=== PATIENT | male | born 1960 | race Caucasian/White ===

== ENCOUNTER → 2017-04-12 08:08 | Outpatient (CLI) | payer OTHER, SELFPAY ==
[2017-04-12 12:27] LABS: Absolute Lymphocyte Count 2.31 X10^3/ul (0.83-4.51); Absolute Neutrophil Count 3.6 X10^3/uL (2.0-7.7); Basophil# 0.02 X10^3/uL; Basophil% 0.3 % (0-1); Eosinophil# 0.08 X10^3/uL; Eosinophils% 1.2 % (0-5); Hematocrit 49.1 % (40-54); Hemoglobin 16.2 g/dl (13.0-16.5); Lymphocyte # 2.31 X10^3/ul (4.0); Lymphocyte % 35.6 % (19-41); Mean Corpuscular Hgb 32.5 pg (27.0-32.0); Mean Corpuscular Volume 98.6 fL (80-94); Mean Platelet Vol. 12.6 fl (6.2-12.0); Monocyte# 0.42 X10^3/uL; Monocyte% 6.5 % (0-10); Neutrophil # 3.64 X10^3/uL (2.7-7.7); Neutrophil % 56.2 % (47-70); Platelet Count 154 K/mm3 (150-450); RBC Distribution Width CV 14.4 % (11.6-14.6); RBC Distribution Width SD 51.5 fl (35.1-43.9); Red Blood Count 4.98 M/mm3 (4.6-6.2); White Blood Count 6.5 K/mm3 (4.4-11.0)
[2017-04-12 12:42] LABS: POSITIVE COUNT NO; POSITIVE DIFFERENTIAL NO; POSITIVE MORPHOLOGY NO
[2017-04-12 13:06] LABS: AST(SGOT) 23 U/L (15-37); Alanine Aminotransfer ALT/SGPT 51 U/L (16-61); Albumin, Serum 3.9 g/dL (3.2-5.0); Alkaline Phosphatase 83 U/L (45-117); Anion Gap 8 (5-15); BUN 13 mg/dL (7-18); BUN/Creat Ratio 11.6 RATIO (10-20); Chloride 102 mmol/L (98-107); Cholesterol 191 mg/dL (200); Creatinine, Serum 1.12 mg/dL (0.70-1.30); EST Glomerular Filtration Rate 71 mL/min (>60); Est Glom Filt Rate - Afr Amer 86 mL/min (>60); Globulin 3.8 g/dL (2.2-4.2); Glucose 98 mg/dL (74-106); High Density Lipoprotein 51 mg/dL; PSA,Total - Annual Screen 0.52 ng/mL (0.00-4.00); Protein, Total 7.7 g/dL (6.4-8.2); Sodium Level 139 mmol/L (136-145); Triglycerides 140 mg/dL; Very Low Density Lipoprotein 28 mg/dL (5-40)
== END ==
PROVIDERS: Family Provider Family Medicine; PCP Family Medicine; Visit Provider Family Medicine
DX: Z00.00 Encounter for general adult medical examination without abnormal findings (principal); E03.9 Hypothyroidism, unspecified; E78.5 Hyperlipidemia, unspecified; Z12.5 Encounter for screening for malignant neoplasm of prostate
CPT/HCPCS: 36415; 80053; 80061; 84153; 84443; 85025; G0103

== ENCOUNTER → 2017-06-11 08:42 | Outpatient (CLI) | payer OTHER, SELFPAY ==
[2017-06-11 12:23] LABS: T4 Free Direct 1.54 ng/dL (0.76-1.46); Thyroid Stim Hormone (TSH) 0.49 uIU/mL (0.358-3.74)
== END ==
LOC: LAB.FUTURE 12-12 00:44 → BFHLAB 07-16 13:40
PROVIDERS: Family Provider Family Medicine; PCP Family Medicine; Visit Provider Family Medicine
DX: E03.9 Hypothyroidism, unspecified (principal)
CPT/HCPCS: 36415; 84439; 84443

== ENCOUNTER → 2018-07-10 | Outpatient (CLI) | payer OTHER, SELFPAY ==
[2018-07-10 13:00] LABS: ALB/GLOB Ratio 1.2 RATIO (0.9-2.4); AST(SGOT) 14 U/L (15-37); Alanine Aminotransfer ALT/SGPT 30 U/L (16-61); Albumin, Serum 4.1 g/dL (3.2-5.0); Alkaline Phosphatase 80 U/L (45-117); Anion Gap 2 (5-15); BUN 16 mg/dL (7-18); Chloride 107 mmol/L (98-107); Cholesterol 138 mg/dL (200); Creatinine, Serum 1.14 mg/dL (0.70-1.30); EST Glomerular Filtration Rate 70 mL/min (>60); Est Glom Filt Rate - Afr Amer 84 mL/min (>60); Globulin 3.4 g/dL (2.2-4.2); Glucose 108 mg/dL (74-106); High Density Lipoprotein 48 mg/dL; Protein, Total 7.5 g/dL (6.4-8.2); Sodium Level 138 mmol/L (136-145); T4 Free Direct 1.47 ng/dL (0.76-1.46); Thyroid Stim Hormone (TSH) 0.26 uIU/mL (0.358-3.74); Triglycerides 90 mg/dL; Very Low Density Lipoprotein 18 mg/dL (5-40)
== END | disposition home or self-care (01) ==
LOC: LAB.FUTURE 08:28
PROVIDERS: Family Provider Family Medicine; PCP Family Medicine; Visit Provider Family Medicine
DX: Z00.00 Encounter for general adult medical examination without abnormal findings (principal); E03.9 Hypothyroidism, unspecified
CPT/HCPCS: 36415; 80053; 80061; 84439; 84443

== ENCOUNTER → 2018-08-12 05:35 | Outpatient (CLI) | payer OTHER, SELFPAY ==
--- NOTE | 2018-08-12 17:35 | TISS_PTH ---
PATIENT: FREDDIE DUMONT LOC: [facility] U#:[id number] AGE/SX: 64/M ROOM: RE08/12/[address]: Dr. Cisco Dozier, : 1960 BED: DIS: SPEC #: [id number] RECD: 08/13/18 12:08 STATUS: MICHAEL BERONICA #: [id number] ANALILIA: 08/12/18 17:[address]: Cisco Dozier DEPT: SURGICAL PATHOLOGY RECD BY: Tyesha Mack Tissues: Skin of head, NOS Procedures: Surgery Specimen Level IV HEADER OPERATION: Punch biopsy - scalp PRE-OP DIAGNOSIS: Change lesion anterior scalp, probable SK, rule out squamous cell TISSUE SUBMITTED: 4 mm punch biopsy, nevus anterior scalp MICROSCOPIC DIAGNOSIS Scalp lesion, punch biopsy: Superficially excised seborrheic keratosis. FA:celestine 08/14/18 MICROSCOPIC DESCRIPTION Slides are reviewed. GROSS DESCRIPTION Received is one container labeled with the patient's name and not further designated. The specimen consists of a grayish-white skin fragment measuring 2 mm in greatest dimension. The specimen is totally submitted in one cassette. / FA:celestine 08/13/18 TC:1 CPT: 34128
== END ==
PROVIDERS: Family Provider Family Medicine; PCP Family Medicine; Referring Provider Family Medicine; Visit Provider Family Medicine
DX: D22.4 Melanocytic nevi of scalp and neck (principal)
CPT/HCPCS: 88305

== ENCOUNTER → 2019-07-10 15:27 | Outpatient (CLI) | payer OTHER, SELFPAY | PROVIDERS: PCP Family Medicine; Visit Provider Family Medicine | DX: R30.0 Dysuria (principal) | CPT/HCPCS: 87086 ==

== ENCOUNTER → 2019-08-06 | Outpatient (CLI) | payer OTHER, SELFPAY ==
[2019-08-06 12:33] LABS: Absolute Lymphocyte Count 1.76 X10^3/uL (0.83-4.51); Basophil# 0.03 X10^3/uL; Basophil% 0.4 % (0-1); Eosinophil# 0.08 X10^3/uL; Eosinophils% 1.1 % (0-5); Hematocrit 48.3 % (40-54); Lymphocyte # 1.76 X10^3/ul (4.0); Lymphocyte % 23.9 % (19-41); Mean Corp Hgb Conc 33.1 g/dL (32-36); Mean Corpuscular Hgb 32.9 pg (27.0-32.0); Mean Corpuscular Volume 99.2 fL (80-94); Mean Platelet Vol. 12.8 fl (6.2-12.0); Monocyte% 6.8 % (0-10); NRBC Flagged by Analyzer 0 % (0-5); Neutrophil # 4.96 X10^3/uL (2.7-7.7); Neutrophil % 67.5 % (47-70); Platelet Count 124 K/mm3 (150-450); RBC Distribution Width CV 12.8 % (11.6-14.6); RBC Distribution Width SD 46.5 fl (35.1-43.9); Red Blood Count 4.87 M/mm3 (4.6-6.2); White Blood Count 7.4 K/mm3 (4.4-11.0)
[2019-08-06 12:39] LABS: Hemoglobin A1c 5.5 % (3.8-5.6)
[2019-08-06 12:42] LABS: ALB/GLOB Ratio 1.1 RATIO (0.9-2.4); AST(SGOT) 14 U/L (15-37); Alanine Aminotransfer ALT/SGPT 31 U/L (16-61); Alkaline Phosphatase 76 U/L (45-117); Anion Gap 7 (5-15); BUN 19 mg/dL (7-18); BUN/Creat Ratio 18.1 RATIO (10-20); Chloride 108 mmol/L (98-107); Cholesterol 142 mg/dL (200); Creatinine, Serum 1.05 mg/dL (0.70-1.30); EST Glomerular Filtration Rate 76 mL/min (>60); Est Glom Filt Rate - Afr Amer 92 mL/min (>60); Globulin 3.5 g/dL (2.2-4.2); Glucose 100 mg/dL (74-106); High Density Lipoprotein 40 mg/dL; PSA,Total - Annual Screen 0.48 ng/mL (0.00-4.00); Potassium 3.8 mmol/L (3.5-5.1); Protein, Total 7.5 g/dL (6.4-8.2); Sodium Level 142 mmol/L (136-145); T4 Free Direct 1.45 ng/dL (0.76-1.46); Thyroid Stim Hormone (TSH) 0.25 uIU/mL (0.358-3.74); Triglycerides 99 mg/dL; Very Low Density Lipoprotein 20 mg/dL (5-40)
== END | disposition home or self-care (01) ==
LOC: BFHLAB 08:03
PROVIDERS: PCP Family Medicine; Visit Provider Family Medicine
DX: Z00.00 Encounter for general adult medical examination without abnormal findings (principal); E03.9 Hypothyroidism, unspecified; R73.01 Impaired fasting glucose
CPT/HCPCS: 36415; 80053; 80061; 83036; 84153; 84439; 84443; 85025; G0103

== ENCOUNTER 2020-07-29 21:26 | Emergency (ER) | payer OTHER, SELFPAY ==
[2020-07-29 21:28] VITALS: BP 134/95; PULSE 74; RESP 18; TEMP 36.8; O2SAT 97; BMI 27.7
--- NOTE | 2020-07-29 21:37 | CT_ITS ---
STUDY: CT SOFT TISSUE NECK WITHOUT CONTRAST REASON FOR EXAM: Male, 60 years old. choking episode RADIATION DOSAGE (If Supplied By Facility): CTDIvol = ( 17.57 ) mGy, DLP = ( 654.11 ) mGycm TECHNIQUE: The patient was scanned in a multi-detector CT scanner. High resolution transaxial imaging was performed without the administration of intravenous contrast material. Sagittal and coronal images were reconstructed. Individualized dose optimization techniques were used for this CT. COMPARISON: None. FINDINGS: Normal bilateral parotid glands. Normal bilateral welder boilermaker spaces. Normal bilateral parapharyngeal spaces. Normal bilateral carotid spaces. Normal bilateral sublingual and submandibular glands and spaces. Normal visualized nasopharynx. Normal retropharyngeal space. Normal perivertebral space. Normal visualized bilateral faucial tonsils. The visualized tongue, tongue base and oropharynx are normal. The visualized cervical lymph nodes (levels I-) are within normal size limits, and maintain normal morphology. There is no demonstrated solid or cystic mass lesion. Normal epiglottis, bilateral vallecula and hypopharynx. The pre-epiglottic and paraglottic adipose spaces are normal. Normal visualized bilateral piriform sinuses, aryepiglottic folds, vocal cords, and arytenoid-cricoid articulations. Normal subglottic trachea. Normal bilateral lobes of the thyroid gland. Normal visualized pulmonary apices. Normal visualized paranasal sinuses. Normal visualized cervical spine. CT/Soft Tissue Neck without Contr IMPRESSION: Normal unenhanced CT examination of the soft tissues of the neck. Electronically Signed: Horacio Church DO at 22:59 EDT Tel , Service support ,
--- NOTE | 2020-07-29 21:39 | CT_ITS ---
STUDY: CT CHEST WITHOUT CONTRAST REASON FOR EXAM: Male, 60 years old. choking episode RADIATION DOSAGE (If Supplied By Facility): CTDIvol = ( 14.37 ) mGy, DLP = ( 405.42 ) mGycm TECHNIQUE: Transaxial imaging was performed without the administration of intravenous contrast material. Individualized dose optimization techniques were used for this CT. COMPARISON: None. FINDINGS: The lungs are normal. There is no demonstrated pleural abnormality. Normal heart and pericardium. Normal mediastinum. Normal hilar regions. Normal unenhanced pulmonary arteries. Normal aorta arch and descending thoracic aorta. Normal osseous structures. There is no demonstrated abnormality of the visualized upper abdomen. CT/Chest without Contrast IMPRESSION: Normal unenhanced CT Chest examination. Electronically Signed: Horacio Church DO at 22:59 EDT Tel , Service support ,
--- NOTE | 2020-07-29 21:39 | EDS_ITS ---
HPI History of Present Illness Chief Complaint: Foreign Body Detail of Chief Complaint: Choking episode Informant: patient and spouse/S.O. Narrative Narrative: Patient presents after what he refers was a choking episode that occurred this evening. Patient states he was not eating anything but suddenly felt his throat tightening and he could not get any air. He had a similar episode happen this past Saturday. At that time he was eating and choked on something. He went to the local fire station and they perform the Heimlich maneuver. He states he was fine throughout the week with no other symptoms. Tonight he was not eating but had the same sensation develop. He states paramedics did perform a Heimlich maneuver and he did get some phlegm up but no food particles. Patient does recall 2 similar episodes in the past several [facility] History (Updated 07/29/20 @ 23:[address] Melonie Miguel MD) High cholesterol Hypothyroidism Home Medications levothyroxine 150 mcg PO DAILY 07/29/20 [History Last Taken Unknown] prednisone 40 mg PO DAILY #8 tab 07/29/20 [Rx Last Taken Unknown] simvastatin 21 mg PO DAILY 07/29/20 [History Last Taken Unknown] Allergy/AdvReac Type Severity Reaction Status Date / Time No Known Allergies Allergy Verified 07/29/20 21:31 Social History Smoking Status: Current every day smoker tobacco type: cigarettes ROS ROS ED Constitutional Constitutional ED: Denies chills or fever(s) Eyes Eyes: Denies change in vision ENT ENT ED: Denies sore throat Cardiovascular Cardiovascular: Denies chest pain Respiratory/Chest Respiratory/Chest: Denies cough or dyspnea Gastrointestinal Gastrointestinal: Denies abdominal pain, diarrhea, nausea or vomiting Genitourinary Genitourinary ED: Denies dysuria Musculoskeletal Musculoskeletal: Denies back pain Integumentary Denies rash Neurologic Neurologic: Denies headache(s) or weakness Psychiatric Psychiatric: Denies anxiety or depression Endocrine Endocrinology: Denies polydipsia or polyuria Allergic/Immunologic Allergic/Immunologic ED: Denies urticaria EXAM Physical Exam Const Vital Signs: 07/29/20 21:28 07/29/20 21:32 07/29/20 22:50 Temperature 98.3 F Temperature Source Oral Pulse Rate 74 62 Respiratory Rate 18 15 Respiratory Pattern Normal Blood Pressure 134/95 H 130/88 H Blood Pressure Mean 108 102 Pulse Ox 97 94 Oxygen Delivery Method Room Air Room Air Positive well nourished and well developed General Appearance ED: well developed Eyes PERRL and EOMs intact bilaterally Neck no lymphadenopathy and supple Chest Wall inspection of chest normal and palpation of chest normal Resp normal respiratory effort and clear to auscultation bilaterally Cardio regular rate and regular rhythm GI normal to inspection, nondistended, normoactive bowel sounds Extremity normal to inspection Neuro oriented x3 Sensorium / Orientation: alert Psych mental status grossly normal Skin no rashes or lesions noted MDM MDM MDM Narrative Medical decision making narrative: Patient was given Benadryl and Solu-Medrol to ensure no allergic reaction or airway swelling. He is placed on alarm security or surveillance monitor with pulse ox. CT scan of the neck and chest are obtained. Radiography Diagnostic Testing: Radiology Impression Soft Tissue Neck CT 07/29/20 21:37 IMPRESSION: Normal unenhanced CT examination of the soft tissues of the neck. Electronically Signed: Horacio Church DO at 22:59 EDT Tel , Service support , Chest CT 07/29/20 21:39 IMPRESSION: Normal unenhanced CT Chest examination. Electronically Signed: Horacio Church DO at 22:59 EDT Tel , Service support , Treatment and Re-Evaluation Comments:: CT scans do not show any obvious foreign body or abnormal narrowing of the airway. No masses noted. On repeat evaluation patient is resting comfortably and states he feels like his airway is more open. I do question as to whether the patient may have vocal cord spasm causing his symptoms as he did not have a particular choking episode tonight as he was not eating anything. I will refer him to ENT for follow-up. Discharge Plan Triage Chief Complaint: Foreign Body ED Provider: Melonie Miguel Dx/Rx/DC Orders Clinical Impression: Spasm of vocal cords Instructions: ED Dyspnea Prescriptions: New prednisone 20 mg tablet 40 mg PO DAILY Qty: 8 RF: 0 No Action simvastatin 20 mg tablet 21 mg PO DAILY RF: 0 levothyroxine 150 mcg tablet 150 mcg PO DAILY RF: 0 Primary Care Provider: Cisco Dozier Referrals: Wolfgang Chavez MD [STAFF PHYSICIAN] - As soon as possible Cisco Dozier DO [Primary Care Provider] - As soon as possible Disposition Disposition: Home, self care
[2020-07-29] MEDS: 0.9% Normal Saline 1,000 ML 150 ML IV (21:53)
[2020-07-29] MEDS: MethylPREDNISolone 125 MG/2 ML Vial IV (21:54)
[2020-07-29] MEDS: DiphenhydrAMINE 50 MG/ML Syringe 25 MG IV (21:54)
[2020-07-29 22:50] VITALS: BP 130/88; PULSE 62; RESP 15; O2SAT 94
[2020-07-29 23:11] VITALS: BP 136/92; PULSE 68; RESP 19; O2SAT 97
== END 2020-07-29 23:21 | disposition home or self-care (01) ==
PROVIDERS: Emergency Provider Emergency Medicine; PCP Family Medicine
DX: J38.3 Other diseases of vocal cords (principal); E78.00 Pure hypercholesterolemia, unspecified; E03.9 Hypothyroidism, unspecified; F17.210 Nicotine dependence, cigarettes, uncomplicated; Z79.899 Other long term (current) drug therapy
CPT/HCPCS: 70490; 71250; 96361; 96374; 96375; 99285; J7030

== ENCOUNTER → 2020-08-02 07:07 | Outpatient (CLI) | payer OTHER, SELFPAY ==
[2020-07-29 21:28] VITALS: BMI 27.7
[2020-08-02 10:24] LABS: Absolute Lymphocyte Count 1.19 X10^3/uL (0.83-4.51); Basophil# 0.02 X10^3/uL; Basophil% 0.2 % (0-1); Hematocrit 48.6 % (40-54); Hemoglobin 16.2 g/dL (13.0-16.5); Lymphocyte # 1.19 X10^3/ul (0.83-4.51); Lymphocyte % 13.8 % (19-41); Mean Corp Hgb Conc 33.3 g/dL (32-36); Mean Platelet Vol. 11.8 fl (6.2-12.0); Monocyte# 0.35 X10^3/uL; Monocyte% 4.1 % (0-10); NRBC Flagged by Analyzer 0 % (0-5); Neutrophil % 81.3 % (47-70); Platelet Count 183 K/mm3 (150-450); RBC Distribution Width CV 13.1 % (11.6-14.6); RBC Distribution Width SD 46.4 fl (35.1-43.9); Red Blood Count 5.06 M/mm3 (4.6-6.2); White Blood Count 8.6 K/mm3 (4.4-11.0)
[2020-08-02 10:43] LABS: Hemoglobin A1c 5.7 % (3.8-5.6)
[2020-08-02 10:47] LABS: ALB/GLOB Ratio 1.1 RATIO (0.9-2.4); AST(SGOT) 14 U/L (15-37); Alanine Aminotransfer ALT/SGPT 27 U/L (16-61); Albumin, Serum 3.8 g/dL (3.2-5.0); Alkaline Phosphatase 88 U/L (45-117); Anion Gap 6 (5-15); BUN 21 mg/dL (7-18); BUN/Creat Ratio 19.1 RATIO (10-20); Calcium,Total 9.1 mg/dL (8.5-10.1); Chloride 105 mmol/L (98-107); Cholesterol 159 mg/dL (200); EST Glomerular Filtration Rate 72 mL/min (>60); Est Glom Filt Rate - Afr Amer 87 mL/min (>60); Globulin 3.4 g/dL (2.2-4.2); Glucose 110 mg/dL (74-106); High Density Lipoprotein 54 mg/dL; PSA,Total - Annual Screen 0.57 ng/mL (0.00-4.00); Potassium 3.9 mmol/L (3.5-5.1); Protein, Total 7.2 g/dL (6.4-8.2); Sodium Level 139 mmol/L (136-145); T4 Free Direct 1.47 ng/dL (0.76-1.46); Triglycerides 54 mg/dL; Very Low Density Lipoprotein 11 mg/dL (5-40)
== END ==
PROVIDERS: PCP Family Medicine; Referring Provider Family Medicine; Visit Provider Family Medicine
DX: Z00.00 Encounter for general adult medical examination without abnormal findings (principal); E03.9 Hypothyroidism, unspecified; R73.01 Impaired fasting glucose; Z12.5 Encounter for screening for malignant neoplasm of prostate
CPT/HCPCS: 36415; 80053; 80061; 83036; 84153; 84439; 84443; 85025; G0103

== ENCOUNTER → 2020-08-30 14:55 | Outpatient (CLI) | payer OTHER, SELFPAY ==
--- NOTE | 2020-08-30 15:56 | SP.MBSS_ITS ---
Modified Barium Swallow - Patient Information Study Date: 08/30/20 Study Time: 15:00 Direct Billable Minutes: 120 Total Minutes procedure & reportin Diagnosis: Dysphagia, unspecified (R13.10) Referring Physician: Cisco Dozier Reason for Referral: Objectively assess swallow function and risk for choking. Medical History: PMH: High cholesterol, Hypothyroidism, thyroid removed (1998). The patient reports history of choking. He described 4 episodes that occurred in the past 2-3 years. First episode occurred without food or drink, but the patient was gasping for breath. 2nd episode occurred with chicken. 3rd and 4th episodes occurred just 2 weeks ago. He first choked on Evan's and required the Heimlich maneuver. He then choked while drinking two days later and went to the ED. He was recommended for an ENT referral. Upon following up with his PCP, the patient was referred for MBS study prior to ENT visit. Current Diet Ordered: Regular Textures / Thin Liquids Dentition: WNL Mental Status: WNL Respiratory Status: Oxygenating on Room Air - Study Findings Consistencies: Thin Liquid, [place] Thick Liquid, Honey Thick Liquid, Pudding, Cookie - Penetration-Aspiration Scale Penetration-Aspiration Scale: OBJECTIVE ASSESSMENT OF SWALLOW FUNCTION (QUANTITATIVE ? PER TRIAL): PENETRATION / ASPIRATION SCALE (GROSS): 1 = does not enter airway 2 = enters airway/above vocal folds/ejected 3 = enters airway/above vocal folds/not ejected 4 = enters airway/contacts vocal folds/ejected 5 = enters airway/contacts vocal folds/not ejected 6 = enters airway/below vocal folds/ejected 7 = enters airway/below vocal folds/not ejected despite effort 8 = enters airway/below vocal folds/no effort VIDEOFLOROSCOPIC SCALE SCORE (GROSS): Grade I = aspiration of material that has penetrated into the laryngeal vestibule, intact cough reflex Grade II = aspiration < 10 % of the bolus, intact cough reflex Grade III = aspiration of < 10 % of the bolus, reduced cough reflex or aspiration of > 10 % of the bolus, intact cough reflex Grade IV = aspiration of > 10 % of the bolus, reduced cough reflex - Penetration-Aspiration Scale Score Thin Liquid via teaspoon Result: 1= does not enter airway Thin Liquid via small single sip from cup Result: 1= does not enter airway Thin Liquid via large single sip from cup Result: 1= does not enter airway Thin Liquid via sequential sips from cup Result: 1= does not enter airway [place] Thick Liquid via small single sip from cup Result: 1= does not enter airway Honey Thick Liquid via small single sip from cup Result: 1= does not enter airway Comment: Min retrograde flow observed through cricopharyngeus; however, pt independently initiated second swallow to effectively clear contrast through UES. Pudding Result: 1= does not enter airway Cookie Result: 1= does not enter airway Thin Liquid via sequential sip from straw Result: 2= enter airway/above vocal folds/ejected Cookie Trial 2 with esophageal screen Result: 1= does not enter airway Comment: Retrograde flow of bolus observed below UES. - Oral Phase Labial Seal: No Labial Escape Tongue Control During Bolus Hold: Posterior escape of less than half of bolus Bolus Preparation/Mastication: Slow prolonged chewing/mashing with complete recollection Bolus Transport/Lingual Motion: Repetitive/disorganized tongue motion - Patient had resulting piecemeal deglutition of pudding and cookie trials; however, patient independently initiated second swallow to effectively clear oral residues. Oral Residue: Residue collection on oral structures - Pharyngeal Phase Initiation of Pharyngeal Swallow: Bolus head in pyriforms - Observed with sips of thin liquids consumed via straw. Majority of trials initiated in vallecula or posterior surface of the epiglottis. Soft Palate Elevation: Trace column of contrast/air between soft palate and pharyngeal wall Laryngeal Elevation: Partial superior movement thyroid cart/partial apprx aryt- epig petiole Anterior Hyoid Excursion: Complete anterior movement Epiglottic Movement: Partial inversion Laryngeal Vestibule Closure at Height of Swallow: Incomplete; narrow column of air/contrast in laryngeal vestibule - Observed only with sequential sip of thin liquid via straw. Pharyngeal Stripping Wave: Present - diminished Pharyngoesophageal Segment Opening: Parital distension and partial duration; parital obstruction of flow Tongue Base Retraction: Narrow column of contrast between tongue base & post. pharyngeal wall Pharyngeal Residue: Trace residue within or on pharyngeal structures - Esophageal Phase Esophageal Clearance: Esophageal retention w/ retrograde flow below pharyngoesophageal seg. - Mild retrograde flow of cookie and pudding trials. Minimal esophageal retention observed. - Treatment Strategies Effects of treatment strategies attemped:: Double swallow = effective. Pt independently elicited double swallows to clear retrograde flow of honey bolus and mild oral residues. Decreased bolus size/rate = effective. No straws = effective. Improved bolus control and swallow onset. - Diagnosis/Impression Diagnosis: Mild oropharyngeal phase dysphagia (R13.12) Impression: The oral phase of the swallow is marked by mild deficits in bolus transport characterized by prolonged but effective mastication, repetitive tongue motion, and mild oral residue. The patient presented with piecemeal deglutition of various consistencies; however, he was able to independently and effectively clear oral residues. He demonstrated decreased bolus control with sips consumed via straw with premature posterior spillage resulting in suboptimal bolus head placement in the pyriform sinus prior to swallow onset. The pharyngeal phase of the swallow is primarily marked by mildy delayed initiation of the pharyngeal swallow. Additionally, the patient had mildly decreased laryngeal elevation and pharyngeal contraction; however, he demonstrated good airway closure during the swallow. He had trace pharyngeal residues after the swallow and mildly decreased opening of the cricopharyngeus. He had one occurrence of laryngeal penetration of thin liquids consumed sequentially via straw, which fully during the swallow. 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 For a majority of trials, the bar appeared to have no impact on UES opening. - Recommendations Diet: Regular Textures, Thin Liquids Comment: Thorough mastication. Compensatory Strategies: Small Bites, Small Sips, No Straws, Slow Rate, Sitting upright, Remain sitting upright for 30 minutes after PO intake Recommend Repeat Modified Barium Swallow: No Need for Skilled Speech Therapy Services: No Recommended Referrals: GI Consult - Would recommend patient for GI consult due to mild retrograde flow of bolus and mild esophageal retention, as well as address concern for cricopharyngeal bar noted in impressions., ENT Consult Education Completed: 1. Described result of evaluation., 5. Patient demonstrates recommended strategies., 6. Family/caregivers demonstrate recommended strategies. - Status Active ST Patient: Not Active - Contact Information [facility] Speech Therapy:: Dulce Maria Anderson M.A., [facility] Speech Language Pathologist [facility] [address] [place] [address] [email or web address] [phone]
== END ==
PROVIDERS: PCP Family Medicine; Referring Provider Family Medicine; Visit Provider Family Medicine
DX: R13.10 Dysphagia, unspecified (principal)
CPT/HCPCS: 74230; 92611

== ENCOUNTER → 2020-11-15 17:45 | Outpatient (CLI) | payer OTHER, SELFPAY ==
--- NOTE | 2020-11-15 17:50 | MRI_ITS ---
STUDY: MRI BRAIN WITH AND WITHOUT CONTRAST REASON FOR EXAM: Male, 60 years old. Dysphagia, apneic attacks, concern for stroke TECHNIQUE: Standardized multiplanar fat and water weighted pulse sequences were obtained. 17ml Dotarem via IV was administered for the contrast portion of the examination. COMPARISON: None. FINDINGS: Normal size of the ventricles and extra-axial spaces for the patient''s age. Normal white matter tracts of the supratentorial brain. There is no evidence for recent intracranial ischemia or other cause of cytotoxic edema on diffusion weighted imaging (DWI). Normal T2* images of the brain without demonstrated susceptibility artifact. There is no demonstrated hemosiderin stain. Normal bilateral basal ganglia. Normal thalami. There is no extra-axial fluid accumulation. Normal flow voids within the major intracranial circulation suggesting patency by spin echo criteria. Normal venous enhancement. There is no enhancing intra-axial or extra-axial abnormality. Normal sella turcica, pituitary gland, infundibular stalk, optic chiasm and hypothalamus. Normal tectal plate and pineal gland. Normal midbrain, stacy and medulla. Normal cerebellum. Normal basal cisterns. Normal bilateral temporal bones. Normal bilateral internal auditory canals. No demonstrated orbital abnormality, within the constraints of a routine brain study. Normal visualized paranasal sinuses. Normal calvarium and skull base. Normal visualized soft tissue structures. Normal visualized upper cervical spine. MRI/Brain W/WO Contrast IMPRESSION: No finding of acute or chronic infarct. Normal unenhanced and enhanced MRI of the brain. Electronically Signed: Pj Hadley MD at 3:38 EDT Tel , Service support ,
== END ==
PROVIDERS: PCP Family Medicine; Referring Provider Internal Medicine Gastroenterology; Visit Provider Internal Medicine Gastroenterology
DX: R13.13 Dysphagia, pharyngeal phase (principal)
CPT/HCPCS: 70553; A9575

== ENCOUNTER 2020-11-23 09:26 | Day surgery (SDC) | payer OTHER, SELFPAY ==
[2020-11-23] VITALS (7 sets, daily range): BP systolic 138–145; BP diastolic 78–102; PULSE 55–82; RESP 16; TEMP 36.1–36.7; O2SAT 97–100; BMI 27.6
--- NOTE | 2020-11-23 | EGD_PTH ---
PATIENT: FREDDIE DUMONT LOC: EN U#:[id number] AGE/SX: 60/M ROOM: RE11/23/[address]: Dr. Ravinder Beauchamp DO : 1960 BED: DIS: 11/23/2020 SPEC #: [id number] RECD: 11/23/20 14:17 STATUS: MICHAEL BERONICA #: [id number] ANALILIA: 11/23/20 00:[address]: Ravinder Beauchamp DEPT: SURGICAL PATHOLOGY RECD BY: Kal Doss ENTERED: 11/24/20 09:04 SP TYPE: EGD BIOPSY OT DR: Dr. Cisco Dozier DO Tissues: Esophageal mucous membrane Procedures: Special Stain Group II Surgery Specimen Level IV Alcian Blue/PAS (control) HEADER OPERATION: EGD ([facility] [place]) PRE-OP DIAGNOSIS: Cricopharyngeal dysphagia TISSUE SUBMITTED: Biopsy of distal esophagus MICROSCOPIC DIAGNOSIS Distal esophagus, biopsy: Gastroesophageal junctional mucosa with mild chronic inflammation. No evidence of goblet cell metaplasia. Focal changes of reflux. See comment. AM:celestine 11/25/2020 COMMENT Alcian blue/PAS stain with matched control supports the above diagnosis. MICROSCOPIC DESCRIPTION Slides are reviewed. GROSS DESCRIPTION Received in fixative is one container labeled with the patient's name and designated biopsy of distal esophagus. The specimen consists of multiple irregular fragments of light arthur soft tissue that in aggregate measure 0.8 x 0.3 x 0.1 cm. The specimen is totally submitted in one cassette. / SJ:celestine 11/24/20 TC:3 CPT: 35532, 49505
[2020-11-23] MEDS: Lactated Ringers 1,000 ML 100 ML IV (10:02)
--- NOTE | 2020-11-23 11:37 | HP.PCM_ITS ---
History and Physical Date of Admission: 11/23/20 [facility] [address] [place] [address] OFFICE VISITDate of Service: 11/02/20 MR#:[id number]:[id number]: FREDDIE DUMONT [facility] #:[id number]:[id number] Provider:Ravinder Friend, DOAge/Sex: 60/M [place] [place] Intake Vital Signs 11/02/20 16:05 Height 5 ft 10 in Weight: 195 lb BMI 27.9 BP 129/86 H Blood Pressure Location Rt brachial Position Sitting Respiration 16 Pulse 59 L Pulse Source Monitor Pulse Oximetry (%) 97 Oxygen Delivery Method room air Intake Visit 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 Accompanied by: Is patient in pain?: No Allergies No Known Allergies Allergy (Verified 11/02/20 15:58) Medications levothyroxine 150 mcg PO DAILY 07/29/20 [History Confirmed 11/02/20] simvastatin 20 mg tablet 20 mg PO DAILY tab 11/02/20 [History Confirmed 11/02/20] tamsulosin 0.4 mg capsule 0.4 mg PO DAILY 11/02/20 [History Confirmed 11/02/20] PFSH Medical History Bilateral hearing loss High cholesterol Hypothyroidism Surgical History H/O thyroidectomy Social History Smoking Status: Current every day smoker tobacco type: cigarettes HPI HPI Details: FREDDIE DUMONT, is a 60 M who presents to the office today for the diagnosis of cricopharyngeal dysphagia. He comes in today with his with a chief complaint of inability to breathe on 2 separate occasions in July. He says that he was just eating a [employer] cup and he developed acute onset of the inability to breathe. He felt like something was stuck in his trachea. The Heimlich maneuver was performed on him and nothing came up. He was rushed to the hospital for emergency evaluation. By the time he got to the emergency room his symptoms are resolved. He had the same thing happen to him proximally 4 days later when he was drinking water. Biochemical analysis in the ED did not show any abnormalities. He got a chest x-ray that did not show any abnormalities. He also got a CT of the chest which showed normal lung lopez without any signs of emphysema, masses, fibrosis or infection. He got a CT of the neck that did not show any gross abnormalities. He does have a history of Graves' disease requiring a thyroidectomy. He is on thyroid replacement at this time. He underwent a swallowing study and the report is pending ; however, there was a mention of possible inflammation around the area of the cricopharyngeus. He has no history of gastroesophageal reflux disease. He is not get any chest pain. He does not have shortness of breath. He is not a smoker. He does have a history of DVT after an orthoscopic surgery of the left knee. He denies any dysphagia or diet aphasia. ROS Const Constitutional: No anorexia, body ache, chills, excessive sweating, fatigue, fever(s), frequent falls, headache(s), decreased energy, malaise, night sweats, snoring, weakness, weight change, sleep problems, abnormal sleep pattern, change in appetite or other Eyes Eyes: No blurry vision, change in vision, double vision, irritation, discharge, vision loss, dry eyes, bulging eyes, floaters, visual disturbances, eye pain, Light sensitivity, spots in vision, tunnel vision or other ENT ENT: No abnormal hearing, headache(s), difficulty swallowing, neck pain or other Resp Respiratory: No snoring Cardio Cardiology: No chest pain at rest, chest pain with exertion, leg pain with exertion, excessive sweating, shortness of breath, dyspnea on exertion, generalized swelling, irregular heart rhythm, lightheadedness, orthopnea, radiating jaw, neck or arm pain, fast heart rate, slow heart rate, palpitations, difficulty breathing or other Gastro GI: No abdominal pain, belching, bloating, change in bowel habits, change in stool character, coffee ground emesis, constipation, cramping, diarrhea, heartburn, difficulty swallowing, feeling full early, excessive flatus, incontinent of stools, Vomiting blood/hematemesis, Blood in stool, loose stools, Black,tarry stools, nausea/dyspepsia, pain with swallowing, vomiting or other Genitourinary Male: Positive for urinary frequency and urinary urgency; No difficulty urinating, burning urination, painful urination, urinary incontinence, urinary hesitancy, urinary retention, blood in urine, Frequent nighttime urination/ nocturia, post void dribbling, suprapubic fullness, side pain, sexual problems, genital lesions, genital itching, erectile dysfunction, penile discharge, difficulty with ejaculations, blood in semen, scrotal swelling, testicle lump, testicle pain or other Musc Musculoskeletal: No abnormal gait, joint pain, back pain, deformity, joint swelling, limited range of motion, loss of height, muscle cramps, muscle weakness, decreased muscle mass, myalgias, neck pain, numbness, radiating pain into limb, stiffness, tingling, Arthritis, sciatica, restless legs, leg pain at night, leg pain with exertion or other Skin Skin: No acne, hair loss in leg, change in hair, nail changes, boil, change in skin color, dry skin, redness, excessive hair growth, yellowing of the eye, lesions, itchy eyes, rash, skin pain, skin ulcer, sores, skin swelling, wounds or other Neuro Neurology: No abnormal gait, abnormal hearing, abnormal movements, abnormal speech, behavioral changes, confusion, unsteady gait/balance, dizziness, weakness, frequent falls, headache(s), lack of coordination, loss of vision, memory loss, numbness, tingling, visual disturbances, restless legs, fainting, tremor(s), Increased tone in limbs, paralysis, seizures or other Psych Psychiatric: No abnormal sleep pattern, No lack of enjoyment, No anxiety, No behavioral changes, No change in appetite, No confusion, No depression, No difficulty concentrating, No hopelessness, No irritability, No memory loss, No mood swings, No panic attacks, No paranoia, No Thoughts of harming yourself/Others, No hallucinations, No Behavioral Problems, No Compulsive Behavior, No hyperactivity, No inattentiveness, No obsessions/compulsions, No Temper Tantrums, No suicidal ideation and No other Endo Endocrine: No change in body appearance, cold intolerance, excessive sweating, fatigue, flushing, heat intolerance, increased thirst/drinking, increased hunge r, increased urine leakage, weight change or other Aller/Imm Allergy/Immunologic: No itchy eyes Luis/Lymp Hematologic/Lymphatic: Positive for easy bleeding and easy bruising Exam Const General: cooperative and comfortable Nutritional Appearance: average body habitus and well nourished HENMT Head: normal to inspection Ears: hearing grossly normal bilaterally Nose: external nose normal Face and sinus: normal facial exam Mouth: oral mucosae normal Throat: posterior oropharynx normal Eyes General: appearance normal, both eyes and all related structures Neck Neck: normal visual inspection Chest Chest palpation & inspection: normal inspection of the chest and normal palpation of entire chest wall Resp Effort & Inspection: normal respiratory effort Auscultation: Bilateral: Clear to Auscultation Cardio Palpation: normal PMI Rate: regular rate Rhythm: regular rhythm GI Inspection: normal to inspection Auscultation: normal bowel sounds Percussion: normal to percussion Palpation: no hepatosplenomegaly Skin General: no rashes or lesions noted Neuro General: patient alert Extrem General: normal to inspection Psych Affect: normal affect Quality Reporting Tobacco Screening ([facility] 138) Smoking Status: Current every day smoker Assessment and Plan Assessment and Plan (1) Cricopharyngeal dysphagia: Status: Acute Orders: Orders: Brain WITH Contrast Today Plan - Dr. Castellon Friend, DO: Thinks that his medulla and stacy should be evaluated due to the fact that he is having recurrent trouble swallowing. I also think he would benefit from an upper endoscopy for full evaluation of the cricopharyngeus and epiglottis. Also the differential diagnosis would be recurrent laryngeal spasm from such foods that he is eating. I did encourage him to eat slower. He is okay with this plan. Thank you very much for allowing me to participate in care of this patient. Coding Level of Care Code Off vis,new,level 4 Diagnoses Cricopharyngeal dysphagia R13.13
--- NOTE | 2020-11-23 12:08 | OP.EGD_ITS ---
Patient Name: Mauro Cole Procedure Date: 11/23/2020 11:11 AM Date of : 1960 Age: 60 Procedure: Upper GI endoscopy Indications: Dysphagia Providers: Ravinder Beauchamp DO Referring MD: Cisco Dozier Medicines: Monitored Anesthesia Care Patient Profile: This is a 60 year old male. Refer to note in patient chart for documentation of history and physical. Patient has symptoms of dysphagia with both liquids and solids. The symptoms first began 08,. Complications: No immediate complications. Procedure: Pre-Anesthesia Assessment: - Prior to the procedure, a History and Physical was performed, and patient medications and allergies were reviewed. The patient is competent. The risks and benefits of the procedure and the sedation options and risks were discussed with the patient. All questions were answered and informed consent was obtained. Patient identification and proposed procedure were verified by the physician in the pre-procedure area. Mental Status Examination: alert and oriented. Airway Examination: normal oropharyngeal airway and neck mobility. Respiratory Examination: clear to auscultation. CV Examination: normal. Prophylactic Antibiotics: The patient does not require prophylactic antibiotics. Prior Anticoagulants: The patient has taken no previous anticoagulant or antiplatelet agents. ASA Grade Assessment: II - A patient with mild systemic disease. After reviewing the risks and benefits, the patient was deemed in satisfactory condition to undergo the procedure. The anesthesia plan was to use moderate sedation / analgesia (conscious sedation). Immediately prior to administration of medications, the patient was re-assessed for adequacy to receive sedatives. The heart rate, respiratory rate, oxygen saturations, blood pressure, adequacy of pulmonary ventilation, and response to care were monitored throughout the procedure. The physical status of the patient was re-assessed after the procedure. After obtaining informed consent, the endoscope was passed under direct vision. Throughout the procedure, the patient's blood pressure, pulse, and oxygen saturations were monitored continuously. The gastroscope was introduced through the mouth, and advanced to the second part of duodenum. The upper GI endoscopy was performed with moderate difficulty due to the patient's oxygen desaturation. The patient tolerated the procedure well. He went into laryngeal spasm during the procedure. I gave him albuterol and it helped to increase his oxygen saturation and his respiratory compromise. Moderate Sedation: Moderate (conscious) sedation was administered by the endoscopy nurse and supervised by the endoscopist. The patient's oxygen saturation, heart rate, blood pressure and response to care were monitored. Scope In: 11:44:08 AM Scope Out: 11:56:14 AM Total Procedure Duration Time 0 hours 12 minutes 6 seconds Findings: LA Grade B (one or more mucosal breaks greater than 5 mm, not extending between the tops of two mucosal folds) esophagitis with no bleeding was found. Biopsies were taken with a cold forceps for histology. Verification of patient identification for the specimen was done. Estimated blood loss was minimal. The entire examined stomach was normal. The second portion of the duodenum was normal. Impression: - LA Grade B reflux esophagitis. Biopsied. - Normal stomach. - Normal second portion of the duodenum. Recommendation: - Discharge patient to home. - Resume previous diet. - Continue present medications. - Await pathology results. - Repeat upper endoscopy in 1 year for surveillance. - Return to GI office in 1 week. Procedure Code(s): --- Professional --- 68680, Esophagogastroduodenoscopy, flexible, transoral; with biopsy, single or multiple CPT copyright 2017 [employer]. All rights reserved. The codes documented in this report are preliminary and upon reconciliation specialist review may be revised to meet current compliance requirements. Ravinder Beauchamp DO 11/23/2020 12:08:15 PM This report has been signed electronically. Number of Addenda: 2 Note Initiated On: 11/23/2020 11:11 AM Addendum Number: 1 Addendum Date: 11/25/2020 6:26:29 PM The patient was noted to stop breathing during the procedure. This was a 5-minute period where he had to have supplemental oxygen and had to be bagged during the procedure. Eventually he was given albuterol and steroids and he began to breathe with less supplemental oxygen. This was shortly after he was given anesthesia. He has no pre-existing history of obstructive sleep apnea but he does have a history of what is believed to be laryngeal spasm. He has gone to the emergency room on several occasions to the inability to breathe. He has no history of COPD or lung disease. Ravinder Beauchamp DO 11/25/2020 6:28:43 PM This report has been signed electronically. Addendum Number: 2 Addendum Date: 10/19/2021 4:21:41 PM MAC was used instead of moderate sedation for this patient. Ravinder Beauchamp DO 10/19/2021 4:21:45 PM This report has been signed electronically.
--- NOTE | 2020-11-23 12:09 | OP.CCLET_ITS ---
10/19/2021 Cisco Dozier [address] [facility] [place] [address] Re : Upper GI endoscopy procedure for Mauro Cole Dear Dr. Dozier This procedure was performed on Monday, November 23, 2020. My impressions and recommendations are as follows: Impressions : - LA Grade B reflux esophagitis. Biopsied. - Normal stomach. - Normal second portion of the duodenum. Recommendations : - Discharge patient to home. - Resume previous diet. - Continue present medications. - Await pathology results. - Repeat upper endoscopy in 1 year for surveillance. - Return to GI office in 1 week. My findings are described in the full procedure note, which is enclosed. If I can be of further assistance, please feel free to contact me at . Sincerely, Ravinder Beauchamp, 11/23/2020 12:08:15 PM This report has been signed electronically.
== END 2020-11-23 12:45 ==
LOC: EN 09:32 → AC 09:32
PROVIDERS: PCP Family Medicine; Referring Provider Family Medicine; Visit Provider Internal Medicine Gastroenterology
PROC: 0DJ08ZZ Inspection of Upper Intestinal Tract, Via Natural or Artificial Opening Endoscopic (ICD-10-PCS; CPT 43235; principal; 2020-11-23 10:25)
DX: K21.00 Gastro-esophageal reflux disease with esophagitis, without bleeding (principal); J38.5 Laryngeal spasm; R13.13 Dysphagia, pharyngeal phase; E89.0 Postprocedural hypothyroidism; E78.00 Pure hypercholesterolemia, unspecified; F17.210 Nicotine dependence, cigarettes, uncomplicated; Z86.718 Personal history of other venous thrombosis and embolism; Z79.899 Other long term (current) drug therapy
CPT/HCPCS: 43239; 88305; 88313; J7120; J2405

== ENCOUNTER → 2021-01-09 | Outpatient (CLI) | payer OTHER, SELFPAY | END | disposition home or self-care (01) | LOC: LABSPEC 12:41 | PROVIDERS: PCP Family Medicine; Visit Provider Family Medicine | DX: Z20.822 Contact with and (suspected) exposure to COVID-19 (principal) | CPT/HCPCS: 87633; 87635; U0005; U0003 ==

== ENCOUNTER 2021-01-13 17:59 | Emergency (ER) | payer OTHER, SELFPAY ==
[2021-01-13] VITALS (8 sets, daily range): BP systolic 127–159; BP diastolic 90–105; PULSE 80–98; RESP 14–20; TEMP 35.9–36.7; O2SAT 94–99
--- NOTE | 2021-01-13 18:16 | RAD_ITS ---
STUDY: X-RAY CHEST REASON FOR EXAM: Male, 60 years old. syncope TECHNIQUE: AP COMPARISON: None. FINDINGS: EKG leads project over the chest. The lungs are clear and expanded. There is no demonstrated pleural abnormality. Normal size heart. Normal mediastinum and marv. Normal visualized pulmonary arteries. There is atherosclerotic tortuosity of the aortic arch and descending thoracic aorta. Normal visualized thoracic spine. Normal visualized ribs, clavicles, and shoulders. There is no demonstrated abnormality of the visualized soft tissue structures of the upper abdomen. RAD/Chest 1 View (Portable) IMPRESSION: Nonacute portable x-ray examination of the chest. Electronically Signed: Fritz Wing MD (Brooks) at 20:09 EST , Service support ,
--- NOTE | 2021-01-13 18:16 | RAD_ITS ---
STUDY: X-RAY - SOFT TISSUE NECK REASON FOR EXAM: Male, 60 years old. laryngospasm TECHNIQUE: 2 view(s) of the neck were obtained. COMPARISON: None. FINDINGS: Normal visualized nasopharynx, oropharynx, hypopharynx. Normal epiglottis. Normal visualized subglottic tracheal air column. Normal prevertebral soft tissue structures. There are degenerative changes of the cervical spine with cervical spondylosis. The soft tissue structures are unremarkable. RAD/Neck for Soft Tissue IMPRESSION: Normal x-ray soft tissue neck. Electronically Signed: Fritz Wing MD (Brooks) at 20:10 EST , Service support ,
--- NOTE | 2021-01-13 18:16 | EKG12_ITS ---
Test Reason : DYSRHYTHMIA Blood Pressure : / mmHG Vent. Rate : 085 BPM Atrial Rate : 085 BPM P-R Int : 144 ms QRS Dur : 084 ms QT Int : 352 ms P-R-T Axes : 062 009 035 degrees QTc Int : 418 ms Normal sinus rhythm Normal ECG Confirmed by ANGELO CUNHA, CHRISTOPHER ([id number]), technical editor JULIÁN BROWN ([id number]) on 01/17/2021 9:00:05 AM Referred By: DEANN Confirmed By:CHRISTOPHER STEPHENS MD
--- NOTE | 2021-01-13 18:18 | EDS_ITS ---
HPI History of Present Illness Chief Complaint: Shortness of Breath Narrative Narrative: 60-year-old male with history of laryngeal spasms presenting after a laryngospasm. Patient apparently had a coughing fit and went into laryngeal spasm. It was reported that he turned blue was having difficulty breathing and went to the ground without head injury. Apparently bystander CPR is reported. The patient himself states initially that he remembers them gathered around him. He did not think he lost consciousness, however when I asked him if he remembered having CPR he states he cannot recall. Patient currently feels fine. He is having no difficulty breathing. He is talking in full sentences. He is denying chest pain or shortness of breath. Patient relates that he had a history of this for 2 years. He states that he is since seen by ENT who referred him to somebody else from [facility]. He states they did a bunch of blood work and they have not returned to results yet. He states he is not sure what they tested for. He is not sure what kind of physician this was. Patient states he most recently had a laryngeal spasm while getting a scope by Dr. Beauchamp. He said that was last time he had it. Patient currently has RSV which he caught from his family. He states this might be why he is coughing more. [facility] Medical History Alcohol use Arthritis Bilateral hearing loss DVT (deep venous thrombosis) Gastric reflux High cholesterol Hypothyroidism Smoker Wears glasses Home Medications tamsulosin 0.4 mg capsule 0.4 mg PO DAILY 11/02/20 [History Last Taken Unknown] omeprazole 40 mg capsule,delayed release 40 mg PO BID #120 cap 11/18/20 [Rx Last Taken 11/23/20] albuterol sulfate 90 mcg/actuation aerosol inhaler 2 puff INHALATION Q6H PRN #6.7 g 11/23/20 [Rx Last Taken Unknown] prednisone 10 mg tablet 15 mg PO DAILY tab 01/04/21 [History Last Taken Unknown] benzonatate 200 mg PO BID PRN PRN 01/13/21 [History Last Taken Unknown] levothyroxine [Synthroid] 150 mcg PO DAILY 01/13/21 [History Last Taken Unknown] Allergy/AdvReac Type Severity Reaction Status Date / Time No Known Allergies Allergy Verified 01/13/21 18:00 Family History Father COPD (chronic obstructive pulmonary disease) Emphysema lung Myocardial infarction Mother Parkinsons disease Surgical History H/O knee surgery H/O thyroidectomy Social History Smoking Status: Current every day smoker tobacco type: cigarettes Tobacco: How many years used: 45 ROS ROS ED Constitutional Constitutional ED: Denies chills or fever(s) Eyes Eyes: Denies blurry vision or diplopia ENT ENT ED: Denies rhinorrhea or sore throat Cardiovascular Cardiovascular: Denies chest pain or palpitations Respiratory/Chest Respiratory/Chest: Reports cough and dyspnea Gastrointestinal Gastrointestinal: Denies abdominal pain, nausea or vomiting Genitourinary Genitourinary ED: Denies dysuria or hematuria Musculoskeletal Musculoskeletal: Denies arthralgias, myalgias or neck pain Integumentary Denies abscess or rash Neurologic Neurologic: Denies headache(s) Psychiatric Psychiatric: Denies anxiety or depression EXAM Physical Exam Const Vital Signs: 01/13/21 18:00 01/13/21 18:02 01/13/21 18:08 Temperature 96.7 F L 96.7 F L Temperature Source Temporal Temporal Pulse Rate 98 80 Respiratory Rate 14 18 Respiratory Effort Normal Non-Labored Respiratory Depth Normal Respiratory Pattern Normal Blood Pressure 159/105 H 159/105 H Blood Pressure Mean 123 123 Pulse Ox 98 98 Oxygen Delivery Method Room Air Room Air Room Air 01/13/21 18:29 01/13/21 18:37 01/13/21 19:34 Temperature 98.1 F Temperature Source Temporal Pulse Rate 94 87 Respiratory Rate 16 16 Respiratory Effort Normal Respiratory Depth Normal Respiratory Pattern Normal Blood Pressure 141/93 H Blood Pressure Mean 109 Pulse Ox 98 95 99 Oxygen Delivery Method Room Air Room Air Room Air 01/13/21 20:20 01/13/21 21:12 Temperature 97.8 F Temperature Source Temporal Pulse Rate 84 84 Respiratory Rate 16 20 H Respiratory Effort Respiratory Depth Respiratory Pattern Blood Pressure 135/98 H 127/90 H Blood Pressure Mean 110 Pulse Ox 98 94 Oxygen Delivery Method Room Air Positive well nourished General Appearance ED: NAD; Negative for pallor HEENT Reports moist mucous membranes atraumatic Eyes PERRL and EOMs intact bilaterally Neck no lymphadenopathy, supple, no meningeal signs and no JVD Neck Narrative: No stridor Resp normal respiratory effort Auscultation: wheezes expiratory wheezes Cardio regular rhythm Extremity normal to inspection General Extremety ED: Negative for edema General Extremity: Negative for edema Neuro oriented x3, CN's II-XII intact bilaterally and no sensory deficits noted Sensorium / Orientation: alert Motor Exam: strength 5/5 throughout Psych mental status grossly normal Thought Process: normal thought process Skin General Skin Exam: Negative for jaundice or pallor MDM MDM MDM Narrative Medical decision making narrative: 60-year-old male presenting for evaluation after a laryngeal spasm which is a chronic disorder for him. He feels well at this time. On exam he was wheezing a little bit. He states he is on prednisone 15 mg p.o. daily for his laryngeal spasms. Since he is wheezing he was given Solu-Medrol and breathing treatments and on reevaluation his wheezing had improved. He felt improved as well. After speaking with his she did not do any significant CPR. EKG on my interpretation shows a normal sinus rhythm with a ventricular rate of 85 bpm without sign of ischemic change. Patient does not have any chest pain he does not have shortness of breath. His CBC and BMP are normal. High-sensitivity troponin is 25. Chest x-ray on my interpretation shows no acute cardiopulmonary process and the radiologist agree. Soft tissue x-ray of the neck was ordered as well and on my interpretation there are no acute findings. The radiologist agrees with this as well. Since the patient's lab work and imaging are normal and he feels improved I feel he safe to be discharged home. He still has prednisone at home. He states he takes 15 mg p.o. daily but he also states he has 20 mg tablets at home. I counseled him to take 40 mg for the next few days for the wheezing. He has an albuterol inhaler at home. His did ask if we could set him up for a nebulizer at home but I counseled them I could only do refills and not write for the nebulizer itself. The patient's did request that the write a prescription for the nebulizer solution to nursing staff. I did residential counselor the nursing staff that I would try to get to it quickly as his was wanting to leave. Prior to my getting the order and the patient and his had left. Impression: 1. Laryngeal spasm Lab Data Attestation: I reviewed the patient's lab results. Labs: Laboratory Results - last 24 hr 01/13/21 01/13/21 18:08 18:08 WBC 9.0 RBC 5.28 Hgb 16.9 H Hct 51.3 MCV 97.2 H MCH 32.0 MCHC 32.9 RDW Std Deviation 47.6 H RDW Coeff of Nick 13.3 Plt Count 214 MPV 10.7 Immature Gran % (Auto) 1.400 H Neut % (Auto) 76.7 H Lymph % (Auto) 16.3 L [place] % (Auto) 5.0 Eos % (Auto) 0.2 Baso % (Auto) 0.4 Absolute Neuts (auto) 6.9 Absolute Lymphs (auto) 1.47 Nucleated RBC % 0 Sodium 138 Potassium 4.2 Chloride 103 Carbon Dioxide 30.0 Anion Gap 5 BUN 13 Creatinine 1.13 Estim Creat Clear Calc 67.78 Est GFR (MDRD) Af Amer 84 Est GFR (MDRD) Non-Af 70 BUN/Creatinine Ratio 11.5 Glucose 138 H Calcium 9.3 Troponin I High Sens 25 Radiography Diagnostic Testing: Clinical Impression(s) from Imaging Studies Chest X-Ray 01/13/21 18:16 IMPRESSION: Nonacute portable x-ray examination of the chest. Electronically Signed: Fritz Wing MD (Brooks) at 20:09 EST , Service support , Soft Tissue Neck X-Ray 01/13/21 18:16 IMPRESSION: Normal x-ray soft tissue neck. Electronically Signed: Fritz Wing MD (Brooks) at 20:10 EST , Service support , Discharge Plan Triage Chief Complaint: Shortness of Breath ED Provider: Jayson Miramontes Dx/Rx/DC Orders Instructions: Vocal Cord Dysfunction (VCD), ED Bronchitis with Wheezing (Adult) Prescriptions: No Action tamsulosin 0.4 mg capsule 0.4 mg PO DAILY RF: 0 prednisone 10 mg tablet 15 mg PO DAILY RF: 0 benzonatate 200 mg capsule 200 mg PO BID PRN PRN (Reason: Cough) RF: 0 levothyroxine [Synthroid] 150 mcg tablet 150 mcg PO DAILY RF: 0 omeprazole 40 mg capsule,delayed release(DR/EC) 40 mg PO BID Qty: 120 RF: 0 albuterol sulfate 90 mcg/actuation HFA aerosol inhaler 2 puff inhalation Q6H PRN (Reason: shortness of breath or wheezing) Qty: 6.7 RF: 0 Primary Care Provider: Cisco Dozier Referrals: Cisco Dozier DO [Primary Care Provider] - Disposition Disposition: Home, Self Care Discharge Date/Time: 01/13/21 21:17
[2021-01-13] MEDS: MethylPREDNISolone 125 MG/2 ML Vial IV (18:27)
[2021-01-13 18:33] LABS: Absolute Lymphocyte Count 1.47 X10^3/uL (0.83-4.51); Absolute Neutrophil Count 6.9 X10^3/uL (2.0-7.7); Basophil# 0.04 X10^3/uL; Basophil% 0.4 % (0-1); Eosinophil# 0.02 X10^3/uL; Eosinophils% 0.2 % (0-5); Hematocrit 51.3 % (40-54); Hemoglobin 16.9 g/dL (13.0-16.5); Lymphocyte # 1.47 X10^3/ul (0.83-4.51); Lymphocyte % 16.3 % (19-41); Mean Corp Hgb Conc 32.9 g/dL (32-36); Mean Corpuscular Volume 97.2 fL (80-94); Mean Platelet Vol. 10.7 fl (6.2-12.0); Monocyte# 0.45 X10^3/uL; NRBC Flagged by Analyzer 0 % (0-5); Neutrophil # 6.89 X10^3/uL (2.7-7.7); Neutrophil % 76.7 % (47-70); Platelet Count 214 K/mm3 (150-450); RBC Distribution Width CV 13.3 % (11.6-14.6); RBC Distribution Width SD 47.6 fl (35.1-43.9); Red Blood Count 5.28 M/mm3 (4.6-6.2)
[2021-01-13] MEDS: Albuterol 2.5 MG/3 ML VIAL.NEB. INHALATION (18:37)
[2021-01-13] MEDS: Ipratropium/Albuterol Sulfate 3 ML AMPUL.NEB INHALATION (18:37)
[2021-01-13 18:52] LABS: Anion Gap 5 (5-15); BUN 13 mg/dL (7-18); BUN/Creat Ratio 11.5 RATIO (10-20); Calcium,Total 9.3 mg/dL (8.5-10.1); Chloride 103 mmol/L (98-107); Creatinine, Serum 1.13 mg/dL (0.70-1.30); EST Glomerular Filtration Rate 70 mL/min (>60); Est Glom Filt Rate - Afr Amer 84 mL/min (>60); Estimated Creatinine Clearance 67.78 ml/min; Glucose 138 mg/dL (74-106); Potassium 4.2 mmol/L (3.5-5.1); Sodium Level 138 mmol/L (136-145); Troponin-I HS 25 pg/mL (3.0-78.0)
--- NOTE | 2021-01-13 18:59 | CPS ---
x1 Albuterol given to pt. in ER as well
--- NOTE | 2021-01-13 21:14 | ED.RN ---
THIS NURSE REVIEWED D/C INSTRUCTIONS WITH PT AND . BOTH VERBALIZED UNDERSTANDING OF INSTRUCTIONS. IV D/C. IV CATHETER INTACT. PT TOLERATED WELL. AND PT REQUESTING A NEBULIZER WITH MEDICATION. THIS NURSE SPOKE WITH DR RODRIGUEZ. HE IS WILLING TO WRITE A PRESCRIPTION BUT IN THE MIDDLE OF ANOTHER PROCEDURE. THIS NURSE INFORMED THE PT AND THAT IT WOULD BE A LITTLE BIT DR RODRIGUEZ IS IN THE MIDDLE OF A PROCEDURE THEN HE WILL WRITE FOR IT. BOTH THE PT AND SAID NEVERMIND. BOTH REQUESTING TO JUST LEAVE. PT DENIES FURTHER NEEDS OR QUESTIONS AT THIS TIME. PT AMBULATES FROM ROOM ON OWN WITHOUT ASSISTANCE FROM STAFF
== END 2021-01-13 21:17 | disposition home or self-care (01) ==
PROVIDERS: Emergency Provider Student in an Organized Health Care Education/Training Program; PCP Family Medicine
DX: J38.5 Laryngeal spasm (principal); M19.90 Unspecified osteoarthritis, unspecified site; K21.9 Gastro-esophageal reflux disease without esophagitis; E03.9 Hypothyroidism, unspecified; F17.210 Nicotine dependence, cigarettes, uncomplicated; Z79.899 Other long term (current) drug therapy
CPT/HCPCS: 70360; 71045; 80048; 84484; 85025; 93005; 94640; 96374; 99251; 99285; A4216; G0463

== ENCOUNTER → 2021-02-06 08:09 | Outpatient (CLI) | payer OTHER, SELFPAY ==
--- NOTE | 2021-02-06 15:32 | PFTCOMP ---
COMPLETE PULMONARY FUNCTION TEST INTERPRETATION Brief HPI: Patient is a 60 year old male, currently under the care of myself, who presents to [facility] for complete pulmonary function tests secondary to diagnosis of dyspnea. Respiratory therapist reports good effort and reproducible results. Interpretation: Forced expiration spirometry shows no large airways obstructive ventilatory defect with an FEV1 of 71% predicted. There is no significant bronchodilator response by strict ATS criteria. Spirograms are of good quality and plateau slowly, indicating slowly emptying areas of the lungs. The respiratory flow volume loop shows decreased expiratory flow rates at high lung volumes consistent with small airways obstruction. Lung volumes by body plethysmography show a normal total lung capacity at 6.37 L, 100% predicted. All other lung volumes are within normal limits. Diffusion capacity by carbon monoxide is normal at 93% predicted. The airway resistance is elevated. No previous pulmonary function tests were available for review. Impression: Grossly normal pulmonary function test with some stigmata of small airways disease
== END ==
PROVIDERS: PCP Family Medicine; Referring Provider Internal Medicine Critical Care Medicine; Visit Provider Internal Medicine Critical Care Medicine
DX: R06.00 Dyspnea, unspecified (principal)
CPT/HCPCS: 94060; 94726; 94729

== ENCOUNTER → 2021-02-09 12:57 | Outpatient (CLI) | payer OTHER, SELFPAY ==
[2021-02-09 13:25] VITALS: PULSE 100; PULSE 101; PULSE 103; PULSE 82; PULSE 83; PULSE 99; O2SAT 97; O2SAT 98
--- NOTE | 2021-02-09 14:56 | PCM.PSN.6M ---
PSN 6 Minute Walk Test 6 Minute Walk Test 6 Minute Walk Test: 6 Minute Walk Test PSN:6-Minute Walk Test Start: 02/09/21 13:19 Freq: Status: Active Protocol: [id number] Document 02/09/21 13:25 FR (Rec: 02/09/21 13:28 FR [id number]) 6 Minute Walk Test Date Performed 02/09/21 Time Performed 13:00 Height 5 ft 9 in Weight: 90.718 kg Weight in Pounds 200.[address]: DR. SPENCER Assistive device used: None Pre-test Oxygen Delivery Method Room Air Pulse Ox (%) 98 Pulse Rate (60-100 beats/min) 82 Dyspnea Gianna Scale (0-10) 2 Exertion Gianna Scale (6-20) 7 1st minute Oxygen Delivery Method Room Air Pulse Ox (%) 98 Pulse Rate (60-100 beats/min) 100 2nd minute Oxygen Delivery Method Room Air Pulse Ox (%) 97 Pulse Rate (60-100 beats/min) 100 3rd minute Oxygen Delivery Method Room Air Pulse Ox (%) 97 Pulse Rate (60-100 beats/min) 100 4th minute Oxygen Delivery Method Room Air Pulse Ox (%) 98 Pulse Rate (60-100 beats/min) 101 H 5th minute Oxygen Delivery Method Room Air Pulse Ox (%) 98 Pulse Rate (60-100 beats/min) 103 H 6th minute Oxygen Delivery Method Room Air Pulse Ox (%) 98 Pulse Rate (60-100 beats/min) 99 Post-test Oxygen Delivery Method Room Air Pulse Ox (%) 98 Pulse Rate (60-100 beats/min) 83 Dyspnea Gianna Scale (0-10) 3 Exertion Gianna Scale (6-20) 8 Full Laps Walked 20 Partial Lap, Number of Tiles Walked 54 Total Distance Walked (ft) 1234 Interpretation Interpretation: The patient was able to ambulate 1234 feet over the course of 6 minutes on room air with no assistive devices or breaks. The patient experienced no significant desaturation, but did have tachycardia as high as 103 bpm. These findings are consistent with a cardiovascular limitation exercise tolerance. Recommendations Recommendations: No supplemental oxygen is indicated at this time.
== END ==
PROVIDERS: PCP Family Medicine; Referring Provider Internal Medicine Critical Care Medicine; Visit Provider Internal Medicine Critical Care Medicine
DX: R06.00 Dyspnea, unspecified (principal)
CPT/HCPCS: 94618

== ENCOUNTER → 2021-03-10 10:44 | Outpatient (CLI) | payer OTHER, SELFPAY | PROVIDERS: PCP Family Medicine | DX: R06.89 Other abnormalities of breathing (principal); J38.5 Laryngeal spasm | CPT/HCPCS: 36415; 83520 ==

== ENCOUNTER 2021-04-10 13:47 | Outpatient (CLI) | payer OTHER, SELFPAY ==
--- NOTE | 2021-04-10 13:53 | VDLE_ITS ---
Reason For Study: LLE UNPROVOKED PAIN RIGHT LEFT CFV is compressible, spontaneous, phasic, GSV is normal. competent and demonstrates normal CFV is compressible, spontaneous, phasic, augmentation. competent, and demonstrates normal Procedure augmentation. This is a venous duplex using B-mode, color FV is compressible, spontaneous, phasic, flow and spectral Doppler. competent and demonstrates normal Exam performed in department. augmentation. The exam was diagnostic. POP V is compressible, spontaneous, phasic, A preliminary report was called and/or faxed competent and demonstrates normal to Dr Dozier @ 2:15 pm @ [phone]. augmentation. T/P Trunk is compressible. PTV is compressible. LT PerV is compressible. VL/Venous Duplex US, Unilateral Interpretation Summary Deep veins of the left lower extremity are patent and compressible segmentally. There is no evidence of left lower extremity deep vein thrombosis. Valvular competence appears intac t within the proximal deep venous system on the left . The left great saphenous vein appears patent a nd compressible segmentally. Ordering Physician: Cisco Dozier Referring Physician: Cisco Dozier Performed By: Marcelina Mackey, SHANNEN, RVT
== END 2021-04-10 23:59 | disposition home or self-care (01) ==
LOC: CVS 13:49
PROVIDERS: PCP Family Medicine; Visit Provider Family Medicine
DX: M79.605 Pain in left leg (principal)
CPT/HCPCS: 93971

== ENCOUNTER → 2021-09-05 | Outpatient (CLI) | payer OTHER, SELFPAY ==
--- NOTE | 2021-09-05 09:59 | US_ITS ---
STUDY: ABDOMINAL ULTRASOUND REASON FOR EXAM: Male, 61 years old. Post prandial right upper quadrant pain. TECHNIQUE: Transabdominal ultrasound was performed with real-time and static marquez scale imaging. TECHNICAL QUALITY: Adequate. COMPARISON: None. FINDINGS: Liver: The liver measures 16.9 cm. There is increased echogenicity consistent with fatty infiltration. The bile ducts are within normal limits. There is hepatic color flow. The direction of portal flow is hepatopetal. There is no demonstrated mass lesion. Gallbladder: Normal distended gallbladder. The gallbladder wall measures 2 mm. There is a negative sonographic Addison''s sign. There is no pericholecystic fluid. There are no gallstones. There is a 3 mm x 3 mm x 3 mm gallbladder polyp. Common Bile Duct (C.B.D.): The common bile duct measures 2 mm. Pancreas: Normal size of the head, body and tail of the pancreas. There is increased echogenicity of the pancreas. There is no demonstrated pancreatic mass or cyst. Spleen: Normal size of the spleen. The spleen measures 11.1 cm x 4.2 cm x 4.5 cm. Right Kidney: Normal size of the right kidney. The right kidney measures 11.5 cm x 5.4 cm x 6 cm. Normal renal cortex. The right cortex measures 1.5 cm. There is a 3.3 cm x 2.7 cm x 4.4 cm renal cyst. There is no right hydronephrosis. Left Kidney: Normal size of the left kidney. The left kidney measures 10.3 cm x 5.2 cm x 5.7 cm. Normal renal cortex. The left cortex measures 1.5 cm. There is no demonstrated renal mass or cyst. There is no left hydronephrosis. Aorta: Unremarkable I.V.C.: The IVC is patent. There is no ascites. US/Abdomen Complete IMPRESSION: Borderline enlargement of the liver with fatty infiltration. Small gallbladder polyp. Small right renal cyst. Electronically Signed: Akshat Pinto MD at 12:28 EDT ,
== END | disposition home or self-care (01) ==
LOC: US 09:53
PROVIDERS: PCP Family Medicine; Referring Provider Family Medicine; Visit Provider Family Medicine
DX: R10.11 Right upper quadrant pain (principal)
CPT/HCPCS: 76700

== ENCOUNTER → 2021-09-18 | Outpatient (CLI) | payer OTHER, SELFPAY ==
--- NOTE | 2021-09-18 18:45 | CT_ITS ---
STUDY: CT Abdomen And Pelvis W/O Contrast Injection 09/18/2021 8:07 PM REASON FOR EXAM: Male, 61 years old. Technologist Notes ABD PAIN X MONTHS, WORSE AFTER EATING ABDOMINAL PAIN TECHNIQUE: Transaxial images were obtained without oral contrast, and without intravenous contrast. Individualized dose optimization techniques were used for this CT. COMPARISON: None. FINDINGS: There are atherosclerotic calcifications of visualized coronary arteries. The visualized portions of the heart are within normal limits. Unremarkable liver. The gallbladder is contracted. Unremarkable spleen. Unremarkable pancreas. Unremarkable bilateral adrenal glands. There are hypodensities in the right kidney. These are consistent for cysts. No follow up required. No acute findings of the left kidney. Retroaortic left renal vein. Unremarkable visualized stomach. Unremarkable small intestine. There are multiple colonic diverticula consistent with diverticulosis. The appendix is visualized and appears unremarkable. There is moderate diffuse narrowing. Unremarkable inferior vena cava. Subcentimeter mesenteric lymph nodes. Unremarkable urinary bladder. There are prostatic calcifications. There is an umbilical hernia containing fat. There are diffuse degenerative changes of the visualized lumbar spine. CT/Abdomen/Pelvis without Cont IMPRESSION: (NOT LISTED IN ORDER OF SIGNIFICANCE) There are multiple colonic diverticula consistent with diverticulosis. Other findings as above. Electronically Signed: Joseluis Solorzano MD at 20:09 EDT ,
== END | disposition home or self-care (01) ==
LOC: CT 18:43
PROVIDERS: PCP Family Medicine; Visit Provider Family Medicine
DX: R10.11 Right upper quadrant pain (principal)
CPT/HCPCS: 74176

== ENCOUNTER 2022-01-24 08:56 | Emergency (ER) | payer OTHER, SELFPAY ==
[2022-01-24] VITALS (8 sets, daily range): BP systolic 89–108; BP diastolic 62–75; PULSE 74–90; RESP 17–24; TEMP 37.2; O2SAT 95–98; BMI 33.1
--- NOTE | 2022-01-24 09:15 | EKG12_ITS ---
Test Reason : SOB Blood Pressure : / mmHG Vent. Rate : 088 BPM Atrial Rate : 088 BPM P-R Int : 118 ms QRS Dur : 092 ms QT Int : 358 ms P-R-T Axes : -03 017 023 degrees QTc Int : 433 ms Sinus rhythm with frequent Premature ventricular complexes Otherwise normal ECG Confirmed by KEYSHA CUNHA, SON ([id number]), editor dictionary JULIÁN BROWN ([id number]) on 01/26/2022 10:27:27 A M Referred By: SALO Confirmed By:LAUREN CHOPRA MD
[2022-01-24] MEDS: Ipratropium/Albuterol Sulfate 3 ML AMPUL.NEB INHALATION (09:23)
[2022-01-24] MEDS: predniSONE 20 MG Tablet 60 MG PO (09:26)
--- NOTE | 2022-01-24 09:30 | RAD_ITS ---
STUDY: X-RAY CHEST REASON FOR EXAM: Male, 61 years old. Increasing shortness of breath. TECHNIQUE: Single AP portable view of the chest. COMPARISON: Comparison is made with prior study of 01/13/2021. FINDINGS: EKG electrodes are seen. Mild increased markings are seen in the right mid lung as well as at the left lung base. Early infiltrate should be ruled out. There is no demonstrated pleural abnormality. Normal size heart. Normal mediastinum and marv. Normal visualized pulmonary arteries. Normal visualized aortic arch and descending thoracic aorta. Normal visualized thoracic spine. Normal visualized ribs, clavicles, and shoulders. There is no demonstrated abnormality of the visualized soft tissue structures of the upper abdomen. RAD/Chest 1 View (Portable) IMPRESSION: Mild increased markings are seen in the right midlung and in the left lower lobe. Early infiltrates should be ruled out. Electronically Signed: Akshat Pinto MD at 10:04 [facility] ,
[2022-01-24 09:42] LABS: Absolute Lymphocyte Count 0.58 X10^3/uL (0.83-4.51); Absolute Neutrophil Count 7.8 X10^3/uL (2.0-7.7); Basophil# 0.02 X10^3/uL; Basophil% 0.2 % (0-1); Eosinophil# 0.01 X10^3/uL; Eosinophils% 0.1 % (0-5); Hematocrit 44.1 % (40-54); Hemoglobin 14.3 g/dL (13.0-16.5); Lymphocyte # 0.58 X10^3/ul (0.83-4.51); Lymphocyte % 6.5 % (19-41); Mean Corp Hgb Conc 32.4 g/dL (32-36); Mean Corpuscular Hgb 30.3 pg (27.0-32.0); Mean Corpuscular Volume 93.4 fL (80-94); Mean Platelet Vol. 11.1 fl (6.2-12.0); Monocyte# 0.51 X10^3/uL; Monocyte% 5.7 % (0-10); NRBC Flagged by Analyzer 0 % (0-5); Neutrophil # 7.78 X10^3/uL (2.7-7.7); Neutrophil % 87.2 % (47-70); POSITIVE DIFFERENTIAL YES; Platelet Count 171 K/mm3 (150-450); RBC Distribution Width CV 13.3 % (11.6-14.6); RBC Distribution Width SD 45.9 fl (35.1-43.9); Red Blood Count 4.72 M/mm3 (4.6-6.2); White Blood Count 8.9 K/mm3 (4.4-11.0)
[2022-01-24 09:44] LABS: Differential Indicated SCAN CRITERIA MET
[2022-01-24 09:47] LABS: Anion Gap 6 (5-15); BUN 15 mg/dL (7-18); BUN/Creat Ratio 11.3 RATIO (10-20); Calcium,Total 9.3 mg/dL (8.5-10.1); Chloride 102 mmol/L (98-107); Creatinine, Serum 1.33 mg/dL (0.70-1.30); EST Glomerular Filtration Rate 58 mL/min (>60); Est Glom Filt Rate - Afr Amer 70 mL/min (>60); Estimated Creatinine Clearance 56.85 ml/min; Glucose 123 mg/dL (74-106); Potassium 3.9 mmol/L (3.5-5.1); Sodium Level 137 mmol/L (136-145)
[2022-01-24 10:03] LABS: BNP,B-Type NATRIURETIC PEPTIDE 110.9 pg/mL (0-100)
[2022-01-24 10:20] LABS: Differential Comment SCANNED
--- NOTE | 2022-01-24 10:22 | ED.VIS.DYS ---
HPI History of Present Illness Chief Complaint: Shortness of Breath Narrative Narrative: 61 year old male presents with his because of increasing shortness of breath. He states his symptoms began last evening. He also states that there is a viral infection going to his house. He denies any fevers but may have had chills. He has a cough that is sometimes productive. Has had increasing shortness of breath. His states that he recently was diagnosed with asthma and may have history of CHF, on Lasix. He denies any chest pain but states that he has been having problems breathing. He last used an aerosolized treatment this morning at 5 AM. He is not currently taking steroids. [facility] Medical History Alcohol use Arthritis Bilateral hearing loss DVT (deep venous thrombosis) Gastric reflux High cholesterol Hypothyroidism Smoker Wears glasses Home Medications tamsulosin 0.4 mg capsule 0.4 mg PO DAILY 11/02/20 [History Last Taken Unknown] omeprazole 40 mg capsule,delayed release 40 mg PO BID #120 caps 11/18/20 [Rx Last Taken 11/23/20] albuterol sulfate 90 mcg/actuation aerosol inhaler 2 puff inhalation Q6H PRN shortness of breath or wheezing #6.7 grams 11/23/20 [Rx Last Taken Unknown] levothyroxine 150 mcg tablet (Synthroid) 150 mcg PO DAILY 01/13/21 [History Last Taken Unknown] aspirin 81 mg chewable tablet (Luis Alberto Chewable Low Dose Aspirin) 81 mg PO DAILY 01/24/22 [History Last Taken Unknown] clopidogrel 75 mg tablet 75 mg PO DAILY 01/24/22 [History Last Taken Unknown] ezetimibe 10 mg tablet 10 mg PO DAILY 01/24/22 [History Last Taken Unknown] furosemide 40 mg tablet 40 mg PO DAILY 01/24/22 [History Last Taken Unknown] isosorbide mononitrate 60 mg tablet,extended release 24 hr 60 mg PO DAILY 01/24/22 [History Last Taken Unknown] levofloxacin 750 mg tablet 750 mg PO DAILY #7 tabs 01/24/22 [Rx Last Taken Unknown] metoprolol succinate 25 mg tablet,extended release 24 hr 12.5 mg PO DAILY 01/24/22 [History Last Taken Unknown] prednisone 20 mg tablet 40 mg PO DAILY #10 tabs 01/24/22 [Rx Last Taken Unknown] rosuvastatin 5 mg tablet 5 mg PO DAILY 01/24/22 [History Last Taken Unknown] Allergy/AdvReac Type Severity Reaction Status Date / Time vibegron [From Prakasha] Allergy Rash Verified 01/24/22 08:57 Family History Father COPD (chronic obstructive pulmonary disease) Emphysema lung Myocardial infarction Mother Parkinsons disease Surgical History H/O knee surgery H/O thyroidectomy Social History Smoking Status: Former smoker Tobacco: How many years used: 45 ROS ROS ED ROS Narrative Constitutional: No fever, occasional chills. HEENT: No sore throat. No neck pain. No loss of vision. No rhinorrhea. Cardiovascular: No chest pain. No palpitations. No pedal edema. Respiratory: Poss cough, positive shortness of breath. Abdominal: No abdominal pain. No nausea. No vomiting. Genitourinary: No dysuria. No hematuria. Musculoskeletal: No myalgias. No arthralgias. Neurologic: No headaches. No dizziness. No lightheadedness. Skin: No rash. No change in color. Psychiatric: No depression. No anxiety. EXAM Physical Exam Narrative Exam Narrative: Afebrile. Vital signs noted. HEENT: Normocephalic. Atraumatic. PERRL, EOMI. Neck soft and supple. No point tenderness or step off. Cardiovascular: Regular rate and rhythm. No murmurs, rubs, or gallops appreciated. Respiratory: Intermittent tachypnea. Positive expiratory wheezing bilaterally. Decreased breath sounds bilateral bases. Gastrointestinal: Abdomen soft, nontender, with normoactive bowel sounds. No rebound or guarding. Neurological: Awake. Alert. Nonfocal, nonlateralizing. Skin: No rash. Normal color. No pallor. Musculoskeletal: No pedal edema. Full range of motion extremities. Const Vital Signs: 01/24/22 08:58 01/24/22 09:01 01/24/22 09:15 Temperature 98.9 F 98.9 F Temperature Source Temporal Temporal Pulse Rate 87 87 Respiratory Rate 17 17 Respiratory Effort Short of Breath Respiratory Depth Shallow Respiratory Pattern Tachypnea Blood Pressure 108/75 108/75 Blood Pressure Mean 86 86 Pulse Ox 97 97 Oxygen Delivery Method Room Air Room Air Room Air 01/24/22 09:23 01/24/22 10:56 01/24/22 11:20 Temperature Temperature Source Pulse Rate 90 74 Respiratory Rate 22 H 24 H 22 H Respiratory Effort Respiratory Depth Respiratory Pattern Tachypnea Blood Pressure 89/62 L Blood Pressure Mean 71 Pulse Ox 96 Oxygen Delivery Method Room Air MDM MDM MDM Narrative Medical decision making narrative: Comprehensive work-up was pursued. Patient was given prednisone 60 mg orally. CBC demonstrates normal white count of 8.9, hemoglobin normal at 14.3, platelet count normal at 171. Creatinine slightly elevated at 1.33 with a normal BUN of 15. BNP is only slightly elevated at 110. Chest x-ray interpreted by myself shows mild increased markings in the mid right lung and in left lower lobe. These could be early infiltrates. Upon repeat examination, he is mildly improved. EKG interpreted by myself demonstrates normal sinus rhythm at 88 bpm with frequent PVCs but no acute ST changes. No STEMI. He was ambulated on a pulse ox, and never dipped below 95% on room air. I do feel that given the possibility of pneumonia exacerbating his COPD, that he can be discharged with a prescription for Levaquin, and for steroid burst for 5 days. He will follow-up with his devulcanizer operator at [facility]. Return instructions to the emergency department were reviewed. Disposition is discharged home in stable condition. Lab Data Attestation: I reviewed the patient's lab results. Labs: Laboratory Results - last 24 hr 01/24/22 01/24/22 01/24/22 09:25 09:25 09:25 WBC 8.9 RBC 4.72 Hgb 14.3 Hct 44.1 MCV 93.4 MCH 30.3 MCHC 32.4 RDW Std Deviation 45.9 H RDW Coeff of Nick 13.3 Plt Count 171 MPV 11.1 Immature Gran % (Auto) 0.300 Neut % (Auto) 87.2 H Lymph % (Auto) 6.5 L Runnels % (Auto) 5.7 Eos % (Auto) 0.1 Baso % (Auto) 0.2 Absolute Neuts (auto) 7.8 H Absolute Lymphs (auto) 0.58 L Nucleated RBC % 0 Differential Comment SCANNED Sodium 137 Potassium 3.9 Chloride 102 Carbon Dioxide 29.0 Anion Gap 6 BUN 15 Creatinine 1.33 H Estim Creat Clear Calc 56.85 Est GFR (MDRD) Af Amer 70 Est GFR (MDRD) Non-Af 58 L BUN/Creatinine Ratio 11.3 Glucose 123 H Calcium 9.3 B-Natriuretic Peptide 110.9 H Radiography Diagnostic Testing: Clinical Impression(s) from Imaging Studies Chest X-Ray 01/24/22 09:30 IMPRESSION: Mild increased markings are seen in the right midlung and in the left lower lobe. Early infiltrates should be ruled out. Electronically Signed: Akshat Pinto MD at 10:04 EST , Discharge Plan Triage Chief Complaint: Shortness of Breath ED Provider: Vega Vera Dx/Rx/DC Orders Clinical Impression: Dyspnea, Pneumonia, COPD exacerbation Instructions: ED COPD Flare, ED Pneumonia (Adult) Prescriptions: New levofloxacin 750 mg tablet 750 mg PO DAILY Qty: 7 0RF prednisone 20 mg tablet 40 mg PO DAILY Qty: 10 0RF No Action tamsulosin 0.4 mg capsule 0.4 mg PO DAILY levothyroxine [Synthroid] 150 mcg tablet 150 mcg PO DAILY furosemide 40 mg tablet 40 mg PO DAILY clopidogrel 75 mg tablet 75 mg PO DAILY isosorbide mononitrate 60 mg tablet extended release 24 hr 60 mg PO DAILY aspirin [Luis Alberto Chewable Aspirin] 81 mg tablet,chewable 81 mg PO DAILY Label Comments: 1 tablet by mouth once a day metoprolol succinate 25 mg tablet extended release 24 hr 12.5 mg PO DAILY ezetimibe 10 mg tablet 10 mg PO DAILY rosuvastatin 5 mg tablet 5 mg PO DAILY omeprazole 40 mg capsule,delayed release(DR/EC) 40 mg PO BID Qty: 120 0RF Rx Instructions: Take one cap by mouth two times a day for eight weeks. Then will taper. albuterol sulfate 90 mcg/actuation HFA aerosol inhaler 2 puff inhalation Q6H PRN (Reason: shortness of breath or wheezing) Qty: 6.7 0RF Primary Care Provider: Cisco Dozier Referrals: Cisco Dozier, [Primary Care Provider] - 1-2 Days if not improving Activity Restrictions/Additional Instructions: Follow-up with your devulcanizer operator at [facility] as soon as possible. Disposition Disposition: Home, Self Care Discharge Date/Time: 01/24/22 11:20
[2022-01-24] MEDS: levoFLOXacin 750 MG Tablet PO (11:01)
== END 2022-01-24 11:20 | disposition home or self-care (01) ==
PROVIDERS: Emergency Provider Emergency Medicine; PCP Family Medicine; Visit Provider Emergency Medicine
DX: J18.9 Pneumonia, unspecified organism (principal); J44.1 Chronic obstructive pulmonary disease with (acute) exacerbation; I49.3 Ventricular premature depolarization; Z87.891 Personal history of nicotine dependence; E78.00 Pure hypercholesterolemia, unspecified; R06.02 Shortness of breath; Z79.82 Long term (current) use of aspirin; Z79.52 Long term (current) use of systemic steroids; Z79.899 Other long term (current) drug therapy
CPT/HCPCS: 71045; 80048; 83880; 85025; 87428; 87807; 93005; 94640; 99285; A4216

== ENCOUNTER → 2022-02-22 | Outpatient (CLI) | payer OTHER, SELFPAY ==
[2022-02-22 10:50] LABS: PSA,Total- Diagnostic 0.42 ng/mL (0.0-4.0)
== END | disposition home or self-care (01) ==
LOC: LAB 09:47
PROVIDERS: PCP Family Medicine; Referring Provider Urology; Visit Provider Urology
DX: R35.1 Nocturia (principal)
CPT/HCPCS: 36415; 84153

== ENCOUNTER → 2022-04-11 | Outpatient (CLI) | payer OTHER, SELFPAY ==
[2022-04-11 11:47] LABS: BNP,B-Type NATRIURETIC PEPTIDE 62.4 pg/mL (0-100)
[2022-04-11 11:52] LABS: Anion Gap 6 (5-15); BUN 25 mg/dL (7-18); BUN/Creat Ratio 16.6 RATIO (10-20); Calcium,Total 9.5 mg/dL (8.5-10.1); Chloride 107 mmol/L (98-107); Creatinine, Serum 1.51 mg/dL (0.70-1.30); EST Glomerular Filtration Rate 50 mL/min (>60); Est Glom Filt Rate - Afr Amer 60 mL/min (>60); Glucose 110 mg/dL (74-106); Potassium 4.4 mmol/L (3.5-5.1); Sodium Level 142 mmol/L (136-145)
== END | disposition home or self-care (01) ==
LOC: LAB 10:39
PROVIDERS: PCP Family Medicine
DX: I25.10 Atherosclerotic heart disease of native coronary artery without angina pectoris (principal); I10 Essential (primary) hypertension; R06.02 Shortness of breath; Z95.5 Presence of coronary angioplasty implant and graft; R79.89 Other specified abnormal findings of blood chemistry
CPT/HCPCS: 36415; 80048; 83880

== ENCOUNTER → 2022-05-02 | Outpatient (CLI) | payer OTHER, SELFPAY ==
[2022-05-02 12:49] LABS: PTHIN 59.8 pg/mL (18.4-80.1)
[2022-05-02 12:50] LABS: Vitamin B12 391 pg/mL (211-911)
[2022-05-02 13:01] LABS: Anion Gap 7 (5-15); BUN 19 mg/dL (7-18); BUN/Creat Ratio 14.1 RATIO (10-20); CPK Total, Creatine Kinase 131 U/L (39-308); Calcium,Total 9.5 mg/dL (8.5-10.1); Chloride 102 mmol/L (98-107); Creatinine, Serum 1.35 mg/dL (0.70-1.30); EST Glomerular Filtration Rate 57 mL/min (>60); Est Glom Filt Rate - Afr Amer 68 mL/min (>60); Glucose 88 mg/dL (74-106); Potassium 4.3 mmol/L (3.5-5.1); Sodium Level 139 mmol/L (136-145)
[2022-05-04 13:35] LABS: ANTINUCLEAR ANTIBODIES DIRECT Negative (Negative); Arsenic 7245 3 ug/L (0-9); Lead, Blood 1.2 ug/dL (0.0-3.4); Mercury, Blood 85324 < 1.0 ug/L (0.0-14.9)
[2022-05-04 15:09] LABS: PROELU- Albumin, Urine 23.3 % (.); PROELU- Alpha-1-Globulin,Ur 2.8 % (.); PROELU- Alpha-2-Globulin,Ur 11.1 % (.); PROELU- Beta Globulin, Ur 34.1 % (.); PROELU- Gamma Globulin, Ur 28.7 % (.); Total Protein, Ur 13.4 mg/dL (Not Estab.)
== END | disposition home or self-care (01) ==
PROVIDERS: PCP Family Medicine; Referring Provider Family Medicine; Visit Provider Family Medicine
DX: K08.89 Other specified disorders of teeth and supporting structures (principal); M62.81 Muscle weakness (generalized); R26.9 Unspecified abnormalities of gait and mobility; R06.02 Shortness of breath; E83.52 Hypercalcemia; Z77.29 Contact with and (suspected) exposure to other hazardous substances; I25.10 Atherosclerotic heart disease of native coronary artery without angina pectoris; I10 Essential (primary) hypertension
CPT/HCPCS: 36415; 80048; 82550; 82607; 83970; 84166; 86038; 86225; 86235

== ENCOUNTER → 2022-05-21 | Outpatient (CLI) | payer OTHER, SELFPAY ==
--- NOTE | 2022-05-21 10:20 | NEURO_ITS ---
NCS and/or EMG Patient Report Ordering Doctor: Cisco Dozier DATE OF SERVICE: 05/21/22 Indication: Approximately 2 years of diffuse muscle pain and stiffness. Symptoms make activity difficult. No associated madeline muscles weakness, fasciculations, or atrophy. No radicular pain. Of note, the patient has a history of COPD. He has found that his muscle symptoms largely resolve when he takes steroids for his breathing. Findings: Nerve conduction studies were performed in the right upper and lower extremity. The right median motor study recording the abductor pollicis brevis showed a normal amplitude, prolonged distal latency and slowed normal conduction velocity. No conduction block or temporal dispersion was present between the wrist and antecubital fossa. The right ulnar motor study recording the abductor digiti minimi showed a normal amplitude, normal distal latency and normal forearm conduction velocity. No conduction block or temporal dispersion was present between the wrist and below-elbow sites. No conduction block or focal slowing was present across the elbow. The right median-ulnar lumbrical / interosseous motor latencies showed a prolonged median latency compared to the ulnar. The right median sensory response recording digit two showed a relatively reduced amplitude, prolonged latency and slowed conduction velocity. The right ulnar sensory response recording digit five showed a normal amplitude, latency and conduction velocity. The right radial sensory response recording over the extensor snuff box showed a normal amplitude, latency and conduction velocity. The right peroneal motor study recording the extensor digitorum brevis showed a normal amplitude, normal distal latency and normal conduction velocity in the leg. No conduction block or temporal dispersion was present between the ankle and below fibular neck sites. No conduction block or focal slowing was present a cross the fibular neck. The right tibial motor study recording the abductor hallucis brevis showed a normal amplitude, normal distal latency and normal conduction velocity. No conduction block or temporal dispersion was present between the ankle and popliteal fossa. Right sural sensory response showed a normal amplitude and conduction velocity. Right superficial peroneal sensory response showed a normal amplitude and conduction velocity. Needle EMG of the right upper extremity was performed. No denervation was present in any muscle. No fasciculations were present in any muscle. Motor unit morphology, activation, and recruitment patterns were normal. Needle EMG of the right lower extremity was performed. No denervation was present in any muscle. No fasciculations were present in any muscle. Motor unit morphology, activation, and recruitment patterns were normal. Given the lack of findings above and the fact that the patient is on dual- antiplatelet therapy, needle EMG of the left extremities, paraspinals and craniobulbar muscles were not sample. Impression: This is an essentially normal study. There is no electrophysiologic evidence of motor neuron disease. In addition, there was no electrophysiologic evidence of myopathy, motor neuropathy or radiculopathy in the right extremities. There was an incidental finding of a mild median neuropathy across the right wrist. Bobby Shetty D.O. Multi Select Codes Neurology Neurology Interp Codes: 30303-99 [facility] [place] test comp (interp) (Qty:2) and 50035-24 [facility] cnd test 11-12 studies (interp)
== END | disposition home or self-care (01) ==
LOC: PSN 08:11
PROVIDERS: PCP Family Medicine; Visit Provider Family Medicine
DX: M62.81 Muscle weakness (generalized) (principal); R26.9 Unspecified abnormalities of gait and mobility
CPT/HCPCS: 95886; 95912

== ENCOUNTER → 2022-06-19 | Outpatient (CLI) | payer OTHER, SELFPAY ==
[2022-06-19 07:23] LABS: Hematocrit 46.3 % (40-54); Hemoglobin 14.9 g/dL (13.0-16.5); Mean Corp Hgb Conc 32.2 g/dL (32-36); Mean Corpuscular Hgb 30.5 pg (27.0-32.0); Mean Corpuscular Volume 94.9 fL (80-94); Mean Platelet Vol. 11.7 fl (6.2-12.0); Platelet Count 185 K/mm3 (150-450); RBC Distribution Width SD 45.1 fl (35.1-43.9); Red Blood Count 4.88 M/mm3 (4.6-6.2); White Blood Count 8.1 K/mm3 (4.4-11.0)
[2022-06-19 08:07] LABS: AST(SGOT) 19 U/L (15-37); Alanine Aminotransfer ALT/SGPT 27 U/L (16-61); Albumin, Serum 3.8 g/dL (3.2-5.0); Alkaline Phosphatase 97 U/L (45-117); Anion Gap 2 (5-15); BUN 21 mg/dL (7-18); BUN/Creat Ratio 16.3 RATIO (10-20); Calcium,Total 9.2 mg/dL (8.5-10.1); Chloride 107 mmol/L (98-107); Creatinine, Serum 1.29 mg/dL (0.70-1.30); EST Glomerular Filtration Rate 60 mL/min (>60); Est Glom Filt Rate - Afr Amer 72 mL/min (>60); Free T3 2.8 pg/mL (2.18-3.98); Globulin 3.9 g/dL (2.2-4.2); Glucose 119 mg/dL (74-106); Magnesium 2.5 mg/dL (1.6-2.6); Potassium 4.1 mmol/L (3.5-5.1); Protein, Total 7.7 g/dL (6.4-8.2); Sodium Level 140 mmol/L (136-145); T4 Free Direct 1.23 ng/dL (0.76-1.46); Thyroid Stim Hormone (TSH) 0.69 uIU/mL (0.358-3.74)
[2022-06-21 22:07] LABS: Vitamin B1, Thiamine 186.2 nmol/L (66.5-200.0)
== END | disposition home or self-care (01) ==
LOC: LAB 06:46
PROVIDERS: PCP Family Medicine; Referring Provider Psychiatry & Neurology Neurology; Visit Provider Psychiatry & Neurology Neurology
DX: I10 Essential (primary) hypertension (principal); I25.10 Atherosclerotic heart disease of native coronary artery without angina pectoris
CPT/HCPCS: 36415; 80053; 82746; 83735; 84425; 84439; 84443; 84481; 85027

== ENCOUNTER → 2022-06-28 | Outpatient (CLI) | payer OTHER, SELFPAY | END | disposition home or self-care (01) | PROVIDERS: PCP Family Medicine; Referring Provider Psychiatry & Neurology Neurology; Visit Provider Psychiatry & Neurology Neurology | DX: G47.10 Hypersomnia, unspecified (principal); G47.50 Parasomnia, unspecified | CPT/HCPCS: 95810 ==

== ENCOUNTER → 2022-07-03 | Outpatient (CLI) | payer OTHER, SELFPAY ==
--- NOTE | 2022-07-03 17:40 | MRI_ITS ---
INDICATION: parkinson''s disease, mild cognitive impairment EXAMINATION: MRI - MR Brain WO/W Contrast TECHNIQUE: Multiplanar and multisequence MR images of the brain were obtained without and with gadolinium. IV Contrast Dosage and Agent: None. COMPARISON: 11/15/2020. FINDINGS: BRAIN PARENCHYMA: No MRI evidence of hemorrhage. No evidence of acute infarct. No intracranial mass or mass effect. Mild chronic microvascular ischemic changes in the periventricular white matter. Normal sella turcica, pituitary gland, infundibular stalk, optic chiasm and hypothalamus. Posterior fossa structures are unremarkable. INTERNAL AUDITORY CANALS: The internal auditory canals are well visualized and patent. No mass identified. CSF SPACES: Appropriate for age. No hydrocephalus. Basal cisterns are patent. VASCULAR SYSTEM: Chronic occlusion of the right ICA. There has been no significant change since 11/15/2020. CALVARIUM, SKULL BASE, PARANASAL SINUSES AND MASTOID AIR CELLS: Clear. No expansile changes. ORBITS: Both globes, extraocular muscles, optic nerves and retrobulbar fat appear unremarkable. MRI/Brain W/WO Contrast IMPRESSION: Chronic occlusion of the right ICA. There has been no significant change since 11/15/2020. Mild chronic microvascular ischemic changes in the periventricular white matter. Electronically Signed: Daniel Edwards MD at 6:20 EDT ,
== END | disposition home or self-care (01) ==
LOC: MRI 17:38
PROVIDERS: PCP Family Medicine; Referring Provider Psychiatry & Neurology Neurology; Visit Provider Psychiatry & Neurology Neurology
DX: G47.33 Obstructive sleep apnea (adult) (pediatric) (principal)
CPT/HCPCS: 70553; A9575

== ENCOUNTER → 2022-08-23 | Outpatient (CLI) | payer OTHER, SELFPAY ==
--- NOTE | 2022-08-24 11:33 | PFTCOMP ---
Complete pulmonary function test report Patient Mauro Cole Date of study August 23, 2022 Referring physicians: Drs. Cisco Dozier and Dr. German Nayak Indication: Unspecified asthma Spirometry pre and postbronchodilator showed: 1. Unreliable results. 2. My review of the flow-volume loop and volume-time curve showed inconsistent and variable effort which did not meet standards of acceptability and reproducibility. Clinical and radiographic correlation is recommended, this patient may not be a good candidate for a methacholine challenge test for further evaluation of asthma, due to his inability to perform a technically adequate spirometry. Lung volume studies by plethysmography show: 1. Mild restriction, suggested by a total lung capacity 76% predicted, vital capacity 69% predicted, functional residual capacity of 69%, RV/TLC of 94%, RV of 74%. 2. No evidence of hyperinflation DLCO by single breath carbon monoxide technique 1. DLCO of 81% predicted and DL/VA of 160%. Gas exchange was normal. Jasson Deng MD [facility] Pulmonary Medicine [facility] August 24, 2022 11:43 AM
== END | disposition home or self-care (01) ==
LOC: PSN 12:18
PROVIDERS: PCP Family Medicine; Referring Provider Internal Medicine Critical Care Medicine; Visit Provider Internal Medicine Critical Care Medicine
DX: J45.909 Unspecified asthma, uncomplicated (principal)
CPT/HCPCS: 94060; 94726; 94729

== ENCOUNTER → 2022-08-30 | Outpatient (CLI) | payer OTHER, SELFPAY ==
[2022-08-30 13:18] VITALS: PULSE 67; PULSE 71; PULSE 83; PULSE 87; PULSE 91; PULSE 93; O2SAT 95; O2SAT 96; O2SAT 97
--- NOTE | 2022-08-31 09:43 | WT_ITS ---
PSN 6 Minute Walk Test 6 Minute Walk Test 6 Minute Walk Test: 6 Minute Walk Test PSN:6-Minute Walk Test Start: 08/30/22 13:18 Freq: Status: Active Protocol: RESP.[id number] Document 08/30/22 13:18 [facility] (Rec: 08/30/22 13:21 [facility] [id number]) 6 Minute Walk Test Date Performed 08/30/22 Time Performed 13:00 Height 5 ft 9 in Weight: 215 lb Weight in Pounds 215.[address]: German Nayak Assistive device used: None Pre-test Oxygen Delivery Method Room Air Pulse Ox 97 Pulse Rate (60-100) 67 Dyspnea Gianna Scale (0-10) 1 1st minute Oxygen Delivery Method Room Air Pulse Ox 96 Pulse Rate (60-100) 71 Dyspnea Gianna Scale (0-10) 1 Number of Rests Taken 0 2nd minute Oxygen Delivery Method Room Air Pulse Ox 96 Pulse Rate (60-100) 83 Dyspnea Gianna Scale (0-10) 2 Number of Rests Taken 0 3rd minute Oxygen Delivery Method Room Air Pulse Ox 96 Pulse Rate (60-100) 87 Dyspnea Gianna Scale (0-10) 2 Number of Rests Taken 0 4th minute Oxygen Delivery Method Room Air Pulse Ox 95 Pulse Rate (60-100) 91 Dyspnea Gianna Scale (0-10) 2 Number of Rests Taken 0 5th minute Oxygen Delivery Method Room Air Pulse Ox 97 Pulse Rate (60-100) 87 Dyspnea Gianna Scale (0-10) 2 Number of Rests Taken 0 6th minute Oxygen Delivery Method Room Air Pulse Ox 97 Pulse Rate (60-100) 93 Dyspnea Gianna Scale (0-10) 2 Number of Rests Taken 0 Post-test Oxygen Delivery Method Room Air Pulse Ox 97 Pulse Rate (60-100) 71 Dyspnea Gianna Scale (0-10) 1 Full Laps Walked 15 Partial Lap, Number of Tiles Walked 27 Total Distance Walked (ft) 912 Interpretation Interpretation: The patient ambulated 912 feet over the course of 6 minutes beginning on room air without assistive devices. Pretesting oxygen saturation was noted to be 97% on room air. With ambulation, the jad oxygen saturation was 95%. There was no significant exertional oxygen desaturation. Recommendations Recommendations: There is no indication for the use of supplemental oxygen at this time.
== END | disposition home or self-care (01) ==
LOC: PSN 12:55
PROVIDERS: PCP Family Medicine; Referring Provider Internal Medicine Critical Care Medicine; Visit Provider Internal Medicine Critical Care Medicine
DX: J45.909 Unspecified asthma, uncomplicated (principal)
CPT/HCPCS: 94618

== ENCOUNTER → 2022-09-13 | Outpatient (CLI) | payer OTHER, SELFPAY | END | disposition home or self-care (01) | LOC: SL 13:49 | PROVIDERS: PCP Family Medicine; Visit Provider Nurse Practitioner Acute Care | DX: Z00.00 Encounter for general adult medical examination without abnormal findings (principal) ==

== ENCOUNTER → 2022-09-25 | Outpatient (CLI) | payer OTHER, SELFPAY ==
--- NOTE | 2022-09-25 07:58 | CT_ITS ---
STUDY: LOW DOSE CT LUNG CANCER SCREENING REASON FOR EXAM: Male, 62 years old. EX-SMOKER 2 YEARS. 1PPD X 40 YEARS RADIATION DOSAGE (If Supplied By Facility): CTDIvol = ( 4.02 ) mGy, DLP = ( 137.43 ) mGycm TECHNIQUE: No contrast was administered. Low dose technique was utilized (average mAS-38 and kVp 120). 1.25 mm axial source images with a slice interval of 1.25-mm were reconstructed in lung windows. 2.5 mm axial source images with a slice interval of 2.5-mm were reconstructed in lung windows. 5.0 mm axial source images with a slice interval of 5.0-mm were reconstructed in soft tissue windows. COMPARISON: Comparison is made with prior study dated July 29, 2020. NODULES: No suspicious nodules are seen. Emphysema: Mild degree of hyperinflation. Endobronchial lesion: Unremarkable. Aorta: Mild atherosclerotic plaque formation of the aortic arch. CORONARY ARTERIES: Coronary artery calcification is seen. Heart: Unremarkable. Pulmonary artery: Unremarkable. Mediastinal nodes: Small mediastinal lymph nodes. Other chest and abdominal findings: CT/Low Dose CT Lung Screening IMPRESSION: Lung-RADS category 2 - Continue annual screening with LDCT in 12 months. IMPORTANT NOTES FOR USE: ACR Lung-RADS Version 1.1 Assessment Categories Release Date: 2018 Category: Coded 0-4 bases on nodule(s) with highest degree of suspicion. Negative screen is defined as categories 1 and 2; a positive screen is defined as categories 3 and 4. Category 3 and 4A nodules that are unchanged on interval CT should be coded as category 2, and individuals returned to screening in 12 months. Category 4X: Category 3 or 4 nodules with additional imaging findings that increase the suspicion of lung cancer, such as spiculation, GGN that doubles in size in 1 year, enlarged lymph notes, etc. Category Modifiers: S (significant finding unrelated to lung cancer) Electronically Signed: Akshat Pinto MD at 14:50 EDT ,
== END | disposition home or self-care (01) ==
LOC: CT 07:56
PROVIDERS: PCP Family Medicine; Referring Provider Nurse Practitioner Acute Care; Visit Provider Nurse Practitioner Acute Care
DX: F17.210 Nicotine dependence, cigarettes, uncomplicated (principal)
CPT/HCPCS: 71271

== ENCOUNTER → 2022-10-09 | Outpatient (CLI) | payer OTHER, SELFPAY ==
--- NOTE | 2022-10-09 17:50 | CT_ITS ---
STUDY: CTA HEAD AND NECK WITH CONTRAST REASON FOR EXAM: Male, 62 years old. Right intracranial ICA occlusion noted on head MRI RADIATION DOSAGE (If Supplied By Facility): CTDIvol = ( 29.84 ) mGy, DLP = ( 1586.54 ) mGycm TECHNIQUE: CT angiography was performed with a multi-detector CT scanner. Data acquisition was obtained from the skull base through the vertex following intravenous administration of 100mL [id number]-370. MIP images were reconstructed from the axial data set. Post-processing of the angiographic images was performed, with multiplanar reformation and 3D reconstruction. Individualized dose optimization techniques were used for this CT. COMPARISON: MRI July 03, 2022 FINDINGS: Normal bilateral petrous carotid arteries. There is plaque with moderate to severe narrowing of the right cavernous carotid artery and a distal occlusion. There is calcified plaque formation of the left cavernous carotid artery, with a mild stenosis (less than 50%). Mild narrowing of the right A1 segments of the anterior cerebral artery. Mild narrowing of the left A1 segments of the anterior cerebral artery. Normal intact anterior communicating artery (ACOM). Normal bilateral A2 segments of the anterior cerebral arteries. There is irregularity of the right M1 and M2 branches with mild luminal narrowing, suggesting atherosclerotic plaque formation, without an occlusion. Normal left M1 and M2 segments of the middle cerebral arteries, with a normal M1 bifurcation. There are small prominent collateral vessels in the supraclinoid region. Normal right posterior communicating artery (PCOM). Normal left posterior communicating artery (PCOM). Normal bilateral vertebral arteries. Normal basilar artery with a normal basilar bifurcation. The visualized bilateral superior cerebellar (SCA) arteries are normal. Normal bilateral P1, P2 and visualized P3 segments of the posterior cerebral arteries. There is no demonstrated aneurysm of the [place] of [place]. There is no demonstrated abnormality of the visualized brain. AORTIC ARCH: Normal visualized aortic arch. Normal origins of the brachiocephalic, left common carotid, and left subclavian arteries. RIGHT CAROTID ARTERIES: Normal right common carotid artery (CCA). Normal right common carotid bulb. There is moderate to severe diffuse narrowing of the right internal carotid artery with distal occlusion. Normal origin of the right external carotid artery (ECA). LEFT CAROTID ARTERIES: Normal left common carotid artery (CCA). Normal left common carotid bulb. Normal origin of the left internal carotid (ICA) artery without a hemodynamically significant stenosis. Normal visualized cervical portion of the left internal carotid artery. Normal origin of the left external carotid artery (ECA). VERTEBRAL ARTERIES: Normal bilateral vertebral arteries. CT/STROKE CTA Head AND Neck W/Con IMPRESSION: Moderate to severe diffuse narrowing of the right internal carotid artery with distal occlusion. Moyamoya disease or chronic dissection are leading diagnostic considerations. Mild narrowing of the right middle cerebral artery and bilateral anterior cerebral arteries.. No acute intracranial abnormality. N.B. : The above Results were Read Back by Ramos Scott MD to Christian Hernandez MD, and understanding confirmed on 10/09/2022 19:16:03 (ET). Electronically Signed: Ramos Scott MD at 19:34 EDT ,
[2022-10-09 18:31] LABS: CREATININE FINGERSTICK 1.7 mg/dL (0.70-1.30)
== END | disposition home or self-care (01) ==
LOC: CT 17:46
PROVIDERS: PCP Family Medicine; Referring Provider Psychiatry & Neurology Neurology; Visit Provider Psychiatry & Neurology Neurology
DX: I65.29 Occlusion and stenosis of unspecified carotid artery (principal)
CPT/HCPCS: 70496; 70498; Q9967

== ENCOUNTER → 2022-12-14 | Outpatient (CLI) | payer OTHER, SELFPAY ==
[2022-12-14 08:56] LABS: Absolute Lymphocyte Count 1.21 X10^3/uL (0.83-4.51); Absolute Neutrophil Count 4.2 X10^3/uL (2.0-7.7); Basophil# 0.02 X10^3/uL; Basophil% 0.3 % (0-1); Eosinophils% 1.7 % (0-5); Hematocrit 44.8 % (40-54); Hemoglobin 14.4 g/dL (13.0-16.5); Lymphocyte # 1.21 X10^3/ul (0.83-4.51); Mean Corp Hgb Conc 32.1 g/dL (32-36); Mean Corpuscular Hgb 30.4 pg (27.0-32.0); Mean Corpuscular Volume 94.7 fL (80-94); Monocyte# 0.47 X10^3/uL; Monocyte% 7.8 % (0-10); NRBC Flagged by Analyzer 0 % (0-5); Neutrophil # 4.23 X10^3/uL (2.7-7.7); Neutrophil % 69.9 % (47-70); Platelet Count 164 K/mm3 (150-450); RBC Distribution Width CV 13.7 % (11.6-14.6); RBC Distribution Width SD 47.6 fl (35.1-43.9); Red Blood Count 4.73 M/mm3 (4.6-6.2); White Blood Count 6.1 K/mm3 (4.4-11.0)
[2022-12-20 04:07] LABS: Alternaria alternata <0.10 kU/L (Class 0); Bermuda Grass <0.10 kU/L (Class 0); Bluegrass, Kentucky <0.10 kU/L (Class 0); Cat Hair/Dander, Standard <0.10 kU/L (Class 0); D farinae Mite <0.10 kU/L (Class 0); D pteronyssinus <0.10 kU/L (Class 0); Dog Epithelia <0.10 kU/L (Class 0); Elm, American White <0.10 kU/L (Class 0); Mouse Urine <0.10 kU/L (Class 0); Oak, White <0.10 kU/L (Class 0); Plantain, English <0.10 kU/L (Class 0); Ragweed, Short/Common <0.10 kU/L (Class 0)
[2022-12-20 17:07] LABS: Aspirgillus flavus Negative (Neg:<1:1); Aspirgillus fumigatus Negative (Neg:<1:1); Aspirgillus niger Negative (Neg:<1:1); Cytoplasmic Ab (C-ANCA) <1:20 titer (Neg:<1:20); Immunoglobulin E 176 IU/mL (6-495); Perinuclear Ab (P-ANCA) <1:20 titer (Neg:<1:20)
== END | disposition home or self-care (01) ==
LOC: PAVLAB 08:42
PROVIDERS: PCP Family Medicine; Referring Provider Nurse Practitioner Acute Care; Visit Provider Nurse Practitioner Acute Care
DX: J30.9 Allergic rhinitis, unspecified (principal)
CPT/HCPCS: 36415; 82785; 85025; 86003; 86256; 86606

== ENCOUNTER → 2023-02-04 | Outpatient (CLI) | payer OTHER, SELFPAY ==
--- NOTE | 2023-02-04 09:53 | CDU_ITS ---
Reason For Study: Evaluate Rt ICA for Occlusion Rt. Velocities/BP Lt. Velocities/BP Prox CCA 47.8/9.7 cm/sec. Prox CCA 63.7/17.1 cm/sec. Mid CCA 52.7/13.4 cm/sec. Mid CCA 82.1/25.7 cm/sec. Dist CCA 67.4/18.3 cm/sec. Dist CCA 50.2/18.3 cm/sec. Prox ICA 155.6/39.3 cm/sec. Prox ICA 65.0/13.4 cm/sec. Mid ICA 124.0/27.2 cm/sec. Mid ICA 45.3/21.7 cm/sec. Dist ICA 56.6/16.5 cm/sec. Dist ICA 35.2/16.9 cm/sec. Rt. ICA/CCA = 3.0. Lt. ICA/CCA = 0.8. Prox ECA 64.5/6.0 cm/sec. Prox ECA 65.0/12.2 cm/sec. Rt. Vert. 33.0/14.6 cm/sec. Lt. Vert. 33.1/12.1 cm/sec. Right Extracranial There is homogeneous, smooth atherosclerotic plaque noted in the right common carotid artery. The right common carotid artery is tortuous. There is heterogeneous, irregular atherosclerotic plaque noted in the right internal carotid artery. There is heterogeneous, irregular atherosclerotic plaque noted in the right external carotid artery. Antegrade flow is noted in the right vertebral artery. Left Extracranial There is intimal thickening but no significant atherosclerotic plaque noted in the left common carotid artery. There is intimal thickening but no significant atherosclerotic plaque noted in the left internal carotid artery. There is intimal thickening but no significant atherosclerotic plaque noted in the left external carotid artery. Antegrade flow is noted in the left vertebral artery. Procedure Carotid Duplex [id number]. This is a Carotid Duplex examination using B-mode, color flow and specral Doppler. The exam was diagnostic. The study was technically difficult. Exam performed in department. VL/Carotid Duplex Ultrasound Interpretation Summary Moderate (50-69%) stenosis right extracranial internal carotid. Normal left extracranial internal carotid. Patent and antegrade vertebrals bilaterally. Ordering Physician: Christian Hernandez Referring Physician: Cisco Dozier Performed By: Mike Gonzales RVT
== END | disposition home or self-care (01) ==
LOC: CVS 09:46
PROVIDERS: PCP Family Medicine; Referring Provider Psychiatry & Neurology Neurology; Visit Provider Psychiatry & Neurology Neurology
DX: I65.29 Occlusion and stenosis of unspecified carotid artery (principal)
CPT/HCPCS: 93880

== ENCOUNTER 2023-03-16 09:53 | Inpatient (IN) | payer OTHER, SELFPAY ==
[2023-03-16] VITALS (10 sets, daily range): BP systolic 73–143; BP diastolic 63–96; PULSE 74–101; RESP 16–22; TEMP 36.2–36.7; O2SAT 90–98; BMI 31.9; BMI 32.5
--- NOTE | 2023-03-16 10:20 | EDS_ITS ---
HPI History of Present Illness Chief Complaint: Diarrhea Informant: patient and spouse/S.O. Narrative Narrative: 62-year-old male presenting to the emergency room for diarrhea only at night for about 10 days. Patient states that during the day he does not have any bowel movements. At night he awakens with bloating and cramping states he will have 5-6 episodes of diarrhea. 1 month ago he states he was treated for an asthma exacerbation with an antibiotic and some prednisone. He does not know what antibiotic he was on (per chart review I see that he was prescribed azithromycin 15 February 2023). He states he saw pulmonology about 4 days ago. He was richard ated for oral thrush. He states that since starting that medicine his dry mouth seems to be better. Patient notes no fever. He denies any history of colitis diverticulitis food intolerances. He gets most of his care through [facility] cardiology and urology is through at [facility]. He denies any other new medications. He denies any change in medication dosing.. states she is feeling fine. He does not wear home oxygen. He does not feel short of breath. No change in cough. [facility] Medical History (Updated 03/16/23 @ 13:[address] Moses Grady, DO) Abnormal CT of the chest Acute deep vein thrombosis of lower extremity Alcohol use Arthritis Bilateral hearing loss DVT (deep venous thrombosis) Gastric reflux High cholesterol History of nuclear stress test Hypothyroidism MARYJO (obstructive sleep apnea) Smoker Wears glasses Home Medications omeprazole 40 mg capsule,delayed release 40 mg PO BID #120 caps 11/18/20 [Rx Last Taken 11/23/20] albuterol sulfate 90 mcg/actuation aerosol inhaler 2 puff inhalation Q6H PRN shortness of breath or wheezing #6.7 grams 11/23/20 [Rx Last Taken Unknown] levothyroxine 150 mcg tablet (Synthroid) 150 mcg PO DAILY 01/13/21 [History Last Taken Unknown] aspirin 81 mg chewable tablet (Luis Alberto Chewable Low Dose Aspirin) 81 mg PO DAILY 01/24/22 [History Last Taken Unknown] clopidogrel 75 mg tablet 75 mg PO DAILY 01/24/22 [History Last Taken Unknown] ezetimibe 10 mg tablet 10 mg PO DAILY 01/24/22 [History Last Taken Unknown] metoprolol succinate 25 mg tablet,extended release 24 hr 12.5 mg PO DAILY 01/24/22 [History Last Taken Unknown] rosuvastatin 5 mg tablet 5 mg PO DAILY 01/24/22 [History Last Taken Unknown] albuterol sulfate 2.5 mg/3 mL (0.083 %) solution for nebulization 2.5 mg inhalation Q4H PRN 05/17/22 [History Last Taken Unknown] tamsulosin 0.4 mg capsule 0.4 mg PO BID 05/17/22 [History Last Taken Unknown] furosemide 40 mg tablet (Lasix) 40 mg PO DAILY 06/04/22 [History Last Taken Unknown] isosorbide mononitrate 60 mg tablet,extended release 24 hr 60 mg PO DAILY 06/04/22 [History Last Taken Unknown] spironolactone 25 mg tablet 25 mg PO DAILY 06/04/22 [History Last Taken Unknown] Bilateral knee-high compression stockings (10-20) #2 ea 07/02/22 [Rx Last Taken Unknown] Handicap placard #1 ea 10/01/22 [Rx Last Taken Unknown] atropine 1 % eye drops See Rx Instructions buccal DAILY #10 mL 01/31/23 [Rx Last Taken Unknown] carbidopa 25 mg-levodopa 100 mg tablet 2 tab PO TID #540 tabs 01/31/23 [Rx Last Taken Unknown] budesonide-formoterol HFA 160 mcg-4.5 mcg/actuation aerosol inhaler (Symbicort) 2 puff inhalation BID #1 ea 02/12/23 [Rx Last Taken Unknown] nystatin 100,000 unit/mL oral suspension 5 ml mucous membrane TID #250 mL 03/12/23 [Rx Last Taken Unknown] Allergy/AdvReac Type Severity Reaction Status Date / Time vibegron [From Gemtesa] Allergy Severe Rash Verified 03/12/23 10:10 Family History Father COPD (chronic obstructive pulmonary disease) Emphysema lung Myocardial infarction Mother Parkinsons disease Surgical History H/O cardiac catheterization H/O knee surgery H/O thyroidectomy Hx of arthroscopy of knee Social History Smoking Status: Current some day smoker tobacco type: cigarettes Tobacco: How many years used: 45 second hand exposure: Yes alcohol intake: current alcohol intake frequency: holidays/special occasions only substance use type: does not use caffeine: Yes (daily) what type of physical activity do you participate in: walking seatbelt use: sometimes ROS ROS ED Constitutional Constitutional ED: Denies chills, fever(s) or weight loss Eyes Eyes: Denies change in vision or diplopia ENT ENT ED: Reports other Details: Dry mouth decreased appetite ; Denies ear pain, rhinorrhea or sore throat Cardiovascular Cardiovascular: Denies chest pain, orthopnea, palpitations or racing heartbeat Respiratory/Chest Respiratory/Chest: Denies cough, dyspnea or orthopnea Gastrointestinal Gastrointestinal: Reports diarrhea; Denies abdominal pain, nausea or vomiting Genitourinary Genitourinary ED: Denies dysuria, hematuria or urinary frequency Musculoskeletal Musculoskeletal: Denies arthralgias, back pain, myalgias or neck pain Integumentary Denies abscess or rash Neurologic Neurologic: Denies headache(s) or weakness Psychiatric Psychiatric: Denies anxiety, depression, suicidal ideation or suicidal thoughts Endocrine Endocrinology: Denies polydipsia, polyphagia or polyuria Allergic/Immunologic Allergic/Immunologic ED: Denies mouth swelling, tongue swelling or urticaria EXAM Physical Exam Const Vital Signs: 03/16/23 09:53 03/16/23 10:49 03/16/23 11:01 Temperature 97.2 F L Temperature Source Temporal Pulse Rate 85 Pulse Rate [Lying] 77 Pulse Rate [Sitting (for 1 minute prior to obtaining)] 86 Pulse Rate [Standing (for 1 minute prior to obtaining)] 101 H Respiratory Rate 16 Blood Pressure 95/74 Blood Pressure [Lying] 132/73 H Blood Pressure [Sitting (for 1 minute prior to obtaining)] 100/74 Blood Pressure [Standing (for 1 minute prior to obtaining)] 73/63 L Blood Pressure Mean 81 Blood Pressure Mean [Lying] 92 Blood Pressure Mean [Sitting (for 1 minute prior to obtaining)] 82 Blood Pressure Mean [Standing (for 1 minute prior to obtaining)] 66 Pulse Ox 90 92 Oxygen Delivery Method Room Air Nasal Cannula Oxygen Flow Rate (L/min) 2 03/16/23 11:12 03/16/23 12:47 Temperature Temperature Source Pulse Rate 89 80 Pulse Rate [Lying] Pulse Rate [Sitting (for 1 minute prior to obtaining)] Pulse Rate [Standing (for 1 minute prior to obtaining)] Respiratory Rate 22 H 16 Blood Pressure 116/88 H 109/80 Blood Pressure [Lying] Blood Pressure [Sitting (for 1 minute prior to obtaining)] Blood Pressure [Standing (for 1 minute prior to obtaining)] Blood Pressure Mean 97 89 Blood Pressure Mean [Lying] Blood Pressure Mean [Sitting (for 1 minute prior to obtaining)] Blood Pressure Mean [Standing (for 1 minute prior to obtaining)] Pulse Ox 94 98 Oxygen Delivery Method Nasal Cannula Nasal Cannula Oxygen Flow Rate (L/min) 2 2 Positive well nourished and well developed General Appearance ED: well developed HEENT Reports normocephalic, head/scalp atraumatic and moist mucous membranes Eyes PERRL and EOMs intact bilaterally Neck no lymphadenopathy, supple and no JVD Resp normal respiratory effort and clear to auscultation bilaterally Cardio regular rate, regular rhythm and no murmurs GI normal to inspection, nondistended, normoactive bowel sounds and non-tender Palpation: soft Back/Spine no CVA tenderness and normal ROM Extremity normal to inspection General Extremety ED: Negative for edema General Extremity: Negative for edema Neuro oriented x3 and CN's II-XII intact bilaterally Sensorium / Orientation: alert Motor Exam: strength 5/5 throughout Psych mental status grossly normal Mood & Affect: Negative for depressed or tearful Skin no rashes or lesions noted and no wounds MDM MDM MDM Narrative Medical decision making narrative: Basic blood work showed a white count of 6.6 hemoglobin 14.6 and platelet count of 158. BMP shows a creatinine 1.37 potassium 3.4. Troponin normal BNP 81.7. Liver enzymes normal. My independent interpretation of the chest x-ray is left lower lobe infiltrate versus atelectasis. CT of the abdomen pelvis demonstrates changes consistent with an enteritis. CTA was obtained given the chest x-ray findings, hypoxia, and history of DVT. This demonstrates no pulmonary embolism. There are changes consistent with a left lower lobe infiltrate. Urine with Legionella and strep pneumonia was ordered. Patient is yet to be able to produce a specimen. He was orthostatic positive before IV fluids. I ordered Rocephin and azithromycin. Given that he is requiring supplemental oxygen the orthostatic hypotension the diarrhea and pneumonia plan will be admission. History & Record Review Discussion w/independent historian: Patient, Family and Significant other Additional record(s) reviewed:: Prior inpatient record, Prior outpatient record, Prior ED visit and Prior labs Lab Data Attestation: I reviewed the patient's lab results. Labs: Laboratory Results - last 24 hr 03/16/23 10:30 WBC 6.6 RBC 4.76 Hgb 14.6 Hct 43.9 MCV 92.2 MCH 30.7 MCHC 33.3 RDW Std Deviation 44.6 H RDW Coeff of Nick 13.2 Plt Count 158 MPV 11.5 Immature Gran % (Auto) 0.300 Neut % (Auto) 70.6 H Lymph % (Auto) 22.0 [place] % (Auto) 6.2 Eos % (Auto) 0.6 Baso % (Auto) 0.3 Absolute Neuts (auto) 4.7 Absolute Lymphs (auto) 1.46 Nucleated RBC % 0 Sodium 136 Potassium 3.4 L Chloride 101 Carbon Dioxide 32.0 Anion Gap 3 L BUN 14 Creatinine 1.37 H Estim Creat Clear Calc 62.93 Est GFR (MDRD) Af Amer 67 Est GFR (MDRD) Non-Af 56 L BUN/Creatinine Ratio 10.2 Glucose 140 H Calcium 9.2 Total Bilirubin 0.80 Direct Bilirubin 0.29 AST 13 L ALT 8 L Alkaline Phosphatase 77 Troponin I High Sens 39 B-Natriuretic Peptide 81.7 Total Protein 7.1 Albumin 3.6 Globulin 3.5 Lipase 15 Radiography Diagnostic Testing: Clinical Impression(s) from Imaging Studies Chest X-Ray 03/16/23 10:24 IMPRESSION: Mild bibasilar atelectasis or pneumonia. Electronically Signed: Valarie Lemos MD at 10:53 EST Reading Location ID and State: [facility] / [place] Tel , Service support , Abdomen/Pelvis CT 03/16/23 11:07 IMPRESSION: Mild enteritis with mild fluid distention, wall thickening, and mesenteric edema of distal small bowel. Colonic diverticulosis without acute diverticulitis. Other chronic findings as above. Electronically Signed: Valarie Lemos MD at 11:58 EST Reading Location ID and State: [facility] / [place] Tel , Service support , Chest CTA 03/16/23 11:07 IMPRESSION: No evidence of pulmonary embolism. Mild left lower lobe pneumonia. Mild right lower lobe atelectasis. Electronically Signed: Valarie Lemos MD at 11:52 EST Reading Location ID and State: [facility] / [place] Tel , Service support , EKG Initial EKG: Attestation: I personally reviewed and interpreted this EKG as follows: Comments: Sinus rhythm with a ventricular rate of 78 bpm. EKG suggestive of right atrial enlargement. PVCs noted. Management Discussion w/another healthcare provider: Hospitalist Discharge Plan Dx/Rx/DC Orders Clinical Impression: Pneumonia, Asthma, CAD (coronary artery disease), Orthostatic hypotension, Chronic diastolic (congestive) heart failure, Acute hypoxemic respiratory failure, Diarrhea Disposition Disposition: Acute Care Hospital [facility]
--- NOTE | 2023-03-16 10:24 | RAD_ITS ---
HISTORY: asthma. TECHNIQUE: XR Chest 1 View. COMPARISON: 01/24/2022. FINDINGS: CARDIOMEDIASTINAL BORDERS: Cardiac silhouette within normal limits in size. Mediastinal contour unremarkable. LUNGS: Mild bibasilar opacities. PLEURA: No pleural effusion or pneumothorax seen. OSSEOUS STRUCTURES: Old right fourth through seventh rib fractures. RAD/Chest 1 View (Portable) IMPRESSION: Mild bibasilar atelectasis or pneumonia. Electronically Signed: Valarie Lemos MD at 10:53 EST ,
--- OUTSIDE RECORDS SUMMARY | 2023-03-16 10:31 | XMS RPT_ITS | CCD ---
Author Name Unknown Address [address] [place] [address] Organization [facility] Care Team Providers Care Piano Builder Name Role Phone Cisco Dozier Unavailable Unavailable Unavailable Unavailable Unavailable Cisco Dozier Unavailable Yvan Walker Unavailable Unavailable Macario Bond Unavailable Unavailable Princess Mireille Unavailable Unavailable Giovanni Cantu Unavailable Cara Dorantes Unavailable Dr. Cisco Dozier Primary Care Unavaila Alfa Workman Attending Brookea bhumi Hope, Dr. Ernestina Deras Attending Unavailable Herminia, Dr. Ernestina Deras Referring Unavailable Tasia, Dr. Cisco Crawford Primary Care UnavailMD NEVIN Richards Attending Ema Cee, Dr. Cisco Crawford Primary Care Unavaila Cara Aguero Attending Unavailable Tasia, Dr. Cisco Crawford Primary Care Unavaila Cara Aguero Attending Unavailable Tasai, Dr. Cisco Crawford Primary Care UnavailMD NEVIN Richards Attending Ema Cee, Dr. Cisco Crawford Primary Care Risa Dozier, Dr. Cisco Crawford Primary Care Brookea bhumi Appiah II, Dr. Rj Bernstein Attending Justin Appiah II, Dr. Rj Bernstein Referring MD GIOVANNI Zendejas Attending Justin Dozier, Dr. Cisco Crawford Primary Care MD GIOVANNI Llanes Admitting Justin Dozier, Dr. Cisco Crawford Primary Care Risa CANTU MD GIOVANNI RUPERTO Admitting Justin CANTU, MD GIOVANNI HICKEY Attending Justin Dozier, Dr. Cisco Crawford Primary Care Unavailbaltazar CANTU, MD GIOVANNI HICKEY Admitting Justin CANTU, MD GIOVANNI HICKEY Attending Doloresvamarcin Dozier, Dr. Cisco Crawford Primary Care Unavaila ble Tasia, Dr. Cisco Crawford Referring Unavaila ble Vergis, Dr. Macario Wade Attending Unav ailable Tasia, Dr. Cisco Crawford Primary Care Unavaila ble Aly, Dr. Leta Crawford Attending Unavail able Desmondbaltazar, Dr. Leta Crawford Referring Unavail able Tasia, Dr. Cisco Crawford Primary Care Unavaila ble Aly, Dr. Leta Crawford [facility]ending [facility]ail [facility] Dr. Leta Crawford Referring Unavail able Allergies Allergy Classification Reported Allergen(s) Allergy Type Date of Onset Reaction(s) Facility (20 sources) [facility] TABS; Translations: [[facility] TABS] Allergy to drug (finding) QK-Fbmrstr-Cx hland Work Phone: Medications Current Medications Medication Drug Class(es) Dates Sig (Normalized) Sig (Original) acetaminophen 325 mg oral tablet (1 source) Start: 06-05-2021 take 2 tablets by mouth every six hours as needed acetaminophen 325 mg oral tablet ; 2 tab(s) orally every 6 hours, As needed, Pain - Mod (4-6) Quantity: 0 Refills: 0 Ordered: 05-Jun-2021 Gene Lemus Start: 05-Jun-2021 Generic Substitution Allowed docusate sodium 50 mg / sennosides, group home 8.6 mg oral tablet (1 source) Start: 06-08-2021 take 2 tablets by mouth twice daily sennosides-docusat e 8.6 mg-50 mg oral tablet ; 2 tab(s) orally 2 times a day Quantity: 0 Refills: 0 Ordered: 08-Jun-2021 Leandra Pollack Start: 08-Jun-2021 Generic Substitution Allowed empagliflozin 10 mg oral tablet (1 source) Sodium-Glucose Cotransporter 2 Inhibitor Start: 06-08-2021 End: 06-19-2022 take 1 tablet by mouth once daily empagliflozin 10 mg oral tablet ; 1 tab(s) orally once a day -.Meds to Beds Quantity: 30 Refills: 1 Ordered: 08-Jun-2021 Leandra Pollack Start: 08-Jun-2021 End: 06-Aug-2021 Generic Substitution Allowed Comments: Check with your doctor before becoming . Completed/Discontinued Medications Medication Drug Class(es) Dates Sig (Normalized) Sig (Original) albuterol 0.83 mg/ml inhalation solution (20 sources) beta2-Adrenergic Agonist Start: 01-08-2022 Albuterol Sulfate (2.5 MG/3ML) 0.083% Inhalation Nebulization Solution Quantity: 0 Refills: 0 Ordered: 08-Jan-2022 DO Start : 08-Jan-2022 Active Problems Active Problems Problem Classification Problem Date Documented Da te Episodic/Chronic Administrative/social admission (20 sources) Counseling procedure with explicit context; Translations: [Counseling on substance use and abuse] Episodic Asthma (18 sources) Asthma; Translations: [Asthma, unspecified type, unspecified] Onset: 2 Chronic Cardiac dysrhythmias (20 sources) Tachycardia; Translations: [Tachycardia, unspecified] Onset: 2 06-06-2021 Episodic Complications of surgical procedures or medical care (20 sources) Postoperative hypothyroidism; Translations: [Postsurgical hypothyroidism] Chronic Congestive heart failure; nonhypertensive (4 sources) Acute on chronic diastolic heart failure; Translations: [Acute on chronic diastolic heart failure] Onset: 2 06-07-2021 Chronic Coronary atherosclerosis and other heart disease (20 sources) Coronary arteriosclerosis; Translations: [Coronary atherosclerosis of unspecified type of vessel, [place] or graft] Onset: 2 Chronic Coronary atherosclerosis and other heart disease (2 sources) Presence of coronary angioplasty implant and graft; Translations: [Presence of coronary angioplasty implant and graft] Onset: 2 Episodic Coronary atherosclerosis and other heart disease (1 source) Coronary atherosclerosis and other heart disease 06-06-2021 Diabetes mellitus without complication (1 source) Type 2 diabetes mellitus without complications; Translations: [Type 2 diabetes mellitus without complications] Onset: 2 Chronic Disorders of lipid metabolism (20 sources) Hyperlipoproteinemia; Translations: [Other and unspecified hyperlipidemia] Onset: 2 06-06-2021 Chronic Esophageal disorders (20 sources) Laryngopharyngeal reflux; Translations: [Other diseases of larynx, not elsewhere classified] Chronic Essential hypertension (20 sources) Hypertensive disorder; Translations: [Unspecified essential hypertension] Onset: 3 Chronic Genitourinary symptoms and ill-defined conditions (20 sources) Urge incontinence of urine; Translations: [Urge incontinence] Chronic Genitourinary symptoms and ill-defined conditions (20 sources) Poor stream of urine; Translations: [Slowing of urinary stream] Episodic Hyperplasia of prostate (20 sources) Hyperplasia of prostate; Translations: [Benign localized hyperplasia of prostate with urinary obstruction and other lower urinary tract symptoms (LUTS)] Chronic Immunity disorders (3 sources) 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; 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 Mycoses (20 sources) Mycosis; Translations: [Other and unspecified mycoses] Episodic Neoplasms of unspecified nature or uncertain behavior (1 source) Polycythemia vera; Translations: [Polycythemia vera] Onset: 2 Chronic Nonspecific chest pain (2 sources) Chest pain; Translations: [Chest pain, unspecified] 06-03-2021 Episodic Other aftercare (1 source) Drug indicated; Translations: [Long-term (current) use of other medications] Onset: 2 06-06-2021 Episodic Other aftercare (1 source) Drug therapy finding; Translations: [Long-term (current) use of steroids] Onset: 2 06-06-2021 Episodic Other aftercare (1 source) Other terminal manager (current) drug therapy; Translations: [Other terminal manager (current) drug therapy] Onset: 2 Episodic Other gastrointestinal disorders (1 source) Abdominal distension, gaseous; Translations: [Flatulence, eructation, and gas pain] Onset: 2 06-06-2021 Episodic Other lower respiratory disease (20 sources) Difficulty breathing; Translations: [Other respiratory abnormalities] Episodic Other lower respiratory disease (4 sources) Dyspnea; Translations: [Other respiratory abnormalities] Onset: 2 06-03-2021 Episodic Past or Other Problems Problem Classification Problem Date Documented Da te Episodic/Chronic Immunizations and screening for infectious disease (2 sources) Contact with or exposure to other viral diseases; Translations: [Other specified abnormal immunological findings in serum] Onset: 06-06-2021 06-06-2021 Episodic Malaise and fatigue (1 source) Other malaise; Translations: [Other malaise] Onset: 11-27-2021 Episodic Other gastrointestinal disorders (1 source) Abdominal distension (gaseous); Translations: [Abdominal distension (gaseous)] Onset: 11-22-2021 Episodic Other hematologic conditions (1 source) Other specified abnormalities of plasma proteins; Translations: [Other specified abnormalities of plasma proteins] Onset: 11-14-2021 Episodic Other hematologic conditions (1 source) Secondary polycythemia; Translations: [Secondary polycythemia] Onset: 11-01-2021 Episodic Other lower respiratory disease (3 sources) Shortness of breath; Translations: [Shortness of breath] Onset: 12-09-2021 Episodic Other lower respiratory disease (1 source) Other abnormalities of breathing; Translations: [Other abnormalities of breathing] Onset: 11-14-2021 Episodic Other nutritional; endocrine; and metabolic disorders (1 source) Personal history of other endocrine, nutritional and metabolic disease; Translations: [Personal history of endo, nutritional and metabolic disease] Onset: 11-01-2021 Episodic Residual codes; unclassified (1 source) Personal history of other drug therapy; Translations: [Personal history of other drug therapy] Onset: 11-27-2021 Episodic Results Test Name Value Interpretation Reference Range Facil ity Vital Signs Date Time Vital Sign Value Performing Clinician Linda lopez 09-25-2022 16:10-0400 Body height 175.26 cm Cisco Moore [employer] Work Phone: [employer] [address] [place] Work Phone: 09-25-2022 16:10-0400 Body mass index (BMI) [Ratio] 32.49 kg/m2 [employer] Phone: KQ-Ygjsfbkcgo-Dqmb na 140 [place] Work Phone: 09-25-2022 16:10-0400 Body surface area Derived from formula 2.15 m2 Cisco Moore [employer] Phone: XB-Xxdelkfjjp-Giuu na 140 [place] Work Phone: 09-25-2022 16:10-0400 Body weight 99.79 kg Cisco Moore [employer] Work Phone: DJ-Ofvrcuytar-Kqra na 140 [place] Work Phone: 09-25-2022 16:10-0400 Diastolic blood pressure 73 mm[Hg] Cisco Moore [employer] Work Phone: XI-Lwiekwzrur-Wvng na 140 [place] Work Phone: 09-25-2022 16:10-0400 Heart rate 67 /min Cisco Moore [employer] Work Phone: LZ-Gxabldkmkx-Vaiy na 140 [place] Work Phone: 09-25-2022 16:10-0400 SaO2% (BldA) [Mass fraction] 98 % Cisco Moore [employer] Work Phone: CC-Weczdcgbrl-Jwqt na 140 [place] Work Phone: 09-25-2022 16:10-0400 Systolic blood pressure 115 mm[Hg] Cisco Moore [employer] Work Phone: LR-Uxvuhiponf-Dmfz na 140 [place] Work Phone: 03-28-2022 13:11-0500 Body mass index (BMI) [Ratio] 34.74 kg/m2 Cisco Moore [employer] Work Phone: VZ-Nueaokn-Pulitna Work Phone: 03-28-2022 13:11-0500 Body surface area Derived from formula 2.21 m2 Cisco Moore [employer] Work Phone: AS-Smlijrm-Ovmmrqv Work Phone: 03-28-2022 13:11-0500 Body weight 106.71 kg Cisco Moore [employer] Work Phone: MY-Ugszzci-Ehwvozu Work Phone: 03-28-2022 13:11-0500 Diastolic blood pressure 75 mm[Hg] Cisco Moore [employer] Work Phone: RN-Wzalhdn-Tjgtinz Work Phone: 03-28-2022 13:11-0500 Heart rate 71 /min Cisco Moore [employer] Work Phone: XF-Aixsyqd-Kuihsle Work Phone: 03-28-2022 13:11-0500 Systolic blood pressure 123 mm[Hg] Cisco Moore [employer] Work Phone: BB-Jufqpnc-Oxoeett Work Phone: 03-27-2022 15:45-0500 Body height 175.26 cm Cisco Moore [employer] Work Phone: AC-Diffmkhtys-Ccdf na [address] [place] Work Phone: 03-27-2022 15:45-0500 Body mass index (BMI) [Ratio] 33.97 kg/m2 Cisco Moore [employer] Work Phone: RC-Oysvvqhfdq-Hvol na 140 [place] Work Phone: 03-27-2022 15:45-0500 Body surface area Derived from formula 2.19 m2 Cisco Moore [employer] Work Phone: AP-Hkpfxqewhh-Qklg na 140 [place] Work Phone: 03-27-2022 15:45-0500 Body weight 104.33 kg Cisco Moore [employer] Work Phone: WP-Yuypgszoou-Kquk na 140 [place] Work Phone: 03-27-2022 15:45-0500 Diastolic blood pressure 67 mm[Hg] Cisco Moore [employer] Work Phone: TJ-Mqtkztudfx-Hnsm na 140 [place] Work Phone: 03-27-2022 15:45-0500 Heart rate 64 /min Cisco UNATION Work Phone: SR-Zxhhisshpm-Brxp na 140 [place] Work Phone: 03-27-2022 15:45-0500 SaO2% (BldA) [Mass fraction] 96 % Cisco Moore [employer] Work Phone: NZ-Arlwqsxhpr-Btcw na 140 [place] Work Phone: 03-27-2022 15:45-0500 Systolic blood pressure 103 mm[Hg] Cisco Moore [employer] Work Phone: ME-Vavzabsmet-Ddev na 140 [place] Work Phone: 02-07-2022 13:45-0500 Body height 175.26 cm Cisco Moore [employer] Work Phone: [facility] [facility] Work Phone: 02-07-2022 13:45-0500 Body mass index (BMI) [Ratio] 33.57 kg/m2 Cisco Moore [employer] Work Phone: [facility] [facility] Work Phone: 02-07-2022 13:45-0500 Body surface area Derived from formula 2.18 m2 Cisco Moore [employer] Work Phone: [facility] Work Phone: 02-07-2022 13:45-0500 Body temperature 97.9 [degF] Cisco Moore [employer] Work Phone: [facility] Work Phone: 02-07-2022 13:45-0500 Body weight 103.11 kg Cisco Moore [employer] Work Phone: [facility] Work Phone: 02-07-2022 13:45-0500 Diastolic blood pressure 73 mm[Hg] Cisco Moore [employer] Work Phone: [facility] Work Phone: 02-07-2022 13:45-0500 Heart rate 70 /min Cisco Moore [employer] Work Phone: [facility] Work Phone: 02-07-2022 13:45-0500 SaO2% (BldA) [Mass fraction] 96 % Cisco Dozier Work Phone: [facility] Work Phone: 02-07-2022 13:45-0500 Systolic blood pressure 111 mm[Hg] Cisco Dozier Work Phone: [facility] Work Phone: 02-07-2022 13:45-0500 0 1 Cisco Dozier Work Phone: [facility] Work Phone: Encounters Encounter Date Encounter Type Care Provider Facility Start: 11-06-2022 AUDIT Cisco Moore [facility] Work Phone: JJ-Clrjatz-Urorffu Work Phone: Start: 11-03-2022 AUDIT Cisco A Stutzma n Work Phone: JE-Xbazqengkn-Eqyn a Work Phone: Start: 09-25-2022 Office outpatient vi sit 15 minutes Cisco Dozier Work Phone: AJ-Tdsmfkdjmx-Ezvz na 140 [place] Work Phone: Start: 09-25-2022 ambulatory MD NEVIN LI F acility:[id number] Start: 09-21-2022 AUDIT Cisco A Stutzma n Work Phone: DA-Ietkzqjgud-Jiwh na 140 [place] Work Phone: Start: 09-10-2022 AUDIT Cisco A Stutzma n Work Phone: WF-Fqtnnqpwui-Vlpr a Work Phone: Start: 06-07-2022 AUDIT Cisco A Stutzma n Work Phone: VQ-Pqecyplwpz-Yyhg a Work Phone: Start: 05-09-2022 AUDIT Cisco Moore [facility] Work Phone: LF-Ixtvghukej-Qklo na 140 [place] Work Phone: Start: 03-28-2022 FUV, Provider: Rj Appiah II, Status: Pen, Time: 1:15 PM Cisco Moore Tasia Work Phone: CE-Yssfhzdmjx-Btrc na 140 [place] Work Phone: Start: 03-28-2022 Office outpatient vi sit 25 minutes Cisco A Tasia Work Phone: KN-Chrvqai-Xrtvyuy Work Phone: Start: 03-28-[address] Cisco Dozier Facility:[id number] Start: 03-27-2022 Office outpatient vi sit 25 minutes Cisco A Tasia Work Phone: IL-Xnwmafftql-Lhmn na 140 [place] Work Phone: Start: 03-27-2022 ambulatory MD NEVIN Scanlon acility:[id number] Start: 03-09-2022 AUDIT Cisco Moore Strich[place] n Work Phone: IB-Wpqcppp-Qkxgees Work Phone: Start: 02-07-[address] Ernestina Hope Facility:[facility] Start: 02-07-2022 Patient encounter procedure Cisco Moore Tasia Work Phone: [facility] [facility] Work Phone: Start: 01-25-2022 Chart Update Cisco Moore Strichadrma n Work Phone: [facility] [facility] Work Phone: Start: 01-08-2022 Office outpatient vi sit 15 minutes Cisco A Tasia Work Phone: [facility] Work Phone: Start: 01-08-2022 Patient encounter procedure Cisco Dozier Work Phone: [facility] [facility] Work Phone: Start: 01-08-[address] Cisco Dozier Facility:[facility] Start: 12-25-2021 Chart Update Cisco Reesma n Work Phone: BS-Vklyokycpe-Nvix na 140 [place] Work Phone: Start: 12-14-2021 AUDIT Cisco Baltazar Ramirezrichardma n Work Phone: ZA-Fohjhmqoxm-Inrn a Work Phone: Start: 12-09-2021 End: 12-09-2021 Emergency department patient visit Dr. Cisco Dozier Facility:[id number] Start: 12-08-2021 ADLTPSG, Provider: [facility] RM 2,[id number], Status: Pen, Time: 8:00 PM Cisco Dozier Work Phone: DY-Jzbezyymlu-Ytgl a Work Phone: Start: 12-08-2021 AUDIT Cisco Reesma n Work Phone: RO-Gznuooblgm-Nuuh na 140 [place] Work Phone: Start: 12-07-2021 Chart Update Cisco Reesma n Work Phone: FR-Ieuutmbhmt-Gwfg a Work Phone: Start: 11-27-2021 Office outpatient vi sit 25 minutes Cisco Dozier Work Phone: MG-Pulm Sleep-[facility] [address] [place] Work Phone: Start: 11-27-2021 Patient encounter procedure Cisco Dozier Work Phone: [facility] [facility] Work Phone: Start: 11-27-[address] Cisco Dozier Facility:[facility] Start: 11-22-2021 AUDIT Cisco Reesma n Work Phone: YL-Kryabfzsp-Pguab 204 Work Phone: Start: 11-22-[address] Cisco Dozier Facility:[facility] Start: 11-14-2021 Office outpatient ne w 45 minutes Cisco Dozier Work Phone: BB-Ulsdgatwes-Fzzj na 140 [place] Work Phone: Start: 11-14-2021 ambulatory Cara Camachoranco Facility :[id number] Start: 11-01-[address] Cisco Dozier Facility:[facility] Start: 11-01-[address] Cisco Dozier Facility:[facility] Start: 11-01-2021 Patient encounter procedure Cisco Dozier Work Phone: MP-Pulmonary Medicine-[facility] 6 Work Phone: Start: 10-26-2021 AUDIT Cisco Reesma n Work Phone: AC-Aefeuuxlgn-Fedx a Work Phone: Start: 10-11-2021 Current tobacco non-user cad cap copd pv dm Cisco Reesman Work Phone: CP-Lhylqkkwni-Gvvc na 140 [place] Work Phone: Start: 10-11-2021 ambulatory Cara Ramos Facility :[id number] Start: 10-04-2021 ambulatory MD GIOVANNI Brumfield Facility:[id number] Start: 09-14-2021 Chart Update Cisco Reesma n Work Phone: RS-Xmtubfcbha-Lztf a Work Phone: Start: 09-11-2021 Office outpatient vi sit 25 minutes Cisco Reesman Work Phone: SZ-Fksjjhdsaf-Rrqc na 140 [place] Work Phone: Start: 06-23-2021 NPV, Provider: Cara Dorantes, Status: Pen, Time: 2:30 PM Cisco Dozier Work Phone: [facility] [facility] Work Phone: Start: 06-21-2021 Office outpatient vi sit 15 minutes Cisco Dozier Work Phone: MG-Pulm Sleep-[place] 200 Work Phone: Start: 06-21-2021 Patient encounter procedure Cisco Dozier Work Phone: [facility] [facility] Work Phone: Start: 06-07-2021 AUDIT Cisco Moore St[place] n Work Phone: FT-Evwaylbc-Okzvxv s Benítez Work Phone: Start: 06-03-2021 End: 06-08-2021 Evaluation and management of inpatient Yvan Walker [facility] Lksd 60 Rm [id number] Start: 05-17-2021 AUDIT Cisco Moore St[place] [place] Work Phone: [facility] Work Phone: Start: 05-02-2021 Office outpatient vi sit 25 minutes Cisco Dozier Work Phone: MG-Otolaryngology- [facility] 4100 Work Phone: Start: 05-02-2021 Patient encounter procedure Cisco Dozier Work Phone: MG-Otolaryngology- [place] Work Phone: Start: 04-19-2021 AUDIT Cisco Reesma n Work Phone: MG-Otolaryngology- [place] M[facility] [place] Work Phone: Start: 04-06-2021 AUDIT Cisco Reesma n Work Phone: MG-Otolaryngology- [facility] Work Phone: Start: 04-05-2021 Patient encounter procedure Cisco Dozier Work Phone: OV-Urzlnsdqr-Szzxf in 4200 Work Phone: Start: 04-05-2021 EDEL, Provider : Kailyn Michel, Status: Pen, Time: 1:00 PM Cisco A Tasia Work Phone: VJ-Jescjoofag-Wzsr n 204 [place] Work Phone: Start: 04-03-2021 Office outpatient vi sit 25 minutes Cisco A Tasia Work Phone: CP-Vaxnaatknb-Lbgo n 204 [place] Work Phone: Start: 03-22-2021 NPVPRE, Provider: Macario Bond, Status: Pen, Time: 2:00 PM Cisco A Tasia Work Phone: MG-Otolaryngology- [facility] Work Phone: Start: 03-22-2021 Office outpatient ne w 45 minutes Cisco A Tasia Work Phone: [facility] Work Phone: Start: 03-22-2021 Patient encounter procedure Cisco A Tasia Work Phone: [facility] Work Phone: Start: 03-08-2021 Chart Update Cisco A Strichardma n Work Phone: SJ-Wsxshvdgdx-Zqzw n 204 [place] Work Phone: Start: 03-07-2021 Office consultation new/estab patient 60 min Cisco A Tasia Work Phone: MG-Otolaryngology- [facility] Work Phone: Start: 03-01-2021 FUV, Provider: Rj Appiah II, Status: Pen, Time: 3:00 PM Cisco A Tasia Work Phone: JA-Jccrghrbpc-Zwgi n 204 [place] Work Phone: Start: 03-01-2021 Office outpatient ne w 45 minutes Cisco Dozier Work Phone: PF-Pwfebee-Fxfpnui Work Phone: Start: 02-27-2021 Office consultation new/estab patient 80 min Cisco Dozier Work Phone: HB-Dfvcypdrhi-Ouns n 204 [place] Work Phone: Start: 02-24-2021 Chart Update Cisco Rose n Work Phone: WG-Ttjbivnj-Rnxorg de 1500 Work Phone: Start: 01-25-2021 Office outpatient ne w 45 minutes Cisco Dozier Work Phone: WH-Ybnhjed-Vrrmbve d HC 232 [place] Work Phone: Start: 12-07-2020 Patient encounter procedure Cisco Dozier Work Phone: MP-Ftxsntde-Xtydyr de 1500 Work Phone: Procedures Date Procedure Procedure Detail Performing Clinician Start: 01-24-2022 Follow-up visit Start: 10-11-2021 Follow-up visit Start: 06-05-2021 Echocardiography Cisco Dozier Work Phone: Start: 06-04-2021 End: 06-04-2021 EKG impression Gene Lemus Arthroscopy of knee Cisco Moore Hernán serrano Work Phone: Cardiac catheterization Cisco Dozier Work Phone: Plan of Treatment Date Care Activity Detail Author Start: 03-26-2023 FUV, Provider: Nevin Li, Status: Pen, Time: 3:30 PM FUV, Provider: Nevin Li, Status: Pen, Time: 3:30 PM WV-Pvpmzfpdxk-Ypdjiv 140 [place] Work Phone: Start: 09-25-2022 FUV, Provider: Nevin Li, Status: Pen, Time: 3:45 PM FUV, Provider: Nevin Li, Status: Pen, Time: 3:45 PM ZR-Pvzawztbck-Eqjifh 140 [place] Work Phone: Start: 04-30-2022 FUVPRE, Provider: Leta Lu, Status: Pen, Time: 1:00 PM FUVPRE, Provider: Leta Lu, Status: Pen, Time: 1:00 PM [facility] Work Phone: Start: 03-28-2022 FUV, Provider: Rj Appiah II, Status: Pen, Time: 1:15 PM FUV, Provider: Rj Appiah II, Status: Pen, Time: 1:15 PM NB-Mzshldl-Nqvcctz Work Phone: Start: 03-27-2022 FUV, Provider: Nevin Li, Status: Pen, Time: 3:45 PM FUV, Provider: Nevin Li, Status: Pen, Time: 3:45 PM [facility] [facility] Work Phone: Start: 02-07-2022 FUVPRE, Provider: Ernestina Hope, Status: Pen, Time: 1:30 PM FUVPRE, Provider: Ernestina Hope, Status: Pen, Time: 1:30 PM [facility] [facility] Work Phone: Start: 01-24-2022 FUV, Provider: Nevin Li, Status: Pen, Time: 3:45 PM FUV, Provider: Nevin Li, Status: Pen, Time: 3:45 PM LG-Ckxylkvyge-Xjbxgp 140 [place] Work Phone: Start: 01-08-2022 FUVPRE, Provider: Leta Lu, Status: Pen, Time: 1:30 PM FUVPRE, Provider: Leta Lu, Status: Pen, Time: 1:30 PM [facility] Work Phone: Start: 01-08-2022 METHCHOL, Provider: [facility] FLR PFT RM1,PULM, Status: Pen, Time: 11:00 AM METHCHOL, Provider: [address] FLR PFT RM1,PULM, Status: Pen, Time: 11:00 AM [facility] Work Phone: Start: 01-08-2022 SPIROMETRY, Provider: [facility] FLR PFT RM1,PULM, Status: Pen, Time: 10:30 AM SPIROMETRY, Provider: [address] FLR PFT RM1,PULM, Status: Pen, Time: 10:30 AM [facility] Work Phone: Start: 12-08-2021 ADLTPSG, Provider: [facility] RM 2,[id number], Status: Pen, Time: 8:00 PM ADLTPSG, Provider: [facility] RM 2,[id number], Status: Pen, Time: 8:00 PM JT-Zjjylrhyl-Yyhmk 204 Work Phone: Start: 11-27-2021 FUVPRE, Provider: Leta Lu, Status: Pen, Time: 1:30 PM FUVPRE, Provider: Leta Lu, Status: Pen, Time: 1:30 PM MP-Pulmonary Medicine-[facility] Work Phone: Start: 11-14-2021 NPV, Provider: Nevin Li, Status: Pen, Time: 3:00 PM NPV, Provider: Nevin Li, Status: Pen, Time: 3:00 PM KI-Gwzgmzwcbp-Xwmlbi 140 [place] Work Phone: Start: 11-01-2021 Patient encounter procedure [facility] Start: 10-11-2021 FUV, Provider: Cara Dorantes, Status: Pen, Time: 1:30 PM FUV, Provider: Cara Dorantes, Status: Pen, Time: 1:30 PM WM-Ukyucvxgzm-Tcaowj 140 [place] Work Phone: Start: 10-04-2021 Patient encounter procedure [facility] Start: 09-22-2021 FUV, Provider: Cara Dorantes, Status: Pen, Time: 11:00 AM FUV, Provider: Cara Dorantes, Status: Pen, Time: 11:00 AM [facility] Work Phone: Start: 09-06-2021 Patient encounter procedure [facility] Start: 08-09-2021 Patient encounter procedure [facility] Start: 07-12-2021 Patient encounter procedure [facility] Start: 06-26-2021 FUV, Provider: Princess Mireille, Status: Pen, Time: 2:30 PM FUV, Provider: Princess Mireille, Status: Pen, Time: 2:30 PM AY-Taccxutnsv-Lgphm 204 DO Work Phone: Start: 06-26-2021 Patient encounter procedure [facility] Start: 06-23-2021 NPV, Provider: Cara Dorantes, Status: Pen, Time: 2:30 PM NPV, Provider: Cara Dorantes, Status: Pen, Time: 2:30 PM QB-Qcrpfaxf-Ikkxihf Benítez Work Phone: Start: 06-23-2021 Patient encounter procedure [facility] [place] Start: 06-21-2021 FUVPRE, Provider: Macario Bond, Status: Pen, Time: 1:30 PM FUVPRE, Provider: Macario Bond, Status: Pen, Time: 1:30 PM [facility] [facility] Work Phone: Start: 06-21-2021 Patient encounter procedure [facility] Start: 06-07-2021 Coronary artery disease Coronary artery disease Date: 07-Jun-2021 [facility] Start: 06-07-2021 End: 06-08-2022 Polyethylene Glycol 17 gram Oral Powder Daily PRN ; Powder for Reconstitution (MIRALAX)DOSE = 17 gram(s) Oral 2 Times a Day Start: 07-Jun-2021 End: 07-Jun-2022 Ordered: 07-Jun-2021 Leandra Pollack Intent [facility] Start: 06-05-2021 End: 06-06-2022 Albuterol 90 micrograms/ Inhalation MDI 2 inhalation Every 6 Hours PRN ; (PROVENTIL, VENTOLIN)DOSE = 2 inhalation Every 4 Hours via MDI, PRN Shortness of BreathNotes from Pharmacy: [facility] Start: 05-Jun-2021 End: 05-Jun-2022 Ordered: 05-Jun-2021 Gene Lemus [facility] Start: 06-04-2021 End: 06-04-2022 [facility] Start: 05-02-2021 FUV, Provider: Sudheer Mcfarlane, Status: Pen, Time: 9:45 AM FUV, Provider: Sudheer Mcfarlane, Status: Pen, Time: 9:45 AM [facility] Work Phone: Start: 05-02-2021 FUV, Provider: Sudheer Mcfralane, Status: Pen, Time: 9:40 AM FUV, Provider: Sudheer Mcfarlane, Status: Pen, Time: 9:40 AM ZX-Fpilhmgudmryfc-Glsy man Voice Work Phone: Start: 04-05-2021 VIRFUVDENISE, Provider: Kailyn Michel, Status: Pen, Time: 1:00 PM VIRFUVHOME, Provider: Kailyn Michel, Status: Pen, Time: 1:00 PM LD-Xrurpdhcdlzirl-Pusj man Voice Work Phone: Start: 04-03-2021 FUV, Provider: Princess Mireille, Status: Pen, Time: 2:30 PM FUV, Provider: Princess Mireille, Status: Pen, Time: 2:30 PM KE-Fsslnjqchs-Taxfz 204 DO Work Phone: Start: 03-29-2021 CYSTOSCOPY, Provider: JUDAISM UROLOGY PROCEDURE RM,[id number], Status: Pen, Time: 2:45 PM CYSTOSCOPY, Provider: JUDAISM UROLOGY PROCEDURE RM,[id number], Status: Pen, Time: 2:45 PM AN-Iukznln-Erqwomz Work Phone: Start: 03-22-2021 NPVPRE, Provider: Macario Bond, Status: Pen, Time: 2:00 PM NPVPRE, Provider: Macario Bond, Status: Pen, Time: 2:00 PM [facility] Work Phone: Start: 03-22-2021 NPV, Provider: Quita Zarate, Status: Pen, Time: 9:00 AM NPV, Provider: Quita Zarate, Status: Pen, Time: 9:00 AM HY-Wsztwxvc-Xvgtwavq 1500 Work Phone: Start: 03-07-2021 NPV, Provider: Sudheer Mcfarlane, Status: Pen, Time: 11:00 AM NPV, Provider: Sudheer Mcfarlane, Status: Pen, Time: 11:00 AM HG-Bzyfhpgfay-Ggfnj 204 DO Work Phone: Start: 03-01-2021 FUV, Provider: Rj Appiah II, Status: Pen, Time: 3:00 PM FUV, Provider: Rj Appiah II, Status: Pen, Time: 3:00 PM SI-Rzsklzhq-Gjponkvb 1500 Work Phone: Start: 02-27-2021 NPV, Provider: Princess Mireille, Status: Pen, Time: 2:00 PM NPV, Provider: Princess Mireille, Status: Pen, Time: 2:00 PM NE-Jzivhpjv-Elyeakmu 1500 Work Phone: Start: 02-22-2021 FUV, Provider: Rj Appiah II, Status: Pen, Time: 3:45 PM FUV, Provider: Rj Appiah II, Status: Pen, Time: 3:45 PM EE-Ehwftym-Lcqbiajt HC 232 DO Work Phone: Immunizations Immunization Date Immunization Notes Care Provider Antonio salter 12-22-2020 Moderna COVID-19 Vac cine 100 MCG/0.5ML Intramuscular Suspension [employer] Baltazar [employer] Work Phone: -Pulmonary Medicine-[facility] 6 Work Phone: 04-07-2020 Moderna COVID-19 Vac cine 100 MCG/0.5ML Intramuscular Suspension [employer] A Tasia Work Phone: -Pulmonary Medicine-[facility] 6 Work Phone: 03-10-2020 Moderna COVID-19 Vac cine 100 MCG/0.5ML Intramuscular Suspension [employer] Dozier Work Phone: -Pulmonary Medicine-[facility] Work Phone: 12-21-2018 Influenza, injectabl e, Madin [place] Canine Kidney, quadrivalent with preservative [employer] Dozier Work Phone: -Pulmonary Medicine-[facility] Work Phone: 12-31-2012 influenza, seasonal, injectable [employer] Dozier Work Phone: [facility] Work Phone: Payers Date Payer Category Payer Unknown [id number] 1960 Unknown [id number] [id number] 1960 Unknown [id number] 2. [id number] 1958 Unknown [id number] 2.16 [id number] 1958 Unknown [id number] 2. [id number] 1958 Unknown [id number] 2. [id number] 1958 Unknown [id number] 2.16. [id number] 1958 Unknown [id number] 2.16. [id number] 1958 Unknown [id number] 2.16 [id number] 1958 Unknown [id number] 2.16 [id number] 1958 Unknown [id number] 2.16. [id number] 1958 Unknown [id number] 2.16. [id number] 1958 Unknown [id number] 2.16. [id number] 1958 Unknown [id number] 2.16. [id number] Unknown Social History Date Type Detail Facility Current every day smoker Current every day smoker QU-Ajizrar-Nuntqxul HC 232 DO Work Phone: Tobacco smoking consumption unknown [facility] NEGATED: Highlighted row Denies Current every day smoker Denies Current every day smoker [facility] [facility] 6 Work Phone: Functional Status Date Assessment Result Facility Functional observable [facility] Mental Status Date Assessment Result Facility 06-05-2021 Cognitive functions 0227:37 [facility] Clinical Notes 02-27-2019 to 09-25-2022 <item><item><item><item><item><item><item> Note Date & Type Note Facility 09-25-2022 History of Present illness Narrative 09/25/2022: Office visitPatient is here for follow-up appointment. He is doing well since last appointment. Has some mild shortness of breath. He is being treated for parkinsonian's disorder and is on carbidopa levodopa. He denies lightheadedness dizziness or syncopal events. He is compliant with his meds. No major bleeding events. His vital signs initial blood pressure 115/73 heart rate of 67 his weight is 220 pounds.3Patient is here for follow-up. He had a bout of flu and COVID in January 2022. Has been recovering. He still has some shortness of breath. She complains of increased lower extremity edema and abdominal fullness. No orthopnea or PND he has noticed. His vital signs initial blood pressure 103/67 heart rate of 64 satting 96% on room air. XX-Hljbxxater-Ijuamb 140 [place] Work Phone: 03-27-2022 History of Present illness Narrative 03/27/2022: Office visitPatient is here for follow-up. He had a bout of flu and COVID in January 2022. Has been recovering. He still has some shortness of breath. She complains of increased lower extremity edema and abdominal fullness. No orthopnea or PND he has noticed. His vital signs initial blood pressure 103/67 heart rate of 64 satting 96% on room air.11/14/2021This is a 61-year-old male past med history notable for CAD with recent drug-eluting stent to the RCA and moderate disease in LAD which is FFR negative [0.94], history of hypertension, hyperlipidemia, tobacco usage who has been having increased shortness of breath over last several months. He had echocardiograms were normal ejection fraction with grade 1 diastolic dysfunction. He had a recent stress test to rule out progression of LAD disease which showed no evidence of ischemia. He was noted to have weight gain as he was previously placed on prednisone for over 6 months for laryngeal spasms. States that taking Lasix helps with his symptoms. He has had recent PFTs which were mildly abnormal. He is scheduled to see pulmonology in the near future. He is not endorsing chest pain today. He was started on isosorbide mononitrate 30 mg. His vital signs initial blood pressure 100/63 heart rate of 87 satting 97% on room air. His weight is 223 pounds. TM-Bmawiycpww-Byvbee 140 [place] Work Phone: 03-12-2022 History of Present illness Narrative Patient is here for yearly f/u. Most recent PSA was 0.42 on 03/12. . Prior PSA waS 0.37 on 01/08. Chronic BPH sx are mild and stable. Some urgency and frequency. Denies dysuria. Denies hematuria. Nocturia x3-4. He is taking Flomax. He has failed Gemtesa and Myrbetriq in the past. ED is not an issue. He is taking Isosorbide. XJ-Ppyfebz-Lfoveta Work Phone: 01-24-2022 History of Present illness Narrative 61 year old male with PMH of asthma (positive methacholine), laryngeal spasm, former tobacco use, NSTEMI s/p RCA stent (2021) who presents to pulmonary clinic after a recent hospitalization for pneumonia.[facility] and was told that he had pneumonia, did not require hospitalization and was discharged home. He received levofloxacin and prednisone for a week. Patient reports that everyone at home was sick in the beginning of January. Symptoms are improving now. Shortness of breath and cough have improved over the last 1 week, however not at baseline.Patient uses Symbicort twice daily along with albuterol nebulizer as needed.PMH: Asthma, CAD s/p RCA stent, laryngospasm, BPH, HLDPSH: knee surgery, thyroidectomyFH: Father with emphysemaSH: Former tobacco user: 40 year history, quit April 2021, had previously smoked a pack per day, social etoh, no illicits. 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.Methacholine Challenge test 01/08/22:Positive test with 20% drop in FEV1(between 0.5-1mg)PFT 11/01/2021:No obstruction observed (FEV1/FVC Z score -1.18), normal TLC, +gas trapping, borderline reduced DLCO, flow volume loops suggest upper airway obstruction [facility]m [facility]-[place] [address] Sleep Work Phone: 11-28-2021 History of Present illness Narrative 61 yo M with PMH of laryngeal spasm, former tobacco use, NSTEMI s/p RCA stent (2021) who presents to pulmonary clinic for SOB and wheezing.Since his RCA stent, pt denies any laryngeal spasms; however, c/o progressively worsening SOB/CAAL and wheezing since the beginning of the year. Endorses SOB at rest and with exertion. 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 MMRC 2-3. Uses albuterol nebulizer but not daily. His symptoms got worse over the weekend and he required 2-3 nebulizer treatments each day. Occasionally coughs, but mostly dry; feels like he has sputum but can't get it up. Denies any hemoptysis, weight loss. Denies any fever/chills or hospital visits for his breathing. Denies chest pain, syncope. +Orthopnea, BLE edema.PMH:CAD s/p RCA stentlaryngospasmBPHhigh cholesterolSurgical hx:knee surgerythyroidectomyFamily hx:father with emphysemaSocial:Former tobacco user: 40 year history, quit April 2021, had previously smoked a pack per daysocial [employer], outside work, for past 14 years, retired [employer]mob[employer] priorPFT 11/01/2021:No obstruction observed (FEV1/FVC Z score -1.18), normal TLC, +gas trapping, borderline reduced DLCO, flow volume loops suggest upper airway obstruction [facility]Pul[facility] [address] [place] Work Phone: 11-27-2021 History of Present illness Narrative 61 yo M with PMH of laryngeal spasm, former tobacco use, NSTEMI s/p RCA stent (2021) who presents to pulmonary clinic for SOB and wheezing.Since last visit (11/27/21), states SOB/CAAL is stable. Underwent PSG, but RNs felt that he had increased work of breathing and didn't proceed with PSG as they felt it would be unsafe with his breathing; sent him to [place] ED where he received albuterol breathing treatment. He didn't want to take prednisone burst. Continues to use albuterol nebulizer 3 times daily. Noted episode of laryngospams on 12/31, his first in 7 months or so. Endorses voice hoarseness that comes and goes; however, his notes that it's been worse this past week. +Cough though difficult to get sputum out. Improves with Vicks cough drops. Also notes changes in his lasix dosage: initially reduced (due to kidney issues) but has worsened bloating and fluid retention, so increased back to original dosing with noted improvement. Denies any fever/chills, chest pain, syncope. +Orthopnea, BLE edema. 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 priorMethacholine Challenge test 01/08/22:Positive test with 20% drop in FEV1(between 0.5-1mg)PFT 11/01/2021:No obstruction observed (FEV1/FVC Z score -1.18), normal TLC, +gas trapping, borderline reduced DLCO, flow volume loops suggest upper airway obstruction MG[facility]ul [facility] Work Phone: 11-27-2021 History of Present illness Narrative 61 yo M with PMH of laryngeal spasm, former tobacco use, NSTEMI s/p RCA stent (2021) who presents to pulmonary clinic for SOB and wheezing.Since his RCA stent, pt denies any laryngeal spasms; however, c/o progressively worsening SOB/CAAL and wheezing since the beginning of the year. Endorses SOB at rest and with exertion. 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 MMRC 2-3. Uses albuterol nebulizer but not daily. His symptoms got worse over the weekend and he required 2-3 nebulizer treatments each day. Occasionally coughs, but mostly dry; feels like he has sputum but can't get it up. Denies any hemoptysis, weight loss. Denies any fever/chills or hospital visits for his breathing. Denies chest pain, syncope. 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 He had echocardiograms were normal ejection fraction with grade 1 diastolic dysfunction. He had a recent stress test to rule out progression of LAD disease which showed no evidence of ischemia. He was noted to have weight gain as he was previously placed on prednisone for over 6 months for laryngeal spasms. States that taking Lasix helps with his symptoms. He has had recent PFTs which were mildly abnormal. He is scheduled to see pulmonology in the near future. He is not endorsing chest pain today. He was started on isosorbide mononitrate 30 mg. His vital signs initial blood pressure 100/63 heart rate of 87 satting 97% on room air. His weight is [address] Work Phone: 11-14-2021 History of Present illness Narrative 11/14/2021: Office visitThihernán is a 61-year-old male past med history notable for CAD with recent drug-eluting stent to the RCA and moderate disease in LAD which is FFR negative [0.94], history of hypertension, hyperlipidemia, tobacco usage who has been having increased shortness of breath over last several months. He had echocardiograms were normal ejection fraction with grade 1 diastolic dysfunction. He had a recent stress test to rule out progression of LAD disease which showed no evidence of ischemia. He was noted to have weight gain as he was previously placed on prednisone for over 6 months for laryngeal spasms. States that taking Lasix helps with his symptoms. He has had recent PFTs which were mildly abnormal. He is scheduled to see pulmonology in the near future. He is not endorsing chest pain today. He was started on isosorbide mononitrate 30 mg. His vital signs initial blood pressure 100/63 heart rate of 87 satting 97% on room air. His weight is 223 pounds. [facility] Work Phone: 10-11-2021 History of Present illness Narrative 10/11/2021: Mr Dumont is here for a second acute visit for complaints of feeling fatigues, weak and very short of breath. This is progressively getting worse since his cardiac catheterization. His weight is up 4 lbs since I saw him last. His BP and HR are well controlled and his pulse ox is 95% on room air.09/12/2021: Mr Dumont is here for an acute visit for complaints of feeling weak, lethargic and very short of breath he denies any complaints of chest pain, dizziness, syncope or lower extremity edema, He did not under go cardiac rehab as prescribed. He is not active and feels he has no energy to do anything since under going his PCI.June 23, 2021: Mr Dumont is a 66 year old male with PMH of laryngeal spasms, Graves disease S/P thyroidectomy, elevated IgE levels, nicotine dependence, here following hospitalization for acute on chronic diastolic heart failure and coronary artery disease.To work up the shortness of breath and confirm/ rule out CHF, he underwentecho. Echo showed normal LV systolic function with 55-60% EF and no LVhypertrophy. Doppler showed impaired relaxation pattern of LV diastolicfilling. A CT coronary calcium screen due to the elevated troponins showed nearcomplete occlusion of the RCA in the midportion, nonobstructive CAD involvingthe LAD and LCX causing less than 50% stenosis, and total calcium score 225.Based on these findings, patient was taken to cardiac catheterization. Resultsof his left heart cath showed moderate 40-50% proximal LAD stenosis, LVEDP 25mmHg end-expiration, 95% thrombotic appearing mid RCA stenosis (culprit forNSTE-ACS presentation). A drug eluting stent was placed in the RCA. Given theLVEDP of 25, he was further diuresed in the hospital and sent home with PRNLasix for weight gain with daily weight checks.He was started on aspirin, high intensity atorvastatin, clopidogrel, ezetimibe,and losartan. He will follow up with his PCP, Cardiology, and specialistspreviously seen for layngeal spasms.He is complaining of severe muscle pains since his cardiac catheterization that is preventing him from walking. The pain is sos severe that he is not able to sleep at night. (He was started on atorvastatin 80mg following his cath). DU-Pnplvdmazk-Shunxn 140 [place] Work Phone: 10-04-2021 Note Clinic Note: Education Assessment: Learning BarriersNo barriers TaughtPatient Primary Language of PatientEnglish Primary Language of [place] LearnerEnglish Infusion: Topic(s): InfusionFollow-up plan, Infusion orientation/routine, Lab results MethodVerbal, Teach-Back EvaluationTeaches back, States general concept Electronic Signatures: Braeden Armstrong (PETER) (Signed 04-Oct-2021 12:39) Authored: Education Assessment, Infusion Last Updated: 04-Oct-2021 12:39 by Braeden Armstrong (PETER) [facility] 10-04-2021 Note Clinic Note: Education Assessment: Learning BarriersNo barriers TaughtPatient Primary Language of PatientEnglish Primary Language of [place] LearnerEnglish Infusion: Topic(s): InfusionIV access, Lab results MethodTeach-Back EvaluationTeaches back IV Access: Topic(s): IV AccessPeripheral Sites MethodTeach-Back EvaluationTeaches back Safety: Topic(s): SafetyFalls Prevention, Safety at Home MethodTeach-Back EvaluationTeaches back Electronic Signatures: Melonie Alva (RN) (Signed 04-Oct-2021 12:23) Authored: Education Assessment, Infusion, IV Access, Safety Last Updated: 04-Oct-2021 12:23 by Melonie Alva (RN) [facility] 09-12-2021 History of Present illness Narrative 09/12/2021: Mr Dumont is here for an acute visit for complaints of feeling weak, lethargic and very short of breath he denies any complaints of chest pain, dizziness, syncope or lower extremity edema, He did not under go cardiac rehab as prescribed. He is not active and feels he has no energy to do anything since under going his PCI.June 23, 2021: Mr Dumont is a 66 year old male with PMH of laryngeal spasms, Graves disease S/P thyroidectomy, elevated IgE levels, nicotine dependence, here following hospitalization for acute on chronic diastolic heart failure and coronary artery disease.To work up the shortness of breath and confirm/ rule out CHF, he underwentecho. Echo showed normal LV systolic function with 55-60% EF and no LVhypertrophy. Doppler showed impaired relaxation pattern of LV diastolicfilling. A CT coronary calcium screen due to the elevated troponins showed nearcomplete occlusion of the RCA in the midportion, nonobstructive CAD involvingthe LAD and LCX causing less than 50% stenosis, and total calcium score 225.Based on these findings, patient was taken to cardiac catheterization. Resultsof his left heart cath showed moderate 40-50% proximal LAD stenosis, LVEDP 25mmHg end-expiration, 95% thrombotic appearing mid RCA stenosis (culprit forNSTE-ACS presentation). A drug eluting stent was placed in the RCA. Given theLVEDP of 25, he was further diuresed in the hospital and sent home with PRNLasix for weight gain with daily weight checks.He was started on aspirin, high intensity atorvastatin, clopidogrel, ezetimibe,and losartan. He will follow up with his PCP, Cardiology, and specialistspreviously seen for layngeal spasms.He is complaining of severe muscle pains since his cardiac catheterization that is preventing him from walking. The pain is sos severe that he is not able to sleep at night. (He was started on atorvastatin 80mg following his cath). HH-Msfxirvrlb-Fpeoif 140 [place] Work Phone: 04-05-2021 Reason for visit Narrative An interactive audio and video telecommunication system which permits real time communications between the patient (at the originating site) and provider (at the distant site) was utilized to provide this telehealth service.Verbal consent was requested and obtained from FREDDIE DUMONT on this date, 04/05/2021 01:00 PM , for a telehealth visit.Virtual Voice YAMILEV AdultTorsten for referral: SOB, laryngospasmRehab Dx: J38.3, R49.0, J38.5 YZ-Efioponbt-Qvnroyy 4200 Work Phone: 04-03-2021 History of Present illness Narrative Interval history, 04/03/21: Since last visit, he has been doing well. He presents with his for today's visit. He states that he is seeing ENT and pulmonary. 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 He just finished antifungal therapy. He is decreased his prednisone from 20 mg daily to 15 mg daily about 9 days ago. He still having very mild laryngeal spasms. He has started laryngeal control therapy, and states that he has been using the breathing exercises which essentially abort the episodes. He is also taking Gaviscon along with his PPI. He states that he is running out of the omeprazole soon. He has not had any swelling of the lips or tongue, and no angioedema episodes. His is helping to remind him to do the breathing exercises. None of the episodes last more than a couple minutes.He notes that he is can had continued shortness of breath since his RSV infection in January. He is going to schedule a CT scan for the lungs. He has also done phlebotomy for hematology since last visit.Initial visit, 02-27-21: Mr. FREDDIE DUMONT presents for initial evaluation today. Referred by: Dr. Giovanni Cantu. He and his provide the following history:Mr. Dumont was referred by Dr. Cantu in Hematology for evaluation of angioedema. He states that the symptoms started 2 years ago. He states that he got a sensation of difficulty breathing. He denies throat tightness, but his has noticed associated cough and hoarseness. He has not had any associated rash, pruritus, lip or tongue swelling. 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 It didn't occur again for a long time, then started happening again. The symptoms have occurred about once monthly since July 2020. He states that it occurs at different times, can just be sitting, sometimes is working, but can occur randomly. Once he was near a fire station and he walked over and they gave him oxygen and symptoms relieved within minutes, and he went right back to work. He has not received an epinephrine ever for his symptoms. He has gone to the ER in [place] a few times. He states that sometimes by the time he called EMS and they arrived, symptoms have already resolved spontaneously. He states that they have not seen swelling there to his knowledge. He first saw GI, Dr. Beauchamp and had and EGD, and states that he had a a reaction and had did have brief symptoms where swelling was associated right before the procedure, but they were able to continue and do the EGD. He saw ENT (Dr. Bobby Chavez) in [place] and had a rhinoscopy and didn't recall any abnormal findings. Was referred to a digital marketing executive but never had an appointment scheduled. He has also seen Pulmonary, Dr. Greman Nayak and had PFT's and 6 minute walk performed 1 month ago. He is unaware of the results.He is currently on prednisone which he has been on since November 2020. He states that he was on 20 mg of prednisone daily, and then he cut back to 15 mg, he felt like it made things worse. He restarted on 20 mg, but still had another episode on February 12 despite being on the prednisone.Regarding his last episode on February 12: He states that he woke in the middle the night with difficulty breathing, sound of wheezing coming from his throat, cough and hoarseness. He states that he took an albuterol treatment which helped him cough more and breathe normally. The symptoms resolved in 5-10 minutes. He notes that in general all of his episodes resolve within minutes. He has never had prolonged episodes. Sometimes episodes resolve just by sitting and calm breathing. Of note, states that he had an RSV infection that he got from his granddaughter a few weeks before this episode occurred he had been coughing the entire month of January. His past medical history is significant for Graves' disease. He states that he had an extensive thyroid surgery years ago. He is now on Synthroid.He notes that he started drooling more, this is unrelated to his throat episodes. The drooling seems to correlate from when he started taking prednisone. He denies taking any supplements. He stopped his statin. He takes Tylenol for pain. He used to take ibuprofen and Aleve, but he has not taken them in almost a year.He notes that he has gained weight since starting prednisone, and has had a significant appetite since starting prednisone.Denies any throat symptoms, difficulty breathing after the ingestion of beef or mammalian meat products.In terms of evaluation to date, he has had normal C4, C1 esterase inhibitor quantitative and functional levels. He is undergoing further evaluation with genetics assays for C1INH, HK, FXII, plasminogen, angiopoietin, myoferlin, and heparan sulfate (HS)-glucosamine 3- O -sulfotransferase 6 as well as immunoblots for C1INH, HK, FXII, and PK.Rhinitis: Denies history of environmental allergies, hayfever, rhinitis symptomsAsthma: Denies history of asthmaEczema: Diagnosed with eczema 15-20 years ago, flares when he gets hot. 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 Also has Parkinson's. GN-Hzwzolzupv-Ghwzn 204 DO Work Phone: 03-07-2021 History of Present illness Narrative This is a 60 year old male previously seen by me on 03/07/2021 with a history of SOB, voice changes, and significant cough with no triggers seen. He was found to have MTD and laryngeal candidiasis. He was being worked up for angioedema by allergy. He was noted to have improvement in his symptoms.He reports that he had an episode of wheezing yesterday. This has improved from last month. He has been working with [employer] on respiratory retraining.Recall: 03/07/2021 FREDDIE DUMONT is a 60 year old male with SOB and concern for angioedema referred to me today by Dr. Kendrick from allergy/immunology. He had normal C4 and C1 esterace labs and also complains of voice changes and chronic cough in addition to SOB. He was seen by Dr. Chavez with no concern per report.He reports that he has episodes of breathlessness. These happen randomly. The last episode was 02/12/21 while sleeping. These episodes last for 10-15 minutes with wheezing. He uses an albuterol inhaler which manages these episodes. He denies LOC or syncopal episodes. He resumes his activities 30 minutes later. His voice is raspy that has worsened. Today, his voice sounds slightly raspy, per his report.Denies fevers, chills, night sweats, nausea/vomiting, wt loss or hemoptysis. No complaints of otalgia.Denies facial pain, pressure or headaches.Denies chronic nasal congestion, stuffiness or postnasal drainage.PMH: Reviewed EHR record/intake - pertinent Hx includes: BPH, ED,PSHx: Reviewed. Includes: knee surgery x2, thyroid surgery in 1998.Social:Lives in: a farmTobacco: Current smokerDenies other drug use.FHx: reviewed. Includes: Emphysema TB-Xtabilhstgvluo-[place] Work Phone: 03-07-2021 History of Present illness Narrative This is a 60 year old male previously seen by me on 03/07/2021 with a history of SOB, voice changes, and significant cough with no triggers seen. He was found to have MTD and laryngeal candidiasis. He was being worked up for angioedema by allergy. He was noted to have improvement in his symptoms.He reports that he had an episode of wheezing yesterday. This has improved from last month. He has been working with [employer] on respiratory retraining.Recall: 03/07/2021 FREDDIE DUMONT is a 60 year old male with SOB and concern for angioedema referred to me today by Dr. Kendrick from allergy/immunology. He had normal C4 and C1 esterace labs and also complains of voice changes and chronic cough in addition to SOB. He was seen by Dr. Chavez with no concern per report.He reports that he has episodes of breathlessness. These happen randomly. The last episode was 02/12/21 while sleeping. These episodes last for 10-15 minutes with wheezing. He uses an albuterol inhaler which manages these episodes. He denies LOC or syncopal episodes. He resumes his activities 30 minutes later. His voice is raspy that has worsened. Today, his voice sounds slightly raspy, per his report.Denies fevers, chills, night sweats, nausea/vomiting, wt loss or hemoptysis. No complaints of otalgia.Denies facial pain, pressure or headaches.Denies chronic nasal congestion, stuffiness or postnasal drainage.PMH: Reviewed EHR record/intake - pertinent Hx includes: BPH, ED,PSHx: Reviewed. Includes: knee surgery x2, thyroid surgery in 1998.Social:Lives in: a farmTobacco: Current smokerDenies other drug use.FHx: reviewed. Includes: Emphysema VD[facility] Work Phone: 02-12-2021 History of Present illness Narrative FREDDIE DUMONT is a 60 year old male with SOB and concern for angioedema referred to me today by Dr. Kendrick from allergy/immunology. He had normal C4 and C1 esterace labs and also complains of voice changes and chronic cough in addition to SOB. He was seen by Dr. Chavez with no concern per report.He reports that he has episodes of breathlessness. These happen randomly. The last episode was 02/12/21 while sleeping. These episodes last for 10-15 minutes with wheezing. He uses an albuterol inhaler which manages these episodes. He denies LOC or syncopal episodes. He resumes his activities 30 minutes later. His voice is raspy that has worsened. Today, his voice sounds slightly raspy, per his report.Denies fevers, chills, night sweats, nausea/vomiting, wt loss or hemoptysis. No complaints of otalgia.Denies facial pain, pressure or headaches.Denies chronic nasal congestion, stuffiness or postnasal drainage.PMH: Reviewed EHR record/intake - pertinent Hx includes: BPH, ED,PSHx: Reviewed. Includes: knee surgery x2, thyroid surgery in 1998.Social:Lives in: a farmTobacco: Current smokerDenies other drug use.FHx: reviewed. Includes: Emphysema GS-Pizreoldxaloeo-Cuhr man Voice Work Phone: 01-08-2021 History of Present illness Narrative Patient presents to the office today to Establish with Urinary Frequency and Weak Stream. LUTs are chronic and mild. Having frequency and urgency , doesn't believe he is emptying his bladder completely. Dribbling and some urge incontinence.. Denies dysuria and hematuria.. Nocturia x1.. Most recent PSA was (01/08) and was 0.37. No Fm Hx of Prostate CA.No Bone Pain. No Recent Weight Gain/Loss. Caffeine does worsen LUTs.. Taking Flomax for LUTs but doesn't notice a difference. ..No Hx of Kidney Stones. Hx of UTI's. Years ago.. ED is not an issue ZS-Temguvt-Wlxsjonx HC 232 DO Work Phone: 01-08-2021 History of Present illness Narrative Patient is here for 1 mo medication f/u. Patient was given Myrbetriq 25mg last visit. He states this did not help. He then was placed on Gemtesa and had an allergic reaction (rash and difficulty breathing) .. He is having a lot of frequency and urgency during the daytime. Denies dysuria. Denies hematuria. Nocturia x2-3. He was taking Flomax and just recently started back and states this helps some. Most recent PSA was (01/08) and was 0.37. No Fm Hx of Prostate CA.. ED is not an issue CI-Ykiydan-Mcniypx Work Phone: 07-04-2019 History of Present illness Narrative 60 yo male with breathing problems for last 2 years.Previously treated for GERD and laryngeal spasm. Presented on chronic steroids for the laryngeal spasm given initial concern for angioedema.Today: Since last visit, saw Dr. Mcfarlane, with improvement in larynx. Saw allergy. Off prednisone now. Then had gone to the hospital with volume overload, and at the hospital, found to have STEMI with RCA stent.Today, breathing is feeling well. States since the stent was placed, he has had no problems with breathing. No issues with vocal cord spasms. Last one was the day before his admission, which started on June 03. Previously had had them every couple weeks. Not able to do more yet at home with leg pain. Achy leg pain mostly in his left leg. Quit smoking end of April.per osh pft's, no obstruction, ?small airway disease, FEV1 71%, DLCO normal, TLC normal done 02/06/PMH:laryngospasmBPHhigh cholesterolSurgical hx:knee surgerythyroidectomyFamily hx:father with emphysemaSocial:Current tobacco user: 40 year history, down to half a pack a day, quit April 2021, had previously smoked a [employer], outside work, for past 14 yearsmeat cutter priorpbart[place] meds: [facility] 200 Work Phone: 06-24-2019 History of Present illness Narrative 60 yo male with breathing problems for last 2 years.Previously treated for GERD and laryngeal spasm. Presented on chronic steroids for the laryngeal spasm given initial concern for angioedema.Today: Since last visit, saw Dr. Mcfarlane, with improvement in larynx. Saw allergy. Off prednisone now. Then had gone to the hospital with volume overload, and at the hospital, found to have STEMI with RCA stent.Today, breathing is feeling well. States since the stent was placed, he has had no problems with breathing. No issues with vocal cord spasms. Last one was the day before his admission, which started on June 03. Previously had had them every couple weeks. Not able to do more yet at home with leg pain. Achy leg pain mostly in his left leg. Quit smoking end of April.per osh pft's, no obstruction, ?small airway disease, FEV1 71%, DLCO normal, TLC normal done 02/06/PMH:laryngospasmBPHhigh cholesterolSurgical hx:knee surgerythyroidectomyFamily hx:father with emphysemaSocial:Current tobacco user: 40 year history, down to half a pack a day, quit April 2021, had previously smoked a packsocial [employer], outside work, for past 14 yearsmeat cutter priorpulm meds: MG-Pul[facility]-[place] [facility] Work Phone: 06-23-2019 History of Present illness Narrative 60 yo male with breathing problems for last 2 years. Since July has had 1x episode a month where he feels like his throat closes and he can't breath. Last episode happened in the morning. Albuterol helps, and he can breath after that. 10 minutes or so is how long the episodes last at home. Turns purple. He's had to go to the hospital twice, but by the time he gets to the hospital, everything is better. Has seen a telecommunications project manager and had endoscopy. Was being worked up for antacid.Takes prednisone daily. 20 mg. Had attacks when trying to wean off. Was tried to take 15mg.Today: Since last visit, saw Dr. Mcfarlane, with improvement in larynx. Saw allergy. Off prednisone now. Then had gone to the hospital with volume overload, and at the hospital, found to have STEMI with RCA stent.Today, breathing is feeling well. States since the stent was placed, he has had no problems with breathing. No issues with vocal cord spasms. Last one was the day before his admission, which started on June 03. Previously had had them every couple weeks. Not able to do more yet at home with leg pain. Achy leg pain mostly in his left leg. Quit smoking end of April.Smoker, trying to quit on his own, doesn't want medication assistance, but will reach out if he changes his mind.per osh pft's, no obstruction, ?small airway disease, FEV1 71%, DLCO normal, TLC normal done 02/06/21PMH:laryngospasmBPHhigh cholesterolSurgical hx:knee surgerythyroidectomyFamily hx:father with emphysemaSocial:Current tobacco user: 40 year history, down to half a pack a day, trying to quit, had previously smoked a packsocial [employer] company, outside work, for past 14 yearsmeat cutter priorpulm meds: [facility]-[place] [facility] Work Phone: 03-24-2019 History of Present illness Narrative 60 yo male with breathing problems for last 2 years. Since July has had 1x episode a month where he feels like his throat closes and he can't breath. Last episode happened in the morning. Albuterol helps, and he can breath after that. 10 minutes or so is how long the episodes last at home. Turns purple. He's had to go to the hospital twice, but by the time he gets to the hospital, everything is better. Has seen a telecommunications project manager and had endoscopy. Was being worked up for antacid.Takes prednisone daily. 20 mg. Had attacks when trying to wean off. Was tried to take 15mg.Had an RSV infection.Smoker, trying to quit on his own, doesn't want medication assistance, but will reach out if he changes his mind.per osh pft's, no obstruction, ?small airway disease, FEV1 71%, DLCO normal, TLC normal done 02/06/21PMH:laryngospasmBPHhigh cholesterolSurgical hx:knee surgerythyroidectomyFamily hx:father with emphysemaSocial:Current tobacco user: 40 year history, down to half a pack a day, trying to quit, had previously smoked a packsocial [employer] company, outside work, for past 14 yearsmeat cutter priorpulm meds: [facility]-[place] [facility] Work Phone: 03-22-2019 History of Present illness Narrative 60 yo male with breathing problems for last 2 years. Since July has had 1x episode a month where he feels like his throat closes and he can't breath. Last episode happened in the morning. Albuterol helps, and he can breath after that. 10 minutes or so is how long the episodes last at home. Turns purple. He's had to go to the hospital twice, but by the time he gets to the hospital, everything is better. Has seen a telecommunications project manager and had endoscopy. Was being worked up for antacid.Takes prednisone daily. 20 mg. Had attacks when trying to wean off. Was tried to take 15mg.Had an RSV infection.Smoker, trying to quit on his own, doesn't want medication assistance, but will reach out if he changes his mind.per osh pft's, no obstruction, ?small airway disease, FEV1 71%, DLCO normal, TLC normal done 02/06/PMH:laryngospasmBPHhigh cholesterolSurgical hx:knee surgerythyroidectomyFamily hx:father with emphysemaSocial:Current tobacco user: 40 year history, down to half a pack a day, trying to quit, had previously smoked a [employer], outside work, for past 14 yearsmeat cutter priorpulm meds: MG-Pul[facility]-[place] [facility] 6 Sleep Work Phone: 03-08-2019 History of Present illness Narrative Mr. FREDDIE DUMONT presents for initial evaluation today. Referred by: Dr. Giovanni Cantu. He and his provide the following history:Mr. Dumont was referred by Dr. Cantu in Hematology for evaluation of angioedema. He states that the symptoms started 2 years ago. He states that he got a sensation of difficulty breathing. He denies throat tightness, but his has noticed associated cough and hoarseness. He has not had any associated rash, pruritus, lip or tongue swelling. 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 It didn't occur again for a long time, then started happening again. The symptoms have occurred about once monthly since July 2020. He states that it occurs at different times, can just be sitting, sometimes is working, but can occur randomly. Once he was near a fire station and he walked over and they gave him oxygen and symptoms relieved within minutes, and he went right back to work. He has not received an epinephrine ever for his symptoms. He has gone to the ER in [place] a few times. He states that sometimes by the time he called EMS and they arrived, symptoms have already resolved spontaneously. He states that they have not seen swelling there to his knowledge. He first saw GI, Dr. Beauchamp and had and EGD, and states that he had a a reaction and had did have brief symptoms where swelling was associated right before the procedure, but they were able to continue and do the EGD. He saw ENT (Dr. Bobby Chavez) in [place] and had a rhinoscopy and didn't recall any abnormal findings. Was referred to a digital marketing executive but never had an appointment scheduled. He has also seen Pulmonary, Dr. German Nayak and had PFT's and 6 minute walk performed 1 month ago. He is unaware of the results.He is currently on prednisone which he has been on since November 2020. He states that he was on 20 mg of prednisone daily, and then he cut back to 15 mg, he felt like it made things worse. He restarted on 20 mg, but still had another episode on February 12 despite being on the prednisone.Regarding his last episode on February 12: He states that he woke in the middle the night with difficulty breathing, sound of wheezing coming from his throat, cough and hoarseness. He states that he took an albuterol treatment which helped him cough more and breathe normally. The symptoms resolved in 5-10 minutes. He notes that in general all of his episodes resolve within minutes. He has never had prolonged episodes. Sometimes episodes resolve just by sitting and calm breathing. Of note, states that he had an RSV infection that he got from his granddaughter a few weeks before this episode occurred he had been coughing the entire month of January. His past medical history is significant for Graves' disease. He states that he had an extensive thyroid surgery years ago. He is now on Synthroid.He notes that he started drooling more, this is unrelated to his throat episodes. The drooling seems to correlate from when he started taking prednisone. He denies taking any supplements. He stopped his statin. He takes Tylenol for pain. He used to take ibuprofen and Aleve, but he has not taken them in almost a year.He notes that he has gained weight since starting prednisone, and has had a significant appetite since starting prednisone.Denies any throat symptoms, difficulty breathing after the ingestion of beef or mammalian meat products.In terms of evaluation to date, he has had normal C4, C1 esterase inhibitor quantitative and functional levels. He is undergoing further evaluation with genetics assays for C1INH, HK, FXII, plasminogen, angiopoietin, myoferlin, and heparan sulfate (HS)-glucosamine 3- O -sulfotransferase 6 as well as immunoblots for C1INH, HK, FXII, and PK.Rhinitis: Denies history of environmental allergies, hayfever, rhinitis symptomsAsthma: Denies history of asthmaEczema: Diagnosed with eczema 15-20 years ago, flares when he gets hot. 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 Also has Parkinson's. [facility] Work Phone: 03-01-2019 History of Present illness Narrative Mr. FREDDIE DUMONT presents for initial evaluation today. Referred by: Dr. Giovanni Cantu. He and his provide the following history:Mr. Dumont was referred by Dr. Cantu in Hematology for evaluation of angioedema. He states that the symptoms started 2 years ago. He states that he got a sensation of difficulty breathing. He denies throat tightness, but his has noticed associated cough and hoarseness. He has not had any associated rash, pruritus, lip or tongue swelling. 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 It didn't occur again for a long time, then started happening again. The symptoms have occurred about once monthly since July 2020. He states that it occurs at different times, can just be sitting, sometimes is working, but can occur randomly. Once he was near a fire station and he walked over and they gave him oxygen and symptoms relieved within minutes, and he went right back to work. He has not received an epinephrine ever for his symptoms. He has gone to the ER in [place] a few times. He states that sometimes by the time he called EMS and they arrived, symptoms have already resolved spontaneously. He states that they have not seen swelling there to his knowledge. He first saw GI, Dr. Beauchamp and had and EGD, and states that he had a a reaction and had did have brief symptoms where swelling was associated right before the procedure, but they were able to continue and do the EGD. He saw ENT (Dr. Bobby Chavez) in [place] and had a rhinoscopy and didn't recall any abnormal findings. Was referred to a digital marketing executive but never had an appointment scheduled. He has also seen Pulmonary, Dr. German Nayak and had PFT's and 6 minute walk performed 1 month ago. He is unaware of the results.He is currently on prednisone which he has been on since November 2020. He states that he was on 20 mg of prednisone daily, and then he cut back to 15 mg, he felt like it made things worse. He restarted on 20 mg, but still had another episode on February 12 despite being on the prednisone.Regarding his last episode on February 12: He states that he woke in the middle the night with difficulty breathing, sound of wheezing coming from his throat, cough and hoarseness. He states that he took an albuterol treatment which helped him cough more and breathe normally. The symptoms resolved in 5-10 minutes. He notes that in general all of his episodes resolve within minutes. He has never had prolonged episodes. Sometimes episodes resolve just by sitting and calm breathing. Of note, states that he had an RSV infection that he got from his granddaughter a few weeks before this episode occurred he had been coughing the entire month of January. His past medical history is significant for Graves' disease. He states that he had an extensive thyroid surgery years ago. He is now on Synthroid.He notes that he started drooling more, this is unrelated to his throat episodes. The drooling seems to correlate from when he started taking prednisone. He denies taking any supplements. He stopped his statin. He takes Tylenol for pain. He used to take ibuprofen and Aleve, but he has not taken them in almost a year.He notes that he has gained weight since starting prednisone, and has had a significant appetite since starting prednisone.Denies any throat symptoms, difficulty breathing after the ingestion of beef or mammalian meat products.In terms of evaluation to date, he has had normal C4, C1 esterase inhibitor quantitative and functional levels. He is undergoing further evaluation with genetics assays for C1INH, HK, FXII, plasminogen, angiopoietin, myoferlin, and heparan sulfate (HS)-glucosamine 3- O -sulfotransferase 6 as well as immunoblots for C1INH, HK, FXII, and PK.Rhinitis: Denies history of environmental allergies, hayfever, rhinitis symptomsAsthma: Denies history of asthmaEczema: Diagnosed with eczema 15-20 years ago, flares when he gets hot. 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 Also has Parkinson's. [facility] Work Phone: 02-27-2019 History of Present illness Narrative Mr. FREDDIE DUMONT presents for initial evaluation today. Referred by: Dr. Giovanni Cantu. He and his provide the following history:Mr. Dumont was referred by Dr. Cantu in Hematology for evaluation of angioedema. He states that the symptoms started 2 years ago. He states that he got a sensation of difficulty breathing. He denies throat tightness, but his has noticed associated cough and hoarseness. He has not had any associated rash, pruritus, lip or tongue swelling. 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 It didn't occur again for a long time, then started happening again. The symptoms have occurred about once monthly since July 2020. He states that it occurs at different times, can just be sitting, sometimes is working, but can occur randomly. Once he was near a fire station and he walked over and they gave him oxygen and symptoms relieved within minutes, and he went right back to work. He has not received an epinephrine ever for his symptoms. He has gone to the ER in [place] a few times. He states that sometimes by the time he called EMS and they arrived, symptoms have already resolved spontaneously. He states that they have not seen swelling there to his knowledge. He first saw GI, Dr. Beauchamp and had and EGD, and states that he had a a reaction and had did have brief symptoms where swelling was associated right before the procedure, but they were able to continue and do the EGD. He saw ENT (Dr. Bobby Chavez) in [place] and had a rhinoscopy and didn't recall any abnormal findings. Was referred to a digital marketing executive but never had an appointment scheduled. He has also seen Pulmonary, Dr. German Nayak and had PFT's and 6 minute walk performed 1 month ago. He is unaware of the results.He is currently on prednisone which he has been on since November 2020. He states that he was on 20 mg of prednisone daily, and then he cut back to 15 mg, he felt like it made things worse. He restarted on 20 mg, but still had another episode on February 12 despite being on the prednisone.Regarding his last episode on February 12: He states that he woke in the middle the night with difficulty breathing, sound of wheezing coming from his throat, cough and hoarseness. He states that he took an albuterol treatment which helped him cough more and breathe normally. The symptoms resolved in 5-10 minutes. He notes that in general all of his episodes resolve within minutes. He has never had prolonged episodes. Sometimes episodes resolve just by sitting and calm breathing. Of note, states that he had an RSV infection that he got from his granddaughter a few weeks before this episode occurred he had been coughing the entire month of January. His past medical history is significant for Graves' disease. He states that he had an extensive thyroid surgery years ago. He is now on Synthroid.He notes that he started drooling more, this is unrelated to his throat episodes. The drooling seems to correlate from when he started taking prednisone. He denies taking any supplements. He stopped his statin. He takes Tylenol for pain. He used to take ibuprofen and Aleve, but he has not taken them in almost a year.He notes that he has gained weight since starting prednisone, and has had a significant appetite since starting prednisone.Denies any throat symptoms, difficulty breathing after the ingestion of beef or mammalian meat products.In terms of evaluation to date, he has had normal C4, C1 esterase inhibitor quantitative and functional levels. He is undergoing further evaluation with genetics assays for C1INH, HK, FXII, plasminogen, angiopoietin, myoferlin, and heparan sulfate (HS)-glucosamine 3- O -sulfotransferase 6 as well as immunoblots for C1INH, HK, FXII, and PK.Rhinitis: Denies history of environmental allergies, hayfever, rhinitis symptomsAsthma: Denies history of asthmaEczema: Diagnosed with eczema 15-20 years ago, flares when he gets hot. 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 Also has Parkinson's. [id number] DO Work Phone: Evaluation note Skin: Warm, Rt Radia l access site clean, soft, no oozing or swelling noted, minimal tenderness to palpation. Bandage replacedEyes: EOMI, clear sclera, wears corrective lensesENMT: mucous membranes moist, no apparent injury, no lesions seenHead/Neck: Neck supple, no apparent injury, No JVDGastrointestinal: Nondistended, obesity, soft, non-tender, no rebound tenderness or guardingCardiovascular: RRR, 2+ equal pulses of the extremitiesExtremities: Bilateral extremities with minimal edemaPsychological: Appropriate mood and behaviorRespiratory/Thorax: Rales and crackles bilaterally, with good chest expansionConstitutional: Well developed, awake/alert/oriented x3, no distress and cooperative [facility] History of Present illness Narrative Patient presents to voice therapy session for respiratory retraining. Reports x4 mini breathing episodes since previous visit. One being at night when sleeping with the others occurring at different times during the day. In each episode, patient was able to quickly resolve his breathing pattern and return to healthy baseline with RTB + transition to straw breathing. He has been adherent to gaviscon use but found to not be in compliance with medication timing re:PPI. Provided education on PPI use and instructed to take x30-45 minutes prior to PO with patient verbalizing agreement and understanding. ? reflux trigger. Patient to be d/c'ed from services at this time 2/2 indep with HEP, respiratory control. Patient to follow-up with my laryngology colleague in mid-April. May benefit from GI referral. [id number] Work Phone: Hospital Discharge instructions Activity:activity as tolerated. May shower.Additional Orders:Additional Instructions: Mr. Dumont,It was a pleasure caring for you. You came in for swelling of your legs. We used some medications to get some extra water off of your legs. We also decided to do some heart tests so see if that was a cause of the water build-up. Those tests showed a blockage in one of vessels that supplies blood to your heart. You got a procedure to place a stent in that vessel to open the flow up again. You will go home with new medicines for your heart as well as Lasix, the water pill. The water pill should be used only as needed. You will need to check your weights every day. If you gain 2 pounds overnight or notice that you have gained 3 pounds from your normal weight, take one Lasix pill. You will need to follow up with your PCP in 1-2 weeks, Cardiology (appointment has been booked for you), and the specialists you were seeing for your laryngeal spasm. Take care, [facility] Medicine Team1. DAPT with aspirin and Plavix uninterrupted for 12 months given NSTE-ACS presentation2. Radial artery access recovery protocol3. Continue high-intensity statin therapy4. Continue beta shahid therapy for at least 3 years given NSTE-ACS presentation 5. Refer to cardiac rehabilitation on dischargeCall Provider If:Breathing faster than normal. Breathing harder than normal or having retractions. Not being able to go 4-6 hours between albuterol treatments. Any new concerning symptoms. Chest discomfort, difficulty breathing, worsening of your leg swelling.Follow Up Appointment 1:Physician/Dept/Service: [facility]. Cisco Dozier [facility]: 1 week, Office to call patient directly to schedule appointmentLocation: [address] [place] [id number] Number: [phone]: Please arrive 10-15 minutes early, wear a mask prior to entering the building, bring discharge summary, bring photo ID, current list of medications & dosages, insurance cards and any copay that may apply. If unable to keep this appointment, please call to cancel at least 24 hrs prior to appointment.Follow Up Appointment 2:Physician/Dept/Service: Cara Dorantes [employer]PERVISOR - CardiologyScheduled Date/Time: 23-Jun-2021 14:30Location: [address] [address]Tssgl Number: [phone]: Please wear a mask when entering the building. Please arrive 10-15 minutes early, bring photo ID, current list of medications & dosages, insurance cards and any copay that may apply. If unable to keep this appointment, please call to cancel at least 24 hrs prior to appointment.Follow Up Appointment 3:Physician/Dept/Service: Cardiac RehabilitationComments: You will be called with the details of the appointment in the next few days. Please call [phone] ( [phone] if you do not hear back by then to inquire about appointment. Please arrive 15 minutes early and bring photo ID, insurance card, and medication list. If unable to attend appointment, please call to cancel within 24 hours. [facility] Chief Complaint Patient here for a new patient visitPatient here for a new patient visit Establish with Frequency and Weak StreamAngioedemaAngioedema1 mo med f/u AngioedemaNew patient visit here with concerns for difficulty breathing. Patient has had COVID vaccination but no flu vaccination.New patient visit here with concerns for difficulty breathing. Patient has had COVID vaccination but no flu vaccination.Follow up for possible angioedemaRoutine follow up visit recently discharged from hospital for fluid overload. Patient has had COVIDvaccination but no flu vaccine.Routine follow up visit recently discharged from hospital for fluid overload. Patient has had COVIDvaccination but no flu vaccine.Routine follow up visit recently discharged from hospital for fluid overload. Patient has had COVIDvaccination but no flu vaccine.Shortness of breath and review of stress test resultsRoutine follow up visit here to discuss results from recent breathing test. Patient has complaints of shortness of breath and wheezing for the past few months. Patient has had COVID vaccination but no flu vaccine. Routine follow up visit here to discuss results from recent breathing test. Patient has complaints of shortness of breath and wheezing for the past few months. Patient has had COVID vaccination but no flu vaccine.* Pt here today for FUV. Pt has received his COVID vaccines and declines the flu vaccine today. * follow up dyspnea * FREDDIE DUMONT is here for a follow-up visit. * Reason for Visit: dyspnea. Discussed with the patient's his visit to the ED this morning. Educated the spouse that treating the exacerbation with duonebs, getting the patient's breathing back to baseline, and prescribing prednisone and an antibiotic is what Dr. Lu would likely have done. Advised the patient to contact us by 01/26/22 if he isn't feeling better. Instructed the spouse to take the patient to the ED if his breathing or symptoms become worse.* Patient reports for Follow up. Patient states that Simbacort is somewhat helping. * Former smoker since april- no assistance. * Received Covid shot and 1 booster, No Flu shot Follow-up appointmentYearly w/ PSAYearly w/ PSAFollow-up appointmentShortness of breath and review of stress test results Reason for Referral * HFrEF Summary Purpose Family History Unknown Family Member Name Dates Details Family history of chronic ob structive pulmonary disease: Father(V17.6, Z82.5) Status:Active Family history of cardiac ar rest: Father(V17.49, Z82.49) Status:Active Family history of emphysema: Father(V17.6, Z82.5) Status:Active Unknown Family Member Name Dates Details Family history of emphysema: Father(V17.6, Z82.5) Status:Active Family history of cardiac ar rest: Father(V17.49, Z82.49) Status:Active Family history of chronic ob structive pulmonary disease: Father(V17.6, Z82.5) Status:Active No Family History Records Found Advance Directives No Advanced Directives Records FoundNo Advanced Directives Records FoundNo Advanced Directives Records FoundNo Advanced Directives Records Found Additional Source Comments <item> Privacy Markings (unrecogniz ed section and content) Section Author: [place] [employer] PROHIBITION ON REDISCLOSURE OF CONFIDENTIAL INFORMATION This notice accompanies a disclosure of information concerning a client made to you with the consent of such client. (unrecognized sect ion and content) No Status Records FoundNo Status Records FoundNo Status Records FoundNo Status Records Found INFORMATION SOURCE (unrecogn ized section and content) DATE CREATED AUTHOR AUTHOR'S ORGANIZ ATION 12/13/2021 [facility] DATE CREATED AUTHOR AUTHOR'S ORGANIZ ATION 09/26/2022 [facility] DATE CREATED AUTHOR AUTHOR'S ORGANIZ ATION 09/27/2022 [facility] FOR RECORDS PERTAINING TO PATIENTS WHO ARE OR HAVE BEEN ENROLLED IN A CHEMICAL DEPENDENCY/SUBSTANCEABUSE PROGRAM, SOME INFORMATION MAY BE OMITTED. This clinical summary was aggregated from multiple sources. Caution should be exercised in using it in the provision of clinical care. This summary normalizes information from multiple sources, and as a consequence, information in this document may materially change the coding, format and clinical context of patient data. In addition, data may be omitted in some cases. CLINICAL DECISIONS SHOULD BE BASED ON THE PRIMARY CLINICAL RECORDS. [facility] [employer] [facility]. provides no warranty or guarantee of the accuracy or completeness of information in this document.
[2023-03-16 10:42] LABS: Absolute Lymphocyte Count 1.46 X10^3/uL (0.83-4.51); Absolute Neutrophil Count 4.7 X10^3/uL (2.0-7.7); Basophil# 0.02 X10^3/uL; Basophil% 0.3 % (0-1); Eosinophil# 0.04 X10^3/uL; Eosinophils% 0.6 % (0-5); Hematocrit 43.9 % (40-54); Hemoglobin 14.6 g/dL (13.0-16.5); Lymphocyte # 1.46 X10^3/ul (0.83-4.51); Mean Corp Hgb Conc 33.3 g/dL (32-36); Mean Corpuscular Hgb 30.7 pg (27.0-32.0); Mean Corpuscular Volume 92.2 fL (80-94); Mean Platelet Vol. 11.5 fl (6.2-12.0); Monocyte# 0.41 X10^3/uL; Monocyte% 6.2 % (0-10); NRBC Flagged by Analyzer 0 % (0-5); Neutrophil # 4.68 X10^3/uL (2.7-7.7); Neutrophil % 70.6 % (47-70); Platelet Count 158 K/mm3 (150-450); RBC Distribution Width CV 13.2 % (11.6-14.6); RBC Distribution Width SD 44.6 fl (35.1-43.9); Red Blood Count 4.76 M/mm3 (4.6-6.2); White Blood Count 6.6 K/mm3 (4.4-11.0)
[2023-03-16 10:57] LABS: AST(SGOT) 13 U/L (15-37); Alanine Aminotransfer ALT/SGPT 8 U/L (16-61); Albumin, Serum 3.6 g/dL (3.2-5.0); Alkaline Phosphatase 77 U/L (45-117); Anion Gap 3 (5-15); BUN 14 mg/dL (7-18); BUN/Creat Ratio 10.2 RATIO (10-20); Bilirubin, Direct 0.29 mg/dL (0.00-0.30); Calcium,Total 9.2 mg/dL (8.5-10.1); Chloride 101 mmol/L (98-107); Creatinine, Serum 1.37 mg/dL (0.70-1.30); EST Glomerular Filtration Rate 56 mL/min (>60); Est Glom Filt Rate - Afr Amer 67 mL/min (>60); Estimated Creatinine Clearance 62.93 ml/min; Globulin 3.5 g/dL (2.2-4.2); Glucose 140 mg/dL (74-106); Lipase 15 U/L (13-75); Potassium 3.4 mmol/L (3.5-5.1); Protein, Total 7.1 g/dL (6.4-8.2); Sodium Level 136 mmol/L (136-145)
--- NOTE | 2023-03-16 11:07 | CT_ITS ---
HISTORY: hypoxia. TECHNIQUE: CT angiogram of the chest was performed after the intravenous administration of 100 mL Isovue-370. Post-processing of the angiographic images was performed with multiplanar reformation and 3D reconstruction. Individualized dose optimization techniques were used for this CT. 1129 images. COMPARISON: XR same day, CT 09/25/2022. FINDINGS: CENTRAL AIRWAYS: Patent. LUNGS: Mixed groundglass and alveolar opacities in the left lower lobe. Mild linear opacities in the right lower lobe. PLEURA: No pneumothorax or significant pleural effusion. HEART/PERICARDIUM: Heart within normal limits in size. No pericardial effusion. PULMONARY ARTERIES: No filling defect. AORTA/VESSELS: No thoracic aortic aneurysm or dissection flap. Mild atherosclerosis. MEDIASTINUM/JAMAL: No pathologically enlarged lymph nodes. Patulous esophagus with mild hiatal hernia. OSSEOUS STRUCTURES: Degenerative change. UPPER ABDOMEN: Refer to CT abdomen. CT/CTA Chest W/WO Contrast IMPRESSION: No evidence of pulmonary embolism. Mild left lower lobe pneumonia. Mild right lower lobe atelectasis. Electronically Signed: Valarie Lemos MD at 11:52 EST ,
--- NOTE | 2023-03-16 11:07 | CT_ITS ---
HISTORY: diarrhea abdominal pain. TECHNIQUE: Helically acquired images were obtained of the abdomen and pelvis after the intravenous administration of 100 mL Isovue-370. A radiation dose optimization technique was used for this scan. 431 images. COMPARISON: 09/18/2021. FINDINGS: LOWER CHEST: Refer to CTA chest. BOWEL: Mild distal small bowel wall thickening and fluid distention with very mild mesenteric edema. Bowel including appendix nondilated. Colonic diverticulosis without focal inflammatory change observed. PERITONEUM: Trace free fluid. LIVER: Stable 3 mm hypodensity in the right lobe. GALLBLADDER/BILIARY TREE: Gallbladder present. SPLEEN: Stable small peripherally calcified lesion. PANCREAS/ADRENAL GLANDS: Homogeneous and nonenlarged. KIDNEYS: No hydronephrosis. Stable 4.6 cm right sinus and cortical renal cyst. VESSELS: No abdominal aortic aorta. Mild atherosclerosis. PELVIC ORGANS: Small prostate calcifications. ABDOMINAL WALL: Small fat-containing umbilical and inguinal hernias. BONES: Degenerative change. CT/Abdomen/Pelvis W IV Cont ONLY IMPRESSION: Mild enteritis with mild fluid distention, wall thickening, and mesenteric edema of distal small bowel. Colonic diverticulosis without acute diverticulitis. Other chronic findings as above. Electronically Signed: Valarie Lemos MD at 11:58 EST ,
[2023-03-16] MEDS: 0.9% Normal Saline (1000mL) 1,000 ML 999 ML IV (11:12)
[2023-03-16 11:30] LABS: Troponin-I HS 39 pg/mL (3.0-78.0)
[2023-03-16 11:49] LABS: BNP,B-Type NATRIURETIC PEPTIDE 81.7 pg/mL (0-100)
--- NOTE | 2023-03-16 12:08 | ED.RN ---
attempted to void and unable
--- NOTE | 2023-03-16 13:45 | NURSING ---
dr julio lira
[2023-03-16] MEDS: Ceftriaxone 1 GM/50 ML BAG IV (13:47)
[2023-03-16] MEDS: Azithromycin 500 MG in Dextrose 5%-Water (250mL Bag) 250 ML 250 MG IV (13:47)
--- NOTE | 2023-03-16 13:47 | PCM.HP.STD ---
HPI - General General Date of Admission: 03/16/23 Date of Service: 03/16/23 Chief Complaint: Nocturnal diarrhea for about 10 days. Abdominal cramps 10 days HPI Narrative FREDDIE DUMONT, is a 62 M With no significant history of chronic diarrhea or inflammatory bowel disease came to ED with average 4-5 liquid bowel movement for last 10 days. He denies obvious blood or black stool or hematochezia. He has nausea but denies vomiting. He feels abdominal distention and abdominal pain/cramps started in mid abdomen and became generalized. No fever or chills. He denies any known precipitating factor like food poisoning/camping or outside travel. He had Z-Yayo and prednisone tapering dose given by Dr. Nayak for history of asthma. He also has known chronic stridor/wheezing from the throat. He feels that sometimes it goes into spasm and makes sound and feels scary and choking but does not have esophageal dysphagia. In ED, vitals were in acceptable range. No hypoxia or tachypnea. CT abdomen with IV contrast individually reviewed. Labs and imaging discussed in assessment plan. [facility] Medical History Abnormal CT of the chest Acute deep vein thrombosis of lower extremity Alcohol use Arthritis Bilateral hearing loss DVT (deep venous thrombosis) Gastric reflux High cholesterol History of nuclear stress test Hypothyroidism MARYJO (obstructive sleep apnea) Smoker Wears glasses Home Medications omeprazole 40 mg capsule,delayed release 40 mg PO BID gerd #120 caps 11/18/20 [Rx Last Taken 11/23/20] albuterol sulfate 90 mcg/actuation aerosol inhaler 2 puff inhalation Q6H PRN shortness of breath or wheezing #6.7 grams 11/23/20 [Rx Last Taken Unknown] levothyroxine 150 mcg tablet (Synthroid) 150 mcg PO DAILY thyroid 01/13/21 [History Last Taken Unknown] aspirin 81 mg chewable tablet (Luis Alberto Chewable Low Dose Aspirin) 81 mg PO DAILY heart health 01/24/22 [History Last Taken Unknown] clopidogrel 75 mg tablet 75 mg PO DAILY anit platelet 01/24/22 [History Last Taken Unknown] ezetimibe 10 mg tablet 10 mg PO DAILY as prescribed 01/24/22 [History Last Taken Unknown] metoprolol succinate 25 mg tablet,extended release 24 hr 12.5 mg PO DAILY bp 01/24/22 [History Last Taken Unknown] rosuvastatin 5 mg tablet 5 mg PO DAILY cholesterol 01/24/22 [History Last Taken Unknown] tamsulosin 0.4 mg capsule 0.4 mg PO BID prostate 05/17/22 [History Last Taken Unknown] furosemide 40 mg tablet (Lasix) 40 mg PO DAILY diuretic 06/04/22 [History Last Taken Unknown] isosorbide mononitrate 60 mg tablet,extended release 24 hr 60 mg PO DAILY heart 06/04/22 [History Last Taken Unknown] spironolactone 25 mg tablet 25 mg PO DAILY diuretic 06/04/22 [History Last Taken Unknown] Bilateral knee-high compression stockings (10-20) #2 ea 07/02/22 [Rx Last Taken Unknown] Handicap placard #1 ea 10/01/22 [Rx Last Taken Unknown] atropine 1 % eye drops See Rx Instructions buccal DAILY eyes #10 mL 01/31/23 [Rx Last Taken Unknown] carbidopa 25 mg-levodopa 100 mg tablet 2 tab PO TID parkinsons #540 tabs 01/31/23 [Rx Last Taken Unknown] budesonide-formoterol HFA 160 mcg-4.5 mcg/actuation aerosol inhaler (Symbicort) 2 puff inhalation BID as directed #1 ea 02/12/23 [Rx Last Taken Unknown] Allergy/AdvReac Type Severity Reaction Status Date / Time vibegron [From Gemtesa] Allergy Severe Rash Verified 03/12/23 10:10 Family History Father COPD (chronic obstructive pulmonary disease) Emphysema lung Myocardial infarction Mother Parkinsons disease Surgical History H/O cardiac catheterization H/O knee surgery H/O thyroidectomy Hx of arthroscopy of knee Social History Smoking Status: Current some day smoker tobacco type: cigarettes Tobacco: How many years used: 45 second hand exposure: Yes alcohol intake: current alcohol intake frequency: holidays/special occasions only substance use type: does not use caffeine: Yes (daily) what type of physical activity do you participate in: walking seatbelt use: sometimes ROS ROS Narrative Constitutional: Reports fatigue and weakness. No fever. HEENT: Reports systems reviewed and no addt'l complaints, except as documented Respiratory/Chest: History of chronic wheezing and history. Chronic stridor. No acute shortness of breath or respiratory distress CVS: No chest pain pressure or tightness. Gastrointestinal: As described in HPI. Denies coffee ground emesis, hematemesis or vomiting Genitourinary: Urine retention in ED. BPH. Denies burning urination or new urinary tract symptoms Musculoskeletal: Denies acute joint pain or limited range of motion. No acute injury Neurologic: Denies seizure-like symptoms. skin: No ulcer. No rash Endocrinology: Reports systems reviewed and no addt'l complaints, except as documented Hematologic/Lymphatic: Reports systems reviewed and no addt'l complaints, except as documented Rest 14 ROS are negative except as mentioned in HPI Vital Signs Vital Signs Vital Signs: 03/16/23 09:53 03/16/23 10:49 03/16/23 11:01 Temperature 97.2 F L Temperature Source Temporal Pulse Rate 85 Pulse Rate [Lying] 77 Pulse Rate [Sitting (for 1 minute prior to obtaining)] 86 Pulse Rate [Standing (for 1 minute prior to obtaining)] 101 H Respiratory Rate 16 Blood Pressure 95/74 Blood Pressure [Lying] 132/73 H Blood Pressure [Sitting (for 1 minute prior to obtaining)] 100/74 Blood Pressure [Standing (for 1 minute prior to obtaining)] 73/63 L Blood Pressure Mean 81 Blood Pressure Mean [Lying] 92 Blood Pressure Mean [Sitting (for 1 minute prior to obtaining)] 82 Blood Pressure Mean [Standing (for 1 minute prior to obtaining)] 66 Pulse Ox 90 92 Oxygen Delivery Method Room Air Nasal Cannula Oxygen Flow Rate (L/min) 2 03/16/23 11:12 03/16/23 12:47 Temperature Temperature Source Pulse Rate 89 80 Pulse Rate [Lying] Pulse Rate [Sitting (for 1 minute prior to obtaining)] Pulse Rate [Standing (for 1 minute prior to obtaining)] Respiratory Rate 22 H 16 Blood Pressure 116/88 H 109/80 Blood Pressure [Lying] Blood Pressure [Sitting (for 1 minute prior to obtaining)] Blood Pressure [Standing (for 1 minute prior to obtaining)] Blood Pressure Mean 97 89 Blood Pressure Mean [Lying] Blood Pressure Mean [Sitting (for 1 minute prior to obtaining)] Blood Pressure Mean [Standing (for 1 minute prior to obtaining)] Pulse Ox 94 98 Oxygen Delivery Method Nasal Cannula Nasal Cannula Oxygen Flow Rate (L/min) 2 2 Weight Weight: 216 lb 6.4 oz Body Mass Index (BMI) 31.9 Physical Exam Narrative General: Alert, Oriented x3, Cooperative HEENT: Atraumatic, PERRLA, EOMI, Normocephalic Oral: Oral mucosa dry. No Gingival or Mucosal Lesions/ Ulcerations Neck: Supple, No JVD, Negative Carotid Bruits Chest wall/Lungs: Air entry diminished in bilateral lung bases. Stridor/wheezing, chronic. No distal airways crepitation/rales Cardiovascular: Regular rate, Regular Rhythm, Normal S1, Normal S2, No M/G/R Abdomen: Soft, gaseous distention. No acute/ rebound tenderness. Bowel sounds sluggish. No palpable mass. : Acute retention urine required straight cath about more than 500 mL clear urine drained. No dysuria. No renal angle tenderness. No suprapubic tenderness. Extremities: No edema, Capillary Refill Less than 3 Seconds Skin: No rashes, No breakdown Musculoskeletal: No Tenderness to Palpation of Joints or Extremities Neurological: Cranial nerves II-XII grossly intact, DTR 2+/4. No acute focal neurological deficit. Psych/Mental Status: Flat affect. Results Lab / Micro Data 03/16/23 10:30 03/16/23 10:30 Labs: Laboratory Results - last 24 hr 03/16/23 10:30: WBC 6.6, RBC 4.76, Hgb 14.6, Hct 43.9, MCV 92.2, MCH 30.7, MCHC 33.3, RDW Std Deviation 44.6 H, RDW Coeff of Nick 13.2, Plt Count 158, MPV 11.5, Immature Gran % (Auto) 0.300, Neut % (Auto) 70.6 H, Lymph % (Auto) 22.0, [place] % (Auto) 6.2, Eos % (Auto) 0.6, Baso % (Auto) 0.3, Absolute Neuts (auto) 4.7, Absolute Lymphs (auto) 1.46, Nucleated RBC % 0, Sodium 136, Potassium 3.4 L, Chloride 101, Carbon Dioxide 32.0, Anion Gap 3 L, BUN 14, Creatinine 1.37 H, Estim Creat Clear Calc 62.93, Est GFR (MDRD) Af Amer 67, Est GFR (MDRD) Non-Af 56 L, BUN/Creatinine Ratio 10.2, Glucose 140 H, Calcium 9.2, Total Bilirubin 0.80, Direct Bilirubin 0.29, AST 13 L, ALT 8 L, Alkaline Phosphatase 77, Troponin I High Sens 39, B-Natriuretic Peptide 81.7, Total Protein 7.1, Albumin 3.6, Globulin 3.5, Lipase 15 Imaging Radiology Impression Chest X-Ray 03/16/23 10:24 IMPRESSION: Mild bibasilar atelectasis or pneumonia. Electronically Signed: Valarie Lemos MD at 10:53 EST , Abdomen/Pelvis CT 03/16/23 11:07 IMPRESSION: Mild enteritis with mild fluid distention, wall thickening, and mesenteric edema of distal small bowel. Colonic diverticulosis without acute diverticulitis. Other chronic findings as above. Electronically Signed: Valarie Lemos MD at 11:58 EST , Chest CTA 03/16/23 11:07 IMPRESSION: No evidence of pulmonary embolism. Mild left lower lobe pneumonia. Mild right lower lobe atelectasis. Electronically Signed: Valarie Lemos MD at 11:52 EST , Assessment & Plan Assessment/Plan (1) Diarrhea: QUALIFIERS: Diarrhea type: unspecified type Qualified Code(s): R19.7 - Diarrhea, unspecified PLAN: Plan This is a 62-year-old gentleman being admitted for lower tuner diarrhea and abdominal cramps for about 10 days. No fever. 1. Acute diarrhea and abdominal cramps possible small bowel inflammation/infectious cause, exact etiology unclear: [facility] Ministered IV fluid 1 L bolus and then 250 mill per hour then 125 mill per hour. Monitor intake and output. Stool studies including enteric pathogen, stool C. difficile, leukocytes, occult blood and calprotectin ordered. CT abdomen with IV contrast images individually reviewed and agree with the distal small bowel thickening, fluid distention with mesenteric edema. Colonic diverticulosis without diverticulitis. 4.6 cm right sinus and cortical renal cyst. Discussed with the jet mechanic Dr. Beauchamp. Consult requested. Possible differentials were discussed with the patient's and daughter. 2. Chronic pulmonary conditions: Persistent asthma, severe with no exacerbation and obstructive sleep apnea. Patient follows in pulmonary clinic with Dr. Nayak and Karen Lora, EPIFANIO. Was recommended low-salt diet, AutoPap and weight loss and inhaler Spiriva. Continue CPAP at night. Bronchodilator DuoNeb as needed for wheezing/airway spasm. Monitor pulse ox. Patient had spirometry/PFT in August 2022 which was reported unreliable result with inconsistent and did not meet criteria for acceptability and reproducibility. Plethysmography showed mild restriction, TLC 76% predicted, FRC 69%, RV/TLC 94%, VC 69%. No evidence of hyperinflation. DLCO 81% predicted. 3. Chronic HFpEF/diastolic heart failure and right carotid stenosis: I do not see any echo report in our system but patient might had outside. Does not need acute echo studies. Patient has moderate right extracranial ICA and normal left ICA. Patient is on baby aspirin and Plavix. Patient on diuretic Lasix, spironolactone, rosuvastatin, isosorbide mononitrate, and Zetia 4. Cricopharyngeal dysphagia: Patient has history of recurrent trouble swallowing and has seen Dr. Beauchamp in the office in November 2020. Patient had extensive evaluation including CT of the chest, CT of the neck which did not show any gross abnormality. History of Graves' disease status post thyroidectomy. On thyroid replacement treatment. No history of GERD. He was referred to [facility] tertiary care outpatient. EGD on 11/23/2020 shows LA grade B reflux esophagitis, normal stomach and D2. He also had dilatation of cricopharyngeal dysphagia. Patient had modified barium swallow which was reported mild oropharyngeal phase dysphagia. There was also concern was a spasm of vocal cords. Patient was referred to pulmonology and ENT. 5. Parkinson disease: Patient on carbidopa levodopa.He is also on carbidopa levodopa.He follows neurologist Dr. Hernandez. DVT prophylaxis, moderate risk: Enoxaparin 40 mill subcu daily. Discontinue if platelet count drops less than 50,000 or hemoglobin less than 8 g% Living will/advanced directive/end of life care: Patient does have living will or advanced directive. His is power of district attorney for health. After discussion of benefits/risks procedures involved with full code, DNR CC arrest and DNR CC, the patient opted for full code. Patient does want artificial life support including intubation, tube feed, ventilator and/chest compression, central venous catheter, vasopressor and DC shock if needed Total time spent in [id number] encounter in discussion of advanced directive 17 minutes. Laboratory Results 03/16/23 10:30: WBC 6.6, RBC 4.76, Hgb 14.6, Hct 43.9, MCV 92.2, MCH 30.7, MCHC 33.3, RDW Std Deviation 44.6 H, RDW Coeff of Nick 13.2, Plt Count 158, MPV 11.5, Immature Gran % (Auto) 0.300, Neut % (Auto) 70.6 H, Lymph % (Auto) 22.0, [place] % (Auto) 6.2, Eos % (Auto) 0.6, Baso % (Auto) 0.3, Absolute Neuts (auto) 4.7, Absolute Lymphs (auto) 1.46, Nucleated RBC % 0 Sodium 136, Potassium 3.4 L, Chloride 101, Carbon Dioxide 32.0, Anion Gap 3 L, BUN 14, Creatinine 1.37 H, Estim Creat Clear Calc 62.93, Est GFR (MDRD) Af Amer 67, Est GFR (MDRD) Non-Af 56 L, BUN/Creatinine Ratio 10.2, Glucose 140 H, Calcium 9.2, Total Bilirubin 0.80, Direct Bilirubin 0.29, AST 13 L, ALT 8 L, Alkaline Phosphatase 77, Troponin I High Sens 39, B-Natriuretic Peptide 81.7, Total Protein 7.1, Albumin 3.6, Globulin 3.5, Lipase 15 03/16/23 13:35: Lactic Acid Pending Clinical Impression(s) from Imaging Studies Chest X-Ray 03/16/23 10:24 IMPRESSION: Mild bibasilar atelectasis or pneumonia. Abdomen/Pelvis CT 03/16/23 11:07 IMPRESSION: Mild enteritis with mild fluid distention, wall thickening, and mesenteric edema of distal small bowel. Colonic diverticulosis without acute diverticulitis. Other chronic findings as above. Chest CTA 03/16/23 11:07 IMPRESSION: No evidence of pulmonary embolism. Mild left lower lobe pneumonia. Mild right lower lobe atelectasis. Charges/Coding Visit Charges Inpatient E&M: 84976 Init Hosp L3 Procedures Hospitalists Procedures: 38787 Advncd Care Plan 30 Min
--- NOTE | 2023-03-16 13:58 | NURSING ---
MED SURG CLARK PNEUMONIA, DIARRHEA
--- OUTSIDE RECORDS SUMMARY | 2023-03-16 14:13 | XMS RPT_ITS | CCD ---
Author Name Unknown Address [address] [place] [address] Organization [facility] Team Providers Care Sales Utility Representative Name Role Phone Cisco Dozier Unavailable Unavailable [...] Desmondbaltazar, Dr. Leta Crawford Referring Unavail able aTsia, Dr. Cisco Crawford Primary Care Unavaila ble Aly, Dr. Leta Crawford [facility]ending [facility] Dr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; Translations: [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] Onset: 2 Episodic Other [...] 16:10-0400 Body height 175.26 cm Cisco Moore Uepaa Work Phone: MENA PRESTIGE na 140 [place] Work Phone: 09-25-2022 16:10-0400 Body mass index (BMI) [Ratio] 32.49 kg/m2 Heliae Phone: JV-Nekkgsldbi-Nxld na 140 [place] Work Phone: 09-25-2022 16:10-0400 Body surface area Derived from formula 2.15 m2 Cisco Moore ZAP Phone: QB-Adcolwysyp-Ubtw na 140 [place] Work Phone: 09-25-2022 16:10-0400 Body weight 99.79 kg Cisco Moore Uepaa Work Phone: WS-Tvhgrjqbre-Svam na 140 [place] Work Phone: 09-25-2022 16:10-0400 Diastolic blood pressure 73 mm[Hg] Cisco Moore Uepaa Work Phone: VD-Dhkcaxnnre-Wqdz na 140 [place] Work Phone: 09-25-2022 16:10-0400 Heart rate 67 /min Cisco Moore Uepaa Work Phone: WR-Pgwdfblfvj-Fzhs na 140 [place] Work Phone: 09-25-2022 16:10-0400 SaO2% (BldA) [Mass fraction] 98 % Cisco Moore Uepaa Work Phone: WU-Ephaglilce-Hrpx na 140 [place] Work Phone: 09-25-2022 16:10-0400 Systolic blood pressure 115 mm[Hg] Cisco Moore Uepaa Work Phone: KI-Dugmpkfjwb-Vgsf na 140 [place] Work Phone: 03-28-2022 13:11-0500 Body mass index (BMI) [Ratio] 34.74 kg/m2 Cisco Moore Uepaa Work Phone: LW-Dvzppom-Psacnwb Work Phone: 03-28-2022 13:11-0500 Body surface area Derived from formula 2.21 m2 Cisco Moore Uepaa Work Phone: EI-Ilmxvig-Qotkxln Work Phone: 03-28-2022 13:11-0500 Body weight 106.71 kg Cisco Moore Uepaa Work Phone: CQ-Axwvmhj-Aslbeje Work Phone: 03-28-2022 13:11-0500 Diastolic blood pressure 75 mm[Hg] Cisco Moore Uepaa Work Phone: ED-Groctqc-Pqhlocg Work Phone: 03-28-2022 13:11-0500 Heart rate 71 /min Cisco Moore Uepaa Work Phone: YI-Nzenwfb-Yavzqjp Work Phone: 03-28-2022 13:11-0500 Systolic blood pressure 123 mm[Hg] Cisco Moore Uepaa Work Phone: DW-Xkiaaos-Ngwbsha Work Phone: 03-27-2022 15:45-0500 Body height 175.26 cm Cisco Moore Uepaa Work Phone: UV-Ayocdinftz-Ylgd na 140 [place] Work Phone: 03-27-2022 15:45-0500 Body mass index (BMI) [Ratio] 33.97 kg/m2 Cisco Moore Uepaa Work Phone: GU-Aipksbbxsr-Nyof na 140 [place] Work Phone: 03-27-2022 15:45-0500 Body surface area Derived from formula 2.19 m2 Cisco Moore Uepaa Work Phone: DQ-Sblljqstqp-Nrqm na 140 [place] Work Phone: 03-27-2022 15:45-0500 Body weight 104.33 kg Cisco Moore Uepaa Work Phone: BM-Wvfakuhhta-Phdx na 140 [place] Work Phone: 03-27-2022 15:45-0500 Diastolic blood pressure 67 mm[Hg] Cisco Moore Uepaa Work Phone: XN-Lgnresrasq-Pqjk na 140 [place] Work Phone: 03-27-2022 15:45-0500 Heart rate 64 /min Cisco Banjo Work Phone: NL-Fdbqcdiuoj-Yzmr na 140 [place] Work Phone: 03-27-2022 15:45-0500 SaO2% (BldA) [Mass fraction] 96 % Cisco Moore Uepaa Work Phone: OO-Ivjosfuipt-Gmbg na 140 [place] Work Phone: 03-27-2022 15:45-0500 Systolic blood pressure 103 mm[Hg] Cisco Moore Uepaa Work Phone: YK-Mmqhvqgyib-Ciys na 140 [place] Work Phone: 02-07-2022 13:45-0500 Body height 175.26 cm Cisco Moore Uepaa Work Phone: [facility] [facility] Work Phone: 02-07-2022 13:45-0500 Body mass index (BMI) [Ratio] 33.57 kg/m2 Cisco Moore Uepaa Work Phone: [facility] [facility] Work Phone: 02-07-2022 13:45-0500 Body surface area Derived from formula 2.18 m2 Cisco Moore Uepaa Work Phone: [facility] [facility] Work Phone: 02-07-2022 13:45-0500 Body temperature 97.9 [degF] Cisco Moore Uepaa Work Phone: [facility] [facility] Work Phone: 02-07-2022 13:45-0500 Body weight 103.11 kg Cisco Moore Uepaa Work Phone: [facility] [facility] Work Phone: 02-07-2022 13:45-0500 Diastolic blood pressure 73 mm[Hg] Cisco Moore Uepaa Work Phone: [facility] [facility] Work Phone: 02-07-2022 13:45-0500 Heart rate 70 /min Cisco Moore Uepaa Work Phone: [facility] [facility] [...] AUDIT Cisco Moore Stutzma n Work Phone: LW-Bncsbhc-Wgcffrp Work Phone: Start: 11-03-2022 AUDIT Cisco A Stutzma n Work Phone: LF-Sykdoxcpdr-Jeur a Work Phone: Start: 09-25-2022 Office outpatient vi sit 15 minutes Cisco Dozier Work Phone: HC-Jxgvbmoxdy-Vnze na 140 [place] Work Phone: Start: 09-25-2022 ambulatory MD NEVIN LI F acility:[id number] Start: 09-21-2022 AUDIT Cisco A Stutzma n Work Phone: KW-Wzupuhxrgc-Qqnu na 140 [place] Work Phone: Start: 09-10-2022 AUDIT Cisco A Stutzma n Work Phone: WP-Mycxpcfqbs-Ptvi a Work Phone: Start: 06-07-2022 AUDIT Cisco A Stutzma n Work Phone: EM-Ebotkdhkve-Dzty a Work Phone: Start: 05-09-2022 AUDIT Cisco Moore Stutzma n Work Phone: BI-Ozmzbvptvc-Hgei na 140 [place] Work Phone: Start: 03-28-2022 FUV, Provider: Rj Appiah II, Status: Pen, Time: 1:15 PM Cisco Moore Tasia Work Phone: FU-Ldngyoztqe-Zubp na 140 [place] Work Phone: Start: 03-28-2022 Office outpatient vi sit 25 minutes Cisco A Tasia Work Phone: EQ-Bxzewpg-Uxtmevf Work Phone: Start: 03-28-[address] Cisco Dozier Facility:[id number] Start: 03-27-2022 Office outpatient vi sit 25 minutes Cisco A Tasia Work Phone: IA-Kpxtqhflhw-Qgmj na 140 [place] Work Phone: Start: 03-27-2022 ambulatory MD NEVIN Scanlon acility:[id number] Start: 03-09-2022 AUDIT Cisco Moore Strichardma n Work Phone: JP-Pbmoxws-Csndsjw Work Phone: Start: 02-07-[address] Ernestina Hope Facility:[facility] Start: 02-07-2022 Patient encounter procedure Cisoc Moore Tasia Work Phone: [facility] [facility] Work Phone: Start: 01-25-2022 Chart Update Cisco Moore Strichardma n Work Phone: [facility] [facility] Work Phone: Start: 01-08-2022 Office outpatient vi sit 15 minutes Cisco A Tasia Work Phone: [facility] [facility] Work Phone: Start: 01-08-2022 Patient encounter procedure Cisco Dozier Work Phone: [facility] [facility] Work Phone: Start: 01-08-[address] Cisco Dozier Facility:[facility] Start: 12-25-2021 Chart Update Cisco Reesma n Work Phone: NT-Ihyrztpbdb-Wsow na 140 [place] Work Phone: Start: 12-14-2021 AUDIT Cisco Baltazar Ramirezrichardma n Work Phone: WZ-Ndcyyhfiwo-Ygyg a Work Phone: Start: 12-09-2021 End: 12-09-2021 Emergency department patient visit Dr. Cisco Dozier Facility:[id number] Start: 12-08-2021 ADLTPSG, Provider: [facility] RM 2,[id number], Status: Pen, Time: 8:00 PM Cisco Dozier Work Phone: LS-Qmrqgskgqx-Lboj a Work Phone: Start: 12-08-2021 AUDIT Cisco Reesma n Work Phone: UO-Bxhloxnewm-Rfan na 140 [place] Work Phone: Start: 12-07-2021 Chart Update Cisco Reesma n Work Phone: WF-Srmdfnueoi-Okfs a Work Phone: Start: 11-27-2021 Office outpatient vi sit 25 minutes Cisco Dozier Work Phone: MG-Pulm Sleep-[facility] [address] [place] Work Phone: Start: 11-27-2021 Patient encounter procedure Cisco Dozier Work Phone: [facility] [facility] Work Phone: Start: 11-27-[address] Cisco Dozier Facility:[facility] Start: 11-22-2021 AUDIT Cisco Reesma n Work Phone: RW-Avnjzolvt-Vausr 204 Work Phone: Start: 11-22-[address] Cisco Dozier Facility:[facility] Start: 11-14-2021 Office outpatient ne w 45 minutes Cisco Dozier Work Phone: NW-Rnzofurjqs-Hxae na 140 [place] Work Phone: Start: 11-14-2021 ambulatory Cara Camachoranco Facility :[id number] Start: 11-01-[address] Cisco Dozier Facility:[facility] Start: 11-01-[address] Cisco Dozier Facility:[facility] Start: 11-01-2021 Patient encounter procedure Cisco Dozier Work Phone: MP-Pulmonary Medicine-[facility] 6 Work Phone: Start: 10-26-2021 AUDIT Cisco Reesma n Work Phone: MO-Behlkpveso-Lcbw a Work Phone: Start: 10-11-2021 Current tobacco non-user cad cap copd pv dm Cisco Reesman Work Phone: DB-Rrfsgosnzv-Raho na 140 [place] Work Phone: Start: 10-11-2021 ambulatory Cara Ramos Facility :[id number] Start: 10-04-2021 ambulatory MD GIOVANNI Brumfield Facility:[id number] Start: 09-14-2021 Chart Update Cisco Reesma n Work Phone: HR-Nofuasodwn-Wejv a Work Phone: Start: 09-11-2021 Office outpatient vi sit 25 minutes Cisco Reesman Work Phone: OJ-Oasqpbbolv-Obtg na 140 [place] Work Phone: Start: 06-23-2021 [...] AUDIT Cisco Moore Stutzma n Work Phone: OK-Wrngfwqi-Ikxcdl s Benítez Work Phone: Start: 06-03-2021 End: 06-08-2021 Evaluation and management of inpatient Yvan Walker [facility] Rm [id number] Start: 05-17-2021 AUDIT Cisco Moore Stutzma n Work Phone: [facility] [facility] Work Phone: Start: 05-02-2021 Office outpatient vi sit 25 minutes Cisco Dozier Work Phone: MG-Otolaryngology- [facility] 4100 Work Phone: Start: 05-02-2021 Patient encounter procedure Cisco Dozier Work Phone: MG-Otolaryngology- [place] Work Phone: Start: 04-19-2021 AUDIT Cisco Reesma n Work Phone: MG-Otolaryngology- [place] MOB02 [place] Work Phone: Start: 04-06-2021 AUDIT Cisco Reesma n Work Phone: MG-Otolaryngology- Donna Voice Work Phone: Start: 04-05-2021 Patient encounter procedure Cisco Dozier Work Phone: YE-Igpqusunv-Jcsir in 4200 Work Phone: Start: 04-05-2021 EDEL, Provider : Kailyn Michel, Status: Pen, Time: 1:00 PM Cisco A Tasia Work Phone: YM-Oxlkwhaidx-Ryxu n 204 [place] Work Phone: Start: 04-03-2021 Office outpatient vi sit 25 minutes Cisco A Tasia Work Phone: AJ-Kvmyhqrpcp-Sghk n 204 [place] Work Phone: Start: 03-22-2021 [...] Update Cisco A Strichardma n Work Phone: WZ-Mctqwzadur-Nlsm n 204 [place] Work Phone: Start: 03-07-2021 Office consultation new/estab patient 60 min Cisco A Tasia Work Phone: MG-Otolaryngology- [place] [facility] Work Phone: Start: 03-01-2021 FUV, Provider: Rj Appiah II, Status: Pen, Time: 3:00 PM Cisco A Tasia Work Phone: MN-Sjywxtpwpc-Thls n 204 [place] Work Phone: Start: 03-01-2021 Office outpatient ne w 45 minutes Cisco Dozier Work Phone: VG-Fhimmzi-Umfyvii Work Phone: Start: 02-27-2021 Office consultation new/estab patient 80 min Cisco Dozier Work Phone: BH-Fxkxdlgcoq-Huuw n 204 [place] Work Phone: Start: 02-24-2021 Chart Update Csico Rose n Work Phone: BP-Spmmgine-Buuhgc de 1500 Work Phone: Start: 01-25-2021 Office outpatient ne w 45 minutes Cisco Dozier Work Phone: ID-Hqcexhp-Heqinoe d HC 232 [place] Work Phone: Start: 12-07-2020 Patient encounter procedure Cisco Dozier Work Phone: JP-Kqhqtsxc-Ihxusq de 1500 Work Phone: Procedures Date Procedure [...] Nevin Li, Status: Pen, Time: 3:30 PM BF-Mjeylfwwba-Bpztdv 140 [place] Work Phone: Start: 09-25-2022 FUV, Provider: Nevin Li, Status: Pen, Time: 3:45 PM FUV, Provider: Nevin Li, Status: Pen, Time: 3:45 PM UY-Tqnthrdkeb-Vcdzzs 140 [place] Work Phone: Start: 04-30-2022 FUVPRE, Provider: Leta Lu, Status: Pen, Time: 1:00 PM FUVPRE, Provider: Leta Lu, Status: Pen, Time: 1:00 PM [facility] [facility] Work Phone: Start: 03-28-2022 FUV, Provider: Rj Appiah II, Status: Pen, Time: 1:15 PM FUV, Provider: Rj Appiah II, Status: Pen, Time: 1:15 PM HZ-Eqwjlmx-Rinhqvj Work Phone: Start: 03-27-2022 FUV, Provider: Nevin [...] Nevin Li, Status: Pen, Time: 3:45 PM ZA-Cvqixrnapi-Ociuxi 140 [place] Work Phone: Start: 01-08-2022 FUVPRE, Provider: Leta Lu, Status: Pen, Time: 1:30 PM FUVPRE, Provider: Leta Lu, Status: Pen, Time: 1:30 PM [facility] [facility] Work Phone: Start: 01-08-2022 METHCHOL, Provider: [facility] FLR PFT RM1,PULM, Status: Pen, Time: 11:00 AM METHCHOL, Provider: [address] FLR PFT RM1,PULM, Status: Pen, Time: 11:00 AM [facility] [facility] Work Phone: Start: 01-08-2022 SPIROMETRY, Provider: [facility] FLR PFT RM1,PULM, Status: Pen, Time: 10:30 AM SPIROMETRY, Provider: [address] FLR PFT RM1,PULM, Status: Pen, Time: 10:30 AM [facility] [facility] Work Phone: Start: 12-08-2021 ADLTPSG, Provider: [facility] RM 2,[id number], Status: Pen, Time: 8:00 PM ADLTPSG, Provider: [facility] RM 2,[id number], Status: Pen, Time: 8:00 PM RJ-Tgrqnnijc-Xdtpe 204 Work Phone: Start: 11-27-2021 FUVPRE, Provider: Leta Lu, Status: Pen, Time: 1:30 PM FUVPRE, Provider: Leta Lu, Status: Pen, Time: 1:30 PM MP-Pulmonary Medicine-[facility] Work Phone: Start: 11-14-2021 NPV, Provider: Nevin Li, Status: Pen, Time: 3:00 PM NPV, Provider: Nevin Li, Status: Pen, Time: 3:00 PM VS-Pkwarodkag-Fyrshm 140 [place] Work Phone: Start: 11-01-2021 Patient encounter procedure [facility] Start: 10-11-2021 FUV, Provider: Cara Dorantes, Status: Pen, Time: 1:30 PM FUV, Provider: Cara Dorantes, Status: Pen, Time: 1:30 PM OV-Vctjycmkkl-Ljahor 140 [place] Work Phone: Start: 10-04-2021 Patient [...] Princess Mireille, Status: Pen, Time: 2:30 PM FD-Rmsytgsyvm-Pmszb 204 DO Work Phone: Start: 06-26-2021 Patient encounter procedure [facility] Start: 06-23-2021 NPV, Provider: Cara Dorantes, Status: Pen, Time: 2:30 PM NPV, Provider: Cara Dorantes, Status: Pen, Time: 2:30 PM VY-Aqlrretb-Jvmczoc Benítez Work Phone: Start: 06-23-2021 Patient encounter procedure [facility] [place] Start: 06-21-2021 FUVPRE, Provider: Macario Bond, Status: Pen, Time: 1:30 PM FUVPRE, Provider: Macario Bond, Status: Pen, Time: 1:30 PM [facility] [facility] Work Phone: Start: 06-21-2021 Patient encounter procedure Pulmonary [facility] Start: 06-07-2021 Coronary artery disease Coronary artery disease Date: 07-Jun-2021 [facility] Start: 06-07-2021 End: 06-08-2022 Polyethylene Glycol 17 gram Oral Powder Daily PRN ; Powder for Reconstitution (MIRALAX)DOSE = 17 gram(s) Oral 2 Times a Day Start: 07-Jun-2021 End: 07-Jun-2022 Ordered: 07-Jun-2021 Leandra Pollack Intent [facility] Start: 06-05-2021 End: 06-06-2022 Albuterol 90 micrograms/ Inhalation MDI 2 inhalation Every 6 Hours PRN ; (PROVENTIL, VENTOLIN)DOSE = 2 inhalation Every 4 Hours via MDI, PRN Shortness of BreathNotes from Pharmacy: [facility] Start: 05-Jun-2021 End: 05-Jun-2022 Ordered: 05-Jun-2021 Gene Lemus [facility] Start: 06-04-2021 End: 06-04-2022 [facility] Start: 05-02-2021 FUV, Provider: Sudheer Mcfarlane, Status: Pen, Time: 9:45 AM FUV, Provider: Sudheer Mcfarlane, Status: Pen, Time: 9:45 AM [facility] Work Phone: Start: 05-02-2021 FUV, Provider: Sudheer Mcfarlane, Status: Pen, Time: 9:40 AM FUV, Provider: Sudheer Mcfarlane, Status: Pen, Time: 9:40 AM UK-Qvecqzcinvkiae-Lrsv man Voice Work Phone: Start: 04-05-2021 VIRFUVDENISE, Provider: Kailyn Michel, Status: Pen, Time: 1:00 PM VIRFUVHOME, Provider: Kailyn Michel, Status: Pen, Time: 1:00 PM FQ-Rivhtkdxemelij-Cfmf man Voice Work Phone: Start: 04-03-2021 FUV, Provider: Princess Mireille, Status: Pen, Time: 2:30 PM FUV, Provider: Princess Mireille, Status: Pen, Time: 2:30 PM HM-Ipotitrwep-Qieby 204 DO Work Phone: Start: 03-29-2021 CYSTOSCOPY, Provider: [facility] PROC[facility]URE RM,[id number], Status: Pen, Time: 2:45 PM CYSTOSCOPY, Provider: [facility] PROCEDURE RM,[id number], Status: Pen, Time: 2:45 PM BY-Hypzagp-Xspnnzo Work Phone: Start: 03-22-2021 NPVPRE, Provider: Macario Bond, Status: Pen, Time: 2:00 PM NPVPRE, Provider: Macario Bond, Status: Pen, Time: 2:00 PM [facility] Work Phone: Start: 03-22-2021 NPV, Provider: Quita Zarate, Status: Pen, Time: 9:00 AM NPV, Provider: Quita Zarate, Status: Pen, Time: 9:00 AM AG-Ihaxufjz-Tmdefzda 1500 Work Phone: Start: 03-07-2021 NPV, Provider: Sudheer Mcafrlane, Status: Pen, Time: 11:00 AM NPV, Provider: Sudheer Mcfarlane, Status: Pen, Time: 11:00 AM SQ-Bskfgzuegf-Znftu 204 DO Work Phone: Start: 03-01-2021 FUV, Provider: Rj Appiah II, Status: Pen, Time: 3:00 PM FUV, Provider: Rj Appiah II, Status: Pen, Time: 3:00 PM XZ-Zsdkqmwx-Ursbcckx 1500 Work Phone: Start: 02-27-2021 NPV, Provider: Princess Mireille, Status: Pen, Time: 2:00 PM NPV, Provider: Princess Mireille, Status: Pen, Time: 2:00 PM VQ-Cjspnbge-Urvlfuep 1500 Work Phone: Start: 02-22-2021 FUV, Provider: Rj Appiah II, Status: Pen, Time: 3:45 PM FUV, Provider: Rj Appiah II, Status: Pen, Time: 3:45 PM GQ-Uumumcn-Tkgjogbp HC 232 DO Work Phone: Immunizations Immunization Date Immunization Notes Care Provider Antonio salter 12-22-2020 Moderna COVID-19 Vac cine 100 MCG/0.5ML Intramuscular Suspension Cisco Baltazar Uepaa Work Phone: -Pulmonary Medicine-[facility] 6 Work Phone: 04-07-2020 Moderna COVID-19 Vac cine 100 MCG/0.5ML Intramuscular Suspension Cisco A Tasia Work Phone: -Pulmonary Medicine-[facility] 6 Work Phone: 03-10-2020 Moderna COVID-19 Vac cine 100 MCG/0.5ML Intramuscular Suspension Cisco Dozier Work Phone: -Pulmonary Medicine-[facility] 6 Work Phone: 12-21-2018 Influenza, injectabl e, Madin [place] Canine Kidney, quadrivalent with preservative Cisco Dozier Work Phone: -Pulmonary Medicine-[facility] Work Phone: 12-31-2012 influenza, seasonal, injectable Cisco Dozier Work Phone: [facility] Work Phone: Payers Date Payer Category Payer Unknown [id number] 1960 Unknown [id number] [id number] 1960 Unknown [id number] 2. [id number] 1958 Unknown [id number] 2.16 [id number] 1958 Unknown [id number] 2. [id number] 1958 Unknown [id number] 2. [id number] 1958 Unknown [id number] 2.16. [id number] 1958 Unknown [id number] 2.16. [id number] 1958 Unknown [id number] 2.16 [id number] 1958 Unknown [id number] 2.16 [id number] 1958 Unknown [id number] 2.16. [id number] 1958 Unknown [id number] 2.16. [id number] 1958 Unknown [id number] 2.16. [id number] 1960 Unknown [id number] 2.16. [id number] Unknown Social History Date Type Detail Facility Current every day smoker Current every day smoker IG-Okymndj-Qjwmrkdt HC 232 DO Work Phone: Tobacco smoking consumption unknown [facility] NEGATED: Highlighted row Denies Current every day smoker Denies Current every day smoker [facility]m [facility]-[place] [facility] 6 Work Phone: Functional Status Date Assessment Result Facility Functional observable [facility] Mental Status Date Assessment Result Facility 06-05-2021 Cognitive functions 0227:37 [facility] Clinical Notes 02-27-2019 to 09-25-2022 <item><item><item><item><item><item><item> Note [...] of 62 satting 96% on room air. RI-Ozjisipquo-Bsxuim 140 [place] Work Phone: 03-27-2022 History of [...] room air. His weight is 223 pounds. VO-Zvzskptbzp-Fyvyfe 140 [place] Work Phone: 03-12-2022 History of [...] not an issue. He is taking Isosorbide. BY-Nmgtrsd-Qravuxz Work Phone: 01-24-2022 History of Present illness Narrative 61 year old male with PMH of asthma (positive methacholine), laryngeal spasm, former tobacco use, NSTEMI s/p RCA stent (2021) who presents to pulmonary clinic after a recent hospitalization for pneumonia.Patient presented to the [facility] on 01/24 and was told that [...] pack per day, social etoh, no illicits. 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.Methacholine Challenge test 01/08/22:Positive test with 20% drop in FEV1(between 0.5-1mg)PFT 11/01/2021:No obstruction observed (FEV1/FVC Z score -1.18), normal TLC, +gas trapping, borderline reduced DLCO, flow volume loops suggest upper airway obstruction MG-Pulm Sleep-[place] [address] Sleep Work Phone: 11-28-2021 History of Present 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 14 years, retired 2021[employer] priorPFT 11/01/2021:No obstruction observed (FEV1/FVC Z score -1.18), normal TLC, +gas trapping, borderline reduced DLCO, flow volume loops suggest upper airway obstruction MG-Pulm Sleep-[facility] [address] [place] Work Phone: 11-27-2021 History of [...] unsafe with his breathing; sent him to [place] [facility] where he received albuterol breathing treatment. 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 His weight is [address] Work Phone: 11-14-2021 History of Present [...] room air. His weight is 223 pounds. [facility] Work Phone: 10-11-2021 History of Present illness [...] started on atorvastatin 80mg following his cath). PN-Hpeleasjqm-Eragii 140 [place] Work Phone: 10-04-2021 Note Clinic Note: Education Assessment: Learning BarriersNo barriers TaughtPatient Primary Language of PatientEnglish Primary Language of [place] LearnerEnglish Infusion: Topic(s): InfusionFollow-up plan, Infusion orientation/routine, Lab results MethodVerbal, Teach-Back EvaluationTeaches back, States general concept Electronic Signatures: Braeden Armstrong (PETER) (Signed 04-Oct-2021 12:39) Authored: Education Assessment, Infusion Last Updated: 04-Oct-2021 12:39 by Braeden Armstrong (PETER) [facility] 10-04-2021 Note Clinic Note: Education Assessment: Learning [...] Updated: 04-Oct-2021 12:23 by Melonie Alva (RN) [facility] 09-12-2021 History of Present illness Narrative 09/12/2021: [...] started on atorvastatin 80mg following his cath). MK-Tmexlamfzu-Oihthq 140 [place] Work Phone: 04-05-2021 Reason for [...] referral: SOB, laryngospasmRehab Dx: J38.3, R49.0, J38.5 OS-Ebnnhmzky-Uusmjfl 4200 Work Phone: 04-03-2021 History of Present [...] He has gone to the ER in [place] a few times. He states that sometimes by the time he called EMS and they arrived, symptoms have already resolved spontaneously. He states that they have not seen swelling there to his knowledge. He first saw GI, Dr. Beauchapm and had and EGD, and states that he had a a reaction and had did have brief symptoms where swelling was associated right before the procedure, but they were able to continue and do the EGD. He saw ENT (Dr. Bobby Chavez) in [place] and had a rhinoscopy and didn't recall any abnormal findings. 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 He [...] he gets hot. Follows with Dermatology in [place].Food allergy: DeniesVenom allergy: DeniesDrug allergy: DeniesEnvironmental HistoryType [...] asthma to their knowledge. Also has Parkinson's. XQ-Gdwqutllwk-Eeibc 204 DO Work Phone: 03-07-2021 History of [...] last month. He has been working with [employer] on respiratory retraining.Recall: 03/07/2021 FREDDIE DUMONT is [...] smokerDenies other drug use.FHx: reviewed. Includes: Emphysema XZ-Oahvrwudviornw-Wkzo [place] Work Phone: 03-07-2021 History of Present [...] last month. He has been working with [employer] on respiratory retraining.Recall: 03/07/2021 FREDDIE DUMONT is [...] smokerDenies other drug use.FHx: reviewed. Includes: Emphysema AL-[facility]kllqcelsybaoo-[facility] Work Phone: 02-12-2021 History of Present [...] smokerDenies other drug use.FHx: reviewed. Includes: Emphysema DM-Lqfeylkcibfrol-Autg man Voice Work Phone: 01-08-2021 History of [...] Years ago.. ED is not an issue ZS-Uuebtmj-Thfxpxny HC 232 DO Work Phone: 01-08-2021 History [...] Prostate CA.. 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 Has seen a retail buyer and had endoscopy. 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 Has seen a retail buyer and had endoscopy. 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 Has seen a retail buyer and had endoscopy. 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 He states that sometimes [...] He saw ENT (Dr. Bobby Chavez) in [place] and had a rhinoscopy and didn't recall any abnormal findings. 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 He [...] he gets hot. 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 Also has Parkinson's. [facility] Work Phone: 03-01-2019 History of Present illness [...] He has gone to the ER in [place] a few times. He states that sometimes [...] He saw ENT (Dr. Bobby Chavez) in [place] and had a rhinoscopy and didn't recall any abnormal findings. 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 He [...] he gets hot. 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 Also has Parkinson's. [facility] Work Phone: 02-27-2019 History of Present illness [...] He has gone to the ER in [place] a few times. He states that sometimes [...] He saw ENT (Dr. Bobby Chavez) in [place] and had a rhinoscopy and didn't recall any abnormal findings. 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 He [...] he gets hot. 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 Also has Parkinson's. TM-Zxxlartybi-Jkbcw 204 DO Work Phone: Evaluation note Skin: [...] developed, awake/alert/oriented x3, no distress and cooperative [facility] [place] History of Present illness Narrative Patient presents [...] in mid-April. May benefit from GI referral. JR-Rndtjsxul-Rlzcjma 4200 Work Phone: Hospital Discharge instructions Activity:activity [...] for your laryngeal spasm. Take care, [facility] Medicine Team1. DAPT with aspirin and Plavix [...] Up Appointment 1:Physician/Dept/Service: [facility]. Cisco Dozier [facility] to [facility] in: 1 week, Office to call patient directly to schedule appointmentLocation: [address] [place] [id number] Number: [phone]: Please arrive 10-15 minutes early, wear a mask prior to entering the building, bring discharge summary, bring photo ID, current list of medications & dosages, insurance cards and any copay that may apply. If unable to keep this appointment, please call to cancel at least 24 hrs prior to appointment.Follow Up Appointment 2:Physician/Dept/Service: Cara Dorantes ECHOCARDIOGRAPH TECHNICIAN - CardiologyScheduled Date/Time: 23-Jun-2021 14:30Location: [address] [address]Yxamp Number: [phone]: Please wear a mask when entering the [...] in the next few days. Please call [phone] if you do not hear back by then to inquire about appointment. Please arrive 15 minutes early and bring photo ID, insurance card, and medication list. If unable to attend appointment, please call to cancel within 24 hours. [facility] [place] Chief Complaint Patient here for a new [...] DATE CREATED AUTHOR AUTHOR'S ORGANIZ ATION 12/13/2021 [facility] DATE CREATED AUTHOR AUTHOR'S ORGANIZ ATION 09/26/2022 [employer] DATE CREATED AUTHOR AUTHOR'S ORGANIZ ATION 09/27/2022 [facility] FOR RECORDS PERTAINING TO PATIENTS WHO [...] BE BASED ON THE PRIMARY CLINICAL RECORDS. [facility] [employer] [facility]. provides no warranty or guarantee of the accuracy or completeness of information in this document.
[2023-03-16 14:20] LABS: Lactic Acid 1.1 mmol/L (0.4-1.9)
[2023-03-16] MEDS: 0.9% Normal Saline (1000mL) 1,000 ML 250 ML IV (14:25)
[2023-03-16 14:27] LABS: Bacteria 0 SEEN /hpf (None Seen); Red Blood Cells-Urine 0 SEEN /hpf (0-5); White Blood Cells 0 SEEN /hpf (0-5)
[2023-03-16 14:31] LABS: Color, Urine Yellow (Yellow); Glucose, Dipstick Normal (Normal); Ketone-Dipstick 5 mg/dl (Negative); Leukocyte Esterase-Dipstick 25 /ul (Negative); Nitrite-Dipstick Negative (Negative); Occult Blood-Urine 10 /ul (Negative); Protein-Dipstick 15 mg/dl (Negative); Specific Gravity, Urine 1.015 (1.002-1.030); Urine Bilirubin Dipstick Negative (Negative); Urine Clarity Clear (Clear); Urine Urobilinogen Normal (Normal)
[2023-03-16 14:38] LABS: Magnesium 2.3 mg/dL (1.6-2.6); Phosphorus 2.5 mg/dL (2.5-4.9)
[2023-03-16 14:42] LABS: Mucous, Urine 1+ /hpf (<or=2+); Squamous Epithelial Cells - UA 0-5 SEEN /hpf (0-5)
[2023-03-16] MEDS: Budesonide Respules 0.5 MG/2 ML AMPUL.NEB. INHALATION ×2 (15:34→20:30)
[2023-03-16] MEDS: Albuterol 2.5 MG/3 ML VIAL.NEB. INHALATION (15:34)
--- NOTE | 2023-03-16 16:33 | EX.PCM.CON.G ---
HPI Consult Data Date of Consult: 03/16/23 HPI Narrative Reason for Consultation: Diarrhea HPI Narrative: FREDDIE DUMONT, is a 62 M who presents to the ED with several days of worsening diarrhea. Patient says for the last 10 days he has been waking up in the middle of the night with worsening abdominal pain, cramping, worsening reflux and persistent diarrhea with fecal incontinence. Patient states that during the day he does not have any bowel movements. At night he awakens with bloating and cramping states he will have 5-6 episodes of diarrhea. 1 month ago he states he was treated for an asthma exacerbation with an antibiotic and some prednisone. He states he saw pulmonology about 5 days ago. He was treated for oral thrush with nystatin swish and swallow. He states that since starting that medicine his dry mouth seems to be better. Patient notes no fever. Laboratory analysis in the ED did not show any signs of severe abnormality. He was afebrile and on toxic in the emergency room. CT scan of the abdomen pelvis displayed: Mild enteritis with mild fluid distention, wall thickening, and mesenteric edema of distal small bowel. Colonic diverticulosis without acute diverticulitis. [facility] Medical History Abnormal CT of the chest Acute deep vein thrombosis of lower extremity Alcohol use Arthritis Bilateral hearing loss DVT (deep venous thrombosis) Gastric reflux High cholesterol History of nuclear stress test Hypothyroidism MARYJO (obstructive sleep apnea) Smoker Wears glasses Home Medications omeprazole 40 mg capsule,delayed release 40 mg PO BID gerd #120 caps 11/18/20 [Rx Last Taken 11/23/20] albuterol sulfate 90 mcg/actuation aerosol inhaler 2 puff inhalation Q6H PRN shortness of breath or wheezing #6.7 grams 11/23/20 [Rx Last Taken Unknown] levothyroxine 150 mcg tablet (Synthroid) 150 mcg PO DAILY thyroid 01/13/21 [History Last Taken Unknown] aspirin 81 mg chewable tablet (Luis Alberto Chewable Low Dose Aspirin) 81 mg PO DAILY heart health 01/24/22 [History Last Taken Unknown] clopidogrel 75 mg tablet 75 mg PO DAILY anit platelet 01/24/22 [History Last Taken Unknown] ezetimibe 10 mg tablet 10 mg PO DAILY as prescribed 01/24/22 [History Last Taken Unknown] metoprolol succinate 25 mg tablet,extended release 24 hr 12.5 mg PO DAILY bp 01/24/22 [History Last Taken Unknown] rosuvastatin 5 mg tablet 5 mg PO DAILY cholesterol 01/24/22 [History Last Taken Unknown] tamsulosin 0.4 mg capsule 0.4 mg PO BID prostate 05/17/22 [History Last Taken Unknown] furosemide 40 mg tablet (Lasix) 40 mg PO DAILY diuretic 06/04/22 [History Last Taken Unknown] isosorbide mononitrate 60 mg tablet,extended release 24 hr 60 mg PO DAILY heart 06/04/22 [History Last Taken Unknown] spironolactone 25 mg tablet 25 mg PO DAILY diuretic 06/04/22 [History Last Taken Unknown] Bilateral knee-high compression stockings (10-20) #2 ea 07/02/22 [Rx Last Taken Unknown] Handicap placard #1 ea 10/01/22 [Rx Last Taken Unknown] atropine 1 % eye drops See Rx Instructions buccal DAILY eyes #10 mL 01/31/23 [Rx Last Taken Unknown] carbidopa 25 mg-levodopa 100 mg tablet 2 tab PO TID parkinsons #540 tabs 01/31/23 [Rx Last Taken Unknown] budesonide-formoterol HFA 160 mcg-4.5 mcg/actuation aerosol inhaler (Symbicort) 2 puff inhalation BID as directed #1 ea 02/12/23 [Rx Last Taken Unknown] Allergy/AdvReac Type Severity Reaction Status Date / Time vibegron [From Gemtesa] Allergy Severe Rash Verified 03/12/23 10:10 Family History Father COPD (chronic obstructive pulmonary disease) Emphysema lung Myocardial infarction Mother Parkinsons disease Surgical History H/O cardiac catheterization H/O knee surgery H/O thyroidectomy Hx of arthroscopy of knee Social History Smoking Status: Current some day smoker tobacco type: cigarettes Tobacco: How many years used: 45 second hand exposure: Yes alcohol intake: current alcohol intake frequency: holidays/special occasions only substance use type: does not use caffeine: Yes (daily) what type of physical activity do you participate in: walking seatbelt use: sometimes ROS ROS Narrative Constitutional: Reports fatigue and weakness. No fever. HEENT: Reports systems reviewed and no addt'l complaints, except as documented Respiratory/Chest: History of chronic wheezing and history. Chronic stridor. No acute shortness of breath or respiratory distress CVS: No chest pain pressure or tightness. Gastrointestinal: As described in HPI. Denies coffee ground emesis, hematemesis or vomiting Genitourinary: Urine retention in ED. BPH. Denies burning urination or new urinary tract symptoms Musculoskeletal: Denies acute joint pain or limited range of motion. No acute injury Neurologic: Denies seizure-like symptoms. skin: No ulcer. No rash Endocrinology: Reports systems reviewed and no addt'l complaints, except as documented Hematologic/Lymphatic: Reports systems reviewed and no addt'l complaints, except as documented Rest 14 ROS are negative except as mentioned in HPI Physical Exam Narrative General: Alert, Oriented x3, Cooperative HEENT: Atraumatic, PERRLA, EOMI, Normocephalic Oral: Oral mucosa dry. No Gingival or Mucosal Lesions/ Ulcerations Neck: Supple, No JVD, Negative Carotid Bruits Chest wall/Lungs: Air entry diminished in bilateral lung bases. Stridor/wheezing, chronic. No distal airways crepitation/rales Cardiovascular: Regular rate, Regular Rhythm, Normal S1, Normal S2, No M/G/R Abdomen: Soft, gaseous distention. No acute/ rebound tenderness. Bowel sounds sluggish. No palpable mass. : Acute retention urine required straight cath about more than 500 mL clear urine drained. No dysuria. No renal angle tenderness. No suprapubic tenderness. Extremities: No edema, Capillary Refill Less than 3 Seconds Skin: No rashes, No breakdown Musculoskeletal: No Tenderness to Palpation of Joints or Extremities Neurological: Cranial nerves II-XII grossly intact, DTR 2+/4. No acute focal neurological deficit. Psych/Mental Status: Flat affect. Lab / Micro Data 03/16/23 10:30 03/16/23 10:30 Labs: Laboratory Results - last 24 hr 03/16/23 10:30: WBC 6.6, RBC 4.76, Hgb 14.6, Hct 43.9, MCV 92.2, MCH 30.7, MCHC 33.3, RDW Std Deviation 44.6 H, RDW Coeff of Nick 13.2, Plt Count 158, MPV 11.5, Immature Gran % (Auto) 0.300, Neut % (Auto) 70.6 H, Lymph % (Auto) 22.0, Mcduffie % (Auto) 6.2, Eos % (Auto) 0.6, Baso % (Auto) 0.3, Absolute Neuts (auto) 4.7, Absolute Lymphs (auto) 1.46, Nucleated RBC % 0, Sodium 136, Potassium 3.4 L, Chloride 101, Carbon Dioxide 32.0, Anion Gap 3 L, BUN 14, Creatinine 1.37 H, Estim Creat Clear Calc 62.93, Est GFR (MDRD) Af Amer 67, Est GFR (MDRD) Non-Af 56 L, BUN/Creatinine Ratio 10.2, Glucose 140 H, Calcium 9.2, Phosphorus 2.5, Magnesium 2.3, Total Bilirubin 0.80, Direct Bilirubin 0.29, AST 13 L, ALT 8 L, Alkaline Phosphatase 77, Troponin I High Sens 39, B-Natriuretic Peptide 81.7, Total Protein 7.1, Albumin 3.6, Globulin 3.5, Lipase 15 03/16/23 13:35: Lactic Acid 1.1 03/16/23 14:10: Urine Color Yellow, Urine Clarity Clear, Urine pH 6.0, Ur Specific Bath 1.015, Urine Protein 15 H, Urine Glucose (UA) Normal, Urine Ketones 5 H, Urine Occult Blood 10 H, Urine Nitrite Negative, Urine Bilirubin Negative, Urine Urobilinogen Normal, Ur Leukocyte Esterase 25 H, Urine RBC 0 SEEN, Urine WBC 0 SEEN, Ur Squamous Epith Cells 0-5 SEEN, Urine Bacteria 0 SEEN, Urine Mucus 1+ Micro: Microbiology 03/16/23 14:10 Urine, Clean Catch Streptococcus pneumoniae Antigen (M - Final 03/16/23 14:10 Urine, Clean Catch Legionella Antigen - Final Imaging Radiology Impression Chest X-Ray 03/16/23 10:24 IMPRESSION: Mild bibasilar atelectasis or pneumonia. Electronically Signed: Valarie Lemos MD at 10:53 EST Reading Location ID and State: [facility] / [place] Tel , Service support , Abdomen/Pelvis CT 03/16/23 11:07 IMPRESSION: Mild enteritis with mild fluid distention, wall thickening, and mesenteric edema of distal small bowel. Colonic diverticulosis without acute diverticulitis. Other chronic findings as above. Electronically Signed: Valarie Lemos MD at 11:58 EST Reading Location ID and State: [facility] / [place] Tel , Service support , Chest CTA 03/16/23 11:07 IMPRESSION: No evidence of pulmonary embolism. Mild left lower lobe pneumonia. Mild right lower lobe atelectasis. Electronically Signed: Valarie Lemos MD at 11:52 EST , Assessment & Plan Assessment/Plan (1) Diarrhea: QUALIFIERS: Diarrhea type: unspecified type Qualified Code(s): R19.7 - Diarrhea, unspecified PLAN: Plan This is a 62-year-old gentleman being admitted for unexplained diarrhea and abdominal cramps. Agree with acute diarrhea and abdominal cramps possible distal small bowel inflammation as likely an infectious etiology. Ileitis, defined as inflammation of the ileum, is classically caused by Crohn?s disease. However, a wide variety of diseases may be associated with ileitis. These include infectious diseases, spondyloarthropathies, vasculitides, ischemia, neoplasms, drug-related, eosinophilic enteritis, sarcoidosis, amyloidosis, and a variety of other conditions. Typically distal small bowel inflammation is associated with a chronic diarrhea and proximal along with mid small bowel infections are typically associated with an acute or subacute diarrhea. We will wait stool cultures and C. difficile testing. He will likely need a upper or lower endoscopy to evaluate his proximal and distal small bowel to look for signs of vasculitides, atypical sprue disease, inflammatory bowel disease. I will also send autoimmune labs, IgG levels, protein electrophoresis, ESR, CRP and IBD SGI. Charges/Coding Visit Charges Inpatient E&M: 74261 Init Hosp L3
[2023-03-16] MEDS: KCL 20MEQ in 0.9% NS 20 MEQ/1,000 ML IV.SOLN. 125 MEQ IV (16:49)
[2023-03-16] MEDS: Potassium Chloride Oral Tablet 20 MEQ 40 MEQ PO (16:50)
[2023-03-16] MEDS: Carbidopa/Levodopa 25/100 Tablet PO (16:50)
[2023-03-16] MEDS: Ipratropium/Albuterol Sulfate 3 ML AMPUL.NEB INHALATION (20:30)
[2023-03-16] MEDS: Pantoprazole Sodium 40 MG Tablet PO (21:47)
[2023-03-16] MEDS: Tamsulosin HCl 0.4 MG Capsule 0.400000000000000022 MG PO (21:47)
[2023-03-16] MEDS: Enoxaparin 40 MG/0.4 ML Syringe SC (21:47)
[2023-03-17] VITALS (11 sets, daily range): BP systolic 105–134; BP diastolic 67–89; PULSE 70–82; RESP 18–20; TEMP 36.6–36.8; O2SAT 93–96; BMI 32.5
[2023-03-17] MEDS: KCL 20MEQ in 0.9% NS 20 MEQ/1,000 ML IV.SOLN. 125 MEQ IV ×2 (03:01→10:24)
[2023-03-17] MEDS: Carbidopa/Levodopa 25/100 Tablet PO ×3 (05:22→16:09)
[2023-03-17] MEDS: Levothyroxine 150 MCG Tablet PO (05:22)
[2023-03-17 06:22] LABS: Absolute Neutrophil Count 4.1 X10^3/uL (2.0-7.7); Basophil# 0.03 X10^3/uL; Basophil% 0.5 % (0-1); Eosinophil# 0.07 X10^3/uL; Eosinophils% 1.2 % (0-5); Hematocrit 41.6 % (40-54); Hemoglobin 13.5 g/dL (13.0-16.5); Lymphocyte % 20.4 % (19-41); Mean Corp Hgb Conc 32.5 g/dL (32-36); Mean Corpuscular Hgb 30.9 pg (27.0-32.0); Mean Corpuscular Volume 95.2 fL (80-94); Mean Platelet Vol. 12.1 fl (6.2-12.0); Monocyte# 0.46 X10^3/uL; Monocyte% 7.8 % (0-10); NRBC Flagged by Analyzer 0 % (0-5); Neutrophil # 4.12 X10^3/uL (2.7-7.7); Neutrophil % 69.9 % (47-70); Platelet Count 143 K/mm3 (150-450); RBC Distribution Width CV 13.3 % (11.6-14.6); RBC Distribution Width SD 46.7 fl (35.1-43.9); Red Blood Count 4.37 M/mm3 (4.6-6.2); White Blood Count 5.9 K/mm3 (4.4-11.0)
[2023-03-17 06:50] LABS: Anion Gap 2 (5-15); BUN 9 mg/dL (7-18); BUN/Creat Ratio 8.1 RATIO (10-20); Chloride 109 mmol/L (98-107); Creatinine, Serum 1.11 mg/dL (0.70-1.30); EST Glomerular Filtration Rate 71 mL/min (>60); Est Glom Filt Rate - Afr Amer 86 mL/min (>60); Glucose 98 mg/dL (74-106); Potassium 3.8 mmol/L (3.5-5.1); Sodium Level 139 mmol/L (136-145); Thyroid Stim Hormone (TSH) 0.46 uIU/mL (0.358-3.74)
[2023-03-17] MEDS: Budesonide Respules 0.5 MG/2 ML AMPUL.NEB. INHALATION ×2 (07:05→19:44)
[2023-03-17] MEDS: Ipratropium/Albuterol Sulfate 3 ML AMPUL.NEB INHALATION ×3 (07:05→15:07)
--- NOTE | 2023-03-17 08:11 | PCM.PN.HOSP ---
Reason for Visit Reason for Visit: Diagnoses Diarrhea, unspecified (03/16/23) Objective Data Objective Data Vital Signs: Vital Signs Temp Pulse Resp BP Pulse Ox O2 Del Method O2 Flow Rate 97.9 F 82 20 H 134/89 H 96 Nasal Cannula 2 03/17/23 05:24 03/17/23 07:36 03/17/23 07:36 03/17/23 05:24 03/17/23 07:36 03/17/23 07:36 03/17/23 07:36 Oxygen Flow Rate (L/min) 2 Oxygen Delivery Method Nasal Cannula Weight: 220 lb Body Mass Index (BMI) 32.5 Intake & Output: Intake and Output for Last 24 Hours 03/15/23 03/16/23 03/17/23 23:59 23:59 23:59 Intake Total 2185.34 / 2185.34 1000 / 1000 Output Total 0 / 0 Balance 2185.34 / 2185.34 1000 / 1000 Lab / Micro Data 03/17/23 05:51 03/17/23 05:51 Labs: Laboratory Results - last 24 hr 03/16/23 10:30: WBC 6.6, RBC 4.76, Hgb 14.6, Hct 43.9, MCV 92.2, MCH 30.7, MCHC 33.3, RDW Std Deviation 44.6 H, RDW Coeff of Nick 13.2, Plt Count 158, MPV 11.5, Immature Gran % (Auto) 0.300, Neut % (Auto) 70.6 H, Lymph % (Auto) 22.0, Stone % (Auto) 6.2, Eos % (Auto) 0.6, Baso % (Auto) 0.3, Absolute Neuts (auto) 4.7, Absolute Lymphs (auto) 1.46, Nucleated RBC % 0, Sodium 136, Potassium 3.4 L, Chloride 101, Carbon Dioxide 32.0, Anion Gap 3 L, BUN 14, Creatinine 1.37 H, Estim Creat Clear Calc 62.93, Est GFR (MDRD) Af Amer 67, Est GFR (MDRD) Non-Af 56 L, BUN/Creatinine Ratio 10.2, Glucose 140 H, Calcium 9.2, Phosphorus 2.5, Magnesium 2.3, Total Bilirubin 0.80, Direct Bilirubin 0.29, AST 13 L, ALT 8 L, Alkaline Phosphatase 77, Troponin I High Sens 39, B-Natriuretic Peptide 81.7, Total Protein 7.1, Albumin 3.6, Globulin 3.5, Lipase 15 03/16/23 13:35: Lactic Acid 1.1 03/16/23 14:10: Urine Color Yellow, Urine Clarity Clear, Urine pH 6.0, Ur Specific [place] 1.015, Urine Protein 15 H, Urine Glucose (UA) Normal, Urine Ketones 5 H, Urine Occult Blood 10 H, Urine Nitrite Negative, Urine Bilirubin Negative, Urine Urobilinogen Normal, Ur Leukocyte Esterase 25 H, Urine RBC 0 SEEN, Urine WBC 0 SEEN, Ur Squamous Epith Cells 0-5 SEEN, Urine Bacteria 0 SEEN, Urine Mucus 1+ 03/17/23 05:51: WBC 5.9, RBC 4.37 L, Hgb 13.5, Hct 41.6, MCV 95.2 H, MCH 30.9, MCHC 32.5, RDW Std Deviation 46.7 H, RDW Coeff of Nick 13.3, Plt Count 143 L, MPV 12.1 H, Immature Gran % (Auto) 0.200, Neut % (Auto) 69.9, Lymph % (Auto) 20.4, Stone % (Auto) 7.8, Eos % (Auto) 1.2, Baso % (Auto) 0.5, Absolute Neuts (auto) 4.1, Absolute Lymphs (auto) 1.20, Nucleated RBC % 0, Sodium 139, Potassium 3.8, Chloride 109 H, Carbon Dioxide 28.0, Anion Gap 2 L, BUN 9, Creatinine 1.11, Estim Creat Clear Calc 78.30, Est GFR (MDRD) Af Amer 86, Est GFR (MDRD) Non-Af 71, BUN/Creatinine Ratio 8.1 L, Glucose 98, Calcium 9.0, TSH 0.46 Micro: Microbiology 03/16/23 14:10 Urine, Clean Catch Streptococcus pneumoniae Antigen (M - Final 03/16/23 14:10 Urine, Clean Catch Legionella Antigen - Final Radiography Diagnostic Testing: Radiology Impression Chest X-Ray 03/16/23 10:24 IMPRESSION: Mild bibasilar atelectasis or pneumonia. Electronically Signed: Valarie Lemos MD at 10:53 EST , Abdomen/Pelvis CT 03/16/23 11:07 IMPRESSION: Mild enteritis with mild fluid distention, wall thickening, and mesenteric edema of distal small bowel. Colonic diverticulosis without acute diverticulitis. Other chronic findings as above. Electronically Signed: Valarie Lemos MD at 11:58 EST Reading Location ID and State: [facility] / [place] Tel , Service support , Chest CTA 03/16/23 11:07 IMPRESSION: No evidence of pulmonary embolism. Mild left lower lobe pneumonia. Mild right lower lobe atelectasis. Electronically Signed: Valarie Lemos MD at 11:52 EST Reading Location ID and State: [facility] / [place] Tel , Service support , Physical Exam Narrative Seen and examined No fever. Abdominal cramps and pain also better. No nausea or vomiting. He cough has improved. Physical exam General: Alert, Oriented x3, Cooperative HEENT: Atraumatic, PERRLA, EOMI, Normocephalic Oral: Oral mucosa dry. No Gingival or Mucosal Lesions/ Ulcerations Neck: Supple, No JVD, Negative Carotid Bruits Chest wall/Lungs: Air entry diminished in bilateral lung bases. Stridor/wheezing improved. No distal airways crepitation/rales Cardiovascular: Regular rate, Regular Rhythm, Normal S1, Normal S2, No M/G/R Abdomen: Soft, mild gaseous distention. No acute/ rebound tenderness. Bowel sounds sluggish. No palpable mass. : Acute retention urine required straight cath about more than 500 mL clear urine drained. No dysuria. No renal angle tenderness. No suprapubic tenderness. Extremities: No edema, Capillary Refill Less than 3 Seconds Skin: No rashes, No breakdown Musculoskeletal: No Tenderness to Palpation of Joints or Extremities Neurological: Cranial nerves II-XII grossly intact, DTR 2+/4. No acute focal neurological deficit. Psych/Mental Status: Flat affect. Assessment & Plan Assessment/Plan (1) Diarrhea: QUALIFIERS: Diarrhea type: unspecified type Qualified Code(s): R19.7 - Diarrhea, unspecified PLAN: Plan This is a 62-year-old gentleman being admitted for lower tuner diarrhea and abdominal cramps for about 10 days. No fever. 1. Acute diarrhea and abdominal cramps possible small bowel inflammation/infectious cause, exact etiology unclear: Patient being admitted on MedSurg floor. Ministered IV fluid 1 L bolus and then 250 mill per hour then 125 mill per hour. Monitor intake and output. Stool studies including enteric pathogen, stool C. difficile, leukocytes, occult blood and calprotectin ordered. CT abdomen with IV contrast images individually reviewed and agree with the distal small bowel thickening, fluid distention with mesenteric edema. Colonic diverticulosis without diverticulitis. 4.6 cm right sinus and cortical renal cyst. Discussed with the electronic intelligence officer Dr. Beauchamp. Consult requested. Possible differentials were discussed with the patient's and daughter. 03/17: TSH normal. Calcium normal. Electrolytes in normal range. Lactic acid normal. Urinary antigens are negative. Urine culture prelim shows no growth. Patient did not had bowel movement since admission therefore stool studies were not sent. Stool osmolality, sodium and potassium also ordered. Patient has abdominal distention but no pain with no vomiting or fever. Plan for EGD and colonoscopy tomorrow AM. Possible differential diagnosis considered for infectious diarrhea, IBD, ischemia, vasculitides, eosinophilic enteritis or drug-related. 2. Chronic pulmonary conditions: Persistent asthma, severe with no exacerbation and obstructive sleep apnea. Patient follows in pulmonary clinic with Dr. Nayak and Karen Lora NP. Was recommended low-salt diet, AutoPap and weight loss and inhaler Spiriva. Continue CPAP at night. Bronchodilator DuoNeb as needed for wheezing/airway spasm. Monitor pulse ox. Patient had spirometry/PFT in August 2022 which was reported unreliable result with inconsistent and did not meet criteria for acceptability and reproducibility. Plethysmography showed mild restriction, TLC 76% predicted, FRC 69%, RV/TLC 94%, VC 69%. No evidence of hyperinflation. DLCO 81% predicted. 03/17: Wheezing and stridor better. AutoPap 3. Chronic HFpEF/diastolic heart failure and right carotid stenosis: I do not see any echo report in our system but patient might had outside. Does not need acute echo studies. Patient has moderate right extracranial ICA and normal left ICA. Patient is on baby aspirin and Plavix. Patient on diuretic Lasix, spironolactone, rosuvastatin, isosorbide mononitrate, and Zetia 4. Cricopharyngeal dysphagia: Patient has history of recurrent trouble swallowing and has seen Dr. Beauchamp in the office in November 2020. Patient had extensive evaluation including CT of the chest, CT of the neck which did not show any gross abnormality. History of Graves' disease status post thyroidectomy. On thyroid replacement treatment. No history of GERD. He was referred to [facility] tertiary care outpatient. EGD on 11/23/2020 shows LA grade B reflux esophagitis, normal stomach and D2. He also had dilatation of cricopharyngeal dysphagia. Patient had modified barium swallow which was reported mild oropharyngeal phase dysphagia. There was also concern was a spasm of vocal cords. Patient was referred to pulmonology and ENT. 5. Parkinson disease: Patient on carbidopa levodopa.He is also on carbidopa levodopa.He follows neurologist Dr. Hernandez. DVT prophylaxis, moderate risk: Enoxaparin 40 mill subcu daily. Discontinue if platelet count drops less than 50,000 or hemoglobin less than 8 g% Living will/advanced directive/end of life care: Patient does have living will or advanced directive. His is power of carpet inspector for health. After discussion of benefits/risks procedures involved with full code, DNR CC arrest and DNR CC, the patient opted for full code. Patient does want artificial life support including intubation, tube feed, ventilator and/chest compression, central venous catheter, vasopressor and DC shock if needed Laboratory Results 03/16/23 10:30: Sodium 136, Potassium 3.4 L, Chloride 101, Carbon Dioxide 32.0, Anion Gap 3 L, BUN 14, Creatinine 1.37 H, Estim Creat Clear Calc 62.93, Est GFR (MDRD) Af Amer 67, Est GFR (MDRD) Non-Af 56 L, BUN/Creatinine Ratio 10.2, Glucose 140 H, Calcium 9.2, Phosphorus 2.5, Magnesium 2.3, Total Bilirubin 0.80, Direct Bilirubin 0.29, AST 13 L, ALT 8 L, Alkaline Phosphatase 77, Total Protein 7.1, Albumin 3.6, Globulin 3.5, Lipase 15 03/16/23 11:30: Stool Calprotectin Pending, Stl Giardia Antigen Pending 03/16/23 13:35: Lactic Acid 1.1 03/16/23 14:10: Urine Color Yellow, Urine Clarity Clear, Urine pH 6.0, Ur Specific [place] 1.015, Urine Protein 15 H, Urine Glucose (UA) Normal, Urine Ketones 5 H, Urine Occult Blood 10 H, Urine Nitrite Negative, Urine Bilirubin Negative, Urine Urobilinogen Normal, Ur Leukocyte Esterase 25 H, Urine RBC 0 SEEN, Urine WBC 0 SEEN, Ur Squamous Epith Cells 0-5 SEEN, Urine Bacteria 0 SEEN, Urine Mucus 1+ 03/17/23 05:51: WBC 5.9, RBC 4.37 L, Hgb 13.5, Hct 41.6, MCV 95.2 H, MCH 30.9, MCHC 32.5, RDW Std Deviation 46.7 H, RDW Coeff of Nick 13.3, Plt Count 143 L, MPV 12.1 H, Immature Gran % (Auto) 0.200, Neut % (Auto) 69.9, Lymph % (Auto) 20.4, Stone % (Auto) 7.8, Eos % (Auto) 1.2, Baso % (Auto) 0.5, Absolute Neuts (auto) 4.1, Absolute Lymphs (auto) 1.20, Nucleated RBC % 0, Sodium 139, Potassium 3.8, Chloride 109 H, Carbon Dioxide 28.0, Anion Gap 2 L, BUN 9, Creatinine 1.11, Estim Creat Clear Calc 78.30, Est GFR (MDRD) Af Amer 86, Est GFR (MDRD) Non-Af 71, BUN/Creatinine Ratio 8.1 L, Glucose 98, Calcium 9.0, TSH 0.46 Clinical Impression(s) from Imaging Studies Chest X-Ray 03/16/23 10:24 IMPRESSION: Mild bibasilar atelectasis or pneumonia. Abdomen/Pelvis CT 03/16/23 11:07 IMPRESSION: Mild enteritis with mild fluid distention, wall thickening, and mesenteric edema of distal small bowel. Colonic diverticulosis without acute diverticulitis. Other chronic findings as above. Chest CTA 03/16/23 11:07 IMPRESSION: No evidence of pulmonary embolism. Mild left lower lobe pneumonia. Mild right lower lobe atelectasis. Charges/Coding Visit Charges Inpatient E&M: 90611 Subs Hosp L2
[2023-03-17] MEDS: Tamsulosin HCl 0.4 MG Capsule 0.400000000000000022 MG PO ×2 (09:58→22:47)
[2023-03-17] MEDS: Aspirin 81 MG TAB.CHEW PO (09:58)
[2023-03-17] MEDS: Spironolactone 25 MG Tablet PO (09:58)
[2023-03-17] MEDS: Atorvastatin Calcium 10 MG Tablet PO (09:59)
[2023-03-17] MEDS: Clopidogrel Bisulfate 75 MG Tablet PO (09:59)
[2023-03-17] MEDS: Isosorbide Mononitrate 60 MG Tablet 90 MG PO (10:01)
[2023-03-17] MEDS: Ezetimibe 10 MG Tablet PO (10:02)
[2023-03-17] MEDS: Pantoprazole Sodium 40 MG Tablet PO ×2 (10:02→22:47)
[2023-03-17] MEDS: Metoprolol(XL)Succ 25 MG Tablet 12.5 MG PO (12:43)
--- NOTE | 2023-03-17 14:31 | NURSING ---
1430 patient back to bed. O2 off pox 94% after getting back to bed. will monitor. Jose Felix RN
[2023-03-17] MEDS: Bisacodyl 5 MG Tablet 20 MG PO (14:32)
[2023-03-17] MEDS: Polyethylene Glycol 3350 BOWEL PREP PO (16:24)
[2023-03-17] MEDS: Albuterol 2.5 MG/3 ML VIAL.NEB. INHALATION (19:44)
[2023-03-18] VITALS (11 sets, daily range): BP systolic 107–159; BP diastolic 71–97; PULSE 64–90; RESP 18–22; TEMP 36.2–37.2; O2SAT 92–96; BMI 32.2
[2023-03-18 05:38] LABS: Absolute Lymphocyte Count 1.28 X10^3/uL (0.83-4.51); Absolute Neutrophil Count 3.9 X10^3/uL (2.0-7.7); Basophil# 0.01 X10^3/uL; Basophil% 0.2 % (0-1); Eosinophil# 0.11 X10^3/uL; Eosinophils% 1.9 % (0-5); Hematocrit 40.7 % (40-54); Lymphocyte # 1.28 X10^3/ul (0.83-4.51); Lymphocyte % 22.1 % (19-41); Mean Corp Hgb Conc 31.9 g/dL (32-36); Mean Corpuscular Hgb 30.7 pg (27.0-32.0); Mean Platelet Vol. 11.8 fl (6.2-12.0); Monocyte# 0.53 X10^3/uL; Monocyte% 9.2 % (0-10); NRBC Flagged by Analyzer 0 % (0-5); Neutrophil # 3.85 X10^3/uL (2.7-7.7); Neutrophil % 66.4 % (47-70); Platelet Count 141 K/mm3 (150-450); RBC Distribution Width CV 13.6 % (11.6-14.6); RBC Distribution Width SD 47.8 fl (35.1-43.9); Red Blood Count 4.24 M/mm3 (4.6-6.2); White Blood Count 5.8 K/mm3 (4.4-11.0)
[2023-03-18 06:18] LABS: Anion Gap 5 (5-15); BUN 5 mg/dL (7-18); Calcium,Total 9.3 mg/dL (8.5-10.1); Chloride 109 mmol/L (98-107); Creatinine, Serum 1.01 mg/dL (0.70-1.30); EST Glomerular Filtration Rate 79 mL/min (>60); Est Glom Filt Rate - Afr Amer 95 mL/min (>60); Estimated Creatinine Clearance 85.59 ml/min; Glucose 90 mg/dL (74-106); Potassium 3.6 mmol/L (3.5-5.1); Sodium Level 140 mmol/L (136-145)
[2023-03-18 07:00] LABS: Thyroid Stim Hormone (TSH) 0.35 uIU/mL (0.358-3.74)
[2023-03-18] MEDS: Albuterol 2.5 MG/3 ML VIAL.NEB. INHALATION ×2 (07:06→18:50)
[2023-03-18] MEDS: Budesonide Respules 0.5 MG/2 ML AMPUL.NEB. INHALATION ×2 (07:06→18:50)
--- NOTE | 2023-03-18 08:44 | PCM.PN.HOSP ---
Reason for Visit Reason for Visit: Diagnoses Diarrhea, unspecified (03/16/23) Subjective Subjective Feels well post EGD/colonoscopy. Objective Data Objective Data Vital Signs: Vital Signs Temp Pulse Resp BP Pulse Ox O2 Del Method O2 Flow Rate 36.7 C 84 22 H 124/77 H 96 Room Air 2 03/18/23 04:26 03/18/23 07:07 03/18/23 07:07 03/18/23 04:26 03/18/23 07:07 03/18/23 07:07 03/17/23 10:00 Oxygen Flow Rate (L/min) 2 Oxygen Delivery Method Room Air Weight: 98.7 kg Body Mass Index (BMI) 32.2 Intake & Output: Intake and Output for Last 24 Hours 03/16/23 03/17/23 03/18/23 23:59 23:59 23:59 Intake Total 2185.34 / 2185.34 3585.42 / 3585.42 737.5 / 737.5 Output Total 0 / 0 Balance 2185.34 / 2185.34 3585.42 / 3585.42 737.5 / 737.5 Lab / Micro Data 03/18/23 04:56 03/18/23 04:56 Labs: Laboratory Results - last 24 hr 03/16/23 11:30: Stl Giardia Antigen Cancelled 03/17/23 11:30: Miscellaneous Test Cancelled 03/18/23 04:56: WBC 5.8, RBC 4.24 L, Hgb 13.0, Hct 40.7, MCV 96.0 H, MCH 30.7, MCHC 31.9 L, RDW Std Deviation 47.8 H, RDW Coeff of Nick 13.6, Plt Count 141 L, MPV 11.8, Immature Gran % (Auto) 0.200, Neut % (Auto) 66.4, Lymph % (Auto) 22.1, [place] % (Auto) 9.2, Eos % (Auto) 1.9, Baso % (Auto) 0.2, Absolute Neuts (auto) 3.9, Absolute Lymphs (auto) 1.28, Nucleated RBC % 0, Sodium 140, Potassium 3.6, Chloride 109 H, Carbon Dioxide 26.0, Anion Gap 5, BUN 5 L, Creatinine 1.01, Estim Creat Clear Calc 85.59, Est GFR (MDRD) Af Amer 95, Est GFR (MDRD) Non-Af 79, BUN/Creatinine Ratio 5.0 L, Glucose 90, Calcium 9.3, TSH 0.35 L Micro: Microbiology 03/16/23 14:10 Urine, Catheterized Urine Culture - Final Culture exhibits no growth. 03/16/23 11:30 Stool Enteric Bacteriology - Final 03/17/23 11:30 Stool Stool Lactoferrin - Final 03/17/23 11:30 Stool Stool Occult Blood (FRANCESCA) - Final 03/16/23 14:10 Urine, Clean Catch Streptococcus pneumoniae Antigen (M - Final 03/16/23 14:10 Urine, Clean Catch Legionella Antigen - Final Physical Exam Const alert and no apparent distress HEENT head/scalp atraumatic and moist oral mucous membranes Neck Neck Narrative: no thyromegaly. Cardio regular rate, regular rhythm, S1 normal heart sound and S2 normal heart sound GI normal to inspection, nondistended, normoactive bowel sounds, soft to palpation, non-tender and non-distended Extremity normal to inspection, full ROM and no clubbing, cyanosis or edema Neuro Sensorium / Orientation: awake and alert Assessment & Plan Assessment/Plan (1) Diarrhea: QUALIFIERS: Diarrhea type: unspecified type Qualified Code(s): R19.7 - Diarrhea, unspecified PLAN: Plan Acute diarrhea and abdominal cramps possible small bowel inflammation/infectious cause, exact etiology unclear: CT abdomen with IV contrast distal small bowel thickening, fluid distention with mesenteric edema. Colonic diverticulosis without diverticulitis. 4.6 cm right sinus and cortical renal cyst. discussed with the medical care administrator Dr. Beauchamp. Consult requested. Stool studies: infectious work up negative. Lactoferrin negative. C. diff test cancelled because of hard stool. C. diff essentially ruled out. EGD showed mild inflammation in the ileum s/s ileitis which was biopsied. SAUL Beauchamp, he feels it is less likely Crohn's disease. No treatment at this time. Await on Bx results. Esophagitis Non-severe actue esophagitis w/o bleeding. No gross lesions in the entire stomach. SAUL Beauchamp, recommends PPI. Chronic conditions: Persistent asthma, severe with no exacerbation and obstructive sleep apnea. Patient follows in pulmonary clinic with Dr. Nayak and Karen Lora NP. Was recommended low-salt diet, AutoPap and weight loss and inhaler Spiriva. Continue CPAP at night. Bronchodilator DuoNeb as needed for wheezing/airway spasm. Monitor pulse ox. Patient had spirometry/PFT in August 2022 which was reported unreliable result with inconsistent and did not meet criteria for acceptability and reproducibility. Plethysmography showed mild restriction, TLC 76% predicted, FRC 69%, RV/TLC 94%, VC 69%. No evidence of hyperinflation. DLCO 81% predicted.03/17: Wheezing and stridor better. AutoPap Chronic HFpEF/diastolic heart failure and right carotid stenosis: I do not see any echo report in our system but patient might had outside. Does not need acute echo studies. Patient has moderate right extracranial ICA and normal left ICA. Patient is on baby aspirin and Plavix. Patient on diuretic Lasix, spironolactone, rosuvastatin, isosorbide mononitrate, and Zetia Cricopharyngeal dysphagia: Patient has history of recurrent trouble swallowing and has seen Dr. Beauchamp in the office in November 2020. Patient had extensive evaluation including CT of the chest, CT of the neck which did not show any gross abnormality. History of Graves' disease status post thyroidectomy. On thyroid replacement treatment. No history of GERD. [facility]. EGD on 11/23/2020 shows LA grade B reflux esophagitis, normal stomach and D2. He also had dilatation of cricopharyngeal dysphagia. Patient had modified barium swallow which was reported mild oropharyngeal phase dysphagia. There was also concern was a spasm of vocal cords. Patient was referred to pulmonology and ENT. Parkinson disease: Patient on carbidopa levodopa.He is also on carbidopa levodopa.He follows neurologist Dr. Hernandez. DVT prophylaxis, moderate risk: Enoxaparin 40 mill subcu daily. Charges/Coding Visit Charges Inpatient E&M: 82072 Subs Hosp L2
--- NOTE | 2023-03-18 11:20 | CASEMGMT ---
Addendum entered by Steffanie Lopez 03/18/23 15:55: 3:30 PM: RN?CM?GRADE AND CENTER MARKER?CM?to room to meet with patient for initial transition planning/care coordination?assessment.?RN?CM?introduced self and role at [facility].? Pt voices understanding and consents to?assessment?at this time.? Pt up ambulating in room in no distress at this time.? Pt is A/O at this time and answers all questions appropriately.?? Care providers, pharmacy, and demographics verified/updated at this time. PCP: Dr Dozier Specialists: Dr Nayak/Karen Lora, ROCK SINGER--pulmonology, Dr Hernandez-neurology, Dr Rogers-cardiology [facility], Dr Appiah-urology [facility] Preferred Pharmacy: [facility] Insurance: MMO Prescription Benefit:?Yes Living Will/HPOA:?Pt does not currently have LW/HCPOA and declines info at this time.? Pt made aware that he can contact as an out-pt and make appt in the future if he decides he would like to talk with someone about this or would like to utilize [facility] social work for advanced directive completion.? LNOK:, daughter Living Arrangements: Lives w/ in 2-story home w/bedroom and bathroom on 2nd floor and bathroom on main floor. Denies difficulty w/stairs. 2 steps to enter home. Independent. Transportation:?Pt and both drive DME: Has the following DME:?CPAP from [facility]. No home O2. Pt has a nebulizer and he thinks he has a pulse ox. Pt states no need for further DME at this time.? HHC/SNF: No hx of either. No needs identified. Pt wishes to return home and states has no concerns with going home at time of discharge. ?CM?to follow for any discharge planning/needs.? Pt voices no concerns/needs at this time.? Advised pt to ask for?CM?if any questions/concerns/needs arise.? Voices understanding. PLAN:??Home Justin MORE?RN?CM Original Note: RN CM NOTE: RN CM to room to complete initial assessment. Pt out of room at this time for scopes. RN CM to attempt at a later time. Justin MORE RN CM
[2023-03-18] MEDS: Lactated Ringers 1,000 ML 15 ML IV (11:27)
--- NOTE | 2023-03-18 11:30 | COLBX_PTH ---
PATHOLOGY RESULTS PATIENT: FREDDIE DUMONT LOC: MS3 U#:[id number] AGE/SX: 62/M ROOM: SD315 RE03/16/[address]: Dr. Harrison Spears DO : 1960 BED: 1 DIS: 03/19/2023 SPEC #: [id number] RECD: 03/18/23 14:51 STATUS: MICHAEL REBoogie #: [id number] ANALILIA: 03/18/23 11:[address]: Ravinder Beauchamp DEPT: SURGICAL PATHOLOGY RECD BY: Jennie Cabrera ENTERED: 03/19/23 11:57 SP TYPE: COLON BX OTHR DR: DO Dr. Cisco Childs, DO Dr. Delfin Russell MD Tissues: Duodenum, NOS Ileum, NOS Procedures: Surgery Specimen Level IV Comments: @ Ordering doctor for SUIV edited from to @ by KEITH at 03/19/23 1417 @ Submitting doctor edited from to @ by RGOOD at 03/19/23 1417 HEADER OPERATION: Colonoscopy with biopsy, EGD with biopsy PRE-OP DIAGNOSIS: Diarrhea, vomiting TISSUE SUBMITTED: A - Duodenum biopsy, B - Terminal ileum biopsy MICROSCOPIC DIAGNOSIS A. Duodenum, biopsy: A fragment of duodenal mucosa, no pathologic diagnosis. B. Terminal ileum, biopsy: Fragments of small intestinal mucosa, no pathologic diagnosis. LUZ:celestine 03/20/2023 MICROSCOPIC DESCRIPTION Slides are reviewed. GROSS DESCRIPTION A - Received in fixative is one container labeled with the patient's name and designated duodenum biopsy. The specimen consists of one irregular fragment of light arthur soft tissue that measures 0.3 x 0.3 x 0.1 cm. The specimen is totally submitted in one cassette. B - Received in fixative is one container labeled with the patient's name and designated terminal ileum biopsy. The specimen consists of multiple irregular fragments of light arthur soft tissue that in aggregate measure 1.0 x 0.4 x 0.1 cm. The specimen is totally submitted in one cassette. / LUZ:celestine 03/19/2023 TC:4 CPT: 04147 x2
[2023-03-18] MEDS: Carbidopa/Levodopa 25/100 Tablet PO ×2 (11:36→15:33)
[2023-03-18] MEDS: Ipratropium/Albuterol Sulfate 3 ML AMPUL.NEB INHALATION (11:38)
--- NOTE | 2023-03-18 12:23 | OP.CCLET_ITS ---
03/18/2023 Cisco Dozier [address] [facility] [place] [address] Re : Upper GI endoscopy procedure for Mauro Cole Dear Dr. Dozier This procedure was performed on Saturday, March 18, 2023. My impressions and recommendations are as follows: Impressions : - Non-severe acute esophagitis with no bleeding. - No gross lesions in the entire stomach. - Erythematous duodenopathy. Biopsied. Recommendations : - Await pathology results. - Repeat upper endoscopy. - Continue present medications. My findings are described in the full procedure note, which is enclosed. If I can be of further assistance, please feel free to contact me at . Sincerely, Ravinder Beauchamp, 03/18/2023 12:23:05 PM This report has been signed electronically.
--- NOTE | 2023-03-18 12:23 | OP.EGD_ITS ---
Patient Name: Mauro Cole Procedure Date: 03/18/2023 11:43 AM Date of : 1960 Age: 62 Procedure: Upper GI endoscopy Indications: Epigastric abdominal pain, Abnormal CT of the GI tract Providers: Ravinder Beauchamp DO Medicines: Monitored Anesthesia Care Patient Profile: This is a 62 year old male. Refer to note in patient chart for documentation of history and physical. Patient has symptoms of acute vomiting. Complications: No immediate complications. Procedure: Pre-Anesthesia Assessment: - Prior to the procedure, a History and Physical was performed, and patient medications and allergies were reviewed. The patient is competent. The risks and benefits of the procedure and the sedation options and risks were discussed with the patient. All questions were answered and informed consent was obtained. Patient identification and proposed procedure were verified by the physician in the pre-procedure area. Mental Status Examination: alert and oriented. Airway Examination: normal oropharyngeal airway and neck mobility. Respiratory Examination: clear to auscultation. CV Examination: normal. Prophylactic Antibiotics: The patient does not require prophylactic antibiotics. Prior Anticoagulants: The patient has taken no anticoagulant or antiplatelet agents. ASA Grade Assessment: III - A patient with severe systemic disease. After reviewing the risks and benefits, the patient was deemed in satisfactory condition to undergo the procedure. The anesthesia plan was to use monitored anesthesia care (MAC). Immediately prior to administration of medications, the patient was re-assessed for adequacy to receive sedatives. The heart rate, respiratory rate, oxygen saturations, blood pressure, adequacy of pulmonary ventilation, and response to care were monitored throughout the procedure. The physical status of the patient was re-assessed after the procedure. After obtaining informed consent, the endoscope was passed under direct vision. Throughout the procedure, the patient's blood pressure, pulse, and oxygen saturations were monitored continuously. The Colonoscope was introduced through the mouth, and advanced to the second part of duodenum. The upper GI endoscopy was accomplished without difficulty. The patient tolerated the procedure well. Scope In: 12:02:44 PM Scope Out: 12:05:53 PM Total Procedure Duration Time 0 hours 3 minutes 9 seconds Findings: Non-severe esophagitis with no bleeding was found 39 to 42 cm from the incisors. No gross lesions were noted in the entire examined stomach. Patchy mildly erythematous mucosa without active bleeding and with no stigmata of bleeding was found in the duodenal bulb. Biopsies were taken with a cold forceps for histology. Impression: - Non-severe acute esophagitis with no bleeding. - No gross lesions in the entire stomach. - Erythematous duodenopathy. Biopsied. Recommendation: - Await pathology results. - Repeat upper endoscopy. - Continue present medications. Procedure Code(s): --- Professional --- 57927, Esophagogastroduodenoscopy, flexible, transoral; with biopsy, single or multiple CPT copyright 2021 [employer]. All rights reserved. The codes documented in this report are preliminary and upon reed repairer review may be revised to meet current compliance requirements. Ravinder Beauchamp DO 03/18/2023 12:23:05 PM This report has been signed electronically. Number of Addenda: 0 Note Initiated On: 03/18/2023 11:43 AM
--- NOTE | 2023-03-18 12:26 | OP.COLON_ITS ---
Patient Name: Mauro Cole Procedure Date: 03/18/2023 12:06 PM Date of : 1960 Age: 62 Procedure: Colonoscopy Indications: Clinically significant diarrhea of unexplained origin, Abnormal CT of the GI tract Providers: Ravinder Beauchamp DO Medicines: Monitored Anesthesia Care Patient Profile: This is a 62 year old male. Refer to note in patient chart for documentation of history and physical. Patient has symptoms of acute vomiting. Last Colonoscopy: date unknown. Unable to locate last colonoscopy report. Complications: No immediate complications. Procedure: Pre-Anesthesia Assessment: - Prior to the procedure, a History and Physical was performed, and patient medications and allergies were reviewed. The patient is competent. The risks and benefits of the procedure and the sedation options and risks were discussed with the patient. All questions were answered and informed consent was obtained. Patient identification and proposed procedure were verified by the physician in the pre-procedure area. Mental Status Examination: alert and oriented. Airway Examination: normal oropharyngeal airway and neck mobility. Respiratory Examination: clear to auscultation. CV Examination: normal. Prophylactic Antibiotics: The patient does not require prophylactic antibiotics. Prior Anticoagulants: The patient has taken no anticoagulant or antiplatelet agents. ASA Grade Assessment: III - A patient with severe systemic disease. After reviewing the risks and benefits, the patient was deemed in satisfactory condition to undergo the procedure. The anesthesia plan was to use monitored anesthesia care (MAC). Immediately prior to administration of medications, the patient was re-assessed for adequacy to receive sedatives. The heart rate, respiratory rate, oxygen saturations, blood pressure, adequacy of pulmonary ventilation, and response to care were monitored throughout the procedure. The physical status of the patient was re-assessed after the procedure. After I obtained informed consent, the scope was passed under direct vision. Throughout the procedure, the patient's blood pressure, pulse, and oxygen saturations were monitored continuously. The Colonoscope was introduced through the anus and advanced to the terminal ileum. The colonoscopy was performed without difficulty. The patient tolerated the procedure well. The quality of the bowel preparation was poor. The terminal ileum, ileocecal valve, appendiceal orifice, and rectum were photographed. Scope In: 12:08:24 PM Scope Withdrawal Time 0 hours 6 minutes 33 seconds Scope Out: 12:16:54 PM Total Procedure Duration Time 0 hours 8 minutes 30 seconds Findings: The perianal and digital rectal examinations were normal. Many small and large-mouthed diverticula were found in the recto-sigmoid colon and sigmoid colon. A large amount of semi-liquid stool was found in the entire colon. Patchy mild inflammation characterized by erythema and pseudopolyps was found in the terminal ileum. Biopsies were taken with a cold forceps for histology. Verification of patient identification for the specimen was done. Estimated blood loss was minimal. Impression: - Preparation of the colon was poor. - Diverticulosis in the recto-sigmoid colon and in the sigmoid colon. - Stool in the entire examined colon. - Mild inflammation was found in the ileum secondary to ileitis. Biopsied. Recommendation: - [facility]. - Resume previous diet. - Continue present medications. - Await pathology results. - Repeat colonoscopy because the bowel preparation was poor. Procedure Code(s): --- Professional --- 57056, Colonoscopy, flexible; with biopsy, single or multiple CPT copyright 2021 [employer]. All rights reserved. The codes documented in this report are preliminary and upon manager product review may be revised to meet current compliance requirements. Ravinder Beauchamp DO 03/18/2023 12:25:53 PM This report has been signed electronically. Number of Addenda: 0 Note Initiated On: 03/18/2023 12:06 PM
--- NOTE | 2023-03-18 12:26 | OP.CCLET_ITS ---
03/18/2023 Cisco Dozier [address] [place] [address] Re : Colonoscopy procedure for Mauro Cole Dear Dr. Dozier This procedure was performed on Saturday, March 18, 2023. My impressions and recommendations are as follows: Impressions : - Preparation of the colon was poor. - Diverticulosis in the recto-sigmoid colon and in the sigmoid colon. - Stool in the entire examined colon. - Mild inflammation was found in the ileum secondary to ileitis. Biopsied. Recommendations : - [facility]. - Resume previous diet. - Continue present medications. - Await pathology results. - Repeat colonoscopy because the bowel preparation was poor. My findings are described in the full procedure note, which is enclosed. If I can be of further assistance, please feel free to contact me at . Sincerely, Ravinder Friend, DO 03/18/2023 12:25:53 PM This report has been signed electronically.
--- NOTE | 2023-03-18 16:38 | CHAPLAIN ---
Type of Pastoral Visit ___ Initial Visit ___ Follow-up Visit ___ On-call Visit ___ General Patient Visit ___ Spiritual Assessment ___ Family Conference ___ Bereavement ___ Rapid Response ___ Code Blue ___ Other (describe below) Pastoral Care Referral From ___ Patient ___ Family ___ Nurse ___ Physician ___ Field Associate ___ Sausage Tier ___ Other (describe below) Sacrament/Intervention ___ Active listening ___ Anointing ___ Yarsani ___ Bereavement ___ Communion ___ Joana exploration ___ ___ Life review ___ Prayer ___ Reconciliation ___ Sacrament of Sick ___ Supportive presence ___ Wedding ___ Other (describe below) Pastoral Comments at time of attempted encounter the patient has CM in the room and RN is preparing to enter room for her tasks; visit was postponed
[2023-03-18] MEDS: Enoxaparin 40 MG/0.4 ML Syringe SC (20:37)
[2023-03-18] MEDS: Tamsulosin HCl 0.4 MG Capsule 0.400000000000000022 MG PO (20:43)
[2023-03-18] MEDS: Pantoprazole Sodium 40 MG Tablet PO (20:43)
[2023-03-18] MEDS: Menthol/Lanolin/Calamine/Znox 113 GM Tube 1 APPLIC TOPICAL (21:57)
[2023-03-18] MEDS: 0.9% Saline Lock 10 ML Syringe IV (21:59)
[2023-03-19] VITALS (7 sets, daily range): BP systolic 97–161; BP diastolic 63–88; PULSE 67–88; RESP 18–23; TEMP 36.3–36.8; O2SAT 91–94; BMI 32.1
[2023-03-19] MEDS: Carbidopa/Levodopa 25/100 Tablet PO ×2 (06:10→11:38)
[2023-03-19] MEDS: Levothyroxine 150 MCG Tablet PO (06:11)
[2023-03-19] MEDS: Albuterol 2.5 MG/3 ML VIAL.NEB. INHALATION (07:17)
[2023-03-19] MEDS: Budesonide Respules 0.5 MG/2 ML AMPUL.NEB. INHALATION (07:17)
[2023-03-19 07:29] LABS: Absolute Lymphocyte Count 1.39 X10^3/uL (0.83-4.51); Absolute Neutrophil Count 4.1 X10^3/uL (2.0-7.7); Basophil# 0.02 X10^3/uL; Basophil% 0.3 % (0-1); Eosinophil# 0.12 X10^3/uL; Hematocrit 45.9 % (40-54); Hemoglobin 14.6 g/dL (13.0-16.5); Lymphocyte # 1.39 X10^3/ul (0.83-4.51); Lymphocyte % 22.9 % (19-41); Mean Corp Hgb Conc 31.8 g/dL (32-36); Mean Corpuscular Hgb 30.7 pg (27.0-32.0); Mean Corpuscular Volume 96.4 fL (80-94); Mean Platelet Vol. 12.1 fl (6.2-12.0); Monocyte# 0.46 X10^3/uL; Monocyte% 7.6 % (0-10); NRBC Flagged by Analyzer 0 % (0-5); Neutrophil # 4.07 X10^3/uL (2.7-7.7); Platelet Count 146 K/mm3 (150-450); RBC Distribution Width CV 13.5 % (11.6-14.6); RBC Distribution Width SD 47.8 fl (35.1-43.9); Red Blood Count 4.76 M/mm3 (4.6-6.2); White Blood Count 6.1 K/mm3 (4.4-11.0)
[2023-03-19 07:55] LABS: Anion Gap 4 (5-15); BUN 7 mg/dL (7-18); BUN/Creat Ratio 6.9 RATIO (10-20); Calcium,Total 9.2 mg/dL (8.5-10.1); Chloride 107 mmol/L (98-107); Creatinine, Serum 1.01 mg/dL (0.70-1.30); EST Glomerular Filtration Rate 79 mL/min (>60); Est Glom Filt Rate - Afr Amer 95 mL/min (>60); Estimated Creatinine Clearance 85.51 ml/min; Glucose 91 mg/dL (74-106); Potassium 3.6 mmol/L (3.5-5.1); Sodium Level 140 mmol/L (136-145)
--- NOTE | 2023-03-19 08:14 | PN.HOSP_ITS ---
Reason for Visit Reason for Visit: Diagnoses Diarrhea, unspecified (03/16/23) Subjective Subjective No further diarrhea. Tolerating diet. Has had a raspy voice for years. Did have shortness of breath when he initially arrived but that is subsequent resolved. Objective Data Objective Data Vital Signs: Vital Signs Temp Pulse Resp BP Pulse Ox O2 Del Method O2 Flow Rate 36.8 C 84 23 H 161/88 H 92 Room Air 2 03/19/23 05:03/19/23 07:17 03/19/23 07:03/19/23 05:03/19/23 07:03/19/23 07:17 03/18/23 14:05 Oxygen Flow Rate (L/min) 2 Oxygen Delivery Method Room Air Weight: 98.5 kg Body Mass Index (BMI) 32.1 Intake & Output: Intake and Output for Last 24 Hours 03/17/23 03/18/23 03/19/23 23:59 23:59 23:59 Intake Total 3585.42 / 3585.42 1001.5 / 1001.5 200 / 200 Output Total 0 / 0 Balance 3585.42 / 3585.42 1001.5 / 1001.5 200 / 200 Lab / Micro Data 03/19/23 06:36 03/19/23 06:36 Labs: Laboratory Results - last 24 hr 03/19/23 06:36: WBC 6.1, RBC 4.76, Hgb 14.6, Hct 45.9, MCV 96.4 H, MCH 30.7, MCHC 31.8 L, RDW Std Deviation 47.8 H, RDW Coeff of Nick 13.5, Plt Count 146 L, MPV 12.1 H, Immature Gran % (Auto) 0.200, Neut % (Auto) 67.0, Lymph % (Auto) 22.9, [place] % (Auto) 7.6, Eos % (Auto) 2.0, Baso % (Auto) 0.3, Absolute Neuts (auto) 4.1, Absolute Lymphs (auto) 1.39, Nucleated RBC % 0, Sodium 140, Potassi um 3.6, Chloride 107, Carbon Dioxide 29.0, Anion Gap 4 L, BUN 7, Creatinine 1 .01, Estim Creat Clear Calc 85.51, Est GFR (MDRD) Af Amer 95, Est GFR (MDRD) Non-Af 79, BUN/Creatinine Ratio 6.9 L, Glucose 91, Calcium 9.2 Micro: Microbiology 03/16/23 13:43 Blood Culture (Wb) - Anticubital Right Blood Culture - Preliminary No growth in 48 hours. 03/16/23 13:35 Blood Culture (Wb) - Anticubital Left Blood Culture - Preliminary No growth in 48 hours. 03/16/23 14:10 Urine, Catheterized Urine Culture - Final Culture exhibits no growth. 03/16/23 11:30 Stool Enteric Bacteriology - Final 03/17/23 11:30 Stool Stool Lactoferrin - Final 03/17/23 11:30 Stool Stool Occult Blood (FRANCESCA) - Final 03/16/23 14:10 Urine, Clean Catch Streptococcus pneumoniae Antigen (M - Final 03/16/23 14:10 Urine, Clean Catch Legionella Antigen - Final Physical Exam Const alert and no apparent distress Constitutional Narrative: Sitting up in bed drinking coffee. No conversational dyspnea. No respiratory distress. HEENT head/scalp atraumatic and moist oral mucous membranes Resp no use of accessory muscles Assessment & Plan Assessment/Plan (1) Diarrhea: QUALIFIERS: Diarrhea type: unspecified type Qualified Code(s): R19.7 - Diarrhea, unspecified PLAN: Plan Acute diarrhea and abdominal cramps * possible small bowel inflammation/infectious cause, exact etiology unclear: * CT abdomen with IV contrast distal small bowel thickening, fluid distention with mesenteric edema. Colonic diverticulosis without diverticulitis. 4.6 cm right sinus and cortical renal cyst. * discussed with the cnc grinder Dr. Beauchamp. Consult requested. * Stool studies: infectious work up negative. Lactoferrin negative. C. diff test cancelled because of hard stool. C. diff essentially ruled out. * EGD showed mild inflammation in the ileum s/s ileitis which was biopsied. SAUL Beauchamp, he feels it is less likely Crohn's disease. No treatment at this time. Await on Bx results. Esophagitis * Non-severe actue esophagitis w/o bleeding. No gross lesions in the entire stomach. * SAUL Beauchamp, recommends PPI. * Patient are taking omeprazole twice daily. Recommend continue with but also recommended dietary changes and including minimizing caffeine, minimizing to no alcohol, not eating several hours prior to going to sleep as well as using a wedge pillow to keep them propped up. Chronic conditions: * Persistent asthma, severe with no exacerbation and obstructive sleep apnea. Patient follows in pulmonary clinic with Dr. Nayak and Karen Lora, EP[facility]ANIO. Was recommended low-salt diet, AutoPap and weight loss and inhaler Spiriva. Continue CPAP at night. Bronchodilator DuoNeb as needed for wheezing/airway spasm. Monitor pulse ox. Patient had spirometry/PFT in August 2022 which was reported unreliable result with inconsistent and did not meet criteria for acceptability and reproducibility. Plethysmography showed mild restriction, TLC 76% predicted, FRC 69%, RV/TLC 94%, VC 69%. No evidence of hyperinflation. DLCO 81% predicted.03/17: Wheezing and stridor better. AutoPap * Chronic HFpEF/diastolic heart failure and right carotid stenosis: I do not see any echo report in our system but patient might had outside. Does not need acute echo studies. Patient has moderate right extracranial ICA and normal left ICA. Patient is on baby aspirin and Plavix. Patient on diuretic Lasix, spironolactone, rosuvastatin, isosorbide mononitrate, and Zetia * Cricopharyngeal dysphagia: Patient has history of recurrent trouble swallowing and has seen Dr. Beauchamp in the office in November 2020. Patient had extensive evaluation including CT of the chest, CT of the neck which did not show any gross abnormality. History of Graves' disease status post thyroidectomy. On thyroid replacement treatment. No history of GERD. He was referred to [facility]. EGD on 11/23/2020 shows LA grade B reflux esophagitis, normal stomach and D2. He also had dilatation of cricopharyngeal dysphagia. Patient had modified barium swallow which was reported mild oropharyngeal phase dysphagia. There was also concern was a spasm of vocal cords. Patient was referred to pulmonology and ENT. * Parkinson disease: Patient on carbidopa levodopa.He is also on carbidopa levodopa.He follows neurologist Dr. Hernandez. * Patient with a chronic raspy voice: Unclear this is due to just aging or this may be related with reflux. Can follow-up with ENT as needed. DVT prophylaxis, moderate risk: Enoxaparin 40 mill subcu daily.
[2023-03-19] MEDS: Clopidogrel Bisulfate 75 MG Tablet PO (10:02)
[2023-03-19] MEDS: Pantoprazole Sodium 40 MG Tablet PO (10:03)
[2023-03-19] MEDS: Tamsulosin HCl 0.4 MG Capsule 0.400000000000000022 MG PO (10:03)
[2023-03-19] MEDS: Metoprolol(XL)Succ 25 MG Tablet 12.5 MG PO (10:03)
[2023-03-19] MEDS: Isosorbide Mononitrate 60 MG Tablet 90 MG PO (10:03)
[2023-03-19] MEDS: Aspirin 81 MG TAB.CHEW PO (10:03)
[2023-03-19] MEDS: Atorvastatin Calcium 10 MG Tablet PO (10:03)
[2023-03-19] MEDS: Ezetimibe 10 MG Tablet PO (10:04)
[2023-03-19] MEDS: Spironolactone 25 MG Tablet PO (10:04)
[2023-03-19] MEDS: Menthol/Lanolin/Calamine/Znox 113 GM Tube 1 APPLIC TOPICAL (10:04)
--- NOTE | 2023-03-19 10:23 | DS.PCM_ITS ---
Providers Date of Admission: 03/16/23 Primary Care Physician: Dr. Cisco Dozier, Consultations 03/16/23 15:32 Consult: Gastroenterology Routine Consulting Provider: [facility] Reason for Consult: diarrhea/abd cramps for 10 days EMERGENT Consult: No MD Notified: Yes Date Notified: 03/16/23 Time Notified: 14:53 Method of Notification: Verbal Reason For Visit: PERSISTANT DIARRHEA Diagnosis Discharge Diagnosis (1) Diarrhea: Status: Acute Code(s): R19.7 - Diarrhea, unspecified Qualifiers: Diarrhea type: unspecified type Qualified Code(s): R19.7 - Diarrhea, unspecified Plan Acute diarrhea and abdominal cramps * possible small bowel inflammation/infectious cause, exact etiology unclear: * CT abdomen with IV contrast distal small bowel thickening, fluid distention with mesenteric edema. Colonic diverticulosis without diverticulitis. 4.6 cm right sinus and cortical renal cyst. * discussed with the human capital manager Dr. Beauchamp. Consult requested. * Stool studies: infectious work up negative. Lactoferrin negative. C. diff test cancelled because of hard stool. C. diff essentially ruled out. * EGD showed mild inflammation in the ileum s/s ileitis which was biopsied. SAUL Beauchamp, he feels it is less likely Crohn's disease. No treatment at this time. Await on Bx results. Esophagitis * Non-severe actue esophagitis w/o bleeding. No gross lesions in the entire stomach. * SAUL Beauchamp, recommends PPI. * Patient are taking omeprazole twice daily. Recommend continue with but also recommended dietary changes and including minimizing caffeine, minimizing to no alcohol, not eating several hours prior to going to sleep as well as using a wedge pillow to keep them propped up. Chronic conditions: * Persistent asthma, severe with no exacerbation and obstructive sleep apnea. Patient follows in pulmonary clinic with Dr. Nayak and Karen Lora, EPIFANIO. Was recommended low-salt diet, AutoPap and weight loss and inhaler Spiriva. Continue CPAP at night. Bronchodilator DuoNeb as needed for wheezing/airway spasm. Monitor pulse ox. Patient had spirometry/PFT in August 2022 which was reported unreliable result with inconsistent and did not meet criteria for acceptability and reproducibility. Plethysmography showed mild restriction, TLC 76% predicted, FRC 69%, RV/TLC 94%, VC 69%. No evidence of hyperinflation. DLCO 81% predicted.03/17: Wheezing and stridor better. AutoPap * Chronic HFpEF/diastolic heart failure and right carotid stenosis: I do not see any echo report in our system but patient might had outside. Does not need acute echo studies. Patient has moderate right extracranial ICA and normal left ICA. Patient is on baby aspirin and Plavix. Patient on diuretic Lasix, spironolactone, rosuvastatin, isosorbide mononitrate, and Zetia * Cricopharyngeal dysphagia: Patient has history of recurrent trouble swallowing and has seen Dr. Beauchamp in the office in November 2020. Patient had extensive evaluation including CT of the chest, CT of the neck which did not show any gross abnormality. History of Graves' disease status post thyroidectomy. On thyroid replacement treatment. No history of GERD. He was referred to [facility]. EGD on 11/23/2020 shows LA grade B reflux esophagitis, normal stomach and D2. He also had dilatation of cricopharyngeal dysphagia. Patient had modified barium swallow which was reported mild oropharyngeal phase dysphagia. There was also concern was a spasm of vocal cords. Patient was referred to pulmonology and ENT. * Parkinson disease: Patient on carbidopa levodopa.He is also on carbidopa levodopa.He follows neurologist Dr. Hernandez. * Patient with a chronic raspy voice: Unclear this is due to just aging or this may be related with reflux. Can follow-up with ENT as needed. DVT prophylaxis, moderate risk: Enoxaparin 40 mill subcu daily. Medications at Discharge Home Medications omeprazole 40 mg capsule,delayed release 40 mg PO BID gerd #120 caps 11/18/20 albuterol sulfate 90 mcg/actuation aerosol inhaler 2 puff inhalation Q6H PRN shortness of breath or wheezing #6.7 grams 11/23/20 levothyroxine 150 mcg tablet (Synthroid) 150 mcg PO DAILY thyroid 01/13/21 aspirin 81 mg chewable tablet (Luis Alberto Chewable Low Dose Aspirin) 81 mg PO DAILY heart health 01/24/22 clopidogrel 75 mg tablet 75 mg PO DAILY anit platelet 01/24/22 ezetimibe 10 mg tablet 10 mg PO DAILY as prescribed 01/24/22 metoprolol succinate 25 mg tablet,extended release 24 hr 12.5 mg PO DAILY bp 1 03/27/21 rosuvastatin 5 mg tablet 5 mg PO DAILY cholesterol 01/24/22 tamsulosin 0.4 mg capsule 0.4 mg PO BID prostate 05/17/22 furosemide 40 mg tablet (Lasix) 40 mg PO DAILY diuretic 06/04/22 isosorbide mononitrate 60 mg tablet,extended release 24 hr 60 mg PO DAILY heart 06/04/22 spironolactone 25 mg tablet 25 mg PO DAILY diuretic 06/04/22 Bilateral knee-high compression stockings (10-20) #2 ea 07/02/22 Handicap placard #1 ea 10/01/22 atropine 1 % eye drops See Rx Instructions buccal DAILY eyes #10 mL 01/31/23 carbidopa 25 mg-levodopa 100 mg tablet 2 tab PO TID parkinsons #540 tabs budesonide-formoterol HFA 160 mcg-4.5 mcg/actuation aerosol inhaler (Symbicort) 2 puff inhalation BID as directed #1 ea 02/12/23 Hospital Course Operations None Procedures Colonoscopy and EGD Summary of Care Provided Minutes Spent on Discharge: 32 Weight / BMI Weight Weight: 98.5 kg Body Mass Index (BMI) 32.1 ABG / Lab / Microbiology Data 03/19/23 06:36 03/19/23 06:36 Laboratory: Laboratory Results - last 24 hr 03/19/23 06:36: WBC 6.1, RBC 4.76, Hgb 14.6, Hct 45.9, MCV 96.4 H, MCH 30.7, MCHC 31.8 L, RDW Std Deviation 47.8 H, RDW Coeff of Nick 13.5, Plt Count 146 L, MPV 12.1 H, Immature Gran % (Auto) 0.200, Neut % (Auto) 67.0, Lymph % (Auto) 22.9, Guadalupe % (Auto) 7.6, Eos % (Auto) 2.0, Baso % (Auto) 0.3, Absolute Neuts (auto) 4.1, Absolute Lymphs (auto) 1.39, Nucleated RBC % 0, Sodium 140, Potassium 3.6, Chloride 107, Carbon Dioxide 29.0, Anion Gap 4 L, BUN 7, Creatinine 1.01, Estim Creat Clear Calc 85.51, Est GFR (MDRD) Af Amer 95, Est GFR (MDRD) Non-Af 79, BUN/Creatinine Ratio 6.9 L, Glucose 91, Calcium 9.2 Microbiology: Microbiology 03/16/23 13:43 Blood Culture (Wb) - Anticubital Right Blood Culture - Preliminary No growth in 48 hours. 03/16/23 13:35 Blood Culture (Wb) - Anticubital Left Blood Culture - Preliminary No growth in 48 hours. 03/16/23 14:10 Urine, Catheterized Urine Culture - Final Culture exhibits no growth. 03/16/23 11:30 Stool Enteric Bacteriology - Final 03/17/23 11:30 Stool Stool Lactoferrin - Final 03/17/23 11:30 Stool Stool Occult Blood (FRANCESCA) - Final 03/16/23 14:10 Urine, Clean Catch Streptococcus pneumoniae Antigen (M - Final 03/16/23 14:10 Urine, Clean Catch Legionella Antigen - Final D/C Instructions Discharge Diet: - (Minimize red meat, pork products, spicy foods, alcohol and caffeine. Do not eat about 4 hours prior to going to sleep.) Meaningful Use Info Meaningful Use Diagnoses (Choose all that apply): None applicable Discharge Plan Admission Admit Date/Time: 03/16/23 13:47 Primary Reason for Your Visit: Diarrhea Attending Provider: Harrison Spears Primary Care Provider: Cisco Dozier Consulting Providers: Delfin Russell Instructions Additional Instructions / Restrictions: Please follow-up with Dr. Beauchamp for results of your biopsies from your procedures that you had while you are here. The colonoscopy did show some ileitis, which is inflammation of the latter portion of your colon. Unclear with the significance of that. You do have esophagitis, inflammation of your esophagus. Continue taking your omeprazole but also try using a wedge pillow when you go to sleep to keep yourself propped up. You may have chronic esophagitis that may be due to severe reflux and using wedge pillow may help minimize that. Discharge Orders/Prescriptions Prescriptions: Continued tamsulosin 0.4 mg capsule 0.4 mg PO BID furosemide [Lasix] 40 mg tablet 40 mg PO DAILY spironolactone 25 mg tablet 25 mg PO DAILY (DME) Bilateral knee-high compression stockings (10-20) See Rx Instructions .Route .MEDSUPPLY Qty: 2 0RF Rx Instructions: As directed carbidopa-levodopa 25-100 mg tablet 2 tab PO TID Qty: 540 2RF atropine 1 % drops See Rx Instructions buccal DAILY Qty: 10 2RF Rx Instructions: Take 1 to 2 drops buccally daily levothyroxine [Synthroid] 150 mcg tablet 150 mcg PO DAILY clopidogrel 75 mg tablet 75 mg PO DAILY aspirin [Luis Alberto Chewable Aspirin] 81 mg tablet,chewable 81 mg PO DAILY Patient Comments: 1 tablet by mouth once a day metoprolol succinate 25 mg tablet extended release 24 hr 12.5 mg PO DAILY ezetimibe 10 mg tablet 10 mg PO DAILY rosuvastatin 5 mg tablet 5 mg PO DAILY isosorbide mononitrate 60 mg tablet extended release 24 hr 60 mg PO DAILY Rx Instructions: Take one and 1/2 tab in AM omeprazole 40 mg capsule,delayed release(DR/EC) 40 mg PO BID Qty: 120 0RF Rx Instructions: Take one cap by mouth two times a day for eight weeks. Then will taper. albuterol sulfate 90 mcg/actuation HFA aerosol inhaler 2 puff inhalation Q6H PRN (Reason: shortness of breath or wheezing) Qty: 6.7 0RF (DME) Handicap placard See Rx Instructions .Route .MEDSUPPLY Qty: 1 0RF Rx Instructions: Expiration: 10/01/2025 budesonide-formoterol [Symbicort] 160-4.5 mcg/actuation HFA aerosol inhaler 2 puff inhalation BID Qty: 1 0RF Rx Instructions: administer with spacer, rinse mouth after each use Referrals / Follow Up: Cisco Dozier DO [Primary Care Provider] - Within 2 Weeks [facility] [Provider Group] - Within 2 Weeks Disposition Disposition (needs filled in before D/C Order can be placed): Home, Self Care Charges/Coding Visit Charges Inpatient E&M: 45406 Disch Hosp >30min
--- NOTE | 2023-03-19 10:39 | PHA.DC.MR.R ---
Pharmacy [place] Med Reconciliation Pharmacy Service has performed discharge medication reconciliation for this patient. The patient's discharge medication list was reviewed for discrepancies and discrepancies were resolved. Medications at Discharge Home Medications omeprazole 40 mg capsule,delayed release 40 mg PO BID gerd #120 caps 11/18/20 albuterol sulfate 90 mcg/actuation aerosol inhaler 2 puff inhalation Q6H PRN shortness of breath or wheezing #6.7 grams 11/23/20 levothyroxine 150 mcg tablet (Synthroid) 150 mcg PO DAILY thyroid 01/13/21 aspirin 81 mg chewable tablet (Luis Alberto Chewable Low Dose Aspirin) 81 mg PO DAILY heart health 01/24/22 clopidogrel 75 mg tablet 75 mg PO DAILY anit platelet 01/24/22 ezetimibe 10 mg tablet 10 mg PO DAILY as prescribed 01/24/22 metoprolol succinate 25 mg tablet,extended release 24 hr 12.5 mg PO DAILY bp 01/24/22 rosuvastatin 5 mg tablet 5 mg PO DAILY cholesterol 01/24/22 tamsulosin 0.4 mg capsule 0.4 mg PO BID prostate 05/17/22 furosemide 40 mg tablet (Lasix) 40 mg PO DAILY diuretic 06/04/22 isosorbide mononitrate 60 mg tablet,extended release 24 hr 60 mg PO DAILY heart 06/04/22 spironolactone 25 mg tablet 25 mg PO DAILY diuretic 06/04/22 Bilateral knee-high compression stockings (10-20) #2 ea 07/02/22 Handicap placard #1 ea 10/01/22 atropine 1 % eye drops See Rx Instructions buccal DAILY eyes #10 mL 01/31/23 carbidopa 25 mg-levodopa 100 mg tablet 2 tab PO TID parkinsons #540 tabs 01/31/23 budesonide-formoterol HFA 160 mcg-4.5 mcg/actuation aerosol inhaler (Symbicort) 2 puff inhalation BID as directed #1 ea 02/12/23
[2023-03-19] MEDS: Ipratropium/Albuterol Sulfate 3 ML AMPUL.NEB INHALATION (11:26)
--- NOTE | 2023-03-19 11:29 | CASEMGMT ---
Social Work SW spoke w/pt, he does believe he has completed LW/POA, named his as POA. SW asked him to bring in the paperwork should he be back in the hospital, pt states understanding. MAXIMUS Hammond
[2023-03-22 00:07] LABS: Calprotectin, Stool 290 ug/g (0-120)
== END 2023-03-19 11:53 | disposition home or self-care (01) | DRG 392 ==
LOC: ED 13:23 → MS3 14:05
PROVIDERS: Anesthesiology; Internal Medicine Gastroenterology; Admitting Provider Internal Medicine; Emergency Provider Emergency Medicine; PCP Family Medicine
PROC: 0DJD8ZZ Inspection of Lower Intestinal Tract, Via Natural or Artificial Opening Endoscopic (ICD-10-PCS; CPT 45378; principal; 2023-03-18 11:25)
DX: K52.9 Noninfective gastroenteritis and colitis, unspecified (principal); B37.0 Candidal stomatitis; I50.32 Chronic diastolic (congestive) heart failure; G20.A1 Parkinson's disease without dyskinesia, without mention of fluctuations; J45.50 Severe persistent asthma, uncomplicated; I65.21 Occlusion and stenosis of right carotid artery; E89.0 Postprocedural hypothyroidism; K57.30 Diverticulosis of large intestine without perforation or abscess without bleeding; E78.00 Pure hypercholesterolemia, unspecified; I25.10 Atherosclerotic heart disease of native coronary artery without angina pectoris; G47.33 Obstructive sleep apnea (adult) (pediatric); I95.1 Orthostatic hypotension; F17.210 Nicotine dependence, cigarettes, uncomplicated; K21.00 Gastro-esophageal reflux disease with esophagitis, without bleeding; R13.13 Dysphagia, pharyngeal phase; N40.1 Benign prostatic hyperplasia with lower urinary tract symptoms; R33.8 Other retention of urine; N28.1 Cyst of kidney, acquired; Z79.82 Long term (current) use of aspirin; Z79.51 Long term (current) use of inhaled steroids; Z79.02 Long term (current) use of antithrombotics/antiplatelets
CPT/HCPCS: 36415; 71045; 71275; 74177; 80048; 80076; 81001; 82274; 83605; 83630; 83690; 83735; 83880; 83993; 84100; 84443; 84484; 85025; 87040; 87086; 87177; 87209; 87329; 87449; 87493; 87506; 88305; 93005; 94640; 94668; 99285; 99406; J7030; J7050; J7120; Q9967; A4216

== ENCOUNTER → 2023-03-28 | Outpatient (CLI) | payer OTHER, SELFPAY ==
--- OUTSIDE RECORDS SUMMARY | 2023-03-28 12:34 | XMS RPT_ITS | CCD ---
Author Name Unknown Address [address] [place] [address] Organization [facility] Care Team Providers Care Practice Lead Name Role Phone Cisco Dozier Unavailable Unavailable Unavailable Unavailable Unavailable Cisco Dozier Unavailable Yvan Walker Unavailable Unavailable Macario Bond Unavailable Unavailable Princess Mireille Unavailable Unavailable Giovanni Cantu Unavailable Cara Dorantes Unavailable Dr. Cisco Dozier Primary Care UnavailAlfa [place] Attending CINTHIA Brandt Referring Unavailable CINTHIA APPIAH Attending Unavailable Dr. Cisco Dozier Primary Care UnavailDr. Cisco Messina Primary Care UnavailNEVIN Richards Attending Unavailable Dr. Cisco Dozier Primary Care NEVIN Metz Attending Unavailable Allergies Allergy Classification Reported Allergen(s) Allergy Type Date of Onset Reaction(s) Facility (20 sources) [facility] TABS; Translations: [[facility] TABS] Allergy to drug (finding) TW-Atckosz-Hx hland Work Phone: Medications Current Medications Medication [...] Allowed docusate sodium 50 mg / sennosides, longterm 8.6 mg oral tablet (1 source) Start: 06-08-2021 take 2 tablets by mouth twice daily sennosides-docusat e 8.6 mg-50 mg oral tablet ; 2 tab(s) orally 2 times a day Quantity: 0 Refills: 0 Ordered: 08-Jun-2021 Leandra Pollack Start: 08-Jun-2021 Generic Substitution Allowed empagliflozin 10 mg oral tablet (1 source) Sodium-Glucose Cotransporter 2 Inhibitor Start: 06-08-2021 End: 08-06-2021 take 1 tablet by mouth once daily [...] on substance use and abuse] Episodic Asthma (17 sources) Asthma; Translations: [Asthma, unspecified type, unspecified] Chronic Complications of surgical procedures or medical care (20 sources) Postoperative hypothyroidism; Translations: [Postsurgical hypothyroidism] Chronic Congestive heart failure; nonhypertensive (2 sources) Acute on chronic diastolic heart failure; Translations: [Acute on chronic diastolic heart failure] 06-07-2021 Chronic Coronary atherosclerosis and other heart disease (20 sources) Coronary arteriosclerosis; Translations: [Coronary atherosclerosis of unspecified type of vessel, [place] or graft] Onset: Chronic Coronary atherosclerosis and other heart disease (1 source) Coronary atherosclerosis and other heart disease 06-06-2021 Disorders of lipid metabolism (20 sources) Hyperlipoproteinemia; [...] urinary tract symptoms (LUTS)] Chronic Immunity disorders (1 source) 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; 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] Onset: 2 Chronic Immunizations and screening for infectious disease (1 source) Contact with or exposure to other viral diseases Onset: 2 06-06-2021 Episodic Mycoses (20 sources) Mycosis; Translations: [Other and unspecified mycoses] Episodic Nonspecific chest pain (2 sources) Chest pain; Translations: [Chest pain, unspecified] 06-03-2021 Episodic Other aftercare (1 source) Drug indicated; Translations: [Long-term (current) use of other medications] Onset: 2 06-06-2021 Episodic Other aftercare (1 source) Drug therapy finding; Translations: [Long-term (current) use of steroids] Onset: 2 06-06-2021 Episodic Other aftercare (1 source) 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; Translations: [Other half-way (current) drug therapy] Onset: 2 Episodic Other gastrointestinal disorders (1 source) Abdominal distension, gaseous; Translations: [Flatulence, eructation, and gas pain] Onset: 2 06-06-2021 Episodic Other lower respiratory disease (20 sources) Difficulty breathing; Translations: [Other respiratory abnormalities] Episodic Other lower respiratory disease (4 sources) Dyspnea; Translations: [Other respiratory abnormalities] Onset: 06-03-2021 Episodic Past or Other Problems Problem Classification Problem Date Documented Da te Episodic/Chronic Cardiac dysrhythmias (20 sources) Tachycardia; Translations: [Tachycardia, unspecified] Onset: 06-06-2021 06-06-2021 Episodic Coronary atherosclerosis and other heart disease (2 sources) Presence of coronary angioplasty implant and graft; Translations: [Presence of coronary angioplasty implant and graft] Onset: 12-09-2021 Episodic Other lower respiratory disease (3 sources) Shortness of breath; Translations: [Shortness of breath] Onset: 12-09-2021 Episodic Other screening for suspected conditions (not mental disorders or infectious disease) (20 sources) Raised cardiac enzyme or marker; Translations: [Other abnormal blood chemistry] Onset: 06-06-2021 06-06-2021 Episodic Results Test Name Value Interpretation Reference Range Facil ity Vital Signs Date Time Vital Sign Value Performing Clinician Faci lity 09-25-2022 16:10-0400 Body height 175.26 cm Cisco Moore [employer] Work Phone: KZ-Aghzfumrhy-Tfpy na 140 [place] Work Phone: 09-25-2022 16:10-0400 Body mass index (BMI) [Ratio] 32.49 kg/m2 Cisco Moore [employer] Work Phone: IR-Aievfcjgnd-Aonx na 140 [place] Work Phone: 09-25-2022 16:10-0400 Body surface area Derived from formula 2.15 m2 Cisco Moore [employer] Work Phone: OY-Uemtqkfjcd-Rycx na 140 [place] Work Phone: 09-25-2022 16:10-0400 Body weight 99.79 kg Cisco Moore [employer] Phone: LE-Fjlcuothet-Whtj na 140 [place] Work Phone: 09-25-2022 16:10-0400 Diastolic blood pressure 73 mm[Hg] Cisco Moore [employer] Work Phone: DP-Byjbbkqkif-Smli na 140 [place] Work Phone: 09-25-2022 16:10-0400 Heart rate 67 /min Cisco Moore [employer] Work Phone: SO-Gprwpbwwrb-Mfaz na 140 [place] Work Phone: 09-25-2022 16:10-0400 SaO2% (BldA) [Mass fraction] 98 % Cisco Moore [facility] Work Phone: OJ-Gukuzmgpko-Asfi na 140 [place] Work Phone: 09-25-2022 16:10-0400 Systolic blood pressure 115 mm[Hg] Cisco Moore [facility] Work Phone: ZT-Ygrmhouimm-Ztvf na 140 [place] Work Phone: 03-28-2022 13:11-0500 Body mass index (BMI) [Ratio] 34.74 kg/m2 Cisco Moore [employer] Work Phone: FM-Lncktci-Rgzqcpa Work Phone: 03-28-2022 13:11-0500 Body surface area Derived from formula 2.21 m2 Cisco Moore [employer] Work Phone: TP-Tipuiwc-Cpccyat Work Phone: 03-28-2022 13:11-0500 Body weight 106.71 kg Cisco Moore [employer] Work Phone: CM-Rftoiwi-Pdwjusi Work Phone: 03-28-2022 13:11-0500 Diastolic blood pressure 75 mm[Hg] Cisco Moore [employer] Work Phone: IJ-Mnzwsjn-Upovhgi Work Phone: 03-28-2022 13:11-0500 Heart rate 71 /min Cisco Moore [employer] Work Phone: WF-Jkglzjc-Imuabxm Work Phone: 03-28-2022 13:11-0500 Systolic blood pressure 123 mm[Hg] Cisco Moore [employer] Work Phone: DR-Jvfckfa-Fybvvcv Work Phone: 03-27-2022 15:45-0500 Body height 175.26 cm Cisco CHORD Work Phone: UH-Xuqscewgym-Ilzg na 140 [place] Work Phone: 03-27-2022 15:45-0500 Body mass index (BMI) [Ratio] 33.97 kg/m2 Cisco CHORD Work Phone: KS-Rumbszvyjn-Btdq na 140 [place] Work Phone: 03-27-2022 15:45-0500 Body surface area Derived from formula 2.19 m2 Cisco CHORD Work Phone: CS-Ykfprvfwyl-Ewkh na 140 [place] Work Phone: 03-27-2022 15:45-0500 Body weight 104.33 kg Cisco [facility] Phone: DM-Wqokeksean-Qjmk na 140 [place] Work Phone: 03-27-2022 15:45-0500 Diastolic blood pressure 67 mm[Hg] Cisco CHORD Work Phone: XC-Pxplqleknp-Xfps na 140 [place] Work Phone: 03-27-2022 15:45-0500 Heart rate 64 /min Cisco [facility] Phone: BA-Hqkrurperh-Qnyr na 140 [place] Work Phone: 03-27-2022 15:45-0500 SaO2% (BldA) [Mass fraction] 96 % [facility] Work Phone: AO-Mxkdligwgc-Jsli na 140 [place] Work Phone: 03-27-2022 15:45-0500 Systolic blood pressure 103 mm[Hg] Cisco CHORD Work Phone: QV-Ozgnyfslau-Bapp na 140 [place] Work Phone: 02-07-2022 13:45-0500 Body height 175.26 cm Cisco CHORD Work Phone: [facility] [facility] Work Phone: 02-07-2022 13:45-0500 Body mass index (BMI) [Ratio] 33.57 kg/m2 Cisco Moore [employer] Work Phone: [facility] Work Phone: 02-07-2022 13:45-0500 Body surface area Derived from formula 2.18 m2 Cisco Moore [employer] Work Phone: [facility] Work Phone: 02-07-2022 13:45-0500 Body temperature 97.9 [degF] Cisco Moore [employer] Work Phone: [facility] Work Phone: 02-07-2022 13:45-0500 Body weight 103.11 kg Cisco Moore [employer] Work Phone: [facility] Work Phone: 02-07-2022 13:45-0500 Diastolic blood pressure 73 mm[Hg] Cisco Moore [employer] Work Phone: [facility] Work Phone: 02-07-2022 13:45-0500 Heart rate 70 /min Cisco Moore [employer] Work Phone: [facility] Work Phone: 02-07-2022 13:45-0500 SaO2% (BldA) [Mass fraction] 96 % Cisco Moore [employer] Work Phone: [facility] Work Phone: 02-07-2022 13:45-0500 Systolic blood pressure 111 mm[Hg] Cisco Moore [employer] Work Phone: [facility] Work Phone: 02-07-2022 [id number] Cisco Dozier Work Phone: [facility] Work Phone: Encounters Encounter Date Encounter Type Care Provider Facility Start: 11-06-2022 AUDIT Cisco A Stutzma n Work Phone: TG-Hbufbot-Mdmjhve Work Phone: Start: 11-03-2022 AUDIT Cisco A Stutzma n Work Phone: LP-Xmzpyaykub-Pdjgr Work Phone: Start: 09-25-2022 Office outpatient vi sit 15 minutes Cisco Dozier Work Phone: IT-Zeihyacmeb-Owozsx 140 [place] Work Phone: Start: 09-25-[address] Cisco Dozier Facility:[id number] Start: 09-21-2022 AUDIT Cisco A Stutzma n Work Phone: ID-Mhwtigmkwc-Hnuoyt 140 [place] Work Phone: Start: 09-10-2022 AUDIT Cisco A Stutzma n Work Phone: IB-Bgfrncfxne-Qdrqr Work Phone: Start: 06-07-2022 AUDIT Cisco A Stutzma n Work Phone: YS-Jjwfpvetnb-Qpujn Work Phone: Start: 05-09-2022 AUDIT Cisco A Stutzma n Work Phone: QO-Ipcxbucihd-Ssvmrt 140 [place] Work Phone: Start: 03-28-2022 FUV, Provider: Cinthia Appiah II, Status: Pen, Time: 1:15 PM Cisco Moore Tasia Work Phone: AE-Dcalnhkjbc-Vrtict 140 [place] Work Phone: Start: 03-28-2022 Office outpatient vi sit 25 minutes Cisco A Tasia Work Phone: FI-Zyfcjzb-Nfdlzks Work Phone: Start: 03-28-2022 ambulatory CINTHIA APPIAH Facility:[id number] Start: 03-27-2022 Office outpatient vi sit 25 minutes Cisco Dozier Work Phone: MM-Mgmfcrlqsb-Qegbzq 140 [place] Work Phone: Start: 03-27-[address] Cisco Dozier Facility:[id number] Start: 03-09-2022 AUDIT Cisco Moore Strich[facility] n Work Phone: GJ-Pyxgtzo-Uwihdxd Work Phone: Start: 02-07-2022 Patient encounter procedure Cisco Dozier Work Phone: [facility] Work Phone: Start: 01-25-2022 Chart Update Cisco Reesma n Work Phone: [facility] [facility] Work Phone: Start: 01-08-2022 Office outpatient vi sit 15 minutes Cisco Dozier Work Phone: [facility] Work Phone: Start: 01-08-2022 Patient encounter procedure Cisco Dozier Work Phone: [facility] Work Phone: Start: 12-25-2021 Chart Update Cisco Moore [place] Work Phone: NL-Ebdenebavb-Ktmlzo 140 [place] Work Phone: Start: 12-14-2021 AUDIT Cisco Teresa Strichardma n Work Phone: VH-Gcgervhxls-Nsmgc Work Phone: Start: 12-09-2021 End: 12-09-2021 Emergency department patient visit Dr. Cisco Dozier Facility:[id number] Start: 12-08-2021 ADLTPSG, Provider: [facility] RM 2,[id number], Status: Pen, Time: 8:00 PM Cisco Dozier Work Phone: AR-Bxwprojdfw-Yirrk Work Phone: Start: 12-08-2021 AUDIT Cisco A Stutzma n Work Phone: YG-Bfpfycgrvt-Cfznoe 140 [place] Work Phone: Start: 12-07-2021 Chart Update Cisco Moore Strichardma n Work Phone: YZ-Vbkjmysxyw-Zankp Work Phone: Start: 11-27-2021 Office outpatient vi sit 25 minutes Cisco Dozier Work Phone: MG-Pulm Sleep-[facility] [address] [place] Work Phone: Start: 11-27-2021 Patient encounter procedure Cisco Dozier Work Phone: [facility] Work Phone: Start: 11-22-2021 AUDIT Cisco Reesma n Work Phone: PH-Wapgbpmdu-Pqygi 204 Work Phone: Start: 11-14-2021 Office outpatient ne w 45 minutes Cisco Dozier Work Phone: HU-Lpoyzfyqjd-Kgbzby 140 [place] Work Phone: Start: 11-01-2021 Patient encounter procedure Cisco Dozier Work Phone: MP-P[facility] [facility] Work Phone: Start: 10-26-2021 AUDIT Cicso Moore Strichadrma n Work Phone: BC-Qhwolvmlrw-Fwrsz Work Phone: Start: 10-11-2021 Current tobacco non- user cad cap copd pv dm Cisco Dozier Work Phone: RM-Lcgshwunuh-Mthmnp 140 [place] Work Phone: Start: 09-14-2021 Chart Update Cisco Moore Strichardma n Work Phone: IC-Cpnkjeadti-Eliax Work Phone: Start: 09-11-2021 Office outpatient vi sit 25 minutes Cisco Dozier Work Phone: XC-Jfpyarbaxs-Tlygsv 140 [place] Work Phone: Start: 06-23-2021 NPV, Provider: Cara Dorantes, Status: Pen, Time: 2:30 PM Cisco Dozier Work Phone: [facility] [facility] Work Phone: Start: 06-21-2021 Office outpatient vi sit 15 minutes Cisco Dozier Work Phone: MG-Pulm Sleep-[place] 200 Work Phone: Start: 06-21-2021 Patient encounter procedure Cisco Dozier Work Phone: [facility] Work Phone: Start: 06-07-2021 AUDIT Cisco Reesma n Work Phone: BA-Dojsjfzh-Bfpuayr Benítez Work Phone: Start: 06-03-2021 End: 06-08-2021 Evaluation and management of inpatient Yvan Walker [facility] Lksd 60 Rm [id number] Start: 05-17-2021 AUDIT Cisco Moore St[place] n Work Phone: [facility] Work Phone: Start: 05-02-2021 Office outpatient vi sit 25 minutes Cisco Dozier Work Phone: [facility] Work Phone: Start: 05-02-2021 Patient encounter procedure Cisco Dozier Work Phone: GA-Emtxwyjbsyujwq-Yqr tlake Work Phone: Start: 04-19-2021 AUDIT Cisco Reesma n Work Phone: JV-Hqopmtxilphtqj-Zwj n MOB02 [place] Work Phone: Start: 04-06-2021 AUDIT Cisco Reesma n Work Phone: PR-Vinsdqdfvytkst-Abu dman Voice Work Phone: Start: 04-05-2021 Patient encounter procedure Cisco Teresa Dozier Work Phone: UD-Eutvbnqki-Fpfdvvs 4200 Work Phone: Start: 04-05-2021 VIRFUVPARTHA, Provider : Kailyn Michel, Status: Pen, Time: 1:00 PM Cisco Dozier Work Phone: RI-Onsqfluedc-Cjjng 204 [place] Work Phone: Start: 04-03-2021 Office outpatient vi sit 25 minutes Cisco Dzoier Work Phone: YP-Kkirishbwn-Hwzid 204 [place] Work Phone: Start: 03-22-2021 NPVPRE, Provider: Macario Bond, Status: Pen, Time: 2:00 PM Cisco Dozier Work Phone: YO-Oqkrewzejgsyzr-Muv dman Voice Work Phone: Start: 03-22-2021 Office outpatient ne w 45 minutes Cisco Dozier Work Phone: [facility] Work Phone: Start: 03-22-2021 Patient encounter procedure Cisco Dozier Work Phone: [facility] Work Phone: Start: 03-08-2021 Chart Update Cisco Reesma n Work Phone: LE-Ajvquornbz-Yehkq 204 [place] Work Phone: Start: 03-07-2021 Office consultation new/estab patient 60 min Cisco Dozier Work Phone: TW-Umjrejmdbxzjqf-Sjv dman Voice Work Phone: Start: 03-01-2021 FUV, Provider: Cinthia Appiah II, Status: Pen, Time: 3:00 PM Cisco Dozier Work Phone: QD-Abdnvdgyaa-Tefuk 204 [place] Work Phone: Start: 03-01-2021 Office outpatient ne w 45 minutes Cisoc Dozier Work Phone: PI-Cgmmjoi-Xelcjms Work Phone: Start: 02-27-2021 Office consultation new/estab patient 80 min Cisco Dozier Work Phone: HX-Ptwstefswl-Wsdba 204 [place] Work Phone: Start: 02-24-2021 Chart Update Cisco Rose n Work Phone: NS-Ralbrbin-Memfssep 1500 Work Phone: Start: 01-25-2021 Office outpatient ne w 45 minutes Cisco Dozier Work Phone: XE-Dxyzdfv-Iljhvror HC 232 [place] Work Phone: Start: 12-07-2020 Patient encounter procedure Cisco Dozier Work Phone: TE-Letcjfqy-Kcxweyoa 1500 Work Phone: Procedures Date Procedure Procedure Detail Performing Clinician Start: 01-24-2022 Follow-up visit Start: 10-11-2021 Follow-up visit Start: 06-05-2021 Echocardiography Cisco Dozier Work Phone: Start: 06-04-2021 End: 06-04-2021 EKG impression Gene Lemus Arthroscopy of knee Cisco serrano Work Phone: Cardiac catheterization Cisco Dozier Work Phone: Plan of Treatment Date Care Activity Detail Author Start: 03-26-2023 FUV, Provider: Nevin Rogers, Status: Pen, Time: 3:30 PM FUV, Provider: Nevin Rogers, Status: Pen, Time: 3:30 PM NI-Jgdrorgjhn-Tbkazx 140 [place] Work Phone: Start: 09-25-2022 FUV, Provider: Nevin Rogers, Status: Pen, Time: 3:45 PM FUV, Provider: Nevin Rogers, Status: Pen, Time: 3:45 PM CZ-Ilfptwovpb-Pozbqa 140 [place] Work Phone: Start: 04-30-2022 FUVPRE, Provider: Leta Lu, Status: Pen, Time: 1:00 PM FUVPRE, Provider: Leta Lu, Status: Pen, Time: 1:00 PM [facility] Work Phone: Start: 03-28-2022 FUV, Provider: Cinthia Appiah II, Status: Pen, Time: 1:15 PM FUV, Provider: Cinthia Appiah II, Status: Pen, Time: 1:15 PM NN-Embhkwm-Dsgvopt Work Phone: Start: 03-27-2022 FUV, Provider: Nevin Rogers, Status: Pen, Time: 3:45 PM FUV, Provider: Nevin Rogers, Status: Pen, Time: 3:45 PM [facility] Work Phone: Start: 02-07-2022 FUVPRE, Provider: Ernestina Hope, Status: Pen, Time: 1:30 PM FUVPRE, Provider: Ernestina Hope, Status: Pen, Time: 1:30 PM [facility] Work Phone: Start: 01-24-2022 FUV, Provider: Nevin Rogers, Status: Pen, Time: 3:45 PM FUV, Provider: Nevin Rogers, Status: Pen, Time: 3:45 PM FG-Eiiufvxwcs-Mxivdo 140 [place] Work Phone: Start: 01-08-2022 FUVPRE, Provider: Leta Lu, Status: Pen, Time: 1:30 PM FUVPRE, Provider: Leta Lu, Status: Pen, Time: 1:30 PM [facility] Work Phone: Start: 01-08-2022 METHCHOL, Provider: [facility] FLR PFT RM1,PULM, Status: Pen, Time: 11:00 AM METHCHOL, Provider: [facility] RM1,PULM, Status: Pen, Time: 11:00 AM [facility] Work Phone: Start: 01-08-2022 SPIROMETRY, Provider: [facility] FLR PFT RM1,PULM, Status: Pen, Time: 10:30 AM SPIROMETRY, Provider: [facility] FLR PFT RM1,PULM, Status: Pen, Time: 10:30 AM [facility] Work Phone: Start: 12-08-2021 ADLTPSG, Provider: [facility] RM 2,[id number], Status: Pen, Time: 8:00 PM ADLTPSG, Provider: [facility] RM 2,[id number], Status: Pen, Time: 8:00 PM WD-Tvnclpvra-Eavsi 204 Work Phone: Start: 11-27-2021 FUVPRE, Provider: Leta Lu, Status: Pen, Time: 1:30 PM FUVPRE, Provider: Leta Lu, Status: Pen, Time: 1:30 PM [facility] Work Phone: Start: 11-14-2021 NPV, Provider: Nevin Rogers, Status: Pen, Time: 3:00 PM NPV, Provider: Nevin Rogers, Status: Pen, Time: 3:00 PM AB-Nhhgibveuc-Ghcmpw 140 [place] Work Phone: Start: 11-01-2021 Patient encounter procedure [facility] Start: 10-11-2021 FUV, Provider: Cara Dorantes, Status: Pen, Time: 1:30 PM FUV, Provider: Cara Dorantes, Status: Pen, Time: 1:30 PM JS-Oicthlgmpc-Ltmiko 140 [place] Work Phone: Start: 10-04-2021 Patient encounter procedure [facility] Start: 09-22-2021 FUV, Provider: Cara Dorantes, Status: Pen, Time: 11:00 AM FUV, Provider: Cara Dorantes, Status: Pen, Time: 11:00 AM [facility] Work Phone: Start: 09-06-2021 Patient encounter procedure [facility] Start: 08-09-[facility]21 [facility]: [facility] Start: 06-26-2021 FUV, Provider: Princess Mireille, Status: Pen, Time: 2:30 PM FUV, Provider: Princess Mireille, Status: Pen, Time: 2:30 PM WY-Jfsborgmmy-Txhwe 204 DO Work Phone: Start: 06-26-2021 Patient encounter procedure [facility] Start: 06-23-2021 NPV, Provider: Cara Dorantes, Status: Pen, Time: 2:30 PM NPV, Provider: Cara Dorantes, Status: Pen, Time: 2:30 PM OD-Ihuqrfrh-Brafhtd Benítez Work Phone: Start: 06-23-2021 Patient encounter procedure [facility] Start: 06-21-2021 FUVPRE, Provider: Macario Bond, Status: Pen, Time: 1:30 PM FUVPRE, Provider: Macario Bond, Status: Pen, Time: 1:30 PM [facility] Work Phone: Start: 06-21-2021 Patient encounter procedure [facility] Start: 06-07-2021 Coronary artery disease Coronary artery disease Date: 07-Jun-2021 [facility] Start: 06-07-2021 End: 06-08-2022 Polyethylene Glycol 17 gram Oral Powder Daily PRN ; Powder for Reconstitution (MIRALAX)DOSE = 17 gram(s) Oral 2 Times a Day Start: 07-Jun-2021 End: 07-Jun-2022 Ordered: 07-Jun-2021 Leandra Pollack Intent [facility] Start: 06-05-2021 End: 06-06-2022 Albuterol 90 micrograms/ Inhalation MDI 2 inhalation Every 6 Hours PRN ; (PROVENTIL, VENTOLIN)DOSE = 2 inhalation Every 4 Hours via MDI, PRN Shortness of BreathNotes from Pharmacy: [facility] Start: 05-Jun-2021 End: 05-Jun-2022 Ordered: 05-Jun-2021 Gene Lemus Intent [facility] Start: 06-04-2021 End: 06-04-2022 [facility] Start: 05-02-2021 FUV, Provider: Sudheer Mcfarlane, Status: Pen, Time: 9:45 AM FUV, Provider: Sudheer Mcfarlane, Status: Pen, Time: 9:45 AM [facility] Work Phone: Start: 05-02-2021 FUV, Provider: Sudheer Mcfarlane, Status: Pen, Time: 9:40 AM FUV, Provider: Sudheer Mcfarlane, Status: Pen, Time: 9:40 AM CM-Zkftwqkqhdldag-Sunn man Voice Work Phone: Start: 04-05-2021 EDEL, Provider: Kailyn Michel, Status: Pen, Time: 1:00 PM EDEL, Provider: Kailyn Michel, Status: Pen, Time: 1:00 PM CN-Usbeaaftwgykch-Gmpo man Voice Work Phone: Start: 04-03-2021 FUV, Provider: Princess Mireille, Status: Pen, Time: 2:30 PM FUV, Provider: Princess Mireille, Status: Pen, Time: 2:30 PM EG-Eptrvgxaqh-Nckoe 204 DO Work Phone: Start: 03-29-2021 CYSTOSCOPY, Provider: [facility] PROCEDURE RM,[id number], Status: Pen, Time: 2:45 PM CYSTOSCOPY, Provider: [facility] PROCEDURE RM,[id number], Status: Pen, Time: 2:45 PM MJ-Qeeaqan-Wbtqanp Work Phone: Start: 03-22-2021 NPVPRE, Provider: Macario Bond, Status: Pen, Time: 2:00 PM NPVPRE, Provider: Macario Bond, Status: Pen, Time: 2:00 PM [facility] Work Phone: Start: 03-22-2021 NPV, Provider: Quita Zarate, Status: Pen, Time: 9:00 AM NPV, Provider: Quita Zarate, Status: Pen, Time: 9:00 AM MC-Slvhkphj-Bfraezhz 1500 Work Phone: Start: 03-07-2021 NPV, Provider: Sudheer Mcfarlane, Status: Pen, Time: 11:00 AM NPV, Provider: Sudheer Mcfarlane, Status: Pen, Time: 11:00 AM NG-Shfzqdqnpv-Lcnje 204 DO Work Phone: Start: 03-01-2021 FUV, Provider: Cinthia Appiah II, Status: Pen, Time: 3:00 PM FUV, Provider: Cinthia Appiah II, Status: Pen, Time: 3:00 PM IY-Pxmtfcqx-Tjfryjpb 1500 Work Phone: Start: 02-27-2021 NPV, Provider: Princess Mireille, Status: Pen, Time: 2:00 PM NPV, Provider: Princess Mireille, Status: Pen, Time: 2:00 PM BB-Exiehjcp-Zhntmslz 1500 Work Phone: Start: 02-22-2021 FUV, Provider: Cinthia Appiah II, Status: Pen, Time: 3:45 PM FUV, Provider: Cinthia Appiah II, Status: Pen, Time: 3:45 PM NQ-Hncumsh-Knmbnjwn HC 232 DO Work Phone: Immunizations Immunization Date Immunization Notes Care Provider Antonio joie 12-22-2020 Moderna COVID-19 Vac cine 100 MCG/0.5ML Intramuscular Suspension Cisco A Tasia Work Phone: [facility] Work Phone: 04-07-2020 Moderna COVID-19 Vac cine 100 MCG/0.5ML Intramuscular Suspension Cisco A Tasia Work Phone: [facility] Work Phone: 03-10-2020 Moderna COVID-19 Vac cine 100 MCG/0.5ML Intramuscular Suspension Cisco A [facility] Work Phone: [facility] Work Phone: 12-21-2018 Influenza, injectabl e, Madin Alma Canine Kidney, quadrivalent with preservative Cisco Reesman Work Phone: [facility] Work Phone: 12-31-2012 influenza, seasonal, injectable Cisco Ramirezutzman Work Phone: -[facility]ulmonary [facility] Work Phone: Payers Date Payer Category Payer Unknown [id number] 1960 Unknown [id number] 1960 Unknown [id number]. [id number] 1960 Unknown [id number] 1960 Unknown [id number] Unknown Social History Date Type Detail Facility Current every day smoker Current every day smoker UO-Zgzsqdh-Uiltzwyy [facility] 232 DO Work Phone: Tobacco smoking consumption unknown [facility] NEGATED: Highlighted row Denies Current every day smoker Denies Current every day smoker [facility] Work Phone: Functional Status Date Assessment Result Facility Functional observable [facility] Mental Status Date Assessment Result Facility 06-05-2021 Cognitive functions 0227:[id number] [facility] Clinical Notes 02-27-2019 to 09-25-2022 [...] rate of 67 his weight is 220 pounds.03/27/2022atient is here for follow-up. He had a bout of flu and COVID in January 2022. Has been recovering. He still has some shortness of breath. She complains of increased lower extremity edema and abdominal fullness. No orthopnea or PND he has noticed. His vital signs initial blood pressure 103/67 heart rate of 64 satting 96% on room air. OA-Slhheekrqi-Cehwyp 140 [place] Work Phone: 03-27-2022 History of [...] room air. His weight is 223 pounds. OE-Tjvvjkgdab-Wledkr 140 [place] Work Phone: 03-12-2022 History of [...] not an issue. He is taking Isosorbide. ZD-Dfzwimv-Vttkrwi Work Phone: 01-24-2022 History of Present illness Narrative 61 year old male with PMH of asthma (positive methacholine), laryngeal spasm, former tobacco use, NSTEMI s/p RCA stent (2021) who presents to pulmonary clinic after a recent hospitalization for pneumonia.Patient presented to the [facility] on 01/24 and was told that [...] pack per day, social etoh, no illicits. 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 His weight is 223 pounds. CV-Djtmqrladu-Bmohxj 140 [place] Work Phone: 11-14-2021 History of Present illness [...] room air. His weight is 223 pounds. [facility] Work Phone: 10-11-2021 History of Present [...] started on atorvastatin 80mg following his cath). MB-Uboukchlnk-Dcktyg 140 [place] Work Phone: 09-12-2021 History of Present illness Narrative 09/12/2021: [...] started on atorvastatin 80mg following his cath). TP-Sjnhwunmrd-Agrmyc 140 [place] Work Phone: 04-05-2021 Reason for visit Narrative An interactive audio and video telecommunication system which permits real time communications between the patient (at the originating site) and provider (at the distant site) was utilized to provide this telehealth service.Verbal consent was requested and obtained from FREDDIE DUMONT on this date, 04/05/2021 01:00 PM , for a telehealth visit.Virtual Voice Mckenzie DALEY for referral: SOB, laryngospasmRehab Dx: J38.3, R49.0, J38.5 VB-Worbwrnqd-Soopxyt 4200 Work Phone: 04-03-2021 History of Present [...] He has gone to the ER in [place] a few times. He states that sometimes [...] He saw ENT (Dr. Bobby Chavez) in [place] and had a rhinoscopy and didn't recall any abnormal findings. Was referred to a rate examiner but never had an appointment scheduled. He [...] he gets hot. 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 Also has Parkinson's. KU-Iucxwgjzqy-Cofoa 204 [place] Work Phone: 03-07-2021 History of [...] last month. He has been working with [employer] on respiratory retraining.Recall: 03/07/2021 FREDDIE DUMONT is [...] smokerDenies other drug use.FHx: reviewed. Includes: Emphysema HP-Parpbgkpenwpzs-Pnhy [place] Work Phone: 03-07-2021 History of Present [...] last month. He has been working with [employer] on respiratory retraining.Recall: 03/07/2021 FREDDIE DUMONT is [...] smokerDenies other drug use.FHx: reviewed. Includes: Emphysema PL[facility] Work Phone: 02-12-2021 History of Present [...] smokerDenies other drug use.FHx: reviewed. Includes: Emphysema ME-Ufrpnojvwgtntn-Yqdp man Voice Work Phone: 01-08-2021 History of [...] Years ago.. ED is not an issue GG-Mpdbgta-Efidlaee HC 232 [place] Work Phone: 01-08-2021 History [...] Prostate CA.. ED is not an issue BO-Wvdaaeg-Hxaszlu Work Phone: 07-04-2019 History of Present illness [...] April 2021, had previously smoked a packsocial etohno [employer], outside work, for past 14 yearsmeat cutter priorpulm meds: MG-Pulm Sleep-[place] 200 Work Phone: 06-24-2019 [...] April 2021, had previously smoked a packsocial [employer], outside work, for past 14 yearsmeat cutter priorpulm meds: MG-Pulm Sleep-[place] [facility] 6 Sleep Work Phone: 06-23-2019 History of [...] hospital, everything is better. Has seen a manual writer and had endoscopy. Was being worked up [...] to quit, had previously smoked a packsocial [employer], outside work, for past 14 yearsmeat cutter priorpulm meds: MG-Pulm Sleep-[facility] 6 Sleep Work Phone: 03-24-2019 History of Present [...] hospital, everything is better. Has seen a manual writer and had endoscopy. Was being worked up [...] quit, had previously smoked a packsocial etohno illicitAxentis Software, outside work, for past 14 yearsmeat cutter priorpulm meds: MG-Pulm Sleep-[place] [employer] 6 Sleep Work Phone: 03-22-2019 History of Present [...] hospital, everything is better. Has seen a manual writer and had endoscopy. Was being worked up [...] quit, had previously smoked a packsocial etohno [employer], outside work, for past 14 yearsmeat cutter priorpulm meds: MG-Pulm Sleep-[place] [facility] 6 Sleep Work Phone: 03-08-2019 History of [...] He has gone to the ER in [place] a few times. He states that sometimes [...] He saw ENT (Dr. Bobby Chavez) in [place] and had a rhinoscopy and didn't recall any abnormal findings. Was referred to a rate examiner but never had an appointment scheduled. He [...] he gets hot. 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 Also has Parkinson's. [facility] Work Phone: 03-01-2019 History of Present [...] He has gone to the ER in [place] a few times. He states that sometimes [...] He saw ENT (Dr. Bobby Chavez) in [place] and had a rhinoscopy and didn't recall any abnormal findings. Was referred to a rate examiner but never had an appointment scheduled. He [...] he gets hot. 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 Also has Parkinson's. [facility] Work Phone: 02-27-2019 History of Present [...] He has gone to the ER in [place] a few times. He states that sometimes [...] He saw ENT (Dr. Bobby Chavez) in [place] and had a rhinoscopy and didn't recall any abnormal findings. Was referred to a rate examiner but never had an appointment scheduled. He [...] he gets hot. 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 Also has Parkinson's. IB-Tvitkirmnj-Lrllb 204 DO Work Phone: Evaluation note Skin: [...] developed, awake/alert/oriented x3, no distress and cooperative [facility] History of Present illness Narrative [...] in mid-April. May benefit from GI referral. KK-Ksmiekajv-Lghuala 4200 Work Phone: Hospital Discharge instructions Activity:activity [...] for your laryngeal spasm. Take care, [facility] Medicine Team1. DAPT with aspirin and [...] Up Appointment 1:Physician/Dept/Service: Dr. Cisco Dozier - [facility] week, Office to call patient directly to schedule appointmentLocation: [address] [place] [address] [place], [place] [address]Vveli Number: [phone]: Please arrive 10-15 minutes early, wear a mask prior to entering the building, bring discharge summary, bring photo ID, current list of medications & dosages, insurance cards and any copay that may apply. If unable to keep this appointment, please call to cancel at least 24 hrs prior to appointment.Follow Up Appointment 2:Physician/Dept/Service: Cara Dorantes [facility] - CardiologyScheduled Date/Time: 23-Jun-2021 14:30Location: [facility] [address] [place] [address] [address], [place] [address]Kgnjv Number: [phone]: Please wear a mask when entering the [...] in the next few days. Please call [phone] ( ) if you do not hear back by then to inquire about appointment. Please arrive 15 minutes early and bring photo ID, insurance card, and medication list. If unable to attend appointment, please call to cancel within 24 hours. [facility] Chief Complaint Patient here for [...] DATE CREATED AUTHOR AUTHOR'S ORGANIZ ATION 12/13/2021 [facility] DATE CREATED AUTHOR AUTHOR'S ORGANIZ ATION 09/26/2022 [employer] DATE CREATED AUTHOR AUTHOR'S ORGANIZ ATION 03/27/2023 [facility] FOR RECORDS PERTAINING TO PATIENTS WHO ARE [...] BE BASED ON THE PRIMARY CLINICAL RECORDS. [facility] [employer] [facility]. provides no warranty or guarantee of the accuracy or completeness of information in this document.
[2023-03-28 13:27] LABS: Cholesterol 99 mg/dL (200); High Density Lipoprotein 50 mg/dL; Triglycerides 90 mg/dL; Very Low Density Lipoprotein 18 mg/dL (5-40)
== END | disposition home or self-care (01) ==
PROVIDERS: PCP Family Medicine
DX: I65.21 Occlusion and stenosis of right carotid artery (principal); I10 Essential (primary) hypertension; I25.10 Atherosclerotic heart disease of native coronary artery without angina pectoris; Z95.5 Presence of coronary angioplasty implant and graft
CPT/HCPCS: 36415; 80061

== ENCOUNTER 2023-05-03 09:45 | Emergency (ER) | payer MEDICARE, BC, SELFPAY ==
[2023-05-03 09:45] VITALS: BP 156/115; PULSE 79; RESP 18; TEMP 36.3; O2SAT 94; BMI 31.8
[2023-05-03 10:19] VITALS: O2SAT 96
[2023-05-03 10:21] VITALS: BP 156/97; PULSE 84; RESP 15; O2SAT 95
[2023-05-03 10:47] VITALS: BP 181/107; PULSE 79; RESP 16; TEMP 36.3; O2SAT 97
--- NOTE | 2023-05-03 10:50 | RAD_ITS ---
STUDY: X-RAY CHEST REASON FOR EXAM: Male, 62 years old. Cough TECHNIQUE: Single AP portable view of the chest. COMPARISON: Comparison is made with prior study dated March 16, 2023. FINDINGS: EKG electrodes are seen. Stable elevation of the left hemidiaphragm. Persistent mild increased markings at the lung bases suggestive of a atelectasis. There has been improvement as compared to prior study. There is no demonstrated pleural abnormality. Normal size heart. Normal mediastinum and marv. Normal visualized pulmonary arteries. There is atherosclerotic tortuosity of the aortic arch and descending thoracic aorta. There are diffuse degenerative changes of the visualized thoracic spine. Normal visualized ribs, clavicles, and shoulders. There is no demonstrated abnormality of the visualized soft tissue structures of the upper abdomen. RAD/Chest 1 View (Portable) IMPRESSION: Residual mild increased markings at the lung bases although there has been improvement. This most likely represents bibasilar linear atelectasis. Electronically Signed: Akshat Pinto MD at 11:46 EDT ,
--- NOTE | 2023-05-03 10:50 | ED.VIS.DYS ---
HPI History of Present Illness Chief Complaint: Shortness of Breath Narrative Narrative: 62-year-old male presenting with shortness of breath. Has a history of asthma but also history of tobacco use with may be have some overlap of COPD. Patient states that he woke up feeling a little bit off today. He had chills and bodyaches. No fever. Patient states that he walked out to his barn and felt a little short of breath. He feels like he is wheezing. He called his PCP and while talking on the phone checked his pulse ox which read 87?88. Patient sent to the emergency room. Patient denies chest pain. Denies lightheadedness or dizziness. Patient does state that he feels short of breath when he exerts himself but also feels as if he is wheezing. Patient relates he feels like he is coming down with something viral. [facility] Medical History Abnormal CT of the chest Acute deep vein thrombosis of lower extremity Alcohol use Arthritis Asthma Bilateral hearing loss CAD (coronary artery disease) Chronic diastolic (congestive) heart failure DVT (deep venous thrombosis) Gastric reflux High cholesterol History of nuclear stress test Hypothyroidism MARYJO (obstructive sleep apnea) Smoker Wears glasses Home Medications omeprazole 40 mg capsule,delayed release 40 mg PO BID gerd #120 caps 11/18/20 [Rx Last Taken 11/23/20] albuterol sulfate 90 mcg/actuation aerosol inhaler 2 puff inhalation Q6H PRN shortness of breath or wheezing #6.7 grams 11/23/20 [Rx Last Taken Unknown] levothyroxine 150 mcg tablet (Synthroid) 150 mcg PO DAILY thyroid 01/13/21 [History Last Taken Unknown] aspirin 81 mg chewable tablet (Luis Alberto Chewable Low Dose Aspirin) 81 mg PO DAILY heart health 01/24/22 [History Last Taken Unknown] clopidogrel 75 mg tablet 75 mg PO DAILY anit platelet 01/24/22 [History Last Taken Unknown] ezetimibe 10 mg tablet 10 mg PO DAILY as prescribed 01/24/22 [History Last Taken Unknown] metoprolol succinate 25 mg tablet,extended release 24 hr 12.5 mg PO DAILY bp 01/24/22 [History Last Taken Unknown] rosuvastatin 5 mg tablet 5 mg PO DAILY cholesterol 01/24/22 [History Last Taken Unknown] tamsulosin 0.4 mg capsule 0.4 mg PO BID prostate 05/17/22 [History Last Taken Unknown] furosemide 40 mg tablet (Lasix) 40 mg PO DAILY diuretic 06/04/22 [History Last Taken Unknown] isosorbide mononitrate 60 mg tablet,extended release 24 hr 60 mg PO DAILY heart 06/04/22 [History Last Taken Unknown] spironolactone 25 mg tablet 25 mg PO DAILY diuretic 06/04/22 [History Last Taken Unknown] Bilateral knee-high compression stockings (10-20) #2 ea 07/02/22 [Rx Last Taken Unknown] Handicap placard #1 ea 10/01/22 [Rx Last Taken Unknown] atropine 1 % eye drops See Rx Instructions buccal DAILY eyes #10 mL 01/31/23 [Rx Last Taken Unknown] carbidopa 25 mg-levodopa 100 mg tablet 2 tab PO TID parkinsons #540 tabs 01/31/23 [Rx Last Taken Unknown] budesonide-formoterol HFA 160 mcg-4.5 mcg/actuation aerosol inhaler (Symbicort) 2 inh inhalation BID as directed #3 ea 03/28/23 [Rx Last Taken Unknown] prednisone 50 mg tablet 50 mg PO DAILY #5 tabs 05/03/23 [Rx Last Taken Unknown] Allergy/AdvReac Type Severity Reaction Status Date / Time vibegron [From Gemtesa] Allergy Severe Rash Verified 05/03/23 09:47 Family History Father COPD (chronic obstructive pulmonary disease) Emphysema lung Myocardial infarction Mother Parkinsons disease Surgical History H/O cardiac catheterization H/O knee surgery H/O thyroidectomy Hx of arthroscopy of knee Social History Smoking Status: Former smoker Tobacco: How many years used: 45 second hand exposure: Yes alcohol intake: current alcohol intake frequency: holidays/special occasions only substance use type: does not use caffeine: Yes (daily) what type of physical activity do you participate in: walking seatbelt use: sometimes ROS ROS ED Constitutional Constitutional ED: Denies chills, fever(s) or sweats Eyes Eyes: Denies blurry vision or change in vision ENT ENT ED: Denies ear pain or sore throat Cardiovascular Cardiovascular: Denies chest pain, palpitations or racing heartbeat Respiratory/Chest Respiratory/Chest: Reports dyspnea; Denies cough or sputum Gastrointestinal Gastrointestinal: Denies abdominal pain, constipation, diarrhea, nausea or vomiting Genitourinary Genitourinary ED: Denies dysuria, hematuria or urinary frequency Musculoskeletal Musculoskeletal: Reports myalgias; Denies arthralgias or neck pain Integumentary Denies abscess, Abrasions or rash Neurologic Neurologic: Denies headache(s), paresthesias or weakness Psychiatric Psychiatric: Denies anxiety, depression, suicidal ideation or suicidal thoughts Endocrine Endocrinology: Denies polydipsia or polyuria EXAM Physical Exam Const Vital Signs: 05/03/23 09:45 05/03/23 10:19 05/03/23 10:21 Temperature 97.3 F L Temperature Source Temporal Pulse Rate 79 84 Respiratory Rate 18 15 Respiratory Effort Short of Breath Respiratory Depth Normal Respiratory Pattern Normal Blood Pressure 156/115 H 156/97 H Blood Pressure Mean 128 116 Pulse Ox 94 95 Oxygen Delivery Method Room Air Room Air Room Air 05/03/23 10:47 05/03/23 11:14 05/03/23 11:54 Temperature 97.4 F L 98.2 F Temperature Source Temporal Pulse Rate 79 83 71 Respiratory Rate 16 16 15 Respiratory Effort Respiratory Depth Respiratory Pattern Normal Blood Pressure 181/107 H 175/77 H Blood Pressure Mean 131 109 Pulse Ox 97 100 Oxygen Delivery Method Room Air Positive well nourished General Appearance ED: NAD; Negative for pallor HEENT Reports moist mucous membranes atraumatic Eyes PERRL and EOMs intact bilaterally Neck no lymphadenopathy and supple Resp normal respiratory effort Auscultation: wheezes expiratory wheezes and throughout Cardio regular rate and regular rhythm Extremity normal to inspection Neuro oriented x3 and CN's II-XII intact bilaterally Sensorium / Orientation: alert Motor Exam: strength 5/5 throughout Psych mental status grossly normal Skin General Skin Exam: Negative for jaundice or pallor MDM MDM MDM Narrative Medical decision making narrative: Patient presenting with shortness of breath. He feels that he is wheezing. On examination he is wheezing and he is or breathing treatments and prednisone. Patient's home pulse oximeter was used to assess his oxygen level and although the reading here on the emergency room pulse ox is 97% his is reading 88%. After leaving is on for about 45 seconds to a minute and it read 92%. I do believe this is an inaccurate pulse oximeter. We discussed getting a new one with waveforms. I discussed waveforms with them at length as well as pulse ox readings. Will obtain a chest x-ray. Did offer viral testing however the patient declines. Chest x-ray my interpretation shows no acute process. Radiology in agreement and states it looks improved. Feeling better after breathing treatment and steroids. I will discharge him home with a burst of prednisone he is to continue his breathing treatments as needed. Return precautions were discussed. Impression: 1. Asthma exacerbation 2. Viral syndrome Lab Data Attestation: I reviewed the patient's lab results. Radiography Diagnostic Testing: Clinical Impression(s) from Imaging Studies Chest X-Ray 05/03/23 10:50 IMPRESSION: Residual mild increased markings at the lung bases although there has been improvement. This most likely represents bibasilar linear atelectasis. Electronically Signed: Akshat Pinto MD at 11:46 EDT , Discharge Plan Triage Chief Complaint: Shortness of Breath ED Provider: Jayson Miramontes Dx/Rx/DC Orders Instructions: ED Asthma, Acute (Adult) Prescriptions: New prednisone 50 mg tablet 50 mg PO DAILY Qty: 5 0RF No Action tamsulosin 0.4 mg capsule 0.4 mg PO BID furosemide [Lasix] 40 mg tablet 40 mg PO DAILY spironolactone 25 mg tablet 25 mg PO DAILY (DME) Bilateral knee-high compression stockings (10-20) See Rx Instructions .Route .MEDSUPPLY Qty: 2 0RF Rx Instructions: As directed carbidopa-levodopa 25-100 mg tablet 2 tab PO TID Qty: 540 2RF atropine 1 % drops See Rx Instructions buccal DAILY Qty: 10 2RF Rx Instructions: Take 1 to 2 drops buccally daily levothyroxine [Synthroid] 150 mcg tablet 150 mcg PO DAILY clopidogrel 75 mg tablet 75 mg PO DAILY aspirin [Luis Alberto Chewable Aspirin] 81 mg tablet,chewable 81 mg PO DAILY Patient Comments: 1 tablet by mouth once a day metoprolol succinate 25 mg tablet extended release 24 hr 12.5 mg PO DAILY ezetimibe 10 mg tablet 10 mg PO DAILY rosuvastatin 5 mg tablet 5 mg PO DAILY isosorbide mononitrate 60 mg tablet extended release 24 hr 60 mg PO DAILY Rx Instructions: Take one and 1/2 tab in AM omeprazole 40 mg capsule,delayed release(DR/EC) 40 mg PO BID Qty: 120 0RF Rx Instructions: Take one cap by mouth two times a day for eight weeks. Then will taper. albuterol sulfate 90 mcg/actuation HFA aerosol inhaler 2 puff inhalation Q6H PRN (Reason: shortness of breath or wheezing) Qty: 6.7 0RF (DME) Handicap placard See Rx Instructions .Route .MEDSUPPLY Qty: 1 0RF Rx Instructions: Expiration: 10/01/2025 budesonide-formoterol [Symbicort] 160-4.5 mcg/actuation HFA aerosol inhaler 2 inh inhalation BID Qty: 3 3RF Rx Instructions: administer with spacer, rinse mouth after each use Primary Care Provider: Cisco Dozier Referrals: Cisco Dozier DO [Primary Care Provider] - Disposition Disposition: Home, Self Care Discharge Date/Time: 05/03/23 11:58
[2023-05-03] MEDS: predniSONE 20 MG Tablet 60 MG PO (10:58)
--- NOTE | 2023-05-03 11:01 | ED.RN ---
Patients spouse questioning how long they will be here. This Rn informed her most ER visits last a couple of hours and that the ER is full today.
[2023-05-03 11:14] VITALS: PULSE 83; RESP 16
[2023-05-03] MEDS: Albuterol 2.5 MG/3 ML VIAL.NEB. INHALATION (11:14)
[2023-05-03] MEDS: Ipratropium/Albuterol Sulfate 3 ML AMPUL.NEB INHALATION (11:14)
[2023-05-03 11:54] VITALS: BP 175/77; PULSE 71; RESP 15; TEMP 36.8; O2SAT 100
== END 2023-05-03 11:58 | disposition home or self-care (01) ==
PROVIDERS: Emergency Provider Student in an Organized Health Care Education/Training Program; PCP Family Medicine; Visit Provider Student in an Organized Health Care Education/Training Program
DX: J45.901 Unspecified asthma with (acute) exacerbation (principal); I50.32 Chronic diastolic (congestive) heart failure; Z87.891 Personal history of nicotine dependence; R68.83 Chills (without fever); B34.9 Viral infection, unspecified; G47.33 Obstructive sleep apnea (adult) (pediatric); I25.10 Atherosclerotic heart disease of native coronary artery without angina pectoris; K21.9 Gastro-esophageal reflux disease without esophagitis; E03.9 Hypothyroidism, unspecified; E78.00 Pure hypercholesterolemia, unspecified; Z86.718 Personal history of other venous thrombosis and embolism
CPT/HCPCS: 71045; 94640; 99282

== ENCOUNTER → 2023-05-06 | Outpatient (CLI) | payer MEDICARE, BC, SELFPAY ==
[2023-05-06 11:47] LABS: PSA,Total- Diagnostic 0.72 ng/mL (0.0-4.0)
== END | disposition home or self-care (01) ==
LOC: LAB 10:44
PROVIDERS: PCP Family Medicine; Visit Provider Urology
DX: R35.1 Nocturia (principal)
CPT/HCPCS: 36415; 84153

== ENCOUNTER → 2023-05-16 | Outpatient (CLI) | payer MEDICARE, BC, SELFPAY ==
--- NOTE | 2023-05-16 13:40 | RAD_ITS ---
STUDY: X-RAY CHEST REASON FOR EXAM: Male, 63 years old. Shortness of breath. TECHNIQUE: Frontal and lateral views of the chest. COMPARISON: 05/03/2023 FINDINGS: Stable mild hyperinflation. There is no demonstrated pleural abnormality. Cardiomegaly unchanged. Normal mediastinum and marv. Normal visualized pulmonary arteries. Aortic tortuosity with calcification unchanged. Diffuse thoracic spondylosis unchanged. Normal visualized ribs, clavicles, and shoulders. No abnormality of the visualized soft tissue structures of the upper abdomen. RAD/Chest PA and Lateral IMPRESSION: Stable chest with cardiomegaly and mild hyperinflation. Electronically Signed: Evans Ozuna MD at 16:00 EDT ,
[2023-05-16 14:37] LABS: D-Dimer Quantitative (DVT/PE) 0.41 FEU/ug/m (0.27-0.49)
[2023-05-16 14:47] LABS: Anion Gap 4 (5-15); BUN 10 mg/dL (7-18); BUN/Creat Ratio 9.9 RATIO (10-20); Chloride 102 mmol/L (98-107); Creatinine, Serum 1.01 mg/dL (0.70-1.30); EST Glomerular Filtration Rate 79 mL/min (>60); Est Glom Filt Rate - Afr Amer 95 mL/min (>60); Glucose 82 mg/dL (74-106); Potassium 3.3 mmol/L (3.5-5.1); Sodium Level 137 mmol/L (136-145)
[2023-05-16 14:49] LABS: BNP,B-Type NATRIURETIC PEPTIDE 90.8 pg/mL (0-100)
== END | disposition home or self-care (01) ==
PROVIDERS: PCP Family Medicine; Referring Provider Nurse Practitioner Acute Care; Visit Provider Nurse Practitioner Acute Care
DX: R06.02 Shortness of breath (principal)
CPT/HCPCS: 36415; 71046; 80048; 83880; 85379

== ENCOUNTER → 2023-05-17 | Outpatient (CLI) | payer MEDICARE, BC, SELFPAY | END | disposition home or self-care (01) | LOC: LABSPEC 11:01 | PROVIDERS: PCP Family Medicine; Referring Provider Nurse Practitioner Acute Care; Visit Provider Nurse Practitioner Acute Care | DX: R05.9 Cough, unspecified (principal) | CPT/HCPCS: 87070; 87205 ==

== ENCOUNTER → 2023-06-18 | Outpatient (CLI) | payer MEDICARE, BC, SELFPAY ==
[2023-06-18 13:17] LABS: AST(SGOT) 15 U/L (15-37); Alanine Aminotransfer ALT/SGPT < 6 U/L (16-61); Alkaline Phosphatase 84 U/L (45-117); Anion Gap 4 (5-15); BUN 14 mg/dL (7-18); BUN/Creat Ratio 13.5 RATIO (10-20); Calcium,Total 9.6 mg/dL (8.5-10.1); Chloride 103 mmol/L (98-107); Creatinine, Serum 1.04 mg/dL (0.70-1.30); EST Glomerular Filtration Rate 76 mL/min (>60); Est Glom Filt Rate - Afr Amer 92 mL/min (>60); Globulin 3.9 g/dL (2.2-4.2); Glucose 96 mg/dL (74-106); Potassium 3.3 mmol/L (3.5-5.1); Protein, Total 7.9 g/dL (6.4-8.2); Sodium Level 139 mmol/L (136-145)
== END | disposition home or self-care (01) ==
LOC: LAB 11:17
PROVIDERS: PCP Family Medicine; Referring Provider Internal Medicine Cardiovascular Disease; Visit Provider Internal Medicine Cardiovascular Disease
DX: I10 Essential (primary) hypertension (principal); R06.02 Shortness of breath
CPT/HCPCS: 36415; 80053

== ENCOUNTER → 2023-06-25 | Outpatient (CLI) | payer MEDICARE, BC, SELFPAY ==
[2023-06-25 09:57] LABS: Anion Gap 4 (5-15); BUN 17 mg/dL (7-18); BUN/Creat Ratio 13.1 RATIO (10-20); Chloride 105 mmol/L (98-107); EST Glomerular Filtration Rate 59 mL/min (>60); Est Glom Filt Rate - Afr Amer 71 mL/min (>60); Glucose 118 mg/dL (74-106); Potassium 3.9 mmol/L (3.5-5.1); Sodium Level 138 mmol/L (136-145)
== END | disposition home or self-care (01) ==
PROVIDERS: PCP Family Medicine; Referring Provider Nurse Practitioner Gerontology; Visit Provider Nurse Practitioner Gerontology
DX: E87.6 Hypokalemia (principal)
CPT/HCPCS: 36415; 80048

== ENCOUNTER → 2023-07-01 | Outpatient (CLI) | payer MEDICARE, BC, SELFPAY ==
--- NOTE | 2023-07-01 13:36 | CT_ITS ---
EXAM: CT CHEST WITHOUT INTRAVENOUS CONTRAST CLINICAL INDICATION: Shortness of breath and cough. Patient was unable to lay prone due to SOB and cough. TECHNIQUE: Helically acquired images were obtained of the chest without intravenous contrast. This CT exam was performed using one or more of the following dose reduction techniques: automated exposure control, adjustment of the mA and/or kV according to patient size, and/or use of iterative reconstruction technique. RADIATION DOSE: CTDIvol = 17.32 mGy, DLP = 594.91 mGy-cm COMPARISON: CT chest without contrast 07/29/2020. CTA chest 03/16/2023. FINDINGS: LUNGS AND PLEURAL SPACES: The lungs are clear. No mass. No pleural effusion or thickening. No pneumothorax. HEART: Unremarkable. Heart size is normal. Normal cardiac size. Heavy calcified plaques along the right coronary artery and the LAD branch of the left coronary artery. Normal pericardium. MEDIASTINUM: Unremarkable. No mediastinal or hilar adenopathy. Esophagus is unremarkable. No hiatal hernia. THYROID: Unremarkable. No thyroid lesions. BONES/JOINTS: Unremarkable. No lytic or blastic lesions. No recent or remote fractures. VASCULATURE: Unremarkable. Thoracic aorta is non-dilated. CT/Chest without Contrast IMPRESSION: 1. No CT evidence of acute or chronic lung pathology. The lungs are clear. 2. Heavy calcifications along the right coronary artery more than LAD branch of the left coronary artery. These are new when compared to CT chest of 07/29/2020. 3. Interval clearing of minimal groundglass opacities in the posterior lung bases when compared to 03/16/2023. Electronically Signed: Vega Yadav MD at 9:17 EDT ,
--- NOTE | 2023-07-01 13:36 | CDU_ITS ---
Reason For Study: Stenosis Rt. Velocities/BP Lt. Velocities/BP Prox CCA 70/16.8 cm/sec. Prox CCA 62.2/16 cm/sec. Mid CCA 93.8/18.2 cm/sec. Mid CCA 80.5/26.4 cm/sec. Dist CCA 63.6/16.3 cm/sec. Dist CCA 50.9/16.8 cm/sec. Prox ICA 148.5/35.3 cm/sec. Prox ICA 35.1/8.8 cm/sec. Mid ICA 108.3/22.5 cm/sec. Mid ICA 74/30.5 cm/sec. Dist ICA 91.9/20.6 cm/sec. Dist ICA 62.6/28.6 cm/sec. Rt. ICA/CCA = 2.12. Lt. ICA/CCA = 1.19. Prox ECA 62.6/6.9 cm/sec. Prox ECA 76.1/21.2 cm/sec. Rt. Vert. 31.7/11.6 cm/sec. Lt. Vert. 38.1/11.6 cm/sec. Right Extracranial There is homogeneous, smooth atherosclerotic plaque noted in the right common carotid artery. There is heterogeneous, irregular atherosclerotic plaque noted in the right internal carotid artery. There is heterogeneous, irregular atherosclerotic plaque noted in the right external carotid artery. Antegrade flow is noted in the right vertebral artery. Left Extracranial There is intimal thickening but no significant atherosclerotic plaque noted in the left common carotid artery. There is intimal thickening but no significant atherosclerotic plaque noted in the left internal carotid artery. There is intimal thickening but no significant atherosclerotic plaque noted in the left external carotid artery. Antegrade flow is noted in the left vertebral artery. Procedure Carotid Duplex [id number]. This is a Carotid Duplex examination using B-mode, color flow and specral Doppler. The study was technically difficult. Exam performed in department. VL/Carotid Duplex Ultrasound Interpretation Summary Moderate (50-69%) stenosis right extracranial internal carotid. Mild (<50%) stenosis left extracranial internal carotid. Patent and antegrade vertebrals bilaterally. Ordering Physician: Gilbert Hoang Referring Physician: Cisco Dozier Performed By: Jessica Yuan RVT
== END | disposition home or self-care (01) ==
LOC: PSN 12:56
PROVIDERS: PCP Family Medicine; Referring Provider Internal Medicine Cardiovascular Disease; Visit Provider Internal Medicine Cardiovascular Disease
DX: R06.02 Shortness of breath (principal); J44.9 Chronic obstructive pulmonary disease, unspecified; Z95.5 Presence of coronary angioplasty implant and graft; I51.89 Other ill-defined heart diseases; R09.89 Other specified symptoms and signs involving the circulatory and respiratory systems; I77.9 Disorder of arteries and arterioles, unspecified; E78.5 Hyperlipidemia, unspecified; I65.29 Occlusion and stenosis of unspecified carotid artery; R42 Dizziness and giddiness; G47.33 Obstructive sleep apnea (adult) (pediatric)
CPT/HCPCS: 71250; 93880; 94060; 94726; 94729

== ENCOUNTER → 2023-07-02 | Outpatient (CLI) | payer MEDICARE, BC, SELFPAY | END | disposition home or self-care (01) | LOC: SL 20:27 | PROVIDERS: PCP Family Medicine; Referring Provider Nurse Practitioner Acute Care; Visit Provider Nurse Practitioner Acute Care | DX: G47.33 Obstructive sleep apnea (adult) (pediatric) (principal) | CPT/HCPCS: 95811 ==

== ENCOUNTER 2023-07-19 12:00 | Outpatient (RCR) | payer MEDICARE, BC, SELFPAY ==
--- NOTE | 2023-07-02 12:37 | HP.PTEVAL_ITS ---
Patient's Visit Information Visit Information Visit Information: FREDDIE DUMONT is a 63 year old M referred to Physical Therapy by Dr. Cisco Dozier DO with a diagnosis of cervicalgia. Date of Evaluation: 07/02/23 Physical Therapist: DIMITRI RaphaelT, OCS, CSCS Visit Plan Frequency: 2x /Week Duration: 4-6 Weeks Plan: 2x/week for 3-6 weeks for 1. MH and STM to B subocc. 2. cervical retraction biased ROM exercises, include rotation and extension P- AROM and posture, PA mobs, cervical traction manually.stretch subocc and UT. 3. cervical and postural strength to HEP IE: educate on HEP of supine lie with pillows and gradually lowering for postural slow stretch, Postural correction adn HO for both of these. Subjective Subjective: Neck pain posteriorly in middle and L. Started months ago without reason. Not a familiar pain. No arm symptoms. Worse with neck movement looking up. Sleeping is not interrupted, Retired. Spends day, mowing which does not make it worse. No regular exercises. Basic ADLs are going OK. Pain neck pain: Pain Intensity (Out of 10): 5 Pain Intensity Range: 3 and 5 Comment: worse with activity, sitting feels better Objective Objective: L rotation 40 and R 50 and ext 15 all slightly painful, flexion is OK Posture is extreme forward head and flexed down looking at floor, elevated scap. pt has PD and moves very little with a flat affect. Scap ROM is limited in retraction and depression B. UE shoulder, elbow wrist ROM wFL adn without pain. reflexes 1/3 bi and tri sensation UE WNL to gross light touch B. strength UE 4/5 without myotomal problems in UE B. No pain. Not overly tender in pericervical area but slightly subocc L>R in neck. Balance/Special Test Scores Oswestry Neck Score: 14 Goals Goal 1:: 55 B rotation and 35 ext cervical aROM to limit future problems Goal Time Frame: 4-6 Weeks Goal 2:: assume and maintain head upright posture without VC Goal Time Frame: 4-6 Weeks Goal 3:: pain in neck 1/10 at worst and 75% improved. Goal Time Frame: 4-6 Weeks Goal 4:: oswestry neck 5 or better Goal Time Frame: 4-6 Weeks Goal 5:: I apporpirat eHEp to minimize future problems Goal Time Frame: 4-6 Weeks Rehabilitation Potential Physical Therapy Diagnosis: postural related pain limtiing comfortable funciton at home. Rehabilitation Potential: Fair Anticipated Interventions Patient/Client Instruction: Educate patient on: Condition and Plan of Care For the Purpose of:: To decrease pain, To increase ROM, To improve nutrient delivery to tissue, To improve muscle performance and motor function and To increase tolerance to activity/condition/position Therapeutic Exercise to Include: Strength training, Flexibilty training, Passive ROM, Active ROM and Scapular Strength/Stabilization For the Purpose of:: To decrease pain, To increase ROM, To improve nutrient delivery to tissue and To improve muscle performance and motor function Manual Therapy Techniques to Include: Petrissage, Trigger point massage, Mobilization, Passive ROM and Soft tissue mobilization For the Purpose of:: To decrease pain, To increase ROM, To improve nutrient delivery to tissue and To improve muscle performance and motor function Thermo therapy (hot pack): Yes For the Purpose of:: To decrease pain Text: Thank you for the opportunity to evaluate your patient. For Medicare and Medicare HMO plans, please review the plan of care and approve it. It will need to be FAXED BACK to us at [phone] for Medicare purposes. For Medicare only, by signing this I certify the plan of care. Please let me know if there are questions or concerns regarding this plan of care. Physician Signature: __Date:
--- NOTE | 2023-09-04 15:32 | HP.PT.NRP ---
Patient Information Patient Information: FREDDIE DUMONT was seen in my office for initial evaluation on 07/02/23. The following Plan of Care was established for this patient: POC Established Initial Frequency: 2x /Week Initial Duration: 4-6 Weeks Anticipated Interventions Patient/Client Instruction: Educate patient on: Condition and Plan of Care For the Purpose of:: To decrease pain, To increase ROM, To improve nutrient delivery to tissue, To improve muscle performance and motor function and To increase tolerance to activity/condition/position Therapeutic Exercise to Include: Strength training, Flexibilty training, Passive ROM, Active ROM and Scapular Strength/Stabilization For the Purpose of:: To decrease pain, To increase ROM, To improve nutrient delivery to tissue and To improve muscle performance and motor function Manual Therapy Techniques to Include: Petrissage, Trigger point massage, Mobilization, Passive ROM and Soft tissue mobilization For the Purpose of:: To decrease pain, To increase ROM, To improve nutrient delivery to tissue and To improve muscle performance and motor function Thermo therapy (hot pack): Yes For the Purpose of:: To decrease pain Last Seen Last Seen: This patient was last seen in our office 07/19/23. Pertinent comments regarding their Physical therapy will appear below: Pt seen 6 visits of POC and then cancelled remaining due to illness. At this point, it has been over 6 weeks and I will discontinue due to nonattendance. At this point I will be discontinuing this patient from physical therapy. I would be happy to see this patient again in the future if found appropriate by the physician. Thank you! Harrison Wright, DPT, OCS, CSCS Balance/Gait/Functional tests Balance/Special Test Scores Oswestry Neck Score: 14
== END 2023-07-19 19:00 | disposition home or self-care (01) ==
LOC: PT 12:00
PROVIDERS: PCP Family Medicine; Referring Provider Family Medicine; Visit Provider Family Medicine
DX: M54.2 Cervicalgia (principal); M40.204 Unspecified kyphosis, thoracic region
CPT/HCPCS: 97110; 97140; 97161

== ENCOUNTER 2023-07-23 08:30 | Emergency (ER) | payer MEDICARE, BC, SELFPAY ==
[2023-07-23] VITALS (11 sets, daily range): BP systolic 109–136; BP diastolic 68–90; PULSE 66–82; RESP 15–24; TEMP 36.1–36.9; O2SAT 87–93; BMI 28.5
--- NOTE | 2023-07-23 08:51 | ED.VIS.DYS ---
HPI History of Present Illness Chief Complaint: Shortness of Breath [facility] Medical History Hyperlipidemia COPD (chronic obstructive pulmonary disease) Carotid artery stenosis Osteoarthritis of right hip Angioedema Diastolic dysfunction Throat clearing Moist mucous membranes of ear, nose, and throat Cough Oral thrush Carotid artery, internal, occlusion MARYJO (obstructive sleep apnea) Smoking greater than 30 pack years Chronic diastolic (congestive) heart failure Orthostatic hypotension Fatigue Hypersomnia Parkinson's disease Mild cognitive impairment Benign localized hyperplasia of prostate with urinary obstruction and lower urinary tract symptoms Weak urinary stream Urinary frequency Urge incontinence of urine Tobacco abuse counseling Tobacco abuse Shortness of breath on exertion Snoring Postoperative hypothyroidism Observed sleep apnea Nocturia Laryngeal spasm Hypertension Hypercholesterolemia Hoarseness of voice Elevated brain natriuretic peptide (BNP) level Elevated troponin level Fungal infection Change in voice CAD (coronary artery disease) Breathing difficult Bradycardia ACS (acute coronary syndrome) Asthma History of nuclear stress test Acute deep vein thrombosis of lower extremity Abnormal CT of the chest Dyspnea Wears glasses Alcohol use Arthritis DVT (deep venous thrombosis) Gastric reflux Smoker Cricopharyngeal dysphagia Parasomnia Bilateral hearing loss Spasm of vocal cords High cholesterol Hypothyroidism Home Medications ?Medication ?Instructions ?Recorded ?Last Taken ?Type levothyroxine 150 mcg tablet 150 mcg PO DAILY thyroid 01/13/21 Unknown History (Synthroid) aspirin 81 mg chewable tablet 81 mg PO DAILY heart health 01/24/22 Unknown History (Luis Alberto Chewable Low Dose Aspirin) clopidogrel 75 mg tablet 75 mg PO DAILY anit platelet 01/24/22 Unknown History ezetimibe 10 mg tablet 10 mg PO DAILY as prescribed 01/24/22 Unknown History metoprolol succinate 25 mg 12.5 mg PO DAILY bp 01/24/22 Unknown History tablet,extended release 24 hr rosuvastatin 5 mg tablet 5 mg PO DAILY cholesterol 01/24/22 Unknown History tamsulosin 0.4 mg capsule 0.4 mg PO BID prostate 05/17/22 Unknown History furosemide 40 mg tablet (Lasix) 40 mg PO DAILY diuretic 06/04/22 Unknown History Handicap placard #1 ea 10/01/22 Unknown Rx carbidopa 25 mg-levodopa 100 mg 2 tab PO TID parkinsons #540 tabs 01/31/23 Unknown Rx tablet ipratropium 0.5 mg-albuterol 3 mg 3 ml inhalation Q4H PRN PRN SOB 05/17/23 Unknown Rx (2.5 mg base)/3 mL nebulization &/OR WHEEZING #180 mL soln albuterol sulfate 90 mcg/actuation 2 puff inhalation Q8H PRN 06/10/23 Unknown History aerosol inhaler shortness of breath or wheezing budesonide-formoterol HFA 160 2 inh inhalation BID as directed 06/14/23 Unknown Rx mcg-4.5 mcg/actuation aerosol #1 ea inhaler (Symbicort) omeprazole 40 mg capsule,delayed 40 mg PO DAILY gerd 06/18/23 Unknown History release tizanidine 2 mg tablet 2 mg PO Q6H PRN muscle spasticity 06/21/23 Unknown History budesonide 160 mcg-glycopyr 9 2 inh inhalation BID #10.7 grams 07/09/23 Unknown Rx mcg-formot 4.8 mcg/actuation HFA inhaler (Breztri Aerosphere) potassium chloride 20 mEq 20 meq PO DAILY #90 tabs 07/10/23 Unknown Rx tablet,extended release azithromycin 500 mg tablet 500 mg PO DAILY 5 days #5 tabs 07/23/23 Unknown Rx prednisone 50 mg tablet 50 mg PO DAILY #5 tabs 07/23/23 Unknown Rx Allergy/AdvReac Type Severity Reaction Status Date / Time vibegron (From [place]) Allergy Severe Rash Verified 07/09/23 11:26 Family History Father COPD (chronic obstructive pulmonary disease) Emphysema lung Myocardial infarction Mother Parkinsons disease Malignant melanoma Surgical History 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 artery (~06/06/21) H/O cardiac catheterization (~06/06/21) Hx of arthroscopy of knee H/O knee surgery H/O thyroidectomy Social History Smoking Status: Former smoker Tobacco: How many years used: 45 second hand exposure: Yes alcohol intake: former substance use type: does not use caffeine: Yes (daily) Type: coffee Number of servings: 2 what type of physical activity do you participate in: walking seatbelt use: sometimes EXAM Physical Exam Const Vital Signs: 07/23/23 08:32 07/23/23 08:33 07/23/23 08:44 Temperature 96.9 F L 98.5 F Temperature Source Temporal Oral Pulse Rate 75 72 Respiratory Rate 24 H 19 H Respiratory Effort Respiratory Depth Respiratory Pattern Blood Pressure 109/68 121/83 H Blood Pressure Mean 81 95 Pulse Ox 87 90 93 Oxygen Delivery Method Room Air Nasal Cannula Nasal Cannula Oxygen Flow Rate (L/min) 2 2 07/23/23 08:54 07/23/23 08:55 07/23/23 09:44 Temperature Temperature Source Pulse Rate 68 Respiratory Rate 15 Respiratory Effort Short of Breath Labored Respiratory Depth Normal Respiratory Pattern Tachypnea Normal Blood Pressure Blood Pressure Mean Pulse Ox 93 Oxygen Delivery Method Nasal Cannula Nasal Cannula Oxygen Flow Rate (L/min) 3 3 07/23/23 09:44 07/23/23 10:00 07/23/23 10:22 Temperature Temperature Source Pulse Rate 66 71 Respiratory Rate 24 H 15 Respiratory Effort Respiratory Depth Respiratory Pattern Normal Blood Pressure 121/88 H Blood Pressure Mean 99 Pulse Ox 88 91 Oxygen Delivery Method Room Air Nasal Cannula Oxygen Flow Rate (L/min) 4 07/23/23 10:40 Temperature Temperature Source Pulse Rate 80 Respiratory Rate 19 H Respiratory Effort Respiratory Depth Respiratory Pattern Normal Blood Pressure Blood Pressure Mean Pulse Ox Oxygen Delivery Method Oxygen Flow Rate (L/min) [facility] MDM MDM Narrative Medical decision making narrative: HISTORY OF PRESENT ILLNESS: 63-year-old male presents with shortness of breath for the last couple days. Per patient he typically wears oxygen as needed secondary to having history of COPD but has been wearing oxygen continuously for the last several days. Notes increasing shortness of breath dyspnea on exertion. Also endorses nonbloody diarrhea. 1 episode of loose stool last night. Denies chest pain. Denies leg swelling. The patient denies recent surgery in the last 4 weeks or immobilization in the last 3 days, denies previous diagnosis of DVT or PE, hemoptysis, unilateral leg swelling or malignancy with treatment the last 6 months or palliative. No estrogen use noted. Denies any bleeding diathesis. Denies any vomiting. Per nursing report patient 86% in triage. REVIEW OF SYSTEMS: Pertinent positives: Shortness of breath, diarrhea Pertinent negatives: Vomiting, melena, medic easier, leg swelling, chest pain PHYSICAL EXAM: Nursing triage notes reviewed, Vital signs reviewed Constitutional: please see mdm HENT: MMM Eyes: Pupils equal round and reactive to light, Extraocular muscles intact Neck: No stridor, no JVD, full neck ROM Lungs: Diminished breath sounds throughout, prolonged expiratory phase, bilateral expiratory wheezes noted no increased work of breathing, no conversational dyspnea, no accessory muscle use, no nasal flaring. No respiratory distress noted Heart: Regular rate and rhythm, No murmurs, No rubs and No gallops, 2+ distal pulses (radial, femoral, posterior tibial) in all extremities Abdomen: Soft, there is no tenderness, rigidity, rebound or guarding, no obvious peritoneal signs, no palpable pulsatile abdominal masses, no auscultated abdominal bruit : No CVAT Extremities: No edema Neuro: No focal neurological deficits, cranial nerves II through XII intact, 5/5 strength in all extremities. Intact sensation to light touch in all extremities, 2+ reflexes bilateral patella tendons. Normal gait. No ataxia. Skin: No rash or lesions noted MEDICAL DECISION MAKING: Chief Complaint: Shortness of breath External records reviewed: CT scan of patient's chest from 2023 shows no evidence of acute or chronic lung pathology Factors affecting care: COPD, CHF, hypertension, hyperlipidemia, coronary artery disease, asthma, Social determinants of health: Former smoker History obtained from others: Patient's Consults: none MDM Narrative: Patient was hemodynamically stable, afebrile nontoxic-appearing. Lungs with wheezes consistent with COPD exacerbation I considered the following differential diagnosis: ACS, arrhythmia, anemia, electrolyte disturbance, ALL IMAGES (IF OBTAINED) HAVE BEEN PERSONALLY REVIEWED AND INTERPRETED BY MYSELF. CBC without leukocytosis, severe anemia, no thrombocytopenia. I have personally reviewed the patient's chest x-ray. Chest x-ray is unremarkable for pulmonary edema, pneumothorax, pneumonia or focal cardiopulmonary abnormality. EKG with normal sinus rhythm, left axis deviation, normal normals, no STEMI VBG without evidence of respiratory acidosis BMP within normal limits suggestive of no ventricular stretch or signs of heart failure High-sensitivity troponin is negative, no evidence of myocardial ischemia The Synthesis of the patient's history, physical exam, labs images suggest likely COPD exacerbation. This is mild. Patient was weaned from 2 L to no oxygen and saturating 88 to 92%. Does have oxygen at home which is reassuring and precludes hospitalization for transient hypoxia. He noted symptomatic improvement after breathing treatments and steroids. He was given prescription for prednisone, azithromycin and strict return precautions. The patient and/or family, caregivers express understanding. The patient and/or family, caregivers agrees with the plan. Shared decision making: I will have a discussion with the patient and or visitors regarding risk/benefits of further testing or admission. They will be made aware of of the risk/benefits inherent in this decision they will be given the opportunity to voice understanding. Total critical care time today provided was at least 0 minutes. This excludes separately billable procedures. Critical care time (if documented) is secondary to the patient having high probability of clinically significant/life threatening deterioration in the patient's condition which required my urgent intervention. Impression: 1. Dyspnea 2. COPD exacerbation 3. Hypoxia Dispo: Discharge home This note was generated with [employer] dictation software. It may contain incorrect words, spelling, and punctuation that were not noted in review of the chart prior to signing. Lab Data Labs: Laboratory Results - last 24 hr 07/23/23 09:00 WBC 10.0 RBC 4.79 Hgb 14.6 Hct 45.1 MCV 94.2 H MCH 30.5 MCHC 32.4 RDW Std Deviation 44.5 H RDW Coeff of Nick 12.9 Plt Count 161 MPV 12.0 Immature Gran % (Auto) 0.200 Neut % (Auto) 80.2 H Lymph % (Auto) 12.9 L [facility] % (Auto) 5.3 Eos % (Auto) 1.1 Baso % (Auto) 0.3 Absolute Neuts (auto) 8.0 H Absolute Lymphs (auto) 1.29 Nucleated RBC % 0 Sodium 137 Potassium 3.6 Chloride 101 Carbon Dioxide 30.0 Anion Gap 6 BUN 12 Creatinine 1.35 H Estim Creat Clear Calc 59.82 Est GFR (MDRD) Af Amer 68 Est GFR (MDRD) Non-Af 56 L BUN/Creatinine Ratio 8.9 L Glucose 125 H Calcium 9.5 Troponin I High Sens 19 B-Natriuretic Peptide 15.6 ABG Data ABG results: ABG 07/23/23 09:10 Specimen Type JOIE Sample Site Not entered O2 % 21.0 VBG pH 7.36 VBG pO2 27 VBG HCO3 31 H VBG Total CO2 33 VBG O2 Sat (Calc) 47 L VBG Base Excess 5 H POC Mix VBG pCO2 Pt Tmp 54.2 H O2 Delivery Device Not entered Radiography Diagnostic Testing: Clinical Impression(s) from Imaging Studies Chest X-Ray 07/23/23 08:53 IMPRESSION: Mild degree of vascular congestion. Mild increased markings at the lung bases suggestive of bibasilar atelectasis. Electronically Signed: Akshat Pinto MD at 9:41 EDT , Discharge Plan Triage Chief Complaint: Shortness of Breath ED Provider: Robin Sandoval Dx/Rx/DC Orders Instructions: ED COPD Flare Prescriptions: New prednisone 50 mg tablet 50 mg PO DAILY Qty: 5 0RF azithromycin 500 mg tablet 500 mg PO DAILY 5 Days Qty: 5 0RF No Action tamsulosin 0.4 mg capsule 0.4 mg PO BID furosemide [Lasix] 40 mg tablet 40 mg PO DAILY carbidopa-levodopa 25-100 mg tablet 2 tab PO TID Qty: 540 2RF tizanidine 2 mg tablet 2 mg PO Q6H PRN (Reason: muscle spasticity) albuterol sulfate 90 mcg/actuation HFA aerosol inhaler 2 puff inhalation Q8H PRN (Reason: shortness of breath or wheezing) omeprazole 40 mg capsule,delayed release(DR/EC) 40 mg PO DAILY Rx Instructions: Take one cap by mouth two times a day for eight weeks. Then will taper. Breztri Aerosphere 160-9-4.8 mcg/actuation HFA aerosol inhaler 2 inh inhalation BID Qty: 10.7 3RF levothyroxine [Synthroid] 150 mcg tablet 150 mcg PO DAILY clopidogrel 75 mg tablet 75 mg PO DAILY aspirin [Luis Alberto Chewable Aspirin] 81 mg tablet,chewable 81 mg PO DAILY Patient Comments: 1 tablet by mouth once a day metoprolol succinate 25 mg tablet extended release 24 hr 12.5 mg PO DAILY ezetimibe 10 mg tablet 10 mg PO DAILY rosuvastatin 5 mg tablet 5 mg PO DAILY (DME) Handicap placard See Rx Instructions .Route .MEDSUPPLY Qty: 1 0RF Rx Instructions: Expiration: 10/01/2025 ipratropium-albuterol 0.5 mg-3 mg(2.5 mg base)/3 mL solution for nebulization 3 ml inhalation Q4H PRN PRN (Reason: SOB &/OR WHEEZING) Qty: 180 11RF budesonide-formoterol [Symbicort] 160-4.5 mcg/actuation HFA aerosol inhaler 2 inh inhalation BID Qty: 1 3RF Rx Instructions: administer with spacer, rinse mouth after each use potassium chloride 20 mEq tablet extended release 20 meq PO DAILY Qty: 90 3RF Primary Care Provider: Cisco Dozier Referrals: Cisco Dozier, [Primary Care Provider] - Activity Restrictions/Additional Instructions: Thank you for trusting us with your care today! Please take prednisone as prescribed. Please take azithromycin as prescribed Please return to the emergency department if your symptoms change or worsen. Please follow with your primary care physician for further outpatient evaluation and management. Print Language: Welsh Disposition Disposition: Home, Self Care
--- NOTE | 2023-07-23 08:53 | EKG12_ITS ---
Test Reason : Blood Pressure : / mmHG Vent. Rate : 072 BPM Atrial Rate : 072 BPM P-R Int : 158 ms QRS Dur : 088 ms QT Int : 382 ms P-R-T Axes : 045 -21 020 degrees QTc Int : 418 ms Normal sinus rhythm with sinus arrhythmia Normal ECG Confirmed by aMuro Sraavia ([id number]), general expeditor ASHLEY DASILVA ([id number]) on 07/24/2023 2:51:53 PM Referred By: Confirmed By:Mauro Saravia
--- NOTE | 2023-07-23 08:53 | RAD_ITS ---
STUDY: X-RAY CHEST REASON FOR EXAM: Male, 63 years old. SOB TECHNIQUE: Single AP portable view of the chest. COMPARISON: Comparison is made with prior study May 16, 2023. FINDINGS: EKG electrodes are seen. Mild degree of vascular congestion. Mild bibasilar atelectasis. There is no demonstrated pleural abnormality. There is borderline cardiomegaly. Normal mediastinum and marv. Normal visualized pulmonary arteries. There is atherosclerotic tortuosity of the aortic arch and descending thoracic aorta. There are diffuse degenerative changes of the visualized thoracic spine. Normal visualized ribs, clavicles, and shoulders. There is no demonstrated abnormality of the visualized soft tissue structures of the upper abdomen. RAD/Chest 1 View (Portable) IMPRESSION: Mild degree of vascular congestion. Mild increased markings at the lung bases suggestive of bibasilar atelectasis. Electronically Signed: Akshat Pinto MD at 9:41 EDT ,
[2023-07-23 09:14] LABS: Absolute Lymphocyte Count 1.29 X10^3/uL (0.83-4.51); Basophil# 0.03 X10^3/uL; Basophil% 0.3 % (0-1); Eosinophil# 0.11 X10^3/uL; Eosinophils% 1.1 % (0-5); Hematocrit 45.1 % (40-54); Hemoglobin 14.6 g/dL (13.0-16.5); Lymphocyte # 1.29 X10^3/ul (0.83-4.51); Lymphocyte % 12.9 % (19-41); Mean Corp Hgb Conc 32.4 g/dL (32-36); Mean Corpuscular Hgb 30.5 pg (27.0-32.0); Mean Corpuscular Volume 94.2 fL (80-94); Monocyte# 0.53 X10^3/uL; Monocyte% 5.3 % (0-10); NRBC Flagged by Analyzer 0 % (0-5); Neutrophil % 80.2 % (47-70); Platelet Count 161 K/mm3 (150-450); RBC Distribution Width CV 12.9 % (11.6-14.6); RBC Distribution Width SD 44.5 fl (35.1-43.9); Red Blood Count 4.79 M/mm3 (4.6-6.2)
[2023-07-23 09:16] LABS: Blood Gas Specimen Type VEN; O2 Delivery Device Not entered; SITE Not entered; VBG BASE EXCESS 5 mmol/L (-1.0-3.5); VBG Bicarbonate 31 mmol/L (22-26); VBG PO2 27 mmHg (25-40); VBG SO2 47 % (50-70); VBG TCO2 33 mmol/L (23-33); VBG pCO2 54.2 mmHg (41-51); VBG pH 7.36 (7.32-7.42)
[2023-07-23 09:35] LABS: Anion Gap 6 (5-15); BUN 12 mg/dL (7-18); BUN/Creat Ratio 8.9 RATIO (10-20); Calcium,Total 9.5 mg/dL (8.5-10.1); Chloride 101 mmol/L (98-107); Creatinine, Serum 1.35 mg/dL (0.70-1.30); EST Glomerular Filtration Rate 56 mL/min (>60); Est Glom Filt Rate - Afr Amer 68 mL/min (>60); Estimated Creatinine Clearance 59.82 ml/min; Glucose 125 mg/dL (74-106); Potassium 3.6 mmol/L (3.5-5.1); Sodium Level 137 mmol/L (136-145); Troponin-I HS 19 pg/mL (3.0-78.0)
[2023-07-23] MEDS: Ipratropium/Albuterol Sulfate 3 ML AMPUL.NEB INHALATION ×3 (09:44→10:40)
[2023-07-23 09:45] LABS: BNP,B-Type NATRIURETIC PEPTIDE 15.6 pg/mL (0-100)
[2023-07-23] MEDS: MethylPREDNISolone 125 MG/2 ML Vial IV (09:57)
== END 2023-07-23 11:23 | disposition home or self-care (01) ==
PROVIDERS: Emergency Provider Emergency Medicine; PCP Family Medicine; Visit Provider Emergency Medicine
DX: J44.1 Chronic obstructive pulmonary disease with (acute) exacerbation (principal); I11.0 Hypertensive heart disease with heart failure; I50.32 Chronic diastolic (congestive) heart failure; I25.10 Atherosclerotic heart disease of native coronary artery without angina pectoris; Z87.891 Personal history of nicotine dependence; R09.02 Hypoxemia; E78.00 Pure hypercholesterolemia, unspecified; K21.9 Gastro-esophageal reflux disease without esophagitis
CPT/HCPCS: 71045; 80048; 82803; 83880; 84484; 85025; 93005; 94640; 96374; 99284; A4216

== ENCOUNTER → 2023-07-25 | Outpatient (CLI) | payer MEDICARE, BC, SELFPAY ==
--- NOTE | 2023-07-25 06:24 | ECHOD_ITS ---
Reason For Study: DYSPNEA Procedure This was a 2D Doppler, Color Flow transthoracic echocardiogram. Exam performed in department. Left Ventricle Mild concentric left ventricular hypertrophy. Normal LV size. The left ventricular ejection fraction is 65 %. Normal diastology for age. Right Ventricle Normal right ventricle. Atria The left and right atria are normal. Mitral Valve Normal mitral valve. Tricuspid Valve Normal tricuspid valve. Aortic Valve Trisinus/trileaflet aortic valve. Pulmonic Valve The pulmonic valve is not well visualized. Great Vessels Normal sized aortic root. Pericardium/Pleural No pericardial effusion. MMode/2D Measurements & Calculations LVIDd: 4.4 cm IVSd: 1.3 cm Ao root diam: 3.5 cm LVIDs: 3.0 cm LVPWd: 1.1 cm RVDd: 4.0 cm FS: 31.3 % LAV(MOD-bp): 59.5 ml LVAd ap4: 33.5 cm2 SV(MOD-sp4): 65.2 ml LAV(MOD-bp) Indexed: 28.8 ml/m2 LVLd ap4: 8.9 cm LAV(MOD-sp2): 46.7 ml EDV(MOD-sp4): 105.1 ml LAV(MOD-sp4): 59.0 ml EDV(sp4-el): 106.7 ml LVAs ap4: 18.6 cm2 LVLs ap4: 7.2 cm ESV(MOD-sp4): 39.9 ml ESV(sp4-el): 40.7 ml EF(MOD-sp4): 62.0 % EF(sp4-el): 61.8 % SV(sp4-el): 66.0 ml LA A4 area: 21.7 cm2 LA dimension(2D): 4.1 cm RA A4 area: 18.8 cm2 TAPSE: 2.4 cm Time Measurements MV dec time: 0.16 sec Doppler Measurements & Calculations MV E max pete: 89.9 cm/sec Lat Peak E' Pete: 10.5 cm/sec Med Peak E' Pete: 8.2 cm/sec MV A max pete: 91.0 cm/sec E/E' lat: 8.5 E/E' med: 10.9 MV E/A: 0.99 MV V2 max: 94.5 cm/sec Ao V2 max: 140.2 cm/sec MV max P.6 mmHg MV dec slope: 587.7 cm/sec2 Ao max P.9 mmHg MV V2 mean: 57.4 cm/sec Ao V2 mean: 93.3 cm/sec MV mean P.5 mmHg Ao mean P.0 mmHg MV V2 VTI: 34.5 cm Ao V2 VTI: 33.6 cm AV (velocity ratio): 1.0 LV V1 max: 129.7 cm/sec PA V2 max: 103.9 cm/sec LV V1 max P.7 mmHg PA V2 mean: 71.6 cm/sec LV V1 mean P.8 mmHg LV V1 mean: 91.2 cm/sec LV V1 VTI: 33.7 cm ECHO/Echo Complete Interpretation Summary The left ventricular ejection fraction is 65 %. Mild concentric left ventricular hypertrophy. Ordering Physician: Gilbert Hoang Referring Physician: Gilbert Hoang Performed By: Iram Quevedo RCS
[2023-07-25 11:45] LABS: Cholesterol 107 mg/dL (200); High Density Lipoprotein 58 mg/dL; Triglycerides 91 mg/dL; Very Low Density Lipoprotein 18 mg/dL (5-40)
--- NOTE | 2023-07-25 12:19 | STRESSREP_ITS ---
Stress Test Report Date: 07/25/2023 Procedure: Pharmacologic stress nuclear imaging study Indications: Dyspnea Consent: Per the patient Procedure: The patient underwent pharmacologic (Regadenoson 0.4mg ) evaluation with a peak heart rate of 81 beats per minute (52%predicted maximal heart rate) and a peak blood pressure of 138/80 mmHg. The baseline ECG demonstrated sinus rhythm. The peak pharmacologic ECG demonstrated no ischemic changes. There were no cardiac dysrhythmias pretest, during pharmacologic infusion, or recovery. There was no complaint of chest discomfort during pharmacologic infusion or recovery. The patient was injected with 13.9 millicuries of technetium 99m Cardiolite and subsequently rest SPECT Cardiolite nuclear imaging was obtained in the horizontal long, vertical long, and short axis views. The patient underwent pharmacologic (Regadenoson) evaluation. The patient was injected with 43.7 millicuries of technetium 99m Cardiolite and subsequently stress SPECT Cardiolite nuclear imaging was obtained in the horizontal long, vertical long, and short axis views. A gated Cardiolite study at peak stress was obtained. The examination was stopped secondary to completion of protocol. Rest and stress SPECT Cardiolite nuclear imaging status post realignment, normalization, and attenuation correction demonstrate no fixed or reversible perfusion defects. There is end systolic thickening and brightening. The gated Cardiolite study demonstrates myocardial thickening and inward wall motion. The reported LVEF is 63%. Impression: 1. Pharmacologic (Regadenoson) evaluation 2. Peak pharmacologic ECG with no ischemic changes. 3. There were no cardiac dysrhythmias pretest, during pharmacologic infusion, or recovery. 5. Rest and stress SPECT Cardiolite nuclear imaging demonstrate relative uniform tracer uptake and myocardial perfusion appearing within normal limits. 6. The gated Cardiolite study reports an LVEF of 63%. This note was generated with [employer] software. It may contain incorrect words, spelling, and punctuation that were not noted in checking the note before signing.
== END | disposition home or self-care (01) ==
PROVIDERS: PCP Family Medicine; Referring Provider Internal Medicine Cardiovascular Disease; Visit Provider Internal Medicine Cardiovascular Disease
DX: R06.83 Snoring (principal); J44.9 Chronic obstructive pulmonary disease, unspecified; R06.02 Shortness of breath; Z95.5 Presence of coronary angioplasty implant and graft; E03.9 Hypothyroidism, unspecified; E78.00 Pure hypercholesterolemia, unspecified; I11.9 Hypertensive heart disease without heart failure
CPT/HCPCS: 36415; 78452; 80061; 93017; 93306; A9500; A4216; J2785

== ENCOUNTER → 2023-08-02 | Outpatient (CLI) | payer MEDICARE, BC, SELFPAY ==
--- NOTE | 2023-08-02 13:30 | CT_ITS ---
STUDY: CT SOFT TISSUE NECK WITH CONTRAST REASON FOR EXAM: Male, 63 years old. Paralysis of vocal cords and larynx, bilateral RADIATION DOSAGE (If Supplied By Facility): CTDIvol = ( 18.19 ) mGy, DLP = ( 513.58 ) mGycm TECHNIQUE: The patient was scanned in a multi-detector CT scanner. High resolution transaxial imaging was performed following intravenous administration of IV 75mL Isovue-370. Sagittal and coronal images were reconstructed. Individualized dose optimization techniques were used for this CT. COMPARISON: Comparison is made with prior study dated July 29, 2020. FINDINGS: Small benign-appearing mediastinal lymph nodes superiorly. Normal bilateral parotid glands. Normal bilateral information technology coordinator spaces. Normal bilateral parapharyngeal spaces. Normal bilateral carotid spaces. Normal bilateral sublingual and submandibular glands and spaces. Normal visualized nasopharynx. Normal retropharyngeal space. Normal perivertebral space. Normal visualized bilateral faucial tonsils. The visualized tongue, tongue base and oropharynx are normal. There are minimally enlarged lymph nodes of the neck, with preservation of normal emilia architecture, consistent with a reactive lymph hyperplasia. There is no demonstrated solid or cystic mass lesion. There is no abnormal contrast enhancement. Normal epiglottis, bilateral vallecula and hypopharynx. The pre-epiglottic and paraglottic adipose spaces are normal. Normal visualized bilateral piriform sinuses, aryepiglottic folds, vocal cords, and arytenoid-cricoid articulations. Normal subglottic trachea. The patient is status post thyroidectomy. Normal visualized pulmonary apices. Normal visualized paranasal sinuses. There is degenerative changes of the cervical spine. CT/Soft Tissue Neck WITH Contrast IMPRESSION: Status post thyroidectomy. Small cervical lymph nodes are seen. These measure within normal limits. Electronically Signed: Akshat Pinto MD at 13:49 EDT ,
== END | disposition home or self-care (01) ==
LOC: CT 13:21
PROVIDERS: PCP Family Medicine; Referring Provider Otolaryngology; Visit Provider Otolaryngology
DX: J38.02 Paralysis of vocal cords and larynx, bilateral (principal)
CPT/HCPCS: 70491; Q9967

== ENCOUNTER 2023-08-13 12:43 | Inpatient (IN) | payer MEDICARE, BC, SELFPAY ==
[2023-08-13] VITALS (16 sets, daily range): BP systolic 73–144; BP diastolic 52–89; PULSE 51–89; RESP 15–20; TEMP 36.3–37.2; O2SAT 91–97; BMI 28.6
--- NOTE | 2023-08-13 13:13 | EKG12_ITS ---
Test Reason : SOB Blood Pressure : / mmHG Vent. Rate : 064 BPM Atrial Rate : 064 BPM P-R Int : 150 ms QRS Dur : 086 ms QT Int : 390 ms P-R-T Axes : 040 -12 009 degrees QTc Int : 402 ms Normal sinus rhythm Cannot rule out Inferior infarct , age undetermined Abnormal ECG Confirmed by Mauro Saravia ([id number]), acquisition editor JULIÁN BROWN ([id number]) on 08/14/2023 11:40:10 AM Referred By: Confirmed By:Mauro Saravia
[2023-08-13 13:49] LABS: Absolute Lymphocyte Count 1.09 X10^3/uL (0.83-4.51); Absolute Neutrophil Count 4.7 X10^3/uL (2.0-7.7); Basophil# 0.02 X10^3/uL; Basophil% 0.3 % (0-1); Eosinophil# 0.05 X10^3/uL; Eosinophils% 0.8 % (0-5); Hematocrit 45.4 % (40-54); Hemoglobin 14.6 g/dL (13.0-16.5); Lymphocyte # 1.09 X10^3/ul (0.83-4.51); Lymphocyte % 17.5 % (19-41); Mean Corp Hgb Conc 32.2 g/dL (32-36); Mean Corpuscular Hgb 30.3 pg (27.0-32.0); Mean Corpuscular Volume 94.2 fL (80-94); Monocyte# 0.35 X10^3/uL; Monocyte% 5.6 % (0-10); NRBC Flagged by Analyzer 0 % (0-5); Neutrophil # 4.72 X10^3/uL (2.7-7.7); Neutrophil % 75.6 % (47-70); Platelet Count 150 K/mm3 (150-450); RBC Distribution Width CV 13.4 % (11.6-14.6); RBC Distribution Width SD 45.7 fl (35.1-43.9); Red Blood Count 4.82 M/mm3 (4.6-6.2); White Blood Count 6.2 K/mm3 (4.4-11.0)
[2023-08-13 14:10] LABS: Anion Gap 4 (5-15); BUN 16 mg/dL (7-18); BUN/Creat Ratio 11.3 RATIO (10-20); Calcium,Total 9.5 mg/dL (8.5-10.1); Chloride 102 mmol/L (98-107); Creatinine, Serum 1.42 mg/dL (0.70-1.30); EST Glomerular Filtration Rate 53 mL/min (>60); Est Glom Filt Rate - Afr Amer 64 mL/min (>60); Estimated Creatinine Clearance 56.95 ml/min; Glucose 110 mg/dL (74-106); Potassium 3.9 mmol/L (3.5-5.1); Sodium Level 137 mmol/L (136-145); Troponin-I HS 18 pg/mL (3.0-78.0)
--- NOTE | 2023-08-13 14:43 | ED.VIS.DYS ---
HPI History of Present Illness Chief Complaint: Shortness of Breath Informant: patient and spouse/S.O. Narrative Narrative: 63-year-old male presenting to the emergency room with a chief complaint of dyspnea. Patient states that he has a history of asthma/COPD and follows with local aviation technical systems specialist Dr. uMnoz. He states he wears oxygen at home when he needs to but over the past week has been using it much more frequently. He reports when he gets up with any exertion he feels very shaky and has passed out/fallen several times. She does not believe he is injured himself. His states that he did hit his head on the ground. He denies any change in cough or fever. He states that due to the recent hot temperatures he feared went to cool down he be feeling better but he was not so he decided to come to emergency today. He wears CPAP at night. Patient notes that he has a very poor appetite. He believes he is lost about 25 pounds over the past 3 months. Looking at the chart I see the patient underwent a stress test at the beginning of July. Echocardiogram showed an ejection fraction of 65%. He also has a history of coronary artery disease having a stent placed in 2021 as well as Parkinson's disease. [facility] Medical History (HFpEF) heart failure with preserved ejection fraction Carotid artery disease Dizziness Hypokalemia Vocal cord dysfunction Hypoxia Asthma-COPD overlap syndrome Hyperlipidemia COPD (chronic obstructive pulmonary disease) Carotid artery stenosis Osteoarthritis of right hip Angioedema Diastolic dysfunction Throat clearing Moist mucous membranes of ear, nose, and throat Cough Oral thrush Carotid artery, internal, occlusion MARYJO (obstructive sleep apnea) Smoking greater than 30 pack years Chronic diastolic (congestive) heart failure Orthostatic hypotension Fatigue Hypersomnia Parkinson's disease Mild cognitive impairment Benign localized hyperplasia of prostate with urinary obstruction and lower urinary tract symptoms Weak urinary stream Urinary frequency Urge incontinence of urine Tobacco abuse counseling Tobacco abuse Shortness of breath on exertion Snoring Postoperative hypothyroidism Observed sleep apnea Nocturia Laryngeal spasm Hypertension Hypercholesterolemia Hoarseness of voice Elevated brain natriuretic peptide (BNP) level Elevated troponin level Fungal infection Change in voice CAD (coronary artery disease) Breathing difficult Bradycardia ACS (acute coronary syndrome) Asthma History of nuclear stress test Acute deep vein thrombosis of lower extremity Abnormal CT of the chest Dyspnea Wears glasses Alcohol use Arthritis DVT (deep venous thrombosis) Gastric reflux Smoker Cricopharyngeal dysphagia Parasomnia Bilateral hearing loss Spasm of vocal cords High cholesterol Hypothyroidism Home Medications ?Medication ?Instructions ?Recorded ?Last Taken ?Type levothyroxine 150 mcg tablet 150 mcg PO DAILY thyroid 01/13/21 Unknown History (Synthroid) aspirin 81 mg chewable tablet 81 mg PO DAILY heart health 01/24/22 Unknown History (Luis Alberto Chewable Low Dose Aspirin) clopidogrel 75 mg tablet 75 mg PO DAILY anit platelet 01/24/22 Unknown History ezetimibe 10 mg tablet 10 mg PO DAILY as prescribed 01/24/22 Unknown History metoprolol succinate 25 mg 12.5 mg PO DAILY bp 01/24/22 Unknown History tablet,extended release 24 hr rosuvastatin 5 mg tablet 5 mg PO DAILY cholesterol 01/24/22 Unknown History tamsulosin 0.4 mg capsule 0.4 mg PO BID prostate 05/17/22 Unknown History furosemide 40 mg tablet (Lasix) 40 mg PO DAILY diuretic 06/04/22 Unknown History Handicap placard #1 ea 10/01/22 Unknown Rx carbidopa 25 mg-levodopa 100 mg 2 tab PO TID parkinsons #540 tabs 01/31/23 Unknown Rx tablet ipratropium 0.5 mg-albuterol 3 mg 3 ml inhalation Q4H PRN PRN SOB 05/17/23 Unknown Rx (2.5 mg base)/3 mL nebulization &/OR WHEEZING #180 mL soln albuterol sulfate 90 mcg/actuation 2 puff inhalation Q8H PRN 06/10/23 Unknown History aerosol inhaler shortness of breath or wheezing budesonide-formoterol HFA 160 2 inh inhalation BID as directed 06/14/23 Unknown Rx mcg-4.5 mcg/actuation aerosol #1 ea inhaler (Symbicort) omeprazole 40 mg capsule,delayed 40 mg PO DAILY gerd 06/18/23 Unknown History release tizanidine 2 mg tablet 2 mg PO Q6H PRN muscle spasticity 06/21/23 Unknown History budesonide 160 mcg-glycopyr 9 2 inh inhalation BID #10.7 grams 07/09/23 Unknown Rx mcg-formot 4.8 mcg/actuation HFA inhaler (Breztri Aerosphere) potassium chloride 20 mEq 20 meq PO DAILY #90 tabs 07/10/23 Unknown Rx tablet,extended release azithromycin 500 mg tablet 500 mg PO DAILY 5 days #5 tabs 07/23/23 Unknown Rx prednisone 50 mg tablet 50 mg PO DAILY #5 tabs 07/23/23 Unknown Rx Allergy/AdvReac Type Severity Reaction Status Date / Time vibegron (From Gemtesa) Allergy Severe Rash Verified 07/09/23 11:26 Family History Father COPD (chronic obstructive pulmonary disease) Emphysema lung Myocardial infarction Mother Parkinsons disease Malignant melanoma Surgical History 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 artery (~06/06/21) H/O cardiac catheterization (~06/06/21) Hx of arthroscopy of knee H/O knee surgery H/O thyroidectomy Social History Smoking Status: Former smoker Tobacco: How many years used: 45 second hand exposure: Yes alcohol intake: former substance use type: does not use caffeine: Yes (daily) Type: coffee Number of servings: 2 what type of physical activity do you participate in: walking seatbelt use: sometimes ROS ROS ED ROS Narrative Weakness and frequent falls. Shaky with ambulation Constitutional Constitutional ED: Reports weight loss; Denies chills or fever(s) Eyes Eyes: Denies change in vision or diplopia ENT ENT ED: Denies ear pain, rhinorrhea or sore throat Cardiovascular Cardiovascular: Denies chest pain, orthopnea, palpitations or racing heartbeat Respiratory/Chest Respiratory/Chest: Reports cough, dyspnea, dyspnea on exertion and other Details: No change in chronic cough ; Denies orthopnea Gastrointestinal Gastrointestinal: Denies abdominal pain, diarrhea, nausea or vomiting Genitourinary Genitourinary ED: Denies dysuria, hematuria or urinary frequency Musculoskeletal Musculoskeletal: Denies arthralgias or myalgias Integumentary Denies abscess or rash Neurologic Neurologic: Denies headache(s) or weakness Psychiatric Psychiatric: Denies anxiety, depression, suicidal ideation or suicidal thoughts Endocrine Endocrinology: Denies polydipsia, polyphagia or polyuria Allergic/Immunologic Allergic/Immunologic ED: Denies mouth swelling, tongue swelling or urticaria EXAM Physical Exam Const Vital Signs: 08/13/23 12:43 08/13/23 12:45 08/13/23 12:50 Temperature 98.3 F 97.7 F L Temperature Source Temporal Temporal Pulse Rate 70 67 Pulse Rate [Lying] Pulse Rate [Sitting (for 1 minute prior to obtaining)] Pulse Rate [Standing (for 1 minute prior to obtaining)] Respiratory Rate 16 17 Respiratory Effort Short of Breath Respiratory Depth Normal Respiratory Pattern Blood Pressure 118/82 H 120/79 Blood Pressure [Lying] Blood Pressure [Sitting (for 1 minute prior to obtaining)] Blood Pressure [Standing (for 1 minute prior to obtaining)] Blood Pressure Mean 94 92 Blood Pressure Mean [Lying] Blood Pressure Mean [Sitting (for 1 minute prior to obtaining)] Blood Pressure Mean [Standing (for 1 minute prior to obtaining)] Pulse Ox 97 92 Oxygen Delivery Method Room Air Room Air Room Air 08/13/23 13:45 08/13/23 13:45 08/13/23 13:45 Temperature 98 F Temperature Source Temporal Pulse Rate 61 Pulse Rate [Lying] Pulse Rate [Sitting (for 1 minute prior to obtaining)] Pulse Rate [Standing (for 1 minute prior to obtaining)] Respiratory Rate 18 18 Respiratory Effort Respiratory Depth Respiratory Pattern Blood Pressure 95/68 Blood Pressure [Lying] Blood Pressure [Sitting (for 1 minute prior to obtaining)] Blood Pressure [Standing (for 1 minute prior to obtaining)] Blood Pressure Mean 77 Blood Pressure Mean [Lying] Blood Pressure Mean [Sitting (for 1 minute prior to obtaining)] Blood Pressure Mean [Standing (for 1 minute prior to obtaining)] Pulse Ox 92 95 Oxygen Delivery Method Room Air Room Air Room Air 08/13/23 14:00 08/13/23 14:43 08/13/23 14:49 Temperature 97.3 F L Temperature Source Temporal Pulse Rate 59 L 89 Pulse Rate [Lying] 54 L Pulse Rate [Sitting (for 1 minute prior to obtaining)] 58 L Pulse Rate [Standing (for 1 minute prior to obtaining)] 73 Respiratory Rate 16 16 Respiratory Effort Respiratory Depth Respiratory Pattern Blood Pressure 93/67 134/66 H Blood Pressure [Lying] 118/75 Blood Pressure [Sitting (for 1 minute prior to obtaining)] 96/67 Blood Pressure [Standing (for 1 minute prior to obtaining)] 73/52 L Blood Pressure Mean 75 88 Blood Pressure Mean [Lying] 89 Blood Pressure Mean [Sitting (for 1 minute prior to obtaining)] 76 Blood Pressure Mean [Standing (for 1 minute prior to obtaining)] 59 Pulse Ox 91 94 Oxygen Delivery Method Room Air Room Air 08/13/23 15:00 08/13/23 16:00 08/13/23 16:00 Temperature 97.6 F L 97.3 F L 97.3 F L Temperature Source Temporal Temporal Temporal Pulse Rate 54 L 51 L 53 L Pulse Rate [Lying] Pulse Rate [Sitting (for 1 minute prior to obtaining)] Pulse Rate [Standing (for 1 minute prior to obtaining)] Respiratory Rate 20 H 17 17 Respiratory Effort Respiratory Depth Respiratory Pattern Blood Pressure 117/81 H 139/89 H 139/89 H Blood Pressure [Lying] Blood Pressure [Sitting (for 1 minute prior to obtaining)] Blood Pressure [Standing (for 1 minute prior to obtaining)] Blood Pressure Mean 93 105 105 Blood Pressure Mean [Lying] Blood Pressure Mean [Sitting (for 1 minute prior to obtaining)] Blood Pressure Mean [Standing (for 1 minute prior to obtaining)] Pulse Ox 91 95 95 Oxygen Delivery Method Room Air Room Air Room Air 08/13/23 17:00 08/13/23 17:03 08/13/23 17:03 Temperature 98.9 F Temperature Source Temporal Pulse Rate 52 L 62 Pulse Rate [Lying] Pulse Rate [Sitting (for 1 minute prior to obtaining)] Pulse Rate [Standing (for 1 minute prior to obtaining)] Respiratory Rate 16 15 Respiratory Effort Respiratory Depth Respiratory Pattern Normal Blood Pressure 106/72 Blood Pressure [Lying] Blood Pressure [Sitting (for 1 minute prior to obtaining)] Blood Pressure [Standing (for 1 minute prior to obtaining)] Blood Pressure Mean 83 Blood Pressure Mean [Lying] Blood Pressure Mean [Sitting (for 1 minute prior to obtaining)] Blood Pressure Mean [Standing (for 1 minute prior to obtaining)] Pulse Ox 94 94 Oxygen Delivery Method Room Air Room Air 08/13/23 17:17 Temperature 97.6 F L Temperature Source Pulse Rate 72 Pulse Rate [Lying] Pulse Rate [Sitting (for 1 minute prior to obtaining)] Pulse Rate [Standing (for 1 minute prior to obtaining)] Respiratory Rate 19 H Respiratory Effort Respiratory Depth Respiratory Pattern Blood Pressure 135/85 H Blood Pressure [Lying] Blood Pressure [Sitting (for 1 minute prior to obtaining)] Blood Pressure [Standing (for 1 minute prior to obtaining)] Blood Pressure Mean 101 Blood Pressure Mean [Lying] Blood Pressure Mean [Sitting (for 1 minute prior to obtaining)] Blood Pressure Mean [Standing (for 1 minute prior to obtaining)] Pulse Ox 93 Oxygen Delivery Method Positive well nourished and well developed General Appearance ED: well developed HEENT Reports normocephalic, head/scalp atraumatic and moist mucous membranes Eyes PERRL and EOMs intact bilaterally Neck no lymphadenopathy, supple and no JVD Resp normal respiratory effort Auscultation: wheezes expiratory wheezes (on Right) Cardio regular rate, regular rhythm and no murmurs GI normal to inspection, nondistended, normoactive bowel sounds and non-tender Palpation: soft Back/Spine no CVA tenderness and normal ROM Extremity normal to inspection General Extremety ED: Negative for edema General Extremity: Negative for edema Neuro oriented x3 and CN's II-XII intact bilaterally Sensorium / Orientation: alert Motor Exam: strength 5/5 throughout Psych mental status grossly normal Mood & Affect: Negative for depressed or tearful Skin no rashes or lesions noted and no wounds MDM MDM MDM Narrative Medical decision making narrative: Differential diagnosis includes but not limited to intracranial hemorrhage skull fracture pneumonia COPD exacerbation pleural effusion malignancy vasovagal syncope cardiogenic syncope orthostatic hypotension dehydration anemia. My independent interpretation of the chest x-ray is no acute process. White count is normal 6.2 with a hemoglobin of 14.6. Creatinine 1.42. Troponin and BNP within normal limits. Total bilirubin 1.5. CT of the brain was obtained and read by radiology reviewed by myself is negative for intracranial hemorrhage or skull fracture. CTA of the chest shows some atelectatic like changes at the bases with possible mucous plugging. Patient received Rocephin and azithromycin to cover for possible early pneumonia at the bases. He also received breathing treatment Solu-Medrol. He is orthostatic positive when he stands which could explain why he is frequently falling getting very shaky when he exerts himself. He is not requiring supplemental oxygen but I still feel he would benefit from evaluation in the hospital. History & Record Review Discussion w/independent historian: Patient and Significant other Additional record(s) reviewed:: Prior ED visit and Prior labs Lab Data Attestation: I reviewed the patient's lab results. Labs: Laboratory Results - last 24 hr 08/13/23 13:43 WBC 6.2 RBC 4.82 Hgb 14.6 Hct 45.4 MCV 94.2 H MCH 30.3 MCHC 32.2 RDW Std Deviation 45.7 H RDW Coeff of Nick 13.4 Plt Count 150 MPV 12.0 Immature Gran % (Auto) 0.200 Neut % (Auto) 75.6 H Lymph % (Auto) 17.5 L [place] % (Auto) 5.6 Eos % (Auto) 0.8 Baso % (Auto) 0.3 Absolute Neuts (auto) 4.7 Absolute Lymphs (auto) 1.09 Nucleated RBC % 0 Sodium 137 Potassium 3.9 Chloride 102 Carbon Dioxide 31.0 Anion Gap 4 L BUN 16 Creatinine 1.42 H Estim Creat Clear Calc 56.95 Est GFR (MDRD) Af Amer 64 Est GFR (MDRD) Non-Af 53 L BUN/Creatinine Ratio 11.3 Glucose 110 H Calcium 9.5 Total Bilirubin 1.50 H Direct Bilirubin 0.36 H AST 11 L ALT 14 L Alkaline Phosphatase 96 Troponin I High Sens 18 B-Natriuretic Peptide 41.7 Total Protein 7.6 Albumin 3.8 Globulin 3.8 Radiography Diagnostic Testing: Clinical Impression(s) from Imaging Studies Chest X-Ray 08/13/23 14:46 IMPRESSION: Findings suggestive of linear bibasilar atelectasis more prominent at the left lung base. Electronically Signed: Akshat Pinto MD at 14:59 EDT , Brain CT 08/13/23 15:04 IMPRESSION: No acute intracranial abnormality. Electronically Signed: Diego Roque MD at 16:04 EDT , Chest CTA 08/13/23 15:04 IMPRESSION: No pulmonary embolus. No thoracic aortic aneurysm or dissection. Patchy airspace opacities in the lower lobes, right greater than left, with associated mucus impacted bronchi. This is likely infectious in etiology. Coronary artery disease. Fatty liver. Electronically Signed: Diego Roque MD at 16:25 EDT , EKG Initial EKG: Attestation: I personally reviewed and interpreted this EKG as follows: Comments: Normal sinus rhythm ventricular rate of 64 bpm Management Discussion w/another healthcare provider: Hospitalist (Dr. Davey) Discharge Plan Dx/Rx/DC Orders Clinical Impression: Orthostatic hypotension, Acute dyspnea, Acute exacerbation of chronic obstructive pulmonary disease, Fall Disposition Disposition: Acute Care Hospital [facility]
--- NOTE | 2023-08-13 14:46 | RAD_ITS ---
STUDY: X-RAY CHEST REASON FOR EXAM: Male, 63 years old. Dyspnea TECHNIQUE: Single AP portable view of the chest. COMPARISON: Comparison is made with prior study dated July 23, 2023. FINDINGS: EKG electrodes are seen. Increased linear markings with areas of confluence in both lower lobes worse on the left side suggestive of bibasilar atelectasis. There is no demonstrated pleural abnormality. Normal size heart. Normal mediastinum and marv. Normal visualized pulmonary arteries. Normal visualized aortic arch and descending thoracic aorta. Normal visualized thoracic spine. Normal visualized ribs, clavicles, and shoulders. There is no demonstrated abnormality of the visualized soft tissue structures of the upper abdomen. RAD/Chest 1 View (Portable) IMPRESSION: Findings suggestive of linear bibasilar atelectasis more prominent at the left lung base. Electronically Signed: Akshat Pinto MD at 14:59 EDT ,
--- NOTE | 2023-08-13 15:04 | CT_ITS ---
STUDY: CT BRAIN WITHOUT CONTRAST REASON FOR EXAM: Male, 63 years old. Injury RADIATION DOSAGE (If Supplied By Facility): CTDIvol = ( 44.99 ) mGy, DLP = ( 846.73 ) mGycm TECHNIQUE: Transaxial CT imaging of the brain was performed without administration of intravenous contrast material. Individualized dose optimization techniques were used for this CT. COMPARISON: Prior study dated: 10/09/2022 FINDINGS: PARENCHYMA: There is no acute bleed or infarct. There are normal white matter tracts. VENTRICLES: There is no hydrocephalus. MASTOID AIR CELLS AND PARANASAL SINUSES: The visualized paranasal sinuses are clear. The mastoid air cells are clear. BONES: There is no skull fracture. SOFT TISSUES: The visualized soft tissues are within normal limits. CT/Brain/Head without Contrast IMPRESSION: No acute intracranial abnormality. Electronically Signed: Diego Roque MD at 16:04 EDT ,
--- NOTE | 2023-08-13 15:04 | CT_ITS ---
STUDY: CTA CHEST WITH CONTRAST REASON FOR EXAM: Male, 63 years old. Chest pain. Evaluate for pulmonary embolus. RADIATION DOSAGE (If Supplied By Facility): CTDIvol = ( 15 ) mGy, DLP = ( 534 ) mGycm TECHNIQUE: Transaxial imaging was performed following intravenous administration of 100 ml of Isovue-370 contrast material. Coronal and sagittal reformatted images were created. 3D post processed images were created. Individualized dose optimization techniques were used for this CT. COMPARISON: Prior study dated: 09/14/2023 FINDINGS: LUNGS: There are patchy airspace opacities in the lower lobes, right greater than left, with associated mucus impacted bronchi. This is likely infectious in etiology. The upper lung lopez are clear. PLEURAL SPACE: There are no pleural effusions. There is no pneumothorax. MEDIASTINUM: The heart and pericardium are within normal limits. There are coronary artery calcifications. There is no pneumomediastinum. There is no thoracic lymphadenopathy. VESSELS There is no pulmonary embolus. The pulmonary artery is normal in caliber. There is no thoracic aortic aneurysm or dissection. UPPER ABDOMEN: The liver is low in density, consistent with fatty infiltration. BONES: There are no destructive osseous lesions. SOFT TISSUES: The visualized soft tissues are unremarkable. CT/CTA Chest W/WO Contrast IMPRESSION: No pulmonary embolus. No thoracic aortic aneurysm or dissection. Patchy airspace opacities in the lower lobes, right greater than left, with associated mucus impacted bronchi. This is likely infectious in etiology. Coronary artery disease. Fatty liver. Electronically Signed: Diego Roque MD at 16:25 EDT ,
[2023-08-13] MEDS: 0.9% Normal Saline (1000mL) 1,000 ML 999 ML IV (15:07)
[2023-08-13 15:38] LABS: AST(SGOT) 11 U/L (15-37); Alanine Aminotransfer ALT/SGPT 14 U/L (16-61); Albumin, Serum 3.8 g/dL (3.2-5.0); Alkaline Phosphatase 96 U/L (45-117); Bilirubin, Direct 0.36 mg/dL (0.00-0.30); Globulin 3.8 g/dL (2.2-4.2); Protein, Total 7.6 g/dL (6.4-8.2)
[2023-08-13 15:41] LABS: BNP,B-Type NATRIURETIC PEPTIDE 41.7 pg/mL (0-100)
[2023-08-13] MEDS: MethylPREDNISolone 125 MG/2 ML Vial IV (16:58)
[2023-08-13] MEDS: Ipratropium/Albuterol Sulfate 3 ML AMPUL.NEB INHALATION (17:01)
[2023-08-13] MEDS: Ceftriaxone 1 GM/50 ML BAG IV (17:13)
[2023-08-13] MEDS: Azithromycin 500 MG in Dextrose 5%-Water (250mL Bag) 250 ML 250 MG IV (18:05)
[2023-08-13] MEDS: 0.9% Normal Saline (1000mL) 1,000 ML 75 ML IV (19:51)
--- NOTE | 2023-08-13 19:58 | HP.PCM.HOS_ITS ---
[facility] - General General Date of Admission: 08/13/23 Date of Service: 08/13/23 Chief Complaint: Shortness of breath, dizziness, falls at home HPI Narrative FREDDIE DUMONT, is a 63 M who presents to the emergency room at [facility] with a chief complaint of shortness of breath today along with dizziness when he stands up and 2 falls at home where he did not receive any injury. Patient has a history of Parkinson's disease, COPD/asthma, and vocal cord dysfunction which was recently diagnosed. I talked at length with the patient's and the patient about this vocal cord dysfunction, they state patient was seen by Dr. Mtz (ENT) and it was revealed that he had vocal cord dysfunction and it was recommended that he go to a vocal cord specialist, he went recently approximately a month ago to [facility] and they gave the patient choices of either having a tracheostomy performed or partial vocal cord resection. Patient at this time cannot make up his mind if he wants to do anything at all. According to the , patient has been losing weight. Patient denies any fever, chills, or increased sputum production recently. Patient was found to be orthostatic hypotensive in the emergency room with blood pressure dropping to the 70s systolic when standing. Patient's pulse ox on room air at rest was noted to be above 90, he states he wears oxygen at night with his CPAP only. Imaging studies were performed in the ER, he had a chest x-ray which showed evidence of atelectasis, he also had a chest CTA which showed suspected mucous plugging-it was questionable whether the patient had infection. And CT of the brain was unremarkable. Patient's CBC was unremarkable, chemistry profile was remarkable for a creatinine of 1.42. Patient has no signs or symptoms of pneumonia, the ER physician stated that the patient had wheezing on auscultation, on my examination, I did not hear any wheezing. Patient will be admitted to [place] [address] for exacerbation of COPD, I requested COVID and respiratory panel be obtained by the emergency room physician and those tests are pending at this time. Patient will be placed on aerosol treatments and IV Solu-Medrol. Since patient states he has never been seen by speech therapy, I have elected to have speech therapy see the patient while he is hospitalized. Patient's Lasix will be stopped and I have placed him on some IV fluids, he will be seen by PT and OT. I talked to the patient about his CODE STATUS, he stated that he wanted to be a DNR CC arrest without intubation. I did talk with the patient's primary care physician, he stated that the etiology of the patient's vocal cord dysfunction is not known. [facility] Medical History (HFpEF) heart failure with preserved ejection fraction Carotid artery disease Dizziness Hypokalemia Vocal cord dysfunction Hypoxia Asthma-COPD overlap syndrome Hyperlipidemia COPD (chronic obstructive pulmonary disease) Carotid artery stenosis Osteoarthritis of right hip Angioedema Diastolic dysfunction Throat clearing Moist mucous membranes of ear, nose, and throat Cough Oral thrush Carotid artery, internal, occlusion MARYJO (obstructive sleep apnea) Smoking greater than 30 pack years Chronic diastolic (congestive) heart failure Orthostatic hypotension Fatigue Hypersomnia Parkinson's disease Mild cognitive impairment Benign localized hyperplasia of prostate with urinary obstruction and lower urinary tract symptoms Weak urinary stream Urinary frequency Urge incontinence of urine Tobacco abuse counseling Tobacco abuse Shortness of breath on exertion Snoring Postoperative hypothyroidism Observed sleep apnea Nocturia Laryngeal spasm Hypertension Hypercholesterolemia Hoarseness of voice Elevated brain natriuretic peptide (BNP) level Elevated troponin level Fungal infection Change in voice CAD (coronary artery disease) Breathing difficult Bradycardia ACS (acute coronary syndrome) Asthma History of nuclear stress test Acute deep vein thrombosis of lower extremity Abnormal CT of the chest Dyspnea Wears glasses Alcohol use Arthritis DVT (deep venous thrombosis) Gastric reflux Smoker Cricopharyngeal dysphagia Parasomnia Bilateral hearing loss Spasm of vocal cords High cholesterol Hypothyroidism Home Medications ?Medication ?Instructions ?Recorded ?Last Taken ?Type levothyroxine 150 mcg tablet 150 mcg PO DAILY thyroid 01/13/21 Unknown History (Synthroid) aspirin 81 mg chewable tablet 81 mg PO DAILY heart health 01/24/22 Unknown History (Luis Alberto Chewable Low Dose Aspirin) clopidogrel 75 mg tablet 75 mg PO DAILY anit platelet 01/24/22 Unknown History ezetimibe 10 mg tablet 10 mg PO DAILY as prescribed 01/24/22 Unknown History metoprolol succinate 25 mg 12.5 mg PO DAILY bp 01/24/22 Unknown History tablet,extended release 24 hr rosuvastatin 5 mg tablet 5 mg PO DAILY cholesterol 01/24/22 Unknown History tamsulosin 0.4 mg capsule 0.4 mg PO BID prostate 05/17/22 Unknown History furosemide 40 mg tablet (Lasix) 40 mg PO DAILY diuretic 06/04/22 Unknown History Handicap placard #1 ea 10/01/22 Unknown Rx carbidopa 25 mg-levodopa 100 mg 2 tab PO TID parkinsons #540 tabs 01/31/23 Unknown Rx tablet ipratropium 0.5 mg-albuterol 3 mg 3 ml inhalation Q4H PRN PRN SOB 05/17/23 Unknown Rx (2.5 mg base)/3 mL nebulization &/OR WHEEZING #180 mL soln albuterol sulfate 90 mcg/actuation 2 puff inhalation Q8H PRN 06/10/23 Unknown History aerosol inhaler shortness of breath or wheezing budesonide-formoterol HFA 160 2 inh inhalation BID as directed 06/14/23 Unknown Rx mcg-4.5 mcg/actuation aerosol #1 ea inhaler (Symbicort) omeprazole 40 mg capsule,delayed 40 mg PO DAILY gerd 06/18/23 Unknown History release tizanidine 2 mg tablet 2 mg PO Q6H PRN muscle spasticity 06/21/23 Unknown History budesonide 160 mcg-glycopyr 9 2 inh inhalation BID #10.7 grams 07/09/23 Unknown Rx mcg-formot 4.8 mcg/actuation HFA inhaler (Breztri Aerosphere) potassium chloride 20 mEq 20 meq PO DAILY #90 tabs 07/10/23 Unknown Rx tablet,extended release azithromycin 500 mg tablet 500 mg PO DAILY 5 days #5 tabs 07/23/23 Unknown Rx prednisone 50 mg tablet 50 mg PO DAILY #5 tabs 07/23/23 Unknown Rx Allergy/AdvReac Type Severity Reaction Status Date / Time vibegron (From Gem[facility]a) Allergy Severe Rash Verified 07/09/23 11:26 Family History Father COPD (chronic obstructive pulmonary disease) Emphysema lung Myocardial infarction Mother Parkinsons disease Malignant melanoma Surgical History 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 artery (~06/06/21) H/O cardiac catheterization (~06/06/21) Hx of arthroscopy of knee H/O knee surgery H/O thyroidectomy Social History Smoking Status: Former smoker Tobacco: How many years used: 45 second hand exposure: Yes alcohol intake: former substance use type: does not use caffeine: Yes (daily) Type: coffee Number of servings: 2 what type of physical activity do you participate in: walking seatbelt use: sometimes ROS Constitutional Constitutional: Reports other Details: Weight loss over the last several months ; Denies anorexia, change in weight, fever(s), night sweats or weakness Eyes Eyes: Denies blurry vision, change in vision, discharge from eye(s) or eye pain ENT HEENT: Denies dysphagia Cardiovascular Cardiovascular: Reports dyspnea on exertion; Denies chest pain, claudication, edema or palpitations Respiratory/Chest Respiratory/Chest: Reports shortness of breath at rest and shortness of breath with exertion; Denies cough or hemoptysis Gastrointestinal Gastrointestinal: Denies abdominal pain, constipation, diarrhea, hematemesis, hematochezia, melena, nausea or vomiting Genitourinary Genitourinary: Denies dysuria, hematuria, urinary frequency, urinary hesitancy, urinary incontinence or urinary urgency Musculoskeletal Musculoskeletal: Denies back pain, joint pain, joint stiffness, joint swelling, myalgias or neck pain Neurologic Neurologic: Denies abnormal gait, abnormal speech, dizziness, focal weakness, headache(s), loss of vision, numbness, other visual disturbances, paresthesias, syncope or tingling Psychiatric Psychiatric: Denies anxiety, cognitive impairment, depression, irritability, mood swings or suicidal ideation Endocrine Endocrinology: Denies change in body appearance, cold intolerance, excessive sweating, heat intolerance, polydipsia or polyuria Hematologic/Lymphatic Hematologic/Lymphatic: Denies none, anemia, easy bleeding, easy bruising or lymphadenopathy Allergic/Immunologic Allergic/Immunologic: Denies rhinitis, urticaria, eczemia or asthma Vital Signs Vital Signs Vital Signs: 08/13/23 12:43 08/13/23 12:45 08/13/23 12:50 Temperature 98.3 F 97.7 F L Temperature Source Temporal Temporal Pulse Rate 70 67 Pulse Rate [Lying] Pulse Rate [Sitting (for 1 minute prior to obtaining)] Pulse Rate [Standing (for 1 minute prior to obtaining)] Respiratory Rate 16 17 Respiratory Effort Short of Breath Respiratory Depth Normal Respiratory Pattern Blood Pressure 118/82 H 120/79 Blood Pressure [Lying] Blood Pressure [Sitting (for 1 minute prior to obtaining)] Blood Pressure [Standing (for 1 minute prior to obtaining)] Blood Pressure Mean 94 92 Blood Pressure Mean [Lying] Blood Pressure Mean [Sitting (for 1 minute prior to obtaining)] Blood Pressure Mean [Standing (for 1 minute prior to obtaining)] Blood Pressure Source Blood Pressure Position Blood Pressure Location Pulse Ox 97 92 Oxygen Delivery Method Room Air Room Air Room Air 08/13/23 13:45 08/13/23 13:45 08/13/23 13:45 Temperature 98 F Temperature Source Temporal Pulse Rate 61 Pulse Rate [Lying] Pulse Rate [Sitting (for 1 minute prior to obtaining)] Pulse Rate [Standing (for 1 minute prior to obtaining)] Respiratory Rate 18 18 Respiratory Effort Respiratory Depth Respiratory Pattern Blood Pressure 95/68 Blood Pressure [Lying] Blood Pressure [Sitting (for 1 minute prior to obtaining)] Blood Pressure [Standing (for 1 minute prior to obtaining)] Blood Pressure Mean 77 Blood Pressure Mean [Lying] Blood Pressure Mean [Sitting (for 1 minute prior to obtaining)] Blood Pressure Mean [Standing (for 1 minute prior to obtaining)] Blood Pressure Source Blood Pressure Position Blood Pressure Location Pulse Ox 92 95 Oxygen Delivery Method Room Air Room Air Room Air 08/13/23 14:00 08/13/23 14:43 08/13/23 14:49 Temperature 97.3 F L Temperature Source Temporal Pulse Rate 59 L 89 Pulse Rate [Lying] 54 L Pulse Rate [Sitting (for 1 minute prior to obtaining)] 58 L Pulse Rate [Standing (for 1 minute prior to obtaining)] 73 Respiratory Rate 16 16 Respiratory Effort Respiratory Depth Respiratory Pattern Blood Pressure 93/67 134/66 H Blood Pressure [Lying] 118/75 Blood Pressure [Sitting (for 1 minute prior to obtaining)] 96/67 Blood Pressure [Standing (for 1 minute prior to obtaining)] 73/52 L Blood Pressure Mean 75 88 Blood Pressure Mean [Lying] 89 Blood Pressure Mean [Sitting (for 1 minute prior to obtaining)] 76 Blood Pressure Mean [Standing (for 1 minute prior to obtaining)] 59 Blood Pressure Source Blood Pressure Position Blood Pressure Location Pulse Ox 91 94 Oxygen Delivery Method Room Air Room Air 08/13/23 15:00 08/13/23 16:00 08/13/23 16:00 Temperature 97.6 F L 97.3 F L 97.3 F L Temperature Source Temporal Temporal Temporal Pulse Rate 54 L 51 L 53 L Pulse Rate [Lying] Pulse Rate [Sitting (for 1 minute prior to obtaining)] Pulse Rate [Standing (for 1 minute prior to obtaining)] Respiratory Rate 20 H 17 17 Respiratory Effort Respiratory Depth Respiratory Pattern Blood Pressure 117/81 H 139/89 H 139/89 H Blood Pressure [Lying] Blood Pressure [Sitting (for 1 minute prior to obtaining)] Blood Pressure [Standing (for 1 minute prior to obtaining)] Blood Pressure Mean 93 105 105 Blood Pressure Mean [Lying] Blood Pressure Mean [Sitting (for 1 minute prior to obtaining)] Blood Pressure Mean [Standing (for 1 minute prior to obtaining)] Blood Pressure Source Blood Pressure Position Blood Pressure Location Pulse Ox 91 95 95 Oxygen Delivery Method Room Air Room Air Room Air 08/13/23 17:00 08/13/23 17:03 08/13/23 17:03 Temperature 98.9 F Temperature Source Temporal Pulse Rate 52 L 62 Pulse Rate [Lying] Pulse Rate [Sitting (for 1 minute prior to obtaining)] Pulse Rate [Standing (for 1 minute prior to obtaining)] Respiratory Rate 16 15 Respiratory Effort Respiratory Depth Respiratory Pattern Normal Blood Pressure 106/72 Blood Pressure [Lying] Blood Pressure [Sitting (for 1 minute prior to obtaining)] Blood Pressure [Standing (for 1 minute prior to obtaining)] Blood Pressure Mean 83 Blood Pressure Mean [Lying] Blood Pressure Mean [Sitting (for 1 minute prior to obtaining)] Blood Pressure Mean [Standing (for 1 minute prior to obtaining)] Blood Pressure Source Blood Pressure Position Blood Pressure Location Pulse Ox 94 94 Oxygen Delivery Method Room Air Room Air 08/13/23 17:17 08/13/23 18:00 08/13/23 18:00 Temperature 97.6 F L 97.7 F L Temperature Source Temporal Pulse Rate 72 59 L 57 L Pulse Rate [Lying] Pulse Rate [Sitting (for 1 minute prior to obtaining)] Pulse Rate [Standing (for 1 minute prior to obtaining)] Respiratory Rate 19 H 20 H 18 Respiratory Effort Respiratory Depth Respiratory Pattern Blood Pressure 135/85 H 144/80 H 144/80 H Blood Pressure [Lying] Blood Pressure [Sitting (for 1 minute prior to obtaining)] Blood Pressure [Standing (for 1 minute prior to obtaining)] Blood Pressure Mean 101 101 101 Blood Pressure Mean [Lying] Blood Pressure Mean [Sitting (for 1 minute prior to obtaining)] Blood Pressure Mean [Standing (for 1 minute prior to obtaining)] Blood Pressure Source Blood Pressure Position Blood Pressure Location Pulse Ox 93 92 92 Oxygen Delivery Method Room Air Room Air 08/13/23 19:02 Temperature 98.7 F Temperature Source Oral Pulse Rate 63 Pulse Rate [Lying] Pulse Rate [Sitting (for 1 minute prior to obtaining)] Pulse Rate [Standing (for 1 minute prior to obtaining)] Respiratory Rate 18 Respiratory Effort Respiratory Depth Respiratory Pattern Blood Pressure 108/80 Blood Pressure [Lying] Blood Pressure [Sitting (for 1 minute prior to obtaining)] Blood Pressure [Standing (for 1 minute prior to obtaining)] Blood Pressure Mean 89 Blood Pressure Mean [Lying] Blood Pressure Mean [Sitting (for 1 minute prior to obtaining)] Blood Pressure Mean [Standing (for 1 minute prior to obtaining)] Blood Pressure Source Monitor Blood Pressure Position Sitting Blood Pressure Location Right Arm Pulse Ox 93 Oxygen Delivery Method Room Air Weight Weight: 88.025 kg Body Mass Index (BMI) 28.6 Physical Exam Const alert, oriented x3 and no apparent distress Constitutional Narrative: Patient does not appear in respiratory distress General Appearance: cooperative, well kempt and well developed Orientation / Consciousness: awake, oriented to person, oriented to place and oriented to time HEENT normocephalic, head/scalp atraumatic and moist oral mucous membranes Eyes PERRL, EOMs intact bilaterally and conjunctivae normal Neck supple, no JVD, thyroid normal and no carotid bruits General: trachea midline Resp normal respiratory effort, no retractions and no use of accessory muscles Resp Narrative: Breath sounds were diminished bilaterally, I did not appreciate any rales rhonchi or wheezes. Auscultation: Negative for rales, rhonchi or wheezes Cardio regular rate, regular rhythm, S1 normal heart sound, S2 normal heart sound, no murmurs, no rub and no gallops GI normal to inspection, nondistended, normoactive bowel sounds, soft to palpation, non-tender and non-distended Extremity no clubbing, cyanosis or edema Skin no rashes or lesions noted General Skin Exam: no breakdown Neuro oriented x3, CN's II-XII intact bilaterally, moves all extremities, no focal motor deficits and no sensory deficits noted Sensorium / Orientation: awake and alert Speech: speech normal Psych affect normal Results Lab / Micro Data 08/13/23 13:43 08/13/23 13:43 Labs: Laboratory Results - last 24 hr 08/13/23 13:43: WBC 6.2, RBC 4.82, Hgb 14.6, Hct 45.4, MCV 94.2 H, MCH 30.3, MCHC 32.2, RDW Std Deviation 45.7 H, RDW Coeff of Nick 13.4, Plt Count 150, MPV 12.0, Immature Gran % (Auto) 0.200, Neut % (Auto) 75.6 H, Lymph % (Auto) 17.5 L, Jay % (Auto) 5.6, Eos % (Auto) 0.8, Baso % (Auto) 0.3, Absolute Neuts (auto) 4.7, Absolute Lymphs (auto) 1.09, Nucleated RBC % 0, Sodium 137, Potassium 3.9, Chloride 102, Carbon Dioxide 31.0, Anion Gap 4 L, BUN 16, Creatinine 1.42 H, Estim Creat Clear Calc 56.95, Est GFR (MDRD) Af Amer 64, Est GFR (MDRD) Non-Af 53 L, BUN/Creatinine Ratio 11.3, Glucose 110 H, Calcium 9.5, Total Bilirubin 1.50 H, Direct Bilirubin 0.36 H, AST 11 L, ALT 14 L, Alkaline Phosphatase 96, Troponin I High Sens 18, B-Natriuretic Peptide 41.7, Total Protein 7.6, Albumin 3.8, Globulin 3.8 Micro: Microbiology 08/13/23 17:07 Nasal Secretion SARS-CoV-2 Antigen (Rapid) - Final Imaging Radiology Impression Chest X-Ray 08/13/23 14:46 IMPRESSION: Findings suggestive of linear bibasilar atelectasis more prominent at the left lung base. Electronically Signed: Akshat Pinto MD at 14:59 EDT , Brain CT 08/13/23 15:04 IMPRESSION: No acute intracranial abnormality. Electronically Signed: Diego Roque MD at 16:04 EDT , Chest CTA 08/13/23 15:04 IMPRESSION: No pulmonary embolus. No thoracic aortic aneurysm or dissection. Patchy airspace opacities in the lower lobes, right greater than left, with associated mucus impacted bronchi. This is likely infectious in etiology. Coronary artery disease. Fatty liver. Electronically Signed: Diego Roque MD at 16:25 EDT , Assessment & Plan Assessment/Plan (1) Acute exacerbation of chronic obstructive pulmonary disease: PLAN: Plan 1. Acute exacerbation of COPD-patient will be admitted to [place] [address], he was placed on aerosol treatments and IV Solu-Medrol, pulse ox will be monitored and oxygen will be administered as needed. #2 orthostatic hypotension-possibly secondary to either Parkinson's disease or volume depletion-I have elected to stop the patient's Lasix, I gave the patient IV fluids at a lower rate. #3 acute debility-patient will be seen by PT and OT #4 chronic vocal cord dysfunction-patient will be seen by speech therapy to see if he needs any dietary changes. #5 history of heart failure with preserved ejection fraction-I do not believe the patient is currently in acute CHF #6 essential hypertension-patient will remain on his current medications except for Lasix #7 obstructive sleep apnea-patient is on CPAP at night at 12 cm with 2 L of oxygen. This was ordered. #8 Parkinson's disease-patient will remain on his present medications, again patient will be seen by speech therapy #9 coronary artery disease-this appears stable at this time, complicates care, management, recovery, and prognosis Total clinical time spent by myself addressing the patient's medical issues, reviewing all of his data, and collaborating with patient's care team: 75 minutes Charges/Coding Visit Charges Inpatient E&M: 89186 Init Hosp L3
[2023-08-13] MEDS: Heparin Injection (Vial) 5,000 UNIT/ML VIAL 5000 UNIT SC (21:36)
[2023-08-13] MEDS: guaiFENesin 1,200 MG Tablet 1200 MG PO (21:36)
[2023-08-13] MEDS: Tamsulosin HCl 0.4 MG Capsule PO (21:36)
[2023-08-14] VITALS (18 sets, daily range): BP systolic 99–183; BP diastolic 60–97; PULSE 43–96; RESP 14–20; TEMP 36.1–37; O2SAT 89–97
[2023-08-14] MEDS: 0.9% Saline Lock 10 ML Syringe IV (04:31)
[2023-08-14] MEDS: hydrALAZINE 20 MG/ML Vial 10 MG IV (04:31)
[2023-08-14] MEDS: Levothyroxine 150 MCG Tablet PO (06:45)
[2023-08-14] MEDS: Carbidopa/Levodopa 25/100 Tablet PO ×3 (06:45→16:08)
[2023-08-14] MEDS: Ipratropium/Albuterol Sulfate 3 ML AMPUL.NEB INHALATION ×3 (06:54→19:24)
[2023-08-14] MEDS: Aspirin 81 MG TAB.CHEW PO (07:34)
[2023-08-14] MEDS: Albuterol 2.5 MG/3 ML VIAL.NEB. INHALATION (07:44)
--- NOTE | 2023-08-14 07:48 | CPS ---
patient recieved prn albuterol due to upper airway wheezes.
[2023-08-14 09:12] LABS: Anion Gap 4 (5-15); BUN 15 mg/dL (7-18); BUN/Creat Ratio 14.3 RATIO (10-20); Calcium,Total 9.5 mg/dL (8.5-10.1); Chloride 106 mmol/L (98-107); Creatinine, Serum 1.05 mg/dL (0.70-1.30); EST Glomerular Filtration Rate 75 mL/min (>60); Est Glom Filt Rate - Afr Amer 91 mL/min (>60); Estimated Creatinine Clearance 77.01 ml/min; Glucose 131 mg/dL (74-106); Potassium 3.6 mmol/L (3.5-5.1); Sodium Level 139 mmol/L (136-145)
[2023-08-14] MEDS: Tamsulosin HCl 0.4 MG Capsule PO ×2 (09:50→21:51)
[2023-08-14] MEDS: guaiFENesin 1,200 MG Tablet 1200 MG PO ×2 (09:50→21:52)
[2023-08-14] MEDS: Metoprolol(XL)Succ 25 MG Tablet 12.5 MG PO (09:50)
[2023-08-14] MEDS: Heparin Injection (Vial) 5,000 UNIT/ML VIAL 5000 UNIT SC ×2 (09:50→21:51)
[2023-08-14] MEDS: Ezetimibe 10 MG Tablet PO (09:50)
[2023-08-14] MEDS: Atorvastatin Calcium 10 MG Tablet PO (09:50)
[2023-08-14] MEDS: Clopidogrel Bisulfate 75 MG Tablet PO (09:51)
[2023-08-14] MEDS: Pantoprazole Sodium 40 MG Tablet PO (09:51)
--- NOTE | 2023-08-14 11:26 | PCM.PN.HOSP ---
Reason for Visit Reason for Visit: Diagnoses Chronic obstructive pulmonary disease with (acute) exacerbation (08/13/23) Subjective Subjective No acute events overnight. Saw patient at bedside this morning, present. Patient sitting up in bedside chair, conversing normally, in no acute distress. Patient was breathing comfortably on low-flow nasal cannula. Patient was admitted yesterday for worsening dyspnea and dizziness/lightheadedness. He was found to be orthostatic positive in the ED. He was given IV fluids overnight and this morning and states that he walked around the floor with physical therapy this morning and did not have any lightheadedness or dizziness. Importantly, patient was diagnosed with vocal cord dysfunction recently and saw an ENT specialist at [facility] within the past few weeks. He was told that he would likely need either surgery for vocal cord removal or tracheostomy in the near future. Patient was started on IV steroids on admission, states they have not seem to help his breathing much. He notably did have a few audible wheezes during our encounter. Patient notes that he has also had some difficulty with swallowing and has lost about 20 to 25 pounds over the past several months. Plan was for speech therapy to see him later in the morning. Patient notably has history of Parkinson's disease that was diagnosed about 2 years ago as well. States his symptoms have been well-controlled on Sinemet 3 times per day. Patient denies any other new concerns this morning. Objective Data Objective Data Vital Signs: Vital Signs Temp Pulse Resp BP Pulse Ox O2 Del Method O2 Flow Rate 98.3 F 96 18 120/80 91 Nasal Cannula 2 08/14/23 08:15 08/14/23 09:50 08/14/23 08:15 08/14/23 08:15 08/14/23 09:33 08/14/23 08:35 08/14/23 09:33 FiO2 30 08/14/23 02:17 Oxygen Flow Rate (L/min) 2 Oxygen Delivery Method Nasal Cannula Weight: 88.025 kg Body Mass Index (BMI) 28.6 Intake & Output: Intake and Output for Last 24 Hours 08/12/23 08/13/23 08/14/23 23:59 23:59 23:59 Intake Total 1305 / 1545 1592.5 / 1592.5 Output Total 1974 Balance 1305 / 1045 -382.5 / -382.5 Lab / Micro Data 08/13/23 13:43 08/14/23 08:11 Labs: Laboratory Results - last 24 hr 08/13/23 13:43: WBC 6.2, RBC 4.82, Hgb 14.6, Hct 45.4, MCV 94.2 H, MCH 30.3, MCHC 32.2, RDW Std Deviation 45.7 H, RDW Coeff of Nick 13.4, Plt Count 150, MPV 12.0, Immature Gran % (Auto) 0.200, Neut % (Auto) 75.6 H, Lymph % (Auto) 17.5 L, Laurel % (Auto) 5.6, Eos % (Auto) 0.8, Baso % (Auto) 0.3, Absolute Neuts (auto) 4.7, Absolute Lymphs (auto) 1.09, Nucleated RBC % 0, Sodium 137, Potassium 3.9, Chloride 102, Carbon Dioxide 31.0, Anion Gap 4 L, BUN 16, Creatinine 1.42 H, Estim Creat Clear Calc 56.95, Est GFR (MDRD) Af Amer 64, Est GFR (MDRD) Non-Af 53 L, BUN/Creatinine Ratio 11.3, Glucose 110 H, Calcium 9.5, Total Bilirubin 1.50 H, Direct Bilirubin 0.36 H, AST 11 L, ALT 14 L, Alkaline Phosphatase 96, Troponin I High Sens 18, B-Natriuretic Peptide 41.7, Total Protein 7.6, Albumin 3.8, Globulin 3.8 08/14/23 08:11: Sodium 139, Potassium 3.6, Chloride 106, Carbon Dioxide 29.0, Anion Gap 4 L, BUN 15, Creatinine 1.05, Estim Creat Clear Calc 77.01, Est GFR (MDRD) Af Amer 91, Est GFR (MDRD) Non-Af 75, BUN/Creatinine Ratio 14.3, Glucose 131 H, Calcium 9.5 Micro: Microbiology 08/13/23 17:07 Mucosa - Nasopharyngeal Respiratory Panel (PCR) - Final 08/13/23 17:07 Nasal Secretion SARS-CoV-2 Antigen (Rapid) - Final Radiography Diagnostic Testing: Radiology Impression Chest X-Ray 08/13/23 14:46 IMPRESSION: Findings suggestive of linear bibasilar atelectasis more prominent at the left lung base. Electronically Signed: Akshat Pinto MD at 14:59 EDT , Brain CT 08/13/23 15:04 IMPRESSION: No acute intracranial abnormality. Electronically Signed: Diego Roque MD at 16:04 EDT , Chest CTA 08/13/23 15:04 IMPRESSION: No pulmonary embolus. No thoracic aortic aneurysm or dissection. Patchy airspace opacities in the lower lobes, right greater than left, with associated mucus impacted bronchi. This is likely infectious in etiology. Coronary artery disease. Fatty liver. Electronically Signed: Diego Roque MD at 16:25 EDT , Physical Exam Const alert, oriented x3 and no apparent distress Constitutional Narrative: Pleasant elderly male, overweight, sitting up comfortably in bed, conversing normally, in no acute distress. General Appearance: cooperative and comfortable HEENT normocephalic, head/scalp atraumatic, hearing grossly normal bilaterally and nasal mucous membranes and turbinates normal Eyes PERRL, EOMs intact bilaterally and conjunctivae normal Neck full ROM Chest inspection of chest normal Resp normal respiratory effort and no use of accessory muscles Resp Narrative: Moderate wheezing noted in bilateral upper airways and up near the neck, seemingly consistent with vocal cord dysfunction. Otherwise good air movement bilaterally throughout, no crackles noted. Cardio regular rate, regular rhythm, no murmurs and peripheral pulses 2+ throughout GI normal to inspection, nondistended, normoactive bowel sounds, soft to palpation, non-tender and non-distended Back/Spine normal ROM Extremity normal to inspection, full ROM and no pedal edema Skin no rashes or lesions noted Neuro no focal motor deficits and no sensory deficits noted Speech: speech normal Psych mental status grossly normal Assessment & Plan Assessment/Plan (1) Vocal cord dysfunction: (2) Orthostatic hypotension: (3) Dysphagia: PLAN: Plan Patient is a 63-year-old male who presented [facility] ED on 08/13/2023 with worsening dyspnea and dizziness/lightheadedness. 1. Dyspnea suspected secondary to vocal cord dysfunction; history of asthma?COPD overlap syndrome ? Had concern for possible asthma/COPD exacerbation on admit given reported worsening shortness of breath and wheezing noted on exam. Started on IV steroids on admit but patient did showed minimal improvement, so strongly suspect dyspnea is secondary to known worsening vocal cord dysfunction. Can continue IV steroids at decreased dosing and scheduled DuoNebs for now, likely okay to de-escalate in the next few days. Patient will need close outpatient follow-up with [facility] ENT on discharge. 2. Dysphagia ? Speech therapy following. Patient reported 20 to 25 pound weight loss over the past several months due to increased difficulty with swallowing both liquids and solids. Bedside speech therapy evaluation on 08/13 with some dysphagia noted, recommendation was for MBSS on afternoon of 08/13. Follow-up results of MBSS. Speech therapy also recommended GI evaluation for possible EGD, GI consult placed. 3. Orthostatic hypotension, improving ? Presented with dizziness and lightheadedness with ambulation, orthostatics positive in the ED. Given IV fluids on admission and patient with much improvement in dizziness on hospital day 2, was able to walk around the floor with assistance without any symptoms. Suspected orthostatic positive due to hypovolemia but Parkinson's disease noted below could also be playing a role. Can recheck orthostatic vitals as needed. 4. Mild acute on chronic debility ? PT/OT/case management following. Patient did well with therapy on hospital day 2, will be okay for discharge home with outpatient physical therapy as needed. 5. Parkinson's disease ? Follows with outpatient neurology. Diagnosed about 2 years ago. Onset about 3 times daily and reports good control of symptoms. Continue home Sinemet. 6. History of GERD with esophagitis ? S/p EGD and colonoscopy done with Dr. Beauchamp in February 2023. Patient presented at that time with worsening diarrhea. EGD showed nonsevere acute esophagitis with no bleeding. Colonoscopy showed mild inflammation in the ileum secondary to ileitis. Patient now with worsening dysphagia as noted above, GI consulted for consideration of repeat EGD. Continue home PPI. Chronic medical conditions: ? History of CAD s/p stenting, hypertension, hyperlipidemia, carotid artery stenosis, history of HFpEF: Stable, not in acute exacerbation of heart failure. Continue home Toprol, Lasix, statin, Zetia, aspirin, and Plavix. ? MARYJO: Continue home nocturnal CPAP. ? Hypothyroidism: Continue home Synthroid. ? BPH with obstructive symptoms: Continue home tamsulosin. DVT prophylaxis: Lovenox CODE STATUS: DNR CCA, DNI Expected disposition: Home, 1 to 2 days Total clinical time spent by myself addressing the patient's medical issues, reviewing all the data, and collaborating with patient's care team: 35 minutes. Charges/Coding Visit Charges Inpatient E&M: 68544 Subs Hosp L2
--- NOTE | 2023-08-14 12:15 | CASEMGMT ---
RN LEEROY Assessment Face to Face with patient for initial transition planning/care coordination assessment. RN CM introduced self and role at [facility], pt voices understanding. Pt is A&Ox4 and is resting comfortably in the chair and is calm. Care providers, pharmacy, and demographics verified. Admitting dx: Exacerbation of COPD, Orthostatic Hypotension PCP: Cisco Dozier Specialists: RENEE, [facility], David (Neuro) Preferred Pharmacy: [facility] Insurance: [employer] A/B, [place] Prescription Benefit: Yes LNOK: Luz Cole (W) Living Arrangements: pt lives with his in a two story home with a FFSU and 2 steps to enter ADLs/IADLs: States ind Transportation: Self, DME: Home O2 through [employer]. Verified 2L continuous and 2L bleed into CPAP @ HS. Pt states that he has a pulse ox, POC, O2 concentrator, and portable tanks. Pt states that he does not have his equipment with him currently. Pt also has a nebulizer and cane. Pt educated that the pt may need to have someone bring in a portable tank for time of DC. HHC/SNF: Denies HHC or SNF history or needs. Pt states that he has a Palliative care appt tomorrow that his set up. This RN CM coordinated with [facility] and Brianna Maradiaga states that the pt actually has a Hospice appt tomorrow at noon. Brianna states that they will f/u with the pt spouse to decipher where and when they would like to meet for the appt. Pt?s goal: Home Plan: 6-Click is 23. Pt was cleared by PT. Pt denies the need for HHC or OP therapy. Pt states that he feels safe discharging home once he is medically ready with his Hospice/ Palliative care referral. Brianna states that they will contact the pt/ pt spouse in regard to where and when to meet for initial appt. CM to follow. Ashley Scott RN, CM
--- NOTE | 2023-08-14 13:47 | CASEMGMT ---
Received notification from [facility] that pt has a hospice consult scheduled tomorrow at noon. Pt had reported it was Palliative Care. JAZIEL UMAÑA into pt room to discuss with pt. He states it was his understanding that Palliative Care was going to see him not hospice but he wanted RN LEEROY to speak to his . TC to pt while in the room, she states that her sister in law actually set up the appt and it was her understanding to be palliative. Discussed with and pt hospice vs palliative care. Pt and would like palliative care. Updated hospitalist. Pt screened using [facility] Palliative screening tool, pt met criteria. Order for palliative received. Email to palliative to make aware.
--- NOTE | 2023-08-14 13:52 | SP.MBSS_ITS ---
Modified Barium Swallow Patient Information Study Date: 08/14/23 Study Time: 13:00 Direct Billable Minutes: 110 Total Minutes procedure & reportin Diagnosis: Parkinson's disease (G20), COPD (J44.9) Referring Physician: Flex Hsieh Reason for Referral: Objectively assess swallow function, assess risk for aspiration, and determine recommendations for least restrictive diet textures and compensatory strategies to improve safety of swallow. Medical History: PMH: HFpEF, CAD, Hypokalemia, Vocal cord dysfunction, Hypoxia, Asthma-COPD overlap syndrome, HLD, COPD, Angioedema, Diastolic dysfunction, Throat clearing, Moist mucous membranes of ear, nose, and throat, Cough, Oral thrush, MARYJO, Smoking greater than 30 pack years, CHF, Orthostatic hypotension, Fatigue, Hypersomnia, PD, MCI, Tobacco abuse, Shortness of breath on exertion, Laryngeal spasm, HTN, Hypercholesterolemia, Hoarseness of voice, Breathing difficult, Bradycardia, ACS, Asthma, Dyspnea, Alcohol use, DVT, Gastric reflux, Smoker, Cricopharyngeal dysphagia, Spasm of vocal cords, High cholesterol, Hypothyroidism. Pt has extensive PMH including Parkinson's disease, COPD/asthma, laryngeal spasm, cricopharyngeal dysphagia, and vocal cord dysfunction, who presented to [facility] ED 08/13/23 with SOB, dizziness when standing up, 2 falls at home. Ho spitalist spoke with patient and his about vocal cord dysfunction upon admission, and they stated he was seen by Dr. Mtz (ENT) and it was revealed that he had vocal cord dysfunction and it was recommended that he go to a vocal cord specialist, he went recently approximately a month ago to [facility] and they gave the patient choices of either having a tracheostomy performed or partial vocal cord resection. Patient at this time cannot make up his mind if he wants to do anything at all. According to the , patient has been losing weight. According to PCP, etiology of the patient's vocal cord dysfunction is not known. In ED, he was found to be orthostatic hypotensive. Imaging studies were performed in the ER, he had a chest x-ray which showed evidence of atelectasis, he also had a chest CTA which showed suspected mucous plugging-it was questionable whether the patient had infection. And CT of the brain was unremarkable. Pt admitted to [facility] for exacerbation of COPD. He was recommended for BSE due to history of dysphagia and laryngeal spasm. Prior to oral intake trials, he demonstrated some stridor; however, he had increased noisy breathing immediately following trials concerning for stridor. RN alerted and asked to attend MBSS. MBSS 08/30/20 revealed mild oropharyngeal dysphagia with recommendations for Regular textures / Thin liquids with strategies to decrease risk for aspiration: Thorough mastication, Small Bites, Small Sips, No Straws, Slow Rate, Sitting upright, Remain sitting upright for 30 minutes after PO intake. He was recommended for GI consult due to mild retrograde flow of bolus and mild esophageal retention, as well as address concern for cricopharyngeal bar noted in impressions., ENT Consult. He followed with GI and had EGD 11/23/20, which revealed non-severe esophagitis. Of note, he coded during the procedure due to a closure of his airway. Successfully treated with supplemental oxygen, albuterol and steroids. Returned home with PO and inhalation steroids. Recommendation from GI follow up included genetic counseling referral, as well as core driller and ENT referrals. EGD repeated 03/18/23 revealing non-severe acute esophagitis with no bleeding and erythematous duodenopathy - Biopsied. Penetration-Aspiration Scale Penetration-Aspiration Scale: OBJECTIVE ASSESSMENT OF SWALLOW FUNCTION (QUANTITATIVE ? PER TRIAL): PENETRATION / ASPIRATION SCALE (GROSS): 1 = does not enter airway 2 = enters airway/above vocal folds/ejected 3 = enters airway/above vocal folds/not ejected 4 = enters airway/contacts vocal folds/ejected 5 = enters airway/contacts vocal folds/not ejected 6 = enters airway/below vocal folds/ejected 7 = enters airway/below vocal folds/not ejected despite effort 8 = enters airway/below vocal folds/no effort VIDEOFLOROSCOPIC SCALE SCORE (GROSS): Grade I = aspiration of material that has penetrated into the laryngeal vestibule, intact cough reflex Grade II = aspiration < 10 % of the bolus, intact cough reflex Grade III = aspiration of < 10 % of the bolus, reduced cough reflex or aspiration of > 10 % of the bolus, intact cough reflex Grade IV = aspiration of > 10 % of the bolus, reduced cough reflex Penetration-Aspiration Scale Score Thin Liquid via teaspoon: Result: 1= does not enter airway Thin Liquid via teaspoon Trial 2: Result: 1= does not enter airway Thin Liquid via small single sip: cup: Result: 1= does not enter airway Thin Liquid via sequential sips: cup: Result: 1= does not enter airway [place] Thick Liquid via small single sip: cup: Result: 1= does not enter airway Pudding via teaspoon: Result: 1= does not enter airway 1/2 Cookie: Result: 1= does not enter airway Thin Liquid via sequential sips:straw: Result: 1= does not enter airway Oral Phase Labial Seal: Interlabial escape, no progression to anterior lip Tongue Control During Bolus Hold: Posterior escape of less than half of bolus Bolus Preparation/Mastication: Timely and efficient chewing and mashing Bolus Transport/Lingual Motion: Delayed initiation of tongue motion (sequential cup) Oral Residue: Residue collection on oral structures (piecemeal pudding) Pharyngeal Phase Initiation of Pharyngeal Swallow: Bolus head in pyriforms Soft Palate Elevation: No bolus between soft palate and pharyngeal wall Laryngeal Elevation: Comp. Superior move thyroid cart w/comp. apprx arytenoid cart-epig pet Anterior Hyoid Excursion: Partial anterior movement Epiglottic Movement: Complete inversion Laryngeal Vestibule Closure at Height of Swallow: Complete; no air/contrast in laryngeal vestibule Pharyngeal Stripping Wave: Present - complete Pharyngoesophageal Segment Opening: Parital distension and partial duration; parital obstruction of flow Tongue Base Retraction: Narrow column of contrast between tongue base & post. pharyngeal wall Pharyngeal Residue: Trace residue within or on pharyngeal structures Esophageal Phase Esophageal Clearance: Esophageal retention w/ retrograde flow through pharyngoesophageal seg (trace retention of all consistencies in the UES during the assessment with trace retrograde flow through the UES to the pyriforms with sequential thin via straw) Diagnosis/Impression Diagnosis: Mild pharyngeal dysphagia R13.13 Impression: The pharyngeal phase is primarily marked by... -Delayed initiation of the pharyngeal phase of the swallow most notable with sequential sips of thin liquids. -Mildly decreased tongue base retraction and UES opening/duration; however, only trace pharyngeal residues after the swallow. The esophageal phase is primarily marked by... -Small CP-bar present with trace retention of barium in the UES for all consistencies. Trace retrograde flow of barium from the UES to the pyriforms with sequential thin via straw. During sequential sip of thin liquids via straw, he had brief noisy breathing observed by FAMILY SERVICE CASEWORKER and RN. The other trials he consumed with no changes in breathing. Pt reported at the end of the study that he can feel when his breathing is about to change. It sometimes happens without food/drink, but it does seem to worsen sometimes with food/drink. He avoids cold drinks and has to take his time with all food/drink. Recommendations Diet: Regular Textures and Thin Liquids Comment: IF CHANGES IN BREATHING WITH ORAL INTAKE, HOLD FOOD/DRINK AND RESUME AT A LATER TIME. PRESS CALL LIGHT FOR RN ASSISTANCE IF WORSENING BREATHING. Compensatory Strategies: Small Bites, Small Sips, Slow Rate, Sitting upright and Remain sitting upright for 30 minutes after PO intake Supervision: Distant Supervision Recommend Repeat Modified Barium Swallow: TBD Need for Skilled Speech Therapy Services: Yes Comment: Follow 2-3X to ensure diet tolerance. No need for OP ST at discharge. Review rescue breathing with pt and staff. Education Completed: 1. Described result of evaluation. and 2. Pt understands evaluation & agrees with goals and treatment plan. Comment: Continue to follow routinely with GI and ENT. No need for inpatient consults from this MBSS. Status Active ST Patient: Active Contact Information [facility] Speech Therapy:: Dulce Maria Anderson M.A. CCC-FAMILY SERVICE CASEWORKER? Speech-Language Pathologist?? [facility] [address] [place] [address]? [email or web address]?? [phone]
[2023-08-14] MEDS: Ensure Plus High Protein 120 ML LIQUID PO (17:21)
[2023-08-15] VITALS (7 sets, daily range): BP systolic 118–132; BP diastolic 78–87; PULSE 61–75; RESP 14–18; TEMP 36.6–36.7; O2SAT 92–100
[2023-08-15] MEDS: Levothyroxine 150 MCG Tablet PO (05:37)
[2023-08-15] MEDS: Carbidopa/Levodopa 25/100 Tablet PO ×2 (05:38→11:11)
[2023-08-15] MEDS: Ipratropium/Albuterol Sulfate 3 ML AMPUL.NEB INHALATION (07:29)
[2023-08-15] MEDS: Aspirin 81 MG TAB.CHEW PO (08:22)
[2023-08-15] MEDS: Clopidogrel Bisulfate 75 MG Tablet PO (08:22)
[2023-08-15] MEDS: Pantoprazole Sodium 40 MG Tablet PO (08:22)
[2023-08-15] MEDS: Atorvastatin Calcium 10 MG Tablet PO (08:22)
[2023-08-15] MEDS: Tamsulosin HCl 0.4 MG Capsule PO (08:22)
[2023-08-15] MEDS: Metoprolol(XL)Succ 25 MG Tablet 12.5 MG PO (08:22)
[2023-08-15] MEDS: Heparin Injection (Vial) 5,000 UNIT/ML VIAL 5000 UNIT SC (08:23)
[2023-08-15] MEDS: Ensure Plus High Protein 120 ML LIQUID PO (08:30)
[2023-08-15] MEDS: Ezetimibe 10 MG Tablet PO (08:30)
[2023-08-15] MEDS: guaiFENesin 1,200 MG Tablet 1200 MG PO (08:31)
[2023-08-15] MEDS: 0.9% Saline Lock 10 ML Syringe IV (08:39)
--- NOTE | 2023-08-15 10:23 | DCINST_ITS ---
Discharge Instructions Diet Discharge Diet: - (Soft,and bite sized food. Advised to avoid hard and long piece of meat.) Activity Discharge Activity: Return to Normal Activity Weight Bearing Status: Weight bearing as tolerated Dressing / Incision Call your doctor if you observe: Fever of 101 or Higher, Coldness, Increased Pain, Numbness or Tingling, Change in Color, Inability to urinate, Inability to have a bowel movement, Shortness of breath, Dizziness, Fainting spells, Swelling in the ankles, Chest pain, Prolonged hiccupping, Increased palpitations (irregular heartbeat) and Calf discomfort Follow Up Care When: IN 2 WEEKS Test Results: Test results from this visit will be discussed in further detail at your follow- up appointment, if applicable. Discharge Plan Admission Admit Date/Time: 08/13/23 18:03 Primary Reason for Your Visit: Worsening dyspnea most likely due to vocal cord dysfunction. Attending Provider: Delfin Russell Primary Care Provider: Cisco Dozier Consulting Providers: Cisco Davey; Flex Hsieh Instructions Additional Instructions / Restrictions: Patient was advised to follow-up with ENT in [facility] for vocal cord dysfunction. Discharge Orders/Prescriptions Prescriptions: New guaifenesin [Mucus Relief ER] 1,200 mg Tablet Extended Release 12hr 1,200 mg PO BID 7 Days Qty: 14 0RF prednisone 20 mg tablet 40 mg PO DAILY 5 Days Qty: 10 0RF Continued tamsulosin 0.4 mg capsule 0.4 mg PO BID carbidopa-levodopa 25-100 mg tablet 2 tab PO TID Qty: 540 2RF tizanidine 2 mg tablet 2 mg PO Q6H PRN (Reason: muscle spasticity) albuterol sulfate 90 mcg/actuation HFA aerosol inhaler 2 puff inhalation Q8H PRN (Reason: shortness of breath or wheezing) omeprazole 40 mg capsule,delayed release(DR/EC) 40 mg PO DAILY Breztri Aerosphere 160-9-4.8 mcg/actuation HFA aerosol inhaler 2 inh inhalation BID Qty: 10.7 3RF levothyroxine [Synthroid] 150 mcg tablet 150 mcg PO DAILY clopidogrel 75 mg tablet 75 mg PO DAILY aspirin [Luis Alberto Chewable Aspirin] 81 mg tablet,chewable 81 mg PO DAILY Patient Comments: 1 tablet by mouth once a day metoprolol succinate 25 mg tablet extended release 24 hr 12.5 mg PO DAILY ezetimibe 10 mg tablet 10 mg PO DAILY rosuvastatin 5 mg tablet 5 mg PO DAILY (DME) Handicap placard See Rx Instructions .Route .MEDSUPPLY Qty: 1 0RF Rx Instructions: Expiration: 10/01/2025 ipratropium-albuterol 0.5 mg-3 mg(2.5 mg base)/3 mL solution for nebulization 3 ml inhalation Q4H PRN PRN (Reason: SOB &/OR WHEEZING) Qty: 180 11RF potassium chloride 20 mEq tablet extended release 20 meq PO DAILY Qty: 90 3RF Held furosemide [Lasix] 40 mg tablet 40 mg PO DAILY Hold Instructions: Hold for 3 days and then to start with 20 mg for next 3 days and then 40 mg daily. Hold for SBP less than 130 mmHg Discontinued budesonide-formoterol [Symbicort] 160-4.5 mcg/actuation HFA aerosol inhaler 2 inh inhalation BID Qty: 1 3RF Rx Instructions: administer with spacer, rinse mouth after each use Referrals / Follow Up: Cisco Dozier, [Primary Care Provider] - Disposition Disposition (needs filled in before D/C Order can be placed): Home, Self Care
--- NOTE | 2023-08-15 10:31 | PCM.DC.SUM ---
Providers Date of Admission: 08/13/23 Date of Discharge: 08/15/23 Primary Care Physician: Dr. Cisco Dozier, Reason For Visit: EXACERBATION OF COPD, ORTHOSTATIC HYPOTENSION Diagnosis Discharge Diagnosis (1) Vocal cord dysfunction: Status: Acute Code(s): J38.3 - Other diseases of vocal cords (2) Orthostatic hypotension: Status: Acute Code(s): I95.1 - Orthostatic hypotension (3) Dysphagia: Status: Acute Code(s): R13.10 - Dysphagia, unspecified Plan Patient is a 63-year-old male who presented [facility] ED on 08/13/2023 with worsening dyspnea and dizziness/lightheadedness. 1. Dyspnea suspected secondary to vocal cord dysfunction; history of asthma?COPD overlap syndrome ? Had concern for possible asthma/COPD exacerbation on admit given reported worsening shortness of breath and wheezing noted on exam. Started on IV steroids on admit but patient did showed minimal improvement, so strongly suspect dyspnea is secondary to known worsening vocal cord dysfunction. Can continue IV steroids at decreased dosing and scheduled DuoNebs for now, likely okay to de-escalate in the next few days. 08/14: Patient is doing well. Patient discharged on 40 mg prednisone, burst therapy for 5 days. Advised to follow-up [facility]NT on discharge. 2. Oropharyngeal dysphagia ? Speech therapy following. Patient reported 20 to 25 pound weight loss over the past several months due to increased difficulty with swallowing both liquids and solids. Bedside speech therapy evaluation on 08/13 with some dysphagia noted, recommendation was for MBSS on afternoon of 08/13. His speech therapist recommended regular texture thin liquid. Compensatory strategies with small bites and small sips moderate sitting upright and remain upright for 30 minutes after p.o. intake recommended. Diagnosis oropharyngeal dysphagia. Advised to hold food or drink if patient noticed change in breathing with oral intake. 3. Orthostatic hypotension, improving ? Presented with dizziness and lightheadedness with ambulation, orthostatics positive in the ED. Given IV fluids on admission and patient with much improvement in dizziness on hospital day 2, was able to walk around the floor with assistance without any symptoms. Suspected orthostatic positive due to hypovolemia but Parkinson's disease noted below could also be playing a role. 08/14 this resolved after IV fluid. 4. Mild acute on chronic debility ? PT/OT/case management following. Patient did well with therapy on hospital day 2, will be okay for discharge home with outpatient physical therapy as needed. 5. Parkinson's disease ? Follows with outpatient neurology. Diagnosed about 2 years ago. Onset about 3 times daily and reports good control of symptoms. Continue home Sinemet. 6. History of GERD with esophagitis ? S/p EGD and colonoscopy done with Dr. Beauchamp in February 2023. Patient presented at that time with worsening diarrhea. EGD showed nonsevere acute esophagitis with no bleeding. Colonoscopy showed mild inflammation in the ileum secondary to ileitis. Patient now with worsening dysphagia as noted above, GI consulted for consideration of repeat EGD. Continue home PPI. Chronic medical conditions: ? History of CAD s/p stenting, hypertension, hyperlipidemia, carotid artery stenosis, history of HFpEF: Stable, not in acute exacerbation of heart failure. Continue home Toprol, Lasix, statin, Zetia, aspirin, and Plavix. ? MARYJO: Continue home nocturnal CPAP. ? Hypothyroidism: Continue home Synthroid. ? BPH with obstructive symptoms: Continue home tamsulosin. DVT prophylaxis: Lovenox CODE STATUS: DNR CCA, DNI Discharge medication reconciliation done. Discharge follow-up instructions completed. Discharge process discussed with the patient and all questions were answered to patient's satisfaction. Follow with PCP in 1 to 2 weeks Total time spent, exact 35 minutes on discharge meds reconciliation, examination, coordination of care with nurses and ancillary staff, review of imaging and blood test and discussion with the patient on follow-up instructions. Medications at Discharge Home Medications levothyroxine 150 mcg tablet (Synthroid) 150 mcg PO DAILY thyroid 01/13/21 aspirin 81 mg chewable tablet (Luis Alberto Chewable Low Dose Aspirin) 81 mg PO DAILY heart health 01/24/22 clopidogrel 75 mg tablet 75 mg PO DAILY anit platelet 01/24/22 ezetimibe 10 mg tablet 10 mg PO DAILY as prescribed 01/24/22 metoprolol succinate 25 mg tablet,extended release 24 hr 12.5 mg PO DAILY bp 01/24/22 rosuvastatin 5 mg tablet 5 mg PO DAILY cholesterol 01/24/22 tamsulosin 0.4 mg capsule 0.4 mg PO BID prostate 05/17/22 furosemide 40 mg tablet (Lasix) 40 mg PO DAILY diuretic 06/04/22 Handicap placard #1 ea 10/01/22 carbidopa 25 mg-levodopa 100 mg tablet 2 tab PO TID parkinsons #540 tabs 01/31/23 ipratropium 0.5 mg-albuterol 3 mg (2.5 mg base)/3 mL nebulization soln 3 ml inhalation Q4H PRN PRN SOB &/OR WHEEZING #180 mL 05/17/23 albuterol sulfate 90 mcg/actuation aerosol inhaler 2 puff inhalation Q8H PRN shortness of breath or wheezing 06/10/23 omeprazole 40 mg capsule,delayed release 40 mg PO DAILY gerd 06/18/23 tizanidine 2 mg tablet 2 mg PO Q6H PRN muscle spasticity 06/21/23 budesonide 160 mcg-glycopyr 9 mcg-formot 4.8 mcg/actuation HFA inhaler (Breztri Aerosphere) 2 inh inhalation BID #10.7 grams 07/09/23 potassium chloride 20 mEq tablet,extended release 20 meq PO DAILY #90 tabs 07/10/23 guaifenesin 1,200 mg tablet, extended release 12 hr (Mucus Relief ER) 1,200 mg PO BID 1 week #14 tabs 08/15/23 prednisone 20 mg tablet 40 mg (2 x 20 mg) PO DAILY 5 days #10 tabs 08/15/23 Physical Exam Narrative Seen and examined I talked to the patient's near the bedside. Denies any acute or recent difficulty in swallowing. Advised to avoid large meat. Physical exam General: Alert, Oriented x3, Cooperative HEENT: Atraumatic, PERRLA, EOMI, Normocephalic Oral: No Gingival or Mucosal Lesions/ Ulcerations Neck: Supple, No JVD, Negative Carotid Bruits Chest wall/Lungs: Air entry diminished in bilateral lung bases. No crepitation/rhonchi Cardiovascular: Regular rate, Regular Rhythm, Normal S1, Normal S2, No M/G/R Abdomen: Bowel Sounds Present, Soft, Non Tender, Non-Distended : No dysuria. No renal angle tenderness. No suprapubic tenderness. Extremities: No edema, Capillary Refill Less than 3 Seconds Skin: No rashes, No breakdown Musculoskeletal: No Tenderness to Palpation of Joints or Extremities Neurological: Cranial nerves II-XII grossly intact, DTR 2+/4. No acute focal neurological deficit. Psych/Mental Status: Flat affect. Weight / BMI Weight Weight: 194 lb 1 oz Body Mass Index (BMI) 28.6 ABG / Lab / Microbiology Data 08/13/23 13:43 08/14/23 08:11 Microbiology: Microbiology 08/13/23 17:07 Mucosa - Nasopharyngeal Respiratory Panel (PCR) - Final 08/13/23 17:07 Nasal Secretion SARS-CoV-2 Antigen (Rapid) - Final D/C Instructions Discharge Diet: - (Soft,and bite sized food. Advised to avoid hard and long piece of meat.) Weight Bearing Status: Weight bearing as tolerated Call your doctor if you observe: Fever of 101 or Higher, Coldness, Increased Pain, Numbness or Tingling, Change in Color, Inability to urinate, Inability to have a bowel movement, Shortness of breath, Dizziness, Fainting spells, Swelling in the ankles, Chest pain, Prolonged hiccupping, Increased palpitations (irregular heartbeat) and Calf discomfort When: IN 2 WEEKS Meaningful Use Info Meaningful Use Meaningful Use Diagnoses (Choose all that apply): None applicable Ischemic Stroke Statin Dosing Therapy Reference: STATIN DOSE THERAPY REFERENCE: * Patients > 75 years receive moderate or high dose statin therapy. * Patients 75 years or YOUNGER should receive HIGH intensity statin dose unless contraindicated. You will be required to document reason for non-treatment if statin daily dose does not meet guidelines. HIGH DOSE STATIN THERAPY DAILY Atorvastatin > than or = to 40 mg Rosuvastatin > than or = to 20 mg Amlodipine + Atorvastatin > than or = to 2.5/40 mg Ezetimibe + Simvastatin 10/80 mg Simvastatin 80mg Discharge Plan Admission Admit Date/Time: 08/13/23 18:03 Primary Reason for Your Visit: Worsening dyspnea most likely due to vocal cord dysfunction. Attending Provider: Delfin Russell Primary Care Provider: Cisco Dozier Consulting Providers: Cisco Davey; Flex Hsieh Instructions Additional Instructions / Restrictions: Patient was advised to follow-up with ENT in [facility] for vocal cord dysfunction. Discharge Orders/Prescriptions Prescriptions: New guaifenesin [Mucus Relief ER] 1,200 mg Tablet Extended Release 12hr 1,200 mg PO BID 7 Days Qty: 14 0RF prednisone 20 mg tablet 40 mg PO DAILY 5 Days Qty: 10 0RF Continued tamsulosin 0.4 mg capsule 0.4 mg PO BID carbidopa-levodopa 25-100 mg tablet 2 tab PO TID Qty: 540 2RF tizanidine 2 mg tablet 2 mg PO Q6H PRN (Reason: muscle spasticity) albuterol sulfate 90 mcg/actuation HFA aerosol inhaler 2 puff inhalation Q8H PRN (Reason: shortness of breath or wheezing) omeprazole 40 mg capsule,delayed release(DR/EC) 40 mg PO DAILY Breztri Aerosphere 160-9-4.8 mcg/actuation HFA aerosol inhaler 2 inh inhalation BID Qty: 10.7 3RF levothyroxine [Synthroid] 150 mcg tablet 150 mcg PO DAILY clopidogrel 75 mg tablet 75 mg PO DAILY aspirin [Luis Alberto Chewable Aspirin] 81 mg tablet,chewable 81 mg PO DAILY Patient Comments: 1 tablet by mouth once a day metoprolol succinate 25 mg tablet extended release 24 hr 12.5 mg PO DAILY ezetimibe 10 mg tablet 10 mg PO DAILY rosuvastatin 5 mg tablet 5 mg PO DAILY (DME) Handicap placard See Rx Instructions .Route .MEDSUPPLY Qty: 1 0RF Rx Instructions: Expiration: 10/01/2025 ipratropium-albuterol 0.5 mg-3 mg(2.5 mg base)/3 mL solution for nebulization 3 ml inhalation Q4H PRN PRN (Reason: SOB &/OR WHEEZING) Qty: 180 11RF potassium chloride 20 mEq tablet extended release 20 meq PO DAILY Qty: 90 3RF Held furosemide [Lasix] 40 mg tablet 40 mg PO DAILY Hold Instructions: Hold for 3 days and then to start with 20 mg for next 3 days and then 40 mg daily. Hold for SBP less than 130 mmHg Discontinued budesonide-formoterol [Symbicort] 160-4.5 mcg/actuation HFA aerosol inhaler 2 inh inhalation BID Qty: 1 3RF Rx Instructions: administer with spacer, rinse mouth after each use Referrals / Follow Up: Cisco Dozier DO [Primary Care Provider] - Disposition Disposition (needs filled in before D/C Order can be placed): Home, Self Care Charges/Coding Visit Charges Inpatient E&M: 55637 Disch Hosp >30min
--- NOTE | 2023-08-15 12:03 | PHA.DC.MC.R ---
Pharmacy [facility] Pharm[facility] Service has performed discharge medication reconciliation and counseling for this patient. The patient's discharge medication list was reviewed for discrepancies and discrepancies were resolved. The patient was counseled on the following discharge medications and changes in medications for homegoing were reviewed. 1. PREDNISONE 2. LASIX: DOSE CHANGE/ TITRATION The Reason for Use, instructions for use, and potential side effects were reviewed for all new medications. The patient's questions regarding all of their medications were answered. The patient was able to verbally demonstrate an understanding of their discharge medications. The patient was counselled by Gertrude Truong PharmD Candidate Medications at Discharge Home Medications levothyroxine 150 mcg tablet (Synthroid) 150 mcg PO DAILY thyroid 01/13/21 aspirin 81 mg chewable tablet (Luis Alberto Chewable Low Dose Aspirin) 81 mg PO DAILY heart health 01/24/22 clopidogrel 75 mg tablet 75 mg PO DAILY anit platelet 01/24/22 ezetimibe 10 mg tablet 10 mg PO DAILY as prescribed 01/24/22 metoprolol succinate 25 mg tablet,extended release 24 hr 12.5 mg PO DAILY bp 01/24/22 rosuvastatin 5 mg tablet 5 mg PO DAILY cholesterol 01/24/22 tamsulosin 0.4 mg capsule 0.4 mg PO BID prostate 05/17/22 furosemide 40 mg tablet (Lasix) 40 mg PO DAILY diuretic 06/04/22 Handicap placard #1 ea 10/01/22 carbidopa 25 mg-levodopa 100 mg tablet 2 tab PO TID parkinsons #540 tabs 01/31/23 ipratropium 0.5 mg-albuterol 3 mg (2.5 mg base)/3 mL nebulization soln 3 ml inhalation Q4H PRN PRN SOB &/OR WHEEZING #180 mL 05/17/23 albuterol sulfate 90 mcg/actuation aerosol inhaler 2 puff inhalation Q8H PRN shortness of breath or wheezing 06/10/23 omeprazole 40 mg capsule,delayed release 40 mg PO DAILY gerd 06/18/23 tizanidine 2 mg tablet 2 mg PO Q6H PRN muscle spasticity 06/21/23 budesonide 160 mcg-glycopyr 9 mcg-formot 4.8 mcg/actuation HFA inhaler (Breztri Aerosphere) 2 inh inhalation BID #10.7 grams 07/09/23 potassium chloride 20 mEq tablet,extended release 20 meq PO DAILY #90 tabs 07/10/23 guaifenesin 1,200 mg tablet, extended release 12 hr (Mucus Relief ER) 1,200 mg PO BID 1 week #14 tabs 08/15/23 prednisone 20 mg tablet 40 mg (2 x 20 mg) PO DAILY 5 days #10 tabs 08/15/23
--- NOTE | 2023-08-15 12:19 | CASEMGMT ---
Noted no therapy recommended for pt. Pt did not qualify for increase in oxygen. Pt ready for dc this date.
== END 2023-08-15 13:05 | disposition home or self-care (01) | DRG 155 ==
LOC: ED 17:33 → MS3 18:40
PROVIDERS: Hospitalist; Admitting Provider Internal Medicine; Emergency Provider Emergency Medicine; PCP Family Medicine; Visit Provider Internal Medicine
DX: J38.3 Other diseases of vocal cords (principal); J44.1 Chronic obstructive pulmonary disease with (acute) exacerbation; I50.32 Chronic diastolic (congestive) heart failure; I11.0 Hypertensive heart disease with heart failure; G20.C Parkinsonism, unspecified; E03.9 Hypothyroidism, unspecified; E78.5 Hyperlipidemia, unspecified; I95.1 Orthostatic hypotension; I25.10 Atherosclerotic heart disease of native coronary artery without angina pectoris; G47.33 Obstructive sleep apnea (adult) (pediatric); E86.1 Hypovolemia; K21.00 Gastro-esophageal reflux disease with esophagitis, without bleeding; R53.81 Other malaise; Z79.51 Long term (current) use of inhaled steroids; Z95.5 Presence of coronary angioplasty implant and graft; Z79.02 Long term (current) use of antithrombotics/antiplatelets; Z87.891 Personal history of nicotine dependence; Z79.82 Long term (current) use of aspirin; Z66 Do not resuscitate; R13.12 Dysphagia, oropharyngeal phase
CPT/HCPCS: 70450; 71045; 71275; 74230; 80048; 80076; 83880; 84484; 85025; 87633; 87811; 92526; 92610; 92611; 93005; 94640; 94660; 94668; 94760; 94762; 97161; 97166; 97802; 99284; J7030; J7040; Q9967; A4216

== ENCOUNTER 2023-09-07 13:18 | Inpatient (IN) | payer MEDICARE, BC, SELFPAY ==
[2023-09-07 13:31] VITALS: BP 122/80; PULSE 87; RESP 18; TEMP 36.1; O2SAT 100; BMI 29.5
--- NOTE | 2023-09-07 16:31 | HP.PCM_ITS ---
[facility] - General General Date of Admission: 09/07/23 Date of Service: 09/09/23 Chief Complaint: Here for rehabilitation, tracheostomy teaching/education. HPI Narrative FREDDIE DUMONT, is a 63 Male who presents with followin09/02/2023 [address]mit [facility]. 09/02/2023 Dr. Galvan performed tracheostomy 2/ bilateral vocal cord paralysis, stridor. 09/04/2023 Did well overnight, pain controlled, Ambulate TID, trach care, teaching. 09/05/2023 Trach size, size 6 cuffed. Ciprodex drops down trach tube. Regular diet. 09/06/2023 Tracheostomy tube change without complication. 09/07/2023 Admit to TCU with debility, here for rehabilitation, strengthening, tracheostomy education/teaching. [facility] Medical History (Updated 09/07/23 @ 16:[address] Eugene Brice MD) Dysphagia Vocal cord dysfunction (HFpEF) heart failure with preserved ejection fraction Carotid artery disease Dizziness Hypokalemia Hypoxia Asthma-COPD overlap syndrome Hyperlipidemia COPD (chronic obstructive pulmonary disease) Carotid artery stenosis Osteoarthritis of right hip Angioedema Diastolic dysfunction Throat clearing Moist mucous membranes of ear, nose, and throat Cough Oral thrush Carotid artery, internal, occlusion MARYJO (obstructive sleep apnea) Smoking greater than 30 pack years Chronic diastolic (congestive) heart failure Orthostatic hypotension Fatigue Hypersomnia Parkinson's disease Mild cognitive impairment Benign localized hyperplasia of prostate with urinary obstruction and lower urinary tract symptoms Weak urinary stream Urinary frequency Urge incontinence of urine Tobacco abuse counseling Tobacco abuse Shortness of breath on exertion Snoring Postoperative hypothyroidism Observed sleep apnea Nocturia Laryngeal spasm Hypertension Hypercholesterolemia Hoarseness of voice Elevated brain natriuretic peptide (BNP) level Elevated troponin level Fungal infection Change in voice CAD (coronary artery disease) Breathing difficult Bradycardia ACS (acute coronary syndrome) Asthma History of nuclear stress test Acute deep vein thrombosis of lower extremity Abnormal CT of the chest Dyspnea Wears glasses Alcohol use Arthritis DVT (deep venous thrombosis) Gastric reflux Smoker Cricopharyngeal dysphagia Parasomnia Bilateral hearing loss Spasm of vocal cords High cholesterol Hypothyroidism Home Medications ?Medication ?Instructions ?Recorded ?Last Taken ?Type levothyroxine 150 mcg tablet 150 mcg PO DAILY thyroid 01/13/21 09/07/23 History (Synthroid) aspirin 81 mg chewable tablet 81 mg PO DAILY heart health 01/24/22 09/07/23 History (Luis Alberto Chewable Low Dose Aspirin) clopidogrel 75 mg tablet 75 mg PO DAILY anit platelet 01/24/22 09/07/23 History ezetimibe 10 mg tablet 10 mg PO DAILY as prescribed 01/24/22 09/07/23 History metoprolol succinate 25 mg 12.5 mg PO DAILY bp 01/24/22 Unknown History tablet,extended release 24 hr rosuvastatin 5 mg tablet 5 mg PO DAILY cholesterol 01/24/22 09/07/23 History tamsulosin 0.4 mg capsule 0.4 mg PO DAILY prostate 05/17/22 09/07/23 History furosemide 40 mg tablet (Lasix) 40 mg PO DAILY diuretic 06/04/22 09/07/23 History Handicap placard #1 ea 10/01/22 Unknown Rx carbidopa 25 mg-levodopa 100 mg 2 tab PO TID parkinsons #540 tabs 01/31/23 09/07/23 Rx tablet ipratropium 0.5 mg-albuterol 3 mg 3 ml inhalation Q4H PRN PRN SOB 05/17/23 Unknown Rx (2.5 mg base)/3 mL nebulization &/OR WHEEZING #180 mL soln albuterol sulfate 90 mcg/actuation 1 puff inhalation Q8H PRN 06/10/23 Unknown History aerosol inhaler shortness of breath or wheezing omeprazole 40 mg capsule,delayed 40 mg PO DAILY gerd 06/18/23 Unknown History release tizanidine 2 mg tablet 2 mg PO Q6H PRN muscle spasticity 06/21/23 Unknown History budesonide 160 mcg-glycopyr 9 2 inh inhalation BID breathing 07/09/23 09/06/23 Rx mcg-formot 4.8 mcg/actuation HFA #10.7 grams inhaler (Breztri Aerosphere) potassium chloride 20 mEq 20 meq PO DAILY supplement #90 tabs 07/10/23 Unknown Rx tablet,extended release guaifenesin 1,200 mg tablet, 1,200 mg PO BID 1 week #14 tabs 08/15/23 Unknown Rx extended release 12 hr (Mucus Relief ER) prednisone 20 mg tablet 40 mg (2 x 20 mg) PO DAILY 5 days 08/15/23 Unknown Rx #10 tabs oxycodone 5 mg tablet 5 mg PO Q6H PRN pain (1-10) 09/07/23 Unknown History Allergy/AdvReac Type Severity Reaction Status Date / Time vibegron (From [place]) Allergy Severe Rash Verified 07/09/23 11:26 Family History Father COPD (chronic obstructive pulmonary disease) Emphysema lung Myocardial infarction Mother Parkinsons disease Malignant melanoma Surgical History (Updated 09/07/23 @ 16:[address] Eugene Brice MD) 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 artery (~06/06/21) H/O cardiac catheterization (~06/06/21) Hx of arthroscopy of knee H/O knee surgery H/O thyroidectomy Social History (Updated 09/07/23 @ 16:[address] Eugene Brice MD) household members: spouse Smoking Status: Former smoker Tobacco: How many years used: 45 second hand exposure: Yes alcohol intake: former substance use type: does not use caffeine: Yes (daily) Type: coffee Number of servings: 2 what type of physical activity do you participate in: walking seatbelt use: sometimes ROS Constitutional Constitutional: Denies chills, fever(s) or weight gain ENT HEENT: Denies headache(s), nasal congestion or nasal discharge Cardiovascular Cardiovascular: Denies chest pain or palpitations Respiratory/Chest Respiratory/Chest: Denies cough, excessive phlegm production or shortness of breath with exertion Gastrointestinal Gastrointestinal: Denies abdominal pain, nausea or vomiting Genitourinary Genitourinary: Denies dysuria Musculoskeletal Musculoskeletal: Denies joint pain or joint swelling Integumentary Integumentary: Denies rash or wounds Neurologic Neurologic: Denies focal weakness, numbness or tingling Psychiatric Psychiatric: Denies anxiety, auditory hallucinations, depression, homicidal ideation or suicidal ideation Vital Signs Vital Signs Vital Signs: 09/07/23 13:31 09/07/23 13:56 Temperature 97 F L Temperature Source Temporal Pulse Rate 87 Pulse Rhythm Regular Pulse Strength Normal (2+) Respiratory Rate 18 Respiratory Effort Normal Non-Labored Respiratory Depth Normal Respiratory Pattern Normal Blood Pressure 122/80 H Blood Pressure Mean 94 Blood Pressure Source Monitor Blood Pressure Position Standing Blood Pressure Location Right Arm Pulse Ox 100 Oxygen Delivery Method Room Air Room Air Weight Weight: 90.718 kg Body Mass Index (BMI) 29.5 Physical Exam Const alert General Appearance: cooperative HEENT normocephalic HEENT Narrative: s/p Tracheostomy, trach collar. Eyes PERRL and EOMs intact bilaterally Neck supple, no JVD and no carotid bruits Resp normal respiratory effort, normal air movement and clear to auscultation bilaterally Cardio regular rate and regular rhythm GI normal to inspection, nondistended, normoactive bowel sounds, non-tender and non-distended Extremity normal capillary refill General Extremity: Negative for edema Skin no rashes or lesions noted General Skin Exam: no breakdown Psych affect normal Appearance: appropriate Results Lab / Micro Data 09/08/23 04:08 09/08/23 04:08 Assessment & Plan Assessment/Plan (1) Debility: (2) Vocal cord dysfunction: (3) Dysphagia: (4) Status post tracheostomy: (5) Parkinson's disease: (6) COPD (chronic obstructive pulmonary disease): (7) Asthma: QUALIFIERS: Asthma complication type: with acute exacerbation A sthma persistence: persistent Asthma severity: severe Qualified Code(s): J 45.51 - Severe persistent asthma with (acute) exacerbation (8) Hypothyroidism: (9) CAD (coronary artery disease): (10) Hyperlipidemia: (11) BPH (benign prostatic hyperplasia): (12) (HFpEF) heart failure with preserved ejection fraction: (13) GERD (gastroesophageal reflux disease): PLAN: Plan 63 year old male with below past medical history underwent tracheostomy 09/02/[address] Galvan for vocal cord dysfunction, postoperative course uncomplicated, admitted to TCU with debility, here for rehabilitation, strengthening, teaching/education prior to discharge home with . * Debility - PT/OT. * Pain - Tylenol 1000mg q6 prn pain (1-3), Oxycodone 5mg q4 prn pain (4-10). * Bowel - senna/colace 1 tablet bid, Magnesium citrate 300ml daily prn. * Adult immunization - Administer pneumonia vaccine, covid vaccine, flu vaccine as appropriate. * DVT prophylaxis - Lovenox 40mg sc daily. * Asthma/COPD - Fluticasone/Salmeterol 232-14 1 puff q12h, Incruse 1 puff daily, Albuterol 2.5mg neb q4 prn. * Coronary artery disease s/p stent - Metoprolol succinate 12.5mg daily, Plavix 75mg daily, Aspirin 81mg daily. * Hyperlipidemia - Atorvastatin 10mg qhs, Zetia 10mg daily. * Parkinson Disease - Sinemet 25/100mg 2 tablets tidac. * HFpEF - Metoprolol succinate 12.5mg daily, Furosemide 40mg daily. * Hypothyroidism - Levothyroxine 150mcg daily. * GERD - Pantoprazole 40mg daily. * Hypokalemia - KCL 20meq daily. * BPH - Tamsulosin 0.4mg daily.
[2023-09-07] MEDS: Carbidopa/Levodopa 25/100 Tablet PO (17:27)
[2023-09-07] MEDS: Fluticasone/Salmeterol 232-14 Inhaler 1 PUFF INHALATION (20:42)
[2023-09-07] MEDS: Senna/Docusate Sodium 1 Tablet PO (20:44)
[2023-09-07 21:15] VITALS: O2SAT 100
--- NOTE | 2023-09-07 22:39 | CPS ---
Cool aerosol is ran with 28% O2 at 6L instead of room air, since there is not an Air hookup in TCU.
[2023-09-08 04:33] LABS: Absolute Lymphocyte Count 1.87 X10^3/uL (0.83-4.51); Absolute Neutrophil Count 3.5 X10^3/uL (2.0-7.7); Basophil# 0.02 X10^3/uL; Basophil% 0.3 % (0-1); Eosinophil# 0.17 X10^3/uL; Eosinophils% 2.8 % (0-5); Hematocrit 39.1 % (40-54); Lymphocyte # 1.87 X10^3/ul (0.83-4.51); Lymphocyte % 30.8 % (19-41); Mean Corp Hgb Conc 33.2 g/dL (32-36); Mean Corpuscular Hgb 31.8 pg (27.0-32.0); Mean Corpuscular Volume 95.6 fL (80-94); Mean Platelet Vol. 12.1 fl (6.2-12.0); Monocyte# 0.52 X10^3/uL; Monocyte% 8.6 % (0-10); NRBC Flagged by Analyzer 0 % (0-5); Neutrophil # 3.48 X10^3/uL (2.7-7.7); Neutrophil % 57.2 % (47-70); Platelet Count 133 K/mm3 (150-450); RBC Distribution Width CV 14.4 % (11.6-14.6); RBC Distribution Width SD 50.8 fl (35.1-43.9); Red Blood Count 4.09 M/mm3 (4.6-6.2); White Blood Count 6.1 K/mm3 (4.4-11.0)
[2023-09-08 05:03] LABS: Anion Gap 5 (5-15); BUN 20 mg/dL (7-18); BUN/Creat Ratio 23.4 RATIO (10-20); Calcium,Total 8.8 mg/dL (8.5-10.1); Chloride 107 mmol/L (98-107); Creatinine, Serum 0.85 mg/dL (0.70-1.30); EST Glomerular Filtration Rate 96 mL/min (>60); Est Glom Filt Rate - Afr Amer 116 mL/min (>60); Estimated Creatinine Clearance 96.45 ml/min; Glucose 96 mg/dL (74-106); Potassium 3.5 mmol/L (3.5-5.1); Sodium Level 141 mmol/L (136-145)
[2023-09-08] MEDS: Levothyroxine 150 MCG Tablet PO (05:34)
[2023-09-08] MEDS: Carbidopa/Levodopa 25/100 Tablet PO ×3 (06:42→17:22)
--- NOTE | 2023-09-08 07:44 | CPS ---
RT went to check on pt, PT was suctioned and placed back on passing austin valve and RA by RN. Pt talked to RT about inhaler he was given, stated he didn't feel like he got the medicine. RT checked with RN on the inhaler, the inhaler was a dry powder inhaler and not able to work with patient because of the trach. This Rt talked to pharmacy about changing the inhaler. Both the RT and Pharmacy agreed the medicine will be change to aerosols at this time. Pharmacy states they will change the med in the Mar.
[2023-09-08] MEDS: Aspirin 81 MG TAB.CHEW PO (08:12)
[2023-09-08] MEDS: Potassium Chloride Oral Tablet 20 MEQ PO (08:13)
[2023-09-08] MEDS: Enoxaparin 40 MG/0.4 ML Syringe SC (09:18)
[2023-09-08] MEDS: Ezetimibe 10 MG Tablet PO (09:18)
[2023-09-08 09:19] VITALS: BP 105/59; PULSE 80
[2023-09-08] MEDS: Senna/Docusate Sodium 1 Tablet PO (09:19)
[2023-09-08] MEDS: Metoprolol(XL)Succ 25 MG Tablet 12.5 MG PO (09:19)
[2023-09-08] MEDS: Furosemide 40 MG Tablet PO (09:20)
[2023-09-08] MEDS: Clopidogrel Bisulfate 75 MG Tablet PO (09:20)
[2023-09-08] MEDS: Pantoprazole Sodium 40 MG Tablet PO (09:20)
[2023-09-08 10:00] VITALS: PULSE 80; RESP 16; O2SAT 94
[2023-09-08] MEDS: Tuberculin,Purif.prot.deriv. 50 TU/ML Vial 0.1 ML ID (11:21)
[2023-09-08 12:30] VITALS: BP 105/59; PULSE 80; RESP 16; TEMP 36.7; O2SAT 94
[2023-09-08] MEDS: Ipratropium/Albuterol Sulfate 3 ML AMPUL.NEB INHALATION ×2 (12:43→19:17)
[2023-09-08 12:49] VITALS: PULSE 80; RESP 16; O2SAT 92
[2023-09-08] MEDS: Tamsulosin HCl 0.4 MG Capsule PO (17:22)
[2023-09-08 19:17] VITALS: PULSE 83; RESP 20; O2SAT 91
[2023-09-08] MEDS: Atorvastatin Calcium 10 MG Tablet PO (20:15)
--- NOTE | 2023-09-08 21:21 | NURSING ---
Telephone order received and read back for Hydrocortisone cream 2.5% BID PRN to eczema patches to the arms and back.
[2023-09-09] VITALS (7 sets, daily range): BP systolic 98–117; BP diastolic 59–81; PULSE 70–82; RESP 14–18; TEMP 36.4; O2SAT 93–96
[2023-09-09] MEDS: Levothyroxine 150 MCG Tablet PO (05:55)
[2023-09-09] MEDS: Carbidopa/Levodopa 25/100 Tablet PO ×3 (05:55→17:17)
[2023-09-09] MEDS: Ipratropium/Albuterol Sulfate 3 ML AMPUL.NEB INHALATION ×3 (08:03→19:15)
[2023-09-09] MEDS: Budesonide Respules 0.5 MG/2 ML AMPUL.NEB. INHALATION ×2 (08:03→19:15)
[2023-09-09] MEDS: Aspirin 81 MG TAB.CHEW PO (08:21)
[2023-09-09] MEDS: Potassium Chloride Oral Tablet 20 MEQ PO (08:21)
[2023-09-09] MEDS: Furosemide 40 MG Tablet PO (08:21)
[2023-09-09] MEDS: Enoxaparin 40 MG/0.4 ML Syringe SC (08:21)
[2023-09-09] MEDS: Metoprolol(XL)Succ 25 MG Tablet 12.5 MG PO (08:22)
[2023-09-09] MEDS: Ezetimibe 10 MG Tablet PO (08:22)
[2023-09-09] MEDS: Pantoprazole Sodium 40 MG Tablet PO (08:22)
[2023-09-09] MEDS: Clopidogrel Bisulfate 75 MG Tablet PO (08:22)
--- NOTE | 2023-09-09 12:25 | NURSING ---
Medical Sales Consultant Note; Activity Asset: Micky Wade is independent in his choice of daily activities. 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 He watches tv, reads, visits w/family, friends and uatsdin. Rj welcomes visits w/the cell room operator and therapy dog when available. Staff will remind him of weekly activities and respect his right to say no.
--- NOTE | 2023-09-09 13:31 | PHA.CONS_ITS ---
TCU RX Drug Regimen Review Subjective/Objective Subjective/Objective: Subjective: 63 YOM initially admitted to [facility] on 09/02/23 for a tracheostomy. Resident was admitted to [facility] on 09/07/23 with debility for rehabilitation, strengthening, and tracheostomy education prior to discharge home with . Objective: Allergies vibegron (From [facility]) Allergy (Severe, Verified 07/09/23 11:26) Rash Current Medications Generic Name Dose Route Start Last Admin Trade Name Freq PRN Reason Stop Dose Admin Acetaminophen 1,000 mg 09/07/23 16:45 Acetaminophen 500 Mg Tablet PO Q6H PRN PRN Pain Score 1-3 Albuterol Sulfate 2.5 mg 09/07/23 14:09 Albuterol 2.5 Mg/3 Ml Vial.Neb. INHALATION Q4H PRN shortness of breath or wheezing Albuterol/Ipratropium 3 ml 09/08/23 08:00 09/09/23 13:28 Ipratropium/Albuterol Sulfate 3 Ml Ampul.Neb INHALATION 3 ml Q6HWA.RT SUNIL Administration Aspirin 81 mg 09/08/23 08:00 09/09/23 08:21 Aspirin 81 Mg Tab.Chew PO 81 mg DAILYCM SUNIL Administration Atorvastatin Calcium 10 mg 09/08/23 22:00 09/08/23 20:15 Atorvastatin Calcium 10 Mg Tablet PO 10 mg QHS SUNIL Administration Budesonide 0.5 mg 09/08/23 08:00 09/09/23 08:03 Budesonide Respules 0.5 Mg/2 Ml Ampul.Neb. INHALATION 0.5 mg Q12H.RT SUNIL Administration Carbidopa/Levodopa 2 tablet 09/07/23 16:45 09/09/23 11:39 Carbidopa/Levodopa 25/100 Tablet PO 2 tablet TIDAC SUNIL Administration Clopidogrel Bisulfate 75 mg 09/08/23 10:00 09/09/23 08:22 Clopidogrel Bisulfate 75 Mg Tablet PO 75 mg DAILY SUNIL Administration Ezetimibe 10 mg 09/08/23 10:00 09/09/23 08:22 Ezetimibe 10 Mg Tablet PO 10 mg DAILY SUNIL Administration Enoxaparin Sodium 40 mg 09/08/23 10:00 09/09/23 08:21 Enoxaparin 40 Mg/0.4 Ml Syringe SC 40 mg DAILY SUNIL Administration Furosemide 40 mg 09/08/23 10:00 09/09/23 08:21 Furosemide 40 Mg Tablet PO 40 mg DAILY SUNIL Administration Protocol Hydrocortisone 1 applic 09/08/23 21:19 Hydrocortisone 2.5% Crm TOPICAL BID PRN PRN RASH/TOPICAL IRRITATION Protocol Levothyroxine Sodium 150 mcg 09/08/23 06:00 09/09/23 05:55 Levothyroxine 150 Mcg Tablet PO 150 mcg DAILY@0600 SUNIL Administration Magnesium Citrate 300 ml 09/07/23 16:45 Magnesium Citrate 300 Ml PO DAILY PRN Constipation Metoprolol Succinate 12.5 mg 09/08/23 10:00 09/09/23 08:22 Metoprolol(Xl)Succ 25 Mg Tablet PO 12.5 mg DAILY SUNIL Administration Protocol Oxycodone HCl 5 mg 09/07/23 16:47 Oxycodone 5 Mg Tablet PO Q4H PRN PRN Pain Score 4-10 or Pre PT/OT Pantoprazole Sodium 40 mg 09/08/23 10:00 09/09/23 08:22 Pantoprazole Sodium 40 Mg Tablet PO 40 mg DAILY SUNIL Administration Potassium Chloride 20 meq 09/08/23 08:00 09/09/23 08:21 Potassium Chloride Oral Tablet 20 Meq PO 20 meq DAILYCM SUNIL Administration Senna/Docusate Sodium 1 tablet 09/07/23 22:00 09/09/23 08:22 Senna/Docusate Sodium 1 Tablet PO Not Given BID [facility] Tamsulosin HCl 0.4 mg 09/08/23 17:30 09/08/23 17:22 Tamsulosin Hcl 0.4 Mg Capsule PO 0.4 mg DAILY@1730 [facility] Administration Tuberculin PPD 0.1 ml 09/15/23 10:00 Tuberculin,Purif.Prot.Deriv. 50 Tu/Ml Vial ID 09/15/23 10:01 X1 ONE Problem List GERD (gastroesophageal reflux disease) (Acute) BPH (benign prostatic hyperplasia) (Acute) Status post tracheostomy (Acute) Dysphagia (Acute) Vocal cord dysfunction (Acute) Debility (Acute) Parkinson's disease (Chronic) (HFpEF) heart failure with preserved ejection fraction (Chronic) CAD (coronary artery disease) (Chronic) Hyperlipidemia (Chronic) COPD (chronic obstructive pulmonary disease) (Chronic) Asthma (Chronic) Hypothyroidism (Acute) Vital Signs Temp Pulse Resp BP Pulse Ox O2 Del Method O2 Flow Rate 98.0 F 79 18 98/59 L 93 Room Air 6 09/08/23 12:30 09/09/23 08:22 09/09/23 08:04 09/09/23 08:19 09/09/23 09:56 09/09/23 08:04 09/07/23 21:15 FiO2 28 09/07/23 21:15 Oxygen Flow Rate (L/min) 6 Oxygen Delivery Method Room Air Weight: 90.718 kg Body Mass Index (BMI) 29.5 Sodium 141 mmol/L (136-145) 09/08/23 04:08 Potassium 3.5 mmol/L (3.5-5.1) 09/08/23 04:08 Chloride 107 mmol/L (98-107) 09/08/23 04:08 Carbon Dioxide 29.0 mmol/L (21.0-32.0) 09/08/23 04:08 Anion Gap 5 (5-15) 09/08/23 04:08 BUN 20 mg/dL (7-18) H 09/08/23 04:08 Creatinine 0.85 mg/dL (0.70-1.30) 09/08/23 04:08 Est GFR (MDRD) Af Amer 116 mL/min (>60) 09/08/23 04:08 Est GFR (MDRD) Non-Af 96 mL/min (>60) 09/08/23 04:08 BUN/Creatinine Ratio 23.4 RATIO (10-20) H 09/08/23 04:08 Glucose 96 mg/dL (74-106) 09/08/23 04:08 Assessment/Plan: 1. Pain - Acetaminophen 1000mg Q6H PRN for pain scores (1-3), Oxycodone 5mg Q4H PRN for pain scores (4-10). Please continue to monitor for increasing/decreasing pain scores (denies pain as of 1140 09/09/23), increasing/decreasing PRN medication use (PRN medication not yet administered), liver function (last AST 11u/l, ALT 14u/L, and AlkPhos 96u/L on 08/13/23), constipation (last 2x BM on 09/08/23), and oversedation/falls while using oxycodone (BEERS) 2. Bowel - Senna/docusate 8.6/50mg PO BID, Mag cit 300ml PO daily PRN for derek andrew. Please continue to monitor for increasing/decreasing constipation/diarrhea (last 2x BM on 09/08/23), increasing/decreasing PRN medication use (PRN medication not yet administered) 3. DVT prophylaxis - Enoxaparin 40mg SC daily. Please continue to monitor renal function (last CrCl 96ml/min on 09/08/23), for bloody/dark and tarry stool, increasing bleeding/bruising, Hg (last 13g/dL on 09/08/23), Hct (last 39.1% on 09/08/23) 4. Asthma/COPD - Budesonide 0.5mg PO via neb Q12H, Duoneb 3ml PO via neb Q6H while awake, Albuterol 2.5mg PO via neb Q4H PRN for SOB or wheezing. Please continue to monitor respiratory rate (last 18bpm on 09/09/23), oxygen saturation (last 93% on 09/09/23), and increasing/decreasing PRN medication use (PRN medication not yet administered). 5. Parkinson?s - Carbidopa/levodopa 25mg/100mg 2 tablets TID after meals. Please continue to monitor for dyskinesia. 6. GERD - Pantoprazole 40mg PO daily. Please continue to monitor for S&S of GERD, serum magnesium (last 2.3mg/dL on 03/16/23) 7. BPH - Tamsulosin 0.4mg PO daily. Please continue to monitor for urinary retention, and BP (last 98/59mmHg on 09/09/23) 8. Cardiovascular (CAD, HFpEF, HLD) - Metoprolol succinate 12.5mg PO daily, Clopidagrel 75mg PO daily, Aspirin 81mg PO daily, Furosemide 40mg PO daily, Atorvastatin 10mg PO QHS, Ezetimibe 10mg PO daily. Please continue to monitor for bloody/dark and tarry stool, increasing bleeding/bruising, Hg (last 13g/dL on 09/08/23), Hct (last 39.1% on 09/08/23), blood pressure (last 98/59mmHg on 09/09/23), heart rate (last 79bmp on 09/09/23), serum lipids (last Tg 91mg/dL, TC 107mg/dL, LdL 31mg/dL, HDL 58mg/dL on 07/25/23), serum potassium (last 3.5mmol/L on 09/08/23), and liver function (last AST 11u/l, ALT 14u/L, and AlkPhos 96u/L on 08/13/23). 9. Hypothyroidism - Levothyroxine 150mcg PO daily. Please continue to monitor for S&S of sub/supratherapeutic treatment, thyroid function (last TSH 0.35uIU/ml on 03/18/23 and free T4 1.23ng/dL on 06/19/22) 10. Hypokalemia - KlorCon 20meq PO daily. Please continue to monitor serum potassium (last 3.5mmol/L on 09/09/23) 11. Skin irritation- Hydrocortisone 2.5% cream applied up to BID to arms for eczema PRN - Please continue to monitor for increasing/decreasing skin irritation, increasing/decreasing PRN medication use (PRN medication not yet administered) Assessment/Plan for indications treated with psychotropic medications: -The patient is not currently being maintained on any psychotropic medications at time of medication review. Medical chart and medication regimen reviewed. The following medication irregularities or issues were identified: -No medication irregularities were identified at time of medication list review. Date
--- NOTE | 2023-09-09 14:35 | CASEMGMT ---
Social Work SW met with pt to complete initial assessment. Introduced self and role. Verified/updated contacts. Patient confirmed code status as full code, Pt unsure if he has advanced directives. SW to follow up with . SW educated to Medicare benefit and copay coverage. Pt states he admitted for and dtr to gain more teaching with pt's new trache care. SW to update nursing for coordination. SW will continue to follow for DC planning. Milvia Harris, POST ACUTE CARE NURSE SIGNING AGENT
[2023-09-09] MEDS: Tamsulosin HCl 0.4 MG Capsule PO (17:17)
[2023-09-09] MEDS: Atorvastatin Calcium 10 MG Tablet PO (20:12)
[2023-09-10] MEDS: Carbidopa/Levodopa 25/100 Tablet PO ×3 (06:14→17:27)
[2023-09-10] MEDS: Levothyroxine 150 MCG Tablet PO (06:14)
[2023-09-10 08:00] VITALS: PULSE 79; RESP 16; O2SAT 95
[2023-09-10] MEDS: Ipratropium/Albuterol Sulfate 3 ML AMPUL.NEB INHALATION ×2 (08:00→12:40)
[2023-09-10] MEDS: Budesonide Respules 0.5 MG/2 ML AMPUL.NEB. INHALATION (08:00)
[2023-09-10 08:25] VITALS: BP 96/61; PULSE 78
[2023-09-10] MEDS: Metoprolol(XL)Succ 25 MG Tablet 12.5 MG PO (08:25)
[2023-09-10] MEDS: Aspirin 81 MG TAB.CHEW PO (08:26)
[2023-09-10] MEDS: Ezetimibe 10 MG Tablet PO (08:26)
[2023-09-10] MEDS: Furosemide 40 MG Tablet PO (08:26)
[2023-09-10] MEDS: Enoxaparin 40 MG/0.4 ML Syringe SC (08:26)
[2023-09-10] MEDS: Clopidogrel Bisulfate 75 MG Tablet PO (08:26)
[2023-09-10] MEDS: Potassium Chloride Oral Tablet 20 MEQ PO (08:26)
[2023-09-10] MEDS: Pantoprazole Sodium 40 MG Tablet PO (08:26)
[2023-09-10 08:29] VITALS: BP 96/61; PULSE 78; RESP 16; TEMP 36.3; O2SAT 92
--- NOTE | 2023-09-10 09:57 | NURSING ---
Spoke with Luz, pt's . She will come in today at 11am and tomorrow at 10am for Trach teaching. She will speak with her daughter for available times for she can come in also.
--- NOTE | 2023-09-10 11:40 | NURSING ---
pt spouse present for Trach education today. Spouse completed trach suctioning using sterile technique, inner canula removal and placement. Also assisted in cleaning around trach site and repositioning trach collar. [facility] booklet provided to pt for further education. Spouse to return tomorrow to continue further education with RT.
[2023-09-10 12:40] VITALS: PULSE 78; RESP 16
[2023-09-10 13:43] VITALS: BMI 29.9
[2023-09-10] MEDS: Tamsulosin HCl 0.4 MG Capsule PO (17:27)
[2023-09-10 19:40] VITALS: PULSE 80; RESP 18
[2023-09-10] MEDS: Atorvastatin Calcium 10 MG Tablet PO (21:06)
[2023-09-11] MEDS: Carbidopa/Levodopa 25/100 Tablet PO ×3 (06:00→17:09)
[2023-09-11] MEDS: Levothyroxine 150 MCG Tablet PO (06:01)
[2023-09-11 07:05] VITALS: PULSE 79; RESP 20
[2023-09-11] MEDS: Budesonide Respules 0.5 MG/2 ML AMPUL.NEB. INHALATION ×2 (07:05→19:15)
[2023-09-11] MEDS: Ipratropium/Albuterol Sulfate 3 ML AMPUL.NEB INHALATION ×3 (07:05→19:15)
[2023-09-11 08:17] VITALS: PULSE 70
[2023-09-11] MEDS: Potassium Chloride Oral Tablet 20 MEQ PO (08:17)
[2023-09-11] MEDS: Metoprolol(XL)Succ 25 MG Tablet 12.5 MG PO (08:17)
[2023-09-11] MEDS: Pantoprazole Sodium 40 MG Tablet PO (08:17)
[2023-09-11] MEDS: Enoxaparin 40 MG/0.4 ML Syringe SC (08:17)
[2023-09-11] MEDS: Clopidogrel Bisulfate 75 MG Tablet PO (08:17)
[2023-09-11] MEDS: Aspirin 81 MG TAB.CHEW PO (08:17)
[2023-09-11] MEDS: Furosemide 40 MG Tablet PO (08:17)
[2023-09-11] MEDS: Ezetimibe 10 MG Tablet PO (08:18)
--- NOTE | 2023-09-11 09:47 | CASEMGMT ---
Addendum entered by Milvia Harris 09/11/23 17:06: [facility] denied. [facility] can accept. SW secured [facility]. Addendum entered by Milvia Harris 09/11/23 15:20: Family provided preferences: [facility], [facility], [facility]. SW phoned referral to [facility] and they cannot accept new trach. [facility] via [facility]. Original Note: Social Work IDT met with patient, and dtr for care plan meeting. Discussed patient's progress in PT/OT/ST/SN. Educated to Medicare benefit and provided pt/family written communication on insurance process and copay coverage during stay. Once and dtr feel comfortable with trache training, pt can set DC date, and suggested not over the weekend d/t the nature of pt's needs. Family/pt agreed. Family would like continued teaching and estimating DC 09/16. SW to collaborate with nursing to have a list of supplies needed for pt at home and begin referrals. Recommending beginning with [facility] for nursing assistance, then transition pt to OP therapy. Pt agreeable. SW requested family to provide advanced directives. SW provided list of skilled HHC agencies with quality and resource data via [facility] Guide. Family to select preferences and notify this worker. Will continue to follow. SERA verbally updated INSTITUTION DIRECTOR on [facility] to order needed supplies. DEMETRIS DoW
--- NOTE | 2023-09-11 10:15 | CPS ---
Taught family how to do trach suctioning using sterile technique. Resident tolerated procedure well. Family member performing procedure did well with minimal guidance.
[2023-09-11 12:01] VITALS: BP 98/66; PULSE 70; RESP 18; TEMP 36.4; O2SAT 96
[2023-09-11 13:08] VITALS: PULSE 89; RESP 20
[2023-09-11] MEDS: Tamsulosin HCl 0.4 MG Capsule PO (17:09)
[2023-09-11 19:15] VITALS: PULSE 84; RESP 16; O2SAT 92
[2023-09-11] MEDS: Atorvastatin Calcium 10 MG Tablet PO (20:34)
[2023-09-12] MEDS: Carbidopa/Levodopa 25/100 Tablet PO ×3 (06:19→17:18)
[2023-09-12] MEDS: Levothyroxine 150 MCG Tablet PO (06:19)
[2023-09-12 07:46] VITALS: PULSE 82; RESP 20
[2023-09-12] MEDS: Ipratropium/Albuterol Sulfate 3 ML AMPUL.NEB INHALATION ×3 (07:46→19:20)
[2023-09-12] MEDS: Budesonide Respules 0.5 MG/2 ML AMPUL.NEB. INHALATION ×2 (07:46→19:20)
[2023-09-12] MEDS: Potassium Chloride Oral Tablet 20 MEQ PO (09:37)
[2023-09-12] MEDS: Aspirin 81 MG TAB.CHEW PO (09:37)
[2023-09-12] MEDS: Furosemide 40 MG Tablet PO (09:37)
[2023-09-12] MEDS: Enoxaparin 40 MG/0.4 ML Syringe SC (09:38)
[2023-09-12] MEDS: Clopidogrel Bisulfate 75 MG Tablet PO (09:39)
[2023-09-12] MEDS: Ezetimibe 10 MG Tablet PO (09:39)
[2023-09-12] MEDS: Pantoprazole Sodium 40 MG Tablet PO (09:39)
[2023-09-12 09:40] VITALS: PULSE 77
[2023-09-12] MEDS: Metoprolol(XL)Succ 25 MG Tablet 12.5 MG PO (09:40)
--- NOTE | 2023-09-12 11:24 | MDS.RN ---
MDS pain interview completed.
[2023-09-12 13:16] VITALS: PULSE 85; RESP 20; O2SAT 94
--- NOTE | 2023-09-12 14:38 | NURSING ---
Offered covid vaccine, VIS provided. Patient refuses at this time.
[2023-09-12 16:00] VITALS: BP 95/61; PULSE 81; RESP 16; TEMP 36.4; O2SAT 93
[2023-09-12] MEDS: Tamsulosin HCl 0.4 MG Capsule PO (17:18)
[2023-09-12] MEDS: Menthol/Lanolin/Calamine/Znox 113 GM Tube 1 APPLIC TOPICAL ×2 (17:46→20:17)
[2023-09-12 19:20] VITALS: PULSE 85; RESP 20
[2023-09-12] MEDS: Atorvastatin Calcium 10 MG Tablet PO (20:15)
[2023-09-13] MEDS: Carbidopa/Levodopa 25/100 Tablet PO ×3 (05:45→17:16)
[2023-09-13] MEDS: Levothyroxine 150 MCG Tablet PO (05:46)
[2023-09-13 06:33] VITALS: PULSE 78; RESP 16; O2SAT 96
[2023-09-13] MEDS: Budesonide Respules 0.5 MG/2 ML AMPUL.NEB. INHALATION ×2 (06:33→19:52)
[2023-09-13] MEDS: Ipratropium/Albuterol Sulfate 3 ML AMPUL.NEB INHALATION ×3 (06:33→19:52)
[2023-09-13] MEDS: Furosemide 40 MG Tablet PO (08:43)
[2023-09-13] MEDS: Potassium Chloride Oral Tablet 20 MEQ PO (08:43)
[2023-09-13] MEDS: Pantoprazole Sodium 40 MG Tablet PO (08:43)
[2023-09-13] MEDS: Ezetimibe 10 MG Tablet PO (08:43)
[2023-09-13] MEDS: Aspirin 81 MG TAB.CHEW PO (08:43)
[2023-09-13] MEDS: Enoxaparin 40 MG/0.4 ML Syringe SC (08:43)
[2023-09-13] MEDS: Clopidogrel Bisulfate 75 MG Tablet PO (08:43)
[2023-09-13 08:44] VITALS: PULSE 85
[2023-09-13] MEDS: Metoprolol(XL)Succ 25 MG Tablet 12.5 MG PO (08:44)
[2023-09-13] MEDS: Menthol/Lanolin/Calamine/Znox 113 GM Tube 1 APPLIC TOPICAL (08:48)
[2023-09-13 11:12] VITALS: BP 100/60; PULSE 85; RESP 18; TEMP 36.6; O2SAT 98
--- NOTE | 2023-09-13 12:57 | CASEMGMT ---
Social Work BIMS () and PHQ-2 () completed for MDS assessment. Milvia Harris MSW ENGRAVER SET UP OPERATOR
[2023-09-13 13:08] VITALS: PULSE 75; RESP 18
--- NOTE | 2023-09-13 14:47 | CASEMGMT ---
Addendum entered by Milvia Harris 09/16/23 12:27: SW phoned pts' to update that since pt is active with [facility] for O2, and family wanting to use [employer], needs to call [facility] to have them pickup driver the equipment and transfer the care to [facility]. agreed to place call today. SW updated [facility] on O2 needs and phone call to [facility] today. Inquiring about a potential DC date with trach supplies and O2. Will continue to follow. Original Note: Social Work SW spoke with pt, , and dtr in room. Updated to [facility] accepting pt at DC. Updated this worker received list of trach supplies pt will need at DC and sending referral to [facility]. Answered other questions for dtr within scope of practice. Referred to HAND SCREEN PRINTER for other questions. SW will continue to follow for DC planning. Referral sent to [facility] via email and [facility]. Milvia Harris, DEMETRIS ALVARESW
[2023-09-13] MEDS: Tamsulosin HCl 0.4 MG Capsule PO (17:16)
[2023-09-13 19:52] VITALS: PULSE 69; RESP 20; O2SAT 96
[2023-09-13] MEDS: Atorvastatin Calcium 10 MG Tablet PO (20:10)
[2023-09-14] VITALS (7 sets, daily range): BP systolic 99; BP diastolic 66; PULSE 70–80; RESP 18–20; TEMP 36.3; O2SAT 93–97
[2023-09-14] MEDS: Levothyroxine 150 MCG Tablet PO (06:21)
[2023-09-14] MEDS: Carbidopa/Levodopa 25/100 Tablet PO ×3 (06:21→17:21)
[2023-09-14] MEDS: Ipratropium/Albuterol Sulfate 3 ML AMPUL.NEB INHALATION ×3 (06:55→19:54)
[2023-09-14] MEDS: Budesonide Respules 0.5 MG/2 ML AMPUL.NEB. INHALATION ×2 (06:55→19:54)
[2023-09-14] MEDS: Furosemide 40 MG Tablet PO (07:46)
[2023-09-14] MEDS: Metoprolol(XL)Succ 25 MG Tablet 12.5 MG PO (07:46)
[2023-09-14] MEDS: Aspirin 81 MG TAB.CHEW PO (07:46)
[2023-09-14] MEDS: Pantoprazole Sodium 40 MG Tablet PO (07:46)
[2023-09-14] MEDS: Enoxaparin 40 MG/0.4 ML Syringe SC (07:46)
[2023-09-14] MEDS: Potassium Chloride Oral Tablet 20 MEQ PO (07:46)
[2023-09-14] MEDS: Clopidogrel Bisulfate 75 MG Tablet PO (07:46)
[2023-09-14] MEDS: Ezetimibe 10 MG Tablet PO (07:47)
[2023-09-14] MEDS: Menthol/Lanolin/Calamine/Znox 113 GM Tube 1 APPLIC TOPICAL (07:47)
--- NOTE | 2023-09-14 09:10 | CPS ---
Observed resident perform suctioning on self using sterile technique. Tolerated and performed procedure well. Suctioned for moderate amount of thick, yellow tenacious, sputum. Changed inner cannula without complications.
[2023-09-14] MEDS: Tamsulosin HCl 0.4 MG Capsule PO (17:21)
[2023-09-14] MEDS: Atorvastatin Calcium 10 MG Tablet PO (20:11)
[2023-09-15 06:35] VITALS: PULSE 72; RESP 20; O2SAT 94
[2023-09-15] MEDS: Ipratropium/Albuterol Sulfate 3 ML AMPUL.NEB INHALATION ×3 (06:35→19:21)
[2023-09-15] MEDS: Carbidopa/Levodopa 25/100 Tablet PO ×3 (06:53→17:07)
[2023-09-15] MEDS: Levothyroxine 150 MCG Tablet PO (06:53)
[2023-09-15 09:37] VITALS: BP 98/67; PULSE 69; RESP 18; TEMP 36.4; O2SAT 94
[2023-09-15 09:41] VITALS: PULSE 69
[2023-09-15] MEDS: Aspirin 81 MG TAB.CHEW PO (09:41)
[2023-09-15] MEDS: Pantoprazole Sodium 40 MG Tablet PO (09:41)
[2023-09-15] MEDS: Metoprolol(XL)Succ 25 MG Tablet 12.5 MG PO (09:41)
[2023-09-15] MEDS: Enoxaparin 40 MG/0.4 ML Syringe SC (09:41)
[2023-09-15] MEDS: Clopidogrel Bisulfate 75 MG Tablet PO (09:41)
[2023-09-15] MEDS: Potassium Chloride Oral Tablet 20 MEQ PO (09:41)
[2023-09-15] MEDS: Furosemide 40 MG Tablet PO (09:41)
[2023-09-15] MEDS: Ezetimibe 10 MG Tablet PO (09:42)
[2023-09-15] MEDS: Tuberculin,Purif.prot.deriv. 50 TU/ML Vial 0.1 ML ID (09:42)
[2023-09-15] MEDS: Menthol/Lanolin/Calamine/Znox 113 GM Tube 1 APPLIC TOPICAL (09:43)
[2023-09-15 09:51] VITALS: PULSE 84; RESP 18; O2SAT 95
[2023-09-15 11:31] VITALS: PULSE 70; RESP 18; O2SAT 93
[2023-09-15] MEDS: Tamsulosin HCl 0.4 MG Capsule PO (17:07)
[2023-09-15] MEDS: Budesonide Respules 0.5 MG/2 ML AMPUL.NEB. INHALATION (19:21)
[2023-09-15 19:22] VITALS: PULSE 70; RESP 18; O2SAT 95
[2023-09-15] MEDS: Atorvastatin Calcium 10 MG Tablet PO (19:57)
[2023-09-16 05:49] LABS: Absolute Lymphocyte Count 1.62 X10^3/uL (0.83-4.51); Absolute Neutrophil Count 4.1 X10^3/uL (2.0-7.7); Basophil# 0.03 X10^3/uL; Basophil% 0.5 % (0-1); Eosinophil# 0.12 X10^3/uL; Eosinophils% 1.8 % (0-5); Hematocrit 41.8 % (40-54); Hemoglobin 13.6 g/dL (13.0-16.5); Lymphocyte # 1.62 X10^3/ul (0.83-4.51); Lymphocyte % 24.8 % (19-41); Mean Corp Hgb Conc 32.5 g/dL (32-36); Mean Corpuscular Hgb 30.9 pg (27.0-32.0); Mean Platelet Vol. 11.9 fl (6.2-12.0); Monocyte# 0.58 X10^3/uL; Monocyte% 8.9 % (0-10); NRBC Flagged by Analyzer 0 % (0-5); Neutrophil # 4.14 X10^3/uL (2.7-7.7); Neutrophil % 63.4 % (47-70); Platelet Count 153 K/mm3 (150-450); RBC Distribution Width CV 14.2 % (11.6-14.6); RBC Distribution Width SD 49.9 fl (35.1-43.9); White Blood Count 6.5 K/mm3 (4.4-11.0)
[2023-09-16] MEDS: Levothyroxine 150 MCG Tablet PO (05:53)
[2023-09-16] MEDS: Carbidopa/Levodopa 25/100 Tablet PO ×3 (05:53→16:47)
[2023-09-16 06:01] LABS: Anion Gap 2 (5-15); BUN 18 mg/dL (7-18); BUN/Creat Ratio 18.2 RATIO (10-20); Calcium,Total 9.3 mg/dL (8.5-10.1); Chloride 106 mmol/L (98-107); Creatinine, Serum 0.99 mg/dL (0.70-1.30); EST Glomerular Filtration Rate 81 mL/min (>60); Est Glom Filt Rate - Afr Amer 98 mL/min (>60); Estimated Creatinine Clearance 83.27 ml/min; Glucose 94 mg/dL (74-106); Potassium 4.2 mmol/L (3.5-5.1); Sodium Level 140 mmol/L (136-145)
[2023-09-16 06:53] VITALS: O2SAT 6
[2023-09-16 07:35] VITALS: PULSE 60; RESP 16
[2023-09-16] MEDS: Ipratropium/Albuterol Sulfate 3 ML AMPUL.NEB INHALATION ×3 (07:35→19:30)
[2023-09-16] MEDS: Budesonide Respules 0.5 MG/2 ML AMPUL.NEB. INHALATION ×2 (07:35→19:30)
[2023-09-16 08:11] VITALS: PULSE 82
[2023-09-16] MEDS: Ezetimibe 10 MG Tablet PO (08:11)
[2023-09-16] MEDS: Pantoprazole Sodium 40 MG Tablet PO (08:11)
[2023-09-16] MEDS: Aspirin 81 MG TAB.CHEW PO (08:11)
[2023-09-16] MEDS: Enoxaparin 40 MG/0.4 ML Syringe SC (08:11)
[2023-09-16] MEDS: Metoprolol(XL)Succ 25 MG Tablet 12.5 MG PO (08:11)
[2023-09-16] MEDS: Clopidogrel Bisulfate 75 MG Tablet PO (08:11)
[2023-09-16] MEDS: Potassium Chloride Oral Tablet 20 MEQ PO (08:11)
[2023-09-16] MEDS: Furosemide 40 MG Tablet PO (08:11)
[2023-09-16] MEDS: Menthol/Lanolin/Calamine/Znox 113 GM Tube 1 APPLIC TOPICAL ×2 (08:12→22:48)
--- NOTE | 2023-09-16 08:37 | NURSING ---
Manager Diabetes Note; MDS for 09/14/2023 Complete
[2023-09-16 09:13] VITALS: BP 95/63; PULSE 82; RESP 18; TEMP 36.2; O2SAT 97
[2023-09-16 13:25] VITALS: PULSE 86; RESP 16; O2SAT 93
[2023-09-16] MEDS: Tamsulosin HCl 0.4 MG Capsule PO (16:47)
[2023-09-16 19:30] VITALS: PULSE 76; RESP 16; O2SAT 91
[2023-09-16] MEDS: Atorvastatin Calcium 10 MG Tablet PO (22:48)
[2023-09-17] MEDS: Carbidopa/Levodopa 25/100 Tablet PO ×3 (06:37→16:51)
[2023-09-17] MEDS: Levothyroxine 150 MCG Tablet PO (06:37)
[2023-09-17] MEDS: Budesonide Respules 0.5 MG/2 ML AMPUL.NEB. INHALATION ×2 (07:08→19:50)
[2023-09-17] MEDS: Ipratropium/Albuterol Sulfate 3 ML AMPUL.NEB INHALATION ×3 (07:08→19:50)
[2023-09-17 07:23] VITALS: PULSE 90; RESP 16; O2SAT 95
[2023-09-17 08:45] VITALS: BP 98/66; PULSE 81; RESP 18; TEMP 36.1; O2SAT 92
[2023-09-17] MEDS: Enoxaparin 40 MG/0.4 ML Syringe SC (08:48)
[2023-09-17] MEDS: Clopidogrel Bisulfate 75 MG Tablet PO (08:48)
[2023-09-17] MEDS: Potassium Chloride Oral Tablet 20 MEQ PO (08:48)
[2023-09-17] MEDS: Furosemide 40 MG Tablet PO (08:48)
[2023-09-17] MEDS: Aspirin 81 MG TAB.CHEW PO (08:48)
[2023-09-17 08:49] VITALS: PULSE 81
[2023-09-17] MEDS: Pantoprazole Sodium 40 MG Tablet PO (08:49)
[2023-09-17] MEDS: Ezetimibe 10 MG Tablet PO (08:49)
[2023-09-17] MEDS: Metoprolol(XL)Succ 25 MG Tablet 12.5 MG PO (08:49)
[2023-09-17] MEDS: Menthol/Lanolin/Calamine/Znox 113 GM Tube 1 APPLIC TOPICAL ×2 (08:52→20:58)
[2023-09-17 08:57] VITALS: PULSE 81; RESP 18; O2SAT 92
--- NOTE | 2023-09-17 09:22 | CASEMGMT ---
Addendum entered by Milvia Harris 09/17/23 16:44: SW spoke with pt and at bedside to answer further questions about supply and O2 needs at DC. RT entered room and assisted in clarifying pt's O2 need. RT explained the need of use specific to TCU, but that pt will only need the humidification system for home - no O2. SW spoke with Josiane at [facility] to cancel O2 order. SW received call from dtr with further questions on O2 order. SW educated to above and assured dtr all supplies are ordered and will be delivered to the pt's home tomorrow, 09/17, prior to DC 09/18. Dtr appreciative. Original Note: Social Work Pt very anxious about DC and ensuring all supplies are in order for pt at home. SERA spoke with pt to answer questions and reassure pt. Pt stated spoke with Jessica and Jessica is picking up home O2 by noon today. SW has O2 and supplies ordered through [facility] and will set DC date for 09/18. Pt agreeable and will update . SW updated [facility] for [facility]. to transport pt home. Plan: DC home with 09/18, [facility] C PT/OT/SN, trach supplies and O2 through [facility] Milvia Harris, CORPORATE COMMUNICATIONS MANAGER STAFFING RECRUITER
[2023-09-17 12:45] VITALS: PULSE 84; RESP 18; O2SAT 94
[2023-09-17 13:00] VITALS: BMI 29.9
[2023-09-17] MEDS: Tamsulosin HCl 0.4 MG Capsule PO (16:51)
[2023-09-17 19:55] VITALS: PULSE 78; RESP 16
--- NOTE | 2023-09-17 20:52 | DS.PCM_ITS ---
Providers Date of Admission: 09/07/23 Primary Care Physician: Dr. Cisco Dozier DO Reason For Visit: S/P TRACH BILATERAL VOCAL CORD PARALYSIS Diagnosis Discharge Diagnosis (1) Debility: Status: Acute Code(s): R53.81 - Other malaise (2) Vocal cord dysfunction: Status: Acute Code(s): J38.3 - Other diseases of vocal cords (3) Dysphagia: Status: Acute Code(s): R13.10 - Dysphagia, unspecified (4) Status post tracheostomy: Status: Acute Code(s): Z93.0 - Tracheostomy status (5) Parkinson's disease: Status: Chronic Code(s): G20 - Parkinson's disease (6) COPD (chronic obstructive pulmonary disease): Status: Chronic Code(s): J44.9 - Chronic obstructive pulmonary disease, unspecified (7) Asthma: Status: Chronic Code(s): J45.909 - Unspecified asthma, uncomplicated Qualifiers: Asthma complication type: with acute exacerbation Asthma persistence: p ersistent Asthma severity: severe Qualified Code(s): J45.51 - Severe persistent asthma with (acute) exacerbation (8) Hypothyroidism: Status: Acute Code(s): E03.9 - Hypothyroidism, unspecified (9) CAD (coronary artery disease): Status: Chronic Code(s): I25.10 - Atherosclerotic heart disease of [place] coronary artery without angina pectoris (10) Hyperlipidemia: Status: Chronic Code(s): E78.5 - Hyperlipidemia, unspecified (11) BPH (benign prostatic hyperplasia): Status: Acute Code(s): N40.0 - Benign prostatic hyperplasia without lower urinary tract symptoms (12) (HFpEF) heart failure with preserved ejection fraction: Status: Chronic Code(s): I50.30 - Unspecified diastolic (congestive) heart failure (13) GERD (gastroesophageal reflux disease): Status: Acute Code(s): K21.9 - Gastro-esophageal reflux disease without esophagitis Plan 63 year old male with below past medical history underwent tracheostomy 09/02/[address] Galvan for vocal cord dysfunction, postoperative course uncomplicated, admitted to TCU with debility, here for rehabilitation, strengthening, teaching/education prior to discharge home with . * Debility - PT/OT. * Pain - Tylenol 1000mg q6 prn pain (1-3), Oxycodone 5mg q4 prn pain (4-10). * Bowel - senna/colace 1 tablet bid, Magnesium citrate 300ml daily prn. * Adult immunization - Administer pneumonia vaccine, covid vaccine, flu vaccine as appropriate. * DVT prophylaxis - Lovenox 40mg sc daily. * Asthma/COPD - Fluticasone/Salmeterol 232-14 1 puff q12h, Incruse 1 puff daily, Albuterol 2.5mg neb q4 prn. * Coronary artery disease s/p stent - Metoprolol succinate 12.5mg daily, Plavix 75mg daily, Aspirin 81mg daily. * Hyperlipidemia - Atorvastatin 10mg qhs, Zetia 10mg daily. * Parkinson Disease - Sinemet 25/100mg 2 tablets tidac. * HFpEF - Metoprolol succinate 12.5mg daily, Furosemide 40mg daily. * Hypothyroidism - Levothyroxine 150mcg daily. * GERD - Pantoprazole 40mg daily. * Hypokalemia - KCL 20meq daily. * BPH - Tamsulosin 0.4mg daily. Medications at Discharge Home Medications levothyroxine 150 mcg tablet (Synthroid) 150 mcg PO DAILY thyroid 01/13/21 aspirin 81 mg chewable tablet (userADgents Chewable Low Dose Aspirin) 81 mg PO DAILY heart health 01/24/22 clopidogrel 75 mg tablet 75 mg PO DAILY anit platelet 01/24/22 ezetimibe 10 mg tablet 10 mg PO DAILY as prescribed 01/24/22 metoprolol succinate 25 mg tablet,extended release 24 hr 12.5 mg PO DAILY bp 01/24/22 rosuvastatin 5 mg tablet 5 mg PO DAILY cholesterol 01/24/22 tamsulosin 0.4 mg capsule 0.4 mg PO DAILY prostate 05/17/22 furosemide 40 mg tablet (Lasix) 40 mg PO DAILY diuretic 06/04/22 Handicap placard #1 ea 10/01/22 carbidopa 25 mg-levodopa 100 mg tablet 2 tab PO TID parkinsons #540 tabs 01/31/23 albuterol sulfate 90 mcg/actuation aerosol inhaler 1 puff inhalation Q8H PRN shortness of breath or wheezing 06/10/23 omeprazole 40 mg capsule,delayed release 40 mg PO DAILY gerd 06/18/23 budesonide 160 mcg-glycopyr 9 mcg-formot 4.8 mcg/actuation HFA inhaler (Breztri Aerosphere) 2 inh inhalation BID breathing #10.7 grams 07/09/23 potassium chloride 20 mEq tablet,extended release 20 meq PO DAILY supplement #90 tabs 07/10/23 Hospital Course Operations - (Tracheostomy.) Procedures None Summary of Care Provided Minutes Spent on Discharge: 35 Hospital Course: 63 year old male with below past medical history underwent tracheostomy 09/02/[address] Galvan for vocal cord dysfunction, postoperative course uncomplicated, admitted to TCU with debility, here for rehabilitation, strengthening, teaching/education prior to discharge home with . Discharge home with 09/19/2023, [facility] PT[facility]SN, Trach supplies, O2 through [employer]. Oxygen: I have reviewed the oxygen testing, and this patient qualifies for the home equipment and portability. The patient is mobile in the home and in the community. He has diagnosis of Asthma/COPD, vocal cord paralysis, status post tracheostomy. Physical Exam Const alert General Appearance: cooperative HEENT normocephalic HEENT Narrative: s/p Tracheostomy, trach collar. Eyes PERRL and EOMs intact bilaterally Neck supple, no JVD and no carotid bruits Resp normal respiratory effort, normal air movement and clear to auscultation bilaterally Cardio regular rate and regular rhythm GI normal to inspection, nondistended, normoactive bowel sounds, non-tender and non-distended Extremity normal capillary refill General Extremity: Negative for edema Skin no rashes or lesions noted General Skin Exam: no breakdown Psych affect normal Appearance: appropriate Weight / BMI Weight Weight: 91.796 kg Body Mass Index (BMI) 29.9 ABG / Lab / Microbiology Data 09/16/23 05:23 09/16/23 05:23 D/C Instructions Discharge Diet: No restrictions Discharge Activity: Return to Normal Activity Weight Bearing Status: Weight bearing as tolerated Call your doctor if you observe: Fever of 101 or Higher, Inability to urinate, Inability to have a bowel movement, Shortness of breath, Dizziness, Fainting spells, Swelling in the ankles, Chest pain and Uncontrolled pain Additional Instructions: Discharge home with 09/19/2023, [facility] PT/OT/SN, Trach supplies, O2 through [employer]. Oxygen: I have reviewed the oxygen testing, and this patient qualifies for the home equipment and portability. The patient is mobile in the home and in the community. He has diagnosis of Asthma/COPD, vocal cord paralysis, status post tracheostomy. Please Follow Up With: Hemant Galvan MD When: As scheduled. Meaningful Use Info Meaningful Use Meaningful Use Diagnoses (Choose all that apply): None applicable Ischemic Stroke Statin Dosing Therapy Reference: STATIN DOSE THERAPY REFERENCE: * Patients > 75 years receive moderate or high dose statin therapy. * Patients 75 years or YOUNGER should receive HIGH intensity statin dose unless contraindicated. You will be required to document reason for non-treatment if statin daily dose does not meet guidelines. HIGH DOSE STATIN THERAPY DAILY Atorvastatin > than or = to 40 mg Rosuvastatin > than or = to 20 mg Amlodipine + Atorvastatin > than or = to 2.5/40 mg Ezetimibe + Simvastatin 10/80 mg Simvastatin 80mg Discharge Plan Admission Admit Date/Time: 09/07/23 13:18 Primary Reason for Your Visit: Debility. Attending Provider: Eugene Brice Chi Primary Care Provider: Cisco Dozier Instructions Additional Instructions / Restrictions: Discharge home with 09/19/2023, [facility] PT/OT/SN, Trach supplies, O2 through [employer]. Oxygen: I have reviewed the oxygen testing, and this patient qualifies for the home equipment and portability. The patient is mobile in the home and in the community. He has diagnosis of Asthma/COPD, vocal cord paralysis, status post tracheostomy. Discharge Orders/Prescriptions Prescriptions: Continued tamsulosin 0.4 mg capsule 0.4 mg PO DAILY furosemide [Lasix] 40 mg tablet 40 mg PO DAILY carbidopa-levodopa 25-100 mg tablet 2 tab PO TID Qty: 540 2RF albuterol sulfate 90 mcg/actuation HFA aerosol inhaler 1 puff inhalation Q8H PRN (Reason: shortness of breath or wheezing) omeprazole 40 mg capsule,delayed release(DR/EC) 40 mg PO DAILY Breztri Aerosphere 160-9-4.8 mcg/actuation HFA aerosol inhaler 2 inh inhalation BID Qty: 10.7 3RF levothyroxine [Synthroid] 150 mcg tablet 150 mcg PO DAILY clopidogrel 75 mg tablet 75 mg PO DAILY aspirin [Luis Alberto Chewable Aspirin] 81 mg tablet,chewable 81 mg PO DAILY Patient Comments: 1 tablet by mouth once a day metoprolol succinate 25 mg tablet extended release 24 hr 12.5 mg PO DAILY ezetimibe 10 mg tablet 10 mg PO DAILY rosuvastatin 5 mg tablet 5 mg PO DAILY potassium chloride 20 mEq tablet extended release 20 meq PO DAILY Qty: 90 3RF Discontinued tizanidine 2 mg tablet 2 mg PO Q6H PRN (Reason: muscle spasticity) oxycodone 5 mg tablet 5 mg PO Q6H PRN (Reason: pain (1-10)) guaifenesin [Mucus Relief ER] 1,200 mg Tablet Extended Release 12hr 1,200 mg PO BID 7 Days Qty: 14 0RF prednisone 20 mg tablet 40 mg PO DAILY 5 Days Qty: 10 0RF ipratropium-albuterol 0.5 mg-3 mg(2.5 mg base)/3 mL solution for nebulization 3 ml inhalation Q4H PRN PRN (Reason: SOB &/OR WHEEZING) Qty: 180 11RF No Action (DME) Handicap placard See Rx Instructions .Route .MEDSUPPLY Qty: 1 0RF Rx Instructions: Expiration: 10/01/2025 Referrals / Follow Up: Cisco Dozier DO [Primary Care Provider] - Disposition Disposition (needs filled in before D/C Order can be placed): Home Health Service
[2023-09-17] MEDS: Atorvastatin Calcium 10 MG Tablet PO (20:58)
[2023-09-18] MEDS: Levothyroxine 150 MCG Tablet PO (06:06)
[2023-09-18] MEDS: Carbidopa/Levodopa 25/100 Tablet PO ×3 (06:06→16:50)
[2023-09-18 07:00] VITALS: PULSE 76; RESP 18; O2SAT 90
[2023-09-18] MEDS: Budesonide Respules 0.5 MG/2 ML AMPUL.NEB. INHALATION ×2 (07:00→21:10)
[2023-09-18] MEDS: Ipratropium/Albuterol Sulfate 3 ML AMPUL.NEB INHALATION ×3 (07:00→21:10)
[2023-09-18 09:05] VITALS: BP 99/62; PULSE 83; RESP 16; TEMP 36.4; O2SAT 94
[2023-09-18] MEDS: Aspirin 81 MG TAB.CHEW PO (09:06)
[2023-09-18 09:07] VITALS: PULSE 83
[2023-09-18] MEDS: Furosemide 40 MG Tablet PO (09:07)
[2023-09-18] MEDS: Metoprolol(XL)Succ 25 MG Tablet 12.5 MG PO (09:07)
[2023-09-18] MEDS: Potassium Chloride Oral Tablet 20 MEQ PO (09:07)
[2023-09-18] MEDS: Pantoprazole Sodium 40 MG Tablet PO (09:07)
[2023-09-18] MEDS: Enoxaparin 40 MG/0.4 ML Syringe SC (09:07)
[2023-09-18] MEDS: Clopidogrel Bisulfate 75 MG Tablet PO (09:07)
[2023-09-18] MEDS: Menthol/Lanolin/Calamine/Znox 113 GM Tube 1 APPLIC TOPICAL (09:08)
[2023-09-18] MEDS: Ezetimibe 10 MG Tablet PO (09:08)
--- NOTE | 2023-09-18 10:10 | CPS ---
changed pt inner cannula for trac care and suctioned
--- NOTE | 2023-09-18 10:40 | NURSING ---
pt & updated regarding positive covid case on floor
[2023-09-18 13:15] VITALS: PULSE 74; RESP 18
--- NOTE | 2023-09-18 15:40 | CASEMGMT ---
Social Work BIMS () and PHQ-2 () completed for MDS assessment. Milvia Harris MSW AUDIO NARRATOR
[2023-09-18] MEDS: Tamsulosin HCl 0.4 MG Capsule PO (16:50)
--- NOTE | 2023-09-18 18:49 | NURSING ---
pt walked up to nurses station stating that [facility] did not deliver inner cannula's, trach collars, Normal saline, or humidification trach collars. texted Milvia social and political studies professor and she notified [facility]. Kal, from [facility] called & stated he delivered the supplies but stated he did not have inner cannula's (not placed on ordernot sure why), velcro trach collar (on back order) or saline. He spoke with Heydi, [facility] manager contact and she is to deal with it in morning. Kal states he delivered 2 humidification trach masks for now, suction kits, & trach cleaning kits. updated pt. will update social and political studies professor.
[2023-09-18] MEDS: Atorvastatin Calcium 10 MG Tablet PO (20:11)
[2023-09-18 20:33] VITALS: PULSE 88; RESP 16; O2SAT 94
[2023-09-18 21:10] VITALS: PULSE 64; RESP 20; O2SAT 98
[2023-09-19] MEDS: Levothyroxine 150 MCG Tablet PO (06:45)
[2023-09-19] MEDS: Carbidopa/Levodopa 25/100 Tablet PO (06:45)
[2023-09-19 06:50] VITALS: PULSE 70; RESP 18; O2SAT 94
[2023-09-19] MEDS: Budesonide Respules 0.5 MG/2 ML AMPUL.NEB. INHALATION (06:50)
[2023-09-19] MEDS: Ipratropium/Albuterol Sulfate 3 ML AMPUL.NEB INHALATION (06:50)
[2023-09-19 06:54] VITALS: PULSE 78; RESP 18; O2SAT 93
[2023-09-19 08:35] VITALS: BP 102/64; PULSE 82; RESP 18; TEMP 37; O2SAT 95
[2023-09-19 08:36] VITALS: PULSE 82
[2023-09-19] MEDS: Aspirin 81 MG TAB.CHEW PO (08:36)
[2023-09-19] MEDS: Furosemide 40 MG Tablet PO (08:36)
[2023-09-19] MEDS: Metoprolol(XL)Succ 25 MG Tablet 12.5 MG PO (08:36)
[2023-09-19] MEDS: Potassium Chloride Oral Tablet 20 MEQ PO (08:36)
[2023-09-19] MEDS: Ezetimibe 10 MG Tablet PO (08:37)
[2023-09-19] MEDS: Pantoprazole Sodium 40 MG Tablet PO (08:37)
[2023-09-19] MEDS: Enoxaparin 40 MG/0.4 ML Syringe SC (08:37)
[2023-09-19] MEDS: Clopidogrel Bisulfate 75 MG Tablet PO (08:38)
--- NOTE | 2023-09-19 09:07 | CASEMGMT ---
Addendum entered by Milvia Harris 09/19/23 12:14: SERA spoke with Stephon, Director. Pt's inner cannulas and trach collar were drop shipped and expected to arrive today, though there is a saline shortage and cannot be fulfilled. SW spoke with pt and at [facility]. Explained the conversation and outcome with [facility]. offered for pt to remain until tomorrow for supplies to arrive or if pt still wanted to DC today as planned. Pt and both stated they are comfortable with DC today. Pt's collar was changed yesterday and he has several inner cannulas being sent home with him, along with saline bottles. SW agreed and will contact [facility] to determine if they carry saline. appreciative. SW phoned [facility], whom confirmed they do have the ordered 10 saline flush bottles. SW provided a script. Phoned to update and to [employer] bottles today. Original Note: Social Work SW received communication from [facility] nursing on 09/17 at 1830 that called nurse's station to state issues with [facility] delivery of trach supplies. stated the inner cannulas were out of stock, the saline bottles and velcro trach collars were not delivered. SW phoned the on-call service at [facility], whom will relay the issues to the chief librarian branch or department the following business day. SERA also sent secure email to follow up to Natanael Soliz chief librarian branch or department, and included Director of Care Management. Will await outcome. Milvia Harris, DEMETRIS VYAS
--- NOTE | 2023-09-19 09:42 | MDS.RN ---
Information for the MDS was obtained from review of the clinical record, interview of resident, staff, and direct observation of resident?s care.
[2023-09-19 11:10] VITALS: BP 105/65; PULSE 71; RESP 18; TEMP 37; O2SAT 94
--- NOTE | 2023-09-19 11:32 | NURSING ---
Pt discharges from facility, transports home with @1309. No comments/concerns at this time.
== END 2023-09-19 11:33 | disposition home health service (06) | DRG 949 ==
PROVIDERS: Admitting Provider Family Medicine Geriatric Medicine; PCP Family Medicine; Referring Provider Family Medicine Geriatric Medicine; Visit Provider Family Medicine Geriatric Medicine
DX: Z48.813 Encounter for surgical aftercare following surgery on the respiratory system (principal); J45.51 Severe persistent asthma with (acute) exacerbation; N13.8 Other obstructive and reflux uropathy; I50.32 Chronic diastolic (congestive) heart failure; J38.02 Paralysis of vocal cords and larynx, bilateral; Z93.0 Tracheostomy status; G20.A1 Parkinson's disease without dyskinesia, without mention of fluctuations; I11.0 Hypertensive heart disease with heart failure; J44.9 Chronic obstructive pulmonary disease, unspecified; E89.0 Postprocedural hypothyroidism; K21.9 Gastro-esophageal reflux disease without esophagitis; I25.10 Atherosclerotic heart disease of native coronary artery without angina pectoris; E78.00 Pure hypercholesterolemia, unspecified; G47.33 Obstructive sleep apnea (adult) (pediatric); E87.6 Hypokalemia; Z87.891 Personal history of nicotine dependence; R13.12 Dysphagia, oropharyngeal phase; N40.1 Benign prostatic hyperplasia with lower urinary tract symptoms; Z79.52 Long term (current) use of systemic steroids; Z79.02 Long term (current) use of antithrombotics/antiplatelets; Z79.82 Long term (current) use of aspirin; Z79.899 Other long term (current) drug therapy; Z79.890 Hormone replacement therapy; Z86.718 Personal history of other venous thrombosis and embolism
CPT/HCPCS: 31720; 36415; 80048; 85025; 87811; 92507; 92523; 92526; 92610; 94640; 97110; 97129; 97162; 97165; 97530; 97535; 97802

== ENCOUNTER 2023-10-11 18:19 | Emergency (ER) | payer MEDICARE, BC, SELFPAY ==
[2023-10-11 18:19] VITALS: BP 146/75; PULSE 83; RESP 16; TEMP 37.2; O2SAT 95
[2023-10-11 18:24] VITALS: BP 143/65; PULSE 67; RESP 15; TEMP 37.2; O2SAT 98
[2023-10-11 18:40] VITALS: BMI 29.6
[2023-10-11 19:07] LABS: Absolute Neutrophil Count 11.8 X10^3/uL (2.0-7.7); Basophil# 0.03 X10^3/uL; Basophil% 0.2 % (0-1); Eosinophil# 0.01 X10^3/uL; Eosinophils% 0.1 % (0-5); Hematocrit 41.5 % (40-54); Hemoglobin 13.6 g/dL (13.0-16.5); Lymphocyte % 7.2 % (19-41); Mean Corp Hgb Conc 32.8 g/dL (32-36); Mean Corpuscular Hgb 30.6 pg (27.0-32.0); Mean Corpuscular Volume 93.5 fL (80-94); Mean Platelet Vol. 12.4 fl (6.2-12.0); Monocyte# 0.97 X10^3/uL; NRBC Flagged by Analyzer 0 % (0-5); Neutrophil # 11.78 X10^3/uL (2.7-7.7); Platelet Count 127 K/mm3 (150-450); RBC Distribution Width CV 14.1 % (11.6-14.6); Red Blood Count 4.44 M/mm3 (4.6-6.2); White Blood Count 13.9 K/mm3 (4.4-11.0)
[2023-10-11 19:18] LABS: Anion Gap 9 (5-15); BUN 28 mg/dL (7-18); BUN/Creat Ratio 21.5 RATIO (10-20); Calcium,Total 9.3 mg/dL (8.5-10.1); Chloride 103 mmol/L (98-107); EST Glomerular Filtration Rate 59 mL/min (>60); Est Glom Filt Rate - Afr Amer 71 mL/min (>60); Estimated Creatinine Clearance 63.19 ml/min; Glucose 106 mg/dL (74-106); Potassium 3.7 mmol/L (3.5-5.1); Sodium Level 138 mmol/L (136-145)
[2023-10-11 19:24] VITALS: BP 94/62; PULSE 84; RESP 16; TEMP 37.6; O2SAT 94
[2023-10-11 19:35] LABS: Mucous, Urine 0 SEEN /hpf (<or=2+); Squamous Epithelial Cells - UA 0 SEEN /hpf (0-5)
[2023-10-11 19:46] LABS: Color, Urine Amber (Yellow); Glucose, Dipstick Normal (Normal); Ketone-Dipstick 15 mg/dl (Negative); Leukocyte Esterase-Dipstick 500 /ul (Negative); Nitrite-Dipstick Negative (Negative); Occult Blood-Urine 250 /ul (Negative); Protein-Dipstick 100 mg/dl (Negative); Specific Gravity, Urine 1.015 (1.002-1.030); Urine Bilirubin Dipstick Negative (Negative); Urine Clarity Cloudy (Clear); Urine Urobilinogen Normal (Normal)
[2023-10-11 19:53] LABS: Red Blood Cells-Urine > 100 SEEN /hpf (0-5)
[2023-10-11 19:56] LABS: White Blood Cells 5-10 SEEN /hpf (0-5)
[2023-10-11 19:57] LABS: Bacteria 2+ /hpf (None Seen)
--- NOTE | 2023-10-11 20:15 | EDS_ITS ---
HPI History of Present Illness Chief Complaint: Complaint Detail of Chief Complaint: Patient presents with hematuria, dysuria Informant: patient and spouse/S.O. Onset/Context/Timing Onset: Days (October 06) Context: Sudden Onset Timing: Intermittent and Waxes and wanes Quality: Initially dysuria now dysuria and hematuria Location: Current Severity: Moderate Maximum Severity: Moderate Worsened by: Urination Relieved by: Not urinating Associated Symptoms Associated Symptoms: thought he was not as awake. Narrative Narrative: Patient is a 63-year-old male. He developed urinary tract symptoms on Saturday, October 06. Contacted his urologist when he had gross hematuria on Saturday. He was prescribed Macrobid 100 mg twice daily for 14 days. Patient took his first dose this morning. There is a problem with transmission of prescription to pharmacy. Patient denies fever or chills. Patient denies nausea, vomit or diarrhea. Patient denies flank pain or low back pain. Patient denies headache, visual, ocular auditory symptoms. He does have a history of BPH. He denies history of prostate cancer. Prior similar symptoms: Yes Recent Illness/Hospitalization: No PFSH PFSH Medical History Acute dyspnea Acute exacerbation of chronic obstructive pulmonary disease Fall Debility BPH (benign prostatic hyperplasia) GERD (gastroesophageal reflux disease) Dysphagia Vocal cord dysfunction (HFpEF) heart failure with preserved ejection fraction Carotid artery disease Dizziness Hypokalemia Hypoxia Asthma-COPD overlap syndrome Hyperlipidemia COPD (chronic obstructive pulmonary disease) Carotid artery stenosis Osteoarthritis of right hip Angioedema Diastolic dysfunction Throat clearing Moist mucous membranes of ear, nose, and throat Cough Oral thrush Carotid artery, internal, occlusion MARYJO (obstructive sleep apnea) Smoking greater than 30 pack years Chronic diastolic (congestive) heart failure Orthostatic hypotension Fatigue Hypersomnia Parkinson's disease Mild cognitive impairment Benign localized hyperplasia of prostate with urinary obstruction and lower urinary tract symptoms Weak urinary stream Urinary frequency Urge incontinence of urine Tobacco abuse counseling Tobacco abuse Shortness of breath on exertion Snoring Postoperative hypothyroidism Observed sleep apnea Nocturia Laryngeal spasm Hypertension Hypercholesterolemia Hoarseness of voice Elevated brain natriuretic peptide (BNP) level Elevated troponin level Fungal infection Change in voice CAD (coronary artery disease) Breathing difficult Bradycardia ACS (acute coronary syndrome) Asthma History of nuclear stress test Acute deep vein thrombosis of lower extremity Abnormal CT of the chest Dyspnea Wears glasses Alcohol use Arthritis DVT (deep venous thrombosis) Gastric reflux Smoker Cricopharyngeal dysphagia Parasomnia Bilateral hearing loss Spasm of vocal cords High cholesterol Hypothyroidism Home Medications ?Medication ?Instructions ?Recorded ?Last Taken ?Type levothyroxine 150 mcg tablet 150 mcg PO DAILY thyroid 01/13/21 09/07/23 History (Synthroid) aspirin 81 mg chewable tablet 81 mg PO DAILY heart health 01/24/22 09/07/23 History (Luis Alberto Chewable Low Dose Aspirin) tamsulosin 0.4 mg capsule 0.4 mg PO DAILY prostate 05/17/22 09/07/23 History Handicap placard #1 ea 10/01/22 Unknown Rx albuterol sulfate 90 mcg/actuation 1 puff inhalation Q8H PRN 06/10/23 Unknown History aerosol inhaler shortness of breath or wheezing potassium chloride 20 mEq 20 meq PO DAILY supplement #90 tabs 07/10/23 Unknown Rx tablet,extended release budesonide 1 mg/2 mL suspension 1 mg (2 mL) inhalation BID #120 mL 09/18/23 Unknown Rx for nebulization ipratropium 0.5 mg-albuterol 3 mg 3 ml inhalation Q4H PRN PRN SOB 09/18/23 Unknown Rx (2.5 mg base)/3 mL nebulization &/OR WHEEZING #360 mL soln atropine 1 % eye drops See Rx Instructions buccal DAILY 10/01/23 Unknown Rx #10 mL carbidopa 25 mg-levodopa 100 mg 2 tab PO TID parkinsons #540 tabs 10/01/23 Unknown Rx tablet clopidogrel 75 mg tablet 75 mg PO DAILY anit platelet #90 10/10/23 Unknown Rx tabs ezetimibe 10 mg tablet 10 mg PO DAILY as prescribed #90 10/10/23 Unknown Rx tabs furosemide 40 mg tablet (Lasix) 40 mg PO DAILY diuretic #90 tabs 10/10/23 Unknown Rx metoprolol succinate 25 mg 12.5 mg (1/2 x 25 mg) PO DAILY bp 10/10/23 Unknown Rx tablet,extended release 24 hr #90 tabs rosuvastatin 5 mg tablet 5 mg PO DAILY cholesterol #90 tabs 10/10/23 Unknown Rx Allergy/AdvReac Type Severity Reaction Status Date / Time vibegron (From [facility]) Allergy Severe Rash Verified 10/11/23 18:20 Family History Father COPD (chronic obstructive pulmonary disease) Emphysema lung Myocardial infarction Mother Parkinsons disease Malignant melanoma Surgical History Status post tracheostomy 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 artery (~06/06/21) H/O cardiac catheterization (~06/06/21) Hx of arthroscopy of knee H/O knee surgery H/O thyroidectomy Social History household members: spouse Smoking Status: Former smoker Tobacco: How many years used: 45 second hand exposure: Yes alcohol intake: former substance use type: does not use caffeine: Yes (daily) Type: coffee Number of servings: 2 what type of physical activity do you participate in: walking seatbelt use: sometimes ROS ROS ED Constitutional Constitutional ED: Denies chills, fever(s), subjective or sweats Eyes Eyes: Denies blurry vision or change in vision ENT ENT ED: Denies rhinorrhea or sore throat Cardiovascular Cardiovascular: Denies chest pain or palpitations Respiratory/Chest Respiratory/Chest: Denies cough, dyspnea or dyspnea on exertion Gastrointestinal Gastrointestinal: Denies abdominal pain, nausea or vomiting Genitourinary Genitourinary ED: Reports dysuria, hematuria and urinary frequency Musculoskeletal Musculoskeletal: Denies arthralgias, back pain, myalgias or neck pain Integumentary Denies rash Neurologic Neurologic: Reports weakness; Denies headache(s) Hematologic/Lymphatic Hematologic/Lymphatic: Denies easy bleeding or easy bruising EXAM Physical Exam Const Vital Signs: 10/11/23 18:19 10/11/23 18:24 Temperature 99 F 99 F Temperature Source Oral Temporal Pulse Rate 83 67 Respiratory Rate 16 15 Blood Pressure 146/75 H 143/65 H Blood Pressure Mean 98 91 Pulse Ox 95 98 Oxygen Delivery Method Room Air Room Air Positive well nourished and well developed General Appearance ED: well developed and NAD; Negative for cyanotic, diaphoretic or pallor HEENT Reports moist mucous membranes HEENT Narrative: HEENT is grossly unremarkable Eyes PERRL and EOMs intact bilaterally General Eye ED: Negative for pale conjunctiva or scleral icterus Chest Wall inspection of chest normal and palpation of chest normal Resp normal respiratory effort and clear to auscultation bilaterally Cardio regular rate, regular rhythm, S1 normal heart sound, S2 normal heart sound and no murmurs GI normal to inspection, nondistended, normoactive bowel sounds, non-tender, non- distended and no masses; Negative for hepatosplenomegaly Back/Spine no CVA tenderness Extremity normal to inspection Neuro oriented x3, CN's II-XII intact bilaterally and no sensory deficits noted Sensorium / Orientation: alert Motor Exam: strength 5/5 throughout Psych mental status grossly normal Skin no rashes or lesions noted, no wounds and skin turgor normal General Skin Exam: Negative for jaundice or pallor MDM MDM MDM Narrative Medical decision making narrative: With reported altered mental status will undergo workup to determine patient is safe for outpatient treatment versus inpatient treatment for cystitis. History is not consistent with renal ureterolithiasis. Patient has no history of cancer. History & Record Review Additional record(s) reviewed:: Prior ED visit and Prior labs Lab Data Attestation: I reviewed the patient's lab results. Lab results narrative: White count is slightly elevated 13.9 with shift. There is no bandemia. Basic metabolic panel is normal. UA reveals greater than 100 RBCs, 5-10 WBCs and 2+ bacteria. Culture was sent. Labs: Laboratory Results - last 24 hr 10/11/23 10/11/23 18:59 19:32 WBC 13.9 H RBC 4.44 L Hgb 13.6 Hct 41.5 MCV 93.5 MCH 30.6 MCHC 32.8 RDW Std Deviation 49.0 H RDW Coeff of Nick 14.1 Plt Count 127 L MPV 12.4 H Immature Gran % (Auto) 0.500 Neut % (Auto) 85.0 H Lymph % (Auto) 7.2 L [place] % (Auto) 7.0 Eos % (Auto) 0.1 Baso % (Auto) 0.2 Absolute Neuts (auto) 11.8 H Absolute Lymphs (auto) 1.00 Nucleated RBC % 0 Sodium 138 Potassium 3.7 Chloride 103 Carbon Dioxide 26.0 Anion Gap 9 BUN 28 H Creatinine 1.30 Estim Creat Clear Calc 63.19 Est GFR (MDRD) Af Amer 71 Est GFR (MDRD) Non-Af 59 L BUN/Creatinine Ratio 21.5 H Glucose 106 Calcium 9.3 Urine Color Dilia Urine Clarity Cloudy Urine pH 9.0 Ur Specific [place] 1.015 Urine Protein 100 H Urine Glucose (UA) Normal Urine Ketones 15 H Urine Occult Blood 250 H Urine Nitrite Negative Urine Bilirubin Negative Urine Urobilinogen Normal Ur Leukocyte Esterase 500 H Urine RBC > 100 SEEN Urine WBC 5-10 SEEN Ur Squamous Epith Cells 0 SEEN Urine Bacteria 2+ Urine Mucus 0 SEEN Treatment and Re-Evaluation :: Patient was informed of results at 2017. He is sitting upright. He is alert oriented. He is stable and appropriate for outpatient therapy. Discharge Plan Triage Chief Complaint: Complaint ED Provider: Noah Morgan Dx/Rx/DC Orders Clinical Impression: Acute hemorrhagic cystitis, CAD (coronary artery disease), Hypercholesterolemia, MARYJO (obstructive sleep apnea), COPD (chronic obstructive pulmonary disease), Elevated blood pressure reading with diagnosis of hypertension Instructions: ED Bladder Infection, Male (Adult) Prescriptions: No Action tamsulosin 0.4 mg capsule 0.4 mg PO DAILY carbidopa-levodopa 25-100 mg tablet 2 tab PO TID Qty: 540 3RF atropine 1 % drops See Rx Instructions buccal DAILY Qty: 10 3RF Rx Instructions: Take 1 to 2 drops buccally daily albuterol sulfate 90 mcg/actuation HFA aerosol inhaler 1 puff inhalation Q8H PRN (Reason: shortness of breath or wheezing) clopidogrel 75 mg tablet 75 mg PO DAILY Qty: 90 3RF ezetimibe 10 mg tablet 10 mg PO DAILY Qty: 90 3RF furosemide [Lasix] 40 mg tablet 40 mg PO DAILY Qty: 90 3RF metoprolol succinate 25 mg tablet extended release 24 hr 12.5 mg PO DAILY Qty: 90 3RF rosuvastatin 5 mg tablet 5 mg PO DAILY Qty: 90 3RF levothyroxine [Synthroid] 150 mcg tablet 150 mcg PO DAILY aspirin [Luis Alberto Chewable Aspirin] 81 mg tablet,chewable 81 mg PO DAILY Patient Comments: 1 tablet by mouth once a day (DME) Handicap placard See Rx Instructions .Route .MEDSUPPLY Qty: 1 0RF Rx Instructions: Expiration: 10/01/2025 potassium chloride 20 mEq tablet extended release 20 meq PO DAILY Qty: 90 3RF ipratropium-albuterol 0.5 mg-3 mg(2.5 mg base)/3 mL solution for nebulization 3 ml inhalation Q4H PRN PRN (Reason: SOB &/OR WHEEZING) Qty: 360 11RF budesonide 1 mg/2 mL suspension for nebulization 1 mg inhalation BID Qty: 120 11RF Primary Care Provider: Cisco Dozier Referrals: Cisco Dozier, [Primary Care Provider] - 3-5 Days if not improving Activity Restrictions/Additional Instructions: Take your antibiotic until gone. Return if temperature greater than 100, unable to eat or drink anything or if your notes you are not oriented. Print Language: Faroese Disposition Disposition: Home, Self Care
[2023-10-11 20:19] VITALS: BP 97/66; PULSE 82; RESP 18; TEMP 37.4; O2SAT 93
== END 2023-10-11 20:26 | disposition home or self-care (01) ==
PROVIDERS: Emergency Provider Emergency Medicine; PCP Family Medicine; Visit Provider Emergency Medicine
DX: N30.01 Acute cystitis with hematuria (principal); I11.0 Hypertensive heart disease with heart failure; I50.32 Chronic diastolic (congestive) heart failure; J44.9 Chronic obstructive pulmonary disease, unspecified; G47.33 Obstructive sleep apnea (adult) (pediatric); E78.00 Pure hypercholesterolemia, unspecified; I25.10 Atherosclerotic heart disease of native coronary artery without angina pectoris; Z87.891 Personal history of nicotine dependence; K21.9 Gastro-esophageal reflux disease without esophagitis; Z79.02 Long term (current) use of antithrombotics/antiplatelets; Z79.899 Other long term (current) drug therapy
CPT/HCPCS: 80048; 81001; 85025; 99283; A4216

== ENCOUNTER 2023-10-21 21:53 | Inpatient (IN) | payer MEDICARE, BC, SELFPAY ==
[2023-10-21 21:54] VITALS: BP 101/57; PULSE 89; RESP 16; TEMP 37.9; O2SAT 93
[2023-10-21 21:57] VITALS: BMI 28.3
[2023-10-21 23:10] VITALS: BP 90/59; PULSE 84; RESP 20; TEMP 37.3; O2SAT 90
[2023-10-21 23:32] LABS: Absolute Lymphocyte Count 0.81 X10^3/uL (0.83-4.51); Absolute Neutrophil Count 8.4 X10^3/uL (2.0-7.7); Basophil# 0.02 X10^3/uL; Basophil% 0.2 % (0-1); Hematocrit 42.7 % (40-54); Hemoglobin 13.8 g/dL (13.0-16.5); Lymphocyte # 0.81 X10^3/ul (0.83-4.51); Lymphocyte % 8.1 % (19-41); Mean Corp Hgb Conc 32.3 g/dL (32-36); Mean Corpuscular Hgb 30.7 pg (27.0-32.0); Mean Corpuscular Volume 95.1 fL (80-94); Mean Platelet Vol. 10.7 fl (6.2-12.0); Monocyte# 0.72 X10^3/uL; Monocyte% 7.2 % (0-10); NRBC Flagged by Analyzer 0 % (0-5); Neutrophil # 8.43 X10^3/uL (2.7-7.7); Neutrophil % 84.1 % (47-70); Platelet Count 216 K/mm3 (150-450); RBC Distribution Width SD 49.1 fl (35.1-43.9); Red Blood Count 4.49 M/mm3 (4.6-6.2)
[2023-10-21 23:50] VITALS: O2SAT 96
[2023-10-21 23:50] LABS: BNP,B-Type NATRIURETIC PEPTIDE 75.5 pg/mL (0-100)
[2023-10-21 23:51] LABS: Lactic Acid 1.5 mmol/L (0.4-1.9)
[2023-10-21 23:54] VITALS: O2SAT 88
[2023-10-21] MEDS: 0.9% Normal Saline (500mL Bag) 500 ML 999 ML IV (23:55)
[2023-10-21 23:58] LABS: AST(SGOT) 22 U/L (15-37); Alanine Aminotransfer ALT/SGPT 15 U/L (16-61); Albumin, Serum 3.4 g/dL (3.2-5.0); Alkaline Phosphatase 82 U/L (45-117); Anion Gap 9 (5-15); BUN 35 mg/dL (7-18); BUN/Creat Ratio 21.9 RATIO (10-20); Bilirubin, Direct 0.26 mg/dL (0.00-0.30); Calcium,Total 8.8 mg/dL (8.5-10.1); Chloride 97 mmol/L (98-107); EST Glomerular Filtration Rate 46 mL/min (>60); Est Glom Filt Rate - Afr Amer 56 mL/min (>60); Globulin 3.7 g/dL (2.2-4.2); Glucose 114 mg/dL (74-106); Magnesium 2.2 mg/dL (1.6-2.6); Potassium 3.5 mmol/L (3.5-5.1); Protein, Total 7.1 g/dL (6.4-8.2); Sodium Level 133 mmol/L (136-145); Thyroid Stim Hormone (TSH) 0.168 uIU/mL (0.358-3.740)
[2023-10-22] VITALS (13 sets, daily range): BP systolic 92–138; BP diastolic 56–88; PULSE 62–85; RESP 18–22; TEMP 36.6–37.7; O2SAT 94–99; BMI 28.3
--- NOTE | 2023-10-22 | RAD_ITS ---
EXAM: XR CHEST, 2 VIEWS CLINICAL INDICATION: cough TECHNIQUE: Frontal and lateral views of the chest. COMPARISON: August 13, 2023. FINDINGS: LUNGS AND PLEURAL SPACES: Atelectasis versus infiltrate at the right lung base. No other airspace disease. No pleural effusion or pneumothorax. HEART: Unremarkable. Cardiac silhouette not enlarged. MEDIASTINUM: Central airways and mediastinal contour are unremarkable. BONES/JOINTS: Degenerative changes of the spine. No acute fracture. SOFT TISSUES: Unremarkable. TUBES, LINES AND DEVICES: Tracheostomy tube in place. RAD/Chest PA and Lateral IMPRESSION: Atelectasis versus infiltrate at the right lung base. No other acute disease. Electronically Signed: Edgardo Reagan MD at 0:44 EDT ,
[2023-10-22 01:06] LABS: Color, Urine Brown (Yellow); Glucose, Dipstick Normal (Normal); Ketone-Dipstick 5 mg/dl (Negative); Leukocyte Esterase-Dipstick 25 /ul (Negative); Nitrite-Dipstick Positive (Negative); Occult Blood-Urine 250 /ul (Negative); Protein-Dipstick 100 mg/dl (Negative); Specific Gravity, Urine 1.015 (1.002-1.030); Urine Clarity Cloudy (Clear); Urine Urobilinogen 1 mg/dl (Normal)
[2023-10-22] MEDS: 0.9% Normal Saline (500mL Bag) 500 ML 999 ML IV (01:17)
[2023-10-22] MEDS: dexAMETHasone 10 MG/ML Vial IV (01:17)
[2023-10-22 01:31] LABS: Bacteria 1+ /hpf (None Seen); Fine Granular Cast- Urine 0-5 SEEN /lpf (0-5); Hyaline Cast 5-10 SEEN /lpf (0-5); Mucous, Urine 1+ /hpf (<or=2+); Red Blood Cells-Urine > 100 SEEN /hpf (0-5); Squamous Epithelial Cells - UA 0-5 SEEN /hpf (0-5); Urine Bilirubin Dipstick 1 mg/dL (Negative); White Blood Cells 10-25 SEEN /hpf (0-5)
--- NOTE | 2023-10-22 01:40 | EX.ED.DYSGE1 ---
HPI History of Present Illness Chief Complaint: General Illness Informant: patient and family Narrative Narrative: Patient is a 63-year-old male with past medical history of hypertension hyperlipidemia BPH urinary retention and COPD. He had a tracheostomy performed at [facility] in August. Since that time his pulse ox has run 95% or higher on room air and he has not required any supplemental oxygen. He has been following with urology because he has an enlarged prostate which is leading to urinary retention and now causing recurrent UTIs. Patient and family state he has been on antibiotic secondary to his recent UTIs but despite taking it he has been having increased weakness. He states that this evening he was walking to the bathroom and felt so weak and lightheaded that as he sat down on the toilet he actually broke the toilet. He denies any known sick contacts but with his worsening fatigue and shortness of breath as well as recent bouts of diarrhea there was concern for systemic infection or secondary infection and he was brought in for evaluation [facility] Medical History (Reviewed 10/17/23 @ 15:10 by Karen Lora LEAD PHARMACY TECHNICIAN, LEAD PHARMACY TECHNICIAN-C) Acute dyspnea Acute exacerbation of chronic obstructive pulmonary disease Fall Debility BPH (benign prostatic hyperplasia) GERD (gastroesophageal reflux disease) Dysphagia Vocal cord dysfunction (HFpEF) heart failure with preserved ejection fraction Carotid artery disease Dizziness Hypokalemia Hypoxia Asthma-COPD overlap syndrome Hyperlipidemia COPD (chronic obstructive pulmonary disease) Carotid artery stenosis Osteoarthritis of right hip Angioedema Diastolic dysfunction Throat clearing Moist mucous membranes of ear, nose, and throat Cough Oral thrush Carotid artery, internal, occlusion MARYJO (obstructive sleep apnea) Smoking greater than 30 pack years Chronic diastolic (congestive) heart failure Orthostatic hypotension Fatigue Hypersomnia Parkinson's disease Mild cognitive impairment Benign localized hyperplasia of prostate with urinary obstruction and lower urinary tract symptoms Weak urinary stream Urinary frequency Urge incontinence of urine Tobacco abuse counseling Tobacco abuse Shortness of breath on exertion Snoring Postoperative hypothyroidism Observed sleep apnea Nocturia Laryngeal spasm Hypertension Hypercholesterolemia Hoarseness of voice Elevated brain natriuretic peptide (BNP) level Elevated troponin level Fungal infection Change in voice CAD (coronary artery disease) Breathing difficult Bradycardia ACS (acute coronary syndrome) Asthma History of nuclear stress test Acute deep vein thrombosis of lower extremity Abnormal CT of the chest Dyspnea Wears glasses Alcohol use Arthritis DVT (deep venous thrombosis) Gastric reflux Smoker Cricopharyngeal dysphagia Parasomnia Bilateral hearing loss Spasm of vocal cords High cholesterol Hypothyroidism Home Medications ?Medication ?Instructions ?Recorded ?Last Taken ?Type levothyroxine 150 mcg tablet 150 mcg PO DAILY thyroid 01/13/21 09/07/23 History (Synthroid) aspirin 81 mg chewable tablet 81 mg PO DAILY heart health 01/24/22 09/07/23 History (Luis Alberto Chewable Low Dose Aspirin) tamsulosin 0.4 mg capsule 0.4 mg PO DAILY prostate 05/17/22 09/07/23 History Handicap placard #1 ea 10/01/22 Unknown Rx potassium chloride 20 mEq 20 meq PO DAILY supplement #90 tabs 07/10/23 Unknown Rx tablet,extended release ipratropium 0.5 mg-albuterol 3 mg 3 ml inhalation Q4H PRN PRN SOB 09/18/23 Unknown Rx (2.5 mg base)/3 mL nebulization &/OR WHEEZING #360 mL soln atropine 1 % eye drops See Rx Instructions buccal DAILY 10/01/23 Unknown Rx #10 mL carbidopa 25 mg-levodopa 100 mg 2 tab PO TID parkinsons #540 tabs 10/01/23 Unknown Rx tablet clopidogrel 75 mg tablet 75 mg PO DAILY anit platelet #90 10/10/23 Unknown Rx tabs ezetimibe 10 mg tablet 10 mg PO DAILY as prescribed #90 10/10/23 Unknown Rx tabs furosemide 40 mg tablet (Lasix) 40 mg PO DAILY diuretic #90 tabs 10/10/23 Unknown Rx metoprolol succinate 25 mg 12.5 mg (1/2 x 25 mg) PO DAILY bp 10/10/23 Unknown Rx tablet,extended release 24 hr #90 tabs rosuvastatin 5 mg tablet 5 mg PO DAILY cholesterol #90 tabs 10/10/23 Unknown Rx budesonide 1 mg/2 mL suspension 1 mg (2 mL) inhalation BID #120 mL 10/17/23 Unknown Rx for nebulization nitrofurantoin 100 mg PO MOWEFR 10/21/23 Unknown History monohydrate/macrocrystals 100 mg capsule Allergy/AdvReac Type Severity Reaction Status Date / Time vibegron (From [place]) Allergy Severe Rash Verified 10/21/23 21:57 Family History (Reviewed 10/17/23 @ 15:10 by Karen Lora LEAD PHARMACY TECHNICIAN, LEAD PHARMACY TECHNICIAN-C) Father COPD (chronic obstructive pulmonary disease) Emphysema lung Myocardial infarction Mother Parkinsons disease Malignant melanoma Surgical History (Reviewed 10/17/23 @ 15:10 by Karen Lora LEAD PHARMACY TECHNICIAN, LEAD PHARMACY TECHNICIAN-C) Status post tracheostomy 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 artery (~06/06/21) H/O cardiac catheterization (~06/06/21) Hx of arthroscopy of knee H/O knee surgery H/O thyroidectomy Social History (Reviewed 10/17/23 @ 15:10 by Karen Lora LEAD PHARMACY TECHNICIAN, LEAD PHARMACY TECHNICIAN-C) household members: spouse Smoking Status: Former smoker Tobacco: How many years used: 45 second hand exposure: Yes alcohol intake: former substance use type: does not use caffeine: Yes (daily) Type: coffee Number of servings: 2 what type of physical activity do you participate in: walking seatbelt use: sometimes ROS ROS ED Constitutional Constitutional ED: Reports chills, fever(s) and subjective Eyes Eyes: Denies blurry vision or change in vision ENT ENT ED: Denies sore throat Cardiovascular Cardiovascular: Denies chest pain Respiratory/Chest Respiratory/Chest: Reports cough and dyspnea Gastrointestinal Gastrointestinal: Reports diarrhea; Denies abdominal pain, nausea or vomiting Genitourinary Genitourinary ED: Reports hematuria Musculoskeletal Musculoskeletal: Reports myalgias Integumentary Denies rash Neurologic Neurologic: Reports weakness Hematologic/Lymphatic Hematologic/Lymphatic: Denies easy bleeding or easy bruising EXAM Physical Exam Const Vital Signs: 10/21/23 21:54 10/21/23 23:00 10/21/23 23:10 Temperature 100.2 F H 99.2 F H Temperature Source Oral Oral Pulse Rate 89 84 Respiratory Rate 16 20 H Respiratory Effort Normal Non-Labored Respiratory Pattern Normal Blood Pressure 101/57 L 90/59 L Blood Pressure Mean 71 69 Pulse Ox 93 90 Oxygen Delivery Method Room Air Room Air Oxygen Flow Rate (L/min) 10/21/23 23:50 10/21/23 23:54 10/22/23 00:00 Temperature Temperature Source Pulse Rate Respiratory Rate Respiratory Effort Respiratory Pattern Blood Pressure Blood Pressure Mean Pulse Ox 96 88 95 Oxygen Delivery Method Trach Collar Room Air Trach Collar Oxygen Flow Rate (L/min) 3 10/22/23 00:00 10/22/23 01:24 10/22/23 01:35 Temperature 99.2 F H 99.2 F H 99.9 F H Temperature Source Oral Temporal Pulse Rate 85 75 78 Respiratory Rate 22 H 21 H 21 H Respiratory Effort Respiratory Pattern Blood Pressure 94/71 103/73 110/72 Blood Pressure Mean 78 83 84 Pulse Ox 95 99 99 Oxygen Delivery Method Trach Collar Trach Collar Oxygen Flow Rate (L/min) 3 Positive well nourished, well developed and obese General Appearance ED: well developed; Negative for pallor Nutritional Appearance: obese HEENT Reports dry mucous membranes HEENT Narrative: Mucous membranes are dry and tacky No tongue or lip swelling no oral lesions no airway edema or compromise There is cobblestoning noted in the posterior pharynx consistent with sinus drainage No secondary changes in the posterior pharynx to suggest infection Mouth ED: Yes dry mucous membranes Mouth: dry mucous membranes Eyes PERRL and EOMs intact bilaterally General Eye ED: Negative for pale conjunctiva or scleral icterus Neck supple Neck Narrative: Tracheostomy in place without surrounding soft tissue changes to suggest infection No crepitance noted Resp Resp Narrative: Patient is tachypneic with slight accessory muscle use Breath sounds are diminished throughout with diffuse rhonchi noted Cardio regular rate and regular rhythm GI non-tender, non-distended and no masses GI Narrative: Abdomen is soft nontender and nondistended with hyperactive bowel sounds. No voluntary guarding or rigidity or pulsatile mass. No fluid wave noted Auscultation: hyperactive bowel sounds Palpation: soft Extremity Extremity Narrative: Trace to +1 pitting edema to the bilateral lower extremities Negative Homans' sign bilaterally Neuro oriented x3, CN's II-XII intact bilaterally and no sensory deficits noted Sensorium / Orientation: alert Motor Exam: strength 5/5 throughout Psych mental status grossly normal Skin no rashes or lesions noted Skin Narrative: Skin turgor is increased General Skin Exam: Negative for jaundice or pallor MDM MDM MDM Narrative Medical decision making narrative: Patient arrived to the ER with a low-grade temperature and his room air pulse ox was 88 to 90%. Patient and family state that ever since he had his tracheostomy his pulse ox has been 95% and he has had no need for supplemental oxygen. With report he is following with urology secondary to urinary retention and recurrent infection there is concern for repeat UTI leading to urosepsis. However with his breath sounds as well as fatigue and loose stool there is concern for viral infection such as COVID versus influenza versus RSV. Patient also could have potential intestinal infection such as colitis or intestinal abscess. Secondary to this a viral swab was obtained with chest x-ray and basic blood work. Labs show no clinically significant findings with a white count at 10 and normal lactic acid. His proBNP is normal at 75 going against CHF exacerbation as well. Liver enzymes are normal going against biliary colic. The patient's chest x-ray does show changes concerning for developing pneumonia which would correlate with his hypoxia however his COVID test is also positive indicating this would be COVID-pneumonia and therefore there is no need for antibiotics. His urine sample however which was a cath sample did show changes consistent with retained infection. Therefore the urine will be sent for culture and also be started on Cipro. At this time the patient is requiring supplemental oxygen to keep his pulse ox greater than 90% which she does not normally need and does not have available at home. There is also concern that his inflammation from COVID will worsen over the next few days leading to worsening respiratory issues. Therefore I do not feel it is safe for him to return home and the hospitalist was contacted and does agree to accept the patient for admission at this time History & Record Review Discussion w/independent historian: Patient and Family Lab Data Attestation: I reviewed the patient's lab results. Labs: Laboratory Results - last 24 hr 10/21/23 10/22/23 23:17 00:58 WBC 10.0 RBC 4.49 L Hgb 13.8 Hct 42.7 MCV 95.1 H MCH 30.7 MCHC 32.3 RDW Std Deviation 49.1 H RDW Coeff of Nick 14.0 Plt Count 216 MPV 10.7 Immature Gran % (Auto) 0.400 Neut % (Auto) 84.1 H Lymph % (Auto) 8.1 L Barnwell % (Auto) 7.2 Eos % (Auto) 0.0 Baso % (Auto) 0.2 Absolute Neuts (auto) 8.4 H Absolute Lymphs (auto) 0.81 L Nucleated RBC % 0 Sodium 133 L Potassium 3.5 Chloride 97 L Carbon Dioxide 27.0 Anion Gap 9 BUN 35 H Creatinine 1.60 H Est GFR (MDRD) Af Amer 56 L Est GFR (MDRD) Non-Af 46 L BUN/Creatinine Ratio 21.9 H Glucose 114 H Lactic Acid 1.5 Calcium 8.8 Magnesium 2.2 Total Bilirubin 0.60 Direct Bilirubin 0.26 AST 22 ALT 15 L Alkaline Phosphatase 82 B-Natriuretic Peptide 75.5 Total Protein 7.1 Albumin 3.4 Globulin 3.7 TSH 0.168 L Urine Color Brown Urine Clarity Cloudy Urine pH 6.0 Ur Specific [place] 1.015 Urine Protein 100 H Urine Glucose (UA) Normal Urine Ketones 5 H Urine Occult Blood 250 H Urine Nitrite Positive H Urine Bilirubin 1 H Urine Urobilinogen 1 H Ur Leukocyte Esterase 25 H Urine RBC > 100 SEEN Urine WBC 10-25 SEEN Ur Squamous Epith Cells 0-5 SEEN Urine Bacteria 1+ Hyaline Casts 5-10 SEEN Fine Granular Casts 0-5 SEEN Urine Mucus 1+ Radiography Diagnostic Testing: Clinical Impression(s) from Imaging Studies Chest X-Ray 10/22/23 00:00 IMPRESSION: Atelectasis versus infiltrate at the right lung base. No other acute disease. Electronically Signed: Edgardo Reagan MD at 0:44 EDT , Chest x-ray as interpreted by the emergency medicine physician reveals atelectasis versus developing infiltrate in the right lower lobe Management Discussion w/another healthcare provider: Hospitalist Discharge Plan Dx/Rx/DC Orders Clinical Impression: Hypoxia, COVID-19, UTI (urinary tract infection), Hypothyroidism, Hypertension, BPH (benign prostatic hyperplasia) Disposition Disposition: Acute Care Hospital [facility]
[2023-10-22] MEDS: Ciprofloxacin 500 MG Tablet PO ×3 (02:00→22:51)
--- NOTE | 2023-10-22 02:13 | HP.PCM_ITS ---
[facility] - General General Date of Admission: 10/22/23 Date of Service: 10/22/23 Chief Complaint: Shortness of breath HPI Narrative FREDDIE DUMONT, is a 63 M who presents to the emergency room with chief complaint of shortness of breath. Patient has a complex past medical history but most relevant significant past medical history for tracheostomy tube, recent urinary tract infection for which she has been treated the past week on Macrobid. Over the past week the patient has developed worsening shortness of breath and is requiring oxygen to maintain a saturation of greater than 90% at this time. He tested positive for COVID-19 here today. He has received a dose of Decadron and responded well to oxygen therapy. He also complains of diarrhea about 6 times a day for the last several days and ongoing dysuria. Urinalysis was positive for nitrites and bacteria. Ciprofloxacin was started in the emergency room. Patient will be admitted for hypoxia associated to COVID-19 infection. He will also receive treatment for his acute cystitis. [facility] Medical History (Reviewed 10/17/23 @ 15:10 by Karen Lora [employer], [employer]C) Acute dyspnea Acute exacerbation of chronic obstructive pulmonary disease Fall Debility BPH (benign prostatic hyperplasia) GERD (gastroesophageal reflux disease) Dysphagia Vocal cord dysfunction (HFpEF) heart failure with preserved ejection fraction Carotid artery disease Dizziness Hypokalemia Hypoxia Asthma-COPD overlap syndrome Hyperlipidemia COPD (chronic obstructive pulmonary disease) Carotid artery stenosis Osteoarthritis of right hip Angioedema Diastolic dysfunction Throat clearing Moist mucous membranes of ear, nose, and throat Cough Oral thrush Carotid artery, internal, occlusion MARYJO (obstructive sleep apnea) Smoking greater than 30 pack years Chronic diastolic (congestive) heart failure Orthostatic hypotension Fatigue Hypersomnia Parkinson's disease Mild cognitive impairment Benign localized hyperplasia of prostate with urinary obstruction and lower urinary tract symptoms Weak urinary stream Urinary frequency Urge incontinence of urine Tobacco abuse counseling Tobacco abuse Shortness of breath on exertion Snoring Postoperative hypothyroidism Observed sleep apnea Nocturia Laryngeal spasm Hypertension Hypercholesterolemia Hoarseness of voice Elevated brain natriuretic peptide (BNP) level Elevated troponin level Fungal infection Change in voice CAD (coronary artery disease) Breathing difficult Bradycardia ACS (acute coronary syndrome) Asthma History of nuclear stress test Acute deep vein thrombosis of lower extremity Abnormal CT of the chest Dyspnea Wears glasses Alcohol use Arthritis DVT (deep venous thrombosis) Gastric reflux Smoker Cricopharyngeal dysphagia Parasomnia Bilateral hearing loss Spasm of vocal cords High cholesterol Hypothyroidism Home Medications ?Medication ?Instructions ?Recorded ?Last Taken ?Type levothyroxine 150 mcg tablet 150 mcg PO DAILY thyroid 01/13/21 09/07/23 History (Synthroid) aspirin 81 mg chewable tablet 81 mg PO DAILY heart health 01/24/22 09/07/23 History (Luis Alberto Chewable Low Dose Aspirin) tamsulosin 0.4 mg capsule 0.4 mg PO DAILY prostate 05/17/22 09/07/23 History Handicap placard #1 ea 10/01/22 Unknown Rx potassium chloride 20 mEq 20 meq PO DAILY supplement #90 tabs 07/10/23 Unknown Rx tablet,extended release ipratropium 0.5 mg-albuterol 3 mg 3 ml inhalation Q4H PRN PRN SOB 09/18/23 Unknown Rx (2.5 mg base)/3 mL nebulization &/OR WHEEZING #360 mL soln atropine 1 % eye drops See Rx Instructions buccal DAILY 10/01/23 Unknown Rx #10 mL carbidopa 25 mg-levodopa 100 mg 2 tab PO TID parkinsons #540 tabs 10/01/23 Unknown Rx tablet clopidogrel 75 mg tablet 75 mg PO DAILY anit platelet #90 10/10/23 Unknown Rx tabs ezetimibe 10 mg tablet 10 mg PO DAILY as prescribed #90 10/10/23 Unknown Rx tabs furosemide 40 mg tablet (Lasix) 40 mg PO DAILY diuretic #90 tabs 10/10/23 Unknown Rx metoprolol succinate 25 mg 12.5 mg (1/2 x 25 mg) PO DAILY bp 10/10/23 Unknown Rx tablet,extended release 24 hr #90 tabs rosuvastatin 5 mg tablet 5 mg PO DAILY cholesterol #90 tabs 10/10/23 Unknown Rx budesonide 1 mg/2 mL suspension 1 mg (2 mL) inhalation BID #120 mL 10/17/23 Unknown Rx for nebulization nitrofurantoin 100 mg PO MOWEFR 10/21/23 Unknown History monohydrate/macrocrystals 100 mg capsule Allergy/AdvReac Type Severity Reaction Status Date / Time vibegron (From [place]) Allergy Severe Rash Verified 10/21/23 21:57 Family History (Reviewed 10/17/23 @ 15:10 by Karen Lora [employer], [employer]C) Father COPD (chronic obstructive pulmonary disease) Emphysema lung Myocardial infarction Mother Parkinsons disease Malignant melanoma Surgical History (Reviewed 10/17/23 @ 15:10 by Karen Lora [employer], [employer]C) Status post tracheostomy 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 artery (~06/06/21) H/O cardiac catheterization (~06/06/21) Hx of arthroscopy of knee H/O knee surgery H/O thyroidectomy Social History (Reviewed 10/17/23 @ 15:10 by Karen Lora [employer], [employer]C) household members: spouse Smoking Status: Former smoker Tobacco: How many years used: 45 second hand exposure: Yes alcohol intake: former substance use type: does not use caffeine: Yes (daily) Type: coffee Number of servings: 2 what type of physical activity do you participate in: walking seatbelt use: sometimes ROS Constitutional Constitutional: Denies chills or fever(s) Eyes Eyes: Denies blurry vision ENT HEENT: Denies abnormal hearing Cardiovascular Cardiovascular: Denies chest pain Respiratory/Chest Respiratory/Chest: Reports shortness of breath at rest and wheezing Gastrointestinal Gastrointestinal: Reports diarrhea Genitourinary Genitourinary: Reports dysuria, urinary frequency and urinary urgency Musculoskeletal Musculoskeletal: Denies back pain Integumentary Integumentary: Denies dry skin Neurologic Neurologic: Denies abnormal gait Psychiatric Psychiatric: Denies anxiety Vital Signs Vital Signs Vital Signs: 10/21/23 21:54 10/21/23 23:00 10/21/23 23:10 Temperature 100.2 F H 99.2 F H Temperature Source Oral Oral Pulse Rate 89 84 Respiratory Rate 16 20 H Respiratory Effort Normal Non-Labored Respiratory Pattern Normal Blood Pressure 101/57 L 90/59 L Blood Pressure Mean 71 69 Pulse Ox 93 90 Oxygen Delivery Method Room Air Room Air Oxygen Flow Rate (L/min) 10/21/23 23:50 10/21/23 23:54 10/22/23 00:00 Temperature Temperature Source Pulse Rate Respiratory Rate Respiratory Effort Respiratory Pattern Blood Pressure Blood Pressure Mean Pulse Ox 96 88 95 Oxygen Delivery Method Trach Collar Room Air Trach Collar Oxygen Flow Rate (L/min) 3 10/22/23 00:00 10/22/23 01:24 10/22/23 01:35 Temperature 99.2 F H 99.2 F H 99.9 F H Temperature Source Oral Temporal Pulse Rate 85 75 78 Respiratory Rate 22 H 21 H 21 H Respiratory Effort Respiratory Pattern Blood Pressure 94/71 103/73 110/72 Blood Pressure Mean 78 83 84 Pulse Ox 95 99 99 Oxygen Delivery Method Trach Collar Trach Collar Oxygen Flow Rate (L/min) 3 10/22/23 02:00 Temperature 100 F H Temperature Source Oral Pulse Rate 72 Respiratory Rate 21 H Respiratory Effort Respiratory Pattern Blood Pressure 103/66 Blood Pressure Mean 78 Pulse Ox 98 Oxygen Delivery Method Trach Collar Oxygen Flow Rate (L/min) 3 Physical Exam Const alert and no apparent distress General Appearance: cooperative HEENT normocephalic and head/scalp atraumatic Eyes PERRL Neck no lymphadenopathy Lymph Lymphatic: no lymphadenopathy noted Resp normal respiratory effort Auscultation: rhonchi and wheezes Cardio regular rate, regular rhythm, S1 normal heart sound, S2 normal heart sound and no murmurs GI normal to inspection, nondistended, normoactive bowel sounds Extremity normal capillary refill Skin General Skin Exam: turgor normal Neuro no focal motor deficits and no sensory deficits noted Psych thought process normal and affect normal Appearance: appropriate Results Lab / Micro Data 10/21/23 23:17 10/21/23 23:17 Labs: Laboratory Results - last 24 hr 10/21/23 23:17: WBC 10.0, RBC 4.49 L, Hgb 13.8, Hct 42.7, MCV 95.1 H, MCH 30.7, MCHC 32.3, RDW Std Deviation 49.1 H, RDW Coeff of Nick 14.0, Plt Count 216, MPV 10.7, Immature Gran % (Auto) 0.400, Neut % (Auto) 84.1 H, Lymph % (Auto) 8.1 L, [place] % (Auto) 7.2, Eos % (Auto) 0.0, Baso % (Auto) 0.2, Absolute Neuts (auto) 8.4 H, Absolute Lymphs (auto) 0.81 L, Nucleated RBC % 0, Sodium 133 L, Potassium 3.5, Chloride 97 L, Carbon Dioxide 27.0, Anion Gap 9, BUN 35 H, Creatinine 1.60 H, Est GFR (MDRD) Af Amer 56 L, Est GFR (MDRD) Non-Af 46 L, BUN/Creatinine Ratio 21.9 H, Glucose 114 H, Lactic Acid 1.5, Calcium 8.8, Magnesium 2.2, Total Bilirubin 0.60, Direct Bilirubin 0.26, AST 22, ALT 15 L, Alkaline Phosphatase 82, B-Natriuretic Peptide 75.5, Total Protein 7.1, Albumin 3.4, Globulin 3.7, T SH 0.168 L 10/22/23 00:58: Urine Color Brown, Urine Clarity Cloudy, Urine pH 6.0, Ur Specific [place] 1.015, Urine Protein 100 H, Urine Glucose (UA) Normal, Urine Ketones 5 H, Urine Occult Blood 250 H, Urine Nitrite Positive H, Urine Bilirubin 1 H, Urine Urobilinogen 1 H, Ur Leukocyte Esterase 25 H, Urine RBC > 100 SEEN, Urine WBC 10-25 SEEN, Ur Squamous Epith Cells 0-5 SEEN, Urine Bacteria 1+, Hyaline Casts 5-10 SEEN, Fine Granular Casts 0-5 SEEN, Urine Mucus 1+ Micro: Microbiology 10/21/23 23:36 Mucosa - Nose SARS-CoV-2, Influenza & RSV (PCR) - Final Imaging Radiology Impression Chest X-Ray 10/22/23 00:00 IMPRESSION: Atelectasis versus infiltrate at the right lung base. No other acute disease. Electronically Signed: Edgardo Reagan MD at 0:44 EDT , Abdomen/Pelvis CT 10/22/23 23:21 IMPRESSION: 1. Findings are concerning for cystitis. Correlate with urinalysis. 2. Distal esophagitis suspected. 3. Possible proctitis/anusitis. 4. Ancillary findings as above. Electronically Signed: Edgardo Reagan MD at 1:06 EDT , Assessment & Plan Assessment/Plan (1) UTI (urinary tract infection): (2) COVID-19: (3) Hypoxia: (4) GERD (gastroesophageal reflux disease): (5) BPH (benign prostatic hyperplasia): (6) Status post tracheostomy: PLAN: 1 COVID-19 infection with hypoxia?admit patient to general medical floor Place patient on isolation per protocol, oxygen supportive care along with Decadron treatment. Rule repeat CBC BMP in the a.m. history of tracheostomy will have respiratory therapy continue to manage and maintain airway. 2. Urinary tract infection?continue ciprofloxacin 500 p.o. twice daily 3. GERD?continue PPI 4. BPH?continue routine home medications 5. DVT prophylaxis?low molecular weight heparin Charges/Coding Visit Charges Inpatient E&M: 73232 Init Hosp L2
[2023-10-22] MEDS: 0.9% Normal Saline (1000mL) 1,000 ML 75 ML IV (03:13)
[2023-10-22] MEDS: Carbidopa/Levodopa 25/100 Tablet PO ×3 (06:42→17:31)
[2023-10-22] MEDS: Levothyroxine 150 MCG Tablet PO (06:43)
[2023-10-22 07:43] LABS: Absolute Lymphocyte Count 0.85 X10^3/uL (0.83-4.51); Absolute Neutrophil Count 5.9 X10^3/uL (2.0-7.7); Basophil# 0.01 X10^3/uL; Basophil% 0.1 % (0-1); Hematocrit 41.8 % (40-54); Hemoglobin 13.5 g/dL (13.0-16.5); Lymphocyte # 0.85 X10^3/ul (0.83-4.51); Lymphocyte % 12.2 % (19-41); Mean Corp Hgb Conc 32.3 g/dL (32-36); Mean Corpuscular Hgb 30.8 pg (27.0-32.0); Mean Corpuscular Volume 95.2 fL (80-94); Mean Platelet Vol. 10.8 fl (6.2-12.0); Monocyte# 0.19 X10^3/uL; Monocyte% 2.7 % (0-10); NRBC Flagged by Analyzer 0 % (0-5); Neutrophil % 84.7 % (47-70); Platelet Count 185 K/mm3 (150-450); RBC Distribution Width CV 14.2 % (11.6-14.6); RBC Distribution Width SD 50.3 fl (35.1-43.9); Red Blood Count 4.39 M/mm3 (4.6-6.2)
[2023-10-22 08:03] LABS: Anion Gap 5 (5-15); BUN 25 mg/dL (7-18); BUN/Creat Ratio 21.7 RATIO (10-20); Calcium,Total 8.8 mg/dL (8.5-10.1); Chloride 101 mmol/L (98-107); Creatinine, Serum 1.15 mg/dL (0.70-1.30); EST Glomerular Filtration Rate 68 mL/min (>60); Est Glom Filt Rate - Afr Amer 82 mL/min (>60); Estimated Creatinine Clearance 69.95 ml/min; Glucose 120 mg/dL (74-106); Potassium 4.3 mmol/L (3.5-5.1); Sodium Level 135 mmol/L (136-145); Thyroid Stim Hormone (TSH) 0.168 uIU/mL (0.358-3.740)
--- NOTE | 2023-10-22 08:09 | PN.HOSP_ITS ---
Reason for Visit Reason for Visit: Shortness of breath Subjective Subjective Mr. Cole is a 63-year-old white male who presented to the emergency department [facility] on 10/22/2023 with a chief complaint of shortness of breath. Patient does have a complex past medical history with current tracheostomy tube in place. He recently was treated for a urinary tract infection with Macrobid however he still complaining of dysuria along with his shortness of breath. He typically is not oxygen dependent but was found to have oxygen saturations of 88% on room air in the emergency department. He was placed on supplemental oxygen at that time with improvement in his oxygen saturations. He also complained of diarrhea with stooling about 6 times a day for several days. Vital signs on presentation showed a temperature of 100.2, heart rate 89, respirate 16-20, blood pressure was 101/57 and oxygen saturation was 88% on room air. CBC was unremarkable other than a left shift with a CD4 0.1% neutrophilia. His white count was normal. Chemistry panel showed mild hyponatremia with a sodium of 133, MICHAEL with a BUN of 35 and a serum creatinine of 1.6 (baseline creatinine is 0.95-1.2.). His LFTs were unremarkable. BNP was 75.5. Chest x-ray showed some atelectasis in the right lung base but no other acute disease and CT of the abdomen pelvis was performed due to his diarrhea and demonstrated findings concerning for cystitis, suspected distal esophagitis and possible proctitis/Anusitis. His UA was suggestive of infection. His COVID-19 test was positive. He was given Decadron and ciprofloxacin in the emergency department and Decadron for his COVID and the Cipro for probable UTI. He was admitted to the medical floor for ongoing care. Patient states he had already is feeling better. Has been weaned to room air and ambulating with minimal difficulty. Awaiting therapy to see him however he is with nursing and doing fairly decent at this point. He is a bit unsteady on his feet and does seem to have some bradykinesia related to his Parkinson's. He is hopeful to be able to go home tomorrow. I told him we would reevaluate things tomorrow morning and see how he did with therapy today to determine if he would be able to go home. Objective Data Objective Data Vital Signs: Vital Signs Temp Pulse Resp BP Pulse Ox O2 Del Method O2 Flow Rate 99.6 F H 72 22 H 126/77 H 95 Trach Collar 6 10/22/23 02:52 10/22/23 02:52 10/22/23 02:52 10/22/23 02:52 10/22/23 07:25 10/22/23 02:52 10/22/23 07:25 FiO2 28 10/22/23 07:25 Oxygen Flow Rate (L/min) 6 Oxygen Delivery Method Trach Collar Weight: 87 kg Body Mass Index (BMI) 28.3 Intake & Output: Intake and Output for Last 24 Hours 10/20/23 10/21/23 10/22/23 23:59 23:59 23:59 Intake Total 1100 / 1100 Balance 1100 / 1100 Lab / Micro Data 10/22/23 07:02 10/22/23 07:02 Labs: Laboratory Results - last 24 hr 10/21/23 23:17: WBC 10.0, RBC 4.49 L, Hgb 13.8, Hct 42.7, MCV 95.1 H, MCH 30.7, MCHC 32.3, RDW Std Deviation 49.1 H, RDW Coeff of Nick 14.0, Plt Count 216, MPV 10.7, Immature Gran % (Auto) 0.400, Neut % (Auto) 84.1 H, Lymph % (Auto) 8.1 L, [place] % (Auto) 7.2, Eos % (Auto) 0.0, Baso % (Auto) 0.2, Absolute Neuts (auto) 8.4 H, Absolute Lymphs (auto) 0.81 L, Nucleated RBC % 0, Sodium 133 L, Potassium 3.5, Chloride 97 L, Carbon Dioxide 27.0, Anion Gap 9, BUN 35 H, Creatinine 1.60 H, Est GFR (MDRD) Af Amer 56 L, Est GFR (MDRD) Non-Af 46 L, BUN/Creatinine Ratio 21.9 H, Glucose 114 H, Lactic Acid 1.5, Calcium 8.8, Magnesium 2.2, Total Bilirubin 0.60, Direct Bilirubin 0.26, AST 22, ALT 15 L, Alkaline Phosphatase 82, B-Natriuretic Peptide 75.5, Total Protein 7.1, Albumin 3.4, Globulin 3.7, T SH 0.168 L 10/22/23 00:58: Urine Color Brown, Urine Clarity Cloudy, Urine pH 6.0, Ur Specific [place] 1.015, Urine Protein 100 H, Urine Glucose (UA) Normal, Urine Ketones 5 H, Urine Occult Blood 250 H, Urine Nitrite Positive H, Urine Bilirubin 1 H, Urine Urobilinogen 1 H, Ur Leukocyte Esterase 25 H, Urine RBC > 100 SEEN, Urine WBC 10-25 SEEN, Ur Squamous Epith Cells 0-5 SEEN, Urine Bacteria 1+, Hyaline Casts 5-10 SEEN, Fine Granular Casts 0-5 SEEN, Urine Mucus 1+ 10/22/23 07:02: WBC 7.0, RBC 4.39 L, Hgb 13.5, Hct 41.8, MCV 95.2 H, MCH 30.8, MCHC 32.3, RDW Std Deviation 50.3 H, RDW Coeff of Nick 14.2, Plt Count 185, MPV 10.8, Immature Gran % (Auto) 0.300, Neut % (Auto) 84.7 H, Lymph % (Auto) 12.2 L, [place] % (Auto) 2.7, Eos % (Auto) 0.0, Baso % (Auto) 0.1, Absolute Neuts (auto) 5.9, Absolute Lymphs (auto) 0.85, Nucleated RBC % 0, Sodium 135 L, Potassium 4.3, Chloride 101, Carbon Dioxide 29.0, Anion Gap 5, BUN 25 H, Creatinine 1.15, Estim Creat Clear Calc 69.95, Est GFR (MDRD) Af Amer 82, Est GFR (MDRD) Non-Af 68, BUN/Creatinine Ratio 21.7 H, Glucose 120 H, Calcium 8.8, TSH 0.168 L Micro: Microbiology 10/21/23 23:36 Mucosa - Nose SARS-CoV-2, Influenza & RSV (PCR) - Final Radiography Diagnostic Testing: Radiology Impression Chest X-Ray 10/22/23 00:00 IMPRESSION: Atelectasis versus infiltrate at the right lung base. No other acute disease. Electronically Signed: Edgardo Reagan MD at 0:44 EDT , Abdomen/Pelvis CT 10/22/23 23:21 IMPRESSION: 1. Findings are concerning for cystitis. Correlate with urinalysis. 2. Distal esophagitis suspected. 3. Possible proctitis/anusitis. 4. Ancillary findings as above. Electronically Signed: Edgardo Reagan MD at 1:06 EDT Reading Location ID and State: [facility][note 3] / ID Tel , Service support , Assessment & Plan Assessment/Plan (1) UTI (urinary tract infection): (2) Hypoxia: (3) COVID-19: (4) Proctitis: PLAN: Plan Acute hypoxia secondary to COVID-19 infection -Patient with tracheostomy in place and currently on 28% FiO2 -Wean oxygen as able -Start Decadron 6 mg daily for another 9 days as he received a 10 mg dose IV in the emergency department -Start Mucinex 1200 mg p.o. twice daily -Continue home budesonide -Continue scheduled DuoNebs Abnormal UA -Highly suspicious of infection -No recent cultures here so we will continue ciprofloxacin but transition to oral 500 p.o. twice daily which will also cover proctitis -Await cultures and transition accordingly once sensitivities have been resulted Diarrhea secondary to proctitis Been it appears the patient has chronic issues with diarrhea -CT of the abdomen pelvis showed proctitis -Continue ciprofloxacin and transition to oral 500 p.o. twice daily and add metronidazole 500 p.o. twice daily for total of 10 days -Monitor stool output -No stool documented since admission MICHAEL -Serum creatinine admission was 1.6 -Baseline serum creatinine as of recently has been between 0.95-1.2 -Patient was given IV fluids and serum creatinine this morning is 1.15 so MICHAEL has since resolved -Okay to restart home Lasix -Monitor serum creatinine -Suspect exacerbated by decreased p.o. intake, diarrhea, and ongoing diuretic use Vocal cord dysfunction -Tracheostomy was placed to treat this -Follows with ENT at [facility] and [facility] locally -Has an appointment in November for trach change Asthma/COPD overlap syndrome -Continue home budesonide -Scheduled DuoNebs while hospitalized for COVID -Continue outpatient follow-up with pulmonary medicine after discharge MARYJO -Resolved with tracheostomy CAD/carotid artery disease/essential hypertension/hyperlipidemia/chronic HFpEF -History of PCI to RCA with SKYLAR -Continue aspirin -Continue Plavix -Continue Zetia -Continue home Lasix -Continue home metoprolol -Continue home rosuvastatin -Continue outpatient follow-up with cardiology as needed/recommended BPH with obstruction -Continue home Flomax Hypothyroidism -Continue levothyroxine -TSH was slightly suppressed however suspect euthyroid sick syndrome -Check free T4 Parkinson's disease -Continue home carbidopa levodopa Generalized weakness/debility -PT/OT consult -Case management/social work consult for assistance with discharge planning DVT prophylaxis -Continue enoxaparin 40 mg daily
[2023-10-22 08:42] LABS: T4 Free Direct 1.31 ng/dL (0.76-1.46)
[2023-10-22] MEDS: Enoxaparin 40 MG/0.4 ML Syringe SC (10:16)
[2023-10-22] MEDS: Atropine Sulfate 1% 2 ml Bottle SL (10:16)
[2023-10-22] MEDS: metroNIDAZOLE 500 MG Tablet PO ×2 (10:17→22:48)
[2023-10-22] MEDS: Tamsulosin HCl 0.4 MG Capsule PO (10:17)
[2023-10-22] MEDS: Potassium Chloride Oral Tablet 20 MEQ PO (10:18)
[2023-10-22] MEDS: Furosemide 40 MG Tablet PO (10:18)
[2023-10-22] MEDS: guaiFENesin 1,200 MG Tablet 1200 MG PO ×2 (10:18→22:48)
[2023-10-22] MEDS: Aspirin 81 MG TAB.CHEW PO (10:18)
[2023-10-22] MEDS: Ezetimibe 10 MG Tablet PO (10:18)
[2023-10-22] MEDS: Clopidogrel Bisulfate 75 MG Tablet PO (10:18)
[2023-10-22] MEDS: Metoprolol(XL)Succ 25 MG Tablet 12.5 MG PO (10:22)
[2023-10-22] MEDS: Nystatin Powder 15gm Bottle 1 APPLIC TOPICAL ×2 (10:22→22:50)
[2023-10-22] MEDS: Menthol/Lanolin/Calamine/Znox 113 GM Tube 1 APPLIC TOPICAL ×2 (10:26→22:49)
[2023-10-22] MEDS: Ensure Plus High Protein 120 ML LIQUID PO ×3 (10:27→17:31)
--- NOTE | 2023-10-22 10:55 | CASEMGMT ---
JAZIEL UMAÑA Assessment: Face to Face with pt for initial transition planning/care coordination assessment. RN LEEROY introduced self and role at [facility], pt voices understanding and consents to assessment. Pt is A&O x4 and answers all questions appropriately at this time. Pt sitting up in chair in no distress. Care providers, pharmacy, and demographics verified/updated. Strata: 3 Admitting Dx: COVID 19, infection UTI PCP: [facility] Specialists: Alexander, radiographer mammographer; [facility]; Urologist out of [place]; Neurologist. Preferred Pharmacy: [facility] Insurance: [employer] Prescription Benefit: yes LNOK: Luz, ; Bessy, Daughter Living Arrangements: Pt lives with in a 2 story home with 2 steps to enter. ADLs: Pt reports previously I with ADLs and IADLs, but has been weak the past few days. Transportation: Pt states was driving self, lately provides transportation. DME: Shower chair, grab bars. Pt states [employer] company of choice if has oxygen needs, denies wanting a list of local DME providers. HHC/SNF: Pt previously in TCU. Currently active with [facility] for SN and PT. Pt would like to continue with [facility] at time of DC, denies wanting a list of local [facility] agencies. Pt states no concerns with going home at time of dc. Pt states no further concerns/needs. CM to follow. Advised pt to ask CM if any further question/concerns/needs arise, voices understanding. Pt Goal: Home with restarting HHC services. Plan: Home with [facility] and family support. Follow therapy and for O2 needs. Brenda SHERIFF CM
--- NOTE | 2023-10-22 14:19 | CASEMGMT ---
Addendum entered by Kell Daniels 10/22/23 14:36: Received confirmation back that pt is active with SN and PT with [facility]. Original Note: Message sent via [employer] to [employer] to confirm disciplines seeing pt.
[2023-10-22] MEDS: Budesonide Respules 0.5 MG/2 ML AMPUL.NEB. INHALATION (20:02)
[2023-10-22] MEDS: Atorvastatin Calcium 10 MG Tablet PO (22:50)
--- NOTE | 2023-10-22 23:21 | CT_ITS ---
EXAM: CT ABDOMEN AND PELVIS WITH INTRAVENOUS CONTRAST CLINICAL INDICATION: abd pain TECHNIQUE: Helically acquired images were obtained of the abdomen and pelvis with intravenous contrast. This CT exam was performed using one or more of the following dose reduction techniques: automated exposure control, adjustment of the mA and/or kV according to patient size, and/or use of iterative reconstruction technique. CONTRAST: IV 100mL [id number]-370 COMPARISON: March 16, 2023 FINDINGS: LOWER THORAX: Circumferential wall thickening involving the distal esophageal wall is concerning for reflux esophagitis. Dependent atelectasis at the posterior lower lobes. No cardiomegaly. No significant pericardial effusion. ABDOMEN: LIVER: Unremarkable. Homogeneous. No focal mass. GALLBLADDER AND BILE DUCTS: Bladder wall thickening and adjacent stranding is compatible with cholecystitis. No intra- or extrahepatic biliary ductal dilation. PANCREAS: Unremarkable. No focal cystic or solid mass. SPLEEN: Unremarkable. Normal size without focal cystic or solid mass. ADRENALS: Unremarkable. No nodules. KIDNEYS AND URETERS: Exophytic cyst at the lower pole the right kidney. No other renal abnormalities. No hydronephrosis. STOMACH AND BOWEL: Mild circumferential wall thickening involving the rectum and anus which may be inflammatory. Fat-containing lobe hernia with no bowel herniation or inflammation associated. No colitis or diverticulitis or bowel obstruction. PELVIS: APPENDIX: No evidence of acute appendicitis. BLADDER: Unremarkable. REPRODUCTIVE: TURP defect of the prostate. No mass. ABDOMEN and PELVIS: INTRAPERITONEAL SPACE: Unremarkable. No ascites or other fluid collection. No free air. BONES/JOINTS: Moderate anterior wedge deformity involving the L1 vertebral body, chronic. No acute osseous abnormalities. Degenerative changes of the spine and pelvis. SOFT TISSUES: See above. VASCULATURE: Unremarkable. Abdominal aorta is non-dilated. LYMPH NODES: Unremarkable. No enlarged lymph nodes. CT/Abdomen/Pelvis W IV Cont ONLY IMPRESSION: 1. Findings are concerning for cystitis. Correlate with urinalysis. 2. Distal esophagitis suspected. 3. Possible proctitis/anusitis. 4. Ancillary findings as above. Electronically Signed: Edgardo Reagan MD at 1:06 EDT ,
[2023-10-23 03:10] VITALS: BP 129/79; PULSE 56; RESP 18; TEMP 36.6; O2SAT 98
[2023-10-23 05:52] LABS: Hematocrit 41.5 % (40-54); Hemoglobin 13.3 g/dL (13.0-16.5); Mean Corpuscular Hgb 30.6 pg (27.0-32.0); Mean Corpuscular Volume 95.4 fL (80-94); Mean Platelet Vol. 11.3 fl (6.2-12.0); Platelet Count 184 K/mm3 (150-450); RBC Distribution Width CV 14.1 % (11.6-14.6); RBC Distribution Width SD 50.4 fl (35.1-43.9); Red Blood Count 4.35 M/mm3 (4.6-6.2); White Blood Count 7.7 K/mm3 (4.4-11.0)
[2023-10-23] MEDS: Levothyroxine 150 MCG Tablet PO (06:25)
[2023-10-23] MEDS: Carbidopa/Levodopa 25/100 Tablet PO ×2 (06:25→10:13)
[2023-10-23 07:06] VITALS: PULSE 67; RESP 18
[2023-10-23] MEDS: Budesonide Respules 0.5 MG/2 ML AMPUL.NEB. INHALATION (07:06)
[2023-10-23 07:07] LABS: Anion Gap 6 (5-15); BUN 24 mg/dL (7-18); BUN/Creat Ratio 24.5 RATIO (10-20); Chloride 103 mmol/L (98-107); Creatinine, Serum 0.98 mg/dL (0.70-1.30); EST Glomerular Filtration Rate 81 mL/min (>60); Est Glom Filt Rate - Afr Amer 99 mL/min (>60); Estimated Creatinine Clearance 82.08 ml/min; Glucose 106 mg/dL (74-106); Potassium 3.7 mmol/L (3.5-5.1); Sodium Level 138 mmol/L (136-145)
[2023-10-23 10:00] VITALS: BP 107/67; PULSE 72; RESP 18; TEMP 36.7; O2SAT 95; O2SAT 98
[2023-10-23] MEDS: Enoxaparin 40 MG/0.4 ML Syringe SC (10:12)
[2023-10-23 10:13] VITALS: PULSE 76
[2023-10-23] MEDS: Metoprolol(XL)Succ 25 MG Tablet 12.5 MG PO (10:13)
[2023-10-23] MEDS: Clopidogrel Bisulfate 75 MG Tablet PO (10:13)
[2023-10-23] MEDS: Ezetimibe 10 MG Tablet PO (10:13)
[2023-10-23] MEDS: dexAMETHasone 4 MG Tablet 6 MG PO (10:13)
[2023-10-23] MEDS: guaiFENesin 1,200 MG Tablet 1200 MG PO (10:15)
[2023-10-23] MEDS: Aspirin 81 MG TAB.CHEW PO (10:15)
[2023-10-23] MEDS: Furosemide 40 MG Tablet PO (10:15)
[2023-10-23] MEDS: Ciprofloxacin 500 MG Tablet PO (10:15)
[2023-10-23] MEDS: metroNIDAZOLE 500 MG Tablet PO (10:15)
[2023-10-23] MEDS: Tamsulosin HCl 0.4 MG Capsule PO (10:15)
[2023-10-23] MEDS: Menthol/Lanolin/Calamine/Znox 113 GM Tube 1 APPLIC TOPICAL (10:16)
[2023-10-23] MEDS: Potassium Chloride Oral Tablet 20 MEQ PO (10:16)
[2023-10-23] MEDS: Atropine Sulfate 1% 2 ml Bottle SL (10:16)
[2023-10-23] MEDS: Nystatin Powder 15gm Bottle 1 APPLIC TOPICAL (10:51)
--- NOTE | 2023-10-23 11:25 | PCM.DC.SUM ---
Providers Date of Admission: 10/22/23 Date of Discharge: 10/23/23 Primary Care Physician: Dr. Cisco Dozier, Reason For Visit: COVID-19 INFECTION UTI Diagnosis Discharge Diagnosis (1) UTI (urinary tract infection): Status: Acute Code(s): N39.0 - Urinary tract infection, site not specified (2) Hypoxia: Status: Acute Code(s): R09.02 - Hypoxemia (3) COVID-19: Status: Acute Code(s): U07.1 - COVID-19 (4) Proctitis: Status: Acute Code(s): K62.89 - Other specified diseases of anus and rectum Plan Acute hypoxia secondary to COVID-19 infection -Patient with tracheostomy in place and currently on 28% FiO2 -Wean oxygen as able -Start Decadron 6 mg daily for another 9 days as he received a 10 mg dose IV in the emergency department -Start Mucinex 1200 mg p.o. twice daily -Continue home budesonide -Continue scheduled DuoNebs Abnormal UA -Highly suspicious of infection -No recent cultures here so we will continue ciprofloxacin but transition to oral 500 p.o. twice daily which will also cover proctitis -Await cultures and transition accordingly once sensitivities have been resulted Diarrhea secondary to proctitis Been it appears the patient has chronic issues with diarrhea -CT of the abdomen pelvis showed proctitis -Continue ciprofloxacin and transition to oral 500 p.o. twice daily and add metronidazole 500 p.o. twice daily for total of 10 days -Monitor stool output -No stool documented since admission MICHAEL -Serum creatinine admission was 1.6 -Baseline serum creatinine as of recently has been between 0.95-1.2 -Patient was given IV fluids and serum creatinine this morning is 1.15 so MICHAEL has since resolved -Okay to restart home Lasix -Monitor serum creatinine -Suspect exacerbated by decreased p.o. intake, diarrhea, and ongoing diuretic use Vocal cord dysfunction -Tracheostomy was placed to treat this -Follows with ENT at [facility] and [facility] locally -Has an appointment in November for trach change Asthma/COPD overlap syndrome -Continue home budesonide -Scheduled DuoNebs while hospitalized for COVID -Continue outpatient follow-up with pulmonary medicine after discharge MARYJO -Resolved with tracheostomy CAD/carotid artery disease/essential hypertension/hyperlipidemia/chronic HFpEF -History of PCI to RCA with SKYLAR -Continue aspirin -Continue Plavix -Continue Zetia -Continue home Lasix -Continue home metoprolol -Continue home rosuvastatin -Continue outpatient follow-up with cardiology as needed/recommended BPH with obstruction -Continue home Flomax Hypothyroidism -Continue levothyroxine -TSH was slightly suppressed however suspect euthyroid sick syndrome -Check free T4 Parkinson's disease -Continue home carbidopa levodopa Generalized weakness/debility -PT/OT consult -Case management/social work consult for assistance with discharge planning DVT prophylaxis -Continue enoxaparin 40 mg daily Medications at Discharge Home Medications levothyroxine 150 mcg tablet (Synthroid) 150 mcg PO DAILY thyroid 01/13/21 aspirin 81 mg chewable tablet (Luis Alberto Chewable Low Dose Aspirin) 81 mg PO DAILY heart health 01/24/22 tamsulosin 0.4 mg capsule 0.4 mg PO DAILY prostate 05/17/22 Handicap placard #1 ea 10/01/22 potassium chloride 20 mEq tablet,extended release 20 meq PO DAILY supplement #90 tabs 07/10/23 ipratropium 0.5 mg-albuterol 3 mg (2.5 mg base)/3 mL nebulization soln 3 ml inhalation Q4H PRN PRN SOB &/OR WHEEZING #360 mL 09/18/23 atropine 1 % eye drops See Rx Instructions buccal DAILY #10 mL 10/01/23 carbidopa 25 mg-levodopa 100 mg tablet 2 tab PO TID parkinsons #540 tabs 10/01/23 clopidogrel 75 mg tablet 75 mg PO DAILY anit platelet #90 tabs 10/10/23 ezetimibe 10 mg tablet 10 mg PO DAILY as prescribed #90 tabs 10/10/23 furosemide 40 mg tablet (Lasix) 40 mg PO DAILY diuretic #90 tabs 10/10/23 metoprolol succinate 25 mg tablet,extended release 24 hr 12.5 mg (1/2 x 25 mg) PO DAILY bp #90 tabs 10/10/23 rosuvastatin 5 mg tablet 5 mg PO DAILY cholesterol #90 tabs 10/10/23 budesonide 1 mg/2 mL suspension for nebulization 1 mg (2 mL) inhalation BID #120 mL 10/17/23 nitrofurantoin monohydrate/macrocrystals 100 mg capsule 100 mg PO MOWEFR 10/21/23 ciprofloxacin HCl 500 mg tablet 500 mg PO BID #10 tabs 10/23/23 dexamethasone 4 mg tablet 6 mg (1.5 x 4 mg) PO DAILY #7 tabs 10/23/23 metronidazole 500 mg tablet 500 mg PO BID #10 tabs 10/23/23 Hospital Course Operations None Procedures EKG and - (Chest x-ray/CT abdomen and pelvis) Summary of Care Provided Minutes Spent on Discharge: 37 Hospital Course: Mr. Cole is a 63-year-old white male who presented to the emergency department [facility] on 10/22/2023 with a chief complaint of shortness of breath. Patient does have a complex past medical history with current tracheostomy tube in place. He recently was treated for a urinary tract infection with Macrobid however he still complaining of dysuria along with his shortness of breath. He typically is not oxygen dependent but was found to have oxygen saturations of 88% on room air in the emergency department. He was placed on supplemental oxygen at that time with improvement in his oxygen saturations. He also complained of diarrhea with stooling about 6 times a day for several days. Vital signs on presentation showed a temperature of 100.2, heart rate 89, respirate 16-20, blood pressure was 101/57 and oxygen saturation was 88% on room air. CBC was unremarkable other than a left shift with a CD4 0.1% neutrophilia. His white count was normal. Chemistry panel showed mild hyponatremia with a sodium of 133, MICHAEL with a BUN of 35 and a serum creatinine of 1.6 (baseline creatinine is 0.95-1.2.). His LFTs were unremarkable. BNP was 75.5. Chest x-ray showed some atelectasis in the right lung base but no other acute disease and CT of the abdomen pelvis was performed due to his diarrhea and demonstrated findings concerning for cystitis, suspected distal esophagitis and possible proctitis/Anusitis. His UA was suggestive of infection. His COVID-19 test was positive. He was given Decadron in the emergency department for his COVID and the Cipro for probable UTI. He was admitted to the medical floor for ongoing care. Once on the medical floor we did add Flagyl as the CT did suggest proctitis. Urine culture sent and had no growth at the time of discharge showed no treatment will be needed for that however we will continue another 5 days of antibiotics to complete a total of 7 days for his proctitis/anusitis. Even after 12 hours of admission he was feeling quite a bit better and we will able to wean him off oxygen to room air. We monitored him for 24 hours after discontinuation of oxygen and he did well with no supplemental oxygen needed at rest or with exertion at the time of discharge having his oxygen saturations been 97 and 95% respectively. We did send prescriptions for Cipro and Flagyl as noted above. In addition to this, he was placed on Decadron for another 7 days to complete a 10-day course for his COVID-19 infection. We asked that he self isolate for the next 7 days to avoid spreading infection to others and the patient voiced understanding. I have asked him to follow-up with his primary care physician at the next 2 weeks and the patient was discharged home in stable condition on 10/23/2023. Discharge diagnoses: Acute hypoxia-resolved COVID-19 infection Abnormal UA-infection ruled out with negative culture Diarrhea-resolved Proctitis MICHAEL-resolved Vocal cord dysfunction Asthma/COPD overlap syndrome MARYJO CAD Carotid artery disease Essential hypertension Hyperlipidemia Chronic heart failure with preserved ejection fraction BPH with obstruction Hypothyroidism Parkinson's disease Generalized weakness/debility Physical Exam Const alert, oriented x3, no apparent distress, no limitations and well nourished Constitutional Narrative: Overweight, very pleasant, upper middle-aged, white male, appears comfortable, nontoxic, walking independently around the room with nursing at the bedside General Appearance: cooperative, comfortable, well kempt and well developed Orientation / Consciousness: awake, oriented to person, oriented to place and oriented to time Exam Limitations: no limitations Nutritional Appearance: overweight HEENT normocephalic, head/scalp atraumatic and moist oral mucous membranes HEENT Narrative: Mallampati 3, no thrush, Eyes PERRL, EOMs intact bilaterally and conjunctivae normal Eyes Narrative: No scleral icterus Neck no lymphadenopathy and supple Neck Narrative: Tracheostomy in place with Passy-Toño valve and patient able to vocalize well Resp normal respiratory effort, no retractions, no use of accessory muscles and clear to auscultation bilaterally Auscultation: rhonchi and wheezes; Negative for crackles Cardio regular rate, regular rhythm, S1 normal heart sound, S2 normal heart sound, no murmurs, no rub, no gallops and no clicks GI normal to inspection, nondistended, normoactive bowel sounds, soft to palpation and non-tender Extremity no clubbing, cyanosis or edema Skin no rashes or lesions noted, no wounds, skin turgor normal and no jaundice Neuro oriented x3, moves all extremities, no focal motor deficits and no sensory deficits noted Neuro Narrative: On ambulation patient has some mild bradykinesia and mild retropulsion intermittently Speech: speech normal Psych thought process normal and affect normal Appearance: appropriate Medical Records Data Medical Nutrition Assessment Dietitian: Malnutrition Criteria Met Start: 10/22/23 18:00 Freq: Status: Active Protocol: Document 10/22/23 18:00 RMA (Rec: 10/22/23 18:01 RMA [id number]) Nutrition Malnutrition Evidence of Malnutrition Exists Yes Malnutrition (severe): Acute Illness/Injury Evidenced By Suboptimal Energy Intake ( Severe),Weight Loss (Severe) Clinical Problem Acute Disease or Injury Related Malnutrition Etiology severe protein-calorie malnutrition in the context of acute illness related to inadequate oral/energy intake Signs/Symptoms as evidenced by PO meeting less than 50% estimated nutrition needs x 2 weeks and ~4% unintentional weight loss x 2 weeks Status Active Problem Recommendation Dietitian Recommendations/Changes Continue liberalized regular diet until PO improves; adjust to cardiac as indicated. Consistency/texture changes as needed; consider [employer] swallow evaluation as needed given hx of dysphagia. Will change 120mL ensure plus HP to with meals instead of medpass due to Covid precautions. Additional ONS as needed if PO remains inadequate at meals. Weight / BMI Weight Weight: 87 kg Body Mass Index (BMI) 28.3 ABG / Lab / Microbiology Data 10/23/23 04:35 10/23/23 04:35 Laboratory: Laboratory Results - last 24 hr 10/23/23 04:35: WBC 7.7, RBC 4.35 L, Hgb 13.3, Hct 41.5, MCV 95.4 H, MCH 30.6, MCHC 32.0, RDW Std Deviation 50.4 H, RDW Coeff of Nick 14.1, Plt Count 184, MPV 11.3, Sodium 138, Potassium 3.7, Chloride 103, Carbon Dioxide 29.0, Anion Gap 6, BUN 24 H, Creatinine 0.98, Estim Creat Clear Calc 82.08, Est GFR (MDRD) Af Amer 99, Est GFR (MDRD) Non-Af 81, BUN/Creatinine Ratio 24.5 H, Glucose 106, Calcium 9.0 Microbiology: Microbiology 10/22/23 00:58 Urine, Catheterized Urine Culture - Preliminary Culture exhibits no growth. 10/21/23 23:36 Mucosa - Nose SARS-CoV-2, Influenza & RSV (PCR) - Final SARS-CoV-2 (COVID 19 PCR) D/C Instructions Discharge Diet: Low fat / Low cholesterol Discharge Activity: Return to Normal Activity (Normal activity at home but please isolate yourself for another 7 days to avoid spread of COVID-19) Meaningful Use Info Meaningful Use Meaningful Use Diagnoses (Choose all that apply): None applicable Ischemic Stroke Statin Dosing Therapy Reference: STATIN DOSE THERAPY REFERENCE: * Patients > 75 years receive moderate or high dose statin therapy. * Patients 75 years or YOUNGER should receive HIGH intensity statin dose unless contraindicated. You will be required to document reason for non-treatment if statin daily dose does not meet guidelines. HIGH DOSE STATIN THERAPY DAILY Atorvastatin > than or = to 40 mg Rosuvastatin > than or = to 20 mg Amlodipine + Atorvastatin > than or = to 2.5/40 mg Ezetimibe + Simvastatin 10/80 mg Simvastatin 80mg Discharge Plan Admission Admit Date/Time: 10/22/23 02:20 Primary Reason for Your Visit: Shortness of breath Attending Provider: Danita Spaulding Primary Care Provider: Cisco Dozier Consulting Providers: Pj Almanza Instructions Additional Instructions / Restrictions: 1. You are found to have an acute COVID-19 infection. Please isolate yourself for a total of 7 after discharge to avoid spreading the virus further. Discharge Orders/Prescriptions Prescriptions: New metronidazole 500 mg Tablet 500 mg PO BID Qty: 10 0RF dexamethasone 4 mg Tablet 6 mg PO DAILY Qty: 7 0RF ciprofloxacin HCl 500 mg Tablet 500 mg PO BID Qty: 10 0RF Continued tamsulosin 0.4 mg capsule 0.4 mg PO DAILY carbidopa-levodopa 25-100 mg tablet 2 tab PO TID Qty: 540 3RF atropine 1 % drops See Rx Instructions buccal DAILY Qty: 10 3RF Rx Instructions: Take 1 to 2 drops buccally daily budesonide 1 mg/2 mL suspension for nebulization 1 mg inhalation BID Qty: 120 11RF clopidogrel 75 mg tablet 75 mg PO DAILY Qty: 90 3RF ezetimibe 10 mg tablet 10 mg PO DAILY Qty: 90 3RF furosemide [Lasix] 40 mg tablet 40 mg PO DAILY Qty: 90 3RF metoprolol succinate 25 mg tablet extended release 24 hr 12.5 mg PO DAILY Qty: 90 3RF rosuvastatin 5 mg tablet 5 mg PO DAILY Qty: 90 3RF levothyroxine [Synthroid] 150 mcg tablet 150 mcg PO DAILY aspirin [Luis Alberto Chewable Aspirin] 81 mg tablet,chewable 81 mg PO DAILY Patient Comments: 1 tablet by mouth once a day nitrofurantoin monohyd/m-cryst 100 mg capsule 100 mg PO MOWEFR (DME) Handicap placard See Rx Instructions .Route .MEDSUPPLY Qty: 1 0RF Rx Instructions: Expiration: 10/01/2025 potassium chloride 20 mEq tablet extended release 20 meq PO DAILY Qty: 90 3RF ipratropium-albuterol 0.5 mg-3 mg(2.5 mg base)/3 mL solution for nebulization 3 ml inhalation Q4H PRN PRN (Reason: SOB &/OR WHEEZING) Qty: 360 11RF Referrals / Follow Up: Cisco Dozier DO [Primary Care Provider] - Within 2 Weeks Disposition Disposition (needs filled in before D/C Order can be placed): Home, Self Care Charges/Coding Visit Charges Inpatient E&M: 96061 Disch Hosp >30min
--- NOTE | 2023-10-23 11:44 | CASEMGMT ---
Addendum entered by Kell Daniels 10/23/23 12:37: [facility] confirmed receipt of referral and will resume care. Original Note: Pt did not qualify for home oxygen. [facility] at this time for resumptions of services.
[2023-10-23 13:00] VITALS: BP 118/74; PULSE 70; RESP 18; TEMP 37; O2SAT 97
== END 2023-10-23 13:10 | disposition home health service (06) | DRG 177 ==
LOC: ED 10-22 01:41 → MS3 10-22 02:03
PROVIDERS: Admitting Provider Family Medicine; Emergency Provider Emergency Medicine; PCP Family Medicine; Visit Provider Internal Medicine
DX: U07.1 COVID-19 (principal); J12.82 Pneumonia due to coronavirus disease 2019; E87.1 Hypo-osmolality and hyponatremia; N13.8 Other obstructive and reflux uropathy; N17.9 Acute kidney failure, unspecified; I50.32 Chronic diastolic (congestive) heart failure; J44.0 Chronic obstructive pulmonary disease with (acute) lower respiratory infection; N30.00 Acute cystitis without hematuria; G20.A1 Parkinson's disease without dyskinesia, without mention of fluctuations; I11.0 Hypertensive heart disease with heart failure; E89.0 Postprocedural hypothyroidism; Z93.0 Tracheostomy status; I25.10 Atherosclerotic heart disease of native coronary artery without angina pectoris; E78.00 Pure hypercholesterolemia, unspecified; K62.89 Other specified diseases of anus and rectum; K21.9 Gastro-esophageal reflux disease without esophagitis; R19.7 Diarrhea, unspecified; R33.8 Other retention of urine; R09.02 Hypoxemia; R53.81 Other malaise; E07.81 Sick-euthyroid syndrome; N40.1 Benign prostatic hyperplasia with lower urinary tract symptoms; Z79.82 Long term (current) use of aspirin; Z79.02 Long term (current) use of antithrombotics/antiplatelets; Z79.890 Hormone replacement therapy; Z79.899 Other long term (current) drug therapy; Z87.891 Personal history of nicotine dependence; Z95.5 Presence of coronary angioplasty implant and graft
CPT/HCPCS: 31720; 36415; 71046; 74177; 80048; 80076; 81001; 83605; 83735; 83880; 84439; 84443; 85025; 85027; 87040; 87077; 87086; 87088; 87631; 94640; 94762; 97162; 97802; 99285; J7030; J7040; P9612; Q9967; A4216

== ENCOUNTER 2023-10-28 14:41 | Emergency (ER) | payer MEDICARE, BC, SELFPAY ==
[2023-10-28 14:43] VITALS: BP 99/66; PULSE 80; RESP 18; TEMP 36.7; O2SAT 93
[2023-10-28 14:44] VITALS: BMI 26.6
--- NOTE | 2023-10-28 16:10 | EX.ED.GUMALE ---
HPI History of Present Illness Chief Complaint: Complaint Informant: patient and spouse/S.O. Narrative Narrative: Patient has had dribbling of urine for months, trouble emptying, several urinary tract infections last of which she was admitted here for because he had systemic symptoms from it, just finished antibiotics last dose today. His urologist Dr. Appiah who is with [facility] ordered an outpatient ultrasound of his kidneys and bladder, which she had at this hospital today, the results showed over 800 cc of postvoid residual, the waste management recycling technician called his urologist who asked him to come to the ER to get a catheter so he is here. The states he had COVID last week at the same time he had a urinary tract infection. He is overall doing well but still deconditioned and weak generally. Blood pressures have been low chronically. The patient has no other focal complaints right now. Denies any hematuria today. [facility] Medical History Acute dyspnea Acute exacerbation of chronic obstructive pulmonary disease Fall Debility BPH (benign prostatic hyperplasia) GERD (gastroesophageal reflux disease) Dysphagia Vocal cord dysfunction (HFpEF) heart failure with preserved ejection fraction Carotid artery disease Dizziness Hypokalemia Hypoxia Asthma-COPD overlap syndrome Hyperlipidemia COPD (chronic obstructive pulmonary disease) Carotid artery stenosis Osteoarthritis of right hip Angioedema Diastolic dysfunction Throat clearing Moist mucous membranes of ear, nose, and throat Cough Oral thrush Carotid artery, internal, occlusion MARYJO (obstructive sleep apnea) Smoking greater than 30 pack years Chronic diastolic (congestive) heart failure Orthostatic hypotension Fatigue Hypersomnia Parkinson's disease Mild cognitive impairment Benign localized hyperplasia of prostate with urinary obstruction and lower urinary tract symptoms Weak urinary stream Urinary frequency Urge incontinence of urine Tobacco abuse counseling Tobacco abuse Shortness of breath on exertion Snoring Postoperative hypothyroidism Observed sleep apnea Nocturia Laryngeal spasm Hypertension Hypercholesterolemia Hoarseness of voice Elevated brain natriuretic peptide (BNP) level Elevated troponin level Fungal infection Change in voice CAD (coronary artery disease) Breathing difficult Bradycardia ACS (acute coronary syndrome) Asthma History of nuclear stress test Acute deep vein thrombosis of lower extremity Abnormal CT of the chest Dyspnea Wears glasses Alcohol use Arthritis DVT (deep venous thrombosis) Gastric reflux Smoker Cricopharyngeal dysphagia Parasomnia Bilateral hearing loss Spasm of vocal cords High cholesterol Hypothyroidism Home Medications ?Medication ?Instructions ?Recorded ?Last Taken ?Type levothyroxine 150 mcg tablet 150 mcg PO DAILY thyroid 01/13/21 09/07/23 History (Synthroid) aspirin 81 mg chewable tablet 81 mg PO DAILY heart health 01/24/22 09/07/23 History (Luis Alberto Chewable Low Dose Aspirin) tamsulosin 0.4 mg capsule 0.4 mg PO DAILY prostate 05/17/22 09/07/23 History Handicap placard #1 ea 10/01/22 Unknown Rx potassium chloride 20 mEq 20 meq PO DAILY supplement #90 tabs 07/10/23 Unknown Rx tablet,extended release ipratropium 0.5 mg-albuterol 3 mg 3 ml inhalation Q4H PRN PRN SOB 09/18/23 Unknown Rx (2.5 mg base)/3 mL nebulization &/OR WHEEZING #360 mL soln atropine 1 % eye drops See Rx Instructions buccal DAILY 10/01/23 Unknown Rx #10 mL carbidopa 25 mg-levodopa 100 mg 2 tab PO TID parkinsons #540 tabs 10/01/23 Unknown Rx tablet clopidogrel 75 mg tablet 75 mg PO DAILY anit platelet #90 10/10/23 Unknown Rx tabs ezetimibe 10 mg tablet 10 mg PO DAILY as prescribed #90 10/10/23 Unknown Rx tabs furosemide 40 mg tablet (Lasix) 40 mg PO DAILY diuretic #90 tabs 10/10/23 Unknown Rx metoprolol succinate 25 mg 12.5 mg (1/2 x 25 mg) PO DAILY bp 10/10/23 Unknown Rx tablet,extended release 24 hr #90 tabs rosuvastatin 5 mg tablet 5 mg PO DAILY cholesterol #90 tabs 10/10/23 Unknown Rx budesonide 1 mg/2 mL suspension 1 mg (2 mL) inhalation BID #120 mL 10/17/23 Unknown Rx for nebulization nitrofurantoin 100 mg PO MOWEFR 10/21/23 Unknown History monohydrate/macrocrystals 100 mg capsule ciprofloxacin HCl 500 mg tablet 500 mg PO BID #10 tabs 10/23/23 Unknown Rx dexamethasone 4 mg tablet 6 mg (1.5 x 4 mg) PO DAILY #7 tabs 10/23/23 Unknown Rx metronidazole 500 mg tablet 500 mg PO BID #10 tabs 10/23/23 Unknown Rx Allergy/AdvReac Type Severity Reaction Status Date / Time vibegron (From [employer]) Allergy Severe Rash Verified 10/28/23 14:42 Family History (Reviewed 10/17/23 @ 15:10 by Karen Lora FILM OR VIDEOTAPE EDITOR, FILM OR VIDEOTAPE EDITOR-C) Father COPD (chronic obstructive pulmonary disease) Emphysema lung Myocardial infarction Mother Parkinsons disease Malignant melanoma Surgical History (Reviewed 10/17/23 @ 15:10 by Karen Lora FILM OR VIDEOTAPE EDITOR, FILM OR VIDEOTAPE EDITOR-C) Status post tracheostomy 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 artery (~06/06/21) H/O cardiac catheterization (~06/06/21) Hx of arthroscopy of knee H/O knee surgery H/O thyroidectomy Social History household members: spouse Smoking Status: Former smoker Tobacco: How many years used: 45 second hand exposure: Yes alcohol intake: former substance use type: does not use caffeine: Yes (daily) Type: coffee Number of servings: 2 what type of physical activity do you participate in: walking seatbelt use: sometimes ROS ROS ED Constitutional Constitutional ED: Reports malaise and weakness; Denies chills or fever(s) Eyes Eyes: Denies change in vision or diplopia ENT ENT ED: Denies rhinorrhea or sore throat Cardiovascular Cardiovascular: Denies chest pain or palpitations Respiratory/Chest Respiratory/Chest: Denies cough or dyspnea Gastrointestinal Gastrointestinal: Denies abdominal pain, diarrhea, nausea or vomiting Genitourinary Genitourinary ED: Reports as per HPI, difficulty urinating and post void dribbling; Denies dysuria, hematuria or scrotal pain Musculoskeletal Musculoskeletal: Denies back pain or neck pain Integumentary Denies abscess or rash Neurologic Neurologic: Denies headache(s), paresthesias or weakness Psychiatric Psychiatric: Denies anxiety or suicidal thoughts EXAM Physical Exam Const Vital Signs: 10/28/23 14:43 10/28/23 16:40 Temperature 98.1 F Temperature Source Temporal Pulse Rate 80 81 Respiratory Rate 18 18 Blood Pressure 99/66 Blood Pressure Mean 77 Pulse Ox 93 Oxygen Delivery Method Room Air Positive well nourished and well developed General Appearance ED: well developed and NAD HEENT Reports moist mucous membranes normocephalic and atraumatic Eyes PERRL and EOMs intact bilaterally Neck full ROM and supple Neck Narrative: Trach & site intact/benign no respiratory distress or sputum production Resp normal respiratory effort and clear to auscultation bilaterally Cardio regular rate, regular rhythm and no murmurs Rate: Negative for tachycardic GI non-tender and non-distended GI Narrative: Discomfort when palpating suprapubically but not tender Auscultation: normoactive bowel sounds Palpation: soft Back/Spine no CVA tenderness General Back: other FROM Extremity normal to inspection General Extremety ED: Negative for edema, pulses abnormal or tenderness General Extremity: Negative for edema or pulses abnormal Neuro oriented x3, CN's II-XII intact bilaterally and no sensory deficits noted Sensorium / Orientation: awake and alert Motor Exam: general weakness Psych mental status grossly normal Skin no rashes or lesions noted and no wounds MDM MDM MDM Narrative Medical decision making narrative: Catheter was placed after treating the patient with Uro-Jet, he felt much better afterwards. Nonbloody transparent yellow urine, urinalysis sent and negative for infection. Patient will given a leg bag instructions for use and advised to follow-up with his urologist. Vital signs normal here. is comfortable with that plan as is the patient. Lab Data Attestation: I reviewed the patient's lab results. Labs: Laboratory Results - last 24 hr 10/28/23 16:31 Urine Color Yellow Urine Clarity Clear Urine pH 6.0 Ur Specific [place] 1.015 Urine Protein Negative Urine Glucose (UA) Normal Urine Ketones Negative Urine Occult Blood Negative Urine Nitrite Negative Urine Bilirubin Negative Urine Urobilinogen Normal Ur Leukocyte Esterase Negative Urine RBC 0 SEEN Urine WBC 0 SEEN Ur Squamous Epith Cells 0 SEEN Urine Bacteria 0 SEEN Urine Mucus 0 SEEN Discharge Plan Triage Chief Complaint: Complaint ED Provider: Ramos Randall Dx/Rx/DC Orders Clinical Impression: Acute on chronic urinary retention Instructions: ED Mayes Catheter, Care, ED Urinary Retention, Male Prescriptions: No Action tamsulosin 0.4 mg capsule 0.4 mg PO DAILY carbidopa-levodopa 25-100 mg tablet 2 tab PO TID Qty: 540 3RF atropine 1 % drops See Rx Instructions buccal DAILY Qty: 10 3RF Rx Instructions: Take 1 to 2 drops buccally daily budesonide 1 mg/2 mL suspension for nebulization 1 mg inhalation BID Qty: 120 11RF clopidogrel 75 mg tablet 75 mg PO DAILY Qty: 90 3RF ezetimibe 10 mg tablet 10 mg PO DAILY Qty: 90 3RF furosemide [Lasix] 40 mg tablet 40 mg PO DAILY Qty: 90 3RF metoprolol succinate 25 mg tablet extended release 24 hr 12.5 mg PO DAILY Qty: 90 3RF rosuvastatin 5 mg tablet 5 mg PO DAILY Qty: 90 3RF levothyroxine [Synthroid] 150 mcg tablet 150 mcg PO DAILY aspirin [Luis Alberto Chewable Aspirin] 81 mg tablet,chewable 81 mg PO DAILY Patient Comments: 1 tablet by mouth once a day nitrofurantoin monohyd/m-cryst 100 mg capsule 100 mg PO MOWEFR metronidazole 500 mg Tablet 500 mg PO BID Qty: 10 0RF dexamethasone 4 mg Tablet 6 mg PO DAILY Qty: 7 0RF ciprofloxacin HCl 500 mg Tablet 500 mg PO BID Qty: 10 0RF (DME) Handicap placard See Rx Instructions .Route .MEDSUPPLY Qty: 1 0RF Rx Instructions: Expiration: 10/01/2025 potassium chloride 20 mEq tablet extended release 20 meq PO DAILY Qty: 90 3RF ipratropium-albuterol 0.5 mg-3 mg(2.5 mg base)/3 mL solution for nebulization 3 ml inhalation Q4H PRN PRN (Reason: SOB &/OR WHEEZING) Qty: 360 11RF Primary Care Provider: Cisco Dozier Referrals: Rj Appiah II, MD [Non-Staff] - (call for follow up instructions) Cisco Dozier DO [Primary Care Provider] - Print Language: Malay Disposition Disposition: Home, Self Care
[2023-10-28] MEDS: Lidocaine Jelly 2% 20 ML Syringe (URO-JET) 1 APPLIC TOPICAL (16:29)
[2023-10-28 16:40] VITALS: PULSE 81; RESP 18
[2023-10-28 16:40] LABS: Bacteria 0 SEEN /hpf (None Seen); Mucous, Urine 0 SEEN /hpf (<or=2+); Red Blood Cells-Urine 0 SEEN /hpf (0-5); Squamous Epithelial Cells - UA 0 SEEN /hpf (0-5); White Blood Cells 0 SEEN /hpf (0-5)
[2023-10-28 16:48] LABS: Color, Urine Yellow (Yellow); Glucose, Dipstick Normal (Normal); Ketone-Dipstick Negative (Negative); Leukocyte Esterase-Dipstick Negative /ul (Negative); Nitrite-Dipstick Negative (Negative); Occult Blood-Urine Negative /ul (Negative); Protein-Dipstick Negative (Negative); Specific Gravity, Urine 1.015 (1.002-1.030); Urine Bilirubin Dipstick Negative (Negative); Urine Clarity Clear (Clear); Urine Urobilinogen Normal (Normal)
== END 2023-10-28 17:26 | disposition home or self-care (01) ==
LOC: ED 16:34
PROVIDERS: Emergency Provider Emergency Medicine; PCP Family Medicine; Visit Provider Emergency Medicine
DX: R33.9 Retention of urine, unspecified (principal); I11.0 Hypertensive heart disease with heart failure; I50.32 Chronic diastolic (congestive) heart failure; J44.9 Chronic obstructive pulmonary disease, unspecified; R39.198 Other difficulties with micturition; Z87.891 Personal history of nicotine dependence; E78.00 Pure hypercholesterolemia, unspecified; I25.10 Atherosclerotic heart disease of native coronary artery without angina pectoris; Z87.440 Personal history of urinary (tract) infections; K21.9 Gastro-esophageal reflux disease without esophagitis; R31.0 Gross hematuria
CPT/HCPCS: 99282; 76770; 81001; 87086

== ENCOUNTER → 2023-10-28 | Outpatient (CLI) | payer MEDICARE, BC, SELFPAY ==
--- NOTE | 2023-10-28 13:53 | US_ITS ---
PROCEDURE: RENAL ULTRASOUND - COMPLETE REASON FOR EXAM: Male, 63 years old. Hematuria TECHNIQUE: Ultrasound evaluation of the bilateral kidneys was performed with real-time ultrasonography and static grayscale imaging. COMPARISON: CT scan of the abdomen and pelvis of 09/18/2021 FINDINGS: RIGHT KIDNEY: Normal location of the right kidney which is normal in size. The right kidney measures 11 x 5 x 6 cm. There is a normal cortex of the right kidney. The renal cortex measures 1.1 cm. There is a 4 cm cyst in the lower pole of the left kidney. There are no right renal calculi. There is no right hydronephrosis. DISTAL RIGHT URETER: There is non-visualization of the distal right ureter. There is no demonstrated right ureterovesical junction calculus. There is a visualized right ureteral jet. LEFT KIDNEY: Normal location of the left kidney which is normal in size. The left kidney measures 10.4 x 5 x 5.8 cm. There is a normal cortex of the left kidney. The renal cortex measures 1.3 cm. There is no left renal mass or cyst. There are no left renal calculi. There is no left hydronephrosis. DISTAL LEFT URETER: There is non-visualization of the distal left ureter. There is no demonstrated left ureterovesical junction calculus. There is a visualized left ureteral jet. BLADDER: The distended urinary bladder has a volume of 817 ml. There is mild diffuse thickening of the bladder wall measuring about 4 mm. The empty urinary bladder has a volume of 700 ml. There is no demonstrated mass within the urinary bladder. There is no demonstrated bladder calculi. US/Kidney and Bladder IMPRESSION: 1. No evidence of hydronephrosis. 2. Right renal cyst. 3. Large post void residue. 4. Mild thickening of the bladder wall. Mild cystitis or bladder outlet obstruction cannot be excluded. Electronically Signed: Fred Lubin MD at 15:53 EDT ,
== END | disposition home or self-care (01) ==
LOC: US 13:52
PROVIDERS: PCP Family Medicine; Referring Provider Urology; Visit Provider Urology
DX: R31.0 Gross hematuria (principal)
CPT/HCPCS: 76770

== ENCOUNTER 2023-10-29 18:16 | Inpatient (IN) | payer MEDICARE, BC, SELFPAY ==
[2023-10-29] VITALS (7 sets, daily range): BP systolic 75–141; BP diastolic 51–88; PULSE 59–84; RESP 15–18; TEMP 35.6–36.3; O2SAT 92–98; BMI 27.2
--- NOTE | 2023-10-29 18:56 | EX.ED.DYSGE1 ---
HPI History of Present Illness Chief Complaint: Hypotension Informant: patient Associated Symptoms Associated Symptoms ED: cough Narrative Narrative: 53-year-old male started having COVID 8 days ago, never seemed to recover. He was here yesterday because he had having urinary retention and had an outpatient ultrasound that showed a large amount of retained urine and he was referred here to the ER to get a catheter which we did. states that his blood pressure always runs a little low. However he states all day today he has felt very lightheaded, he has been having trouble getting around because he feels like he is going to pass out, nearly did so couple times. Denies any abdominal pain. Still with a cough and a headache and malaise no fevers. checked his blood pressure today was in the 80s systolic at home so they were advised to come to the ER. At the time of evaluation it is 107/75. Patient states he has been drinking fluids and urinating, tolerating the catheter. No hematuria. He did start having diarrhea today multiple episodes no blood or melena, no other new symptoms. [facility] Medical History Acute dyspnea Acute exacerbation of chronic obstructive pulmonary disease Fall Debility BPH (benign prostatic hyperplasia) GERD (gastroesophageal reflux disease) Dysphagia Vocal cord dysfunction (HFpEF) heart failure with preserved ejection fraction Carotid artery disease Dizziness Hypokalemia Hypoxia Asthma-COPD overlap syndrome Hyperlipidemia COPD (chronic obstructive pulmonary disease) Carotid artery stenosis Osteoarthritis of right hip Angioedema Diastolic dysfunction Throat clearing Moist mucous membranes of ear, nose, and throat Cough Oral thrush Carotid artery, internal, occlusion MARYJO (obstructive sleep apnea) Smoking greater than 30 pack years Chronic diastolic (congestive) heart failure Orthostatic hypotension Fatigue Hypersomnia Parkinson's disease Mild cognitive impairment Benign localized hyperplasia of prostate with urinary obstruction and lower urinary tract symptoms Weak urinary stream Urinary frequency Urge incontinence of urine Tobacco abuse counseling Tobacco abuse Shortness of breath on exertion Snoring Postoperative hypothyroidism Observed sleep apnea Nocturia Laryngeal spasm Hypertension Hypercholesterolemia Hoarseness of voice Elevated brain natriuretic peptide (BNP) level Elevated troponin level Fungal infection Change in voice CAD (coronary artery disease) Breathing difficult Bradycardia ACS (acute coronary syndrome) Asthma History of nuclear stress test Acute deep vein thrombosis of lower extremity Abnormal CT of the chest Dyspnea Wears glasses Alcohol use Arthritis DVT (deep venous thrombosis) Gastric reflux Smoker Cricopharyngeal dysphagia Parasomnia Bilateral hearing loss Spasm of vocal cords High cholesterol Hypothyroidism Home Medications ?Medication ?Instructions ?Recorded ?Last Taken ?Type levothyroxine 150 mcg tablet 150 mcg PO DAILY thyroid 01/13/21 09/07/23 History (Synthroid) aspirin 81 mg chewable tablet 81 mg PO DAILY heart health 01/24/22 09/07/23 History (Luis Alberto Chewable Low Dose Aspirin) tamsulosin 0.4 mg capsule 0.4 mg PO DAILY prostate 05/17/22 09/07/23 History Handicap placard #1 ea 10/01/22 Unknown Rx potassium chloride 20 mEq 20 meq PO DAILY supplement #90 tabs 07/10/23 Unknown Rx tablet,extended release ipratropium 0.5 mg-albuterol 3 mg 3 ml inhalation Q4H PRN PRN SOB 09/18/23 Unknown Rx (2.5 mg base)/3 mL nebulization &/OR WHEEZING #360 mL soln atropine 1 % eye drops See Rx Instructions buccal DAILY 10/01/23 Unknown Rx #10 mL carbidopa 25 mg-levodopa 100 mg 2 tab PO TID parkinsons #540 tabs 10/01/23 Unknown Rx tablet clopidogrel 75 mg tablet 75 mg PO DAILY anit platelet #90 10/10/23 Unknown Rx tabs ezetimibe 10 mg tablet 10 mg PO DAILY as prescribed #90 10/10/23 Unknown Rx tabs furosemide 40 mg tablet (Lasix) 40 mg PO DAILY diuretic #90 tabs 10/10/23 Unknown Rx metoprolol succinate 25 mg 12.5 mg (1/2 x 25 mg) PO DAILY bp 10/10/23 Unknown Rx tablet,extended release 24 hr #90 tabs rosuvastatin 5 mg tablet 5 mg PO DAILY cholesterol #90 tabs 10/10/23 Unknown Rx budesonide 1 mg/2 mL suspension 1 mg (2 mL) inhalation BID #120 mL 10/17/23 Unknown Rx for nebulization nitrofurantoin 100 mg PO MOWEFR 10/21/23 Unknown History monohydrate/macrocrystals 100 mg capsule ciprofloxacin HCl 500 mg tablet 500 mg PO BID #10 tabs 10/23/23 Unknown Rx dexamethasone 4 mg tablet 6 mg (1.5 x 4 mg) PO DAILY #7 tabs 10/23/23 Unknown Rx metronidazole 500 mg tablet 500 mg PO BID #10 tabs 10/23/23 Unknown Rx Allergy/AdvReac Type Severity Reaction Status Date / Time vibegron (From [employer]) Allergy Severe Rash Verified 10/29/23 18:19 Family History (Reviewed 10/17/23 @ 15:10 by Karen Lora PACKAGE CENTER SUPERVISOR, PACKAGE CENTER SUPERVISOR-C) Father COPD (chronic obstructive pulmonary disease) Emphysema lung Myocardial infarction Mother Parkinsons disease Malignant melanoma Surgical History Status post tracheostomy 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 artery (~06/06/21) H/O cardiac catheterization (~06/06/21) Hx of arthroscopy of knee H/O knee surgery H/O thyroidectomy Social History household members: spouse Smoking Status: Former smoker Tobacco: How many years used: 45 second hand exposure: Yes alcohol intake: former substance use type: does not use caffeine: Yes (daily) Type: coffee Number of servings: 2 what type of physical activity do you participate in: walking seatbelt use: sometimes ROS ROS ED Constitutional Constitutional ED: Reports chills, fatigue, headache(s) and malaise Eyes Eyes: Denies change in vision or diplopia ENT ENT ED: Denies rhinorrhea or sore throat Cardiovascular Cardiovascular: Reports lightheadedness; Denies chest pain, palpitations or syncope Respiratory/Chest Respiratory/Chest: Reports cough; Denies dyspnea Gastrointestinal Gastrointestinal: Reports diarrhea; Denies abdominal pain, nausea or vomiting Genitourinary Genitourinary ED: Denies dysuria or hematuria Musculoskeletal Musculoskeletal: Denies back pain or neck pain Integumentary Denies abscess or rash Neurologic Neurologic: Reports headache(s); Denies paresthesias or weakness Psychiatric Psychiatric: Denies anxiety or suicidal thoughts EXAM Physical Exam Const Vital Signs: 10/29/23 18:19 10/29/23 18:40 10/29/23 19:23 Temperature 96.8 F L Temperature Source Temporal Pulse Rate 80 84 Respiratory Rate 18 18 Respiratory Effort Short of Breath Respiratory Pattern Normal Blood Pressure 75/51 L 96/70 Blood Pressure Mean 59 78 Pulse Ox 92 94 Oxygen Delivery Method Room Air Room Air Positive well nourished and well developed Constitutional Narrative: Well-appearing, no distress General Appearance ED: well developed and NAD HEENT Reports moist mucous membranes normocephalic and atraumatic Eyes PERRL and EOMs intact bilaterally Neck full ROM and supple Neck Narrative: Trach site benign, trach patent no excessive secretions Resp normal respiratory effort Resp Narrative: Few bilateral expiratory wheezes, no respiratory distress. Speaking full sentences. Cardio regular rate, regular rhythm and no murmurs Rate: Negative for tachycardic GI non-tender and non-distended Auscultation: normoactive bowel sounds Palpation: soft Narrative: Transparent yellow nonbloody urine in Mayes catheter and bag, actively draining Back/Spine no CVA tenderness General Back: other FROM Extremity normal to inspection and no calf tenderness General Extremety ED: Negative for edema, pulses abnormal or tenderness General Extremity: Negative for edema or pulses abnormal Neuro oriented x3, CN's II-XII intact bilaterally and no sensory deficits noted Sensorium / Orientation: awake and alert Motor Exam: strength 5/5 throughout Psych mental status grossly normal Skin no rashes or lesions noted and no wounds MDM MDM MDM Narrative Medical decision making narrative: Patient was given IV fluids, but detention through the bag his blood pressure is 97/75. His labs are noted, his lactate is normal, he is prerenal. He still feels a little lightheaded but improving. All this argues against sepsis. Did a urinalysis yesterday was normal, 2 view chest x-ray my interpretation shows no acute infiltrates. Trach is noted. He and are concerned about going home because they are concerned he is going to fall. Asked hospitalist to admit to observation overnight with continued IV fluids. In reviewing the chart the patient may be adrenal insufficient and he is requesting we add a cortisol level on as well as some hydrocortisone which is also being done. History & Record Review Additional record(s) reviewed:: Prior ED visit Lab Data Attestation: I reviewed the patient's lab results. Labs: Laboratory Results - last 24 hr 10/29/23 19:04 WBC 10.0 RBC 4.67 Hgb 14.2 Hct 43.9 MCV 94.0 MCH 30.4 MCHC 32.3 RDW Std Deviation 47.4 H RDW Coeff of Nick 13.7 Plt Count 211 MPV 11.2 Immature Gran % (Auto) 0.700 Neut % (Auto) 67.8 Lymph % (Auto) 20.7 [place] % (Auto) 9.0 Eos % (Auto) 1.5 Baso % (Auto) 0.3 Absolute Neuts (auto) 6.8 Absolute Lymphs (auto) 2.07 Nucleated RBC % 0 Sodium 139 Potassium 3.9 Chloride 103 Carbon Dioxide 31.0 Anion Gap 5 BUN 31 H Creatinine 1.16 Est GFR (MDRD) Af Amer 81 Est GFR (MDRD) Non-Af 67 BUN/Creatinine Ratio 26.7 H Glucose 112 H Lactic Acid 1.8 Calcium 8.7 Radiography Diagnostic Testing: Clinical Impression(s) from Imaging Studies Chest X-Ray 10/29/23 19:11 IMPRESSION: No acute findings in the chest. Electronically Signed: Josef Atkinson MD at 19:50 EDT , Management Discussion w/another healthcare provider: Hospitalist Discharge Plan Dx/Rx/DC Orders Clinical Impression: Mild dehydration, Acute on chronic urinary retention, Near syncope, Transient hypotension Disposition Disposition: Acute Care Hospital [facility]
[2023-10-29] MEDS: 0.9% Normal Saline (1000mL) 1,000 ML 999 ML IV (19:04)
--- NOTE | 2023-10-29 19:11 | RAD_ITS ---
EXAM: XR CHEST, 2 VIEWS CLINICAL INDICATION: cough TECHNIQUE: Frontal and lateral views of the chest. COMPARISON: 10/22/2023 FINDINGS: LUNGS AND PLEURAL SPACES: Unremarkable. No consolidation or edema. No pneumothorax. No effusion. HEART: Unremarkable. Cardiac silhouette not enlarged. MEDIASTINUM: Central airways and mediastinal contour are unremarkable. BONES/JOINTS: Unremarkable. No acute fracture. SOFT TISSUES: Unremarkable. TUBES, LINES AND DEVICES: Tracheostomy tube is in place. RAD/Chest PA and Lateral IMPRESSION: No acute findings in the chest. Electronically Signed: Josef Atkinson MD at 19:50 EDT ,
[2023-10-29 19:18] LABS: Absolute Lymphocyte Count 2.07 X10^3/uL (0.83-4.51); Absolute Neutrophil Count 6.8 X10^3/uL (2.0-7.7); Basophil# 0.03 X10^3/uL; Basophil% 0.3 % (0-1); Eosinophil# 0.15 X10^3/uL; Eosinophils% 1.5 % (0-5); Hematocrit 43.9 % (40-54); Hemoglobin 14.2 g/dL (13.0-16.5); Lymphocyte # 2.07 X10^3/ul (0.83-4.51); Lymphocyte % 20.7 % (19-41); Mean Corp Hgb Conc 32.3 g/dL (32-36); Mean Corpuscular Hgb 30.4 pg (27.0-32.0); Mean Platelet Vol. 11.2 fl (6.2-12.0); NRBC Flagged by Analyzer 0 % (0-5); Neutrophil # 6.78 X10^3/uL (2.7-7.7); Neutrophil % 67.8 % (47-70); Platelet Count 211 K/mm3 (150-450); RBC Distribution Width CV 13.7 % (11.6-14.6); RBC Distribution Width SD 47.4 fl (35.1-43.9); Red Blood Count 4.67 M/mm3 (4.6-6.2)
[2023-10-29 19:28] LABS: Anion Gap 5 (5-15); BUN 31 mg/dL (7-18); BUN/Creat Ratio 26.7 RATIO (10-20); Calcium,Total 8.7 mg/dL (8.5-10.1); Chloride 103 mmol/L (98-107); Creatinine, Serum 1.16 mg/dL (0.70-1.30); EST Glomerular Filtration Rate 67 mL/min (>60); Est Glom Filt Rate - Afr Amer 81 mL/min (>60); Glucose 112 mg/dL (74-106); Potassium 3.9 mmol/L (3.5-5.1); Sodium Level 139 mmol/L (136-145)
[2023-10-29 19:40] LABS: Lactic Acid 1.8 mmol/L (0.4-1.9)
--- NOTE | 2023-10-29 20:02 | PCM.HP.STD ---
[facility] - General General Date of Admission: 10/29/23 Date of Service: 10/29/23 Chief Complaint: Lightheadedness and Hypotension. HPI Narrative FREDDIE COLE, is a 63 M with a past medical history of essential hypertension, hyperlipidemia, hypothyroidism; s/p thyroidectomy (1998), overweight; with BMI of 27.2 this admission, MARYJO, Parkinson's disease, history of tobacco abuse; with subsequent asthma/COPD, history of vocal cord dysfunction; with previous tracheostomy, history of cricopharyngeal dysphagia, history of chronic diastolic CHF; with preserved LVEF, history of DVT, history of coronary artery stenosis; s/p RCA stent (2021), angioedema, history of proctitis, BPH; with [id number] urinary retention and recent Mayes catheter placement, OA; of the Right hip and recently diagnosed COVID-19 approximately 8 days ago treated conservatively with oral Dexamethasone who presents to [facility] ER complaining of lightheadedness and hypotension. Mr. Cole reports his symptoms began about 8 days ago once he was diagnosed with COVID-19 with subsequent failure to improve with tension-type headache, chills, fatigue, malaise and nonproductive cough. He also admits to nonbloody diarrhea with lightheadedness and hypotension with patient feeling like he is going to pass out when he stands up. In the ER CXR was negative with transient hypotension of 75/51 mmHg causing near syncope due to Dehydration; evidenced by BUN/creatinine ratio of 26.7 present on admission plus suspected relative adrenal insufficiency in the setting of recent COVID-19 causing headache, malaise and near syncope and he was then admitted to the PCU under observation status for a stay that is expected to be less than 2 midnights. [facility] Medical History Acute dyspnea Acute exacerbation of chronic obstructive pulmonary disease Fall Debility BPH (benign prostatic hyperplasia) GERD (gastroesophageal reflux disease) Dysphagia Vocal cord dysfunction (HFpEF) heart failure with preserved ejection fraction Carotid artery disease Dizziness Hypokalemia Hypoxia Asthma-COPD overlap syndrome Hyperlipidemia COPD (chronic obstructive pulmonary disease) Carotid artery stenosis Osteoarthritis of right hip Angioedema Diastolic dysfunction Throat clearing Moist mucous membranes of ear, nose, and throat Cough Oral thrush Carotid artery, internal, occlusion MARYJO (obstructive sleep apnea) Smoking greater than 30 pack years Chronic diastolic (congestive) heart failure Orthostatic hypotension Fatigue Hypersomnia Parkinson's disease Mild cognitive impairment Benign localized hyperplasia of prostate with urinary obstruction and lower urinary tract symptoms Weak urinary stream Urinary frequency Urge incontinence of urine Tobacco abuse counseling Tobacco abuse Shortness of breath on exertion Snoring Postoperative hypothyroidism Observed sleep apnea Nocturia Laryngeal spasm Hypertension Hypercholesterolemia Hoarseness of voice Elevated brain natriuretic peptide (BNP) level Elevated troponin level Fungal infection Change in voice CAD (coronary artery disease) Breathing difficult Bradycardia ACS (acute coronary syndrome) Asthma History of nuclear stress test Acute deep vein thrombosis of lower extremity Abnormal CT of the chest Dyspnea Wears glasses Alcohol use Arthritis DVT (deep venous thrombosis) Gastric reflux Smoker Cricopharyngeal dysphagia Parasomnia Bilateral hearing loss Spasm of vocal cords High cholesterol Hypothyroidism Home Medications ?Medication ?Instructions ?Recorded ?Last Taken ?Type levothyroxine 150 mcg tablet 150 mcg PO DAILY thyroid 01/13/21 09/07/23 History (Synthroid) aspirin 81 mg chewable tablet 81 mg PO DAILY heart health 01/24/22 09/07/23 History (Luis Alberto Chewable Low Dose Aspirin) tamsulosin 0.4 mg capsule 0.4 mg PO DAILY prostate 05/17/22 09/07/23 History Handicap placard #1 ea 10/01/22 Unknown Rx potassium chloride 20 mEq 20 meq PO DAILY supplement #90 tabs 07/10/23 Unknown Rx tablet,extended release ipratropium 0.5 mg-albuterol 3 mg 3 ml inhalation Q4H PRN PRN SOB 09/18/23 Unknown Rx (2.5 mg base)/3 mL nebulization &/OR WHEEZING #360 mL soln atropine 1 % eye drops See Rx Instructions buccal DAILY 10/01/23 Unknown Rx #10 mL carbidopa 25 mg-levodopa 100 mg 2 tab PO TID parkinsons #540 tabs 10/01/23 Unknown Rx tablet clopidogrel 75 mg tablet 75 mg PO DAILY anit platelet #90 10/10/23 Unknown Rx tabs ezetimibe 10 mg tablet 10 mg PO DAILY as prescribed #90 10/10/23 Unknown Rx tabs rosuvastatin 5 mg tablet 5 mg PO DAILY cholesterol #90 tabs 10/10/23 Unknown Rx budesonide 1 mg/2 mL suspension 1 mg (2 mL) inhalation BID #120 mL 10/17/23 Unknown Rx for nebulization nitrofurantoin 100 mg PO MOWEFR 10/21/23 Unknown History monohydrate/macrocrystals 100 mg capsule furosemide 40 mg tablet (Lasix) 40 mg PO 1200 diuretic 10/29/23 Unknown History metoprolol succinate 25 mg 12.5 mg PO 1800 bp 10/29/23 Unknown History tablet,extended release 24 hr Allergy/AdvReac Type Severity Reaction Status Date / Time vibegron (From [place]) Allergy Severe Rash Verified 10/29/23 22:21 Family History Father COPD (chronic obstructive pulmonary disease) Emphysema lung Myocardial infarction Mother Parkinsons disease Malignant melanoma Surgical History Status post tracheostomy 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 artery (~06/06/21) H/O cardiac catheterization (~06/06/21) Hx of arthroscopy of knee H/O knee surgery H/O thyroidectomy Social History household members: spouse Smoking Status: Former smoker Tobacco: How many years used: 45 second hand exposure: Yes alcohol intake: former substance use type: does not use caffeine: Yes (daily) Type: coffee Number of servings: 2 what type of physical activity do you participate in: walking seatbelt use: sometimes ROS ROS Narrative Review of Systems: Constitutional: Patient admits to chills and fatigue. Eyes: Patient denies changes in vision or discharge from eyes. ENT: Patient denies runny nose, sore throat or ear pain. Resp: Patient admits to cough but he denies SOB. CV: Patient admits to lightheadedness with near syncope as per HPI - but he denies chest pain, palpitations or heart racing. GI: Patient admits to diarrhea but denies abdominal pain, nausea, vomiting or constipation. : Patient denies dysuria, hematuria and urinary frequency. MSK: Patient denies neck pain or back pain. Skin: Patient denies rash, abscess or jaundice. Neuro: Patient admits to headache but he denies paresthesias or focal neurologic weakness. Psych: Patient denies symptoms of uncontrolled depression or anxiety. Allergy: Patient denies lip swelling, tongue swelling or urticaria. Hematology: Patient denies easy bleeding or easy bruisability. Endocrinology: Patient denies polyuria, polydipsia and polyphagia. 14 point ROS otherwise negative except for positives noted above in HPI. Vital Signs Vital Signs Vital Signs: 10/29/23 18:19 10/29/23 18:40 10/29/23 19:23 Temperature 96.8 F L Temperature Source Temporal Pulse Rate 80 84 Respiratory Rate 18 18 Respiratory Effort Short of Breath Respiratory Pattern Normal Blood Pressure 75/51 L 96/70 Blood Pressure Mean 59 78 Pulse Ox 92 94 Oxygen Delivery Method Room Air Room Air Physical Exam Const alert, oriented x3 and no apparent distress Constitutional Narrative: Obese and chronically ill and appearance with tracheostomy appliance in place. General Appearance: cooperative HEENT normocephalic, head/scalp atraumatic, hearing grossly normal bilaterally and moist oral mucous membranes Eyes PERRL and EOMs intact bilaterally Neck no lymphadenopathy and supple Neck Narrative: Tracheostomy appliance in place. Resp normal respiratory effort, no retractions, no use of accessory muscles and clear to auscultation bilaterally Cardio regular rate and regular rhythm GI normal to inspection, nondistended, normoactive bowel sounds, soft to palpation, non-tender and non-distended Extremity normal to inspection and full ROM Skin Skin Narrative: Patient has no evidence of rash, abscess or jaundice. Neuro oriented x3, CN's II-XII intact bilaterally, moves all extremities and no focal motor deficits Sensorium / Orientation: awake, alert, oriented to person, oriented to place and oriented to time Speech: speech normal Psych affect normal Results Medical Records Data Attestation: I reviewed the patient's medical records Lab / Micro Data Attestation: I reviewed the patient's lab results. 10/29/23 19:04 10/29/23 19:04 Labs: Laboratory Results - last 24 hr 10/29/23 19:04: WBC 10.0, RBC 4.67, Hgb 14.2, Hct 43.9, MCV 94.0, MCH 30.4, MCHC 32.3, RDW Std Deviation 47.4 H, RDW Coeff of Nick 13.7, Plt Count 211, MPV 11.2, Immature Gran % (Auto) 0.700, Neut % (Auto) 67.8, Lymph % (Auto) 20.7, [place] % (Auto) 9.0, Eos % (Auto) 1.5, Baso % (Auto) 0.3, Absolute Neuts (auto) 6.8, Absolute Lymphs (auto) 2.07, Nucleated RBC % 0, Sodium 139, Potassium 3.9, Chloride 103, Carbon Dioxide 31.0, Anion Gap 5, BUN 31 H, Creatinine 1.16, Est GFR (MDRD) Af Amer 81, Est GFR (MDRD) Non-Af 67, BUN/Creatinine Ratio 26.7 H, Glucose 112 H, Lactic Acid 1.8, Calcium 8.7 Imaging Radiology Impression Chest X-Ray 10/29/23 19:11 IMPRESSION: No acute findings in the chest. Electronically Signed: Josef Atkinson MD at 19:50 EDT , Assessment & Plan Assessment/Plan (1) Transient hypotension: (2) Near syncope: (3) Mild dehydration: (4) Adverse drug reaction: QUALIFIERS: Encounter type: initial encounter Qualified Code(s): T50.905A - Adverse effect of unspecified drugs, medicaments and biological substances, initial encounter (5) COVID-19: (6) Overweight (BMI 25.0-29.9): (7) Acute on chronic urinary retention: (8) Asthma-COPD overlap syndrome: PLAN: Plan 1. Transient hypotension of 75/51 mmHg causing Near Syncope due to Dehydration; evidenced by BUN/creatinine ratio of 26.7 present on admission - Admit to PCU under observation status. Aggressively volume resuscitate and recheck renal indices in AM to ensure appropriate response to treatment. 2. Essential hypertension with Adverse Drug Reaction to combination of Lasix and Metoprolol precipitating #1 - Hold Lasix and Metoprolol until volume status has been corrected. 3. Suspected relative adrenal insufficiency in the setting of recent COVID-19 causing headache, malaise and near syncope complicating #1 & #2 with inappropriately normal random cortisol level of 5 ug/dL present on admission in spite of profound, symptomatic hypotension in patient on chronic Budesonide BID - Patient given stress-dose Hydrocortisone in the ER which will be continued and then will need to be slowly tapered. Random cortisol level also ordered in ER to confirm suspicion. 4. Overweight; with BMI of 27.2 this admission plus MARYJO and history of vocal cord dysfunction; with tracheostomy still in place compounding #1 - #3 - Weight loss will be recommended. Check TSH. Continue supplemental oxygen as previous. 5. BPH; with [id number] urinary retention and recent Mayes catheter placement - Check UA. Otherwise continue supportive care. 6. Hyperlipidemia - Resume statin. 7. Hypothyroidism; s/p thyroidectomy - Maintain current dose of Synthroid and check TSH in light of #1. 8. Parkinson's disease - Continue Sinemet as previous. 9. History of tobacco abuse; with subsequent asthma/COPD - Stable with no evidence of acute flare. Resume prn nebulizers as before. 10. History of cricopharyngeal dysphagia - Noted. 11. History of chronic diastolic CHF; with preserved LVEF - Stable. 12. History of DVT - Noted. 13. History of coronary artery stenosis; s/p RCA stent (2021) - Stable. 14. history of Angioedema - Noted. 15. History of proctitis - Noted with no evidence of recurrence at this time. 16. OA; of the Right hip - Give Tylenol prn. 17. DVT prophylaxis - Lovenox 40 mg sq daily. Total time: Approximately 75 minutes. Charges/Coding Visit Charges OBSV E&M: 10599 Observ/hosp same date L2
[2023-10-29] MEDS: Hydrocortisone Sod Succinate 100 MG/2 ML Vial IV (21:24)
[2023-10-29] MEDS: Lactated Ringers 1,000 ML 100 ML IV (22:41)
[2023-10-29] MEDS: 0.9% Saline Lock 10 ML Syringe IV (22:42)
[2023-10-29] MEDS: Carbidopa/Levodopa 25/100 Tablet PO (22:42)
[2023-10-29] MEDS: metroNIDAZOLE 500 MG Tablet PO (22:42)
[2023-10-29] MEDS: Ciprofloxacin 500 MG Tablet PO (22:42)
[2023-10-29] MEDS: Ipratropium/Albuterol Sulfate 3 ML AMPUL.NEB INHALATION (23:41)
[2023-10-30] VITALS (8 sets, daily range): BP systolic 107–121; BP diastolic 65–76; PULSE 60–73; RESP 16–20; TEMP 36.2–36.9; O2SAT 91–96; BMI 27.2
[2023-10-30] MEDS: Hydrocortisone Sod Succinate 100 MG/2 ML Vial 50 MG IV ×3 (06:26→21:37)
[2023-10-30] MEDS: Carbidopa/Levodopa 25/100 Tablet PO ×3 (06:27→15:55)
[2023-10-30] MEDS: Levothyroxine 150 MCG Tablet PO (06:27)
[2023-10-30 06:54] LABS: Absolute Lymphocyte Count 1.07 X10^3/uL (0.83-4.51); Absolute Neutrophil Count 6.3 X10^3/uL (2.0-7.7); Basophil# 0.01 X10^3/uL; Basophil% 0.1 % (0-1); Eosinophil# 0.06 X10^3/uL; Eosinophils% 0.8 % (0-5); Hematocrit 40.8 % (40-54); Hemoglobin 13.2 g/dL (13.0-16.5); Lymphocyte # 1.07 X10^3/ul (0.83-4.51); Lymphocyte % 13.5 % (19-41); Mean Corp Hgb Conc 32.4 g/dL (32-36); Mean Corpuscular Hgb 30.6 pg (27.0-32.0); Mean Corpuscular Volume 94.4 fL (80-94); Mean Platelet Vol. 10.8 fl (6.2-12.0); Monocyte# 0.47 X10^3/uL; Monocyte% 5.9 % (0-10); NRBC Flagged by Analyzer 0 % (0-5); Neutrophil # 6.27 X10^3/uL (2.7-7.7); Neutrophil % 78.8 % (47-70); Platelet Count 210 K/mm3 (150-450); RBC Distribution Width CV 13.8 % (11.6-14.6); RBC Distribution Width SD 47.9 fl (35.1-43.9); Red Blood Count 4.32 M/mm3 (4.6-6.2)
[2023-10-30 08:18] LABS: AST(SGOT) 11 U/L (15-37); Alanine Aminotransfer ALT/SGPT 12 U/L (16-61); Albumin, Serum 2.8 g/dL (3.2-5.0); Alkaline Phosphatase 58 U/L (45-117); Anion Gap 5 (5-15); BUN 21 mg/dL (7-18); BUN/Creat Ratio 25.1 RATIO (10-20); Calcium,Total 8.3 mg/dL (8.5-10.1); Chloride 106 mmol/L (98-107); Creatinine, Serum 0.84 mg/dL (0.70-1.30); EST Glomerular Filtration Rate 98 mL/min (>60); Est Glom Filt Rate - Afr Amer 118 mL/min (>60); Estimated Creatinine Clearance 87.67 ml/min; Globulin 2.9 g/dL (2.2-4.2); Glucose 106 mg/dL (74-106); Magnesium 2.2 mg/dL (1.6-2.6); Phosphorus 3.9 mg/dL (2.5-4.9); Potassium 4.1 mmol/L (3.5-5.1); Protein, Total 5.7 g/dL (6.4-8.2); Sodium Level 137 mmol/L (136-145)
[2023-10-30] MEDS: Lactated Ringers 1,000 ML 100 ML IV ×2 (09:46→18:50)
[2023-10-30] MEDS: Budesonide Respules 0.5 MG/2 ML AMPUL.NEB. 1 MG INHALATION ×2 (09:47→19:50)
[2023-10-30] MEDS: Aspirin 81 MG TAB.CHEW PO (11:30)
[2023-10-30] MEDS: Ciprofloxacin 500 MG Tablet PO ×2 (11:31→21:36)
[2023-10-30] MEDS: Nitrofurantoin Macrocrystals 100 MG Capsule PO (11:31)
[2023-10-30] MEDS: Atorvastatin Calcium 10 MG Tablet PO (11:31)
[2023-10-30] MEDS: Ezetimibe 10 MG Tablet PO (11:32)
[2023-10-30] MEDS: Clopidogrel Bisulfate 75 MG Tablet PO (11:32)
[2023-10-30] MEDS: Enoxaparin 40 MG/0.4 ML Syringe SC (11:32)
[2023-10-30] MEDS: metroNIDAZOLE 500 MG Tablet PO ×2 (11:32→21:36)
[2023-10-30] MEDS: Tamsulosin HCl 0.4 MG Capsule PO (11:32)
--- NOTE | 2023-10-30 15:39 | PCM.PN.HOSP ---
Reason for Visit Reason for Visit: Diagnoses Overweight (10/29/23) Dehydration (10/29/23) Hypotension, unspecified (10/29/23) Other specified chronic obstructive pulmonary disease (10/29/23) Retention of urine, unspecified (10/29/23) Syncope and collapse (10/29/23) Adverse effect of unspecified drugs, medicaments and biological substances, initial encounter (10/29/23) COVID-19 (10/29/23) Subjective Subjective Patient feeling slightly better but overall generally weak and feels very congested and like his breathing has not been improving, he is very concerned about his ability to manage and function given current weakness and debility and feeling unwell Objective Data Objective Data Vital Signs: Vital Signs Temp Pulse Resp BP Pulse Ox O2 Del Method O2 Flow Rate 98.5 F 73 18 113/76 94 Room Air 6 10/30/23 09:40 10/30/23 09:51 10/30/23 09:51 10/30/23 11:46 10/30/23 14:21 10/30/23 10:00 10/30/23 09:51 FiO2 28 10/30/23 09:51 Oxygen Flow Rate (L/min) 6 Oxygen Delivery Method Room Air Weight: 83.7 kg Body Mass Index (BMI) 27.2 Intake & Output: Intake and Output for Last 24 Hours 10/28/23 10/29/23 10/30/23 23:59 23:59 23:59 Intake Total 1000 / 1120 1240 / 1240 Output Total 725 / 725 Balance 1000 / 695 515 / 515 Medical Nutrition Assessment Dietitian: Malnutrition Criteria Met Start: 10/30/23 15:19 Freq: Status: Active Protocol: Document 10/30/23 15:19 RMA (Rec: 10/30/23 15:19 RMA [id number]) Nutrition Malnutrition Evidence of Malnutrition Exists Yes Malnutrition (severe): Chronic Evidenced By Suboptimal Energy Intake ( Severe),Weight Loss (Severe) Clinical Problem Chronic Disease or Condition Related Malnutrition Etiology Severe protein-calorie malnutrition in the context of chronic disease related to inadequate oral intake Signs/Symptoms as evidenced by ~7-8% unintentional weight loss x 3- 4 months and PO meeting less than 50% estimated nutrition needs x 3 months Status Active Problem Recommendation Dietitian Recommendations/Changes Will change diet to cardiac. Will add 240mL chocolate ensure plus HP w/ breakfast and dinner meals. Adjust ONS as needed to optimize PO and stabilize weight. Lab / Micro Data 10/30/23 06:45 10/30/23 06:45 Labs: Laboratory Results - last 24 hr 10/29/23 19:04: WBC 10.0, RBC 4.67, Hgb 14.2, Hct 43.9, MCV 94.0, MCH 30.4, MCHC 32.3, RDW Std Deviation 47.4 H, RDW Coeff of Nick 13.7, Plt Count 211, MPV 11.2, Immature Gran % (Auto) 0.700, Neut % (Auto) 67.8, Lymph % (Auto) 20.7, [place] % (Auto) 9.0, Eos % (Auto) 1.5, Baso % (Auto) 0.3, Absolute Neuts (auto) 6.8, Absolute Lymphs (auto) 2.07, Nucleated RBC % 0, Sodium 139, Potassium 3.9, Chloride 103, Carbon Dioxide 31.0, Anion Gap 5, BUN 31 H, Creatinine 1.16, Est GFR (MDRD) Af Amer 81, Est GFR (MDRD) Non-Af 67, BUN/Creatinine Ratio 26.7 H, Glucose 112 H, Lactic Acid 1.8, Calcium 8.7 10/29/23 20:32: Cortisol 5.00 10/30/23 06:45: WBC 8.0, RBC 4.32 L, Hgb 13.2, Hct 40.8, MCV 94.4 H, MCH 30.6, MCHC 32.4, RDW Std Deviation 47.9 H, RDW Coeff of Nick 13.8, Plt Count 210, MPV 10.8, Immature Gran % (Auto) 0.900, Neut % (Auto) 78.8 H, Lymph % (Auto) 13.5 L, [place] % (Auto) 5.9, Eos % (Auto) 0.8, Baso % (Auto) 0.1, Absolute Neuts (auto) 6.3, Absolute Lymphs (auto) 1.07, Nucleated RBC % 0, Sodium 137, Potassium 4.1, Chloride 106, Carbon Dioxide 26.0, Anion Gap 5, BUN 21 H, Creatinine 0.84, Estim Creat Clear Calc 87.67, Est GFR (MDRD) Af Amer 118, Est GFR (MDRD) Non-Af 98, BUN/Creatinine Ratio 25.1 H, Glucose 106, Calcium 8.3 L, Phosphorus 3.9, Magnesium 2.2, Total Bilirubin 1.00, AST 11 L, ALT 12 L, Alkaline Phosphatase 58, Total Protein 5.7 L, Albumin 2.8 L, Globulin 2.9, Albumin/Globulin Ratio 1.0, TSH 1.300 Radiography Diagnostic Testing: Radiology Impression Chest X-Ray 10/29/23 19:11 IMPRESSION: No acute findings in the chest. Electronically Signed: Josef Atkinson MD at 19:50 EDT , Physical Exam Narrative General: Alert, appears to generally not feel well HEENT: Atraumatic, normocephalic Eyes: Anicteric, normal conjunctiva, extraocular movements grossly intact Neck: Supple, trach noted Respiratory: Trach noted, transmitted upper airway sounds Cardiovascular: Regular rate GI: Soft, nontender, nondistended Extremities: No significant pitting edema edema Musculoskeletal: Moving all extremities Neuro: No overt focal neurological deficits Skin: No rashes appreciated Psych: Cooperative Assessment & Plan Assessment/Plan (1) Transient hypotension: PLAN: Plan # Symptomatic hypotension -Suspect this is multifactorial with poor p.o. intake, mild hydration, metoprolol, possible component of autonomic instability with his Parkinson's -Cannot rule out adrenal insufficiency with a random cortisol of 5. Patient was recently on dexamethasone though with unclear last dose and this would suppress cortisol if he was taking this recently -Did respond to fluids and stress dose steroids however, we will plan to start to wean stress dose steroids in next 1 to 2 days pending progress -Decrease fluids, holding Lasix -Patient did have recent echo 07/25/2023 with some mild left ventricular hypertrophy and EF 65%, given this was recent do not think this needs to be repeated at this time # Hypoxia in light of recent COVID-19 infection and chronic COPD -Patient required O2 overnight -COVID-positive 10/20 and was prescribed dexamethasone -Should be able to DC precautions after 10 days -Mucinex -Scheduled nebs -Continue home budesonide -No wheezing or suggestion of COPD exacerbation -Chest x-ray with no acute findings or evidence of fluid overload or pneumonia # Generalized weakness -Possibly secondary to dehydration and recent COVID -PT/OT -Case management consult #Hx CAD s/ stenting -Continue aspirin, Plavix, continue statin -Can consider holding statin however suspect his generalized weakness is due to other underlying etiologies #Hx MARYJO -Patient now has tracheostomy #Parkinson's disease -Patient on carbidopa levodopa, continue #Hx Mild LVH -Takes Lasix chronically, Somewhat volume depleted so this has been held -Recent echo 07/25/2023 with some mild left ventricular hypertrophy and EF 65% but noted normal diastole for age at the time #Chronic BPH with obstruction/urinary retention -Was seen in the ED 10/28 with urinary retention on an outpatient basis which necessitated Mayes catheter -Will continue Mayes catheter, will likely need to follow-up with urology upon discharge # History of recent proctitis -Seen on CT abdomen pelvis last admission -Patient was on Cipro and Flagyl with instructions to complete 10-day course-will add stop dates #Hypothyroidism -Continue Synthroid -TSH checked and within normal limits # Vocal cord dysfunction status post tracheostomy -Follows with ENT at [facility] in [place] [facility] locally -Has upcoming appointment in November for trach change #DVT ppx: [facility] Frida Newell MD Time spent in the patient's overall evaluation,decision-making process, review of diagnostic data, adjustment of management, discussion with other providers, nursing nursing and ancillary staff involved in patient's care documentation, 51 minutes Charges/Coding Visit Charges Inpatient E&M: 49103 Subs Hosp L3
[2023-10-30] MEDS: Ipratropium/Albuterol Sulfate 3 ML AMPUL.NEB INHALATION (19:50)
[2023-10-30] MEDS: guaiFENesin 1,200 MG Tablet 1200 MG PO (21:36)
[2023-10-30] MEDS: 0.9% Saline Lock 10 ML Syringe IV (21:39)
[2023-10-31] VITALS (7 sets, daily range): BP systolic 92–132; BP diastolic 54–92; PULSE 57–82; RESP 18; TEMP 36.1–36.6; O2SAT 93–97; BMI 28.5
[2023-10-31] MEDS: Hydrocortisone Sod Succinate 100 MG/2 ML Vial 50 MG IV ×2 (05:42→22:01)
[2023-10-31] MEDS: Levothyroxine 150 MCG Tablet PO (05:42)
[2023-10-31] MEDS: Carbidopa/Levodopa 25/100 Tablet PO ×3 (05:46→15:34)
[2023-10-31 06:43] LABS: Absolute Lymphocyte Count 1.25 X10^3/uL (0.83-4.51); Absolute Neutrophil Count 7.7 X10^3/uL (2.0-7.7); Basophil# 0.02 X10^3/uL; Basophil% 0.2 % (0-1); Eosinophil# 0.09 X10^3/uL; Eosinophils% 0.9 % (0-5); Hematocrit 41.9 % (40-54); Hemoglobin 13.5 g/dL (13.0-16.5); Lymphocyte # 1.25 X10^3/ul (0.83-4.51); Lymphocyte % 12.8 % (19-41); Mean Corp Hgb Conc 32.2 g/dL (32-36); Mean Corpuscular Hgb 30.7 pg (27.0-32.0); Mean Corpuscular Volume 95.2 fL (80-94); Monocyte# 0.65 X10^3/uL; Monocyte% 6.7 % (0-10); NRBC Flagged by Analyzer 0 % (0-5); Neutrophil # 7.65 X10^3/uL (2.7-7.7); Neutrophil % 78.7 % (47-70); Platelet Count 198 K/mm3 (150-450); RBC Distribution Width CV 13.8 % (11.6-14.6); RBC Distribution Width SD 48.5 fl (35.1-43.9); White Blood Count 9.7 K/mm3 (4.4-11.0)
[2023-10-31] MEDS: Ipratropium/Albuterol Sulfate 3 ML AMPUL.NEB INHALATION ×3 (07:02→19:44)
[2023-10-31] MEDS: Budesonide Respules 0.5 MG/2 ML AMPUL.NEB. 1 MG INHALATION (07:02)
[2023-10-31 07:25] LABS: Anion Gap 3 (5-15); BUN 15 mg/dL (7-18); BUN/Creat Ratio 19.1 RATIO (10-20); Calcium,Total 8.5 mg/dL (8.5-10.1); Chloride 106 mmol/L (98-107); Creatinine, Serum 0.78 mg/dL (0.70-1.30); EST Glomerular Filtration Rate 105 mL/min (>60); Est Glom Filt Rate - Afr Amer 128 mL/min (>60); Estimated Creatinine Clearance 100.81 ml/min; Glucose 116 mg/dL (74-106); Magnesium 2.3 mg/dL (1.6-2.6); Phosphorus 3.2 mg/dL (2.5-4.9); Sodium Level 137 mmol/L (136-145)
--- NOTE | 2023-10-31 08:31 | PCM.PN.HOSP ---
Reason for Visit Reason for Visit: Diagnoses Overweight (10/30/23) Dehydration (10/30/23) Hypotension, unspecified (10/30/23) Other specified chronic obstructive pulmonary disease (10/30/23) Retention of urine, unspecified (10/30/23) Syncope and collapse (10/30/23) Adverse effect of unspecified drugs, medicaments and biological substances, initial encounter (10/30/23) COVID-19 (10/30/23) Subjective Subjective Patient feeling similar today, occasionally will still feel lightheaded and sweaty and this seems to come and go, still congested and breathing roughly the same Objective Data Objective Data Vital Signs: Vital Signs Temp Pulse Resp BP Pulse Ox O2 Del Method O2 Flow Rate 96.9 F L 60 18 132/92 H 93 Room Air 6 10/31/23 03:52 10/31/23 07:03 10/31/23 07:03 10/31/23 03:52 10/31/23 07:03 10/31/23 03:54 10/31/23 07:03 FiO2 28 10/31/23 07:03 Oxygen Flow Rate (L/min) 6 Oxygen Delivery Method Room Air Weight: 87.5 kg Body Mass Index (BMI) 28.5 Intake & Output: Intake and Output for Last 24 Hours 10/29/23 10/30/23 10/31/23 23:59 23:59 23:59 Intake Total 1000 / 1120 2701.67 / 2701.67 Output Total 1375 / 1375 250 / 250 Balance 1000 / 695 1326.67 / 1326.67 -250 / -250 Medical Nutrition Assessment Dietitian: Malnutrition Criteria Met Start: 10/30/23 15:19 Freq: Status: Active Protocol: Document 10/30/23 15:19 RMA (Rec: 10/30/23 15:19 RMA [id number]) Nutrition Malnutrition Evidence of Malnutrition Exists Yes Malnutrition (severe): Chronic Evidenced By Suboptimal Energy Intake ( Severe),Weight Loss (Severe) Clinical Problem Chronic Disease or Condition Related Malnutrition Etiology Severe protein-calorie malnutrition in the context of chronic disease related to inadequate oral intake Signs/Symptoms as evidenced by ~7-8% unintentional weight loss x 3- 4 months and PO meeting less than 50% estimated nutrition needs x 3 months Status Active Problem Recommendation Dietitian Recommendations/Changes Will change diet to cardiac. Will add 240mL chocolate ensure plus HP w/ breakfast and dinner meals. Adjust ONS as needed to optimize PO and stabilize weight. Lab / Micro Data 10/31/23 06:32 10/31/23 06:32 Labs: Laboratory Results - last 24 hr 10/31/23 06:32: WBC 9.7, RBC 4.40 L, Hgb 13.5, Hct 41.9, MCV 95.2 H, MCH 30.7, MCHC 32.2, RDW Std Deviation 48.5 H, RDW Coeff of Nick 13.8, Plt Count 198, MPV 11.0, Immature Gran % (Auto) 0.700, Neut % (Auto) 78.7 H, Lymph % (Auto) 12.8 L, [place] % (Auto) 6.7, Eos % (Auto) 0.9, Baso % (Auto) 0.2, Absolute Neuts (auto) 7.7, Absolute Lymphs (auto) 1.25, Nucleated RBC % 0, Sodium 137, Potassium 4.0, Chloride 106, Carbon Dioxide 28.0, Anion Gap 3 L, BUN 15, Creatinine 0.78, Estim Creat Clear Calc 100.81, Est GFR (MDRD) Af Amer 128, Est GFR (MDRD) Non-Af 105, BUN/Creatinine Ratio 19.1, Glucose 116 H, Calcium 8.5, Phosphorus 3.2, Magnesium 2.3 Physical Exam Narrative General: Alert, appears to generally not feel well HEENT: Atraumatic, normocephalic Eyes: Anicteric, normal conjunctiva, extraocular movements grossly intact Neck: Supple, trach noted Respiratory: Trach noted, transmitted upper airway sounds Cardiovascular: Regular rate GI: Soft, nontender, nondistended Extremities: No significant pitting edema edema Musculoskeletal: Moving all extremities Neuro: No overt focal neurological deficits Skin: No rashes appreciated Psych: Cooperative Assessment & Plan Assessment/Plan (1) Transient hypotension: PLAN: Plan # Symptomatic hypotension -Suspect this is multifactorial with poor p.o. intake, mild hydration, metoprolol, possible component of autonomic instability with his Parkinson's -Cannot rule out adrenal insufficiency with a random cortisol of 5. Patient was recently on dexamethasone though with unclear last dose and this would suppress cortisol if he was taking this recently -Did respond to fluids and stress dose steroids however, we will plan to start to wean stress dose steroids in next 1 to 2 days pending progress -Decrease fluids, holding Lasix -Patient did have recent echo 07/25/2023 with some mild left ventricular hypertrophy and EF 65%, given this was recent do not think this needs to be repeated at this time -10/30: Improving with stress dose steroids and fluids, will hold further fluids at this time and will begin to wean stress dose steroids to twice daily. Of note before this was decreased patient's blood pressure was still variable. Pending patient progress and symptoms may need to consider further workup or endocrinology referral. Patient follows with Dr. 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 Continue PT/OT. When patient is discharged he will benefit from following with neurology office and orthostatic precautions. Additionally will hold tamsulosin as patient already has Mayes in place and this can contribute to orthostatic hypotension. Also of note patient followed with cardiology outpatient and had a normal stress test 07/25/2023 and echocardiogram 07/25/2023 with EF of 65% and normal diastole for age # Hypoxia in light of recent COVID-19 infection and chronic COPD -Patient required O2 overnight-found to be on 6 L trach collar overnight -COVID-positive 10/20 and was prescribed dexamethasone -Should be able to DC precautions after 10 days -Mucinex -Scheduled nebs -Continue home budesonide -No wheezing or suggestion of COPD exacerbation -Chest x-ray with no acute findings or evidence of fluid overload or pneumonia -10/30: Continuing scheduled nebs, has had some respiratory problems over the last several months that were thought to be due to vocal cord dysfunction and patient had tracheostomy placed in [facility] with reported improvement in the symptoms, establish with pulmonary medicine office, no longer needs CPAP now that he is tracheostomy. Continue Pulmicort, weaning steroids as above. Patient wears O2 through trach collar overnight. Presently 95% on room air. Chest x-ray did not reveal any new infiltrate, has a cough with pasty sputum so we will try to send this for culture however patient afebrile with no infiltrate and no white blood cell count elevation so do not have high suspicion for new or acute pneumonia but will monitor closely # Generalized weakness -Possibly secondary to dehydration and recent COVID -PT/OT -Case management consult -10/30: Continue to encourage mobilization as tolerated #Hx CAD s/ stenting -Continue aspirin, Plavix, continue statin -Can consider holding statin however suspect his generalized weakness is due to other underlying etiologies -10/30: Appears per neurology note the patient had statin changed previously without significant improvement in symptoms so we will continue at this time #Hx MARYJO -Patient now has tracheostomy -10/30: Follows with pulmonary, reportedly symptoms resolved with tracheostomy placement and no longer requires CPAP #Parkinson's disease -Patient on carbidopa levodopa, continue -10/30: Follows with neurology, may have component of autonomic dysfunction that will need to be continued to be followed and managed by neurology #Hx Mild LVH -Takes Lasix chronically, Somewhat volume depleted so this has been held -Recent echo 07/25/2023 with some mild left ventricular hypertrophy and EF 65% but noted normal diastole for age at the time -10/30: Improvement in blood pressure, hold fluids but will not yet resume Lasix #Chronic BPH with obstruction/urinary retention -Was seen in the ED 10/28 with urinary retention on an outpatient basis which necessitated Mayes catheter -Will continue Mayes catheter, will likely need to follow-up with urology upon discharge -10/30: Continue Mayes catheter, UA prior to Mayes placement not suggestive of UTI # History of recent proctitis -Seen on CT abdomen pelvis last admission -Patient was on Cipro and Flagyl with instructions to complete 10-day course-will add stop dates -10/30: Remains on Cipro Flagyl with stop date #Hypothyroidism -Continue Synthroid -TSH checked and within normal limits -10/30: TSH is 1.3 on 10/29, do not suspect that this is contributing to the above # Vocal cord dysfunction status post tracheostomy -Follows with ENT at [facility] in [place] [facility] locally -Has upcoming appointment in November for trach change -10/30: Patient had respiratory problems over the past several months and followed with [facility] ENT ultimately requiring tracheostomy placement with improvement of symptoms, will need to follow-up further on discharge #DVT ppx: Lilibeth Newell MD Charges/Coding Visit Charges Inpatient E&M: 67124 Subs Hosp L2
[2023-10-31] MEDS: Aspirin 81 MG TAB.CHEW PO (09:58)
[2023-10-31] MEDS: Enoxaparin 40 MG/0.4 ML Syringe SC (09:58)
[2023-10-31] MEDS: Ezetimibe 10 MG Tablet PO (09:58)
[2023-10-31] MEDS: Atorvastatin Calcium 10 MG Tablet PO (09:59)
[2023-10-31] MEDS: metroNIDAZOLE 500 MG Tablet PO ×2 (09:59→22:01)
[2023-10-31] MEDS: Tamsulosin HCl 0.4 MG Capsule PO (09:59)
[2023-10-31] MEDS: guaiFENesin 1,200 MG Tablet 1200 MG PO ×2 (09:59→22:01)
[2023-10-31] MEDS: Clopidogrel Bisulfate 75 MG Tablet PO (09:59)
[2023-10-31] MEDS: Ciprofloxacin 500 MG Tablet PO ×2 (09:59→22:01)
--- NOTE | 2023-10-31 15:49 | CASEMGMT ---
Discharge Planning HH resumption referral sent to [facility]. Keren Mccollum DC Planning Asst.
--- NOTE | 2023-10-31 17:09 | CASEMGMT ---
JAZIEL UMAÑA chart review: Patient was admitted 10/21-10/23/23 for covid and UTI. See assessment from 10/22/23. Patient was discharged to home with family support and [facility]. Patient return to the ED on 10/28/23 for complaint and discharge home with rothman. Patient returned again on 10/29/23 for lightheadedness and was admitted for symptomatic hypotension secondary to dehydration. Patient was placed on IV fluids. JAZIEL UMAÑA discussed readmission and discharge planning with patient. Patient states he was taking medications as prescribed. Patient states he still has to schedule PCP appt. Patient states [facility] had been coming out to see patient. Patient wishes to return home with resumption of [facility]. Patient denies additional needs at discharge. Patient had no further questions or concerns. JAZIEL UMAÑA update [facility] and resumption order sent. CM will continue to follow this patient and plan for a safe discharge.
[2023-10-31] MEDS: 0.9% Saline Lock 10 ML Syringe IV (22:04)
[2023-11-01] VITALS (11 sets, daily range): BP systolic 85–142; BP diastolic 64–84; PULSE 62–86; RESP 16–20; TEMP 36.1–36.6; O2SAT 92–98; BMI 29.0
[2023-11-01] MEDS: Carbidopa/Levodopa 25/100 Tablet PO ×3 (06:03→16:33)
[2023-11-01] MEDS: Levothyroxine 150 MCG Tablet PO (06:03)
[2023-11-01] MEDS: Ipratropium/Albuterol Sulfate 3 ML AMPUL.NEB INHALATION ×3 (07:10→20:13)
[2023-11-01] MEDS: Budesonide Respules 0.5 MG/2 ML AMPUL.NEB. 1 MG INHALATION ×2 (07:20→20:13)
[2023-11-01 08:32] LABS: Hematocrit 42.9 % (40-54); Hemoglobin 13.8 g/dL (13.0-16.5); Mean Corp Hgb Conc 32.2 g/dL (32-36); Mean Corpuscular Hgb 30.5 pg (27.0-32.0); Mean Corpuscular Volume 94.9 fL (80-94); Mean Platelet Vol. 11.6 fl (6.2-12.0); Platelet Count 196 K/mm3 (150-450); RBC Distribution Width CV 14.1 % (11.6-14.6); RBC Distribution Width SD 49.2 fl (35.1-43.9); Red Blood Count 4.52 M/mm3 (4.6-6.2); White Blood Count 8.2 K/mm3 (4.4-11.0)
[2023-11-01 08:52] LABS: Anion Gap 6 (5-15); BUN 16 mg/dL (7-18); BUN/Creat Ratio 19.7 RATIO (10-20); Calcium,Total 8.5 mg/dL (8.5-10.1); Chloride 107 mmol/L (98-107); Creatinine, Serum 0.81 mg/dL (0.70-1.30); EST Glomerular Filtration Rate 101 mL/min (>60); Est Glom Filt Rate - Afr Amer 123 mL/min (>60); Estimated Creatinine Clearance 100.33 ml/min; Glucose 100 mg/dL (74-106); Potassium 3.9 mmol/L (3.5-5.1); Sodium Level 140 mmol/L (136-145)
[2023-11-01] MEDS: Albuterol 2.5 MG/3 ML VIAL.NEB. INHALATION (10:56)
[2023-11-01] MEDS: Ciprofloxacin 500 MG Tablet PO (11:01)
[2023-11-01] MEDS: Aspirin 81 MG TAB.CHEW PO (11:01)
[2023-11-01] MEDS: Nitrofurantoin Macrocrystals 100 MG Capsule PO (11:02)
[2023-11-01] MEDS: Enoxaparin 40 MG/0.4 ML Syringe SC (11:02)
[2023-11-01] MEDS: metroNIDAZOLE 500 MG Tablet PO (11:02)
[2023-11-01] MEDS: Atorvastatin Calcium 10 MG Tablet PO (11:02)
[2023-11-01] MEDS: guaiFENesin 1,200 MG Tablet 1200 MG PO ×2 (11:02→22:11)
[2023-11-01] MEDS: Hydrocortisone Sod Succinate 100 MG/2 ML Vial 50 MG IV ×2 (11:03→22:10)
[2023-11-01] MEDS: Clopidogrel Bisulfate 75 MG Tablet PO (11:03)
[2023-11-01] MEDS: Ezetimibe 10 MG Tablet PO (11:03)
--- NOTE | 2023-11-01 12:17 | CASEMGMT ---
Addendum entered by Kell Daniels 11/01/23 14:49: Green sheet on chart for resumption of HHC. Addendum entered by Kell Daniels 11/01/23 12:40: Pt nurse aware pt is requesting education on rothman and leg bag. Original Note: RN CM into pt room, pt sitting up in chair. Pt states he wants to resume HHC with [facility]. Pt has not had a catheter at home in the past. He would like education for this. Will notify pt nurse. Pt states he has all of his suction supplies at home and he is I with his trach along with his . He states his is able to help with care. Pt denies any further homegoing needs.
--- NOTE | 2023-11-01 13:47 | PCM.PN.HOSP ---
Reason for Visit Reason for Visit: Diagnoses Overweight (10/30/23) Dehydration (10/30/23) Hypotension, unspecified (10/30/23) Other specified chronic obstructive pulmonary disease (10/30/23) Retention of urine, unspecified (10/30/23) Syncope and collapse (10/30/23) Adverse effect of unspecified drugs, medicaments and biological substances, initial encounter (10/30/23) COVID-19 (10/30/23) Objective Data Objective Data Vital Signs: Vital Signs Temp Pulse Resp BP Pulse Ox O2 Del Method O2 Flow Rate 97.4 F L 77 19 H 97/64 94 Room Air 6 11/01/23 10:56 11/01/23 10:57 11/01/23 10:57 11/01/23 10:56 11/01/23 10:56 11/01/23 10:56 11/01/23 07:10 FiO2 28 11/01/23 07:10 Oxygen Flow Rate (L/min) 6 Oxygen Delivery Method Room Air Weight: 196 lb 3.382 oz Body Mass Index (BMI) 29.0 Intake & Output: Intake and Output for Last 24 Hours 10/30/23 10/31/23 11/01/23 23:59 23:59 23:59 Intake Total 2701.67 / 2701.67 995 / 995 Output Total 1375 / 1375 250 / 700 450 / 450 Balance 1326.67 / 1326.67 745 / 295 -450 / -450 Medical Nutrition Assessment Dietitian: Malnutrition Criteria Met Start: 10/30/23 15:19 Freq: Status: Active Protocol: Document 10/30/23 15:19 RMA (Rec: 10/30/23 15:19 RMA [id number]) Nutrition Malnutrition Evidence of Malnutrition Exists Yes Malnutrition (severe): Chronic Evidenced By Suboptimal Energy Intake ( Severe),Weight Loss (Severe) Clinical Problem Chronic Disease or Condition Related Malnutrition Etiology Severe protein-calorie malnutrition in the context of chronic disease related to inadequate oral intake Signs/Symptoms as evidenced by ~7-8% unintentional weight loss x 3- 4 months and PO meeting less than 50% estimated nutrition needs x 3 months Status Active Problem Recommendation Dietitian Recommendations/Changes Will change diet to cardiac. Will add 240mL chocolate ensure plus HP w/ breakfast and dinner meals. Adjust ONS as needed to optimize PO and stabilize weight. Lab / Micro Data 11/01/23 07:13 11/01/23 07:13 Labs: Laboratory Results - last 24 hr 11/01/23 07:13: WBC 8.2, RBC 4.52 L, Hgb 13.8, Hct 42.9, MCV 94.9 H, MCH 30.5, MCHC 32.2, RDW Std Deviation 49.2 H, RDW Coeff of Nick 14.1, Plt Count 196, MPV 11.6, Sodium 140, Potassium 3.9, Chloride 107, Carbon Dioxide 27.0, Anion Gap 6, BUN 16, Creatinine 0.81, Estim Creat Clear Calc 100.33, Est GFR (MDRD) Af Amer 123, Est GFR (MDRD) Non-Af 101, BUN/Creatinine Ratio 19.7, Glucose 100, Calcium 8.5 Physical Exam Narrative Seen and examined. Patient was admitted with symptomatic hypotension and dehydration and was given IV fluid. He still feels dizzy, gait instability and disequilibrium Physical exam General: Alert, Oriented x3, Cooperative HEENT: No nystagmus. Atraumatic, PERRLA, EOMI, Normocephalic Oral: No Gingival or Mucosal Lesions/ Ulcerations Neck: Supple, No JVD, Negative Carotid Bruits Chest wall/Lungs: Air entry diminished in bilateral lung bases. No crepitation/rhonchi Cardiovascular: Orthostatic hypotension. Regular rate, Regular Rhythm, Normal S1, Normal S2, No M/G/R Abdomen: Bowel Sounds Present, Soft, Non Tender, Non-Distended : No dysuria. No renal angle tenderness. No suprapubic tenderness. Extremities: No edema, Capillary Refill Less than 3 Seconds Skin: No rashes, No breakdown Musculoskeletal: No Tenderness to Palpation of Joints or Extremities, muscle strength decreased 4+/5 at hips and knee joints Neurological: Cranial nerves II-XII grossly intact, DTR 2/4. Masked facies. Psych/Mental Status: Flat affect. Assessment & Plan Assessment/Plan (1) Transient hypotension: PLAN: Plan 63-year-old gentleman was admitted with dizziness, lightheadedness and low blood pressure, checked his BP and was 80 systolic at home. BP in ED 107/75 1. 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 Patient admitted in PCU. He still has mild dizziness lightheadedness especially when he stands up. Orthostatic blood pressures was +123/84 mmHg, heart rate 66/min on laying drops to 85/76, heart rate 86 on standing. Thigh-high OUMAR hose ordered. I talked to the patient's and went over precautionary and preventative measures like thigh-high OUMAR hose, slow change in posture. She recently saw a neurologist a month ago advised to follow-up in the next 3 months. On carbidopa levodopa 2 tablet 3 times daily AC. On hydrocortisone 50 mg IV twice daily. Patient has Mayes catheter. Tamsulosin on hold. 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 - # Hypoxia in light of recent COVID-19 infection and chronic COPD -Patient required O2 overnight-found to be on 6 L trach collar overnight -COVID-positive 10/20 and was prescribed dexamethasone: Isolation is discontinued. Continue nebulization, Mucinex, home melanocyte. Chest x-ray showed no acute finding. # Generalized weakness -Possibly secondary to dehydration and recent COVID -PT/OT. 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 Patient was seen by PT and walked more than 100 feet and impression was no further therapy recommended. - #Hx CAD s/ stenting -Continue aspirin, Plavix, continue statin -Can consider holding statin however suspect his generalized weakness is due to other underlying etiologies -10/30: Appears per neurology note the patient had statin changed previously without significant improvement in symptoms so we will continue at this time #Hx MARYJO -Patient now has tracheostomy -No longer CPAP required. Tracheostomy time was done for vocal cord dysfunction. #Parkinson's disease -Patient on carbidopa levodopa, continue -10/30: Follows with neurology, may have component of autonomic dysfunction that will need to be continued to be followed and managed by neurology #Hx Mild LVH -Takes Lasix chronically, Somewhat volume depleted so this has been held -Recent echo 07/25/2023 with some mild left ventricular hypertrophy and EF 65% but noted normal diastole for age at the time #Chronic BPH with obstruction/urinary retention -Was seen in the ED 10/28 with urinary retention on an outpatient basis which necessitated Mayes catheter continue Mayes catheter, will likely need to follow-up with urology upon discharge # History of recent proctitis -Seen on CT abdomen pelvis last admission 10/31: Patient completed Cipro and Flagyl today #Hypothyroidism -Continue Synthroid -TSH checked and within normal limits # Vocal cord dysfunction status post tracheostomy -Follows with ENT at [facility] in [place] [facility] locally -Has upcoming appointment in November for trach change #DVT ppx: Lovenox Charges/Coding Visit Charges Inpatient E&M: 34271 Subs Hosp L2
--- NOTE | 2023-11-01 15:37 | CASEMGMT ---
Physician called SW and said patient's would like a phone call regarding discharge plan. Per physician patient's wants patient to go somewhere for rehab. SW told physician that patient's therapy notes indicate no further therapy needed. SW called patient's and she said absolutely not, she does not want patient to go to a usp. SW also explained therapy did see patient while at [facility] and they indicated he does not need any further therapy so he would not qualify to go to a facility anyway. She said she must have misunderstood the physician. She thought maybe he was talking about more therapy in the home again. SW let her know that the plan was to resume the home health he had prior to coming into the hospital. She was okay with this as long as it is not today. Elvie HERNÁNDEZ
[2023-11-01] MEDS: 0.9% Saline Lock 10 ML Syringe IV (22:13)
[2023-11-02 01:42] VITALS: PULSE 54; RESP 20; O2SAT 94
[2023-11-02] MEDS: Ipratropium/Albuterol Sulfate 3 ML AMPUL.NEB INHALATION ×3 (01:42→12:28)
[2023-11-02 03:26] VITALS: BMI 29.0
[2023-11-02] MEDS: Levothyroxine 150 MCG Tablet PO (06:05)
[2023-11-02] MEDS: Carbidopa/Levodopa 25/100 Tablet PO ×2 (06:06→10:39)
[2023-11-02] MEDS: Budesonide Respules 0.5 MG/2 ML AMPUL.NEB. 1 MG INHALATION (07:04)
[2023-11-02 07:07] VITALS: PULSE 70; RESP 16; O2SAT 91
[2023-11-02 07:41] VITALS: BP 117/72; PULSE 70; RESP 18; TEMP 36.7; O2SAT 97
--- NOTE | 2023-11-02 08:56 | DCINST_ITS ---
Discharge Instructions Diet Discharge Diet: No restrictions Activity Discharge Activity: Return to Normal Activity and May Not Drive Weight Bearing Status: Weight bearing as tolerated Dressing / Incision Call your doctor if you observe: Fever of 101 or Higher, Coldness, Increased Pain, Numbness or Tingling, Change in Color, Inability to urinate, Inability to have a bowel movement, Shortness of breath, Dizziness, Fainting spells, Swelling in the ankles, Chest pain, Prolonged hiccupping, Increased palpitations (irregular heartbeat) and Calf discomfort Follow Up Care When: IN 2 WEEKS Test Results: Test results from this visit will be discussed in further detail at your follow- up appointment, if applicable. Discharge Plan Admission Admit Date/Time: 10/30/23 16:24 Primary Reason for Your Visit: Symptomatic orthostatic hypotension. Attending Provider: Delfin Russell Primary Care Provider: Cisco Dozier Consulting Providers: Nikolai Freeman; Frida Newell Discharge Orders/Prescriptions Prescriptions: Continued tamsulosin 0.4 mg capsule 0.4 mg PO DAILY carbidopa-levodopa 25-100 mg tablet 2 tab PO TID Qty: 540 3RF atropine 1 % drops See Rx Instructions buccal DAILY Qty: 10 3RF Rx Instructions: Take 1 to 2 drops buccally daily budesonide 1 mg/2 mL suspension for nebulization 1 mg inhalation BID Qty: 120 11RF clopidogrel 75 mg tablet 75 mg PO DAILY Qty: 90 3RF ezetimibe 10 mg tablet 10 mg PO DAILY Qty: 90 3RF rosuvastatin 5 mg tablet 5 mg PO DAILY Qty: 90 3RF levothyroxine [Synthroid] 150 mcg tablet 150 mcg PO DAILY aspirin [Luis Alberto Chewable Aspirin] 81 mg tablet,chewable 81 mg PO DAILY Patient Comments: 1 tablet by mouth once a day metoprolol succinate 25 mg tablet extended release 24 hr 12.5 mg PO 1800 nitrofurantoin monohyd/m-cryst 100 mg capsule 100 mg PO MOWEFR (DME) Handicap placard See Rx Instructions .Route .MEDSUPPLY Qty: 1 0RF Rx Instructions: Expiration: 10/01/2025 potassium chloride 20 mEq tablet extended release 20 meq PO DAILY Qty: 90 3RF ipratropium-albuterol 0.5 mg-3 mg(2.5 mg base)/3 mL solution for nebulization 3 ml inhalation Q4H PRN PRN (Reason: SOB &/OR WHEEZING) Qty: 360 11RF Changed furosemide [Lasix] 40 mg tablet 20 mg PO 1200 PRN (Reason: Leg swelling) 30 Days Qty: 0 0RF Rx Instructions: Hold for SBP less than 100 mmHg Discontinued ciprofloxacin HCl 500 mg tablet 500 mg PO BID dexamethasone 4 mg tablet 6 mg PO DAILY metronidazole 500 mg tablet 500 mg PO BID Referrals / Follow Up: Cisco Dozier DO [Primary Care Provider] - Within 2 Weeks Christian Hernandez MD [Non-Staff -Ordering Privileges] - Within 3 Months Javier Sumner MD [Med Staff - Courtesy Staff] - Within 1 Month (For hypothalamic- pituitary adrenal axis testing for serum cortisol level 5.0. Symptomatic orthostatic hypotension, Shy-Drager syndrome.) Disposition Disposition (needs filled in before D/C Order can be placed): Home Health Service
[2023-11-02] MEDS: Enoxaparin 40 MG/0.4 ML Syringe SC (09:14)
[2023-11-02] MEDS: Hydrocortisone Sod Succinate 100 MG/2 ML Vial 50 MG IV (09:14)
[2023-11-02] MEDS: guaiFENesin 1,200 MG Tablet 1200 MG PO (09:15)
[2023-11-02] MEDS: Atorvastatin Calcium 10 MG Tablet PO (09:15)
[2023-11-02] MEDS: Ezetimibe 10 MG Tablet PO (09:15)
[2023-11-02] MEDS: Clopidogrel Bisulfate 75 MG Tablet PO (09:15)
[2023-11-02] MEDS: Aspirin 81 MG TAB.CHEW PO (09:15)
[2023-11-02] MEDS: 0.9% Saline Lock 10 ML Syringe IV (09:15)
--- NOTE | 2023-11-02 10:04 | PCM.DC.SUM ---
Providers Date of Admission: 10/30/23 Date of Discharge: 11/02/23 Primary Care Physician: Dr. Cisco Dozier DO Reason For Visit: SYMPOTOMATIC HYPOTENSION 2/2 DEHYDRATION & RELATIV Diagnosis Discharge Diagnosis (1) Transient hypotension: Status: Acute Code(s): I95.9 - Hypotension, unspecified Plan 63-year-old gentleman was admitted with dizziness, lightheadedness and low blood pressure, checked his BP and was 80 systolic at home. BP in ED 107/75 1. 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 Patient admitted in PCU. He still has mild dizziness lightheadedness especially when he stands up. Orthostatic blood pressures was +123/84 mmHg, heart rate 66/min on laying drops to 85/76, heart rate 86 on standing. Thigh-high OUMAR hose ordered. I talked to the patient's and went over precautionary and preventative measures like thigh-high OUMAR hose, slow change in posture. She recently saw a neurologist a month ago advised to follow-up in the next 3 months. On carbidopa levodopa 2 tablet 3 times daily AC. On hydrocortisone 50 mg IV twice daily. Patient has Mayes catheter. Tamsulosin on hold. Patient follows manager supply chain planning and had normal stress test and echo on 07/25/2023. 11/01: Social work also talked to the patient's and agreed for home health discharge. They do not want to go to SNF. Patient was taught about slow change in the posture, fall precaution, no driving or machine handling. Serum cortisol level was 5 which may be due to adrenal suppression from dexamethasone. Does not need slow tapering as duration of treatment was less than 3 weeks. Advised follow-up with trigonometry tutor Dr. Javier Sumner in 1 month for hypothalamic-pituitary adrenal axis testing. Patient might need fludrocortisone treatment but I will leave up to the trigonometry tutor as he is high risk of fluid retention. Patient is also on Lasix 40 mg daily at home and decreased to 20 mg as needed for leg swelling. # Hypoxia in light of recent COVID-19 infection and chronic COPD -Patient required O2 overnight-found to be on 6 L trach collar overnight -COVID-positive 10/20 and was prescribed dexamethasone: Isolation is discontinued. Continue nebulization, Mucinex, home melanocyte. Chest x-ray showed no acute finding. # Generalized weakness -Possibly secondary to dehydration and recent COVID -PT/OT. Discussed with the returned case inspectorenvironmental services manager worker. Patient was seen by PT and walked more than 100 feet and impression was no further therapy recommended. - #Hx CAD s/ stenting -Continue aspirin, Plavix, continue statin -Can consider holding statin however suspect his generalized weakness is due to other underlying etiologies -10/30: Appears per neurology note the patient had statin changed previously without significant improvement in symptoms so we will continue at this time 11/01: Recent echo from 07/25/2023 shows EF 65% with mild concentric LVH therefore chronic HFpEF. #Hx MARYJO -Patient now has tracheostomy -No longer CPAP required. Tracheostomy time was done for vocal cord dysfunction. 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 Advised to follow-up with Dr. Hernandez in 3 months as he recently saw about a month #Hx Mild LVH -Takes Lasix chronically, Somewhat volume depleted so this has been held -Recent echo 07/25/2023 with some mild left ventricular hypertrophy and EF 65% but noted normal diastole for age at the time #Chronic BPH with obstruction/urinary retention -Was seen in the ED 10/28 with urinary retention on an outpatient basis which necessitated Mayes catheter continue Mayes catheter, will likely need to follow-up with urology upon discharge # History of recent proctitis -Seen on CT abdomen pelvis last admission 10/31: Patient completed Cipro and Flagyl today #Hypothyroidism -Continue Synthroid -TSH checked and within normal limits # Vocal cord dysfunction status post tracheostomy -Follows with ENT at [facility] in [place] [facility] locally -Has upcoming appointment in November for trach change #DVT ppx: Lovenox Medications at Discharge Home Medications levothyroxine 150 mcg tablet (Synthroid) 150 mcg PO DAILY thyroid 01/13/21 aspirin 81 mg chewable tablet (Luis Alberto Chewable Low Dose Aspirin) 81 mg PO DAILY heart health 01/24/22 tamsulosin 0.4 mg capsule 0.4 mg PO DAILY prostate 05/17/22 Handicap placard #1 ea 10/01/22 potassium chloride 20 mEq tablet,extended release 20 meq PO DAILY supplement #90 tabs 07/10/23 ipratropium 0.5 mg-albuterol 3 mg (2.5 mg base)/3 mL nebulization soln 3 ml inhalation Q4H PRN PRN SOB &/OR WHEEZING #360 mL 09/18/23 atropine 1 % eye drops See Rx Instructions buccal DAILY #10 mL 10/01/23 carbidopa 25 mg-levodopa 100 mg tablet 2 tab PO TID parkinsons #540 tabs 10/01/23 clopidogrel 75 mg tablet 75 mg PO DAILY anit platelet #90 tabs 10/10/23 ezetimibe 10 mg tablet 10 mg PO DAILY as prescribed #90 tabs 10/10/23 rosuvastatin 5 mg tablet 5 mg PO DAILY cholesterol #90 tabs 10/10/23 budesonide 1 mg/2 mL suspension for nebulization 1 mg (2 mL) inhalation BID #120 mL 10/17/23 nitrofurantoin monohydrate/macrocrystals 100 mg capsule 100 mg PO MOWEFR 10/21/23 metoprolol succinate 25 mg tablet,extended release 24 hr 12.5 mg PO 1800 bp 10/29/23 furosemide 40 mg tablet (Lasix) 20 mg (1/2 x 40 mg) PO 1200 PRN Leg swelling 30 days #0 tabs 11/02/23 Physical Exam Narrative Seen and examined. Patient was admitted with symptomatic hypotension and dehydration and was given IV fluid. Symptoms of dizziness lightheadedness has resolved. Physical exam General: Alert, Oriented x3, Cooperative HEENT: No nystagmus. Atraumatic, PERRLA, EOMI, Normocephalic Oral: No Gingival or Mucosal Lesions/ Ulcerations Neck: Speaking valve tracheostomy. Supple, No JVD, Negative Carotid Bruits Chest wall/Lungs: Air entry diminished in bilateral lung bases. No crepitation/rhonchi Cardiovascular: Orthostatic hypotension. Regular rate, Regular Rhythm, Normal S1, Normal S2, No M/G/R Abdomen: Bowel Sounds Present, Soft, Non Tender, Non-Distended : No dysuria. No renal angle tenderness. No suprapubic tenderness. Extremities: No edema, Capillary Refill Less than 3 Seconds Skin: No rashes, No breakdown Musculoskeletal: No Tenderness to Palpation of Joints or Extremities, muscle strength decreased 4+/5 at hips and knee joints Neurological: Cranial nerves II-XII grossly intact, DTR 2/4. Masked facies. Psych/Mental Status: Flat affect. Medical Records Data Medical Nutrition Assessment Dietitian: Malnutrition Criteria Met Start: 10/30/23 15:19 Freq: Status: Active Protocol: Document 10/30/23 15:19 RMA (Rec: 10/30/23 15:19 RMA [id number]) Nutrition Malnutrition Evidence of Malnutrition Exists Yes Malnutrition (severe): Chronic Evidenced By Suboptimal Energy Intake ( Severe),Weight Loss (Severe) Clinical Problem Chronic Disease or Condition Related Malnutrition Etiology Severe protein-calorie malnutrition in the context of chronic disease related to inadequate oral intake Signs/Symptoms as evidenced by ~7-8% unintentional weight loss x 3- 4 months and PO meeting less than 50% estimated nutrition needs x 3 months Status Active Problem Recommendation Dietitian Recommendations/Changes Will change diet to cardiac. Will add 240mL chocolate ensure plus HP w/ breakfast and dinner meals. Adjust ONS as needed to optimize PO and stabilize weight. Weight / BMI Weight Weight: 196 lb 10.437 oz Body Mass Index (BMI) 29.0 ABG / Lab / Microbiology Data 11/01/23 07:13 11/01/23 07:13 D/C Instructions Discharge Diet: No restrictions Weight Bearing Status: Weight bearing as tolerated Call your doctor if you observe: Fever of 101 or Higher, Coldness, Increased Pain, Numbness or Tingling, Change in Color, Inability to urinate, Inability to have a bowel movement, Shortness of breath, Dizziness, Fainting spells, Swelling in the ankles, Chest pain, Prolonged hiccupping, Increased palpitations (irregular heartbeat) and Calf discomfort When: IN 2 WEEKS Meaningful Use Info Meaningful Use Meaningful Use Diagnoses (Choose all that apply): None applicable Ischemic Stroke Statin Dosing Therapy Reference: STATIN DOSE THERAPY REFERENCE: * Patients > 75 years receive moderate or high dose statin therapy. * Patients 75 years or YOUNGER should receive HIGH intensity statin dose unless contraindicated. You will be required to document reason for non-treatment if statin daily dose does not meet guidelines. HIGH DOSE STATIN THERAPY DAILY Atorvastatin > than or = to 40 mg Rosuvastatin > than or = to 20 mg Amlodipine + Atorvastatin > than or = to 2.5/40 mg Ezetimibe + Simvastatin 10/80 mg Simvastatin 80mg Discharge Plan Admission Admit Date/Time: 10/30/23 16:24 Primary Reason for Your Visit: Symptomatic orthostatic hypotension. Attending Provider: Delfin Russell Primary Care Provider: Cisco Dozier Consulting Providers: Nikolai Freeman; Frida Newell Instructions Additional Instructions / Restrictions: Advised thigh-high OUMAR hose bilaterally. Slow change in posture. Fall precaution Discharge Orders/Prescriptions Prescriptions: Continued tamsulosin 0.4 mg capsule 0.4 mg PO DAILY carbidopa-levodopa 25-100 mg tablet 2 tab PO TID Qty: 540 3RF atropine 1 % drops See Rx Instructions buccal DAILY Qty: 10 3RF Rx Instructions: Take 1 to 2 drops buccally daily budesonide 1 mg/2 mL suspension for nebulization 1 mg inhalation BID Qty: 120 11RF clopidogrel 75 mg tablet 75 mg PO DAILY Qty: 90 3RF ezetimibe 10 mg tablet 10 mg PO DAILY Qty: 90 3RF rosuvastatin 5 mg tablet 5 mg PO DAILY Qty: 90 3RF levothyroxine [Synthroid] 150 mcg tablet 150 mcg PO DAILY aspirin [Luis Alberto Chewable Aspirin] 81 mg tablet,chewable 81 mg PO DAILY Patient Comments: 1 tablet by mouth once a day metoprolol succinate 25 mg tablet extended release 24 hr 12.5 mg PO 1800 nitrofurantoin monohyd/m-cryst 100 mg capsule 100 mg PO MOWEFR (DME) Handicap placard See Rx Instructions .Route .MEDSUPPLY Qty: 1 0RF Rx Instructions: Expiration: 10/01/2025 potassium chloride 20 mEq tablet extended release 20 meq PO DAILY Qty: 90 3RF ipratropium-albuterol 0.5 mg-3 mg(2.5 mg base)/3 mL solution for nebulization 3 ml inhalation Q4H PRN PRN (Reason: SOB &/OR WHEEZING) Qty: 360 11RF Changed furosemide [Lasix] 40 mg tablet 20 mg PO 1200 PRN (Reason: Leg swelling) 30 Days Qty: 0 0RF Rx Instructions: Hold for SBP less than 100 mmHg Discontinued ciprofloxacin HCl 500 mg tablet 500 mg PO BID dexamethasone 4 mg tablet 6 mg PO DAILY metronidazole 500 mg tablet 500 mg PO BID Referrals / Follow Up: Cisco Dozier, [Primary Care Provider] - Within 2 Weeks Christian Hernandez MD [Non-Staff -Ordering Privileges] - Within 3 Months Javier Sumner MD [Med Staff - Courtesy Staff] - Within 1 Month (For hypothalamic-pituitary adrenal axis testing for serum cortisol level 5.0. Symptomatic orthostatic hypotension, Shy-Drager syndrome.) Disposition Disposition (needs filled in before D/C Order can be placed): Home Health Service Charges/Coding Visit Charges Inpatient E&M: 87209 Disch Hosp >30min
[2023-11-02 10:41] VITALS: BP 114/78; PULSE 78; RESP 18; TEMP 36.6; O2SAT 95
[2023-11-02 12:28] VITALS: PULSE 76; RESP 18
--- NOTE | 2023-11-02 13:33 | CASEMGMT ---
Message sent to [facility] via [employer] to make aware pt will dc today and that dc info was faxed over as charge nurse could not reach them by phone.
--- NOTE | 2023-11-02 14:14 | NURSING ---
per social work okay to DC
== END 2023-11-02 13:37 | disposition home health service (06) | DRG 314 ==
LOC: ED 19:55 → PCU 21:05
PROVIDERS: Internal Medicine; Admitting Provider Internal Medicine; Emergency Provider Emergency Medicine; PCP Family Medicine; Visit Provider Internal Medicine
DX: I95.9 Hypotension, unspecified (principal); E43 Unspecified severe protein-calorie malnutrition; N13.8 Other obstructive and reflux uropathy; I50.32 Chronic diastolic (congestive) heart failure; R13.19 Other dysphagia; I11.0 Hypertensive heart disease with heart failure; G20.A1 Parkinson's disease without dyskinesia, without mention of fluctuations; E86.0 Dehydration; J44.89 Other specified chronic obstructive pulmonary disease; E89.0 Postprocedural hypothyroidism; E78.00 Pure hypercholesterolemia, unspecified; G47.33 Obstructive sleep apnea (adult) (pediatric); I25.10 Atherosclerotic heart disease of native coronary artery without angina pectoris; K21.9 Gastro-esophageal reflux disease without esophagitis; Z87.891 Personal history of nicotine dependence; Z68.27 Body mass index [BMI] 27.0-27.9, adult; Z86.718 Personal history of other venous thrombosis and embolism; Z95.5 Presence of coronary angioplasty implant and graft; N40.1 Benign prostatic hyperplasia with lower urinary tract symptoms; R33.8 Other retention of urine; R39.198 Other difficulties with micturition; Z87.440 Personal history of urinary (tract) infections; R31.0 Gross hematuria; Z79.899 Other long term (current) drug therapy; Z79.02 Long term (current) use of antithrombotics/antiplatelets
CPT/HCPCS: 31720; 36415; 71046; 76770; 80048; 80053; 81001; 82533; 83605; 83735; 84100; 84443; 85025; 85027; 87070; 87086; 87205; 94640; 97161; 97166; 97530; 97802; 99282; 99283; J7030; J7120; A4216

== ENCOUNTER 2024-03-08 15:25 | Emergency (ER) | payer MEDICARE, BC, SELFPAY ==
[2024-03-08 15:26] VITALS: BP 114/62; PULSE 90; RESP 24; TEMP 36.7; O2SAT 94; BMI 28.2
[2024-03-08 15:38] VITALS: O2SAT 85
[2024-03-08 15:40] VITALS: O2SAT 92
--- NOTE | 2024-03-08 15:53 | ED.VIS.DYS ---
HPI History of Present Illness Chief Complaint: Shortness of Breath Informant: patient and spouse/S.O. Narrative Narrative: Patient went tracheostomy and history of asthma/COPD overlap syndrome on no home oxygen presenting with cough, tracheostomy secretions without hemoptysis, and some shortness of breath that improves a little with home breathing treatments that started yesterday. Exposed to their son less than 1 week ago who has had influenza A, and after that were also at a with close contact with a lot of people. Denies any chest pain, edema, headache, fevers or chills, or other systemic symptoms. [facility] Medical History Transient hypotension Acute dyspnea Acute exacerbation of chronic obstructive pulmonary disease Fall Debility BPH (benign prostatic hyperplasia) GERD (gastroesophageal reflux disease) Dysphagia Vocal cord dysfunction (HFpEF) heart failure with preserved ejection fraction Carotid artery disease Dizziness Hypokalemia Hypoxia Asthma-COPD overlap syndrome Hyperlipidemia COPD (chronic obstructive pulmonary disease) Carotid artery stenosis Osteoarthritis of right hip Angioedema Diastolic dysfunction Throat clearing Moist mucous membranes of ear, nose, and throat Cough Oral thrush Carotid artery, internal, occlusion MARYJO (obstructive sleep apnea) Smoking greater than 30 pack years Chronic diastolic (congestive) heart failure Orthostatic hypotension Fatigue Hypersomnia Parkinson's disease Mild cognitive impairment Benign localized hyperplasia of prostate with urinary obstruction and lower urinary tract symptoms Weak urinary stream Urinary frequency Urge incontinence of urine Tobacco abuse counseling Tobacco abuse Shortness of breath on exertion Snoring Postoperative hypothyroidism Observed sleep apnea Nocturia Laryngeal spasm Hypertension Hypercholesterolemia Hoarseness of voice Elevated brain natriuretic peptide (BNP) level Elevated troponin level Fungal infection Change in voice CAD (coronary artery disease) Breathing difficult Bradycardia ACS (acute coronary syndrome) Asthma History of nuclear stress test Acute deep vein thrombosis of lower extremity Abnormal CT of the chest Dyspnea Wears glasses Alcohol use Arthritis DVT (deep venous thrombosis) Gastric reflux Smoker Cricopharyngeal dysphagia Parasomnia Bilateral hearing loss Spasm of vocal cords High cholesterol Hypothyroidism Home Medications ?Medication ?Instructions ?Recorded ?Last Taken ?Type levothyroxine 150 mcg tablet 150 mcg PO DAILY thyroid 01/13/21 09/07/23 History (Synthroid) aspirin 81 mg chewable tablet 81 mg PO DAILY heart health 01/24/22 09/07/23 History (Luis Alberto Chewable Low Dose Aspirin) tamsulosin 0.4 mg capsule 0.4 mg PO DAILY prostate 05/17/22 09/07/23 History Handicap placard #1 ea 10/01/22 Unknown Rx potassium chloride 20 mEq 20 meq PO DAILY supplement #90 tabs 07/10/23 Unknown Rx tablet,extended release ipratropium 0.5 mg-albuterol 3 mg 3 ml inhalation Q4H PRN PRN SOB 09/18/23 Unknown Rx (2.5 mg base)/3 mL nebulization &/OR WHEEZING #360 mL soln atropine 1 % eye drops See Rx Instructions buccal DAILY 10/01/23 Unknown Rx secretions #10 mL carbidopa 25 mg-levodopa 100 mg 2 tab PO TID parkinsons #540 tabs 10/01/23 Unknown Rx tablet clopidogrel 75 mg tablet 75 mg PO DAILY anit platelet #90 10/10/23 Unknown Rx tabs ezetimibe 10 mg tablet 10 mg PO DAILY cholesterol #90 tabs 10/10/23 Unknown Rx rosuvastatin 5 mg tablet 5 mg PO DAILY cholesterol #90 tabs 10/10/23 Unknown Rx budesonide 1 mg/2 mL suspension 1 mg (2 mL) inhalation BID 10/17/23 Unknown Rx for nebulization breathing #120 mL nitrofurantoin 100 mg PO MOWEFR bladder 10/21/23 Unknown History monohydrate/macrocrystals 100 mg capsule metoprolol succinate 25 mg 12.5 mg PO 1800 bp 10/29/23 Unknown History tablet,extended release 24 hr furosemide 40 mg tablet (Lasix) 20 mg (1/2 x 40 mg) PO 1200 PRN 11/02/23 Unknown Rx Leg swelling 30 days #0 tabs fludrocortisone 0.1 mg tablet 0.2 mg (2 x 0.1 mg) PO QAM #60 tabs 12/10/23 Unknown Rx oseltamivir 75 mg capsule (Tamiflu) 75 mg PO BID 5 days #10 caps 03/08/24 Unknown Rx prednisone 20 mg tablet 40 mg (2 x 20 mg) PO DAILY 5 days 03/08/24 Unknown Rx #10 tabs Allergy/AdvReac Type Severity Reaction Status Date / Time vibegron (From [place]) Allergy Severe Rash Verified 03/08/24 15:26 Family History Father COPD (chronic obstructive pulmonary disease) Emphysema lung Myocardial infarction Mother Parkinsons disease Malignant melanoma Surgical History Status post tracheostomy 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 artery (~06/06/21) H/O cardiac catheterization (~06/06/21) Hx of arthroscopy of knee H/O knee surgery H/O thyroidectomy Social History household members: spouse Smoking Status: Former smoker Tobacco: How many years used: 45 second hand exposure: Yes alcohol intake: former substance use type: does not use caffeine: Yes (daily) Type: coffee Number of servings: 2 what type of physical activity do you participate in: walking seatbelt use: sometimes ROS ROS ED Constitutional Constitutional ED: Denies chills or fever(s) Eyes Eyes: Denies change in vision or diplopia ENT ENT ED: Denies rhinorrhea or sore throat Cardiovascular Cardiovascular: Denies chest pain, orthopnea or palpitations Respiratory/Chest Respiratory/Chest: Reports cough, dyspnea and sputum; Denies orthopnea Gastrointestinal Gastrointestinal: Denies abdominal pain, diarrhea, nausea or vomiting Genitourinary Genitourinary ED: Denies dysuria or hematuria Musculoskeletal Musculoskeletal: Denies back pain or neck pain Integumentary Denies abscess or rash Neurologic Neurologic: Denies headache(s), paresthesias or weakness EXAM Physical Exam Const Vital Signs: 03/08/24 15:26 03/08/24 15:38 03/08/24 15:40 Temperature 98.1 F Temperature Source Temporal Pulse Rate 90 Respiratory Rate 24 H Respiratory Effort Blood Pressure 114/62 Blood Pressure Mean 79 Pulse Ox 94 85 92 Oxygen Delivery Method Room Air Room Air Nasal Cannula Oxygen Flow Rate (L/min) 3 03/08/24 15:47 03/08/24 16:08 03/08/24 16:08 Temperature Temperature Source Pulse Rate 100 Respiratory Rate 16 Respiratory Effort Short of Breath Blood Pressure Blood Pressure Mean Pulse Ox 93 Oxygen Delivery Method Nasal Cannula Room Air Oxygen Flow Rate (L/min) 3 03/08/24 16:08 Temperature Temperature Source Pulse Rate Respiratory Rate 16 Respiratory Effort Normal Blood Pressure Blood Pressure Mean Pulse Ox 92 Oxygen Delivery Method Room Air Oxygen Flow Rate (L/min) Positive well nourished and well developed General Appearance ED: well developed and NAD HEENT Reports moist mucous membranes normocephalic and atraumatic Eyes PERRL and EOMs intact bilaterally Neck full ROM, no lymphadenopathy, supple, no meningeal signs and no JVD Neck Narrative: Trach site benign, no blood or signs of infection Resp normal respiratory effort Resp Narrative: Diffusely diminished, and equal bilaterally. Occasional expiratory like that we use. No rales or rhonchi. Effort and Inspection: able to speak in complete sentences Cardio regular rate, regular rhythm and no murmurs GI non-tender and non-distended Auscultation: normoactive bowel sounds Palpation: soft Back/Spine no CVA tenderness General Back: other FROM Extremity normal to inspection General Extremety ED: Negative for edema, pulses abnormal or tenderness General Extremity: Negative for edema or pulses abnormal Neuro oriented x3, CN's II-XII intact bilaterally and no sensory deficits noted Sensorium / Orientation: awake and alert Motor Exam: strength 5/5 throughout Psych mental status grossly normal Skin no rashes or lesions noted and no wounds MDM MDM MDM Narrative Medical decision making narrative: COVID/influenza/RSV swab returns positive for influenza A, as discussed with the patient. We discussed Tamiflu he wanted so we started him on that. His two-view chest x-ray my interpretation shows no acute pneumonia, radiology in agreement. He is doing much better after a stack of breathing treatments, a DuoNeb followed by an albuterol. He did not require more emergently. His oxygen saturations are 92% on room air, he and state he usually is at 93%. He ambulated in ED transiently decreased to 85% but quickly recovered. He states he felt okay when he walked. I offered admission he declines and wants to go home. Therefore were going to prescribe Tamiflu and steroids and advised close outpatient follow-up. We discussed trach care, changing her cannula more than once a day as needed for sputum production, and taking the prescribed medications as needed, we discussed reasons to return. Radiography Diagnostic Testing: Clinical Impression(s) from Imaging Studies Chest X-Ray 03/08/24 15:55 IMPRESSION: Mild left basilar atelectasis. Electronically Signed: Tomas Ace DO at 16:10 EST Reading Location ID and State: [facility] / [place] Tel [phone], Service support , Discharge Plan Triage Chief Complaint: Shortness of Breath ED Provider: Ramos Randall Dx/Rx/DC Orders Clinical Impression: Acute exacerbation of chronic obstructive pulmonary disease (COPD), Influenza A Instructions: ED COPD Flare, ED Influenza (Adult) Prescriptions: New oseltamivir [Tamiflu] 75 mg capsule 75 mg PO BID 5 Days Qty: 10 0RF prednisone 20 mg tablet 40 mg PO DAILY 5 Days Qty: 10 0RF No Action tamsulosin 0.4 mg capsule 0.4 mg PO DAILY carbidopa-levodopa 25-100 mg tablet 2 tab PO TID Qty: 540 3RF atropine 1 % drops See Rx Instructions buccal DAILY Qty: 10 3RF Rx Instructions: Take 1 to 2 drops buccally daily budesonide 1 mg/2 mL suspension for nebulization 1 mg inhalation BID Qty: 120 11RF clopidogrel 75 mg tablet 75 mg PO DAILY Qty: 90 3RF ezetimibe 10 mg tablet 10 mg PO DAILY Qty: 90 3RF rosuvastatin 5 mg tablet 5 mg PO DAILY Qty: 90 3RF fludrocortisone 0.1 mg tablet 0.2 mg PO QAM Qty: 60 5RF levothyroxine [Synthroid] 150 mcg tablet 150 mcg PO DAILY aspirin [Luis Alberto Chewable Aspirin] 81 mg tablet,chewable 81 mg PO DAILY Patient Comments: 1 tablet by mouth once a day metoprolol succinate 25 mg tablet extended release 24 hr 12.5 mg PO 1800 furosemide [Lasix] 40 mg tablet 20 mg PO 1200 PRN (Reason: Leg swelling) 30 Days Qty: 0 0RF Rx Instructions: Hold for SBP less than 100 mmHg nitrofurantoin monohyd/m-cryst 100 mg capsule 100 mg PO MOWEFR (DME) Handicap placard See Rx Instructions .Route .MEDSUPPLY Qty: 1 0RF Rx Instructions: Expiration: 10/01/2025 potassium chloride 20 mEq tablet extended release 20 meq PO DAILY Qty: 90 3RF ipratropium-albuterol 0.5 mg-3 mg(2.5 mg base)/3 mL solution for nebulization 3 ml inhalation Q4H PRN PRN (Reason: SOB &/OR WHEEZING) Qty: 360 11RF Primary Care Provider: Cisco Dozier Referrals: Cisco Dozier, [Primary Care Provider] - 1 Week if not improving () Activity Restrictions/Additional Instructions: If you are not getting better with the medications and you are having worsening breathing despite that and treatments, may check oxygen levels to ensure you are at 89 or above, and/or return to the ER for reevaluation. Print Language: Chinese Disposition Disposition: Home, Self Care
--- NOTE | 2024-03-08 15:55 | RAD_ITS ---
INDICATION: cough sob EXAMINATION/TECHNIQUE: X-RAY - XR Chest 2 Views COMPARISON: FINDINGS: LINES/DEVICES: Tracheostomy tube in place. LUNGS: No consolidation, edema or effusion. Mild left basilar atelectasis. No pneumothorax. MEDIASTINUM AND CARDIOVASCULAR STRUCTURES: Cardiac silhouette not enlarged. Central airways and mediastinal contour are unremarkable. BONES AND SOFT TISSUES: Unremarkable. RAD/Chest PA and Lateral IMPRESSION: Mild left basilar atelectasis. Electronically Signed: Tomas Ace DO at 16:10 EST ,
[2024-03-08 16:08] VITALS: PULSE 100; RESP 16; O2SAT 92; O2SAT 93
[2024-03-08] MEDS: Albuterol 2.5 MG/3 ML VIAL.NEB. INHALATION (16:08)
[2024-03-08] MEDS: Ipratropium/Albuterol Sulfate 3 ML AMPUL.NEB INHALATION (16:08)
[2024-03-08 17:38] VITALS: BP 138/95; PULSE 75; O2SAT 93
[2024-03-08] MEDS: predniSONE 20 MG Tablet 40 MG PO (17:42)
[2024-03-08] MEDS: Oseltamivir Phosphate 75 MG Capsule PO (17:42)
--- NOTE | 2024-03-08 17:47 | ED.RN ---
voiced frustrations with being discharged. This Rn reiterated that pt was offered admission but declined. Pt. states 'ill be fine. pt was reminded to call for EMS if pt. felt worse and needed to come back.
[2024-03-08 17:48] VITALS: BP 138/95; PULSE 89; RESP 24; TEMP 36.4; O2SAT 93
--- NOTE | 2024-03-11 08:41 | ED.RN ---
CALLED IN A NEW PRESCRIPTION R/T SPUTUM CULTURE TO [facility]
--- NOTE | 2024-03-11 08:43 | ED.RN ---
CALLED AND LEFT A VM REGARDING NEW SCRIPT CALLED IN TO [facility]
== END 2024-03-08 17:49 | disposition home or self-care (01) ==
PROVIDERS: Emergency Provider Emergency Medicine; PCP Family Medicine; Visit Provider Emergency Medicine
DX: J10.08 Influenza due to other identified influenza virus with other specified pneumonia (principal); Z93.0 Tracheostomy status; G20.A1 Parkinson's disease without dyskinesia, without mention of fluctuations; J15.8 Pneumonia due to other specified bacteria; I11.0 Hypertensive heart disease with heart failure; I50.32 Chronic diastolic (congestive) heart failure; J44.1 Chronic obstructive pulmonary disease with (acute) exacerbation; J44.0 Chronic obstructive pulmonary disease with (acute) lower respiratory infection; J15.4 Pneumonia due to other streptococci; N40.1 Benign prostatic hyperplasia with lower urinary tract symptoms; R35.0 Frequency of micturition; R39.12 Poor urinary stream; K21.9 Gastro-esophageal reflux disease without esophagitis; I25.10 Atherosclerotic heart disease of native coronary artery without angina pectoris; E03.9 Hypothyroidism, unspecified; E78.00 Pure hypercholesterolemia, unspecified; M16.11 Unilateral primary osteoarthritis, right hip; G47.33 Obstructive sleep apnea (adult) (pediatric); Z95.5 Presence of coronary angioplasty implant and graft; Z86.718 Personal history of other venous thrombosis and embolism; Z79.82 Long term (current) use of aspirin; Z79.02 Long term (current) use of antithrombotics/antiplatelets; Z79.890 Hormone replacement therapy; Z79.899 Other long term (current) drug therapy; Z87.891 Personal history of nicotine dependence
CPT/HCPCS: 31720; 71046; 87070; 87077; 87186; 87205; 87631; 94640; 99252; 99284; G0463

== ENCOUNTER → 2024-03-24 | Outpatient (CLI) | payer MEDICARE, BC, SELFPAY ==
[2024-03-24 13:59] LABS: Color, Urine Yellow (Yellow); Glucose, Dipstick Normal (Normal); Ketone-Dipstick Negative (Negative); Leukocyte Esterase-Dipstick Negative /ul (Negative); Nitrite-Dipstick Negative (Negative); Occult Blood-Urine Negative /ul (Negative); Protein-Dipstick Negative (Negative); Specific Gravity, Urine 1.025 (1.002-1.030); Urine Bilirubin Dipstick Negative (Negative); Urine Clarity Clear (Clear); Urine Urobilinogen Normal (Normal)
== END | disposition home or self-care (01) ==
LOC: LAB 13:31
PROVIDERS: PCP Family Medicine; Referring Provider Urology; Visit Provider Urology
DX: R30.0 Dysuria (principal)
CPT/HCPCS: 81002

== ENCOUNTER → 2024-04-13 | Outpatient (CLI) | payer MEDICARE, BC, SELFPAY ==
[2024-04-14 06:40] LABS: ALB/GLOB Ratio 1.1 RATIO (0.9-2.4); AST(SGOT) 18 U/L (15-37); Alanine Aminotransfer ALT/SGPT 27 U/L (16-61); Albumin, Serum 3.9 g/dL (3.2-5.0); Alkaline Phosphatase 81 U/L (45-117); Anion Gap 5 (5-15); BUN 18 mg/dL (7-18); BUN/Creat Ratio 18.9 RATIO (10-20); Calcium,Total 9.3 mg/dL (8.5-10.1); Chloride 106 mmol/L (98-107); Cholesterol 137 mg/dL (200); Creatinine, Serum 0.95 mg/dL (0.70-1.30); EST Glomerular Filtration Rate 84 mL/min (>60); Est Glom Filt Rate - Afr Amer 102 mL/min (>60); Globulin 3.5 g/dL (2.2-4.2); Glucose 95 mg/dL (74-106); High Density Lipoprotein 64 mg/dL; Potassium 4.2 mmol/L (3.5-5.1); Protein, Total 7.4 g/dL (6.4-8.2); Sodium Level 141 mmol/L (136-145); Triglycerides 85 mg/dL; Very Low Density Lipoprotein 17 mg/dL (5-40)
== END | disposition home or self-care (01) ==
LOC: LAB 08:59
PROVIDERS: PCP Family Medicine; Referring Provider Internal Medicine Cardiovascular Disease; Visit Provider Internal Medicine Cardiovascular Disease
DX: R42 Dizziness and giddiness (principal); I50.30 Unspecified diastolic (congestive) heart failure; W19.XXXA Unspecified fall, initial encounter; E78.00 Pure hypercholesterolemia, unspecified
CPT/HCPCS: 36415; 80053; 80061

== ENCOUNTER → 2024-06-22 | Outpatient (CLI) | payer MEDICARE, BC, SELFPAY ==
--- NOTE | 2024-06-22 12:59 | CDU_ITS ---
Reason For Study Reason For Study: Right ICA stenosis Rt. Velocities/BP Lt. Velocities/BP Prox CCA 62.6/9.7 cm/sec. Prox CCA 63.1/15.1 cm/sec. Mid CCA 57.5/12.4 cm/sec. Mid CCA 52.2/10.2 cm/sec. Dist CCA 61.9/14.6 cm/sec. Dist CCA 56.4/16.6 cm/sec. Prox ICA 22.3/6.6 cm/sec. Prox ICA 43.9/14.2 cm/sec. Mid ICA 44.8/12.5 cm/sec. Mid ICA 46.5/16.8 cm/sec. Dist ICA 40.4/10.7 cm/sec. Dist ICA 63.1/28.2 cm/sec. Rt. ICA/CCA = 0.78. Lt. ICA/CCA = 1.21. Prox ECA 88.8/20 cm/sec. Prox ECA 63.1/17.7 cm/sec. Rt. Vert. 37.2/17.3 cm/sec. Lt. Vert. 25.6/9.9 cm/sec. Right Extracranial There is intimal thickening but no significant atherosclerotic plaque noted in the right common carotid artery. There is heterogeneous, irregular atherosclerotic plaque noted in the right internal carotid artery. ICA is very minimal in size. There is intimal thickening but no significant atherosclerotic plaque noted in the right external carotid artery. Antegrade flow is noted in the right vertebral artery. Left Extracranial There is intimal thickening but no significant atherosclerotic plaque noted in the left common carotid artery. There is intimal thickening but no significant atherosclerotic plaque noted in the left internal carotid artery. There is intimal thickening but no significant atherosclerotic plaque noted in the left external carotid artery. Antegrade flow is noted in the left vertebral artery. Procedure Carotid Duplex 71973. This is a Carotid Duplex examination using B-mode, color flow and specral Doppler. Technically difficult due to trachiotomy neck band. Patient states that they do not take it off. Exam performed in department. VL/Carotid Duplex Ultrasound Interpretation Summary Mild (<50%) stenosis right extracranial internal carotid. Small caliber vessel, alternative imaging may be beneficial. Normal left extracranial internal carotid. Patent and antegrade vertebrals bilaterally. Ordering Physician: Christian Hernandez Referring Physician: Cisco Dozier Performed By: Jessica Yuan RVT
== END | disposition home or self-care (01) ==
LOC: CVS 12:59
PROVIDERS: PCP Family Medicine; Referring Provider Psychiatry & Neurology Neurology; Visit Provider Psychiatry & Neurology Neurology
DX: I65.21 Occlusion and stenosis of right carotid artery (principal)
CPT/HCPCS: 93880

== ENCOUNTER → 2024-06-29 | Outpatient (CLI) | payer MEDICARE, BC, SELFPAY | END | disposition home or self-care (01) | LOC: PSN 10:41 | PROVIDERS: PCP Family Medicine; Referring Provider Nurse Practitioner Family; Visit Provider Nurse Practitioner Family | DX: J44.89 Other specified chronic obstructive pulmonary disease (principal) | CPT/HCPCS: 94060; 94726; 94729 ==

== ENCOUNTER → 2024-07-02 | Outpatient (CLI) | payer MEDICARE, BC, SELFPAY ==
[2024-07-02 12:51] VITALS: PULSE 100; PULSE 111; PULSE 114; PULSE 115; PULSE 85; PULSE 89; PULSE 99; O2SAT 90; O2SAT 91; O2SAT 93
--- NOTE | 2024-07-03 11:12 | PCM.PSN.6M ---
PSN 6 Minute Walk Test 6 Minute Walk Test 6 Minute Walk Test: 6 Minute Walk Test PSN:6-Minute Walk Test Start: 07/02/24 12:50 Freq: Status: Active Protocol: [id number] Document 07/02/24 12:51 GUALBERTOKETAN (Rec: 07/02/24 12:54 MARY BETHGONZALOKETAN [id number]) 6 Minute Walk Test Date Performed 07/02/24 Time Performed 12:30 Height 5 ft 9 in Weight: 200 lb Weight in Pounds 200.[address]: Tita Wick Assistive device None used: Pre-test Oxygen Delivery Room Air Method Pulse Ox (%) 91 Pulse Rate (60-100 85 beats/min) Dyspnea Gianna Scale ( 0 0-10) Exertion Gianna Scale 6 (6-20) 1st minute Oxygen Delivery Room Air Method Pulse Ox (%) 91 Pulse Rate (60-100 100 beats/min) 2nd minute Oxygen Delivery Room Air Method Pulse Ox (%) 90 Pulse Rate (60-100 99 beats/min) 3rd minute Oxygen Delivery Room Air Method Pulse Ox (%) 90 Pulse Rate (60-100 99 beats/min) 4th minute Oxygen Delivery Room Air Method Pulse Ox (%) 90 Pulse Rate (60-100 111 H beats/min) 5th minute Oxygen Delivery Room Air Method Pulse Ox (%) 91 Pulse Rate (60-100 114 H beats/min) 6th minute Oxygen Delivery Room Air Method Pulse Ox (%) 91 Pulse Rate (60-100 115 H beats/min) Dyspnea Gianna Scale ( 2 0-10) Exertion Gianna Scale 12 (6-20) Post-test Oxygen Delivery Room Air Method Pulse Ox (%) 93 Pulse Rate (60-100 89 beats/min) Full Laps Walked 12 Partial Lap, Number 47 of Tiles Walked Total Distance 755 Walked (ft) Interpretation Interpretation: The patient ambulated 755 feet over the course of 6 minutes beginning on room air without assistive devices. Pretesting oxygen saturation was noted to be 91% on room air. With ambulation, the jad oxygen saturation was 90%. Although there was evidence of impaired walk distance, there was no significant exertional oxygen desaturation. Recommendations Recommendations: There is no indication for the use of supplemental oxygen at this time.
== END | disposition home or self-care (01) ==
LOC: PSN 12:32
PROVIDERS: PCP Family Medicine; Referring Provider Nurse Practitioner Family; Visit Provider Nurse Practitioner Family
DX: J44.89 Other specified chronic obstructive pulmonary disease (principal)
CPT/HCPCS: 94618

== ENCOUNTER → 2024-07-10 | Outpatient (CLI) | payer MEDICARE, BC, SELFPAY ==
--- NOTE | 2024-07-10 11:37 | SP.MBSS_ITS ---
Modified Barium Swallow Patient Information Study Date: 07/10/24 Study Time: 13:00 Direct Billable Minutes: 75 Total Minutes procedure & reportin Diagnosis: R13.10 - Dysphagia; G20.A1 - Parkinson's disease w/o dyskinesia Referring Physician: Christian Hernandez Reason for Referral: Objectively assess swallow function, assess risk for aspiration, and determine recommendations for least restrictive diet textures and compensatory strategies to improve swallow safety. Medical History: Abnormal CT of the chest, ACS (acute coronary syndrome), Acute deep vein thrombosis of lower extremity, Acute dyspnea, Acute exacerbation of chronic obstructive pulmonary disease, Alcohol use, Angioedema, Arthritis, Asthma, Asthma-COPD overlap syndrome, Benign localized hyperplasia of prostate with urinary obstruction and lower urinary tract symptoms, BPH (benign prostatic hyperplasia), Bilateral hearing loss, Bradycardia, Breathing difficult, CAD (coronary artery disease), Carotid artery disease, Carotid artery stenosis, Carotid artery, internal, occlusion, Change in voice, Chronic diastolic (congestive) heart failure, COPD (chronic obstructive pulmonary disease), Cough, Cricopharyngeal dysphagia, Debility, Diastolic dysfunction, Dizziness, DVT (deep venous thrombosis), Dysphagia, Dyspnea, Elevated brain natriuretic peptide (BNP) level, Elevated troponin level, Fall, Fatigue, Fungal infection, Gastric reflux, GERD (gastroesophageal reflux disease), High cholesterol, Hoarseness of voice, Hypercholesterolemia, Hyperlipidemia, Hypersomnia, Hypertension, Hypokalemia, Hypothyroidism, Hypoxia, Laryngeal spasm, Mild cognitive impairment, Moist mucous membranes of ear, nose, and throat, Multiple System Atrophy (MSA), No cturia, Observed sleep apnea, Oral thrush, Orthostatic hypotension, Osteoarthritis of right hip, MARYJO (obstructive sleep apnea), Parasomnia, Parkinson's disease, (HFpEF) heart failure with preserved ejection fraction, Postoperative hypothyroidism, Shortness of breath on exertion, Smoker, Smoking greater than 30 pack years, Snoring, Spasm of vocal cords, Throat clearing, Tobacco abuse, Tobacco abuse counseling, Transient hypotension, Urge incontinence of urine, Urinary frequency, Vocal cord dysfunction, Weak urinary stream, Wears glasses. Current Diet Ordered: regular/thin Dentition: Natural Teeth Mental Status: WNL Comment: Prior MBSS: MBSS 08/30/20 revealed mild oropharyngeal dysphagia with recommendations for Regular textures / Thin liquids with strategies to decrease risk for aspiration: Thorough mastication, Small Bites, Small Sips, No Straws, Slow Rate, Sitting upright, Remain sitting upright for 30 minutes after PO intake. He was recommended for GI consult due to mild retrograde flow of bolus and mild esophageal retention, as well as address concern for cricopharyngeal bar noted in impressions., ENT Consult. ? He followed with GI and had EGD 11/23/20, which revealed non-severe esophagitis. ? MBSS 08/14/23 revealed mild pharyngeal dysphagia R13.13 w/ recommendations for Regular Textures and Thin Liquids w/ the following compensatory strategies recomemnded: Small Bites, Small Sips, Slow Rate, Sitting upright and Remain sitting upright for 30 minutes after PO intake Respiratory Status: Oxygenating on Room Air (via trach w/ speaking valve in place) Penetration-Aspiration Scale Penetration-Aspiration Scale: OBJECTIVE ASSESSMENT OF SWALLOW FUNCTION (QUANTITATIVE ? PER TRIAL): PENETRATION / ASPIRATION SCALE (GROSS): 1 = does not enter airway 2 = enters airway/above vocal folds/ejected 3 = enters airway/above vocal folds/not ejected 4 = enters airway/contacts vocal folds/ejected 5 = enters airway/contacts vocal folds/not ejected 6 = enters airway/below vocal folds/ejected 7 = enters airway/below vocal folds/not ejected despite effort 8 = enters airway/below vocal folds/no effort Penetration-Aspiration Scale Score Thin Liquid via teaspoon: Result: 1= does not enter airway Thin Liquid via teaspoon Trial 2: Result: 1= does not enter airway Thin Liquid via small single sip: cup: Result: 1= does not enter airway Thin Liquid via sequential sips: cup: Result: 1= does not enter airway Thin Liquid via single sip: straw: Result: 1= does not enter airway Pudding: Result: 1= does not enter airway Cookie: Result: 1= does not enter airway Oral Phase Labial Seal: Interlabial escape, no progression to anterior lip Tongue Control During Bolus Hold: Cohesive bolus between tongue to palatal seal Bolus Preparation/Mastication: Slow prolonged chewing/mashing with complete recollection Bolus Transport/Lingual Motion: Repetitive/disorganized tongue motion Oral Residue: Trace residue lining oral structures Pharyngeal Phase Initiation of Pharyngeal Swallow: Bolus head at posterior laryngeal surgace of epiglottis Soft Palate Elevation: No bolus between soft palate and pharyngeal wall Laryngeal Elevation: Comp. Superior move thyroid cart w/comp. apprx arytenoid cart-epig pet Anterior Hyoid Excursion: Partial anterior movement Epiglottic Movement: Complete inversion Laryngeal Vestibule Closure at Height of Swallow: Complete; no air/contrast in laryngeal vestibule Pharyngeal Stripping Wave: Present - complete Pharyngoesophageal Segment Opening: Parital distension and partial duration; parital obstruction of flow Tongue Base Retraction: Narrow column of contrast between tongue base & post. pharyngeal wall Pharyngeal Residue: Trace residue within or on pharyngeal structures Esophageal Phase Esophageal Clearance: Esophageal retention w/ retrograde flow through pharyngoesophageal seg Diagnosis/Impression Diagnosis: mild oropharyngeal dysphagia R13.12 Impression: The oral phase is characterized by... * slowed mastication of solids * repetitive rocking lingual motion appreciated w/ AP transportation The pharyngeal phase is characterized by... * minimal anterior hyoid movement appreciated, although this did not impact laryngeal vestibule closure/airway protection The esophageal phase is characterized by... * patulous appearing esophagus * prominent cricopharyngeal hypertrophy * esophageal retention appreciated w/ transient retrograde flow through the PES and into the pyriforms (noted w/ sequential swallows of liquid only) Recommendations Diet: Regular Textures and Thin Liquids Compensatory Strategies: Small Bites, Small Sips, Alternate bites/solids and sips/liquids and Remain sitting upright for 30 minutes after PO intake Recommend Repeat Modified Barium Swallow: Yes (repeat at reasonable intervals to assess function d/t progressive nature of Multiple System Atrophy (MSA)) Comment: repeated MBSS at reasonable intervals d/t progressive nature of Multiple System Atrophy (MSA) / Parkinson's Disease (PD) Need for Skilled Speech Therapy Services: No Recommended Referrals: GI Consult Education Completed: 1. Described result of evaluation. and 2. Pt understands evaluation & agrees with goals and treatment plan. Status Active ST Patient: Active Contact Information [facility] Speech Therapy:: Lucy Kumar M.A. NEGATIVE TURNER APPRENTICE Speech-Language Pathologist [facility] [place] [address] [email or web address] [phone]
== END | disposition home or self-care (01) ==
LOC: RAD 12:57
PROVIDERS: PCP Family Medicine; Referring Provider Psychiatry & Neurology Neurology; Visit Provider Psychiatry & Neurology Neurology
DX: R13.10 Dysphagia, unspecified (principal); G20.A1 Parkinson's disease without dyskinesia, without mention of fluctuations
CPT/HCPCS: 74230; 92611

== ENCOUNTER → 2024-08-04 | Outpatient (CLI) | payer MEDICARE, BC, SELFPAY ==
--- NOTE | 2024-08-04 13:45 | CT_ITS ---
PROCEDURE: CHEST WITHOUT CONTRAST 08/04/2024 REASON FOR EXAM: SHORTNESS OF BREATH, WORSENING RESTRICTION ON PFT TECHNIQUE: Chest CT without contrast. Coronal and Sagittal reconstruction series were provided. One or more dose reduction techniques were used (e.g., Automated exposure control, adjustment of the mA and/or kV according to patient size, use of iterative reconstruction technique RADIATION DOSE SUMMARY: CTDlvol: 14.24 mGy DLP: 469 mGycm COMPARISON: Chest radiograph on 03/08/2024. CT scan on 08/13/2023. FINDINGS: Midline tracheostomy tube is in good position. Mild cardiomegaly. Moderate coronary artery calcifications. Mild bilateral basilar atelectatic pulmonary changes. Small sliding hiatal hernia. Mild gaseous dilatation of the esophagus, probably reflux. Mild diffuse spondylosis. Normal unenhanced main pulmonary artery and right and left pulmonary arteries. Normal bilateral peripheral pulmonary arteries. Normal thoracic aorta and visualized great vessels. There is no demonstrated aortic aneurysm. Normal pericardium. Normal mediastinum. Normal hilar regions. Normal visualized trachea and bronchi. The remaining lungs are well expanded. Normal remaining pulmonary parenchyma. Normal pleura. Normal remaining visualized upper abdomen. CT/Chest without Contrast IMPRESSION: IMPRESSION: Coronary artery calcification (CAC) is is present Midline tracheostomy tube is in good position. Mild cardiomegaly. Moderate coronary artery calcifications. Mild bilateral basilar atelectatic pulmonary changes. Small sliding hiatal hernia. Mild gaseous dilatation of the esophagus, probably reflux. Mild diffuse spondylosis. Reading [facility] [address]
== END | disposition home or self-care (01) ==
LOC: CT 13:38
PROVIDERS: PCP Family Medicine; Referring Provider Nurse Practitioner Family; Visit Provider Nurse Practitioner Family
DX: R06.02 Shortness of breath (principal)
CPT/HCPCS: 71250

== ENCOUNTER → 2024-09-07 | Outpatient (CLI) | payer MEDICARE, BC, SELFPAY ==
--- NOTE | 2024-09-07 14:00 | PCM.PR.HP ---
History of Present Illness General Arrival date:: 09/07/24 Arrival time:: 14:01 Date of Referral:: 07/16/24 Date of Evaluation: 09/07/24 Referring Physician: Dr. Richard Munoz Primary Diagnosis: COPD Gold III Severe History of Present Pulmonary Event mMRC Breathless Scale: When is the patient short of breath? Y/N Grade: Description of Breathlessness: 0 I only get breathless with strenuous exercise. 1 I get short of breath when hurrying on level ground or walking up a slight hill. 2 On level ground, I walk slower than people of the same age because of breathless, or have to stop for breath when walking at my own pace. 3 I stop for breath after walking 100 yards or after a few minutes on level ground. 4 I am too breathless to leave the house or I am breathless when dressing. Respiratory Problems: Yes Retain Secretions, Fatigue, Wheezing, Able to Speak in Full Sentences, Dyspnea at Rest, Dyspnea with Activity, Dyspnea Lying Down Flat and Cough with Secretions; No Limited Range of Motion, Chest Pain, Dizziness, Ankle Swelling, Hoarseness, Anxiety or Panic Medications Home Medications levothyroxine 150 mcg tablet (Synthroid) 150 mcg PO DAILY thyroid 01/13/21 aspirin 81 mg chewable tablet (Luis Alberto Chewable Low Dose Aspirin) 81 mg PO DAILY heart health 01/24/22 tamsulosin 0.4 mg capsule 0.4 mg PO DAILY prostate 05/17/22 Handicap placard #1 ea 10/01/22 budesonide 1 mg/2 mL suspension for nebulization 1 mg (2 mL) inhalation BID breathing #120 mL 10/17/23 nitrofurantoin monohydrate/macrocrystals 100 mg capsule 100 mg PO MOWEFR bladder 10/21/23 furosemide 40 mg tablet (Lasix) 20 mg (1/2 x 40 mg) PO 1200 PRN Leg swelling 30 days #0 tabs 11/02/23 clopidogrel 75 mg tablet 75 mg PO DAILY anit platelet #90 tabs 04/06/24 potassium chloride 20 mEq tablet,extended release 20 meq PO DAILY supplement #90 tabs 04/07/24 rosuvastatin 5 mg tablet 5 mg PO DAILY cholesterol #90 tabs 04/10/24 formoterol fumarate 20 mcg/2 mL solution for nebulization (Perforomist) 2 ml inhalation BID #120 mL 04/15/24 nebulizer kits #1 ea 04/15/24 revefenacin 175 mcg/3 mL solution for nebulization (Yupelri) 175 mcg (3 mL) inhalation QDAY #90 mL 04/15/24 ipratropium 0.5 mg-albuterol 3 mg (2.5 mg base)/3 mL nebulization soln 3 ml inhalation Q4H PRN PRN SOB &/OR WHEEZING #360 mL 05/20/24 guaifenesin 1,200 mg tablet, extended release 12 hr (Mucinex) 1,200 mg PO .QD #30 tabs 05/27/24 prednisone 10 mg tablet 10 mg PO QDAY #30 tabs 07/15/24 atropine 1 % eye drops See Rx Instructions buccal DAILY secretions #15 mL 07/23/24 carbidopa 25 mg-levodopa 100 mg tablet 2 tab PO TID parkinsons #540 tabs 07/23/24 fludrocortisone 0.1 mg tablet 0.2 mg (2 x 0.1 mg) PO QAM #180 tabs 07/23/24 ropinirole 1 mg tablet 1 mg PO TID #90 tabs 07/23/24 Allergies Allergies vibegron (From Gemtesa) Allergy (Severe, Verified 09/02/24 11:14) Rash Secretions Thick:: Yes Amount/Day:: 2 TBSP AM: Yes Sleep Disorder Evaluation Hx of Sleep Apnea: Yes Do you snore loudly (louder than talking or can be heard through closed doors)?: No Do you often feel tired/ fatigued/ sleepy during daytime?: No Has anyone observed you stop breathing during sleep?: No History of Hypertension (for STOP score): Yes STOP Results: Negative Medical Utilization Medical Devices Do you use a peak flow meter at home?: No Do you use a spacer device with your inhalers?: No Medical Utilization Number of hospital visits in the last year?: 0 Number of emergency room visits in the last year?: 2 Do you see your physician on a regular schedule?: Yes How often?: every 3 months Advanced Directives Advanced Directives Do you have a Healthcare Power of Reeling And Tubing Machine 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?: Yes Living Will: Yes Advance Directives Information Provided: Yes Advance Directives on File: No DNR Order?:: No Past Medical History Covid-19 Screening Physicial Symptoms Other Clinical Concerns Exposure Risk Pertinent Comorbidities 65 years or older:: Yes Has a chronic lung disease or moderate to severe asthma:: Yes Has a serious heart condition:: Yes Medical History Medical History Transient hypotension Acute dyspnea Acute exacerbation of chronic obstructive pulmonary disease Fall Debility BPH (benign prostatic hyperplasia) GERD (gastroesophageal reflux disease) Dysphagia Vocal cord dysfunction (HFpEF) heart failure with preserved ejection fraction Carotid artery disease Dizziness Hypokalemia Hypoxia Asthma-COPD overlap syndrome Hyperlipidemia COPD (chronic obstructive pulmonary disease) Carotid artery stenosis Osteoarthritis of right hip Angioedema Diastolic dysfunction Throat clearing Moist mucous membranes of ear, nose, and throat Cough Oral thrush Carotid artery, internal, occlusion MRAYJO (obstructive sleep apnea) Smoking greater than 30 pack years Chronic diastolic (congestive) heart failure Orthostatic hypotension Fatigue Hypersomnia Parkinson's disease Mild cognitive impairment Benign localized hyperplasia of prostate with urinary obstruction and lower urinary tract symptoms Weak urinary stream Urinary frequency Urge incontinence of urine Tobacco abuse counseling Tobacco abuse Shortness of breath on exertion Snoring Postoperative hypothyroidism Observed sleep apnea Nocturia Laryngeal spasm Hypertension Hypercholesterolemia Hoarseness of voice Elevated brain natriuretic peptide (BNP) level Elevated troponin level Fungal infection Change in voice CAD (coronary artery disease) Breathing difficult Bradycardia ACS (acute coronary syndrome) Asthma History of nuclear stress test Acute deep vein thrombosis of lower extremity Abnormal CT of the chest Dyspnea Wears glasses Alcohol use Arthritis DVT (deep venous thrombosis) Gastric reflux Smoker Cricopharyngeal dysphagia Parasomnia Bilateral hearing loss Spasm of vocal cords High cholesterol Hypothyroidism Surgical History Surgical History Status post tracheostomy 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 artery (~06/06/21) H/O cardiac catheterization (~06/06/21) Hx of arthroscopy of knee H/O knee surgery H/O thyroidectomy Significant Family History Family History Father COPD (chronic obstructive pulmonary disease) Emphysema lung Myocardial infarction Mother Parkinsons disease Malignant melanoma Social History Smoking History Smoking Status: Former smoker Years Smokin (stopped 5 years ago) Packs Smoked per Day: 1 Alcohol Use Alcohol Usage: No Substance Abuse Hx Substance Use: No Occupation Occupation (List type of work in comments):: Retired Functioning ADL/IADL Current Ability Current Ability: Independent: Self-Care (e.g.,grooming, dressing, & bathing), Independent: Ambulation, Independent: Transfer and Independent: Household tasks (e.g., light meal prep, laundry, shopping) Pt Functioning Prior to Problem Prior Functioning: Self-Care (e.g.,grooming, dressing, & bathing): Independent, Ambulation: Independent, Transfer: Independent and Household tasks (e.g., light meal prep, laundry, shopping): Independent Social Environment Status Marital Status: Current Living Arrangements Living Environment:: Spouse Children How many children do you have?: 1 Do any of your children live nearby?: Yes Safety Do you feel safe in your surroundings?: Yes Assistance Do you need any assistance at home?: no Review of Systems Review of Systems Review of Systems Respiratory: Reports Cough, SOB at Rest, SOB upon Exertion, Sputum production, Wheezing, Appetite, Normal and Sleep, Normal; Denies Dizziness/Lightheadedness, Fatigue, PVD or Sexual changes Pain Is Patient Pain Free?: Yes Risk Factor Assessment Chief Complaint Chief Complaint: COPD III Severe Vital Signs Pulse Rate: 80 Pulse Rhythm: Regular Pulse Ox: 91 Blood Pressure: 126/83 Diabetes Nutrition Referral for Diabetes: No Obesity Height: 5 ft 9 in Weight:: 203 lb Weight in Pounds: 203.0 lbs Body Mass Index (BMI): 29.9 Physical Activity Physical Inactivity: None Risk Stratification Risk Guidelines: Moderate Risk: Risk Factor for Smoking, Risk Factor for Diabetes, Risk Factor for Sedentary Lifestyle and Risk Factor for Depression and Highest Risk: Risk Factor for Dyslipidemia, Risk Factor for Diabetes, Risk Factor for Obesity and Risk Factor for Hypertension For Smoking Smoking Risk Guidelines For Dyslipidemia Dyslipidemia Risk Guidelines For Diabetes Mellitus Diabetes Risk Guidelines For Obesity/Overweight Obesity/Overweight Risk Guidelines For Hypertension Hypertension Risk Guidelines For Sedentary Lifestyle Sedentary Lifestyle Risk Guidelines For Depression Depression Risk Guidelines Motivation Motivation to Participate On a scale of 1 to 10, how prepared are you to commit to attending program?: 3 What do you see as barriers to successfully being able to complete the program?: nothing What do you see as the benefits of succesfully completing the program? In other words, what do you hope to get out of participating in the program?: improved energy Are there issues you are dealing with that will interfere with completing the program?: no Do you have a spouse or signficant other, family or friends who will help support you to complete the program?: yes Diagnostic Data Review 6 Minute Walk Test 6 Minute Walk Test: 755 feet Pulmonary Function Test FEV1:: 32 FVC:: 79 FEV1/FVC%:: 40 Gold Classification: GOLD class III(severe COPD)with FEV1/FVC<70, 30%</=FEV1< 50% predicted
[2024-09-07 14:12] VITALS: BP 126/83
--- NOTE | 2024-09-07 14:12 | PR.ITP_ITS ---
General Information2 General Information Admitting Diagnosis: COPD GOLD III Severe Gold Classification:: GOLD 3: Severe Oxygen: none PFT FEV1:: 32 FVC:: 79 FEV1/FVC%:: 40 Personal Learning Style/Barriers Personal Learning Style:: Audio/Visual Barriers to Learning: Cognitive/learning impairment Stage of change r/t lifestyle modifications: Contemplation Education/Goals [place] Patient Goals: Experience less dyspnea: Initial Assessment, Improve energy level: Initial Assessment, Improve the ability to cope with ADLs: Initial Assessment, Improve knowledge of lung disease: Initial Assessment, Understand how to use medications: Initial Assessment, Control panic/anxiety: Initial Assessment, Improve diet and nutrition: Initial Assessment, Improve my quality of life: Initial Assessment and Reduce Stress/relaxation techniques: Initial As sessment Exercise - Initial Assessment Visit Date of Eval: 09/07/24 (initial eval) Problem/Goals Problems: Deconditioning, No regular exercise, Knowledge deficit exercise guidelines and Knowledge deficit exercise safety Goals:: UT: 2-3/wk for 18 weeks [36 sessions] Functional Capacity Test Number of feet walked: 755 Lowest SPO2 %: 90 (on room air) Physician Prescribed Exercise Modalities: Anshul Bartlett AD-7, [employer]Fit Stepper, Gravity Jack Pro-II Ergometer and Gravity Jack Lateral [place] Frequency (days/week): 3 Duration (Minutes):: 30-45 Intensity: 60-80% of age predicted maximum heart rate reserve Current METSs:: 2 Target HR:: 116 (92-116) Resting Blood Pressure: 126/83 Minimum SpO2 with exercise: 91 (on room air) EKG Type: NSR Current Minutes of Exercise: 30-45 Plan Plan and Plan to Review:: Benefits of exercise, Core components of exercise, How to measure dyspnea level, How to monitor dyspnea level, Exercise intensity, Exercise safety guideline, Home exercise guidelines and Gianna: 3-4/11-13 Home Exercise Mode: Other Nutrition/Wt Mgmt - Initial Visit Date of Eval: 09/07/24 (initial eval ) Problems/Goals Problems: Overweight Goals: Wt Loss 1-2 lbs per week Weight Management Knowledge Deficit Management of:: Overweight, Role of exercise in weight control and Weight control w/Prednisone Admit Height:: 5 ft 9 in Admit Weight:: 203 lb Admit BMI:: 29.9 Intervention Referral to dietitian:: No Will attend diet classes:: Yes Intervention/Plan: Instruct on ideal BMI & set weight loss goal w/patient, Assist pt to ID & incorporate diet changes for weight loss by S9, Refer to Structured Weight Loss program as appropriate, Encourage goal of using 250- 300dcal per session for weight loss and Other additional plan/interventions Plan Nutrition Plan: Yes: Review BMI or WC & identify target wt & strategies for wt control, Yes: Nutrition education class:, Yes: Medication education class [Prednisone]:, Yes: Weight control education class:, Yes: Education re: Need for ongoing weight monitoring, Yes: Food diary: and Yes: Physical activity log: Nutrition/Wt Mgmt - 30-Day Weight Management Height: 5 ft 9 in Weight:: 203 lb BMI: 29.9 Nutrition/Wt Mgmt - 60-Day Weight Management Height: 5 ft 9 in Weight:: 203 lb BMI: 29.9 Nutrition/Wt Mgmt - 90-Day Weight Management Height: 5 ft 9 in Weight:: 203 lb BMI: 29.9 Nutrition/Wt Mgmt - Final Weight Management Height: 5 ft 9 in Weight:: 203 lb BMI: 29.9 Psychosocial - Initial Assess Visit Date of Eval: 09/07/24 (initial eval ) Problems/Goals History of Emotional Disorders: None Psychosocial Goals: 1. Patient is free from overwhelming symtoms of depression (or anxiety, 2. Identifies personal stressors & states the strategies for managing, 3. Identifies activities to decrease isolation and/or symptoms of, 4. Improved psychosocial coping skills., 5. Verbalizes coping strategies., 6. Adequate treatment of depression. and 7. Improved Q.O.L. Psychosocial Test Tool Used:: PHQ-9 Questionnaire PHQ-9 Score: 9 Referral to Behavioral Health PS - Interventions: Yes: Attend Stress Management Classes Intervention/Plan: See List Interventions/Plan:: Assess stressors,coping strategies & signs of derpression on admission, Instruct/assist pt to develop coping & personal stress Mgt strategies, Refer to Behavioral Health if appropriate, Refer to Physician if appropriate, Instruct patient to recognize signs & symptoms of depression, Instruct patient to recog and Other additional plan/intervention Psychosocial - 30-Day Problems/Goals History of Emotional Disorders: None Psychosocial Goals: 1. Patient is free from overwhelming symtoms of depression (or anxiety, 2. Identifies personal stressors & states the strategies for managing, 3. Identifies activities to decrease isolation and/or symptoms of, 4. Improved psychosocial coping skills., 5. Verbalizes coping strategies., 6. Adequate treatment of depression. and 7. Improved Q.O.L. Psychosocial Test Tool Used:: PHQ-9 Questionnaire PHQ-9 Score: 9 Referral to Behavioral Health PS - Interventions: Yes: Attend Stress Management Classes Plan Interventions/Plan:: Assess stressors,coping strategies & signs of derpression on admission, Instruct/assist pt to develop coping & personal stress Mgt strategies, Refer to Behavioral Health if appropriate, Refer to Physician if appropriate, Instruct patient to recognize signs & symptoms of depression, Instruct patient to recog and Other additional plan/intervention Psychosocial - 60-Day Problems/Goals History of Emotional Disorders: None Psychosocial Goals: 1. Patient is free from overwhelming symtoms of depression (or anxiety, 2. Identifies personal stressors & states the strategies for man aging, 3. Identifies activities to decrease isolation and/or symptoms of, 4. Improved psychosocial coping skills., 5. Verbalizes coping strategies., 6. Adequate treatment of depression. and 7. Improved Q.O.L. Psychosocial Test Tool Used:: PHQ-9 Questionnaire PHQ-9 Score: 9 Referral to Behavioral Health PS - Interventions: Yes: Attend Stress Management Classes Plan Interventions/Plan:: Assess stressors,coping strategies & signs of derpression on admission, Instruct/assist pt to develop coping & personal stress Mgt strategies, Refer to Behavioral Health if appropriate, Refer to Physician if appropriate, Instruct patient to recognize signs & symptoms of depression, Instruct patient to recog and Other additional plan/intervention Psychosocial - 90-Day Problems/Goals History of Emotional Disorders: None Psychosocial Goals: 1. Patient is free from overwhelming symtoms of depression (or anxiety, 2. Identifies personal stressors & states the strategies for managing, 3. Identifies activities to decrease isolation and/or symptoms of, 4. Improved psychosocial coping skills., 5. Verbalizes coping strategies., 6. Adequate treatment of depression. and 7. Improved Q.O.L. Psychosocial Test Tool Used:: PHQ-9 Questionnaire PHQ-9 Score: 9 Referral to Behavioral Health PS - Interventions: Yes: Attend Stress Management Classes Plan Interventions/Plan:: Assess stressors,coping strategies & signs of derpression on admission, Instruct/assist pt to develop coping & personal stress Mgt strategies, Refer to Behavioral Health if appropriate, Refer to Physician if appropriate, Instruct patient to recognize signs & symptoms of depression, Instruct patient to recog and Other additional plan/intervention Psychosocial - Final Assess Problems/Goals History of Emotional Disorders: None Psychosocial Goals: 1. Patient is free from overwhelming symtoms of depression (or anxiety, 2. Identifies personal stressors & states the strategies for managing, 3. Identifies activities to decrease isolation and/or symptoms of, 4. Improved psychosocial coping skills., 5. Verbalizes coping strategies., 6. Adequate treatment of depression. and 7. Improved Q.O.L. Psychosocial Test Tool Used:: PHQ-9 Questionnaire PHQ-9 Score: 9 Referral to Behavioral Health PS - Interventions: Yes: Attend Stress Management Classes Plan Interventions/Plan:: Assess stressors,coping strategies & signs of derpression on admission, Instruct/assist pt to develop coping & personal stress Mgt strategies, Refer to Behavioral Health if appropriate, Refer to Physician if appropriate, Instruct patient to recognize signs & symptoms of depression, Instruct patient to recog and Other additional plan/intervention Oxygen & Oxygen Titration Init Visit Date of Eval: 09/07/24 (initial eval ) Initial Assessment Oxygen on Admission: None SpO2:: 91 (on room air) Patient Reports:: Prod cough daily <1 Tbsp Goal Oxygen & Oxygen Tritration Goals: Effective hypoxemia control and Uses O2 as Rx'd/safely Plans Plan: Monitor SpO2 rest & with exercise, Recommend appropriate FiO2 to Pt/MD, Assist to contact DME for O2, Train appropriate O2 use at rest, Train appropriate O2 use with exercise and Train O2 safety & systems Reviewed prescribed medications:: Purpose, Schedule, Side effects and Importance of compliance Instruct correct technique/timing & care:: MDI, DPI, Nebulizer and Return demo use of inhaler Bronchial Hygiene Plan: Controlled cough, CPT, Vibratory PEP device, VEST, Role of exercise in secretion clearance, NS Nasal spray, Hydration, Hand hygiene, Evaluate sputum, When to call MD, Signs/symptoms to report: and Influenza/Pneumovax vaccines Oxygen & Oxygen Titration 30D Reassessment SpO2:: 91 (on room air) Oxygen & Oxygen Titration 60D Reassessment SpO2:: 91 (on room air) Oxygen & Oxygen Titration 90D Reassessment SpO2:: 91 (on room air) Oxygen & Oxygen Titration MOHSEN Reassessment SpO2:: 91 (on room air) Core Components - Initial Visit Date of Eval: 09/07/24 (initial eval ) Hypertension Hypertension Diagnosis:: Hypertension ICD-10 I10 BP: 126/83 [employer] Hypertension Guidelines Low Sodium diet: Yes Outcomes/Goals: Able to verbalize/achieve optimal blood pressure <130/80 and Incorporates diet changes & exercise for blood pressure control by DC Tobacco - Initial Assessment Tobacco Program Goals Stages of Change:: Maintenance Learning Barriers: Cognitive Do you have family support?: Yes Tobacco Use: Non-smoker How long ago did you quit using tobacco products?: Greater than or equal to 6 months ago How many cigarettes do you smoke per day?: 20 Years Smokin (stopped 5 years ago) Gave Education Materials For:: Tobacco Triggers, Pulmonary Disease, Risk Factors, Breathing Techniques, Medical Compliance, Pulmonary A&P, Exacerbation Signs & Symptoms and Stress & Relaxation Exacerbation Mgmt & Airway Clearance Bronchial Hygiene Problems:: Ineffective secretion clearance Goals: Pt demonstrates effective cough, effective secretion clearance. and Pt describes signs and symptoms of infection. Patient Reports:: Prod cough daily <1 Tbsp Plan: Monitor SpO2 rest & with exercise, Recommend appropriate FiO2 to Pt/MD, Assist to contact DME for O2, Train appropriate O2 use at rest, Train appropriate O2 use with exercise and Train O2 safety & systems Instruct correct technique/timing & care:: MDI, DPI, Nebulizer and Return demo use of inhaler Bronchial Hygiene Plan: Controlled cough, CPT, Vibratory PEP device, VEST, Role of exercise in secretion clearance, NS Nasal spray, Hydration, Hand hygiene, Evaluate sputum, When to call MD, Signs/symptoms to report: and Influenza/Pneumovax vaccines Medication Interventions/plans: Instruct on medication effects & side effects, Review medication list w/patient every two weeks and Instruct importance of taking meds as ordered & assist problem solving Medication Goals: Adherence to prescribed medications and Correct technique/timing & care of MDI, DPI, nebulizer, and spacer. Does pt report taking home meds as prescribed?: Yes Reviewed prescribed medications:: Purpose, Schedule, Side effects and Importance of compliance Diabetes Diabetes:: No Referral to dietitian:: No Will attend diet classes:: Yes Core Components - 30 DAYS Hypertension Hypertension Diagnosis:: Hypertension ICD-10 I10 Resting Blood Pressure:: 126/83 [employer] Hypertension Guidelines Outcomes/Goals: Able to verbalize/achieve optimal blood pressure <130/80 and Incorporates diet changes & exercise for blood pressure control by DC Tobacco - 30-Day Tobacco Program Goals Stages of Change:: Maintenance Do you have family support?: Yes Tobacco Use: Non-smoker How many cigarettes do you smoke per day?: 20 Gave Education Materials For:: Tobacco Triggers, Pulmonary Disease, Risk Factors, Breathing Techniques, Medical Compliance, Pulmonary A&P, Exacerbation Signs & Symptoms and Stress & Relaxation Diabetes Diabetes:: No Core Components - 60 DAYS Hypertension Hypertension Diagnosis:: Hypertension ICD-10 I10 Resting Blood Pressure:: 126/83 [employer] Hypertension Guidelines Outcomes/Goals: Able to verbalize/achieve optimal blood pressure <130/80 and Incorporates diet changes & exercise for blood pressure control by DC Tobacco - 60-Day Tobacco Program Goals Stages of Change:: Maintenance Do you have family support?: Yes Tobacco Use: Non-smoker How many cigarettes do you smoke per day?: 20 Gave Education Materials For:: Tobacco Triggers, Pulmonary Disease, Risk Factors, Breathing Techniques, Medical Compliance, Pulmonary A&P, Exacerbation Signs & Symptoms and Stress & Relaxation Diabetes Diabetes:: No Core Components - 90 DAYS Hypertension Hypertension Diagnosis:: Hypertension ICD-10 I10 Resting Blood Pressure:: 126/83 [employer] Hypertension Guidelines Outcomes/Goals: Able to verbalize/achieve optimal blood pressure <130/80 and Incorporates diet changes & exercise for blood pressure control by DC Tobacco - 90-Day Tobacco Program Goals Stages of Change:: Maintenance Do you have family support?: Yes Tobacco Use: Non-smoker How many cigarettes do you smoke per day?: 20 Gave Education Materials For:: Tobacco Triggers, Pulmonary Disease, Risk Factors, Breathing Techniques, Medical Compliance, Pulmonary A&P, Exacerbation Signs & Symptoms and Stress & Relaxation Diabetes Diabetes:: No Core Components - Final Hypertension Hypertension Diagnosis:: Hypertension ICD-10 I10 Resting Blood Pressure:: 126/83 [employer] Hypertension Guidelines Outcomes/Goals: Able to verbalize/achieve optimal blood pressure <130/80 and Incorporates diet changes & exercise for blood pressure control by DC Tobacco - Final Tobacco Program Goals Stages of Change:: Maintenance Do you have family support?: Yes Tobacco Use: Non-smoker How many cigarettes do you smoke per day?: 20 Diabetes Diabetes:: No Patient Health Questionnaire PHQ-9 Screening Initial Assessment: 1. Little interest or pleasure in doing things: Not at all 2. Feeling down, depressed, or hopeless: Not at all 3. Trouble falling or staying asleep, or sleeping too much: More than half the days 4. Feeling tired or having little energy: Nearly every day 5. Poor appetite or overeating: More than half the days 6. Feeling bad about yourself -- or that you are a failure or have let yourself or your family down: Not at all 7. Trouble concentrating on things, such as reading the newspaper or watching television: Not at all 8. Moving or speaking so slowly that other people could have noticed. Or the opposite - being so fidgety or restless that you have been moving around a lot more than usual: More than half the days 9. Thoughts that you would be better off , or of hurting yourself in some way: Not at all Total Score: 9 Knowledge Questionaire (BCKQ) Information Information: [place] COPD Knowledge Questionnaire (BCKQ) This questionnaire is designed to find out what you know about your lung problem. It should be completed without help form anyone else. This usually takes between 10 and 20 minutes. Your answers will help us to find out what information you need to help you to understand and manage your lung condition. [employer] the ute which you think is the correct answer. Questions 1. In COPD: b. COPD can only be confirmed by breathing tests: Don't know c. In COPD ther is usually gradual worsening over time: Don't know d. In COPD oxygen levels in the blood are always low: True e. COPD is usually in people less than 40 years old: True 2. COPD: [place] than 80% of COPD cases are caused by cigarette smoking: True b. COPD can be caused by occupational dust exposure: True c. Longstanding asthma can develop into COPD: Don't know d. COPD is commonly an inherited disease: False e. Women are less vunerable to the effects of cigarette than men: False 3. The following symptoms are Common in COPD: a. Swelling of the ankles is common in COPD:: True b. Fatigue [tiredness] is common in COPD: True c. Wheezing is common in COPD: True d. Crushing chest pain is common in COPD: Don't know e. Rapid weight loss is common in COPD: False 4. Breathlessness in COPD: a. Severe breathlessness prevents travel by air: True b. Breathlessness can be worsened by eating large meals: False c. Breathlessness means that your oxygen levels are low: True d. Breathlessness is a normal response to exercise: Don't know e. Breathlessness is primarily caused by a narrowing of the bronchial tubes: True 5. Phlegm (sputum): a. Coughing phlegm is a common symptom in COPD: True b. Clearing phlegm is more difficult if you get dehydrated: False c. Bronchodilator inhalers can help clear phlegm: True d. Phlegm causes harm if swallowed: True e. Clearing phlegm can be assisted by breathing exercises: Don't know 6. Chest infections / exacerbations: a. Chest infections often cause coughing of blood: False b. Chest infection phlegm usually becomes coloured (ylw/grn): Don't know cExerbations (episodes of worsening) can occur in the absence of chest infection: Don't know d. Chest infections are always accompanied by a high temperature: Don't know e. Steroid tablets should be taken whenever there is an exacerbation: True 7. Excercise in COPD: aWalking excercises better than breathing to improve fitness: True b. Exercise should be avoided as it strains the lungs: False c. Exercise can help maintain your bone density: True d. Exercise helps relieve depression: True e. Exercise should be stopped if it makes you breathless: False 8. Smoking: a. Stopping smoking will reduce the risk of heart disease: Don't know b. Stopping smoking will slow down further lung damage: Don't know c. Stopping smoking is pointless as the damage is done: Don't know d.Stopping smoking usually results in improved lung function: Don't know eNicotine replacement therapy only available on prescription: Don't know 9. Vaccination: a. A flu jab is recommended every year: Don't know b. You can get flu from having a flu jab: True c. You can only have a flu jab if you are 65 or over: Don't know d. A pneumonia jab protects against all forms of pneumonia: True e.You can have a pneumonia jab and a flu job on the same day: Don't know 10. Inhaled bronchodilators: a. Bronchodilators act quickly (within 10 minutes): True b. Both short & long acting bronchodilators can be taken on the same day: True c. Spacers (volumatic,nebuhaler,serochamber)should be dried w/atowel after washing: True d. A spacer device increases the medication to the lungs: True e. Tremor may be a side effect of bronchodilators: False 11. Antibiotic treatment in COPD: a. To be effective, the course should last at least 10 days: True b. Excessive use of antibiotics can cause resistant bacteria (germs): Don't know c. Antibiotics will clear all chest infections: False d. Antibiotic treatment is necessary for an exacerbation (worsening) however mild: Don't know e. Seek advice if antibiotics cause severe diarrhoea: True 12. Steroid tablets given for COPD (eg Prednisolone): a. Steroid tablets help strengthen muscles: True b. Steroid tablets should be avoided if there is a chest infection: Don't know c. The risk of long-term side effects due to steroids is less w/short courses then w/continous treatment: True dIndigestion is common side effect from using steroid tablet: False e. Steroid tablets can increase your appetite: True 13. Inhaled steroids (brown, red or orange): a. Inhaled steroids should be stopped if you are given steroid tablets: True bSteroid inhalers can be used for rapid relief breathlessnes: True c. Spacer devices reduce the risk of getting thrush in the mouth: True d.Steroid inhaler should be taken before your bronchodilator: True e. Inhaled steroids improve lung function in COPD: True COPD Assessment Test [CAT] Questions Never cough = 0, Cough all the time = 5: 4 No phlegm = 0, Chest full of phlegm = 5: 5 No chest tightness = 0, Chest very tight = 5: 3 No breathless w/exertion = 0, Very breathless w/exertion = 5: 4 No limitations w/activity = 0, Very limited w/activity = 5: 5 Confident leaving home = 0, Not at all confident = 5: 3 Sleep soundly = 0, Don't sleep soundly = 5: 2 Lots of energy = 0, No energy at all = 5: 5 Total CAT score:: 31 Self-Efficacy 6-Item Scale Initial Assessment: We would like to know how confident you are in doing certain activities. Please select your confidence level for: Fatigue Select Number: 5 Physical Discomfort or Pain Select Number: 6 Emotional Distress Select Number: 8 Other Symptoms or Health Problems Select Number: 3 Different Tasks and Activities Select Number: 5 Medication Select Number: 5 Total Score:: 5 Nutrition Survey Nutrition Survey Instructions Scoring Instructions Nutrition Survey Initial: Have you lost >10 lbs over the past 2 months without trying?: No Are you following a special diet at home for diabetes, low fat, or low salt?: No Are you interested in meeting with a dietitian for help understanding your diet?: No Do you eat less than 3 meals a day?: No Do you eat fatty meats (napoles, sausage, ribs, etc), fried foods, desserts, large amounts of salad dressings, margarine, butter, or cheese most days?: Yes Do you have food allergies? [Enter types in comment field]: No Do you eat in restaurants more than 3 times a week?: No Do you season food with salt, seasoning salt, or garlic salt?: Yes Do you used canned, boxed, frozen meals, or soups, seasoning packets?: Yes Total Score:: 3
[2024-09-07 14:23] VITALS: BP 126/83
[2024-09-07 14:37] VITALS: PULSE 80; O2SAT 91
[2024-09-07 15:07] VITALS: O2SAT 91
[2024-09-07 15:33] VITALS: BMI 29.9
[2024-09-07 15:34] VITALS: BMI 29.9
--- OUTSIDE RECORDS SUMMARY | 2024-09-07 20:59 | XMS RPT_ITS | CCD ---
Author Organization [facility] Care Team Providers Care Breaker Mechanic Name Role Phone Biju Lobo Unavailable Unavailable Unavailable Unavailable Unavailable Biju Lobo Unavailable Yvan Walker Unavailable Unavailable Macario Bond Unavailable Unavailable Princess Mireille Unavailable Unavailable Giovanni Cantu Unavailable Jayne Godinez Unavailable Dr. Biju Lobo Primary Care UnavailAlfa Florence Attending Unavaila Dr. Biju Canales Primary Care Provider Dr. Biju Lobo Other Provider Dr. Wolfgang Shetty Attending Provider Dr. Biju Lobo Referring Provider Dr. Christian Hernandez Attending Provider Dr. Christian Hernandez Referring Provider Dr. Bobby Shetty Attending Provider Dr. German Nayak Attending Provider Dr. German Nayak Referring Provider Dr. German Nayak Other Provider Dr. Jasson Deng Attending Provider Dr. Richard Munoz Attending Provider Dr. Biju Lobo Primary Care Provider [phone] Biju Lobo Referring Provider Geno COMMERCIAL DESIGNER, COMMERCIAL DESIGNER-C Karen Attending Provider Dr. Biju Lobo Primary Care Provider [phone] Christian Hernandez Attending Provider [phone] Biju Lobo Primary Care Provider [phone] Biju Lobo Referring Provider Dr. German Nayak Attending Provider Dr. Biju Lobo Primary Care Provider [phone] Biju Lobo Referring Provider Geno COMMERCIAL DESIGNER, COMMERCIAL DESIGNER-C Karen Attending Provider Dr. German Nayak Attending Provider Dr. Christian Hernandez Attending Provider [phone] Dr. Harrison Macario Attending Provider Dr. Christian Hernandez Referring Provider [phone] Biju Lobo Primary Care Provider [phone] Biju Lobo Referring Provider Geno COMMERCIAL DESIGNER, COMMERCIAL DESIGNER-C Karen Attending Provider [phone] Dr. Moses Grady Emergency Provider [phone] Dr. Delfin Russell Admit Provider Dr. Delfin Russell Other Provider Dr. Ravinder Beauchamp Attending Provider Dr. Delfin Russell Attending Provider Dr. Harrison Spears Attending Provider Dr. Harrison Spears Other Provider Dr. Biju Lobo Primary Care Unavaila NEVIN Lima Attending Unavailable NEVIN ROGERS Attending Unavailable YAMIL, BIJU A Primary Care Unavailable Dr. Harrison Spears Referring Provider Dr. Biju Lobo Primary Care Provider Dr. Biju Lobo Referring Provider Dr. Christian Hernandez Attending Provider Dr. Harrison Macario Attending Provider Dr. Christian Hernandez Referring Provider Geno COMMERCIAL DESIGNER, COMMERCIAL DESIGNER-C Karen Attending Provider Dr. Moses Grady Emergency Provider [phone] Drew, Dr. Lenz Admit Provider Drew, Dr. Lenz Other Provider Nito, Dr. Castellon Attending Provider Dr. Harrison Spears Referring Provider Drew, Dr. Lenz Attending Provider Dr. Harrison Spears Attending Provider Dr. Harrison Spears Other Provider Yamil POWELL, Biju A Primary Care Provider Biju Lobo DO Unavailable CINTHIA TRAMMELL Attending Unavailable BIJU LOBO Primary Care Unavailable Dr. Biju Lobo Primary Care Provider Dr. Biju Lobo Referring Provider Dr. Gilbert Hoang Attending Provider Biju Lobo DO A Primary Care Provider Jamie Grijalva MD Unavailable Biju Lobo DO Primary Care Provider Gilbert Hoang MD Unavailable Biju Lobo DO A Primary Care Provider Biju Lobo DO Primary Care Provider Dr. Biju Lobo DO Primary Care Provider Tonia CUNHA, Dr. Beasley Attending Provider Tonia CUNHA, Dr. Beasley Emergency Provider Yamil DO, Dr. Peck Referring Provider David CUNHA, Dr. Gonzales Attending Provider Kathe CUNHA, Dr. Akbar Tatum Attending Provider [phone] Kathe CUNHA, Dr. Akbar Tatum Referring Provider Viktor CUNHA, Dr. Hunt Attending Provider Viktor CUNHA, Dr. Hunt Referring Provider Shamika GODFREY-CTita Attending Provider Biju Lobo DO Primary Care Provider Yamil POWELL, Dr. Peck Primary Care Provider Tonia CUNHA, Dr. Beasley Attending Provider Tonia CUNHA, Dr. Beasley Emergency Provider Yamil DO, Dr. Peck Referring Provider David CUNHA, Dr. Gonzales Attending Provider Kathe CUNHA, Dr. Akbar Tatum Attending Provider [phone] Kathe CUNHA, Dr. Akbar Tatum Referring Provider Viktor CUNHA, Dr. Hunt Attending Provider Viktor CUNHA, Dr. Hunt Referring Provider Shamika GODFREY-Tita Gale Attending Provider David CUNHA, Dr. Gonzales Referring Provider Amirah CUNHA, Dr. Trery Attending Provider BIJU LOBO A Referring Unavailable CAROLE, ABBIE W Attending Unavailable YAMILBIJU RAYMOND A Primary Care Unavailable CAROLE, ABBIE W Admitting Unavailable SELF, SELF Referring Unavailable CAROLE, ABBIE W Attending Unavailable YAMIL, BIJU A Primary Care Unavailable YAMIL, BIJU A Referring Unavailable CAROLE, ABBIE W Attending Unavailable YAMIL, BIJU A Primary Care Unavailable YAMIL, BIJU A Referring Unavailable YAMIL, BIJU A Primary Care Unavailable CAROLE, ABBIE W Attending Unavailable CAROLE, ABBIE W Referring Unavailable CAROLE, ABBIE W Attending Unavailable YAMIL, BIJU A Primary Care Unavailable YAMIL, BIJU A Referring Unavailable YAMIL, BIJU A Primary Care Unavailable CAROLE, ABBIE W Attending Unavailable YAMIL, BIJU A Primary Care Unavailable CAROLE, ABBIE W Referring Unavailable TEGAN, JAMIE Angel Referring Unavailable CAROLE, ABBIE W Attending Unavailable YAMIL, BIJU A Primary Care Unavailable Shamika COMMERCIAL DESIGNER-C, Tita Maza Referring Provider Dr. Biju Lobo DO Primary Care Provider Shamika COMMERCIAL DESIGNER-CTita Other Provider Dr. Richard Munoz DO Attending Provider Dr. Biju Lobo DO Primary Care Provider Dr. Biju Lobo DO Referring Provider Dr. Christian Hernandez MD Attending Provider Dr. Biju Lobo DO Primary Care Provider Dr. Biju Lobo DO Primary Care Provider Dr. Gilbert Hoang MD Attending Provider Dr. Biju Lobo DO Referring Provider Dr. Richard Munoz DO Attending Provider Dr. Biju Lobo DO Primary Care Provider Dr. Biju Lobo DO Referring Provider Shamika COMMERCIAL DESIGNER-C, Tita Maza Attending Provider Ramos Randall Attending Unavailable Yamil, Biju Primary Care Unavailable Yamil, Biju Primary Care Unavailable Tita Wick Referring Unavailable Tita Wcik Attending Unavailable Gilbert Hoang Attending Unavailable Yamil, Biju Primary Care Unavailable Yamil, Biju Referring Unavailable Yamil, Biju Primary Care Unavailable Yuniel, Eugene Chi Admitting Unavailable Yuniel, Eugene Chi Attending Unavailable Yuniel, Eugene Chi Referring Unavailable Noah Morgan Attending Unavailable Yamil, Biju Primary Care Unavailable Yamil, Biju Primary Care Unavailable Ramos Randall Attending Unavailable Pj Almanza Admitting Unavailable AlmanzaPj spain Consulting Unavailable Danita Spaulding Attending Unavailable Yamil, Biju Primary Care Unavailable Delfin Russell Attending Unavailable Nikolai Freeman Consulting Unavailable Nikolai Freeman Admitting Unavailable Yamil, Biju Primary Care Unavailable Frida Newell Consulting Unavailable Yamil, Biju Primary Care Unavailable Gilbert Hoang Attending Unavailable Yamil, Biju Referring Unavailable Almanza, Pj Admitting Unavailable Almanza, Pj Consulting Unavailable Almanza, Pj Attending Unavailable Yamil, Biju Primary Care Unavailable Yamil, Biju Primary Care Unavailable Harrison Macario Attending Unavailable Christian Hernandez Referring Unavailable Yamil, Biju Primary Care Unavailable Tita Wick Referring Unavailable Tita Wick Consulting Unavailable Richard Munoz Attending Unavailable Yamil, Biju Primary Care Unavailable Tita Wick Referring Unavailable Tita Wick Attending Unavailable Yamil, Biju Primary Care Unavailable Christian Hernandez Referring Unavailable Christian Hernandez Attending Unavailable Akbar Archuleta Attending Unavailable Akbar Archuleta Referring Unavailable Yamil, Biju Primary Care Unavailable Bijal IICinthia Attending Unavailable Bijal IICinthia Referring Unavailable Yamil, Biju Primary Care Unavailable Yamil, Biju Primary Care Unavailable Abraham Hernandezmond Referring Unavailable Christian Hernandez Attending Unavailable Yamil, Biju Primary Care Unavailable Tita Wick Referring Unavailable Richard Munoz Attending Unavailable Yamil, Biju Primary Care Unavailable RuTita shepherd Attending Unavailable Yamil, Biju Referring Unavailable Yamil, Biju Primary Care Unavailable Yamil, Biju Referring Unavailable Christian Hernandez Attending Unavailable Tita Wick Attending Unavailable Yamil, Biju Primary Care Unavailable Yamil, Biju Referring Unavailable Delfin Russell Attending Unavailable Nikolai Freeman Consulting Unavailable Nikolai Freeman Admitting Unavailable Yamil, Biju Primary Care Unavailable Frida Newell Consulting Unavailable Delfin Russell Consulting Unavailable Yamil, Biju Primary Care Unavailable Tita Wick Referring Unavailable Tita Wick Attending Unavailable Yamil, Biju Primary Care Unavailable Baddour, Christian Attending Unavailable Yamil, Biju Referring Unavailable Baddour, Christian Attending Unavailable Yamil, Biju Primary Care Unavailable Yamil, Biju Referring Unavailable Yamil, Biju Primary Care Unavailable Yamil, Biju Referring Unavailable Baddour, Christian Attending Unavailable Yamil, Biju Referring Unavailable Karen Lora NP Attending Unavailable Yamil, Biju Primary Care Unavailable Yamil, Biju Primary Care Unavailable Yamil, Biju Referring Unavailable Richard Munoz Attending Unavailable Yamil, Biju Primary Care Unavailable Baddour, Christian Attending Unavailable Yamil, Biju Referring Unavailable Yamil, Biju Primary Care Unavailable Tita Wick Attending Unavailable Yamil, Biju Referring Unavailable Baddour, Christian Attending Unavailable Yamil, Biju Primary Care Unavailable Yamil, Biju Referring Unavailable Baddour, Christian Attending Unavailable Yamil, Biju Primary Care Unavailable Yamil, Biju Referring Unavailable Baddour, Christian Attending Unavailable Yamil, Biju Referring Unavailable Yamil, Biju Primary Care Unavailable Frida Newell Attending Unavailable Nikolai Freeman Consulting Unavailable Nikolai Freeman Admitting Unavailable Frida Newell Attending Unavailable Yamil, Biju Primary Care Unavailable Frida Newell Consulting Unavailable Nikolai Freeman Attending Unavailable Pj Almanza Admitting Unavailable Pj Almanza Consulting Unavailable Danita Spaulding Attending Unavailable Yamil, Biju Primary Care Unavailable Danita Spaulding Consulting Unavailable Gilbert Hoang Attending Unavailable Gilbert Hoang Referring Unavailable Yamil, Biju Primary Care Unavailable Allergies Allergy Classification Reported Allergen(s) Allergy Type Date of Onset Reaction(s) Facility (20 sources) Gemtesa TABS; Translations: [Gemtesa TABS] Allergy to drug (finding) 03-20-2023 Unknown [facility] (20 sources) vibegron; Translations: [VIBEGRON] Allergy to substance 01-24-2022 [facility] Medications Current Medications Medication Drug Class(es) Dates Sig (Normalized) Sig (Original) aspirin 81 mg chewable tablet (20 sources) Platelet Aggregation Inhibitor, Nonsteroidal Anti-inflammatory Drug Start: 01-24-2022 End: 09-07-2023 take 1 tablet by mouth once daily Aspirin (Luis Alberto Chewable Aspirin) 81 mg tablet,chewable Active 81 mg PO DAILY January 24, 2022 1:00am heart health Start: 06-23-2021 take 1 tablet by efrain th once daily aspirin 81 mg EC tablet Take 1 tablet (81 mg) by mouth once daily. 06/23/2021 Active Start: 06-08-2021 End: 10-05-2021 take 1 tablet by mouth once daily aspirin 81 mg oral tablet, chewable ; 1 tab(s) orally once a day -.Meds to Beds Quantity: 30 Refills: 3 Ordered: 08-Jun-2021 Leandra Pollack Start: 08-Jun-2021 End: 05-Oct-2021 Generic Substitution Allowed Atropine 1 % drops (20 sources) Start: 07-23-2024 Atropine 1 % d rops Active 0 BUCCAL DAILY 15 July 23, 2024 4:38pm secretions Take 1 to 2 drops buccally daily Start: 07-23-2024 Atropine 1 % d rops Active 0 BUCCAL DAILY July 23, 2024 4:38pm Take 1 to 2 drops buccally daily Start: 07-23-2024 End: 07-23-2024 Atropine 1 % drops Discontin ued 0 BUCCAL DAILY 15 July 23, 2024 12:12pm July 23, 2024 4:39pm secretions Take 1 drop buccally daily Start: 07-23-2024 End: 07-23-2024 Atropine 1 % drops Discontin ued 0 BUCCAL DAILY July 23, 2024 12:12pm July 23, 2024 4:39pm Take 1 drop buccally daily Start: 07-23-2024 Atropine 1 % d rops Active 0 BUCCAL DAILY July 23, 2024 12:12pm Take 1 drop buccally daily Start: 03-18-2024 End: 07-23-2024 Atropine 1 % drops Discontin ued 0 BUCCAL DAILY 10 March 18, 2024 3:17pm July 23, 2024 12:19pm secretions Take 1 drop buccally daily Start: 03-18-2024 End: 07-23-2024 Atropine 1 % drops Discontin ued 0 BUCCAL DAILY March 18, 2024 3:17pm July 23, 2024 12:19pm Take 1 drop buccally daily Start: 03-18-2024 Atropine 1 % d rops Active 0 BUCCAL DAILY March 18, 2024 3:17pm Take 1 drop buccally daily Start: 03-18-2024 Atropine 1 % d rops Active 0 BUCCAL DAILY March 18, 2024 2:17pm Take 1 drop buccally daily Start: 10-01-2023 End: 03-18-2024 Atropine 1 % drops Discontin ued 0 BUCCAL DAILY 10 October 01, 2023 11:45am March 18, 2024 3:18pm secretions Take 1 to 2 drops buccally daily Start: 10-01-2023 End: 03-18-2024 Atropine 1 % drops Discontin ued 0 BUCCAL DAILY October 01, 2023 11:45am March 18, 2024 3:18pm Take 1 to 2 drops buccally daily Start: 10-01-2023 End: 03-18-2024 Atropine 1 % drops Discontin ued 0 BUCCAL DAILY October 01, 2023 10:45am March 18, 2024 2:18pm Take 1 to 2 drops buccally daily Start: 01-31-2023 End: 06-10-2023 take 1-2 drop(s) into the eye(s) once daily Atropine 1 % drops Discontinued 0 BUCCAL DAILY 10 January 31, 2023 12:53pm June 10, 2023 10:15am eyes Take 1 to 2 drops buccally daily Start: 01-31-2023 End: 06-10-2023 Atropine 1 % drops Discontin ued 0 BUCCAL DAILY January 31, 2023 12:53pm June 10, 2023 10:15am Take 1 to 2 drops buccally daily Start: 01-31-2023 End: 06-10-2023 Atropine 1 % drops Discontin ued 0 BUCCAL DAILY January 31, 2023 11:53am June 10, 2023 9:15am Take 1 to 2 drops buccally daily Start: 11-06-2022 End: 01-31-2023 Atropine 1 % drops Discontin ued 0 BUCCAL DAILY 10 November 06, 2022 1:11pm January 31, 2023 12:54pm Take 1 to 2 drops buccally daily Start: 11-06-2022 End: 01-31-2023 Atropine 1 % drops Discontin ued 0 BUCCAL DAILY November 06, 2022 1:11pm January 31, 2023 12:54pm Take 1 to 2 drops buccally daily Start: 11-06-2022 End: 01-31-2023 Atropine 1 % drops Discontin ued 0 BUCCAL DAILY November 06, 2022 12:11pm January 31, 2023 11:54am Take 1 to 2 drops buccally daily Start: 09-24-2022 End: 11-06-2022 Atropine 1 % drops Discontin ued 1 NMA BUCCAL DAILY 2 September 24, 2022 12:00am November 06, 2022 1:14pm Start: 09-24-2022 End: 11-06-2022 Atropine 1 % drops Discontin ued 1 NMA BUCCAL DAILY September 24, 2022 12:00am November 06, 2022 1:14pm Start: 09-24-2022 End: 11-06-2022 Atropine 1 % drops Discontin ued 1 NMA BUCCAL DAILY September 23, 2022 11:00pm November 06, 2022 12:14pm benzonatate 200 mg oral capsule (4 sources) Non-narcotic Antitussive Start: 01-13-2021 take 200 mg by mouth twice daily as needed Benzonatate Active 200 MG PO TWICE DAILY NEEDED January 13, 2021 1:00am Start: 01-10-2021 Benzonatate 20 0 MG Oral Capsule Quantity: 20 Refills: 0 Ordered: 10-Jan-2021 DO Start : 10-Jan-2021 Complete budesonide 0.5 mg/ml inhalation suspension (20 sources) Corticosteroid Start: 09-18-2023 End: 10-17-2023 take 1 mg by inhalation twice daily Budesonide 1 mg/2 mL suspension for nebulization Active 1 mg INHALATION TWICE A DAY 120 October 17, 2023 3:25pm Chronic obstructive pulmonary disease, unspecified breathing BUDESONIDE IN In english. Active docusate sodium 50 mg / sennosides, detention 8.6 mg oral tablet (1 source) Start: 06-08-2021 take 2 tablets by mouth twice daily sennosides-docusate 8.6 mg-50 mg oral tablet ; 2 [...] Check with your doctor before becoming . Comment on above: Check with your doct or before becoming . formoterol (1 source) beta2-Adrenergic Agonist FORMOTEROL FUMARATE IN Inhale 2 times daily. Active Formoterol Fumarate (Perforomist) 20 mcg/2 mL solution for nebulization (10 sources) Start: 04-15-2024 take 1 mL by inhalation twice daily Formoterol Fumarate (Perforomist) 20 mcg/2 mL solution for nebulization Active 2 mL INHALATION TWICE A DAY 120 3 April 15, 2024 1:00am Start: 04-15-2024 take 1 mL by inhalat ion twice daily Formoterol Fumarate (Perforomist) 20 mcg/2 mL solution for nebulization Active 2 mL INHALATION TWICE A DAY 120 April 15, 2024 1:00am Start: 04-15-2024 take 1 mL by inhalat ion twice daily Formoterol Fumarate (Perforomist) 20 mcg/2 mL solution for nebulization Active 2 mL INHALATION TWICE A DAY 120 April 15, 2024 12:00am furosemide 40 mg oral tablet (20 sources) Loop Diuretic Start: 11-02-2023 Furosemide (La six) 40 mg tablet Active 20 mg PO 1200 as needed for Leg swelling 0 30 0 November 02, 2023 10:00am Hold for SBP less than 100 mmHg Start: 09-03-2023 End: 09-07-2023 take 40 mg by mouth once daily 40 mg, Oral, DAILY, Fir st dose on Sat09/03/23 at 0900, Until Discontinued Start: 06-08-2021 take 0.5 tablet by m outh once daily Furosemide 40 MG Oral Tablet Take 1/2 tablet daily Quantity: 90 Refills: 3 Ordered: 08-Dec-2021 Nevin Rogers MD Start : 21-Apr-2022 Active Start: 06-08-2021 Furosemide 40 MG Oral Tablet Quantity: 30 Refills: 0 Ordered: 08-Jun-2021 DO Start : 08-Jun-2021 Active Start: 06-08-2021 End: 03-25-2024 Furosemide (Lasix) 40 mg tab let Discontinued 40 mg PO 1200 October 29, 2023 12:00am November 02, 2023 10:00am diuretic furOSEmide 20 MG tablet Take 1 tablet by mouth as needed. Active Comment on above: Avoid prolonged or e xcessive exposure to direct and/or artificial sunlight while taking this medication.It is very important that you take or use this exactly as directed. Do not skip doses or discontinue unless directed by your doctor.It may be advisable to drink a full glass orange juice or eat a banana daily while taking this medication. gabapentin 100 mg oral capsule (1 source) Anti-epileptic Agent Start: 05-29-19 take 1 capsule by mouth three times daily gabapentin 100 mg oral capsule ; 1 cap(s) orally 3 times a day Quantity: 0 Refills: 0 Ordered: 03-Jun-2021 Shobha Espitia Start: 27-May-2021 Status: Discontinued Generic Substitution Allowed 12 hr guaiFENesin 1200 mg extended release oral tablet (20 sources) Start: 05-28-19 take 1 tablet by mouth once daily, then take 1 tablet by mouth every twelve hours Guaifenesin (Mucinex) 1,200 mg tablet extended release 12hr Active 1200 mg PO .QD 30 11 May 27, 2024 12:00am Cough Cough, unspecified Start: 08-15-2023 End: 09-17-2023 take 1 tablet by mouth twice daily, then take 1 tablet by mouth every twelve hours Guaifenesin (Mucus Relief Er) 1,200 mg Tablet Extended Release 12hr Discontinued 1200 mg PO TWICE A DAY 14 7 0 August 15, 2023 12:00am September 17, 2023 8:56pm Start: 05-16-2023 End: 06-10-2023 take 1 tablet by mouth every twelve hours Guaifenesin 1,200 mg tablet extended release 12hr Discontinued 1200 mg PO Q12H 60 6 May 16, 2023 12:00am June 10, 2023 10:13am Start: 05-16-2023 End: 06-10-2023 take 1200 mg by mouth every twelve hours Guaifenesin Discontinued 1200 MG PO Q12H 60 May 16, 2023 12:00am June 10, 2023 10:13am GUAIFENESIN 1200 PO Take by mouth daily. Active Handicap placard (20 sources) Start: 10-01-[address] Active 0 .Route .MEDSUPPLY 1 0 October 01, 2022 12:00am Expiration: 10/01/2025 Start: 10-01-[address] Active 0 .Route .MEDSUPPLY 1 September 30, 2022 11:00pm Expiration: 10/01/2025 Start: 10-01-[address] Active 0 .Route .MEDSUPPLY 1 October 01, 2022 12:00am Expiration: 10/01/2025 3 ml icatibant 10 mg/ml prefilled syringe (1 source) Bradykinin B2 Receptor Antagonist Start: 01-18-2021 inject 30 mg by subcutaneous injection every six hours icatibant 10 mg/mL subcutaneous solution ; 30 milligram(s) subcutaneously every 6 hours maximum 3 doses (90mg)/24 hrs Quantity: 4 Refills: 0 Ordered: 18-Jan-2021 Giovanni Cantu Start: 18-Jan-2021 Status: Other Generic Substitution Allowed Comments: Check with your doctor before becoming .May cause drowsiness or dizziness.Obtain medical advice before taking any non-prescription drugs as some may affect the action of this medication.This drug may impair the ability to drive or operate machinery. Use care until you become familiar with its effects. Comment on above: Check with your doctor before becoming p regnant.May cause drowsiness or dizziness.Obtain medical advice before taking any non-prescription drugs as some may affect the action of this medication.This drug may impair the ability to drive or operate machinery. Use care until you become familiar with its effects. 2 ml lanadelumab-fly o 150 mg/ml injection (1 source) Start: 01-18-2021 inject 300 mg by subcutaneous injection every other week lanadelumab-flyo 300 mg/2 mL subcutaneous solution ; 300 milligram(s) subcutaneously every 2 weeks Quantity: 1 Refills: 0 Ordered: 18-Jan-2021 Giovanni Cantu Start: 18-Jan-2021 Status: Other Generic Substitution Allowed Comments: Check with your doctor before becoming .Keep in refrigerator. Do not freeze.Store this medication in the original package. Comment on above: Check with your doctor before becoming p regnant.Keep in refrigerator. Do not freeze.Store this medication in the original package. losartan potassium 25 mg oral tablet (1 source) Angiotensin 2 Receptor Shahid Start: 06-08-2021 End: 08-06-2021 take 1 tablet by mouth once daily losartan 25 mg oral tablet ; 1 tab(s) orally once a day -.Meds to Beds Quantity: 30 Refills: 1 Ordered: 08-Jun-2021 Leandra Pollack Start: 08-Jun-2021 End: 06-Aug-2021 Generic Substitution Allowed Comments: Do not take this drug if you are .It is very important that you take or use this exactly as directed. Do not skip doses or discontinue unless directed by your doctor.Some non-prescription drugs may aggravate your condition. Read all labels carefully. If a warning appears, check with your doctor before taking. Comment on above: Do not take this drug if you are pregnan t.It is very important that you take or use this exactly as directed. Do not skip doses or discontinue unless directed by your doctor.Some non-prescription drugs may aggravate your condition. Read all labels carefully. If a warning appears, check with your doctor before taking. meloxicam 15 mg oral tablet (1 source) Nonsteroidal Anti-inflammatory Drug take 1 tablet by mouth twice daily meloxicam 15 mg oral tablet ; 1 tab(s) orally 2 times a day Quantity: 0 Refills: 0 Ordered: 03-Jun-2021 Gene Lemus Status: Discontinued Generic Substitution Allowed nebulizer kits (10 sources) Start: 04-15-2024 nebulizer kits Active 0 .ROUTE .MEDSUPPLY 1 April 15, 2024 1:00am As directed Start: 04-15-2024 nebulizer kits Active 0 .ROUTE .MEDSUPPLY April 15, 2024 1:00am As directed Start: 04-15-2024 nebulizer kits Active 0 .ROUTE .MEDSUPPLY April 15, 2024 12:00am As directed nitrofurantoin, macrocrystals 100 mg oral capsule (2 sources) Nitrofuran Antibacterial Start: 10-17-2023 take 1 capsule by mouth once nitrofurantoin (Macrodantin) 100 mg capsule Indications: Recurrent UTI Take 1 capsule PO Q MWF 30 capsule 6 10/17/2023 Active Start: 10-10-2023 End: 10-17-2023 take 1 capsule by mouth twice daily nitrofurantoin (Macrodantin) 100 mg capsule Indications: Dysuria Take 1 capsule (100 mg) by mouth 2 times a day for 7 days. 14 capsule 10/10/2023 10/17/2023 Active nitrofurantoin, macrocrystals 25 mg / nitrofurantoin, monohydrate 75 mg oral capsule (10 sources) Nitrofuran Antibacterial Start: 10-21-2023 Nitrofurantoin Monohyd/M-Cryst 100 mg capsule Active 100 mg PO MOWEFR October 21, 2023 12:00am bladder nystatin 232619 unt/ml oral suspension (20 sources) Polyene Antifungal Start: 03-12-2023 nystatin (M ycostatin) 100,000 unit/mL suspension 03/12/2023 Active Start: 03-12-2023 End: 03-16-2023 Nystatin 100,000 unit/mL carito pension Discontinued 5 mL MUCOUS MEM THREE TIMES A DAY 250 1 March 12, 2023 1:00am March 16, 2023 3:35pm swish and swallow 5 cc three times per day for 10 days Start: 03-12-2023 End: 03-16-2023 Nystatin Discontinued 5 ML M UCOUS MEM THREE TIMES A DAY 250 March 12, 2023 1:00am March 16, 2023 3:35pm swish and swallow 5 cc three times per day for 10 days polyethylene glycol 3350 12859 mg powder for oral solution (1 source) Osmotic Laxative Start: 06-08-2021 polyethylene glycol 3350 oral powder for reconstitution ; 17 gram(s) orally 2 times a day Quantity: 0 Refills: 0 Ordered: 08-Jun-2021 Leandra Pollack Start: 08-Jun-2021 Generic Substitution Allowed potassium chloride 20 meq extended release oral tablet (20 sources) Start: 10-15-2023 Klor-Con M20 2 0 mEq ER tablet 10/15/2023 Active Start: 06-18-2023 End: 04-07-2024 take 1 tablet by mouth once daily Potassium Chloride 20 mEq tablet extended release Discontinued 20 meq PO DAILY 90 3 July 10, 2023 11:16am April 07, 2024 9:41am supplement take 1 dose by mouth once daily potassium chloride 20 MEQ Pack Take 1 packet by mouth daily. Active predniSONE 10 mg oral tablet (20 sources) Start: 07-15-2024 End: 07-15-2024 Prednisone 10 mg tablet Acti ve 10 mg PO daily 30 July 15, 2024 2:33pm take 4 tabs for three days, then 3 tabs for three days, then 2 tabs for three days, then 1 tab for 3 days Start: 04-15-2024 End: 05-27-2024 Prednisone 10 mg tablet Discontinued 10 mg PO daily 30 April 15, 2024 1:00am May 27, 2024 1:49pm take 4 tabs for three days, then 3 tabs for three days, then 2 tabs for three days, then 1 tab for 3 days Start: 03-08-2024 End: 04-01-2024 take 2 tablets by mouth once daily Prednisone 20 mg tablet Discontinued 40 mg PO DAILY 10 5 March 08, 2024 1:00am April 01, 2024 3:06pm Start: 08-15-2023 End: 09-17-2023 take 2 tablets by mouth once daily Prednisone 20 mg tablet Discontinued 40 mg PO DAILY 10 5 0 August 15, 2023 12:00am September 17, 2023 8:57pm Start: 07-23-2023 End: 08-14-2023 take 1 tablet by mouth once daily Prednisone 50 mg tablet Discontinued 50 mg PO DAILY 5 July 23, 2023 12:00am August 14, 2023 8:32am Start: 05-03-2023 End: 05-16-2023 take 1 tablet by mouth once daily Prednisone 50 mg tablet Discontinued 50 mg PO DAILY 5 May 03, 2023 12:00am May 16, 2023 11:19am Start: 02-15-2023 End: 03-12-2023 Prednisone 10 mg tablet Discontinued 10 mg PO daily 30 February 15, 2023 1:00am March 12, 2023 11:16am take 4 tabs for three days, then 3 tabs for three days, then 2 tabs for three days, then 1 tab for 3 days Start: 11-16-2022 End: 12-17-2022 Prednisone 10 mg tablet Discontinued 10 mg PO daily November 16, 2022 12:00am December 17, 2022 9:49am take 4 tabs for three days, then 3 tabs for three days, then 2 tabs for three days, then 1 tab for 3 days Start: 01-24-2022 End: 05-17-2022 take 2 tablets by mouth once daily Prednisone 20 mg tablet Discontinued 40 mg PO DAILY January 24, 2022 1:00am May 17, 2022 10:17am Start: 01-24-2022 End: 05-17-2022 take 40 mg by mouth once daily Prednisone Discontinued 40 MG PO DAILY January 24, 2022 1:00am May 17, 2022 10:17am Start: 03-22-2021 take 3 tablets by mo uth once daily predniSONE 5 MG Oral Tablet TAKE 3 TABLETS DAILY Quantity: 90 Refills: 1 Ordered: 22-Mar-2021 Macario Bond DO Start : 22-Mar-2021 Active Please DC dose of 20 mg and will do 15 mg instead Start: 03-14-2021 End: 05-12-2021 take 1 tablet by mouth once daily at mealtime predniSONE 20 mg oral tablet ; 1 tab(s) orally once a day Quantity: 30 Refills: 1 Ordered: 14-Mar-2021 Giovanni Cantu Start: 14-Mar-2021 End: 12-May-2021 Status: Other Generic Substitution Allowed Comments: It is very important that you take or use this exactly as directed. Do not skip doses or discontinue unless directed by your doctor.Obtain medical advice before taking any non-prescription drugs as some may affect the action of this medication.Take with food or milk. Start: 01-04-2021 take 15 mg by mouth once daily Prednisone Active 15 MG PO DAILY January 04, 2021 1:00am Start: 12-28-2020 predniSONE 5 M G Oral Tablet Quantity: 84 Refills: 0 Ordered: 28-Dec-2020 DO Start : 28-Dec-2020 Complete Start: 11-23-2020 End: 05-02-2021 predniSONE 20 MG Oral Tablet Quantity: 30 Refills: 0 Ordered: 23-Nov-2020 DO Start : 23-Nov-2020 End : 02-May-2021 Complete Start: 11-23-2020 End: 01-04-2021 take 1 tablet by mouth once daily Prednisone 20 mg tablet Discontinued 20 mg PO DAILY 30 December 13, 2020 3:36pm January 04, 2021 10:17am Start: 07-29-2020 End: 11-02-2020 take 2 tablets by mouth once daily Prednisone 20 mg tablet Discontinued 40 mg PO DAILY 8 July 29, 2020 12:00am November 02, 2020 2:44pm Start: 07-29-2020 End: 11-02-2020 take 40 mg by mouth once daily Prednisone Discontinued 40 MG PO DAILY July 29, 2020 12:00am November 02, 2020 2:44pm take 1 tablet by efrain th once daily predniSONE 2.5 mg oral tablet ; 1 tab(s) orally once a day Quantity: 0 Refills: 0 Ordered: 17-May-2021 Paula Jones Status: Other Generic Substitution Allowed Comment on above: It is very important that you take or use this exactly as directed. Do not skip doses or discontinue unless directed by your doctor.Obtain medical advice before taking any non-prescription drugs as some may affect the action of this medication.Take with food or milk. Respiratory Therapy Supplies [facility] [place] (4 sources) Start: 09-20-2023 Respiratory Therapy Supplies [facility] [place] Pt has size 6 shiley cuffless trach. Please supply pt with 60 size [id number] inner cannulas per month. 60 Each 09/20/2023 Active revefenacin 0.0583 mg/ml inhalation solution (11 sources) Start: 04-15-2024 Revefenacin (Yupelri) 175 mcg/3 mL solution for nebulization Active 175 ug INHALATION daily 90 April 15, 2024 1:00am Revefenacin (Yup elri) 175 MCG/3ML Solution Inhale daily. Active rOPINIRole 1 mg oral tablet (13 sources) Nonergot Dopamine Agonist Start: 07-23-2024 take 1 tablet by mouth three times daily Ropinirole 1 mg tablet Active 1 mg PO THREE TIMES A DAY 90 July 23, 2024 12:00am Start: 05-26-2024 End: 07-23-2024 take 1 tablet by mouth three times daily Ropinirole 0.5 mg tablet Discontinued 0.5 mg PO THREE TIMES A DAY 90 3 May 26, 2024 12:00am July 23, 2024 12:17pm tamsulosin hydrochloride 0.4 mg oral capsule (20 sources) alpha-Adrenergic Shahid Start: 09-20-2023 tamsu losin (Flomax) 0.4 mg 24 hr capsule 09/20/2023 Active Start: 11-06-2022 take 2 capsules by m outh at bedtime Tamsulosin HCl - 0.4 MG Oral Capsule TAKE 2 CAPSULE Bedtime Quantity: 14 Refills: 0 Ordered: 06-Nov-2022 Cinthia Trammell II, MD Start : 06-Nov-2022 Active Start: 03-01-2021 End: 08-27-2023 take 1 capsule by mouth twice daily tamsulosin (Flomax) 0.4 mg 24 hr capsule Indications: Benign prostatic hyperplasia with urinary obstruction and other lower urinary tract symptoms Take 1 capsule (0.4 mg) by mouth 2 times a day. 180 capsule 3 05/29/2023 08/27/2023 Active Start: 11-02-2020 End: 03-25-2024 take 1 capsule by mouth once daily Tamsulosin 0.4 mg capsule Active 0.4 mg PO DAILY May 17, 2022 10:16am prostate Start: 09-20-2020 Tamsulosin HCl - 0.4 MG Oral Capsule Quantity: 30 Refills: 0 Ordered: 05-Dec-2020 DO Start : 20-Sep-2020 Active Completed/Discontinued Medications Medication Drug Class(es) Dates Sig (Normalized) Sig (Original) Acetaminophen (2 sources) Start: 09-02-2023 End: 09-07-2023 take 1 tablet by mouth every four hours as needed Acetaminophen (TYLENOL) tablet 650 mg Start: 06-05-2021 take 2 tablets by mo uth every six hours as needed acetaminophen 325 mg oral tablet ; 2 tab(s) orally every 6 hours, As needed, Pain - Mod (4-6) Quantity: 0 Refills: 0 Ordered: 05-Jun-2021 Gene Lemus Start: 05-Jun-2021 Generic Substitution Allowed [id number] 200 actuat albuter ol 0.09 mg/actuat metered dose inhaler (20 sources) beta2-Adrenergic Agonist Start: 09-02-2023 End: 09-07-2023 Start: 06-10-2023 End: 10-17-2023 Albuterol Sulfate 90 mcg/act uation HFA aerosol inhaler Discontinued 1 NMA INHALATION Q8H as needed for shortness of breath or wheezing June 10, 2023 10:12am October 17, 2023 2:58pm Start: 06-10-2023 take 1 puff(s) by in halation every eight hours Albuterol Sulfate Active 2 PUFF INHALATION Q8H June 10, 2023 10:12am Start: 01-26-2023 take 2.5 mg by inhal ation every eight hours as needed albuterol 2.5 mg /3 mL (0.083 %) nebulizer solution Take 3 mL (2.5 mg) by nebulization every 8 hours if needed. 01/26/2023 Active Start: 05-17-2022 End: 03-16-2023 take 2.5 mg by inhalation every four hours as needed Albuterol Sulfate 2.5 mg /3 mL (0.083 %) solution for nebulization Discontinued 2.5 mg INHALATION Q4H as needed May 17, 2022 12:00am March 16, 2023 3:35pm Start: 01-08-2022 Albuterol Sulf ate (2.5 MG/3ML) 0.083% Inhalation Nebulization Solution Quantity: 0 Refills: 0 Ordered: 08-Jan-2022 DO Start : 08-Jan-2022 Active Start: 06-05-2021 End: 09-02-2021 albuterol 90 mcg/inh inhalat ion aerosol ; inhaled 4 times a day Quantity: 1 Refills: 2 Ordered: 05-Jun-2021 Gene Lemus Start: 05-Jun-2021 End: 02-Sep-2021 Generic Substitution Allowed Start: 03-22-2021 take 2 puff(s) by in halation four times daily as needed Albuterol Sulfate HFA 108 (90 Base) MCG/ACT Inhalation Aerosol Solution INHALE 2 PUFFS 4 times daily PRN Quantity: 1 Refills: 11 Ordered: 22-Mar-2021 Macario Bond DO Start : 22-Mar-2021 Active Start: 03-22-2021 take 2 puff(s) by in halation four times daily as needed Albuterol Sulfate HFA 108 (90 Base) MCG/ACT Inhalation Aerosol Solution INHALE 2 PUFFS 4 times daily PRN Quantity: 1 Refills: 11 Ordered: 22-Mar-2021 Macario Bond DO Start : 22-Mar-2021 Active Start: 11-23-2020 Albuterol Sulf ate HFA 108 (90 Base) MCG/ACT Inhalation Aerosol Solution Quantity: 6 Refills: 0 Ordered: 23-Nov-2020 DO Start : 23-Nov-2020 Active Start: 11-23-2020 Albuterol Sulf ate HFA 108 (90 Base) MCG/ACT Inhalation Aerosol Solution Quantity: 6 Refills: 0 Ordered: 23-Nov-2020 DO Start : 23-Nov-2020 Active Start: 11-23-2020 End: 06-10-2023 Albuterol Sulfate 90 mcg/act uation HFA aerosol inhaler Discontinued 2 NMA INHALATION EVERY 6 HOURS as needed for shortness of breath or wheezing 6.7 0 November 23, 2020 12:00am June 10, 2023 10:15am Start: 11-23-2020 End: 06-10-2023 take 1 puff(s) by inhalation every six hours Albuterol Sulfate Discontinued 2 PUFF INHALATION EVERY 6 HOURS 6.7 November 23, 2020 12:00am June 10, 2023 10:15am End: 03-25-2024 take 1 puff(s) by inhalation every eight hours as needed Albuterol 108 (90 Base) MCG/ACT Aero Soln inhaler Inhale 1 puff every 8 hours as needed for Shortness of Breath. 03/25/2024 Discontinued albuterol 0.833 mg/ml / ipratropium bromide 0.167 mg/ml inhalation solution (20 sources) Anticholinergic, beta2-Adrenergic Agonist Start: 09-02-2023 End: 09-07-2023 take 3 mL by inhalation every four hours as needed Start: 05-16-2023 End: 05-20-2024 take 1 mL by inhalation every four hours as needed for wheezing Ipratropium-Albuterol 0.5 mg-3 mg(2.5 mg base)/3 mL solution for nebulization Discontinued 3 mL INHALATION EVERY 4 HOURS NEEDED as needed for SOB &/OR WHEEZING 360 11 September 18, 2023 12:00am May 20, 2024 3:08pm Chronic obstructive pulmonary disease Chronic obstructive pulmonary disease, unspecified Start: 05-16-2023 End: 05-17-2023 take 1 mL by inhalation every four hours as needed Ipratropium-Albuterol Active 3 ML INHALATION EVERY 4 HOURS NEEDED May 17, 2023 2:57pm aluminum hydroxide 50.8 mg/ml / magnesium carbonate 47.5 mg/ml oral suspension (18 sources) Start: 03-07-2021 take 10 mL by mouth at bedtime Gaviscon Extra Strength 254-237.5 MG/5ML Oral Suspension Take 10ml after meals and at bedtime. Quantity: 1 Refills: 4 Ordered: 07-Mar-2021 Sudheer Mcfarlane MD Start : 07-Mar-2021 Active amoxicillin 875 mg / clavulanate 125 mg oral tablet (20 sources) Penicillin-class Antibacterial Start: 11-16-2022 End: 12-17-2022 Amoxicillin-Pot Clavulanate 875-125 mg tablet Discontinued 1 {tbl} PO TWICE A DAY 10 November 16, 2022 12:00am December 17, 2022 9:50am Start: 11-16-2022 End: 12-17-2022 take 1 tablet by mouth twice daily Amoxicillin-Pot Clavulanate Discontinued 1 TABLET PO TWICE A DAY November 16, 2022 12:00am December 17, 2022 9:50am atorvastatin 80 mg oral tablet (2 sources) HMG-CoA Reductase Inhibitor Start: 06-08-2021 Atorvastatin Calcium 80 MG Oral Tablet Quantity: 30 Refills: 0 Ordered: 08-Jun-2021 DO Start : 08-Jun-2021 Active Start: 06-08-2021 End: 08-06-2021 take 1 tablet by mouth once daily atorvastatin 80 mg oral tablet ; 1 tab(s) orally once a day -.Meds to Beds Quantity: 30 Refills: 1 Ordered: 08-Jun-2021 Leandra Pollack Start: 08-Jun-2021 End: 06-Aug-2021 Generic Substitution Allowed Atropine (20 sources) Anticholinergic, Cholinergic Muscarinic Antagonist Start: 01-31-2023 End: 06-10-2023 Atropine Discontinued 0 BUCCAL DAILY January 31, 2023 12:53pm June 10, 2023 10:15am Take 1 to 2 drops buccally daily Start: 01-31-2023 Atropine Activ e 0 BUCCAL DAILY January 31, 2023 12:53pm Take 1 to 2 drops buccally daily Start: 01-31-2023 Atropine Activ e 0 BUCCAL DAILY January 31, 2023 11:53am Take 1 to 2 drops buccally daily Start: 11-06-2022 End: 01-31-2023 Atropine Discontinued 0 BUCC AL DAILY November 06, 2022 1:11pm January 31, 2023 12:54pm Take 1 to 2 drops buccally daily Start: 11-06-2022 End: 01-31-2023 Atropine Discontinued 0 BUCC AL DAILY November 06, 2022 12:11pm January 31, 2023 11:54am Take 1 to 2 drops buccally daily Start: 11-06-2022 Atropine Activ e 0 BUCCAL DAILY November 06, 2022 1:11pm Take 1 to 2 drops buccally daily Start: 09-24-2022 End: 11-06-2022 Atropine Discontinued 1 DRP BUCCAL DAILY September 23, 2022 11:00pm November 06, 2022 12:14pm Start: 09-24-2022 End: 11-06-2022 Atropine Discontinued 1 DRP BUCCAL DAILY September 24, 2022 12:00am November 06, 2022 1:14pm Start: 09-24-2022 Atropine Activ e 1 DRP BUCCAL DAILY September 24, 2022 12:00am ATROPINE SULFATE PO Take by mouth. Active azithromycin 500 mg oral tablet (20 sources) Macrolide Antimicrobial Start: 07-23-2023 End: 08-14-2023 take 1 tablet by mouth once daily Azithromycin 500 mg tablet Discontinued 500 mg PO DAILY 5 5 0 July 23, 2023 12:00am August 14, 2023 8:33am Start: 02-15-2023 End: 03-12-2023 take 2-5 tablets by mouth once daily Azithromycin 250 mg tablet Discontinued 0 PO .COMPLEX 6 0 February 15, 2023 1:00am March 12, 2023 11:16am take 500 mg today (day 1), then 250 mg for 4 days (days 2-5) PO Bilateral knee-high compression stockings (10-20) (20 sources) Start: 07-02-2022 End: 06-10-2023 Bilateral knee-high compress ion stockings (10-20) Discontinued 0 .Route .MEDSUPPLY 2 0 July 02, 2022 4:30pm June 10, 2023 10:14am Orthostatic hypotension Orthostatic hypotension Orthostatic hypotension (I95.1); lightheadedness As directed Start: 07-02-2022 End: 06-10-2023 Bilateral knee-high compress ion stockings (10-20) Discontinued 0 .Route .MEDSUPPLY 2 July 02, 2022 3:30pm June 10, 2023 9:14am As directed Start: 07-02-2022 End: 06-10-2023 Bilateral knee-high compress ion stockings (10-20) Discontinued 0 .Route .MEDSUPPLY 2 July 02, 2022 4:30pm June 10, 2023 10:14am As directed Start: 07-02-2022 Bilateral knee -high compression stockings (10-20) Active 0 .Route .MEDSUPPLY 2 July 02, 2022 3:30pm As directed Start: 07-02-2022 Bilateral knee -high compression stockings (10-20) Active 0 .Route .MEDSUPPLY 2 July 02, 2022 4:30pm As directed Start: 07-02-2022 End: 07-02-2022 Bilateral knee-high compress ion stockings (10-20) Discontinued 0 .Route .MEDSUPPLY 2 0 July 02, 2022 12:00am July 02, 2022 4:31pm Orthostatic hypotension Orthostatic hypotension Orthostatic hypotension (I95.1); lightheadedness As directed Start: 07-02-2022 End: 07-02-2022 Bilateral knee-high compress ion stockings (10-20) Discontinued 0 .Route .MEDSUPPLY 2 July 01, 2022 11:00pm July 02, 2022 3:31pm As directed Start: 07-02-2022 End: 07-02-2022 Bilateral knee-high compress ion stockings (10-20) Discontinued 0 .Route .MEDSUPPLY 2 July 02, 2022 12:00am July 02, 2022 4:31pm As directed Budesonide-Formoterol (20 sources) Corticosteroid, beta2-Adrenergic Agonist Start: 06-14-2023 End: 08-15-2023 Budesonide-Formoterol (Symbicort) 160-4.5 mcg/actuation HFA aerosol inhaler Discontinued 2 NMA INHALATION TWICE A DAY 1 3 June 14, 2023 11:41am August 15, 2023 10:28am as directed administer with spacer, rinse mouth after each use Start: 06-14-2023 End: 08-15-2023 Budesonide-Formoterol (Symbi gavino) 160-4.5 mcg/actuation HFA aerosol inhaler Discontinued 2 NMA INHALATION TWICE A DAY 1 June 14, 2023 11:41am August 15, 2023 10:28am administer with spacer, rinse mouth after each use Start: 06-14-2023 End: 08-15-2023 Budesonide-Formoterol (Symbi gavino) 160-4.5 mcg/actuation HFA aerosol inhaler Discontinued 2 NMA INHALATION TWICE A DAY 1 June 14, 2023 10:41am August 15, 2023 9:28am administer with spacer, rinse mouth after each use Start: 06-14-2023 Budesonide-For moterol (Symbicort) 160-4.5 mcg/actuation HFA aerosol inhaler Active 2 INH INHALATION TWICE A DAY 1 June 14, 2023 11:41am administer with spacer, rinse mouth after each use Start: 03-28-2023 End: 06-14-2023 Budesonide-Formoterol (Symbi gavino) 160-4.5 mcg/actuation HFA aerosol inhaler Discontinued 2 NMA INHALATION TWICE A DAY 3 3 March 28, 2023 9:12am June 14, 2023 11:41am as directed administer with spacer, rinse mouth after each use Start: 03-28-2023 End: 06-14-2023 Budesonide-Formoterol (Symbi gavino) 160-4.5 mcg/actuation HFA aerosol inhaler Discontinued 2 NMA INHALATION TWICE A DAY 3 March 28, 2023 9:12am June 14, 2023 11:41am administer with spacer, rinse mouth after each use Start: 03-28-2023 End: 06-14-2023 Budesonide-Formoterol (Symbi gavino) 160-4.5 mcg/actuation HFA aerosol inhaler Discontinued 2 NMA INHALATION TWICE A DAY 3 March 28, 2023 8:12am June 14, 2023 10:41am administer with spacer, rinse mouth after each use Start: 03-28-2023 End: 06-14-2023 Budesonide-Formoterol (Symbi gavino) 160-4.5 mcg/actuation HFA aerosol inhaler Discontinued 2 INH INHALATION TWICE A DAY 3 March 28, 2023 9:12am June 14, 2023 11:41am administer with spacer, rinse mouth after each use Start: 03-28-2023 Budesonide-For moterol (Symbicort) 160-4.5 mcg/actuation HFA aerosol inhaler Active 2 INH INHALATION TWICE A DAY 3 March 28, 2023 9:12am administer with spacer, rinse mouth after each use Start: 03-28-2023 Budesonide-For moterol (Symbicort) 160-4.5 mcg/actuation HFA aerosol inhaler Active 2 INH INHALATION TWICE A DAY 3 March 28, 2023 8:12am administer with spacer, rinse mouth after each use Start: 02-12-2023 End: 03-28-2023 Budesonide-Formoterol (Symbi gavino) 160-4.5 mcg/actuation HFA aerosol inhaler Discontinued 2 NMA INHALATION TWICE A DAY 1 0 February 12, 2023 3:59pm March 28, 2023 9:13am as directed administer with spacer, rinse mouth after each use Start: 02-12-2023 End: 03-28-2023 Budesonide-Formoterol (Symbi gavino) 160-4.5 mcg/actuation HFA aerosol inhaler Discontinued 2 NMA INHALATION TWICE A DAY 1 February 12, 2023 3:59pm March 28, 2023 9:13am administer with spacer, rinse mouth after each use Start: 02-12-2023 End: 03-28-2023 Budesonide-Formoterol (Symbi gavino) 160-4.5 mcg/actuation HFA aerosol inhaler Discontinued 2 NMA INHALATION TWICE A DAY 1 February 12, 2023 2:59pm March 28, 2023 8:13am administer with spacer, rinse mouth after each use Start: 02-12-2023 End: 03-28-2023 take 1 puff(s) by mouth twice daily Budesonide-Formoterol (Symbicort) 160-4.5 mcg/actuation HFA aerosol inhaler Discontinued 2 PUFF INHALATION TWICE A DAY 1 February 12, 2023 3:59pm March 28, 2023 9:13am administer with spacer, rinse mouth after each use Start: 02-12-2023 End: 03-28-2023 take 1 puff(s) by mouth twice daily Budesonide-Formoterol (Symbicort) 160-4.5 mcg/actuation HFA aerosol inhaler Discontinued 2 PUFF INHALATION TWICE A DAY 1 February 12, 2023 2:59pm March 28, 2023 8:13am administer with spacer, rinse mouth after each use Start: 02-12-2023 take 1 puff(s) by mo uth twice daily Budesonide-Formoterol (Symbicort) 160-4.5 mcg/actuation HFA aerosol inhaler Active 2 PUFF INHALATION TWICE A DAY 1 February 12, 2023 2:59pm administer with spacer, rinse mouth after each use Start: 11-16-2022 End: 02-12-2023 Budesonide-Formoterol (Symbi gavino) 160-4.5 mcg/actuation HFA aerosol inhaler Discontinued 2 NMA INHALATION TWICE A DAY 02 20November 16, 2022 12:00am February 12, 2023 3:59pm administer with spacer, rinse mouth after each use Start: 11-16-2022 End: 02-12-2023 Budesonide-Formoterol (Symbi gavino) 160-4.5 mcg/actuation HFA aerosol inhaler Discontinued 2 NMA INHALATION TWICE A DAY 1 November 16, 2022 12:00am February 12, 2023 3:59pm administer with spacer, rinse mouth after each use Start: 11-16-2022 End: 02-12-2023 Budesonide-Formoterol (Symbi gavino) 160-4.5 mcg/actuation HFA aerosol inhaler Discontinued 2 NMA INHALATION TWICE A DAY November 15, 2022 11:00pm February 12, 2023 2:59pm administer with spacer, rinse mouth after each use Start: 11-16-2022 End: 02-12-2023 take 1 puff(s) by mouth twice daily Budesonide-Formoterol (Symbicort) 160-4.5 mcg/actuation HFA aerosol inhaler Discontinued 2 PUFF INHALATION TWICE A DAY 1 November 16, 2022 12:00am February 12, 2023 3:59pm administer with spacer, rinse mouth after each use Start: 11-16-2022 End: 02-12-2023 take 1 puff(s) by mouth twice daily Budesonide-Formoterol (Symbicort) 160-4.5 mcg/actuation HFA aerosol inhaler Discontinued 2 PUFF INHALATION TWICE A DAY 1 November 15, 2022 11:00pm February 12, 2023 2:59pm administer with spacer, rinse mouth after each use Start: 11-16-2022 take 1 puff(s) by mo uth twice daily Budesonide-Formoterol (Symbicort) 160-4.5 mcg/actuation HFA aerosol inhaler Active 2 PUFF INHALATION TWICE A DAY November 15, 2022 11:00pm administer with spacer, rinse mouth after each use Start: 11-16-2022 take 1 puff(s) by mo uth twice daily Budesonide-Formoterol (Symbicort) 160-4.5 mcg/actuation HFA aerosol inhaler Active 2 PUFF INHALATION TWICE A DAY November 16, 2022 12:00am administer with spacer, rinse mouth after each use Start: 05-17-2022 End: 07-03-2022 Budesonide-Formoterol (Symbi gavino) 80-4.5 mcg/actuation HFA aerosol inhaler Discontinued 2 NMA INHALATION TWICE A DAY May 17, 2022 12:00am July 03, 2022 8:45am Start: 05-17-2022 End: 07-03-2022 Budesonide-Formoterol (Symbi gavino) 80-4.5 mcg/actuation HFA aerosol inhaler Discontinued 2 NMA INHALATION TWICE A DAY May 16, 2022 11:00pm July 03, 2022 7:45am Start: 05-17-2022 End: 07-03-2022 take 1 puff(s) by inhalation twice daily Budesonide-Formoterol (Symbicort) 80-4.5 mcg/actuation HFA aerosol inhaler Discontinued 2 PUFF INHALATION TWICE A DAY May 16, 2022 11:00pm July 03, 2022 7:45am Start: 05-17-2022 End: 07-03-2022 take 1 puff(s) by inhalation twice daily Budesonide-Formoterol (Symbicort) 80-4.5 mcg/actuation HFA aerosol inhaler Discontinued 2 PUFF INHALATION TWICE A DAY May 17, 2022 12:00am July 03, 2022 8:45am Start: 05-17-2022 take 1 puff(s) by in halation twice daily Budesonide-Formoterol (Symbicort) 80-4.5 mcg/actuation HFA aerosol inhaler Active 2 PUFF INHALATION TWICE A DAY May 17, 2022 12:00am Start: 01-08-2022 take 2 puff(s) by in halation twice daily Symbicort 80-4.5 mcg/actuation inhaler Inhale 2 puffs 2 times a day. 03/27/2022 Active End: 09-03-2023 take 2 puff(s) by inhalation every twelve hours budesonide-formoterol 160-4.5 mcg/puff Aerosol inhaler Inhale 2 puffs every 12 hours. 09/03/2023 Discontinued 120 actuat budesonide 0.16 mg/actuat / formoterol fumarate 0.0048 mg/actuat / glycopyrrolate 0.009 mg/actuat metered dose inhaler (16 sources) Corticosteroid, beta2-Adrenergic Agonist Start: 09-03-2023 End: 06-24-2024 take 2 puff(s) by inhalation twice daily 2 puff, Inhalation, 2 TIMES DAILY, First dose on Sat09/03/23 at 1800, Until Discontinued Start: 07-09-2023 End: 09-18-2023 Duqiykaawx-Mufrenhl-Bfvmnvwn ol (Breztri Aerosphere) 160-9-4.8 mcg/actuation HFA aerosol inhaler Discontinued 2 NMA INHALATION TWICE A DAY 10.7 3 July 09, 2023 12:00am September 18, 2023 12:55pm breathing Start: 07-09-2023 End: 09-18-2023 Widktkcyav-Fhckftox-Gxbrgekb ol (Breztri Aerosphere) 160-9-4.8 mcg/actuation HFA aerosol inhaler Discontinued 2 NMA INHALATION TWICE A DAY 10.7 July 09, 2023 12:00am September 18, 2023 12:55pm Start: 07-09-2023 End: 09-18-2023 Pznlsbnukk-Lyyxlanx-Xhfpicri ol (Breztri Aerosphere) 160-9-4.8 mcg/actuation HFA aerosol inhaler Discontinued 2 NMA INHALATION TWICE A DAY 10.July 08, 2023 11:00pm September 18, 2023 11:55am calcium chloride 0.0014 meq/ml / potassium chloride 0.004 meq/ml / sodium chloride 0.103 meq/ml / sodium lactate 0.028 meq/ml injectable solution (1 source) Start: 09-02-2023 End: 09-02-2023 Intravenous, at 50 mL/hr, CONTINUOUS, Starting on Sat09/02/23 at 1345, Until Sat09/02/23 at 1722, Pre-op/Pre-Proc carbidopa 25 mg / levodopa 100 mg oral tablet (20 sources) Aromatic Amino Acid Decarboxylation Inhibitor, Aromatic Amino Acid Start: 01-21-2023 carbidopa-levodopa (Sinemet) 25-100 mg tablet 01/21/2023 Active Start: 10-16-2022 End: 07-23-2024 Carbidopa-Levodopa 25-100 mg tablet Discontinued 2 {tbl} PO THREE TIMES A DAY 540 1 November 13, 2022 4:53pm January 31, 2023 12:51pm Start: 10-16-2022 End: 01-31-2023 take 2 tablets by mouth three times daily Carbidopa-Levodopa Discontinued 2 TABLET PO THREE TIMES A DAY 540 November 13, 2022 4:53pm January 31, 2023 12:51pm Start: 06-06-2022 End: 10-16-2022 take 1 tablet by mouth once daily, then take 1 tablet by mouth twice daily, then take 1 tablet by mouth three times daily Carbidopa-Levodopa 25-100 mg tablet Discontinued 1 {tbl} PO .COMPLEX 90 5 June 06, 2022 12:00am October 16, 2022 3:13pm 1 Tab PO daily for one week then 1 tab BID for one week then 1 tab TID thereafter Start: 06-06-2022 End: 10-16-2022 take 1 tablet by mouth once daily, then take 1 tablet by mouth twice daily, then take 1 tablet by mouth three times daily Carbidopa-Levodopa Discontinued 1 TABLET PO .COMPLEX 90 June 06, 2022 12:00am October 16, 2022 3:13pm 1 Tab PO daily for one week then 1 tab BID for one week then 1 tab TID thereafter cephalexin 250 mg oral capsule (5 sources) Cephalosporin Antibacterial Start: 03-29-2021 End: 05-02-2021 take 1 capsule by mouth twice daily Cephalexin 250 MG Oral Capsule Take 1 capsule twice daily Quantity: 6 Refills: 0 Ordered: 29-Mar-2021 Cinthia Trammell II, MD Start : 29-Mar-2021 End : 02-May-2021 Complete ciprofloxacin 500 mg oral tablet (20 sources) Quinolone Antimicrobial Start: 10-23-2023 End: 11-02-2023 take 1 tablet by mouth twice daily Ciprofloxacin Hcl 500 mg tablet Discontinued 500 mg PO TWICE A DAY October 30, 2023 12:00am November 02, 2023 9:58am ciprofloxacin 3 mg/ml / dexamethasone 1 mg/ml otic suspension (1 source) Corticosteroid, Quinolone Antimicrobial Start: 09-05-2023 End: 09-07-2023 4 drop, Tracheal Tube, 2 TIMES DAILY, First dose on Sat09/05/23 at 0900, Until Discontinued, Shake well prior to use. For administration in the EAR or TRACHEAL TUBE only - refer to ordered route. clopidogrel 75 mg oral tablet (20 sources) [id number] Platelet Inhibitor Start: 01-24-2022 End: 04-06-2024 take 1 tablet by mouth once daily Clopidogrel 75 mg tablet Discontinued 75 mg PO DAILY 90 3 October 10, 2023 1:16pm April 06, 2024 5:33pm anit platelet Start: 06-06-2021 Clopidogrel Bi sulfate 75 MG Oral Tablet Quantity: 30 Refills: 0 Ordered: 06-Jun-2021 DO Start : 06-Jun-2021 Active Start: 06-06-2021 End: 12-02-2021 take 75 mg by mouth once daily Clopidogrel Active 75 M G PO DAILY January 24, 2022 1:00am Comment on above: Do not take aspirin or aspirin containing products without knowledge and consent of your physician. clotrimazole 10 mg oral lozenge (10 sources) Azole Antifungal Start: End: Clotrimazole 10 MG Mouth/Throat Marissa ALLOW 1 TO DISSOLVE SLOWLY IN MOUTH 5 TIMES DAILY DIRECTED. Quantity: 70 Refills: 0 Ordered: 07-Mar-2021 Sudheer Mcfarlane MD Start : 07-Mar-2021 End : 02-May-2021 Complete dexamethasone 4 mg oral tablet (20 sources) Corticosteroid Start: End: take 6 mg by mouth once daily Dexamethasone 4 mg tablet Discontinued 6 mg PO DAILY October 30, 2023 12:00am November 02, 2023 9:58am covid econazole nitrate 10 mg/ml topical cream (1 source) Azole Antifungal Start: Econazole Nitrate 1 % External Cream Quantity: 30 Refills: 0 Ordered: 17-Jan-2022 DO Start : 17-Jan-2022 Complete 0.4 ml enoxaparin sodium 100 mg/ml prefilled syringe (1 source) Low Molecular Weight Heparin Start: End: inject 40 mg by subcutaneous injection every twenty-four hours 40 mg, Subcutaneous, EVERY 24 HOURS, First dose on Sat09/03/23 at 0900, Until Discontinued, For SUBCUTANEOUS route ONLY: alternate injection sites between left and right abdominal wall, pinching location and avoiding area around navel. If unable to use abdominal sites, may use the front or side of thighs., Indications: DVT/PE prophylaxis ezetimibe 10 mg oral tablet (20 sources) Dietary Cholesterol Absorption Inhibitor Start: Ezetimibe 10 MG Oral Tablet Quantity: 30 Refills: 0 Ordered: 08-Jun-2021 DO Start : 08-Jun-2021 Active Start: 06-08-2021 End: 06-24-2024 take 1 tablet by mouth once daily Ezetimibe 10 mg tablet Discontinued 10 mg PO DAILY January 24, 2022 1:00am October 10, 2023 1:17pm as prescribed fludrocortisone acetate 0.1 mg oral tablet (20 sources) Start: 11-12-2023 End: 07-23-2024 take 1 tablet by mouth once daily in the morning Fludrocortisone 0.1 mg tablet Discontinued 0.2 mg PO EVERY MORNING 180 1 May 26, 2024 1:27pm July 23, 2024 12:19pm 60 actuat formoterol fumarate 0.005 mg/actuat / mometasone furoate 0.1 mg/actuat metered dose inhaler (1 source) Corticosteroid, beta2-Adrenergi c Agonist Start: 09-02-2023 End: 09-03-2023 take 2 puff(s) by inhalation every twelve hours 2 puff, Inhalation, EVERY 12 HOURS, First dose on Sat09/02/23 at 2100, Until Discontinued 1 ml hydrALAZINE hydrochloride 20 mg/ml injection (1 source) Arteriolar Vasodilator Start: 09-02-2023 End: 09-07-2023 take 10 mg intravenously every six hours as needed 10 mg, Intravenous, EVERY 6 HOURS NEEDED, Starting on Sat09/02/23 at 2036, Until 09/07/23 at 1332, SBP > 160 mmHg with HR 24 hr isosorbide mononitrate 60 mg extended release oral tablet (20 sources) Nitrate Vasodilator Start: 10-11-2021 End: 06-10-2023 take 1 tablet by mouth once daily, then take 0.5 tablet by mouth every twenty-four hours in the morning Isosorbide Mononitrate 60 mg tablet extended release 24 hr Discontinued 60 mg PO DAILY June 04, 2022 9:16am June 10, 2023 10:13am heart Take one and 1/2 tab in AM Start: 10-11-2021 take 1.5 tablets by mouth once daily Isosorbide Mononitrate ER 60 MG Oral Tablet Extended Release 24 Hour TAKE 1.5 TABLET ONCE DAILY. Quantity: 90 Refills: 3 Ordered: 03-Nov-2022 eNvin Rogers MD Start : 11-Oct-2021 Active Start: 10-11-2021 take 1 tablet by efrain th once daily Isosorbide Mononitrate ER 30 MG Oral Tablet Extended Release 24 Hour Take 1 tablet by mouth daily Quantity: 30 Refills: 11 Ordered: 11-Oct-2021 Jayne Mccann Start : 11-Oct-2021 Active labetalol (NORMODYNE) 10 mg in Sodium chloride 0.9%, with overfill 62 mL (total volume) IVPB (1 source) Start: 09-02-2023 End: 09-07-2023 take 10 mg intravenously every six hours as needed 10 mg, Intravenous, at 248 mL/hr, Administer over 15 Minutes, EVERY 6 HOURS NEEDED, Starting on 09/02/23 at 2036, Until 09/07/23 at 1332, SBP > 160 mmHg with HR >60 bpm, Hold for HR levoFLOXacin 750 mg oral tablet (20 sources) Quinolone Antimicrobial Start: 01-24-2022 levoFLOXacin 750 MG Oral Tablet Quantity: 7 Refills: 0 Ordered: 24-Jan-2022 DO Start : 24-Jan-2022 Complete Start: 01-24-2022 End: 05-17-2022 take 1 tablet by mouth once daily Levofloxacin 750 mg tablet Discontinued 750 mg PO DAILY 7 January 24, 2022 1:00am May 17, 2022 10:16am levothyroxine sodium 0.075 mg oral tablet (20 sources) l-Thyroxine Start: 09-03-2023 End: 09-07-2023 take 150 ug by mouth once daily before breakfast 150 mcg, Oral, DAILY BEFORE BREAKFAST, First dose on Sat09/03/23 at 0600, Until Discontinued Start: 01-13-2021 take 1 tablet by efrain th once daily Levothyroxine (Synthroid) 150 mcg tablet Active 150 ug PO DAILY January 13, 2021 1:00am thyroid Start: 11-21-2020 Synthroid 150 MCG Oral Tablet Quantity: 30 Refills: 0 Ordered: 21-Nov-2020 DO Start : 21-Nov-2020 Active Start: 07-29-2020 End: 01-04-2021 take 1 tablet by mouth once daily Levothyroxine 150 mcg tablet Discontinued 150 ug PO DAILY July 29, 2020 12:00am January 04, 2021 10:18am take 1 tablet by efrain th once daily levothyroxine 150 mcg (0.15 mg) oral tablet ; 1 tab(s) orally once a day Quantity: 0 Refills: 0 Ordered: 28-Dec-2020 Paula Jones Generic Substitution Allowed magnesium hydroxide 240 mg/ml oral suspension (1 source) Start: 09-02-2023 End: 09-07-2023 take 10 mL by mouth every twenty-four hours as needed 10 mL, Oral, EVERY 24 HOURS NEEDED, Starting on Sat09/02/23 at 2035, Until 09/07/23 at 1332, Other, If no Bowel Movement in 72 hours in addition to exisitng regimen., 10 mL concentrate = 30 mL regular melatonin 3 mg oral tablet (1 source) Start: 09-02-2023 End: 09-07-2023 take 6 mg by mouth once daily at bedtime as needed 6 mg, Oral, DAILY AT BEDTIME NEEDED, Starting on Sat09/02/23 at 2035, Until 09/07/23 at 1332, Insomnia 24 hr metoprolol succinate 25 mg extended release oral tablet (20 sources) beta-Adrenergi c Shahid Start: 10-29-2023 End: 04-01-2024 take 2 tablets by mouth every twenty-four hours Metoprolol Succinate 25 mg tablet extended release 24 hr Discontinued 12.5 mg PO 1800 October 29, 2023 12:00am April 01, 2024 3:05pm bp On Hold: Hypotension Start: 09-03-2023 End: 09-07-2023 12.5 mg, Oral, DAILY, First dose on Sat09/03/23 at 0900, Until Discontinued, Slow release product. Do not crush. Extended release can be cut in half. Start: 01-26-2023 take 0.5 tablet by m outh once daily metoprolol succinate XL (Toprol-XL) 25 mg 24 hr tablet Take 0.5 tablets (12.5 mg) by mouth once daily. 01/26/2023 Active Start: 01-24-2022 End: 10-29-2023 take 2 tablets by mouth once daily Metoprolol Succinate 25 mg tablet extended release 24 hr Discontinued 12.5 mg PO DAILY October 10, 2023 1:17pm October 29, 2023 8:35pm bp Start: 01-24-2022 take 12.5 mg by mout h once daily Metoprolol Succinate Active 12.5 MG PO DAILY January 24, 2022 1:00am Start: 06-08-2021 take 0.5 tablet by m outh once daily Metoprolol Succinate ER 25 MG Oral Tablet Extended Release 24 Hour Take 1/2 tab daily Quantity: 45 Refills: 3 Ordered: 03-Nov-2022 Nevin Rogers MD Start : 08-Jun-2021 Active Start: 06-08-2021 take 1 tablet by efrain th once daily Metoprolol Succinate ER 50 MG Oral Tablet Extended Release 24 Hour TAKE 1 TABLET BY MOUTH ONCE A DAY. Quantity: 90 Refills: 3 Ordered: 23-Jun-2021 Jose E ETIENNEJayne Start : 08-Jun-2021 Active Start: 06-08-2021 take 1 tablet by efrain th every twenty-four hours Metoprolol Succinate ER 25 MG Oral Tablet Extended Release 24 Hour Quantity: 15 Refills: 0 Ordered: 08-Jun-2021 DO Start : 08-Jun-2021 Active Start: 06-08-2021 End: 08-06-2021 take 1 tablet by mouth once daily at mealtime metoprolol succinate 25 mg oral tablet, extended release ; 0.5 tab(s) orally once a day -.Meds to Beds Quantity: 15 Refills: 1 Ordered: 08-Jun-2021 Leandra Pollack Start: 08-Jun-2021 End: 06-Aug-2021 Generic Substitution Allowed Comments: It is very important that you take or use this exactly as directed. Do not skip doses or discontinue unless directed by your doctor.May cause drowsiness or dizziness.Some non-prescription drugs may aggravate your condition. Read all labels carefully. If a warning appears, check with your doctor before taking.Swallow whole. Do not crush.Take with food or milk.This drug may impair the ability to drive or operate machinery. Use care until you become familiar with its effects. End: 06-24-2024 take 0.5 tablet by mouth once daily Metoprolol 25 MG tab regular release Take 0.5 tablets by mouth daily. 06/24/2024 Discontinued Comment on above: It is very important that you take or use this exactly as directed. Do not skip doses or discontinue unless directed by your doctor.May cause drowsiness or dizziness.Some non-prescription drugs may aggravate your condition. Read all labels carefully. If a warning appears, check with your doctor before taking.Swallow whole. Do not crush.Take with food or milk.This drug may impair the ability to drive or operate machinery. Use care until you become familiar with its effects. metroNIDAZOLE 500 mg oral tablet (20 sources) Nitroimidazole Antimicrobial Start: End: take 1 tablet by mouth twice daily Metronidazole 500 mg tablet Discontinued 500 mg PO TWICE A DAY October 30, 2023 12:00am November 02, 2023 9:59am 24 hr mirabegron 25 mg extended release oral tablet (4 sources) beta3-Adrenergic Agonist End: Myrbetriq 25 MG Oral Tablet Extended Release 24 Hour Quantity: 0 Refills: 0 Ordered: 07-Mar-2021 DO End : 07-Mar-2021 Complete take 10 tablets by m outh every twenty-four hours Myrbetriq 25 MG Oral Tablet Extended Release 24 Hour Quantity: 0 Refills: 0 Ordered: 27-Feb-2021 DO Active omeprazole 40 mg delayed release oral capsule (20 sources) Proton Pump Inhibitor Start: 01-18-2021 End: 03-25-2024 take 1 capsule by mouth once daily Omeprazole 40 mg capsule,delayed release(DR/EC) Discontinued 40 mg PO DAILY June 18, 2023 10:06am October 10, 2023 1:44pm Gastroesophageal reflux disease Gastro-esophageal reflux disease without esophagitis gerd Start: 11-18-2020 End: 06-18-2023 Omeprazole 40 mg capsule,del ayed release(DR/EC) Discontinued 40 mg PO TWICE A DAY 120 0 November 18, 2020 12:00am June 18, 2023 10:08am Gastroesophageal reflux disease Gastro-esophageal reflux disease without esophagitis gerd Take one cap by mouth two times a day for eight weeks. Then will taper. Ondansetron 4mg/2ml (ZOFRAN) injection 4 mg (1 source) Start: 09-02-2023 End: 09-07-2023 take 4 mg intravenously every six hours as needed Ondansetron 4mg/2ml (ZOFRAN) injection 4 mg oseltamivir 75 mg oral capsule (10 sources) Neuraminidase Inhibitor Start: 03-08-2024 End: 04-01-2024 take 1 capsule by mouth twice daily Oseltamivir (Tamiflu) 75 mg capsule Discontinued 75 mg PO TWICE A DAY 10 5 0 March 08, 2024 1:00am April 01, 2024 3:06pm oxyCODONE hydrochloride 5 mg oral tablet (13 sources) Opioid Agonist Start: 09-07-2023 End: 10-02-2023 take 1 tablet by mouth every six hours as needed for pain Oxycodone 5 mg tablet Discontinued 5 mg PO EVERY 6 HOURS as needed for pain (1-10) 0 September 07, 2023 12:00am September 17, 2023 8:57pm Start: 09-02-2023 End: 09-07-2023 take 1 tablet by mouth every four hours as needed oxyCODONE (ROXICODONE) tablet 5 mg pantoprazole 40 mg delayed release oral tablet (1 source) Proton Pump Inhibitor Start: 09-03-2023 End: 09-07-2023 take 40 mg by mouth once daily 40 mg, Oral, DAILY, First dose on Sat09/03/23 at 0900, Until Discontinued, Swallow whole; do not crush or chew., Indications: Continuation of Home Therapy Polyethylene glycol (MIRALAX) packet 17 g (1 source) Start: 09-02-2023 End: 09-07-2023 Polyethylene glycol (MIRALAX) packet 17 g Promethazine (1 source) Phenothiazine Start: 09-02-2023 End: 09-07-2023 take 1 tablet by mouth every six hours as needed Promethazine HCl (PHENERGAN) tablet 12.5 mg rosuvastatin calcium 5 mg oral tablet (20 sources) HMG-CoA Reductase Inhibitor Start: 09-03-2023 End: 09-07-2023 take 5 mg by mouth once daily 5 mg, Oral, DAILY, First dose on Sat09/03/23 at 0900, Until Discontinued Start: 06-23-2021 End: 04-10-2024 take 1 tablet by mouth once daily Rosuvastatin 5 mg tablet Discontinued 5 mg PO DAILY January 24, 2022 1:00am October 10, 2023 1:17pm cholesterol Senna Leaves (1 source) Start: 09-03-2023 End: 09-07-2023 Senna (SENOKOT) tablet 8.6 mg simvastatin 20 mg oral tablet (20 sources) HMG-CoA Reductase Inhibitor Start: 11-21-2020 Simvastatin 20 MG Or al Tablet Quantity: 30 Refills: 0 Ordered: 21-Nov-2020 DO Start : 21-Nov-2020 Active Start: 11-02-2020 End: 01-04-2021 take 1 tablet by mouth once daily Simvastatin 20 mg tablet Discontinued 20 mg PO DAILY November 02, 2020 2:43pm January 04, 2021 10:18am Start: 07-29-2020 End: 11-02-2020 Simvastatin 20 mg tablet Discontinued 21 mg PO DAILY July 29, 2020 12:00am November 02, 2020 2:45pm Start: 07-29-2020 End: 11-02-2020 take 21 mg by mouth once daily Simvastatin Discontinue d 21 MG PO DAILY July 29, 2020 12:00am November 02, 2020 2:45pm simvastatin ; no t sure of dose Quantity: 0 Refills: 0 Ordered: 17-May-2021 Paula Jones Status: Other Generic Substitution Allowed 1000 ml sodium chloride 9 mg/ml injection (1 source) Start: 09-02-2023 End: 09-07-2023 Intravenous, at 20 mL/hr, NEEDED, Starting on 09/02/23 at 2036, Until 09/07/23 at 1332, Carrier Fluid - See Admin. Inst, 250mL 0.9NS to be used as carrier fluid for intermittent small volume or piggyback medication administration as needed. Infusion rate of the carrier fluid should be set at 20 mL/hr unless the rate as the intermittent medication is less than 20 mL/hr. For intermittent medications with a rate less than 20 mL/hr set the carrier fluid at that rate of the intermittent or piggy back medication. spironolactone 25 mg oral tablet (20 sources) Aldosterone Antagonist Start: 06-04-2022 End: 06-10-2023 take 1 tablet by mouth once daily Spironolactone 25 mg tablet Discontinued 25 mg PO DAILY June 04, 2022 12:00am June 10, 2023 10:13am diuretic Start: 03-27-2022 take 0.5 tablet by m outh once daily Spironolactone 25 MG Oral Tablet TAKE 0.5 TABLET Daily Quantity: 45 Refills: 3 Ordered: 03-Nov-2022 Nevin Rogers MD Start : 27-Mar-2022 Active tiZANidine 2 mg oral tablet (13 sources) Central alpha-2 Adrenergic Agonist Start: 06-21-2023 End: 09-17-2023 take 1 tablet by mouth every six hours as needed Tizanidine 2 mg tablet Discontinued 2 mg PO EVERY 6 HOURS as needed for muscle spasticity June 21, 2023 12:00am September 17, 2023 8:57pm End: 08-29-2023 take 1 tablet by mouth three times daily Tizanidine 2 MG tablet Take 1 tablet by mouth 3 times daily. 08/29/2023 Discontinued (Discontinued by another clinician (suppress cancel msg)) triamcinolone acetonide 1 mg/ml topical cream (20 sources) Corticosteroid Start: 07-04-2020 End: 02-07-2022 Triamcinolone Acetonide 0.1 % External Cream Quantity: 454 Refills: 0 Ordered: 05-Dec-2020 DO Start : 04-Jul-2020 End : 07-Feb-2022 Complete Problems Active Problems Problem Classification Problem Date Documented Da te Episodic/Chronic Administrative/social admission (20 sources) Counseling procedure with explicit context; Translations: [Counseling on substance use and abuse] 05-17-2022 Episodic Asthma (20 sources) Asthma; Translations: [Asthma, unspecified type, unspecified] Onset: 4 05-17-2022 Chronic Cardiac dysrhythmias (20 sources) Tachycardia; Translations: [Tachycardia, unspecified] Onset: 2 06-06-2021 Episodic Chronic obstructive pulmonary disease and bronchiectasis (20 sources) Acute exacerbation of chronic obstructive airways disease; Translations: [Chronic obstructive pulmonary disease with (acute) exacerbation] Onset: 5 02-01-2022 Chronic Chronic obstructive pulmonary disease and bronchiectasis (8 sources) Chronic obstructive pulmonary disease and bronchiectasis; Translations: [Other specified chronic obstructive pulmonary disease] Onset: 5 Complications of surgical procedures or medical care (20 sources) Postoperative hypothyroidism; Translations: [Postsurgical hypothyroidism] Onset: 4 05-17-2022 Chronic Congestive heart failure; nonhypertensive (20 sources) Acute on chronic diastolic heart failure; Translations: [Acute on chronic diastolic heart failure] Onset: 5 06-07-2021 Chronic Coronary atherosclerosis and other heart disease (20 sources) Coronary arteriosclerosis; Translations: [Coronary atherosclerosis of unspecified type of vessel, [place] or graft] Onset: 3 05-17-2022 Chronic Coronary atherosclerosis and other heart disease (1 source) Coronary atherosclerosis and other heart disease 06-06-2021 Disorders of lipid metabolism (20 sources) Hyperlipoproteinemia; Translations: [Other and unspecified hyperlipidemia] Onset: 2 06-06-2021 Chronic Esophageal disorders (20 sources) Laryngopharyngeal reflux; Translations: [Other diseases of larynx, not elsewhere classified] Onset: 4 10-25-2023 Chronic Essential hypertension (20 sources) Hypertensive disorder; Translations: [Unspecified essential hypertension] Onset: 3 05-17-2022 Chronic Genitourinary symptoms and ill-defined conditions (20 sources) Urge incontinence of urine; Translations: [Urge incontinence] 05-17-2022 Chronic Hyperplasia of prostate (20 sources) Hyperplasia of prostate; Translations: [Benign localized hyperplasia of prostate with urinary obstruction and other lower urinary tract symptoms (LUTS)] Onset: 4 05-17-2022 Chronic Immunity disorders (1 source) 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; 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] Onset: Chronic Immunizations and screening for infectious disease (1 source) Contact with or exposure to other viral diseases Onset: 2 06-06-2021 Episodic Influenza (10 sources) Influenza due to Influenza A virus; Translations: [Influenza due to other identified influenza virus with other respiratory manifestations] 03-16-2024 Episodic Malaise and fatigue (20 sources) Fatigue; Translations: [Other fatigue] 06-15-2022 Episodic Mycoses (20 sources) Mycosis; Translations: [Other and unspecified mycoses] 05-17-2022 Episodic Nonspecific chest pain (2 sources) Chest pain; Translations: [Chest pain, unspecified] 06-03-2021 Episodic Occlusion or stenosis of precerebral arteries (20 sources) Carotid artery occlusion; Translations: [Occlusion and stenosis of unspecified carotid artery] Onset: 4 09-24-2022 Chronic Other aftercare (1 source) Drug indicated; Translations: [Long-term (current) use of other medications] Onset: 2 06-06-2021 Episodic Other aftercare (1 source) Drug therapy finding; Translations: [Long-term (current) use of steroids] Onset: 2 06-06-2021 Episodic Other aftercare (1 source) Other rn long term care (current) drug therapy; Translations: [Other rn long term care (current) drug therapy] Onset: 2 Episodic Other and ill-defined heart disease (11 sources) Diastolic dysfunction; Translations: [Other ill-defined heart diseases] 06-21-2023 Chronic Other and ill-defined heart disease (1 source) Other ill-defined heart diseases; Translations: [Heart disease, unspecified] 06-21-2023 Chronic Other circulatory disease (19 sources) Disorder of carotid artery; Translations: [Disorder of arteries and arterioles, unspecified] 06-18-2023 Chronic Other circulatory disease (2 sources) Disorder of arteries and arterioles, unspecified; Translations: [Unspecified disorders of arteries and arterioles] Onset: 5 06-18-2023 Chronic Other circulatory disease (20 sources) Orthostatic hypotension; Translations: [Orthostatic hypotension] 07-02-2022 Episodic Other circulatory disease (13 sources) Clearing throat - hawking; Translations: [Other specified symptoms and signs involving the circulatory and respiratory systems] 05-16-2023 Episodic Other circulatory disease (10 sources) Transient hypotension; Translations: [Hypotension, unspecified] 11-05-2023 Episodic Other circulatory disease (10 sources) Nasal mucosa moist 06-10-2023 Episodic Other diseases of kidney and ureters (2 sources) Other obstructive and reflux uropathy; Translations: [Other obstructive and reflux uropathy] Onset: 4 Episodic Other gastrointestinal disorders (1 source) Abdominal distension, gaseous; Translations: [Flatulence, eructation, and gas pain] Onset: 2 06-06-2021 Episodic Other gastrointestinal disorders (20 sources) Cricopharyngeal disorder; Translations: [Dysphagia, pharyngeal phase] 11-02-2020 Episodic Other gastrointestinal disorders (18 sources) Diarrhea; Translations: [Diarrhea, unspecified] 03-16-2023 Episodic Other gastrointestinal disorders (8 sources) Diarrhea, unspecified; Translations: [Diarrhea] 03-16-2023 Episodic Other gastrointestinal disorders (20 sources) Dysphagia; Translations: [Dysphagia, unspecified] 09-07-2023 Episodic Other gastrointestinal disorders (1 source) Dysphagia, unspecified; Translations: [Dysphagia, unspecified] Onset: 5 Episodic Other hereditary and degenerative nervous system conditions (20 sources) Impaired cognition; Translations: [Mild cognitive impairment, so stated] 06-06-2022 Chronic Other hereditary and degenerative nervous system conditions (5 sources) Mild cognitive impairment, so stated; Translations: [Mild cognitive impairment, so stated] 06-04-2022 Chronic Other hereditary and degenerative nervous system conditions (20 sources) Multiple system atrophy; Translations: [Multi-system degeneration of the autonomic nervous system] 04-01-2024 Chronic Other hereditary and degenerative nervous system conditions (1 source) Multi-system degeneration of the autonomic nervous system; Translations: [Multi-system degeneration of the autonomic nervous system] Onset: 5 Chronic Other injuries and conditions due to external causes (11 sources) Angioedema; Translations: [Angioneurotic edema, initial encounter] 06-10-2023 Episodic Other lower respiratory disease (20 sources) Difficulty breathing; Translations: [Other respiratory abnormalities] Onset: 4 05-17-2022 Episodic Other lower respiratory disease (20 sources) Dyspnea; Translations: [Other respiratory abnormalities] Onset: 2 06-03-2021 Episodic Comment on above: SOB Other lower respiratory disease (1 source) Sleep finding; Translations: [Orthopnea] Onset: 2 06-06-2021 Episodic Other lower respiratory disease (2 sources) Tachypnea; Translations: [Tachypnea] Onset: 2 06-06-2021 Episodic Other lower respiratory disease (1 source) Shortness of breath 06-06-2021 Episodic Other lower respiratory disease (20 sources) Dyspnea on exertion; Translations: [Shortness of breath] Onset: 4 05-17-2022 Episodic Other lower respiratory disease (20 sources) Snoring; Translations: [Other respiratory abnormalities] Onset: 4 05-17-2022 Episodic Other lower respiratory disease (5 sources) Shortness of breath; Translations: [Shortness of breath] Onset: 2 06-18-2023 Episodic Other lower respiratory disease (2 sources) Wheezing; Translations: [Wheezing] Onset: 2 Episodic Other lower respiratory disease (16 sources) Cough; Translations: [Cough] 05-16-2023 Episodic Other lower respiratory disease (2 sources) Dyspnea, unspecified; Translations: [Other respiratory abnormalities] 05-16-2023 Episodic Other lower respiratory disease (20 sources) Hypoxia; Translations: [Hypoxemia] 06-21-2023 Episodic Other male genital disorders (6 sources) Male erectile dysfunction, unspecified; Translations: [Impotence of organic origin] Onset: 4 05-29-2023 Chronic Other nervous system disorders (1 source) Postoperative pain ; Translations: [Other acute postprocedural pain] 09-07-2023 Episodic Other nutritional; endocrine; and metabolic disorders (20 sources) History of hypercholesterolemia; Translations: [Personal history of other endocrine, metabolic, and immunity disorders] Episodic Other nutritional; endocrine; and metabolic disorders (2 sources) Abnormal weight gain; Translations: [Abnormal weight gain] Onset: 2 06-06-2021 Episodic Other nutritional; endocrine; and metabolic disorders (10 sources) Body mass index 25-29 - overweight; Translations: [Overweight] 10-30-2023 Episodic Other screening for suspected conditions (not mental disorders or infectious disease) (20 sources) CT of chest abnormal; Translations: [Nonspecific (abnormal) findings on radiological and other examination of other intrathoracic organs] Chronic Comment on above: [06/05/2021]: Near c omplete occlusion of RCA in mid portion caused by noncalcified plaque. Reconstitution of flow distal to the stenosis. Nonobstructive coronary artery disease involving the LAD and LCx causing less than 50% stenosis. Total calcium score = 225.; Other screening for suspected conditions (not mental disorders or infectious disease) (20 sources) Raised cardiac enzyme or marker; Translations: [Other abnormal blood chemistry] Onset: 2 06-06-2021 Episodic Comment on above: 06/04/2021 = 0.49 = 0.66 & 0.60; 11/01/2021 = 129 ... 09/11/2021 = 155 ... 06/03/2021 = 112; [06/05/2021] = 225.3 (LM 19.2, LAD 168, LCx 38.1, RCA 0); Other upper respiratory disease (12 sources) Complete bilateral paralysis of vocal cords; Translations: [Paralysis of vocal cords and larynx, bilateral] Onset: 4 07-10-2023 Chronic Other upper respiratory disease (5 sources) Tracheostomy present; Translations: [Tracheostomy status] 09-04-2023 Chronic Other upper respiratory disease (2 sources) Paralysis of vocal cords and larynx, bilateral; Translations: [Paralysis of vocal cords and larynx, bilateral] Onset: 4 Chronic Other upper respiratory disease (3 sources) Tracheostomy status; Translations: [Tracheostomy status] Onset: 4 Chronic Other upper respiratory disease (20 sources) Laryngeal spasm; Translations: [Laryngeal spasm] Onset: 4 05-17-2022 Episodic Other upper respiratory disease (20 sources) Change in voice; Translations: [Other voice and resonance disorders] Onset: 4 05-17-2022 Episodic Other upper respiratory disease (20 sources) Hoarse; Translations: [Dysphonia] Onset: 4 05-17-2022 Episodic Other upper respiratory disease (20 sources) Laryngismus ; Translations: [Laryngeal spasm] 07-29-2020 Episodic Other upper respiratory disease (11 sources) Vocal cord dysfunction; Translations: [Other diseases of vocal cords] 06-21-2023 Episodic Other upper respiratory disease (1 source) Other diseases of vocal cords; Translations: [Other diseases of vocal cords] 06-21-2023 Episodic Parkinson`s disease (20 sources) Parkinson's disease; Translations: [Parkinson's disease] Onset: 4 06-06-2022 Chronic Parkinson`s disease (10 sources) Parkinson`s disease; Translations: [Parkinson's disease without dyskinesia, without mention of fluctuations] Onset: Phlebitis; thrombophlebitis and thromboembolism (20 sources) Acute deep vein thrombosis of lower limb; Translations: [Acute venous embolism and thrombosis of unspecified deep vessels of lower extremity] Episodic Pneumonia (except that caused by tuberculosis or sexually transmitted disease) (20 sources) Pneumonia; Translations: [Pneumonia, unspecified organism] 02-01-2022 Episodic Residual codes; unclassified (20 sources) Parasomnia; Translations: [Parasomnia, unspecified] 11-02-2020 Chronic Residual codes; unclassified (20 sources) Sleep apnea; Translations: [Unspecified sleep apnea] Onset: 4 05-17-2022 Chronic Residual codes; unclassified (20 sources) Hypersomnia; Translations: [Hypersomnia, unspecified] 06-15-2022 Chronic Residual codes; unclassified (5 sources) Hypersomnia, unspecified; Translations: [Hypersomnia, unspecified] 06-04-2022 Chronic Residual codes; unclassified (10 sources) Sleep apnea, unspecified; Translations: [Unspecified sleep apnea] 07-03-2022 Chronic Residual codes; unclassified (20 sources) Obstructive sleep apnea syndrome; Translations: [Obstructive sleep apnea (adult) (pediatric)] 09-11-2022 Chronic Residual codes; unclassified (12 sources) Obstructive sleep apnea (adult) (pediatric); Translations: [Obstructive sleep apnea (adult)(pediatric)] Onset: 5 09-11-2022 Chronic Residual codes; unclassified (20 sources) Tobacco user; Translations: [Tobacco use disorder] 05-17-2022 Episodic Residual codes; unclassified (5 sources) Edema of lower extremity; Translations: [Edema] 06-03-2021 Episodic Comment on above: LEG EDEMA Residual codes; unclassified (20 sources) Past history of procedure; Translations: [Other specified personal history presenting hazards to health] Episodic Comment on above: Pharmacologic Nuclea r Stress Test [10/26/2021]: Normal stress myocardial perfusion imaging in response to pharmacologic stress. Well-maintained left ventricular function, ejection fraction 65%.; Respiratory failure; insufficiency; arrest (adult) (4 sources) Acute hypoxemic respiratory failure; Translations: [Acute respiratory failure with hypoxia] 03-16-2023 Episodic Substance-related disorders (20 sources) Nicotine user; Translations: [Tobacco use disorder] Onset: 2 06-06-2021 Chronic Thyroid disorders (20 sources) Hypothyroidism; Translations: [Unspecified acquired hypothyroidism] Onset: 2 06-06-2021 Chronic Comment on above: ON MED Unclassified (1 source) SCC 05-22-2021 Comment on above: SCC Unclassified (4 sources) SCC SERIES 05-22-2021 Comment on above: SCC SERIES Unclassified (1 source) ALLERGY FUV 04-03-2021 Comment on above: ALLERGY FUV Unclassified (1 source) CAD,ADHF 06-07-2021 Comment on above: CAD,ADHF Unclassified (1 source) 3MONTH FOLLOW UP 03-22-2021 Comment on above: 3MONTH FOLLOW UP Unclassified (1 source) Lower extremity edema 06-03-2021 Unclassified (1 source) Encounter for long-term (current) use of other medications 06-06-2021 Unclassified (1 source) Current use of steroid medication 06-06-2021 Unclassified (1 source) Sleeps in sitting position due to orthopnea 06-06-2021 Unclassified (1 source) Gaseous abdominal distention 06-06-2021 Unclassified (1 source) Current nicotine use 06-06-2021 Unclassified (1 source) Elevated troponin level 06-06-2021 Unclassified (1 source) Close exposure to COVID-19 virus 06-06-2021 Unclassified (1 source) S/P drug eluting coronary stent placement 06-07-2021 Unclassified (1 source) CAD (coronary artery disease) 06-07-2021 Unclassified (1 source) Cough, unspecified; Translations: [Cough, unspecified] Onset: Viral infection (10 sources) Disease caused by 2019-nCoV; Translations: [COVID-19] 10-22-2023 Episodic Viral infection (2 sources) COVID-19; Translations: [COVID-19] Onset: Past or Other Problems Problem Classification Problem Date Documented Da te Episodic/Chronic Anal and rectal conditions (11 sources) Proctitis; Translations: [Other specified diseases of anus and rectum] Onset: 10-23-2023 10-22-2023 Episodic Conditions associated with dizziness or vertigo (12 sources) Dizziness; Translations: [Dizziness and giddiness] Onset: 05-18-2024 06-18-2023 Episodic Coronary atherosclerosis and other heart disease (20 sources) Presence of coronary angioplasty implant and graft; Translations: [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 artery] Onset: 05-19-2021 Episodic Comment on above: mid RCA-SKYLAR 3.5 x 26 mm Resolute Holden E Codes: Adverse effects of medical drugs (11 sources) Adverse reaction to drug; Translations: [Adverse effect of unspecified drugs, medicaments and biological substances, initial encounter] Onset: 11-02-2023 10-30-2023 Episodic E Codes: Fall (11 sources) Fall; Translations: [Unspecified fall, initial encounter] Onset: 05-18-2024 09-09-2023 Episodic Fluid and electrolyte disorders (20 sources) Hypokalemia; Translations: [Hypokalemia] Onset: 11-02-2023 06-18-2023 Episodic Genitourinary symptoms and ill-defined conditions (20 sources) Poor stream of urine; Translations: [Slowing of urinary stream] Onset: 03-20-2023 05-17-2022 Episodic Mood disorders (6 sources) Mood disorders Onset: 07-10-2023 Resolved: 06-24-2024 07-10-2023 Other aftercare (1 source) Encounter for surgical aftercare following surgery on the respiratory system; Translations: [Encounter for surgical aftercare following surgery on the respiratory system] Onset: 09-24-2023 Episodic Other circulatory disease (9 sources) Orthostatic hypotension; Translations: [Orthostatic hypotension] Onset: 01-29-2024 03-16-2023 Episodic Other circulatory disease (2 sources) Hypotension, unspecified; Translations: [Hypotension, unspecified] Onset: 11-02-2023 Episodic Other lower respiratory disease (2 sources) Hypoxemia; Translations: [Hypoxemia] Onset: 10-25-2023 06-21-2023 Episodic Other lower respiratory disease (2 sources) Other forms of dyspnea; Translations: [Other forms of dyspnea] Onset: 07-10-2023 Episodic Other male genital disorders (1 source) Disorder of male genital organs, unspecified; Translations: [Disorder of male genital organs, unspecified] Onset: 04-01-2024 Episodic Other nervous system disorders (2 sources) Other acute postprocedural pain; Translations: [Other acute postprocedural pain] Onset: 09-02-2023 Episodic Other nutritional; endocrine; and metabolic disorders (1 source) Overweight; Translations: [Overweight] Onset: 11-02-2023 Episodic Other upper respiratory disease (2 sources) Stridor; Translations: [Stridor] Onset: 07-10-2023 07-10-2023 Episodic Other upper respiratory disease (1 source) Stridor; Translations: [Stridor] Onset: 07-10-2023 Episodic Residual codes; unclassified (1 source) Tobacco use; Translations: [Tobacco use] Onset: 09-25-2022 Episodic Syncope (11 sources) Near syncope; Translations: [Syncope and collapse] Onset: 11-02-2023 10-29-2023 Episodic Unclassified (5 sources) Nasal mucosa moist; Translations: [Moist mucous membranes of ear, nose, and throat] 05-16-2023 Unclassified (4 sources) Onset: 05-29-2023 Resolved: 10-17-2023 05-29-2023 Urinary tract infections (12 sources) Recurrent urinary tract infection; Translations: [Urinary tract infection, site not specified] Onset: 10-25-2023 10-17-2023 Episodic Results Test Name Value Interpretation Reference Range Facility Pulmonary Visit Reporton Pulmonary Visit Report Normal [facility] Chest without Contraston Chest without Contrast Normal [facility] Neurology Visit Reporton Neurology Visit Report Normal [facility] Pulmonary Visit Reporton Pulmonary Visit Report Normal [facility] Modified Barium Swallow Stud yon 07-10-2024 Modified Barium Swallow Study Normal [facility] 6 Minute Walk Teston 025 6 Minute Walk Test Normal [facility] Carotid Duplex Ultrasoundon 06-22-2024 Carotid Duplex Ultrasound Normal [facility] Duplex ultrasound of carotid artery reportOrdered By: Harrison Macario on 06-22-2024 Study report [facility] [address] [place] [place] [address] Carotid Duplex Ultrasound 06/22/24 1304 MR#: [id number] Acct: [id number] Name: FREDDIE COLE Rep #:[id number] : 1960 64 From: Harrison Dyer Attending Dr: Dr. Christian Hernandez MD Status: REG CLI Ordering Dr: Christian Hernandez MD Date: 06/22/24 Location: [facility] Sex: M C Admitted: Reason For Study Reason For Study: Right ICA stenosis Rt. Velocities/BP Lt. Velocities/BP Prox CCA 62.6/9.7 cm/sec. Prox CCA 63.1/15.1 cm/sec. Mid CCA 57.5/12.4 cm/sec. Mid CCA 52.2/10.2 cm/sec. Dist CCA 61.9/14.6 cm/sec. Dist CCA 56.4/16.6 cm/sec. Prox ICA 22.3/6.6 cm/sec. Prox ICA 43.9/14.2 cm/sec. Mid ICA 44.8/12.5 cm/sec. Mid ICA 46.5/16.8 cm/sec. Dist ICA 40.4/10.7 cm/sec. Dist ICA 63.1/28.2 cm/sec. Rt. ICA/CCA = 0.78. Lt. ICA/CCA = 1.21. Prox ECA 88.8/20 cm/sec. Prox ECA 63.1/17.7 cm/sec. Rt. Vert. 37.2/17.3 cm/sec. Lt. Vert. 25.6/9.9 cm/sec. Right Extracranial There is intimal thickening but no significant atherosclerotic plaque noted in the right common carotid artery. There is heterogeneous, irregular atherosclerotic plaque noted in the right internal carotid artery. ICA is very minimal in size. There is intimal thickening but no significant atherosclerotic plaque noted in the right external carotid artery. Antegrade flow is noted in the right vertebral artery. Left Extracranial There is intimal thickening but no significant atherosclerotic plaque noted in the left common carotid artery. There is intimal thickening but no significant atherosclerotic plaque noted in the left internal carotid artery. There is intimal thickening but no significant atherosclerotic plaque noted in the left external carotid artery. Antegrade flow is noted in the left vertebral artery. Procedure Carotid Duplex 60706. This is a Carotid Duplex examination using B-mode, color flow and specral Doppler. Technically difficult due to trachiotomy neck band. Patient states that they do not take it off. Exam performed in department. VL/Carotid Duplex Ultrasound Interpretation Summary Mild (<50%) stenosis right extracranial internal carotid. Small caliber vessel, alternative imaging may be beneficial. Normal left extracranial internal carotid. Patent and antegrade vertebrals bilaterally. Ordering Physician: Christian Hernandez Referring Physician: Biju Lobo Performed By: Jessica Yuan RVT 06/22/241736 Date _ Harrison Macario MD CC: Dr. Biju Lobo, DO; Dr. Christian Hernandez MD ~ Date Dictated: 06/22/24 1304 Date Transcribed: 06/22/241736 Medical Associate: Signed [facility] Work Phone: Pulmonary Visit Reporton Pulmonary Visit Report Normal [facility] Neurology Visit Reporton Neurology Visit Report Normal [facility] Pulmonary Visit Reporton Pulmonary Visit Report Normal [facility] Comprehensive Metabolic Prof ilon 04-14-2024 Albumin [Mass/Vol] 3.9 g/dL Normal 3.2-5.0 [facility] Comment on above: Performed By: #### L 500.4050, L500.4100 ####[facility] [address] [place], [place], [id number] Albumin/Globulin [Mass ratio] 1.1 {ratio} Normal 0.9-2.4 [facility] Comment on above: Performed By: #### L 500.4050, L500.4100 ####[facility] [address] [place], [address] ALK P 81 U/L Normal 45-117 [facility] Comment on above: Performed By: #### L 500.4050, L500.4100 ####[facility] [address] [place], [address] ALT [Catalytic activity/Vol] 27 U/L Normal 16-61 [facility] Comment on above: Performed By: #### L 500.4050, L500.4100 ####[facility] [address] [place], [address] AST [Catalytic activity/Vol] 18 U/L Normal 15-37 [facility] Comment on above: Performed By: #### L 500.4050, L500.4100 ####[facility] [address] [place], [address] Bilirubin [Mass/Vol] 0.80 mg/dL Normal 0.20-1.00 [facility] Comment on above: Result Comment: For patients on eltrombopag therapy, use of Dimension [place] TBIL is not recommended. Performed By: #### L 500.4050, L500.4100 ####[facility] [address] [place], [address] BUN/CRE 18.9 RATIO Normal 10-20 [facility] Comment on above: Performed By: #### L 500.4050, L500.4100 ####[facility] [address] [place], [address] CA,Total 9.3 mg/dL Normal 8.5-10.1 [facility] Comment on above: Performed By: #### L 500.4050, L500.4100 ####[facility] [address] [place], [address] Chloride [Moles/Vol] 106 mmol/L Normal 98-107 [facility] Comment on above: Performed By: #### L 500.4050, L500.4100 ####[facility] [address] [place], [address] CO2 [Moles/Vol] 30.0 mmol/L Normal 21.0-32.0 [facility] Comment on above: Performed By: #### L 500.4050, L500.4100 ####[facility] [address] [place], [address] Creatinine [Mass/Vol] 0.95 mg/dL Normal 0.70-1.30 [facility] Comment on above: Result Comment: The validity of the calculated GFR GFRAA in patients over70 years has not been determined. Clinical correlation isessential. Performed By: #### L 500.4050, L500.4100 ####[facility] [address] [place], [address] EST GFR - AA 102 mL/min Normal >60 [facility] Comment on above: Result Comment: Afri can Filipino GFR Calc Performed By: #### L 500.4050, L500.4100 ####[facility] [address] [place], [address] GAP 5 Normal 5-15 [facility] Comment on above: Performed By: #### L 500.4050, L500.4100 ####[facility] [address] [place], [address] GFR/1.73 sq M.predicted among non-blacks MDRD (S/P/Bld) [Vol rate/Area] 84 mL/min/{1.73_m2} Normal >60 [facility] Comment on above: Result Comment: Non- GFR Calc Performed By: #### L 500.4050, L500.4100 ####[facility] [address] [place], [address] Globulin (S) [Mass/Vol] 3.5 g/dL Normal 2.2-4.2 [facility] Comment on above: Performed By: #### L 500.4050, L500.4100 ####[facility] [address] [place], [address] Glucose [Mass/Vol] 95 mg/dL Normal 74-106 [facility] Comment on above: Performed By: #### L 500.4050, L500.4100 ####[facility] [address] [place], [address] Potassium [Moles/Vol] 4.2 mmol/L Normal 3.5-5.1 [facility] Comment on above: Performed By: #### L 500.4050, L500.4100 ####[facility] [address] [place], [address] Sodium [Moles/Vol] 141 mmol/L Normal 136-145 [facility] Comment on above: Performed By: #### L 500.4050, L500.4100 ####[facility] [address] [place], [address] T PROT 7.4 g/dL Normal 6.4-8.2 [facility] Comment on above: Performed By: #### L 500.4050, L500.4100 ####[facility] [address] [place], [address] Urea nitrogen [Mass/Vol] 18 mg/dL Normal 7-18 [facility] Comment on above: Performed By: #### L 500.4050, L500.4100 ####[facility] [address] [place], [address] Lipid Profileon 04-14-2024 Cholesterol [Mass/Vol] 137 mg/dL Normal 200 [facility] Comment on above: Result Comment: <200 mg/dL Desirable 200-240 mg/dL Borderline >240 mg/dL High Risk Performed By: #### L 500.4050, L500.4100 ####[facility] [address] [place], [address] Cholesterol in HDL [Mass/Vol] 64 mg/dL Normal [facility] Comment on above: Result Comment: The drugs N-Acetylcysteine and Metamizole may falselydepress this assay. Reference Range HDL <40 mg/dL Low HDL Cholesterol HDL >or= 60 mg/dL High HDL Cholesterol Performed By: #### L 500.4050, L500.4100 ####[facility] [address] [place], [address] Cholesterol in LDL [Mass/Vol] 56 mg/dL Normal 0-130 [facility] Comment on above: Performed By: #### L 500.4050, L500.4100 ####[facility] [address] [place], [address] Cholesterol in VLDL [Mass/Vol] 17 mg/dL Normal 5-40 [facility] Comment on above: Performed By: #### L 500.4050, L500.4100 ####[facility] [address] [place], [address] Triglyceride [Mass/Vol] 85 mg/dL Normal [facility] Comment on above: Result Comment: The drugs N-Acetylcysteine and Metamizole may falselydepress this assay.Serum Triglycerides Reference Interval Normal <150 mg/dL Borderline high 150 - 199 mg/dL High 200 - 499 mg/dL Very High > or = 500 mg/dL Performed By: #### L 500.4050, L500.4100 ####[facility] [address] [place], [address] Albumin to globulin ratioOrd ered By: Gilbert Hoang on 04-13-2024 Albumin/Globulin [Mass ratio] 1.1 {ratio} 0.9-2.4 [facility] Bilirubin, totalOrdered By: Gilbert Hoang on 04-13-2024 Bilirubin [Mass/Vol] 0.80 mg/dL 0.20-1.00 [facility] Comment on above: For patients on eltr ombopag therapy, use of Dimension [place] TBIL is not recommended. Blood urea nitrogen (BUN)/cr eatinine ratioOrdered By: Gilbert Hoang on 04-13-2024 Urea nitrogen/Creatinine [Mass ratio] 18.9 mg/mg 10-20 [facility] Carbon dioxide measurementOr dered By: Gilbert Hoang on 04-13-2024 CO2 [Moles/Vol] 30.0 mmol/L 21.0-32.0 [facility] Chloride measurementOrdered By: Gilbert Hoang on 04-13-2024 Chloride [Moles/Vol] 106 mmol/L 98-107 [facility] Estimated glomerular filtrat ion rate (GFR) AmericanOrdered By: Gilbert Hoang on 04-13-2024 Estimated GFR (MDRD) Amer 102 mL/min >60 [facility] Comment on above: GFR Calc Glomerular filtration rate ( GFR) estimationOrdered By: Gilbert Hoang on 04-13-2024 Estimated GFR (MDRD) Non-Af Amer 84 mL/min >60 [facility] Comment on above: Non- GFR Calc GFR/1.73 sq M.predicted among non-blacks MDRD (S/P/Bld) [Vol rate/Area] 84 mL/min/{1.73_m2} >60 [facility] Comment on above: Non- GFR Calc Glucose measurementOrdered B y: Gilbert Hoang on 04-13-2024 Glucose [Mass/Vol] 95 mg/dL 74-106 [facility] High density lipoprotein (HD L) measurementOrdered By: Gilbert Hoang on 04-13-2024 Cholesterol in HDL [Mass/Vol] 64 mg/dL >40 [facility] Comment on above: The drugs N-Acetylcy steine and Metamizole may falsely depress this assay. Reference Range HDL <40 mg/dL Low HDL Cholesterol HDL >or= 60 mg/dL High HDL Cholesterol Laboratory - Chemistry and C hemistry - challengeOrdered By: Gilbert Hoang on 04-13-2024 AST [Catalytic activity/Vol] 18 U/L 15-37 [facility] Low density lipoprotein (LDL ) cholesterol measurementOrdered By: Gilbert Hoang on 04-13-2024 Cholesterol in LDL [Mass/Vol] 56 mg/dL 0-130 [facility] Potassium measurementOrdered By: Gilbert Hoang on 04-13-2024 Potassium [Moles/Vol] 4.2 mmol/L 3.5-5.1 [facility] Serum anion gap measurementO rdered By: Gilbert Hoang on 04-13-2024 Anion gap [Moles/Vol] 5 mmol/L 5-15 [facility] Serum globulin measurementOr dered By: Gilbert Hoang on 04-13-2024 Globulin (S) [Mass/Vol] 3.5 g/dL 2.2-4.2 [facility] Serum or plasma alanine hollingsworth otransferase (ALT) measurementOrdered By: Gilbert Hoang on 04-13-2024 ALT [Catalytic activity/Vol] 27 U/L 16-61 [facility] Serum or plasma albumin leona urement (mass/volume)Ordered By: Gilbert Hoang on 04-13-2024 Albumin [Mass/Vol] 3.9 g/dL 3.2-5.0 [facility] Serum or plasma alkaline dorian sphatase measurementOrdered By: Gilbert Hoang on 04-13-2024 ALP [Catalytic activity/Vol] 81 U/L 45-117 [facility] Serum or plasma calcium leona urement (mass/volume)Ordered By: Gilbert Hoang on 04-13-2024 Calcium [Mass/Vol] 9.3 mg/dL 8.5-10.1 [facility] Serum or plasma cholesterol measurement (mass/volume)Ordered By: Gilbert Hoang on 04-13-2024 Cholesterol [Mass/Vol] 137 mg/dL <200 [facility] Comment on above: <200 mg/dL Desirable 200-240 mg/dL Borderline >240 mg/dL High Risk Serum or plasma creatinine m easurement (mass/volume)Ordered By: Gilbert Hoang on 04-13-2024 Creatinine [Mass/Vol] 0.95 mg/dL 0.70-1.30 [facility] Comment on above: The validity of the calculated GFR & GFRAA in patients over 70 years has not been determined. Clinical correlation is essential. Serum or plasma urea nitroge n measurement (mass/volume)Ordered By: Gilbert Hoang on 04-13-2024 Urea nitrogen [Mass/Vol] 18 mg/dL 7-18 [facility] Sodium levelOrdered By: Ramiro Hoang on 04-13-2024 Sodium [Moles/Vol] 141 mmol/L 136-145 [facility] Total proteinOrdered By: Christie Hoang on 04-13-2024 Protein [Mass/Vol] 7.4 g/dL 6.4-8.2 [facility] Triglycerides measurementOrd ered By: Gilbert Hoang on 04-13-2024 Triglyceride [Mass/Vol] 85 mg/dL <199 [facility] Comment on above: The drugs N-Acetylcy steine and Metamizole may falsely depress this assay.Serum Triglycerides Reference Interval Normal <150 mg/dL Borderline high 150 - 199 mg/dL High 200 - 499 mg/dL Very High > or = 500 mg/dL Very low density lipoprotein (VLDL) cholesterol measurementOrdered By: Gilbert Hoang on 04-13-2024 Very low density lipoprotein (VLDL) cholesterol measurement 17 mg/dL 5-40 [facility] VLDL Cholesterol 17 mg/dL 5-40 [facility] Cardiology Visit Reporton Cardiology Visit Report Normal [facility] Bilirubin Test strip Ql (U)O rdered By: Akbar Archuleta on 03-24-2024 Bilirubin Ql (U) Negative Negative [facility] Glucose Ql (U)Ordered By: Heidi Archuleta on 03-24-2024 Urine Glucose (UA) Normal mg/dl Normal [facility] Ketones Test strip Ql (U)Ord ered By: Akbar Archuleta on 03-24-2024 Ketones Ql (U) Negative Negative [facility] Nitrite Test strip Ql (U)Ord ered By: Akbar Archuleta on 03-24-2024 Nitrite Ql (U) Negative Negative [facility] Protein Test strip Ql (U)Ord ered By: Akbar Archuleta on 03-24-2024 Protein Ql (U) Negative Negative [facility] Urinalysis, Routine (Dipstic k)on 03-24-2024 BILIRUBIN URINE Negative Normal Negative [facility] Comment on above: Order Comment: Urine , Random Performed By: #### L 400.2010 ####[facility] [address] [place], [address] Clarity (U) Clear Normal Clear [facility] Comment on above: Order Comment: Urine , Random Performed By: #### L 400.2010 ####[facility] [address] [place], [address] Color (U) Yellow Normal Yellow [facility] Comment on above: Order Comment: Urine , Random Performed By: #### L 400.2010 ####[facility] [address] [place], [address] GLUCOSE, UR Normal Normal Normal [facility] Comment on above: Order Comment: Urine , Random Performed By: #### L 400.2010 ####[facility] [address] [place], [address] KETONE UR Negative Normal Negative [facility] Comment on above: Order Comment: Urine , Random Performed By: #### L 400.2010 ####[facility] [address] [place], [address] LEUK ESTERASE Negative Normal Negative [facility] Comment on above: Order Comment: Urine , Random Performed By: #### L 400.2010 ####[facility] [address] [place], [address] Nitrite Ql (U) Negative Normal Negative [facility] Comment on above: Order Comment: Urine , Random Performed By: #### L 400.2010 ####[facility] [address] [place], [address] OCCULT BLOOD-UR Negative Normal Negative [facility] Comment on above: Order Comment: Urine , Random Performed By: #### L 400.2010 ####[facility] [address] [place], [address] pH UR 5.0 Normal 5.0 - 8.0 [facility] Comment on above: Order Comment: Urine , Random Performed By: #### L 400.2010 ####[facility] [address] [place], [address] PROT DIPSTX Negative Normal Negative [facility] Comment on above: Order Comment: Urine , Random Performed By: #### L 400.2010 ####[facility] [address] [place], [place], [address] SP.GR. DIPSTX 1.025 Normal 1.002-1.030 [facility] Comment on above: Order Comment: Urine , Random Performed By: #### L 400.2010 ####[facility] [address] [place], [place], [address] UROBILI Normal Normal Normal [facility] Comment on above: Order Comment: Urine , Random Performed By: #### L 400.2010 ####[facility] [address] [place], [place], [id number] Urine blood detectionOrdered By: Akbar Archuleta on 03-24-2024 Urine Occult Blood Negative Negative [facility] Urine clarityOrdered By: Jeremias Archuleta on 03-24-2024 Clarity (U) Clear Clear [facility] Urine color determinationOrd ered By: Akbar Archuleta on 03-24-2024 Color (U) Yellow Yellow [facility] Urine glucose detectionOrder ed By: Akbar Archuleta on 03-24-2024 Glucose Ql (U) Normal mg/dl Normal [facility] Urine leukocyte esterase det ection by dipstickOrdered By: Akbar Archuleta on 03-24-2024 Leukocyte esterase Test strip Ql (U) Negative Negative [facility] Urine pHOrdered By: Akbar aggarwal on 03-24-2024 pH (U) 5.0 [pH] 5.0 - 8.0 [facility] Urine specific gravity measu rementOrdered By: Akbar Archuleta on 03-24-2024 Specific gravity (U) [Rel density] 1.025 1.002-1.030 [facility] Urine urobilinogen measureme ntOrdered By: Akbar Archuleta on 03-24-2024 Urobilinogen Ql (U) Normal mg/dl Normal [facility] Urobilinogen Ql (U)Ordered B y: Akbar Archuleta on 03-24-2024 Urine Urobilinogen Normal mg/dl Normal [facility] Neurology Visit Reporton Neurology Visit Report Normal [facility] Respiratory Cultureon 2024 RESPC Normal [facility] Comment on above: Performed By: #### M 100.1999, M100.2400 ####[facility] [address] [place], [place], [id number] Gram Stainon 03-09-2024 GS Acceptable Specimen? Yes (<25 Epithelial cells per/lpf) Gram Stain 3+ White Blood Cells 1+ Gram positive cocci 1+ Gram negative diplococci No Epithelial cells 1+ Gram positive rods Normal [facility] Comment on above: Performed By: #### M 100.1999, M100.2400 ####[facility] [address] [place], [place], [id number] Chest PA and Lateralon 03-08 Chest PA and Lateral Normal [facility] Emergency Department Summary on 03-08-2024 Emergency Department Summary Normal [facility] Gram stainOrdered By: Brigitte Randall on 03-08-2024 Microscopic observation Gram stain Nom (Unsp spec) [facility] Microscopic observation Gram stain Nom (Unsp spec) [facility] Influenza virus A and B and SARS-CoV-2 (COVID-19) and Respiratory syncytial virus RNAOrdered By: Ramos Randall on 03-08-2024 SARS-CoV-2 (COVID-19) RNA YOLY+probe Ql (Unsp spec) Influenzae A Abnormal [facility] SARS-CoV-2 (COVID-19) RNA YOLY+probe Ql (Unsp spec) Influenzae A Abnormal [facility] M100.678on 03-08-2024 M100.678 Normal [facility] Comment on above: Performed By: #### M 100.8 ####[facility] [address] [place], [place], [id number] Microbial respiratory cultur eOrdered By: Ramos Randall on 03-08-2024 Microorganism identified Cx Nom (Unsp spec) Stenotrophomonas maltophilia Abnormal [facility] Microorganism identified Cx Nom (Unsp spec) Moraxella Catarrhalis Abnormal [facility] Microorganism identified Cx Nom (Unsp spec) Streptococcus pneumoniae Abnormal [facility] Microorganism identified Cx Nom (Unsp spec)Ordered By: Ramos Randall on 03-08-2024 Respiratory Culture Stenotrophomonas maltophilia Abnormal [facility] Respiratory Culture Moraxella Catarrhalis Abnormal [facility] Respiratory Culture Streptococcus pneumoniae Abnormal [facility] Office Visit Reporton 2023 Office Visit Report Normal [facility] Office Visit Reporton 2023 Office Visit Report Normal [facility] Office Visit Reporton 2023 Office Visit Report Normal [facility] Neurology Visit Reporton Neurology Visit Report Normal [facility] Respiratory Cultureon 2023 RESPC Mixed normal respira tory bobbi. No Haemophilus, Streptococcus pneumoniae, beta-hemolytic Streptococcus or Staphylococcus aureus isolated. Normal [facility] Comment on above: Performed By: #### M 100.2400, M100.2000 ####[facility] [address] [place], [address] Discharge Instructionon 10-19 Discharge Instruction Normal [facility] Basic Metabolic Profile (BMP )on 11-01-2023 BUN/CRE 19.7 RATIO Normal 10-20 [facility] Comment on above: Performed By: #### L 100.0500, L500.2500 ####[facility] [address] [place], [address] CA,Total 8.5 mg/dL Normal 8.5-10.1 [facility] Comment on above: Performed By: #### L 100.0500, L500.2500 ####[facility] [address] [place], [address] Chloride [Moles/Vol] 107 mmol/L Normal 98-107 [facility] Comment on above: Performed By: #### L 100.0500, L500.2500 ####[facility] [address] [place], [address] CO2 [Moles/Vol] 27.0 mmol/L Normal 21.0-32.0 [facility] Comment on above: Performed By: #### L 100.0500, L500.2500 ####[facility] [address] [place], [address] Creatinine [Mass/Vol] 0.81 mg/dL Normal 0.70-1.30 [facility] Comment on above: Result Comment: The validity of the calculated GFR GFRAA in patients over70 years has not been determined. Clinical correlation isessential. Performed By: #### L 100.0500, L500.2500 ####[facility] [address] [place], [address] ECRCL 100.33 ml/min Normal [facility] Comment on above: Performed By: #### L 100.0500, L500.2500 ####[facility] [address] [place], [address] EST GFR - AA 123 mL/min Normal >60 [facility] Comment on above: Result Comment: Afri can Filipino GFR Calc Performed By: #### L 100.0500, L500.2500 ####[facility] [address] [place], [address] GAP 6 Normal 5-15 [facility] Comment on above: Performed By: #### L 100.0500, L500.2500 ####[facility] [address] [place], [address] GFR/1.73 sq M.predicted among non-blacks MDRD (S/P/Bld) [Vol rate/Area] 101 mL/min/{1.73_m2} Normal >60 [facility] Comment on above: Result Comment: Non- GFR Calc Performed By: #### L 100.0500, L500.2500 ####[facility] [address] [place], [address] Glucose [Mass/Vol] 100 mg/dL Normal 74-106 [facility] Comment on above: Result Comment: Fast ing Glucose result from 100 to 125 mg/dLsuggests IMPAIRED HOMEOSTASIS per A.D.A. criteria. Performed By: #### L 100.0500, L500.2500 ####[facility] [address] [place], [address] Potassium [Moles/Vol] 3.9 mmol/L Normal 3.5-5.1 [facility] Comment on above: Performed By: #### L 100.0500, L500.2500 ####[facility] [address] [place], [address] Sodium [Moles/Vol] 140 mmol/L Normal 136-145 [facility] Comment on above: Performed By: #### L 100.0500, L500.2500 ####[facility] [address] [place], [address] Urea nitrogen [Mass/Vol] 16 mg/dL Normal 7-18 [facility] Comment on above: Performed By: #### L 100.0500, L500.2500 ####[facility] [address] [place], [address] CBC[facility] Erythrocyte distribution width (RBC) [Ratio] 14.1 % Normal 11.6-14.6 [facility] Comment on above: Performed By: #### L 100.0500, L500.2500 ####[facility] [address] [place], [address] Hematocrit (Bld) [Volume fraction] 42.9 % Normal 40-54 [facility] Comment on above: Performed By: #### L 100.0500, L500.2500 ####[facility] [address] [place], [address] Hemoglobin (Bld) [Mass/Vol] 13.8 g/dL Normal 13.0-16.5 [facility] Comment on above: Performed By: #### L 100.0500, L500.2500 ####[facility] [address] [place], [address] MCH (RBC) [Entitic mass] 30.5 pg Normal 27.0-32.0 [facility] Comment on above: Performed By: #### L 100.0500, L500.2500 ####[facility] [address] [place], [address] MCHC (RBC) [Mass/Vol] 32.2 g/dL Normal 32-36 [facility] Comment on above: Performed By: #### L 100.0500, L500.2500 ####[facility] [address] [place], [address] MCV (RBC) [Entitic vol] 94.9 fL High 80-94 [facility] Comment on above: Performed By: #### L 100.0500, L500.2500 ####[facility] [address] [place], [address] Platelet mean volume (Bld) [Entitic vol] 11.6 fL Normal 6.2-12.0 [facility] Comment on above: Performed By: #### L 100.0500, L500.2500 ####[facility] [address] [place], [address] Platelets (Bld) [#/Vol] 196 10*3/uL Normal 150-450 [facility] Comment on above: Performed By: #### L 100.0500, L500.2500 ####[facility] [address] [place], [address] RBC (Bld) [#/Vol] 4.52 10*6/uL Low 4.6-6.2 [facility] Comment on above: Performed By: #### L 100.0500, L500.2500 ####[facility] [address] [place], [address] RDW SD 49.2 fl High 35.1-43.9 [facility] Comment on above: Performed By: #### L 100.0500, L500.2500 ####[facility] [address] [place], [address] WBC (Bld) [#/Vol] 8.2 10*3/uL Normal 4.4-11.0 [facility] Comment on above: Performed By: #### L 100.0500, L500.2500 ####[facility] [address] [place], [address] Basic Metabolic Profile (BMP )on 10-31-2023 BUN/CRE 19.1 RATIO Normal 10-20 [facility] Comment on above: Performed By: #### L 501.2300, L500.2500, L501.5200 ####[facility] [address] [place], [address] CA,Total 8.5 mg/dL Normal 8.5-10.1 [facility] Comment on above: Performed By: #### L 501.2300, L500.2500, L501.5200 ####[facility] [address] [place], [address] Chloride [Moles/Vol] 106 mmol/L Normal 98-107 [facility] Comment on above: Performed By: #### L 501.2300, L500.2500, L501.5200 ####[facility] [address] [place], [address] CO2 [Moles/Vol] 28.0 mmol/L Normal 21.0-32.0 [facility] Comment on above: Performed By: #### L 501.2300, L500.2500, L501.5200 ####[facility] [address] [place], [address] Creatinine [Mass/Vol] 0.78 mg/dL Normal 0.70-1.30 [facility] Comment on above: Result Comment: The validity of the calculated GFR GFRAA in patients over70 years has not been determined. Clinical correlation isessential. Performed By: #### L 501.2300, L500.2500, L501.5200 ####[facility] [address] [place], [address] ECRCL 100.81 ml/min Normal [facility] Comment on above: Performed By: #### L 501.2300, L500.2500, L501.5200 ####[facility] [address] [place], [address] EST GFR - AA 128 mL/min Normal >60 [facility] Comment on above: Result Comment: Afri can Filipino GFR Calc Performed By: #### L 501.2300, L500.2500, L501.5200 ####[facility] [address] [place], [address] GAP 3 Low 5-15 [facility] Comment on above: Performed By: #### L 501.2300, L500.2500, L501.5200 ####[facility] [address] [place], [address] GFR/1.73 sq M.predicted among non-blacks MDRD (S/P/Bld) [Vol rate/Area] 105 mL/min/{1.73_m2} Normal >60 [facility] Comment on above: Result Comment: Non- GFR Calc Performed By: #### L 501.2300, L500.2500, L501.5200 ####[facility] [address] [place], [address] Glucose [Mass/Vol] 116 mg/dL High 74-106 [facility] Comment on above: Result Comment: Fast ing Glucose result from 100 to 125 mg/dLsuggests IMPAIRED HOMEOSTASIS per A.D.A. criteria. Performed By: #### L 501.2300, L500.2500, L501.5200 ####[facility] [address] [place], [address] Potassium [Moles/Vol] 4.0 mmol/L Normal 3.5-5.1 [facility] Comment on above: Performed By: #### L 501.2300, L500.2500, L501.5200 ####[facility] [address] [place], [address] Sodium [Moles/Vol] 137 mmol/L Normal 136-145 [facility] Comment on above: Performed By: #### L 501.2300, L500.2500, L501.5200 ####[facility] [address] [place], [address] Urea nitrogen [Mass/Vol] 15 mg/dL Normal 7-18 [facility] Comment on above: Performed By: #### L 501.2300, L500.2500, L501.5200 ####[facility] [address] [place], [address] CBC W/Diff, Automatedon 10-19 2-2023 Absolute Lymph 1.25 X10 3/uL Normal 0.83-4.51 [facility] Comment on above: Performed By: #### L 100.0100 ####[facility] [address] [place], [address] Absolute Neut 7.7 X10 3/uL Normal 2.0-7.7 [facility] Comment on above: Performed By: #### L 100.0100 ####[facility] [address] [place], [address] Basophils/100 WBC (Bld) 0.2 % Normal 0-1 [facility] Comment on above: Performed By: #### L 100.0100 ####[facility] [address] [place], [address] Eosinophils/100 WBC (Bld) 0.9 % Normal 0-5 [facility] Comment on above: Performed By: #### L 100.0100 ####[facility] [address] [place], [address] Erythrocyte distribution width (RBC) [Ratio] 13.8 % Normal 11.6-14.6 [facility] Comment on above: Performed By: #### L 100.0100 ####[facility] [address] [place], [address] Hematocrit (Bld) [Volume fraction] 41.9 % Normal 40-54 [facility] Comment on above: Performed By: #### L 100.0100 ####[facility] [address] [place], [address] Hemoglobin (Bld) [Mass/Vol] 13.5 g/dL Normal 13.0-16.5 [facility] Comment on above: Performed By: #### L 100.0100 ####[facility] [address] [place], [address] IG% 0.700 Normal 0.0-0.9 [facility] Comment on above: Result Comment: IG% - Immature Granulocytes (promyelocytes, myelocytes andmetamyelocytes) > 1% indicates that a LEFT SHIFT is Present. Performed By: #### L 100.0100 ####[facility] [address] [place], [address] Lymphocytes/100 WBC (Bld) 12.8 % Low 19-41 [facility] Comment on above: Performed By: #### L 100.0100 ####[facility] [address] [place], [address] MCH (RBC) [Entitic mass] 30.7 pg Normal 27.0-32.0 [facility] Comment on above: Performed By: #### L 100.0100 ####[facility] [address] [place], [address] MCHC (RBC) [Mass/Vol] 32.2 g/dL Normal 32-36 [facility] Comment on above: Performed By: #### L 100.0100 ####[facility] [address] [place], [address] MCV (RBC) [Entitic vol] 95.2 fL High 80-94 [facility] Comment on above: Performed By: #### L 100.0100 ####[facility] [address] [place], [address] Monocytes/100 WBC (Bld) 6.7 % Normal 0-10 [facility] Comment on above: Performed By: #### L 100.0100 ####[facility] [address] [place], [address] Neutrophils/100 WBC (Bld) 78.7 % High 47-70 [facility] Comment on above: Performed By: #### L 100.0100 ####[facility] [address] [place], [address] Nucleated RBC (Bld) [#/Vol] 0 10*3/uL Normal 0-5 [facility] Comment on above: Performed By: #### L 100.0100 ####[facility] [address] [place], [address] Platelet mean volume (Bld) [Entitic vol] 11.0 fL Normal 6.2-12.0 [facility] Comment on above: Performed By: #### L 100.0100 ####[facility] [address] [place], [address] Platelets (Bld) [#/Vol] 198 10*3/uL Normal 150-450 [facility] Comment on above: Performed By: #### L 100.0100 ####[facility] [address] [place], [address] RBC (Bld) [#/Vol] 4.40 10*6/uL Low 4.6-6.2 [facility] Comment on above: Performed By: #### L 100.0100 ####[facility] [address] [place], [address] RDW SD 48.5 fl High 35.1-43.9 [facility] Comment on above: Performed By: #### L 100.0100 ####[facility] [address] [place], [address] WBC (Bld) [#/Vol] 9.7 10*3/uL Normal 4.4-11.0 [facility] Comment on above: Performed By: #### L 100.0100 ####[facility] [address] [place], [address] Magnesiumon 10-31-2023 Magnesium [Mass/Vol] 2.3 mg/dL Normal 1.6-2.6 [facility] Comment on above: Performed By: #### L 501.2300, L500.2500, L501.5200 ####[facility] [address] [place], [address] Phosphoruson 10-31-2023 Phosphate [Mass/Vol] 3.2 mg/dL Normal 2.5-4.9 [facility] Comment on above: Performed By: #### L 501.2300, L500.2500, L501.5200 ####[facility] [address] [place], [address] CBC W/Diff, Automatedon 10-19 Absolute Lymph 1.07 X10 3/uL Normal 0.83-4.51 [facility] Comment on above: Performed By: #### L 501.9520, L500.4050, L501.2300, L501.5200, L100.0100 ####[facility] [address] [place], [address] Absolute Neut 6.3 X10 3/uL Normal 2.0-7.7 [facility] Comment on above: Performed By: #### L 501.9520, L500.4050, L501.2300, L501.5200, L100.0100 ####[facility] [address] [place], [address] Basophils/100 WBC (Bld) 0.1 % Normal 0-1 [facility] Comment on above: Performed By: #### L 501.9520, L500.4050, L501.2300, L501.5200, L100.0100 ####[facility] [address] [place], [address] Eosinophils/100 WBC (Bld) 0.8 % Normal 0-5 [facility] Comment on above: Performed By: #### L 501.9520, L500.4050, L501.2300, L501.5200, L100.0100 ####[facility] [address] [place], [address] Erythrocyte distribution width (RBC) [Ratio] 13.8 % Normal 11.6-14.6 [facility] Comment on above: Performed By: #### L 501.9520, L500.4050, L501.2300, L501.5200, L100.0100 ####[facility] [address] [place], [address] Hematocrit (Bld) [Volume fraction] 40.8 % Normal 40-54 [facility] Comment on above: Performed By: #### L 501.9520, L500.4050, L501.2300, L501.5200, L100.0100 ####[facility] [address] [place], [address] Hemoglobin (Bld) [Mass/Vol] 13.2 g/dL Normal 13.0-16.5 [facility] Comment on above: Performed By: #### L 501.9520, L500.4050, L501.2300, L501.5200, L100.0100 ####[facility] [address] [place], [address] IG% 0.900 Normal 0.0-0.9 [facility] Comment on above: Result Comment: IG% - Immature Granulocytes (promyelocytes, myelocytes andmetamyelocytes) > 1% indicates that a LEFT SHIFT is Present. Performed By: #### L 501.9520, L500.4050, L501.2300, L501.5200, L100.0100 ####[facility] [address] [place], [address] Lymphocytes/100 WBC (Bld) 13.5 % Low 19-41 [facility] Comment on above: Performed By: #### L 501.9520, L500.4050, L501.2300, L501.5200, L100.0100 ####[facility] [address] [place], [address] MCH (RBC) [Entitic mass] 30.6 pg Normal 27.0-32.0 [facility] Comment on above: Performed By: #### L 501.9520, L500.4050, L501.2300, L501.5200, L100.0100 ####[facility] [address] [place], [address] MCHC (RBC) [Mass/Vol] 32.4 g/dL Normal 32-36 [facility] Comment on above: Performed By: #### L 501.9520, L500.4050, L501.2300, L501.5200, L100.0100 ####[facility] [address] [place], [address] MCV (RBC) [Entitic vol] 94.4 fL High 80-94 [facility] Comment on above: Performed By: #### L 501.9520, L500.4050, L501.2300, L501.5200, L100.0100 ####[facility] [address] [place], [address] Monocytes/100 WBC (Bld) 5.9 % Normal 0-10 [facility] Comment on above: Performed By: #### L 501.9520, L500.4050, L501.2300, L501.5200, L100.0100 ####[facility] [address] [place], [address] Neutrophils/100 WBC (Bld) 78.8 % High 47-70 [facility] Comment on above: Performed By: #### L 501.9520, L500.4050, L501.2300, L501.5200, L100.0100 ####[facility] [address] [place], [address] Nucleated RBC (Bld) [#/Vol] 0 10*3/uL Normal 0-5 [facility] Comment on above: Performed By: #### L 501.9520, L500.4050, L501.2300, L501.5200, L100.0100 ####[facility] [address] [place], [address] Platelet mean volume (Bld) [Entitic vol] 10.8 fL Normal 6.2-12.0 [facility] Comment on above: Performed By: #### L 501.9520, L500.4050, L501.2300, L501.5200, L100.0100 ####[facility] [address] [place], [address] Platelets (Bld) [#/Vol] 210 10*3/uL Normal 150-450 [facility] Comment on above: Performed By: #### L 501.9520, L500.4050, L501.2300, L501.5200, L100.0100 ####[facility] [address] [place], [address] RBC (Bld) [#/Vol] 4.32 10*6/uL Low 4.6-6.2 [facility] Comment on above: Performed By: #### L 501.9520, L500.4050, L501.2300, L501.5200, L100.0100 ####[facility] [address] [place], [address] RDW SD 47.9 fl High 35.1-43.9 [facility] Comment on above: Performed By: #### L 501.9520, L500.4050, L501.2300, L501.5200, L100.0100 ####[facility] [address] [place], [address] WBC (Bld) [#/Vol] 8.0 10*3/uL Normal 4.4-11.0 [facility] Comment on above: Performed By: #### L 501.9520, L500.4050, L501.2300, L501.5200, L100.0100 ####[facility] [address] [place], [address] [facility] 10-30-2023 Albumin [Mass/Vol] 2.8 g/dL Low 3.2-5.0 [facility] Comment on above: Performed By: #### L 501.9520, L500.4050, L501.2300, L501.5200, L100.0100 ####[facility] [address] [place], [address] Albumin/Globulin [Mass ratio] 1.0 {ratio} Normal 0.9-2.4 [facility] Comment on above: Performed By: #### L 501.9520, L500.4050, L501.2300, L501.5200, L100.0100 ####[facility] [address] [place], [address] ALK P 58 U/L Normal 45-117 [facility] Comment on above: Performed By: #### L 501.9520, L500.4050, L501.2300, L501.5200, L100.0100 ####[facility] [address] [place], [address] ALT [Catalytic activity/Vol] 12 U/L Low 16-61 [facility] Comment on above: Performed By: #### L 501.9520, L500.4050, L501.2300, L501.5200, L100.0100 ####[facility] [address] [place], [address] AST [Catalytic activity/Vol] 11 U/L Low 15-37 [facility] Comment on above: Performed By: #### L 501.9520, L500.4050, L501.2300, L501.5200, L100.0100 ####[facility] [address] [place], [address] Bilirubin [Mass/Vol] 1.00 mg/dL Normal 0.20-1.00 [facility] Comment on above: Result Comment: For patients on eltrombopag therapy, use of Dimension [place] TBIL is not recommended. Performed By: #### L 501.9520, L500.4050, L501.2300, L501.5200, L100.0100 ####[facility] [address] [place], [address] BUN/CRE 25.1 RATIO High 10-20 [facility] Comment on above: Performed By: #### L 501.9520, L500.4050, L501.2300, L501.5200, L100.0100 ####[facility] [address] [place], [address] CA,Total 8.3 mg/dL Low 8.5-10.1 [facility] Comment on above: Performed By: #### L 501.9520, L500.4050, L501.2300, L501.5200, L100.0100 ####[facility] [address] [place], [address] Chloride [Moles/Vol] 106 mmol/L Normal 98-107 [facility] Comment on above: Performed By: #### L 501.9520, L500.4050, L501.2300, L501.5200, L100.0100 ####[facility] [address] [place], [address] CO2 [Moles/Vol] 26.0 mmol/L Normal 21.0-32.0 [facility] Comment on above: Performed By: #### L 501.9520, L500.4050, L501.2300, L501.5200, L100.0100 ####[facility] [address] [place], [address] Creatinine [Mass/Vol] 0.84 mg/dL Normal 0.70-1.30 [facility] Comment on above: Result Comment: The validity of the calculated GFR GFRAA in patients over70 years has not been determined. Clinical correlation isessential. Performed By: #### L 501.9520, L500.4050, L501.2300, L501.5200, L100.0100 ####[facility] [address] [place], [address] ECRCL 87.67 ml/min Normal [facility] Comment on above: Performed By: #### L 501.9520, L500.4050, L501.2300, L501.5200, L100.0100 ####[facility] [address] [place], [address] EST GFR - AA 118 mL/min Normal >60 [facility] Comment on above: Result Comment: Afri can Filipino GFR Calc Performed By: #### L 501.9520, L500.4050, L501.2300, L501.5200, L100.0100 ####[facility] [address] [place], [address] GAP 5 Normal 5-15 [facility] Comment on above: Performed By: #### L 501.9520, L500.4050, L501.2300, L501.5200, L100.0100 ####[facility] [address] [place], [address] GFR/1.73 sq M.predicted among non-blacks MDRD (S/P/Bld) [Vol rate/Area] 98 mL/min/{1.73_m2} Normal >60 [facility] Comment on above: Result Comment: Non- GFR Calc Performed By: #### L 501.9520, L500.4050, L501.2300, L501.5200, L100.0100 ####[facility] [address] [place], [address] Globulin (S) [Mass/Vol] 2.9 g/dL Normal 2.2-4.2 [facility] Comment on above: Performed By: #### L 501.9520, L500.4050, L501.2300, L501.5200, L100.0100 ####[facility] [address] [place], [address] Glucose [Mass/Vol] 106 mg/dL Normal 74-106 [facility] Comment on above: Result Comment: Fast ing Glucose result from 100 to 125 mg/dLsuggests IMPAIRED HOMEOSTASIS per A.D.A. criteria. Performed By: #### L 501.9520, L500.4050, L501.2300, L501.5200, L100.0100 ####[facility] [address] [place], [address] Potassium [Moles/Vol] 4.1 mmol/L Normal 3.5-5.1 [facility] Comment on above: Performed By: #### L 501.9520, L500.4050, L501.2300, L501.5200, L100.0100 ####[facility] [address] [place], [address] Sodium [Moles/Vol] 137 mmol/L Normal 136-145 [facility] Comment on above: Performed By: #### L 501.9520, L500.4050, L501.2300, L501.5200, L100.0100 ####[facility] [address] [place], [address] T PROT 5.7 g/dL Low 6.4-8.2 [facility] Comment on above: Performed By: #### L 501.9520, L500.4050, L501.2300, L501.5200, L100.0100 ####[facility] [address] [place], [address] Urea nitrogen [Mass/Vol] 21 mg/dL High 7-18 [facility] Comment on above: Performed By: #### L 501.9520, L500.4050, L501.2300, L501.5200, L100.0100 ####[facility] [address] [place], [address] Magnesiumon 10-30-2023 Magnesium [Mass/Vol] 2.2 mg/dL Normal 1.6-2.6 [facility] Comment on above: Performed By: #### L 501.9520, L500.4050, L501.2300, L501.5200, L100.0100 ####[facility] [address] [place], [address] Phosphoruson 10-30-2023 Phosphate [Mass/Vol] 3.9 mg/dL Normal 2.5-4.9 [facility] Comment on above: Performed By: #### L 501.9520, L500.4050, L501.2300, L501.5200, L100.0100 ####[facility] [address] [place], [address] Thyroid Stim Hormone (TSH)on 10-30-2023 TSH 1.300 uIU/mL Normal 0.358-3.740 [facility] Comment on above: Performed By: #### L 501.9520, L500.4050, L501.2300, L501.5200, L100.0100 ####[facility] [address] [place], [address] Basic Metabolic Profile (BMP )on 10-29-2023 BUN/CRE 26.7 RATIO High 10-20 [facility] Comment on above: Performed By: #### L 500.2500, L100.0100 ####[facility] [address] [place], [address] CA,Total 8.7 mg/dL Normal 8.5-10.1 [facility] Comment on above: Performed By: #### L 500.2500, L100.0100 ####[facility] [address] [place], [address] Chloride [Moles/Vol] 103 mmol/L Normal 98-107 [facility] Comment on above: Performed By: #### L 500.2500, L100.0100 ####[facility] [address] [place], [address] CO2 [Moles/Vol] 31.0 mmol/L Normal 21.0-32.0 [facility] Comment on above: Performed By: #### L 500.2500, L100.0100 ####[facility] [address] [place], [address] Creatinine [Mass/Vol] 1.16 mg/dL Normal 0.70-1.30 [facility] Comment on above: Result Comment: The validity of the calculated GFR GFRAA in patients over70 years has not been determined. Clinical correlation isessential. Performed By: #### L 500.2500, L100.0100 ####[facility] [address] [place], [address] EST GFR - AA 81 mL/min Normal >60 [facility] Comment on above: Result Comment: Afri can Filipino GFR Calc Performed By: #### L 500.2500, L100.0100 ####[facility] [address] [place], [address] GAP 5 Normal 5-15 [facility] Comment on above: Performed By: #### L 500.2500, L100.0100 ####[facility] [address] [place], [address] GFR/1.73 sq M.predicted among non-blacks MDRD (S/P/Bld) [Vol rate/Area] 67 mL/min/{1.73_m2} Normal >60 [facility] Comment on above: Result Comment: Non- GFR Calc Performed By: #### L 500.2500, L100.0100 ####[facility] [address] [place], [address] Glucose [Mass/Vol] 112 mg/dL High 74-106 [facility] Comment on above: Result Comment: Fast ing Glucose result from 100 to 125 mg/dLsuggests IMPAIRED HOMEOSTASIS per A.D.A. criteria. Performed By: #### L 500.2500, L100.0100 ####[facility] [address] [place], [address] Potassium [Moles/Vol] 3.9 mmol/L Normal 3.5-5.1 [facility] Comment on above: Performed By: #### L 500.2500, L100.0100 ####[facility] [address] [place], [address] Sodium [Moles/Vol] 139 mmol/L Normal 136-145 [facility] Comment on above: Performed By: #### L 500.2500, L100.0100 ####[facility] [address] [place], [address] Urea nitrogen [Mass/Vol] 31 mg/dL High 7-18 [facility] Comment on above: Performed By: #### L 500.2500, L100.0100 ####[facility] [address] [place], [address] CBC W/Diff, Automatedon 10-19 0-2023 Absolute Lymph 2.07 X10 3/uL Normal 0.83-4.51 [facility] Comment on above: Performed By: #### L 500.2500, L100.0100 ####[facility] [address] [place], [address] Absolute Neut 6.8 X10 3/uL Normal 2.0-7.7 [facility] Comment on above: Performed By: #### L 500.2500, L100.0100 ####[facility] [address] [place], [address] Basophils/100 WBC (Bld) 0.3 % Normal 0-1 [facility] Comment on above: Performed By: #### L 500.2500, L100.0100 ####[facility] [address] [place], [address] Eosinophils/100 WBC (Bld) 1.5 % Normal 0-5 [facility] Comment on above: Performed By: #### L 500.2500, L100.0100 ####[facility] [address] [place], [address] Erythrocyte distribution width (RBC) [Ratio] 13.7 % Normal 11.6-14.6 [facility] Comment on above: Performed By: #### L 500.2500, L100.0100 ####[facility] [address] [place], [address] Hematocrit (Bld) [Volume fraction] 43.9 % Normal 40-54 [facility] Comment on above: Performed By: #### L 500.2500, L100.0100 ####[facility] [address] [place], [address] Hemoglobin (Bld) [Mass/Vol] 14.2 g/dL Normal 13.0-16.5 [facility] Comment on above: Performed By: #### L 500.2500, L100.0100 ####[facility] [address] [place], [address] IG% 0.700 Normal 0.0-0.9 [facility] Comment on above: Result Comment: IG% - Immature Granulocytes (promyelocytes, myelocytes andmetamyelocytes) > 1% indicates that a LEFT SHIFT is Present. Performed By: #### L 500.2500, L100.0100 ####[facility] [address] [place], [address] Lymphocytes/100 WBC (Bld) 20.7 % Normal 19-41 [facility] Comment on above: Performed By: #### L 500.2500, L100.0100 ####[facility] [address] [place], [address] MCH (RBC) [Entitic mass] 30.4 pg Normal 27.0-32.0 [facility] Comment on above: Performed By: #### L 500.2500, L100.0100 ####[facility] [address] [place], [address] MCHC (RBC) [Mass/Vol] 32.3 g/dL Normal 32-36 [facility] Comment on above: Performed By: #### L 500.2500, L100.0100 ####[facility] [address] [place], [address] MCV (RBC) [Entitic vol] 94.0 fL Normal 80-94 [facility] Comment on above: Performed By: #### L 500.2500, L100.0100 ####[facility] [address] [place], [address] Monocytes/100 WBC (Bld) 9.0 % Normal 0-10 [facility] Comment on above: Performed By: #### L 500.2500, L100.0100 ####[facility] [address] [place], [address] Neutrophils/100 WBC (Bld) 67.8 % Normal 47-70 [facility] Comment on above: Performed By: #### L 500.2500, L100.0100 ####[facility] [address] [place], [address] Nucleated RBC (Bld) [#/Vol] 0 10*3/uL Normal 0-5 [facility] Comment on above: Performed By: #### L 500.2500, L100.0100 ####[facility] [address] [place], [address] Platelet mean volume (Bld) [Entitic vol] 11.2 fL Normal 6.2-12.0 [facility] Comment on above: Performed By: #### L 500.2500, L100.0100 ####[facility] [address] [place], [address] Platelets (Bld) [#/Vol] 211 10*3/uL Normal 150-450 [facility] Comment on above: Performed By: #### L 500.2500, L100.0100 ####[facility] [address] [place], [address] RBC (Bld) [#/Vol] 4.67 10*6/uL Normal 4.6-6.2 [facility] Comment on above: Performed By: #### L 500.2500, L100.0100 ####[facility] [address] [place], [address] RDW SD 47.4 fl High 35.1-43.9 [facility] Comment on above: Performed By: #### L 500.2500, L100.0100 ####[facility] [address] [place], [address] WBC (Bld) [#/Vol] 10.0 10*3/uL Normal 4.4-11.0 [facility] Comment on above: Performed By: #### L 500.2500, L100.0100 ####[facility] [address] [place], [address] CORTISOL SERUMon 10-29-2023 CORTISOL 5.00 ug/dL Normal 3.44-22.45 [facility] Comment on above: Result Comment: Adul t (AM) 5.27 - 22.45 ug/dL Adult (PM) 3.44 - 16.76 ug/dL Performed By: #### L 509.6000 ####[facility] [address] [place], [address] Chest PA and Lateralon 10-28 Chest PA and Lateral Normal [facility] Emergency Department Summary on 10-29-2023 Emergency Department Summary Normal [facility] H AND P Exam - Hospitaliston 10-29-2023 H&P Exam - Hospitalist Normal [facility] Lactic Acidon 10-29-2023 Lactate [Moles/Vol] 1.8 mmol/L Normal 0.4-1.9 [facility] Comment on above: Order Comment: Y Performed By: #### L 503.6005 ####[facility] [address] [place], [address] Urine Cultureon 10-29-2023 URC Culture exhibits no growth. Normal [facility] Comment on above: Performed By: #### M 100.2200, L400.0001 ####[facility] [address] [place], [address] Emergency Department Summary on 10-28-2023 Emergency Department Summary Normal [facility] Kidney and Bladderon 024 Kidney and Bladder Normal [facility] Urinalysis, Completeon 10-27 BILIRUBIN URINE Negative Normal Negative [facility] Comment on above: Order Comment: COLLE CTOR TO SPECIFY Performed By: #### M 100.2200, L400.0001 ####[facility] [address] [place], [address] Clarity (U) Clear Normal Clear [facility] Comment on above: Order Comment: XAVIER CTOR TO SPECIFY Performed By: #### M 100.2200, L400.0001 ####[facility] [address] [place], [address] Color (U) Yellow Normal Yellow [facility] Comment on above: Order Comment: XAVIER CTOR TO SPECIFY Performed By: #### M 100.2200, L400.0001 ####[facility] [address] [place], [address] GLUCOSE, UR Normal Normal Normal [facility] Comment on above: Order Comment: XAVIER CTOR TO SPECIFY Performed By: #### M 100.2200, L400.0001 ####[facility] [address] [place], [address] KETONE UR Negative Normal Negative [facility] Comment on above: Order Comment: XAVIER CTOR TO SPECIFY Performed By: #### M 100.2200, L400.0001 ####[facility] [address] [place], [address] LEUK ESTERASE Negative Normal Negative [facility] Comment on above: Order Comment: XAVIER CTOR TO SPECIFY Performed By: #### M 100.2200, L400.0001 ####[facility] [address] [place], [address] Nitrite Ql (U) Negative Normal Negative [facility] Comment on above: Order Comment: XAVIER CTOR TO SPECIFY Performed By: #### M 100.2200, L400.0001 ####[facility] [address] [place], [address] OCCULT BLOOD-UR Negative Normal Negative [facility] Comment on above: Order Comment: XAVIER CTOR TO SPECIFY Performed By: #### M 100.2200, L400.0001 ####[facility] [address] [place], [address] pH UR 6.0 Normal 5.0 - 8.0 [facility] Comment on above: Order Comment: XAVIER CTOR TO SPECIFY Performed By: #### M 100.2200, L400.0001 ####[facility] [address] [place], [address] PROT DIPSTX Negative Normal Negative [facility] Comment on above: Order Comment: XAVIER CTOR TO SPECIFY Performed By: #### M 100.2200, L400.0001 ####[facility] [address] [place], [address] SP.GR. DIPSTX 1.015 Normal 1.002-1.030 [facility] Comment on above: Order Comment: XAVIER CTOR TO SPECIFY Performed By: #### M 100.2200, L400.0001 ####[facility] [address] [place], [address] UROBILI Normal Normal Normal [facility] Comment on above: Order Comment: XAVIER CTOR TO SPECIFY Performed By: #### M 100.2200, L400.0001 ####[facility] [address] [place], [address] BACTERIA 0 SEEN Normal None Seen [facility] Comment on above: Order Comment: XAVIER CTOR TO SPECIFY Performed By: #### M 100.2200, L400.0001 ####[facility] [address] [place], [address] EPI,SQUAMOUS 0 SEEN Normal 0-5 [facility] Comment on above: Order Comment: COLLE CTOR TO SPECIFY Performed By: #### M 100.2200, L400.0001 ####[facility] [address] [place], [address] Mucus Ql (Urine sed) 0 SEEN Normal [facility] Comment on above: Order Comment: COLLE CTOR TO SPECIFY Performed By: #### M 100.2200, L400.0001 ####[facility] [address] [place], [address] RBC 0 SEEN Normal 0-5 [facility] Comment on above: Order Comment: COLLE CTOR TO SPECIFY Performed By: #### M 100.2200, L400.0001 ####[facility] [address] [place], [address] WBC 0 SEEN Normal 0-5 [facility] Comment on above: Order Comment: COLLE CTOR TO SPECIFY Performed By: #### M 100.2200, L400.0001 ####[facility] [address] [place], [address] Urine Cultureon 10-28-2023 URC Susceptibility not normally performed on this organism. [place] odontolyticus [place] Count <1000 Corynebacterium jeikeium [place] Count <1000 Corynebacterium species [place] Count <1000 Normal [facility] Comment on above: Performed By: #### M 100.2200 ####[facility] [address] [place], [address] Culture, Blood (WB)on 2023 CUB No growth in 5 days. Normal [facility] Comment on above: Performed By: #### M 200.1000 ####[facility] [address] [place], [address] Basic Metabolic Profile (BMP )on 10-23-2023 BUN/CRE 24.5 RATIO High 10-20 [facility] Comment on above: Performed By: #### L 100.0500, L500.2500 ####[facility] [address] [place], [address] CA,Total 9.0 mg/dL Normal 8.5-10.1 [facility] Comment on above: Performed By: #### L 100.0500, L500.2500 ####[facility] [address] [place], [address] Chloride [Moles/Vol] 103 mmol/L Normal 98-107 [facility] Comment on above: Performed By: #### L 100.0500, L500.2500 ####[facility] [address] [place], [address] CO2 [Moles/Vol] 29.0 mmol/L Normal 21.0-32.0 [facility] Comment on above: Performed By: #### L 100.0500, L500.2500 ####[facility] [address] [place], [address] Creatinine [Mass/Vol] 0.98 mg/dL Normal 0.70-1.30 [facility] Comment on above: Result Comment: The validity of the calculated GFR GFRAA in patients over70 years has not been determined. Clinical correlation isessential. Performed By: #### L 100.0500, L500.2500 ####[facility] [address] [place], [address] ECRCL 82.08 ml/min Normal [facility] Comment on above: Performed By: #### L 100.0500, L500.2500 ####[facility] [address] [place], [address] EST GFR - AA 99 mL/min Normal >60 [facility] Comment on above: Result Comment: Afri can Filipino GFR Calc Performed By: #### L 100.0500, L500.2500 ####[facility] [address] [place], [address] GAP 6 Normal 5-15 [facility] Comment on above: Performed By: #### L 100.0500, L500.2500 ####[facility] [address] [place], [address] GFR/1.73 sq M.predicted among non-blacks MDRD (S/P/Bld) [Vol rate/Area] 81 mL/min/{1.73_m2} Normal >60 [facility] Comment on above: Result Comment: Non- GFR Calc Performed By: #### L 100.0500, L500.2500 ####[facility] [address] [place], [address] Glucose [Mass/Vol] 106 mg/dL Normal 74-106 [facility] Comment on above: Result Comment: Fast ing Glucose result from 100 to 125 mg/dLsuggests IMPAIRED HOMEOSTASIS per A.D.A. criteria. Performed By: #### L 100.0500, L500.2500 ####[facility] [address] [place], [address] Potassium [Moles/Vol] 3.7 mmol/L Normal 3.5-5.1 [facility] Comment on above: Performed By: #### L 100.0500, L500.2500 ####[facility] [address] [place], [address] Sodium [Moles/Vol] 138 mmol/L Normal 136-145 [facility] Comment on above: Performed By: #### L 100.0500, L500.2500 ####[facility] [address] [place], [address] Urea nitrogen [Mass/Vol] 24 mg/dL High 7-18 [facility] Comment on above: Performed By: #### L 100.0500, L500.2500 ####[facility] [address] [place], [address] CBC-Complete Blood Cnt No Di ffon 10-23-2023 Erythrocyte distribution width (RBC) [Ratio] 14.1 % Normal 11.6-14.6 [facility] Comment on above: Performed By: #### L 100.0500, L500.2500 ####[facility] [address] [place], [address] Hematocrit (Bld) [Volume fraction] 41.5 % Normal 40-54 [facility] Comment on above: Performed By: #### L 100.0500, L500.2500 ####[facility] [address] [place], [address] Hemoglobin (Bld) [Mass/Vol] 13.3 g/dL Normal 13.0-16.5 [facility] Comment on above: Performed By: #### L 100.0500, L500.2500 ####[facility] [address] [place], [address] MCH (RBC) [Entitic mass] 30.6 pg Normal 27.0-32.0 [facility] Comment on above: Performed By: #### L 100.0500, L500.2500 ####[facility] [address] [place], [address] MCHC (RBC) [Mass/Vol] 32.0 g/dL Normal 32-36 [facility] Comment on above: Performed By: #### L 100.0500, L500.2500 ####[facility] [address] [place], [address] MCV (RBC) [Entitic vol] 95.4 fL High 80-94 [facility] Comment on above: Performed By: #### L 100.0500, L500.2500 ####[facility] [address] [place], [address] Platelet mean volume (Bld) [Entitic vol] 11.3 fL Normal 6.2-12.0 [facility] Comment on above: Performed By: #### L 100.0500, L500.2500 ####[facility] [address] [place], [address] Platelets (Bld) [#/Vol] 184 10*3/uL Normal 150-450 [facility] Comment on above: Performed By: #### L 100.0500, L500.2500 ####[facility] [address] [place], [address] RBC (Bld) [#/Vol] 4.35 10*6/uL Low 4.6-6.2 [facility] Comment on above: Performed By: #### L 100.0500, L500.2500 ####[facility] [address] [place], [address] RDW SD 50.4 fl High 35.1-43.9 [facility] Comment on above: Performed By: #### L 100.0500, L500.2500 ####[facility] [address] [place], [address] WBC (Bld) [#/Vol] 7.7 10*3/uL Normal 4.4-11.0 [facility] Comment on above: Performed By: #### L 100.0500, L500.2500 ####[facility] [address] [place], [address] Abdomen/Pelvis W IV Cont ONL Yon 10-22-2023 Abdomen/Pelvis W IV Cont ONLY Normal [facility] Basic Metabolic Profile (BMP )on 10-22-2023 BUN/CRE 21.7 RATIO High 10-20 [facility] Comment on above: Performed By: #### L 501.9520, L500.2500, L100.0100 ####[facility] [address] [place], [address] CA,Total 8.8 mg/dL Normal 8.5-10.1 [facility] Comment on above: Performed By: #### L 501.9520, L500.2500, L100.0100 ####[facility] [address] [place], [address] Chloride [Moles/Vol] 101 mmol/L Normal 98-107 [facility] Comment on above: Performed By: #### L 501.9520, L500.2500, L100.0100 ####[facility] [address] [place], [address] CO2 [Moles/Vol] 29.0 mmol/L Normal 21.0-32.0 [facility] Comment on above: Performed By: #### L 501.9520, L500.2500, L100.0100 ####[facility] [address] [place], [address] Creatinine [Mass/Vol] 1.15 mg/dL Normal 0.70-1.30 [facility] Comment on above: Result Comment: The validity of the calculated GFR GFRAA in patients over70 years has not been determined. Clinical correlation isessential. Performed By: #### L 501.9520, L500.2500, L100.0100 ####[facility] [address] [place], [address] ECRCL 69.95 ml/min Normal [facility] Comment on above: Performed By: #### L 501.9520, L500.2500, L100.0100 ####[facility] [address] [place], [address] EST GFR - AA 82 mL/min Normal >60 [facility] Comment on above: Result Comment: Afri can Filipino GFR Calc Performed By: #### L 501.9520, L500.2500, L100.0100 ####[facility] [address] [place], [address] GAP 5 Normal 5-15 [facility] Comment on above: Performed By: #### L 501.9520, L500.2500, L100.0100 ####[facility] [address] [place], [address] GFR/1.73 sq M.predicted among non-blacks MDRD (S/P/Bld) [Vol rate/Area] 68 mL/min/{1.73_m2} Normal >60 [facility] Comment on above: Result Comment: Non- GFR Calc Performed By: #### L 501.9520, L500.2500, L100.0100 ####[facility] [address] [place], [address] Glucose [Mass/Vol] 120 mg/dL High 74-106 [facility] Comment on above: Result Comment: Fast ing Glucose result from 100 to 125 mg/dLsuggests IMPAIRED HOMEOSTASIS per A.D.A. criteria. Performed By: #### L 501.9520, L500.2500, L100.0100 ####[facility] [address] [place], [address] Potassium [Moles/Vol] 4.3 mmol/L Normal 3.5-5.1 [facility] Comment on above: Performed By: #### L 501.9520, L500.2500, L100.0100 ####[facility] [address] [place], [address] Sodium [Moles/Vol] 135 mmol/L Low 136-145 [facility] Comment on above: Performed By: #### L 501.9520, L500.2500, L100.0100 ####[facility] [address] [place], [address] Urea nitrogen [Mass/Vol] 25 mg/dL High 7-18 [facility] Comment on above: Performed By: #### L 501.9520, L500.2500, L100.0100 ####[facility] [address] [place], [address] CBC W/Diff, Automatedon 09-0 3-4 Absolute Lymph 0.85 X10 3/uL Normal 0.83-4.51 [facility] Comment on above: Performed By: #### L 501.9520, L500.2500, L100.0100 ####[facility] [address] [place], [address] Absolute Neut 5.9 X10 3/uL Normal 2.0-7.7 [facility] Comment on above: Performed By: #### L 501.9520, L500.2500, L100.0100 ####[facility] [address] [place], [address] Basophils/100 WBC (Bld) 0.1 % Normal 0-1 [facility] Comment on above: Performed By: #### L 501.9520, L500.2500, L100.0100 ####[facility] [address] [place], [address] Eosinophils/100 WBC (Bld) 0.0 % Normal 0-5 [facility] Comment on above: Performed By: #### L 501.9520, L500.2500, L100.0100 ####[facility] [address] [place], [address] Erythrocyte distribution width (RBC) [Ratio] 14.2 % Normal 11.6-14.6 [facility] Comment on above: Performed By: #### L 501.9520, L500.2500, L100.0100 ####[facility] [address] [place], [address] Hematocrit (Bld) [Volume fraction] 41.8 % Normal 40-54 [facility] Comment on above: Performed By: #### L 501.9520, L500.2500, L100.0100 ####[facility] [address] [place], [address] Hemoglobin (Bld) [Mass/Vol] 13.5 g/dL Normal 13.0-16.5 [facility] Comment on above: Performed By: #### L 501.9520, L500.2500, L100.0100 ####[facility] [address] [place], [address] IG% 0.300 Normal 0.0-0.9 [facility] Comment on above: Result Comment: IG% - Immature Granulocytes (promyelocytes, myelocytes andmetamyelocytes) > 1% indicates that a LEFT SHIFT is Present. Performed By: #### L 501.9520, L500.2500, L100.0100 ####[facility] [address] [place], [address] Lymphocytes/100 WBC (Bld) 12.2 % Low 19-41 [facility] Comment on above: Performed By: #### L 501.9520, L500.2500, L100.0100 ####[facility] [address] [place], [address] MCH (RBC) [Entitic mass] 30.8 pg Normal 27.0-32.0 [facility] Comment on above: Performed By: #### L 501.9520, L500.2500, L100.0100 ####[facility] [address] [place], [address] MCHC (RBC) [Mass/Vol] 32.3 g/dL Normal 32-36 [facility] Comment on above: Performed By: #### L 501.9520, L500.2500, L100.0100 ####[facility] [address] [place], [address] MCV (RBC) [Entitic vol] 95.2 fL High 80-94 [facility] Comment on above: Performed By: #### L 501.9520, L500.2500, L100.0100 ####[facility] [address] [place], [address] Monocytes/100 WBC (Bld) 2.7 % Normal 0-10 [facility] Comment on above: Performed By: #### L 501.9520, L500.2500, L100.0100 ####[facility] [address] [place], [address] Neutrophils/100 WBC (Bld) 84.7 % High 47-70 [facility] Comment on above: Performed By: #### L 501.9520, L500.2500, L100.0100 ####[facility] [address] [place], [address] Nucleated RBC (Bld) [#/Vol] 0 10*3/uL Normal 0-5 [facility] Comment on above: Performed By: #### L 501.9520, L500.2500, L100.0100 ####[facility] [address] [place], [address] Platelet mean volume (Bld) [Entitic vol] 10.8 fL Normal 6.2-12.0 [facility] Comment on above: Performed By: #### L 501.9520, L500.2500, L100.0100 ####[facility] [address] [place], [address] Platelets (Bld) [#/Vol] 185 10*3/uL Normal 150-450 [facility] Comment on above: Performed By: #### L 501.9520, L500.2500, L100.0100 ####[facility] [address] [place], [address] RBC (Bld) [#/Vol] 4.39 10*6/uL Low 4.6-6.2 [facility] Comment on above: Performed By: #### L 501.9520, L500.2500, L100.0100 ####[facility] [address] [place], [address] RDW SD 50.3 fl High 35.1-43.9 [facility] Comment on above: Performed By: #### L 501.9520, L500.2500, L100.0100 ####[facility] [address] [place], [address] WBC (Bld) [#/Vol] 7.0 10*3/uL Normal 4.4-11.0 [facility] Comment on above: Performed By: #### L 501.9520, L500.2500, L100.0100 ####[facility] [address] [place], [address] Chest PA and Lateralon 10-21 Chest PA and Lateral Normal [facility] Emergency Department Summary on 10-22-2023 Emergency Department Summary Normal [facility] M100.678on 10-22-2023 M100.678 Normal [facility] Comment on above: Performed By: #### M 100.678, L400.0001 ####[facility] [address] [place], [address] T4 Free Directon 10-22-2023 T4 FREE DIRECT 1.31 ng/dL Normal 0.76-1.46 [facility] Comment on above: Performed By: #### L 506.0400 ####[facility] [address] [place], [address] Thyroid Stim Hormone (TSH)on 10-22-2023 TSH 0.168 uIU/mL Low 0.358-3.740 [facility] Comment on above: Performed By: #### L 501.9520, L500.2500, L100.0100 ####[facility] [address] [place], [address] Urinalysis, Completeon 10-21 BACTERIA 1+ /hpf Normal None Seen [facility] Comment on above: Order Comment: COLOR OF URINE MAY AFFECT DIPSTICK RESULTS.BLADDER TAP Performed By: #### M 100.678, L400.0001 ####[facility] [address] [place], [address] CAST,FINE GRAN 0-5 SEEN Normal 0-5 [facility] Comment on above: Order Comment: COLOR OF URINE MAY AFFECT DIPSTICK RESULTS.BLADDER TAP Performed By: #### M 100.678, L400.0001 ####[facility] [address] [place], [address] CAST,HYALINE 5-10 SEEN Normal 0-[address] [place] [address] Comment on above: Order Comment: COLOR OF URINE MAY AFFECT DIPSTICK RESULTS.BLADDER TAP Performed By: #### M 100.678, L400.0001 ####[facility] [address] [place], [address] EPI,SQUAMOUS 0-5 SEEN Normal 0-5 [facility] Comment on above: Order Comment: COLOR OF URINE MAY AFFECT DIPSTICK RESULTS.BLADDER TAP Performed By: #### M 100.678, L400.0001 ####[facility] [address] [place], [address] Mucus Ql (Urine sed) 1+ /hpf Normal [facility] Comment on above: Order Comment: COLOR OF URINE MAY AFFECT DIPSTICK RESULTS.BLADDER TAP Performed By: #### M 100.678, L400.0001 ####[facility] [address] [place], [address] RBC > 100 SEEN Normal 0-5 [facility] Comment on above: Order Comment: COLOR OF URINE MAY AFFECT DIPSTICK RESULTS.BLADDER TAP Performed By: #### M 100.678, L400.0001 ####[facility] [address] [place], [address] WBC 10-25 SEEN Normal 0-5 [facility] Comment on above: Order Comment: COLOR OF URINE MAY AFFECT DIPSTICK RESULTS.BLADDER TAP Performed By: #### M 100.678, L400.0001 ####[facility] [address] [place], [address] BNP,B-Type NATRIURETIC PEPTI Daniel 10-21-2023 Natriuretic peptide B (Bld) [Mass/Vol] 75.5 pg/mL Normal 0-100 [facility] Comment on above: Performed By: #### L 501.5200, L100.0100, L501.9520, L503.6620, L503.6005, L500.2500, L500.3400 ####[facility] [address] [place], [address] Basic Metabolic Profile (BMP )on 10-21-2023 BUN/CRE 21.9 RATIO High 10-20 [facility] Comment on above: Performed By: #### L 501.5200, L100.0100, L501.9520, L503.6620, L503.6005, L500.2500, L500.3400 ####[facility] [address] [place], [address] CA,Total 8.8 mg/dL Normal 8.5-10.1 [facility] Comment on above: Performed By: #### L 501.5200, L100.0100, L501.9520, L503.6620, L503.6005, L500.2500, L500.3400 ####[facility] [address] [place], [address] Chloride [Moles/Vol] 97 mmol/L Low 98-107 [facility] Comment on above: Performed By: #### L 501.5200, L100.0100, L501.9520, L503.6620, L503.6005, L500.2500, L500.3400 ####[facility] [address] [place], [address] CO2 [Moles/Vol] 27.0 mmol/L Normal 21.0-32.0 [facility] Comment on above: Performed By: #### L 501.5200, L100.0100, L501.9520, L503.6620, L503.6005, L500.2500, L500.3400 ####[facility] [address] [place], [address](430) Creatinine [Mass/Vol] 1.60 mg/dL High 0.70-1.30 [facility] Comment on above: Result Comment: The validity of the calculated GFR GFRAA in patients over70 years has not been determined. Clinical correlation isessential. Performed By: #### L 501.5200, L100.0100, L501.9520, L503.6620, L503.6005, L500.2500, L500.3400 ####[facility] [address] [place], [address] EST GFR - AA 56 mL/min Low >60 [facility] Comment on above: Result Comment: Afri can Filipino GFR Calc Performed By: #### L 501.5200, L100.0100, L501.9520, L503.6620, L503.6005, L500.2500, L500.3400 ####[facility] [address] [place], [place], [phone] [phone] Normal 5-15 [facility] Comment on above: Performed By: #### L 501.5200, L100.0100, L501.9520, L503.6620, L503.6005, L500.2500, L500.3400 ####[facility] [address] [place], [place], [address] GFR/1.73 sq M.predicted among non-blacks MDRD (S/P/Bld) [Vol rate/Area] 46 mL/min/{1.73_m2} Low >60 [facility] Comment on above: Result Comment: Non- GFR Calc Performed By: #### L 501.5200, L100.0100, L501.9520, L503.6620, L503.6005, L500.2500, L500.3400 ####[facility] [address] [place], [address] Glucose [Mass/Vol] 114 mg/dL High 74-106 [facility] Comment on above: Result Comment: Fast ing Glucose result from 100 to 125 mg/dLsuggests IMPAIRED HOMEOSTASIS per A.D.A. criteria. Performed By: #### L 501.5200, L100.0100, L501.9520, L503.6620, L503.6005, L500.2500, L500.3400 ####[facility] [address] [place], [address] Potassium [Moles/Vol] 3.5 mmol/L Normal 3.5-5.1 [facility] Comment on above: Performed By: #### L 501.5200, L100.0100, L501.9520, L503.6620, L503.6005, L500.2500, L500.3400 ####[facility] [address] [place], [address] Sodium [Moles/Vol] 133 mmol/L Low 136-145 [facility] Comment on above: Performed By: #### L 501.5200, L100.0100, L501.9520, L503.6620, L503.6005, L500.2500, L500.3400 ####[facility] [address] [place], [address] Urea nitrogen [Mass/Vol] 35 mg/dL High 7-18 [facility] Comment on above: Performed By: #### L 501.5200, L100.0100, L501.9520, L503.6620, L503.6005, L500.2500, L500.3400 ####[facility] [address] [place], [address] CBC W/Diff, Automatedon 09-0 2-2024 Absolute Lymph 0.81 X10 3/uL Low 0.83-4.51 [facility] Comment on above: Performed By: #### L 501.5200, L100.0100, L501.9520, L503.6620, L503.6005, L500.2500, L500.3400 ####[facility] [address] [place], [address] Absolute Neut 8.4 X10 3/uL High 2.0-7.7 [facility] Comment on above: Performed By: #### L 501.5200, L100.0100, L501.9520, L503.6620, L503.6005, L500.2500, L500.3400 ####[facility] [address] [place], [address] Basophils/100 WBC (Bld) 0.2 % Normal 0-1 [facility] Comment on above: Performed By: #### L 501.5200, L100.0100, L501.9520, L503.6620, L503.6005, L500.2500, L500.3400 ####[facility] [address] [place], [address] Eosinophils/100 WBC (Bld) 0.0 % Normal 0-5 [facility] Comment on above: Performed By: #### L 501.5200, L100.0100, L501.9520, L503.6620, L503.6005, L500.2500, L500.3400 ####[facility] [address] [place], [address] Erythrocyte distribution width (RBC) [Ratio] 14.0 % Normal 11.6-14.6 [facility] Comment on above: Performed By: #### L 501.5200, L100.0100, L501.9520, L503.6620, L503.6005, L500.2500, L500.3400 ####[facility] [address] [place], [address] Hematocrit (Bld) [Volume fraction] 42.7 % Normal 40-54 [facility] Comment on above: Performed By: #### L 501.5200, L100.0100, L501.9520, L503.6620, L503.6005, L500.2500, L500.3400 ####[facility] [address] [place], [address] Hemoglobin (Bld) [Mass/Vol] 13.8 g/dL Normal 13.0-16.5 [facility] Comment on above: Performed By: #### L 501.5200, L100.0100, L501.9520, L503.6620, L503.6005, L500.2500, L500.3400 ####[facility] [address] [place], [address] IG% 0.400 Normal 0.0-0.9 [facility] Comment on above: Result Comment: IG% - Immature Granulocytes (promyelocytes, myelocytes andmetamyelocytes) > 1% indicates that a LEFT SHIFT is Present. Performed By: #### L 501.5200, L100.0100, L501.9520, L503.6620, L503.6005, L500.2500, L500.3400 ####[facility] [address] [place], [address] Lymphocytes/100 WBC (Bld) 8.1 % Low 19-41 [facility] Comment on above: Performed By: #### L 501.5200, L100.0100, L501.9520, L503.6620, L503.6005, L500.2500, L500.3400 ####[facility] [address] [place], [address] MCH (RBC) [Entitic mass] 30.7 pg Normal 27.0-32.0 [facility] Comment on above: Performed By: #### L 501.5200, L100.0100, L501.9520, L503.6620, L503.6005, L500.2500, L500.3400 ####[facility] [address] [place], [address] MCHC (RBC) [Mass/Vol] 32.3 g/dL Normal 32-36 [facility] Comment on above: Performed By: #### L 501.5200, L100.0100, L501.9520, L503.6620, L503.6005, L500.2500, L500.3400 ####[facility] [address] [place], [address] MCV (RBC) [Entitic vol] 95.1 fL High 80-94 [facility] Comment on above: Performed By: #### L 501.5200, L100.0100, L501.9520, L503.6620, L503.6005, L500.2500, L500.3400 ####[facility] [address] [place], [address] Monocytes/100 WBC (Bld) 7.2 % Normal 0-10 [facility] Comment on above: Performed By: #### L 501.5200, L100.0100, L501.9520, L503.6620, L503.6005, L500.2500, L500.3400 ####[facility] [address] [place], [address] Neutrophils/100 WBC (Bld) 84.1 % High 47-70 [facility] Comment on above: Performed By: #### L 501.5200, L100.0100, L501.9520, L503.6620, L503.6005, L500.2500, L500.3400 ####[facility] [address] [place], [address] Nucleated RBC (Bld) [#/Vol] 0 10*3/uL Normal 0-5 [facility] Comment on above: Performed By: #### L 501.5200, L100.0100, L501.9520, L503.6620, L503.6005, L500.2500, L500.3400 ####[facility] [address] [place], [address] Platelet mean volume (Bld) [Entitic vol] 10.7 fL Normal 6.2-12.0 [facility] Comment on above: Performed By: #### L 501.5200, L100.0100, L501.9520, L503.6620, L503.6005, L500.2500, L500.3400 ####[facility] [address] [place], [address] Platelets (Bld) [#/Vol] 216 10*3/uL Normal 150-450 [facility] Comment on above: Performed By: #### L 501.5200, L100.0100, L501.9520, L503.6620, L503.6005, L500.2500, L500.3400 ####[facility] [address] [place], [address] RBC (Bld) [#/Vol] 4.49 10*6/uL Low 4.6-6.2 [facility] Comment on above: Performed By: #### L 501.5200, L100.0100, L501.9520, L503.6620, L503.6005, L500.2500, L500.3400 ####[facility] [address] [place], [address] RDW SD 49.1 fl High 35.1-43.9 [facility] Comment on above: Performed By: #### L 501.5200, L100.0100, L501.9520, L503.6620, L503.6005, L500.2500, L500.3400 ####[facility] [address] [place], [address] WBC (Bld) [#/Vol] 10.0 10*3/uL Normal 4.4-11.0 [facility] Comment on above: Performed By: #### L 501.5200, L100.0100, L501.9520, L503.6620, L503.6005, L500.2500, L500.3400 ####[facility] [address] [place], [address] Lactic Acidon 10-21-2023 Lactate [Moles/Vol] 1.5 mmol/L Normal 0.4-1.9 [facility] Comment on above: Order Comment: Y Performed By: #### L 501.5200, L100.0100, L501.9520, L503.6620, L503.6005, L500.2500, L500.3400 ####[facility] [address] [place], [address] Liver Profileon 10-21-2023 Albumin [Mass/Vol] 3.4 g/dL Normal 3.2-5.0 [facility] Comment on above: Performed By: #### L 501.5200, L100.0100, L501.9520, L503.6620, L503.6005, L500.2500, L500.3400 ####[facility] [address] [place], [address] ALK P 82 U/L Normal 45-117 [facility] Comment on above: Performed By: #### L 501.5200, L100.0100, L501.9520, L503.6620, L503.6005, L500.2500, L500.3400 ####[facility] [address] [place], [address] ALT [Catalytic activity/Vol] 15 U/L Low 16-61 [facility] Comment on above: Performed By: #### L 501.5200, L100.0100, L501.9520, L503.6620, L503.6005, L500.2500, L500.3400 ####[facility] [address] [place], [address] AST [Catalytic activity/Vol] 22 U/L Normal 15-37 [facility] Comment on above: Performed By: #### L 501.5200, L100.0100, L501.9520, L503.6620, L503.6005, L500.2500, L500.3400 ####[facility] [address] [place], [address] Bilirubin [Mass/Vol] 0.60 mg/dL Normal 0.20-1.00 [facility] Comment on above: Result Comment: For patients on eltrombopag therapy, use of Dimension [place] TBIL is not recommended. Performed By: #### L 501.5200, L100.0100, L501.9520, L503.6620, L503.6005, L500.2500, L500.3400 ####[facility] [address] [place], [address] Bilirubin.direct [Mass/Vol] 0.26 mg/dL Normal 0.00-0.30 [facility] Comment on above: Performed By: #### L 501.5200, L100.0100, L501.9520, L503.6620, L503.6005, L500.2500, L500.3400 ####[facility] [address] [place], [address] Globulin (S) [Mass/Vol] 3.7 g/dL Normal 2.2-4.2 [facility] Comment on above: Performed By: #### L 501.5200, L100.0100, L501.9520, L503.6620, L503.6005, L500.2500, L500.3400 ####[facility] [address] [place], [address] T PROT 7.1 g/dL Normal 6.4-8.2 [facility] Comment on above: Performed By: #### L 501.5200, L100.0100, L501.9520, L503.6620, L503.6005, L500.2500, L500.3400 ####[facility] [address] [place], [address] Magnesiumon 10-21-2023 Magnesium [Mass/Vol] 2.2 mg/dL Normal 1.6-2.6 [facility] Comment on above: Performed By: #### L 501.5200, L100.0100, L501.9520, L503.6620, L503.6005, L500.2500, L500.3400 ####[facility] [address] [place], [address] Thyroid Stim Hormone (TSH)on 10-21-2023 TSH 0.168 uIU/mL Low 0.358-3.740 [facility] Comment on above: Performed By: #### L 501.5200, L100.0100, L501.9520, L503.6620, L503.6005, L500.2500, L500.3400 ####[facility] [address] [place], [address] POCT UA Automated manually r esultedon 10-17-2023 Appearance (U) Clear Clear [facility] Work Phone: Glucose Test strip (U) [Mass/Vol] Negative NEGATIVE mg/dl [facility] Work Phone: Hemoglobin Ql (U) LARGE (3+) Abnormal NEGATIVE [facility] Work Phone: Interpretation and review of laboratory results Abnormal [facility] Work Phone: [phone] Leukocyte esterase Test strip Ql (U) SMALL (1+) Abnormal NEGATIVE [facility] Work Phone: [phone] Nitrite Ql (U) Negative NEGATIVE [facility] Work Phone: [phone] pH (U) 8.5 [pH] No Reference Range Established [facility] Work Phone: [phone] POC Bilirubin, Urine SMALL (1+) Abnormal NEGATIVE [facility] Work Phone: [phone] POC Color, Urine Yellow Straw, Yellow, Light-Yellow [facility] Work Phone: [phone] POC Ketones, Urine Negative NEGATIVE mg/dl [facility] Work Phone: [phone] POC Protein, Urine >=300 (3+) Abnormal NEGATIVE, 30 (1+) mg/dl [facility] Work Phone: [phone] POC Specific [place], Urine 1.020 1.005 - 1.035 [facility] Work Phone: POC Urobilinogen, Urine 0.2 0.2, 1.0 EU/DL [facility] Work Phone: [facility] Work Phone: Pulmonary Visit Reporton Pulmonary Visit Report Normal [facility] Basic Metabolic Profile (BMP )on 10-14-2023 BUN Normal -18 [facility] Comment on above: Result Comment: Canc elled via OM: Order cancelled - Patient discharged Performed By: #### L 500.2500, L100.0100 ####[facility] [address] [place], [address] BUN/CRE Normal 10-20 [facility] Comment on above: Result Comment: Canc elled via OM: Order cancelled - Patient discharged Performed By: #### L 500.2500, L100.0100 ####[facility] [address] [place], [address] CA,Total Normal 8.5-10.1 [facility] Comment on above: Result Comment: Canc elled via OM: Order cancelled - Patient discharged Performed By: #### L 500.2500, L100.0100 ####[facility] [address] [place], [address] CL Normal 98-107 [facility] Comment on above: Result Comment: Canc elled via OM: Order cancelled - Patient discharged Performed By: #### L 500.2500, L100.0100 ####[facility] [address] [place], [address] CO2 Normal 21.0-32.0 [facility] Comment on above: Result Comment: Canc elled via OM: Order cancelled - Patient discharged Performed By: #### L 500.2500, L100.0100 ####[facility] [address] [place], [address] CREAT,SERUM Normal 0.70-1.30 [facility] Comment on above: Result Comment: Canc elled via OM: Order cancelled - Patient discharged Performed By: #### L 500.2500, L100.0100 ####[facility] [address] [place], [address] EST GFR Normal >60 [facility] Comment on above: Result Comment: Canc elled via OM: Order cancelled - Patient discharged Performed By: #### L 500.2500, L100.0100 ####[facility] [address] [place], [address] EST GFR - AA Normal >60 [facility] Comment on above: Result Comment: Canc elled via OM: Order cancelled - Patient discharged Performed By: #### L 500.2500, L100.0100 ####[facility] [address] [place], [address] GAP Normal 5-15 [facility] Comment on above: Result Comment: Canc elled via OM: Order cancelled - Patient discharged Performed By: #### L 500.2500, L100.0100 ####[facility] [address] [place], [address] GLU Normal 74-106 [facility] Comment on above: Result Comment: Canc elled via OM: Order cancelled - Patient discharged Performed By: #### L 500.2500, L100.0100 ####[facility] [address] [place], [address] Potassium Normal 3.5-5.1 [facility] Comment on above: Result Comment: Canc elled via OM: Order cancelled - Patient discharged Performed By: #### L 500.2500, L100.0100 ####[facility] [address] [place], [address] Basic Metabolic Profile (BMP) Normal 136-145 [facility] Comment on above: Result Comment: Canc elled via OM: Order cancelled - Patient discharged Performed By: #### L 500.2500, L100.0100 ####[facility] [address] [place], [address] CBC W/Diff, Automatedon 08-2 Absolute Neut Normal 2.0-7.7 [facility] Comment on above: Result Comment: Canc elled via OM: Order cancelled - Patient discharged Performed By: #### L 500.2500, L100.0100 ####[facility] [address] [place], [address] HCT Normal 40-54 [facility] Comment on above: Result Comment: Canc elled via OM: Order cancelled - Patient discharged Performed By: #### L 500.2500, L100.0100 ####[facility] [address] [place], [address] HGB Normal 13.0-16.5 [facility] Comment on above: Result Comment: Canc elled via OM: Order cancelled - Patient discharged Performed By: #### L 500.2500, L100.0100 ####[facility] [address] [place], [address] MCH Normal 27.0-32.0 [facility] Comment on above: Result Comment: Canc elled via OM: Order cancelled - Patient discharged Performed By: #### L 500.2500, L100.0100 ####[facility] [address] [place], [address] MCHC Normal 32-36 [facility] Comment on above: Result Comment: Canc elled via OM: Order cancelled - Patient discharged Performed By: #### L 500.2500, L100.0100 ####[facility] [address] [place], [address] MCV Normal 80-94 [facility] Comment on above: Result Comment: Canc elled via OM: Order cancelled - Patient discharged Performed By: #### L 500.2500, L100.0100 ####[facility] [address] [place], [address] NEUT% Normal 47-70 [facility] Comment on above: Result Comment: Canc elled via OM: Order cancelled - Patient discharged Performed By: #### L 500.2500, L100.0100 ####[facility] [address] [place], [address] PLT Normal 150-450 [facility] Comment on above: Result Comment: Canc elled via OM: Order cancelled - Patient discharged Performed By: #### L 500.2500, L100.0100 ####[facility] [address] [place], [address] RBC Normal 4.6-6.2 [facility] Comment on above: Result Comment: Canc elled via OM: Order cancelled - Patient discharged Performed By: #### L 500.2500, L100.0100 ####[facility] [address] [place], [address] RDW CV Normal 11.6-14.6 [facility] Comment on above: Result Comment: Canc elled via OM: Order cancelled - Patient discharged Performed By: #### L 500.2500, L100.0100 ####[facility] [address] [place], [address] RDW SD Normal 35.1-43.9 [facility] Comment on above: Result Comment: Canc elled via OM: Order cancelled - Patient discharged Performed By: #### L 500.2500, L100.0100 ####[facility] [address] [place], [address] WBC Normal 4.4-11.0 [facility] Comment on above: Result Comment: Canc elled via OM: Order cancelled - Patient discharged Performed By: #### L 500.2500, L100.0100 ####[facility] [address] [place], [address] Basic Metabolic Profile (BMP )on 10-11-2023 BUN/CRE 21.5 RATIO High 10-20 [facility] Comment on above: Performed By: #### L 500.2500, L100.0100 ####[facility] [address] [place], [address] CA,Total 9.3 mg/dL Normal 8.5-10.1 [facility] Comment on above: Performed By: #### L 500.2500, L100.0100 ####[facility] [address] [place], [address] Chloride [Moles/Vol] 103 mmol/L Normal 98-107 [facility] Comment on above: Performed By: #### L 500.2500, L100.0100 ####[facility] [address] [place], [address] CO2 [Moles/Vol] 26.0 mmol/L Normal 21.0-32.0 [facility] Comment on above: Performed By: #### L 500.2500, L100.0100 ####[facility] [address] [place], [address] Creatinine [Mass/Vol] 1.30 mg/dL Normal 0.70-1.30 [facility] Comment on above: Result Comment: The validity of the calculated GFR GFRAA in patients over70 years has not been determined. Clinical correlation isessential. Performed By: #### L 500.2500, L100.0100 ####[facility] [address] [place], [address] ECRCL 63.19 ml/min Normal [facility] Comment on above: Performed By: #### L 500.2500, L100.0100 ####[facility] [address] [place], [address] EST GFR - AA 71 mL/min Normal >60 [facility] Comment on above: Result Comment: Afri can Filipino GFR Calc Performed By: #### L 500.2500, L100.0100 ####[facility] [address] [place], [address] GAP 9 Normal 5-15 [facility] Comment on above: Performed By: #### L 500.2500, L100.0100 ####[facility] [address] [place], [address] GFR/1.73 sq M.predicted among non-blacks MDRD (S/P/Bld) [Vol rate/Area] 59 mL/min/{1.73_m2} Low >60 [facility] Comment on above: Result Comment: Non- GFR Calc Performed By: #### L 500.2500, L100.0100 ####[facility] [address] [place], [address] Glucose [Mass/Vol] 106 mg/dL Normal 74-106 [facility] Comment on above: Result Comment: Fast ing Glucose result from 100 to 125 mg/dLsuggests IMPAIRED HOMEOSTASIS per A.D.A. criteria. Performed By: #### L 500.2500, L100.0100 ####[facility] [address] [place], [address] Potassium [Moles/Vol] 3.7 mmol/L Normal 3.5-5.1 [facility] Comment on above: Performed By: #### L 500.2500, L100.0100 ####[facility] [address] [place], [address] Sodium [Moles/Vol] 138 mmol/L Normal 136-145 [facility] Comment on above: Performed By: #### L 500.2500, L100.0100 ####[facility] [address] [place], [address] Urea nitrogen [Mass/Vol] 28 mg/dL High 7-18 [facility] Comment on above: Performed By: #### L 500.2500, L100.0100 ####[facility] [address] [place], [address] CBC W/Diff, Automatedon 08-2 -2023 Absolute Lymph 1.00 X10 3/uL Normal 0.83-4.51 [facility] Comment on above: Performed By: #### L 500.2500, L100.0100 ####[facility] [address] [place], [address] Absolute Neut 11.8 X10 3/uL High 2.0-7.7 [facility] Comment on above: Performed By: #### L 500.2500, L100.0100 ####[facility] [address] [place], [address] Basophils/100 WBC (Bld) 0.2 % Normal 0-1 [facility] Comment on above: Performed By: #### L 500.2500, L100.0100 ####[facility] [address] [place], [address] Eosinophils/100 WBC (Bld) 0.1 % Normal 0-5 [facility] Comment on above: Performed By: #### L 500.2500, L100.0100 ####[facility] [address] [place], [address] Erythrocyte distribution width (RBC) [Ratio] 14.1 % Normal 11.6-14.6 [facility] Comment on above: Performed By: #### L 500.2500, L100.0100 ####[facility] [address] [place], [address] Hematocrit (Bld) [Volume fraction] 41.5 % Normal 40-54 [facility] Comment on above: Performed By: #### L 500.2500, L100.0100 ####[facility] [address] [place], [address] Hemoglobin (Bld) [Mass/Vol] 13.6 g/dL Normal 13.0-16.5 [facility] Comment on above: Performed By: #### L 500.2500, L100.0100 ####[facility] [address] [place], [address] IG% 0.500 Normal 0.0-0.9 [facility] Comment on above: Result Comment: IG% - Immature Granulocytes (promyelocytes, myelocytes andmetamyelocytes) > 1% indicates that a LEFT SHIFT is Present. Performed By: #### L 500.2500, L100.0100 ####[facility] [address] [place], [address] Lymphocytes/100 WBC (Bld) 7.2 % Low 19-41 [facility] Comment on above: Performed By: #### L 500.2500, L100.0100 ####[facility] [address] [place], [address] MCH (RBC) [Entitic mass] 30.6 pg Normal 27.0-32.0 [facility] Comment on above: Performed By: #### L 500.2500, L100.0100 ####[facility] [address] [place], [address] MCHC (RBC) [Mass/Vol] 32.8 g/dL Normal 32-36 [facility] Comment on above: Performed By: #### L 500.2500, L100.0100 ####[facility] [address] [place], [address] MCV (RBC) [Entitic vol] 93.5 fL Normal 80-94 [facility] Comment on above: Performed By: #### L 500.2500, L100.0100 ####[facility] [address] [place], [address] Monocytes/100 WBC (Bld) 7.0 % Normal 0-10 [facility] Comment on above: Performed By: #### L 500.2500, L100.0100 ####[facility] [address] [place], [address] Neutrophils/100 WBC (Bld) 85.0 % High 47-70 [facility] Comment on above: Performed By: #### L 500.2500, L100.0100 ####[facility] [address] [place], [address] Nucleated RBC (Bld) [#/Vol] 0 10*3/uL Normal 0-5 [facility] Comment on above: Performed By: #### L 500.2500, L100.0100 ####[facility] [address] [place], [address] Platelet mean volume (Bld) [Entitic vol] 12.4 fL High 6.2-12.0 [facility] Comment on above: Performed By: #### L 500.2500, L100.0100 ####[facility] [address] [place], [address] Platelets (Bld) [#/Vol] 127 10*3/uL Low 150-450 [facility] Comment on above: Performed By: #### L 500.2500, L100.0100 ####[facility] [address] [place], [address] RBC (Bld) [#/Vol] 4.44 10*6/uL Low 4.6-6.2 [facility] Comment on above: Performed By: #### L 500.2500, L100.0100 ####[facility] [address] [place], [address] RDW SD 49.0 fl High 35.1-43.9 [facility] Comment on above: Performed By: #### L 500.2500, L100.0100 ####[facility] [address] [place], [address] WBC (Bld) [#/Vol] 13.9 10*3/uL High 4.4-11.0 [facility] Comment on above: Performed By: #### L 500.2500, L100.0100 ####[facility] [address] [place], [address] Emergency Department Summary on 10-11-2023 Emergency Department Summary Normal [facility] Urinalysis, Completeon 10-10 BACTERIA 2+ /hpf Normal None Seen [facility] Comment on above: Order Comment: COLOR OF URINE MAY AFFECT DIPSTICK RESULTS.STITCH SEPARATOR TO SPECIFY Performed By: #### L 400.0001 ####[facility] [address] [place], [address] WBC 5-10 SEEN Normal 0-5 [facility] Comment on above: Order Comment: COLOR OF URINE MAY AFFECT DIPSTICK RESULTS.STITCH SEPARATOR TO SPECIFY Performed By: #### L 400.0001 ####[facility] [address] [place], [address] RBC > 100 SEEN Normal 0-5 [facility] Comment on above: Order Comment: COLOR OF URINE MAY AFFECT DIPSTICK RESULTS.STITCH SEPARATOR TO SPECIFY Performed By: #### L 400.0001 ####[facility] [address] [place], [address] EPI,SQUAMOUS 0 SEEN Normal 0-5 [facility] Comment on above: Order Comment: COLOR OF URINE MAY AFFECT DIPSTICK RESULTS.STITCH SEPARATOR TO SPECIFY Performed By: #### L 400.0001 ####[facility] [address] [place], [address] Mucus Ql (Urine sed) 0 SEEN Normal [facility] Comment on above: Order Comment: COLOR OF URINE MAY AFFECT DIPSTICK RESULTS.STITCH SEPARATOR TO SPECIFY Performed By: #### L 400.0001 ####[facility] [address] [place], [address] Cardiology Visit Reporton Cardiology Visit Report Normal [facility] Basic Metabolic Profile (BMP )on 10-07-2023 BUN Normal 7-18 [facility] Comment on above: Result Comment: Canc elled via OM: Order cancelled - Patient discharged Performed By: #### L 100.0100, L500.2500 ####[facility] [address] [place], [address] BUN/CRE Normal 10-20 [facility] Comment on above: Result Comment: Canc elled via OM: Order cancelled - Patient discharged Performed By: #### L 100.0100, L500.2500 ####[facility] [address] [place], [address] CA,Total Normal 8.5-10.1 [facility] Comment on above: Result Comment: Canc elled via OM: Order cancelled - Patient discharged Performed By: #### L 100.0100, L500.2500 ####[facility] [address] [place], [address] CL Normal 98-107 [facility] Comment on above: Result Comment: Canc elled via OM: Order cancelled - Patient discharged Performed By: #### L 100.0100, L500.2500 ####[facility] [address] [place], [address] CO2 Normal 21.0-32.0 [facility] Comment on above: Result Comment: Canc elled via OM: Order cancelled - Patient discharged Performed By: #### L 100.0100, L500.2500 ####[facility] [address] [place], [address] CREAT,SERUM Normal 0.70-1.30 [facility] Comment on above: Result Comment: Canc elled via OM: Order cancelled - Patient discharged Performed By: #### L 100.0100, L500.2500 ####[facility] [address] [place], [address] EST GFR Normal >60 [facility] Comment on above: Result Comment: Canc elled via OM: Order cancelled - Patient discharged Performed By: #### L 100.0100, L500.2500 ####[facility] [address] [place], [address] EST GFR - AA Normal >60 [facility] Comment on above: Result Comment: Canc elled via OM: Order cancelled - Patient discharged Performed By: #### L 100.0100, L500.2500 ####[facility] [address] [place], [address] GAP Normal 5-15 [facility] Comment on above: Result Comment: Canc elled via OM: Order cancelled - Patient discharged Performed By: #### L 100.0100, L500.2500 ####[facility] [address] [place], [address] GLU Normal 74-106 [facility] Comment on above: Result Comment: Canc elled via OM: Order cancelled - Patient discharged Performed By: #### L 100.0100, L500.2500 ####[facility] [address] [place], [address] Potassium Normal 3.5-5.1 [facility] Comment on above: Result Comment: Canc elled via OM: Order cancelled - Patient discharged Performed By: #### L 100.0100, L500.2500 ####[facility] [address] [place], [address] Basic Metabolic Profile (BMP) Normal 136-145 [facility] Comment on above: Result Comment: Canc elled via OM: Order cancelled - Patient discharged Performed By: #### L 100.0100, L500.2500 ####[facility] [address] [place], [address] CBC W/Diff, Automatedon 08- Absolute Neut Normal 2.0-7.7 [facility] Comment on above: Result Comment: Canc elled via OM: Order cancelled - Patient discharged Performed By: #### L 100.0100, L500.2500 ####[facility] [address] [place], [address] HCT Normal 40-54 [facility] Comment on above: Result Comment: Canc elled via OM: Order cancelled - Patient discharged Performed By: #### L 100.0100, L500.2500 ####[facility] [address] [place], [address] HGB Normal 13.0-16.5 [facility] Comment on above: Result Comment: Canc elled via OM: Order cancelled - Patient discharged Performed By: #### L 100.0100, L500.2500 ####[facility] [address] [place], [address] MCH Normal 27.0-32.0 [facility] Comment on above: Result Comment: Canc elled via OM: Order cancelled - Patient discharged Performed By: #### L 100.0100, L500.2500 ####[facility] [address] [place], [address] MCHC Normal 32-36 [facility] Comment on above: Result Comment: Canc elled via OM: Order cancelled - Patient discharged Performed By: #### L 100.0100, L500.2500 ####[facility] [address] [place], [address] MCV Normal 80-94 [facility] Comment on above: Result Comment: Canc elled via OM: Order cancelled - Patient discharged Performed By: #### L 100.0100, L500.2500 ####[facility] [address] [place], [address] NEUT% Normal 47-70 [facility] Comment on above: Result Comment: Canc elled via OM: Order cancelled - Patient discharged Performed By: #### L 100.0100, L500.2500 ####[facility] [address] [place], [address] PLT Normal 150-450 [facility] Comment on above: Result Comment: Canc elled via OM: Order cancelled - Patient discharged Performed By: #### L 100.0100, L500.2500 ####[facility] [address] [place], [address] RBC Normal 4.6-6.2 [facility] Comment on above: Result Comment: Canc elled via OM: Order cancelled - Patient discharged Performed By: #### L 100.0100, L500.2500 ####[facility] [address] [place], [address] RDW CV Normal 11.6-14.6 [facility] Comment on above: Result Comment: Canc elled via OM: Order cancelled - Patient discharged Performed By: #### L 100.0100, L500.2500 ####[facility] [address] [place], [address] RDW SD Normal 35.1-43.9 [facility] Comment on above: Result Comment: Canc elled via OM: Order cancelled - Patient discharged Performed By: #### L 100.0100, L500.2500 ####[facility] [address] [place], [address] WBC Normal 4.4-11.0 [facility] Comment on above: Result Comment: Canc elled via OM: Order cancelled - Patient discharged Performed By: #### L 100.0100, L500.2500 ####[facility] [address] [place], [address] Neurology Visit Reporton Neurology Visit Report Normal [facility] Basic Metabolic Profile (BMP )on 09-30-2023 BUN Normal 7-18 [facility] Comment on above: Result Comment: Canc elled via OM: Order cancelled - Patient discharged Performed By: #### L 500.2500, L100.0100 ####[facility] [address] [place], [address] BUN/CRE Normal 10-20 [facility] Comment on above: Result Comment: Canc elled via OM: Order cancelled - Patient discharged Performed By: #### L 500.2500, L100.0100 ####[facility] [address] [place], [address] CA,Total Normal 8.5-10.1 [facility] Comment on above: Result Comment: Canc elled via OM: Order cancelled - Patient discharged Performed By: #### L 500.2500, L100.0100 ####[facility] [address] [place], [address] CL Normal 98-107 [facility] Comment on above: Result Comment: Canc elled via OM: Order cancelled - Patient discharged Performed By: #### L 500.2500, L100.0100 ####[facility] [address] [place], [address] CO2 Normal 21.0-32.0 [facility] Comment on above: Result Comment: Canc elled via OM: Order cancelled - Patient discharged Performed By: #### L 500.2500, L100.0100 ####[facility] [address] [place], [address] CREAT,SERUM Normal 0.70-1.30 [facility] Comment on above: Result Comment: Canc elled via OM: Order cancelled - Patient discharged Performed By: #### L 500.2500, L100.0100 ####[facility] [address] [place], [address] EST GFR Normal >60 [facility] Comment on above: Result Comment: Canc elled via OM: Order cancelled - Patient discharged Performed By: #### L 500.2500, L100.0100 ####[facility] [address] [place], [address] EST GFR - AA Normal >60 [facility] Comment on above: Result Comment: Canc elled via OM: Order cancelled - Patient discharged Performed By: #### L 500.2500, L100.0100 ####[facility] [address] [place], [address] GAP Normal 5-15 [facility] Comment on above: Result Comment: Canc elled via OM: Order cancelled - Patient discharged Performed By: #### L 500.2500, L100.0100 ####[facility] [address] [place], [address] GLU Normal 74-106 [facility] Comment on above: Result Comment: Canc elled via OM: Order cancelled - Patient discharged Performed By: #### L 500.2500, L100.0100 ####[facility] [address] [place], [address] Potassium Normal 3.5-5.1 [facility] Comment on above: Result Comment: Canc elled via OM: Order cancelled - Patient discharged Performed By: #### L 500.2500, L100.0100 ####[facility] [address] [place], [address] Basic Metabolic Profile (BMP) Normal 136-145 [facility] Comment on above: Result Comment: Canc elled via OM: Order cancelled - Patient discharged Performed By: #### L 500.2500, L100.0100 ####[facility] [address] [place], [address] CBC W/Diff, Automatedon - Absolute Neut Normal 2.0-7.7 [facility] Comment on above: Result Comment: Canc elled via OM: Order cancelled - Patient discharged Performed By: #### L 500.2500, L100.0100 ####[facility] [address] [place], [address] HCT Normal 40-54 [facility] Comment on above: Result Comment: Canc elled via OM: Order cancelled - Patient discharged Performed By: #### L 500.2500, L100.0100 ####[facility] [address] [place], [address] HGB Normal 13.0-16.5 [facility] Comment on above: Result Comment: Canc elled via OM: Order cancelled - Patient discharged Performed By: #### L 500.2500, L100.0100 ####[facility] [address] [place], [address] MCH Normal 27.0-32.0 [facility] Comment on above: Result Comment: Canc elled via OM: Order cancelled - Patient discharged Performed By: #### L 500.2500, L100.0100 ####[facility] [address] [place], [address] MCHC Normal 32-36 [facility] Comment on above: Result Comment: Canc elled via OM: Order cancelled - Patient discharged Performed By: #### L 500.2500, L100.0100 ####[facility] [address] [place], [address] MCV Normal 80-94 [facility] Comment on above: Result Comment: Canc elled via OM: Order cancelled - Patient discharged Performed By: #### L 500.2500, L100.0100 ####[facility] [address] [place], [address] NEUT% Normal 47-70 [facility] Comment on above: Result Comment: Canc elled via OM: Order cancelled - Patient discharged Performed By: #### L 500.2500, L100.0100 ####[facility] [address] [place], [address] PLT Normal 150-450 [facility] Comment on above: Result Comment: Canc elled via OM: Order cancelled - Patient discharged Performed By: #### L 500.2500, L100.0100 ####[facility] [address] [place], [address] RBC Normal 4.6-6.2 [facility] Comment on above: Result Comment: Canc elled via OM: Order cancelled - Patient discharged Performed By: #### L 500.2500, L100.0100 ####[facility] [address] [place], [address] RDW CV Normal 11.6-14.6 [facility] Comment on above: Result Comment: Canc elled via OM: Order cancelled - Patient discharged Performed By: #### L 500.2500, L100.0100 ####[facility] [address] [place], [address] RDW SD Normal 35.1-43.9 [facility] Comment on above: Result Comment: Canc elled via OM: Order cancelled - Patient discharged Performed By: #### L 500.2500, L100.0100 ####[facility] [address] [place], [address] WBC Normal 4.4-11.0 [facility] Comment on above: Result Comment: Canc elled via OM: Order cancelled - Patient discharged Performed By: #### L 500.2500, L100.0100 ####[facility] [address] [place], [address] Basic Metabolic Profile (BMP )on 09-23-2023 BUN Normal 7-18 [facility] Comment on above: Result Comment: Canc elled via OM: Order cancelled - Patient discharged Performed By: #### L 500.2500, L100.0100 ####[facility] [address] [place], [address] BUN/CRE Normal 10-20 [facility] Comment on above: Result Comment: Canc elled via OM: Order cancelled - Patient discharged Performed By: #### L 500.2500, L100.0100 ####[facility] [address] [place], [address] CA,Total Normal 8.5-10.1 [facility] Comment on above: Result Comment: Canc elled via OM: Order cancelled - Patient discharged Performed By: #### L 500.2500, L100.0100 ####[facility] [address] [place], [address] CL Normal 98-107 [facility] Comment on above: Result Comment: Canc elled via OM: Order cancelled - Patient discharged Performed By: #### L 500.2500, L100.0100 ####[facility] [address] [place], [address] CO2 Normal 21.0-32.0 [facility] Comment on above: Result Comment: Canc elled via OM: Order cancelled - Patient discharged Performed By: #### L 500.2500, L100.0100 ####[facility] [address] [place], [address] CREAT,SERUM Normal 0.70-1.30 [facility] Comment on above: Result Comment: Canc elled via OM: Order cancelled - Patient discharged Performed By: #### L 500.2500, L100.0100 ####[facility] [address] [place], [address] EST GFR Normal >60 [facility] Comment on above: Result Comment: Canc elled via OM: Order cancelled - Patient discharged Performed By: #### L 500.2500, L100.0100 ####[facility] [address] [place], [address] EST GFR - AA Normal >60 [facility] Comment on above: Result Comment: Canc elled via OM: Order cancelled - Patient discharged Performed By: #### L 500.2500, L100.0100 ####[facility] [address] [place], [address] GAP Normal 5-15 [facility] Comment on above: Result Comment: Canc elled via OM: Order cancelled - Patient discharged Performed By: #### L 500.2500, L100.0100 ####[facility] [address] [place], [address] GLU Normal 74-106 [facility] Comment on above: Result Comment: Canc elled via OM: Order cancelled - Patient discharged Performed By: #### L 500.2500, L100.0100 ####[facility] [address] [place], [address] Potassium Normal 3.5-5.1 [facility] Comment on above: Result Comment: Canc elled via OM: Order cancelled - Patient discharged Performed By: #### L 500.2500, L100.0100 ####[facility] [address] [place], [address] Basic Metabolic Profile (BMP) Normal 136-145 [facility] Comment on above: Result Comment: Canc elled via OM: Order cancelled - Patient discharged Performed By: #### L 500.2500, L100.0100 ####[facility] [address] [place], [address] CBC W/Diff, Automatedon 08-0 -2023 Absolute Neut Normal 2.0-7.7 [facility] Comment on above: Result Comment: Canc elled via OM: Order cancelled - Patient discharged Performed By: #### L 500.2500, L100.0100 ####[facility] [address] [place], [address] HCT Normal 40-54 [facility] Comment on above: Result Comment: Canc elled via OM: Order cancelled - Patient discharged Performed By: #### L 500.2500, L100.0100 ####[facility] [address] [place], [address] HGB Normal 13.0-16.5 [facility] Comment on above: Result Comment: Canc elled via OM: Order cancelled - Patient discharged Performed By: #### L 500.2500, L100.0100 ####[facility] [address] [place], [address] MCH Normal 27.0-32.0 [facility] Comment on above: Result Comment: Canc elled via OM: Order cancelled - Patient discharged Performed By: #### L 500.2500, L100.0100 ####[facility] [address] [place], [address] MCHC Normal 32-36 [facility] Comment on above: Result Comment: Canc elled via OM: Order cancelled - Patient discharged Performed By: #### L 500.2500, L100.0100 ####[facility] [address] [place], [address] MCV Normal 80-94 [facility] Comment on above: Result Comment: Canc elled via OM: Order cancelled - Patient discharged Performed By: #### L 500.2500, L100.0100 ####[facility] [address] [place], [address] NEUT% Normal 47-70 [facility] Comment on above: Result Comment: Canc elled via OM: Order cancelled - Patient discharged Performed By: #### L 500.2500, L100.0100 ####[facility] [address] [place], [address] PLT Normal 150-450 [facility] Comment on above: Result Comment: Canc elled via OM: Order cancelled - Patient discharged Performed By: #### L 500.2500, L100.0100 ####[facility] [address] [place], [address] RBC Normal 4.6-6.2 [facility] Comment on above: Result Comment: Canc elled via OM: Order cancelled - Patient discharged Performed By: #### L 500.2500, L100.0100 ####[facility] [address] [place], [address] RDW CV Normal 11.6-14.6 [facility] Comment on above: Result Comment: Canc elled via OM: Order cancelled - Patient discharged Performed By: #### L 500.2500, L100.0100 ####[facility] [address] [place], [address] RDW SD Normal 35.1-43.9 [facility] Comment on above: Result Comment: Canc elled via OM: Order cancelled - Patient discharged Performed By: #### L 500.2500, L100.0100 ####[facility] [address] [place], [address] WBC Normal 4.4-11.0 [facility] Comment on above: Result Comment: Canc elled via OM: Order cancelled - Patient discharged Performed By: #### L 500.2500, L100.0100 ####[facility] [address] [place], [address] COVID 19 AG RAPID (RN DENIZ Anderson)on 09-19-2023 SARS-CoV-2 (COVID-19) RNA YOLY+probe Ql (Unsp spec) Normal [facility] Comment on above: Performed By: #### M 100.505 ####[facility] [address] [place], [address] Basic Metabolic Profile (BMP )on 09-16-2023 BUN/CRE 18.2 RATIO Normal 10-20 [facility] Comment on above: Performed By: #### L 500.2500, L100.0100 ####[facility] [address] [place], [address] CA,Total 9.3 mg/dL Normal 8.5-10.1 [facility] Comment on above: Performed By: #### L 500.2500, L100.0100 ####[facility] [address] [place], [address] Chloride [Moles/Vol] 106 mmol/L Normal 98-107 [facility] Comment on above: Performed By: #### L 500.2500, L100.0100 ####[facility] [address] [place], [address] CO2 [Moles/Vol] 32.0 mmol/L Normal 21.0-32.0 [facility] Comment on above: Performed By: #### L 500.2500, L100.0100 ####[facility] [address] [place], [address] Creatinine [Mass/Vol] 0.99 mg/dL Normal 0.70-1.30 [facility] Comment on above: Result Comment: The validity of the calculated GFR GFRAA in patients over70 years has not been determined. Clinical correlation isessential. Performed By: #### L 500.2500, L100.0100 ####[facility] [address] [place], [address] ECRCL 83.27 ml/min Normal [facility] Comment on above: Performed By: #### L 500.2500, L100.0100 ####[facility] [address] [place], [address] EST GFR - AA 98 mL/min Normal >60 [facility] Comment on above: Result Comment: Afri can Filipino GFR Calc Performed By: #### L 500.2500, L100.0100 ####[facility] [address] [place], [address] GAP 2 Low 5-15 [facility] Comment on above: Performed By: #### L 500.2500, L100.0100 ####[facility] [address] [place], [address] GFR/1.73 sq M.predicted among non-blacks MDRD (S/P/Bld) [Vol rate/Area] 81 mL/min/{1.73_m2} Normal >60 [facility] Comment on above: Result Comment: Non- GFR Calc Performed By: #### L 500.2500, L100.0100 ####[facility] [address] [place], [address] Glucose [Mass/Vol] 94 mg/dL Normal 74-106 [facility] Comment on above: Performed By: #### L 500.2500, L100.0100 ####[facility] [address] [place], [address] Potassium [Moles/Vol] 4.2 mmol/L Normal 3.5-5.1 [facility] Comment on above: Performed By: #### L 500.2500, L100.0100 ####[facility] [address] [place], [address] Sodium [Moles/Vol] 140 mmol/L Normal 136-145 [facility] Comment on above: Performed By: #### L 500.2500, L100.0100 ####[facility] [address] [place], [address] Urea nitrogen [Mass/Vol] 18 mg/dL Normal 7-18 [facility] Comment on above: Performed By: #### L 500.2500, L100.0100 ####[facility] [address] [place], [address] CBC W/Diff, Automatedon 08-19 Absolute Lymph 1.62 X10 3/uL Normal 0.83-4.51 [facility] Comment on above: Performed By: #### L 500.2500, L100.0100 ####[facility] [address] [place], [address] Absolute Neut 4.1 X10 3/uL Normal 2.0-7.7 [facility] Comment on above: Performed By: #### L 500.2500, L100.0100 ####[facility] [address] [place], [address] Basophils/100 WBC (Bld) 0.5 % Normal 0-1 [facility] Comment on above: Performed By: #### L 500.2500, L100.0100 ####[facility] [address] [place], [address] Eosinophils/100 WBC (Bld) 1.8 % Normal 0-5 [facility] Comment on above: Performed By: #### L 500.2500, L100.0100 ####[facility] [address] [place], [address] Erythrocyte distribution width (RBC) [Ratio] 14.2 % Normal 11.6-14.6 [facility] Comment on above: Performed By: #### L 500.2500, L100.0100 ####[facility] [address] [place], [address] Hematocrit (Bld) [Volume fraction] 41.8 % Normal 40-54 [facility] Comment on above: Performed By: #### L 500.2500, L100.0100 ####[facility] [address] [place], [address] Hemoglobin (Bld) [Mass/Vol] 13.6 g/dL Normal 13.0-16.5 [facility] Comment on above: Performed By: #### L 500.2500, L100.0100 ####[facility] [address] [place], [address] IG% 0.600 Normal 0.0-0.9 [facility] Comment on above: Result Comment: IG% - Immature Granulocytes (promyelocytes, myelocytes andmetamyelocytes) > 1% indicates that a LEFT SHIFT is Present. Performed By: #### L 500.2500, L100.0100 ####[facility] [address] [place], [address] Lymphocytes/100 WBC (Bld) 24.8 % Normal 19-41 [facility] Comment on above: Performed By: #### L 500.2500, L100.0100 ####[facility] [address] [place], [address] MCH (RBC) [Entitic mass] 30.9 pg Normal 27.0-32.0 [facility] Comment on above: Performed By: #### L 500.2500, L100.0100 ####[facility] [address] [place], [address] MCHC (RBC) [Mass/Vol] 32.5 g/dL Normal 32-36 [facility] Comment on above: Performed By: #### L 500.2500, L100.0100 ####[facility] [address] [place], [address] MCV (RBC) [Entitic vol] 95.0 fL High 80-94 [facility] Comment on above: Performed By: #### L 500.2500, L100.0100 ####[facility] [address] [place], [address] Monocytes/100 WBC (Bld) 8.9 % Normal 0-10 [facility] Comment on above: Performed By: #### L 500.2500, L100.0100 ####[facility] [address] [place], [address] Neutrophils/100 WBC (Bld) 63.4 % Normal 47-70 [facility] Comment on above: Performed By: #### L 500.2500, L100.0100 ####[facility] [address] [place], [address] Nucleated RBC (Bld) [#/Vol] 0 10*3/uL Normal 0-5 [facility] Comment on above: Performed By: #### L 500.2500, L100.0100 ####[facility] [address] [place], [address] Platelet mean volume (Bld) [Entitic vol] 11.9 fL Normal 6.2-12.0 [facility] Comment on above: Performed By: #### L 500.2500, L100.0100 ####[facility] [address] [place], [address] Platelets (Bld) [#/Vol] 153 10*3/uL Normal 150-450 [facility] Comment on above: Performed By: #### L 500.2500, L100.0100 ####[facility] [address] [place], [address] RBC (Bld) [#/Vol] 4.40 10*6/uL Low 4.6-6.2 [facility] Comment on above: Performed By: #### L 500.2500, L100.0100 ####[facility] [address] [place], [address] RDW SD 49.9 fl High 35.1-43.9 [facility] Comment on above: Performed By: #### L 500.2500, L100.0100 ####[facility] [address] [place], [address] WBC (Bld) [#/Vol] 6.5 10*3/uL Normal 4.4-11.0 [facility] Comment on above: Performed By: #### L 500.2500, L100.0100 ####[facility] [address] [place], [address] Basic Metabolic Profile (BMP )on 09-08-2023 BUN/CRE 23.4 RATIO High 10-20 [facility] Comment on above: Performed By: #### L 100.0100, L500.2500 ####[facility] [address] [place], [address] CA,Total 8.8 mg/dL Normal 8.5-10.1 [facility] Comment on above: Performed By: #### L 100.0100, L500.2500 ####[facility] [address] [place], [address] Chloride [Moles/Vol] 107 mmol/L Normal 98-107 [facility] Comment on above: Performed By: #### L 100.0100, L500.2500 ####[facility] [address] [place], [address] CO2 [Moles/Vol] 29.0 mmol/L Normal 21.0-32.0 [facility] Comment on above: Performed By: #### L 100.0100, L500.2500 ####[facility] [address] [place], [address] Creatinine [Mass/Vol] 0.85 mg/dL Normal 0.70-1.30 [facility] Comment on above: Result Comment: The validity of the calculated GFR GFRAA in patients over70 years has not been determined. Clinical correlation isessential. Performed By: #### L 100.0100, L500.2500 ####[facility] [address] [place], [address] ECRCL 96.45 ml/min Normal [facility] Comment on above: Performed By: #### L 100.0100, L500.2500 ####[facility] [address] [place], [address] EST GFR - AA 116 mL/min Normal >60 [facility] Comment on above: Result Comment: Afri can Filipino GFR Calc Performed By: #### L 100.0100, L500.2500 ####[facility] [address] [place], [address] GAP 5 Normal 5-15 [facility] Comment on above: Performed By: #### L 100.0100, L500.2500 ####[facility] [address] [place], [address] GFR/1.73 sq M.predicted among non-blacks MDRD (S/P/Bld) [Vol rate/Area] 96 mL/min/{1.73_m2} Normal >60 [facility] Comment on above: Result Comment: Non- GFR Calc Performed By: #### L 100.0100, L500.2500 ####[facility] [address] [place], [address] Glucose [Mass/Vol] 96 mg/dL Normal 74-106 [facility] Comment on above: Performed By: #### L 100.0100, L500.2500 ####[facility] [address] [place], [address] Potassium [Moles/Vol] 3.5 mmol/L Normal 3.5-5.1 [facility] Comment on above: Performed By: #### L 100.0100, L500.2500 ####[facility] [address] [place], [address] Sodium [Moles/Vol] 141 mmol/L Normal 136-145 [facility] Comment on above: Performed By: #### L 100.0100, L500.2500 ####[facility] [address] [place], [address] Urea nitrogen [Mass/Vol] 20 mg/dL High 7-18 [facility] Comment on above: Performed By: #### L 100.0100, L500.2500 ####[facility] [address] [place], [address] CBC W/Diff, Automatedon 07-2 Absolute Lymph 1.87 X10 3/uL Normal 0.83-4.51 [facility] Comment on above: Performed By: #### L 100.0100, L500.2500 ####[facility] [address] [place], [address] Absolute Neut 3.5 X10 3/uL Normal 2.0-7.7 [facility] Comment on above: Performed By: #### L 100.0100, L500.2500 ####[facility] [address] [place], [address] Basophils/100 WBC (Bld) 0.3 % Normal 0-1 [facility] Comment on above: Performed By: #### L 100.0100, L500.2500 ####[facility] [address] [place], [address] Eosinophils/100 WBC (Bld) 2.8 % Normal 0-5 [facility] Comment on above: Performed By: #### L 100.0100, L500.2500 ####[facility] [address] [place], [address] Erythrocyte distribution width (RBC) [Ratio] 14.4 % Normal 11.6-14.6 [facility] Comment on above: Performed By: #### L 100.0100, L500.2500 ####[facility] [address] [place], [address] Hematocrit (Bld) [Volume fraction] 39.1 % Low 40-54 [facility] Comment on above: Performed By: #### L 100.0100, L500.2500 ####[facility] [address] [place], [address] Hemoglobin (Bld) [Mass/Vol] 13.0 g/dL Normal 13.0-16.5 [facility] Comment on above: Performed By: #### L 100.0100, L500.2500 ####[facility] [address] [place], [address] IG% 0.300 Normal 0.0-0.9 [facility] Comment on above: Result Comment: IG% - Immature Granulocytes (promyelocytes, myelocytes andmetamyelocytes) > 1% indicates that a LEFT SHIFT is Present. Performed By: #### L 100.0100, L500.2500 ####[facility] [address] [place], [address] Lymphocytes/100 WBC (Bld) 30.8 % Normal 19-41 [facility] Comment on above: Performed By: #### L 100.0100, L500.2500 ####[facility] [address] [place], [address] MCH (RBC) [Entitic mass] 31.8 pg Normal 27.0-32.0 [facility] Comment on above: Performed By: #### L 100.0100, L500.2500 ####[facility] [address] [place], [address] MCHC (RBC) [Mass/Vol] 33.2 g/dL Normal 32-36 [facility] Comment on above: Performed By: #### L 100.0100, L500.2500 ####[facility] [address] [place], [address] MCV (RBC) [Entitic vol] 95.6 fL High 80-94 [facility] Comment on above: Performed By: #### L 100.0100, L500.2500 ####[facility] [address] [place], [address] Monocytes/100 WBC (Bld) 8.6 % Normal 0-10 [facility] Comment on above: Performed By: #### L 100.0100, L500.2500 ####[facility] [address] [place], [address] Neutrophils/100 WBC (Bld) 57.2 % Normal 47-70 [facility] Comment on above: Performed By: #### L 100.0100, L500.2500 ####[facility] [address] [place], [address] Nucleated RBC (Bld) [#/Vol] 0 10*3/uL Normal 0-5 [facility] Comment on above: Performed By: #### L 100.0100, L500.2500 ####[facility] [address] [place], [address] Platelet mean volume (Bld) [Entitic vol] 12.1 fL High 6.2-12.0 [facility] Comment on above: Performed By: #### L 100.0100, L500.2500 ####[facility] [address] [place], [address] Platelets (Bld) [#/Vol] 133 10*3/uL Low 150-450 [facility] Comment on above: Performed By: #### L 100.0100, L500.2500 ####[facility] [address] [place], [address] RBC (Bld) [#/Vol] 4.09 10*6/uL Low 4.6-6.2 [facility] Comment on above: Performed By: #### L 100.0100, L500.2500 ####[facility] [address] [place], [address] RDW SD 50.8 fl High 35.1-43.9 [facility] Comment on above: Performed By: #### L 100.0100, L500.2500 ####[facility] [address] [place], [address] WBC (Bld) [#/Vol] 6.1 10*3/uL Normal 4.4-11.0 [facility] Comment on above: Performed By: #### L 100.0100, L500.2500 ####[facility] [address] [place], [address] CBC,PLATELETSon 09-07-2023 Erythrocyte distribution width (RBC) [Ratio] 14.3 % 10.9 - 14.3 % [facility] Hematocrit (Bld) [Volume fraction] 43.1 % 39.6 - 48.8 % [facility] Hemoglobin (Bld) [Mass/Vol] 13.9 g/dL 13.4 - 16.8 g/dL [facility] Interpretation and review of laboratory results Abnormal [facility] MCH (RBC) [Entitic mass] 30.6 pg 26.1 - 33.3 pg [facility] MCHC (RBC) [Mass/Vol] 32.3 g/dL 31.9 - 36.5 g/dL [facility] MCV (RBC) [Entitic vol] 94.9 fL High 79.0 - 94.5 fL [facility] Platelet mean volume (Bld) [Entitic vol] 12.1 fL 8.7 - 12.3 fL [facility] Platelets (Bld) [#/Vol] 130 10*3/uL Low 146 - 337 K/uL [facility] RBC (Bld) [#/Vol] 4.54 10*6/uL [facility] WBC (Bld) [#/Vol] 6.88 10*3/uL 3.73 - 10. 10 K/uL [facility] Hematocrit (Bld) [Volume fraction] 43.1 % Normal 39.6-48.8 [facility] Comment on above: Performed By: #### [facility] [place] #### [facility] (DEFAULT) [address] [address] Hemoglobin (Bld) [Mass/Vol] 13.9 g/dL Normal 13.4-16.8 [facility] Comment on above: Performed By: #### H [facility] [place] #### [facility] (DEFAULT) [address] [place] [address] MCV (RBC) [Entitic vol] 94.9 fL High 79.0-94.5 [facility] Comment on above: Performed By: #### H EMO #### [facility] (DEFAULT) [address] [place] [address] Mean Cell Hgb 30.6 pg Normal 26.1-33.3 [facility] Comment on above: Performed By: #### H EMO #### [facility] (DEFAULT) [address] [place] [address] Mean Cell Hgb Conc 32.3 g/dL Normal 31.9-36.5 [facility] Comment on above: Performed By: #### H EMO #### [facility] (DEFAULT) [address] [place] [address] Platelet mean volume (Bld) [Entitic vol] 12.1 fL Normal 8.7-12.3 [facility] Comment on above: Performed By: #### H EMOGC #### [facility] (DEFAULT) [address] [place] [address] Platelets (Bld) [#/Vol] 130 10*3/uL Low 146-337 [facility] Comment on above: Performed By: #### H EMO #### [facility] (DEFAULT) [address] [place] [address] RBC (Bld) [#/Vol] 4.54 10*6/uL Normal 4.38-5.83 [facility] Comment on above: Performed By: #### H EMO #### [facility] (DEFAULT) [address] [place] [address] RBC Distribution 14.3 % Normal 10.9-14.3 [facility] Comment on above: Performed By: #### H EMO #### [facility] (DEFAULT) [address] [place] [address] WBC (Bld) [#/Vol] 6.88 10*3/uL Normal 3.73-10.10 [facility] Comment on above: Performed By: #### H EMOGC #### [facility] (DEFAULT) [address] [place] [address] CHEM 7 (LYTES,BUN,CREA,GLUC) on 09-07-2023 Anion gap [Moles/Vol] 14 mmol/L 7 - 17 mmol/L [facility] Chloride [Moles/Vol] 101 mmol/L 98 - 10 8 mmol/L [facility] CO2 [Moles/Vol] 29 mmol/L 21 - 31 mmol/L [facility] Creatinine [Mass/Vol] 1.07 mg/dL 0.70 - 1.30 mg/dL [facility] eGFR, CKD-EPI, Male 75 - PINF [facility] Comment on above: Reported eGFR is bas ed on the CKD-EPI 2020 equation using creatinine, age, and sex. Glucose [Mass/Vol] 110 mg/dL High 70 - 99 mg/dL [facility] Interpretation and review of laboratory results Abnormal [facility] Osmolality Calc [Osmolality] 294 [facility] Potassium [Moles/Vol] 3.7 mmol/L 3.5 - 5.0 mmol/L [facility] Sodium [Moles/Vol] 140 mmol/L 135 - 145 mmol/L [facility] Urea nitrogen [Mass/Vol] 16 mg/dL 7 - 25 mg/dL [facility] Urea nitrogen/Creatinine [Mass ratio] 15 mg/mg [facility] Anion gap [Moles/Vol] 14 mmol/L Normal 7-17 [facility] Comment on above: Performed By: #### C HM7 #### [facility] (DEFAULT) [address] [address] Chloride [Moles/Vol] 101 mmol/L Normal 98-108 [facility] Comment on above: Performed By: #### C HM7 #### [facility] (DEFAULT) [address] [address] CO2 [Moles/Vol] 29 mmol/L Normal 21-31 [facility] Comment on above: Performed By: #### C HM7 #### [facility] (DEFAULT) [address] [address] Creatinine [Mass/Vol] 1.07 mg/dL Normal 0.70-1.30 [facility] Comment on above: Performed By: #### C HM7 #### [facility] (DEFAULT) [address] [address] GFR/1.73 sq M.predicted among non-blacks MDRD (S/P/Bld) [Vol rate/Area] 77 mL/min/{1.73_m2} Normal >=60 [facility] Comment on above: Result Comment: Repo rted eGFR is based on the CKD-EPI 2020 equation using creatinine, age, and sex. Performed By: #### C HM7 #### [facility] (DEFAULT) [address] [place] [address] Glucose [Mass/Vol] 110 mg/dL High 70-99 [facility] Comment on above: Performed By: #### C HM7 #### [facility] (DEFAULT) [address] [place] [address] Osmolality [Osmolality] 294 mosm/kg Normal 278-305 [facility] Comment on above: Performed By: #### C HM7 #### [facility] (DEFAULT) [address] [place] [address] Potassium [Moles/Vol] 3.7 mmol/L Normal 3.5-5.0 [facility] Comment on above: Performed By: #### C HM7 #### [facility] (DEFAULT) [address] [place] [address] Sodium [Moles/Vol] 140 mmol/L Normal 135-145 [facility] Comment on above: Performed By: #### C HM7 #### [facility] (DEFAULT) [address] [place] [address] Urea nitrogen [Mass/Vol] 16 mg/dL Normal 7-25 [facility] Comment on above: Performed By: #### C HM7 #### [facility] (DEFAULT) [address] [place] [address] Urea nitrogen/Creatinine [Mass ratio] 15 mg/mg Normal [facility] Comment on above: Performed By: #### C HM7 #### [facility] (DEFAULT) [address] [place] [address] CBC,PLATELETSon 09-06-2023 Erythrocyte distribution width (RBC) [Ratio] 14.4 % High 10.9 - 14.3 % [facility] Hematocrit (Bld) [Volume fraction] 43.0 % 39.6 - 48.8 % [facility] Hemoglobin (Bld) [Mass/Vol] 14.1 g/dL 13.4 - 16.8 g/dL [facility] Interpretation and review of laboratory results Abnormal [facility] MCH (RBC) [Entitic mass] 31.0 pg 26.1 - 33.3 pg [facility] MCHC (RBC) [Mass/Vol] 32.8 g/dL 31.9 - 36.5 g/dL [facility] MCV (RBC) [Entitic vol] 94.5 fL 79.0 - 94.5 fL [facility] Platelet mean volume (Bld) [Entitic vol] [facility] Comment on above: Not measured Platelets (Bld) [#/Vol] 137 10*3/uL Low 146 - 337 K/uL [facility] RBC (Bld) [#/Vol] 4.55 10*6/uL [facility] WBC (Bld) [#/Vol] 7.62 10*3/uL 3.73 - 10. 10 K/uL [facility] Hematocrit (Bld) [Volume fraction] 43.0 % Normal 39.6-48.8 [facility] Comment on above: Performed By: #### H [facility] [place] #### [facility] (DEFAULT) [address] [address] Hemoglobin (Bld) [Mass/Vol] 14.1 g/dL Normal 13.4-16.8 [facility] Comment on above: Performed By: #### H [facility] [place] #### [facility] (DEFAULT) [address] [place] [address] MCV (RBC) [Entitic vol] 94.5 fL Normal 79.0-94.5 [facility] Comment on above: Performed By: #### H [facility] [place] #### [facility] (DEFAULT) [address] [place] [address] Mean Cell Hgb 31.0 pg Normal 26.1-33.3 [facility] Comment on above: Performed By: #### H EMOGC #### [facility] (DEFAULT) [address] [address] Mean Cell Hgb Conc 32.8 g/dL Normal 31.9-36.5 [facility] Comment on above: Performed By: #### H EMOGC #### [facility] (DEFAULT) [address] [address] Mean Platelet Volume Normal [facility] Comment on above: Result Comment: Not measured Performed By: #### H EMOGC #### [facility] (DEFAULT) [address] [address] Platelets (Bld) [#/Vol] 137 10*3/uL Low 146-337 [facility] Comment on above: Performed By: #### H EMODUNCAN #### [facility] (DEFAULT) [address] [address] RBC (Bld) [#/Vol] 4.55 10*6/uL Normal 4.38-5.83 [facility] Comment on above: Performed By: #### H EMOGC #### [facility] (DEFAULT) [address] [address] RBC Distribution 14.4 % High 10.9-14.3 [facility] Comment on above: Performed By: #### H EMOGC #### [facility] (DEFAULT) [address] [address] WBC (Bld) [#/Vol] 7.62 10*3/uL Normal 3.73-10.10 [facility] Comment on above: Performed By: #### H EMOGC #### [facility] (DEFAULT) [address] [address] CHEM 7 (LYTES,BUN,CREA,GLUC) on 09-06-2023 Anion gap [Moles/Vol] 15 mmol/L 7 - 17 mmol/L [facility] Chloride [Moles/Vol] 102 mmol/L 98 - 10 8 mmol/L [facility] CO2 [Moles/Vol] 27 mmol/L 21 - 31 mmol/L [facility] Creatinine [Mass/Vol] 1.07 mg/dL 0.70 - 1.30 mg/dL [facility] eGFR, CKD-EPI, Male 75 - PINF [facility] Comment on above: Reported eGFR is bas ed on the CKD-EPI 2020 equation using creatinine, age, and sex. Glucose [Mass/Vol] 68 mg/dL Low 70 - 99 mg/dL [facility] Interpretation and review of laboratory results Abnormal [facility] Osmolality Calc [Osmolality] 292 [facility] Potassium [Moles/Vol] 4.0 mmol/L 3.5 - 5.0 mmol/L [facility] Comment on above: Specimen hemolyzed. Potassium results may be falsely elevated masking hypokalemia. Interpret within the clinical context. Sodium [Moles/Vol] 140 mmol/L 135 - 145 mmol/L [facility] Urea nitrogen [Mass/Vol] 16 mg/dL 7 - 25 mg/dL [facility] Urea nitrogen/Creatinine [Mass ratio] 15 mg/mg [facility] Anion gap [Moles/Vol] 15 mmol/L Normal 7-17 [facility] Comment on above: Performed By: #### C HM7 #### [facility] (DEFAULT) [address] [place] [address] Chloride [Moles/Vol] 102 mmol/L Normal 98-108 [facility] Comment on above: Performed By: #### C HM7 #### [facility] (DEFAULT) [address] [place] [address] CO2 [Moles/Vol] 27 mmol/L Normal 21-31 [facility] Comment on above: Performed By: #### C HM7 #### [facility] (DEFAULT) [address] [place] [address] Creatinine [Mass/Vol] 1.07 mg/dL Normal 0.70-1.30 [facility] Comment on above: Performed By: #### C HM7 #### [facility] (DEFAULT) [address] [address] GFR/1.73 sq M.predicted among non-blacks MDRD (S/P/Bld) [Vol rate/Area] 77 mL/min/{1.73_m2} Normal >=60 [facility] Comment on above: Result Comment: Repo rted eGFR is based on the CKD-EPI 2020 equation using creatinine, age, and sex. Performed By: #### C HM7 #### [facility] (DEFAULT) [address] [address] Glucose [Mass/Vol] 68 mg/dL Low 70-99 [facility] Comment on above: Performed By: #### C HM7 #### [facility] (DEFAULT) [address] [address] Osmolality [Osmolality] 292 mosm/kg Normal 278-305 [facility] Comment on above: Performed By: #### C HM7 #### [facility] (DEFAULT) [address] [address] Potassium [Moles/Vol] 4.0 mmol/L Normal 3.5-5.0 [facility] Comment on above: Result Comment: Spec imen hemolyzed. Potassium results may be falsely elevated masking hypokalemia. Interpret within the clinical context. Performed By: #### C HM7 #### [facility] (DEFAULT) [address] [address] Sodium [Moles/Vol] 140 mmol/L Normal 135-145 [facility] Comment on above: Performed By: #### C HM7 #### [facility] (DEFAULT) [address] [address] Urea nitrogen [Mass/Vol] 16 mg/dL Normal 7-25 [facility] Comment on above: Performed By: #### C HM7 #### [facility] (DEFAULT) [address] [place] [address] Urea nitrogen/Creatinine [Mass ratio] 15 mg/mg Normal [facility] [facility] Comment on above: Performed By: #### C HM7 #### [facility] (DEFAULT) [address] [place] [address] GLUCOSE POCon 09-06-2023 Glucose [Mass/Vol] 98 mg/dL 70 - 99 mg/dL [facility] POC Sample Type CAPBL [facility] Test performed at address of the patient encounter. [facility] CBC,PLATELETSon 09-05-2023 Erythrocyte distribution width (RBC) [Ratio] 14.6 % High 10.9 - 14.3 % [facility] Hematocrit (Bld) [Volume fraction] 40.7 % 39.6 - 48.8 % [facility] Hemoglobin (Bld) [Mass/Vol] 13.5 g/dL 13.4 - 16.8 g/dL [facility] Interpretation and review of laboratory results Abnormal [facility] MCH (RBC) [Entitic mass] 31.4 pg 26.1 - 33.3 pg [facility] MCHC (RBC) [Mass/Vol] 33.2 g/dL 31.9 - 36.5 g/dL [facility] MCV (RBC) [Entitic vol] 94.7 fL High 79.0 - 94.5 fL [facility] Platelet mean volume (Bld) [Entitic vol] 12.0 fL 8.7 - 12.3 fL [facility] Platelets (Bld) [#/Vol] 130 10*3/uL Low 146 - 337 K/uL [facility] RBC (Bld) [#/Vol] 4.30 10*6/uL Low [facility] WBC (Bld) [#/Vol] 8.06 10*3/uL 3.73 - 10. 10 K/uL [facility] Hematocrit (Bld) [Volume fraction] 40.7 % Normal 39.6-48.8 [facility] Comment on above: Performed By: #### H EMOGC #### [facility] (DEFAULT) [address] [place] [address] Hemoglobin (Bld) [Mass/Vol] 13.5 g/dL Normal 13.4-16.8 [facility] Comment on above: Performed By: #### H EMOGC #### [facility] (DEFAULT) [address] [address] MCV (RBC) [Entitic vol] 94.7 fL High 79.0-94.5 [facility] Comment on above: Performed By: #### H EMOGC #### [facility] (DEFAULT) [address] [address] Mean Cell Hgb 31.4 pg Normal 26.1-33.3 [facility] Comment on above: Performed By: #### H EMOGC #### [facility] (DEFAULT) [address] [address] Mean Cell Hgb Conc 33.2 g/dL Normal 31.9-36.5 [facility] Comment on above: Performed By: #### H EMOGC #### [facility] (DEFAULT) [address] [address] Platelet mean volume (Bld) [Entitic vol] 12.0 fL Normal 8.7-12.3 [facility] Comment on above: Performed By: #### H EMOGC #### [facility] (DEFAULT) [address] [address] Platelets (Bld) [#/Vol] 130 10*3/uL Low 146-337 [facility] Comment on above: Performed By: #### H EMOGC #### [facility] (DEFAULT) [address] [address] RBC (Bld) [#/Vol] 4.30 10*6/uL Low 4.38-5.83 [facility] Comment on above: Performed By: #### [facility] [place] #### [facility] (DEFAULT) [address] [place] [address] RBC Distribution 14.6 % High 10.9-14.3 [facility] Comment on above: Performed By: #### H [facility] [place] #### [facility] (DEFAULT) [address] [place] [address] WBC (Bld) [#/Vol] 8.06 10*3/uL Normal 3.73-10.10 [facility] Comment on above: Performed By: #### H [facility] [place] #### [facility] (DEFAULT) [address] [place] [address] CHEM 7 (LYTES,BUN,CREA,GLUC) on 09-05-2023 Anion gap [Moles/Vol] 12 mmol/L 7 - 17 mmol/L [facility] Chloride [Moles/Vol] 105 mmol/L 98 - 10 8 mmol/L [facility] CO2 [Moles/Vol] 26 mmol/L 21 - 31 mmol/L [facility] Creatinine [Mass/Vol] 0.98 mg/dL 0.70 - 1.30 mg/dL [facility] eGFR, CKD-EPI, Male 86 - PINF [facility] Comment on above: Reported eGFR is bas ed on the CKD-EPI 2020 equation using creatinine, age, and sex. Glucose [Mass/Vol] 95 mg/dL 70 - 99 mg/dL [facility] Osmolality Calc [Osmolality] 292 [facility] Potassium [Moles/Vol] 3.6 mmol/L 3.5 - 5.0 mmol/L [facility] Sodium [Moles/Vol] 139 mmol/L 135 - 145 mmol/L [facility] Urea nitrogen [Mass/Vol] 20 mg/dL 7 - 25 mg/dL [facility] Urea nitrogen/Creatinine [Mass ratio] 20 mg/mg [facility] Anion gap [Moles/Vol] 12 mmol/L Normal 7-17 [facility] Comment on above: Performed By: #### C HM7 #### U [facility] (DEFAULT) [address] [place] [address] Chloride [Moles/Vol] 105 mmol/L Normal 98-108 [facility] Comment on above: Performed By: #### C HM7 #### [facility] (DEFAULT) [address] [place] [address] CO2 [Moles/Vol] 26 mmol/L Normal 21-31 [facility] Comment on above: Performed By: #### C HM7 #### [facility] (DEFAULT) [address] [place] [address] Creatinine [Mass/Vol] 0.98 mg/dL Normal 0.70-1.30 [facility] Comment on above: Performed By: #### C HM7 #### [facility] (DEFAULT) [address] [place] [address] GFR/1.73 sq M.predicted among non-blacks MDRD (S/P/Bld) [Vol rate/Area] 86 mL/min/{1.73_m2} Normal >=60 [facility] Comment on above: Result Comment: Repo rted eGFR is based on the CKD-EPI 2020 equation using creatinine, age, and sex. Performed By: #### C HM7 #### [facility] (DEFAULT) [address] [place] [address] Glucose [Mass/Vol] 95 mg/dL Normal 70-99 [facility] Comment on above: Performed By: #### C HM7 #### [facility] (DEFAULT) [address] [place] [address] Osmolality [Osmolality] 292 mosm/kg Normal 278-305 [facility] Comment on above: Performed By: #### C HM7 #### [facility] (DEFAULT) [address] [place] [address] Potassium [Moles/Vol] 3.6 mmol/L Normal 3.5-5.0 [facility] Comment on above: Performed By: #### C HM7 #### [facility] (DEFAULT) [address] [place] [address] Sodium [Moles/Vol] 139 mmol/L Normal 135-145 [facility] Comment on above: Performed By: #### C HM7 #### [facility] (DEFAULT) [address] [place] [address] Urea nitrogen [Mass/Vol] 20 mg/dL Normal 7-25 [facility] Comment on above: Performed By: #### C HM7 #### [facility] (DEFAULT) [address] [place] [address] Urea nitrogen/Creatinine [Mass ratio] 20 mg/mg Normal [facility] Comment on above: Performed By: #### C HM7 #### [facility] (DEFAULT) [address] [place] [address] CBC,PLATELETSon 09-04-2023 Erythrocyte distribution width (RBC) [Ratio] 14.2 % 10.9 - 14.3 % [facility] Hematocrit (Bld) [Volume fraction] 49.3 % High 39.6 - 48.8 % [facility] Hemoglobin (Bld) [Mass/Vol] 15.9 g/dL 13.4 - 16.8 g/dL [facility] Interpretation and review of laboratory results Abnormal [facility] MCH (RBC) [Entitic mass] 30.8 pg 26.1 - 33.3 pg [facility] MCHC (RBC) [Mass/Vol] 32.3 g/dL 31.9 - 36.5 g/dL [facility] MCV (RBC) [Entitic vol] 95.4 fL High 79.0 - 94.5 fL [facility] Platelet mean volume (Bld) [Entitic vol] 12.2 fL 8.7 - 12.3 fL [facility] Platelets (Bld) [#/Vol] 148 10*3/uL 146 - 337 K/uL [facility] RBC (Bld) [#/Vol] 5.17 10*6/uL [facility] WBC (Bld) [#/Vol] 9.79 10*3/uL 3.73 - 10. 10 K/uL [facility] Hematocrit (Bld) [Volume fraction] 49.3 % High 39.6-48.8 [facility] Comment on above: Performed By: #### H EMOGC #### [facility] (DEFAULT) [address] [address] Hemoglobin (Bld) [Mass/Vol] 15.9 g/dL Normal 13.4-16.8 [facility] Comment on above: Performed By: #### H EMOGC #### [facility] (DEFAULT) [address] [address] MCV (RBC) [Entitic vol] 95.4 fL High 79.0-94.5 [facility] Comment on above: Performed By: #### H EMOGC #### [facility] (DEFAULT) [address] [address] Mean Cell Hgb 30.8 pg Normal 26.1-33.3 [facility] Comment on above: Performed By: #### H EMOGC #### [facility] (DEFAULT) [address] [address] Mean Cell Hgb Conc 32.3 g/dL Normal 31.9-36.5 [facility] Comment on above: Performed By: #### H EMOGC #### [facility] (DEFAULT) [address] [address] Platelet mean volume (Bld) [Entitic vol] 12.2 fL Normal 8.7-12.3 [facility] Comment on above: Performed By: #### H EMOGC #### [facility] (DEFAULT) [address] [address] Platelets (Bld) [#/Vol] 148 10*3/uL Normal 146-337 [facility] Comment on above: Performed By: #### H [facility] [place] #### [facility] (DEFAULT) [address] [place] [address] RBC (Bld) [#/Vol] 5.17 10*6/uL Normal 4.38-5.83 [facility] Comment on above: Performed By: #### H EMOGC #### [facility] (DEFAULT) [address] [place] [address] RBC Distribution 14.2 % Normal 10.9-14.3 [facility] Comment on above: Performed By: #### H [facility] [place] #### [facility] (DEFAULT) [address] [place] [address] WBC (Bld) [#/Vol] 9.79 10*3/uL Normal 3.73-10.10 [facility] Comment on above: Performed By: #### H [facility] [place] #### [facility] (DEFAULT) [address] [place] [address] CHEM 7 (LYTES,BUN,CREA,GLUC) Ordered By: Homar Scott on 09-04-2023 Anion gap [Moles/Vol] 17 mmol/L 7 - 17 mmol/L [facility] Chloride [Moles/Vol] 101 mmol/L 98 - 10 8 mmol/L [facility] CO2 [Moles/Vol] 27 mmol/L 21 - 31 mmol/L [facility] Creatinine [Mass/Vol] 0.97 mg/dL 0.70 - 1.30 mg/dL [facility] eGFR, CKD-EPI, Male 87 - PINF [facility] Comment on above: Reported eGFR is bas ed on the CKD-EPI 2020 equation using creatinine, age, and sex. Glucose [Mass/Vol] 98 mg/dL 70 - 99 mg/dL [facility] Osmolality Calc [Osmolality] 295 [facility] Potassium [Moles/Vol] 3.7 mmol/L 3.5 - 5.0 mmol/L [facility] Sodium [Moles/Vol] 141 mmol/L 135 - 145 mmol/L [facility] Urea nitrogen [Mass/Vol] 17 mg/dL 7 - 25 mg/dL [facility] Urea nitrogen/Creatinine [Mass ratio] 18 mg/mg [facility] CHEM 7 (LYTES,BUN,CREA,GLUC) on 09-04-2023 Anion gap [Moles/Vol] 17 mmol/L Normal 7-17 [facility] Comment on above: Performed By: #### C HM7 #### [facility] (DEFAULT) [address] [place] [address] Chloride [Moles/Vol] 101 mmol/L Normal 98-108 [facility] Comment on above: Performed By: #### C HM7 #### [facility] (DEFAULT) [address] [place] [address] CO2 [Moles/Vol] 27 mmol/L Normal 21-31 [facility] Comment on above: Performed By: #### C HM7 #### [facility] (DEFAULT) [address] [place] [address] Creatinine [Mass/Vol] 0.97 mg/dL Normal 0.70-1.30 [facility] Comment on above: Performed By: #### C HM7 #### [facility] (DEFAULT) [address] [place] [address] GFR/1.73 sq M.predicted among non-blacks MDRD (S/P/Bld) [Vol rate/Area] 87 mL/min/{1.73_m2} Normal >=60 [facility] Comment on above: Result Comment: Repo rted eGFR is based on the CKD-EPI 2020 equation using creatinine, age, and sex. Performed By: #### C HM7 #### [facility] (DEFAULT) [address] [place] [address] Glucose [Mass/Vol] 98 mg/dL Normal 70-99 [facility] Comment on above: Performed By: #### C HM7 #### [facility] (DEFAULT) [address] [place] [address] Osmolality [Osmolality] 295 mosm/kg Normal 278-305 [facility] Comment on above: Performed By: #### C HM7 #### [facility] (DEFAULT) [address] [place] [address] Potassium [Moles/Vol] 3.7 mmol/L Normal 3.5-5.0 [facility] Comment on above: Performed By: #### C HM7 #### [facility] (DEFAULT) [address] [place] [address] Sodium [Moles/Vol] 141 mmol/L Normal 135-145 [facility] Comment on above: Performed By: #### C HM7 #### [facility] (DEFAULT) [address] [place] [address] Urea nitrogen [Mass/Vol] 17 mg/dL Normal 7-25 [facility] Comment on above: Performed By: #### C HM7 #### [facility] (DEFAULT) [address] [place] [address] Urea nitrogen/Creatinine [Mass ratio] 18 mg/mg Normal [facility] Comment on above: Performed By: #### C HM7 #### [facility] (DEFAULT) [address] [place] [address] CBC,PLATELETSon 09-03-2023 Erythrocyte distribution width (RBC) [Ratio] 14.2 % 10.9 - 14.3 % [facility] Hematocrit (Bld) [Volume fraction] 46.8 % 39.6 - 48.8 % [facility] Hemoglobin (Bld) [Mass/Vol] 14.9 g/dL 13.4 - 16.8 g/dL [facility] Interpretation and review of laboratory results Abnormal [facility] MCH (RBC) [Entitic mass] 30.3 pg 26.1 - 33.3 pg [facility] MCHC (RBC) [Mass/Vol] 31.8 g/dL Low 31.9 - 36.5 g/dL [facility] MCV (RBC) [Entitic vol] 95.3 fL High 79.0 - 94.5 fL [facility] Platelet mean volume (Bld) [Entitic vol] 12.0 fL 8.7 - 12.3 fL [facility] Platelets (Bld) [#/Vol] 137 10*3/uL Low 146 - 337 K/uL [facility] RBC (Bld) [#/Vol] 4.91 10*6/uL [facility] WBC (Bld) [#/Vol] 10.04 10*3/uL 3.73 - 10 .10 K/uL [facility] Hematocrit (Bld) [Volume fraction] 46.8 % Normal 39.6-48.8 [facility] Comment on above: Performed By: #### H EMO #### [facility] (DEFAULT) [address] [address] Hemoglobin (Bld) [Mass/Vol] 14.9 g/dL Normal 13.4-16.8 [facility] Comment on above: Performed By: #### H EMO #### [facility] (DEFAULT) [address] [address] MCV (RBC) [Entitic vol] 95.3 fL High 79.0-94.5 [facility] Comment on above: Performed By: #### H EMOGC #### [facility] (DEFAULT) [address] [address] Mean Cell Hgb 30.3 pg Normal 26.1-33.3 [facility] Comment on above: Performed By: #### H EMOGC #### [facility] (DEFAULT) [address] [address] Mean Cell Hgb Conc 31.8 g/dL Low 31.9-36.5 [facility] Comment on above: Performed By: #### H EMOGC #### [facility] (DEFAULT) [address] [address] Platelet mean volume (Bld) [Entitic vol] 12.0 fL Normal 8.7-12.3 [facility] Comment on above: Performed By: #### H EMO #### [facility] (DEFAULT) [address] [place] [address] Platelets (Bld) [#/Vol] 137 10*3/uL Low 146-337 [facility] Comment on above: Performed By: #### H EMO #### [facility] (DEFAULT) [address] [place] [address] RBC (Bld) [#/Vol] 4.91 10*6/uL Normal 4.38-5.83 [facility] Comment on above: Performed By: #### H EMO #### [facility] (DEFAULT) [address] [place] [address] RBC Distribution 14.2 % Normal 10.9-14.3 [facility] Comment on above: Performed By: #### H EMO #### [facility] (DEFAULT) [address] [place] [address] WBC (Bld) [#/Vol] 10.04 10*3/uL Normal 3.73-10.10 [facility] Comment on above: Performed By: #### H EMO #### [facility] (DEFAULT) [address] [place] [address] CHEM 7 (LYTES,BUN,CREA,GLUC) on 09-03-2023 Anion gap [Moles/Vol] 13 mmol/L 7 - 17 mmol/L [facility] Chloride [Moles/Vol] 104 mmol/L 98 - 10 8 mmol/L [facility] CO2 [Moles/Vol] 28 mmol/L 21 - 31 mmol/L [facility] Creatinine [Mass/Vol] 0.89 mg/dL 0.70 - 1.30 mg/dL [facility] eGFR, CKD-EPI, Male - PINF [facility] Comment on above: Reported eGFR is bas ed on the CKD-EPI 2020 equation using creatinine, age, and sex. Glucose [Mass/Vol] 134 mg/dL High 70 - 99 mg/dL [facility] Interpretation and review of laboratory results Abnormal [facility] Osmolality Calc [Osmolality] 298 [facility] Potassium [Moles/Vol] 4.7 mmol/L 3.5 - 5.0 mmol/L [facility] Sodium [Moles/Vol] 140 mmol/L 135 - 145 mmol/L [facility] Urea nitrogen [Mass/Vol] 18 mg/dL 7 - 25 mg/dL [facility] Urea nitrogen/Creatinine [Mass ratio] 20 mg/mg [facility] Anion gap [Moles/Vol] 13 mmol/L Normal 7-17 [facility] Comment on above: Performed By: #### C HM7 #### [facility] (DEFAULT) [address] [place] [address] Chloride [Moles/Vol] 104 mmol/L Normal 98-108 [facility] Comment on above: Performed By: #### C HM7 #### [facility] (DEFAULT) [address] [place] [address] CO2 [Moles/Vol] 28 mmol/L Normal 21-31 [facility] Comment on above: Performed By: #### C HM7 #### [facility] (DEFAULT) [address] [place] [address] Creatinine [Mass/Vol] 0.89 mg/dL Normal 0.70-1.30 [facility] Comment on above: Performed By: #### C HM7 #### [facility] (DEFAULT) [address] [place] [address] eGFR, CKD-EPI, Male > Normal >=60 [facility] Comment on above: Result Comment: Repo rted eGFR is based on the CKD-EPI 2020 equation using creatinine, age, and sex. Performed By: #### C HM7 #### [facility] (DEFAULT) [address] [place] [address] Glucose [Mass/Vol] 134 mg/dL High 70-99 [facility] Comment on above: Performed By: #### C HM7 #### [facility] (DEFAULT) [address] [place] [address] Osmolality [Osmolality] 298 mosm/kg Normal 278-305 [facility] Comment on above: Performed By: #### C HM7 #### [facility] (DEFAULT) [address] [place] [address] Potassium [Moles/Vol] 4.7 mmol/L Normal 3.5-5.0 [facility] Comment on above: Performed By: #### C HM7 #### [facility] (DEFAULT) [address] [place] [address] Sodium [Moles/Vol] 140 mmol/L Normal 135-145 [facility] Comment on above: Performed By: #### C HM7 #### [facility] (DEFAULT) [address] [place] [address] Urea nitrogen [Mass/Vol] 18 mg/dL Normal 7-25 [facility] Comment on above: Performed By: #### C HM7 #### [facility] (DEFAULT) [address] [place] [address] Urea nitrogen/Creatinine [Mass ratio] 20 mg/mg Normal [facility] Comment on above: Performed By: #### C HM7 #### [facility] (DEFAULT) [address] [place] [address] CARDIAC RHYTHM (SCANNED)on 0 09-02-2023 [facility] Portable XR Chest Viewson IMPRESSION: New bibasilar atelectasis status post placement of properly positioned tracheostomy tube. OLOGY EXAM: XR CHEST 1 VIE W PORTABLE, 09/02/2023 16:51 PM COMPARISON: 08/13/2023 CLINICAL INDICATIONS: new tracheostomy RELEVANT CLINICAL HISTORY: Upon arrival to PACU/SICU if new trach or feeding tube placed.; FINDINGS: (Adequate technique) New placement of properly positioned tracheostomy tube. New bibasilar atelectasis is more on the left. No other change. RADIOLOGY Arlen Eastman MD - 09/02/2023 EXAM: XR CHEST 1 VIEW PORTABLE, 09/02/2023 16:51 PM COMPARISON: 08/13/2023 CLINICAL INDICATIONS: new tracheostomy RELEVANT CLINICAL HISTORY: Upon arrival to PACU/SICU if new trach or feeding tube placed.; FINDINGS: (Adequate technique) New placement of properly positioned tracheostomy tube. New bibasilar atelectasis is more on the left. No other change. IMPRESSION IMPRESSION: New bibasilar atelectasis status post placement of properly positioned tracheostomy tube. U [facility] Radiology Study observation (narrative) [facility] Portable XR Chest ViewsOrder ed By: Arlen Eastman on 09-02-2023 [facility] Work Phone: XR CHEST 1 VIEW PORTABLEon 0 09-02-2023 XR CHEST 1 VIEW PORTABLE EXAM: XR CHEST 1 VIEW PORTABLE, 09/02/2023 16:51 PM COMPARISON: 08/13/2023 CLINICAL INDICATIONS: new tracheostomy RELEVANT CLINICAL HISTORY: Upon arrival to PACU/SICU if new trach or feeding tube placed.; FINDINGS: (Adequate technique) New placement of properly positioned tracheostomy tube. New bibasilar atelectasis is more on the left. No other change. IMPRESSION: New bibasilar atelectasis status post placement of properly positioned tracheostomy tube. Normal [facility] Basophil percentageOrdered B y: Brenda Coker on 06-25-2023 Chloride [Moles/Vol] 105 mmol/L 98-[address] [facility] Glucose [Mass/Vol] 118 mg/dL 74-106 [facility] Comment on above: Fasting Glucose resu lt from 100 to 125 mg/dL suggests IMPAIRED HOMEOSTASIS per A.D.A. criteria. Potassium [Moles/Vol] 3.9 mmol/L 3.5-5.1 [facility] Sodium [Moles/Vol] 138 mmol/L 136-145 [facility] Laboratory - Chemistry and C hemistry - challengeOrdered By: Brenda Coker on 06-25-2023 CO2 [Moles/Vol] 29.0 mmol/L 21.0-32.0 [facility] Urea nitrogen/Creatinine [Mass ratio] 13.1 mg/mg 10-20 [facility] No Panel InformationOrdered By: Brenda Coker on 06-25-2023 Estimated GFR (MDRD) Amer 71 mL/min >60 [facility] Comment on above: GFR Calc Estimated GFR (MDRD) Non-Af Amer 59 mL/min >60 [facility] Comment on above: Non- GFR Calc Serum or plasma calcium leona urement (mass/volume)Ordered By: Brenda Coker on 06-25-2023 Calcium [Mass/Vol] 9.0 mg/dL 8.5-10.1 [facility] Serum or plasma creatinine m easurement (mass/volume)Ordered By: Brenda Coker on 06-25-2023 Creatinine [Mass/Vol] 1.30 mg/dL 0.70-1.30 [facility] Comment on above: The validity of the calculated GFR & GFRAA in patients over 70 years has not been determined. Clinical correlation is essential. Serum or plasma urea nitroge n measurement (mass/volume)Ordered By: Brenda Coker on 06-25-2023 Urea nitrogen [Mass/Vol] 17 mg/dL 7-18 [facility] Thin prep Papanicolaou smear with manual screeningOrdered By: Brenda Coker on 06-25-2023 Thin prep Papanicolaou smear with manual screening 4 5-15 [facility] Basophil percentageOrdered B y: Gilbert Hoang on 06-18-2023 Bilirubin [Mass/Vol] 1.30 mg/dL 0.20-1.00 [facility] Comment on above: For patients on eltr ombopag therapy, use of Dimension [place] TBIL is not recommended. Chloride [Moles/Vol] 103 mmol/L 98-107 [facility] Glucose [Mass/Vol] 96 mg/dL 74-106 [facility] Potassium [Moles/Vol] 3.3 mmol/L 3.5-5.1 [facility] Protein [Mass/Vol] 7.9 g/dL 6.4-8.2 [facility] Sodium [Moles/Vol] 139 mmol/L 136-145 [facility] Laboratory - Chemistry and C hemistry - challengeOrdered By: Gilbert Hoang on 06-18-2023 Albumin/Globulin [Mass ratio] 1.0 {ratio} 0.9-2.4 [facility] ALP [Catalytic activity/Vol] 84 U/L 45-117 [facility] ALT [Catalytic activity/Vol] U/L 16-61 [facility] CO2 [Moles/Vol] 32.0 mmol/L 21.0-32.0 [facility] Globulin (S) [Mass/Vol] 3.9 g/dL 2.2-4.2 [facility] Urea nitrogen/Creatinine [Mass ratio] 13.5 mg/mg 10-20 [facility] No Panel InformationOrdered By: Gilebrt Hoang on 06-18-2023 Estimated GFR (MDRD) Amer 92 mL/min >60 [facility] Comment on above: GFR Calc Estimated GFR (MDRD) Non-Af Amer 76 mL/min >60 [facility] Comment on above: Non- GFR Calc Serum or plasma calcium leona urement (mass/volume)Ordered By: Gilbert Hoang on 06-18-2023 Calcium [Mass/Vol] 9.6 mg/dL 8.5-10.1 [facility] Serum or plasma creatinine m easurement (mass/volume)Ordered By: Gilbert Hoang on 06-18-2023 Creatinine [Mass/Vol] 1.04 mg/dL 0.70-1.30 [facility] Comment on above: The validity of the calculated GFR & GFRAA in patients over 70 years has not been determined. Clinical correlation is essential. Serum or plasma urea nitroge n measurement (mass/volume)Ordered By: Gilbert Hoang on 06-18-2023 Urea nitrogen [Mass/Vol] 14 mg/dL 7-18 [facility] Thin prep Papanicolaou smear with manual screeningOrdered By: Gilbert Hoang on 06-18-2023 Thin prep Papanicolaou smear with manual screening 4.0 g/dL 3.2-5.0 [facility] Thin prep Papanicolaou smear with manual screening 15 U/L 15-37 [facility] Thin prep Papanicolaou smear with manual screening 4 5-15 [facility] Gram stain for investigation of transfusion reactionOrdered By: Karen Lora on 05-17-2023 Microscopic observation Gram stain Nom (Unsp spec) [facility] Microbial respiratory cultur eOrdered By: Karen Lora on 05-17-2023 Bacteria identified Respiratory culture Nom (Unsp spec) [facility] Basophil percentageOrdered B y: Karen Lora on 05-16-2023 Chloride [Moles/Vol] 102 mmol/L 98-107 [facility] Glucose [Mass/Vol] 82 mg/dL 74-106 [facility] Potassium [Moles/Vol] 3.3 mmol/L 3.5-5.1 [facility] Sodium [Moles/Vol] 137 mmol/L 136-145 [facility] Laboratory - Chemistry and C hemistry - challengeOrdered By: Karen Lora on 05-16-2023 CO2 [Moles/Vol] 31.0 mmol/L 21.0-32.0 [facility] Natriuretic peptide B (Bld) [Mass/Vol] 90.8 pg/mL 0-100 [facility] Urea nitrogen/Creatinine [Mass ratio] 9.9 mg/mg 10-20 [facility] No Panel InformationOrdered By: Karen Lora on 05-16-2023 D-Dimer Quantitative (PE/DVT) 0.41 FEU/ug/m 0.27-0.49 [facility] Comment on above: NORMAL D-Dimer level (<0.50) indicates no DVT or PE. Estimated GFR (MDRD) Amer 95 mL/min >60 [facility] Comment on above: GFR Calc Estimated GFR (MDRD) Non-Af Amer 79 mL/min >60 [facility] Comment on above: Non- GFR Calc Serum or plasma calcium leona urement (mass/volume)Ordered By: Karen Lora on 05-16-2023 Calcium [Mass/Vol] 9.0 mg/dL 8.5-10.1 [facility] Serum or plasma creatinine m easurement (mass/volume)Ordered By: Karen Lora on 05-16-2023 Creatinine [Mass/Vol] 1.01 mg/dL 0.70-1.30 [facility] Comment on above: The validity of the calculated GFR & GFRAA in patients over 70 years has not been determined. Clinical correlation is essential. Serum or plasma urea nitroge n measurement (mass/volume)Ordered By: Karen Lora on 05-16-2023 Urea nitrogen [Mass/Vol] 10 mg/dL 09-04 [facility] Thin prep Papanicolaou smear with manual screeningOrdered By: Karen Lora on 05-16-2023 Thin prep Papanicolaou smear with manual screening 07-02 [facility] Basophil percentageOrdered B y: II Cinthia Trammell on 05-06-2023 Basophil percentage 0.72 ng/mL 0.0-4.0 [facility] Comment on above: This test was perfor med using the TPSA assay method [facility]. Values obtained with differentassay methods cannot be used interchangably.When changing PSA assays in the course of monitoring apatient, additional sequential testing should be carriedout to confirm baseline values. Basophil percentageon 2023 Cholesterol [Mass/Vol] 99 mg/dL <200 [facility] Comment on above: <200 mg/dL Desirable 200-240 mg/dL Borderline >240 mg/dL High Risk Triglyceride [Mass/Vol] 90 mg/dL <199 [facility] Comment on above: The drugs N-Acetylcy steine and Metamizole may falsely depress this assay.Serum Triglycerides Reference Interval Normal <150 mg/dL Borderline high 150 - 199 mg/dL High 200 - 499 mg/dL Very High > or = 500 mg/dL Laboratory - Chemistry and C hemistry - challengeon 03-28-2023 Cholesterol in HDL [Mass/Vol] 50 mg/dL >40 [facility] Comment on above: The drugs N-Acetylcy steine and Metamizole may falsely depress this assay. Reference Range HDL <40 mg/dL Low HDL Cholesterol HDL >or= 60 mg/dL High HDL Cholesterol Cholesterol in LDL [Mass/Vol] 31 mg/dL 0-130 [facility] No Panel Informationon 03-28 VLDL Cholesterol 18 mg/dL 5-40 [facility] ECG 12-LEADon 03-26-2023 ECG 12-LEAD Ventricular Rate 63 Atrial Rate 63 P-R Interval 156 QRS Duration 84 Q-T Interval 402 QTC Calculation(Bazett) 411 P [place] 12 R [place] -4 T [place] 18 QRS Count 11 Q Onset 215 P Onset 137 P Offset 201 T Offset 416 QTC Fredericia 408 Diagnosis Normal sinus rhythm Possible?? Inferior infarct , age undetermined Possible Anterior infarct , age undetermined Abnormal ECG When compared with ECG of 08-DEC-2021 22:53, Previous ECG has undetermined rhythm, needs review Borderline criteria for Anterior infarct are now Present QT has shortened Confirmed by Nevin Rogers ([id number]) on 03/28/2023 4:07:48 PM Normal [facility] Absolute lymphocyte countOrd ered By: Delfin Russell on 03-19-2023 Lymphocytes Auto (Unsp spec) [#/Vol] 1.39 10*3/uL 0.83-4.51 [facility] Automated lymphocyte count a s percentage of total leukocytesOrdered By: Delfin Russell on 03-19-2023 Lymphocytes/100 WBC Auto (Unsp spec) 22.9 % 19-41 [facility] Basophil percentageOrdered B y: Delfin Russell on 03-19-2023 Basophils/100 WBC (Bld) 0.3 % 0-1 [facility] Chloride [Moles/Vol] 107 mmol/L 98-107 [facility] Eosinophils/100 WBC (Bld) 2.0 % 0-5 [facility] Glucose [Mass/Vol] 91 mg/dL 74-106 [facility] Hemoglobin (Bld) [Mass/Vol] 14.6 g/dL 13.0-16.5 [facility] Monocytes/100 WBC (Bld) 7.6 % 0-10 [facility] Neutrophils (Bld) [#/Vol] 4.1 10*3/uL 2.0-7.7 [facility] Neutrophils/100 WBC (Bld) 67.0 % 47-70 [facility] Potassium [Moles/Vol] 3.6 mmol/L 3.5-5.1 [facility] Sodium [Moles/Vol] 140 mmol/L 136-145 [facility] WBC (Bld) [#/Vol] 6.1 10*3/uL 4.4-11.0 [facility] Determination of erythrocyte mean corpuscular volume (MCV)Ordered By: Delfin Russell on 03-19-2023 MCV (RBC) [Entitic vol] 96.4 fL 80-94 [facility] Erythrocyte distribution wid th ratioOrdered By: Delfin Russell on 03-19-2023 Erythrocyte distribution width (RBC) [Ratio] 13.5 % 11.6-14.6 [facility] Erythrocyte distribution wid th standard deviationOrdered By: Delfin Russell on 03-19-2023 Erythrocyte distribution width (RBC) [Entitic vol] 47.8 fL 35.1-43.9 [facility] Hematocrit Auto (Bld) [Volum e fraction]Ordered By: Delfin Russell on 03-19-2023 Hematocrit (Bld) [Volume fraction] 45.9 % 40-54 [facility] Immature granulocytes/100 WB C Auto (Bld)Ordered By: Delfin Russell on 03-19-2023 Immature granulocytes/100 WBC (Bld) 0.200 % 0.0-0.9 [facility] Comment on above: IG% - Immature Granu locytes (promyelocytes, myelocytes and metamyelocytes) > 1% indicates that a LEFT SHIFT is Present. Laboratory - Chemistry and C hemistry - challengeOrdered By: Delfin Russell on 03-19-2023 CO2 [Moles/Vol] 29.0 mmol/L 21.0-32.0 [facility] Urea nitrogen/Creatinine [Mass ratio] 6.9 mg/mg 10-20 [facility] Laboratory - Hematology and Cell countsOrdered By: Delfin Russell on 03-19-2023 MCH (RBC) [Entitic mass] 30.7 pg 27.0-32.0 [facility] MCHC (RBC) [Mass/Vol] 31.8 g/dL 32-36 [facility] Nucleated RBC/100 WBC (Bld) [Ratio] 0 % 0-5 [facility] Platelets (Bld) [#/Vol] 146 10*3/uL 150-450 [facility] No Panel InformationOrdered By: Delfin Russell on 03-19-2023 Estimated Creatinine Clearance Calc 85.51 ml/min [facility] Estimated GFR (MDRD) Amer 95 mL/min >60 [facility] Comment on above: GFR Calc Estimated GFR (MDRD) Non-Af Amer 79 mL/min >60 [facility] Comment on above: Non- GFR Calc Platelet mean volume Jose Daniel-Ec ker (Bld) [Entitic vol]Ordered By: Delfin Russell on 03-19-2023 Platelet mean volume (Bld) [Entitic vol] 12.1 fL 6.2-12.0 [facility] RBC Auto (Bld) [#/Vol]Ordere d By: Delfin Russell on 03-19-2023 RBC (Bld) [#/Vol] 4.76 10*6/uL 4.6-6.2 [facility] Serum or plasma calcium leona urement (mass/volume)Ordered By: Delfin Russell on 03-19-2023 Calcium [Mass/Vol] 9.2 mg/dL 8.5-10.1 [facility] Serum or plasma creatinine m easurement (mass/volume)Ordered By: Delfin Russell on 03-19-2023 Creatinine [Mass/Vol] 1.01 mg/dL 0.70-1.30 [facility] Comment on above: The validity of the calculated GFR & GFRAA in patients over 70 years has not been determined. Clinical correlation is essential. Serum or plasma urea nitroge n measurement (mass/volume)Ordered By: Delfin Russell on 03-19-2023 Urea nitrogen [Mass/Vol] 7 mg/dL 7-18 [facility] Thin prep Papanicolaou smear with manual screeningOrdered By: Delfin Russell on 03-19-2023 Thin prep Papanicolaou smear with manual screening 4 5-15 [facility] Serum or plasma thyroid stim ulating hormone (TSH) measurement (units/volume)Ordered By: Porfirio Miller on 03-18-2023 TSH Qn 0.35 uIU/mL 0.358-3.74 [facility] Laboratory - Microbiology an d Antimicrobial susceptibilityOrdered By: Moses Grady on 03-17-2023 G. lamblia Ag IA.rapid Ql (Stl) [facility] G. lamblia Ag IA.rapid Ql (Stl) [facility] Ova and parasitesOrdered By: Moses Grady on 03-17-2023 Ova and parasites identified LM Nom (Unsp spec) [facility] Ova and parasites identified LM Nom (Unsp spec) [facility] Stool enteric pathogen panel by probe and target amplification methodOrdered By: Moses Grady on 03-17-2023 Gastrointestinal pathogens panel YOLY+probe (Stl) [facility] Stool gastrointestinal hemog lobin detection by immunologic methodOrdered By: Delfin Russell on 03-17-2023 Lower GI hemoglobin IA Ql (Stl) [facility] Lower GI hemoglobin IA Ql (Stl) [facility] Stool lactoferrin detection by immunoassayOrdered By: Delfin Russell on 03-17-2023 Lactoferrin IA Ql (Stl) [facility] Lactoferrin IA Ql (Stl) [facility] Absolute lymphocyte countOrd ered By: Moses Grady on 03-16-2023 Lymphocytes Auto (Unsp spec) [#/Vol] 1.46 10*3/uL 0.83-4.51 [facility] Automated lymphocyte count a s percentage of total leukocytesOrdered By: Moses Grady on 03-16-2023 Lymphocytes/100 WBC Auto (Unsp spec) 22.0 % 19-41 [facility] Basophil percentageOrdered B y: Moses Grady on 03-16-2023 Basophil percentage 0 SEEN /hpf 0-5 [facility] Lactate [Moles/Vol] 1.1 mmol/L 0.4-2.0 [facility] Basophil percentage 2.5 mg/dL 2.5-4.9 [facility] Basophils/100 WBC (Bld) 0.3 % 0-1 [facility] Bilirubin [Mass/Vol] 0.80 mg/dL 0.20-1.00 [facility] Comment on above: For patients on eltr ombopag therapy, use of Dimension [place] TBIL is not recommended. Chloride [Moles/Vol] 101 mmol/L 98-107 [facility] Eosinophils/100 WBC (Bld) 0.6 % 0-5 [facility] Glucose [Mass/Vol] 140 mg/dL 74-106 [facility] Comment on above: Fasting Glucose resu lt greater than or equal to 126 mg/dL suggests DIABETES MELLITUS per A.D.A. criteria. Hemoglobin (Bld) [Mass/Vol] 14.6 g/dL 13.0-16.5 [facility] Monocytes/100 WBC (Bld) 6.2 % 0-10 [facility] Neutrophils (Bld) [#/Vol] 4.7 10*3/uL 2.0-7.7 [facility] Neutrophils/100 WBC (Bld) 70.6 % 47-70 [facility] Potassium [Moles/Vol] 3.4 mmol/L 3.5-5.1 [facility] Protein [Mass/Vol] 7.1 g/dL 6.4-8.2 [facility] Sodium [Moles/Vol] 136 mmol/L 136-145 [facility] WBC (Bld) [#/Vol] 6.6 10*3/uL 4.4-11.0 [facility] Bilirubin Test strip Ql (U)O rdered By: Moses Grady on 03-16-2023 Bilirubin Ql (U) Negative Negative [facility] Culture, urineOrdered By: Guerda Russell on 03-16-2023 Bacteria identified Cx Nom (U) Culture exhibits no growth. [facility] Bacteria identified Cx Nom (U) Culture exhibits no growth. [facility] Determination of erythrocyte mean corpuscular volume (MCV)Ordered By: Moses Grady on 03-16-2023 MCV (RBC) [Entitic vol] 92.2 fL 80-94 [facility] Direct bilirubinOrdered By: Moses Grady on 03-16-2023 Bilirubin.direct [Mass/Vol] 0.29 mg/dL 0.00-0.30 [facility] Erythrocyte distribution wid th ratioOrdered By: Moses Grady on 03-16-2023 Erythrocyte distribution width (RBC) [Ratio] 13.2 % 11.6-14.6 [facility] Erythrocyte distribution wid th standard deviationOrdered By: Moses Grady on 03-16-2023 Erythrocyte distribution width (RBC) [Entitic vol] 44.6 fL 35.1-43.9 [facility] Hematocrit Auto (Bld) [Volum e fraction]Ordered By: Moses Grady on 03-16-2023 Hematocrit (Bld) [Volume fraction] 43.9 % 40-54 [facility] Immature granulocytes/100 WB C Auto (Bld)Ordered By: Moses Grady on 03-16-2023 Immature granulocytes/100 WBC (Bld) 0.300 % 0.0-0.9 [facility] Comment on above: IG% - Immature Granu locytes (promyelocytes, myelocytes and metamyelocytes) > 1% indicates that a LEFT SHIFT is Present. Ketones Test strip Ql (U)Ord ered By: Moses Grady on 03-16-2023 Ketones Ql (U) 5 mg/dl Negative [facility] Laboratory - Chemistry and C hemistry - challengeOrdered By: Moses Grady on 03-16-2023 ALP [Catalytic activity/Vol] 77 U/L 45-117 [facility] ALT [Catalytic activity/Vol] 8 U/L 16-61 [facility] CO2 [Moles/Vol] 32.0 mmol/L 21.0-32.0 [facility] Globulin (S) [Mass/Vol] 3.5 g/dL 2.2-4.2 [facility] Lipase [Catalytic activity/Vol] 15 U/L 13-75 [facility] Comment on above: Please note:LIPASE r evised reference range effective 22. New Lipase methodology. Expected to produce lower values than the previous assay method. NEW Reference Range: 13 - 75 U/L Magnesium [Mass/Vol] 2.3 mg/dL 1.6-2.6 [facility] Natriuretic peptide B (Bld) [Mass/Vol] 81.7 pg/mL 0-100 [facility] Urea nitrogen/Creatinine [Mass ratio] 10.2 mg/mg 10-20 [facility] Laboratory - Hematology and Cell countsOrdered By: Moses Grady on 03-16-2023 MCH (RBC) [Entitic mass] 30.7 pg 27.0-32.0 [facility] MCHC (RBC) [Mass/Vol] 33.3 g/dL 32-36 [facility] Nucleated RBC/100 WBC (Bld) [Ratio] 0 % 0-5 [facility] Platelets (Bld) [#/Vol] 158 10*3/uL 150-450 [facility] Laboratory - Microbiology an d Antimicrobial susceptibilityOrdered By: Moses Grady on 03-16-2023 Bacteria identified Cx Nom (Bld) No growth in 5 days. [facility] Bacteria identified Cx Nom (Bld) No growth in 5 days. [facility] Mucus LM Ql (Urine sed)Order ed By: Moses Grady on 03-16-2023 Mucus Ql (Urine sed) 1+ /hpf [facility] Nitrite Test strip Ql (U)Ord ered By: Moses Grady on 03-16-2023 Nitrite Ql (U) Negative Negative [facility] No Panel InformationOrdered By: Moses Grady on 03-16-2023 Urine RBC 0 SEEN /hpf 0-5 [facility] Estimated Creatinine Clearance Calc 62.93 ml/min [facility] Estimated GFR (MDRD) Amer 67 mL/min >60 [facility] Comment on above: GFR Calc Estimated GFR (MDRD) Non-Af Amer 56 mL/min >60 [facility] Comment on above: Non- GFR Calc Troponin I High Sensitivity 39 pg/mL 3.0-78.0 [facility] Comment on above: Please Note: New Dayan t Units and Gender Specific Reference Ranges. For more information see Policy Stat Procedure [place] High Sensitivity Troponin (TNIH) and attachments. No Panel InformationOrdered By: Delfin Russell on 03-16-2023 Stool Calprotectin 290 ug/g 0-120 [facility] Comment on above: Concentration Interp retation Follow-Up< 5 - 50 ug/g Normal None>50 -120 ug/g Borderline Re-evaluate in 4-6 weeks >120 ug/g Abnormal Repeat as clinically indicatedPerformed at: - [facility] [address] [id number] Director: Alma Rosa Laura MD, Phone: [phone] Platelet mean volume Jose Daniel-Ec ker (Bld) [Entitic vol]Ordered By: Moses Grady on 03-16-2023 Platelet mean volume (Bld) [Entitic vol] 11.5 fL 6.2-12.0 [facility] Protein Test strip Ql (U)Ord ered By: Moses Grady on 03-16-2023 Protein Ql (U) 15 mg/dl Negative [facility] RBC Auto (Bld) [#/Vol]Ordere d By: Moses Grady on 03-16-2023 RBC (Bld) [#/Vol] 4.76 10*6/uL 4.6-6.2 [facility] Serum or plasma calcium leona urement (mass/volume)Ordered By: Moses Grady on 03-16-2023 Calcium [Mass/Vol] 9.2 mg/dL 8.5-10.1 [facility] Serum or plasma creatinine m easurement (mass/volume)Ordered By: Moses Grady on 03-16-2023 Creatinine [Mass/Vol] 1.37 mg/dL 0.70-1.30 [facility] Comment on above: The validity of the calculated GFR & GFRAA in patients over 70 years has not been determined. Clinical correlation is essential. Serum or plasma urea nitroge n measurement (mass/volume)Ordered By: Moses Grady on 03-16-2023 Urea nitrogen [Mass/Vol] 14 mg/dL 7-18 [facility] Squamous epithelial cells de tection in urine sediment by light microscopyOrdered By: Moses rGady on 03-16-2023 Epithelial cells.squamous LM Ql (Urine sed) 0-5 SEEN /hpf 0-5 [facility] Thin prep Papanicolaou smear with manual screeningOrdered By: Moses Grady on 03-16-2023 Thin prep Papanicolaou smear with manual screening 3.6 g/dL 3.2-5.0 [facility] Thin prep Papanicolaou smear with manual screening 13 U/L 15-37 [facility] Thin prep Papanicolaou smear with manual screening 3 5-15 [facility] Urine blood detectionOrdered By: Moses Grady on 03-16-2023 RBC Ql (U) 10 /ul Negative [facility] Urine clarityOrdered By: Zoltan Grady on 03-16-2023 Clarity (U) Clear Clear [facility] Urine color determinationOrd ered By: Moses Grady on 03-16-2023 Color (U) Yellow Yellow [facility] Urine glucose detectionOrder ed By: Moses Grady on 03-16-2023 Glucose Ql (U) Normal mg/dl Normal [facility] Urine leukocyte esterase det ection by dipstickOrdered By: Moses Grady on 03-16-2023 Leukocyte esterase Test strip Ql (U) 25 /ul Negative [facility] Urine pHOrdered By: Moses ying on 03-16-2023 pH (U) 6.0 [pH] 5.0 - 8.0 [facility] Urine sediment bacteria coun t by microscopy (number/high power field)Ordered By: Moses Grady on 03-16-2023 Bacteria LM.HPF (Urine sed) [#/Area] 0 /[HPF] None Seen [facility] Urine specific gravity measu rementOrdered By: Moses Grady on 03-16-2023 Specific gravity (U) [Rel density] 1.015 1.002-1.030 [facility] Urine urobilinogen measureme ntOrdered By: Moses Grady on 03-16-2023 Urobilinogen Ql (U) Normal mg/dl Normal [facility] Absolute lymphocyte countOrd ered By: Karen Lora on 12-14-2022 Lymphocytes Auto (Unsp spec) [#/Vol] 1.21 10*3/uL 0.83-4.51 [facility] Alternaria alternata IgE ser umOrdered By: Karen Lora on 12-14-2022 A. alternata IgE Qn (S) <0.10 kU/L Class 0 [facility] Atypical perinuclear antineu trophil cytoplasmic antibodies measurementOrdered By: Karen Lora on 12-14-2022 Neutrophil cytoplasmic Ab.perinuclear.atypical IF (S) [Titer] <1:20 titer Neg:<1:20 [facility] Comment on above: The atypical pANCA p attern has been observed in asignificant percentage of patients with ulcerative colitis,primary sclerosing cholangitis and autoimmune hepatitis. Basophil percentageOrdered B y: Karen Lora on 12-14-2022 Basophils/100 WBC (Bld) 0.3 % 0-1 [facility] Eosinophils/100 WBC (Bld) 1.7 % 0-5 [facility] Neutrophils (Bld) [#/Vol] 4.2 10*3/uL 2.0-7.7 [facility] Neutrophils/100 WBC (Bld) 69.9 % 47-70 [facility] WBC (Bld) [#/Vol] 6.1 10*3/uL 4.4-11.0 [facility] Blood erythrocytes count (nu mber/volume)Ordered By: Karen Lora on 12-14-2022 RBC (Bld) [#/Vol] 4.73 10*6/uL 4.6-6.2 [facility] Blood hemoglobin measurement (mass/volume)Ordered By: Karen Lora on 12-14-2022 Hemoglobin (Bld) [Mass/Vol] 14.4 g/dL 13.0-16.5 [facility] Blood lymphocytes/100 leukoc ytesOrdered By: Karen Lora on 12-14-2022 Lymphocytes/100 WBC (Bld) 20.0 % 19-41 [facility] Blood monocytes/100 leukocyt esOrdered By: Karen Lora on 12-14-2022 Monocytes/100 WBC (Bld) 7.8 % 0-10 [facility] Blood platelet mean volumeOr dered By: Karen Lora on 12-14-2022 Platelet mean volume (Bld) [Entitic vol] 11.0 fL 6.2-12.0 [facility] Determination of erythrocyte mean corpuscular volume (MCV)Ordered By: Karen Lora on 12-14-2022 MCV (RBC) [Entitic vol] 94.7 fL 80-94 [facility] Hematocrit Auto (Bld) [Volum e fraction]Ordered By: Karen Lora on 12-14-2022 Hematocrit (Bld) [Volume fraction] 44.8 % 40-54 [facility] Laboratory - Hematology and Cell countsOrdered By: Karen Lora on 12-14-2022 Erythrocyte distribution width (RBC) [Entitic vol] 47.6 fL 35.1-43.9 [facility] Erythrocyte distribution width (RBC) [Ratio] 13.7 % 11.6-14.6 [facility] Immature granulocytes/100 WBC (Bld) 0.300 % 0.0-0.9 [facility] Comment on above: IG% - Immature Granu locytes (promyelocytes, myelocytes and metamyelocytes) > 1% indicates that a LEFT SHIFT is Present. MCH (RBC) [Entitic mass] 30.4 pg 27.0-32.0 [facility] Nucleated RBC/100 WBC (Bld) [Ratio] 0 % 0-5 [facility] Laboratory - Miscellaneous t estsOrdered By: Karen Lora on 12-14-2022 Service comment (Unsp spec) [Interp] Comment . [facility] Comment on above: Levels of Specific I gE Class Description of Class ----- < 0.10 0 Negative 0.10 - 0.31 0/I Equivocal/Low 0.32 - 0.55 I Low 0.56 - 1.40 II Moderate 1.41 - 3.90 III High 3.91 - 19.00 IV Very High 19.01 - 100.00 V Very High >100.00 Very High MCHC Auto (RBC) [Mass/Vol]Or dered By: Karen Lora on 12-14-2022 MCHC (RBC) [Mass/Vol] 32.1 g/dL 32-36 [facility] No Panel InformationOrdered By: Karen Lora on 12-14-2022 Common Ragweed (Short) Allergen <0.10 kU/L Class 0 [facility] Telugu Plantain Allergen (RAST) <0.10 kU/L [facility] 0 [facility] Immunoglobulin E 176 IU/mL 6-495 [facility] Comment on above: Performed at: - L [address] [id number] Director: Noe Mejias PhD, Phone: [phone] at: [facility] [id number] Director: Alma Rosa Laura MD, Phone: [phone] Mouse Urine Allergen IgE Antibody <0.10 kU/L [facility] 0 [facility] Comment on above: Performed at: - L [facility] [id number] [place], [place] [id number] Director: Alma Rosa Laura MD, Phone: [phone] Platelets bldOrdered By: Addison Lora on 12-14-2022 Platelets (Bld) [#/Vol] 164 10*3/uL 150-450 [facility] Serum Aspergillus flavus ant ibody detection by immunodiffusionOrdered By: Karen Lora on 12-14-2022 A. flavus Ab Immune diff Ql (S) Negative Neg:<1:1 [facility] Serum Aspergillus fumigatus antibody detection by immunodiffusionOrdered By: Karen Lora on 12-14-2022 A. fumigatus Ab Immune diff Ql (S) Negative Neg:<1:1 [facility] Serum Aspergillus niger anti body detection by immunodiffusionOrdered By: Karen Lora on 12-14-2022 A. niger Ab Immune diff Ql (S) Negative Neg:<1:1 [facility] Serum Bermuda grass IgE anti body assay (units/volume)Ordered By: Karen Lora on 12-14-2022 Bermuda grass IgE Qn (S) <0.10 kU/L Class 0 [facility] Serum Dermatophagoides farin ae specific IgE antibody assay (units/volume)Ordered By: Karen Lora on 12-14-2022 Filipino house dust mite IgE Qn (S) <0.10 kU/L Class 0 [facility] Serum house dust mi te IgE antibody assay (units/volume)Ordered By: Karen Lora on 12-14-2022 house dust mite IgE Qn (S) <0.10 kU/L Class 0 [facility] Serum [place] blue grass Ig E antibody assay (units/volume)Ordered By: Karen Lora on 12-14-2022 [place] blue grass IgE Qn (S) <0.10 kU/L Class 0 [facility] Serum cat dander IgE antibod y assay (units/volume)Ordered By: Karen Lora on 12-14-2022 Cat dander IgE Qn (S) <0.10 kU/L Class 0 [facility] Serum classic neutrophil cyt oplasmic antibody assay (units/volume)Ordered By: Karen Lora on 12-14-2022 Neutrophil cytoplasmic Ab.classic Qn (S) <1:20 titer Neg:<1:20 [facility] Serum dog epithelium IgE ant ibody assay (units/volume)Ordered By: Karen Lora on 12-14-2022 Dog epithelium IgE Qn (S) <0.10 kU/L Class 0 [facility] Serum perinuclear neutrophil cytoplasmic antibody titer by immunofluorescenceOrdered By: Karen Lora on 12-14-2022 Neutrophil cytoplasmic Ab.perinuclear IF (S) [Titer] <1:20 titer Neg:<1:20 [facility] Comment on above: The presence of posi tive fluorescence exhibiting P-ANCA orC-ANCA patterns alone is not specific for the diagnosis ofWegener's Granulomatosis (WG) or microscopic polyangiitis.Decisions about treatment should not be based solely onANCA IFA results. The International ANCA Group Consensusrecommends follow up testing of positive sera with both ND-3 and MPO-ANCA enzyme immunoassays. As many as 5% serumsamples are positive only by EIA. Ref. AM J Clin [id number];111:507-513. Serum white elm IgE antibody assay (units/volume)Ordered By: Karen Lora on 12-14-2022 White Elm IgE Qn (S) <0.10 kU/L Class 0 [facility] Serum white oak IgE antibody assay (units/volume)Ordered By: Karen Lora on 12-14-2022 [place] IgE Qn (S) <0.10 kU/L Class 0 [facility] Basophil percentageOrdered B y: Christian Hernandez on 10-09-2022 Creatinine [Mass/Vol] 1.7 mg/dL 0.70-1.30 [facility] Laboratory - Chemistry and C hemistry - challengeOrdered By: Christian Hernandez on 10-09-2022 GFR/1.73 sq M.predicted among non-blacks MDRD (S/P/Bld) [Vol rate/Area] 44.0000 mL/min/{1.73_m2} >60 [facility] Blood Pressure Cuff Sizeon 0 09-25-2022 Fall risk assessment a) No falls within the last year [facility] [address] [place] Work Phone: Tobacco use status CPHS b) No M P-[facility] [address] [place] Work Phone: Blood Pressure Cuff Size Adult [facility]-L[facility] agrawal-[place] [address] [place] Work Phone: Office Visit (Cardiology)on 09-25-2022 Follow-up visit Diagnoses/Problems Assessed Agatston coronary artery calcium score between 200 and 399 (793.2) (R93.1) [06/05/2021] = 225.3 (LM 19.2, LAD 168, LCx 38.1, RCA 0) Bradycardia (427.89) (R00.1) CAD (coronary artery disease) (414.00) (I25.10) H/O right coronary artery stent placement (V45.82) (Z95.5) Hypertension (401.9) (I10) Tobacco abuse (305.1) (Z72.0) Hypercholesterolemia (272.0) (E78.00) Orders Breathing difficulty, CAD (coronary artery disease), Hypertension Renew: Isosorbide Mononitrate ER 60 MG Oral Tablet Extended Release 24 Hour; TAKE 1.5 TABLET ONCE DAILY CAD (coronary artery disease) Renew: Clopidogrel Bisulfate 75 MG Oral Tablet; take 1 tablet by mouth once daily Renew: Ezetimibe 10 MG Oral Tablet; TAKE 1 TABLET AT BEDTIME Renew: Furosemide 40 MG Oral Tablet; TAKE 1 TABLET EVERY DAY Renew: Metoprolol Succinate ER 25 MG Oral Tablet Extended Release 24 Hour; Take 1/2 tab daily Renew: Rosuvastatin Calcium 5 MG Oral Tablet; TAKE 1 TABLET DAILY CAD (coronary artery disease), SOB (shortness of breath) on exertion Renew: Spironolactone 25 MG Oral Tablet; TAKE 0.5 TABLET Daily Patient Instructions Follow-up in 6 months Continue current medication regiment as prescribed Advise a heart healthy plant-based diet and exercise Chief Complaint Follow-up appointment History of Present Illness09/25/2022: Office visit Patient is here for follow-up appointment. He is doing well since last appointment. Has some mild shortness of breath. He is being treated for parkinsonian's disorder and is on carbidopa levodopa. He denies lightheadedness dizziness or syncopal events. He is compliant with his meds. No major bleeding events. His vital signs initial blood pressure 115/73 heart rate of 67 his weight is 220 pounds. 03/27/2022 Patient is here for follow-up. He had a bout of flu and COVID in January 2022. Has been recovering. He still has some shortness of breath. She complains of increased lower extremity edema and abdominal fullness. No orthopnea or PND he has noticed. His vital signs initial blood pressure 103/67 heart rate of 64 satting 96% on room air. Active Problems Other Problems Acute coronary syndrome (411.1) (I24.9) Agatston coronary artery calcium score between 200 and 399 (793.2) (R93.1) [06/05/2021] = 225.3 (LM 19.2, LAD 168, LCx 38.1, RCA 0) Asthma (493.90) (J45.909) Benign prostatic hyperplasia with urinary obstruction and other lower urinary tract symptoms (600.21) (N40.1,N13.8) Bradycardia (427.89) (R00.1) Breathing difficulty (786.09) (R06.89) CAD (coronary artery disease) (414.00) (I25.10) Change in voice (784.49) (R49.9) Elevated brain natriuretic peptide (BNP) level (790.99) (R79.89) 11/01/2021 = 129 ... 09/11/2021 = 155 ... 06/03/2021 = 112 Elevated troponin (790.6) (R77.8) 06/04/2021 = 0.49 ? 06/03/2021 = 0.66 AND 0.60 Fungal infection (117.9) (B49) H/O right coronary artery stent placement (V45.82) (Z95.5) Hoarseness of voice (784.42) (R49.0) Hypercholesterolemia (272.0) (E78.00) Hypertension (401.9) (I10) Laryngeal spasm (478.75) (J38.5) Laryngopharyngeal reflux (LPR) (478.79) (K21.9) Nocturia (788.43) (R35.1) Observed sleep apnea (780.57) (G47.30) Postoperative hypothyroidism (244.0) (E89.0) Snoring (786.09) (R06.83) SOB (shortness of breath) on exertion (786.05) (R06.02) Tobacco abuse (305.1) (Z72.0) Tobacco abuse counseling (V65.42,305.1) (Z71.6) Urge incontinence of urine (788.31) (N39.41) Urinary frequency (788.41) (R35.0) Weak urinary stream (788.62) (R39.12) Surgical History Problems History of Cardiac catheterization [06/06/2021, Dr. Brenna Pro]: Severe 1-vessel obstructive CAD in right-dominant circulation. Culprit mid RCA 95% thrombotic stenosis. Moderate non-hemodynamically significant proximal LAD 40-50% stenosis (RFR 0.94). Elevated left-sided filling pressure (LVEDP 25 mmHg end-expiration). No gradient on pull-back to suggest aortic stenosis. RFR of proximal LAD lesion 0.94 (<0.90 benefit from revascularization). History of Cardiac catheterization with stent placement [06/06/2021, Dr. Brenna Pro]: RCA stented with a 3.5 x 26 mm Resolute Holden stent History of Knee arthroscopy History of Knee surgery History of Thyroidectomy Past Medical History Problems History of Abnormal CT of the chest (793.2) (R93.89) [06/05/2021]: Near complete occlusion of RCA in mid portion caused by noncalcified plaque. Reconstitution of flow distal to the stenosis. Nonobstructive coronary artery disease involving the LAD and LCx causing less than 50% stenosis. Total calcium score = 225. History of Acute deep vein thrombosis (DVT) of lower extremity, unspecified laterality, unspecified vein (453.40) (I82.409) History of nuclear stress test (V15.89) (Z92.89) Pharmacologic Nuclear Stress Test [10/26/2021]: Normal stress myocardial perfusion imaging in response to pharmacologic stress. Well-maintained left ventricular function, (more content not included)... Normal [facility] Basophil percentageOrdered B y: Dr. Hernandez on 06-19-2022 Bilirubin [Mass/Vol] 0.50 mg/dL 0.20-1.00 [facility] Comment on above: For patients on eltr ombopag therapy, use of Dimension [place] TBIL is not recommended. Chloride [Moles/Vol] 107 mmol/L 98-107 [facility] Glucose [Mass/Vol] 119 mg/dL 74-106 [facility] Comment on above: Fasting Glucose resu lt from 100 to 125 mg/dL suggests IMPAIRED HOMEOSTASIS per A.D.A. criteria. Potassium [Moles/Vol] 4.1 mmol/L 3.5-5.1 [facility] Protein [Mass/Vol] 7.7 g/dL 6.4-8.2 [facility] Sodium [Moles/Vol] 140 mmol/L 136-145 [facility] WBC (Bld) [#/Vol] 8.1 10*3/uL 4.4-11.0 [facility] Blood erythrocytes count (nu mber/volume)Ordered By: Dr. Hernandez on 06-19-2022 RBC (Bld) [#/Vol] 4.88 10*6/uL 4.6-6.2 [facility] Blood hemoglobin measurement (mass/volume)Ordered By: Dr. Hernandez on 06-19-2022 Hemoglobin (Bld) [Mass/Vol] 14.9 g/dL 13.0-16.5 [facility] Blood platelet mean volumeOr dered By: Dr. Hernandez on 06-19-2022 Platelet mean volume (Bld) [Entitic vol] 11.7 fL 6.2-12.0 [facility] Determination of erythrocyte mean corpuscular volume (MCV)Ordered By: Dr. Hernandez on 06-19-2022 MCV (RBC) [Entitic vol] 94.9 fL 80-94 [facility] Hematocrit Auto (Bld) [Volum e fraction]Ordered By: Dr. Hernandez on 06-19-2022 Hematocrit (Bld) [Volume fraction] 46.3 % 40-54 [facility] Laboratory - Chemistry and C hemistry - challengeOrdered By: Dr. Hernandez on 06-19-2022 ALP [Catalytic activity/Vol] 97 U/L 45-117 [facility] ALT [Catalytic activity/Vol] 27 U/L 16-61 [facility] CO2 [Moles/Vol] 31.0 mmol/L 21.0-32.0 [facility] Free T4 [Mass/Vol] 1.23 ng/dL 0.76-1.46 [facility] Globulin (S) [Mass/Vol] 3.9 g/dL 2.2-4.2 [facility] Magnesium [Mass/Vol] 2.5 mg/dL 1.6-2.6 [facility] Urea nitrogen/Creatinine [Mass ratio] 16.3 mg/mg 10-20 [facility] Laboratory - Hematology and Cell countsOrdered By: Dr. Hernandez on 06-19-2022 Erythrocyte distribution width (RBC) [Entitic vol] 45.1 fL 35.1-43.9 [facility] Erythrocyte distribution width (RBC) [Ratio] 13.0 % 11.6-14.6 [facility] MCH (RBC) [Entitic mass] 30.5 pg 27.0-32.0 [facility] MCHC Auto (RBC) [Mass/Vol]Or dered By: Dr. Hernandez on 06-19-2022 MCHC (RBC) [Mass/Vol] 32.2 g/dL 32-36 [facility] No Panel InformationOrdered By: Dr. Hernandez on 06-19-2022 Estimated GFR (MDRD) Amer 72 mL/min >60 [facility] Comment on above: GFR Calc Estimated GFR (MDRD) Non-Af Amer 60 mL/min >60 [facility] Comment on above: Non- GFR Calc Free Triiodothyronine (T3) pg/dL 2.8 pg/mL 2.18-3.98 [facility] Thyroid Stimulating Hormone (TSH) 0.69 uIU/mL 0.358-3.74 [facility] Whole Blood Vitamin B1 Level 186.2 nmol/L 66.5-200.0 [facility] Comment on above: Performed at: [address] [id number] Director: Alma Rosa Laura MD, Phone: [phone] Platelets bldOrdered By: Dr. Hernandez on 06-19-2022 Platelets (Bld) [#/Vol] 185 10*3/uL 150-450 [facility] Serum or plasma albumin leona urement (mass/volume)Ordered By: Dr. Hernandez on 06-19-2022 Albumin [Mass/Vol] 3.8 g/dL 3.2-5.0 [facility] Serum or plasma albumin/glob ulin mass ratioOrdered By: Dr. Hernandez on 06-19-2022 Albumin/Globulin [Mass ratio] 1.0 {ratio} 0.9-2.4 [facility] Serum or plasma calcium leona urement (mass/volume)Ordered By: Dr. Hernandez on 06-19-2022 Calcium [Mass/Vol] 9.2 mg/dL 8.5-10.1 [facility] Serum or plasma creatinine m easurement (mass/volume)Ordered By: Dr. Hernandez on 06-19-2022 Creatinine [Mass/Vol] 1.29 mg/dL 0.70-1.30 [facility] Comment on above: The validity of the calculated GFR & GFRAA in patients over 70 years has not been determined. Clinical correlation is essential. Serum or plasma folate measu rement (mass/volume)Ordered By: Dr. Hernandez on 06-19-2022 Folate [Mass/Vol] 7.60 ng/mL 3.1-55.4 [facility] Serum or plasma urea nitroge n measurement (mass/volume)Ordered By: Dr. Hernandez on 06-19-2022 Urea nitrogen [Mass/Vol] 21 mg/dL 7-18 [facility] Thin prep Papanicolaou smear with manual screeningOrdered By: Dr. Hernandez on 06-19-2022 Thin prep Papanicolaou smear with manual screening 19 U/L 15-37 [facility] Thin prep Papanicolaou smear with manual screening 2 5-15 [facility] 24 hour urine alpha 2 globul in/total protein ratio by electrophoresis (mass fraction)Ordered By: Dr. Lobo on 05-02-2022 Alpha 2 globulin Elph (24H U) [Mass fraction] 11.1 % . [facility] 24 hour urine beta globulin/ total protein ratio by electrophoresis (mass fraction)Ordered By: Dr. Lobo on 05-02-2022 Beta globulin Elph (24H U) [Mass fraction] 34.1 % . [facility] 24 hour urine gamma globulin /total protein ratio by electrophoresis (mass fraction)Ordered By: Dr. Lobo on 05-02-2022 Gamma globulin Elph (24H U) [Mass fraction] 28.7 % . [facility] Basophil percentageOrdered B y: Dr. Lobo on 05-02-2022 Basophil percentage 3 ug/L 0-9 [facility] Comment on above: Detection Limit = 1 Basophil percentage Not Reportable [facility] Chloride [Moles/Vol] 102 mmol/L 98-107 [facility] Glucose [Mass/Vol] 88 mg/dL 74-106 [facility] Potassium [Moles/Vol] 4.3 mmol/L 3.5-5.1 [facility] Sodium [Moles/Vol] 139 mmol/L 136-145 [facility] Blood cadmium measurement (m ass/volume)Ordered By: Dr. Lobo on 05-02-2022 Cadmium (Bld) [Mass/Vol] 1.0 ug/L 0.0-1.2 [facility] Comment on above: Environmental Exposu re: Nonsmokers 0.3 - 1.2 Smokers 0.6 - 3.9 Occupational Exposure: OSHA Cadmium Std 5.0 MICK 5.0 Detection Limit = 0.5 Blood mercury measurement (m ass/volume)Ordered By: Dr. Lobo on 05-02-2022 Mercury (Bld) [Mass/Vol] < 1.0 ug/L 0.0-14.9 [facility] Comment on above: Environmental Exposu re: <15.0 Occupational Exposure: MICK - Inorganic Mercury: 15.0 Detection Limit = 1.0 Laboratory - Chemistry and C hemistry - challengeOrdered By: Dr. Lobo on 05-02-2022 CK [Catalytic activity/Vol] 131 U/L 39-308 [facility] CO2 [Moles/Vol] 30.0 mmol/L 21.0-32.0 [facility] Cobalamin (Vitamin B12) [Mass/Vol] 391 pg/mL 211-911 [facility] Urea nitrogen/Creatinine [Mass ratio] 14.1 mg/mg 10-20 [facility] No Panel InformationOrdered By: Dr. Lobo on 03-15-2023 Anti-Nuclear Antibody Screen Negative Negative [facility] Comment on above: Performed at: [facility] - [facility] [address] [id number] Director: Alma Rosa Laura MD, Phone: [phone] at: [address] [id number] Director: Noe Mejias PhD, Phone: [phone] [employer] B Antibody Not Reportable [facility] Estimated GFR (MDRD) Amer 68 mL/min >60 [facility] Comment on above: GFR Calc Estimated GFR (MDRD) Non-Af Amer 57 mL/min >60 [facility] Comment on above: Non- GFR Calc Lead 1.2 ug/dL 0.0-3.4 [facility] Comment on above: Testing performed by Inductively coupled plasma/MassSpectrometry. Environmental Exposure: WHO Recommendation <20.0 Occupational Exposure: OS Lead Std 40.0 MICK 30.0 Detection Limit = 1.0This test was developed and its performancecharacteristics determined by [employer]. It has not beencleared or approved by the Food and Drug Administration. Parathyroid Hormone (Intact) 59.8 pg/mL 18.4-80.1 [facility] TOOL MAKER Antibody Not Reportable [facility] Urine Immunofixation PEP Note Comment . [facility] Comment on above: Protein electrophore sis scan will follow via computer,mail, or online merchandising coordinator delivery.Performed at: [facility] [address] [id number] Director: Noe Mejias PhD, Phone: [phone] Serum DNA double strand anti body assay (units/volume)Ordered By: Dr. Lobo on 05-02-2022 DNA double strand Ab Qn (S) Not Reportable [facility] Serum Medina-1 antibody assay (u nits/volume)Ordered By: Dr. Lobo on 05-02-2022 Medina-1 extractable nuclear Ab Qn (S) Not Reportable [facility] Serum Scl-70 extractable nuc lear antibody assay (units/volume)Ordered By: Dr. Lobo on 05-02-2022 SCL-70 extractable nuclear Ab Qn (S) Not Reportable [facility] Serum Mojica extractable nucl ear antibody detectionOrdered By: Dr. Lobo on 05-02-2022 Yunior extractable nuclear Ab Ql (S) Not Reportable [facility] Serum or plasma calcium leona urement (mass/volume)Ordered By: Dr. Lobo on 05-02-2022 Calcium [Mass/Vol] 9.5 mg/dL 8.5-10.1 [facility] Serum or plasma creatinine m easurement (mass/volume)Ordered By: Dr. Lobo on 05-02-2022 Creatinine [Mass/Vol] 1.35 mg/dL 0.70-1.30 [facility] Comment on above: The validity of the calculated GFR & GFRAA in patients over 70 years has not been determined. Clinical correlation is essential. Serum or plasma urea nitroge n measurement (mass/volume)Ordered By: Dr. Lobo on 05-02-2022 Urea nitrogen [Mass/Vol] 19 mg/dL 7-18 [facility] Thin prep Papanicolaou smear with manual screeningOrdered By: Dr. Lobo on 05-02-2022 Thin prep Papanicolaou smear with manual screening 7 5-15 [facility] Urine albumin/total protein mass ratio by electrophoresisOrdered By: Dr. Lobo on 05-02-2022 Albumin Elph (U) [Mass fraction] 23.3 % . [facility] Urine alpha 1 globulin/total protein ratio by electrophoresis (mass fraction)Ordered By: Dr. Lobo on 05-02-2022 Alpha 1 globulin Elph (U) [Mass fraction] 2.8 % . [facility] Urine monoclonal protein/tot al protein mass ratio by electrophoresisOrdered By: Dr. Lobo on 05-02-2022 Protein.monoclonal Elph (U) [Mass fraction] See comment [facility] Comment on above: NOT OBSERVED Urine protein measurement (m ass/volume)Ordered By: Dr. Lobo on 05-02-2022 Protein (U) [Mass/Vol] 13.4 mg/dL Not Estab. [facility] Basophil percentageon 2022 Chloride [Moles/Vol] 107 mmol/L 98-107 [facility] Glucose [Mass/Vol] 110 mg/dL 74-106 [facility] Comment on above: Fasting Glucose resu lt from 100 to 125 mg/dL suggests IMPAIRED HOMEOSTASIS per A.D.A. criteria. Potassium [Moles/Vol] 4.4 mmol/L 3.5-5.1 [facility] Sodium [Moles/Vol] 142 mmol/L 136-145 [facility] Laboratory - Chemistry and C hemistry - challengeon 04-11-2022 CO2 [Moles/Vol] 29.0 mmol/L 21.0-32.0 [facility] Natriuretic peptide B (Bld) [Mass/Vol] 62.4 pg/mL 0-100 [facility] Urea nitrogen/Creatinine [Mass ratio] 16.6 mg/mg 10-20 [facility] No Panel Informationon 04-11 Estimated GFR (MDRD) Amer 60 mL/min >60 [facility] Comment on above: GFR Calc Estimated GFR (MDRD) Non-Af Amer 50 mL/min >60 [facility] Comment on above: Non- GFR Calc Serum or plasma calcium leona urement (mass/volume)on 04-11-2022 Calcium [Mass/Vol] 9.5 mg/dL 8.5-10.1 [facility] Serum or plasma creatinine m easurement (mass/volume)on 04-11-2022 Creatinine [Mass/Vol] 1.51 mg/dL 0.70-1.30 [facility] Comment on above: The validity of the calculated GFR & GFRAA in patients over 70 years has not been determined. Clinical correlation is essential. Serum or plasma urea nitroge n measurement (mass/volume)on 04-11-2022 Urea nitrogen [Mass/Vol] 25 mg/dL 7-18 [facility] Thin prep Papanicolaou smear with manual screeningon 04-11-2022 Thin prep Papanicolaou smear with manual screening 6 5-15 [facility] IO Ultrasound, measurement p ost-void resid urine and/or bl cap; no imagon 03-28-2022 IO Ultrasound, measurement post-void resid urine and/or bl cap; no imag 238 mL [facility] Work Phone: Office Visit (Urology)on Follow-up visit Diagnoses/Problems Assessed Benign prostatic hyperplasia with urinary obstruction and other lower urinary tract symptoms (600.21) (N40.1,N13.8) Nocturia (788.43) (R35.1) Urinary frequency (788.41) (R35.0) Patient Discussion/Summary All available PSA values reviewed, Options discussed. Questions answered. Diet changes for prostate health discussed and educational information given. Pros/Cons of prostate health supplements discussed. Treatment options for LUTS reviewed Discussed timed voiding. Discussed fluid and caffeine intake Flomax Rx given Treatment options for ED reviewed. Lifestyle change to help prevent UTIs discussed. Encouraged fluid intake. F/U 1 year with PSA Chief Complaint Yearly w/ PSA History of Present IllnessPatient is here for yearly f/u. Most recent PSA was 0.42 on 03/12. . Prior PSA waS 0.37 on 01/08. Chronic BPH sx are mild and stable. Some urgency and frequency. Denies dysuria. Denies hematuria. Nocturia x3-4. He is taking Flomax. He has failed Gemtesa and Myrbetriq in the past. ED is not an issue. He is taking Isosorbide. Review of Systems Constitutional: No fever, No chills. Eye: GLASSES Ear/Nose/Mouth/Throat: Negative. Respiratory: No shortness of breath, No cough. Cardiovascular: No chest pain, No peripheral edema. Gastrointestinal: No nausea, Genitourinary: Negative except as documented in history of present illness. Hematology/Lymphatics: Plavix Endocrine: Negative. Immunologic: Not immunocompromised. Musculoskeletal: Negative Integumentary: Negative. Neurologic: Alert and oriented X4. Psychiatric: Negative. *Active Problems Problems Acute coronary syndrome (411.1) (I24.9) Agatston coronary artery calcium score between 200 and 399 (793.2) (R93.1) [06/05/2021] = 225.3 (LM 19.2, LAD 168, LCx 38.1, RCA 0) Asthma (493.90) (J45.909) Benign prostatic hyperplasia with urinary obstruction and other lower urinary tract symptoms (600.21) (N40.1,N13.8) Bradycardia (427.89) (R00.1) Breathing difficulty (786.09) (R06.89) Change in voice (784.49) (R49.9) Elevated troponin (790.6) (R77.8) 06/04/2021 = 0.49 ? 06/03/2021 = 0.66 AND 0.60 Fungal infection (117.9) (B49) Hoarseness of voice (784.42) (R49.0) Laryngeal spasm (478.75) (J38.5) Laryngopharyngeal reflux (LPR) (478.79) (K21.9) Nocturia (788.43) (R35.1) Observed sleep apnea (780.57) (G47.30) Postoperative hypothyroidism (244.0) (E89.0) Snoring (786.09) (R06.83) Tobacco abuse (305.1) (Z72.0) Tobacco abuse counseling (V65.42,305.1) (Z71.6) Urge incontinence of urine (788.31) (N39.41) Urinary frequency (788.41) (R35.0) Weak urinary stream (788.62) (R39.12) Hypercholesterolemia (272.0) (E78.00) CAD (coronary artery disease) (414.00) (I25.10) H/O right coronary artery stent placement (V45.82) (Z95.5) Hypertension (401.9) (I10) Elevated brain natriuretic peptide (BNP) level (790.99) (R79.89) - 11/01/2021 = 129 ... 09/11/2021 = 155 ... 06/03/2021 = 112 SOB (shortness of breath) on exertion (786.05) (R06.02) Past Medical History Problems History of Abnormal CT of the chest (793.2) (R93.89) [06/05/2021]: Near complete occlusion of RCA in mid portion caused by noncalcified plaque. Reconstitution of flow distal to the stenosis. Nonobstructive coronary artery disease involving the LAD and LCx causing less than 50% stenosis. Total calcium score = 225. History of Acute deep vein thrombosis (DVT) of lower extremity, unspecified laterality, unspecified vein (453.40) (I82.409) History of nuclear stress test (V15.89) (Z92.89) Pharmacologic Nuclear Stress Test [10/26/2021]: Normal stress myocardial perfusion imaging in response to pharmacologic stress. Well-maintained left ventricular function, ejection fraction 65%. Surgical History Problems History of Cardiac catheterization [06/06/2021, Dr. Brenna Pro]: Severe 1-vessel obstructive CAD in right-dominant circulation. Culprit mid RCA 95% thrombotic stenosis. Moderate non-hemodynamically significant proximal LAD 40-50% stenosis (RFR 0.94). Elevated left-sided filling pressure (LVEDP 25 mmHg end-expiration). No gradient on pull-back to suggest aortic stenosis. RFR of proximal LAD lesion 0.94 (<0.90 benefit from revascularization). History of Cardiac catheterization with stent placement [06/06/2021, Dr. Brenna Pro]: RCA stented with a 3.5 x 26 mm Resolute Holden stent History of Knee arthroscopy History of Knee surgery History of Thyroidectomy Family History Father Family history of cardiac arrest (V17.49) (Z82.49) Family history of chronic obstructive pulmonary disease (V17.6) (Z82.5) Family history of emphysema (V17.6) (Z82.5) Social History Problems Consumes alcohol occasionally (V49.89) (Z78.9) Denied: History of Current every day smoker Daily caffeine consumption Former smoker (V15.82) (Z87.891) Allergies Medication Gemtesa TABS Recorded By: Germaine Felix; 03/01/2021 3:11:25 (more content not included)... Normal [employer] Tobacco Screening.on 023 Adult depression screening assessment No [facility] Work Phone: Fall risk assessment a) No falls within the last year [email or web address] Work Phone: Tobacco use status CPHS b) No M [facility] Work Phone: Blood Pressure Cuff Sizeon 0 03-27-2022 Fall risk assessment a) No falls within the last year [facility] [facility] [place] Work Phone: Tobacco use status CPHS b) No M [facility] [facility] [place] Work Phone: Blood Pressure Cuff Size Adult [facility] [facility] [place] Work Phone: Office Visit (Cardiology)on 03-27-2022 Follow-up visit Diagnoses/Problems Assessed CAD (coronary artery disease) (414.00) (I25.10) SOB (shortness of breath) on exertion (786.05) (R06.02) Hypertension (401.9) (I10) Elevated brain natriuretic peptide (BNP) level (790.99) (R79.89) 11/01/2021 = 129 ... 09/11/2021 = 155 ... 06/03/2021 = 112 H/O right coronary artery stent placement (V45.82) (Z95.5) Hypercholesterolemia (272.0) (E78.00) Orders Breathing difficulty, CAD (coronary artery disease), Hypertension Renew: Isosorbide Mononitrate ER 60 MG Oral Tablet Extended Release 24 Hour; TAKE 1.5 TABLET ONCE DAILY CAD (coronary artery disease) Renew: Furosemide 40 MG Oral Tablet; TAKE 1 TABLET EVERY DAY CAD (coronary artery disease), Elevated brain natriuretic peptide (BNP) level, H/O right coronary artery stent placement, Hypertension, SOB (shortness of breath) on exertion Brain Natriuretic Peptide BNP; Status:Active; Requested for:[id number]; CAD (coronary artery disease), Hypertension, SOB (shortness of breath) on exertion Basic Metabolic Panel; Status:Active; Requested for:[id number]; CAD (coronary artery disease), SOB (shortness of breath) on exertion Start: Spironolactone 25 MG Oral Tablet; TAKE 0.5 TABLET Daily Patient Instructions Increase isosorbide to 90 mg daily Add spironolactone 12.5 mg daily Check BMP/BNP in 2 weeks Follow-up in 6 months Continue a heart healthy diet and exercise Continue current medication regimen as prescribed Chief Complaint Follow-up appointment History of Present Illness 03/27/2022: Office visit Patient is here for follow-up. He had a bout of flu and COVID in January 2022. Has been recovering. He still has some shortness of breath. She complains of increased lower extremity edema and abdominal fullness. No orthopnea or PND he has noticed. His vital signs initial blood pressure 103/67 heart rate of 64 satting 96% on room air. 11/14/2021 This is a 61-year-old male past med history [...] room air. His weight is 223 pounds. Active Problems Other Problems Acute coronary syndrome (411.1) (I24.9) Agatston coronary artery calcium score between 200 and 399 (793.2) (R93.1) [06/05/2021] = 225.3 (LM 19.2, LAD 168, LCx 38.1, RCA 0) Asthma (493.90) (J45.909) Benign prostatic hyperplasia with urinary obstruction and other lower urinary tract symptoms (600.21) (N40.1,N13.8) Bradycardia (427.89) (R00.1) Breathing difficulty (786.09) (R06.89) CAD (coronary artery disease) (414.00) (I25.10) Change in voice (784.49) (R49.9) Elevated brain natriuretic peptide (BNP) level (790.99) (R79.89) 11/01/2021 = 129 ... 09/11/2021 = 155 ... 06/03/2021 = 112 Elevated troponin (790.6) (R77.8) 06/04/2021 = 0.49 ? 06/03/2021 = 0.66 AND 0.60 Fungal infection (117.9) (B49) H/O right coronary artery stent placement (V45.82) (Z95.5) Hoarseness of voice (784.42) (R49.0) Hypercholesterolemia (272.0) (E78.00) Hypertension (401.9) (I10) Laryngeal spasm (478.75) (J38.5) Laryngopharyngeal reflux (LPR) (478.79) (K21.9) Nocturia (788.43) (R35.1) Observed sleep apnea (780.57) (G47.30) Postoperative hypothyroidism (244.0) (E89.0) Snoring (786.09) (R06.83) SOB (shortness of breath) on exertion (786.05) (R06.02) Tobacco abuse (305.1) (Z72.0) Tobacco abuse counseling (V65.42,305.1) (Z71.6) Urge incontinence of urine (788.31) (N39.41) Urinary frequency (788.41) (R35.0) Weak urinary stream (788.62) (R39.12) Surgical History Problems History of Cardiac catheterization [06/06/2021, Dr. Brenna Pro]: Severe 1-vessel obstructive CAD in right-dominant circulation. Culprit mid RCA 95% thrombotic stenosis. Moderate non-hemodynamically significant proximal LAD 40-50% stenosis (RFR 0.94). Elevated left-sided filling pressure (LVEDP 25 mmHg end-expiration). No gradient on pull-back to suggest aortic stenosis. RFR of proximal LAD lesion 0.94 (<0.90 benefit from revascularization). History of Cardiac catheterization with stent placement [06/06/2021, Dr. Brenna Pro]: RCA stented with a 3.5 x 26 mm Resolute Holden stent History of Knee arthroscopy History of Knee surgery History of Thyr (more content not included)... Normal [facility] No Panel InformationOrdered By: II Dr. Cinthia Trammell on 02-22-2022 Prostate Specific Antigen Total 0.42 ng/mL 0.0-4.0 [facility] Comment on above: This test was perfor med using the TPSA assay method for theNeuropure chemistry system. Values obtained with differentassay methods cannot be used interchangably.When changing PSA assays in the course of monitoring apatient, additional sequential testing should be carriedout to confirm baseline values. Follow Up (Pulmonary Medicin e)on 02-07-2022 Follow Up (Pulmonary Medicine) Diagnoses/Problems Asthma (493.90) (J45.909) Patient Discussion/Summary Thank you for coming into the clinic today. It was a pleasure to see you! Today we discussed the following: - Continue current medications for the asthma and see us in 3 months. If you have any further questions feel free to call my office at [phone] and please allow 1-2 business days for a response. If you have any scheduling needs feel free to call [phone] Ernestina Hope Pulmonary and Critical Care Fellow [id number] [place] [address] Provider Impressions 61 year old male with PMH of asthma (positive methacholine), laryngeal spasm, former tobacco use, NSTEMI s/p RCA stent (2021) who presents to pulmonary clinic after a recent hospitalization for pneumonia. Patient reports a lot of family members being sick at home. Most likely this is what caused the pneumonia, probably viral in nature. Symptoms are improving now. Shortness of breath and cough have improved over the last 1 week, however not at baseline. #Asthma #Former tobacco abuse Symptoms are not well controlled, however had recent pneumonia. Given that compared to 1 week ago symptoms are improving, will continue current management. Will wait for 6-8 weeks to see if we need to uptitrate inhalers. - Continue Symbicort twice daily along with albuterol nebulizer as needed. - Due for low dose CT in April 2022 Follow up in clinic after low dose CT chest. Assessment and plan was discussed with Dr. Fulton. This note was created using speech recognition restaurant and bar manager software. Despite proofreading, several typographical errors might be present that might affect the meaning of the content. Ernestina Hope Pulmonary and Critical Care PGY-5 Chief Complaint Patient reports for Follow up. Patient states that Simbacort is somewhat helping. Former smoker since april- no assistance. Received Covid shot and 1 booster, No Flu shot History of Present Bmwhsrk62 year old male with PMH of asthma (positive methacholine), laryngeal spasm, former tobacco use, NSTEMI s/p RCA stent (2021) who presents to pulmonary clinic after a recent hospitalization for pneumonia. Patient presented to the [facility] on 01/[facility] and was told that he had pneumonia, did not require hospitalization and was discharged home. He received levofloxacin and prednisone for a week. Patient reports that everyone at home was sick in the beginning of January. Symptoms are improving now. Shortness of breath and cough have improved over the last 1 week, however not at baseline. Patient uses Symbicort twice daily along with albuterol nebulizer as needed. PMH: Asthma, CAD s/p RCA stent, laryngospasm, BPH, HLD PSH: knee surgery, thyroidectomy FH: Father with emphysema SH: Former tobacco user: 40 year history, quit April 2021, had previously smoked a pack per day, social etoh, no illicits. 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 Methacholine Challenge test 01/08/22: Positive test with 20% drop in FEV1(between 0.5-1mg) PFT 11/01/2021: No obstruction observed (FEV1/FVC Z score -1.18), normal TLC, +gas trapping, borderline reduced DLCO, flow volume loops suggest upper airway obstruction Review of Systems Constitutional: Denies fever, weight loss or night sweats. Eyes: Denies blurring of vision or double vision. ENT: Denies nasal discharge, ear pain or throat pain. Respiratory: As noted in HPI. Cardiovascular: Denies chest pain or palpitations. Gastrointestinal: Denies abdominal pain, nausea, vomiting, diarrhea or constipation. Neurological: Denies headache, confusion or lightheadedness. All other systems have been reviewed and are negative. Active Problems Acute coronary syndrome (411.1) (I24.9) Agatston coronary artery calcium score between 200 and 399 (793.2) (R93.1) [06/05/2021] = 225.3 (LM 19.2, LAD 168, LCx 38.1, RCA 0) Asthma (493.90) (J45.909) Benign prostatic hyperplasia with urinary obstruction and other lower urinary tract symptoms (600.21) (N40.1,N13.8) Bradycardia (427.89) (R00.1) Breathing difficulty (786.09) (R06.89) CAD (coronary artery disease) (414.00) (I25.10) Change in voice (784.49) (R49.9) Elevated brain natriuretic peptide (BNP) level (790.99) (R79.89) 11/01/2021 = 129 ... 09/11/2021 = 155 ... 06/03/2021 = 112 Elevated troponin (790.6) (R77.8) 06/04/2021 = 0.49 ? 06/03/2021 = 0.66 AND 0.60 Fungal infection (117.9) (B49) H/O right coronary artery stent placement (V45.82) (Z95.5) Hoarseness of voice (784.42) (R49.0) Hypercholesterolemia (272.0) (E78.00) Hypertension (401.9) (I10) Laryngeal spasm (478.75) (J38.5) Laryngopharyngeal reflux (LPR) (478.79) (K21.9) Nocturia (788.43) (R35.1) Observed sleep apnea (780.57) (G47.30) Postoperative hypothyroidism (244.0) (E89.0) Snoring (786.09) (R06.83) SOB (shortness of breath) on exertion (786.05) (R06.02) Tobacco abuse (3 (more content not included)... Normal [employer] Tobacco Screening.on Adult depression screening assessment No [facility] [facility] [facility] Work Phone: Fall risk assessment a) No falls within the last year [facility] [facility] Work Phone: Tobacco use status CPHS b) No M [facility] [facility] Work Phone: Chart Updateon 01-25-2022 Chart Update Chart Update Received message from Mrs. Cole that Mr. Cole was went to [facility] for health issues on 01/24/22. Called today and spoke with Mr. Cole. He developed SOB, respiratory issues and went to local ED. Was told that I have the flu or maybe pneumonia. He is being treated with antibiotics x 5 days and steroid burst. Still feels SOB and taking albuterol prn. Taking symbicort as well as gets some relief. Has f/u scheduled for 02/07/22. Informed pt that if he worsens or fails to improve by end of next week, he should call and move up appointment if possible and/or if symptoms are significantly worsening, to go to local ER. Pt understood. Encouraged pt to complete all medications and continue inhalers. Pt amenable to plan. Signatures Electronically signed by : Leta Lu MD; Jan 25 2022 12:22PM EST (Author) Normal [employer] Absolute lymphocyte countOrd ered By: Dr. Vera on 01-24-2022 Lymphocytes Auto (Unsp spec) [#/Vol] 0.58 10*3/uL 0.83-4.51 [facility] Basophil percentageOrdered B y: Dr. Vera on 01-24-2022 Basophils/100 WBC (Bld) 0.2 % 0-1 [facility] Chloride [Moles/Vol] 102 mmol/L 98-107 [facility] Eosinophils/100 WBC (Bld) 0.1 % 0-5 [facility] Glucose [Mass/Vol] 123 mg/dL 74-106 [facility] Comment on above: Fasting Glucose resu lt from 100 to 125 mg/dL suggests IMPAIRED HOMEOSTASIS per A.D.A. criteria. Neutrophils (Bld) [#/Vol] 7.8 10*3/uL 2.0-7.7 [facility] Neutrophils/100 WBC (Bld) 87.2 % 47-70 [facility] Potassium [Moles/Vol] 3.9 mmol/L 3.5-5.1 [facility] Sodium [Moles/Vol] 137 mmol/L 136-145 [facility] WBC (Bld) [#/Vol] 8.9 10*3/uL 4.4-11.0 [facility] Blood erythrocytes count (nu mber/volume)Ordered By: Dr. Vera on 01-24-2022 RBC (Bld) [#/Vol] 4.72 10*6/uL 4.6-6.2 [facility] Blood hemoglobin measurement (mass/volume)Ordered By: Dr. Vera on 01-24-2022 Hemoglobin (Bld) [Mass/Vol] 14.3 g/dL 13.0-16.5 [facility] Blood lymphocytes/100 leukoc ytesOrdered By: Dr. Vera on 01-24-2022 Lymphocytes/100 WBC (Bld) 6.5 % 19-41 [facility] Blood manual differential co mment interpretation (narrative result)Ordered By: Dr. Vera on 01-24-2022 Manual differential comment Buck (Bld) [Interp] SCANNED [facility] Blood monocytes/100 leukocyt esOrdered By: Dr. Vera on 01-24-2022 Monocytes/100 WBC (Bld) 5.7 % 0-10 [facility] Blood platelet mean volumeOr dered By: Dr. Vera on 01-24-2022 Platelet mean volume (Bld) [Entitic vol] 11.1 fL 6.2-12.0 [facility] Determination of erythrocyte mean corpuscular volume (MCV)Ordered By: Dr. Vera on 01-24-2022 MCV (RBC) [Entitic vol] 93.4 fL 80-94 [facility] Hematocrit Auto (Bld) [Volum e fraction]Ordered By: Dr. Vera on 01-24-2022 Hematocrit (Bld) [Volume fraction] 44.1 % 40-54 [facility] Influenza virus A and B and SARS-CoV-2 (COVID-19) Ag panel - Upper respiratory specimOrdered By: Dr. Vera on 01-24-2022 SARS-CoV-2 (COVID-19) RNA YOLY+probe Ql (Resp) [facility] Laboratory - Chemistry and C hemistry - challengeOrdered By: Dr. Vera on 01-24-2022 CO2 [Moles/Vol] 29.0 mmol/L 21.0-32.0 [facility] Natriuretic peptide B (Bld) [Mass/Vol] 110.9 pg/mL 0-100 [facility] Urea nitrogen/Creatinine [Mass ratio] 11.3 mg/mg 10-20 [facility] Laboratory - Hematology and Cell countsOrdered By: Dr. Vera on 01-24-2022 Erythrocyte distribution width (RBC) [Entitic vol] 45.9 fL 35.1-43.9 [facility] Erythrocyte distribution width (RBC) [Ratio] 13.3 % 11.6-14.6 [facility] Immature granulocytes/100 WBC (Bld) 0.300 % 0.0-0.9 [facility] Comment on above: IG% - Immature Granu locytes (promyelocytes, myelocytes and metamyelocytes) > 1% indicates that a LEFT SHIFT is Present. MCH (RBC) [Entitic mass] 30.3 pg 27.0-32.0 [facility] Nucleated RBC/100 WBC (Bld) [Ratio] 0 % 0-5 [facility] MCHC Auto (RBC) [Mass/Vol]Or dered By: Dr. Vera on 01-24-2022 MCHC (RBC) [Mass/Vol] 32.4 g/dL 32-36 [facility] No Panel InformationOrdered By: Dr. Vera on 01-24-2022 Estimated Creatinine Clearance Calc 56.85 ml/min [facility] Estimated GFR (MDRD) Amer 70 mL/min >60 [facility] Comment on above: GFR Calc Estimated GFR (MDRD) Non-Af Amer 58 mL/min >60 [facility] Comment on above: Non- GFR Calc Platelets bldOrdered By: Dr. Vera on 01-24-2022 Platelets (Bld) [#/Vol] 171 10*3/uL 150-450 [facility] RSV Ag EIAOrdered By: Dr. Mariposa levy on 01-24-2022 RSV Ag Immune stain Ql (Tiss) [facility] Serum or plasma calcium leona urement (mass/volume)Ordered By: Dr. Vera on 01-24-2022 Calcium [Mass/Vol] 9.3 mg/dL 8.5-10.1 [facility] Serum or plasma creatinine m easurement (mass/volume)Ordered By: Dr. Vera on 01-24-2022 Creatinine [Mass/Vol] 1.33 mg/dL 0.70-1.30 [facility] Comment on above: The validity of the calculated GFR & GFRAA in patients over 70 years has not been determined. Clinical correlation is essential. Serum or plasma urea nitroge n measurement (mass/volume)Ordered By: Dr. Vera on 01-24-2022 Urea nitrogen [Mass/Vol] 15 mg/dL 7-18 [facility] Thin prep Papanicolaou smear with manual screeningOrdered By: Dr. Vera on 01-24-2022 Thin prep Papanicolaou smear with manual screening 6 5-15 [facility] Follow Up (Pulmonary Medicin e)on 01-08-2022 Follow Up (Pulmonary Medicine) Diagnoses/Problems Asthma (493.90) (J45.909) SOB (shortness of breath) on exertion (786.05) (R06.02) Orders Start: Symbicort 80-4.5 MCG/ACT Inhalation Aerosol (Budesonide-Formoterol Fumarate); INHALE 2 PUFFS TWICE DAILY. RINSE MOUTH AFTER USE Rx By: Leta Lu; Dispense: 90 Days ; #:3 X 6.9 GM Inhaler; Refill: 3;For: Asthma; NAMRATA = N; Verified Transmission to [facility]; Last Updated By: Merfac; 01/08/2022 2:50:19 PM Otolaryngology Follow-Up Outpatient Follow-up Status: Hold For - Scheduling Requested for: 08Jan2022 Ordered Stat;For: Asthma; Ordered By: Leta Lu Performed: Due: [id number] Tobacco Use Screening; Status:Complete; Done: 08Jan2022 Perform:Not Applicable;Ordered; For:SocHx: Former smoker; Ordered By:Wen Griffin; Patient Discussion/Summary It was nice seeing you in clinic. We discussed the results of your methacholine challenge test and it was positive for asthma. Based on this and your continued shortness of breath, we will start a new inhaler to help manage your symptoms. It is called symbicort and will take 2-4 weeks of consistent use to start seeing the effects. In addition, with your history of larygospasm, I think it would be beneficial to follow up with Dr. Mcfarlane of ENT, whom you last saw in April. This may also be contributing to your shortness of breath (SOB). Here are our recommendations: Start symbicort 2 puffs twice a day, please remember to rinse your mouth out afterwards each time Continue albuterol nebulizer as needed for SOB and/or wheezing Referral for follow up with Dr. Mcfarlane of ENT to re-evaluate your laryngeal spasm Follow up in 4-6 weeks. Leta SALAZARA Pulmonary Critical Care Fellow Provider Impressions 61 yo M with PMH of laryngeal spasm, former tobacco use, NSTEMI s/p RCA stent (2021) who presents to pulmonary clinic for SOB and wheezing, evaluation of symptoms of dyspnea/throat closing sensation that occur monthly. Seen by ENT, allergy, hematology. Thought to be laryngeal spasm, possibly related to reflux, without concern for angioedema or allergic cause. Methacholine challenge test positive, so likely related to ashtma as well. Due to continued SOB/CAAL, methacholine challenge test done and reveals positive results for asthma. This likely is the etiology for his persistent SOB/CAAL; however, Mr. Cole does mention recent episode of laryngospasm as well as some voice hoarseness. While the spasm improved with albuterol inhaler, I think it would be prudent to return to Dr. Mcfarlane of ENT for further evaluation. In light of his positive methacholine challenge test, I recommend to start ICS/LABA inhaler SOB/CAAL due to Asthma -methacholine challenge test positive -start symbicort 2p BID -continue albuterol prn -acapella device given to help with airway clearance; reviewed with RT on how to use Laryngeal spasm, Voice hoarseness -recent episode of laryngeal spasm per on 12/31/21 -last seen ENT on 04/2021; Per ENT, fungal laryngitis suspected vs reflux changes -referral for follow up placed -agree with ppi Former Tobacco Abuse -quit -due for low dose CT in April 2022 RTC in 4-[address] Gonzalez Chief Complaint Pt here today for FUV. Pt has received his COVID vaccines and declines the flu vaccine today. follow up dyspnea FREDDIE COLE is here for a follow-up visit. Reason for Visit: dyspnea. History of Present Illness 61 yo M with PMH of laryngeal spasm, former tobacco use, NSTEMI s/p RCA stent (2021) who presents to pulmonary clinic for SOB and wheezing. Since last visit (11/27/21), states SOB/CAAL is stable. Underwent PSG, but RNs felt that he had increased work of breathing and didn't proceed with PSG as they felt it would be unsafe with his breathing; sent him to [facility] ED where he received albuterol breathing treatment. [...] test done prior to appointment today; positive results. PMH: CAD s/p RCA stent laryngospasm BPH high cholesterol Surgical hx: knee surgery thyroidectomy Family hx: father with emphysema Social: Former tobacco user: 40 year history, quit April 2021, had previously smoked a pack per day social etoh no illicits [employer], outside work, for past 14 years, retired 2021 [employer] prior Methacholine Challenge test 01/08/22: Positive test with 20% drop in FEV1(b (more content not included)... Normal [employer] [facility] Tobacco Screening.on 022 Adult depression screening assessment No [facility] [facility] Work Phone: Fall risk assessment a) No falls within the last year [facility] [place] [facility] Work Phone: Tobacco use status [facility] b) No M [facility] [facility] Work Phone: Laboratory - Chemistry and C hemistry - challengeon 12-18-2021 Anion gap [Moles/Vol] 14 mmol/L 10 - 20 [facility] [address] [place] Work Phone: Calcium [Mass/Vol] 9.3 mg/dL 8.6 - 10.6 [facility] di[facility] [address] [place] Work Phone: Chloride [Moles/Vol] 103 mmol/L 98 - 107 [facility] ardiolo [facility] [address] [place] Work Phone: CO2 [Moles/Vol] 27 mmol/L 21 - 32 [facility] [address] [place] Work Phone: Creatinine [Mass/Vol] 1.23 mg/dL See Below [facility] [address] [place] Work Phone: Comment on above: Reference Range: 0.5 0 - 1.30 Glucose [Mass/Vol] 164 mg/dL above high threshold 74 - 99 [facility] [address] [place] Work Phone: Potassium [Moles/Vol] 4.5 mmol/L 3.5 - 5.3 [facility] [address] [place] Work Phone: Sodium [Moles/Vol] 139 mmol/L 136 - 145 [facility] [address] [place] Work Phone: Urea nitrogen [Mass/Vol] 14 mg/dL 6 - 23 [facility] [address] [place] Work Phone: No Panel Informationon 12-18 66 {mL/min/1.73m2} >90 [facility] [address] [place] Work Phone: Comment on above: CALCULATIONS OF LILI MATED GFR ARE PERFORMED USING THE 2020 CKD-EPI STUDY REFIT EQUATION WITHOUT THE RACE VARIABLE FOR THE IDMS-TRACEABLE CREATININE METHODS.https://jasn.asnjournals.org/content// ASN.3287254109 BNPon 12-09-2021 Natriuretic peptide B (Bld) [Mass/Vol] 81 pg/mL Normal 0 - 99 [facility] Comment on above: Result Comment: . <1 00 pg/mL - Heart failure unlikely 100-299 pg/mL - Intermediate probability of acute heart . failure exacerbation. Correlate with clinical . context and patient history. >=300 pg/mL - Heart Failure likely. Correlate with clinical . context and patient history. BNP testing is performed using different testing methodology at [facility] than at other [facility]. Direct result comparisons should only be made within the same method. Performed By: #### B NP2 #### [address] [address] CBC AND DIFFERENTIALon 12-09 Basophils (Bld) [#/Vol] 0.00 10*3/uL Normal 0.00 - 0.1 0 [facility] Comment on above: Performed By: #### C BCDF #### [address] [address] Basophils/100 WBC (Bld) 0.4 % Normal 0.0 - 2.0 [facility] Comment on above: Performed By: #### C BCDF #### [address] [address] Eosinophils (Bld) [#/Vol] 0.10 10*3/uL Normal 0.00 - 0.70 [facility] Comment on above: Performed By: #### C BCDF #### [address] [address] Eosinophils/100 WBC (Bld) 1.0 % Normal 0.0 - 6.0 [facility] Comment on above: Performed By: #### C BCDF #### [address] [address] Erythrocyte distribution width (RBC) [Ratio] 13.3 % Normal 11.5 - 14.5 [facility] Comment on above: Performed By: #### C BCDF #### [address] [address] Hematocrit (Bld) [Volume fraction] 40.0 % Low 41.0 - 52.0 [facility] Comment on above: Performed By: #### C BCDF #### [address] [address] Hemoglobin (Bld) [Mass/Vol] 13.5 g/dL Normal 13.5 - 17.5 [facility] Comment on above: Performed By: #### C BCDF #### [address] [address] Lymphocytes (Bld) [#/Vol] 2.30 10*3/uL Normal 1.20 - 4.80 [facility] Comment on above: Performed By: #### C BCDF #### [address] [address] Lymphocytes/100 WBC (Bld) 26.8 % Normal 13.0 - 44.0 [facility] Comment on above: Performed By: #### C BCDF #### [address] [address] MCHC (RBC) [Mass/Vol] 33.9 g/dL Normal 32.0 - 36.0 [facility] Comment on above: Performed By: #### C BCDF #### [address] [address] MCV (RBC) [Entitic vol] 92 fL Normal 80 - 100 [facility] Comment on above: Performed By: #### C BCDF #### [address] [address] Monocytes (Bld) [#/Vol] 0.60 10*3/uL Normal 0.10 - 1.0 0 [facility] Comment on above: Performed By: #### C BCDF #### [address] [address] Monocytes/100 WBC (Bld) 7.5 % Normal 2.0 - 10.0 [facility] Comment on above: Performed By: #### C BCDF #### [address] [address] Neutrophils (Bld) [#/Vol] 5.40 10*3/uL Normal 1.20 - 7.70 [facility] Comment on above: Result Comment: Perc ent differential counts (%) should be interpreted in the context of the absolute cell counts (cells/L). Performed By: #### C BCDF #### [address] [address] Neutrophils/100 WBC (Bld) 64.3 % Normal 40.0 - 80.0 [facility] Comment on above: Performed By: #### C BCDF #### [address] [address] NUCLEATED RBC 0.1 /100 WBC Normal [facility] Comment on above: Performed By: #### C BCDF #### [address] [address] Platelets (Bld) [#/Vol] 186 10*3/uL Normal 150 - 450 [facility] Comment on above: Performed By: #### C BCDF #### [address] [address] RBC 4.35 x10E12/L Low 4.50 - 5.90 [facility] Comment on above: Performed By: #### C BCDF #### [address] [address] WBC (Bld) [#/Vol] 8.4 10*3/uL Normal 4.4 - 11.3 [facility] Comment on above: Performed By: #### C BCDF #### [address] [address] CHEST 1 VIEWon 12-09-2021 CHEST 1 VIEW Patient Name: FREDDIE COLE STUDY: CHEST 1 VIEW; 12/08/2021 11:18 pm INDICATION: dyspnea . COMPARISON: 06/03/2021 ACCESSION NUMBER(S): [id number] ORDERING CLINICIAN: ALFA CABALLERO FINDINGS: No consolidation, pleural effusion, or pneumothorax. Slight low lung volumes. Heart size is normal. No acute osseous abnormality. Degenerative changes about the shoulders and spine. IMPRESSION: 1. No acute cardiopulmonary process. Electronically signed by: RAJI JENNINGS DO Normal [facility] COMPREHENSIVE PANELon 2021 Albumin [Mass/Vol] 4.2 g/dL Normal 3.4 - 5.0 [facility] Comment on above: Performed By: #### C MP #### [address] [address] ALP [Catalytic activity/Vol] 84 U/L Normal 33 - 136 [facility] Comment on above: Performed By: #### C MP #### [address] [address] ALT [Catalytic activity/Vol] 17 U/L Normal 10 - 52 [facility] Comment on above: Result Comment: Sadaf ents treated with Sulfasalazine may generate falsely decreased results for ALT. Performed By: #### C MP #### [address] [address] Anion gap [Moles/Vol] 11 mmol/L Normal 10 - 20 [facility] Comment on above: Performed By: #### C MP #### [address] [address] AST [Catalytic activity/Vol] 14 U/L Normal 9 - 39 [facility] Comment on above: Performed By: #### C MP #### [address] [address] Bilirubin [Mass/Vol] 0.5 mg/dL Normal 0.0 - 1.2 [facility] Comment on above: Performed By: #### C MP #### [address] [address] Calcium [Mass/Vol] 9.2 mg/dL Normal 8.6 - 10.3 [facility] Comment on above: Performed By: #### C MP #### [address] [address] Chloride [Moles/Vol] 102 mmol/L Normal 98 - 107 [facility] Comment on above: Performed By: #### C MP #### [address] [address] Creatinine [Mass/Vol] 1.26 mg/dL Normal 0.50 - 1.30 [facility] Comment on above: Performed By: #### C MP #### [address] [address] GFR/1.73 sq M.predicted among non-blacks MDRD (S/P/Bld) [Vol rate/Area] 64 mL/min/{1.73_m2} Normal >90 [facility] Comment on above: Result Comment: CALC ULATIONS OF ESTIMATED GFR ARE PERFORMED USING THE 2020 CKD-EPI STUDY REFIT EQUATION WITHOUT THE RACE VARIABLE FOR THE IDMS-TRACEABLE CREATININE METHODS. https://jasn.asnjournals.org/content/early/ASN.2020 117041 Performed By: #### C MP #### [address] [address] Glucose [Mass/Vol] 102 mg/dL High 74 - 99 [facility] Comment on above: Performed By: #### C MP #### [address] [address] HCO3 (Bld) [Moles/Vol] 30 mmol/L Normal 21 - 32 [facility] Comment on above: Performed By: #### C MP #### [address] [address] Potassium [Moles/Vol] 3.5 mmol/L Normal 3.5 - 5.3 [facility] Comment on above: Performed By: #### C MP #### [address] [address] Protein [Mass/Vol] 6.9 g/dL Normal 6.4 - 8.2 [facility] Comment on above: Performed By: #### C MP #### [address] [address] Sodium [Moles/Vol] 139 mmol/L Normal 136 - 145 [facility] Comment on above: Performed By: #### C MP #### [address] [address] Urea nitrogen [Mass/Vol] 18 mg/dL Normal 6 - 23 [facility] Comment on above: Performed By: #### C MP #### [address] [address] Provider Note - ED v3on 11-19 Provider Note - ED v3 Provider Note: Chart Review: ED NOTES ED NOTES: History of Present Illness: 61-year-old male presents with concern for shortness of breath. Patient was at a sleep study when they sent him to the ER for evaluation given wheezing and decreased air movement. Patient states he has had the symptoms for 6 months. States that a year and a half ago he began having attacks where he felt like he could not breathe. Was diagnosed with hereditary angioedema. Was on steroids for a long period of time. States that 6 months ago he woke up and he was very swollen. Went to [facility] where they performed a catheterization and placed a stent for an obstructed coronary artery. States that since that time he has had difficulty breathing. Has been seen by cardiology and pulmonology. Is currently on inhalers. They have yet to figure out why he is wheezing. Denies any fever, chills, cough, nausea, vomiting, diaphoresis, abdominal pain, chest pain, sick contacts. Past Medical History: Hypothyroidism, hereditary angioedema, hypertension, CAD Past surgical History: PCI Family history: Reviewed and not pertinent to complaint Social history: Denies any drug or alcohol abuse. __ REVIEW OF SYSTEMS: Pertinent negatives and positives noted in the HPI. Otherwise, a complete review of system was negative. __ PHYSICAL EXAM: Appearance: Alert, oriented , cooperative, in no acute distress. Skin: Intact, dry skin, no lesions, rash, petechiae or purpura. Eyes: PERRLA, EOMs intact, Conjunctiva pink with no redness or exudates. HENT: Normocephalic, atraumatic. Nares patent. No intraoral lesions. Neck: Supple, without meningismus. Trachea at midline. No lymphadenopathy. Pulmonary: Coarse breath sounds bilaterally. No respiratory distress. Cardiac: Regular rate and rhythm, no rubs, murmurs, or gallops. Abdomen: Abdomen is soft, nontender, and nondistended. No palpable organomegaly. No rebound or guarding. No CVA tenderness. Nonsurgical abdomen Genitourinary: Exam deferred. Musculoskeletal: Full range of motion. Pulses full and equal. No cyanosis, clubbing, or edema. Neurological: Cranial nerves are grossly intact, grossly normal sensation, no weakness, no focal findings identified. Psychiatric: Appropriate mood and affect. HISTORY OF PRESENTING ILLNESS FREDDIE is a 61 year old Male and was seen by me at 08-Dec-2021 22:49 for a chief complaint of difficulty breathing (Patient to ED reference difficulty breathing. Patient states he had a heart cath with stents placed in May and has been having this difficulty breathing ever since. He has been seen and treated for it but it hasn't helped at all. Patient was at sleep study and was wheezing and spo2 dropped and was sent to the ED.)(1). Triage Information: Most recent Vital Sign Value Date Temp (F): 97.6 12-08-2021 22:51 Temp (C): 36.4 12-08-2021 22:51 Heart Rate (beats/min): 75 12-08-2021 22:51 Respirations (breaths/min): 20 12-08-2021 22:51 SpO2 (%): 98 12-08-2021 22:51 BP Systolic (mm Hg): 153 12-08-2021 22:51 BP Diastolic (mm Hg): 107 12-08-2021 22:51 PAST MEDICAL HISTORY ALLERGIES/INTOLERANCES: No Known Allergies HEALTH HISTORY: Medical History Name:BPH (benign prostatic hyperplasia) Code:N40.0 Name:Graves disease Code:E05.00 Name:S/P drug eluting coronary stent placement Code:Z95.5 Name:CAD (coronary artery disease) Code:I25.10 OUTPATIENT MEDICATIONS: Home Medications Review Status for Reconciliation: Incomplete Med Status: Incomplete Medication History Drug Name: levothyroxine 150 mcg (0.15 mg) oral tablet Instructions: 1 tab(s) orally once a day Drug Name: tamsulosin 0.4 mg oral capsule Instructions: 1 orally 2 times a day Drug Name: omeprazole 40 mg oral delayed release capsule Instructions: 1 cap(s) orally once a day Drug Name: acetaminophen 325 mg oral tablet Instructions: 2 tab(s) orally every 6 hours, As needed, Pain - Mod (4-6) Drug Name: albuterol 90 mcg/inh inhalation aerosol Instructions: inhaled 4 times a day Drug Name: atorvastatin 80 mg oral tablet Instructions: 1 tab(s) orally once a day -.Meds to Beds Drug Name: ezetimibe 10 mg oral tablet Instructions: 1 tab(s) orally once a day -.Meds to Beds Drug Name: clopidogrel 75 mg oral tablet Instructions: 1 tab(s) orally once a day -.Meds to Beds Drug Name: aspirin 81 mg oral tablet, chewable Instructions: 1 tab(s) orally once a day -.Meds to Beds Drug Name: polyethylene glycol 3350 oral powder for reconstitution Instructions: 17 gram(s) orally 2 times a day Drug Name: sennosides-docusate 8.6 mg-50 mg oral tablet Instructions: 2 tab(s) orally 2 times a day Drug Name: furosemide 40 mg oral tablet Instructions: 1 tab(s) orally once a day -.Me (more content not included)... Normal [facility] Risk Screen - Adult Emergenc yon 12-09-2021 Risk Screen - Adult Emergency Preferred Language: Preferred Language: Preferred Language for Discussing Health Care (patient/designee)Bello stephenson Patient Preferred Pharmacy: Patient Preferred Pharmacy Statement: I have reviewed and updated the patient's preferred pharmacy selection for today's visit. Advanced Directives: Advance Directive/DNRyes Family Violence Adult: Abuse Screen: Are you or have you been threatened or abused physically, emotionally, or sexually by anyoneno Learning Assessment (Patient): Learning Assessment (Patient): Patient is Able to be Assessed for Learningyes Factors Influencing Readiness to Learnmotivation to learn Factors that Impact Ability to Learnnone Devices/Methods Used to Communicatenone Learning Preferenceswritten material; verbal instruction Cultural Considerationsnone Developmental Considerationsnone Holiness Considerationsnone Learning Assessment (Other Learner): Learning Assessment (Other Learner): Other learner availableno Pressure Injury/TB/Substance: Pressure Injury: Pressure Injury Present on Admissionno Do you have a coughyes... Has your cough lasted longer than 2 weeksunknown... Do any of the following applynone of the above Does the pt. have risk factors of, or a hx of TBnone of the above Smoking Statusformer smoker Alcohol Usedenies Drug Usedenies Drug 2 Usedenies Admission Risk Screen: Significant IndicatorsComplete CAGE: CAGE: Is this an injured patient at a Trauma Center ([facility]/[place] /[place]): no Electronic Signatures: Ann Rudd) (Signed 09-Dec-2021 01:01) Authored: Preferred Language, Patient Preferred Pharmacy, Advanced Directives, Family Violence Adult, Learning Assessment (Patient), Learning Assessment (Other Learner), Pressure Injury/TB/Substance, Pressure Injury, CAGE Last Updated: 09-Dec-2021 01:01 by Ann Rudd (RN) Normal [facility] TROPONIN I, HIGH SENSITIVITY on 12-09-2021 TROPONIN I, HIGH SENSITIVITY 6 ng/L Normal 0 - 20 [facility] Comment on above: Result Comment: . Less than 99th percentile of normal range cutoff- Female and children under 18 years old <14 ng/L; Male <21 ng/L: Negative Repeat testing should be performed if clinically indicated. . Female and children under 18 years old 14-50 ng/L; Male 21-50 ng/L: Consistent with possible cardiac damage and possible increased clinical risk. Serial measurements may help to assess extent of myocardial damage. . >50 ng/L: Consistent with cardiac damage, increased clinical risk and myocardial infarction. Serial measurements may help assess extent of myocardial damage. . NOTE: Children less than 1 year old may have higher baseline troponin levels and results should be interpreted in conjunction with the overall clinical context. . NOTE: Troponin I testing is performed using a different testing methodology at [facility] than at other [facility]. Direct result comparisons should only be made within the same method. Performed By: #### [facility] #### [facility] [address] [place] [address] TROPONIN I, HIGH SENSITIVITY 7 ng/L Normal 0 - 20 [facility] Comment on above: Result Comment: . Less than 99th percentile of normal range cutoff- Female and children under 18 years old <14 ng/L; Male <21 ng/L: Negative Repeat testing should be performed if clinically indicated. . Female and children under 18 years old 14-50 ng/L; Male 21-50 ng/L: Consistent with possible cardiac damage and possible increased clinical risk. Serial measurements may help to assess extent of myocardial damage. . >50 ng/L: Consistent with cardiac damage, increased clinical risk and myocardial infarction. Serial measurements may help assess extent of myocardial damage. . NOTE: Children less than 1 year old may have higher baseline troponin levels and results should be interpreted in conjunction with the overall clinical context. . NOTE: Troponin I testing is performed using a different testing methodology at [facility] than at other system [facility]. Direct result comparisons should only be made within the same method. Performed By: #### [facility] #### [id number] [place] [address] Tropinin I.cardiac panel High sensitivity method 6 ng/L 0 - 20 [facility] [address] [place] Work Phone: Comment on above: .Less than 99th perc entile of normal range cutoff-Female and children under 18 years old <14 ng/L; Male <21 ng/L: NegativeRepeat testing should be performed if clinically indicated. .Female and children under 18 years old 14-50 ng/L; Male 21-50 ng/L:Consistent with possible cardiac damage and possible increased clinical risk. Serial measurements may help to assess extent of myocardial damage. .>50 ng/L: Consistent with cardiac damage, increased clinical risk andmyocardial infarction. Serial measurements may help assess extent of myocardial damage. . NOTE: Children less than 1 year old may have higher baseline troponin levels and results should be interpreted in conjunction with the overall clinical context. .NOTE: Troponin I testing is performed using a different testing methodology at [facility] than at other [facility]. Direct result comparisons should only be made within the same method. Triage - EDon 12-09-2021 Triage - ED Quick Triage: The patient and/or guardian verbally acknowledges placement for services into the following (when Urgent Care Service hours are operating):emergency department Chart Review: ARRIVAL INFORMATION Mode of Arrival: private vehicle CHIEF COMPLAINT FREDDIE COLE is a Male patient with a chief complaint of difficulty breathing (Patient to ED reference difficulty breathing. Patient states he had a heart cath with stents placed in May and has been having this difficulty breathing ever since. He has been seen and treated for it but it hasn't helped at all. Patient was at sleep study and was wheezing and spo2 dropped and was sent to the ED.). Onset of the Complaint: 07-Jun-2021 07:00 Triage Date/Time: 08-Dec-2021 22:51 KRYSTINA: 2 Vital Signs: Temperature: 97.6F ( 36.4C) taken temporal Blood Pressure: 153/107 Mean: Heart Rate: 75 Respiratory Rate: 20 Pulse Oximetry: 98% Height: 5 feet 9.00 inches. 175.2 CM Weight: 220.4 pounds. Calculated 100.0 kg. (stated) Calculated BMI (kg/m2): 32.578 Calculated BSA (m2) 2.21 Meagan Coma Scale: Best Eye Response: (E4) spontaneous Best Motor Response: (M6) obeys commands Best Verbal Response: (V5) oriented Meagan Score: 15 [place] Assessment Qualifiers: patient not sedated/intubated Cough lasting greater than 3 weeks: no Allergies: no Mask applied: yes Patient has homicidal thoughts: no Symptoms Are Negative For: body aches, chest pain, chills, congestion, cough, diaphoresis, dyspnea, fever, headache and malaise. Risk Screens Suicide Risk Screen In the Past Month: Have you wished you were or wished you could go to sleep and not wake up no In the Past Month: Have you had any actual thoughts of killing yourself no In Your Lifetime: Have you ever done anything, started to do anything, or prepared to do anything to end your life no Turner Fall Scale Screening Has the patient fallen before (or is the patient in the ED as a result of a fall) has not had a fall Does the patient have an impaired gait does not have impaired gait Is the patient cognitively impaired not cognitively impaired Interventions: Turner Fall Interventions: LOW INTERVENTIONS: *patient oriented to surroundings and call system, * patient/family falls education completed and documented, *patients fall status communicated during bedside handoff, *whiteboard updated, *mode of toileting discussed with patient, *bed in low position with brakes locked, *call light in reach, * non-skid footwear TRAVEL HISTORY Travel History Coronavirus Screening: no exposure or symptoms Travel Exposure History: NO travel to International locations in the past 30 days PAIN Pain Scale Used: TIEN Past Medical History: Past Medical History Reviewedyes cardiac stent: Past Surgical History, Active Coronary Artery Disease (CAD): Past Medical History, Active Electronic Signatures: Nikolai Dubon (EMT-P) (Signed 08-Dec-2021 22:56) Authored: Quick Triage, Risk Screens, Pain, Travel History, Chart Review, Scores Jonna Brandt (RN) (Signed 08-Dec-2021 23:26) Authored: Quick Triage, Chart Review, Past Medical History Last Updated: 08-Dec-2021 23:26 by Jonna Brandt (RN) Normal [facility] Ancillary Visit (Sleep Lab)o n 12-08-2021 Ancillary Visit (Sleep Lab) Risk Screening Initial Fall Risk Screening: FREDDIE has not fallen in the last 6 months. His fall did not result in injury. FREDDIE does not have a fear of falling. He does not need assistance with sitting, standing or walking. Does not need assistance walking in his home. He does not need assistance in an unfamiliar setting. The patient is not using an assistive device. Sleep Study Appointment FREDDIE COLE arrived for his appointment on 12/08/21 for PSG, He did not have the test done. Patient was sent to ER for breathing difficulties. Signatures Electronically signed by : Tanesha Tate, ; Dec 08 2021 11:46PM EST (Author) Normal [facility] Ancillary Visit (Sleep Lab) Risk Screening Initial Fall Risk Screening: FREDDIE has not fallen in the last 6 months. His fall did not result in injury. FREDDIE does not have a fear of falling. He does not need assistance with sitting, standing or walking. Does not need assistance walking in his home. He does not need assistance in an unfamiliar setting. The patient is not using an assistive device. Sleep Study Appointment FREDDIE COLE arrived for his appointment on 12/08/2021 for PSG, but did not complete the test. Patient was sent to ER for breathing difficulties. Signatures Electronically signed by : Tanesha Tate, ; Dec 08 2021 11:47PM EST (Author) Normal [facility] Complete Blood Count + Diffe tatetialon 12-08-2021 Basophils/100 WBC (Bld) 0.4 % 0.0 - 2.0 [facility] [address] [place] Work Phone: Erythrocyte distribution width (RBC) [Ratio] 13.3 % See Below [facility] [address] [place] Work Phone: Comment on above: Reference Range: 11. 5 - 14.5 Hematocrit (Bld) [Volume fraction] 40.0 % below low threshold See Below [facility] [address] [place] Work Phone: Comment on above: Reference Range: 41. 0 - 52.0 Hemoglobin (Bld) [Mass/Vol] 13.5 g/dL See Below [facility] [address] [place] Work Phone: Comment on above: Reference Range: 13. 5 - 17.5 Lymphocytes/100 WBC (Bld) 26.8 % See Below [facility] [address] [place] Work Phone: Comment on above: Reference Range: 13. 0 - 44.0 MCHC (RBC) [Mass/Vol] 33.9 g/dL See Below [facility] [address] [place] Work Phone: Comment on above: Reference Range: 32. 0 - 36.0 MCV (RBC) [Entitic vol] 92 fL 80 - 100 [facility] [address] [place] Work Phone: Monocytes/100 WBC (Bld) 7.5 % 2.0 - 10.0 [facility] [address] [place] Work Phone: Neutrophils/100 WBC (Bld) 64.3 % See Below [facility] [address] [place] Work Phone: Comment on above: Reference Range: 40. 0 - 80.0 Platelets (Bld) [#/Vol] 186 10*3/uL 150 - 450 [facility] [facility] [place] Work Phone: RBC (Bld) [#/Vol] 4.35 {x10E12/L} below low threshold See Below [facility] [facility] [place] Work Phone: Comment on above: Reference Range: 4.5 0 - 5.90 WBC (Bld) [#/Vol] 8.4 10*3/uL 4.4 - 11.3 [facility] [address] [place] Work Phone: Complete Blood Count + Differential 0.00 {x10E9/L} See Below [facility] [address] [place] Work Phone: Comment on above: Reference Range: 0.0 0 - 0.10 Complete Blood Count + Differential 0.10 {x10E9/L} See Below [facility] [address] [place] Work Phone: Comment on above: Reference Range: 0.0 0 - 0.70 Complete Blood Count + Differential 0.60 {x10E9/L} See Below [facility] [address] [place] Work Phone: Comment on above: Reference Range: 0.1 0 - 1.00 Complete Blood Count + Differential 2.30 {x10E9/L} See Below [facility] [address] [place] Work Phone: Comment on above: Reference Range: 1.2 0 - 4.80 Complete Blood Count + Differential 5.40 {x10E9/L} See Below [facility] [facility] [place] Work Phone: Comment on above: Reference Range: 1.2 0 - 7.70 Percent differential counts (%) should be interpreted in the context of the absolute cell counts (cells/L). Complete Blood Count + Differential 1.0 % 0.0 - 6.0 [facility] [facility] [place] Work Phone: Complete Blood Count + Differential 0.1 {/100_WBC} [facility] [address] [place] Work Phone: Laboratory - Chemistry and C hemistry - challengeon 12-08-2021 Albumin BCP dye [Mass/Vol] 4.2 g/dL 3.4 - 5.0 [facility] [facility] [place] Work Phone: ALP [Catalytic activity/Vol] 84 U/L 33 - 136 [facility] [facility] [place] Work Phone: ALT With P-5'-P [Catalytic activity/Vol] 17 U/L 10 - 52 [facility] [address] [place] Work Phone: Comment on above: Patients treated wit h Sulfasalazine may generate falsely decreased results for ALT. Anion gap [Moles/Vol] 11 mmol/L 10 - 20 [facility] [address] [place] Work Phone: AST With P-5'-P [Catalytic activity/Vol] 14 U/L 9 - 39 [facility] [address] [place] Work Phone: Bilirubin [Mass/Vol] 0.5 mg/dL 0.0 - 1.2 [facility] [address] [place] Work Phone: Calcium [Mass/Vol] 9.2 mg/dL 8.6 - 10.3 [facility] [address] [place] Work Phone: Chloride [Moles/Vol] 102 mmol/L 98 - 107 [facility] [address] [place] Work Phone: CO2 [Moles/Vol] 30 mmol/L 21 - 32 [facility] [address] [place] Work Phone: Creatinine [Mass/Vol] 1.26 mg/dL See Below [facility] [address] [place] Work Phone: Comment on above: Reference Range: 0.5 0 - 1.30 Glucose [Mass/Vol] 102 mg/dL above high threshold 74 - 99 [facility] [address] [place] Work Phone: Potassium [Moles/Vol] 3.5 mmol/L 3.5 - 5.3 [facility] [address] [place] Work Phone: Protein [Mass/Vol] 6.9 g/dL 6.4 - 8.2 [facility] [address] [place] Work Phone: Sodium [Moles/Vol] 139 mmol/L 136 - 145 [facility] [address] [place] Work Phone: Urea nitrogen [Mass/Vol] 18 mg/dL 6 - 23 [facility] [address] [place] Work Phone: No Panel Informationon 12-08 81 pg/mL 0 - 99 [facility] [facility] [place] Work Phone: Comment on above: . <100 pg/mL - Heart failure [id number] pg/mL - Intermediate probability of acute heart. failure exacerbation. Correlate with clinical. context and patient history. >=300 pg/mL - Heart Failure likely. Correlate with clinical. context and patient history.BNP testing is performed using different testing methodology at [facility] than at other [facility]. Direct result comparisons should only be made within the same method. 64 {mL/min/1.73m2} >90 [facility] [address] [place] Work Phone: Comment on above: CALCULATIONS OF LILI MATED GFR ARE PERFORMED USING THE 2020 CKD-EPI STUDY REFIT EQUATION WITHOUT THE RACE VARIABLE FOR THE IDMS-TRACEABLE CREATININE METHODS.https://jasn.asnjournals.org/content/early/ ASN.2437468674 Radiologyon 12-08-2021 XR Chest Single view Normal [facility] [address] [place] Work Phone: TROPONIN I, HIGH SENSITIVITY on 12-08-2021 Tropinin I.cardiac panel High sensitivity method 7 ng/L 0 - 20 [facility] [address] [place] Work Phone: Comment on above: .Less than 99th perc entile of normal range cutoff-Female and children under 18 years old <14 ng/L; Male <21 ng/L: NegativeRepeat testing should be performed if clinically indicated. .Female and children under 18 years old 14-50 ng/L; Male 21-50 ng/L:Consistent with possible cardiac damage and possible increased clinical risk. Serial measurements may help to assess extent of myocardial damage. .>50 ng/L: Consistent with cardiac damage, increased clinical risk andmyocardial infarction. Serial measurements may help assess extent of myocardial damage. . NOTE: Children less than 1 year old may have higher baseline troponin levels and results should be interpreted in conjunction with the overall clinical context. .NOTE: Troponin I testing is performed using a different testing methodology at [facility] than at other [facility]. Direct result comparisons should only be made within the same method. Follow Up (Pulmonary Medicin e)on 11-27-2021 Follow Up (Pulmonary Medicine) Diagnoses/Problems SOB (shortness of breath) on exertion (786.05) (R06.02) Orders Bronch Provocation-Methacholine Challenge; Status:Active; Requested for:27Nov2021; Perform:[facility]; Due:25Feb2022;Ordered; For:SOB (shortness of breath) on exertion; Ordered By:Leta Lu; Cough Assist Device; Status:Active; Requested for:27Nov2021; Perform:Not Applicable; Due:07Dec2021;Ordered; For:SOB (shortness of breath) on exertion; Ordered By:Leta Lu; Spirometry; Status:Active; Requested for:27Nov2021; Perform:[facility]; Due:25Feb2022;Ordered; For:SOB (shortness of breath) on exertion; Ordered By:Leta Lu; Patient Discussion/Summary Thank you for visiting us. Today we discussed your shortness of breath and wheezing. For your lungs, your last breathing test (from October) did not reveal any significant abnormalities that could explain your shortness of breath. As it read normal, I would like to obtain a methacholine challenge test that will assess for asthma and I will repeat your spirometry testing (as it previously showed upper airway obstruction, though when you last saw ENT earlier this year, they didn't seen any laryngeal abnormalities). Based on those results, we may need to add other inhalers. For now, continue using your albuterol nebulizer and inhaler as needed for shortness of breath and/or wheezing. Remember to ask about your CT chest for lung cancer screening, which you will be due for in April of 2022. Follow up in 4-6 weeks Provider Impressions 61 yo M with PMH of laryngeal spasm, former tobacco use, NSTEMI s/p RCA stent (2021) who presents to pulmonary clinic for SOB and wheezing. evaluation of symptoms of dyspnea/throat closing sensation that occur monthly. Seen by ENT, allergy, hematology. Thought to be laryngeal spasm, possibly related to reflux, without concern for angioedema or allergic cause. Recent PFTs do not show any obstruction and has normal TLC with some gas trapping and borderline low DLCO. Interestingly enough, his flow loops show upper airway obstruction, though last ENT visit didn't have any significant laryngeal findings that could be contributing to this. In addition, outside of the SOB, pt doesn't have a lot of upper airway obstructive symptoms. Based on his presentation, PFT findings and clinical symptoms, would obtain methacholine challenge test to assess for asthma with repeat spirometry. SOB/CAAL -methacholine challenge test and repeat spirometry ordered -continue albuterol prn -acapella device ordered to help with airway clearance -based on above PFT/[place], may need to consider adding spiriva -hold on ENT referral for larynx evaluation as prior visit earlier this spring was normal -breathing improved since diagnosis of NSTEMI/RCA lesion with stenting Laryngeal spasm -no recent signs of laryngeal spasm. Per ENT, fungal laryngitis suspected vs reflux changes -prn albuterol ok to continue for now -agree with ppi -continued gi follow up Tobacco Abuse -quit -due for low dose CT in April 2022 RTC in 4-[address] Bush Chief Complaint Routine follow up visit here to discuss results from recent breathing test. Patient has complaints of shortness of breath and wheezing for the past few months. Patient has had COVID vaccination but no flu vaccine. History of Present [id number] yo M with PMH of laryngeal spasm, former tobacco use, NSTEMI s/p RCA stent (2021) who presents to pulmonary clinic for SOB and wheezing. Since his RCA stent, pt denies any laryngeal [...] breathing. Denies chest pain, syncope. +Orthopnea, BLE edema. 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 Eyes: No double vision, no floaters. ENT: See HPI. Neck: No neck stiffness. Cardiovascular: No sharp chest pain, no heart racing, no leg swelling. Respiratory: a (more content not included)... Normal [facility] Laboratory - Chemistry and C hemistry - challengeon 11-27-2021 Anion gap [Moles/Vol] 12 mmol/L 10 - 20 [facility] Work Phone: Calcium [Mass/Vol] 9.4 mg/dL 8.6 - 10.6 [facility] Work Phone: Chloride [Moles/Vol] 104 mmol/L 98 - 107 [facility] Work Phone: CO2 [Moles/Vol] 31 mmol/L 21 - 32 [facility] Work Phone: Creatinine [Mass/Vol] 1.40 mg/dL above high threshold See Below [facility] Work Phone: Comment on above: Reference Range: 0.5 0 - 1.30 Glucose [Mass/Vol] 94 mg/dL 74 - 99 [facility] Work Phone: Natriuretic peptide B (Bld) [Mass/Vol] 144 pg/mL above high threshold 0 - 99 [facility] Work Phone: Comment on above: . <100 pg/mL - Heart failure [id number] pg/mL - Intermediate probability of acute heart. failure exacerbation. Correlate with clinical. context and patient history. >=300 pg/mL - Heart Failure likely. Correlate with clinical. context and patient history. Biotin interference may cause falsely decreased results. Patients taking a Biotin dose of up to 5 mg/day should refrain from taking Biotin for 24 hours before sample collection. Providers may contact their local laboratory for further information. Potassium [Moles/Vol] 4.2 mmol/L 3.5 - 5.3 [facility] Work Phone: Sodium [Moles/Vol] 143 mmol/L 136 - 145 [facility] Work Phone: Urea nitrogen [Mass/Vol] 19 mg/dL 6 - 23 [facility] Work Phone: No Panel Informationon 11-27 56 {mL/min/1.73m2} Abnormal >90 [facility] Work Phone: Comment on above: CALCULATIONS OF LILI MATED GFR ARE PERFORMED USING THE 2020 CKD-EPI STUDY REFIT EQUATION WITHOUT THE RACE VARIABLE FOR THE IDMS-TRACEABLE CREATININE METHODS.https://jasn.asnjournals.org/content/early/ ASN.2758544165 Tobacco Screening.on 022 Adult depression screening assessment No [facility] [facility] Work Phone: Fall risk assessment a) No falls within the last year [facility] [facility] Work Phone: Tobacco use status [facility] b) No M [facility] [facility] Work Phone: Blood Pressure Cuff Sizeon 0 11-14-2021 Tobacco use status [facility] b) No M [facility] [address] [place] Work Phone: Blood Pressure Cuff Size Adult [facility] [address] [place] Work Phone: Office Visit (Cardiology)on 11-14-2021 Follow-up visit Diagnoses/Problems Assessed Acute coronary syndrome (411.1) (I24.9) Elevated brain natriuretic peptide (BNP) level (790.99) (R79.89) 11/01/2021 = 129 ... 09/11/2021 = 155 ... 06/03/2021 = 112 Elevated troponin (790.6) (R77.8) 06/04/2021 = 0.49 ? 06/03/2021 = 0.66 AND 0.60 [place] coronary artery calcium score between 200 and 399 (793.2) (R93.1) [06/05/2021] = 225.3 (LM 19.2, LAD 168, LCx 38.1, RCA 0) Breathing difficulty (786.09) (R06.89) CAD (coronary artery disease) (414.00) (I25.10) SOB (shortness of breath) on exertion (786.05) (R06.02) Hypercholesterolemia (272.0) (E78.00) Tobacco abuse (305.1) (Z72.0) Orders Breathing difficulty, CAD (coronary artery disease) Basic Metabolic Panel; Status:Active; Requested for:[id number]; Breathing difficulty, CAD (coronary artery disease), Hypertension Renew: Isosorbide Mononitrate ER 60 MG Oral Tablet Extended Release 24 Hour; Take 1 tablet daily Breathing difficulty, SOB (shortness of breath) on exertion Brain Natriuretic Peptide BNP; Status:Active; Requested for:[id number]; CAD (coronary artery disease) Renew: Furosemide 40 MG Oral Tablet; Take 1 tablet daily SOB (shortness of breath) on exertion In Lab PSG Sleep Study, 6 years of age and greater; Status:Hold For - Scheduling; Requested for:[id number]; Non-ambulatory,wheelchai r,other physical limitations? : No Ensuresis(prep bed), Technology dependent(Gtube/trach)? : No O2 requirements during the study? : No PSG PRECAUTIONS: Please select any applicable precautions : Asthma, Significant breathing problems, COPD, Sickle cell disease COMORBIDITIES : None PSG INDICATIONS : Evaluation/treatment of Obstructive Sleep Apnea [G47.33] Study Type : Diagnostic Patient Instructions Take Lasix 40 mg daily Increase isosorbide mononitrate to 60 mg daily Check BMP and BNP levels in 2 weeks Sleep study as ordered Follow-up with pulmonology for abnormal PFTs Continue a heart healthy diet and exercise within reason Follow-up in 3 months Chief Complaint Shortness of breath and review of stress test results Adult Risk ScreeningThere are no spiritual/cultural practices/values/needs that are important to know Initial Fall Risk Screening: FREDDIE has not fallen in the last 6 months. Pain Scale: On a scale of 0 to 10, the patient rates the pain at 0. Living Will. Living Will: No living will on file. Healthcare POA: No healthcare proxy on file. History of Present Illness 11/14/2021: Office visit This is a 61-year-old male past med history [...] room air. His weight is 223 pounds. Active Problems Other Problems Benign prostatic hyperplasia with urinary obstruction and other lower urinary tract symptoms (600.21) (N40.1,N13.8) Bradycardia (427.89) (R00.1) Breathing difficulty (786.09) (R06.89) CAD (coronary artery disease) (414.00) (I25.10) Change in voice (784.49) (R49.9) Fungal infection (117.9) (B49) H/O right coronary artery stent placement (V45.82) (Z95.5) Hoarseness of voice (784.42) (R49.0) Hypertension (401.9) (I10) Laryngeal spasm (478.75) (J38.5) Laryngopharyngeal reflux (LPR) (478.79) (K21.9) Nocturia (788.43) (R35.1) Tobacco abuse (305.1) (Z72.0) Tobacco abuse counseling (V65.42,305.1) (Z71.6) Urge incontinence of urine (788.31) (N39.41) Urinary frequency (788.41) (R35.0) Weak urinary stream (788.62) (R39.12) Surgical History Problems History of Cardiac catheterization [06/06/2021, Dr. Brenna Pro]: Severe 1-vessel obstructive CAD in right-dominant circulation. Culprit mid RCA 95% thrombotic stenosis. Moderate non-hemodynamically significant proximal LAD 40-50% stenosis (RFR 0.94). Elevated left-sided filling pressure (LVEDP 25 mmHg end-expiration). No gradient on pull-back to suggest aortic stenosis. RFR of proximal LAD lesion 0.94 (<0.90 benefit from revascularization). History of Cardiac catheterization with stent placement [06/06/2021, Dr. Brenna Pro]: RCA stented with a 3.5 x 26 mm Resolute Kelby stent History of Knee arthroscopy History of Knee surgery History of Thyroidectomy Past Medica (more content not included)... Normal [facility] Bilirubin, Serum Direct - [facility] 11-01-2021 Bilirubin.direct [Mass/Vol] 0.2 mg/dL 0.0 - 0.3 [facility] 6 Work Phone: Complete Blood Count + Diffe [facility] 11-01-2021 Basophils/100 WBC (Bld) 0.4 % 0.0 - 2.0 M [facility] 6 Work Phone: Erythrocyte distribution width (RBC) [Ratio] 13.4 % See Below [facility] 6 Work Phone: Comment on above: Reference Range: 11. 5 - 14.5 Hematocrit (Bld) [Volume fraction] 43.0 % See Below [facility] 6 Work Phone: Comment on above: Reference Range: 41. 0 - 52.0 Hemoglobin (Bld) [Mass/Vol] 14.3 g/dL See Below [facility] 6 Work Phone: Comment on above: Reference Range: 13. 5 - 17.5 Lymphocytes/100 WBC (Bld) 22.3 % See Below -Pulmonar y [facility]-[place] [facility] Work Phone: Comment on above: Reference Range: 13. 0 - 44.0 MCHC (RBC) [Mass/Vol] 33.3 g/dL See Below MP- [facility] [facility] Work Phone: Comment on above: Reference Range: 32. 0 - 36.0 MCV (RBC) [Entitic vol] 95 fL 80 - 100 M [facility] [facility] Work Phone: Monocytes/100 WBC (Bld) 8.6 % 2.0 - 10.0 M -[facility] [facility] Work Phone: Neutrophils/100 WBC (Bld) 67.3 % See Below -[facility] [facility] Work Phone: Comment on above: Reference Range: 40. 0 - 80.0 Platelets (Bld) [#/Vol] 155 10*3/uL 150 - 450 -[facility] [facility] Work Phone: RBC (Bld) [#/Vol] 4.51 {x10E12/L} See Below -[facility] [facility] Work Phone: Comment on above: Reference Range: 4.5 0 - 5.90 WBC (Bld) [#/Vol] 7.1 10*3/uL 4.4 - 11.3 [facility] [facility] Work Phone: Complete Blood Count + Differential 0.03 {x10E9/L} See Below [facility] [facility] Work Phone: Comment on above: Reference Range: 0.0 0 - 0.10 Complete Blood Count + Differential 0.07 {x10E9/L} See Below [facility] [facility] Work Phone: Comment on above: Reference Range: 0.0 0 - 0.70 Complete Blood Count + Differential 0.61 {x10E9/L} See Below [facility] [facility] Work Phone: Comment on above: Reference Range: 0.1 0 - 1.00 Complete Blood Count + Differential 1.58 {x10E9/L} See Below [facility] [facility] Work Phone: Comment on above: Reference Range: 1.2 0 - 4.80 Complete Blood Count + Differential 4.75 {x10E9/L} See Below [facility] [facility] Work Phone: Comment on above: Reference Range: 1.2 0 - 7.70 Complete Blood Count + Differential 1.0 % 0.0 - 6.0 [facility] [facility] Work Phone: Complete Blood Count + Differential 0.4 % 0.0 - 0.9 [facility] [facility] Work Phone: Comment on above: Immature Granulocyte Count (IG) includes promyelocytes, myelocytes and metamyelocytes but does not include bands. Percent differential counts (%) should be interpreted in the context of the absolute cell counts (cells/L). Ferritin, Serumon 11-01-2021 Ferritin [Mass/Vol] 187 ug/L 20 - 300 [facility] [facility] Work Phone: Gamma Glutamyl Transferase, Serumon 11-01-2021 Gamma glutamyl transferase [Catalytic activity/Vol] 27 U/L 5 - 64 [facility] [facility] Work Phone: Immunoglobulin E Level, Seru mon 11-01-2021 IgE Qn 373 {IU/mL} above high threshold 0 - 214 [facility] [facility] Work Phone: IgE Qn 386 {IU/mL} above high threshold 0 - 214 [facility] [facility] Work Phone: Laboratory - Chemistry and C hemistry - challengeon 11-01-2021 Natriuretic peptide B (Bld) [Mass/Vol] 129 pg/mL above high threshold 0 - 99 [place] [address] Work Phone: Comment on above: . <100 pg/mL - Heart failure [id number] pg/mL - Intermediate probability of acute heart. failure exacerbation. Correlate with clinical. context and patient history. >=300 pg/mL - Heart Failure likely. Correlate with clinical. context and patient history. Biotin interference may cause falsely decreased results. Patients taking a Biotin dose of up to 5 mg/day should refrain from taking Biotin for 24 hours before sample collection. Providers may contact their local laboratory for further information. Albumin BCP dye [Mass/Vol] 4.4 g/dL 3.4 - 5.0 [place] [address] Work Phone: ALP [Catalytic activity/Vol] 67 U/L 33 - 136 [facility] 6 Work Phone: ALT With P-5'-P [Catalytic activity/Vol] 16 U/L 10 - 52 [facility] 6 Work Phone: Comment on above: Patients treated wit h Sulfasalazine may generate falsely decreased results for ALT. Anion gap [Moles/Vol] 11 mmol/L 10 - 20 [place] [address] Work Phone: AST With P-5'-P [Catalytic activity/Vol] 14 U/L 9 - 39 [place] [address] Work Phone: Bilirubin [Mass/Vol] 0.9 mg/dL 0.0 - 1.2 [place] [address] Work Phone: Calcium [Mass/Vol] 9.6 mg/dL 8.6 - 10.3 [facility] 6 Work Phone: Chloride [Moles/Vol] 105 mmol/L 98 - 107 MP-[facility]ar y [facility] [facility] Work Phone: [phone] CO2 [Moles/Vol] 29 mmol/L 21 - 32 [facility] [facility] Work Phone: [phone] Creatinine [Mass/Vol] 1.23 mg/dL See Below MP- Pulmonar y [facility] [facility] Work Phone: Comment on above: Reference Range: 0.5 0 - 1.30 Glucose [Mass/Vol] 78 mg/dL 74 - 99 [facility] [facility] Work Phone: [phone] Iron [Mass/Vol] 76 ug/dL 35 - 150 [facility] [facility] Work Phone: [phone] Iron binding capacity [Mass/Vol] 347 ug/dL 240 - 445 [facility] [facility] Work Phone: [phone] Potassium [Moles/Vol] 4.4 mmol/L 3.5 - 5.3 MP- [facility]ar [facility] [facility] Work Phone: Protein [Mass/Vol] 7.2 g/dL 6.4 - 8.2 [facility] [facility] Work Phone: Sodium [Moles/Vol] 141 mmol/L 136 - 145 [facility] [facility] Work Phone: Urea nitrogen [Mass/Vol] 15 mg/dL 6 - 23 [facility] [facility] Work Phone: No Panel Informationon 11-01 22 % below low threshold 25 - 45 [facility] [facility] Work Phone: 66 {mL/min/1.73m2} >90 [facility] [facility] Work Phone: Comment on above: CALCULATIONS OF LILI MATED GFR ARE PERFORMED USING THE 2020 CKD-EPI STUDY REFIT EQUATION WITHOUT THE RACE VARIABLE FOR THE IDMS-TRACEABLE CREATININE METHODS.[email or web address].asnjournals.org/content// ASN.[email or web address] Reticulocyte Counton 022 Reticulocyte Count 36 pg 28 - 38 -[facility] [facility] Work Phone: Reticulocyte Count 13.8 % 0.0 - 16.0 -[facility] [facility] Work Phone: Reticulocyte Count 0.074 {x10E12/L} See Below [facility] [facility] Work Phone: Comment on above: Reference Range: 0.0 22 - 0.118 Reticulocyte Count 1.6 % 0.5 - 2.0 -[facility] [facility] Work Phone: CARDIAC STRESS/REST INJECTIO Non 10-26-2021 CARDIAC STRESS/REST INJECTION Patient Name: FREDDIE COLE STUDY: CARDIAC STRESS/REST INJECTION; PART 2 STRESS OR REST (NO CHARGE); CARDIAC STRESS/REST (MYOCARDIAL PERFUSION/MIBI); 10/26/2021 10:29 am INDICATION: SIGNIFICANT SHORTNESS OF BREATH R06.89: Breathing difficulty I25.10: CAD (coronary artery disease). COMPARISON: None. ACCESSION NUMBER(S): [id number]; [id number]; [id number] ORDERING CLINICIAN: JAYNE MENDENHALL TECHNIQUE: DIVISION OF NUCLEAR MEDICINE PHARMACOLOGIC STRESS MYOCARDIAL PERFUSION SCAN, ONE DAY PROTOCOL The patient received an intravenous dose of 12 mCi of Tc-99m Myoview and resting emission tomographic (SPECT) images of the myocardium were acquired. The patient then received an intravenous infusion of 0.4 mg regadenoson (Lexiscan) followed by an additional dose of 35 mCi of Tc-99m Myoview. Stress phase SPECT images of the myocardium were then acquired. These included ECG-gated images to assess and quantify ventricular function. FINDINGS: Stress and rest images both demonstrate a normal distribution of perfusion throughout all LV segments with no sign of ischemia. ECG-gated images demonstrate normal LV size and myocardial contractility with an LV ejection fraction of 65 % (normal above 45 percent). IMPRESSION: 1. Normal stress myocardial perfusion imaging in response to pharmacologic stress. 2. Well-maintained left ventricular function. 65% Electronically signed by: DO Ester MONTOYA [facility] No Panel Informationon 10-26 Normal [facility] [address] [place] Work Phone: Please click on the link to view the study images Normal [facility] Work Phone: [facility] [address] [place] Work Phone: Syngo Nuclear Orderon 2021 Syngo Nuclear Order [facility] , [address] [facility] [address] and Nuclear Pharmacologic Stress Test Patient Name: FREDDIE COLE Ordering Physician: Jayne Godinez Study Date: 10/26/2021 Reading Physician: [id number] Nevin Rogers MD MRN/PID: [id number] Supervising [id number] Jaime Boateng MD Physician: Accession/Order#: [id number] Referring Physician: [id number] JAYNE GODINEZ Date of : 1960 PCP: Gender: M Fellow: Admit Date: 10/26/2021 Fellow: Admission Status: Outpatient Door Fitter: Jazlyn Hayes Height: 175.26 cm Nurse: Lana Diego RN Weight: 100.70 kg Construction Supervisor/Carpenter: NA BSA: 2.16 m2 Technologist: BMI: 32.78 kg/m2 Additional Staff: Age: 61 years cc report to: Patient Location: [facility] report to: Jayne Godinez Radiology Study Type: Syngo Nuclear Order Diagnosis/ICD: I25.10-Atherosclerotic heart disease; R06.89-Other abnormalities of breathing Indication: Dyspnea, Hypertension and hyperlipidemia Procedure/CPT: Stress Test Interpretation-[id number]; Stress Test Supervision-[id number] Falls Risk: Study Details: Correct procedure and correct patient verified verbally. Patient History: . 61y/o male presents to be evaluated for CAD and shortness of breath. PMH: HTN, hyperlipidemia, stent RCA 05/2021, DVT, Graves disease, diastolic CHF, laryngeal spasms, quit smoking 04/2021, denies family hx of CAD. Allergies: Gemtesa. Medications: The patient's prescribed medication is Isosorbide [place] (last dose 10/25), ASA, Atorvastatin, Plavix, Ezetimibe, Losartan, albuterol, Lasix, Metoprolol Succinate (last dose 10/25), Omeprazole, Rosuvastatin, Synthroid, Tamsulosin. The patient took medications as prescribed. Patient Performance: Patient received a total of 0.4 mg of Regadenoson at 9:33:53 AM. Patient received a total of 35.2 mCi of Myoview at 9:34:30 AM. The patient exercised during infusion. The peak heart rate achieved was 91 bpm, which was 58 % of the age predicted target heart rate of 157 bpm. The resting blood pressure was 155/106 mmHg with a heart rate of 63 bpm. The standing blood pressure was 141/96 mmHg with a heart rate of 67 bpm. The patient developed sx typical of Lexiscan during the stress exam. The symptoms resolved with rest. The blood pressure response was normal. The test was terminated due to: per Lexiscan protocol. Patient has met the discharge criteria and is discharged to home. Baseline ECG: Resting ECG showed normal sinus rhythm with occasional premature ventricular contractions. First injection 12.0Tc Myoview given at 0820 by Jt Womack. Stress ECG: Stress ECG showed normal sinus rhythm, with occ PVCs, couplet. Stress Stage Data: + +--+-- ----+-------+ ---+ HR Sys BP Stringer BP Comments + +--+-- ----+-------+ ---+ Baseline Resting 63 155 106 + +--+-- ----+-------+ ---+ Baseline Standing 67 141 96 + +--+-- ----+-------+ ---+ - No baseline sx + +--+-- ----+-------+ ---+ Stage I 90 130 85 SOB, denies CP + +--+-- ----+-------+ ---+ Recovery ECG: Recovery ECG showed normal sinus rhythm, with frequent premature ventricular contractions. The heart rate recovery was normal. + +--+------+- ------+ + HR Sys BP Stringer BP Comments + +--+------+- ------+ + Recovery I 87 143 97 sx resolving + +--+------+- ------+ + Recovery II 76 156 103 baseline + +--+------+- ------+ + Summary: 1. No ECG changes from baseline. 2. No clinical or electrocardiographic evidence for ischemia at a maximal infusion. 3. Nuclear image results are reported separately. [id number] Nevin Rogers MD Electronically signed on 10/27/2021 at 2:20:11 PM Final Normal [facility] Blood Pressure Cuff Sizeon 0 10-11-2021 Adult depression screening assessment No [facility] [address] [place] Work Phone: Fall risk assessment a) No falls within the last year [facility] [address] [place] Work Phone: Tobacco use status CPHS b) No M P[facility] [address] [place] Work Phone: Blood Pressure Cuff Size Adult [facility] [address] [place] Work Phone: Office Visit (Cardiology)on 10-11-2021 Follow-up visit Diagnoses/Problems Assessed Breathing difficulty (786.09) (R06.89) CAD (coronary artery disease) (414.00) (I25.10) Hypertension (401.9) (I10) H/O right coronary artery stent placement (V45.82) (Z95.5) Orders Breathing difficulty, CAD (coronary artery disease) NM Cardiac Stress/Rest Nuclear Med Order; Status:Hold For - Scheduling; Requested for:11Oct2021; Radiologist to Determine Optimal Study : Y What are the patient's signs and symptoms? : SIGNIFICANT SHORTNESS OF BREATH Breathing difficulty, CAD (coronary artery disease), Hypertension Start: Isosorbide Mononitrate ER 30 MG Oral Tablet Extended Release 24 Hour; Take 1 tablet by mouth daily Adult Risk Screening Initial Fall Risk Screening: FREDDIE has not fallen in the last 6 months. His fall did not result in injury. FREDDIE does not have a fear of falling. He does not need assistance with sitting, standing or walking. Does not need assistance walking in his home. He does not need assistance in an unfamiliar setting. The patient is not using an assistive device. Living Will. Living Will: Living will on file. Healthcare POA: Health care proxy on file. Declaration of Mental Health Treatment: Declaration of mental health treatment on file. Tobacco Screening: FREDDIE does not use tobacco. Has not used tobacco in the past 6 months. Has not tried to quit or thought about quitting tobacco. Domestic Violence Screen: Does not feel threatened or abused physically, emotionally or sexually. Do you feel UNSAFE? The patient feels safe in the home. Depression/Suicide Screening: During the past 2 weeks, the patient has not felt down, depressed or hopeless. During the past 2 weeks, the patient has not felt little interest or pleasure in doing things. He does not have a risk of suicide. He has not had thoughts of harming others. History of Present Illness 10/11/2021: Mr Cole is here for a second acute visit for complaints of feeling fatigues, weak and very short of breath. This is progressively getting worse since his cardiac catheterization. His weight is up 4 lbs since I saw him last. His BP and HR are well controlled and his pulse ox is 95% on room air. 09/12/2021: Mr Cole is here for an acute visit for complaints of feeling weak, lethargic and very short of breath he denies any complaints of chest pain, dizziness, syncope or lower extremity edema, He did not under go cardiac rehab as prescribed. He is not active and feels he has no energy to do anything since under going his PCI. June 23, 2021: Mr Cole is a 66 year old male with PMH of laryngeal spasms, Graves disease S/P thyroidectomy, elevated IgE levels, nicotine dependence, here following hospitalization for acute on chronic diastolic heart failure and coronary artery disease. To work up the shortness of breath and confirm/ rule out CHF, he underwent echo. Echo showed normal LV systolic function with 55-60% EF and no LV hypertrophy. Doppler showed impaired relaxation pattern of LV diastolic filling. A CT coronary calcium screen due to the elevated troponins showed near complete occlusion of the RCA in the midportion, nonobstructive CAD involving the LAD and LCX causing less than 50% stenosis, and total calcium score 225. Based on these findings, patient was taken to cardiac catheterization. Results of his left heart cath showed moderate 40-50% proximal LAD stenosis, LVEDP 25 mmHg end-expiration, 95% thrombotic appearing mid RCA stenosis (culprit for NSTE-ACS presentation). A drug eluting stent was placed in the RCA. Given the LVEDP of 25, he was further diuresed in the hospital and sent home with PRN Lasix for weight gain with daily weight checks. He was started on aspirin, high intensity atorvastatin, clopidogrel, ezetimibe, and losartan. He will follow up with his PCP, Cardiology, and specialists previously seen for layngeal spasms. He is complaining of severe muscle pains since his cardiac catheterization that is preventing him from walking. The pain is sos severe that he is not able to sleep at night. (He was started on atorvastatin 80mg following his cath). Active Problems Problems Benign prostatic hyperplasia with urinary obstruction and other lower urinary tract symptoms (600.21) (N40.1,N13.8) Bradycardia (427.89) (R00.1) Breathing difficulty (786.09) (R06.89) CAD (coronary artery disease) (414.00) (I25.10) Change in voice (784.49) (R49.9) Fungal infection (117.9) (B49) H/O right coronary artery stent placement (V45.82) (Z95.5) Hoarseness of voice (784.42) (R49.0) Hypertension (401.9) (I10) Laryngeal spasm (478.75) (J38.5) Laryngopharyngeal reflux (LPR) (478.79) (K21.9) Nocturia (788.43) (R35.1) Tobacco abuse (305.1) (Z72.0) Tobacco abuse counseling (V65.42,305.1) (Z71.6) Urge incontinence of urine (788.31) (N39.41) Urinary frequency (788.41) (R35.0) Weak urinary stream (788.62) (R39.12) Surgical History Problems History of Knee arthroscopy History of Kn (more content not included)... Normal [facility] Complete Blood Count + Diffe rentialon 10-04-2021 Basophils/100 WBC (Bld) 0.1 % 0.0 - 2.0 M P[facility] [address] [place] Work Phone: Erythrocyte distribution width (RBC) [Ratio] 13.3 % See Below [facility] [address] [place] Work Phone: Comment on above: Reference Range: 11. 5 - 14.5 Hematocrit (Bld) [Volume fraction] 44.9 % See Below [facility] [address] [place] Work Phone: Comment on above: Reference Range: 41. 0 - 52.0 Hemoglobin (Bld) [Mass/Vol] 14.4 g/dL See Below [facility] [address] [place] Work Phone: Comment on above: Reference Range: 13. 5 - 17.5 Lymphocytes/100 WBC (Bld) 18.1 % See Below [facility] [address] [place] Work Phone: Comment on above: Reference Range: 13. 0 - 44.0 MCHC (RBC) [Mass/Vol] 32.1 g/dL See Below MP- [facility] [address] [place] Work Phone: Comment on above: Reference Range: 32. 0 - 36.0 MCV (RBC) [Entitic vol] 96 fL 80 - 100 M P[facility] [address] [place] Work Phone: Monocytes/100 WBC (Bld) 7.6 % 2.0 - 10.0 M P[facility] [address] [place] Work Phone: Neutrophils/100 WBC (Bld) 73.3 % See Below [facility] [address] [place] Work Phone: Comment on above: Reference Range: 40. 0 - 80.0 Platelets (Bld) [#/Vol] 151 10*3/uL 150 - 450 [facility] [address] [place] Work Phone: RBC (Bld) [#/Vol] 4.69 {x10E12/L} See Below [facility] [address] [place] Work Phone: Comment on above: Reference Range: 4.5 0 - 5.90 WBC (Bld) [#/Vol] 7.8 10*3/uL 4.4 - 11.3 MP-Car diolo gy-[place] [address] [place] Work Phone: Complete Blood Count + Differential 0.01 {x10E9/L} See Below [facility] [address] [place] Work Phone: Comment on above: Reference Range: 0.0 0 - 0.10 Complete Blood Count + Differential 0.06 {x10E9/L} See Below [facility] [address] [place] Work Phone: Comment on above: Reference Range: 0.0 0 - 0.70 Complete Blood Count + Differential 0.59 {x10E9/L} See Below [facility] [address] [place] Work Phone: Comment on above: Reference Range: 0.1 0 - 1.00 Complete Blood Count + Differential 1.41 {x10E9/L} See Below [facility] [address] [place] Work Phone: Comment on above: Reference Range: 1.2 0 - 4.80 Complete Blood Count + Differential 5.71 {x10E9/L} See Below [facility] [address] [place] Work Phone: Comment on above: Reference Range: 1.2 0 - 7.70 Percent differential counts (%) should be interpreted in the context of the absolute cell counts (cells/L). Complete Blood Count + Differential 0.8 % 0.0 - 6.0 [facility] [address] [place] Work Phone: Complete Blood Count + Differential 0.1 % 0.0 - 0.9 [facility] [address] [place] Work Phone: Comment on above: Immature Granulocyte Count (IG) includes promyelocytes, myelocytes and metamyelocytes but does not include bands. Percent differential counts (%) should be interpreted in the context of the absolute cell counts (cells/L). Ferritin, Serumon 10-04-2021 Ferritin [Mass/Vol] 213 ug/L 20 - 300 MP-Ca rdiolo [facility] [address] [place] Work Phone: Blood Pressure Cuff Sizeon 0 09-11-2021 Blood Pressure Cuff Size Adult [facility] [address] [place] Work Phone: Laboratory - Chemistry and C hemistry - challengeon 09-11-2021 Natriuretic peptide B (Bld) [Mass/Vol] 155 pg/mL above high threshold 0 - 99 [facility] Work Phone: Comment on above: . <100 pg/mL - Heart failure [id number] pg/mL - Intermediate probability of acute heart. failure exacerbation. Correlate with clinical. context and patient history. >=300 pg/mL - Heart Failure likely. Correlate with clinical. context and patient history. Biotin interference may cause falsely decreased results. Patients taking a Biotin dose of up to 5 mg/day should refrain from taking Biotin for 24 hours before sample collection. Providers may contact their local laboratory for further information. No Panel Informationon 09-11 [email or web address]: [id number]& Date=11-09-2021&Time=14% 3a46%3a01%3a00&TestType= ECG&Site=1&OutputType=PD F&Ext=PDF [facility] Work Phone: Sinus rhythm with Premature ventricular complexes [facility] Work Phone: Borderline Abnormal MP-Ca rdiolo gy-[place] Work Phone: [phone] [facility] Work Phone: [phone] [facility] Work Phone: [phone] [facility] Work Phone: 147 1 [facility] Work Phone: [phone] [facility] Work Phone: 11 1 [facility] Work Phone: 22 1 [facility] Work Phone: 6 1 [facility] Work Phone: 42 1 [facility] Work Phone: [phone] [facility] Work Phone: [phone] [facility] Work Phone: 84 1 [facility] Work Phone: 134 1 [facility] Work Phone: 71 [phone] [facility] Work Phone: TSH - Thyroid Stimulating Ho Yanick napoleson 09-11-2021 TSH Qn 1.10 m[IU]/L See Below [facility] Work Phone: Comment on above: Reference Range: 0.4 4 - 3.98 TSH testing is performed using different testing methodology at [facility] than at other [facility]. Direct result comparisons should only be made within the same method. Complete Blood Count + Diffe rentialon 09-06-2021 Basophils/100 WBC (Bld) 0.3 % 0.0 - 2.0 M P-Cardiol[facility] [address] [place] Work Phone: Erythrocyte distribution width (RBC) [Ratio] 14.4 % See Below [facility] [address] [place] Work Phone: Comment on above: Reference Range: 11. 5 - 14.5 Hematocrit (Bld) [Volume fraction] 43.7 % See Below [facility] [address] [place] Work Phone: Comment on above: Reference Range: 41. 0 - 52.0 Hemoglobin (Bld) [Mass/Vol] 14.4 g/dL See Below [facility] [address] [place] Work Phone: Comment on above: Reference Range: 13. 5 - 17.5 Lymphocytes/100 WBC (Bld) 26.2 % See Below [facility] [address] [place] Work Phone: Comment on above: Reference Range: 13. 0 - 44.0 MCHC (RBC) [Mass/Vol] 33.0 g/dL See Below MP- [facility] [address] [place] Work Phone: Comment on above: Reference Range: 32. 0 - 36.0 MCV (RBC) [Entitic vol] 94 fL 80 - 100 M P-Cardiol[facility] [address] [place] Work Phone: Monocytes/100 WBC (Bld) 9.3 % 2.0 - 10.0 M P-Cardiol[facility] [address] [place] Work Phone: Neutrophils/100 WBC (Bld) 63.4 % See Below [facility] [address] [place] Work Phone: Comment on above: Reference Range: 40. 0 - 80.0 Platelets (Bld) [#/Vol] 163 10*3/uL 150 - 450 [facility] [address] [place] Work Phone: RBC (Bld) [#/Vol] 4.65 {x10E12/L} See Below MP -[facility] [address] [place] Work Phone: Comment on above: Reference Range: 4.5 0 - 5.90 WBC (Bld) [#/Vol] 7.5 10*3/uL 4.4 - 11.3 MP-Car diolo gy-[place] [address] [place] Work Phone: Complete Blood Count + Differential 0.02 {x10E9/L} See Below [facility] [address] [place] Work Phone: Comment on above: Reference Range: 0.0 0 - 0.10 Complete Blood Count + Differential 0.06 {x10E9/L} See Below [facility] [address] [place] Work Phone: Comment on above: Reference Range: 0.0 0 - 0.70 Complete Blood Count + Differential 0.70 {x10E9/L} See Below [facility] [address] [place] Work Phone: Comment on above: Reference Range: 0.1 0 - 1.00 Complete Blood Count + Differential 1.97 {x10E9/L} See Below [facility] [address] [place] Work Phone: Comment on above: Reference Range: 1.2 0 - 4.80 Complete Blood Count + Differential 4.76 {x10E9/L} See Below [facility] [address] [place] Work Phone: Comment on above: Reference Range: 1.2 0 - 7.70 Percent differential counts (%) should be interpreted in the context of the absolute cell counts (cells/L). Complete Blood Count + Differential 0.8 % 0.0 - 6.0 [facility] [address] [place] Work Phone: Ferritin, Serumon 09-06-2021 Ferritin [Mass/Vol] 236 ug/L 20 - 300 MP-Ca rdiolo [facility] [address] [place] Work Phone: Laboratory - Chemistry and C hemistry - challengeon 09-06-2021 Iron [Mass/Vol] 126 ug/dL 35 - 150 MP-Cardio lo gy-[place] [address] [place] Work Phone: Iron binding capacity [Mass/Vol] 368 ug/dL 240 - 445 [facility] [address] [place] Work Phone: No Panel Informationon 09-06 34 % 25 - 45 [facility] [address] [place] Work Phone: Complete Blood Count + Diffe rentialon 07-12-2021 Basophils/100 WBC (Bld) 0.3 % 0.0 - 2.0 M G-[facility]tol[facility] [employer] [facility] [place] Work Phone: Erythrocyte distribution width (RBC) [Ratio] 13.0 % See Below [employer]-[facility]tol[facility] [employer] [facility] Work Phone: Comment on above: Reference Range: 11. 5 - 14.5 Hematocrit (Bld) [Volume fraction] 40.6 % below low threshold See Below MG-Otolaryn gology[facility] [facility] [place] Work Phone: Comment on above: Reference Range: 41. 0 - 52.0 Hemoglobin (Bld) [Mass/Vol] 13.3 g/dL below low threshold See Below MG-Otolaryn gology[place] [facility] [place] Work Phone: Comment on above: Reference Range: 13. 5 - 17.5 Lymphocytes/100 WBC (Bld) 25.6 % See Below MG-[facility] [employer] [employer] [facility] [place] Work Phone: Comment on above: Reference Range: 13. 0 - 44.0 MCHC (RBC) [Mass/Vol] 32.8 g/dL See Below MG- Ot[place] gology[facility] [facility] [place] Work Phone: Comment on above: Reference Range: 32. 0 - 36.0 MCV (RBC) [Entitic vol] 95 fL 80 - 100 M G-[facility] [facility] [place] Work Phone: Monocytes/100 WBC (Bld) 8.9 % 2.0 - 10.0 M G-[place] [facility] [facility] [place] Work Phone: Neutrophils/100 WBC (Bld) 63.9 % See Below MG-[facility] [facility] [place] Work Phone: Comment on above: Reference Range: 40. 0 - 80.0 Platelets (Bld) [#/Vol] 153 10*3/uL 150 - 450 MG-[facility] [facility] [place] Work Phone: RBC (Bld) [#/Vol] 4.28 {x10E12/L} below low threshold See Below MG-[facility] [facility] [place] Work Phone: Comment on above: Reference Range: 4.5 0 - 5.90 WBC (Bld) [#/Vol] 6.3 10*3/uL 4.4 - 11.3 MG-Mejia laryn arleneogy[facility] [facility] [place] Work Phone: Complete Blood Count + Differential 0.02 {x10E9/L} See Below MG-[facility] [facility] [place] Work Phone: Comment on above: Reference Range: 0.0 0 - 0.10 Complete Blood Count + Differential 0.08 {x10E9/L} See Below MG-[facility] [facility] [place] Work Phone: Comment on above: Reference Range: 0.0 0 - 0.70 Complete Blood Count + Differential 0.56 {x10E9/L} See Below MG-[facility] [employer] [employer] [facility] [place] Work Phone: Comment on above: Reference Range: 0.1 0 - 1.00 Complete Blood Count + Differential 1.60 {x10E9/L} See Below MG-[facility] [facility] [place] Work Phone: Comment on above: Reference Range: 1.2 0 - 4.80 Complete Blood Count + Differential 4.00 {x10E9/L} See Below MG-[facility] [employer] [facility] [place] Work Phone: Comment on above: Reference Range: 1.2 0 - 7.70 Percent differential counts (%) should be interpreted in the context of the absolute cell counts (cells/L). Complete Blood Count + Differential 1.3 % 0.0 - 6.0 MG-[facility]tol[facility] [employer] [facility] [place] Work Phone: Blood Pressure Cuff Sizeon 0 06-23-2021 Tobacco use status CPHS b) No M G[facility] [facility] Work Phone: Blood Pressure Cuff Size Adult [facility] [facility] Work Phone: Tobacco Screening.on 022 Fall risk assessment a) No falls within the last year [facility] [facility] Work Phone: Tobacco use status CPHS b) No M [facility] [facility] Work Phone: Complete Blood Count + Diffe rentialon 06-08-2021 Basophils/100 WBC (Bld) 0.5 % 0.0 - 2.0 M G-Medicine -[facility] [employer] Work Phone: Erythrocyte distribution width (RBC) [Ratio] 12.4 % See Below MG-Medicine -[facility] Work Phone: Comment on above: Reference Range: 11. 5 - 14.5 Hematocrit (Bld) [Volume fraction] 42.6 % See Below OvonyxPierce Beníte[facility] Work Phone: Comment on above: Reference Range: 41. 0 - 52.0 Hemoglobin (Bld) [Mass/Vol] 13.9 g/dL See Below Dominique Benítez Work Phone: Comment on above: Reference Range: 13. 5 - 17.5 Lymphocytes/100 WBC (Bld) 18.7 % See Below Pierce Benítez Work Phone: Comment on above: Reference Range: 13. 0 - 44.0 MCHC (RBC) [Mass/Vol] 32.6 g/dL See Below ISRA Benítez Work Phone: Comment on above: Reference Range: 32. 0 - 36.0 MCV (RBC) [Entitic vol] 98 fL 80 - 100 M Gagan Benítez Work Phone: Monocytes/100 WBC (Bld) 9.6 % 2.0 - 10.0 M AkshatPierce Benítez Work Phone: [phone] Neutrophils/100 WBC (Bld) 69.0 % See Below [facility]ce Ben[facility]te[facility] Work Phone: Comment on above: Reference Range: 40. 0 - 80.0 Platelets (Bld) [#/Vol] 164 10*3/uL 150 - 450 Dominique Benítez Work Phone: RBC (Bld) [#/Vol] 4.35 {x10E12/L} below low threshold See Below Dominique Benítez Work Phone: Comment on above: Reference Range: 4.5 0 - 5.90 WBC (Bld) [#/Vol] 7.3 10*3/uL 4.4 - 11.3 -Med icine Sharon Benítez Work Phone: Complete Blood Count + Differential 0.04 {x10E9/L} See Below Dominique Benítez Work Phone: Comment on above: Reference Range: 0.0 0 - 0.10 Complete Blood Count + Differential 0.13 {x10E9/L} See Below [facility] Work Phone: Comment on above: Reference Range: 0.0 0 - 0.70 Complete Blood Count + Differential 0.70 {x10E9/L} See Below [employer] Work Phone: Comment on above: Reference Range: 0.1 0 - 1.00 Complete Blood Count + Differential 1.36 {x10E9/L} See Below [employer] Work Phone: Comment on above: Reference Range: 1.2 0 - 4.80 Complete Blood Count + Differential 5.02 {x10E9/L} See Below OvonyxPierce Benítez Work Phone: Comment on above: Reference Range: 1.2 0 - 7.70 Complete Blood Count + Differential 1.8 % 0.0 - 6.0 Dominique Benítez Work Phone: Complete Blood Count + Differential 0.4 % 0.0 - 0.9 Dominique Benítez Work Phone: Comment on above: Immature Granulocyte Count (IG) includes promyelocytes, myelocytes and metamyelocytes but does not include bands. Percent differential counts (%) should be interpreted in the context of the absolute cell counts (cells/L). Complete Blood Count + Differential 0.0 {/100_WBC} 0.0-0.0 Dominique Beíntez Work Phone: Laboratory - Chemistry and C hemistry - challengeon 06-08-2021 Albumin BCP dye [Mass/Vol] 4.0 g/dL 3.4 - 5.0 Dominique Benítez Work Phone: ALP [Catalytic activity/Vol] 80 U/L 33 - 136 Dominique Benítez Work Phone: ALT With P-5'-P [Catalytic activity/Vol] 22 U/L 10 - 52 OvonyxPierce Benítez Work Phone: Comment on above: Patients treated wit h Sulfasalazine may generate falsely decreased results for ALT. Anion gap [Moles/Vol] 16 mmol/L 10 - 20 - [facility] Work Phone: AST With P-5'-P [Catalytic activity/Vol] 25 U/L 9 - 39 [facility] Work Phone: [phone] Bilirubin [Mass/Vol] 0.9 mg/dL 0.0 - 1.2 [facility] Work Phone: [phone] Calcium [Mass/Vol] 9.6 mg/dL 8.6 - 10.6 [facility] Work Phone: [phone] Chloride [Moles/Vol] 98 mmol/L 98 - 107 [facility] Work Phone: [phone] CO2 [Moles/Vol] 29 mmol/L 21 - 32 [facility] Work Phone: [phone] Creatinine [Mass/Vol] 1.18 mg/dL See Below [facility] Work Phone: Comment on above: Reference Range: 0.5 0 - 1.30 Glucose [Mass/Vol] 81 mg/dL 74 - 99 -[facility] Work Phone: [phone] Potassium [Moles/Vol] 3.7 mmol/L 3.5 - 5.3 [facility] Work Phone: [phone] Protein [Mass/Vol] 6.6 g/dL 6.4 - 8.2 [facility] Work Phone: [phone] Sodium [Moles/Vol] 139 mmol/L 136 - 145 [facility] Work Phone: Urea nitrogen [Mass/Vol] 17 mg/dL 6 - 23 MG-[facility] Work Phone: [phone] Magnesium, Serumon 2 Magnesium [Mass/Vol] 2.00 mg/dL See Below -M gerber Benítez Work Phone: Comment on above: Reference Range: 1.6 0 - 2.40 No Panel Informationon 06-08 69 {mL/min/1.73m2} >90 MG-Med colette Benítez Work Phone: Comment on above: CALCULATIONS OF LILI MATED GFR ARE PERFORMED USING THE 2020 CKD-EPI STUDY REFIT EQUATION WITHOUT THE RACE VARIABLE FOR THE IDMS-TRACEABLE CREATININE METHODS.https://jasn.asnjournals.org/content/early/ ASN.4369078544 Laboratory - Hematology and Cell countson 06-07-2021 Erythrocyte distribution width (RBC) [Ratio] 12.5 % See Below Dominique Benítez Work Phone: Comment on above: Reference Range: 11. 5 - 14.5 Hematocrit (Bld) [Volume fraction] 41.0 % See Below Dominique Benítez Work Phone: Comment on above: Reference Range: 41. 0 - 52.0 Hemoglobin (Bld) [Mass/Vol] 13.3 g/dL below low threshold See Below Dominique Benítez Work Phone: Comment on above: Reference Range: 13. 5 - 17.5 MCHC (RBC) [Mass/Vol] 32.4 g/dL See Below ISRA Benítez Work Phone: Comment on above: Reference Range: 32. 0 - 36.0 MCV (RBC) [Entitic vol] 100 fL 80 - 100 M Gagan Benítez Work Phone: Platelets (Bld) [#/Vol] 148 10*3/uL below lo w threshold 150 - 450 Dominique Benítez Work Phone: RBC (Bld) [#/Vol] 4.08 {x10E12/L} below low threshold See Below Dominique Benítez Work Phone: Comment on above: Reference Range: 4.5 0 - 5.90 WBC (Bld) [#/Vol] 6.9 10*3/uL 4.4 - 11.3 MG-Med colette Benítez Work Phone: No Panel Informationon 06-07 0.0 {/100_WBC} 0.0-0.0 MG-Medicin e -Izaiah Benítez Work Phone: Renal Function Panelon 06-07 Albumin BCP dye [Mass/Vol] 3.8 g/dL 3.4 - 5.0 MG-Medicine -Izaiah Benítez Work Phone: Anion gap [Moles/Vol] 11 mmol/L 10 - 20 MG- Medicine Sharon Benítez Work Phone: Calcium [Mass/Vol] 9.4 mg/dL 8.6 - 10.6 MG-Med colette Benítez Work Phone: Chloride [Moles/Vol] 102 mmol/L 98 - 107 MG-M edcolette Benítez Work Phone: CO2 [Moles/Vol] 30 mmol/L 21 - 32 MG-[facility] ne Sharon Benítez Work Phone: Creatinine [Mass/Vol] 1.18 mg/dL See Below MG- Medicine Sharon Benítez Work Phone: Comment on above: Reference Range: 0.5 0 - 1.30 Glucose [Mass/Vol] 80 mg/dL 74 - 99 MG-Med colette Benítez Work Phone: Phosphate [Mass/Vol] 4.0 mg/dL 2.5 - 4.9 MG-M edcolette Benítez Work Phone: Comment on above: The performance peggy acteristics of phosphorus testing in heparinized plasma have been validated by the individual laboratory site where testing is performed. Testing on heparinized plasma is not approved by the FDA; however, such approval is not necessary. Potassium [Moles/Vol] 4.5 mmol/L 3.5 - 5.3 MG- Medicine -Izaiah Benítez Work Phone: Sodium [Moles/Vol] 138 mmol/L 136 - 145 MG-Med icine Sharon Benítez Work Phone: Urea nitrogen [Mass/Vol] 18 mg/dL 6 - 23 MG-Pierce Benítez Work Phone: Renal Function Panel 69 {mL/min/1.73m2} >90 MG-Pierce Benítez Work Phone: Comment on above: CALCULATIONS OF LILI MATED GFR ARE PERFORMED USING THE 2020 CKD-EPI STUDY REFIT EQUATION WITHOUT THE RACE VARIABLE FOR THE IDMS-TRACEABLE CREATININE METHODS.https://jasn.asnjournals.org/content/early/ ASN.3759498036 HIV 1/2 ANTIGEN/ANTIBODY SCR EEN WITH REFLEX TO CONFIRMATIONon 06-06-2021 HIV 1+2 Ab Qn (S) Non-Reactive See Below MG-Me dicine Sharon Benítez Work Phone: Comment on above: SOURCE: Reference nge: NONREACTIVE HIV Ag/Ab screen is performed using the Siemens Navi[employer]llRapidlea HIV Ag/Ab Combo assay which detects the presence of HIV p24 antigen as well as antibodies to HIV-1 (Group M and O) and HIV-2..No laboratory evidence of HIV infection. If acute HIV infection is suspected, consider testing for HIV RNA by PCR (viral load). Magnesium, Serumon 2 Magnesium [Mass/Vol] 2.23 mg/dL See Below MG-M edicine Sharon Benítez Work Phone: Comment on above: Reference Range: 1.6 0 - 2.40 No Panel Informationon 06-06 266 {SECONDS} above high threshold 89 - 169 MG-Pierce Benítez Work Phone: Comment on above: Note new reference r ana as of 05/23/2018. Target ACT range will vary based on the patient population, clinical status, and surgical intervention occurring. 288 {SECONDS} above high threshold 89 - 169 MG-Pierce Benítez Work Phone: Comment on above: Note new reference r ana as of 05/23/2018. Target ACT range will vary based on the patient population, clinical status, and surgical intervention occurring. MG-Medicine Sharon Benítez Work Phone: Renal Function Panelon 06-06 Albumin BCP dye [Mass/Vol] 4.0 g/dL 3.4 - 5.0 MG-Pierce Benítez Work Phone: Anion gap [Moles/Vol] 11 mmol/L 10 - 20 MG- Pierce Benítez Work Phone: Calcium [Mass/Vol] 9.3 mg/dL 8.6 - 10.6 MG-Med colette Benítez Work Phone: Chloride [Moles/Vol] 103 mmol/L 98 - 107 MG-M edcolette Benítez Work Phone: CO2 [Moles/Vol] 31 mmol/L 21 - 32 [facility] ne Sharon Benítez Work Phone: Creatinine [Mass/Vol] 1.21 mg/dL See Below MG- Pierce Benítez Work Phone: Comment on above: Reference Range: 0.5 0 - 1.30 Glucose [Mass/Vol] 87 mg/dL 74 - 99 MG-Med colette Benítez Work Phone: Phosphate [Mass/Vol] 3.9 mg/dL 2.5 - 4.9 MG-M gerber Benítez Work Phone: Comment on above: The performance peggy acteristics of phosphorus testing in heparinized plasma have been validated by the individual laboratory site where testing is performed. Testing on heparinized plasma is not approved by the FDA; however, such approval is not necessary. Potassium [Moles/Vol] 4.1 mmol/L 3.5 - 5.3 MG- Pierce Benítez Work Phone: Sodium [Moles/Vol] 141 mmol/L 136 - 145 MG-Med colette Benítez Work Phone: Urea nitrogen [Mass/Vol] 21 mg/dL 6 - 23 MG-Pierce Benítez Work Phone: Renal Function Panel 67 {mL/min/1.73m2} >90 MG-Pierce Benítez Work Phone: Comment on above: CALCULATIONS OF LILI MATED GFR ARE PERFORMED USING THE 2020 CKD-EPI STUDY REFIT EQUATION WITHOUT THE RACE VARIABLE FOR THE IDMS-TRACEABLE CREATININE METHODS.https://jasn.asnjournals.org/content// ASN.5150582218 CT Angio Coronary Arteries w ith Heart Flowon 06-05-2021 CT Angio Coronary Arteries with Heart Flow Normal MG-Pierce Benítez Work Phone: Magnesium, Serumon Magnesium [Mass/Vol] 2.11 mg/dL See Below MG-M gerber Benítez Work Phone: Comment on above: Reference Range: 1.6 0 - 2.40 Renal Function Panelon 06-05 Albumin BCP dye [Mass/Vol] 4.3 g/dL 3.4 - 5.0 MG-Pierce Benítez Work Phone: Anion gap [Moles/Vol] 14 mmol/L 10 - 20 MG- Pierce Benítez Work Phone: Calcium [Mass/Vol] 9.9 mg/dL 8.6 - 10.6 MG-Med icine Sharon Benítez Work Phone: Chloride [Moles/Vol] 100 mmol/L 98 - 107 MG-M edcolette Benítez Work Phone: CO2 [Moles/Vol] 31 mmol/L 21 - 32 MG-[facility] ne Sharon Benítez Work Phone: Creatinine [Mass/Vol] 1.14 mg/dL See Below MG- Pierce Benítez Work Phone: Comment on above: Reference Range: 0.5 0 - 1.30 Glucose [Mass/Vol] 114 mg/dL above high threshold 74 - 99 MG-Pierce Benítez Work Phone: Phosphate [Mass/Vol] 3.8 mg/dL 2.5 - 4.9 MG-M [facility] Sharon Benítez Work Phone: Comment on above: The performance peggy acteristics of phosphorus testing in heparinized plasma have been validated by the individual laboratory site where testing is performed. Testing on heparinized plasma is not approved by the FDA; however, such approval is not necessary. Potassium [Moles/Vol] 4.0 mmol/L 3.5 - 5.3 [facility] Pierce Benítez Work Phone: Sodium [Moles/Vol] 141 mmol/L 136 - 145 -[facility] icine Sharon Benítez Work Phone: Urea nitrogen [Mass/Vol] 18 mg/dL 6 - 23 [facility] Work Phone: Renal Function Panel 72 {mL/min/1.73m2} >90 [facility] Work Phone: Comment on above: CALCULATIONS OF LILI MATED GFR ARE PERFORMED USING THE 2020 CKD-EPI STUDY REFIT EQUATION WITHOUT THE RACE VARIABLE FOR THE IDMS-TRACEABLE CREATININE METHODS.https://jasn.asnjournals.org/content// ASN.5380898073 Complete Blood Count + Diffe walion 06-04-2021 Basophils/100 WBC (Bld) 0.6 % 0.0 - 2.0 M Pierce Benítez Work Phone: Erythrocyte distribution width (RBC) [Ratio] 12.5 % See Below [facility] Work Phone: Comment on above: Reference Range: 11. 5 - 14.5 Hematocrit (Bld) [Volume fraction] 44.8 % See Below [facility] Work Phone: Comment on above: Reference Range: 41. 0 - 52.0 Hemoglobin (Bld) [Mass/Vol] 14.3 g/dL See Below [facility] Work Phone: Comment on above: Reference Range: 13. 5 - 17.5 Lymphocytes/100 WBC (Bld) 23.3 % See Below -Pierce Benítez Work Phone: Comment on above: Reference Range: 13. 0 - 44.0 MCHC (RBC) [Mass/Vol] 31.9 g/dL below low threshold See Below -Pierce Benítez Work Phone: Comment on above: Reference Range: 32. 0 - 36.0 MCV (RBC) [Entitic vol] 98 fL 80 - 100 M Gagan Benítez Work Phone: [phone] Monocytes/100 WBC (Bld) 9.1 % 2.0 - 10.0 M Gagan Benítez Work Phone: [phone] Neutrophils/100 WBC (Bld) 64.1 % See Below Dominique Benítez Work Phone: Comment on above: Reference Range: 40. 0 - 80.0 Platelets (Bld) [#/Vol] 179 10*3/uL 150 - 450 Dominique Benítez Work Phone: [phone] RBC (Bld) [#/Vol] 4.55 {x10E12/L} See Below MG Lety Benítez Work Phone: Comment on above: Reference Range: 4.5 0 - 5.90 WBC (Bld) [#/Vol] 7.2 10*3/uL 4.4 - 11.3 MG-Med icine -Izaiah Benítez Work Phone: Complete Blood Count + Differential 0.04 {x10E9/L} See Below MGLety Benítez Work Phone: Comment on above: Reference Range: 0.0 0 - 0.10 Complete Blood Count + Differential 0.18 {x10E9/L} See Below -Pierce Benítez Work Phone: Comment on above: Reference Range: 0.0 0 - 0.70 Complete Blood Count + Differential 0.65 {x10E9/L} See Below Dominique Benítez Work Phone: Comment on above: Reference Range: 0.1 0 - 1.00 Complete Blood Count + Differential 1.67 {x10E9/L} See Below [employer]Izaiah [employer] Work Phone: Comment on above: Reference Range: 1.2 0 - 4.80 Complete Blood Count + Differential 4.61 {x10E9/L} See Below [employer]Izaiah [employer] Work Phone: Comment on above: Reference Range: 1.2 0 - 7.70 Complete Blood Count + Differential 2.5 % 0.0 - 6.0 Avison YoungPierce OvonyxIzaiah Benítez Work Phone: Complete Blood Count + Differential 0.4 % 0.0 - 0.9 [employer] Work Phone: Comment on above: Immature Granulocyte Count (IG) includes promyelocytes, myelocytes and metamyelocytes but does not include bands. Percent differential counts (%) should be interpreted in the context of the absolute cell counts (cells/L). Complete Blood Count + Differential 0.0 {/100_WBC} 0.0-0.0 Avison YoungPierce OvonyxIzaiah [employer] Work Phone: Hemoglobin A1Con 06-04-2021 Glucose [Mass/Vol] 105 mg/dL [employer] colette Herrera Benítez Work Phone: HbA1c (Bld) [Mass fraction] 5.3 % [employer]Izaiah [employer] Work Phone: Comment on above: Diagnosis of Diabete s-Adults Non-Diabetic: < or = 5.6% Increased risk for developing diabetes: 5.7-6.4% Diagnostic of diabetes: > or = 6.5%. Monitoring of Diabetes Age (y) Therapeutic Goal (%) Adults: >18 <7.0 Pediatrics: 13-18 <7.5 7-12 <8.0 0- 6 7.5-8.5 [employer] [employer]. Diabetes Care 33(S1), Feb 2009. Lipid Panelon 06-04-2021 Cholesterol [Mass/Vol] 189 mg/dL 0 - 199 [employer] CommercePierce OvonyxIzaiah [employer] Work Phone: Comment on above: . AGE DESIRABLE BORD TU HIGH HIGH 0-19 Y 0 - 169 170 - 199 >/= 200 20-24 Y 0 - 189 190 - 224 >/= 225 >24 Y 0 - 199 200 - 239 >/= 240 All ranges are based on fasting samples. Specific therapeutic targets will vary based on patient-specific cardiac risk.. Pediatric guidelines reference:Pediatrics 2011, 128(S5). Adult guidelines reference: NCEP ATPIII Guidelines, JANEEN 2001, 258:2486-97. Venipuncture immediately after or during the administration of Metamizole may lead to falsely low results. Testing should be performed immediately prior to Metamizole dosing. Cholesterol in HDL [Mass/Vol] 49.1 mg/dL [employer] Work Phone: Comment on above: . AGE VERY LOW LOW N ORMAL HIGH 0-19 Y < 35 < 40 40-45 ---- 20-24 Y ---- < 40 >45 ---- >24 Y ---- < 40 40-60 >60. Cholesterol in LDL [Mass/Vol] 109 mg/dL above high threshold 0 - 99 [employer]VisConPro Work Phone: Comment on above: . NEAR BORD AGE SOBIA RABLE OPTIMAL HIGH HIGH VERY HIGH 0-19 Y 0 - 109 --- 110-129 >/= 130 ---- 20-24 Y 0 - 119 --- 120-159 >/= 160 ---- >24 Y 0 - 99 100-129 130-159 160-189 >/=190. Cholesterol.total/Jelly sterol in HDL [Mass ratio] 3.8 {ratio} MGVisCon[employer] Work Phone: Comment on above: REF VALUESDESIRABLE < 3.4HIGH RISK > 5.0 Triglyceride [Mass/Vol] 153 mg/dL above hi gh threshold 0 - 149 [employer] Work Phone: Comment on above: . AGE DESIRABLE BORD TU HIGH HIGH VERY HIGH 0 D-90 D 19 - 174 ---- ---- ----91 D- 9 Y 0 - 74 75 - 99 >/= 100 ---- 10-19 Y 0 - 89 90 - 129 >/= 130 ---- 20-24 Y 0 - 114 115 - 149 >/= 150 ---- >24 Y 0 - 149 150 - 199 200- 499 >/= 500. Venipuncture immediately after or during the administration of Metamizole may lead to falsely low results. Testing should be performed immediately prior to Metamizole dosing. Lipid Panel 31 mg/dL 0 - 40 MG-Medicine -Izaiah Benítez Work Phone: Renal Function Panelon 06-04 Albumin BCP dye [Mass/Vol] 4.3 g/dL 3.4 - 5.0 MG-Medicine -Izaiah Benítez Work Phone: Anion gap [Moles/Vol] 13 mmol/L 10 - 20 MG- Medicine -Izaiah Benítez Work Phone: Calcium [Mass/Vol] 9.8 mg/dL 8.6 - 10.6 MG-Med icine -Izaiah Benítez Work Phone: Chloride [Moles/Vol] 102 mmol/L 98 - 107 MG-M edicine -Izaiah Benítez Work Phone: CO2 [Moles/Vol] 30 mmol/L 21 - 32 MG-Medici ne -Izaiah Benítez Work Phone: Creatinine [Mass/Vol] 1.08 mg/dL See Below MG- Medicine -Izaiah Benítez Work Phone: Comment on above: Reference Range: 0.5 0 - 1.30 Glucose [Mass/Vol] 86 mg/dL 74 - 99 MG-Med icine -Izaiah Benítez Work Phone: Phosphate [Mass/Vol] 3.8 mg/dL 2.5 - 4.9 MG-M edicine -Izaiah Benítez Work Phone: Comment on above: The performance peggy acteristics of phosphorus testing in heparinized plasma have been validated by the individual laboratory site where testing is performed. Testing on heparinized plasma is not approved by the FDA; however, such approval is not necessary. Potassium [Moles/Vol] 4.4 mmol/L 3.5 - 5.3 MG- Medicine -Izaiah Benítez Work Phone: Sodium [Moles/Vol] 141 mmol/L 136 - 145 -Wil Benítez Work Phone: Urea nitrogen [Mass/Vol] 18 mg/dL 6 - 23 Dominique Benítez Work Phone: Renal Function Panel 77 {mL/min/1.73m2} >90 Dominique Benítez Work Phone: Comment on above: CALCULATIONS OF LILI MATED GFR ARE PERFORMED USING THE 2020 CKD-EPI STUDY REFIT EQUATION WITHOUT THE RACE VARIABLE FOR THE IDMS-TRACEABLE CREATININE METHODS.https://jasn.asnjournals.org/content/early/ ASN.8601698345 Troponin I, Serumon 06-05-19 Troponin I.cardiac [Mass/Vol] 0.49 ng/mL above high threshold See Below Avison YoungPierce Benítez Work Phone: Comment on above: Reference Range: 0.0 0 - 0.03LESS THAN 0.04 NG/ML: NEGATIVEREPEAT TESTING IN THREE TO SIX HOURSIF CLINICALLY INDICATED.0.04 - 0.5 NG/ML: CONSISTENT WITH POSSIBLECARDIAC DAMAGE AND POSSIBLE INCREASEDCLINICAL RISK.SERIAL MEASUREMENTS MAY HELP ASSESS EXTENT OFMYOCARDIAL DAMAGE.>0.5 NG/ML: CONSISTENT WITH CARDIAC DAMAGE,INCREASED CLINICAL RISK AND MYOCARDIALINFARCTION. SERIAL MEASUREMENTS MAY HELPASSESS EXTENT OF MYOCARDIAL DAMAGE..Note: Troponin I testing is performed using different testing methodology at [facility] than at other [facility]. Direct result comparisons should only be made within the same method.. Biotin interference may cause falsely decreased results. Patients taking a Biotin dose of up to 5 mg/day should refrain from taking Biotin for 24 hours before sample collection. Providers may contact their laboratory for further information. Complete Blood Count + Diffe rentialon 06-03-2021 Basophils/100 WBC (Bld) 0.4 % 0.0 - 2.0 M AkshatOvonyxPierce Benítez Work Phone: Erythrocyte distribution width (RBC) [Ratio] 12.4 % See Below Avison YoungPierce Benítez Work Phone: Comment on above: Reference Range: 11. 5 - 14.5 Hematocrit (Bld) [Volume fraction] 38.3 % below low threshold See Below Dominique Benítez Work Phone: [phone] Comment on above: Reference Range: 41. 0 - 52.0 Hemoglobin (Bld) [Mass/Vol] 13.3 g/dL below low threshold See Below OvonyxPierce Benítez Work Phone: [phone] Comment on above: Reference Range: 13. 5 - 17.5 Lymphocytes/100 WBC (Bld) 22.5 % See Below OvonyxPierce Benítez Work Phone: [phone] Comment on above: Reference Range: 13. 0 - 44.0 MCHC (RBC) [Mass/Vol] 34.7 g/dL See Below ISRA Benítez Work Phone: [phone] Comment on above: Reference Range: 32. 0 - 36.0 MCV (RBC) [Entitic vol] 93 fL 80 - 100 M Gagan Benítez Work Phone: [phone] Monocytes/100 WBC (Bld) 9.6 % 2.0 - 10.0 M Gagan Benítez Work Phone: [phone] Neutrophils/100 WBC (Bld) 65.6 % See Below Dominique Benítez Work Phone: [phone] Comment on above: Reference Range: 40. 0 - 80.0 Platelets (Bld) [#/Vol] 154 10*3/uL 150 - 450 Dominique Benítez Work Phone: [phone] RBC (Bld) [#/Vol] 4.13 {x10E12/L} below low threshold See Below Dominique Benítez Work Phone: [phone] Comment on above: Reference Range: 4.5 0 - 5.90 WBC (Bld) [#/Vol] 6.9 10*3/uL 4.4 - 11.3 [facility] Sharon Ben[facility]te[facility] Work Phone: [phone] Complete Blood Count + Differential 0.03 {x10E9/L} See Below [facility] Work Phone: Comment on above: Reference Range: 0.0 0 - 0.10 Complete Blood Count + Differential 0.11 {x10E9/L} See Below [facility] Work Phone: Comment on above: Reference Range: 0.0 0 - 0.70 Complete Blood Count + Differential 0.66 {x10E9/L} See Below [facility] Work Phone: Comment on above: Reference Range: 0.1 0 - 1.00 Complete Blood Count + Differential 1.55 {x10E9/L} See Below [facility] Work Phone: Comment on above: Reference Range: 1.2 0 - 4.80 Complete Blood Count + Differential 4.51 {x10E9/L} See Below [facility] Work Phone: Comment on above: Reference Range: 1.2 0 - 7.70 Complete Blood Count + Differential 1.6 % 0.0 - 6.0 [facility]ie[facility] Benítez Work Phone: Complete Blood Count + Differential 0.3 % 0.0 - 0.9 [facility] Ben[facility] Work Phone: Comment on above: Immature Granulocyte Count (IG) includes promyelocytes, myelocytes and metamyelocytes but does not include bands. Percent differential counts (%) should be interpreted in the context of the absolute cell counts (cells/L). Complete Blood Count + Differential 0.0 {/100_WBC} 0.0-0.0 [facility] Ben[facility]te[facility] Work Phone: INFLUENZA A/B, COVID 2019 PC R,SYMPTOMATICon 06-03-2021 Date and time of symptom onset [id number] [facility] Ben[facility] Work Phone: INFLUENZA A/B, COVID 2018 PCR,SYMPTOMATIC Not detected See Below [facility] Ben[facility] Work Phone: Comment on above: Reference Range: Not Detected.This test has received FDA Emergency Use Authorization (EUA) and has been verified by [facility] ([facility]). This test is only authorized for the duration of time that circumstances exist to justify the authorization of the emergency use of in vitro diagnostic tests for the detection of SARS-CoV-2 virus and/or diagnosis of COVID-19 infection under section 564(b)(1) of the Act, 21 U.S.C. 360bbb-3(b)(1), unless the authorization is terminated or revoked sooner. [facility] is certified under CLIA-88 as qualified to perform high complexity testing. Testing is performed in the [facility] located at [address] [place] [address].SARS-CoV-2/Flu/RSV Multiplex Test: Fact sheet for providers: https://www.fda.gov/media/323204/downloadFact sheet for patients: https://www.fda.gov/media/217387/download Reference Range: Not Detected Respiratory virus testing is performed routinely by PCR for Influenza A/B and RSV. Not Detected results do not preclude Influenza A/B or RSV infections since the adequacy of sample collection or low viral burden may impact the clinical sensitivity of this test method. SOURCE: Nasal, Nasop haryngealReference Range: Not Detected Respiratory virus testing is performed routinely by PCR for Influenza A/B and RSV. Not Detected results do not preclude Influenza A/B or RSV infections since the adequacy of sample collection or low viral burden may impact the clinical sensitivity of this test method. Laboratory - Chemistry and C hemistry - challengeon 06-03-2021 TSH Qn 1.64 m[IU]/L See Below [employer] Work Phone: Comment on above: Reference Range: 0.4 4 - 3.98 TSH testing is performed using different testing methodology at [facility] than at other [facility]. Direct result comparisons should only be made within the same method. Albumin BCP dye [Mass/Vol] 3.9 g/dL 3.4 - 5.0 [employer] Work Phone: ALP [Catalytic activity/Vol] 80 U/L 33 - 136 [facility] Work Phone: ALT With P-5'-P [Catalytic activity/Vol] 14 U/L 10 - 52 [facility] Work Phone: [phone] Comment on above: Patients treated wit h Sulfasalazine may generate falsely decreased results for ALT. Anion gap [Moles/Vol] 11 mmol/L 10 - 20 [facility]- [facility]zaiahDavid [facility] Work Phone: AST With P-5'-P [Catalytic activity/Vol] 13 U/L 9 - 39 [facility] Work Phone: [phone] Bilirubin [Mass/Vol] 0.5 mg/dL 0.0 - 1.2 MG-M [facility] Work Phone: [phone] Calcium [Mass/Vol] 9.5 mg/dL 8.6 - 10.6 MG-Med icine [facility] Work Phone: [phone] Chloride [Moles/Vol] 106 mmol/L 98 - 107 MG-M [facility] Work Phone: [phone] CO2 [Moles/Vol] 27 mmol/L 21 - 32 [facility] center[facility]zaiah Benítez Work Phone: [phone] Creatinine [Mass/Vol] 1.09 mg/dL See Below [facility] Work Phone: [phone] Comment on above: Reference Range: 0.5 0 - 1.30 Glucose [Mass/Vol] 104 mg/dL above high threshold 74 - 99 [facility] Work Phone: Natriuretic peptide B (Bld) [Mass/Vol] 112 pg/mL above high threshold 0 - 99 [facility] Work [facility]: Comment on above: . <100 pg/mL - Heart failure tllighge231-023 pg/mL - Intermediate probability of acute heart. failure exacerbation. Correlate with clinical. context and patient history. >=300 pg/mL - Heart Failure likely. Correlate with clinical. context and patient history. Biotin interference may cause falsely decreased results. Patients taking a Biotin dose of up to 5 mg/day should refrain from taking Biotin for 24 hours before sample collection. Providers may contact their local laboratory for further information. Potassium [Moles/Vol] 3.9 mmol/L 3.5 - 5.3 MG- Medicine -Izaiah Benítez Work Phone: Protein [Mass/Vol] 7.0 g/dL 6.4 - 8.2 MG-Med nunone -Izaiah Benítez Work Phone: [phone] Sodium [Moles/Vol] 140 mmol/L 136 - 145 MG-Med icine -Izaiahmarisol Bneítez Work Phone: [phone] Urea nitrogen [Mass/Vol] 16 mg/dL 6 - 23 MG-Medicine -Izaiah Benítez Work Phone: Magnesium, Serumon Magnesium [Mass/Vol] 2.14 mg/dL See Below MG-M edicine -Izaiah Benítez Work Phone: [phone] Comment on above: Reference Range: 1.6 0 - 2.40 No Panel Informationon 06-03 [email or web address]?RetrieveTestByDateTim e?VnmjdktLY=[id number]&Da te=03-06-2021&Time=23%3a 12%3a15%3a00&TestType=EC G&Site=1&OutputType=PDF& Ext=PDF MG-Medicine -Izaiah Benítez Work Phone: [phone] Normal sinus rhythm MG-Me dicine -Izaiah Benítez Work Phone: [phone] Abnormal MG-Medicine -Izaiah Benítez Work Phone: [phone] 1 MG-Medicine -Izaiah Benítez Work Phone: [phone] 1 MG-Medicine -Izaiah Benítez Work Phone: [phone] 1 MG-Medicine -Izaiah Benítez Work Phone: [phone] 1 MG-Medicine -Izaiah Benítez Work Phone: [phone] 1 MG-Medicine -Izaiah Benítez Work Phone: [phone] 1 MG-Medicine -Izaiah Jeyson Work Phone: [phone] -[phone] 1 MG-Medicine -Izaiahmarisol Benítez Work Phone: [phone] 1 MG-Medicine -Izaiah Jeyson Work Phone: [phone] -[phone] 1 MG-Medicine -Izaiahmarisol Benítez Work Phone: [phone] 1 MG-Medicine -Izaiahmarisol Benítez Work Phone: [phone] 1 MG-Medicine -Izaiah Jeyson Work Phone: [phone] 1 MG-Medicine -Izaiah Jeyson Work Phone: [phone] 1 MG-Medicine -Izaiahmarisol Benítez Work Phone: [phone] 1 MG-Medicine -Izaiah Jeyson Work Phone: [phone] [email or web address]?RetrieveTestByDateTim e?DosqldrWB=[id number]&Da te=03-06-2021&Time=23%3a 11%3a44%3a00&TestType=EC G&Site=1&OutputType=PDF& Ext=PDF MG-Medicine -Izaiah Jeyson Work Phone: [phone] Normal sinus rhythm MG-Me dicine -Izaiahmarisol Benítez Work Phone: [phone] Abnormal MG-Medicine -Izaiahmarisol Benítez Work Phone: [phone] 1 MG-Medicine -Izaiah Jeyson Work Phone: [phone] 1 MG-Medicine -Izaiah Jeyson Work Phone: [phone] 1 MG-Medicine -Izaiah Jeyson Work Phone: [phone] 1 MG-Medicine -Izaiah Jeyson Work Phone: [phone] 1 MG-Medicine -Izaiah Jeyson Work Phone: [phone] 1 MG-Medicine -Izaiahmarisol Benítez Work Phone: [phone] 1 MG-Medicine -Izaiahmarisol Benítez Work Phone: [phone] 1 MG-Medicine -Izaiah Jeyson Work Phone: [phone] 1 MG-Medicine -Izaiah Benítez Work Phone: [phone] 1 MG-Medicine -Izaiah Benítez Work Phone: [phone] 1 MG-Medicine -Izaiah Benítez Work Phone: [phone] 1 MG-Medicine -Izaiah Benítez Work Phone: [phone] 1 MG-Medicine -Izaiah Benítez Work Phone: [phone] 1 MG-Medicine -Izaiah Benítez Work Phone: [phone] [email or web address]?RetrieveTestByDateTim e?[id number]=[id number]&Da te=03-06-2021&Time=14%3a 15%3a16%3a00&TestType=EC G&Site=1&OutputType=PDF& Ext=PDF [facility] [facility] Work Phone: [phone] Please see ED Provid er Note for formal interpretation MG-[facility] Work Phone: [phone] Normal MG-[facility] Work Phone: [phone] [facility] Work Phone: [phone] [facility] Work Phone: [phone] 1 [facility] Work Phone: [phone] [facility] Work Phone: [phone] 1 [facility] Work Phone: [phone] 1 [facility] Work Phone: [phone] 1 [facility] Work Phone: [phone] [facility] Work Phone: [phone] [facility] Work Phone: [phone] [facility] Work Phone: [phone] [facility] Work Phone: [phone] [facility] Work Phone: [phone] [facility] Work Phone: 76 {mL/min/1.73m2} >90 MG-Med icine -Izaiah Benítez Work Phone: Comment on above: CALCULATIONS OF LILI MATED GFR ARE PERFORMED USING THE 2020 CKD-EPI STUDY REFIT EQUATION WITHOUT THE RACE VARIABLE FOR THE IDMS-TRACEABLE CREATININE METHODS.https://jasn.asnjournals.org/content/early/ ASN.3773894762 Please click on the link to view the study images Normal MG-Pierce Benítez Work Phone: Radiologyon 06-03-2021 XR Chest Single view Normal MG-M gerber Benítez Work Phone: Troponin I, Serumon 06-04-19 Troponin I.cardiac [Mass/Vol] 0.66 ng/mL above high threshold See Below Dominique Benítez Work Phone: Comment on above: Reference Range: 0.0 0 - 0.03LESS THAN 0.04 NG/ML: NEGATIVEREPEAT TESTING IN THREE TO SIX HOURSIF CLINICALLY INDICATED.0.04 - 0.5 NG/ML: CONSISTENT WITH POSSIBLECARDIAC DAMAGE AND POSSIBLE INCREASEDCLINICAL RISK.SERIAL MEASUREMENTS MAY HELP ASSESS EXTENT OFMYOCARDIAL DAMAGE.>0.5 NG/ML: CONSISTENT WITH CARDIAC DAMAGE,INCREASED CLINICAL RISK AND MYOCARDIALINFARCTION. SERIAL MEASUREMENTS MAY HELPASSESS EXTENT OF MYOCARDIAL DAMAGE..Note: Troponin I testing is performed using different testing methodology at [facility] than at other [facility] hospitals. Direct result comparisons should only be made within the same method.. Biotin interference may cause falsely decreased results. Patients taking a Biotin dose of up to 5 mg/day should refrain from taking Biotin for 24 hours before sample collection. Providers may contact their laboratory for further information. This is a critical result. Per Laboratory policy, critical results for this test only qualify to the call list once per 24 hours. Troponin I.cardiac [Mass/Vol] 0.60 ng/mL Critically high See Below [facility] Work Phone: Comment on above: Reference Range: 0.0 0 - 0.03LESS THAN 0.04 NG/ML: NEGATIVEREPEAT TESTING IN THREE TO SIX HOURSIF CLINICALLY INDICATED.0.04 - 0.5 NG/ML: CONSISTENT WITH POSSIBLECARDIAC DAMAGE AND POSSIBLE INCREASEDCLINICAL RISK.SERIAL MEASUREMENTS MAY HELP ASSESS EXTENT OFMYOCARDIAL DAMAGE.>0.5 NG/ML: CONSISTENT WITH CARDIAC DAMAGE,INCREASED CLINICAL RISK AND MYOCARDIALINFARCTION. SERIAL MEASUREMENTS MAY HELPASSESS EXTENT OF MYOCARDIAL DAMAGE..Note: Troponin I testing is performed using different testing methodology at [facility] than at other [facility]. Direct result comparisons should only be made within the same method.. Biotin interference may cause falsely decreased results. Patients taking a Biotin dose of up to 5 mg/day should refrain from taking Biotin for 24 hours before sample collection. Providers may contact their laboratory for further information. TROP CALLED AND RB TO SB TIRADO, 06/03/2021 15:22 Urinalysison 06-03-2021 Color (U) YELLOW See Below [employer] Work Phone: Comment on above: Reference Range: STR AW,YELLOW Glucose Ql (U) Negative NEGATIVE MG-Medicin e -[facility] Work Phone: Ketones Ql (U) Negative NEGATIVE MG-Medicin e [employer] Work Phone: Leukocyte esterase Test strip Ql (U) Negative NEGATIVE MGOvonyxMedicine [employer] Work Phone: pH (U) 5.0 [pH] 5.0 - 8.0 [facility] [employer] Work Phone: Protein (U) [Mass/Vol] Negative NEGATIVE MG -Medicine [employer] Work Phone: RBC (U) [#/Vol] SMALL (1+) Abnormal NEGATIVE MG-Medici ne -Izaiah Benítez Work Phone: Specific gravity (U) [Rel density] 1.013 1 See Below MG-Medicine -Izaiah Benítez Work Phone: Comment on above: Reference Range: 1.0 05 - 1.035 Urinalysis Negative NEGATIVE MG-Medicine Sharon Benítez Work Phone: Urinalysis <2.0 0.0 - 1.9 MG-Medicine Sharon Benítez Work Phone: Urinalysis CLEAR CLEAR -Medicine Sharon Benítez Work Phone: Urinalysis, Microscopicon Hyaline casts LM Ql (Urine sed) 3+ Abnormal Pierce Benítez Work Phone: Urinalysis, Microscopic 1+ Abnormal M GPierce Benítez Work Phone: Urinalysis, Microscopic <1 M GPierce Benítez Work Phone: Urinalysis, Microscopic 1 {/HPF} 0-5 M Gagan Herrera Benítez Work Phone: Complete Blood Count + Diffe rentialon 05-17-2021 Basophils/100 WBC (Bld) 0.4 % 0.0 - 2.0 M G-[facility]-[place] [address] [facility] Work Phone: Erythrocyte distribution width (RBC) [Ratio] 12.7 % See Below MG-[facility]-[place] [address] [facility] Work Phone: Comment on above: Reference Range: 11. 5 - 14.5 Hematocrit (Bld) [Volume fraction] 45.7 % See Below MG-[facility] [address] [facility] Work Phone: Comment on above: Reference Range: 41. 0 - 52.0 Hemoglobin (Bld) [Mass/Vol] 15.3 g/dL See Below MG-[facility] [address] [facility] Work Phone: Comment on above: Reference Range: 13. 5 - 17.5 Lymphocytes/100 WBC (Bld) 15.5 % See Below MG-[facility] Work Phone: Comment on above: Reference Range: 13. 0 - 44.0 MCHC (RBC) [Mass/Vol] 33.5 g/dL See Below MG- [facility] Work Phone: Comment on above: Reference Range: 32. 0 - 36.0 MCV (RBC) [Entitic vol] 97 fL 80 - 100 M G[facility] Work Phone: Monocytes/100 WBC (Bld) 7.3 % 2.0 - 10.0 M G-[facility] Work Phone: Neutrophils/100 WBC (Bld) 76.0 % See Below MG-[facility] Work Phone: Comment on above: Reference Range: 40. 0 - 80.0 Platelets (Bld) [#/Vol] 181 10*3/uL 150 - 450 [facility] Work Phone: RBC (Bld) [#/Vol] 4.69 {x10E12/L} See Below MG -[facility] Work Phone: Comment on above: Reference Range: 4.5 0 - 5.90 WBC (Bld) [#/Vol] 8.1 10*3/uL 4.4 - 11.3 MG-[facility]ul [facility] [facility] Work Phone: Complete Blood Count + Differential 0.03 {x10E9/L} See Below MG-[facility] Work Phone: Comment on above: Reference Range: 0.0 0 - 0.10Automated WBC differential has been confirmed by manual smear. Complete Blood Count + Differential 0.05 {x10E9/L} See Below [facility] Work Phone: Comment on above: Reference Range: 0.0 0 - 0.70 Complete Blood Count + Differential 0.59 {x10E9/L} See Below MG-[facility] [address] [facility] Work Phone: Comment on above: Reference Range: 0.1 0 - 1.00 Complete Blood Count + Differential 1.25 {x10E9/L} See Below MG-[facility] [address] [facility] Work Phone: Comment on above: Reference Range: 1.2 0 - 4.80 Complete Blood Count + Differential 6.15 {x10E9/L} See Below MG-[facility] [address] [facility] Work Phone: Comment on above: Reference Range: 1.2 0 - 7.70 Complete Blood Count + Differential 0.6 % 0.0 - 6.0 MG-[facility] [address] [facility] Work Phone: Complete Blood Count + Differential 0.2 % 0.0 - 0.9 [facility] [place] [address] [facility] Work Phone: Comment on above: Immature Granulocyte Count (IG) includes promyelocytes, myelocytes and metamyelocytes but does not include bands. Percent differential counts (%) should be interpreted in the context of the absolute cell counts (cells/L). Ferritin, Serumon 05-17-2021 Ferritin [Mass/Vol] 209 ug/L 20 - 300 MG-Pu lm [facility] [place] [address] [facility] Work Phone: Gamma Glutamyl Transferase, Serumon 05-17-2021 Gamma glutamyl transferase [Catalytic activity/Vol] 29 U/L 5 - 64 MG-[facility] [place] [address] [facility] Work Phone: Immunoglobulin E Level, Seru mon 05-17-2021 IgE Qn 191 {IU/mL} 0 - 214 MG-Medicine -Izaiah Benítez Work Phone: Laboratory - Chemistry and C hemistry - challengeon 05-17-2021 Albumin BCP dye [Mass/Vol] 4.4 g/dL 3.4 - 5.0 MG-[facility] [address] [facility] Work Phone: ALP [Catalytic activity/Vol] 68 U/L 33 - 136 MG-[facility] [place] [address] [facility] Work Phone: ALT With P-5'-P [Catalytic activity/Vol] 14 U/L 10 - 52 MG-[facility] [place] [address] [facility] Work Phone: Comment on above: Patients treated wit h Sulfasalazine may generate falsely decreased results for ALT. Anion gap [Moles/Vol] 11 mmol/L 10 - 20 MG- Pulm [facility] [place] [address] [facility] Work Phone: AST With P-5'-P [Catalytic activity/Vol] 13 U/L 9 - 39 MG-[facility] [place] [address] [facility] Work Phone: Bilirubin [Mass/Vol] 0.6 mg/dL 0.0 - 1.2 MG-P ulm [facility] [place] [address] [facility] Work Phone: Calcium [Mass/Vol] 9.6 mg/dL 8.6 - 10.3 MG-Pul m [facility] [place] [address] [facility] Work Phone: Chloride [Moles/Vol] 103 mmol/L 98 - 107 MG-P ulm [facility] [place] [address] [facility] Work Phone: CO2 [Moles/Vol] 29 mmol/L 21 - 32 MG-[facility] [place] [address] [facility] Work Phone: Creatinine [Mass/Vol] 1.07 mg/dL See Below MG- Pulm [facility] [place] [address] [facility] Work Phone: Comment on above: Reference Range: 0.5 0 - 1.30 Glucose [Mass/Vol] 98 mg/dL 74 - 99 MG-Pul m [facility] [place] [address] [facility] Work Phone: IgA [Mass/Vol] 133 mg/dL 70 - 400 MG-Medicin goldie Herrera Benítez Work Phone: Comment on above: MONOCLONAL PROTEINS MAY CAUSE FALSELY LOWRESULTS IN THIS ASSAY. SERUM PROTEINELECTROPHORESIS SHOULD BE DONE THEFIRST TEST TO EVALUATE MONOCLONAL GAMMOPATHY. IgG [Mass/Vol] 1060 mg/dL 700 - 1600 MG-Medicin e -Izaiah [employer] Work Phone: Comment on above: MONOCLONAL PROTEINS MAY CAUSE FALSELY LOWRESULTS IN THIS ASSAY. SERUM PROTEINELECTROPHORESIS SHOULD BE DONE THEFIRST TEST TO EVALUATE MONOCLONAL GAMMOPATHY. IgM [Mass/Vol] 75 mg/dL 40 - 230 MG-Medicin e -Izaiah [employer] Work Phone: Comment on above: MONOCLONAL PROTEINS MAY CAUSE FALSELY LOWRESULTS IN THIS ASSAY. SERUM PROTEINELECTROPHORESIS SHOULD BE DONE THEFIRST TEST TO EVALUATE MONOCLONAL GAMMOPATHY. Iron [Mass/Vol] 67 ug/dL 35 - 150 [facility] [facility] Work Phone: Iron binding capacity [Mass/Vol] 335 ug/dL 240 - 445 [facility] [facility] Work Phone: Potassium [Moles/Vol] 3.9 mmol/L 3.5 - 5.3 MG- [facility] Work Phone: Protein [Mass/Vol] 6.9 g/dL 6.4 - 8.2 MG-[facility] Work Phone: Sodium [Moles/Vol] 139 mmol/L 136 - 145 MG-[facility] [facility] Work Phone: Urea nitrogen [Mass/Vol] 12 mg/dL 6 - 23 [facility] [facility] Work Phone: No Panel Informationon 05-17 20 % below low threshold 25 - 45 [facility] Work Phone: SEE COMMENT MG-[facility] Work Phone: Comment on above: NO SIGNIFICANT RBC A BNORMALITIES SEEN ONSMEAR REVIEW. 78 {mL/min/1.73m2} >90 MG-[facility] [facility] Work Phone: Comment on above: CALCULATIONS OF LILI MATED GFR ARE PERFORMED USING THE 2020 CKD-EPI STUDY REFIT EQUATION WITHOUT THE RACE VARIABLE FOR THE IDTX-TRACEABLE CREATININE METHODS.https://jasn.asnjournals.org/content// ASN.1127092744 Reticulocyte Counton Reticulocyte Count 35 pg 28 - 38 MG-Pul m [place] [address] [facility] Work Phone: Reticulocyte Count 12.6 % 0.0 - 16.0 MG-Pul m [place] [address] [facility] Work Phone: Reticulocyte Count 0.065 {x10E12/L} See Below MG-Pulm [place] [address] [facility] Work Phone: Comment on above: Reference Range: 0.0 22 - 0.118 Reticulocyte Count 1.4 % 0.5 - 2.0 MG-Pul m [place] [address] [facility] Work Phone: Sedimentation Rate, Erythroc yteon 05-17-2021 ESR (Bld) [Velocity] 16 mm/h 0 - 20 MG-P ulm [place] [address] [facility] Work Phone: Tobacco Screening.on 022 Fall risk assessment a) No falls within the last year MG-Otolaryn [employer] Work Phone: Tobacco use status CPHS a) Yes M G-Otolaryn [employer] Work Phone: Tobacco Screening. Yes MG-Mejia laryn [employer] [place] Work Phone: CT Chest Low Dose for Lung S creening w/o Contraston 04-21-2021 CT Chest for screening Normal MG -Pulm [place] [address] [facility] Work Phone: Complete Blood Count + Diffe rentialon 04-14-2021 Basophils/100 WBC (Bld) 0.1 % 0.0 - 2.0 M G-Otolaryn gology-[place] [employer] Work Phone: [phone] Erythrocyte distribution width (RBC) [Ratio] 13.7 % See Below Fariba [employer]erman [employer] Work Phone: [phone] Comment on above: Reference Range: 11. 5 - 14.5 Hematocrit (Bld) [Volume fraction] 47.6 % See Below Fariba [employer] Work Phone: [phone] Comment on above: Reference Range: 41. 0 - 52.0 Hemoglobin (Bld) [Mass/Vol] 15.5 g/dL See Below Fariba [employer] Work Phone: [phone] Comment on above: Reference Range: 13. 5 - 17.5 Lymphocytes/100 WBC (Bld) 7.3 % See Below Fariba [employer] Work Phone: [phone] Comment on above: Reference Range: 13. 0 - 44.0 MCHC (RBC) [Mass/Vol] 32.6 g/dL See Below ISRA [employer]serman [employer] Work Phone: [phone] Comment on above: Reference Range: 32. 0 - 36.0 MCV (RBC) [Entitic vol] 101 fL above hi gh threshold 80 - 100 Fariba wassermna Voice Work Phone: [phone] Monocytes/100 WBC (Bld) 4.3 % 2.0 - 10.0 M Vic [employer]erman [employer] Work Phone: [phone] Neutrophils/100 WBC (Bld) 88.2 % See Below Fariba [employer] Work Phone: [phone] Comment on above: Reference Range: 40. 0 - 80.0 Platelets (Bld) [#/Vol] 149 10*3/uL below lo w threshold 150 - 450 Fariba [employer] Work Phone: [phone] RBC (Bld) [#/Vol] 4.73 {x10E12/L} See Below MG -Otolarbayron jacobsogy-[place] [employer] Work Phone: Comment on above: Reference Range: 4.5 0 - 5.90 WBC (Bld) [#/Vol] 10.3 10*3/uL 4.4 - 11.3 MG-Ot myra [employer] Work Phone: Complete Blood Count + Differential 9.11 {x10E9/L} above high threshold See Below MG-Otolaryn arleneogy-[place] [employer] Work Phone: Comment on above: Reference Range: 1.2 0 - 7.70 Percent differential counts (%) should be interpreted in the context of the absolute cell counts (cells/L). Complete Blood Count + Differential 0.1 % 0.0 - 6.0 MG-Otolaryn shirleyy-[place] [employer] Work Phone: Complete Blood Count + Differential 0.01 {x10E9/L} See Below MG-Otolaryn arleneogy-[place] [employer] Work Phone: Comment on above: Reference Range: 0.0 0 - 0.10 Reference Range: 0.0 0 - 0.70 Complete Blood Count + Differential 0.44 {x10E9/L} See Below MG-Otolaryn arleneogy-[place] [employer] Work Phone: Comment on above: Reference Range: 0.1 0 - 1.00 Complete Blood Count + Differential 0.75 {x10E9/L} below low threshold See Below MG-Otolaryn arleneogy-[place] [employer] Work Phone: Comment on above: Reference Range: 1.2 0 - 4.80 Ferritin, Serumon 04-14-2021 Ferritin [Mass/Vol] 307 ug/L above high threshold 20 - 300 MG-Otolaryn arleneogy-[place] lisy [employer] Work Phone: Tobacco Screening.on 022 Fall risk assessment a) No falls within the last year MG-Pediatri cs-[place] 204 DO Work Phone: Tobacco use status CPHS a) Yes M G-Pediatri cs-[place] 204 DO Work Phone: Tobacco Screening. Yes MG-Ped iatri cs-[place] 204 DO Work Phone: Tobacco Screening.on 022 Fall risk assessment a) No falls within the last year [facility] [facility] Work Phone: Tobacco use status CPHS a) Yes M G-[facility] [facility] Work Phone: Complete Blood Count + Diffe rentialon 03-17-2021 Basophils/100 WBC (Bld) 0.1 % 0.0 - 2.0 M Vic [employer] Work Phone: [phone] Erythrocyte distribution width (RBC) [Ratio] 14.2 % See Below -Sruthi [employer] Work Phone: [phone] Comment on above: Reference Range: 11. 5 - 14.5 Hematocrit (Bld) [Volume fraction] 45.7 % See Below -Niklinwoodbayron [employer] Work Phone: [phone] Comment on above: Reference Range: 41. 0 - 52.0 Hemoglobin (Bld) [Mass/Vol] 14.9 g/dL See Below -Niklinwoodbayron jacobsNessa was[employer]erman Voice Work Phone: [phone] Comment on above: Reference Range: 13. 5 - 17.5 Lymphocytes/100 WBC (Bld) 7.0 % See Below -Niklinwoodbayron jacobsNessa [employer] Work Phone: [phone] Comment on above: Reference Range: 13. 0 - 44.0 MCHC (RBC) [Mass/Vol] 32.6 g/dL See Below MG- Otlinwoodbayron jacobsmarifer-[place] [employer] Work Phone: Comment on above: Reference Range: 32. 0 - 36.0 MCV (RBC) [Entitic vol] 99 fL 80 - 100 M G-Otolaryn gology-[place] [employer] Work Phone: [phone] Monocytes/100 WBC (Bld) 3.0 % 2.0 - 10.0 M G-Otolaryn gology-[employer] Work Phone: [phone] Neutrophils/100 WBC (Bld) 89.8 % See Below MG-Otolaryn gology-[place] Work Phone: [phone] Comment on above: Reference Range: 40. 0 - 80.0 Platelets (Bld) [#/Vol] 150 10*3/uL 150 - 450 MG-Otolaryn arleneogy-[place] [employer] Work Phone: [phone] RBC (Bld) [#/Vol] 4.61 {x10E12/L} See Below MG -Otolaryn gology-[employer] Work Phone: [phone] Comment on above: Reference Range: 4.5 0 - 5.90 WBC (Bld) [#/Vol] 10.1 10*3/uL 4.4 - 11.3 MG-Ot myra kaye-[place] [employer] Work Phone: [phone] Complete Blood Count + Differential 0.01 {x10E9/L} See Below MG-Otolaryn arleneogy-[employer] Work Phone: [phone] Comment on above: Reference Range: 0.0 0 - 0.10 Reference Range: 0.0 0 - 0.70 Complete Blood Count + Differential 0.30 {x10E9/L} See Below MG-Otolaryn gology-[employer] Work Phone: [phone] Comment on above: Reference Range: 0.1 0 - 1.00 Complete Blood Count + Differential 0.71 {x10E9/L} below low threshold See Below MG-Otolaryn gology-[place] [employer] Work Phone: [phone] Comment on above: Reference Range: 1.2 0 - 4.80 Complete Blood Count + Differential 9.11 {x10E9/L} above high threshold See Below MG-Otolaryn gology-[place] [employer] Work Phone: Comment on above: Reference Range: 1.2 0 - 7.70 Percent differential counts (%) should be interpreted in the context of the absolute cell counts (cells/L). Complete Blood Count + Differential 0.1 % 0.0 - 6.0 MG-Otolaryn arleneogy-[place] [employer] Work Phone: Ferritin, Serumon 03-17-2021 Ferritin [Mass/Vol] 303 ug/L above high threshold 20 - 300 MG-Otolaryn arleneogy-[place] [employer] Work Phone: [phone] Respirationon 03-07-2021 Fall risk assessment a) No falls within the last year [facility] Work Phone: [phone] Tobacco use status CPHS a) Yes [facility]: [phone] Respiration Normal [facility] Work Phone: [phone] Respiration Adult [facility] Work Phone: [phone] Respiration Yes [facility] Work Phone: [phone] No Panel Informationon 03-01 184CC -Urology- [place] Work Phone: [phone] Tobacco Screening.on 022 Fall risk assessment a) No falls within the last year -Urology- [place] Work Phone: [phone] Tobacco use status CPHS a) Yes M P-Urology- [place] Work Phone: [phone] Tobacco Screening. Yes MP-Uro logy- [place] Work Phone: [phone] C1Q Complementon 02-27-2021 Complement C1q [Mass/Vol] 15.8 mg/dL 10.2-20.3 MG-Pediatri cs-[place] 204 DO Work Phone: Tobacco Screening.on 022 Fall risk assessment a) No falls within the last year MG-Pediatri cs-[place] 204 DO Work Phone: Tobacco use status CPHS a) Yes M G-Pediatri cs-[place] 204 DO Work Phone: Tobacco Screening. Yes MG-Ped iatri cs-[place] 204 DO Work Phone: Carbon Monoxide, Whole Blood on 02-15-2021 Carboxyhemoglobin (Bld) [Mass fraction] 8.0 % above high threshold 0.0-3.6 [facility] Work Phone: Comment on above: Environmental Exposu re: Nonsmokers <3.7 Smokers <9.9 Occupational Exposure: MICK 3.5 Detection Limit = 0.2 Complete Blood Count + Diffe rentialon 02-15-2021 Basophils/100 WBC (Bld) 0.3 % 0.0 - 2.0 M [facility] Work Phone: Erythrocyte distribution width (RBC) [Ratio] 13.7 % See Below [facility] Work Phone: Comment on above: Reference Range: 11. 5 - 14.5 Hematocrit (Bld) [Volume fraction] 49.4 % See Below [facility] Work Phone: Comment on above: Reference Range: 41. 0 - 52.0 Hemoglobin (Bld) [Mass/Vol] 16.5 g/dL See Below [facility] Work Phone: Comment on above: Reference Range: 13. 5 - 17.5 Lymphocytes/100 WBC (Bld) 9.5 % See Below [facility] Work Phone: Comment on above: Reference Range: 13. 0 - 44.0 MCHC (RBC) [Mass/Vol] 33.4 g/dL See Below [facility] Work Phone: Comment on above: Reference Range: 32. 0 - 36.0 MCV (RBC) [Entitic vol] 97 fL 80 - 100 M [facility] 1500 Work Phone: Monocytes/100 WBC (Bld) 2.9 % 2.0 - 10.0 M [facility] Work Phone: Neutrophils/100 WBC (Bld) 86.3 % See Below [facility] 1500 Work Phone: Comment on above: Reference Range: 40. 0 - 80.0 Platelets (Bld) [#/Vol] 158 10*3/uL 150 - 450 [facility] 1500 Work Phone: [phone] RBC (Bld) [#/Vol] 5.08 {x10E12/L} See Below [facility] 1500 Work Phone: [phone] Comment on above: Reference Range: 4.5 0 - 5.90 WBC (Bld) [#/Vol] 11.7 10*3/uL above high threshold 4.4 - 11.3 [facility] 1500 Work Phone: [phone] Complete Blood Count + Differential 0.03 {x10E9/L} See Below [facility] 1500 Work Phone: [phone] Comment on above: Reference Range: 0.0 0 - 0.10 Complete Blood Count + Differential 0.01 {x10E9/L} See Below [facility] 1500 Work Phone: [phone] Comment on above: Reference Range: 0.0 0 - 0.70 Complete Blood Count + Differential 0.34 {x10E9/L} See Below [facility] 1500 Work Phone: [phone] Comment on above: Reference Range: 0.1 0 - 1.00 Complete Blood Count + Differential 1.11 {x10E9/L} below low threshold See Below [facility] 1500 Work Phone: [phone] Comment on above: Reference Range: 1.2 0 - 4.80 Complete Blood Count + Differential 10.08 {x10E9/L} above high threshold See Below [facility] 1500 Work Phone: Comment on above: Reference Range: 1.2 0 - 7.70 Complete Blood Count + Differential 0.1 % 0.0 - 6.0 [facility] 1500 Work Phone: Complete Blood Count + Differential 0.9 % 0.0 - 0.9 [facility] 1500 Work Phone: Comment on above: Immature Granulocyte Count (IG) includes promyelocytes, myelocytes and metamyelocytes but does not include bands. Percent differential counts (%) should be interpreted in the context of the absolute cell counts (cells/L). Erythropoietin Assayon 02-15 Erythropoietin (EPO) Qn 7.6 {mIU/mL} 2.6-18.5 [facility] 1500 Work Phone: Comment on above: [employer] el DxI 800 Immunoassay SystemValues obtained with different assay methods or kits cannot be usedinterchangeably. Results cannot be interpreted as absolute evidenceof the presence or absence of malignant disease. Gamma Glutamyl Transferase, Serumon 02-15-2021 Gamma glutamyl transferase [Catalytic activity/Vol] 53 U/L 5 - 64 [facility] 1500 Work Phone: Immunoglobulin E Level, Seru mon 02-15-2021 IgE Qn 211 {IU/mL} 0 - 214 [facility] 1500 Work Phone: Laboratory - Chemistry and C hemistry - challengeon 02-15-2021 Albumin BCP dye [Mass/Vol] 4.5 g/dL 3.4 - 5.0 [facility] 1500 Work Phone: ALP [Catalytic activity/Vol] 66 U/L 33 - 136 [facility] 1500 Work Phone: ALT With P-5'-P [Catalytic activity/Vol] 21 U/L 10 - 52 [facility] 1500 Work Phone: Comment on above: Patients treated wit h Sulfasalazine may generate falsely decreased results for ALT. Anion gap [Moles/Vol] 11 mmol/L 10 - 20 [facility] 1500 Work Phone: AST With P-5'-P [Catalytic activity/Vol] 12 U/L 9 - 39 [facility] 1500 Work Phone: Bilirubin [Mass/Vol] 0.8 mg/dL 0.0 - 1.2 [facility] 1500 Work Phone: [phone] Calcium [Mass/Vol] 10.0 mg/dL 8.6 - 10.3 [facility] 1500 Work Phone: [phone] Chloride [Moles/Vol] 100 mmol/L 98 - 107 [facility] 1500 Work Phone: [phone] CO2 [Moles/Vol] 31 mmol/L 21 - 32 [facility] 1500 Work Phone: [phone] Creatinine [Mass/Vol] 1.02 mg/dL See Below [facility] 1500 Work Phone: [phone] Comment on above: Reference Range: 0.5 0 - 1.30 Glucose [Mass/Vol] 112 mg/dL above high threshold 74 - 99 [facility] 1500 Work Phone: [phone] Iron [Mass/Vol] 119 ug/dL 35 - 150 [facility] 1500 Work Phone: [phone] Iron binding capacity [Mass/Vol] 388 ug/dL 240 - 445 [facility] 1500 Work Phone: [phone] LDH [Catalytic activity/Vol] 156 U/L 84 - 246 [facility] 1500 Work Phone: [phone] Potassium [Moles/Vol] 4.4 mmol/L 3.5 - 5.3 [facility] 1500 Work Phone: [phone] Protein [Mass/Vol] 7.4 g/dL 6.4 - 8.2 [facility] 1500 Work Phone: [phone] Sodium [Moles/Vol] 138 mmol/L 136 - 145 [facility] 1500 Work Phone: [phone] Urea nitrogen [Mass/Vol] 14 mg/dL 6 - 23 [facility] 1500 Work Phone: [phone] No Panel Informationon 02-15 Not detected See Below [facility] 1500 Work Phone: Comment on above: Reference Range: NOT DETECTED.INTERPRETATION NOTES:A result of DETECTED corresponds to identification of JAK2 V617F mutation at a variant allele fraction (mutational burden) of greater than approximately 1%. A result of LOW LEVEL DETECTED corresponds to a JAK2 V617F variant allele fraction below 1%. The clinical significance of low-level JAK2 mutations are incompletely understood, especially when other clinical criteria for the diagnosis of myeloproliferative diseases are not met (Almanza C, et al. Haematologica. 2014;99(9):3037-4069. Yamilet E, et al. Haematologica. 2014;99(7):e943-i385.). Detection of the JAK2 V617F mutation at any level does not necessarily indicate a diagnosis of myeloproliferative or other myeloid neoplasm. Correlation with clinical, histopathologic, cytogenetic, and other laboratory findings is required for complete interpretation and to adequately inform treatment. In patients with a suspected myeloproliferative neoplasms the presence of a JAK2 V617F mutation meets the WHO major diagnostic criterion for establishing clonality. JAK2 V617F mutations may also be seen in myelodysplastic syndrome and other neoplasms. LIMITATIONS:The lower limit of detection of this assay is approximately 0.1% variant allele fraction. A result of NOT DETECTED does not preclude the presence of a JAK2 p.V617F mutation below the sensitivity of this assay due to low neoplastic cell content, tumor heterogeneity, or the presence of other JAK2 mutations which are outside of the target regions of this assay. The absence of a JAK2 mutation does not rule out the diagnosis of myeloproliferative neoplasms. METHODOLOGY:This assay tests for the presence of JAK2 ([id number]: [id number]) p.V617F mutation by competitive, allele-specific PCR. Nucleic acid extraction and testing is performed in the [facility] ([facility]) located at [address] [place] [address] (CLIA License #[id number], CAP #[id number]).DISCLAIMER: This test was developed and its analytical performance characteristics have been determined by [facility] ([facility]) part of the Department of Pathology at [facility]. This test has not been cleared or approved by the FDA; however, the FDA has determined that such approval is not necessary. The [facility] is CAP accredited and certified under the Clinical Laboratory Improvement Amendments of 1988 (CLIA-88) as qualified to perform high complexity testing. Reference Range: NOT DETECTEDMRN: [id number] PatientName: JULIA FRAZIER NOT DETECTED METHODOLOGY:RNA isolated from peripheral blood or bone marrow was reverse transcribedto cDNA. M-bcr (b2a2 and b3a2 aka p210 Major) or m-bcr (e1a2 aka p202Egdma) fusion transcripts are assessed by quantitative real-time PCR. TheABL1 gene is used as an internal control to normalize the amount of fusiontranscripts in a reaction; the Normalized Copy Number (NCN) is expressedas the ratio of fusion transcripts to ABL1 gene transcripts. Thesensitivity of this assay is between 02/999 and 1/10,000 NCN. For M-bcr,the international scale (IS) was calculated using a concurrently testedstandard sample and corresponding conversion factor. Testing was performedat [facility] ([facility]) located at [address] [place] [address] (CLIA License [id number], [place] [id number]). DISCLAIMER:This test was developed at [facility] ([id number], [place] [id number]). Testing was performed at [facility] ([facility]) located at [address] [place], [place] [address] [address] [place] [address] (CLIA License [id number], [place] [id number]). It has notbeen cleared or approved by the FDA. The FDA has determined that suchclearance or approval is not necessary. This test is used for clinicalpurposes. It should not be regarded as investigational or for research.This laboratory is certified under the Clinical Laboratory ImprovementAmendments of 1988 (CLIA-88) as qualified to perform high complexityclinical laboratory testing. SEE COMMENT [facility] 1500 Work Phone: Comment on above: Normal 2.9 % [facility] 1500 Work Phone: Comment on above: HGB A2 values may be falsely elevated in the presence of HGB S. 0.5 % [facility] 1500 Work Phone: 96.6 % [facility] 1500 Work Phone: 31 % 25 - 45 [facility] 1500 Work Phone: >60 >60 [facility] 1500 Work Phone: Comment on above: CALCULATIONS OF LILI MATED GFR ARE PERFORMED USING THE MDRD STUDY EQUATION FOR THE IDMS-TRACEABLE CREATININE METHODS. CLIN CHEM 2007;53:766-72 Path Review-HGB Identifleroy onon 02-15-2021 Path Review-HGB Identification MELVIN [facility] [address] Work Phone: Comment on above: By her/his signature above, the Pathologist listed as making the final interpretation certifies that she/he has personally reviewed this case. Reticulocyte Counton 021 Reticulocyte Count 38 pg 28 - 38 [facility] 1500 Work Phone: Reticulocyte Count 9.5 % 0.0 - 16.0 [facility] 1500 Work Phone: Reticulocyte Count 0.079 {x10E12/L} See Below [facility] 1500 Work Phone: Comment on above: Reference Range: 0.0 22 - 0.118 Reticulocyte Count 1.6 % 0.5 - 2.0 [facility] 1500 Work Phone: Sedimentation Rate, Erythroc yteon 02-15-2021 ESR (Bld) [Velocity] 14 mm/h 0 - 20 [facility] 1500 Work Phone: Uric Acid, Serumon Urate [Mass/Vol] 5.6 mg/dL 4.0 - 7.5 [facility] 1500 Work Phone: Comment on above: Venipuncture immedia tely after or during the administration of Metamizole may lead to falsely low results. Testing should be performed immediately prior to Metamizole dosing. IO UA (automated w/o microsc opy)on 01-25-2021 Protein (U) [Mass/Vol] Negative [place] [address] DO Work Phone: IO UA (automated w/o microscopy) Negative [place] [address] DO Work Phone: IO UA (automated w/o microscopy) Normal (0.2-1.0 mg/dl) -Urolog [place]Jason [place] [address] DO Work Phone: IO UA (automated w/o microscopy) 6.0 1 [place] [address] DO Work Phone: IO UA (automated w/o microscopy) Trace [place] [address] DO Work Phone: IO UA (automated w/o microscopy) 1.025 1 [place] [address] DO Work Phone: IO UA (automated w/o microscopy) Clear [place] [address] DO Work Phone: IO UA (automated w/o microscopy) Yellow [place] [address] DO Work Phone: IO Ultrasound, measurement p ost-void resid urine and/or bl cap; no imagon 01-25-2021 IO Ultrasound, measurement post-void resid urine and/or bl cap; no imag 324 ml/min [place] [address] DO Work Phone: Tobacco Screening.on 021 Fall risk assessment a) No falls within the last year [place] [address] DO Work [phone] Tobacco use status CPHS a) Yes M [place] [address] DO Work Phone: Tobacco Screening. Yes [place] [address] DO Work Phone: C-1 Esterase Inhibitor Total , Serumon 01-18-2021 Complement C1 esterase inhibitor [Mass/Vol] 37 mg/dL 21-39 [place] [address] DO Work Phone: [phone] C1 Esterase Inhibitor, Funct ionalon 01-18-2021 Complement C1 esterase inhibitor.functional/Co mplement C1 esterase inhibitor.total [Mass fraction] >91 [place] [address] DO Work Phone: [phone] Comment on above: Abnormal <41 Equivoc al 41 - 67 Normal >67 C4 Complement, Serumon 01-18 Complement C4 [Mass/Vol] 35 mg/dL 10 - 50 [place] [address] DO Work Phone: Laboratory - Chemistry and C hemistry - challengeon 01-18-2021 Albumin BCP dye [Mass/Vol] 4.6 g/dL 3.4 - 5.0 [place] [address] DO Work Phone: ALP [Catalytic activity/Vol] 91 U/L 33 - 136 [place] [address] DO Work Phone: ALT With P-5'-P [Catalytic activity/Vol] 24 U/L 10 - 52 [place] [address] DO Work Phone: Comment on above: Patients treated wit h Sulfasalazine may generate falsely decreased results for ALT. Anion gap [Moles/Vol] 17 mmol/L 10 - 20 [place] [address] DO Work Phone: AST With P-5'-P [Catalytic activity/Vol] 13 U/L 9 - 39 [place] [address] DO Work Phone: Bilirubin [Mass/Vol] 1.2 mg/dL 0.0 - 1.2 MP-U [place] [address] DO Work Phone: Calcium [Mass/Vol] 10.0 mg/dL 8.6 - 10.6 -[place] [address] DO Work Phone: Chloride [Moles/Vol] 98 mmol/L 98 - 107 MP-U [place] [address] DO Work Phone: CO2 [Moles/Vol] 28 mmol/L 21 - 32 -[place] [address] DO Work Phone: [phone] Creatinine [Mass/Vol] 1.11 mg/dL See Below [place] [address] DO Work Phone: [phone] Comment on above: Reference Range: 0.5 0 - 1.30 Glucose [Mass/Vol] 92 mg/dL 74 - 99 -[place] [address] DO Work Phone: [phone] IgA [Mass/Vol] 165 mg/dL 70 - 400 [place] [address] DO Work Phone: [phone] Comment on above: MONOCLONAL PROTEINS MAY CAUSE FALSELY LOWRESULTS IN THIS ASSAY. SERUM PROTEINELECTROPHORESIS SHOULD BE DONE THEFIRST TEST TO EVALUATE MONOCLONAL GAMMOPATHY. IgG [Mass/Vol] 1230 mg/dL 700 - 1600 [place] [address] DO Work Phone: [phone] Comment on above: MONOCLONAL PROTEINS MAY CAUSE FALSELY LOWRESULTS IN THIS ASSAY. SERUM PROTEINELECTROPHORESIS SHOULD BE DONE THEFIRST TEST TO EVALUATE MONOCLONAL GAMMOPATHY. IgM [Mass/Vol] 95 mg/dL 40 - 230 [place] [address] DO Work Phone: [phone] Comment on above: MONOCLONAL PROTEINS MAY CAUSE FALSELY LOWRESULTS IN THIS ASSAY. SERUM PROTEINELECTROPHORESIS SHOULD BE DONE THEFIRST TEST TO EVALUATE MONOCLONAL GAMMOPATHY. Potassium [Moles/Vol] 4.3 mmol/L 3.5 - 5.3 [place] [address] DO Work Phone: [phone] Sodium [Moles/Vol] 139 mmol/L 136 - 145 -[place] [address] DO Work Phone: [phone] Urea nitrogen [Mass/Vol] 15 mg/dL 6 - 23 [place] [address] DO Work Phone: [phone] Laboratory - Hematology and Cell countson 01-18-2021 Granulocytes/100 WBC (Bld) 82 % [place] [address] DO Work Phone: [phone] Lymphocytes/100 WBC (Bld) 11 % [place] [address] DO Work Phone: Monocytes/100 WBC (Bld) 4 % M [place] [address] DO Work Phone: No Panel Informationon 01-18 RAMYA [place] [address] DO Work Phone: Comment on above: By her/his signature above, the Pathologist listed as making the final interpretation certifies that she/he has personally reviewed this case. ACUTE PANEL [place] [address] DO Work Phone: WHOLE BLD-EDTA [place] [address] DO Work Phone: SEE BELOW [place] [address] DO Work Phone: Comment on above: This test is a multi color, whole blood lysis assay. It was developed and its performance characteristics determined by the Department of Pathology, [facility], and has not been cleared or approved by the U.S. Food and Drug Administration. The laboratory is regulated under CLIA as qualified to perform high complexity testing. This test is used for clinical purposes. It should not be regarded as investigational or for research. Immunophenotypic analysis was performed using the following antibodies: CD45, CD71, CD1c, CD304, CD34, CD14, CD20, CD10, CD38, CD19, CD15, CD117, CD33, HLADR, CD8, CD7, CD4, CD3, CDC56, CD13, CD5, CD2, CD177, CD163, CD11b, CD16, [place], Lambda, CD9, CD22. No increased or abno rmal myeloblast population detected.No immunophenotypic abnormalities of monocytes or granulocytes.No immunophenotypic evidence of a lymphoproliferative disorder. 18 {%_of_Lymph} [place] [address] DO Work Phone: Comment on above: PolyclonalKappa/Varela da= 58:42 13 {%_of_Lymph} [place] [address] DO Work Phone: [phone] {%_of_Lymph} -Urolog y- [facility] 232 DO Work Phone: [phone] 100,000 -Urology- [facility] 232 DO Work Phone: [phone] 12.85 {x10E9/L} -Urolog y- [facility] 232 DO Work Phone: [phone] Acceptable -Urology- [facility] 232 DO Work Phone: [phone] Comment on above: Flow cytometry resul ts should be interpreted in the context of morphology. Flow cytometry findings may be unreliable due to sampling issues, differential loss or recovery of cell populations ex vivo, or low viability. Peripheral Blood -Urolo gy- [place] [address] DO Work Phone: [phone] 1.27 1 See Below [facility] 232 DO Work Phone: [phone] Comment on above: Reference Range: 0.2 6 - 1.65 Undetected antigen excess is a rare event but cannot be excluded. If these free light chain results do not agree with other clinical or laboratory findings, or if the sample is from a patient that has previously demonstrated antigen excess, the result must be checked by retesting at a higher sample dilution. Results should always be interpreted in conjunction with other laboratory tests and clinical evidence; any anomalies should be discussed with the testing laboratory. 1.50 mg/dL See Below [facility] [place] [address] DO Work Phone: Comment on above: Reference Range: 0.5 7 - 2.63 1.91 mg/dL See Below [facility] 232 DO Work Phone: [phone] Comment on above: Reference Range: 0.3 3 - 1.94 >60 >60 -UrologyJason [place] [address] DO Work Phone: Comment on above: CALCULATIONS OF LILI MATED GFR ARE PERFORMED USING THE MDRD STUDY EQUATION FOR THE IDMS-TRACEABLE CREATININE METHODS. CLIN CHEM 2007;53:766-72 PROTEIN ELECTROPHORESIS,SERU 01-18-2021 Albumin [Mass/Vol] 4.4 g/dL 3.4 - 5.0 -Uro logy- [facility] 232 DO Work Phone: [phone] Protein [Mass/Vol] 7.5 g/dL 6.4 - 8.2 -Uro [place]yJason [place] [address] DO Work Phone: [phone] PROTEIN ELECTROPHORESIS,SERUM NORMAL [place] [address] DO Work Phone: [phone] PROTEIN ELECTROPHORESIS,SERUM 1.1 g/dL 0.5 - 1.4 [place] [address] DO Work Phone: [phone] PROTEIN ELECTROPHORESIS,SERUM 0.8 g/dL 0.5 - 1.2 [place] [address] DO Work Phone: [phone] PROTEIN ELECTROPHORESIS,SERUM 0.9 g/dL 0.4 - 1.1 [place] [address] DO Work Phone: [phone] PROTEIN ELECTROPHORESIS,SERUM 0.3 g/dL 0.2 - 0.6 [place] [address] DO Work Phone: Path Review Blake 01-18-2021 Path Review JOSE SHEETS [place] [address] DO Work Phone: Comment on above: By her/his signature above, the Pathologist listed as making the final interpretation certifies that she/he has personally reviewed this case. C Reactive Protein, Serumon 12-28-2020 CRP [Mass/Vol] 0.12 mg/dL [place] [address] DO Work Phone: [phone] Comment on above: REF VALUE< 1.00 C-1 Esterase Inhibitor Total , Serumon 12-28-2020 Complement C1 esterase inhibitor [Mass/Vol] 31 mg/dL 21-39 [place] [address] DO Work Phone: [phone] C1 Esterase Inhibitor, Funct ionalon 12-28-2020 Complement C1 esterase inhibitor.functional/Co mplement C1 esterase inhibitor.total [Mass fraction] 84 {%mean_normal} [place] [address] DO Work Phone: [phone] Comment on above: Abnormal <41 Equivoc al 41 - 67 Normal >67 C4 Complement, Serumon 12-28 Complement C4 [Mass/Vol] 25 mg/dL 10 - 50 [place] [address] DO Work Phone: [phone] Complete Blood Count + Diffe rentialon 12-28-2020 Basophils/100 WBC (Bld) 0.1 % 0.0 - 2.0 M [place] [address] DO Work Phone: [phone] Erythrocyte distribution width (RBC) [Ratio] 13.7 % See Below [place] [address] DO Work Phone: [phone] Comment on above: Reference Range: 11. 5 - 14.5 Hematocrit (Bld) [Volume fraction] 48.7 % See Below [place] [address] DO Work Phone: Comment on above: Reference Range: 41. 0 - 52.0 Hemoglobin (Bld) [Mass/Vol] 16.3 g/dL See Below [place] [address] DO Work Phone: [phone] Comment on above: Reference Range: 13. 5 - 17.5 Lymphocytes/100 WBC (Bld) 12.8 % See Below [place] [address] DO Work Phone: Comment on above: Reference Range: 13. 0 - 44.0 MCHC (RBC) [Mass/Vol] 33.5 g/dL See Below [place] [address] DO Work Phone: Comment on above: Reference Range: 32. 0 - 36.0 MCV (RBC) [Entitic vol] 99 fL 80 - 100 M [place] [address] DO Work Phone: Monocytes/100 WBC (Bld) 3.1 % 2.0 - 10.0 M [place] [address] DO Work Phone: Neutrophils/100 WBC (Bld) 83.2 % See Below [place] [address] DO Work Phone: Comment on above: Reference Range: 40. 0 - 80.0 Platelets (Bld) [#/Vol] 151 10*3/uL 150 - 450 [place] [address] DO Work Phone: [phone] RBC (Bld) [#/Vol] 4.94 {x10E12/L} See Below [place] [address] DO Work Phone: [phone] Comment on above: Reference Range: 4.5 0 - 5.90 WBC (Bld) [#/Vol] 7.4 10*3/uL 4.4 - 11.3 [place] [address] DO Work Phone: [phone] Complete Blood Count + Differential 0.7 % 0.0 - 0.9 [place] [address] DO Work Phone: Comment on above: Immature Granulocyte Count (IG) includes promyelocytes, myelocytes and metamyelocytes but does not include bands. Percent differential counts (%) should be interpreted in the context of the absolute cell counts (cells/L). Complete Blood Count + Differential 0.01 {x10E9/L} See Below [place] [address] DO Work Phone: Comment on above: Reference Range: 0.0 0 - 0.10 Reference Range: 0.0 0 - 0.70 Complete Blood Count + Differential 0.23 {x10E9/L} See Below [place] [address] DO Work Phone: Comment on above: Reference Range: 0.1 0 - 1.00 Complete Blood Count + Differential 0.95 {x10E9/L} below low threshold See Below [place] [address] DO Work Phone: [phone] Comment on above: Reference Range: 1.2 0 - 4.80 Complete Blood Count + Differential 6.17 {x10E9/L} See Below [place] [address] DO Work Phone: [phone] Comment on above: Reference Range: 1.2 0 - 7.70 Complete Blood Count + Differential 0.1 % 0.0 - 6.0 [place] [address] DO Work Phone: Ferritin, Serumon 12-28-2020 Ferritin [Mass/Vol] 360 ug/L above high threshold 20 - 300 MP-UrologyJason [place] [address] DO Work Phone: Fibrinogen Assayon Fibrinogen Assay 330 mg/dL 200 - 400 -[facility] [place] [address] DO Work Phone: Immunoglobulin E Level, Seru mon 12-28-2020 IgE Qn 388 {IU/mL} above high threshold 0 - 214 -UrologyJason [place] [address] DO Work Phone: [phone] Laboratory - Chemistry and C hemistry - challengeon 12-28-2020 Albumin BCP dye [Mass/Vol] 4.6 g/dL 3.4 - 5.0 [facility]rology[facility] [address] DO Work Phone: ALP [Catalytic activity/Vol] 54 U/L 33 - 136 [facility]ITAL[facility]rologyJason [facility] [address] DO Work Phone: ALT With P-5'-P [Catalytic activity/Vol] 24 U/L 10 - 52 [facility]rologyJason [facility] [address] DO Work Phone: [phone] Comment on above: Patients treated wit h Sulfasalazine may generate falsely decreased results for ALT. Anion gap [Moles/Vol] 13 mmol/L 10 - 20 [facility] [place] [address] DO Work Phone: AST With P-5'-P [Catalytic activity/Vol] 17 U/L 9 - 39 -UrologyJason Ville [address] DO Work Phone: Bilirubin [Mass/Vol] 0.7 mg/dL 0.0 - 1.2 [facility] [address] DO Work Phone: Calcium [Mass/Vol] 9.6 mg/dL 8.6 - 10.3 -Uro logyJason Ville [address] DO Work Phone: Chloride [Moles/Vol] 104 mmol/L 98 - 107 [facility] [address] DO Work Phone: CO2 [Moles/Vol] 27 mmol/L 21 - 32 [place] [address] DO Work Phone: [phone] Creatinine [Mass/Vol] 0.99 mg/dL See Below [place] [address] DO Work Phone: [phone] Comment on above: Reference Range: 0.5 0 - 1.30 Glucose [Mass/Vol] 117 mg/dL above high threshold 74 - 99 [place] [address] DO Work Phone: IgA [Mass/Vol] 154 mg/dL 70 - 400 [place] [address] DO Work Phone: Comment on above: MONOCLONAL PROTEINS MAY CAUSE FALSELY LOWRESULTS IN THIS ASSAY. SERUM PROTEINELECTROPHORESIS SHOULD BE DONE THEFIRST TEST TO EVALUATE MONOCLONAL GAMMOPATHY. IgG [Mass/Vol] 1120 mg/dL 700 - 1600 [place] [address] DO Work Phone: Comment on above: MONOCLONAL PROTEINS MAY CAUSE FALSELY LOWRESULTS IN THIS ASSAY. SERUM PROTEINELECTROPHORESIS SHOULD BE DONE THEFIRST TEST TO EVALUATE MONOCLONAL GAMMOPATHY. IgM [Mass/Vol] 91 mg/dL 40 - 230 [place] [address] DO Work Phone: Comment on above: MONOCLONAL PROTEINS MAY CAUSE FALSELY LOWRESULTS IN THIS ASSAY. SERUM PROTEINELECTROPHORESIS SHOULD BE DONE THEFIRST TEST TO EVALUATE MONOCLONAL GAMMOPATHY. Iron [Mass/Vol] 80 ug/dL 35 - 150 [place] [address] DO Work Phone: Iron binding capacity [Mass/Vol] 391 ug/dL 240 - 445 [place] [address] DO Work Phone: LDH [Catalytic activity/Vol] 155 U/L 84 - 246 [place] [address] DO Work Phone: Potassium [Moles/Vol] 4.3 mmol/L 3.5 - 5.3 [place] [address] DO Work Phone: Sodium [Moles/Vol] 140 mmol/L 136 - 145 MP-Uro logDaniel Ville [address] DO Work Phone: Thyroglobulin [Mass/Vol] Not Applicable 1.3-31.8 [place] [address] DO Work Phone: Comment on above: INTERPRETIVE INFORMA TION: Thyroglobulin by LC-MS/MS, Serum/PlasmaLower limit of detection for Thyroglobulin by LC-MS/MS is 0.5 ng/mL.This test was developed and its performance characteristics determined by [facility]. It has not been cleared or approved by the [place] Food and Drug Administration. This test was performed in a CLIA certified laboratory and is intended for clinical purposes.Performed By: [facility] [place] [id number] Director: Jazlyn Lau MD Thyroglobulin [Mass/Vol] <0.1 below low threshold 1.3-31.8 [place] [address] DO Work Phone: Comment on above: INTERPRETIVE INFORMA TION: Thyroglobulin, Serum or PlasmaSpecimens negative for thyroglobulin antibodies (TgAb) are tested for thyroglobulin (Tg) by chemiluminescent immunoassay (MERY) using the Dre Davis Access DxI method. Specimens with TgAb results above the upper reference limit are tested for Tg by high-performance liquid chromatography-tandem mass spectrometry (LC-MS/MS). Results obtained with different test methods or kits cannot be used interchangeably. Tg results, regardless of concentration, should not be interpreted as absolute evidence for the presence or absence of papillary or follicular thyroid cancer. Tg testing is not recommended for use as a screening procedure to detect the presence of thyroid cancer in the general population. Urea nitrogen [Mass/Vol] 20 mg/dL 6 - 23 [place] [address] DO Work Phone: Laboratory - Coagulationon 1 02-28-2020 aPTT Coag (PPP) [Time] 23 s below low threshold 25 - 35 [place] [address] DO Work Phone: Comment on above: THE APTT IS NO LONGE R USED FOR MONITORING UNFRACTIONATED HEPARIN THERAPY. FOR MONITORING HEPARIN THERAPY, USE THE HEPARIN ASSAY. Fibrin D-dimer DDU (PPP) [Mass/Vol] 462 {ng/mL_FEU} = 500 [place] [address] DO Work Phone: Comment on above: THE D-DIMER ASSAY IS REPORTED IN NG/ML FIBRINOGEN EQUIVALENT UNITS (FEU).THE RESULTS OF THIS ASSAY SHOULD NOT BE USED FOR THE EXCLUSION OF DEEP VEIN THROMBOSIS AND/OR PULMONARY EMBOLISM. INR Coag (PPP) [Relative time] 0.9 {INR} 0.9 - 1.1 [place] [address] DO Work Phone: PT Coag (PPP) [Time] 10.8 s See Below MP-U [place] [address] DO Work Phone: Comment on above: Reference Range: 10. 1 - 13.3 Laboratory - Serology - non- microon 12-28-2020 Centromere protein B Ab Qn (S) <0.2 [place] [address] DO Work Phone: Comment on above: REF VALUES < 1.0 = N EGATIVE >=1.0 = POSITIVE Chromatin Ab Qn <0.2 [place] [address] DO Work Phone: Comment on above: REF VALUES < 1.0 = N EGATIVE >=1.0 = POSITIVE DNA double strand Ab Qn (S) [IU]/mL [place] [address] DO Work Phone: Comment on above: REF VALUESNEGATIVE: <= 4 IU/MLEQUIVOCAL: 5- 9 IU/MLPOSITIVE: >=10 IU/ML Medina-1 extractable nuclear Ab IA Ql (S) <0.2 [place] [address] DO Work Phone: Comment on above: REF VALUES < 1.0 = N EGATIVE >=1.0 = POSITIVE Nuclear Ab Hep2 substrate Ql (S) Positive Abnormal NEGATIVE [place] [address] DO Work Phone: Comment on above: The Antinuclear Anti body (SHI) test was performed using indirect immunofluorescence assay with HEp-2 cells slide. Nuclear Ab IF (S) [Titer] 1:160 [place] [address] DO Work Phone: Nuclear Ab pattern (S) [Interp] NUCLEOLAR [place] [address] DO Work Phone: Ribonucleoprotein extractable nuclear Ab IA Qn (S) <0.2 [place] [address] DO Work Phone: Comment on above: REF VALUES < 1.0 = N EGATIVE >=1.0 = POSITIVE Ribosomal P Ab Qn (S) <0.2 [place] [address] DO Work Phone: Comment on above: REF VALUES < 1.0 = N EGATIVE >=1.0 = POSITIVE SCL-70 extractable nuclear Ab IA Ql (S) <0.2 [place] [address] DO Work Phone: Comment on above: REF VALUES < 1.0 = N EGATIVE >=1.0 = POSITIVE Sjogrens syndrome-A extractable nuclear Ab IA Qn (S) <0.2 [place] [address] DO Work Phone: Comment on above: REF VALUES < 1.0 = N EGATIVE >=1.0 = POSITIVE Sjogrens syndrome-B extractable nuclear Ab IA Qn (S) 0.3 {AI} [place] [address] DO Work Phone: Comment on above: REF VALUES < 1.0 = N EGATIVE >=1.0 = POSITIVE Mojica extractable nuclear Ab IA Qn (S) <0.2 [place] [address] DO Work Phone: Comment on above: REF VALUES < 1.0 = N EGATIVE >=1.0 = POSITIVE Mojica extractable nuclear Ab+Ribonucleoprotein extractable nuclear Ab IA Ql (S) <0.2 [place] [address] DO Work Phone: Comment on above: REF VALUES < 1.0 = N EGATIVE >=1.0 = POSITIVE Thyroglobulin Ab Qn [IU]/mL 0.0-4.0 Kellie [place] [address] DO Work Phone: Comment on above: INTERPRETIVE INFORMA TION: Thyroglobulin Antibody A value of 4.0 IU/mL or less indicates a negative result for thyroglobulin antibodies.The Thyroglobulin Antibody assay is being performed using the Keemotion Access DxI method. MISCELLANEOUS TESTon 021 MISCELLANEOUS TEST Canceled -Uro [facility] 232 DO Work Phone: No Panel Informationon 12-28 1.11 1 See Below [facility]rologyPro[facility] 232 DO Work Phone: Comment on above: Reference Range: 0.2 6 - 1.65 Undetected antigen excess is a rare event but cannot be excluded. If these free light chain results do not agree with other clinical or laboratory findings, or if the sample is from a patient that has previously demonstrated antigen excess, the result must be checked by retesting at a higher sample dilution. Results should always be interpreted in conjunction with other laboratory tests and clinical evidence; any anomalies should be discussed with the testing laboratory. 1.49 mg/dL See Below [facility]rolog[facility] [place] Work Phone: Comment on above: Reference Range: 0.5 7 - 2.63 1.66 mg/dL See Below [facility] 232 DO Work Phone: Comment on above: Reference Range: 0.3 3 - 1.94 20 % below low threshold 25 - 45 [facility] 232 DO Work Phone: >60 >60 -[facility] 232 DO Work Phone: Comment on above: CALCULATIONS OF LILI MATED GFR ARE PERFORMED USING THE MDRD STUDY EQUATION FOR THE IDMS-TRACEABLE CREATININE METHODS. CLIN CHEM 2007;[id number]:766-72 PROTEIN ELECTROPHORESIS,SERU 12-28-2020 Albumin [Mass/Vol] 4.6 g/dL 3.4 - 5.0 -Uro [facility] 232 DO Work Phone: Protein [Mass/Vol] 7.4 g/dL 6.4 - 8.2 -Uro [facility] 232 DO Work Phone: PROTEIN ELECTROPHORESIS,SERUM NORMAL [place] [address] DO Work Phone: PROTEIN ELECTROPHORESIS,SERUM 1.0 g/dL 0.5 - 1.4 [place] [address] DO Work Phone: PROTEIN ELECTROPHORESIS,SERUM 0.8 g/dL 0.5 - 1.2 [place] [address] DO Work Phone: PROTEIN ELECTROPHORESIS,SERUM 0.7 g/dL 0.4 - 1.1 [place] [address] DO Work Phone: PROTEIN ELECTROPHORESIS,SERUM 0.3 g/dL 0.2 - 0.6 [place] [address] DO Work Phone: Path Review JOSEon 12-28-2020 Path Review JOSE SHEETS [place] [address] DO Work Phone: Comment on above: By her/his signature above, the Pathologist listed as making the final interpretation certifies that she/he has personally reviewed this case. Prostate Specific Antigenon 12-28-2020 Prostate specific Ag [Mass/Vol] 0.37 ng/mL See Below [place] [address] DO Work Phone: Comment on above: Reference Range: 0.0 0 - 4.00The FDA requires that the method used for PSA assay be reported to the physician. Values obtained with different assay methods must not be used interchangeably. This test was performed at [facility] using the Jobzle PSA method, which is a sandwich immunoassay using chemiluminescence for quantitation. The assay is approvedfor measurement of prostate-specific antigen (PSA) in serum and may be used in conjunction with a digital rectalexamination in men 50 years and older as an aid in detection of prostate cancer. 0-Cuyrz-cpktwrlcu inhibitors (e.g. Proscar, Finasteride, Avodart, Dutasteride and Nazia) for the treatment of BPH have been shown to lower PSA levels by an average of 50% after 6 months of treatment. Reticulocyte Counton 021 Reticulocyte Count 39 pg above high threshold 28 - 38 [facility]ITALUrologDaniel Ville [address] DO Work Phone: Reticulocyte Count 10.2 % 0.0 - 16.0 -Uro [place] [address] DO Work Phone: Reticulocyte Count 0.063 {x10E12/L} See Below [place] [address] DO Work Phone: Comment on above: Reference Range: 0.0 22 - 0.118 Reticulocyte Count 1.3 % 0.5 - 2.0 -Uro [place] [address] DO Work Phone: Sedimentation Rate, Erythroc yteon 12-28-2020 ESR (Bld) [Velocity] 12 mm/h 0 - 20 MP-U [place] [address] DO Work Phone: T4 - Free Thyroxine, Serumon 12-28-2020 Free T4 [Mass/Vol] 1.76 ng/dL above high threshold See Below [place] [address] DO Work Phone: Comment on above: Reference Range: 0.7 8 - 1.48 Thyroxine Free testing is performed using different testing methodology at [facility] than at other [facility]. Direct result comparisons should only be made within the same method. TSH - Thyroid Stimulating Ho rmone, Serumon 12-28-2020 TSH Qn 1.32 m[IU]/L See Below [place] [address] DO Work Phone: Comment on above: Reference Range: 0.4 4 - 3.98 TSH testing is performed using different testing methodology at [facility] than at other [facility]. Direct result comparisons should only be made within the same method. Triiodothyronine, Level (T3) on 12-28-2020 T3 [Mass/Vol] 113 ng/dL 60 - 200 [place] [address] DO Work Phone: Influenza virus A and B and SARS-CoV-2 (COVID-19) Ag panel - Upper respiratory specim SARS-CoV-2 (COVID-19) RNA YOLY+probe Ql (Resp) [facility] Work Phone: RSV Ag EIA RSV Ag Immune stain Ql (Tiss) [facility] Work Phone: Vital Signs Date Time Vital Sign Value Performing Clinician Facility 09-02-2024 08:43-0400 Body mass index (BMI) [Ratio] 30.2 kg/m2 Dr. Biju Lobo DO Work Phone: [facility] 09-02-2024 08:43-0400 Body temperature 97.6 [degF] Dr. Biju Lobo DO Work Phone: [facility] 09-02-2024 08:43-0400 Body weight 92.[address] Biju Lobo DO Work Phone: [facility] 09-02-2024 08:43-0400 Diastolic blood pressure 84 mm[Hg] Dr. Biju Lobo DO Work Phone: [facility] 09-02-2024 08:43-0400 Heart rate 74 /min Dr. Biju Lobo DO Work Phone: [facility] 09-02-2024 08:43-0400 Respiratory rate 20 /min Dr. Biju Lobo DO Work Phone: [facility] 09-02-2024 08:43-0400 SaO2% (BldA) [Mass fraction] 94 % Dr. Biju Lobo DO Work Phone: [facility] 09-02-2024 08:43-0400 Systolic blood pressure 120 mm[Hg] Dr. Biju Lobo DO Work Phone: [facility] 07-23-2024 17:26-0400 Diastolic blood pressure 76 mm[Hg] Dr. Biju Lobo DO Work Phone: [facility] 07-23-2024 17:26-0400 Systolic blood pressure 106 mm[Hg] Dr. Biju Lobo DO Work Phone: [facility] 07-23-2024 11:41-0400 Body temperature 98.6 [degF] Dr. Biju Lobo DO Work Phone: [facility] 07-23-2024 11:41-0400 Body weight 92.[address] Biju Lobo DO Work Phone: [facility] 07-23-2024 11:41-0400 Diastolic blood pressure 81 mm[Hg] Dr. Biju Lobo DO Work Phone: [facility] 07-23-2024 11:41-0400 Heart rate 85 /min Dr. Biju Lobo DO Work Phone: [facility] 07-23-2024 11:41-0400 Respiratory rate 17 /min Dr. Biju Lobo DO Work Phone: [facility] 07-23-2024 11:41-0400 SaO2% (BldA) [Mass fraction] 94 % Dr. Biju Lobo DO Work Phone: [facility] 07-23-2024 11:41-0400 Systolic blood pressure 130 mm[Hg] Dr. Biju Lobo DO Work Phone: [facility] 07-15-2024 08:22-0400 Body mass index (BMI) [Ratio] 29.9 kg/m2 Dr. Biju Lobo DO Work Phone: [facility] 07-15-2024 08:22-0400 Body temperature 97.8 [degF] Dr. Biju Lobo DO Work Phone: [facility] 07-15-2024 08:22-0400 Body weight 92.[address] Biju Lobo DO Work Phone: [facility] 07-15-2024 08:22-0400 Diastolic blood pressure 83 mm[Hg] Dr. Biju Lobo DO Work Phone: [facility] 07-15-2024 08:22-0400 Heart rate 78 /min Dr. Biju Lobo DO Work Phone: [facility] 07-15-2024 08:22-0400 Respiratory rate 20 /min Dr. Biju Lobo DO Work Phone: [facility] 07-15-2024 08:22-0400 SaO2% (BldA) [Mass fraction] 94 % Dr. Biju Lobo DO Work Phone: [facility] 07-15-2024 08:22-0400 Systolic blood pressure 126 mm[Hg] Dr. Biju Lobo DO Work Phone: [facility] 07-02-2024 12:51-0400 Body height 175.[address] Biju Lobo DO Work Phone: [facility] 07-02-2024 12:51-0400 Body weight 90.[address] Biju Lobo DO Work Phone: [facility] 07-02-2024 12:51-0400 Heart rate 85 /min Dr. Biju Lobo DO Work Phone: [facility] 07-02-2024 12:51-0400 SaO2% (BldA) [Mass fraction] 91 % Dr. Biju Lobo DO Work Phone: [facility] 06-24-2024 10:59-0400 Body height 175.3 cm Abbie Galvan MD Work Phone: [facility] 06-24-2024 10:59-0400 Body mass index (BMI) [Ratio] 30.42 kg/m2 Abbie Galvan MD Work Phone: [facility] 06-24-2024 10:59-0400 Body weight 93.44 kg Abbie Galvan MD Work Phone: [facility] 06-24-2024 10:59-0400 Diastolic blood pressure 69 mm[Hg] Abbie Galvan MD Work Phone: [facility] 06-24-2024 10:59-0400 Heart rate 80 /min Abbie Galvan MD Work Phone: [facility] 06-24-2024 10:59-0400 Respiratory rate 18 /min Abbie Galvan MD Work Phone: [facility] 06-24-2024 10:59-0400 SaO2% (BldA) [Mass fraction] 94 % Abbie Galvan MD Work Phone: [facility] 06-24-2024 10:59-0400 Systolic blood pressure 112 mm[Hg] Abbie Galvan MD Work Phone: [facility] 05-27-2024 08:22-0400 Body height 175.[address] Biju Lobo DO Work Phone: [facility] 05-27-2024 08:22-0400 Body mass index (BMI) [Ratio] 29 kg/m2 Dr. Biju Lobo DO Work Phone: [facility] 05-27-2024 08:22-0400 Body temperature 97.5 [degF] Dr. Biju Lobo DO Work Phone: [facility] 05-27-2024 08:22-0400 Body weight 89.[address] Biju Lobo DO Work Phone: [facility] 05-27-2024 08:22-0400 Diastolic blood pressure 82 mm[Hg] Dr. Biju Lobo DO Work Phone: [facility] 05-27-2024 08:22-0400 Heart rate 78 /min Dr. Biju Lobo DO Work Phone: [facility] 05-27-2024 08:22-0400 Respiratory rate 18 /min Dr. Biju Lobo DO Work Phone: [facility] 05-27-2024 08:22-0400 SaO2% (BldA) [Mass fraction] 98 % Dr. Biju Lobo DO Work Phone: [facility] 05-27-2024 08:22-0400 Systolic blood pressure 121 mm[Hg] Dr. Biju Lobo DO Work Phone: [facility] 05-26-2024 13:30-0400 Diastolic blood pressure 64 mm[Hg] Dr. Biju Lobo DO Work Phone: [facility] 05-26-2024 13:30-0400 Heart rate 86 /min Dr. Biju Lobo DO Work Phone: [facility] 05-26-2024 13:30-0400 Systolic blood pressure 89 mm[Hg] Dr. Biju Lobo DO Work Phone: [facility] 05-26-2024 13:02-0400 Body mass index (BMI) [Ratio] 29.3 kg/m2 Dr. Biju Lobo DO Work Phone: [facility] 05-26-2024 13:02-0400 Body temperature 98.2 [degF] Dr. Biju Lobo DO Work Phone: [facility] 05-26-2024 13:02-0400 Body weight 90.[address] Biju Lobo DO Work Phone: [facility] 05-26-2024 13:02-0400 Respiratory rate 16 /min Dr. Biju Lobo DO Work Phone: [facility] 05-26-2024 13:02-0400 SaO2% (BldA) [Mass fraction] 93 % Dr. Biju Lobo DO Work Phone: [facility] 04-15-2024 09:07-0500 Body mass index (BMI) [Ratio] 28.9 kg/m2 Dr. Biju Lobo DO Work Phone: [facility] 04-15-2024 09:07-0500 Body temperature 97.2 [degF] Dr. Biju Lobo DO Work Phone: [facility] 04-15-2024 09:07-0500 Body weight 88.[address] Biju Lobo DO Work Phone: [facility] 04-15-2024 09:07-0500 Diastolic blood pressure 84 mm[Hg] Dr. Biju Lobo DO Work Phone: [facility] 04-15-2024 09:07-0500 Heart rate 87 /min Dr. Biju Lobo DO Work Phone: [facility] 04-15-2024 09:07-0500 Respiratory rate 18 /min Dr. Biju Lobo DO Work Phone: [facility] 04-15-2024 09:07-0500 SaO2% (BldA) [Mass fraction] 96 % Dr. Biju Lobo DO Work Phone: [facility] 04-15-2024 09:07-0500 Systolic blood pressure 125 mm[Hg] Dr. Biju Lobo DO Work Phone: [facility] 04-01-2024 08:41-0500 Body mass index (BMI) [Ratio] 29.9 kg/m2 Dr. Biju Lobo DO Work Phone: [facility] 04-01-2024 08:41-0500 Body weight 92.[address] Biju Lobo DO Work Phone: [facility] 04-01-2024 08:41-0500 Diastolic blood pressure 62 mm[Hg] Dr. Biju Lobo DO Work Phone: [facility] 04-01-2024 08:41-0500 Heart rate 91 /min Dr. Biju Lobo DO Work Phone: [facility] 04-01-2024 08:41-0500 Respiratory rate 18 /min Dr. Biju Lobo DO Work Phone: [facility] 04-01-2024 08:41-0500 Systolic blood pressure 93 mm[Hg] Dr. Biju Lobo DO Work Phone: [facility] 03-25-2024 10:56-0500 Body height 175.3 cm Abbie Galvan MD Work Phone: [facility] 03-25-2024 10:56-0500 Body mass index (BMI) [Ratio] 28.65 kg/m2 Abbie Galvan MD Work Phone: [facility] 03-25-2024 10:56-0500 Body temperature 98.1 [degF] Abbie Galvan MD Work Phone: [facility] 03-25-2024 10:56-0500 Body weight 88 kg Abbie Galvan MD Work Phone: [facility] 03-25-2024 10:56-0500 Diastolic blood pressure 57 mm[Hg] Abbie Galvan MD Work Phone: [facility] 03-25-2024 10:56-0500 Heart rate 91 /min Abbie Galvan MD Work Phone: [facility] 03-25-2024 10:56-0500 Respiratory rate 16 /min Abbie Galvan MD Work Phone: [facility] 03-25-2024 10:56-0500 SaO2% (BldA) [Mass fraction] 94 % Abbie Galvan MD Work Phone: [facility] 03-25-2024 10:56-0500 Systolic blood pressure 91 mm[Hg] Abbie Galvan MD Work Phone: [facility] 03-16-2024 13:57-0500 Diastolic blood pressure 62 mm[Hg] Dr. Biju Lobo DO Work Phone: [facility] 03-16-2024 13:57-0500 Systolic blood pressure 86 mm[Hg] Dr. Biju Lobo DO Work Phone: [facility] 03-16-2024 11:35-0500 Body height 175.[address] Biju Lobo DO Work Phone: [facility] 03-16-2024 11:35-0500 Body mass index (BMI) [Ratio] 27.8 kg/m2 Dr. Biju Lobo DO Work Phone: [facility] 03-16-2024 11:35-0500 Body temperature 98.4 [degF] Dr. Biju Lobo DO Work Phone: [facility] 03-16-2024 11:35-0500 Body weight 85.[address] Biju Lobo DO Work Phone: [facility] 03-16-2024 11:35-0500 Heart rate 87 /min Dr. Biju Lobo DO Work Phone: [facility] 03-16-2024 11:35-0500 Respiratory rate 16 /min Dr. Biju Lobo DO Work Phone: [facility] 03-16-2024 11:35-0500 SaO2% (BldA) [Mass fraction] 98 % Dr. Biju Lobo DO Work Phone: [facility] 03-08-2024 17:48-0500 Body temperature 97.5 [degF] Dr. Biju Lobo DO Work Phone: [facility] 03-08-2024 17:48-0500 Diastolic blood pressure 95 mm[Hg] Dr. Biju Lobo DO Work Phone: [facility] 03-08-2024 17:48-0500 Heart rate 89 /min Dr. Biju Lobo DO Work Phone: [facility] 03-08-2024 17:48-0500 Respiratory rate 24 /min Dr. Biju Lobo DO Work Phone: [facility] 03-08-2024 17:48-0500 SaO2% (BldA) [Mass fraction] 93 % Dr. Biju Lobo DO Work Phone: [facility] 03-08-2024 17:48-0500 Systolic blood pressure 138 mm[Hg] Dr. Biju Lobo DO Work Phone: [facility] 03-08-2024 15:47-0500 Inhaled oxygen flow rate 3 L/min Dr. Biju Lobo DO Work Phone: [facility] 03-08-2024 15:26-0500 Body mass index (BMI) [Ratio] 28.2 kg/m2 Dr. Biju Lobo DO Work Phone: [facility] 03-08-2024 15:26-0500 Body weight 86.[address] Biju Lobo DO Work Phone: [facility] 12-27-2023 10:57-0500 Body height 175.3 cm Abbie Galvan MD Work Phone: [facility] 12-27-2023 10:57-0500 Body mass index (BMI) [Ratio] 27.47 kg/m2 Abbie Galvan MD Work Phone: [facility] 12-27-2023 10:57-0500 Body temperature 98.29 [degF] Abbie Galvan MD Work Phone: [facility] 12-27-2023 10:57-0500 Body weight 84.37 kg Abbie Galvan MD Work Phone: [facility] 12-27-2023 10:57-0500 Diastolic blood pressure 75 mm[Hg] Abbie Galvan MD Work Phone: [facility] 12-27-2023 10:57-0500 Heart rate 74 /min Abbie Galvan MD Work Phone: [facility] 12-27-2023 10:57-0500 Respiratory rate 16 /min Abbie Galvan MD Work Phone: [facility] 12-27-2023 10:57-0500 SaO2% (BldA) [Mass fraction] 95 % Abbie Galvan MD Work Phone: [facility] 12-27-2023 10:57-0500 Systolic blood pressure 124 mm[Hg] Abbie Galvan MD Work Phone: [facility] 10-17-2023 09:35-0400 Body mass index (BMI) [Ratio] 28.35 kg/m2 Cinthia Trammell MD Work Phone: [facility] 10-17-2023 09:35-0400 Body weight 87.09 kg Cinthia Trammell MD Work Phone: [facility] 10-17-2023 09:35-0400 Diastolic blood pressure 85 mm[Hg] Cinthia Trammell MD Work Phone: [facility] 10-17-2023 09:35-0400 Heart rate 63 /min Cinthia Trammell MD Work Phone: [facility] 10-17-2023 09:35-0400 Systolic blood pressure 118 mm[Hg] Cinthia Trammell MD Work Phone: [facility] 10-02-2023 09:22-0400 Body height 175.3 cm Abbie Galvan MD Work Phone: [facility] 10-02-2023 09:22-0400 Body mass index (BMI) [Ratio] 29.68 kg/m2 Abbie Galvan MD Work Phone: [facility] 10-02-2023 09:22-0400 Body temperature 96.49 [degF] Abibe Galvan MD Work Phone: [facility] 10-02-2023 09:22-0400 Body weight 91.17 kg Abbie Galvan MD Work Phone: [facility] 10-02-2023 09:22-0400 Diastolic blood pressure 82 mm[Hg] Abbie Galvan MD Work Phone: [facility] 10-02-2023 09:22-0400 Heart rate 65 /min Abbie Galvan MD Work Phone: [facility] 10-02-2023 09:22-0400 Respiratory rate 16 /min Abbie Galvan MD Work Phone: [facility] 10-02-2023 09:22-0400 SaO2% (BldA) [Mass fraction] 95 % Abbie Galvan MD Work Phone: [facility] 10-02-2023 09:22-0400 Systolic blood pressure 111 mm[Hg] Abbie Galvan MD Work Phone: [facility] 09-07-2023 07:44-0400 Body temperature 98.1 [degF] Abbie Galvan MD Work Phone: [facility] 09-07-2023 07:44-0400 Diastolic blood pressure 71 mm[Hg] Abbie Galvan MD Work Phone: [facility] 09-07-2023 07:44-0400 Heart rate 72 /min Abbie Galvan MD Work Phone: [facility] 09-07-2023 07:44-0400 Respiratory rate 16 /min Abbie Galvan MD Work Phone: [facility] 09-07-2023 07:44-0400 SaO2% (BldA) [Mass fraction] 92 % Abbie Galvan MD Work Phone: [facility] 09-07-2023 07:44-0400 Systolic blood pressure 117 mm[Hg] Abbie Galvan MD Work Phone: [facility] 09-02-2023 13:36-0400 Body height 175.3 cm Abbie Galvan MD Work Phone: [facility] 09-02-2023 13:36-0400 Body mass index (BMI) [Ratio] 29.09 kg/m2 Abbie Galvan MD Work Phone: [facility] 09-02-2023 13:36-0400 Body weight 89.36 kg Abbie Galvan MD Work Phone: [facility] 07-10-2023 13:22-0400 Body height 175.3 cm Abbie Galvan MD Work Phone: [facility] Comment on above: verbal 07-10-2023 13:22-0400 Body mass index (BMI) [Ratio] 29.87 kg/m2 Abbie Galvan MD Work Phone: [facility] 07-10-2023 13:22-0400 Body temperature 98.29 [degF] Abbie Galvan MD Work Phone: [facility] 07-10-2023 13:22-0400 Body weight 91.76 kg Abbie Galvan MD Work Phone: [facility] 07-10-2023 13:22-0400 Diastolic blood pressure 85 mm[Hg] Abbie Galvan MD Work Phone: [facility] 07-10-2023 13:22-0400 Heart rate 65 /min Abbie Galvan MD Work Phone: [facility] 07-10-2023 13:22-0400 Respiratory rate 18 /min Abbie Galvan MD Work Phone: [facility] 07-10-2023 13:22-0400 SaO2% (BldA) [Mass fraction] 96 % Abbie Galvan MD Work Phone: [facility] 07-10-2023 13:22-0400 Systolic blood pressure 140 mm[Hg] Abbie Galvan MD Work Phone: [facility] 06-21-2023 08:15-0400 Body height 175.[address] Biju Lobo Work Phone: [facility] 06-21-2023 08:15-0400 Body mass index (BMI) [Ratio] 30.1 kg/m2 Dr. Biju Lobo Work Phone: [facility] 06-21-2023 08:15-0400 Body temperature 98 [degF] Dr. Biju Lobo Work Phone: [facility] 06-21-2023 08:15-0400 Body weight 92.[address] Biju Lobo Work Phone: [facility] 06-21-2023 08:15-0400 Diastolic blood pressure 67 mm[Hg] Dr. Biju Lboo Work Phone: [facility] 06-21-2023 08:15-0400 Heart rate 71 /min Dr. Biju Lobo Work Phone: [facility] 06-21-2023 08:15-0400 Respiratory rate 22 /min Dr. Biju Lobo Work Phone: [facility] 06-21-2023 08:15-0400 SaO2% (BldA) [Mass fraction] 93 % Dr. Biju Lobo Work Phone: [facility] 06-21-2023 08:15-0400 Systolic blood pressure 100 mm[Hg] Dr. Biju Lobo Work Phone: [facility] 06-18-2023 10:02-0400 Body mass index (BMI) [Ratio] 29.9 kg/m2 Dr. Biju Lobo Work Phone: [facility] 06-18-2023 10:02-0400 Body weight 92.[address] Biju Lobo Work Phone: [facility] 06-18-2023 10:02-0400 Diastolic blood pressure 71 mm[Hg] Dr. Biju Lobo Work Phone: [facility] 06-18-2023 10:02-0400 Heart rate 78 /min Dr. Biju Lobo Work Phone: [facility] 06-18-2023 10:02-0400 Respiratory rate 18 /min Dr. Biju Lobo Work Phone: [facility] 06-18-2023 10:02-0400 Systolic blood pressure 105 mm[Hg] Dr. Biju Lobo Work Phone: [facility] 05-29-2023 13:47-0400 Body height 175.3 cm Cinthia Trammell MD Work Phone: [facility] 05-29-2023 13:47-0400 Body mass index (BMI) [Ratio] 31.75 kg/m2 Cinthia Trammell MD Work Phone: [facility] 05-29-2023 13:47-0400 Body weight 97.52 kg Cinthia Trammell MD Work Phone: [facility] 05-29-2023 13:47-0400 Respiratory rate 16 /min Cinthia Trammell MD Work Phone: [facility] 05-16-2023 12:06-0400 Heart rate 96 /min Dr. Biju Lobo Work Phone: [facility] 05-16-2023 12:06-0400 SaO2% (BldA) [Mass fraction] 95 % Dr. Biju Lobo Work Phone: [facility] 05-16-2023 12:04-0400 Inhaled oxygen flow rate 2 L/min Dr. Biju Lobo Work Phone: [facility] 05-16-2023 07:36-0400 Body height 175.[address] Biju Lobo Work Phone: [facility] 05-16-2023 07:36-0400 Body mass index (BMI) [Ratio] 31.6 kg/m2 Dr. Biju Lobo Work Phone: [facility] 05-16-2023 07:36-0400 Body temperature 97.7 [degF] Dr. Biju Lobo Work Phone: [facility] 05-16-2023 07:36-0400 Body weight 97.[address] Biju Lobo Work Phone: [facility] 05-16-2023 07:36-0400 Diastolic blood pressure 76 mm[Hg] Dr. Biju Lobo Work Phone: [facility] 05-16-2023 07:36-0400 Respiratory rate 16 /min Dr. Biju Lobo Work Phone: [facility] 05-16-2023 07:36-0400 Systolic blood pressure 108 mm[Hg] Dr. Biju Lobo Work Phone: [facility] 05-03-2023 11:54-0400 Body temperature 98.2 [degF] Dr. Biju Lobo Work Phone: [facility] 05-03-2023 11:54-0400 Diastolic blood pressure 77 mm[Hg] Dr. Biju Lobo Work Phone: [facility] 05-03-2023 11:54-0400 Heart rate 71 /min Dr. Biju Lobo Work Phone: [facility] 05-03-2023 11:54-0400 Respiratory rate 15 /min Dr. Biju Lobo Work Phone: [facility] 05-03-2023 11:54-0400 SaO2% (BldA) [Mass fraction] 100 % Dr. Biju Lobo Work Phone: [facility] 05-03-2023 11:54-0400 Systolic blood pressure 175 mm[Hg] Dr. Biju Lobo Work Phone: [facility] 05-03-2023 09:45-0400 Body height 175.[address] Biju Lobo Work Phone: [facility] 05-03-2023 09:45-0400 Body mass index (BMI) [Ratio] 31.8 kg/m2 Dr. Biju Lobo Work Phone: [facility] 05-03-2023 09:45-0400 Body weight 98.[address] Biju Lobo Work Phone: [facility] 03-19-2023 11:45-0500 Body temperature 97.4 [degF] Dr. Biju Lobo Work Phone: [facility] 03-19-2023 11:45-0500 Diastolic blood pressure 68 mm[Hg] Dr. Biju Lobo Work Phone: [facility] 03-19-2023 11:45-0500 Heart rate 67 /min Dr. Biju Lobo Work Phone: [facility] 03-19-2023 11:45-0500 Respiratory rate 18 /min Dr. Biju Lobo Work Phone: [facility] 03-19-2023 11:45-0500 SaO2% (BldA) [Mass fraction] 94 % Dr. Biju Lobo Work Phone: [facility] 03-19-2023 11:45-0500 Systolic blood pressure 111 mm[Hg] Dr. Biju Lobo Work Phone: [facility] 03-19-2023 06:00-0500 Body mass index (BMI) [Ratio] 32.1 kg/m2 Dr. Biju Lobo Work Phone: [facility] 03-19-2023 06:00-0500 Body weight 98.[address] Biju Lobo Work Phone: [facility] 03-18-2023 14:46-0500 Body height 175.[address] Biju Lobo Work Phone: [facility] 03-18-2023 14:05-0500 Inhaled oxygen flow rate 2 L/min Dr. Biju Lobo Work Phone: [facility] 03-16-2023 12:47-0500 Diastolic blood pressure 80 mm[Hg] Dr. Biju Lobo Work Phone: [facility] 03-16-2023 12:47-0500 Heart rate 80 /min Dr. Biju Lobo Work Phone: [facility] 03-16-2023 12:47-0500 Inhaled oxygen flow rate 2 L/min Dr. Biju Lobo Work Phone: [facility] 03-16-2023 12:47-0500 Respiratory rate 16 /min Dr. Biju Lobo Work Phone: [facility] 03-16-2023 12:47-0500 SaO2% (BldA) [Mass fraction] 98 % Dr. Biju Lobo Work Phone: [facility] 03-16-2023 12:47-0500 Systolic blood pressure 109 mm[Hg] Dr. Biju Lobo Work Phone: [facility] 03-16-2023 09:53-0500 Body height 175.[address] Biju Lobo Work Phone: [facility] 03-16-2023 09:53-0500 Body mass index (BMI) [Ratio] 31.9 kg/m2 Dr. Biju Lobo Work Phone: [facility] 03-16-2023 09:53-0500 Body temperature 97.2 [degF] Dr. Biju Lobo Work Phone: [facility] 03-16-2023 09:53-0500 Body weight 98.[address] Biju Lobo Work Phone: [facility] 03-12-2023 07:42-0500 Body mass index (BMI) [Ratio] 32.3 kg/m2 Dr. Biju Lobo Work Phone: [facility] 03-12-2023 07:42-0500 Body temperature 98.6 [degF] Dr. Biju Lobo Work Phone: [facility] 03-12-2023 07:42-0500 Body weight 99.[address] Biju Lobo Work Phone: [facility] 03-12-2023 07:42-0500 Diastolic blood pressure 91 mm[Hg] Dr. Biju Lobo Work Phone: [facility] 03-12-2023 07:42-0500 Heart rate 66 /min Dr. Biju Lobo Work Phone: [facility] 03-12-2023 07:42-0500 SaO2% (BldA) [Mass fraction] 94 % Dr. Biju Lobo Work Phone: [facility] 03-12-2023 07:42-0500 Systolic blood pressure 132 mm[Hg] Dr. Biju Lobo Work Phone: [facility] 01-31-2023 11:26-0500 Body height 175.[address] Biju Lobo Work Phone: [facility] 01-31-2023 11:26-0500 Body mass index (BMI) [Ratio] 32.8 kg/m2 Dr. Biju Lobo Work Phone: [facility] 01-31-2023 11:26-0500 Body temperature 97.8 [degF] Dr. Biju Lobo Work Phone: [facility] 01-31-2023 11:26-0500 Body weight 100.[address] Biju Lobo Work Phone: [facility] 01-31-2023 11:26-0500 Diastolic blood pressure 60 mm[Hg] Dr. Biju Lobo Work Phone: [facility] 01-31-2023 11:26-0500 Heart rate 68 /min Dr. Biju Lobo Work Phone: [facility] 01-31-2023 11:26-0500 Respiratory rate 17 /min Dr. Biju Lobo Work Phone: [facility] 01-31-2023 11:26-0500 SaO2% (BldA) [Mass fraction] 96 % Dr. Biju Lobo Work Phone: [facility] 01-31-2023 11:26-0500 Systolic blood pressure 90 mm[Hg] Dr. Biju Lobo Work Phone: [facility] 12-17-2022 06:44-0400 Body height 175.[address] Biju Lobo Work Phone: [facility] 12-17-2022 06:44-0400 Body mass index (BMI) [Ratio] 33.2 kg/m2 Dr. Biju Lobo Work Phone: [facility] 12-17-2022 06:44-0400 Body temperature 97.9 [degF] Dr. Biju Lobo Work Phone: [facility] 12-17-2022 06:44-0400 Body weight 102.[address] Biju Lobo Work Phone: [facility] 12-17-2022 06:44-0400 Diastolic blood pressure 71 mm[Hg] Dr. Biju Lobo Work Phone: [facility] 12-17-2022 06:44-0400 Heart rate 65 /min Dr. Biju Lobo Work Phone: [facility] 12-17-2022 06:44-0400 Respiratory rate 17 /min Dr. Biju Lobo Work Phone: [facility] 12-17-2022 06:44-0400 SaO2% (BldA) [Mass fraction] 94 % Dr. Biju Lobo Work Phone: [facility] 12-17-2022 06:44-0400 Systolic blood pressure 100 mm[Hg] Dr. Biju Lobo Work Phone: [facility] 11-16-2022 08:27-0400 Body mass index (BMI) [Ratio] 32 kg/m2 Dr. Biju Lobo Work Phone: [facility] 11-16-2022 08:27-0400 Body temperature 96.7 [degF] Dr. Biju Lobo Work Phone: [facility] 11-16-2022 08:27-0400 Body weight 98.[address] Biju Lobo Work Phone: [facility] 11-16-2022 08:27-0400 Diastolic blood pressure 69 mm[Hg] Dr. Biju Lobo Work Phone: [facility] 11-16-2022 08:27-0400 Heart rate 63 /min Dr. Biju Lobo Work Phone: [facility] 11-16-2022 08:27-0400 Respiratory rate 20 /min Dr. Biju Lobo Work Phone: [facility] 11-16-2022 08:27-0400 SaO2% (BldA) [Mass fraction] 96 % Dr. Biju Lobo Work Phone: [facility] 11-16-2022 08:27-0400 Systolic blood pressure 110 mm[Hg] Dr. Biju Lobo Work Phone: [facility] 09-25-2022 16:10-0400 Body height 175.26 cm Biju Lobo Work Phone: [facility]Vwrlztksfm-Xmcl [facility] [address] [place] Work Phone: 09-25-2022 16:10-0400 Body mass index (BMI) [Ratio] 32.49 kg/m2 Biju Lobo Work Phone: SW[facility]Xbizzrgfii-Wcit [facility] [address] [place] Work Phone: 09-25-2022 16:10-0400 Body surface area Derived from formula 2.15 m2 Biju Lobo Work Phone: ZZ[facility]Kaxmyutnpw-Sttn [facility] [address] [place] Work Phone: 09-25-2022 16:10-0400 Body weight 99.79 kg Biju Lobo Work Phone: XY-Lljkjdtzsa-Vwhl [facility] [address] [place] Work Phone: 09-25-2022 16:10-0400 Diastolic blood pressure 73 mm[Hg] Biju Reesman Work Phone: RH-Jwkfjuztkv-Kllg [facility] [address] [place] Work Phone: 09-25-2022 16:10-0400 Heart rate 67 /min Biju Reesman Work Phone: GC-Vjylordqoo-Lfbg [facility] [address] [place] Work Phone: 09-25-2022 16:10-0400 SaO2% (BldA) [Mass fraction] 98 % Biju Lobo Work Phone: UQ-Jiybxhffvb-Gddy [facility] [address] [place] Work Phone: 09-25-2022 16:10-0400 Systolic blood pressure 115 mm[Hg] Biju Lobo Work Phone: FM-Trnfbzqcgv-Xuqr [facility] [address] [place] Work Phone: 09-24-2022 15:32-0400 Body height 175.[address] Biju Lobo Work Phone: [facility] 09-24-2022 15:32-0400 Body mass index (BMI) [Ratio] 32.8 kg/m2 Dr. Biju Lobo Work Phone: [facility] 09-24-2022 15:32-0400 Body temperature 98.6 [degF] Dr. Biju Lobo Work Phone: [facility] 09-24-2022 15:32-0400 Body weight 100.[address] Biju Lobo Work Phone: [facility] 09-24-2022 15:32-0400 Diastolic blood pressure 60 mm[Hg] Dr. Biju Lobo Work Phone: [facility] 09-24-2022 15:32-0400 Heart rate 68 /min Dr. Biju Lobo Work Phone: [facility] 09-24-2022 15:32-0400 Respiratory rate 16 /min Dr. Biju Lobo Work Phone: [facility] 09-24-2022 15:32-0400 SaO2% (BldA) [Mass fraction] 92 % Dr. Biju Lobo Work Phone: [facility] 09-24-2022 15:32-0400 Systolic blood pressure 110 mm[Hg] Dr. Biju Lboo Work Phone: [facility] 09-11-2022 08:23-0400 Body mass index (BMI) [Ratio] 32.1 kg/m2 Dr. Biju Lobo Work Phone: [facility] 09-11-2022 08:23-0400 Body temperature 97.5 [degF] Dr. Biju Lobo Work Phone: [facility] 09-11-2022 08:23-0400 Body weight 98.[address] Biju Lobo Work Phone: [facility] 09-11-2022 08:23-0400 Diastolic blood pressure 74 mm[Hg] Dr. Biju Lobo Work Phone: [facility] 09-11-2022 08:23-0400 Heart rate 61 /min Dr. Biju Lobo Work Phone: [facility] 09-11-2022 08:23-0400 Respiratory rate 18 /min Dr. Biju Lobo Work Phone: [facility] 09-11-2022 08:23-0400 SaO2% (BldA) [Mass fraction] 96 % Dr. Biju Lobo Work Phone: [facility] 09-11-2022 08:23-0400 Systolic blood pressure 112 mm[Hg] Dr. Biju Lobo Work Phone: [facility] 08-30-2022 13:18-0400 Body height 175.[address] Biju Lobo Work Phone: [facility] 08-30-2022 13:18-0400 Body weight 97.[address] Biju Lobo Work Phone: [facility] 08-30-2022 13:18-0400 Heart rate 67 /min Dr. Biju Lobo Work Phone: [facility] 08-30-2022 13:18-0400 SaO2% (BldA) [Mass fraction] 97 % Dr. Biju Lobo Work Phone: [facility] 07-03-2022 05:57-0400 Body height 175.[address] Biju Lobo Work Phone: [facility] 07-03-2022 05:57-0400 Body mass index (BMI) [Ratio] 33.5 kg/m2 Dr. Biju Lobo Work Phone: [facility] 07-03-2022 05:57-0400 Body temperature 97.6 [degF] Dr. Biju Lobo Work Phone: [facility] 07-03-2022 05:57-0400 Body weight 102.[address] Biju Lobo Work Phone: [facility] 07-03-2022 05:57-0400 Diastolic blood pressure 78 mm[Hg] Dr. Biju Lobo Work Phone: [facility] 07-03-2022 05:57-0400 Heart rate 59 /min Dr. Biju Lobo Work Phone: [facility] 07-03-2022 05:57-0400 Respiratory rate 16 /min Dr. Biju Lobo Work Phone: [facility] 07-03-2022 05:57-0400 SaO2% (BldA) [Mass fraction] 97 % Dr. Biju Lobo Work Phone: [facility] 07-03-2022 05:57-0400 Systolic blood pressure 116 mm[Hg] Dr. Biju Lobo Work Phone: [facility] 06-04-2022 08:59-0400 Body height 175.[address] Biju Lobo Work Phone: [facility] 06-04-2022 08:59-0400 Body mass index (BMI) [Ratio] 33.7 kg/m2 Dr. Biju Lobo Work Phone: [facility] 06-04-2022 08:59-0400 Body temperature 98.2 [degF] Dr. Biju Lobo Work Phone: [facility] 06-04-2022 08:59-0400 Body weight 103.[address] Biju Lobo Work Phone: [facility] 06-04-2022 08:59-0400 Diastolic blood pressure 70 mm[Hg] Dr. Biju Lobo Work Phone: [facility] 06-04-2022 08:59-0400 Heart rate 62 /min Dr. Biju Lobo Work Phone: [facility] 06-04-2022 08:59-0400 Respiratory rate 17 /min Dr. Biju Lobo Work Phone: [facility] 06-04-2022 08:59-0400 SaO2% (BldA) [Mass fraction] 95 % Dr. Biju Lobo Work Phone: [facility] 06-04-2022 08:59-0400 Systolic blood pressure 100 mm[Hg] Dr. Biju Lobo Work Phone: [facility] 03-28-2022 13:11-0500 Body mass index (BMI) [Ratio] 34.74 kg/m2 Biju Lobo Work Phone: [facility] Work Phone: 03-28-2022 13:11-0500 Body surface area Derived from formula 2.21 m2 Biju [employer] Work Phone: VB-Gcqtslw-Blvjudj Work Phone: 03-28-2022 13:11-0500 Body weight 106.71 kg Biju [employer] Work Phone: RV-Fatfrsd-Fbgfese Work Phone: 03-28-2022 13:11-0500 Diastolic blood pressure 75 mm[Hg] [employer] Work Phone: WK-Ergcxew-Zkpmzdf Work Phone: 03-28-2022 13:11-0500 Heart rate 71 /min [employer] Work Phone: OR-Ixuxlxt-Pammzqp Work Phone: 03-28-2022 13:11-0500 Systolic blood pressure 123 mm[Hg] [employer] Work Phone: LQ-Xeakdvw-Ohfrski Work Phone: 03-27-2022 15:45-0500 Body height 175.26 cm Biju [employer] Work Phone: HK-Qhlkvkmstt-Efto [address] [place] Work Phone: 03-27-2022 15:45-0500 Body mass index (BMI) [Ratio] 33.97 kg/m2 [employer] Work Phone: TI-Vnmvmxezhu-Bpyk [facility] [address] [place] Work Phone: 03-27-2022 15:45-0500 Body surface area Derived from formula 2.19 m2 Biju [employer] Work Phone: QU-Zxcrjwzgwd-Pexw na [address] [place] Work Phone: 03-27-2022 15:45-0500 Body weight 104.33 kg Biju [employer] Work Phone: WB-Uvebwiszvl-Kfws [address] [place] Work Phone: 03-27-2022 15:45-0500 Diastolic blood pressure 67 mm[Hg] [employer] Work Phone: PW-Vxynxftycu-Xsbt na [address] [place] Work Phone: 03-27-2022 15:45-0500 Heart rate 64 /min Biju Ramirezutzman Work Phone: VK-Urmmkzwaal-Omyl [address] [place] Work Phone: 03-27-2022 15:45-0500 SaO2% (BldA) [Mass fraction] 96 % [employer] Work Phone: VI-Jwuvedninw-Dyhv na [address] [place] Work Phone: 03-27-2022 15:45-0500 Systolic blood pressure 103 mm[Hg] Biju Ramirezutzman Work Phone: UG-Tivggkalhl-Wjdk [facility] [address] [place] Work Phone: 02-07-2022 13:45-0500 Body height 175.26 cm Biju Ramirezutzman Work Phone: [facility] Work Phone: 02-07-2022 13:45-0500 Body mass index (BMI) [Ratio] 33.57 kg/m2 [employer] Work Phone: [facility] Work Phone: 02-07-2022 13:45-0500 Body surface area Derived from formula 2.18 m2 Biju [employer] Work Phone: [facility] Work Phone: 02-07-2022 13:45-0500 Body temperature 97.9 [degF] Biju Ramirezutzman Work Phone: [facility] Work Phone: 02-07-2022 13:45-0500 Body weight 103.11 kg Biju [employer] Work Phone: [facility] Work Phone: 02-07-2022 13:45-0500 Diastolic blood pressure 73 mm[Hg] Biju [employer] Work Phone: [facility] Work Phone: 02-07-2022 13:45-0500 Heart rate 70 /min Biju [employer] Work Phone: [facility] Work Phone: 02-07-2022 13:45-0500 SaO2% (BldA) [Mass fraction] 96 % Biju [employer] Work Phone: [facility] Work Phone: 02-07-2022 13:45-0500 Systolic blood pressure 111 mm[Hg] [employer] Work Phone: [facility] Work Phone: 02-07-2022 13:45-0500 0 1 [employer]iju [employer] Work Phone: [facility] Work Phone: Comment on above: [facility] 01-24-2022 11:20-0500 Respiratory rate 22 /min [facility] 01-24-2022 10:56-0500 Diastolic blood pressure 62 mm[Hg] [facility] 01-24-2022 10:56-0500 Heart rate 74 /min [facility] 01-24-2022 10:56-0500 SaO2% (BldA) [Mass fraction] 96 % [facility] 01-24-2022 10:56-0500 Systolic blood pressure 89 mm[Hg] [facility] 01-24-2022 09:01-0500 Body temperature 98.9 [degF] [facility] 01-24-2022 08:58-0500 Body height 175.26 cm [facility] 01-24-2022 08:58-0500 Body mass index (BMI) [Ratio] 33.1 kg/m2 [facility] 01-24-2022 08:58-0500 Body weight 101.74 kg [facility] 01-08-2022 13:34-0500 Body mass index (BMI) [Ratio] 32.78 kg/m2 [employer] Work Phone: [facility] Work Phone: 01-08-2022 13:34-0500 Body surface area Derived from formula 2.16 m2 [employer]iju [employer] Work Phone: [facility] Work Phone: 01-08-2022 13:34-0500 Body temperature 98.1 [degF] [employer] Work Phone: [facility] Work Phone: 01-08-2022 13:34-0500 Body weight 100.7 kg Biju [employer] Work Phone: [facility] Work Phone: 01-08-2022 13:34-0500 Diastolic blood pressure 68 mm[Hg] [employer]iju [employer] Work Phone: [facility] Work Phone: 01-08-2022 13:34-0500 Heart rate 99 /min [employer] Work Phone: [facility] Work Phone: 01-08-2022 13:34-0500 SaO2% (BldA) [Mass fraction] 96 % [employer] Work Phone: [facility] Work Phone: 01-08-2022 13:34-0500 Systolic blood pressure 103 mm[Hg] Biju Ramirezutzman Work Phone: [facility] Work Phone: 01-08-2022 13:34-0500 0 1 Biju oLbo Work Phone: [facility] Work Phone: Comment on above: [facility] 11-27-2021 13:27-0400 Body mass index (BMI) [Ratio] 32.49 kg/m2 Biju Ramirezutzman Work Phone: [facility] Work Phone: 11-27-2021 13:27-0400 Body surface area Derived from formula 2.15 m2 Biju Ramirezutzman Work Phone: [facility] Work Phone: 11-27-2021 13:27-0400 Body temperature 207.86 [degF] Biju Ramirezutzman Work Phone: [facility] Work Phone: 11-27-2021 13:27-0400 Body weight 99.79 kg Biju Ramirezutzman Work Phone: [facility] Work Phone: 11-27-2021 13:27-0400 Diastolic blood pressure 69 mm[Hg] Biju Ramirezutzman Work Phone: [facility] Work Phone: 11-27-2021 13:27-0400 Heart rate 69 /min Biju Ramirezutzman Work Phone: [facility] Work Phone: 11-27-2021 13:27-0400 SaO2% (BldA) [Mass fraction] 96 % Biju Moore [employer] Phone: [facility] Work Phone: 11-27-2021 13:27-0400 Systolic blood pressure 106 mm[Hg] Biju [employer] Work Phone: [facility] Work Phone: 11-27-2021 13:27-0400 0 1 Biju [employer] Work Phone: [facility] Work Phone: Comment on above: [employer] 11-14-2021 15:06-0400 Body height 175.26 cm Biju [employer] Work Phone: VF-Doxcdunpwq-Bbfb na [address] [place] Work Phone: 11-14-2021 15:06-0400 Body mass index (BMI) [Ratio] 32.93 kg/m2 Biju [employer] Work Phone: DT-Hwypemziva-Kzsa na [address] [place] Work Phone: 11-14-2021 15:06-0400 Body surface area Derived from formula 2.16 m2 Biju [employer] Work Phone: AK-Hvpozetker-Qpxa na [address] [place] Work Phone: 11-14-2021 15:06-0400 Body weight 101.15 kg Biju [employer] Work Phone: MT-Qecddagohy-Untc na [address] [place] Work Phone: 11-14-2021 15:06-0400 Diastolic blood pressure 63 mm[Hg] Biju [employer] Work Phone: SD-Bjtbidrawy-Cmyw na [address] [place] Work Phone: 11-14-2021 15:06-0400 Heart rate 87 /min Biju [employer] Work Phone: VK-Kfstsazcdm-Kcro na [address] [place] Work Phone: 11-14-2021 15:06-0400 SaO2% (BldA) [Mass fraction] 97 % Biju [employer] Work Phone: HF-Akavlywoji-Gdma na [address] [place] Work Phone: 11-14-2021 15:06-0400 Systolic blood pressure 100 mm[Hg] Biju [employer] Work Phone: TG-Fzsylabnaa-Eyrb na [address] [place] Work Phone: 10-11-2021 13:26-0400 Body height 175.26 cm Biju [employer] Work Phone: OB-Ndwsglketg-Ialz na [address] [place] Work Phone: 10-11-2021 13:26-0400 Body mass index (BMI) [Ratio] 32.78 kg/m2 Biju [employer] Work Phone: CW-Paiivdcjds-Acam na [address] [place] Work Phone: 10-11-2021 13:26-0400 Body surface area Derived from formula 2.16 m2 Biju [employer] Work Phone: LC-Ehfumgsgxm-Igvd na 140 [place] Work Phone: 10-11-2021 13:26-0400 Body weight 100.7 kg Biju [employer] Work Phone: JL-Mvfggcbypd-Lxyz na 140 [place] Work Phone: 10-11-2021 13:26-0400 Diastolic blood pressure 78 mm[Hg] Biju [employer] Work Phone: KL-Ocrssufwia-Xkpc na 140 [place] Work Phone: 10-11-2021 13:26-0400 Heart rate 78 /min Biju [employer] Work Phone: LL-Gwbjuhliwv-Giin na 140 [place] Work Phone: 10-11-2021 13:26-0400 SaO2% (BldA) [Mass fraction] 95 % Biju [employer] Work Phone: JD-Dzxdttdvtv-Layv na [address] [place] Work Phone: 10-11-2021 13:26-0400 Systolic blood pressure 121 mm[Hg] Biju [employer] Work Phone: JC-Gjdpckjcoa-Crnq na 140 [place] Work Phone: 10-11-2021 13:26-0400 0 1 Biju [employer] Work Phone: MD-Jbgwymbgbd-Fvpf na [address] [place] Work Phone: Comment on above: [employer] 09-11-2021 14:39-0400 Body height 172.72 cm Biju [employer] Work Phone: ZQ-Rxtcwimsho-Ivmk na [address] [place] Work Phone: 09-11-2021 14:39-0400 Body mass index (BMI) [Ratio] 33.15 kg/m2 Biju [employer] Work Phone: QZ-Ocfxxvisyz-Uddd na [address] [place] Work Phone: 09-11-2021 14:39-0400 Body surface area Derived from formula 2.12 m2 Biju [employer] Work Phone: FU-Utrhjyoefa-Mmos na [address] [place] Work Phone: 09-11-2021 14:39-0400 Body weight 98.88 kg Biju [employer] Work Phone: UZ-Jpfrryafki-Oodk na [address] [place] Work Phone: 09-11-2021 14:39-0400 Diastolic blood pressure 85 mm[Hg] Biju [employer] Work Phone: WR-Quvydbtoag-Patn na [address] [place] Work Phone: 09-11-2021 14:39-0400 Heart rate 73 /min Biju [employer] Work Phone: DO-Fdiumtlgnr-Jdvy na [address] [place] Work Phone: 09-11-2021 14:39-0400 SaO2% (BldA) [Mass fraction] 96 % Biju [employer] Work Phone: OH-Zribkwysvd-Rnsr na [address] [place] Work Phone: 09-11-2021 14:39-0400 Systolic blood pressure 122 mm[Hg] Biju [employer] Work Phone: LP-Fkjplkbwnl-Lhem na [address] [place] Work Phone: 06-23-2021 14:31-0400 Body height 172.72 cm Biju [employer] Work Phone: [facility] Work Phone: 06-23-2021 14:31-0400 Body mass index (BMI) [Ratio] 32.69 kg/m2 Biju [employer] Work Phone: [facility] Work Phone: 06-23-2021 14:31-0400 Body surface area Derived from formula 2.11 m2 Biju [employer] Work Phone: [facility] Work Phone: 06-23-2021 14:31-0400 Body weight 97.52 kg Biju [employer] Work Phone: [facility] Work Phone: 06-23-2021 14:31-0400 Diastolic blood pressure 84 mm[Hg] Biju [employer] Work Phone: [facility] Work Phone: 06-23-2021 14:31-0400 Heart rate 72 /min Biju [employer] Work Phone: [facility] Work Phone: 06-23-2021 14:31-0400 SaO2% (BldA) [Mass fraction] 96 % Biju [employer] Work Phone: [facility] Work Phone: 06-23-2021 14:31-0400 Systolic blood pressure 142 mm[Hg] Biju [employer] Work Phone: [facility] Work Phone: 06-21-2021 13:27-0400 Body mass index (BMI) [Ratio] 32.23 kg/m2 Biju [employer] Work Phone: [facility] Work Phone: 06-21-2021 13:27-0400 Body surface area Derived from formula 2.1 m2 Biju [employer] Work Phone: [facility] Work Phone: 06-21-2021 13:27-0400 Body temperature 207.86 [degF] Biju [employer] Work Phone: [facility] Work Phone: 06-21-2021 13:27-0400 Body weight 96.16 kg Biju [employer] Work Phone: [facility] Work Phone: 06-21-2021 13:27-0400 Diastolic blood pressure 72 mm[Hg] Biju [employer] Work Phone: [facility] Work Phone: 06-21-2021 13:27-0400 Heart rate 58 /min Biju [employer] Work Phone: [facility] Work Phone: 06-21-2021 13:27-0400 SaO2% (BldA) [Mass fraction] 98 % Biju [employer] Work Phone: [facility] Work Phone: 06-21-2021 13:27-0400 Systolic blood pressure 116 mm[Hg] Biju Lobo Work Phone: [facility] Work Phone: 06-21-2021 13:27-0400 0 1 Biju Lobo Work Phone: [facility] Work Phone: Comment on above: [facility] 06-08-2021 17:35-0400 Body temperature 97.88 [degF] Biju Lobo Other Phone: [facility] 06-08-2021 17:35-0400 Diastolic blood pressure 71 mm[Hg] Biju Lobo Other Phone: [facility] 06-08-2021 17:35-0400 Heart rate 81 /min Bjiu Lobo Other Phone: [facility] 06-08-2021 17:35-0400 Respiratory rate 18 /min Biju Lobo Other Phone: [facility] 06-08-2021 17:35-0400 SaO2% (BldA) [Mass fraction] 96 % Biju Lobo Other Phone: [facility] 06-08-2021 17:35-0400 Systolic blood pressure 102 mm[Hg] Biju Lobo Other Phone: [facility] 06-08-2021 10:25-0400 Body weight 96.8 kg Biju Lobo Other Phone: [facility] 05-02-2021 09:52-0400 Body height 172.72 cm Biju Lobo Work Phone: [facility] [place] Work Phone: 05-02-2021 09:52-0400 Body mass index (BMI) [Ratio] 32.99 kg/m2 [employer]iju [employer] Work Phone: [facility] [place] Work Phone: 05-02-2021 09:52-0400 Body surface area Derived from formula 2.12 m2 Biju [employer] Work Phone: [facility] [place] Work Phone: 05-02-2021 09:52-0400 Body temperature 207.5 [degF] Biju [employer] Work Phone: [facility] [place] Work Phone: 05-02-2021 09:52-0400 Body weight 98.43 kg Biju [employer] Work Phone: [facility] [place] Work Phone: 05-02-2021 09:52-0400 0 1 Biju [employer] Work Phone: [facility] [place] Work Phone: Comment on above: [facility] 04-03-2021 14:19-0500 Body height 177.8 cm Biju [employer] Work Phone: KF-Jiiyxilfzo-Qapc n 204 [place] Work Phone: 04-03-2021 14:19-0500 Body mass index (BMI) [Ratio] 31.68 kg/m2 Biju [employer] Work Phone: UU-Wacetcztqy-Hfrh n 204 [place] Work Phone: 04-03-2021 14:19-0500 Body surface area Derived from formula 2.18 m2 Biju [employer] Work Phone: WZ-Tacilwawik-Rrzh n 204 [place] Work Phone: 04-03-2021 14:19-0500 Body temperature 208.94 [degF] Biju [employer] Work Phone: QC-Ugzlqrjtkd-Qgse n 204 [place] Work Phone: 04-03-2021 14:19-0500 Body weight 100.15 kg Biju [employer] Work Phone: VE-Sdmypdyzzc-Ndbb n 204 [place] Work Phone: 04-03-2021 14:19-0500 Diastolic blood pressure 72 mm[Hg] Biju [employer] Work Phone: WE-Hgdliqjqmo-Nlgb n 204 [place] Work Phone: 04-03-2021 14:19-0500 Heart rate 81 /min Biju [employer] Work Phone: NB-Fsjyhlcwru-Txpr n 204 [place] Work Phone: 04-03-2021 14:19-0500 SaO2% (BldA) [Mass fraction] 96 % Biju [employer] Work Phone: ZJ-Ctpskjxlzt-Gdru n 204 [place] Work Phone: 04-03-2021 14:19-0500 Systolic blood pressure 107 mm[Hg] Biju [employer] Work Phone: PD-Zmeqransya-Mjfv n 204 [place] Work Phone: 03-29-2021 14:56-0500 Body height 177.8 cm Biju [employer] Work Phone: CO-Uozzbejauk-Mmwi n 204 [place] Work Phone: 03-29-2021 14:56-0500 Body mass index (BMI) [Ratio] 31.21 kg/m2 Biju [employer] Work Phone: WD-Shfgpxzoip-Lkqs n 204 [place] Work Phone: 03-29-2021 14:56-0500 Body surface area Derived from formula 2.16 m2 Biju [employer] Work Phone: LU-Pzxrngscri-Zuac n 204 [place] Work Phone: 03-29-2021 14:56-0500 Body weight 98.66 kg Biju Ramirezutzman Work Phone: TY-Zfjmbwlsfj-Dpum n 204 [place] Work Phone: 03-22-2021 13:37-0500 Body mass index (BMI) [Ratio] 30.85 kg/m2 Biju Ramirezutzman Work Phone: [facility] Work Phone: 03-22-2021 13:37-0500 Body surface area Derived from formula 2.15 m2 Biju Ramirezutzman Work Phone: [facility] Work Phone: 03-22-2021 13:37-0500 Body temperature 207.86 [degF] Biju Ramirezutzman Work Phone: [facility] Work Phone: 03-22-2021 13:37-0500 Body weight 97.52 kg Biju Ramirezutzman Work Phone: [facility] Work Phone: 03-22-2021 13:37-0500 Diastolic blood pressure 76 mm[Hg] Biju Ramirezutzman Work Phone: [facility] Work Phone: 03-22-2021 13:37-0500 Heart rate 78 /min Biju Ramirezutzman Work Phone: [facility] Work Phone: 03-22-2021 13:37-0500 SaO2% (BldA) [Mass fraction] 98 % Biju Ramirezutzman Work Phone: [facility] Work Phone: 03-22-2021 13:37-0500 Systolic blood pressure 119 mm[Hg] Biju [employer] Work Phone: [facility] Work Phone: 03-22-2021 13:37-0500 0 1 Biju [employer] Work Phone: [facility] Work Phone: Comment on above: [facility] 03-07-2021 10:58-0500 Body height 177.8 cm Biju [employer] Work Phone: [facility] Work Phone: 03-07-2021 10:58-0500 Body mass index (BMI) [Ratio] 30.3 kg/m2 Biju [employer] Work Phone: [facility] Work Phone: 03-07-2021 10:58-0500 Body surface area Derived from formula 2.14 m2 Biju [employer] Work Phone: [facility] Work Phone: 03-07-2021 10:58-0500 Body temperature 98.24 [degF] Biju [employer] Work Phone: [facility] Work Phone: 03-07-2021 10:58-0500 Body weight 95.8 kg Biju [employer] Work Phone: [facility] Work Phone: 03-07-2021 10:58-0500 Diastolic blood pressure 89 mm[Hg] Biju [employer] Work Phone: [facility] Work Phone: 03-07-2021 10:58-0500 Heart rate 91 /min Biju [employer] Work Phone: [facility] Work Phone: 03-07-2021 10:58-0500 Respiratory rate 16 /min Biju [employer] Work Phone: [facility] Work Phone: 03-07-2021 10:58-0500 SaO2% (BldA) [Mass fraction] 96 % Biju [employer] Work Phone: [facility] Work Phone: 03-07-2021 10:58-0500 Systolic blood pressure 126 mm[Hg] Biju [employer] Work Phone: [facility] Work Phone: 03-07-2021 10:58-0500 0 1 Biju Moore [employer] Work Phone: [facility] Work Phone: Comment on above: [facility] 03-01-2021 15:10-0500 Body height 177.8 cm Biju [employer] Work Phone: DV-Wvgqvoh-Ziroonp Work Phone: 03-01-2021 15:10-0500 Body mass index (BMI) [Ratio] 30.31 kg/m2 Biju [employer] Phone: QW-Oqaghpo-Uvewxaa Work Phone: 03-01-2021 15:10-0500 Body surface area Derived from formula 2.14 m2 Biju [employer] Work Phone: YS-Yhsqnhc-Dosnsxs Work Phone: 03-01-2021 15:10-0500 Body weight 95.82 kg Biju [employer] Work Phone: MG-Yentqly-Kvjtzer Work Phone: 03-01-2021 15:10-0500 Diastolic blood pressure 67 mm[Hg] Biju [employer] Work Phone: PG-Mjnvqyl-Enwlojs Work Phone: 03-01-2021 15:10-0500 Heart rate 134 /min Biju [employer] Work Phone: BZ-Zjrgckd-Olyfrwt Work Phone: 03-01-2021 15:10-0500 Systolic blood pressure 124 mm[Hg] Biju [employer] Work Phone: FG-Wspzpdx-Czpasms Work Phone: 02-27-2021 13:55-0500 Body height 177.8 cm Biju [employer] Work Phone: SX-Gkpdlpauth-Dkzo n 204 DO Work Phone: 02-27-2021 13:55-0500 Body mass index (BMI) [Ratio] 30.43 kg/m2 [employer] Work Phone: UX-Otwndyznxu-Sdkh n 204 DO Work Phone: 02-27-2021 13:55-0500 Body surface area Derived from formula 2.14 m2 Biju [employer] Work Phone: YE-Lybsfqvyhb-Jove n 204 DO Work Phone: 02-27-2021 13:55-0500 Body temperature 98 [degF] Biju [employer] Work Phone: ED-Wusiulizlo-Pbok n 204 DO Work Phone: 02-27-2021 13:55-0500 Body weight 96.19 kg Biju [employer] Work Phone: AV-Whyiwudfwr-Nuti n 204 DO Work Phone: 02-27-2021 13:55-0500 Diastolic blood pressure 78 mm[Hg] [employer] Work Phone: QI-Fqbzanrqxi-Adyw n 204 DO Work Phone: 02-27-2021 13:55-0500 Heart rate 88 /min Biju [employer] Work Phone: SZ-Nswlaepwvx-Csey n 204 DO Work Phone: 02-27-2021 13:55-0500 SaO2% (BldA) [Mass fraction] 97 % Biju [employer] Work Phone: NN-Uhgymkclte-Jvsz n 204 DO Work Phone: 02-27-2021 13:55-0500 Systolic blood pressure 126 mm[Hg] Biju Ramirezutzman Work Phone: MS-Lltinwfypr-Yzrd n 204 DO Work Phone: 01-25-2021 15:46-0500 Body height 177.8 cm Biju Ramirezutzman Work Phone: BV-Dbzwhom-Rdjacpb d HC 232 DO Work Phone: 01-25-2021 15:46-0500 Body mass index (BMI) [Ratio] 25.4 kg/m2 [employer] Work Phone: RW-Jfdfwom-Uovuuxm d HC 232 DO Work Phone: 01-25-2021 15:46-0500 Body surface area Derived from formula 1.98 m2 Biju [employer] Work Phone: AJ-Gfabday-Wlndiir d HC 232 DO Work Phone: 01-25-2021 15:46-0500 Body weight 80.3 kg Biju Ramirezutzman Work Phone: PS-Bvrccvx-Asymmge d HC 232 DO Work Phone: 01-25-2021 15:46-0500 Diastolic blood pressure 80 mm[Hg] Biju Ramirezutzman Work Phone: GP-Dbcqaee-Hlckikv d HC 232 DO Work Phone: 01-25-2021 15:46-0500 Heart rate 83 /min Biju [employer] Work Phone: QT-Rhqpnzf-Mhqngxd d HC 232 DO Work Phone: 01-25-2021 15:46-0500 Systolic blood pressure 131 mm[Hg] Biju Ramirezutzman Work Phone: QT-Rxpzgao-Izkjxly d HC 232 DO Work Phone: 12-07-2020 14:12-0400 Body height 177.8 cm Biju Lobo Work Phone: OT-Ecgsuwkj-Eughoc de 1500 Work Phone: 12-07-2020 14:12-0400 Body mass index (BMI) [Ratio] 28.02 kg/m2 Biju Lobo Work Phone: JM-Kthmafkc-Exqskx de 1500 Work Phone: 12-07-2020 14:12-0400 Body surface area Derived from formula 2.07 m2 Biju Lobo Work Phone: NT-Dmvtzawy-Vwxzzh de 1500 Work Phone: 12-07-2020 14:12-0400 Body temperature 97.9 [degF] Biju Lobo Work Phone: MB-Itxyenjr-Scnaxo de 1500 Work Phone: 12-07-2020 14:12-0400 Body weight 88.59 kg Biju Lobo Work Phone: ER-Aivrqkpc-Thczkq de 1500 Work Phone: 12-07-2020 14:12-0400 Diastolic blood pressure 73 mm[Hg] Biju Lobo Work Phone: KK-Wchcxxah-Hqmuso de 1500 Work Phone: 12-07-2020 14:12-0400 Systolic blood pressure 119 mm[Hg] Biju Lobo Work Phone: BL-Xmadckme-Nmkukp de 1500 Work Phone: Encounters Encounter Date Encounter Type Care Provider Facility Start: 09-02-2024 End: 09-02-[address] Richard Munoz DO -[facility] Work Phone: Start: 09-02-2024 End: 09-02-[address] Biju Lobo DO Work Phone: -[facility] Start: 08-04-2024 End: 08-04-[address] Biju Lobo DO Work Phone: [facility] Work Phone: Start: 08-04-2024 End: 08-04-2024 Patient encounter procedure [employer] Tita Wick -Cat Scan [facility] Work Phone: Start: 08-04-2024 End: 08-04-2024 ambulatory [facility] Facility:[facility] Start: 07-23-2024 End: 07-23-[address] Christian Hernandez MD -[facility] Work Phone: Start: 07-23-2024 End: 07-23-[address] Biju Lobo DO Work Phone: [facility] Work Phone: Start: 07-15-2024 End: 07-15-[address] Biju Lobo DO Work Phone: [facility] Work Phone: Start: 07-15-2024 End: 07-15-2024 Patient encounter procedure [employer] Tita Wick -[facility] Work Phone: Start: 07-10-2024 End: 07-10-[address] Biju Lobo DO Work Phone: [facility] Work Phone: Start: 07-10-2024 End: 07-10-[address] Christian Hernandez MD -Radiology [facility] Work Phone: Start: 07-10-2024 End: 07-10-2024 ambulatory Biju Yamil Facility:[facility] Start: 07-03-2024 ambulatory Biju [facility] Facility: [facility] Start: 07-03-2024 Non-patient / Non-visit Dr. Richard montelongo DO -[facility] Start: 07-02-2024 End: 07-02-[address] Biju Lobo DO Work Phone: [facility] Work Phone: Start: 07-02-2024 End: 07-02-2024 Patient encounter procedure [employer] Tita Wick -Pulmonary Services/Neurology Work Phone: Start: 07-02-2024 End: 07-02-2024 ambulatory [facility] Facility:[facility] Start: 06-29-2024 Non-patient / Non-visit Dr. Richard montelongo DO -[facility] Start: 06-29-2024 End: 06-29-[address] Biju Lobo DO Work Phone: [facility] Work Phone: Start: 06-29-2024 End: 06-29-2024 Patient encounter procedure [employer] Tita [facility] Work Phone: Start: 06-29-2024 End: 06-29-2024 ambulatory [facility] Facility:[facility] Start: 06-24-2024 End: 06-24-2024 Office outpatient visit 15 minutes Abbie Galvan MD Work Phone: [facility] Comment on above: Bilateral vocal fold paralysis (Primary Dx); Tracheostomy dependence Start: 06-24-2024 ambulatory [facility] Start: 06-22-2024 Non-patient / Non-visit Dr. Harrison wilkes MD -[facility] Start: 06-22-2024 End: 06-22-[address] Biju Lobo DO Work Phone: [facility] Work Phone: Start: 06-22-2024 End: 06-22-[address] Christian Hernandez MD -Cardiovascular Services Work Phone: Start: 06-22-2024 End: 06-22-2024 ambulatory [facility] Facility:[facility] Start: 05-27-2024 End: 05-27-2024 ambulatory [facility] Facility:[facility] Start: 05-27-2024 End: 05-27-2024 Patient encounter procedure [facility] Work Phone: Start: 05-26-2024 End: 05-26-[address] Christian Hernandez MD -[facility] Work Phone: Start: 05-26-2024 End: 05-26-2024 ambulatory Biju RamirezYamil Facility:[facility] Start: 04-15-2024 End: 04-15-2024 Patient encounter procedure [employer] Tita Wick -[facility] Work Phone: Start: 04-15-2024 End: 04-15-2024 ambulatory Tita Wick Facility:[facility] Start: 04-13-2024 End: 04-13-[address] Biju Lobo DO Work Phone: [facility] Work Phone: Start: 04-13-2024 End: 04-13-[address] Gilbert Hoang MD -Laboratory Work Phone: Start: 04-13-2024 End: 04-13-2024 ambulatory [facility] Facility:[facility] Start: 04-01-2024 End: 04-01-[address] Gilbert Hoang MD -[facility] Work Phone: Start: 04-01-2024 End: 04-01-2024 ambulatory [facility] Facility:[facility] Start: 03-25-2024 End: 03-25-2024 Office outpatient visit 15 minutes Abbie Galvan MD Work Phone: [facility] Comment on above: Bilateral vocal fold paralysis (Primary Dx); Tracheostomy dependence Start: 03-25-2024 [facility] Start: 03-24-2024 End: 03-24-[address] Akbar Archuleta MD -Laboratory Work Phone: Start: 03-24-2024 End: 03-24-2024 ambulatory Akbar Archuleta Facility:[facility] Start: 03-16-2024 End: 03-16-[address] Christian Hernandez MD -[facility] Work Phone: Start: 03-16-2024 End: 03-16-2024 ambulatory Biju Lobo Facility:[facility] Start: 03-08-2024 End: 03-08-2024 Emergency department patient visit Dr. Ramos Randall MD -Emergency Department Work Phone: Start: 03-08-2024 End: 03-08-2024 ambulatory Facility:[facility] Start: 12-27-2023 End: 12-27-2023 Office outpatient visit 15 minutes Abbie Galvan MD Work Phone: [facility] Comment on above: Bilateral vocal fold paralysis (Primary Dx); Tracheostomy dependence Start: 12-27-2023 ambulatory BIJU LOBO [facility] y:[facility] Start: 12-24-2023 End: 12-24-2023 ambulatory Christian Hernandez Facility:[facility] Start: 12-10-2023 End: 12-10-2023 ambulatory Christian Hernandez Facility:[facility] Start: 11-26-2023 End: 11-26-2023 ambulatory Christian Hernandez Facility:[facility] Start: 11-12-2023 End: 11-12-2023 ambulatory Christian Hernandez Facility:[facility] Start: 10-30-2023 ambulatory [facility] Facility: [facility] Start: 10-30-2023 End: 11-02-2023 Evaluation and management of inpatient [facility] Facility:[facility] Start: 10-29-2023 ambulatory Nikolai Sigala ty:[facility] Start: 10-28-2023 End: 10-28-2023 Emergency department patient visit Ramos Randall Facility:[facility] Start: 10-28-2023 End: 10-28-2023 ambulatory Cinthia Trammell II Facility:[facility] Start: 10-22-2023 End: 10-23-2023 Evaluation and management of inpatient Pj Almanza Facility:[facility] Start: 10-22-2023 ambulatory Pj Almanza Facility:[facility] Start: 10-17-2023 End: 10-17-2023 ambulatory Biju Lobo Facility:[facility] Start: 10-17-2023 End: 10-17-2023 Office outpatient visit 25 minutes Cinthia Trammell MD Work Phone: [facility] Comment on above: Benign prostatic hyp erplasia with urinary obstruction and other lower urinary tract symptoms; Nocturia; Erectile disorder; Urinary incontinence, unspecified type; Recurrent UTI Start: 10-11-2023 End: 10-11-2023 Emergency department patient visit Noah Morgan Facility:[facility] Start: 10-10-2023 End: 10-10-2023 ambulatory Plato Yamil Facility:[facility] Start: 10-02-2023 End: 10-02-2023 Office outpatient visit 25 minutes Abbie Galvan MD Work Phone: [facility] Comment on above: Bilateral vocal fold paralysis (Primary Dx); Tracheostomy dependence Start: 10-02-2023 ambulatory BIJU LOBO Facilit y:[facility] Start: 10-01-2023 End: 10-01-2023 ambulatory Biju Lobo [facility] [facility] Start: 09-07-2023 End: 09-19-2023 Evaluation and management of inpatient Biju Lobo Facility:[facility] Start: 09-02-2023 End: 09-07-2023 Evaluation and management of inpatient Abbie Galvan MD Work Phone: [id number] Comment on above: Bilateral vocal fold paralysis Start: 08-29-2023 ambulatory BIJU LOBO Facilit y:[facility] Start: 08-29-2023 Encounter for other preprocedural examination BIJU LOBO Facility:[facility] Start: 07-10-2023 End: 07-10-2023 Office outpatient new 45 minutes Abbie Galvan MD Work Phone: [facility] Comment on above: Bilateral vocal fold paralysis (Primary Dx); Stridor; Dyspnea on exertion Start: 07-10-2023 ambulatory JAMIE GRIJALVA Facility :[facility] Start: 06-25-[address] Biju Lobo Work Phone: [facility]-Laboratory Work Phone: Start: 06-21-2023 End: 06-21-[address] Biju Lobo Work Phone: [facility] Work Phone: Start: 06-18-2023 End: 06-18-[address] Biju Lobo Work Phone: [facility] Work Phone: Start: 06-18-2023 End: 06-18-[address] [facility] Start: 06-18-2023 End: 06-18-[address] Biju Lobo Work Phone: [facility] Work Phone: Start: 05-29-2023 End: 05-29-2023 ambulatory [facility] Ambulatory Start: 05-29-2023 End: 05-29-2023 Office outpatient visit 25 minutes Cinthia Trammell MD Work Phone: [facility] Comment on above: Benign prostatic hyp erplasia with urinary obstruction and other lower urinary tract symptoms (Primary Dx); Nocturia; Erectile disorder Start: 05-17-2023 End: 05-17-[address] Biju Lobo Work Phone: [facility] Work Phone: Start: 05-17-2023 End: 05-17-[address] Biju [facility]obo [facility] Work Phone: Start: 05-16-2023 End: 05-16-[address] Biju Lobo Work Phone: [facility] Work Phone: Start: 05-16-2023 End: 05-16-[address] [facility]iju [facility] Start: 05-16-2023 End: 05-16-[address] Biju Lobo Work Phone: [facility] Medicine [facility] Work Phone: Start: 05-06-2023 End: 05-06-[address] Biju Lobo Work Phone: [facility] Work Phone: Start: 05-06-2023 End: 05-06-[address] Biju Lobo Work Phone: [facility]atory Work Phone: Start: 05-03-2023 End: 05-03-2023 Emergency department patient visit Dr. Biju Lobo Work Phone: [facility]-Emergency Department Work Phone: Start: 03-28-2023 End: 03-28-[address] Biju Lobo Work Phone: [facility] Work Phone: Start: 03-28-2023 End: 03-28-[address] Biju Lobo [facility] Start: 03-26-2023 End: 03-26-2023 ambulatory [facility] Start: 03-19-2023 Non-patient / Non-visit Dr. Messi Lobo Work Phone: [facility] Inpatient Physicians Work Phone: Start: 03-18-2023 Non-patient / Non-visit Dr. Messi Lobo Work Phone: [facility] Start: 03-18-2023 Non-patient / Non-visit Dr. Messi Lobo Work Phone: [facility]icians Work Phone: Start: 03-17-2023 Non-patient / Non-visit Dr. Messi Lobo Work Phone: [facility]icians Work Phone: Start: 03-16-2023 Non-patient / Non-visit Dr. Messi Lobo Work Phone: [facility] Start: 03-16-2023 End: 03-19-2023 Evaluation and management of inpatient Dr. Biju Lobo Work Phone: [facility]-Medical Surgical 3 Work Phone: Start: 03-12-2023 End: 03-12-[address] [facility]iju [facility] Work Phone: Start: 02-04-2023 Non-patient / Non-visit Dr. Messi Lobo Work Phone: [facility] Start: 02-04-2023 End: 02-04-[address] Biju Lobo Work Phone: [facility] Work Phone: Start: 02-04-2023 End: 02-04-[address] Biju Lobo Work Phone: [facility]-Cardiovascula r Services Work Phone: Start: 01-31-2023 End: 01-31-[address] Biju Lobo Work Phone: [facility] Neurology Work Phone: Start: 12-17-2022 End: 12-17-[address] Biju Lobo [facility] Work Phone: Start: 12-14-2022 End: 12-14-[address] Biju Lobo Work Phone: [facility] Work Phone: Start: 12-14-2022 End: 12-14-[address] Biju Lobo Work Phone: [facility]-Laboratory, OP Pavilion Start: 11-16-2022 End: 11-16-[address] Biju Lobo Work Phone: [facility] Work Phone: Start: 11-06-2022 AUDIT Biju Rsoe n Work Phone: DX-Hdxlnbe-Yvzbvzo Work Phone: Start: 11-03-2022 AUDIT Biju henriquez Work Phone: UX-Xodwnyxhzv-Shmqg Work Phone: Start: 10-09-2022 End: 10-09-[address] Biju Lobo Work Phone: [facility] Work Phone: Start: 10-09-2022 End: 10-09-[address] Biju Lobo Work Phone: [facility] Work Phone: Start: 09-25-2022 Office outpatient vi sit 15 minutes Biju Lobo Work Phone: DZ-Dajtwwjtlr-Igoafy [address] [place] Work Phone: Start: 09-25-[address] Biju Lobo Facility:[id number] Start: 09-25-2022 End: 09-25-[address] Biju Lobo Work Phone: [facility] Work Phone: Start: 09-25-2022 End: 09-25-[address] Biju Lobo Work Phone: [facility] Work Phone: Start: 09-24-2022 End: 09-24-[address] Biju Lobo Work Phone: [facility] Neurology Work Phone: Start: 09-21-2022 AUDIT Biju henriquez Work Phone: ZH-Hsttxryoav-Kipkwp 140 [place] Work Phone: Start: 09-13-2022 End: 09-13-[address] Biju Lobo Work Phone: [facility]-Sleep Lab Work Phone: Start: 09-11-2022 End: 09-11-[address] Biju Lobo Work Phone: [facility] Medicine [facility] Work Phone: Start: 09-10-2022 AUDIT Biju henriquez Work Phone: LG-Ibtxpupahj-Dsvia Work Phone: Start: 08-31-2022 Non-patient / Non-visit Dr. Messi Lobo Work Phone: [facility] Start: 08-30-2022 End: 08-30-[address] Biju Lobo Work Phone: [facility] Work Phone: Start: 08-30-2022 End: 08-30-[address] Biju Lobo Work Phone: [facility]-Pulmonary Services/Neurology Work Phone: Start: 08-24-2022 Non-patient / Non-visit Dr. Messi Lobo Work Phone: [facility] Start: 08-23-2022 End: 08-23-[address] Biju Lobo Work Phone: [facility] Work Phone: Start: 08-23-2022 End: 08-23-[address] Biju Lobo Work Phone: [facility]-Pulmonary Services/Neurology Work Phone: Start: 07-03-2022 End: 07-03-[address] Biju Lobo Work Phone: [facility] Work Phone: Start: 07-03-2022 End: 07-03-[address] Biju [facility]obo [facility] Start: 06-28-2022 End: 06-28-[address] Biju Lobo Work Phone: [facility] Work Phone: Start: 06-28-2022 End: 06-28-[address] Biju Lobo Work Phone: [facility]-Sleep Lab Start: 06-19-2022 End: 06-19-[address] Biju Lobo Work Phone: [facility] Work Phone: Start: 06-19-2022 End: 06-19-[address] Biju Lobo Work Phone: [facility]-Laboratory Start: 06-07-2022 AUDIT Biju henriquez Work Phone: SY-Ljxvdmzsqd-Tmpqw Work Phone: Start: 06-04-2022 End: 06-04-[address] Biju Lobo Work Phone: [facility] Neurology Start: 05-21-2022 Non-patient / Non-visit Dr. Messi Lobo Work Phone: [facility] Start: 05-21-2022 End: 05-21-[address] Biju Lobo Work Phone: [facility] Work Phone: Start: 05-21-2022 End: 05-21-[address] Biju Lobo Work Phone: [facility]-Pulmonary Services/Neurology Start: 05-09-2022 AUDIT Biju Reesma n Work Phone: FW-Kndohytfzp-Wofkxn 140 [place] Work Phone: Start: 05-02-2022 End: 05-02-2022 ambulatory [facility] Work Phone: Start: 05-02-2022 End: 05-02-2022 Patient encounter procedure [facility]-Laboratory, Edith Charles [facility] Start: 04-11-2022 End: 04-11-2022 ambulatory [facility] Work Phone: Start: 04-11-2022 End: 04-11-2022 Patient encounter procedure [facility] Start: 03-28-2022 FUV, Provider: Cinthia Trammell II, Status: Pen, Time: 1:15 PM Biju Reesman Work Phone: HQ-Hviicrffme-Maqnhr 140 [place] Work Phone: Start: 03-28-2022 Office outpatient vi sit 25 minutes Biju A Yamil Work Phone: KP-Gyukuiv-Ndmugky Work Phone: Start: 03-27-2022 Office outpatient vi sit 25 minutes Biju A Yamil Work Phone: CB-Gmdavtjwdq-Dubfsa 140 [place] Work Phone: Start: 03-09-2022 AUDIT Biju Moore Stutzma n Work Phone: RL-Uiooaeh-Akimccu Work Phone: Start: 02-22-2022 End: 02-22-2022 ambulatory [facility] Work Phone: Start: 02-22-2022 End: 02-22-2022 Patient encounter procedure [facility]-Laboratory Start: 02-07-2022 Patient encounter procedure Biju Lobo Work Phone: [facility] [facility] Work Phone: Start: 01-25-2022 Chart Update Biju Moore Cabreramessi n Work Phone: [facility] [facility] Work Phone: Start: 01-24-2022 End: 01-24-2022 Emergency department patient visit [facility]-Emergency Department Start: 01-08-2022 Office outpatient vi sit 15 minutes Biju Lobo Work Phone: [facility] [facility] Work Phone: Start: 01-08-2022 Patient encounter procedure Biju Teresa Yamil Work Phone: [facility] [facility] Work Phone: Start: 12-25-2021 Chart Update Biju Reesma n Work Phone: OP-Poicwvgeoa-Mxtexe 140 [place] Work Phone: Start: 12-14-2021 AUDIT Biju Reesma n Work Phone: RU-Uogndbivhv-Dtklu Work Phone: Start: 12-09-2021 End: 12-09-2021 Emergency department patient visit Dr. Biju Lobo Facility:[id number] Start: 12-08-2021 ADLTPSG, Provider: [facility] RM 2,[id number], Status: Pen, Time: 8:00 PM Biju Lobo Work Phone: [place]-Nxubkjtemk-Cafxz Work Phone: Start: 12-08-2021 AUDIT Biju Reesma n Work Phone: SP-Ysmclzbszd-Bgoklx 140 [place] Work Phone: Start: 12-07-2021 Chart Update Biju Moore Strichardma n Work Phone: QH-Pawpegwksd-Kgvmm Work Phone: Start: 11-27-2021 Office outpatient vi sit 25 minutes Biju Lobo Work Phone: [facility] [address] [place] Work Phone: Start: 11-27-2021 Patient encounter procedure Biju Lobo Work Phone: [facility] [facility] Work Phone: Start: 11-22-2021 AUDIT Biju Moore Stutzma n Work Phone: LD-Lfqdwwkrh-Lvszx 204 Work Phone: Start: 11-14-2021 Office outpatient ne w 45 minutes Biju Reesman Work Phone: GG-Jpnkukrmpv-Zviviy 140 [place] Work Phone: Start: 11-01-2021 Patient encounter procedure Biju Lobo Work Phone: [facility]-Pulmonary Medicine-[place] [facility] Work Phone: Start: 10-26-2021 AUDIT Biju Moore Stutzma n Work Phone: VB-Eyjrhvbwfk-Qqvbv Work Phone: Start: 10-11-2021 Current tobacco non- user cad cap copd pv dm Biju Moore Yamil Work Phone: UC-Cyinflvvwn-Xiessq 140 [place] Work Phone: Start: 09-18-2021 End: 09-18-2021 Patient encounter procedure [facility] Start: 09-14-2021 Chart Update Biju Moore Stutzma n Work Phone: FW-Xllvlqzgfe-Bgpcy Work Phone: Start: 09-11-2021 Office outpatient vi sit 25 minutes Biju A Yamil Work Phone: TA-Ucwlbjowqw-Tpytxf 140 [place] Work Phone: Start: 09-05-2021 End: 09-05-2021 Patient encounter procedure [facility] Start: 06-23-2021 NPV, Provider: Jayne Godinez, Status: Pen, Time: 2:30 PM Biju A Yamil Work Phone: [facility] [facility] Work Phone: Start: 06-21-2021 Office outpatient vi sit 15 minutes Biju A Yamil Work Phone: [facility]ul[facility]-[place] [address] Work Phone: Start: 06-21-2021 Patient encounter procedure Biju A Yamil Work Phone: [facility] [facility] Work Phone: Start: 06-07-2021 AUDIT Biju A Stutzma n Work Phone: IK-Vskmurqk-Byuyndg Moore Work Phone: Start: 06-03-2021 End: 06-08-2021 Evaluation and management of inpatient Yvan Walker [facility] Lksd 60 Rm [id number] Start: 05-17-2021 AUDIT Biju A Stutzma n Work Phone: [facility] [facility] Work Phone: Start: 05-02-2021 Office outpatient vi sit 25 minutes Biju A Yamil Work Phone: [facility]th[facility] Work Phone: Start: 05-02-2021 Patient encounter procedure Biju A Yamil Work Phone: NC-Kzkiiihukhvjuw-Qhji [place] Work Phone: Start: 04-19-2021 AUDIT Biju A Stutzma n Work Phone: GE-Grjrdcqdnsqtau-Geie MOB02 [place] Work Phone: Start: 04-06-2021 AUDIT Biju Rose n Work Phone: QL-Dzzudvuhxdvdec-Wwcs man Voice Work Phone: Start: 04-05-2021 Patient encounter procedure Biju Lobo Work Phone: CU-Dppldgwqj-Vwmdcit 4200 Work Phone: Start: 04-05-2021 VIRFUVHOME, Provider : Kailyn Michel, Status: Pen, Time: 1:00 PM Biju Lobo Work Phone: TO-Oiapbsssby-Rgtic 204 [place] Work Phone: Start: 04-03-2021 Office outpatient vi sit 25 minutes Biju Lobo Work Phone: DX-Mmnfyanxmd-Rjlmo 204 [place] Work Phone: Start: 03-22-2021 NPVPRE, Provider: Macario Bond, Status: Pen, Time: 2:00 PM Biju Lobo Work Phone: QE-Zugwqnujpoosyq-Twru man Voice Work Phone: Start: 03-22-2021 Office outpatient ne w 45 minutes Biju Lobo Work Phone: [facility] [facility] Work Phone: Start: 03-22-2021 Patient encounter procedure Biju Lobo Work Phone: [facility] [facility] Work Phone: Start: 03-08-2021 Chart Update Biju Reesma n Work Phone: IM-Rdjbftzpeq-Fhlez 204 [place] Work Phone: Start: 03-07-2021 Office consultation new/estab patient 60 min Biju Lobo Work Phone: HM-Dgdimmucgmxhou-Zrxs man Voice Work Phone: Start: 03-01-2021 FUV, Provider: Cinthia Trammell II, Status: Pen, Time: 3:00 PM Biju Lobo Work Phone: EA-Bkvwhizlzg-Wixsw 204 [place] Work Phone: Start: 03-01-2021 Office outpatient ne w 45 minutes Biju Lobo Work Phone: XE-Wbxonjo-Yezhmzn Work Phone: Start: 02-27-2021 Office consultation new/estab patient 80 min Biju Lobo Work Phone: QI-Ucvoqukagl-Vsrsp 204 [place] Work Phone: Start: 02-24-2021 Chart Update Biju Teresa Milton n Work Phone: AZ-Zuvwwtbw-Uhqixalx 1500 Work Phone: Start: 01-25-2021 Office outpatient ne w 45 minutes Biju Lobo Work Phone: GB-Gotakyj-Byfwoiqd HC 232 DO Work Phone: Start: 12-07-2020 Patient encounter procedure Biju Lobo Work Phone: BL-Cxquntdb-Lrxljodh 1500 Work Phone: Procedures Date Procedure Procedure Detail Performing Clinician Start: 08-04-2024 CT of chest without contrast Dr. Biju Lobo DO Work Phone: Start: 07-10-[address] Biju serrano DO Work Phone: Start: 04-13-2024 Measurement of renal function Dr. Biju Lobo DO Work Phone: Comment on above: GFR Calc Start: 03-24-2024 Urnls dip stick/tabl et reagent auto microscopy Dr. Biju Lobo DO Work Phone: Start: 03-08-2024 X-ray of chest, PA a nd lateral views Dr. Biju Lobo DO Work Phone: Start: 03-08-2024 Gram stain microscopy Gomez Lobo DO Work Phone: Start: 03-08-2024 Respiratory microbia l culture Dr. Biju Lobo DO Work Phone: Start: 03-08-2024 SARS-CoV-2, Influenz a & RSV (PCR) Dr. Biju Lobo DO Work Phone: Start: 10-17-2023 Urnls dip stick/tabl et rgnt auto w/o microscopy Cinthia Trammell MD Work Phone: Start: 09-07-2023 Electrolyte panel Beatris Larose MD Work Phone: Start: 09-06-2023 Glucose measurement, blood Abbie Galvan MD Work Phone: Start: 09-06-2023 Creatinine blood Beatris Larose MD Work Phone: Start: 09-05-2023 Creatinine blood Beatris Larose MD Work Phone: Start: 09-04-2023 Creatinine blood Beatris Larose MD Work Phone: Start: 09-03-2023 Creatinine blood Beatris Larose MD Work Phone: Start: 09-02-2023 Radiologic exam ches t single view Efe Mcnulty MD Work Phone: Start: 09-02-2023 End: 09-02-2023 Tracheostomy planned separate procedure Abbie Galvan MD Work Phone: Start: 09-02-2023 CARDIAC RHYTHM Other Ot her Start: 05-17-2023 Investigation of transfusion reaction Dr. Biju Lobo Work Phone: Start: 05-17-[address] l culture Dr. Biju Lobo Work Phone: Start: 05-16-2023 Plain chest X-ray Dr. Link Lobo Work Phone: Start: 05-03-2023 Plain chest X-ray Dr. Link Lobo Work Phone: Start: 03-26-2023 ECG 12-LEAD NEVIN MARIE Start: 03-20-2023 History of placement of stent for coronary artery disease H/O right coronary artery stent placement Cinthia Trammell MD Work Phone: Start: 03-18-[address] Biju serrano Work Phone: Start: 03-17-20[address] e detection Dr. Biju Lobo Work Phone: Start: 03-17-2023 Giardia Antigen (FRANCESCA) D barry Lobo Work Phone: Start: 03-17-[address] Biju Lobo Work Phone: Start: 03-17-2023 Measurement of occul t blood in stool specimen using immunoassay Dr. Biju Lobo Work Phone: Start: 03-17-[address] Biju Lobo Work Phone: Start: 03-17-2023 Ova OR parasites identification Dr. Biju Lobo Work Phone: Start: 03-16-2023 Bacteria identified in Blood by Culture Dr. Biju Lobo Work Phone: Start: 03-16-[address] Biju Lobo Work Phone: Start: 03-16-2023 Computed tomography of abdomen and pelvis with intravenous contrast Dr. Biju Lobo Work Phone: Start: 03-16-2023 CT angiography of ch est with contrast Dr. Biju Lobo Work Phone: Start: 03-16-2023 Plain chest X-ray Dr. Link Lobo Work Phone: Start: 10-09-2022 CT angiography of he ad and neck Dr. Biju Lobo Work Phone: Start: 09-25-[address] Biju serrano Work Phone: Start: 07-03-2022 MRI of brain with contrast Dr. Biju Lobo Work Phone: Start: 01-24-2022 Follow-up visit Start: 01-24-2022 Plain chest X-ray Start: 10-11-2021 Follow-up visit Start: 09-18-2021 CT of abdomen and pe lvis without contrast Start: 09-11-2021 Thyrotropin [Units/v olume] in Serum or Plasma Cinthia Trammell MD Work Phone: Start: 09-05-2021 CT of abdomen Start: 06-05-2021 Echocardiography Biju Lobo Work Phone: Start: 06-04-2021 Lipid 1996 panel - S joceline or Plasma Cinthia Trammell MD Work Phone: Start: 06-04-2021 End: 06-04-2021 EKG impression Gene Lemus Arthroscopy of knee Biju serrano Work Phone: Cardiac catheterization Biju Lobo Work Phone: Comment on above: [06/06/2021, Dr. Marcelle Pro]: RCA stented with a 3.5 x 26 mm Resolute Holden stent; [06/06/2021, Dr. 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 Culprit mid RCA 95% thrombotic stenosis. Moderate non-hemodynamically significant proximal LAD 40-50% stenosis (RFR 0.94). Elevated left-sided filling pressure (LVEDP 25 mmHg end-expiration). No gradient on pull-back to suggest aortic stenosis. RFR of proximal LAD lesion 0.94 (<0.90 benefit from revascularization).; H/O: tracheostomy Status post tracheostomy Dr. Biju Lobo DO Work Phone: History of placement of stent for coronary artery disease H/O right coronary artery stent placement Biju Lobo Work Phone: History of placement of stent for coronary artery disease H/O right coronary artery stent placement Dr. Biju Lobo Work Phone: Operative procedure on knee Biju Lobo Work Phone: Respiratory syncytia l virus antigen assay Respiratory syncytia l virus antigen assay SARS-CoV-2 & FLU Ant igen (Rapid) SARS-CoV-2 & FLU Ant igen (Rapid) Thyroidectomy Biju Moore Milton henriquez Work Phone: Plan of Treatment Date Care Activity Detail Author Start: 2033 RSV VACCINE (1 - 1-d ose 75+ series) RSV VACCINE (1 - 1-dose 75+ series) [facility] Start: 06-04-2026 Lipid panel Lipid Panel [facility] Start: 10-19-2024 Influenza vaccination INFLUENZ A VACCINE (Season Ended) [facility] Start: 10-14-2024 End: 10-14-2024 Patient encounter procedure 10/14/2024 1:00 PM EDT Office Visit [facility] [address] [place] [address] Abbie Galvan MD 2 [facility] [address] [place] [address] [facility] Start: 09-06-2024 Potassium [Moles/vol ume] in Serum or Plasma POTASSIUM [facility] Start: 07-16-2024 Patient referral [facility] Work Phone: Start: 07-02-2024 Walking distance 6 minutes [facility] Start: 06-29-2024 Measurement of respiratory function [facility] Start: 06-24-2024 End: 06-24-2024 Patient encounter procedure 06/24/2024 11:20 AM EDT Office Visit [facility] [address] [place] [address] [facility]van [facility] [address] [facility] [address] [place] [address] [facility] Start: 06-19-2024 Patient referral [facility] Work Phone: Start: 06-03-2024 End: 06-03-2024 Patient encounter procedure 06/03/2024 1:00 PM EDT Office Visit [facility] [address] [facility] [address] [place] [address] Cinthia Trammell MD [address] [place] [address] [facility] Start: 05-19-2024 End: 05-28-2024 Prostate specific Ag [Mass/volume] in Serum or Plasma Prostate Specific Antigen Lab Routine Nocturia Expected: 05/19/2024 (Approximate), Expires: 05/28/2024 [facility] Service Area Work Phone: Comment on above: Expected: 05/19/2024 (Approximate), Expires: 05/28/2024 Start: 03-25-2024 End: 03-25-2024 Patient encounter procedure 03/25/2024 11:20 AM EST Office Visit [facility] [address] [place] [id number] Abbie Galvan MD [address] [facility] [address] [place] [address] [facility] Start: 03-08-2024 [facility] Start: 03-08-2024 [facility] Start: 12-27-2023 End: 12-27-2023 Patient encounter procedure 12/27/2023 11:00 AM EST Office Visit [facility] [address] [place], [place] [id number] Abbie Galvan MD [address] [facility] [address] [place] [address] [facility] Start: 10-20-2023 COVID-19 VACCINE ( season) COVID-19 VACCINE () [facility] Start: 10-20-2023 Influenza vaccination INFLUENZA VACC INE (#1) [facility] Start: 10-08-2023 End: 10-08-2023 Patient encounter procedure 10/08/2023 3:00 PM EDT Office Visit [facility] [address] [facility] [address] [place] [phone] Nevin Rogers MD PhD [address] [facility] [address], [address] [place] [address] [facility] Start: 10-02-2023 End: 10-02-2023 Patient encounter procedure 10/02/2023 9:20 AM EDT Office Visit [facility] [address] [place] [address] Abbie Galvan MD [address] [facility] [address] [place] [address] [facility] Start: 07-10-2023 End: 07-09-2024 CT Neck W contrast IV CT NECK WITH CONTRAST Imaging Routine Bilateral vocal fold paralysis Stridor Expected: 07/10/2023, Expires: 07/09/2024 [facility] Comment on above: Expected: 07/10/2023 , Expires: 07/09/2024 Start: 06-12-2023 End: 06-12-2023 Patient encounter procedure 06/12/2023 2:30 PM EDT Office Visit [facility] [address] [place] [address] Nevin Rogers MD PhD [address] [facility] [address], [address] [place] [address] [facility] Start: 05-16-2023 Patient referral [facility] Work Phone: Start: 05-14-2023 Abdominal aortic ane urysm screening [facility] Start: 05-14-2023 Pneumococcal vaccination PNEUM OCOCCAL VACCINE SERIES (1 of 1 - PCV) [facility] Start: 05-03-2023 [facility] Start: 03-26-2023 FUV, Provider: Nevin Rogers, Status: Pen, Time: 3:30 PM FUV, Provider: Neivn Rogers, Status: Pen, Time: 3:30 PM CV-Npecvyzbvl-Lrfoaa 140 [place] Work Phone: Start: 03-19-2023 Patient discharge [facility] Start: 03-16-2023 End: 03-16-2023 [facility] Start: 03-16-2023 Following clinical pathway protocol [facility] Start: 03-16-2023 Ambulation without limitation [facility] Start: 03-16-2023 Assessment of risk o f venous thromboembolism [facility] Start: 03-16-2023 Fluid intake encouragement [facility] Start: 03-16-2023 Insertion of cathete r into peripheral vein [facility] Start: 03-16-2023 Measuring intake and output [facility] Start: 03-16-2023 Notification of physician [facility] Start: 03-16-2023 Providing care accor ding to standard [facility] Start: 03-16-2023 Referral to gastroenterology service [facility] Start: 03-16-2023 [facility] Start: 03-16-2023 Oxygen therapy [facility] Start: 03-16-2023 Streptococcus pneumo niae antigen assay [facility] Start: 03-16-2023 [facility] Start: 03-16-2023 Bacteria identified in Blood by Culture Blood Culture [facility] Start: 03-16-2023 Bacteria identified in Urine by Culture [facility] Start: 03-16-2023 Lactoferrin [Presenc e] in Stool by Immunoassay [facility] Start: 01-27-2024 Measurement of occul t blood in stool specimen using immunoassay [facility] Start: 03-16-2023 Hospital admission, emergency, from emergency room, medical nature [facility] Start: 03-16-2023 Verification routine [facility] Start: 03-16-2023 Admission procedure [facility] Start: 03-16-2023 End: 03-16-2023 Blood culture [facility] Start: 03-16-2023 Giardia lamblia anti gen assay [facility] Start: 03-16-2023 Protein measurement [facility] Start: 03-16-2023 Blood chemistry [facility] Start: 03-16-2023 Triacylglycerol lipa se measurement [facility] Start: 03-16-2023 [facility] Start: 03-16-2023 Enteric precautions [facility] Start: 03-16-2023 Inhalation therapy procedure [facility] Start: 12-18-2022 Creatinine measurement Creatinine Le salvador [facility] Start: 12-18-2022 Potassium measurement Potassium Leve l [facility] Start: 10-19-2022 COVID-19 Vaccine ( season) COVID-19 Vaccine () [facility] Start: 09-25-2022 FUV, Provider: Nevin Rogers, Status: Pen, Time: 3:45 PM FUV, Provider: Nevin Rogers, Status: Pen, Time: 3:45 PM DU-Obimhsvqbm-Tkiqgy 140 [place] Work Phone: Start: 09-11-2022 Thyroid stimulating hormone measurement TSH Level [facility] Start: 06-05-2022 Echocardiography E[facility] Start: 06-04-2022 Diabetes mellitus screening Diabetes Screening [facility] Start: 04-30-2022 FUVPRE, Provider: Leta Lu, Status: Pen, Time: 1:00 PM FUVPRE, Provider: Leta Lu, Status: Pen, Time: 1:00 PM [facility] [facility] Sleep Work Phone: Start: 03-28-2022 FUV, Provider: Cinthia Trammell II, Status: Pen, Time: 1:15 PM FUV, Provider: Cinthia Trammell II, Status: Pen, Time: 1:15 PM TY-Tfsjutf-Sfthknp Work Phone: Start: 03-27-2022 FUV, Provider: Nevin [...] Nevin Rogers, Status: Pen, Time: 3:45 PM RV-Lfmqurfvyg-Csihee 140 [place] Work Phone: Start: 01-24-2022 End: 01-24-2022 [facility] Start: 01-08-2022 FUVPRE, Provider: Leta Lu, Status: Pen, Time: 1:30 PM FUVPRE, Provider: Leta Lu, Status: Pen, Time: 1:30 PM [facility] [facility] Work Phone: Start: 01-08-2022 METHCHOL, Provider: KI MADRID 6TH FLR PFT RM1,PULM, Status: Pen, Time: 11:00 AM METHCHOL, Provider: KI BOLNAYE 6TH FLR PFT RM1,PULM, Status: Pen, Time: 11:00 AM [facility] [facility] Work Phone: Start: 01-08-2022 SPIROMETRY, Provider : KI MADRID 6TH FLR PFT RM1,PULM, Status: Pen, Time: 10:30 AM SPIROMETRY, Provider: [facility] JULIUS 6TH FLR PFT RM1,PULM, Status: Pen, Time: 10:30 AM [facility] [facility] Work Phone: Start: 12-08-2021 ADLTPSG, Provider: [facility] RM 2,[id number], Status: Pen, Time: 8:00 PM ADLTPSG, Provider: [facility] RM 2,[id number], Status: Pen, Time: 8:00 PM XM-Mlozsrlpo-Viroc 204 Work Phone: Start: 11-27-2021 FUVPRE, Provider: Leta Lu, Status: Pen, Time: 1:30 PM FUVPRE, Provider: Leta Lu, Status: Pen, Time: 1:30 PM [facility] Work Phone: Start: 11-14-2021 NPV, Provider: Nevin Rogers, Status: Pen, Time: 3:00 PM NPV, Provider: Nevin Rogers, Status: Pen, Time: 3:00 PM HF-Tirrubjyua-Whvuip 140 [place] Work Phone: Start: 11-01-2021 Patient encounter procedure [facility] Start: 10-11-2021 FUV, Provider: Jayne Godinez, Status: Pen, Time: 1:30 PM FUV, Provider: Jayne Godinez, Status: Pen, Time: 1:30 PM NI-Tiyismyfyw-Gzbzpt 140 [place] Work Phone: Start: 10-04-2021 Patient encounter procedure [facility] Start: 09-22-2021 FUV, Provider: Jayne Godinez, Status: Pen, Time: 11:00 AM FUV, Provider: Jayne Godinez, Status: Pen, Time: 11:00 AM [facility] [facility] Work Phone: Start: 09-06-2021 Patient encounter procedure [facility] Start: 08-09-2021 Patient encounter procedure [facility] Start: 07-12-2021 Patient encounter procedure [facility] Start: 06-26-2021 FUV, Provider: Princess Mireille, Status: Pen, Time: 2:30 PM FUV, Provider: Princess Mireille, Status: Pen, Time: 2:30 PM QK-Kwqttjpftm-Oxkid 204 DO Work Phone: Start: 06-26-2021 Patient encounter procedure [facility] [place] [facility] Start: 06-23-2021 NPV, Provider: Jayne Godinez, Status: Pen, Time: 2:30 PM NPV, Provider: Jayne Godinez, Status: Pen, Time: 2:30 PM WG-Ywsxydcr-Qkqalfu Benítez Work Phone: Start: 06-23-2021 Patient encounter procedure [facility] Start: 06-21-2021 FUVPRE, Provider: Macario Bond, Status: Pen, Time: 1:30 PM FUVPRE, Provider: Macario Bond, Status: Pen, Time: 1:30 PM [facility] [facility] Sleep Work Phone: Start: 06-21-2021 Patient encounter procedure [facility] Start: 06-07-2021 Coronary artery disease Olmos ry artery disease Date: 07-Jun-2021 [facility] Start: 06-07-2021 End: 06-08-2022 Polyethylene Glycol 17 gram Oral Powder Daily PRN ; Powder for Reconstitution (MIRALAX)DOSE = 17 gram(s) Oral 2 Times a Day Start: 07-Jun-2021 End: 07-Jun-2022 Ordered: 07-Jun-2021 Leandra Pollack Intent [facility] Start: 06-05-2021 End: 06-06-2022 Albuterol 90 micrograms/ Inhalation MDI 2 inhalation Every 6 Hours PRN ; (PROVENTIL, VENTOLIN)DOSE = 2 inhalation Every 4 Hours via MDI, PRN Shortness of BreathNotes from Pharmacy: [facility] Start: 05-Jun-2021 End: 05-Jun-2022 Ordered: 05-Jun-2021 Gene Lemus Intent [facility] Start: 06-04-2021 End: 06-04-2022 [facility] Start: 05-02-2021 FUV, Provider: Sudheer Mcfarlane, Status: Pen, Time: 9:45 AM FUV, Provider: Sudheer Mcfarlane, Status: Pen, Time: 9:45 AM [facility] Work Phone: Start: 05-02-2021 FUV, Provider: Sudheer Mcfarlane, Status: Pen, Time: 9:40 AM FUV, Provider: Sudheer Mcfarlane, Status: Pen, Time: 9:40 AM KW-Xihmcijuvyrvkp-Vk idman Voice Work Phone: Start: 04-05-2021 VIRFUVHOME, Provider : Kailyn Michel, Status: Pen, Time: 1:00 PM VIRFUVHOME, Provider: Kailyn Michel, Status: Pen, Time: 1:00 PM JB-Hcxaitjhxnhuti-Lc idman Voice Work Phone: Start: 04-03-2021 FUV, Provider: Princess Mireille, Status: Pen, Time: 2:30 PM FUV, Provider: Princess Mireille, Status: Pen, Time: 2:30 PM EG-Efdiakcnph-Wsybx 204 DO Work Phone: Start: 03-29-2021 CYSTOSCOPY, Provider : [facility],[id number], Status: Pen, Time: 2:45 PM CYSTOSCOPY, Provider: [facility]URE RM,[id number], Status: Pen, Time: 2:45 PM MQ-Guorvjn-Kompgvv Work Phone: Start: 03-22-2021 NPVPRE, Provider: Macario Bond, Status: Pen, Time: 2:00 PM NPVPRE, Provider: Macario Bond, Status: Pen, Time: 2:00 PM [facility] Work Phone: Start: 03-22-2021 NPV, Provider: Quita Zarate, Status: Pen, Time: 9:00 AM NPV, Provider: Quita Zarate, Status: Pen, Time: 9:00 AM HI-Ifxdtdrl-Lvmvsymz 1500 Work Phone: Start: 03-07-2021 NPV, Provider: Sudheer Mcfarlane, Status: Pen, Time: 11:00 AM NPV, Provider: Sudheer Mcfarlane, Status: Pen, Time: 11:00 AM OG-Jtongqydnx-Rgbih 204 DO Work Phone: Start: 03-01-2021 FUV, Provider: Cinthia Trammell II, Status: Pen, Time: 3:00 PM FUV, Provider: Cinthia Trammell II, Status: Pen, Time: 3:00 PM ED-Ciwnjvez-Jtzsaeqp 1500 Work Phone: Start: 02-27-2021 NPV, Provider: Princess Mireille, Status: Pen, Time: 2:00 PM NPV, Provider: Princess Mireille, Status: Pen, Time: 2:00 PM XQ-Pwngafvl-Bnuhfiza 1500 Work Phone: Start: 02-22-2021 FUV, Provider: Cinthia Trammell II, Status: Pen, Time: 3:45 PM FUV, Provider: Cinthia Trammell II, Status: Pen, Time: 3:45 PM TX-Vrbzjkn-Kxtxkrig HC 232 DO Work Phone: Start: 2018 RSV patient s and/or patients aged 60+ years (1 - 1-dose 60+ series) RSV patients and/or patients aged 60+ years (1 - 1-dose 60+ series) [facility] Start: 2018 RSV VACCINE (1 - 1-d ose 60+ series) RSV VACCINE (1 - 1-dose 60+ series) [facility] Start: 2013 Prostate specific an tigen measurement PROSTATE CANCER SCREENING DISCUSSION [facility] Start: 2008 Prostate specific an tigen measurement PROSTATE CANCER SCREENING DISCUSSION [facility] Start: 2008 Zoster vaccine hzv l david for subcutaneous use ZOSTER (SHINGLES) VACCINE (1 of 2) [facility] Start: 2008 Zoster Vaccines (1 of 2) Zoste r Vaccines (1 of 2) [facility] Start: 05-14-2003 Screening for malign ant neoplasm of colon COLORECTAL CANCER SCREENING DISCUSSION [facility] Start: 1998 Lipid panel LIPID SCREENING [facility] Start: 1980 DTaP/Tdap/Td Vaccine s (1 - Tdap) DTaP/Tdap/Td Vaccines (1 - Tdap) [facility] Start: 1977 Third diphtheria, te tanus and acellular pertussis (DTaP) vaccination TDAP (ADULT) [facility] Start: 1976 Hepatitis C screening Hepatitis C Sc reening [facility] Start: 1964 Pneumococcal Vaccine : 65+ Years (1 of 2 - PCV) Pneumococcal Vaccine: 65+ Years (1 of 2 - PCV) [facility] Start: 05-14-1959 MMR Vaccines (1 of 1 - Standard series) MMR Vaccines (1 of 1 - Standard series) [facility] Start: 1958 Annual wellness visit Medicare Initial Physical (IPPE) [facility] Start: 1958 Hepatitis C screening HEPATITI S C VIRUS SCREENING [facility] Start: 1958 Screening for malign ant neoplasm of colon [facility] Start: 1958 Tetanus vaccination TETANUS [facility] Start: 1958 Thyroid stimulating hormone measurement TSH [facility] Bilirubin measuremen t, urine [facility] Clostridioides diffi cile DNA [Presence] in Unspecified specimen by YOLY with probe detection [facility] CT Chest WO contrast [facility] CT Chest WO contrast [facility] CTA Head vessels and Neck vessels W contrast IV [facility] Exercise tolerance test [facility] Exercise tolerance test [facility] Gastrointestinal pathogens panel - Stool by YOLY with probe detection [facility] Hemoglobin [Presence ] in Urine [facility] Lactoferrin [Presenc e] in Stool by Immunoassay [facility] Laryngoscopy flx/rgd telescopic w/stroboscopy ND LARYNGOSCOPY FLX/RGD TELESCOPIC W/STROBOSCOPY ND Charge Routine Bilateral vocal fold paralysis Stridor Dyspnea on exertion Ordered: 07/10/2023 [facility] Comment on above: Ordered: 07/10/2023 Legionella pneumophi la Ag [Presence] in Urine [facility] Lipid 1995 panel - S joceline or Plasma [facility] Magnesium [Mass/volu me] in Serum or Plasma [facility] Measurement of keton es in urine using dipstick [facility] Measurement of respiratory function [facility] Measurement of respiratory function [facility] Microscopic urinalysis [facility] MR Brain WO and W contrast IV [facility] NM Heart Views W str ess and W radionuclide IV [facility] Organism count, microscopic method [facility] Ova and parasites identified in Unspecified specimen by Light microscopy [facility] Ova and parasites identified in Unspecified specimen by Light microscopy [facility] Patient Education [facility] Work Phone: Patient referral [facility] Work Phone: pH of Urine [facility] Polysomnography [facility] Serum inorganic phos phate measurement [facility] Specific gravity of Urine [facility] Urine dipstick for glucose [facility] Urine dipstick for leukocyte esterase [facility] Urine dipstick for nitrite [facility] Urine dipstick for protein [facility] Urine examination [facility] Urine microscopy: epithelial cells [facility] Urine microscopy: re d cells [facility] Urobilinogen [Presen ce] in Urine [facility] Carotid arteries [facility] US Carotid arteries [facility] US Heart [facility] Videoswallow [facility] White blood cell count [facility] Immunizations Immunization Date Immunization Notes Care Provider Fa joie 06-17-2023 Pneumococcal Vaccine PCV20 (Prevnar 20) Dr. Biju Lobo DO Work Phone: [facility] 12-17-2022 influenza, injectabl e, quadrivalent, preservative free Dr. Biju Lobo Work Phone: [facility] 12-17-2022 influenza virus vacc ine, unspecified formulation Abbie Galvan MD Work Phone: [facility] 12-22-2020 Moderna COVID-19 Vac cine 100 MCG/0.5ML Intramuscular Suspension Biju Lobo Work Phone: [facility] Work Phone: 04-07-2020 Moderna COVID-19 Vac cine 100 MCG/0.5ML Intramuscular Suspension Biju A Yamil Work Phone: [facility] Work Phone: 03-10-2020 Moderna COVID-19 Vac cine 100 MCG/0.5ML Intramuscular Suspension Biju Lobo Work Phone: [facility] Work Phone: 12-21-2018 Influenza, injectabl e, [place] [place] Canine Kidney, quadrivalent with preservative Biju Lobo Work Phone: [facility] Work Phone: 12-31-2012 influenza, seasonal, injectable Biju Lobo Work Phone: [facility] Work Phone: Payers Date Payer Category Payer Unknown 0 2023 Self-pay [id number] 2023 Managed Care (unspecified) MEDICARE SUPPLEMENT [id number] 2023 Medicare [id number]. [id number] 2023 Unknown 2023 Medicare [id number] 2023 Unknown [id number] 2021 Unknown [id number] 1960 Unknown [id number] 2.16.840.1.452949.3.579.2. 1069 1958 Unknown [id number] 2.16840.1.174534.3.579.2. 356 1958 Unknown [id number] 2.16840.1.227775.3.579.2. 1245 1958 Unknown [id number] 2.840.1.459781.3.579.2. 1244 1958 Unknown [id number] 2.16840.1.010386.3.579.2. 594 1958 Unknown [id number] 2.16840.1.135072.3.579.2. 594 1958 Unknown [id number] 2.16.840.1.057272.3.579.2. 594 1958 Unknown [id number] 2.16840.1.043338.3.579.2. 594 1958 Unknown [id number] 2.16840.1.796554.3.579.2. 594 1958 Unknown [id number] 2.16840.1.459809.3.579.2. 594 1958 Unknown [id number] 2.16840.1.808862.3.579.2. 594 1958 Unknown [id number] 2.16840.1.395835.3.579.2. 594 Unknown [id number] [facility] [employer] [facility] [id number] Unknown [id number] 2.16.840.1.047986.3.579.2. 462 Unknown [id number] 2.16.840.1.730489.3.579.2. 462 Unknown [id number] 2.16.840.1.284122.3.579.2. 462 Unknown [id number] 2.16.840.1.233883.3.579.2. 462 Unknown [id number] 2.16.840.1.393997.3.579.2. 462 Unknown [id number] 2.16.840.1.611483.3.579.2. 462 Unknown [id number] 2.16.840.1.412534.3.579.2. 462 Unknown [id number] 2.16.840.1.078662.3.579.2. 462 Unknown [id number] 2.16.840.1.490901.3.579.2. 462 Unknown [id number] 2.16.840.1.063663.3.579.2. 462 Unknown [id number] 2.16.840.1.773313.3.579.2. 462 Unknown [id number] 2.16.840.1.835331.3.579.2. 462 Unknown [id number] 2.16.840.1.288407.3.579.2. 462 Unknown [id number] 2.16.840.1.532627.3.579.2. 462 Unknown [id number] 2.16.840.1.831192.3.579.2. 462 Unknown [id number] 2.16.840.1.646174.3.579.2. 462 Unknown [id number] 2.16.840.1.458683.3.579.2. 462 Unknown [id number] 2.16.840.1.498010.3.579.2. 462 Unknown [id number] 2.16.840.1.720427.3.579.2. 462 Unknown [id number] 2.16.840.1.930934.3.579.2. 462 Unknown [id number] 2.16.840.1.329400.3.579.2. 462 Unknown [id number] 2.16.840.1.689411.3.579.2. 462 Unknown [id number] 2.16.840.1.859863.3.579.2. 462 Unknown [id number] 2.16.840.1.813548.3.579.2. 462 Unknown [id number] 2.16.840.1.855231.3.579.2. 462 Unknown [id number] 2.16.840.1.794750.3.579.2. 462 Unknown [id number] 2.16.840.1.467693.3.579.2. 462 Unknown [id number] 2.16.840.1.257678.3.579.2. 462 Unknown [id number] 2.16.840.1.029286.3.579.2. 462 Unknown [id number] 2.16.840.1.288601.3.579.2. 462 Unknown [id number] 2.16.840.1.262234.3.579.2. 462 Unknown [id number] 2.16.840.1.738629.3.579.2. 462 Unknown [id number] 2.16.840.1.991961.3.579.2. 462 Unknown [id number] 2.16.840.1.646880.3.579.2. 462 Unknown [id number] 2.16.840.1.326754.3.579.2. 462 Unknown [id number] 2.16.840.1.908670.3.579.2. 462 Unknown [id number] 2.16.840.1.949587.3.579.2. 462 Unknown [id number] 2.16.840.1.546245.3.579.2. 462 Unknown [id number] 2.16.840.1.480128.3.579.2. 462 Social History Date Type Detail Facility Start: 05-29-2023 End: 06-24-2024 Current every day smoker Current every day smoker YS-Gyculvi-Dqzefhjy HC 232 DO Work Phone: Start: 01-13-2021 End: 06-18-2023 Tobacco smoking consumption unknown [facility] Start: 1960 Sex Assigned At Male [facility] Start: 03-26-2023 End: 03-08-2024 Tobacco smoking status NHIS Ex-smoker [facility] End: 02-18-2021 History of tobacco use Current smoker [facility] Work Phone: End: 02-18-2021 History of tobacco use Cigarette Smoker [facility] Work Phone: Start: 03-26-2023 End: 07-10-2023 Tobacco use and exposure Smokeless tobacco non-user [facility] Work Phone: Start: 05-29-2023 End: 06-24-2024 Tobacco use panel [facility] Work Phone: Start: 1960 Sex assigned at Not on file [facility] Work Phone: Start: 05-19-2023 End: 05-29-2023 Exposure to SARS-CoV-2 (event) Not sure [facility] Start: 07-10-2023 End: 06-24-2024 Alcoholic beverage intake Ex-drinker (finding) [facility] Adolescent depressio n screening assessment 0 [facility] Has the electric, gas, oil, or water company threatened to shut off services in your home in past 12Mo No [facility] (I/We) worried whether (my/our) food would run out before (I/we) got money to buy more. Never true [facility] Start: 03-19-2024 Gender identity Identifies as male gender (finding) [facility] Start: 03-19-2024 Sexual orientation Heterosexual (fin khalida) [facility] Start: 06-28-2023 End: 04-24-2024 Sex Male (finding) [facility] NEGATED: Highlighted row Denies Current every day smoker Denies Current every day smoker [facility] Work Phone: Goals Date Patient Goal Desired Activity /State Functional Status Date Assessment Result Facility 09-02-2023 Are you deaf, or do you have serious difficulty hearing No 09/02/2023 6:00 PM Reyna Tolliver, JAZIEL No [facility] 09-02-2023 Are you blind, or do you have serious difficulty seeing, even when wearing glasses No 09/02/2023 6:00 PM Reyna Tolliver, JAZIEL No [facility] 09-02-2023 Do you have serious difficulty walking or climbing stairs Yes 09/02/2023 6:00 PM Reyna Tolliver, RN Yes [facility] 09-02-2023 Do you have difficul ty dressing or bathing No 09/02/2023 6:00 PM Reyna Tolliver, RN No [facility] 09-02-2023 Because of a physica l, mental, or emotional condition, do you have difficulty doing errands alone such as visiting a physician's office or shopping No 09/02/2023 6:00 PM Reyna Tolliver, JAZIEL No [facility] 03-19-2023 Functional status Ambulates [facility] Work Phone: Functional observable [facility] Mental Status Date Assessment Result Facility 09-02-2023 Because of a physica l, mental, or emotional condition, do you have serious difficulty concentrating, remembering, or making decisions Yes 09/02/2023 6:00 PM EDT Reyna Ta, RN Yes [facility] 03-19-2023 Cognitive function Voice/Name [facility] Work Phone: 06-05-2021 Cognitive functi ons :37 [facility] Clinical Notes 02-27-2019 to 08-05-2024 Note Date & Type Note Facility 08-05-2024 Radiology Diagnostic study note [facility] Imaging Services [address] [place] [address] Chest without Contrast MR#: [id number] Acct: [id number] Name: FREDDIE COLE Rep #: [id number] : 1960 M 64 From: Jayleen Smart MD PCP: Dr. Biju Lobo, DO Status: REG CLI Study:Chest without Contrast Date of Exam: 08/04/24 Exam# [id number] Ordering Dr: Tita Wick [employer] PROCEDURE: CHEST WITHOUT CONTRAST 08/04/2024 REASON FOR EXAM: SHORTNESS OF BREATH, WORSENING RESTRICTION ON PFT TECHNIQUE: Chest CT without contrast. Coronal and Sagittal reconstruction series were provided. One or more dose reduction techniques were used (e.g., Automated exposure control, adjustment of the mA and/or kV according to patient size, use of iterative reconstruction technique RADIATION DOSE SUMMARY: CTDlvol: 14.24 mGy DLP: 469 mGycm COMPARISON: Chest radiograph on 03/08/2024. CT scan on 08/13/2023. FINDINGS: Midline tracheostomy tube is in good position. Mild cardiomegaly. Moderate coronary artery calcifications. Mild bilateral basilar atelectatic pulmonary changes. Small sliding hiatal hernia. Mild gaseous dilatation of the esophagus, probably reflux. Mild diffuse spondylosis. Normal unenhanced main pulmonary artery and right and left pulmonary arteries. Normal bilateral peripheral pulmonary arteries. Normal thoracic aorta and visualized great vessels. There is no demonstrated aortic aneurysm. Normal pericardium. Normal mediastinum. Normal hilar regions. Normal visualized trachea and bronchi. The remaining lungs are well expanded. Normal remaining pulmonary parenchyma. Normal pleura. Normal remaining visualized upper abdomen. CT/Chest without Contrast IMPRESSION: IMPRESSION: Coronary artery calcification (CAC) is is present Midline tracheostomy tube is in good position. Mild cardiomegaly. Moderate coronary artery calcifications. Mild bilateral basilar atelectatic pulmonary changes. Small sliding hiatal hernia. Mild gaseous dilatation of the esophagus, probably reflux. Mild diffuse spondylosis. [facility] CC: Dr. Biju Lobo DO; Tita Wick NP ~ Medical Associate: Signed [facility] 07-15-2024 Progress note Note Date/Time July 15, 2024 2:38p m [facility] [place] [address] [place] [address]. [address] [place] [address] OFFICE VISIT Date of Service: 07/15/24 MR#: [id number] Acct: [id number] Name: FREDDIE COLE Rep #: [id number] : 1960 Provider: Tita jaramillo NP Age/Sex: 64/M [place] [facility] Status: Signed Assessment and Plan Assessment and Plan (1) Asthma-COPD overlap syndrome: Status: Chronic Plan: PFT shows worsening disease when compared to previous. Current PFT shows both restrictive and obstructive disease. The obstructive disease is likely due to the asthma and COPD. The restrictive lung disease could be due to Parkinson's disease versus a newly developed pulmonary disease such as interstitial lung disease. I have recommended that the patient complete a chest CT at this time, closely monitoring for evidence of chronic aspiration. The patient should continue to follow closely with neurology. The patient may benefit from closelyfollowing his 6-minute walk test due to the degree of desaturation from last study but the patient does not require supplemental oxygen at this time. Continue with use of long-acting triple therapy including budesonide, Drake Jackson, this is a full regiment to treat COPD. Use DuoNebs on an as-needed basis. Continue Mucinex 1200 mg once daily with a full glass of water. NIOX was unable to be obtained in the past so it was not attempted today. I have given the patient a prednisone taper today to determine if this improves his respiratory symptoms. If there has been improvement with the oral prednisone then the patient will likely benefit from consideration of test prior. The patient has been given information regarding his biologic. Pulmonary rehab was offered to the patient today and he has agreed to proceed. This will be discussed with Dr. Munoz. (2) MARYJO (obstructive sleep apnea): Status: Chronic Plan: History of obstructive sleep apnea, currently treated with tracheostomy. Continue to follow with [facility]. 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 He is ambulatory, currently on room air and accompanied today by his . 2024 he went to ER for influenza A and treated with prednisone burst and antibiotic. Still coughing from illness and patient and spouse do not feel that he is back to baseline. Suctioning 3 times per day mostly clear, occasionally brown. Still follows with ENT at [facility] and they change out the trach,it is due to be changed next month. This patient was last hospitalized at [facility] from August 12 through August 15, 2023 with exacerbation of COPD and orthostatic hypotension. Patient reports that he no longer requires the use of oxygen. He states that when he was hospitalized at [facility] it was determined that he did not require supplemental oxygen with ambulation or sleep. He is compliant with the use of budesonide nebulized at 1pm and 8pm, formoterol at 7am and 5pm, Yupelri 10:30am. With the [employer] program he has been able to obtain his medications. He has not required Duo Neb. In the past he used Trelegy and reports that it was beneficial to him. Initially he was not using the medications as recommended and mixing some that were not supposed to be mixed and he felt worse . Recently the timing of the medications and dosages were adjusted and the patient has started to receive benefit from triple therapynebulized. He has stopped using Mucinex. He is having difficulty with swallowing and choking on food. A swallow study has been initiated by neurology. He feels like his Parkinson's disease is progressing. He reports that his shortness of breath occurs at rest and exertion. He is concerned that his shortness of breath is worsening as he is noticing when he iswalking to the mailbox he will have shortness of breath. He indicates that he does feel better after midmorning. He feels like he has secretions in his chestright upon awakening. He has difficulty clearing these. He occasionally hears some wheezing. He does experience chest tightness. He does have a productive cough of clear 2 tannish sputum, he will suction 3 times daily. He has noticed more sinus and chest congestion in the last few weeks. He denies any chest painor palpitations. He has not had any fever, chills or body aches. He believes that in the past oral prednisone has helped improve his breathing. He no longer requires use of his PAP device due to the tracheostomy. Documentation reviewed with patient today includes: PFT from June 29, 2024 shows irreversible very severe mixed ventilatory defect. Diffusion capacity was unable to be obtained. 6-minute walk test from July 02, 2024 shows the jad oxygen saturation at 90% and there is evidence of impaired walk distance. There is no significant exertional oxygen desaturation. There is no indication for the use of supplemental oxygen at this time Intake Vital Signs 05/27/24 08:22 07/15/24 08:22 Height 5 ft 9 in 5 ft 9 in Weight: 203 lb BMI 29.9 BP 126/83 H Blood Pressure Location Rt brachial Position Sitting Respiration 20 H Pulse 78 Pulse Source Monitor Temp 97.8 F Temperature Source Temporal Artery Pulse Oximetry (%) 94 Oxygen Delivery Method room air Intake Visit Reasons: 6-8 wk f u Chief Complaint: Asset Specialist Required: No Accompanied by: Is patient in pain?: No Allergies vibegron (From Gemtesa) Allergy (Severe, Verified 07/15/24 13:50) Rash Medications ?Medication ?Instructions ?Recorded ?Confirmed ?Type levothyroxine 150 mcg tablet 150 mcg PO DAILY thyroid 01/13/21 07/15/24 History (Synthroid) aspirin 81 mg chewable tablet 81 mg PO DAILY heart hea lth 01/24/22 07/15/24 History (Luis Alberto Chewable Low Dose Aspirin) tamsulosin 0.4 mg capsule 0.4 mg PO DAILY prostate 07/15/24 History Handicap placard #1 ea 10/01/22 07/15/24 Rx carbidopa 25 mg-levodopa 100 mg 2 tab PO TID parkinson s #540 tabs 10/01/23 07/15/24 Rx tablet budesonide 1 mg/2 mL suspension 1 mg (2 mL) inhalation BID 10/17/23 07/15/24 Rx for nebulization breathing #120 mL nitrofurantoin 100 mg PO MOWEFR bladder 04/1307/15/24 History monohydrate/macrocrystals 100 mg capsule furosemide 40 mg tablet (Lasix) 20 mg (1/2 x 40 mg) PO 1200 PRN 11/02/23 07/15/24 Rx Leg swelling 30 days #0 tabs atropine 1 % eye drops See Rx Instructions buccal D AILY 03/18/24 07/15/24 Rx secretions #10 mL clopidogrel 75 mg tablet 75 mg PO DAILY anit platelet #90 04/06/24 07/15/24 Rx tabs potassium chloride 20 mEq 20 meq PO DAILY supplement # 90 tabs 04/07/24 07/15/24 Rx tablet,extended release rosuvastatin 5 mg tablet 5 mg PO DAILY cholesterol #9 0 tabs 04/10/24 07/15/24 Rx formoterol fumarate 20 mcg/2 mL 2 ml inhalation BID #1 20 mL 04/15/24 07/15/24 Rx solution for nebulization (Perforomist) nebulizer kits #1 ea 04/15/24 07/15/24 Rx revefenacin 175 mcg/3 mL solution 175 mcg (3 mL) inhal ation QDAY #90 04/15/24 07/15/24 Rx for nebulization (Yupelri) mL ipratropium 0.5 mg-albuterol 3 mg 3 ml inhalation Q4H PRN PRN SOB 05/20/24 07/15/24 Rx (2.5 mg base)/3 mL nebulization &/OR WHEEZING #360 mL soln fludrocortisone 0.1 mg tablet 0.2 mg (2 x 0.1 mg) PO Q AM #180 05/26/24 07/15/24 Rx tabs ropinirole 0.5 mg tablet 0.5 mg PO TID #90 tabs 05/2607/15/24 Rx guaifenesin 1,200 mg tablet, 1,200 mg PO .QD #30 tabs 05/27/24 07/15/24 Rx extended release 12 hr (Mucinex) prednisone 10 mg tablet 10 mg PO QDAY #30 tabs 07/1507/15/24 Rx Have you fallen in the past year?: Yes PFSH Medical History Transient hypotension Acute dyspnea Acute exacerbation of chronic obstructive pulmonary disease Fall Debility BPH (benign prostatic hyperplasia) GERD (gastroesophageal reflux disease) Dysphagia Vocal cord dysfunction (HFpEF) heart failure with preserved ejection fraction Carotid artery disease Dizziness Hypokalemia Hypoxia Asthma-COPD overlap syndrome Hyperlipidemia COPD (chronic obstructive pulmonary disease) Carotid artery stenosis Osteoarthritis of right hip Angioedema Diastolic dysfunction Throat clearing Moist mucous membranes of ear, nose, and throat Cough Oral thrush Carotid artery, internal, occlusion MARYJO (obstructive sleep apnea) Smoking greater than 30 pack years Chronic diastolic (congestive) heart failure Orthostatic hypotension Fatigue Hypersomnia Parkinson's disease Mild cognitive impairment Benign localized hyperplasia of prostate with urinary obstruction and lower urinary tract symptoms Weak urinary stream Urinary frequency Urge incontinence of urine Tobacco abuse counseling Tobacco abuse Shortness of breath on exertion Snoring Postoperative hypothyroidism Observed sleep apnea Nocturia Laryngeal spasm Hypertension Hypercholesterolemia Hoarseness of voice Elevated brain natriuretic peptide (BNP) level Elevated troponin level Fungal infection Change in voice CAD (coronary artery disease) Breathing difficult Bradycardia ACS (acute coronary syndrome) Asthma History of nuclear stress test Acute deep vein thrombosis of lower extremity Abnormal CT of the chest Dyspnea Wears glasses Alcohol use Arthritis DVT (deep venous thrombosis) Gastric reflux Smoker Cricopharyngeal dysphagia Parasomnia Bilateral hearing loss Spasm of vocal cords High cholesterol Hypothyroidism Surgical History Status post tracheostomy 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 artery (~06/06/21) H/O cardiac catheterization (~06/06/21) Hx of arthroscopy of knee H/O knee surgery H/O thyroidectomy Family History Father COPD (chronic obstructive pulmonary disease) Emphysema lung Myocardial infarction Mother Parkinsons disease Malignant melanoma Social History household members: spouse Smoking Status: Former smoker Tobacco: How many years used: 45 second hand exposure: Yes alcohol intake: former substance use type: does not use caffeine: Yes (daily) Type: coffee Number of servings: 2 what type of physical activity do you participate in: walking seatbelt use: sometimes Review of Systems Resp Respiratory: Yes as per HPI Exam Const Constitutional: Positive cooperative, in no acute respiratory distress, healthy appearing, well developed, well nourished and good hygiene Head Head: Yes normocephalic, Yes atraumatic and No cyanosis of lips/distal nose Eyes Eye: Positive clear conjunctiva; Negative nystagmus Ears Ear: Positive hearing normal and external ears normal Nose Nose: Yes external nose normal Mouth Mouth: Positive oral mucosae normal and poor dentition Neck Neck: Positive normal visual inspection, full ROM, trachea midline and other (Tracheostomy dry and intact) Chest Wall Chest: Positive normal inspection of the chest and symmetric chest movement Resp lung sounds: Positive diminished lung sounds, wheezes (Inspiratory and expiratory), rales and normal chronic state of increased work of breathing; Negative rhonchi or use of accessory muscles Cardio Cardiac: Positive regular rate, regular rhythm, S1 normal and S2 normal; Negative murmur, rub or gallop GI GI: Positive normal to inspection Musc Musculoskeletal: Positive steady gait; Negative kyphosis or scoliosis Skin Pulmonary Skin Exam: Positive intact; Negative lesion, rash, ulcers or erythema Pulses Pulse: Yes radial pulses present Extremities Extremities: Yes capillary refill normal, No clubbing, No cyanosis and No edema Neuro Neurologic: Yes no focal neuro deficits, Yes cooperative, Yes normal cognition, Yes normal coordination, Yes normal concentration and Yes understands questions Psych Appearance: Positive grossly normal, eye contact and well kempt Mental Status: Positive mental status grossly normal Mood: Positive congruent mood Affect: Positive normal affect Coding Level of Care Code Off vis,est,level 4 Diagnoses Asthma-COPD overlap syndrome J44.89 MARYJO (obstructive sleep apnea) G47.33 Clinical Quality Measures Falls Risk Screening/Assistive Devices Have you fallen in the past year?: Yes 07/15/24 0520 <Electronically signed by Tita M Rufe ner COMMERCIAL DESIGNER-C> Date _ Tita Wick COMMERCIAL DESIGNER-C Cosignjesse Signature: Date (if applicable) CC: ~ [facility] Work Phone: [phone]) 930-567205-28-2025 [facility] [place] [address] [place], [place] [address] OFFICE VISIT Date of Service: 07/15/24 MR#: [id number] Acct: [id number] Name: FREDDIE COLE Rep #: [id number] : 1960 Provider: Tita jaramillo NP Age/Sex: 64/M Location[place] [facility] Status: Signed Assessment and Plan Assessment and Plan (1) Asthma-COPD overlap syndrome: Status: Chronic Plan: PFT shows worsening disease when compared to previous. Current PFT shows both restrictive and obstructive disease. The obstructive disease is likely due to the asthma and COPD. The restrictive lung disease could be due to Parkinson's disease versus a newly developed pulmonary disease such as interstitial lung disease. I have recommended that the patient complete a chest CT at this time, closely monitoring for evidence of chronic aspiration. The patient should continue to follow closely with neurology. The patient may benefit from closelyfollowing his 6-minute walk test due to the degree of desaturation from last study but the patient does not require supplemental oxygen at this time. Continue with use of long-acting triple therapy including budesonide, Perforomist, Yupelri, this is a fullregiment to treat COPD. Use DuoNebs on an as-needed basis. Continue Mucinex 1200 mg once daily with a full glass of water. NIOX was unable to be obtained in the past so it was not attempted today. I have given the patient a prednisone taper today to determine if this improves his respiratory symptoms. If there has been improvement with the oral prednisone then the patient will likely benefit from consideration of test prior. The patient has been given information regarding his biologic. Pulmonary rehab was offered to the patient today and he has agreed to proceed. This will be discussed with Dr. Munoz. (2) MARYJO (obstructive sleep apnea): Status: Chronic Plan: History of obstructive sleep apnea, currently treated with tracheostomy. Continue to follow with [facility]. Orders: Orders Chest without Contrast Today R06.02 - Shortness of breath Medications: New prednisone take 4 tabs for three days, then 3 tabs for three days, then 2 tabs for threedays, then 1 tab for 3days 10 mg PO QDAY 30 tabs 0RF prednisone take 4 tabs for three days, then 3 tabs for three days, then 2 tabs for threedays, then 1 tab for 3days 10 mg PO QDAY 30 tabs 0RF Plan Details Follow Up: 6 Weeks (LMR) HPI HPI Comments Details: Patient is a 64-year-old male who presents to the office today for follow-up of his asthma/COPD overlap syndrome with vocal cord dysfunction, obstructive sleep apnea with hypoxia status post tracheostomy. He is ambulatory, currently on room air and accompanied today by his . Justyna 2024 he went to ER for influenza A and treated with prednisone burst and antibiotic. Still coughing from illness and patient and spouse do not feel that he is back to baseline. Suctioning 3 times per day mostly clear, occasionally brown. Still follows with ENT at [facility] and they change out the trach,it is due to be changed next month. This patient was last hospitalized at [facility] from August 12 through August 15, 2023 with exacerbation of COPD and orthostatic hypotension. Patient reports that he no longer requires the use of oxygen. He states that when he was hospitalized at [facility] it was determined that he did not require supplemental oxygen with ambulation or sleep. He is compliant with the use of budesonide nebulized at 1pm and 8pm, formoterol at 7am and 5pm, Yupelri 10:30am. With the [employer] program he has been able to obtain his medications. He has not required Duo Neb. In the past he used Trelegy and reports that it was beneficial to him. Initially he wasnot using the medications as recommended and mixing some that were not supposed to be mixed and he felt worse . Recently the timing of the medications and dosages were adjusted and the patient has started to receive benefit from triple therapynebulized. He has stopped using Mucinex. He is having difficulty with swallowing and choking on food. A swallow study has been initiated by neurology. He feels like his Parkinson's disease is progressing. He reports that his shortness of breath occurs at rest and exertion. He is concerned that his shortness of breath is worsening as he is noticing when he iswalking to the mailbox he will have shortness of breath. He indicates that he does feel better after midmorning. He feels like he has secretionsin his chestright upon awakening. He has difficulty clearing these. He occasionally hears some wheezing. He does experience chest tightness. He does have a productive cough of clear 2 tannish sputum,he will suction 3 times daily. He has noticed more sinus and chest congestion in the last few weeks. He denies any chest painor palpitations. He has not had any fever, chills or body aches. He believes that in the past oral prednisone has helped improve his breathing. He no longer requires use of his PAP device due to the tracheostomy. Documentation reviewed with patient today includes: PFT from June 29, 2024 shows irreversible very severe mixed ventilatory defect. Diffusion capacity was unable to be obtained. 6-minute walk test from July 02, 2024 shows the jad oxygen saturation at 90% and there is evidenceof impaired walk distance. There is no significant exertional oxygen desaturation. There is no indication for the use of supplemental oxygen at this time Intake Vital Signs 05/27/24 08:22 07/15/24 08:22 Height 5 ft 9 in 5 ft 9 in Weight: 203 lb BMI 29.9 BP 126/83 H Blood Pressure Location Rt brachial Position Sitting Respiration 20 H Pulse 78 Pulse Source Monitor Temp 97.8 F Temperature Source Temporal Artery Pulse Oximetry (%) 94 Oxygen Delivery Method room air Intake Visit Reasons: 6-8 wk f u Chief Complaint: Asset Specialist Required: No Accompanied by: Is patient in pain?: No Allergies vibegron (From Gemtesa) Allergy (Severe, Verified 07/15/24 13:50) Rash Medications ?Medication ?Instructions ?Recorded ?Confirmed ?Type levothyroxine 150 mcg tablet 150 mcg PO DAILY thyroid 01/13/21 07/15/24 History (Synthroid) aspirin 81 mg chewable tablet 81 mg PO DAILY heart hea lth 01/24/22 07/15/24 History (Luis Alberto Chewable Low Dose Aspirin) tamsulosin 0.4 mg capsule 0.4 mg PO DAILY prostate 07/15/24 History Handicap placard #1 ea 10/01/22 07/15/24 Rx carbidopa 25 mg-levodopa 100 mg 2 tab PO TID parkinson s #540 tabs 10/01/23 07/15/24 Rx tablet budesonide 1 mg/2 mL suspension 1 mg (2 mL) inhalation BID 10/17/23 07/15/24 Rx for nebulization breathing #120 mL nitrofurantoin 100 mg PO MOWEFR bladder 04/1307/15/24 History monohydrate/macrocrystals 100 mg capsule furosemide 40 mg tablet (Lasix) 20 mg (1/2 x 40 mg) PO 1200 PRN 11/02/23 07/15/24 Rx Leg swelling 30 days #0 tabs atropine 1 % eye drops See Rx Instructions buccal D AILY 03/18/24 07/15/24 Rx secretions #10 mL clopidogrel 75 mg tablet 75 mg PO DAILY anit platelet #90 04/06/24 07/15/24 Rx tabs potassium chloride 20 mEq 20 meq PO DAILY supplement # 90 tabs 04/07/24 07/15/24 Rx tablet,extended release rosuvastatin 5 mg tablet 5 mg PO DAILY cholesterol #9 0 tabs 04/10/24 07/15/24 Rx formoterol fumarate 20 mcg/2 mL 2 ml inhalation BID #1 20 mL 04/15/24 07/15/24 Rx solution for nebulization (Perforomist) nebulizer kits #1 ea 04/15/24 07/15/24 Rx revefenacin 175 mcg/3 mL solution 175 mcg (3 mL) inhal ation QDAY #90 04/15/24 07/15/24 Rx for nebulization (Yupelri) mL ipratropium 0.5 mg-albuterol 3 mg 3 ml inhalation Q4H PRN PRN SOB 05/20/24 07/15/24 Rx (2.5 mg base)/3 mL nebulization &/OR WHEEZING #360 mL soln fludrocortisone 0.1 mg tablet 0.2 mg (2 x 0.1 mg) PO Q AM #180 05/26/24 07/15/24 Rx tabs ropinirole 0.5 mg tablet 0.5 mg PO TID #90 tabs 05/2607/15/24 Rx guaifenesin 1,200 mg tablet, 1,200 mg PO .QD #30 tabs 05/27/24 07/15/24 Rx extended release 12 hr (Mucinex) prednisone 10 mg tablet 10 mg PO QDAY #30 tabs 07/1507/15/24 Rx Have you fallen in the past year?: Yes PFSH Medical History Transient hypotension Acute dyspnea Acute exacerbation of chronic obstructive pulmonary disease Fall Debility BPH (benign prostatic hyperplasia) GERD (gastroesophageal reflux disease) Dysphagia Vocal cord dysfunction (HFpEF) heart failure with preserved ejection fraction Carotid artery disease Dizziness Hypokalemia Hypoxia Asthma-COPD overlap syndrome Hyperlipidemia COPD (chronic obstructive pulmonary disease) Carotid artery stenosis Osteoarthritis of right hip Angioedema Diastolic dysfunction Throat clearing Moist mucous membranes of ear, nose, and throat Cough Oral thrush Carotid artery, internal, occlusion MARYJO (obstructive sleep apnea) Smoking greater than 30 pack years Chronic diastolic (congestive) heart failure Orthostatic hypotension Fatigue Hypersomnia Parkinson's disease Mild cognitive impairment Benign localized hyperplasia of prostate with urinary obstruction and lower urinary tract symptoms Weak urinary stream Urinary frequency Urge incontinence of urine Tobacco abuse counseling Tobacco abuse Shortness of breath on exertion Snoring Postoperative hypothyroidism Observed sleep apnea Nocturia Laryngeal spasm Hypertension Hypercholesterolemia Hoarseness of voice Elevated brain natriuretic peptide (BNP) level Elevated troponin level Fungal infection Change in voice CAD (coronary artery disease) Breathing difficult Bradycardia ACS (acute coronary syndrome) Asthma History of nuclear stress test Acute deep vein thrombosis of lower extremity Abnormal CT of the chest Dyspnea Wears glasses Alcohol use Arthritis DVT (deep venous thrombosis) Gastric reflux Smoker Cricopharyngeal dysphagia Parasomnia Bilateral hearing loss Spasm of vocal cords High cholesterol Hypothyroidism Surgical History Status post tracheostomy 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 artery (~06/06/21) H/O cardiac catheterization (~06/06/21) Hx of arthroscopy of knee H/O knee surgery H/O thyroidectomy Family History Father COPD (chronic obstructive pulmonary disease) Emphysema lung Myocardial infarction Mother Parkinsons disease Malignant melanoma Social History household members: spouse Smoking Status: Former smoker Tobacco: How many years used: 45 second hand exposure: Yes alcohol intake: former substance use type: does not use caffeine: Yes (daily) Type: coffee Number of servings: 2 what type of physical activity do you participate in: walking seatbelt use: sometimes Review of Systems Resp Respiratory: Yes as per HPI Exam Const Constitutional: Positive cooperative, in no acute respiratory distress, healthy appearing, well developed, well nourished and good hygiene Head Head: Yes normocephalic, Yes atraumatic and No cyanosis of lips/distal nose Eyes Eye: Positive clear conjunctiva; Negative nystagmus Ears Ear: Positive hearing normal and external ears normal Nose Nose: Yes external nose normal Mouth Mouth: Positive oral mucosae normal and poor dentition Neck Neck: Positive normal visual inspection, full ROM, trachea midline and other (Tracheostomy dry and intact) Chest Wall Chest: Positive normal inspection of the chest and symmetric chest movement Resp lung sounds: Positive diminished lung sounds, wheezes (Inspiratory and expiratory), rales and normal chronic state of increased work of breathing; Negative rhonchi or use of accessory muscles Cardio Cardiac: Positive regular rate, regular rhythm, S1 normal and S2 normal; Negative murmur, rub or gallop GI GI: Positive normal to inspection Musc Musculoskeletal: Positive steady gait; Negative kyphosis or scoliosis Skin Pulmonary Skin Exam: Positive intact; Negative lesion, rash, ulcers or erythema Pulses Pulse: Yes radial pulses present Extremities Extremities: Yes capillary refill normal, No clubbing, No cyanosis and No edema Neuro Neurologic: Yes no focal neuro deficits, Yes cooperative, Yes normal cognition, Yes normal coordination, Yes normal concentration and Yes understands questions Psych Appearance: Positive grossly normal, eye contact and well kempt Mental Status: Positive mental status grossly normal Mood: Positive congruent mood Affect: Positive normal affect Coding Level of Care Code Off vis,est,level 4 Diagnoses Asthma-COPD overlap syndrome J44.89 MARYJO (obstructive sleep apnea) G47.33 Clinical Quality Measures Falls Risk Screening/Assistive Devices Have you fallen in the past year?: Yes 07/15/24 2215 ner COMMERCIAL DESIGNER-C> Date _ Tita Frederick Signature: Date (if applicable) CC: ~ [facility]05-23-2025 Procedure note [facility] Speech Pathology [address] [place] [address] Modified Barium Swallow Study MR#: [id number] Acct: [id number] Name: FREDDIE COLE Rep #:[id number] : 1960 64 From: Lucy tucker M.A. [facility]-BOIL[facility] TESTER Modified Barium Swallow Patient Information Study Date: 07/10/24 Study Time: 13:00 Direct Billable Minutes: 75 Total Minutes procedure & reportin Diagnosis: R13.10 - Dysphagia; G20.A1 - Parkinson's disease w/o dyskinesia Referring Physician: Christian Hernandez Reason for Referral: Objectively assess swallow function, assess risk for aspiration, and determine recommendations for least restrictive diet textures and compensatory strategies to improve swallow safety. Medical History: Abnormal CT of the chest, ACS (acute coronary syndrome), Acute deep vein thrombosis of lower extremity, Acute dyspnea, Acute exacerbation of chronic obstructive pulmonary disease, Alcohol use, Angioedema, Arthritis, Asthma, Asthma-COPD overlap syndrome, Benign localized hyperplasia of prostate with urinary obstruction and lower urinary tract symptoms, BPH (benign prostatic hyperplasia), Bilateralhearing loss, Bradycardia, Breathing difficult, CAD (coronary artery disease), Carotid artery disease, Carotid artery stenosis, Carotid artery, internal, occlusion, Change in voice, Chronic diastolic (congestive) heart failure, COPD (chronic obstructive pulmonary disease), Cough,Cricopharyngeal dysphagia, Debility, Diastolic dysfunction, Dizziness, DVT (deepvenous thrombosis), Dysphagia, Dyspnea,Elevated brain natriuretic peptide (BNP)level, Elevated troponin level, Fall, Fatigue, Fungal infection, Gastric reflux,GERD (gastroesophageal reflux disease), High cholesterol, Hoarseness of voice, Hypercholesterolemia, Hyperlipidemia, Hypersomnia, Hypertension, Hypokalemia, Hypothyroidism, Hypoxia, Laryngeal spasm, Mild cognitive impairment, Moist mucous membranes of ear, nose, and throat, Multiple System Atrophy (MSA), Nocturia, Observed sleep apnea, Oral thrush, Orthostatic hypotension, Osteoarthritis of right hip, MARYJO (obstructive sleep apnea), Parasomnia, Parkinson's disease, (HFpEF) heart failure with preserved ejection fraction, Postoperative hypothyroidism, Shortness of breath on exertion, Smoker, Smoking greater than 30 pack years, Snoring, Spasm of vocal cords, Throat clearing,Tobacco abuse, Tobacco abuse counseling, Transient hypotension, Urge incontinence of urine, Urinaryfrequency, Vocal cord dysfunction, Weak urinary stream, Wears glasses. Current Diet Ordered: regular/thin Dentition: Natural Teeth Mental Status: WNL Comment: Prior MBSS: MBSS 08/30/20 revealed mild oropharyngeal dysphagia with recommendations for Regular textures / Thinliquids with strategies to decrease risk for aspiration:Thorough mastication, Small Bites, Small Sips, No Straws, Slow Rate, Sitting upright, Remain sitting upright for 30 minutes after PO intake. Hewas recommended for GI consult due to mild retrograde flow of bolus and mild esophageal retention, as well as address concern for cricopharyngeal bar noted in impressions., ENT Consult. ? He followed with GI and had EGD 11/23/20, which revealed non-severe esophagitis. ? MBSS 08/14/23 revealed mild pharyngeal dysphagia R13.13 w/ recommendations for Regular Textures and Thin Liquids w/ the following compensatory strategies recomemnded: Small Bites, Small Sips, Slow Rate, Sitting upright and Remain sitting upright for 30 minutes after PO intake Respiratory Status: Oxygenating on Room Air (via trach w/ speaking valve in place) Penetration-Aspiration Scale Penetration-Aspiration Scale: OBJECTIVE ASSESSMENT OF SWALLOW FUNCTION (QUANTITATIVE ? PER TRIAL): PENETRATION / ASPIRATION SCALE (GROSS): 1 = does not enter airway 2 = enters airway/above vocal folds/ejected 3 = enters airway/above vocal folds/not ejected 4 = enters airway/contacts vocal folds/ejected 5 = enters airway/contacts vocal folds/not ejected 6 = enters airway/below vocal folds/ejected 7 = enters airway/below vocal folds/not ejected despite effort 8 = enters airway/below vocal folds/no effort Penetration-Aspiration Scale Score Thin Liquid via teaspoon: Result: 1= does not enter airway Thin Liquid via teaspoon Trial 2: Result: 1= does not enter airway Thin Liquid via small single sip: cup: Result: 1= does not enter airway Thin Liquid via sequential sips: cup: Result: 1= does not enter airway Thin Liquid via single sip: straw: Result: 1= does not enter airway Pudding: Result: 1= does not enter airway Cookie: Result: 1= does not enter airway Oral Phase Labial Seal: Interlabial escape, no progression to anterior lip Tongue Control During Bolus Hold: Cohesive bolus between tongue to palatal seal Bolus Preparation/Mastication: Slow prolonged chewing/mashing with complete recollection Bolus Transport/Lingual Motion: Repetitive/disorganized tongue motion Oral Residue: Trace residue lining oral structures Pharyngeal Phase Initiation of Pharyngeal Swallow: Bolus head at posterior laryngeal surgace of epiglottis Soft Palate Elevation: No bolus between soft palate and pharyngeal wall Laryngeal Elevation: Comp. Superior move thyroid cart w/comp. apprx arytenoid cart-epig pet Anterior Hyoid Excursion: Partial anterior movement Epiglottic Movement: Complete inversion Laryngeal Vestibule Closure at Height of Swallow: Complete; no air/contrast in laryngeal vestibule Pharyngeal Stripping Wave: Present - complete Pharyngoesophageal Segment Opening: Parital distension and partial duration; parital obstruction offlow Tongue Base Retraction: Narrow column of contrast between tongue base & post. pharyngeal wall Pharyngeal Residue: Trace residue within or on pharyngeal structures Esophageal Phase Esophageal Clearance: Esophageal retention w/ retrograde flow through pharyngoesophageal seg Diagnosis/Impression Diagnosis: mild oropharyngeal dysphagia R13.12 Impression: The oral phase is characterized by... * slowed mastication of solids * repetitive rocking lingual motion appreciated w/ AP transportation The pharyngeal phase is characterized by... * minimal anterior hyoid movement appreciated, although this did not impact laryngeal vestibule closure/airway protection The esophageal phase is characterized by... * patulous appearing esophagus * prominent cricopharyngeal hypertrophy * esophageal retention appreciated w/ transient retrograde flow through the PES and into the pyriforms (noted w/ sequential swallows of liquid only) Recommendations Diet: Regular Textures and Thin Liquids Compensatory Strategies: Small Bites, Small Sips, Alternate bites/solids and sips/liquids and Remain sitting upright for 30 minutes after PO intake Recommend Repeat Modified Barium Swallow: Yes (repeat at reasonable intervals toassess function d/tprogressive nature of Multiple System Atrophy (MSA)) Comment: repeated MBSS at reasonable intervals d/t progressive nature of Multiple System Atrophy (MSA) / Parkinson's Disease (PD) Need for Skilled Speech Therapy Services: No Recommended Referrals: GI Consult Education Completed: 1. Described result of evaluation. and 2. Pt understands evaluation & agrees with goals and treatment plan. Status Active ST Patient: Active Contact Information [facility] Speech Therapy:: Lucy Kumar M.A. BOILER TESTER Speech-Language Pathologist [facility] [address] [place] [address] [email or web address] [phone] 07/10/24 1401 buck Freedman, CCC-BOILER TESTER> Date/Time Lucy Kumar M.A., CCC-BOILER TESTER Co-Signature Required for all Medicare patients Date/Time Co-Signature CC: ~ [facility]05-16-2025 Procedure notey [facility] Pulmonary Services/Neurology [address] [place] [address] MR#: [id number] Acct: [id number] Name: FREDDIE COLE Rep #:[id number] : 1960 64 From: Richard Munoz DO Referring Dr: Tita Wick COMMERCIAL DESIGNER-C Status: REG CLI Location: PSN Date: Sex: M C PSN 6 Minute Walk Test 6 Minute Walk Test 6 Minute Walk Test: 6 Minute Walk Test PSN:6-Minute Walk Test Start: 07/02/24 12:50 Freq: Status: Active Protocol: RESP.6MINW Document 07/02/24 12:51 GUALBERTOON (Rec: 07/02/24 12:54 SFENTON [email or web address]) 6 Minute Walk Test Date Performed 07/02/24 Time Performed 12:30 Height 5 ft 9 in Weight: 200 lb Weight in Pounds 200.[address]: Tita Wick Assistive device None used: Pre-test Oxygen Delivery Room Air Method Pulse Ox (%) 91 Pulse Rate (60-100 85 beats/min) Dyspnea Gianna Scale ( 0 0-10) Exertion Gianna Scale 6 (6-20) 1st minute Oxygen Delivery Room Air Method Pulse Ox (%) 91 Pulse Rate (60-100 100 beats/min) 2nd minute Oxygen Delivery Room Air Method Pulse Ox (%) 90 Pulse Rate (60-100 99 beats/min) 3rd minute Oxygen Delivery Room Air Method Pulse Ox (%) 90 Pulse Rate (60-100 99 beats/min) 4th minute Oxygen Delivery Room Air Method Pulse Ox (%) 90 Pulse Rate (60-100 111 H beats/min) 5th minute Oxygen Delivery Room Air Method Pulse Ox (%) 91 Pulse Rate (60-100 114 H beats/min) 6th minute Oxygen Delivery Room Air Method Pulse Ox (%) 91 Pulse Rate (60-100 115 H beats/min) Dyspnea Gianna Scale ( 2 0-10) Exertion Gianna Scale 12 (6-20) Post-test Oxygen Delivery Room Air Method Pulse Ox (%) 93 Pulse Rate (60-100 89 beats/min) Full Laps Walked 12 Partial Lap, Number 47 of Tiles Walked Total Distance 755 Walked (ft) Interpretation Interpretation: The patient ambulated 755 feet over the course of 6 minutes beginning on room air without assistivedevices. Pretesting oxygen saturation was noted to be 91%on room air. With ambulation, the jad oxygen saturation was 90%. Although there was evidence of impaired walk distance, there was no significant exertional oxygen desaturation. Recommendations Recommendations: There is no indication for the use of supplemental oxygen at this time. 07/03/24 1113 O> Date _ Richard Munoz DO CC: ~ Date Dictated: 07/03/24 1112 Date Transcribed: 07/03/241111 Medical Associate: Dr. Richard Munoz DO Signed [facility]05-07-2025 History of Present illness Narrative* Abbie Galvan MD - 06/24/2024 11:20 AM EDT 64 year old male presents for follow-up of bilateral vocal fold paralysis. He is S/P tracheostomy in August 2023. He is doing well with his trach. He has occasional dysphagia with some gulping sounds when swallowing. His voice is a bit raspy and weak at times. He has some thicker mucous at times. He denies any hemoptysis. He denies any recent URI. He was diagnosed with Parkinson's Disease in 2022. He had a thyroidectomy in 1998. He had Grave's disease and hyperthyroidism. He has a history of MARYJO and uses CPAP nightly. He has a history of CAD and coronary stent. He takes Plavix daily. He has a history of tobacco use. He quit tobacco in 2021. He used to smoke about 1 ppd. ROS: Constitutional: Negative for fever, weight loss and weight gain. Cardiovascular: Negative for chest pain and positive dyspnea on exertion. Respiratory: Is experiencing shortness of breath at rest. Gastrointestinal: Negative for nausea and vomiting. Neurological: Negative for headaches. Psychiatric: The patient is not nervous/anxious. The PMH, PSH, Medications, Allergies, and SH were reviewed and updated. Exam: General: Well-developed, well-nourished Communication and Voice: Mild raspiness with PMV in place Respiratory Respiratory effort: Equal inspiration and expiration without stridor Cardiovascular Peripheral Vascular: Warm extremities with equal color/perfusion Eyes: No nystagmus with equal extraocular motion bilaterally Neuro/Psych/Balance: Patient oriented to person, place, and time; Appropriate mood and affect; Gaitis intact with moderate imbalance; Cranial nerves I-XII are intact Head and Face Inspection: Normocephalic and atraumatic without mass or lesion Palpation: Facial skeleton intact without bony stepoffs Salivary Glands: No mass or tenderness Facial Strength: Facial motility symmetric and full bilaterally ENT Pinna: External ear intact and fully developed External canal: Canal is patent with intact skin Tympanic Membrane: Clear and mobile External Nose: No scar or anatomic deformity Internal Nose: Septum intact and midline. No edema, polyp, or rhinorrhea Lips, Teeth, and gums: Mucosa and teeth intact and viable TMJ: No pain to palpation with full mobility Oral cavity/oropharynx: No erythema or exudate, no lesions present Nasopharynx: No mass or lesion with intact mucosa Hypopharynx: Intact mucosa without pooling of secretions Larynx Unable to fully visualize Neck Neck and Trachea: Midline trachea without mass or lesion. 6 Angeles alcaraz changed today along with Pretty Gracia CNP without difficulty. Stoma patent. Thyroid: No mass or nodularity, thyroidectomy scar Lymphatics: No lymphadenopathy Assessment/Plan: Bilateral vocal fold paralysis, immobility Trach dependence Parkinson's Disease He is doing well with his tracheostomy tube and feels better with his breathing. He will follow-up in 3 months for trach change. We reviewed trach care today and I instructed his family on how to change the trach. * Brooklyn Zuleta RN - 06/24/2024 11:20 AM EDT Trach changed using HC TUBE TRACH CUFFLESS 7.5MM SHILEY FLEX [id number] documented in this [facility]04-08-2025 Evaluation note * Diagnosis Onset Date Resolution Status Admit Date Parkinson's disease chronic May 26, 2024 1:00pm Shy-Drager syndrome chronic May 26, 2024 1:00pm Carotid artery, internal, occlusion inactive May 26, 2024 1:00pm Dysphagia inactive May 26 1:00pm Asthma-COPD overlap syndrome chronic May 27, 2024 1:45pm MARYJO (obstructive sleep apnea) chroni c May 27, 2024 1:45pm Asthma-COPD overlap syndrome chronic July 15, 2024 1:42pm MARYJO (obstructive sleep apnea) chroni c July 15, 2024 1:42pm Parkinson's disease chronic July 23, 2024 11:31am Shy-Drager syndrome chronic July 23, 2024 11:31am Carotid artery, internal, occlusion inactive July 23, 2024 1 1:31am Dysphagia inactive July 23, 2024 11:31am [facility] Work Phone: 1(330) 465-529802-26-2025 Evaluation note* Diagnosis Onset Date Resolution Status Admit Date Asthma-COPD overlap syndrome chronic April 15, 2024 11:10am MARYJO (obstructive sleep apnea) chronic April 15, 025 11:10am Dysphagia acute May 26 1:00pm Parkinson's disease chronic May 26, 2024 1:00pm Shy-Drager syndrome chronic May 26, 2024 1:00pm Carotid artery, internal, occlusion inactive May 26, 2024 1:00pm Asthma-COPD overlap syndrome chronic May 27, 2024 1:45pm MARYJO (obstructive sleep apnea) chronic May 27, 2024 1:45pm Asthma-COPD overlap syndrome chronic July 15, 2024 1:42pm MARYJO (obstructive sleep apnea) chronic July 15, 2024 1 :42pm Dysphagia acute July 23, 2024 11:31am Parkinson's disease chronic July 23, 2024 11:31am Shy-Drager syndrome chronic July 23, 2024 11:31am Carotid artery, internal, occlusion inactive July 23, 2024 1 1:31am [facility] Work Phone: 1(428) 277-779302-12-2025 Evaluation note* Diagnosis Onset Date Resolution Status Admit Date CAD (coronary artery disease) chroni c April 01, 2024 1:48pm Carotid artery disease chronic Fe 2024 1:48pm COPD (chronic obstructive pulmonary disease) chronic March 1:48pm Hyperlipidemia chronic March 212024 1:48pm MARYJO (obstructive sleep apnea) chroni c April 01, 2024 1:48pm 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, chronic April 01, 2024 1:48pm Hypertension resolved March 1:48pm Asthma-COPD overlap syndrome chronic April 15, 2024 11:10am MARYJO (obstructive sleep apnea) chroni c April 15, 2024 11:10am Dysphagia acute May 26 1:00pm Parkinson's disease chronic May 26, 2024 1:00pm Shy-Drager syndrome chronic May 26, 2024 1:00pm Carotid artery, internal, occlusion inactive May 26, 2024 1:00pm Asthma-COPD overlap syndrome chronic May 27, 2024 1:45pm MARYJO (obstructive sleep apnea) chroni c May 27, 2024 1:45pm Asthma-COPD overlap syndrome chronic July 15, 2024 1:42pm MARYJO (obstructive sleep apnea) chroni c July 15, 2024 1:42pm [facility] Work Phone: 1(562) 861-419702-05-2025 History of Present illness Narrative* Abbie Galvan MD - 03/25/2024 11:20 AM EST 63 year old male presents for follow-up of bilateral vocal fold paralysis. He is S/P tracheostomy in August 2023. He is doing well with his trach. He had influenza A last month. He had to go to the ER. He was treated with steroids. He feels well now. No other new medical problems. He had mild trach mucous. Mild blood present as well. He is using his PMV to talk and doing well. He was diagnosed with Parkinson's Disease in 2022. He had a thyroidectomy in 1998. He had Grave's disease and hyperthyroidism. He has a history of MARYJO and uses CPAP nightly. He has a history of CAD and coronary stent. He takes Plavix daily. He has a history of tobacco use. He quit tobacco in 2021. He used to smoke about 1 ppd. ROS: Constitutional: Negative for fever, weight loss and weight gain. Cardiovascular: Negative for chest pain and positive dyspnea on exertion. Respiratory: Is experiencing shortness of breath at rest. Gastrointestinal: Negative for nausea and vomiting. Neurological: Negative for headaches. Psychiatric: The patient is not nervous/anxious. The PMH, PSH, Medications, Allergies, and SH were reviewed and updated. Exam: General: Well-developed, well-nourished Communication and Voice: Mild raspiness with PMV in place Respiratory Respiratory effort: Equal inspiration and expiration without stridor Cardiovascular Peripheral Vascular: Warm extremities with equal color/perfusion Eyes: No nystagmus with equal extraocular motion bilaterally Neuro/Psych/Balance: Patient oriented to person, place, and time; Appropriate mood and affect; Gaitis intact with moderate imbalance; Cranial nerves I-XII are intact Head and Face Inspection: Normocephalic and atraumatic without mass or lesion Palpation: Facial skeleton intact without bony stepoffs Salivary Glands: No mass or tenderness Facial Strength: Facial motility symmetric and full bilaterally ENT Pinna: External ear intact and fully developed External canal: Canal is patent with intact skin Tympanic Membrane: Clear and mobile External Nose: No scar or anatomic deformity Internal Nose: Septum intact and midline. No edema, polyp, or rhinorrhea Lips, Teeth, and gums: Mucosa and teeth intact and viable TMJ: No pain to palpation with full mobility Oral cavity/oropharynx: No erythema or exudate, no lesions present Nasopharynx: No mass or lesion with intact mucosa Hypopharynx: Intact mucosa without pooling of secretions Larynx Unable to fully visualize Neck Neck and Trachea: Midline trachea without mass or lesion. 6 Shiley trach changed today. Stoma patent. Thyroid: No mass or nodularity, thyroidectomy scar Lymphatics: No lymphadenopathy Assessment/Plan: Bilateral vocal fold paralysis, immobility Trach dependence Parkinson's Disease He is doing well with his tracheostomy tube and feels better with his breathing. He will follow-up in 3 months for trach change. We reviewed trach care today and I instructed his family on how to change the trach. They may help with his trach change at next visit. * Brooklyn Zuleta RN - 03/25/2024 11:20 AM EST Trach changed using HC TUBE TRACH CUFFLESS 7.5MM SHILEY FLEX [id number] documented in this [facility]01-27-2025 Evaluation note * Diagnosis Onset Date Resolution Status Admit Date Parkinson's disease chronic Febua 2024 11:36am 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 Carotid artery, internal, occlusion inactive March 16 11:36am CAD (coronary artery disease) chroni c April 01, 2024 1:48pm Carotid artery disease chronic Fe bruary 2024 1:48pm COPD (chronic obstructive pulmonary disease) chronic March 1:48pm Hyperlipidemia chronic March 212024 1:48pm MARYJO (obstructive sleep apnea) chroni c April 01, 2024 1:48pm Shy-Drager syndrome chronic Febru batsheva 2024 1:48pm 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, chronic April 01, 2024 1:48pm Hypertension resolved March 1:48pm Asthma-COPD overlap syndrome chronic April 15, 2024 11:10am MARYJO (obstructive sleep apnea) chroni c April 15, 2024 11:10am [facility] Work Phone: 1(778) 896-404201-27-2025 Evaluation note* Diagnosis Onset Date Resolution Status Admit Date Parkinson's disease chronic Janua 2024 11:36am 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 Carotid artery, internal, occlusion inactive March 16 11:36am CAD (coronary artery disease) chroni c April 01, 2024 1:48pm Carotid artery disease chronic Fe bruary 2024 1:48pm COPD (chronic obstructive pulmonary disease) chronic March 1:48pm Hyperlipidemia chronic March 212024 1:48pm MARYJO (obstructive sleep apnea) chroni c April 01, 2024 1:48pm Shy-Drager syndrome chronic Febru batsheva 2024 1:48pm 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, chronic April 01, 2024 1:48pm Hypertension resolved March 1:48pm Asthma-COPD overlap syndrome chronic April 15, 2024 11:10am MARYJO (obstructive sleep apnea) chroni c April 15, 2024 11:10am Dysphagia acute May 26 1:00pm Parkinson's disease chronic May 26, 2024 1:00pm Shy-Drager syndrome chronic May 26, 2024 1:00pm Carotid artery, internal, occlusion inactive May 26, 2024 1:00pm Asthma-COPD overlap syndrome chronic May 27, 2024 1:45pm MARYJO (obstructive sleep apnea) chroni c May 27, 2024 1:45pm [facility] Work Phone: 1(937) 389-548911-08-2024 History of Present illness Narrative* Abbie Galvan MD - 12/27/2023 11:00 AM EST 63 year old male presents for follow-up of bilateral vocal fold paralysis. He is S/P tracheostomy in August 2023. He is doing well with his trach. He feels his breathing is stable and doing well. He denies any sore throat or pain around the trach. He denies any drainage or bleeding. He denies any URI or other recent infection. He is using his PMV to talk and doing well. He was diagnosed with Parkinson's Disease in 2022. He had a thyroidectomy in 1998. He had Grave's disease and hyperthyroidism. He has a history of MARYJO and uses CPAP nightly. He has a history of CAD and coronary stent. He takes Plavix daily. He has a history of tobacco use. He quit tobacco in 2021. He used to smoke about 1 ppd. ROS: Constitutional: Negative for fever, weight loss and weight gain. Cardiovascular: Negative for chest pain and positive dyspnea on exertion. Respiratory: Is experiencing shortness of breath at rest. Gastrointestinal: Negative for nausea and vomiting. Neurological: Negative for headaches. Psychiatric: The patient is not nervous/anxious. The PMH, PSH, Medications, Allergies, and SH were reviewed and updated. Exam: General: Well-developed, well-nourished Communication and Voice: Mild raspiness with PMV in place Respiratory Respiratory effort: Equal inspiration and expiration without stridor Cardiovascular Peripheral Vascular: Warm extremities with equal color/perfusion Eyes: No nystagmus with equal extraocular motion bilaterally Neuro/Psych/Balance: Patient oriented to person, place, and time; Appropriate mood and affect; Gaitis intact with moderate imbalance; Cranial nerves I-XII are intact Head and Face Inspection: Normocephalic and atraumatic without mass or lesion Palpation: Facial skeleton intact without bony stepoffs Salivary Glands: No mass or tenderness Facial Strength: Facial motility symmetric and full bilaterally ENT Pinna: External ear intact and fully developed External canal: Canal is patent with intact skin Tympanic Membrane: Clear and mobile External Nose: No scar or anatomic deformity Internal Nose: Septum intact and midline. No edema, polyp, or rhinorrhea Lips, Teeth, and gums: Mucosa and teeth intact and viable TMJ: No pain to palpation with full mobility Oral cavity/oropharynx: No erythema or exudate, no lesions present Nasopharynx: No mass or lesion with intact mucosa Hypopharynx: Intact mucosa without pooling of secretions Larynx Unable to fully visualize Neck Neck and Trachea: Midline trachea without mass or lesion. 6 Shiley trach changed today. Stoma patent. Thyroid: No mass or nodularity, thyroidectomy scar Lymphatics: No lymphadenopathy Assessment/Plan: Bilateral vocal fold paralysis, immobility Trach dependence Parkinson's Disease He is doing well with his tracheostomy tube and feels better with his breathing. He will follow-up in 3 months for trach change. We reviewed trach care today and I instructed his family on how to change the trach. They will help with his trach change at next visit. documented [facility] NoteAcceptable Specimen? Acceptable Specimen(Evaluation not needed) Gram Stain 2+ White Blood Cells 2+ Gram positive cocci in chains and clusters Rare Gram positive rods Rare Yeast Like OrganismsWHolzer Health SystemComment on above:Performed By: #### M100.2400, M100.1999 ####[facility] [id number] [place], [phone] [facility]09-04-2024 [facility]09-03-2024 [facility]08-29-2024 History of Present illness Narrative* Cinthia Trammell MD - 10/17/2023 9:30 AM EDT Subjective Patient ID: Freddie Cole is a 63 y.o. male. HPI Patient is here for UTI. He was started on Macrodantin last week. He has been having hematuria and increased frequency. He has little bladder control. He has to wear depends daily due to the leakage.He is taking Flomax BID. He has failed Gemtesa and Myrbetriq. Most recent PSA was 0.72 on 06/11. Prior PSA was 0.42 on 03/12. . Prior PSA was 0.37 on 01/08. . ED is not an issue. He is taking Isosorbide. Review of Systems Constitutional: Negative for chills and fever. HENT: Negative. Eyes: Negative. Respiratory: Negative for cough and shortness of breath. Cardiovascular: Negative for chest pain and leg swelling. Gastrointestinal: Negative for nausea. Endocrine: Negative. Genitourinary: Negative for difficulty urinating. Negative except for documented in HPI Allergic/Immunologic: Negative. Neurological: Alert & oriented X 3 Hematological: Denies blood thinners Psychiatric/Behavioral: Negative. Objective Physical Exam Vitals and nursing note reviewed. Constitutional: General: He is not in acute distress. Appearance: Normal appearance. Pulmonary: Effort: Pulmonary effort is normal. Abdominal: Tenderness: There is no abdominal tenderness. Genitourinary: Comments: Kidneys non palpable bilaterally Bladder non palpable or tender Scrotum no mass, No hydrocele Epididymis- No spermatocele. Non Tender. Testicles: No mass. Symmetric Urethra: No discharge Penis within normal limits... No lesions Prostate - Deferred Neurological: Mental Status: He is alert. Assessment/Plan Diagnoses and all orders for this visit: Benign prostatic hyperplasia with urinary obstruction and other lower urinary tract symptoms Nocturia - POCT UA Automated manually resulted Erectile disorder Urinary incontinence, unspecified type All available PSA values reviewed, Options discussed. Questions answered. Diet changes for prostate health discussed and educational information given. Pros/Cons of prostatehealth supplements discussed. Treatment options for LUTS reviewed Continue Flomax Discussed UroLift Prostate U/S and Cysto scheduled Discussed timed voiding. Discussed fluid and caffeine intake Treatment options for ED reviewed. Lifestyle change to help prevent UTIs discussed. Encouraged fluid intake. UA reviewed Start Prophylaxis Macrodantin 100mg QMWF Renal U/S ordered Cysto scheduled F/U Cysto and prostate U/S After above visit I straight cathed patient for PVR-400ml of bloody urine Discussed patient doing CIC documented in this [facility] Work Phone: [phone] 826-307808-14-2024 History of Present illness Narrative* Abbie Galvan MD - 10/02/2023 9:20 AM EDT 63 year old male presents for follow-up of bilateral vocal fold paralysis. He is S/P tracheostomy in August 2023. He feels much better with his breathing. He is able to take a regular diet. He denies any pain around the trach. He has some mucous production but no drainage. He denies any bleeding at this point. His voice is doing well with using his PMV. He was diagnosed with Parkinson's Disease in 2022. He had a thyroidectomy in 1998. He had Grave's disease and hyperthyroidism. He has a history of MARYJO and uses CPAP nightly. He has a history of CAD and coronary stent. He takes Plavix daily. He has a history of tobacco use. He quit tobacco in 2021. He used to smoke about 1 ppd. ROS: Constitutional: Negative for fever, weight loss and weight gain. Cardiovascular: Negative for chest pain and positive dyspnea on exertion. Respiratory: Is experiencing shortness of breath at rest. Gastrointestinal: Negative for nausea and vomiting. Neurological: Negative for headaches. Psychiatric: The patient is not nervous/anxious. The PMH, PSH, Medications, Allergies, and SH were reviewed and updated. Exam: General: Well-developed, well-nourished Communication and Voice: Mild raspiness with PMV in place Respiratory Respiratory effort: Equal inspiration and expiration without stridor Cardiovascular Peripheral Vascular: Warm extremities with equal color/perfusion Eyes: No nystagmus with equal extraocular motion bilaterally Neuro/Psych/Balance: Patient oriented to person, place, and time; Appropriate mood and affect; Gaitis intact with moderate imbalance; Cranial nerves I-XII are intact Head and Face Inspection: Normocephalic and atraumatic without mass or lesion Palpation: Facial skeleton intact without bony stepoffs Salivary Glands: No mass or tenderness Facial Strength: Facial motility symmetric and full bilaterally ENT Pinna: External ear intact and fully developed External canal: Canal is patent with intact skin Tympanic Membrane: Clear and mobile External Nose: No scar or anatomic deformity Internal Nose: Septum intact and midline. No edema, polyp, or rhinorrhea Lips, Teeth, and gums: Mucosa and teeth intact and viable TMJ: No pain to palpation with full mobility Oral cavity/oropharynx: No erythema or exudate, no lesions present Nasopharynx: No mass or lesion with intact mucosa Hypopharynx: Intact mucosa without pooling of secretions Larynx Unable to fully visualize Neck Neck and Trachea: Midline trachea without mass or lesion. 6 Shiley trach changed today. Stoma patent. Thyroid: No mass or nodularity, thyroidectomy scar Lymphatics: No lymphadenopathy Assessment/Plan: Bilateral vocal fold paralysis, immobility Trach dependence Parkinson's Disease He is doing well with his tracheostomy tube and feels better with his breathing. He will follow-up in 3 months for trach change. We reviewed trach care today and I instructed his family on how to change the trach. They will help with his trach change at next visit. [facility]07[facility]07-20-2024 Nurse Note * Nursing Notes - Reyna Baltazar RN - 09/07/2023 11:16 AM EDT VSS, Aox4, patient denies pain, tolerating diet per baseline. Tracheostomy in place, no signs/symptoms of distress, respiratory treatment delivered per RT prior to discharge. Discharge instructions reviewed at bedside with patient and family, faxed ahead to [facility]. Attempted to call report to receiving facility with no answer, left message on secure voicemail with callback number. All questions/concerns addressed with patient and family, IV removed with no complications. Patient discharged via EMS with all medical supplies, personal belongings taken by family. Reyna Baltazar RN [facility]07-20-2024 Miscellaneous Notes* Nursing Notes - Reyna Baltazar RN - 09/07/2023 11:16 AM EDT VSS, Aox4, patient denies pain, tolerating diet per baseline. Tracheostomy in place, no signs/symptoms of distress, respiratory treatment delivered per RT prior to discharge. Discharge instructions reviewed at bedside with patient and family, faxed ahead to [facility]. Attempted to call report to receiving facility with no answer, left message on secure voicemail with callback number. All questions/concerns addressed with patient and family, IV removed with no complications. Patient discharged via EMS with all medical supplies, personal belongings taken by family. Reyna Baltazar RN * Plan of Care - RETA Gasca - 09/06/2023 8:30 AM EDT Problem: Speaking Valve Goal: Communication 1 - Patient will use respiration/phonation coordination strategies with no cuesto increase vocal intensity across 15 minutes while donning speaking valve and maintaining physiologic stability to improve functional communication Outcome: Ongoing * Plan of Care - Rudy Medley RN - 09/06/2023 5:22 AM EDT Problem: Adult Inpatient Plan of Care Goal: Plan of Care Review Outcome: Progressing Goal: Patient-Specific Goal (Individualized) Outcome: Progressing Goal: Absence of Hospital-Acquired Illness or Injury Outcome: Progressing Goal: Optimal Comfort and Wellbeing Outcome: Progressing Goal: Readiness for Transition of Care Outcome: Progressing Problem: OT - ADLs Goal: Bathing - Patient will perform full body bathing routine with independence while seated and standing for improved ability to complete self-care activities Outcome: Progressing Problem: OT - Endurance Goal: Endurance Functional Task Standing - Patient will engage in standing functional task for 10 minutes with independence to improve activity tolerance necessary for safe ADL completion at recommended discharge destination. Outcome: Progressing * Nursing Notes - EMILY Lorenzana - 09/05/2023 10:13 AM EDT Summary: Tracheostomy tube teaching Reason for consultation: Patient Education LOS: 3 Assessment- Freddie Cole seen by Clinical Nurse Specialist for tracheostomy tube discharge teaching needs. Daughter states her mom has done care twice and she has done once. Not comfortable with doing yet-need to continue to do. Offered to observe her do, but states she just completed the care. Discussed steps to safe showering. Plan of care- Clinical Nurse Specialist recommends reading patient education materials that were left yesterday. Left my phone number to call if they have questions. A total of 30 minutes were spent with patient and/or nurse. * Plan of Care - Gabrielle Conte RN - 09/05/2023 3:30 AM EDT Problem: Adult Inpatient Plan of Care Goal: Plan of Care Review Outcome: Progressing Goal: Patient-Specific Goal (Individualized) Outcome: Progressing Goal: Absence of Hospital-Acquired Illness or Injury Outcome: Progressing Goal: Optimal Comfort and Wellbeing Outcome: Progressing Goal: Readiness for Transition of Care Outcome: Progressing * Nursing Notes - Aislinn Gaitan RN - 09/04/2023 4:47 PM EDT Home Oxygen Qualification Patient: Freddie Cole Patient oxygen saturation at rest on room air is: 96% (2 minutes at rest, add oxygen if saturationsgo below 89% at rest) Placed on no oxygen via nasal cannula on patient at rest, oxygen saturation improved to: N/A Patient Oxygen saturation with exertion on room air is: 93% Placed on N/A L oxygen via nasal cannula on patient during exertion. Oxygen saturation improved to: N/A % (add oxygen if saturations go below 89%) N/A It is recommended that patient requires 0L of oxygen to maintain oxygen saturations at and above 88% with exertion. (if the patient requires 6L of oxygen or above to maintain oxygen saturations at or above 88%, documentation of the SPO2 when tested at 4L of oxygen is also required.) Patient is mobile at home and requires portability. * Nursing Notes - David Caruso RN - 09/04/2023 11:59 AM EDT Family teaching at bedside. completed trach inner cannula exchange, suction, and trach tie exchange. * Plan of Care - Cyndy Bello OT - 09/03/2023 7:54 AM EDT Problem: OT - ADLs Goal: Bathing - Patient will perform full body bathing routine with independence while seated and standing for improved ability to complete self-care activities Outcome: Ongoing Problem: OT - Endurance Goal: Endurance Functional Task Standing - Patient will engage in standing functional task for 10 minutes with independence to improve activity tolerance necessary for safe ADL completion at recommended discharge destination. Outcome: Ongoing * Nursing Notes - Reyna Ta RN - 09/02/2023 6:47 PM EDT On admission to [facility], from PACU a dual RN initial assessment of skin condition was performed by Reyna Ta RN and Nereyda Alvarez. Skin Assessment: Skin within defined limits:Yes Mg Score: 16 LDA Added:No Reyna Ta RN * Op Note - Efe Mcnulty MD - 09/02/2023 3:52 PM EDT Operative Report DATE OF SERVICE: 09/02/2023 PATIENT: Freddie Cole PREOPERATIVE DIAGNOSIS: 1. Bilateral true vocal fold paralysis POSTOPERATIVE DIAGNOSIS: 1. Bilateral true vocal fold paralysis PROCEDURE: 1. Tracheostomy SURGEON: Abbie Galvan MD BLEMISH REMOVER: Efe Mcnulty MD ANESTHESIA: General ESTIMATED BLOOD LOSS: 5 mL COMPLICATIONS: None CONDITION: To PACU in stable condition. INTRAOPERATIVE FINDINGS: 6CN75H Shiley placed in good position, secured with silk suture and trach tie. INDICATIONS AND CONSENT: Freddie Cole is a 63 y.o. who presented to the otolaryngology clinic with stridor and was found to have bilateral true vocal fold paralysis of unclear etiology. They were therefore offered the aforementioned procedures. The procedure, risks, benefits, alternatives and potential complications, possible outcomes as well as the option of no treatment were reviewed with the patient who indicated their understanding and wished to proceed forward with the procedure. Informed consent was obtained. DESCRIPTION OF PROCEDURE: On 09/02/2023, the patient was transferred to the operating room and placed supine on the operating room table. General endotracheal anesthesia was induced via an oral endotracheal tube without complication. A small transverse incision was designed approximately 2 fingerbreadths above the sternal notch andinfiltrated with lidocaine 1% with 1:100,000 epinephrine. Following a proper surgeon initiated timeout, the patient was prepped and draped in standard fashion. The midline neck incision was sharply incised and taken to the level of the trachea, taking care tostay midline and retracting the strap muscles as needed. There was scar tissue along the anterior tracheal wall from the prior thyroidectomy. The anterior tracheal wall was cleaned of excess tissue. A transverse incision was then created at the level of the second tracheal ring. An inferiorly-basedBjork flap was made and secured to the lower skin edge using 3-0 Vicryl suture. At this point, a previously-tested 6-0 cuffed Shiley tracheostomy tube was inserted into the tracheostomy without difficulty. The patient was connected to the mechanical ventilatory circuit. Proper tidal volumes and [id number] were confirmed. The tracheostomy was then secured to the anterior neck skin with silk sutures. A trach tie was also placed. This concluded our procedure. The patient tolerated the procedure well without any apparent immediate post operative complications. The patient was rotated back to their original position, gently awakened from general anesthesia and taken to PACU in stable condition. Abbie Galvan MD was present and participated through the entirety of the procedure. * Brief Op Note - Efe Mcnulty MD - 09/02/2023 3:52 PM EDT Freddie Cole ([id number]) PRE OPERATIVE DIAGNOSIS Bilateral vocal fold paralysis [J38.02] POST OPERATIVE DIAGNOSIS Bilateral vocal fold paralysis [J38.02] PROCEDURE PERFORMED Procedure(s) (LRB): TRACHEOSTOMY (Midline) PRIMARY CLOSURE N/A INTRAOPERATIVE FINDINGS Prior scar tissue, 6 cuffed Shiley placed SURGEON Surgeons and Role: * Abbie Galvan MD - Primary ANESTHESIOLOGIST Anesthesiologist: Ning Wing MD IRRIGATIONIST DESIGNER: Lev Chavez APRN-IRRIGATIONIST DESIGNER SURGICAL STAFF Sail Cutter: Ondina Garza RN; Biju Govea RN Resident Assisting: Efe Mcnulty MD Senior Ui Ux Developer: Elidia Phillips COMPLICATIONS None ESTIMATED BLOOD LOSS Minimal SPECIMENS No specimen sent * No specimens in log * Efe Mcnulty MD September 02, 2023 3:52 PM * Plan of Care - Efe Mcnulty MD - 09/02/2023 2:48 PM EDT ENT Plan of Care Diagnosis: Bilateral true vocal fold paralysis (idiopathic, 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 Rosa Elena flap. Trach change POD4 to 6UN75R Shiley. Diet/BOILER TESTER: ADAT, BOILER TESTER only if concerns Antibiotics: periop Activity: routine Consults: prn Labs/Replacement: routine, can discontinue if stable Anticoagulation: Restart home meds including Plavix POD1 PMHx:CAD, asthma, COPD, HTN, HLD, HF, hypothyroidism, MARYJO, Parkinson's disease Daily Plan: - Trach change to 6UN75R POD4 - Contact case management for trach supplies, suction, humidification AIRWAY PLAN Airway Status: Tracheostomy (Size: 6 cuffed) Difficult Airway: No Airway Alert In Chart: No Transoral Intubation Possible: Yes Difficult Intubation Expected: no If patient develops respiratory distress: Assess trach site Complexity. Hypothyroidism - Continue thyroid replacement Any conditions listed below are present on admission unless otherwise specified. . Discharge Planning Anticipate discharge on POD# 4 to home Discharge with Trach: Yes (Size: 6 cuffless) Appointments/Followup: Carole 10/01 scheduled Efe Mcnulty MD documented in this [facility]07-20-2024 History of Present illness Narrative* Abbie Galvan MD - 09/07/2023 8:00 AM EDT Patient doing well and breathing much better. Tolerating PMV and able to voice well. Tolerating diet No bleeding from trach. Vitals: 09/07/23 0744 BP: 117/71 Pulse: 72 Resp: 16 Temp: 98.1 F (36.7 C) SpO2: 92% Exam: AF, VSS, On trach mask Trach in place and patent. Stoma is clean and no bleeding. Neck is soft and without signs of infection PMV in place No crepitus. A/P: Bilateral vocal fold paralysis S/P Tracheostomy Doing well overall Will plan for discharge today and follow-up in 4 weeks. Abbie Galvan M.D. Residency Clinical Care Leader Department of Otolaryngology-Head and Neck Surgery * David Munoz MD - 09/07/2023 7:37 AM EDT OTOLARYNGOLOGY HEAD AND NECK SURGERY PROGRESS NOTE SUBJECTIVE NAEON AF VSS On 5L 21% O2 Voiding spontaneously, doing well overall Last Bowel Movement Last Bowel Movement: 09/02/23 (per pt) OBJECTIVE Blood pressure 129/79, pulse 71, temperature 97.9 F (36.6 C), temperature source Oral, resp. rate 16, height 1.753 m (5' 9), weight 89.4 kg (197 lb), SpO2 95%. Alert, oriented, NAD 6-0 Shiley cuffless trach in place and patent, [place] valve in place Non-labored breathing, in no respiratory distress or no stridor Neck flat, incisions C/D/I No evidence of fluid collection, dehiscence, or necrosis No significant trach secretions. Tongue midline, shoulder shrug intact SCDs in place LABORATORY AND IMAGING STUDIES Temp: [97.8 F (36.6 C)-98.5 F (36.9 C)] 97.9 F (36.6 C) Pulse (Heart Rate): [68-77] 71 Resp Rate: [16] 16 BP: (102-176)/(60-92) 129/79 O2 Sat (%): [90 %-95 %] 95 % Oxygen Therapy O2 Sat (%): 95 % O2 Device: tracheostomy collar Flow (L/min): 5 Oxygen Concentration (%): 21 Fluid Management (24hrs): Intake/Output last 3 shifts: I/O last 3 completed shifts: In: 420 [P.O.:420] Out: 100 [Urine:100] WBC/Hgb/Hct/Plts: 6.88/13.9/43.1/130 (09/06 002) Na/K+/Phos/Mg/Ca: 140/3.7/--/--/-- (09/06 22) Bun/Creat/Cl/CO2/Glucose: 16/1.07/101/29/110 (09/06 22) XR CHEST 1 VIEW PORTABLE Final Result IMPRESSION: New bibasilar atelectasis status post placement of properly positioned tracheostomy tube. 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 Diet/BOILER TESTER: ADAT, BOILER TESTER only if concerns Antibiotics: periop Activity: routine Consults: prn Labs/Replacement: routine, can discontinue if stable Anticoagulation: Restart home meds including Plavix POD1 PMHx:CAD, asthma, COPD, HTN, HLD, HF, hypothyroidism, MARYJO, Parkinson's disease Daily Plan: - Ciprodex drops down trach tube - Regular diet - Discharge to SNF, transport scheduled to pickup pt at 1030 AM. AIRWAY PLAN Airway Status: Tracheostomy (Size: 6 cuffless) Difficult Airway: No Airway Alert In Chart: No Transoral Intubation Possible: Yes Difficult Intubation Expected: no If patient develops respiratory distress: Assess trach site Complexity. Thrombocytopenia - Continue to monitor. Hypothyroidism - Continue thyroid replacement Any conditions listed below are present on admission unless otherwise specified. . Discharge Planning Anticipate discharge on POD# 4 to home Discharge with Trach: Yes (Size: 6 cuffless) Appointments/Followup: Carole 10/01 scheduled David Munoz MD * Belkys Buckley RN - 09/06/2023 11:10 AM EDT Final Discharge Planning and Transportation Anticipated Discharge Date : 09/07/2023 Final Discharge Planning Discharge Disposition: Long-Term Facility Services at Discharge: Occupational Therapy, Physical Therapy, Long-Term Selected Continued Care - Admitted Since 09/02/2023 Destination Coordination complete. Service Provider Selected Services Address Phone Fax Patient Preferred [facility] Long[facility]Term [address] [place], [place] [id number] [phone] -- Community Agency Name(s) For Handoff: [facility] Phone For Handoff: Fax For Handoff: Plan Plan: Patient will discahrge to [facility] at discharge Patient/Family In Agreement With Plan: yes Transportation Transport Request Mode of Transfer: S Name of Discharge Transport Company: [employer] Discharge Transport ETA: 09/07/23, 10:30a Belkys B.BSN,RN [facility] Weekend Clinical Lining Strap Closer Available on secure chat. * Paula Abraham - 09/06/2023 10:28 AM EDT 09/06/23 1028 Transport Request Mode of Transfer BLS Name of Discharge Transport Company [facility] [facility] ETA 09/07/23, 10:30a This pt will be picked up from [facility] [id number] going to: [facility] Script Editor [phone] * RETA Gasca - 09/06/2023 8:30 AM EDT Acute Care Speech-Language Pathology Voice Prosthesis Evaluation (Speaking Valve) Speaking Valve Recommendations: Speaking valve when awake/alert, as tolerated. Remove speaking valve when sleeping Discharge Recommendations: Based on the below outcome measures/assessment score(s) and BOILER TESTER clinicaljudgment, Discharge Destination Recommendation: Deferred to PT/OT recomendations related to mobility (Outpatient BOILER TESTER as needed for any questions re: speaking valve use or use of intelligibility strategies) Acute BOILER TESTER Outcomes Tracking Communicate basic wants and needs?: yes Demo insight/appreciation of deficits?: yes Complete basic problem solving?: yes Current therapy frequency recommendation in acute care: Speech/Lang/Cog Therapy Frequency: 2 times a week Patient History: Freddie Cole is a 63 yo male with known bilateral true vocal fold paralysis, s/ptracheostomy on 09/02/23. Procedure: Flexible fiberoptic laryngoscopy with stroboscopy (completed prior to admission.) MD Linda Sneed, BOILER TESTER Anesthesia: Topical lidocaine and Afrin Complications: None Condition is stable throughout exam Indications and consent: The patient presents to the clinic with dyspnea, dysphonia, and stridor. Indirect laryngoscopy view was incomplete. Thus it was recommended that they undergo a flexible fiberoptic laryngoscopy with stroboscopy. All of the risks, benefits, and potential complications were reviewed with the patient preoperatively and verbal informed consent was obtained. Procedure: The patient was seated upright in the clinic. Topical lidocaine and Afrin were applied to the nasal cavity. After adequate anesthesia had occurred, we then proceeded to pass the flexible telescope into the nasal cavity. The nasal cavity was patent without rhinorrhea or polyp. The nasopharynx was also patent without mass or lesion. The base of tongue was visualized and was normal. Therewere no signs of pooling of secretions in the piriform sinuses. The true vocal folds were fixed bilaterally in the medial position. There was a small glottic opening along the length of the vocal folds. There was incomplete glottic closure was voicing. The mucosal wave was present with increased amp litude. There were no signs of glottic or supraglottic mucosal lesion or mass. There was mild interarytenoid pachydermia and post cricoid edema. The telescope was then slowly withdrawn and the patient tolerated the procedure throughout. Past Medical History: Diagnosis Date Angioedema Asthma Bradycardia CAD (coronary artery disease) COPD (chronic obstructive pulmonary disease) Essential hypertension, benign Heart failure Hyperlipidemia Hypokalemia Hypothyroidism MARYJO (obstructive sleep apnea) Parkinson disease Past Surgical History: Procedure Laterality Date TRACHEOSTOMY Midline 09/02/2023 Laterality: Midline; Surgeon: Abbie Galvan MD; Location: [facility] MAIN OR KNEE ARTHROSCOPY Right OTHER SURGICAL cardiac stent THYROIDECTOMY Subjective information: Awake, alert, cooperative, pleasant. Sitting up in chair. and daughterarrived later in session. Noted patient with bilat vocal fold paralysis-discussed with ENT team (Zoe Munoz and Zaria) who confirmed patient with glottal patency and appropriate for speaking valve trials; specifically reported MD Galvan in agreement to trial speaking valve. Also discussed potential need for swallow evaluation; ENT team reported no concerns re: swallowing and denied need for furtherwork up at this time (patient also denies concerns swallowing.) Pain: Presence of Pain: denies pain/discomfort Pain Location: throat DVPRS: Rest: 0- no pain Precautions: Patient Safety Communication Prior to Visit: Nursing Lines/Tubes/Drains (Rehab Status): Telemetry BOILER TESTER Existing Precautions/Restrictions: supplemental oxygen Respiratory Status: Type: Shiley Size: 6 Cuff: cuffless Respiratory Support: trach mask Suction Frequency: prn Secretion amount: small Mucus Plug Prior to Eval: no Tolerance of Cuff Deflation: Cuffless Trach Tolerance of Digital Occlusion: Adequate airway patency with ability to move air through upper airway Speaking Valve Trial Sp02 Pre-assessment: 90 Sp02 During assessment: 90-95 RR Pre-assessment: 20 RR During assessment: 20 HR Pre-assessment: 62 HR During assessment: 62 Secretion management and clearance: WFL Duration of trial: ~25 minutes Overall Vocal Parameter Status: Impaired Breath support: Impaired Coordination of respiration and phonation: Impaired Pitch control: Impaired Loudness: Impaired Vocal Quality: mild, moderate Respiratory Effort: good Impressions: Patient seen for speaking valve trials. Patient tolerated digital occlusion with no evidence of air trapping; therefore, BOILER TESTER proceeded with placement of speaking valve. Patient toleratedspeaking valve for ~25 minutes with stable vitals, no s/sx of distress, and no s/sx of air trappingupon intermittent removal. Patient able to participate in conversation and education with speaking valve in place. Noted overall moderate dysphonia with hoarse, mild/occasionally strained vocal quality and reduced intensity. At times, patient with increasingly aesthenic vocal quality impacting intelligibility; resolved with cues to improve breath support. Speaking valve left in place to wear whenawake/alert as tolerated, remove when sleeping. Education provided regarding [place] Speaking Valve. The [place] Speaking Valve is a closed position one-way valve. It opens during inhalation and the valve closes during exhalation to redirectairflow out through the vocal folds, mouth, and nose. BOILER TESTER discussed airflow changes with speaking valve vs open trach. BOILER TESTER explained benefits of speaking valve use to include potential improvements in swallow function, expedited trach weaning, improved oxygenation, improved olfaction, improved airway clearance and secretion management, and reduced risk of infection vs digital occlusion. Educationproviding regarding safety precautions/contraindications, wearing schedule, and cleaning instruction s. Education provided regarding safety with donning and doffing of the speaking valve. BOILER TESTER emphasized importance of trach stabilization during placement and removal. Patient demonstrated initially with max cues, fading to min, x2. Will follow up x1-2 to assess for carryover of intelligibility strategies and answer any questions that may arise re: education. Patient Education/Instruction Learners: Patient, Spouse, Adult Child/Children Education provided: Speaking valve usage and contraindications Teaching method: Verbal Education/Instruction, Handout provided/reviewed, Teach back, Demonstration Learner response: Applies knowledge Learning preferences: Auditory Learning considerations: No barriers/ready to learn Plan for next session: Review intelligibility strategies if needed Acute BOILER TESTER Goals Plan of Care by RETA Gasca at 09/06/2023 8:30 AM Version 1 of 1 Problem: Speaking Valve Goal: Communication 1 - Patient will use respiration/phonation coordination strategies with no cuesto increase vocal intensity across 15 minutes while donning speaking valve and maintaining physiologic stability to improve functional communication Outcome: Ongoing Time In: 0830 Time Out: 0900 Total Visit Time: 30 minutes Total Treatment Time (skilled, billable minutes): 25 minutes BOILER TESTER Evaluation and Treatment Time Evaluation for Use/Fit of Voice Prosthetic Device 98783: 25 Speech Language Pathologist: RETA Gasca Time In: 0830 Time Out: 0900 Total Visit Time: 30 minutes Total Treatment Time (skilled, billable minutes): 25 minutes PPE used during patient interaction: facemask, gloves Patient location/status at end of session: chair Patient alarms at end of session: none altered Needs in reach. BOILER TESTER Evaluation and Treatment Time Evaluation for Use/Fit of Voice Prosthetic Device 56667: 25 Upon discontinuation of Acute Care Speech Therapy Services or patient discharge from the hospital this note represents the current Speech Therapy Discharge Summary * Abbie Galvan MD - 09/06/2023 7:06 AM EDT Patient did well overnight. Pain controlled. Family at beside today. Tolerating diet Trach changed this morning without issue. He feels his breathing is doing well. Tolerating TM. No bleeding from trach. Vitals: 09/06/23 0342 BP: 137/82 Pulse: 71 Resp: 14 Temp: 98.1 F (36.7 C) SpO2: 92% Exam: AF, VSS, On trach mask Trach in place and patent. Minimal crusting at trach site. Trach changed without difficulty No crepitus. A/P: Bilateral vocal fold paralysis S/P Tracheostomy Doing well overall Ambulate tid Trach care and teaching for family today Plan for discharge tomorrow. Abbie Galvan M.D. Residency Clinical Care Leader Department of Otolaryngology-Head and Neck Surgery * David Munoz MD - 09/06/2023 6:22 AM EDT OTOLARYNGOLOGY HEAD AND NECK SURGERY PROGRESS NOTE SUBJECTIVE NAEON AF VSS On 5L 21% O2 Voiding spontaneously, doing well overall Trach changed to 6 cuffless on rounds Walk of life yesterday without need for O2 Last Bowel Movement Last Bowel Movement: 09/02/23 (per pt) OBJECTIVE Blood pressure 137/82, pulse 71, temperature 98.1 F (36.7 C), temperature source Oral, resp. rate 14, height 1.753 m (5' 9), weight 89.4 kg (197 lb), SpO2 92%. Alert, oriented, NAD 6-0 Shiley cuffed trach in place and patent - changed to 6 cuffless Non-labored breathing, in no respiratory distress or no stridor Neck flat, incisions C/D/I No evidence of fluid collection, dehiscence, or necrosis Mild purulence in trach secretions. Tongue midline, shoulder shrug intact SCDs in place LABORATORY AND IMAGING STUDIES Temp: [97.7 F (36.5 C)-98.3 F (36.8 C)] 98.1 F (36.7 C) Pulse (Heart Rate): [68-83] 71 Resp Rate: [14-16] 14 BP: (100-147)/(60-82) 137/82 O2 Sat (%): [89 %-95 %] 92 % Oxygen Therapy O2 Sat (%): 92 % O2 Device: room air Flow (L/min): 5 Oxygen Concentration (%): 21 Fluid Management (24hrs): Intake/Output last 3 shifts: I/O last 3 completed shifts: In: 586 [P.O.:586] Out: 1125 [Urine:1125] WBC/Hgb/Hct/Plts: 7.62/14.1/43.0/137 (09/06 15) Na/K+/Phos/Mg/Ca: 140/4.0/--/--/-- (09/06 15) Bun/Creat/Cl/CO2/Glucose: 16/1.07/102/27/68 (09/06 15) XR CHEST 1 VIEW PORTABLE Final Result IMPRESSION: New bibasilar atelectasis status post placement of properly positioned tracheostomy tube. EDURE NOTE: Procedure: Tracheostomy tube change Preoperative diagnosis: tracheostomy dependence Postoperative diagnosis: same Surgeon: David Munoz MD Anesthesia: none Complications: None Indications and Consent: To evaluate the tracheostomy and exchange tracheostomy tubes. All of the risks, benefits, and potential complications were reviewed with the patient and verbal informed consent was obtained. Procedure: The patient was positioned in the supine position with the neck slightly extended. Suction, flexible fiberoptic tracheoscope and cricoid hook were readily available. The trach collar was removed and the old tracheostomy tube was atraumatically removed from the airway. The stoma was assessed using light and suction. The stoma was noted to be well formalized with no significant granulation tissue. A size 6 cuffless Shiley was then inserted into the stoma atraumatically without difficulty or resistance. No significant bleeding. The obturator was removed and the inner cannula was placed. A new tracheostomy collar was placed to secure the tube. This completed the procedure. The patient tolerated the procedure well and without complication. 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 Diet/BOILER TESTER: ADAT, BOILER TESTER only if concerns Antibiotics: periop Activity: routine Consults: prn Labs/Replacement: routine, can discontinue if stable Anticoagulation: Restart home meds including Plavix POD1 PMHx:CAD, asthma, COPD, HTN, HLD, HF, hypothyroidism, MARYJO, Parkinson's disease Daily Plan: - Ciprodex drops down trach tube - Regular diet - Case management for trach supplies, suction, humidification - BOILER TESTER for PMV - Reach out to sleep lab regarding overnight pulse ox results - Discharge home Saturday AIRWAY PLAN Airway Status: Tracheostomy (Size: 6 cuffed) Difficult Airway: No Airway Alert In Chart: No Transoral Intubation Possible: Yes Difficult Intubation Expected: no If patient develops respiratory distress: Assess trach site Complexity. Thrombocytopenia - Continue to monitor. Hypothyroidism - Continue thyroid replacement Any conditions listed below are present on admission unless otherwise specified. . Discharge Planning Anticipate discharge on POD# 4 to home Discharge with Trach: Yes (Size: 6 cuffless) Appointments/Followup: Carole 10/01 scheduled David Munoz MD * Briana Dawn RCP - 09/06/2023 4:07 AM EDT Patient had an overnight study on aerosol trach color at 21% per order. * Belkys Buckley RN - 09/05/2023 4:40 PM EDT Progression of Care Note Expected Discharge Date: 09/06/2023 Medical Milestones Remaining: Continued management/surveillance of symptoms while awaiting placement Assessment and Discharge Plan as of 09/05/2023 4:40 PM Spoke with daughter and notified that there were still no accepting [facility] agencies. Reviewed messagessent by covering CM to SNFs near pts home as alternative placement. A request for clinical documentation and notes was received from the facilities messaged. Clinical information,notes and vitals sent to SNF facilities. -Daughter's [facility] asked for time to review and they would notfiyus if they can accept 09/05 -[facility] is able to accept (see below) -[facility] is able to accept (see below) [facility] 6 Available [facility] 4 Available [facility] 5 Viewed [facility] 4 Viewed [facility] SN[facility]- Pending Approval [facility] 7 Under Review Send again [facility] 5 Under Review Send again [facility] 3 Under Review Send again Will reconvene with family Saturday morning for SNFchoice/dispo planning. Anticipated discharge disposition: Home with Home Health vs SNF Anticipated Services at Discharge: Outpatient follow up, Long-Term, Outpatient wound/drain/ostomy care, Wound/drain/line/ostomy-supplies Barriers to Discharge: Facility/Agency Issue, Home Care Explanation of Barriers: Patient medically ready for discharge placement Belkys GARCIA,RN CM Clinical Lining Strap Closer Available on secure chat. Please note that I am a float caser shoe parts and may not cover the same service every day. Please call the Main Lining Strap CloserSpecial Investigation Unit Investigator at [phone] for up to date coverage. * Abbie Galvan MD - 09/05/2023 8:37 AM EDT Patient did well overnight. Pain controlled. Family at beside today. Tolerating diet Ambulated yesterday He feels his breathing is doing well. Tolerating TM. No bleeding from trach. Cuff is deflated. Vitals: 09/05/23 0819 BP: 132/82 Pulse: 69 Resp: 16 Temp: 98 F (36.7 C) SpO2: 94% Exam: AF, VSS, On trach mask, 5 liters, 28% FiO2 Trach in place and patent. Minimal crusting at trach site No crepitus. A/P: Bilateral vocal fold paralysis S/P Tracheostomy Doing well overall Ambulate tid Trach care and teaching for family today Plan for trach change on POD 4 to 6 cuffless Shiley trach. Plan for discharge in two days. Abbie Galvan M.D. Residency Clinical Care Leader Department of Otolaryngology-Head and Neck Surgery * Ashish Brantley MD - 09/05/2023 5:58 AM EDT OTOLARYNGOLOGY HEAD AND NECK SURGERY PROGRESS NOTE SUBJECTIVE NAEON AF VSS On 5L 28% O2 Voiding spontaneously, doing well overall Last Bowel Movement Last Bowel Movement: 09/02/23 (per pt) OBJECTIVE Blood pressure 149/80, pulse 61, temperature 97.6 F (36.4 C), temperature source Oral, resp. rate 14, height 1.753 m (5' 9), weight 89.4 kg (197 lb), SpO2 95%. Alert, oriented, NAD 6-0 Shiley cuffed trach in place and patent Non-labored breathing, in no respiratory distress or no stridor Neck flat, incisions C/D/I No evidence of fluid collection, dehiscence, or necrosis Mild purulence in trach secretions. Tongue midline, shoulder shrug intact SCDs in place LABORATORY AND IMAGING STUDIES Temp: [97.3 F (36.3 C)-98 F (36.7 C)] 97.6 F (36.4 C) Pulse (Heart Rate): [61-73] 61 Resp Rate: [14-18] 14 BP: (87-149)/(55-80) 149/80 O2 Sat (%): [93 %-100 %] 95 % Oxygen Therapy O2 Sat (%): 95 % O2 Device: tracheostomy collar Flow (L/min): 5 Oxygen Concentration (%): 28 Fluid Management (24hrs): Intake/Output last 3 shifts: I/O last 3 completed shifts: In: 986 [P.O.:986] Out: 1350 [Urine:1350] WBC/Hgb/Hct/Plts: 8.06/13.5/40.7/130 (09/04 26) Na/K+/Phos/Mg/Ca: 139/3.6/--/--/-- (09/04 26) Bun/Creat/Cl/CO2/Glucose: 20/0.98/105/26/95 (09/04 26) XR CHEST 1 VIEW PORTABLE Final Result IMPRESSION: New bibasilar atelectasis status post placement of properly positioned tracheostomy tube. 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 Rosa Elena flap. Trach change POD4 to 6UN75R [place]. Diet/BOILER TESTER: ADAT, BOILER TESTER only if concerns Antibiotics: periop Activity: routine Consults: prn Labs/Replacement: routine, can discontinue if stable Anticoagulation: Restart home meds including Plavix POD1 PMHx:CAD, asthma, COPD, HTN, HLD, HF, hypothyroidism, MARYJO, Parkinson's disease Daily Plan: - Add Ciprodex drops down trach tube - Regular diet - Trach change to 6UN75R POD4 - Case management for trach supplies, suction, humidification - Trach teaching - Walk of life pending results - Reach out to sleep lab regarding overnight pulse ox results AIRWAY PLAN Airway Status: Tracheostomy (Size: 6 cuffed) Difficult Airway: No Airway Alert In Chart: No Transoral Intubation Possible: Yes Difficult Intubation Expected: no If patient develops respiratory distress: Assess trach site Complexity. Thrombocytopenia - Continue to monitor. Hypothyroidism - Continue thyroid replacement Any conditions listed below are present on admission unless otherwise specified. . Discharge Planning Anticipate discharge on POD# 4 to home Discharge with Trach: Yes (Size: 6 cuffless) Appointments/Followup: Carole 10/01 scheduled Ashish Brantley MD * Paula Alexandre RN - 09/04/2023 3:15 PM EDT Met with pt, and daughter Bessy Britt P [phone] @ bedside and reviewed dc plans. Informed no accepting [facility] agencies @ present. This CM extended deadline and added [facility] Home health services per family request. Timeline deadline tomorrow @ 10am. Family and pt state concerned about discharge to home on Saturday. State want pt to go to [facility] TCU / SNF. Agreeable to SNF referrals. Reason for Consult: SNF Consulted By: pt and family Level(s) of Care Discussed: SNF Patient and/or Ethics Instructor's Preferred Geographic Area for Discharge: 15 miles from home address Patient and/or Ethics Instructor's Preference for Providers to Include? 1.[facility] TCU/SNF Patient and/or Ethics Instructor's Preference for Providers to Exclude? 1.na Patient and/or Ethics Instructor's Discussion: Discussed referral process with the patient and/or promotional representative. Patient and/or promotional representative isagreeable to have placement referral initiated. Paula Alexandre RN, BSN Clinical Lining Strap Closer [phone] *Please note that I am a float caser shoe parts and that I may not cover the same service everyday. Please call the main case management office at for up to date coverage. * Abbie Galvan MD - 09/04/2023 7:38 AM EDT Patient did well overnight. Pain controlled. Tolerating diet Ambulated twice yesterday He feels his breathing is stable No bleeding from trach. Cuff is deflated. Vitals: 09/04/23 0343 BP: 116/75 Pulse: 72 Resp: 18 Temp: 97.7 F (36.5 C) SpO2: 94% Exam: AF, VSS, On trach mask, 6 liters of oxygen Trach in place and patent. Minimal crusting at trach site No crepitus. A/P: Bilateral vocal fold paralysis S/P Tracheostomy Doing well overall Ambulate tid Trach care and teaching for family Plan for trach change on POD 4 to 6 cuffless Shiley trach. Abbie Galvan M.D. Residency Clinical Care Leader Department of Otolaryngology-Head and Neck Surgery * David Munoz MD - 09/04/2023 5:47 AM EDT OTOLARYNGOLOGY HEAD AND NECK SURGERY PROGRESS NOTE SUBJECTIVE NAEON AF VSS On 5L 28% O2 Voiding spontaneously, doing well overall OBJECTIVE Blood pressure 116/75, pulse 72, temperature 97.7 F (36.5 C), temperature source Oral, resp. rate 18, height 1.753 m (5' 9), weight 89.4 kg (197 lb), SpO2 94%. Alert, oriented, NAD 6-0 Shiley cuffed trach in place and patent Non-labored breathing, in no respiratory distress or no stridor Neck flat, incisions C/D/I No evidence of fluid collection, dehiscence, or necrosis Tongue midline, shoulder shrug intact SCDs in place LABORATORY AND IMAGING STUDIES Temp: [97.4 F (36.3 C)-98.1 F (36.7 C)] 97.7 F (36.5 C) Pulse (Heart Rate): [61-81] 72 Resp Rate: [18-20] 18 BP: (116-174)/(63-96) 116/75 O2 Sat (%): [94 %-99 %] 94 % Oxygen Therapy O2 Sat (%): 94 % O2 Device: tracheostomy collar Flow (L/min): 5 Oxygen Concentration (%): 28 Fluid Management (24hrs): Intake/Output last 3 shifts: I/O last 3 completed shifts: In: 0 Out: 1400 [Urine:1400] WBC/Hgb/Hct/Plts: 9.79/15.9/49.3/148 (09/03 217) Na/K+/Phos/Mg/Ca: 141/3.7/--/--/-- (09/03 217) Bun/Creat/Cl/CO2/Glucose: 17/0.97/101/27/98 (09/03 217) XR CHEST 1 VIEW PORTABLE Final Result IMPRESSION: New bibasilar atelectasis status post placement of properly positioned tracheostomy tube. 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 Rosa Elena flap. Trach change POD4 to 6UN75R [place]. Diet/BOILER TESTER: ADAT, BOILER TESTER only if concerns Antibiotics: periop Activity: routine Consults: prn Labs/Replacement: routine, can discontinue if stable Anticoagulation: Restart home meds including Plavix POD1 PMHx:CAD, asthma, COPD, HTN, HLD, HF, hypothyroidism, MARYJO, Parkinson's disease Daily Plan: - Regular diet - Trach change to 6UN75R POD4 - Case management for trach supplies, suction, humidification - Trach teaching - Walk of life today - Overnight pulse ox test tonight AIRWAY PLAN Airway Status: Tracheostomy (Size: 6 cuffed) Difficult Airway: No Airway Alert In Chart: No Transoral Intubation Possible: Yes Difficult Intubation Expected: no If patient develops respiratory distress: Assess trach site Complexity. Thrombocytopenia - Continue to monitor. Hypothyroidism - Continue thyroid replacement Any conditions listed below are present on admission unless otherwise specified. . Discharge Planning Anticipate discharge on POD# 4 to home Discharge with Trach: Yes (Size: 6 cuffless) Appointments/Followup: Carole 10/01 scheduled David Munoz MD * EDGAR Dunlap-Edd - 09/03/2023 3:32 PM EDT Discharge Planning Patient Assessment Admission Assessment Patient Assessment Completed: Initial Anticipated discharge disposition: Home with Home Health Reason for Admission: vocal paralysis, stridor Is the patient able to participate in the assessment?: No Explanation of why patient is unable to participate: he is unable to speak Information source: Spouse, Child(tate) Information Source Name/Contact: Machelle Cole [phone] Demographics Verified and Updated: Yes Has the patient been admitted to any hospital in the last 30 days?: No Advanced Care Planning Has the patient completed Advance Directives?: Completed, Not Available in Medical Record Copy of Advance Directives was requested?: Yes Advance Directives Requested From: Legal Next of Kin Spouse: Yes Name and Contact information: Machelle Cole Reviewed and Updated in Demographics? : Yes Outpatient Providers Does patient have a primary care physician? : Yes When was the patient's last PCP visit?: > 30 days Does the patient follow any specialists?: Yes Reviewed and updated Care Team?: Yes Patient Care Team: Biju Lobo DO as PCP - General (Family Medicine) Gilbert Hoang MD as PCP - Referring 1 (Cardiovascular Disease) Jamie Grijalva MD as Referring Provider (Otolaryngology) Environment/Caregivers Patient lives with: Spouse or Partner Living Environment: House How many steps does the patient have to navigate to enter or inside the home? : 2-3. flight downstairs to his office Does the patient have a first floor set-up with bed and bathroom?: Yes Patient Caregiving Responsibilities: Self Patient-identified caregiver/support network: Family Who does the patient identify as a teachable caregiver(s)?: Spouse or Partner Services Does the patient use a home health or hospice agency?: No Does the patient use any community programs or services?: No Does the patient use oxygen?: Yes Oxygen Provider and Contact : [facility] [phone] Order for oxygen use?: prn Portable tank?: Yes Who will bring tank for discharge?: will need a tank compatible with trach Anticipated Changes Related to Illness/Injury? : Unknown at this time Initial ADLs Prior to Arrival What is the patient's baseline physical functioning prior to this acute illness?: independent What is the patient's baseline cognitive functioning prior to this acute illness?: independent Is the patient's baseline functioning changed by this acute illness? : Yes Changes observed : Physical Concerns with patient being able to care for themselves at home? : No CM to recommend therapy or other consults? : No Medication Management Does the patient have prescription insurance coverage? : Yes [facility] [address] [place] [id number] - [address] [facility] [phone] Certification And Selection Specialist Does the patient or promotional representative express financial concerns? : No Employed?: Yes Coping/Stress Concerns about patient s coping and stress?: No Concerns about patient s caregiver s coping and stress?: No Values and Beliefs Cultural or hinduism practices that may impact discharge planning and/or medical care?: No Initial Discharge Planning Anticipated discharge disposition: Home with Home Health Transportation Available for Discharge: Family or Friend, Private Vehicle Anticipated DME: oxygen (trach supplies) Anticipated Services at Discharge: Long-Term Patient Assessment Completed: Initial Expected Discharge Date: Saturday Discharge Planning Summary Patient will discharge home with new trach supplies, suctioning, humidifier. Additionally he will need a walk of life for O2. He gets his O2 through [facility] ([phone]) but family is adamant to [employer] for the trach supplies.Patient also wants a home heatlh nurse to reinforce trach teaching. Referrals sent and order pended. At familys request will inquire with [employer] if they can switch the O2 to them Care Management Plan Will continue to follow and assist with planning and coordination. * Nga Quintero - 09/03/2023 7:40 AM EDT Acute Occupational Therapy Evaluation Prior Gross Functional Mobility: independent Current AM-PAC score(s): CURRENT AM-PAC Activity Raw Score: 23 Based on the above AM-PAC score(s) and OT clinical judgment, discharge destination recommendation is: Home Barriers to discharge home: Patient needs assistance with IADLs (see note below) Mobility equipment available at home: none used ADL equipment available at home: Equipment recommendations for discharge: to be determined Current therapy frequency recommendation(s) in acute: 1 time a week Activity Recommendations for outside of rehab session: ad nimisha Precautions and Weightbearing Status: Patient Safety Communication Prior to Visit: Nursing Subjective: Pt asked if he would be able to walk around today. Respiratory therapy contacted for trach adapter. Pain: General Pain Documentation (Adult, OB, Peds) Presence of Pain: denies pain/discomfort Presence of Pain Score (Auto-calculated): 0 DVPRS (Defense and Veterans Pain Rating Scale) DVPRS: Rest: 0- no pain DVPRS: Activity: 0- no pain Home Setting Residence: House Lives With: alone Patient receives help from : none Patient reported support for discharge plannin hour supervision, 24 hour physical assistance First floor setup: bedroom, tub shower Second floor setup: (does not use) Number of stairs to enter home: 2 Number of stairs in home: does not use Stair Railings at Home: entry - with rail Mobility Equipment Available: none used Previous Level of Function Gross Functional Mobility: independent Assistive Device: none used Prior level ADL Overview: Independent with all ADLs Bed Mobility: independent Transfers: independent Stairs: independent Ambulation: independent with all needs IADL History IADLs: independent Primary Language: Telugu Objective/Observation: Vitals/Vitals Responses to Treatment: VSS O2 Device: tracheostomy collar Vision Screen Currently wearing corrective lenses: Yes Visual Impairments Observed?: No Speech Speech: trach Successful Methods (Communication Strategies): gestures (written communication and mouthing words; uses symbols and gestures when able) Hearing Hearing: no gross deficits noted Cognition Overall Cognitive Status: Within Functional Limits Arousal/Alertness: Appropriate responses to stimuli Orientation Level: Oriented X4 Following Commands: Follows all commands and directions without difficulty Safety Judgment: Good awareness of safety precautions Awareness of Errors: Good awareness of errors made Deficits: Fully aware of deficits ADLs: ADL Anticipated Performance (ADLs not directly observed this session): Eating, Grooming, Bathing, UE Dressing, LE Dressing Eating Assistance: Independent Grooming Assistance: Modified independent Bathing Assistance: Supervision UE Dressing Assistance: Modified independent LE Dressing Assistance: Supervision Toilet Assistance: Modified independent Toileting Location: urinal Toileting Intervention/Details: Pt unable to ambulate to restroom this date; limited by equipment needs for trach extension. Extremity Assessments: RUE Assessment RUE Assessment: Within Functional Limits LUE Assessment LUE Assessment: Within Functional Limits Balance: Sitting Balance Static Sitting-Level of Assistance: Independent Dynamic Sitting-Level of Assistance: Independent Standing Balance Static Standing-Level of Assistance: Independent Dynamic Standing-Level of Assistance: Independent Neuro: Sensation Overall Sensation: Intact Proprioception Proprioception: intact Gross Coordination Gross Coordination: bilat UE intact Fine Motor Coordination Additional Documentation: No Skin and Edema: Edema Edema: none noted Mobility Assessment: Supine to Sit Mobility Licking Level: Supine->Sit: independent Transfer Assessment: Sit to Stand Transfer Licking Level: Sit->Stand: independent Stand to Sit Transfer Licking Level: Stand->Sit: independent Bed-Chair Transfer Licking Level: Bed<->Chair: independent Outcome Score(s): CURRENT [facility] Daily Activity Inpatient Short Form Putting on/Taking Off Lower Body Clothin - No Assistance Bathin - A Little Assistance Toiletin - No Assistance Putting on/Taking Off Upper Body Clothin - No Assistance Groomin - No Assistance Eatin - No Assistance CURRENT AM-[facility] Activity Raw Score: 23 CURRENT AM-[facility] Activity Functional Limitation/Modifier: 15.86% Currently Impaired in Daily Activity- CI Interventions: Education on hospital mobility plan to prevent deconditioning. Assessment & Plan: Patient was admitted for bilateral vocal fold paralysis and seen for therapy evaluation related to ADL/IADL deficits related to functional mobility. Exam findings include impairments in: endurance, ventilation and respiration. These impairments contribute to occupational performance limitations including functional mobility, bathing, dressing. Pt evaluated for therapy this date. Pt independent in functional transfers this date. Pt completed self care using mod I. Pt currently limited due to ventilation and endurance. Will monitor progression towards therapy goals to improve functional independence in standing ADL tasks and IADL routines. Patient will benefit from skilled occupational therapy to address these impairments, occupational performance limitations, and participation restrictions. Patient's rehab potential is: good. Planned Therapy Interventions (OT Eval): IADL retraining, functional activity tolerance Patient Instruction/Education this session: Learners: Patient Education provided: Role of this discipline, Plan of care, Activity outside of therapy Teaching method: Audiovisual, Demonstration, Verbal Education/Instruction Learner response: Applies knowledge Learning preferences: Auditory, Kinesthetic Learning considerations: Speech expression Plan for next session: IADL retraining, functional standing tolerance to complete ADLs/basic self care Acute OT Goals Plan of Care by Cyndy Bello OT at 09/03/2023 7:54 AM Version 1 of 1 Problem: OT - ADLs Goal: Bathing - Patient will perform full body bathing routine with independence while seated and standing for improved ability to complete self-care activities Outcome: Ongoing Problem: OT - Endurance Goal: Endurance Functional Task Standing - Patient will engage in standing functional task for 10 minutes with independence to improve activity tolerance necessary for safe ADL completion at recommended discharge destination. Outcome: Ongoing OT treatment consisted of the following to work and progress towards the above goal(s): OT Evaluation and Treatment Time OT Evaluation (Low) Time Entry: 11 Evaluating Therapist: Nga Quintero Additional Details: OT Co-Eval/Treatment Information Co-evaluation/co-treatment performed?: Yes, combination of simultaneous billable and individual billable skilled care was necessary due to medical complexity and functional deficits Other discipline: PT Rationale for need to co-eval/treat: postural control Co-treatment goal focus: balance, mobility OT Evaluation Complexity Occupational Profile and Client History: Low - brief history Assessment of Occupational Performance: Low (1-3 performance deficits) Clinical Decision/Performance Deficits: Low (problem-focused assessments w/limited treatment options) Time In: 728 Time Out: 739 Total Visit Time: 11 minutes Total Treatment Time (skilled, billable minutes): 11 minutes PPE used during patient interaction: gloves Patient location at end of session: chair Alarms on at end of session: RN aware Needs in reach. Upon discontinuation of Acute Care Occupational Therapy Services or patient discharge from the hospital this note represents the current Occupational Therapy Discharge Summary. Associated attestation - Cyndy Bello OT - 09/03/2023 2:52 PM EDT I, Cyndy Bello OT, provided line of sight supervision during this patient care session. I attest that all documentation reflects accurate skilled clinical decisions and judgements. * Gerard Laboy, PT - 09/03/2023 7:30 AM EDT Acute Physical Therapy Evaluation Prior Gross Functional Mobility: independent Current AM-PAC score(s): CURRENT AM-PAC Mobility Raw Score: 24 Based on the above AM-PAC score(s) and PT clinical judgment, patient is a good candidate for discharge to Home Barriers to discharge home: None Mobility equipment available at home: none used ADL equipment available at home: Equipment needed for discharge: none Current therapy frequency recommendation in acute: Therapy Frequency: no therapy warranted Activity Recommendations for outside of rehab session: ad nimisha Precautions and Weightbearing Status: Existing Precautions/Restrictions: no known precautions/restrictions Patient Safety Communication Prior to Visit: Nursing Subjective: Patient was wondering if he would be able to walk Pain: General Pain Documentation (Adult, OB, Peds) Presence of Pain: denies pain/discomfort Presence of Pain Score (Auto-calculated): 0 DVPRS (Defense and Veterans Pain Rating Scale) DVPRS: Rest: 0- no pain DVPRS: Activity: 0- no pain Home Setting Residence: House Lives With: alone Patient receives help from : none Patient reported support for discharge plannin hour supervision, 24 hour physical assistance First floor setup: bedroom, tub shower Second floor setup: (does not use) Number of stairs to enter home: 2 Number of stairs in home: does not use Stair Railings at Home: entry - with rail Mobility Equipment Available: none used Previous Level of Function Gross Functional Mobility: independent Assistive Device: none used Prior level ADL Overview: Independent with all ADLs Bed Mobility: independent Transfers: independent Stairs: independent Ambulation: independent with all needs Objective/Observation: Vitals/Vitals Responses to Treatment: Tolerates session well Cognition Overall Cognitive Status: Within Functional Limits Arousal/Alertness: Appropriate responses to stimuli Orientation Level: Oriented X4 Following Commands: Follows all commands and directions without difficulty Safety Judgment: Good awareness of safety precautions Speech Successful Methods (Communication Strategies): (written, mouthing) Extremity Assessments: RUE Assessment RUE Assessment: Within Functional Limits LUE Assessment LUE Assessment: Within Functional Limits RLE Assessment RLE Assessment: Within Functional Limits LLE Assessment LLE Assessment: Within Functional Limits Mobility Assessment: Supine to Sit Mobility L[place] Level: Supine->Sit: independent Balance: Sitting Balance Static Sitting-Level of Assistance: Independent Dynamic Sitting-Level of Assistance: Independent Standing Balance Static Standing-Level of Assistance: Independent Dynamic Standing-Level of Assistance: Independent Transfer Assessment: Sit to Stand Transfer Licking Level: Sit->Stand: independent Gait/Functional Mobility: Gait Assessment Licking Level: Gait: independent Ambulation Distance (Feet): 5 Stairs: Outcome Score(s): CURRENT [facility] Basic Mobility Inpatient Short Form Turning over in bed: 4 - No Assistance Moving from lying on back to sittin - No Assistance Moving to and from bed to chair: 4 - No Assistance Sitting/standing from chair: 4 - No Assistance Walk in hospital room: 4 - No Assistance Climbing 3-5 steps with a railin - No Assistance CURRENT [facility] Mobility Raw Score: 24 CURRENT [facility] Mobility Functional Limitation: 0.00% Impaired in Basic Mobility Assessment & Plan: Patient was admitted for tracheostomy and seen for therapy evaluation related to endurance assessment. Exam findings include impairments in: Gait/Locomotion. These impairments contribute to functional limitations including Decreased ambulation distance/endurance. Current clinical presentation is Stable - unchanging or predictable (Low). Patient history factors impacting Plan Of Care include Past Medical History: Diagnosis Date Angioedema Asthma Bradycardia CAD (coronary artery disease) COPD (chronic obstructive pulmonary disease) Essential hypertension, benign Heart failure Hyperlipidemia Hypokalemia Hypothyroidism MARYJO (obstructive sleep apnea) Parkinson disease . Patient will benefit from skilled physical therapy to address these impairments, functional limitations, and participation restrictions and has rehab potential to achieve therapy goals. Patient Instruction/Education this session: Learners: Patient Education provided: Functional transfers, Discharge recommendations Teaching method: Verbal Education/Instruction Learner response: Applies knowledge Learning considerations: No barriers/ready to learn Plan for next session: none Acute PT Goals Notes from 09/02/2023 8:57 PM through 09/03/2023 8:57 AM Patient will show independence with all functional mobility PT treatment consisted of the following to progress towards the above goal(s): PT Evaluation and Treatment Time PT Evaluation (Low) Time Entry: 17 Evaluating Therapist: Gerard Lbaoy PT Additional Details: PT Co-Eval/Treatment Information Co-evaluation/co-treatment performed?: Yes, simultaneous billable skilled care was necessary due tomedical complexity and functional deficits Other discipline: OT Rationale for need to co-eval/treat: postural control Evaluation Complexity Components History: Moderate (1-2 personal factors and/or comorbidities) Body Systems Review: Low (Addressing 1-2 elements) Clinical Presentation: Stable - unchanging or predictable (Low) Clinical Decision Making: Low Time In: 728 Time Out: 0746 Total Visit Time: 17 minutes Total Treatment Time (skilled, billable minutes): 17 minutes PPE used during patient interaction: gloves Patient location at end of session: chair Alarms on at end of session: none Needs in reach. Upon discontinuation of Acute Care Physical Therapy Services or patient discharge from the hospitalthis note represents the current Physical Therapy Discharge Summary. * David Munoz MD - 09/03/2023 6:55 AM EDT OTOLARYNGOLOGY HEAD AND NECK SURGERY PROGRESS NOTE SUBJECTIVE NAEON AF VSS On 7L 35% O2 Voiding spontaneously, doing well overall OBJECTIVE Blood pressure (!) 161/94, pulse 64, temperature 97.3 F (36.3 C), temperature source Oral, resp. rate 20, height 1.753 m (5' 9), weight 89.4 kg (197 lb), SpO2 97%. Alert, oriented, NAD 6-0 Shiley [address] trach in place and patent Non-labored breathing, in no respiratory distress or no stridor Neck flat, incisions C/D/I No evidence of fluid collection, dehiscence, or necrosis Tongue midline, shoulder shrug intact SCDs in place LABORATORY AND IMAGING STUDIES Temp: [97.3 F (36.3 C)-98.7 F (37.1 C)] 97.3 F (36.3 C) Pulse (Heart Rate): [64-80] 64 Resp Rate: [15-20] 20 BP: (94-161)/(61-94) 161/94 O2 Sat (%): [89 %-97 %] 97 % Weight: [89.4 kg (197 lb)] 89.4 kg (197 lb) Oxygen Therapy O2 Sat (%): 97 % O2 Device: tracheostomy collar Flow (L/min): 6 Fluid Management (24hrs): Intake/Output last 3 shifts: I/O last 3 completed shifts: In: 1400 [I.V.:1400] Out: 100 [Urine:100] WBC/Hgb/Hct/Plts: 10.04/14.9/46.8/137 (09/02 0427) Na/K+/Phos/Mg/Ca: 140/4.7/--/--/-- (09/02 426) Bun/Creat/Cl/CO2/Glucose: 18/0.89/104/28/134 (09/02 426) XR CHEST 1 VIEW PORTABLE Final Result IMPRESSION: New bibasilar atelectasis status post placement of properly positioned tracheostomy tube. 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 Rosa Elena flap. Trach change POD4 to [id number] [place]. Diet/BOILER TESTER: ADAT, BOILER TESTER only if concerns Antibiotics: periop Activity: routine Consults: prn Labs/Replacement: routine, can discontinue if stable Anticoagulation: Restart home meds including Plavix POD1 PMHx:CAD, asthma, COPD, HTN, HLD, HF, hypothyroidism, MARYJO, Parkinson's disease Daily Plan: - Advance diet to regular - Trach change to [id number] POD4 - Contact case management for trach supplies, suction, humidification AIRWAY PLAN Airway Status: Tracheostomy (Size: 6 cuffed) Difficult Airway: No Airway Alert In Chart: No Transoral Intubation Possible: Yes Difficult Intubation Expected: no If patient develops respiratory distress: Assess trach site Complexity. Thrombocytopenia - Continue to monitor. Hypothyroidism - Continue thyroid replacement Any conditions listed below are present on admission unless otherwise specified. . Discharge Planning Anticipate discharge on POD# 4 to home Discharge with Trach: Yes (Size: 6 cuffless) Appointments/Followup: Carole 10/01 scheduled David Munoz MD * Abbie Galvan MD - 09/03/2023 6:37 AM EDT Patient did well overnight. Pain controlled. He tolerated liquid well. He feels his breathing is stable No bleeding from trach. He is able to vocalize around the trach this morning. Cuff is deflated. Vitals: 09/03/23 0446 BP: (!) 161/94 Pulse: 64 Resp: 20 Temp: 97.3 F (36.3 C) SpO2: 97% Exam: AF, VSS, On trach mask, 6 liters of oxygen Trach in place and patent. Minimal crusting removed from trach site No crepitus. A/P: Bilateral vocal fold paralysis S/P Tracheostomy Doing well overall Will advance diet to regular PT/OT for ambulation Trach care and teaching for family I contacted our outpatient nursing to order trach supplies. Will restart Plavix and home meds Plan for trach change on POD 4 to 6 cuffless Shiley trach. Abbie Galvan M.D. Residency Clinical Care Leader Department of Otolaryngology-Head and Neck Surgery [facility] of care note* Plan of Care - RETA Gasca - 09/06/2023 8:30 AM EDT Problem: Speaking Valve Goal: Communication 1 - Patient will use respiration/phonation coordination strategies with no cuesto increase vocal intensity across 15 minutes while donning speaking valve and maintaining physiologic stability to improve functional communication Outcome: Ongoing [facility] Plan of care note* Plan of Care - Rudy Medley RN - 09/06/2023 5:22 AM EDT Problem: Adult Inpatient Plan of Care Goal: Plan of Care Review Outcome: Progressing Goal: Patient-Specific Goal (Individualized) Outcome: Progressing Goal: Absence of Hospital-Acquired Illness or Injury Outcome: Progressing Goal: Optimal Comfort and Wellbeing Outcome: Progressing Goal: Readiness for Transition of Care Outcome: Progressing Problem: OT - ADLs Goal: Bathing - Patient will perform full body bathing routine with independence while seated and standing for improved ability to complete self-care activities Outcome: Progressing Problem: OT - Endurance Goal: Endurance Functional Task Standing - Patient will engage in standing functional task for 10 minutes with independence to improve activity tolerance necessary for safe ADL completion at recommended discharge destination. Outcome: Progressing [facility]07-18-2024 Nurse Note* Nursing Notes - EMILY Lorenzana - 09/05/2023 10:13 AM EDTSummary: Tracheostomy tube teaching Reason for consultation: Patient Education LOS: 3 Assessment- Freddie Cole seen by Clinical Nurse Specialist for tracheostomy tube discharge teaching needs. Daughter states her mom has done care twice and she has done once. Not comfortable with doing yet-need to continue to do. Offered to observe her do, but states she just completed the care. Discussed steps to safe showering. Plan of care- Clinical Nurse Specialist recommends reading patient education materials that were left yesterday. Left my phone number to call if they have questions. A total of 30 minutes were spent with patient and/or nurse. [facility] Work Phone: [phone] 569-424807-18-2024 Plan of care note* Plan of Care - Gabrielle Conte RN - 09/05/2023 3:30 AM EDT Problem: Adult Inpatient Plan of Care Goal: Plan of Care Review Outcome: Progressing Goal: Patient-Specific Goal (Individualized) Outcome: Progressing Goal: Absence of Hospital-Acquired Illness or Injury Outcome: Progressing Goal: Optimal Comfort and Wellbeing Outcome: Progressing Goal: Readiness for Transition of Care Outcome: Progressing [facility]07-17-2024 Nurse Note* Nursing Notes - Aislinn Gaitan RN - 09/04/2023 4:47 PM EDT Home Oxygen Qualification Patient: Freddie Cole Patient oxygen saturation at rest on room air is: 96% (2 minutes at rest, add oxygen if saturationsgo below 89% at rest) Placed on no oxygen via nasal cannula on patient at rest, oxygen saturation improved to: N/A Patient Oxygen saturation with exertion on room air is: 93% Placed on N/A L oxygen via nasal cannula on patient during exertion. Oxygen saturation improved to: N/A % (add oxygen if saturations go below 89%) N/A It is recommended that patient requires 0L of oxygen to maintain oxygen saturations at and above 88% with exertion. (if the patient requires 6L of oxygen or above to maintain oxygen saturations at or above 88%, documentation of the SPO2 when tested at 4L of oxygen is also required.) Patient is mobile at home and requires portability. [facility]07-17-2024 Nurse Note* Nursing Notes - David Caruso RN - 09/04/2023 11:59 AM EDT Family teaching at bedside. completed trach inner cannula exchange, suction, and trach tie exchange. [facility]07-16-2024 Plan of care note* Plan of Care - Cyndy Bello OT - 09/03/2023 7:54 AM EDT Problem: OT - ADLs Goal: Bathing - Patient will perform full body bathing routine with independence while seated and standing for improved ability to complete self-care activities Outcome: Ongoing Problem: OT - Endurance Goal: Endurance Functional Task Standing - Patient will engage in standing functional task for 10 minutes with independence to improve activity tolerance necessary for safe ADL completion at recommended discharge destination. Outcome: Ongoing [facility]07-15-2024 Nurse Note* Nursing Notes - Reyna Ta RN - 09/02/2023 6:47 PM EDT On admission to [facility], from PACU a dual RN initial assessment of skin condition was performed by Reyna Ta RN and Nereyda Alvarez. Skin Assessment: Skin within defined limits:Yes Mg Score: 16 LDA Added:No Reyna Ta RN [facility]07-15-2024 Surgery Postoperative evaluation and management note* Op Note - Efe Mcnulty MD - 09/02/2023 3:52 PM EDT Operative Report DATE OF SERVICE: 09/02/2023 PATIENT: Freddie Cole PREOPERATIVE DIAGNOSIS: 1. Bilateral true vocal fold paralysis POSTOPERATIVE DIAGNOSIS: 1. Bilateral true vocal fold paralysis PROCEDURE: 1. Tracheostomy SURGEON: Abbie Galvan MD BLEMISH REMOVER: Efe Mcnulty MD ANESTHESIA: General ESTIMATED BLOOD LOSS: 5 mL COMPLICATIONS: None CONDITION: To PACU in stable condition. INTRAOPERATIVE FINDINGS: 6CN75H Shiley placed in good position, secured with silk suture and trach tie. INDICATIONS AND CONSENT: Freddie Cole is a 63 y.o. who presented to the otolaryngology clinic with stridor and was found to have bilateral true vocal fold paralysis of unclear etiology. They were therefore offered the aforementioned procedures. The procedure, risks, benefits, alternatives and potential complications, possible outcomes as well as the option of no treatment were reviewed with the patient who indicated their understanding and wished to proceed forward with the procedure. Informed consent was obtained. DESCRIPTION OF PROCEDURE: On 09/02/2023, the patient was transferred to the operating room and placed supine on the operating room table. General endotracheal anesthesia was induced via an oral endotracheal tube without complication. A small transverse incision was designed approximately 2 fingerbreadths above the sternal notch andinfiltrated with lidocaine 1% with 1:100,000 epinephrine. Following a proper surgeon initiated timeout, the patient was prepped and draped in standard fashion. The midline neck incision was sharply incised and taken to the level of the trachea, taking care tostay midline and retracting the strap muscles as needed. There was scar tissue along the anterior tracheal wall from the prior thyroidectomy. The anterior tracheal wall was cleaned of excess tissue. A transverse incision was then created at the level of the second tracheal ring. An inferiorly-basedBjork flap was made and secured to the lower skin edge using 3-0 Vicryl suture. At this point, a previously-tested 6-0 cuffed Shiley tracheostomy tube was inserted into the tracheostomy without difficulty. The patient was connected to the mechanical ventilatory circuit. Proper tidal volumes and [id number] were confirmed. The tracheostomy was then secured to the anterior neck skin with silk sutures. A trach tie was also placed. This concluded our procedure. The patient tolerated the procedure well without any apparent immediate post operative complications. The patient was rotated back to their original position, gently awakened from general anesthesia and taken to PACU in stable condition. Abbie Galvan MD was present and participated through the entirety of the procedure. [facility] Work Phone: [phone] Surgery Postoperative evaluation and management note* Brief Op Note - Efe Mcnulty MD - 09/02/2023 3:52 PM EDT Freddie Cole ([id number]) PRE OPERATIVE DIAGNOSIS Bilateral vocal fold paralysis [J38.02] POST OPERATIVE DIAGNOSIS Bilateral vocal fold paralysis [J38.02] PROCEDURE PERFORMED Procedure(s) (LRB): TRACHEOSTOMY (Midline) PRIMARY CLOSURE N/A INTRAOPERATIVE FINDINGS Prior scar tissue, 6 cuffed Shiley placed SURGEON Surgeons and Role: * Abbie Galvan MD - Primary ANESTHESIOLOGIST Anesthesiologist: Ning Wing MD IRRIGATIONIST DESIGNER: Lev Chavez APRN-IRRIGATIONIST DESIGNER SURGICAL STAFF Sail Cutter: Ondina Garza RN; Biju Govea RN Resident Assisting: Efe Mcnulty MD Senior Ui Ux Developer: Elidia Phillips COMPLICATIONS None ESTIMATED BLOOD LOSS Minimal SPECIMENS No specimen sent * No specimens in log * Efe Mcnulty MD September 02, 2023 3:52 PM [facility]07-15-2024 Plan of care note* Plan of Care - Efe Mcnulty MD - 09/02/2023 2:48 PM EDT ENT Plan of Care Diagnosis: Bilateral true vocal fold paralysis (idiopathic, 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 Rosa Elena flap. Trach change POD4 to 6UN75R [place]. Diet/BOILER TESTER: ADAT, BOILER TESTER only if concerns Antibiotics: periop Activity: routine Consults: prn Labs/Replacement: routine, can discontinue if stable Anticoagulation: Restart home meds including Plavix POD1 PMHx:CAD, asthma, COPD, HTN, HLD, HF, hypothyroidism, MARYJO, Parkinson's disease Daily Plan: - Trach change to 6UN75R POD4 - Contact case management for trach supplies, suction, humidification AIRWAY PLAN Airway Status: Tracheostomy (Size: 6 cuffed) Difficult Airway: No Airway Alert In Chart: No Transoral Intubation Possible: Yes Difficult Intubation Expected: no If patient develops respiratory distress: Assess trach site Complexity. Hypothyroidism - Continue thyroid replacement Any conditions listed below are present on admission unless otherwise specified. . Discharge Planning Anticipate discharge on POD# 4 to home Discharge with Trach: Yes (Size: 6 cuffless) Appointments/Followup: Carole 10/01 scheduled Efe Mcnulty MD [facility]07-15-2024 Attending History and physical note* Abbie Galvan MD - 09/02/2023 1:20 PM EDT PERIOPERATIVE SURGICAL HISTORY AND PHYSICAL UPDATE Pre-op Diagnoses: Bilateral vocal fold paralysis [J38.02] Procedure(s): TRACHEOSTOMY Surgeon(s): Surgeons and Role: * Abbie Galvan MD - Primary History and Physical Update: There were no vitals taken for this visit. I have reviewed Freddie Cole's medical, surgical and other pertinent history, and I have updated the medication and allergy information in the computerized patient record. I have examined the patient, reviewed the previous H&P completed on date (08/28/23) and there are no changes. Today's surgical history and physical update was completed by Abbie Galvan MD, 09/02/2023, 1:20 PM. I have examined the patient and reviewed the previous H&P completed on date 08/28/23 and there are no changes. Abbie Galvan MD, 09/02/2023, 1:20 PM. Source Note - Abbie Galvan MD - 08/28/2023 12:38 PM EDT 63 year old male presents for evaluation of bilateral vocal fold immobility and dyspnea. He has had dyspnea the past 3 years with more symptoms recently. He was diagnosed with laryngospasms in 2020. He has had episodes where he has trouble catching his breath and has had to go to the ER. He was having these monthly previously. His last laryngospasm event was one month ago and he is able to control them better. He was diagnosed with Parkinson's Disease in 2022 last year. He had a prior MRI brain. He has dyspnea at rest and with exertion. He has stridor at times. He has occasional dysphagia and choking episodes. He has some raspiness with lower volume to his voice. He had a thyroidectomy in 1998. He had Grave's disease and hyperthyroidism. He has a history of MARYJO and uses CPAP nightly. He is using oxygen during the daytime as needed. He has a history of CAD and coronary stent. He takes Plavix daily. He has a history of tobacco use. He quit tobacco in 2021. He used to smoke about 1 ppd. ROS: Constitutional: Negative for fever, weight loss and weight gain. Cardiovascular: Negative for chest pain and positive dyspnea on exertion. Respiratory: Is experiencing shortness of breath at rest. Gastrointestinal: Negative for nausea and vomiting. Neurological: Negative for headaches. Psychiatric: The patient is not nervous/anxious. The PMH, PSH, Medications, Allergies, and SH were reviewed and updated. Exam: General: Well-developed, well-nourished Communication and Voice: Mild raspiness Respiratory Respiratory effort: Equal inspiration and expiration without stridor Cardiovascular Peripheral Vascular: Warm extremities with equal color/perfusion Eyes: No nystagmus with equal extraocular motion bilaterally Neuro/Psych/Balance: Patient oriented to person, place, and time; Appropriate mood and affect; Gaitis intact with moderate imbalance; Cranial nerves I-XII are intact Head and Face Inspection: Normocephalic and atraumatic without mass or lesion Palpation: Facial skeleton intact without bony stepoffs Salivary Glands: No mass or tenderness Facial Strength: Facial motility symmetric and full bilaterally ENT Pinna: External ear intact and fully developed External canal: Canal is patent with intact skin Tympanic Membrane: Clear and mobile External Nose: No scar or anatomic deformity Internal Nose: Septum intact and midline. No edema, polyp, or rhinorrhea Lips, Teeth, and gums: Mucosa and teeth intact and viable TMJ: No pain to palpation with full mobility Oral cavity/oropharynx: No erythema or exudate, no lesions present Nasopharynx: No mass or lesion with intact mucosa Hypopharynx: Intact mucosa without pooling of secretions Larynx Unable to fully visualize Neck Neck and Trachea: Midline trachea without mass or lesion Thyroid: No mass or nodularity, thyroidectomy scar Lymphatics: No lymphadenopathy Procedure: Preoperative diagnosis: Bilateral vocal fold paralysis, stridor, dyspnea on exertion Postoperative diagnosis: Same Procedure: Flexible fiberoptic laryngoscopy with stroboscopy MD Linda Sneed, BOILER TESTER Anesthesia: Topical lidocaine and Afrin Complications: None Condition is stable throughout exam Indications and consent: The patient presents to the clinic with dyspnea, dysphonia, and stridor. Indirect laryngoscopy view was incomplete. Thus it was recommended that they undergo a flexible fiberoptic laryngoscopy with stroboscopy. All of the risks, benefits, and potential complications were reviewed with the patient preoperatively and verbal informed consent was obtained. Procedure: The patient was seated upright in the clinic. Topical lidocaine and Afrin were applied to the nasal cavity. After adequate anesthesia had occurred, we then proceeded to pass the flexible telescope into the nasal cavity. The nasal cavity was patent without rhinorrhea or polyp. The nasopharynx was also patent without mass or lesion. The base of tongue was visualized and was normal. Therewere no signs of pooling of secretions in the piriform sinuses. The true vocal folds were fixed bilaterally in the medial position. There was a small glottic opening along the length of the vocal folds. There was incomplete glottic closure was voicing. The mucosal wave was present with increased amp litude. There were no signs of glottic or supraglottic mucosal lesion or mass. There was mild interarytenoid pachydermia and post cricoid edema. The telescope was then slowly withdrawn and the patient tolerated the procedure throughout. Assessment/Plan: Bilateral vocal fold paralysis, immobility Stridor Dyspnea on exertion Parkinson's Disease His bilateral vocal fold paralysis/immobility is unlikely from his total thyroidectomy in 1998 as his symptoms worsened recently. It may be due to his Parkinson's Disease. I will obtain his prior MRIbrain results to review. I will obtain an updated CT neck to ensure no other lesion exists. We discussed the options of observation, tracheostomy, and direct microlaryngoscopy with vocal cordotomy/medial arytenoidectomy. All of the risks and benefits were reviewed and he will consider these surgical options. [facility]07-15-2024 History and physical note* Abbie Galvan MD - 09/02/2023 1:20 PM EDT PERIOPERATIVE SURGICAL HISTORY AND PHYSICAL UPDATE Pre-op Diagnoses: Bilateral vocal fold paralysis [J38.02] Procedure(s): TRACHEOSTOMY Surgeon(s): Surgeons and Role: * Abbie Galvan MD - Primary History and Physical Update: There were no vitals taken for this visit. I have reviewed Freddie Cole's medical, surgical and other pertinent history, and I have updated the medication and allergy information in the computerized patient record. I have examined the patient, reviewed the previous H&P completed on date (08/28/23) and there are no changes. Today's surgical history and physical update was completed by Abbie Galvan MD, 09/02/2023, 1:20 PM. I have examined the patient and reviewed the previous H&P completed on date 08/28/23 and there are no changes. Abbie Galvan MD, 09/02/2023, 1:20 PM. Source Note - Abbie Galvan MD - 08/28/2023 12:38 PM EDT 63 year old male presents for evaluation of bilateral vocal fold immobility and dyspnea. He has had dyspnea the past 3 years with more symptoms recently. He was diagnosed with laryngospasms in 2020. He has had episodes where he has trouble catching his breath and has had to go to the ER. He was having these monthly previously. His last laryngospasm event was one month ago and he is able to control them better. He was diagnosed with Parkinson's Disease in 2022 last year. He had a prior MRI brain. He has dyspnea at rest and with exertion. He has stridor at times. He has occasional dysphagia and choking episodes. He has some raspiness with lower volume to his voice. He had a thyroidectomy in 1998. He had Grave's disease and hyperthyroidism. He has a history of MARYJO and uses CPAP nightly. He is using oxygen during the daytime as needed. He has a history of CAD and coronary stent. He takes Plavix daily. He has a history of tobacco use. He quit tobacco in 2021. He used to smoke about 1 ppd. ROS: Constitutional: Negative for fever, weight loss and weight gain. Cardiovascular: Negative for chest pain and positive dyspnea on exertion. Respiratory: Is experiencing shortness of breath at rest. Gastrointestinal: Negative for nausea and vomiting. Neurological: Negative for headaches. Psychiatric: The patient is not nervous/anxious. The PMH, PSH, Medications, Allergies, and SH were reviewed and updated. Exam: General: Well-developed, well-nourished Communication and Voice: Mild raspiness Respiratory Respiratory effort: Equal inspiration and expiration without stridor Cardiovascular Peripheral Vascular: Warm extremities with equal color/perfusion Eyes: No nystagmus with equal extraocular motion bilaterally Neuro/Psych/Balance: Patient oriented to person, place, and time; Appropriate mood and affect; Gaitis intact with moderate imbalance; Cranial nerves I-XII are intact Head and Face Inspection: Normocephalic and atraumatic without mass or lesion Palpation: Facial skeleton intact without bony stepoffs Salivary Glands: No mass or tenderness Facial Strength: Facial motility symmetric and full bilaterally ENT Pinna: External ear intact and fully developed External canal: Canal is patent with intact skin Tympanic Membrane: Clear and mobile External Nose: No scar or anatomic deformity Internal Nose: Septum intact and midline. No edema, polyp, or rhinorrhea Lips, Teeth, and gums: Mucosa and teeth intact and viable TMJ: No pain to palpation with full mobility Oral cavity/oropharynx: No erythema or exudate, no lesions present Nasopharynx: No mass or lesion with intact mucosa Hypopharynx: Intact mucosa without pooling of secretions Larynx Unable to fully visualize Neck Neck and Trachea: Midline trachea without mass or lesion Thyroid: No mass or nodularity, thyroidectomy scar Lymphatics: No lymphadenopathy Procedure: Preoperative diagnosis: Bilateral vocal fold paralysis, stridor, dyspnea on exertion Postoperative diagnosis: Same Procedure: Flexible fiberoptic laryngoscopy with stroboscopy MD Linda Sneed, BOILER TESTER Anesthesia: Topical lidocaine and Afrin Complications: None Condition is stable throughout exam Indications and consent: The patient presents to the clinic with dyspnea, dysphonia, and stridor. Indirect laryngoscopy view was incomplete. Thus it was recommended that they undergo a flexible fiberoptic laryngoscopy with stroboscopy. All of the risks, benefits, and potential complications were reviewed with the patient preoperatively and verbal informed consent was obtained. Procedure: The patient was seated upright in the clinic. Topical lidocaine and Afrin were applied to the nasal cavity. After adequate anesthesia had occurred, we then proceeded to pass the flexible telescope into the nasal cavity. The nasal cavity was patent without rhinorrhea or polyp. The nasopharynx was also patent without mass or lesion. The base of tongue was visualized and was normal. Therewere no signs of pooling of secretions in the piriform sinuses. The true vocal folds were fixed bilaterally in the medial position. There was a small glottic opening along the length of the vocal folds. There was incomplete glottic closure was voicing. The mucosal wave was present with increased amp litude. There were no signs of glottic or supraglottic mucosal lesion or mass. There was mild interarytenoid pachydermia and post cricoid edema. The telescope was then slowly withdrawn and the patient tolerated the procedure throughout. Assessment/Plan: Bilateral vocal fold paralysis, immobility Stridor Dyspnea on exertion Parkinson's Disease His bilateral vocal fold paralysis/immobility is unlikely from his total thyroidectomy in 1998 as his symptoms worsened recently. It may be due to his Parkinson's Disease. I will obtain his prior MRIbrain results to review. I will obtain an updated CT neck to ensure no other lesion exists. We discussed the options of observation, tracheostomy, and direct microlaryngoscopy with vocal cordotomy/medial arytenoidectomy. All of the risks and benefits were reviewed and he will consider these surgical options. * Abbie Galvan MD - 08/28/2023 12:38 PM EDT 63 year old male presents for evaluation of bilateral vocal fold immobility and dyspnea. He has had dyspnea the past 3 years with more symptoms recently. He was diagnosed with laryngospasms in 2020. He has had episodes where he has trouble catching his breath and has had to go to the ER. He was having these monthly previously. His last laryngospasm event was one month ago and he is able to control them better. He was diagnosed with Parkinson's Disease in 2022 last year. He had a prior MRI brain. He has dyspnea at rest and with exertion. He has stridor at times. He has occasional dysphagia and choking episodes. He has some raspiness with lower volume to his voice. He had a thyroidectomy in 1998. He had Grave's disease and hyperthyroidism. He has a history of MARYJO and uses CPAP nightly. He is using oxygen during the daytime as needed. He has a history of CAD and coronary stent. He takes Plavix daily. He has a history of tobacco use. He quit tobacco in 2021. He used to smoke about 1 ppd. ROS: Constitutional: Negative for fever, weight loss and weight gain. Cardiovascular: Negative for chest pain and positive dyspnea on exertion. Respiratory: Is experiencing shortness of breath at rest. Gastrointestinal: Negative for nausea and vomiting. Neurological: Negative for headaches. Psychiatric: The patient is not nervous/anxious. The PMH, PSH, Medications, Allergies, and SH were reviewed and updated. Exam: General: Well-developed, well-nourished Communication and Voice: Mild raspiness Respiratory Respiratory effort: Equal inspiration and expiration without stridor Cardiovascular Peripheral Vascular: Warm extremities with equal color/perfusion Eyes: No nystagmus with equal extraocular motion bilaterally Neuro/Psych/Balance: Patient oriented to person, place, and time; Appropriate mood and affect; Gaitis intact with moderate imbalance; Cranial nerves I-XII are intact Head and Face Inspection: Normocephalic and atraumatic without mass or lesion Palpation: Facial skeleton intact without bony stepoffs Salivary Glands: No mass or tenderness Facial Strength: Facial motility symmetric and full bilaterally ENT Pinna: External ear intact and fully developed External canal: Canal is patent with intact skin Tympanic Membrane: Clear and mobile External Nose: No scar or anatomic deformity Internal Nose: Septum intact and midline. No edema, polyp, or rhinorrhea Lips, Teeth, and gums: Mucosa and teeth intact and viable TMJ: No pain to palpation with full mobility Oral cavity/oropharynx: No erythema or exudate, no lesions present Nasopharynx: No mass or lesion with intact mucosa Hypopharynx: Intact mucosa without pooling of secretions Larynx Unable to fully visualize Neck Neck and Trachea: Midline trachea without mass or lesion Thyroid: No mass or nodularity, thyroidectomy scar Lymphatics: No lymphadenopathy Procedure: Preoperative diagnosis: Bilateral vocal fold paralysis, stridor, dyspnea on exertion Postoperative diagnosis: Same Procedure: Flexible fiberoptic laryngoscopy with stroboscopy MD Linda Sneed, BOILER TESTER Anesthesia: Topical lidocaine and Afrin Complications: None Condition is stable throughout exam Indications and consent: The patient presents to the clinic with dyspnea, dysphonia, and stridor. Indirect laryngoscopy view was incomplete. Thus it was recommended that they undergo a flexible fiberoptic laryngoscopy with stroboscopy. All of the risks, benefits, and potential complications were reviewed with the patient preoperatively and verbal informed consent was obtained. Procedure: The patient was seated upright in the clinic. Topical lidocaine and Afrin were applied to the nasal cavity. After adequate anesthesia had occurred, we then proceeded to pass the flexible telescope into the nasal cavity. The nasal cavity was patent without rhinorrhea or polyp. The nasopharynx was also patent without mass or lesion. The base of tongue was visualized and was normal. Therewere no signs of pooling of secretions in the piriform sinuses. The true vocal folds were fixed bilaterally in the medial position. There was a small glottic opening along the length of the vocal folds. There was incomplete glottic closure was voicing. The mucosal wave was present with increased amp litude. There were no signs of glottic or supraglottic mucosal lesion or mass. There was mild interarytenoid pachydermia and post cricoid edema. The telescope was then slowly withdrawn and the patient tolerated the procedure throughout. Assessment/Plan: Bilateral vocal fold paralysis, immobility Stridor Dyspnea on exertion Parkinson's Disease His bilateral vocal fold paralysis/immobility is unlikely from his total thyroidectomy in 1998 as his symptoms worsened recently. It may be due to his Parkinson's Disease. I will obtain his prior MRIbrain results to review. I will obtain an updated CT neck to ensure no other lesion exists. We discussed the options of observation, tracheostomy, and direct microlaryngoscopy with vocal cordotomy/medial arytenoidectomy. All of the risks and benefits were reviewed and he will consider these surgical options. documented in this [facility]07-10-2024 History and physical note* Abbie Galvan MD - 08/28/2023 12:38 PM EDT 63 year old male presents for evaluation of bilateral vocal fold immobility and dyspnea. He has had dyspnea the past 3 years with more symptoms recently. He was diagnosed with laryngospasms in 2020. He has had episodes where he has trouble catching his breath and has had to go to the ER. He was having these monthly previously. His last laryngospasm event was one month ago and he is able to control them better. He was diagnosed with Parkinson's Disease in 2022 last year. He had a prior MRI brain. He has dyspnea at rest and with exertion. He has stridor at times. He has occasional dysphagia and choking episodes. He has some raspiness with lower volume to his voice. He had a thyroidectomy in 1998. He had Grave's disease and hyperthyroidism. He has a history of MARYJO and uses CPAP nightly. He is using oxygen during the daytime as needed. He has a history of CAD and coronary stent. He takes Plavix daily. He has a history of tobacco use. He quit tobacco in 2021. He used to smoke about 1 ppd. ROS: Constitutional: Negative for fever, weight loss and weight gain. Cardiovascular: Negative for chest pain and positive dyspnea on exertion. Respiratory: Is experiencing shortness of breath at rest. Gastrointestinal: Negative for nausea and vomiting. Neurological: Negative for headaches. Psychiatric: The patient is not nervous/anxious. The PMH, PSH, Medications, Allergies, and SH were reviewed and updated. Exam: General: Well-developed, well-nourished Communication and Voice: Mild raspiness Respiratory Respiratory effort: Equal inspiration and expiration without stridor Cardiovascular Peripheral Vascular: Warm extremities with equal color/perfusion Eyes: No nystagmus with equal extraocular motion bilaterally Neuro/Psych/Balance: Patient oriented to person, place, and time; Appropriate mood and affect; Gaitis intact with moderate imbalance; Cranial nerves I-XII are intact Head and Face Inspection: Normocephalic and atraumatic without mass or lesion Palpation: Facial skeleton intact without bony stepoffs Salivary Glands: No mass or tenderness Facial Strength: Facial motility symmetric and full bilaterally ENT Pinna: External ear intact and fully developed External canal: Canal is patent with intact skin Tympanic Membrane: Clear and mobile External Nose: No scar or anatomic deformity Internal Nose: Septum intact and midline. No edema, polyp, or rhinorrhea Lips, Teeth, and gums: Mucosa and teeth intact and viable TMJ: No pain to palpation with full mobility Oral cavity/oropharynx: No erythema or exudate, no lesions present Nasopharynx: No mass or lesion with intact mucosa Hypopharynx: Intact mucosa without pooling of secretions Larynx Unable to fully visualize Neck Neck and Trachea: Midline trachea without mass or lesion Thyroid: No mass or nodularity, thyroidectomy scar Lymphatics: No lymphadenopathy Procedure: Preoperative diagnosis: Bilateral vocal fold paralysis, stridor, dyspnea on exertion Postoperative diagnosis: Same Procedure: Flexible fiberoptic laryngoscopy with stroboscopy MD Linda Sneed, BOILER TESTER Anesthesia: Topical lidocaine and Afrin Complications: None Condition is stable throughout exam Indications and consent: The patient presents to the clinic with dyspnea, dysphonia, and stridor. Indirect laryngoscopy view was incomplete. Thus it was recommended that they undergo a flexible fiberoptic laryngoscopy with stroboscopy. All of the risks, benefits, and potential complications were reviewed with the patient preoperatively and verbal informed consent was obtained. Procedure: The patient was seated upright in the clinic. Topical lidocaine and Afrin were applied to the nasal cavity. After adequate anesthesia had occurred, we then proceeded to pass the flexible telescope into the nasal cavity. The nasal cavity was patent without rhinorrhea or polyp. The nasopharynx was also patent without mass or lesion. The base of tongue was visualized and was normal. Therewere no signs of pooling of secretions in the piriform sinuses. The true vocal folds were fixed bilaterally in the medial position. There was a small glottic opening along the length of the vocal folds. There was incomplete glottic closure was voicing. The mucosal wave was present with increased amp litude. There were no signs of glottic or supraglottic mucosal lesion or mass. There was mild interarytenoid pachydermia and post cricoid edema. The telescope was then slowly withdrawn and the patient tolerated the procedure throughout. Assessment/Plan: Bilateral vocal fold paralysis, immobility Stridor Dyspnea on exertion Parkinson's Disease His bilateral vocal fold paralysis/immobility is unlikely from his total thyroidectomy in 1998 as his symptoms worsened recently. It may be due to his Parkinson's Disease. I will obtain his prior MRIbrain results to review. I will obtain an updated CT neck to ensure no other lesion exists. We discussed the options of observation, tracheostomy, and direct microlaryngoscopy with vocal cordotomy/medial arytenoidectomy. All of the risks and benefits were reviewed and he will consider these surgical options. [facility]05-22-2024 History of Present illness Narrative* Abbie Galvan MD - 07/10/2023 2:20 PM EDT 63 year old male presents for evaluation of bilateral vocal fold immobility and dyspnea. He has had dyspnea the past 3 years with more symptoms recently. He was diagnosed with laryngospasms in 2020. He has had episodes where he has trouble catching his breath and has had to go to the ER. He was having these monthly previously. His last laryngospasm event was one month ago and he is able to control them better. He was diagnosed with Parkinson's Disease in 2022 last year. He had a prior MRI brain. He has dyspnea at rest and with exertion. He has stridor at times. He has occasional dysphagia and choking episodes. He has some raspiness with lower volume to his voice. He had a thyroidectomy in 1998. He had Grave's disease and hyperthyroidism. He has a history of MARYJO and uses CPAP nightly. He is using oxygen during the daytime as needed. He has a history of CAD and coronary stent. He takes Plavix daily. He has a history of tobacco use. He quit tobacco in 2021. He used to smoke about 1 ppd. ROS: Constitutional: Negative for fever, weight loss and weight gain. Cardiovascular: Negative for chest pain and positive dyspnea on exertion. Respiratory: Is experiencing shortness of breath at rest. Gastrointestinal: Negative for nausea and vomiting. Neurological: Negative for headaches. Psychiatric: The patient is not nervous/anxious. The PMH, PSH, Medications, Allergies, and SH were reviewed and updated. Exam: General: Well-developed, well-nourished Communication and Voice: Mild raspiness Respiratory Respiratory effort: Equal inspiration and expiration without stridor Cardiovascular Peripheral Vascular: Warm extremities with equal color/perfusion Eyes: No nystagmus with equal extraocular motion bilaterally Neuro/Psych/Balance: Patient oriented to person, place, and time; Appropriate mood and affect; Gaitis intact with moderate imbalance; Cranial nerves I-XII are intact Head and Face Inspection: Normocephalic and atraumatic without mass or lesion Palpation: Facial skeleton intact without bony stepoffs Salivary Glands: No mass or tenderness Facial Strength: Facial motility symmetric and full bilaterally ENT Pinna: External ear intact and fully developed External canal: Canal is patent with intact skin Tympanic Membrane: Clear and mobile External Nose: No scar or anatomic deformity Internal Nose: Septum intact and midline. No edema, polyp, or rhinorrhea Lips, Teeth, and gums: Mucosa and teeth intact and viable TMJ: No pain to palpation with full mobility Oral cavity/oropharynx: No erythema or exudate, no lesions present Nasopharynx: No mass or lesion with intact mucosa Hypopharynx: Intact mucosa without pooling of secretions Larynx Unable to fully visualize Neck Neck and Trachea: Midline trachea without mass or lesion Thyroid: No mass or nodularity, thyroidectomy scar Lymphatics: No lymphadenopathy Procedure: Preoperative diagnosis: Bilateral vocal fold paralysis, stridor, dyspnea on exertion Postoperative diagnosis: Same Procedure: Flexible fiberoptic laryngoscopy with stroboscopy MD Linda Sneed, BOILER TESTER Anesthesia: Topical lidocaine and Afrin Complications: None Condition is stable throughout exam Indications and consent: The patient presents to the clinic with dyspnea, dysphonia, and stridor. Indirect laryngoscopy view was incomplete. Thus it was recommended that they undergo a flexible fiberoptic laryngoscopy with stroboscopy. All of the risks, benefits, and potential complications were reviewed with the patient preoperatively and verbal informed consent was obtained. Procedure: The patient was seated upright in the clinic. Topical lidocaine and Afrin were applied to the nasal cavity. After adequate anesthesia had occurred, we then proceeded to pass the flexible telescope into the nasal cavity. The nasal cavity was patent without rhinorrhea or polyp. The nasopharynx was also patent without mass or lesion. The base of tongue was visualized and was normal. Therewere no signs of pooling of secretions in the piriform sinuses. The true vocal folds were fixed bilaterally in the medial position. There was a small glottic opening along the length of the vocal folds. There was incomplete glottic closure was voicing. The mucosal wave was present with increased amp litude. There were no signs of glottic or supraglottic mucosal lesion or mass. There was mild interarytenoid pachydermia and post cricoid edema. The telescope was then slowly withdrawn and the patient tolerated the procedure throughout. Assessment/Plan: Bilateral vocal fold paralysis, immobility Stridor Dyspnea on exertion Parkinson's Disease His bilateral vocal fold paralysis/immobility is unlikely from his total thyroidectomy in 1998 as his symptoms worsened recently. It may be due to his Parkinson's Disease. I will obtain his prior MRIbrain results to review. I will obtain an updated CT neck to ensure no other lesion exists. We discussed the options of observation, tracheostomy, and direct microlaryngoscopy with vocal cordotomy/medial arytenoidectomy. All of the risks and benefits were reviewed and he will consider these surgical options. documented in this [facility]04-10-2024 History of Present illness Narrative* Cinthia Trammell MD - 05/29/2023 1:30 PM EDT Subjective Patient ID: Freddie Cole is a 63 y.o. male. HPI Patient is here for yearly f/u. Most recent PSA was 0.72 on 06/11. Prior PSA was 0.42 on 03/12. . Prior PSA waS 0.37 on 01/08. Chronic BPH sx are mild and stable. Some urgency and frequency. Denies dysuria. Denies hematuria. Nocturia x3-4. He is taking Flomax BID. He feels this is helpful. He has failed Gemtesa and Myrbetriq in the past. ED is not an issue. He is taking Isosorbide. Review of Systems Constitutional: Negative for chills and fever. HENT: Negative. Eyes: Negative. Respiratory: Negative for cough and shortness of breath. Cardiovascular: Negative for chest pain and leg swelling. Gastrointestinal: Negative for nausea. Endocrine: Negative. Genitourinary: Negative for difficulty urinating. Negative except for documented in HPI Allergic/Immunologic: Negative. Neurological: Alert & oriented X 3 Hematological: Denies blood thinners Psychiatric/Behavioral: Negative. Objective Physical Exam Vitals and nursing note reviewed. Constitutional: General: He is not in acute distress. Appearance: Normal appearance. Pulmonary: Effort: Pulmonary effort is normal. Abdominal: Tenderness: There is no abdominal tenderness. Genitourinary: Comments: Kidneys non palpable bilaterally Bladder non palpable or tender Scrotum no mass, No hydrocele Epididymis- No spermatocele. Non Tender. Testicles: No mass. WNL Urethra: No discharge Penis within normal limits... No lesions. circumcised Prostate - symmetric, no nodules. BENIGN Seminal Vesicals: No mass. Sphincter tone: normal Neurological: Mental Status: He is alert. Assessment/Plan Diagnoses and all orders for this visit: Benign prostatic hyperplasia with urinary obstruction and other lower urinary tract symptoms - tamsulosin (Flomax) 0.4 mg 24 hr capsule; Take 1 capsule (0.4 mg) by mouth 2 times a day. Nocturia - Prostate Specific Antigen; Future Erectile disorder All available PSA values reviewed, Options discussed. Questions answered. Diet changes for prostate health discussed and educational information given. Pros/Cons of prostatehealth supplements discussed. Treatment options for LUTS reviewed Flomax Rx given Discussed timed voiding. Discussed fluid and caffeine intake Treatment options for ED reviewed-On Isosorbide Lifestyle change to help prevent UTIs discussed. Encouraged fluid intake. F/U 1 year with PSA documented in this [facility] Work Phone: 1(189) 964-259501-30-2024 Progress note Author Harrison Spears [facility] March 19, 2023 10:23am Note Date/Time March 19, 2023 8 :16am [facility] Medical Records Department [address] [place] [address] Progress Note - Hospitalist 03/19/23 0814 MR#: [id number] Acct: [id number] Name: FREDDIE COLE Rep #:[id number] : 1960 62 From: Harrison Spears DO PCP: Dr. Biju Lobo, DO Status:ADM IN Location: MS3 LO730-2 Reason for Visit Reason for Visit: Diagnoses Diarrhea, unspecified (03/16/23) Subjective Subjective No further diarrhea. Tolerating diet. Has had a raspy voice for years. Did have shortness of breath when he initially arrived but that is subsequent resolved. Objective Data Objective Data Vital Signs: Vital Signs Temp Pulse Resp BP Pulse Ox O2 Del Method O2 Flow Rate 36.8 C 84 23 H 161/88 H 92 Room Air 2 03/19/23 05:29 03/19/23 07:17 03/19/23 07:17 03/19/23 05:29 03/19/23 07:17 03/19/23 07:17 03/18/23 14:05 Oxygen Flow Rate (L/min) 2 Oxygen Delivery Method Room Air Weight: 98.5 kg Body Mass Index (BMI) 32.1 Intake & Output: Intake and Output for Last 24 Hours 03/17/23 03/18/23 03/19/23 23:59 23:59 23:59 Intake Total 3585.42 / 3585.42 1001.5 / 1001.5 200 / 200 Output Total 0 / 0 Balance 3585.42 / 3585.42 1001.5 / 1001.5 200 / 200 Lab / Micro Data 03/19/23 06:36 03/19/23 06:36 Labs: Laboratory Results - last 24 hr 03/19/23 06:36: WBC 6.1, RBC 4.76, Hgb 14.6, Hct 45.9, MCV 96.4 H, MCH 30.7, MCHC 31.8 L, RDW Std Deviation 47.8 H, RDW Coeff of Nick 13.5, Plt Count 146 L, MPV 12.1 H, Immature Gran % (Auto) 0.200, Neut % (Auto) 67.0, Lymph % (Auto) 22.9, Solano % (Auto) 7.6, Eos % (Auto) 2.0, Baso % (Auto) 0.3, Absolute Neuts (auto) 4.1, Absolute Lymphs (auto) 1.39, Nucleated RBC % 0, Sodium 140, Potassium 3.6, Chloride 107, Carbon Dioxide 29.0, Anion Gap 4 L, BUN 7, Creatinine1.01, Estim Creat Clear Calc 85.51, Est GFR (MDRD) Af Amer 95, Est GFR (MDRD) Non-Af 79, BUN/Creatinine Ratio 6.9 L, Glucose 91, Calcium 9.2 Micro: Microbiology 03/16/23 13:43 Blood Culture (Wb) - Anticubital Right Blood Culture - Preliminary No growth in 48 hours. 03/16/23 13:35 Blood Culture (Wb) - Anticubital Left Blood Culture - Preliminary No growth in 48 hours. 03/16/23 14:10 Urine, Catheterized Urine Culture - Final Culture exhibits no growth. 03/16/23 11:30 Stool Enteric Bacteriology - Final 03/17/23 11:30 Stool Stool Lactoferrin - Final 03/17/23 11:30 Stool Stool Occult Blood (FRANCESCA) - Final 03/16/23 14:10 Urine, Clean Catch Streptococcus pneumoniae Antigen (M - Final 03/16/23 14:10 Urine, Clean Catch Legionella Antigen - Final Physical Exam Const alert and no apparent distress Constitutional Narrative: Sitting up in bed drinking coffee. No conversational dyspnea. No respiratory distress. HEENT head/scalp atraumatic and moist oral mucous membranes Resp no use of accessory muscles Assessment & Plan Assessment/Plan (1) Diarrhea: QUALIFIERS: Diarrhea type: unspecified type Qualified Code(s): R19.7 - Diarrhea, unspecified PLAN: Plan Acute diarrhea and abdominal cramps * possible small bowel inflammation/infectious cause, exact etiology unclear: * CT abdomen with IV contrast distal small bowel thickening, fluid distention with mesenteric edema. Colonic diverticulosis without diverticulitis. 4.6 cm right sinus and cortical renal cyst. * discussed with the weight loss counselor Dr. Beauchamp. Consult requested. * Stool studies: infectious work up negative. Lactoferrin negative. C. diff test cancelled because of hard stool. C. diff essentially ruled out. * EGD showed mild inflammation in the ileum s/s ileitis which was biopsied. SAUL Beauchamp, he feels it is less likely Crohn's disease. No treatment at this time. Await on Bx results. Esophagitis * Non-severe actue esophagitis w/o bleeding. No gross lesions in the entire stomach. * SAUL Beauchamp, recommends PPI. * Patient are taking omeprazole twice daily. Recommend continue with but also recommended dietary changes and including minimizing caffeine, minimizing to no alcohol, not eating several hours prior to going to sleep as well as using a wedge pillow to keep them propped up. Chronic conditions: * Persistent asthma, severe with no exacerbation and obstructive sleep apnea. Patient follows in pulmonary clinic with Dr. Nayak and Karen Lora, EPIFANIO. Was recommended low-salt diet, AutoPap and weight loss and inhaler Spiriva. Continue CPAP at night. Bronchodilator DuoNeb as needed for wheezing/airway spasm. Monitor pulse ox. Patient had spirometry/PFT in August 2022 which was reported unreliable result with inconsistent and did not meet criteria for acceptability and reproducibility. Plethysmography showed mild restriction, TLC 76% predicted, FRC 69%, RV/TLC 94%, VC 69%. No evidence of hyperinflation. DLCO 81% predicted.03/17: Wheezing and stridor better. AutoPap * Chronic HFpEF/diastolic heart failure and right carotid stenosis: I do not see any echo report in our system but patient might had outside. Does not need acute echo studies. Patient has moderate right extracranial ICA and normal left ICA. Patient is on baby aspirin and Plavix. Patient on diuretic Lasix, spironolactone, rosuvastatin, isosorbide mononitrate, and Zetia * Cricopharyngeal dysphagia: Patient has history of recurrent trouble swallowing and has seen Dr. Beauchamp in the office in November 2020. Patient had extensive evaluation including CT of the chest, CT of the neck which did not show any gross abnormality. History of Graves' disease status post thyroidectomy. On thyroid replacement treatment. No history of GERD. He was referred to [facility] care outpatient. EGD on 11/23/2020 shows LA grade B reflux esophagitis, normal stomach and D2. He also had dilatation of cricopharyngeal dysphagia. Patient had modified barium swallow which was reported mild oropharyngeal phase dysphagia. There was also concern was a spasm of vocal cords. Patient was referred to pulmonology and ENT. * Parkinson disease: Patient on carbidopa levodopa.He is also on carbidopa levodopa.He follows neurologist Dr. Hernandez. * Patient with a chronic raspy voice: Unclear this is due to just aging or this may be related with reflux. Can follow-up with ENT as needed. DVT prophylaxis, moderate risk: Enoxaparin 40 mill subcu daily. 03/19/23 1023 <Electronically signed by Harrison Spears DO> Cosigner Signature (if applicable): CC: ~ Signed [facility] Work Phone: 1(434) 326-770301-29-2024 Progress note Author Harrison Spears [facility] March 18, 2023 3:09pm Note Date/Time March 18, 2023 8 :51am [facility] Medical Records Department [address] [place] [address] Progress Note - Hospitalist 03/18/23 0844 MR#: [id number] Acct: [id number] Name: FREDDIE COLE Rep #:[id number] : 1960 62 From: Harrison Spears DO PCP: Dr. Biju Lobo, Status:ADM IN Location: [place] [id number] Reason for Visit Reason for Visit: Diagnoses Diarrhea, unspecified (03/16/23) Subjective Subjective Feels well post EGD/colonoscopy. Objective Data Objective Data Vital Signs: Vital Signs Temp Pulse Resp BP Pulse Ox O2 Del Method O2 Flow Rate 36.7 C 84 22 H 124/77 H 96 Room Air 2 03/18/23 04:26 03/18/23 07:07 03/18/23 07:07 03/18/23 04:26 03/18/23 07:07 03/18/23 07:07 03/17/23 10:00 Oxygen Flow Rate (L/min) 2 Oxygen Delivery Method Room Air Weight: 98.7 kg Body Mass Index (BMI) 32.2 Intake & Output: Intake and Output for Last 24 Hours 03/16/23 03/17/23 03/18/23 23:59 23:59 23:59 Intake Total 2185.34 / 2185.34 3585.42 / 3585.42 737.5 / 737.5 Output Total 0 / 0 Balance 2185.34 / 2185.34 3585.42 / 3585.42 737.5 / 737.5 Lab / Micro Data 03/18/23 04:56 03/18/23 04:56 Labs: Laboratory Results - last 24 hr 03/16/23 11:30: Stl Giardia Antigen Cancelled 03/17/23 11:30: Miscellaneous Test Cancelled 03/18/23 04:56: WBC 5.8, RBC 4.24 L, Hgb 13.0, Hct 40.7, MCV 96.0 H, MCH 30.7, MCHC 31.9 L, RDW Std Deviation 47.8 H, RDW Coeff of Nick 13.6, Plt Count 141 L, MPV 11.8, Immature Gran % (Auto) 0.200, Neut % (Auto) 66.4, Lymph % (Auto) 22.1,Solano % (Auto) 9.2, Eos % (Auto) 1.9, Baso % (Auto) 0.2, Absolute Neuts (auto) 3.9, Absolute Lymphs (auto) 1.28, Nucleated RBC % 0, Sodium 140, Potassium 3.6, Chloride 109 H, Carbon Dioxide 26.0, Anion Gap 5, BUN 5 L, Creatinine 1.01, Estim Creat Clear Calc 85.59, Est GFR (MDRD) Af Amer 95, Est GFR (MDRD) Non-Af 79, BUN/Creatinine Ratio 5.0 L, Glucose 90, Calcium 9.3, TSH 0.35 L Micro: Microbiology 03/16/23 14:10 Urine, Catheterized Urine Culture - Final Culture exhibits no growth. 03/16/23 11:30 Stool Enteric Bacteriology - Final 03/17/23 11:30 Stool Stool Lactoferrin - Final 03/17/23 11:30 Stool Stool Occult Blood (FRANCESCA) - Final 03/16/23 14:10 Urine, Clean Catch Streptococcus pneumoniae Antigen (M - Final 03/16/23 14:10 Urine, Clean Catch Legionella Antigen - Final Physical Exam Const alert and no apparent distress HEENT head/scalp atraumatic and moist oral mucous membranes Neck Neck Narrative: no thyromegaly. Cardio regular rate, regular rhythm, S1 normal heart sound and S2 normal heart sound GI normal to inspection, nondistended, normoactive bowel sounds, soft to palpation,non-tender and non-distended Extremity normal to inspection, full ROM and no clubbing, cyanosis or edema Neuro Sensorium / Orientation: awake and alert Assessment & Plan Assessment/Plan (1) Diarrhea: QUALIFIERS: Diarrhea type: unspecified type Qualified Code(s): R19.7 - Diarrhea, unspecified PLAN: Plan Acute diarrhea and abdominal cramps * possible small bowel inflammation/infectious cause, exact etiology unclear: * CT abdomen with IV contrast distal small bowel thickening, fluid distention with mesenteric edema. Colonic diverticulosis without diverticulitis. 4.6 cm right sinus and cortical renal cyst. * discussed with the weight loss counselor Dr. Beauchamp. Consult requested. * Stool studies: infectious work up negative. Lactoferrin negative. C. diff test cancelled because of hard stool. C. diff essentially ruled out. * EGD showed mild inflammation in the ileum s/s ileitis which was biopsied. SAUL Beauchamp, he feels it is less likely Crohn's disease. No treatment at this time. Await on Bx results. Esophagitis * Non-severe actue esophagitis w/o bleeding. No gross lesions in the entire stomach. * SAUL Beauchamp, recommends PPI. Chronic conditions: * Persistent asthma, severe with no exacerbation and obstructive sleep apnea. Patient follows in pulmonary clinic with Dr. Nayak and Karen Lora NP. Was recommended low-salt diet, AutoPap and weight loss and inhaler Spiriva. Continue CPAP at night. Bronchodilator DuoNeb as needed for wheezing/airway spasm. Monitor pulse ox. Patient had spirometry/PFT in August 2022 which was reported unreliable result with inconsistent and did not meet criteria for acceptability and reproducibility. Plethysmography showed mild restriction, TLC 76% predicted, FRC 69%, RV/TLC 94%, VC 69%. No evidence of hyperinflation. DLCO 81% predicted.03/17: Wheezing and stridor better. AutoPap * Chronic HFpEF/diastolic heart failure and right carotid stenosis: I do not see any echo report in our system but patient might had outside. Does not need acute echo studies. Patient has moderate right extracranial ICA and normal left ICA. Patient is on baby aspirin and Plavix. Patient on diuretic Lasix, spironolactone, rosuvastatin, isosorbide mononitrate, and Zetia * Cricopharyngeal dysphagia: Patient has history of recurrent trouble swallowing and has seen Dr. Beauchamp in the office in November 2020. Patient had extensive evaluation including CT of the chest, CT of the neck which did not show any gross abnormality. History of Graves' disease status post thyroidectomy. On thyroid replacement treatment. No history of GERD. He was referred to [facility] outpatient. EGD on 11/23/2020 shows LA grade B reflux esophagitis, normal stomach and D2. He also had dilatation of cricopharyngeal dysphagia. Patient had modified barium swallow which was reported mild oropharyngeal phase dysphagia. There was also concern was a spasm of vocal cords. Patient was referred to pulmonology and ENT. * Parkinson disease: Patient on carbidopa levodopa.He is also on carbidopa levodopa.He follows neurologist Dr. Hernandez. DVT prophylaxis, moderate risk: Enoxaparin 40 mill subcu daily. Charges/Coding Visit Charges Inpatient E&M: 27884 Subs Hosp L2 03/18/23 1507 <Electronically signed by Harrison Spears DO> Cosigner Signature (if applicable): CC: ~ Signed [facility] Work Phone: 1(324) 421-647601-29-2024 Procedure [facility] 03-18-2023 Procedure [facility]01-29-2024 Procedure note [facility]01-29-2024 Procedure [facility] 03-17-2023 Progress note Author Delfin Russell [facility] March 17, 2023 11:58am Note Date/Time March 17, 2023 1 1:58am [facility] Medical Records Department [address] [place] [id number] Progress Note - Hospitalist 03/17/23810 MR#: [id number] Acct: [id number] Name: FREDDIE COLE Rep #:[id number] : 1960 62 From: Delfin Dyer PCP: Dr. Biju Lobo DO Status:ADM IN [facility] Reason for Visit Reason for Visit: Diagnoses Diarrhea, unspecified (03/16/23) Objective Data Objective Data Vital Signs: Vital Signs Temp Pulse Resp BP Pulse Ox O2 Del Method O2 Flow Rate 97.9 F 82 20 H 134/89 H 96 Nasal Cannula 2 03/17/23 05:24 03/17/23 07:36 03/17/23 07:36 03/17/23 05:24 03/17/23 07:36 03/17/23 07:36 03/17/23 07:36 Oxygen Flow Rate (L/min) 2 Oxygen Delivery Method Nasal Cannula Weight: 220 lb Body Mass Index (BMI) 32.5 Intake & Output: Intake and Output for Last 24 Hours 03/15/23 03/16/23 03/17/23 23:59 23:59 23:59 Intake Total 2185.34 / 2185.34 1000 / 1000 Output Total 0 / 0 Balance 2185.34 / 2185.34 1000 / 1000 Lab / Micro Data 03/17/23 05:51 03/17/23 05:51 Labs: Laboratory Results - last 24 hr 03/16/23 10:30: WBC 6.6, RBC 4.76, Hgb 14.6, Hct 43.9, MCV 92.2, MCH 30.7, MCHC 33.3, RDW Std Deviation 44.6 H, RDW Coeff of Nick 13.2, Plt Count 158, MPV 11.5, Immature Gran % (Auto) 0.300, Neut % (Auto) 70.6 H, Lymph % (Auto) 22.0, [place] % (Auto) 6.2, Eos % (Auto) 0.6, Baso % (Auto) 0.3, Absolute Neuts (auto) 4.7, Absolute Lymphs (auto) 1.46, Nucleated RBC % 0, Sodium 136, Potassium 3.4 L, Chloride 101, Carbon Dioxide 32.0, Anion Gap 3 L, BUN 14, Creatinine 1.37 H, Estim Creat Clear Calc 62.93, Est GFR (MDRD) Af Amer 67, Est GFR (MDRD) Non-Af 56 L, BUN/Creatinine Ratio 10.2, Glucose 140 H, Calcium 9.2, Phosphorus 2.5, Magnesium 2.3, Total Bilirubin 0.80, Direct Bilirubin 0.29, AST 13 L, ALT 8 L, Alkaline Phosphatase 77, Troponin I High Sens 39, B-Natriuretic Peptide 81.7, Total Protein 7.1, Albumin 3.6, Globulin 3.5, Lipase 15 03/16/23 13:35: Lactic Acid 1.1 03/16/23 14:10: Urine Color Yellow, Urine Clarity Clear, Urine pH 6.0, Ur Specific [place] 1.015, Urine Protein 15 H, Urine Glucose (UA) Normal, Urine Ketones 5 H, Urine Occult Blood 10 H, Urine Nitrite Negative, Urine Bilirubin Negative, Urine Urobilinogen Normal, Ur Leukocyte Esterase 25 H, Urine RBC 0 SEEN, Urine WBC 0 SEEN, Ur Squamous Epith Cells 0-5 SEEN, Urine Bacteria 0 SEEN,Urine Mucus 1+ 03/17/23 05:51: WBC 5.9, RBC 4.37 L, Hgb 13.5, Hct 41.6, MCV 95.2 H, MCH 30.9, MCHC 32.5, RDW Std Deviation 46.7 H, RDW Coeff of Nick 13.3, Plt Count 143 L, MPV12.1 H, Immature Gran % (Auto) 0.200, Neut % (Auto) 69.9, Lymph % (Auto) 20.4, Sol[place] % (Auto) 7.8, Eos % (Auto) 1.2, Baso % (Auto) 0.5, Absolute Neuts (auto) 4.1, Absolute Lymphs (auto) 1.20, Nucleated RBC % 0, Sodium 139, Potassium 3.8, Chloride 109 H, Carbon Dioxide 28.0, Anion Gap 2 L, BUN 9, Creatinine 1.11, Estim Creat Clear Calc 78.30, Est GFR (MDRD) Af Amer 86, Est GFR (MDRD) Non-Af 71, BUN/Creatinine Ratio 8.1 L, Glucose 98, Calcium 9.0, TSH 0.46 Micro: Microbiology 03/16/23 14:10 Urine, Clean Catch Streptococcus pneumoniae Antigen (M - Final 03/16/23 14:10 Urine, Clean Catch Legionella Antigen - Final Radiography Diagnostic Testing: Radiology Impression Chest X-Ray 03/16/23 10:24 IMPRESSION: Mild bibasilar atelectasis or pneumonia. Electronically Signed: Valarie Lemos MD at 10:53 EST Reading Location ID and State: [facility] / [place] Tel , Service support , Abdomen/Pelvis CT 03/16/23 11:07 IMPRESSION: Mild enteritis with mild fluid distention, wall thickening, and mesenteric edema of distal small bowel. Colonic diverticulosis without acute diverticulitis. Other chronic findings as above. Electronically Signed: Valarie Lemos MD at 11:58 EST Reading Location ID and State: [facility] [place] Tel , Service support , Chest CTA 03/16/23 11:07 IMPRESSION: No evidence of pulmonary embolism. Mild left lower lobe pneumonia. Mild right lower lobe atelectasis. Electronically Signed: Valarie Lemos MD at 11:52 EST Reading Location ID and State: [facility] / [place] Tel , Service support , Physical Exam Narrative Seen and examined No fever. Abdominal cramps and pain also better. No nausea or vomiting. He cough has improved. Physical exam General: Alert, Oriented x3, Cooperative HEENT: Atraumatic, PERRLA, EOMI, Normocephalic Oral: Oral mucosa dry. No Gingival or Mucosal Lesions/ Ulcerations Neck: Supple, No JVD, Negative Carotid Bruits Chest wall/Lungs: Air entry diminished in bilateral lung bases. Stridor/wheezing improved. No distal airways crepitation/rales Cardiovascular: Regular rate, Regular Rhythm, Normal S1, Normal S2, No M/G/R Abdomen: Soft, mild gaseous distention. No acute/ rebound tenderness. Bowel sounds sluggish. No palpable mass. : Acute retention urine required straight cath about more than 500 mL clear urine drained. No dysuria. No renal angle tenderness. No suprapubic tenderness. Extremities: No edema, Capillary Refill Less than 3 Seconds Skin: No rashes, No breakdown Musculoskeletal: No Tenderness to Palpation of Joints or Extremities Neurological: Cranial nerves II-XII grossly intact, DTR 2+/4. No acute focal neurological deficit. Psych/Mental Status: Flat affect. Assessment & Plan Assessment/Plan (1) Diarrhea: QUALIFIERS: Diarrhea type: unspecified type Qualified Code(s): R19.7 - Diarrhea, unspecified PLAN: Plan This is a 62-year-old gentleman being admitted for lower tuner diarrhea and abdominal cramps for about 10 days. No fever. 1. Acute diarrhea and abdominal cramps possible small bowel inflammation/infectious cause, exact etiology unclear: [facility] fluid 1 L bolus and then 250 mill per hour then 125 mill per hour. Monitor intake and output. Stool studies including enteric pathogen, stool C. difficile, leukocytes, occult blood and calprotectin ordered.CT abdomen with IV contrast images individually reviewed and agree with the distal small bowel thickening, fluid distention with mesenteric edema. Colonic diverticulosis without diverticulitis. 4.6 cm right sinus and cortical renal cyst. Discussed with the weight loss counselor Dr. Beauchamp. Consult requested. Possible differentials were discussed with the patient's and daughter. 03/17: TSH normal. Calcium normal. Electrolytes in normal range. Lactic acid normal. Urinary antigens are negative. Urine culture prelim shows no growth. Patient did not had bowel movement since admission therefore stool studies were not sent. Stool osmolality, sodium and potassium also ordered. Patient has abdominal distention but no pain with no vomiting or fever. Plan for EGD and colonoscopy tomorrow AM. Possible differential diagnosis considered for infectious diarrhea, IBD, ischemia, vasculitides, eosinophilic enteritis or drug-related. 2. Chronic pulmonary conditions: Persistent asthma, severe with no exacerbationand obstructive sleep apnea. Patient follows in pulmonary clinic with Dr. Nayak and Karen Lora, EPIFANIO. Was recommended low-salt diet, AutoPap and weight loss and inhaler Spiriva. Continue CPAP at night. Bronchodilator DuoNebas needed for wheezing/airway spasm. Monitor pulse ox. Patient had spirometry/PFT in August 2022 which was reported unreliable result with inconsistent and did not meet criteria for acceptability and reproducibility. Plethysmography showed mild restriction, TLC 76% predicted, FRC 69%, RV/TLC 94%,VC 69%. No evidence of hyperinflation. DLCO 81% predicted. 03/17: Wheezing and stridor better. AutoPap 3. Chronic HFpEF/diastolic heart failure and right carotid stenosis: I do not see any echo report in our system but patient might had outside. Does not need acute echo studies. Patient has moderate right extracranial ICA and normal leftICA. Patient is on baby aspirin and Plavix. Patient on diuretic Lasix, spironolactone, rosuvastatin, isosorbide mononitrate, and Zetia 4. Cricopharyngeal dysphagia: Patient has history of recurrent trouble swallowing and has seen Dr. Beauchamp in the office in November 2020. Patient had extensive evaluation including CT of the chest, CT of the neck which did not show any gross abnormality. History of Graves' disease status post thyroidectomy. On thyroid replacement treatment. No history of GERD. He was referred to [facility] outpatient. EGD on 11/23/2020 shows LA grade B reflux esophagitis, normal stomach and D2. He also had dilatation of cricopharyngeal dysphagia. Patient had modified barium swallow which was reported mild oropharyngeal phase dysphagia. There was also concern was a spasmof vocal cords. Patient was referred to pulmonology and ENT. 5. Parkinson disease: Patient on carbidopa levodopa.He is also on carbidopa levodopa.He follows neurologist Dr. Hernandez. DVT prophylaxis, moderate risk: Enoxaparin 40 mill subcu daily. Discontinue ifplatelet count drops less than 50,000 or hemoglobin less than 8 g% Living will/advanced directive/end of life care: Patient does have living will or advanced directive. His is power of assistant district attorney for health. After discussion of benefits/risks procedures involved with full code, DNR CC arrest and DNR CC, the patient opted for full code. Patient does want artificial life support including intubation, tube feed, ventilator and/chest compression, central venous catheter, vasopressor and DC shock if needed Laboratory Results 03/16/23 10:30: Sodium 136, Potassium 3.4 L, Chloride 101, Carbon Dioxide 32.0, Anion Gap 3 L, BUN 14, Creatinine 1.37 H, Estim Creat Clear Calc 62.93, Est GFR (MDRD) Af Amer 67, Est GFR (MDRD) Non-Af 56 L, BUN/Creatinine Ratio 10.2, Glucose 140 H, Calcium 9.2, Phosphorus 2.5, Magnesium 2.3, Total Bilirubin 0.80,Direct Bilirubin 0.29, AST 13 L, ALT 8 L, Alkaline Phosphatase 77, Total Protein7.1, Albumin 3.6, Globulin 3.5, Lipase 15 03/16/23 11:30: Stool Calprotectin Pending, Stl Giardia Antigen Pending 03/16/23 13:35: Lactic Acid 1.1 03/16/23 14:10: Urine Color Yellow, Urine Clarity Clear, Urine pH 6.0, Ur Specific [place] 1.015, Urine Protein 15 H, Urine Glucose (UA) Normal, Urine Ketones 5 H, Urine Occult Blood 10 H, Urine Nitrite Negative, Urine Bilirubin Negative, Urine Urobilinogen Normal, Ur Leukocyte Esterase 25 H, Urine RBC 0 SEEN, Urine WBC 0 SEEN, Ur Squamous Epith Cells 0-5 SEEN, Urine Bacteria 0 SEEN,Urine Mucus 1+ 03/17/23 05:51: WBC 5.9, RBC 4.37 L, Hgb 13.5, Hct 41.6, MCV 95.2 H, MCH 30.9, MCHC 32.5, RDW Std Deviation 46.7 H, RDW Coeff of Nick 13.3, Plt Count 143 L, MPV12.1 H, Immature Gran % (Auto) 0.200, Neut % (Auto) 69.9, Lymph % (Auto) 20.4, Sol[place] % (Auto) 7.8, Eos % (Auto) 1.2, Baso % (Auto) 0.5, Absolute Neuts (auto) 4.1, Absolute Lymphs (auto) 1.20, Nucleated RBC % 0, Sodium 139, Potassium 3.8, Chloride 109 H, Carbon Dioxide 28.0, Anion Gap 2 L, BUN 9, Creatinine 1.11, Estim Creat Clear Calc 78.30, Est GFR (MDRD) Af Amer 86,Est GFR (MDRD) Non-Af 71, BUN/Creatinine Ratio 8.1 L, Glucose 98, Calcium 9.0, TSH 0.46 Clinical Impression(s) from Imaging Studies Chest X-Ray 03/16/23 10:24 IMPRESSION: Mild bibasilar atelectasis or pneumonia. Abdomen/Pelvis CT 03/16/23 11:07 IMPRESSION: Mild enteritis with mild fluid distention, wall thickening, and mesenteric edema of distal small bowel. Colonic diverticulosis without acute diverticulitis. Other chronic findings as above. Chest CTA 03/16/23 11:07 IMPRESSION: No evidence of pulmonary embolism. Mild left lower lobe pneumonia. Mild right lower lobe atelectasis. Charges/Coding Visit Charges Inpatient E&M: 94195 Subs Hosp L2 03/17/23 1158 <Electronically signed by Delfin Russell MD> Cosigner Signature (if applicable): CC: ~ Signed [facility] Work Phone: 1(196) 450-825201-28-2024 Discharge summary Author Moses Grady [facility] March 16, 2023 10:55pm Note Date/Time March 16, 2023 1 0:23am [facility] Medical Records Department [address] [place] [address] Emergency Department Summary 03/16/23 MR#: [id number] Acct: [id number] Name: FREDDIE COLE Rep #:[id number] : 1960 62 From: Moses Falcon PCP: Dr. Biju Lobo, DO Status:ADM IN Location: [place] [address] HPI History of Present Illness Chief Complaint: Diarrhea Informant: patient and spouse/S.O. Narrative Narrative: 62-year-old male presenting to the emergency room for diarrhea only at night forabout 10 days. Patient states that during the day he does not have any bowel movements. At night he awakens with bloating and cramping states he will have 5-6 episodes of diarrhea. 1 month ago he states he was treated for an asthma exacerbation with an antibiotic and some prednisone. He does not know what antibiotic he was on (per chart review I see that he was prescribed [id number] January 2023). He states he saw pulmonology about 4 days ago. He was treated for oral thrush. He states that since starting that medicine his dry mouth seems to be better. Patient notes no fever. He denies any history of colitis diverticulitis food intolerances. He gets most of his care through [facility] cardiology and urology is through at [facility]. Hedenies any other new medications. He denies any change in medication dosing.. states she is feeling fine. He does not wear home oxygen. He does not feel short of breath. No change in cough. [facility] Medical History (Updated 03/16/23 @ 13:[address] Moses Grady, ) Abnormal CT of the chest Acute deep vein thrombosis of lower extremity Alcohol use Arthritis Bilateral hearing loss DVT (deep venous thrombosis) Gastric reflux High cholesterol History of nuclear stress test Hypothyroidism MARYJO (obstructive sleep apnea) Smoker Wears glasses Home Medications omeprazole 40 mg capsule,delayed release 40 mg PO BID #120 caps 11/18/20 [Rx Last Taken 11/23/20] albuterol sulfate 90 mcg/actuation aerosol inhaler 2 puff inhalation Q6H PRN shortness of breath or wheezing #6.7 grams 11/23/20 [Rx Last Taken Unknown] levothyroxine 150 mcg tablet (Synthroid) 150 mcg PO DAILY 01/13/21 [History Last Taken Unknown] aspirin 81 mg chewable tablet (Luis Alberto Chewable Low Dose Aspirin) 81 mg PO DAILY 01/24/22 [History Last Taken Unknown] clopidogrel 75 mg tablet 75 mg PO DAILY 01/24/22 [History Last Taken Unknown] ezetimibe 10 mg tablet 10 mg PO DAILY 01/24/22 [History Last Taken Unknown] metoprolol succinate 25 mg tablet,extended release 24 hr 12.5 mg PO DAILY 01/24/22 [History Last Taken Unknown] rosuvastatin 5 mg tablet 5 mg PO DAILY 01/24/22 [History Last Taken Unknown] albuterol sulfate 2.5 mg/3 mL (0.083 %) solution for nebulization 2.5 mg inhalation Q4H PRN 05/17/22 [History Last Taken Unknown] tamsulosin 0.4 mg capsule 0.4 mg PO BID 05/17/22 [History Last Taken Unknown] furosemide 40 mg tablet (Lasix) 40 mg PO DAILY 06/04/22 [History Last Taken Unknown] isosorbide mononitrate 60 mg tablet,extended release 24 hr 60 mg PO DAILY 06/04/22 [History Last Taken Unknown] spironolactone 25 mg tablet 25 mg PO DAILY 06/04/22 [History Last Taken Unknown] Bilateral knee-high compression stockings (10-20) #2 ea 07/02/22 [Rx Last Taken Unknown] Handicap placard #1 ea 10/01/22 [Rx Last Taken Unknown] atropine 1 % eye drops See Rx Instructions buccal DAILY #10 mL 01/31/23 [Rx Last Taken Unknown] carbidopa 25 mg-levodopa 100 mg tablet 2 tab PO TID #540 tabs 01/31/23 [Rx Last Taken Unknown] budesonide-formoterol HFA 160 mcg-4.5 mcg/actuation aerosol inhaler (Symbicort) 2 puff inhalation BID #1 ea 02/12/23 [Rx Last Taken Unknown] nystatin 100,000 unit/mL oral suspension 5 ml mucous membrane TID #250 mL 03/12/23 [Rx Last Taken Unknown] Allergy/AdvReac Type Severity Reaction Status Date / Time vibegron [From Gemtesa] Allergy Severe Rash Verified 03/12/23 10:10 Family History Father COPD (chronic obstructive pulmonary disease) Emphysema lung Myocardial infarction Mother Parkinsons disease Surgical History H/O cardiac catheterization H/O knee surgery H/O thyroidectomy Hx of arthroscopy of knee Social History Smoking Status: Current some day smoker tobacco type: cigarettes Tobacco: How many years used: 45 second hand exposure: Yes alcohol intake: current alcohol intake frequency: holidays/special occasions only substance use type: does not use caffeine: Yes (daily) what type of physical activity do you participate in: walking seatbelt use: sometimes ROS ROS ED Constitutional Constitutional ED: Denies chills, fever(s) or weight loss Eyes Eyes: Denies change in vision or diplopia ENT ENT ED: Reports other Details: Dry mouth decreased appetite ; Denies ear pain, rhinorrhea or sore throat Cardiovascular Cardiovascular: Denies chest pain, orthopnea, palpitations or racing heartbeat Respiratory/Chest Respiratory/Chest: Denies cough, dyspnea or orthopnea Gastrointestinal Gastrointestinal: Reports diarrhea; Denies abdominal pain, nausea or vomiting Genitourinary Genitourinary ED: Denies dysuria, hematuria or urinary frequency Musculoskeletal Musculoskeletal: Denies arthralgias, back pain, myalgias or neck pain Integumentary Denies abscess or rash Neurologic Neurologic: Denies headache(s) or weakness Psychiatric Psychiatric: Denies anxiety, depression, suicidal ideation or suicidal thoughts Endocrine Endocrinology: Denies polydipsia, polyphagia or polyuria Allergic/Immunologic Allergic/Immunologic ED: Denies mouth swelling, tongue swelling or urticaria EXAM Physical Exam Const Vital Signs: 03/16/23 09:53 03/16/23 10:49 03/16/23 11:01 Temperature 97.2 F L Temperature Source Temporal Pulse Rate 85 Pulse Rate [Lying] 77 Pulse Rate [Sitting (for 1 minute prior to obtaining)] 86 Pulse Rate [Standing (for 1 minute prior to obtaining)] 101 H Respiratory Rate 16 Blood Pressure 95/74 Blood Pressure [Lying] 132/73 H Blood Pressure [Sitting (for 1 minute prior to obtaining)] 100/74 Blood Pressure [Standing (for 1 minute prior to obtaining)] 73/63 L Blood Pressure Mean 81 Blood Pressure Mean [Lying] 92 Blood Pressure Mean [Sitting (for 1 minute prior to obtaining)] 82 Blood Pressure Mean [Standing (for 1 minute prior to obtaining)] 66 Pulse Ox 90 92 Oxygen Delivery Method Room Air Nasal Cannula Oxygen Flow Rate (L/min) 2 03/16/23 11:12 03/16/23 12:47 Temperature Temperature Source Pulse Rate 89 80 Pulse Rate [Lying] Pulse Rate [Sitting (for 1 minute prior to obtaining)] Pulse Rate [Standing (for 1 minute prior to obtaining)] Respiratory Rate 22 H 16 Blood Pressure 116/88 H 109/80 Blood Pressure [Lying] Blood Pressure [Sitting (for 1 minute prior to obtaining)] Blood Pressure [Standing (for 1 minute prior to obtaining)] Blood Pressure Mean 97 89 Blood Pressure Mean [Lying] Blood Pressure Mean [Sitting (for 1 minute prior to obtaining)] Blood Pressure Mean [Standing (for 1 minute prior to obtaining)] Pulse Ox 94 98 Oxygen Delivery Method Nasal Cannula Nasal Cannula Oxygen Flow Rate (L/min) 2 2 Positive well nourished and well developed General Appearance ED: well developed HEENT Reports normocephalic, head/scalp atraumatic and moist mucous membranes Eyes PERRL and EOMs intact bilaterally Neck no lymphadenopathy, supple and no JVD Resp normal respiratory effort and clear to auscultation bilaterally Cardio regular rate, regular rhythm and no murmurs GI normal to inspection, nondistended, normoactive bowel sounds and non-tender Palpation: soft Back/Spine no CVA tenderness and normal ROM Extremity normal to inspection General Extremety ED: Negative for edema General Extremity: Negative for edema Neuro oriented x3 and CN's II-XII intact bilaterally Sensorium / Orientation: alert Motor Exam: strength 5/5 throughout Psych mental status grossly normal Mood & Affect: Negative for depressed or tearful Skin no rashes or lesions noted and no wounds MDM MDM MDM Narrative Medical decision making narrative: Basic blood work showed a white count of 6.6 hemoglobin 14.6 and platelet count of 158. BMP shows a creatinine 1.37 potassium 3.4. Troponin normal BNP 81.7. Liver enzymes normal. My independent interpretation of the chest x-ray is left lower lobe infiltrate versus atelectasis. CT of the abdomen pelvis demonstrateschanges consistent with an enteritis. CTA was obtained given the chest x-ray findings, hypoxia, and history of DVT. This demonstrates no pulmonary embolism. There are changes consistent with a left lower lobe infiltrate. Urine with Legionella and strep pneumonia was ordered. Patient is yet to be able to produce a specimen. He was orthostatic positive before IV fluids. I ordered Rocephin and azithromycin. Given that he is requiring supplemental oxygen the orthostatic hypotension the diarrhea and pneumonia plan will be admission. History & Record Review Discussion w/independent historian: Patient, Family and Significant other Additional record(s) reviewed:: Prior inpatient record, Prior outpatient record,Prior ED visit and Prior labs Lab Data Attestation: I reviewed the patient's lab results. Labs: Laboratory Results - last 24 hr 03/16/23 10:30 WBC 6.6 RBC 4.76 Hgb 14.6 Hct 43.9 MCV 92.2 MCH 30.7 MCHC 33.3 RDW Std Deviation 44.6 H RDW Coeff of Nick 13.2 Plt Count 158 MPV 11.5 Immature Gran % (Auto) 0.300 Neut % (Auto) 70.6 H Lymph % (Auto) 22.0 [place] % (Auto) 6.2 Eos % (Auto) 0.6 Baso % (Auto) 0.3 Absolute Neuts (auto) 4.7 Absolute Lymphs (auto) 1.46 Nucleated RBC % 0 Sodium 136 Potassium 3.4 L Chloride 101 Carbon Dioxide 32.0 Anion Gap 3 L BUN 14 Creatinine 1.37 H Estim Creat Clear Calc 62.93 Est GFR (MDRD) Af Amer 67 Est GFR (MDRD) Non-Af 56 L BUN/Creatinine Ratio 10.2 Glucose 140 H Calcium 9.2 Total Bilirubin 0.80 Direct Bilirubin 0.29 AST 13 L ALT 8 L Alkaline Phosphatase 77 Troponin I High Sens 39 B-Natriuretic Peptide 81.7 Total Protein 7.1 Albumin 3.6 Globulin 3.5 Lipase 15 Radiography Diagnostic Testing: Clinical Impression(s) from Imaging Studies Chest X-Ray 03/16/23 10:24 IMPRESSION: Mild bibasilar atelectasis or pneumonia. Electronically Signed: Valarie Lemos MD at 10:53 EST Reading Location ID and State: [facility] / [place] Tel , Service support , Abdomen/Pelvis CT 03/16/23 11:07 IMPRESSION: Mild enteritis with mild fluid distention, wall thickening, and mesenteric edema of distal small bowel. Colonic diverticulosis without acute diverticulitis. Other chronic findings as above. Electronically Signed: Valarie Lemos MD at 11:58 EST , Chest CTA 03/16/23 11:07 IMPRESSION: No evidence of pulmonary embolism. Mild left lower lobe pneumonia. Mild right lower lobe atelectasis. Electronically Signed: Valarie Lemos MD at 11:52 EST , EKG Initial EKG: Attestation: I personally reviewed and interpreted this EKG as follows: Comments: Sinus rhythm with a ventricular rate of 78 bpm. EKG suggestive of right atrial enlargement. PVCs noted. Management Discussion w/another healthcare provider: Hospitalist Discharge Plan Dx/Rx/DC Orders Clinical Impression: Pneumonia, Asthma, CAD (coronary artery disease), Orthostatic hypotension, Chronic diastolic (congestive) heart failure, Acute hypoxemic respiratory failure, Diarrhea Disposition Disposition: Acute Care Hospital [facility] What to do if you have Problems For any increased pain, shortness of breath, bleeding, nausea or vomiting, chestpain, or any unexpected problems, contact your Primary Care Provider. Call [facility] ([phone]) or report to the closest Emergency Room. Call 911 if necessary. 03/16/23 0100 <Electronically signed by Moses Grady DO> Cosigner Signature (if applicable): CC: Dr. Biju Lobo DO ~ Signed [facility] Work Phone: 1(511) 990-915401-27-2024 Consult note Author Ravinder Friend [facility] March 16, 2023 4:50pm Note Date/Time March 16, 2023 4 :36pm [facility] Medical Records Department [address] [place] [address] Consultation - GI 03/16/23 1633 MR#: [id number] Acct: [id number] Name: FREDDIE COLE Rep #:[id number] : 1960 62 From: Ravinder Friend DO PCP: Dr. Biju Lobo, DO Status:ADM IN Location: [place] [address]-1 HPI Consult Data Date of Consult: 03/16/23 HPI Narrative Reason for Consultation: Diarrhea HPI Narrative: FREDDIE COLE, is a 62 M who presents to the ED with several days of worsening diarrhea. Patient says for the last 10 days he has been waking up in the middleof the night with worsening abdominal pain, cramping, worsening reflux and persistent diarrhea with fecal incontinence. Patient states that during the day he does not have any bowel movements. At night he awakens with bloating and cramping states he will have 5-6 episodes of diarrhea. 1 month ago he states he was treated for an asthma exacerbation with an antibiotic and some prednisone. He states he saw pulmonology about 5 days ago. He was treated for oral thrush with nystatin swish and swallow. He states that since starting that medicine his dry mouth seems to be better. Patient notes no fever. Laboratory analysis in the ED did not show any signs of severe abnormality. He was afebrile and on toxic in the emergency room. CT scan of the abdomen pelvis displayed: Mild enteritis with mild fluid distention, wall thickening, and mesenteric edema of distal small bowel. Colonicdiverticulosis without acute diverticulitis. [facility] Medical History Abnormal CT of the chest Acute deep vein thrombosis of lower extremity Alcohol use Arthritis Bilateral hearing loss DVT (deep venous thrombosis) Gastric reflux High cholesterol History of nuclear stress test Hypothyroidism MARYJO (obstructive sleep apnea) Smoker Wears glasses Home Medications omeprazole 40 mg capsule,delayed release 40 mg PO BID gerd #120 caps 11/18/20 [Rx Last Taken 11/23/20] albuterol sulfate 90 mcg/actuation aerosol inhaler 2 puff inhalation Q6H PRN shortness of breath or wheezing #6.7 grams 11/23/20 [Rx Last Taken Unknown] levothyroxine 150 mcg tablet (Synthroid) 150 mcg PO DAILY thyroid 01/13/21 [History Last Taken Unknown] aspirin 81 mg chewable tablet (Luis Alberto Chewable Low Dose Aspirin) 81 mg PO DAILY heart health 01/24/22 [History Last Taken Unknown] clopidogrel 75 mg tablet 75 mg PO DAILY anit platelet 01/24/22 [History Last Taken Unknown] ezetimibe 10 mg tablet 10 mg PO DAILY as prescribed 01/24/22 [History Last Taken Unknown] metoprolol succinate 25 mg tablet,extended release 24 hr 12.5 mg PO DAILY bp 01/24/22 [History Last Taken Unknown] rosuvastatin 5 mg tablet 5 mg PO DAILY cholesterol 01/24/22 [History Last Taken Unknown] tamsulosin 0.4 mg capsule 0.4 mg PO BID prostate 05/17/22 [History Last Taken Unknown] furosemide 40 mg tablet (Lasix) 40 mg PO DAILY diuretic 06/04/22 [History Last Taken Unknown] isosorbide mononitrate 60 mg tablet,extended release 24 hr 60 mg PO DAILY heart 06/04/22 [History Last Taken Unknown] spironolactone 25 mg tablet 25 mg PO DAILY diuretic 06/04/22 [History Last Taken Unknown] Bilateral knee-high compression stockings (10-20) #2 ea 07/02/22 [Rx Last Taken Unknown] Handicap placard #1 ea 10/01/22 [Rx Last Taken Unknown] atropine 1 % eye drops See Rx Instructions buccal DAILY eyes #10 mL 01/31/23 [Rx Last Taken Unknown] carbidopa 25 mg-levodopa 100 mg tablet 2 tab PO TID parkinsons #540 tabs 01/31/23 [Rx Last Taken Unknown] budesonide-formoterol HFA 160 mcg-4.5 mcg/actuation aerosol inhaler (Symbicort) 2 puff inhalation BID as directed #1 ea 02/12/23 [Rx Last Taken Unknown] Allergy/AdvReac Type Severity Reaction Status Date / Time vibegron [From Gemtesa] Allergy Severe Rash Verified 03/12/23 10:10 Family History Father COPD (chronic obstructive pulmonary disease) Emphysema lung Myocardial infarction Mother Parkinsons disease Surgical History H/O cardiac catheterization H/O knee surgery H/O thyroidectomy Hx of arthroscopy of knee Social History Smoking Status: Current some day smoker tobacco type: cigarettes Tobacco: How many years used: 45 second hand exposure: Yes alcohol intake: current alcohol intake frequency: holidays/special occasions only substance use type: does not use caffeine: Yes (daily) what type of physical activity do you participate in: walking seatbelt use: sometimes ROS ROS Narrative Constitutional: Reports fatigue and weakness. No fever. HEENT: Reports systems reviewed and no addt'l complaints, except as documented Respiratory/Chest: History of chronic wheezing and history. Chronic stridor. No acute shortness of breath or respiratory distress CVS: No chest pain pressure or tightness. Gastrointestinal: As described in HPI. Denies coffee ground emesis, hematemesisor vomiting Genitourinary: Urine retention in ED. BPH. Denies burning urination or new urinary tract symptoms Musculoskeletal: Denies acute joint pain or limited range of motion. No acute injury Neurologic: Denies seizure-like symptoms. skin: No ulcer. No rash Endocrinology: Reports systems reviewed and no addt'l complaints, except as documented Hematologic/Lymphatic: Reports systems reviewed and no addt'l complaints, exceptas documented Rest 14 ROS are negative except as mentioned in HPI Physical Exam Narrative General: Alert, Oriented x3, Cooperative HEENT: Atraumatic, PERRLA, EOMI, Normocephalic Oral: Oral mucosa dry. No Gingival or Mucosal Lesions/ Ulcerations Neck: Supple, No JVD, Negative Carotid Bruits Chest wall/Lungs: Air entry diminished in bilateral lung bases. Stridor/wheezing, chronic. No distal airways crepitation/rales Cardiovascular: Regular rate, Regular Rhythm, Normal S1, Normal S2, No M/G/R Abdomen: Soft, gaseous distention. No acute/ rebound tenderness. Bowel sounds sluggish. No palpable mass. : Acute retention urine required straight cath about more than 500 mL clear urine drained. No dysuria. No renal angle tenderness. No suprapubic tenderness. Extremities: No edema, Capillary Refill Less than 3 Seconds Skin: No rashes, No breakdown Musculoskeletal: No Tenderness to Palpation of Joints or Extremities Neurological: Cranial nerves II-XII grossly intact, DTR 2+/4. No acute focal neurological deficit. Psych/Mental Status: Flat affect. Lab / Micro Data 03/16/23 10:30 03/16/23 10:30 Labs: Laboratory Results - last 24 hr 03/16/23 10:30: WBC 6.6, RBC 4.76, Hgb 14.6, Hct 43.9, MCV 92.2, MCH 30.7, MCHC 33.3, RDW Std Deviation 44.6 H, RDW Coeff of Nick 13.2, Plt Count 158, MPV 11.5, Immature Gran % (Auto) 0.300, Neut % (Auto) 70.6 H, Lymph % (Auto) 22.0, Sol[place] % (Auto) 6.2, Eos % (Auto) 0.6, Baso % (Auto) 0.3, Absolute Neuts (auto) 4.7, Absolute Lymphs (auto) 1.46, Nucleated RBC % 0, Sodium 136, Potassium 3.4 L, Chloride 101, Carbon Dioxide 32.0, Anion Gap 3 L, BUN 14, Creatinine 1.37 H, Estim Creat Clear Calc 62.93, Est GFR (MDRD) Af Amer 67, Est GFR (MDRD) Non-Af 56 L, BUN/Creatinine Ratio 10.2, Glucose 140 H, Calcium 9.2, Phosphorus 2.5, Magnesium 2.3, Total Bilirubin 0.80, Direct Bilirubin 0.29, AST 13 L, ALT 8 L, Alkaline Phosphatase 77, Troponin I High Sens 39, B-Natriuretic Peptide 81.7, Total Protein 7.1, Albumin 3.6, Globulin 3.5, Lipase 15 03/16/23 13:35: Lactic Acid 1.1 03/16/23 14:10: Urine Color Yellow, Urine Clarity Clear, Urine pH 6.0, Ur Specific [place] 1.015, Urine Protein 15 H, Urine Glucose (UA) Normal, Urine Ketones 5 H, Urine Occult Blood 10 H, Urine Nitrite Negative, Urine Bilirubin Negative, Urine Urobilinogen Normal, Ur Leukocyte Esterase 25 H, Urine RBC 0 SEEN, Urine WBC 0 SEEN, Ur Squamous Epith Cells 0-5 SEEN, Urine Bacteria 0 SEEN,Urine Mucus 1+ Micro: Microbiology 03/16/23 14:10 Urine, Clean Catch Streptococcus pneumoniae Antigen (M - Final 03/16/23 14:10 Urine, Clean Catch Legionella Antigen - Final Imaging Radiology Impression Chest X-Ray 03/16/23 10:24 IMPRESSION: Mild bibasilar atelectasis or pneumonia. Electronically Signed: Valarie Lemos MD at 10:53 EST , Abdomen/Pelvis CT 03/16/23 11:07 IMPRESSION: Mild enteritis with mild fluid distention, wall thickening, and mesenteric edema of distal small bowel. Colonic diverticulosis without acute diverticulitis. Other chronic findings as above. Electronically Signed: Valarie Lemos MD at 11:58 EST , Chest CTA 03/16/23 11:07 IMPRESSION: No evidence of pulmonary embolism. Mild left lower lobe pneumonia. Mild right lower lobe atelectasis. Electronically Signed: Valarie eLmos MD at 11:52 EST , Assessment & Plan Assessment/Plan (1) Diarrhea: QUALIFIERS: Diarrhea type: unspecified type Qualified Code(s): R19.7 - Diarrhea, unspecified PLAN: Plan This is a 62-year-old gentleman being admitted for unexplained diarrhea and abdominal cramps. Agree with acute diarrhea and abdominal cramps possible distal small bowel inflammation as likely an infectious etiology. Ileitis, defined as inflammation of the ileum, is classically caused by Crohn?s disease. However, a wide variety of diseases may be associated with ileitis. These include infectious diseases, spondyloarthropathies, vasculitides, ischemia, neoplasms, drug-related, eosinophilic enteritis, sarcoidosis, amyloidosis, and avariety of other conditions. Typically distal small bowel inflammation is associated with a chronic diarrheaand proximal along with mid small bowel infections are typically associated withan acute or subacute diarrhea. We will wait stool cultures and C. difficile testing. He will likely need a upper or lower endoscopy to evaluate his proximal and distal small bowel to lookfor signs of vasculitides, atypical sprue disease, inflammatory bowel disease. I will also send autoimmune labs, IgG levels, protein electrophoresis, ESR, CRP and IBD SGI. Charges/Coding Visit Charges Inpatient E&M: 71691 Init Hosp L3 03/16/23 1650 <Electronically signed by Ravinder Friend DO> Cosigner Signature (if applicable): CC: Dr. Biju Lobo, ~ Signed [facility] Work Phone: 1(476) 943-298901-27-2024 History and physical note Author Delfin Russell [facility] March 16, 2023 2:54pm Note Date/Time March 16, 2023 1 :49pm [facility] Medical Records Department [address] [place] [address] H&P Exam - Hospitalist 03/16/23 1347 MR#: [id number] Acct: [id number] Name: FREDDIE COLE Rep #:[id number] : 1960 62 From: Delfin Dyer PCP: Dr. Biju Lobo DO Status:ADM IN Location: [facility] [place] AN[facility]-7 HPI - General General Date of Admission: 03/16/23 Date of Service: 03/16/23 Chief Complaint: Nocturnal diarrhea for about 10 days. Abdominal cramps 10 days HPI Narrative FREDDIE COLE, is a 62 M With no significant history of chronic diarrhea or inflammatory bowel disease came to ED with average 4-5 liquid bowel movement forlast 10 days. He denies obvious blood or black stool or hematochezia. He has nausea but denies vomiting. He feels abdominal distention and abdominal pain/cramps started in mid abdomen and became generalized. No fever or chills. He denies any known precipitating factor like food poisoning/camping or outside travel. He had Z-Yayo and prednisone tapering dose given by Dr. Nayak for history of asthma. He also has known chronic stridor/wheezing from the throat. He feels that sometimes it goes into spasm and makes sound and feels scary and choking but does not have esophageal dysphagia. In ED, vitals were in acceptable range. No hypoxia or tachypnea. CT abdomen with IV contrast individually reviewed. Labs and imaging discussed in assessment plan. [facility] Medical History Abnormal CT of the chest Acute deep vein thrombosis of lower extremity Alcohol use Arthritis Bilateral hearing loss DVT (deep venous thrombosis) Gastric reflux High cholesterol History of nuclear stress test Hypothyroidism MARYJO (obstructive sleep apnea) Smoker Wears glasses Home Medications omeprazole 40 mg capsule,delayed release 40 mg PO BID gerd #120 caps 11/18/20 [Rx Last Taken 11/23/20] albuterol sulfate 90 mcg/actuation aerosol inhaler 2 puff inhalation Q6H PRN shortness of breath or wheezing #6.7 grams 11/23/20 [Rx Last Taken Unknown] levothyroxine 150 mcg tablet (Synthroid) 150 mcg PO DAILY thyroid 01/13/21 [History Last Taken Unknown] aspirin 81 mg chewable tablet (Luis Alberto Chewable Low Dose Aspirin) 81 mg PO DAILY heart health 01/24/22 [History Last Taken Unknown] clopidogrel 75 mg tablet 75 mg PO DAILY anit platelet 01/24/22 [History Last Taken Unknown] ezetimibe 10 mg tablet 10 mg PO DAILY as prescribed 01/24/22 [History Last Taken Unknown] metoprolol succinate 25 mg tablet,extended release 24 hr 12.5 mg PO DAILY bp 01/24/22 [History Last Taken Unknown] rosuvastatin 5 mg tablet 5 mg PO DAILY cholesterol 01/24/22 [History Last Taken Unknown] tamsulosin 0.4 mg capsule 0.4 mg PO BID prostate 05/17/22 [History Last Taken Unknown] furosemide 40 mg tablet (Lasix) 40 mg PO DAILY diuretic 06/04/22 [History Last Taken Unknown] isosorbide mononitrate 60 mg tablet,extended release 24 hr 60 mg PO DAILY heart 06/04/22 [History Last Taken Unknown] spironolactone 25 mg tablet 25 mg PO DAILY diuretic 06/04/22 [History Last Taken Unknown] Bilateral knee-high compression stockings (10-20) #2 ea 07/02/22 [Rx Last Taken Unknown] Handicap placard #1 ea 10/01/22 [Rx Last Taken Unknown] atropine 1 % eye drops See Rx Instructions buccal DAILY eyes #10 mL 01/31/23 [Rx Last Taken Unknown] carbidopa 25 mg-levodopa 100 mg tablet 2 tab PO TID parkinsons #540 tabs 01/31/23 [Rx Last Taken Unknown] budesonide-formoterol HFA 160 mcg-4.5 mcg/actuation aerosol inhaler (Symbicort) 2 puff inhalation BID as directed #1 ea 02/12/23 [Rx Last Taken Unknown] Allergy/AdvReac Type Severity Reaction Status Date / Time vibegron [From Gemtesa] Allergy Severe Rash Verified 03/12/23 10:10 Family History Father COPD (chronic obstructive pulmonary disease) Emphysema lung Myocardial infarction Mother Parkinsons disease Surgical History H/O cardiac catheterization H/O knee surgery H/O thyroidectomy Hx of arthroscopy of knee Social History Smoking Status: Current some day smoker tobacco type: cigarettes Tobacco: How many years used: 45 second hand exposure: Yes alcohol intake: current alcohol intake frequency: holidays/special occasions only substance use type: does not use caffeine: Yes (daily) what type of physical activity do you participate in: walking seatbelt use: sometimes ROS ROS Narrative Constitutional: Reports fatigue and weakness. No fever. HEENT: Reports systems reviewed and no addt'l complaints, except as documented Respiratory/Chest: History of chronic wheezing and history. Chronic stridor. No acute shortness of breath or respiratory distress CVS: No chest pain pressure or tightness. Gastrointestinal: As described in HPI. Denies coffee ground emesis, hematemesisor vomiting Genitourinary: Urine retention in ED. BPH. Denies burning urination or new urinary tract symptoms Musculoskeletal: Denies acute joint pain or limited range of motion. No acute injury Neurologic: Denies seizure-like symptoms. skin: No ulcer. No rash Endocrinology: Reports systems reviewed and no addt'l complaints, except as documented Hematologic/Lymphatic: Reports systems reviewed and no addt'l complaints, exceptas documented Rest 14 ROS are negative except as mentioned in HPI Vital Signs Vital Signs Vital Signs: 03/16/23 09:53 03/16/23 10:49 03/16/23 11:01 Temperature 97.2 F L Temperature Source Temporal Pulse Rate 85 Pulse Rate [Lying] 77 Pulse Rate [Sitting (for 1 minute prior to obtaining)] 86 Pulse Rate [Standing (for 1 minute prior to obtaining)] 101 H Respiratory Rate 16 Blood Pressure 95/74 Blood Pressure [Lying] 132/73 H Blood Pressure [Sitting (for 1 minute prior to obtaining)] 100/74 Blood Pressure [Standing (for 1 minute prior to obtaining)] 73/63 L Blood Pressure Mean 81 Blood Pressure Mean [Lying] 92 Blood Pressure Mean [Sitting (for 1 minute prior to obtaining)] 82 Blood Pressure Mean [Standing (for 1 minute prior to obtaining)] 66 Pulse Ox 90 92 Oxygen Delivery Method Room Air Nasal Cannula Oxygen Flow Rate (L/min) 2 03/16/23 11:12 03/16/23 12:47 Temperature Temperature Source Pulse Rate 89 80 Pulse Rate [Lying] Pulse Rate [Sitting (for 1 minute prior to obtaining)] Pulse Rate [Standing (for 1 minute prior to obtaining)] Respiratory Rate 22 H 16 Blood Pressure 116/88 H 109/80 Blood Pressure [Lying] Blood Pressure [Sitting (for 1 minute prior to obtaining)] Blood Pressure [Standing (for 1 minute prior to obtaining)] Blood Pressure Mean 97 89 Blood Pressure Mean [Lying] Blood Pressure Mean [Sitting (for 1 minute prior to obtaining)] Blood Pressure Mean [Standing (for 1 minute prior to obtaining)] Pulse Ox 94 98 Oxygen Delivery Method Nasal Cannula Nasal Cannula Oxygen Flow Rate (L/min) 2 2 Weight Weight: 216 lb 6.4 oz Body Mass Index (BMI) 31.9 Physical Exam Narrative General: Alert, Oriented x3, Cooperative HEENT: Atraumatic, PERRLA, EOMI, Normocephalic Oral: Oral mucosa dry. No Gingival or Mucosal Lesions/ Ulcerations Neck: Supple, No JVD, Negative Carotid Bruits Chest wall/Lungs: Air entry diminished in bilateral lung bases. Stridor/wheezing, chronic. No distal airways crepitation/rales Cardiovascular: Regular rate, Regular Rhythm, Normal S1, Normal S2, No M/G/R Abdomen: Soft, gaseous distention. No acute/ rebound tenderness. Bowel sounds sluggish. No palpable mass. : Acute retention urine required straight cath about more than 500 mL clear urine drained. No dysuria. No renal angle tenderness. No suprapubic tenderness. Extremities: No edema, Capillary Refill Less than 3 Seconds Skin: No rashes, No breakdown Musculoskeletal: No Tenderness to Palpation of Joints or Extremities Neurological: Cranial nerves II-XII grossly intact, DTR 2+/4. No acute focal neurological deficit. Psych/Mental Status: Flat affect. Results Lab / Micro Data 03/16/23 10:30 03/16/23 10:30 Labs: Laboratory Results - last 24 hr 03/16/23 10:30: WBC 6.6, RBC 4.76, Hgb 14.6, Hct 43.9, MCV 92.2, MCH 30.7, MCHC 33.3, RDW Std Deviation 44.6 H, RDW Coeff of Nick 13.2, Plt Count 158, MPV 11.5, Immature Gran % (Auto) 0.300, Neut % (Auto) 70.6 H, Lymph % (Auto) 22.0, [place] % (Auto) 6.2, Eos % (Auto) 0.6, Baso % (Auto) 0.3, Absolute Neuts (auto) 4.7, Absolute Lymphs (auto) 1.46, Nucleated RBC % 0, Sodium 136, Potassium 3.4 L, Chloride 101, Carbon Dioxide 32.0, Anion Gap 3 L, BUN 14, Creatinine 1.37 H, Estim Creat Clear Calc 62.93, Est GFR (MDRD) Af Amer 67, Est GFR (MDRD) Non-Af 56 L, BUN/Creatinine Ratio 10.2, Glucose 140 H, Calcium 9.2, Total Bilirubin 0.80, Direct Bilirubin 0.29, AST 13 L, ALT 8 L, Alkaline Phosphatase 77, Troponin I High Sens 39, B-Natriuretic Peptide 81.7, Total Protein 7.1, Albumin 3.6, Globulin 3.5, Lipase 15 Imaging Radiology Impression Chest X-Ray 03/16/23 10:24 IMPRESSION: Mild bibasilar atelectasis or pneumonia. Electronically Signed: Valarie Lemos MD at 10:53 EST Reading Location ID and State: [facility] / CT Tel , Service support , Abdomen/Pelvis CT 03/16/23 11:07 IMPRESSION: Mild enteritis with mild fluid distention, wall thickening, and mesenteric edema of distal small bowel. Colonic diverticulosis without acute diverticulitis. Other chronic findings as above. Electronically Signed: Valarie Lemos MD at 11:58 EST , Chest CTA 03/16/23 11:07 IMPRESSION: No evidence of pulmonary embolism. Mild left lower lobe pneumonia. Mild right lower lobe atelectasis. Electronically Signed: Valarie Lemos MD at 11:52 EST , Assessment & Plan Assessment/Plan (1) Diarrhea: QUALIFIERS: Diarrhea type: unspecified type Qualified Code(s): R19.7 - Diarrhea, unspecified PLAN: Plan This is a 62-year-old gentleman being admitted for lower tuner diarrhea and abdominal cramps for about 10 days. No fever. 1. Acute diarrhea and abdominal cramps possible small bowel inflammation/infectious cause, exact etiology unclear: Patient being admitted onMedSurg floor. Ministered IV fluid 1 L bolus and then 250 mill per hour then 125 mill per hour. Monitor intake and output. Stool studies including enteric pathogen, stool C. difficile, leukocytes, occult blood and calprotectin ordered.CT abdomen with IV contrast images individually reviewed and agree with the distal small bowel thickening, fluid distention with mesenteric edema. Colonic diverticulosis without diverticulitis. 4.6 cm right sinus and cortical renal cyst. Discussed with the weight loss counselor Dr. Beauchamp. Consult requested. Possible differentials were discussed with the patient's and daughter. 2. Chronic pulmonary conditions: Persistent asthma, severe with no exacerbationand obstructive sleep apnea. Patient follows in pulmonary clinic with Dr. Nayak and aKren Lora, EPIFANIO. Was recommended low-salt diet, AutoPap and weight loss and inhaler Spiriva. Continue CPAP at night. Bronchodilator DuoNebas needed for wheezing/airway spasm. Monitor pulse ox. Patient had spirometry/PFT in August 2022 which was reported unreliable result with inconsistent and did not meet criteria for acceptability and reproducibility. Plethysmography showed mild restriction, TLC 76% predicted, FRC 69%, RV/TLC 94%,VC 69%. No evidence of hyperinflation. DLCO 81% predicted. 3. Chronic HFpEF/diastolic heart failure and right carotid stenosis: I do not see any echo report in our system but patient might had outside. Does not need acute echo studies. Patient has moderate right extracranial ICA and normal leftICA. Patient is on baby aspirin and Plavix. Patient on diuretic Lasix, spironolactone, rosuvastatin, isosorbide mononitrate, and Zetia 4. Cricopharyngeal dysphagia: Patient has history of recurrent trouble swallowing and has seen Dr. Beauchamp in the office in November 2020. Patient had extensive evaluation including CT of the chest, CT of the neck which did not show any gross abnormality. History of Graves' disease status post thyroidectomy. On thyroid replacement treatment. No history of GERD. He was referred to Higher tertiary care outpatient. EGD on 11/23/2020 shows LA grade B reflux esophagitis, normal stomach and D2. He also had dilatation of cricopharyngeal dysphagia. Patient had modified barium swallow which was reported mild oropharyngeal phase dysphagia. There was also concern was a spasmof vocal cords. Patient was referred to pulmonology and ENT. 5. Parkinson disease: Patient on carbidopa levodopa.He is also on carbidopa levodopa.He follows neurologist Dr. Hernandez. DVT prophylaxis, moderate risk: Enoxaparin 40 mill subcu daily. Discontinue ifplatelet count drops less than 50,000 or hemoglobin less than 8 g% Living will/advanced directive/end of life care: Patient does have living will or advanced directive. His is power of assistant district attorney for health. After discussion of benefits/risks procedures involved with full code, DNR CC arrest and DNR CC, the patient opted for full code. Patient does want artificial life support including intubation, tube feed, ventilator and/chest compression, central venous catheter, vasopressor and DC shock if needed Total time spent in [id number]-wsjn encounter in discussion of advanced directive 17 minutes. Laboratory Results 03/16/23 10:30: WBC 6.6, RBC 4.76, Hgb 14.6, Hct 43.9, MCV 92.2, MCH 30.7, MCHC 33.3, RDW Std Deviation 44.6 H, RDW Coeff of Nick 13.2, Plt Count 158, MPV 11.5, Immature Gran % (Auto) 0.300, Neut % (Auto) 70.6 H, Lymph % (Auto) 22.0, Solano % (Auto) 6.2, Eos % (Auto) 0.6, Baso % (Auto) 0.3, Absolute Neuts (auto) 4.7, Absolute Lymphs (auto) 1.46, Nucleated RBC % 0 Sodium 136, Potassium 3.4 L, Chloride 101, Carbon Dioxide 32.0, Anion Gap 3 L, BUN 14, Creatinine 1.37 H, Estim Creat Clear Calc 62.93, Est GFR (MDRD) Af Amer 67, Est GFR (MDRD) Non-Af 56 L, BUN/Creatinine Ratio 10.2, Glucose 140 H, Calcium 9.2, Total Bilirubin 0.80, Direct Bilirubin 0.29, AST 13 L, ALT 8 L, Alkaline Phosphatase 77, Troponin I High Sens 39, B-Natriuretic Peptide 81.7, Total Protein 7.1, Albumin 3.6, Globulin 3.5, Lipase 15 03/16/23 13:35: Lactic Acid Pending Clinical Impression(s) from Imaging Studies Chest X-Ray 03/16/23 10:24 IMPRESSION: Mild bibasilar atelectasis or pneumonia. Abdomen/Pelvis CT 03/16/23 11:07 IMPRESSION: Mild enteritis with mild fluid distention, wall thickening, and mesenteric edema of distal small bowel. Colonic diverticulosis without acute diverticulitis. Other chronic findings as above. Chest CTA 03/16/23 11:07 IMPRESSION: No evidence of pulmonary embolism. Mild left lower lobe pneumonia. Mild right lower lobe atelectasis. Charges/Coding Visit Charges Inpatient E&M: 88827 Init Hosp L3 Procedures Hospitalists Procedures: 58350 Advncd Care Plan 30 Min 03/16/23 4666 <Electronically signed by Delfin Russell MD> Cosigner Signature (if applicable): CC: Dr. Biju Lobo DO; Dr. Delfin Russell MD~ Signed [facility] Work Phone: 1(871) 648-585808-08-2023 History of Present illness Narrative* 09/25/2022: Office visit * Patient is here for follow-up appointment. He is doing well since last appointment. Has some mild shortness of breath. He is being treated for parkinsonian's disorder and is on carbidopa levodopa. Hedenies lightheadedness dizziness or syncopal events. He is compliant with his meds. No major bleeding events. His vital signs initial blood pressure 115/73 heart rate of 67 his weight is 220 pounds. * 03/27/2022 * Patient is here for follow-up. He had a bout of flu and COVID in January 2022. Has been recovering. He still has some shortness of breath. She complains of increased lower extremity edema and abdominal fullness. No orthopnea or PND he has noticed. His vital signs initial blood pressure 103/67 heart rate of 64 satting 96% on room air. DP-Xfkyvssbao-Wue[address]cf [address] [place] Work Phone: 1([phone] 952-466407-14-2023 Procedure [facility] 08-24-2022 Procedure [facility]04-03-2023 Procedure note [facility]02-07-2023 History of Present illness Narrative* 03/27/2022: Office visit * Patient is here for follow-up. He had a bout of flu and COVID in January 2022. Has been recovering. He still has some shortness of breath. She complains of increased lower extremity edema and abdominal fullness. No orthopnea or PND he has noticed. His vital signs initial blood pressure 103/67 heart rate of 64 satting 96% on room air. * 11/14/2021 * This is a 61-year-old male past med history notable for CAD with recent drug- eluting stent to the RCA and moderate disease in LAD which is FFR negative [0.94], history of hypertension, hyperlipidemia, tobacco usage who has been having increased shortness of breath over last several months. He had ec hocardiograms were normal ejection fraction with grade 1 diastolic dysfunction. He had a recent stress test to rule out progression of LAD disease which showed no evidence of ischemia. He was noted to have weight gain as he was previously placed on prednisone for over 6 months for laryngeal spasms.States that taking Lasix helps with his symptoms. He has had recent PFTs which were mildly abnormal. He is scheduled to see pulmonology in the near future. He is not endorsing chest pain today. He was started on isosorbide mononitrate 30 mg. His vital signs initial blood pressure 100/63 heart rate of 87 satting 97% on room air. His weight is 223 pounds. AQ-Jqpdypiykg-Varxjk [address] [place] Work Phone: [phone] History of Present illness NarrativePatient is here for yearly f/u. Most recent PSA was 0.42 on 03/12. . Prior PSA waS 0.37 on 01/08. Chronic BPH sx are mild and stable. Some urgency and frequency. Denies dysuria. Denies hematuria. Nocturia x3-4. He is taking Flomax. He has failed Gemtesa and Myrbetriq in the past. ED is not an issue.He is taking Isosorbide. RC-Vdwkoeh-Kfwqrrt Work Phone: [phone] 573-355012-07-2022 History of Present illness Narrative* 61 year old male with PMH of asthma (positive methacholine), laryngeal spasm, former tobacco use, NSTEMI s/p RCA stent (2021) who presents to pulmonary clinic after a recent hospitalization for pneumonia. * Patient presented to the [facility] on 01/24 and was told that he had pneumonia, did not require hospitalization and was discharged home. He received levofloxacin and prednisone for a week. Patient reports that everyone at home was sick in the beginning of January. Symptoms are improving now. Shortness of breath and cough have improved over the last 1 week, however not at baseline. * Patient uses Symbicort twice daily along with albuterol nebulizer as needed. * PMH: Asthma, CAD s/p RCA stent, laryngospasm, BPH, HLD * PSH: knee surgery, thyroidectomy * FH: Father with emphysema * SH: Former tobacco user: 40 year history, quit April 2021, had previously smoked a pack per day, social etoh, no illicits. 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 * Methacholine Challenge test 01/08/22: * Positive test with 20% drop in FEV1(between 0.5-1mg) * PFT 11/01/2021: * No obstruction observed (FEV1/FVC Z score -1.18), normal TLC, +gas trapping, borderline reduced DLCO, flow volume loops suggest upper airway obstruction MG-Pulm Sleep-[facility] Sleep Work Phone: [phone] 100-665810-11-2022 History of Present illness Narrative* 61 yo M with PMH of laryngeal spasm, former tobacco use, NSTEMI s/p RCA stent (2021) who presents to pulmonary clinic for SOB and wheezing. * Since his RCA stent, pt denies any laryngeal [...] breathing. Denies chest pain, syncope. +Orthopnea, BLE edema. 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 [address] [place] Work Phone: [phone] 323-182510-10-2022 History of Present illness Narrative* 61 yo M with PMH of laryngeal spasm, former tobacco use, NSTEMI s/p RCA stent (2021) who presents to pulmonary clinic for SOB and wheezing. * Since last visit (11/27/21), states SOB/CAAL is stable. Underwent PSG, but RNs felt that he had increased work of breathing and didn't proceed with PSG as they felt it would be unsafe with his breathing; sent him to [facility] ED where he received albuterol breathing treatment. [...] test done prior to appointment today; positive results. 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 * Since his RCA stent, pt denies any laryngeal [...] breathing. Denies chest pain, syncope. +Orthopnea, BLE edema. 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 He had ec hocardiograms were normal ejection fraction with grade 1 diastolic dysfunction. He had a recent stress test to rule out progression of LAD disease which showed no evidence of ischemia. He was noted to have weight gain as he was previously placed on prednisone for over 6 months for laryngeal spasms.States that taking Lasix helps with his symptoms. He has had recent PFTs which were mildly abnormal. He is scheduled to see pulmonology in the near future. He is not endorsing chest pain today. He was started on isosorbide mononitrate 30 mg. His vital signs initial blood pressure 100/63 heart rate of 87 satting 97% on room air. His weight is 223 pounds. WQ-Ekoyyypfky-Crtfkn [address] [place] Work Phone: [phone] History of Present illness Narrative* 11/14/2021: Office visit * This is a 61-year-old male past med history notable for CAD with recent drug- eluting stent to the RCA and moderate disease in LAD which is FFR negative [0.94], history of hypertension, hyperlipidemia, tobacco usage who has been having increased shortness of breath over last several months. He had ec hocardiograms were normal ejection fraction with grade 1 diastolic dysfunction. He had a recent stress test to rule out progression of LAD disease which showed no evidence of ischemia. He was noted to have weight gain as he was previously placed on prednisone for over 6 months for laryngeal spasms.States that taking Lasix helps with his symptoms. He has had recent PFTs which were mildly abnormal. He is scheduled to see pulmonology in the near future. He is not endorsing chest pain today. He was started on isosorbide mononitrate 30 mg. His vital signs initial blood pressure 100/63 heart rate of 87 satting 97% on room air. His weight is 223 pounds. [facility] Work Phone: [phone]) 140-183608-24-2022 History of Present illness Narrative* 10/11/2021: Mr Cole is here for a second acute visit for complaints of feeling fatigues, weak and very short of breath. This is progressively getting worse since his cardiac catheterization. His weight is up 4 lbs since I saw him last. His BP and HR are well controlled and his pulse ox is 95% on room air. * 09/12/2021: Mr Cole is here for an acute visit for complaints of feeling weak, lethargic and very short of breath he denies any complaints of chest pain, dizziness, syncope or lower extremity edema,He did not under go cardiac rehab as prescribed. He is not active and feels he has no energy to do a nything since under going his PCI. * June 23, 2021: Mr Cole is a 66 year old male with PMH of laryngeal spasms, Graves disease S/P thyroidectomy, elevated IgE levels, nicotine dependence, here following hospitalization for acute on chronic diastolic heart failure and coronary artery disease. * To work up the shortness of breath and confirm/ rule out CHF, he underwent * echo. Echo showed normal LV systolic function with 55-60% EF and no LV * hypertrophy. Doppler showed impaired relaxation pattern of LV diastolic * filling. A CT coronary calcium screen due to the elevated troponins showed near * complete occlusion of the RCA in the midportion, nonobstructive CAD involving * the LAD and LCX causing less than 50% stenosis, and total calcium score 225. * Based on these findings, patient was taken to cardiac catheterization. Results * of his left heart cath showed moderate 40-50% proximal LAD stenosis, LVEDP 25 * mmHg end-expiration, 95% thrombotic appearing mid RCA stenosis (culprit for * NSTE-ACS presentation). A drug eluting stent was placed in the RCA. Given the * LVEDP of 25, he was further diuresed in the hospital and sent home with PRN * Lasix for weight gain with daily weight checks. * He was started on aspirin, high intensity atorvastatin, clopidogrel, ezetimibe, * and losartan. He will follow up with his PCP, Cardiology, and specialists * previously seen for layngeal spasms. * He is complaining of severe muscle pains since his cardiac catheterization that is preventing him from walking. The pain is sos severe that he is not able to sleep at night. (He was started on atorvastatin 80mg following his cath). FZ-Rifikrffbc-Lrm[address] [place] Work Phone: [phone]) [phone] History of Present illness Narrative* 09/12/2021: Mr Cole is here for an acute visit for complaints of feeling weak, lethargic and very short of breath he denies any complaints of chest pain, dizziness, syncope or lower extremity edema,He did not under go cardiac rehab as prescribed. He is not active and feels he has no energy to do a nything since under going his PCI. * June 23, 2021: Mr Cole is a 66 year old male with PMH of laryngeal spasms, Graves disease S/P thyroidectomy, elevated IgE levels, nicotine dependence, here following hospitalization for acute on chronic diastolic heart failure and coronary artery disease. * To work up the shortness of breath and confirm/ rule out CHF, he underwent * echo. Echo showed normal LV systolic function with 55-60% EF and no LV * hypertrophy. Doppler showed impaired relaxation pattern of LV diastolic * filling. A CT coronary calcium screen due to the elevated troponins showed near * complete occlusion of the RCA in the midportion, nonobstructive CAD involving * the LAD and LCX causing less than 50% stenosis, and total calcium score 225. * Based on these findings, patient was taken to cardiac catheterization. Results * of his left heart cath showed moderate 40-50% proximal LAD stenosis, LVEDP 25 * mmHg end-expiration, 95% thrombotic appearing mid RCA stenosis (culprit for * NSTE-ACS presentation). A drug eluting stent was placed in the RCA. Given the * LVEDP of 25, he was further diuresed in the hospital and sent home with PRN * Lasix for weight gain with daily weight checks. * He was started on aspirin, high intensity atorvastatin, clopidogrel, ezetimibe, * and losartan. He will follow up with his PCP, Cardiology, and specialists * previously seen for layngeal spasms. * He is complaining of severe muscle pains since his cardiac catheterization that is preventing him from walking. The pain is sos severe that he is not able to sleep at night. (He was started on atorvastatin 80mg following his cath). CG-Bbfpsawggr-Khfdpf [address] [place] Work Phone: [phone] Reason for visit Narrative* An interactive audio and video telecommunication system which permits real time communications between the patient (at the originating site) and provider (at the distant site) was utilized to providethis telehealth service. * Verbal consent was requested and obtained from FREDDIE COLE on this date, 04/05/2021 01:00 PM , for a telehealth visit. * Virtual Voice FUV, Adult * Reason for referral: SOB, laryngospasm * Rehab Dx: J38.3, R49.0, J38.5 IK-Pumikyxnc-Crvbnfd [address] Work Phone: [phone] History of Present illness Narrative* Interval history, 04/03/21: Since last visit, he has been doing well. He presents with his for today's visit. He states that he is seeing ENT and pulmonary. 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 He just finished a ntifungal therapy. He is decreased his prednisone from 20 mg daily to 15 mg daily about 9 days ago.He still having very mild laryngeal spasms. He [...] the episodes last more than a couple minutes. * He notes that he is can had continued shortness of breath since his RSV infection in January. He is going to schedule a CT scan for the lungs. He has also done phlebotomy for hematology since last visit. * Initial visit, 02-27-21: Mr. FREDDIE COLE presents for initial evaluation today. Referred by: Dr. Giovanni Cantu. He and his provide the following history: * Mr. Cole was referred by Dr. Cantu in Hematology for evaluation of angioedema. He states that the symptoms started 2 years ago. He states that he got a sensation of difficulty breathing. He denies throat tightness, but his has noticed associated cough and hoarseness. He has not had any ass ociated rash, pruritus, lip or tongue swelling. 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 It didn't occur [...] oxygen and symptoms relieved within minutes, and hewent right back to work. He has not received an epinephrine ever for his symptoms. He has gone to the ER in [place] a few times. He states that sometimes by the time he called EMS and they arrived, symptoms have already resolved spontaneously. He states that they have not seen swelling there to hisknowledge. He first saw GI, Dr. Beauchamp and had and EGD, and states that he had a a reaction and haddid have brief symptoms where swelling was associated right before the procedure, but they were able to continue and do the EGD. He saw ENT (Dr. Bobby Chavez) in [place] and had a rhinoscopy and didn't recall any abnormal findings. Was referred to a card scraper but never had an appointment scheduled. He has also seen Pulmonary, Dr. German Nayak and had PFT's and 6 minute walk performed 1 month ago. He is unaware of the results. * He is currently on prednisone which he has been on since November 2020. He states that he was on 20 mg of prednisone daily, and then he cut back to 15 mg, he felt like it made things worse. He restarted on 20 mg, but still had another episode on February 12 despite being on the prednisone. * Regarding his last episode on February 12: He states that he woke in the middle the night with difficulty breathing, sound of wheezing coming from his throat, cough and hoarseness. He states that he took an albuterol treatment which helped him cough more and breathe normally. The symptoms resolved in 5- 10 minutes. He notes that in general all of his episodes resolve within minutes. He has never had prolonged episodes. Sometimes episodes resolve just by sitting and calm breathing. Of note, states that he had an RSV infection that he got from his granddaughter a few weeks before this episode occurred he had been coughing the entire month of January. * His past medical history is significant for Graves' disease. He states that he had an extensive thyroid surgery years ago. He is now on Synthroid. * He notes that he started drooling more, this is unrelated to his throat episodes. The drooling seems to correlate from when he started taking prednisone. He denies taking any supplements. He stopped his statin. He takes Tylenol for pain. He used to take ibuprofen and Aleve, but he has not taken them in almost a year. * He notes that he has gained weight since starting prednisone, and has had a significant appetite since starting prednisone. * Denies any throat symptoms, difficulty breathing after the ingestion of beef or mammalian meat products. * In terms of evaluation to date, he has had normal C4, C1 esterase inhibitor quantitative and functional levels. He is undergoing further evaluation with genetics assays for C1INH, HK, FXII, plasminogen, angiopoietin, myoferlin, and heparan sulfate (HS)-glucosamine 3- O -sulfotransferase 6 as well as immunoblots for C1INH, HK, FXII, and PK. * Rhinitis: Denies history of environmental allergies, hayfever, rhinitis symptoms * Asthma: Denies history of asthma * Eczema: Diagnosed with eczema 15-20 years ago, flares when he gets hot. [place] 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 * Pertinent Allergy/Immunology family history: * No family history of angioedema * No family of asthma, allergies * Grave's disease in family * Mother had breathing issues but not diagnosed as asthma to their knowledge. Also has Parkinson's. RD-Tflyryfatr-Wdmhd [address] [place] Work Phone: [phone] History of Present illness Narrative* This is a 60 year old male previously seen by me on 03/07/2021 with a history of SOB, voice changes, and significant cough with no triggers seen. He was found to have MTD and laryngeal candidiasis. He was being worked up for angioedema by allergy. He was noted to have improvement in his symptoms. * He reports that he had an episode of wheezing yesterday. This has improved from last month. He has been working with [employer] on respiratory retraining. * Recall: 03/07/2021 FREDDIE COLE is a 60 year old male with SOB and concern for angioedema referred to me today by Dr. Kendrick from allergy/immunology. He had normal C4 and C1 esterace labs and also complains of voice changes and chronic cough in addition to SOB. He was seen by Dr. Chavez with toy per report. * He reports that he has episodes of breathlessness. These happen randomly. The last episode was 02/12/21 while sleeping. These episodes last for 10-15 minutes with wheezing. He uses an albuterol inhaler which manages these episodes. He denies LOC or syncopal episodes. He resumes his activities 30 min utes later. His voice is raspy that has worsened. Today, his voice sounds slightly raspy, per his report. * Denies fevers, chills, night sweats, nausea/vomiting, wt loss or hemoptysis. No complaints of otalgia. * Denies facial pain, pressure or headaches. * Denies chronic nasal congestion, stuffiness or postnasal drainage. * PMH: Reviewed EHR record/intake - pertinent Hx includes: BPH, ED, * PSHx: Reviewed. Includes: knee surgery x2, thyroid surgery in 1998. * Social: * Lives in: a farm * Tobacco: Current smoker * Denies other drug use. * FHx: reviewed. Includes: Emphysema QL-Fnmgnjuhgpkfcf-Magrgsli Work Phone: [phone]) [phone] History of Present illness Narrative* This is a 60 year old male previously seen by me on 03/07/2021 with a history of SOB, voice changes, and significant cough with no triggers seen. He was found to have MTD and laryngeal candidiasis. He was being worked up for angioedema by allergy. He was noted to have improvement in his symptoms. * He reports that he had an episode of wheezing yesterday. This has improved from last month. He has been working with [employer] on respiratory retraining. * Recall: 03/07/2021 FREDDIE COLE is a 60 year old male with SOB and concern for angioedema referred to me today by Dr. Kendrick from allergy/immunology. He had normal C4 and C1 esterace labs and also complains of voice changes and chronic cough in addition to SOB. He was seen by Dr. Chavez with ramon per report. * He reports that he has episodes of breathlessness. These happen randomly. The last episode was 02/12/21 while sleeping. These episodes last for 10-15 minutes with wheezing. He uses an albuterol inhaler which manages these episodes. He denies LOC or syncopal episodes. He resumes his activities 30 min utes later. His voice is raspy that has worsened. Today, his voice sounds slightly raspy, per his report. * Denies fevers, chills, night sweats, nausea/vomiting, wt loss or hemoptysis. No complaints of otalgia. * Denies facial pain, pressure or headaches. * Denies chronic nasal congestion, stuffiness or postnasal drainage. * PMH: Reviewed EHR record/intake - pertinent Hx includes: BPH, ED, * PSHx: Reviewed. Includes: knee surgery x2, thyroid surgery in 1998. * Social: * Lives in: a farm * Tobacco: Current smoker * Denies other drug use. * FHx: reviewed. Includes: Emphysema [facility] [address] Work Phone: [phone] History of Present illness Narrative* FREDDIE COLE is a 60 year old male with SOB and concern for angioedema referred to me today by Dr. Kendrick from allergy/immunology. He had normal C4 and C1 esterace labs and also complains of voice changes and chronic cough in addition to SOB. He was seen by Dr. Chavez with no concern per report. * He reports that he has episodes of breathlessness. These happen randomly. The last episode was 02/12/21 while sleeping. These episodes last for 10-15 minutes with wheezing. He uses an albuterol inhaler which manages these episodes. He denies LOC or syncopal episodes. He resumes his activities 30 min utes later. His voice is raspy that has worsened. Today, his voice sounds slightly raspy, per his report. * Denies fevers, chills, night sweats, nausea/vomiting, wt loss or hemoptysis. No complaints of otalgia. * Denies facial pain, pressure or headaches. * Denies chronic nasal congestion, stuffiness or postnasal drainage. * PMH: Reviewed EHR record/intake - pertinent Hx includes: BPH, ED, * PSHx: Reviewed. Includes: knee surgery x2, thyroid surgery in 1998. * Social: * Lives in: a farm * Tobacco: Current smoker * Denies other drug use. * FHx: reviewed. Includes: Emphysema AW-Glxqbhghwceuea-Ecsqmht Voice Work Phone: [phone]) 643-226111-21-2021 History of Present illness NarrativePatient presents to the office today to Establish [...] UTI's. Years ago.. ED is not an bdcjvAK-Dblteou-Axkjvtmj [facility] [address] DO Work Phone: 1([phone] 497-461911-21-2021 History of Present illness NarrativePatient is here for 1 mo medication f/u. [...] of Prostate CA.. ED is not an yklfbXK-Wxvkpps-Sxnovzs Work Phone: [phone] History of Present illness Narrative* 60 yo male with breathing problems for last 2 years.Previously treated for GERD and laryngeal spasm. Presented on chronic steroids for the laryngeal spasm given initial concern for angioedema. * Today: Since last visit, saw Dr. Mcfarlane, with improvement in larynx. Saw allergy. Off prednisone now. Then had gone to the hospital with volume overload, and at the hospital, found to have STEMI withRCA stent. * Today, breathing is feeling well. States since the [...] his left leg. Quit smoking end of April. 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 Presented on chronic steroids for the laryngeal spasm given initial concern for angioedema. * Today: Since last visit, saw Dr. Mcfarlane, with improvement in larynx. Saw allergy. Off prednisone now. Then had gone to the hospital with volume overload, and at the hospital, found to have STEMI withRCA stent. * Today, breathing is feeling well. States since the [...] his left leg. Quit smoking end of April. 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 Since July has had 1x episode a month where hefeels like his throat closes and he can't breath. Last episode happened in the morning. Albuterol helps, and he can breath after that. 10 minutes or so is how long the episodes last at home. Turns purple. He's had to go to the hospital twice, but by the time he gets to the hospital, everything is better. Has seen a weight loss counselor and had endoscopy. Was being worked up for antacid. * Takes prednisone daily. 20 mg. Had attacks when trying to wean off. Was tried to take 15mg. * Today: Since last visit, saw Dr. Mcfarlane, with improvement in larynx. Saw allergy. Off prednisone now. Then had gone to the hospital with volume overload, and at the hospital, found to have STEMI withRCA stent. * Today, breathing is feeling well. States since the [...] his left leg. Quit smoking end of April. * Smoker, trying to quit on his own, doesn't want medication assistance, but will reach out if he changes his mind. 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 Since July has had 1x episode a month where hefeels like his throat closes and he can't breath. Last episode happened in the morning. Albuterol helps, and he can breath after that. 10 minutes or so is how long the episodes last at home. Turns purple. He's had to go to the hospital twice, but by the time he gets to the hospital, everything is better. Has seen a weight loss counselor and had endoscopy. Was being worked up for antacid. * Takes prednisone daily. 20 mg. Had attacks when trying to wean off. Was tried to take 15mg. * Had an RSV infection. * Smoker, trying to quit on his own, doesn't want medication assistance, but will reach out if he changes his mind. 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 Since July has had 1x episode a month where hefeels like his throat closes and he can't breath. Last episode happened in the morning. Albuterol helps, and he can breath after that. 10 minutes or so is how long the episodes last at home. Turns purple. He's had to go to the hospital twice, but by the time he gets to the hospital, everything is better. Has seen a weight loss counselor and had endoscopy. Was being worked up for antacid. * Takes prednisone daily. 20 mg. Had attacks when trying to wean off. Was tried to take 15mg. * Had an RSV infection. * Smoker, trying to quit on his own, doesn't want medication assistance, but will reach out if he changes his mind. 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 FREDDIE COLE presents for initial evaluation today. Referred by: Dr. Giovanni Cantu. He and his provide the following history: * Mr. Cole was referred by Dr. Cantu in Hematology for evaluation of angioedema. He states that the symptoms started 2 years ago. He states that he got a sensation of difficulty breathing. He denies throat tightness, but his has noticed associated cough and hoarseness. He has not had any ass ociated rash, pruritus, lip or tongue swelling. 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 It didn't occur [...] oxygen and symptoms relieved within minutes, and hewent right back to work. He has not received an epinephrine ever for his symptoms. He has gone to the ER in [place] a few times. He states that sometimes by the time he called EMS and they arrived, symptoms have already resolved spontaneously. He states that they have not seen swelling there to hisknowledge. He first saw GI, Dr. Beauchamp and had and EGD, and states that he had a a reaction and haddid have brief symptoms where swelling was associated right before the procedure, but they were able to continue and do the EGD. He saw ENT (Dr. Bobby Chavez) in [place] and had a rhinoscopy and didn't recall any abnormal findings. Was referred to a card scraper but never had an appointment scheduled. He has also seen Pulmonary, Dr. German Nayak and had PFT's and 6 minute walk performed 1 month ago. He is unaware of the results. * He is currently on prednisone which he has been on since November 2020. He states that he was on 20 mg of prednisone daily, and then he cut back to 15 mg, he felt like it made things worse. He restarted on 20 mg, but still had another episode on February 12 despite being on the prednisone. * Regarding his last episode on February 12: He states that he woke in the middle the night with difficulty breathing, sound of wheezing coming from his throat, cough and hoarseness. He states that he took an albuterol treatment which helped him cough more and breathe normally. The symptoms resolved in 5- 10 minutes. He notes that in general all of his episodes resolve within minutes. He has never had prolonged episodes. Sometimes episodes resolve just by sitting and calm breathing. Of note, states that he had an RSV infection that he got from his granddaughter a few weeks before this episode occurred he had been coughing the entire month of January. * His past medical history is significant for Graves' disease. He states that he had an extensive thyroid surgery years ago. He is now on Synthroid. * He notes that he started drooling more, this is unrelated to his throat episodes. The drooling seems to correlate from when he started taking prednisone. He denies taking any supplements. He stopped his statin. He takes Tylenol for pain. He used to take ibuprofen and Aleve, but he has not taken them in almost a year. * He notes that he has gained weight since starting prednisone, and has had a significant appetite since starting prednisone. * Denies any throat symptoms, difficulty breathing after the ingestion of beef or mammalian meat products. * In terms of evaluation to date, he has had normal C4, C1 esterase inhibitor quantitative and functional levels. He is undergoing further evaluation with genetics assays for C1INH, HK, FXII, plasminogen, angiopoietin, myoferlin, and heparan sulfate (HS)-glucosamine 3- O -sulfotransferase 6 as well as immunoblots for C1INH, HK, FXII, and PK. * Rhinitis: Denies history of environmental allergies, hayfever, rhinitis symptoms * Asthma: Denies history of asthma * Eczema: Diagnosed with eczema 15-20 years ago, flares when he gets hot. [place] 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 * Pertinent Allergy/Immunology family history: * No family history of angioedema * No family of asthma, allergies * Grave's disease in family * Mother had breathing issues but not diagnosed as asthma to their knowledge. Also has Parkinson's. [facility] Work Phone: [phone] History of Present illness Narrative* Mr. FREDDIE COLE presents for initial evaluation today. Referred by: Dr. Giovanni Cantu. He and his provide the following history: * Mr. Cole was referred by Dr. Cantu in Hematology for evaluation of angioedema. He states that the symptoms started 2 years ago. He states that he got a sensation of difficulty breathing. He denies throat tightness, but his has noticed associated cough and hoarseness. He has not had any ass ociated rash, pruritus, lip or tongue swelling. 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 It didn't occur [...] oxygen and symptoms relieved within minutes, and hewent right back to work. He has not received an epinephrine ever for his symptoms. He has gone to the ER in [place] a few times. He states that sometimes by the time he called EMS and they arrived, symptoms have already resolved spontaneously. He states that they have not seen swelling there to hisknowledge. He first saw GI, Dr. Beauchamp and had and EGD, and states that he had a a reaction and haddid have brief symptoms where swelling was associated right before the procedure, but they were able to continue and do the EGD. He saw ENT (Dr. Bobby Chavez) in [place] and had a rhinoscopy and didn't recall any abnormal findings. Was referred to a card scraper but never had an appointment scheduled. He has also seen Pulmonary, Dr. German Nayak and had PFT's and 6 minute walk performed 1 month ago. He is unaware of the results. * He is currently on prednisone which he has been on since November 2020. He states that he was on 20 mg of prednisone daily, and then he cut back to 15 mg, he felt like it made things worse. He restarted on 20 mg, but still had another episode on February 12 despite being on the prednisone. * Regarding his last episode on February 12: He states that he woke in the middle the night with difficulty breathing, sound of wheezing coming from his throat, cough and hoarseness. He states that he took an albuterol treatment which helped him cough more and breathe normally. The symptoms resolved in 5- 10 minutes. He notes that in general all of his episodes resolve within minutes. He has never had prolonged episodes. Sometimes episodes resolve just by sitting and calm breathing. Of note, states that he had an RSV infection that he got from his granddaughter a few weeks before this episode occurred he had been coughing the entire month of January. * His past medical history is significant for Graves' disease. He states that he had an extensive thyroid surgery years ago. He is now on Synthroid. * He notes that he started drooling more, this is unrelated to his throat episodes. The drooling seems to correlate from when he started taking prednisone. He denies taking any supplements. He stopped his statin. He takes Tylenol for pain. He used to take ibuprofen and Aleve, but he has not taken them in almost a year. * He notes that he has gained weight since starting prednisone, and has had a significant appetite since starting prednisone. * Denies any throat symptoms, difficulty breathing after the ingestion of beef or mammalian meat products. * In terms of evaluation to date, he has had normal C4, C1 esterase inhibitor quantitative and functional levels. He is undergoing further evaluation with genetics assays for C1INH, HK, FXII, plasminogen, angiopoietin, myoferlin, and heparan sulfate (HS)-glucosamine 3- O -sulfotransferase 6 as well as immunoblots for C1INH, HK, FXII, and PK. * Rhinitis: Denies history of environmental allergies, hayfever, rhinitis symptoms * Asthma: Denies history of asthma * Eczema: Diagnosed with eczema 15-20 years ago, flares when he gets hot. [place] 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 * Pertinent Allergy/Immunology family history: * No family history of angioedema * No family of asthma, allergies * Grave's disease in family * Mother had breathing issues but not diagnosed as asthma to their knowledge. Also has Parkinson's. [facility] Work Phone: [phone] History of Present illness Narrative* Mr. FREDDIE COLE presents for initial evaluation today. Referred by: Dr. Giovanni Cantu. He and his provide the following history: * Mr. Cole was referred by Dr. Cantu in Hematology for evaluation of angioedema. He states that the symptoms started 2 years ago. He states that he got a sensation of difficulty breathing. He denies throat tightness, but his has noticed associated cough and hoarseness. He has not had any ass ociated rash, pruritus, lip or tongue swelling. 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 It didn't occur [...] oxygen and symptoms relieved within minutes, and hewent right back to work. He has not received an epinephrine ever for his symptoms. He has gone to the ER in [place] a few times. He states that sometimes by the time he called EMS and they arrived, symptoms have already resolved spontaneously. He states that they have not seen swelling there to hisknowledge. He first saw GI, Dr. Beauchamp and had and EGD, and states that he had a a reaction and haddid have brief symptoms where swelling was associated right before the procedure, but they were able to continue and do the EGD. He saw ENT (Dr. Bobby Chavez) in [place] and had a rhinoscopy and didn't recall any abnormal findings. Was referred to a card scraper but never had an appointment scheduled. He has also seen Pulmonary, Dr. German Nayak and had PFT's and 6 minute walk performed 1 month ago. He is unaware of the results. * He is currently on prednisone which he has been on since November 2020. He states that he was on 20 mg of prednisone daily, and then he cut back to 15 mg, he felt like it made things worse. He restarted on 20 mg, but still had another episode on February 12 despite being on the prednisone. * Regarding his last episode on February 12: He states that he woke in the middle the night with difficulty breathing, sound of wheezing coming from his throat, cough and hoarseness. He states that he took an albuterol treatment which helped him cough more and breathe normally. The symptoms resolved in 5- 10 minutes. He notes that in general all of his episodes resolve within minutes. He has never had prolonged episodes. Sometimes episodes resolve just by sitting and calm breathing. Of note, states that he had an RSV infection that he got from his granddaughter a few weeks before this episode occurred he had been coughing the entire month of January. * His past medical history is significant for Graves' disease. He states that he had an extensive thyroid surgery years ago. He is now on Synthroid. * He notes that he started drooling more, this is unrelated to his throat episodes. The drooling seems to correlate from when he started taking prednisone. He denies taking any supplements. He stopped his statin. He takes Tylenol for pain. He used to take ibuprofen and Aleve, but he has not taken them in almost a year. * He notes that he has gained weight since starting prednisone, and has had a significant appetite since starting prednisone. * Denies any throat symptoms, difficulty breathing after the ingestion of beef or mammalian meat products. * In terms of evaluation to date, he has had normal C4, C1 esterase inhibitor quantitative and functional levels. He is undergoing further evaluation with genetics assays for C1INH, HK, FXII, plasminogen, angiopoietin, myoferlin, and heparan sulfate (HS)-glucosamine 3- O -sulfotransferase 6 as well as immunoblots for C1INH, HK, FXII, and PK. * Rhinitis: Denies history of environmental allergies, hayfever, rhinitis symptoms * Asthma: Denies history of asthma * Eczema: Diagnosed with eczema 15-20 years ago, flares when he gets hot. [place] 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 * Pertinent Allergy/Immunology family history: * No family history of angioedema * No family of asthma, allergies * Grave's disease in family * Mother had breathing issues but not diagnosed as asthma to their knowledge. Also has Parkinson's. [facility]Uue[facility] DO Work Phone: Consult note Author Estevan Haywood [facility] March 19, 2023 10:39am Note Date/Time March 19, 2023 1 0:39am [facility] Medical Records Department [address] [place] [address] Counseling Note - Pharmacy 03/19/23 1039 MR#: [id number] Acct: [id number] Name: FREDDIE COLE Rep #:[id number] : 1960 62 From: Estevan Haywood PCP: Dr. Biju Lobo, DO Status:ADM IN Y Location: [place] [id number] Pharmacy MA Med Reconciliation Pharmacy Service has performed discharge medication reconciliation for this patient. The patient's discharge medication list was reviewed for discrepancies and discrepancies were resolved. Medications at Discharge Home Medications omeprazole 40 mg capsule,delayed release 40 mg PO BID gerd #120 caps 11/18/20 albuterol sulfate 90 mcg/actuation aerosol inhaler 2 puff inhalation Q6H PRN shortness of breath or wheezing #6.7 grams 11/23/20 levothyroxine 150 mcg tablet (Synthroid) 150 mcg PO DAILY thyroid 01/13/21 aspirin 81 mg chewable tablet (Luis Alberto Chewable Low Dose Aspirin) 81 mg PO DAILY heart health 01/24/22 clopidogrel 75 mg tablet 75 mg PO DAILY anit platelet 01/24/22 ezetimibe 10 mg tablet 10 mg PO DAILY as prescribed 01/24/22 metoprolol succinate 25 mg tablet,extended release 24 hr 12.5 mg PO DAILY bp 12/07/22 rosuvastatin 5 mg tablet 5 mg PO DAILY cholesterol 01/24/22 tamsulosin 0.4 mg capsule 0.4 mg PO BID prostate 05/17/22 furosemide 40 mg tablet (Lasix) 40 mg PO DAILY diuretic 06/04/22 isosorbide mononitrate 60 mg tablet,extended release 24 hr 60 mg PO DAILY heart 06/04/22 spironolactone 25 mg tablet 25 mg PO DAILY diuretic 06/04/22 Bilateral knee-high compression stockings (10-20) #2 ea 07/02/22 Handicap placard #1 ea 10/01/22 atropine 1 % eye drops See Rx Instructions buccal DAILY eyes #10 mL 01/31/23 carbidopa 25 mg-levodopa 100 mg tablet 2 tab PO TID parkinsons #540 tabs 01/31/23 budesonide-formoterol HFA 160 mcg-4.5 mcg/actuation aerosol inhaler (Symbicort) 2 puff inhalation BID as directed #1 ea 02/12/23 03/19/23 1039 <Electronically signed by Estevan tucker> Date _ Estevan Frederick Signature (if applicable): Date CC: ~ Signed [facility] Work Phone: Discharge summary Author Harrison Spears [facility] March 19, 2023 10:27am Note Date/Time March 19, 2023 1 0:25am [facility] Medical Records Department [address] [place] [address] Discharge Summary 03/19/23 1023 MR#: [id number] Acct: [id number] Name: FREDDIE COLE Rep #:[id number] : 1960 62 From: Harrison Spears DO PCP: Dr. Biju Lobo, DO Status:ADM IN Location: TX3 [id number] Providers Date of Admission: 03/16/23 Primary Care Physician: Dr. Biju Lobo, Consultations 03/16/23 15:32 Consult: Gastroenterology Routine Consulting Provider: [facility] Reason for Consult: diarrhea/abd cramps for 10 days EMERGENT Consult: No MD Notified: Yes Date Notified: 03/16/23 Time Notified: 14:53 Method of Notification: Verbal Reason For Visit: PERSISTANT DIARRHEA Diagnosis Discharge Diagnosis (1) Diarrhea: Status: Acute Code(s): R19.7 - Diarrhea, unspecified Qualifiers: Diarrhea type: unspecified type Qualified Code(s): R19.7 - Diarrhea, unspecified Plan Acute diarrhea and abdominal cramps * possible small bowel inflammation/infectious cause, exact etiology unclear: * CT abdomen with IV contrast distal small bowel thickening, fluid distention with mesenteric edema. Colonic diverticulosis without diverticulitis. 4.6 cm right sinus and cortical renal cyst. * discussed with the weight loss counselor Dr. Beauchamp. Consult requested. * Stool studies: infectious work up negative. Lactoferrin negative. C. diff test cancelled because of hard stool. C. diff essentially ruled out. * EGD showed mild inflammation in the ileum s/s ileitis which was biopsied. SAUL Beauchamp, he feels it is less likely Crohn's disease. No treatment at this time. Await on Bx results. Esophagitis * Non-severe actue esophagitis w/o bleeding. No gross lesions in the entire stomach. * SAUL Beauchamp, recommends PPI. * Patient are taking omeprazole twice daily. Recommend continue with but also recommended dietary changes and including minimizing caffeine, minimizing to no alcohol, not eating several hours prior to going to sleep as well as using a wedge pillow to keep them propped up. Chronic conditions: * Persistent asthma, severe with no exacerbation and obstructive sleep apnea. Patient follows in pulmonary clinic with Dr. Nayak and Karen Lora NP. Was recommended low-salt diet, AutoPap and weight loss and inhaler Spiriva. Continue CPAP at night. Bronchodilator DuoNeb as needed for wheezing/airway spasm. Monitor pulse ox. Patient had spirometry/PFT in August 2022 which was reported unreliable result with inconsistent and did not meet criteria for acceptability and reproducibility. Plethysmography showed mild restriction, TLC 76% predicted, FRC 69%, RV/TLC 94%, VC 69%. No evidence of hyperinflation. DLCO 81% predicted.03/17: Wheezing and stridor better. AutoPap * Chronic HFpEF/diastolic heart failure and right carotid stenosis: I do not see any echo report in our system but patient might had outside. Does not need acute echo studies. Patient has moderate right extracranial ICA and normal left ICA. Patient is on baby aspirin and Plavix. Patient on diuretic Lasix, spironolactone, rosuvastatin, isosorbide mononitrate, and Zetia * Cricopharyngeal dysphagia: Patient has history of recurrent trouble swallowing and has seen Dr. Beauchamp in the office in November 2020. Patient had extensive evaluation including CT of the chest, CT of the neck which did not show any gross abnormality. History of Graves' disease status post thyroidectomy. On thyroid replacement treatment. No history of GERD. He was referred to [facility] tertiary care outpatient. EGD on 11/23/2020 shows LA grade B reflux esophagitis, normal stomach and D2. He also had dilatation of cricopharyngeal dysphagia. Patient had modified barium swallow which was reported mild oropharyngeal phase dysphagia. There was also concern was a spasm of vocal cords. Patient was referred to pulmonology and ENT. * Parkinson disease: Patient on carbidopa levodopa.He is also on carbidopa levodopa.He follows neurologist Dr. Hernandez. * Patient with a chronic raspy voice: Unclear this is due to just aging or this may be related with reflux. Can follow-up with ENT as needed. DVT prophylaxis, moderate risk: Enoxaparin 40 mill subcu daily. Medications at Discharge Home Medications omeprazole 40 mg capsule,delayed release 40 mg PO BID gerd #120 caps 11/18/20 albuterol sulfate 90 mcg/actuation aerosol inhaler 2 puff inhalation Q6H PRN shortness of breath or wheezing #6.7 grams 11/23/20 levothyroxine 150 mcg tablet (Synthroid) 150 mcg PO DAILY thyroid 01/13/21 aspirin 81 mg chewable tablet (Luis Alberto Chewable Low Dose Aspirin) 81 mg PO DAILY heart health 01/24/22 clopidogrel 75 mg tablet 75 mg PO DAILY anit platelet 01/24/22 ezetimibe 10 mg tablet 10 mg PO DAILY as prescribed 01/24/22 metoprolol succinate 25 mg tablet,extended release 24 hr 12.5 mg PO DAILY bp 01/24/22 rosuvastatin 5 mg tablet 5 mg PO DAILY cholesterol 01/24/22 tamsulosin 0.4 mg capsule 0.4 mg PO BID prostate 05/17/22 furosemide 40 mg tablet (Lasix) 40 mg PO DAILY diuretic 06/04/22 isosorbide mononitrate 60 mg tablet,extended release 24 hr 60 mg PO DAILY heart 06/04/22 spironolactone 25 mg tablet 25 mg PO DAILY diuretic 06/04/22 Bilateral knee-high compression stockings (10-20) #2 ea 07/02/22 Handicap placard #1 ea 10/01/22 atropine 1 % eye drops See Rx Instructions buccal DAILY eyes #10 mL 01/31/23 carbidopa 25 mg-levodopa 100 mg tablet 2 tab PO TID parkinsons #540 tabs 01/31/23 budesonide-formoterol HFA 160 mcg-4.5 mcg/actuation aerosol inhaler (Symbicort) 2 puff inhalation BID as directed #1 ea 02/12/23 Hospital Course Operations None Procedures Colonoscopy and EGD Summary of Care Provided Minutes Spent on Discharge: 32 Weight / BMI Weight Weight: 98.5 kg Body Mass Index (BMI) 32.1 ABG / Lab / Microbiology Data 03/19/23 06:36 03/19/23 06:36 Laboratory: Laboratory Results - last 24 hr 03/19/23 06:36: WBC 6.1, RBC 4.76, Hgb 14.6, Hct 45.9, MCV 96.4 H, MCH 30.7, MCHC 31.8 L, RDW Std Deviation 47.8 H, RDW Coeff of Nick 13.5, Plt Count 146 L, MPV 12.1 H, Immature Gran % (Auto) 0.200, Neut % (Auto) 67.0, Lymph % (Auto) 22.9, Solano % (Auto) 7.6, Eos % (Auto) 2.0, Baso % (Auto) 0.3, Absolute Neuts (auto) 4.1, Absolute Lymphs (auto) 1.39, Nucleated RBC % 0, Sodium 140, Potassium 3.6, Chloride 107, Carbon Dioxide 29.0, Anion Gap 4 L, BUN 7, Creatinine 1.01, Estim Creat Clear Calc 85.51, Est GFR (MDRD) Af Amer 95, Est GFR (MDRD) Non-Af 79, BUN/Creatinine Ratio 6.9 L, Glucose 91, Calcium 9.2 Microbiology: Microbiology 03/16/23 13:43 Blood Culture (Wb) - Anticubital Right Blood Culture - Preliminary No growth in 48 hours. 03/16/23 13:35 Blood Culture (Wb) - Anticubital Left Blood Culture - Preliminary No growth in 48 hours. 03/16/23 14:10 Urine, Catheterized Urine Culture - Final Culture exhibits no growth. 03/16/23 11:30 Stool Enteric Bacteriology - Final 03/17/23 11:30 Stool Stool Lactoferrin - Final 03/17/23 11:30 Stool Stool Occult Blood (FRANCESCA) - Final 03/16/23 14:10 Urine, Clean Catch Streptococcus pneumoniae Antigen (M - Final 03/16/23 14:10 Urine, Clean Catch Legionella Antigen - Final D/C Instructions Discharge Diet: - (Minimize red meat, pork products, spicy foods, alcohol and caffeine. Do not eat about 4 hours prior to going to sleep.) Meaningful Use Info Meaningful Use Diagnoses (Choose all that apply): None applicable Discharge Plan Admission Admit Date/Time: 03/16/23 13:47 Primary Reason for Your Visit: Diarrhea Attending Provider: Harrison Spears Primary Care Provider: Biju Lobo Consulting Providers: Delfin Russell Instructions Additional Instructions / Restrictions: Please follow-up with Dr. Beauchamp for results of your biopsies from your procedures that you had while you are here. The colonoscopy did show some ileitis, which is inflammation of the latter portion of your colon. Unclear with the significance of that. You do have esophagitis, inflammation of your esophagus. Continue taking your omeprazole but also try using a wedge pillow when you go to sleep to keep yourself propped up. You may have chronic esophagitis that may be due to severe reflux and using wedge pillow may help minimize that. Discharge Orders/Prescriptions Prescriptions: Continued tamsulosin 0.4 mg capsule 0.4 mg PO BID furosemide [Lasix] 40 mg tablet 40 mg PO DAILY spironolactone 25 mg tablet 25 mg PO DAILY (DME) Bilateral knee-high compression stockings (10-20) See Rx Instructions .Route .MEDSUPPLY Qty: 2 0RF Rx Instructions: As directed carbidopa-levodopa 25-100 mg tablet 2 tab PO TID Qty: 540 2RF atropine 1 % drops See Rx Instructions buccal DAILY Qty: 10 2RF Rx Instructions: Take 1 to 2 drops buccally daily levothyroxine [Synthroid] 150 mcg tablet 150 mcg PO DAILY clopidogrel 75 mg tablet 75 mg PO DAILY aspirin [Luis Alberto Chewable Aspirin] 81 mg tablet,chewable 81 mg PO DAILY Patient Comments: 1 tablet by mouth once a day metoprolol succinate 25 mg tablet extended release 24 hr 12.5 mg PO DAILY ezetimibe 10 mg tablet 10 mg PO DAILY rosuvastatin 5 mg tablet 5 mg PO DAILY isosorbide mononitrate 60 mg tablet extended release 24 hr 60 mg PO DAILY Rx Instructions: Take one and 1/2 tab in AM omeprazole 40 mg capsule,delayed release(DR/EC) 40 mg PO BID Qty: 120 0RF Rx Instructions: Take one cap by mouth two times a day for eight weeks. Then will taper. albuterol sulfate 90 mcg/actuation HFA aerosol inhaler 2 puff inhalation Q6H PRN (Reason: shortness of breath or wheezing) Qty: 6.7 0RF (DME) Handicap placard See Rx Instructions .Route .MEDSUPPLY Qty: 1 0RF Rx Instructions: Expiration: 10/01/2025 budesonide-formoterol [Symbicort] 160-4.5 mcg/actuation HFA aerosol inhaler 2 puff inhalation BID Qty: 1 0RF Rx Instructions: administer with spacer, rinse mouth after each use Referrals / Follow Up: Biju Lobo DO [Primary Care Provider] - Within 2 Weeks [facility] [Provider Group] - Within 2 Weeks Disposition Disposition (needs filled in before D/C Order can be placed): Home, Self Care Charges/Coding Visit Charges Inpatient E&M: 34173 Disch Hosp >30min 03/19/23 1027 <Electronically signed by Harrison Spears DO> Cosigner Signature (if applicable): CC: Dr. Harrison Spears DO; Dr. Biju Lobo DO~ Signed [facility] Work Phone: Evaluation note* Skin: Warm, Rt Radial access site clean, soft, no oozing or swelling noted, minimal tenderness to palpation. Bandage replacedEyes: EOMI, clear sclera, wears corrective lensesENMT: mucous membranes moist, no apparent injury, no lesions seenHead/Neck: Neck supple, no apparent injury, No JVDGastrointestinal: Nondistended, obesity, soft, non- tender, no rebound tenderness or guardingCardiovascular: RRR, 2+ equal pulses of the extremitiesExtremities: Bilateral extremities with minimal edemaPsychological: Appropriate mood and behaviorRespiratory/Thorax: Rales and crackles bilaterally, with good chest expansionConstitutional: Well developed, awake/alert/oriented x3, no distress and cooperative [facility] noteNo assessment information available [facility] Work Phone: evaluation note* Diagnosis Onset Date Resolution Status Fatigue acute Hypersomnia acute Mild cognitive impairment ac [place] Parkinson's disease acute [facility] Work Phone: Evaluation note* Diagnosis Onset Date Resolution Status Fatigue acute Hypersomnia acute Mild cognitive impairment [place] Parkinson's disease acute Asthma acute Observed sleep apnea acute Chronic diastolic (congestive) heart failure chronic [facility] Work Phone: Evaluation note* Diagnosis Onset Date Resolution Status Fatigue acute Hypersomnia acute Mild cognitive impairment [place] Parkinson's disease chronic Asthma acute Observed sleep apnea acute Chronic diastolic (congestive) heart failure chronic MARYJO (obstructive sleep apnea) acute Smoking greater than 30 pack years chronic Carotid artery, internal, occlusion acute Parkinson's disease [facility] Work Phone: Evaluation note* Diagnosis Onset Date Resolution Status Asthma acute Observed sleep apnea acute Chronic diastolic (congestive) heart failure chronic MARYJO (obstructive sleep apnea) acute Smoking greater than 30 pack years chronic Carotid artery, internal, occlusion acute Parkinson's disease chronic [facility] Work Phone: Evaluation note* Diagnosis Onset Date Resolution Status MARYJO (obstructive sleep apnea) acute Smoking greater than 30 pack years chronic Carotid artery, internal, occlusion acute Parkinson's disease chronic Asthma acute Asthma acute Observed sleep apnea acute Chronic diastolic (congestive) heart failure chronic [facility] Work Phone: Evaluation note* Diagnosis Onset Date Resolution Status Asthma acute Asthma acute Observed sleep apnea acute Chronic diastolic (congestive) heart failure chronic Carotid artery, internal, occlusion acute [facility] Work Phone: Evaluation note* Diagnosis Onset Date Resolution Status Asthma chronic Observed sleep apnea acute Asthma chronic Chronic diastolic (congestive) heart failure chronic Carotid artery, internal, occlusion acute Oral thrush acute Asthma chronic Acute hypoxemic respiratory failure acute CAD (coronary artery disease) acute Diarrhea acute Orthostatic hypotension acut e Pneumonia acute Asthma chronic Chronic diastolic (congestive) heart failure [facility] Work Phone: Evaluation note* Diagnosis Onset Date Resolution Status Observed sleep apnea acute Asthma chronic Chronic diastolic (congestive) heart failure chronic Carotid artery, internal, occlusion acute Oral thrush acute Asthma chronic Acute hypoxemic respiratory failure acute CAD (coronary artery disease) acute Diarrhea acute Orthostatic hypotension acut e Pneumonia acute Asthma chronic Chronic diastolic (congestive) heart failure [facility] Work Phone: Evaluation note* Diagnosis Onset Date Resolution Status Observed sleep apnea acute Carotid artery, internal, occlusion acute Oral thrush acute Diarrhea resolved Orthostatic hypotension reso lved [facility] Work Phone: Evaluation note* Diagnosis Onset Date Resolution Status Carotid artery, internal, occlusion acute Oral thrush acute Diarrhea resolved Orthostatic hypotension reso lved [facility] Work Phone: Evaluation note* Diagnosis Onset Date Resolution Status Carotid artery, internal, occlusion acute Asthma acute Oral thrush acute MARYJO (obstructive sleep apnea) chronic Asthma acute Diarrhea resolved Orthostatic hypotension reso lved Asthma acute Cough acute Dyspnea acute Moist mucous membranes of ear, nose, and throat acute MARYJO (obstructive sleep apnea) [facility] Work Phone: Evaluation note* Diagnosis Benign prostatic hyperplasia with urinary obstruction and other lower urinary tract symptoms- Primary Nocturia Erectile disorder documented in this encounter [facility] Work Phone: Evaluation note* Diagnosis Onset Date Resolution Status Asthma chronic MARYJO (obstructive sleep apnea) chronic Asthma chronic CAD (coronary artery disease) chronic Diarrhea resolved Orthostatic hypotension reso lved Cough acute Asthma chronic MARYJO (obstructive sleep apnea) chronic (HFpEF) heart failure with p reserved ejection fraction chronic CAD (coronary artery disease) chronic Carotid artery disease chron ic COPD (chronic obstructive pulmonary disease) chronic Hyperlipidemia chronic Hypertension chronic MARYJO (obstructive sleep apnea) chronic Parkinson's disease chronic Shortness of breath on exertion chronic 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, 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 Vocal cord dysfunction acute Asthma chronic Diastolic dysfunction chroni c Hypoxia chronic MARYJO (obstructive sleep apnea) chronic Shortness of breath on exertion chronic [facility] Work Phone: Evaluation note* Diagnosis 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 Stridor Dyspnea on exertion Other dyspnea and respiratory abnormality documented in [facility] Diagnosis 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 dependence Tracheostomy status Postoperative pain Other acute postoperative pain documented in this [facility] Diagnosis 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 documented in this [facility] Diagnosis 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 documented in this [facility] Diagnosis Benign prostatic hyperplasia with urinary obstruction and other lower urinary tract symptoms Nocturia Erectile disorder Urinary incontinence, unspecified type Recurrent UTI Urinary tract infection, site not specified documented in this encounter [facility] Work Phone: Evaluation note* Diagnosis 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 Reports x4 mini breathing ep isodes since previous visit. One being at night [...] reflux trigger. Patient to be d/c'ed from ST services at this time 2/2 indep with HEP, respiratory control. Patient to follow-up with my laryngology colleague in mid-April. May benefit from GI referral.[id number] Work Phone: Hospital Discharge instructions* Activity:activity as tolerated. May shower. * Additional Orders:Additional Instructions: Mr. Cole,It was a pleasure caring for you. You came infor swelling of your legs. We used some [...] that you have gained 3 pounds from y our normal weight, take one Lasix pill. You will need to follow up with your PCP in 1-2 weeks, Cardiology (appointment has been booked for you), and the specialists you were seeing for your laryngealspasm. Take care, [facility] Team1. DAPT with aspirin and Plavix uninterrupted for 12 months given NSTE-ACS presentation2. Radial artery access recovery protocol3. Continue high-intensity statin therapy4. Continue beta shahid therapy for at least 3 years given NSTE-ACS presentation 5. Refer to cardiac rehabilitation on discharge * Call Provider If:Breathing faster than normal. Breathing harder than normal or having retractions. Not being able to go 4-6 hours between albuterol treatments. Any new concerning symptoms. Chest discomfort, difficulty breathing, worsening of your leg swelling. * Follow Up Appointment 1:Physician/Dept/Service: Dr. Biju Lobo - [place] for Referral: [facility] F/UIRIS to Schedule in: 1 week, Office to call patient directly to schedule appointmentLocation: [address] [place], [place] [address]Gvkxt Number: [phone]: Please arrive 10-15 minutes early, wear a mask prior to entering the building, bring discharge summary, bring photo ID, current list of medications & dosages, insurance cards and any copay that may apply. If unable to keep this appointment, please call to cancel at least 24 hrs prior to appointment. * Follow Up Appointment 2:Physician/Dept/Service: Jayne Godinez RN UTILIZATION MANAGEMENT [facility] - CardiologyScheduled Date/Time: 23-Jun-2021 14:30Location: [address], [place], [place] [address]Tcnxt Number: [phone]: Please wear a mask when entering the building. Please arrive 10-15 minutes early, bring photo ID, current list of medications & dosages, insurance cards and any copay that may apply. If unable to keep this appointment, please call to cancel at least 24 hrs prior to appointment. * Follow Up Appointment 3:Physician/Dept/Service: Cardiac RehabilitationComments: You will be called with the details of the appointment in the next few days. Please [phone] ( ) if you do not hear back by then to inquire about appointment. Please arrive 15 minutes early and bring photo ID, insurance card, and medication list. If unable to attend appointment, please call to cancel within 24 hours. 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 [facility] Work Phone: Hospital Discharge instructionsAmbulatory Orders* Phase II, Outpatient Pulmonary Rehab Location: None Selected [facility] Work Phone: Reason for referral (narrative)No reason for referral information availableWHolzer [facility] System Work Phone: Chief Complaint Patient here for a new [...] today. * follow up dyspnea * FREDDIE COLE is here for a follow-up visit. * [...] of stress test results Reason for Referral Specialty Diagnoses / Procedures Referred By Eb anderson Referred To Contact Diagnoses Bilateral vocal fold paralysis Stridor Procedures CT NECK WITH CONTRAST CHG CT SOFT TISSUE NECK W/CONTRAST MATERIAL Abbie Galvan MD [address] [facility] [address] [place] [address] Referral ID Status Reason Start Date Expiration Date V isits Requested Visits Authorized [id number] New Request 07/10/2023 08/03/2024 1 1 Specialty Diagnoses / Procedures Referred By Eb anderson Referred To Contact Social Work Diagnoses Tracheostomy dependence Abbie Galvan MD [address] [place] [address] [address] [place] [address] Referral ID Status Reason Start Date Expiration Date V isits Requested Visits Authorized [id number] New Request 09/06/2023 09/30/2024 1 1 Specialty Diagnoses / Procedures Referred By Contac t Referred To Contact Procedures PLATELET MONITORING PER PROTOCOL Abbie Galvan MD [address] [place] [address] [address] [place] [address] Referral ID Status Reason Start Date Expiration Date V isits Requested Visits Authorized [id number] New Request 09/02/2023 09/26/2024 1 1 Specialty Diagnoses / Procedures Referred By Contac t Referred To Contact Procedures DVT/VTE RISK ASSESSMENT Abbie Galvan MD [address] [place] [address] [address] [place] [address] Referral ID Status Reason Start Date Expiration Date V isits Requested Visits Authorized [id number] New Request 09/02/2023 09/26/2024 1 1 Specialty Diagnoses / Procedures Referred By Contac t Referred To [address] [place] [address] Referral ID Status Reason Start Date Expiration Date Visits Re quested Visits Authorized Specialty Diagnoses / Procedures Referred By Contac t Referred To Contact Procedures NO MECHANICAL DVT PROPHYLAXIS Abbie Galvan MD [address] [place] [address] [address] [place] [address] Referral ID Status Reason Start Date Expiration Date V isits Requested Visits Authorized [id number] New Request 09/02/2023 09/26/2024 1 1 Specialty Diagnoses / Procedures Referred By Contac t Referred To Contact Procedures LOW RISK - NO PHARMACOLOGICAL DVT PROPHYLAXIS Abbie Galvan MD [address] [place] [address] [address] [place] [address] Referral ID Status Reason Start Date Expiration Date V isits Requested Visits Authorized [id number] New Request 09/02/2023 09/26/2024 1 1 Referral ID Status Reason Start Date Expiration Date V isits Requested Visits Authorized [id number] New Request 09/02/2023 09/26/2024 1 1 Chief Complaint and Reason for Visit Chief Complaint RUQ PAIN Chief Complaint RUQ PAIN ABD PAIN Chief Complaint sob Chief Complaint Muscle weakness (gen eralized) Muscle weakness (generalized) Chief Complaint Muscle weakness (gen eralized) Muscle weakness (generalized) CONSULT/ POSSIBLE ALS E ORDERS/ADD'L ORDER DR WALKER Reason for Visit Fatigue Hypersomnia Mild cognitive impairment Parkinson's disease Chief Complaint Muscle weakness (gen eralized) Muscle weakness (generalized) CONSULT/ POSSIBLE ALS E ORDERS/ADD'L ORDER DR WALKER HYPERSOMNIA, PARASOMNIA Asthma Reason for Visit Fatigue Hypersomnia Mild cognitive impairment Parkinson's disease Asthma Observed sleep apnea Chronic diastolic (congestive) heart failure Chief Complaint Muscle weakness (gen eralized) Muscle weakness (generalized) CONSULT/ POSSIBLE ALS E ORDERS/ADD'L ORDER DR WALKER HYPERSOMNIA, PARASOMNIA Asthma PARKINSON'S DISEASE, MILD COGNITIVE IMPAIRMENT Unspecified asthma, uncomplicated Unspecified asthma, uncomplicated Reason for Visit Fatigue Hypersomnia Mild cognitive impairment Parkinson's disease Asthma Observed sleep apnea Chronic diastolic (congestive) heart failure Chief Complaint Muscle weakness (gen eralized) Muscle weakness (generalized) CONSULT/ POSSIBLE ALS E ORDERS/ADD'L ORDER DR WALKER HYPERSOMNIA, PARASOMNIA Asthma PARKINSON'S DISEASE, MILD COGNITIVE IMPAIRMENT Unspecified asthma, uncomplicated Unspecified asthma, uncomplicated Unspecified asthma, uncomplicated Unspecified asthma, uncomplicated Reason for Visit Fatigue Hypersomnia Mild cognitive impairment Parkinson's disease Asthma Observed sleep apnea Chronic diastolic (congestive) heart failure Chief Complaint CONSULT/ POSSIBLE AL S E ORDERS/ADD'L ORDER DR WALKER HYPERSOMNIA, PARASOMNIA Asthma PARKINSON'S DISEASE, MILD COGNITIVE IMPAIRMENT Unspecified asthma, uncomplicated Unspecified asthma, uncomplicated Unspecified asthma, uncomplicated Unspecified asthma, uncomplicated 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 SHUTTING OFF, SLEEP APNEA 4 M FU NICOTINE DEPENDENCE, SMOKING >30 PK YRS Reason for Visit Fatigue Hypersomnia Mild cognitive impairment Parkinson's disease Asthma Observed sleep apnea Chronic diastolic (congestive) heart failure MARYJO (obstructive sleep apnea) Smoking greater than 30 pack years Carotid artery, internal, occlusion Parkinson's disease Chief Complaint E ORDERS/ADD'L ORDER DR AARON SHEIKH, PARASOMNIA Asthma PARKINSON'S DISEASE, MILD COGNITIVE IMPAIRMENT Unspecified asthma, uncomplicated Unspecified asthma, uncomplicated Unspecified asthma, uncomplicated Unspecified asthma, uncomplicated 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 SHUTTING OFF, SLEEP APNEA 4 M FU NICOTINE DEPENDENCE, SMOKING >30 PK YRS INTERNAL CAROTID ARTERY OCCLUSION Reason for Visit Asthma Observed sleep apnea Chronic diastolic (congestive) heart failure MARYJO (obstructive sleep apnea) Smoking greater than 30 pack years Carotid artery, internal, occlusion Parkinson's disease Chief Complaint Unspecified asthma, uncomplicated Unspecified asthma, uncomplicated Unspecified asthma, uncomplicated Unspecified asthma, uncomplicated 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 SHUTTING OFF, SLEEP APNEA 4 M FU NICOTINE DEPENDENCE, SMOKING >30 PK YRS INTERNAL CAROTID ARTERY OCCLUSION Chest cold 3 M FU Reason for Visit MARYJO (obstructive sle ep apnea) Smoking greater than 30 pack years Carotid artery, internal, occlusion Parkinson's disease Asthma Asthma Observed sleep apnea Chronic diastolic (congestive) heart failure Chief Complaint Chest cold 3 M FU 4 M FU EVAL R ICA OCCLUSION Reason for Visit Asthma Asthma Observed sleep apnea Chronic diastolic (congestive) heart failure Carotid artery, internal, occlusion Chief Complaint Chest cold 3 M FU 4 M FU EVAL R ICA OCCLUSION 3 M FU PERSISTANT DIARRHEA Reason for Visit Asthma Observed sleep apnea Asthma Chronic diastolic (congestive) heart failure Carotid artery, internal, occlusion Oral thrush Asthma Acute hypoxemic respiratory failure CAD (coronary artery disease) Diarrhea Orthostatic hypotension Pneumonia Asthma Chronic diastolic (congestive) heart failure Chief Complaint 3 M FU 4 M FU EVAL R ICA OCCLUSION 3 M FU PERSISTANT DIARRHEA PERSISTANT DIARRHEA PERSISTANT DIARRHEA PERSISTANT DIARRHEA PERSISTANT DIARRHEA Reason for Visit Observed sleep apnea Asthma Chronic diastolic (congestive) heart failure Carotid artery, internal, occlusion Oral thrush Asthma Acute hypoxemic respiratory failure CAD (coronary artery disease) Diarrhea Orthostatic hypotension Pneumonia Asthma Chronic diastolic (congestive) heart failure Chief Complaint 3 M FU 4 M FU EVAL R ICA OCCLUSION 3 M FU PERSISTANT DIARRHEA PERSISTANT DIARRHEA PERSISTANT DIARRHEA PERSISTANT DIARRHEA PERSISTANT DIARRHEA Reason for Visit Observed sleep apnea Carotid artery, internal, occlusion Oral thrush Diarrhea Orthostatic hypotension Chief Complaint 4 M FU EVAL R ICA OCCLUSION 3 M FU PERSISTANT DIARRHEA PERSISTANT DIARRHEA PERSISTANT DIARRHEA PERSISTANT DIARRHEA PERSISTANT DIARRHEA SOB Reason for Visit Carotid artery, inte rnal, occlusion Oral thrush Diarrhea Orthostatic hypotension Chief Complaint 4 M FU EVAL R ICA OCCLUSION 3 M FU PERSISTANT DIARRHEA PERSISTANT DIARRHEA PERSISTANT DIARRHEA PERSISTANT DIARRHEA PERSISTANT DIARRHEA SOB Acute Shortness of Breath INT LAB AND RAD Reason for Visit Carotid artery, inte rnal, occlusion Asthma Oral thrush MARYJO (obstructive sleep apnea) Asthma Diarrhea Orthostatic hypotension Asthma Cough Dyspnea Moist mucous membranes of ear, nose, and throat MARYJO (obstructive sleep apnea) Chief Complaint 3 M FU PERSISTANT DIARRHEA PERSISTANT DIARRHEA PERSISTANT DIARRHEA PERSISTANT DIARRHEA PERSISTANT DIARRHEA SOB Acute Shortness of Breath INT LAB AND RAD [facility] E-ORDER 3 M FU INT LABS Reason for Visit Asthma MARYJO (obstructive sleep apnea) Asthma CAD (coronary artery disease) Diarrhea Orthostatic hypotension Cough Asthma MARYJO (obstructive sleep apnea) (HFpEF) heart failure with preserved ejection fraction CAD (coronary artery disease) Carotid artery disease COPD (chronic obstructive pulmonary disease) Hyperlipidemia Hypertension MARYJO (obstructive sleep apnea) Parkinson's disease Shortness of breath on exertion 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 artery Vocal cord dysfunction Asthma Diastolic dysfunction Hypoxia MARYJO (obstructive sleep apnea) Shortness of breath on exertion Chief Complaint Admit Date sob March 08, 2024 3 :25pm 4 M FU March 16, 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 6 M FU April 01, 2024 1:48pm INT LABS April 13, 2024 8:58am 4 M FU April 15, 2024 11:10am Reason for Visit Admit Date Parkinson's disease March 16, 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, 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 Carotid artery, internal, occlusion David batsheva 2024 11:36am CAD (coronary artery disease) March 212024 1:48pm Carotid artery disease April 01 1:48pm COPD (chronic obstructive pulmonary dise ase) April 01, 2024 1:48pm Hyperlipidemia April 01, 2024 1:48pm MARYJO (obstructive sleep apnea) March 212024 1:48pm 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, 2024 1:48pm 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 artery April 01 1:48pm Hypertension April 01, 2024 1:48pm Asthma-COPD overlap syndrome April 152024 11:10am MARYJO (obstructive sleep apnea) March 222024 11:10am Chief Complaint Admit Date sob March 08, 2024 3 :25pm 4 M FU March 16, 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 6 M FU April 01, 2024 1:48pm INT LABS April 13, 2024 8:58am 4 M FU April 15, 2024 11:10am ACUTE VISIT May 26, 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 8 WK FU May 27, 2024 1:45 pm RIGHT INTERNAL CAROTID ARTERY STENOSIS M ay 2024 12:58pm Reason for Visit Admit Date Parkinson's disease March 16, 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, 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 Carotid artery, internal, occlusion David herman 2024 11:36am CAD (coronary artery disease) March 212024 1:48pm Carotid artery disease April 01 1:48pm COPD (chronic obstructive pulmonary dise ase) April 01, 2024 1:48pm Hyperlipidemia April 01, 2024 1:48pm MARYJO (obstructive sleep apnea) March 212024 1:48pm 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, 2024 1:48pm 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 artery April 01 1:48pm Hypertension April 01, 2024 1:48pm Asthma-COPD overlap syndrome April 152024 11:10am MARYJO (obstructive sleep apnea) March 222024 11:10am Dysphagia May 26, 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 Parkinson's disease May 26, 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, 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 Carotid artery, internal, occlusion Apri l 2024 1:00pm Asthma-COPD overlap syndrome May 27, 2024 1:45pm MARYJO (obstructive sleep apnea) May 27, 2024 1:45pm Chief Complaint Admit Date sob March 08, 2024 3 :25pm 4 M FU March 16, 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 6 M FU April 01, 2024 1:48pm INT LABS April 13, 2024 8:58am 4 M FU April 15, 2024 11:10am ACUTE VISIT May 26, 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 8 WK FU May 27, 2024 1:45 pm RIGHT INTERNAL CAROTID ARTERY STENOSIS M ay 2024 12:58pm COPD June 29, 2024 10:41 am COPD July 02, 2024 12:31 pm Chief Complaint Admit Date 4 M FU March 16, 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 6 M FU April 01, 2024 1:48pm INT LABS April 13, 2024 8:58am 4 M FU April 15, 2024 11:10am ACUTE VISIT May 26, 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 8 WK FU May 27, 2024 1:45 pm RIGHT INTERNAL CAROTID ARTERY STENOSIS M ay 2024 12:58pm COPD June 29, 2024 10:41 am COPD July 02, 2024 12:31 pm COPD July 03, 2024 11:12 am Chief Complaint Admit Date 6 M FU April 01, 2024 1:48pm INT LABS April 13, 2024 8:58am 4 M FU April 15, 2024 11:10am ACUTE VISIT May 26, 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 8 WK FU May 27, 2024 1:45 pm RIGHT INTERNAL CAROTID ARTERY STENOSIS M ay 2024 12:58pm COPD June 29, 2024 10:41 am COPD July 02, 2024 12:31 pm COPD July 03, 2024 11:12 am DYSPHAGIA, July 10, 2024 12:56 pm 6-8 wk f u July 15, 2024 1:42p m Reason for Visit Admit Date CAD (coronary artery disease) March 212024 1:48pm Carotid artery disease April 01 1:48pm COPD (chronic obstructive pulmonary dise ase) April 01, 2024 1:48pm Hyperlipidemia April 01, 2024 1:48pm MARYJO (obstructive sleep apnea) March 212024 1:48pm 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, 2024 1:48pm 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 artery April 01 025 1:48pm Hypertension April 01, 2024 1:48pm Asthma-COPD overlap syndrome April 152024 11:10am MARYJO (obstructive sleep apnea) March 222024 11:10am Dysphagia May 26, 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 Parkinson's disease May 26, 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, 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 Carotid artery, internal, occlusion Apri l 2024 1:00pm Asthma-COPD overlap syndrome May 27, 2024 1:45pm MARYJO (obstructive sleep apnea) May 27, 2024 1:45pm Asthma-COPD overlap syndrome July 15, 2 025 1:42pm MARYJO (obstructive sleep apnea) July 15, 2024 1:42pm Chief Complaint Admit Date 6 M FU April 01, 2024 1:48pm INT LABS April 13, 2024 8:58am 4 M FU April 15, 2024 11:10am ACUTE VISIT May 26, 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 8 WK FU May 27, 2024 1:45 pm RIGHT INTERNAL CAROTID ARTERY STENOSIS M ay 2024 12:58pm COPD June 29, 2024 10:41 am COPD July 02, 2024 12:31 pm COPD July 03, 2024 11:12 am DYSPHAGIA, July 10, 2024 12:56 pm 6-8 wk f u July 15, 2024 1:42p m 2 M FU July 23, 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 Chief Complaint Admit Date INT LABS April 13, 2024 8:58am 4 M FU April 15, 2024 11:10am ACUTE VISIT May 26, 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 8 WK FU May 27, 2024 1:45 pm RIGHT INTERNAL CAROTID ARTERY STENOSIS M ay 2024 12:58pm COPD June 29, 2024 10:41 am COPD June 29, 2024 10:47 am COPD July 02, 2024 12:31 pm COPD July 03, 2024 11:12 am DYSPHAGIA, July 10, 2024 12:56 pm 6-8 wk f u July 15, 2024 1:42p m 2 M FU July 23, 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 SOB, WORSENING RESTRICION ON PFT August 042024 1:38pm Reason for Visit Admit Date Asthma-COPD overlap syndrome April 152024 11:10am MARYJO (obstructive sleep apnea) March 222024 11:10am Dysphagia May 26, 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 Parkinson's disease May 26, 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, 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 Carotid artery, internal, occlusion Apri l 2024 1:00pm Asthma-COPD overlap syndrome May 27, 2024 1:45pm MARYJO (obstructive sleep apnea) May 27, 2024 1:45pm Asthma-COPD overlap syndrome July 15 1:42pm MARYJO (obstructive sleep apnea) July 15, 2024 1:42pm Dysphagia July 23, 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 Parkinson's disease July 23, 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, 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 Carotid artery, internal, occlusion July 23, 2024 11:31am Chief Complaint Admit Date ACUTE VISIT May 26, 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 8 WK FU May 27, 2024 1:45 pm RIGHT INTERNAL CAROTID ARTERY STENOSIS M 2024 12:58pm COPD June 29, 2024 10:41 am COPD June 29, 2024 10:47 am COPD July 02, 2024 12:31 pm COPD July 03, 2024 11:12 am DYSPHAGIA, July 10, 2024 12:56 pm 6-8 wk f u July 15, 2024 1:42p m 2 M FU July 23, 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 SOB, WORSENING RESTRICION ON PFT August 042024 1:38pm 6 wk FU September 02, 2024 11:1 1am Reason for Visit Admit Date Parkinson's disease May 26, 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, 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 Carotid artery, internal, occlusion Apri l 2024 1:00pm Dysphagia May 26, 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 Asthma-COPD overlap syndrome May 27, 2024 1:45pm MARYJO (obstructive sleep apnea) May 27, 2024 1:45pm Asthma-COPD overlap syndrome July 15, 025 1:42pm MARYJO (obstructive sleep apnea) July 15, 2024 1:42pm Parkinson's disease July 23, 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, 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 Carotid artery, internal, occlusion July 23, 2024 11:31am Dysphagia July 23, 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 Family History Unknown Family Member Name Dates [...] Z82.5) Status:Active No Family History Records Found Relationship Condition Age at Onset Recorded Date/T mihir father Chronic obstructive pulmonary disease Unk nown Pulmonary emphysema Unknown Myocardial infarction Unknown mother Parkinson's disease Unknown Advance Directives No Advanced Directives Records Found Advance Directive Response Recorded Date/ Time Living Will Yes January 13, 021 7:03pm Power of Instructor Business Education Yes January 13, 2021 7:03pm Advance Directive Response Recorded Date/ Time Living Will Yes January 24 9:09am Power of Instructor Business Education Yes January 24, 2022 9:09am Name of Medical Power of Instructor Business Education KIKE JULIA January 24, 2022 9:09am Advance Directive Response Recorded Date/ Time Living Will Yes January 24 10:09am Power of Instructor Business Education Yes January 24, 2022 10:09am Name of Medical Power of Instructor Business Education KIKE JULIA January 24, 2022 10:09am Advance Directive Response Recorded Date/ Time Living Will Yes January 24 10:09am Power of Instructor Business Education Yes January 24, 2022 10:09am Advance Directive Response Recorded Date/ Time Living Will Yes January 24 9:09am Power of Instructor Business Education Yes January 24, 2022 9:09am Advance Directive Response Recorded Date/ Time Living Will No March 16 10:03am Power of Instructor Business Education No March 16, 2023 10:03am Advance Directive Response Recorded Date/ Time Living Will No March 16 3:20pm Power of Instructor Business Education No March 16, 2023 3:20pm Advance Directive Response Recorded Date/ Time Name of Medical Power of Instructor Business Education spouse May 03, 2023 10:19am Living Will Yes May 03, 2023 10:19am Power of Instructor Business Education Yes May 02 10:19am Date Activated Date Inactivated Comments 09/02/2023 1:35 PM Date Activated Date Inactivated Comments 09/02/2023 1:35 PM Advance Directive Response Recorded Date/ Time Living Will No October 27, 024 3:19pm Power of Instructor Business Education No October 28, 2023 3:19pm Living Will Yes October 29, 2023 9:10pm Power of Instructor Business Education Yes October 9:10pm Living Will Yes March 08 3:50pm Power of Instructor Business Education Yes March 08, 2024 3:50pm Name of Medical Power of Instructor Business Education Machelle Cole March 08, 2024 3:50pm Advance Directive Response Recorded Date/ Time Living Will No October 27 4:19pm Do you have a Healthcare Pow er of Instructor Business Education? No October 28, 2023 4:19pm Living Will Yes October 29, 2023 10:10pm Do you have a Healthcare Pow er of Instructor Business Education? Yes October 29, 2023 10:10pm Living Will Yes March 08 4:50pm Do you have a Healthcare Pow er of Instructor Business Education? Yes March 08, 2024 4:50pm Name of Medical Power of Instructor Business Education Machelle Cole March 08, 2024 4:50pm Advance Directive Response Recorded Date/ Time Living Will No October 27 024 4:19pm Do you have a Healthcare Power of Instructor Business Education? No October 28, 2023 4:19pm Living Will Yes October 29, 2023 10:10pm Do you have a Healthcare Power of Instructor Business Education? Yes October 29, 2023 10:10pm Advance Directive Response Recorded Date/ Time Living Will No October 27 4:19pm Do you have a Healthcare Power of Instructor Business Education? No October 28, 2023 4:19pm Summary Purpose Additional Source Comments <item> Privacy Markings (unrecogniz ed section and content) Section Author: [place] [employer] PROHIBITION ON REDISCLOSURE OF CONFIDENTIAL INFORMATION This notice accompanies a disclosure of information concerning a client made to you with the consent of such client. Goals (unrecognized section and content) Goals may be documented in a n alternate sectionGoals may be documented in an alternate sectionGoals may be documented in an alternate sectionGoals may be documented in an alternate sectionGoals may be documented in an alternate sectionGoals may be documented in an alternate sectionGoals may be documented in an alternate sectionGoals may be documented in an alternate sectionGoals may be documented in an alternate sectionGoals may be documented in an alternate sectionGoals may be documented in an alternate sectionGoals may be documented in an alternate sectionGoals may be documented in an alternate sectionGoals may be documented in an alternate sectionGoals may be documented in an alternate sectionGoals may be documented in an alternate sectionGoals may be documented in an alternate sectionGoals may be documented in an alternate sectionGoals may be documented in an alternate sectionGoals may be documented in an alternate sectionGoals may be documented in an alternate sectionGoals may be documented in an alternate sectionGoals may be documented in an alternate sectionGoals may be documented in an alternate sectionGoals may be documented in an alternate sectionGoals may be documented in an alternate section (unrecognized sect ion and content) No Status Records FoundNo Status Records FoundNo Status Records FoundNo Status Records FoundNo Status Records FoundNo Status Records FoundNo Status Records FoundNo Status Records FoundNo Status Records Found INFORMATION SOURCE (unrecogn ized section and content) DATE CREATED AUTHOR 10/28/2021 [facility] DATE CREATED AUTHOR AUTHOR'S ORGANIZ ATION 12/13/2021 [facility] DATE CREATED AUTHOR AUTHOR'S ORGANIZ ATION 09/26/2022 [employer] DATE CREATED AUTHOR AUTHOR'S ORGANIZ ATION 03/29/2023 [facility] DATE CREATED AUTHOR AUTHOR'S ORGANIZ ATION 03/31/2023 [facility] DATE CREATED AUTHOR AUTHOR'S ORGANIZ ATION 05/30/2023 [facility] DATE CREATED AUTHOR AUTHOR'S ORGANIZ ATION 03/10/2024 [facility] DATE CREATED AUTHOR AUTHOR'S ORGANIZ ATION 06/27/2024 [facility] DATE CREATED AUTHOR AUTHOR'S ORGANIZ ATION 09/04/2024 [facility] Care Teams (unrecognized sec tion and content) Team Status: Active Member Role Status Dates Dr. Biju Lobo DO Family Provider Active Dr. Biju Lobo DO Primary Care Provider Active Team Status: Inactive Member Role Status Dates Dr. Biju Lobo , Primary Care Provider Active Vega Vera MD Attending Provider, Emergency Provid er Active Team Status: Inactive Member Role Status Dates Dr. Biju Lobo , DO Primary Care Provider Active Dr. Cinthia Trammell II, MD Attending Provider, Referring Pro vider Active Team Status: Inactive Member Role Status Dates Dr. Biju Lobo , DO Primary Care Provider Active GUILLERMO ROONEY Attending Provider Active Team Status: Inactive Member Role Status Dates Dr. Biju Lobo , DO Primary Care Prov ider, Attending Provider, Referring Provider Active Team Status: Active Member Role Status Dates Dr. Biju Lobo , DO Primary Care Provider, Other Pr ovider Active Dr. Wolfgang Shetty DO Attending Provider Active Team Status: Inactive Member Role Status Dates Dr. iBju Lobo , DO Primary Care Provider, Attendin g Provider Active Team Status: Active Member Role Status Dates Dr. Biju Lobo , DO Primary Care Prov ider, Referring Provider, Other Provider Active Dr. Wolfgang Shetty DO Attending Provider Active Team Status: Inactive Member Role Status Dates Dr. Biju Lobo DO Primary Care Provider Active Dr. Christian Hernandez MD Attending Provider, Referring Provider Active Team Status: Inactive Member Role Status Dates Dr. Biju Lobo DO Primary Care Provider Active Dr. Christian Hernandez MD Attending Provider, Referring Provider Active GUILLERMO ROONEY Other Provider Active Team Status: Inactive Member Role Status Dates Dr. Biju Lobo DO Primary Care Provider, Referrin g Provider Active Dr. German Nayak MD Attending Provider Active Team Status: Active Member Role Status Dates Dr. Biju Lobo DO Primary Care Prov ider, Referring Provider, Other Provider Active Dr. Bobby Shetty DO Attending Provider Active Team Status: Active Member Role Status Dates Dr. Biju Lobo DO Primary Care Provider Active Dr. German Nayak MD Referring Provider, Other Provid er Active Dr. Jasson Deng MD Attending Provider Active Team Status: Inactive Member Role Status Dates Dr. Biju Lobo DO Primary Care Provider Active Dr. German Nayak MD Attending Provider, Referring Pr ovider Active Team Status: Active Member Role Status Dates Dr. Biju Lobo DO Primary Care Provider Active Dr. German Nayak MD Referring Provider, Other Provid er Active Dr. Richard Munoz DO Attending Provider Active Team Status: Inactive Member Role Status Dates Dr. Biju Lobo , DO Primary Care Provider, Referrin g Provider Active Dr. Christian Hernandez MD Attending Provider Active Team Status: Inactive Member Role Status Dates Dr. Biju Lobo , DO Primary Care Provider, Referrin g Provider Active Karen Lora COMMERCIAL DESIGNER, COMMERCIAL DESIGNER-C Attending Provider Active Team Status: Inactive Member Role Status Dates Dr. Biju Lobo , DO Primary Care Provider Active Karen Lora COMMERCIAL DESIGNER, COMMERCIAL DESIGNER-C Attending Provider, Referrin g Provider Active Team Status: Inactive Member Role Status Dates Dr. Biju Lobo , DO Primary Care Provider Active Karen Lora COMMERCIAL DESIGNER, COMMERCIAL DESIGNER-C Attending Provider Active Team Status: Active Member Role Status Dates Dr. Biju Lobo , DO Primary Care Provider Active Dr. Harrison Macario MD Attending Provider Active Team Status: Active Member Role Status Dates Dr. Biju Lobo , DO Primary Care Provider Active Dr. Harrison Macario MD Attending Provider Active Dr. Christian Hernandez MD Referring Provider Active Team Status: Active Member Role Status Dates Dr. Biju Lobo DO Primary Care Provider Active Dr. Moses Grady DO Emergency Provider Active Dr. Delfin Russell MD Admit Provider, Attending Provi fareed Active Team Status: Active Member Role Status Dates Dr. Biju Lobo DO Primary Care Provider Active Dr. Moses Grady DO Emergency Provider Active Dr. Delfin Russell MD Admit Provider, Other Provider Active Dr. Ravinder Beauchamp DO Attending Provider Active Team Status: Active Member Role Status Dates Dr. Biju Lobo DO Primary Care Provider Active Dr. Moses Grady DO Emergency Provider Active Dr. Delfin Russell MD Admit Provider, A ttending Provider, Other Provider Active Team Status: Active Member Role Status Dates Dr. Biju Lobo DO Primary Care Provider Active Dr. Ravinder Beauchamp DO Attending Provider Active Team Status: Active Member Role Status Dates Dr. Biju Lobo DO Primary Care Provider Active Dr. Moses Grady DO Emergency Provider Active Dr. Delfin Russell MD Admit Provider, Other Provider Active Dr. Harrison Spears DO Attending Provider, Other Provid er Active Team Status: Inactive Member Role Status Dates Dr. Biju Lobo , DO Primary Care Provider Active Dr. Moses Grady DO Emergency Provider Active Dr. Delfin Russell MD Admit Provider, Other Provider Active Dr. Harrison Jopperi , DO Attending Provider Active Team Status: Active Member Role Status Dates Dr. Biju Lobo , DO Primary Care Provider Active Dr. Moses Grady , DO Emergency Provider Active Dr. Delfin Russell MD Admit Provider, Other Provider Active Dr. Ravinder Beauchamp , DO Attending Provider Active Dr. Harrison Spears , DO Referring Provider Active Team Status: Active Member Role Status Dates Dr. Biju Lobo , DO Primary Care Provider Active Dr. Ravinder Beauchamp , DO Attending Provider Active Dr. Harrison Spears , DO Referring Provider Active Team Status: Inactive Member Role Status Dates Dr. Biju Lobo , DO Primary Care Provider Active Dr. Jayson Miramontes , DO Emergency Provider Active Team Status: Inactive Member Role Status Dates Dr. Biju Lobo , DO Primary Care Provider Active Dr. Jayson Miramontes , DO Attending Provider, Emergency Provider Active Team Status: Inactive Member Role Status Dates Dr. Biju Lobo , DO Primary Care Provider Active Dr. Cinthia Trammell II, MD Attending Provider Active Team Status: Active Member Role Status Dates Dr. Biju Lobo , Primary Care Provider Active Karen Lora COMMERCIAL DESIGNER, COMMERCIAL DESIGNER-C Attending Provider, Referrin g Provider Active Breaker Mechanic Relationship Specialty Start Date End Date Biju Lobo DO PCP - General 01/25/21 Biju Lobo DO [address] [place] [phone] PCP - MMO ACO PCP 02/18/23 Team Status: Inactive Member Role Status Dates Dr. Biju Lobo DO Primary Care Provider, Referrin g Provider Active Dr. Gilbert Hoang MD Attending Provider Active Team Status: Active Member Role Status Dates Dr. Biju Lobo DO Primary Care Provider Active Brenda Coker COMMERCIAL DESIGNER, COMMERCIAL DESIGNER-C Attending Provider, Referring P rowilly Active Dr. Gilbert Hoang MD Other Provider Active Team Status: Inactive Member Role Status Dates Dr. Biju Lobo DO Primary Care Provider Active Dr. Gilbert Hoang MD Attending Provider, Referring Pr ovider Active Breaker Mechanic Relationship Specialty Start Date End Date Yamil Biju DO Teresa [address] [place] [address] [place] [address] PCP - General Family Medicine 06/28/23 Jamie Grijalva MD [address] [place], [place] [id number] Referring Provider Otolaryngology 07/03/23 Breaker Mechanic Relationship Specialty Start Date End Date YamilBiju wassermanDO [address] [place] [address] [place] [address] PCP - General Family Medicine 06/28/23 09/02/23 Gilbert Hoang MD [address] [place], [place] [id number] PCP - Referring 1 Cardiovascular Disease 09/03/23 Biju Lobo DO [address] [place] [address] [place] [address] PCP - General Family Medicine 09/03/23 Jamie Grijalva MD [address] [place], [place] [id number] Referring Provider Otolaryngology 07/03/23 Breaker Mechanic Relationship Specialty Start Date End Date Gilbert Hoang MD [address] [place], [place] [id number] PCP - Referring 1 Cardiovascular Disease 09/03/23 Biju Lobo DO [address] [place] [address] [place] [address] PCP - General Family Medicine 09/03/23 Jamie Grijalva MD [address] [place], [place] [address] Referring Provider Otolaryngology 07/03/23 Breaker Mechanic Relationship Specialty Start Date End Date Gilbert Hoang MD [address] [address] PCP - Referring 1 Cardiovascular Disease 09/03/23 Biju Lobo DO [address] [place] [phone] PCP - General Family Medicine 09/03/23 Jamie Grijalva MD [address] [place], [place] [address] Referring Provider Otolaryngology 07/03/23 Breaker Mechanic Relationship Specialty Start Date End Date Biju Lobo DO PCP - General 01/25/21 Breaker Mechanic Relationship Specialty Start Date End Date Gilbert Hoang MD [address] [address] PCP - Referring 1 Cardiovascular Disease 09/03/23 Biju Lobo DO [address] [place] [phone] PCP - General Family Medicine 09/03/23 Jamie Grijalva MD [address] [place], [place] [phone] Referring Provider Otolaryngology 07/03/23 Team Status: Active Member Role Status Dates Dr. Biju Lobo DO Primary Care Provider Active Team Status: Inactive Member Role Status Dates Dr. Biju Lobo DO Primary Care Provider Active Start: March 08, 2024 End: March 08, 2024 Dr. Ramos Randall MD Attending Provider Active Start: March 08, 2024 End: March 08, 2024 Dr. Ramos Randall MD Emergency Provider Active Start: March 08, 2024 End: March 08, 2024 Team Status: Inactive Member Role Status Dates Dr. Biju Lobo DO Primary Care Provider Active Start: March 16, 2024 End: March 16, 2024 Dr. Biju Lobo DO Referring Provider Active Start: March 16, 2024 End: March 16, 2024 Dr. Christian Hernandez MD Attending Provider Active Start: March 16, 2024 End: March 16, 2024 Team Status: Inactive Member Role Status Dates Dr. Biju Lobo DO Primary Care Provider Active Start: March 24, 2024 End: March 24, 2024 Dr. Akbar Archuleta MD Attending Provider Active Start: March 24, 2024 End: March 24, 2024 Dr. Akbar Archuleta MD Referring Provider Active Start: March 24, 2024 End: March 24, 2024 Team Status: Inactive Member Role Status Dates Dr. Biju Lobo DO Primary Care Provider Active Start: April 01, 2024 End: April 01, 2024 Dr. Biju Lobo DO Referring Provider Active Start: April 01, 2024 End: April 01, 2024 Dr. Gilbert Hoang MD Attending Provider Active Start: April 01, 2024 End: April 01, 2024 Team Status: Inactive Member Role Status Dates Dr. Biju Lobo DO Primary Care Provider Active Start: April 13, 2024 End: April 13, 2024 Dr. Gilbert Hoang MD Attending Provider Active Start: April 13, 2024 End: April 13, 2024 Dr. Gilbert Hoang MD Referring Provider Active Start: April 13, 2024 End: April 13, 2024 Team Status: Inactive Member Role Status Dates Dr. Biju Lobo DO Primary Care Provider Active Start: April 15, 2024 End: April 15, 2024 Dr. Biju Lobo DO Referring Provider Active Start: April 15, 2024 End: April 15, 2024 HUMBERTO CastrejonC Attending Provider Active Start: April 15, 2024 End: April 15, 2024 Breaker Mechanic Relationship Specialty Start Date End Date Gilbert Hoang MD [address] [facility] [address] [address] PCP - Referring 1 Cardiovascular Disease 09/03/23 Biju Lobo DO [address] [address] PCP - General Family Medicine 09/03/23 Jamie Grijalva MD [address] [place] [address] Referring Provider Otolaryngology 07/03/23 Team Status: Inactive Member Role Status Dates Dr. Biju Lobo DO Primary Care Provider Active Start: May 26, 2024 End: May 26, 2024 Dr. Biju Lobo DO Referring Provider Active Start: May 26, 2024 End: May 26, 2024 Dr. Christian Hernandez MD Attending Provider Active Start: May 26, 2024 End: May 26, 2024 Team Status: Inactive Member Role Status Dates Dr. Biju Lobo DO Primary Care Provider Active Start: May 27, 2024 End: May 27, 2024 Dr. Biju Lobo DO Referring Provider Active Start: May 27, 2024 End: May 27, 2024 MAHAMED Castrejon Attending Provider Active Start: May 27, 2024 End: May 27, 2024 Team Status: Inactive Member Role Status Dates Dr. Biju Lobo DO Primary Care Provider Active Start: June 22, 2024 End: June 22, 2024 Dr. Christian Hernandez MD Attending Provider Active Start: June 22, 2024 End: June 22, 2024 Dr. Christian Hernandez MD Referring Provider Active Start: June 22, 2024 End: June 22, 2024 Team Status: Active Member Role Status Dates Dr. Biju Lobo DO Primary Care Provider Active Start: June 22, 2024 Dr. Harrison Macario MD Attending Provider Active S tart: June 22, 2024 Team Status: Active Member Role Status Dates Dr. Biju Lobo DO Primary Care Provider Active Start: June 22, 2024 Dr. Harrison Macario MD Attending Provider Active S tart: June 22, 2024 Dr. Christian Hernandez MD Referring Provider Active Start: June 22, 2024 Team Status: Inactive Member Role Status Dates Dr. Biju Lobo DO Primary Care Provider Active Start: June 29, 2024 End: June 29, 2024 Tita Wick COMMERCIAL DESIGNER-C Attending Provider Active Start: June 29, 2024 End: June 29, 2024 Tita Wick COMMERCIAL DESIGNER-C Referring Provider Active Start: June 29, 2024 End: June 29, 2024 Team Status: Active Member Role Status Dates Dr. Biju Lobo DO Primary Care Provider Active Start: July 02, 2024 Tita Wick COMMERCIAL DESIGNER-C Attending Provider Active Start: July 02, 2024 Tita Wick COMMERCIAL DESIGNER-C Referring Provider Active Start: July 02, 2024 Team Status: Inactive Member Role Status Dates Dr. Biju Lobo DO Primary Care Provider Active Start: July 02, 2024 End: July 02, 2024 Tita Wick COMMERCIAL DESIGNER-C Attending Provider Active Start: July 02, 2024 End: July 02, 2024 Tita Wick COMMERCIAL DESIGNER-C Referring Provider Active Start: July 02, 2024 End: July 02, 2024 Team Status: Active Member Role Status Dates Dr. Biju Lobo DO Primary Care Provider Active Start: July 03, 2024 Tita Wick COMMERCIAL DESIGNER-C Referring Provider Active Start: July 03, 2024 Tita Wick COMMERCIAL DESIGNER-C Other Provider Active St art: July 03, 2024 Dr. Richard Munoz DO Attending Provider Active S tart: July 03, 2024 Team Status: Active Member Role Status Dates Dr. Biju Lobo DO Primary Care Provider Active Start: July 10, 2024 Dr. Christian Hernandez MD Attending Provider Active Start: July 10, 2024 Dr. Christian Hernandez MD Referring Provider Active Start: July 10, 2024 Team Status: Inactive Member Role Status Dates Dr. Biju Lobo DO Primary Care Provider Active Start: July 15, 2024 End: July 15, 2024 Dr. Biju Lobo DO Referring Provider Active Start: July 15, 2024 End: July 15, 2024 HUMBERTO CastrejonC Attending Provider Active Start: July 15, 2024 End: July 15, 2024 Team Status: Inactive Member Role Status Dates Dr. Biju Lobo DO Primary Care Provider Active Start: July 10, 2024 End: July 10, 2024 Dr. Christian Hernandez MD Attending Provider Active Start: July 10, 2024 End: July 10, 2024 Dr. Christian Hernandez MD Referring Provider Active Start: July 10, 2024 End: July 10, 2024 Team Status: Inactive Member Role Status Dates Dr. Biju Lobo DO Primary Care Provider Active Start: July 23, 2024 End: July 23, 2024 Dr. Biju Lobo DO Referring Provider Active Start: July 23, 2024 End: July 23, 2024 Dr. Christian Hernandez MD Attending Provider Active Start: July 23, 2024 End: July 23, 2024 Team Status: Active Member Role Status Dates Dr. Biju Lobo DO Primary Care Provider Active Start: June 29, 2024 Dr. Richard Munoz DO Attending Provider Active S tart: June 29, 2024 MAHAMED Castrejon Referring Provider Active Start: June 29, 2024 Team Status: Inactive Member Role Status Dates Dr. Biuj Lobo DO Primary Care Provider Active Start: August 04, 2024 End: August 04, 2024 Tita Wick NP-C Attending Provider Active Start: August 04, 2024 End: August 04, 2024 MAHAMED Castrejon Referring Provider Active Start: August 04, 2024 End: August 04, 2024 Team Status: Active Member Role/Relationship Status Dates Dr. Biju Lobo DO Primary Care Provider Active Team Status: Inactive Member Role/Relationship Status Dates Dr. Biju Lobo DO Primary Care Provider Active Start: May 26, 2024 End: May 26, 2024 Dr. Biju Lobo DO Referring Provider Active Start: May 26, 2024 End: May 26, 2024 Dr. Christian Hernandez MD Attending Provider Active Start: May 26, 2024 End: May 26, 2024 Team Status: Inactive Member Role/Relationship Status Dates Dr. Biju Lobo DO Primary Care Provider Active Start: May 27, 2024 End: May 27, 2024 Dr. Biju Lobo DO Referring Provider Active Start: May 27, 2024 End: May 27, 2024 HUMBERTO CastrejonC Attending Provider Active Start: May 27, 2024 End: May 27, 2024 Team Status: Inactive Member Role/Relationship Status Dates Dr. Biju Lobo DO Primary Care Provider Active Start: June 22, 2024 End: June 22, 2024 Dr. Christian Hernandez MD Attending Provider Active Start: June 22, 2024 End: June 22, 2024 Dr. Christian Hernandez MD Referring Provider Active Start: June 22, 2024 End: June 22, 2024 Team Status: Active Member Role/Relationship Status Dates Dr. Biju Lobo DO Primary Care Provider Active Start: June 22, 2024 Dr. Harrison Macario MD Attending Provider Active S tart: June 22, 2024 Dr. Christian Hernandez MD Referring Provider Active Start: June 22, 2024 Team Status: Inactive Member Role/Relationship Status Dates Dr. Biju Lobo DO Primary Care Provider Active Start: June 29, 2024 End: June 29, 2024 MAHAMED Castrejon Attending Provider Active Start: June 29, 2024 End: June 29, 2024 MAHAMED Castrejon Referring Provider Active Start: June 29, 2024 End: June 29, 2024 Team Status: Active Member Role/Relationship Status Dates Dr. Biju Lobo DO Primary Care Provider Active Start: June 29, 2024 Dr. Richard Munoz DO Attending Provider Active S tart: June 29, 2024 Tita M Rufener , COMMERCIAL DESIGNER-C Referring Provider Active Start: June 29, 2024 Team Status: Inactive Member Role/Relationship Status Dates Dr. Biju Lobo DO Primary Care Provider Active Start: July 02, 2024 End: July 02, 2024 Tita Wick NP-C Attending Provider Active Start: July 02, 2024 End: July 02, 2024 Tita Wick NP-C Referring Provider Active Start: July 02, 2024 End: July 02, 2024 Team Status: Active Member Role/Relationship Status Dates Dr. Biju Lobo DO Primary Care Provider Active Start: July 03, 2024 Tita Wick NP-C Referring Provider Active Start: July 03, 2024 HUMBERTO CastrejonC Other Provider Active St art: July 03, 2024 Dr. iRchard Munoz DO Attending Provider Active S tart: July 03, 2024 Team Status: Inactive Member Role/Relationship Status Dates Dr. Biju Lobo DO Primary Care Provider Active Start: July 10, 2024 End: July 10, 2024 Dr. Christian Hernandez MD Attending Provider Active Start: July 10, 2024 End: July 10, 2024 Dr. Christian Hernandez MD Referring Provider Active Start: July 10, 2024 End: July 10, 2024 Team Status: Inactive Member Role/Relationship Status Dates Dr. Biju Lobo DO Primary Care Provider Active Start: July 15, 2024 End: July 15, 2024 Dr. Biju Lobo DO Referring Provider Active Start: July 15, 2024 End: July 15, 2024 Tita Wick NP-C Attending Provider Active Start: July 15, 2024 End: July 15, 2024 Team Status: Inactive Member Role/Relationship Status Dates Dr. Biju Lobo DO Primary Care Provider Active Start: July 23, 2024 End: July 23, 2024 Dr. Biju Lobo DO Referring Provider Active Start: July 23, 2024 End: July 23, 2024 Dr. Christian Hernandez MD Attending Provider Active Start: July 23, 2024 End: July 23, 2024 Team Status: Inactive Member Role/Relationship Status Dates Dr. Biju Lobo DO Primary Care Provider Active Start: August 04, 2024 End: August 04, 2024 MAHAMED Castrejon Attending Provider Active Start: August 04, 2024 End: August 04, 2024 MAHAMED Castrejon Referring Provider Active Start: August 04, 2024 End: August 04, 2024 Team Status: Inactive Member Role/Relationship Status Dates Dr. Biju Lobo DO Primary Care Provider Active Start: September 02, 2024 End: September 02, 2024 Dr. Biju Lobo DO Referring Provider Active Start: September 02, 2024 End: September 02, 2024 Dr. Richard Munoz DO Attending Provider Active S tart: September 02, 2024 End: September 02, 2024 Reason for Visit (unrecogniz ed section and content) Reason Comments Trach Change Specialty Diagnoses / Procedures Referred By Contac t Referred To Contact Otolaryngology Diagnoses ret 3 mo f/u, trach change [id number] Procedures RETURN PATIENT W/ SCOPE Biju Lobo DO [address] [address] Phone: tel: fax: Abbie Galvan MD [address] [facility] [address] [place] [address] Phone: tel: fax: Referral ID Status Reason Start Date Expiration Date V isits Requested Visits Authorized [id number] New Request 06/24/2024 07/19/2025 1 1 Reason Comments Yearly w/ PSA Reason Comments Breathing Problem Specialty Diagnoses / Procedures Referred By Contac t Referred To Contact Voice & Swallowing Diagnoses Bilateral vocal cord paralysis Stridor Dysphonia Jamie Grijalva MD [address] [place] [address] [facility] [address] [place] [address] Referral ID Status Reason Start Date Expiration Date V isits Requested Visits Authorized [id number] New Request 07/02/2023 07/26/2024 1 1 Specialty Diagnoses / Procedures Referred By Contac t Referred To Contact Diagnoses 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] Procedures ND TRACHEOSTOMY PLANNED SEPARATE PROCEDURE TRACHEOSTOMY Abbie Galvan MD [address] [place] [address] [facility] [address] [place] [address] Referral ID Status Reason Start Date Expiration Date Visits Re quested Visits Authorized [id number] 1 1 Reason Comments Post Op Visit Reason Comments Blood in Urine Scheduled Active and Recently Administ ered Medications (unrecognized section and content) Medication Order 09/05/2023 09/06/2023 09/07/2023 aspirin chewable tablet 81 mg 81 mg, Oral, DAILY, First dose on Sat09/03/23 at 0900, Until Discontinued 08 (Given - Provider: David Caruso RN) 0832 (Given - Provider: Reyna Baltaazr RN) 0826 (Given - Provider: Reyna Baltazar RN) budesonide-glycopyrrola te-Formoterol (BREZTRI) 160-9-4.8 MCG/ACT inhaler 2 puff 2 puff, Inhalation, 2 TIMES DAILY, First dose on Sat09/03/23 at 1800, Until Discontinued 0759 (Given - Provider: Shirley Hendrix RCP)2100 (Canceled Entry - Provider: System Discharge - Comment: Automatically canceled at discontinue of medication order) 1028 (Given - Provider: Angelica Conley, Limited Permit Chu)2015 (Given - Provider: Cayetano Lundberg, Limited Permit Chu) 0855 (Given - Provider: Iona Dickinson, Limited Permit Chu) Carbidopa-levodopa (SINEMET) 25-100 MG per tablet 2 tablet 2 tablet, Oral, 3 TIMES DAILY, First dose on Sat09/02/23 at 1600, Until Discontinued 08 (Given - Provider: David Caruso RN)1557 (Given - Provider: David Caruso RN)204 (Given - Provider: Rudy Medley RN) 0832 (Given - Provider: Reyna Baltazar RN)1420 (Given - Provider: Reyna Baltazar RN)2009 (Given - Provider: Hoang Gonzalez RN) 0825 (Given - Provider: Reyna Baltazar RN) Ciprofloxacin-dexAMETHa sone (CIPRODEX) otic suspension 4 drop 4 drop, Tracheal Tube, 2 TIMES DAILY, First dose on Sat09/05/23 at 0900, Until Discontinued, Shake well prior to use. For administration in the EAR or TRACHEAL TUBE only - refer to ordered route. 1149 (Given - Provider: David Caruso RN)2043 (Given - Provider: Rudy Medley RN) 0838 (Given - Provider: Reyna Baltazar RN)1702 (Given - Provider: Reyna Baltazar RN) 0830 (Given - Provider: Reyna Baltazar RN) Clopidogrel (PLAVIX) tablet 75 mg 75 mg, Oral, DAILY, First dose on Sat09/03/23 at 0900, Until Discontinued 0837 (Given - Provider: David Caruso RN) 0832 (Given - Provider: Reyna Baltazar RN) 0825 (Given - Provider: Reyna Baltazar RN) Enoxaparin Sodium (LOVENOX) injection 40 mg 40 mg, Subcutaneous, EVERY 24 HOURS, First dose on Sat09/03/23 at 0900, Until Discontinued, For SUBCUTANEOUS route ONLY: alternate injection sites between left and right abdominal wall, pinching location and avoiding area around navel. If unable to use abdominal sites, may use the front or side of thighs., Indications: DVT/PE prophylaxis 0822 (Given - Provider: David Caruso RN) 0832 (Given - Provider: Reyna Baltazar RN) 0830 (Not Given - Provider: Reyna Baltazar RN - Reason: Patient/family refused - Comment: Patient scheduled to discharge) Ezetimibe (ZETIA) 10 mg 10 mg, Oral, DAILY, First dose on Sat09/03/23 at 0900, Until Discontinued 0822 (Given - Provider: David Caruso RN) 0832 (Given - Provider: Reyna Baltazar RN) 0828 (Given - Provider: Reyna Baltazar RN) furOSEmide (LASIX) tablet 40 mg 40 mg, Oral, DAILY, First dose on Sat09/03/23 at 0900, Until Discontinued 1202 (Given - Provider: David Caruso RN) 0832 (Given - Provider: Reyna Baltazar RN) 08 (Given - Provider: Reyna Baltazar RN) Levothyroxine (SYNTHROID) tablet 150 mcg 150 mcg, Oral, DAILY BEFORE BREAKFAST, First dose on Sat09/03/23 at 0600, Until Discontinued 0515 (Given - Provider: Gabrielle Conte, RN) 0548 (Given - Provider: Rudy Medley, RN) 0537 (Given - Provider: Hoang Gonzalez, JAZIEL) Metoprolol succinate (TOPROL-XL) tablet XL 12.5 mg 12.5 mg, Oral, DAILY, First dose on Sat09/03/23 at 0900, Until Discontinued, Slow release product. Do not crush. Extended release can be cut in half. 822 (Given - Provider: David Caruso RN) 08 (Given - Provider: Reyna Baltazar RN) 08 (Given - Provider: Reyna Baltazar RN) Pantoprazole (PROTONIX) tablet DR 40 mg 40 mg, Oral, DAILY, First dose on Sat09/03/23 at 0900, Until Discontinued, Swallow whole; do not crush or chew., Indications: Continuation of Home Therapy 822 (Given - Provider: David Caruso RN) 08 (Given - Provider: Reyna Baltazar RN) 08 (Given - Provider: Reyna Baltazar RN) Rosuvastatin (CRESTOR) tablet 5 mg 5 mg, Oral, DAILY, First dose on Sat09/03/23 at 0900, Until Discontinued 822 (Given - Provider: David Caruso RN) 08 (Given - Provider: Reyna Baltazar RN) 0828 (Given - Provider: Reyna Baltazar RN) Senna (SENOKOT) tablet 8.6 mg(Linked Group 1) 8.6 mg, Oral, DAILY, First dose on Sat09/03/23 at 0900, Until Discontinued 822 (Given - Provider: David Caruso RN) 0832 (Given - Provider: Reyna Baltazar RN) 0825 (Given - Provider: Reyna Baltazar RN) Senna (SENOKOT) tablet 8.6 mg(Linked Group 1) 8.6 mg, Per NG tube, DAILY, First dose on Sat09/03/23 at 0900, Until Discontinued 0823 (See Alternative - Provider: David Caruso RN) 0832 (See Alternative - Provider: Reyna Baltazar, JAZIEL) 0825 (See Alternative - Provider: Reyna Baltazar, JAZIEL) Tamsulosin HCl (FLOMAX) capsule 0.4 mg 0.4 mg, Oral, DAILY, First dose on Sat09/03/23 at 0900, Until Discontinued, Slow release product. Do not chew or crush 0823 (Given - Provider: David Caruso RN) 0832 (Given - Provider: Reyna Baltazar, JAZIEL) 0826 (Given - Provider: Reyna Baltazar, JAZIEL) PRN Medication Order 09/05/2023 09/06/2023 09/07/2023 Acetaminophen (TYLENOL) oral solution 650 mg(Linked Group 2) 650 mg, Per NG tube, EVERY 4 HOURS NEEDED, Starting on Sat09/02/23 at 2035, Until 09/07/23 at 1332, Mild Pain, Oral temp > 100.4 F, Maximum dose of acetaminophen is 4000 mg from all sources in 24 hours. Acetaminophen (TYLENOL) suppository 650 mg(Linked Group 2) 650 mg, Rectal, EVERY 4 HOURS NEEDED, Starting on Sat09/02/23 at 2035, Until 09/07/23 at 1332, Oral temp > 100.4 F, Mild Pain, Maximum dose of acetaminophen is 4000 mg from all sources in 24 hours. Acetaminophen (TYLENOL) tablet 650 mg(Linked Group 2) 650 mg, Oral, EVERY 4 HOURS NEEDED, Starting on Sat09/02/23 at 2035, Until 09/07/23 at 1332, Mild Pain, Oral temp > 100.4 F, Maximum dose of acetaminophen is 4000 mg from all sources in 24 hours. Albuterol inhaler 1 puff 1 puff, Inhalation, EVERY 8 HOURS NEEDED, Starting on Sat09/02/23 at 1556, Until 09/07/23 at 1332, Shortness of Breath, Wait at least one(1) full minute between inhalations hydrALAZINE (APRESOLINE) injection 10 mg 10 mg, Intravenous, EVERY 6 HOURS NEEDED, Starting on Sat09/02/23 at 2035, Until 09/07/23 at 1332, SBP > 160 mmHg with HR <60 bpm 0358 (Given - Provid er: Hoang Gonzalez RN) Ipratropium-albuterol (DUONEB) 0.5-2.5 (3) MG/3ML nebulizer solution 3 mL 3 mL, Nebulization, EVERY 4 HOURS NEEDED, Starting on Sat09/02/23 at 1557, Until 09/07/23 at 1332, Shortness of Breath labetalol (NORMODYNE) 10 mg in Sodium chloride 0.9%, with overfill 62 mL (total volume) IVPB 10 mg, Intravenous, at 248 mL/hr, Administer over 15 Minutes, EVERY 6 HOURS NEEDED, Starting on Sat09/02/23 at 2035, Until 09/07/23 at 1332, SBP > 160 mmHg with HR >60 bpm, Hold for HR < 60 BPM. Magnesium hydroxide (concentrate) (MILK OF MAGNESIA) oral suspension 10 mL 10 mL, Oral, EVERY 24 HOURS NEEDED, Starting on Sat09/02/23 at 2035, Until 09/07/23 at 1332, Other, If no Bowel Movement in 72 hours in addition to exisitng regimen., 10 mL concentrate = 30 mL regular 1202 (Given - Provider: David Caruso RN) Melatonin tablet 6 mg 6 mg, Oral, DAILY AT BEDTIME NEEDED, Starting on Sat09/02/23 at 2035, Until 09/07/23 at 1332, Insomnia Ondansetron (ZOFRAN) tablet 4 mg(Linked Group 3) 4 mg, Oral, EVERY 6 HOURS NEEDED, Starting on Sat09/02/23 at 2035, Until 09/07/23 at 1332, Nausea / Vomiting, 1st line Ondansetron (ZOFRAN) tablet 4 mg(Linked Group 3) 4 mg, Per NG tube, EVERY 6 HOURS NEEDED, Starting on Sat09/02/23 at 2035, Until 09/07/23 at 1332, Nausea / Vomiting, 1st line Ondansetron 4mg/2ml (ZOFRAN) injection 4 mg(Linked Group 3) 4 mg, Intravenous, EVERY 6 HOURS NEEDED, Starting on Sat09/02/23 at 2035, Until 09/07/23 at 1332, Nausea / Vomiting, 1st line oxyCODONE (ROXICODONE) oral solution 10 mg(Linked Group 4) 10 mg, Oral, EVERY 4 HOURS NEEDED, Starting on Sat09/02/23 at 2037, Until 09/07/23 at 1332, Moderate Pain, Higher dose may be administered if lower dose was previously documented as ineffective and did not result in adverse effects (RR<10, decrease in level of consciousness). Decrease back to lower dose if patient has adverse effects, or no PRN used in previous 12 hours. oxyCODONE (ROXICODONE) oral solution 10 mg(Linked Group 4) 10 mg, Per NG tube, EVERY 4 HOURS NEEDED, Starting on Sat09/02/23 at 2037, Until 09/07/23 at 1332, Moderate Pain, Higher dose may be administered if lower dose was previously documented as ineffective and did not result in adverse effects (RR<10, decrease in level of consciousness). Decrease back to lower dose if patient has adverse effects, or no PRN used in previous 12 hours. oxyCODONE (ROXICODONE) oral solution 5 mg(Linked Group 4) 5 mg, Oral, EVERY 4 HOURS NEEDED, Starting on Sat09/02/23 at 2037, Until 09/07/23 at 1332, Moderate Pain, Use as initial dose. Higher dose may be administered if lower dose was previously documented as ineffective and did not result in adverse effects (RR<10, decrease in level of consciousness). oxyCODONE (ROXICODONE) oral solution 5 mg(Linked Group 4) 5 mg, Per NG tube, EVERY 4 HOURS NEEDED, Starting on Sat09/02/23 at 2037, Until 09/07/23 at 1332, Moderate Pain, Use as initial dose. Higher dose may be administered if lower dose was previously documented as ineffective and did not result in adverse effects (RR<10, decrease in level of consciousness). oxyCODONE (ROXICODONE) tablet 5 mg(Linked Group 4) 5 mg, Oral, EVERY 4 HOURS NEEDED, Starting on Sat09/02/23 at 2037, Until 09/07/23 at 1332, Moderate Pain, Use as initial dose. Higher dose may be administered if lower dose was previously documented as ineffective and did not result in adverse effects (RR<10, decrease in level of consciousness). oxyCODONE HCl (ROXICODONE) tablet 10 mg(Linked Group 4) 10 mg, Oral, EVERY 4 HOURS NEEDED, Starting on Sat09/02/23 at 2037, Until 09/07/23 at 1332, Moderate Pain, Higher dose may be administered if lower dose was previously documented as ineffective and did not result in adverse effects (RR<10, decrease in level of consciousness). Decrease back to lower dose if patient has adverse effects, or no PRN used in previous 12 hours. Polyethylene glycol (MIRALAX) packet 17 g(Linked Group 5) 17 g, Oral, DAILY NEEDED, Starting on Sat09/02/23 at 2035, Until 09/07/23 at 1332, Constipation If No Bowel Movement in 48 Hours 1443 (Given - Provider: David Caruso, JAZIEL) Polyethylene glycol (MIRALAX) packet 17 g(Linked Group 5) 17 g, Per NG tube, DAILY NEEDED, Starting on Sat09/02/23 at 2035, Until 09/07/23 at 1332, Constipation If No Bowel Movement in 48 Hours 1443 (See Alternative - Provider: David Caruso, JAZIEL) Prochlorperazine (COMPAZINE) injection 10 mg(Linked Group 6) 10 mg, Intravenous, EVERY 6 HOURS NEEDED, Starting on Sat09/02/23 at 2035, Until 09/07/23 at 1332, Refractory Nausea Vomiting, 2nd Line, For IV route: dilute dose with 10mL normal saline and give by slow IV push at a rate of 5mg/min. Maximum of 40mg/day. Promethazine HCl (PHENERGAN) tablet 12.5 mg(Linked Group 6) 12.5 mg, Oral, EVERY 6 HOURS NEEDED, Starting on Sat09/02/23 at 2035, Until 09/07/23 at 1332, Nausea / Vomiting, 2nd line Promethazine HCl (PHENERGAN) tablet 12.5 mg(Linked Group 6) 12.5 mg, Per NG tube, EVERY 6 HOURS NEEDED, Starting on Sat09/02/23 at 2035, Until 09/07/23 at 1332, Nausea / Vomiting, 2nd line Sodium chloride 0.9% IV solution 250 mL Intravenous, at 20 mL/hr, NEEDED, Starting on Sat09/02/23 at 2035, Until 09/07/23 at 1332, Carrier Fluid - See Admin. Inst, 250mL 0.9NS to be used as carrier fluid for intermittent small volume or piggyback medication administration as needed. Infusion rate of the carrier fluid should be set at 20 mL/hr unless the rate as the intermittent medication is less than 20 mL/hr. For intermittent medications with a rate less than 20 mL/hr set the carrier fluid at that rate of the intermittent or piggy back medication. Linked Groups Order Group 1: Senna (SENOKOT) tablet 8.6 mgJump to med 8.6 mg, Oral, DAILY, First dose on Sat09/03/23 at 0900, Until Discontinued Or Senna (SENOKOT) tablet 8.6 mgJump to med 8.6 mg, Per NG tube, DAILY, First dose on Sat09/03/23 at 0900, Until Discontinued Group 2: Acetaminophen (TYLENOL) tablet 650 mgJump to med 650 mg, Oral, EVERY 4 HOURS NEEDED, Starting on Sat09/02/23 at 2035, Until 09/07/23 at 1332, Mild Pain, Oral temp > 100.4 F, Maximum dose of acetaminophen is 4000 mg from all sources in 24 hours. Or Acetaminophen (TYLENOL) oral solution 650 mgJump to med 650 mg, Per NG tube, EVERY 4 HOURS NEEDED, Starting on Sat09/02/23 at 2035, Until 09/07/23 at 1332, Mild Pain, Oral temp > 100.4 F, Maximum dose of acetaminophen is 4000 mg from all sources in 24 hours. Or Acetaminophen (TYLENOL) suppository 650 mgJump to med 650 mg, Rectal, EVERY 4 HOURS NEEDED, Starting on Sat09/02/23 at 2035, Until 09/07/23 at 1332, Oral temp > 100.4 F, Mild Pain, Maximum dose of acetaminophen is 4000 mg from all sources in 24 hours. Group 3: Ondansetron 4mg/2ml (ZOFRAN) injection 4 mgJump to med 4 mg, Intravenous, EVERY 6 HOURS NEEDED, Starting on Sat09/02/23 at 2035, Until 09/07/23 at 1332, Nausea / Vomiting, 1st line Or Ondansetron (ZOFRAN) tablet 4 mgJump to med 4 mg, Oral, EVERY 6 HOURS NEEDED, Starting on Sat09/02/23 at 2035, Until 09/07/23 at 1332, Nausea / Vomiting, 1st line Or Ondansetron (ZOFRAN) tablet 4 mgJump to med 4 mg, Per NG tube, EVERY 6 HOURS NEEDED, Starting on Sat09/02/23 at 2035, Until 09/07/23 at 1332, Nausea / Vomiting, 1st line Group 4: oxyCODONE (ROXICODONE) tablet 5 mgJump to med 5 mg, Oral, EVERY 4 HOURS NEEDED, Starting on Sat09/02/23 at 2037, Until 09/07/23 at 1332, Moderate Pain, Use as initial dose. Higher dose may be administered if lower dose was previously documented as ineffective and did not result in adverse effects (RR<10, decrease in level of consciousness). Or oxyCODONE (ROXICODONE) oral solution 5 mgJump to med 5 mg, Oral, EVERY 4 HOURS NEEDED, Starting on Sat09/02/23 at 2037, Until 09/07/23 at 1332, Moderate Pain, Use as initial dose. Higher dose may be administered if lower dose was previously documented as ineffective and did not result in adverse effects (RR<10, decrease in level of consciousness). Or oxyCODONE (ROXICODONE) oral solution 5 mgJump to med 5 mg, Per NG tube, EVERY 4 HOURS NEEDED, Starting on Sat09/02/23 at 2037, Until 09/07/23 at 1332, Moderate Pain, Use as initial dose. Higher dose may be administered if lower dose was previously documented as ineffective and did not result in adverse effects (RR<10, decrease in level of consciousness). Or oxyCODONE HCl (ROXICODONE) tablet 10 mgJump to med 10 mg, Oral, EVERY 4 HOURS NEEDED, Starting on Sat09/02/23 at 2037, Until 09/07/23 at 1332, Moderate Pain, Higher dose may be administered if lower dose was previously documented as ineffective and did not result in adverse effects (RR<10, decrease in level of consciousness). Decrease back to lower dose if patient has adverse effects, or no PRN used in previous 12 hours. Or oxyCODONE (ROXICODONE) oral solution 10 mgJump to med 10 mg, Oral, EVERY 4 HOURS NEEDED, Starting on Sat09/02/23 at 2037, Until 09/07/23 at 1332, Moderate Pain, Higher dose may be administered if lower dose was previously documented as ineffective and did not result in adverse effects (RR<10, decrease in level of consciousness). Decrease back to lower dose if patient has adverse effects, or no PRN used in previous 12 hours. Or oxyCODONE (ROXICODONE) oral solution 10 mgJump to med 10 mg, Per NG tube, EVERY 4 HOURS NEEDED, Starting on Sat09/02/23 at 2037, Until 09/07/23 at 1332, Moderate Pain, Higher dose may be administered if lower dose was previously documented as ineffective and did not result in adverse effects (RR<10, decrease in level of consciousness). Decrease back to lower dose if patient has adverse effects, or no PRN used in previous 12 hours. Group 5: Polyethylene glycol (MIRALAX) packet 17 gJump to med 17 g, Oral, DAILY NEEDED, Starting on Sat09/02/23 at 2035, Until 09/07/23 at 1332, Constipation If No Bowel Movement in 48 Hours Or Polyethylene glycol (MIRALAX) packet 17 gJump to med 17 g, Per NG tube, DAILY NEEDED, Starting on Sat09/02/23 at 2035, Until 09/07/23 at 1332, Constipation If No Bowel Movement in 48 Hours Group 6: Promethazine HCl (PHENERGAN) tablet 12.5 mgJump to med 12.5 mg, Oral, EVERY 6 HOURS NEEDED, Starting on Sat09/02/23 at 2035, Until 09/07/23 at 1332, Nausea / Vomiting, 2nd line Or Promethazine HCl (PHENERGAN) tablet 12.5 mgJump to med 12.5 mg, Per NG tube, EVERY 6 HOURS NEEDED, Starting on Sat09/02/23 at 2035, Until 09/07/23 at 1332, Nausea / Vomiting, 2nd line Or Prochlorperazine (COMPAZINE) injection 10 mgJump to med 10 mg, Intravenous, EVERY 6 HOURS NEEDED, Starting on Sat09/02/23 at 2036, Until 09/07/23 at 1332, Refractory Nausea Vomiting, 2nd Line, For IV route: dilute dose with 10mL normal saline and give by slow IV push at a rate of 5mg/min. Maximum of 40mg/day. FOR RECORDS PERTAINING TO PATIENTS WHO ARE [...] BE BASED ON THE PRIMARY CLINICAL RECORDS. [employer] provides no warranty or guarantee of the accuracy or completeness of information in this document.
== END | disposition home or self-care (01) ==
PROVIDERS: PCP Family Medicine; Referring Provider Internal Medicine Critical Care Medicine; Visit Provider Internal Medicine Critical Care Medicine
DX: J44.9 Chronic obstructive pulmonary disease, unspecified (principal)

== ENCOUNTER 2024-09-14 13:00 | Outpatient (RCR) | payer MEDICARE, BC, SELFPAY ==
[2024-09-07 15:34] VITALS: BMI 29.9
== END 2024-09-17 23:59 ==
LOC: PR 13:00
PROVIDERS: PCP Family Medicine; Referring Provider Internal Medicine Critical Care Medicine; Visit Provider Internal Medicine Critical Care Medicine
DX: J44.9 Chronic obstructive pulmonary disease, unspecified (principal)
CPT/HCPCS: 97150; 94626

== ENCOUNTER 2024-09-15 17:07 | Inpatient (IN) | payer MEDICARE, SELFPAY ==
[2024-09-07 15:34] VITALS: BMI 29.9
[2024-09-15] VITALS (7 sets, daily range): BP systolic 107–147; BP diastolic 70–88; PULSE 84–95; RESP 16–27; TEMP 36.7–38.3; O2SAT 87–96; BMI 30.8
[2024-09-15 17:55] LABS: Hematocrit 46.5 % (40-54); Hemoglobin 15.0 g/dL (13.0-16.5); Immature Granulocytes Count 0.070 X10^3/uL (0.0-0.0); Mean Corp Hgb Conc 32.3 g/dL (32-36); Mean Corpuscular Volume 98.5 fL (80-94); Mean Platelet Vol. 11.7 fl (6.2-12.0); NRBC Flagged by Analyzer 0 % (0-5); Platelet Count 130 K/mm3 (150-450); RBC Distribution Width CV 13.2 % (11.6-14.6); RBC Distribution Width SD 48.4 fl (35.1-43.9); Red Blood Count 4.72 M/mm3 (4.6-6.2); White Blood Count 14.5 K/mm3 (4.4-11.0)
--- NOTE | 2024-09-15 17:57 | EDS_ITS ---
HPI History of Present Illness Chief Complaint: Fatigue Narrative Narrative: Patient a 64-year-old male with past medical history of BPH, vocal cord dysfunction with tracheostomy in place, heart failure with preserved ejection fraction, CAD, COPD, MARYJO, Parkinson's disease who presented to the emergency department with a chief complaint of weakness. Patient states that he has been in cardiopulmonary rehab for a while now and has been doing this 3 times weekly and he feels that this is making him very tired and fatigued. He states that today he could not get up out of bed today as he was extremely weak and tired was also complaint of left hip pain. Denies any falls or injuries. [facility] Medical History Transient hypotension Acute dyspnea Acute exacerbation of chronic obstructive pulmonary disease Fall Debility BPH (benign prostatic hyperplasia) GERD (gastroesophageal reflux disease) Dysphagia Vocal cord dysfunction (HFpEF) heart failure with preserved ejection fraction Carotid artery disease Dizziness Hypokalemia Hypoxia Asthma-COPD overlap syndrome Hyperlipidemia COPD (chronic obstructive pulmonary disease) Carotid artery stenosis Osteoarthritis of right hip Angioedema Diastolic dysfunction Throat clearing Moist mucous membranes of ear, nose, and throat Cough Oral thrush Carotid artery, internal, occlusion MARYJO (obstructive sleep apnea) Smoking greater than 30 pack years Chronic diastolic (congestive) heart failure Orthostatic hypotension Fatigue Hypersomnia Parkinson's disease Mild cognitive impairment Benign localized hyperplasia of prostate with urinary obstruction and lower urinary tract symptoms Weak urinary stream Urinary frequency Urge incontinence of urine Tobacco abuse counseling Tobacco abuse Shortness of breath on exertion Snoring Postoperative hypothyroidism Observed sleep apnea Nocturia Laryngeal spasm Hypertension Hypercholesterolemia Hoarseness of voice Elevated brain natriuretic peptide (BNP) level Elevated troponin level Fungal infection Change in voice CAD (coronary artery disease) Breathing difficult Bradycardia ACS (acute coronary syndrome) Asthma History of nuclear stress test Acute deep vein thrombosis of lower extremity Abnormal CT of the chest Dyspnea Wears glasses Alcohol use Arthritis DVT (deep venous thrombosis) Gastric reflux Smoker Cricopharyngeal dysphagia Parasomnia Bilateral hearing loss Spasm of vocal cords High cholesterol Hypothyroidism Home Medications ?Medication ?Instructions ?Recorded ?Last Taken ?Type levothyroxine 150 mcg tablet 150 mcg PO DAILY thyroid 01/13/21 09/07/23 History (Synthroid) aspirin 81 mg chewable tablet 81 mg PO DAILY heart hea lth 01/24/22 09/07/23 History (Luis Alberto Chewable Low Dose Aspirin) tamsulosin 0.4 mg capsule 0.4 mg PO DAILY prostate 09/07/23 History Handicap placard #1 ea 10/01/22 Unknown Rx budesonide 1 mg/2 mL suspension 1 mg (2 mL) inhalation BID 10/17/23 Unknown Rx for nebulization breathing #120 mL nitrofurantoin 100 mg PO MOWEFR bladder 04/13 Unknown History monohydrate/macrocrystals 100 mg capsule furosemide 40 mg tablet (Lasix) 20 mg (1/2 x 40 mg) PO 1200 PRN 11/02/23 Unknown Rx Leg swelling 30 days #0 tabs clopidogrel 75 mg tablet 75 mg PO DAILY anit platelet #90 04/06/24 Unknown Rx tabs potassium chloride 20 mEq 20 meq PO DAILY supplement # 90 tabs 04/07/24 Unknown Rx tablet,extended release rosuvastatin 5 mg tablet 5 mg PO DAILY cholesterol #9 0 tabs 04/10/24 Unknown Rx formoterol fumarate 20 mcg/2 mL 2 ml inhalation BID #1 20 mL 04/15/24 Unknown Rx solution for nebulization (Perforomist) nebulizer kits #1 ea 04/15/24 Unknown Rx revefenacin 175 mcg/3 mL solution 175 mcg (3 mL) inhal ation QDAY #90 04/15/24 Unknown Rx for nebulization (Alfredaperafai) mL ipratropium 0.5 mg-albuterol 3 mg 3 ml inhalation Q4H PRN PRN SOB 05/20/24 Unk nown Rx (2.5 mg base)/3 mL nebulization &/OR WHEEZING #360 mL soln guaifenesin 1,200 mg tablet, 1,200 mg PO .QD #30 tabs 05/27/24 Unknown Rx extended release 12 hr (Mucinex) prednisone 10 mg tablet 10 mg PO QDAY #30 tabs 07/15 Unknown Rx atropine 1 % eye drops See Rx Instructions buccal D AILY 07/23/24 Unknown Rx secretions #15 mL carbidopa 25 mg-levodopa 100 mg 2 tab PO TID parkinson s #540 tabs 07/23/24 Unknown Rx tablet fludrocortisone 0.1 mg tablet 0.2 mg (2 x 0.1 mg) PO Q AM #180 07/23/24 Unknown Rx tabs ropinirole 1 mg tablet 1 mg PO TID #90 tabs 5 Unknown Rx Motorized scooter #1 ea 09/10/24 Unknown Rx Allergy/AdvReac Type Severity Reaction Status Date / Time vibegron (From [place]) Allergy Severe Rash Verified 09/15/24 17:11 Family History Father COPD (chronic obstructive pulmonary disease) Emphysema lung Myocardial infarction Mother Parkinsons disease Malignant melanoma Surgical History Status post tracheostomy 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 artery (~06/06/21) H/O cardiac catheterization (~06/06/21) Hx of arthroscopy of knee H/O knee surgery H/O thyroidectomy Social History household members: spouse Smoking Status: Former smoker Tobacco: How many years used: 45 second hand exposure: Yes alcohol intake: former substance use type: does not use caffeine: Yes (daily) Type: coffee Number of servings: 2 what type of physical activity do you participate in: walking seatbelt use: sometimes ROS ROS ED ROS Narrative Constitutional: Denies any fevers, chills, headaches Eyes: Denies double vision changes vision blurry vision Cardiovascular: Denies chest pain Respiratory: Denies shortness of breath denies increase sputum production Abdomen: Denies abdominal pain nausea vomit diarrhea : Denies urinary symptoms states that he does have to self cath Neurological: Denies numbness, weak, tingling Musculoskeletal: Denies back pain Skin: Denies rashes or lesions EXAM Physical Exam Narrative Exam Narrative: General: Patient lying bed resting comfortably did not appear to be acute distress Head: Atraumatic, normocephalic Eyes: PERRL bilaterally, EOMI bilateral, no conjunctival injection noted Neck: Soft, supple, trachea midline, tracheostomy in place no concern for infection Cardiovascular: Regular rate and rhythm Respiratory: Patient has coarse breath sounds bilaterally Abdomen: No tenderness palpation Extremities: Patient plaint of mild pain with attempted range of motion of his left hip Neurological: Patient flexing his knee that he was at [facility] the year is 2024 Skin: Warm, dry, tact no rashes or lesions noted Const Vital Signs: 09/15/24 17:08 07/29/25 17:45 09/15/24 18:03 Temperature 99.7 F H Temperature Source Oral Pulse Rate 95 93 Respiratory Rate 16 24 H Respiratory Effort Blood Pressure 132/84 H Blood Pressure Mean 100 Pulse Ox 94 Oxygen Delivery Method Trach Collar Room Air 09/15/24 18:29 09/15/24 19:10 09/15/24 20:00 Temperature 98.1 F 100.7 F H Temperature Source Oral Oral Pulse Rate 91 84 Respiratory Rate 27 H 18 Respiratory Effort Short of Breath Blood Pressure 147/88 H 128/78 H Blood Pressure Mean 107 94 Pulse Ox 94 91 Oxygen Delivery Method Room Air Room Air 09/15/24 21:00 09/15/24 21:07 Temperature 100.9 F H Temperature Source Oral Pulse Rate 89 Respiratory Rate 21 H Respiratory Effort Blood Pressure 119/72 Blood Pressure Mean 87 Pulse Ox 96 94 Oxygen Delivery Method Room Air Room Air MDM MDM MDM Narrative Medical decision making narrative: Patient is a 64-year-old male who presents to the emerged part with a chief complaint of generalized weakness. On the differential diagnose includes but not limited to UTI, pneumonia, pneumothorax, ACS, electrolyte abnormality. Once workup is obtained reviewed he will be reevaluated. Patient will be given a liter of IV fluids As there is a history of heart failure which was ordered at 6:02 PM Patient's CBC was reviewed was significant for leukocytosis of 14,000, hemoglobin 15, platelet count of 130. Patient INR 1.2, PT 15. Patient sodium was 137, potassium normal at 4.1, creatinine was 1.39. Patient's troponin was 47 with a delta of 43, proBNP was noted to be 938. Patient's EKG was reviewed and showed sinus rhythm with a rate of 92 bpm. Patient's lipase was noted to be 9, urinalysis was significant for a urinary tract infection with positive nitrates 5 and leukocyte esterase greater than 100 white cells with 4+ bacteria he was given a gram of Rocephin which was ordered at 2033. This was sent for culture. Patient's x-ray of his hip and pelvis reviewed by myself by radiology showed no acute fracture or dislocation moderate Sarmiento bilateral hip osteoarthritis more advanced on the left where his pain is. Patient's chest x- ray reviewed by him some by radiology showed mild pulmonary vascular congestion no focal consolidation. Per nursing they suctioned a significant amount of sputum therefore I added a CT of the chest on. Patient CT chest reviewed no focal consolidations basilar subsegmental atelectasis minimal basilar bronchiectasis. Also given that respiratory is suctioning secretions we will add on azithromycin. On reevaluation the patient he did become hypoxic he is placed on trach collar. He was taken off of this as he was satting well and nursing staff try to get him up and ambulate and he desaturated to 87% Given his generalized weakness, acute hypoxic respiratory failure requiring oxygen/trach collar UTI will discuss case with hospitalist for admission. Discussed case with hospitalist Dr. Sotelo who accept the patient for admission. Updated patient and at bedside they are agreeable to plan all question concerns answered. Lab Data Labs: Laboratory Results - last 24 hr 09/15/24 09/15/24 09/15/24 17:40 17:40 17:40 WBC 14.5 H RBC 4.72 Hgb 15.0 Hct 46.5 MCV 98.5 H MCH 31.8 MCHC 32.3 RDW Std Deviation 48.4 H RDW Coeff of Nick 13.2 Plt Count 130 L MPV 11.7 Immature Gran % (Auto) 0.500 Neut % (Auto) 83.0 H Lymph % (Auto) 8.1 L [place] % (Auto) 8.0 Eos % (Auto) 0.1 Baso % (Auto) 0.3 Absolute Neuts (auto) 12.1 H Absolute Lymphs (auto) 1.18 Nucleated RBC % 0 PT 15.0 H INR 1.2 APTT 28.5 Sodium Cancelled 137 Potassium Cancelled 4.1 Chloride Cancelled Carbon Dioxide Anion Gap BUN Creatinine Estim Creat Clear Calc Est GFR (MDRD) Non-Af BUN/Creatinine Ratio Glucose Lactic Acid Calcium Total Bilirubin AST ALT Alkaline Phosphatase Troponin T High Sens Troponin T Hi Sens 2 Hr NT pro BNP II Total Protein Albumin Globulin Albumin/Globulin Ratio Lipase Urine Color Urine Clarity Urine pH Ur Specific [place] Urine Protein Urine Glucose (UA) Urine Ketones Urine Occult Blood Urine Nitrite Urine Bilirubin Urine Urobilinogen Ur Leukocyte Esterase Urine RBC Urine WBC Ur Squamous Epith Cells Urine Bacteria Urine Mucus 09/15/24 09/15/24 09/15/24 17:40 17:40 17:40 WBC RBC Hgb Hct MCV MCH MCHC RDW Std Deviation RDW Coeff of Nick Plt Count MPV Immature Gran % (Auto) Neut % (Auto) Lymph % (Auto) [place] % (Auto) Eos % (Auto) Baso % (Auto) Absolute Neuts (auto) Absolute Lymphs (auto) Nucleated RBC % PT INR APTT Sodium Potassium Chloride 99 Carbon Dioxide Cancelled 24.4 Anion Gap Cancelled 13 BUN Cancelled Creatinine Estim Creat Clear Calc Est GFR (MDRD) Non-Af BUN/Creatinine Ratio Glucose Lactic Acid Calcium Total Bilirubin AST ALT Alkaline Phosphatase Troponin T High Sens Troponin T Hi Sens 2 Hr NT pro BNP II Total Protein Albumin Globulin Albumin/Globulin Ratio Lipase Urine Color Urine Clarity Urine pH Ur Specific [place] Urine Protein Urine Glucose (UA) Urine Ketones Urine Occult Blood Urine Nitrite Urine Bilirubin Urine Urobilinogen Ur Leukocyte Esterase Urine RBC Urine WBC Ur Squamous Epith Cells Urine Bacteria Urine Mucus 09/15/24 09/15/24 09/15/24 17:40 17:40 17:40 WBC RBC Hgb Hct MCV MCH MCHC RDW Std Deviation RDW Coeff of Nick Plt Count MPV Immature Gran % (Auto) Neut % (Auto) Lymph % (Auto) [place] % (Auto) Eos % (Auto) Baso % (Auto) Absolute Neuts (auto) Absolute Lymphs (auto) Nucleated RBC % PT INR APTT Sodium Potassium Chloride Carbon Dioxide Anion Gap BUN 22 H Creatinine Cancelled 1.39 H Estim Creat Clear Calc Cancelled 59.40 Est GFR (MDRD) Non-Af Cancelled BUN/Creatinine Ratio Glucose Lactic Acid Calcium Total Bilirubin AST ALT Alkaline Phosphatase Troponin T High Sens Troponin T Hi Sens 2 Hr NT pro BNP II Total Protein Albumin Globulin Albumin/Globulin Ratio Lipase Urine Color Urine Clarity Urine pH Ur Specific [place] Urine Protein Urine Glucose (UA) Urine Ketones Urine Occult Blood Urine Nitrite Urine Bilirubin Urine Urobilinogen Ur Leukocyte Esterase Urine RBC Urine WBC Ur Squamous Epith Cells Urine Bacteria Urine Mucus 09/15/24 09/15/24 09/15/24 17:40 17:40 17:40 WBC RBC Hgb Hct MCV MCH MCHC RDW Std Deviation RDW Coeff of Nick Plt Count MPV Immature Gran % (Auto) Neut % (Auto) Lymph % (Auto) [place] % (Auto) Eos % (Auto) Baso % (Auto) Absolute Neuts (auto) Absolute Lymphs (auto) Nucleated RBC % PT INR APTT Sodium Potassium Chloride Carbon Dioxide Anion Gap BUN Creatinine Estim Creat Clear Calc Est GFR (MDRD) Non-Af 56 L BUN/Creatinine Ratio Cancelled 16.1 Glucose Cancelled 109 H Lactic Acid Calcium Cancelled Total Bilirubin AST ALT Alkaline Phosphatase Troponin T High Sens Troponin T Hi Sens 2 Hr NT pro BNP II Total Protein Albumin Globulin Albumin/Globulin Ratio Lipase Urine Color Urine Clarity Urine pH Ur Specific Mil[place] Urine Protein Urine Glucose (UA) Urine Ketones Urine Occult Blood Urine Nitrite Urine Bilirubin Urine Urobilinogen Ur Leukocyte Esterase Urine RBC Urine WBC Ur Squamous Epith Cells Urine Bacteria Urine Mucus 09/15/24 09/15/24 09/15/24 17:40 17:40 17:40 WBC RBC Hgb Hct MCV MCH MCHC RDW Std Deviation RDW Coeff of Nick Plt Count MPV Immature Gran % (Auto) Neut % (Auto) Lymph % (Auto) [place] % (Auto) Eos % (Auto) Baso % (Auto) Absolute Neuts (auto) Absolute Lymphs (auto) Nucleated RBC % PT INR APTT Sodium Potassium Chloride Carbon Dioxide Anion Gap BUN Creatinine Estim Creat Clear Calc Est GFR (MDRD) Non-Af BUN/Creatinine Ratio Glucose Lactic Acid Calcium 9.3 Total Bilirubin Cancelled 1.17 AST Cancelled 34 ALT Cancelled Alkaline Phosphatase Troponin T High Sens Troponin T Hi Sens 2 Hr NT pro BNP II Total Protein Albumin Globulin Albumin/Globulin Ratio Lipase Urine Color Urine Clarity Urine pH Ur Specific Mil[place] Urine Protein Urine Glucose (UA) Urine Ketones Urine Occult Blood Urine Nitrite Urine Bilirubin Urine Urobilinogen Ur Leukocyte Esterase Urine RBC Urine WBC Ur Squamous Epith Cells Urine Bacteria Urine Mucus 09/15/24 09/15/24 09/15/24 17:40 17:40 17:40 WBC RBC Hgb Hct MCV MCH MCHC RDW Std Deviation RDW Coeff of Nick Plt Count MPV Immature Gran % (Auto) Neut % (Auto) Lymph % (Auto) [place] % (Auto) Eos % (Auto) Baso % (Auto) Absolute Neuts (auto) Absolute Lymphs (auto) Nucleated RBC % PT INR APTT Sodium Potassium Chloride Carbon Dioxide Anion Gap BUN Creatinine Estim Creat Clear Calc Est GFR (MDRD) Non-Af BUN/Creatinine Ratio Glucose Lactic Acid Calcium Total Bilirubin AST ALT 6 Alkaline Phosphatase Cancelled 72 Troponin T High Sens 47 H Troponin T Hi Sens 2 Hr NT pro BNP II 938 H Cancelled Total Protein Cancelled Albumin Globulin Albumin/Globulin Ratio Lipase Urine Color Urine Clarity Urine pH Ur Specific Mil[place] Urine Protein Urine Glucose (UA) Urine Ketones Urine Occult Blood Urine Nitrite Urine Bilirubin Urine Urobilinogen Ur Leukocyte Esterase Urine RBC Urine WBC Ur Squamous Epith Cells Urine Bacteria Urine Mucus 09/15/24 09/15/24 09/15/24 17:40 17:40 17:40 WBC RBC Hgb Hct MCV MCH MCHC RDW Std Deviation RDW Coeff of Nick Plt Count MPV Immature Gran % (Auto) Neut % (Auto) Lymph % (Auto) [place] % (Auto) Eos % (Auto) Baso % (Auto) Absolute Neuts (auto) Absolute Lymphs (auto) Nucleated RBC % PT INR APTT Sodium Potassium Chloride Carbon Dioxide Anion Gap BUN Creatinine Estim Creat Clear Calc Est GFR (MDRD) Non-Af BUN/Creatinine Ratio Glucose Lactic Acid Calcium Total Bilirubin AST ALT Alkaline Phosphatase Troponin T High Sens Troponin T Hi Sens 2 Hr NT pro BNP II Total Protein 7.4 Albumin Cancelled 4.0 Globulin Cancelled 3.4 Albumin/Globulin Ratio Cancelled Lipase Urine Color Urine Clarity Urine pH Ur Specific [place] Urine Protein Urine Glucose (UA) Urine Ketones Urine Occult Blood Urine Nitrite Urine Bilirubin Urine Urobilinogen Ur Leukocyte Esterase Urine RBC Urine WBC Ur Squamous Epith Cells Urine Bacteria Urine Mucus 09/15/24 09/15/24 09/15/24 17:40 17:40 17:41 WBC RBC Hgb Hct MCV MCH MCHC RDW Std Deviation RDW Coeff of Nick Plt Count MPV Immature Gran % (Auto) Neut % (Auto) Lymph % (Auto) [place] % (Auto) Eos % (Auto) Baso % (Auto) Absolute Neuts (auto) Absolute Lymphs (auto) Nucleated RBC % PT INR APTT Sodium Potassium Chloride Carbon Dioxide Anion Gap BUN Creatinine Estim Creat Clear Calc Est GFR (MDRD) Non-Af BUN/Creatinine Ratio Glucose Lactic Acid 1.1 Calcium Total Bilirubin AST ALT Alkaline Phosphatase Troponin T High Sens Troponin T Hi Sens 2 Hr NT pro BNP II Total Protein Albumin Globulin Albumin/Globulin Ratio 1.2 Lipase Cancelled 9 L Urine Color Urine Clarity Urine pH Ur Specific [place] Urine Protein Urine Glucose (UA) Urine Ketones Urine Occult Blood Urine Nitrite Urine Bilirubin Urine Urobilinogen Ur Leukocyte Esterase Urine RBC Urine WBC Ur Squamous Epith Cells Urine Bacteria Urine Mucus 09/15/24 09/15/24 19:00 19:50 WBC RBC Hgb Hct MCV MCH MCHC RDW Std Deviation RDW Coeff of Nick Plt Count MPV Immature Gran % (Auto) Neut % (Auto) Lymph % (Auto) [place] % (Auto) Eos % (Auto) Baso % (Auto) Absolute Neuts (auto) Absolute Lymphs (auto) Nucleated RBC % PT INR APTT Sodium Potassium Chloride Carbon Dioxide Anion Gap BUN Creatinine Estim Creat Clear Calc Est GFR (MDRD) Non-Af BUN/Creatinine Ratio Glucose Lactic Acid Calcium Total Bilirubin AST ALT Alkaline Phosphatase Troponin T High Sens Troponin T Hi Sens 2 Hr 43 H NT pro BNP II Total Protein Albumin Globulin Albumin/Globulin Ratio Lipase Urine Color Yellow Urine Clarity Sl. Cloudy Urine pH 6.0 Ur Specific [place] 1.015 Urine Protein 30 H Urine Glucose (UA) Normal Urine Ketones 5 H Urine Occult Blood 25 H Urine Nitrite Positive H Urine Bilirubin Negative Urine Urobilinogen Normal Ur Leukocyte Esterase 500 H Urine RBC 0-5 SEEN Urine WBC >100 SEEN Ur Squamous Epith Cells 0-5 SEEN Urine Bacteria 4+ Urine Mucus 0 SEEN Radiography Diagnostic Testing: Clinical Impression(s) from Imaging Studies Brain CT 09/15/24 17:59 IMPRESSION: No acute intracranial abnormality. Reading Location: [facility] Chest X-Ray 09/15/24 18:20 IMPRESSION: Mild pulmonary vascular congestion. No focal consolidation. Reading Location: [facility] Hip/Pelvis X-Ray 09/15/24 18:20 IMPRESSION: 1. No acute fracture or dislocation. 2. Moderate-advanced bilateral hip osteoarthritis, more advanced on the left. Reading Location: [facility] Chest CT 09/15/24 19:12 IMPRESSION: No focal consolidations. Bibasilar subsegmental atelectasis. Minimal bibasilar bronchiectasis. Reading Location: [facility] Discharge Plan Triage Chief Complaint: Fatigue ED Provider: Jose Oliveira Dx/Rx/DC Orders Clinical Impression: Acute hypoxic respiratory failure, CAD (coronary artery disease), Parkinson's disease, (HFpEF) heart failure with preserved ejection fraction, Generalized weakness, Urinary tract infection Prescriptions: No Action tamsulosin 0.4 mg capsule 0.4 mg PO DAILY budesonide 1 mg/2 mL suspension for nebulization 1 mg inhalation BID Qty: 120 11RF formoterol fumarate [Perforomist] 20 mcg/2 mL solution for nebulization 2 ml inhalation BID Qty: 120 3RF Yupelri 175 mcg/3 mL solution for nebulization 175 mcg inhalation QDAY Qty: 90 3RF (DME) nebulizer kits See Rx Instructions .ROUTE .MEDSUPPLY Qty: 1 11RF Rx Instructions: As directed guaifenesin [Mucinex] 1,200 mg tablet extended release 12hr 1,200 mg PO .QD Qty: 30 11RF carbidopa-levodopa 25-100 mg tablet 2 tab PO TID Qty: 540 2RF fludrocortisone 0.1 mg tablet 0.2 mg PO QAM Qty: 180 1RF ropinirole 1 mg tablet 1 mg PO TID Qty: 90 5RF atropine 1 % drops See Rx Instructions buccal DAILY Qty: 15 6RF Rx Instructions: Take 1 to 2 drops buccally daily (DME) Motorized scooter See Rx Instructions .Route .MEDSUPPLY Qty: 1 0RF Rx Instructions: As directed prednisone 10 mg tablet 10 mg PO QDAY Qty: 30 0RF Rx Instructions: take 4 tabs for three days, then 3 tabs for three days, then 2 tabs for three days, then 1 tab for 3 days levothyroxine [Synthroid] 150 mcg tablet 150 mcg PO DAILY aspirin [Luis Alberto Chewable Aspirin] 81 mg tablet,chewable 81 mg PO DAILY Patient Comments: 1 tablet by mouth once a day furosemide [Lasix] 40 mg tablet 20 mg PO 1200 PRN (Reason: Leg swelling) 30 Days Qty: 0 0RF Rx Instructions: Hold for SBP less than 100 mmHg nitrofurantoin monohyd/m-cryst 100 mg capsule 100 mg PO MOWEFR (DME) Handicap placard See Rx Instructions .Route .MEDSUPPLY Qty: 1 0RF Rx Instructions: Expiration: 10/01/2025 clopidogrel 75 mg tablet 75 mg PO DAILY Qty: 90 3RF potassium chloride 20 mEq tablet extended release 20 meq PO DAILY Qty: 90 3RF rosuvastatin 5 mg tablet 5 mg PO DAILY Qty: 90 3RF ipratropium-albuterol 0.5 mg-3 mg(2.5 mg base)/3 mL solution for nebulization 3 ml inhalation Q4H PRN PRN (Reason: SOB &/OR WHEEZING) Qty: 360 11RF Primary Care Provider: Cisco Dozier Referrals: Cisco Dozier DO [Primary Care Provider] - Print Language: Kinyarwanda Disposition Disposition: Acute Care Hospital [facility]
--- NOTE | 2024-09-15 17:59 | CT_ITS ---
PROCEDURE: BRAIN/HEAD WITHOUT CONTRAST 09/15/2024 REASON FOR EXAM: AMS TECHNIQUE: BRAIN/HEAD WITHOUT CONTRAST Coronal and Sagittal reconstruction series were provided. One or more dose reduction techniques were used (e.g., Automated exposure control, adjustment of the mA and/or kV according to patient size, use of iterative reconstruction technique. RADIATION DOSE SUMMARY: CTDlvol: 44.99 mGy DLP: 846.73 mGycm COMPARISON: 08/13/2023 FINDINGS: No acute intracranial hemorrhage, extra-axial collection, mass effect or evidence of acute infarct. Ventricular and sulcal size and configuration are within normal limits for age. Orbital contents are unremarkable. Atherosclerotic vascular calcifications. Intact skull base and calvarium. Clear paranasal sinuses and mastoid air cells. CT/Brain/Head without Contrast IMPRESSION: No acute intracranial abnormality. Reading Location: [id number]
[2024-09-15 18:09] LABS: Prothrombin Time (Protime)PT. 15.0 SECONDS (11.7-14.9)
[2024-09-15 18:10] LABS: Partial Thromboplast Time 28.5 Seconds (24.1-36.2)
[2024-09-15] MEDS: 0.9% Normal Saline (1000mL) 1,000 ML 999 ML IV (18:11)
[2024-09-15 18:16] LABS: AST(SGOT) 34 U/L (<=37); Alanine Aminotransfer ALT/SGPT 6 U/L (<=46); Albumin, Serum 4.0 g/dL (3.4-4.8); Alkaline Phosphatase 72 U/L (40-129); Anion Gap 13 (5-15); BUN 22 mg/dL (4-19); BUN/Creat Ratio 16.1 RATIO (10-20); Calcium,Total 9.3 mg/dL (7.6-11.0); Carbon Dioxide 24.4 mmol/L (21.0-32.0); Chloride 99 mmol/L (98-108); Estimated Creatinine Clearance 59.40 ml/min (50-250); Globulin 3.4 g/dL (2.2-4.2); Glucose 109 mg/dL (70-99); Lipase 9 U/L (13-75); Potassium 4.1 mmol/L (3.3-5.1); Pro- Brain NATRIURETIC PEPTIDE 938 pg/mL (<=900); Troponin T High Sensitivity 47 ng/L (<=22)
--- NOTE | 2024-09-15 18:20 | RAD_ITS ---
PROCEDURE: HIP UNI 4+ VIEWS WITH PELVIS 09/15/2024 REASON FOR EXAM: PAIN TECHNIQUE: Pelvis and left hip radiographs: AP and lateral/frogleg views COMPARISON: None. FINDINGS: No acute fracture or dislocation. Bilateral hip joints are intact with moderate-advanced degenerative arthrosis, characterized by joint space narrowing, subchondral sclerosis and marginal osteophytosis. No aggressive osseous lytic or blastic lesion. Degenerative changes of the lower lumbosacral spine. RAD/Hip uni 4+ views with Pelvis IMPRESSION: 1. No acute fracture or dislocation. 2. Moderate-advanced bilateral hip osteoarthritis, more advanced on the left. Reading Location: [id number]
--- NOTE | 2024-09-15 18:20 | RAD_ITS ---
PROCEDURE: CHEST PA AND LATERAL 09/15/2024 REASON FOR EXAM: COUGH TECHNIQUE: CHEST PA AND LATERAL COMPARISON: 03/08/24 FINDINGS: Tracheostomy tube is noted. Mild pulmonary vascular congestion. No focal consolidation. Left base subsegmental atelectasis. No pleural effusion or pneumothorax. Cardiac silhouette is within normal limits. No acute fractures. RAD/Chest PA and Lateral IMPRESSION: Mild pulmonary vascular congestion. No focal consolidation. Reading Location: [facility]
--- NOTE | 2024-09-15 19:12 | CT_ITS ---
PROCEDURE: CHEST WITHOUT CONTRAST 09/15/2024 REASON FOR EXAM: COUGH WEAKNESS TECHNIQUE: Chest CT without contrast. Coronal and Sagittal reconstruction series were provided. One or more dose reduction techniques were used (e.g., Automated exposure control, adjustment of the mA and/or kV according to patient size, use of iterative reconstruction technique RADIATION DOSE SUMMARY: DLP: 456 mGycm COMPARISON: 08/04/24 FINDINGS: Tracheostomy tube noted. LUNGS AND PLEURA: No focal consolidation. Bibasilar subsegmental atelectasis. Minimal bibasilar bronchiectasis. No pleural effusion. No pneumothorax. No pleural thickening. No nodules or masses. Scattered tiny calcified granulomas. MEDIASTINUM: No lymphadenopathy or mass. The heart shows no acute findings. Extensive coronary atherosclerosis. The aorta shows no acute findings. The pulmonary trunk and branches of the vessels in the mediastinum are within normal limits. Mild stable gaseous dilatation of the esophagus, probably reflux. SUPRACLAVICULAR AND AXILLARY: No abnormalities seen in these regions. No mass or significant lymphadenopathy. UPPER ABDOMEN: 1 x 1 cm calcified lesion within the spleen. Small hiatal hernia. BONES AND SOFT TISSUES: The bony structures show no significant acute findings. No focal bony mass lesions noted. The subcutaneous soft tissues are unremarkable. CT/Chest without Contrast IMPRESSION: No focal consolidations. Bibasilar subsegmental atelectasis. Minimal bibasil ar bronchiectasis. Reading Location: [facility]
[2024-09-15 19:25] LABS: Mucous, Urine 0 SEEN /hpf (<or=2+)
[2024-09-15 19:34] LABS: Color, Urine Yellow (Yellow); Glucose, Dipstick Normal (Normal); Ketone-Dipstick 5 mg/dl (Negative); Leukocyte Esterase-Dipstick 500 /ul (Negative); Nitrite-Dipstick Positive (Negative); Occult Blood-Urine 25 /ul (Negative); Protein-Dipstick 30 mg/dl (Negative); Specific Gravity, Urine 1.015 (1.002-1.030); Urine Bilirubin Dipstick Negative (Negative)
[2024-09-15 20:15] LABS: Red Blood Cells-Urine 0-5 SEEN /hpf (0-5)
[2024-09-15 20:16] LABS: Squamous Epithelial Cells - UA 0-5 SEEN /hpf (0-5)
[2024-09-15 20:47] LABS: Troponin T High Sens 2 HR 43 ng/L (<=22)
--- NOTE | 2024-09-15 23:00 | PCM.HP.STD ---
[facility] - General General Date of Admission: 09/15/24 Date of Service: 09/15/24 Chief Complaint: Generalized Weakness and Fatigue. HPI Narrative FREDDIE COLE, is a 64 M with a past medical history of essential hypertension; on furosemide, hyperlipidemia; on rosuvastatin, hypothyroidism; s/p thyroidectomy (1998) on levothyroxine, obesity; with BMI of 30.9 this admission, MARYJO, Parkinson's disease; on carbidopa-levodopa TID plus ropinirole TID, Shy-Drager syndrome; on fludrocortisone followed by Dr. Hernandez of neurology,history of tobacco abuse; with subsequent asthma/COPD on prednisone, budesonide BID, formoterol BID and duo-nebs q.4 hours prn, history of vocal cord dysfunction; with previous tracheostomy, history of cricopharyngeal dysphagia, history of chronic diastolic CHF; with preserved LVEF, history of DVT, history of coronary artery stenosis; s/p RCA stent (2021) on BASA and clopidogrel, angioedema, history of proctitis, BPH; with [id number] urinary retention and Mayes catheter placement on tamsulosin and suprressive nitrofurantoin (-W-F), OA; of the Right hip and history of COVID-19 (10/2023) treated conservatively with oral Dexamethasone with patient currently participating in cardiopulmonary rehabilitation who presents to [facility] ER complaining of who presents to [facility] ER complaining of generalized weakness and fatigue. Mr. Cole reports his symptoms began approximately 1 week prior to admission with a gradual-onset of fatigue and generalized weakness. He states he has been in cardiopulmonary rehab since September 07, 2024 3 times weekly with patient left feeling tired and very fatigued. Then earlier today he could not get out of bed as he was so weak with an additional complaint of Left hip pain so he decided to come in for further evaluation and treatment. He denies recent injury or fall but he does admit to self catheterizing up to 4 times per day with recent replacement of his Mayes earlier today. He also denies dysuria, hematuria or lower abdominal pain but he does admit to discolored urine. There was also no report of associated fever, chills, nausea, vomiting, diarrhea, constipation, abdominal pain, chest pain, palpitations, heart racing, lower extremity edema, headache or rash. In the ER he was noted to have a UA positive for Acute Cystitis; without hematuria with a corresponding Leukocytosis of 14.5 K present on admission in the setting of previously known BPH; with [id number] urinary retention and recent Mayes catheter placement on tamsulosin and suppressive nitrofurantoin (-W-) complicated by suspected MICHAEL with elevated serum creatinine of 1.39 mg/dL present on admission (up from his baseline of 0.95 mg/dL last admission) compounded by moderate Thrombocytopenia of 130 K present on admission in addition to mildly elevated troponin T of 47 ng/L and mildly elevated NT pro-BNP II of 938 pg/mL suspected to be due to mild acute cardiac strain with no clinical or radiographic signs of AE CHF at this time all culminating to cause Generalized Weakness and Fatigue with Left Hip Pain in the setting of known OA. He was then admitted to the PCU for ongoing care for stay that is expected to extend beyond 2 midnights. [facility] Medical History Transient hypotension Acute dyspnea Acute exacerbation of chronic obstructive pulmonary disease Fall Debility BPH (benign prostatic hyperplasia) GERD (gastroesophageal reflux disease) Dysphagia Vocal cord dysfunction (HFpEF) heart failure with preserved ejection fraction Carotid artery disease Dizziness Hypokalemia Hypoxia Asthma-COPD overlap syndrome Hyperlipidemia COPD (chronic obstructive pulmonary disease) Carotid artery stenosis Osteoarthritis of right hip Angioedema Diastolic dysfunction Throat clearing Moist mucous membranes of ear, nose, and throat Cough Oral thrush Carotid artery, internal, occlusion MARYJO (obstructive sleep apnea) Smoking greater than 30 pack years Chronic diastolic (congestive) heart failure Orthostatic hypotension Fatigue Hypersomnia Parkinson's disease Mild cognitive impairment Benign localized hyperplasia of prostate with urinary obstruction and lower urinary tract symptoms Weak urinary stream Urinary frequency Urge incontinence of urine Tobacco abuse counseling Tobacco abuse Shortness of breath on exertion Snoring Postoperative hypothyroidism Observed sleep apnea Nocturia Laryngeal spasm Hypertension Hypercholesterolemia Hoarseness of voice Elevated brain natriuretic peptide (BNP) level Elevated troponin level Fungal infection Change in voice CAD (coronary artery disease) Breathing difficult Bradycardia ACS (acute coronary syndrome) Asthma History of nuclear stress test Acute deep vein thrombosis of lower extremity Abnormal CT of the chest Dyspnea Wears glasses Alcohol use Arthritis DVT (deep venous thrombosis) Gastric reflux Smoker Cricopharyngeal dysphagia Parasomnia Bilateral hearing loss Spasm of vocal cords High cholesterol Hypothyroidism Home Medications ?Medication ?Instructions ?Recorded ?Last Taken ?Type levothyroxine 150 mcg tablet 150 mcg PO DAILY thyroid 01/13/21 09/07/23 History (Synthroid) aspirin 81 mg chewable tablet 81 mg PO DAILY heart health 01/24/22 09/07/23 History (Luis Alberto Chewable Low Dose Aspirin) tamsulosin 0.4 mg capsule 0.4 mg PO DAILY prostate 05/17/22 09/07/23 History Handicap placard #1 ea 10/01/22 Unknown Rx budesonide 1 mg/2 mL suspension 1 mg (2 mL) inhalation BID 10/17/23 Unknown Rx for nebulization breathing #120 mL nitrofurantoin 100 mg PO MOWEFR bladder 10/21/23 Unknown History monohydrate/macrocrystals 100 mg capsule furosemide 40 mg tablet (Lasix) 20 mg (1/2 x 40 mg) PO 1200 PRN 11/02/23 Unknown Rx Leg swelling 30 days #0 tabs clopidogrel 75 mg tablet 75 mg PO DAILY anit platelet #90 04/06/24 Unknown Rx tabs potassium chloride 20 mEq 20 meq PO DAILY supplement #90 tabs 04/07/24 Unknown Rx tablet,extended release rosuvastatin 5 mg tablet 5 mg PO DAILY cholesterol #90 tabs 04/10/24 Unknown Rx formoterol fumarate 20 mcg/2 mL 2 ml inhalation BID #120 mL 04/15/24 Unknown Rx solution for nebulization (Perforomist) nebulizer kits #1 ea 04/15/24 Unknown Rx revefenacin 175 mcg/3 mL solution 175 mcg (3 mL) inhalation QDAY #90 04/15/24 Unknown Rx for nebulization (Alfredaperafai) mL ipratropium 0.5 mg-albuterol 3 mg 3 ml inhalation Q4H PRN PRN SOB 05/20/24 Unknown Rx (2.5 mg base)/3 mL nebulization &/OR WHEEZING #360 mL soln prednisone 10 mg tablet 10 mg PO QDAY #30 tabs 07/15/24 Unknown Rx atropine 1 % eye drops See Rx Instructions buccal DAILY 07/23/24 Unknown Rx secretions #15 mL carbidopa 25 mg-levodopa 100 mg 2 tab PO TID parkinsons #540 tabs 07/23/24 Unknown Rx tablet fludrocortisone 0.1 mg tablet 0.2 mg (2 x 0.1 mg) PO QAM #180 07/23/24 Unknown Rx tabs Motorized scooter #1 ea 09/10/24 Unknown Rx omeprazole 40 mg capsule,delayed 40 mg PO DAILY 09/15/24 Unknown History release ropinirole 1 mg tablet 0.5 mg PO TID 09/15/24 Unknown History Allergy/AdvReac Type Severity Reaction Status Date / Time vibegron (From Gemtesa) Allergy Severe Rash Verified 09/15/24 17:11 Family History Father COPD (chronic obstructive pulmonary disease) Emphysema lung Myocardial infarction Mother Parkinsons disease Malignant melanoma Surgical History Status post tracheostomy 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 artery (~06/06/21) H/O cardiac catheterization (~06/06/21) Hx of arthroscopy of knee H/O knee surgery H/O thyroidectomy Social History household members: spouse Smoking Status: Former smoker Tobacco: How many years used: 45 second hand exposure: Yes alcohol intake: former substance use type: does not use caffeine: Yes (daily) Type: coffee Number of servings: 2 what type of physical activity do you participate in: walking seatbelt use: sometimes ROS ROS Narrative Review of Systems: Constitutional: Patient denies fever or chills. Eyes: Patient denies change in vision or discharge from eyes. ENT: Patient denies runny nose, sore throat or ear pain. Resp: Patient denies shortness of breath but admits to chronic cough with sputum production. CV: Patient denies chest pain, palpitations, heart racing or lower extremity edema. GI: Patient denies abdominal pain, nausea, vomiting, diarrhea or constipation. : Patient admits to frequent self-catheterization as per HPI. MSK: Patient admits to generalized weakness and fatigue but he denies arthralgias or myalgias. Skin: Patient denies rash, abscess, wounds or jaundice. Psych: Patient denies symptoms of uncontrolled depression or anxiety. Neuro: Patient denies headache, paresthesias or focal neurologic deficits. Allergy: Patient denies lip swelling, tongue swelling or urticaria. Hematology: Patient denies easy bleeding or easy bruisability. Endocrinology: Patient denies polyuria, polydipsia, polyphagia or heat/cold intolerance. 14 point ROS otherwise negative except for positives noted above in HPI. Vital Signs Vital Signs Vital Signs: 09/15/24 17:08 09/15/24 17:45 09/15/24 18:03 Temperature 99.7 F H Temperature Source Oral Pulse Rate 95 93 Respiratory Rate 16 24 H Respiratory Effort Blood Pressure 132/84 H Blood Pressure Mean 100 Pulse Ox 94 Oxygen Delivery Method Trach Collar Room Air 09/15/24 18:29 09/15/24 19:10 09/15/24 20:00 Temperature 98.1 F 100.7 F H Temperature Source Oral Oral Pulse Rate 91 84 Respiratory Rate 27 H 18 Respiratory Effort Short of Breath Blood Pressure 147/88 H 128/78 H Blood Pressure Mean 107 94 Pulse Ox 94 91 Oxygen Delivery Method Room Air Room Air 09/15/24 21:00 09/15/24 21:07 Temperature 100.9 F H Temperature Source Oral Pulse Rate 89 Respiratory Rate 21 H Respiratory Effort Blood Pressure 119/72 Blood Pressure Mean 87 Pulse Ox 96 94 Oxygen Delivery Method Room Air Room Air Weight Weight: 208 lb 15.971 oz Body Mass Index (BMI) 30.8 Physical Exam Const alert, oriented x3 and no apparent distress Constitutional Narrative: Obese with chronically ill appearance and tracheostomy in place. General Appearance: cooperative HEENT normocephalic, head/scalp atraumatic, hearing grossly normal bilaterally and moist oral mucous membranes Eyes PERRL, EOMs intact bilaterally and conjunctivae normal Neck no lymphadenopathy, supple and no JVD Resp Resp Narrative: Diminished throughout with coarse breath sounds bilaterally. Cardio regular rate and regular rhythm GI normal to inspection, nondistended, normoactive bowel sounds, soft to palpation, non-tender and non-distended GI Narrative: Obese. Extremity Extremity Narrative: Patient has limited range of motion of the Left hip due to pain with no obvious anatomic abnormalities or signs of recent injury. Skin Skin Narrative: Patient has no evidence of rash, abscess, wounds or jaundice. Neuro oriented x3, CN's II-XII intact bilaterally, moves all extremities and no focal motor deficits Sensorium / Orientation: awake, alert, oriented to person, oriented to place and oriented to time Speech: speech normal Psych affect normal Results Medical Records Data Attestation: I reviewed the patient's medical records Lab / Micro Data Attestation: I reviewed the patient's lab results. 09/15/24 17:40 09/15/24 17:40 Labs: Laboratory Results - last 24 hr 09/15/24 17:40: WBC 14.5 H, RBC 4.72, Hgb 15.0, Hct 46.5, MCV 98.5 H, MCH 31.8, MCHC 32.3, RDW Std Deviation 48.4 H, RDW Coeff of Nick 13.2, Plt Count 130 L, MPV 11.7, Immature Gran % (Auto) 0.500, Neut % (Auto) 83.0 H, Lymph % (Auto) 8.1 L, [place] % (Auto) 8.0, Eos % (Auto) 0.1, Baso % (Auto) 0.3, Absolute Neuts (auto) 12.1 H, Absolute Lymphs (auto) 1.18, Nucleated RBC % 0, PT 15.0 H, INR 1.2, APTT 28.5, Sodium Cancelled 09/15/24 17:40: Sodium 137, Potassium Cancelled 09/15/24 17:40: Potassium 4.1, Chloride Cancelled 09/15/24 17:40: Chloride 99, Carbon Dioxide Cancelled 09/15/24 17:40: Carbon Dioxide 24.4, Anion Gap Cancelled 09/15/24 17:40: Anion Gap 13, BUN Cancelled 09/15/24 17:40: BUN 22 H, Creatinine Cancelled 09/15/24 17:40: Creatinine 1.39 H, Estim Creat Clear Calc Cancelled 09/15/24 17:40: Estim Creat Clear Calc 59.40, Est GFR (MDRD) Non-Af Cancelled 09/15/24 17:40: Est GFR (MDRD) Non-Af 56 L, BUN/Creatinine Ratio Cancelled 09/15/24 17:40: BUN/Creatinine Ratio 16.1, Glucose Cancelled 09/15/24 17:40: Glucose 109 H, Calcium Cancelled 09/15/24 17:40: Calcium 9.3, Total Bilirubin Cancelled 09/15/24 17:40: Total Bilirubin 1.17, AST Cancelled 09/15/24 17:40: AST 34, ALT Cancelled 09/15/24 17:40: ALT 6, Alkaline Phosphatase Cancelled 09/15/24 17:40: Alkaline Phosphatase 72, Troponin T High Sens 47 H, NT pro BNP II 938 H 09/15/24 17:40: NT pro BNP II Cancelled, Total Protein Cancelled 09/15/24 17:40: Total Protein 7.4, Albumin Cancelled 09/15/24 17:40: Albumin 4.0, Globulin Cancelled 09/15/24 17:40: Globulin 3.4, Albumin/Globulin Ratio Cancelled 09/15/24 17:40: Albumin/Globulin Ratio 1.2, Lipase Cancelled 09/15/24 17:40: Lipase 9 L 09/15/24 17:41: Lactic Acid 1.1 09/15/24 19:00: Urine Color Yellow, Urine Clarity Sl. Cloudy, Urine pH 6.0, Ur Specific [place] 1.015, Urine Protein 30 H, Urine Glucose (UA) Normal, Urine Ketones 5 H, Urine Occult Blood 25 H, Urine Nitrite Positive H, Urine Bilirubin Negative, Urine Urobilinogen Normal, Ur Leukocyte Esterase 500 H, Urine RBC 0-5 SEEN, Urine WBC >100 SEEN, Ur Squamous Epith Cells 0-5 SEEN, Urine Bacteria 4+, Urine Mucus 0 SEEN 09/15/24 19:50: Troponin T Hi Sens 2 Hr 43 H Imaging Radiology Impression Brain CT 09/15/24 17:59 IMPRESSION: No acute intracranial abnormality. Reading Location: [facility] Chest X-Ray 09/15/24 18:20 IMPRESSION: Mild pulmonary vascular congestion. No focal consolidation. Reading Location: [facility] Hip/Pelvis X-Ray 09/15/24 18:20 IMPRESSION: 1. No acute fracture or dislocation. 2. Moderate-advanced bilateral hip osteoarthritis, more advanced on the left. Reading Location: [facility] Chest CT 09/15/24 19:12 IMPRESSION: No focal consolidations. Bibasilar subsegmental atelectasis. Minimal bibasilar bronchiectasis. Reading Location: [facility] Assessment & Plan Assessment/Plan (1) Acute cystitis without hematuria: (2) BPH (benign prostatic hyperplasia): QUALIFIERS: Lower urinary tract symptom detail: unspecified Lower urinary tract symptom presence: symptoms present Qualified Code(s): N40.1 - Benign prostatic hyperplasia with lower urinary tract symptoms (3) Acute on chronic urinary retention: (4) MICHAEL (acute kidney injury): (5) Elevated troponin: (6) Generalized weakness: (7) Fatigue: QUALIFIERS: Fatigue type: unspecified Qualified Code(s): R53.83 - Other fatigue (8) Obesity (BMI 30.0-34.9): (9) MARYJO (obstructive sleep apnea): (10) Thrombocytopenia: (11) Parkinson's disease: QUALIFIERS: Dyskinesia presence: without dyskinesia Fluctuating manifestations: unspecified whether manifestations fluctuate Qualified Code(s): G20.A1 - Parkinson's disease without dyskinesia, without mention of fluctuations PLAN: Plan 1. UA positive for Acute Cystitis; without hematuria with a corresponding Leukocytosis of 14.5 K present on admission in the setting of previously known BPH; with [id number] urinary retention and Mayes catheter placement on tamsulosin and suppressive nitrofurantoin (M-W-F) with infection suspected to be due to chronic Mayes and frequent self-catheterization - Admit to PCU. Continue empiric IV ceftriaxone begun in the ER and await culture and sensitivity data. Patient has new Mayes. Give acetaminophen prn for [id number] (level 1-5/10) pain or fever. Give oxycodone prn for severe (level 6-10/10) pain. Give ondansetron IV as needed for nausea and vomiting. 2. Suspected MICHAEL with elevated serum creatinine of 1.39 mg/dL present on admission (up from his baseline of 0.95 mg/dL last admission) complicating #1 - Gently volume resuscitate and recheck renal indices in AM to follow trend. 3. Mildly elevated troponin T of 47 ng/L and mildly elevated NT pro-BNP II of 938 pg/mL suspected to be due to mild acute cardiac strain likely due to #1 & #2 - Doubt ACS. Serialize troponin. Most recent echocardiogram done July 25, 2023 which revealed LVEF 65% with normal diastology for age. Check echocardiogram to reevaluate LVEF since it has been more than 1 year since his previous echo. 4. Generalized Weakness and Fatigue with Left Hip Pain in setting of known OA exacerbated by recent participation in cardiopulmonary rehabilitation - PT/OT and Case Management consult and treat on rounds in a.m. for further recommendations with help appreciated in advance. X-rays on admission showed no sign of fracture or dislocation. 5. Obesity; with BMI of 30.9 this admission plus MARYJO adding to the burden of disease outlined from #1 - #4 - Weight loss will be recommended. Check TSH. This complicates his case and may hamper recovery. 6. Moderate Thrombocytopenia of 130 K present on admission - Noted. Check CBC daily to follow trend. 7. Parkinson's disease; on carbidopa-levodopa TID plus ropinirole TID with Shy-Drager syndrome; on fludrocortisone followed by Dr. Hernandez of neurology adding to the medical complexity of #1 - #6 - Maintain current regimen. 8. History of tobacco abuse; with subsequent asthma/COPD on prednisone, budesonide BID, formoterol BID and duo-nebs q.4 hours prn - Stable with no evidence of acute flare at this time. Continue current treatment. 9. History of vocal cord dysfunction; with previous tracheostomy - Noted. 10. History of cricopharyngeal dysphagia - Noted. 11. Essential hypertension; on furosemide - Maintain present therapy. 12. Hyperlipidemia; on rosuvastatin - Hold statin in case of mild toxicity contributing to #4. Monitor for improvement and consider alternative agent if symptoms markedly improved. 13. Hypothyroidism; s/p thyroidectomy (1998) on levothyroxine - Resume levothyroxine as before and check TSH. 14. History of chronic diastolic CHF; with preserved LVEF - Stable with no signs of acute volume overload at this time. 15. History of DVT - Noted. 16. History of coronary artery stenosis; s/p RCA stent (2021) on BASA and clopidogrel - Continue BASA and colpidogrel as previous. 17. History of angioedema - Noted with no signs of recurrence at this time. 18. History of proctitis - Noted. 19. History of COVID-19 (10/2023) treated conservatively with oral Dexamethasone - Noted. 20. DVT prophylaxis - Enoxaparin 40 mg sq daily plus SCD's. Total time: Approximately (but not less than) 75 minutes. Charges/Coding Visit Charges Inpatient E&M: 45760 Init Hosp L3
[2024-09-15] MEDS: Azithromycin 500 MG in 0.9% Normal Saline (250mL Bag) 250 ML 250 MG IV (23:24)
[2024-09-15 23:55] LABS: Troponin T High Sens 4 HR 43 ng/L (<=22)
[2024-09-16] VITALS (10 sets, daily range): BP systolic 101–137; BP diastolic 62–89; PULSE 80–92; RESP 16–28; TEMP 36.8–37.1; O2SAT 90–98; BMI 30.8
--- OUTSIDE RECORDS SUMMARY | 2024-09-16 00:09 | XMS RPT_ITS | CCD ---
Author Organization [facility] Care Team Providers Care Tax Agent Name Role Phone Biju Lobo Unavailable Unavailable Unavailable Unavailable Unavailable Biju Lobo Unavailable Yvan Walker Unavailable Unavailable Macario Bond Unavailable Unavailable Princess Mireille Unavailable Unavailable Giovanni Cantu Unavailable Jayne Godinez Unavailable Dr. Biju Lobo Primary Care UnavailAlfa Florence Attending Brookea Dr. Biju Canales Primary Care Provider Dr. [...] 09 Dr. Biju Lobo Referring Provider Geno BROADCAST TECHNICIAN, BROADCAST TECHNICIAN-C Karen Attending Provider Dr. Biju Lobo Primary Care Provider [phone] Christian Henrandez Attending Provider [phone] Biju Lobo Primary Care Provider [phone] Biju Lobo Referring Provider Dr. German Nayak Attending Provider Dr. Biju Lobo Primary Care Provider [phone] Biju Lobo Referring Provider Geno BROADCAST TECHNICIAN, BROADCAST TECHNICIAN-C Karen Attending Provider Dr. German Nayak Attending Provider Dr. Christian Hernandez Attending Provider [phone] Dr. Harrison Macario Attending Provider Dr. Christian Hernandez Referring Provider [phone] Biju Lobo Primary Care Provider [phone] Biju Lobo Referring Provider Geno BROADCAST TECHNICIAN, BROADCAST TECHNICIAN-C Karen Attending Provider [phone] Dr. Moses Grady Emergency Provider Dr. Delfin Russell Admit Provider Dr. Delfin [...] Provider Dr. Christian Hernandez Referring Provider Geno BROADCAST TECHNICIAN, BROADCAST TECHNICIAN-C Karen Attending Provider [phone] Dr. Moses Grady Emergency Provider [phone] Drew, Dr. Lenz Admit Provider Drew, Dr. Lenz Other Provider Nito, Dr. Castellon Attending Provider Dr. Harrison Spears Referring Provider Drew, Dr. Lenz Attending Provider Dr. Harrison Spears Attending Provider Dr. Harrison Spears Other Provider Yamil POWELL, Biju A Primary Care Provider Biju Lobo DO Unavailable RJ TRAMMELL Attending Unavailable BIJU LOBO Primary Care Unavailable Dr. Biju Lobo Primary Care Provider Dr. Biju Lobo Referring Provider Dr. Gilbert Hoang Attending Provider Biju Lobo DO A Primary Care Provider Rajinder Grijalva MD Unavailable Biju Lobo DO Primary [...] Kathe CUNHA, Dr. Akbar Tatum Attending Provider Kathe CUNHA, Dr. Akbar Tatum Referring Provider [phone] Viktor CUNHA, Dr. Hunt Attending Provider Viktor CUNHA, Dr. Hunt Referring Provider Shamika GODFREY-CTita Attending Provider Biju Lobo DO Primary Care Provider Yamil POWELL, Dr. Peck Primary Care Provider Tonia CUNHA, Dr. Beasley Attending Provider Tonia CUNHA, Dr. Beasley Emergency Provider Yamil DO, Dr. Peck Referring Provider David CUNHA, Dr. Gonzales Attending Provider Kathe CUNHA, Dr. Akbar Tatum Attending Provider Kathe CUNHA, Dr. Akbar Tatum Referring Provider [phone] Viktor CUNHA, Dr. Hunt Attending Provider Viktor CUNHA, Dr. Hunt Referring Provider Shamika GODFREY-Tita Gale Attending Provider David CUNHA, Dr. Gonzales Referring Provider Amirah CUNHA, Dr. Terry Attending Provider [phone] BIJU LOBO A Referring Unavailable CAROLE, HEMANT W Attending Unavailable YAMILBIJU RAYMOND A Primary Care Unavailable CAROLE, HEMANT W Admitting Unavailable SELF, SELF Referring Unavailable CAROLE, HEMANT W Attending Unavailable YAMIL, BIJU A Primary Care Unavailable YAMIL, BIJU A Referring Unavailable CAROLE, HEMANT W Attending Unavailable YAMIL, BIJU A Primary Care Unavailable YAMIL, BIJU A Referring Unavailable YAMIL, BIJU A Primary Care Unavailable CAROLE, HEMANT W Attending Unavailable CAROLE, HEMANT W Referring Unavailable CAROLE, HEMANT W Attending Unavailable YAMIL, BIJU A Primary Care Unavailable YAMIL, BIJU A Referring Unavailable YAMIL, BIJU A Primary Care Unavailable CAROLE, HEMANT W Attending Unavailable YAMIL, BIJU A Primary Care Unavailable CAROLE, HEMANT W Referring Unavailable TEGAN, RAJINDER Angel Referring Unavailable CAROLE, HEMANT W Attending Unavailable YAMIL, BIJU A Primary Care Unavailable Shamika BROADCAST TECHNICIAN-C, Tita Maza Referring Provider Dr. Biju Lobo DO Primary Care Provider Shamika BROADCAST TECHNICIAN-CTita Other Provider Dr. Richard Munoz DO Attending Provider [phone] Biju Lobo DO Primary Care Provider Dr. Biju Lobo DO Referring Provider Dr. Christian Hernandez MD Attending Provider [phone] Dr. Biju Lobo DO Primary Care Provider Dr. Biju Lobo DO Primary Care Provider Dr. Gilbert Hoang MD Attending Provider Dr. Biju Lobo DO Referring Provider Dr. Richard Munoz DO Attending Provider Dr. Biju Lobo DO Primary Care Provider Dr. Biju Lobo DO Referring Provider Shamika GODFREY-CTita Attending Provider Dr. Richard Munoz DO Referring Provider [phone] Biju Lobo Primary Care Unavailable Tita Wick Attending Unavailable Tita Wick Referring Unavailable Christian Hernandez Attending Unavailable Yamil, Biju Primary Care Unavailable Christian Hernandez Referring Unavailable Yamil, Biju Primary Care Unavailable ViktorGilbert Attending Unavailable Yamil, Biju Referring Unavailable Yamil, Biju Primary Care Unavailable Ramos Randall Attending Unavailable Yamil, Biju Primary Care Unavailable Noah Morgan Attending Unavailable Tita Wick Referring Unavailable Yamil, Biju Primary Care Unavailable Tita Wick Attending Unavailable Yamil, Biju Primary Care Unavailable Nikolai Freeman Consulting Unavailable Nikolai Freeman Admitting Unavailable Delfin Russell Attending Unavailable Frida Newell Consulting Unavailable Danita Spaulding Attending Unavailable Yamil, Biju Primary Care Unavailable Pj Almanza Consulting Unavailable Almanza, Pj Admitting Unavailable Yamil, Biju Primary Care Unavailable Pj Almanza Attending Unavailable Archie, Pj Consulting Unavailable Almanza, Pj Admitting Unavailable Yamil, Biju Primary Care Unavailable Harrison Macario Attending Unavailable Christian Hernandez Referring Unavailable Richard Munoz Attending Unavailable Yamil, Biju Primary Care Unavailable Tita Wick Referring Unavailable ViktorGilbert lewis Referring Unavailable Gilbert Hoang Attending Unavailable Yamil, Biju Primary Care Unavailable Akbar Archuleta Attending Unavailable Akbar Archuleta Referring Unavailable Yamil, Biju Primary Care Unavailable Rj Trammell II Referring Unavailable Yamil, Biju Primary Care Unavailable Rj Trammell II Attending Unavailable Richard Munoz Attending Unavailable Richard Munoz Referring Unavailable Yamil, Biju Primary Care Unavailable Richard Munoz Attending Unavailable Richard Munoz Referring Unavailable Yamil, Biju Primary Care Unavailable Tita Wick Referring Unavailable Yamil, Biju Primary Care Unavailable Tita Wick Attending Unavailable Yamil, Biju Referring Unavailable Yamil, Biju Primary Care Unavailable Tita Wick Attending Unavailable Christian Hernandez Attending Unavailable Yamil, Biju Referring Unavailable Yamil, Biju Primary Care Unavailable Yamil, Biju Referring Unavailable Yamil, Biju Primary Care Unavailable Tita Wick Attending Unavailable ViktorGilbert Attending Unavailable Yamil, Biju Referring Unavailable Yamil, Biju Primary Care Unavailable Richard Munoz Attending Unavailable Yamil, Biju Primary Care Unavailable Tita Wick Consulting Unavailable Tita Wick Referring Unavailable Yamil, Biju Primary Care Unavailable Ramos Randall Attending Unavailable Yamil, Biju Primary Care Unavailable Yamil, Biju Referring Unavailable Baddour, Christian Attending Unavailable Yamil, Biju Primary Care Unavailable Yamil, Biju Referring Unavailable Baddour, Christian Attending Unavailable Yamil, Biju Primary Care Unavailable Tita Wick Attending Unavailable Yamil, Biju Referring Unavailable Yamil, Biju Referring Unavailable Yamil, Biju Primary Care Unavailable Baddoairam, Christian Attending Unavailable Baddoairam, Christian Attending Unavailable Yamil, Biju Referring Unavailable Yamil, Biju Primary Care Unavailable Yamil, Biju Primary Care Unavailable Richard Munoz Attending Unavailable Yamil, Biju Referring Unavailable Yamil, Biju Primary Care Unavailable Baddour, Christian Attending Unavailable Yamil, Biju Referring Unavailable Yamil, Biju Referring Unavailable Yamil, Biju Primary Care Unavailable Baddour, Christian Attending Unavailable Yamil, Biju Referring Unavailable Yamil, Biju Primary Care Unavailable Baddour, Christian Attending Unavailable Yamil, Biju Primary Care Unavailable Nikolai Freeman Admitting Unavailable Nikolai Freeman Consulting Unavailable Delfin Russell Attending Unavailable Frida Newell Consulting Unavailable Delfin Russell Consulting Unavailable Frida Newell Attending Unavailable Yamil, Biju Primary Care Unavailable Nikolai Freeman Consulting Unavailable Nikolai Freeman Admitting Unavailable Frida Newell Attending Unavailable Frida Newell Consulting Unavailable Nikolai Freeman Attending Unavailable Danita Spaulding Attending Unavailable Yamil, Biju Primary Care Unavailable Pj Almanza Consulting Unavailable Pj Almanza Admitting Unavailable Danita Spaulding Consulting Unavailable Yamil, Biju Primary Care Unavailable Karen Lora NP Attending Unavailable Yamil, Biju Referring Unavailable Baddour, Christian Attending Unavailable Yamil, Biju Primary Care Unavailable Baddour, Christian Referring Unavailable Allergies Allergy Classification Reported Allergen(s) Allergy Type Date of Onset Reaction(s) Facility (20 sources) Gemtesa TABS; Translations: [Gemtesa TABS] Allergy to drug (finding) 03-20-2023 Unknown [facility] (20 sources) vibegron; Translations: [VIBEGRON] Allergy to substance 01-24-2022 [facility] Medications Current Medications Medication Drug Class(es) Dates [...] % d rops Active 0 BUCCAL DAILY 02 08July 23, 2024 4:38pm secretions Take 1 to 2 drops buccally daily Start: 07-23-2024 Atropine 1 % d rops Active 0 BUCCAL DAILY July 23, 2024 4:38pm Take 1 to 2 drops buccally daily Start: 07-23-2024 End: 07-23-2024 Atropine 1 % drops Discontin ued 0 BUCCAL DAILY 02 08July 23, 2024 12:12pm July 23, 2024 4:39pm [...] % drops Discontin ued 0 BUCCAL DAILY 11 23March 18, 2024 3:17pm July 23, 2024 12:19pm [...] Active docusate sodium 50 mg / sennosides, custodial 8.6 mg oral tablet (1 source) Start: [...] (Perforomist) 20 mcg/2 mL solution for nebulization (11 sources) Start: 04-15-2024 take 1 mL by inhalation twice daily Formoterol Fumarate (Perforomist) 20 mcg/2 mL solution for nebulization Active 2 mL INHALATION TWICE A DAY 120 3 April 15, 2024 1:00am Start: 04-15-2024 take 1 mL by inhalat ion twice daily Formoterol Fumarate (Perforomist) 20 mcg/2 mL solution for nebulization Active 2 mL INHALATION TWICE A DAY April 15, 2024 1:00am Start: 04-15-2024 take 1 mL by inhalat ion twice daily Formoterol Fumarate (Perforomist) 20 mcg/2 mL solution for nebulization Active 2 mL INHALATION TWICE A DAY April 15, 2024 12:00am furosemide 40 mg [...] Ordered: 08-Dec-2021 Nevin Rogers MD Start : 08-Jun-2021 Active Start: 06-08-2021 Furosemide 40 MG Oral [...] Handicap placa rd Active 0 .Route .MEDSUPPLY September 30, 2022 11:00pm Expiration: 10/01/2025 Start: 10-01-[address] Active 0 .Route .MEDSUPPLY October 01, 2022 12:00am Expiration: 10/01/2025 3 [...] weeks Quantity: 1 Refills: 0 Ordered: 18-Jan-2021 Alondra Giovanni Start: 18-Jan-2021 Status: Other Generic Substitution Allowed [...] Gene Lemus Status: Discontinued Generic Substitution Allowed Motorized scooter (1 source) Start: 09-10-2024 Motorized scooter Active 0 .Route .MEDSUPPLY 1 September 10, 2024 12:00am Parkinson's disease Abnormal gait Parkinson's disease without dyskinesia, without mention of fluctuations Unspecified abnormalities of gait and mobility gait d/o (R26.9); Parkinson's disease (G20.A1) As directed nebulizer kits (11 sources) Start: 04-15-2024 nebulizer kits Active 0 [...] / nitrofurantoin, monohydrate 75 mg oral capsule (11 sources) Nitrofuran Antibacterial Start: 10-21-2023 Nitrofurantoin Monohyd/M-Cryst 100 mg capsule Active 100 mg PO MOWEFR October 21, 2023 12:00am bladder nystatin [id number] unt/ml oral suspension (20 sources) Polyene Antifungal [...] day for 10 days polyethylene glycol 3350 42465 mg powder for oral solution (1 source) [...] release Discontinued 20 meq PO DAILY 90 July 10, 2023 11:16am April 07, 2024 [...] Discontinued 40 mg PO DAILY 10 5 August 15, 2023 12:00am September 17, 2023 [...] tablet Discontinued 40 mg PO DAILY 10 January 24, 2022 1:00am May 17, 2022 [...] with food or milk. Respiratory Therapy Supplies [facility] (4 sources) Start: 09-20-2023 [facility] shiley cuffless tr[facility]. Please supply pt with 60 size 6IC75 inner cannulas per month. 60 Each 11 09/20/2023 Active revefenacin 0.0583 mg/ml inhalation solution (12 sources) Start: 04-15-2024 Revefenacin (Yupelri) 175 mcg/3 mL solution for nebulization Active 175 ug INHALATION daily 90 April 15, 2024 1:00am Revefenacin (Yup elri) 175 MCG/3ML Solution Inhale daily. Active rOPINIRole 1 mg oral tablet (15 sources) Nonergot Dopamine Agonist Start: 07-23-2024 take 1 tablet by mouth three times daily Ropinirole 1 mg tablet Active 1 mg PO THREE TIMES A DAY 90 July 23, 2024 12:00am Start: 05-26-2024 End: 07-23-2024 take 1 tablet by mouth three times daily Ropinirole 0.5 mg tablet Discontinued 0.5 mg PO THREE TIMES A DAY 90 May 26, 2024 12:00am July 23, 2024 12:17pm tamsulosin hydrochloride 0.4 mg oral capsule (20 sources) alpha-Adrenergic Shahid Start: 09-20-2023 tamsu losin (Flomax) 0.4 mg 24 hr capsule 09/20/2023 Active Start: 11-06-2022 take 2 capsules by m outh at bedtime Tamsulosin HCl - 0.4 MG Oral Capsule TAKE 2 CAPSULE Bedtime Quantity: 14 Refills: 0 Ordered: 06-Nov-2022 Rj Trammell II, MD Start : 06-Nov-2022 Active [...] Gene Lemus Start: 05-Jun-2021 Generic Substitution Allowed [id number] 200 actuat albuter ol 0.09 mg/actuat metered [...] Discontinued 1 {tbl} PO TWICE A DAY November 16, 2022 [...] Beds Quantity: 30 Refills: 1 Ordered: 08-Jun-2021 Grabieljose daniel Leandra Start: 08-Jun-2021 End: 06-Aug-2021 Generic Substitution Allowed [...] NMA INHALATION TWICE A DAY 1 November 15, [...] use Start: 11-16-2022 take 1 puff(s) by [facility] twice daily Budesonide-Formoterol (Symbicort) 160-4.5 mcg/actuation HFA aerosol inhaler Active 2 PUFF INHALATION TWICE A DAY November 15, 2022 11:00pm administer with spacer, rinse mouth after each use Start: 11-16-2022 take 1 puff(s) by [facility] twice daily Budesonide-Formoterol (Symbicort) 160-4.5 mcg/actuation HFA [...] / glycopyrrolate 0.009 mg/actuat metered dose inhaler (17 sources) Corticosteroid, beta2-Adrenergic Agonist Start: 09-03-2023 End: 06-24-2024 take 2 puff(s) by inhalation twice daily 2 puff, Inhalation, 2 TIMES DAILY, First dose on Sat09/03/23 at 1800, Until Discontinued Start: 07-09-2023 End: 09-18-2023 Lsnmrrowag-Bmllyunv-Ndmzuizl ol (Breztri Aerosphere) 160-9-4.8 mcg/actuation HFA aerosol inhaler Discontinued 2 NMA INHALATION TWICE A DAY 10.7 3 July 09, 2023 12:00am September 18, 2023 12:55pm breathing Start: 07-09-2023 End: 09-18-2023 Kcemkmbxlq-Ogzchaqe-Oeoryhzx ol (Breztri Aerosphere) 160-9-4.8 mcg/actuation HFA aerosol inhaler Discontinued 2 NMA INHALATION TWICE A DAY 10.7 July 09, 2023 12:00am September 18, 2023 12:55pm Start: 07-09-2023 End: 09-18-2023 Kxopanyfre-Mghphysl-Rodiotuf ol (Breztri Aerosphere) 160-9-4.8 mcg/actuation HFA aerosol inhaler Discontinued 2 NMA INHALATION TWICE A DAY 10.7 July 08, 2023 11:00pm September 18, 2023 11:55am [...] {tbl} PO THREE TIMES A DAY 540 November [...] tablet Discontinued 1 {tbl} PO .COMPLEX 90 June 06, 2022 12:00am [...] daily Quantity: 6 Refills: 0 Ordered: 29-Mar-2021 Rj Trammell II, MD Start : 29-Mar-2021 End [...] (20 sources) Dietary Cholesterol Absorption Inhibitor Start: 022 Ezetimibe 10 MG Oral Tablet Quantity: 30 [...] DAILY. Quantity: 90 Refills: 3 Ordered: 03-Nov-2022 Nevin Rogers MD Start : 11-Oct-2021 Active Start: [...] mg tablet Discontinued 750 mg PO DAILY January 24, 2022 1:00am [...] 24 hr Discontinued 12.5 mg PO DAILY 90 3 October 10, 2023 1:17pm October 29, 2023 [...] DAY. Quantity: 90 Refills: 3 Ordered: 23-Jun-2021 Jayne Mccann Start : 08-Jun-2021 Active Start: 06-08-2021 take [...] 4 mg oseltamivir 75 mg oral capsule (11 sources) Neuraminidase Inhibitor Start: 03-08-2024 End: 04-01-2024 take 1 capsule by mouth twice daily Oseltamivir (Tamiflu) 75 mg capsule Discontinued 75 mg PO TWICE A DAY 10 5 0 March 08, 2024 1:00am April 01, 2024 3:06pm oxyCODONE hydrochloride 5 mg oral tablet (14 sources) Opioid Agonist Start: 09-07-2023 End: 10-02-2023 take 1 tablet by mouth every six hours as needed for pain Oxycodone 5 mg tablet Discontinued 5 mg PO EVERY 6 HOURS as needed for pain (1-10) September 07, 2023 12:00am September 17, 2023 [...] 27-Mar-2022 Active tiZANidine 2 mg oral tablet (14 sources) Central alpha-2 Adrenergic Agonist Start: 06-21-2023 [...] daily. 08/29/2023 Discontinued (Discontinued by another clinician (aj mojica)) triamcinolone acetonide 1 mg/ml topical cream (20 [...] Chronic Chronic obstructive pulmonary disease and bronchiectasis (10 sources) Chronic obstructive pulmonary disease and bronchiectasis; Translations: [Other specified chronic obstructive pulmonary disease] Onset: Complications of surgical procedures or medical care (20 sources) Postoperative hypothyroidism; Translations: [Postsurgical hypothyroidism] Onset: 4 05-17-2022 Chronic Congestive heart failure; nonhypertensive (20 sources) Acute on chronic diastolic heart failure; Translations: [Acute on chronic diastolic heart failure] Onset: 5 06-07-2021 Chronic Coronary atherosclerosis and other heart disease (20 sources) Coronary arteriosclerosis; Translations: [Coronary atherosclerosis of unspecified type of vessel, rosebud or graft] Onset: 3 05-17-2022 Chronic Coronary [...] viral diseases Onset: 2 06-06-2021 Episodic Influenza (11 sources) Influenza due to Influenza A virus; [...] 06-06-2021 Episodic Other aftercare (1 source) Other group home (current) drug therapy; Translations: [Other ocean transportation intermediary (current) drug therapy] Onset: 2 Episodic Other and ill-defined heart disease (12 sources) Diastolic dysfunction; Translations: [Other ill-defined heart diseases] 06-21-2023 Chronic Other and ill-defined heart disease (1 source) Other ill-defined heart diseases; Translations: [Heart disease, unspecified] 06-21-2023 Chronic Other circulatory disease (20 sources) Disorder of carotid artery; Translations: [Disorder of arteries and arterioles, unspecified] 06-18-2023 Chronic Other circulatory disease (2 sources) Disorder of arteries and arterioles, unspecified; Translations: [Unspecified disorders of arteries and arterioles] Onset: 5 06-18-2023 Chronic Other circulatory disease (20 sources) Orthostatic hypotension; Translations: [Orthostatic hypotension] 07-02-2022 Episodic Other circulatory disease (14 sources) Clearing throat - hawking; Translations: [Other specified symptoms and signs involving the circulatory and respiratory systems] 05-16-2023 Episodic Other circulatory disease (11 sources) Transient hypotension; Translations: [Hypotension, unspecified] 11-05-2023 Episodic Other circulatory disease (11 sources) Nasal mucosa moist 06-10-2023 Episodic Other diseases of kidney and ureters (2 sources) Other obstructive and reflux uropathy; Translations: [Other obstructive and reflux uropathy] Onset: 4 Episodic Other gastrointestinal disorders (1 source) Abdominal distension, gaseous; Translations: [Flatulence, eructation, and gas pain] Onset: 2 06-06-2021 Episodic Other gastrointestinal disorders (20 sources) Cricopharyngeal disorder; Translations: [Dysphagia, pharyngeal phase] 11-02-2020 Episodic Other gastrointestinal disorders (19 sources) Diarrhea; Translations: [Diarrhea, unspecified] 03-16-2023 Episodic [...] injuries and conditions due to external causes (12 sources) Angioedema; Translations: [Angioneurotic edema, initial encounter] [...] Onset: 2 Episodic Other lower respiratory disease (17 sources) Cough; Translations: [Cough] 05-16-2023 Episodic Other [...] Episodic Other nutritional; endocrine; and metabolic disorders (11 sources) Body mass index 25-29 - overweight; [...] spasm] 07-29-2020 Episodic Other upper respiratory disease (12 sources) Vocal cord dysfunction; Translations: [Other diseases of vocal cords] 06-21-2023 Episodic Other upper respiratory disease (1 source) Other diseases of vocal cords; Translations: [Other diseases of vocal cords] 06-21-2023 Episodic Parkinson`s disease (20 sources) Parkinson's disease; Translations: [Parkinson's disease] Onset: 4 06-06-2022 Chronic Parkinson`s disease (11 sources) Parkinson`s disease; Translations: [Parkinson's disease without [...] Sleep apnea; Translations: [Unspecified sleep apnea] Onset: 05-17-2022 Chronic Residual codes; unclassified (20 sources) [...] source) Cough, unspecified; Translations: [Cough, unspecified] Onset: 5 Viral infection (11 sources) Disease caused by 2019-nCoV; Translations: [COVID-19] 10-22-2023 Episodic Viral infection (2 sources) COVID-19; Translations: [COVID-19] Onset: 4 Past or Other Problems Problem Classification Problem Date Documented Da te Episodic/Chronic Anal and rectal conditions (12 sources) Proctitis; Translations: [Other specified diseases of anus and rectum] Onset: 10-23-2023 10-22-2023 Episodic Conditions associated with dizziness or vertigo (13 sources) Dizziness; Translations: [Dizziness and giddiness] Onset: 05-18-2024 06-18-2023 Episodic Coronary atherosclerosis and other heart disease (20 sources) Presence of coronary angioplasty implant and graft; Translations: [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 artery] Onset: 05-19-2021 Episodic Comment on above: mid RCA-SKYLAR 3.5 x 26 mm Resolute Kelby E Codes: Adverse effects of medical drugs (12 sources) Adverse reaction to drug; Translations: [Adverse effect of unspecified drugs, medicaments and biological substances, initial encounter] Onset: 11-02-2023 10-30-2023 Episodic E Codes: Fall (12 sources) Fall; Translations: [Unspecified fall, initial encounter] Onset: 05-18-2024 09-09-2023 Episodic Fluid and electrolyte disorders (20 sources) Hypokalemia; Translations: [Hypokalemia] Onset: 11-02-2023 06-18-2023 Episodic Genitourinary symptoms and ill-defined conditions (20 sources) Poor stream of urine; Translations: [Slowing of urinary stream] Onset: 03-20-2023 05-17-2022 Episodic Mood disorders (6 sources) Mood disorders Onset: 07-10-2023 Resolved: 06-24-2024 07-10-2023 Other circulatory disease (9 sources) Orthostatic hypotension; [...] Translations: [Tobacco use] Onset: 09-25-2022 Episodic Syncope (12 sources) Near syncope; Translations: [Syncope and collapse] Onset: 11-02-2023 10-29-2023 Episodic Unclassified (5 sources) Nasal mucosa moist; Translations: [Moist mucous membranes of ear, nose, and throat] 05-16-2023 Unclassified (4 sources) Onset: 05-29-2023 Resolved: 10-17-2023 05-29-2023 Urinary tract infections (13 sources) Recurrent urinary tract infection; Translations: [Urinary tract infection, site not specified] Onset: 10-25-2023 10-17-2023 Episodic Results Test Name Value Interpretation Reference Range Facility [place] - History AND Physicalon 09-07-2024 [place] - History & Physical Normal [facility] [place] - Individual Treatment Pl anon 09-07-2024 LA - Individual Treatment Plan Normal [facility] Pulmonary Visit Reporton Pulmonary Visit Report Normal [facility] Chest without Contraston Chest without Contrast Normal [facility] Neurology Visit Reporton Neurology Visit Report Normal [facility] Pulmonary Visit Reporton Pulmonary Visit Report Normal [facility] Modified Barium Swallow Stud yon 07-10-2024 Modified Barium Swallow Study Normal [facility] 6 Minute Walk Teston 025 6 Minute Walk Test Normal [facility] Carotid Duplex Ultrasoundon 06-22-2024 Carotid Duplex Ultrasound Normal [facility] Duplex ultrasound of carotid artery reportOrdered By: Harrison Macario on 06-22-2024 Study report [facility] [facility] [place] [address] Carotid Duplex Ultrasound 06/22/24 1304 MR#: [id number] Acct: [id number] Name: FREDDIE COLE Rep #:[id number] : 1960 64 From: [place] Dyer Attending Dr: Dr. Christian Hernandez MD Status: REG CLI Ordering Dr: Christian Hernandez MD Date: 06/22/24 Location: [facility] Sex: M C Admitted: Reason For Study [...] the left vertebral artery. Procedure Carotid Duplex 00179. This is a Carotid Duplex examination using [...] Date Dictated: 06/22/24 1304 Date Transcribed: 06/22/241736 Doll Wig Maker Rooted Hair: Signed [facility] Work Phone: Pulmonary Visit Reporton Pulmonary Visit Report Normal [facility] Neurology Visit Reporton Neurology Visit Report Normal [facility] Pulmonary Visit Reporton Pulmonary Visit Report Normal [facility] Comprehensive Metabolic Prof ilon 04-14-2024 Albumin [Mass/Vol] 3.9 g/dL Normal 3.2-5.0 [facility] Comment on above: Performed By: #### L 500.4050, L500.4107 ####[facility] [address] [place], [place], [id number] Albumin/Globulin [Mass ratio] 1.1 {ratio} Normal 0.9-2.4 [facility] Comment on above: Performed By: #### L 500.4050, L500.4100 ####[facility] [address] [place], [address] ALK P 81 U/L Normal 45-117 [facility] Comment on above: Performed By: #### L 500.4050, L500.4100 ####[facility] [address] [place], [address] ALT [Catalytic activity/Vol] 27 U/L Normal 16-61 [facility] Comment on above: Performed By: #### L 500.4050, L500.4100 ####[facility] [address] [place], [address] AST [Catalytic activity/Vol] 18 U/L Normal 15-37 [facility] Comment on above: Performed By: #### L 500.4050, L500.4100 ####[facility] [address] [place], [address] Bilirubin [Mass/Vol] 0.80 mg/dL Normal 0.20-1.00 [facility] Comment on above: Result Comment: For patients on eltrombopag therapy, use of Dimension [place] TBIL is not recommended. Performed By: #### L 500.4050, L500.4100 ####[facility] [address] [place], [address] BUN/CRE 18.9 RATIO Normal 10-20 [facility] Comment on above: Performed By: #### L 500.4050, L500.4100 ####[facility] [address] [place], [address] CA,Total 9.3 mg/dL Normal 8.5-10.1 [facility] Comment on above: Performed By: #### L 500.4050, L500.4100 ####[facility] [address] [place], [address] Chloride [Moles/Vol] 106 mmol/L Normal 98-107 [facility] Comment on above: Performed By: #### L 500.4050, L500.4100 ####[facility] [address] [place], [address] CO2 [Moles/Vol] 30.0 mmol/L Normal 21.0-32.0 [facility] Comment on above: Performed By: #### L 500.4050, L500.4100 ####[facility] [address] [place], [address] Creatinine [Mass/Vol] 0.95 mg/dL Normal 0.70-1.30 [facility] Comment on above: Result Comment: The validity of the calculated GFR GFRAA in patients over70 years has not been determined. Clinical correlation isessential. Performed By: #### L 500.4050, L500.4100 ####[facility] [address] [place], [address] EST GFR - AA 102 mL/min Normal >60 [facility] Comment on above: Result Comment: Afri can English GFR Calc Performed By: #### L 500.4050, L500.4100 ####[facility] [address] [place], [address] GAP 5 Normal 5-15 [facility] Comment on above: Performed By: #### L 500.4050, L500.4100 ####[facility] [address] [place], [address] GFR/1.73 sq M.predicted among non-blacks MDRD (S/P/Bld) [Vol rate/Area] 84 mL/min/{1.73_m2} Normal >60 [facility] Comment on above: Result Comment: Non- GFR Calc Performed By: #### L 500.4050, L500.4100 ####[facility] [address] [place], [address] Globulin (S) [Mass/Vol] 3.5 g/dL Normal 2.2-4.2 [facility] Comment on above: Performed By: #### L 500.4050, L500.4100 ####[facility] [address] [place], [address] Glucose [Mass/Vol] 95 mg/dL Normal 74-106 [facility] Comment on above: Performed By: #### L 500.4050, L500.4100 ####[facility] [address] [place], [address] Potassium [Moles/Vol] 4.2 mmol/L Normal 3.5-5.1 [facility] Comment on above: Performed By: #### L 500.4050, L500.4100 ####[facility] [address] [place], [address] Sodium [Moles/Vol] 141 mmol/L Normal 136-145 [facility] Comment on above: Performed By: #### L 500.4050, L500.4100 ####[facility] [address] [place], [address] T PROT 7.4 g/dL Normal 6.4-8.2 [facility] Comment on above: Performed By: #### L 500.4050, L500.4100 ####[facility] [address] [place], [address] Urea nitrogen [Mass/Vol] 18 mg/dL Normal 7-18 [facility] Comment on above: Performed By: #### L 500.4050, L500.4100 ####[facility] [address] [place], [address] Lipid Profileon 04-14-2024 Cholesterol [Mass/Vol] 137 mg/dL Normal 200 [facility] Comment on above: Result Comment: <200 mg/dL Desirable 200-240 mg/dL Borderline >240 mg/dL High Risk Performed By: #### L 500.4050, L500.4100 ####[facility] [address] [place], [address] Cholesterol in HDL [Mass/Vol] 64 mg/dL Normal [facility] Comment on above: Result Comment: The drugs N-Acetylcysteine and Metamizole may falselydepress this assay. Reference Range HDL <40 mg/dL Low HDL Cholesterol HDL >or= 60 mg/dL High HDL Cholesterol Performed By: #### L 500.4050, L500.4100 ####[facility] [address] [place], [address] Cholesterol in LDL [Mass/Vol] 56 mg/dL Normal 0-130 [facility] Comment on above: Performed By: #### L 500.4050, L500.4100 ####[facility] [address] [place], [address] Cholesterol in VLDL [Mass/Vol] 17 mg/dL Normal 5-40 [facility] Comment on above: Performed By: #### L 500.4050, L500.4100 ####[facility] [address] [place], [address] Triglyceride [Mass/Vol] 85 mg/dL Normal [facility] Comment on above: Result Comment: The drugs N-Acetylcysteine and Metamizole may falselydepress this assay.Serum Triglycerides Reference Interval Normal <150 mg/dL Borderline high 150 - 199 mg/dL High 200 - 499 mg/dL Very High > or = 500 mg/dL Performed By: #### L 500.4050, L500.4100 ####[facility] [address] [place], [address] Albumin to globulin ratioOrd ered By: Gilbert Hoang on 04-13-2024 Albumin/Globulin [Mass ratio] 1.1 {ratio} 0.9-2.4 [facility] Bilirubin, totalOrdered By: Gilbert Hoang on 04-13-2024 Bilirubin [Mass/Vol] 0.80 mg/dL 0.20-1.00 [facility] Comment on above: For patients on eltr ombopag therapy, use of Dimension [place] TBIL is not recommended. Blood urea nitrogen (BUN)/cr eatinine ratioOrdered By: Gilbert Hoang on 04-13-2024 Urea nitrogen/Creatinine [Mass ratio] 18.9 mg/mg 10-20 [facility] Carbon dioxide measurementOr dered By: Gilbert Hoang on 04-13-2024 CO2 [Moles/Vol] 30.0 mmol/L 21.0-32.0 [facility] Chloride measurementOrdered By: Gilbert Hoang on 04-13-2024 Chloride [Moles/Vol] 106 mmol/L 98-107 [facility] Estimated glomerular filtrat ion rate (GFR) AmericanOrdered By: Gilbert Hoang on 04-13-2024 Estimated GFR (MDRD) Amer 102 mL/min >60 [facility] Comment on above: GFR Calc Glomerular filtration rate ( GFR) estimationOrdered By: Gilbert Hoang on 04-13-2024 Estimated GFR (MDRD) Non-Af Amer 84 mL/min >60 [facility] Comment on above: Non- GFR Calc GFR/1.73 sq M.predicted among non-blacks MDRD (S/P/Bld) [Vol rate/Area] 84 mL/min/{1.73_m2} >60 [facility] Comment on above: Non- GFR Calc Glucose measurementOrdered B y: Gilbert Hoang on 04-13-2024 Glucose [Mass/Vol] 95 mg/dL 74-106 [facility] High density lipoprotein (HD L) measurementOrdered By: Gilbert Hoang on 04-13-2024 Cholesterol in HDL [Mass/Vol] 64 mg/dL >40 [facility] Comment on above: The drugs N-Acetylcy steine and Metamizole may falsely depress this assay. Reference Range HDL <40 mg/dL Low HDL Cholesterol HDL >or= 60 mg/dL High HDL Cholesterol Laboratory - Chemistry and C hemistry - challengeOrdered By: Gilbert Hoang on 04-13-2024 AST [Catalytic activity/Vol] 18 U/L 15-37 [facility] Low density lipoprotein (LDL ) cholesterol measurementOrdered By: Gilbert Hoang on 04-13-2024 Cholesterol in LDL [Mass/Vol] 56 mg/dL 0-130 [facility] Potassium measurementOrdered By: Gilbert Hoang on 04-13-2024 Potassium [Moles/Vol] 4.2 mmol/L 3.5-5.1 [facility] Serum anion gap measurementO rdered By: Gilbert Hoang on 04-13-2024 Anion gap [Moles/Vol] 5 mmol/L 5-15 [facility] Serum globulin measurementOr dered By: Gilbert Hoang on 04-13-2024 Globulin (S) [Mass/Vol] 3.5 g/dL 2.2-4.[address] [facility] Serum or plasma alanine hollingsworth otransferase (ALT) measurementOrdered By: Gilbert Hoang on 04-13-2024 ALT [Catalytic activity/Vol] 27 U/L 16-61 [facility] Serum or plasma albumin leona urement (mass/volume)Ordered By: Gilbert Hoang on 04-13-2024 Albumin [Mass/Vol] 3.9 g/dL 3.2-5.0 [facility] Serum or plasma alkaline dorian sphatase measurementOrdered By: Gilbert Hoang on 04-13-2024 ALP [Catalytic activity/Vol] 81 U/L 45-117 [facility] Serum or plasma calcium leona urement (mass/volume)Ordered By: Gilbert Hoang on 04-13-2024 Calcium [Mass/Vol] 9.3 mg/dL 8.5-10.1 [facility] Serum or plasma cholesterol measurement (mass/volume)Ordered By: Gilbert Hoang on 04-13-2024 Cholesterol [Mass/Vol] 137 mg/dL <200 [facility] Comment on above: <200 mg/dL Desirable 200-240 mg/dL Borderline >240 mg/dL High Risk Serum or plasma creatinine m easurement (mass/volume)Ordered By: Gilbert Hoang on 04-13-2024 Creatinine [Mass/Vol] 0.95 mg/dL 0.70-1.30 [facility] Comment on above: The validity of the calculated GFR & GFRAA in patients over 70 years has not been determined. Clinical correlation is essential. Serum or plasma urea nitroge n measurement (mass/volume)Ordered By: Gilbert Hoang on 04-13-2024 Urea nitrogen [Mass/Vol] 18 mg/dL 7-18 [facility] Sodium levelOrdered By: Ramiro Hoang on 04-13-2024 Sodium [Moles/Vol] 141 mmol/L 136-145 [facility] Total proteinOrdered By: Christie Hoang on 04-13-2024 Protein [Mass/Vol] 7.4 g/dL 6.4-8.2 [facility] Triglycerides measurementOrd ered By: Gilbert Hoang on 04-13-2024 Triglyceride [Mass/Vol] 85 mg/dL <[address] [facility] Comment on above: The drugs N-Acetylcy steine and Metamizole may falsely depress this assay.Serum Triglycerides Reference Interval Normal <150 mg/dL Borderline high 150 - 199 mg/dL High 200 - 499 mg/dL Very High > or = 500 mg/dL Very low density lipoprotein (VLDL) cholesterol measurementOrdered By: Gilbert Hoang on 04-13-2024 Very low density lipoprotein (VLDL) cholesterol measurement 17 mg/dL 5-40 [facility] VLDL Cholesterol 17 mg/dL 5-40 [facility] Cardiology Visit Reporton Cardiology Visit Report Normal [facility] Bilirubin Test strip Ql (U)O rdered By: Akbar Archuleta on 03-24-2024 Bilirubin Ql (U) Negative Negative [facility] Glucose Ql (U)Ordered By: Heidi Archuleta on 03-24-2024 Urine Glucose (UA) Normal mg/dl Normal [facility] Ketones Test strip Ql (U)Ord ered By: Akbar Archuleta on 03-24-2024 Ketones Ql (U) Negative Negative [facility] Nitrite Test strip Ql (U)Ord ered By: Akbar Archuleta on 03-24-2024 Nitrite Ql (U) Negative Negative [facility] Protein Test strip Ql (U)Ord ered By: Akbar Archuleta on 03-24-2024 Protein Ql (U) Negative Negative [facility] Urinalysis, Routine (Dipstic k)on 03-24-2024 BILIRUBIN URINE Negative Normal Negative [facility] Comment on above: Order Comment: Urine , Random Performed By: #### L 400.2010 ####[facility] [address] [place], [address] Clarity (U) Clear Normal Clear [facility] Comment on above: Order Comment: Urine , Random Performed By: #### L 400.2010 ####[facility] [address] [place], [address] Color (U) Yellow Normal Yellow [facility] Comment on above: Order Comment: Urine , Random Performed By: #### L 400.2010 ####[facility] [address] [place], [address] GLUCOSE, UR Normal Normal Normal [facility] Comment on above: Order Comment: Urine , Random Performed By: #### L 400.2010 ####[facility] [address] [place], [address] KETONE UR Negative Normal Negative [facility] Comment on above: Order Comment: Urine , Random Performed By: #### L 400.2010 ####[facility] [address] [place], [address] LEUK ESTERASE Negative Normal Negative [facility] Comment on above: Order Comment: Urine , Random Performed By: #### L 400.2010 ####[facility] [address] [place], [address] Nitrite Ql (U) Negative Normal Negative [facility] Comment on above: Order Comment: Urine , Random Performed By: #### L 400.2010 ####[facility] [address] [place], [address] OCCULT BLOOD-UR Negative Normal Negative [facility] Comment on above: Order Comment: Urine , Random Performed By: #### L 400.2010 ####[facility] [address] [place], [address] pH UR 5.0 Normal 5.0 - 8.0 [facility] Comment on above: Order Comment: Urine , Random Performed By: #### L 400.2010 ####[facility] [address] [place], [address] PROT DIPSTX Negative Normal Negative [facility] Comment on above: Order Comment: Urine , Random Performed By: #### L 400.2010 ####[facility] [address] [place], [address] SP.GR. DIPSTX 1.025 Normal 1.002-1.030 [facility] Comment on above: Order Comment: Urine , Random Performed By: #### L 400.2010 ####[facility] [address] [place], [address] UROBILI Normal Normal Normal [facility] Comment on above: Order Comment: Urine , Random Performed By: #### L 400.2010 ####[facility] [address] [place], [address] Urine blood detectionOrdered By: Akbar Archuleta on 03-24-2024 Urine Occult Blood Negative Negative [facility] Urine clarityOrdered By: Jeremias Archuleta on 03-24-2024 Clarity (U) Clear Clear [facility] Urine color determinationOrd ered By: Akbar Archuleta on 03-24-2024 Color (U) Yellow Yellow [facility] Urine glucose detectionOrder ed By: Akbar Archuleta on 03-24-2024 Glucose Ql (U) Normal mg/dl Normal [facility] Urine leukocyte esterase det ection by dipstickOrdered By: Akbar Archuleta on 03-24-2024 Leukocyte esterase Test strip Ql (U) Negative Negative [facility] Urine pHOrdered By: Akbar aggarwal on 03-24-2024 pH (U) 5.0 [pH] 5.0 - 8.0 [facility] Urine specific gravity measu rementOrdered By: Akbar Archuleta on 03-24-2024 Specific gravity (U) [Rel density] 1.025 1.002-1.030 [facility] Urine urobilinogen measureme ntOrdered By: Akbar Whartonano on 03-24-2024 Urobilinogen Ql (U) Normal mg/dl Normal [facility] Urobilinogen Ql (U)Ordered B y: Akbar Archuleta on 03-24-2024 Urine Urobilinogen Normal mg/dl Normal [facility] Neurology Visit Reporton Neurology Visit Report Normal [facility] Respiratory Cultureon 2024 RESPC Normal [facility] Comment on above: Performed By: #### M 100.1999, M100.2400 ####[facility] [address] [place], [place], [address] Gram Stainon 03-09-2024 GS Acceptable Specimen? Yes (<25 Epithelial cells per/lpf) Gram Stain 3+ White Blood Cells 1+ Gram positive cocci 1+ Gram negative diplococci No Epithelial cells 1+ Gram positive rods Normal [facility] Comment on above: Performed By: #### M 100.1999, M100.2400 ####[facility] [address] [place], [address] Chest PA and Lateralon 03-08 Chest PA and Lateral Normal [facility] Emergency Department Summary on 03-08-2024 Emergency Department Summary Normal [facility] Gram stainOrdered By: Brigitte Randall on 03-08-2024 Microscopic observation Gram stain Nom (Unsp spec) [facility] Microscopic observation Gram stain Nom (Unsp spec) [facility] Influenza virus A and B and SARS-CoV-2 (COVID-19) and Respiratory syncytial virus RNAOrdered By: Ramos Randall on 03-08-2024 SARS-CoV-2 (COVID-19) RNA YOLY+probe Ql (Unsp spec) Influenzae A Abnormal [facility] SARS-CoV-2 (COVID-19) RNA YOLY+probe Ql (Unsp spec) Influenzae A Abnormal [facility] M100.678on 03-08-2024 M100.678 Normal [facility] Comment on above: Performed By: #### M 100.678 ####[facility] [address] [facility] [address] Microbial respiratory cultur eOrdered By: Ramos Randall on 03-08-2024 Microorganism identified Cx Nom (Unsp spec) Stenotrophomonas maltophilia Abnormal [facility] Microorganism identified Cx Nom (Unsp spec) Moraxella Catarrhalis Abnormal [facility] Microorganism identified Cx Nom (Unsp spec) Streptococcus pneumoniae Abnormal [facility] Microorganism identified Cx Nom (Unsp spec)Ordered By: Ramos Randall on 03-08-2024 Respiratory Culture Stenotrophomonas maltophilia Abnormal [facility] Respiratory Culture Moraxella Catarrhalis Abnormal [facility] Respiratory Culture Streptococcus pneumoniae Abnormal [facility] Office Visit Reporton 2023 Office Visit Report Normal [facility] Office Visit Reporton 2023 Office Visit Report Normal [facility] Office Visit Reporton 2023 Office Visit Report Normal [facility] Neurology Visit Reporton Neurology Visit Report Normal [facility] Respiratory Cultureon 2023 RESPC Mixed normal respira tory bobbi. No Haemophilus, Streptococcus pneumoniae, beta-hemolytic Streptococcus or Staphylococcus aureus isolated. Normal [facility] Comment on above: Performed By: #### M 100.2400, M100.2000 ####[facility] [address] [facility] [address] Discharge Instructionon 10-19 Discharge Instruction Normal [facility] Basic Metabolic Profile (BMP )on 11-01-2023 BUN/CRE 19.7 RATIO Normal 10-20 [facility] Comment on above: Performed By: #### L 100.0500, L500.2500 ####[facility] [address] [facility] [address] CA,Total 8.5 mg/dL Normal 8.5-10.1 [facility] Comment on above: Performed By: #### L 100.0500, L500.2500 ####[facility] [address] [place], [address] Chloride [Moles/Vol] 107 mmol/L Normal 98-107 [facility] Comment on above: Performed By: #### L 100.0500, L500.2500 ####[facility] [address] [place], [address] CO2 [Moles/Vol] 27.0 mmol/L Normal 21.0-32.0 [facility] Comment on above: Performed By: #### L 100.0500, L500.2500 ####[facility] [address] [place], [address] Creatinine [Mass/Vol] 0.81 mg/dL Normal 0.70-1.30 [facility] Comment on above: Result Comment: The validity of the calculated GFR GFRAA in patients over70 years has not been determined. Clinical correlation isessential. Performed By: #### L 100.0500, L500.2500 ####[facility] [address] [place], [address] ECRCL 100.33 ml/min Normal [facility] Comment on above: Performed By: #### L 100.0500, L500.2500 ####[facility] [address] [place], [address] EST GFR - AA 123 mL/min Normal >60 [facility] Comment on above: Result Comment: Afri can English GFR Calc Performed By: #### L 100.0500, L500.2500 ####[facility] [address] [place], [address] GAP 6 Normal 5-15 [facility] Comment on above: Performed By: #### L 100.0500, L500.2500 ####[facility] [address] [place], [address] GFR/1.73 sq M.predicted among non-blacks MDRD (S/P/Bld) [Vol rate/Area] 101 mL/min/{1.73_m2} Normal >60 [facility] Comment on above: Result Comment: Non- GFR Calc Performed By: #### L 100.0500, L500.2500 ####[facility] [address] [place], [address] Glucose [Mass/Vol] 100 mg/dL Normal 74-106 [facility] Comment on above: Result Comment: Fast ing Glucose result from 100 to 125 mg/dLsuggests IMPAIRED HOMEOSTASIS per A.D.A. criteria. Performed By: #### L 100.0500, L500.2500 ####[facility] [address] [place], [address] Potassium [Moles/Vol] 3.9 mmol/L Normal 3.5-5.1 [facility] Comment on above: Performed By: #### L 100.0500, L500.2500 ####[facility] [address] [place], [address] Sodium [Moles/Vol] 140 mmol/L Normal 136-145 [facility] Comment on above: Performed By: #### L 100.0500, L500.2500 ####[facility] [address] [place], [address] Urea nitrogen [Mass/Vol] 16 mg/dL Normal 7-18 [facility] Comment on above: Performed By: #### L 100.0500, L500.2500 ####[facility] [address] [place], [address] CBC-Complete Blood Cnt No Di ffon 11-01-2023 Erythrocyte distribution width (RBC) [Ratio] 14.1 % Normal 11.6-14.6 [facility] Comment on above: Performed By: #### L 100.0500, L500.2500 ####[facility] [address] [place], [address] Hematocrit (Bld) [Volume fraction] 42.9 % Normal 40-54 [facility] Comment on above: Performed By: #### L 100.0500, L500.2500 ####[facility] [address] [place], [address] Hemoglobin (Bld) [Mass/Vol] 13.8 g/dL Normal 13.0-16.5 [facility] Comment on above: Performed By: #### L 100.0500, L500.2500 ####[facility] [address] [place], [address] MCH (RBC) [Entitic mass] 30.5 pg Normal 27.0-32.0 [facility] Comment on above: Performed By: #### L 100.0500, L500.2500 ####[facility] [address] [place], [address] MCHC (RBC) [Mass/Vol] 32.2 g/dL Normal 32-36 [facility] Comment on above: Performed By: #### L 100.0500, L500.2500 ####[facility] [address] [place], [address] MCV (RBC) [Entitic vol] 94.9 fL High 80-[address] [facility] Comment on above: Performed By: #### L 100.0500, L500.2500 ####[facility] [address] [place], [address] Platelet mean volume (Bld) [Entitic vol] 11.6 fL Normal 6.2-12.0 [facility] Comment on above: Performed By: #### L 100.0500, L500.2500 ####[facility] [address] [place], [address] Platelets (Bld) [#/Vol] 196 10*3/uL Normal 150-450 [facility] Comment on above: Performed By: #### L 100.0500, L500.2500 ####[facility] [address] [place], [address] RBC (Bld) [#/Vol] 4.52 10*6/uL Low 4.6-6.2 [facility] Comment on above: Performed By: #### L 100.0500, L500.2500 ####[facility] [address] [place], [address] RDW SD 49.2 fl High 35.1-43.9 [facility] Comment on above: Performed By: #### L 100.0500, L500.2500 ####[facility] [address] [place], [address] WBC (Bld) [#/Vol] 8.2 10*3/uL Normal 4.4-11.0 [facility] Comment on above: Performed By: #### L 100.0500, L500.2500 ####[facility] [address] [place], [address] Basic Metabolic Profile (BMP )on 10-31-2023 BUN/CRE 19.1 RATIO Normal 10-20 [facility] Comment on above: Performed By: #### L 501.2300, L500.2500, L501.5200 ####[facility] [address] [place], [address] CA,Total 8.5 mg/dL Normal 8.5-10.1 [facility] Comment on above: Performed By: #### L 501.2300, L500.2500, L501.5200 ####[facility] [address] [place], [address] Chloride [Moles/Vol] 106 mmol/L Normal 98-107 [facility] Comment on above: Performed By: #### L 501.2300, L500.2500, L501.5200 ####[facility] [address] [place], [address] CO2 [Moles/Vol] 28.0 mmol/L Normal 21.0-32.0 [facility] Comment on above: Performed By: #### L 501.2300, L500.2500, L501.5200 ####[facility] [address] [place], [address] Creatinine [Mass/Vol] 0.78 mg/dL Normal 0.70-1.30 [facility] Comment on above: Result Comment: The validity of the calculated GFR GFRAA in patients over70 years has not been determined. Clinical correlation isessential. Performed By: #### L 501.2300, L500.2500, L501.5200 ####[facility] [address] [place], [address] ECRCL 100.81 ml/min Normal [facility] Comment on above: Performed By: #### L 501.2300, L500.2500, L501.5200 ####[facility] [address] [place], [address] EST GFR - AA 128 mL/min Normal >60 [facility] Comment on above: Result Comment: Afri can English GFR Calc Performed By: #### L 501.2300, L500.2500, L501.5200 ####[facility] [address] [place], [address] GAP 3 Low 5-15 [facility] Comment on above: Performed By: #### L 501.2300, L500.2500, L501.5200 ####[facility] [address] [place], [address] GFR/1.73 sq M.predicted among non-blacks MDRD (S/P/Bld) [Vol rate/Area] 105 mL/min/{1.73_m2} Normal >60 [facility] Comment on above: Result Comment: Non- GFR Calc Performed By: #### L 501.2300, L500.2500, L501.5200 ####[facility] [address] [place], [address] Glucose [Mass/Vol] 116 mg/dL High 74-106 [facility] Comment on above: Result Comment: Fast ing Glucose result from 100 to 125 mg/dLsuggests IMPAIRED HOMEOSTASIS per A.D.A. criteria. Performed By: #### L 501.2300, L500.2500, L501.5200 ####[facility] [address] [place], [address] Potassium [Moles/Vol] 4.0 mmol/L Normal 3.5-5.1 [facility] Comment on above: Performed By: #### L 501.2300, L500.2500, L501.5200 ####[facility] [address] [place], [address] Sodium [Moles/Vol] 137 mmol/L Normal 136-145 [facility] Comment on above: Performed By: #### L 501.2300, L500.2500, L501.5200 ####[facility] [address] [place], [address] Urea nitrogen [Mass/Vol] 15 mg/dL Normal 7-18 [facility] Comment on above: Performed By: #### L 501.2300, L500.2500, L501.5200 ####[facility] [address] [place], [address] CBC W/Diff, Automatedon -02 19-2023 Absolute Lymph 1.25 X10 3/uL Normal 0.83-4.51 [facility] Comment on above: Performed By: #### L 100.0100 ####[facility] [address] [place], [address] Absolute Neut 7.7 X10 3/uL Normal 2.0-7.7 [facility] Comment on above: Performed By: #### L 100.0100 ####[facility] [address] [place], [address] Basophils/100 WBC (Bld) 0.2 % Normal 0-[address] [facility] Comment on above: Performed By: #### L 100.0100 ####[facility] [address] [place], [address] Eosinophils/100 WBC (Bld) 0.9 % Normal 0-5 [facility] Comment on above: Performed By: #### L 100.0100 ####[facility] [address] [place], [address] Erythrocyte distribution width (RBC) [Ratio] 13.8 % Normal 11.6-14.6 [facility] Comment on above: Performed By: #### L 100.0100 ####[facility] [address] [place], [address] Hematocrit (Bld) [Volume fraction] 41.9 % Normal 40-54 [facility] Comment on above: Performed By: #### L 100.0100 ####[facility] [address] [place], [address] Hemoglobin (Bld) [Mass/Vol] 13.5 g/dL Normal 13.0-16.5 [facility] Comment on above: Performed By: #### L 100.0100 ####[facility] [address] [place], [address] IG% 0.700 Normal 0.0-0.9 [facility] Comment on above: Result Comment: IG% - Immature Granulocytes (promyelocytes, myelocytes andmetamyelocytes) > 1% indicates that a LEFT SHIFT is Present. Performed By: #### L 100.0100 ####[facility] [address] [place], [address] Lymphocytes/100 WBC (Bld) 12.8 % Low 19-41 [facility] Comment on above: Performed By: #### L 100.0100 ####[facility] [address] [place], [address] MCH (RBC) [Entitic mass] 30.7 pg Normal 27.0-32.0 [facility] Comment on above: Performed By: #### L 100.0100 ####[facility] [address] [place], [address] MCHC (RBC) [Mass/Vol] 32.2 g/dL Normal 32-36 [facility] Comment on above: Performed By: #### L 100.0100 ####[facility] [address] [place], [address] MCV (RBC) [Entitic vol] 95.2 fL High 80-[address] [facility] Comment on above: Performed By: #### L 100.0100 ####[facility] [address] [place], [address] Monocytes/100 WBC (Bld) 6.7 % Normal 0-10 [facility] Comment on above: Performed By: #### L 100.0100 ####[facility] [address] [place], [address] Neutrophils/100 WBC (Bld) 78.7 % High 47-70 [facility] Comment on above: Performed By: #### L 100.0100 ####[facility] [address] [place], [address] Nucleated RBC (Bld) [#/Vol] 0 10*3/uL Normal 0-5 [facility] Comment on above: Performed By: #### L 100.0100 ####[facility] [address] [place], [address] Platelet mean volume (Bld) [Entitic vol] 11.0 fL Normal 6.2-12.0 [facility] Comment on above: Performed By: #### L 100.0100 ####[facility] [address] [place], [address] Platelets (Bld) [#/Vol] 198 10*3/uL Normal 150-450 [facility] Comment on above: Performed By: #### L 100.0100 ####[facility] [address] [place], [address] RBC (Bld) [#/Vol] 4.40 10*6/uL Low 4.6-6.2 [facility] Comment on above: Performed By: #### L 100.0100 ####[facility] [address] [place], [address] RDW SD 48.5 fl High 35.1-43.9 [facility] Comment on above: Performed By: #### L 100.0100 ####[facility] [address] [place], [address] WBC (Bld) [#/Vol] 9.7 10*3/uL Normal 4.4-11.0 [facility] Comment on above: Performed By: #### L 100.0100 ####[facility] [address] [place], [address] Magnesiumon 10-31-2023 Magnesium [Mass/Vol] 2.3 mg/dL Normal 1.6-2.6 [facility] Comment on above: Performed By: #### L 501.2300, L500.2500, L501.5200 ####[facility] [address] [place], [address] Phosphoruson 10-31-2023 Phosphate [Mass/Vol] 3.2 mg/dL Normal 2.5-4.9 [facility] Comment on above: Performed By: #### L 501.2300, L500.2500, L501.5200 ####[facility] [address] [place], [address] CBC W/Diff, Automatedon 10-19 Absolute Lymph 1.07 X10 3/uL Normal 0.83-4.51 [facility] Comment on above: Performed By: #### L 501.9520, L500.4050, L501.2300, L501.5200, L100.0100 ####[facility] [address] [place], [address] Absolute Neut 6.3 X10 3/uL Normal 2.0-7.7 [facility] Comment on above: Performed By: #### L 501.9520, L500.4050, L501.2300, L501.5200, L100.0100 ####[facility] [address] [place], [address] Basophils/100 WBC (Bld) 0.1 % Normal 0-[address] [facility] Comment on above: Performed By: #### L 501.9520, L500.4050, L501.2300, L501.5200, L100.0100 ####[facility] [address] [place], [address] Eosinophils/100 WBC (Bld) 0.8 % Normal 0-5 [facility] Comment on above: Performed By: #### L 501.9520, L500.4050, L501.2300, L501.5200, L100.0100 ####[facility] [address] [place], [address] Erythrocyte distribution width (RBC) [Ratio] 13.8 % Normal 11.6-14.6 [facility] Comment on above: Performed By: #### L 501.9520, L500.4050, L501.2300, L501.5200, L100.0100 ####[facility] [address] [place], [address] Hematocrit (Bld) [Volume fraction] 40.8 % Normal 40-54 [facility] Comment on above: Performed By: #### L 501.9520, L500.4050, L501.2300, L501.5200, L100.0100 ####[facility] [address] [place], [address] Hemoglobin (Bld) [Mass/Vol] 13.2 g/dL Normal 13.0-16.5 [facility] Comment on above: Performed By: #### L 501.9520, L500.4050, L501.2300, L501.5200, L100.0100 ####[facility] [address] [place], [address] IG% 0.900 Normal 0.0-0.9 [facility] Comment on above: Result Comment: IG% - Immature Granulocytes (promyelocytes, myelocytes andmetamyelocytes) > 1% indicates that a LEFT SHIFT is Present. Performed By: #### L 501.9520, L500.4050, L501.2300, L501.5200, L100.0100 ####[facility] [address] [place], [address] Lymphocytes/100 WBC (Bld) 13.5 % Low 19-41 [facility] Comment on above: Performed By: #### L 501.9520, L500.4050, L501.2300, L501.5200, L100.0100 ####[facility] [address] [place], [address] MCH (RBC) [Entitic mass] 30.6 pg Normal 27.0-32.0 [facility] Comment on above: Performed By: #### L 501.9520, L500.4050, L501.2300, L501.5200, L100.0100 ####[facility] [address] [place], [address] MCHC (RBC) [Mass/Vol] 32.4 g/dL Normal 32-36 [facility] Comment on above: Performed By: #### L 501.9520, L500.4050, L501.2300, L501.5200, L100.0100 ####[facility] [address] [place], [address] MCV (RBC) [Entitic vol] 94.4 fL High 80-[address] [facility] Comment on above: Performed By: #### L 501.9520, L500.4050, L501.2300, L501.5200, L100.0100 ####[facility] [address] [place], [address] Monocytes/100 WBC (Bld) 5.9 % Normal 0-10 [facility] Comment on above: Performed By: #### L 501.9520, L500.4050, L501.2300, L501.5200, L100.0100 ####[facility] [address] [place], [address] Neutrophils/100 WBC (Bld) 78.8 % High 47-70 [facility] Comment on above: Performed By: #### L 501.9520, L500.4050, L501.2300, L501.5200, L100.0100 ####[facility] [address] [place], [address] Nucleated RBC (Bld) [#/Vol] 0 10*3/uL Normal 0-5 [facility] Comment on above: Performed By: #### L 501.9520, L500.4050, L501.2300, L501.5200, L100.0100 ####[facility] [address] [place], [address] Platelet mean volume (Bld) [Entitic vol] 10.8 fL Normal 6.2-12.0 [facility] Comment on above: Performed By: #### L 501.9520, L500.4050, L501.2300, L501.5200, L100.0100 ####[facility] [address] [place], [address] Platelets (Bld) [#/Vol] 210 10*3/uL Normal 150-450 [facility] Comment on above: Performed By: #### L 501.9520, L500.4050, L501.2300, L501.5200, L100.0100 ####[facility] [address] [place], [address] RBC (Bld) [#/Vol] 4.32 10*6/uL Low 4.6-6.2 [facility] Comment on above: Performed By: #### L 501.9520, L500.4050, L501.2300, L501.5200, L100.0100 ####[facility] [address] [place], [address] RDW SD 47.9 fl High 35.1-43.9 [facility] Comment on above: Performed By: #### L 501.9520, L500.4050, L501.2300, L501.5200, L100.0100 ####[facility] [address] [place], [address] WBC (Bld) [#/Vol] 8.0 10*3/uL Normal 4.4-11.0 [facility] Comment on above: Performed By: #### L 501.9520, L500.4050, L501.2300, L501.5200, L100.0100 ####[facility] [address] [place], [address] Comprehensive Metabolic Prof oron 10-30-2023 Albumin [Mass/Vol] 2.8 g/dL Low 3.2-5.0 [facility] Comment on above: Performed By: #### L 501.9520, L500.4050, L501.2300, L501.5200, L100.0100 ####[facility] [address] [place], [address] Albumin/Globulin [Mass ratio] 1.0 {ratio} Normal 0.9-2.4 [facility] Comment on above: Performed By: #### L 501.9520, L500.4050, L501.2300, L501.5200, L100.0100 ####[facility] [address] [place], [address] ALK P 58 U/L Normal 45-117 [facility] Comment on above: Performed By: #### L 501.9520, L500.4050, L501.2300, L501.5200, L100.0100 ####[facility] [address] [place], [address] ALT [Catalytic activity/Vol] 12 U/L Low 16-61 [facility] Comment on above: Performed By: #### L 501.9520, L500.4050, L501.2300, L501.5200, L100.0100 ####[facility] [address] [place], [address] AST [Catalytic activity/Vol] 11 U/L Low 15-37 [facility] Comment on above: Performed By: #### L 501.9520, L500.4050, L501.2300, L501.5200, L100.0100 ####[facility] [address] [place], [address] Bilirubin [Mass/Vol] 1.00 mg/dL Normal 0.20-1.00 [facility] Comment on above: Result Comment: For patients on eltrombopag therapy, use of Dimension [place] TBIL is not recommended. Performed By: #### L 501.9520, L500.4050, L501.2300, L501.5200, L100.0100 ####[facility] [address] [place], [address] BUN/CRE 25.1 RATIO High 10-20 [facility] Comment on above: Performed By: #### L 501.9520, L500.4050, L501.2300, L501.5200, L100.0100 ####[facility] [address] [place], [address] CA,Total 8.3 mg/dL Low 8.5-10.1 [facility] Comment on above: Performed By: #### L 501.9520, L500.4050, L501.2300, L501.5200, L100.0100 ####[facility] [address] [place], [address] Chloride [Moles/Vol] 106 mmol/L Normal 98-107 [facility] Comment on above: Performed By: #### L 501.9520, L500.4050, L501.2300, L501.5200, L100.0100 ####[facility] [address] [place], [address] CO2 [Moles/Vol] 26.0 mmol/L Normal 21.0-32.0 [facility] Comment on above: Performed By: #### L 501.9520, L500.4050, L501.2300, L501.5200, L100.0100 ####[facility] [address] [place], [address] Creatinine [Mass/Vol] 0.84 mg/dL Normal 0.70-1.30 [facility] Comment on above: Result Comment: The validity of the calculated GFR GFRAA in patients over70 years has not been determined. Clinical correlation isessential. Performed By: #### L 501.9520, L500.4050, L501.2300, L501.5200, L100.0100 ####[facility] [address] [place], [address] ECRCL 87.67 ml/min Normal [facility] Comment on above: Performed By: #### L 501.9520, L500.4050, L501.2300, L501.5200, L100.0100 ####[facility] [address] [place], [address] EST GFR - AA 118 mL/min Normal >60 [facility] Comment on above: Result Comment: Afri can English GFR Calc Performed By: #### L 501.9520, L500.4050, L501.2300, L501.5200, L100.0100 ####[facility] [address] [place], [address] GAP 5 Normal 5-15 [facility] Comment on above: Performed By: #### L 501.9520, L500.4050, L501.2300, L501.5200, L100.0100 ####[facility] [address] [place], [address] GFR/1.73 sq M.predicted among non-blacks MDRD (S/P/Bld) [Vol rate/Area] 98 mL/min/{1.73_m2} Normal >60 [facility] Comment on above: Result Comment: Non- GFR Calc Performed By: #### L 501.9520, L500.4050, L501.2300, L501.5200, L100.0100 ####[facility] [address] [place], [address] Globulin (S) [Mass/Vol] 2.9 g/dL Normal 2.2-4.[address] [facility] Comment on above: Performed By: #### L 501.9520, L500.4050, L501.2300, L501.5200, L100.0100 ####[facility] [address] [place], [address] Glucose [Mass/Vol] 106 mg/dL Normal 74-106 [facility] Comment on above: Result Comment: Fast ing Glucose result from 100 to 125 mg/dLsuggests IMPAIRED HOMEOSTASIS per A.D.A. criteria. Performed By: #### L 501.9520, L500.4050, L501.2300, L501.5200, L100.0100 ####[facility] [address] [place], [address] Potassium [Moles/Vol] 4.1 mmol/L Normal 3.5-5.1 [facility] Comment on above: Performed By: #### L 501.9520, L500.4050, L501.2300, L501.5200, L100.0100 ####[facility] [address] [place], [address] Sodium [Moles/Vol] 137 mmol/L Normal 136-145 [facility] Comment on above: Performed By: #### L 501.9520, L500.4050, L501.2300, L501.5200, L100.0100 ####[facility] [address] [place], [address] T PROT 5.7 g/dL Low 6.4-8.2 [facility] Comment on above: Performed By: #### L 501.9520, L500.4050, L501.2300, L501.5200, L100.0100 ####[facility] [address] [place], [address] Urea nitrogen [Mass/Vol] 21 mg/dL High 7-18 [facility] Comment on above: Performed By: #### L 501.9520, L500.4050, L501.2300, L501.5200, L100.0100 ####[facility] [address] [place], [address] Magnesiumon 10-30-2023 Magnesium [Mass/Vol] 2.2 mg/dL Normal 1.6-2.6 [facility] Comment on above: Performed By: #### L 501.9520, L500.4050, L501.2300, L501.5200, L100.0100 ####[facility] [address] [place], [address] Phosphoruson 10-30-2023 Phosphate [Mass/Vol] 3.9 mg/dL Normal 2.5-4.9 [facility] Comment on above: Performed By: #### L 501.9520, L500.4050, L501.2300, L501.5200, L100.0100 ####[facility] [address] [place], [address] Thyroid Stim Hormone (TSH)on 10-30-2023 TSH 1.300 uIU/mL Normal 0.358-3.740 [facility] Comment on above: Performed By: #### L 501.9520, L500.4050, L501.2300, L501.5200, L100.0100 ####[facility] [address] [place], [address] Basic Metabolic Profile (BMP )on 10-29-2023 BUN/CRE 26.7 RATIO High 10-20 [facility] Comment on above: Performed By: #### L 500.2500, L100.0100 ####[facility] [address] [place], [address] CA,Total 8.7 mg/dL Normal 8.5-10.1 [facility] Comment on above: Performed By: #### L 500.2500, L100.0100 ####[facility] [address] [place], [address] Chloride [Moles/Vol] 103 mmol/L Normal 98-107 [facility] Comment on above: Performed By: #### L 500.2500, L100.0100 ####[facility] [address] [place], [address] CO2 [Moles/Vol] 31.0 mmol/L Normal 21.0-32.0 [facility] Comment on above: Performed By: #### L 500.2500, L100.0100 ####[facility] [address] [place], [address] Creatinine [Mass/Vol] 1.16 mg/dL Normal 0.70-1.30 [facility] Comment on above: Result Comment: The validity of the calculated GFR GFRAA in patients over70 years has not been determined. Clinical correlation isessential. Performed By: #### L 500.2500, L100.0100 ####[facility] [address] [place], [address] EST GFR - AA 81 mL/min Normal >60 [facility] Comment on above: Result Comment: Afri can English GFR Calc Performed By: #### L 500.2500, L100.0100 ####[facility] [address] [place], [address] GAP 5 Normal 5-15 [facility] Comment on above: Performed By: #### L 500.2500, L100.0100 ####[facility] [address] [place], [address] GFR/1.73 sq M.predicted among non-blacks MDRD (S/P/Bld) [Vol rate/Area] 67 mL/min/{1.73_m2} Normal >60 [facility] Comment on above: Result Comment: Non- GFR Calc Performed By: #### L 500.2500, L100.0100 ####[facility] [address] [place], [address] Glucose [Mass/Vol] 112 mg/dL High 74-106 [facility] Comment on above: Result Comment: Fast ing Glucose result from 100 to 125 mg/dLsuggests IMPAIRED HOMEOSTASIS per A.D.A. criteria. Performed By: #### L 500.2500, L100.0100 ####[facility] [address] [place], [address] Potassium [Moles/Vol] 3.9 mmol/L Normal 3.5-5.1 [facility] Comment on above: Performed By: #### L 500.2500, L100.0100 ####[facility] [address] [place], [address] Sodium [Moles/Vol] 139 mmol/L Normal 136-145 [facility] Comment on above: Performed By: #### L 500.2500, L100.0100 ####[facility] [address] [place], [address] Urea nitrogen [Mass/Vol] 31 mg/dL High 7-18 [facility] [facility] Comment on above: Performed By: #### L 500.2500, L100.0100 ####[facility] [address] [place], [address] CBC W/Diff, Automatedon 09- 0-2023 Absolute Lymph 2.07 X10 3/uL Normal 0.83-4.51 [facility] Comment on above: Performed By: #### L 500.2500, L100.0100 ####[facility] [address] [place], [address] Absolute Neut 6.8 X10 3/uL Normal 2.0-7.7 [facility] Comment on above: Performed By: #### L 500.2500, L100.0100 ####[facility] [address] [place], [address] Basophils/100 WBC (Bld) 0.3 % Normal 0-[address] [facility] Comment on above: Performed By: #### L 500.2500, L100.0100 ####[facility] [address] [place], [address] Eosinophils/100 WBC (Bld) 1.5 % Normal 0-5 [facility] Comment on above: Performed By: #### L 500.2500, L100.0100 ####[facility] [address] [place], [address] Erythrocyte distribution width (RBC) [Ratio] 13.7 % Normal 11.6-14.6 [facility] Comment on above: Performed By: #### L 500.2500, L100.0100 ####[facility] [address] [place], [address] Hematocrit (Bld) [Volume fraction] 43.9 % Normal 40-54 [facility] Comment on above: Performed By: #### L 500.2500, L100.0100 ####[facility] [address] [place], [address] Hemoglobin (Bld) [Mass/Vol] 14.2 g/dL Normal 13.0-16.5 [facility] Comment on above: Performed By: #### L 500.2500, L100.0100 ####[facility] [address] [place], [address] IG% 0.700 Normal 0.0-0.9 [facility] Comment on above: Result Comment: IG% - Immature Granulocytes (promyelocytes, myelocytes andmetamyelocytes) > 1% indicates that a LEFT SHIFT is Present. Performed By: #### L 500.2500, L100.0100 ####[facility] [address] [place], [address] Lymphocytes/100 WBC (Bld) 20.7 % Normal 19-41 [facility] Comment on above: Performed By: #### L 500.2500, L100.0100 ####[facility] [address] [place], [address] MCH (RBC) [Entitic mass] 30.4 pg Normal 27.0-32.0 [facility] Comment on above: Performed By: #### L 500.2500, L100.0100 ####[facility] [address] [place], [address] MCHC (RBC) [Mass/Vol] 32.3 g/dL Normal 32-36 [facility] Comment on above: Performed By: #### L 500.2500, L100.0100 ####[facility] [address] [place], [address] MCV (RBC) [Entitic vol] 94.0 fL Normal 80-94 [facility] Comment on above: Performed By: #### L 500.2500, L100.0100 ####[facility] [address] [place], [address] Monocytes/100 WBC (Bld) 9.0 % Normal 0-10 [facility] Comment on above: Performed By: #### L 500.2500, L100.0100 ####[facility] [address] [place], [address] Neutrophils/100 WBC (Bld) 67.8 % Normal 47-70 [facility] Comment on above: Performed By: #### L 500.2500, L100.0100 ####[facility] [address] [place], [address] Nucleated RBC (Bld) [#/Vol] 0 10*3/uL Normal 0-5 [facility] Comment on above: Performed By: #### L 500.2500, L100.0100 ####[facility] [address] [place], [address] Platelet mean volume (Bld) [Entitic vol] 11.2 fL Normal 6.2-12.0 [facility] Comment on above: Performed By: #### L 500.2500, L100.0100 ####[facility] [address] [place], [address] Platelets (Bld) [#/Vol] 211 10*3/uL Normal 150-450 [facility] Comment on above: Performed By: #### L 500.2500, L100.0100 ####[facility] [address] [place], [address] RBC (Bld) [#/Vol] 4.67 10*6/uL Normal 4.6-6.2 [facility] Comment on above: Performed By: #### L 500.2500, L100.0100 ####[facility] [address] [place], [address] RDW SD 47.4 fl High 35.1-43.9 [facility] Comment on above: Performed By: #### L 500.2500, L100.0100 ####[facility] [address] [place], [address] WBC (Bld) [#/Vol] 10.0 10*3/uL Normal 4.4-11.0 [facility] Comment on above: Performed By: #### L 500.2500, L100.0100 ####[facility] [address] [place], [address] CORTISOL SERUMon 10-29-2023 CORTISOL 5.00 ug/dL Normal 3.44-22.45 [facility] Comment on above: Result Comment: Adul t (AM) 5.27 - 22.45 ug/dL Adult (PM) 3.44 - 16.76 ug/dL Performed By: #### L 509.6000 ####[facility] [address] [place], [address] Chest PA and Lateralon 10-28 Chest PA and Lateral Normal [facility] Emergency Department Summary on 10-29-2023 Emergency Department Summary Normal [facility] H AND P Exam - Hospitaliston 10-29-2023 H&P Exam - Hospitalist Normal [facility] Lactic Acidon 10-29-2023 Lactate [Moles/Vol] 1.8 mmol/L Normal 0.4-1.9 [facility] Comment on above: Order Comment: Y Performed By: #### L 503.6005 ####[facility] [address] [place], [address] Urine Cultureon 10-29-2023 [facility] Culture exhibits no growth. Normal [facility] Comment on above: Performed By: #### M 100.2200, L400.0001 ####[facility] [address] [place], [address] Emergency Department Summary on 10-28-2023 Emergency Department Summary Normal [facility] Kidney and Bladderon 024 Kidney and Bladder Normal [facility] Urinalysis, Completeon 10-27 BILIRUBIN URINE Negative Normal Negative [facility] Comment on above: Order Comment: COLLE CTOR TO SPECIFY Performed By: #### M 100.2200, L400.0001 ####[facility] [address] [place], [address] Clarity (U) Clear Normal Clear [facility] Comment on above: Order Comment: COLLE CTOR TO SPECIFY Performed By: #### M 100.2200, L400.0001 ####[facility] [address] [place], [address] Color (U) Yellow Normal Yellow [facility] Comment on above: Order Comment: COLLE CTOR TO SPECIFY Performed By: #### M 100.2200, L400.0001 ####[facility] [address] [place], [address] GLUCOSE, UR Normal Normal Normal [facility] Comment on above: Order Comment: COLLE CTOR TO SPECIFY Performed By: #### M 100.2200, L400.0001 ####[facility] [address] [place], [address] KETONE UR Negative Normal Negative [facility] Comment on above: Order Comment: COLLE CTOR TO SPECIFY Performed By: #### M 100.2200, L400.0001 ####[facility] [address] [place], [address] LEUK ESTERASE Negative Normal Negative [facility] Comment on above: Order Comment: COLLE CTOR TO SPECIFY Performed By: #### M 100.2200, L400.0001 ####[facility] [address] [place], [address] Nitrite Ql (U) Negative Normal Negative [facility] Comment on above: Order Comment: COLLE CTOR TO SPECIFY Performed By: #### M 100.2200, L400.0001 ####[facility] [address] [place], [address] OCCULT BLOOD-UR Negative Normal Negative [facility] Comment on above: Order Comment: [facility] CTOR TO SPECIFY Performed By: #### M 100.2200, L400.0001 ####[facility] [address] [place], [address] pH UR 6.0 Normal 5.0 - 8.0 [facility] Comment on above: Order Comment: COLLE CTOR TO SPECIFY Performed By: #### M 100.2200, L400.0001 ####[facility] [address] [place], [address] PROT DIPSTX Negative Normal Negative [facility] Comment on above: Order Comment: COLLE CTOR TO SPECIFY Performed By: #### M 100.2200, L400.0001 ####[facility] [address] [place], [address] SP.GR. DIPSTX 1.015 Normal 1.002-1.030 [facility] Comment on above: Order Comment: COLLE CTOR TO SPECIFY Performed By: #### M 100.2200, L400.0001 ####[facility] [address] [place], [address] UROBILI Normal Normal Normal [facility] Comment on above: Order Comment: XAVIER CTOR TO SPECIFY Performed By: #### M 100.2200, L400.0001 ####[facility] [address] [place], [address] BACTERIA 0 SEEN Normal None Seen [facility] Comment on above: Order Comment: XAVIER CTOR TO SPECIFY Performed By: #### M 100.2200, L400.0001 ####[facility] [address] [place], [address] EPI,SQUAMOUS 0 SEEN Normal 0-5 [facility] Comment on above: Order Comment: XAVIER CTOR TO SPECIFY Performed By: #### M 100.2200, L400.0001 ####[facility] [address] [place], [address] Mucus Ql (Urine sed) 0 SEEN Normal [facility] Comment on above: Order Comment: XAVIER CTOR TO SPECIFY Performed By: #### M 100.2200, L400.0001 ####[facility] [address] [place], [address] RBC 0 SEEN Normal 0-[address] [place] [address] Comment on above: Order Comment: XAVIER CTOR TO SPECIFY Performed By: #### M 100.2200, L400.0001 ####[facility] [address] [place], [address] WBC 0 SEEN Normal 0-[address] [place] [address] Comment on above: Order Comment: XAVIER CTOR TO SPECIFY Performed By: #### M 100.2200, L400.0001 ####[facility] [address] [place], [address] Urine Cultureon 10-28-2023 U[facility] Susceptibility not normally performed on this organism. Scha[place] odontolyticus Pavilion Count <1000 Corynebacterium jeikeium Pavilion Count <1000 Corynebacterium species Pavilion Count <1000 Normal [facility] Comment on above: Performed By: #### M 100.2200 ####[facility] [address] [place], [address] Culture, Blood (WB)on 2023 CUB No growth in 5 days. Normal [facility] Comment on above: Performed By: #### M 200.1000 ####[facility] [address] [place], [address] Basic Metabolic Profile (BMP )on 10-23-2023 BUN/CRE 24.5 RATIO High 10-20 [facility] Comment on above: Performed By: #### L 100.0500, L500.2500 ####[facility] [address] [place], [address] CA,Total 9.0 mg/dL Normal 8.5-10.1 [facility] Comment on above: Performed By: #### L 100.0500, L500.2500 ####[facility] [address] [place], [address] Chloride [Moles/Vol] 103 mmol/L Normal 98-107 [facility] Comment on above: Performed By: #### L 100.0500, L500.2500 ####[facility] [address] [place], [address] CO2 [Moles/Vol] 29.0 mmol/L Normal 21.0-32.0 [facility] Comment on above: Performed By: #### L 100.0500, L500.2500 ####[facility] [address] [place], [address] Creatinine [Mass/Vol] 0.98 mg/dL Normal 0.70-1.30 [facility] Comment on above: Result Comment: The validity of the calculated GFR GFRAA in patients over70 years has not been determined. Clinical correlation isessential. Performed By: #### L 100.0500, L500.2500 ####[facility] [address] [place], [address] ECRCL 82.08 ml/min Normal [facility] Comment on above: Performed By: #### L 100.0500, L500.2500 ####[facility] [address] [place], [address] EST GFR - AA 99 mL/min Normal >60 [facility] Comment on above: Result Comment: Afri can English GFR Calc Performed By: #### L 100.0500, L500.2500 ####[facility] [address] [place], [address] GAP 6 Normal 5-15 [facility] Comment on above: Performed By: #### L 100.0500, L500.2500 ####[facility] [address] [place], [address] GFR/1.73 sq M.predicted among non-blacks MDRD (S/P/Bld) [Vol rate/Area] 81 mL/min/{1.73_m2} Normal >60 [facility] Comment on above: Result Comment: Non- GFR Calc Performed By: #### L 100.0500, L500.2500 ####[facility] [address] [place], [address] Glucose [Mass/Vol] 106 mg/dL Normal 74-106 [facility] Comment on above: Result Comment: Fast ing Glucose result from 100 to 125 mg/dLsuggests IMPAIRED HOMEOSTASIS per A.D.A. criteria. Performed By: #### L 100.0500, L500.2500 ####[facility] [address] [place], [address] Potassium [Moles/Vol] 3.7 mmol/L Normal 3.5-5.1 [facility] Comment on above: Performed By: #### L 100.0500, L500.2500 ####[facility] [address] [place], [address] Sodium [Moles/Vol] 138 mmol/L Normal 136-145 [facility] Comment on above: Performed By: #### L 100.0500, L500.2500 ####[facility] [address] [place], [address] Urea nitrogen [Mass/Vol] 24 mg/dL High 7-18 [facility] Comment on above: Performed By: #### L 100.0500, L500.2500 ####[facility] [address] [place], [address] CBC-Complete Blood Cnt No Di ffon 10-23-2023 Erythrocyte distribution width (RBC) [Ratio] 14.1 % Normal 11.6-14.6 [facility] Comment on above: Performed By: #### L 100.0500, L500.2500 ####[facility] [address] [place], [address] Hematocrit (Bld) [Volume fraction] 41.5 % Normal 40-54 [facility] Comment on above: Performed By: #### L 100.0500, L500.2500 ####[facility] [address] [place], [address] Hemoglobin (Bld) [Mass/Vol] 13.3 g/dL Normal 13.0-16.5 [facility] Comment on above: Performed By: #### L 100.0500, L500.2500 ####[facility] [address] [place], [address] MCH (RBC) [Entitic mass] 30.6 pg Normal 27.0-32.0 [facility] Comment on above: Performed By: #### L 100.0500, L500.2500 ####[facility] [address] [place], [address] MCHC (RBC) [Mass/Vol] 32.0 g/dL Normal 32-36 [facility] Comment on above: Performed By: #### L 100.0500, L500.2500 ####[facility] [address] [place], [address] MCV (RBC) [Entitic vol] 95.4 fL High 80-[address] [facility] Comment on above: Performed By: #### L 100.0500, L500.2500 ####[facility] [address] [place], [address] Platelet mean volume (Bld) [Entitic vol] 11.3 fL Normal 6.2-12.0 [facility] Comment on above: Performed By: #### L 100.0500, L500.2500 ####[facility] [address] [place], [address] Platelets (Bld) [#/Vol] 184 10*3/uL Normal 150-450 [facility] Comment on above: Performed By: #### L 100.0500, L500.2500 ####[facility] [address] [place], [address] RBC (Bld) [#/Vol] 4.35 10*6/uL Low 4.6-6.2 [facility] Comment on above: Performed By: #### L 100.0500, L500.2500 ####[facility] [address] [place], [address] RDW SD 50.4 fl High 35.1-43.9 [facility] Comment on above: Performed By: #### L 100.0500, L500.2500 ####[facility] [address] [place], [address] WBC (Bld) [#/Vol] 7.7 10*3/uL Normal 4.4-11.0 [facility] Comment on above: Performed By: #### L 100.0500, L500.2500 ####[facility] [address] [place], [address] Abdomen/Pelvis W IV Cont ONL Yon 10-22-2023 Abdomen/Pelvis W IV Cont ONLY Normal [facility] Basic Metabolic Profile (BMP )on 10-22-2023 BUN/CRE 21.7 RATIO High 10-20 [facility] Comment on above: Performed By: #### L 501.9520, L500.2500, L100.0100 ####[facility] [address] [place], [address] CA,Total 8.8 mg/dL Normal 8.5-10.1 [facility] Comment on above: Performed By: #### L 501.9520, L500.2500, L100.0100 ####[facility] [address] [place], [address] Chloride [Moles/Vol] 101 mmol/L Normal 98-107 [facility] Comment on above: Performed By: #### L 501.9520, L500.2500, L100.0100 ####[facility] [address] [place], [address] CO2 [Moles/Vol] 29.0 mmol/L Normal 21.0-32.0 [facility] Comment on above: Performed By: #### L 501.9520, L500.2500, L100.0100 ####[facility] [address] [place], [address] Creatinine [Mass/Vol] 1.15 mg/dL Normal 0.70-1.30 [facility] Comment on above: Result Comment: The validity of the calculated GFR GFRAA in patients over70 years has not been determined. Clinical correlation isessential. Performed By: #### L 501.9520, L500.2500, L100.0100 ####[facility] [address] [place], [address] ECRCL 69.95 ml/min Normal [facility] Comment on above: Performed By: #### L 501.9520, L500.2500, L100.0100 ####[facility] [address] [place], [address] EST GFR - AA 82 mL/min Normal >60 [facility] Comment on above: Result Comment: Afri can English GFR Calc Performed By: #### L 501.9520, L500.2500, L100.0100 ####[facility] [address] [place], [address] GAP 5 Normal 5-15 [facility] Comment on above: Performed By: #### L 501.9520, L500.2500, L100.0100 ####[facility] [address] [place], [address] GFR/1.73 sq M.predicted among non-blacks MDRD (S/P/Bld) [Vol rate/Area] 68 mL/min/{1.73_m2} Normal >60 [facility] Comment on above: Result Comment: Non- GFR Calc Performed By: #### L 501.9520, L500.2500, L100.0100 ####[facility] [address] [place], [address] Glucose [Mass/Vol] 120 mg/dL High 74-106 [facility] Comment on above: Result Comment: Fast ing Glucose result from 100 to 125 mg/dLsuggests IMPAIRED HOMEOSTASIS per A.D.A. criteria. Performed By: #### L 501.9520, L500.2500, L100.0100 ####[facility] [address] [place], [address] Potassium [Moles/Vol] 4.3 mmol/L Normal 3.5-5.1 [facility] Comment on above: Performed By: #### L 501.9520, L500.2500, L100.0100 ####[facility] [address] [place], [address] Sodium [Moles/Vol] 135 mmol/L Low 136-145 [facility] Comment on above: Performed By: #### L 501.9520, L500.2500, L100.0100 ####[facility] [address] [place], [address] Urea nitrogen [Mass/Vol] 25 mg/dL High 7-18 [facility] Comment on above: Performed By: #### L 501.9520, L500.2500, L100.0100 ####[facility] [address] [place], [address] CBC W/Diff, Automatedon 090 -2023 Absolute Lymph 0.85 X10 3/uL Normal 0.83-4.51 [facility] Comment on above: Performed By: #### L 501.9520, L500.2500, L100.0100 ####[facility] [address] [place], [address] Absolute Neut 5.9 X10 3/uL Normal 2.0-7.7 [facility] Comment on above: Performed By: #### L 501.9520, L500.2500, L100.0100 ####[facility] [address] [place], [address] Basophils/100 WBC (Bld) 0.1 % Normal 0-[address] [facility] Comment on above: Performed By: #### L 501.9520, L500.2500, L100.0100 ####[facility] [address] [place], [address] Eosinophils/100 WBC (Bld) 0.0 % Normal 0-5 [facility] Comment on above: Performed By: #### L 501.9520, L500.2500, L100.0100 ####[facility] [address] [place], [address] Erythrocyte distribution width (RBC) [Ratio] 14.2 % Normal 11.6-14.6 [facility] Comment on above: Performed By: #### L 501.9520, L500.2500, L100.0100 ####[facility] [address] [place], [address] Hematocrit (Bld) [Volume fraction] 41.8 % Normal 40-54 [facility] Comment on above: Performed By: #### L 501.9520, L500.2500, L100.0100 ####[facility] [address] [place], [address] Hemoglobin (Bld) [Mass/Vol] 13.5 g/dL Normal 13.0-16.5 [facility] Comment on above: Performed By: #### L 501.9520, L500.2500, L100.0100 ####[facility] [address] [place], [address] IG% 0.300 Normal 0.0-0.9 [facility] Comment on above: Result Comment: IG% - Immature Granulocytes (promyelocytes, myelocytes andmetamyelocytes) > 1% indicates that a LEFT SHIFT is Present. Performed By: #### L 501.9520, L500.2500, L100.0100 ####[facility] [address] [place], [address] Lymphocytes/100 WBC (Bld) 12.2 % Low 19-41 [facility] Comment on above: Performed By: #### L 501.9520, L500.2500, L100.0100 ####[facility] [address] [place], [address] MCH (RBC) [Entitic mass] 30.8 pg Normal 27.0-32.0 [facility] Comment on above: Performed By: #### L 501.9520, L500.2500, L100.0100 ####[facility] [address] [place], [address] MCHC (RBC) [Mass/Vol] 32.3 g/dL Normal 32-36 [facility] Comment on above: Performed By: #### L 501.9520, L500.2500, L100.0100 ####[facility] [address] [place], [address] MCV (RBC) [Entitic vol] 95.2 fL High 80-[address] [facility] Comment on above: Performed By: #### L 501.9520, L500.2500, L100.0100 ####[facility] [address] [place], [address] Monocytes/100 WBC (Bld) 2.7 % Normal 0-10 [facility] Comment on above: Performed By: #### L 501.9520, L500.2500, L100.0100 ####[facility] [address] [place], [address] Neutrophils/100 WBC (Bld) 84.7 % High 47-70 [facility] Comment on above: Performed By: #### L 501.9520, L500.2500, L100.0100 ####[facility] [address] [place], [address] Nucleated RBC (Bld) [#/Vol] 0 10*3/uL Normal 0-5 [facility] Comment on above: Performed By: #### L 501.9520, L500.2500, L100.0100 ####[facility] [address] [place], [address] Platelet mean volume (Bld) [Entitic vol] 10.8 fL Normal 6.2-12.0 [facility] Comment on above: Performed By: #### L 501.9520, L500.2500, L100.0100 ####[facility] [address] [place], [address] Platelets (Bld) [#/Vol] 185 10*3/uL Normal 150-450 [facility] Comment on above: Performed By: #### L 501.9520, L500.2500, L100.0100 ####[facility] [address] [place], [address] RBC (Bld) [#/Vol] 4.39 10*6/uL Low 4.6-6.2 [facility] Comment on above: Performed By: #### L 501.9520, L500.2500, L100.0100 ####[facility] [address] [place], [address] RDW SD 50.3 fl High 35.1-43.9 [facility] [facility] Comment on above: Performed By: #### L 501.9520, L500.2500, L100.0100 ####[facility] [address] [place], [address] WBC (Bld) [#/Vol] 7.0 10*3/uL Normal 4.4-11.0 [facility] Comment on above: Performed By: #### L 501.9520, L500.2500, L100.0100 ####[facility] [address] [place], [address] Chest PA and Lateralon 10-21 Chest PA and Lateral Normal [facility] Emergency Department Summary on 10-22-2023 Emergency Department Summary Normal [facility] M100.678on 10-22-2023 M100.678 Normal [facility] Comment on above: Performed By: #### M 100.678, L400.0001 ####[facility] [address] [place], [address] T4 Free Directon 10-22-2023 T4 FREE DIRECT 1.31 ng/dL Normal 0.76-1.46 [facility] Comment on above: Performed By: #### L 506.0400 ####[facility] [address] [place], [address] Thyroid Stim Hormone (TSH)on 10-22-2023 TSH 0.168 uIU/mL Low 0.358-3.740 [facility] Comment on above: Performed By: #### L 501.9520, L500.2500, L100.0100 ####[facility] [address] [place], [address] Urinalysis, Completeon 10-21 BACTERIA 1+ /hpf Normal None Seen [facility] Comment on above: Order Comment: COLOR OF URINE MAY AFFECT DIPSTICK RESULTS.BLADDER TAP Performed By: #### M 100.678, L400.0001 ####[facility] [address] [place], [address] CAST,FINE GRAN 0-5 SEEN Normal 0-5 [facility] Comment on above: Order Comment: COLOR OF URINE MAY AFFECT DIPSTICK RESULTS.BLADDER TAP Performed By: #### M 100.678, L400.0001 ####[facility] [address] [place], [address] CAST,HYALINE 5-10 SEEN Normal 0-5 [facility] Comment on above: Order Comment: COLOR OF URINE MAY AFFECT DIPSTICK RESULTS.BLADDER TAP Performed By: #### M 100.678, L400.0001 ####[facility] [address] [place], [address] EPI,SQUAMOUS 0-5 SEEN Normal 0-5 [facility] Comment on above: Order Comment: COLOR OF URINE MAY AFFECT DIPSTICK RESULTS.BLADDER TAP Performed By: #### M 100.678, L400.0001 ####[facility] [address] [place], [address] Mucus Ql (Urine sed) 1+ /hpf Normal [facility] Comment on above: Order Comment: COLOR OF URINE MAY AFFECT DIPSTICK RESULTS.BLADDER TAP Performed By: #### M 100.678, L400.0001 ####[facility] [address] [place], [address] RBC > 100 SEEN Normal 0-5 [facility] Comment on above: Order Comment: COLOR OF URINE MAY AFFECT DIPSTICK RESULTS.BLADDER TAP Performed By: #### M 100.678, L400.0001 ####[facility] [address] [place], [address] WBC 10-25 SEEN Normal 0-5 [facility] Comment on above: Order Comment: COLOR OF URINE MAY AFFECT DIPSTICK RESULTS.BLADDER TAP Performed By: #### M 100.678, L400.0001 ####[facility] [address] [place], [address] BNP,B-Type NATRIURETIC PEPTI Daniel 10-21-2023 Natriuretic peptide B (Bld) [Mass/Vol] 75.5 pg/mL Normal 0-100 [facility] Comment on above: Performed By: #### L 501.5200, L100.0100, L501.9520, L503.6620, L503.6005, L500.2500, L500.3400 ####[facility] [address] [place], [address] Basic Metabolic Profile (BMP )on 10-21-2023 BUN/CRE 21.9 RATIO High 10-20 [facility] Comment on above: Performed By: #### L 501.5200, L100.0100, L501.9520, L503.6620, L503.6005, L500.2500, L500.3400 ####[facility] [address] [place], [address] CA,Total 8.8 mg/dL Normal 8.5-10.1 [facility] Comment on above: Performed By: #### L 501.5200, L100.0100, L501.9520, L503.6620, L503.6005, L500.2500, L500.3400 ####[facility] [address] [place], [address] Chloride [Moles/Vol] 97 mmol/L Low 98-107 [facility] Comment on above: Performed By: #### L 501.5200, L100.0100, L501.9520, L503.6620, L503.6005, L500.2500, L500.3400 ####[facility] [address] [place], [address] CO2 [Moles/Vol] 27.0 mmol/L Normal 21.0-32.0 [facility] Comment on above: Performed By: #### L 501.5200, L100.0100, L501.9520, L503.6620, L503.6005, L500.2500, L500.3400 ####[facility] [address] [place], [address] Creatinine [Mass/Vol] 1.60 mg/dL High 0.70-1.30 [facility] Comment on above: Result Comment: The validity of the calculated GFR GFRAA in patients over70 years has not been determined. Clinical correlation isessential. Performed By: #### L 501.5200, L100.0100, L501.9520, L503.6620, L503.6005, L500.2500, L500.3400 ####[facility] [address] [place], [address] EST GFR - AA 56 mL/min Low >60 [facility] Comment on above: Result Comment: Afri can English GFR Calc Performed By: #### L 501.5200, L100.0100, L501.9520, L503.6620, L503.6005, L500.2500, L500.3400 ####[facility] [address] [place], [address] GAP 9 Normal 5-15 [facility] Comment on above: Performed By: #### L 501.5200, L100.0100, L501.9520, L503.6620, L503.6005, L500.2500, L500.3400 ####[facility] [address] [place], [address] GFR/1.73 sq M.predicted among non-blacks MDRD (S/P/Bld) [Vol rate/Area] 46 mL/min/{1.73_m2} Low >60 [facility] Comment on above: Result Comment: Non- GFR Calc Performed By: #### L 501.5200, L100.0100, L501.9520, L503.6620, L503.6005, L500.2500, L500.3400 ####[facility] [address] [place], [address] Glucose [Mass/Vol] 114 mg/dL High 74-106 [facility] Comment on above: Result Comment: Fast ing Glucose result from 100 to 125 mg/dLsuggests IMPAIRED HOMEOSTASIS per A.D.A. criteria. Performed By: #### L 501.5200, L100.0100, L501.9520, L503.6620, L503.6005, L500.2500, L500.3400 ####[facility] [address] [place], [address] Potassium [Moles/Vol] 3.5 mmol/L Normal 3.5-5.1 [facility] Comment on above: Performed By: #### L 501.5200, L100.0100, L501.9520, L503.6620, L503.6005, L500.2500, L500.3400 ####[facility] [address] [place], [address] Sodium [Moles/Vol] 133 mmol/L Low 136-145 [facility] Comment on above: Performed By: #### L 501.5200, L100.0100, L501.9520, L503.6620, L503.6005, L500.2500, L500.3400 ####[facility] [address] [place], [address] Urea nitrogen [Mass/Vol] 35 mg/dL High 7-18 [facility] Comment on above: Performed By: #### L 501.5200, L100.0100, L501.9520, L503.6620, L503.6005, L500.2500, L500.3400 ####[facility] [address] [place], [address] CBC W/Diff, Automatedon 09-0 2-202 Absolute Lymph 0.81 X10 3/uL Low 0.83-4.51 [facility] Comment on above: Performed By: #### L 501.5200, L100.0100, L501.9520, L503.6620, L503.6005, L500.2500, L500.3400 ####[facility] [address] [place], [address] Absolute Neut 8.4 X10 3/uL High 2.0-7.7 [facility] Comment on above: Performed By: #### L 501.5200, L100.0100, L501.9520, L503.6620, L503.6005, L500.2500, L500.3400 ####[facility] [address] [place], [address] Basophils/100 WBC (Bld) 0.2 % Normal 0-[address] [facility] Comment on above: Performed By: #### L 501.5200, L100.0100, L501.9520, L503.6620, L503.6005, L500.2500, L500.3400 ####[facility] [address] [place], [address] Eosinophils/100 WBC (Bld) 0.0 % Normal 0-5 [facility] Comment on above: Performed By: #### L 501.5200, L100.0100, L501.9520, L503.6620, L503.6005, L500.2500, L500.3400 ####[facility] [address] [place], [address] Erythrocyte distribution width (RBC) [Ratio] 14.0 % Normal 11.6-14.6 [facility] Comment on above: Performed By: #### L 501.5200, L100.0100, L501.9520, L503.6620, L503.6005, L500.2500, L500.3400 ####[facility] [address] [place], [address] Hematocrit (Bld) [Volume fraction] 42.7 % Normal 40-54 [facility] Comment on above: Performed By: #### L 501.5200, L100.0100, L501.9520, L503.6620, L503.6005, L500.2500, L500.3400 ####[facility] [address] [place], [address] Hemoglobin (Bld) [Mass/Vol] 13.8 g/dL Normal 13.0-16.5 [facility] Comment on above: Performed By: #### L 501.5200, L100.0100, L501.9520, L503.6620, L503.6005, L500.2500, L500.3400 ####[facility] [address] [place], [address] IG% 0.400 Normal 0.0-0.9 [facility] Comment on above: Result Comment: IG% - Immature Granulocytes (promyelocytes, myelocytes andmetamyelocytes) > 1% indicates that a LEFT SHIFT is Present. Performed By: #### L 501.5200, L100.0100, L501.9520, L503.6620, L503.6005, L500.2500, L500.3400 ####[facility] [address] [place], [address] Lymphocytes/100 WBC (Bld) 8.1 % Low 19-41 [facility] Comment on above: Performed By: #### L 501.5200, L100.0100, L501.9520, L503.6620, L503.6005, L500.2500, L500.3400 ####[facility] [address] [place], [address] MCH (RBC) [Entitic mass] 30.7 pg Normal 27.0-32.0 [facility] Comment on above: Performed By: #### L 501.5200, L100.0100, L501.9520, L503.6620, L503.6005, L500.2500, L500.3400 ####[facility] [address] [place], [address] MCHC (RBC) [Mass/Vol] 32.3 g/dL Normal 32-36 [facility] Comment on above: Performed By: #### L 501.5200, L100.0100, L501.9520, L503.6620, L503.6005, L500.2500, L500.3400 ####[facility] [address] [place], [address] MCV (RBC) [Entitic vol] 95.1 fL High 80-[address] [facility] Comment on above: Performed By: #### L 501.5200, L100.0100, L501.9520, L503.6620, L503.6005, L500.2500, L500.3400 ####[facility] [address] [place], [address] Monocytes/100 WBC (Bld) 7.2 % Normal 0-[address] [facility] Comment on above: Performed By: #### L 501.5200, L100.0100, L501.9520, L503.6620, L503.6005, L500.2500, L500.3400 ####[facility] [address] [place], [address] Neutrophils/100 WBC (Bld) 84.1 % High 47-70 [facility] Comment on above: Performed By: #### L 501.5200, L100.0100, L501.9520, L503.6620, L503.6005, L500.2500, L500.3400 ####[facility] [address] [place], [address] Nucleated RBC (Bld) [#/Vol] 0 10*3/uL Normal 0-5 [facility] Comment on above: Performed By: #### L 501.5200, L100.0100, L501.9520, L503.6620, L503.6005, L500.2500, L500.3400 ####[facility] [address] [place], [address] Platelet mean volume (Bld) [Entitic vol] 10.7 fL Normal 6.2-12.0 [facility] Comment on above: Performed By: #### L 501.5200, L100.0100, L501.9520, L503.6620, L503.6005, L500.2500, L500.3400 ####[facility] [address] [place], [address] Platelets (Bld) [#/Vol] 216 10*3/uL Normal 150-450 [facility] Comment on above: Performed By: #### L 501.5200, L100.0100, L501.9520, L503.6620, L503.6005, L500.2500, L500.3400 ####[facility] [address] [place], [address] RBC (Bld) [#/Vol] 4.49 10*6/uL Low 4.6-6.2 [facility] Comment on above: Performed By: #### L 501.5200, L100.0100, L501.9520, L503.6620, L503.6005, L500.2500, L500.3400 ####[facility] [address] [place], [address] RDW SD 49.1 fl High 35.1-43.9 [facility] Comment on above: Performed By: #### L 501.5200, L100.0100, L501.9520, L503.6620, L503.6005, L500.2500, L500.3400 ####[facility] [address] [place], [place], [address] WBC (Bld) [#/Vol] 10.0 10*3/uL Normal 4.4-11.0 [facility] Comment on above: Performed By: #### L 501.5200, L100.0100, L501.9520, L503.6620, L503.6005, L500.2500, L500.3400 ####[facility] [address] [place], [place], [address] Lactic Acidon 10-21-2023 Lactate [Moles/Vol] 1.5 mmol/L Normal 0.4-1.9 [facility] Comment on above: Order Comment: Y Performed By: #### L 501.5200, L100.0100, L501.9520, L503.6620, L503.6005, L500.2500, L500.3400 ####[facility] [address] [place], [place], [address] Liver Profileon 10-21-2023 Albumin [Mass/Vol] 3.4 g/dL Normal 3.2-5.0 [facility] Comment on above: Performed By: #### L 501.5200, L100.0100, L501.9520, L503.6620, L503.6005, L500.2500, L500.3400 ####[facility] [address] [place], [address] ALK P 82 U/L Normal 45-117 [facility] Comment on above: Performed By: #### L 501.5200, L100.0100, L501.9520, L503.6620, L503.6005, L500.2500, L500.3400 ####[facility] [address] [place], [address] ALT [Catalytic activity/Vol] 15 U/L Low 16-61 [facility] Comment on above: Performed By: #### L 501.5200, L100.0100, L501.9520, L503.6620, L503.6005, L500.2500, L500.3400 ####[facility] [address] [place], [address] AST [Catalytic activity/Vol] 22 U/L Normal 15-37 [facility] Comment on above: Performed By: #### L 501.5200, L100.0100, L501.9520, L503.6620, L503.6005, L500.2500, L500.3400 ####[facility] [address] [place], [address] Bilirubin [Mass/Vol] 0.60 mg/dL Normal 0.20-1.00 [facility] Comment on above: Result Comment: For patients on eltrombopag therapy, use of Dimension [place] TBIL is not recommended. Performed By: #### L 501.5200, L100.0100, L501.9520, L503.6620, L503.6005, L500.2500, L500.3400 ####[facility] [address] [place], [address] Bilirubin.direct [Mass/Vol] 0.26 mg/dL Normal 0.00-0.30 [facility] Comment on above: Performed By: #### L 501.5200, L100.0100, L501.9520, L503.6620, L503.6005, L500.2500, L500.3400 ####[facility] [address] [place], [address] Globulin (S) [Mass/Vol] 3.7 g/dL Normal 2.2-4.2 [facility] Comment on above: Performed By: #### L 501.5200, L100.0100, L501.9520, L503.6620, L503.6005, L500.2500, L500.3400 ####[facility] [address] [place], [address] T PROT 7.1 g/dL Normal 6.4-8.2 [facility] Comment on above: Performed By: #### L 501.5200, L100.0100, L501.9520, L503.6620, L503.6005, L500.2500, L500.3400 ####[facility] [address] [place], [address] Magnesiumon 10-21-2023 Magnesium [Mass/Vol] 2.2 mg/dL Normal 1.6-2.6 [facility] Comment on above: Performed By: #### L 501.5200, L100.0100, L501.9520, L503.6620, L503.6005, L500.2500, L500.3400 ####[facility] [address] [place], [address] Thyroid Stim Hormone (TSH)on 10-21-2023 TSH 0.168 uIU/mL Low 0.358-3.740 [facility] Comment on above: Performed By: #### L 501.5200, L100.0100, L501.9520, L503.6620, L503.6005, L500.2500, L500.3400 ####[facility] [address] [place], [address] POCT UA Automated manually r esultedon 10-17-2023 Appearance (U) Clear Clear [facility] Work Phone: Glucose Test strip (U) [Mass/Vol] Negative NEGATIVE mg/dl [facility] Work Phone: [phone] Hemoglobin Ql (U) LARGE (3+) Abnormal NEGATIVE [facility] Work Phone: [phone] Interpretation and review of laboratory results Abnormal [facility] Work Phone: [phone] Leukocyte esterase Test strip Ql (U) SMALL (1+) Abnormal NEGATIVE [facility] Work Phone: [phone] Nitrite Ql (U) Negative NEGATIVE [facility] Work Phone: [phone] pH (U) 8.5 [pH] No Reference Range Established [facility] Work Phone: [phone] POC Bilirubin, Urine SMALL (1+) Abnormal NEGATIVE [facility] Work Phone: [phone] POC Color, Urine Yellow Straw, Yellow, Light-Yellow [facility] Work Phone: POC Ketones, Urine Negative NEGATIVE mg/dl [facility] Work Phone: POC Protein, Urine >=300 (3+) Abnormal NEGATIVE, 30 (1+) mg/dl [facility] Work Phone: POC Specific [place], Urine 1.020 1.005 - 1.035 [facility] Work Phone: POC Urobilinogen, Urine 0.2 0.2, 1.0 EU/DL [facility] Work Phone: [facility] Work Phone: Pulmonary Visit Reporton Pulmonary Visit Report Normal [facility] Basic Metabolic Profile (BMP )on 10-14-2023 BUN Normal 7-18 [facility] Comment on above: Result Comment: Canc elled via OM: Order cancelled - Patient discharged Performed By: #### L 500.2500, L100.0100 ####[facility] [address] [place], [address] BUN/CRE Normal 10-20 [facility] Comment on above: Result Comment: Canc elled via OM: Order cancelled - Patient discharged Performed By: #### L 500.2500, L100.0100 ####[facility] [address] [place], [address] CA,Total Normal 8.5-10.1 [facility] Comment on above: Result Comment: Canc elled via OM: Order cancelled - Patient discharged Performed By: #### L 500.2500, L100.0100 ####[facility] [address] [place], [address] CL Normal 98-107 [facility] Comment on above: Result Comment: Canc elled via OM: Order cancelled - Patient discharged Performed By: #### L 500.2500, L100.0100 ####[facility] [address] [place], [address] CO2 Normal 21.0-32.0 [facility] Comment on above: Result Comment: Canc elled via OM: Order cancelled - Patient discharged Performed By: #### L 500.2500, L100.0100 ####[facility] [address] [place], [address] CREAT,SERUM Normal 0.70-1.30 [facility] Comment on above: Result Comment: Canc elled via OM: Order cancelled - Patient discharged Performed By: #### L 500.2500, L100.0100 ####[facility] [address] [place], [address] EST GFR Normal >60 [facility] Comment on above: Result Comment: Canc elled via OM: Order cancelled - Patient discharged Performed By: #### L 500.2500, L100.0100 ####[facility] [address] [place], [address] EST GFR - AA Normal >60 [facility] Comment on above: Result Comment: Canc elled via OM: Order cancelled - Patient discharged Performed By: #### L 500.2500, L100.0100 ####[facility] [address] [place], [address] GAP Normal 5-15 [facility] Comment on above: Result Comment: Canc elled via OM: Order cancelled - Patient discharged Performed By: #### L 500.2500, L100.0100 ####[facility] [address] [place], [address] GLU Normal 74-106 [facility] Comment on above: Result Comment: Canc elled via OM: Order cancelled - Patient discharged Performed By: #### L 500.2500, L100.0100 ####[facility] [address] [place], [address] Potassium Normal 3.5-5.1 [facility] Comment on above: Result Comment: Canc elled via OM: Order cancelled - Patient discharged Performed By: #### L 500.2500, L100.0100 ####[facility] [address] [place], [address] Basic Metabolic Profile (BMP) Normal 136-145 [facility] Comment on above: Result Comment: Canc elled via OM: Order cancelled - Patient discharged Performed By: #### L 500.2500, L100.0100 ####[facility] [address] [place], [address] CBC W/Diff, Automatedon 08-2 Absolute Neut Normal 2.0-7.7 [facility] Comment on above: Result Comment: Canc elled via OM: Order cancelled - Patient discharged Performed By: #### L 500.2500, L100.0100 ####[facility] [address] [place], [address] HCT Normal 40-54 [facility] Comment on above: Result Comment: Canc elled via OM: Order cancelled - Patient discharged Performed By: #### L 500.2500, L100.0100 ####[facility] [address] [place], [address] HGB Normal 13.0-16.5 [facility] Comment on above: Result Comment: Canc elled via OM: Order cancelled - Patient discharged Performed By: #### L 500.2500, L100.0100 ####[facility] [address] [place], [address] MCH Normal 27.0-32.0 [facility] Comment on above: Result Comment: Canc elled via OM: Order cancelled - Patient discharged Performed By: #### L 500.2500, L100.0100 ####[facility] [address] [place], [address] MCHC Normal 32-36 [facility] Comment on above: Result Comment: Canc elled via OM: Order cancelled - Patient discharged Performed By: #### L 500.2500, L100.0100 ####[facility] [address] [place], [address] MCV Normal 80-94 [facility] Comment on above: Result Comment: Canc elled via OM: Order cancelled - Patient discharged Performed By: #### L 500.2500, L100.0100 ####[facility] [address] [place], [address] NEUT% Normal 47-70 [facility] Comment on above: Result Comment: Canc elled via OM: Order cancelled - Patient discharged Performed By: #### L 500.2500, L100.0100 ####[facility] [address] [place], [address] PLT Normal 150-450 [facility] Comment on above: Result Comment: Canc elled via OM: Order cancelled - Patient discharged Performed By: #### L 500.2500, L100.0100 ####[facility] [address] [place], [address] RBC Normal 4.6-6.2 [facility] Comment on above: Result Comment: Canc elled via OM: Order cancelled - Patient discharged Performed By: #### L 500.2500, L100.0100 ####[facility] [address] [place], [address] RDW CV Normal 11.6-14.6 [facility] Comment on above: Result Comment: Canc elled via OM: Order cancelled - Patient discharged Performed By: #### L 500.2500, L100.0100 ####[facility] [address] [place], [address] RDW SD Normal 35.1-43.9 [facility] Comment on above: Result Comment: Canc elled via OM: Order cancelled - Patient discharged Performed By: #### L 500.2500, L100.0100 ####[facility] [address] [place], [address] WBC Normal 4.4-11.0 [facility] Comment on above: Result Comment: Canc elled via OM: Order cancelled - Patient discharged Performed By: #### L 500.2500, L100.0100 ####[facility] [address] [place], [address] Basic Metabolic Profile (BMP )on 10-11-2023 BUN/CRE 21.5 RATIO High 10-20 [facility] Comment on above: Performed By: #### L 500.2500, L100.0100 ####[facility] [address] [place], [address] CA,Total 9.3 mg/dL Normal 8.5-10.1 [facility] Comment on above: Performed By: #### L 500.2500, L100.0100 ####[facility] [address] [place], [address] Chloride [Moles/Vol] 103 mmol/L Normal 98-107 [facility] Comment on above: Performed By: #### L 500.2500, L100.0100 ####[facility] [address] [place], [address] CO2 [Moles/Vol] 26.0 mmol/L Normal 21.0-32.0 [facility] Comment on above: Performed By: #### L 500.2500, L100.0100 ####[facility] [address] [place], [address] Creatinine [Mass/Vol] 1.30 mg/dL Normal 0.70-1.30 [facility] Comment on above: Result Comment: The validity of the calculated GFR GFRAA in patients over70 years has not been determined. Clinical correlation isessential. Performed By: #### L 500.2500, L100.0100 ####[facility] [address] [place], [address] ECRCL 63.19 ml/min Normal [facility] Comment on above: Performed By: #### L 500.2500, L100.0100 ####[facility] [address] [place], [address] EST GFR - AA 71 mL/min Normal >60 [facility] Comment on above: Result Comment: Afri can English GFR Calc Performed By: #### L 500.2500, L100.0100 ####[facility] [address] [place], [address] GAP 9 Normal 5-15 [facility] Comment on above: Performed By: #### L 500.2500, L100.0100 ####[facility] [address] [place], [address] GFR/1.73 sq M.predicted among non-blacks MDRD (S/P/Bld) [Vol rate/Area] 59 mL/min/{1.73_m2} Low >60 [facility] Comment on above: Result Comment: Non- GFR Calc Performed By: #### L 500.2500, L100.0100 ####[facility] [address] [place], [address] Glucose [Mass/Vol] 106 mg/dL Normal 74-106 [facility] Comment on above: Result Comment: Fast ing Glucose result from 100 to 125 mg/dLsuggests IMPAIRED HOMEOSTASIS per A.D.A. criteria. Performed By: #### L 500.2500, L100.0100 ####[facility] [address] [place], [address] Potassium [Moles/Vol] 3.7 mmol/L Normal 3.5-5.1 [facility] Comment on above: Performed By: #### L 500.2500, L100.0100 ####[facility] [address] [place], [address] Sodium [Moles/Vol] 138 mmol/L Normal 136-145 [facility] Comment on above: Performed By: #### L 500.2500, L100.0100 ####[facility] [address] [place], [address] Urea nitrogen [Mass/Vol] 28 mg/dL High 7-18 [facility] Comment on above: Performed By: #### L 500.2500, L100.0100 ####[facility] [address] [place], [address] CBC W/Diff, Automatedon 09-19 Absolute Lymph 1.00 X10 3/uL Normal 0.83-4.51 [facility] Comment on above: Performed By: #### L 500.2500, L100.0100 ####[facility] [address] [place], [address] Absolute Neut 11.8 X10 3/uL High 2.0-7.7 [facility] Comment on above: Performed By: #### L 500.2500, L100.0100 ####[facility] [address] [place], [address] Basophils/100 WBC (Bld) 0.2 % Normal 0-[address] [facility] Comment on above: Performed By: #### L 500.2500, L100.0100 ####[facility] [address] [place], [address] Eosinophils/100 WBC (Bld) 0.1 % Normal 0-5 [facility] Comment on above: Performed By: #### L 500.2500, L100.0100 ####[facility] [address] [place], [address] Erythrocyte distribution width (RBC) [Ratio] 14.1 % Normal 11.6-14.6 [facility] Comment on above: Performed By: #### L 500.2500, L100.0100 ####[facility] [address] [place], [address] Hematocrit (Bld) [Volume fraction] 41.5 % Normal 40-54 [facility] Comment on above: Performed By: #### L 500.2500, L100.0100 ####[facility] [address] [place], [address] Hemoglobin (Bld) [Mass/Vol] 13.6 g/dL Normal 13.0-16.5 [facility] Comment on above: Performed By: #### L 500.2500, L100.0100 ####[facility] [address] [place], [address] IG% 0.500 Normal 0.0-0.9 [facility] Comment on above: Result Comment: IG% - Immature Granulocytes (promyelocytes, myelocytes andmetamyelocytes) > 1% indicates that a LEFT SHIFT is Present. Performed By: #### L 500.2500, L100.0100 ####[facility] [address] [place], [address] Lymphocytes/100 WBC (Bld) 7.2 % Low 19-41 [facility] Comment on above: Performed By: #### L 500.2500, L100.0100 ####[facility] [address] [place], [address] MCH (RBC) [Entitic mass] 30.6 pg Normal 27.0-32.0 [facility] Comment on above: Performed By: #### L 500.2500, L100.0100 ####[facility] [address] [place], [address] MCHC (RBC) [Mass/Vol] 32.8 g/dL Normal 32-36 [facility] Comment on above: Performed By: #### L 500.2500, L100.0100 ####[facility] [address] [place], [address] MCV (RBC) [Entitic vol] 93.5 fL Normal 80-[address] [facility] Comment on above: Performed By: #### L 500.2500, L100.0100 ####[facility] [address] [place], [address] Monocytes/100 WBC (Bld) 7.0 % Normal 0-[address] [facility] Comment on above: Performed By: #### L 500.2500, L100.0100 ####[facility] [address] [place], [address] Neutrophils/100 WBC (Bld) 85.0 % High 47-70 [facility] Comment on above: Performed By: #### L 500.2500, L100.0100 ####[facility] [address] [place], [address] Nucleated RBC (Bld) [#/Vol] 0 10*3/uL Normal 0-5 [facility] Comment on above: Performed By: #### L 500.2500, L100.0100 ####[facility] [address] [place], [address] Platelet mean volume (Bld) [Entitic vol] 12.4 fL High 6.2-12.0 [facility] Comment on above: Performed By: #### L 500.2500, L100.0100 ####[facility] [address] [place], [address] Platelets (Bld) [#/Vol] 127 10*3/uL Low 150-450 [facility] Comment on above: Performed By: #### L 500.2500, L100.0100 ####[facility] [address] [place], [address] RBC (Bld) [#/Vol] 4.44 10*6/uL Low 4.6-6.2 [facility] Comment on above: Performed By: #### L 500.2500, L100.0100 ####[facility] [address] [place], [address] RDW SD 49.0 fl High 35.1-43.9 [facility] Comment on above: Performed By: #### L 500.2500, L100.0100 ####[facility] [address] [place], [address] WBC (Bld) [#/Vol] 13.9 10*3/uL High 4.4-11.0 [facility] Comment on above: Performed By: #### L 500.2500, L100.0100 ####[facility] [address] [place], [address] Emergency Department Summary on 10-11-2023 Emergency Department Summary Normal [facility] Urinalysis, Completeon 10-10 BACTERIA 2+ /hpf Normal None Seen [facility] Comment on above: Order Comment: COLOR OF URINE MAY AFFECT DIPSTICK RESULTS.UTILITY FORESTER TO SPECIFY Performed By: #### L 400.0001 ####[facility] [address] [place], [address] WBC 5-10 SEEN Normal 0-5 [facility] Comment on above: Order Comment: COLOR OF URINE MAY AFFECT DIPSTICK RESULTS.UTILITY FORESTER TO SPECIFY Performed By: #### L 400.0001 ####[facility] [address] [place], [address] RBC > 100 SEEN Normal 0-5 [facility] Comment on above: Order Comment: COLOR OF URINE MAY AFFECT DIPSTICK RESULTS.UTILITY FORESTER TO SPECIFY Performed By: #### L 400.0001 ####[facility] [address] [place], [address] EPI,SQUAMOUS 0 SEEN Normal 0-[address] [place] [address] Comment on above: Order Comment: COLOR OF URINE MAY AFFECT DIPSTICK RESULTS.UTILITY FORESTER TO SPECIFY Performed By: #### L 400.0001 ####[facility] [address] [place], [address] Mucus Ql (Urine sed) 0 SEEN Normal [facility] Comment on above: Order Comment: COLOR OF URINE MAY AFFECT DIPSTICK RESULTS.UTILITY FORESTER TO SPECIFY Performed By: #### L 400.0001 ####[facility] [address] [place], [address] Cardiology Visit Reporton Cardiology Visit Report Normal [facility] Basic Metabolic Profile (BMP )on 10-07-2023 BUN Normal 7-18 [facility] Comment on above: Result Comment: Canc elled via OM: Order cancelled - Patient discharged Performed By: #### L 100.0100, L500.2500 ####[facility] [address] [place], [address] BUN/CRE Normal 10-20 [facility] Comment on above: Result Comment: Canc elled via OM: Order cancelled - Patient discharged Performed By: #### L 100.0100, L500.2500 ####[facility] [address] [place], [address] CA,Total Normal 8.5-10.1 [facility] Comment on above: Result Comment: Canc elled via OM: Order cancelled - Patient discharged Performed By: #### L 100.0100, L500.2500 ####[facility] [address] [place], [address] CL Normal 98-107 [facility] Comment on above: Result Comment: Canc elled via OM: Order cancelled - Patient discharged Performed By: #### L 100.0100, L500.2500 ####[facility] [address] [place], [address] CO2 Normal 21.0-32.0 [facility] Comment on above: Result Comment: Canc elled via OM: Order cancelled - Patient discharged Performed By: #### L 100.0100, L500.2500 ####[facility] [address] [place], [address] CREAT,SERUM Normal 0.70-1.30 [facility] Comment on above: Result Comment: Canc elled via OM: Order cancelled - Patient discharged Performed By: #### L 100.0100, L500.2500 ####[facility] [address] [place], [address] EST GFR Normal >60 [facility] Comment on above: Result Comment: Canc elled via OM: Order cancelled - Patient discharged Performed By: #### L 100.0100, L500.2500 ####[facility] [address] [place], [address] EST GFR - AA Normal >60 [facility] Comment on above: Result Comment: Canc elled via OM: Order cancelled - Patient discharged Performed By: #### L 100.0100, L500.2500 ####[facility] [address] [place], [address] GAP Normal 5-15 [facility] Comment on above: Result Comment: Canc elled via OM: Order cancelled - Patient discharged Performed By: #### L 100.0100, L500.2500 ####[facility] [address] [place], [address] GLU Normal 74-106 [facility] Comment on above: Result Comment: Canc elled via OM: Order cancelled - Patient discharged Performed By: #### L 100.0100, L500.2500 ####[facility] [address] [place], [address] Potassium Normal 3.5-5.1 [facility] Comment on above: Result Comment: Canc elled via OM: Order cancelled - Patient discharged Performed By: #### L 100.0100, L500.2500 ####[facility] [address] [place], [address] Basic Metabolic Profile (BMP) Normal 136-145 [facility] Comment on above: Result Comment: Canc elled via OM: Order cancelled - Patient discharged Performed By: #### L 100.0100, L500.2500 ####[facility] [address] [place], [address] CBC W/Diff, Automatedon 08-1 Absolute Neut Normal 2.0-7.7 [facility] Comment on above: Result Comment: Canc elled via OM: Order cancelled - Patient discharged Performed By: #### L 100.0100, L500.2500 ####[facility] [address] [place], [address] HCT Normal 40-54 [facility] Comment on above: Result Comment: Canc elled via OM: Order cancelled - Patient discharged Performed By: #### L 100.0100, L500.2500 ####[facility] [address] [place], [address] HGB Normal 13.0-16.5 [facility] Comment on above: Result Comment: Canc elled via OM: Order cancelled - Patient discharged Performed By: #### L 100.0100, L500.2500 ####[facility] [address] [place], [address] MCH Normal 27.0-32.0 [facility] Comment on above: Result Comment: Canc elled via OM: Order cancelled - Patient discharged Performed By: #### L 100.0100, L500.2500 ####[facility] [address] [place], [address] MCHC Normal 32-36 [facility] Comment on above: Result Comment: Canc elled via OM: Order cancelled - Patient discharged Performed By: #### L 100.0100, L500.2500 ####[facility] [address] [place], [address] MCV Normal 80-94 [facility] Comment on above: Result Comment: Canc elled via OM: Order cancelled - Patient discharged Performed By: #### L 100.0100, L500.2500 ####[facility] [address] [place], [address] NEUT% Normal 47-70 [facility] Comment on above: Result Comment: Canc elled via OM: Order cancelled - Patient discharged Performed By: #### L 100.0100, L500.2500 ####[facility] [address] [place], [address] PLT Normal 150-450 [facility] Comment on above: Result Comment: Canc elled via OM: Order cancelled - Patient discharged Performed By: #### L 100.0100, L500.2500 ####[facility] [address] [place], [address] RBC Normal 4.6-6.2 [facility] Comment on above: Result Comment: Canc elled via OM: Order cancelled - Patient discharged Performed By: #### L 100.0100, L500.2500 ####[facility] [address] [place], [address] RDW CV Normal 11.6-14.6 [facility] Comment on above: Result Comment: Canc elled via OM: Order cancelled - Patient discharged Performed By: #### L 100.0100, L500.2500 ####[facility] [address] [place], [address] RDW SD Normal 35.1-43.9 [facility] Comment on above: Result Comment: Canc elled via OM: Order cancelled - Patient discharged Performed By: #### L 100.0100, L500.2500 ####[facility] [address] [place], [address] WBC Normal 4.4-11.0 [facility] Comment on above: Result Comment: Canc elled via OM: Order cancelled - Patient discharged Performed By: #### L 100.0100, L500.2500 ####[facility] [address] [place], [address] Neurology Visit Reporton Neurology Visit Report Normal [facility] Basic Metabolic Profile (BMP )on 09-30-2023 BUN Normal 7-18 [facility] Comment on above: Result Comment: Canc elled via OM: Order cancelled - Patient discharged Performed By: #### L 500.2500, L100.0100 ####[facility] [address] [place], [address] BUN/CRE Normal 10-20 [facility] Comment on above: Result Comment: Canc elled via OM: Order cancelled - Patient discharged Performed By: #### L 500.2500, L100.0100 ####[facility] [address] [place], [address] CA,Total Normal 8.5-10.1 [facility] Comment on above: Result Comment: Canc elled via OM: Order cancelled - Patient discharged Performed By: #### L 500.2500, L100.0100 ####[facility] [address] [place], [address] CL Normal 98-107 [facility] Comment on above: Result Comment: Canc elled via OM: Order cancelled - Patient discharged Performed By: #### L 500.2500, L100.0100 ####[facility] [address] [place], [address] CO2 Normal 21.0-32.0 [facility] Comment on above: Result Comment: Canc elled via OM: Order cancelled - Patient discharged Performed By: #### L 500.2500, L100.0100 ####[facility] [address] [place], [address] CREAT,SERUM Normal 0.70-1.30 [facility] Comment on above: Result Comment: Canc elled via OM: Order cancelled - Patient discharged Performed By: #### L 500.2500, L100.0100 ####[facility] [address] [place], [address] EST GFR Normal >60 [facility] Comment on above: Result Comment: Canc elled via OM: Order cancelled - Patient discharged Performed By: #### L 500.2500, L100.0100 ####[facility] [address] [place], [address] EST GFR - AA Normal >60 [facility] Comment on above: Result Comment: Canc elled via OM: Order cancelled - Patient discharged Performed By: #### L 500.2500, L100.0100 ####[facility] [address] [place], [address] GAP Normal 5-15 [facility] Comment on above: Result Comment: Canc elled via OM: Order cancelled - Patient discharged Performed By: #### L 500.2500, L100.0100 ####[facility] [address] [place], [address] GLU Normal 74-106 [facility] Comment on above: Result Comment: Canc elled via OM: Order cancelled - Patient discharged Performed By: #### L 500.2500, L100.0100 ####[facility] [address] [place], [address] Potassium Normal 3.5-5.1 [facility] Comment on above: Result Comment: Canc elled via OM: Order cancelled - Patient discharged Performed By: #### L 500.2500, L100.0100 ####[facility] [address] [place], [address] Basic Metabolic Profile (BMP) Normal 136-145 [facility] Comment on above: Result Comment: Canc elled via OM: Order cancelled - Patient discharged Performed By: #### L 500.2500, L100.0100 ####[facility] [address] [place], [address] CBC W/Diff, Automatedon - Absolute Neut Normal 2.0-7.7 [facility] Comment on above: Result Comment: Canc elled via OM: Order cancelled - Patient discharged Performed By: #### L 500.2500, L100.0100 ####[facility] [address] [place], [address] HCT Normal 40-54 [facility] Comment on above: Result Comment: Canc elled via OM: Order cancelled - Patient discharged Performed By: #### L 500.2500, L100.0100 ####[facility] [address] [place], [address] HGB Normal 13.0-16.5 [facility] Comment on above: Result Comment: Canc elled via OM: Order cancelled - Patient discharged Performed By: #### L 500.2500, L100.0100 ####[facility] [address] [place], [address] MCH Normal 27.0-32.0 [facility] Comment on above: Result Comment: Canc elled via OM: Order cancelled - Patient discharged Performed By: #### L 500.2500, L100.0100 ####[facility] [address] [place], [address] MCHC Normal 32-36 [facility] Comment on above: Result Comment: Canc elled via OM: Order cancelled - Patient discharged Performed By: #### L 500.2500, L100.0100 ####[facility] [address] [place], [address] MCV Normal 80-94 [facility] Comment on above: Result Comment: Canc elled via OM: Order cancelled - Patient discharged Performed By: #### L 500.2500, L100.0100 ####[facility] [address] [place], [address] NEUT% Normal 47-70 [facility] Comment on above: Result Comment: Canc elled via OM: Order cancelled - Patient discharged Performed By: #### L 500.2500, L100.0100 ####[facility] [address] [place], [address] PLT Normal 150-450 [facility] Comment on above: Result Comment: Canc elled via OM: Order cancelled - Patient discharged Performed By: #### L 500.2500, L100.0100 ####[facility] [address] [place], [address] RBC Normal 4.6-6.2 [facility] Comment on above: Result Comment: Canc elled via OM: Order cancelled - Patient discharged Performed By: #### L 500.2500, L100.0100 ####[facility] [address] [place], [address] RDW CV Normal 11.6-14.6 [facility] Comment on above: Result Comment: Canc elled via OM: Order cancelled - Patient discharged Performed By: #### L 500.2500, L100.0100 ####[facility] [address] [place], [address] RDW SD Normal 35.1-43.9 [facility] Comment on above: Result Comment: Canc elled via OM: Order cancelled - Patient discharged Performed By: #### L 500.2500, L100.0100 ####[facility] [address] [place], [address] WBC Normal 4.4-11.0 [facility] Comment on above: Result Comment: Canc elled via OM: Order cancelled - Patient discharged Performed By: #### L 500.2500, L100.0100 ####[facility] [address] [place], [address] Basic Metabolic Profile (BMP )on 09-23-2023 BUN Normal 7-18 [facility] Comment on above: Result Comment: Canc elled via OM: Order cancelled - Patient discharged Performed By: #### L 500.2500, L100.0100 ####[facility] [address] [place], [address] BUN/CRE Normal 10-20 [facility] Comment on above: Result Comment: Canc elled via OM: Order cancelled - Patient discharged Performed By: #### L 500.2500, L100.0100 ####[facility] [address] [place], [address] CA,Total Normal 8.5-10.1 [facility] Comment on above: Result Comment: Canc elled via OM: Order cancelled - Patient discharged Performed By: #### L 500.2500, L100.0100 ####[facility] [address] [place], [address] CL Normal 98-107 [facility] Comment on above: Result Comment: Canc elled via OM: Order cancelled - Patient discharged Performed By: #### L 500.2500, L100.0100 ####[facility] [address] [place], [address] CO2 Normal 21.0-32.0 [facility] Comment on above: Result Comment: Canc elled via OM: Order cancelled - Patient discharged Performed By: #### L 500.2500, L100.0100 ####[facility] [address] [place], [address] CREAT,SERUM Normal 0.70-1.30 [facility] Comment on above: Result Comment: Canc elled via OM: Order cancelled - Patient discharged Performed By: #### L 500.2500, L100.0100 ####[facility] [address] [place], [address] EST GFR Normal >60 [facility] Comment on above: Result Comment: Canc elled via OM: Order cancelled - Patient discharged Performed By: #### L 500.2500, L100.0100 ####[facility] [address] [place], [address] EST GFR - AA Normal >60 [facility] Comment on above: Result Comment: Canc elled via OM: Order cancelled - Patient discharged Performed By: #### L 500.2500, L100.0100 ####[facility] [address] [place], [address] GAP Normal 5-15 [facility] Comment on above: Result Comment: Canc elled via OM: Order cancelled - Patient discharged Performed By: #### L 500.2500, L100.0100 ####[facility] [id number] [place], [address] GLU Normal 74-106 [facility] Comment on above: Result Comment: Canc elled via OM: Order cancelled - Patient discharged Performed By: #### L 500.2500, L100.0100 ####[facility] [address] [place], [address] Potassium Normal 3.5-5.1 [facility] Comment on above: Result Comment: Canc elled via OM: Order cancelled - Patient discharged Performed By: #### L 500.2500, L100.0100 ####[facility] [address] [place], [address] Basic Metabolic Profile (BMP) Normal 136-145 [facility] Comment on above: Result Comment: Canc elled via OM: Order cancelled - Patient discharged Performed By: #### L 500.2500, L100.0100 ####[facility] [address] [place], [address] CBC W/Diff, Automatedon 08-0 5-2023 Absolute Neut Normal 2.0-7.7 [facility] Comment on above: Result Comment: Canc elled via OM: Order cancelled - Patient discharged Performed By: #### L 500.2500, L100.0100 ####[facility] [address] [place], [address] HCT Normal 40-54 [facility] Comment on above: Result Comment: Canc elled via OM: Order cancelled - Patient discharged Performed By: #### L 500.2500, L100.0100 ####[facility] [address] [place], [address] HGB Normal 13.0-16.5 [facility] Comment on above: Result Comment: Canc elled via OM: Order cancelled - Patient discharged Performed By: #### L 500.2500, L100.0100 ####[facility] [address] [place], [address] MCH Normal 27.0-32.0 [facility] Comment on above: Result Comment: Canc elled via OM: Order cancelled - Patient discharged Performed By: #### L 500.2500, L100.0100 ####[facility] [address] [place], [address] MCHC Normal 32-36 [facility] Comment on above: Result Comment: Canc elled via OM: Order cancelled - Patient discharged Performed By: #### L 500.2500, L100.0100 ####[facility] [address] [place], [address] MCV Normal 80-94 [facility] Comment on above: Result Comment: Canc elled via OM: Order cancelled - Patient discharged Performed By: #### L 500.2500, L100.0100 ####[facility] [address] [place], [address] NEUT% Normal 47-70 [facility] Comment on above: Result Comment: Canc elled via OM: Order cancelled - Patient discharged Performed By: #### L 500.2500, L100.0100 ####[facility] [address] [place], [address] PLT Normal 150-450 [facility] Comment on above: Result Comment: Canc elled via OM: Order cancelled - Patient discharged Performed By: #### L 500.2500, L100.0100 ####[facility] [address] [place], [address] RBC Normal 4.6-6.2 [facility] Comment on above: Result Comment: Canc elled via OM: Order cancelled - Patient discharged Performed By: #### L 500.2500, L100.0100 ####[facility] [address] [place], [address] RDW CV Normal 11.6-14.6 [facility] Comment on above: Result Comment: Canc elled via OM: Order cancelled - Patient discharged Performed By: #### L 500.2500, L100.0100 ####[facility] [address] [place], [address] RDW SD Normal 35.1-43.9 [facility] Comment on above: Result Comment: Canc elled via OM: Order cancelled - Patient discharged Performed By: #### L 500.2500, L100.0100 ####[facility] [address] [place], [address] WBC Normal 4.4-11.0 [facility] Comment on above: Result Comment: Canc elled via OM: Order cancelled - Patient discharged Performed By: #### L 500.2500, L100.0100 ####[facility] [address] [place], [address] COVID 19 AG RAPID (JAZIEL Anderson)on 09-19-2023 SARS-CoV-2 (COVID-19) RNA YOLY+probe Ql (Unsp spec) Normal [facility] Comment on above: Performed By: #### M 100.505 ####[facility] [address] [place], [address] CBC,PLATELETSon 09-07-2023 Erythrocyte distribution width (RBC) [Ratio] 14.3 % 10.9 - 14.3 % [facility] Hematocrit (Bld) [Volume fraction] 43.1 % 39.6 - 48.8 % [facility] Hemoglobin (Bld) [Mass/Vol] 13.9 g/dL 13.4 - 16.8 g/dL [facility] Interpretation and review of laboratory results Abnormal [facility] MCH (RBC) [Entitic mass] 30.6 pg 26.1 - 33.3 pg [facility] MCHC (RBC) [Mass/Vol] 32.3 g/dL 31.9 - 36.5 g/dL [facility] MCV (RBC) [Entitic vol] 94.9 fL High 79.0 - 94.5 fL [facility] Platelet mean volume (Bld) [Entitic vol] 12.1 fL 8.7 - 12.3 fL [facility] Platelets (Bld) [#/Vol] 130 10*3/uL Low 146 - 337 K/uL [facility] RBC (Bld) [#/Vol] 4.54 10*6/uL [facility] WBC (Bld) [#/Vol] 6.88 10*3/uL 3.73 - 10. 10 K/uL [facility] Hematocrit (Bld) [Volume fraction] 43.1 % Normal 39.6-48.8 [facility] Comment on above: Performed By: #### [facility] #### [facility] (DEFAULT) [address] [address] Hemoglobin (Bld) [Mass/Vol] 13.9 g/dL Normal 13.4-16.8 [facility] Comment on above: Performed By: #### [facility] #### [facility] (DEFAULT) [address] [address] MCV (RBC) [Entitic vol] 94.9 fL High 79.0-94.5 [facility] Comment on above: Performed By: #### H EMOGC #### [facility] (DEFAULT) [address] [place] [address] Mean Cell Hgb 30.6 pg Normal 26.1-33.3 [facility] Comment on above: Performed By: #### H EMOGC #### [facility] (DEFAULT) [address] [address] Mean Cell Hgb Conc 32.3 g/dL Normal 31.9-36.5 [facility] Comment on above: Performed By: #### H EMOGC #### [facility] (DEFAULT) [address] [place] [address] Platelet mean volume (Bld) [Entitic vol] 12.1 fL Normal 8.7-12.3 [facility] Comment on above: Performed By: #### H EMOGC #### [facility] (DEFAULT) [address] [place] [address] Platelets (Bld) [#/Vol] 130 10*3/uL Low 146-337 [facility] Comment on above: Performed By: #### H EMOGC #### [facility] (DEFAULT) [address] [place] [address] RBC (Bld) [#/Vol] 4.54 10*6/uL Normal 4.38-5.83 [facility] Comment on above: Performed By: #### H EMOGC #### [facility] (DEFAULT) [address] [place] [address] RBC Distribution 14.3 % Normal 10.9-14.3 [facility] Comment on above: Performed By: #### H EMOGC #### [facility] (DEFAULT) [address] [place] [address] WBC (Bld) [#/Vol] 6.88 10*3/uL Normal 3.73-10.10 [facility] Comment on above: Performed By: #### H EMOGC #### [facility] (DEFAULT) [address] [place] [address] CHEM 7 (LYTES,BUN,CREA,GLUC) on 09-07-2023 Anion gap [Moles/Vol] 14 mmol/L 7 - 17 mmol/L [facility] Chloride [Moles/Vol] 101 mmol/L 98 - 10 8 mmol/L [facility] CO2 [Moles/Vol] 29 mmol/L 21 - 31 mmol/L [facility] Creatinine [Mass/Vol] 1.07 mg/dL 0.70 - 1.30 mg/dL [facility] eGFR, CKD-EPI, Male 77 - PINF [facility] Comment on above: Reported eGFR is bas ed on the CKD-EPI 2020 equation using creatinine, age, and sex. Glucose [Mass/Vol] 110 mg/dL High 70 - 99 mg/dL [facility] Interpretation and review of laboratory results Abnormal [facility] Osmolality Calc [Osmolality] 294 [facility] Potassium [Moles/Vol] 3.7 mmol/L 3.5 - 5.0 mmol/L [facility] Sodium [Moles/Vol] 140 mmol/L 135 - 145 mmol/L [facility] Urea nitrogen [Mass/Vol] 16 mg/dL 7 - 25 mg/dL [facility] Urea nitrogen/Creatinine [Mass ratio] 15 mg/mg [facility] Anion gap [Moles/Vol] 14 mmol/L Normal 7-17 [facility] Comment on above: Performed By: #### C HM7 #### [facility] (DEFAULT) [address] [address] Chloride [Moles/Vol] 101 mmol/L Normal 98-108 [facility] Comment on above: Performed By: #### C HM7 #### [facility] (DEFAULT) [address] [address] CO2 [Moles/Vol] 29 mmol/L Normal 21-31 [facility] Comment on above: Performed By: #### C HM7 #### [facility] (DEFAULT) [address] [address] Creatinine [Mass/Vol] 1.07 mg/dL Normal 0.70-1.30 [facility] Comment on above: Performed By: #### C HM7 #### [facility] (DEFAULT) [address] [address] GFR/1.73 sq M.predicted among non-blacks MDRD (S/P/Bld) [Vol rate/Area] 77 mL/min/{1.73_m2} Normal >=60 [facility] Comment on above: Result Comment: Repo rted eGFR is based on the CKD-EPI 2020 equation using creatinine, age, and sex. Performed By: #### C HM7 #### [facility] (DEFAULT) [address] [place] [address] Glucose [Mass/Vol] 110 mg/dL High 70-99 [facility] Comment on above: Performed By: #### C HM7 #### [facility] (DEFAULT) [address] [place] [address] Osmolality [Osmolality] 294 mosm/kg Normal 278-305 [facility] Comment on above: Performed By: #### C HM7 #### [facility] (DEFAULT) [address] [place] [address] Potassium [Moles/Vol] 3.7 mmol/L Normal 3.5-5.0 [facility] Comment on above: Performed By: #### C HM7 #### [facility] (DEFAULT) [address] [place] [address] Sodium [Moles/Vol] 140 mmol/L Normal 135-145 [facility] Comment on above: Performed By: #### C HM7 #### [facility] (DEFAULT) [address] [address] Urea nitrogen [Mass/Vol] 16 mg/dL Normal 7-25 [facility] Comment on above: Performed By: #### C HM7 #### [facility] (DEFAULT) [address] [place] [address] Urea nitrogen/Creatinine [Mass ratio] 15 mg/mg Normal [facility] Comment on above: Performed By: #### C HM7 #### [facility] (DEFAULT) [address] [place] [address] CBC,PLATELETSon 09-06-2023 Erythrocyte distribution width (RBC) [Ratio] 14.4 % High 10.9 - 14.3 % [facility] Hematocrit (Bld) [Volume fraction] 43.0 % 39.6 - 48.8 % [facility] Hemoglobin (Bld) [Mass/Vol] 14.1 g/dL 13.4 - 16.8 g/dL [facility] Interpretation and review of laboratory results Abnormal [facility] MCH (RBC) [Entitic mass] 31.0 pg 26.1 - 33.3 pg [facility] MCHC (RBC) [Mass/Vol] 32.8 g/dL 31.9 - 36.5 g/dL [facility] MCV (RBC) [Entitic vol] 94.5 fL 79.0 - 94.5 fL [facility] Platelet mean volume (Bld) [Entitic vol] [facility] Comment on above: Not measured Platelets (Bld) [#/Vol] 137 10*3/uL Low 146 - 337 K/uL [facility] RBC (Bld) [#/Vol] 4.55 10*6/uL [facility] WBC (Bld) [#/Vol] 7.62 10*3/uL 3.73 - 10. 10 K/uL [facility] Hematocrit (Bld) [Volume fraction] 43.0 % Normal 39.6-48.8 [facility] Comment on above: Performed By: #### [facility] #### [facility] (DEFAULT) [address] [place] [address] Hemoglobin (Bld) [Mass/Vol] 14.1 g/dL Normal 13.4-16.8 [facility] Comment on above: Performed By: #### [facility] #### [facility] (DEFAULT) [address] [place] [address] MCV (RBC) [Entitic vol] 94.5 fL Normal 79.0-94.5 [facility] Comment on above: Performed By: #### [facility] #### [facility] (DEFAULT) [address] [place] [address] Mean Cell Hgb 31.0 pg Normal 26.1-33.3 [facility] Comment on above: Performed By: #### H EMOGC #### [facility] (DEFAULT) [address] [address] Mean Cell Hgb Conc 32.8 g/dL Normal 31.9-36.5 [facility] Comment on above: Performed By: #### H EMOGC #### [facility] (DEFAULT) [address] [address] Mean Platelet Volume Normal [facility] Comment on above: Result Comment: Not measured Performed By: #### H EMOGC #### [facility] (DEFAULT) [address] [address] Platelets (Bld) [#/Vol] 137 10*3/uL Low 146-337 [facility] Comment on above: Performed By: #### H EMOGC #### [facility] (DEFAULT) [address] [address] RBC (Bld) [#/Vol] 4.55 10*6/uL Normal 4.38-5.83 [facility] Comment on above: Performed By: #### H EMOGC #### [facility] (DEFAULT) [address] [address] RBC Distribution 14.4 % High 10.9-14.3 [facility] Comment on above: Performed By: #### H EMOGC #### [facility] (DEFAULT) [address] [address] WBC (Bld) [#/Vol] 7.62 10*3/uL Normal 3.73-10.10 [facility] Comment on above: Performed By: #### H EMOGC #### [facility] (DEFAULT) [address] [address] CHEM 7 (LYTES,BUN,CREA,GLUC) on 09-06-2023 Anion gap [Moles/Vol] 15 mmol/L 7 - 17 mmol/L [facility] Chloride [Moles/Vol] 102 mmol/L 98 - 10 8 mmol/L [facility] CO2 [Moles/Vol] 27 mmol/L 21 - 31 mmol/L [facility] Creatinine [Mass/Vol] 1.07 mg/dL 0.70 - 1.30 mg/dL [facility] eGFR, CKD-EPI, Male 77 - PINF [facility] Comment on above: Reported eGFR is bas ed on the CKD-EPI 2020 equation using creatinine, age, and sex. Glucose [Mass/Vol] 68 mg/dL Low 70 - 99 mg/dL [facility] Interpretation and review of laboratory results Abnormal [facility] Osmolality Calc [Osmolality] 292 [facility] Potassium [Moles/Vol] 4.0 mmol/L 3.5 - 5.0 mmol/L [facility] Comment on above: Specimen hemolyzed. Potassium results may be falsely elevated masking hypokalemia. Interpret within the clinical context. Sodium [Moles/Vol] 140 mmol/L 135 - 145 mmol/L [facility] Urea nitrogen [Mass/Vol] 16 mg/dL 7 - 25 mg/dL [facility] Urea nitrogen/Creatinine [Mass ratio] 15 mg/mg [facility] Anion gap [Moles/Vol] 15 mmol/L Normal 7-17 [facility] Comment on above: Performed By: #### C HM7 #### [facility] (DEFAULT) [address] [place] [address] Chloride [Moles/Vol] 102 mmol/L Normal 98-108 [facility] Comment on above: Performed By: #### C HM7 #### [facility] (DEFAULT) [address] [place] [address] CO2 [Moles/Vol] 27 mmol/L Normal 21-31 [facility] Comment on above: Performed By: #### C HM7 #### [facility] (DEFAULT) [address] [place] [address] Creatinine [Mass/Vol] 1.07 mg/dL Normal 0.70-1.30 [facility] Comment on above: Performed By: #### C HM7 #### [facility] (DEFAULT) [address] [address] GFR/1.73 sq M.predicted among non-blacks MDRD (S/P/Bld) [Vol rate/Area] 77 mL/min/{1.73_m2} Normal >=60 [facility] Comment on above: Result Comment: Repo rted eGFR is based on the CKD-EPI 2020 equation using creatinine, age, and sex. Performed By: #### C HM7 #### [facility] (DEFAULT) [address] [address] Glucose [Mass/Vol] 68 mg/dL Low 70-99 [facility] Comment on above: Performed By: #### C HM7 #### [facility] (DEFAULT) [address] [address] Osmolality [Osmolality] 292 mosm/kg Normal 278-305 [facility] Comment on above: Performed By: #### C HM7 #### [facility] (DEFAULT) [address] [address] Potassium [Moles/Vol] 4.0 mmol/L Normal 3.5-5.0 [facility] Comment on above: Result Comment: Spec imen hemolyzed. Potassium results may be falsely elevated masking hypokalemia. Interpret within the clinical context. Performed By: #### C HM7 #### [facility] (DEFAULT) [address] [address] Sodium [Moles/Vol] 140 mmol/L Normal 135-145 [facility] Comment on above: Performed By: #### C HM7 #### [facility] (DEFAULT) [address] [address] Urea nitrogen [Mass/Vol] 16 mg/dL Normal 7-25 [facility] Comment on above: Performed By: #### C HM7 #### [facility] (DEFAULT) [address] [place] [address] Urea nitrogen/Creatinine [Mass ratio] 15 mg/mg Normal [facility] Comment on above: Performed By: #### C HM7 #### [facility] (DEFAULT) [address] [place] [address] GLUCOSE POCon 09-06-2023 Glucose [Mass/Vol] 98 mg/dL 70 - 99 mg/dL [facility] POC Sample Type CAPBL [facility] Test performed at address of the patient encounter. [facility] CBC,PLATELETSon 09-05-2023 Erythrocyte distribution width (RBC) [Ratio] 14.6 % High 10.9 - 14.3 % [facility] Hematocrit (Bld) [Volume fraction] 40.7 % 39.6 - 48.8 % [facility] Hemoglobin (Bld) [Mass/Vol] 13.5 g/dL 13.4 - 16.8 g/dL [facility] Interpretation and review of laboratory results Abnormal [facility] MCH (RBC) [Entitic mass] 31.4 pg 26.1 - 33.3 pg [facility] MCHC (RBC) [Mass/Vol] 33.2 g/dL 31.9 - 36.5 g/dL [facility] MCV (RBC) [Entitic vol] 94.7 fL High 79.0 - 94.5 fL [facility] Platelet mean volume (Bld) [Entitic vol] 12.0 fL 8.7 - 12.3 fL [facility] Platelets (Bld) [#/Vol] 130 10*3/uL Low 146 - 337 K/uL [facility] RBC (Bld) [#/Vol] 4.30 10*6/uL Low [facility] WBC (Bld) [#/Vol] 8.06 10*3/uL 3.73 - 10. 10 K/uL [facility] Hematocrit (Bld) [Volume fraction] 40.7 % Normal 39.6-48.8 [facility] Comment on above: Performed By: #### H EMOGC #### [facility] (DEFAULT) [address] [address] Hemoglobin (Bld) [Mass/Vol] 13.5 g/dL Normal 13.4-16.8 [facility] Comment on above: Performed By: #### H EMOGC #### [facility] (DEFAULT) [address] [address] MCV (RBC) [Entitic vol] 94.7 fL High 79.0-94.5 [facility] Comment on above: Performed By: #### H EMOGC #### [facility] (DEFAULT) [address] [address] Mean Cell Hgb 31.4 pg Normal 26.1-33.3 [facility] Comment on above: Performed By: #### H EMOGC #### [facility] (DEFAULT) [address] [address] Mean Cell Hgb Conc 33.2 g/dL Normal 31.9-36.5 [facility] Comment on above: Performed By: #### H EMOGC #### [facility] (DEFAULT) [address] [address] Platelet mean volume (Bld) [Entitic vol] 12.0 fL Normal 8.7-12.3 [facility] Comment on above: Performed By: #### H EMOGC #### [facility] (DEFAULT) [address] [address] Platelets (Bld) [#/Vol] 130 10*3/uL Low 146-337 [facility] Comment on above: Performed By: #### H EMOGC #### [facility] (DEFAULT) [address] [address] RBC (Bld) [#/Vol] 4.30 10*6/uL Low 4.38-5.83 [facility] Comment on above: Performed By: #### H EMOGC #### [facility] (DEFAULT) [address] [place] [address] RBC Distribution 14.6 % High 10.9-14.3 [facility] Comment on above: Performed By: #### [facility] #### [facility] (DEFAULT) [address] [place] [address] WBC (Bld) [#/Vol] 8.06 10*3/uL Normal 3.73-10.10 [facility] Comment on above: Performed By: #### [facility] #### [facility] (DEFAULT) [address] [place] [address] CHEM 7 (LYTES,BUN,CREA,GLUC) on 09-05-2023 Anion gap [Moles/Vol] 12 mmol/L 7 - 17 mmol/L [facility] Chloride [Moles/Vol] 105 mmol/L 98 - 10 8 mmol/L [facility] CO2 [Moles/Vol] 26 mmol/L 21 - 31 mmol/L [facility] Creatinine [Mass/Vol] 0.98 mg/dL 0.70 - 1.30 mg/dL [facility] eGFR, CKD-EPI, Male 86 - PINF [facility] Comment on above: Reported eGFR is bas ed on the CKD-EPI 2020 equation using creatinine, age, and sex. Glucose [Mass/Vol] 95 mg/dL 70 - 99 mg/dL [facility] Osmolality Calc [Osmolality] 292 [facility] Potassium [Moles/Vol] 3.6 mmol/L 3.5 - 5.0 mmol/L [facility] Sodium [Moles/Vol] 139 mmol/L 135 - 145 mmol/L [facility] Urea nitrogen [Mass/Vol] 20 mg/dL 7 - 25 mg/dL [facility] Urea nitrogen/Creatinine [Mass ratio] 20 mg/mg [facility] Anion gap [Moles/Vol] 12 mmol/L Normal 7-17 [facility] Comment on above: Performed By: #### C HM7 #### [facility] (DEFAULT) [address] [place] [address] Chloride [Moles/Vol] 105 mmol/L Normal 98-108 [facility] Comment on above: Performed By: #### C HM7 #### [facility] (DEFAULT) [address] [place] [address] CO2 [Moles/Vol] 26 mmol/L Normal 21-31 [facility] Comment on above: Performed By: #### C HM7 #### [facility] (DEFAULT) [address] [place] [address] Creatinine [Mass/Vol] 0.98 mg/dL Normal 0.70-1.30 [facility] Comment on above: Performed By: #### C HM7 #### [facility] (DEFAULT) [address] [place] [address] GFR/1.73 sq M.predicted among non-blacks MDRD (S/P/Bld) [Vol rate/Area] 86 mL/min/{1.73_m2} Normal >=60 [facility] Comment on above: Result Comment: Repo rted eGFR is based on the CKD-EPI 2020 equation using creatinine, age, and sex. Performed By: #### C HM7 #### [facility] (DEFAULT) [address] [place] [address] Glucose [Mass/Vol] 95 mg/dL Normal 70-99 [facility] Comment on above: Performed By: #### C HM7 #### [facility] (DEFAULT) [address] [place] [address] Osmolality [Osmolality] 292 mosm/kg Normal 278-305 [facility] Comment on above: Performed By: #### C HM7 #### [facility] (DEFAULT) [address] [place] [address] Potassium [Moles/Vol] 3.6 mmol/L Normal 3.5-5.0 [facility] Comment on above: Performed By: #### C HM7 #### [facility] (DEFAULT) [address] [place] [address] Sodium [Moles/Vol] 139 mmol/L Normal 135-145 [facility] Comment on above: Performed By: #### C HM7 #### [facility] (DEFAULT) [address] [place] [address] Urea nitrogen [Mass/Vol] 20 mg/dL Normal 7-25 [facility] Comment on above: Performed By: #### C HM7 #### [facility] (DEFAULT) [address] [place] [address] Urea nitrogen/Creatinine [Mass ratio] 20 mg/mg Normal [facility] Comment on above: Performed By: #### C HM7 #### [facility] (DEFAULT) [address] [place] [address] CBC,PLATELETSon 09-04-2023 Erythrocyte distribution width (RBC) [Ratio] 14.2 % 10.9 - 14.3 % [facility] Hematocrit (Bld) [Volume fraction] 49.3 % High 39.6 - 48.8 % [facility] Hemoglobin (Bld) [Mass/Vol] 15.9 g/dL 13.4 - 16.8 g/dL [facility] Interpretation and review of laboratory results Abnormal [facility] MCH (RBC) [Entitic mass] 30.8 pg 26.1 - 33.3 pg [facility] MCHC (RBC) [Mass/Vol] 32.3 g/dL 31.9 - 36.5 g/dL [facility] MCV (RBC) [Entitic vol] 95.4 fL High 79.0 - 94.5 fL [facility] Platelet mean volume (Bld) [Entitic vol] 12.2 fL 8.7 - 12.3 fL [facility] Platelets (Bld) [#/Vol] 148 10*3/uL 146 - 337 K/uL [facility] RBC (Bld) [#/Vol] 5.17 10*6/uL [facility] WBC (Bld) [#/Vol] 9.79 10*3/uL 3.73 - 10. 10 K/uL [facility] Hematocrit (Bld) [Volume fraction] 49.3 % High 39.6-48.8 [facility] Comment on above: Performed By: #### H EMOGC #### [facility] (DEFAULT) [address] [address] Hemoglobin (Bld) [Mass/Vol] 15.9 g/dL Normal 13.4-16.8 [facility] Comment on above: Performed By: #### H EMOGC #### [facility] (DEFAULT) [address] [address] MCV (RBC) [Entitic vol] 95.4 fL High 79.0-94.5 [facility] Comment on above: Performed By: #### H EMOGC #### [facility] (DEFAULT) [address] [address] Mean Cell Hgb 30.8 pg Normal 26.1-33.3 [facility] Comment on above: Performed By: #### H EMOGC #### [facility] (DEFAULT) [address] [address] Mean Cell Hgb Conc 32.3 g/dL Normal 31.9-36.5 [facility] Comment on above: Performed By: #### H EMOGC #### [facility] (DEFAULT) [address] [address] Platelet mean volume (Bld) [Entitic vol] 12.2 fL Normal 8.7-12.3 [facility] Comment on above: Performed By: #### H EMOGC #### [facility] (DEFAULT) [address] [address] Platelets (Bld) [#/Vol] 148 10*3/uL Normal 146-337 [facility] Comment on above: Performed By: #### [facility] #### [facility] (DEFAULT) [address] [place] [address] RBC (Bld) [#/Vol] 5.17 10*6/uL Normal 4.38-5.83 [facility] Comment on above: Performed By: #### H EMO #### [facility] (DEFAULT) [address] [place] [address] RBC Distribution 14.2 % Normal 10.9-14.3 [facility] Comment on above: Performed By: #### [facility] #### [facility] (DEFAULT) [address] [place] [address] WBC (Bld) [#/Vol] 9.79 10*3/uL Normal 3.73-10.10 [facility] Comment on above: Performed By: #### [facility] #### [facility] (DEFAULT) [address] [place] [address] CHEM 7 (LYTES,BUN,CREA,GLUC) Ordered By: Homar Scott on 09-04-2023 Anion gap [Moles/Vol] 17 mmol/L 7 - 17 mmol/L [facility] Chloride [Moles/Vol] 101 mmol/L 98 - 10 8 mmol/L [facility] CO2 [Moles/Vol] 27 mmol/L 21 - 31 mmol/L [facility] Creatinine [Mass/Vol] 0.97 mg/dL 0.70 - 1.30 mg/dL [facility] eGFR, CKD-EPI, Male 87 - PINF [facility] Comment on above: Reported eGFR is bas ed on the CKD-EPI 2020 equation using creatinine, age, and sex. Glucose [Mass/Vol] 98 mg/dL 70 - 99 mg/dL [facility] Osmolality Calc [Osmolality] 295 [facility] Potassium [Moles/Vol] 3.7 mmol/L 3.5 - 5.0 mmol/L [facility] Sodium [Moles/Vol] 141 mmol/L 135 - 145 mmol/L [facility] Urea nitrogen [Mass/Vol] 17 mg/dL 7 - 25 mg/dL [facility] Urea nitrogen/Creatinine [Mass ratio] 18 mg/mg [facility] CHEM 7 (LYTES,BUN,CREA,GLUC) on 09-04-2023 Anion gap [Moles/Vol] 17 mmol/L Normal 7-17 [facility] Comment on above: Performed By: #### C HM7 #### [facility] (DEFAULT) [address] [place] [address] Chloride [Moles/Vol] 101 mmol/L Normal 98-108 [facility] Comment on above: Performed By: #### C HM7 #### [facility] (DEFAULT) [address] [place] [address] CO2 [Moles/Vol] 27 mmol/L Normal 21-31 [facility] Comment on above: Performed By: #### C HM7 #### [facility] (DEFAULT) [address] [place] [address] Creatinine [Mass/Vol] 0.97 mg/dL Normal 0.70-1.30 [facility] Comment on above: Performed By: #### C HM7 #### [facility] (DEFAULT) [address] [place] [address] GFR/1.73 sq M.predicted among non-blacks MDRD (S/P/Bld) [Vol rate/Area] 87 mL/min/{1.73_m2} Normal >=60 [facility] Comment on above: Result Comment: Repo rted eGFR is based on the CKD-EPI 2020 equation using creatinine, age, and sex. Performed By: #### C HM7 #### [facility] (DEFAULT) [address] [place] [address] Glucose [Mass/Vol] 98 mg/dL Normal 70-99 [facility] Comment on above: Performed By: #### C HM7 #### [facility] (DEFAULT) [address] [place] [address] Osmolality [Osmolality] 295 mosm/kg Normal 278-305 [facility] Comment on above: Performed By: #### C HM7 #### [facility] (DEFAULT) [address] [place] [address] Potassium [Moles/Vol] 3.7 mmol/L Normal 3.5-5.0 [facility] Comment on above: Performed By: #### C HM7 #### [facility] (DEFAULT) [address] [place] [address] Sodium [Moles/Vol] 141 mmol/L Normal 135-145 [facility] Comment on above: Performed By: #### C HM7 #### [facility] (DEFAULT) [address] [place] [address] Urea nitrogen [Mass/Vol] 17 mg/dL Normal 7-25 [facility] Comment on above: Performed By: #### C HM7 #### [facility] (DEFAULT) [address] [place] [address] Urea nitrogen/Creatinine [Mass ratio] 18 mg/mg Normal [facility] Comment on above: Performed By: #### C HM7 #### [facility] (DEFAULT) [address] [place] [address] CBC,PLATELETSon 09-03-2023 Erythrocyte distribution width (RBC) [Ratio] 14.2 % 10.9 - 14.3 % [facility] Hematocrit (Bld) [Volume fraction] 46.8 % 39.6 - 48.8 % [facility] Hemoglobin (Bld) [Mass/Vol] 14.9 g/dL 13.4 - 16.8 g/dL [facility] Interpretation and review of laboratory results Abnormal [facility] MCH (RBC) [Entitic mass] 30.3 pg 26.1 - 33.3 pg [facility] MCHC (RBC) [Mass/Vol] 31.8 g/dL Low 31.9 - 36.5 g/dL [facility] MCV (RBC) [Entitic vol] 95.3 fL High 79.0 - 94.5 fL [facility] Platelet mean volume (Bld) [Entitic vol] 12.0 fL 8.7 - 12.3 fL [facility] Platelets (Bld) [#/Vol] 137 10*3/uL Low 146 - 337 K/uL [facility] RBC (Bld) [#/Vol] 4.91 10*6/uL [facility] WBC (Bld) [#/Vol] 10.04 10*3/uL 3.73 - 10 .10 K/uL [facility] Hematocrit (Bld) [Volume fraction] 46.8 % Normal 39.6-48.8 [facility] Comment on above: Performed By: #### H EMO #### [facility] (DEFAULT) [address] [address] Hemoglobin (Bld) [Mass/Vol] 14.9 g/dL Normal 13.4-16.8 [facility] Comment on above: Performed By: #### H EMO #### [facility] (DEFAULT) [address] [address] MCV (RBC) [Entitic vol] 95.3 fL High 79.0-94.5 [facility] Comment on above: Performed By: #### H EMOGC #### [facility] (DEFAULT) [address] [place] [address] Mean Cell Hgb 30.3 pg Normal 26.1-33.3 [facility] Comment on above: Performed By: #### H EMOGC #### [facility] (DEFAULT) [address] [address] Mean Cell Hgb Conc 31.8 g/dL Low 31.9-36.5 [facility] Comment on above: Performed By: #### H EMOGC #### [facility] (DEFAULT) [address] [place] [address] Platelet mean volume (Bld) [Entitic vol] 12.0 fL Normal 8.7-12.3 [facility] Comment on above: Performed By: #### H EMO #### [facility] (DEFAULT) [address] [place] [address] Platelets (Bld) [#/Vol] 137 10*3/uL Low 146-337 [facility] Comment on above: Performed By: #### H EMO #### [facility] (DEFAULT) [address] [place] [address] RBC (Bld) [#/Vol] 4.91 10*6/uL Normal 4.38-5.83 [facility] Comment on above: Performed By: #### H EMO #### [facility] (DEFAULT) [address] [place] [address] RBC Distribution 14.2 % Normal 10.9-14.3 [facility] Comment on above: Performed By: #### H EMO #### [facility] (DEFAULT) [address] [place] [address] WBC (Bld) [#/Vol] 10.04 10*3/uL Normal 3.73-10.10 [facility] Comment on above: Performed By: #### H EMO #### [facility] (DEFAULT) [address] [place] [address] CHEM 7 (LYTES,BUN,CREA,GLUC) on 09-03-2023 Anion gap [Moles/Vol] 13 mmol/L 7 - 17 mmol/L [facility] Chloride [Moles/Vol] 104 mmol/L 98 - 10 8 mmol/L [facility] CO2 [Moles/Vol] 28 mmol/L 21 - 31 mmol/L [facility] Creatinine [Mass/Vol] 0.89 mg/dL 0.70 - 1.30 mg/dL [facility] eGFR, CKD-EPI, Male - PINF [facility] Comment on above: Reported eGFR is bas ed on the CKD-EPI 2021 equation using creatinine, age, and sex. Glucose [Mass/Vol] 134 mg/dL High 70 - 99 mg/dL [facility] Interpretation and review of laboratory results Abnormal [facility] Osmolality Calc [Osmolality] 298 [facility] Potassium [Moles/Vol] 4.7 mmol/L 3.5 - 5.0 mmol/L [facility] Sodium [Moles/Vol] 140 mmol/L 135 - 145 mmol/L [facility] Urea nitrogen [Mass/Vol] 18 mg/dL 7 - 25 mg/dL [facility] Urea nitrogen/Creatinine [Mass ratio] 20 mg/mg [facility] Anion gap [Moles/Vol] 13 mmol/L Normal 7-17 [facility] Comment on above: Performed By: #### C HM7 #### [facility] (DEFAULT) [address] [place] [address] Chloride [Moles/Vol] 104 mmol/L Normal 98-108 [facility] Comment on above: Performed By: #### C HM7 #### [facility] (DEFAULT) [address] [place] [address] CO2 [Moles/Vol] 28 mmol/L Normal 21-31 [facility] Comment on above: Performed By: #### C HM7 #### [facility] (DEFAULT) [address] [place] [address] Creatinine [Mass/Vol] 0.89 mg/dL Normal 0.70-1.30 [facility] Comment on above: Performed By: #### C HM7 #### [facility] (DEFAULT) [address] [place] [address] eGFR, CKD-EPI, Male > Normal >=60 [facility] Comment on above: Result Comment: Repo rted eGFR is based on the CKD-EPI 2020 equation using creatinine, age, and sex. Performed By: #### C HM7 #### [facility] (DEFAULT) [address] [place] [address] Glucose [Mass/Vol] 134 mg/dL High 70-99 [facility] Comment on above: Performed By: #### C HM7 #### [facility] (DEFAULT) [address] [place] [address] Osmolality [Osmolality] 298 mosm/kg Normal 278-305 [facility] Comment on above: Performed By: #### C HM7 #### [facility] (DEFAULT) [address] [place] [address] Potassium [Moles/Vol] 4.7 mmol/L Normal 3.5-5.0 [facility] Comment on above: Performed By: #### C HM7 #### [facility] (DEFAULT) [address] [place] [address] Sodium [Moles/Vol] 140 mmol/L Normal 135-145 [facility] Comment on above: Performed By: #### C HM7 #### [facility] (DEFAULT) [address] [place] [address] Urea nitrogen [Mass/Vol] 18 mg/dL Normal 7-25 [facility] Comment on above: Performed By: #### C HM7 #### [facility] (DEFAULT) [address] [place] [address] Urea nitrogen/Creatinine [Mass ratio] 20 mg/mg Normal [facility] Comment on above: Performed By: #### C HM7 #### [facility] (DEFAULT) [address] [place] [address] CARDIAC RHYTHM (SCANNED)on 0 09-02-2023 [facility] Portable XR Chest Viewson IMPRESSION: New [...] placement of properly positioned tracheostomy tube. [facility] Radiology Study observation (narrative) [facility] Portable XR Chest ViewsOrder ed By: Arlen Eastman on 09-02-2023 [facility] Work Phone: XR CHEST 1 VIEW [...] placement of properly positioned tracheostomy tube. Normal [facility] Basophil percentageOrdered B y: Brenda Coker on 06-25-2023 Chloride [Moles/Vol] 105 mmol/L 98-107 [facility] Glucose [Mass/Vol] 118 mg/dL 74-106 [facility] Comment on above: Fasting Glucose resu lt from 100 to 125 mg/dL suggests IMPAIRED HOMEOSTASIS per A.D.A. criteria. Potassium [Moles/Vol] 3.9 mmol/L 3.5-5.1 [facility] Sodium [Moles/Vol] 138 mmol/L 136-145 [facility] Laboratory - Chemistry and C hemistry - challengeOrdered By: Brenda Coker on 06-25-2023 CO2 [Moles/Vol] 29.0 mmol/L 21.0-32.0 [facility] Urea nitrogen/Creatinine [Mass ratio] 13.1 mg/mg 10-20 [facility] No Panel InformationOrdered By: Brenda Coker on 06-25-2023 Estimated GFR (MDRD) Amer 71 mL/min >60 [facility] Comment on above: GFR Calc Estimated GFR (MDRD) Non-Af Amer 59 mL/min >60 [facility] Comment on above: Non- GFR Calc Serum or plasma calcium leona urement (mass/volume)Ordered By: Brenda Coker on 06-25-2023 Calcium [Mass/Vol] 9.0 mg/dL 8.5-10.1 [facility] Serum or plasma creatinine m easurement (mass/volume)Ordered By: Brenda Coker on 06-25-2023 Creatinine [Mass/Vol] 1.30 mg/dL 0.70-1.30 [facility] Comment on above: The validity of the calculated GFR & GFRAA in patients over 70 years has not been determined. Clinical correlation is essential. Serum or plasma urea nitroge n measurement (mass/volume)Ordered By: Brenda Coker on 06-25-2023 Urea nitrogen [Mass/Vol] 17 mg/dL 7-18 [facility] Thin prep Papanicolaou smear with manual screeningOrdered By: Brenda Coker on 06-25-2023 Thin prep Papanicolaou smear with manual screening 4 5-15 [facility] Basophil percentageOrdered B y: Gilbert Hoang on 06-18-2023 Bilirubin [Mass/Vol] 1.30 mg/dL 0.20-1.00 [facility] Comment on above: For patients on eltr ombopag therapy, use of Dimension [place] TBIL is not recommended. Chloride [Moles/Vol] 103 mmol/L 98-107 [facility] Glucose [Mass/Vol] 96 mg/dL 74-106 [facility] Potassium [Moles/Vol] 3.3 mmol/L 3.5-5.1 [facility] Protein [Mass/Vol] 7.9 g/dL 6.4-8.2 [facility] Sodium [Moles/Vol] 139 mmol/L 136-145 [facility] Laboratory - Chemistry and C hemistry - challengeOrdered By: Gilbert Hoang on 06-18-2023 Albumin/Globulin [Mass ratio] 1.0 {ratio} 0.9-2.4 [facility] ALP [Catalytic activity/Vol] 84 U/L 45-117 [facility] ALT [Catalytic activity/Vol] U/L 16-61 [facility] CO2 [Moles/Vol] 32.0 mmol/L 21.0-32.0 [facility] Globulin (S) [Mass/Vol] 3.9 g/dL 2.2-4.2 [facility] Urea nitrogen/Creatinine [Mass ratio] 13.5 mg/mg 10-20 [facility] No Panel InformationOrdered By: Gilbert Hoang on 06-18-2023 Estimated GFR (MDRD) Amer 92 mL/min >60 [facility] Comment on above: GFR Calc Estimated GFR (MDRD) Non-Af Amer 76 mL/min >60 [facility] Comment on above: Non- GFR Calc Serum or plasma calcium leona urement (mass/volume)Ordered By: Gilbert Hoang on 06-18-2023 Calcium [Mass/Vol] 9.6 mg/dL 8.5-10.1 [facility] Serum or plasma creatinine m easurement (mass/volume)Ordered By: Gilbert Hoang on 06-18-2023 Creatinine [Mass/Vol] 1.04 mg/dL 0.70-1.30 [facility] Comment on above: The validity of the calculated GFR & GFRAA in patients over 70 years has not been determined. Clinical correlation is essential. Serum or plasma urea nitroge n measurement (mass/volume)Ordered By: Gilbert Hoang on 06-18-2023 Urea nitrogen [Mass/Vol] 14 mg/dL 7-18 [facility] Thin prep Papanicolaou smear with manual screeningOrdered By: Gilbert Hoang on 06-18-2023 Thin prep Papanicolaou smear with manual screening 4.0 g/dL 3.2-5.0 [facility] Thin prep Papanicolaou smear with manual screening 15 U/L 15-37 [facility] Thin prep Papanicolaou smear with manual screening 4 5-15 [facility] Gram stain for investigation of transfusion reactionOrdered By: Karen Lora on 05-17-2023 Microscopic observation Gram stain Nom (Unsp spec) [facility] Microbial respiratory cultur eOrdered By: Karen Lora on 05-17-2023 Bacteria identified Respiratory culture Nom (Unsp spec) [facility] Basophil percentageOrdered B y: Karen Lora on 05-16-2023 Chloride [Moles/Vol] 102 mmol/L 98-107 [facility] Glucose [Mass/Vol] 82 mg/dL 74-106 [facility] Potassium [Moles/Vol] 3.3 mmol/L 3.5-5.1 [facility] Sodium [Moles/Vol] 137 mmol/L 136-145 [facility] Laboratory - Chemistry and C hemistry - challengeOrdered By: Karen Lora on 05-16-2023 CO2 [Moles/Vol] 31.0 mmol/L 21.0-32.0 [facility] Natriuretic peptide B (Bld) [Mass/Vol] 90.8 pg/mL 0-100 [facility] Urea nitrogen/Creatinine [Mass ratio] 9.9 mg/mg 10-20 [facility] No Panel InformationOrdered By: Karen Lora on 05-16-2023 D-Dimer Quantitative (PE/DVT) 0.41 FEU/ug/m 0.27-0.49 [facility] Comment on above: NORMAL D-Dimer level (<0.50) indicates no DVT or PE. Estimated GFR (MDRD) Amer 95 mL/min >60 [facility] Comment on above: GFR Calc Estimated GFR (MDRD) Non-Af Amer 79 mL/min >60 [facility] Comment on above: Non- GFR Calc Serum or plasma calcium leona urement (mass/volume)Ordered By: Karen Lora on 05-16-2023 Calcium [Mass/Vol] 9.0 mg/dL 8.5-10.1 [facility] Serum or plasma creatinine m easurement (mass/volume)Ordered By: Karen Lora on 05-16-2023 Creatinine [Mass/Vol] 1.01 mg/dL 0.70-1.30 [facility] Comment on above: The validity of the calculated GFR & GFRAA in patients over 70 years has not been determined. Clinical correlation is essential. Serum or plasma urea nitroge n measurement (mass/volume)Ordered By: Karen Lora on 05-16-2023 Urea nitrogen [Mass/Vol] 10 mg/dL 09-04 [facility] Thin prep Papanicolaou smear with manual screeningOrdered By: Karen Lora on 05-16-2023 Thin prep Papanicolaou smear with manual screening 4 07-02 [facility] Basophil percentageOrdered B y: II Rj Trammell on 05-06-2023 Basophil percentage 0.72 ng/mL 0.0-4.0 [facility] Comment on above: This test was perfor med using the TPSA assay method [facility] ([place] chemistry system. Values obtained with differentassay methods cannot be used interchangably.When changing PSA assays in the course of monitoring apatient, additional sequential testing should be carriedout to confirm baseline values. Basophil percentageon 2023 Cholesterol [Mass/Vol] 99 mg/dL <200 [facility] Comment on above: <200 mg/dL Desirable 200-240 mg/dL Borderline >240 mg/dL High Risk Triglyceride [Mass/Vol] 90 mg/dL <[address] [facility] Comment on above: The drugs N-Acetylcy steine and Metamizole may falsely depress this assay.Serum Triglycerides Reference Interval Normal <150 mg/dL Borderline high 150 - 199 mg/dL High 200 - 499 mg/dL Very High > or = 500 mg/dL Laboratory - Chemistry and C hemistry - challengeon 03-28-2023 Cholesterol in HDL [Mass/Vol] 50 mg/dL >40 [facility] Comment on above: The drugs N-Acetylcy steine and Metamizole may falsely depress this assay. Reference Range HDL <40 mg/dL Low HDL Cholesterol HDL >or= 60 mg/dL High HDL Cholesterol Cholesterol in LDL [Mass/Vol] 31 mg/dL 0-130 [facility] No Panel Informationon 03-28 VLDL Cholesterol 18 mg/dL 5-40 [facility] ECG 12-LEADon 03-26-2023 ECG 12-LEAD Ventricular Rate 63 Atrial Rate 63 P-R Interval 156 QRS Duration 84 Q-T Interval 402 QTC Calculation(Bazett) 411 P [place] 12 R [place] -4 T [place] 18 QRS Count 11 Q Onset 215 [...] QT has shortened Confirmed by Nevin Rogers ([id number]) on 03/28/2023 4:07:48 PM Normal [facility] Absolute lymphocyte countOrd ered By: Delfin Russell on 03-19-2023 Lymphocytes Auto (Unsp spec) [#/Vol] 1.39 10*3/uL 0.83-4.51 [facility] Automated lymphocyte count a s percentage of total leukocytesOrdered By: Delfin Russell on 03-19-2023 Lymphocytes/100 WBC Auto (Unsp spec) 22.9 % 19-41 [facility] Basophil percentageOrdered B y: Delfin Russell on 03-19-2023 Basophils/100 WBC (Bld) 0.3 % 0-[address] [facility] Chloride [Moles/Vol] 107 mmol/L 98-107 [facility] Eosinophils/100 WBC (Bld) 2.0 % 0-5 [facility] Glucose [Mass/Vol] 91 mg/dL 74-106 [facility] Hemoglobin (Bld) [Mass/Vol] 14.6 g/dL 13.0-16.5 [facility] Monocytes/100 WBC (Bld) 7.6 % 0-[address] [facility] Neutrophils (Bld) [#/Vol] 4.1 10*3/uL 2.0-7.7 [facility] Neutrophils/100 WBC (Bld) 67.0 % 47-70 [facility] Potassium [Moles/Vol] 3.6 mmol/L 3.5-5.1 [facility] Sodium [Moles/Vol] 140 mmol/L 136-145 [facility] WBC (Bld) [#/Vol] 6.1 10*3/uL 4.4-11.0 [facility] Determination of erythrocyte mean corpuscular volume (MCV)Ordered By: Delfin Russell on 03-19-2023 MCV (RBC) [Entitic vol] 96.4 fL 80-[address] [facility] Erythrocyte distribution wid th ratioOrdered By: Delfin Russell on 03-19-2023 Erythrocyte distribution width (RBC) [Ratio] 13.5 % 11.6-14.6 [facility] Erythrocyte distribution wid th standard deviationOrdered By: Delfin Russell on 03-19-2023 Erythrocyte distribution width (RBC) [Entitic vol] 47.8 fL 35.1-43.9 [facility] Hematocrit Auto (Bld) [Volum e fraction]Ordered By: Delfin Russell on 03-19-2023 Hematocrit (Bld) [Volume fraction] 45.9 % 40-54 [facility] Immature granulocytes/100 WB C Auto (Bld)Ordered By: Delfin Russell on 03-19-2023 Immature granulocytes/100 WBC (Bld) 0.200 % 0.0-0.9 [facility] Comment on above: IG% - Immature Granu locytes (promyelocytes, myelocytes and metamyelocytes) > 1% indicates that a LEFT SHIFT is Present. Laboratory - Chemistry and C hemistry - challengeOrdered By: Delfin Russell on 03-19-2023 CO2 [Moles/Vol] 29.0 mmol/L 21.0-32.0 [facility] Urea nitrogen/Creatinine [Mass ratio] 6.9 mg/mg 10-20 [facility] Laboratory - Hematology and Cell countsOrdered By: Delfin Russell on 03-19-2023 MCH (RBC) [Entitic mass] 30.7 pg 27.0-32.0 [facility] MCHC (RBC) [Mass/Vol] 31.8 g/dL 32-36 [facility] Nucleated RBC/100 WBC (Bld) [Ratio] 0 % 0-5 [facility] Platelets (Bld) [#/Vol] 146 10*3/uL 150-450 [facility] No Panel InformationOrdered By: Delfin Russell on 03-19-2023 Estimated Creatinine Clearance Calc 85.51 ml/min [facility] Estimated GFR (MDRD) Amer 95 mL/min >60 [facility] Comment on above: GFR Calc Estimated GFR (MDRD) Non-Af Amer 79 mL/min >60 [facility] Comment on above: Non- GFR Calc Platelet mean volume Jose Daniel-Ec ker (Bld) [Entitic vol]Ordered By: Delfin Russell on 03-19-2023 Platelet mean volume (Bld) [Entitic vol] 12.1 fL 6.2-12.0 [facility] RBC Auto (Bld) [#/Vol]Ordere d By: Delfin Russell on 03-19-2023 RBC (Bld) [#/Vol] 4.76 10*6/uL 4.6-6.2 [facility] Serum or plasma calcium leona urement (mass/volume)Ordered By: Delfin Russell on 03-19-2023 Calcium [Mass/Vol] 9.2 mg/dL 8.5-10.1 [facility] Serum or plasma creatinine m easurement (mass/volume)Ordered By: Delfin Russell on 03-19-2023 Creatinine [Mass/Vol] 1.01 mg/dL 0.70-1.30 [facility] Comment on above: The validity of the calculated GFR & GFRAA in patients over 70 years has not been determined. Clinical correlation is essential. Serum or plasma urea nitroge n measurement (mass/volume)Ordered By: Delfin Russell on 03-19-2023 Urea nitrogen [Mass/Vol] 7 mg/dL 7-18 [facility] Thin prep Papanicolaou smear with manual screeningOrdered By: Delfin Russell on 03-19-2023 Thin prep Papanicolaou smear with manual screening 4 5-15 [facility] Serum or plasma thyroid stim ulating hormone (TSH) measurement (units/volume)Ordered By: Porfirio Miller on 03-18-2023 TSH Qn 0.35 uIU/mL 0.358-3.74 [facility] Laboratory - Microbiology an d Antimicrobial susceptibilityOrdered By: Moses Grady on 03-17-2023 G. lamblia Ag IA.rapid Ql (Stl) [facility] G. lamblia Ag IA.rapid Ql (Stl) [facility] Ova and parasitesOrdered By: Moses Grady on 03-17-2023 Ova and parasites identified LM Nom (Unsp spec) [facility] Ova and parasites identified LM Nom (Unsp spec) [facility] Stool enteric pathogen panel by probe and target amplification methodOrdered By: Moses Grady on 03-17-2023 Gastrointestinal pathogens panel YOLY+probe (Stl) [facility] Stool gastrointestinal hemog lobin detection by immunologic methodOrdered By: Delfin Russell on 03-17-2023 Lower GI hemoglobin IA Ql (Stl) [facility] Lower GI hemoglobin IA Ql (Stl) [facility] Stool lactoferrin detection by immunoassayOrdered By: Delfin Russell on 03-17-2023 Lactoferrin IA Ql (Stl) [facility] Lactoferrin IA Ql (Stl) [facility] Absolute lymphocyte countOrd ered By: Moses Grady on 03-16-2023 Lymphocytes Auto (Unsp spec) [#/Vol] 1.46 10*3/uL 0.83-4.51 [facility] Automated lymphocyte count a s percentage of total leukocytesOrdered By: Moses Grady on 03-16-2023 Lymphocytes/100 WBC Auto (Unsp spec) 22.0 % 19-41 [facility] Basophil percentageOrdered B y: Moses Grady on 03-16-2023 Basophil percentage 0 SEEN /hpf 0-5 [facility] Lactate [Moles/Vol] 1.1 mmol/L 0.4-2.0 [facility] Basophil percentage 2.5 mg/dL 2.5-4.9 [facility] Basophils/100 WBC (Bld) 0.3 % 0-1 [facility] Bilirubin [Mass/Vol] 0.80 mg/dL 0.20-1.00 [facility] Comment on above: For patients on eltr ombopag therapy, use of Dimension [place] TBIL is not recommended. Chloride [Moles/Vol] 101 mmol/L 98-107 [facility] Eosinophils/100 WBC (Bld) 0.6 % 0-5 [facility] Glucose [Mass/Vol] 140 mg/dL 74-106 [facility] Comment on above: Fasting Glucose resu lt greater than or equal to 126 mg/dL suggests DIABETES MELLITUS per A.D.A. criteria. Hemoglobin (Bld) [Mass/Vol] 14.6 g/dL 13.0-16.5 [facility] Monocytes/100 WBC (Bld) 6.2 % 0-[address] [facility] Neutrophils (Bld) [#/Vol] 4.7 10*3/uL 2.0-7.7 [facility] Neutrophils/100 WBC (Bld) 70.6 % 47-70 [facility] Potassium [Moles/Vol] 3.4 mmol/L 3.5-5.1 [facility] Protein [Mass/Vol] 7.1 g/dL 6.4-8.2 [facility] Sodium [Moles/Vol] 136 mmol/L 136-145 [facility] WBC (Bld) [#/Vol] 6.6 10*3/uL 4.4-11.0 [facility] Bilirubin Test strip Ql (U)O rdered By: Moses Grady on 03-16-2023 Bilirubin Ql (U) Negative Negative [facility] Culture, urineOrdered By: Maurice Russell on 03-16-2023 Bacteria identified Cx Nom (U) Culture exhibits no growth. [facility] Bacteria identified Cx Nom (U) Culture exhibits no growth. [facility] Determination of erythrocyte mean corpuscular volume (MCV)Ordered By: Moses Grady on 03-16-2023 MCV (RBC) [Entitic vol] 92.2 fL 80-[address] [facility] Direct bilirubinOrdered By: Moses Grady on 03-16-2023 Bilirubin.direct [Mass/Vol] 0.29 mg/dL 0.00-0.30 [facility] Erythrocyte distribution wid th ratioOrdered By: Moses Grady on 03-16-2023 Erythrocyte distribution width (RBC) [Ratio] 13.2 % 11.6-14.6 [facility] Erythrocyte distribution wid th standard deviationOrdered By: Moses Grady on 03-16-2023 Erythrocyte distribution width (RBC) [Entitic vol] 44.6 fL 35.1-43.9 [facility] Hematocrit Auto (Bld) [Volum e fraction]Ordered By: Moses Grady on 03-16-2023 Hematocrit (Bld) [Volume fraction] 43.9 % 40-54 [facility] Immature granulocytes/100 WB C Auto (Bld)Ordered By: Moses Grady on 03-16-2023 Immature granulocytes/100 WBC (Bld) 0.300 % 0.0-0.9 [facility] Comment on above: IG% - Immature Granu locytes (promyelocytes, myelocytes and metamyelocytes) > 1% indicates that a LEFT SHIFT is Present. Ketones Test strip Ql (U)Ord ered By: Moses Grady on 03-16-2023 Ketones Ql (U) 5 mg/dl Negative [facility] Laboratory - Chemistry and C hemistry - challengeOrdered By: Moses Grady on 03-16-2023 ALP [Catalytic activity/Vol] 77 U/L 45-117 [facility] ALT [Catalytic activity/Vol] 8 U/L 16-61 [facility] CO2 [Moles/Vol] 32.0 mmol/L 21.0-32.0 [facility] Globulin (S) [Mass/Vol] 3.5 g/dL 2.2-4.[address] [facility] Lipase [Catalytic activity/Vol] 15 U/L 13-75 [facility] Comment on above: Please note:LIPASE r evised reference range effective 22. New Lipase methodology. Expected to produce lower values than the previous assay method. NEW Reference Range: 13 - 75 U/L Magnesium [Mass/Vol] 2.3 mg/dL 1.6-2.6 [facility] Natriuretic peptide B (Bld) [Mass/Vol] 81.7 pg/mL 0-100 [facility] Urea nitrogen/Creatinine [Mass ratio] 10.2 mg/mg 10-20 [facility] Laboratory - Hematology and Cell countsOrdered By: Moses Grady on 03-16-2023 MCH (RBC) [Entitic mass] 30.7 pg 27.0-32.0 [facility] MCHC (RBC) [Mass/Vol] 33.3 g/dL 32-36 [facility] Nucleated RBC/100 WBC (Bld) [Ratio] 0 % 0-5 [facility] Platelets (Bld) [#/Vol] 158 10*3/uL 150-450 [facility] Laboratory - Microbiology an d Antimicrobial susceptibilityOrdered By: Moses Grady on 03-16-2023 Bacteria identified Cx Nom (Bld) No growth in 5 days. [facility] Bacteria identified Cx Nom (Bld) No growth in 5 days. [facility] Mucus LM Ql (Urine sed)Order ed By: Moses Grady on 03-16-2023 Mucus Ql (Urine sed) 1+ /hpf [facility] Nitrite Test strip Ql (U)Ord ered By: Moses Grady on 03-16-2023 Nitrite Ql (U) Negative Negative [facility] No Panel InformationOrdered By: Moses Grady on 03-16-2023 Urine RBC 0 SEEN /hpf 0-5 [facility] Estimated Creatinine Clearance Calc 62.93 ml/min [facility] Estimated GFR (MDRD) Amer 67 mL/min >60 [facility] Comment on above: GFR Calc Estimated GFR (MDRD) Non-Af Amer 56 mL/min >60 [facility] Comment on above: Non- GFR Calc Troponin I High Sensitivity 39 pg/mL 3.0-78.0 [facility] Comment on above: Please Note: New Dayan t Units and Gender Specific Reference Ranges. For more information see Policy Stat Procedure [place] High Sensitivity Troponin (TNIH) and attachments. No Panel InformationOrdered By: Delfin Russell on 03-16-2023 Stool Calprotectin 290 ug/g 0-120 [facility] Comment on above: Concentration Interp retation Follow-Up< 5 - 50 ug/g Normal None>50 -120 ug/g Borderline Re-evaluate in 4-6 weeks >120 ug/g Abnormal Repeat as clinically indicatedPerformed at: - [facility] [address] [id number] Director: Alma Rosa Laura MD, Phone: [phone] Platelet mean volume Jose Dnaiel-Ec ker (Bld) [Entitic vol]Ordered By: Moses Grady on 03-16-2023 Platelet mean volume (Bld) [Entitic vol] 11.5 fL 6.2-12.0 [facility] Protein Test strip Ql (U)Ord ered By: Moses Grady on 03-16-2023 Protein Ql (U) 15 mg/dl Negative [facility] RBC Auto (Bld) [#/Vol]Ordere d By: Moses Grady on 03-16-2023 RBC (Bld) [#/Vol] 4.76 10*6/uL 4.6-6.2 [facility] Serum or plasma calcium leona urement (mass/volume)Ordered By: Moses Grady on 03-16-2023 Calcium [Mass/Vol] 9.2 mg/dL 8.5-10.1 [facility] Serum or plasma creatinine m easurement (mass/volume)Ordered By: Moses Grady on 03-16-2023 Creatinine [Mass/Vol] 1.37 mg/dL 0.70-1.30 [facility] Comment on above: The validity of the calculated GFR & GFRAA in patients over 70 years has not been determined. Clinical correlation is essential. Serum or plasma urea nitroge n measurement (mass/volume)Ordered By: Moses Grady on 03-16-2023 Urea nitrogen [Mass/Vol] 14 mg/dL 7-18 [facility] Squamous epithelial cells de tection in urine sediment by light microscopyOrdered By: Moses Grady on 03-16-2023 Epithelial cells.squamous LM Ql (Urine sed) 0-5 SEEN /hpf 0-5 [facility] Thin prep Papanicolaou smear with manual screeningOrdered By: Moses Grady on 03-16-2023 Thin prep Papanicolaou smear with manual screening 3.6 g/dL 3.2-5.0 [facility] Thin prep Papanicolaou smear with manual screening 13 U/L 15-37 [facility] Thin prep Papanicolaou smear with manual screening 3 5-15 [facility] Urine blood detectionOrdered By: Moses Grady on 03-16-2023 RBC Ql (U) 10 /ul Negative [facility] Urine clarityOrdered By: Zoltan Grady on 03-16-2023 Clarity (U) Clear Clear [facility] Urine color determinationOrd ered By: Moses Grady on 03-16-2023 Color (U) Yellow Yellow [facility] Urine glucose detectionOrder ed By: Moses Grady on 03-16-2023 Glucose Ql (U) Normal mg/dl Normal [facility] Urine leukocyte esterase det ection by dipstickOrdered By: Moses Grady on 03-16-2023 Leukocyte esterase Test strip Ql (U) 25 /ul Negative [facility] Urine pHOrdered By: Moses ying on 03-16-2023 pH (U) 6.0 [pH] 5.0 - 8.0 [facility] Urine sediment bacteria coun t by microscopy (number/high power field)Ordered By: Moses Grady on 03-16-2023 Bacteria LM.HPF (Urine sed) [#/Area] 0 /[HPF] None Seen [facility] Urine specific gravity measu rementOrdered By: Moses Grady on 03-16-2023 Specific gravity (U) [Rel density] 1.015 1.002-1.030 [facility] Urine urobilinogen measureme ntOrdered By: Moses Grady on 03-16-2023 Urobilinogen Ql (U) Normal mg/dl Normal [facility] Absolute lymphocyte countOrd ered By: Karen Lora on 12-14-2022 Lymphocytes Auto (Unsp spec) [#/Vol] 1.21 10*3/uL 0.83-4.51 [facility] Alternaria alternata IgE ser umOrdered By: Karen Lora on 12-14-2022 A. alternata IgE Qn (S) <0.10 kU/L Class 0 [facility] Atypical perinuclear antineu trophil cytoplasmic antibodies measurementOrdered By: Karen Lora on 12-14-2022 Neutrophil cytoplasmic Ab.perinuclear.atypical IF (S) [Titer] <1:20 titer Neg:<1:20 [facility] Comment on above: The atypical pANCA p attern has been observed in asignificant percentage of patients with ulcerative colitis,primary sclerosing cholangitis and autoimmune hepatitis. Basophil percentageOrdered B y: Karen Lora on 12-14-2022 Basophils/100 WBC (Bld) 0.3 % 0-[address] [facility] Eosinophils/100 WBC (Bld) 1.7 % 0-5 [facility] Neutrophils (Bld) [#/Vol] 4.2 10*3/uL 2.0-7.7 [facility] Neutrophils/100 WBC (Bld) 69.9 % 47-70 [facility] WBC (Bld) [#/Vol] 6.1 10*3/uL 4.4-11.0 [facility] Blood erythrocytes count (nu mber/volume)Ordered By: Karen Lora on 12-14-2022 RBC (Bld) [#/Vol] 4.73 10*6/uL 4.6-6.2 [facility] Blood hemoglobin measurement (mass/volume)Ordered By: Karen Lora on 12-14-2022 Hemoglobin (Bld) [Mass/Vol] 14.4 g/dL 13.0-16.5 [facility] Blood lymphocytes/100 leukoc ytesOrdered By: Karen Lora on 12-14-2022 Lymphocytes/100 WBC (Bld) 20.0 % 19-41 [facility] Blood monocytes/100 leukocyt esOrdered By: Karen Lora on 12-14-2022 Monocytes/100 WBC (Bld) 7.8 % 0-10 [facility] Blood platelet mean volumeOr dered By: Karen Lora on 12-14-2022 Platelet mean volume (Bld) [Entitic vol] 11.0 fL 6.2-12.0 [facility] Determination of erythrocyte mean corpuscular volume (MCV)Ordered By: Karen Lora on 12-14-2022 MCV (RBC) [Entitic vol] 94.7 fL 80-94 [facility] Hematocrit Auto (Bld) [Volum e fraction]Ordered By: Karen Lora on 12-14-2022 Hematocrit (Bld) [Volume fraction] 44.8 % 40-54 [facility] Laboratory - Hematology and Cell countsOrdered By: Karen Lora on 12-14-2022 Erythrocyte distribution width (RBC) [Entitic vol] 47.6 fL 35.1-43.9 [facility] Erythrocyte distribution width (RBC) [Ratio] 13.7 % 11.6-14.6 [facility] Immature granulocytes/100 WBC (Bld) 0.300 % 0.0-0.9 [facility] Comment on above: IG% - Immature Granu locytes (promyelocytes, myelocytes and metamyelocytes) > 1% indicates that a LEFT SHIFT is Present. MCH (RBC) [Entitic mass] 30.4 pg 27.0-32.0 [facility] Nucleated RBC/100 WBC (Bld) [Ratio] 0 % 0-5 [facility] Laboratory - Miscellaneous t estsOrdered By: Karen Lora on 12-14-2022 Service comment (Unsp spec) [Interp] Comment . [facility] Comment on above: Levels of Specific [...] 12-14-2022 MCHC (RBC) [Mass/Vol] 32.1 g/dL 32-36 [facility] No Panel InformationOrdered By: Karne Lora on 12-14-2022 Common Ragweed (Short) Allergen <0.10 kU/L Class 0 [facility] Portuguese Plantain Allergen (RAST) <0.10 kU/L [facility] 0 [facility] Immunoglobulin E 176 IU/mL 6-495 [facility] Comment on above: Performed at: [facility] [address] [id number] Director: Noe Mejias PhD, Phone: [phone] at: [facility] [id number] Director: Alma Rosa Laura MD, Phone: [phone] Mouse Urine Allergen IgE Antibody <0.10 kU/L Class 0 [facility] Comment on above: Performed at: [address] [id number] Director: Alma Rosa Laura MD, Phone: [phone] Platelets bldOrdered By: Addison Lora on 12-14-2022 Platelets (Bld) [#/Vol] 164 10*3/uL 150-450 [facility] Serum Aspergillus flavus ant ibody detection by immunodiffusionOrdered By: Karen Lora on 12-14-2022 A. flavus Ab Immune diff Ql (S) Negative Neg:<1:1 [facility] Serum Aspergillus fumigatus antibody detection by immunodiffusionOrdered By: Karen Lora on 12-14-2022 A. fumigatus Ab Immune diff Ql (S) Negative Neg:<1:1 [facility] Serum Aspergillus niger anti body detection by immunodiffusionOrdered By: Karen Lora on 12-14-2022 A. niger Ab Immune diff Ql (S) Negative Neg:<1:1 [facility] Serum Bermuda grass IgE anti body assay (units/volume)Ordered By: Karen Lora on 12-14-2022 Bermuda grass IgE Qn (S) <0.10 kU/L Class 0 [facility] Serum Dermatophagoides farin ae specific IgE antibody assay (units/volume)Ordered By: Karen Lora on 12-14-2022 English house dust mite IgE Qn (S) <0.10 kU/L Class 0 [facility] Serum house dust mi te IgE antibody assay (units/volume)Ordered By: Karen Lora on 12-14-2022 house dust mite IgE Qn (S) <0.10 kU/L Class 0 [facility] Serum [place] blue grass Ig E antibody assay (units/volume)Ordered By: Karen Lora on 12-14-2022 [place] blue grass IgE Qn (S) <0.10 kU/L Class 0 [facility] Serum cat dander IgE antibod y assay (units/volume)Ordered By: Karen Lora on 12-14-2022 Cat dander IgE Qn (S) <0.10 kU/L Class 0 [facility] Serum classic neutrophil cyt oplasmic antibody assay (units/volume)Ordered By: Karen Lora on 12-14-2022 Neutrophil cytoplasmic Ab.classic Qn (S) <1:20 titer Neg:<1:20 [facility] Serum dog epithelium IgE ant ibody assay (units/volume)Ordered By: Karen Lora on 12-14-2022 Dog epithelium IgE Qn (S) <0.10 kU/L Class 0 [facility] Serum perinuclear neutrophil cytoplasmic antibody titer by immunofluorescenceOrdered By: Karen Lora on 12-14-2022 Neutrophil cytoplasmic Ab.perinuclear IF (S) [Titer] <1:20 titer Neg:<1:20 [facility] Comment on above: The presence of posi tive fluorescence exhibiting P-ANCA orC-ANCA patterns alone is not specific for the diagnosis ofWegener's Granulomatosis (WG) or microscopic polyangiitis.Decisions about treatment should not be based solely onANCA IFA results. The [employer] ANCA Group Consensusrecommends follow up testing of positive sera with both LA-3 and MPO-ANCA enzyme immunoassays. As many as 5% serumsamples are positive only by EIA. Ref. AM J Clin [id number];111:507-513. Serum white elm IgE antibody assay (units/volume)Ordered By: Karen Lora on 12-14-2022 White [place]m IgE Qn (S) <0.10 kU/L Class 0 [facility] Serum white oak IgE antibody assay (units/volume)Ordered By: Karen Lora on 12-14-2022 [place] IgE Qn (S) <0.10 kU/L Class 0 [facility] Basophil percentageOrdered B y: Christian Hernandez on 10-09-2022 Creatinine [Mass/Vol] 1.7 mg/dL 0.70-1.30 [facility] Laboratory - Chemistry and C hemistry - challengeOrdered By: Christian Hernandez on 10-09-2022 GFR/1.73 sq M.predicted among non-blacks MDRD (S/P/Bld) [Vol rate/Area] 44.0000 mL/min/{1.73_m2} >60 [facility] Blood Pressure Cuff Sizeon 0 09-25-2022 Fall risk assessment a) No falls within the last year [facility] [address] [place] Work Phone: Tobacco use status CPHS b) No M P-[facility] [place] [address] [place] Work Phone: Blood Pressure Cuff Size Adult [facility]-L[facility] ospinaStroud [address] [place] Work Phone: Office Visit (Cardiology)on [...] on 06-19-2022 Bilirubin [Mass/Vol] 0.50 mg/dL 0.20-1.00 [facility] Comment on above: For patients on eltr ombopag therapy, use of Dimension [place] TBIL is not recommended. Chloride [Moles/Vol] 107 mmol/L 98-107 [facility] Glucose [Mass/Vol] 119 mg/dL 74-106 [facility] Comment on above: Fasting Glucose resu lt from 100 to 125 mg/dL suggests IMPAIRED HOMEOSTASIS per A.D.A. criteria. Potassium [Moles/Vol] 4.1 mmol/L 3.5-5.1 [facility] Protein [Mass/Vol] 7.7 g/dL 6.4-8.2 [facility] Sodium [Moles/Vol] 140 mmol/L 136-145 [facility] WBC (Bld) [#/Vol] 8.1 10*3/uL 4.4-11.0 [facility] Blood erythrocytes count (nu mber/volume)Ordered By: Dr. Hernandez on 06-19-2022 RBC (Bld) [#/Vol] 4.88 10*6/uL 4.6-6.2 [facility] Blood hemoglobin measurement (mass/volume)Ordered By: Dr. Hernandez on 06-19-2022 Hemoglobin (Bld) [Mass/Vol] 14.9 g/dL 13.0-16.5 [facility] Blood platelet mean volumeOr dered By: Dr. Hernandez on 06-19-2022 Platelet mean volume (Bld) [Entitic vol] 11.7 fL 6.2-12.0 [facility] Determination of erythrocyte mean corpuscular volume (MCV)Ordered By: Dr. Hernandez on 06-19-2022 MCV (RBC) [Entitic vol] 94.9 fL 80-[address] [facility] Hematocrit Auto (Bld) [Volum e fraction]Ordered By: Dr. Hernandez on 06-19-2022 Hematocrit (Bld) [Volume fraction] 46.3 % 40-54 [facility] Laboratory - Chemistry and C hemistry - challengeOrdered By: Dr. Hernandez on 06-19-2022 ALP [Catalytic activity/Vol] 97 U/L 45-117 [facility] ALT [Catalytic activity/Vol] 27 U/L 16-61 [facility] CO2 [Moles/Vol] 31.0 mmol/L 21.0-32.0 [facility] Free T4 [Mass/Vol] 1.23 ng/dL 0.76-1.46 [facility] Globulin (S) [Mass/Vol] 3.9 g/dL 2.2-4.[address] [facility] Magnesium [Mass/Vol] 2.5 mg/dL 1.6-2.6 [facility] Urea nitrogen/Creatinine [Mass ratio] 16.3 mg/mg 10-20 [facility] Laboratory - Hematology and Cell countsOrdered By: Dr. Hernandez on 06-19-2022 Erythrocyte distribution width (RBC) [Entitic vol] 45.1 fL 35.1-43.9 [facility] Erythrocyte distribution width (RBC) [Ratio] 13.0 % 11.6-14.6 [facility] MCH (RBC) [Entitic mass] 30.5 pg 27.0-32.0 [facility] MCHC Auto (RBC) [Mass/Vol]Or dered By: Dr. Hernandez on 06-19-2022 MCHC (RBC) [Mass/Vol] 32.2 g/dL 32-36 [facility] No Panel InformationOrdered By: Dr. Hernandez on 06-19-2022 Estimated GFR (MDRD) Amer 72 mL/min >60 [facility] Comment on above: GFR Calc Estimated GFR (MDRD) Non-Af Amer 60 mL/min >60 [facility] Comment on above: Non- GFR Calc Free Triiodothyronine (T3) pg/dL 2.8 pg/mL 2.18-3.98 [facility] Thyroid Stimulating Hormone (TSH) 0.69 uIU/mL 0.358-3.74 [facility] Whole Blood Vitamin B1 Level 186.2 nmol/L 66.5-200.0 [facility] Comment on above: Performed at: [address] [id number] Director: Alma Rosa Laura MD, Phone: [phone] Platelets bldOrdered By: Dr. Hernandez on 06-19-2022 Platelets (Bld) [#/Vol] 185 10*3/uL 150-450 [facility] Serum or plasma albumin leona urement (mass/volume)Ordered By: Dr. Hernandez on 06-19-2022 Albumin [Mass/Vol] 3.8 g/dL 3.2-5.0 [facility] Serum or plasma albumin/glob ulin mass ratioOrdered By: Dr. Hernandez on 06-19-2022 Albumin/Globulin [Mass ratio] 1.0 {ratio} 0.9-2.4 [facility] Serum or plasma calcium leona urement (mass/volume)Ordered By: Dr. Hernandez on 06-19-2022 Calcium [Mass/Vol] 9.2 mg/dL 8.5-10.1 [facility] Serum or plasma creatinine m easurement (mass/volume)Ordered By: Dr. Hernandez on 06-19-2022 Creatinine [Mass/Vol] 1.29 mg/dL 0.70-1.30 [facility] Comment on above: The validity of the calculated GFR & GFRAA in patients over 70 years has not been determined. Clinical correlation is essential. Serum or plasma folate measu rement (mass/volume)Ordered By: Dr. Hernandez on 06-19-2022 Folate [Mass/Vol] 7.60 ng/mL 3.1-55.4 [facility] Serum or plasma urea nitroge n measurement (mass/volume)Ordered By: Dr. Hernandez on 06-19-2022 Urea nitrogen [Mass/Vol] 21 mg/dL 7-18 [facility] Thin prep Papanicolaou smear with manual screeningOrdered By: Dr. Hernandez on 06-19-2022 Thin prep Papanicolaou smear with manual screening 19 U/L 15-37 [facility] Thin prep Papanicolaou smear with manual screening 2 5-15 [facility] 24 hour urine alpha 2 globul in/total protein ratio by electrophoresis (mass fraction)Ordered By: Dr. Lobo on 05-02-2022 Alpha 2 globulin Elph (24H U) [Mass fraction] 11.1 % . [facility] 24 hour urine beta globulin/ total protein ratio by electrophoresis (mass fraction)Ordered By: Dr. Lobo on 05-02-2022 Beta globulin Elph (24H U) [Mass fraction] 34.1 % . [facility] 24 hour urine gamma globulin /total protein ratio by electrophoresis (mass fraction)Ordered By: Dr. Lobo on 05-02-2022 Gamma globulin Elph (24H U) [Mass fraction] 28.7 % . [facility] Basophil percentageOrdered B y: Dr. Lobo on 05-02-2022 Basophil percentage 3 ug/L 0-9 [facility] Comment on above: Detection Limit = 1 Basophil percentage Not [facility]able [facility] Chloride [Moles/Vol] 102 mmol/L 98-107 [facility] Glucose [Mass/Vol] 88 mg/dL 74-106 [facility] Potassium [Moles/Vol] 4.3 mmol/L 3.5-5.1 [facility] Sodium [Moles/Vol] 139 mmol/L 136-145 [facility] Blood cadmium measurement (m ass/volume)Ordered By: Dr. Lobo on 05-02-2022 Cadmium (Bld) [Mass/Vol] 1.0 ug/L 0.0-1.2 [facility] Comment on above: Environmental Exposu re: Nonsmokers 0.3 - 1.2 Smokers 0.6 - 3.9 Occupational Exposure: OSHA Cadmium Std 5.0 MICK 5.0 Detection Limit = 0.5 Blood mercury measurement (m ass/volume)Ordered By: Dr. Lobo on 05-02-2022 Mercury (Bld) [Mass/Vol] < 1.0 ug/L 0.0-14.9 [facility] Comment on above: Environmental Exposu re: <15.0 Occupational Exposure: MICK - Inorganic Mercury: 15.0 Detection Limit = 1.0 Laboratory - Chemistry and C hemistry - challengeOrdered By: Dr. Lobo on 05-02-2022 CK [Catalytic activity/Vol] 131 U/L 39-308 [facility] CO2 [Moles/Vol] 30.0 mmol/L 21.0-32.0 [facility] Cobalamin (Vitamin B12) [Mass/Vol] 391 pg/mL 211-911 [facility] Urea nitrogen/Creatinine [Mass ratio] 14.1 mg/mg 10-20 [facility] No Panel InformationOrdered By: Dr. Lobo on 05-02-2022 Anti-Nuclear Antibody Screen Negative Negative [facility] Comment on above: Performed at: [facility] [address] [id number] Director: Alma Rosa Laura MD, Phone: [phone] at: [address] [id number] Director: Noe Mejias PhD, Phone: [phone] [employer] B Antibody Not Reportable [facility] Estimated GFR (MDRD) Amer 68 mL/min >60 [facility] Comment on above: GFR Calc Estimated GFR (MDRD) Non-Af Amer 57 mL/min >60 [facility] Comment on above: Non- GFR Calc Lead 1.2 ug/dL 0.0-3.4 [facility] Comment on above: Testing performed by Inductively coupled plasma/MassSpectrometry. Environmental Exposure: WHO Recommendation <20.0 Occupational Exposure: OSHA Lead Std 40.0 MICK 30.0 Detection Limit = 1.0This test was developed and its performancecharacteristics determined by [facility]. It has not beencleared or approved by the Food and Drug Administration. Parathyroid Hormone (Intact) 59.8 pg/mL 18.4-80.1 [facility] COBOL MAINFRAME DEVELOPER Antibody Not Reportable [facility] Urine Immunofixation PEP Note Comment . [facility] Comment on above: Protein electrophore sis scan will follow via computer,mail, or job printer apprentice delivery.Performed at: [facility] [employer] [id number] Director: Noe Mejias PhD, Phone: [phone] Serum DNA double strand anti body assay (units/volume)Ordered By: Dr. Lobo on 05-02-2022 DNA double strand Ab Qn (S) Not Reportable [facility] Serum Medina-1 antibody assay (u nits/volume)Ordered By: Dr. Lobo on 05-02-2022 Medina-1 extractable nuclear Ab Qn (S) Not Reportable [facility] Serum Scl-70 extractable nuc lear antibody assay (units/volume)Ordered By: Dr. Lobo on 05-02-2022 SCL-70 extractable nuclear Ab Qn (S) Not Reportable [facility] Serum Mojica extractable nucl ear antibody detectionOrdered By: Dr. Lobo on 05-02-2022 Mojica extractable nuclear Ab Ql (S) Not Reportable [facility] Serum or plasma calcium leona urement (mass/volume)Ordered By: Dr. Lobo on 05-02-2022 Calcium [Mass/Vol] 9.5 mg/dL 8.5-10.1 [facility] Serum or plasma creatinine m easurement (mass/volume)Ordered By: Dr. Lobo on 05-02-2022 Creatinine [Mass/Vol] 1.35 mg/dL 0.70-1.30 [facility] Comment on above: The validity of the calculated GFR & GFRAA in patients over 70 years has not been determined. Clinical correlation is essential. Serum or plasma urea nitroge n measurement (mass/volume)Ordered By: Dr. Lobo on 05-02-2022 Urea nitrogen [Mass/Vol] 19 mg/dL 7-18 [facility] Thin prep Papanicolaou smear with manual screeningOrdered By: Dr. Lobo on 05-02-2022 Thin prep Papanicolaou smear with manual screening 7 5-15 [facility] Urine albumin/total protein mass ratio by electrophoresisOrdered By: Dr. Lobo on 05-02-2022 Albumin Elph (U) [Mass fraction] 23.3 % . [facility] Urine alpha 1 globulin/total protein ratio by electrophoresis (mass fraction)Ordered By: Dr. Lobo on 05-02-2022 Alpha 1 globulin Elph (U) [Mass fraction] 2.8 % . [facility] Urine monoclonal protein/tot al protein mass ratio by electrophoresisOrdered By: Dr. Lobo on 05-02-2022 Protein.monoclonal Elph (U) [Mass fraction] See comment [facility] Comment on above: NOT OBSERVED Urine protein measurement (m ass/volume)Ordered By: Dr. Lobo on 05-02-2022 Protein (U) [Mass/Vol] 13.4 mg/dL Not Estab. [facility] Basophil percentageon 2022 Chloride [Moles/Vol] 107 mmol/L 98-107 [facility] Glucose [Mass/Vol] 110 mg/dL 74-106 [facility] Comment on above: Fasting Glucose resu lt from 100 to 125 mg/dL suggests IMPAIRED HOMEOSTASIS per A.D.A. criteria. Potassium [Moles/Vol] 4.4 mmol/L 3.5-5.1 [facility] Sodium [Moles/Vol] 142 mmol/L 136-145 [facility] Laboratory - Chemistry and C hemistry - challengeon 04-11-2022 CO2 [Moles/Vol] 29.0 mmol/L 21.0-32.0 [facility] Natriuretic peptide B (Bld) [Mass/Vol] 62.4 pg/mL 0-100 [facility] Urea nitrogen/Creatinine [Mass ratio] 16.6 mg/mg 10-20 [facility] No Panel Informationon 04-11 Estimated GFR (MDRD) Amer 60 mL/min >60 [facility] Comment on above: GFR Calc Estimated GFR (MDRD) Non-Af Amer 50 mL/min >60 [facility] Comment on above: Non- GFR Calc Serum or plasma calcium leona urement (mass/volume)on 04-11-2022 Calcium [Mass/Vol] 9.5 mg/dL 8.5-10.1 [facility] Serum or plasma creatinine m easurement (mass/volume)on 04-11-2022 Creatinine [Mass/Vol] 1.51 mg/dL 0.70-1.30 [facility] Comment on above: The validity of the calculated GFR & GFRAA in patients over 70 years has not been determined. Clinical correlation is essential. Serum or plasma urea nitroge n measurement (mass/volume)on 04-11-2022 Urea nitrogen [Mass/Vol] 25 mg/dL 7-18 [facility] Thin prep Papanicolaou smear with manual screeningon 04-11-2022 Thin prep Papanicolaou smear with manual screening 6 5-15 [facility] IO Ultrasound, measurement p ost-void resid urine and/or bl cap; no imagon 03-28-2022 IO Ultrasound, measurement post-void resid urine and/or bl cap; no imag 238 mL [facility]-Urology- [employer] Work Phone: Office Visit (Urology)on Follow-up visit [...] with a 3.5 x 26 mm Resolute Alpine stent History of Knee arthroscopy History of [...] 03/01/2021 3:11:25 (more content not included)... Normal [employer] Tobacco Screening.on 023 Adult depression screening assessment No [employer]-Urology- [employer] Work Phone: Fall risk assessment a) No falls within the last year [facility] Work Phone: Tobacco use status CPHS b) No M P-Urology- [employer] Work Phone: Blood Pressure Cuff Sizeon 0 [...] exertion Brain Natriuretic Peptide BNP; Status:Active; Requested for:[id number]; CAD (coronary artery disease), Hypertension, SOB (shortness of breath) on exertion Basic Metabolic Panel; Status:Active; Requested for:[id number]; CAD (coronary artery disease), SOB (shortness of [...] of Thyr (more content not included)... Normal [employer] No Panel InformationOrdered By: II Dr. Rj Trammell on 02-22-2022 Prostate Specific Antigen Total 0.42 ng/mL 0.0-4.0 [facility] Comment on above: This test was perfor med using the TPSA assay method for theFeedgen system. Values obtained with differentassay methods cannot [...] feel free to call my office at [phone] and please allow 1-2 business days for a response. If you have any scheduling needs feel free to call [phone] Ernestina Hope Pulmonary and Critical Care Fellow [id number] [place] [address] Provider Impressions 61 year old male with [...] This note was created using speech recognition microsoft developer software. Despite proofreading, several typographical errors might be present that might affect the meaning of the content. Ernestina Hope Pulmonary and Critical Care PGY-5 Chief Complaint Patient reports for Follow up. Patient states that Simbacort is somewhat helping. Former smoker since april- no assistance. Received Covid shot and 1 booster, No Flu shot History of Present Kbzoipc86 year old male with PMH of asthma (positive methacholine), laryngeal spasm, former tobacco use, NSTEMI s/p RCA stent (2021) who presents to pulmonary clinic after a recent hospitalization for pneumonia. Patient presented to the [facility] on 01/24 and was told that [...] pack per day, social etoh, no illicits. 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 Methacholine Challenge test [...] abuse (3 (more content not included)... Normal [employer] Tobacco Screening.on Adult depression screening assessment No [facility]ML[facility] Work Phone: Fall risk assessment a) No falls within the last year [facility] (ML[facility]D) [facility] Work Phone: Tobacco use status CPHS b) No M [facility] (ML4D) [facility] Work Phone: Chart Updateon 01-25-2022 Chart Update Chart Update Received message from Mrs. Cole that Mr. Cole was went to [facility] for health issues on 01/24/22. Called [...] Jan 25 2022 12:22PM EST (Author) Normal [employer] Absolute lymphocyte countOrd ered By: Dr. Vera on 01-24-2022 Lymphocytes Auto (Unsp spec) [#/Vol] 0.58 10*3/uL 0.83-4.51 [facility] Basophil percentageOrdered B y: Dr. Vera on 01-24-2022 Basophils/100 WBC (Bld) 0.2 % 0-1 [facility] Chloride [Moles/Vol] 102 mmol/L 98-107 [facility] Eosinophils/100 WBC (Bld) 0.1 % 0-5 [facility] Glucose [Mass/Vol] 123 mg/dL 74-106 [facility] Comment on above: Fasting Glucose resu lt from 100 to 125 mg/dL suggests IMPAIRED HOMEOSTASIS per A.D.A. criteria. Neutrophils (Bld) [#/Vol] 7.8 10*3/uL 2.0-7.7 [facility] Neutrophils/100 WBC (Bld) 87.2 % 47-70 [facility] Potassium [Moles/Vol] 3.9 mmol/L 3.5-5.1 [facility] Sodium [Moles/Vol] 137 mmol/L 136-145 [facility] WBC (Bld) [#/Vol] 8.9 10*3/uL 4.4-11.0 [facility] Blood erythrocytes count (nu mber/volume)Ordered By: Dr. Vera on 01-24-2022 RBC (Bld) [#/Vol] 4.72 10*6/uL 4.6-6.2 [facility] Blood hemoglobin measurement (mass/volume)Ordered By: Dr. eVra on 01-24-2022 Hemoglobin (Bld) [Mass/Vol] 14.3 g/dL 13.0-16.5 [facility] Blood lymphocytes/100 leukoc ytesOrdered By: Dr. Vera on 01-24-2022 Lymphocytes/100 WBC (Bld) 6.5 % 19-41 [facility] Blood manual differential co mment interpretation (narrative result)Ordered By: Dr. Vera on 01-24-2022 Manual differential comment Buck (Bld) [Interp] SCANNED [facility] Blood monocytes/100 leukocyt esOrdered By: Dr. Vera on 01-24-2022 Monocytes/100 WBC (Bld) 5.7 % 0-[address] [facility] Blood platelet mean volumeOr dered By: Dr. Vera on 01-24-2022 Platelet mean volume (Bld) [Entitic vol] 11.1 fL 6.2-12.0 [facility] Determination of erythrocyte mean corpuscular volume (MCV)Ordered By: Dr. Vera on 01-24-2022 MCV (RBC) [Entitic vol] 93.4 fL 80-[address] [facility] Hematocrit Auto (Bld) [Volum e fraction]Ordered By: Dr. Vera on 01-24-2022 Hematocrit (Bld) [Volume fraction] 44.1 % 40-54 [facility] Influenza virus A and B and SARS-CoV-2 (COVID-19) Ag panel - Upper respiratory specimOrdered By: Dr. Vera on 01-24-2022 SARS-CoV-2 (COVID-19) RNA YOLY+probe Ql (Resp) [facility] Laboratory - Chemistry and C hemistry - challengeOrdered By: Dr. Vera on 01-24-2022 CO2 [Moles/Vol] 29.0 mmol/L 21.0-32.0 [facility] Natriuretic peptide B (Bld) [Mass/Vol] 110.9 pg/mL 0-100 [facility] Urea nitrogen/Creatinine [Mass ratio] 11.3 mg/mg 10-20 [facility] Laboratory - Hematology and Cell countsOrdered By: Dr. Vera on 01-24-2022 Erythrocyte distribution width (RBC) [Entitic vol] 45.9 fL 35.1-43.9 [facility] Erythrocyte distribution width (RBC) [Ratio] 13.3 % 11.6-14.6 [facility] Immature granulocytes/100 WBC (Bld) 0.300 % 0.0-0.9 [facility] Comment on above: IG% - Immature Granu locytes (promyelocytes, myelocytes and metamyelocytes) > 1% indicates that a LEFT SHIFT is Present. MCH (RBC) [Entitic mass] 30.3 pg 27.0-32.0 [facility] Nucleated RBC/100 WBC (Bld) [Ratio] 0 % 0-5 [facility] MCHC Auto (RBC) [Mass/Vol]Or dered By: Dr. Vera on 01-24-2022 MCHC (RBC) [Mass/Vol] 32.4 g/dL 32-36 [facility] No Panel InformationOrdered By: Dr. Vera on 01-24-2022 Estimated Creatinine Clearance Calc 56.85 ml/min [facility] Estimated GFR (MDRD) Amer 70 mL/min >60 [facility] Comment on above: GFR Calc Estimated GFR (MDRD) Non-Af Amer 58 mL/min >60 [facility] Comment on above: Non- GFR Calc Platelets bldOrdered By: Dr. Vera on 01-24-2022 Platelets (Bld) [#/Vol] 171 10*3/uL 150-450 [facility] RSV Ag EIAOrdered By: Dr. Mariposa levy on 01-24-2022 RSV Ag Immune stain Ql (Tiss) [facility] Serum or plasma calcium leona urement (mass/volume)Ordered By: Dr. Vera on 01-24-2022 Calcium [Mass/Vol] 9.3 mg/dL 8.5-10.1 [facility] Serum or plasma creatinine m easurement (mass/volume)Ordered By: Dr. Vera on 01-24-2022 Creatinine [Mass/Vol] 1.33 mg/dL 0.70-1.30 [facility] Comment on above: The validity of the calculated GFR & GFRAA in patients over 70 years has not been determined. Clinical correlation is essential. Serum or plasma urea nitroge n measurement (mass/volume)Ordered By: Dr. Vera on 01-24-2022 Urea nitrogen [Mass/Vol] 15 mg/dL 7-18 [facility] Thin prep Papanicolaou smear with manual screeningOrdered By: Dr. Vera on 01-24-2022 Thin prep Papanicolaou smear with manual screening 6 5-15 [facility] Follow Up (Pulmonary Medicin e)on 01-08-2022 Follow Up (Pulmonary Medicine) Diagnoses/Problems Asthma (493.90) (J45.909) SOB (shortness of breath) on exertion (786.05) (R06.02) Orders Start: Symbicort 80-4.5 MCG/ACT Inhalation Aerosol (Budesonide-Formoterol Fumarate); INHALE 2 PUFFS TWICE DAILY. RINSE MOUTH AFTER USE Rx By: Leta Lu; Dispense: 90 Days ; #:3 X 6.9 GM Inhaler; Refill: 3;For: Asthma; NAMRATA = N; Verified Transmission to [facility]; Last Updated By: [employer]; 01/08/2022 2:50:19 PM Otolaryngology Follow-Up Outpatient Follow-up Status: Hold For - Scheduling Requested for: 08Jan2022 Ordered Stat;For: Asthma; Ordered By: Leta Lu Performed: Due: [id number] Tobacco Use Screening; Status:Complete; Done: 08Jan2022 Perform:Not [...] spasm Follow up in 4-6 weeks. Leta Lu MD, MBA Pulmonary Critical Care Fellow Provider Impressions 61 [...] unsafe with his breathing; sent him to [place] [facility] where he received albuterol breathing treatment. 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 Normal [employer] Tobacco Screening.on 022 Adult depression screening assessment No [facility] [employer] Work Phone: Fall risk assessment a) [...] Work Phone: Comment on above: CALCULATIONS OF ILLI MATED GFR ARE PERFORMED USING THE 2020 CKD-EPI STUDY REFIT EQUATION WITHOUT THE RACE VARIABLE FOR THE IDMS-TRACEABLE CREATININE METHODS.https://jasn.asnjournals.org/content// ASN.9722829133 BNPon 12-09-2021 Natriuretic peptide B (Bld) [Mass/Vol] 81 pg/mL Normal 0 - 99 [facility] Comment on above: Result Comment: . <1 00 pg/mL - Heart failure unlikely 100-299 pg/mL - Intermediate probability of acute heart . failure exacerbation. Correlate with clinical . context and patient history. >=300 pg/mL - Heart Failure likely. Correlate with clinical . context and patient history. BNP testing is performed using different testing methodology at [facility] than at other [facility] hospitals. Direct result comparisons should only be made within the same method. Performed By: #### B NP2 #### [address] [address] CBC AND DIFFERENTIALon 12-09 Basophils (Bld) [#/Vol] 0.00 10*3/uL Normal 0.00 - 0.1 0 [facility] Comment on above: Performed By: #### C BCDF #### [address] [address] Basophils/100 WBC (Bld) 0.4 % Normal 0.0 - 2.[address] [facility] Comment on above: Performed By: #### C BCDF #### [address] [address] Eosinophils (Bld) [#/Vol] 0.10 10*3/uL Normal 0.00 - 0.70 [facility] Comment on above: Performed By: #### C BCDF #### [address] [address] Eosinophils/100 WBC (Bld) 1.0 % Normal 0.0 - 6.0 [facility] Comment on above: Performed By: #### C BCDF #### [address] [address] Erythrocyte distribution width (RBC) [Ratio] 13.3 % Normal 11.5 - 14.5 [facility] Comment on above: Performed By: #### C BCDF #### [address] [address] Hematocrit (Bld) [Volume fraction] 40.0 % Low 41.0 - 52.0 [facility] Comment on above: Performed By: #### C BCDF #### [address] [address] Hemoglobin (Bld) [Mass/Vol] 13.5 g/dL Normal 13.5 - 17.5 [facility] Comment on above: Performed By: #### C BCDF #### [address] [address] Lymphocytes (Bld) [#/Vol] 2.30 10*3/uL Normal 1.20 - 4.80 [facility] Comment on above: Performed By: #### C BCDF #### [address] [address] Lymphocytes/100 WBC (Bld) 26.8 % Normal 13.0 - 44.0 [facility] Comment on above: Performed By: #### C BCDF #### [address] [address] MCHC (RBC) [Mass/Vol] 33.9 g/dL Normal 32.0 - 36.0 [facility] Comment on above: Performed By: #### C BCDF #### [address] [address] MCV (RBC) [Entitic vol] 92 fL Normal 80 - [address] [facility] Comment on above: Performed By: #### C BCDF #### [address] [address] Monocytes (Bld) [#/Vol] 0.60 10*3/uL Normal 0.10 - 1.0 0 [facility] Comment on above: Performed By: #### C BCDF #### [address] [address] Monocytes/100 WBC (Bld) 7.5 % Normal 2.0 - 10.[address] [facility] Comment on above: Performed By: #### C BCDF #### [address] [address] Neutrophils (Bld) [#/Vol] 5.40 10*3/uL Normal 1.20 - 7.70 [facility] Comment on above: Result Comment: Perc ent differential counts (%) should be interpreted in the context of the absolute cell counts (cells/L). Performed By: #### C BCDF #### [address] [address] Neutrophils/100 WBC (Bld) 64.3 % Normal 40.0 - 80.0 [facility] Comment on above: Performed By: #### C BCDF #### [address] [address] NUCLEATED RBC 0.1 /100 WBC Normal [facility] Comment on above: Performed By: #### C BCDF #### [address] [address] Platelets (Bld) [#/Vol] 186 10*3/uL Normal 150 - 450 [facility] Comment on above: Performed By: #### C BCDF #### [address] [address] RBC 4.35 x10E12/L Low 4.50 - 5.90 [facility] Comment on above: Performed By: #### C BCDF #### [address] [address] WBC (Bld) [#/Vol] 8.4 10*3/uL Normal 4.4 - 11.3 [facility] Comment on above: Performed By: #### C BCDF #### [address] [address] CHEST 1 VIEWon 12-09-2021 CHEST 1 VIEW Patient Name: FREDDIE COLE STUDY: CHEST 1 VIEW; 12/08/2021 11:18 pm INDICATION: dyspnea . COMPARISON: 06/03/2021 ACCESSION NUMBER(S): [id number] ORDERING CLINICIAN: ALFA CABALLERO FINDINGS: No consolidation, pleural effusion, or pneumothorax. Slight low lung volumes. Heart size is normal. No acute osseous abnormality. Degenerative changes about the shoulders and spine. IMPRESSION: 1. No acute cardiopulmonary process. Electronically signed by: RAJI JENNINGS, DO Normal [facility] COMPREHENSIVE PANELon 2021 Albumin [Mass/Vol] 4.2 g/dL Normal 3.4 - 5.0 Located within [facility] Comment on above: Performed By: #### C MP #### [address] [address] ALP [Catalytic activity/Vol] 84 U/L Normal 33 - 136 [facility] Comment on above: Performed By: #### C MP #### [address] [address] ALT [Catalytic activity/Vol] 17 U/L Normal 10 - 52 [facility] Comment on above: Result Comment: Sadaf ents treated with Sulfasalazine may generate falsely decreased results for ALT. Performed By: #### C MP #### [address] [address] Anion gap [Moles/Vol] 11 mmol/L Normal 10 - 20 [facility] Comment on above: Performed By: #### C MP #### [address] [address] AST [Catalytic activity/Vol] 14 U/L Normal 9 - 39 [facility] Comment on above: Performed By: #### C MP #### [address] [address] Bilirubin [Mass/Vol] 0.5 mg/dL Normal 0.0 - 1.2 [facility] Comment on above: Performed By: #### C MP #### [address] [address] Calcium [Mass/Vol] 9.2 mg/dL Normal 8.6 - 10.3 Located within [facility] Comment on above: Performed By: #### C MP #### [address] [address] Chloride [Moles/Vol] 102 mmol/L Normal 98 - 107 [facility] Comment on above: Performed By: #### C MP #### [address] [address] Creatinine [Mass/Vol] 1.26 mg/dL Normal 0.50 - 1.30 [facility] Comment on above: Performed By: #### C MP #### [address] [address] GFR/1.73 sq M.predicted among non-blacks MDRD (S/P/Bld) [Vol rate/Area] 64 mL/min/{1.73_m2} Normal >90 [facility] Comment on above: Result Comment: CALC ULATIONS OF ESTIMATED GFR ARE PERFORMED USING THE 2020 CKD-EPI STUDY REFIT EQUATION WITHOUT THE RACE VARIABLE FOR THE IDMS-TRACEABLE CREATININE METHODS. https://jasn.asnjournals.org/content/early/ 858172 Performed By: #### C MP #### [address] [address] Glucose [Mass/Vol] 102 mg/dL High 74 - 99 Located within [facility] Comment on above: Performed By: #### C MP #### [address] [address] HCO3 (Bld) [Moles/Vol] 30 mmol/L Normal 21 - 32 [facility] Comment on above: Performed By: #### C MP #### [address] [address] Potassium [Moles/Vol] 3.5 mmol/L Normal 3.5 - 5.3 [facility] Comment on above: Performed By: #### C MP #### [address] [address] Protein [Mass/Vol] 6.9 g/dL Normal 6.4 - 8.2 Located within [facility] Comment on above: Performed By: #### C MP #### [address] [address] Sodium [Moles/Vol] 139 mmol/L Normal 136 - 145 Located within [facility] Comment on above: Performed By: #### C MP #### [address] [address] Urea nitrogen [Mass/Vol] 18 mg/dL Normal 6 - 23 [facility] Comment on above: Performed By: #### C MP #### [address] [address] Provider Note - ED v3on 11-19 Provider [...] and he was very swollen. Went to [facility] where they performed a catheterization and [...] day -.Me (more content not included)... Normal [facility] Risk Screen - Adult Emergenc yon [...] material; verbal instruction Cultural Considerationsnone Developmental Considerationsnone Episcopalian Considerationsnone Learning Assessment (Other Learner): Learning Assessment [...] an injured patient at a Trauma Center ([facility]/[place] /[place]): no Electronic Signatures: Ann Rudd) (Signed 09-Dec-2021 01:01) Authored: Preferred Language, Patient Preferred Pharmacy, Advanced Directives, Family Violence Adult, Learning Assessment (Patient), Learning Assessment (Other Learner), Pressure Injury/TB/Substance, Pressure Injury, CAGE Last Updated: 09-Dec-2021 01:01 by Ann Rudd (RN) Normal [facility] TROPONIN I, HIGH SENSITIVITY on 12-09-2021 TROPONIN I, HIGH SENSITIVITY 6 ng/L Normal 0 - 20 [facility] Comment on above: Result Comment: . [...] performed using a different testing methodology at [facility] than at other [facility]. Direct result comparisons should only be made within the same method. Performed By: #### T [facility] #### [address] [place] [address] TROPONIN I, HIGH SENSITIVITY 7 ng/L Normal 0 - 20 [facility] Comment on above: Result Comment: . [...] performed using a different testing methodology at [facility] than at other system [facility]. Direct result comparisons should only be made within the same method. Performed By: #### [facility] #### [address] [place] [address] Tropinin I.cardiac panel High sensitivity method 6 [...] performed using a different testing methodology at [facility] than at other [facility]. Direct result comparisons should only [...] BMI (kg/m2): 32.578 Calculated BSA (m2) 2.21 [place] Coma Scale: Best Eye Response: (E4) spontaneous Best Motor Response: (M6) obeys commands Best Verbal Response: (V5) oriented Meagan Score: 15 [place] Assessment Qualifiers: patient not sedated/intubated Cough lasting [...] 08-Dec-2021 23:26 by Jonna Brandt (RN) Normal [facility] Ancillary Visit (Sleep Lab)o n 12-08-2021 [...] Dec 08 2021 11:46PM EST (Author) Normal [facility] Ancillary Visit (Sleep Lab) Risk Screening Initial [...] Dec 08 2021 11:47PM EST (Author) Normal [facility] Complete Blood Count + Diffe brigitte 12-08-2021 Basophils/100 WBC (Bld) 0.4 % 0.0 - 2.0 M P-Cardiolo gy-[place] [...] above: . <100 pg/mL - Heart failure [id number] pg/mL - Intermediate probability of acute heart. failure exacerbation. Correlate with clinical. context and patient history. >=300 pg/mL - Heart Failure likely. Correlate with clinical. context and patient history.BNP testing is performed using different testing methodology at [facility] than at other [facility]. Direct result comparisons should only be made within the same method. 64 {mL/min/1.73m2} >90 MP-Car diolo gy-[place] [address] [place] Work Phone: Comment on above: CALCULATIONS OF LILI MATED GFR ARE PERFORMED USING THE 2020 CKD-EPI STUDY REFIT EQUATION WITHOUT THE RACE VARIABLE FOR THE IDMS-TRACEABLE CREATININE METHODS.https://jasn.asnjournals.org/content/early// ASN.7426342423 Radiologyon 12-08-2021 XR Chest Single view Normal [...] performed using a different testing methodology at [facility] than at other [facility]. Direct result comparisons should only be made within the same method. Follow Up (Pulmonary Medicin e)on 11-27-2021 Follow Up (Pulmonary Medicine) Diagnoses/Problems SOB (shortness of breath) on exertion (786.05) (R06.02) Orders Bronch Provocation-Methacholine Challenge; Status:Active; Requested for:27Nov2021; Perform:[facility]; Due:25Feb2022;Ordered; For:SOB (shortness of breath) on exertion; Ordered By:Leta Lu; Cough Assist Device; Status:Active; Requested for:27Nov2021; Perform:Not Applicable; Due:07Dec2021;Ordered; For:SOB (shortness of breath) on exertion; Ordered By:Leta Lu; Spirometry; Status:Active; Requested for:27Nov2021; Perform:[facility]; Due:25Feb2022;Ordered; For:SOB (shortness of breath) on exertion; [...] but no flu vaccine. 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 Normal [facility] Laboratory - Chemistry and C hemistry - challengeon 11-27-2021 Anion gap [Moles/Vol] 12 mmol/L 10 - 20 MP- Cardiolo gy-[place] Work Phone: Calcium [Mass/Vol] 9.4 mg/dL 8.6 - 10.6 MP-Car diolo gy-[place] Work Phone: Chloride [Moles/Vol] 104 mmol/L 98 - 107 MP-C ardiolo gy-[place] Work Phone: CO2 [Moles/Vol] 31 mmol/L 21 - 32 MP-Cardio lo gy-[place] Work Phone: Creatinine [Mass/Vol] 1.40 mg/dL above high threshold See Below [facility]iol[facility] Work Phone: Comment on above: Reference Range: 0.5 0 - 1.30 Glucose [Mass/Vol] 94 mg/dL 74 - 99 MP-Car diolo gy-[place] Work Phone: Natriuretic peptide B (Bld) [Mass/Vol] 144 pg/mL above high threshold 0 - 99 [facility] Work Phone: Comment on above: . <100 pg/mL - Heart failure [id number] pg/mL - Intermediate probability of acute heart. [...] 4.2 mmol/L 3.5 - 5.3 MP- [facility] Work Phone: Sodium [Moles/Vol] 143 mmol/L 136 - 145 MP-Car diolo gy-[place] Work Phone: Urea nitrogen [Mass/Vol] 19 mg/dL 6 - 23 [facility] Work Phone: No Panel Informationon 11-27 56 {mL/min/1.73m2} Abnormal >90 MP-Car diolo gy-[place] Work Phone: Comment on above: CALCULATIONS OF LILI MATED GFR ARE PERFORMED USING THE 2020 CKD-EPI STUDY REFIT EQUATION WITHOUT THE RACE VARIABLE FOR THE IDMS-TRACEABLE CREATININE METHODS.https://jasn.asnjournals.org/content// ASN.8121395389 Tobacco Screening.on 022 Adult depression screening assessment No [facility] [facility] Work Phone: Fall risk assessment a) No falls within the last year [facility] [facility] Work Phone: Tobacco use status CP b) No M G-[facility] [facility] [...] artery disease) Basic Metabolic Panel; Status:Active; Requested for:[id number]; Breathing difficulty, CAD (coronary artery disease), Hypertension Renew: Isosorbide Mononitrate ER 60 MG Oral Tablet Extended Release 24 Hour; Take 1 tablet daily Breathing difficulty, SOB (shortness of breath) on exertion Brain Natriuretic Peptide BNP; Status:Active; Requested for:[id number]; CAD (coronary artery disease) Renew: Furosemide 40 MG Oral Tablet; Take 1 tablet daily SOB (shortness of breath) on exertion In Lab PSG Sleep Study, 6 years of age and greater; Status:Hold For - Scheduling; Requested for:[id number]; Non-ambulatory,wheelchai r,other physical limitations? : No Ensuresis(prep [...] Past Medica (more content not included)... Normal [facility] Bilirubin, Serum Direct - Co [facility] 11-01-2021 Bilirubin.direct [Mass/Vol] 0.2 mg/dL 0.0 - 0.3 [facility] 6 Work Phone: Complete Blood Count + Diffe [facility] 11-01-2021 Basophils/100 WBC (Bld) 0.4 % 0.0 - 2.0 M [facility] 6 Work Phone: Erythrocyte distribution width (RBC) [Ratio] 13.4 % See Below [facility] 6 Work Phone: Comment on above: Reference Range: 11. 5 - 14.5 Hematocrit (Bld) [Volume fraction] 43.0 % See Below [facility] 6 Work Phone: Comment on above: Reference Range: 41. 0 - 52.0 Hemoglobin (Bld) [Mass/Vol] 14.3 g/dL See Below [facility] 6 Work Phone: Comment on above: Reference Range: 13. 5 - 17.5 Lymphocytes/100 WBC (Bld) 22.3 % See Below [facility] y [facility] [...] (Bld) 8.6 % 2.0 - 10.0 M P-[facility] 6 Work Phone: Neutrophils/100 [...] Differential 1.58 {x10E9/L} See Below [facility] [...] pg/mL above high threshold 0 - 99 [address] [address] Work Phone: Comment on above: . <100 pg/mL - Heart failure [id number] pg/mL - Intermediate probability of acute heart. [...] dye [Mass/Vol] 4.4 g/dL 3.4 - 5.0 [address] [place] [address] Work Phone: ALP [Catalytic activity/Vol] 67 U/L 33 - 136 [facility] 6 Work Phone: ALT With P-5'-P [Catalytic activity/Vol] 16 U/L 10 - 52 [facility] 6 Work Phone: Comment on above: Patients treated wit h Sulfasalazine may generate falsely decreased results for ALT. Anion gap [Moles/Vol] 11 mmol/L 10 - 20 [facility] 6 Work Phone: AST With P-5'-P [Catalytic activity/Vol] 14 U/L 9 - 39 [address] [place] [address] Work Phone: Bilirubin [Mass/Vol] 0.9 mg/dL 0.0 - 1.2 [facility] 6 Work Phone: Calcium [Mass/Vol] 9.6 mg/dL 8.6 - 10.3 [facility] 6 Work Phone: Chloride [Moles/Vol] 105 mmol/L 98 - 107 MP-P ulmonar y Medicine-[place] 6 Work Phone: CO2 [Moles/Vol] 29 mmol/L 21 - 32 MP-Pulmon ar y [facility] 6 Work Phone: Creatinine [Mass/Vol] 1.23 mg/dL See Below MP- Pulmonar y [facility] 6 Work Phone: Comment on above: Reference Range: 0.5 0 - 1.30 Glucose [Mass/Vol] 78 mg/dL 74 - 99 MP-Pul monar y Medicine-[place] 6 Work Phone: Iron [Mass/Vol] 76 ug/dL 35 - 150 [facility]-Pulmon ar y [facility] 6 Work Phone: Iron binding capacity [Mass/Vol] 347 ug/dL 240 - 445 [facility] 6 Work Phone: Potassium [Moles/Vol] 4.4 mmol/L 3.5 - 5.3 [...] RACE VARIABLE FOR THE IDMS-TRACEABLE CREATININE METHODS.https://jasn.asnjournals.org/content// ASN.2528288547 Reticulocyte Counton 022 Reticulocyte Count 36 pg 28 - 38 -Pul monar y Medicine-[place] 6 Work Phone: Reticulocyte Count 13.8 % 0.0 - 16.0 MP-Pul monar y [facility] 6 Work Phone: Reticulocyte Count 0.074 {x10E12/L} See Below -[facility] [...] (coronary artery disease). COMPARISON: None. ACCESSION NUMBER(S): [id number]; [id number]; [id number] ORDERING CLINICIAN: JAYNE MENDENHALL TECHNIQUE: DIVISION OF [...] left ventricular function. 65% Electronically signed by: TJ AREVALO DO Normal [place] No Panel Informationon 10-26 Normal [facility] [address] [place] Work Phone: Please click on the link to view the study images Normal [facility] Work Phone: MP-Cardiol[facility] [address] [place] Work Phone: Syngo Nuclear Orderon 2021 Syngo Nuclear Order [facility] , [address], [place] [address] and Nuclear Pharmacologic Stress Test Patient Name: FREDDIE COLE Ordering Physician: Jayne Godinez Study Date: 10/26/2021 Reading Physician: [id number] Nevin Rogers MD MRN/PID: [id number] Supervising [id number] Jaime Boateng MD Physician: Accession/Order#: [id number] Referring Physician: [id number] JAYNE GODINEZ Date of : 1960 PCP: Gender: M Fellow: Admit Date: 10/26/2021 Fellow: Admission Status: Outpatient Ground Equipment Mechanic: Jazlyn Hayes Height: 175.26 cm Nurse: Lana Diego RN Weight: 100.70 kg Wet Cotton Feeder: NA BSA: 2.16 m2 Technologist: BMI: 32.78 kg/m2 Additional Staff: Age: 61 years cc report to: Patient Location: [facility] report to: Jayne Godinez Radiology Study Type: Syngo Nuclear Order Diagnosis/ICD: I25.10-Atherosclerotic heart disease; R06.89-Other abnormalities of breathing Indication: Dyspnea, Hypertension and hyperlipidemia Procedure/CPT: Stress Test Interpretation-[id number]; Stress Test Supervision-[id number] Falls Risk: Study Details: Correct procedure and correct patient verified verbally. Patient History: . 61y/o male presents to be evaluated for CAD and shortness of breath. PMH: HTN, hyperlipidemia, stent RCA 05/2021, DVT, Graves disease, diastolic CHF, laryngeal spasms, quit smoking 04/2021, denies family hx of CAD. Allergies: Gemtesa. Medications: The patient's prescribed medication is Isosorbide [place] (last dose 10/25), ASA, Atorvastatin, Plavix, Ezetimibe, [...] 3. Nuclear image results are reported separately. [id number] Nevin Rogers MD Electronically signed on 10/27/2021 at 2:20:11 PM Final Normal [place] Blood Pressure Cuff Sizeon 0 10-11-2021 Adult depression screening assessment No MP-Cardiolo [facility]-[place] [address] [place] Work Phone: Fall risk assessment [...] Med Order; Status:Hold For - Scheduling; Requested for:[id number]; Radiologist to Determine Optimal Study : Y [...] in the hospital and sent home with MAURICEN Charly for weight gain with daily weight checks. [...] [#/Vol] 4.69 {x10E12/L} See Below MP -Cardiolo gy-[place] [...] above high threshold 0 - 99 [facility] Work Phone: Comment on above: . <100 pg/mL - Heart failure [id number] pg/mL - Intermediate probability of acute heart. [...] Panel Informationon 09-11 [email or web address]: [email or web address]?[email or web address] [email or web address]?[email or web address]& Date=11-09-2021&Time=14% 3a46%3a01%3a00&TestType= ECG&Site=1&OutputType=PD F&Ext=PDF [facility] Work Phone: Sinus rhythm with Premature ventricular complexes MP-Cardiol[facility] Work Phone: Borderline Abnormal MP-Ca rdiolo gy-[place] Work Phone: [phone] [facility]iol[facility] Work Phone: [phone] [facility] Work Phone: [phone] [facility] Work Phone: [phone] [facility]iol[facility] Work Phone: [phone] [facility] Work Phone: 11 1 [facility]iol[facility] Work Phone: 22 [phone] [facility] Work Phone: 6 1 [facility] Work Phone: 42 [phone] [facility] Work Phone: [phone] [facility]iol[facility] Work Phone: [phone] [facility] Work Phone: 84 [phone] [facility] Work Phone: [phone] [facility] Work Phone: [phone] [facility] Work Phone: TSH - Thyroid Stimulating Ho Yanick napoleson 09-11-2021 TSH Qn 1.10 m[IU]/L See Below [facility] Work Phone: Comment on above: Reference Range: 0.4 4 - 3.98 TSH testing is performed using different testing methodology at [facility] than at other [facility]. Direct result comparisons should only be [...] 0.3 % 0.0 - 2.0 M [facility] [facility] [place] Work Phone: Erythrocyte distribution width (RBC) [Ratio] 13.0 % See Below [facility] [facility] [place] Work Phone: Comment on above: Reference Range: 11. 5 - 14.5 Hematocrit (Bld) [Volume fraction] 40.6 % below low threshold See Below MG-[facility]tolaryn [facility]ology[facility] Work Phone: Comment on above: Reference Range: 41. 0 - 52.0 Hemoglobin (Bld) [Mass/Vol] 13.3 g/dL below low threshold See Below MG-[facility]tol[facility] Work Phone: Comment on above: Reference Range: 13. 5 - 17.5 Lymphocytes/100 WBC (Bld) 25.6 % See Below MG-[facility]tol[facility] g[facility] Work Phone: Comment on above: Reference Range: 13. 0 - 44.0 MCHC (RBC) [Mass/Vol] 32.8 g/dL See Below MG- [place] gology[facility] [place] Work Phone: Comment on above: Reference Range: 32. 0 - 36.0 MCV (RBC) [Entitic vol] 95 fL 80 - 100 M G[facility] [place] Work Phone: Monocytes/100 WBC (Bld) 8.9 % 2.0 - 10.0 M G[facility] Work Phone: Neutrophils/100 WBC (Bld) 63.9 % See Below MG-[facility] Work [...] (Bld) [#/Vol] 6.3 10*3/uL 4.4 - 11.3 MG-[place] laryn arleneogy-[place] Work Phone: Complete Blood Count + Differential 0.02 {x10E9/L} See Below MG-[facility] Work Phone: Comment on above: Reference Range: 0.0 0 - 0.10 Complete Blood Count + Differential 0.08 {x10E9/L} See Below MG-[facility] Work Phone: Comment on above: Reference Range: 0.0 0 - 0.70 Complete Blood Count + Differential 0.56 {x10E9/L} See Below MG-[facility] Work Phone: Comment on above: Reference Range: 0.1 0 - 1.00 Complete Blood Count + Differential 1.60 {x10E9/L} See Below MG-[facility] Work Phone: Comment on above: Reference Range: 1.2 0 - 4.80 Complete Blood Count + Differential 4.00 {x10E9/L} See Below MG-[facility] Work Phone: Comment on above: Reference Range: 1.2 0 - 7.70 Percent differential counts (%) should be interpreted in the context of the absolute cell counts (cells/L). Complete Blood Count + Differential 1.3 % 0.0 - 6.0 MG-[facility]tolaryn gology[facility] Work Phone: Blood Pressure Cuff Sizeon [...] % 0.0 - 2.0 M G-Medicine -[place] Ben[facility]te[facility] Work Phone: Erythrocyte distribution width (RBC) [Ratio] 12.4 % See Below MG-Medicine -[place] [facility] Work Phone: Comment on above: Reference Range: 11. 5 - 14.5 Hematocrit (Bld) [Volume fraction] 42.6 % See Below MG-Medicine -[place] [facility] Work Phone: Comment on above: Reference Range: 41. 0 - 52.0 Hemoglobin (Bld) [Mass/Vol] 13.9 g/dL See Below Dominique Benítez Work Phone: Comment on above: Reference Range: 13. 5 - 17.5 Lymphocytes/100 WBC (Bld) 18.7 % See Below Dominique Benítez Work Phone: Comment on above: Reference Range: 13. 0 - 44.0 MCHC (RBC) [Mass/Vol] 32.6 g/dL See Below ISRA Benítez Work Phone: Comment on above: Reference Range: 32. 0 - 36.0 MCV (RBC) [Entitic vol] 98 fL 80 - 100 M Gagan Benítez Work Phone: Monocytes/100 WBC (Bld) 9.6 % 2.0 - 10.0 M Gagan Benítez Work Phone: Neutrophils/100 WBC (Bld) 69.0 % See Below Dominique Benítez Work Phone: Comment on above: Reference Range: 40. 0 - 80.0 Platelets (Bld) [#/Vol] 164 10*3/uL 150 - 450 Dominique Benítez Work Phone: RBC (Bld) [#/Vol] 4.35 {x10E12/L} below low threshold See Below Dominique Benítez Work Phone: Comment on above: Reference Range: 4.5 0 - 5.90 WBC (Bld) [#/Vol] 7.3 10*3/uL 4.4 - 11.3 MG-Med icine Sharon Benítez Work Phone: Complete Blood Count + Differential 0.04 {x10E9/L} See Below Dominique Benítez Work Phone: Comment on above: Reference Range: 0.0 0 - 0.10 Complete Blood Count + Differential 0.13 {x10E9/L} See Below [facility] Work Phone: Comment on above: Reference Range: 0.0 0 - 0.70 Complete Blood Count + Differential 0.70 {x10E9/L} See Below [facility] Work Phone: Comment on above: Reference Range: 0.1 0 - 1.00 Complete Blood Count + Differential 1.36 {x10E9/L} See Below [facility] MergeLocalIzaiah Ben[facility]tez Work Phone: Comment on above: Reference Range: 1.2 0 - 4.80 Complete Blood Count + Differential 5.02 {x10E9/L} See Below [facility] Work Phone: Comment on above: Reference Range: 1.2 0 - 7.70 Complete Blood Count + Differential 1.8 % 0.0 - 6.0 [facility] Work Phone: Complete Blood Count + Differential 0.4 % 0.0 - 0.9 [facility] Herrera Ben[facility] Work Phone: Comment on above: Immature Granulocyte Count (IG) includes promyelocytes, myelocytes and metamyelocytes but does not include bands. Percent differential counts (%) should be interpreted in the context of the absolute cell counts (cells/L). Complete Blood Count + Differential 0.0 {/100_WBC} 0.0-0.0 [facility] Work Phone: Laboratory - Chemistry and C hemistry - challengeon 06-08-2021 Albumin BCP dye [Mass/Vol] 4.0 g/dL 3.4 - 5.0 [facility] Her[facility] Ben[facility] Work Phone: ALP [Catalytic activity/Vol] 80 U/L 33 - 136 [facility] Her[facility] Work Phone: ALT With P-5'-P [Catalytic activity/Vol] 22 U/L 10 - 52 [facility] Her[facility] Ben[facility] Work Phone: Comment on above: Patients treated wit h Sulfasalazine may generate falsely decreased results for ALT. Anion gap [Moles/Vol] 16 mmol/L 10 - 20 [facility] Work Phone: AST With P-5'-P [Catalytic activity/Vol] 25 U/L 9 - 39 [facility] Work [facility]: [phone] Bilirubin [Mass/Vol] 0.9 mg/dL 0.0 - 1.2 [facility] Work Phone: [phone] Calcium [Mass/Vol] 9.6 mg/dL 8.6 - 10.6 [facility] Work Phone: [phone] Chloride [Moles/Vol] 98 mmol/L 98 - 107 [facility] Work Phone: [phone] CO2 [Moles/Vol] 29 mmol/L 21 - 32 [facility] Work Phone: [phone] Creatinine [Mass/Vol] 1.18 mg/dL See Below [facility] Work Phone: Comment on above: Reference Range: 0.5 0 - 1.30 Glucose [Mass/Vol] 81 mg/dL 74 - 99 [facility] Work Phone: [phone] Potassium [Moles/Vol] 3.7 mmol/L 3.5 - 5.3 [facility] Work Phone: Protein [Mass/Vol] 6.6 g/dL 6.4 - 8.2 MG-[facility] Work Phone: [phone] Sodium [Moles/Vol] 139 mmol/L 136 - 145 -[facility] Work Phone: [phone] Urea nitrogen [Mass/Vol] 17 mg/dL 6 - 23 [facility] Work Phone: Magnesium, Serumon 2 Magnesium [Mass/Vol] 2.00 mg/dL See Below [facility] Work Phone: Comment on above: Reference Range: 1.6 0 - 2.40 No Panel Informationon 06-08 69 {mL/min/1.73m2} >90 MG-Wil Benítez Work Phone: Comment on above: CALCULATIONS OF LILI MATED GFR ARE PERFORMED USING THE 2020 CKD-EPI STUDY REFIT EQUATION WITHOUT THE RACE VARIABLE FOR THE IDMS-TRACEABLE CREATININE METHODS.https://jasn.asnjournals.org/content/early/ ASN.9103057021 Laboratory - Hematology and Cell countson 06-07-2021 [...] Informationon 06-07 0.0 {/100_WBC} 0.0-0.0 MG-Medicin e Sharon Benítez Work Phone: Renal Function Panelon 06-07 Albumin BCP dye [Mass/Vol] 3.8 g/dL 3.4 - 5.0 [facility] Sharon Benítez Work Phone: Anion gap [Moles/Vol] 11 [...] 4.5 mmol/L 3.5 - 5.3 MG- Medicine Sharon Benítez Work Phone: Sodium [Moles/Vol] 138 mmol/L 136 - 145 MG-Med icine Sharon Benítez Work Phone: Urea nitrogen [Mass/Vol] 18 mg/dL 6 - 23 MG-Pierce Benítez Work Phone: Renal Function Panel 69 {mL/min/1.73m2} >90 MG-Pierce Benítez Work Phone: Comment on above: CALCULATIONS OF LILI MATED GFR ARE PERFORMED USING THE 2020 CKD-EPI STUDY REFIT EQUATION WITHOUT THE RACE VARIABLE FOR THE IDMS-TRACEABLE CREATININE METHODS.https://jasn.asnjournals.org/content/early// ASN.5614004596 HIV 1/2 ANTIGEN/ANTIBODY SCR EEN WITH REFLEX TO CONFIRMATIONon 06-06-2021 HIV 1+2 Ab Qn (S) Non-Reactive See Below MG-Me dicine Sharon Benítez Work Phone: Comment on above: SOURCE: Reference nge: NONREACTIVE HIV Ag/Ab screen is performed using the [employer] HIV Ag/Ab Combo assay which detects the [...] {SECONDS} above high threshold 89 - 169 [facility] Sharon Benítez Work Phone: Comment on above: Note new reference r ana as of 05/23/2018. Target ACT range will vary based on the patient population, clinical status, and surgical intervention occurring. [facility] Sharon Benítez Work Phone: Renal Function Panelon 06-06 Albumin BCP dye [Mass/Vol] 4.0 g/dL 3.4 - 5.0 MG-Pierce Bneítez Work Phone: Anion gap [Moles/Vol] 11 mmol/L 10 - 20 MG- Pierce Benítez Work Phone: Calcium [Mass/Vol] 9.3 mg/dL 8.6 - 10.6 MG-Med colette Benítez Work Phone: Chloride [Moles/Vol] 103 mmol/L 98 - 107 MG-M edcolette Benítez Work Phone: CO2 [Moles/Vol] 31 mmol/L 21 - 32 MG-Medici ne Sharon Benítez Work Phone: [phone] Creatinine [Mass/Vol] 1.21 mg/dL See Below ISRA Benítez Work Phone: Comment [...] Phone: Renal Function Panel 67 {mL/min/1.73m2} >90 [facility]icine Sharon Benítez Work Phone: Comment on above: CALCULATIONS OF LILI MATED GFR ARE PERFORMED USING THE 2020 CKD-EPI STUDY REFIT EQUATION WITHOUT THE RACE VARIABLE FOR THE IDMS-TRACEABLE CREATININE METHODS.https://jasn.asnjournals.org/content// ASN.1035079145 CT Angio Coronary Arteries w ith Heart Flowon 06-05-2021 CT Angio Coronary Arteries with Heart Flow Normal [facility] Sharon Benítez Work Phone: Magnesium, Serumon Magnesium [Mass/Vol] 2.11 mg/dL See Below MG-M edicine Sharon Benítez Work Phone: Comment on above: Reference Range: 1.6 0 - 2.40 Renal Function Panelon 06-05 Albumin BCP dye [Mass/Vol] 4.3 g/dL 3.4 - 5.0 MG-Medicine -Izaiah Benítez Work Phone: Anion gap [Moles/Vol] 14 mmol/L 10 - 20 MG- Medicine Sharon Benítez Work Phone: Calcium [Mass/Vol] 9.9 mg/dL 8.6 - 10.6 MG-Med icine Sharon Benítez Work Phone: Chloride [Moles/Vol] 100 mmol/L 98 - 107 MG-M edicine Sharon Benítez Work Phone: CO2 [Moles/Vol] 31 mmol/L 21 - 32 MG-Medici ne -Izaiah Benítez Work Phone: Creatinine [Mass/Vol] 1.14 mg/dL See Below MG- Medicine Sharon Benítez Work Phone: Comment on above: Reference Range: 0.5 0 - 1.30 Glucose [Mass/Vol] 114 mg/dL above high threshold 74 - 99 [facility]-Medicine Sharon Benítez Work Phone: Phosphate [Mass/Vol] 3.8 mg/dL 2.5 - 4.9 MG-M edicine Sharon Benítez Work Phone: Comment on above: The performance peggy acteristics of phosphorus testing in heparinized plasma have been validated by the individual laboratory site where testing is performed. Testing on heparinized plasma is not approved by the FDA; however, such approval is not necessary. Potassium [Moles/Vol] 4.0 mmol/L 3.5 - 5.3 MG- Pierce Benítez Work Phone: Sodium [Moles/Vol] 141 mmol/L 136 - 145 [facility] icine Sharon Benítez Work Phone: Urea nitrogen [Mass/Vol] 18 mg/dL 6 - 23 [facility] Work Phone: Renal Function Panel 72 {mL/min/1.73m2} >90 [facility] Work Phone: Comment on above: CALCULATIONS OF LILI MATED GFR ARE PERFORMED USING THE 2020 CKD-EPI STUDY REFIT EQUATION WITHOUT THE RACE VARIABLE FOR THE IDMS-TRACEABLE CREATININE METHODS.https://jasn.asnjournals.org/content// ASN.7895112793 Complete Blood Count + Lily briggs 06-04-2021 Basophils/100 WBC (Bld) 0.6 % 0.0 - 2.0 M Pierce Benítez Work Phone: Erythrocyte distribution width (RBC) [Ratio] 12.5 % See Below [facility] Work Phone: Comment on above: Reference Range: 11. 5 - 14.5 Hematocrit (Bld) [Volume fraction] 44.8 % See Below [facility] Work Phone: Comment on above: Reference Range: 41. 0 - 52.0 Hemoglobin (Bld) [Mass/Vol] 14.3 g/dL See Below [facility] Work Phone: Comment on above: Reference Range: 13. 5 - 17.5 Lymphocytes/100 WBC (Bld) 23.3 % See Below -Medicine Sharon Benítez Work Phone: Comment on above: Reference Range: 13. 0 - 44.0 MCHC (RBC) [Mass/Vol] 31.9 g/dL below low threshold See Below -Pierce Benítez Work Phone: Comment on above: Reference Range: 32. 0 - 36.0 MCV (RBC) [Entitic vol] 98 fL 80 - 100 M Gagan Benítez Work Phone: Monocytes/100 WBC (Bld) 9.1 % 2.0 - 10.0 M Gagan Benítez Work Phone: Neutrophils/100 WBC (Bld) 64.1 % See Below Dominique Benítez Work Phone: Comment on above: Reference Range: 40. 0 - 80.0 Platelets (Bld) [#/Vol] 179 10*3/uL 150 - 450 Dominique Benítez Work Phone: RBC (Bld) [#/Vol] 4.55 {x10E12/L} See Below MG Lety Benítez Work Phone: Comment on above: Reference Range: 4.5 0 - 5.90 WBC (Bld) [#/Vol] 7.2 10*3/uL 4.4 - 11.3 MG-Med icine -Izaiah Benítez Work Phone: Complete Blood Count + Differential 0.04 {x10E9/L} See Below [facility]-Medicine Sharon Benítez Work Phone: Comment on above: Reference Range: 0.0 0 - 0.10 Complete Blood Count + Differential 0.18 {x10E9/L} See Below [facility] Sharon Benítez Work Phone: Comment on above: Reference Range: 0.0 0 - 0.70 Complete Blood Count + Differential 0.65 {x10E9/L} See Below -Medicine Sharon Benítez Work Phone: Comment on above: Reference Range: 0.1 0 - 1.00 Complete Blood Count + Differential 1.67 {x10E9/L} See Below [facility] Work Phone: Comment on above: Reference Range: 1.2 0 - 4.80 Complete Blood Count + Differential 4.61 {x10E9/L} See Below Useful SystemsIzaiah [facility] Work Phone: Comment on above: Reference Range: 1.2 0 - 7.70 Complete Blood Count + Differential 2.5 % 0.0 - 6.0 Useful SystemsIzaiah [facility] Work Phone: Complete Blood Count + Differential 0.4 % 0.0 - 0.9 [employer] Work Phone: Comment on above: Immature Granulocyte Count (IG) includes promyelocytes, myelocytes and metamyelocytes but does not include bands. Percent differential counts (%) should be interpreted in the context of the absolute cell counts (cells/L). Complete Blood Count + Differential 0.0 {/100_WBC} 0.0-0.0 [employer] Work Phone: Hemoglobin A1Con 06-04-2021 Glucose [Mass/Vol] 105 mg/dL DailyTicket colette MergeLocalIzaiah [facility] Work Phone: HbA1c (Bld) [Mass fraction] 5.3 % [employer] Work Phone: Comment on above: Diagnosis of Diabete s-Adults Non-Diabetic: < or = 5.6% Increased risk for developing diabetes: 5.7-6.4% Diagnostic of diabetes: > or = 6.5%. Monitoring of Diabetes Age (y) Therapeutic Goal (%) Adults: >18 <7.0 Pediatrics: 13-18 <7.5 7-12 <8.0 0- 6 7.5-8.5 [employer]. Diabetes Care 33(S1), Feb 2009. Lipid Panelon 06-04-2021 Cholesterol [Mass/Vol] 189 mg/dL 0 - 199 ZiteIzaiah [facility] Work Phone: Comment on above: . AGE [...] dosing. Cholesterol in HDL [Mass/Vol] 49.1 mg/dL [employer] Work Phone: Comment on above: . AGE VERY LOW LOW N ORMAL HIGH 0-19 Y < 35 < 40 40-45 ---- 20-24 Y ---- < 40 >45 ---- >24 Y ---- < 40 40-60 >60. Cholesterol in LDL [Mass/Vol] 109 mg/dL above high threshold 0 - 99 [facility] Work Phone: Comment on above: . NEAR BORD AGE SOBIA RABLE OPTIMAL HIGH HIGH VERY HIGH 0-19 Y 0 - 109 --- 110-129 >/= 130 ---- 20-24 Y 0 - 119 --- 120-159 >/= 160 ---- >24 Y 0 - 99 100-129 130-159 160-189 >/=190. Cholesterol.total/Jelly sterol in HDL [Mass ratio] 3.8 {ratio} MG-[facility] Work Phone: Comment on above: REF VALUESDESIRABLE < 3.4HIGH RISK > 5.0 Triglyceride [Mass/Vol] 153 mg/dL above hi gh threshold 0 - 149 [facility] Work Phone: Comment on above: . AGE [...] Panel 31 mg/dL 0 - 40 [facility] Sharon Benítez Work Phone: Renal Function Panelon 06-04 Albumin BCP dye [Mass/Vol] 4.3 g/dL 3.4 - 5.0 MG-Medicine -Izaiah Benítez Work Phone: Anion gap [Moles/Vol] 13 mmol/L 10 - 20 MG- Medicine -Izaiah Benítez Work Phone: Calcium [Mass/Vol] 9.8 mg/dL 8.6 - 10.6 [facility] Izaiah Ben[facility]tez Work Phone: Chloride [Moles/Vol] 102 mmol/L 98 - 107 [facility] -Izaiah Benítez Work Phone: CO2 [Moles/Vol] 30 mmol/L 21 - 32 MG-Medici ne -Izaiah Benítez Work Phone: Creatinine [Mass/Vol] 1.08 mg/dL See Below MG- Medicine Sharon Benítez Work Phone: Comment on above: Reference Range: 0.5 0 - 1.30 Glucose [Mass/Vol] 86 mg/dL 74 - 99 MG-Med icine -Izaiah Benítez Work Phone: Phosphate [Mass/Vol] 3.8 mg/dL 2.5 - 4.9 [facility] -Izaiah Benítez Work Phone: Comment on above: [...] RACE VARIABLE FOR THE IDMS-TRACEABLE CREATININE METHODS.https://jasn.asnjournals.org/content/early/ ASN.2860873449 Troponin I, Serumon 06-05-19 Troponin I.cardiac [Mass/Vol] 0.49 ng/mL above high threshold See Below DosYoguresPierce Benítez Work Phone: Comment on above: Reference [...] is performed using different testing methodology at [facility] than at other [facility] hospitals. Direct result comparisons should only be [...] (Bld) 0.4 % 0.0 - 2.0 M MergeLocalPierce Benítez Work Phone: Erythrocyte distribution width (RBC) [Ratio] 12.4 % See Below DosYoguresPierce Benítez Work Phone: [phone] Comment on above: Reference Range: 11. 5 - 14.5 Hematocrit (Bld) [Volume fraction] 38.3 % below low threshold See Below [facility] Work Phone: [phone] Comment on above: Reference Range: 41. 0 - 52.0 Hemoglobin (Bld) [Mass/Vol] 13.3 g/dL below low threshold See Below [facility] Work Phone: [phone] Comment on above: Reference Range: 13. 5 - 17.5 Lymphocytes/100 WBC (Bld) 22.5 % See Below [facility] Work Phone: [phone] Comment on above: Reference Range: 13. 0 - 44.0 MCHC (RBC) [Mass/Vol] 34.7 g/dL See Below [facility] Pierce Benítez Work Phone: [phone] Comment on above: Reference Range: 32. 0 - 36.0 MCV (RBC) [Entitic vol] 93 fL 80 - 100 M AkshatPierce Benítez Work Phone: [phone] Monocytes/100 WBC (Bld) 9.6 % 2.0 - 10.0 M Pierce Benítez Work Phone: [phone] Neutrophils/100 WBC (Bld) 65.6 % See Below [facility] Work Phone: [phone] Comment on above: Reference Range: 40. 0 - 80.0 Platelets (Bld) [#/Vol] 154 10*3/uL 150 - 450 Pierce Benítez Work Phone: [phone] RBC (Bld) [#/Vol] 4.13 {x10E12/L} below low threshold See Below MergeLocalPierce Benítez Work Phone: [phone] Comment on above: Reference Range: 4.5 0 - 5.90 WBC (Bld) [#/Vol] 6.9 10*3/uL 4.4 - 11.3 [facility] Sharon Benítez Work Phone: Complete Blood Count + Differential 0.03 {x10E9/L} See Below MergeLocalPierce Benítez Work Phone: Comment on above: Reference Range: 0.0 0 - 0.10 Complete Blood Count + Differential 0.11 {x10E9/L} See Below [facility] Work Phone: Comment on above: Reference Range: 0.0 0 - 0.70 Complete Blood Count + Differential 0.66 {x10E9/L} See Below MergeLocalPierce Benítez Work Phone: Comment on above: Reference Range: 0.1 0 - 1.00 Complete Blood Count + Differential 1.55 {x10E9/L} See Below MergeLocalPierce Benítez Work Phone: Comment on above: Reference Range: 1.2 0 - 4.80 Complete Blood Count + Differential 4.51 {x10E9/L} See Below MergeLocalPierce Herrera Benítez Work Phone: Comment on above: Reference Range: 1.2 0 - 7.70 Complete Blood Count + Differential 1.6 % 0.0 - 6.0 [facility] Her[facility] Ben[facility]tez Work Phone: Complete Blood Count + Differential 0.3 % 0.0 - 0.9 [facility] Her[facility] Benítez Work Phone: Comment on above: Immature Granulocyte Count (IG) includes promyelocytes, myelocytes and metamyelocytes but does not include bands. Percent differential counts (%) should be interpreted in the context of the absolute cell counts (cells/L). Complete Blood Count + Differential 0.0 {/100_WBC} 0.0-0.0 MergeLocalPierce Herrera Benítez Work Phone: INFLUENZA A/B, COVID 2019 PC R,SYMPTOMATICon 06-03-2021 Date and time of symptom onset [id number] [facility] Her[facility] Benítez Work Phone: INFLUENZA A/B, COVID 2018 PCR,SYMPTOMATIC Not detected See Below MergeLocalPierce MergeLocalIzaiah Benítez Work Phone: Comment on above: Reference Range: Not Detected.This test has received FDA Emergency Use Authorization (EUA) and has been verified by [facility] ([facility]). This test is only authorized for the duration of time that circumstances exist to justify the authorization of the emergency use of in vitro diagnostic tests for the detection of SARS-CoV-2 virus and/or diagnosis of COVID-19 infection under section 564(b)(1) of the Act, 21 U.S.C. 360bbb-3(b)(1), unless the authorization is terminated or revoked sooner. [facility] is certified under CLIA-88 as qualified to perform high complexity testing. Testing is performed in the [facility] located at [address] [place] [address].SARS-CoV-2/Flu/RSV Multiplex Test: Fact sheet for providers: https://www.fda.gov/media/668349/downloadFact sheet for patients: https://www.fda.gov/media/367618/download Reference Range: Not Detected Respiratory virus testing [...] 06-03-2021 TSH Qn 1.64 m[IU]/L See Below [employer] Work Phone: Comment on above: Reference Range: 0.4 4 - 3.98 TSH testing is performed using different testing methodology at [facility] than [facility] other [facility]. Direct result comparisons should only be made within the same method. Albumin BCP dye [Mass/Vol] 3.9 g/dL 3.4 - 5.0 [employer] Work Phone: ALP [Catalytic activity/Vol] 80 U/L 33 - 136 contrib.comZafgen Benítez Work Phone: ALT With P-5'-P [Catalytic activity/Vol] 14 U/L 10 - 52 [facility] Work Phone: Comment on above: Patients treated wit h Sulfasalazine may generate falsely decreased results for ALT. Anion gap [Moles/Vol] 11 mmol/L 10 - 20 [facility]- [facility] Work Phone: AST With P-5'-P [Catalytic activity/Vol] 13 U/L 9 - 39 [facility] Work Phone: Bilirubin [Mass/Vol] 0.5 mg/dL 0.0 - 1.2 MG-M [facility] Work Phone: Calcium [Mass/Vol] 9.5 mg/dL 8.6 - 10.6 MG-Med icine [facility] Work Phone: Chloride [Moles/Vol] 106 mmol/L 98 - 107 MG-M [facility] Work Phone: [phone] CO2 [Moles/Vol] 27 mmol/L 21 - 32 MG-Medici scionhealthIzaiah Benítez Work Phone: [phone] Creatinine [Mass/Vol] 1.09 mg/dL See Below [facility] Work Phone: Comment on above: Reference Range: 0.5 0 - 1.30 Glucose [Mass/Vol] 104 mg/dL above high threshold 74 - 99 [facility] Work Phone: Natriuretic peptide B (Bld) [Mass/Vol] 112 pg/mL above high threshold 0 - 99 [facility] Work Phone: Comment on above: . <100 pg/mL - Heart failure -297 pg/mL - Intermediate probability of acute heart. [...] 5.3 MG- Medicine -Izaiah Benítez Work Phone: [phone] Protein [Mass/Vol] 7.0 g/dL 6.4 - 8.2 MG-Med colette -Izaiah Benítez Work Phone: [phone] Sodium [Moles/Vol] 140 mmol/L 136 - 145 MG-Med icine -Izaiah Benítez Work Phone: [phone] Urea nitrogen [Mass/Vol] 16 mg/dL 6 - 23 MG-Medicine -Izaiah Benítez Work Phone: [phone] Magnesium, Serumon Magnesium [Mass/Vol] 2.14 mg/dL See Below MG-M edicine -Izaiah Benítez Work Phone: [phone] Comment on above: Reference Range: 1.6 0 - 2.40 No Panel Informationon 06-03 [email or web address]?RetrieveTestByDateTim e?VzvcypnAM=[id number]&Da te=03-06-2021&Time=23%3a 12%3a15%3a00&TestType=EC G&Site=1&OutputType=PDF& Ext=PDF [facility] -Izaiah Benítez Work Phone: [phone] Normal sinus rhythm MG-Me dicine -Izaiah Benítez Work Phone: [phone] Abnormal MG-Medicine -Izaiah Benítez Work Phone: [phone] 1 [facility] -Izaiah Benítez Work Phone: [phone] 1 [facility] -Izaiah Benítez Work Phone: [phone] 1 [facility] -Izaiah Benítez Work Phone: [phone] 1 [facility] -Izaiah Benítez Work Phone: [phone] 1 [facility]-Med[facility] -Izaiah Benítez Work Phone: [phone] 1 MG-Medicine -Izaiah Jeyson Work Phone: [phone] -[phone] 1 [facility]-Med[facility] -Izaiah Jeyson Work Phone: [phone] 1 [facility] -Izaiah Jeyson Work Phone: [phone] -[phone] 1 MG-Medicine -Izaiah Jeyson Work Phone: [phone] 1 MG-Medicine -Izaiah Jeyson Work Phone: [phone] 1 MG-Medicine -Izaiah Jeyson Work Phone: [phone] 1 MG-Medicine -Izaiah Jeyson Work Phone: [phone] 1 MG-Medicine -Izaiah Jeyson Work Phone: [phone] 1 MG-Medicine -Izaiah Jeyson Work Phone: [phone] [email or web address]?RetrieveTestByDateTim e?FabriinGO=[id number]&Da te=03-06-2021&Time=23%3a 11%3a44%3a00&TestType=EC G&Site=1&OutputType=PDF& Ext=PDF MG-Medicine -Izaiah Jeyson Work Phone: [phone] Normal sinus rhythm MG-Me dicine -Izaiah Jeyson Work Phone: [phone] Abnormal MG-Medicine -Izaiahmarisol Benítez Work Phone: [phone] 1 [facility]-Med[facility] -Izaiah Jeyson Work Phone: [phone] 1 MG-Medicine -Izaiah Jeyson Work Phone: [phone] 1 [facility] -Izaiah Jeyson Work Phone: [phone] 1 MG-Medicine -Izaiah Jeyson Work Phone: [phone] 1 MG-Medicine -Izaiah Jeyson Work Phone: [phone] 1 MG-Medicine -Izaiah Jeyson Work Phone: [phone] -[phone] 1 MG-Med[facility] -Izaiah Jeyson Work Phone: [phone] 1 MG-Medicine -Izaiah Jeyson Work Phone: [phone] 1 MG-Medicine -Izaiahmarisol Benítez Work Phone: [phone] 1 MG-Medicine -Izaiahmarisol Benítez Work Phone: [phone] 1 [facility]-Medicine -Izaiah Benítez Work Phone: [phone] 1 [facility]-Med[facility] -Izaiah Benítez Work Phone: [phone] 1 MG-Medicine -Izaiah Benítez Work Phone: [phone] 1 MG-Medicine -Izaiahmarisol Benítez Work Phone: [phone] [email or web address]?RetrieveTestByDateTim e?OhjtezzRJ=[id number]&Da te=03-06-2021&Time=14%3a 15%3a16%3a00&TestType=EC G&Site=1&OutputType=PDF& Ext=PDF [facility] Work Phone: [phone] Please see ED Provid er Note for formal interpretation [facility] Work Phone: [phone] Normal [facility] Work Phone: [phone] 1 [facility] Work Phone: [phone] 1 [facility] Work Phone: [phone] 1 [facility] Work Phone: [phone] 1 [facility] Work Phone: [phone] 1 [facility] Work Phone: [phone] 1 [facility] Work Phone: [phone] 1 [facility] Work Phone: [phone] 1 [facility] Work Phone: [phone] 1 [facility] [...] RACE VARIABLE FOR THE IDMS-TRACEABLE CREATININE METHODS.https://jasn.asnjournals.org/content/early/ ASN.1954634994 Please click on the link to view the study images Normal MG-Pierce Benítez Work Phone: Radiologyon 06-03-2021 XR Chest Single view Normal MG-M edicine Sharon Benítez Work Phone: Troponin I, Serumon 06-04-19 Troponin I.cardiac [Mass/Vol] 0.66 ng/mL above high threshold See Below MGLety Benítez Work Phone: Comment [...] is performed using different testing methodology at [facility] than at other [facility] hospitals. Direct result comparisons should only be [...] [Mass/Vol] 0.60 ng/mL Critically high See Below DosYoguresMedicine [facility] Work Phone: Comment on above: Reference Range: [...] is performed using different testing methodology at [facility]. Direct result comparisons should only [...] Urinalysison 06-03-2021 Color (U) YELLOW See Below DosYoguresMedicine [facility] Work Phone: Comment on above: Reference Range: STR AW,YELLOW Glucose Ql (U) Negative NEGATIVE MG-Medicin e -e-channel Work Phone: Ketones Ql (U) Negative NEGATIVE MG-Medicin e [facility] Work Phone: Leukocyte esterase Test strip Ql (U) Negative NEGATIVE MGMergeLocalMedicine [facility] Work Phone: pH (U) 5.0 [pH] 5.0 - 8.0 MG-Medicine [facility] Work Phone: Protein (U) [Mass/Vol] Negative NEGATIVE MG -Medicine [facility] Work Phone: RBC (U) [#/Vol] SMALL (1+) Abnormal NEGATIVE MG-Medici ne -Izaiah Benítez Work Phone: Specific gravity (U) [Rel density] 1.013 1 See Below MG-Medicine -Izaiah Benítez Work Phone: Comment on above: Reference Range: 1.0 05 - 1.035 Urinalysis Negative NEGATIVE MG-Medicine Sharon Benítez Work Phone: Urinalysis <2.0 0.0 - 1.9 MG-Medicine -Izaiah Benítez Work Phone: Urinalysis CLEAR CLEAR -Medicine Sharon Benítez Work Phone: Urinalysis, Microscopicon Hyaline casts LM Ql (Urine sed) 3+ Abnormal MG-Medicine Sharon Benítez Work Phone: Urinalysis, Microscopic 1+ Abnormal M GPierce Herrera Benítez Work Phone: Urinalysis, Microscopic <1 M GMedicine Sharon Benítez Work Phone: Urinalysis, Microscopic 1 {/HPF} 0-5 M AkshatPierce Herrera Benítez Work Phone: Complete Blood Count + Diffe rentialon 05-17-2021 Basophils/100 WBC (Bld) 0.4 % 0.0 - 2.0 M G-[facility] [place] [address] [facility] Work Phone: Erythrocyte distribution width (RBC) [Ratio] 12.7 % See Below [facility] [address] [facility] Work Phone: Comment on above: Reference Range: 11. 5 - 14.5 Hematocrit (Bld) [Volume fraction] 45.7 % See Below [facility] [address] [facility] Work Phone: Comment on above: Reference Range: 41. 0 - 52.0 Hemoglobin (Bld) [Mass/Vol] 15.3 g/dL See Below [facility] [address] [facility] Work Phone: Comment on above: Reference [...] fL 80 - 100 M [facility] Work Phone: Monocytes/100 WBC (Bld) 7.3 % 2.0 - 10.0 M [facility] Work Phone: Neutrophils/100 WBC (Bld) 76.0 % See Below [facility] Work Phone: Comment on above: Reference Range: 40. 0 - 80.0 Platelets (Bld) [#/Vol] 181 10*3/uL 150 - 450 [facility] Work Phone: RBC (Bld) [#/Vol] 4.69 {x10E12/L} See Below [facility] Work Phone: Comment on above: Reference Range: 4.5 0 - 5.90 WBC (Bld) [#/Vol] 8.1 10*3/uL 4.4 - 11.3 [facility] Work Phone: Complete [...] + Differential 0.59 {x10E9/L} See Below [facility] [address] [facility] Work Phone: Comment on above: Reference Range: 0.1 0 - 1.00 Complete Blood Count + Differential 1.25 {x10E9/L} See Below [facility] [place] [address] [facility] Work Phone: Comment on above: Reference Range: 1.2 0 - 4.80 Complete Blood Count + Differential 6.15 {x10E9/L} See Below [facility] [place] [address] [facility] Work Phone: Comment on above: Reference Range: 1.2 0 - 7.70 Complete Blood Count + Differential 0.6 % 0.0 - 6.0 MG-Pulm Sleep-[place] [address] Sleep Work Phone: Complete Blood Count + Differential 0.2 % 0.0 - 0.9 MG-Pul Sleep-[place] [address] Sleep Work Phone: Comment on above: Immature Granulocyte Count (IG) includes promyelocytes, myelocytes and metamyelocytes but does not include bands. Percent differential counts (%) should be interpreted in the context of the absolute cell counts (cells/L). Ferritin, Serumon 05-17-2021 Ferritin [Mass/Vol] 209 ug/L 20 - 300 MG-Pu lm [facility] [address] [facility] Work Phone: Gamma Glutamyl Transferase, Serumon 05-17-2021 Gamma glutamyl transferase [Catalytic activity/Vol] 29 U/L 5 - 64 MG[facility] [address] Sleep Work Phone: Immunoglobulin E Level, Seru mon 05-17-2021 IgE Qn 191 {IU/mL} 0 - 214 MG-Medicine -Izaiah Benítez Work Phone: Laboratory - Chemistry and C hemistry - challengeon 05-17-2021 Albumin BCP dye [Mass/Vol] 4.4 g/dL 3.4 - 5.0 MG-[facility] [facility] 6 Sleep Work Phone: ALP [Catalytic activity/Vol] 68 U/L 33 - 136 [facility] [facility] 6 Sleep Work Phone: ALT With P-5'-P [Catalytic activity/Vol] 14 U/L 10 - 52 MG[facility]ulm [facility] Sleep Work Phone: Comment on above: Patients treated wit h Sulfasalazine may generate falsely decreased results for ALT. Anion gap [Moles/Vol] 11 mmol/L 10 - 20 MG- [facility] [facility] 6 Sleep Work Phone: AST With P-5'-P [Catalytic activity/Vol] 13 U/L 9 - 39 MG[facility] [address] Sleep Work Phone: Bilirubin [Mass/Vol] 0.6 mg/dL 0.0 - 1.2 MG-P ulm [facility] [address] Sleep Work Phone: Calcium [Mass/Vol] 9.6 mg/dL 8.6 - 10.3 MG-Pul m [facility] [address] Sleep Work Phone: Chloride [Moles/Vol] 103 mmol/L 98 - 107 MG-P ulm [facility] [address] Sleep Work Phone: CO2 [Moles/Vol] 29 mmol/L 21 - 32 MG[facility]Pul[facility] [address] Sleep Work Phone: Creatinine [Mass/Vol] 1.07 mg/dL See Below MG- Pulm [facility] [address] Sleep Work Phone: Comment on above: Reference Range: 0.5 0 - 1.30 Glucose [Mass/Vol] 98 mg/dL 74 - 99 MG-Pul m [facility] [address] Sleep Work Phone: IgA [Mass/Vol] 133 mg/dL 70 - 400 MG-Medicin goldie Herrera Benítez Work Phone: Comment on above: MONOCLONAL PROTEINS MAY CAUSE FALSELY LOWRESULTS IN THIS ASSAY. SERUM PROTEINELECTROPHORESIS SHOULD BE DONE THEFIRST TEST TO EVALUATE MONOCLONAL GAMMOPATHY. IgG [Mass/Vol] 1060 mg/dL 700 - 1600 MG-Medicin e [employer]Izaiah [facility] Work Phone: Comment on above: MONOCLONAL PROTEINS MAY CAUSE FALSELY LOWRESULTS IN THIS ASSAY. SERUM PROTEINELECTROPHORESIS SHOULD BE DONE THEFIRST TEST TO EVALUATE MONOCLONAL GAMMOPATHY. IgM [Mass/Vol] 75 mg/dL 40 - 230 MG-Medicin e MergeLocalIzaiah [facility] Work Phone: Comment on above: MONOCLONAL PROTEINS MAY CAUSE FALSELY LOWRESULTS IN THIS ASSAY. SERUM PROTEINELECTROPHORESIS SHOULD BE DONE THEFIRST TEST TO EVALUATE MONOCLONAL GAMMOPATHY. Iron [Mass/Vol] 67 ug/dL 35 - 150 MG-[facility]ulm [facility] [facility] 6 Sleep Work Phone: Iron binding capacity [Mass/Vol] 335 ug/dL 240 - 445 [facility] [facility] 6 Sleep Work Phone: Potassium [Moles/Vol] 3.9 mmol/L 3.5 - 5.3 MG- Pulm Sleep-[place] [facility] 6 Sleep Work Phone: Protein [Mass/Vol] 6.9 g/dL 6.4 - 8.2 MG-Pul m [facility] [facility] 6 Sleep Work Phone: Sodium [Moles/Vol] 139 [...] RACE VARIABLE FOR THE IDMS-TRACEABLE CREATININE METHODS.https://jasn.asnjournals.org/content// ASN.8554201152 Reticulocyte Counton 022 Reticulocyte Count 35 pg 28 - 38 MG-Pul m [place] [address] Sleep Work Phone: Reticulocyte Count 12.6 % 0.0 - 16.0 MG-Pul m [place] [address] Sleep Work Phone: Reticulocyte Count 0.065 {x10E12/L} See Below MG-Pulm [place] [address] Sleep Work Phone: Comment on above: Reference Range: 0.0 22 - 0.118 Reticulocyte Count 1.4 % 0.5 - 2.0 MG-Pul m [place] [address] Sleep Work Phone: Sedimentation Rate, Erythroc yteon 05-17-2021 ESR (Bld) [Velocity] 16 mm/h 0 - 20 MG-P ulm [place] [address] Sleep Work Phone: Tobacco Screening.on 022 Fall risk assessment a) No falls within the last year MG-OtolarTelinetSpiro trammell Work Phone: Tobacco use status [facility] a) Yes M G-Otolaryn [facility] CentersS[facility]ro [employer] Work Phone: Tobacco Screening. Yes MG-[place] laryn [facility] [place] [place] CT Chest Low Dose for Lung S creening w/o Contraston 04-21-2021 CT Chest for screening Normal MG -Pulm [place] [address] Sleep Work Phone: Complete Blood Count + Diffe rentialon 04-14-2021 Basophils/100 WBC (Bld) 0.1 % 0.0 - 2.0 M G-Otolaryn gology-[place] man Voice Work Phone: [phone] Erythrocyte distribution width (RBC) [Ratio] 13.7 % See Below Fariba wasserman Voice Work Phone: [phone] Comment on above: Reference Range: 11. 5 - 14.5 Hematocrit (Bld) [Volume fraction] 47.6 % See Below Fariba wasserman [employer] Work Phone: [phone] Comment on above: Reference Range: 41. 0 - 52.0 Hemoglobin (Bld) [Mass/Vol] 15.5 g/dL See Below Fariba wasserman [employer] Work Phone: [phone] Comment on above: Reference Range: 13. 5 - 17.5 Lymphocytes/100 WBC (Bld) 7.3 % See Below Fariba wasserman [employer] Work Phone: [phone] Comment on above: Reference Range: 13. 0 - 44.0 MCHC (RBC) [Mass/Vol] 32.6 g/dL See Below ISRA wasserman Voice Work Phone: [phone] Comment on above: Reference Range: 32. 0 - 36.0 MCV (RBC) [Entitic vol] 101 fL above hi gh threshold 80 - 100 Fariba wasserman [employer] Work Phone: [phone] Monocytes/100 WBC (Bld) 4.3 % 2.0 - 10.0 M Vic wasserman Voice Work Phone: [phone] Neutrophils/100 WBC (Bld) 88.2 % See Below Fariba wasserman [employer] Work Phone: [phone] Comment on above: Reference Range: 40. 0 - 80.0 Platelets (Bld) [#/Vol] 149 10*3/uL below lo w threshold 150 - 450 Fariba wasserman Voice Work Phone: [phone] RBC (Bld) [#/Vol] 4.73 {x10E12/L} See Below MG -Otolaryn arleneogy-[place] man Voice Work Phone: Comment on [...] + Differential 0.1 % 0.0 - 6.0 MG-Otolarbayron watsony-Randa wasserman Voice Work Phone: Complete Blood Count [...] high threshold 20 - 300 MG-Otolaryn arleneogy-[place] man Voice Work Phone: Tobacco Screening.on 022 Fall risk assessment a) No falls within the last year -Pediatri cs-[place] 204 DO Work Phone: Tobacco use status [facility] a) Yes M G-Pediatri cs-[place] 204 DO Work Phone: Tobacco Screening. Yes MG-Ped iatri cs-[place] 204 DO Work Phone: Tobacco Screening.on 022 Fall risk assessment a) No falls within the last year MG-Pulm [facility] [facility] 6 Sleep Work Phone: Tobacco use status CPHS a) Yes M G-Pulm Sleep-[place] [facility] 6 Sleep Work Phone: Complete Blood Count + Diffe rentialon 03-17-2021 Basophils/100 WBC (Bld) 0.1 % 0.0 - 2.0 M Nikhigh islandbayron jacobsNessa wasserman Voice Work Phone: [phone] Erythrocyte distribution width (RBC) [Ratio] 14.2 % See Below [facility] islandbayron jacobsmariferRanda wasserman Voice Work Phone: [phone] Comment on above: Reference Range: 11. 5 - 14.5 Hematocrit (Bld) [Volume fraction] 45.7 % See Below [facility]igh islandbayron jacobsmariferRanda comfort Voice Work Phone: Comment on above: Reference Range: 41. 0 - 52.0 Hemoglobin (Bld) [Mass/Vol] 14.9 g/dL See Below [facility]igh islandbayron jacobsmariferRanda wasserman Voice Work Phone: [phone] Comment on above: Reference Range: 13. 5 - 17.5 Lymphocytes/100 WBC (Bld) 7.0 % See Below [facility] islandbayron jacobsmariferRanda comfort Voice Work Phone: [phone] Comment on above: Reference Range: 13. 0 - 44.0 MCHC (RBC) [Mass/Vol] 32.6 g/dL See Below [facility] Othigh islandbayron jacobsy-Randa wasserman Voice Work Phone: Comment on above: Reference Range: 32. 0 - 36.0 MCV (RBC) [Entitic vol] 99 fL 80 - 100 M AkshatOthigh islandyn Martine wasserman Voice Work Phone: [phone] Monocytes/100 WBC (Bld) 3.0 % 2.0 - 10.0 M G-Otolarbayron kaye-Randa wasserman Voice Work Phone: [phone] Neutrophils/100 WBC (Bld) 89.8 % See Below MG-Otolarbayron wasserman Voice Work Phone: [phone] Comment on above: Reference Range: 40. 0 - 80.0 Platelets (Bld) [#/Vol] 150 10*3/uL 150 - 450 MG-Otolarbayron kaye-Randa wasserman Voice Work Phone: [phone] RBC (Bld) [#/Vol] 4.61 {x10E12/L} See Below MG -Otolarbayron kaye-Randa wasserman Voice Work Phone: [phone] Comment on above: Reference Range: 4.5 0 - 5.90 WBC (Bld) [#/Vol] 10.1 10*3/uL 4.4 - 11.3 MG-Ot myra wasserman Voice Work Phone: [phone] Complete Blood Count + Differential 0.01 {x10E9/L} See Below MG-Otolarbayron kaye-Randa wasserman Voice Work Phone: [phone] Comment on above: Reference Range: 0.0 0 - 0.10 Reference Range: 0.0 0 - 0.70 Complete Blood Count + Differential 0.30 {x10E9/L} See Below MG-Otolarbayron watsony-Randa wasserman Voice Work Phone: [phone] Comment on above: Reference Range: 0.1 0 - 1.00 Complete Blood Count + Differential 0.71 {x10E9/L} below low threshold See Below MG-Otolarbayron jacobsogy-Randa wasserman Voice Work Phone: [phone] Comment on above: Reference Range: 1.2 0 - 4.80 Complete Blood Count + Differential 9.11 {x10E9/L} above high threshold See Below MG-Otolaryn arleneogy-Randa wasserman Voice Work Phone: Comment on above: Reference Range: 1.2 0 - 7.70 Percent differential counts (%) should be interpreted in the context of the absolute cell counts (cells/L). Complete Blood Count + Differential 0.1 % 0.0 - 6.0 MG-Otolaryn gology-[place] man Voice Work Phone: Ferritin, Serumon 03-17-2021 Ferritin [Mass/Vol] 303 ug/L above high threshold 20 - 300 MG-Otolaryn gology-[place] man Voice Work Phone: [phone] Respirationon 03-07-2021 Fall risk assessment a) No falls within the last year [facility] Work Phone: [phone] Tobacco use status [facility]S a) Yes [facility] Phone: [phone] Respiration Normal [facility] Work Phone: [phone] Respiration Adult [facility] Work Phone: [phone] Respiration Yes [facility] Work Phone: [phone] Panel Informationon 03-01 184CC MP-Urology- [place] Work Phone: [phone] Tobacco Screening.on Fall risk assessment a) No falls within the last year MP-[facility]rology- [place] Work Phone: [phone] Tobacco use status CPHS a) Yes M P-Urology- [place] Work Phone: [phone] Tobacco Screening. Yes MP-Uro logy- [place] Work Phone: [phone] C1Q Complementon 02-27-2021 Complement C1q [Mass/Vol] 15.8 mg/dL 10.2-20.3 MG-Pediatri cs-[place] 204 DO Work Phone: Tobacco Screening.on Fall risk assessment a) No falls within the last year MG-Pediatri cs-[place] 204 DO Work Phone: Tobacco use status CPHS a) Yes M G-Pediatri cs-[place] 204 DO Work Phone: Tobacco Screening. Yes MG-Ped iatri cs-[place] 204 DO Work Phone: Carbon Monoxide, Whole Blood on 02-15-2021 Carboxyhemoglobin (Bld) [Mass fraction] 8.0 % above high threshold 0.0-3.6 [employer] Work Phone: Comment on above: Environmental Exposu re: Nonsmokers <3.7 Smokers <9.9 Occupational Exposure: MICK 3.5 Detection Limit = 0.2 Complete Blood Count + Diffe rentialon 02-15-2021 Basophils/100 WBC (Bld) 0.3 % 0.0 - 2.0 M [employer] 1500 Work Phone: Erythrocyte distribution width (RBC) [Ratio] 13.7 % See Below [employer] H[employer]Vol[employer] Work Phone: Comment on above: Reference Range: 11. 5 - 14.5 Hematocrit (Bld) [Volume fraction] 49.4 % See Below [employer] Work Phone: Comment on above: Reference Range: 41. 0 - 52.0 Hemoglobin (Bld) [Mass/Vol] 16.5 g/dL See Below Smart HologramsVolga [employer] Work Phone: Comment on above: Reference Range: 13. 5 - 17.5 Lymphocytes/100 WBC (Bld) 9.5 % See Below [employer] Work Phone: Comment on above: Reference Range: 13. 0 - 44.0 MCHC (RBC) [Mass/Vol] 33.4 g/dL See Below ConturVol[employer] 1500 Work Phone: Comment on above: Reference Range: 32. 0 - 36.0 MCV (RBC) [Entitic vol] 97 fL 80 - 100 M SocialVoltVolga [employer] Work Phone: Monocytes/100 WBC (Bld) 2.9 % 2.0 - 10.0 M SimulScribeide [employer] Work Phone: Neutrophils/100 WBC (Bld) 86.3 % See Below MG-Genetics -[place] Work Phone: Comment on above: Reference Range: 40. 0 - 80.0 Platelets (Bld) [#/Vol] 158 10*3/uL 150 - 450 [facility] -[place] Work Phone: RBC (Bld) [#/Vol] 5.08 {x10E12/L} See Below MG -Genetics -[place] [facility] Work Phone: Comment on above: Reference Range: 4.5 0 - 5.90 WBC (Bld) [#/Vol] 11.7 10*3/uL above high threshold 4.4 - 11.3 [facility] -[place] [facility] Work Phone: Complete Blood Count + Differential 0.03 {x10E9/L} See Below [facility] -[place] [facility] Work Phone: Comment on above: Reference Range: 0.0 0 - 0.10 Complete Blood Count + Differential 0.01 {x10E9/L} See Below MG-[facility] -[place] 1500 Work Phone: Comment on above: Reference Range: 0.0 0 - 0.70 Complete Blood Count + Differential 0.34 {x10E9/L} See Below MG-[facility] -[place] 1500 Work Phone: Comment on above: Reference Range: 0.1 0 - 1.00 Complete Blood Count + Differential 1.11 {x10E9/L} below low threshold See Below MG-[facility]etics -[place] 1500 Work Phone: Comment on above: Reference Range: 1.2 0 - 4.80 Complete Blood Count + Differential 10.08 {x10E9/L} above high threshold See Below MG-[facility]etics -[place] [facility] Work Phone: Comment on above: Reference Range: 1.2 0 - 7.70 Complete Blood Count + Differential 0.1 % 0.0 - 6.0 [facility] -[place] 1500 Work Phone: Complete Blood Count + Differential 0.9 % 0.0 - 0.9 [facility] -[place] [facility] Work Phone: Comment on above: Immature Granulocyte Count (IG) includes promyelocytes, myelocytes and metamyelocytes but does not include bands. Percent differential counts (%) should be interpreted in the context of the absolute cell counts (cells/L). Erythropoietin Assayon 02-15 Erythropoietin (EPO) Qn 7.6 {mIU/mL} 2.6-18.5 MG-[facility] 1500 Work Phone: Comment on above: [email or web address] el DxI 800 Immunoassay SystemValues obtained with different assay methods or kits cannot be usedinterchangeably. Results cannot be interpreted as absolute evidenceof the presence or absence of malignant disease. Gamma Glutamyl Transferase, Serumon 02-15-2021 Gamma glutamyl transferase [Catalytic activity/Vol] 53 U/L 5 - 64 MG-[place] [address] Work Phone: Immunoglobulin E Level, Seru mon 02-15-2021 IgE Qn 211 {IU/mL} 0 - 214 MG-[facility] 1500 Work Phone: Laboratory - Chemistry and C hemistry - challengeon 02-15-2021 Albumin BCP dye [Mass/Vol] 4.5 g/dL 3.4 - 5.0 MG-[facility] 1500 Work Phone: ALP [Catalytic activity/Vol] 66 U/L 33 - 136 MG-[facility] 1500 Work Phone: ALT With P-5'-P [Catalytic activity/Vol] 21 U/L 10 - 52 MG-[facility] 1500 Work Phone: Comment on above: Patients treated wit h Sulfasalazine may generate falsely decreased results for ALT. Anion gap [Moles/Vol] 11 mmol/L 10 - 20 MG- [facility] 1500 Work Phone: AST With P-5'-P [Catalytic activity/Vol] 12 U/L 9 - 39 [facility] [employer] 1500 Work Phone: Bilirubin [Mass/Vol] 0.8 mg/dL 0.0 - 1.2 MG-G enetics -[place] 1500 Work Phone: [phone] Calcium [Mass/Vol] 10.0 mg/dL 8.6 - 10.3 MG-Gen etics -[place] 1500 Work Phone: [phone] Chloride [Moles/Vol] 100 mmol/L 98 - 107 MG-G enetics -[place] 1500 Work Phone: [phone] CO2 [Moles/Vol] 31 mmol/L 21 - 32 MG-Geneti cs -[place] 1500 Work Phone: [phone] Creatinine [Mass/Vol] 1.02 mg/dL See Below MG- Genetics -[place] 1500 Work Phone: [phone] Comment on above: Reference Range: 0.5 0 - 1.30 Glucose [Mass/Vol] 112 mg/dL above high threshold 74 - 99 MG-[facility] -[place] [facility] Work Phone: [phone] Iron [Mass/Vol] 119 ug/dL 35 - 150 MG-Geneti cs -[place] 1500 Work Phone: [phone] Iron binding capacity [Mass/Vol] 388 ug/dL 240 - 445 MG[facility] -[place] 1500 Work Phone: [phone] LDH [Catalytic activity/Vol] 156 U/L 84 - 246 [facility] -[place] 1500 Work Phone: [phone] Potassium [Moles/Vol] 4.4 mmol/L 3.5 - 5.3 MG- [facility]etics -[place] 1500 Work Phone: [phone] Protein [Mass/Vol] 7.4 g/dL 6.4 - 8.2 MG-Gen etics -[place] 1500 Work Phone: [phone] Sodium [Moles/Vol] 138 mmol/L 136 - 145 MG-Gen etics -[place] [facility] Work Phone: [phone] Urea nitrogen [Mass/Vol] 14 mg/dL 6 - 23 MG-[facility] 1500 Work Phone: [phone] No Panel Informationon 02-15 Not detected See Below MG-[facility] -[place] 1500 Work Phone: Comment on above: Reference [...] not met (Almanza C, et al. Haematologica. 2014;99(9):9141-9505. Yamilet Jones, et al. Haematologica. 2014;99(7):m369-q365.). Detection of the JAK2 V617F mutation at [...] extraction and testing is performed in the [facility] ([facility]) located at [address] [place] [address] (CLIA License #[id number], CAP #[id number]).DISCLAIMER: This test was developed and its analytical performance characteristics have been determined by [facility] ([facility]) part of the Department of Pathology at [facility]. This test has not been cleared or approved by the FDA; however, the FDA has determined that such approval is not necessary. The [facility] is CAP accredited and certified under the Clinical Laboratory Improvement Amendments of 1988 (CLIA-88) as qualified to perform high complexity testing. Reference Range: NOT DETECTEDMRN: [id number] PatientName: KELSEY FRAZIER NOT DETECTED METHODOLOGY:RNA isolated from peripheral blood or bone marrow was reverse transcribedto cDNA. M-bcr (b2a2 and b3a2 aka p210 Major) or m-bcr (e1a2 aka [id number]) fusion transcripts are assessed by quantitative real-time [...] and corresponding conversion factor. Testing was performedat [facility] ([facility]) located at [address] [place], [place] [address] [place] [address] (CLIA License [id number], CAP [id number]). DISCLAIMER:This test was developed at [facility] [place] [facility] ([id number], CAP [id number]). Testing was performed at [facility] ([facility]) located at [address] [place] [address] Ave [address] [place] [address] (CLIA License [id number], CAP [id number]). It has notbeen cleared or approved by the FDA. The FDA has determined that suchclearance or approval is not necessary. This test is used for clinicalpurposes. It should not be regarded as investigational or for research.This laboratory is certified under the Clinical Laboratory ImprovementAmendments of 1988 (CLIA-88) as qualified to perform high complexityclinical laboratory testing. SEE COMMENT MG-[place] -[place] 1500 Work Phone: Comment on above: Normal 2.9 % MG-[employer] 1500 Work Phone: Comment on above: HGB A2 values may be falsely elevated in the presence of HGB S. 0.5 % MG-[employer] 1500 Work Phone: 96.6 % MG-[employer] 1500 Work Phone: 31 % 25 - 45 MG-Genetics -[place] 1500 Work Phone: >60 >60 [facility] 1500 Work Phone: Comment on above: CALCULATIONS OF LILI MATED GFR ARE PERFORMED USING THE MDRD STUDY EQUATION FOR THE IDMS-TRACEABLE CREATININE METHODS. CLIN CHEM 2007;53:766-72 Path Review-HGB Identiflreoy onon 02-15-2021 Path Review-HGB Identification MELVIN MG-Genetics -[place] 1500 Work Phone: Comment on above: By her/his signature above, the Pathologist listed as making the final interpretation certifies that she/he has personally reviewed this case. Reticulocyte Counton Reticulocyte Count 38 pg 28 - 38 MG-Gen etics -[place] 1500 Work Phone: Reticulocyte Count 9.5 % 0.0 - 16.0 MG-Gen etics -[place] 1500 Work Phone: Reticulocyte Count 0.079 {x10E12/L} See Below MG-[facility]etics -[place] 1500 Work Phone: Comment on above: Reference Range: 0.0 22 - 0.118 Reticulocyte Count 1.6 % 0.5 - 2.0 MG-Gen etics -[place] 1500 Work Phone: Sedimentation Rate, Erythroc yteon 02-15-2021 ESR (Bld) [Velocity] 14 mm/h 0 - 20 MG-G enetics -[place] 1500 Work Phone: Uric Acid, Serumon Urate [Mass/Vol] 5.6 mg/dL 4.0 - 7.5 MG-Ronda ics -[place] 1500 Work Phone: Comment on above: Venipuncture immedia tely after or during the administration of Metamizole may lead to falsely low results. Testing should be performed immediately prior to Metamizole dosing. IO UA (automated w/o microsc opy)on 01-25-2021 Protein (U) [Mass/Vol] Negative [facility]rolog[facility]mand[facility] [address] DO Work Phone: IO UA (automated w/o microscopy) Negative [place] [address] DO Work Phone: IO UA (automated w/o microscopy) Normal (0.2-1.0 mg/dl) -Urolog yMark [place] [address] DO Work Phone: IO UA (automated w/o microscopy) 6.0 1 [facility] [place] [address] DO Work Phone: IO UA (automated w/o microscopy) Trace [place] [address] DO Work Phone: IO UA (automated w/o microscopy) 1.025 1 [facility] [place] [address] DO Work Phone: IO UA (automated w/o microscopy) Clear [facility]rolog[facility] [address] DO Work Phone: IO UA (automated w/o microscopy) Yellow [facility]ITAL[facility]rolog[facility]manda [facility] [address] DO Work Phone: IO Ultrasound, measurement p ost-void resid urine and/or bl cap; no imagon 01-25-2021 IO Ultrasound, measurement post-void resid urine and/or bl cap; no imag 324 ml/min [facility]ITAL[facility]rolog[facility]manda [facility] [address] DO Work Phone: Tobacco Screening.on 021 Fall risk assessment a) No falls within the last year [place] [address] DO Work Phone: Tobacco use status CP a) Yes M [place] [address] DO Work Phone: Tobacco Screening. Yes [place] [address] DO Work Phone: C-1 Esterase Inhibitor Total , Serumon 01-18-2021 Complement C1 esterase inhibitor [Mass/Vol] 37 mg/dL 21-39 [place] [address] DO Work Phone: [phone] C1 Esterase Inhibitor, Funct ionalon 01-18-2021 Complement C1 esterase inhibitor.functional/Co mplement C1 esterase inhibitor.total [Mass fraction] >91 [place] [address] DO Work Phone: Comment on above: Abnormal <41 Equivoc al 41 - 67 Normal >67 C4 Complement, Serumon 01-18 Complement C4 [Mass/Vol] 35 mg/dL 10 - 50 [place] [address] DO Work Phone: Laboratory - Chemistry and C hemistry - challengeon 01-18-2021 Albumin BCP dye [Mass/Vol] 4.6 g/dL 3.4 - 5.0 [place] [address] DO Work Phone: ALP [Catalytic activity/Vol] 91 U/L 33 - 136 [place] [address] DO Work Phone: ALT With P-5'-P [Catalytic activity/Vol] 24 U/L 10 - 52 [place] [address] DO Work Phone: Comment on above: Patients treated wit h Sulfasalazine may generate falsely decreased results for ALT. Anion gap [Moles/Vol] 17 mmol/L 10 - 20 [place] [address] DO Work Phone: AST With P-5'-P [Catalytic activity/Vol] 13 U/L 9 - 39 [place] [address] DO Work Phone: Bilirubin [Mass/Vol] 1.2 mg/dL 0.0 - 1.2 MP-U [place] [address] DO Work Phone: Calcium [Mass/Vol] 10.0 mg/dL 8.6 - 10.6 -[place] [address] DO Work Phone: Chloride [Moles/Vol] 98 mmol/L 98 - 107 MP-U [place] [address] DO Work Phone: CO2 [Moles/Vol] 28 mmol/L 21 - 32 [place] [address] DO Work Phone: [phone] Creatinine [Mass/Vol] 1.11 mg/dL See Below [place] [address] DO Work Phone: Comment on above: Reference Range: 0.5 0 - 1.30 Glucose [Mass/Vol] 92 mg/dL 74 - 99 [place] [address] DO Work Phone: IgA [Mass/Vol] 165 mg/dL 70 - 400 [place] [address] DO Work Phone: Comment on above: MONOCLONAL PROTEINS MAY CAUSE FALSELY LOWRESULTS IN THIS ASSAY. SERUM PROTEINELECTROPHORESIS SHOULD BE DONE THEFIRST TEST TO EVALUATE MONOCLONAL GAMMOPATHY. IgG [Mass/Vol] 1230 mg/dL 700 - 1600 [place] [address] DO Work Phone: Comment on above: MONOCLONAL PROTEINS MAY CAUSE FALSELY LOWRESULTS IN THIS ASSAY. SERUM PROTEINELECTROPHORESIS SHOULD BE DONE THEFIRST TEST TO EVALUATE MONOCLONAL GAMMOPATHY. IgM [Mass/Vol] 95 mg/dL 40 - 230 [place] [address] DO Work Phone: Comment on above: MONOCLONAL PROTEINS MAY CAUSE FALSELY LOWRESULTS IN THIS ASSAY. SERUM PROTEINELECTROPHORESIS SHOULD BE DONE THEFIRST TEST TO EVALUATE MONOCLONAL GAMMOPATHY. Potassium [Moles/Vol] 4.3 mmol/L 3.5 - 5.3 [place] [address] DO Work Phone: Sodium [Moles/Vol] 139 mmol/L 136 - 145 [place] [address] DO Work Phone: Urea nitrogen [Mass/Vol] 15 mg/dL 6 - 23 [place] [address] DO Work Phone: Laboratory - Hematology and Cell countson 01-18-2021 Granulocytes/100 WBC (Bld) 82 % [place] [address] DO Work Phone: Lymphocytes/100 WBC (Bld) 11 % [place] [address] DO Work Phone: Monocytes/100 WBC (Bld) 4 % M -[place] [address] DO Work Phone: No Panel Informationon 01-18 RAMYA [place] [address] DO Work Phone: Comment on above: By her/his signature above, the Pathologist listed as making the final interpretation certifies that she/he has personally reviewed this case. ACUTE PANEL [place] [address] DO Work Phone: WHOLE BLD-EDTA [place] [address] DO Work Phone: SEE BELOW [place] [address] DO Work Phone: Comment on above: This test is a multi color, whole blood lysis assay. It was developed and its performance characteristics determined by the Department of Pathology, [facility], and has not been cleared or approved [...] CD13, CD5, CD2, CD177, CD163, CD11b, CD16, Gackle, Lambda, CD9, CD22. No increased or abno rmal myeloblast population detected.No immunophenotypic abnormalities of monocytes or granulocytes.No immunophenotypic evidence of a lymphoproliferative disorder. 18 {%_of_Lymph} [place] [address] DO Work Phone: Comment on above: PolyclonalKappa/Varela da= 58:42 13 {%_of_Lymph} [place] [address] DO Work Phone: 53 {%_of_Lymph} MP-Urolog y- [facility] 232 DO Work Phone: [phone] 100,000 MP-Urology- [facility] 232 DO Work Phone: [phone] 12.85 {x10E9/L} MP-Urolog y- [facility] 232 DO Work Phone: [phone] Acceptable MP-Urology- [facility] 232 DO Work Phone: [phone] Comment on above: Flow cytometry resul ts should be interpreted in the context of morphology. Flow cytometry findings may be unreliable due to sampling issues, differential loss or recovery of cell populations ex vivo, or low viability. Peripheral Blood -Urolo gy- [facility] 232 DO Work Phone: [phone] 1.27 1 See Below [facility] 232 DO Work Phone: [phone] Comment on above: Reference Range: 0.2 6 [...] the testing laboratory. 1.50 mg/dL See Below [facility]ITALUrologyMark [facility] [address] DO Work Phone: [phone] Comment on above: Reference Range: 0.5 7 - 2.63 1.91 mg/dL See Below [facility] 232 DO Work Phone: [phone] Comment on above: Reference Range: 0.3 3 - 1.94 >60 >60 -UrologyMark [place] [address] DO Work Phone: Comment on above: CALCULATIONS OF LILI MATED GFR ARE PERFORMED USING THE MDRD STUDY EQUATION FOR THE IDMS-TRACEABLE CREATININE METHODS. CLIN CHEM 2007;53:766-72 PROTEIN ELECTROPHORESIS,SERU 01-18-2021 Albumin [Mass/Vol] 4.4 g/dL 3.4 - 5.0 -Uro logy- [facility] 232 DO Work Phone: Protein [Mass/Vol] 7.5 g/dL 6.4 - 8.2 [facility]ITAL[facility] logAmanda [place] [address] DO Work Phone: [phone] PROTEIN ELECTROPHORESIS,SERUM NORMAL [place] [address] DO Work Phone: [phone] PROTEIN ELECTROPHORESIS,SERUM 1.1 g/dL 0.5 - 1.4 [place] [address] DO Work Phone: PROTEIN ELECTROPHORESIS,SERUM 0.8 g/dL 0.5 - 1.2 [place] [address] DO Work Phone: [phone] PROTEIN ELECTROPHORESIS,SERUM 0.9 g/dL 0.4 - 1.1 [place] [address] DO Work Phone: PROTEIN ELECTROPHORESIS,SERUM 0.3 g/dL 0.2 - 0.6 [place] [address] DO Work Phone: Path Review Blake 01-18-2021 Path Review JOSE SHEETS [place] [address] DO Work Phone: Comment on above: By her/his signature above, the Pathologist listed as making the final interpretation certifies that she/he has personally reviewed this case. C Reactive Protein, Serumon 12-28-2020 CRP [Mass/Vol] 0.12 mg/dL [place] [address] DO Work Phone: Comment on above: REF VALUE< 1.00 C-1 Esterase Inhibitor Total , Serumon 12-28-2020 Complement C1 esterase inhibitor [Mass/Vol] 31 mg/dL 21-39 [place] [address] DO Work Phone: C1 Esterase Inhibitor, Funct ionalon 12-28-2020 Complement C1 esterase inhibitor.functional/Co mplement C1 esterase inhibitor.total [Mass fraction] 84 {%mean_normal} [place] [address] DO Work Phone: Comment on above: Abnormal <41 Equivoc al 41 - 67 Normal >67 C4 Complement, Serumon 12-28 Complement C4 [Mass/Vol] 25 mg/dL 10 - 50 [facility] 232 DO Work Phone: [phone] Complete Blood Count + Diffe rentialon 12-28-2020 Basophils/100 WBC (Bld) 0.1 % 0.0 - 2.0 [place] [address] DO Work Phone: [phone] Erythrocyte distribution width (RBC) [Ratio] 13.7 % See Below [place] [address] DO Work Phone: [phone] Comment on above: Reference Range: 11. 5 - 14.5 Hematocrit (Bld) [Volume fraction] 48.7 % See Below [place] [address] DO Work Phone: [phone] Comment on above: Reference Range: 41. 0 - 52.0 Hemoglobin (Bld) [Mass/Vol] 16.3 g/dL See Below [place] [address] DO Work Phone: [phone] Comment on above: Reference Range: 13. 5 - 17.5 Lymphocytes/100 WBC (Bld) 12.8 % See Below [place] [address] DO Work Phone: Comment on above: Reference Range: 13. 0 - 44.0 MCHC (RBC) [Mass/Vol] 33.5 g/dL See Below [place] [address] DO Work Phone: [phone] Comment on above: Reference Range: 32. 0 - 36.0 MCV (RBC) [Entitic vol] 99 fL 80 - 100 [place] [address] DO Work Phone: Monocytes/100 WBC (Bld) 3.1 % 2.0 - 10.0 M [place] [address] DO Work Phone: Neutrophils/100 WBC (Bld) 83.2 % See Below [place] [address] DO Work Phone: Comment on above: Reference Range: 40. 0 - 80.0 Platelets (Bld) [#/Vol] 151 10*3/uL 150 - 450 [place] [address] DO Work Phone: RBC (Bld) [#/Vol] 4.94 {x10E12/L} See Below [place] [address] DO Work Phone: Comment on above: Reference Range: 4.5 0 - 5.90 WBC (Bld) [#/Vol] 7.4 10*3/uL 4.4 - 11.3 [place] [address] DO Work Phone: [phone] Complete Blood Count + Differential 0.7 % 0.0 - 0.9 [place] [address] DO Work Phone: [phone] Comment on above: Immature Granulocyte Count (IG) includes promyelocytes, myelocytes and metamyelocytes but does not include bands. Percent differential counts (%) should be interpreted in the context of the absolute cell counts (cells/L). Complete Blood Count + Differential 0.01 {x10E9/L} See Below [place] [address] DO Work Phone: [phone] Comment on above: Reference Range: 0.0 0 - 0.10 Reference Range: 0.0 0 - 0.70 Complete Blood Count + Differential 0.23 {x10E9/L} See Below [place] [address] DO Work Phone: [phone] Comment on above: Reference Range: 0.1 0 - 1.00 Complete Blood Count + Differential 0.95 {x10E9/L} below low threshold See Below [place] [address] DO Work Phone: [phone] Comment on above: Reference Range: 1.2 0 - 4.80 Complete Blood Count + Differential 6.17 {x10E9/L} See Below [place] [address] DO Work Phone: [phone] Comment on above: Reference Range: 1.2 0 - 7.70 Complete Blood Count + Differential 0.1 % 0.0 - 6.0 [place] [address] DO Work Phone: Ferritin, Serumon 12-28-2020 Ferritin [Mass/Vol] 360 ug/L above high threshold 20 - 300 [facility]ITALUrologyMark [facility] [address] DO Work Phone: Fibrinogen Assayon Fibrinogen Assay 330 mg/dL 200 - 400 [facility] gyMark [place] [address] DO Work Phone: Immunoglobulin E Level, Seru mon 12-28-2020 IgE Qn 388 {IU/mL} above high threshold 0 - 214 [facility]ITALUrologyMark [facility]ille [address] DO Work Phone: Laboratory - Chemistry and C hemistry - challengeon 12-28-2020 Albumin BCP dye [Mass/Vol] 4.6 g/dL 3.4 - 5.0 [facility]ITALUrologyMark [place] [address] DO Work Phone: ALP [Catalytic activity/Vol] 54 U/L 33 - 136 [facility] [place] [address] DO Work Phone: ALT With P-5'-P [Catalytic activity/Vol] 24 U/L 10 - 52 [facility] [place] [place] [address] DO Work Phone: Comment on above: Patients treated wit h Sulfasalazine may generate falsely decreased results for ALT. Anion gap [Moles/Vol] 13 mmol/L 10 - 20 [place] [address] DO Work Phone: AST With P-5'-P [Catalytic activity/Vol] 17 U/L 9 - 39 [facility]ITALUrologyMark [facility] [address] DO Work Phone: Bilirubin [Mass/Vol] 0.7 mg/dL 0.0 - 1.2 [facility] cent[facility]Mark [facility] [address] DO Work Phone: Calcium [Mass/Vol] 9.6 mg/dL 8.6 - 10.3 -Uro logyMark [place] [address] DO Work Phone: Chloride [Moles/Vol] 104 mmol/L 98 - 107 MP-U [place] [address] DO Work Phone: CO2 [Moles/Vol] 27 mmol/L 21 - 32 [place] [address] DO Work Phone: [phone] Creatinine [Mass/Vol] 0.99 mg/dL See Below [place] [address] DO Work Phone: [phone] Comment on above: Reference Range: 0.5 0 - 1.30 Glucose [Mass/Vol] 117 mg/dL above high threshold 74 - 99 [place] [address] DO Work Phone: IgA [Mass/Vol] 154 mg/dL 70 - 400 [place] [address] DO Work Phone: [phone] Comment on above: MONOCLONAL PROTEINS MAY CAUSE FALSELY LOWRESULTS IN THIS ASSAY. SERUM PROTEINELECTROPHORESIS SHOULD BE DONE THEFIRST TEST TO EVALUATE MONOCLONAL GAMMOPATHY. IgG [Mass/Vol] 1120 mg/dL 700 - 1600 [place] [address] DO Work Phone: [phone] Comment on above: MONOCLONAL PROTEINS MAY CAUSE FALSELY LOWRESULTS IN THIS ASSAY. SERUM PROTEINELECTROPHORESIS SHOULD BE DONE THEFIRST TEST TO EVALUATE MONOCLONAL GAMMOPATHY. IgM [Mass/Vol] 91 mg/dL 40 - 230 [place] [address] DO Work Phone: [phone] Comment on above: MONOCLONAL PROTEINS MAY CAUSE FALSELY LOWRESULTS IN THIS ASSAY. SERUM PROTEINELECTROPHORESIS SHOULD BE DONE THEFIRST TEST TO EVALUATE MONOCLONAL GAMMOPATHY. Iron [Mass/Vol] 80 ug/dL 35 - 150 [place] [address] DO Work Phone: Iron binding capacity [Mass/Vol] 391 ug/dL 240 - 445 [place] [address] DO Work Phone: LDH [Catalytic activity/Vol] 155 U/L 84 - 246 [place] [address] DO Work Phone: Potassium [Moles/Vol] 4.3 mmol/L 3.5 - 5.3 [place] [address] DO Work Phone: Sodium [Moles/Vol] 140 mmol/L 136 - 145 -[place] [address] DO Work Phone: Thyroglobulin [Mass/Vol] Not Applicable 1.3-31.8 [place] [address] DO Work Phone: Comment on above: INTERPRETIVE INFORMA TION: Thyroglobulin by LC-MS/MS, Serum/PlasmaLower limit of detection for Thyroglobulin by LC-MS/MS is 0.5 ng/mL.This test was developed and its performance characteristics determined by [email or web address]. It has not been cleared or approved by the US Food and Drug Administration. This test was performed in a CLIA certified laboratory and is intended for clinical purposes.Performed By: [email or web address] [place] [id number] Director: Jazlyn Lau MD Thyroglobulin [Mass/Vol] <0.1 below low threshold 1.3-31.8 [place] [address] DO Work Phone: Comment on above: INTERPRETIVE INFORMA TION: Thyroglobulin, Serum or PlasmaSpecimens negative for thyroglobulin antibodies (TgAb) are tested for thyroglobulin (Tg) by chemiluminescent immunoassay (MERY) using the Dre Matthew Access DxI method. Specimens with TgAb results [...] nitrogen [Mass/Vol] 20 mg/dL 6 - 23 [place] [address] DO Work Phone: Laboratory - Coagulationon 02-28-2020 aPTT Coag (PPP) [Time] 23 s below low threshold 25 - 35 [place] [address] DO Work Phone: Comment on above: THE APTT IS NO LONGE R USED FOR MONITORING UNFRACTIONATED HEPARIN THERAPY. FOR MONITORING HEPARIN THERAPY, USE THE HEPARIN ASSAY. Fibrin D-dimer DDU (PPP) [Mass/Vol] 462 {ng/mL_FEU} = 500 [place] [address] DO Work Phone: Comment on above: THE D-DIMER ASSAY IS REPORTED IN NG/ML FIBRINOGEN EQUIVALENT UNITS (FEU).THE RESULTS OF THIS ASSAY SHOULD NOT BE USED FOR THE EXCLUSION OF DEEP VEIN THROMBOSIS AND/OR PULMONARY EMBOLISM. INR Coag (PPP) [Relative time] 0.9 {INR} 0.9 - 1.1 [place] [address] DO Work Phone: PT Coag (PPP) [Time] 10.8 s See Below MP-U [place] [address] DO Work Phone: Comment on above: Reference Range: 10. 1 - 13.3 Laboratory - Serology - non- microon 12-28-2020 Centromere protein B Ab Qn (S) <0.2 [place] [address] DO Work Phone: Comment on above: REF VALUES < 1.0 = N EGATIVE >=1.0 = POSITIVE Chromatin Ab Qn <0.2 [place] [address] DO Work Phone: Comment on above: REF VALUES < 1.0 = N EGATIVE >=1.0 = POSITIVE DNA double strand Ab Qn (S) [IU]/mL [place] [address] DO Work Phone: Comment on above: REF VALUESNEGATIVE: <= 4 IU/MLEQUIVOCAL: 5- 9 IU/MLPOSITIVE: >=10 IU/ML Medina-1 extractable nuclear Ab IA Ql (S) <0.2 [place] [address] DO Work Phone: Comment on above: REF VALUES < 1.0 = N EGATIVE >=1.0 = POSITIVE Nuclear Ab Hep2 substrate Ql (S) Positive Abnormal NEGATIVE [place] [address] DO Work Phone: Comment on above: The Antinuclear Anti body (SHI) test was performed using indirect immunofluorescence assay with HEp-2 cells slide. Nuclear Ab IF (S) [Titer] 1:160 [place] [address] DO Work Phone: Nuclear Ab pattern (S) [Interp] NUCLEOLAR [place] [address] DO Work Phone: Ribonucleoprotein extractable nuclear Ab IA Qn (S) <0.2 [place] [address] DO Work Phone: Comment on above: REF VALUES < 1.0 = N EGATIVE >=1.0 = POSITIVE Ribosomal P Ab Qn (S) <0.2 [place] [address] DO Work Phone: Comment on above: REF VALUES < 1.0 = N EGATIVE >=1.0 = POSITIVE SCL-70 extractable nuclear Ab IA Ql (S) <0.2 [place] [address] DO Work Phone: Comment on above: REF VALUES < 1.0 = N EGATIVE >=1.0 = POSITIVE Sjogrens syndrome-A extractable nuclear Ab IA Qn (S) <0.2 [place] [address] DO Work Phone: Comment on above: REF VALUES < 1.0 = N EGATIVE >=1.0 = POSITIVE Sjogrens syndrome-B extractable nuclear Ab IA Qn (S) 0.3 {AI} [place] [address] DO Work Phone: Comment on above: REF VALUES < 1.0 = N EGATIVE >=1.0 = POSITIVE Mojica extractable nuclear Ab IA Qn (S) <0.2 [place] [address] DO Work Phone: Comment on above: REF VALUES < 1.0 = N EGATIVE >=1.0 = POSITIVE Mojica extractable nuclear Ab+Ribonucleoprotein extractable nuclear Ab IA Ql (S) <0.2 [place] [address] DO Work Phone: Comment on above: REF VALUES < 1.0 = N EGATIVE >=1.0 = POSITIVE Thyroglobulin Ab Qn [IU]/mL 0.0-4.0 [place] [address] DO Work Phone: Comment on above: INTERPRETIVE INFORMA TION: Thyroglobulin Antibody A value of 4.0 IU/mL or less indicates a negative result for thyroglobulin antibodies.The Thyroglobulin Antibody assay is being performed using the Dre Outright Access DxI method. MISCELLANEOUS TESTon 021 MISCELLANEOUS TEST Canceled -Uro [facility] 232 DO Work Phone: No Panel Informationon 12-28 1.11 1 See Below [facility]ITALUrology[facility] 232 DO Work Phone: Comment on above: [...] the testing laboratory. 1.49 mg/dL See Below [facility]ITALUrologWis[facility] 232 DO Work Phone: Comment on above: Reference Range: 0.5 7 - 2.63 1.66 mg/dL See Below [facility] 232 DO Work Phone: Comment on above: Reference Range: 0.3 3 - 1.94 20 % below low threshold 25 - 45 [facility] 232 DO Work Phone: >60 >60 [facility] 232 DO Work Phone: Comment on above: CALCULATIONS OF LILI MATED GFR ARE PERFORMED USING THE MDRD STUDY EQUATION FOR THE IDMS-TRACEABLE CREATININE METHODS. CLIN CHEM 2007;53:766-72 PROTEIN ELECTROPHORESIS,SERU 12-28-2020 Albumin [Mass/Vol] 4.6 g/dL 3.4 - 5.0 -Uro [facility] 232 DO Work Phone: Protein [Mass/Vol] 7.4 g/dL 6.4 - 8.2 -Uro [facility] 232 DO Work Phone: PROTEIN ELECTROPHORESIS,SERUM NORMAL [place] [address] DO Work Phone: PROTEIN ELECTROPHORESIS,SERUM 1.0 g/dL 0.5 - 1.4 [place] [address] DO Work Phone: PROTEIN ELECTROPHORESIS,SERUM 0.8 g/dL 0.5 - 1.2 [place] [address] DO Work Phone: PROTEIN ELECTROPHORESIS,SERUM 0.7 g/dL 0.4 - 1.1 [place] [address] DO Work Phone: PROTEIN ELECTROPHORESIS,SERUM 0.3 g/dL 0.2 - 0.6 [place] [address] DO Work Phone: Path Review SPEon 12-28-2020 Path Review JOSE SHEETS [place] [address] DO Work Phone: Comment on above: By her/his signature above, the Pathologist listed as making the final interpretation certifies that she/he has personally reviewed this case. Prostate Specific Antigenon 12-28-2020 Prostate specific Ag [Mass/Vol] 0.37 ng/mL See Below [place] [address] DO Work Phone: Comment on above: Reference Range: 0.0 0 - 4.00The FDA requires that the method used for PSA assay be reported to the physician. Values obtained with different assay methods must not be used interchangeably. This test was performed at [facility] using the HeyAnita PSA method, which is a sandwich immunoassay using chemiluminescence for quantitation. The assay is approvedfor measurement of prostate-specific antigen (PSA) in serum and may be used in conjunction with a digital rectalexamination in men 50 years and older as an aid in detection of prostate cancer. 1-Puift-ikjodgrnk inhibitors (e.g. Proscar, Finasteride, Avodart, Dutasteride and Nazia) for the treatment of BPH have been shown to lower PSA levels by an average of 50% after 6 months of treatment. Reticulocyte Counton 021 Reticulocyte Count 39 pg above high threshold 28 - 38 [place] [address] DO Work Phone: [phone] Reticulocyte Count 10.2 % 0.0 - 16.0 -Uro [place] [address] DO Work Phone: [phone] Reticulocyte Count 0.063 {x10E12/L} See Below [place] [address] DO Work Phone: [phone] Comment on above: Reference Range: 0.0 22 - 0.118 Reticulocyte Count 1.3 % 0.5 - 2.0 [facility] [place] [address] DO Work Phone: [phone] Sedimentation Rate, Erythroc yteon 12-28-2020 ESR (Bld) [Velocity] 12 mm/h 0 - 20 MP-U [place] [address] DO Work Phone: T4 - Free Thyroxine, Serumon 12-28-2020 Free T4 [Mass/Vol] 1.76 ng/dL above high threshold See Below [place] [address] DO Work Phone: Comment on above: Reference Range: 0.7 8 - 1.48 Thyroxine Free testing is performed using different testing methodology at [facility] than at other [facility] hospitals. Direct result comparisons should only be made within the same method. TSH - Thyroid Stimulating Ho rmone, Serumon 12-28-2020 TSH Qn 1.32 m[IU]/L See Below [place] [address] DO Work Phone: [phone] Comment on above: Reference Range: 0.4 4 - 3.98 TSH testing is performed using different testing methodology at [facility] than at other system [facility]. Direct result comparisons should only be made within the same method. Triiodothyronine, Level (T3) on 12-28-2020 T3 [Mass/Vol] 113 ng/dL 60 - 200 [place] [address] DO Work Phone: [phone] Influenza virus A and B and SARS-CoV-2 (COVID-19) Ag panel - Upper respiratory specim SARS-CoV-2 (COVID-19) RNA YOLY+probe Ql (Resp) [facility] Work Phone: RSV Ag EIA RSV Ag Immune stain Ql (Tiss) [facility] Work Phone: Vital Signs Date Time Vital Sign Value Performing Clinician Facility 09-07-2024 15:34-0400 Body mass index (BMI) [Ratio] 29.9 kg/m2 Dr. Biju Lobo DO Work Phone: [facility] 09-07-2024 14:37-0400 Heart rate 80 /min Dr. Biju Lobo DO Work Phone: [facility] 09-07-2024 14:37-0400 SaO2% (BldA) [Mass fraction] 91 % Dr. Biju Lobo DO Work Phone: [facility] 09-07-2024 14:23-0400 Body height 175.[address] Biju Lobo DO Work Phone: [facility] 09-07-2024 14:23-0400 Body weight 92.[address] Biju Lobo DO Work Phone: [facility] 09-07-2024 14:12-0400 Diastolic blood pressure 83 mm[Hg] Dr. Biju Lobo DO Work Phone: [facility] 09-07-2024 14:12-0400 Systolic blood pressure 126 mm[Hg] Dr. Biju Lobo DO Work Phone: [facility] 09-02-2024 08:43-0400 Body mass index (BMI) [Ratio] 30.2 kg/m2 Dr. Biju Lobo DO Work Phone: [facility] 09-02-2024 08:43-0400 Body temperature 97.6 [degF] Dr. Biju Lobo DO Work Phone: [facility] 09-02-2024 08:43-0400 Body weight 92.[address] Biju Lobo DO Work Phone: [facility] 09-02-2024 08:43-0400 Diastolic blood pressure 84 mm[Hg] Dr. Biju Lobo DO Work Phone: [facility] 09-02-2024 08:43-0400 Heart rate 74 /min Dr. Biju Lobo DO Work Phone: [facility] 09-02-2024 08:43-0400 Respiratory rate 20 /min Dr. Biju Lobo DO Work Phone: [facility] 09-02-2024 08:43-0400 SaO2% (BldA) [Mass fraction] 94 % Dr. Biju Lobo DO Work Phone: [facility] 09-02-2024 08:43-0400 Systolic blood pressure 120 mm[Hg] Dr. Biju Lobo DO Work Phone: [facility] 07-23-2024 17:26-0400 Diastolic blood pressure 76 mm[Hg] Dr. Biju Lobo DO Work Phone: [facility] 07-23-2024 17:26-0400 Systolic blood pressure 106 mm[Hg] Dr. Biju Lobo DO Work Phone: [facility] 07-23-2024 11:41-0400 Body temperature 98.6 [degF] Dr. Biju Lobo DO Work Phone: [facility] 07-23-2024 11:41-0400 Body weight 92.[address] Biju Lobo DO Work Phone: [facility] 07-23-2024 11:41-0400 Diastolic blood pressure 81 mm[Hg] Dr. Biju Lobo DO Work Phone: [facility] 07-23-2024 11:41-0400 Heart rate 85 /min Dr. Biju Lobo DO Work Phone: [facility] 07-23-2024 11:41-0400 Respiratory rate 17 /min Dr. Biju Lobo DO Work Phone: [facility] 07-23-2024 11:41-0400 SaO2% (BldA) [Mass fraction] 94 % Dr. Biju Lobo DO Work Phone: [facility] 07-23-2024 11:41-0400 Systolic blood pressure 130 mm[Hg] Dr. Biju Lobo DO Work Phone: [facility] 07-15-2024 08:22-0400 Body mass index (BMI) [Ratio] 29.9 kg/m2 Dr. Biju Lobo DO Work Phone: [facility] 07-15-2024 08:22-0400 Body temperature 97.8 [degF] Dr. Biju Lobo DO Work Phone: [facility] 07-15-2024 08:22-0400 Body weight 92.[address] Biju Lobo DO Work Phone: [facility] 07-15-2024 08:22-0400 Diastolic blood pressure 83 mm[Hg] Dr. Biju Lobo DO Work Phone: [facility] 07-15-2024 08:22-0400 Heart rate 78 /min Dr. Biju Lobo DO Work Phone: [facility] 07-15-2024 08:22-0400 Respiratory rate 20 /min Dr. Biju Lobo DO Work Phone: [facility] 07-15-2024 08:22-0400 SaO2% (BldA) [Mass fraction] 94 % Dr. Biju Lobo DO Work Phone: [facility] 07-15-2024 08:22-0400 Systolic blood pressure 126 mm[Hg] Dr. Biju Lobo DO Work Phone: [facility] 07-02-2024 12:51-0400 Body height 175.[address] Biju Lobo DO Work Phone: [facility] 07-02-2024 12:51-0400 Body weight 90.[address] Biju Lobo DO Work Phone: [facility] 07-02-2024 12:51-0400 Heart rate 85 /min Dr. Biju Lobo DO Work Phone: [facility] 07-02-2024 12:51-0400 SaO2% (BldA) [Mass fraction] 91 % Dr. Biju Lobo DO Work Phone: [facility] 06-24-2024 10:59-0400 Body height 175.3 cm Hemant Galvan MD Work Phone: [facility] 06-24-2024 10:59-0400 Body mass index (BMI) [Ratio] 30.42 kg/m2 Hemant Galvan MD Work Phone: [facility] 06-24-2024 10:59-0400 Body weight 93.44 kg Hemant Galvan MD Work Phone: [facility] 06-24-2024 10:59-0400 Diastolic blood pressure 69 mm[Hg] Hemant Galvan MD Work Phone: [facility] 06-24-2024 10:59-0400 Heart rate 80 /min Hemant Galvan MD Work Phone: [facility] 06-24-2024 10:59-0400 Respiratory rate 18 /min Hemant Galvan MD Work Phone: [facility] 06-24-2024 10:59-0400 SaO2% (BldA) [Mass fraction] 94 % Hemant Galvan MD Work Phone: [facility] 06-24-2024 10:59-0400 Systolic blood pressure 112 mm[Hg] Hemant Galvan MD Work Phone: [facility] 05-27-2024 08:22-0400 Body height 175.[address] Biju Lobo DO Work Phone: [facility] 05-27-2024 08:22-0400 Body mass index (BMI) [Ratio] 29 kg/m2 Dr. Biju Lobo DO Work Phone: [facility] 05-27-2024 08:22-0400 Body temperature 97.5 [degF] Dr. Biju Lobo DO Work Phone: [facility] 05-27-2024 08:22-0400 Body weight 89.[address] Biju Lobo DO Work Phone: [facility] 05-27-2024 08:22-0400 Diastolic blood pressure 82 mm[Hg] Dr. Biju Lobo DO Work Phone: [facility] 05-27-2024 08:22-0400 Heart rate 78 /min Dr. Bjiu Lobo DO Work Phone: [facility] 05-27-2024 08:22-0400 Respiratory rate 18 /min Dr. Biju Lobo DO Work Phone: [facility] 05-27-2024 08:22-0400 SaO2% (BldA) [Mass fraction] 98 % Dr. Biju Lobo DO Work Phone: [facility] 05-27-2024 08:22-0400 Systolic blood pressure 121 mm[Hg] Dr. Biju Lobo DO Work Phone: [facility] 05-26-2024 13:30-0400 Diastolic blood pressure 64 mm[Hg] Dr. Biju Lobo DO Work Phone: [facility] 05-26-2024 13:30-0400 Heart rate 86 /min Dr. Biju Lobo DO Work Phone: [facility] 05-26-2024 13:30-0400 Systolic blood pressure 89 mm[Hg] Dr. Biju Lobo DO Work Phone: [facility] 05-26-2024 13:02-0400 Body mass index (BMI) [Ratio] 29.3 kg/m2 Dr. Biju Lobo DO Work Phone: [facility] 05-26-2024 13:02-0400 Body temperature 98.2 [degF] Dr. Biju Lobo DO Work Phone: [facility] 05-26-2024 13:02-0400 Body weight 90.[address] Biju Lobo DO Work Phone: [facility] 05-26-2024 13:02-0400 Respiratory rate 16 /min Dr. Biju Lobo DO Work Phone: [facility] 05-26-2024 13:02-0400 SaO2% (BldA) [Mass fraction] 93 % Dr. Biju Lobo DO Work Phone: [facility] 04-15-2024 09:07-0500 Body mass index (BMI) [Ratio] 28.9 kg/m2 Dr. Biju Lobo DO Work Phone: [facility] 04-15-2024 09:07-0500 Body temperature 97.2 [degF] Dr. Biju Lobo DO Work Phone: [facility] 04-15-2024 09:07-0500 Body weight 88.[address] Biju Lobo DO Work Phone: [facility] 04-15-2024 09:07-0500 Diastolic blood pressure 84 mm[Hg] Dr. Biju Lobo DO Work Phone: [facility] 04-15-2024 09:07-0500 Heart rate 87 /min Dr. Biju Lobo DO Work Phone: [facility] 04-15-2024 09:07-0500 Respiratory rate 18 /min Dr. Biju Lobo DO Work Phone: [facility] 04-15-2024 09:07-0500 SaO2% (BldA) [Mass fraction] 96 % Dr. Biju Lobo DO Work Phone: [facility] 04-15-2024 09:07-0500 Systolic blood pressure 125 mm[Hg] Dr. Biju Lobo DO Work Phone: [facility] 04-01-2024 08:41-0500 Body mass index (BMI) [Ratio] 29.9 kg/m2 Dr. Biju Lobo DO Work Phone: [facility] 04-01-2024 08:41-0500 Body weight 92.[address] Biju Lobo DO Work Phone: [facility] 04-01-2024 08:41-0500 Diastolic blood pressure 62 mm[Hg] Dr. Biju Lobo DO Work Phone: [facility] 04-01-2024 08:41-0500 Heart rate 91 /min Dr. Biju Lobo DO Work Phone: [facility] 04-01-2024 08:41-0500 Respiratory rate 18 /min Dr. Biju Lobo DO Work Phone: [facility] 04-01-2024 08:41-0500 Systolic blood pressure 93 mm[Hg] Dr. Biju Lobo DO Work Phone: [facility] 03-25-2024 10:56-0500 Body height 175.3 cm Hemant Galvan MD Work Phone: [facility] 03-25-2024 10:56-0500 Body mass index (BMI) [Ratio] 28.65 kg/m2 Hemant Galvan MD Work Phone: [facility] 03-25-2024 10:56-0500 Body temperature 98.1 [degF] Hemant Galvan MD Work Phone: [facility] 03-25-2024 10:56-0500 Body weight 88 kg Hemant Galvan MD Work Phone: [facility] 03-25-2024 10:56-0500 Diastolic blood pressure 57 mm[Hg] Hemant Galvan MD Work Phone: [facility] 03-25-2024 10:56-0500 Heart rate 91 /min Hemant Galvan MD Work Phone: [facility] 03-25-2024 10:56-0500 Respiratory rate 16 /min Hemant Galvan MD Work Phone: [facility] 03-25-2024 10:56-0500 SaO2% (BldA) [Mass fraction] 94 % Hemant Galvan MD Work Phone: [facility] 03-25-2024 10:56-0500 Systolic blood pressure 91 mm[Hg] Hemant Galvan MD Work Phone: [facility] 03-16-2024 13:57-0500 Diastolic blood pressure 62 mm[Hg] Dr. Biju Lobo DO Work Phone: [facility] 03-16-2024 13:57-0500 Systolic blood pressure 86 mm[Hg] Dr. Biju Lobo DO Work Phone: [facility] 03-16-2024 11:35-0500 Body height 175.[address] Biju Lobo DO Work Phone: [facility] 03-16-2024 11:35-0500 Body mass index (BMI) [Ratio] 27.8 kg/m2 Dr. Biju Lobo DO Work Phone: [facility] 03-16-2024 11:35-0500 Body temperature 98.4 [degF] Dr. Biju Lobo DO Work Phone: [facility] 03-16-2024 11:35-0500 Body weight 85.[address] Biju Lobo DO Work Phone: [facility] 03-16-2024 11:35-0500 Heart rate 87 /min Dr. Biju Lobo DO Work Phone: [facility] 03-16-2024 11:35-0500 Respiratory rate 16 /min Dr. Biju Lobo DO Work Phone: [facility] 03-16-2024 11:35-0500 SaO2% (BldA) [Mass fraction] 98 % Dr. Biju Lobo DO Work Phone: [facility] 03-08-2024 17:48-0500 Body temperature 97.5 [degF] Dr. Biju Lobo DO Work Phone: [facility] 03-08-2024 17:48-0500 Diastolic blood pressure 95 mm[Hg] Dr. Biju Lobo DO Work Phone: [facility] 03-08-2024 17:48-0500 Heart rate 89 /min Dr. Biju Lobo DO Work Phone: [facility] 03-08-2024 17:48-0500 Respiratory rate 24 /min Dr. Biju Lobo DO Work Phone: [facility] 03-08-2024 17:48-0500 SaO2% (BldA) [Mass fraction] 93 % Dr. Biju Lobo DO Work Phone: [facility] 03-08-2024 17:48-0500 Systolic blood pressure 138 mm[Hg] Dr. Biju Lobo DO Work Phone: [facility] 03-08-2024 15:47-0500 Inhaled oxygen flow rate 3 L/min Dr. Biju Lobo DO Work Phone: [facility] 03-08-2024 15:26-0500 Body mass index (BMI) [Ratio] 28.2 kg/m2 Dr. Biju Lobo DO Work Phone: [facility] 03-08-2024 15:26-0500 Body weight 86.[address] Biju Lobo DO Work Phone: [facility] 12-27-2023 10:57-0500 Body height 175.3 cm Hemant Galvan MD Work Phone: [facility] 12-27-2023 10:57-0500 Body mass index (BMI) [Ratio] 27.47 kg/m2 Hemant Galvan MD Work Phone: [facility] 12-27-2023 10:57-0500 Body temperature 98.29 [degF] Hemant Galvan MD Work Phone: [facility] 12-27-2023 10:57-0500 Body weight 84.37 kg Hemant Galvan MD Work Phone: [facility] 12-27-2023 10:57-0500 Diastolic blood pressure 75 mm[Hg] Hemant Galvan MD Work Phone: [facility] 12-27-2023 10:57-0500 Heart rate 74 /min Hemant Galvan MD Work Phone: [facility] 12-27-2023 10:57-0500 Respiratory rate 16 /min Hemant Galvan MD Work Phone: [facility] 12-27-2023 10:57-0500 SaO2% (BldA) [Mass fraction] 95 % Hemant Galvan MD Work Phone: [facility] 12-27-2023 10:57-0500 Systolic blood pressure 124 mm[Hg] Hemant Galvan MD Work Phone: [facility] 10-17-2023 09:35-0400 Body mass index (BMI) [Ratio] 28.35 kg/m2 Rj Trammell MD Work Phone: [facility] 10-17-2023 09:35-0400 Body weight 87.09 kg Rj Trammell MD Work Phone: [facility] 10-17-2023 09:35-0400 Diastolic blood pressure 85 mm[Hg] Rj Trammell MD Work Phone: [facility] 10-17-2023 09:35-0400 Heart rate 63 /min Rj Trammell MD Work Phone: [facility] 10-17-2023 09:35-0400 Systolic blood pressure 118 mm[Hg] Rj Trammell MD Work Phone: [facility] 10-02-2023 09:22-0400 Body height 175.3 cm Hemant Galvan MD Work Phone: [facility] 10-02-2023 09:22-0400 Body mass index (BMI) [Ratio] 29.68 kg/m2 Hemant Galvan MD Work Phone: [facility] 10-02-2023 09:22-0400 Body temperature 96.49 [degF] Hemant Galvan MD Work Phone: [facility] 10-02-2023 09:22-0400 Body weight 91.17 kg Hemant Galvan MD Work Phone: [facility] 10-02-2023 09:22-0400 Diastolic blood pressure 82 mm[Hg] Hemant Galvan MD Work Phone: [facility] 10-02-2023 09:22-0400 Heart rate 65 /min Hemant Galvan MD Work Phone: [facility] 10-02-2023 09:22-0400 Respiratory rate 16 /min Hemant Galvan MD Work Phone: [facility] 10-02-2023 09:22-0400 SaO2% (BldA) [Mass fraction] 95 % Hemant Galvan MD Work Phone: [facility] 10-02-2023 09:22-0400 Systolic blood pressure 111 mm[Hg] Hemant Galvan MD Work Phone: [facility] 09-07-2023 07:44-0400 Body temperature 98.1 [degF] Hemant Galvan MD Work Phone: [facility] 09-07-2023 07:44-0400 Diastolic blood pressure 71 mm[Hg] Hemant Galvan MD Work Phone: [facility] 09-07-2023 07:44-0400 Heart rate 72 /min Hemant Galvan MD Work Phone: [facility] 09-07-2023 07:44-0400 Respiratory rate 16 /min Hemant Galvan MD Work Phone: [facility] 09-07-2023 07:44-0400 SaO2% (BldA) [Mass fraction] 92 % Hemant Galvan MD Work Phone: [facility] 09-07-2023 07:44-0400 Systolic blood pressure 117 mm[Hg] Hemant Galvan MD Work Phone: [facility] 09-02-2023 13:36-0400 Body height 175.3 cm Hemant Galvan MD Work Phone: [facility] 09-02-2023 13:36-0400 Body mass index (BMI) [Ratio] 29.09 kg/m2 Hemant Galvan MD Work Phone: [facility] 09-02-2023 13:36-0400 Body weight 89.36 kg Hemant Galvan MD Work Phone: [facility] 07-10-2023 13:22-0400 Body height 175.3 cm Hemant Galvan MD Work Phone: [facility] Comment on above: verbal 07-10-2023 13:22-0400 Body mass index (BMI) [Ratio] 29.87 kg/m2 Hemant Galvan MD Work Phone: [facility] 07-10-2023 13:22-0400 Body temperature 98.29 [degF] Hemant Galvan MD Work Phone: [facility] 07-10-2023 13:22-0400 Body weight 91.76 kg Hemant Galvan MD Work Phone: [facility] 07-10-2023 13:22-0400 Diastolic blood pressure 85 mm[Hg] Hemant Galvan MD Work Phone: [facility] 07-10-2023 13:22-0400 Heart rate 65 /min Hemant Galvan MD Work Phone: [facility] 07-10-2023 13:22-0400 Respiratory rate 18 /min Hemant Galvan MD Work Phone: [facility] 07-10-2023 13:22-0400 SaO2% (BldA) [Mass fraction] 96 % Hemant Galvan MD Work Phone: [facility] 07-10-2023 13:22-0400 Systolic blood pressure 140 mm[Hg] Hemant Galvan MD Work Phone: [facility] 06-21-2023 08:15-0400 Body height 175.[address] Biju Lobo Work Phone: [facility] 06-21-2023 08:15-0400 Body mass index (BMI) [Ratio] 30.1 kg/m2 Dr. Biju Lobo Work Phone: [facility] 06-21-2023 08:15-0400 Body temperature 98 [degF] Dr. Biju Lobo Work Phone: [facility] 06-21-2023 08:15-0400 Body weight 92.[address] Biju Lobo Work Phone: [facility] 06-21-2023 08:15-0400 Diastolic blood pressure 67 mm[Hg] Dr. Biju Lobo Work Phone: [facility] 06-21-2023 08:15-0400 Heart rate 71 /min Dr. Biju Lobo Work Phone: [facility] 06-21-2023 08:15-0400 Respiratory rate 22 /min Dr. Biju Lobo Work Phone: [facility] 06-21-2023 08:15-0400 SaO2% (BldA) [Mass fraction] 93 % Dr. Biju Lobo Work Phone: [facility] 06-21-2023 08:15-0400 Systolic blood pressure 100 mm[Hg] Dr. Biju Lobo Work Phone: [facility] 06-18-2023 10:02-0400 Body mass index (BMI) [Ratio] 29.9 kg/m2 Dr. Biju Lobo Work Phone: [facility] 06-18-2023 10:02-0400 Body weight 92.[address] Biju Lobo Work Phone: [facility] 06-18-2023 10:02-0400 Diastolic blood pressure 71 mm[Hg] Dr. Biju Lobo Work Phone: [facility] 06-18-2023 10:02-0400 Heart rate 78 /min Dr. Biju Lobo Work Phone: [facility] 06-18-2023 10:02-0400 Respiratory rate 18 /min Dr. Biju Lobo Work Phone: [facility] 06-18-2023 10:02-0400 Systolic blood pressure 105 mm[Hg] Dr. Biju Lobo Work Phone: [facility] 05-29-2023 13:47-0400 Body height 175.3 cm Rj Trammell MD Work Phone: [facility] 05-29-2023 13:47-0400 Body mass index (BMI) [Ratio] 31.75 kg/m2 Rj Trammell MD Work Phone: [facility] 05-29-2023 13:47-0400 Body weight 97.52 kg Rj Trammell MD Work Phone: [facility] 05-29-2023 13:47-0400 Respiratory rate 16 /min Rj Trammell MD Work Phone: [facility] 05-16-2023 12:06-0400 Heart rate 96 /min Dr. Biju Lobo Work Phone: [facility] 05-16-2023 12:06-0400 SaO2% (BldA) [Mass fraction] 95 % Dr. Biju Lobo Work Phone: [facility] 05-16-2023 12:04-0400 Inhaled oxygen flow rate 2 L/min Dr. Biju Lobo Work Phone: [facility] 05-16-2023 07:36-0400 Body height 175.[address] Biju Lobo Work Phone: [facility] 05-16-2023 07:36-0400 Body mass index (BMI) [Ratio] 31.6 kg/m2 Dr. Biju Lobo Work Phone: [facility] 05-16-2023 07:36-0400 Body temperature 97.7 [degF] Dr. iBju Lobo Work Phone: [facility] 05-16-2023 07:36-0400 Body weight 97.[address] Biju Lobo Work Phone: [facility] 05-16-2023 07:36-0400 Diastolic blood pressure 76 mm[Hg] Dr. Biju Lobo Work Phone: [facility] 05-16-2023 07:36-0400 Respiratory rate 16 /min Dr. Biju Lobo Work Phone: [facility] 05-16-2023 07:36-0400 Systolic blood pressure 108 mm[Hg] Dr. Biju Lobo Work Phone: [facility] 05-03-2023 11:54-0400 Body temperature 98.2 [degF] Dr. Biju Lobo Work Phone: [facility] 05-03-2023 11:54-0400 Diastolic blood pressure 77 mm[Hg] Dr. Biju Lobo Work Phone: [facility] 05-03-2023 11:54-0400 Heart rate 71 /min Dr. Biju Lobo Work Phone: [facility] 05-03-2023 11:54-0400 Respiratory rate 15 /min Dr. Biju Lobo Work Phone: [facility] 05-03-2023 11:54-0400 SaO2% (BldA) [Mass fraction] 100 % Dr. Biju Lobo Work Phone: [facility] 05-03-2023 11:54-0400 Systolic blood pressure 175 mm[Hg] Dr. Biju Lobo Work Phone: [facility] 05-03-2023 09:45-0400 Body height 175.[address] Biju Lobo Work Phone: [facility] 05-03-2023 09:45-0400 Body mass index (BMI) [Ratio] 31.8 kg/m2 Dr. Biju Lobo Work Phone: [facility] 05-03-2023 09:45-0400 Body weight 98.[address] Biju Lobo Work Phone: [facility] 03-19-2023 11:45-0500 Body temperature 97.4 [degF] Dr. Biju Lobo Work Phone: [facility] 03-19-2023 11:45-0500 Diastolic blood pressure 68 mm[Hg] Dr. Biju Lobo Work Phone: [facility] 03-19-2023 11:45-0500 Heart rate 67 /min Dr. Biju Lobo Work Phone: [facility] 03-19-2023 11:45-0500 Respiratory rate 18 /min Dr. Biju Lobo Work Phone: [facility] 03-19-2023 11:45-0500 SaO2% (BldA) [Mass fraction] 94 % Dr. Biju Lobo Work Phone: [facility] 03-19-2023 11:45-0500 Systolic blood pressure 111 mm[Hg] Dr. Biju Lobo Work Phone: [facility] 03-19-2023 06:00-0500 Body mass index (BMI) [Ratio] 32.1 kg/m2 Dr. Biju Lobo Work Phone: [facility] 03-19-2023 06:00-0500 Body weight 98.[address] Biju Lobo Work Phone: [facility] 03-18-2023 14:46-0500 Body height 175.[address] Biju Lobo Work Phone: [facility] 03-18-2023 14:05-0500 Inhaled oxygen flow rate 2 L/min Dr. Biju Lobo Work Phone: [facility] 03-16-2023 12:47-0500 Diastolic blood pressure 80 mm[Hg] Dr. Biju Lobo Work Phone: [facility] 03-16-2023 12:47-0500 Heart rate 80 /min Dr. Biju Lobo Work Phone: [facility] 03-16-2023 12:47-0500 Inhaled oxygen flow rate 2 L/min Dr. Bjiu Lobo Work Phone: [facility] 03-16-2023 12:47-0500 Respiratory rate 16 /min Dr. Biju Lobo Work Phone: [facility] 03-16-2023 12:47-0500 SaO2% (BldA) [Mass fraction] 98 % Dr. Biju Lobo Work Phone: [facility] 03-16-2023 12:47-0500 Systolic blood pressure 109 mm[Hg] Dr. Biju Lobo Work Phone: [facility] 03-16-2023 09:53-0500 Body height 175.[address] Biju Lobo Work Phone: [facility] 03-16-2023 09:53-0500 Body mass index (BMI) [Ratio] 31.9 kg/m2 Dr. Biju Lobo Work Phone: [facility] 03-16-2023 09:53-0500 Body temperature 97.2 [degF] Dr. Biju Lobo Work Phone: [facility] 03-16-2023 09:53-0500 Body weight 98.[address] Biju Lobo Work Phone: [facility] 03-12-2023 07:42-0500 Body mass index (BMI) [Ratio] 32.3 kg/m2 Dr. Biju Lobo Work Phone: [facility] 03-12-2023 07:42-0500 Body temperature 98.6 [degF] Dr. Biju Lobo Work Phone: [facility] 03-12-2023 07:42-0500 Body weight 99.[address] Biju Lobo Work Phone: [facility] 03-12-2023 07:42-0500 Diastolic blood pressure 91 mm[Hg] Dr. Biju Lobo Work Phone: [facility] 03-12-2023 07:42-0500 Heart rate 66 /min Dr. Biju Lobo Work Phone: [facility] 03-12-2023 07:42-0500 SaO2% (BldA) [Mass fraction] 94 % Dr. Biju Lobo Work Phone: [facility] 03-12-2023 07:42-0500 Systolic blood pressure 132 mm[Hg] Dr. Biju Lobo Work Phone: [facility] 01-31-2023 11:26-0500 Body height 175.[address] Biju Lobo Work Phone: [facility] 01-31-2023 11:26-0500 Body mass index (BMI) [Ratio] 32.8 kg/m2 Dr. Biju Lobo Work Phone: [facility] 01-31-2023 11:26-0500 Body temperature 97.8 [degF] Dr. Biju Lobo Work Phone: [facility] 01-31-2023 11:26-0500 Body weight 100.[address] Biju Lobo Work Phone: [facility] 01-31-2023 11:26-0500 Diastolic blood pressure 60 mm[Hg] Dr. Biju Lobo Work Phone: [facility] 01-31-2023 11:26-0500 Heart rate 68 /min Dr. Biju Lobo Work Phone: [facility] 01-31-2023 11:26-0500 Respiratory rate 17 /min Dr. Biju Lobo Work Phone: [facility] 01-31-2023 11:26-0500 SaO2% (BldA) [Mass fraction] 96 % Dr. Biju Lobo Work Phone: [facility] 01-31-2023 11:26-0500 Systolic blood pressure 90 mm[Hg] Dr. Biju Lboo Work Phone: [facility] 12-17-2022 06:44-0400 Body height 175.[address] Biju Lobo Work Phone: [facility] 12-17-2022 06:44-0400 Body mass index (BMI) [Ratio] 33.2 kg/m2 Dr. Biju Lobo Work Phone: [facility] 12-17-2022 06:44-0400 Body temperature 97.9 [degF] Dr. Biju Lobo Work Phone: [facility] 12-17-2022 06:44-0400 Body weight 102.[address] Biju Lobo Work Phone: [facility] 12-17-2022 06:44-0400 Diastolic blood pressure 71 mm[Hg] Dr. Biuj Lobo Work Phone: [facility] 12-17-2022 06:44-0400 Heart rate 65 /min Dr. Biju Lobo Work Phone: [facility] 12-17-2022 06:44-0400 Respiratory rate 17 /min Dr. Biju Lobo Work Phone: [facility] 12-17-2022 06:44-0400 SaO2% (BldA) [Mass fraction] 94 % Dr. Biju Lobo Work Phone: [facility] 12-17-2022 06:44-0400 Systolic blood pressure 100 mm[Hg] Dr. Biju Lobo Work Phone: [facility] 11-16-2022 08:27-0400 Body mass index (BMI) [Ratio] 32 kg/m2 Dr. Biju Lobo Work Phone: [facility] 11-16-2022 08:27-0400 Body temperature 96.7 [degF] Dr. Biju Lobo Work Phone: [facility] 11-16-2022 08:27-0400 Body weight 98.[address] Biju Lobo Work Phone: [facility] 11-16-2022 08:27-0400 Diastolic blood pressure 69 mm[Hg] Dr. Biju Lobo Work Phone: [facility] 11-16-2022 08:27-0400 Heart rate 63 /min Dr. Biju Lobo Work Phone: [facility] 11-16-2022 08:27-0400 Respiratory rate 20 /min Dr. Biju Lobo Work Phone: [facility] 11-16-2022 08:27-0400 SaO2% (BldA) [Mass fraction] 96 % Dr. Biju Lobo Work Phone: [facility] 11-16-2022 08:27-0400 Systolic blood pressure 110 mm[Hg] Dr. Biju Lobo Work Phone: [facility] 09-25-2022 16:10-0400 Body height 175.26 cm Biju Moore [employer] Work Phone: [facility]Jxgrwithcj[facility]Lznc [facility] [address] [place] Work Phone: 09-25-2022 16:10-0400 Body mass index (BMI) [Ratio] 32.49 kg/m2 Biju Moore [employer] Work Phone: [facility]Xckwkkdrfz-Kmfb [address] [place] Work Phone: 09-25-2022 16:10-0400 Body surface area Derived from formula 2.15 m2 Biju Moore [employer] Work Phone: CX-Cqkpftxrkx-Vqqj [address] [place] Work Phone: 09-25-2022 16:10-0400 Body weight 99.79 kg Biju Moore [employer] Work Phone: ES-Lbavynccqo-Urst [address] [place] Work Phone: 09-25-2022 16:10-0400 Diastolic blood pressure 73 mm[Hg] Biju Moore [employer] Work Phone: ZJ-Hekjntiwun-Ryjb [address] [place] Work Phone: 09-25-2022 16:10-0400 Heart rate 67 /min Biju Ramirezutzman Work Phone: SK[facility]Gzemzpkjkn-Lekj [address] [place] Work Phone: 09-25-2022 16:10-0400 SaO2% (BldA) [Mass fraction] 98 % Biju Lobo Work Phone: [facility]Jsknfpolpc-Hlxh [address] [place] Work Phone: 09-25-2022 16:10-0400 Systolic blood pressure 115 mm[Hg] Biju Lobo Work Phone: [facility]Unrzulaonx-Emux [address] [place] Work Phone: 09-24-2022 15:32-0400 Body height 175.[address] Biju Lobo Work Phone: [facility] 09-24-2022 15:32-0400 Body mass index (BMI) [Ratio] 32.8 kg/m2 Dr. Biju Lobo Work Phone: [facility] 09-24-2022 15:32-0400 Body temperature 98.6 [degF] Dr. Biju Lobo Work Phone: [facility] 09-24-2022 15:32-0400 Body weight 100.[address] Biju Lobo Work Phone: [facility] 09-24-2022 15:32-0400 Diastolic blood pressure 60 mm[Hg] Dr. Biju Lobo Work Phone: [facility] 09-24-2022 15:32-0400 Heart rate 68 /min Dr. Biju Lobo Work Phone: [facility] 09-24-2022 15:32-0400 Respiratory rate 16 /min Dr. Biju Lobo Work Phone: [facility] 09-24-2022 15:32-0400 SaO2% (BldA) [Mass fraction] 92 % Dr. Biju Lobo Work Phone: [facility] 09-24-2022 15:32-0400 Systolic blood pressure 110 mm[Hg] Dr. Biju Lobo Work Phone: [facility] 09-11-2022 08:23-0400 Body mass index (BMI) [Ratio] 32.1 kg/m2 Dr. Biju Lobo Work Phone: [facility] 09-11-2022 08:23-0400 Body temperature 97.5 [degF] Dr. Biju Lobo Work Phone: [facility] 09-11-2022 08:23-0400 Body weight 98.[address] Biju Lobo Work Phone: [facility] 09-11-2022 08:23-0400 Diastolic blood pressure 74 mm[Hg] Dr. Biju Lobo Work Phone: [facility] 09-11-2022 08:23-0400 Heart rate 61 /min Dr. Biuj Lobo Work Phone: [facility] 09-11-2022 08:23-0400 Respiratory rate 18 /min Dr. Biju Lobo Work Phone: [facility] 09-11-2022 08:23-0400 SaO2% (BldA) [Mass fraction] 96 % Dr. Biju Lobo Work Phone: [facility] 09-11-2022 08:23-0400 Systolic blood pressure 112 mm[Hg] Dr. Biju Lobo Work Phone: [facility] 08-30-2022 13:18-0400 Body height 175.[address] Biju Lobo Work Phone: [facility] 08-30-2022 13:18-0400 Body weight 97.[address] Biju Lobo Work Phone: [facility] 08-30-2022 13:18-0400 Heart rate 67 /min Dr. Biju Lobo Work Phone: [facility] 08-30-2022 13:18-0400 SaO2% (BldA) [Mass fraction] 97 % Dr. Biju Lobo Work Phone: [facility] 07-03-2022 05:57-0400 Body height 175.[address] Biju Lobo Work Phone: [facility] 07-03-2022 05:57-0400 Body mass index (BMI) [Ratio] 33.5 kg/m2 Dr. Biju Lobo Work Phone: [facility] 07-03-2022 05:57-0400 Body temperature 97.6 [degF] Dr. Biju Lobo Work Phone: [facility] 07-03-2022 05:57-0400 Body weight 102.[address] Biju Lobo Work Phone: [facility] 07-03-2022 05:57-0400 Diastolic blood pressure 78 mm[Hg] Dr. Biju Lobo Work Phone: [facility] 07-03-2022 05:57-0400 Heart rate 59 /min Dr. Biju Lobo Work Phone: [facility] 07-03-2022 05:57-0400 Respiratory rate 16 /min Dr. Biju Lobo Work Phone: [facility] 07-03-2022 05:57-0400 SaO2% (BldA) [Mass fraction] 97 % Dr. Biju Lobo Work Phone: [facility] 07-03-2022 05:57-0400 Systolic blood pressure 116 mm[Hg] Dr. Biju Lobo Work Phone: [facility] 06-04-2022 08:59-0400 Body height 175.[address] Biju Lobo Work Phone: [facility] 06-04-2022 08:59-0400 Body mass index (BMI) [Ratio] 33.7 kg/m2 Dr. Biju Lobo Work Phone: [facility] 06-04-2022 08:59-0400 Body temperature 98.2 [degF] Dr. Biju Lobo Work Phone: [facility] 06-04-2022 08:59-0400 Body weight 103.[address] Biju Lobo Work Phone: [facility] 06-04-2022 08:59-0400 Diastolic blood pressure 70 mm[Hg] Dr. Bjiu Lobo Work Phone: [facility] 06-04-2022 08:59-0400 Heart rate 62 /min Dr. Biju Lobo Work Phone: [facility] 06-04-2022 08:59-0400 Respiratory rate 17 /min Dr. Biju Lobo Work Phone: [facility] 06-04-2022 08:59-0400 SaO2% (BldA) [Mass fraction] 95 % Dr. Biju Lobo Work Phone: [facility] 06-04-2022 08:59-0400 Systolic blood pressure 100 mm[Hg] Dr. Biju Lobo Work Phone: [facility] 03-28-2022 13:11-0500 Body mass index (BMI) [Ratio] 34.74 kg/m2 Biju Moore Yamil Work Phone: HM-Oednwgj-Yzxhphr Work Phone: 03-28-2022 13:11-0500 Body surface area Derived from formula 2.21 m2 Biju Moore Ipracom Work Phone: QU-Kvnvrmp-Jdtofsy Work Phone: 03-28-2022 13:11-0500 Body weight 106.71 kg Biju Moore Ipracom Work Phone: KN-Vitrqxy-Wxotlcv Work Phone: 03-28-2022 13:11-0500 Diastolic blood pressure 75 mm[Hg] Biju Moore Yamil Work Phone: YO-Tagasbt-Dbccwvq Work Phone: 03-28-2022 13:11-0500 Heart rate 71 /min Biju Reesman Work Phone: AE-Nnhvdpg-Cndslzb Work Phone: 03-28-2022 13:11-0500 Systolic blood pressure 123 mm[Hg] Biju Moore Ipracom Work Phone: OU-Vytinrc-Lwqteko Work Phone: 03-27-2022 15:45-0500 Body height 175.26 cm Biju Moore Ipracom Work Phone: GS-Fkbmkkjwmd-Jpix na [address] [place] Work Phone: 03-27-2022 15:45-0500 Body mass index (BMI) [Ratio] 33.97 kg/m2 Biju Moore Ipracom Work Phone: VG-Apurpyifhk-Gock na [address] [place] Work Phone: 03-27-2022 15:45-0500 Body surface area Derived from formula 2.19 m2 Biju Moore Ipracom Work Phone: QF-Rigixuwumz-Kjyo na [address] [place] Work Phone: 03-27-2022 15:45-0500 Body weight 104.33 kg Biju Moore Ipracom Work Phone: HF-Hauijoirci-Jaui na [address] [place] Work Phone: 03-27-2022 15:45-0500 Diastolic blood pressure 67 mm[Hg] Biju [employer] Work Phone: HI-Wsvhozzroz-Aisj na [address] [place] Work Phone: 03-27-2022 15:45-0500 Heart rate 64 /min Biju [employer] Work Phone: GC-Safpxlhcma-Ngmd na [address] [place] Work Phone: 03-27-2022 15:45-0500 SaO2% (BldA) [Mass fraction] 96 % Biju [employer] Work Phone: UA-Vkewccxwmz-Gzli na [address] [place] Work Phone: 03-27-2022 15:45-0500 Systolic blood pressure 103 mm[Hg] Biju A Ipracom Work Phone: OB-Iombfdibij-Fwri na [address] [place] Work Phone: 02-07-2022 13:45-0500 Body height 175.26 cm Biju Ramirezutzman Work Phone: [facility] Work Phone: 02-07-2022 13:45-0500 Body mass index (BMI) [Ratio] 33.57 kg/m2 Biju Moore Ipracom Work Phone: [facility] Work Phone: 02-07-2022 13:45-0500 Body surface area Derived from formula 2.18 m2 Biju Moore Ipracom Work Phone: [facility] Work Phone: 02-07-2022 13:45-0500 Body temperature 97.9 [degF] Biju Moore Ipracom Work Phone: [facility] Work Phone: 02-07-2022 13:45-0500 Body weight 103.11 kg Biju Moore Ipracom Work Phone: [facility] Work Phone: 02-07-2022 13:45-0500 Diastolic blood pressure 73 mm[Hg] Biju Moore Ipracom Work Phone: [facility] Work Phone: 02-07-2022 13:45-0500 Heart rate 70 /min Biju Moore Ipracom Work Phone: [facility] Work Phone: 02-07-2022 13:45-0500 SaO2% (BldA) [Mass fraction] 96 % Biju Moore Ipracom Work Phone: [facility] Work Phone: 02-07-2022 13:45-0500 Systolic blood pressure 111 mm[Hg] Biju Reesman Work Phone: [facility] Work Phone: 02-07-2022 13:45-0500 0 1 Biju Ramirezutzman Work Phone: [facility] Work Phone: Comment on above: [facility] 01-24-2022 11:20-0500 Respiratory rate 22 /min [facility] 01-24-2022 10:56-0500 Diastolic blood pressure 62 mm[Hg] [facility] 01-24-2022 10:56-0500 Heart rate 74 /min [facility] 01-24-2022 10:56-0500 SaO2% (BldA) [Mass fraction] 96 % [facility] 01-24-2022 10:56-0500 Systolic blood pressure 89 mm[Hg] [facility] 01-24-2022 09:01-0500 Body temperature 98.9 [degF] [facility] 01-24-2022 08:58-0500 Body height 175.26 cm [facility] 01-24-2022 08:58-0500 Body mass index (BMI) [Ratio] 33.1 kg/m2 [facility] 01-24-2022 08:58-0500 Body weight 101.74 kg [facility] 01-08-2022 13:34-0500 Body mass index (BMI) [Ratio] 32.78 kg/m2 Biju Ramirezutzman Work Phone: [facility] Work Phone: 01-08-2022 13:34-0500 Body surface area Derived from formula 2.16 m2 Biju Ramirezutzman Work Phone: [facility] Work Phone: 01-08-2022 13:34-0500 Body temperature 98.1 [degF] Biju Moore Ipracom Work Phone: [facility] Work Phone: 01-08-2022 13:34-0500 Body weight 100.7 kg Biju Moore Ipracom Work Phone: [facility] Work Phone: 01-08-2022 13:34-0500 Diastolic blood pressure 68 mm[Hg] Biju Moore Ipracom Work Phone: [facility] Work Phone: 01-08-2022 13:34-0500 Heart rate 99 /min Biju Moore Ipracom Work Phone: [facility] Work Phone: 01-08-2022 13:34-0500 SaO2% (BldA) [Mass fraction] 96 % Biju Moore Ipracom Work Phone: [facility] Work Phone: 01-08-2022 13:34-0500 Systolic blood pressure 103 mm[Hg] Biju Moore Ipracom Work Phone: [facility] Work Phone: 01-08-2022 13:34-0500 0 1 Biju Moore Ipracom Work Phone: [facility] Work Phone: Comment on above: [facility] 11-27-2021 13:27-0400 Body mass index (BMI) [Ratio] 32.49 kg/m2 Biju Moore Ipracom Work Phone: [facility] Work Phone: 11-27-2021 13:27-0400 Body surface area Derived from formula 2.15 m2 Biju Moore Ipracom Work Phone: [facility] Work Phone: 11-27-2021 13:27-0400 Body temperature 207.86 [degF] Biju Moore Ipracom Work Phone: [facility] Work Phone: 11-27-2021 13:27-0400 Body weight 99.79 kg Biju Moore Ipracom Work Phone: [facility] Work Phone: 11-27-2021 13:27-0400 Diastolic blood pressure 69 mm[Hg] Biju Moore Ipracom Work Phone: [facility] Work Phone: 11-27-2021 13:27-0400 Heart rate 69 /min Biju Moore Ipracom Work Phone: [facility] Work Phone: 11-27-2021 13:27-0400 SaO2% (BldA) [Mass fraction] 96 % Biju Moore Ipracom Work Phone: [facility] Work Phone: 11-27-2021 13:27-0400 Systolic blood pressure 106 mm[Hg] Biju Moore Ipracom Work Phone: [facility] Work Phone: 11-27-2021 13:27-0400 0 1 Biju Moore Ipracom Work Phone: [facility] Work Phone: Comment on above: [facility] 11-14-2021 15:06-0400 Body height 175.26 cm Biju Moore Ipracom Work Phone: OF-Hnmcemvcov-Etfx na [address] [place] Work Phone: 11-14-2021 15:06-0400 Body mass index (BMI) [Ratio] 32.93 kg/m2 Biju Moore Ipracom Work Phone: AS-Fcntgvbbqd-Tnju na [address] [place] Work Phone: 11-14-2021 15:06-0400 Body surface area Derived from formula 2.16 m2 Biju Moore Ipracom Work Phone: XQ-Uwnwfgekqe-Iwkk na [address] [place] Work Phone: 11-14-2021 15:06-0400 Body weight 101.15 kg Biju Moore Ipracom Work Phone: QT-Wddbhnhiui-Ohkr na [address] [place] Work Phone: 11-14-2021 15:06-0400 Diastolic blood pressure 63 mm[Hg] Biju Moore Ipracom Work Phone: WW-Rykfsianou-Zejb na [address] [place] Work Phone: 11-14-2021 15:06-0400 Heart rate 87 /min Biju Moore Ipracom Work Phone: MS-Rhobhczaxa-Zetd na [address] [place] Work Phone: 11-14-2021 15:06-0400 SaO2% (BldA) [Mass fraction] 97 % Biju Moore Ipracom Work Phone: PS-Ujxafgjyvy-Iafr na [address] [place] Work Phone: 11-14-2021 15:06-0400 Systolic blood pressure 100 mm[Hg] Biju Moore Ipracom Work Phone: EW-Lclvuxbwrc-Qfxt na [address] [place] Work Phone: 10-11-2021 13:26-0400 Body height 175.26 cm Biju [facility] Work Phone: AU-Xnmpqmyane-Ppqs na [address] [place] Work Phone: 10-11-2021 13:26-0400 Body mass index (BMI) [Ratio] 32.78 kg/m2 Biju Moore Ipracom Work Phone: SS-Nokbqkxyyz-Jfnm na [address] [place] Work Phone: 10-11-2021 13:26-0400 Body surface area Derived from formula 2.16 m2 Biju Moore Ipracom Work Phone: CB-Ffxgdlacbt-Vlnd na [address] [place] Work Phone: 10-11-2021 13:26-0400 Body weight 100.7 kg Bjiu Moore Ipracom Work Phone: FQ-Buiqdpuynn-Ymgq na [address] [place] Work Phone: 10-11-2021 13:26-0400 Diastolic blood pressure 78 mm[Hg] Biju Moore Ipracom Work Phone: MT-Hcoimjbyay-Mqtn na [address] [place] Work Phone: 10-11-2021 13:26-0400 Heart rate 78 /min Biju Moore Ipracom Work Phone: KQ-Hboyhkbubh-Evnc na [address] [place] Work Phone: 10-11-2021 13:26-0400 SaO2% (BldA) [Mass fraction] 95 % Biju Moore Ipracom Work Phone: CZ-Gcpolymmeh-Lehx na [address] [place] Work Phone: 10-11-2021 13:26-0400 Systolic blood pressure 121 mm[Hg] Biju Moore Ipracom Work Phone: WL-Qcwchzezun-Vwza na [address] [place] Work Phone: 10-11-2021 13:26-0400 0 1 Biju Moore Ipracom Work Phone: RM-Yplduktcvr-Puwj na [address] [place] Work Phone: Comment on above: [facility] 09-11-2021 14:39-0400 Body height 172.72 cm Biju Moore Ipracom Work Phone: KY-Xmhafjtguk-Yunk na [address] [place] Work Phone: 09-11-2021 14:39-0400 Body mass index (BMI) [Ratio] 33.15 kg/m2 Biju Moore Ipracom Work Phone: FG-Hlzhzrhptm-Vdrk na [address] [place] Work Phone: 09-11-2021 14:39-0400 Body surface area Derived from formula 2.12 m2 Biju Moore Ipracom Work Phone: ZC-Xeamlurnuy-Wryd na [address] [place] Work Phone: 09-11-2021 14:39-0400 Body weight 98.88 kg Biju Moore Ipracom Work Phone: TP-Gegnpmocnm-Fuae na [address] [place] Work Phone: 09-11-2021 14:39-0400 Diastolic blood pressure 85 mm[Hg] Biju Moore Ipracom Work Phone: TZ-Zdgkdhblps-Jmtl na [address] [place] Work Phone: 09-11-2021 14:39-0400 Heart rate 73 /min Biju Moore Ipracom Work Phone: VW-Dfhkphqmkr-Cgft na [address] [place] Work Phone: 09-11-2021 14:39-0400 SaO2% (BldA) [Mass fraction] 96 % Biju [employer] Work Phone: IP-Vnhevndzai-Midf na [address] [place] Work Phone: 09-11-2021 14:39-0400 Systolic blood pressure 122 mm[Hg] Biju Moore Ipracom Work Phone: QD-Pzvgiayafk-Kojv na [address] [place] Work Phone: 06-23-2021 14:31-0400 Body height 172.72 cm Biju Moore Ipracom Work Phone: [facility] Work Phone: 06-23-2021 14:31-0400 Body mass index (BMI) [Ratio] 32.69 kg/m2 Biju Moore Ipracom Work Phone: [facility] Work Phone: 06-23-2021 14:31-0400 Body surface area Derived from formula 2.11 m2 Biju Moore Ipracom Work Phone: [facility] Work Phone: 06-23-2021 14:31-0400 Body weight 97.52 kg Biju Moore Ipracom Work Phone: [facility] Work Phone: 06-23-2021 14:31-0400 Diastolic blood pressure 84 mm[Hg] Biju Moore Ipracom Work Phone: [facility] Work Phone: 06-23-2021 14:31-0400 Heart rate 72 /min Biju Moore Ipracom Work Phone: [facility] Work Phone: 06-23-2021 14:31-0400 SaO2% (BldA) [Mass fraction] 96 % Biju Moore Ipracom Work Phone: [facility] Work Phone: 06-23-2021 14:31-0400 Systolic blood pressure 142 mm[Hg] Biju Moore Ipracom Work Phone: [facility] Work Phone: 06-21-2021 13:27-0400 Body mass index (BMI) [Ratio] 32.23 kg/m2 Biju Moore Ipracom Work Phone: [facility] Work Phone: 06-21-2021 13:27-0400 Body surface area Derived from formula 2.1 m2 Biju Moore Ipracom Work Phone: [facility] Work Phone: 06-21-2021 13:27-0400 Body temperature 207.86 [degF] Biju Lobo Work Phone: [facility] Work Phone: 06-21-2021 13:27-0400 Body weight 96.16 kg Biju Lobo Work Phone: [facility] Work Phone: 06-21-2021 13:27-0400 Diastolic blood pressure 72 mm[Hg] Biju Lobo Work Phone: [facility] Work Phone: 06-21-2021 13:27-0400 Heart rate 58 /min Biju Lobo Work Phone: [facility] Work Phone: 06-21-2021 13:27-0400 SaO2% (BldA) [Mass fraction] 98 % Biju Lobo Work Phone: [facility] Work Phone: 06-21-2021 13:27-0400 Systolic blood pressure 116 mm[Hg] Biju Lobo Work Phone: [facility] Work Phone: 06-21-2021 13:27-0400 0 1 Biju Lobo Work Phone: [facility] Work Phone: Comment on above: [facility] 06-08-2021 17:35-0400 Body temperature 97.88 [degF] Biju Lobo Other Phone: [facility] 06-08-2021 17:35-0400 Diastolic blood pressure 71 mm[Hg] Biju Lobo Other Phone: [facility] 06-08-2021 17:35-0400 Heart rate 81 /min Biju Lobo Other Phone: [facility] 06-08-2021 17:35-0400 Respiratory rate 18 /min Biju Lobo Other Phone: [facility] 06-08-2021 17:35-0400 SaO2% (BldA) [Mass fraction] 96 % Biju Lobo Other Phone: [facility] 06-08-2021 17:35-0400 Systolic blood pressure 102 mm[Hg] Biju Lobo Other Phone: [facility] 06-08-2021 10:25-0400 Body weight 96.8 kg Biju Lobo Other Phone: [facility] 05-02-2021 09:52-0400 Body height 172.72 cm Biju Lobo Work Phone: [facility] [place] Work Phone: 05-02-2021 09:52-0400 Body mass index (BMI) [Ratio] 32.99 kg/m2 Biju Moore Yamil Work Phone: [facility] [place] Work Phone: 05-02-2021 09:52-0400 Body surface area Derived from formula 2.12 m2 Biju Moore Yamil Work Phone: [facility] [place] Work Phone: 05-02-2021 09:52-0400 Body temperature 207.5 [degF] Biju Moore Yamil Work Phone: [facility] [place] Work Phone: 05-02-2021 09:52-0400 Body weight 98.43 kg Biju Moore Ipracom Work Phone: [facility] [place] Work Phone: 05-02-2021 09:52-0400 0 1 Biju Ramirezutzman Work Phone: [facility] [place] Work Phone: Comment on above: [facility] 04-03-2021 14:19-0500 Body height 177.8 cm Biju Moore Ipracom Work Phone: PE-Cnrsqmcubr-Tare n [address] [place] Work Phone: 04-03-2021 14:19-0500 Body mass index (BMI) [Ratio] 31.68 kg/m2 Biju Moore Ipracom Work Phone: GO-Codgobkgxy-Cnyb n 204 [place] Work Phone: 04-03-2021 14:19-0500 Body surface area Derived from formula 2.18 m2 Biju Moore Ipracom Work Phone: JR-Qgxuargzej-Djsu n 204 [place] Work Phone: 04-03-2021 14:19-0500 Body temperature 208.94 [degF] Biju Moore Ipracom Work Phone: ZS-Gjfxblmrud-Dxyf n 204 [place] Work Phone: 04-03-2021 14:19-0500 Body weight 100.15 kg Biju Moore Ipracom Work Phone: CT-Lcrsjudtuk-Xjee n 204 [place] Work Phone: 04-03-2021 14:19-0500 Diastolic blood pressure 72 mm[Hg] Biju Moore Ipracom Work Phone: XW-Dbjmhrbpko-Parx n 204 [place] Work Phone: 04-03-2021 14:19-0500 Heart rate 81 /min Biju Moore Ipracom Work Phone: YD-Pahfhptdrw-Rbuu n 204 [place] Work Phone: 04-03-2021 14:19-0500 SaO2% (BldA) [Mass fraction] 96 % Biju Moore Ipracom Work Phone: YQ-Udvulwxwpp-Skeu n 204 [place] Work Phone: 04-03-2021 14:19-0500 Systolic blood pressure 107 mm[Hg] Biju Moore Ipracom Work Phone: YM-Cwimrrwvzy-Upyp n 204 DO Work Phone: 03-29-2021 14:56-0500 Body height 177.8 cm Biju Moore Ipracom Work Phone: LR-Eiibykmfzz-Djet n 204 DO Work Phone: 03-29-2021 14:56-0500 Body mass index (BMI) [Ratio] 31.21 kg/m2 Biju Moore Ipracom Work Phone: NI-Cwgxwekwxs-Fadi n 204 DO Work Phone: 03-29-2021 14:56-0500 Body surface area Derived from formula 2.16 m2 Biju Moore Ipracom Work Phone: VI-Ktmmmyzzdl-Jwqz n 204 DO Work Phone: 03-29-2021 14:56-0500 Body weight 98.66 kg Biju Moore Ipracom Work Phone: RZ-Hafrkhjvjq-Xcdm n 204 DO Work Phone: 03-22-2021 13:37-0500 Body mass index (BMI) [Ratio] 30.85 kg/m2 Biju Moore Ipracom Work Phone: [facility] Work Phone: 03-22-2021 13:37-0500 Body surface area Derived from formula 2.15 m2 Biju Moore Ipracom Work Phone: [facility] Work Phone: 03-22-2021 13:37-0500 Body temperature 207.86 [degF] Biju Moore Ipracom Work Phone: [facility] Work Phone: 03-22-2021 13:37-0500 Body weight 97.52 kg Biju Ramirezutzman Work Phone: [facility] Work Phone: 03-22-2021 13:37-0500 Diastolic blood pressure 76 mm[Hg] Biju Moore Ipracom Work Phone: [facility] Work Phone: 03-22-2021 13:37-0500 Heart rate 78 /min Biju Ramirezutzman Work Phone: [facility] Work Phone: 03-22-2021 13:37-0500 SaO2% (BldA) [Mass fraction] 98 % Biju Moore Ipracom Work Phone: [facility] Work Phone: 03-22-2021 13:37-0500 Systolic blood pressure 119 mm[Hg] Biju Ramirezutzman Work Phone: [facility] Work Phone: 03-22-2021 13:37-0500 0 1 Biju Ramirezutzman Work Phone: [facility] Work Phone: Comment on above: [facility] 03-07-2021 10:58-0500 Body height 177.8 cm Biju Lobo Work Phone: [facility] Work Phone: 03-07-2021 10:58-0500 Body mass index (BMI) [Ratio] 30.3 kg/m2 Biju Ramirezutzman Work Phone: [facility] Work Phone: 03-07-2021 10:58-0500 Body surface area Derived from formula 2.14 m2 Biju A Ipracom Work Phone: [facility] Work Phone: 03-07-2021 10:58-0500 Body temperature 98.24 [degF] Biju A Ipracom Work Phone: [facility] Work Phone: 03-07-2021 10:58-0500 Body weight 95.8 kg Biju A Ipracom Work Phone: [facility] Work Phone: 03-07-2021 10:58-0500 Diastolic blood pressure 89 mm[Hg] Biju A Ipracom Work Phone: [facility] Work Phone: 03-07-2021 10:58-0500 Heart rate 91 /min Biju A Ipracom Work Phone: [facility] Work Phone: 03-07-2021 10:58-0500 Respiratory rate 16 /min Biju A Ipracom Work Phone: [facility] Work Phone: 03-07-2021 10:58-0500 SaO2% (BldA) [Mass fraction] 96 % Biju A Ipracom Work Phone: [facility] Work Phone: 03-07-2021 10:58-0500 Systolic blood pressure 126 mm[Hg] Biju A Ipracom Work Phone: [facility] Work Phone: 03-07-2021 10:58-0500 0 1 Biju A Ipracom Work Phone: [facility] Work Phone: Comment on above: [facility] 03-01-2021 15:10-0500 Body height 177.8 cm Biju A Ipracom Work Phone: RF-Zdqimqd-Rotzoeu Work Phone: 03-01-2021 15:10-0500 Body mass index (BMI) [Ratio] 30.31 kg/m2 Biju Moore Ipracom Work Phone: FJ-Arrkycq-Ushgzhs Work Phone: 03-01-2021 15:10-0500 Body surface area Derived from formula 2.14 m2 Biju Moore Ipracom Work Phone: WE-Qglwrwi-Ablzjkd Work Phone: 03-01-2021 15:10-0500 Body weight 95.82 kg Biju Moore Ipracom Work Phone: JK-Fqfrdtg-Kbrwcno Work Phone: 03-01-2021 15:10-0500 Diastolic blood pressure 67 mm[Hg] Biju Moore Ipracom Work Phone: DQ-Bkpaxez-Chorrny Work Phone: 03-01-2021 15:10-0500 Heart rate 134 /min Biju Moore Ipracom Work Phone: TA-Joievod-Rqldjpu Work Phone: 03-01-2021 15:10-0500 Systolic blood pressure 124 mm[Hg] Biju Moore Ipracom Work Phone: NP-Okdvexp-Ivlwfrk Work Phone: 02-27-2021 13:55-0500 Body height 177.8 cm Biju Moore Ipracom Work Phone: CE-Bipqohlrei-Dfln n 204 DO Work Phone: 02-27-2021 13:55-0500 Body mass index (BMI) [Ratio] 30.43 kg/m2 Biju Moore Ipracom Work Phone: IW-Hwgjmzfmwb-Llqq n 204 DO Work Phone: 02-27-2021 13:55-0500 Body surface area Derived from formula 2.14 m2 Biju A Ipracom Work Phone: UW-Rmoykppgol-Qgyj n 204 DO Work Phone: 02-27-2021 13:55-0500 Body temperature 98 [degF] Biju Moore Ipracom Work Phone: XZ-Mzsfhtkmfs-Susa n 204 DO Work Phone: 02-27-2021 13:55-0500 Body weight 96.19 kg Biju Moore Ipracom Work Phone: BA-Vrlzsuktjf-Aumz n 204 DO Work Phone: 02-27-2021 13:55-0500 Diastolic blood pressure 78 mm[Hg] Biju Moore Ipracom Work Phone: EW-Qlxlbnypfl-Pptu n 204 DO Work Phone: 02-27-2021 13:55-0500 Heart rate 88 /min Biju Moore Ipracom Work Phone: NM-Ogcmtgdobj-Cyeo n 204 DO Work Phone: 02-27-2021 13:55-0500 SaO2% (BldA) [Mass fraction] 97 % Biju Moore Ipracom Work Phone: SM-Vgqkxqmmjj-Piip n 204 DO Work Phone: 02-27-2021 13:55-0500 Systolic blood pressure 126 mm[Hg] Biju Moore Ipracom Work Phone: XF-Vitquadcst-Ehej n 204 DO Work Phone: 01-25-2021 15:46-0500 Body height 177.8 cm Biju Moore Ipracom Work Phone: UV-Iyxqknm-Atcivrk d HC 232 DO Work Phone: 01-25-2021 15:46-0500 Body mass index (BMI) [Ratio] 25.4 kg/m2 Biju Moore Ipracom Work Phone: EY-Egrbcau-Htzzfcj d HC 232 DO Work Phone: 01-25-2021 15:46-0500 Body surface area Derived from formula 1.98 m2 Biju Moore Ipracom Work Phone: AR-Schiopt-Rttjjbr d HC 232 DO Work Phone: 01-25-2021 15:46-0500 Body weight 80.3 kg Bjiu Moore Ipracom Work Phone: DM-Mqlogso-Bqsjssg d HC 232 DO Work Phone: 01-25-2021 15:46-0500 Diastolic blood pressure 80 mm[Hg] Biju Moore Ipracom Work Phone: HL-Okgbvvk-Nlrsuro d HC 232 DO Work Phone: 01-25-2021 15:46-0500 Heart rate 83 /min Biju Moore Ipracom Work Phone: IM-Eiouxvr-Fyiapbp d HC 232 DO Work Phone: 01-25-2021 15:46-0500 Systolic blood pressure 131 mm[Hg] Biju Moore Ipracom Work Phone: GY-Nmspmeq-Qjjfgmn d HC 232 DO Work Phone: 12-07-2020 14:12-0400 Body height 177.8 cm Biju Moore Ipracom Work Phone: JJ-Zpdyxlka-Odonhd de 1500 Work Phone: 12-07-2020 14:12-0400 Body mass index (BMI) [Ratio] 28.02 kg/m2 Biju Moore Ipracom Work Phone: PE-Nezvyveu-Zgrzyz de 1500 Work Phone: 12-07-2020 14:12-0400 Body surface area Derived from formula 2.07 m2 Biju Moore Ipracom Work Phone: UL-Bvzgwuqi-Vkzjdc de 1500 Work Phone: 12-07-2020 14:12-0400 Body temperature 97.9 [degF] Biju Lobo Work Phone: DJ-Mqcqvgqk-Bpbbdx de 1500 Work Phone: 12-07-2020 14:12-0400 Body weight 88.59 kg Biju Lobo Work Phone: AQ-Vnihoxko-Yxphbx de 1500 Work Phone: 12-07-2020 14:12-0400 Diastolic blood pressure 73 mm[Hg] Biju Lobo Work Phone: AM-Zoptvzji-Yqijui de 1500 Work Phone: 12-07-2020 14:12-0400 Systolic blood pressure 119 mm[Hg] Biju Lobo Work Phone: HS-Tghigvwg-Oifebk [address] 1500 Work Phone: Encounters Encounter Date Encounter Type Care Provider Facility Start: 09-14-2024 ambulatory Richard Munoz Facility:[facility] Start: 09-11-[address] Richard Munoz DO -Pulmonary Rehab Work Phone: Start: 09-07-2024 End: 09-07-[address] Biju Lobo DO Work Phone: -[facility] Rehab Start: 09-07-2024 End: 09-07-[address] Richard Munoz DO -Pulmonary Rehab Work Phone: Start: 09-07-2024 End: 09-07-2024 ambulatory Richard Munoz Facility:[facility] Start: 09-02-2024 End: 09-02-[address] Richard Munoz DO -[facility] Work Phone: Start: 09-02-2024 End: 09-02-[address] Biju Lobo DO Work Phone: -[facility] Start: 08-04-2024 End: 08-04-[address] Biju Lobo DO Work Phone: [facility] Work Phone: Start: 08-04-2024 End: 08-04-2024 Patient encounter procedure BROADCAST TECHNICIAN Tita Wick -Cat Scan [facility] Work Phone: Start: 08-04-2024 End: 08-04-2024 ambulatory Biju Lobo Facility:[facility] Start: 07-23-2024 End: 07-23-[address] Christian Hernandez MD -[facility] Work Phone: Start: 07-23-2024 End: 07-23-[address] Biju Lobo DO Work Phone: [facility] Work Phone: Start: 07-15-2024 End: 07-15-[address] Biju Lobo DO Work Phone: [facility] Work Phone: Start: 07-15-2024 End: 07-15-2024 Patient encounter procedure EPIFANIO Wick -[facility] Work Phone: Start: 07-10-2024 End: 07-10-[address] Biju Lobo DO Work Phone: [facility] Work Phone: Start: 07-10-2024 End: 07-10-[address] Christian Hernandez MD -Radiology [facility] Work Phone: Start: 07-10-2024 End: 07-10-2024 ambulatory Christian Hernandez Facility:[facility] Start: 07-03-2024 ambulatory Richard Munoz Facility:[facility] Start: 07-03-2024 Non-patient / Non-visit Dr. Richard montelongo DO -[facility] Start: 07-02-2024 End: 07-02-[address] Biju Lobo DO Work Phone: [facility] Work Phone: Start: 07-02-2024 End: 07-02-2024 Patient encounter procedure BROADCAST TECHNICIAN Tita Wick -Pulmonary Services/Neurology Work Phone: Start: 07-02-2024 End: 07-02-2024 ambulatory Tita Wick Facility:[facility] Start: 06-29-2024 Non-patient / Non-visit Dr. Richard montelongo DO -[facility] Start: 06-29-2024 End: 06-29-[address] Biju Lobo DO Work Phone: [facility] Work Phone: Start: 06-29-2024 End: 06-29-2024 Patient encounter procedure BROADCAST TECHNICIAN Tita Wick -Pulmonary Services/Neurology Work Phone: Start: 06-29-2024 End: 06-29-2024 ambulatory Tita Wick Facility:[facility] Start: 06-24-2024 End: 06-24-2024 Office outpatient visit 15 minutes Hemant Galvan MD Work Phone: [facility] Comment on above: Bilateral vocal fold paralysis (Primary Dx); Tracheostomy dependence Start: 06-24-[address] [facility] Start: 06-22-2024 Non-patient / Non-visit Dr. Harrison wilkes MD -[facility] Start: 06-22-2024 End: 06-22-[address] Biju Lobo DO Work Phone: [facility] Work Phone: Start: 06-22-2024 End: 06-22-[address] Christian Hernandez MD -Cardiovascular Services Work Phone: Start: 06-22-2024 End: 06-22-2024 ambulatory Christian Hernandez Facility:[facility] Start: 05-27-2024 End: 05-27-2024 ambulatory Biju Lobo Facility:[facility] Start: 05-27-2024 End: 05-27-2024 Patient encounter procedure EPIFANIO Wick -[facility] Work Phone: Start: 05-26-2024 End: 05-26-[address] Christian Hernandez MD -[facility] Work Phone: Start: 05-26-2024 End: 05-26-2024 ambulatory Christian Fishallyson Facility:[facility] Start: 04-15-2024 End: 04-15-2024 Patient encounter procedure EPIFANIO Wick -[facility] Work Phone: Start: 04-15-2024 End: 04-15-2024 ambulatory Biju Yamil Facility:[facility] Start: 04-13-2024 End: 04-13-[address] Biju Lobo DO Work Phone: [facility] Work Phone: Start: 04-13-2024 End: 04-13-[address] Gilbert Hoang MD -Laboratory Work Phone: Start: 04-13-2024 End: 04-13-2024 ambulatory [facility] Facility:[facility] Start: 04-01-2024 End: 04-01-[address] Gilbert Hoang MD -[facility] Work Phone: Start: 04-01-2024 End: 04-01-2024 ambulatory [facility] Facility:[facility] Start: 03-25-2024 End: 03-25-2024 Office outpatient visit 15 minutes Hemant Galvan MD Work Phone: [facility] Comment on above: Bilateral vocal fold paralysis (Primary Dx); Tracheostomy dependence Start: 03-25-2024 ambulatory BIJU Teresa [facility] Start: 03-24-2024 End: 03-24-[address] Akbar Archuleta MD -Laboratory Work Phone: Start: 03-24-2024 End: 03-24-2024 ambulatory Akbar Archuleta Facility:[facility] Start: 03-16-2024 End: 03-16-[address] Christian Hernandez MD -[facility] Work Phone: Start: 03-16-2024 End: 03-16-2024 ambulatory Christian Hernandez Facility:[facility] Start: 03-08-2024 End: 03-08-2024 Emergency department patient visit Dr. Ramos Randall MD -Emergency Department Work Phone: Start: 03-08-2024 End: 03-08-2024 ambulatory Facility:[facility] Start: 12-27-2023 End: 12-27-2023 Office outpatient visit 15 minutes Hemant Galvan MD Work Phone: [facility] Comment on above: Bilateral vocal fold paralysis (Primary Dx); Tracheostomy dependence Start: 12-27-2023 ambulatory VALYERMO Teresa [facility] Start: 12-24-2023 End: 12-24-2023 ambulatory Biju [facility] Facility:[facility] Start: 12-10-2023 End: 12-10-2023 ambulatory Biju [facility] Facility:[facility] Start: 11-26-2023 End: 11-26-2023 ambulatory Biju RamirezYamil Facility:[facility] Start: 11-12-2023 End: 11-12-2023 ambulatory [facility] Facility:[facility] Start: 10-30-2023 ambulatory [facility] Facility: [facility] Start: 10-30-2023 End: 11-02-2023 Evaluation and management of inpatient Biju RamirezYamil Facility:[facility] Start: 10-29-2023 ambulatory Biju Yamil Facility: [facility] Start: 10-28-2023 End: 10-28-2023 Emergency department patient visit [facility] Facility:[facility] Start: 10-28-2023 End: 10-28-2023 ambulatory II Rj Trammell Facility:[facility] Start: 10-22-2023 End: 10-23-2023 Evaluation and management of inpatient Danita Spaulding Facility:[facility] Start: 10-22-2023 ambulatory Danita Spaulding Facility:[facility] Start: 10-17-2023 End: 10-17-2023 ambulatory [facility] Facility:[facility] Start: 10-17-2023 End: 10-17-2023 Office outpatient visit 25 minutes Rj Trammell MD Work Phone: [facility] Comment on above: Benign prostatic hyp erplasia with urinary obstruction and other lower urinary tract symptoms; Nocturia; Erectile disorder; Urinary incontinence, unspecified type; Recurrent UTI Start: 10-11-2023 End: 10-11-2023 Emergency department patient visit Biju Lobo Facility:[facility] Start: 10-10-2023 End: 10-10-2023 ambulatory Biju Lobo Facility:[facility] Start: 10-02-2023 End: 10-02-2023 Office outpatient visit 25 minutes Hemant Galvan MD Work Phone: [facility] Comment on above: Bilateral vocal fold paralysis (Primary Dx); Tracheostomy dependence Start: 10-02-2023 ambulatory BIJU LOBO Facilit y:[facility] Start: 10-01-2023 End: 10-01-2023 ambulatory Biju Lobo Facility:[facility] Start: 09-02-2023 End: 09-07-2023 Evaluation and management of inpatient Hemant Galvan MD Work Phone: [facility] Comment on above: Bilateral vocal fold paralysis Start: 08-29-2023 ambulatory BIJU LOBO Facilit y:[facility] Start: 08-29-2023 Encounter for other preprocedural examination BIJU LOBO Facility:[facility] Start: 07-10-2023 End: 07-10-2023 Office outpatient new 45 minutes Hemant Galvan MD Work Phone: [facility] Comment on above: Bilateral vocal fold paralysis (Primary Dx); Stridor; Dyspnea on exertion Start: 07-10-2023 ambulatory RAJINDER GRIJALVA Facility :[facility] Start: 06-25-[address] Biju Lobo Work Phone: [facility]-Laboratory Work Phone: Start: 06-21-2023 End: 06-21-[address] Biju Lobo Work Phone: [facility] Work Phone: Start: 06-18-2023 End: 06-18-[address] Biju Lobo Work Phone: [facility] Work Phone: Start: 06-18-2023 End: 06-18-[address] [facility] Start: 06-18-2023 End: 06-18-[address] Biju Lobo Work Phone: [facility] Work Phone: Start: 05-29-2023 End: 05-29-2023 ambulatory [facility] Ambulatory Start: 05-29-2023 End: 05-29-2023 Office outpatient visit 25 minutes Rj Trammell MD Work Phone: [facility] Comment on above: Benign prostatic hyp erplasia with urinary obstruction and other lower urinary tract symptoms (Primary Dx); Nocturia; Erectile disorder Start: 05-17-2023 End: 05-17-[address] Biju Lobo Work Phone: [facility] Work Phone: Start: 05-17-2023 End: 05-17-[address] Biju Lobo [facility] Work Phone: Start: 05-16-2023 End: 05-16-[address] Biju Lobo Work Phone: [facility] Work Phone: Start: 05-16-2023 End: 05-16-[address] Biju Lobo [facility] Start: 05-16-2023 End: 05-16-[address] Biju Lobo Work Phone: [facility] Work Phone: Start: 05-06-2023 End: 05-06-[address] Biju Lobo Work Phone: [facility] Work Phone: Start: 05-06-2023 End: 05-06-[address] Biju Lobo Work Phone: [facility]-Laboratory Work Phone: Start: 05-03-2023 End: 05-03-2023 Emergency department patient visit Dr. Biju Lobo Work Phone: [facility]-Emergency Department Work Phone: Start: 03-28-2023 End: 03-28-[address] Biju Lobo Work Phone: [facility] Work Phone: Start: 03-28-2023 End: 03-28-[address] Biju Lobo Work Phone: [facility] Start: 03-26-2023 End: 03-26-2023 ambulatory [facility] Start: 03-19-2023 Non-patient / Non-visit Dr. Brigitte Lobo Work Phone: [facility] Work Phone: Start: 03-18-2023 Non-patient / Non-visit Dr. Brigitte Lobo Work Phone: [facility] Start: 03-18-2023 Non-patient / Non-visit Dr. Brigitte Lobo Work Phone: [facility] Work Phone: Start: 03-17-2023 Non-patient / Non-visit Dr. Brigitte Lobo Work Phone: [facility] Work Phone: Start: 03-16-2023 Non-patient / Non-visit Dr. Brigitte Lobo Work Phone: [facility] Start: 03-16-2023 End: 03-19-2023 Evaluation and management of inpatient Dr. Biju Lobo Work Phone: [facility]-Medical Surgical 3 Work Phone: Start: 03-12-2023 End: 03-12-[address] Biju Lobo Work Phone: [facility] [place] Work Phone: Start: 02-04-2023 Non-patient / Non-visit Dr. Brigitte Lobo Work Phone: [facility] Start: 02-04-2023 End: 02-04-[address] Biju Lobo Work Phone: [facility] Work Phone: Start: 02-04-2023 End: 02-04-[address] Biju Lobo Work Phone: [facility]-Cardiovascula r Services Work Phone: Start: 01-31-2023 End: 01-31-[address] Biju Lobo Work Phone: [facility] Work Phone: Start: 12-17-2022 End: 12-17-[address] Biju Lobo Work Phone: [facility] [place] Work Phone: Start: 12-14-2022 End: 12-14-[address] Biju Lobo Work Phone: [facility] Work Phone: Start: 12-14-2022 End: 12-14-[address] Biju Lobo Work Phone: [facility]-Laboratory, OP Pavilion Start: 11-16-2022 End: 11-16-[address] Biju Lobo Work Phone: [facility] Work Phone: Start: 11-06-2022 AUDIT Biju Reesma n Work Phone: DB-Ojtxbgm-Jyczkpb Work Phone: Start: 11-03-2022 AUDIT Biju Reesma n Work Phone: XD-Tudbwhmzlq-Zponr Work Phone: Start: 10-09-2022 End: 10-09-[address] Biju Lobo Work Phone: [facility] Work Phone: Start: 10-09-2022 End: 10-09-[address] Biju Lobo Work Phone: [facility] Work Phone: Start: 09-25-2022 Office outpatient vi sit 15 minutes Biju Lobo Work Phone: MP-Azsoaffuev-Xuhjog [address] [place] Work Phone: Start: 09-25-[address] Biju Lobo Facility:[id number] Start: 09-25-2022 End: 09-25-[address] Biju Lobo Work Phone: [facility] Work Phone: Start: 09-25-2022 End: 09-25-[address] Biju Lobo Work Phone: [facility] Work Phone: Start: 09-24-2022 End: 09-24-[address] Biju Lobo Work Phone: [facility] Work Phone: Start: 09-21-2022 AUDIT Biju henriquez Work Phone: AZ-Apxjagxetc-Xksuaz [address] [place] Work Phone: Start: 09-13-2022 End: 09-13-[address] Biju Lobo Work Phone: [facility]-Sleep Lab Work Phone: Start: 09-11-2022 End: 09-11-[address] Biju Lobo Work Phone: [facility] Work Phone: Start: 09-10-2022 AUDIT Biju henriquez Work Phone: AG-Xdkyhofyjp-Fqxfk Work Phone: Start: 08-31-2022 Non-patient / Non-visit Dr. Brigitte Lobo Work Phone: [facility] Start: 08-30-2022 End: 08-30-[address] Biju Lobo Work Phone: [facility] Work Phone: Start: 08-30-2022 End: 08-30-[address] Biju Lobo Work Phone: [facility]-Pulmonary Services/Neurology Work Phone: Start: 08-24-2022 Non-patient / Non-visit Dr. Brigitte Lobo Work Phone: [facility] Start: 08-23-2022 End: 08-23-[address] Biju Lobo Work Phone: [facility] Work Phone: Start: 08-23-2022 End: 08-23-[address] Biju Lobo Work Phone: [facility]-Pulmonary Services/Neurology Work Phone: Start: 07-03-2022 End: 07-03-[address] Biju Lobo Work Phone: [facility] Work Phone: Start: 07-03-2022 End: 07-03-[address] Biju Lobo Work Phone: [facility]-Pulmonary Medicine [facility] Start: 06-28-2022 End: 06-28-[address] Biju Lobo Work Phone: [facility] Work Phone: Start: 06-28-2022 End: 06-28-[address] Biju Lobo Work Phone: [facility]-Sleep Lab Start: 06-19-2022 End: 06-19-[address] Biju Lobo Work Phone: [facility] Work Phone: Start: 06-19-2022 End: 06-19-[address] Biju Lobo Work Phone: [facility]-Laboratory Start: 06-07-2022 AUDIT Biju henriquez Work Phone: CA-Hfwxcpnvze-Wnrbw Work Phone: Start: 06-04-2022 End: 06-04-[address] Biju Lobo Work Phone: [facility] Start: 05-21-2022 Non-patient / Non-visit Dr. Brigitte Lobo Work Phone: [facility]BN Start: 05-21-2022 End: 05-21-[address] Biju Lobo Work Phone: [facility] Work Phone: Start: 05-21-2022 End: 05-21-[address] Bjiu Lobo Work Phone: [facility]-Pulmonary Services/Neurology Start: 05-09-2022 AUDIT Biju Rose n Work Phone: AT-Vafdailstl-Eucjlf [address] [place] Work Phone: Start: 05-02-2022 End: 05-02-2022 ambulatory [facility] Work Phone: Start: 05-02-2022 End: 05-02-2022 [facility] Start: 04-11-2022 End: 04-11-2022 ambulatory [facility] Work Phone: Start: 04-11-2022 End: 04-11-2022 [facility] Start: 03-28-2022 FUV, Provider: Rj Trammell II, Status: Pen, Time: 1:15 PM Biju Lobo Work Phone: HI-Brkgozehqo-Dzlcxy [address] [place] Work Phone: Start: 03-28-2022 Office outpatient vi sit 25 minutes Biju Reesman Work Phone: CH-Hyxkeve-Mrlreef Work Phone: Start: 03-27-2022 Office outpatient vi sit 25 minutes Biju Moore Yamil Work Phone: JG-Qmeysjqaaz-Dgsyjr [address] [place] Work Phone: Start: 03-09-2022 AUDIT Biju Reesma n Work Phone: CY-Mdnfpbs-Mzesaqs Work Phone: Start: 02-22-2022 End: 02-22-2022 ambulatory [facility] Work Phone: Start: 02-22-2022 End: 02-22-2022 Patient encounter procedure [facility]-Laboratory Start: 02-07-2022 Patient encounter procedure Biju Lobo Work Phone: [facility] [facility] Work Phone: Start: 01-25-2022 Chart Update Biju Reesma n Work Phone: [facility] [facility] Work Phone: Start: 01-24-2022 End: 01-24-2022 Emergency department patient visit [facility]-Emergency Department Start: 01-08-2022 Office outpatient vi sit 15 minutes Biju Lobo Work Phone: [facility] [facility] Work Phone: Start: 01-08-2022 Patient encounter procedure Biju Lobo Work Phone: [facility] [facility] Work Phone: Start: 12-25-2021 Chart Update Biju Teresa Cabrerama n Work Phone: QT-Xlfszuvtiu-Agbhco [address] [place] Work Phone: Start: 12-14-2021 AUDIT Biju Moore Strichardma n Work Phone: QJ-Fzcrwovogj-Rjsdl Work Phone: Start: 12-09-2021 End: 12-09-2021 Emergency department patient visit Dr. Biju Lobo Facility:[id number] Start: [facility],[id number], Status: Pen, Time: 8:00 PM Biju Teresa Yamil Work Phone: EZ-Znfyolkpyy-Mcuhg Work Phone: Start: 12-08-2021 AUDIT Biju Moore Stutzma n Work Phone: PK-Gsbrujcmdv-Ulxwro [address] [place] Work Phone: Start: 12-07-2021 Chart Update Biju Moore Strichardma n Work Phone: OA-Nbdtrmkouv-Zzkxs Work Phone: Start: 11-27-2021 Office outpatient vi sit 25 minutes Biju Lobo Work Phone: [facility] [address] [place] Work Phone: Start: 11-27-2021 Patient encounter procedure Biju Lobo Work Phone: [facility] [facility] Work Phone: Start: 11-22-2021 AUDIT Biju Moore Stutzma n Work Phone: WU-Zmvqjraar-Vtkjy 204 Work Phone: Start: 11-14-2021 Office outpatient ne w 45 minutes Biju Loob Work Phone: JV-Hjofsiitxu-Aegbza [address] [place] Work Phone: Start: 11-01-2021 Patient encounter procedure Biju Lobo Work Phone: [facility]-[place] [facility] Work Phone: Start: 10-26-2021 AUDIT Biju Reesma n Work Phone: XW-Kqranvveef-Sctes Work Phone: Start: 10-11-2021 Current tobacco non- user cad cap copd pv dm Biju Lobo Work Phone: MI-Dbavjmujgm-Hdhjdq [address] [place] Work Phone: Start: 09-18-2021 End: 09-18-2021 [facility] Start: 09-14-2021 Chart Update Biju Moore Strichardma n Work Phone: KM-Sdcvevvafm-Exzzq Work Phone: Start: 09-11-2021 Office outpatient vi sit 25 minutes Biju Moore Yamil Work Phone: HM-Eyoozypevt-Jcqujd [address] [place] Work Phone: Start: 09-05-2021 End: 09-05-2021 Patient encounter procedure [facility] Start: 06-23-2021 NPV, Provider: Jayne Godinez, Status: Pen, Time: 2:30 PM Biju Lobo Work Phone: [facility] [facility] Work Phone: Start: 06-21-2021 Office outpatient vi sit 15 minutes Biju Lobo Work Phone: [facility]-[place] [address] Work Phone: Start: 06-21-2021 Patient encounter procedure Biju Reesman Work Phone: [facility] [facility] Work Phone: Start: 06-07-2021 AUDIT Biju Reesma n Work Phone: SH-Oclhfgkp-Cnjykmg Benítez Work Phone: Start: 06-03-2021 End: 06-08-2021 Evaluation and management of inpatient Yvan Walker [facility] Lksd 60 Rm [id number] Start: 05-17-2021 AUDIT Biju Moore Stutzma n Work Phone: [facility] [facility] Work Phone: Start: 05-02-2021 Office outpatient vi sit 25 minutes Biju Lobo Work Phone: [facility]ixy[facility] Work Phone: Start: 05-02-2021 Patient encounter procedure Biju Lobo Work Phone: QM-Puircfucwqevqu-Pweb trammell Work Phone: Start: 04-19-2021 AUDIT Biju A Stutzma n Work Phone: RJ-Qfyocrwuuhxwum-Kmwq MOB02 [place] Work Phone: Start: 04-06-2021 AUDIT Biju A Stutzma n Work Phone: WC-Sydazdvsxohcyq-Bwwk man Voice Work Phone: Start: 04-05-2021 Patient encounter procedure Biju A Yamil Work Phone: CE-Ikcbhbugs-Qkhrqmq 4200 Work Phone: Start: 04-05-2021 VIRFUVICKIE, Provider : Kailyn Michel, Status: Pen, Time: 1:00 PM Biju A Yamil Work Phone: HI-Uyblrywffy-Bacdh 204 [place] Work Phone: Start: 04-03-2021 Office outpatient vi sit 25 minutes Biju A Yamil Work Phone: RV-Lwainjzqsy-Odxeq 204 [place] Work Phone: Start: 03-22-2021 NPVPRE, Provider: Macario Bond, Status: Pen, Time: 2:00 PM Biju A Yamil Work Phone: UF-Isbcsedfqcacbq-Wxew man Voice Work Phone: Start: 03-22-2021 Office outpatient ne w 45 minutes Biju A Yamil Work Phone: [facility] [facility] Work Phone: Start: 03-22-2021 Patient encounter procedure Biju A Yamil Work Phone: [facility] [facility] Work Phone: Start: 03-08-2021 Chart Update Biju Reesma n Work Phone: WX-Gctjjinvtv-Fzgdi 204 [place] Work Phone: Start: 03-07-2021 Office consultation new/estab patient 60 min Biju A Yamil Work Phone: FF-Aopfyzqfslmlsz-Naie man Voice Work Phone: Start: 03-01-2021 FUV, Provider: Rj Trammell II, Status: Pen, Time: 3:00 PM Biju A Yamil Work Phone: CJ-Spgynytomr-Kmxmd 204 [place] Work Phone: Start: 03-01-2021 Office outpatient ne w 45 minutes Biju Lobo Work Phone: PF-Blywaew-Uyuasvg Work Phone: Start: 02-27-2021 Office consultation new/estab patient 80 min Biju Lobo Work Phone: JA-Lbayutpvpj-Rggjy 204 [place] Work Phone: Start: 02-24-2021 Chart Update Biju Rose n Work Phone: ZY-Ifrlvygf-Jsxtvsze 1500 Work Phone: Start: 01-25-2021 Office outpatient ne w 45 minutes Biju Lobo Work Phone: BE-Wfwsiyb-Qwlqpwgv HC 232 [place] Work Phone: Start: 12-07-2020 Patient encounter procedure Biju Lobo Work Phone: UC-Rgctpbdk-Oxaynkov 1500 Work Phone: Procedures Date Procedure Procedure [...] dip stick/tabl et rgnt auto w/o microscopy Rj Trammell MD Work Phone: Start: 09-07-2023 Electrolyte panel Beatris Larose MD Work Phone: Start: 09-06-2023 Glucose measurement, blood Hemant Galvan MD Work Phone: Start: 09-06-2023 Creatinine blood Beatris Larose MD Work Phone: Start: 09-05-2023 Creatinine blood Beatris Larose MD Work Phone: Start: 09-04-2023 Creatinine blood Beatris Larose MD Work Phone: Start: 09-03-2023 Creatinine blood Beatris Larose MD Work Phone: Start: 09-02-2023 Radiologic exam ches t single view Efe Mcnulty MD Work Phone: Start: 09-02-2023 End: 09-02-2023 Tracheostomy planned separate procedure Hemant Galvan MD Work Phone: Start: 09-02-2023 CARDIAC [...] disease H/O right coronary artery stent placement Rj Trammell MD Work Phone: Start: 03-18-2023 Colonoscopy [...] Thyrotropin [Units/v olume] in Serum or Plasma Rj Trammell MD Work Phone: Start: 09-05-2021 CT of abdomen Start: 06-05-2021 Echocardiography Biju Teresa Lobo Work Phone: Start: 06-04-2021 Lipid 1996 panel - S joceline or Plasma Rj Trammell MD Work Phone: Start: 06-04-2021 End: 06-04-2021 EKG impression Gene Lemus Arthroscopy of knee Biju Teresa serrano Work Phone: Cardiac catheterization Biju Lobo Work Phone: Comment on above: [06/06/2021, Dr. Marcelle Pro]: RCA stented with a 3.5 x 26 mm Resolute Kelby stent; [06/06/2021, Dr. Marcelle Pro]: Severe 1-vessel [...] RSV VACCINE (1 - 1-dose 75+ series) [facility] Start: 06-04-2026 Lipid panel Lipid Panel [facility] Start: 10-19-2024 Influenza vaccination INFLUENZ A VACCINE (Season Ended) [facility] Start: 10-14-2024 End: 10-14-2024 Patient encounter procedure 10/14/2024 1:00 PM EDT Office Visit [facility] [address] [address] Hemant Galvan MD [facility] [address] [place] [address] [facility] Start: 09-06-2024 Potassium [Moles/vol ume] in Serum or Plasma POTASSIUM [facility] Start: 07-16-2024 Patient referral [facility] Work Phone: Start: 07-02-2024 Walking distance 6 minutes [facility] Start: 06-29-2024 Measurement of respiratory function [facility] Start: 06-24-2024 End: 06-24-2024 Patient encounter procedure 06/24/2024 11:20 AM EDT Office Visit [facility] [address] [address] Hemant Galvan MD [address] [place] [address] [facility] Start: 06-19-2024 Patient referral [facility] Work Phone: Start: 06-03-2024 End: 06-03-2024 Patient encounter procedure 06/03/2024 1:00 PM EDT Office Visit [facility] [address] [facility] [address] [place] [address] Rj Trammell MD [address] [place], [place] [id number] [facility] Start: 05-19-2024 End: 05-28-2024 Prostate specific Ag [Mass/volume] in Serum or Plasma Prostate Specific Antigen Lab Routine Nocturia Expected: 05/19/2024 (Approximate), Expires: 05/28/2024 [facility] Service Area Work Phone: Comment on above: Expected: 05/19/2024 (Approximate), Expires: 05/28/2024 Start: 03-25-2024 End: 03-25-2024 Patient encounter procedure 03/25/2024 11:20 AM EST Office Visit [facility] [address] [place] [phone] Hemant Galvan MD [address] [place] [address] [facility] Start: 03-08-2024 [facility] Start: 03-08-2024 [facility] Start: 12-27-2023 End: 12-27-2023 Patient encounter procedure 12/27/2023 11:00 AM EST Office Visit [facility] [address] [place] [address] Hemant Galvan MD [address] [place] [address] [facility] Start: 10-20-2023 COVID-19 VACCINE ( season) COVID-19 VACCINE () [facility] Start: 10-20-2023 Influenza vaccination INFLUENZA VACC INE (#1) [facility] Start: 10-08-2023 End: 10-08-2023 Patient encounter procedure 10/08/2023 3:00 PM EDT Office Visit [facility] [address] [facility] [address] [place] [phone] Nevin Rogers MD PhD [address] [facility] [address] [place] [address] [facility] Start: 10-02-2023 End: 10-02-2023 Patient encounter procedure 10/02/2023 9:20 AM EDT Office Visit [facility] [address] [place] [address] Hemant Galvan MD [address] [facility] [address] [facility] [address] [facility] [address] [place] [address] [facility] Start: 07-10-2023 End: 07-09-2024 CT Neck W contrast IV CT NECK WITH CONTRAST Imaging Routine Bilateral vocal fold paralysis Stridor Expected: 07/10/2023, Expires: 07/09/2024 [facility] Comment on above: Expected: 07/10/2023 , Expires: 07/09/2024 Start: 06-12-2023 End: 06-12-2023 Patient encounter procedure 06/12/2023 2:30 PM EDT Office Visit [facility] [address] [facility] [address] [place] [phone] Nevin Rogers MD PhD [address] [facility] [address] [place] [address] [facility] Start: 05-16-2023 Patient referral [facility] Work Phone: Start: 05-14-2023 Abdominal aortic ane urysm screening [facility] Start: 05-14-2023 Pneumococcal vaccination PNEUM OCOCCAL VACCINE SERIES (1 of PCV) [facility] Start: 05-03-2023 [facility] Start: 03-26-2023 FUV, Provider: Nevin Rogers, Status: Pen, Time: 3:30 PM FUV, Provider: Nevin Rogers, Status: Pen, Time: 3:30 PM JA-Gijlsypitp-Dboami 140 [place] Work Phone: Start: 03-19-2023 Patient discharge [facility] Start: 03-16-2023 End: 03-16-2023 [facility] Start: 03-16-2023 Following clinical pathway protocol [facility] Start: 03-16-2023 Ambulation without limitation [facility] Start: 03-16-2023 Assessment of risk o f venous thromboembolism [facility] Start: 03-16-2023 Fluid intake encouragement [facility] Start: 03-16-2023 Insertion of cathete r into peripheral vein [facility] Start: 03-16-2023 Measuring intake and output [facility] Start: 03-16-2023 Notification of physician [facility] Start: 03-16-2023 Providing care accor ding to standard [facility] Start: 03-16-2023 Referral to gastroenterology service [facility] Start: 03-16-2023 [facility] Start: 03-16-2023 Oxygen therapy [facility] Start: 03-16-2023 Streptococcus pneumo niae antigen assay [facility] Start: 03-16-2023 [facility] Start: 03-16-2023 Bacteria identified in Blood by Culture Blood Culture [facility] Start: 03-16-2023 Bacteria identified in Urine by Culture [facility] Start: 03-16-2023 Lactoferrin [Presenc e] in Stool by Immunoassay [facility] Start: 03-16-2023 Measurement of occul t blood in stool specimen using immunoassay [facility] Start: 03-16-2023 Hospital admission, emergency, from emergency room, medical nature [facility] Start: 03-16-2023 Verification routine [facility] Start: 03-16-2023 Admission procedure [facility] Start: 03-16-2023 End: 03-16-2023 Blood culture [facility] Start: 03-16-2023 Giardia lamblia anti gen assay [facility] Start: 03-16-2023 Protein measurement [facility] Start: 03-16-2023 Blood chemistry [facility] Start: 03-16-2023 Triacylglycerol lipa se measurement [facility] Start: 03-16-2023 [facility] Start: 03-16-2023 Enteric precautions [facility] Start: 03-16-2023 Inhalation therapy procedure [facility] Start: 12-18-2022 Creatinine measurement Creatinine Le salvador [facility] Start: 12-18-2022 Potassium measurement Potassium Leve l [facility] Start: 10-19-2022 COVID-19 Vaccine ( season) COVID-19 Vaccine () [facility] Start: 09-25-2022 FUV, Provider: Nevin Rogers, Status: Pen, Time: 3:45 PM FUV, Provider: Nevin Rogers, Status: Pen, Time: 3:45 PM ME-Ezhqgsvfcg-Ulkpva 140 [place] Work Phone: Start: 09-11-2022 Thyroid stimulating hormone measurement TSH Level [facility] Start: 06-05-2022 Echocardiography Echocardiogram [facility] Start: 06-04-2022 Diabetes mellitus screening Diabetes Screening [facility] Start: 04-30-2022 FUVPRE, Provider: Leta Lu, Status: Pen, Time: 1:00 PM FUVPRE, Provider: Leta Lu, Status: Pen, Time: 1:00 PM [facility] [facility] 6 Sleep Work Phone: Start: 03-28-2022 FUV, Provider: Rj Trammell II, Status: Pen, Time: 1:15 PM FUV, Provider: Rj Trammell II, Status: Pen, Time: 1:15 PM ZR-Ldegtsn-Gsqernu Work Phone: Start: 03-27-2022 FUV, Provider: Nevin [...] Nevin Rogers, Status: Pen, Time: 3:45 PM MX-Mtzwgngsoj-Qxvwwo 140 [place] Work Phone: Start: 01-24-2022 End: 01-24-2022 [facility] Start: 01-08-2022 FUVPRE, Provider: Leta Lu, Status: Pen, Time: 1:30 PM FUVPRE, Provider: Leta Lu, Status: Pen, Time: 1:30 PM [facility] [facility] Work Phone: Start: 01-08-2022 METHCHOL, Provider: KI JOLLY FLR PFT RM1,PULM, Status: Pen, Time: 11:00 AM METHCHOL, Provider: KI MADRID 6TH FLR PFT RM1,PULM, Status: Pen, Time: 11:00 AM [facility] [facility] Sleep Work Phone: Start: 01-08-2022 SPIROMETRY, Provider : KI MADRID 6TH FLR PFT RM1,PULM, Status: Pen, Time: 10:30 AM SPIROMETRY, Provider: KI MADRID 6TH FLR PFT RM1,PULM, Status: Pen, Time: 10:30 AM [facility] [facility] Work Phone: Start: 12-08-2021 ADLTPSG, Provider: [facility] RM 2,[id number], Status: Pen, Time: 8:00 PM ADLTPSG, Provider: [facility] RM 2,[id number], Status: Pen, Time: 8:00 PM HY-Pzgxiglrx-Gkwpl 204 Work Phone: Start: 11-27-2021 FUVPRE, Provider: Leta Lu, Status: Pen, Time: 1:30 PM FUVPRE, Provider: Leta Lu, Status: Pen, Time: 1:30 PM MP-Pulmonary Medicine-[facility] Work Phone: Start: 11-14-2021 NPV, Provider: Nevin Rogers, Status: Pen, Time: 3:00 PM NPV, Provider: Nevin Rogers, Status: Pen, Time: 3:00 PM OU-Qposistzdc-Dvtymo 140 [place] Work Phone: Start: 11-01-2021 Patient encounter procedure [facility] Start: 10-11-2021 FUV, Provider: Jayne Godinez, Status: Pen, Time: 1:30 PM FUV, Provider: Jayne Godinez, Status: Pen, Time: 1:30 PM EF-Dbyqsvpssf-Fzlbcv 140 [place] Work Phone: Start: 10-04-2021 Patient [...] Princess Mireille, Status: Pen, Time: 2:30 PM VA-Piieqsvysd-Nttfj 204 DO Work Phone: Start: 06-26-2021 Patient encounter procedure [facility] [place] [facility] Start: 06-23-2021 NPV, Provider: Jayne Godinez, Status: Pen, Time: 2:30 PM NPV, Provider: Jayne Godinez, Status: Pen, Time: 2:30 PM SW-Ghrhzcro-Fputxdy Benítez Work Phone: Start: 06-23-2021 Patient encounter procedure [facility] Start: 06-21-2021 FUVPRE, Provider: Macario Bond, Status: Pen, Time: 1:30 PM FUVPRE, Provider: Macario Bond, Status: Pen, Time: 1:30 PM [facility] [facility] Work Phone: Start: 06-21-2021 Patient encounter procedure [facility] Start: 06-07-2021 Coronary artery disease Olmos ry artery disease Date: 07-Jun-2021 [facility] Start: 06-07-2021 End: 06-08-2022 Polyethylene Glycol 17 gram Oral Powder Daily PRN ; Powder for Reconstitution (MIRALAX)DOSE = 17 gram(s) Oral 2 Times a Day Start: 07-Jun-2021 End: 07-Jun-2022 Ordered: 07-Jun-2021 Leandra Pollack Intent [facility] Start: 06-05-2021 End: 06-06-2022 Albuterol 90 micrograms/ Inhalation MDI 2 inhalation Every 6 Hours PRN ; (PROVENTIL, VENTOLIN)DOSE = 2 inhalation Every 4 Hours via MDI, PRN Shortness of BreathNotes from Pharmacy: [facility] Start: 05-Jun-2021 End: 05-Jun-2022 Ordered: 05-Jun-2021 Gene Lemus Intent [facility] Start: 06-04-2021 End: 06-04-2022 [facility] Start: 05-02-2021 FUV, Provider: Sudheer Mcfarlane, Status: Pen, Time: 9:45 AM FUV, Provider: Sudheer Mcfarlane, Status: Pen, Time: 9:45 AM [facility] Work Phone: Start: 05-02-2021 FUV, Provider: Sudheer Mcfarlane, Status: Pen, Time: 9:40 AM FUV, Provider: Sudheer Mcfarlane, Status: Pen, Time: 9:40 AM RB-Ewnbwyymjmiemz-Cd idman Voice Work Phone: Start: 04-05-2021 VIRFUVHOME, Provider : Kailyn Michel, Status: Pen, Time: 1:00 PM VIRFUVHOME, Provider: Kailyn Michel, Status: Pen, Time: 1:00 PM OJ-Cxpafipotsynbv-Kg idman Voice Work Phone: Start: 04-03-2021 FUV, Provider: Princess Mireille, Status: Pen, Time: 2:30 PM FUV, Provider: Princess Mireille, Status: Pen, Time: 2:30 PM UV-Pzkqaqjjqe-Qagbi 204 DO Work Phone: Start: 03-29-2021 CYSTOSCOPY, Provider : [facility]OLOGY PROCEDURE RM,[id number], Status: Pen, Time: 2:45 PM CYSTOSCOPY, Provider: [facility] UROLOGY PROCEDURE RM,[id number], Status: Pen, Time: 2:45 PM IM-Mqcjvrt-Jaasxlc Work Phone: Start: 03-22-2021 NPVPRE, Provider: Macario Bond, Status: Pen, Time: 2:00 PM NPVPRE, Provider: Macario Bond, Status: Pen, Time: 2:00 PM [facility] Work Phone: Start: 03-22-2021 NPV, Provider: Quita Zarate, Status: Pen, Time: 9:00 AM NPV, Provider: Quita Zarate, Status: Pen, Time: 9:00 AM TN-Pvcfxala-Rtcfiyob 1500 Work Phone: Start: 03-07-2021 NPV, Provider: Sudheer Mcfarlane, Status: Pen, Time: 11:00 AM NPV, Provider: Sudheer Mcfarlane, Status: Pen, Time: 11:00 AM JK-Ymjpnlhlso-Oejpq 204 DO Work Phone: Start: 03-01-2021 FUV, Provider: Rj Trammell II, Status: Pen, Time: 3:00 PM FUV, Provider: Rj Trammell II, Status: Pen, Time: 3:00 PM LG-Ppuixvuu-Pqirofiw 1500 Work Phone: Start: 02-27-2021 NPV, Provider: Princess Mireille, Status: Pen, Time: 2:00 PM NPV, Provider: Princess Mireille, Status: Pen, Time: 2:00 PM EQ-Cowssmix-Pracecfb 1500 Work Phone: Start: 02-22-2021 FUV, Provider: Rj Trammell II, Status: Pen, Time: 3:45 PM FUV, Provider: Rj Trammell II, Status: Pen, Time: 3:45 PM JX-Wzskotm-Svglvceo HC 232 DO Work Phone: Start: 2018 RSV patient s and/or patients aged 60+ years (1 - 1-dose 60+ series) RSV patients and/or patients aged 60+ years (1 - 1-dose 60+ series) [facility] Start: 2018 RSV VACCINE (1 - 1-d ose 60+ series) RSV VACCINE (1 - 1-dose 60+ series) [facility] Start: 2013 Prostate specific an tigen measurement PROSTATE CANCER SCREENING DISCUSSION [facility] Start: 2008 Prostate specific an tigen measurement PROSTATE CANCER SCREENING DISCUSSION [facility] Start: 2008 Zoster vaccine hzv l david for subcutaneous use ZOSTER (SHINGLES) VACCINE (1 of 2) [facility] Start: 2008 Zoster Vaccines (1 of 2) Zoste r Vaccines (1 of 2) [facility] Start: 05-14-2003 Screening for malign ant neoplasm of colon COLORECTAL CANCER SCREENING DISCUSSION [facility] Start: 1998 Lipid panel LIPID SCREENING [facility] Start: 1980 DTaP/Tdap/Td Vaccine s (1 - Tdap) DTaP/Tdap/Td Vaccines (1 - Tdap) [facility] Start: 1977 Third diphtheria, te tanus and acellular pertussis (DTaP) vaccination TDAP (ADULT) [facility] Start: 1976 Hepatitis C screening Hepatitis C Sc rachel [facility] Start: 1964 Pneumococcal Vaccine : 65+ Years (1 of 2 - PCV) Pneumococcal Vaccine: 65+ Years (1 of 2 - PCV) [facility] Start: 05-14-1959 MMR Vaccines (1 of 1 - Standard series) MMR Vaccines (1 of 1 - Standard series) [facility] Start: 1958 Annual wellness visit Medicare Initial Physical (IPPE) [facility] Start: 1958 Hepatitis C screening HEPATITI S C VIRUS SCREENING [facility] Start: 1958 Screening for malign ant neoplasm of colon [facility] Start: 1958 Tetanus vaccination TETANUS [facility] Start: 1958 Thyroid stimulating hormone measurement TSH [facility] Bilirubin measuremen t, urine [facility] Clostridioides diffi cile DNA [Presence] in Unspecified specimen by YOLY with probe detection [facility] CT Chest WO contrast [facility] CT Chest WO contrast [facility] CTA Head vessels and Neck vessels W contrast IV [facility] Exercise tolerance test [facility] Exercise tolerance test [facility] Gastrointestinal pathogens panel - Stool by YOLY with probe detection [facility] Hemoglobin [Presence ] in Urine [facility] Lactoferrin [Presenc e] in Stool by Immunoassay [facility] Laryngoscopy flx/rgd telescopic w/stroboscopy LA LARYNGOSCOPY FLX/RGD TELESCOPIC W/STROBOSCOPY LA Charge Routine Bilateral vocal fold paralysis Stridor Dyspnea on exertion Ordered: 07/10/2023 [facility] Comment on above: Ordered: 07/10/2023 Legionella pneumophi la Ag [Presence] in Urine [facility] Lipid 1996 panel - S joceline or Plasma [facility] Magnesium [Mass/volu me] in Serum or Plasma [facility] Measurement of keton es in urine using dipstick [facility] Measurement of respiratory function [facility] Measurement of respiratory function [facility] Microscopic urinalysis [facility] MR Brain WO and W contrast IV [facility] NM Heart Views W str ess and W radionuclide IV [facility] Organism count, microscopic method [facility] Ova and parasites identified in Unspecified specimen by Light microscopy [facility] Ova and parasites identified in Unspecified specimen by Light microscopy [facility] Patient Education [facility] Work Phone: Patient referral [facility] Work Phone: pH of Urine [facility] Polysomnography [facility] Serum inorganic phos phate measurement [facility] Specific gravity of Urine [facility] Urine dipstick for glucose [facility] Urine dipstick for leukocyte esterase [facility] Urine dipstick for nitrite [facility] Urine dipstick for protein [facility] Urine examination [facility] Urine microscopy: epithelial cells [facility] Urine microscopy: re d cells [facility] Urobilinogen [Presen ce] in Urine [facility] Carotid arteries [facility] US Carotid arteries [facility] US Heart [facility] Videoswallow [facility] White blood cell count [facility] Immunizations Immunization Date Immunization Notes Care Provider Fa joie 06-17-2023 Pneumococcal Vaccine PCV20 (Prevnar 20) Dr. Biju Lobo DO Work Phone: [facility] 12-17-2022 influenza, injectabl e, quadrivalent, preservative free Dr. Biju Lobo Work Phone: [facility] 12-17-2022 influenza virus vacc ine, unspecified formulation Hemant Galvan MD Work Phone: [facility] 12-22-2020 Moderna COVID-19 Vac cine 100 MCG/0.5ML Intramuscular Suspension Biju Lobo [place] [address] Work Phone: 04-07-2020 Moderna COVID-19 Vac cine 100 MCG/0.5ML Intramuscular Suspension Biju Lobo Work Phone: [facility] 6 Work Phone: 03-10-2020 Moderna COVID-19 Vac cine 100 MCG/0.5ML Intramuscular Suspension Biju Lobo Work Phone: [facility] Work Phone: 12-21-2018 Influenza, injectabl e, Madin Lyme Canine Kidney, quadrivalent with preservative Biju Lobo Work Phone: [facility] Work Phone: 12-31-2012 influenza, seasonal, injectable Biju Lobo Work Phone: [facility] Work Phone: Payers Date Payer Category Payer Unknown 0 2023 Self-pay [id number] 2023 Managed Care (unspecified) MEDICARE SUPPLEMENT [id number] 2023 Medicare [id number] 2023 Unknown 2023 Medicare [id number] 2023 Unknown [id number] 2021 Unknown [id number] 1960 Unknown [id number] 2.16.840.1.945794.3.579.2. 1069 1958 Unknown [id number] 2.16.840.1.029901.3.579.2. 356 1958 Unknown [id number] 2.16.840.1.165730.3.579.2. 1245 1958 Unknown [id number] 2.16.840.1.303155.3.579.2. 1244 1958 Unknown [id number] 2.16.840.1.013873.3.579.2. 594 1958 Unknown [id number] 2.16.840.1.486009.3.579.2. 594 1958 Unknown [id number] 2.16.840.1.208326.3.579.2. 594 1958 Unknown [id number] 2.16.840.1.631651.3.579.2. 594 1958 Unknown [id number] 2.16.840.1.685156.3.579.2. 594 1958 Unknown [id number] 2.16.840.1.425883.3.579.2. 594 1958 Unknown [id number] 2.16.840.1.585157.3.579.2. 594 1958 Unknown [id number] 2.16.840.1.025632.3.579.2. 594 Unknown [id number] [facility] PACKAGE PLAN [id number] Unknown [id number] 2.16.840.1.458050.3.579.2. 462 Unknown [id number] 2.840.1.695853.3.579.2. 462 Unknown [id number] 2.16840.1.772049.3.579.2. 462 Unknown [id number] 2.16840.1.704603.3.579.2. 462 Unknown [id number] 2.840.1.119528.3.579.2. 462 Unknown [id number] 2.840.1.197884.3.579.2. 462 Unknown [id number] 2.840.1.622950.3.579.2. 462 Unknown [id number] 2.840.1.612036.3.579.2. 462 Unknown [id number] 2.840.1.180176.3.579.2. 462 Unknown [id number] 2.840.1.801390.3.579.2. 462 Unknown [id number] 2.840.1.915189.3.579.2. 462 Unknown [id number] 2.840.1.808496.3.579.2. 462 Unknown [id number] 2.840.1.002042.3.579.2. 462 Unknown [id number] 2.840.1.770542.3.579.2. 462 Unknown [id number] 2.840.1.751626.3.579.2. 462 Unknown [id number] 2.840.1.447620.3.579.2. 462 Unknown [id number] 2.840.1.872945.3.579.2. 462 Unknown [id number] 2.840.1.581772.3.579.2. 462 Unknown [id number] 2.840.1.755998.3.579.2. 462 Unknown [id number] 2.16.840.1.082604.3.579.2. 462 Unknown [id number] 2.16.840.1.707990.3.579.2. 462 Unknown [id number] 2.16.840.1.990239.3.579.2. 462 Unknown [id number] 2.16.840.1.282405.3.579.2. 462 Unknown [id number] 2.16.840.1.991539.3.579.2. 462 Unknown [id number] 2.16.840.1.695127.3.579.2. 462 Unknown [id number] 2.16.840.1.531197.3.579.2. 462 Unknown [id number] 2.16.840.1.476551.3.579.2. 462 Unknown [id number] 2.16.840.1.853456.3.579.2. 462 Unknown [id number] 2.16.840.1.199261.3.579.2. 462 Unknown [id number] 2.16.840.1.974759.3.579.2. 462 Unknown [id number] 2.16.840.1.110843.3.579.2. 462 Unknown [id number] 2.16.840.1.557935.3.579.2. 462 Unknown [id number] 2.16.840.1.964828.3.579.2. 462 Unknown [id number] 2.16.840.1.798540.3.579.2. 462 Unknown [id number] 2.16.840.1.779690.3.579.2. 462 Unknown [id number] 2.16.840.1.798786.3.579.2. 462 Unknown [id number] 2.16.840.1.376992.3.579.2. 462 Unknown [id number] 2.16.840.1.970634.3.579.2. 462 Unknown [id number] 2.16.840.1.482064.3.579.2. 462 Unknown [id number] 2.16.840.1.368410.3.579.2. 462 Social History Date Type Detail Facility Start: 05-29-2023 End: 06-24-2024 Current every day smoker Current every day smoker SH-Gvtogab-Wwxjufes HC 232 DO Work Phone: Start: 01-13-2021 End: 06-18-2023 Tobacco smoking consumption unknown [facility] Start: 1960 Sex Assigned At Male W [facility] Start: 03-26-2023 End: 09-07-2024 Tobacco smoking status NHIS Ex-smoker [facility] End: 02-18-2021 History of tobacco use Current smoker [facility] Work Phone: End: 02-18-2021 History of tobacco use Cigarette Smoker [facility] Work Phone: Start: 03-26-2023 End: 07-10-2023 Tobacco use and exposure Smokeless tobacco non-user [facility] Work Phone: Start: 05-29-2023 End: 06-24-2024 Tobacco use panel [facility] Work Phone: Start: 1960 [facility] Start: 05-19-2023 End: 05-29-2023 Exposure to SARS-CoV-2 (event) Not sure [facility] Start: 07-10-2023 End: 06-24-2024 Alcoholic beverage intake Ex-drinker (finding) [facility] Adolescent depressio n screening assessment 0 [facility] Has the electric, gas, oil, or water company threatened to shut off services in your home in past 12Mo No [facility] (I/We) worried whether (my/our) food would run out before (I/we) got money to buy more. Never true [facility] Start: 03-19-2024 Gender identity Identifies as male gender (finding) [facility] Start: 03-19-2024 Sexual orientation Heterosexual (priya gaxiola) [facility] Start: 06-28-2023 End: 04-24-2024 Sex Male (finding) [facility] NEGATED: Highlighted row Denies Current every day smoker Denies Current every day smoker [facility] [facility] Work Phone: Goals Date Patient Goal Desired Activity /State Functional Status Date Assessment Result Facility 09-02-2023 Are you deaf, or do you have serious difficulty hearing No 09/02/2023 6:00 PM EDT Reyna Ta RN No [facility] 09-02-2023 Are you blind, or do you have serious difficulty seeing, even when wearing glasses No 09/02/2023 6:00 PM Reyna Tolliver RN No [facility] 09-02-2023 Do you have serious difficulty walking or climbing stairs Yes 09/02/2023 6:00 PM EDReyna Florez RN Yes [facility] 09-02-2023 Do you have difficul ty dressing or bathing No 09/02/2023 6:00 PM Reyna Tolliver, RN No [facility] 09-02-2023 Because of a physica l, mental, or emotional condition, do you have difficulty doing errands alone such as visiting a physician's office or shopping No 09/02/2023 6:00 PM EDReyna Florez RN No [facility] 03-19-2023 Functional status Ambulates [facility] Work Phone: Functional observable [facility] Mental Status Date Assessment Result Facility 09-02-2023 Because of a physica l, mental, or emotional condition, do you have serious difficulty concentrating, remembering, or making decisions Yes 09/02/2023 6:00 PM EDReyna Florez RN Yes [facility] 03-19-2023 Cognitive function Voice/Name [facility] Work Phone: 06-05-2021 Cognitive functi ons :37 [facility] Clinical Notes 02-27-2019 to 09-07-2024 Note Date & Type Note Facility 09-07-2024 History and physi minh note Note Date/Time September 07, 2024 6:51pm [facility] Pulmonary Rehab Reports [address] [place] [address] [place] - History & Physical MR#: [id number] Acct: [id number] Name: FREDDIE COLE Rep #:[id number] : 1960 64 From: Jono Perkins BS, RVT PCP: Dr. Biju Lobo DO History of Present Illness General Arrival date:: 09/07/24 Arrival time:: 14:01 Date of Referral:: 07/16/24 Date of Evaluation: 09/07/24 Referring Physician: Dr. Richard Munoz Primary Diagnosis: COPD Gold III Severe History of Present Pulmonary Event mMRC Breathless Scale: When is the patient short of breath? Y/N Grade: Description of Breathlessness: 0 I only get breathless with strenuous exercise. 1 I get short of breath when hurrying on level ground or walking up a slight hill. 2 On level ground, I walk slower than people of the same age because of breathless, or have to stop for breath when walking at my own pace. 3 I stop for breath after walking 100 yards or after a few minutes on level ground. 4 I am too breathless to leave the house or I am breathless when dressing. Respiratory Problems: Yes Retain Secretions, Fatigue, Wheezing, Able to Speak inFull Sentences, Dyspnea at Rest, Dyspnea with Activity, Dyspnea Lying Down Flat and Cough with Secretions; No Limited Range of Motion, Chest Pain, Dizziness, Ankle Swelling, Hoarseness, Anxiety or Panic Medications Home Medications levothyroxine 150 mcg tablet (Synthroid) 150 mcg PO DAILY thyroid 01/13/21 aspirin 81 mg chewable tablet (Luis Alberto Chewable Low Dose Aspirin) 81 mg PO DAILY heart health 01/24/22 tamsulosin 0.4 mg capsule 0.4 mg PO DAILY prostate 05/17/22 Handicap placard #1 ea 10/01/22 budesonide 1 mg/2 mL suspension for nebulization 1 mg (2 mL) inhalation BID breathing #120 mL 10/17/23 nitrofurantoin monohydrate/macrocrystals 100 mg capsule 100 mg PO MOWEFR [id number]/02/24 furosemide 40 mg tablet (Lasix) 20 mg (1/2 x 40 mg) PO 1200 PRN Leg swelling 30 days #0 tabs 11/02/23 clopidogrel 75 mg tablet 75 mg PO DAILY anit platelet #90 tabs 04/06/24 potassium chloride 20 mEq tablet,extended release 20 meq PO DAILY supplement #90tabs 04/07/24 rosuvastatin 5 mg tablet 5 mg PO DAILY cholesterol #90 tabs 04/10/24 formoterol fumarate 20 mcg/2 mL solution for nebulization (Perforomist) 2 ml inhalation BID #120 mL 04/15/24 nebulizer kits #1 ea 04/15/24 revefenacin 175 mcg/3 mL solution for nebulization (Yupelri) 175 mcg (3 mL) inhalation QDAY #90 mL 04/15/24 ipratropium 0.5 mg-albuterol 3 mg (2.5 mg base)/3 mL nebulization soln 3 ml inhalation Q4H PRN PRN SOB &/OR WHEEZING #360 mL 05/20/24 guaifenesin 1,200 mg tablet, extended release 12 hr (Mucinex) 1,200 mg PO .QD #30 tabs 05/27/24 prednisone 10 mg tablet 10 mg PO QDAY #30 tabs 07/15/24 atropine 1 % eye drops See Rx Instructions buccal DAILY secretions #15 mL 07/23/24 carbidopa 25 mg-levodopa 100 mg tablet 2 tab PO TID parkinsons #540 tabs 07/23/24 fludrocortisone 0.1 mg tablet 0.2 mg (2 x 0.1 mg) PO QAM #180 tabs 07/23/24 ropinirole 1 mg tablet 1 mg PO TID #90 tabs 07/23/24 Allergies Allergies vibegron (From Gemtesa) Allergy (Severe, Verified 09/02/24 11:14) Rash Secretions Thick:: Yes Amount/Day:: 2 TBSP AM: Yes Sleep Disorder Evaluation Hx of Sleep Apnea: Yes Do you snore loudly (louder than talking or can be heard through closed doors)?:No Do you often feel tired/ fatigued/ sleepy during daytime?: No Has anyone observed you stop breathing during sleep?: No History of Hypertension (for STOP score): Yes STOP Results: Negative Medical Utilization Medical Devices Do you use a peak flow meter at home?: No Do you use a spacer device with your inhalers?: No Medical Utilization Number of hospital visits in the last year?: 0 Number of emergency room visits in the last year?: 2 Do you see your physician on a regular schedule?: Yes How often?: every 3 months Advanced Directives Advanced Directives Do you have a Healthcare Power of Engraver Wood?: Yes Living Will: Yes Advance Directives Information Provided: Yes Advance Directives on File: No DNR Order?:: No Past Medical History Covid-19 Screening Physicial Symptoms Other Clinical Concerns Exposure Risk Pertinent Comorbidities 65 years or older:: Yes Has a chronic lung disease or moderate to severe asthma:: Yes Has a serious heart condition:: Yes Medical History Medical History Transient hypotension Acute dyspnea Acute [...] vocal cords High cholesterol Hypothyroidism Surgical History Surgical History Status post tracheostomy 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 artery (~06/06/21) H/O cardiac catheterization (~06/06/21) Hx of arthroscopy of knee H/O knee surgery H/O thyroidectomy Significant Family History Family History Father COPD (chronic obstructive pulmonary disease) Emphysema lung Myocardial infarction Mother Parkinsons disease Malignant melanoma Social History Smoking History Smoking Status: Former smoker Years Smokin (stopped 5 years ago) Packs Smoked per Day: 1 Alcohol Use Alcohol Usage: No Substance Abuse Hx Substance Use: No Occupation Occupation (List type of work in comments):: Retired Functioning ADL/IADL Current Ability Current Ability: Independent: Self-Care (e.g.,grooming, dressing, & bathing), Independent: Ambulation, Independent: Transfer and Independent: Household tasks (e.g., light meal prep, laundry, shopping) Pt Functioning Prior to Problem Prior Functioning: Self-Care (e.g.,grooming, dressing, & bathing): Independent, Ambulation: Independent, Transfer: Independent and Household tasks (e.g., light meal prep, laundry, shopping): Independent Social Environment Status Marital Status: Current Living Arrangements Living Environment:: Spouse Children How many children do you have?: 1 Do any of your children live nearby?: Yes Safety Do you feel safe in your surroundings?: Yes Assistance Do you need any assistance at home?: no Review of Systems Review of Systems Review of Systems Respiratory: Reports Cough, SOB at Rest, SOB upon Exertion, Sputum production, Wheezing, Appetite, Normal and Sleep, Normal; Denies Dizziness/Lightheadedness, Fatigue, PVD or Sexual changes Pain Is Patient Pain Free?: Yes Risk Factor Assessment Chief Complaint Chief Complaint: COPD III Severe Vital Signs Pulse Rate: 80 Pulse Rhythm: Regular Pulse Ox: 91 Blood Pressure: 126/83 Diabetes Nutrition Referral for Diabetes: No Obesity Height: 5 ft 9 in Weight:: 203 lb Weight in Pounds: 203.0 lbs Body Mass Index (BMI): 29.9 Physical Activity Physical Inactivity: None Risk Stratification Risk Guidelines: Moderate Risk: Risk Factor for Smoking, Risk Factor for Diabetes, Risk Factor for Sedentary Lifestyle and Risk Factor for Depression andHighest Risk: Risk Factor for Dyslipidemia, Risk Factor for Diabetes, Risk Factor for Obesity and Risk Factor for Hypertension For Smoking Smoking Risk Guidelines For Dyslipidemia Dyslipidemia Risk Guidelines For Diabetes Mellitus Diabetes Risk Guidelines For Obesity/Overweight Obesity/Overweight Risk Guidelines For Hypertension Hypertension Risk Guidelines For Sedentary Lifestyle Sedentary Lifestyle Risk Guidelines For Depression Depression Risk Guidelines Motivation Motivation to Participate On a scale of 1 to 10, how prepared are you to commit to attending program?: 3 What do you see as barriers to successfully being able to complete the program?:nothing What do you see as the benefits of succesfully completing the program? In other words, what do you hope to get out of participating in the program?: improved energy Are there issues you are dealing with that will interfere with completing the program?: no Do you have a spouse or signficant other, family or friends who will help support you to complete the program?: yes Diagnostic Data Review 6 Minute Walk Test 6 Minute Walk Test: 755 feet Pulmonary Function Test FEV1:: 32 FVC:: 79 FEV1/FVC%:: 40 Gold Classification: GOLD class III(severe COPD)with FEV1/FVC<70, 30%</=FEV1< 50% predicted 09/07/24 1534 <Electronically signed by Jono SUGGS, RVT> Date _ Jono SUGGS, RVT Outcome assessment reviewed. Exercise plan approved as documented. Treatment plan and goals support patient needs/abilities. Continue with current plan. I certify the patient demonstrates improvement and remains willing and capable of participation. the patient continues to benefit from pulmonary services/training. The patient may continue at current intensity, endurance andmodality and progress per protocol. 09/07/24 1851<Electronically signed by Pj Almanza MD> Cosigner Signature: Date Pj Almanza MD CC: ~ Signed [facility] Work Phone: 1(435) 860-628007-21-2025 History and physical note [facility] Pulmonary Rehab Reports [address] [place] [address] [place] - History & Physical MR#: [id number] Acct: [id number] Name: FREDDIE COLE Rep #:[id number] : 1960 64 From: Jono Perkins BS, RVT PCP: Dr. Biju Lobo DO History of Present Illness General Arrival date:: 09/07/24 Arrival time:: 14:01 Date of Referral:: 07/16/24 Date of Evaluation: 09/07/24 Referring Physician: Dr. Richard Munoz Primary Diagnosis: COPD Gold III Severe History of Present Pulmonary Event mMRC Breathless Scale: When is the patient short of breath? Y/N Grade: Description of Breathlessness: 0 I only get breathless with strenuous exercise. 1 I get short of breath when hurrying on level ground or walking up a slight hill. 2 On level ground, I walk slower than people of the same age because of breathless, or have to stop for breath when walking at my own pace. 3 I stop for breath after walking 100 yards or after a few minutes on level ground. 4 I am too breathless to leave the house or I am breathless when dressing. Respiratory Problems: Yes Retain Secretions, Fatigue, Wheezing, Able to Speak inFull Sentences, Dyspnea at Rest, Dyspnea with Activity, Dyspnea Lying Down Flat and Cough with Secretions; No Limited Range of Motion, Chest Pain, Dizziness, Ankle Swelling, Hoarseness, Anxiety or Panic Medications Home Medications levothyroxine 150 mcg tablet (Synthroid) 150 mcg PO DAILY thyroid 01/13/21 aspirin 81 mg chewable tablet (Luis Alberto Chewable Low Dose Aspirin) 81 mg PO DAILY heart health 01/24/22 tamsulosin 0.4 mg capsule 0.4 mg PO DAILY prostate 05/17/22 Handicap placard #1 ea 10/01/22 budesonide 1 mg/2 mL suspension for nebulization 1 mg (2 mL) inhalation BID breathing #120 mL 10/17/23 nitrofurantoin monohydrate/macrocrystals 100 mg capsule 100 mg PO MOWEFR [id number]/02/24 furosemide 40 mg tablet (Lasix) 20 mg (1/2 x 40 mg) PO 1200 PRN Leg swelling 30 days #0 tabs 11/02/23 clopidogrel 75 mg tablet 75 mg PO DAILY anit platelet #90 tabs 04/06/24 potassium chloride 20 mEq tablet,extended release 20 meq PO DAILY supplement #90tabs 04/07/24 rosuvastatin 5 mg tablet 5 mg PO DAILY cholesterol #90 tabs 04/10/24 formoterol fumarate 20 mcg/2 mL solution for nebulization (Perforomist) 2 ml inhalation BID #120 mL04/15/24 nebulizer kits #1 ea 04/15/24 revefenacin 175 mcg/3 mL solution for nebulization (Yupelri) 175 mcg (3 mL) inhalation QDAY #90 mL 04/15/24 ipratropium 0.5 mg-albuterol 3 mg (2.5 mg base)/3 mL nebulization soln 3 ml inhalation Q4H PRN PRN SOB &/OR WHEEZING #360 mL 05/20/24 guaifenesin 1,200 mg tablet, extended release 12 hr (Mucinex) 1,200 mg PO .QD #30 tabs 05/27/24 prednisone 10 mg tablet 10 mg PO QDAY #30 tabs 07/15/24 atropine 1 % eye drops See Rx Instructions buccal DAILY secretions #15 mL 07/23/24 carbidopa 25 mg-levodopa 100 mg tablet 2 tab PO TID parkinsons #540 tabs 07/23/24 fludrocortisone 0.1 mg tablet 0.2 mg (2 x 0.1 mg) PO QAM #180 tabs 07/23/24 ropinirole 1 mg tablet 1 mg PO TID #90 tabs 07/23/24 Allergies Allergies vibegron (From Gemtesa) Allergy (Severe, Verified 09/02/24 11:14) Rash Secretions Thick:: Yes Amount/Day:: 2 TBSP AM: Yes Sleep Disorder Evaluation Hx of Sleep Apnea: Yes Do you snore loudly (louder than talking or can be heard through closed doors)?:No Do you often feel tired/ fatigued/ sleepy during daytime?: No Has anyone observed you stop breathing during sleep?: No History of Hypertension (for STOP score): Yes STOP Results: Negative Medical Utilization Medical Devices Do you use a peak flow meter at home?: No Do you use a spacer device with your inhalers?: No Medical Utilization Number of hospital visits in the last year?: 0 Number of emergency room visits in the last year?: 2 Do you see your physician on a regular schedule?: Yes How often?: every 3 months Advanced Directives Advanced Directives Do you have a Healthcare Power of Engraver Wood?: Yes Living Will: Yes Advance Directives Information Provided: Yes Advance Directives on File: No DNR Order?:: No Past Medical History Covid-19 Screening Physicial Symptoms Other Clinical Concerns Exposure Risk Pertinent Comorbidities 65 years or older:: Yes Has a chronic lung disease or moderate to severe asthma:: Yes Has a serious heart condition:: Yes Medical History Medical History Transient hypotension Acute dyspnea Acute [...] vocal cords High cholesterol Hypothyroidism Surgical History Surgical History Status post tracheostomy 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 artery (~06/06/21) H/O cardiac catheterization (~06/06/21) Hx of arthroscopy of knee H/O knee surgery H/O thyroidectomy Significant Family History Family History Father COPD (chronic obstructive pulmonary disease) Emphysema lung Myocardial infarction Mother Parkinsons disease Malignant melanoma Social History Smoking History Smoking Status: Former smoker Years Smokin (stopped 5 years ago) Packs Smoked per Day: 1 Alcohol Use Alcohol Usage: No Substance Abuse Hx Substance Use: No Occupation Occupation (List type of work in comments):: Retired Functioning ADL/IADL Current Ability Current Ability: Independent: Self-Care (e.g.,grooming, dressing, & bathing), Independent: Ambulation, Independent: Transfer and Independent: Household tasks (e.g., light meal prep, laundry, shopping) Pt Functioning Prior to Problem Prior Functioning: Self-Care (e.g.,grooming, dressing, & bathing): Independent, Ambulation: Independent, Transfer: Independent and Household tasks (e.g., light meal prep, laundry, shopping): Independent Social Environment Status Marital Status: Current Living Arrangements Living Environment:: Spouse Children How many children do you have?: 1 Do any of your children live nearby?: Yes Safety Do you feel safe in your surroundings?: Yes Assistance Do you need any assistance at home?: no Review of Systems Review of Systems Review of Systems Respiratory: Reports Cough, SOB at Rest, SOB upon Exertion, Sputum production, Wheezing, Appetite, Normal and Sleep, Normal; Denies Dizziness/Lightheadedness, Fatigue, PVD or Sexual changes Pain Is Patient Pain Free?: Yes Risk Factor Assessment Chief Complaint Chief Complaint: COPD III Severe Vital Signs Pulse Rate: 80 Pulse Rhythm: Regular Pulse Ox: 91 Blood Pressure: 126/83 Diabetes Nutrition Referral for Diabetes: No Obesity Height: 5 ft 9 in Weight:: 203 lb Weight in Pounds: 203.0 lbs Body Mass Index (BMI): 29.9 Physical Activity Physical Inactivity: None Risk Stratification Risk Guidelines: Moderate Risk: Risk Factor for Smoking, Risk Factor for Diabetes, Risk Factor for Sedentary Lifestyle and Risk Factor for Depression andHighest Risk: Risk Factor for Dyslipidemia, Risk Factor for Diabetes, Risk Factor for Obesity and Risk Factor for Hypertension For Smoking Smoking Risk Guidelines For Dyslipidemia Dyslipidemia Risk Guidelines For Diabetes Mellitus Diabetes Risk Guidelines For Obesity/Overweight Obesity/Overweight Risk Guidelines For Hypertension Hypertension Risk Guidelines For Sedentary Lifestyle Sedentary Lifestyle Risk Guidelines For Depression Depression Risk Guidelines Motivation Motivation to Participate On a scale of 1 to 10, how prepared are you to commit to attending program?: 3 What do you see as barriers to successfully being able to complete the program?:nothing What do you see as the benefits of succesfully completing the program? In other words, what do you hope to get out of participating in the program?: improved energy Are there issues you are dealing with that will interfere with completing the program?: no Do you have a spouse or signficant other, family or friends who will help support you to complete the program?: yes Diagnostic Data Review 6 Minute Walk Test 6 Minute Walk Test: 755 feet Pulmonary Function Test FEV1:: 32 FVC:: 79 FEV1/FVC%:: 40 Gold Classification: GOLD class III(severe COPD)with FEV1/FVC<70, 30% 09/07/24 1534 er BS, RVT> Date _ Jono Grgeorio BS, RVT Outcome assessment reviewed. Exercise plan approved as documented. Treatment plan and goals support patient needs/abilities. Continue with current plan. I certify the patient demonstrates improvement and remains willing and capable of participation. the patient continues to benefit from pulmonary services/training. The patient may continue at currentintensity, endurance andmodality and progress per protocol. 09/07/24 1851 Cosigner Signature: Date Pj Almanza MD CC: ~ Signed [facility]06-18-2025 Radiology Diagnostic study note [facility] Imaging Services [address] [place], [place] [id number] Chest without Contrast MR#: [id number] Acct: [id number] Name: FREDDIE COLE Rep #: [id number] : 1960 M 64 From: Jayleen Smart MD PCP: Dr. Biju Lobo, DO Status: REG CLI Study:Chest without Contrast Date of Exam: 08/04/24 Exam# [id number] Ordering Dr: Tita Wick BROADCAST TECHNICIAN-C PROCEDURE: CHEST WITHOUT CONTRAST 08/04/2024 REASON FOR [...] probably reflux. Mild diffuse spondylosis. Reading Location: [place] [address] CC: Dr. Biju Lobo, DO; Tita Wick NP ~ Doll Wig Maker Rooted Hair: Signed [facility]05-28-2025 Progress note Author BROADCAST TECHNICIAN Tita Wick [facility] Services Note Date/Time July 15, 2024 2:38p m [facility] Pulmonary Medicine of [address] [place] [address] OFFICE VISIT Date of Service: 07/15/24 MR#: [id number] Acct: [id number] Name: FREDDIE COLE Rep #: [id number] : 1960 Provider: Tita jaramillo NP Age/Sex: 64/M Location: [facility].PMW Status: Signed Assessment and Plan Assessment and [...] including budesonide, Perforomist, Yupelri, this is a full regiment to treat [...] month. This patient was last hospitalized at [facility] from August 12 through August 15, [...] 7am and 5pm, Yupelri 10:30am. With the [employer] program he has been able to obtain [...] Reasons: 6-8 wk f u Chief Complaint: Hide Tanner Required: No Accompanied by: Is patient in pain?: No Allergies vibegron (From Nutrino) Allergy (Severe, Verified 07/15/24 13:50) Rash Medications [...] you fallen in the past year?: Yes [facility] Medical History Transient hypotension Acute dyspnea Acute [...] you fallen in the past year?: Yes 07/15/242214 <Electronically signed by Tita IRBY> Date _ Tita IRBY Cosignjesse Signature: Date (if applicable) CC: ~ [facility] Work Phone: 1(122) 746-707805-28-2025 Progress [facility] Pulmonary Medicine of [address] [place] [address] OFFICE VISIT Date of Service: 07/15/24 MR#: [id number] Acct: [id number] Name: FREDDIE COLE Rep #: [id number] : 1960 Provider: Tita jaramillo NP Age/Sex: 64/M Location: [facility].PMW Status: Signed Assessment and Plan Assessment and [...] month. This patient was last hospitalized at [facility] from August 12 through August 15, [...] 7am and 5pm, Yupelri 10:30am. With the [employer] program he has been able to obtain [...] Reasons: 6-8 wk f u Chief Complaint: Hide Tanner Required: No Accompanied by: Is patient in pain?: No Allergies vibegron (From Nutrino) Allergy (Severe, Verified 07/15/24 13:50) Rash Medications [...] QDAY #90 04/15/24 07/15/24 Rx for nebulization (Yuperafai) mL ipratropium 0.5 mg-albuterol 3 mg 3 [...] you fallen in the past year?: Yes [facility] Medical History Transient hypotension Acute dyspnea Acute [...] you fallen in the past year?: Yes 07/15/245 damien BROADCAST TECHNICIAN-C> Date _ Tita Wick BROADCAST TECHNICIAN-C Otoniel Signature: Date (if applicable) CC: ~ [facility]05-23-2025 Procedure note [facility] Speech Pathology [address] [place] [address] Modified Barium Swallow Study MR#: [id number] Acct: [id number] Name: FREDDIE COLE Rep #:[id number] : 1960 64 From: Lucy tucker M.A. [facility]CAMP ADVISOR Modified Barium Swallow Patient Information Study Date: [...] Status Active ST Patient: Active Contact Information [facility] Speech Therapy:: Lucy Kumar M.A. CAMP ADVISOR Speech-Language Pathologist [facility] [address] [facility] [place] [address] [email or web address] [phone] 07/10/24 1401 buck Freedman CCC-CAMP ADVISOR> Date/Time Lucy Kumar M.A., CCC-CAMP ADVISOR Co-Signature Required for all Medicare patients Date/Time Co-Signature CC: ~ [facility]05-16-2025 Procedure notey [facility] Pulmonary Services/Neurology [address] [place] [address] MR#: [id number] Acct: [id number] Name: FREDDIE COLE Rep #:[id number] : 1960 64 From: Richard Munoz DO Referring Dr: Tita Wick BROADCAST TECHNICIAN-C Status: REG CLI Location: [facility] Date: Sex: M C PSN 6 Minute Walk Test 6 Minute Walk Test 6 Minute Walk Test: 6 Minute Walk Test PSN:6-Minute Walk Test Start: 07/02/24 12:50 Freq: Status: Active Protocol: RESP.6MINW Document 07/02/24 12:51 SFENTON (Rec: 07/02/24 12:54 SFENTON [id number]) 6 Minute Walk Test Date Performed 07/02/24 [...] Munoz DO CC: ~ Date Dictated: 07/03/24 111 Date Transcribed: 07/03/241111 Doll Wig Maker Rooted Hair: Dr. Richard Munoz DO Signed [facility]05-07-2025 History of Present illness Narrative* Hemant Galvan MD - 06/24/2024 11:20 AM EDT [...] Midline trachea without mass or lesion. 6 Domoniqueley trach changed today along with Pretty Gracia CNP [...] TUBE TRACH CUFFLESS 7.5MM SHILEY FLEX [id number] [facility] * Diagnosis Onset Date [...] 1:31am Dysphagia inactive July 23, 2024 11:31am [facility] Work Phone: 1(917) 621-770404-08-2025 Evaluation note* Diagnosis Onset Date Resolution Status [...] 1:31am Dysphagia inactive July 23, 2024 11:31am Asthma-COPD overlap syndrome chronic September 02, 2024 11:11am [facility] Work Phone: [phone] Evaluation note* Diagnosis Onset Date Resolution Status Admit Date Asthma-COPD overlap syndrome chronic April 15, 2024 11:10am MARYJO (obstructive sleep apnea) chronic April 15 11:10am Dysphagia acute May 26 1:00pm Parkinson's [...] occlusion inactive July 23, 2024 1 1:31am [facility] Work Phone: 1(697) 766-917802-12-2025 Evaluation note* Diagnosis Onset Date Resolution Status Admit Date CAD (coronary artery disease) chroni c April 01, 2024 1:48pm Carotid artery disease chronic Fe bru2024 1:48pm COPD (chronic obstructive pulmonary disease) chronic [...] overlap syndrome chronic May 27, 2024 1:45pm MARYOJ (obstructive sleep apnea) chroni c May 27, 2024 1:45pm Asthma-COPD overlap syndrome chronic July 15, 2024 1:42pm MARYJO (obstructive sleep apnea) chroni c July 15, 2024 1:42pm [facility] Work Phone: 1(105) 658-151302-05-2025 History of Present illness Narrative* Hemant Galvan MD - 03/25/2024 11:20 AM EST [...] TUBE TRACH CUFFLESS 7.5MM SHILEY FLEX 6UN75H [id number] documented in this [facility]01-27-2025 Evaluation note * Diagnosis Onset Date Resolution Status Admit Date Parkinson's disease chronic 2024 11:36am 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 Carotid artery, internal, occlusion inactive March 16 11:36am CAD (coronary artery disease) chroni c April 01, 2024 1:48pm Carotid artery disease chronic Fe bru2024 1:48pm COPD (chronic obstructive pulmonary disease) chronic March 1:48pm Hyperlipidemia chronic March 212024 1:48pm MARYJO (obstructive sleep apnea) chroni c April 01, 2024 1:48pm 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, chronic April 01, 2024 1:48pm Hypertension resolved March 1:48pm Asthma-COPD overlap syndrome chronic April 15, 2024 11:10am MARYJO (obstructive sleep apnea) chroni c April 15, 2024 11:10am [facility] Work Phone: 1(963) 102-571301-27-2025 Evaluation note* Diagnosis Onset Date Resolution Status Admit Date Parkinson's disease chronic 2024 11:36am Shy-Drager syndrome chronic th, 2025 11:36am Carotid artery, internal, occlusion inactive March [...] apnea) chroni c May 27, 2024 1:45pm [facility] Work Phone: 1(995) 582-672111-08-2024 History of Present illness Narrative* Hemant Galvan MD - 12/27/2023 11:00 AM EST [...] change at next visit. documented in this [facility]-14-2024 NoteAcceptable Specimen? Acceptable Specimen(Evaluation not needed) Gram Stain 2+ White Blood Cells 2+ Gram positive cocci in chains and clusters Rare Gram positive rods Rare Yeast Like OrganismsWMercy Health St. Joseph Warren HospitalComment on above:Performed By: #### M100.2400, M100.1999 ####[facility] [id number] [place], [phone] [facility]09-04-2024 [facility]09-03-2024 [facility]08-29-2024 History of Present illness Narrative* Rj Trammell MD - 10/17/2023 9:30 AM EDT [...] Discussed patient doing CIC documented in this [facility] Work Phone: 1(614) 902-144708-14-2024 History of Present illness Narrative* Hemant Galvan MD - 10/02/2023 9:20 AM EDT [...] at next visit. [facility]07-20-2024 Nurse Note* Nursing Notes - Reyna Baltazar RN - 09/07/2023 11:16 AM EDT VSS, Aox4, patient denies pain, tolerating diet per baseline. Tracheostomy in place, no signs/symptoms of distress, respiratory treatment delivered per RT prior to discharge. Discharge instructions reviewed at bedside with patient and family, faxed ahead to [facility]. Attempted to call report to receiving facility with no answer, left message on secure voicemail with callback number. All questions/concerns addressed with patient and family, IV removed with no complications. Patient discharged via EMS with all medical supplies, personal belongings taken by family. Reyna Baltazar RN [facility]07-20-2024 Miscellaneous Notes* Nursing Notes - Reyna Baltazar RN - 09/07/2023 11:16 AM EDT VSS, Aox4, patient denies pain, tolerating diet per baseline. Tracheostomy in place, no signs/symptoms of distress, respiratory treatment delivered per RT prior to discharge. Discharge instructions reviewed at bedside with patient and family, faxed ahead to [facility]. Attempted to call report to receiving [...] 09/02/2023 6:47 PM EDT On admission to [facility], from PACU a dual RN [...] vocal fold paralysis PROCEDURE: 1. Tracheostomy SURGEON: Hemant Galvan MD DOOR TENDER: Efe Mcnulty MD ANESTHESIA: General ESTIMATED BLOOD [...] mechanical ventilatory circuit. Proper tidal volumes and [id number] were confirmed. The tracheostomy was then secured to the anterior neck skin with silk sutures. A trach tie was also placed. This concluded our procedure. The patient tolerated the procedure well without any apparent immediate post operative complications. The patient was rotated back to their original position, gently awakened from general anesthesia and taken to PACU in stable condition. Hemant Galvan MD was present and participated through the entirety of the procedure. * Brief Op Note - Efe Mcnulty MD - 09/02/2023 3:52 PM EDT Freddie Cole ([id number]) PRE OPERATIVE DIAGNOSIS Bilateral vocal fold paralysis [J38.02] POST OPERATIVE DIAGNOSIS Bilateral vocal fold paralysis [J38.02] PROCEDURE PERFORMED Procedure(s) (LRB): TRACHEOSTOMY (Midline) PRIMARY CLOSURE N/A INTRAOPERATIVE FINDINGS Prior scar tissue, 6 cuffed Shiley placed SURGEON Surgeons and Role: * Hemant Galvan MD - Primary ANESTHESIOLOGIST Anesthesiologist: Ning Wing MD SYSTEMS PROGRAM MANAGER: Lev Chavez APRN-SYSTEMS PROGRAM MANAGER SURGICAL STAFF Wetland Scientist: Ondina Garza RN; Biju Govea RN Resident Assisting: Efe Mcnulty MD Promos Executive Producer: Elidia Phillips COMPLICATIONS None ESTIMATED BLOOD LOSS Minimal SPECIMENS No specimen sent * No specimens in log * Efe Mcnulty MD September 02, 2023 3:52 PM * Plan of Care - Efe Mcnulty MD - 09/02/2023 2:48 PM EDT ENT Plan of Care Diagnosis: Bilateral true vocal fold paralysis (idiopathic, 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 Rosa Elena flap. Trach change POD4 to 6UN75R Domoniqueley. Diet/CAMP ADVISOR: ADAT, CAMP ADVISOR only if concerns Antibiotics: periop Activity: routine [...] scheduled Efe Mcnulty MD [facility] History of Present illness Narrative* Hemant Galvan MD - 09/07/2023 8:00 AM EDT [...] discharge today and follow-up in 4 weeks. Hemant Galvan M.D. Residency Glass Melt Operator Department of Otolaryngology-Head and Neck Surgery * [...] Shiley cuffless trach in place and patent, [place] valve in place Non-labored breathing, in no [...] WBC/Hgb/Hct/Plts: 6.88/13.9/43.1/130 (09/06 002) Na/K+/Phos/Mg/Ca: 140/3.7/--/--/-- (09/06 002) Bun/Creat/Cl/CO2/Glucose: 16/1.07/101/29/110 (09/06 0023) XR CHEST 1 VIEW PORTABLE Final Result IMPRESSION: New bibasilar atelectasis status post placement of properly positioned tracheostomy tube. 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 Diet/CAMP ADVISOR: ADAT, CAMP ADVISOR only if concerns Antibiotics: periop Activity: routine [...] : 09/07/2023 Final Discharge Planning Discharge Disposition: Residential Facility Services at Discharge: Occupational Therapy, Physical Therapy, Residential Selected Continued Care - Admitted Since 09/02/2023 Destination Coordination complete. Service Provider Selected Services Address Phone Fax Patient Preferred [facility] SN[facility] Residential [address] [place] [address] [phone] -- -- Community Agency Name(s) For Handoff: [facility] Phone For Handoff: Fax For Handoff: Plan Plan: Patient will discahrge to [facility] at discharge Patient/Family In Agreement With Plan: yes Transportation Transport Request Mode of Transfer: BLS Name of Discharge Transport Company: [facility] [facility] ETA: 09/07/23, 10:30a Belkys GARCIA,RN [facility] Weekend Clinical Knitting Teacher Available on secure chat. * Paula Abraham - 09/06/2023 10:28 AM EDT 09/06/23 1028 Transport Request Mode of Transfer BLS Name of Discharge Transport Company [facility] ETA 09/07/23, 10:30a This pt will be picked up from [facility] [id number] [facility] Intramural Director [phone] * RETA Gasca - 09/06/2023 8:30 AM EDT Acute Care Speech-Language Pathology Voice Prosthesis Evaluation (Speaking Valve) Speaking Valve Recommendations: Speaking valve when awake/alert, as tolerated. Remove speaking valve when sleeping Discharge Recommendations: Based on the below outcome measures/assessment score(s) and CAMP ADVISOR clinicaljudgment, Discharge Destination Recommendation: Deferred to PT/OT recomendations related to mobility (Outpatient CAMP ADVISOR as needed for any questions re: speaking valve use or use of intelligibility strategies) Acute CAMP ADVISOR Outcomes Tracking Communicate basic wants and needs?: [...] (completed prior to admission.) MD Linda Sneed, CAMP ADVISOR Anesthesia: Topical lidocaine and Afrin Complications: None [...] Date TRACHEOSTOMY Midline 09/02/2023 Laterality: Midline; Surgeon: Hemant Galvan MD; Location: [facility] MAIN OR KNEE ARTHROSCOPY Right OTHER SURGICAL [...] to Visit: Nursing Lines/Tubes/Drains (Rehab Status): Telemetry CAMP ADVISOR Existing Precautions/Restrictions: supplemental oxygen Respiratory Status: Type: [...] with no evidence of air trapping; therefore, CAMP ADVISOR proceeded with placement of speaking valve. Patient [...] provided regarding Passy Toño Speaking Valve. The Passy-Toño Speaking Valve is a closed position one-way valve. It opens during inhalation and the valve closes during exhalation to redirectairflow out through the vocal folds, mouth, and nose. CAMP ADVISOR discussed airflow changes with speaking valve vs open trach. CAMP ADVISOR explained benefits of speaking valve use to include potential improvements in swallow function, expedited trach weaning, improved oxygenation, improved olfaction, improved airway clearance and secretion management, and reduced risk of infection vs digital occlusion. Educationproviding regarding safety precautions/contraindications, wearing schedule, and cleaning instruction s. Education provided regarding safety with donning and doffing of the speaking valve. CAMP ADVISOR emphasized importance of trach stabilization during placement [...] session: Review intelligibility strategies if needed Acute CAMP ADVISOR Goals Plan of Care by RETA Gasca at 09/06/2023 8:30 AM Version 1 of 1 Problem: Speaking Valve Goal: Communication 1 - Patient will use respiration/phonation coordination strategies with no cuesto increase vocal intensity across 15 minutes while donning speaking valve and maintaining physiologic stability to improve functional communication Outcome: Ongoing Time In: 829 Time Out: 0900 Total Visit Time: 30 minutes Total Treatment Time (skilled, billable minutes): 25 minutes CAMP ADVISOR Evaluation and Treatment Time Evaluation for Use/Fit of Voice Prosthetic Device 37254: 25 Speech Language Pathologist: RETA Gasca Time In: 829 Time Out: 0900 Total Visit Time: 30 minutes Total Treatment Time (skilled, billable minutes): 25 minutes PPE used during patient interaction: facemask, gloves Patient location/status at end of session: chair Patient alarms at end of session: none altered Needs in reach. CAMP ADVISOR Evaluation and Treatment Time Evaluation for Use/Fit of Voice Prosthetic Device 14169: 25 Upon discontinuation of Acute Care Speech Therapy Services or patient discharge from the hospital this note represents the current Speech Therapy Discharge Summary * Hemant Galvan MD - 09/06/2023 7:06 AM EDT [...] for family today Plan for discharge tomorrow. Hemant Galvan M.D. Residency Glass Melt Operator Department of Otolaryngology-Head and Neck Surgery * [...] Surgeon(s): Carole 4 Days Post-Op Airway: 6UN75R Shiley trach, Rosa Elena flap. Diet/CAMP ADVISOR: ADAT, CAMP ADVISOR only if concerns Antibiotics: periop Activity: routine Consults: prn Labs/Replacement: routine, can discontinue if stable Anticoagulation: Restart home meds including Plavix POD1 PMHx:CAD, asthma, COPD, HTN, HLD, HF, hypothyroidism, MARYJO, Parkinson's disease Daily Plan: - Ciprodex drops down trach tube - Regular diet - Case management for trach supplies, suction, humidification - CAMP ADVISOR for PMV - Reach out to sleep [...] notified that there were still no accepting [facility] agencies. Reviewed messagessent by covering CM to SNFs near pts home as alternative placement. A request for clinical documentation and notes was received from the facilities messaged. Clinical information,notes and vitals sent to SNF facilities. -Daughter's FOC [facility] SNF-[facility] asked for time to review and they would notfiyus if they can accept 09/05 [facility]) [facility] (see below) [facility] 5 Viewed [facility] 4 Viewed [facility] SNF- Pending Approval [facility] 7 Under Review Send again [facility] 5 Under Review Send again [facility] 3 Under Review Send again Will reconvene with family Saturday morning for SNFchoice/dispo planning. Anticipated discharge disposition: Home with Home Health vs SNF Anticipated Services at Discharge: Outpatient follow up, Residential, Outpatient wound/drain/ostomy care, Wound/drain/line/ostomy-supplies Barriers to Discharge: Facility/Agency Issue, Home Care Explanation of Barriers: Patient medically ready for discharge placement Belkys GARCIA RN CM Clinical Knitting Teacher Available on secure chat. Please note that I am a float ed case manager and may not cover the same service every day. Please call the Main Knitting TeacherBalance Bridge Assembler at [phone] for up to date coverage. * Hemant Galvan MD - 09/05/2023 8:37 AM EDT [...] trach. Plan for discharge in two days. Hemant Galvan M.D. Residency Glass Melt Operator Department of Otolaryngology-Head and Neck Surgery * [...] [P.O.:986] Out: 1350 [Urine:1350] WBC/Hgb/Hct/Plts: 8.06/13.5/40.7/130 (09/04 002) Na/K+/Phos/Mg/Ca: 139/3.6/--/--/-- (09/04 26) Bun/Creat/Cl/CO2/Glucose: 20/0.98/105/26/95 (09/04 0027) XR CHEST 1 VIEW PORTABLE Final Result IMPRESSION: New bibasilar atelectasis status post placement of properly positioned tracheostomy tube. 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 Rosa Elena flap. Trach change POD4 to 6UN75R [place]. Diet/CAMP ADVISOR: ADAT, CAMP ADVISOR only if concerns Antibiotics: periop Activity: routine [...] with pt, and daughter Bessy Britt P [phone] @ bedside and reviewed dc plans. Informed no accepting [facility] agencies @ present. This CM extended deadline and added [facility] Home health services per family request. Timeline deadline tomorrow @ 10am. Family and pt state concerned about discharge to home on Saturday. State want pt to go to [facility] TCU / SNF. Agreeable to SNF referrals. Reason for Consult: SNF Consulted By: pt and family Level(s) of Care Discussed: SNF Patient and/or Yacht Rigger's Preferred Geographic Area for Discharge: 15 miles from home address Patient and/or Yacht Rigger's Preference for Providers to Include? 1.[facility] TCU/SNF Patient and/or Yacht Rigger's Preference for Providers to Exclude? 1.na Patient and/or Yacht Rigger's Discussion: Discussed referral process with the patient and/or technical account representative. Patient and/or technical account representative isagreeable to have placement referral initiated. Paula Alexandre RN, BSN Clinical Knitting Teacher [phone] *Please note that I am a float ed case manager and that I may not cover the same service everyday. Please call the main case management office at for up to date coverage. * Hemant Galvan MD - 09/04/2023 7:38 AM EDT [...] POD 4 to 6 cuffless Shiley trach. Hemant Galvan M.D. Residency Glass Melt Operator Department of Otolaryngology-Head and Neck Surgery * [...] flap. Trach change POD4 to 6UN75R [place]. Diet/CAMP ADVISOR: ADAT, CAMP ADVISOR only if concerns Antibiotics: periop Activity: routine [...] 10/01 scheduled David Munoz MD * EDGAR Dunlap-S - 09/03/2023 3:32 PM EDT Discharge Planning Patient Assessment Admission Assessment Patient Assessment Completed: Initial Anticipated discharge disposition: Home with Home Health Reason for Admission: vocal paralysis, stridor Is the patient able to participate in the assessment?: No Explanation of why patient is unable to participate: he is unable to speak Information source: Spouse, Child(tate) Information Source Name/Contact: Machelle Cole [phone] Demographics Verified and Updated: Yes Has the [...] as PCP - Referring 1 (Cardiovascular Disease) Rajinder Grijalva MD as Referring Provider (Otolaryngology) Environment/Caregivers [...] oxygen?: Yes Oxygen Provider and Contact : Jessica [phone] Order for oxygen use?: prn Portable tank?: [...] patient have prescription insurance coverage? : Yes [facility] [address] [place] [phone] - [address] [facility] [phone] Hadoop Software Engineer Does the patient or technical account representative express financial concerns? : No Employed?: Yes Coping/Stress Concerns about patient s coping and stress?: No Concerns about patient s caregiver s coping and stress?: No Values and Beliefs Cultural or confucianism practices that may impact discharge planning and/or medical care?: No Initial Discharge Planning Anticipated discharge disposition: Home with Home Health Transportation Available for Discharge: Family or Friend, Private Vehicle Anticipated DME: oxygen (trach supplies) Anticipated Services at Discharge: Residential Patient Assessment Completed: Initial Expected Discharge Date: Saturday Discharge Planning Summary Patient will discharge home with new trach supplies, suctioning, humidifier. Additionally he will need a walk of life for O2. He gets his O2 through [facility] ([phone]) but family is adamant to [facility] the [facility]ach [facility].Patient also wants a home heatlh nurse to reinforce trach teaching. Referrals sent and order pended. [facility]ys request [facility] [...] needs IADL History IADLs: independent Primary Language: Portuguese Objective/Observation: Vitals/Vitals Responses to Treatment: VSS O2 [...] noted Mobility Assessment: Supine to Sit Mobility [place] Level: Supine->Sit: independent Transfer Assessment: Sit to Stand Transfer [place] Level: Sit->Stand: independent Stand to Sit Transfer [place] Level: Stand->Sit: independent Bed-Chair Transfer [place] Level: Bed<->Chair: independent Outcome Score(s): CURRENT [facility] Daily Activity Inpatient Short Form Putting on/Taking Off Lower Body Clothin - No Assistance Bathin - A Little Assistance Toiletin - No Assistance Putting on/Taking Off Upper Body Clothin - No Assistance Groomin - No Assistance Eatin - No Assistance CURRENT [facility] Activity Raw Score: 23 CURRENT [facility] Activity Functional Limitation/Modifier: 15.86% Currently Impaired [...] Limits Mobility Assessment: Supine to Sit Mobility [place] Level: Supine->Sit: independent Balance: Sitting Balance Static Sitting-Level of Assistance: Independent Dynamic Sitting-Level of Assistance: Independent Standing Balance Static Standing-Level of Assistance: Independent Dynamic Standing-Level of Assistance: Independent Transfer Assessment: Sit to Stand Transfer [place] Level: Sit->Stand: independent Gait/Functional Mobility: Gait Assessment [place] Level: Gait: independent Ambulation Distance (Feet): 5 Stairs: Outcome Score(s): CURRENT [facility] Basic Mobility Inpatient Short Form Turning over in bed: 4 - No Assistance Moving from lying on back to sittin - No Assistance Moving to and from bed to chair: 4 - No Assistance Sitting/standing from chair: 4 - No Assistance Walk in hospital room: 4 - No Assistance Climbing 3-5 steps with a railin - No Assistance CURRENT [facility] Mobility Raw Score: 24 CURRENT [facility] Mobility Functional Limitation: 0.00% Impaired in Basic [...] (Low) Time Entry: 17 Evaluating Therapist: Gerard Laboy PT Additional Details: PT Co-Eval/Treatment Information Co-evaluation/co-treatment [...] Making: Low Time In: 728 Time Out: 745 Total Visit Time: 17 minutes Total Treatment [...] [I.V.:1400] Out: 100 [Urine:100] WBC/Hgb/Hct/Plts: 10.04/14.9/46.8/137 (09/02 426) Na/K+/Phos/Mg/Ca: 140/4.7/--/--/-- (07/16 0427) Bun/Creat/Cl/CO2/Glucose: 18/0.89/104/28/134 (09/02 0427) XR CHEST 1 VIEW PORTABLE Final Result IMPRESSION: New bibasilar atelectasis status post placement of properly positioned tracheostomy tube. 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 Rosa Elena flap. Trach change POD4 to 6UN75R Domoniqueley. Diet/CAMP ADVISOR: ADAT, CAMP ADVISOR only if concerns Antibiotics: periop Activity: routine [...] Carole 10/01 scheduled David Munoz MD * Hemant Galvan MD - 09/03/2023 6:37 AM EDT [...] POD 4 to 6 cuffless Shiley trach. Hemant Galvan M.D. Residency Glass Melt Operator Department of Otolaryngology-Head and Neck Surgery documented in this [facility] Plan of care note* Plan of Care - RETA Gasca - 09/06/2023 8:30 AM EDT Problem: Speaking Valve Goal: Communication 1 - Patient will use respiration/phonation coordination strategies with no cuesto increase vocal intensity across 15 minutes while donning speaking valve and maintaining physiologic stability to improve functional communication Outcome: Ongoing [facility]07-19-2024 Plan of care note* Plan of Care [...] completion at recommended discharge destination. Outcome: Progressing [facility]07-18-2024 Nurse Note* Nursing Notes - EMILY [...] minutes were spent with patient and/or nurse. [facility] Work Phone: 1(222) 456-893407-18-2024 Plan of care note* Plan of Care - Gabrielle Conte RN - 09/05/2023 3:30 AM EDT Problem: Adult Inpatient Plan of Care Goal: Plan of Care Review Outcome: Progressing Goal: Patient-Specific Goal (Individualized) Outcome: Progressing Goal: Absence of Hospital-Acquired Illness or Injury Outcome: Progressing Goal: Optimal Comfort and Wellbeing Outcome: Progressing Goal: Readiness for Transition of Care Outcome: Progressing [facility]07-17-2024 Nurse Note* Nursing Notes - Aislinn [...] is mobile at home and requires portability. [facility]07-17-2024 Nurse Note* Nursing Notes - David Caruso RN - 09/04/2023 11:59 AM EDT Family teaching at bedside. completed trach inner cannula exchange, suction, and trach tie exchange. [facility]07-16-2024 Plan of care note* Plan of [...] completion at recommended discharge destination. Outcome: Ongoing [facility]07-15-2024 Nurse Note* Nursing Notes - Reyna Ta RN - 09/02/2023 6:47 PM EDT On admission to [facility], from PACU a dual RN initial assessment of skin condition was performed by Reyna Ta RN and Nereyda Alvarez. Skin Assessment: Skin within defined limits:Yes Mg Score: 16 LDA Added:No Reyna Ta RN [facility]07-15-2024 Surgery Postoperative evaluation and management note* Op Note - Efe Mcnulty MD - 09/02/2023 3:52 PM EDT Operative Report DATE OF SERVICE: 09/02/2023 PATIENT: Freddie Cole PREOPERATIVE DIAGNOSIS: 1. Bilateral true vocal fold paralysis POSTOPERATIVE DIAGNOSIS: 1. Bilateral true vocal fold paralysis PROCEDURE: 1. Tracheostomy SURGEON: Hemant Galvan MD DOOR TENDER: Efe Mcnulty MD ANESTHESIA: General ESTIMATED BLOOD [...] mechanical ventilatory circuit. Proper tidal volumes and XC4vuagee were confirmed. The tracheostomy was then secured to the anterior neck skin with silk sutures. A trach tie was also placed. This concluded our procedure. The patient tolerated the procedure well without any apparent immediate post operative complications. The patient was rotated back to their original position, gently awakened from general anesthesia and taken to PACU in stable condition. Hematn Galvan MD was present and participated through the entirety of the procedure. [facility] Work Phone: 1(404) 650-600007-15-2024 Surgery Postoperative evaluation and management note* Brief Op Note - Efe Mcnulty MD - 09/02/2023 3:52 PM EDT Freddie Cole ([id number]) PRE OPERATIVE DIAGNOSIS Bilateral vocal fold paralysis [J38.02] POST OPERATIVE DIAGNOSIS Bilateral vocal fold paralysis [J38.02] PROCEDURE PERFORMED Procedure(s) (LRB): TRACHEOSTOMY (Midline) PRIMARY CLOSURE N/A INTRAOPERATIVE FINDINGS Prior scar tissue, 6 cuffed Shiley placed SURGEON Surgeons and Role: * Hemant Galvan MD - Primary ANESTHESIOLOGIST Anesthesiologist: Ning Wing MD SYSTEMS PROGRAM MANAGER: Lev Chavez APRN-SYSTEMS PROGRAM MANAGER SURGICAL STAFF Wetland Scientist: Ondina Garza RN; Biju Govea RN Resident Assisting: Efe Mcnulty MD Promos Executive Producer: Elidia Phillips COMPLICATIONS None ESTIMATED BLOOD LOSS Minimal SPECIMENS No specimen sent * No specimens in log * Efe Mcnulty MD September 02, 2023 3:52 PM [facility]07-15-2024 Plan of care note* Plan of Care - Efe Mcnulty MD - 09/02/2023 2:48 PM EDT ENT Plan of Care Diagnosis: Bilateral true vocal fold paralysis (idiopathic, 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 Rosa Elena flap. Trach change POD4 to 6UN75R Angeles. Diet/CAMP ADVISOR: ADAT, CAMP ADVISOR only if concerns Antibiotics: periop Activity: routine [...] Appointments/Followup: Carole 10/01 scheduled Efe Mcnulty MD [facility]07-15-2024 Attending History and physical note* Hemant Galvan MD - 09/02/2023 1:20 PM EDT PERIOPERATIVE SURGICAL HISTORY AND PHYSICAL UPDATE Pre-op Diagnoses: Bilateral vocal fold paralysis [J38.02] Procedure(s): TRACHEOSTOMY Surgeon(s): Surgeons and Role: * Hemant Galvan MD - Primary History and Physical [...] history and physical update was completed by Hemant Galvan MD, 09/02/2023, 1:20 PM. I have examined the patient and reviewed the previous H&P completed on date 08/28/23 and there are no changes. Hemant Galvan MD, 09/02/2023, 1:20 PM. Source Note - Hemant Galvan MD - 08/28/2023 12:38 PM EDT [...] fiberoptic laryngoscopy with stroboscopy MD Linda Sneed, CAMP ADVISOR Anesthesia: Topical lidocaine and Afrin Complications: None [...] and he will consider these surgical options. [facility]07-15-2024 History and physical note* Hemant Galvan MD - 09/02/2023 1:20 PM EDT PERIOPERATIVE SURGICAL HISTORY AND PHYSICAL UPDATE Pre-op Diagnoses: Bilateral vocal fold paralysis [J38.02] Procedure(s): TRACHEOSTOMY Surgeon(s): Surgeons and Role: * Hemant Galvan MD - Primary History and Physical [...] history and physical update was completed by Hemant Galvan MD, 09/02/2023, 1:20 PM. I have examined the patient and reviewed the previous H&P completed on date 08/28/23 and there are no changes. Hemant Galvan MD, 09/02/2023, 1:20 PM. Source Note - Hemant Galvan MD - 08/28/2023 12:38 PM EDT [...] Same Procedure: Flexible fiberoptic laryngoscopy with stroboscopy Hemant Carole, MD Linda Soummers, CAMP ADVISOR Anesthesia: Topical lidocaine and Afrin Complications: None [...] he will consider these surgical options. * Hemant Galvan MD - 08/28/2023 12:38 PM EDT [...] fiberoptic laryngoscopy with stroboscopy MD Linda Sneed, CAMP ADVISOR Anesthesia: Topical lidocaine and Afrin Complications: None [...] consider these surgical options. documented in this [facility]07-10-2024 History and physical note* Hemant Galvan MD - 08/28/2023 12:38 PM EDT [...] fiberoptic laryngoscopy with stroboscopy MD Linda Sneed, CAMP ADVISOR Anesthesia: Topical lidocaine and Afrin Complications: None [...] and he will consider these surgical options. [facility]05-22-2024 History of Present illness Narrative* Hemant Galvan MD - 07/10/2023 2:20 PM EDT [...] fiberoptic laryngoscopy with stroboscopy MD Linda Sneed, CAMP ADVISOR Anesthesia: Topical lidocaine and Afrin Complications: None [...] consider these surgical options. documented in this [facility]04-10-2024 History of Present illness Narrative* Rj Trammell MD - 05/29/2023 1:30 PM EDT [...] 1 year with PSA documented in this [facility] Work Phone: 1(721) 666-132601-30-2024 Progress note Author Harrison Spears [facility] March 19, 2023 10:23am Note Date/Time March 19, 2023 8 :16am [facility] Medical Records Department [address] [place] [address] Progress Note - Hospitalist 03/19/23 0814 MR#: [id number] Acct: [id number] Name: FREDDIE COLE Rep #:[id number] : 1960 62 From: Harrison Spears DO PCP: Dr. Biju Lobo DO Status:ADM IN [facility] Reason for Visit Reason for Visit: Diagnoses [...] 161/88 H 92 Room Air 2 03/19/23 05:03/19/23 07:17 03/19/23 07:03/19/23 05:03/19/23 07:03/19/23 07:17 03/18/23 14:05 Oxygen Flow Rate (L/min) [...] % (Auto) 67.0, Lymph % (Auto) 22.9, Newton % (Auto) 7.6, Eos % (Auto) 2.0, [...] cortical renal cyst. * discussed with the tube blower Dr. Beauchamp. Consult requested. * Stool studies: [...] history of GERD. He was referred to [facility] tertiary care outpatient. EGD on 11/23/2020 shows [...] Cosigner Signature (if applicable): CC: ~ Signed [facility] Work Phone: 1(606) 876-156001-29-2024 Progress note Author Harrison Speras [facility] March 18, 2023 3:09pm Note Date/Time March 18, 2023 8 :51am [facility] Medical Records Department [address] [place] [address] Progress Note - Hospitalist 03/18/23 0844 MR#: [id number] Acct: [id number] Name: FREDDIE COLE Rep #:[id number] : 1960 62 From: Harrison Spears DO PCP: Dr. Biju Lobo, Status:ADM IN Location: [place] 685585-1 Reason for Visit Reason for Visit: Diagnoses [...] Neut % (Auto) 66.4, Lymph % (Auto) 22.1,Newton % (Auto) 9.2, Eos % (Auto) 1.9, [...] cortical renal cyst. * discussed with the tube blower Dr. Beauchamp. Consult requested. * Stool studies: [...] history of GERD. He was referred to [facility] tertiary care outpatient. EGD on 11/23/2020 shows [...] subcu daily. Charges/Coding Visit Charges Inpatient E&M: 96178 Subs Hosp L2 03/18/23 1509 <Electronically signed by Harrison Spears DO> Cosigner Signature (if applicable): CC: ~ Signed [facility] Work Phone: 1(746) 195-282201-29-2024 Procedure [facility] 03-18-2023 Procedure [facility]01-29-2024 Procedure note [facility]01-29-2024 Procedure [facility] 03-17-2023 Progress note Author Delfin Russell [facility] March 17, 2023 11:58am Note Date/Time March 17, 2023 1 1:58am [facility] Medical Records Department [address] [place] [address] Progress Note - Hospitalist 03/17/23 0811 MR#: [id number] Acct: [id number] Name: FREDDIE COLE Rep #:[id number] : 1960 62 From: Delfin Dyer PCP: Dr. Biju Lobo DO Status:ADM IN Location: [place] [address] Reason for Visit Reason for Visit: Diagnoses [...] (Auto) 70.6 H, Lymph % (Auto) 22.0, Newton % (Auto) 6.2, Eos % (Auto) 0.6, [...] Clarity Clear, Urine pH 6.0, Ur Specific [place] 1.015, Urine Protein 15 H, Urine Glucose [...] % (Auto) 69.9, Lymph % (Auto) 20.4, Newton % (Auto) 7.8, Eos % (Auto) 1.2, [...] Valarie Lemos MD at 11:52 EST , Physical Exam Narrative Seen and examined [...] and cortical renal cyst. Discussed with the tube blower Dr. Beauchamp. Consult requested. Possible differentials were [...] or advanced directive. His is power of family law attorney for health. After discussion of benefits/risks [...] Clarity Clear, Urine pH 6.0, Ur Specific [place] 1.015, Urine Protein 15 H, Urine Glucose [...] % (Auto) 69.9, Lymph % (Auto) 20.4, Newton % (Auto) 7.8, Eos % (Auto) 1.2, [...] lobe atelectasis. Charges/Coding Visit Charges Inpatient E&M: 90034 Subs Hosp L2 03/17/23 1158 <Electronically signed by Delfin Russell MD> Cosigner Signature (if applicable): CC: ~ Signed [facility] Work Phone: 1(852) 114-593901-28-2024 Discharge summary Author Moses Grady [facility] March 16, 2023 10:55pm Note Date/Time March 16, 2023 1 0:23am [facility] Medical Records Department [address] [place] [address] Emergency Department Summary 03/16/23 MR#: [id number] Acct: [id number] Name: FREDDIE COLE Rep #:[id number] : 1960 62 From: Moses Falcon PCP: Dr. Biju Lobo, DO Status:ADM IN Location: [place]3 KT547-1 HPI History of Present Illness Chief Complaint: [...] review I see that he was prescribed avwvoyujetya61 January 2023). He states he saw pulmonology about 4 days ago. He was treated for oral thrush. He states that since starting that medicine his dry mouth seems to be better. Patient notes no fever. He denies any history of colitis diverticulitis food intolerances. He gets most of his care through [facility] cardiology and urology is through at [facility]. Hedenies any other new medications. He denies any change in medication dosing.. states she is feeling fine. He does not wear home oxygen. He does not feel short of breath. No change in cough. [facility] Medical History (Updated 03/16/23 @ 13:23 by [...] (Auto) 70.6 H Lymph % (Auto) 22.0 Newton % (Auto) 6.2 Eos % (Auto) 0.6 [...] failure, Diarrhea Disposition Disposition: Acute Care Hospital [facility] What to do if you have Problems For any increased pain, shortness of breath, bleeding, nausea or vomiting, chestpain, or any unexpected problems, contact your Primary Care Provider. Call [facility] ([phone]) or report to the closest Emergency Room. Call 911 if necessary. 03/16/23 2994 <Electronically signed by Moses Grady DO> Cosigner Signature (if applicable): CC: Dr. Biju Lobo DO ~ Signed [facility] Work Phone: 1(384) 943-938301-27-2024 Consult note Author Ravinder Friend [facility] March 16, 2023 4:50pm Note Date/Time March 16, 2023 4 :36pm [facility] Medical Records Department [address] [place] [address] Consultation - GI 03/16/23 1633 MR#: [id number] Acct: [id number] Name: FREDDIE COLE Rep #:[id number] : 1960 62 From: Ravinder Friend DO PCP: Dr. Biju Lobo, DO Status:ADM IN Location: [facility] YB004-7 HPI Consult Data Date of Consult: 03/16/23 [...] distal small bowel. Colonicdiverticulosis without acute diverticulitis. [facility] Medical History Abnormal CT of the chest [...] Low Dose Aspirin) 81 mg PO DAILY [facility] 01/24/22 [History Last Taken Unknown] clopidogrel 75 [...] (Auto) 70.6 H, Lymph % (Auto) 22.0, Newton % (Auto) 6.2, Eos % (Auto) 0.6, [...] Clarity Clear, Urine pH 6.0, Ur Specific [place] 1.015, Urine Protein 15 H, Urine Glucose [...] IBD SGI. Charges/Coding Visit Charges Inpatient E&M: 81751 Init Hosp L3 03/16/23 1650 <Electronically signed by Ravinder Friend > Cosigner Signature (if applicable): CC: Dr. Biju Lobo DO~ Signed [facility] Work Phone: 1([phone]) 969-196701-27-2024 History and physical note Author Delfin Russell [facility] March 16, 2023 2:54pm Note Date/Time March 16, 2023 1 :49pm [facility] Medical Records Department [address] [facility] [place] [address] H&P Exam - Hospitalist 03/16/23 1347 MR#: [id number] Acct: [id number] Name: FREDDIE COLE Rep #:[id number] : 1960 62 From: Delfin Dyer PCP: Dr. Biju Lobo DO Status:ADM IN Location: [facility] NH998-4 HPI - General General Date of Admission: 03/16/23 Date of Service: 03/16/23 Chief Complaint: Nocturnal diarrhea for about 10 days. Abdominal cramps 10 days HPI Narrative FREDDIE COEL, is a 62 M With no significant [...] Labs and imaging discussed in assessment plan. [facility] Medical History Abnormal CT of the chest [...] (Auto) 70.6 H, Lymph % (Auto) 22.0, Newton % (Auto) 6.2, Eos % (Auto) 0.6, [...] 10:53 EST Reading Location ID and State: [facility] / [place] Tel , Service support , Abdomen/Pelvis CT [...] cause, exact etiology unclear[facility] fluid 1 L bolus [...] and cortical renal cyst. Discussed with the tube blower Dr. Beauchamp. Consult requested. Possible differentials were [...] history of GERD. He was referred to [facility] tertiary care outpatient. EGD on 11/23/2020 shows [...] or advanced directive. His is power of family law attorney for health. After discussion of benefits/risks procedures involved with full code, DNR CC arrest and DNR CC, the patient opted for full code. Patient does want artificial life support including intubation, tube feed, ventilator and/chest compression, central venous catheter, vasopressor and DC shock if needed Total time spent in uitu-ti-gure encounter in discussion of advanced directive 17 minutes. Laboratory Results 03/16/23 10:30: WBC 6.6, RBC 4.76, Hgb 14.6, Hct 43.9, MCV 92.2, MCH 30.7, MCHC 33.3, RDW Std Deviation 44.6 H, RDW Coeff of Nick 13.2, Plt Count 158, MPV 11.5, Immature Gran % (Auto) 0.300, Neut % (Auto) 70.6 H, Lymph % (Auto) 22.0, Newton % (Auto) 6.2, Eos % (Auto) 0.6, [...] lobe atelectasis. Charges/Coding Visit Charges Inpatient E&M: 04018 Init Hosp L3 Procedures Hospitalists Procedures: 63721 Advncd Care Plan 30 Min 03/16/23 8183 <Electronically signed by Delfin uRssell MD> Cosigner Signature (if applicable): CC: Dr. Biju Lobo DO; Dr. Delfin Russell MD~ Signed [facility] Work Phone: 1([phone]) 183-502808-08-2023 History of Present illness Narrative* 09/25/2022: Office [...] of 62 satting 96% on room air. IA-Ontfsxzbwt-Ffanlh [address] [place] Work Phone: 1(138) [phone] Procedure [facility] 08-24-2022 Procedure [facility]04-03-2023 Procedure note [facility]02-07-2023 History of Present illness Narrative* 03/27/2022: [...] room air. His weight is 223 pounds. BY-Xdbyrtnlzj-Imlkgr [address] [place] Work Phone: [phone] 247-746601-23-2023 History of Present illness NarrativePatient is here for yearly f/u. Most recent PSA was 0.42 on 03/12. . Prior PSA waS 0.37 on 01/08. Chronic BPH sx are mild and stable. Some urgency and frequency. Denies dysuria. Denies hematuria. Nocturia x3-4. He is taking Flomax. He has failed Gemtesa and Myrbetriq in the past. ED is not an issue.He is taking Isosorbide. VB-Vcitwyc-Ykbidag Work Phone: [phone]) 576-429512-07-2022 History of Present illness Narrative* 61 year old male with PMH of asthma (positive methacholine), laryngeal spasm, former tobacco use, NSTEMI s/p RCA stent (2021) who presents to pulmonary clinic after a recent hospitalization for pneumonia. * Patient presented to the [facility] on 01/24 and was told that [...] pack per day, social etoh, no illicits. 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 His weight is 223 pounds. OC-Qefrxpuvui-Mkmijg [address] [place] Work Phone: 1([phone]) 383-397309-27-2022 History of Present illness Narrative* 11/14/2021: Office [...] room air. His weight is 223 pounds. [facility] Work Phone: 1([phone]) 552-470608-24-2022 History of Present illness Narrative* 10/11/2021: Mr [...] started on atorvastatin 80mg following his cath). XN-Crgsntofxr-Sahocc [address] [place] Work Phone: [phone]) 388-492207-26-2022 History of Present illness Narrative* 09/12/2021: Mr [...] started on atorvastatin 80mg following his cath). 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 It didn't occur [...] He has gone to the ER in [place] a few times. He states that sometimes [...] He saw ENT (Dr. Bobby Chavez) in [place] and had a rhinoscopy and didn't recall any abnormal findings. Was referred to a latin american studies professor but never had an appointment scheduled. 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 * Pertinent Allergy/Immunology family history: * No family history of angioedema * No family of asthma, allergies * Grave's disease in family * Mother had breathing issues but not diagnosed as asthma to their knowledge. Also has Parkinson's. XX-Pvpiktbnrq-Agcko 204 [place] Work Phone: [phone] 448-365601-18-2022 History of Present illness Narrative* This is [...] last month. He has been working with [employer] on respiratory retraining. * Recall: 03/07/2021 FREDDIE COLE is a 60 year old male with SOB and concern for angioedema referred to me today by Dr. Kendrick from allergy/immunology. He had normal C4 and C1 esterace labs and also complains of voice changes and chronic cough in addition to SOB. He was seen by Dr. Chavez with [facility] per report. * He reports that he [...] drug use. * FHx: reviewed. Includes: Emphysema QZ-Liubljlverykyx-Shkuyzmx Work Phone: 1([phone]) 337-447501-18-2022 History of Present illness Narrative* This is [...] last month. He has been working with [employer] ADVIS[employer] on respiratory retraining. * Recall: 03/07/2021 FREDDIE [...] drug use. * FHx: reviewed. Includes: Emphysema [facility] Work Phone: [phone] 156-739112-26-2021 History of Present illness Narrative* FREDDIE COLE [...] drug use. * FHx: reviewed. Includes: Emphysema SY-Sjyktkgvoeascf-Pkdjdnu Voice Work Phone: 1(804) 929-758611-21-2021 History of Present illness NarrativePatient presents to [...] UTI's. Years ago.. ED is not an uutuxLQ-Ueecrno-Cgolykin HC [address] DO Work Phone: 1([phone] 972-536411-21-2021 History of Present illness NarrativePatient is here [...] of Prostate CA.. 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 Has seen a tube blower and had endoscopy. 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 Has seen a tube blower and had endoscopy. 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 Has seen a tube blower and had endoscopy. 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 It didn't occur [...] He has gone to the ER in [place] a few times. He states that sometimes [...] He saw ENT (Dr. Bobby Chavez) in [place] and had a rhinoscopy and didn't recall any abnormal findings. Was referred to a latin american studies professor but never had an appointment scheduled. 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 * Pertinent Allergy/Immunology family history: * No family history of angioedema * No family of asthma, allergies * Grave's disease in family * Mother had breathing issues but not diagnosed as asthma to their knowledge. Also has Parkinson's. [facility] Work Phone: [phone]) 242-348001-12-2020 History of Present illness Narrative* Mr. 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 It didn't occur [...] He has gone to the ER in [place] a few times. He states that sometimes [...] He saw ENT (Dr. Bobby Chavez) in [place] and had a rhinoscopy and didn't recall any abnormal findings. Was referred to a latin american studies professor but never had an appointment scheduled. 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 * Pertinent Allergy/Immunology family history: * No family history of angioedema * No family of asthma, allergies * Grave's disease in family * Mother had breathing issues but not diagnosed as asthma to their knowledge. Also has Parkinson's. [facility] Work Phone: [phone] 465-487501-10-2020 History of Present illness Narrative* Mr. 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 It didn't occur [...] He has gone to the ER in [place] a few times. He states that sometimes [...] He saw ENT (Dr. Bobby Chavez) in [place] and had a rhinoscopy and didn't recall any abnormal findings. Was referred to a latin american studies professor but never had an appointment scheduled. 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 * Pertinent Allergy/Immunology family history: * No family history of angioedema * No family of asthma, allergies * Grave's disease in family * Mother had breathing issues but not diagnosed as asthma to their knowledge. Also has Parkinson's. [id number] DO Work Phone: Consult note Author Estevan Haywood [facility] March 19, 2023 10:39am Note Date/Time March 19, 2023 1 0:39am [facility] Medical Records Department [address] [place] [address] Counseling Note - Pharmacy 03/19/23 1039 MR#: [id number] Acct: [id number] Name: FREDDIE COLE Rep #:[id number] : 1960 62 From: Estevan Haywood PCP: Dr. Biju Lobo, DO Status:ADM IN Y Location: [facility] [id number] Pharmacy AL Med Reconciliation Pharmacy Service has performed discharge [...] signed by Estevan tucker> Date _ Estevan Linder Signature (if applicable): Date CC: ~ Signed [facility] Work Phone: Discharge summary Author Harrison Spears [facility] March 19, 2023 10:27am Note Date/Time March 19, 2023 1 0:25am [facility] Medical Records Department [address] [place] [address] Discharge Summary 03/19/23 1023 MR#: [id number] Acct: [id number] Name: FREDDIE COLE Rep #:[id number] : 1960 62 From: Harrison Spears DO PCP: Dr. Biju Lobo DO Status:ADM IN [id number] Prov[facility] Date of Admission: 03/16/23 Primary Care Physician: Dr. Biju Lobo, DO Consultations 03/16/23 15:32 Consult: Gastroenterology Routine Consulting Provider: [facility] Reason for Consult: diarrhea/abd cramps for [...] cortical renal cyst. * discussed with the tube blower Dr. Beauchamp. Consult requested. * Stool studies: [...] % (Auto) 67.0, Lymph % (Auto) 22.9, Newton % (Auto) 7.6, Eos % (Auto) 2.0, [...] [Primary Care Provider] - Within 2 Weeks [facility] [Provider Group] - Within 2 Weeks Disposition Disposition (needs filled in before D/C Order can be placed): Home, Self Care Charges/Coding Visit Charges Inpatient E&M: 44966 Disch Hosp >30min 03/19/23 1027 <Electronically signed by Harrison Spears DO> Cosigner Signature (if applicable): CC: Dr. Harrison Spears DO; Dr. Biju Lobo DO~ Signed [facility] Work Phone: Evaluation note* Skin: Warm, [...] developed, awake/alert/oriented x3, no distress and cooperative [facility] assessment information available [facility] Work Phone: Evaluation note* Diagnosis Onset Date Resolution Status Fatigue acute Hypersomnia acute Mild cognitive impairment ac [place] Parkinson's disease acute [facility] Work Phone: Evaluation note* Diagnosis Onset Date Resolution Status Fatigue acute Hypersomnia acute Mild cognitive impairment ac [place] Parkinson's disease acute Asthma acute Observed sleep apnea acute Chronic diastolic (congestive) heart failure [facility] Work Phone: Evaluation note* Diagnosis Onset Date Resolution Status Fatigue acute Hypersomnia acute Mild cognitive impairment ac [place] Parkinson's disease chronic Asthma acute Observed sleep apnea acute Chronic diastolic (congestive) heart failure chronic MARYJO (obstructive sleep apnea) acute Smoking greater than 30 pack years chronic Carotid artery, internal, occlusion acute Parkinson's disease [facility] Work Phone: Evaluation note* Diagnosis Onset Date Resolution Status Asthma acute Observed sleep apnea acute Chronic diastolic (congestive) heart failure chronic MARYJO (obstructive sleep apnea) acute Smoking greater than 30 pack years chronic Carotid artery, internal, occlusion acute Parkinson's disease [facility] Work Phone: Evaluation note* Diagnosis Onset Date Resolution Status MARYJO (obstructive sleep apnea) acute Smoking greater than 30 pack years chronic Carotid artery, internal, occlusion acute Parkinson's disease chronic Asthma acute Asthma acute Observed sleep apnea acute Chronic diastolic (congestive) heart failure chronic [facility] Work Phone: Evaluation note* Diagnosis Onset Date Resolution Status Asthma acute Asthma acute Observed sleep apnea acute Chronic diastolic (congestive) heart failure chronic Carotid artery, internal, occlusion acute [facility] Work Phone: Evaluation note* Diagnosis Onset Date Resolution Status Asthma chronic Observed sleep apnea acute Asthma chronic Chronic diastolic (congestive) heart failure chronic Carotid artery, internal, occlusion acute Oral thrush acute Asthma chronic Acute hypoxemic respiratory failure acute CAD (coronary artery disease) acute Diarrhea acute Orthostatic hypotension acut e Pneumonia acute Asthma chronic Chronic diastolic (congestive) heart failure [facility] Work Phone: Evaluation note* Diagnosis Onset Date Resolution Status Observed sleep apnea acute Asthma chronic Chronic diastolic (congestive) heart failure chronic Carotid artery, internal, occlusion acute Oral thrush acute Asthma chronic Acute hypoxemic respiratory failure acute CAD (coronary artery disease) acute Diarrhea acute Orthostatic hypotension acut e Pneumonia acute Asthma chronic Chronic diastolic (congestive) heart failure [facility] Work Phone: Evaluation note* Diagnosis Onset Date Resolution Status Observed sleep apnea acute Carotid artery, internal, occlusion acute Oral thrush acute Diarrhea resolved Orthostatic hypotension reso lved [facility] Work Phone: Evaluation note* Diagnosis Onset Date Resolution Status Carotid artery, internal, occlusion acute Oral thrush acute Diarrhea resolved Orthostatic hypotension reso lved [facility] Work Phone: Evaluation note* Diagnosis Onset Date Resolution Status Carotid artery, internal, occlusion acute Asthma acute Oral thrush acute MARYJO (obstructive sleep apnea) chronic Asthma acute Diarrhea resolved Orthostatic hypotension reso lved Asthma acute Cough acute Dyspnea acute Moist mucous membranes of ear, nose, and throat acute MARYJO (obstructive sleep apnea) [facility] Work Phone: Evaluation note* Diagnosis Benign prostatic hyperplasia with urinary obstruction and other lower urinary tract symptoms- Primary Nocturia Erectile disorder documented in this encounter [facility] Work Phone: Evaluation note* Diagnosis Onset Date [...] on exertion chronic 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, organizational effectiveness consultant juan Vocal cord dysfunction acute Asthma chronic Diastolic dysfunction chroni c Hypoxia chronic MARYJO (obstructive sleep apnea) chronic Shortness of breath on exertion chronic [facility] Work Phone: Evaluation note* Diagnosis 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 Stridor Dyspnea on exertion Other dyspnea and respiratory abnormality [facility] Diagnosis 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 dependence Tracheostomy status Postoperative pain Other acute postoperative pain [facility] Diagnosis 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 [facility] Diagnosis 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 [facility] Diagnosis Benign prostatic hyperplasia with urinary obstruction and other lower urinary tract symptoms Nocturia Erectile disorder Urinary incontinence, unspecified type Recurrent UTI Urinary tract infection, site not specified documented in this encounter [facility] Work Phone: Evaluation note* Diagnosis 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 May benefit from GI referral.[id number] Work Phone: Hospital Discharge instructions* Activity:activity as [...] seeing for your laryngealspasm. Take care, [facility] Medicine Team1. DAPT with aspirin and Plavix [...] Up Appointment 1:Physician/Dept/Service: [facility] Biju [facility] F[facility]U [facility] to Schedule in: 1 week, Office to call patient directly to schedule appointmentLocation: [facility] [address] [place], [place] [address]Jhrie Number: [phone]: Please arrive 10-15 minutes early, wear a mask prior to entering the building, bring discharge summary, bring photo ID, current list of medications & dosages, insurance cards and any copay that may apply. If unable to keep this appointment, please call to cancel at least 24 hrs prior to appointment. * Follow Up Appointment 2:Physician/Dept/Service: Jayne Godinez RESEARCH LAB ASSISTANT - CardiologyScheduled Date/Time: 23-Jun-2021 14:30Location: [facility] [address] [facility] [address], [place], [place] [address]Tfflh Number: [phone]: Please wear a mask when entering the [...] in the next few days. Please call [phone] ( ) if you do not hear back by then to inquire about appointment. Please arrive 15 minutes early and bring photo ID, insurance card, and medication list. If unable to attend appointment, please call to cancel within 24 hours. [facility] Additional Instructions Follow-up with your pharmacist per diem at [facility] as soon as possible. [facility] Work Phone: Hospital Discharge instructionsAmbulatory Orders* Phase II, Outpatient Pulmonary Rehab Location: None [facility] Work Phone: Reason for referral (narrative)No reason for referral information availableWMercy Health St[facility] Work Phone: Chief Complaint Patient here for [...] CHG CT SOFT TISSUE NECK W/CONTRAST MATERIAL Hemant Galvan MD [address] [place] [address] [address] [place] [address] Referral ID Status Reason Start Date Expiration Date V isits Requested Visits Authorized [id number] New Request 07/10/2023 08/03/2024 1 1 Specialty Diagnoses / Procedures Referred By Eb anderson Referred To Contact Social Work Diagnoses Tracheostomy dependence Hemant Galvan MD [address] [facility] [address] [place] [address] Referral ID Status Reason Start Date Expiration Date V isits Requested Visits Authorized [id number] New Request 09/06/2023 09/30/2024 1 1 Specialty Diagnoses / Procedures Referred By Contac t Referred To Contact Procedures PLATELET MONITORING PER PROTOCOL Hemant Galvan MD [address] [place] [phone] Referral ID Status Reason Start Date Expiration Date V isits Requested Visits Authorized [id number] New Request 09/02/2023 09/26/2024 1 1 Specialty Diagnoses / Procedures Referred By Contac t Referred To Contact Procedures DVT/VTE RISK ASSESSMENT Hemant Galvan MD [address] [place] [phone] Referral ID Status Reason Start Date Expiration Date V isits Requested Visits Authorized [id number] New Request 09/02/2023 09/26/2024 1 1 Specialty Diagnoses / Procedures Referred By Contac t Referred To Contact [address] [place] [address] Referral ID Status Reason Start Date Expiration Date Visits Re quested Visits Authorized Specialty Diagnoses / Procedures Referred By Contac t Referred To Contact Procedures NO MECHANICAL DVT PROPHYLAXIS Hemant Galvan MD [address] [place] [phone] Referral ID Status Reason Start Date Expiration Date V isits Requested Visits Authorized [id number] New Request 09/02/2023 09/26/2024 1 1 Specialty Diagnoses / Procedures Referred By Contac t Referred To Contact Procedures LOW RISK - NO PHARMACOLOGICAL DVT PROPHYLAXIS Hemant Galvan MD [address] [place] [phone] Referral ID Status Reason Start Date Expiration Date V isits Requested Visits Authorized [id number] New Request 09/02/2023 09/26/2024 1 1 Referral ID Status Reason Start Date Expiration Date V isits Requested Visits Authorized [id number] New Request 09/02/2023 09/26/2024 1 1 Chief [...] disease Chief Complaint E ORDERS/ADD'L ORDER DR WALKER HYPERSOMNIA, PARASOMNIA [...] of Breath INT LAB AND RAD S.O.B (YAMIL) E-ORDER 3 M FU INT LABS Reason [...] 2024 1:45pm Asthma-COPD overlap syndrome July 15, 1:42pm MARYJO (obstructive sleep apnea) July 15, [...] 2024 1:45pm Asthma-COPD overlap syndrome July 15, 1:42pm MARYJO (obstructive sleep apnea) July 15, 2024 1:42pm Parkinson's disease July 23, 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, 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 Carotid artery, internal, occlusion July 23, 2024 11:31am Dysphagia July 23, 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 Chief Complaint Admit Date ACUTE VISIT May [...] wk FU September 02, 2024 11:1 1am COPD GOLD III Severe September 07, 2024 1:5 0pm COPD GOLD III Severe September 11, 2024 1:0 0pm Reason for Visit Admit Date Parkinson's disease [...] 11:31am Dysphagia July 23, 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 Asthma-COPD overlap syndrome September 02, 2024 11:11am Family History Unknown Family Member Name Dates [...] Recorded Date/ Time Living Will Yes January 13 7:03pm Power of Engraver Wood Yes January 13, 2021 7:03pm Advance Directive Response Recorded Date/ Time Living Will Yes January 24 9:09am Power of Engraver Wood Yes January 24, 2022 9:09am Name of Medical Power of Engraver Wood KIKE COLE January 24, 2022 9:09am Advance Directive Response Recorded Date/ Time Living Will Yes January 24 10:09am Power of Engraver Wood Yes January 24, 2022 10:09am Name of Medical Power of Engraver Wood KIKE COLE January 24, 2022 10:09am Advance Directive Response Recorded Date/ Time Living Will Yes January 24 10:09am Power of Engraver Wood Yes January 24, 2022 10:09am Advance Directive Response Recorded Date/ Time Living Will Yes January 24 9:09am Power of Engraver Wood Yes January 24, 2022 9:09am Advance Directive Response Recorded Date/ Time Living Will No March 16 10:03am Power of Engraver Wood No March 16, 2023 10:03am Advance Directive Response Recorded Date/ Time Living Will No March 16 3:20pm Power of Engraver Wood No March 16, 2023 3:20pm Advance Directive Response Recorded Date/ Time Name of Medical Power of Engraver Wood spouse May 03, 2023 10:19am Living Will Yes May 03, 2023 10:19am Power of Engraver Wood Yes May 02 10:19am Date Activated Date Inactivated Comments 09/02/2023 1:35 PM Date Activated Date Inactivated Comments 09/02/2023 1:35 PM Advance Directive Response Recorded Date/ Time Living Will No October 27, 2 024 3:19pm Power of Engraver Wood No October 28, 2023 3:19pm Living Will Yes October 29, 2023 9:10pm Power of Engraver Wood Yes October 9:10pm Living Will Yes March 08 3:50pm Power of Engraver Wood Yes March 08, 2024 3:50pm Name of Medical Power of Engraver Wood Machelle Cole March 08, 2024 3:50pm Advance Directive Response Recorded Date/ Time Living Will No October 27, 2 024 4:19pm Do you have a Healthcare Pow er of Engraver Wood? No October 28, 2023 4:19pm Living Will Yes October 29, 2023 10:10pm Do you have a Healthcare Pow er of Engraver Wood? Yes October 29, 2023 10:10pm Living Will Yes March 08 4:50pm Do you have a Healthcare Pow er of Engraver Wood? Yes March 08, 2024 4:50pm Name of Medical Power of Engraver Wood Machelle Cole March 08, 2024 4:50pm Advance Directive Response Recorded Date/ Time Living Will No October 27, 024 4:19pm Do you have a Healthcare Power of Engraver Wood? No October 28, 2023 4:19pm Living Will Yes October 29, 2023 10:10pm Do you have a Healthcare Power of Engraver Wood? Yes October 29, 2023 10:10pm Advance Directive Response Recorded Date/ Time Living Will No October 27, 024 4:19pm Do you have a Healthcare Power of Engraver Wood? No October 28, 2023 4:19pm Advance Directive Response Recorded Date/ Time Advance Directives on File No September 07, 2024 2:12pm Living Will Yes September 07, 2024 2:32pm Do you have a Healthcare Power of Engraver Wood? Yes September 07, 2024 2:32pm Summary Purpose Additional Source Comments <item> Privacy [...] section and content) DATE CREATED AUTHOR 10/28/2021 [facility] DATE CREATED AUTHOR AUTHOR'S ORGANIZ ATION 12/13/2021 [facility] DATE CREATED AUTHOR AUTHOR'S ORGANIZ ATION 09/26/2022 [employer] DATE CREATED AUTHOR AUTHOR'S ORGANIZ ATION 03/29/2023 [facility] DATE CREATED AUTHOR AUTHOR'S ORGANIZ ATION 03/31/2023 [facility] DATE CREATED AUTHOR AUTHOR'S ORGANIZ ATION 05/30/2023 [facility] DATE CREATED AUTHOR AUTHOR'S ORGANIZ ATION 03/10/2024 [facility] DATE CREATED AUTHOR AUTHOR'S ORGANIZ ATION 06/27/2024 [facility] DATE CREATED AUTHOR AUTHOR'S ORGANIZ ATION 09/15/2024 [facility] Care Teams (unrecognized sec tion and content) Team Status: Active Member Role Status Dates Dr. Biju Lobo DO Family Provider Active Dr. Biju Lobo DO Primary Care Provider Active Team Status: Inactive Member Role Status Dates Dr. Biju Lobo DO Primary Care Provider Active Vega Vera MD Attending Provider, Emergency Provid er Active Team Status: Inactive Member Role Status Dates Dr. Biju Lobo DO Primary Care Provider Active Dr. Rj Trammell II, MD Attending Provider, Referring Pro vider Active Team Status: Inactive Member Role Status Dates Dr. Biju Lobo DO Primary Care Provider Active GUILLERMO ROONEY Attending Provider Active Team Status: Inactive Member Role Status Dates Dr. Biju Lobo DO Primary Care Prov ider, Attending Provider, Referring Provider Active Team Status: Active Member Role Status Dates Dr. Biju Lobo , DO Primary Care Provider, Other Pr ovider Active Dr. Wolfgang Shetty , DO Attending Provider Active Team Status: Inactive Member Role Status Dates Dr. Biju Lobo , DO Primary Care Provider, Attendin g Provider Active Team Status: Active Member Role Status Dates Dr. Biju Lobo , DO Primary Care Prov ider, Referring Provider, Other Provider Active Dr. Wolfgang Shetty DO Attending Provider Active Team Status: Inactive Member Role Status Dates Dr. Biju Lobo , DO Primary Care Provider Active Dr. Christian [...] Provider, Other Provider Active Dr. Bobby Shetty , DO Attending Provider Active Team Status: [...] Provider, Referrin g Provider Active Karen Lora BROADCAST TECHNICIAN, BROADCAST TECHNICIAN-C Attending Provider Active Team Status: Inactive Member Role Status Dates Dr. Biju Lobo DO Primary Care Provider Active Karen Lora BROADCAST TECHNICIAN, BROADCAST TECHNICIAN-C Attending Provider, Referrin g Provider Active Team Status: Inactive Member Role Status Dates Dr. Biju Lobo , DO Primary Care Provider Active Karen Lora BROADCAST TECHNICIAN, BROADCAST TECHNICIAN-C Attending Provider Active Team Status: Active Member [...] Ravinder Beauchamp , DO Attending Provider Active Team Status: [...] Ravinder Beauchamp , DO Attending Provider Active Team Status: Active Member Role Status Dates Dr. Biju Lobo , DO Primary Care Provider Active Dr. Moses Grady DO Emergency Provider Active Dr. Delfin Russell MD Admit Provider, Other Provider Active Dr. Harrison Spears , DO Attending Provider, Other Provid er Active Team Status: Inactive Member Role Status Dates Dr. Biuj Lobo , DO Primary Care Provider Active Dr. Moses Grady DO Emergency Provider Active Dr. Delfin Russell MD Admit Provider, Other Provider Active Dr. Harrison Spears , DO Attending Provider Active Team Status: [...] , DO Primary Care Provider Active Dr. Rj Trammell II, MD Attending Provider Active Team Status: Active Member Role Status Dates Dr. Biju Lobo , DO Primary Care Provider Active Karen Lora BROADCAST TECHNICIAN, BROADCAST TECHNICIAN-C Attending Provider, Referrin g Provider Active Tax Agent Relationship Specialty Start Date End Date Biju Lobo DO PCP - General 01/25/21 Biju Lobo DO [address] [place] [address] PCP - MMO ACO PCP 02/18/23 Team Status: Inactive Member Role Status Dates Dr. Biju Lobo , Primary Care Provider, Referrin g Provider Active Dr. Gilbert Hoang MD Attending Provider Active Team Status: Active Member Role Status Dates Dr. Biju Lobo DO Primary Care Provider Active Brenda Coker BROADCAST TECHNICIAN, BROADCAST TECHNICIAN-C Attending Provider, Referring P misa Active Dr. Gilbert Hoang MD Other Provider Active Team Status: Inactive Member Role Status Dates Dr. Biju Lobo DO Primary Care Provider Active Dr. Gilbert Hoang MD Attending Provider, Referring Pr ovider Active Tax Agent Relationship Specialty Start Date End Date Biju Lobo DO [address] [place] [address] [place] [address] PCP - General Family Medicine 06/28/23 Rajinder Grijalva MD [address] [place], [place] [address] Referring Provider Otolaryngology 07/03/23 Tax Agent Relationship Specialty Start Date End Date Bjiu Lobo DO [address] [place] [address] [place] [phone] PCP - General Family Medicine 06/28/23 09/02/23 Gilbert Hoang MD [address] [place], [place] [phone] PCP - Referring 1 Cardiovascular Disease 09/03/23 Biju Lobo DO [address] [place] [address] [place] [phone] PCP - General Family Medicine 09/03/23 Rajinder Grijalva MD [address] [place], [place] [address] Referring Provider Otolaryngology 07/03/23 Tax Agent Relationship Specialty Start Date End Date Gilbert Hoang MD [address] [id number] PCP - Referring 1 Cardiovascular Disease 09/03/23 Biju Lobo DO [address] [place] [address] [place] [address] PCP - General Family Medicine 09/03/23 Rajinder Grijalva MD [address] [place], [place] [phone] Referring Provider Otolaryngology 07/03/23 Tax Agent Relationship Specialty Start Date End Date Gilbert Hoang MD [address] [facility] [address] [place], [place] [address] PCP - Referring 1 Cardiovascular Disease 09/03/23 Biju Lobo DO [address] [place] [address] [place] [phone] PCP - General Family Medicine 09/03/23 Rajinder Grijalva MD [address] [place], [place] [phone] Referring Provider Otolaryngology 07/03/23 Tax Agent Relationship Specialty Start Date End Date Biju Lobo DO PCP - General 01/25/21 Tax Agent Relationship Specialty Start Date End Date Gilbert Hoang MD [address] [facility] [address] [place], [place] [phone] PCP - Referring 1 Cardiovascular Disease 09/03/23 Biju Lobo DO [address] [place] [address] [place] [phone] PCP - General Family Medicine 09/03/23 Rajinder Grijalva MD [address] [place], [place] [phone] Referring Provider Otolaryngology 07/03/23 Team Status: Active [...] April 15, 2024 End: April 15, 2024 MAHAMED Castrejon Attending Provider Active Start: April 15, 2024 End: April 15, 2024 Tax Agent Relationship Specialty Start Date End Date Gilbert Hoang MD [address] [id number] PCP - Referring 1 Cardiovascular Disease 09/03/23 Biju Lobo DO [address] [id number] PCP - General Family Medicine 09/03/23 Rajinder Grijalva MD [address] [place], [place] [id number] Referring Provider Otolaryngology 07/03/23 Team Status: Inactive [...] May 27, 2024 End: May 27, 2024 Tita Wick , EPIFANIO-C Attending Provider Active Start: May 27, 2024 [...] 2024 End: June 29, 2024 Tita Wick BROADCAST TECHNICIAN-C Attending Provider Active Start: June 29, 2024 End: June 29, 2024 Tita Wick BROADCAST TECHNICIAN-C Referring Provider Active Start: June 29, 2024 End: June 29, 2024 Team Status: Active Member Role Status Dates Dr. Biju Lobo DO Primary Care Provider Active Start: July 02, 2024 Tita Wick BROADCAST TECHNICIAN-C Attending Provider Active Start: July 02, 2024 Tita Wick BROADCAST TECHNICIAN-C Referring Provider Active Start: July 02, 2024 Team Status: Inactive Member Role Status Dates Dr. Biju Lobo DO Primary Care Provider Active Start: July 02, 2024 End: July 02, 2024 Tita Wick BROADCAST TECHNICIAN-C Attending Provider Active Start: July 02, 2024 End: July 02, 2024 Tita Wick BROADCAST TECHNICIAN-C Referring Provider Active Start: July 02, 2024 End: July 02, 2024 Team Status: Active Member Role Status Dates Dr. Biju Lobo DO Primary Care Provider Active Start: July 03, 2024 Tita Wick BROADCAST TECHNICIAN-C Referring Provider Active Start: July 03, 2024 Tita Wick BROADCAST TECHNICIAN-C Other Provider Active St art: July 03, [...] July 15, 2024 End: July 15, 2024 MAHAMED Castrejon Attending Provider Active Start: July 15, 2024 [...] 2024 End: June 29, 2024 Tita Wick NP-C Attending Provider Active Start: June 29, 2024 End: June 29, 2024 Tita Wick NP-C Referring Provider Active Start: June 29, 2024 End: June 29, 2024 Team Status: Active Member Role/Relationship Status Dates Dr. Biju Lobo DO Primary Care Provider Active Start: June 29, 2024 Dr. Richard Munoz DO Attending Provider Active S tart: June 29, 2024 Tita Wick NP-C Referring Provider Active Start: June 29, 2024 Team Status: Inactive Member Role/Relationship Status Dates Dr. Biju Lobo DO Primary Care Provider Active Start: July 02, 2024 End: July 02, 2024 Tita Wick NP-C Attending Provider Active Start: July 02, 2024 End: July 02, 2024 Tita iWck NP-C Referring Provider Active Start: July 02, 2024 End: July 02, 2024 Team Status: Active Member Role/Relationship Status Dates Dr. Biju Lobo DO Primary Care Provider Active Start: July 03, 2024 MAHAMED Castrejon Referring Provider Active Start: July 03, 2024 MAHAMED Castrejon Other Provider Active St art: July 03, [...] August 04, 2024 End: August 04, 2024 HUMBERTO CastrejonC Attending Provider Active Start: August 04, 2024 End: August 04, 2024 MAHAMED Castrejon Referring Provider Active Start: August 04, 2024 End: August 04, 2024 Team Status: Inactive Member Role/Relationship Status Dates Dr. Biju Lobo DO Primary Care Provider Active Start: September 02, 2024 End: September 02, 2024 Dr. Biju Lboo DO Referring Provider Active Start: September 02, 2024 End: September 02, 2024 Dr. Richard Munoz DO Attending Provider Active S tart: September 02, 2024 End: September 02, 2024 Team Status: Inactive Member Role/Relationship Status Dates Dr. Biju Lobo DO Primary Care Provider Active Start: September 07, 2024 End: September 07, 2024 Dr. Richard Munoz DO Attending Provider Active S tart: September 07, 2024 End: September 07, 2024 Dr. Richard Munoz DO Referring Provider Active S tart: September 07, 2024 End: September 07, 2024 Team Status: Active Member Role/Relationship Status Dates Dr. Biju Lobo DO Primary Care Provider Active Start: September 11, 2024 Dr. Richard Munoz DO Attending Provider Active S tart: September 11, 2024 Dr. Richard Munoz DO Referring Provider Active S tart: September 11, 2024 Reason for Visit (unrecogniz ed section and content) Reason Comments Trach Change Specialty Diagnoses / Procedures Referred By Contac t Referred To Contact Otolaryngology Diagnoses ret 3 mo f/u, trach change [id number] Procedures RETURN PATIENT W/ SCOPE [facility] [address] [facility] [address] [address] Phone: tel: fax: Hemant Galvan MD [address] [facility] [address] [place] [address] Phone: tel: fax: Referral ID Status Reason Start Date Expiration Date V isits Requested Visits Authorized [id number] New Request 06/24/2024 07/19/2025 1 1 Reason Comments Yearly w/ PSA Reason Comments Breathing Problem Specialty Diagnoses / Procedures Referred By Contac t Referred To Contact Voice & Swallowing Diagnoses Bilateral vocal cord paralysis Stridor Dysphonia Rajinder Grijalva MD [address] [place] [address] [facility] [address] [place] [address] Referral ID Status Reason Start Date Expiration Date V isits Requested Visits Authorized [id number] New Request 07/02/2023 07/26/2024 1 1 Specialty Diagnoses / Procedures Referred By Eb anderson Referred To Contact Diagnoses 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 [address] [place] [address] [facility] [address] [place] [address] Referral ID Status Reason Start Date Expiration Date Visits Re quested Visits Authorized [id number] 1 Reason Comments Post Op Visit Reason Comments Blood in Urine Scheduled Active and Recently Administ ered Medications (unrecognized section and content) Medication Order 09/05/2023 09/06/2023 09/07/2023 aspirin chewable tablet 81 mg 81 mg, Oral, DAILY, First dose on Sat09/03/23 at 0900, Until Discontinued 0823 (Given - Provider: David Caruso RN) 0832 (Given - Provider: eRyna Baltazar RN) 0826 (Given - Provider: Reyna Baltazar RN) budesonide-glycopyrrola te-Formoterol (BREZTRI) 160-9-4.8 MCG/ACT inhaler 2 puff 2 puff, Inhalation, 2 TIMES DAILY, First dose on Sat09/03/23 at 1800, Until Discontinued 0759 (Given - Provider: Shirley Hendrix RCP)2100 (Canceled Entry - Provider: System Discharge - Comment: Automatically canceled at discontinue of medication order) 1028 (Given - Provider: Angelica Conley, Limited Permit Chu)2016 (Given - Provider: Cayetano Lundberg Limited Permit Chu) 0855 (Given - Provider: Iona Dickinson Limited Permit Chu) Carbidopa-levodopa (SINEMET) 25-100 MG per tablet 2 tablet 2 tablet, Oral, 3 TIMES DAILY, First dose on Sat09/02/23 at 1600, Until Discontinued 0823 (Given - Provider: David Caruso RN)1557 (Given - Provider: David Caruso RN)2042 (Given - Provider: Rudy Medley RN) 0832 [...] route. 1149 (Given - Provider: David Caruso RN)2042 (Given - Provider: Rudy Medley RN) 0838 [...] Baltazar RN) 0828 (Given - Provider: Reyna Baltazar, JAZIEL) furOSEmide (LASIX) tablet 40 mg 40 mg, Oral, DAILY, First dose on Sat09/03/23 at 0900, Until Discontinued 1202 (Given - Provider: David Caruso RN) 0832 (Given - Provider: Reyna Baltazar RN) 0829 (Given - Provider: Reyna Baltazar RN) Levothyroxine (SYNTHROID) tablet 150 mcg 150 mcg, Oral, DAILY BEFORE BREAKFAST, First dose on Sat09/03/23 at 0600, Until Discontinued 0515 (Given - Provider: Gabrielle Conte, RN) 0548 (Given - Provider: Rudy Medley, JAZIEL) 0537 (Given - Provider: Hoang Gonzalez RN) Metoprolol succinate (TOPROL-XL) tablet XL 12.5 mg 12.5 mg, Oral, DAILY, First dose on Sat09/03/23 at 0900, Until Discontinued, Slow release product. Do not crush. Extended release can be cut in half. 0823 (Given - Provider: David Caruso RN) 0832 (Given - Provider: Reyna Baltazar RN) 0826 (Given - Provider: Reyna Baltazar RN) Pantoprazole (PROTONIX) tablet DR 40 mg 40 mg, Oral, DAILY, First dose on Sat09/03/23 at 0900, Until Discontinued, Swallow whole; do not crush or chew., Indications: Continuation of Home Therapy 0823 (Given - Provider: David Caruso RN) 0832 (Given - Provider: Reyna Baltazar RN) 0826 (Given - Provider: Reyna Baltazar, JAZIEL) Rosuvastatin (CRESTOR) tablet 5 mg 5 mg, Oral, DAILY, First dose on Sat09/03/23 at 0900, Until Discontinued 08 (Given - Provider: David Caruso RN) 0832 (Given - Provider: Reyna Baltazar RN) 0828 (Given - Provider: Reyna Baltazar, JAZIEL) Senna (SENOKOT) tablet 8.6 mg(Linked Group 1) 8.6 mg, Oral, DAILY, First dose on Sat09/03/23 at 0900, Until Discontinued 0823 (Given - Provider: David Caruso RN) 0832 (Given - Provider: Reyna Baltazar, JAZIEL) 0825 (Given - Provider: Reyna Baltazar RN) Senna (SENOKOT) tablet 8.6 mg(Linked Group 1) 8.6 mg, Per NG tube, DAILY, First dose on Sat09/03/23 at 0900, Until Discontinued 0823 (See Alternative - Provider: David Caruso RN) 0832 (See Alternative - Provider: Reyna Baltazar RN) 0825 (See Alternative - Provider: Reyna Baltazar RN) Tamsulosin HCl (FLOMAX) capsule 0.4 mg 0.4 mg, Oral, DAILY, First dose on Sat09/03/23 at 0900, Until Discontinued, Slow release product. Do not chew or crush 0823 (Given - Provider: David Caruso RN) 0832 (Given - Provider: Reyna Baltazar RN) 0826 (Given - Provider: Reyna Baltazar RN) PRN Medication Order 09/05/2023 09/06/2023 09/07/2023 Acetaminophen [...] 48 Hours 1443 (Given - Provider: David Caruso RN) Polyethylene glycol (MIRALAX) packet 17 g(Linked Group [...] BE BASED ON THE PRIMARY CLINICAL RECORDS. [employer] provides no warranty or guarantee of the accuracy or completeness of information in this document.
--- OUTSIDE RECORDS SUMMARY | 2024-09-16 00:12 | XMS RPT_ITS | CCD ---
Author Organization [facility] Care Team Providers Care Junior Financial Analyst Name Role Phone Biju Lobo Unavailable Unavailable Unavailable Unavailable Unavailable Biju Lobo Unavailable Yvan Walker Unavailable Unavailable Macario Bond Unavailable Unavailable Princess Mireille Unavailable Unavailable Giovanni Cantu Unavailable Jayne Godinez Unavailable Dr. Biju Lobo Primary Care UnavailAlfa Florence Attending Brookea Dr. Biju Canales Primary Care Provider Dr. Biju Lobo Other Provider Dr. Wolfgang Shetty Attending Provider Dr. Biju Lobo Referring Provider [phone] Dr. Christian Hernandez Attending Provider Dr. Christian Hernandez Referring Provider Dr. Bobby Shetty Attending Provider Dr. German Nayak Attending Provider Dr. German Nayak Referring Provider Dr. German Nayak Other Provider Dr. Jasson Deng Attending Provider Dr. Richard Munoz Attending Provider Dr. Biju Lobo Primary Care Provider [phone] Biju Loob Referring Provider Geno SUPERVISOR PYROTECHNIC LOADING, SUPERVISOR PYROTECHNIC LOADING-C Karen Attending Provider Dr. Biju Lobo Primary Care Provider [phone] Christian Hernandez Attending Provider [phone] Biju Lobo Primary Care Provider [phone] Biju Lobo Referring Provider Dr. German Nayak Attending Provider Dr. Biju Lobo Primary Care Provider [phone] Biju Lobo Referring Provider Geno SUPERVISOR PYROTECHNIC LOADING, SUPERVISOR PYROTECHNIC LOADING-C Karen Attending Provider Dr. German Nayak Attending Provider Dr. Christian Hernandez Attending Provider [phone] Dr. Harrison Macario Attending Provider Dr. Christian Hernandez Referring Provider [phone] Biju Lobo Primary Care Provider [phone] Biju Lobo Referring Provider Geno SUPERVISOR PYROTECHNIC LOADING, SUPERVISOR PYROTECHNIC LOADING-C Karen Attending Provider [phone] Dr. Moses [...] Provider Dr. Christian Hernandez Referring Provider Geno SUPERVISOR PYROTECHNIC LOADING, SUPERVISOR PYROTECHNIC LOADING-C Karen Attending Provider [phone] Dr. Moses Grady Emergency Provider [phone] Drew, Dr. Lenz Admit Provider Drew, Dr. [...] CUNHA, Dr. Akbar Tatum Attending Provider [phone] Kathe CUNHA, Dr. Akbar Tatum Referring Provider Viktor CUNHA, Dr. Hunt Attending Provider Viktor CUNHA, Dr. Hunt Referring Provider Shamika GODFREY-CTita Attending Provider Biju Lobo DO Primary Care Provider Yamil POWELL, Dr. Peck Primary Care Provider Tonia CUNHA, Dr. Beasley Attending Provider Tonia CUNHA, Dr. Beasley Emergency Provider Yamil DO, Dr. Peck Referring Provider David CUNHA, Dr. Gonzales Attending Provider [phone] Kathe CUNHA, Dr. Akbar Tatum Attending Provider [phone] Kathe CUNHA, Dr. Akbar Tatum Referring Provider Viktor CUNHA, Dr. Hunt Attending Provider Viktor CUNHA, Dr. Hunt Referring Provider Shamika GODFREY-Tita Gale Attending Provider David CUNHA, Dr. Gonzales Referring Provider Amirah CUNHA, Dr. Terry Attending Provider BIJU LOBO A Referring Unavailable CAROLE, HEMANT [...] YAMIL, BIJU A Primary Care Unavailable Shamika SUPERVISOR PYROTECHNIC LOADING-C, Tita Maza Referring Provider Dr. Biju Lobo DO Primary Care Provider Shamika SUPERVISOR PYROTECHNIC LOADING-CTita Other Provider Dr. Richard Munoz DO Attending [...] Referring Unavailable Yamil, Biju Primary Care Unavailable Raoms Randall Attending Unavailable Yamil, Biju Primary Care Unavailable Noah Morgan Attending Unavailable Tita Wick Referring Unavailable Yamil, Biju Primary Care Unavailable Tita Wick Attending Unavailable Yamil, Biju Primary Care Unavailable Nikolai Freeman Consulting Unavailable Nikolai Freeman Admitting Unavailable Delfin Russell Attending Unavailable Frida Newell Consulting Unavailable Danita Spaulding Attending Unavailable Yamil, Biju Primary Care Unavailable Pj Almanza Consulting Unavailable Almanza, Pj Admitting Unavailable Ymail, Biju Primary Care Unavailable Pj Almanza Attending [...] TABS] Allergy to drug (finding) 03-20-2023 Unknown [facility] (20 sources) vibegron; Translations: [VIBEGRON] Allergy to substance 01-24-2022 [facility] Medications Current Medications Medication Drug Class(es) Dates [...] Active docusate sodium 50 mg / sennosides, fci 8.6 mg oral tablet (1 source) Start: [...] MOWEFR October 21, 2023 12:00am bladder nystatin 701861 unt/ml oral suspension (20 sources) Polyene Antifungal [...] day for 10 days polyethylene glycol 3350 53639 mg powder for oral solution (1 source) [...] with food or milk. Respiratory Therapy Supplies [facility] (4 sources) Start: 09-20-2023 [facility] size 6 shiley cuffless [...] Gene Lemus Start: 05-Jun-2021 Generic Substitution Allowed [id number] 200 actuat albuter ol 0.09 mg/actuat metered [...] use Start: 11-16-2022 take 1 puff(s) by [facility] twice daily Budesonide-Formoterol (Symbicort) 160-4.5 mcg/actuation HFA aerosol inhaler Active 2 PUFF INHALATION TWICE A DAY November 15, 2022 11:00pm administer with spacer, rinse mouth after each use Start: 11-16-2022 take 1 puff(s) by [facility] twice daily Budesonide-Formoterol (Symbicort) 160-4.5 [...] 1800, Until Discontinued Start: 07-09-2023 End: 09-18-2023 Jlqnwnsiyn-Uaphjqol-Litgzpgf ol (Breztri Aerosphere) 160-9-4.8 mcg/actuation HFA aerosol inhaler Discontinued 2 NMA INHALATION TWICE A DAY 10.7 3 July 09, 2023 12:00am September 18, 2023 12:55pm breathing Start: 07-09-2023 End: 09-18-2023 Kcggegqyqf-Inskcvwd-Bihpyvaz ol (Breztri Aerosphere) 160-9-4.8 mcg/actuation HFA aerosol inhaler Discontinued 2 NMA INHALATION TWICE A DAY 10.7 July 09, 2023 12:00am September 18, 2023 12:55pm Start: 07-09-2023 End: 09-18-2023 Holjboikcs-Myxconaw-Jphiwpjc ol (Breztri Aerosphere) 160-9-4.8 mcg/actuation HFA aerosol [...] [Coronary atherosclerosis of unspecified type of vessel, ione or graft] Onset: 3 05-17-2022 Chronic Coronary [...] 06-06-2021 Episodic Other aftercare (1 source) Other detention (current) drug therapy; Translations: [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] Onset: 2 Episodic Other [...] Test Name Value Interpretation Reference Range Facility [place] - History AND Physicalon 09-07-2024 [place] - History & Physical Normal [facility] [place] - Individual Treatment Pl anon 09-07-2024 [place] - Individual Treatment Plan Normal [facility] Pulmonary Visit Reporton Pulmonary Visit Report Normal [facility] Chest without Contraston Chest without Contrast Normal [facility] Neurology Visit Reporton Neurology Visit Report Normal [facility] Pulmonary Visit Reporton Pulmonary Visit Report Normal [facility] Modified Barium Swallow Stud yon 07-10-2024 Modified Barium Swallow Study Normal [facility] 6 Minute Walk Teston 025 6 Minute Walk Test Normal [facility] Carotid Duplex Ultrasoundon 06-22-2024 Carotid Duplex Ultrasound Normal [facility] Duplex ultrasound of carotid artery reportOrdered By: Harrison Macario on 06-22-2024 Study report [facility] [place] [address] Carotid Duplex Ultrasound 06/22/24 1304 MR#: [id number] Acct: [id number] Name: FREDDIE COLE Rep #:[id number] : 1960 64 From: Harrison Dyer Attending Dr: Dr. Christian Hernandez MD Status: REG CLI Ordering Dr: Christian Hernandez MD Date: 06/22/24 Location: [facility] Sex: M C Admitted: Reason For Study [...] the left vertebral artery. Procedure Carotid Duplex 81315. 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 [place], [place], [id number] Albumin/Globulin [Mass ratio] 1.1 {ratio} Normal 0.9-2.4 [facility] Comment on above: Performed By: #### L 500.4050, L500.4100 ####[facility] [address] [place], [address] ALK P 81 U/L Normal 45-117 [facility] Comment on above: Performed By: #### L 500.4050, L500.4100 ####[facility] [address] [place], [address] ALT [Catalytic activity/Vol] 27 U/L Normal 16-61 [facility] Comment on above: Performed By: #### L 500.4050, L500.4100 ####[facility] [address] [place], [address] AST [Catalytic activity/Vol] 18 U/L Normal 15-37 [facility] Comment on above: Performed By: #### L 500.4050, L500.4100 ####[facility] [address] [place], [address] Bilirubin [Mass/Vol] 0.80 mg/dL Normal 0.20-1.00 [facility] Comment on above: Result Comment: For patients on eltrombopag therapy, use of Dimension [place] TBIL is not recommended. Performed By: #### L 500.4050, L500.4100 ####[facility] [address] [place], [address] BUN/CRE 18.9 RATIO Normal 10-20 [facility] Comment on above: Performed By: #### L 500.4050, L500.4100 ####[facility] [address] [place], [address] CA,Total 9.3 mg/dL Normal 8.5-10.1 [facility] Comment on above: Performed By: #### L 500.4050, L500.4100 ####[facility] [address] [place], [address] Chloride [Moles/Vol] 106 mmol/L Normal 98-107 [facility] Comment on above: Performed By: #### L 500.4050, L500.4100 ####[facility] [address] [place], [address] CO2 [Moles/Vol] 30.0 mmol/L Normal 21.0-32.0 [facility] Comment on above: Performed By: #### L 500.4050, L500.4100 ####[facility] [address] [place], [address] Creatinine [Mass/Vol] 0.95 mg/dL Normal 0.70-1.30 [facility] Comment on above: Result Comment: The validity of the calculated GFR GFRAA in patients over70 years has not been determined. Clinical correlation isessential. Performed By: #### L 500.4050, L500.4100 ####[facility] [address] [place], [address] EST GFR - AA 102 mL/min Normal >60 [facility] Comment on above: Result Comment: Afri can Tanzanian GFR Calc Performed By: #### L 500.4050, L500.4100 ####[facility] [address] [place], [address] GAP 5 Normal 5-15 [facility] Comment on above: Performed By: #### L 500.4050, L500.4100 ####[facility] [address] [place], [address] GFR/1.73 sq M.predicted among non-blacks MDRD (S/P/Bld) [Vol rate/Area] 84 mL/min/{1.73_m2} Normal >60 [facility] Comment on above: Result Comment: Non- GFR Calc Performed By: #### L 500.4050, L500.4100 ####[facility] [address] [place], [address] Globulin (S) [Mass/Vol] 3.5 g/dL Normal 2.2-4.2 [facility] Comment on above: Performed By: #### L 500.4050, L500.4100 ####[facility] [address] [place], [address] Glucose [Mass/Vol] 95 mg/dL Normal 74-106 [facility] Comment on above: Performed By: #### L 500.4050, L500.4100 ####[facility] [address] [place], [address] Potassium [Moles/Vol] 4.2 mmol/L Normal 3.5-5.1 [facility] Comment on above: Performed By: #### L 500.4050, L500.4100 ####[facility] [address] [place], [address] Sodium [Moles/Vol] 141 mmol/L Normal 136-145 [facility] Comment on above: Performed By: #### L 500.4050, L500.4100 ####[facility] [address] [place], [address] T PROT 7.4 g/dL Normal 6.4-8.2 [facility] Comment on above: Performed By: #### L 500.4050, L500.4100 ####[facility] [address] [place], [address] Urea nitrogen [Mass/Vol] 18 mg/dL Normal 7-18 [facility] Comment on above: Performed By: #### L 500.4050, L500.4100 ####[facility] [address] [place], [address] Lipid Profileon 04-14-2024 Cholesterol [Mass/Vol] 137 mg/dL Normal 200 [facility] Comment on above: Result Comment: <200 mg/dL Desirable 200-240 mg/dL Borderline >240 mg/dL High Risk Performed By: #### L 500.4050, L500.4100 ####[facility] [address] [place], [address] Cholesterol in HDL [Mass/Vol] 64 mg/dL Normal [facility] Comment on above: Result Comment: The drugs N-Acetylcysteine and Metamizole may falselydepress this assay. Reference Range HDL <40 mg/dL Low HDL Cholesterol HDL >or= 60 mg/dL High HDL Cholesterol Performed By: #### L 500.4050, L500.4100 ####[facility] [address] [place], [address] Cholesterol in LDL [Mass/Vol] 56 mg/dL Normal 0-130 [facility] Comment on above: Performed By: #### L 500.4050, L500.4100 ####[facility] [address] [place], [address] Cholesterol in VLDL [Mass/Vol] 17 mg/dL Normal 5-40 [facility] Comment on above: Performed By: #### L 500.4050, L500.4100 ####[facility] [address] [place], [address] Triglyceride [Mass/Vol] 85 mg/dL Normal [facility] Comment on above: Result Comment: The drugs N-Acetylcysteine and Metamizole may falselydepress this assay.Serum Triglycerides Reference Interval Normal <150 mg/dL Borderline high 150 - 199 mg/dL High 200 - 499 mg/dL Very High > or = 500 mg/dL Performed By: #### L 500.4050, L500.4100 ####[facility] [address] [place], [address] Albumin to globulin ratioOrd ered By: Gilbert Hoang on 04-13-2024 Albumin/Globulin [Mass ratio] 1.1 {ratio} 0.9-2.4 [facility] Bilirubin, totalOrdered By: Gilbert Hoang on 04-13-2024 Bilirubin [Mass/Vol] 0.80 mg/dL 0.20-1.00 [facility] Comment on above: For patients on eltr ombopag therapy, use of Dimension [place] TBIL is not recommended. Blood urea nitrogen (BUN)/cr eatinine ratioOrdered By: Gilbert Hoang on 04-13-2024 Urea nitrogen/Creatinine [Mass ratio] 18.9 mg/mg 10-20 [facility] Carbon dioxide measurementOr dered By: Gilbert Hoang on 04-13-2024 CO2 [Moles/Vol] 30.0 mmol/L 21.0-32.0 [facility] Chloride measurementOrdered By: Gilbert Hoang on 04-13-2024 Chloride [Moles/Vol] 106 mmol/L 98-107 [facility] Estimated glomerular filtrat ion rate (GFR) AmericanOrdered By: Gilbert Hoang on 04-13-2024 Estimated GFR (MDRD) Amer 102 mL/min >60 [facility] Comment on above: GFR Calc Glomerular filtration rate ( GFR) estimationOrdered By: Gilbert Hoang on 04-13-2024 Estimated GFR (MDRD) Non-Af Amer 84 mL/min >60 [facility] Comment on above: Non- GFR Calc GFR/1.73 sq M.predicted among non-blacks MDRD (S/P/Bld) [Vol rate/Area] 84 mL/min/{1.73_m2} >60 [facility] Comment on above: Non- GFR Calc Glucose measurementOrdered B y: Gilbert Hoang on 04-13-2024 Glucose [Mass/Vol] 95 mg/dL 74-106 [facility] High density lipoprotein (HD L) measurementOrdered By: Gilbert Hoang on 04-13-2024 Cholesterol in HDL [Mass/Vol] 64 mg/dL >40 [facility] Comment on above: The drugs N-Acetylcy steine and Metamizole may falsely depress this assay. Reference Range HDL <40 mg/dL Low HDL Cholesterol HDL >or= 60 mg/dL High HDL Cholesterol Laboratory - Chemistry and C hemistry - challengeOrdered By: Gilbert Hoang on 04-13-2024 AST [Catalytic activity/Vol] 18 U/L 15-37 [facility] Low density lipoprotein (LDL ) cholesterol measurementOrdered By: Gilbert Hoang on 04-13-2024 Cholesterol in LDL [Mass/Vol] 56 mg/dL 0-130 [facility] Potassium measurementOrdered By: Gilbert Hoang on 04-13-2024 Potassium [Moles/Vol] 4.2 mmol/L 3.5-5.1 [facility] Serum anion gap measurementO rdered By: Gilbert Hoang on 04-13-2024 Anion gap [Moles/Vol] 5 mmol/L 5-15 [facility] Serum globulin measurementOr dered By: Gilbert Hoang on 04-13-2024 Globulin (S) [Mass/Vol] 3.5 g/dL 2.2-4.2 [facility] Serum or plasma alanine hollingsworth otransferase (ALT) measurementOrdered By: Gilbert Hoang on 04-13-2024 ALT [Catalytic activity/Vol] 27 U/L 16-61 [facility] Serum or plasma albumin leona urement (mass/volume)Ordered By: Gilbert Hoang on 04-13-2024 Albumin [Mass/Vol] 3.9 g/dL 3.2-5.0 [facility] Serum or plasma alkaline dorian sphatase measurementOrdered By: Gilbert Hoang on 04-13-2024 ALP [Catalytic activity/Vol] 81 U/L 45-117 [facility] Serum or plasma calcium leona urement (mass/volume)Ordered By: Gilbert Hoang on 04-13-2024 Calcium [Mass/Vol] 9.3 mg/dL 8.5-10.1 [facility] Serum or plasma cholesterol measurement (mass/volume)Ordered By: Gilbert Hoang on 04-13-2024 Cholesterol [Mass/Vol] 137 mg/dL <200 [facility] Comment on above: <200 mg/dL Desirable 200-240 mg/dL Borderline >240 mg/dL High Risk Serum or plasma creatinine m easurement (mass/volume)Ordered By: Gilbert Hoang on 04-13-2024 Creatinine [Mass/Vol] 0.95 mg/dL 0.70-1.30 [facility] Comment on above: The validity of the calculated GFR & GFRAA in patients over 70 years has not been determined. Clinical correlation is essential. Serum or plasma urea nitroge n measurement (mass/volume)Ordered By: Gilbert Hoang on 04-13-2024 Urea nitrogen [Mass/Vol] 18 mg/dL 7-18 [facility] Sodium levelOrdered By: Ramiro Hoang on 04-13-2024 Sodium [Moles/Vol] 141 mmol/L 136-145 [facility] Total proteinOrdered By: Christie Hoang on 04-13-2024 Protein [Mass/Vol] 7.4 g/dL 6.4-8.2 [facility] Triglycerides measurementOrd ered By: Gilbert Hoang on 04-13-2024 Triglyceride [Mass/Vol] 85 mg/dL <199 [facility] Comment on above: The drugs N-Acetylcy steine and Metamizole may falsely depress this assay.Serum Triglycerides Reference Interval Normal <150 mg/dL Borderline high 150 - 199 mg/dL High 200 - 499 mg/dL Very High > or = 500 mg/dL Very low density lipoprotein (VLDL) cholesterol measurementOrdered By: Gilbert Hoang on 04-13-2024 Very low density lipoprotein (VLDL) cholesterol measurement 17 mg/dL 5-40 [facility] VLDL Cholesterol 17 mg/dL 5-40 [facility] Cardiology Visit Reporton Cardiology Visit Report Normal [facility] Bilirubin Test strip Ql (U)O rdered By: Akbar Archuleta on 03-24-2024 Bilirubin Ql (U) Negative Negative [facility] Glucose Ql (U)Ordered By: Heidi Archuleta on 03-24-2024 Urine Glucose (UA) Normal mg/dl Normal [facility] Ketones Test strip Ql (U)Ord ered By: Akbar Archuleta on 03-24-2024 Ketones Ql (U) Negative Negative [facility] Nitrite Test strip Ql (U)Ord ered By: Akbar Archuleta on 03-24-2024 Nitrite Ql (U) Negative Negative [facility] Protein Test strip Ql (U)Ord ered By: Akbar Archuleta on 03-24-2024 Protein Ql (U) Negative Negative [facility] Urinalysis, Routine (Dipstic k)on 03-24-2024 BILIRUBIN URINE Negative Normal Negative [facility] Comment on above: Order Comment: Urine , Random Performed By: #### L 400.2010 ####[facility] [address] [place], [address] Clarity (U) Clear Normal Clear [facility] Comment on above: Order Comment: Urine , Random Performed By: #### L 400.2010 ####[facility] [address] [place], [address] Color (U) Yellow Normal Yellow [facility] Comment on above: Order Comment: Urine , Random Performed By: #### L 400.2010 ####[facility] [address] [place], [address] GLUCOSE, UR Normal Normal Normal [facility] Comment on above: Order Comment: Urine , Random Performed By: #### L 400.2010 ####[facility] [address] [place], [address] KETONE UR Negative Normal Negative [facility] Comment on above: Order Comment: Urine , Random Performed By: #### L 400.2010 ####[facility] [address] [place], [address] LEUK ESTERASE Negative Normal Negative [facility] Comment on above: Order Comment: Urine , Random Performed By: #### L 400.2010 ####[facility] [address] [place], [address] Nitrite Ql (U) Negative Normal Negative [facility] Comment on above: Order Comment: Urine , Random Performed By: #### L 400.2010 ####[facility] [address] [place], [address] OCCULT BLOOD-UR Negative Normal Negative [facility] Comment on above: Order Comment: Urine , Random Performed By: #### L 400.2010 ####[facility] [address] [place], [address] pH UR 5.0 Normal 5.0 - 8.0 [facility] Comment on above: Order Comment: Urine , Random Performed By: #### L 400.2010 ####[facility] [address] [place], [address] PROT DIPSTX Negative Normal Negative [facility] Comment on above: Order Comment: Urine , Random Performed By: #### L 400.2010 ####[facility] [address] [place], [address] SP.GR. DIPSTX 1.025 Normal 1.002-1.030 [facility] Comment on above: Order Comment: Urine , Random Performed By: #### L 400.2010 ####[facility] [address] [place], [address] UROBILI Normal Normal Normal [facility] Comment on above: Order Comment: Urine , Random Performed By: #### L 400.2010 ####[facility] [address] [place], [address] Urine blood detectionOrdered By: Akbar Archuleta on 03-24-2024 Urine Occult Blood Negative Negative [facility] Urine clarityOrdered By: Jeremias Archuleta on 03-24-2024 Clarity (U) Clear Clear [facility] Urine color determinationOrd ered By: Akbar Archuleta on 03-24-2024 Color (U) Yellow Yellow [facility] Urine glucose detectionOrder ed By: Akbar Archuleta on 03-24-2024 Glucose Ql (U) Normal mg/dl Normal [facility] Urine leukocyte esterase det ection by dipstickOrdered By: Akbar Archuleta on 03-24-2024 Leukocyte esterase Test strip Ql (U) Negative Negative [facility] Urine pHOrdered By: Akbar aggarwal on 03-24-2024 pH (U) 5.0 [pH] 5.0 - 8.0 [facility] Urine specific gravity measu rementOrdered By: Akbar Archuleta on 03-24-2024 Specific gravity (U) [Rel density] 1.025 1.002-1.030 [facility] Urine urobilinogen measureme ntOrdered By: Akbar Whartonano on 03-24-2024 Urobilinogen Ql (U) Normal mg/dl Normal [facility] Urobilinogen Ql (U)Ordered B y: Akbar Archuleta on 03-24-2024 Urine Urobilinogen Normal mg/dl Normal [facility] Neurology Visit Reporton Neurology Visit Report Normal [facility] Respiratory Cultureon 2024 RESPC Normal [facility] Comment on above: Performed By: #### M 100.1999, M100.2400 ####[facility] [address] [place], [place], [address] Gram Stainon 03-09-2024 GS Acceptable Specimen? Yes (<25 Epithelial cells per/lpf) Gram Stain 3+ White Blood Cells 1+ Gram positive cocci 1+ Gram negative diplococci No Epithelial cells 1+ Gram positive rods Normal [facility] Comment on above: Performed By: #### M 100.1999, M100.2400 ####[facility] [address] [place], [address] Chest PA and Lateralon 03-08 Chest PA and Lateral Normal [facility] Emergency Department Summary on 03-08-2024 Emergency Department Summary Normal [facility] Gram stainOrdered By: Brigitte Randall on 03-08-2024 Microscopic observation Gram stain Nom (Unsp spec) [facility] Microscopic observation Gram stain Nom (Unsp spec) [facility] Influenza virus A and B and SARS-CoV-2 (COVID-19) and Respiratory syncytial virus RNAOrdered By: Ramos Randall on 03-08-2024 SARS-CoV-2 (COVID-19) RNA YOLY+probe Ql (Unsp spec) Influenzae A Abnormal [facility] SARS-CoV-2 (COVID-19) RNA YOLY+probe Ql (Unsp spec) Influenzae A Abnormal [facility] M100.678on 03-08-2024 M100.678 Normal [facility] Comment on above: Performed By: #### M 100.678 ####[facility] [address] [facility] [address] Microbial respiratory cultur eOrdered By: Ramos Randall on 03-08-2024 Microorganism identified Cx Nom (Unsp spec) Stenotrophomonas maltophilia Abnormal [facility] Microorganism identified Cx Nom (Unsp spec) Moraxella Catarrhalis Abnormal [facility] Microorganism identified Cx Nom (Unsp spec) Streptococcus pneumoniae Abnormal [facility] Microorganism identified Cx Nom (Unsp spec)Ordered By: Ramos Randall on 03-08-2024 Respiratory Culture Stenotrophomonas maltophilia Abnormal [facility] Respiratory Culture Moraxella Catarrhalis Abnormal [facility] Respiratory Culture Streptococcus pneumoniae Abnormal [facility] Office Visit Reporton 2023 Office Visit Report Normal [facility] Office Visit Reporton 2023 Office Visit Report Normal [facility] Office Visit Reporton 2023 Office Visit Report Normal [facility] Neurology Visit Reporton Neurology Visit Report Normal [facility] Respiratory Cultureon 2023 RESPC Mixed normal respira tory bobbi. No Haemophilus, Streptococcus pneumoniae, beta-hemolytic Streptococcus or Staphylococcus aureus isolated. Normal [facility] Comment on above: Performed By: #### M 100.2400, M100.2000 ####[facility] [address] [facility] [address] Discharge Instructionon 10-19 Discharge Instruction Normal [facility] Basic Metabolic Profile (BMP )on 11-01-2023 BUN/CRE 19.7 RATIO Normal 10-20 [facility] Comment on above: Performed By: #### L 100.0500, L500.2500 ####[facility] [address] [facility] [address] CA,Total 8.5 mg/dL Normal 8.5-10.1 [facility] Comment on above: Performed By: #### L 100.0500, L500.2500 ####[facility] [address] [place], [address] Chloride [Moles/Vol] 107 mmol/L Normal 98-107 [facility] Comment on above: Performed By: #### L 100.0500, L500.2500 ####[facility] [address] [place], [address] CO2 [Moles/Vol] 27.0 mmol/L Normal 21.0-32.0 [facility] Comment on above: Performed By: #### L 100.0500, L500.2500 ####[facility] [address] [place], [address] Creatinine [Mass/Vol] 0.81 mg/dL Normal 0.70-1.30 [facility] Comment on above: Result Comment: The validity of the calculated GFR GFRAA in patients over70 years has not been determined. Clinical correlation isessential. Performed By: #### L 100.0500, L500.2500 ####[facility] [address] [place], [address] ECRCL 100.33 ml/min Normal [facility] Comment on above: Performed By: #### L 100.0500, L500.2500 ####[facility] [address] [place], [address] EST GFR - AA 123 mL/min Normal >60 [facility] Comment on above: Result Comment: Afri can Tanzanian GFR Calc Performed By: #### L 100.0500, L500.2500 ####[facility] [address] [place], [address] GAP 6 Normal 5-15 [facility] Comment on above: Performed By: #### L 100.0500, L500.2500 ####[facility] [address] [place], [address] GFR/1.73 sq M.predicted among non-blacks MDRD (S/P/Bld) [Vol rate/Area] 101 mL/min/{1.73_m2} Normal >60 [facility] Comment on above: Result Comment: Non- GFR Calc Performed By: #### L 100.0500, L500.2500 ####[facility] [address] [place], [address] Glucose [Mass/Vol] 100 mg/dL Normal 74-106 [facility] Comment on above: Result Comment: Fast ing Glucose result from 100 to 125 mg/dLsuggests IMPAIRED HOMEOSTASIS per A.D.A. criteria. Performed By: #### L 100.0500, L500.2500 ####[facility] [address] [place], [address] Potassium [Moles/Vol] 3.9 mmol/L Normal 3.5-5.1 [facility] Comment on above: Performed By: #### L 100.0500, L500.2500 ####[facility] [address] [place], [address] Sodium [Moles/Vol] 140 mmol/L Normal 136-145 [facility] Comment on above: Performed By: #### L 100.0500, L500.2500 ####[facility] [address] [place], [address] Urea nitrogen [Mass/Vol] 16 mg/dL Normal 7-18 [facility] Comment on above: Performed By: #### L 100.0500, L500.2500 ####[facility] [address] [place], [address] CBC-Complete Blood Cnt No Di ffon 11-01-2023 Erythrocyte distribution width (RBC) [Ratio] 14.1 % Normal 11.6-14.6 [facility] Comment on above: Performed By: #### L 100.0500, L500.2500 ####[facility] [address] [place], [address] Hematocrit (Bld) [Volume fraction] 42.9 % Normal 40-54 [facility] Comment on above: Performed By: #### L 100.0500, L500.2500 ####[facility] [address] [place], [address] Hemoglobin (Bld) [Mass/Vol] 13.8 g/dL Normal 13.0-16.5 [facility] Comment on above: Performed By: #### L 100.0500, L500.2500 ####[facility] [address] [place], [address] MCH (RBC) [Entitic mass] 30.5 pg Normal 27.0-32.0 [facility] Comment on above: Performed By: #### L 100.0500, L500.2500 ####[facility] [address] [place], [address] MCHC (RBC) [Mass/Vol] 32.2 g/dL Normal 32-36 [facility] Comment on above: Performed By: #### L 100.0500, L500.2500 ####[facility] [address] [place], [address] MCV (RBC) [Entitic vol] 94.9 fL High 80-94 [facility] Comment on above: Performed By: #### L 100.0500, L500.2500 ####[facility] [address] [place], [address] Platelet mean volume (Bld) [Entitic vol] 11.6 fL Normal 6.2-12.0 [facility] Comment on above: Performed By: #### L 100.0500, L500.2500 ####[facility] [address] [place], [address] Platelets (Bld) [#/Vol] 196 10*3/uL Normal 150-450 [facility] Comment on above: Performed By: #### L 100.0500, L500.2500 ####[facility] [address] [place], [address] RBC (Bld) [#/Vol] 4.52 10*6/uL Low 4.6-6.2 [facility] Comment on above: Performed By: #### L 100.0500, L500.2500 ####[facility] [address] [place], [address] RDW SD 49.2 fl High 35.1-43.9 [facility] Comment on above: Performed By: #### L 100.0500, L500.2500 ####[facility] [address] [place], [address] WBC (Bld) [#/Vol] 8.2 10*3/uL Normal 4.4-11.0 [facility] Comment on above: Performed By: #### L 100.0500, L500.2500 ####[facility] [address] [place], [address] Basic Metabolic Profile (BMP )on 10-31-2023 BUN/CRE 19.1 RATIO Normal 10-20 [facility] Comment on above: Performed By: #### L 501.2300, L500.2500, L501.5200 ####[facility] [address] [place], [address] CA,Total 8.5 mg/dL Normal 8.5-10.1 [facility] Comment on above: Performed By: #### L 501.2300, L500.2500, L501.5200 ####[facility] [address] [place], [address] Chloride [Moles/Vol] 106 mmol/L Normal 98-107 [facility] Comment on above: Performed By: #### L 501.2300, L500.2500, L501.5200 ####[facility] [address] [place], [address] CO2 [Moles/Vol] 28.0 mmol/L Normal 21.0-32.0 [facility] Comment on above: Performed By: #### L 501.2300, L500.2500, L501.5200 ####[facility] [address] [place], [address] Creatinine [Mass/Vol] 0.78 mg/dL Normal 0.70-1.30 [facility] Comment on above: Result Comment: The validity of the calculated GFR GFRAA in patients over70 years has not been determined. Clinical correlation isessential. Performed By: #### L 501.2300, L500.2500, L501.5200 ####[facility] [address] [place], [address] ECRCL 100.81 ml/min Normal [facility] Comment on above: Performed By: #### L 501.2300, L500.2500, L501.5200 ####[facility] [address] [place], [address] EST GFR - AA 128 mL/min Normal >60 [facility] Comment on above: Result Comment: Afri can Tanzanian GFR Calc Performed By: #### L 501.2300, L500.2500, L501.5200 ####[facility] [address] [place], [address] GAP 3 Low 5-15 [facility] Comment on above: Performed By: #### L 501.2300, L500.2500, L501.5200 ####[facility] [address] [place], [address] GFR/1.73 sq M.predicted among non-blacks MDRD (S/P/Bld) [Vol rate/Area] 105 mL/min/{1.73_m2} Normal >60 [facility] Comment on above: Result Comment: Non- GFR Calc Performed By: #### L 501.2300, L500.2500, L501.5200 ####[facility] [address] [place], [address] Glucose [Mass/Vol] 116 mg/dL High 74-106 [facility] Comment on above: Result Comment: Fast ing Glucose result from 100 to 125 mg/dLsuggests IMPAIRED HOMEOSTASIS per A.D.A. criteria. Performed By: #### L 501.2300, L500.2500, L501.5200 ####[facility] [address] [place], [address] Potassium [Moles/Vol] 4.0 mmol/L Normal 3.5-5.1 [facility] Comment on above: Performed By: #### L 501.2300, L500.2500, L501.5200 ####[facility] [address] [place], [address] Sodium [Moles/Vol] 137 mmol/L Normal 136-145 [facility] Comment on above: Performed By: #### L 501.2300, L500.2500, L501.5200 ####[facility] [address] [place], [address] Urea nitrogen [Mass/Vol] 15 mg/dL Normal 7-18 [facility] Comment on above: Performed By: #### L 501.2300, L500.2500, L501.5200 ####[facility] [address] [place], [address] CBC W/Diff, Automatedon -02 19-2023 Absolute Lymph 1.25 X10 3/uL Normal 0.83-4.51 [facility] Comment on above: Performed By: #### L 100.0100 ####[facility] [address] [place], [address] Absolute Neut 7.7 X10 3/uL Normal 2.0-7.7 [facility] Comment on above: Performed By: #### L 100.0100 ####[facility] [address] [place], [address] Basophils/100 WBC (Bld) 0.2 % Normal 0-1 [facility] Comment on above: Performed By: #### L 100.0100 ####[facility] [address] [place], [address] Eosinophils/100 WBC (Bld) 0.9 % Normal 0-5 [facility] Comment on above: Performed By: #### L 100.0100 ####[facility] [address] [place], [address] Erythrocyte distribution width (RBC) [Ratio] 13.8 % Normal 11.6-14.6 [facility] Comment on above: Performed By: #### L 100.0100 ####[facility] [address] [place], [address] Hematocrit (Bld) [Volume fraction] 41.9 % Normal 40-54 [facility] Comment on above: Performed By: #### L 100.0100 ####[facility] [address] [place], [address] Hemoglobin (Bld) [Mass/Vol] 13.5 g/dL Normal 13.0-16.5 [facility] Comment on above: Performed By: #### L 100.0100 ####[facility] [address] [place], [address] IG% 0.700 Normal 0.0-0.9 [facility] Comment on above: Result Comment: IG% - Immature Granulocytes (promyelocytes, myelocytes andmetamyelocytes) > 1% indicates that a LEFT SHIFT is Present. Performed By: #### L 100.0100 ####[facility] [address] [place], [address] Lymphocytes/100 WBC (Bld) 12.8 % Low 19-41 [facility] Comment on above: Performed By: #### L 100.0100 ####[facility] [address] [place], [address] MCH (RBC) [Entitic mass] 30.7 pg Normal 27.0-32.0 [facility] Comment on above: Performed By: #### L 100.0100 ####[facility] [address] [place], [address] MCHC (RBC) [Mass/Vol] 32.2 g/dL Normal 32-36 [facility] Comment on above: Performed By: #### L 100.0100 ####[facility] [address] [place], [address] MCV (RBC) [Entitic vol] 95.2 fL High 80-94 [facility] Comment on above: Performed By: #### L 100.0100 ####[facility] [address] [place], [address] Monocytes/100 WBC (Bld) 6.7 % Normal 0-10 [facility] Comment on above: Performed By: #### L 100.0100 ####[facility] [address] [place], [address] Neutrophils/100 WBC (Bld) 78.7 % High 47-70 [facility] Comment on above: Performed By: #### L 100.0100 ####[facility] [address] [place], [address] Nucleated RBC (Bld) [#/Vol] 0 10*3/uL Normal 0-5 [facility] Comment on above: Performed By: #### L 100.0100 ####[facility] [address] [place], [address] Platelet mean volume (Bld) [Entitic vol] 11.0 fL Normal 6.2-12.0 [facility] Comment on above: Performed By: #### L 100.0100 ####[facility] [address] [place], [address] Platelets (Bld) [#/Vol] 198 10*3/uL Normal 150-450 [facility] Comment on above: Performed By: #### L 100.0100 ####[facility] [address] [place], [address] RBC (Bld) [#/Vol] 4.40 10*6/uL Low 4.6-6.2 [facility] Comment on above: Performed By: #### L 100.0100 ####[facility] [address] [place], [address] RDW SD 48.5 fl High 35.1-43.9 [facility] Comment on above: Performed By: #### L 100.0100 ####[facility] [address] [place], [address] WBC (Bld) [#/Vol] 9.7 10*3/uL Normal 4.4-11.0 [facility] Comment on above: Performed By: #### L 100.0100 ####[facility] [address] [place], [address] Magnesiumon 10-31-2023 Magnesium [Mass/Vol] 2.3 mg/dL Normal 1.6-2.6 [facility] Comment on above: Performed By: #### L 501.2300, L500.2500, L501.5200 ####[facility] [address] [place], [address] Phosphoruson 10-31-2023 Phosphate [Mass/Vol] 3.2 mg/dL Normal 2.5-4.9 [facility] Comment on above: Performed By: #### L 501.2300, L500.2500, L501.5200 ####[facility] [address] [place], [address] CBC W/Diff, Automatedon 10-19 Absolute Lymph 1.07 X10 3/uL Normal 0.83-4.51 [facility] Comment on above: Performed By: #### L 501.9520, L500.4050, L501.2300, L501.5200, L100.0100 ####[facility] [address] [place], [address] Absolute Neut 6.3 X10 3/uL Normal 2.0-7.7 [facility] Comment on above: Performed By: #### L 501.9520, L500.4050, L501.2300, L501.5200, L100.0100 ####[facility] [address] [place], [address] Basophils/100 WBC (Bld) 0.1 % Normal 0-1 [facility] Comment on above: Performed By: #### L 501.9520, L500.4050, L501.2300, L501.5200, L100.0100 ####[facility] [address] [place], [address] Eosinophils/100 WBC (Bld) 0.8 % Normal 0-5 [facility] Comment on above: Performed By: #### L 501.9520, L500.4050, L501.2300, L501.5200, L100.0100 ####[facility] [address] [place], [address] Erythrocyte distribution width (RBC) [Ratio] 13.8 % Normal 11.6-14.6 [facility] Comment on above: Performed By: #### L 501.9520, L500.4050, L501.2300, L501.5200, L100.0100 ####[facility] [address] [place], [address] Hematocrit (Bld) [Volume fraction] 40.8 % Normal 40-54 [facility] Comment on above: Performed By: #### L 501.9520, L500.4050, L501.2300, L501.5200, L100.0100 ####[facility] [address] [place], [address] Hemoglobin (Bld) [Mass/Vol] 13.2 g/dL Normal 13.0-16.5 [facility] Comment on above: Performed By: #### L 501.9520, L500.4050, L501.2300, L501.5200, L100.0100 ####[facility] [address] [place], [address] IG% 0.900 Normal 0.0-0.9 [facility] Comment on above: Result Comment: IG% - Immature Granulocytes (promyelocytes, myelocytes andmetamyelocytes) > 1% indicates that a LEFT SHIFT is Present. Performed By: #### L 501.9520, L500.4050, L501.2300, L501.5200, L100.0100 ####[facility] [address] [place], [address] Lymphocytes/100 WBC (Bld) 13.5 % Low 19-41 [facility] Comment on above: Performed By: #### L 501.9520, L500.4050, L501.2300, L501.5200, L100.0100 ####[facility] [address] [place], [address] MCH (RBC) [Entitic mass] 30.6 pg Normal 27.0-32.0 [facility] Comment on above: Performed By: #### L 501.9520, L500.4050, L501.2300, L501.5200, L100.0100 ####[facility] [address] [place], [address] MCHC (RBC) [Mass/Vol] 32.4 g/dL Normal 32-36 [facility] Comment on above: Performed By: #### L 501.9520, L500.4050, L501.2300, L501.5200, L100.0100 ####[facility] [address] [place], [address] MCV (RBC) [Entitic vol] 94.4 fL High 80-94 [facility] Comment on above: Performed By: #### L 501.9520, L500.4050, L501.2300, L501.5200, L100.0100 ####[facility] [address] [place], [address] Monocytes/100 WBC (Bld) 5.9 % Normal 0-10 [facility] Comment on above: Performed By: #### L 501.9520, L500.4050, L501.2300, L501.5200, L100.0100 ####[facility] [address] [place], [address] Neutrophils/100 WBC (Bld) 78.8 % High 47-70 [facility] Comment on above: Performed By: #### L 501.9520, L500.4050, L501.2300, L501.5200, L100.0100 ####[facility] [address] [place], [address] Nucleated RBC (Bld) [#/Vol] 0 10*3/uL Normal 0-5 [facility] Comment on above: Performed By: #### L 501.9520, L500.4050, L501.2300, L501.5200, L100.0100 ####[facility] [address] [place], [address] Platelet mean volume (Bld) [Entitic vol] 10.8 fL Normal 6.2-12.0 [facility] Comment on above: Performed By: #### L 501.9520, L500.4050, L501.2300, L501.5200, L100.0100 ####[facility] [address] [place], [address] Platelets (Bld) [#/Vol] 210 10*3/uL Normal 150-450 [facility] Comment on above: Performed By: #### L 501.9520, L500.4050, L501.2300, L501.5200, L100.0100 ####[facility] [address] [place], [address] RBC (Bld) [#/Vol] 4.32 10*6/uL Low 4.6-6.2 [facility] Comment on above: Performed By: #### L 501.9520, L500.4050, L501.2300, L501.5200, L100.0100 ####[facility] [address] [place], [address] RDW SD 47.9 fl High 35.1-43.9 [facility] Comment on above: Performed By: #### L 501.9520, L500.4050, L501.2300, L501.5200, L100.0100 ####[facility] [address] [place], [address] WBC (Bld) [#/Vol] 8.0 10*3/uL Normal 4.4-11.0 [facility] Comment on above: Performed By: #### L 501.9520, L500.4050, L501.2300, L501.5200, L100.0100 ####[facility] [address] [place], [address] Comprehensive Metabolic Prof scon 10-30-2023 Albumin [Mass/Vol] 2.8 g/dL Low 3.2-5.0 [facility] Comment on above: Performed By: #### L 501.9520, L500.4050, L501.2300, L501.5200, L100.0100 ####[facility] [address] [place], [address] Albumin/Globulin [Mass ratio] 1.0 {ratio} Normal 0.9-2.4 [facility] Comment on above: Performed By: #### L 501.9520, L500.4050, L501.2300, L501.5200, L100.0100 ####[facility] [address] [place], [address] ALK P 58 U/L Normal 45-117 [facility] Comment on above: Performed By: #### L 501.9520, L500.4050, L501.2300, L501.5200, L100.0100 ####[facility] [address] [place], [address] ALT [Catalytic activity/Vol] 12 U/L Low 16-61 [facility] Comment on above: Performed By: #### L 501.9520, L500.4050, L501.2300, L501.5200, L100.0100 ####[facility] [address] [place], [address] AST [Catalytic activity/Vol] 11 U/L Low 15-37 [facility] Comment on above: Performed By: #### L 501.9520, L500.4050, L501.2300, L501.5200, L100.0100 ####[facility] [address] [place], [address] Bilirubin [Mass/Vol] 1.00 mg/dL Normal 0.20-1.00 [facility] Comment on above: Result Comment: For patients on eltrombopag therapy, use of Dimension [place] TBIL is not recommended. Performed By: #### L 501.9520, L500.4050, L501.2300, L501.5200, L100.0100 ####[facility] [address] [place], [address] BUN/CRE 25.1 RATIO High 10-20 [facility] Comment on above: Performed By: #### L 501.9520, L500.4050, L501.2300, L501.5200, L100.0100 ####[facility] [address] [place], [address] CA,Total 8.3 mg/dL Low 8.5-10.1 [facility] Comment on above: Performed By: #### L 501.9520, L500.4050, L501.2300, L501.5200, L100.0100 ####[facility] [address] [place], [address] Chloride [Moles/Vol] 106 mmol/L Normal 98-107 [facility] Comment on above: Performed By: #### L 501.9520, L500.4050, L501.2300, L501.5200, L100.0100 ####[facility] [address] [place], [address] CO2 [Moles/Vol] 26.0 mmol/L Normal 21.0-32.0 [facility] Comment on above: Performed By: #### L 501.9520, L500.4050, L501.2300, L501.5200, L100.0100 ####[facility] [address] [place], [address] Creatinine [Mass/Vol] 0.84 mg/dL Normal 0.70-1.30 [facility] Comment on above: Result Comment: The validity of the calculated GFR GFRAA in patients over70 years has not been determined. Clinical correlation isessential. Performed By: #### L 501.9520, L500.4050, L501.2300, L501.5200, L100.0100 ####[facility] [address] [place], [address] ECRCL 87.67 ml/min Normal [facility] Comment on above: Performed By: #### L 501.9520, L500.4050, L501.2300, L501.5200, L100.0100 ####[facility] [address] [place], [address] EST GFR - AA 118 mL/min Normal >60 [facility] Comment on above: Result Comment: Afri can Tanzanian GFR Calc Performed By: #### L 501.9520, L500.4050, L501.2300, L501.5200, L100.0100 ####[facility] [address] [place], [address] GAP 5 Normal 5-15 [facility] Comment on above: Performed By: #### L 501.9520, L500.4050, L501.2300, L501.5200, L100.0100 ####[facility] [address] [place], [address] GFR/1.73 sq M.predicted among non-blacks MDRD (S/P/Bld) [Vol rate/Area] 98 mL/min/{1.73_m2} Normal >60 [facility] Comment on above: Result Comment: Non- GFR Calc Performed By: #### L 501.9520, L500.4050, L501.2300, L501.5200, L100.0100 ####[facility] [address] [place], [address] Globulin (S) [Mass/Vol] 2.9 g/dL Normal 2.2-4.2 [facility] Comment on above: Performed By: #### L 501.9520, L500.4050, L501.2300, L501.5200, L100.0100 ####[facility] [address] [place], [address] Glucose [Mass/Vol] 106 mg/dL Normal 74-106 [facility] Comment on above: Result Comment: Fast ing Glucose result from 100 to 125 mg/dLsuggests IMPAIRED HOMEOSTASIS per A.D.A. criteria. Performed By: #### L 501.9520, L500.4050, L501.2300, L501.5200, L100.0100 ####[facility] [address] [place], [address] Potassium [Moles/Vol] 4.1 mmol/L Normal 3.5-5.1 [facility] Comment on above: Performed By: #### L 501.9520, L500.4050, L501.2300, L501.5200, L100.0100 ####[facility] [address] [place], [address] Sodium [Moles/Vol] 137 mmol/L Normal 136-145 [facility] Comment on above: Performed By: #### L 501.9520, L500.4050, L501.2300, L501.5200, L100.0100 ####[facility] [address] [place], [address] T PROT 5.7 g/dL Low 6.4-8.2 [facility] Comment on above: Performed By: #### L 501.9520, L500.4050, L501.2300, L501.5200, L100.0100 ####[facility] [address] [place], [address] Urea nitrogen [Mass/Vol] 21 mg/dL High 7-18 [facility] Comment on above: Performed By: #### L 501.9520, L500.4050, L501.2300, L501.5200, L100.0100 ####[facility] [address] [place], [address] Magnesiumon 10-30-2023 Magnesium [Mass/Vol] 2.2 mg/dL Normal 1.6-2.6 [facility] Comment on above: Performed By: #### L 501.9520, L500.4050, L501.2300, L501.5200, L100.0100 ####[facility] [address] [place], [address] Phosphoruson 10-30-2023 Phosphate [Mass/Vol] 3.9 mg/dL Normal 2.5-4.9 [facility] Comment on above: Performed By: #### L 501.9520, L500.4050, L501.2300, L501.5200, L100.0100 ####[facility] [address], [address] Thyroid Stim Hormone (TSH)on 10-30-2023 TSH 1.300 uIU/mL Normal 0.358-3.740 [facility] Comment on above: Performed By: #### L 501.9520, L500.4050, L501.2300, L501.5200, L100.0100 ####[facility] [address] [place], [address] Basic Metabolic Profile (BMP )on 10-29-2023 BUN/CRE 26.7 RATIO High 10-20 [facility] Comment on above: Performed By: #### L 500.2500, L100.0100 ####[facility] [address] [place], [address] CA,Total 8.7 mg/dL Normal 8.5-10.1 [facility] Comment on above: Performed By: #### L 500.2500, L100.0100 ####[facility] [address] [place], [address] Chloride [Moles/Vol] 103 mmol/L Normal 98-107 [facility] Comment on above: Performed By: #### L 500.2500, L100.0100 ####[facility] [address] [place], [address] CO2 [Moles/Vol] 31.0 mmol/L Normal 21.0-32.0 [facility] Comment on above: Performed By: #### L 500.2500, L100.0100 ####[facility] [address] [place], [address] Creatinine [Mass/Vol] 1.16 mg/dL Normal 0.70-1.30 [facility] Comment on above: Result Comment: The validity of the calculated GFR GFRAA in patients over70 years has not been determined. Clinical correlation isessential. Performed By: #### L 500.2500, L100.0100 ####[facility] [address] [place], [address] EST GFR - AA 81 mL/min Normal >60 [facility] Comment on above: Result Comment: Afri can Tanzanian GFR Calc Performed By: #### L 500.2500, L100.0100 ####[facility] [address] [place], [address] GAP 5 Normal 5-15 [facility] Comment on above: Performed By: #### L 500.2500, L100.0100 ####[facility] [address] [place], [address] GFR/1.73 sq M.predicted among non-blacks MDRD (S/P/Bld) [Vol rate/Area] 67 mL/min/{1.73_m2} Normal >60 [facility] Comment on above: Result Comment: Non- GFR Calc Performed By: #### L 500.2500, L100.0100 ####[facility] [address] [place], [address] Glucose [Mass/Vol] 112 mg/dL High 74-106 [facility] Comment on above: Result Comment: Fast ing Glucose result from 100 to 125 mg/dLsuggests IMPAIRED HOMEOSTASIS per A.D.A. criteria. Performed By: #### L 500.2500, L100.0100 ####[facility] [address] [place], [address] Potassium [Moles/Vol] 3.9 mmol/L Normal 3.5-5.1 [facility] Comment on above: Performed By: #### L 500.2500, L100.0100 ####[facility] [address] [place], [address] Sodium [Moles/Vol] 139 mmol/L Normal 136-145 [facility] Comment on above: Performed By: #### L 500.2500, L100.0100 ####[facility] [address], [address] Urea nitrogen [Mass/Vol] 31 mg/dL High 7-18 [facility] Comment on above: Performed By: #### L 500.2500, L100.0100 ####[facility] [address] [place], [address] CBC W/Diff, Automatedon 09- 0-2023 Absolute Lymph 2.07 X10 3/uL Normal 0.83-4.51 [facility] Comment on above: Performed By: #### L 500.2500, L100.0100 ####[facility] [address] [place], [address] Absolute Neut 6.8 X10 3/uL Normal 2.0-7.7 [facility] Comment on above: Performed By: #### L 500.2500, L100.0100 ####[facility] [address] [place], [address] Basophils/100 WBC (Bld) 0.3 % Normal 0-1 [facility] Comment on above: Performed By: #### L 500.2500, L100.0100 ####[facility] [address] [place], [address] Eosinophils/100 WBC (Bld) 1.5 % Normal 0-5 [facility] Comment on above: Performed By: #### L 500.2500, L100.0100 ####[facility] [address] [place], [address] Erythrocyte distribution width (RBC) [Ratio] 13.7 % Normal 11.6-14.6 [facility] Comment on above: Performed By: #### L 500.2500, L100.0100 ####[facility] [address] [place], [address] Hematocrit (Bld) [Volume fraction] 43.9 % Normal 40-54 [facility] Comment on above: Performed By: #### L 500.2500, L100.0100 ####[facility] [address] [place], [address] Hemoglobin (Bld) [Mass/Vol] 14.2 g/dL Normal 13.0-16.5 [facility] Comment on above: Performed By: #### L 500.2500, L100.0100 ####[facility] [address] [place], [address] IG% 0.700 Normal 0.0-0.9 [facility] Comment on above: Result Comment: IG% - Immature Granulocytes (promyelocytes, myelocytes andmetamyelocytes) > 1% indicates that a LEFT SHIFT is Present. Performed By: #### L 500.2500, L100.0100 ####[facility] [address] [place], [address] Lymphocytes/100 WBC (Bld) 20.7 % Normal 19-41 [facility] Comment on above: Performed By: #### L 500.2500, L100.0100 ####[facility] [address] [place], [address] MCH (RBC) [Entitic mass] 30.4 pg Normal 27.0-32.0 [facility] Comment on above: Performed By: #### L 500.2500, L100.0100 ####[facility] [address] [place], [address] MCHC (RBC) [Mass/Vol] 32.3 g/dL Normal 32-36 [facility] Comment on above: Performed By: #### L 500.2500, L100.0100 ####[facility] [address] [place], [address] MCV (RBC) [Entitic vol] 94.0 fL Normal 80-94 [facility] Comment on above: Performed By: #### L 500.2500, L100.0100 ####[facility] [address] [place], [address] Monocytes/100 WBC (Bld) 9.0 % Normal 0-10 [facility] Comment on above: Performed By: #### L 500.2500, L100.0100 ####[facility] [address] [place], [address] Neutrophils/100 WBC (Bld) 67.8 % Normal 47-70 [facility] Comment on above: Performed By: #### L 500.2500, L100.0100 ####[facility] [address] [place], [address] Nucleated RBC (Bld) [#/Vol] 0 10*3/uL Normal 0-5 [facility] Comment on above: Performed By: #### L 500.2500, L100.0100 ####[facility] [address] [place], [address] Platelet mean volume (Bld) [Entitic vol] 11.2 fL Normal 6.2-12.0 [facility] Comment on above: Performed By: #### L 500.2500, L100.0100 ####[facility] [address] [place], [address] Platelets (Bld) [#/Vol] 211 10*3/uL Normal 150-450 [facility] Comment on above: Performed By: #### L 500.2500, L100.0100 ####[facility] [address] [place], [address] RBC (Bld) [#/Vol] 4.67 10*6/uL Normal 4.6-6.2 [facility] Comment on above: Performed By: #### L 500.2500, L100.0100 ####[facility] [address] [place], [address] RDW SD 47.4 fl High 35.1-43.9 [facility] Comment on above: Performed By: #### L 500.2500, L100.0100 ####[facility] [address] [place], [address] WBC (Bld) [#/Vol] 10.0 10*3/uL Normal 4.4-11.0 [facility] Comment on above: Performed By: #### L 500.2500, L100.0100 ####[facility] [address] [place], [address] CORTISOL SERUMon 10-29-2023 CORTISOL 5.00 ug/dL Normal 3.44-22.45 [facility] Comment on above: Result Comment: Adul t (AM) 5.27 - 22.45 ug/dL Adult (PM) 3.44 - 16.76 ug/dL Performed By: #### L 509.6000 ####[facility] [address] [place], [address] Chest PA and Lateralon 10-28 Chest PA and Lateral Normal [facility] Emergency Department Summary on 10-29-2023 Emergency Department Summary Normal [facility] H AND P Exam - Hospitaliston 10-29-2023 H&P Exam - Hospitalist Normal [facility] Lactic Acidon 10-29-2023 Lactate [Moles/Vol] 1.8 mmol/L Normal 0.4-1.9 [facility] Comment on above: Order Comment: Y Performed By: #### L 503.6005 ####[facility] [address] [place], [address] Urine Cultureon 10-29-2023 URC Culture exhibits no growth. Normal [facility] Comment on above: Performed By: #### M 100.2200, L400.0001 ####[facility] [address] [place], [address] Emergency Department Summary on 10-28-2023 Emergency Department Summary Normal [facility] Kidney and Bladderon 024 Kidney and Bladder Normal [facility] Urinalysis, Completeon 10-27 BILIRUBIN URINE Negative Normal Negative [facility] Comment on above: Order Comment: COLLE CTOR TO SPECIFY Performed By: #### M 100.2200, L400.0001 ####[facility] [address] [place], [address] Clarity (U) Clear Normal Clear [facility] Comment on above: Order Comment: COLLE CTOR TO SPECIFY Performed By: #### M 100.2200, L400.0001 ####[facility] [address] [place], [address] Color (U) Yellow Normal Yellow [facility] Comment on above: Order Comment: COLLE CTOR TO SPECIFY Performed By: #### M 100.2200, L400.0001 ####[facility] [address] [place], [address] GLUCOSE, UR Normal Normal Normal [facility] Comment on above: Order Comment: COLLE CTOR TO SPECIFY Performed By: #### M 100.2200, L400.0001 ####[facility] [address] [place], [address] KETONE UR Negative Normal Negative [facility] Comment on above: Order Comment: COLLE CTOR TO SPECIFY Performed By: #### M 100.2200, L400.0001 ####[facility] [address] [place], [address] LEUK ESTERASE Negative Normal Negative [facility] Comment on above: Order Comment: COLLE CTOR TO SPECIFY Performed By: #### M 100.2200, L400.0001 ####[facility] [address] [place], [address] Nitrite Ql (U) Negative Normal Negative [facility] Comment on above: Order Comment: COLLE CTOR TO SPECIFY Performed By: #### M 100.2200, L400.0001 ####[facility] [address] [place], [address] OCCULT BLOOD-UR Negative Normal Negative [facility] Comment on above: Order Comment: [facility] CTOR TO SPECIFY Performed By: #### M 100.2200, L400.0001 ####[facility] [address] [place], [address] pH UR 6.0 Normal 5.0 - 8.0 [facility] Comment on above: Order Comment: COLLE CTOR TO SPECIFY Performed By: #### M 100.2200, L400.0001 ####[facility] [address] [place], [address] PROT DIPSTX Negative Normal Negative [facility] Comment on above: Order Comment: COLLE CTOR TO SPECIFY Performed By: #### M 100.2200, L400.0001 ####[facility] [address] [place], [address] SP.GR. DIPSTX 1.015 Normal 1.002-1.030 [facility] Comment on above: Order Comment: COLLE CTOR TO SPECIFY Performed By: #### M 100.2200, L400.0001 ####[facility] [address] [place], [address] UROBILI Normal Normal Normal [facility] Comment on above: Order Comment: XAVIER CTOR TO SPECIFY Performed By: #### M 100.2200, L400.0001 ####[facility] [address] [place], [address] BACTERIA 0 SEEN Normal None Seen [facility] Comment on above: Order Comment: XAVIER CTOR TO SPECIFY Performed By: #### M 100.2200, L400.0001 ####[facility] [address] [place], [address] EPI,SQUAMOUS 0 SEEN Normal 0-5 [facility] Comment on above: Order Comment: XAVIER CTOR TO SPECIFY Performed By: #### M 100.2200, L400.0001 ####[facility] [address] [place], [address] Mucus Ql (Urine sed) 0 SEEN Normal [facility] Comment on above: Order Comment: XAVIER CTOR TO SPECIFY Performed By: #### M 100.2200, L400.0001 ####[facility] [facility] [address] [place], [address] RBC 0 SEEN Normal [address] [place] [address] Comment on above: Order Comment: XAVIER CTOR TO SPECIFY Performed By: #### M 100.2200, L400.0001 ####[facility] [address] [place], [address] WBC 0 SEEN Normal 0-[address] [place] [address] Comment on above: Order Comment: XAVIER CTOR TO SPECIFY Performed By: #### M 100.2200, L400.0001 ####[facility] [address] [place], [address] Urine Cultureon 10-28-2023 URC Susceptibility not normally performed on this organism. Schaalia odontolyticus Archer Count <1000 Corynebacterium jeikeium Archer Count <1000 Corynebacterium species Archer Count <1000 Normal [facility] Comment on above: Performed By: #### M 100.2200 ####[facility] [address] [place], [address] Culture, Blood (WB)on 2023 CUB No growth in 5 days. Normal [facility] Comment on above: Performed By: #### M 200.1000 ####[facility] [address] [place], [address] Basic Metabolic Profile (BMP )on 10-23-2023 BUN/CRE 24.5 RATIO High 10-20 [facility] Comment on above: Performed By: #### L 100.0500, L500.2500 ####[facility] [address] [place], [address] CA,Total 9.0 mg/dL Normal 8.5-10.1 [facility] Comment on above: Performed By: #### L 100.0500, L500.2500 ####[facility] [address] [place], [address] Chloride [Moles/Vol] 103 mmol/L Normal 98-107 [facility] Comment on above: Performed By: #### L 100.0500, L500.2500 ####[facility] [address] [place], [address] CO2 [Moles/Vol] 29.0 mmol/L Normal 21.0-32.0 [facility] Comment on above: Performed By: #### L 100.0500, L500.2500 ####[facility] [address] [place], [address] Creatinine [Mass/Vol] 0.98 mg/dL Normal 0.70-1.30 [facility] Comment on above: Result Comment: The validity of the calculated GFR GFRAA in patients over70 years has not been determined. Clinical correlation isessential. Performed By: #### L 100.0500, L500.2500 ####[facility] [address] [place], [address] ECRCL 82.08 ml/min Normal [facility] Comment on above: Performed By: #### L 100.0500, L500.2500 ####[facility] [address] [place], [address] EST GFR - AA 99 mL/min Normal >60 [facility] Comment on above: Result Comment: Afri can Tanzanian GFR Calc Performed By: #### L 100.0500, L500.2500 ####[facility] [address] [place], [address] GAP 6 Normal 5-15 [facility] Comment on above: Performed By: #### L 100.0500, L500.2500 ####[facility] [address] [place], [address] GFR/1.73 sq M.predicted among non-blacks MDRD (S/P/Bld) [Vol rate/Area] 81 mL/min/{1.73_m2} Normal >60 [facility] Comment on above: Result Comment: Non- GFR Calc Performed By: #### L 100.0500, L500.2500 ####[facility] [address] [place], [address] Glucose [Mass/Vol] 106 mg/dL Normal 74-106 [facility] Comment on above: Result Comment: Fast ing Glucose result from 100 to 125 mg/dLsuggests IMPAIRED HOMEOSTASIS per A.D.A. criteria. Performed By: #### L 100.0500, L500.2500 ####[facility] [address] [place], [address] Potassium [Moles/Vol] 3.7 mmol/L Normal 3.5-5.1 [facility] Comment on above: Performed By: #### L 100.0500, L500.2500 ####[facility] [address] [place], [address] Sodium [Moles/Vol] 138 mmol/L Normal 136-145 [facility] Comment on above: Performed By: #### L 100.0500, L500.2500 ####[facility] [address] [place], [address] Urea nitrogen [Mass/Vol] 24 mg/dL High 7-18 [facility] Comment on above: Performed By: #### L 100.0500, L500.2500 ####[facility] [address] [place], [address] CBC-Complete Blood Cnt No Di ffon 10-23-2023 Erythrocyte distribution width (RBC) [Ratio] 14.1 % Normal 11.6-14.6 [facility] Comment on above: Performed By: #### L 100.0500, L500.2500 ####[facility] [address] [place], [address] Hematocrit (Bld) [Volume fraction] 41.5 % Normal 40-54 [facility] Comment on above: Performed By: #### L 100.0500, L500.2500 ####[facility] [address] [place], [address] Hemoglobin (Bld) [Mass/Vol] 13.3 g/dL Normal 13.0-16.5 [facility] Comment on above: Performed By: #### L 100.0500, L500.2500 ####[facility] [address] [place], [address] MCH (RBC) [Entitic mass] 30.6 pg Normal 27.0-32.0 [facility] Comment on above: Performed By: #### L 100.0500, L500.2500 ####[facility] [address] [place], [address] MCHC (RBC) [Mass/Vol] 32.0 g/dL Normal 32-36 [facility] Comment on above: Performed By: #### L 100.0500, L500.2500 ####[facility] [address] [place], [address] MCV (RBC) [Entitic vol] 95.4 fL High 80-94 [facility] Comment on above: Performed By: #### L 100.0500, L500.2500 ####[facility] [address] [place], [address] Platelet mean volume (Bld) [Entitic vol] 11.3 fL Normal 6.2-12.0 [facility] Comment on above: Performed By: #### L 100.0500, L500.2500 ####[facility] [address] [place], [address] Platelets (Bld) [#/Vol] 184 10*3/uL Normal 150-450 [facility] Comment on above: Performed By: #### L 100.0500, L500.2500 ####[facility] [address] [place], [address] RBC (Bld) [#/Vol] 4.35 10*6/uL Low 4.6-6.2 [facility] Comment on above: Performed By: #### L 100.0500, L500.2500 ####[facility] [address] [place], [address] RDW SD 50.4 fl High 35.1-43.9 [facility] Comment on above: Performed By: #### L 100.0500, L500.2500 ####[facility] [address] [place], [address] WBC (Bld) [#/Vol] 7.7 10*3/uL Normal 4.4-11.0 [facility] Comment on above: Performed By: #### L 100.0500, L500.2500 ####[facility] [address] [place], [address] Abdomen/Pelvis W IV Cont ONL Yon 10-22-2023 Abdomen/Pelvis W IV Cont ONLY Normal [facility] Basic Metabolic Profile (BMP )on 10-22-2023 BUN/CRE 21.7 RATIO High 10-20 [facility] Comment on above: Performed By: #### L 501.9520, L500.2500, L100.0100 ####[facility] [address] [place], [address] CA,Total 8.8 mg/dL Normal 8.5-10.1 [facility] Comment on above: Performed By: #### L 501.9520, L500.2500, L100.0100 ####[facility] [address] [place], [address] Chloride [Moles/Vol] 101 mmol/L Normal 98-107 [facility] Comment on above: Performed By: #### L 501.9520, L500.2500, L100.0100 ####[facility] [address] [place], [address] CO2 [Moles/Vol] 29.0 mmol/L Normal 21.0-32.0 [facility] Comment on above: Performed By: #### L 501.9520, L500.2500, L100.0100 ####[facility] [address] [place], [address] Creatinine [Mass/Vol] 1.15 mg/dL Normal 0.70-1.30 [facility] Comment on above: Result Comment: The validity of the calculated GFR GFRAA in patients over70 years has not been determined. Clinical correlation isessential. Performed By: #### L 501.9520, L500.2500, L100.0100 ####[facility] [address] [place], [address] ECRCL 69.95 ml/min Normal [facility] Comment on above: Performed By: #### L 501.9520, L500.2500, L100.0100 ####[facility] [address] [place], [address] EST GFR - AA 82 mL/min Normal >60 [facility] Comment on above: Result Comment: Afri can Tanzanian GFR Calc Performed By: #### L 501.9520, L500.2500, L100.0100 ####[facility] [address] [place], [address] GAP 5 Normal 5-15 [facility] Comment on above: Performed By: #### L 501.9520, L500.2500, L100.0100 ####[facility] [address] [place], [address] GFR/1.73 sq M.predicted among non-blacks MDRD (S/P/Bld) [Vol rate/Area] 68 mL/min/{1.73_m2} Normal >60 [facility] Comment on above: Result Comment: Non- GFR Calc Performed By: #### L 501.9520, L500.2500, L100.0100 ####[facility] [address] [place], [address] Glucose [Mass/Vol] 120 mg/dL High 74-106 [facility] Comment on above: Result Comment: Fast ing Glucose result from 100 to 125 mg/dLsuggests IMPAIRED HOMEOSTASIS per A.D.A. criteria. Performed By: #### L 501.9520, L500.2500, L100.0100 ####[facility] [address] [place], [address] Potassium [Moles/Vol] 4.3 mmol/L Normal 3.5-5.1 [facility] Comment on above: Performed By: #### L 501.9520, L500.2500, L100.0100 ####[facility] [address] [place], [address] Sodium [Moles/Vol] 135 mmol/L Low 136-145 [facility] Comment on above: Performed By: #### L 501.9520, L500.2500, L100.0100 ####[facility] [address] [place], [address] Urea nitrogen [Mass/Vol] 25 mg/dL High 7-18 [facility] Comment on above: Performed By: #### L 501.9520, L500.2500, L100.0100 ####[facility] [address] [place], [address] CBC W/Diff, Automatedon 090 -2023 Absolute Lymph 0.85 X10 3/uL Normal 0.83-4.51 [facility] Comment on above: Performed By: #### L 501.9520, L500.2500, L100.0100 ####[facility] [address] [place], [address] Absolute Neut 5.9 X10 3/uL Normal 2.0-7.7 [facility] Comment on above: Performed By: #### L 501.9520, L500.2500, L100.0100 ####[facility] [address] [place], [address] Basophils/100 WBC (Bld) 0.1 % Normal 0-1 [facility] Comment on above: Performed By: #### L 501.9520, L500.2500, L100.0100 ####[facility] [address] [place], [address] Eosinophils/100 WBC (Bld) 0.0 % Normal 0-5 [facility] Comment on above: Performed By: #### L 501.9520, L500.2500, L100.0100 ####[facility] [address] [place], [address] Erythrocyte distribution width (RBC) [Ratio] 14.2 % Normal 11.6-14.6 [facility] Comment on above: Performed By: #### L 501.9520, L500.2500, L100.0100 ####[facility] [address], [address] Hematocrit (Bld) [Volume fraction] 41.8 % Normal 40-54 [facility] Comment on above: Performed By: #### L 501.9520, L500.2500, L100.0100 ####[facility] [address] [place], [address] Hemoglobin (Bld) [Mass/Vol] 13.5 g/dL Normal 13.0-16.5 [facility] Comment on above: Performed By: #### L 501.9520, L500.2500, L100.0100 ####[facility] [address] [place], [address] IG% 0.300 Normal 0.0-0.9 [facility] Comment on above: Result Comment: IG% - Immature Granulocytes (promyelocytes, myelocytes andmetamyelocytes) > 1% indicates that a LEFT SHIFT is Present. Performed By: #### L 501.9520, L500.2500, L100.0100 ####[facility] [address], [address] Lymphocytes/100 WBC (Bld) 12.2 % Low 19-41 [facility] Comment on above: Performed By: #### L 501.9520, L500.2500, L100.0100 ####[facility] [address] [place], [address] MCH (RBC) [Entitic mass] 30.8 pg Normal 27.0-32.0 [facility] Comment on above: Performed By: #### L 501.9520, L500.2500, L100.0100 ####[facility] [address], [address] MCHC (RBC) [Mass/Vol] 32.3 g/dL Normal 32-36 [facility] Comment on above: Performed By: #### L 501.9520, L500.2500, L100.0100 ####[facility] [address] [place], [address] MCV (RBC) [Entitic vol] 95.2 fL High 80-94 [facility] Comment on above: Performed By: #### L 501.9520, L500.2500, L100.0100 ####[facility] [address], [address] Monocytes/100 WBC (Bld) 2.7 % Normal 0-10 [facility] Comment on above: Performed By: #### L 501.9520, L500.2500, L100.0100 ####[facility] [address] [place], [address] Neutrophils/100 WBC (Bld) 84.7 % High 47-70 [facility] Comment on above: Performed By: #### L 501.9520, L500.2500, L100.0100 ####[facility] [address] [place], [address] Nucleated RBC (Bld) [#/Vol] 0 10*3/uL Normal 0-5 [facility] Comment on above: Performed By: #### L 501.9520, L500.2500, L100.0100 ####[facility] [address] [place], [address] Platelet mean volume (Bld) [Entitic vol] 10.8 fL Normal 6.2-12.0 [facility] Comment on above: Performed By: #### L 501.9520, L500.2500, L100.0100 ####[facility] [address], [address] Platelets (Bld) [#/Vol] 185 10*3/uL Normal 150-450 [facility] Comment on above: Performed By: #### L 501.9520, L500.2500, L100.0100 ####[facility] [address] [place], [address] RBC (Bld) [#/Vol] 4.39 10*6/uL Low 4.6-6.2 [facility] Comment on above: Performed By: #### L 501.9520, L500.2500, L100.0100 ####[facility] [address] [place], [address] RDW SD 50.3 fl High 35.1-43.9 [facility] Comment on above: Performed By: #### L 501.9520, L500.2500, L100.0100 ####[facility] [address] [place], [address] WBC (Bld) [#/Vol] 7.0 10*3/uL Normal 4.4-11.0 [facility] Comment on above: Performed By: #### L 501.9520, L500.2500, L100.0100 ####[facility] [address] [place], [address] Chest PA and Lateralon 10-21 Chest PA and Lateral Normal [facility] Emergency Department Summary on 10-22-2023 Emergency Department Summary Normal [facility] M100.678on 10-22-2023 M100.678 Normal [facility] Comment on above: Performed By: #### M 100.678, L400.0001 ####[facility] [address] [place], [address] T4 Free Directon 10-22-2023 T4 FREE DIRECT 1.31 ng/dL Normal 0.76-1.46 [facility] Comment on above: Performed By: #### L 506.0400 ####[facility] [address] [place], [address] Thyroid Stim Hormone (TSH)on 10-22-2023 TSH 0.168 uIU/mL Low 0.358-3.740 [facility] Comment on above: Performed By: #### L 501.9520, L500.2500, L100.0100 ####[facility] [address] [place], [address] Urinalysis, Completeon 10-21 BACTERIA 1+ /hpf Normal None Seen [facility] Comment on above: Order Comment: COLOR OF URINE MAY AFFECT DIPSTICK RESULTS.BLADDER TAP Performed By: #### M 100.678, L400.0001 ####[facility] [address] [place], [address] CAST,FINE GRAN 0-5 SEEN Normal 0-5 [facility] Comment on above: Order Comment: COLOR OF URINE MAY AFFECT DIPSTICK RESULTS.BLADDER TAP Performed By: #### M 100.678, L400.0001 ####[facility] [address] [place], [address] CAST,HYALINE 5-10 SEEN Normal 0-5 [facility] Comment on above: Order Comment: COLOR OF URINE MAY AFFECT DIPSTICK RESULTS.BLADDER TAP Performed By: #### M 100.678, L400.0001 ####[facility] [address] [place], [address] EPI,SQUAMOUS 0-5 SEEN Normal 0-5 [facility] Comment on above: Order Comment: COLOR OF URINE MAY AFFECT DIPSTICK RESULTS.BLADDER TAP Performed By: #### M 100.678, L400.0001 ####[facility] [address] [place], [address] Mucus Ql (Urine sed) 1+ /hpf Normal [facility] Comment on above: Order Comment: COLOR OF URINE MAY AFFECT DIPSTICK RESULTS.BLADDER TAP Performed By: #### M 100.678, L400.0001 ####[facility] [address] [place], [address] RBC > 100 SEEN Normal 0-5 [facility] Comment on above: Order Comment: COLOR OF URINE MAY AFFECT DIPSTICK RESULTS.BLADDER TAP Performed By: #### M 100.678, L400.0001 ####[facility] [address] [place], [address] WBC 10-25 SEEN Normal 0-5 [facility] Comment on above: Order Comment: COLOR OF URINE MAY AFFECT DIPSTICK RESULTS.BLADDER TAP Performed By: #### M 100.678, L400.0001 ####[facility] [address] [place], [address] BNP,B-Type NATRIURETIC PEPTI Daniel 10-21-2023 Natriuretic peptide B (Bld) [Mass/Vol] 75.5 pg/mL Normal 0-100 [facility] Comment on above: Performed By: #### L 501.5200, L100.0100, L501.9520, L503.6620, L503.6005, L500.2500, L500.3400 ####[facility] [address] [place], [address] Basic Metabolic Profile (BMP )on 10-21-2023 BUN/CRE 21.9 RATIO High 10-20 [facility] Comment on above: Performed By: #### L 501.5200, L100.0100, L501.9520, L503.6620, L503.6005, L500.2500, L500.3400 ####[facility] [address] [place], [address] CA,Total 8.8 mg/dL Normal 8.5-10.1 [facility] Comment on above: Performed By: #### L 501.5200, L100.0100, L501.9520, L503.6620, L503.6005, L500.2500, L500.3400 ####[facility] [address] [place], [address] Chloride [Moles/Vol] 97 mmol/L Low 98-107 [facility] Comment on above: Performed By: #### L 501.5200, L100.0100, L501.9520, L503.6620, L503.6005, L500.2500, L500.3400 ####[facility] [address] [place], [address] CO2 [Moles/Vol] 27.0 mmol/L Normal 21.0-32.0 [facility] Comment on above: Performed By: #### L 501.5200, L100.0100, L501.9520, L503.6620, L503.6005, L500.2500, L500.3400 ####[facility] [address] [place], [address] Creatinine [Mass/Vol] 1.60 mg/dL High 0.70-1.30 [facility] Comment on above: Result Comment: The validity of the calculated GFR GFRAA in patients over70 years has not been determined. Clinical correlation isessential. Performed By: #### L 501.5200, L100.0100, L501.9520, L503.6620, L503.6005, L500.2500, L500.3400 ####[facility] [address] [place], [address] EST GFR - AA 56 mL/min Low >60 [facility] Comment on above: Result Comment: Afri can Tanzanian GFR Calc Performed By: #### L 501.5200, L100.0100, L501.9520, L503.6620, L503.6005, L500.2500, L500.3400 ####[facility] [address] [place], [address] GAP 9 Normal 5-15 [facility] Comment on above: Performed By: #### L 501.5200, L100.0100, L501.9520, L503.6620, L503.6005, L500.2500, L500.3400 ####[facility] [address] [place], [address] GFR/1.73 sq M.predicted among non-blacks MDRD (S/P/Bld) [Vol rate/Area] 46 mL/min/{1.73_m2} Low >60 [facility] Comment on above: Result Comment: Non- GFR Calc Performed By: #### L 501.5200, L100.0100, L501.9520, L503.6620, L503.6005, L500.2500, L500.3400 ####[facility] [address] [place], [address] Glucose [Mass/Vol] 114 mg/dL High 74-106 [facility] Comment on above: Result Comment: Fast ing Glucose result from 100 to 125 mg/dLsuggests IMPAIRED HOMEOSTASIS per A.D.A. criteria. Performed By: #### L 501.5200, L100.0100, L501.9520, L503.6620, L503.6005, L500.2500, L500.3400 ####[facility] [address] [place], [address] Potassium [Moles/Vol] 3.5 mmol/L Normal 3.5-5.1 [facility] Comment on above: Performed By: #### L 501.5200, L100.0100, L501.9520, L503.6620, L503.6005, L500.2500, L500.3400 ####[facility] [address] [place], [address] Sodium [Moles/Vol] 133 mmol/L Low 136-145 [facility] Comment on above: Performed By: #### L 501.5200, L100.0100, L501.9520, L503.6620, L503.6005, L500.2500, L500.3400 ####[facility] [address] [place], [address] Urea nitrogen [Mass/Vol] 35 mg/dL High 7-18 [facility] Comment on above: Performed By: #### L 501.5200, L100.0100, L501.9520, L503.6620, L503.6005, L500.2500, L500.3400 ####[facility] [address] [place], [address] CBC W/Diff, Automatedon 09-0 2-202 Absolute Lymph 0.81 X10 3/uL Low 0.83-4.51 [facility] Comment on above: Performed By: #### L 501.5200, L100.0100, L501.9520, L503.6620, L503.6005, L500.2500, L500.3400 ####[facility] [address] [place], [address] Absolute Neut 8.4 X10 3/uL High 2.0-7.7 [facility] Comment on above: Performed By: #### L 501.5200, L100.0100, L501.9520, L503.6620, L503.6005, L500.2500, L500.3400 ####[facility] [address] [place], [address] Basophils/100 WBC (Bld) 0.2 % Normal 0-1 [facility] Comment on above: Performed By: #### L 501.5200, L100.0100, L501.9520, L503.6620, L503.6005, L500.2500, L500.3400 ####[facility] [address] [place], [address] Eosinophils/100 WBC (Bld) 0.0 % Normal 0-5 [facility] Comment on above: Performed By: #### L 501.5200, L100.0100, L501.9520, L503.6620, L503.6005, L500.2500, L500.3400 ####[facility] [address] [place], [address] Erythrocyte distribution width (RBC) [Ratio] 14.0 % Normal 11.6-14.6 [facility] Comment on above: Performed By: #### L 501.5200, L100.0100, L501.9520, L503.6620, L503.6005, L500.2500, L500.3400 ####[facility] [address] [place], [address] Hematocrit (Bld) [Volume fraction] 42.7 % Normal 40-54 [facility] Comment on above: Performed By: #### L 501.5200, L100.0100, L501.9520, L503.6620, L503.6005, L500.2500, L500.3400 ####[facility] [address] [place], [address] Hemoglobin (Bld) [Mass/Vol] 13.8 g/dL Normal 13.0-16.5 [facility] Comment on above: Performed By: #### L 501.5200, L100.0100, L501.9520, L503.6620, L503.6005, L500.2500, L500.3400 ####[facility] [address] [place], [address] IG% 0.400 Normal 0.0-0.9 [facility] Comment on above: Result Comment: IG% - Immature Granulocytes (promyelocytes, myelocytes andmetamyelocytes) > 1% indicates that a LEFT SHIFT is Present. Performed By: #### L 501.5200, L100.0100, L501.9520, L503.6620, L503.6005, L500.2500, L500.3400 ####[facility] [address] [place], [address] Lymphocytes/100 WBC (Bld) 8.1 % Low 19-41 [facility] Comment on above: Performed By: #### L 501.5200, L100.0100, L501.9520, L503.6620, L503.6005, L500.2500, L500.3400 ####[facility] [address] [place], [address] MCH (RBC) [Entitic mass] 30.7 pg Normal 27.0-32.0 [facility] Comment on above: Performed By: #### L 501.5200, L100.0100, L501.9520, L503.6620, L503.6005, L500.2500, L500.3400 ####[facility] [address] [place], [address] MCHC (RBC) [Mass/Vol] 32.3 g/dL Normal 32-36 [facility] Comment on above: Performed By: #### L 501.5200, L100.0100, L501.9520, L503.6620, L503.6005, L500.2500, L500.3400 ####[facility] [address] [place], [address] MCV (RBC) [Entitic vol] 95.1 fL High 80-94 [facility] Comment on above: Performed By: #### L 501.5200, L100.0100, L501.9520, L503.6620, L503.6005, L500.2500, L500.3400 ####[facility] [address] [place], [address] Monocytes/100 WBC (Bld) 7.2 % Normal 0-10 [facility] Comment on above: Performed By: #### L 501.5200, L100.0100, L501.9520, L503.6620, L503.6005, L500.2500, L500.3400 ####[facility] [address] [place], [address] Neutrophils/100 WBC (Bld) 84.1 % High 47-70 [facility] Comment on above: Performed By: #### L 501.5200, L100.0100, L501.9520, L503.6620, L503.6005, L500.2500, L500.3400 ####[facility] [address] [place], [address] Nucleated RBC (Bld) [#/Vol] 0 10*3/uL Normal 0-5 [facility] Comment on above: Performed By: #### L 501.5200, L100.0100, L501.9520, L503.6620, L503.6005, L500.2500, L500.3400 ####[facility] [address] [place], [address] Platelet mean volume (Bld) [Entitic vol] 10.7 fL Normal 6.2-12.0 [facility] Comment on above: Performed By: #### L 501.5200, L100.0100, L501.9520, L503.6620, L503.6005, L500.2500, L500.3400 ####[facility] [address] [place], [address] Platelets (Bld) [#/Vol] 216 10*3/uL Normal 150-450 [facility] Comment on above: Performed By: #### L 501.5200, L100.0100, L501.9520, L503.6620, L503.6005, L500.2500, L500.3400 ####[facility] [address] [place], [address] RBC (Bld) [#/Vol] 4.49 10*6/uL Low 4.6-6.2 [facility] Comment on above: Performed By: #### L 501.5200, L100.0100, L501.9520, L503.6620, L503.6005, L500.2500, L500.3400 ####[facility] [address] [place], [address] RDW SD 49.1 fl High 35.1-43.9 [facility] Comment on above: Performed By: #### L 501.5200, L100.0100, L501.9520, L503.6620, L503.6005, L500.2500, L500.3400 ####[facility] [address] [place], [place], [id number] WBC (Bld) [#/Vol] 10.0 10*3/uL Normal 4.4-11.0 [facility] Comment on above: Performed By: #### L 501.5200, L100.0100, L501.9520, L503.6620, L503.6005, L500.2500, L500.3400 ####[facility] [address] [place], [place], [id number] Lactic Acidon 10-21-2023 Lactate [Moles/Vol] 1.5 mmol/L Normal 0.4-1.9 [facility] Comment on above: Order Comment: Y Performed By: #### L 501.5200, L100.0100, L501.9520, L503.6620, L503.6005, L500.2500, L500.3400 ####[facility] [address] [place], [place], [id number] Liver Profileon 10-21-2023 Albumin [Mass/Vol] 3.4 g/dL Normal 3.2-5.0 [facility] Comment on above: Performed By: #### L 501.5200, L100.0100, L501.9520, L503.6620, L503.6005, L500.2500, L500.3400 ####[facility] [address] [place], [address] ALK P 82 U/L Normal 45-117 [facility] Comment on above: Performed By: #### L 501.5200, L100.0100, L501.9520, L503.6620, L503.6005, L500.2500, L500.3400 ####[facility] [address] [place], [address] ALT [Catalytic activity/Vol] 15 U/L Low 16-61 [facility] Comment on above: Performed By: #### L 501.5200, L100.0100, L501.9520, L503.6620, L503.6005, L500.2500, L500.3400 ####[facility] [address] [place], [address] AST [Catalytic activity/Vol] 22 U/L Normal 15-37 [facility] Comment on above: Performed By: #### L 501.5200, L100.0100, L501.9520, L503.6620, L503.6005, L500.2500, L500.3400 ####[facility] [address] [place], [address] Bilirubin [Mass/Vol] 0.60 mg/dL Normal 0.20-1.00 [facility] Comment on above: Result Comment: For patients on eltrombopag therapy, use of Dimension [place] TBIL is not recommended. Performed By: #### L 501.5200, L100.0100, L501.9520, L503.6620, L503.6005, L500.2500, L500.3400 ####[facility] [address] [place], [address] Bilirubin.direct [Mass/Vol] 0.26 mg/dL Normal 0.00-0.30 [facility] Comment on above: Performed By: #### L 501.5200, L100.0100, L501.9520, L503.6620, L503.6005, L500.2500, L500.3400 ####[facility] [address] [place], [address] Globulin (S) [Mass/Vol] 3.7 g/dL Normal 2.2-4.2 [facility] Comment on above: Performed By: #### L 501.5200, L100.0100, L501.9520, L503.6620, L503.6005, L500.2500, L500.3400 ####[facility] [address] [place], [address] T PROT 7.1 g/dL Normal 6.4-8.2 [facility] Comment on above: Performed By: #### L 501.5200, L100.0100, L501.9520, L503.6620, L503.6005, L500.2500, L500.3400 ####[facility] [address] [place], [address] Magnesiumon 10-21-2023 Magnesium [Mass/Vol] 2.2 mg/dL Normal 1.6-2.6 [facility] Comment on above: Performed By: #### L 501.5200, L100.0100, L501.9520, L503.6620, L503.6005, L500.2500, L500.3400 ####[facility] [address] [place], [address] Thyroid Stim Hormone (TSH)on 10-21-2023 TSH 0.168 uIU/mL Low 0.358-3.740 [facility] Comment on above: Performed By: #### L 501.5200, L100.0100, L501.9520, L503.6620, L503.6005, L500.2500, L500.3400 ####[facility] [address] [place], [address] POCT UA Automated manually r esultedon 10-17-2023 Appearance (U) Clear Clear [facility] Work Phone: Glucose Test strip (U) [Mass/Vol] Negative NEGATIVE mg/dl [facility] Work Phone: [phone] Hemoglobin Ql (U) LARGE (3+) Abnormal NEGATIVE [facility] Work Phone: [phone] Interpretation and review of laboratory results Abnormal [facility] Work Phone: [phone] Leukocyte esterase Test strip Ql (U) SMALL (1+) Abnormal NEGATIVE [facility] Work Phone: [phone] Nitrite Ql (U) Negative NEGATIVE [facility] Work Phone: [phone] pH (U) 8.5 [pH] No Reference Range Established [facility] Work Phone: [phone] POC Bilirubin, Urine SMALL (1+) Abnormal NEGATIVE [facility]: [phone] POC Color, Urine Yellow Straw, Yellow, Light-Yellow [facility] Work Phone: POC Ketones, Urine Negative NEGATIVE mg/dl [facility] Work Phone: POC Protein, Urine >=300 (3+) Abnormal NEGATIVE, 30 (1+) mg/dl [facility] Work Phone: POC Specific [place], Urine 1.020 1.005 - 1.035 [facility] Work Phone: POC Urobilinogen, Urine 0.2 0.2, 1.0 EU/DL [facility] Work Phone: [facility] Work Phone: Pulmonary Visit Reporton Pulmonary Visit Report Normal [facility] Basic Metabolic Profile (BMP )on 10-14-2023 BUN Normal 7-18 [facility] Comment on above: Result Comment: Canc elled via OM: Order cancelled - Patient discharged Performed By: #### L 500.2500, L100.0100 ####[facility] [address] [place], [address] BUN/CRE Normal 10-20 [facility] Comment on above: Result Comment: Canc elled via OM: Order cancelled - Patient discharged Performed By: #### L 500.2500, L100.0100 ####[facility] [address] [place], [address] CA,Total Normal 8.5-10.1 [facility] Comment on above: Result Comment: Canc elled via OM: Order cancelled - Patient discharged Performed By: #### L 500.2500, L100.0100 ####[facility] [address] [place], [address] CL Normal 98-107 [facility] Comment on above: Result Comment: Canc elled via OM: Order cancelled - Patient discharged Performed By: #### L 500.2500, L100.0100 ####[facility] [address] [place], [address] CO2 Normal 21.0-32.0 [facility] Comment on above: Result Comment: Canc elled via OM: Order cancelled - Patient discharged Performed By: #### L 500.2500, L100.0100 ####[facility] [address] [place], [address] CREAT,SERUM Normal 0.70-1.30 [facility] Comment on above: Result Comment: Canc elled via OM: Order cancelled - Patient discharged Performed By: #### L 500.2500, L100.0100 ####[facility] [address] [place], [address] EST GFR Normal >60 [facility] Comment on above: Result Comment: Canc elled via OM: Order cancelled - Patient discharged Performed By: #### L 500.2500, L100.0100 ####[facility] [address] [place], [address] EST GFR - AA Normal >60 [facility] Comment on above: Result Comment: Canc elled via OM: Order cancelled - Patient discharged Performed By: #### L 500.2500, L100.0100 ####[facility] [address] [place], [address] GAP Normal 5-15 [facility] Comment on above: Result Comment: Canc elled via OM: Order cancelled - Patient discharged Performed By: #### L 500.2500, L100.0100 ####[facility] [address] [place], [address] GLU Normal 74-106 [facility] Comment on above: Result Comment: Canc elled via OM: Order cancelled - Patient discharged Performed By: #### L 500.2500, L100.0100 ####[facility] [address] [place], [address] Potassium Normal 3.5-5.1 [facility] Comment on above: Result Comment: Canc elled via OM: Order cancelled - Patient discharged Performed By: #### L 500.2500, L100.0100 ####[facility] [address] [place], [address] Basic Metabolic Profile (BMP) Normal 136-145 [facility] Comment on above: Result Comment: Canc elled via OM: Order cancelled - Patient discharged Performed By: #### L 500.2500, L100.0100 ####[facility] [address] [place], [address] CBC W/Diff, Automatedon 08-2 Absolute Neut Normal 2.0-7.7 [facility] Comment on above: Result Comment: Canc elled via OM: Order cancelled - Patient discharged Performed By: #### L 500.2500, L100.0100 ####[facility] [address] [place], [address] HCT Normal 40-54 [facility] Comment on above: Result Comment: Canc elled via OM: Order cancelled - Patient discharged Performed By: #### L 500.2500, L100.0100 ####[facility] [address] [place], [address] HGB Normal 13.0-16.5 [facility] Comment on above: Result Comment: Canc elled via OM: Order cancelled - Patient discharged Performed By: #### L 500.2500, L100.0100 ####[facility] [address] [place], [address] MCH Normal 27.0-32.0 [facility] Comment on above: Result Comment: Canc elled via OM: Order cancelled - Patient discharged Performed By: #### L 500.2500, L100.0100 ####[facility] [address] [place], [address] MCHC Normal 32-36 [facility] Comment on above: Result Comment: Canc elled via OM: Order cancelled - Patient discharged Performed By: #### L 500.2500, L100.0100 ####[facility] [address] [place], [address] MCV Normal 80-94 [facility] Comment on above: Result Comment: Canc elled via OM: Order cancelled - Patient discharged Performed By: #### L 500.2500, L100.0100 ####[facility] [address] [place], [address] NEUT% Normal 47-70 [facility] Comment on above: Result Comment: Canc elled via OM: Order cancelled - Patient discharged Performed By: #### L 500.2500, L100.0100 ####[facility] [address] [place], [address] PLT Normal 150-450 [facility] Comment on above: Result Comment: Canc elled via OM: Order cancelled - Patient discharged Performed By: #### L 500.2500, L100.0100 ####[facility] [address] [place], [address] RBC Normal 4.6-6.2 [facility] Comment on above: Result Comment: Canc elled via OM: Order cancelled - Patient discharged Performed By: #### L 500.2500, L100.0100 ####[facility] [address] [place], [address] RDW CV Normal 11.6-14.6 [facility] Comment on above: Result Comment: Canc elled via OM: Order cancelled - Patient discharged Performed By: #### L 500.2500, L100.0100 ####[facility] [address] [place], [address] RDW SD Normal 35.1-43.9 [facility] Comment on above: Result Comment: Canc elled via OM: Order cancelled - Patient discharged Performed By: #### L 500.2500, L100.0100 ####[facility] [address] [place], [address] WBC Normal 4.4-11.0 [facility] Comment on above: Result Comment: Canc elled via OM: Order cancelled - Patient discharged Performed By: #### L 500.2500, L100.0100 ####[facility] [address] [place], [address] Basic Metabolic Profile (BMP )on 10-11-2023 BUN/CRE 21.5 RATIO High 10-20 [facility] Comment on above: Performed By: #### L 500.2500, L100.0100 ####[facility] [address] [place], [address] CA,Total 9.3 mg/dL Normal 8.5-10.1 [facility] Comment on above: Performed By: #### L 500.2500, L100.0100 ####[facility] [address] [place], [address] Chloride [Moles/Vol] 103 mmol/L Normal 98-107 [facility] Comment on above: Performed By: #### L 500.2500, L100.0100 ####[facility] [address] [place], [address] CO2 [Moles/Vol] 26.0 mmol/L Normal 21.0-32.0 [facility] Comment on above: Performed By: #### L 500.2500, L100.0100 ####[facility] [address] [place], [address] Creatinine [Mass/Vol] 1.30 mg/dL Normal 0.70-1.30 [facility] Comment on above: Result Comment: The validity of the calculated GFR GFRAA in patients over70 years has not been determined. Clinical correlation isessential. Performed By: #### L 500.2500, L100.0100 ####[facility] [address] [place], [address] ECRCL 63.19 ml/min Normal [facility] Comment on above: Performed By: #### L 500.2500, L100.0100 ####[facility] [address] [place], [address] EST GFR - AA 71 mL/min Normal >60 [facility] Comment on above: Result Comment: Afri can Tanzanian GFR Calc Performed By: #### L 500.2500, L100.0100 ####[facility] [address] [place], [address] GAP 9 Normal 5-15 [facility] Comment on above: Performed By: #### L 500.2500, L100.0100 ####[facility] [address] [place], [address] GFR/1.73 sq M.predicted among non-blacks MDRD (S/P/Bld) [Vol rate/Area] 59 mL/min/{1.73_m2} Low >60 [facility] Comment on above: Result Comment: Non- GFR Calc Performed By: #### L 500.2500, L100.0100 ####[facility] [address] [place], [address] Glucose [Mass/Vol] 106 mg/dL Normal 74-106 [facility] Comment on above: Result Comment: Fast ing Glucose result from 100 to 125 mg/dLsuggests IMPAIRED HOMEOSTASIS per A.D.A. criteria. Performed By: #### L 500.2500, L100.0100 ####[facility] [address] [place], [address] Potassium [Moles/Vol] 3.7 mmol/L Normal 3.5-5.1 [facility] Comment on above: Performed By: #### L 500.2500, L100.0100 ####[facility] [address] [place], [address] Sodium [Moles/Vol] 138 mmol/L Normal 136-145 [facility] Comment on above: Performed By: #### L 500.2500, L100.0100 ####[facility] [address] [place], [address] Urea nitrogen [Mass/Vol] 28 mg/dL High 7-18 [facility] Comment on above: Performed By: #### L 500.2500, L100.0100 ####[facility] [address] [place], [address] CBC W/Diff, Automatedon 09-19 Absolute Lymph 1.00 X10 3/uL Normal 0.83-4.51 [facility] Comment on above: Performed By: #### L 500.2500, L100.0100 ####[facility] [address] [place], [address] Absolute Neut 11.8 X10 3/uL High 2.0-7.7 [facility] Comment on above: Performed By: #### L 500.2500, L100.0100 ####[facility] [address] [place], [address] Basophils/100 WBC (Bld) 0.2 % Normal 0-1 [facility] Comment on above: Performed By: #### L 500.2500, L100.0100 ####[facility] [address] [place], [address] Eosinophils/100 WBC (Bld) 0.1 % Normal 0-5 [facility] Comment on above: Performed By: #### L 500.2500, L100.0100 ####[facility] [address] [place], [address] Erythrocyte distribution width (RBC) [Ratio] 14.1 % Normal 11.6-14.6 [facility] Comment on above: Performed By: #### L 500.2500, L100.0100 ####[facility] [address] [place], [address] Hematocrit (Bld) [Volume fraction] 41.5 % Normal 40-54 [facility] Comment on above: Performed By: #### L 500.2500, L100.0100 ####[facility] [address] [place], [place], [address] Hemoglobin (Bld) [Mass/Vol] 13.6 g/dL Normal 13.0-16.5 [facility] Comment on above: Performed By: #### L 500.2500, L100.0100 ####[facility] [address] [place], [address] IG% 0.500 Normal 0.0-0.9 [facility] Comment on above: Result Comment: IG% - Immature Granulocytes (promyelocytes, myelocytes andmetamyelocytes) > 1% indicates that a LEFT SHIFT is Present. Performed By: #### L 500.2500, L100.0100 ####[facility] [address] [place], [address] Lymphocytes/100 WBC (Bld) 7.2 % Low 19-41 [facility] Comment on above: Performed By: #### L 500.2500, L100.0100 ####[facility] [address] [place], [address] MCH (RBC) [Entitic mass] 30.6 pg Normal 27.0-32.0 [facility] Comment on above: Performed By: #### L 500.2500, L100.0100 ####[facility] [address] [place], [address] MCHC (RBC) [Mass/Vol] 32.8 g/dL Normal 32-36 [facility] Comment on above: Performed By: #### L 500.2500, L100.0100 ####[facility] [address] [place], [address] MCV (RBC) [Entitic vol] 93.5 fL Normal 80-94 [facility] Comment on above: Performed By: #### L 500.2500, L100.0100 ####[facility] [address] [place], [address] Monocytes/100 WBC (Bld) 7.0 % Normal 0-10 [facility] Comment on above: Performed By: #### L 500.2500, L100.0100 ####[facility] [address] [place], [address] Neutrophils/100 WBC (Bld) 85.0 % High 47-70 [facility] Comment on above: Performed By: #### L 500.2500, L100.0100 ####[facility] [address] [place], [address] Nucleated RBC (Bld) [#/Vol] 0 10*3/uL Normal 0-5 [facility] Comment on above: Performed By: #### L 500.2500, L100.0100 ####[facility] [address] [place], [address] Platelet mean volume (Bld) [Entitic vol] 12.4 fL High 6.2-12.0 [facility] Comment on above: Performed By: #### L 500.2500, L100.0100 ####[facility] [address] [place], [address] Platelets (Bld) [#/Vol] 127 10*3/uL Low 150-450 [facility] Comment on above: Performed By: #### L 500.2500, L100.0100 ####[facility] [address] [place], [address] RBC (Bld) [#/Vol] 4.44 10*6/uL Low 4.6-6.2 [facility] Comment on above: Performed By: #### L 500.2500, L100.0100 ####[facility] [address] [place], [address] RDW SD 49.0 fl High 35.1-43.9 [facility] Comment on above: Performed By: #### L 500.2500, L100.0100 ####[facility] [address] [place], [address] WBC (Bld) [#/Vol] 13.9 10*3/uL High 4.4-11.0 [facility] Comment on above: Performed By: #### L 500.2500, L100.0100 ####[facility] [address] [place], [address] Emergency Department Summary on 10-11-2023 Emergency Department Summary Normal [facility] Urinalysis, Completeon 10-10 BACTERIA 2+ /hpf Normal None Seen [facility] Comment on above: Order Comment: COLOR OF URINE MAY AFFECT DIPSTICK RESULTS.HEELER TO SPECIFY Performed By: #### L 400.0001 ####[facility] [address] [place], [address] WBC 5-10 SEEN Normal 0-5 [facility] Comment on above: Order Comment: COLOR OF URINE MAY AFFECT DIPSTICK RESULTS.HEELER TO SPECIFY Performed By: #### L 400.0001 ####[facility] [address] [place], [address] RBC > 100 SEEN Normal 0-5 [facility] Comment on above: Order Comment: COLOR OF URINE MAY AFFECT DIPSTICK RESULTS.HEELER TO SPECIFY Performed By: #### L 400.0001 ####[facility] [address] [place], [address] EPI,SQUAMOUS 0 SEEN Normal 0-[address] [place] [address] Comment on above: Order Comment: COLOR OF URINE MAY AFFECT DIPSTICK RESULTS.HEELER TO SPECIFY Performed By: #### L 400.0001 ####[facility] [address] [place], [address] Mucus Ql (Urine sed) 0 SEEN Normal [facility] Comment on above: Order Comment: COLOR OF URINE MAY AFFECT DIPSTICK RESULTS.HEELER TO SPECIFY Performed By: #### L 400.0001 ####[facility] [address] [place], [address] Cardiology Visit Reporton Cardiology Visit Report Normal [facility] Basic Metabolic Profile (BMP )on 10-07-2023 BUN Normal 7-18 [facility] Comment on above: Result Comment: Canc elled via OM: Order cancelled - Patient discharged Performed By: #### L 100.0100, L500.2500 ####[facility] [address] [place], [address] BUN/CRE Normal 10-20 [facility] Comment on above: Result Comment: Canc elled via OM: Order cancelled - Patient discharged Performed By: #### L 100.0100, L500.2500 ####[facility] [address] [place], [address] CA,Total Normal 8.5-10.1 [facility] Comment on above: Result Comment: Canc elled via OM: Order cancelled - Patient discharged Performed By: #### L 100.0100, L500.2500 ####[facility] [address] [place], [address] CL Normal 98-107 [facility] Comment on above: Result Comment: Canc elled via OM: Order cancelled - Patient discharged Performed By: #### L 100.0100, L500.2500 ####[facility] [address] [place], [address] CO2 Normal 21.0-32.0 [facility] Comment on above: Result Comment: Canc elled via OM: Order cancelled - Patient discharged Performed By: #### L 100.0100, L500.2500 ####[facility] [address] [place], [address] CREAT,SERUM Normal 0.70-1.30 [facility] Comment on above: Result Comment: Canc elled via OM: Order cancelled - Patient discharged Performed By: #### L 100.0100, L500.2500 ####[facility] [address] [place], [address] EST GFR Normal >60 [facility] Comment on above: Result Comment: Canc elled via OM: Order cancelled - Patient discharged Performed By: #### L 100.0100, L500.2500 ####[facility] [address] [place], [address] EST GFR - AA Normal >60 [facility] Comment on above: Result Comment: Canc elled via OM: Order cancelled - Patient discharged Performed By: #### L 100.0100, L500.2500 ####[facility] [address] [place], [address] GAP Normal 5-15 [facility] Comment on above: Result Comment: Canc elled via OM: Order cancelled - Patient discharged Performed By: #### L 100.0100, L500.2500 ####[facility] [address] [place], [address] GLU Normal 74-106 [facility] Comment on above: Result Comment: Canc elled via OM: Order cancelled - Patient discharged Performed By: #### L 100.0100, L500.2500 ####[facility] [address] [place], [address] Potassium Normal 3.5-5.1 [facility] Comment on above: Result Comment: Canc elled via OM: Order cancelled - Patient discharged Performed By: #### L 100.0100, L500.2500 ####[facility] [address] [place], [address] Basic Metabolic Profile (BMP) Normal 136-145 [facility] Comment on above: Result Comment: Canc elled via OM: Order cancelled - Patient discharged Performed By: #### L 100.0100, L500.2500 ####[facility] [address] [place], [address] CBC W/Diff, Automatedon 08-1 Absolute Neut Normal 2.0-7.7 [facility] Comment on above: Result Comment: Canc elled via OM: Order cancelled - Patient discharged Performed By: #### L 100.0100, L500.2500 ####[facility] [address] [place], [address] HCT Normal 40-54 [facility] Comment on above: Result Comment: Canc elled via OM: Order cancelled - Patient discharged Performed By: #### L 100.0100, L500.2500 ####[facility] [address] [place], [address] HGB Normal 13.0-16.5 [facility] Comment on above: Result Comment: Canc elled via OM: Order cancelled - Patient discharged Performed By: #### L 100.0100, L500.2500 ####[facility] [address] [place], [address] MCH Normal 27.0-32.0 [facility] Comment on above: Result Comment: Canc elled via OM: Order cancelled - Patient discharged Performed By: #### L 100.0100, L500.2500 ####[facility] [address] [place], [address] MCHC Normal 32-36 [facility] Comment on above: Result Comment: Canc elled via OM: Order cancelled - Patient discharged Performed By: #### L 100.0100, L500.2500 ####[facility] [address] [place], [address] MCV Normal 80-94 [facility] Comment on above: Result Comment: Canc elled via OM: Order cancelled - Patient discharged Performed By: #### L 100.0100, L500.2500 ####[facility] [address] [place], [address] NEUT% Normal 47-70 [facility] Comment on above: Result Comment: Canc elled via OM: Order cancelled - Patient discharged Performed By: #### L 100.0100, L500.2500 ####[facility] [address] [place], [address] PLT Normal 150-450 [facility] Comment on above: Result Comment: Canc elled via OM: Order cancelled - Patient discharged Performed By: #### L 100.0100, L500.2500 ####[facility] [address] [place], [address] RBC Normal 4.6-6.2 [facility] Comment on above: Result Comment: Canc elled via OM: Order cancelled - Patient discharged Performed By: #### L 100.0100, L500.2500 ####[facility] [address] [place], [address] RDW CV Normal 11.6-14.6 [facility] Comment on above: Result Comment: Canc elled via OM: Order cancelled - Patient discharged Performed By: #### L 100.0100, L500.2500 ####[facility] [address] [place], [address] RDW SD Normal 35.1-43.9 [facility] Comment on above: Result Comment: Canc elled via OM: Order cancelled - Patient discharged Performed By: #### L 100.0100, L500.2500 ####[facility] [address] [place], [address] WBC Normal 4.4-11.0 [facility] Comment on above: Result Comment: Canc elled via OM: Order cancelled - Patient discharged Performed By: #### L 100.0100, L500.2500 ####[facility] [address] [place], [address] Neurology Visit Reporton Neurology Visit Report Normal [facility] Basic Metabolic Profile (BMP )on 09-30-2023 BUN Normal 7-18 [facility] Comment on above: Result Comment: Canc elled via OM: Order cancelled - Patient discharged Performed By: #### L 500.2500, L100.0100 ####[facility] [address] [place], [address] BUN/CRE Normal 10-20 [facility] Comment on above: Result Comment: Canc elled via OM: Order cancelled - Patient discharged Performed By: #### L 500.2500, L100.0100 ####[facility] [address] [place], [address] CA,Total Normal 8.5-10.1 [facility] Comment on above: Result Comment: Canc elled via OM: Order cancelled - Patient discharged Performed By: #### L 500.2500, L100.0100 ####[facility] [address] [place], [address] CL Normal 98-107 [facility] Comment on above: Result Comment: Canc elled via OM: Order cancelled - Patient discharged Performed By: #### L 500.2500, L100.0100 ####[facility] [address] [place], [address] CO2 Normal 21.0-32.0 [facility] Comment on above: Result Comment: Canc elled via OM: Order cancelled - Patient discharged Performed By: #### L 500.2500, L100.0100 ####[facility] [address] [place], [address] CREAT,SERUM Normal 0.70-1.30 [facility] Comment on above: Result Comment: Canc elled via OM: Order cancelled - Patient discharged Performed By: #### L 500.2500, L100.0100 ####[facility] [address] [place], [address] EST GFR Normal >60 [facility] Comment on above: Result Comment: Canc elled via OM: Order cancelled - Patient discharged Performed By: #### L 500.2500, L100.0100 ####[facility] [address] [place], [address] EST GFR - AA Normal >60 [facility] Comment on above: Result Comment: Canc elled via OM: Order cancelled - Patient discharged Performed By: #### L 500.2500, L100.0100 ####[facility] [address], [address] GAP Normal 5-15 [facility] Comment on above: Result Comment: Canc elled via OM: Order cancelled - Patient discharged Performed By: #### L 500.2500, L100.0100 ####[facility] [address] [place], [address] GLU Normal 74-106 [facility] Comment on above: Result Comment: Canc elled via OM: Order cancelled - Patient discharged Performed By: #### L 500.2500, L100.0100 ####[facility] [address] [place], [address] Potassium Normal 3.5-5.1 [facility] Comment on above: Result Comment: Canc elled via OM: Order cancelled - Patient discharged Performed By: #### L 500.2500, L100.0100 ####[facility] [address] [place], [address] Basic Metabolic Profile (BMP) Normal 136-145 [facility] Comment on above: Result Comment: Canc elled via OM: Order cancelled - Patient discharged Performed By: #### L 500.2500, L100.0100 ####[facility] [address] [place], [address] CBC W/Diff, Automatedon - Absolute Neut Normal 2.0-7.7 [facility] Comment on above: Result Comment: Canc elled via OM: Order cancelled - Patient discharged Performed By: #### L 500.2500, L100.0100 ####[facility] [address] [place], [address] HCT Normal 40-54 [facility] Comment on above: Result Comment: Canc elled via OM: Order cancelled - Patient discharged Performed By: #### L 500.2500, L100.0100 ####[facility] [address] [place], [address] HGB Normal 13.0-16.5 [facility] Comment on above: Result Comment: Canc elled via OM: Order cancelled - Patient discharged Performed By: #### L 500.2500, L100.0100 ####[facility] [address] [place], [address] MCH Normal 27.0-32.0 [facility] Comment on above: Result Comment: Canc elled via OM: Order cancelled - Patient discharged Performed By: #### L 500.2500, L100.0100 ####[facility] [address] [place], [address] MCHC Normal 32-36 [facility] Comment on above: Result Comment: Canc elled via OM: Order cancelled - Patient discharged Performed By: #### L 500.2500, L100.0100 ####[facility] [address] [place], [address] MCV Normal 80-94 [facility] Comment on above: Result Comment: Canc elled via OM: Order cancelled - Patient discharged Performed By: #### L 500.2500, L100.0100 ####[facility] [address] [place], [address] NEUT% Normal 47-70 [facility] Comment on above: Result Comment: Canc elled via OM: Order cancelled - Patient discharged Performed By: #### L 500.2500, L100.0100 ####[facility] [address] [place], [address] PLT Normal 150-450 [facility] Comment on above: Result Comment: Canc elled via OM: Order cancelled - Patient discharged Performed By: #### L 500.2500, L100.0100 ####[facility] [address] [place], [address] RBC Normal 4.6-6.2 [facility] Comment on above: Result Comment: Canc elled via OM: Order cancelled - Patient discharged Performed By: #### L 500.2500, L100.0100 ####[facility] [address] [place], [address] RDW CV Normal 11.6-14.6 [facility] Comment on above: Result Comment: Canc elled via OM: Order cancelled - Patient discharged Performed By: #### L 500.2500, L100.0100 ####[facility] [address] [place], [address] RDW SD Normal 35.1-43.9 [facility] Comment on above: Result Comment: Canc elled via OM: Order cancelled - Patient discharged Performed By: #### L 500.2500, L100.0100 ####[facility] [address] [place], [address] WBC Normal 4.4-11.0 [facility] Comment on above: Result Comment: Canc elled via OM: Order cancelled - Patient discharged Performed By: #### L 500.2500, L100.0100 ####[facility] [address] [place], [address] Basic Metabolic Profile (BMP )on 09-23-2023 BUN Normal 7-18 [facility] Comment on above: Result Comment: Canc elled via OM: Order cancelled - Patient discharged Performed By: #### L 500.2500, L100.0100 ####[facility] [address] [place], [address] BUN/CRE Normal 10-20 [facility] Comment on above: Result Comment: Canc elled via OM: Order cancelled - Patient discharged Performed By: #### L 500.2500, L100.0100 ####[facility] [address] [place], [address] CA,Total Normal 8.5-10.1 [facility] Comment on above: Result Comment: Canc elled via OM: Order cancelled - Patient discharged Performed By: #### L 500.2500, L100.0100 ####[facility] [address] [place], [address] CL Normal 98-107 [facility] Comment on above: Result Comment: Canc elled via OM: Order cancelled - Patient discharged Performed By: #### L 500.2500, L100.0100 ####[facility] [address], [address] CO2 Normal 21.0-32.0 [facility] Comment on above: Result Comment: Canc elled via OM: Order cancelled - Patient discharged Performed By: #### L 500.2500, L100.0100 ####[facility] [address] [place], [address] CREAT,SERUM Normal 0.70-1.30 [facility] Comment on above: Result Comment: Canc elled via OM: Order cancelled - Patient discharged Performed By: #### L 500.2500, L100.0100 ####[facility] [address] [place], [address] EST GFR Normal >60 [facility] Comment on above: Result Comment: Canc elled via OM: Order cancelled - Patient discharged Performed By: #### L 500.2500, L100.0100 ####[facility] [address] [place], [address] EST GFR - AA Normal >60 [facility] Comment on above: Result Comment: Canc elled via OM: Order cancelled - Patient discharged Performed By: #### L 500.2500, L100.0100 ####[facility] [address] [place], [address] GAP Normal 5-15 [facility] Comment on above: Result Comment: Canc elled via OM: Order cancelled - Patient discharged Performed By: #### L 500.2500, L100.0100 ####[facility] [address] [place], [address] GLU Normal 74-106 [facility] Comment on above: Result Comment: Canc elled via OM: Order cancelled - Patient discharged Performed By: #### L 500.2500, L100.0100 ####[facility] [address] [place], [address] Potassium Normal 3.5-5.1 [facility] Comment on above: Result Comment: Canc elled via OM: Order cancelled - Patient discharged Performed By: #### L 500.2500, L100.0100 ####[facility] [address] [place], [address] Basic Metabolic Profile (BMP) Normal 136-145 [facility] Comment on above: Result Comment: Canc elled via OM: Order cancelled - Patient discharged Performed By: #### L 500.2500, L100.0100 ####[facility] [address] [place], [address] CBC W/Diff, Automatedon 08-0 5-2023 Absolute Neut Normal 2.0-7.7 [facility] Comment on above: Result Comment: Canc elled via OM: Order cancelled - Patient discharged Performed By: #### L 500.2500, L100.0100 ####[facility] [facility] [address] [place], [address] HCT Normal 40-54 [facility] Comment on above: Result Comment: Canc elled via OM: Order cancelled - Patient discharged Performed By: #### L 500.2500, L100.0100 ####[facility] [address] [place], [address] HGB Normal 13.0-16.5 [facility] Comment on above: Result Comment: Canc elled via OM: Order cancelled - Patient discharged Performed By: #### L 500.2500, L100.0100 ####[facility] [address] [place], [address] MCH Normal 27.0-32.0 [facility] Comment on above: Result Comment: Canc elled via OM: Order cancelled - Patient discharged Performed By: #### L 500.2500, L100.0100 ####[facility] [address] [place], [address] MCHC Normal 32-36 [facility] Comment on above: Result Comment: Canc elled via OM: Order cancelled - Patient discharged Performed By: #### L 500.2500, L100.0100 ####[facility] [address] [place], [address] MCV Normal 80-94 [facility] Comment on above: Result Comment: Canc elled via OM: Order cancelled - Patient discharged Performed By: #### L 500.2500, L100.0100 ####[facility] [address] [place], [address] NEUT% Normal 47-70 [facility] Comment on above: Result Comment: Canc elled via OM: Order cancelled - Patient discharged Performed By: #### L 500.2500, L100.0100 ####[facility] [address] [place], [address] PLT Normal 150-450 [facility] Comment on above: Result Comment: Canc elled via OM: Order cancelled - Patient discharged Performed By: #### L 500.2500, L100.0100 ####[facility] [address] [place], [address] RBC Normal 4.6-6.2 [facility] Comment on above: Result Comment: Canc elled via OM: Order cancelled - Patient discharged Performed By: #### L 500.2500, L100.0100 ####[facility] [address] [place], [address] RDW CV Normal 11.6-14.6 [facility] Comment on above: Result Comment: Canc elled via OM: Order cancelled - Patient discharged Performed By: #### L 500.2500, L100.0100 ####[facility] [address] [place], [address] RDW SD Normal 35.1-43.9 [facility] Comment on above: Result Comment: Canc elled via OM: Order cancelled - Patient discharged Performed By: #### L 500.2500, L100.0100 ####[facility] [address] [place], [address] WBC Normal 4.4-11.0 [facility] Comment on above: Result Comment: Canc elled via OM: Order cancelled - Patient discharged Performed By: #### L 500.2500, L100.0100 ####[facility] [address] [place], [address] COVID 19 AG RAPID (JAZIEL Anderson)on 09-19-2023 SARS-CoV-2 (COVID-19) RNA YOLY+probe Ql (Unsp spec) Normal [facility] Comment on above: Performed By: #### M 100.505 ####[facility] [address] [place], [address] CBC,PLATELETSon 09-07-2023 Erythrocyte distribution width (RBC) [Ratio] 14.3 % 10.9 - 14.3 % [facility] Hematocrit (Bld) [Volume fraction] 43.1 % 39.6 - 48.8 % [facility] Hemoglobin (Bld) [Mass/Vol] 13.9 g/dL 13.4 - 16.8 g/dL [facility] Interpretation and review of laboratory results Abnormal [facility] MCH (RBC) [Entitic mass] 30.6 pg 26.1 - 33.3 pg [facility] MCHC (RBC) [Mass/Vol] 32.3 g/dL 31.9 - 36.5 g/dL [facility] MCV (RBC) [Entitic vol] 94.9 fL High 79.0 - 94.5 fL [facility] Platelet mean volume (Bld) [Entitic vol] 12.1 fL 8.7 - 12.3 fL [facility] Platelets (Bld) [#/Vol] 130 10*3/uL Low 146 - 337 K/uL [facility] RBC (Bld) [#/Vol] 4.54 10*6/uL [facility] WBC (Bld) [#/Vol] 6.88 10*3/uL 3.73 - 10. 10 K/uL [facility] Hematocrit (Bld) [Volume fraction] 43.1 % Normal 39.6-48.8 [facility] Comment on above: Performed By: #### [facility] #### [facility] (DEFAULT) [address] [address] Hemoglobin (Bld) [Mass/Vol] 13.9 g/dL Normal 13.4-16.8 [facility] Comment on above: Performed By: #### H [facility] #### [facility] (DEFAULT) [address] [address] MCV (RBC) [Entitic vol] 94.9 fL High 79.0-94.5 [facility] Comment on above: Performed By: #### H EMOGC #### [facility] (DEFAULT) [address] [place] [address] Mean Cell Hgb 30.6 pg Normal 26.1-33.3 [facility] Comment on above: Performed By: #### H EMOGC #### [facility] (DEFAULT) [address] [address] Mean Cell Hgb Conc 32.3 g/dL Normal 31.9-36.5 [facility] Comment on above: Performed By: #### H EMOGC #### [facility] (DEFAULT) [address] [place] [address] Platelet mean volume (Bld) [Entitic vol] 12.1 fL Normal 8.7-12.3 [facility] Comment on above: Performed By: #### H EMOGC #### [facility] (DEFAULT) [address] [place] [address] Platelets (Bld) [#/Vol] 130 10*3/uL Low 146-337 [facility] Comment on above: Performed By: #### H EMOGC #### [facility] (DEFAULT) [address] [place] [address] RBC (Bld) [#/Vol] 4.54 10*6/uL Normal 4.38-5.83 [facility] Comment on above: Performed By: #### H EMOGC #### [facility] (DEFAULT) [address] [place] [address] RBC Distribution 14.3 % Normal 10.9-14.3 [facility] Comment on above: Performed By: #### H EMOGC #### [facility] (DEFAULT) [address] [place] [address] WBC (Bld) [#/Vol] 6.88 10*3/uL Normal 3.73-10.10 [facility] Comment on above: Performed By: #### H EMOGC #### [facility] (DEFAULT) [address] [place] [address] CHEM 7 (LYTES,BUN,CREA,GLUC) on 09-07-2023 Anion gap [Moles/Vol] 14 mmol/L 7 - 17 mmol/L [facility] Chloride [Moles/Vol] 101 mmol/L 98 - 10 8 mmol/L [facility] CO2 [Moles/Vol] 29 mmol/L 21 - 31 mmol/L [facility] Creatinine [Mass/Vol] 1.07 mg/dL 0.70 - 1.30 mg/dL [facility] eGFR, CKD-EPI, Male 75 - PINF [facility] Comment on above: Reported eGFR is bas ed on the CKD-EPI 2020 equation using creatinine, age, and sex. Glucose [Mass/Vol] 110 mg/dL High 70 - 99 mg/dL [facility] Interpretation and review of laboratory results Abnormal [facility] Osmolality Calc [Osmolality] 294 [facility] Potassium [Moles/Vol] 3.7 mmol/L 3.5 - 5.0 mmol/L [facility] Sodium [Moles/Vol] 140 mmol/L 135 - 145 mmol/L [facility] Urea nitrogen [Mass/Vol] 16 mg/dL 7 - 25 mg/dL [facility] Urea nitrogen/Creatinine [Mass ratio] 15 mg/mg [facility] Anion gap [Moles/Vol] 14 mmol/L Normal 7-17 [facility] Comment on above: Performed By: #### C HM7 #### [facility] (DEFAULT) [address] [address] Chloride [Moles/Vol] 101 mmol/L Normal 98-108 [facility] Comment on above: Performed By: #### C HM7 #### [facility] (DEFAULT) [address] [address] CO2 [Moles/Vol] 29 mmol/L Normal 21-31 [facility] Comment on above: Performed By: #### C HM7 #### [facility] (DEFAULT) [address] [address] Creatinine [Mass/Vol] 1.07 mg/dL Normal 0.70-1.30 [facility] Comment on above: Performed By: #### C HM7 #### [facility] (DEFAULT) [address] [address] GFR/1.73 sq M.predicted among non-blacks MDRD (S/P/Bld) [Vol rate/Area] 77 mL/min/{1.73_m2} Normal >=60 [facility] Comment on above: Result Comment: Repo rted eGFR is based on the CKD-EPI 2020 equation using creatinine, age, and sex. Performed By: #### C HM7 #### [facility] (DEFAULT) [address] [place] [address] Glucose [Mass/Vol] 110 mg/dL High 70-99 [facility] Comment on above: Performed By: #### C HM7 #### [facility] (DEFAULT) [address] [place] [address] Osmolality [Osmolality] 294 mosm/kg Normal 278-305 [facility] Comment on above: Performed By: #### C HM7 #### [facility] (DEFAULT) [address] [place] [address] Potassium [Moles/Vol] 3.7 mmol/L Normal 3.5-5.0 [facility] Comment on above: Performed By: #### C HM7 #### [facility] (DEFAULT) [address] [place] [address] Sodium [Moles/Vol] 140 mmol/L Normal 135-145 [facility] Comment on above: Performed By: #### C HM7 #### [facility] (DEFAULT) [address] [address] Urea nitrogen [Mass/Vol] 16 mg/dL Normal 7-25 [facility] Comment on above: Performed By: #### C HM7 #### [facility] (DEFAULT) [address] [place] [address] Urea nitrogen/Creatinine [Mass ratio] 15 mg/mg Normal [facility] Comment on above: Performed By: #### C HM7 #### [facility] (DEFAULT) [address] [place] [address] CBC,PLATELETSon 09-06-2023 Erythrocyte distribution width (RBC) [Ratio] 14.4 % High 10.9 - 14.3 % [facility] Hematocrit (Bld) [Volume fraction] 43.0 % 39.6 - 48.8 % [facility] Hemoglobin (Bld) [Mass/Vol] 14.1 g/dL 13.4 - 16.8 g/dL [facility] Interpretation and review of laboratory results Abnormal [facility] MCH (RBC) [Entitic mass] 31.0 pg 26.1 - 33.3 pg [facility] MCHC (RBC) [Mass/Vol] 32.8 g/dL 31.9 - 36.5 g/dL [facility] MCV (RBC) [Entitic vol] 94.5 fL 79.0 - 94.5 fL [facility] Platelet mean volume (Bld) [Entitic vol] [facility] Comment on above: Not measured Platelets (Bld) [#/Vol] 137 10*3/uL Low 146 - 337 K/uL [facility] RBC (Bld) [#/Vol] 4.55 10*6/uL [facility] WBC (Bld) [#/Vol] 7.62 10*3/uL 3.73 - 10. 10 K/uL [facility] Hematocrit (Bld) [Volume fraction] 43.0 % Normal 39.6-48.8 [facility] Comment on above: Performed By: #### H [facility] #### [facility] (DEFAULT) [address] [place] [address] Hemoglobin (Bld) [Mass/Vol] 14.1 g/dL Normal 13.4-16.8 [facility] Comment on above: Performed By: #### H [facility] #### [facility] (DEFAULT) [address] [place] [address] MCV (RBC) [Entitic vol] 94.5 fL Normal 79.0-94.5 [facility] Comment on above: Performed By: #### H [facility] #### [facility] (DEFAULT) [address] [place] [address] Mean Cell Hgb 31.0 pg Normal 26.1-33.3 [facility] Comment on above: Performed By: #### H EMOGC #### [facility] (DEFAULT) [address] [address] Mean Cell Hgb Conc 32.8 g/dL Normal 31.9-36.5 [facility] Comment on above: Performed By: #### H EMOGC #### [facility] (DEFAULT) [address] [address] Mean Platelet Volume Normal [facility] Comment on above: Result Comment: Not measured Performed By: #### H EMOGC #### [facility] (DEFAULT) [address] [address] Platelets (Bld) [#/Vol] 137 10*3/uL Low 146-337 [facility] Comment on above: Performed By: #### H EMOGC #### [facility] (DEFAULT) [address] [address] RBC (Bld) [#/Vol] 4.55 10*6/uL Normal 4.38-5.83 [facility] Comment on above: Performed By: #### H EMOGC #### [facility] (DEFAULT) [address] [address] RBC Distribution 14.4 % High 10.9-14.3 [facility] Comment on above: Performed By: #### H EMOGC #### [facility] (DEFAULT) [address] [address] WBC (Bld) [#/Vol] 7.62 10*3/uL Normal 3.73-10.10 [facility] Comment on above: Performed By: #### H EMOGC #### [facility] (DEFAULT) [address] [address] CHEM 7 (LYTES,BUN,CREA,GLUC) on 09-06-2023 Anion gap [Moles/Vol] 15 mmol/L 7 - 17 mmol/L [facility] Chloride [Moles/Vol] 102 mmol/L 98 - 10 8 mmol/L [facility] CO2 [Moles/Vol] 27 mmol/L 21 - 31 mmol/L [facility] Creatinine [Mass/Vol] 1.07 mg/dL 0.70 - 1.30 mg/dL [facility] eGFR, CKD-EPI, Male 75 - PINF [facility] Comment on above: Reported eGFR is bas ed on the CKD-EPI 2020 equation using creatinine, age, and sex. Glucose [Mass/Vol] 68 mg/dL Low 70 - 99 mg/dL [facility] Interpretation and review of laboratory results Abnormal [facility] Osmolality Calc [Osmolality] 292 [facility] Potassium [Moles/Vol] 4.0 mmol/L 3.5 - 5.0 mmol/L [facility] Comment on above: Specimen hemolyzed. Potassium results may be falsely elevated masking hypokalemia. Interpret within the clinical context. Sodium [Moles/Vol] 140 mmol/L 135 - 145 mmol/L [facility] Urea nitrogen [Mass/Vol] 16 mg/dL 7 - 25 mg/dL [facility] Urea nitrogen/Creatinine [Mass ratio] 15 mg/mg [facility] Anion gap [Moles/Vol] 15 mmol/L Normal 7-17 [facility] Comment on above: Performed By: #### C HM7 #### [facility] (DEFAULT) [address] [place] [address] Chloride [Moles/Vol] 102 mmol/L Normal 98-108 [facility] Comment on above: Performed By: #### C HM7 #### [facility] (DEFAULT) [address] [place] [address] CO2 [Moles/Vol] 27 mmol/L Normal 21-31 [facility] Comment on above: Performed By: #### C HM7 #### [facility] (DEFAULT) [address] [place] [address] Creatinine [Mass/Vol] 1.07 mg/dL Normal 0.70-1.30 [facility] Comment on above: Performed By: #### C HM7 #### [facility] (DEFAULT) [address] [address] GFR/1.73 sq M.predicted among non-blacks MDRD (S/P/Bld) [Vol rate/Area] 77 mL/min/{1.73_m2} Normal >=60 [facility] Comment on above: Result Comment: Repo rted eGFR is based on the CKD-EPI 2020 equation using creatinine, age, and sex. Performed By: #### C HM7 #### [facility] (DEFAULT) [address] [address] Glucose [Mass/Vol] 68 mg/dL Low 70-99 [facility] Comment on above: Performed By: #### C HM7 #### [facility] (DEFAULT) [address] [address] Osmolality [Osmolality] 292 mosm/kg Normal 278-305 [facility] Comment on above: Performed By: #### C HM7 #### [facility] (DEFAULT) [address] [address] Potassium [Moles/Vol] 4.0 mmol/L Normal 3.5-5.0 [facility] Comment on above: Result Comment: Spec imen hemolyzed. Potassium results may be falsely elevated masking hypokalemia. Interpret within the clinical context. Performed By: #### C HM7 #### [facility] (DEFAULT) [address] [address] Sodium [Moles/Vol] 140 mmol/L Normal 135-145 [facility] Comment on above: Performed By: #### C HM7 #### [facility] (DEFAULT) [address] [address] Urea nitrogen [Mass/Vol] 16 mg/dL Normal 7-25 [facility] Comment on above: Performed By: #### C HM7 #### [facility] (DEFAULT) [address] [place] [address] Urea nitrogen/Creatinine [Mass ratio] 15 mg/mg Normal [facility] Comment on above: Performed By: #### C HM7 #### [facility] (DEFAULT) [address] [place] [address] GLUCOSE POCon 09-06-2023 Glucose [Mass/Vol] 98 mg/dL 70 - 99 mg/dL [facility] POC Sample Type CAPBL [facility] Test performed at address of the patient encounter. [facility] CBC,PLATELETSon 09-05-2023 Erythrocyte distribution width (RBC) [Ratio] 14.6 % High 10.9 - 14.3 % [facility] Hematocrit (Bld) [Volume fraction] 40.7 % 39.6 - 48.8 % [facility] Hemoglobin (Bld) [Mass/Vol] 13.5 g/dL 13.4 - 16.8 g/dL [facility] Interpretation and review of laboratory results Abnormal [facility] MCH (RBC) [Entitic mass] 31.4 pg 26.1 - 33.3 pg [facility] MCHC (RBC) [Mass/Vol] 33.2 g/dL 31.9 - 36.5 g/dL [facility] MCV (RBC) [Entitic vol] 94.7 fL High 79.0 - 94.5 fL [facility] Platelet mean volume (Bld) [Entitic vol] 12.0 fL 8.7 - 12.3 fL [facility] Platelets (Bld) [#/Vol] 130 10*3/uL Low 146 - 337 K/uL [facility] RBC (Bld) [#/Vol] 4.30 10*6/uL Low [facility] WBC (Bld) [#/Vol] 8.06 10*3/uL 3.73 - 10. 10 K/uL [facility] Hematocrit (Bld) [Volume fraction] 40.7 % Normal 39.6-48.8 [facility] Comment on above: Performed By: #### H EMOGC #### [facility] (DEFAULT) [address] [address] Hemoglobin (Bld) [Mass/Vol] 13.5 g/dL Normal 13.4-16.8 [facility] Comment on above: Performed By: #### H EMOGC #### [facility] (DEFAULT) [address] [address] MCV (RBC) [Entitic vol] 94.7 fL High 79.0-94.5 [facility] Comment on above: Performed By: #### H EMOGC #### [facility] (DEFAULT) [address] [address] Mean Cell Hgb 31.4 pg Normal 26.1-33.3 [facility] Comment on above: Performed By: #### H EMOGC #### [facility] (DEFAULT) [address] [address] Mean Cell Hgb Conc 33.2 g/dL Normal 31.9-36.5 [facility] Comment on above: Performed By: #### H EMOGC #### [facility] (DEFAULT) [address] [address] Platelet mean volume (Bld) [Entitic vol] 12.0 fL Normal 8.7-12.3 [facility] Comment on above: Performed By: #### H EMOGC #### [facility] (DEFAULT) [address] [address] Platelets (Bld) [#/Vol] 130 10*3/uL Low 146-337 [facility] Comment on above: Performed By: #### H EMOGC #### [facility] (DEFAULT) [address] [address] RBC (Bld) [#/Vol] 4.30 10*6/uL Low 4.38-5.83 [facility] Comment on above: Performed By: #### H EMOGC #### [facility] (DEFAULT) [address] [place] [address] RBC Distribution 14.6 % High 10.9-14.3 [facility] Comment on above: Performed By: #### H [facility] #### [facility] (DEFAULT) [address] [place] [address] WBC (Bld) [#/Vol] 8.06 10*3/uL Normal 3.73-10.10 [facility] Comment on above: Performed By: #### H [facility] #### [facility] (DEFAULT) [address] [place] [address] CHEM 7 (LYTES,BUN,CREA,GLUC) on 09-05-2023 Anion gap [Moles/Vol] 12 mmol/L 7 - 17 mmol/L [facility] Chloride [Moles/Vol] 105 mmol/L 98 - 10 8 mmol/L [facility] CO2 [Moles/Vol] 26 mmol/L 21 - 31 mmol/L [facility] Creatinine [Mass/Vol] 0.98 mg/dL 0.70 - 1.30 mg/dL [facility] eGFR, CKD-EPI, Male 84 - PINF [facility] Comment on above: Reported eGFR is bas ed on the CKD-EPI 2020 equation using creatinine, age, and sex. Glucose [Mass/Vol] 95 mg/dL 70 - 99 mg/dL [facility] Osmolality Calc [Osmolality] 292 [facility] Potassium [Moles/Vol] 3.6 mmol/L 3.5 - 5.0 mmol/L [facility] Sodium [Moles/Vol] 139 mmol/L 135 - 145 mmol/L [facility] Urea nitrogen [Mass/Vol] 20 mg/dL 7 - 25 mg/dL [facility] Urea nitrogen/Creatinine [Mass ratio] 20 mg/mg [facility] Anion gap [Moles/Vol] 12 mmol/L Normal 7-17 [facility] Comment on above: Performed By: #### C HM7 #### [facility] (DEFAULT) [address] [place] [address] Chloride [Moles/Vol] 105 mmol/L Normal 98-108 [facility] Comment on above: Performed By: #### C HM7 #### [facility] (DEFAULT) [address] [place] [address] CO2 [Moles/Vol] 26 mmol/L Normal 21-31 [facility] Comment on above: Performed By: #### C HM7 #### [facility] (DEFAULT) [address] [place] [address] Creatinine [Mass/Vol] 0.98 mg/dL Normal 0.70-1.30 [facility] Comment on above: Performed By: #### C HM7 #### [facility] (DEFAULT) [address] [place] [address] GFR/1.73 sq M.predicted among non-blacks MDRD (S/P/Bld) [Vol rate/Area] 86 mL/min/{1.73_m2} Normal >=60 [facility] Comment on above: Result Comment: Repo rted eGFR is based on the CKD-EPI 2020 equation using creatinine, age, and sex. Performed By: #### C HM7 #### [facility] (DEFAULT) [address] [place] [address] Glucose [Mass/Vol] 95 mg/dL Normal 70-99 [facility] Comment on above: Performed By: #### C HM7 #### [facility] (DEFAULT) [address] [place] [address] Osmolality [Osmolality] 292 mosm/kg Normal 278-305 [facility] Comment on above: Performed By: #### C HM7 #### [facility] (DEFAULT) [address] [place] [address] Potassium [Moles/Vol] 3.6 mmol/L Normal 3.5-5.0 [facility] Comment on above: Performed By: #### C HM7 #### [facility] (DEFAULT) [address] [place] [address] Sodium [Moles/Vol] 139 mmol/L Normal 135-145 [facility] Comment on above: Performed By: #### C HM7 #### [facility] (DEFAULT) [address] [place] [address] Urea nitrogen [Mass/Vol] 20 mg/dL Normal 7-25 [facility] Comment on above: Performed By: #### C HM7 #### [facility] (DEFAULT) [address] [place] [address] Urea nitrogen/Creatinine [Mass ratio] 20 mg/mg Normal [facility] Comment on above: Performed By: #### C HM7 #### [facility] (DEFAULT) [address] [place] [address] CBC,PLATELETSon 09-04-2023 Erythrocyte distribution width (RBC) [Ratio] 14.2 % 10.9 - 14.3 % [facility] Hematocrit (Bld) [Volume fraction] 49.3 % High 39.6 - 48.8 % [facility] Hemoglobin (Bld) [Mass/Vol] 15.9 g/dL 13.4 - 16.8 g/dL [facility] Interpretation and review of laboratory results Abnormal [facility] MCH (RBC) [Entitic mass] 30.8 pg 26.1 - 33.3 pg [facility] MCHC (RBC) [Mass/Vol] 32.3 g/dL 31.9 - 36.5 g/dL [facility] MCV (RBC) [Entitic vol] 95.4 fL High 79.0 - 94.5 fL [facility] Platelet mean volume (Bld) [Entitic vol] 12.2 fL 8.7 - 12.3 fL [facility] Platelets (Bld) [#/Vol] 148 10*3/uL 146 - 337 K/uL [facility] RBC (Bld) [#/Vol] 5.17 10*6/uL [facility] WBC (Bld) [#/Vol] 9.79 10*3/uL 3.73 - 10. 10 K/uL [facility] Hematocrit (Bld) [Volume fraction] 49.3 % High 39.6-48.8 [facility] Comment on above: Performed By: #### H EMOGC #### [facility] (DEFAULT) [address] [address] Hemoglobin (Bld) [Mass/Vol] 15.9 g/dL Normal 13.4-16.8 [facility] Comment on above: Performed By: #### H EMOGC #### [facility] (DEFAULT) [address] [address] MCV (RBC) [Entitic vol] 95.4 fL High 79.0-94.5 [facility] Comment on above: Performed By: #### H EMOGC #### [facility] (DEFAULT) [address] [address] Mean Cell Hgb 30.8 pg Normal 26.1-33.3 [facility] Comment on above: Performed By: #### H EMOGC #### [facility] (DEFAULT) [address] [address] Mean Cell Hgb Conc 32.3 g/dL Normal 31.9-36.5 [facility] Comment on above: Performed By: #### H EMOGC #### [facility] (DEFAULT) [address] [address] Platelet mean volume (Bld) [Entitic vol] 12.2 fL Normal 8.7-12.3 [facility] Comment on above: Performed By: #### H EMOGC #### [facility] (DEFAULT) [address] [address] Platelets (Bld) [#/Vol] 148 10*3/uL Normal 146-337 [facility] Comment on above: Performed By: #### H [facility] #### [facility] (DEFAULT) [address] [place] [address] RBC (Bld) [#/Vol] 5.17 10*6/uL Normal 4.38-5.83 [facility] Comment on above: Performed By: #### H EMO #### [facility] (DEFAULT) [address] [place] [address] RBC Distribution 14.2 % Normal 10.9-14.3 [facility] Comment on above: Performed By: #### H [facility] #### [facility] (DEFAULT) [address] [place] [address] WBC (Bld) [#/Vol] 9.79 10*3/uL Normal 3.73-10.10 [facility] Comment on above: Performed By: #### H [facility] #### [facility] (DEFAULT) [address] [place] [address] [id number] CHEM 7 (LYTES,BUN,CREA,GLUC) Ordered By: Homar Scott on 09-04-2023 Anion gap [Moles/Vol] 17 mmol/L 7 - 17 mmol/L [facility] Chloride [Moles/Vol] 101 mmol/L 98 - 10 8 mmol/L [facility] CO2 [Moles/Vol] 27 mmol/L 21 - 31 mmol/L [facility] Creatinine [Mass/Vol] 0.97 mg/dL 0.70 - 1.30 mg/dL [facility] eGFR, CKD-EPI, Male 87 - PINF [facility] Comment on above: Reported eGFR is bas ed on the CKD-EPI 2020 equation using creatinine, age, and sex. Glucose [Mass/Vol] 98 mg/dL 70 - 99 mg/dL [facility] Osmolality Calc [Osmolality] 295 [facility] Potassium [Moles/Vol] 3.7 mmol/L 3.5 - 5.0 mmol/L [facility] Sodium [Moles/Vol] 141 mmol/L 135 - 145 mmol/L [facility] Urea nitrogen [Mass/Vol] 17 mg/dL 7 - 25 mg/dL [facility] Urea nitrogen/Creatinine [Mass ratio] 18 mg/mg [facility] CHEM 7 (LYTES,BUN,CREA,GLUC) on 09-04-2023 Anion gap [Moles/Vol] 17 mmol/L Normal 7-17 [facility] Comment on above: Performed By: #### C HM7 #### [facility] (DEFAULT) [address] [place] [address] 64846 Chloride [Moles/Vol] 101 mmol/L Normal 98-108 [facility] Comment on above: Performed By: #### C HM7 #### [facility] (DEFAULT) [address] [place] [address] 70752 CO2 [Moles/Vol] 27 mmol/L Normal 21-31 [facility] Comment on above: Performed By: #### C HM7 #### [facility] (DEFAULT) [address] [place] [address] 40695 Creatinine [Mass/Vol] 0.97 mg/dL Normal 0.70-1.30 [facility] Comment on above: Performed By: #### C HM7 #### [facility] (DEFAULT) [address] [place] [address] 41365 GFR/1.73 sq M.predicted among non-blacks MDRD (S/P/Bld) [Vol rate/Area] 87 mL/min/{1.73_m2} Normal >=60 [facility] Comment on above: Result Comment: Repo rted eGFR is based on the CKD-EPI 2020 equation using creatinine, age, and sex. Performed By: #### C HM7 #### [facility] (DEFAULT) [address] [place] [address] 61545 Glucose [Mass/Vol] 98 mg/dL Normal 70-99 [facility] Comment on above: Performed By: #### C HM7 #### [facility] (DEFAULT) [address] [place] [address] 72630 Osmolality [Osmolality] 295 mosm/kg Normal 278-305 [facility] Comment on above: Performed By: #### C HM7 #### [facility] (DEFAULT) [address] [place] [address] Potassium [Moles/Vol] 3.7 mmol/L Normal 3.5-5.0 [facility] Comment on above: Performed By: #### C HM7 #### [facility] (DEFAULT) [address] [place] [address] 02513 Sodium [Moles/Vol] 141 mmol/L Normal 135-145 [facility] Comment on above: Performed By: #### C HM7 #### [facility] (DEFAULT) [address] [place] [address] 56655 Urea nitrogen [Mass/Vol] 17 mg/dL Normal 7-25 [facility] Comment on above: Performed By: #### C HM7 #### [facility] (DEFAULT) [address] [place] [address] 46535 Urea nitrogen/Creatinine [Mass ratio] 18 mg/mg Normal [facility] Comment on above: Performed By: #### C HM7 #### [facility] (DEFAULT) [address] [place] [address] 90487 CBC,PLATELETSon 09-03-2023 Erythrocyte distribution width (RBC) [Ratio] 14.2 % 10.9 - 14.3 % [facility] Hematocrit (Bld) [Volume fraction] 46.8 % 39.6 - 48.8 % [facility] Hemoglobin (Bld) [Mass/Vol] 14.9 g/dL 13.4 - 16.8 g/dL [facility] Interpretation and review of laboratory results Abnormal [facility] MCH (RBC) [Entitic mass] 30.3 pg 26.1 - 33.3 pg [facility] MCHC (RBC) [Mass/Vol] 31.8 g/dL Low 31.9 - 36.5 g/dL [facility] MCV (RBC) [Entitic vol] 95.3 fL High 79.0 - 94.5 fL [facility] Platelet mean volume (Bld) [Entitic vol] 12.0 fL 8.7 - 12.3 fL [facility] Platelets (Bld) [#/Vol] 137 10*3/uL Low 146 - 337 K/uL [facility] RBC (Bld) [#/Vol] 4.91 10*6/uL [facility] WBC (Bld) [#/Vol] 10.04 10*3/uL 3.73 - 10 .10 K/uL [facility] Hematocrit (Bld) [Volume fraction] 46.8 % Normal 39.6-48.8 [facility] Comment on above: Performed By: #### H EMO #### [facility] (DEFAULT) [address] [address] Hemoglobin (Bld) [Mass/Vol] 14.9 g/dL Normal 13.4-16.8 [facility] Comment on above: Performed By: #### H EMO #### [facility] (DEFAULT) [address] [address] MCV (RBC) [Entitic vol] 95.3 fL High 79.0-94.5 [facility] Comment on above: Performed By: #### H EMOGC #### [facility] (DEFAULT) [address] [place] [address] 00775 Mean Cell Hgb 30.3 pg Normal 26.1-33.3 [facility] Comment on above: Performed By: #### H EMOGC #### [facility] (DEFAULT) [address] [address] Mean Cell Hgb Conc 31.8 g/dL Low 31.9-36.5 [facility] Comment on above: Performed By: #### H EMOGC #### [facility] (DEFAULT) [address] [place] [address] 87751 Platelet mean volume (Bld) [Entitic vol] 12.0 fL Normal 8.7-12.3 [facility] Comment on above: Performed By: #### H EMO #### [facility] (DEFAULT) [address] [place] [address] 59577 Platelets (Bld) [#/Vol] 137 10*3/uL Low 146-337 [facility] Comment on above: Performed By: #### H EMO #### [facility] (DEFAULT) [address] [place] [address] 23292 RBC (Bld) [#/Vol] 4.91 10*6/uL Normal 4.38-5.83 [facility] Comment on above: Performed By: #### H EMO #### [facility] (DEFAULT) [address] [place] [address] 64413 RBC Distribution 14.2 % Normal 10.9-14.3 [facility] Comment on above: Performed By: #### H EMO #### [facility] (DEFAULT) [address] [place] [address] 68598 WBC (Bld) [#/Vol] 10.04 10*3/uL Normal 3.73-10.10 [facility] Comment on above: Performed By: #### H EMO #### [facility] (DEFAULT) [address] [place] [address] 13087 CHEM 7 (LYTES,BUN,CREA,GLUC) on 09-03-2023 Anion gap [Moles/Vol] 13 mmol/L 7 - 17 mmol/L [facility] Chloride [Moles/Vol] 104 mmol/L 98 - 10 8 mmol/L [facility] CO2 [Moles/Vol] 28 mmol/L 21 - 31 mmol/L [facility] Creatinine [Mass/Vol] 0.89 mg/dL 0.70 - 1.30 mg/dL [facility] eGFR, CKD-EPI, Male - PINF [facility] Comment on above: Reported eGFR is bas ed on the CKD-EPI 2021 equation using creatinine, age, and sex. Glucose [Mass/Vol] 134 mg/dL High 70 - 99 mg/dL [facility] Interpretation and review of laboratory results Abnormal [facility] Osmolality Calc [Osmolality] 298 [facility] Potassium [Moles/Vol] 4.7 mmol/L 3.5 - 5.0 mmol/L [facility] Sodium [Moles/Vol] 140 mmol/L 135 - 145 mmol/L [facility] Urea nitrogen [Mass/Vol] 18 mg/dL 7 - 25 mg/dL [facility] Urea nitrogen/Creatinine [Mass ratio] 20 mg/mg [facility] Anion gap [Moles/Vol] 13 mmol/L Normal 7-17 [facility] Comment on above: Performed By: #### C HM7 #### [facility] (DEFAULT) [address] [place] [address] 67134 Chloride [Moles/Vol] 104 mmol/L Normal 98-108 [facility] Comment on above: Performed By: #### C HM7 #### [facility] (DEFAULT) [address] [place] [address] 29142 CO2 [Moles/Vol] 28 mmol/L Normal 21-31 [facility] Comment on above: Performed By: #### C HM7 #### [facility] (DEFAULT) [address] [place] [address] 65288 Creatinine [Mass/Vol] 0.89 mg/dL Normal 0.70-1.30 [facility] Comment on above: Performed By: #### C HM7 #### [facility] (DEFAULT) [address] [place] [address] 21845 eGFR, CKD-EPI, Male > Normal >=60 [facility] Comment on above: Result Comment: Repo rted eGFR is based on the CKD-EPI 2020 equation using creatinine, age, and sex. Performed By: #### C HM7 #### [facility] (DEFAULT) [address] [place] [address] 79463 Glucose [Mass/Vol] 134 mg/dL High 70-99 [facility] Comment on above: Performed By: #### C HM7 #### [facility] (DEFAULT) [address] [place] [address] 08417 Osmolality [Osmolality] 298 mosm/kg Normal 278-305 [facility] Comment on above: Performed By: #### C HM7 #### [facility] (DEFAULT) [address] [place] [address] 36152 Potassium [Moles/Vol] 4.7 mmol/L Normal 3.5-5.0 [facility] Comment on above: Performed By: #### C HM7 #### [facility] (DEFAULT) [address] [place] [address] 78115 Sodium [Moles/Vol] 140 mmol/L Normal 135-145 [facility] Comment on above: Performed By: #### C HM7 #### [facility] (DEFAULT) [address] [place] [address] 08775 Urea nitrogen [Mass/Vol] 18 mg/dL Normal 7-25 [facility] Comment on above: Performed By: #### C HM7 #### [facility] (DEFAULT) [address] [place] [address] 06740 Urea nitrogen/Creatinine [Mass ratio] 20 mg/mg Normal [facility] Comment on above: Performed By: #### C HM7 #### [facility] (DEFAULT) [address] [place] [address] 88940 CARDIAC RHYTHM (SCANNED)on 0 09-02-2023 [facility] Portable XR Chest Viewson IMPRESSION: New [...] placement of properly positioned tracheostomy tube. [facility] Radiology Study observation (narrative) [facility] Portable XR Chest ViewsOrder ed By: Arlen Eastman on 09-02-2023 [facility] Work Phone: XR CHEST 1 VIEW PORTABLEon [...] placement of properly positioned tracheostomy tube. Normal [facility] Basophil percentageOrdered B y: Brenda Coker on 06-25-2023 Chloride [Moles/Vol] 105 mmol/L 98-107 [facility] Glucose [Mass/Vol] 118 mg/dL 74-106 [facility] Comment on above: Fasting Glucose resu lt from 100 to 125 mg/dL suggests IMPAIRED HOMEOSTASIS per A.D.A. criteria. Potassium [Moles/Vol] 3.9 mmol/L 3.5-5.1 [facility] Sodium [Moles/Vol] 138 mmol/L 136-145 [facility] Laboratory - Chemistry and C hemistry - challengeOrdered By: Brenda Coker on 06-25-2023 CO2 [Moles/Vol] 29.0 mmol/L 21.0-32.0 [facility] Urea nitrogen/Creatinine [Mass ratio] 13.1 mg/mg 10-20 [facility] No Panel InformationOrdered By: Brenda Coker on 06-25-2023 Estimated GFR (MDRD) Amer 71 mL/min >60 [facility] Comment on above: GFR Calc Estimated GFR (MDRD) Non-Af Amer 59 mL/min >60 [facility] Comment on above: Non- GFR Calc Serum or plasma calcium leona urement (mass/volume)Ordered By: Brenda Coker on 06-25-2023 Calcium [Mass/Vol] 9.0 mg/dL 8.5-10.1 [facility] Serum or plasma creatinine m easurement (mass/volume)Ordered By: Brenda Coker on 06-25-2023 Creatinine [Mass/Vol] 1.30 mg/dL 0.70-1.30 [facility] Comment on above: The validity of the calculated GFR & GFRAA in patients over 70 years has not been determined. Clinical correlation is essential. Serum or plasma urea nitroge n measurement (mass/volume)Ordered By: Brenda Coker on 06-25-2023 Urea nitrogen [Mass/Vol] 17 mg/dL 7-18 [facility] Thin prep Papanicolaou smear with manual screeningOrdered By: Brenda Coker on 06-25-2023 Thin prep Papanicolaou smear with manual screening 4 5-15 [facility] Basophil percentageOrdered B y: Gilbert Hoang on 06-18-2023 Bilirubin [Mass/Vol] 1.30 mg/dL 0.20-1.00 [facility] Comment on above: For patients on eltr ombopag therapy, use of Dimension [place] TBIL is not recommended. Chloride [Moles/Vol] 103 mmol/L 98-107 [facility] Glucose [Mass/Vol] 96 mg/dL 74-106 [facility] Potassium [Moles/Vol] 3.3 mmol/L 3.5-5.1 [facility] Protein [Mass/Vol] 7.9 g/dL 6.4-8.2 [facility] Sodium [Moles/Vol] 139 mmol/L 136-145 [facility] Laboratory - Chemistry and C hemistry - challengeOrdered By: Glibert Hoang on 06-18-2023 Albumin/Globulin [Mass ratio] 1.0 {ratio} 0.9-2.4 [facility] ALP [Catalytic activity/Vol] 84 U/L 45-117 [facility] ALT [Catalytic activity/Vol] U/L 16-61 [facility] CO2 [Moles/Vol] 32.0 mmol/L 21.0-32.0 [facility] Globulin (S) [Mass/Vol] 3.9 g/dL 2.2-4.2 [facility] Urea nitrogen/Creatinine [Mass ratio] 13.5 mg/mg 10-20 [facility] No Panel InformationOrdered By: Gilbert Hoang on 06-18-2023 Estimated GFR (MDRD) Amer 92 mL/min >60 [facility] Comment on above: GFR Calc Estimated GFR (MDRD) Non-Af Amer 76 mL/min >60 [facility] Comment on above: Non- GFR Calc Serum or plasma calcium leona urement (mass/volume)Ordered By: Gilbert Hoang on 06-18-2023 Calcium [Mass/Vol] 9.6 mg/dL 8.5-10.1 [facility] Serum or plasma creatinine m easurement (mass/volume)Ordered By: Gilbert Hoang on 06-18-2023 Creatinine [Mass/Vol] 1.04 mg/dL 0.70-1.30 [facility] Comment on above: The validity of the calculated GFR & GFRAA in patients over 70 years has not been determined. Clinical correlation is essential. Serum or plasma urea nitroge n measurement (mass/volume)Ordered By: Gilbert Hoang on 06-18-2023 Urea nitrogen [Mass/Vol] 14 mg/dL 7-18 [facility] Thin prep Papanicolaou smear with manual screeningOrdered By: Gilbert Hoang on 06-18-2023 Thin prep Papanicolaou smear with manual screening 4.0 g/dL 3.2-5.0 [facility] Thin prep Papanicolaou smear with manual screening 15 U/L 15-37 [facility] Thin prep Papanicolaou smear with manual screening 4 5-15 [facility] Gram stain for investigation of transfusion reactionOrdered By: Karen Lora on 05-17-2023 Microscopic observation Gram stain Nom (Unsp spec) [facility] Microbial respiratory cultur eOrdered By: Karen Lora on 05-17-2023 Bacteria identified Respiratory culture Nom (Unsp spec) [facility] Basophil percentageOrdered B y: Karen Lora on 05-16-2023 Chloride [Moles/Vol] 102 mmol/L 98-107 [facility] Glucose [Mass/Vol] 82 mg/dL 74-106 [facility] Potassium [Moles/Vol] 3.3 mmol/L 3.5-5.1 [facility] Sodium [Moles/Vol] 137 mmol/L 136-145 [facility] Laboratory - Chemistry and C hemistry - challengeOrdered By: Karen Lora on 05-16-2023 CO2 [Moles/Vol] 31.0 mmol/L 21.0-32.0 [facility] Natriuretic peptide B (Bld) [Mass/Vol] 90.8 pg/mL 0-100 [facility] Urea nitrogen/Creatinine [Mass ratio] 9.9 mg/mg 10-20 [facility] No Panel InformationOrdered By: Karen Lora on 05-16-2023 D-Dimer Quantitative (PE/DVT) 0.41 FEU/ug/m 0.27-0.49 [facility] Comment on above: NORMAL D-Dimer level (<0.50) indicates no DVT or PE. Estimated GFR (MDRD) Amer 95 mL/min >60 [facility] Comment on above: GFR Calc Estimated GFR (MDRD) Non-Af Amer 79 mL/min >60 [facility] Comment on above: Non- GFR Calc Serum or plasma calcium leona urement (mass/volume)Ordered By: Karen Lora on 05-16-2023 Calcium [Mass/Vol] 9.0 mg/dL 8.5-10.1 [facility] Serum or plasma creatinine m easurement (mass/volume)Ordered By: Karen Lora on 05-16-2023 Creatinine [Mass/Vol] 1.01 mg/dL 0.70-1.30 [facility] Comment on above: The validity of the calculated GFR & GFRAA in patients over 70 years has not been determined. Clinical correlation is essential. Serum or plasma urea nitroge n measurement (mass/volume)Ordered By: Karen Lora on 05-16-2023 Urea nitrogen [Mass/Vol] 10 mg/dL 09-04 [facility] Thin prep Papanicolaou smear with manual screeningOrdered By: Karen Lora on 05-16-2023 Thin prep Papanicolaou smear with manual screening 4 07-02 [facility] Basophil percentageOrdered B y: II Rj Trammell on 05-06-2023 Basophil percentage 0.72 ng/mL 0.0-4.0 [facility] Comment on above: This test was perfor med using the TPSA assay method for the[facility] system. Values obtained with differentassay methods cannot be used interchangably.When changing PSA assays in the course of monitoring apatient, additional sequential testing should be carriedout to confirm baseline values. Basophil percentageon 2023 Cholesterol [Mass/Vol] 99 mg/dL <200 [facility] Comment on above: <200 mg/dL Desirable 200-240 mg/dL Borderline >240 mg/dL High Risk Triglyceride [Mass/Vol] 90 mg/dL <199 [facility] Comment on above: The drugs N-Acetylcy steine and Metamizole may falsely depress this assay.Serum Triglycerides Reference Interval Normal <150 mg/dL Borderline high 150 - 199 mg/dL High 200 - 499 mg/dL Very High > or = 500 mg/dL Laboratory - Chemistry and C hemistry - challengeon 03-28-2023 Cholesterol in HDL [Mass/Vol] 50 mg/dL >40 [facility] Comment on above: The drugs N-Acetylcy steine and Metamizole may falsely depress this assay. Reference Range HDL <40 mg/dL Low HDL Cholesterol HDL >or= 60 mg/dL High HDL Cholesterol Cholesterol in LDL [Mass/Vol] 31 mg/dL 0-130 [facility] No Panel Informationon 03-28 VLDL Cholesterol 18 mg/dL 5-40 [facility] ECG 12-LEADon 03-26-2023 ECG 12-LEAD Ventricular Rate 63 Atrial Rate 63 P-R Interval 156 QRS Duration 84 Q-T Interval 402 QTC Calculation(Bazett) 411 P [place] 12 R [place] -4 T [place] 18 QRS Count 11 Q Onset 215 [...] QT has shortened Confirmed by Nevin Rogers ([id number]) on 03/28/2023 4:07:[address] [facility] Absolute lymphocyte countOrd ered By: Delfin Russell on 03-19-2023 Lymphocytes Auto (Unsp spec) [#/Vol] 1.39 10*3/uL 0.83-4.51 [facility] Automated lymphocyte count a s percentage of total leukocytesOrdered By: Delfin Russell on 03-19-2023 Lymphocytes/100 WBC Auto (Unsp spec) 22.9 % 19-41 [facility] Basophil percentageOrdered B y: Delfin Russell on 03-19-2023 Basophils/100 WBC (Bld) 0.3 % 0-1 [facility] Chloride [Moles/Vol] 107 mmol/L 98-107 [facility] Eosinophils/100 WBC (Bld) 2.0 % 0-5 [facility] Glucose [Mass/Vol] 91 mg/dL 74-106 [facility] Hemoglobin (Bld) [Mass/Vol] 14.6 g/dL 13.0-16.5 [facility] Monocytes/100 WBC (Bld) 7.6 % 0-10 [facility] Neutrophils (Bld) [#/Vol] 4.1 10*3/uL 2.0-7.7 [facility] Neutrophils/100 WBC (Bld) 67.0 % 47-70 [facility] Potassium [Moles/Vol] 3.6 mmol/L 3.5-5.1 [facility] Sodium [Moles/Vol] 140 mmol/L 136-145 [facility] WBC (Bld) [#/Vol] 6.1 10*3/uL 4.4-11.0 [facility] Determination of erythrocyte mean corpuscular volume (MCV)Ordered By: Delfin Russell on 03-19-2023 MCV (RBC) [Entitic vol] 96.4 fL 80-94 [facility] Erythrocyte distribution wid th ratioOrdered By: Delfin Russell on 03-19-2023 Erythrocyte distribution width (RBC) [Ratio] 13.5 % 11.6-14.6 [facility] Erythrocyte distribution wid th standard deviationOrdered By: Delfin Russell on 03-19-2023 Erythrocyte distribution width (RBC) [Entitic vol] 47.8 fL 35.1-43.9 [facility] Hematocrit Auto (Bld) [Volum e fraction]Ordered By: Delfin Russell on 03-19-2023 Hematocrit (Bld) [Volume fraction] 45.9 % 40-54 [facility] Immature granulocytes/100 WB C Auto (Bld)Ordered By: Delfin Russell on 03-19-2023 Immature granulocytes/100 WBC (Bld) 0.200 % 0.0-0.9 [facility] Comment on above: IG% - Immature Granu locytes (promyelocytes, myelocytes and metamyelocytes) > 1% indicates that a LEFT SHIFT is Present. Laboratory - Chemistry and C hemistry - challengeOrdered By: Delfin Russell on 03-19-2023 CO2 [Moles/Vol] 29.0 mmol/L 21.0-32.0 [facility] Urea nitrogen/Creatinine [Mass ratio] 6.9 mg/mg 10-20 [facility] Laboratory - Hematology and Cell countsOrdered By: Delfin Russell on 03-19-2023 MCH (RBC) [Entitic mass] 30.7 pg 27.0-32.0 [facility] MCHC (RBC) [Mass/Vol] 31.8 g/dL 32-36 [facility] Nucleated RBC/100 WBC (Bld) [Ratio] 0 % 0-5 [facility] Platelets (Bld) [#/Vol] 146 10*3/uL 150-450 [facility] No Panel InformationOrdered By: Delfin Russell on 03-19-2023 Estimated Creatinine Clearance Calc 85.51 ml/min [facility] Estimated GFR (MDRD) Amer 95 mL/min >60 [facility] Comment on above: GFR Calc Estimated GFR (MDRD) Non-Af Amer 79 mL/min >60 [facility] Comment on above: Non- GFR Calc Platelet mean volume Jose Daniel-Ec ker (Bld) [Entitic vol]Ordered By: Delfin Russell on 03-19-2023 Platelet mean volume (Bld) [Entitic vol] 12.1 fL 6.2-12.0 [facility] RBC Auto (Bld) [#/Vol]Ordere d By: Delfin Russell on 03-19-2023 RBC (Bld) [#/Vol] 4.76 10*6/uL 4.6-6.2 [facility] Serum or plasma calcium leona urement (mass/volume)Ordered By: Delfin Russell on 03-19-2023 Calcium [Mass/Vol] 9.2 mg/dL 8.5-10.1 [facility] Serum or plasma creatinine m easurement (mass/volume)Ordered By: Delfin Russell on 03-19-2023 Creatinine [Mass/Vol] 1.01 mg/dL 0.70-1.30 [facility] Comment on above: The validity of the calculated GFR & GFRAA in patients over 70 years has not been determined. Clinical correlation is essential. Serum or plasma urea nitroge n measurement (mass/volume)Ordered By: Delfin Russell on 03-19-2023 Urea nitrogen [Mass/Vol] 7 mg/dL 7-18 [facility] Thin prep Papanicolaou smear with manual screeningOrdered By: Delfin Russell on 03-19-2023 Thin prep Papanicolaou smear with manual screening 4 5-15 [facility] Serum or plasma thyroid stim ulating hormone (TSH) measurement (units/volume)Ordered By: Porfirio Miller on 03-18-2023 TSH Qn 0.35 uIU/mL 0.358-3.74 [facility] Laboratory - Microbiology an d Antimicrobial susceptibilityOrdered By: Moses Grady on 03-17-2023 G. lamblia Ag IA.rapid Ql (Stl) [facility] G. lamblia Ag IA.rapid Ql (Stl) [facility] Ova and parasitesOrdered By: Moses Grady on 03-17-2023 Ova and parasites identified LM Nom (Unsp spec) [facility] Ova and parasites identified LM Nom (Unsp spec) [facility] [facility] Stool enteric pathogen panel by probe and target amplification methodOrdered By: Moses Grady on 03-17-2023 Gastrointestinal pathogens panel YOLY+probe (Stl) [facility] Stool gastrointestinal hemog lobin detection by immunologic methodOrdered By: Delfin Russell on 03-17-2023 Lower GI hemoglobin IA Ql (Stl) [facility] Lower GI hemoglobin IA Ql (Stl) [facility] Stool lactoferrin detection by immunoassayOrdered By: Delfin Russell on 03-17-2023 Lactoferrin IA Ql (Stl) [facility] Lactoferrin IA Ql (Stl) [facility] Absolute lymphocyte countOrd ered By: Moses Grady on 03-16-2023 Lymphocytes Auto (Unsp spec) [#/Vol] 1.46 10*3/uL 0.83-4.51 [facility] Automated lymphocyte count a s percentage of total leukocytesOrdered By: Moses Grady on 03-16-2023 Lymphocytes/100 WBC Auto (Unsp spec) 22.0 % 19-41 [facility] Basophil percentageOrdered B y: Moses Grady on 03-16-2023 Basophil percentage 0 SEEN /hpf 0-5 [facility] Lactate [Moles/Vol] 1.1 mmol/L 0.4-2.0 [facility] Basophil percentage 2.5 mg/dL 2.5-4.9 [facility] Basophils/100 WBC (Bld) 0.3 % 0-1 [facility] Bilirubin [Mass/Vol] 0.80 mg/dL 0.20-1.00 [facility] Comment on above: For patients on eltr ombopag therapy, use of Dimension [place] TBIL is not recommended. Chloride [Moles/Vol] 101 mmol/L 98-107 [facility] Eosinophils/100 WBC (Bld) 0.6 % 0-5 [facility] Glucose [Mass/Vol] 140 mg/dL 74-106 [facility] Comment on above: Fasting Glucose resu lt greater than or equal to 126 mg/dL suggests DIABETES MELLITUS per A.D.A. criteria. Hemoglobin (Bld) [Mass/Vol] 14.6 g/dL 13.0-16.5 [facility] Monocytes/100 WBC (Bld) 6.2 % 0-10 [facility] Neutrophils (Bld) [#/Vol] 4.7 10*3/uL 2.0-7.7 [facility] Neutrophils/100 WBC (Bld) 70.6 % 47-70 [facility] Potassium [Moles/Vol] 3.4 mmol/L 3.5-5.1 [facility] Protein [Mass/Vol] 7.1 g/dL 6.4-8.2 [facility] Sodium [Moles/Vol] 136 mmol/L 136-145 [facility] WBC (Bld) [#/Vol] 6.6 10*3/uL 4.4-11.0 [facility] Bilirubin Test strip Ql (U)O rdered By: Moses Grady on 03-16-2023 Bilirubin Ql (U) Negative Negative [facility] Culture, urineOrdered By: Maurice Russell on 03-16-2023 Bacteria identified Cx Nom (U) Culture exhibits no growth. [facility] Bacteria identified Cx Nom (U) Culture exhibits no growth. [facility] Determination of erythrocyte mean corpuscular volume (MCV)Ordered By: Moses Grady on 03-16-2023 MCV (RBC) [Entitic vol] 92.2 fL 80-94 [facility] Direct bilirubinOrdered By: Moses Grady on 03-16-2023 Bilirubin.direct [Mass/Vol] 0.29 mg/dL 0.00-0.30 [facility] Erythrocyte distribution wid th ratioOrdered By: Moses Grady on 03-16-2023 Erythrocyte distribution width (RBC) [Ratio] 13.2 % 11.6-14.6 [facility] Erythrocyte distribution wid th standard deviationOrdered By: Moses Grady on 03-16-2023 Erythrocyte distribution width (RBC) [Entitic vol] 44.6 fL 35.1-43.9 [facility] Hematocrit Auto (Bld) [Volum e fraction]Ordered By: Moses Grady on 03-16-2023 Hematocrit (Bld) [Volume fraction] 43.9 % 40-54 [facility] Immature granulocytes/100 WB C Auto (Bld)Ordered By: Moses Grady on 03-16-2023 Immature granulocytes/100 WBC (Bld) 0.300 % 0.0-0.9 [facility] Comment on above: IG% - Immature Granu locytes (promyelocytes, myelocytes and metamyelocytes) > 1% indicates that a LEFT SHIFT is Present. Ketones Test strip Ql (U)Ord ered By: Moses Grady on 03-16-2023 Ketones Ql (U) 5 mg/dl Negative [facility] Laboratory - Chemistry and C hemistry - challengeOrdered By: Moses Grady on 03-16-2023 ALP [Catalytic activity/Vol] 77 U/L 45-117 [facility] ALT [Catalytic activity/Vol] 8 U/L 16-61 [facility] CO2 [Moles/Vol] 32.0 mmol/L 21.0-32.0 [facility] Globulin (S) [Mass/Vol] 3.5 g/dL 2.2-4.2 [facility] Lipase [Catalytic activity/Vol] 15 U/L 13-75 [facility] Comment on above: Please note:LIPASE r evised reference range effective 22. New Lipase methodology. Expected to produce lower values than the previous assay method. NEW Reference Range: 13 - 75 U/L Magnesium [Mass/Vol] 2.3 mg/dL 1.6-2.6 [facility] Natriuretic peptide B (Bld) [Mass/Vol] 81.7 pg/mL 0-100 [facility] Urea nitrogen/Creatinine [Mass ratio] 10.2 mg/mg 10-20 [facility] Laboratory - Hematology and Cell countsOrdered By: Moses Grady on 03-16-2023 MCH (RBC) [Entitic mass] 30.7 pg 27.0-32.0 [facility] MCHC (RBC) [Mass/Vol] 33.3 g/dL 32-36 [facility] Nucleated RBC/100 WBC (Bld) [Ratio] 0 % 0-5 [facility] Platelets (Bld) [#/Vol] 158 10*3/uL 150-450 [facility] Laboratory - Microbiology an d Antimicrobial susceptibilityOrdered By: Moses Grady on 03-16-2023 Bacteria identified Cx Nom (Bld) No growth in 5 days. [facility] Bacteria identified Cx Nom (Bld) No growth in 5 days. [facility] Mucus LM Ql (Urine sed)Order ed By: Moses Grady on 03-16-2023 Mucus Ql (Urine sed) 1+ /hpf [facility] Nitrite Test strip Ql (U)Ord ered By: Moses Grady on 03-16-2023 Nitrite Ql (U) Negative Negative [facility] No Panel InformationOrdered By: Moses Grady on 03-16-2023 Urine RBC 0 SEEN /hpf 0-5 [facility] Estimated Creatinine Clearance Calc 62.93 ml/min [facility] Estimated GFR (MDRD) Amer 67 mL/min >60 [facility] Comment on above: GFR Calc Estimated GFR (MDRD) Non-Af Amer 56 mL/min >60 [facility] Comment on above: Non- GFR Calc Troponin I High Sensitivity 39 pg/mL 3.0-78.0 [facility] Comment on above: Please Note: New Dayan t Units and Gender Specific Reference Ranges. For more information see Policy Stat Procedure [place] High Sensitivity Troponin (TNIH) and attachments. No Panel InformationOrdered By: Delfin Russell on 03-16-2023 Stool Calprotectin 290 ug/g 0-120 [facility] Comment on above: Concentration Interp retation Follow-Up< 5 - 50 ug/g Normal None>50 -120 ug/g Borderline Re-evaluate in 4-6 weeks >120 ug/g Abnormal Repeat as clinically indicatedPerformed at: - [facility] [address] [id number] Director: Alma Rosa Laura MD, Phone: [phone] Platelet mean volume Jose Daniel-Ec ker (Bld) [Entitic vol]Ordered By: Moses Grady on 03-16-2023 Platelet mean volume (Bld) [Entitic vol] 11.5 fL 6.2-12.0 [facility] Protein Test strip Ql (U)Ord ered By: Moses Grady on 03-16-2023 Protein Ql (U) 15 mg/dl Negative [facility] RBC Auto (Bld) [#/Vol]Ordere d By: Moses Grady on 03-16-2023 RBC (Bld) [#/Vol] 4.76 10*6/uL 4.6-6.2 [facility] Serum or plasma calcium leona urement (mass/volume)Ordered By: Moses Grady on 03-16-2023 Calcium [Mass/Vol] 9.2 mg/dL 8.5-10.1 [facility] Serum or plasma creatinine m easurement (mass/volume)Ordered By: Moses Grady on 03-16-2023 Creatinine [Mass/Vol] 1.37 mg/dL 0.70-1.30 [facility] Comment on above: The validity of the calculated GFR & GFRAA in patients over 70 years has not been determined. Clinical correlation is essential. Serum or plasma urea nitroge n measurement (mass/volume)Ordered By: Moses Grady on 03-16-2023 Urea nitrogen [Mass/Vol] 14 mg/dL 7-18 [facility] Squamous epithelial cells de tection in urine sediment by light microscopyOrdered By: Moses Grady on 03-16-2023 Epithelial cells.squamous LM Ql (Urine sed) 0-5 SEEN /hpf 0-5 [facility] Thin prep Papanicolaou smear with manual screeningOrdered By: Moses Grady on 03-16-2023 Thin prep Papanicolaou smear with manual screening 3.6 g/dL 3.2-5.0 [facility] Thin prep Papanicolaou smear with manual screening 13 U/L 15-37 [facility] Thin prep Papanicolaou smear with manual screening 3 5-15 [facility] Urine blood detectionOrdered By: Moses Grady on 03-16-2023 RBC Ql (U) 10 /ul Negative [facility] Urine clarityOrdered By: Zoltan Grady on 03-16-2023 Clarity (U) Clear Clear [facility] Urine color determinationOrd ered By: Moses Grady on 03-16-2023 Color (U) Yellow Yellow [facility] Urine glucose detectionOrder ed By: Moses Grady on 03-16-2023 Glucose Ql (U) Normal mg/dl Normal [facility] Urine leukocyte esterase det ection by dipstickOrdered By: Moses Grady on 03-16-2023 Leukocyte esterase Test strip Ql (U) 25 /ul Negative [facility] Urine pHOrdered By: Moses ying on 03-16-2023 pH (U) 6.0 [pH] 5.0 - 8.0 [facility] Urine sediment bacteria coun t by microscopy (number/high power field)Ordered By: Moses Grady on 03-16-2023 Bacteria LM.HPF (Urine sed) [#/Area] 0 /[HPF] None Seen [facility] Urine specific gravity measu rementOrdered By: Moses Grady on 03-16-2023 Specific gravity (U) [Rel density] 1.015 1.002-1.030 [facility] Urine urobilinogen measureme ntOrdered By: Moses Grady on 03-16-2023 Urobilinogen Ql (U) Normal mg/dl Normal [facility] Absolute lymphocyte countOrd ered By: Karen Lora on 12-14-2022 Lymphocytes Auto (Unsp spec) [#/Vol] 1.21 10*3/uL 0.83-4.51 [facility] Alternaria alternata IgE ser umOrdered By: Karen Lora on 12-14-2022 A. alternata IgE Qn (S) <0.10 kU/L Class 0 [facility] Atypical perinuclear antineu trophil cytoplasmic antibodies measurementOrdered By: Karen Lora on 12-14-2022 Neutrophil cytoplasmic Ab.perinuclear.atypical IF (S) [Titer] <1:20 titer Neg:<1:20 [facility] Comment on above: The atypical pANCA p attern has been observed in asignificant percentage of patients with ulcerative colitis,primary sclerosing cholangitis and autoimmune hepatitis. Basophil percentageOrdered B y: Karen Lora on 12-14-2022 Basophils/100 WBC (Bld) 0.3 % 0-1 [facility] Eosinophils/100 WBC (Bld) 1.7 % 0-5 [facility] Neutrophils (Bld) [#/Vol] 4.2 10*3/uL 2.0-7.7 [facility] Neutrophils/100 WBC (Bld) 69.9 % 47-70 [facility] WBC (Bld) [#/Vol] 6.1 10*3/uL 4.4-11.0 [facility] Blood erythrocytes count (nu mber/volume)Ordered By: Karen Lora on 12-14-2022 RBC (Bld) [#/Vol] 4.73 10*6/uL 4.6-6.2 [facility] Blood hemoglobin measurement (mass/volume)Ordered By: Karen Lora on 12-14-2022 Hemoglobin (Bld) [Mass/Vol] 14.4 g/dL 13.0-16.5 [facility] Blood lymphocytes/100 leukoc ytesOrdered By: Karen Lora on 12-14-2022 Lymphocytes/100 WBC (Bld) 20.0 % 19-41 [facility] Blood monocytes/100 leukocyt esOrdered By: Karen Lora on 12-14-2022 Monocytes/100 WBC (Bld) 7.8 % 0-10 [facility] Blood platelet mean volumeOr dered By: Karen Lora on 12-14-2022 Platelet mean volume (Bld) [Entitic vol] 11.0 fL 6.2-12.0 [facility] Determination of erythrocyte mean corpuscular volume (MCV)Ordered By: Karen Lora on 12-14-2022 MCV (RBC) [Entitic vol] 94.7 fL 80-94 [facility] Hematocrit Auto (Bld) [Volum e fraction]Ordered By: Karen Lora on 12-14-2022 Hematocrit (Bld) [Volume fraction] 44.8 % 40-54 [facility] Laboratory - Hematology and Cell countsOrdered By: Karen Lora on 12-14-2022 Erythrocyte distribution width (RBC) [Entitic vol] 47.6 fL 35.1-43.9 [facility] Erythrocyte distribution width (RBC) [Ratio] 13.7 % 11.6-14.6 [facility] Immature granulocytes/100 WBC (Bld) 0.300 % 0.0-0.9 [facility] Comment on above: IG% - Immature Granu locytes (promyelocytes, myelocytes and metamyelocytes) > 1% indicates that a LEFT SHIFT is Present. MCH (RBC) [Entitic mass] 30.4 pg 27.0-32.0 [facility] Nucleated RBC/100 WBC (Bld) [Ratio] 0 % 0-5 [facility] Laboratory - Miscellaneous t estsOrdered By: Karen Lora on 12-14-2022 Service comment (Unsp spec) [Interp] Comment . [facility] Comment on above: Levels of Specific I [...] 12-14-2022 MCHC (RBC) [Mass/Vol] 32.1 g/dL 32-36 [facility] No Panel InformationOrdered By: Karen Lora on 12-14-2022 Common Ragweed (Short) Allergen <0.10 kU/L Class 0 [facility] Filipino Plantain Allergen (RAST) <0.10 kU/L [facility] 0 [facility] Immunoglobulin E 176 IU/mL 6-495 [facility] Comment on above: Performed at: [facility] [address] [id number] Director: Noe Mejias PhD, Phone: [phone] at: [facility] [id number] Director: Alma Rosa Laura MD, Phone: [phone] Mouse Urine Allergen IgE Antibody <0.10 kU/L Class 0 [facility] Comment on above: Performed at: [address] [id number] Director: Alma Rosa Laura MD, Phone: [phone] Platelets bldOrdered By: Addison Lora on 12-14-2022 Platelets (Bld) [#/Vol] 164 10*3/uL 150-450 [facility] Serum Aspergillus flavus ant ibody detection by immunodiffusionOrdered By: Karen Lora on 12-14-2022 A. flavus Ab Immune diff Ql (S) Negative Neg:<1:1 [facility] Serum Aspergillus fumigatus antibody detection by immunodiffusionOrdered By: Karen Lora on 12-14-2022 A. fumigatus Ab Immune diff Ql (S) Negative Neg:<1:1 [facility] Serum Aspergillus niger anti body detection by immunodiffusionOrdered By: Karen Lora on 12-14-2022 A. niger Ab Immune diff Ql (S) Negative Neg:<1:1 [facility] Serum Bermuda grass IgE anti body assay (units/volume)Ordered By: Karen Lora on 12-14-2022 Bermuda grass IgE Qn (S) <0.10 kU/L Class 0 [facility] Serum Dermatophagoides farin ae specific IgE antibody assay (units/volume)Ordered By: Karen Lora on 12-14-2022 Tanzanian house dust mite IgE Qn (S) <0.10 kU/L Class 0 [facility] Serum house dust mi te IgE antibody assay (units/volume)Ordered By: Karen Lora on 12-14-2022 house dust mite IgE Qn (S) <0.10 kU/L Class 0 [facility] Serum [place] blue grass Ig E antibody assay (units/volume)Ordered By: Karen Lora on 12-14-2022 [place] blue grass IgE Qn (S) <0.10 kU/L Class 0 [facility] Serum cat dander IgE antibod y assay (units/volume)Ordered By: Karen Lora on 12-14-2022 Cat dander IgE Qn (S) <0.10 kU/L Class 0 [facility] Serum classic neutrophil cyt oplasmic antibody assay (units/volume)Ordered By: Karen Lora on 12-14-2022 Neutrophil cytoplasmic Ab.classic Qn (S) <1:20 titer Neg:<1:20 [facility] Serum dog epithelium IgE ant ibody assay (units/volume)Ordered By: Karen Lora on 12-14-2022 Dog epithelium IgE Qn (S) <0.10 kU/L Class 0 [facility] Serum perinuclear neutrophil cytoplasmic antibody titer by immunofluorescenceOrdered By: Karen Lora on 12-14-2022 Neutrophil cytoplasmic Ab.perinuclear IF (S) [Titer] <1:20 titer Neg:<1:20 [facility] Comment on above: The presence of posi tive fluorescence exhibiting P-ANCA orC-ANCA patterns alone is not specific for the diagnosis ofWegener's Granulomatosis (WG) or microscopic polyangiitis.Decisions about treatment should not be based solely onANCA IFA results. The [employer] ANCA [employer] Consensusrecommends follow up testing of positive sera with both WY-3 and MPO-ANCA enzyme immunoassays. As many as 5% serumsamples are positive only by EIA. Ref. AM J Clin Yusrtv3391;111:507-513. Serum white elm IgE antibody assay (units/volume)Ordered By: Karen Lora on 12-14-2022 White Elm IgE Qn (S) <0.10 kU/L Class 0 [facility] Serum white oak IgE antibody assay (units/volume)Ordered By: Karen Lora on 12-14-2022 [place] IgE Qn (S) <0.10 kU/L Class 0 [facility] Basophil percentageOrdered B y: Christian Hernandez on 10-09-2022 Creatinine [Mass/Vol] 1.7 mg/dL 0.70-1.30 [facility] Laboratory - Chemistry and C hemistry - challengeOrdered By: Christian Hernandez on 10-09-2022 GFR/1.73 sq M.predicted among non-blacks MDRD (S/P/Bld) [Vol rate/Area] 44.0000 mL/min/{1.73_m2} >60 [facility] Blood Pressure Cuff Sizeon 0 09-25-2022 Fall [...] on 06-19-2022 Bilirubin [Mass/Vol] 0.50 mg/dL 0.20-1.00 [facility] Comment on above: For patients on eltr ombopag therapy, use of Dimension [place] TBIL is not recommended. Chloride [Moles/Vol] 107 mmol/L 98-107 [facility] Glucose [Mass/Vol] 119 mg/dL 74-106 [facility] Comment on above: Fasting Glucose resu lt from 100 to 125 mg/dL suggests IMPAIRED HOMEOSTASIS per A.D.A. criteria. Potassium [Moles/Vol] 4.1 mmol/L 3.5-5.1 [facility] Protein [Mass/Vol] 7.7 g/dL 6.4-8.2 [facility] Sodium [Moles/Vol] 140 mmol/L 136-145 [facility] WBC (Bld) [#/Vol] 8.1 10*3/uL 4.4-11.0 [facility] Blood erythrocytes count (nu mber/volume)Ordered By: Dr. Hernandez on 06-19-2022 RBC (Bld) [#/Vol] 4.88 10*6/uL 4.6-6.2 [facility] Blood hemoglobin measurement (mass/volume)Ordered By: Dr. Hernandez on 06-19-2022 Hemoglobin (Bld) [Mass/Vol] 14.9 g/dL 13.0-16.5 [facility] Blood platelet mean volumeOr dered By: Dr. Hernandez on 06-19-2022 Platelet mean volume (Bld) [Entitic vol] 11.7 fL 6.2-12.0 [facility] Determination of erythrocyte mean corpuscular volume (MCV)Ordered By: Dr. Hernandez on 06-19-2022 MCV (RBC) [Entitic vol] 94.9 fL 80-94 [facility] Hematocrit Auto (Bld) [Volum e fraction]Ordered By: Dr. Hernandez on 06-19-2022 Hematocrit (Bld) [Volume fraction] 46.3 % 40-54 [facility] Laboratory - Chemistry and C hemistry - challengeOrdered By: Dr. Hernandez on 06-19-2022 ALP [Catalytic activity/Vol] 97 U/L 45-117 [facility] ALT [Catalytic activity/Vol] 27 U/L 16-61 [facility] CO2 [Moles/Vol] 31.0 mmol/L 21.0-32.0 [facility] Free T4 [Mass/Vol] 1.23 ng/dL 0.76-1.46 [facility] Globulin (S) [Mass/Vol] 3.9 g/dL 2.2-4.2 [facility] Magnesium [Mass/Vol] 2.5 mg/dL 1.6-2.6 [facility] Urea nitrogen/Creatinine [Mass ratio] 16.3 mg/mg 10-20 [facility] Laboratory - Hematology and Cell countsOrdered By: Dr. Hernandez on 06-19-2022 Erythrocyte distribution width (RBC) [Entitic vol] 45.1 fL 35.1-43.9 [facility] Erythrocyte distribution width (RBC) [Ratio] 13.0 % 11.6-14.6 [facility] MCH (RBC) [Entitic mass] 30.5 pg 27.0-32.0 [facility] MCHC Auto (RBC) [Mass/Vol]Or dered By: Dr. Hernandez on 06-19-2022 MCHC (RBC) [Mass/Vol] 32.2 g/dL 32-36 [facility] No Panel InformationOrdered By: Dr. Hernandez on 06-19-2022 Estimated GFR (MDRD) Amer 72 mL/min >60 [facility] Comment on above: GFR Calc Estimated GFR (MDRD) Non-Af Amer 60 mL/min >60 [facility] Comment on above: Non- GFR Calc Free Triiodothyronine (T3) pg/dL 2.8 pg/mL 2.18-3.98 [facility] Thyroid Stimulating Hormone (TSH) 0.69 uIU/mL 0.358-3.74 [facility] Whole Blood Vitamin B1 Level 186.2 nmol/L 66.5-200.0 [facility] Comment on above: Performed at: [address] [id number] Director: Alma Rosa Laura MD, Phone: [phone] Platelets bldOrdered By: Dr. Hernandez on 06-19-2022 Platelets (Bld) [#/Vol] 185 10*3/uL 150-450 [facility] Serum or plasma albumin leona urement (mass/volume)Ordered By: Dr. Hernandez on 06-19-2022 Albumin [Mass/Vol] 3.8 g/dL 3.2-5.0 [facility] Serum or plasma albumin/glob ulin mass ratioOrdered By: Dr. Hernandez on 06-19-2022 Albumin/Globulin [Mass ratio] 1.0 {ratio} 0.9-2.4 [facility] Serum or plasma calcium leona urement (mass/volume)Ordered By: Dr. Hernandez on 06-19-2022 Calcium [Mass/Vol] 9.2 mg/dL 8.5-10.1 [facility] Serum or plasma creatinine m easurement (mass/volume)Ordered By: Dr. Hernandez on 06-19-2022 Creatinine [Mass/Vol] 1.29 mg/dL 0.70-1.30 [facility] Comment on above: The validity of the calculated GFR & GFRAA in patients over 70 years has not been determined. Clinical correlation is essential. Serum or plasma folate measu rement (mass/volume)Ordered By: Dr. Hernandez on 06-19-2022 Folate [Mass/Vol] 7.60 ng/mL 3.1-55.4 [facility] Serum or plasma urea nitroge n measurement (mass/volume)Ordered By: Dr. Hernandez on 06-19-2022 Urea nitrogen [Mass/Vol] 21 mg/dL 7-18 [facility] Thin prep Papanicolaou smear with manual screeningOrdered By: Dr. Hernandez on 06-19-2022 Thin prep Papanicolaou smear with manual screening 19 U/L 15-37 [facility] Thin prep Papanicolaou smear with manual screening 2 5-15 [facility] 24 hour urine alpha 2 globul in/total protein ratio by electrophoresis (mass fraction)Ordered By: Dr. Lobo on 05-02-2022 Alpha 2 globulin Elph (24H U) [Mass fraction] 11.1 % . [facility] 24 hour urine beta globulin/ total protein ratio by electrophoresis (mass fraction)Ordered By: Dr. Lobo on 05-02-2022 Beta globulin Elph (24H U) [Mass fraction] 34.1 % . [facility] Center 24 hour urine gamma globulin /total protein ratio by electrophoresis (mass fraction)Ordered By: Dr. Lobo on 05-02-2022 Gamma globulin Elph (24H U) [Mass fraction] 28.7 % . [facility] Basophil percentageOrdered B y: Dr. Lobo on 05-02-2022 Basophil percentage 3 ug/L 0-9 [facility] Comment on above: Detection Limit = 1 Basophil percentage Not [facility] Chloride [Moles/Vol] 102 mmol/L 98-107 [facility] Glucose [Mass/Vol] 88 mg/dL 74-106 [facility] Potassium [Moles/Vol] 4.3 mmol/L 3.5-5.1 [facility] Sodium [Moles/Vol] 139 mmol/L 136-145 [facility] Blood cadmium measurement (m ass/volume)Ordered By: Dr. Lobo on 05-02-2022 Cadmium (Bld) [Mass/Vol] 1.0 ug/L 0.0-1.2 [facility] Comment on above: Environmental Exposu re: Nonsmokers 0.3 - 1.2 Smokers 0.6 - 3.9 Occupational Exposure: OSHA Cadmium Std 5.0 MICK 5.0 Detection Limit = 0.5 Blood mercury measurement (m ass/volume)Ordered By: Dr. Lobo on 05-02-2022 Mercury (Bld) [Mass/Vol] < 1.0 ug/L 0.0-14.9 [facility] Comment on above: Environmental Exposu re: <15.0 Occupational Exposure: MICK - Inorganic Mercury: 15.0 Detection Limit = 1.0 Laboratory - Chemistry and C hemistry - challengeOrdered By: Dr. Lobo on 05-02-2022 CK [Catalytic activity/Vol] 131 U/L 39-308 [facility] CO2 [Moles/Vol] 30.0 mmol/L 21.0-32.0 [facility] Cobalamin (Vitamin B12) [Mass/Vol] 391 pg/mL 211-911 [facility] Urea nitrogen/Creatinine [Mass ratio] 14.1 mg/mg 10-20 [facility] No Panel InformationOrdered By: Dr. Lobo on 05-02-2022 Anti-Nuclear Antibody Screen Negative Negative [facility] Comment on above: Performed at: [facility] [address] [id number] Director: Alma Rosa Laura MD, Phone: [phone] at: [address] [id number] Director: Noe Mejias PhD, Phone: [phone] [employer] B Antibody Not Reportable [facility] Estimated GFR (MDRD) Amer 68 mL/min >60 [facility] Comment on above: GFR Calc Estimated GFR (MDRD) Non-Af Amer 57 mL/min >60 [facility] Comment on above: Non- GFR Calc Lead 1.2 ug/dL 0.0-3.4 [facility] Comment on above: Testing performed by Inductively coupled plasma/MassSpectrometry. Environmental Exposure: WHO Recommendation <20.0 Occupational Exposure: OSHA Lead Std 40.0 MICK 30.0 Detection Limit = 1.0This test was developed and its performancecharacteristics determined by [employer]. It has not beencleared or approved by the Food and Drug Administration. Parathyroid Hormone (Intact) 59.8 pg/mL 18.4-80.1 [facility] INSTRUCTIONAL DESIGN CONSULTANT Antibody Not Reportable [facility] Urine Immunofixation PEP Note Comment . [facility] Comment on above: Protein electrophore sis scan will follow via computer,mail, or special population paraprofessional delivery.Performed at: [facility] [employer] [id number] Director: Noe Mejias PhD, Phone: [phone] Serum DNA double strand anti body assay (units/volume)Ordered By: Dr. Lobo on 05-02-2022 DNA double strand Ab Qn (S) Not Reportable [facility] Serum Medina-1 antibody assay (u nits/volume)Ordered By: Dr. Lobo on 05-02-2022 Medina-1 extractable nuclear Ab Qn (S) Not Reportable [facility] Serum Scl-70 extractable nuc lear antibody assay (units/volume)Ordered By: Dr. Lobo on 05-02-2022 SCL-70 extractable nuclear Ab Qn (S) Not Reportable [facility] Serum Mojica extractable nucl ear antibody detectionOrdered By: Dr. Lobo on 05-02-2022 Mojica extractable nuclear Ab Ql (S) Not Reportable [facility] Serum or plasma calcium leona urement (mass/volume)Ordered By: Dr. Lobo on 05-02-2022 Calcium [Mass/Vol] 9.5 mg/dL 8.5-10.1 [facility] Serum or plasma creatinine m easurement (mass/volume)Ordered By: Dr. Lobo on 05-02-2022 Creatinine [Mass/Vol] 1.35 mg/dL 0.70-1.30 [facility] Comment on above: The validity of the calculated GFR & GFRAA in patients over 70 years has not been determined. Clinical correlation is essential. Serum or plasma urea nitroge n measurement (mass/volume)Ordered By: Dr. Lobo on 05-02-2022 Urea nitrogen [Mass/Vol] 19 mg/dL 7-18 [facility] Thin prep Papanicolaou smear with manual screeningOrdered By: Dr. Lobo on 05-02-2022 Thin prep Papanicolaou smear with manual screening 7 5-15 [facility] Urine albumin/total protein mass ratio by electrophoresisOrdered By: Dr. Lobo on 05-02-2022 Albumin Elph (U) [Mass fraction] 23.3 % . [facility] Urine alpha 1 globulin/total protein ratio by electrophoresis (mass fraction)Ordered By: Dr. Lobo on 05-02-2022 Alpha 1 globulin Elph (U) [Mass fraction] 2.8 % . [facility] Urine monoclonal protein/tot al protein mass ratio by electrophoresisOrdered By: Dr. Lobo on 05-02-2022 Protein.monoclonal Elph (U) [Mass fraction] See comment [facility] Comment on above: NOT OBSERVED Urine protein measurement (m ass/volume)Ordered By: Dr. Lobo on 05-02-2022 Protein (U) [Mass/Vol] 13.4 mg/dL Not [facility] Basophil percentageon 2022 Chloride [Moles/Vol] 107 mmol/L 98-107 [facility] Glucose [Mass/Vol] 110 mg/dL 74-106 [facility] Comment on above: Fasting Glucose resu lt from 100 to 125 mg/dL suggests IMPAIRED HOMEOSTASIS per A.D.A. criteria. Potassium [Moles/Vol] 4.4 mmol/L 3.5-5.1 [facility] Sodium [Moles/Vol] 142 mmol/L 136-145 [facility] Laboratory - Chemistry and C hemistry - challengeon 04-11-2022 CO2 [Moles/Vol] 29.0 mmol/L 21.0-32.0 [facility] Natriuretic peptide B (Bld) [Mass/Vol] 62.4 pg/mL 0-100 [facility] Urea nitrogen/Creatinine [Mass ratio] 16.6 mg/mg 10-20 [facility] No Panel Informationon 04-11 Estimated GFR (MDRD) Amer 60 mL/min >60 [facility] Comment on above: GFR Calc Estimated GFR (MDRD) Non-Af Amer 50 mL/min >60 [facility] Comment on above: Non- GFR Calc Serum or plasma calcium leona urement (mass/volume)on 04-11-2022 Calcium [Mass/Vol] 9.5 mg/dL 8.5-10.1 [facility] Serum or plasma creatinine m easurement (mass/volume)on 04-11-2022 Creatinine [Mass/Vol] 1.51 mg/dL 0.70-1.30 [facility] Comment on above: The validity of the calculated GFR & GFRAA in patients over 70 years has not been determined. Clinical correlation is essential. Serum or plasma urea nitroge n measurement (mass/volume)on 04-11-2022 Urea nitrogen [Mass/Vol] 25 mg/dL 7-18 [facility] Thin prep Papanicolaou smear with manual screeningon 04-11-2022 Thin prep Papanicolaou smear with manual screening 6 5-15 [facility] IO Ultrasound, measurement p ost-void resid urine and/or bl cap; no imagon 03-28-2022 IO Ultrasound, measurement post-void resid urine and/or bl cap; no imag 238 mL [facility] [employer] Work Phone: Office Visit (Urology)on Follow-up visit [...] with a 3.5 x 26 mm Resolute [place] stent History of Knee arthroscopy History of [...] Screening.on 023 Adult depression screening assessment No [facility] [employer] Work Phone: Fall risk assessment a) No falls within the last year [facility] Work Phone: Tobacco use status CPHS b) No M [facility] [employer] Work Phone: Blood Pressure Cuff Sizeon 0 [...] exertion Brain Natriuretic Peptide BNP; Status:Active; Requested for:[id number]; CAD (coronary artery disease), Hypertension, SOB (shortness of breath) on exertion Basic Metabolic Panel; Status:Active; Requested for:[id number]; CAD (coronary artery disease), SOB (shortness of [...] Prostate Specific Antigen Total 0.42 ng/mL 0.0-4.0 [facility] Comment on above: This test was perfor med using the TPSA assay method for theMetaresolver system. Values obtained with differentassay methods cannot [...] feel free to call my office at [phone] and please allow 1-2 business days for a response. If you have any scheduling needs feel free to call [phone] Ernestina Hope Pulmonary and Critical Care Fellow [address] [place] [address] Provider Impressions 61 year old male with [...] This note was created using speech recognition stewardesses teacher software. Despite proofreading, several typographical errors might be present that might affect the meaning of the content. Ernestina Hope Pulmonary and Critical Care PGY-5 Chief Complaint Patient reports for Follow up. Patient states that Simbacort is somewhat helping. Former smoker since april- no assistance. Received Covid shot and 1 booster, No Flu shot History of Present [id number] year old male with PMH of asthma (positive methacholine), laryngeal spasm, former tobacco use, NSTEMI s/p RCA stent (2021) who presents to pulmonary clinic after a recent hospitalization for pneumonia. Patient presented to the [facility] on 01/24 and was told that [...] pack per day, social etoh, no illicits. 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 Methacholine Challenge test [...] abuse (3 (more content not included)... Normal [employer] Tobacco Screening.on Adult depression screening assessment No [facility] [employer] [facility] Work Phone: Fall risk assessment a) No falls within the last year [facility] [employer] [facility] [employer] [facility] Work Phone: Tobacco use status CPHS b) No M [facility] [employer] [facility] Work Phone: Chart Updateon 01-25-2022 Chart Update Chart Update Received message from Mrs. Cole that Mr. Cole was went to [facility] issues on 01/24/22. [...] Auto (Unsp spec) [#/Vol] 0.58 10*3/uL 0.83-4.51 [facility] Basophil percentageOrdered B y: Dr. Vera on 01-24-2022 Basophils/100 WBC (Bld) 0.2 % 0-1 [facility] Chloride [Moles/Vol] 102 mmol/L 98-107 [facility] Eosinophils/100 WBC (Bld) 0.1 % 0-5 [facility] Glucose [Mass/Vol] 123 mg/dL 74-106 [facility] Comment on above: Fasting Glucose resu lt from 100 to 125 mg/dL suggests IMPAIRED HOMEOSTASIS per A.D.A. criteria. Neutrophils (Bld) [#/Vol] 7.8 10*3/uL 2.0-7.7 [facility] Neutrophils/100 WBC (Bld) 87.2 % 47-70 [facility] Potassium [Moles/Vol] 3.9 mmol/L 3.5-5.1 [facility] Sodium [Moles/Vol] 137 mmol/L 136-145 [facility] WBC (Bld) [#/Vol] 8.9 10*3/uL 4.4-11.0 [facility] Blood erythrocytes count (nu mber/volume)Ordered By: Dr. Vera on 01-24-2022 RBC (Bld) [#/Vol] 4.72 10*6/uL 4.6-6.2 [facility] Blood hemoglobin measurement (mass/volume)Ordered By: Dr. Vera on 01-24-2022 Hemoglobin (Bld) [Mass/Vol] 14.3 g/dL 13.0-16.5 [facility] Blood lymphocytes/100 leukoc ytesOrdered By: Dr. Vera on 01-24-2022 Lymphocytes/100 WBC (Bld) 6.5 % 19-41 [facility] Blood manual differential co mment interpretation (narrative result)Ordered By: Dr. Vera on 01-24-2022 Manual differential comment Buck (Bld) [Interp] SCANNED [facility] Blood monocytes/100 leukocyt esOrdered By: Dr. Vera on 01-24-2022 Monocytes/100 WBC (Bld) 5.7 % 0-10 [facility] Blood platelet mean volumeOr dered By: Dr. Vera on 01-24-2022 Platelet mean volume (Bld) [Entitic vol] 11.1 fL 6.2-12.0 [facility] Determination of erythrocyte mean corpuscular volume (MCV)Ordered By: Dr. Vera on 01-24-2022 MCV (RBC) [Entitic vol] 93.4 fL 80-94 [facility] Hematocrit Auto (Bld) [Volum e fraction]Ordered By: Dr. Vera on 01-24-2022 Hematocrit (Bld) [Volume fraction] 44.1 % 40-54 [facility] Influenza virus A and B and SARS-CoV-2 (COVID-19) Ag panel - Upper respiratory specimOrdered By: Dr. Vera on 01-24-2022 SARS-CoV-2 (COVID-19) RNA YOLY+probe Ql (Resp) [facility] Laboratory - Chemistry and C hemistry - challengeOrdered By: Dr. Vera on 01-24-2022 CO2 [Moles/Vol] 29.0 mmol/L 21.0-32.0 [facility] Natriuretic peptide B (Bld) [Mass/Vol] 110.9 pg/mL 0-100 [facility] Urea nitrogen/Creatinine [Mass ratio] 11.3 mg/mg 10-20 [facility] Laboratory - Hematology and Cell countsOrdered By: Dr. Vera on 01-24-2022 Erythrocyte distribution width (RBC) [Entitic vol] 45.9 fL 35.1-43.9 [facility] Erythrocyte distribution width (RBC) [Ratio] 13.3 % 11.6-14.6 [facility] Immature granulocytes/100 WBC (Bld) 0.300 % 0.0-0.9 [facility] Comment on above: IG% - Immature Granu locytes (promyelocytes, myelocytes and metamyelocytes) > 1% indicates that a LEFT SHIFT is Present. MCH (RBC) [Entitic mass] 30.3 pg 27.0-32.0 [facility] Nucleated RBC/100 WBC (Bld) [Ratio] 0 % 0-5 [facility] MCHC Auto (RBC) [Mass/Vol]Or dered By: Dr. Vera on 01-24-2022 MCHC (RBC) [Mass/Vol] 32.4 g/dL 32-36 [facility] No Panel InformationOrdered By: Dr. Vera on 01-24-2022 Estimated Creatinine Clearance Calc 56.85 ml/min [facility] Estimated GFR (MDRD) Amer 70 mL/min >60 [facility] Comment on above: GFR Calc Estimated GFR (MDRD) Non-Af Amer 58 mL/min >60 [facility] Comment on above: Non- GFR Calc Platelets bldOrdered By: Dr. Vera on 01-24-2022 Platelets (Bld) [#/Vol] 171 10*3/uL 150-450 [facility] RSV Ag EIAOrdered By: Dr. Mariposa levy on 01-24-2022 RSV Ag Immune stain Ql (Tiss) [facility] Serum or plasma calcium leona urement (mass/volume)Ordered By: Dr. Vera on 01-24-2022 Calcium [Mass/Vol] 9.3 mg/dL 8.5-10.1 [facility] Serum or plasma creatinine m easurement (mass/volume)Ordered By: Dr. Vera on 01-24-2022 Creatinine [Mass/Vol] 1.33 mg/dL 0.70-1.30 [facility] Comment on above: The validity of the calculated GFR & GFRAA in patients over 70 years has not been determined. Clinical correlation is essential. Serum or plasma urea nitroge n measurement (mass/volume)Ordered By: Dr. Vera on 01-24-2022 Urea nitrogen [Mass/Vol] 15 mg/dL 7-18 [facility] Thin prep Papanicolaou smear with manual screeningOrdered By: Dr. Vera on 01-24-2022 Thin prep Papanicolaou smear with manual screening 6 5-15 [facility] Follow Up (Pulmonary Medicin e)on 01-08-2022 Follow Up (Pulmonary Medicine) Diagnoses/Problems Asthma (493.90) (J45.909) SOB (shortness of breath) on exertion (786.05) (R06.02) Orders Start: Symbicort 80-4.5 MCG/ACT Inhalation Aerosol (Budesonide-Formoterol Fumarate); INHALE 2 PUFFS TWICE DAILY. RINSE MOUTH AFTER USE Rx By: Leta Lu; Dispense: 90 Days ; #:3 X 6.9 GM Inhaler; Refill: 3;For: Asthma; NAMRATA = N; Verified Transmission to [facility]; Last Updated By: [employer]; 01/08/2022 2:50:19 PM Otolaryngology Follow-Up Outpatient Follow-up Status: Hold For - Scheduling Requested for: 08Jan2022 Ordered Stat;For: Asthma; Ordered By: Leta Lu Performed: Due: [id number] Tobacco Use Screening; Status:Complete; Done: 08Jan2022 Perform:Not [...] unsafe with his breathing; sent him to [facility] where he received albuterol breathing treatment. 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 Normal [employer] Tobacco Screening.on 022 Adult depression screening assessment No [facility] [employer] [facility] Work Phone: Fall risk assessment a) [...] RACE VARIABLE FOR THE IDMS-TRACEABLE CREATININE METHODS.https://jasn.asnjournals.org/content// ASN.3938930023 BNPon 12-09-2021 Natriuretic peptide B (Bld) [Mass/Vol] 81 pg/mL Normal 0 - 99 [facility] Comment on above: Result Comment: . <1 00 pg/mL - Heart failure unlikely 100-299 pg/mL - Intermediate probability of acute heart . failure exacerbation. Correlate with clinical . context and patient history. >=300 pg/mL - Heart Failure likely. Correlate with clinical . context and patient history. BNP testing is performed using different testing methodology at [facility] than at other [facility] hospitals. Direct result comparisons should only be made within the same method. Performed By: #### B NP2 #### [address] [address] CBC AND DIFFERENTIALon 12-09 Basophils (Bld) [#/Vol] 0.00 10*3/uL Normal 0.00 - 0.1 0 [facility] Comment on above: Performed By: #### C BCDF #### [address] [address] Basophils/100 WBC (Bld) 0.4 % Normal 0.0 - 2.0 [facility] Comment on above: Performed By: #### C BCDF #### [address] [address] Eosinophils (Bld) [#/Vol] 0.10 10*3/uL Normal 0.00 - 0.70 [facility] Comment on above: Performed By: #### C BCDF #### [address] [address] Eosinophils/100 WBC (Bld) 1.0 % Normal 0.0 - 6.0 [facility] Comment on above: Performed By: #### C BCDF #### [address] [address] Erythrocyte distribution width (RBC) [Ratio] 13.3 % Normal 11.5 - 14.5 [facility] Comment on above: Performed By: #### C BCDF #### [address] [address] Hematocrit (Bld) [Volume fraction] 40.0 % Low 41.0 - 52.0 [facility] Comment on above: Performed By: #### C BCDF #### [address] [address] Hemoglobin (Bld) [Mass/Vol] 13.5 g/dL Normal 13.5 - 17.5 [facility] Comment on above: Performed By: #### C BCDF #### [address] [address] Lymphocytes (Bld) [#/Vol] 2.30 10*3/uL Normal 1.20 - 4.80 [facility] Comment on above: Performed By: #### C BCDF #### [address] [address] Lymphocytes/100 WBC (Bld) 26.8 % Normal 13.0 - 44.0 [facility] Comment on above: Performed By: #### C BCDF #### [address] [address] MCHC (RBC) [Mass/Vol] 33.9 g/dL Normal 32.0 - 36.0 [facility] Comment on above: Performed By: #### C BCDF #### [address] [address] MCV (RBC) [Entitic vol] 92 fL Normal 80 - 100 [facility] Comment on above: Performed By: #### C BCDF #### [address] [address] Monocytes (Bld) [#/Vol] 0.60 10*3/uL Normal 0.10 - 1.0 0 [facility] Comment on above: Performed By: #### C BCDF #### [address] [address] Monocytes/100 WBC (Bld) 7.5 % Normal 2.0 - 10.0 [facility] Comment on above: Performed By: #### C BCDF #### [address] [address] Neutrophils (Bld) [#/Vol] 5.40 10*3/uL Normal 1.20 - 7.70 [facility] Comment on above: Result Comment: Perc ent differential counts (%) should be interpreted in the context of the absolute cell counts (cells/L). Performed By: #### C BCDF #### [address] [address] Neutrophils/100 WBC (Bld) 64.3 % Normal 40.0 - 80.0 [facility] Comment on above: Performed By: #### C BCDF #### [address] [address] NUCLEATED RBC 0.1 /100 WBC Normal [facility] Comment on above: Performed By: #### C BCDF #### [address] [address] Platelets (Bld) [#/Vol] 186 10*3/uL Normal 150 - 450 [facility] Comment on above: Performed By: #### C BCDF #### [address] [address] RBC 4.35 x10E12/L Low 4.50 - 5.90 [facility] Comment on above: Performed By: #### C BCDF #### [address] [address] WBC (Bld) [#/Vol] 8.4 10*3/uL Normal 4.4 - 11.3 [facility] Comment on above: Performed By: #### C BCDF #### [address] [address] CHEST 1 VIEWon 12-09-2021 CHEST 1 VIEW Patient Name: FREDDIE COLE STUDY: CHEST 1 VIEW; 12/08/2021 11:18 pm INDICATION: dyspnea . COMPARISON: 06/03/2021 ACCESSION NUMBER(S): [id number] ORDERING CLINICIAN: ALFA CABALLERO FINDINGS: No consolidation, pleural effusion, or pneumothorax. Slight low lung volumes. Heart size is normal. No acute osseous abnormality. Degenerative changes about the shoulders and spine. IMPRESSION: 1. No acute cardiopulmonary process. Electronically signed by: RAJI JENNINGS, DO Normal [facility] COMPREHENSIVE PANELon 2021 Albumin [Mass/Vol] 4.2 g/dL Normal 3.4 - 5.0 [facility] Comment on above: Performed By: #### C MP #### [address] [address] ALP [Catalytic activity/Vol] 84 U/L Normal 33 - 136 [facility] Comment on above: Performed By: #### C MP #### [address] [address] ALT [Catalytic activity/Vol] 17 U/L Normal 10 - 52 [facility] Comment on above: Result Comment: Sadaf ents treated with Sulfasalazine may generate falsely decreased results for ALT. Performed By: #### C MP #### [address] [address] Anion gap [Moles/Vol] 11 mmol/L Normal 10 - 20 [facility] Comment on above: Performed By: #### C MP #### [address] [address] AST [Catalytic activity/Vol] 14 U/L Normal 9 - 39 [facility] Comment on above: Performed By: #### C MP #### [address] [address] Bilirubin [Mass/Vol] 0.5 mg/dL Normal 0.0 - 1.2 [facility] Comment on above: Performed By: #### C MP #### [address] [address] Calcium [Mass/Vol] 9.2 mg/dL Normal 8.6 - 10.3 [facility] Comment on above: Performed By: #### C MP #### [address] [address] Chloride [Moles/Vol] 102 mmol/L Normal 98 - 107 [facility] Comment on above: Performed By: #### C MP #### [address] [address] Creatinine [Mass/Vol] 1.26 mg/dL Normal 0.50 - 1.30 [facility] Comment on above: Performed By: #### C MP #### [address] [address] GFR/1.73 sq M.predicted among non-blacks MDRD (S/P/Bld) [Vol rate/Area] 64 mL/min/{1.73_m2} Normal >90 [facility] Comment on above: Result Comment: CALC ULATIONS OF ESTIMATED GFR ARE PERFORMED USING THE 2020 CKD-EPI STUDY REFIT EQUATION WITHOUT THE RACE VARIABLE FOR THE IDMS-TRACEABLE CREATININE METHODS. https://jasn.asnjournals.org/content/early/ 903625 Performed By: #### C MP #### [address] [address] Glucose [Mass/Vol] 102 mg/dL High 74 - 99 [facility] Comment on above: Performed By: #### C MP #### [address] [address] HCO3 (Bld) [Moles/Vol] 30 mmol/L Normal 21 - 32 [facility] Comment on above: Performed By: #### C MP #### [address] [address] Potassium [Moles/Vol] 3.5 mmol/L Normal 3.5 - 5.3 [facility] Comment on above: Performed By: #### C MP #### [address] [address] Protein [Mass/Vol] 6.9 g/dL Normal 6.4 - 8.2 [facility] Comment on above: Performed By: #### C MP #### [address] [address] Sodium [Moles/Vol] 139 mmol/L Normal 136 - 145 [facility] Comment on above: Performed By: #### C MP #### [address] [address] Urea nitrogen [Mass/Vol] 18 mg/dL Normal 6 - 23 [facility] Comment on above: Performed By: #### C MP #### [address] [address] Provider Note - ED v3on 11-19 Provider [...] and he was very swollen. Went to [facility] where they performed a catheterization and placed [...] day -.Me (more content not included)... Normal [facility] Risk Screen - Adult Emergenc yon [...] material; verbal instruction Cultural Considerationsnone Developmental Considerationsnone Advent Considerationsnone Learning Assessment (Other Learner): Learning Assessment [...] an injured patient at a Trauma Center ([facility]/[place] /[place] no Electronic Signatures: Ann Rudd) (Signed 09-Dec-2021 01:01) Authored: Preferred Language, Patient Preferred Pharmacy, Advanced Directives, Family Violence Adult, Learning Assessment (Patient), Learning Assessment (Other Learner), Pressure Injury/TB/Substance, Pressure Injury, CAGE Last Updated: 09-Dec-2021 01:01 by Ann Rudd (RN) Normal [facility] TROPONIN I, HIGH SENSITIVITY on 12-09-2021 TROPONIN I, HIGH SENSITIVITY 6 ng/L Normal 0 - 20 [facility] Comment on above: Result Comment: . [...] performed using a different testing methodology at [facility] than at other [facility]. Direct result comparisons should only be made within the same method. Performed By: #### [facility] #### [id number] [place] [address] TROPONIN I, HIGH SENSITIVITY 7 ng/L Normal 0 - 20 [facility] Comment on above: Result Comment: . [...] performed using a different testing methodology at [facility] than at other [facility]. Direct result comparisons should only be made within the same method. Performed By: #### [facility] #### [id number] [place] [address] Tropinin I.cardiac panel High sensitivity method 6 [...] performed using a different testing methodology at [facility] than at other [facility]. Direct result comparisons should only be made [...] BMI (kg/m2): 32.578 Calculated BSA (m2) 2.21 [place] Coma Scale: Best Eye Response: (E4) spontaneous Best Motor Response: (M6) obeys commands Best Verbal Response: (V5) oriented Meagan Score: 15 [facility] Assessment Qualifiers: patient not sedated/intubated Cough lasting [...] 08-Dec-2021 23:26 by Jonna Brandt (RN) Normal [facility] Ancillary Visit (Sleep Lab)o n 12-08-2021 [...] Dec 08 2021 11:46PM EST (Author) Normal [facility] Ancillary Visit (Sleep Lab) Risk Screening Initial [...] Dec 08 2021 11:47PM EST (Author) Normal [facility] Complete Blood Count + Diffe brigitte 12-08-2021 [...] 0.5 mg/dL 0.0 - 1.2 MP-C ardiolo gy-[address] [place] Work Phone: Calcium [Mass/Vol] 9.2 [...] above: . <100 pg/mL - Heart failure [id number] pg/mL - Intermediate probability of acute heart. failure exacerbation. Correlate with clinical. context and patient history. >=300 pg/mL - Heart Failure likely. Correlate with clinical. context and patient history.BNP testing is performed using different testing methodology at [facility] than at other [facility]. Direct result comparisons should only be made within the same method. 64 {mL/min/1.73m2} >90 MP-Car diolo gy-[address] [address] [place] Work Phone: Comment on above: CALCULATIONS OF LILI MATED GFR ARE PERFORMED USING THE 2020 CKD-EPI STUDY REFIT EQUATION WITHOUT THE RACE VARIABLE FOR THE IDMS-TRACEABLE CREATININE METHODS.https://jasn.asnjournals.org/content/early// ASN.6310771451 Radiologyon 12-08-2021 XR Chest Single view Normal [...] performed using a different testing methodology at [facility] than at other [facility]. Direct result comparisons should only be made within the same method. Follow Up (Pulmonary Medicin e)on 11-27-2021 Follow Up (Pulmonary Medicine) Diagnoses/Problems SOB (shortness of breath) on exertion (786.05) (R06.02) Orders Bronch Provocation-Methacholine Challenge; Status:Active; Requested for:27Nov2021; Perform:[facility]; Due:25Feb2022;Ordered; For:SOB (shortness of breath) on exertion; Ordered By:Leta Lu; Cough Assist Device; Status:Active; Requested for:27Nov2021; Perform:Not Applicable; Due:07Dec2021;Ordered; For:SOB (shortness of breath) on exertion; Ordered By:Leta Lu; Spirometry; Status:Active; Requested for:27Nov2021; Perform:[facility]; Due:25Feb2022;Ordered; For:SOB (shortness of breath) on exertion; [...] but no flu vaccine. 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 Normal [facility] Laboratory - Chemistry and C hemistry - challengeon 11-27-2021 Anion gap [Moles/Vol] 12 mmol/L 10 - 20 MP- Cardiolo gy-[place] Work Phone: Calcium [Mass/Vol] 9.4 mg/dL 8.6 - 10.6 MP-Car diolo gy-[place] Work Phone: Chloride [Moles/Vol] 104 mmol/L 98 - 107 MP-C ardiolo gy-[place] Work Phone: CO2 [Moles/Vol] 31 mmol/L 21 - 32 MP-Cardio lo gy-[place] Work Phone: Creatinine [Mass/Vol] 1.40 mg/dL above high threshold See Below MP-Cardiolo gy-[place] Work Phone: Comment on above: Reference Range: 0.5 0 - 1.30 Glucose [Mass/Vol] 94 mg/dL 74 - 99 MP-Car diolo gy-[place] Work Phone: Natriuretic peptide B (Bld) [Mass/Vol] 144 pg/mL above high threshold 0 - 99 MP-Cardiolo gy-[place] Work Phone: Comment on above: . <100 pg/mL - Heart failure -755 pg/mL - Intermediate probability of acute heart. [...] 4.2 mmol/L 3.5 - 5.3 MP- Cardiolo gy-[place] Work Phone: Sodium [Moles/Vol] 143 mmol/L 136 - 145 MP-Car diolo gy-[place] Work Phone: Urea nitrogen [Mass/Vol] 19 mg/dL 6 - 23 MP-Cardiolo gy-[place] Work Phone: No Panel Informationon 11-27 56 {mL/min/1.73m2} Abnormal >90 MP-Car diolo gy-[place] Work Phone: Comment on above: CALCULATIONS OF LILI MATED GFR ARE PERFORMED USING THE 2020 CKD-EPI STUDY REFIT EQUATION WITHOUT THE RACE VARIABLE FOR THE IDMS-TRACEABLE CREATININE METHODS.https://jasn.asnjournals.org/content// ASN.5512348685 Tobacco Screening.on 022 Adult depression screening assessment [...] artery disease) Basic Metabolic Panel; Status:Active; Requested for:[id number]; Breathing difficulty, CAD (coronary artery disease), Hypertension Renew: Isosorbide Mononitrate ER 60 MG Oral Tablet Extended Release 24 Hour; Take 1 tablet daily Breathing difficulty, SOB (shortness of breath) on exertion Brain Natriuretic Peptide BNP; Status:Active; Requested for:[id number]; CAD (coronary artery disease) Renew: Furosemide 40 MG Oral Tablet; Take 1 tablet daily SOB (shortness of breath) on exertion In Lab PSG Sleep Study, 6 years of age and greater; Status:Hold For - Scheduling; Requested for:[id number]; Non-ambulatory,wheelchai r,other physical limitations? : No Ensuresis(prep [...] Past Medica (more content not included)... Normal [facility] Bilirubin, Serum Direct - Co [facility] 11-01-2021 Bilirubin.direct [Mass/Vol] 0.2 mg/dL 0.0 - 0.3 [facility] 6 Work Phone: Complete Blood Count + Diffe [facility] 11-01-2021 Basophils/100 WBC (Bld) 0.4 % 0.0 - 2.0 M [facility] 6 Work Phone: Erythrocyte distribution width (RBC) [Ratio] 13.4 % See Below [facility] 6 Work Phone: Comment on above: Reference Range: 11. 5 - 14.5 Hematocrit (Bld) [Volume fraction] 43.0 % See Below [facility] 6 Work Phone: Comment on above: Reference Range: 41. 0 - 52.0 Hemoglobin (Bld) [Mass/Vol] 14.3 g/dL See Below [facility] 6 Work Phone: Comment on [...] pg/mL above high threshold 0 - 99 [address] [address] Work Phone: Comment on above: . <100 pg/mL - Heart failure [id number] pg/mL - Intermediate probability of acute heart. [...] dye [Mass/Vol] 4.4 g/dL 3.4 - 5.0 [address] [address] Work Phone: ALP [Catalytic activity/Vol] 67 U/L 33 - 136 [facility] 6 Work Phone: ALT With P-5'-P [Catalytic activity/Vol] 16 U/L 10 - 52 [facility] 6 Work Phone: Comment on above: Patients treated wit h Sulfasalazine may generate falsely decreased results for ALT. Anion gap [Moles/Vol] 11 mmol/L 10 - 20 [facility] 6 Work Phone: AST With P-5'-P [Catalytic activity/Vol] 14 U/L 9 - 39 [address] [address] Work Phone: Bilirubin [Mass/Vol] 0.9 mg/dL 0.0 - 1.2 [facility] 6 Work Phone: Calcium [Mass/Vol] 9.6 mg/dL 8.6 - 10.3 [facility] 6 Work Phone: Chloride [Moles/Vol] 105 mmol/L [...] RACE VARIABLE FOR THE IDMS-TRACEABLE CREATININE METHODS.https://jasn.asnjournals.org/content// ASN.3183855593 Reticulocyte Counton 022 Reticulocyte Count 36 pg [...] (coronary artery disease). COMPARISON: None. ACCESSION NUMBER(S): [id number]; [id number]; [id number] ORDERING CLINICIAN: JAYNE MENDENHALL TECHNIQUE: DIVISION OF [...] Electronically signed by: TJ AREVALO DO Normal [facility] No Panel Informationon 10-26 Normal MP-Cardiolo gy-[address] [place] Work Phone: Please click on the link to view the study images Normal MP-Cardiolo gy-[place] Work Phone: MP-Cardiolo gy-[address] [place] Work Phone: Syngo Nuclear Orderon 2021 Syngo Nuclear Order [facility] , [address], [place] [address] and Nuclear Pharmacologic Stress Test Patient Name: FREDDIE COLE Ordering Physician: Jayne Godinez Study Date: 10/26/2021 Reading Physician: [id number] Nevin Rogers MD MRN/PID: [id number] Supervising [id number] Jaime Boateng MD Physician: Accession/Order#: [id number] Referring Physician: [id number] JAYNE GODINEZ Date of : 1960 PCP: Gender: M Fellow: Admit Date: 10/26/2021 Fellow: Admission Status: Outpatient Multicultural Services Librarian: Jazlyn Hayes Height: 175.26 cm Nurse: Lana Diego RN Weight: 100.70 kg Corporate Travel Consultant: NA BSA: 2.16 m2 Technologist: BMI: 32.78 kg/m2 Additional Staff: Age: 61 years cc report to: Patient Location: [facility] report to: Jayne Godinez Radiology Study Type: Syngo Nuclear Order Diagnosis/ICD: I25.10-Atherosclerotic heart disease; R06.89-Other abnormalities of breathing Indication: Dyspnea, Hypertension and hyperlipidemia Procedure/CPT: Stress Test Interpretation-[id number]; Stress Test Supervision-[id number] Falls Risk: Study Details: Correct procedure and correct patient verified verbally. Patient History: . 61y/o male presents to be evaluated for CAD and shortness of breath. PMH: HTN, hyperlipidemia, stent RCA 05/2021, DVT, Graves disease, diastolic CHF, laryngeal spasms, quit smoking 04/2021, denies family hx of CAD. Allergies: Gemtesa. Medications: The patient's prescribed medication is Isosorbide [place] (last dose 10/25), ASA, Atorvastatin, Plavix, Ezetimibe, [...] 3. Nuclear image results are reported separately. [id number] Nevin Rogers MD Electronically signed on 10/27/2021 at 2:20:11 PM Final Normal [facility] Blood Pressure Cuff Sizeon 0 10-11-2021 Adult [...] Med Order; Status:Hold For - Scheduling; Requested for:[id number]; Radiologist to Determine Optimal Study : Y [...] above high threshold 0 - 99 MP-Cardiolo gy-[place] Work Phone: Comment on above: . <100 pg/mL - Heart failure [id number] pg/mL - Intermediate probability of acute heart. [...] Panel Informationon 09-11 [email or web address]: [email or web address] [email or web address]& Date=11-09-2021&Time=14% 3a46%3a01%3a00&TestType= ECG&Site=1&OutputType=PD F&Ext=PDF MP-Cardiolo gy-[place] Work Phone: Sinus rhythm with Premature ventricular complexes MP-Cardiolo gy-[place] Work Phone: Borderline Abnormal MP-Ca rdiolo gy-[place] Work Phone: [phone] MP-Cardiolo gy-[place] Work Phone: [phone] MP-Cardiolo gy-[place] Work Phone: [phone] MP-Cardiolo gy-[place] Work Phone: [phone] MP-Cardiolo gy-[place] Work Phone: [phone] MP-Cardiol[facility] gy-[place] Work Phone: 11 [phone] MP-Cardiol[facility] gy[facility] Work Phone: [phone] MP-Cardiolo gy-[place] Work Phone: [phone] MP-Cardiolo gy-[place] Work Phone: [phone] MP-Cardiolo gy-[place] Work Phone: [phone] MP-Cardiolo gy-[place] Work Phone: [phone] MP-Cardiolo gy[facility] Work Phone: [phone] MP-Cardiol[facility] gy[facility] Work Phone: [phone] MP-Cardiol[facility] gy[facility] Work Phone: [phone] MP-[facility]iol[facility] Work Phone: TSH - Thyroid Stimulating Ho Yanick napoleson 09-11-2021 TSH Qn 1.10 m[IU]/L See Below MP-Cardiolo gy-[place] Work Phone: Comment on above: Reference Range: 0.4 4 - 3.98 TSH testing is performed using different testing methodology at [facility] than at other [facility]. Direct result comparisons should [...] + Differential 4.76 {x10E9/L} See Below MP-Cardiolo gy-[address] [place] Work Phone: Comment on above: [...] 0.3 % 0.0 - 2.0 M G-Otolaryn [facility]-[place] [facility] [place] Work Phone: Erythrocyte distribution width (RBC) [Ratio] 13.0 % See Below MG-Otolaryn [facility]-[place] [facility] [place] Work Phone: Comment on above: Reference Range: 11. 5 - 14.5 Hematocrit (Bld) [Volume fraction] 40.6 % below low threshold See Below MG-Otolaryn gology-[place] [place] Work Phone: Comment on above: Reference Range: 41. 0 - 52.0 Hemoglobin (Bld) [Mass/Vol] 13.3 g/dL below low threshold See Below MG-Otolaryn gology-[place] [place] Work Phone: Comment on above: Reference Range: 13. 5 - 17.5 Lymphocytes/100 WBC (Bld) 25.6 % See Below MG-Otolaryn gology-[place] [place] Work Phone: Comment on above: Reference Range: 13. 0 - 44.0 MCHC (RBC) [Mass/Vol] 32.8 g/dL See Below MG- Otolaryn gology-[place] [place] Work Phone: Comment on above: Reference Range: 32. 0 - 36.0 MCV (RBC) [Entitic vol] 95 fL 80 - 100 M G-Otolaryn gology-[place] [place] Work Phone: Monocytes/100 WBC (Bld) 8.9 % 2.0 - 10.0 M G-[place]tolaryn gology-[place] [place] Work Phone: Neutrophils/100 WBC (Bld) [...] (Bld) [#/Vol] 6.3 10*3/uL 4.4 - 11.3 MG-[place] laryn arleneogy-[place] [facility] [place] Work Phone: Complete Blood Count [...] Differential 1.3 % 0.0 - 6.0 MG-Otolaryn gology-[place] [place] Work Phone: Blood Pressure Cuff [...] Count + Differential 0.13 {x10E9/L} See Below [facility] Work Phone: Comment on above: Reference Range: 0.0 0 - 0.70 Complete Blood Count + Differential 0.70 {x10E9/L} See Below [facility] Work Phone: Comment on above: Reference Range: 0.1 0 - 1.00 Complete Blood Count + Differential 1.36 {x10E9/L} See Below [facility] Done.Izaiah Ben[facility] Work Phone: Comment on above: Reference Range: 1.2 0 - 4.80 Complete Blood Count + Differential 5.02 {x10E9/L} See Below [facility] Work Phone: Comment on above: Reference Range: 1.2 0 - 7.70 Complete Blood Count + Differential 1.8 % 0.0 - 6.0 [facility] Work Phone: Complete Blood Count + Differential 0.4 % 0.0 - 0.9 [facility] Herrera Ben[facility]te[place] Work Phone: Comment on above: Immature Granulocyte Count (IG) includes promyelocytes, myelocytes and metamyelocytes but does not include bands. Percent differential counts (%) should be interpreted in the context of the absolute cell counts (cells/L). Complete Blood Count + Differential 0.0 {/100_WBC} 0.0-0.0 [facility] Work Phone: Laboratory - Chemistry and C hemistry - challengeon 06-08-2021 Albumin BCP dye [Mass/Vol] 4.0 g/dL 3.4 - 5.0 [facility] Herrera Ben[facility] Work Phone: ALP [Catalytic activity/Vol] 80 U/L 33 - 136 [facility] Herrera [facility] Work Phone: ALT With P-5'-P [Catalytic activity/Vol] 22 U/L 10 - 52 [facility] Herrera Ben[facility] Work Phone: Comment on above: Patients treated wit h Sulfasalazine may generate falsely decreased results for ALT. Anion gap [Moles/Vol] 16 mmol/L 10 - 20 [facility] Work Phone: AST With P-5'-P [Catalytic activity/Vol] 25 U/L 9 - 39 [facility] Work [facility]: [phone] Bilirubin [Mass/Vol] 0.9 mg/dL 0.0 - 1.2 [facility] Work Phone: [phone] Calcium [Mass/Vol] 9.6 mg/dL 8.6 - 10.6 [facility] Work Phone: [phone] Chloride [Moles/Vol] 98 mmol/L 98 - 107 [facility] Work Phone: [phone] CO2 [Moles/Vol] 29 mmol/L 21 - 32 -[facility] [place] Work Phone: [phone] Creatinine [Mass/Vol] 1.18 mg/dL See Below [facility] Work Phone: Comment on above: Reference Range: 0.5 0 - 1.30 Glucose [Mass/Vol] 81 mg/dL 74 - 99 [facility] Work Phone: [phone] Potassium [Moles/Vol] 3.7 mmol/L 3.5 - 5.3 [facility] Work Phone: Protein [Mass/Vol] 6.6 g/dL 6.4 - 8.2 [facility] Work Phone: [phone] Sodium [Moles/Vol] 139 mmol/L 136 - 145 -[facility] Work Phone: [phone] Urea nitrogen [Mass/Vol] 17 mg/dL 6 - 23 [facility] Work Phone: Magnesium, Serumon 2 Magnesium [Mass/Vol] 2.00 mg/dL See Below [facility] Work Phone: Comment on above: Reference Range: 1.6 0 - 2.40 No Panel Informationon 06-08 69 {mL/min/1.73m2} >90 MG-Wil Benítez Work Phone: Comment on above: CALCULATIONS OF LILI MATED GFR ARE PERFORMED USING THE 2020 CKD-EPI STUDY REFIT EQUATION WITHOUT THE RACE VARIABLE FOR THE IDMS-TRACEABLE CREATININE METHODS.https://jasn.asnjournals.org/content/early/ ASN.0676912662 Laboratory - Hematology and Cell countson 06-07-2021 [...] RACE VARIABLE FOR THE IDMS-TRACEABLE CREATININE METHODS.https://jasn.asnjournals.org/content/early// ASN.5162983435 HIV 1/2 ANTIGEN/ANTIBODY SCR EEN WITH REFLEX TO CONFIRMATIONon 06-06-2021 HIV 1+2 Ab Qn (S) Non-Reactive See Below MG-Me dicine Sharon Benítez Work Phone: Comment on above: SOURCE: Reference nge: NONREACTIVE HIV Ag/Ab screen is performed using the [employer] HIV Ag/Ab Combo assay which detects the [...] 32 MG-[facility] ne Sharon Benítez Work Phone: [phone] Creatinine [Mass/Vol] 1.21 mg/dL See Below ISRA [...] RACE VARIABLE FOR THE IDMS-TRACEABLE CREATININE METHODS.https://jasn.asnjournals.org/content// ASN.3003330754 CT Angio Coronary Arteries w ith Heart [...] 9.9 mg/dL 8.6 - 10.6 MG-Med icine Sharno Benítez Work Phone: Chloride [Moles/Vol] 100 mmol/L [...] Sodium [Moles/Vol] 141 mmol/L 136 - 145 [facility] icine Sharon Benítez Work Phone: Urea nitrogen [Mass/Vol] 18 mg/dL 6 - 23 [facility] Work Phone: Renal Function Panel 72 {mL/min/1.73m2} >90 [facility] Work Phone: Comment on above: CALCULATIONS OF LILI MATED GFR ARE PERFORMED USING THE 2020 CKD-EPI STUDY REFIT EQUATION WITHOUT THE RACE VARIABLE FOR THE IDMS-TRACEABLE CREATININE METHODS.https://jasn.asnjournals.org/content// ASN.8098347731 Complete Blood Count + Lily briggs 06-04-2021 Basophils/100 WBC (Bld) 0.6 % 0.0 - 2.0 M Pierce Benítez Work Phone: Erythrocyte distribution width (RBC) [Ratio] 12.5 % See Below [facility] Work Phone: Comment on above: Reference Range: 11. 5 - 14.5 Hematocrit (Bld) [Volume fraction] 44.8 % See Below [facility] Work Phone: Comment on above: Reference Range: 41. 0 - 52.0 Hemoglobin (Bld) [Mass/Vol] 14.3 g/dL See Below [facility] Work Phone: Comment on above: Reference [...] Count + Differential 1.67 {x10E9/L} See Below [employer] Work Phone: Comment on above: Reference Range: 1.2 0 - 4.80 Complete Blood Count + Differential 4.61 {x10E9/L} See Below [employer]za[facility] [employer] Work Phone: Comment on above: Reference Range: 1.2 0 - 7.70 Complete Blood Count + Differential 2.5 % 0.0 - 6.0 [employer] [employer] Work Phone: Complete Blood Count + Differential 0.4 % 0.0 - 0.9 [employer] Work Phone: Comment on above: Immature Granulocyte Count (IG) includes promyelocytes, myelocytes and metamyelocytes but does not include bands. Percent differential counts (%) should be interpreted in the context of the absolute cell counts (cells/L). Complete Blood Count + Differential 0.0 {/100_WBC} 0.0-0.0 [employer] Work Phone: Hemoglobin A1Con 06-04-2021 Glucose [Mass/Vol] 105 mg/dL TX. com. cn colette Done.Izaiah [employer] Work Phone: HbA1c (Bld) [Mass fraction] 5.3 % [employer] Work Phone: Comment on above: Diagnosis of Diabete s-Adults Non-Diabetic: < or = 5.6% Increased risk for developing diabetes: 5.7-6.4% Diagnostic of diabetes: > or = 6.5%. Monitoring of Diabetes Age (y) Therapeutic Goal (%) Adults: >18 <7.0 Pediatrics: 13-18 <7.5 7-12 <8.0 0- 6 7.5-8.5 [place] [employer]. Diabetes Care 33(S1), Feb 2009. Lipid Panelon 06-04-2021 Cholesterol [Mass/Vol] 189 mg/dL 0 - 199 [employer] [employer] Work Phone: Comment on above: . AGE [...] dosing. Cholesterol in HDL [Mass/Vol] 49.1 mg/dL [employer] Work Phone: Comment on above: . AGE VERY LOW LOW N ORMAL HIGH 0-19 Y < 35 < 40 40-45 ---- 20-24 Y ---- < 40 >45 ---- >24 Y ---- < 40 40-60 >60. Cholesterol in LDL [Mass/Vol] 109 mg/dL above high threshold 0 - 99 MG-[employer] Work Phone: Comment on above: . NEAR BORD AGE SOBIA RABLE OPTIMAL HIGH HIGH VERY HIGH 0-19 Y 0 - 109 --- 110-129 >/= 130 ---- 20-24 Y 0 - 119 --- 120-159 >/= 160 ---- >24 Y 0 - 99 100-129 130-159 160-189 >/=190. Cholesterol.total/Jelly sterol in HDL [Mass ratio] 3.8 {ratio} [facility] Work Phone: Comment on above: REF VALUESDESIRABLE < 3.4HIGH RISK > 5.0 Triglyceride [Mass/Vol] 153 mg/dL above hi gh threshold 0 - 149 [facility] Work Phone: Comment on above: . AGE [...] [Mass/Vol] 9.8 mg/dL 8.6 - 10.6 [facility] Izaiah Benítez Work Phone: Chloride [Moles/Vol] 102 mmol/L 98 - 107 [facility] -Izaiah Benítez Work Phone: CO2 [Moles/Vol] 30 mmol/L 21 - 32 MG-[facility] ne -Izaiah Benítez Work Phone: Creatinine [Mass/Vol] 1.08 mg/dL See Below MG- Medicine Sharon Benítez Work Phone: Comment on above: Reference Range: 0.5 0 - 1.30 Glucose [Mass/Vol] 86 mg/dL 74 - 99 MG-Med icine -Izaiah Benítez Work Phone: Phosphate [Mass/Vol] 3.8 mg/dL 2.5 - 4.9 [facility] -Izaiah Benítez Work Phone: Comment on above: [...] RACE VARIABLE FOR THE IDMS-TRACEABLE CREATININE METHODS.https://jasn.asnjournals.org/content/early/ ASN.4983039496 Troponin I, Serumon 06-05-19 Troponin I.cardiac [Mass/Vol] 0.49 ng/mL above high threshold See Below [employer] Benítez Work Phone: Comment on above: Reference [...] is performed using different testing methodology at [facility] than at other [facility]. Direct result comparisons should [...] (Bld) 0.4 % 0.0 - 2.0 M Done.Pierce Benítez Work Phone: Erythrocyte distribution width (RBC) [Ratio] 12.4 % See Below [employer] Benítez Work Phone: [phone] Comment on above: Reference Range: 11. 5 - 14.5 Hematocrit (Bld) [Volume fraction] 38.3 % below low threshold See Below [facility] Work Phone: [phone] Comment on above: Reference Range: 41. 0 - 52.0 Hemoglobin (Bld) [Mass/Vol] 13.3 g/dL below low threshold See Below [facility] Work Phone: [phone] Comment on above: Reference Range: 13. 5 - 17.5 Lymphocytes/100 WBC (Bld) 22.5 % See Below [facility] Work Phone: [phone] Comment on above: Reference Range: 13. 0 - 44.0 MCHC (RBC) [Mass/Vol] 34.7 g/dL See Below [facility] Pierce Benítez Work Phone: [phone] Comment on above: Reference Range: 32. 0 - 36.0 MCV (RBC) [Entitic vol] 93 fL 80 - 100 M AkshatPierce Benítez Work Phone: [phone] Monocytes/100 WBC (Bld) 9.6 % 2.0 - 10.0 M Pierce Benítez Work Phone: [phone] Neutrophils/100 WBC (Bld) 65.6 % See Below [facility] TISHOMINGOPierce Benítez Work Phone: [phone] Comment on above: Reference Range: 40. 0 - 80.0 Platelets (Bld) [#/Vol] 154 10*3/uL 150 - 450 Pierce Benítez Work Phone: [phone] RBC (Bld) [#/Vol] 4.13 {x10E12/L} below low threshold See Below Done.Pierce Benítez Work Phone: [phone] Comment on above: Reference Range: 4.5 0 - 5.90 WBC (Bld) [#/Vol] 6.9 10*3/uL 4.4 - 11.[address] [facility] Sharon Benítez Work Phone: Complete Blood Count + Differential 0.03 {x10E9/L} See Below Done.Pierce Benítez Work Phone: Comment on above: Reference Range: 0.0 0 - 0.10 Complete Blood Count + Differential 0.11 {x10E9/L} See Below [facility] [place] Work Phone: Comment on above: Reference Range: 0.0 0 - 0.70 Complete Blood Count + Differential 0.66 {x10E9/L} See Below Done.Pierce Benítez Work Phone: Comment on above: Reference Range: 0.1 0 - 1.00 Complete Blood Count + Differential 1.55 {x10E9/L} See Below Done.Pierce Benítez Work Phone: Comment on above: Reference Range: 1.2 0 - 4.80 Complete Blood Count + Differential 4.51 {x10E9/L} See Below Done.Pierce Herrera Benítez Work Phone: Comment on above: Reference Range: 1.2 0 - 7.70 Complete Blood Count + Differential 1.6 % 0.0 - 6.0 [facility] [place] Herrera Benítez Work Phone: Complete Blood Count + Differential 0.3 % 0.0 - 0.9 [facility] [place] Herrera Benítez Work Phone: Comment on above: Immature Granulocyte Count (IG) includes promyelocytes, myelocytes and metamyelocytes but does not include bands. Percent differential counts (%) should be interpreted in the context of the absolute cell counts (cells/L). Complete Blood Count + Differential 0.0 {/100_WBC} 0.0-0.0 Done.Pierce Herrera Benítez Work Phone: INFLUENZA A/B, COVID 2019 PC R,SYMPTOMATICon 06-03-2021 Date and time of symptom onset [id number] 1 [facility] [place] Herrera Benítez Work Phone: INFLUENZA A/B, COVID 2018 PCR,SYMPTOMATIC Not detected See Below Done.Pierce Done.Izaiah Benítez Work Phone: Comment on above: Reference Range: Not Detected.This test has received FDA Emergency Use Authorization (EUA) and has been verified by [facility] ([facility]). This test is only authorized for the duration of time that circumstances exist to justify the authorization of the emergency use of in vitro diagnostic tests for the detection of SARS-CoV-2 virus and/or diagnosis of COVID-19 infection under section 564(b)(1) of the Act, 21 U.S.C. 360bbb-3(b)(1), unless the authorization is terminated or revoked sooner. [facility] is certified under CLIA-88 as qualified to perform high complexity testing. Testing is performed in the [facility] located at [address] [place] [address].SARS-CoV-2/Flu/RSV Multiplex Test: Fact sheet for providers: https://www.fda.gov/media/804404/downloadFact sheet for patients: https://www.fda.gov/media/909594/download Reference Range: Not Detected Respiratory virus testing [...] 06-03-2021 TSH Qn 1.64 m[IU]/L See Below [employer] Work Phone: Comment on above: Reference Range: 0.4 4 - 3.98 TSH testing is performed using different testing methodology at [facility] than at other [facility]. Direct result comparisons should only be made within the same method. Albumin BCP dye [Mass/Vol] 3.9 g/dL 3.4 - 5.0 [employer] Work Phone: ALP [Catalytic activity/Vol] 80 U/L 33 - 136 [employer] Benítez Work Phone: ALT With P-5'-P [Catalytic activity/Vol] 14 U/L 10 - 52 [facility] Work Phone: Comment on above: Patients treated wit h Sulfasalazine may generate falsely decreased results for ALT. Anion gap [Moles/Vol] 11 mmol/L 10 - 20 [facility] Work Phone: AST With P-5'-P [Catalytic activity/Vol] 13 U/L 9 - 39 [facility] Work Phone: Bilirubin [Mass/Vol] 0.5 mg/dL 0.0 - 1.2 MG-M [facility] Work Phone: Calcium [Mass/Vol] 9.5 mg/dL 8.6 - 10.6 MG-Med icine [facility] Work Phone: Chloride [Moles/Vol] 106 mmol/L 98 - 107 MG-M [facility] Work Phone: [phone] CO2 [Moles/Vol] 27 mmol/L 21 - 32 MG[facility] hollyIzaiah Benítez Work Phone: [phone] Creatinine [Mass/Vol] 1.09 mg/dL See Below [facility] Work Phone: Comment on above: Reference Range: 0.5 0 - 1.30 Glucose [Mass/Vol] 104 mg/dL above high threshold 74 - 99 [facility] Work Phone: Natriuretic peptide B (Bld) [Mass/Vol] 112 pg/mL above high threshold 0 - 99 [facility] Work Phone: Comment on above: . <100 pg/mL - Heart failure [id number] pg/mL - Intermediate probability of acute heart. [...] 5.3 MG- Medicine -Izaiah Benítez Work Phone: [phone] Protein [Mass/Vol] 7.0 g/dL 6.4 - 8.2 MG-Med colette -Izaiah Benítez Work Phone: [phone] Sodium [Moles/Vol] 140 mmol/L 136 - 145 MG-Med icine -Izaiah Benítez Work Phone: [phone] Urea nitrogen [Mass/Vol] 16 mg/dL 6 - 23 MG-Medicine -Izaiah Benítez Work Phone: [phone] Magnesium, Serumon Magnesium [Mass/Vol] 2.14 mg/dL See Below MG-M edicine -Izaiah Benítez Work Phone: [phone] Comment on above: Reference Range: 1.6 0 - 2.40 No Panel Informationon 06-03 [email or web address]?RetrieveTestByDateTim e?NhcaaklXC=[id number]&Da te=03-06-2021&Time=23%3a 12%3a15%3a00&TestType=EC G&Site=1&OutputType=PDF& Ext=PDF [facility] -Izaiah Benítez Work Phone: [phone] Normal sinus rhythm MG-Me dicine -Izaiah Benítez Work Phone: [phone] Abnormal [facility] -Izaiah Benítez Work Phone: [phone] 1 [facility] -Izaiah Benítez Work Phone: [phone] 1 [facility] -Izaiah Benítez Work Phone: [phone] 1 [facility] -Izaiah Benítez Work Phone: [phone] 1 [facility] -Izaiah Benítez Work Phone: [phone] 1 [facility] -Izaiah Benítez Work Phone: [phone] 1 [facility] -Izaiah Jeyson Work Phone: [phone] 1 [facility] -Izaiah Jeyson Work Phone: [phone] 1 [facility] -Izaiah Jeyson Work Phone: [phone] -[phone] 1 [facility] -Izaiah Jeyson Work Phone: [phone] 1 [facility] -Izaiah Jeyson Work Phone: [phone] 1 [facility] -Izaiah Jeyson Work Phone: [phone] 1 [facility] -Izaiah Jeyson Work Phone: [phone] 1 [facility] -Izaiah Jeyson Work Phone: [phone] 1 [facility] -Izaiah Jeyson Work Phone: [phone] [email or web address]?RetrieveTestByDateTim e?[id number]&Da te=03-06-2021&Time=23%3a 11%3a44%3a00&TestType=EC G&Site=1&OutputType=PDF& Ext=PDF [facility] -Izaiah Jeyson Work Phone: [phone] Normal sinus rhythm MG-Me dicine -Izaiah Jeyson Work Phone: [phone] Abnormal MG-Medicine -Izaiahmarisol Benítez Work Phone: [phone] 1 [facility] -Izaiah Jeyson Work Phone: [phone] 1 [facility] -Izaiah Jeyson Work Phone: [phone] 1 [facility] -Izaiah Jeyson Work Phone: [phone] 1 [facility] -Izaiah Jeyson Work Phone: [phone] 1 [facility] -Izaiah Jeyson Work Phone: [phone] 1 [facility] -Izaiah Jeyson Work Phone: [phone] 1 [facility] -Izaiah Jeyson Work Phone: [phone] 1 [facility] -Izaiah Jeyson Work Phone: [phone] 1 MG-Medicine -Izaiahmarisol Benítez Work Phone: [phone] 1 MG-Medicine -Izaiahmarisol Benítez Work Phone: [phone] 1 [facility]-Med[facility] -Izaiah Benítez Work Phone: [phone] 1 [facility] -Izaiah Benítez Work Phone: [phone] 1 [facility] -Izaiah Benítez Work Phone: [phone] 1 [facility]-Med[facility] -Izaiahmarisol Benítez Work Phone: [phone] [email or web address]?RetrieveTestByDateTim e?UkafhvwLY=[id number]&Da te=03-06-2021&Time=14%3a 15%3a16%3a00&TestType=EC G&Site=1&OutputType=PDF& Ext=PDF [facility] [place] [facility] Work Phone: [phone] Please see ED Provid er Note for formal interpretation [facility] [place] [facility] Work Phone: [phone] Normal [facility] [place] [facility] Work Phone: [phone] 1 [facility] [place] [facility] Work Phone: [phone] 1 [facility] [place] [facility] Work Phone: [phone] 1 [facility] [place] [facility] Work Phone: [phone] 1 [facility] [place] [facility] Work Phone: [phone] 1 [facility] [place] [facility] Work Phone: [phone] 1 [facility] [place] [facility] Work Phone: [phone] 1 [facility] [place] [facility] Work Phone: [phone] -[phone] 1 [facility] [place] [facility] Work Phone: [phone] 1 [facility] [place] [facility] Work Phone: [phone] [facility] [place] [facility] Work Phone: [phone] 1 [facility] [place] [facility] Work Phone: [phone] [facility] [place] [facility] Work Phone: [phone] [facility] [place] [facility] Work Phone: 76 {mL/min/1.73m2} >90 MG-Med icine -Izaiah Bneítez Work Phone: Comment on above: CALCULATIONS OF LILI MATED GFR ARE PERFORMED USING THE 2020 CKD-EPI STUDY REFIT EQUATION WITHOUT THE RACE VARIABLE FOR THE IDMS-TRACEABLE CREATININE METHODS.https://jasn.asnjournals.org/content/early/ ASN.4173131797 Please click on the link to view [...] is performed using different testing methodology at [facility] than at other [facility]. Direct result comparisons should [...] [Mass/Vol] 0.60 ng/mL Critically high See Below [employer] Work Phone: Comment on above: Reference Range: [...] is performed using different testing methodology at [facility] than at other [facility]. Direct result comparisons should only be made within the same method.. Biotin interference may cause falsely decreased results. Patients taking a Biotin dose of up to 5 mg/day should refrain from taking Biotin for 24 hours before sample collection. Providers may contact their laboratory for further information. TROP CALLED AND RB TO SB TIRADO, 06/03/2021 15:22 Urinalysison 06-03-2021 Color (U) YELLOW See Below [employer] Work Phone: Comment on above: Reference Range: STR AW,YELLOW Glucose Ql (U) Negative NEGATIVE MG-Medicin e -[employer] Work Phone: Ketones Ql (U) Negative NEGATIVE MG-Medicin e [employer] Work Phone: Leukocyte esterase Test strip Ql (U) Negative NEGATIVE MGDone.Medicine [employer] Work Phone: pH (U) 5.0 [pH] 5.0 - 8.0 [facility] [employer] Work Phone: Protein (U) [Mass/Vol] Negative NEGATIVE MG -Medicine [employer] Work Phone: RBC (U) [#/Vol] SMALL (1+) [...] 0.4 % 0.0 - 2.0 M G-Pulm [facility] [place] [address] [facility] Work Phone: Erythrocyte distribution width (RBC) [Ratio] 12.7 % See Below MG-P[facility] [address] [facility] Work Phone: Comment on above: Reference Range: 11. 5 - 14.5 Hematocrit (Bld) [Volume fraction] 45.7 % See Below MG-[facility] [address] Sleep Work Phone: Comment on above: Reference Range: 41. 0 - 52.0 Hemoglobin (Bld) [Mass/Vol] 15.3 g/dL See Below MG-[facility]-[place] [address] Sleep Work Phone: Comment on above: Reference [...] Differential 0.59 {x10E9/L} See Below [facility] [address] [facility] Work Phone: Comment on above: Reference Range: 0.1 0 - 1.00 Complete Blood Count + Differential 1.25 {x10E9/L} See Below [facility] [address] [facility] Work Phone: Comment on above: Reference Range: 1.2 0 - 4.80 Complete Blood Count + Differential 6.15 {x10E9/L} See Below [facility] [address] [facility] Work Phone: Comment on above: Reference Range: 1.2 0 - 7.70 Complete Blood Count + Differential 0.6 % 0.0 - 6.0 MG-[facility] [address] Sleep Work Phone: Complete Blood Count + Differential 0.2 % 0.0 - 0.9 MG-Pul [facility] [address] Sleep Work Phone: Comment on above: Immature Granulocyte Count (IG) includes promyelocytes, myelocytes and metamyelocytes but does not include bands. Percent differential counts (%) should be interpreted in the context of the absolute cell counts (cells/L). Ferritin, Serumon 05-17-2021 Ferritin [Mass/Vol] 209 ug/L 20 - 300 MG-Pu lm [facility] [place] [address] [facility] Work Phone: Gamma Glutamyl Transferase, Serumon 05-17-2021 Gamma glutamyl transferase [Catalytic activity/Vol] 29 U/L 5 - 64 MG-Pul[facility] [place] [address] [facility] Work Phone: Immunoglobulin E Level, Seru mon 05-17-2021 IgE Qn 191 {IU/mL} 0 - 214 MG-Medicine -Izaiah Benítez Work Phone: Laboratory - Chemistry and C hemistry - challengeon 05-17-2021 Albumin BCP dye [Mass/Vol] 4.4 g/dL 3.4 - 5.0 [facility] [facility] [place] [facility] Work Phone: ALP [Catalytic activity/Vol] 68 U/L 33 - 136 [facility] [facility] [place] [facility] Work Phone: ALT With P-5'-P [Catalytic activity/Vol] 14 U/L 10 - 52 [facility] Work Phone: Comment on above: Patients treated wit h Sulfasalazine may generate falsely decreased results for ALT. Anion gap [Moles/Vol] 11 mmol/L 10 - 20 MG- [facility]m [facility] [place] [facility] [place] [facility] Work Phone: AST With P-5'-P [Catalytic activity/Vol] 13 U/L 9 - 39 MG-Pul[facility] [place] [address] [facility] Work Phone: Bilirubin [Mass/Vol] 0.6 mg/dL 0.0 - 1.2 MG-P ulm [facility] [place] [address] [facility] Work Phone: Calcium [Mass/Vol] 9.6 mg/dL 8.6 - 10.3 MG-Pul m [facility] [place] [address] [facility] Work Phone: Chloride [Moles/Vol] 103 mmol/L 98 - 107 MG-P ulm [facility] [place] [address] [facility] Work Phone: CO2 [Moles/Vol] 29 mmol/L 21 - 32 MG-Pul[facility] [place] [address] [facility] Work Phone: Creatinine [Mass/Vol] 1.07 mg/dL See Below MG- Pulm [facility] [place] [address] [facility] Work Phone: Comment on above: Reference Range: 0.5 0 - 1.30 Glucose [Mass/Vol] 98 mg/dL 74 - 99 MG-Pul m [facility] [place] [address] [facility] Work Phone: IgA [Mass/Vol] 133 mg/dL 70 - 400 MG-Medicin goldie Herrera Benítez Work Phone: Comment on above: MONOCLONAL PROTEINS MAY CAUSE FALSELY LOWRESULTS IN THIS ASSAY. SERUM PROTEINELECTROPHORESIS SHOULD BE DONE THEFIRST TEST TO EVALUATE MONOCLONAL GAMMOPATHY. IgG [Mass/Vol] 1060 mg/dL 700 - 1600 MG-Medicin e g-NosticsIzaiah [employer] Work Phone: Comment on above: MONOCLONAL PROTEINS MAY CAUSE FALSELY LOWRESULTS IN THIS ASSAY. SERUM PROTEINELECTROPHORESIS SHOULD BE DONE THEFIRST TEST TO EVALUATE MONOCLONAL GAMMOPATHY. IgM [Mass/Vol] 75 mg/dL 40 - 230 MG-Medicin e Done.Izaiah [employer] Work Phone: Comment on above: MONOCLONAL PROTEINS [...] RACE VARIABLE FOR THE IDMS-TRACEABLE CREATININE METHODS.https://jasn.asnjournals.org/content// ASN.4851217517 Reticulocyte Counton 022 Reticulocyte Count 35 pg 28 - 38 MG-Pul m [place] [address] Sleep Work Phone: Reticulocyte Count 12.6 % 0.0 - 16.0 MG-Pul m [place] [address] Sleep Work Phone: Reticulocyte Count 0.065 {x10E12/L} See Below MG-Pulm [place] [address] Sleep Work Phone: Comment on above: Reference Range: 0.0 22 - 0.118 Reticulocyte Count 1.4 % 0.5 - 2.0 MG-Pul m [place] [address] Sleep Work Phone: Sedimentation Rate, Erythroc yteon 05-17-2021 ESR (Bld) [Velocity] 16 mm/h 0 - 20 MG-P ulm [place] [address] Sleep Work Phone: Tobacco Screening.on 022 Fall risk assessment a) No falls within the last year MG-[employer] DigitalCovina trammell Work Phone: Tobacco use status [facility] a) Yes M G-Otolaryn [employer]ina [employer] Work Phone: Tobacco Screening. Yes [facility]-[place] laryn Hoj[facility]Military [facility] Work Phone: CT Chest Low Dose for Lung S creening w/o Contraston 04-21-2021 CT Chest for screening Normal MG -Pulm [place] [address] Sleep Work Phone: Complete Blood Count + Diffe rentialon 04-14-2021 Basophils/100 WBC (Bld) 0.1 % 0.0 - 2.0 M G-Otolaryn gology-Randa man Voice Work Phone: [phone] Erythrocyte distribution width (RBC) [Ratio] 13.7 % See Below Fariba wasserman [employer] Work Phone: [phone] Comment on above: Reference Range: 11. 5 - 14.5 Hematocrit (Bld) [Volume fraction] 47.6 % See Below Fariba [employer] Work Phone: [phone] Comment on above: Reference Range: 41. 0 - 52.0 Hemoglobin (Bld) [Mass/Vol] 15.5 g/dL See Below Fariba [employer]erman [employer] Work Phone: [phone] Comment on above: Reference Range: 13. 5 - 17.5 Lymphocytes/100 WBC (Bld) 7.3 % See Below Fariba [employer] Work Phone: [phone] Comment on above: Reference Range: 13. 0 - 44.0 MCHC (RBC) [Mass/Vol] 32.6 g/dL See Below ISRA wasserman [employer] Work Phone: [phone] Comment on above: Reference Range: 32. 0 - 36.0 MCV (RBC) [Entitic vol] 101 fL above hi gh threshold 80 - 100 Fariba wasserman [employer] Work Phone: [phone] Monocytes/100 WBC (Bld) 4.3 % 2.0 - 10.0 M Vic wasserman [employer] Work Phone: [phone] Neutrophils/100 WBC (Bld) 88.2 % See Below Fariba wasserman [employer] Work Phone: [phone] Comment on above: Reference Range: 40. 0 [...] No falls within the last year -Pediatri cs-[place] 204 DO Work Phone: Tobacco use status CPHS a) Yes M G-Pediatri cs-[place] 204 DO Work Phone: Tobacco Screening. Yes MG-Ped iatri cs-[place] 204 DO Work Phone: Tobacco Screening.on 022 Fall risk assessment a) No falls within the last year [facility] [place] [facility] Work Phone: Tobacco use status CPHS a) Yes M G-[facility] [facility] Work Phone: Complete Blood Count + Diffe rentialon 03-17-2021 Basophils/100 WBC (Bld) 0.1 % 0.0 - 2.0 M Nikbrooklynbayron jacobsNessa wasserman Voice Work Phone: [phone] Erythrocyte distribution width (RBC) [Ratio] 14.2 % See Below [facility] jacobsmariferRanda wasserman Voice Work Phone: [phone] Comment on above: Reference Range: 11. 5 - 14.5 Hematocrit (Bld) [Volume fraction] 45.7 % See Below [facility]tbrooklynbayron jacobsmariferRanda doniphan Voice Work Phone: Comment on above: Reference Range: 41. 0 - 52.0 Hemoglobin (Bld) [Mass/Vol] 14.9 g/dL See Below [facility]tbrooklynbayron jacobsmariferRanda wasserman Voice Work Phone: [phone] Comment on above: Reference Range: 13. 5 - 17.5 Lymphocytes/100 WBC (Bld) 7.0 % See Below [facility]tbrooklynbayron jacobsmariferRanda doniphan Voice Work Phone: [phone] Comment on above: Reference Range: 13. 0 - 44.0 MCHC (RBC) [Mass/Vol] 32.6 g/dL See Below [facility] [place] Otbrooklynbayron jacobsy-Randa wasserman [employer] Work Phone: Comment on above: Reference Range: 32. 0 - 36.0 MCV (RBC) [Entitic vol] 99 fL 80 - 100 M AkshatOtbrooklynyn Martine wasserman Voice Work Phone: [phone] Monocytes/100 WBC (Bld) 3.0 % 2.0 - 10.0 M G-Otolarbayron kaye-Randa wasserman Voice Work Phone: [phone] Neutrophils/100 WBC (Bld) 89.8 % See Below MG-Otolarbayron wasserman Voice Work Phone: [phone] Comment on above: Reference Range: 40. 0 - 80.0 Platelets (Bld) [#/Vol] 150 10*3/uL 150 - 450 MG-Otolarbayron kaye-Randa wasserman [employer] Work Phone: [phone] RBC (Bld) [#/Vol] 4.61 {x10E12/L} See Below MG -Otolarbayron kaye-Randa wasserman Voice Work Phone: [phone] Comment on above: Reference Range: 4.5 0 - 5.90 WBC (Bld) [#/Vol] 10.1 10*3/uL 4.4 - 11.3 MG-Ot myra wasserman [employer] Work Phone: [phone] Complete Blood Count + Differential 0.01 {x10E9/L} See Below MG-Otolarbayron kaye-Randa wasserman [employer] Work Phone: [phone] Comment on above: Reference Range: 0.0 0 - 0.10 Reference Range: 0.0 0 - 0.70 Complete Blood Count + Differential 0.30 {x10E9/L} See Below MG-Otolarbayron watsony-Randa wasserman [employer] Work Phone: [phone] Comment on above: Reference Range: 0.1 0 - 1.00 Complete Blood Count + Differential 0.71 {x10E9/L} below low threshold See Below MG-Otolarbayron jacobsogy-Randa wasserman [employer] Work Phone: [phone] Comment on above: Reference Range: 1.2 0 [...] a) No falls within the last year [facility] Work Phone: [phone] Tobacco use status [facility]PHS a) Yes [facility] Work Phone: [phone] Respiration Normal [facility] Work Phone: [phone] Respiration Adult [facility] Work Phone: [phone] Respiration Yes [facility] Work Phone: [phone] Panel Informationon 03-01 184CC [facility] [place] Work Phone: [phone] Tobacco Screening.on Fall risk assessment a) No falls within the last year [facility] [place] Work Phone: [phone] Tobacco use status CPHS a) Yes M P-[facility]- [place] Work Phone: [phone] Tobacco Screening. Yes MP-Uro logy- [place] Work Phone: [phone] C1Q Complementon 02-27-2021 Complement C1q [Mass/Vol] 15.8 mg/dL 10.2-20.3 MG-Pediatri cs-[place] 204 DO Work Phone: Tobacco Screening.on Fall risk assessment a) No falls within the last year [facility]iatri [facility]-[place] 204 DO Work Phone: Tobacco use status CPHS a) Yes M G-Pediatri cs-[place] 204 DO Work Phone: Tobacco Screening. Yes MG-Ped iatri cs-[place] 204 DO Work Phone: Carbon Monoxide, Whole Blood on 02-15-2021 Carboxyhemoglobin (Bld) [Mass fraction] 8.0 % above high threshold 0.0-3.6 [employer] Work Phone: Comment on above: Environmental Exposu re: Nonsmokers <3.7 Smokers <9.9 Occupational Exposure: MICK 3.5 Detection Limit = 0.2 Complete Blood Count + Diffe rentialon 02-15-2021 Basophils/100 WBC (Bld) 0.3 % 0.0 - 2.0 M [employer] 1500 Work Phone: Erythrocyte distribution width (RBC) [Ratio] 13.7 % See Below [employer] Work Phone: Comment on above: Reference Range: 11. 5 - 14.5 Hematocrit (Bld) [Volume fraction] 49.4 % See Below [employer] Work Phone: Comment on above: Reference Range: 41. 0 - 52.0 Hemoglobin (Bld) [Mass/Vol] 16.5 g/dL See Below [employer] Work Phone: Comment on above: Reference Range: 13. 5 - 17.5 Lymphocytes/100 WBC (Bld) 9.5 % See Below [employer] Work Phone: Comment on above: Reference Range: 13. 0 - 44.0 MCHC (RBC) [Mass/Vol] 33.4 g/dL See Below [employer] 1500 Work Phone: Comment on above: Reference Range: 32. 0 - 36.0 MCV (RBC) [Entitic vol] 97 fL 80 - 100 M [employer]Clerk[employer] Work Phone: Monocytes/100 WBC (Bld) 2.9 % 2.0 - 10.0 M [employer] Work Phone: Neutrophils/100 WBC (Bld) 86.3 % See Below MG-[facility]etics -[place] [address] Work Phone: Comment on above: Reference Range: 40. 0 - 80.0 Platelets (Bld) [#/Vol] 158 10*3/uL 150 - 450 [facility] -[place] [address] Work Phone: RBC (Bld) [#/Vol] 5.08 {x10E12/L} See Below MG -Genetics -[place] [address] Work Phone: Comment on above: Reference Range: 4.5 0 - 5.90 WBC (Bld) [#/Vol] 11.7 10*3/uL above high threshold 4.4 - 11.3 [facility] -[place] [address] Work Phone: Complete Blood Count + Differential 0.03 {x10E9/L} See Below [facility] -[place] [address] Work Phone: Comment on above: Reference Range: 0.0 0 - 0.10 Complete Blood Count + Differential 0.01 {x10E9/L} See Below [facility] -[place] [address] Work Phone: Comment on above: Reference Range: 0.0 0 - 0.70 Complete Blood Count + Differential 0.34 {x10E9/L} See Below [facility] -[place] [address] Work Phone: Comment on above: Reference Range: 0.1 0 - 1.00 Complete Blood Count + Differential 1.11 {x10E9/L} below low threshold See Below [facility] -[place] [address] Work Phone: Comment on above: Reference Range: 1.2 0 - 4.80 Complete Blood Count + Differential 10.08 {x10E9/L} above high threshold See Below [facility] -[place] [address] Work Phone: Comment on above: Reference Range: 1.2 0 - 7.70 Complete Blood Count + Differential 0.1 % 0.0 - 6.0 [facility] -[place] [address] Work Phone: Complete Blood Count + Differential 0.9 % 0.0 - 0.9 [facility] -[place] [address] Work Phone: Comment on above: Immature Granulocyte Count (IG) includes promyelocytes, myelocytes and metamyelocytes but does not include bands. Percent differential counts (%) should be interpreted in the context of the absolute cell counts (cells/L). Erythropoietin Assayon 02-15 Erythropoietin (EPO) Qn 7.6 {mIU/mL} 2.6-18.5 [facility] 1500 Work Phone: Comment on above: [employer] el DxI 800 Immunoassay SystemValues obtained with different assay methods or kits cannot be usedinterchangeably. Results cannot be interpreted as absolute evidenceof the presence or absence of malignant disease. Gamma Glutamyl Transferase, Serumon 02-15-2021 Gamma glutamyl transferase [Catalytic activity/Vol] 53 U/L 5 - 64 [place] [address] Work Phone: Immunoglobulin E Level, Seru mon 02-15-2021 IgE Qn 211 {IU/mL} 0 - 214 [facility] 1500 Work Phone: Laboratory - Chemistry and C hemistry - challengeon 02-15-2021 Albumin BCP dye [Mass/Vol] 4.5 g/dL 3.4 - 5.0 [facility] 1500 Work Phone: ALP [Catalytic activity/Vol] 66 U/L 33 - 136 [facility] 1500 Work Phone: ALT With P-5'-P [Catalytic activity/Vol] 21 U/L 10 - 52 [facility] 1500 Work Phone: Comment on above: Patients treated wit h Sulfasalazine may generate falsely decreased results for ALT. Anion gap [Moles/Vol] 11 mmol/L 10 - 20 [facility] 1500 Work Phone: AST With P-5'-P [Catalytic activity/Vol] 12 U/L 9 - 39 [facility] 1500 Work Phone: Bilirubin [Mass/Vol] 0.8 mg/dL 0.0 - 1.2 [facility] -[place] 1500 Work Phone: [phone] Calcium [Mass/Vol] 10.0 mg/dL 8.6 - 10.3 [facility] -[place] 1500 Work Phone: [phone] Chloride [Moles/Vol] 100 mmol/L 98 - 107 [facility] -[place] 1500 Work Phone: [phone] CO2 [Moles/Vol] 31 mmol/L 21 - 32 [facility] 1500 Work Phone: [phone] Creatinine [Mass/Vol] 1.02 mg/dL See Below [facility] 1500 Work Phone: [phone] Comment on above: Reference Range: 0.5 0 - 1.30 Glucose [Mass/Vol] 112 mg/dL above high threshold 74 - 99 [facility] 1500 Work Phone: [phone] Iron [Mass/Vol] 119 ug/dL 35 - 150 [facility] 1500 Work Phone: [phone] Iron binding capacity [Mass/Vol] 388 ug/dL 240 - 445 [facility] 1500 Work Phone: [phone] LDH [Catalytic activity/Vol] 156 U/L 84 - 246 [facility] 1500 Work Phone: [phone] Potassium [Moles/Vol] 4.4 mmol/L 3.5 - 5.3 [facility] 1500 Work Phone: [phone] Protein [Mass/Vol] 7.4 g/dL 6.4 - 8.2 [facility] 1500 Work Phone: [phone] Sodium [Moles/Vol] 138 mmol/L 136 - 145 [facility] -[place] 1500 Work Phone: [phone] Urea nitrogen [Mass/Vol] 14 mg/dL 6 - 23 [facility] 1500 Work Phone: [phone] No Panel Informationon 02-15 Not detected See Below [facility] 1500 Work Phone: Comment on above: Reference [...] not met (Almanza C, et al. Haematologica. 2014;99(9):4643-9266. Yamilet Jones, et al. Haematologica. 2014;99(7):k473-d293.). Detection of the JAK2 V617F mutation at [...] extraction and testing is performed in the [facility] ([facility]) located at [address] [place] [address] (CLIA License #[id number], CAP #[id number]).DISCLAIMER: This test was developed and its analytical performance characteristics have been determined by [facility] ([facility]) part of the Department of Pathology at [facility]. This test has not been cleared or approved by the FDA; however, the FDA has determined that such approval is not necessary. The [facility] is CAP accredited and certified under the Clinical Laboratory Improvement Amendments of 1988 (CLIA-88) as qualified to perform high complexity testing. Reference Range: NOT DETECTEDMRN: [id number] PatientName: KELSEY FRAZIER NOT DETECTED METHODOLOGY:RNA isolated from peripheral blood or bone marrow was reverse transcribedto cDNA. M-bcr (b2a2 and b3a2 aka p210 Major) or m-bcr (e1a2 aka [id number]) fusion transcripts are assessed by quantitative real-time [...] and corresponding conversion factor. Testing was performedat [facility] ([facility]) located at [address] [place], [place] [address] [address] (CLIA License [id number], CAP [id number]). DISCLAIMER:This test was developed at [facility] ([id number], CAP [id number]). Testing was performed at [facility] ([facility]) located at [address] [place] [address] [address] [place] [address] (CLIA License [id number], CAP [id number]). It has notbeen cleared or approved by the FDA. The FDA has determined that suchclearance or approval is not necessary. This test is used for clinicalpurposes. It should not be regarded as investigational or for research.This laboratory is certified under the Clinical Laboratory ImprovementAmendments of 1988 (CLIA-88) as qualified to perform high complexityclinical laboratory testing. SEE COMMENT [facility] [facility] 1500 Work Phone: Comment on above: Normal 2.9 % [facility] 1500 Work Phone: Comment on above: HGB A2 values may be falsely elevated in the presence of HGB S. 0.5 % [facility] 1500 Work Phone: 96.6 % [facility] 1500 Work Phone: 31 % 25 - 45 [facility] 1500 Work Phone: >60 >60 [facility] 1500 Work Phone: Comment on above: CALCULATIONS OF LILI MATED GFR ARE PERFORMED USING THE MDRD STUDY EQUATION FOR THE IDMS-TRACEABLE CREATININE METHODS. CLIN CHEM 2007;53:766-72 Path Review-HGB Identifleroy onon 02-15-2021 Path Review-HGB Identification MELVIN [facility] 1500 Work Phone: Comment on above: By her/his signature above, the Pathologist listed as making the final interpretation certifies that she/he has personally reviewed this case. Reticulocyte Counton Reticulocyte Count 38 pg 28 - 38 [facility] -[place] 1500 Work Phone: Reticulocyte Count 9.5 % 0.0 - 16.0 [facility] 1500 Work Phone: Reticulocyte Count 0.079 {x10E12/L} See Below [facility] 1500 Work Phone: Comment on above: Reference Range: 0.0 22 - 0.118 Reticulocyte Count 1.6 % 0.5 - 2.0 [facility] 1500 Work Phone: Sedimentation Rate, Erythroc yteon 02-15-2021 ESR (Bld) [Velocity] 14 mm/h 0 - 20 [facility] -[place] 1500 Work Phone: Uric Acid, Serumon Urate [Mass/Vol] 5.6 mg/dL 4.0 - 7.5 [facility] -[place] 1500 Work Phone: Comment on above: Venipuncture immedia tely after or during the administration of Metamizole may lead to falsely low results. Testing should be performed immediately prior to Metamizole dosing. IO UA (automated w/o microsc opy)on 01-25-2021 Protein (U) [Mass/Vol] Negative [facility] [address] [facility] Work Phone: IO UA (automated w/o microscopy) Negative [place] [address] DO Work Phone: IO UA (automated w/o microscopy) Normal (0.2-1.0 mg/dl) -U[place] [address] DO Work Phone: IO UA (automated w/o microscopy) 6.0 1 [facility] [place] [address] DO Work Phone: IO UA (automated w/o microscopy) Trace [place] [address] DO Work Phone: IO UA (automated w/o microscopy) 1.025 1 [facility] [place] [address] DO Work Phone: IO UA (automated w/o microscopy) Clear [facility] [place] [address] DO Work Phone: IO UA (automated w/o microscopy) Yellow [facility] [place] [address] DO Work Phone: IO Ultrasound, measurement p ost-void resid urine and/or bl cap; no imagon 01-25-2021 IO Ultrasound, measurement post-void resid urine and/or bl cap; no imag 324 ml/min [facility]rolog[place] [address] DO Work Phone: Tobacco Screening.on 021 Fall risk assessment a) No falls within the last year [place] [address] DO Work Phone: Tobacco use status CP a) Yes M [place] [address] DO Work Phone: Tobacco Screening. Yes [place] [address] DO Work Phone: C-1 Esterase Inhibitor Total , Serumon 01-18-2021 Complement C1 esterase inhibitor [Mass/Vol] 37 mg/dL 21-39 [place] [address] DO Work Phone: [phone] C1 Esterase Inhibitor, Funct ionalon 01-18-2021 Complement C1 esterase inhibitor.functional/Co mplement C1 esterase inhibitor.total [Mass fraction] >91 [place] [address] DO Work Phone: Comment on above: Abnormal <41 Equivoc al 41 - 67 Normal >67 C4 Complement, Serumon 01-18 Complement C4 [Mass/Vol] 35 mg/dL 10 - 50 [place] [address] DO Work Phone: Laboratory - Chemistry and C hemistry - challengeon 01-18-2021 Albumin BCP dye [Mass/Vol] 4.6 g/dL 3.4 - 5.0 [place] [address] DO Work Phone: ALP [Catalytic activity/Vol] 91 U/L 33 - 136 [place] [address] DO Work Phone: ALT With P-5'-P [Catalytic activity/Vol] 24 U/L 10 - 52 [place] [address] DO Work Phone: Comment on above: Patients treated wit h Sulfasalazine may generate falsely decreased results for ALT. Anion gap [Moles/Vol] 17 mmol/L 10 - 20 [place] [address] DO Work Phone: AST With P-5'-P [Catalytic activity/Vol] 13 U/L 9 - 39 [place] [address] DO Work Phone: Bilirubin [Mass/Vol] 1.2 mg/dL 0.0 - 1.2 MP-U [place] [address] DO Work Phone: Calcium [Mass/Vol] 10.0 mg/dL 8.6 - 10.6 -[place] [address] DO Work Phone: Chloride [Moles/Vol] 98 mmol/L 98 - 107 MP-[facility] [place] [address] DO Work Phone: CO2 [Moles/Vol] 28 mmol/L 21 - 32 [place] [address] DO Work Phone: [phone] Creatinine [Mass/Vol] 1.11 mg/dL See Below [place] [address] DO Work Phone: Comment on above: Reference Range: 0.5 0 - 1.30 Glucose [Mass/Vol] 92 mg/dL 74 - 99 [place] [address] DO Work Phone: IgA [Mass/Vol] 165 mg/dL 70 - 400 [place] [address] DO Work Phone: Comment on above: MONOCLONAL PROTEINS MAY CAUSE FALSELY LOWRESULTS IN THIS ASSAY. SERUM PROTEINELECTROPHORESIS SHOULD BE DONE THEFIRST TEST TO EVALUATE MONOCLONAL GAMMOPATHY. IgG [Mass/Vol] 1230 mg/dL 700 - 1600 [place] [address] DO Work Phone: Comment on above: MONOCLONAL PROTEINS MAY CAUSE FALSELY LOWRESULTS IN THIS ASSAY. SERUM PROTEINELECTROPHORESIS SHOULD BE DONE THEFIRST TEST TO EVALUATE MONOCLONAL GAMMOPATHY. IgM [Mass/Vol] 95 mg/dL 40 - 230 [place] [address] DO Work Phone: Comment on above: MONOCLONAL PROTEINS MAY CAUSE FALSELY LOWRESULTS IN THIS ASSAY. SERUM PROTEINELECTROPHORESIS SHOULD BE DONE THEFIRST TEST TO EVALUATE MONOCLONAL GAMMOPATHY. Potassium [Moles/Vol] 4.3 mmol/L 3.5 - 5.3 [place] [address] DO Work Phone: Sodium [Moles/Vol] 139 mmol/L 136 - 145 [place] [address] DO Work Phone: Urea nitrogen [Mass/Vol] 15 mg/dL 6 - 23 [place] [address] DO Work Phone: Laboratory - Hematology and Cell countson 01-18-2021 Granulocytes/100 WBC (Bld) 82 % [place] [address] DO Work Phone: Lymphocytes/100 WBC (Bld) 11 % [place] [address] DO Work Phone: Monocytes/100 WBC (Bld) 4 % M -[place] [address] DO Work Phone: No Panel Informationon 01-18 RAMYA [place] [address] DO Work Phone: Comment on above: By her/his signature above, the Pathologist listed as making the final interpretation certifies that she/he has personally reviewed this case. ACUTE PANEL [place] [address] DO Work Phone: WHOLE BLD-EDTA [place] [address] DO Work Phone: SEE BELOW [place] [address] DO Work Phone: Comment on above: This test is a multi color, whole blood lysis assay. It was developed and its performance characteristics determined by the Department of Pathology, [facility], and has not been cleared or approved [...] CD13, CD5, CD2, CD177, CD163, CD11b, CD16, Kirkman, Lambda, CD9, CD22. No increased or abno rmal myeloblast population detected.No immunophenotypic abnormalities of monocytes or granulocytes.No immunophenotypic evidence of a lymphoproliferative disorder. 18 {%_of_Lymph} [place] [address] DO Work Phone: Comment on above: PolyclonalKappa/Varela da= 58:42 13 {%_of_Lymph} [place] [address] DO Work Phone: 53 {%_of_Lymph} MP-Urolog y- [facility] 232 DO Work Phone: [phone] 100,000 MP-Urology- [facility] 232 DO Work Phone: [phone] 12.85 {x10E9/L} MP-Urolog y- [facility] 232 DO Work Phone: [phone] Acceptable MP-Urology- [facility] 232 DO Work Phone: [phone] Comment on above: Flow cytometry resul ts should be interpreted in the context of morphology. Flow cytometry findings may be unreliable due to sampling issues, differential loss or recovery of cell populations ex vivo, or low viability. Peripheral Blood -Urolo gy- [facility] 232 DO Work Phone: [phone] 1.27 1 See Below [facility] 232 DO Work Phone: [phone] Comment on above: Reference Range: 0.2 6 [...] the testing laboratory. 1.50 mg/dL See Below [facility] MEXICOUrologyKimberly [place]ille [address] DO Work Phone: [phone] Comment on above: Reference Range: 0.5 7 - 2.63 1.91 mg/dL See Below [facility]rologyRich[facility] Center 232 DO Work Phone: [phone] Comment on above: Reference Range: 0.3 3 - 1.94 >60 >60 -[place]rologyKim[place] [address] DO Work Phone: Comment on above: CALCULATIONS OF LILI MATED GFR ARE PERFORMED USING THE MDRD STUDY EQUATION FOR THE IDMS-TRACEABLE CREATININE METHODS. CLIN CHEM 2007;53:766-72 PROTEIN ELECTROPHORESIS,SERU 01-18-2021 Albumin [Mass/Vol] 4.4 g/dL 3.4 - 5.0 -Uro logy- [facility] 232 DO Work Phone: Protein [Mass/Vol] 7.5 g/dL 6.4 - 8.2 [facility] MEXICOUro logMichael [place] [address] DO Work Phone: [phone] PROTEIN ELECTROPHORESIS,SERUM NORMAL [place] [address] DO Work Phone: [phone] PROTEIN ELECTROPHORESIS,SERUM 1.1 g/dL 0.5 - 1.4 [place] [address] DO Work Phone: PROTEIN ELECTROPHORESIS,SERUM 0.8 g/dL 0.5 - 1.2 [place] [address] DO Work Phone: [phone] PROTEIN ELECTROPHORESIS,SERUM 0.9 g/dL 0.4 - 1.1 [place] [address] DO Work Phone: PROTEIN ELECTROPHORESIS,SERUM 0.3 g/dL 0.2 - 0.6 [place] [address] DO Work Phone: Path Review Blake 01-18-2021 Path Review JOSE SHEETS [place] [address] DO Work Phone: Comment on above: By her/his signature above, the Pathologist listed as making the final interpretation certifies that she/he has personally reviewed this case. C Reactive Protein, Serumon 12-28-2020 CRP [Mass/Vol] 0.12 mg/dL [place] [address] DO Work Phone: Comment on above: REF VALUE< 1.00 C-1 Esterase Inhibitor Total , Serumon 12-28-2020 Complement C1 esterase inhibitor [Mass/Vol] 31 mg/dL 21-39 [place] [address] DO Work Phone: C1 Esterase Inhibitor, Funct ionalon 12-28-2020 Complement C1 esterase inhibitor.functional/Co mplement C1 esterase inhibitor.total [Mass fraction] 84 {%mean_normal} [place] [address] DO Work Phone: Comment on above: Abnormal <41 Equivoc al 41 - 67 Normal >67 C4 Complement, Serumon 12-28 Complement C4 [Mass/Vol] 25 mg/dL 10 - 50 [facility] 232 DO Work Phone: [phone] Complete Blood Count + Diffe rentialon 12-28-2020 Basophils/100 WBC (Bld) 0.1 % 0.0 - 2.0 [place] [address] DO Work Phone: [phone] Erythrocyte distribution width (RBC) [Ratio] 13.7 % See Below [place] [address] DO Work Phone: [phone] Comment on above: Reference Range: 11. 5 - 14.5 Hematocrit (Bld) [Volume fraction] 48.7 % See Below [place] [address] DO Work Phone: [phone] Comment on above: Reference Range: 41. 0 - 52.0 Hemoglobin (Bld) [Mass/Vol] 16.3 g/dL See Below [place] [address] DO Work Phone: [phone] Comment on above: Reference Range: 13. 5 - 17.5 Lymphocytes/100 WBC (Bld) 12.8 % See Below [place] [address] DO Work Phone: Comment on above: Reference Range: 13. 0 - 44.0 MCHC (RBC) [Mass/Vol] 33.5 g/dL See Below [place] [address] DO Work Phone: [phone] Comment on above: Reference Range: 32. 0 - 36.0 MCV (RBC) [Entitic vol] 99 fL 80 - 100 [place] [address] DO Work Phone: Monocytes/100 WBC (Bld) 3.1 % 2.0 - 10.0 M [place] [address] DO Work Phone: Neutrophils/100 WBC (Bld) 83.2 % See Below [place] [address] DO Work Phone: Comment on above: Reference Range: 40. 0 - 80.0 Platelets (Bld) [#/Vol] 151 10*3/uL 150 - 450 [place] [address] DO Work Phone: RBC (Bld) [#/Vol] 4.94 {x10E12/L} See Below [place] [address] DO Work Phone: Comment on above: Reference Range: 4.5 0 - 5.90 WBC (Bld) [#/Vol] 7.4 10*3/uL 4.4 - 11.3 [place] [address] DO Work Phone: [phone] Complete Blood Count + Differential 0.7 % 0.0 - 0.9 [place] [address] DO Work Phone: [phone] Comment on above: Immature Granulocyte Count (IG) includes promyelocytes, myelocytes and metamyelocytes but does not include bands. Percent differential counts (%) should be interpreted in the context of the absolute cell counts (cells/L). Complete Blood Count + Differential 0.01 {x10E9/L} See Below [place] [address] DO Work Phone: [phone] Comment on above: Reference Range: 0.0 0 - 0.10 Reference Range: 0.0 0 - 0.70 Complete Blood Count + Differential 0.23 {x10E9/L} See Below [place] [address] DO Work Phone: [phone] Comment on above: Reference Range: 0.1 0 - 1.00 Complete Blood Count + Differential 0.95 {x10E9/L} below low threshold See Below [place] [address] DO Work Phone: [phone] Comment on above: Reference Range: 1.2 0 - 4.80 Complete Blood Count + Differential 6.17 {x10E9/L} See Below [place] [address] DO Work Phone: [phone] Comment on above: Reference Range: 1.2 0 - 7.70 Complete Blood Count + Differential 0.1 % 0.0 - 6.0 [place] [address] DO Work Phone: Ferritin, Serumon 12-28-2020 Ferritin [Mass/Vol] 360 ug/L above high threshold 20 - 300 [facility] M[facility]IC[facility]rologyKimberly [place] [address] DO Work Phone: Fibrinogen Assayon Fibrinogen Assay 330 mg/dL 200 - 400 [facility] gyKim[place] [address] DO Work Phone: Immunoglobulin E Level, Seru mon 12-28-2020 IgE Qn 388 {IU/mL} above high threshold 0 - 214 [facility]IC[facility]rologyKim[place] [address] DO Work Phone: Laboratory - Chemistry and C hemistry - challengeon 12-28-2020 Albumin BCP dye [Mass/Vol] 4.6 g/dL 3.4 - 5.0 [facility] M[facility]IC[facility]rologyKim[place] [address] DO Work Phone: ALP [Catalytic activity/Vol] 54 U/L 33 - 136 [facility] [place] [address] DO Work Phone: ALT With P-5'-P [Catalytic activity/Vol] 24 U/L 10 - 52 [facility] [place] [address] DO Work Phone: Comment on above: Patients treated wit h Sulfasalazine may generate falsely decreased results for ALT. Anion gap [Moles/Vol] 13 mmol/L 10 - 20 [place] [address] DO Work Phone: AST With P-5'-P [Catalytic activity/Vol] 17 U/L 9 - 39 [facility] M[facility]IC[facility]rologyKim[place] [address] DO Work Phone: Bilirubin [Mass/Vol] 0.7 mg/dL 0.0 - 1.2 [facility] [address] DO Work Phone: Calcium [Mass/Vol] 9.6 mg/dL 8.6 - 10.3 -Uro [place]Kim[place] [address] DO Work Phone: Chloride [Moles/Vol] 104 mmol/L 98 - 107 MP-U [place] [address] DO Work Phone: CO2 [Moles/Vol] 27 mmol/L 21 - 32 [place] [address] DO Work Phone: [phone] Creatinine [Mass/Vol] 0.99 mg/dL See Below [place] [address] DO Work Phone: [phone] Comment on above: Reference Range: 0.5 0 - 1.30 Glucose [Mass/Vol] 117 mg/dL above high threshold 74 - 99 [place] [address] DO Work Phone: IgA [Mass/Vol] 154 mg/dL 70 - 400 [place] [address] DO Work Phone: [phone] Comment on above: MONOCLONAL PROTEINS MAY CAUSE FALSELY LOWRESULTS IN THIS ASSAY. SERUM PROTEINELECTROPHORESIS SHOULD BE DONE THEFIRST TEST TO EVALUATE MONOCLONAL GAMMOPATHY. IgG [Mass/Vol] 1120 mg/dL 700 - 1600 [place] [address] DO Work Phone: [phone] Comment on above: MONOCLONAL PROTEINS MAY CAUSE FALSELY LOWRESULTS IN THIS ASSAY. SERUM PROTEINELECTROPHORESIS SHOULD BE DONE THEFIRST TEST TO EVALUATE MONOCLONAL GAMMOPATHY. IgM [Mass/Vol] 91 mg/dL 40 - 230 [place] [address] DO Work Phone: [phone] Comment on above: MONOCLONAL PROTEINS MAY CAUSE FALSELY LOWRESULTS IN THIS ASSAY. SERUM PROTEINELECTROPHORESIS SHOULD BE DONE THEFIRST TEST TO EVALUATE MONOCLONAL GAMMOPATHY. Iron [Mass/Vol] 80 ug/dL 35 - 150 [place] [address] DO Work Phone: Iron binding capacity [Mass/Vol] 391 ug/dL 240 - 445 [place] [address] DO Work Phone: LDH [Catalytic activity/Vol] 155 U/L 84 - 246 [place] [address] DO Work Phone: Potassium [Moles/Vol] 4.3 mmol/L 3.5 - 5.3 [place] [address] DO Work Phone: Sodium [Moles/Vol] 140 mmol/L 136 - 145 -[place] [address] DO Work Phone: Thyroglobulin [Mass/Vol] Not Applicable 1.3-31.8 [place] [address] DO Work Phone: Comment on above: INTERPRETIVE INFORMA TION: Thyroglobulin by LC-MS/MS, Serum/PlasmaLower limit of detection for Thyroglobulin by LC-MS/MS is 0.5 ng/mL.This test was developed and its performance characteristics determined by [facility]. It has not been cleared or approved by the [place] Food and Drug Administration. This test was performed in a CLIA certified laboratory and is intended for clinical purposes.Performed By: [facility] [place] [id number] Director: Jazlyn Lau MD Thyroglobulin [Mass/Vol] <0.1 below low threshold 1.3-31.8 [place] [address] DO Work Phone: Comment on above: INTERPRETIVE [...] nitrogen [Mass/Vol] 20 mg/dL 6 - 23 [place] [address] DO Work Phone: Laboratory - Coagulationon 02-28-2020 aPTT Coag (PPP) [Time] 23 s below low threshold 25 - 35 [place] [address] DO Work Phone: Comment on above: THE APTT IS NO LONGE R USED FOR MONITORING UNFRACTIONATED HEPARIN THERAPY. FOR MONITORING HEPARIN THERAPY, USE THE HEPARIN ASSAY. Fibrin D-dimer DDU (PPP) [Mass/Vol] 462 {ng/mL_FEU} = 500 [place] [address] DO Work Phone: Comment on above: THE D-DIMER ASSAY IS REPORTED IN NG/ML FIBRINOGEN EQUIVALENT UNITS (FEU).THE RESULTS OF THIS ASSAY SHOULD NOT BE USED FOR THE EXCLUSION OF DEEP VEIN THROMBOSIS AND/OR PULMONARY EMBOLISM. INR Coag (PPP) [Relative time] 0.9 {INR} 0.9 - 1.1 [place] [address] DO Work Phone: PT Coag (PPP) [Time] 10.8 s See Below MP-U [place] [address] DO Work Phone: Comment on above: Reference Range: 10. 1 - 13.3 Laboratory - Serology - non- microon 12-28-2020 Centromere protein B Ab Qn (S) <0.2 [place] [address] DO Work Phone: Comment on above: REF VALUES < 1.0 = N EGATIVE >=1.0 = POSITIVE Chromatin Ab Qn <0.2 [place] [address] DO Work Phone: Comment on above: REF VALUES < 1.0 = N EGATIVE >=1.0 = POSITIVE DNA double strand Ab Qn (S) [IU]/mL [place] [address] DO Work Phone: Comment on above: REF VALUESNEGATIVE: <= 4 IU/MLEQUIVOCAL: 5- 9 IU/MLPOSITIVE: >=10 IU/ML Medina-1 extractable nuclear Ab IA Ql (S) <0.2 [place] [address] DO Work Phone: Comment on above: REF VALUES < 1.0 = N EGATIVE >=1.0 = POSITIVE Nuclear Ab Hep2 substrate Ql (S) Positive Abnormal NEGATIVE [place] [address] DO Work Phone: Comment on above: The Antinuclear Anti body (SHI) test was performed using indirect immunofluorescence assay with HEp-2 cells slide. Nuclear Ab IF (S) [Titer] 1:160 [place] [address] DO Work Phone: Nuclear Ab pattern (S) [Interp] NUCLEOLAR [place] [address] DO Work Phone: Ribonucleoprotein extractable nuclear Ab IA Qn (S) <0.2 [place] [address] DO Work Phone: Comment on above: REF VALUES < 1.0 = N EGATIVE >=1.0 = POSITIVE Ribosomal P Ab Qn (S) <0.2 [place] [address] DO Work Phone: Comment on above: REF VALUES < 1.0 = N EGATIVE >=1.0 = POSITIVE SCL-70 extractable nuclear Ab IA Ql (S) <0.2 [place] [address] DO Work Phone: Comment on above: REF VALUES < 1.0 = N EGATIVE >=1.0 = POSITIVE Sjogrens syndrome-A extractable nuclear Ab IA Qn (S) <0.2 [place] [address] DO Work Phone: Comment on above: REF VALUES < 1.0 = N EGATIVE >=1.0 = POSITIVE Sjogrens syndrome-B extractable nuclear Ab IA Qn (S) 0.3 {AI} [place] [address] DO Work Phone: Comment on above: REF VALUES < 1.0 = N EGATIVE >=1.0 = POSITIVE Mojica extractable nuclear Ab IA Qn (S) <0.2 [place] [address] DO Work Phone: Comment on above: REF VALUES < 1.0 = N EGATIVE >=1.0 = POSITIVE Mojica extractable nuclear Ab+Ribonucleoprotein extractable nuclear Ab IA Ql (S) <0.2 [place] [address] DO Work Phone: Comment on above: REF VALUES < 1.0 = N EGATIVE >=1.0 = POSITIVE Thyroglobulin Ab Qn [IU]/mL 0.0-4.0 [place] [address] DO Work Phone: Comment on above: INTERPRETIVE INFORMA TION: Thyroglobulin Antibody A value of 4.0 IU/mL or less indicates a negative result for thyroglobulin antibodies.The Thyroglobulin Antibody assay is being performed using the Dre GOQii Access DxI method. MISCELLANEOUS TESTon 021 MISCELLANEOUS TEST Canceled -Uro [facility] 232 DO Work Phone: No Panel Informationon 12-28 1.11 1 See Below [facility] Work Phone: Comment on [...] the testing laboratory. 1.49 mg/dL See Below [facility] DO Work Phone: Comment on above: Reference Range: 0.5 7 - 2.63 1.66 mg/dL See Below [facility] 232 DO Work Phone: Comment on above: Reference Range: 0.3 3 - 1.94 20 % below low threshold 25 - 45 [facility] 232 DO Work Phone: >60 >60 [facility] 232 DO Work Phone: Comment on above: CALCULATIONS OF LILI MATED GFR ARE PERFORMED USING THE MDRD STUDY EQUATION FOR THE IDMS-TRACEABLE CREATININE METHODS. CLIN CHEM 2007;53:766-72 PROTEIN ELECTROPHORESIS,SERU 12-28-2020 Albumin [Mass/Vol] 4.6 g/dL 3.4 - 5.0 -Uro [facility] 232 DO Work Phone: Protein [Mass/Vol] 7.4 g/dL 6.4 - 8.2 -Uro [facility] 232 DO Work Phone: PROTEIN ELECTROPHORESIS,SERUM NORMAL [place] [address] DO Work Phone: PROTEIN ELECTROPHORESIS,SERUM 1.0 g/dL 0.5 - 1.4 [place] [address] DO Work Phone: PROTEIN ELECTROPHORESIS,SERUM 0.8 g/dL 0.5 - 1.2 [place] [address] DO Work Phone: PROTEIN ELECTROPHORESIS,SERUM 0.7 g/dL 0.4 - 1.1 [place] [address] DO Work Phone: PROTEIN ELECTROPHORESIS,SERUM 0.3 g/dL 0.2 - 0.6 [place] [address] DO Work Phone: Path Review SPEon 12-28-2020 Path Review JOSE SHEETS [place] [address] DO Work Phone: Comment on above: By her/his signature above, the Pathologist listed as making the final interpretation certifies that she/he has personally reviewed this case. Prostate Specific Antigenon 12-28-2020 Prostate specific Ag [Mass/Vol] 0.37 ng/mL See Below [place] [address] DO Work Phone: Comment on above: Reference Range: 0.0 0 - 4.00The FDA requires that the method used for PSA assay be reported to the physician. Values obtained with different assay methods must not be used interchangeably. This test was performed at [facility] using the Zorap PSA method, which is a sandwich immunoassay using chemiluminescence for quantitation. The assay is approvedfor measurement of prostate-specific antigen (PSA) in serum and may be used in conjunction with a digital rectalexamination in men 50 years and older as an aid in detection of prostate cancer. 4-Emfdg-nycuniaof inhibitors (e.g. Proscar, Finasteride, Avodart, Dutasteride and Nazia) for the treatment of BPH have been shown to lower PSA levels by an average of 50% after 6 months of treatment. Reticulocyte Counton 021 Reticulocyte Count 39 pg above high threshold 28 - 38 [place] [address] DO Work Phone: [phone] Reticulocyte Count 10.2 % 0.0 - 16.0 -Uro [place] [address] DO Work Phone: [phone] Reticulocyte Count 0.063 {x10E12/L} See Below [place] [address] DO Work Phone: [phone] Comment on above: Reference Range: 0.0 22 - 0.118 Reticulocyte Count 1.3 % 0.5 - 2.0 [facility] [place] [address] DO Work Phone: Sedimentation Rate, Erythroc yteon 12-28-2020 ESR (Bld) [Velocity] 12 mm/h 0 - 20 MP-U [place] [address] DO Work Phone: T4 - Free Thyroxine, Serumon 12-28-2020 Free T4 [Mass/Vol] 1.76 ng/dL above high threshold See Below [place] [address] DO Work Phone: Comment on above: Reference Range: 0.7 8 - 1.48 Thyroxine Free testing is performed using different testing methodology at [facility] than at other [facility]. Direct result comparisons should only be made within the same method. TSH - Thyroid Stimulating Ho rmone, Serumon 12-28-2020 TSH Qn 1.32 m[IU]/L See Below [place] [address] DO Work Phone: [phone] Comment on above: Reference Range: 0.4 4 - 3.98 TSH testing is performed using different testing methodology at [facility] than at other system [facility]. Direct result comparisons should only be made within the same method. Triiodothyronine, Level (T3) on 12-28-2020 T3 [Mass/Vol] 113 ng/dL 60 - 200 [place] [address] DO Work Phone: [phone] Influenza virus A and B and SARS-CoV-2 (COVID-19) Ag panel - Upper respiratory specim SARS-CoV-2 (COVID-19) RNA YOLY+probe Ql (Resp) [facility] Work Phone: RSV Ag EIA RSV Ag Immune stain Ql (Tiss) [facility] Work Phone: Vital Signs Date Time Vital Sign Value Performing Clinician Facility 09-07-2024 15:34-0400 Body mass index (BMI) [Ratio] 29.9 kg/m2 Dr. Biju Lobo DO Work Phone: [facility] 09-07-2024 14:37-0400 Heart rate 80 /min Dr. Biju Lobo DO Work Phone: [facility] 09-07-2024 14:37-0400 SaO2% (BldA) [Mass fraction] 91 % Dr. Biju Lobo DO Work Phone: [facility] 09-07-2024 14:23-0400 Body height 175.[address] Biju Lobo DO Work Phone: [facility] 09-07-2024 14:23-0400 Body weight 92.[address] Biju Lobo DO Work Phone: [facility] 09-07-2024 14:12-0400 Diastolic blood pressure 83 mm[Hg] Dr. Biju Lobo DO Work Phone: [facility] 09-07-2024 14:12-0400 Systolic blood pressure 126 mm[Hg] Dr. Biju Lobo DO Work Phone: [facility] 09-02-2024 08:43-0400 Body mass index (BMI) [Ratio] 30.2 kg/m2 Dr. Biju Lobo DO Work Phone: [facility] 09-02-2024 08:43-0400 Body temperature 97.6 [degF] Dr. Biju Lobo DO Work Phone: [facility] 09-02-2024 08:43-0400 Body weight 92.[address] Biju Lobo DO Work Phone: [facility] 09-02-2024 08:43-0400 Diastolic blood pressure 84 mm[Hg] Dr. Biju Lobo DO Work Phone: [facility] 09-02-2024 08:43-0400 Heart rate 74 /min Dr. Biju Lobo DO Work Phone: [facility] 09-02-2024 08:43-0400 Respiratory rate 20 /min Dr. Biju Lobo DO Work Phone: [facility] 09-02-2024 08:43-0400 SaO2% (BldA) [Mass fraction] 94 % Dr. Biju Lobo DO Work Phone: [facility] 09-02-2024 08:43-0400 Systolic blood pressure 120 mm[Hg] Dr. Biju Lobo DO Work Phone: [facility] 07-23-2024 17:26-0400 Diastolic blood pressure 76 mm[Hg] Dr. Biju Lobo DO Work Phone: [facility] 07-23-2024 17:26-0400 Systolic blood pressure 106 mm[Hg] Dr. Biju Lobo DO Work Phone: [facility] 07-23-2024 11:41-0400 Body temperature 98.6 [degF] Dr. Biju Lobo DO Work Phone: [facility] 07-23-2024 11:41-0400 Body weight 92.[address] Biju Lobo DO Work Phone: [facility] 07-23-2024 11:41-0400 Diastolic blood pressure 81 mm[Hg] Dr. Biju Lobo DO Work Phone: [facility] 07-23-2024 11:41-0400 Heart rate 85 /min Dr. Biju Lobo DO Work Phone: [facility] 07-23-2024 11:41-0400 Respiratory rate 17 /min Dr. Biju Lobo DO Work Phone: [facility] 07-23-2024 11:41-0400 SaO2% (BldA) [Mass fraction] 94 % Dr. Biju Lobo DO Work Phone: [facility] 07-23-2024 11:41-0400 Systolic blood pressure 130 mm[Hg] Dr. Biju Lobo DO Work Phone: [facility] 07-15-2024 08:22-0400 Body mass index (BMI) [Ratio] 29.9 kg/m2 Dr. Biju Lobo DO Work Phone: [facility] 07-15-2024 08:22-0400 Body temperature 97.8 [degF] Dr. Biju Lobo DO Work Phone: [facility] 07-15-2024 08:22-0400 Body weight 92.[address] Biju Lobo DO Work Phone: [facility] 07-15-2024 08:22-0400 Diastolic blood pressure 83 mm[Hg] Dr. Biju Lobo DO Work Phone: [facility] 07-15-2024 08:22-0400 Heart rate 78 /min Dr. Biju Lobo DO Work Phone: [facility] 07-15-2024 08:22-0400 Respiratory rate 20 /min Dr. Biju Lobo DO Work Phone: [facility] 07-15-2024 08:22-0400 SaO2% (BldA) [Mass fraction] 94 % Dr. Biju Lobo DO Work Phone: [facility] 07-15-2024 08:22-0400 Systolic blood pressure 126 mm[Hg] Dr. Biju Lobo DO Work Phone: [facility] 07-02-2024 12:51-0400 Body height 175.[address] Biju Lobo DO Work Phone: [facility] 07-02-2024 12:51-0400 Body weight 90.[address] Biju Lobo DO Work Phone: [facility] 07-02-2024 12:51-0400 Heart rate 85 /min Dr. Biju Lobo DO Work Phone: [facility] 07-02-2024 12:51-0400 SaO2% (BldA) [Mass fraction] 91 % Dr. Biju Lobo DO Work Phone: [facility] 06-24-2024 10:59-0400 Body height 175.3 cm Hemant Galvan MD Work Phone: [facility] 06-24-2024 10:59-0400 Body mass index (BMI) [Ratio] 30.42 kg/m2 Hemant Galvan MD Work Phone: [facility] 06-24-2024 10:59-0400 Body weight 93.44 kg Hemant Galvan MD Work Phone: [facility] 06-24-2024 10:59-0400 Diastolic blood pressure 69 mm[Hg] Hemant Galvan MD Work Phone: [facility] 06-24-2024 10:59-0400 Heart rate 80 /min Hemant Galvan MD Work Phone: [facility] 06-24-2024 10:59-0400 Respiratory rate 18 /min Hemant Galvan MD Work Phone: [facility] 06-24-2024 10:59-0400 SaO2% (BldA) [Mass fraction] 94 % Hemant Galvan MD Work Phone: [facility] 06-24-2024 10:59-0400 Systolic blood pressure 112 mm[Hg] Hemant Galvan MD Work Phone: [facility] 05-27-2024 08:22-0400 Body height 175.[address] Biju Lobo DO Work Phone: [facility] 05-27-2024 08:22-0400 Body mass index (BMI) [Ratio] 29 kg/m2 Dr. Biju Lobo DO Work Phone: [facility] 05-27-2024 08:22-0400 Body temperature 97.5 [degF] Dr. Biju Lobo DO Work Phone: [facility] 05-27-2024 08:22-0400 Body weight 89.[address] Biju Lobo DO Work Phone: [facility] 05-27-2024 08:22-0400 Diastolic blood pressure 82 mm[Hg] Dr. Biju Lobo DO Work Phone: [facility] 05-27-2024 08:22-0400 Heart rate 78 /min Dr. Biju Lobo DO Work Phone: [facility] 05-27-2024 08:22-0400 Respiratory rate 18 /min Dr. Biju Lobo DO Work Phone: [facility] 05-27-2024 08:22-0400 SaO2% (BldA) [Mass fraction] 98 % Dr. Bjiu Lobo DO Work Phone: [facility] 05-27-2024 08:22-0400 Systolic blood pressure 121 mm[Hg] Dr. Biju Lobo DO Work Phone: [facility] 05-26-2024 13:30-0400 Diastolic blood pressure 64 mm[Hg] Dr. Biju Lobo DO Work Phone: [facility] 05-26-2024 13:30-0400 Heart rate 86 /min Dr. Biju Lobo DO Work Phone: [facility] 05-26-2024 13:30-0400 Systolic blood pressure 89 mm[Hg] Dr. Biju Lobo DO Work Phone: [facility] 05-26-2024 13:02-0400 Body mass index (BMI) [Ratio] 29.3 kg/m2 Dr. Biju Lobo DO Work Phone: [facility] 05-26-2024 13:02-0400 Body temperature 98.2 [degF] Dr. Biju Lobo DO Work Phone: [facility] 05-26-2024 13:02-0400 Body weight 90.[address] Biju Lobo DO Work Phone: [facility] 05-26-2024 13:02-0400 Respiratory rate 16 /min Dr. Biju Lobo DO Work Phone: [facility] 05-26-2024 13:02-0400 SaO2% (BldA) [Mass fraction] 93 % Dr. Biju Lobo DO Work Phone: [facility] 04-15-2024 09:07-0500 Body mass index (BMI) [Ratio] 28.9 kg/m2 Dr. Biju Lobo DO Work Phone: [facility] 04-15-2024 09:07-0500 Body temperature 97.2 [degF] Dr. Biju Lobo DO Work Phone: [facility] 04-15-2024 09:07-0500 Body weight 88.[address] Biju Lobo DO Work Phone: [facility] 04-15-2024 09:07-0500 Diastolic blood pressure 84 mm[Hg] Dr. Biju Lobo DO Work Phone: [facility] 04-15-2024 09:07-0500 Heart rate 87 /min Dr. Biju Lobo DO Work Phone: [facility] 04-15-2024 09:07-0500 Respiratory rate 18 /min Dr. Biju Lobo DO Work Phone: [facility] 04-15-2024 09:07-0500 SaO2% (BldA) [Mass fraction] 96 % Dr. Biju Lobo DO Work Phone: [facility] 04-15-2024 09:07-0500 Systolic blood pressure 125 mm[Hg] Dr. Biju Lobo DO Work Phone: [facility] 04-01-2024 08:41-0500 Body mass index (BMI) [Ratio] 29.9 kg/m2 Dr. Biju Lobo DO Work Phone: [facility] 04-01-2024 08:41-0500 Body weight 92.[address] Biju Lobo DO Work Phone: [facility] 04-01-2024 08:41-0500 Diastolic blood pressure 62 mm[Hg] Dr. Biju Lobo DO Work Phone: [facility] 04-01-2024 08:41-0500 Heart rate 91 /min Dr. Biju Lobo DO Work Phone: [facility] 04-01-2024 08:41-0500 Respiratory rate 18 /min Dr. Biju Lobo DO Work Phone: [facility] 04-01-2024 08:41-0500 Systolic blood pressure 93 mm[Hg] Dr. Biju Lobo DO Work Phone: [facility] 03-25-2024 10:56-0500 Body height 175.3 cm Hemant Galvan MD Work Phone: [facility] 03-25-2024 10:56-0500 Body mass index (BMI) [Ratio] 28.65 kg/m2 Hemant Galvan MD Work Phone: [facility] 03-25-2024 10:56-0500 Body temperature 98.1 [degF] Hemant Galvan MD Work Phone: [facility] 03-25-2024 10:56-0500 Body weight 88 kg Hemant Galvan MD Work Phone: [facility] 03-25-2024 10:56-0500 Diastolic blood pressure 57 mm[Hg] Hemant Galvan MD Work Phone: [facility] 03-25-2024 10:56-0500 Heart rate 91 /min Hemant Galvan MD Work Phone: [facility] 03-25-2024 10:56-0500 Respiratory rate 16 /min Hemant Galvan MD Work Phone: [facility] 03-25-2024 10:56-0500 SaO2% (BldA) [Mass fraction] 94 % Hemant Galvan MD Work Phone: [facility] 03-25-2024 10:56-0500 Systolic blood pressure 91 mm[Hg] Hemant Galvan MD Work Phone: [facility] 03-16-2024 13:57-0500 Diastolic blood pressure 62 mm[Hg] Dr. Biju Lobo DO Work Phone: [facility] 03-16-2024 13:57-0500 Systolic blood pressure 86 mm[Hg] Dr. Biju Lobo DO Work Phone: [facility] 03-16-2024 11:35-0500 Body height 175.[address] Biju Lobo DO Work Phone: [facility] 03-16-2024 11:35-0500 Body mass index (BMI) [Ratio] 27.8 kg/m2 Dr. Biju Lobo DO Work Phone: [facility] 03-16-2024 11:35-0500 Body temperature 98.4 [degF] Dr. Biju Lobo DO Work Phone: [facility] 03-16-2024 11:35-0500 Body weight 85.[address] Biju Lobo DO Work Phone: [facility] 03-16-2024 11:35-0500 Heart rate 87 /min Dr. Biju Lobo DO Work Phone: [facility] 03-16-2024 11:35-0500 Respiratory rate 16 /min Dr. Biju Lobo DO Work Phone: [facility] 03-16-2024 11:35-0500 SaO2% (BldA) [Mass fraction] 98 % Dr. Biju Lobo DO Work Phone: [facility] 03-08-2024 17:48-0500 Body temperature 97.5 [degF] Dr. Biju Lobo DO Work Phone: [facility] 03-08-2024 17:48-0500 Diastolic blood pressure 95 mm[Hg] Dr. Biju Lobo DO Work Phone: [facility] 03-08-2024 17:48-0500 Heart rate 89 /min Dr. Biju Lobo DO Work Phone: [facility] 03-08-2024 17:48-0500 Respiratory rate 24 /min Dr. Biju Lobo DO Work Phone: [facility] 03-08-2024 17:48-0500 SaO2% (BldA) [Mass fraction] 93 % Dr. Biju Lobo DO Work Phone: [facility] 03-08-2024 17:48-0500 Systolic blood pressure 138 mm[Hg] Dr. Biju Lobo DO Work Phone: [facility] 03-08-2024 15:47-0500 Inhaled oxygen flow rate 3 L/min Dr. Biju Lobo DO Work Phone: [facility] 03-08-2024 15:26-0500 Body mass index (BMI) [Ratio] 28.2 kg/m2 Dr. Biju Lobo DO Work Phone: [facility] 03-08-2024 15:26-0500 Body weight 86.[address] Biju Lobo DO Work Phone: [facility] 12-27-2023 10:57-0500 Body height 175.3 cm Hemnat Galvan MD Work Phone: [facility] 12-27-2023 10:57-0500 Body mass index (BMI) [Ratio] 27.47 kg/m2 Hemant Galvan MD Work Phone: [facility] 12-27-2023 10:57-0500 Body temperature 98.29 [degF] Hemant Galvan MD Work Phone: [facility] 12-27-2023 10:57-0500 Body weight 84.37 kg Hemant Galvan MD Work Phone: [facility] 12-27-2023 10:57-0500 Diastolic blood pressure 75 mm[Hg] Hemant Galvan MD Work Phone: [facility] 12-27-2023 10:57-0500 Heart rate 74 /min Hemant Galvan MD Work Phone: [facility] 12-27-2023 10:57-0500 Respiratory rate 16 /min Hemant Galvan MD Work Phone: [facility] 12-27-2023 10:57-0500 SaO2% (BldA) [Mass fraction] 95 % Hemant Galvan MD Work Phone: [facility] 12-27-2023 10:57-0500 Systolic blood pressure 124 mm[Hg] Hemant Galvan MD Work Phone: [facility] 10-17-2023 09:35-0400 Body mass index (BMI) [Ratio] 28.35 kg/m2 Rj Trammell MD Work Phone: [facility] 10-17-2023 09:35-0400 Body weight 87.09 kg Rj Trammell MD Work Phone: [facility] 10-17-2023 09:35-0400 Diastolic blood pressure 85 mm[Hg] Rj Trammell MD Work Phone: [facility] 10-17-2023 09:35-0400 Heart rate 63 /min Rj Trammell MD Work Phone: [facility] 10-17-2023 09:35-0400 Systolic blood pressure 118 mm[Hg] Rj Trammell MD Work Phone: [facility] 10-02-2023 09:22-0400 Body height 175.3 cm Hemant Galvan MD Work Phone: [facility] 10-02-2023 09:22-0400 Body mass index (BMI) [Ratio] 29.68 kg/m2 Hemant Galvan MD Work Phone: [facility] 10-02-2023 09:22-0400 Body temperature 96.49 [degF] Hemant Galvan MD Work Phone: [facility] 10-02-2023 09:22-0400 Body weight 91.17 kg Hemant Galvan MD Work Phone: [facility] 10-02-2023 09:22-0400 Diastolic blood pressure 82 mm[Hg] Hemant Galvan MD Work Phone: [facility] 10-02-2023 09:22-0400 Heart rate 65 /min Hemant Galvan MD Work Phone: [facility] 10-02-2023 09:22-0400 Respiratory rate 16 /min Hemant Galvan MD Work Phone: [facility] 10-02-2023 09:22-0400 SaO2% (BldA) [Mass fraction] 95 % Hemant Galvan MD Work Phone: [facility] 10-02-2023 09:22-0400 Systolic blood pressure 111 mm[Hg] Hemant Galvan MD Work Phone: [facility] 09-07-2023 07:44-0400 Body temperature 98.1 [degF] Hemant Galvan MD Work Phone: [facility] 09-07-2023 07:44-0400 Diastolic blood pressure 71 mm[Hg] Hemant Galvan MD Work Phone: [facility] 09-07-2023 07:44-0400 Heart rate 72 /min Hemant Galvan MD Work Phone: [facility] 09-07-2023 07:44-0400 Respiratory rate 16 /min Hemant Galvan MD Work Phone: [facility] 09-07-2023 07:44-0400 SaO2% (BldA) [Mass fraction] 92 % Hemant Galvan MD Work Phone: [facility] 09-07-2023 07:44-0400 Systolic blood pressure 117 mm[Hg] Hemant Galvan MD Work Phone: [facility] 09-02-2023 13:36-0400 Body height 175.3 cm Hemant Galvan MD Work Phone: [facility] 09-02-2023 13:36-0400 Body mass index (BMI) [Ratio] 29.09 kg/m2 Hemant Galvan MD Work Phone: [facility] 09-02-2023 13:36-0400 Body weight 89.36 kg Hemant Galvan MD Work Phone: [facility] 07-10-2023 13:22-0400 Body height 175.3 cm Hemant Galvan MD Work Phone: [facility] Comment on above: verbal 07-10-2023 13:22-0400 Body mass index (BMI) [Ratio] 29.87 kg/m2 Hemant Galvan MD Work Phone: [facility] 07-10-2023 13:22-0400 Body temperature 98.29 [degF] Hemant Galvan MD Work Phone: [facility] 07-10-2023 13:22-0400 Body weight 91.76 kg Hemant Galvan MD Work Phone: [facility] 07-10-2023 13:22-0400 Diastolic blood pressure 85 mm[Hg] Hemant Galvan MD Work Phone: [facility] 07-10-2023 13:22-0400 Heart rate 65 /min Hemant Galvan MD Work Phone: [facility] 07-10-2023 13:22-0400 Respiratory rate 18 /min Hemant Galvan MD Work Phone: [facility] 07-10-2023 13:22-0400 SaO2% (BldA) [Mass fraction] 96 % Hemant Galvan MD Work Phone: [facility] 07-10-2023 13:22-0400 Systolic blood pressure 140 mm[Hg] Hemant Galvan MD Work Phone: [facility] 06-21-2023 08:15-0400 Body height 175.[address] Biju Lobo Work Phone: [facility] 06-21-2023 08:15-0400 Body mass index (BMI) [Ratio] 30.1 kg/m2 Dr. Biju Lobo Work Phone: [facility] 06-21-2023 08:15-0400 Body temperature 98 [degF] Dr. Biju Lobo Work Phone: [facility] 06-21-2023 08:15-0400 Body weight 92.[address] Biju Lobo Work Phone: [facility] 06-21-2023 08:15-0400 Diastolic blood pressure 67 mm[Hg] Dr. Biju Lobo Work Phone: [facility] 06-21-2023 08:15-0400 Heart rate 71 /min Dr. Biju Lobo Work Phone: [facility] 06-21-2023 08:15-0400 Respiratory rate 22 /min Dr. Biju Lobo Work Phone: [facility] 06-21-2023 08:15-0400 SaO2% (BldA) [Mass fraction] 93 % Dr. Biju Lobo Work Phone: [facility] 06-21-2023 08:15-0400 Systolic blood pressure 100 mm[Hg] Dr. Biju Lobo Work Phone: [facility] 06-18-2023 10:02-0400 Body mass index (BMI) [Ratio] 29.9 kg/m2 Dr. Biju Lobo Work Phone: [facility] 06-18-2023 10:02-0400 Body weight 92.[address] Biju Lobo Work Phone: [facility] 06-18-2023 10:02-0400 Diastolic blood pressure 71 mm[Hg] Dr. Biju Lobo Work Phone: [facility] 06-18-2023 10:02-0400 Heart rate 78 /min Dr. Biju Lobo Work Phone: [facility] 06-18-2023 10:02-0400 Respiratory rate 18 /min Dr. Biju Lobo Work Phone: [facility] 06-18-2023 10:02-0400 Systolic blood pressure 105 mm[Hg] Dr. Biju Lobo Work Phone: [facility] 05-29-2023 13:47-0400 Body height 175.3 cm Rj Trammell MD Work Phone: [facility] 05-29-2023 13:47-0400 Body mass index (BMI) [Ratio] 31.75 kg/m2 Rj Trammell MD Work Phone: [facility] 05-29-2023 13:47-0400 Body weight 97.52 kg Rj Trammell MD Work Phone: [facility] 05-29-2023 13:47-0400 Respiratory rate 16 /min Rj Trammell MD Work Phone: [facility] 05-16-2023 12:06-0400 Heart rate 96 /min Dr. Biju Lobo Work Phone: [facility] 05-16-2023 12:06-0400 SaO2% (BldA) [Mass fraction] 95 % Dr. Biju Lobo Work Phone: [facility] [facility] 05-16-2023 12:04-0400 Inhaled oxygen flow rate 2 L/min Dr. Biju Lobo Work Phone: [facility] 05-16-2023 07:36-0400 Body height 175.[address] Biju Lobo Work Phone: [facility] 05-16-2023 07:36-0400 Body mass index (BMI) [Ratio] 31.6 kg/m2 Dr. Biju Lobo Work Phone: [facility] 05-16-2023 07:36-0400 Body temperature 97.7 [degF] Dr. Biju Lobo Work Phone: [facility] 05-16-2023 07:36-0400 Body weight 97.[address] Biju Lobo Work Phone: [facility] 05-16-2023 07:36-0400 Diastolic blood pressure 76 mm[Hg] Dr. Biju Lobo Work Phone: [facility] 05-16-2023 07:36-0400 Respiratory rate 16 /min Dr. Biju Lobo Work Phone: [facility] 05-16-2023 07:36-0400 Systolic blood pressure 108 mm[Hg] Dr. Biju Lobo Work Phone: [facility] 05-03-2023 11:54-0400 Body temperature 98.2 [degF] Dr. Biju Lobo Work Phone: [facility] 05-03-2023 11:54-0400 Diastolic blood pressure 77 mm[Hg] Dr. Biju Lobo Work Phone: [facility] 05-03-2023 11:54-0400 Heart rate 71 /min Dr. iBju Lobo Work Phone: [facility] 05-03-2023 11:54-0400 Respiratory rate 15 /min Dr. Biju Lobo Work Phone: [facility] 05-03-2023 11:54-0400 SaO2% (BldA) [Mass fraction] 100 % Dr. Biju Lobo Work Phone: [facility] 05-03-2023 11:54-0400 Systolic blood pressure 175 mm[Hg] Dr. Biju Lobo Work Phone: [facility] 05-03-2023 09:45-0400 Body height 175.[address] Biju Lobo Work Phone: [facility] 05-03-2023 09:45-0400 Body mass index (BMI) [Ratio] 31.8 kg/m2 Dr. Biju Lobo Work Phone: [facility] 05-03-2023 09:45-0400 Body weight 98.[address] Biju Lobo Work Phone: [facility] 03-19-2023 11:45-0500 Body temperature 97.4 [degF] Dr. Biju Lobo Work Phone: [facility] 03-19-2023 11:45-0500 Diastolic blood pressure 68 mm[Hg] Dr. Biju Lobo Work Phone: [facility] 03-19-2023 11:45-0500 Heart rate 67 /min Dr. Biju Lobo Work Phone: [facility] 03-19-2023 11:45-0500 Respiratory rate 18 /min Dr. Biju Lobo Work Phone: [facility] 03-19-2023 11:45-0500 SaO2% (BldA) [Mass fraction] 94 % Dr. Biju Lobo Work Phone: [facility] 03-19-2023 11:45-0500 Systolic blood pressure 111 mm[Hg] Dr. Biju Lobo Work Phone: [facility] 03-19-2023 06:00-0500 Body mass index (BMI) [Ratio] 32.1 kg/m2 Dr. Biju Lobo Work Phone: [facility] 03-19-2023 06:00-0500 Body weight 98.[address] Biju Lobo Work Phone: [facility] 03-18-2023 14:46-0500 Body height 175.[address] Biju Lobo Work Phone: [facility] 03-18-2023 14:05-0500 Inhaled oxygen flow rate 2 L/min Dr. Biju Lobo Work Phone: [facility] 03-16-2023 12:47-0500 Diastolic blood pressure 80 mm[Hg] Dr. Biju Lobo Work Phone: [facility] 03-16-2023 12:47-0500 Heart rate 80 /min Dr. Biju Lobo Work Phone: [facility] 03-16-2023 12:47-0500 Inhaled oxygen flow rate 2 L/min Dr. Biju Lobo Work Phone: [facility] 03-16-2023 12:47-0500 Respiratory rate 16 /min Dr. Biju Lobo Work Phone: [facility] 03-16-2023 12:47-0500 SaO2% (BldA) [Mass fraction] 98 % Dr. Biju Lobo Work Phone: [facility] 03-16-2023 12:47-0500 Systolic blood pressure 109 mm[Hg] Dr. Biju Lobo Work Phone: [facility] 03-16-2023 09:53-0500 Body height 175.[address] Biju Lobo Work Phone: [facility] 03-16-2023 09:53-0500 Body mass index (BMI) [Ratio] 31.9 kg/m2 Dr. Biju Lobo Work Phone: [facility] 03-16-2023 09:53-0500 Body temperature 97.2 [degF] Dr. Biju Lobo Work Phone: [facility] 03-16-2023 09:53-0500 Body weight 98.[address] Biju Lobo Work Phone: [facility] 03-12-2023 07:42-0500 Body mass index (BMI) [Ratio] 32.3 kg/m2 Dr. Biju Lobo Work Phone: [facility] 03-12-2023 07:42-0500 Body temperature 98.6 [degF] Dr. Biju Lobo Work Phone: [facility] 03-12-2023 07:42-0500 Body weight 99.[address] Biju Lobo Work Phone: [facility] 03-12-2023 07:42-0500 Diastolic blood pressure 91 mm[Hg] Dr. Biju Lobo Work Phone: [facility] 03-12-2023 07:42-0500 Heart rate 66 /min Dr. Biju Lobo Work Phone: [facility] 03-12-2023 07:42-0500 SaO2% (BldA) [Mass fraction] 94 % Dr. Biju Lobo Work Phone: [facility] 03-12-2023 07:42-0500 Systolic blood pressure 132 mm[Hg] Dr. Biju Lobo Work Phone: [facility] 01-31-2023 11:26-0500 Body height 175.[address] Biju Lobo Work Phone: [facility] 01-31-2023 11:26-0500 Body mass index (BMI) [Ratio] 32.8 kg/m2 Dr. Biju Lobo Work Phone: [facility] 01-31-2023 11:26-0500 Body temperature 97.8 [degF] Dr. Biju Loob Work Phone: [facility] 01-31-2023 11:26-0500 Body weight 100.[address] Biju Lobo Work Phone: [facility] 01-31-2023 11:26-0500 Diastolic blood pressure 60 mm[Hg] Dr. Biju Lobo Work Phone: [facility] 01-31-2023 11:26-0500 Heart rate 68 /min Dr. Biju Lobo Work Phone: [facility] 01-31-2023 11:26-0500 Respiratory rate 17 /min Dr. Biju Lobo Work Phone: [facility] 01-31-2023 11:26-0500 SaO2% (BldA) [Mass fraction] 96 % Dr. Biju Lobo Work Phone: [facility] 01-31-2023 11:26-0500 Systolic blood pressure 90 mm[Hg] Dr. Biju Lobo Work Phone: [facility] 12-17-2022 06:44-0400 Body height 175.[address] Biju Lobo Work Phone: [facility] 12-17-2022 06:44-0400 Body mass index (BMI) [Ratio] 33.2 kg/m2 Dr. Biju Lobo Work Phone: [facility] 12-17-2022 06:44-0400 Body temperature 97.9 [degF] Dr. Biju Lobo Work Phone: [facility] 12-17-2022 06:44-0400 Body weight 102.[address] Biju Lobo Work Phone: [facility] 12-17-2022 06:44-0400 Diastolic blood pressure 71 mm[Hg] Dr. Biju Lobo Work Phone: [facility] 12-17-2022 06:44-0400 Heart rate 65 /min Dr. Biju Lobo Work Phone: [facility] 12-17-2022 06:44-0400 Respiratory rate 17 /min Dr. Biju Lobo Work Phone: [facility] 12-17-2022 06:44-0400 SaO2% (BldA) [Mass fraction] 94 % Dr. Biju Lobo Work Phone: [facility] 12-17-2022 06:44-0400 Systolic blood pressure 100 mm[Hg] Dr. Biju Lobo Work Phone: [facility] 11-16-2022 08:27-0400 Body mass index (BMI) [Ratio] 32 kg/m2 Dr. Biju Lobo Work Phone: [facility] 11-16-2022 08:27-0400 Body temperature 96.7 [degF] Dr. Biju Lobo Work Phone: [facility] 11-16-2022 08:27-0400 Body weight 98.[address] Biju Lobo Work Phone: [facility] 11-16-2022 08:27-0400 Diastolic blood pressure 69 mm[Hg] Dr. Biju Lobo Work Phone: [facility] 11-16-2022 08:27-0400 Heart rate 63 /min Dr. Biju Lobo Work Phone: [facility] 11-16-2022 08:27-0400 Respiratory rate 20 /min Dr. Biju Lobo Work Phone: [facility] 11-16-2022 08:27-0400 SaO2% (BldA) [Mass fraction] 96 % Dr. Biju Lobo Work Phone: [facility] 11-16-2022 08:27-0400 Systolic blood pressure 110 mm[Hg] Dr. Biju Lobo Work Phone: [facility] 09-25-2022 16:10-0400 Body height 175.26 cm Biju Moore [employer] Work Phone: CN-Tdobispizd-Vpky [address] [place] Work Phone: 09-25-2022 16:10-0400 Body mass index (BMI) [Ratio] 32.49 kg/m2 Biju Moore [employer] Work Phone: KZ-Wcpaxfnmyn-Utxh [facility] [address] [place] Work Phone: 09-25-2022 16:10-0400 Body surface area Derived from formula 2.15 m2 Biju Moore [employer] Work Phone: KT-Ensurftoja-Jehr [facility] [address] [place] Work Phone: 09-25-2022 16:10-0400 Body weight 99.79 kg Biju Moore [employer] Work Phone: TC-Fldgbdspty-Vupy [address] [place] Work Phone: 09-25-2022 16:10-0400 Diastolic blood pressure 73 mm[Hg] Biju Moore [employer] Work Phone: NN-Xkscrsqmqn-Iyje [address] [place] Work Phone: 09-25-2022 16:10-0400 Heart rate 67 /min Biju Ramirezutzman Work Phone: TY-Ghvtnlhpjv-Dewy [address] [place] Work Phone: 09-25-2022 16:10-0400 SaO2% (BldA) [Mass fraction] 98 % Biju Lobo Work Phone: OD-Yqxqoopxcy-Urtr [facility] [address] [place] Work Phone: 09-25-2022 16:10-0400 Systolic blood pressure 115 mm[Hg] Biju Lobo Work Phone: SU-Qpulpqpnil-Uxqf [facility] [address] [place] Work Phone: 09-24-2022 15:32-0400 Body height 175.[address] Biju Lobo Work Phone: [facility] 09-24-2022 15:32-0400 Body mass index (BMI) [Ratio] 32.8 kg/m2 Dr. Biju Lobo Work Phone: [facility] 09-24-2022 15:32-0400 Body temperature 98.6 [degF] Dr. Biju Lobo Work Phone: [facility] 09-24-2022 15:32-0400 Body weight 100.[address] Biju Lobo Work Phone: [facility] 09-24-2022 15:32-0400 Diastolic blood pressure 60 mm[Hg] Dr. Biju Lobo Work Phone: [facility] 09-24-2022 15:32-0400 Heart rate 68 /min Dr. Biju Lobo Work Phone: [facility] 09-24-2022 15:32-0400 Respiratory rate 16 /min Dr. Biju Lobo Work Phone: [facility] 09-24-2022 15:32-0400 SaO2% (BldA) [Mass fraction] 92 % Dr. Biju Lobo Work Phone: [facility] 09-24-2022 15:32-0400 Systolic blood pressure 110 mm[Hg] Dr. Biju Lobo Work Phone: [facility] 09-11-2022 08:23-0400 Body mass index (BMI) [Ratio] 32.1 kg/m2 Dr. Biju Lobo Work Phone: [facility] 09-11-2022 08:23-0400 Body temperature 97.5 [degF] Dr. Biju Lobo Work Phone: [facility] 09-11-2022 08:23-0400 Body weight 98.[address] Biju Lobo Work Phone: [facility] 09-11-2022 08:23-0400 Diastolic blood pressure 74 mm[Hg] Dr. Biju Lobo Work Phone: [facility] 09-11-2022 08:23-0400 Heart rate 61 /min Dr. Biju Lobo Work Phone: [facility] 09-11-2022 08:23-0400 Respiratory rate 18 /min Dr. Biju Lobo Work Phone: [facility] 09-11-2022 08:23-0400 SaO2% (BldA) [Mass fraction] 96 % Dr. Biju Lobo Work Phone: [facility] 09-11-2022 08:23-0400 Systolic blood pressure 112 mm[Hg] Dr. Biju Lobo Work Phone: [facility] 08-30-2022 13:18-0400 Body height 175.[address] Biju Lobo Work Phone: [facility] 08-30-2022 13:18-0400 Body weight 97.[address] Biju Lobo Work Phone: [facility] 08-30-2022 13:18-0400 Heart rate 67 /min Dr. Biju Lobo Work Phone: [facility] 08-30-2022 13:18-0400 SaO2% (BldA) [Mass fraction] 97 % Dr. Biju Lobo Work Phone: [facility] 07-03-2022 05:57-0400 Body height 175.[address] Biju Lobo Work Phone: [facility] 07-03-2022 05:57-0400 Body mass index (BMI) [Ratio] 33.5 kg/m2 Dr. Biju Lobo Work Phone: [facility] 07-03-2022 05:57-0400 Body temperature 97.6 [degF] Dr. iBju Lobo Work Phone: [facility] 07-03-2022 05:57-0400 Body weight 102.[address] Biju Lobo Work Phone: [facility] 07-03-2022 05:57-0400 Diastolic blood pressure 78 mm[Hg] Dr. Biju Lobo Work Phone: [facility] 07-03-2022 05:57-0400 Heart rate 59 /min Dr. Biju Lobo Work Phone: [facility] 07-03-2022 05:57-0400 Respiratory rate 16 /min Dr. Biju Lobo Work Phone: [facility] 07-03-2022 05:57-0400 SaO2% (BldA) [Mass fraction] 97 % Dr. Biju Lobo Work Phone: [facility] 07-03-2022 05:57-0400 Systolic blood pressure 116 mm[Hg] Dr. Biju Lobo Work Phone: [facility] 06-04-2022 08:59-0400 Body height 175.[address] Biju Lobo Work Phone: [facility] 06-04-2022 08:59-0400 Body mass index (BMI) [Ratio] 33.7 kg/m2 Dr. Biju Lobo Work Phone: [facility] 06-04-2022 08:59-0400 Body temperature 98.2 [degF] Dr. Biju Lobo Work Phone: [facility] 06-04-2022 08:59-0400 Body weight 103.[address] Biju Lobo Work Phone: [facility] 06-04-2022 08:59-0400 Diastolic blood pressure 70 mm[Hg] Dr. Biju Lobo Work Phone: [facility] 06-04-2022 08:59-0400 Heart rate 62 /min Dr. Biju Lobo Work Phone: [facility] 06-04-2022 08:59-0400 Respiratory rate 17 /min Dr. Biju Lobo Work Phone: [facility] 06-04-2022 08:59-0400 SaO2% (BldA) [Mass fraction] 95 % Dr. Biju Lobo Work Phone: [facility] 06-04-2022 08:59-0400 Systolic blood pressure 100 mm[Hg] Dr. Biju Lobo Work Phone: [facility] 03-28-2022 13:11-0500 Body mass index (BMI) [Ratio] 34.74 kg/m2 Biju Moore [employer] Work Phone: DC-Jxehcqw-Ohurcbo Work Phone: 03-28-2022 13:11-0500 Body surface area Derived from formula 2.21 m2 Biju Moore [employer] Work Phone: TC-Lspoeiv-Hylsrdv Work Phone: 03-28-2022 13:11-0500 Body weight 106.71 kg Biju Moore [employer] Work Phone: RE-Uisablq-Xxmpmkg Work Phone: 03-28-2022 13:11-0500 Diastolic blood pressure 75 mm[Hg] Biju Moore [employer] Work Phone: YH-Lvifndk-Rmgfbfc Work Phone: 03-28-2022 13:11-0500 Heart rate 71 /min Biju Reesman Work Phone: ST-Hmxpyvc-Qytiisn Work Phone: 03-28-2022 13:11-0500 Systolic blood pressure 123 mm[Hg] Biju Moore [employer] Work Phone: SK-Qlbnfey-Zzhhrpl Work Phone: 03-27-2022 15:45-0500 Body height 175.26 cm Biju Moore [employer] Work Phone: GF-Cecktmheww-Wrzr [address] [place] Work Phone: 03-27-2022 15:45-0500 Body mass index (BMI) [Ratio] 33.97 kg/m2 Biju Moore [employer] Work Phone: CV-Usiuvupoph-Dfzf [address] [place] Work Phone: 03-27-2022 15:45-0500 Body surface area Derived from formula 2.19 m2 Biju Moore [employer] Work Phone: OO-Gpzuuxvazr-Sjse na [address] [place] Work Phone: 03-27-2022 15:45-0500 Body weight 104.33 kg Biju Moore [employer] Work Phone: FD-Sdcqwzqdvg-Jmaj [address] [place] Work Phone: 03-27-2022 15:45-0500 Diastolic blood pressure 67 mm[Hg] Biju Nortis Work Phone: CT-Edgroyrgkj-Tfca na [address] [place] Work Phone: 03-27-2022 15:45-0500 Heart rate 64 /min Biju Nortis Work Phone: MF-Salzgfsvmn-Neld [address] [place] Work Phone: 03-27-2022 15:45-0500 SaO2% (BldA) [Mass fraction] 96 % Biju Nortis Work Phone: GI-Vsisankxws-Iuuo [address] [place] Work Phone: 03-27-2022 15:45-0500 Systolic blood pressure 103 mm[Hg] Biju A [employer] Work Phone: WT-Jcjsbavnfs-Mrzs na [address] [place] Work Phone: 02-07-2022 13:45-0500 Body height 175.26 cm Biju Ramirezutzman Work Phone: [facility] Work Phone: 02-07-2022 13:45-0500 Body mass index (BMI) [Ratio] 33.57 kg/m2 Biju Moore [employer] Work Phone: [facility] Work Phone: 02-07-2022 13:45-0500 Body surface area Derived from formula 2.18 m2 Biju Moore [employer] Work Phone: [facility] Work Phone: 02-07-2022 13:45-0500 Body temperature 97.9 [degF] Biju Moore [employer] Work Phone: [facility] Work Phone: 02-07-2022 13:45-0500 Body weight 103.11 kg Biju Moore [employer] Work Phone: [facility] Work Phone: 02-07-2022 13:45-0500 Diastolic blood pressure 73 mm[Hg] Biju Moore [employer] Work Phone: [facility] Work Phone: 02-07-2022 13:45-0500 Heart rate 70 /min Biju Moore [employer] Work Phone: [facility] Work Phone: 02-07-2022 13:45-0500 SaO2% (BldA) [Mass fraction] 96 % Biju Moore [employer] Work Phone: [facility] Work Phone: 02-07-2022 13:45-0500 Systolic blood pressure 111 mm[Hg] Biju Reesman Work Phone: [facility] Work Phone: 02-07-2022 13:45-0500 0 1 Biju Ramirezutzman Work Phone: [facility] Work Phone: Comment on above: [employer] 01-24-2022 11:20-0500 Respiratory rate 22 /min [facility] 01-24-2022 10:56-0500 Diastolic blood pressure 62 mm[Hg] [facility] 01-24-2022 10:56-0500 Heart rate 74 /min [facility] 01-24-2022 10:56-0500 SaO2% (BldA) [Mass fraction] 96 % [facility] 01-24-2022 10:56-0500 Systolic blood pressure 89 mm[Hg] [facility] 01-24-2022 09:01-0500 Body temperature 98.9 [degF] [facility] 01-24-2022 08:58-0500 Body height 175.26 cm [facility] 01-24-2022 08:58-0500 Body mass index (BMI) [Ratio] 33.1 kg/m2 [facility] 01-24-2022 08:58-0500 Body weight 101.74 kg [facility] 01-08-2022 13:34-0500 Body mass index (BMI) [Ratio] 32.78 kg/m2 Biju Ramirezutzman Work Phone: [facility] Work Phone: 01-08-2022 13:34-0500 Body surface area Derived from formula 2.16 m2 Biju Ramirezutzman Work Phone: [facility] Work Phone: 01-08-2022 13:34-0500 Body temperature 98.1 [degF] Biju Moore [employer] Work Phone: [facility] Work Phone: 01-08-2022 13:34-0500 Body weight 100.7 kg Biju Moore [employer] Work Phone: [facility] Work Phone: 01-08-2022 13:34-0500 Diastolic blood pressure 68 mm[Hg] Biju Moore [employer] Work Phone: [facility] Work Phone: 01-08-2022 13:34-0500 Heart rate 99 /min Biju Moore [employer] Work Phone: [facility] Work Phone: 01-08-2022 13:34-0500 SaO2% (BldA) [Mass fraction] 96 % Biju Moore [employer] Work Phone: [facility] Work Phone: 01-08-2022 13:34-0500 Systolic blood pressure 103 mm[Hg] Biju Moore [employer] Work Phone: [facility] Work Phone: 01-08-2022 13:34-0500 0 1 Biju Moore [employer] Work Phone: [facility] Work Phone: Comment on above: [facility] 11-27-2021 13:27-0400 Body mass index (BMI) [Ratio] 32.49 kg/m2 Biju Moore [employer] Work Phone: [facility] Work Phone: 11-27-2021 13:27-0400 Body surface area Derived from formula 2.15 m2 Biju Moore [employer] Work Phone: [facility] Work Phone: 11-27-2021 13:27-0400 Body temperature 207.86 [degF] Biju Moore [employer] Work Phone: [facility] Work Phone: 11-27-2021 13:27-0400 Body weight 99.79 kg Biju Moore [employer] Work Phone: [facility] Work Phone: 11-27-2021 13:27-0400 Diastolic blood pressure 69 mm[Hg] Biju Moore [employer] Work Phone: [facility] Work Phone: 11-27-2021 13:27-0400 Heart rate 69 /min Biju Moore [employer] Work Phone: [facility] Work Phone: 11-27-2021 13:27-0400 SaO2% (BldA) [Mass fraction] 96 % iBju Moore [employer] Work Phone: [facility] Work Phone: 11-27-2021 13:27-0400 Systolic blood pressure 106 mm[Hg] Biju Moore [employer] Work Phone: [facility] Work Phone: 11-27-2021 13:27-0400 0 1 Biju Moore [employer] Work Phone: [facility] Work Phone: Comment on above: [facility] 11-14-2021 15:06-0400 Body height 175.26 cm Biju Moore [employer] Work Phone: UG-Qnfawtgtbt-Vixw na [address] [place] Work Phone: 11-14-2021 15:06-0400 Body mass index (BMI) [Ratio] 32.93 kg/m2 Biju Moore [employer] Work Phone: QV-Clmxorqkhc-Dxan na [address] [place] Work Phone: 11-14-2021 15:06-0400 Body surface area Derived from formula 2.16 m2 Biju Moore [employer] Work Phone: FW-Ilfcyaghxs-Cneg na [address] [place] Work Phone: 11-14-2021 15:06-0400 Body weight 101.15 kg Biju Moore [employer] Work Phone: GC-Xehmhvlgrr-Nddz na [address] [place] Work Phone: 11-14-2021 15:06-0400 Diastolic blood pressure 63 mm[Hg] Biju Moore [employer] Work Phone: JJ-Oilsmckoaf-Akvu na [address] [place] Work Phone: 11-14-2021 15:06-0400 Heart rate 87 /min Biju Moore [employer] Work Phone: WB-Zafyqfpljw-Mlmn na [address] [place] Work Phone: 11-14-2021 15:06-0400 SaO2% (BldA) [Mass fraction] 97 % Biju Moore [employer] Work Phone: YF-Hzrvmhbbfy-Bfpv na [address] [place] Work Phone: 11-14-2021 15:06-0400 Systolic blood pressure 100 mm[Hg] Biju Moore [employer] Work Phone: KW-Xrxrwieoum-Lqir na [address] [place] Work Phone: 10-11-2021 13:26-0400 Body height 175.26 cm Biju Nortis Work Phone: VU-Lxygihwcow-Anqp na [address] [place] Work Phone: 10-11-2021 13:26-0400 Body mass index (BMI) [Ratio] 32.78 kg/m2 Biju Moore [employer] Work Phone: SA-Fgskffxovm-Lgkj na [address] [place] Work Phone: 10-11-2021 13:26-0400 Body surface area Derived from formula 2.16 m2 Biju oMore [employer] Work Phone: AU-Mrmnbwaezw-Foty na [address] [place] Work Phone: 10-11-2021 13:26-0400 Body weight 100.7 kg Biju Moore [employer] Work Phone: SD-Wcvlncfxyk-Nbvi na [address] [place] Work Phone: 10-11-2021 13:26-0400 Diastolic blood pressure 78 mm[Hg] Biju Moore [employer] Work Phone: AW-Zqxwsfrcwi-Xprm na [address] [place] Work Phone: 10-11-2021 13:26-0400 Heart rate 78 /min Biju Moore [employer] Work Phone: ZZ-Qfkfvypbzn-Bwvh na [address] [place] Work Phone: 10-11-2021 13:26-0400 SaO2% (BldA) [Mass fraction] 95 % Biju Moore [employer] Work Phone: BI-Pswujwgidb-Zwxb na [address] [place] Work Phone: 10-11-2021 13:26-0400 Systolic blood pressure 121 mm[Hg] Biju Moore [employer] Work Phone: RQ-Zklqxsfngo-Zmij na [address] [place] Work Phone: 10-11-2021 13:26-0400 0 1 Biju Moore [employer] Work Phone: XP-Rxycdzndlc-Mbqn na [address] [place] Work Phone: Comment on above: [facility] 09-11-2021 14:39-0400 Body height 172.72 cm Biju Moore [employer] Work Phone: GZ-Ljouiwkjcv-Ucmh na [address] [place] Work Phone: 09-11-2021 14:39-0400 Body mass index (BMI) [Ratio] 33.15 kg/m2 Biju Moore [employer] Work Phone: UZ-Ztjvkmxpfs-Riwo na [address] [place] Work Phone: 09-11-2021 14:39-0400 Body surface area Derived from formula 2.12 m2 Biju Moore [employer] Work Phone: EY-Ebnkrglkfv-Mvsy na [address] [place] Work Phone: 09-11-2021 14:39-0400 Body weight 98.88 kg Biju Moore [employer] Work Phone: FH-Fwtxgixnfm-Tfgj na [address] [place] Work Phone: 09-11-2021 14:39-0400 Diastolic blood pressure 85 mm[Hg] Biju Moore [employer] Work Phone: VW-Marvatgkes-Pwfw na [address] [place] Work Phone: 09-11-2021 14:39-0400 Heart rate 73 /min Biju Moore [employer] Work Phone: ID-Hktrwaqexk-Hfmd na [address] [place] Work Phone: 09-11-2021 14:39-0400 SaO2% (BldA) [Mass fraction] 96 % Biju Nortis Work Phone: SY-Sfokrazqui-Xwfb na 140 [place] Work Phone: 09-11-2021 14:39-0400 Systolic blood pressure 122 mm[Hg] Biju Moore [employer] Work Phone: TX-Aohywklovj-Htdf na 140 [place] Work Phone: 06-23-2021 14:31-0400 Body height 172.72 cm Biju Moore [employer] Work Phone: [facility] [facility] Work Phone: 06-23-2021 14:31-0400 Body mass index (BMI) [Ratio] 32.69 kg/m2 Biju Moore [employer] Work Phone: [facility] [facility] Work Phone: 06-23-2021 14:31-0400 Body surface area Derived from formula 2.11 m2 Biju Moore [employer] Work Phone: [facility] [facility] Work Phone: 06-23-2021 14:31-0400 Body weight 97.52 kg Biju Moore [employer] Work Phone: [facility] [facility] Work Phone: 06-23-2021 14:31-0400 Diastolic blood pressure 84 mm[Hg] Biju Moore [employer] Work Phone: [facility] [facility] Work Phone: 06-23-2021 14:31-0400 Heart rate 72 /min Biju Moore [employer] Work Phone: [facility] [facility] Work Phone: 06-23-2021 14:31-0400 SaO2% (BldA) [Mass fraction] 96 % Biju Moore [employer] Work Phone: [facility] [facility] Work Phone: 06-23-2021 14:31-0400 Systolic blood pressure 142 mm[Hg] Biju Moore [employer] Work Phone: [facility] [facility] Work Phone: 06-21-2021 13:27-0400 Body mass index (BMI) [Ratio] 32.23 kg/m2 Biju Moore [employer] Work Phone: [facility] [facility] Work Phone: 06-21-2021 13:27-0400 Body surface area Derived from formula 2.1 m2 Biju Moore [employer] Work Phone: [facility] [facility] [...] temperature 97.88 [degF] Biju Lobo Other Phone: [facility] 06-08-2021 17:35-0400 Diastolic blood pressure 71 mm[Hg] Biju Lobo Other Phone: [facility] 06-08-2021 17:35-0400 Heart rate 81 /min Biju Lobo Other Phone: [facility] 06-08-2021 17:35-0400 Respiratory rate 18 /min Biju Lobo Other Phone: [facility] 06-08-2021 17:35-0400 SaO2% (BldA) [Mass fraction] 96 % Biju Lobo Other Phone: [facility] 06-08-2021 17:35-0400 Systolic blood pressure 102 mm[Hg] Biju Lobo Other Phone: [facility] 06-08-2021 10:25-0400 Body weight 96.8 kg Biju Lobo Other Phone: [facility] 05-02-2021 09:52-0400 Body height 172.72 cm Biju Lobo Work Phone: [facility] [place] Work Phone: 05-02-2021 09:52-0400 Body mass index (BMI) [Ratio] 32.99 kg/m2 Biju Moore [employer] Work Phone: [facility] [place] Work Phone: 05-02-2021 09:52-0400 Body surface area Derived from formula 2.12 m2 Biju Moore Yamil Work Phone: [facility] [place] Work Phone: 05-02-2021 09:52-0400 Body temperature 207.5 [degF] Biju Moore Yamil Work Phone: [facility] [place] Work Phone: 05-02-2021 09:52-0400 Body weight 98.43 kg Biju Moore [employer] Work Phone: [facility] [place] Work Phone: 05-02-2021 09:52-0400 0 1 Biju Ramirezutzman Work Phone: [facility] [place] Work Phone: Comment on above: [employer] 04-03-2021 14:19-0500 Body height 177.8 cm Biju Moore [employer] Work Phone: KP-Cotgptwjgu-Lyod n 204 [place] Work Phone: 04-03-2021 14:19-0500 Body mass index (BMI) [Ratio] 31.68 kg/m2 Biju Moore [employer] Work Phone: SV-Wytkcbiydi-Bmcl n 204 DO Work Phone: 04-03-2021 14:19-0500 Body surface area Derived from formula 2.18 m2 Biju Moore [employer] Work Phone: AQ-Ebohhjsiff-Pjby n 204 DO Work Phone: 04-03-2021 14:19-0500 Body temperature 208.94 [degF] Biju Moore [employer] Work Phone: DG-Egfwnbosov-Lwrs n 204 DO Work Phone: 04-03-2021 14:19-0500 Body weight 100.15 kg Biju Moore [employer] Work Phone: BM-Scfpmcdiaj-Roaz n 204 DO Work Phone: 04-03-2021 14:19-0500 Diastolic blood pressure 72 mm[Hg] Biju Moore [employer] Work Phone: QP-Qbusbtizvl-Yxbz n 204 DO Work Phone: 04-03-2021 14:19-0500 Heart rate 81 /min Biju Moore [employer] Work Phone: UM-Uppaysrmqc-Pvva n 204 DO Work Phone: 04-03-2021 14:19-0500 SaO2% (BldA) [Mass fraction] 96 % Biju Moore [employer] Work Phone: JN-Vfuqjlsxbp-Omym n 204 [place] Work Phone: 04-03-2021 14:19-0500 Systolic blood pressure 107 mm[Hg] Biju Moore [employer] Work Phone: VQ-Ocsugzhkpg-Cpfp n 204 DO Work Phone: 03-29-2021 14:56-0500 Body height 177.8 cm Biju Moore [employer] Work Phone: WA-Mrqjwiibzy-Hfim n 204 DO Work Phone: 03-29-2021 14:56-0500 Body mass index (BMI) [Ratio] 31.21 kg/m2 Biju Moore [employer] Work Phone: UB-Apsgflikyt-Rvnd n 204 DO Work Phone: 03-29-2021 14:56-0500 Body surface area Derived from formula 2.16 m2 Biju Moore [employer] Work Phone: ST-Hjjjwinigc-Kjrf n 204 DO Work Phone: 03-29-2021 14:56-0500 Body weight 98.66 kg Biju Moore [employer] Work Phone: TB-Zutccetqgm-Veqy n 204 DO Work Phone: 03-22-2021 13:37-0500 Body mass index (BMI) [Ratio] 30.85 kg/m2 Biju Moore [employer] Work Phone: [facility] [facility] Work Phone: 03-22-2021 13:37-0500 Body surface area Derived from formula 2.15 m2 Biju Moore [employer] Work Phone: [facility] [facility] Work Phone: 03-22-2021 13:37-0500 Body temperature 207.86 [degF] Biju Moore [employer] Work Phone: [facility] [facility] Work Phone: 03-22-2021 13:37-0500 Body weight 97.52 kg Biju Ramirezutzman Work Phone: [facility] [facility] Work Phone: 03-22-2021 13:37-0500 Diastolic blood pressure 76 mm[Hg] Biju Moore [employer] Work Phone: [facility] [facility] Work Phone: 03-22-2021 13:37-0500 Heart rate 78 /min Biju Ramirezutzman Work Phone: [facility] [facility] Work Phone: 03-22-2021 13:37-0500 SaO2% (BldA) [Mass fraction] 98 % Biju Moore [employer] Work Phone: [facility] [facility] Work Phone: 03-22-2021 13:37-0500 Systolic blood pressure 119 mm[Hg] Biju Ramirezutzman Work Phone: [facility] [facility] Work Phone: 03-22-2021 13:37-0500 0 1 Biju Ramirezutzman Work Phone: [facility] [facility] Work Phone: Comment on above: [employer] 03-07-2021 10:58-0500 Body height 177.8 cm Biju Lobo Work Phone: [facility] Work Phone: 03-07-2021 10:58-0500 Body mass index (BMI) [Ratio] 30.3 kg/m2 Biju Ramirezutzman Work Phone: [facility] Work Phone: 03-07-2021 10:58-0500 Body surface area Derived from formula 2.14 m2 Biju A [employer] Work Phone: [facility] Work Phone: 03-07-2021 10:58-0500 Body temperature 98.24 [degF] Biju A [employer] Work Phone: [facility] Work Phone: 03-07-2021 10:58-0500 Body weight 95.8 kg Biju A [employer] Work Phone: [facility] Work Phone: 03-07-2021 10:58-0500 Diastolic blood pressure 89 mm[Hg] Biju A [employer] Work Phone: [facility] Work Phone: 03-07-2021 10:58-0500 Heart rate 91 /min Biju A [employer] Work Phone: [facility] Work Phone: 03-07-2021 10:58-0500 Respiratory rate 16 /min Biju A [employer] Work Phone: [facility] Work Phone: 03-07-2021 10:58-0500 SaO2% (BldA) [Mass fraction] 96 % Biju A [employer] Work Phone: [facility] Work Phone: 03-07-2021 10:58-0500 Systolic blood pressure 126 mm[Hg] Biju A [employer] Work Phone: [facility] Work Phone: 03-07-2021 10:58-0500 0 1 Biju A [employer] Work Phone: [facility] Work Phone: Comment on above: [employer] 03-01-2021 15:10-0500 Body height 177.8 cm Biju A [employer] Work Phone: ML-Gzbzijd-Opacckz Work Phone: 03-01-2021 15:10-0500 Body mass index (BMI) [Ratio] 30.31 kg/m2 Biju Moore [employer] Work Phone: FA-Ixyunha-Fxgrhnb Work Phone: 03-01-2021 15:10-0500 Body surface area Derived from formula 2.14 m2 Biju Moore [employer] Work Phone: NT-Wcgoamu-Ykljhyf Work Phone: 03-01-2021 15:10-0500 Body weight 95.82 kg Biju Moore [employer] Work Phone: CX-Susxmou-Cqzdsqe Work Phone: 03-01-2021 15:10-0500 Diastolic blood pressure 67 mm[Hg] Biju Moore [employer] Work Phone: TB-Wbimsau-Vnyjyjs Work Phone: 03-01-2021 15:10-0500 Heart rate 134 /min Biju Moore [employer] Work Phone: EX-Uafhbxu-Dakffer Work Phone: 03-01-2021 15:10-0500 Systolic blood pressure 124 mm[Hg] Biju Moore [employer] Work Phone: AU-Qecgekn-Fjwzqck Work Phone: 02-27-2021 13:55-0500 Body height 177.8 cm Biju Moore [employer] Work Phone: YC-Fcxyflyoqn-Sswg n 204 DO Work Phone: 02-27-2021 13:55-0500 Body mass index (BMI) [Ratio] 30.43 kg/m2 Biju Moore [employer] Work Phone: GL-Kogucxzlwl-Rupz n 204 DO Work Phone: 02-27-2021 13:55-0500 Body surface area Derived from formula 2.14 m2 Biju A [employer] Work Phone: WN-Ncthbrqqyg-Tmax n 204 DO Work Phone: 02-27-2021 13:55-0500 Body temperature 98 [degF] Biju Moore [employer] Work Phone: NG-Rwdluuyyoc-Rbko n 204 DO Work Phone: 02-27-2021 13:55-0500 Body weight 96.19 kg Biju Moore [employer] Work Phone: LP-Ukkrxxcpey-Tynf n 204 DO Work Phone: 02-27-2021 13:55-0500 Diastolic blood pressure 78 mm[Hg] Biju Moore [employer] Work Phone: QT-Photkpuljf-Kiyf n 204 DO Work Phone: 02-27-2021 13:55-0500 Heart rate 88 /min Biju Moore [employer] Work Phone: LY-Uxqymxiuez-Pcpl n 204 DO Work Phone: 02-27-2021 13:55-0500 SaO2% (BldA) [Mass fraction] 97 % Biju Moore [employer] Work Phone: QW-Jaudrlrgvy-Gzfj n 204 DO Work Phone: 02-27-2021 13:55-0500 Systolic blood pressure 126 mm[Hg] Biju Moore [employer] Work Phone: KS-Xuavnnmcde-Vnxc n 204 DO Work Phone: 01-25-2021 15:46-0500 Body height 177.8 cm Biju Moore [employer] Work Phone: GZ-Wswyotx-Mjahzfn d HC 232 DO Work Phone: 01-25-2021 15:46-0500 Body mass index (BMI) [Ratio] 25.4 kg/m2 Biju Moore [employer] Work Phone: QP-Yalpfeh-Nhqouqs d HC 232 DO Work Phone: 01-25-2021 15:46-0500 Body surface area Derived from formula 1.98 m2 Biju Moore [employer] Work Phone: CK-Eaqlysw-Vvejjph d HC 232 DO Work Phone: 01-25-2021 15:46-0500 Body weight 80.3 kg Biju Moore [employer] Work Phone: ZI-Gyqttrr-Dvszyod d HC 232 DO Work Phone: 01-25-2021 15:46-0500 Diastolic blood pressure 80 mm[Hg] Biju Moore [employer] Work Phone: MU-Pycisen-Wuooprv d HC 232 DO Work Phone: 01-25-2021 15:46-0500 Heart rate 83 /min Biju Moore [employer] Work Phone: ON-Lqlxzyx-Mjhfxqx d HC 232 DO Work Phone: 01-25-2021 15:46-0500 Systolic blood pressure 131 mm[Hg] Biju Moore [employer] Work Phone: DX-Clxevqk-Vlfapfh d HC 232 DO Work Phone: 12-07-2020 14:12-0400 Body height 177.8 cm Biju Moore [employer] Work Phone: AM-Xkpwumjt-Ectfuh de 1500 Work Phone: 12-07-2020 14:12-0400 Body mass index (BMI) [Ratio] 28.02 kg/m2 Biju Moore [employer] Work Phone: VQ-Yqyhjkup-Dlsdml de 1500 Work Phone: 12-07-2020 14:12-0400 Body surface area Derived from formula 2.07 m2 Biju Moore [employer] Work Phone: BZ-Rufmcxvd-Thwlbr de 1500 Work Phone: 12-07-2020 14:12-0400 Body temperature 97.9 [degF] Biju Lobo Work Phone: GJ-Ttjzathm-Gvaogl de 1500 Work Phone: 12-07-2020 14:12-0400 Body weight 88.59 kg Biju Lobo Work Phone: FW-Anjvotbg-Ajlrhd de 1500 Work Phone: 12-07-2020 14:12-0400 Diastolic blood pressure 73 mm[Hg] Biju Lobo Work Phone: GX-Lkwbzeln-Tnuagr de 1500 Work Phone: 12-07-2020 14:12-0400 Systolic blood pressure 119 mm[Hg] Biju Lobo Work Phone: GT-Jgnlohjh-Atlhiz de 1500 Work Phone: Encounters Encounter Date Encounter Type Care Provider Facility Start: 09-14-2024 ambulatory Richard Munoz Facility:[facility] Start: 09-11-[address] Richard Munoz DO -Pulmonary Rehab Work Phone: Start: 09-07-2024 End: 09-07-[address] Biuj Lobo DO Work Phone: -Pulmonary Rehab Start: 09-07-2024 End: 09-07-[address] Richard Munoz DO -Pulmonary Rehab Work Phone: Start: 09-07-2024 End: 09-07-2024 ambulatory Richard Munoz Facility:[facility] Start: 09-02-2024 End: 09-02-[address] Richard Munoz DO -[place] [facility] Work Phone: Start: 09-02-2024 End: 09-02-[address] Biju Lobo DO Work Phone: -[place] [facility] Start: 08-04-2024 End: 08-04-[address] Biju Lobo DO Work Phone: [facility] Work Phone: Start: 08-04-2024 End: 08-04-2024 Patient encounter procedure [employer] Tita Wick -Cat Scan [facility] Work Phone: Start: 08-04-2024 End: 08-04-2024 ambulatory Biju Lobo Facility:[facility] Start: 07-23-2024 End: 07-23-[address] Christian Hernandez MD -[facility] [facility] Work Phone: Start: 07-23-2024 End: 07-23-[address] Biju Lobo DO Work Phone: [facility] Work Phone: Start: 07-15-2024 End: 07-15-[address] Biju Lobo DO Work Phone: [facility] Work Phone: Start: 07-15-2024 End: 07-15-2024 Patient encounter procedure EPIFANIO Wick -[place] [facility] Work Phone: Start: 07-10-2024 End: 07-10-[address] Biju Lobo DO Work Phone: [facility] Work Phone: Start: 07-10-2024 End: 07-10-[address] Christian Hernandez MD -Radiology [facility] Work Phone: Start: 07-10-2024 End: 07-10-2024 ambulatory Christian Hernandez Facility:[facility] Start: 07-03-2024 ambulatory Richard Munoz [facility] Start: 07-03-2024 Non-patient / Non-visit Dr. Richard montelongo DO -[facility] Start: 07-02-2024 End: 07-02-[address] Biju Lobo DO Work Phone: [facility] Work Phone: Start: 07-02-2024 End: 07-02-2024 Patient encounter procedure [employer] Tita Wick -Pulmonary Services/Neurology Work Phone: Start: 07-02-2024 End: 07-02-2024 ambulatory Tita Wick Facility:[facility] Start: 06-29-2024 Non-patient / Non-visit Dr. Richard montelongo DO -[facility] Start: 06-29-2024 End: 06-29-[address] Biju Lobo DO Work Phone: [facility] Work Phone: Start: 06-29-2024 End: 06-29-2024 Patient encounter procedure [employer] Tita Wick -Pulmonary Services/Neurology Work Phone: Start: 06-29-2024 End: 06-29-2024 ambulatory Tita Wick Facility:[facility] Start: 06-24-2024 End: 06-24-2024 Office outpatient visit 15 minutes Hemant Galvan MD Work Phone: [facility] Comment on above: Bilateral vocal fold paralysis (Primary Dx); Tracheostomy dependence Start: 06-24-2024 ambulatory BIJU LOBO [facility] Start: 06-22-2024 Non-patient / Non-visit Dr. Harrison wilkes MD -[facility] Start: 06-22-2024 End: 06-22-[address] Biju Lobo DO Work Phone: [facility] Work Phone: Start: 06-22-2024 End: 06-22-[address] Christian Hernandez MD -Cardiovascular Services Work Phone: Start: 06-22-2024 End: 06-22-2024 ambulatory Christian Hernandez Facility:[facility] Start: 05-27-2024 End: 05-27-2024 ambulatory Biju Lobo Facility:[facility] Start: 05-27-2024 End: 05-27-2024 Patient encounter procedure EPIFANIO Wick -[facility] Work Phone: Start: 05-26-2024 End: 05-26-[address] Christian Hernandez MD -[facility] [facility] Work Phone: Start: 05-26-2024 End: 05-26-2024 ambulatory Christian Fishallyson Facility:[facility] Start: 04-15-2024 End: 04-15-2024 Patient encounter procedure EPIFANIO Wick -[facility] Work Phone: Start: 04-15-2024 End: 04-15-2024 ambulatory Biju Yamil Facility:[facility] Start: 04-13-2024 End: 04-13-[address] Biju Lobo DO Work Phone: [facility] Work Phone: Start: 04-13-2024 End: 04-13-[address] Gilbert Hoang MD -Laboratory Work Phone: Start: 04-13-2024 End: 04-13-2024 ambulatory [facility] Facility:[facility] Start: 04-01-2024 End: 04-01-[address] Gilbert Hoang MD -[facility] Work Phone: Start: 04-01-2024 End: 04-01-2024 ambulatory [facility] Facility:[facility] Start: 03-25-2024 End: 03-25-2024 Office outpatient visit 15 minutes Hemant Galvan MD Work Phone: [facility] Comment on above: Bilateral vocal fold paralysis (Primary Dx); Tracheostomy dependence Start: 03-25-2024 ambulatory BIJU [facility] Start: 03-24-2024 End: 03-24-[address] Akbar Archuleta MD -Laboratory Work Phone: Start: 03-24-2024 End: 03-24-2024 ambulatory Akbar Archuleta Facility:[facility] Start: 03-16-2024 End: 03-16-[address] Christian Hernandez MD -[facility] Work Phone: Start: 03-16-2024 End: 03-16-2024 ambulatory Christian Hernandez Facility:[facility] Start: 03-08-2024 End: 03-08-2024 Emergency department patient visit Dr. Ramos Randall MD -Emergency Department Work Phone: Start: 03-08-2024 End: 03-08-2024 ambulatory Facility:[facility] Start: 12-27-2023 End: 12-27-2023 Office outpatient visit 15 minutes Hemant Galvan MD Work Phone: [facility] Comment on above: Bilateral vocal fold paralysis (Primary Dx); Tracheostomy dependence Start: 12-27-2023 ambulatory MILLRY [facility] Start: 12-24-2023 End: 12-24-2023 ambulatory Biju [facility] Facility:[facility] Start: 12-10-2023 End: 12-10-2023 ambulatory Biju [facility] Start: 11-26-2023 End: 11-26-2023 ambulatory Biju RamirezYamil Facility:[facility] Start: 11-12-2023 End: 11-12-2023 ambulatory [facility] Facility:[facility] Start: 10-30-2023 ambulatory [facility]: [facility] Start: 10-30-2023 End: 11-02-2023 Evaluation and management of inpatient Biju RamirezYamil Facility:[facility] Start: 10-29-2023 ambulatory Biju Yamil Facility: [facility] Start: 10-28-2023 End: 10-28-2023 Emergency department patient visit [facility] Facility:[facility] Start: 10-28-2023 End: 10-28-2023 ambulatory II Rj Trammell Facility:[facility] Start: 10-22-2023 End: 10-23-2023 Evaluation and management of inpatient Danita Spaulding Facility:[facility] Start: 10-22-2023 ambulatory Danita Spaulding [facility] Start: 10-17-2023 End: 10-17-2023 ambulatory [facility] Facility:[facility] Start: 10-17-2023 End: 10-17-2023 Office outpatient visit 25 minutes Rj Trammell MD Work Phone: [facility] Comment on above: Benign prostatic hyp erplasia with urinary obstruction and other lower urinary tract symptoms; Nocturia; Erectile disorder; Urinary incontinence, unspecified type; Recurrent UTI Start: 10-11-2023 End: 10-11-2023 Emergency department patient visit Biju Lobo Facility:[facility] Start: 10-10-2023 End: 10-10-2023 ambulatory Biju Lobo Facility:[facility] Start: 10-02-2023 End: 10-02-2023 Office outpatient visit 25 minutes Hemant Galvan MD Work Phone: [facility] Comment on above: Bilateral vocal fold paralysis (Primary Dx); Tracheostomy dependence Start: 10-02-2023 ambulatory BIJU LOBO Facilit y:[facility] Start: 10-01-2023 End: 10-01-2023 ambulatory Biju Lobo Facility:[facility] Start: 09-02-2023 End: 09-07-2023 Evaluation and management of inpatient Hemant Galvan MD Work Phone: [facility] Comment on above: Bilateral vocal fold paralysis Start: 08-29-2023 ambulatory BIJU LOBO Facilit y:[facility] Start: 08-29-2023 Encounter for other preprocedural examination BIJU LOBO Facility:[facility] Start: 07-10-2023 End: 07-10-2023 Office outpatient new 45 minutes Hemant Galvan MD Work Phone: [facility] Comment on above: Bilateral vocal fold paralysis (Primary Dx); Stridor; Dyspnea on exertion Start: 07-10-2023 ambulatory RAJINDER GRIJALVA Facility :[facility] Start: 06-25-[address] Biju Lobo Work Phone: [facility]-Laboratory Work Phone: Start: 06-21-2023 End: 06-21-[address] Biju Lobo Work Phone: [facility] [facility] Work Phone: Start: 06-18-2023 End: 06-18-[address] Biju Lobo Work Phone: [facility] Work Phone: Start: 06-18-2023 End: 06-18-[address] [facility] Start: 06-18-2023 End: 06-18-[address] Biju Lobo Work Phone: [facility] Work Phone: Start: 05-29-2023 End: 05-29-2023 ambulatory [facility] Ambulatory Start: 05-29-2023 End: 05-29-2023 Office outpatient visit 25 minutes Rj Trammell MD Work Phone: [facility] Comment on above: Benign prostatic hyp erplasia with urinary obstruction and other lower urinary tract symptoms (Primary Dx); Nocturia; Erectile disorder Start: 05-17-2023 End: 05-17-[address] Biju Lobo Work Phone: [facility] Work Phone: Start: 05-17-2023 End: 05-17-[address] Biju Lobo [facility] Work Phone: Start: 05-16-2023 End: 05-16-[address] Biju Lobo Work Phone: [facility] Work Phone: Start: 05-16-2023 End: 05-16-[address] [facility]iju [facility] Start: 05-16-2023 End: 05-16-[address] Biju Lobo Work Phone: [facility] Medicine [facility] Work Phone: Start: 05-06-2023 End: 05-06-[address] Biju Lobo Work Phone: [facility] Work Phone: Start: 05-06-2023 End: 05-06-[address] Biju Lobo Work Phone: [facility]-Laboratory Work Phone: Start: 05-03-2023 End: 05-03-2023 Emergency department patient visit Dr. Biju Lobo Work Phone: [facility]-Emergency Department Work Phone: Start: 03-28-2023 End: 03-28-[address] Biju Lobo Work Phone: [facility] Work Phone: Start: 03-28-2023 End: 03-28-[address] Biju Lobo Work Phone: [facility] Start: 03-26-2023 End: 03-26-2023 ambulatory [facility] Start: 03-19-2023 Non-patient / Non-visit Dr. Brigitte Lobo Work Phone: [facility] Work Phone: Start: 03-18-2023 Non-patient / Non-visit Dr. Brigitte Lobo Work Phone: [facility] Start: 03-18-2023 Non-patient / Non-visit Dr. Brigitte Lobo Work Phone: [facility] Work Phone: Start: 03-17-2023 Non-patient / Non-visit Dr. Brigitte Lobo Work Phone: [facility] Work Phone: Start: 03-16-2023 Non-patient / Non-visit Dr. Brigitte Lobo Work Phone: [facility] Start: 03-16-2023 End: 03-19-2023 Evaluation and management of inpatient Dr. Biju Lobo Work Phone: [facility]-Medical Surgical 3 Work Phone: Start: 03-12-2023 End: 03-12-[address] Biju Lobo Work Phone: [facility] [place] Work Phone: Start: 02-04-2023 Non-patient / Non-visit Dr. Brigitte Lobo Work Phone: [facility] Start: 02-04-2023 End: 02-04-[address] Biju Lobo Work Phone: [facility] Work Phone: Start: 02-04-2023 End: 02-04-[address] Biju Lobo Work Phone: [facility]-Cardiovascula r Services Work Phone: Start: 01-31-2023 End: 01-31-[address] Biju Lobo Work Phone: [facility] Neurology Work Phone: Start: 12-17-2022 End: 12-17-[address] Biju Lobo Work Phone: [facility] [place] Work Phone: Start: 12-14-2022 End: 12-14-[address] Biju Lobo Work Phone: [facility] Work Phone: Start: 12-14-2022 End: 12-14-[address] Biju Lobo Work Phone: [facility]-Laboratory, OP Pavilion Start: 11-16-2022 End: 11-16-[address] Biju Lobo Work Phone: [facility]Pulmonary Medicine [facility] Work Phone: Start: 11-06-2022 AUDIT Biju Reesma n Work Phone: TN-Yqcqzfh-Wurhpwb Work Phone: Start: 11-03-2022 AUDIT Biju Reesma n Work Phone: KD-Rxgrcoqymz-Fsfsd Work Phone: Start: 10-09-2022 End: 10-09-[address] Biju Lobo Work Phone: [facility] Work Phone: Start: 10-09-2022 End: 10-09-[address] Biju Lobo Work Phone: [facility] Work Phone: Start: 09-25-2022 Office outpatient vi sit 15 minutes Biju Lobo Work Phone: QX-Icnggumwtr-Llrixp 140 [place] Work Phone: Start: 09-25-[address] Biju Lobo Facility:[id number] Start: 09-25-2022 End: 09-25-[address] Biju Lobo Work Phone: [facility] Work Phone: Start: 09-25-2022 End: 09-25-[address] Biju Lobo Work Phone: [facility] Work Phone: Start: 09-24-2022 End: 09-24-[address] Biju Lobo Work Phone: [facility] [facility] Work Phone: Start: 09-21-2022 AUDIT Biju henriquez Work Phone: CV-Qcwpqgnoex-Drabbx 140 [place] Work Phone: Start: 09-13-2022 End: 09-13-[address] Biju Lobo Work Phone: [facility]-Sleep Lab Work Phone: Start: 09-11-2022 End: 09-11-[address] Biju Lobo Work Phone: [facility] Work Phone: Start: 09-10-2022 AUDIT Biju henriquez Work Phone: LY-Dvgutbamla-Rajnq Work Phone: Start: 08-31-2022 Non-patient / Non-visit Dr. Brigitte Lobo Work Phone: [facility] Start: 08-30-2022 End: 08-30-[address] Biju Lobo Work Phone: [facility] Work Phone: Start: 08-30-2022 End: 08-30-[address] Biju Lobo Work Phone: [facility]-Pulmonary Services/Neurology Work Phone: Start: 08-24-2022 Non-patient / Non-visit Dr. Brigitte Lobo Work Phone: [facility] Start: 08-23-2022 End: 08-23-[address] Biju Lobo Work Phone: [facility] Work Phone: Start: 08-23-2022 End: 08-23-[address] Biju Lobo Work Phone: [facility]-Pulmonary Services/Neurology Work Phone: Start: 07-03-2022 End: 07-03-[address] Biju Lobo Work Phone: [facility] Work Phone: Start: 07-03-2022 End: 07-03-[address] Biju Lobo Work Phone: [facility]-Pulmonary Medicine [facility] Start: 06-28-2022 End: 06-28-[address] Biju Lobo Work Phone: [facility] Work Phone: Start: 06-28-2022 End: 06-28-[address] Biju Lobo Work Phone: [facility]-Sleep Lab Start: 06-19-2022 End: 06-19-[address] Biju Lobo Work Phone: [facility] Work Phone: Start: 06-19-2022 End: 06-19-[address] Biju Lobo Work Phone: [facility]-Laboratory Start: 06-07-2022 AUDIT Biju henriquez Work Phone: DI-Yhpvtdhuhk-Uqury Work Phone: Start: 06-04-2022 End: 06-04-[address] Biju Lobo Work Phone: [facility] Neurology Start: 05-21-2022 Non-patient / Non-visit Dr. Brigitte Lobo Work Phone: [facility]-BN Start: 05-21-2022 End: 05-21-[address] Biju Lobo Work Phone: [facility] Work Phone: Start: 05-21-2022 End: 05-21-[address] Biju Lobo Work Phone: [facility]-Pulmonary Services/Neurology Start: 05-09-2022 AUDIT Biju Rose n Work Phone: SL-Whehxejizn-Znzijb 140 [place] Work Phone: Start: 05-02-2022 End: 05-02-2022 ambulatory [facility] Work Phone: Start: 05-02-2022 End: 05-02-2022 [facility] Start: 04-11-2022 End: 04-11-2022 ambulatory [facility] Work Phone: Start: 04-11-2022 End: 04-11-2022 [facility] Start: 03-28-2022 FUV, Provider: Rj Trammell II, Status: Pen, Time: 1:15 PM Biju Lobo Work Phone: JP-Bxfhyktoas-Vwgazh 140 [place] Work Phone: Start: 03-28-2022 Office outpatient vi sit 25 minutes Biju Reesman Work Phone: JK-Ppfuian-Ferwgrw Work Phone: Start: 03-27-2022 Office outpatient vi sit 25 minutes Biju Moore Yamil Work Phone: XB-Iadlcwfuuc-Lwgcbt 140 [place] Work Phone: Start: 03-09-2022 AUDIT Biju Reesma n Work Phone: YB-Egwytjw-Htijxzd Work Phone: Start: 02-22-2022 End: 02-22-2022 ambulatory [facility] Work Phone: Start: 02-22-2022 End: 02-22-2022 Patient encounter procedure [facility]-Laboratory Start: 02-07-2022 Patient encounter procedure Biju Lobo Work Phone: [facility] [facility] Work Phone: Start: 01-25-2022 Chart Update Biju Reesma n Work Phone: [facility] [facility] Work Phone: Start: 01-24-2022 End: 01-24-2022 Emergency department patient visit [facility]-Emergency Department Start: 01-08-2022 Office outpatient vi sit 15 minutes Biju Lobo Work Phone: [facility] [facility] Work Phone: Start: 01-08-2022 Patient encounter procedure Biju Lobo Work Phone: [facility] [facility] Work Phone: Start: 12-25-2021 Chart Update Biju Teresa Cabrerama n Work Phone: KX-Cimolgfjcb-Czzqge 140 [place] Work Phone: Start: 12-14-2021 AUDIT Biju Moore Strichardma n Work Phone: JP-Jcdixveleo-Htdju Work Phone: Start: 12-09-2021 End: 12-09-2021 Emergency department patient visit Dr. Biju Lobo Facility:[id number] Start: 12-08-20[facility] RM [facility],[id number], Status: Pen, Time: 8:00 PM Biju Teresa Yamil Work Phone: VT-Ulolidqtqt-Ypqkb Work Phone: Start: 12-08-2021 AUDIT Biju Moore Stutzma n Work Phone: YA-Tlcwuakjcl-Fkyvdp 140 [place] Work Phone: Start: 12-07-2021 Chart Update Biju Moore Strichardma n Work Phone: HK-Wupbhvjxqj-Wmqnj Work Phone: Start: 11-27-2021 Office outpatient vi sit 25 minutes Biju Lobo Work Phone: [facility] [place] Work Phone: Start: 11-27-2021 Patient encounter procedure Biju Lobo Work Phone: [facility] [facility] Work Phone: Start: 11-22-2021 AUDIT Biju Moore Stutzma n Work Phone: ZY-Xyhvzcqwu-Zxcnu 204 Work Phone: Start: 11-14-2021 Office outpatient ne w 45 minutes Biju Lobo Work Phone: YJ-Umufjkszts-Omlnas 140 [place] Work Phone: Start: 11-01-2021 Patient encounter procedure Biju Lobo Work Phone: [facility]-Pulmonary Medicine-[place] [facility] Work Phone: Start: 10-26-2021 AUDIT Biju Reesma n Work Phone: RT-Zkmwrnfkun-Dbeuo Work Phone: Start: 10-11-2021 Current tobacco non- user cad cap copd pv dm Biju Lobo Work Phone: IF-Yfpqkbjthz-Vhfkfo 140 [place] Work Phone: Start: 09-18-2021 End: 09-18-2021 [facility] Start: 09-14-2021 Chart Update Biju Moore Strichardma n Work Phone: EN-Bdnuohjsuk-Qvbgz Work Phone: Start: 09-11-2021 Office outpatient vi sit 25 minutes Biju Moore Yamil Work Phone: YI-Ranrsbvuky-Xuexux 140 [place] Work Phone: Start: 09-05-2021 End: 09-05-2021 Patient encounter procedure [facility] Start: 06-23-2021 NPV, Provider: Jayne Godinez, Status: Pen, Time: 2:30 PM Biju Lobo Work Phone: [facility] [facility] Work Phone: Start: 06-21-2021 Office outpatient vi sit 15 minutes Biju Lobo Work Phone: [facility]-Pulm Sleep-[place] 200 Work Phone: Start: 06-21-2021 Patient encounter procedure Biju Reesman Work Phone: [facility] [facility] Work Phone: Start: 06-07-2021 AUDIT Biju Reesma n Work Phone: YM-Wssocfqf-Hqdfqqd Benítez Work Phone: Start: 06-03-2021 End: 06-08-2021 Evaluation and management of inpatient Yvan Walker [facility] L[facility] 60 Rm [id number] Start: 05-17-2021 AUDIT Biju Moore Stutzma n Work Phone: [facility] [facility] Work Phone: Start: 05-02-2021 Office outpatient vi sit 25 minutes Biju Lobo Work Phone: [facility]bp[facility] Work Phone: Start: 05-02-2021 Patient encounter procedure Biju Lobo Work Phone: JQ-Slfhxazfcvvknn-Tghq trammell Work Phone: Start: 04-19-2021 AUDIT Biju A Stutzma n Work Phone: XK-Fmbweefcujwzve-Pbex MOB02 [place] Work Phone: Start: 04-06-2021 AUDIT Biju A Stutzma n Work Phone: RN-Vcuukxslibtjos-Nfsz man Voice Work Phone: Start: 04-05-2021 Patient encounter procedure Biju A Yamil Work Phone: LE-Ywtumveyt-Cvbvqhd 4200 Work Phone: Start: 04-05-2021 VIRFUVICKIE, Provider : Kailyn Michel, Status: Pen, Time: 1:00 PM Biju A Yamil Work Phone: JS-Kmpclomovr-Khoyr 204 [place] Work Phone: Start: 04-03-2021 Office outpatient vi sit 25 minutes Biju A Yamil Work Phone: ZL-Zawtmdbmmm-Rpbuy 204 [place] Work Phone: Start: 03-22-2021 NPVPRE, Provider: Macario Bond, Status: Pen, Time: 2:00 PM Biju A Yamil Work Phone: BN-Shlopvrjzzovie-Cceq man Voice Work Phone: Start: 03-22-2021 Office outpatient ne w 45 minutes Biju A Yamil Work Phone: [facility] [facility] Work Phone: Start: 03-22-2021 Patient encounter procedure Biju A Yamil Work Phone: [facility] [facility] Work Phone: Start: 03-08-2021 Chart Update Biju Reesma n Work Phone: KK-Hbsvcboqux-Mibdh 204 [place] Work Phone: Start: 03-07-2021 Office consultation new/estab patient 60 min Biju A Yamil Work Phone: PB-Rjrfssxldyxjan-Abas man Voice Work Phone: Start: 03-01-2021 FUV, Provider: Rj Trammell II, Status: Pen, Time: 3:00 PM Biju A Yamil Work Phone: MG-Rkwtzmkonp-Wpayf 204 [place] Work Phone: Start: 03-01-2021 Office outpatient ne w 45 minutes Biju Lobo Work Phone: UX-Elxboqi-Lxcxvpg Work Phone: Start: 02-27-2021 Office consultation new/estab patient 80 min Biju Lobo Work Phone: ZP-Hzoyvxyxva-Dhgro 204 [place] Work Phone: Start: 02-24-2021 Chart Update Biju Rose n Work Phone: SC-Qpuaueeo-Jzvfenhk 1500 Work Phone: Start: 01-25-2021 Office outpatient ne w 45 minutes Biju Lobo Work Phone: DL-Erelguz-Kdaevaez HC 232 [place] Work Phone: Start: 12-07-2020 Patient encounter procedure Biju Lobo Work Phone: IP-Nuprdass-Kwydwrzs 1500 Work Phone: Procedures Date Procedure Procedure [...] Start: 05-16-2023 Plain chest X-ray Dr. Link Loob Work Phone: Start: 05-03-2023 Plain chest X-ray [...] RSV VACCINE (1 - 1-dose 75+ series) [facility] Start: 06-04-2026 Lipid panel Lipid Panel [facility] Start: 10-19-2024 Influenza vaccination INFLUENZ A VACCINE (Season Ended) [facility] Start: 10-14-2024 End: 10-14-2024 Patient encounter procedure 10/14/2024 1:00 PM EDT Office Visit [facility] [address] [address] Hemant Galvan MD [facility] Ary [facility] [address] [place] [address] [facility] Start: 09-06-2024 Potassium [Moles/vol ume] in Serum or Plasma POTASSIUM [facility] Start: 07-16-2024 Patient referral [facility] Work Phone: Start: 07-02-2024 Walking distance 6 minutes [facility] Start: 06-29-2024 Measurement of respiratory function [facility] Start: 06-24-2024 End: 06-24-2024 Patient encounter procedure 06/24/2024 11:20 AM EDT Office Visit [facility] [address] [address] Hemant aGlvan MD [address] [facility] [address] [place] [address] [facility] Start: 06-19-2024 Patient referral [facility] Work Phone: Start: 06-03-2024 End: 06-03-2024 Patient encounter procedure 06/03/2024 1:00 PM EDT Office Visit [facility] [address] [facility] [address] [place] [address] Rj Trammell MD [address] [place], [place] [id number] [facility] Start: 05-19-2024 End: 05-28-2024 Prostate specific Ag [Mass/volume] in Serum or Plasma Prostate Specific Antigen Lab Routine Nocturia Expected: 05/19/2024 (Approximate), Expires: 05/28/2024 [facility] Service Area Work Phone: Comment on above: Expected: 05/19/2024 (Approximate), Expires: 05/28/2024 Start: 03-25-2024 End: 03-25-2024 Patient encounter procedure 03/25/2024 11:20 AM EST Office Visit [facility] [address] [place] [id number] Hemant Galvan MD [address] [facility] [address] [place] [address] [facility] Start: 03-08-2024 [facility] Start: 03-08-2024 [facility] Start: 12-27-2023 End: 12-27-2023 Patient encounter procedure 12/27/2023 11:00 AM EST Office Visit [facility] [address] [place] [address] Hemant Galvan MD [address] [facility] [address] [place] [address] [facility] Start: 10-20-2023 COVID-19 VACCINE ( season) COVID-19 VACCINE () [facility] Start: 10-20-2023 Influenza vaccination INFLUENZA VACC INE (#1) [facility] Start: 10-08-2023 End: 10-08-2023 Patient encounter procedure 10/08/2023 3:00 PM EDT Office Visit [facility] [address] [facility] [address] [place] [phone] Nevin Rogers MD PhD [address] [facility] [address], [address] [place] [address] [facility] Start: 10-02-2023 End: 10-02-2023 Patient encounter procedure 10/02/2023 9:20 AM EDT Office Visit [facility] [address] [place] [address] Hemant Galvan MD [address] [facility] [address] [facility] [address] [place] [address] [facility] Start: 07-10-2023 End: 07-09-2024 CT Neck W contrast IV CT NECK WITH CONTRAST Imaging Routine Bilateral vocal fold paralysis Stridor Expected: 07/10/2023, Expires: 07/09/2024 [facility] Comment on above: Expected: 07/10/2023 , Expires: 07/09/2024 Start: 06-12-2023 End: 06-12-2023 Patient encounter procedure 06/12/2023 2:30 PM EDT Office Visit [facility] [address] [facility] [address] [place] [id number] Nevin Rogers MD PhD [address] [facility], [address] [place] [address] [facility] Start: 05-16-2023 Patient referral [facility] Work Phone: Start: 05-14-2023 Abdominal aortic ane urysm screening [facility] Start: 05-14-2023 Pneumococcal vaccination PNEUM OCOCCAL VACCINE SERIES (1 of PCV) [facility] Start: 05-03-2023 [facility] Start: 03-26-2023 FUV, Provider: Nevin Rogers, Status: Pen, Time: 3:30 PM FUV, Provider: Nevin Rogers, Status: Pen, Time: 3:30 PM OX-Dxrlynvygt-Ikjwqv 140 [place] Work Phone: Start: 03-19-2023 Patient discharge [facility] Start: 03-16-2023 End: 03-16-2023 [facility] Start: 03-16-2023 Following clinical pathway protocol [facility] Start: 03-16-2023 Ambulation without limitation [facility] Start: 03-16-2023 Assessment of risk o f venous thromboembolism [facility] Start: 03-16-2023 Fluid intake encouragement [facility] Start: 03-16-2023 Insertion of cathete r into peripheral vein [facility] Start: 03-16-2023 Measuring intake and output [facility] Start: 03-16-2023 Notification of physician [facility] Start: 03-16-2023 Providing care accor ding to standard [facility] Start: 03-16-2023 Referral to gastroenterology service [facility] Start: 03-16-2023 [facility] Start: 03-16-2023 Oxygen therapy [facility] Start: 03-16-2023 Streptococcus pneumo niae antigen assay [facility] Start: 03-16-2023 [facility] Start: 03-16-2023 Bacteria identified in Blood by Culture Blood Culture [facility] Start: 03-16-2023 Bacteria identified in Urine by Culture [facility] Start: 03-16-2023 Lactoferrin [Presenc e] in Stool by Immunoassay [facility] Start: 03-16-2023 Measurement of occul t blood in stool specimen using immunoassay [facility] Start: 03-16-2023 Hospital admission, emergency, from emergency room, medical nature [facility] Start: 03-16-2023 Verification routine [facility] Start: 03-16-2023 Admission procedure [facility] Start: 03-16-2023 End: 03-16-2023 Blood culture [facility] Start: 03-16-2023 Giardia lamblia anti gen assay [facility] Start: 03-16-2023 Protein measurement [facility] Start: 03-16-2023 Blood chemistry [facility] Start: 03-16-2023 Triacylglycerol lipa se measurement [facility] Start: 03-16-2023 [facility] Start: 03-16-2023 Enteric precautions [facility] Start: 03-16-2023 Inhalation therapy procedure [facility] Start: 12-18-2022 Creatinine measurement Creatinine Le salvador [facility] Start: 12-18-2022 Potassium measurement Potassium Leve l [facility] Start: 10-19-2022 COVID-19 Vaccine ( season) COVID-19 Vaccine () [facility] Start: 09-25-2022 FUV, Provider: Nevin Rogers, Status: Pen, Time: 3:45 PM FUV, Provider: Nevin Rogers, Status: Pen, Time: 3:45 PM MS-Rmqvlzjjng-Vbsgbq 140 [place] Work Phone: Start: 09-11-2022 Thyroid stimulating hormone measurement TSH Level [facility] Start: 06-05-2022 Echocardiography [facility] Start: 06-04-2022 Diabetes mellitus screening Diabetes Screening [facility] Start: 04-30-2022 FUVPRE, Provider: Leta Lu, Status: Pen, Time: 1:00 PM FUVPRE, Provider: Leta Lu, Status: Pen, Time: 1:00 PM [facility] [facility] 6 Sleep Work Phone: Start: 03-28-2022 FUV, Provider: Rj Trammell II, Status: Pen, Time: 1:15 PM FUV, Provider: Rj Trammell II, Status: Pen, Time: 1:15 PM RN-Uvmakwr-Erifnrg Work Phone: Start: 03-27-2022 FUV, Provider: Nevin [...] Nevin Rogers, Status: Pen, Time: 3:45 PM MR-Gxtgmgoyrc-Ppgpxj 140 [place] Work Phone: Start: 01-24-2022 End: 01-24-2022 [facility] Start: 01-08-2022 FUVPRE, Provider: Leta Lu, Status: [...] Sleep Work Phone: Start: 12-08-2021 ADLTPSG, Provider: [facility] RM 2,[id number], Status: Pen, Time: 8:00 PM ADLTPSG, Provider: [facility] RM 2,[id number], Status: Pen, Time: 8:00 PM CH-Slndhbwjq-Juybk 204 Work Phone: Start: 11-27-2021 FUVPRE, Provider: Leta Lu, Status: Pen, Time: 1:30 PM FUVPRE, Provider: Leta Lu, Status: Pen, Time: 1:30 PM [facility] [facility] Work Phone: Start: 11-14-2021 NPV, Provider: Nevin Rogers, Status: Pen, Time: 3:00 PM NPV, Provider: Nevin Rogers, Status: Pen, Time: 3:00 PM KQ-Hbynlhnjzy-Lvpubf 140 [place] Work Phone: Start: 11-01-2021 Patient encounter procedure [facility] Start: 10-11-2021 FUV, Provider: Jayne Godinez, Status: Pen, Time: 1:30 PM FUV, Provider: Jayne Godinez, Status: Pen, Time: 1:30 PM AM-Kdlyyschsz-Elvdpi 140 [place] Work Phone: Start: 10-04-2021 Patient [...] Princess Mireille, Status: Pen, Time: 2:30 PM NO-Ftviulsenc-Fytfq 204 DO Work Phone: Start: 06-26-2021 Patient encounter procedure [facility] Start: 06-23-2021 NPV, Provider: Jayne Godinez, Status: Pen, Time: 2:30 PM NPV, Provider: Jayne Godinez, Status: Pen, Time: 2:30 PM LW-Vgzsapfi-Hpzhgxu Benítez Work Phone: Start: 06-23-2021 Patient encounter procedure [facility] Start: 06-21-2021 FUVPRE, Provider: Macario Bond, Status: Pen, Time: 1:30 PM FUVPRE, Provider: Macario Bond, Status: Pen, Time: 1:30 PM [facility] [facility] Work Phone: Start: 06-21-2021 Patient encounter procedure [facility] Start: 06-07-2021 Coronary artery disease Olmos ry artery disease Date: 07-Jun-2021 [facility] Start: 06-07-2021 End: 06-08-2022 Polyethylene Glycol 17 gram Oral Powder Daily PRN ; Powder for Reconstitution (MIRALAX)DOSE = 17 gram(s) Oral 2 Times a Day Start: 07-Jun-2021 End: 07-Jun-2022 Ordered: 07-Jun-[address] [facility] Start: 06-05-2021 End: 06-06-2022 Albuterol 90 micrograms/ Inhalation MDI 2 inhalation Every 6 Hours PRN ; (PROVENTIL, VENTOLIN)DOSE = 2 inhalation Every 4 Hours via MDI, PRN Shortness of BreathNotes from Pharmacy: [facility] Start: 05-Jun-2021 End: 05-Jun-2022 Ordered: 05-Jun-[address] [facility] Start: 06-04-2021 End: 06-04-2022 [facility] Start: 05-02-2021 FUV, Provider: Sudheer Mcfarlane, Status: Pen, Time: 9:45 AM FUV, Provider: Sudheer Mcfarlane, Status: Pen, Time: 9:45 AM [facility] Work Phone: Start: 05-02-2021 FUV, Provider: Sudheer Mcfarlane, Status: Pen, Time: 9:40 AM FUV, Provider: Sudheer Mcfarlane, Status: Pen, Time: 9:40 AM DH-Lkpvjjsoypbasx-Sb idman Voice Work Phone: Start: 04-05-2021 VIRFUVHOME, Provider : aKilyn Michel, Status: Pen, Time: 1:00 PM VIRFUVHOME, Provider: Kailyn Michel, Status: Pen, Time: 1:00 PM UL-Rvxrfdlevdbsee-Yi idman Voice Work Phone: Start: 04-03-2021 FUV, Provider: Princess Mireille, Status: Pen, Time: 2:30 PM FUV, Provider: Princess Mireille, Status: Pen, Time: 2:30 PM ZO-Eztsopfftb-Fhxzr 204 DO Work Phone: Start: 03-29-2021 CYSTOSCOPY, Provider : [facility] RM,[id number], Status: Pen, Time: 2:45 PM CYSTOSCOPY, Provider: [facility] PROCEDURE RM,[id number], Status: Pen, Time: 2:45 PM BY-Kfvvmcx-Gxyvkjt Work Phone: Start: 03-22-2021 NPVPRE, Provider: Macario Bond, Status: Pen, Time: 2:00 PM NPVPRE, Provider: Macario Bond, Status: Pen, Time: 2:00 PM [facility] Work Phone: Start: 03-22-2021 NPV, Provider: Quita Zarate, Status: Pen, Time: 9:00 AM NPV, Provider: Quita Zarate, Status: Pen, Time: 9:00 AM HO-Zjbrrzwb-Okgrcqsw 1500 Work Phone: Start: 03-07-2021 NPV, Provider: Sudheer Mcfarlane, Status: Pen, Time: 11:00 AM NPV, Provider: Sudheer Mcfarlane, Status: Pen, Time: 11:00 AM XS-Yfdqxxgkyj-Adaml 204 DO Work Phone: Start: 03-01-2021 FUV, Provider: Rj Trammell II, Status: Pen, Time: 3:00 PM FUV, Provider: Rj Trammell II, Status: Pen, Time: 3:00 PM GR-Ffpbxtbz-Rgmoiucu 1500 Work Phone: Start: 02-27-2021 NPV, Provider: Princess Mireille, Status: Pen, Time: 2:00 PM NPV, Provider: Princess Mireille, Status: Pen, Time: 2:00 PM ZT-Akkiwsoa-Pdomcbhg 1500 Work Phone: Start: 02-22-2021 FUV, Provider: Rj Trammell II, Status: Pen, Time: 3:45 PM FUV, Provider: Rj Trammell II, Status: Pen, Time: 3:45 PM KH-Zkymfad-Wlqjygqr HC 232 DO Work Phone: Start: 2018 RSV patient s and/or patients aged 60+ years (1 - 1-dose 60+ series) RSV patients and/or patients aged 60+ years (1 - 1-dose 60+ series) [facility] Start: 2018 RSV VACCINE (1 - 1-d ose 60+ series) RSV VACCINE (1 - 1-dose 60+ series) [facility] Start: 2013 Prostate specific an tigen measurement PROSTATE CANCER SCREENING DISCUSSION [facility] Start: 2008 Prostate specific an tigen measurement PROSTATE CANCER SCREENING DISCUSSION [facility] Start: 2008 Zoster vaccine hzv l david for subcutaneous use ZOSTER (SHINGLES) VACCINE (1 of 2) [facility] Start: 2008 Zoster Vaccines (1 of 2) Zoste r Vaccines (1 of 2) [facility] Start: 05-14-2003 Screening for malign ant neoplasm of colon COLORECTAL CANCER SCREENING DISCUSSION [facility] Start: 1998 Lipid panel LIPID SCREENING [facility] Start: 1980 DTaP/Tdap/Td Vaccine s (1 - Tdap) DTaP/Tdap/Td Vaccines (1 - Tdap) [facility] Start: 1977 Third diphtheria, te tanus and acellular pertussis (DTaP) vaccination TDAP (ADULT) [facility] Start: 1976 Hepatitis C screening Hepatitis C Sc rachel [facility] Start: 1964 Pneumococcal Vaccine : 65+ Years (1 of 2 - PCV) Pneumococcal Vaccine: 65+ Years (1 of 2 - PCV) [facility] Start: 05-14-1959 MMR Vaccines (1 of 1 - Standard series) MMR Vaccines (1 of 1 - Standard series) [facility] Start: 1958 Annual wellness visit Medicare Initial Physical (IPPE) [facility] Start: 1958 Hepatitis C screening HEPATITI S C VIRUS SCREENING [facility] Start: 1958 Screening for malign ant neoplasm of colon [facility] Start: 1958 Tetanus vaccination TETANUS [facility] Start: 1958 Thyroid stimulating hormone measurement TSH [facility] Bilirubin measuremen t, urine [facility] Clostridioides diffi cile DNA [Presence] in Unspecified specimen by YOLY with probe detection [facility] CT Chest WO contrast [facility] CT Chest WO contrast [facility] CTA Head vessels and Neck vessels W contrast IV [facility] Exercise tolerance test [facility] Exercise tolerance test [facility] Gastrointestinal pathogens panel - Stool by YOLY with probe detection [facility] Hemoglobin [Presence ] in Urine [facility] Lactoferrin [Presenc e] in Stool by Immunoassay [facility] Laryngoscopy flx/rgd telescopic w/stroboscopy [place] LARYNGOSCOPY FLX/RGD TELESCOPIC W/STROBOSCOPY [place] Charge Routine Bilateral vocal fold paralysis Stridor Dyspnea on exertion Ordered: 07/10/2023 [facility] Comment on above: Ordered: 07/10/2023 Legionella pneumophi la Ag [Presence] in Urine [facility] Lipid 1996 panel - S joceline or Plasma [facility] Magnesium [Mass/volu me] in Serum or Plasma [facility] Measurement of keton es in urine using dipstick [facility] Measurement of respiratory function [facility] Measurement of respiratory function [facility] Microscopic urinalysis [facility] MR Brain WO and W contrast IV [facility] NM Heart Views W str ess and W radionuclide IV [facility] Organism count, microscopic method [facility] Ova and parasites identified in Unspecified specimen by Light microscopy [facility] Ova and parasites identified in Unspecified specimen by Light microscopy [facility] Patient Education [facility] Work Phone: Patient referral [facility] Work Phone: pH of Urine [facility] Polysomnography [facility] Serum inorganic phos phate measurement [facility] Specific gravity of Urine [facility] Urine dipstick for glucose [facility] Urine dipstick for leukocyte esterase [facility] Urine dipstick for nitrite [facility] Urine dipstick for protein [facility] Urine examination [facility] Urine microscopy: epithelial cells [facility] Urine microscopy: re d cells [facility] Urobilinogen [Presen ce] in Urine [facility] Carotid arteries [facility] US Carotid arteries [facility] US Heart [facility] Videoswallow [facility] White blood cell count [facility] Immunizations Immunization Date Immunization Notes Care Provider Fa joie 06-17-2023 Pneumococcal Vaccine PCV20 (Prevnar 20) Dr. Biju Lobo DO Work Phone: [facility] 12-17-2022 influenza, injectabl e, quadrivalent, preservative free Dr. Biju Lobo Work Phone: [facility] 12-17-2022 influenza virus vacc ine, unspecified formulation Hemant Galvan MD Work Phone: [facility] 12-22-2020 Moderna COVID-19 Vac cine 100 MCG/0.5ML Intramuscular Suspension Biju Lobo Work Phone: [place] [address] Work Phone: 04-07-2020 Moderna COVID-19 Vac cine 100 MCG/0.5ML Intramuscular Suspension Biju Lobo Work Phone: [facility] Work Phone: 03-10-2020 Moderna COVID-19 Vac cine 100 MCG/0.5ML Intramuscular Suspension Biju Lobo Work Phone: [facility] Work Phone: 12-21-2018 Influenza, injectabl e, [place] [place] Canine Kidney, quadrivalent with preservative Biju Lobo Work Phone: [facility] Work Phone: 12-31-2012 influenza, seasonal, injectable Biju Lobo Work Phone: [facility] Work Phone: Payers Date Payer Category Payer Unknown 0 2023 Self-pay [id number] 2023 Managed Care (unspecified) MEDICARE SUPPLEMENT [id number] 2023 Medicare [id number]. [id number]. [id number] 2023 Unknown 2023 Medicare [id number] 2023 Unknown [id number] 2021 Unknown [id number] 1960 Unknown [id number] 2.16.840.1.000753.3.579.2. 1069 1958 Unknown [id number] 2.16.840.1.750840.3.579.2. 356 1958 Unknown [id number] 2.16.840.1.724247.3.579.2. 1245 1958 Unknown [id number] 2.16.840.1.226766.3.579.2. 1244 1958 Unknown [id number] 2.16.840.1.310725.3.579.2. 594 1958 Unknown [id number] 2.16.840.1.716192.3.579.2. 594 1958 Unknown [id number] 2.16.840.1.390370.3.579.2. 594 1958 Unknown [id number] 2.16.840.1.587306.3.579.2. 594 1958 Unknown [id number] 2.16.840.1.311294.3.579.2. 594 1958 Unknown [id number] 2.16.840.1.667292.3.579.2. 594 1958 Unknown [id number] 2.16.840.1.786340.3.579.2. 594 1958 Unknown [id number] 2.16.840.1.350576.3.579.2. 594 Unknown [id number] [facility] PACKAGE PLAN [id number] Unknown [id number] 2.16.840.1.095201.3.579.2. 462 Unknown [id number] 2.840.1.192672.3.579.2. 462 Unknown [id number] 2.16840.1.926352.3.579.2. 462 Unknown [id number] 2.16840.1.333105.3.579.2. 462 Unknown [id number] 2.840.1.385582.3.579.2. 462 Unknown [id number] 2.840.1.090090.3.579.2. 462 Unknown [id number] 2.840.1.318479.3.579.2. 462 Unknown [id number] 2.840.1.962236.3.579.2. 462 Unknown [id number] 2.840.1.517424.3.579.2. 462 Unknown [id number] 2.840.1.625500.3.579.2. 462 Unknown [id number] 2.840.1.381901.3.579.2. 462 Unknown [id number] 2.840.1.159553.3.579.2. 462 Unknown [id number] 2.840.1.333837.3.579.2. 462 Unknown [id number] 2.840.1.532222.3.579.2. 462 Unknown [id number] 2.840.1.418189.3.579.2. 462 Unknown [id number] 2.840.1.461187.3.579.2. 462 Unknown [id number] 2.840.1.366044.3.579.2. 462 Unknown [id number] 2.840.1.285366.3.579.2. 462 Unknown [id number] 2.840.1.697046.3.579.2. 462 Unknown [id number] 2.16.840.1.455692.3.579.2. 462 Unknown [id number] 2.16.840.1.865537.3.579.2. 462 Unknown [id number] 2.16.840.1.020507.3.579.2. 462 Unknown [id number] 2.16.840.1.244531.3.579.2. 462 Unknown [id number] 2.16.840.1.449173.3.579.2. 462 Unknown [id number] 2.16.840.1.155339.3.579.2. 462 Unknown [id number] 2.16.840.1.384638.3.579.2. 462 Unknown [id number] 2.16.840.1.020684.3.579.2. 462 Unknown [id number] 2.16.840.1.215723.3.579.2. 462 Unknown [id number] 2.16.840.1.340954.3.579.2. 462 Unknown [id number] 2.16.840.1.274225.3.579.2. 462 Unknown [id number] 2.16.840.1.187443.3.579.2. 462 Unknown [id number] 2.16.840.1.417307.3.579.2. 462 Unknown [id number] 2.16.840.1.696974.3.579.2. 462 Unknown [id number] 2.16.840.1.799329.3.579.2. 462 Unknown [id number] 2.16.840.1.024891.3.579.2. 462 Unknown [id number] 2.16.840.1.406909.3.579.2. 462 Unknown [id number] 2.16.840.1.788063.3.579.2. 462 Unknown [id number] 2.16.840.1.630676.3.579.2. 462 Unknown [id number] 2.16.840.1.406741.3.579.2. 462 Unknown [id number] 2.16.840.1.002859.3.579.2. 462 Social History Date Type Detail Facility Start: 05-29-2023 End: 06-24-2024 Current every day smoker Current every day smoker XS-Jynifec-Ffpuzvkh HC 232 DO Work Phone: Start: 01-13-2021 End: 06-18-2023 Tobacco smoking consumption unknown [facility] Start: 1960 Sex Assigned At Male [facility] Start: 03-26-2023 End: 09-07-2024 Tobacco smoking status NHIS Ex-smoker [facility] End: 02-18-2021 History of tobacco use Current smoker [facility] Work Phone: End: 02-18-2021 History of tobacco use Cigarette Smoker [facility] Work Phone: Start: 03-26-2023 End: 07-10-2023 Tobacco use and exposure Smokeless tobacco non-user [facility] Work Phone: Start: 05-29-2023 End: 06-24-2024 Tobacco use panel [facility] Work Phone: Start: 1960 [facility] Start: 05-19-2023 End: 05-29-2023 Exposure to SARS-CoV-2 (event) Not sure [facility] Start: 07-10-2023 End: 06-24-2024 Alcoholic beverage intake Ex-drinker (finding) [facility] Adolescent depressio n screening assessment 0 [facility] Has the electric, gas, oil, or water company threatened to shut off services in your home in past 12Mo No [facility] (I/We) worried whether (my/our) food would run out before (I/we) got money to buy more. Never true [facility] Start: 03-19-2024 Gender identity Identifies as male gender (finding) [facility] Start: 03-19-2024 Sexual orientation Heterosexual (priya gaxiola) [facility] Start: 06-28-2023 End: 04-24-2024 Sex Male (finding) [facility] NEGATED: Highlighted row Denies Current every day smoker Denies Current every day smoker [facility] [facility] Work Phone: Goals Date Patient Goal Desired Activity /State Functional Status Date Assessment Result Facility 09-02-2023 Are you deaf, or do you have serious difficulty hearing No 09/02/2023 6:00 PM EDT Reyna Ta RN No [facility] 09-02-2023 Are you blind, or do you have serious difficulty seeing, even when wearing glasses No 09/02/2023 6:00 PM Reyna Tolliver RN No [facility] 09-02-2023 Do you have serious difficulty walking or climbing stairs Yes 09/02/2023 6:00 PM EDReyna Florez RN Yes [facility] 09-02-2023 Do you have difficul ty dressing or bathing No 09/02/2023 6:00 PM Reyna Tolliver, RN No [facility] 09-02-2023 Because of a physica l, mental, or emotional condition, do you have difficulty doing errands alone such as visiting a physician's office or shopping No 09/02/2023 6:00 PM EDReyna Florez RN No [facility] 03-19-2023 Functional status Ambulates [facility] Work Phone: Functional observable [facility] Mental Status Date Assessment Result Facility 09-02-2023 Because of a physica l, mental, or emotional condition, do you have serious difficulty concentrating, remembering, or making decisions Yes 09/02/2023 6:00 PM EDReyna Florez RN Yes [facility] 03-19-2023 Cognitive function Voice/Name [facility] Work Phone: 06-05-2021 Cognitive functi ons :37 [facility] Clinical Notes 02-27-2019 to 09-07-2024 Note Date & Type Note Facility 09-07-2024 History and physi minh note Note Date/Time September 07, 2024 6:51pm [facility] Pulmonary Rehab Reports [address] [place] [address] [place] - History & Physical MR#: [id number] Acct: [id number] Name: FREDDIE COLE Rep #:[id number] : [...] 100 mg capsule 100 mg PO MOWEFR iwfclwa46/02/24 furosemide 40 mg tablet (Lasix) 20 mg [...] Do you have a Healthcare Power of Physical Science Technician?: Yes Living Will: Yes Advance Directives Information [...] Date Pj Almanza MD CC: ~ Signed [facility] Work Phone: 1([phone] 374-662907-21-2025 History and physical note [facility] Pulmonary Rehab Reports [address] [place] [address] [place] - History & Physical MR#: [id number] Acct: [id number] Name: FREDDIE COLE Rep #:[id number] : [...] 100 mg capsule 100 mg PO MOWEFR erhleuo61/02/24 furosemide 40 mg tablet (Lasix) 20 mg [...] Do you have a Healthcare Power of Physical Science Technician?: Yes Living Will: Yes Advance Directives Information [...] 1534 er BS, RVT> Date _ Jono Gregorio BS, RVT Outcome assessment reviewed. Exercise plan [...] Date Pj Almanza MD CC: ~ Signed [facility]06-18-2025 Radiology Diagnostic study note [facility] Imaging Services [address] [place], [place] [id number] Chest without Contrast MR#: [id number] Acct: [id number] Name: FREDDIE COLE Rep #: [id number] : 1960 M 64 From: Jayleen Smart MD PCP: Dr. Biju Lobo, DO Status: REG CLI Study:Chest without Contrast Date of Exam: 08/04/24 Exam# [id number] Ordering Dr: Tita Wick SUPERVISOR PYROTECHNIC LOADING-C PROCEDURE: CHEST WITHOUT CONTRAST 08/04/2024 REASON FOR [...] probably reflux. Mild diffuse spondylosis. Reading Location: [place] [address] CC: Dr. Biju Lobo, DO; Tita Wick NP ~ Engine Maintenance Mechanic: Signed [facility]05-28-2025 Progress note Author SUPERVISOR PYROTECHNIC LOADING Tita Wick [facility] Services Note Date/Time July 15, 2024 2:38p m [facility] Pulmonary Medicine of [address] [place] [address] OFFICE VISIT Date of Service: 07/15/24 MR#: [id number] Acct: [id number] Name: FREDDIE COLE Rep #: [id number] : 1960 Provider: Tita jaramillo NP Age/Sex: [...] month. This patient was last hospitalized at [facility] from August 12 through August 15, [...] 7am and 5pm, Yupelri 10:30am. With the [employer] program he has been able to obtain [...] Reasons: 6-8 wk f u Chief Complaint: Search Engine Optimization Analyst Required: No Accompanied by: Is patient in pain?: No Allergies vibegron (From [employer]) Allergy (Severe, Verified 07/15/24 13:50) Rash Medications [...] you fallen in the past year?: Yes [facility] Medical History Transient hypotension Acute dyspnea Acute [...] Cosignjesse Signature: Date (if applicable) CC: ~ [facility] Work Phone: [phone] Progress [facility] Pulmonary Medicine of [address] [place] [address] OFFICE VISIT Date of Service: 07/15/24 MR#: [id number] Acct: [id number] Name: FREDDIE COLE Rep #: [id number] : 1960 Provider: Tita jaramillo NP Age/Sex: 64/M Location: [facility].PM[facility] Status: Signed Assessment and Plan Assessment and [...] month. This patient was last hospitalized at [facility] from August 12 through August 15, [...] 7am and 5pm, Yupelri 10:30am. With the [employer] program he has been able to obtain [...] Reasons: 6-8 wk f u Chief Complaint: Search Engine Optimization Analyst Required: No Accompanied by: Is patient in pain?: No Allergies vibegron (From [employer]) Allergy (Severe, Verified 07/15/24 13:50) Rash Medications [...] you fallen in the past year?: Yes [facility] Medical History Transient hypotension Acute dyspnea Acute [...] in the past year?: Yes 07/15/245 damien SUPERVISOR PYROTECHNIC LOADING-C> Date _ Tita Wick SUPERVISOR PYROTECHNIC LOADING-C Otoniel Signature: Date (if applicable) CC: ~ [facility]05-23-2025 Procedure note [facility] Speech Pathology [address] [place] [address] Modified Barium Swallow Study MR#: [id number] Acct: [id number] Name: FREDDIE COLE Rep #:[id number] : 1960 64 From: Lucy tucker M.A. [facility]-SAP HANA DEVELOPER Modified Barium Swallow Patient Information Study Date: [...] Status Active ST Patient: Active Contact Information [facility] Speech Therapy:: Lucy Kumar M.A. SAP HANA DEVELOPER Speech-Language Pathologist [facility] [address] [facility] [place] [address] [email or web address] [phone] 07/10/24 1401 buck Freedman CCC-SAP HANA DEVELOPER> Date/Time Lucy Kumar M.A., CCC-SAP HANA DEVELOPER Co-Signature Required for all Medicare patients Date/Time Co-Signature CC: ~ [facility]05-16-2025 Procedure notey [facility] Pulmonary Services/Neurology [address] [place] [address] MR#: [id number] Acct: [id number] Name: FREDDIE COLE Rep #:[id number] : 1960 64 From: Richard Munoz DO Referring Dr: Tita Wick SUPERVISOR PYROTECHNIC LOADING-C Status: REG CLI Location: [facility] Date: Sex: M C PSN 6 Minute Walk Test 6 Minute Walk Test 6 Minute Walk Test: 6 Minute Walk Test PSN:6-Minute Walk Test Start: 07/02/24 12:50 Freq: Status: Active Protocol: RESP.6MINW Document 07/02/24 12:51 SFENTON (Rec: 07/02/24 12:54 SFENTON [id number]) 6 Minute Walk Test Date Performed 07/02/24 [...] Date Dictated: 07/03/24 111 Date Transcribed: 07/03/241111 Engine Maintenance Mechanic: Dr. Richard Muonz DO Signed [facility]05-07-2025 History of Present illness Narrative* Hemant Galvan [...] TUBE TRACH CUFFLESS 7.5MM SHILEY FLEX [id number] [facility] note * Diagnosis Onset Date Resolution [...] 1:31am Dysphagia inactive July 23, 2024 11:31am [facility] Work Phone: 1(630) 977-737504-08-2025 Evaluation note* Diagnosis Onset Date Resolution Status [...] overlap syndrome chronic September 02, 2024 11:11am [facility] Work Phone: [phone] Evaluation note* Diagnosis Onset Date Resolution Status [...] occlusion inactive July 23, 2024 1 1:31am [facility] Work Phone: 1([phone]) 884-500302-12-2025 Evaluation note* Diagnosis Onset Date Resolution Status [...] apnea) chroni c July 15, 2024 1:42pm [facility] Work Phone: 1([phone]) 200-818002-05-2025 History of Present illness Narrative* Hemant Galvan [...] TUBE TRACH CUFFLESS 7.5MM SHILEY FLEX [id number] documented in this [facility]01-27-2025 Evaluation note * Diagnosis Onset [...] apnea) chroni c April 15, 2024 11:10am [facility] Work Phone: [phone]) 338-580701-27-2025 Evaluation note* Diagnosis Onset Date Resolution Status [...] apnea) chroni c May 27, 2024 1:45pm [facility] Work Phone: 1(938) 748-380011-08-2024 History of Present illness Narrative* Hemant Galvan [...] change at next visit. [facility]-2024 NoteAcceptable Specimen? Acceptable Specimen(Evaluation not needed) Gram Stain 2+ White Blood Cells 2+ Gram positive cocci in chains and clusters Rare Gram positive rods Rare Yeast Like OrganismsWMagruder Memorial HospitalComment on above:Performed By: #### M100.2400, M100.1999 ####[facility] [address] [place], [phone] [facility]09-04-2024 [facility]09-03-2024 [facility]08-29-2024 History of Present illness Narrative* Rj [...] Discussed patient doing CIC documented in this [facility] Work Phone: 1(769) 451-911308-14-2024 History of Present illness Narrative* Hemant Galvan [...] at next visit. [facility]07-20-2024 Nurse Note* Nursing Notes - Reyna Baltazar RN - 09/07/2023 11:16 AM EDT VSS, Aox4, patient denies pain, tolerating diet per baseline. Tracheostomy in place, no signs/symptoms of distress, respiratory treatment delivered per RT prior to discharge. Discharge instructions reviewed at bedside with patient and family, faxed ahead to [facility]. Attempted to call report to receiving facility with no answer, left message on secure voicemail with callback number. All questions/concerns addressed with patient and family, IV removed with no complications. Patient discharged via EMS with all medical supplies, personal belongings taken by family. Reyna Baltazar RN [facility]07-20-2024 Miscellaneous Notes* Nursing Notes - Reyna Baltazar RN - 09/07/2023 11:16 AM EDT VSS, Aox4, patient denies pain, tolerating diet per baseline. Tracheostomy in place, no signs/symptoms of distress, respiratory treatment delivered per RT prior to discharge. Discharge instructions reviewed at bedside with patient and family, faxed ahead to [facility]. Attempted to call report to receiving facility [...] 09/02/2023 6:47 PM EDT On admission to [facility], from PACU a dual RN initial assessment [...] PROCEDURE: 1. Tracheostomy SURGEON: Hemant Galvan MD WASHER OPERATOR: Efe Mcnulty MD ANESTHESIA: General ESTIMATED BLOOD [...] mechanical ventilatory circuit. Proper tidal volumes and [id number] were confirmed. 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 Trach change POD4 to 6UN75R Domoniqueley. Diet/SAP HANA DEVELOPER: ADAT, SAP HANA DEVELOPER only if concerns Antibiotics: periop Activity: routine [...] Efe Mcnulty MD [facility] History of Present illness Narrative* Hemant Galvan [...] in 4 weeks. Hemant Galvan M.D. Residency Ramp Boss Department of Otolaryngology-Head and Neck Surgery * [...] Shiley cuffless trach in place and patent, Passy-Pryor valve in place Non-labored breathing, in no [...] Airway: 6UN75R Shiley trach, Rosa Elena flap. Diet/SAP HANA DEVELOPER: ADAT, SAP HANA DEVELOPER only if concerns Antibiotics: periop Activity: routine [...] : 09/07/2023 Final Discharge Planning Discharge Disposition: [facility] Facility Services at Discharge: Occupational Therapy, Physical Therapy, [facility] Selected Continued Care - Admitted Since 09/02/2023 Destination Coordination complete. Service Provider Selected Services Address Phone Fax Patient Preferred [facility] [address] [place] [address] [phone] -- -- Community Agency Name(s) For Handoff: [facility] Phone For Handoff: Fax For Handoff: Plan Plan: Patient will discahrge to [facility] at discharge Patient/Family In Agreement With Plan: yes Transportation Transport Request Mode of Transfer: BLS Name of Discharge Transport Company: [email or web address] Discharge Transport ETA: 09/07/23, 10:30a Belkys GARCIA,RN [facility] Weekend Clinical Supervisor Cytogenetic Laboratory Available on secure chat. * Paula Abraham - 09/06/2023 10:28 AM EDT 09/06/23 1028 Transport Request Mode of Transfer BLS Name of Discharge Transport Company [employer] Discharge Transport ETA 09/07/23, 10:30a This pt [facility] be picked up from [facility] [id number] [facility] [phone] * RETA Gasca - 09/06/2023 8:30 AM EDT Acute Care Speech-Language Pathology Voice Prosthesis Evaluation (Speaking Valve) Speaking Valve Recommendations: Speaking valve when awake/alert, as tolerated. Remove speaking valve when sleeping Discharge Recommendations: Based on the below outcome measures/assessment score(s) and SAP HANA DEVELOPER clinicaljudgment, Discharge Destination Recommendation: Deferred to PT/OT recomendations related to mobility (Outpatient SAP HANA DEVELOPER as needed for any questions re: speaking valve use or use of intelligibility strategies) Acute SAP HANA DEVELOPER Outcomes Tracking Communicate basic wants and needs?: [...] (completed prior to admission.) MD Linda Sneed, SAP HANA DEVELOPER Anesthesia: Topical lidocaine and Afrin Complications: None [...] to Visit: Nursing Lines/Tubes/Drains (Rehab Status): Telemetry SAP HANA DEVELOPER Existing Precautions/Restrictions: supplemental oxygen Respiratory Status: Type: [...] with no evidence of air trapping; therefore, SAP HANA DEVELOPER proceeded with placement of speaking valve. Patient [...] through the vocal folds, mouth, and nose. SAP HANA DEVELOPER discussed airflow changes with speaking valve vs open trach. SAP HANA DEVELOPER explained benefits of speaking valve use to include potential improvements in swallow function, expedited trach weaning, improved oxygenation, improved olfaction, improved airway clearance and secretion management, and reduced risk of infection vs digital occlusion. Educationproviding regarding safety precautions/contraindications, wearing schedule, and cleaning instruction s. Education provided regarding safety with donning and doffing of the speaking valve. SAP HANA DEVELOPER emphasized importance of trach stabilization during placement [...] session: Review intelligibility strategies if needed Acute SAP HANA DEVELOPER Goals Plan of Care by RETA Gasca [...] Treatment Time (skilled, billable minutes): 25 minutes SAP HANA DEVELOPER Evaluation and Treatment Time Evaluation for Use/Fit of Voice Prosthetic Device 67650: 25 Speech Language Pathologist: RETA Gasca Time In: 829 Time Out: 0900 Total Visit Time: 30 minutes Total Treatment Time (skilled, billable minutes): 25 minutes PPE used during patient interaction: facemask, gloves Patient location/status at end of session: chair Patient alarms at end of session: none altered Needs in reach. SAP HANA DEVELOPER Evaluation and Treatment Time Evaluation for Use/Fit of Voice Prosthetic Device 78652: 25 Upon discontinuation of Acute Care Speech [...] for discharge tomorrow. Hemant Galvan M.D. Residency Ramp Boss Department of Otolaryngology-Head and Neck Surgery * [...] Airway: 6UN75R Shiley trach, Rosa Elena flap. Diet/SAP HANA DEVELOPER: ADAT, SAP HANA DEVELOPER only if concerns Antibiotics: periop Activity: routine Consults: prn Labs/Replacement: routine, can discontinue if stable Anticoagulation: Restart home meds including Plavix POD1 PMHx:CAD, asthma, COPD, HTN, HLD, HF, hypothyroidism, MARYJO, Parkinson's disease Daily Plan: - Ciprodex drops down trach tube - Regular diet - Case management for trach supplies, suction, humidification - SAP HANA DEVELOPER for PMV - Reach out to sleep [...] there were still no accepting [facility] agencies. Reviewed messagessent by covering CM to SNFs near pts home as alternative placement. A request for clinical documentation and notes was received from the facilities messaged. Clinical information,notes and vitals sent to SNF facilities. -Daughter's FOC [facility] SNF-[facility] asked for time to review and they would notfiyus if they can accept 09/[facility]) [facility] (see below) [facility] 6 [facility] 5 Viewed [facility] 4 Viewed [facility] SNF- Pending Approval [facility] 7 Under Review Send again [facility] 5 Under Review Send again [facility] 3 Under Review Send again Will reconvene with family Saturday morning for SNFchoice/dispo planning. Anticipated discharge disposition: Home with Home Health vs SNF Anticipated Services at Discharge: Outpatient follow up, [facility], Outpatient wound/drain/ostomy care, Wound/drain/line/ostomy-supplies Barriers to Discharge: Facility/Agency Issue, Home Care Explanation of Barriers: Patient medically ready for discharge placement Belkys GARCIA RN CM Clinical Supervisor Cytogenetic Laboratory Available on secure chat. Please note that I am a float case management coordinator and may not cover the same service every day. Please call the Main Supervisor Cytogenetic LaboratoryFish Cake Maker at [phone] for up to date coverage. * Hemant [...] in two days. Hemant Galvan M.D. Residency Ramp Boss Department of Otolaryngology-Head and Neck Surgery * [...] flap. Trach change POD4 to 6UN75R Angeles. Diet/SAP HANA DEVELOPER: ADAT, SAP HANA DEVELOPER only if concerns Antibiotics: periop Activity: routine [...] with pt, and daughter Bessy Britt P [phone] @ bedside and reviewed dc plans. Informed no accepting [facility] agencies @ present. This CM extended deadline and added [facility] Home health services per family request. Timeline deadline tomorrow @ 10am. Family and pt state concerned about discharge to home on Saturday. State want pt to go to [facility] TCU / SNF. Agreeable to SNF referrals. Reason for Consult: SNF Consulted By: pt and family Level(s) of Care Discussed: SNF Patient and/or Seniour Insight Manager's Preferred Geographic Area for Discharge: 15 miles from home address Patient and/or Seniour Insight Manager's Preference for Providers to Include? 1.[facility] TCU/SNF Patient and/or Seniour Insight Manager's Preference for Providers to Exclude? 1.na Patient and/or Seniour Insight Manager's Discussion: Discussed referral process with the patient and/or manufacturing sales representative. Patient and/or manufacturing sales representative isagreeable to have placement referral initiated. Paula Alexandre RN, BSN Clinical Supervisor Cytogenetic Laboratory [phone] *Please note that I am a float case management coordinator and that I may not cover the [...] cuffless Shiley trach. Hemant Galvan M.D. Residency Ramp Boss Department of Otolaryngology-Head and Neck Surgery * [...] flap. Trach change POD4 to 6UN75R [place]. Diet/SAP HANA DEVELOPER: ADAT, SAP HANA DEVELOPER only if concerns Antibiotics: periop Activity: routine [...] Spouse, Child(tate) Information Source Name/Contact: Machelle Cole [phone] Demographics Verified and Updated: Yes Has the [...] Yes Oxygen Provider and Contact : Jessica [phone] Order for oxygen use?: prn Portable tank?: [...] patient have prescription insurance coverage? : Yes [facility] [address] [place] [phone] - [address] [facility] [phone] Manager Of Creative Services Does the patient or manufacturing sales representative express financial concerns? : No Employed?: Yes Coping/Stress Concerns about patient s coping and stress?: No Concerns about patient s caregiver s coping and stress?: No Values and Beliefs Cultural or cheondoism practices that may impact discharge planning and/or medical care?: No Initial Discharge Planning Anticipated discharge disposition: Home with Home Health Transportation Available for Discharge: Family or Friend, Private Vehicle Anticipated DME: oxygen (trach supplies) Anticipated Services at Discharge: [facility] Patient Assessment Completed: Initial Expected Discharge Date: Saturday Discharge Planning Summary Patient will discharge home with new trach supplies, suctioning, humidifier. Additionally he will need a walk of life for O2. He gets his O2 through [facility] ([phone]) but family is adamant to [employer] for the trach supplies.Patient also wants a home heatlh nurse to reinforce trach teaching. Referrals sent and order pended. [facility] [...] needs IADL History IADLs: independent Primary Language: Filipino Objective/Observation: Vitals/Vitals Responses to Treatment: VSS O2 [...] noted Mobility Assessment: Supine to Sit Mobility Tina Level: Supine->Sit: independent Transfer Assessment: Sit to Stand Transfer Tina Level: Sit->Stand: independent Stand to Sit Transfer Tina Level: Stand->Sit: independent Bed-Chair Transfer Tina Level: Bed<->Chair: independent Outcome Score(s): CURRENT [facility] Daily Activity Inpatient Short Form Putting on/Taking Off Lower Body Clothin - No Assistance Bathin - A Little Assistance Toiletin - No Assistance Putting on/Taking Off Upper Body Clothin - No Assistance Groomin - No Assistance Eatin - No Assistance CURRENT [facility] Activity Raw Score: 23 CURRENT [facility] Activity Functional Limitation/Modifier: 15.86% Currently Impaired in [...] Limits Mobility Assessment: Supine to Sit Mobility Tina Level: Supine->Sit: independent Balance: Sitting Balance Static Sitting-Level of Assistance: Independent Dynamic Sitting-Level of Assistance: Independent Standing Balance Static Standing-Level of Assistance: Independent Dynamic Standing-Level of Assistance: Independent Transfer Assessment: Sit to Stand Transfer Tina Level: Sit->Stand: independent Gait/Functional Mobility: Gait Assessment Tina Level: Gait: independent Ambulation Distance (Feet): 5 Stairs: Outcome Score(s): CURRENT [facility] Basic Mobility Inpatient Short Form Turning over in bed: 4 - No Assistance Moving from lying on back to sittin - No Assistance Moving to and from bed to chair: 4 - No Assistance Sitting/standing from chair: 4 - No Assistance Walk in hospital room: 4 - No Assistance Climbing 3-5 steps with a railin - No Assistance CURRENT [facility] Mobility Raw Score: 24 CURRENT [facility] Mobility Functional Limitation: 0.00% Impaired in [...] flap. Trach change POD4 to 6UN75R Domoniqueley. Diet/SAP HANA DEVELOPER: ADAT, SAP HANA DEVELOPER only if concerns Antibiotics: periop Activity: routine [...] cuffless Shiley trach. Hemant Galvan M.D. Residency Ramp Boss Department of Otolaryngology-Head and Neck Surgery [facility] Plan of care note* Plan of Care - RETA Gasca - 09/06/2023 8:30 AM EDT Problem: Speaking Valve Goal: Communication 1 - Patient will use respiration/phonation coordination strategies with no cuesto increase vocal intensity across 15 minutes while donning speaking valve and maintaining physiologic stability to improve functional communication Outcome: Ongoing [facility]07-19-2024 Plan of care note* Plan of [...] completion at recommended discharge destination. Outcome: Progressing [facility]07-18-2024 Nurse Note* Nursing Notes - EMILY [...] minutes were spent with patient and/or nurse. [facility] Work Phone: 1(279) 359-734007-18-2024 Plan of care note* Plan of Care - Gabrielle Conte RN - 09/05/2023 3:30 AM EDT Problem: Adult Inpatient Plan of Care Goal: Plan of Care Review Outcome: Progressing Goal: Patient-Specific Goal (Individualized) Outcome: Progressing Goal: Absence of Hospital-Acquired Illness or Injury Outcome: Progressing Goal: Optimal Comfort and Wellbeing Outcome: Progressing Goal: Readiness for Transition of Care Outcome: Progressing [facility]07-17-2024 Nurse Note* Nursing Notes - Aislinn [...] is mobile at home and requires portability. [facility]07-17-2024 Nurse Note* Nursing Notes - David Caruso RN - 09/04/2023 11:59 AM EDT Family teaching at bedside. completed trach inner cannula exchange, suction, and trach tie exchange. [facility]07-16-2024 Plan of care note* Plan of [...] completion at recommended discharge destination. Outcome: Ongoing [facility]07-15-2024 Nurse Note* Nursing Notes - Reyna Ta RN - 09/02/2023 6:47 PM EDT On admission to [facility], from PACU a dual RN initial assessment of skin condition was performed by Reyna Ta RN and Nereyda Alvarez. Skin Assessment: Skin within defined limits:Yes Mg Score: 16 LDA Added:No Reyna Ta RN [facility]07-15-2024 Surgery Postoperative evaluation and management note* Op Note - Efe Mcnulty MD - 09/02/2023 3:52 PM EDT Operative Report DATE OF SERVICE: 09/02/2023 PATIENT: Freddie Cole PREOPERATIVE DIAGNOSIS: 1. Bilateral true vocal fold paralysis POSTOPERATIVE DIAGNOSIS: 1. Bilateral true vocal fold paralysis PROCEDURE: 1. Tracheostomy SURGEON: Hemant Galvan MD WASHER OPERATOR: Efe Mcnulty MD ANESTHESIA: General ESTIMATED BLOOD [...] mechanical ventilatory circuit. Proper tidal volumes and [id number] were confirmed. The tracheostomy was then secured [...] participated through the entirety of the procedure. [facility] Work Phone: 1(694) 414-652107-15-2024 Surgery Postoperative evaluation and management note* Brief Op Note - Efe Mcnulty MD - 09/02/2023 3:52 PM EDT Freddie Cole ([id number]) PRE OPERATIVE DIAGNOSIS Bilateral vocal fold paralysis [J38.02] POST OPERATIVE DIAGNOSIS Bilateral vocal fold paralysis [J38.02] PROCEDURE PERFORMED Procedure(s) (LRB): TRACHEOSTOMY (Midline) PRIMARY CLOSURE N/A INTRAOPERATIVE FINDINGS Prior scar tissue, 6 cuffed Shiley placed SURGEON Surgeons and Role: * Hemant Galvan MD - Primary ANESTHESIOLOGIST Anesthesiologist: Ning Wing MD METAL FABRICATING INSPECTOR: Lev Chavez APRN-METAL FABRICATING INSPECTOR SURGICAL STAFF Chief Steward/Stewardess: Ondina Garza RN; Biju Govea RN Resident Assisting: Efe Mcnulty MD Administrator: Elidia Phillips COMPLICATIONS None ESTIMATED BLOOD LOSS Minimal SPECIMENS No specimen sent * No specimens in log * Efe Mcnulty MD September 02, 2023 3:52 PM [facility]07-15-2024 Plan of care note* Plan of Care - Efe Mcnulty MD - 09/02/2023 2:48 PM EDT ENT Plan of Care Diagnosis: Bilateral true vocal fold paralysis (idiopathic, 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 Rosa Elena flap. Trach change POD4 to 6UN75R Angeles. Diet/SAP HANA DEVELOPER: ADAT, SAP HANA DEVELOPER only if concerns Antibiotics: periop Activity: routine [...] Carole 10/01 scheduled Efe Mcnulty MD [facility]07-15-2024 Attending History and physical note* Hemant Galvan [...] fiberoptic laryngoscopy with stroboscopy MD Linda Sneed, SAP HANA DEVELOPER Anesthesia: Topical lidocaine and Afrin Complications: None [...] and he will consider these surgical options. [facility]07-15-2024 History and physical note* Hemant Galvan [...] with stroboscopy Hemant Carole, MD Linda Soummers, SAP HANA DEVELOPER Anesthesia: Topical lidocaine and Afrin Complications: None [...] fiberoptic laryngoscopy with stroboscopy MD Linda Sneed, SAP HANA DEVELOPER Anesthesia: Topical lidocaine and Afrin Complications: None [...] consider these surgical options. documented in this [facility]07-10-2024 History and physical note* Hemant [...] fiberoptic laryngoscopy with stroboscopy MD Linda Sneed, SAP HANA DEVELOPER Anesthesia: Topical lidocaine and Afrin Complications: None [...] and he will consider these surgical options. [facility]05-22-2024 History of Present illness Narrative* Hemant [...] fiberoptic laryngoscopy with stroboscopy MD Linda Sneed, SAP HANA DEVELOPER Anesthesia: Topical lidocaine and Afrin Complications: None [...] consider these surgical options. documented in this [facility]04-10-2024 History of Present illness Narrative* [...] 1 year with PSA documented in this [facility] Work Phone: 1(809) 380-401401-30-2024 Progress note Author Harrison Spears [facility] March 19, 2023 10:23am Note Date/Time March 19, 2023 8 :16am [facility] Medical Records Department [address] [place] [address] Progress Note - Hospitalist 03/19/23 0814 MR#: [id number] Acct: [id number] Name: FREDDIE COLE Rep #:[id number] : 1960 62 From: Harrison Spears DO PCP: Dr. Biju Lobo DO Status:ADM IN [facility] Reason for Visit Reason for Visit: Diagnoses [...] % (Auto) 67.0, Lymph % (Auto) 22.9, [place] % (Auto) 7.6, Eos % (Auto) 2.0, [...] cortical renal cyst. * discussed with the tire technician Dr. Beauchamp. Consult requested. * Stool studies: [...] history of GERD. He was referred to [facility] tertiary care outpatient. EGD on 11/23/2020 shows [...] Cosigner Signature (if applicable): CC: ~ Signed [facility] Work Phone: 1(889) 158-773001-29-2024 Progress note Author Harrison Spears [facility] March 18, 2023 3:09pm Note Date/Time March 18, 2023 8 :51am [facility] Medical Records Department [address] [place] [address] Progress Note - Hospitalist 03/18/23 0844 MR#: [id number] Acct: [id number] Name: FREDDIE COLE Rep #:[id number] : 1960 62 From: Harrison Spears DO PCP: Dr. Biju Lobo, Status:ADM IN Location: [place] 115735-1 Reason for Visit Reason for Visit: Diagnoses [...] Neut % (Auto) 66.4, Lymph % (Auto) 22.1,[place] % (Auto) 9.2, Eos % (Auto) 1.9, [...] cortical renal cyst. * discussed with the tire technician Dr. Beauchamp. Consult requested. * Stool studies: [...] history of GERD. He was referred to [facility] tertiary care outpatient. EGD on 11/23/2020 shows [...] subcu daily. Charges/Coding Visit Charges Inpatient E&M: 54229 Subs Hosp L2 03/18/23 1509 <Electronically signed by Harrison Spears DO> Cosigner Signature (if applicable): CC: ~ Signed [facility] Work Phone: 1(452) 136-483601-29-2024 Procedure [facility] 03-18-2023 Procedure [facility]01-29-2024 Procedure note [facility]01-29-2024 Procedure [facility] 03-17-2023 Progress note Author Delfin Russell [facility] March 17, 2023 11:58am Note Date/Time March 17, 2023 1 1:58am [facility] Medical Records Department [address] [place] [address] Progress Note - Hospitalist 03/17/23 0811 MR#: [id number] Acct: [id number] Name: FREDDIE COLE Rep #:[id number] : 1960 62 From: Delfin Dyer PCP: Dr. Biju Lobo DO Status:ADM IN Location: [place] [address] Reason for Visit Reason for Visit: Diagnoses [...] (Auto) 70.6 H, Lymph % (Auto) 22.0, [place] % (Auto) 6.2, Eos % (Auto) 0.6, [...] Clarity Clear, Urine pH 6.0, Ur Specific [place] 1.015, Urine Protein 15 H, Urine Glucose [...] % (Auto) 69.9, Lymph % (Auto) 20.4, [place] % (Auto) 7.8, Eos % (Auto) 1.2, [...] and cortical renal cyst. Discussed with the tire technician Dr. Beauchamp. Consult requested. Possible differentials were [...] or advanced directive. His is power of personal injury attorney for health. After discussion of benefits/risks [...] Clarity Clear, Urine pH 6.0, Ur Specific [place] 1.015, Urine Protein 15 H, Urine Glucose [...] % (Auto) 69.9, Lymph % (Auto) 20.4, [place] % (Auto) 7.8, Eos % (Auto) 1.2, [...] lobe atelectasis. Charges/Coding Visit Charges Inpatient E&M: 63939 Subs Hosp L2 03/17/23 1158 <Electronically signed by Delfin Russell MD> Cosigner Signature (if applicable): CC: ~ Signed [facility] Work Phone: 1(784) 894-455601-28-2024 Discharge summary Author Moses Grady [facility] March 16, 2023 10:55pm Note Date/Time March 16, 2023 1 0:23am [facility] Medical Records Department [address] [place] [address] Emergency Department Summary 03/16/23 MR#: [id number] Acct: [id number] Name: FREDDIE COLE Rep #:[id number] : 1960 62 From: Moses Falcon PCP: Dr. Biju Lobo, DO Status:ADM IN Location: [place] ZP366-6 HPI History of Present Illness Chief Complaint: [...] review I see that he was prescribed [id number] January 2023). He states he saw pulmonology about 4 days ago. He was treated for oral thrush. He states that since starting that medicine his dry mouth seems to be better. Patient notes no fever. He denies any history of colitis diverticulitis food intolerances. He gets most of his care through [facility] cardiology and urology is through at [facility]. Hedenies any other new medications. He denies any change in medication dosing.. states she is feeling fine. He does not wear home oxygen. He does not feel short of breath. No change in cough. [facility] Medical History (Updated 03/16/23 @ 13:23 [...] (Auto) 70.6 H Lymph % (Auto) 22.0 [place] % (Auto) 6.2 Eos % (Auto) 0.6 [...] failure, Diarrhea Disposition Disposition: Acute Care Hospital [facility] What to do if you have Problems For any increased pain, shortness of breath, bleeding, nausea or vomiting, chestpain, or any unexpected problems, contact your Primary Care Provider. Call [facility] ([phone]) or report to the closest Emergency Room. Call 911 if necessary. 03/16/23 9907 <Electronically signed by Moses Grady DO> Cosigner Signature (if applicable): CC: Dr. Biju Lobo DO ~ Signed [facility] Work Phone: 1(911) 194-749601-27-2024 Consult note Author Ravinder Friend [facility] March 16, 2023 4:50pm Note Date/Time March 16, 2023 4 :36pm [facility] Medical Records Department [address] [place] [address] Consultation - GI 03/16/23 1633 MR#: [id number] Acct: [id number] Name: FREDDIE COLE Rep #:[id number] : 1960 62 From: Ravinder Friend DO PCP: Dr. iBju Lobo, DO Status:ADM IN Location: [facility] [id number] HPI Consult Data Date of Consult: 03/16/23 [...] distal small bowel. Colonicdiverticulosis without acute diverticulitis. [facility] Medical History Abnormal CT of the chest Acute deep vein thrombosis of lower extremity Alcohol use Arthritis Bilateral hearing loss DVT (deep venous thrombosis) Gastric reflux High cholesterol History of nuclear stress test Hypothyroidism MARJYO (obstructive sleep apnea) Smoker Wears glasses Home [...] Low Dose Aspirin) [address] [facility] 01/24/22 [History Last Taken Unknown] clopidogrel 75 [...] (Auto) 70.6 H, Lymph % (Auto) 22.0, [place] % (Auto) 6.2, Eos % (Auto) 0.6, [...] Clarity Clear, Urine pH 6.0, Ur Specific Jefferson 1.015, Urine Protein 15 H, Urine Glucose [...] IBD SGI. Charges/Coding Visit Charges Inpatient E&M: 59820 Init Hosp L3 03/16/23 1650 <Electronically signed by Ravinder Friend > Cosigner Signature (if applicable): CC: Dr. Biju Lobo DO~ Signed [facility] Work Phone: 1(750) 504-431601-27-2024 History and physical note Author Delfin Russell [facility] March 16, 2023 2:54pm Note Date/Time March 16, 2023 1 :49pm [facility] Medical Records Department [address] [place] [address] H&P Exam - Hospitalist 03/16/23 1347 MR#: [id number] Acct: [id number] Name: FREDDIE COLE Rep #:[id number] : 1960 62 From: Delfin Dyer PCP: Dr. Biju Lobo DO Status:ADM IN Location: [facility] [id number] HPI - General General Date of Admission: [...] Labs and imaging discussed in assessment plan. [facility] Medical History Abnormal CT of the chest [...] (Auto) 70.6 H, Lymph % (Auto) 22.0, [place] % (Auto) 6.2, Eos % (Auto) 0.6, [...] 10:53 EST Reading Location ID and State: [facility] / [place] Tel , Service support , [...] cause, exact etiology unclear[facility] fluid 1 L [...] and cortical renal cyst. Discussed with the tire technician Dr. Beauchamp. Consult requested. Possible differentials were [...] history of GERD. He was referred to [facility] tertiary care outpatient. EGD on 11/23/2020 shows [...] or advanced directive. His is power of personal injury attorney for health. After discussion of benefits/risks procedures involved with full code, DNR CC arrest and DNR CC, the patient opted for full code. Patient does want artificial life support including intubation, tube feed, ventilator and/chest compression, central venous catheter, vasopressor and DC shock if needed Total time spent in qmwm-jf-amxc encounter in discussion of advanced directive 17 minutes. Laboratory Results 03/16/23 10:30: WBC 6.6, RBC 4.76, Hgb 14.6, Hct 43.9, MCV 92.2, MCH 30.7, MCHC 33.3, RDW Std Deviation 44.6 H, RDW Coeff of Nick 13.2, Plt Count 158, MPV 11.5, Immature Gran % (Auto) 0.300, Neut % (Auto) 70.6 H, Lymph % (Auto) 22.0, [place] % (Auto) 6.2, Eos % (Auto) 0.6, [...] lobe atelectasis. Charges/Coding Visit Charges Inpatient E&M: 38293 Init Hosp L3 Procedures Hospitalists Procedures: 89161 Advncd Care Plan 30 Min 03/16/23 1351 <Electronically signed by Delfin Russell MD> Cosigner Signature (if applicable): CC: Dr. Biju Lobo DO; Dr. Delfin Russell MD~ Signed [facility] Work Phone: [phone]) 238-685008-08-2023 History of Present illness Narrative* 09/25/2022: Office [...] of 62 satting 96% on room air. TP-Vegjihvrsy-Jizrmv [address] [place] Work Phone: [phone] 298-484507-14-2023 Procedure [facility] 08-24-2022 Procedure [facility]04-03-2023 Procedure note [facility]02-07-2023 History of Present illness Narrative* 03/27/2022: Office [...] room air. His weight is 223 pounds. JU-Oloqzgjfec-Svtujw [address] [place] Work Phone: [phone] History of Present illness NarrativePatient is here for yearly f/u. Most recent PSA was 0.42 on 03/12. . Prior PSA waS 0.37 on 01/08. Chronic BPH sx are mild and stable. Some urgency and frequency. Denies dysuria. Denies hematuria. Nocturia x3-4. He is taking Flomax. He has failed Gemtesa and Myrbetriq in the past. ED is not an issue.He is taking Isosorbide. SH-Atsorxt-Anzusqv Work Phone: [phone]) [phone] History of Present illness Narrative* 61 year old male with PMH of asthma (positive methacholine), laryngeal spasm, former tobacco use, NSTEMI s/p RCA stent (2021) who presents to pulmonary clinic after a recent hospitalization for pneumonia. * Patient presented to the [facility] on 01/24 and was told that [...] pack per day, social etoh, no illicits. 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 His weight is 223 pounds. PN-Bxzvruevmw-Opnmkw [address] [place] Work Phone: [phone] 475-454809-27-2022 History of Present illness Narrative* 11/14/2021: Office [...] room air. His weight is 223 pounds. [facility] Work Phone: [phone]) 178-243408-24-2022 History of Present illness Narrative* 10/11/2021: Mr [...] started on atorvastatin 80mg following his cath). DM-Wzviietkod-Emqoqg [address] [place] Work Phone: [phone] 574-571207-26-2022 History of Present illness Narrative* 09/12/2021: Mr [...] started on atorvastatin 80mg following his cath). 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 It didn't occur [...] He has gone to the ER in [place] a few times. He states that sometimes [...] He saw ENT (Dr. Bobby Chavez) in [place] and had a rhinoscopy and didn't recall any abnormal findings. Was referred to a charge poster but never had an appointment scheduled. 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 * Pertinent Allergy/Immunology family history: * No family history of angioedema * No family of asthma, allergies * Grave's disease in family * Mother had breathing issues but not diagnosed as asthma to their knowledge. Also has Parkinson's. US-Xclitwitps-Xnuvz 204 [place] Work Phone: [phone] History of Present illness Narrative* This is [...] last month. He has been working with [employer] on respiratory retraining. * Recall: 03/07/2021 FREDDIE [...] drug use. * FHx: reviewed. Includes: Emphysema SE-Gaprqqthqinufh-Hlcyowoa Work Phone: [phone] 291-373501-18-2022 History of Present illness Narrative* This is [...] last month. He has been working with [employer] on respiratory retraining. * Recall: 03/07/2021 FREDDIE [...] drug use. * FHx: reviewed. Includes: Emphysema [facility] Work Phone: [phone] History of Present illness Narrative* FREDDIE COLE [...] drug use. * FHx: reviewed. Includes: Emphysema SS-Tgxasrvevavzrk-Onmkfkb Voice Work Phone: [phone]) 441-505811-21-2021 History of Present illness NarrativePatient presents to [...] UTI's. Years ago.. ED is not an kwsuyNC-Gizkwzd-Ocuenyqy HC [address] [place] Work Phone: [phone] 333-148111-21-2021 History of Present illness NarrativePatient is here [...] of Prostate CA.. 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 Has seen a tire technician and had endoscopy. 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 Has seen a tire technician and had endoscopy. 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 Has seen a tire technician and had endoscopy. 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 It didn't occur [...] He has gone to the ER in [place] a few times. He states that sometimes [...] He saw ENT (Dr. Bobby Chavez) in [place] and had a rhinoscopy and didn't recall any abnormal findings. Was referred to a charge poster but never had an appointment scheduled. 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 * Pertinent Allergy/Immunology family history: * No family history of angioedema * No family of asthma, allergies * Grave's disease in family * Mother had breathing issues but not diagnosed as asthma to their knowledge. Also has Parkinson's. [facility] Work Phone: [phone] History of Present illness Narrative* Mr. 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 It didn't occur [...] He has gone to the ER in [place] a few times. He states that sometimes [...] He saw ENT (Dr. Bobby Chavez) in [place] and had a rhinoscopy and didn't recall any abnormal findings. Was referred to a charge poster but never had an appointment scheduled. 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 * Pertinent Allergy/Immunology family history: * No family history of angioedema * No family of asthma, allergies * Grave's disease in family * Mother had breathing issues but not diagnosed as asthma to their knowledge. Also has Parkinson's. [facility] Work Phone: [phone] History of Present illness Narrative* Mr. 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 It didn't occur [...] He has gone to the ER in [place] a few times. He states that sometimes [...] He saw ENT (Dr. Bobby Chavez) in [place] and had a rhinoscopy and didn't recall any abnormal findings. Was referred to a charge poster but never had an appointment scheduled. He [...] asthma to their knowledge. Also has Parkinson's. SG-Wzwebinrbx-Ncaos 204 DO Work Phone: Consult note Author Estevan Haywood [facility] March 19, 2023 10:39am Note Date/Time March 19, 2023 1 0:39am [facility] Medical Records Department [address] [place] [address] Counseling Note - Pharmacy 03/19/23 1039 MR#: [id number] Acct: [id number] Name: FREDDIE COLE Rep #:[id number] : 1960 62 From: Estevan Haywood PCP: Dr. Biju Lobo, DO Status:ADM IN Y Location: [facility] [id number] Pharmacy MA Med Reconciliation Pharmacy Service has [...] Signature (if applicable): Date CC: ~ Signed [facility] Work Phone: Discharge summary Author Harrison Spears [facility] March 19, 2023 10:27am Note Date/Time March 19, 2023 1 0:25am [facility] Medical Records Department [address] [place] [address] Discharge Summary 03/19/23 1023 MR#: [id number] Acct: [id number] Name: FREDDIE COLE Rep #:[id number] : 1960 62 From: Harrison Spears DO PCP: Dr. Biju Lobo DO Status:ADM IN [facility] Prov[facility] Date of Admission: 03/16/23 Primary Care Physician: Dr. Biju Lobo, DO Consultations 03/16/23 15:32 Consult: Gastroenterology Routine Consulting Provider: [facility] Reason for Consult: diarrhea/abd cramps for [...] cortical renal cyst. * discussed with the tire technician Dr. Beauchamp. Consult requested. * Stool studies: [...] % (Auto) 67.0, Lymph % (Auto) 22.9, [place] % (Auto) 7.6, Eos % (Auto) 2.0, [...] [Primary Care Provider] - Within 2 Weeks [facility] [Provider Group] - Within 2 Weeks Disposition Disposition (needs filled in before D/C Order can be placed): Home, Self Care Charges/Coding Visit Charges Inpatient E&M: 33184 Disch Hosp >30min 03/19/23 1027 <Electronically signed by Harrison Spears DO> Cosigner Signature (if applicable): CC: Dr. Harrison Spears DO; Dr. Biju Lobo DO~ Signed [facility] Work Phone: Evaluation note* Skin: Warm, Rt [...] developed, awake/alert/oriented x3, no distress and cooperative [facility] assessment information available [facility] Work Phone: Evaluation note* Diagnosis Onset Date Resolution Status Fatigue acute Hypersomnia acute Mild cognitive impairment [place] Parkinson's disease acute [facility] Work Phone: Evaluation note* Diagnosis Onset Date Resolution Status Fatigue acute Hypersomnia acute Mild cognitive impairment [place] Parkinson's disease acute Asthma acute Observed sleep apnea acute Chronic diastolic (congestive) heart failure [facility] Work Phone: Evaluation note* Diagnosis Onset Date Resolution Status Fatigue acute Hypersomnia acute Mild cognitive impairment [place] Parkinson's disease chronic Asthma acute Observed sleep apnea acute Chronic diastolic (congestive) heart failure chronic MARYJO (obstructive sleep apnea) acute Smoking greater than 30 pack years chronic Carotid artery, internal, occlusion acute Parkinson's disease [facility] Work Phone: Evaluation note* Diagnosis Onset Date Resolution Status Asthma acute Observed sleep apnea acute Chronic diastolic (congestive) heart failure chronic MARYJO (obstructive sleep apnea) acute Smoking greater than 30 pack years chronic Carotid artery, internal, occlusion acute Parkinson's disease [facility] Work Phone: Evaluation note* Diagnosis Onset Date Resolution Status MARYJO (obstructive sleep apnea) acute Smoking greater than 30 pack years chronic Carotid artery, internal, occlusion acute Parkinson's disease chronic Asthma acute Asthma acute Observed sleep apnea acute Chronic diastolic (congestive) heart failure chronic [facility] Work Phone: Evaluation note* Diagnosis Onset Date Resolution Status Asthma acute Asthma acute Observed sleep apnea acute Chronic diastolic (congestive) heart failure chronic Carotid artery, internal, occlusion acute [facility] Work Phone: Evaluation note* Diagnosis Onset Date Resolution Status Asthma chronic Observed sleep apnea acute Asthma chronic Chronic diastolic (congestive) heart failure chronic Carotid artery, internal, occlusion acute Oral thrush acute Asthma chronic Acute hypoxemic respiratory failure acute CAD (coronary artery disease) acute Diarrhea acute Orthostatic hypotension acut e Pneumonia acute Asthma chronic Chronic diastolic (congestive) heart failure [facility] Work Phone: Evaluation note* Diagnosis Onset Date Resolution Status Observed sleep apnea acute Asthma chronic Chronic diastolic (congestive) heart failure chronic Carotid artery, internal, occlusion acute Oral thrush acute Asthma chronic Acute hypoxemic respiratory failure acute CAD (coronary artery disease) acute Diarrhea acute Orthostatic hypotension acut e Pneumonia acute Asthma chronic Chronic diastolic (congestive) heart failure [facility] Work Phone: Evaluation note* Diagnosis Onset Date Resolution Status Observed sleep apnea acute Carotid artery, internal, occlusion acute Oral thrush acute Diarrhea resolved Orthostatic hypotension reso lved [facility] Work Phone: Evaluation note* Diagnosis Onset Date Resolution Status Carotid artery, internal, occlusion acute Oral thrush acute Diarrhea resolved Orthostatic hypotension reso lved [facility] Work Phone: Evaluation note* Diagnosis Onset Date Resolution Status Carotid artery, internal, occlusion acute Asthma acute Oral thrush acute MARYJO (obstructive sleep apnea) chronic Asthma acute Diarrhea resolved Orthostatic hypotension reso lved Asthma acute Cough acute Dyspnea acute Moist mucous membranes of ear, nose, and throat acute MARYJO (obstructive sleep apnea) [facility] Work Phone: Evaluation note* Diagnosis Benign prostatic hyperplasia with urinary obstruction and other lower urinary tract symptoms- Primary Nocturia Erectile disorder documented in this encounter [facility] Work Phone: Evaluation note* Diagnosis Onset Date [...] on exertion chronic 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, 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 Vocal cord dysfunction acute Asthma chronic Diastolic dysfunction chroni c Hypoxia chronic MARYJO (obstructive sleep apnea) chronic Shortness of breath on exertion chronic [facility] Work Phone: Evaluation note* Diagnosis 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 Stridor Dyspnea on exertion Other dyspnea and respiratory abnormality [facility] Diagnosis 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 dependence Tracheostomy status Postoperative pain Other acute postoperative pain [facility] Diagnosis 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 [facility] Diagnosis 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 [facility] Diagnosis Benign prostatic hyperplasia with urinary obstruction and other lower urinary tract symptoms Nocturia Erectile disorder Urinary incontinence, unspecified type Recurrent UTI Urinary tract infection, site not specified documented in this encounter [facility] Work Phone: Evaluation note* Diagnosis 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 May benefit from GI referral.VB-Xjlwzxepo-Wxnknjo 4200 Work Phone: Hospital Discharge instructions* Activity:activity as tolerated. May shower. * Additional Orders:Additional Instructions: Mr. Coel,It was a pleasure caring for you. You [...] seeing for your laryngealspasm. Take care, [facility] Medicine Team1. DAPT with aspirin and Plavix [...] Up Appointment 1:Physician/Dept/Service: Dr. Biju Lobo [facility] F/U [facility] to Schedule in: 1 week, Office to call patient directly to schedule appointmentLocation: [facility] [address] [place], [place] [address]Vbajz Number: [phone]: Please arrive 10-15 minutes early, wear a mask prior to entering the building, bring discharge summary, bring photo ID, current list of medications & dosages, insurance cards and any copay that may apply. If unable to keep this appointment, please call to cancel at least 24 hrs prior to appointment. * Follow Up Appointment 2:Physician/Dept/Service: Jayne Godinez AIR SAMPLER - CardiologyScheduled Date/Time: 23-Jun-2021 14:30Location: [place] [address] [facility] [address], [place], [place] [address]Bysas Number: [phone]: Please wear a mask when entering the [...] in the next few days. Please call [phone] ( ) if you do not hear back by then to inquire about appointment. Please arrive 15 minutes early and bring photo ID, insurance card, and medication list. If unable to attend appointment, please call to cancel within [address] 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 [facility] Work Phone: Hospital Discharge instructionsAmbulatory Orders* Phase II, Outpatient Pulmonary Rehab Location: None Selected [facility] Work Phone: Reason for referral (narrative)No reason for referral information availableWMagruder Memorial Hospital Work Phone: Chief Complaint Patient here [...] TISSUE NECK W/CONTRAST MATERIAL Hemant Galvan MD [address] [place] [address] [address] [place] [address] Referral ID Status Reason Start Date Expiration Date V isits Requested Visits Authorized [id number] New Request 07/10/2023 08/03/2024 1 1 Specialty Diagnoses / Procedures Referred By Eb anderson Referred To Contact Social Work Diagnoses Tracheostomy dependence Hemant Galvan MD [address] [facility] [address] [place] [address] Referral ID Status Reason Start Date Expiration Date V isits Requested Visits Authorized [id number] New Request 09/06/2023 09/30/2024 1 1 Specialty Diagnoses / Procedures Referred By Contac t Referred To Contact Procedures PLATELET MONITORING PER PROTOCOL Hemant Galvan MD [address] [place] [phone] Referral ID Status Reason Start Date Expiration Date V isits Requested Visits Authorized [id number] New Request 09/02/2023 09/26/2024 1 1 Specialty Diagnoses / Procedures Referred By Contac t Referred To Contact Procedures DVT/VTE RISK ASSESSMENT Hemant Galvan MD [address] [place] [phone] Referral ID Status Reason Start Date Expiration Date V isits Requested Visits Authorized [id number] New Request 09/02/2023 09/26/2024 1 1 Specialty Diagnoses / Procedures Referred By Contac t Referred To Contact [address] [place] [address] Referral ID Status Reason Start Date Expiration Date Visits Re quested Visits Authorized Specialty Diagnoses / Procedures Referred By Contac t Referred To Contact Procedures NO MECHANICAL DVT PROPHYLAXIS Hemant Galvan MD [address] [place] [phone] Referral ID Status Reason Start Date Expiration Date V isits Requested Visits Authorized [id number] New Request 09/02/2023 09/26/2024 1 1 Specialty Diagnoses / Procedures Referred By Contac t Referred To Contact Procedures LOW RISK - NO PHARMACOLOGICAL DVT PROPHYLAXIS Hemant Galvan MD [address] [place] [phone] Referral ID Status Reason Start Date Expiration Date V isits Requested Visits Authorized [id number] New Request 09/02/2023 09/26/2024 1 1 Referral ID Status Reason Start Date Expiration Date V isits Requested Visits Authorized [id number] New Request 09/02/2023 09/26/2024 1 1 Chief [...] Asthma-COPD overlap syndrome May 27, 2024 1:45pm MARYOJ (obstructive sleep apnea) May 27, 2024 1:45pm [...] Will Yes January 13 7:03pm Power of Physical Science Technician Yes January 13, 2021 7:03pm Advance Directive Response Recorded Date/ Time Living Will Yes January 24 9:09am Power of Physical Science Technician Yes January 24, 2022 9:09am Name of Medical Power of Physical Science Technician KIKE COLE January 24, 2022 9:09am Advance Directive Response Recorded Date/ Time Living Will Yes January 24 10:09am Power of Physical Science Technician Yes January 24, 2022 10:09am Name of Medical Power of Physical Science Technician KIKE COLE January 24, 2022 10:09am Advance Directive Response Recorded Date/ Time Living Will Yes January 24 10:09am Power of Physical Science Technician Yes January 24, 2022 10:09am Advance Directive Response Recorded Date/ Time Living Will Yes January 24 9:09am Power of Physical Science Technician Yes January 24, 2022 9:09am Advance Directive Response Recorded Date/ Time Living Will No March 16 10:03am Power of Physical Science Technician No March 16, 2023 10:03am Advance Directive Response Recorded Date/ Time Living Will No March 16 3:20pm Power of Physical Science Technician No March 16, 2023 3:20pm Advance Directive Response Recorded Date/ Time Name of Medical Power of Physical Science Technician spouse May 03, 2023 10:19am Living Will Yes May 03, 2023 10:19am Power of Physical Science Technician Yes May 02 10:19am Date Activated Date Inactivated Comments 09/02/2023 1:35 PM Date Activated Date Inactivated Comments 09/02/2023 1:35 PM Advance Directive Response Recorded Date/ Time Living Will No October 27, 2 024 3:19pm Power of Physical Science Technician No October 28, 2023 3:19pm Living Will Yes October 29, 2023 9:10pm Power of Physical Science Technician Yes October 9:10pm Living Will Yes March 08 3:50pm Power of Physical Science Technician Yes March 08, 2024 3:50pm Name of Medical Power of Physical Science Technician Machelle Cole March 08, 2024 3:50pm Advance Directive Response Recorded Date/ Time Living Will No October 27, 2 024 4:19pm Do you have a Healthcare Pow er of Physical Science Technician? No October 28, 2023 4:19pm Living Will Yes October 29, 2023 10:10pm Do you have a Healthcare Pow er of Physical Science Technician? Yes October 29, 2023 10:10pm Living Will Yes March 08 4:50pm Do you have a Healthcare Pow er of Physical Science Technician? Yes March 08, 2024 4:50pm Name of Medical Power of Physical Science Technician Machelle Cole March 08, 2024 4:50pm Advance Directive Response Recorded Date/ Time Living Will No October 27, 024 4:19pm Do you have a Healthcare Power of Physical Science Technician? No October 28, 2023 4:19pm Living Will Yes October 29, 2023 10:10pm Do you have a Healthcare Power of Physical Science Technician? Yes October 29, 2023 10:10pm Advance Directive Response Recorded Date/ Time Living Will No October 27, 024 4:19pm Do you have a Healthcare Power of Physical Science Technician? No October 28, 2023 4:19pm Advance Directive Response Recorded Date/ Time Advance Directives on File No September 07, 2024 2:12pm Living Will Yes September 07, 2024 2:32pm Do you have a Healthcare Power of Physical Science Technician? Yes September 07, 2024 2:32pm Summary Purpose [...] section and content) DATE CREATED AUTHOR 10/28/2021 [facility] DATE CREATED AUTHOR AUTHOR'S ORGANIZ ATION 12/13/2021 [facility] DATE CREATED AUTHOR AUTHOR'S ORGANIZ ATION 09/26/2022 [facility] DATE CREATED AUTHOR AUTHOR'S ORGANIZ ATION 03/29/2023 [facility] DATE CREATED AUTHOR AUTHOR'S ORGANIZ ATION 03/31/2023 [facility] DATE CREATED AUTHOR AUTHOR'S ORGANIZ ATION 05/30/2023 [facility] DATE CREATED AUTHOR AUTHOR'S ORGANIZ ATION 03/10/2024 [facility] DATE CREATED AUTHOR AUTHOR'S ORGANIZ ATION 06/27/2024 [facility] DATE CREATED AUTHOR AUTHOR'S ORGANIZ ATION 09/15/2024 [facility] Care Teams (unrecognized sec [...] Provider, Referrin g Provider Active Karen Lora SUPERVISOR PYROTECHNIC LOADING, SUPERVISOR PYROTECHNIC LOADING-C Attending Provider Active Team Status: Inactive Member Role Status Dates Dr. Biju Lobo DO Primary Care Provider Active Karen Lora SUPERVISOR PYROTECHNIC LOADING, SUPERVISOR PYROTECHNIC LOADING-C Attending Provider, Referrin g Provider Active Team Status: Inactive Member Role Status Dates Dr. Biju Lobo , DO Primary Care Provider Active Karen Lora SUPERVISOR PYROTECHNIC LOADING, SUPERVISOR PYROTECHNIC LOADING-C Attending Provider Active Team Status: Active Member [...] Dr. iBju Lobo , DO Primary Care Provider Active Dr. Jayson Miramontes , DO Attending Provider, Emergency Provider Active Team Status: Inactive Member Role Status Dates Dr. Biju Lobo , DO Primary Care Provider Active Dr. Rj Trammell II, MD Attending Provider Active Team Status: Active Member Role Status Dates Dr. Biju Lobo , DO Primary Care Provider Active Karen Lora SUPERVISOR PYROTECHNIC LOADING, SUPERVISOR PYROTECHNIC LOADING-C Attending Provider, Referrin g Provider Active Junior Financial Analyst Relationship Specialty Start Date End Date Biju Lobo DO PCP - General 01/25/21 Biju Lobo DO [address] [place] [address] PCP - MMO ACO PCP 02/18/23 Team Status: Inactive Member Role Status Dates Dr. Biju Lobo , Primary Care Provider, Referrin g Provider Active Dr. Gilbert Hoang MD Attending Provider Active Team Status: Active Member Role Status Dates Dr. Biju Lobo DO Primary Care Provider Active Brenda Coker SUPERVISOR PYROTECHNIC LOADING, SUPERVISOR PYROTECHNIC LOADING-C Attending Provider, Referring P misa Active Dr. Gilbert Hoang MD Other Provider Active Team Status: Inactive Member Role Status Dates Dr. Biju Lobo DO Primary Care Provider Active Dr. Gilbert Hoang MD Attending Provider, Referring Pr ovider Active Junior Financial Analyst Relationship Specialty Start Date End Date Biju Lobo DO [address] [address] [place] [address] PCP - General Family Medicine 06/28/23 Rajinder Grijalva MD [address] [place], [place] [address] Referring Provider Otolaryngology 07/03/23 Junior Financial Analyst Relationship Specialty Start Date End Date Biju Lobo DO [address] [place] [address] [place] [phone] PCP - General Family Medicine 06/28/23 09/02/23 Gilbert Hoang MD [address] [place], [place] [phone] PCP - Referring 1 Cardiovascular Disease 09/03/23 Biju Lobo DO [address] [place] [address] [place] [phone] PCP - General Family Medicine 09/03/23 Rajinder Grijalva MD [address] [place], [place] [address] Referring Provider Otolaryngology 07/03/23 Junior Financial Analyst Relationship Specialty Start Date End Date Gilbert Hoang MD [address] [phone] PCP - Referring 1 Cardiovascular Disease 09/03/23 Biju Lobo DO [address] [place] [address] [place] [address] PCP - General Family Medicine 09/03/23 Rajinder Grijalva MD [address] [place], [place] [phone] Referring Provider Otolaryngology 07/03/23 Junior Financial Analyst Relationship Specialty Start Date End Date Gilbert Hoang MD [address] [facility] [address] [place], [place] [address] PCP - Referring 1 Cardiovascular Disease 09/03/23 Biju Lobo DO [address] [place] [address] [place] [phone] PCP - General Family Medicine 09/03/23 Rajinder Grijalva MD [address] [place], [place] [phone] Referring Provider Otolaryngology 07/03/23 Junior Financial Analyst Relationship Specialty Start Date End Date Biju Lobo DO PCP - General 01/25/21 Junior Financial Analyst Relationship Specialty Start Date End Date Gilbert Hoang MD [address] [facility] [address] [place], [place] [phone] PCP - Referring 1 Cardiovascular Disease 09/03/23 Biju Lobo DO [address] [place] [address] [place] [phone] PCP - General Family Medicine 09/03/23 Rajinder Grijalva MD [address] [place], [place] [phone] Referring Provider Otolaryngology 07/03/23 Team Status: Active [...] 15, 2024 End: April 15, 2024 MAHAMED Catsrejon Attending Provider Active Start: April 15, 2024 End: April 15, 2024 Junior Financial Analyst Relationship Specialty Start Date End Date Gilbert Hoang MD [address] [id number] PCP - Referring 1 Cardiovascular Disease 09/03/23 Biju Lobo DO [address] [address] PCP - General Family Medicine 09/03/23 Rajinder Grijalva MD [address] [place], [place] [phone] Referring Provider Otolaryngology 07/03/23 Team Status: Inactive [...] 2024 End: June 29, 2024 Tita Wick SUPERVISOR PYROTECHNIC LOADING-C Attending Provider Active Start: June 29, 2024 End: June 29, 2024 Tita Wick SUPERVISOR PYROTECHNIC LOADING-C Referring Provider Active Start: June 29, 2024 End: June 29, 2024 Team Status: Active Member Role Status Dates Dr. Biju Lobo DO Primary Care Provider Active Start: July 02, 2024 Tita Wick SUPERVISOR PYROTECHNIC LOADING-C Attending Provider Active Start: July 02, 2024 Tita Wick SUPERVISOR PYROTECHNIC LOADING-C Referring Provider Active Start: July 02, 2024 Team Status: Inactive Member Role Status Dates Dr. Biju Lobo DO Primary Care Provider Active Start: July 02, 2024 End: July 02, 2024 Tita Wick SUPERVISOR PYROTECHNIC LOADING-C Attending Provider Active Start: July 02, 2024 End: July 02, 2024 Tita Wick SUPERVISOR PYROTECHNIC LOADING-C Referring Provider Active Start: July 02, 2024 End: July 02, 2024 Team Status: Active Member Role Status Dates Dr. Biju Lobo DO Primary Care Provider Active Start: July 03, 2024 Tita Wick SUPERVISOR PYROTECHNIC LOADING-C Referring Provider Active Start: July 03, 2024 Tita Wick SUPERVISOR PYROTECHNIC LOADING-C Other Provider Active St art: July 03, [...] PATIENT W/ SCOPE Biju Lobo DO [address] [facility] [address] [address] Phone: tel: fax: Hemant Galvan MD [address] [facility] [address] [place] [address] Phone: tel: fax: Referral ID Status Reason Start Date Expiration Date V isits Requested Visits Authorized [id number] New Request 06/24/2024 07/19/2025 1 1 Reason Comments Yearly w/ PSA Reason Comments Breathing Problem Specialty Diagnoses / Procedures Referred By Contac t Referred To Contact Voice & Swallowing Diagnoses Bilateral vocal cord paralysis Stridor Dysphonia Rajinder Grijalva MD [address] [place] [address] [facility] [address] [place] [address] Referral ID Status Reason Start Date Expiration Date V isits Requested Visits Authorized [id number] New Request 07/02/2023 07/26/2024 1 1 Specialty Diagnoses / Procedures Referred By Eb anderson Referred To Contact Diagnoses 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] Procedures [place] TRACHEOSTOMY PLANNED SEPARATE PROCEDURE TRACHEOSTOMY Hemant Galvan MD [address] [facility] [address] [place] [address] [facility] [address] [place] [address] Referral ID Status Reason Start Date Expiration Date Visits Re quested Visits Authorized [id number] 1 1 Reason Comments Post Op Visit [...] BE BASED ON THE PRIMARY CLINICAL RECORDS. [employer] provides no warranty or guarantee of the accuracy or completeness of information in this document.
[2024-09-16 00:26] LABS: Magnesium 2.0 mg/dL (1.5-2.2)
[2024-09-16] MEDS: 0.9% Normal Saline (1000mL) 1,000 ML 70 ML IV (00:45)
--- NOTE | 2024-09-16 05:55 | ECHOCS_ITS ---
Reason For Study : GENERAL WEAKNESS Procedure This was a 2D Doppler, Color Flow transthoracic echocardiogram. The study was technically difficult. Exam performed portable in patient room. Left Ventricle Normal LV size. Left ventricular systolic function is normal. The left ventricular ejection fraction is 55 %. Stage 1 diastolic dysfunction. No regional wall motion abnormalities noted. Right Ventricle Normal RV size. Normal systolic function. Atria Normal left atrium. Normal right atrium. Mitral Valve Normal mitral valve. Tricuspid Valve Normal tricuspid valve. Aortic Valve Normal aortic valve. Pulmonic Valve Normal pulmonic valve. Great Vessels Normal aortic root. Pericardium/Pleural No pericardial effusion. Medication Diluted definity 1ml given slow IV push to enhance endocardial definition. MMode/2D Measurements & Calculations LVIDd: 4.7 cm IVSd: 1.1 cm Ao root diam: 3.3 cm LVIDs: 3.3 cm LVPWd: 1.1 cm RVDd: 3.6 cm FS: 29.7 % LAV(MOD-bp): 35.1 ml LVAd ap4: 35.1 cm2 SV(MOD-sp4): 72.3 ml LAV(MOD-bp) Indexed: 16.7 ml/m2 LVLd ap4: 8.5 cm SI(MOD-sp4): 34.4 ml/m2 LAV(MOD-sp2): 32.9 ml EDV(MOD-sp4): 120.8 ml LAV(MOD-sp4): 36.0 ml EDV(sp4-el): 123.5 ml LVAs ap4: 20.7 cm2 LVLs ap4: 7.1 cm ESV(MOD-sp4): 48.5 ml ESV(sp4-el): 51.0 ml EF(MOD-sp4): 59.9 % EF(sp4-el): 58.7 % SV(sp4-el): 72.5 ml LA A4 area: 14.8 cm2 LA dimension(2D): 3.1 cm RA A4 area: 14.0 cm2 TAPSE: 2.1 cm Time Measurements MV dec time: 0.23 sec Doppler Measurements & Calculations MV E max pete: 92.9 cm/sec Lat Peak E' Pete: 12.1 cm/sec Med Peak E' Pete: 13.1 cm/sec MV A max pete: 98.5 cm/sec E/E' lat: 7.6 E/E' med: 7.1 MV E/A: 0.94 Ao V2 max: 144.2 cm/sec LV V1 max: 120.3 cm/sec PA V2 max: 110.5 cm/sec Ao max P.3 mmHg LV V1 max P.8 mmHg ECHO/Echo Complete W/ Contrast Interpretation Summary Normal LV size. Left ventricular systolic function is normal. The left ventricular ejection fraction is 55 %. Stage 1 diastolic dysfunction. Contrast injection was performed. Ordering Physician: Nikolai Freeman Referring Physician: BIJU LOBO Performed By: Ksenia Hamm RDCS
[2024-09-16 06:07] LABS: Hematocrit 41.8 % (40-54); Hemoglobin 13.6 g/dL (13.0-16.5); Immature Granulocytes Count 0.040 X10^3/uL (0.0-0.0); Mean Corp Hgb Conc 32.5 g/dL (32-36); Mean Corpuscular Volume 98.4 fL (80-94); Mean Platelet Vol. 11.9 fl (6.2-12.0); NRBC Flagged by Analyzer 0 % (0-5); Platelet Count 111 K/mm3 (150-450); RBC Distribution Width CV 13.3 % (11.6-14.6); RBC Distribution Width SD 48.2 fl (35.1-43.9); Red Blood Count 4.25 M/mm3 (4.6-6.2); White Blood Count 10.1 K/mm3 (4.4-11.0)
[2024-09-16 06:34] LABS: AST(SGOT) 28 U/L (<=37); Alanine Aminotransfer ALT/SGPT 16 U/L (<=46); Albumin, Serum 3.7 g/dL (3.4-4.8); Alkaline Phosphatase 64 U/L (40-129); Anion Gap 9 (5-15); BUN 18 mg/dL (4-19); BUN/Creat Ratio 15.8 RATIO (10-20); Calcium,Total 8.6 mg/dL (7.6-11.0); Carbon Dioxide 27.0 mmol/L (21.0-32.0); Chloride 103 mmol/L (98-108); Estimated Creatinine Clearance 73.65 ml/min (50-250); Globulin 2.9 g/dL (2.2-4.2); Glucose 100 mg/dL (70-99); Potassium 3.9 mmol/L (3.3-5.1)
--- NOTE | 2024-09-16 06:39 | PCM.HP.STD ---
HPI - General General Date of Admission: 09/15/24 Chief Complaint: Generalized Weakness and Fatigue. HPI Narrative FREDDIE DUMONT, is a 64 M who presents [facility] Medical History Transient hypotension Acute dyspnea Acute exacerbation of chronic obstructive pulmonary disease Fall Debility BPH (benign prostatic hyperplasia) GERD (gastroesophageal reflux disease) Dysphagia Vocal cord dysfunction (HFpEF) heart failure with preserved ejection fraction Carotid artery disease Dizziness Hypokalemia Hypoxia Asthma-COPD overlap syndrome Hyperlipidemia COPD (chronic obstructive pulmonary disease) Carotid artery stenosis Osteoarthritis of right hip Angioedema Diastolic dysfunction Throat clearing Moist mucous membranes of ear, nose, and throat Cough Oral thrush Carotid artery, internal, occlusion MARYJO (obstructive sleep apnea) Smoking greater than 30 pack years Chronic diastolic (congestive) heart failure Orthostatic hypotension Fatigue Hypersomnia Parkinson's disease Mild cognitive impairment Benign localized hyperplasia of prostate with urinary obstruction and lower urinary tract symptoms Weak urinary stream Urinary frequency Urge incontinence of urine Tobacco abuse counseling Tobacco abuse Shortness of breath on exertion Snoring Postoperative hypothyroidism Observed sleep apnea Nocturia Laryngeal spasm Hypertension Hypercholesterolemia Hoarseness of voice Elevated brain natriuretic peptide (BNP) level Elevated troponin level Fungal infection Change in voice CAD (coronary artery disease) Breathing difficult Bradycardia ACS (acute coronary syndrome) Asthma History of nuclear stress test Acute deep vein thrombosis of lower extremity Abnormal CT of the chest Dyspnea Wears glasses Alcohol use Arthritis DVT (deep venous thrombosis) Gastric reflux Smoker Cricopharyngeal dysphagia Parasomnia Bilateral hearing loss Spasm of vocal cords High cholesterol Hypothyroidism Home Medications ?Medication ?Instructions ?Recorded ?Last Taken ?Type levothyroxine 150 mcg tablet 150 mcg PO DAILY thyroid 01/13/21 09/07/23 History (Synthroid) aspirin 81 mg chewable tablet 81 mg PO DAILY heart health 01/24/22 09/07/23 History (Luis Alberto Chewable Low Dose Aspirin) tamsulosin 0.4 mg capsule 0.4 mg PO DAILY prostate 05/17/22 09/07/23 History Handicap placard #1 ea 10/01/22 Unknown Rx budesonide 1 mg/2 mL suspension 1 mg (2 mL) inhalation BID 10/17/23 Unknown Rx for nebulization breathing #120 mL nitrofurantoin 100 mg PO MOWEFR bladder 10/21/23 Unknown History monohydrate/macrocrystals 100 mg capsule furosemide 40 mg tablet (Lasix) 20 mg (1/2 x 40 mg) PO 1200 PRN 11/02/23 Unknown Rx Leg swelling 30 days #0 tabs clopidogrel 75 mg tablet 75 mg PO DAILY anit platelet #90 04/06/24 Unknown Rx tabs potassium chloride 20 mEq 20 meq PO DAILY supplement #90 tabs 04/07/24 Unknown Rx tablet,extended release rosuvastatin 5 mg tablet 5 mg PO DAILY cholesterol #90 tabs 04/10/24 Unknown Rx formoterol fumarate 20 mcg/2 mL 2 ml inhalation BID #120 mL 04/15/24 Unknown Rx solution for nebulization (Perforomist) nebulizer kits #1 ea 04/15/24 Unknown Rx revefenacin 175 mcg/3 mL solution 175 mcg (3 mL) inhalation QDAY #90 04/15/24 Unknown Rx for nebulization (Yupelri) mL ipratropium 0.5 mg-albuterol 3 mg 3 ml inhalation Q4H PRN PRN SOB 05/20/24 Unknown Rx (2.5 mg base)/3 mL nebulization &/OR WHEEZING #360 mL soln prednisone 10 mg tablet 10 mg PO QDAY #30 tabs 07/15/24 Unknown Rx atropine 1 % eye drops See Rx Instructions buccal DAILY 07/23/24 Unknown Rx secretions #15 mL carbidopa 25 mg-levodopa 100 mg 2 tab PO TID parkinsons #540 tabs 07/23/24 Unknown Rx tablet fludrocortisone 0.1 mg tablet 0.2 mg (2 x 0.1 mg) PO QAM #180 07/23/24 Unknown Rx tabs Motorized scooter #1 ea 09/10/24 Unknown Rx omeprazole 40 mg capsule,delayed 40 mg PO DAILY 09/15/24 Unknown History release ropinirole 1 mg tablet 0.5 mg PO TID 09/15/24 Unknown History Allergy/AdvReac Type Severity Reaction Status Date / Time vibegron (From [place]) Allergy Severe Rash Verified 09/15/24 17:11 Family History Father COPD (chronic obstructive pulmonary disease) Emphysema lung Myocardial infarction Mother Parkinsons disease Malignant melanoma Surgical History Status post tracheostomy 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 artery (~06/06/21) H/O cardiac catheterization (~06/06/21) Hx of arthroscopy of knee H/O knee surgery H/O thyroidectomy Social History household members: spouse Smoking Status: Former smoker Tobacco: How many years used: 45 second hand exposure: Yes alcohol intake: former substance use type: does not use caffeine: Yes (daily) Type: coffee Number of servings: 2 what type of physical activity do you participate in: walking seatbelt use: sometimes Vital Signs Vital Signs Vital Signs: 09/15/24 17:08 09/15/24 17:45 09/15/24 18:03 Temperature 99.7 F H Temperature Source Oral Pulse Rate 95 93 Respiratory Rate 16 24 H Respiratory Effort Respiratory Depth Respiratory Pattern Blood Pressure 132/84 H Blood Pressure Mean 100 Pulse Ox 94 Oxygen Delivery Method Trach Collar Room Air Fraction of Inspired Oxygen (FIO2) 09/15/24 18:29 09/15/24 19:10 09/15/24 20:00 Temperature 98.1 F 100.7 F H Temperature Source Oral Oral Pulse Rate 91 84 Respiratory Rate 27 H 18 Respiratory Effort Short of Breath Respiratory Depth Respiratory Pattern Blood Pressure 147/88 H 128/78 H Blood Pressure Mean 107 94 Pulse Ox 94 91 Oxygen Delivery Method Room Air Room Air Fraction of Inspired Oxygen (FIO2) 09/15/24 21:00 09/15/24 21:07 09/15/24 23:00 Temperature 100.9 F H 99.3 F H Temperature Source Oral Oral Pulse Rate 89 84 Respiratory Rate 21 H 24 H Respiratory Effort Respiratory Depth Respiratory Pattern Blood Pressure 119/72 107/70 Blood Pressure Mean 87 82 Pulse Ox 96 94 87 Oxygen Delivery Method Room Air Room Air Room Air Fraction of Inspired Oxygen (FIO2) 09/16/24 00:35 09/16/24 01:30 09/16/24 01:40 Temperature 98.8 F Temperature Source Oral Pulse Rate 81 86 Respiratory Rate 20 H 28 H Respiratory Effort Normal Respiratory Depth Normal Respiratory Pattern Normal Tachypnea Blood Pressure 110/78 Blood Pressure Mean 88 Pulse Ox 94 Oxygen Delivery Method Room Air Trach Collar Fraction of Inspired Oxygen (FIO2) 09/16/24 01:40 09/16/24 01:40 09/16/24 04:33 Temperature 98.2 F Temperature Source Oral Pulse Rate 83 Respiratory Rate 28 H 16 Respiratory Effort Short of Breath Respiratory Depth Shallow Respiratory Pattern Tachypnea Blood Pressure 108/80 Blood Pressure Mean 89 Pulse Ox 93 93 95 Oxygen Delivery Method Trach Collar Trach Collar Trach Collar Fraction of Inspired Oxygen (FIO2) Weight Weight: 208 lb 8.917 oz Body Mass Index (BMI) 30.8 Results Lab / Micro Data 09/16/24 05:47 09/16/24 05:47 Labs: Laboratory Results - last 24 hr 09/15/24 17:40: WBC 14.5 H, RBC 4.72, Hgb 15.0, Hct 46.5, MCV 98.5 H, MCH 31.8, MCHC 32.3, RDW Std Deviation 48.4 H, RDW Coeff of Nick 13.2, Plt Count 130 L, MPV 11.7, Immature Gran % (Auto) 0.500, Neut % (Auto) 83.0 H, Lymph % (Auto) 8.1 L, [place] % (Auto) 8.0, Eos % (Auto) 0.1, Baso % (Auto) 0.3, Absolute Neuts (auto) 12.1 H, Absolute Lymphs (auto) 1.18, Nucleated RBC % 0, PT 15.0 H, INR 1.2, APTT 28.5, Sodium Cancelled 09/15/24 17:40: Sodium 137, Potassium Cancelled 09/15/24 17:40: Potassium 4.1, Chloride Cancelled 09/15/24 17:40: Chloride 99, Carbon Dioxide Cancelled 09/15/24 17:40: Carbon Dioxide 24.4, Anion Gap Cancelled 09/15/24 17:40: Anion Gap 13, BUN Cancelled 09/15/24 17:40: BUN 22 H, Creatinine Cancelled 09/15/24 17:40: Creatinine 1.39 H, Estim Creat Clear Calc Cancelled 09/15/24 17:40: Estim Creat Clear Calc 59.40, Est GFR (MDRD) Non-Af Cancelled 09/15/24 17:40: Est GFR (MDRD) Non-Af 56 L, BUN/Creatinine Ratio Cancelled 09/15/24 17:40: BUN/Creatinine Ratio 16.1, Glucose Cancelled 09/15/24 17:40: Glucose 109 H, Calcium Cancelled 09/15/24 17:40: Calcium 9.3, Total Bilirubin Cancelled 09/15/24 17:40: Total Bilirubin 1.17, AST Cancelled 09/15/24 17:40: AST 34, ALT Cancelled 09/15/24 17:40: ALT 6, Alkaline Phosphatase Cancelled 09/15/24 17:40: Alkaline Phosphatase 72, Troponin T High Sens 47 H, NT pro BNP II 938 H 09/15/24 17:40: NT pro BNP II Cancelled, Total Protein Cancelled 09/15/24 17:40: Total Protein 7.4, Albumin Cancelled 09/15/24 17:40: Albumin 4.0, Globulin Cancelled 09/15/24 17:40: Globulin 3.4, Albumin/Globulin Ratio Cancelled 09/15/24 17:40: Albumin/Globulin Ratio 1.2, Lipase Cancelled 09/15/24 17:40: Lipase 9 L 09/15/24 17:41: Lactic Acid 1.1 09/15/24 19:00: Urine Color Yellow, Urine Clarity Sl. Cloudy, Urine pH 6.0, Ur Specific [place] 1.015, Urine Protein 30 H, Urine Glucose (UA) Normal, Urine Ketones 5 H, Urine Occult Blood 25 H, Urine Nitrite Positive H, Urine Bilirubin Negative, Urine Urobilinogen Normal, Ur Leukocyte Esterase 500 H, Urine RBC 0-5 SEEN, Urine WBC >100 SEEN, Ur Squamous Epith Cells 0-5 SEEN, Urine Bacteria 4+, Urine Mucus 0 SEEN 09/15/24 19:50: Troponin T Hi Sens 2 Hr 43 H 09/15/24 23:30: Magnesium 2.0, Troponin T Hi Sens 4Hr 43 H, TSH 0.602 09/16/24 05:47: WBC 10.1, RBC 4.25 L, Hgb 13.6, Hct 41.8, MCV 98.4 H, MCH 32.0, MCHC 32.5, RDW Std Deviation 48.2 H, RDW Coeff of Nick 13.3, Plt Count 111 L, MPV 11.9, Immature Gran % (Auto) 0.400, Neut % (Auto) 81.0 H, Lymph % (Auto) 9.8 L, [place] % (Auto) 7.8, Eos % (Auto) 0.7, Baso % (Auto) 0.3, Absolute Neuts (auto) 8.2 H, Absolute Lymphs (auto) 0.99, Nucleated RBC % 0, Sodium 139, Potassium 3.9, Chloride 103, Carbon Dioxide 27.0, Anion Gap 9, BUN 18, Creatinine 1.12, Estim Creat Clear Calc 73.65, Est GFR (MDRD) Non-Af 72, BUN/Creatinine Ratio 15.8, Glucose 100 H, Calcium 8.6, Phosphorus 3.0, Total Bilirubin 1.00, AST 28, ALT 16, Alkaline Phosphatase 64, Total Protein 6.5, Albumin 3.7, Globulin 2.9, Albumin/Globulin Ratio 1.3 Imaging Radiology Impression Brain CT 09/15/24 17:59 IMPRESSION: No acute intracranial abnormality. Reading Location: [facility] Chest X-Ray 09/15/24 18:20 IMPRESSION: Mild pulmonary vascular congestion. No focal consolidation. Reading Location: [facility] Hip/Pelvis X-Ray 09/15/24 18:20 IMPRESSION: 1. No acute fracture or dislocation. 2. Moderate-advanced bilateral hip osteoarthritis, more advanced on the left. Reading Location: [facility] Chest CT 09/15/24 19:12 IMPRESSION: No focal consolidations. Bibasilar subsegmental atelectasis. Minimal bibasilar bronchiectasis. Reading Location: [facility]
--- NOTE | 2024-09-16 07:55 | PCM.PN.HOSP ---
Reason for Visit Chief Complaint: Generalized Weakness and Fatigue. Subjective Subjective Patient states that overall he is feeling better today. Seems like the antibiotics are helping. Was complaining of a little bit of shortness of breath but was needing some suctioning and breathing treatment at the time of my arrival. Patient states he really did not have dysuria. Self caths. Objective Data Objective Data Vital Signs: Vital Signs Temp Pulse Resp BP Pulse Ox O2 Del Method O2 Flow Rate 98.2 F 92 20 H 108/80 98 Trach Collar 6 09/16/24 04:33 09/16/24 07:40 09/16/24 07:40 09/16/24 04:33 09/16/24 07:40 09/16/24 07:40 09/16/24 07:40 FiO2 28 09/16/24 07:40 Oxygen Flow Rate (L/min) 6 Oxygen Delivery Method Trach Collar Weight: 94.6 kg Body Mass Index (BMI) 30.8 Intake & Output: Intake and Output for Last 24 Hours 09/14/24 09/15/24 09/16/24 23:59 23:59 23:59 Intake Total 1050 / 1050 450 / 450 Output Total 1150 / 1150 Balance 1050 / 1050 -700 / -700 Lab / Micro Data 09/16/24 05:47 09/16/24 05:47 Labs: Laboratory Results - last 24 hr 09/15/24 17:40: WBC 14.5 H, RBC 4.72, Hgb 15.0, Hct 46.5, MCV 98.5 H, MCH 31.8, MCHC 32.3, RDW Std Deviation 48.4 H, RDW Coeff of Nick 13.2, Plt Count 130 L, MPV 11.7, Immature Gran % (Auto) 0.500, Neut % (Auto) 83.0 H, Lymph % (Auto) 8.1 L, [place] % (Auto) 8.0, Eos % (Auto) 0.1, Baso % (Auto) 0.3, Absolute Neuts (auto) 12.1 H, Absolute Lymphs (auto) 1.18, Nucleated RBC % 0, PT 15.0 H, INR 1.2, APTT 28.5, Sodium Cancelled 09/15/24 17:40: Sodium 137, Potassium Cancelled 09/15/24 17:40: Potassium 4.1, Chloride Cancelled 09/15/24 17:40: Chloride 99, Carbon Dioxide Cancelled 09/15/24 17:40: Carbon Dioxide 24.4, Anion Gap Cancelled 09/15/24 17:40: Anion Gap 13, BUN Cancelled 09/15/24 17:40: BUN 22 H, Creatinine Cancelled 09/15/24 17:40: Creatinine 1.39 H, Estim Creat Clear Calc Cancelled 09/15/24 17:40: Estim Creat Clear Calc 59.40, Est GFR (MDRD) Non-Af Cancelled 09/15/24 17:40: Est GFR (MDRD) Non-Af 56 L, BUN/Creatinine Ratio Cancelled 09/15/24 17:40: BUN/Creatinine Ratio 16.1, Glucose Cancelled 09/15/24 17:40: Glucose 109 H, Calcium Cancelled 09/15/24 17:40: Calcium 9.3, Total Bilirubin Cancelled 09/15/24 17:40: Total Bilirubin 1.17, AST Cancelled 09/15/24 17:40: AST 34, ALT Cancelled 09/15/24 17:40: ALT 6, Alkaline Phosphatase Cancelled 09/15/24 17:40: Alkaline Phosphatase 72, Troponin T High Sens 47 H, NT pro BNP II 938 H 09/15/24 17:40: NT pro BNP II Cancelled, Total Protein Cancelled 09/15/24 17:40: Total Protein 7.4, Albumin Cancelled 09/15/24 17:40: Albumin 4.0, Globulin Cancelled 09/15/24 17:40: Globulin 3.4, Albumin/Globulin Ratio Cancelled 09/15/24 17:40: Albumin/Globulin Ratio 1.2, Lipase Cancelled 09/15/24 17:40: Lipase 9 L 09/15/24 17:41: Lactic Acid 1.1 09/15/24 19:00: Urine Color Yellow, Urine Clarity Sl. Cloudy, Urine pH 6.0, Ur Specific [place] 1.015, Urine Protein 30 H, Urine Glucose (UA) Normal, Urine Ketones 5 H, Urine Occult Blood 25 H, Urine Nitrite Positive H, Urine Bilirubin Negative, Urine Urobilinogen Normal, Ur Leukocyte Esterase 500 H, Urine RBC 0-5 SEEN, Urine WBC >100 SEEN, Ur Squamous Epith Cells 0-5 SEEN, Urine Bacteria 4+, Urine Mucus 0 SEEN 09/15/24 19:50: Troponin T Hi Sens 2 Hr 43 H 09/15/24 23:30: Magnesium 2.0, Troponin T Hi Sens 4Hr 43 H, TSH 0.602 09/16/24 05:47: WBC 10.1, RBC 4.25 L, Hgb 13.6, Hct 41.8, MCV 98.4 H, MCH 32.0, MCHC 32.5, RDW Std Deviation 48.2 H, RDW Coeff of Nick 13.3, Plt Count 111 L, MPV 11.9, Immature Gran % (Auto) 0.400, Neut % (Auto) 81.0 H, Lymph % (Auto) 9.8 L, [place] % (Auto) 7.8, Eos % (Auto) 0.7, Baso % (Auto) 0.3, Absolute Neuts (auto) 8.2 H, Absolute Lymphs (auto) 0.99, Nucleated RBC % 0, Sodium 139, Potassium 3.9, Chloride 103, Carbon Dioxide 27.0, Anion Gap 9, BUN 18, Creatinine 1.12, Estim Creat Clear Calc 73.65, Est GFR (MDRD) Non-Af 72, BUN/Creatinine Ratio 15.8, Glucose 100 H, Calcium 8.6, Phosphorus 3.0, Total Bilirubin 1.00, AST 28, ALT 16, Alkaline Phosphatase 64, Total Protein 6.5, Albumin 3.7, Globulin 2.9, Albumin/Globulin Ratio 1.3 Radiography Diagnostic Testing: Radiology Impression Brain CT 09/15/24 17:59 IMPRESSION: No acute intracranial abnormality. Reading Location: [facility] Chest X-Ray 09/15/24 18:20 IMPRESSION: Mild pulmonary vascular congestion. No focal consolidation. Reading Location: [facility] Hip/Pelvis X-Ray 09/15/24 18:20 IMPRESSION: 1. No acute fracture or dislocation. 2. Moderate-advanced bilateral hip osteoarthritis, more advanced on the left. Reading Location: [facility] Chest CT 09/15/24 19:12 IMPRESSION: No focal consolidations. Bibasilar subsegmental atelectasis. Minimal bibasilar bronchiectasis. Reading Location: [facility] Physical Exam Const alert, oriented x3, no apparent distress and well nourished; Negative for average body habitus or healthy appearing Constitutional Narrative: Obese, upper middle-aged, white male sitting up in a chair at the bedside, appears older than stated age, appears comfortable and nontoxic, watching television, very cooperative HEENT head/scalp atraumatic and moist oral mucous membranes HEENT Narrative: Mallampati is 3-4, no thrush Head and Scalp: normocephalic Neck supple Neck Narrative: Neck is short and thick, tracheostomy tube in place, mild secretions noted Resp normal respiratory effort, no retractions, no use of accessory muscles and No clear to auscultation bilaterally Resp Narrative: Scattered upper airway wheeze Auscultation: wheezes Cardio regular rate, regular rhythm, S1 normal heart sound, S2 normal heart sound, no murmurs, no rub, no gallops and no clicks GI normal to inspection, nondistended, normoactive bowel sounds, soft to palpation, non-tender and non-distended GI Narrative: Large protuberant abdomen Extremity Extremity Narrative: Trace bilateral lower extremity edema that appears to be chronic, no cyanosis or clubbing Neuro oriented x3, moves all extremities and no focal motor deficits Speech: speech normal Psych affect normal Psych Narrative: Very pleasant, interacts appropriately Assessment & Plan Assessment/Plan (1) Generalized weakness: (2) Leukocytosis: (3) Elevated troponin: (4) Complicated UTI (urinary tract infection): PLAN: Plan Complicated UTI - UA c/w UTI - cx P - white count normalized with CTX so will continue - pt self caths - await cx and narrow to PO abx as appropriate - already on macrobid for chronic suppression Leukocytosis - resolved with abx - L shift trended down with abx as well - repeat in am Thrombocytopenia - acute - suspect 2/2 acute infection - repeat in am Elevated troponin - suspect demand ischemia 2/2 acute infection - ECHO without wall motion abn, EF 55%, stage 1 diastolic dysfunction - no further work-up MICHAEL -resolved Generalized weakness -PT/OT eval pending Carotid aa Stenosis -Mild <50% stenosis R extracranial ICA -continue risk factor modification -continue plavix L Hip Pain -known OA -xray unremarkable -PRN tylenol Parkinison's disease -Cont carbidopa-levodopa -cont Fludrocortisone -PT/OT -Outpt Neuro f/u VCD/cricopharyngeal dysphagia/H/O angioedema - has trach - stable CAD/Essential HTN/Hyperlipidemia/Chronic Diastolic HF - s/p RCA stent - Continue DAPT H/O DVT -remote Hypothyroidism - s/p thyroidectomy (1998) - cont levothyroxine COPD with remote h/o Tobacco abuse -continue home meds - ongoing cessation - no acute decompensation Obesity - BMI 30.8 - Recommend wgt loss - complicates treatment/prognosis/outcomes DVT prophylaxis - continue Lovenox Code Status -Full Code
[2024-09-16] MEDS: Potassium Chloride Oral Tablet 20 MEQ PO (10:38)
[2024-09-16] MEDS: Lactobacillis Acidophilus 1 CAP PO ×4 (10:39→21:03)
--- NOTE | 2024-09-16 15:13 | CASEMGMT ---
JAZIEL UMAÑA Assessment Face to Face with patient for initial transition planning/care coordination assessment. JAZIEL UMAÑA introduced self and role at [facility], pt voices understanding. Pt is A&Ox4 and is resting comfortably in the chair and is calm. Care providers, pharmacy, and demographics verified. Admitting dx: UTI, MICHAEL LACE Strata: 2 PCP: Cisco Dozier Specialists: [facility], [facility], [facility], David ([facility]) Preferred Pharmacy: [facility] Insurance: [facility] A/B, [place] Prescription Benefit: Yes LNOK: Luz (W) Living Arrangements: Pt lives with his in a 2 story home with a FFSU and 2 steps to enter the home ADLs/IADLs: Indep. PT is not recommending any additional therapy Transportation: Self, . Denies concerns DME: FWW, Cane, grab bars, sufficient trach supplies (Pt states that he cares for this himself mainly but that his also helps), Self cath supplies. Denies current concerns or needs HHC/SNF: Hx with [facility]. Hx @ [facility]. Pt is active with the [facility] Tobacco Hx: Noted that the pt has a hx of tobacco abuse. Pt states that he quit x 5 years ago and denies needs. Pt?s goal: Home Plan: Home with the continuation of rehab through the [facility]. Pt states that he has been going x3 days per week and plans to continue this as an OP. Pt states that he feels safe with this plan and denies any further questions or concerns at this time. Ashley Scott RN, CM
[2024-09-16] MEDS: Budesonide Respules 0.5 MG/2 ML AMPUL.NEB. 1 MG INHALATION (19:15)
[2024-09-17] VITALS (10 sets, daily range): BP systolic 107–165; BP diastolic 76–104; PULSE 74–92; RESP 16–24; TEMP 36.6–37.3; O2SAT 91–98; BMI 31.5
[2024-09-17 06:37] LABS: Hematocrit 41.8 % (40-54); Hemoglobin 13.6 g/dL (13.0-16.5); Immature Granulocytes Count 0.020 X10^3/uL (0.0-0.0); Mean Corp Hgb Conc 32.5 g/dL (32-36); Mean Corpuscular Volume 97.4 fL (80-94); Mean Platelet Vol. 11.9 fl (6.2-12.0); NRBC Flagged by Analyzer 0 % (0-5); Platelet Count 121 K/mm3 (150-450); RBC Distribution Width CV 13.2 % (11.6-14.6); RBC Distribution Width SD 47.7 fl (35.1-43.9); Red Blood Count 4.29 M/mm3 (4.6-6.2); White Blood Count 7.4 K/mm3 (4.4-11.0)
[2024-09-17 07:01] LABS: Anion Gap 9 (5-15); BUN 12 mg/dL (4-19); BUN/Creat Ratio 12.0 RATIO (10-20); Calcium,Total 8.7 mg/dL (7.6-11.0); Carbon Dioxide 28.1 mmol/L (21.0-32.0); Chloride 103 mmol/L (98-108); Estimated Creatinine Clearance 86.87 ml/min (50-250); Glucose 101 mg/dL (70-99); Potassium 4.3 mmol/L (3.3-5.1)
[2024-09-17] MEDS: Budesonide Respules 0.5 MG/2 ML AMPUL.NEB. 1 MG INHALATION ×2 (07:23→19:23)
[2024-09-17] MEDS: Lactobacillis Acidophilus 1 CAP PO ×4 (10:13→22:06)
[2024-09-17] MEDS: Potassium Chloride Oral Tablet 20 MEQ PO (10:14)
--- NOTE | 2024-09-17 16:54 | PCM.PN.HOSP ---
Reason for Visit Chief Complaint: Generalized Weakness and Fatigue. Subjective Subjective Patient states he is overall feeling much better today. Should be able to switch to oral antibiotics at discharge. States he is still peeing a little bit weak and feels like he needs a little bit more time before you go as he is fairly independent and his can help him and he still having trouble getting around a bit but certainly much better since he came in. Objective Data Objective Data Vital Signs: Vital Signs Temp Pulse Resp BP Pulse Ox O2 Del Method O2 Flow Rate 98.8 F 82 18 107/76 94 Room Air 6 09/17/24 15:28 09/17/24 15:28 09/17/24 15:28 09/17/24 15:28 09/17/24 15:28 09/17/24 15:28 09/16/24 07:40 FiO2 09/17/24 03:25 Oxygen Flow Rate (L/min) 6 Oxygen Delivery Method Room Air Weight: 96.8 kg Body Mass Index (BMI) 31.5 Intake & Output: Intake and Output for Last 24 Hours 09/15/24 09/16/24 09/17/24 23:59 23:59 23:59 Intake Total 1050 / 1050 2610 / 2810 1000 / 1000 Output Total 1500 / 1900 1300 / 1300 Balance 1050 / 1050 1110 / 910 -300 / -300 Lab / Micro Data 09/17/24 05:52 09/17/24 05:52 Labs: Laboratory Results - last 24 hr 09/17/24 05:52: WBC 7.4, RBC 4.29 L, Hgb 13.6, Hct 41.8, MCV 97.4 H, MCH 31.7, MCHC 32.5, RDW Std Deviation 47.7 H, RDW Coeff of Nick 13.2, Plt Count 121 L, MPV 11.9, Immature Gran % (Auto) 0.300, Neut % (Auto) 77.9 H, Lymph % (Auto) 12.3 L, [place] % (Auto) 8.0, Eos % (Auto) 1.2, Baso % (Auto) 0.3, Absolute Neuts (auto) 5.8, Absolute Lymphs (auto) 0.91, Nucleated RBC % 0, Sodium 139, Potassium 4.3, Chloride 103, Carbon Dioxide 28.1, Anion Gap 9, BUN 12, Creatinine 0.96, Estim Creat Clear Calc 86.87, Est GFR (MDRD) Non-Af 87, BUN/Creatinine Ratio 12.0, Glucose 101 H, Calcium 8.7, Phosphorus 3.0 Micro: Microbiology 09/15/24 19:00 Urine Catheter - Mayes Urine Culture - Final Klebsiella pneumoniae sp pneum Physical Exam Const alert, oriented x3, no apparent distress and well nourished; Negative for average body habitus or healthy appearing Constitutional Narrative: Obese, upper middle-aged, white male sitting up in a chair at the bedside, appears older than stated age, appears comfortable and nontoxic, watching television, very cooperative General Appearance: cooperative HEENT normocephalic, head/scalp atraumatic and moist oral mucous membranes HEENT Narrative: Mallampati 3-4, no thrush Neck Neck Narrative: Neck is short and thick, tracheostomy tube in place, mild secretions noted Resp normal respiratory effort, no retractions, no use of accessory muscles and No clear to auscultation bilaterally Resp Narrative: Continues with intermittent scattered upper airway wheeze Auscultation: wheezes; Negative for crackles or rhonchi Cardio regular rate, regular rhythm, S1 normal heart sound, S2 normal heart sound, no murmurs, no rub, no gallops and no clicks GI normal to inspection, nondistended, normoactive bowel sounds, soft to palpation and non-tender GI Narrative: Large protuberant abdomen Extremity Extremity Narrative: Trace bilateral lower extremity edema that appears to be chronic, no cyanosis or clubbing Neuro moves all extremities and no focal motor deficits Neuro Narrative: Resting tremor noted, mild bradykinesia, response times are appropriate but speech is slightly slowed Speech: Negative for speech normal Psych affect normal Psych Narrative: Very pleasant, interacts appropriately Assessment & Plan Assessment/Plan (1) Generalized weakness: (2) Leukocytosis: (3) Elevated troponin: (4) Complicated UTI (urinary tract infection): PLAN: Plan Complicated Klebsiella UTI secondary to intermittent self-catheterization - Culture shows fairly pansensitive Klebsiella should be able to go home on oral agents - pt self caths - already on macrobid for chronic suppression Thrombocytopenia - Stabilizing and trending up - Suspect related to acute infection Elevated troponin - suspect demand ischemia 2/2 acute infection - ECHO without wall motion abn, EF 55%, stage 1 diastolic dysfunction - no further work-up Generalized weakness - PT/OT following and patient doing fairly well - No therapy is recommended at discharge Carotid aa Stenosis -Mild <50% stenosis R extracranial ICA -continue risk factor modification -continue plavix L Hip Pain -known OA -xray unremarkable -PRN tylenol Parkinison's disease -Cont carbidopa-levodopa -cont Fludrocortisone -PT/OT -Outpt Neuro f/u VCD/cricopharyngeal dysphagia/H/O angioedema - has trach - stable CAD/Essential HTN/Hyperlipidemia/Chronic Diastolic HF - s/p RCA stent - Continue DAPT H/O DVT -remote Hypothyroidism - s/p thyroidectomy (1998) - cont levothyroxine COPD with remote h/o Tobacco abuse - continue home meds - ongoing cessation - no acute decompensation Obesity - BMI 31.5 - Recommend wgt loss - complicates treatment/prognosis/outcomes DVT prophylaxis - continue Lovenox Code Status -Full Code Charges/Coding Visit Charges Inpatient E&M: 47889 Subs Hosp L2
[2024-09-17] MEDS: 0.9% Saline Lock 10 ML Syringe IV (22:06)
[2024-09-18 03:00] VITALS: PULSE 77
[2024-09-18 03:29] VITALS: BP 153/103; PULSE 82; RESP 19; TEMP 36.8; O2SAT 94
[2024-09-18 04:04] VITALS: PULSE 80; RESP 20
[2024-09-18 04:54] VITALS: BMI 31.9
[2024-09-18] MEDS: Budesonide Respules 0.5 MG/2 ML AMPUL.NEB. 1 MG INHALATION (06:33)
[2024-09-18 06:34] VITALS: PULSE 89; RESP 20; O2SAT 99
--- NOTE | 2024-09-18 08:15 | PCM.DC.SUM ---
Providers Date of Admission: 09/15/24 Date of Discharge: 09/18/24 Primary Care Physician: Dr. Cisco Dozier DO Reason For Visit: UTI, MICHAEL, MILDLY ELEVATED TROPONIN AND GENERALIZED Diagnosis Discharge Diagnosis (1) Generalized weakness: Status: Acute Code(s): R53.1 - Weakness (2) Leukocytosis: Status: Acute Code(s): D72.829 - Elevated white blood cell count, unspecified (3) Elevated troponin: Status: Acute Code(s): R79.89 - Other specified abnormal findings of blood chemistry (4) Complicated UTI (urinary tract infection): Status: Acute Code(s): N39.0 - Urinary tract infection, site not specified Medications at Discharge Home Medications levothyroxine 150 mcg tablet (Synthroid) 150 mcg PO DAILY thyroid 01/13/21 aspirin 81 mg chewable tablet (Luis Alberto Chewable Low Dose Aspirin) 81 mg PO DAILY heart health 01/24/22 tamsulosin 0.4 mg capsule 0.4 mg PO DAILY prostate 05/17/22 Handicap placard #1 ea 10/01/22 budesonide 1 mg/2 mL suspension for nebulization 1 mg (2 mL) inhalation BID breathing #120 mL 10/17/23 nitrofurantoin monohydrate/macrocrystals 100 mg capsule 100 mg PO MOWEFR bladder 10/21/23 furosemide 40 mg tablet (Lasix) 20 mg (1/2 x 40 mg) PO 1200 PRN Leg swelling 30 days #0 tabs 11/02/23 clopidogrel 75 mg tablet 75 mg PO DAILY anit platelet #90 tabs 04/06/24 potassium chloride 20 mEq tablet,extended release 20 meq PO DAILY supplement #90 tabs 04/07/24 rosuvastatin 5 mg tablet 5 mg PO DAILY cholesterol #90 tabs 04/10/24 formoterol fumarate 20 mcg/2 mL solution for nebulization (Perforomist) 2 ml inhalation BID #120 mL 04/15/24 nebulizer kits #1 ea 04/15/24 revefenacin 175 mcg/3 mL solution for nebulization (Yupelri) 175 mcg (3 mL) inhalation QDAY #90 mL 04/15/24 ipratropium 0.5 mg-albuterol 3 mg (2.5 mg base)/3 mL nebulization soln 3 ml inhalation Q4H PRN PRN SOB &/OR WHEEZING #360 mL 05/20/24 prednisone 10 mg tablet 10 mg PO QDAY #30 tabs 07/15/24 atropine 1 % eye drops See Rx Instructions buccal DAILY secretions #15 mL 07/23/24 carbidopa 25 mg-levodopa 100 mg tablet 2 tab PO TID parkinsons #540 tabs 07/23/24 fludrocortisone 0.1 mg tablet 0.2 mg (2 x 0.1 mg) PO QAM #180 tabs 07/23/24 Motorized scooter #1 ea 09/10/24 omeprazole 40 mg capsule,delayed release 40 mg PO DAILY 09/15/24 ropinirole 1 mg tablet 0.5 mg PO TID 09/15/24 cefdinir 300 mg capsule 300 mg PO BID #14 caps 09/18/24 Hospital Course Procedures 2-D Echocardiogram, EKG and - (CT brain/chest x-ray/hip and pelvic x-ray/chest CT) Summary of Care Provided Minutes Spent on Discharge: 39 Hospital Course: Mr. Cole is a 64-year-old white male with a chronic tracheostomy to and history of Parkinson's disease with urinary retention resulting in intermittent who presented to the emergency department [facility] on 09/15/2024 with chief complaint of generalized weakness and fatigue. Patient does have a history of urinary tract infections after self-catheterization. Patient reported that he began having symptoms about a week prior to presentation with a gradual onset of fatigue and generalized weakness. He has been in cardiac rehab and had been doing well but left feeling more tired and fatigued as of recently. He reported on the day of presentation he was so tired he could hardly get out of bed. He also complained of some left hip pain. He has been self cathing up to 4 times a day at home and a Mayes catheter was replaced prior to presentation. He was on suppressive Bactrim and Flomax at baseline. Vital signs on presentation showed temperature of 99.7, heart rate 95, respiratory 16, blood pressure 132/84 and pulse ox was 94% on room air. Patient does have tracheostomy tube. CBC showed leukocytosis with a white count of 14.5 and a left shift. He has chronic thrombocytopenia which was stable. Electrolytes are normal but his BUN and creatinine was slightly elevated at 22 and 1.39. His UA was strongly suggestive of infection. His initial troponin was 43. EKG did not show any changes concerning for acute ischemia patient did not have any chest pain. He did indicate he was having some intermittent wheezing which was new recently. CT of the brain was unremarkable for any acute findings. Chest x-ray was unremarkable for any acute findings. Hip and pelvic x-rays were unremarkable for acute findings but did demonstrate moderate to advanced bilateral hip osteoarthritis left greater than right. CT of the chest showed no focal consolidations, bibasilar atelectasis and minimal bibasilar bronchiectasis. Given his markedly abnormal UA and elevated white count with marked fatigue and increased risk for falls and debility he was admitted to the hospital placed on IV antibiotics with ceftriaxone. His white count normalized within 24 hours and within 72 hours of admission he was feeling pretty much back to baseline. He felt his fatigue and generalized weakness had resolved and he was able to walk through the halls without significant difficulty. I did have nursing review self cathing with him as this is the second urinary tract infection he has had recently due to self cathing and this is a new procedure for him. Culture showed a Klebsiella pneumonia that was fairly pansensitive. Interestingly, he stated he is wheezing, which was reflected on his clinical exam, had markedly improved so I do suspect he may have had a bronchitis as well as his secretions markedly decreased and his wheezing resolved. I will go ahead and complete treatment for his urinary tract infection with Omnicef which also should cover his pulmonary issues. An echocardiogram was obtained due to his shortness of breath and showed an EF of 55% with stage I diastolic dysfunction and was otherwise unremarkable. Given the normal echocardiogram I do feel that his elevated troponin was likely related to subendocardial ischemia related to his infection and no further workup was pursued while he was hospitalized. He did not have any concomitant chest pain. He was sent home to complete a 10-day course for complicated urinary tract infection. No other medication changes were made in his hospital course. I do recommend he follow-up with his primary care physician within 1 week after discharge. 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 History of angioedema CAD Essential hypertension Hyperlipidemia Chronic diastolic heart failure History of DVT Hypothyroidism COPD Remote history of tobacco abuse Obesity Physical Exam Const alert, oriented x3, no apparent distress, no limitations and well nourished; Negative for average body habitus or healthy appearing Constitutional Narrative: Obese, upper middle-aged, white male sitting up in a chair at the bedside, appears older than stated age, appears comfortable and nontoxic, watching television, very cooperative at bedside General Appearance: cooperative, comfortable, well kempt and well developed Exam Limitations: no limitations Nutritional Appearance: obese HEENT normocephalic, head/scalp atraumatic, hearing grossly normal bilaterally and moist oral mucous membranes HEENT Narrative: No thrush, Mallampati 4 Eyes EOMs intact bilaterally Eyes Narrative: No scleral icterus Neck supple Neck Narrative: Neck is short and thick, tracheostomy tube in place, no significant secretions noted at this time Resp normal respiratory effort, no retractions, no use of accessory muscles and clear to auscultation bilaterally Resp Narrative: Lungs are clear Auscultation: Negative for crackles, rhonchi or wheezes Cardio regular rate, regular rhythm, S1 normal heart sound, S2 normal heart sound, no murmurs, no rub, no gallops and no clicks GI normal to inspection, nondistended, normoactive bowel sounds, soft to palpation and non-tender GI Narrative: Large protuberant abdomen Extremity Extremity Narrative: Trace bilateral lower extremity edema that appears to be chronic, no cyanosis or clubbing Skin no jaundice, no petechiae and no mottling Neuro oriented x3, moves all extremities and no focal motor deficits Neuro Narrative: Resting tremor noted, mild bradykinesia, response times are appropriate but speech is slightly slowed Speech: Negative for speech normal Psych affect normal Psych Narrative: Very pleasant, interacts appropriately Weight / BMI Weight Weight: 98.1 kg Body Mass Index (BMI) 31.9 ABG / Lab / Microbiology Data 09/17/24 05:52 09/17/24 05:52 Microbiology: Microbiology 09/15/24 18:10 Blood Culture (Wb) - Left Hand Blood Culture - Preliminary No growth in 48 hours. 09/15/24 17:41 Blood Culture (Wb) - Anticubital Left Blood Culture - Preliminary No growth in 48 hours. 09/15/24 19:00 Urine Catheter - Mayes Urine Culture - Final Klebsiella pneumoniae sp pneum D/C Instructions Discharge Activity: Return to Normal Activity DC O2, CPAP, BIPAP Needs Home O2 Discharge instructions: No Meaningful Use Info Meaningful Use Meaningful Use Diagnoses (Choose all that apply): None applicable Discharge Plan Admission Admit Date/Time: 09/15/24 23:30 Primary Reason for Your Visit: Generalized weakness and fatigue I am eating lunch Attending Provider: Danita Spaulding Primary Care Provider: Cisco Dozier Consulting Providers: Nikolai Freeman Instructions Patient Instructions: Self-Catheterization for Men, Self Catheterization, Men Dc, Catheter Insert Man Steps Discharge Orders/Prescriptions Prescriptions: New cefdinir 300 mg capsule 300 mg PO BID Qty: 14 0RF Continued tamsulosin 0.4 mg capsule 0.4 mg PO DAILY budesonide 1 mg/2 mL suspension for nebulization 1 mg inhalation BID Qty: 120 11RF formoterol fumarate [Perforomist] 20 mcg/2 mL solution for nebulization 2 ml inhalation BID Qty: 120 3RF Yupelri 175 mcg/3 mL solution for nebulization 175 mcg inhalation QDAY Qty: 90 3RF (DME) nebulizer kits See Rx Instructions .ROUTE .MEDSUPPLY Qty: 1 11RF Rx Instructions: As directed carbidopa-levodopa 25-100 mg tablet 2 tab PO TID Qty: 540 2RF fludrocortisone 0.1 mg tablet 0.2 mg PO QAM Qty: 180 1RF atropine 1 % drops See Rx Instructions buccal DAILY Qty: 15 6RF Rx Instructions: Take 1 to 2 drops buccally daily (DME) Motorized scooter See Rx Instructions .Route .MEDSUPPLY Qty: 1 0RF Rx Instructions: As directed prednisone 10 mg tablet 10 mg PO QDAY Qty: 30 0RF Rx Instructions: take 4 tabs for three days, then 3 tabs for three days, then 2 tabs for three days, then 1 tab for 3 days levothyroxine [Synthroid] 150 mcg tablet 150 mcg PO DAILY aspirin [Luis Alberto Chewable Aspirin] 81 mg tablet,chewable 81 mg PO DAILY Patient Comments: 1 tablet by mouth once a day furosemide [Lasix] 40 mg tablet 20 mg PO 1200 PRN (Reason: Leg swelling) 30 Days Qty: 0 0RF Rx Instructions: Hold for SBP less than 100 mmHg nitrofurantoin monohyd/m-cryst 100 mg capsule 100 mg PO MOWEFR ropinirole 1 mg tablet 0.5 mg PO TID omeprazole 40 mg capsule,delayed release(DR/EC) 40 mg PO DAILY (DME) Handicap placard See Rx Instructions .Route .MEDSUPPLY Qty: 1 0RF Rx Instructions: Expiration: 10/01/2025 clopidogrel 75 mg tablet 75 mg PO DAILY Qty: 90 3RF potassium chloride 20 mEq tablet extended release 20 meq PO DAILY Qty: 90 3RF rosuvastatin 5 mg tablet 5 mg PO DAILY Qty: 90 3RF ipratropium-albuterol 0.5 mg-3 mg(2.5 mg base)/3 mL solution for nebulization 3 ml inhalation Q4H PRN PRN (Reason: SOB &/OR WHEEZING) Qty: 360 11RF Referrals / Follow Up: Cisco Dozier DO [Primary Care Provider] - Within 1 Week Disposition Disposition (needs filled in before D/C Order can be placed): Home, Self Care Charges/Coding Visit Charges Inpatient E&M: 51168 Disch Hosp >30min
[2024-09-18 08:27] VITALS: BP 122/86; PULSE 84; RESP 18; TEMP 36.4; O2SAT 93
[2024-09-18] MEDS: Potassium Chloride Oral Tablet 20 MEQ PO (08:42)
[2024-09-18] MEDS: Lactobacillis Acidophilus 1 CAP PO ×2 (08:42→14:02)
[2024-09-18 13:38] VITALS: BP 153/99; PULSE 78; RESP 18; TEMP 36.8; O2SAT 98
--- NOTE | 2024-09-18 13:45 | CASEMGMT ---
Patient has order for discharge. RN CM in to discuss needs at discharge. Patient denies needs or help at discharge. Patient denies needs or help at discharge.
== END 2024-09-18 14:28 | disposition home or self-care (01) | DRG 698 ==
LOC: ED 23:03 → PCU 09-16 00:09
PROVIDERS: Admitting Provider Internal Medicine; Emergency Provider Emergency Medicine; PCP Family Medicine; Visit Provider Internal Medicine
DX: T83.511A Infection and inflammatory reaction due to indwelling urethral catheter, initial encounter (principal); A41.89 Other specified sepsis; I24.89 Other forms of acute ischemic heart disease; G90.3 Multi-system degeneration of the autonomic nervous system; I50.32 Chronic diastolic (congestive) heart failure; N30.00 Acute cystitis without hematuria; D69.6 Thrombocytopenia, unspecified; Z93.0 Tracheostomy status; I11.0 Hypertensive heart disease with heart failure; J44.9 Chronic obstructive pulmonary disease, unspecified; G20.A1 Parkinson's disease without dyskinesia, without mention of fluctuations; E03.9 Hypothyroidism, unspecified; Z68.30 Body mass index [BMI] 30.0-30.9, adult; G47.33 Obstructive sleep apnea (adult) (pediatric); I25.10 Atherosclerotic heart disease of native coronary artery without angina pectoris; M16.0 Bilateral primary osteoarthritis of hip; E78.5 Hyperlipidemia, unspecified; B96.1 Klebsiella pneumoniae [K. pneumoniae] as the cause of diseases classified elsewhere; R53.1 Weakness; Z86.16 Personal history of COVID-19; Z86.718 Personal history of other venous thrombosis and embolism; Z79.02 Long term (current) use of antithrombotics/antiplatelets; Z87.891 Personal history of nicotine dependence; Z95.5 Presence of coronary angioplasty implant and graft; N40.1 Benign prostatic hyperplasia with lower urinary tract symptoms; R33.8 Other retention of urine; Z79.52 Long term (current) use of systemic steroids; Z79.01 Long term (current) use of anticoagulants; Z79.890 Hormone replacement therapy; Z68.31 Body mass index [BMI] 31.0-31.9, adult; R53.81 Other malaise; E66.9 Obesity, unspecified; R13.13 Dysphagia, pharyngeal phase
CPT/HCPCS: 31720; 36415; 51702; 70450; 71046; 71250; 73503; 80048; 80053; 81001; 83605; 83690; 83735; 83880; 84100; 84443; 84484; 85025; 85610; 85730; 87040; 87077; 87086; 87088; 87186; 93005; 93306; 94640; 97116; 97150; 97162; 97165; 97530; 97802; 99252; 99284; Q9957; 94626; A4216; C8929; G0463

== ENCOUNTER 2024-09-18 09:48 | Outpatient (RCR) | payer MEDICARE, BC, SELFPAY ==
[2024-09-07 15:34] VITALS: BMI 29.9
--- NOTE | 2024-10-05 07:10 | PR.ITP_ITS ---
Exercise - Initial Assessment Visit Session Number:: 3 (Pt has attended 3 sessions. Pt was hospitalized for hip pain and a UTI and has not attended rehab since 09/14/24.) Physician Prescribed Exercise Modalities: SciFit Stepper, SciFit Pro-II Ergometer and SciFit Lateral Technician Test Systems Current METSs:: 3 Target HR:: 116 (92-116) Current RPD:: 2-3 Maximum Exercise HR:: 96 Resting Blood Pressure: 128/82 Maximum Exercise Blood Pressure: 128/88 Minimum SpO2 with exercise: 89 EKG Type: NSR to ST w/frequent PVC, one vent couple and one triplet. Nutrition/Wt Mgmt - Initial Visit Session Number:: 3 (Pt has attended 3 sessions. Pt was hospitalized for hip pain and a UTI and has not attended rehab since 09/14/24.) Weight Management Admit Height:: 5 ft 9 in Admit Weight:: 203 lb Admit BMI:: 29.9 Nutrition/Wt Mgmt - 30-Day Visit Date of Eval: 10/05/24 Session Number:: 3 (Pt has attended 3 sessions. Pt was hospitalized for hip pain and a UTI and has not attended rehab since 09/14/24.) Weight Management Height: 5 ft 9 in Weight:: 203 lb BMI: 29.9 Weight Goals Progress:: Not progressing (Pt has attended 3 sessions. Pt was hospitalized for hip pain and a UTI and has not attended rehab since 09/14/24.) Nutrition/Wt Mgmt - 60-Day Visit Session Number:: 3 (Pt has attended 3 sessions. Pt was hospitalized for hip pain and a UTI and has not attended rehab since 09/14/24.) Weight Management Height: 5 ft 9 in Weight:: 203 lb BMI: 29.9 Nutrition/Wt Mgmt - 90-Day Visit Session Number:: 3 (Pt has attended 3 sessions. Pt was hospitalized for hip pain and a UTI and has not attended rehab since 09/14/24.) Weight Management Height: 5 ft 9 in Weight:: 203 lb BMI: 29.9 Nutrition/Wt Mgmt - Final Visit Session Number:: 3 (Pt has attended 3 sessions. Pt was hospitalized for hip pain and a UTI and has not attended rehab since 09/14/24.) Weight Management Height: 5 ft 9 in Weight:: 203 lb BMI: 29.9 Psychosocial - Initial Assess Visit Session Number:: 3 (Pt has attended 3 sessions. Pt was hospitalized for hip pain and a UTI and has not attended rehab since 09/14/24.) Problems/Goals History of Emotional Disorders: None Psychosocial Goals: 1. Patient is free from overwhelming symtoms of depression (or anxiety, 2. Identifies personal stressors & states the strategies for managing, 3. Identifies activities to decrease isolation and/or symptoms of, 4. Improved psychosocial coping skills., 5. Verbalizes coping strategies., 6. Adequate treatment of depression. and 7. Improved Q.O.L. Psychosocial Test Tool Used:: PHQ-9 Questionnaire PHQ-9 Score: 9 Referral to Behavioral Health PS - Interventions: Yes: Attend Stress Management Classes Intervention/Plan: See List Interventions/Plan:: Assess stressors,coping strategies & signs of derpression on admission, Instruct/assist pt to develop coping & personal stress Mgt strategies, Refer to Behavioral Health if appropriate, Refer to Physician if appropriate, Instruct patient to recognize signs & symptoms of depression, Instruct patient to recog and Other additional plan/intervention Psychosocial - 30-Day Visit Date of Eval: 10/05/24 Session Number:: 3 (Pt has attended 3 sessions. Pt was hospitalized for hip pain and a UTI and has not attended rehab since 09/14/24.) Problems/Goals History of Emotional Disorders: None Psychosocial Goals: 1. Patient is free from overwhelming symtoms of depression (or anxiety, 2. Identifies personal stressors & states the strategies for managing, 3. Identifies activities to decrease isolation and/or symptoms of, 4. Improved psychosocial coping skills., 5. Verbalizes coping strategies., 6. Adequate treatment of depression. and 7. Improved Q.O.L. Psychosocial Test Tool Used:: PHQ-9 Questionnaire PHQ-9 Score: 9 Referral to Behavioral Health PS - Interventions: Yes: Attend Stress Management Classes Plan Interventions/Plan:: Assess stressors,coping strategies & signs of derpression on admission, Instruct/assist pt to develop coping & personal stress Mgt strategies, Refer to Behavioral Health if appropriate, Refer to Physician if appropriate, Instruct patient to recognize signs & symptoms of depression, Instruct patient to recog and Other additional plan/intervention Psychosocial - 60-Day Visit Session Number:: 3 (Pt has attended 3 sessions. Pt was hospitalized for hip pain and a UTI and has not attended rehab since 09/14/24.) Problems/Goals History of Emotional Disorders: None Psychosocial Goals: 1. Patient is free from overwhelming symtoms of depression (or anxiety, 2. Identifies personal stressors & states the strategies for managing, 3. Identifies activities to decrease isolation and/or symptoms of, 4. Improved psychosocial coping skills., 5. Verbalizes coping strategies., 6. Adequate treatment of depression. and 7. Improved Q.O.L. Psychosocial Test Tool Used:: PHQ-9 Questionnaire PHQ-9 Score: 9 Referral to Behavioral Health PS - Interventions: Yes: Attend Stress Management Classes Plan Interventions/Plan:: Assess stressors,coping strategies & signs of derpression on admission, Instruct/assist pt to develop coping & personal stress Mgt strategies, Refer to Behavioral Health if appropriate, Refer to Physician if appropriate, Instruct patient to recognize signs & symptoms of depression, Instruct patient to recog and Other additional plan/intervention Psychosocial - 90-Day Visit Session Number:: 3 (Pt has attended 3 sessions. Pt was hospitalized for hip pain and a UTI and has not attended rehab since 09/14/24.) Problems/Goals History of Emotional Disorders: None Psychosocial Goals: 1. Patient is free from overwhelming symtoms of depression (or anxiety, 2. Identifies personal stressors & states the strategies for managing, 3. Identifies activities to decrease isolation and/or symptoms of, 4. Improved psychosocial coping skills., 5. Verbalizes coping strategies., 6. Adequate treatment of depression. and 7. Improved Q.O.L. Psychosocial Test Tool Used:: PHQ-9 Questionnaire PHQ-9 Score: 9 Referral to Behavioral Health PS - Interventions: Yes: Attend Stress Management Classes Plan Interventions/Plan:: Assess stressors,coping strategies & signs of derpression on admission, Instruct/assist pt to develop coping & personal stress Mgt strategies, Refer to Behavioral Health if appropriate, Refer to Physician if appropriate, Instruct patient to recognize signs & symptoms of depression, Instruct patient to recog and Other additional plan/intervention Psychosocial - Final Assess Visit Session Number:: 3 (Pt has attended 3 sessions. Pt was hospitalized for hip pain and a UTI and has not attended rehab since 09/14/24.) Problems/Goals History of Emotional Disorders: None Psychosocial Goals: 1. Patient is free from overwhelming symtoms of depression (or anxiety, 2. Identifies personal stressors & states the strategies for managing, 3. Identifies activities to decrease isolation and/or symptoms of, 4. Improved psychosocial coping skills., 5. Verbalizes coping strategies., 6. Adequate treatment of depression. and 7. Improved Q.O.L. Psychosocial Test Tool Used:: PHQ-9 Questionnaire PHQ-9 Score: 9 Referral to Behavioral Health PS - Interventions: Yes: Attend Stress Management Classes Plan Interventions/Plan:: Assess stressors,coping strategies & signs of derpression on admission, Instruct/assist pt to develop coping & personal stress Mgt strategies, Refer to Behavioral Health if appropriate, Refer to Physician if appropriate, Instruct patient to recognize signs & symptoms of depression, Instruct patient to recog and Other additional plan/intervention Oxygen & Oxygen Titration Init Visit Session Number:: 3 (Pt has attended 3 sessions. Pt was hospitalized for hip pain and a UTI and has not attended rehab since 09/14/24.) Initial Assessment SpO2:: 89 Oxygen & Oxygen Titration 30D Visit Date of Eval: 10/05/24 Session Number:: 3 (Pt has attended 3 sessions. Pt was hospitalized for hip pain and a UTI and has not attended rehab since 09/14/24.) Reassessment Reassessment- 30 Days: Demonstrate knowledge of O2 Rx at rest & w/exercise SpO2:: 89 Oxygen & Oxygen Titration 60D Visit Date of Eval: 10/05/24 Session Number:: 3 (Pt has attended 3 sessions. Pt was hospitalized for hip pain and a UTI and has not attended rehab since 09/14/24.) Reassessment SpO2:: 89 Oxygen & Oxygen Titration 90D Visit Date of Eval: 10/05/24 Session Number:: 3 (Pt has attended 3 sessions. Pt was hospitalized for hip pain and a UTI and has not attended rehab since 09/14/24.) Reassessment SpO2:: 89 Oxygen & Oxygen Titration MOHSEN Visit Date of Eval: 10/05/24 Session Number:: 3 (Pt has attended 3 sessions. Pt was hospitalized for hip pain and a UTI and has not attended rehab since 09/14/24.) Reassessment SpO2:: 89 Core Components - Initial Visit Session Number:: 3 (Pt has attended 3 sessions. Pt was hospitalized for hip pain and a UTI and has not attended rehab since 09/14/24.) Hypertension Hypertension Diagnosis:: Hypertension ICD-10 I10 BP: 128/82 [place] [employer] Hypertension Guidelines Blood Pressure: 128/88 Outcomes/Goals: Able to verbalize/achieve optimal blood pressure <130/80 and Incorporates diet changes & exercise for blood pressure control by DC Tobacco - Initial Assessment Tobacco Program Goals Stages of Change:: Pre-contemplation Tobacco Use: Non-smoker Gave Education Materials For:: Tobacco Triggers, Pulmonary Disease, Risk Fac tors, Breathing Techniques, Medical Compliance, Pulmonary A&P, Exacerbation Signs & Symptoms and Stress & Relaxation Diabetes Diabetes:: No Core Components - 30 DAYS Visit Date of Eval: 10/05/24 Session Number:: 3 (Pt has attended 3 sessions. Pt was hospitalized for hip pain and a UTI and has not attended rehab since 09/14/24.) Hypertension Hypertension Diagnosis:: Hypertension ICD-10 I10 Resting Blood Pressure:: 128/82 [employer] Hypertension Guidelines Peak Exercise Blood Pressure:: 128/88 Change in medication: No Outcomes/Goals: Able to verbalize/achieve optimal blood pressure <130/80 and Incorporates diet changes & exercise for blood pressure control by DC Interventions/plan: Instruct on optimal blood pressure, hypertension & medications, Instruct on effects of sodium, alcohol, stress, exercise &hypertension and Other additional plan/interventions 30 day Reassessments:: Not Met Tobacco - 30-Day Tobacco Program Goals Stages of Change:: Pre-contemplation Tobacco Use: Non-smoker Gave Education Materials For:: Tobacco Triggers, Pulmonary Disease, Risk Factors, Breathing Techniques, Medical Compliance, Pulmonary A&P, Exacerbation Signs & Symptoms and Stress & Relaxation 30-day Reassessments:: Not Met Medication Medication list reviewed:: Yes Diabetes Diabetes:: No Core Components - 60 DAYS Visit Session Number:: 3 (Pt has attended 3 sessions. Pt was hospitalized for hip pain and a UTI and has not attended rehab since 09/14/24.) Hypertension Hypertension Diagnosis:: Hypertension ICD-10 I10 Resting Blood Pressure:: 128/82 [place] Hypertension Guidelines Peak Exercise Blood Pressure:: 128/88 Change in medication: No Outcomes/Goals: Able to verbalize/achieve optimal blood pressure <130/80 and Incorporates diet changes & exercise for blood pressure control by DC Interventions/plan: Instruct on optimal blood pressure, hypertension & medications, Instruct on effects of sodium, alcohol, stress, exercise &hypertension and Other additional plan/interventions 60 day Reassessments:: Not Met Tobacco - 60-Day Tobacco Program Goals Stages of Change:: Pre-contemplation Tobacco Use: Non-smoker Gave Education Materials For:: Tobacco Triggers, Pulmonary Disease, Risk Factors, Breathing Techniques, Medical Compliance, Pulmonary A&P, Exacerbation Signs & Symptoms and Stress & Relaxation 60-day Reassessments:: Not Met Diabetes Diabetes:: No Core Components - 90 DAYS Visit Session Number:: 3 (Pt has attended 3 sessions. Pt was hospitalized for hip pain and a UTI and has not attended rehab since 09/14/24.) Hypertension Hypertension Diagnosis:: Hypertension ICD-10 I10 Resting Blood Pressure:: 128/82 [place] [employer] Hypertension Guidelines Peak Exercise Blood Pressure:: 128/88 Outcomes/Goals: Able to verbalize/achieve optimal blood pressure <130/80 and Incorporates diet changes & exercise for blood pressure control by DC Interventions/plan: Instruct on optimal blood pressure, hypertension & medications, Instruct on effects of sodium, alcohol, stress, exercise &hypertension and Other additional plan/interventions 90 day Reassessments:: Not Met Tobacco - 90-Day Tobacco Program Goals Stages of Change:: Pre-contemplation Tobacco Use: Non-smoker Gave Education Materials For:: Tobacco Triggers, Pulmonary Disease, Risk Factors, Breathing Techniques, Medical Compliance, Pulmonary A&P, Exacerbation Signs & Symptoms and Stress & Relaxation 90-day Reassessments:: Not Met Diabetes Diabetes:: No Core Components - Final Visit Session Number:: 3 (Pt has attended 3 sessions. Pt was hospitalized for hip pain and a UTI and has not attended rehab since 09/14/24.) Hypertension Hypertension Diagnosis:: Hypertension ICD-10 I10 Resting Blood Pressure:: 128/82 [place] [employer] Hypertension Guidelines Peak Exercise Blood Pressure:: 128/88 Outcomes/Goals: Able to verbalize/achieve optimal blood pressure <130/80 and Incorporates diet changes & exercise for blood pressure control by DC Tobacco - Final Tobacco Program Goals Stages of Change:: Pre-contemplation Tobacco Use: Non-smoker Diabetes Diabetes:: No Knowledge Questionaire (BCKQ) Information Information: [place] COPD Knowledge Questionnaire (BCKQ) This questionnaire is designed to find out what you know about your lung problem. It should be completed without help form anyone else. This usually takes between 10 and 20 minutes. Your answers will help us to find out what information you need to help you to understand and manage your lung condition. [employer] the [id number] which you think is the correct answer. Nutrition Survey Nutrition Survey Instructions Scoring Instructions
[2024-10-05 07:18] VITALS: BP 128/82; BP 128/88; O2SAT 89; BMI 29.9
== END 2024-10-18 23:59 ==
LOC: PR 09:48
PROVIDERS: PCP Family Medicine; Referring Provider Internal Medicine Critical Care Medicine; Visit Provider Internal Medicine Critical Care Medicine
DX: J44.9 Chronic obstructive pulmonary disease, unspecified (principal)
CPT/HCPCS: 97150; 94626

== ENCOUNTER → 2024-09-25 | Outpatient (CLI) | payer MEDICARE, SELFPAY ==
[2024-09-07 15:34] VITALS: BMI 29.9
== END | disposition home or self-care (01) ==
LOC: LABSPEC 16:16
PROVIDERS: PCP Family Medicine; Visit Provider Family Medicine
DX: N30.00 Acute cystitis without hematuria (principal)
CPT/HCPCS: 87086

== ENCOUNTER → 2024-10-22 | Outpatient (CLI) | payer MEDICARE, BC, SELFPAY ==
[2024-10-05 07:18] VITALS: BMI 29.9
--- OUTSIDE RECORDS SUMMARY | 2024-10-22 21:23 | XMS RPT_ITS | CCD ---
Author Organization [facility] Providers Care Screen Maker Name Role Phone Biju Lobo Unavailable Unavailable Unavailable Unavailable Unavailable Biju Lobo Unavailable Yvan Walker Unavailable Unavailable Macario Bond Unavailable Unavailable Princess Mireille Unavailable Unavailable Giovanni Cantu Unavailable Jayne Godinez Unavailable Dr. Biju Lobo Primary Care Unavaila Alfa Workman Attending Unavaila Dr. Biju Canales Primary Care Provider Dr. Biju Lobo Other Provider [phone] Wolfgang Shetty Attending Provider Dr. Biju Lobo Referring Provider Dr. Christian Hernandez Attending Provider Dr. Christian Hernandez Referring Provider Dr. Bboby Shetty Attending Provider Dr. German Nayak Attending Provider Dr. German Nayak Referring Provider Dr. German Nayak Other Provider Dr. Jasson Deng Attending Provider [phone] Dr. Richard Munoz Attending Provider Dr. Biju Lobo Primary Care Provider Dr. Biju Lobo Referring Provider Geno GODFREY, MAHAMED Jones Attending Provider [phone] Dr. Biju Lobo Primary Care Provider Dr. Christian Hernandez Attending Provider [phone] Dr. Biju Lobo Primary Care Provider [phone] Dr. Biju Lobo Referring Provider Dr. German Nayak Attending Provider Dr. Biju Lobo Primary Care Provider [phone] Dr. Biju Lobo Referring Provider Geno FRAME CARVER SPINDLE, FRAME CARVER SPINDLE-C Karen Attending Provider Dr. German Nayak Attending Provider Dr. Christian Hernandez Attending Provider [phone] Dr. Harrison Macario Attending Provider Dr. Christian Hernandez Referring Provider [phone] Dr. Biju Lobo Primary Care Provider [phone] Dr. Biju Lobo Referring Provider Geno FRAME CARVER SPINDLE, FRAME CARVER SPINDLE-C Karen Attending Provider [phone] Dr. Moses Grady Emergency Provider [phone] Delfin Russell Admit Provider Dr. Delfin Russell Other Provider Nito, Dr. Castellon Attending Provider Dr. Delfin Russell Attending Provider Dr. Harrison Spears Attending Provider Dr. Harrison Spears Other Provider Dr. Biju Lobo Primary Care Unavaila NEVIN Lima Attending Unavailable NEVIN ROGERS Attending Unavailable BIJU LOBO Primary Care Unavailable Dr. Harrison Spears Referring Provider Dr. Biju Loob Primary Care Provider [phone] Biju Lobo Referring Provider Dr. Christian Hernandez Attending Provider Dr. Harrison Macario Attending Provider Dr. Christian Hernandez Referring Provider Gneo FRAME CARVER SPINDLE, FRAME CARVER SPINDLE-C Karen Attending Provider Dr. Moses Grady Emergency Provider Drew, Dr. Lenz Admit Provider Drew, Dr. Lenz Other Provider Nito, Dr. Castellon Attending Provider Dr. Harrison Spears Referring Provider Drew, Dr. Lenz Attending Provider Dr. Harrison Spears Attending Provider Dr. Harrison Spears Other Provider Biju Lobo DO A Primary Care Provider Biju Lobo DO Unavailable RJ TRAMMELL Attending Unavailable BIJU LOBO Primary Care Unavailable Dr. Biju Lobo Primary Care Provider Dr. Biju Lobo Referring Provider Dr. Gilbert Hoang Attending Provider Biju Lobo DO Primary Care Provider Rajinder Grijalva MD Unavailable Biju Lobo DO A Primary Care Provider Gilbert Hoang MD Unavailable Biju Lobo DO Primary Care Provider Biju Lobo DO A Primary Care Provider Dr. Biju Lobo DO Primary Care Provider [phone] Tonia CUNHA, Dr. Beasley Attending Provider Dr. Ramos Randall MD Emergency Provider [facility], Dr. Peck Referring Provider David CUNHA, Dr. Gonzales Attending Provider Kathe CUNHA, Dr. Akbar Tatum Attending Provider [phone] Kathe CUNHA, Dr. Akbar Tatum Referring Provider Viktor CUNHA, Dr. Hunt Attending Provider Viktor CUNHA, Dr. Hunt Referring Provider Shamika FRAME CARVER SPINDLE-CTita Attending Provider [facility] , Biju Moore Primary Care Provider Yamil POWELL, Dr. Peck Primary Care Provider [phone] Tonia CUNHA, Dr. Beasley Attending Provider Tonia CUNHA, Dr. Beasley Emergency Provider [facility] , Dr. Peck Referring Provider David CUNHA, Dr. Gonzales Attending Provider [phone] Kathe CUNHA, Dr. Akbar Tatum Attending Provider Kathe CUNHA, Dr. Akbar Tatum Referring Provider Viktor CUNHA, Dr. Hunt Attending Provider Viktor CUNHA, Dr. Hunt Referring Provider Shamika GODFREY-Tita Gale Attending Provider David CUNHA, Dr. Gonzales Referring Provider Amirah CUNHA, Dr. Terry Attending Provider YAMIL, BIJU A Referring Unavailable CAROLE, HEMANT [...] YAMIL, BIJU A Primary Care Unavailable Shamika FRAME CARVER SPINDLE-C, Tita Maza Referring Provider Yamil POWELL, Dr. Peck Primary Care Provider hSamika FRAME CARVER SPINDLE-C, Tita Maza Other Provider Alexander POWELL, Dr. Ramos Attending Provider Yamil DO, Dr. Peck Primary Care Provider Yamil POWELL, Dr. Peck Referring Provider David CUNHA, Dr. Gonzales Attending Provider Yamil DO, Dr. Peck Primary Care Provider Yamil DO, Dr. Peck Primary Care Provider Viktor CUNHA, Dr. Hunt Attending Provider Yamilkiko POWELL, Dr. Peck Referring Provider Dr. Richard Munoz DO Attending Provider Yamil DO, Dr. Peck Primary Care Provider Yamil POWELL, Dr. Peck Referring Provider Shamika FRAME CARVER SPINDLE-CTita Attending Provider Dr. Richard Munoz DO Referring Provider [phone] Jose Oliveira DO Emergency Provider de Bola DO, Dr. Menchaca Admit Provider Unavail able de Bola DO, Dr. Menchaca Attending Provider Unav ailable de Bola DO, Dr. Menchaca Other Provider Unavail able Jasson POWELL, Dr. Samayoa Attending Provider Jasson POWELL, Dr. Samayoa Other Provider Jean CUNHA, Dr. Jade Attending Provider [phone] Yamil POWELL, Dr. Peck Primary Care Provider Dr. Christian Hernandez MD Attending Provider [phone] Shamika FRAME CARVER SPINDLE-CTita Attending Provider Dr. Biju Lobo DO Referring Provider [phone] Dr. Biju Lobo DO Attending Provider [phone] John Paul FRAME CARVER SPINDLE-CBrenda Attending Provider Yamil, Biju Primary Care Unavailable Christian Hernandez Attending Unavailable Christian Hernandez Referring Unavailable Yamil, Biju Primary Care Unavailable Ramos Randall Attending Unavailable Yamil, Biju Primary Care Unavailable Christian Hernandez Attending Unavailable Christian Hernandez Referring Unavailable Yamil, Biju Primary Care Unavailable Nikolai Freeman Admitting Unavailable Nikolai Freeman Attending Unavailable Nikolai Freeman Consulting Unavailable Tita Wick Attending Unavailable Tita Wick Referring Unavailable Yamil, Biju Primary Care Unavailable Richard Munoz Referring Unavailable Richard Munoz Attending Unavailable Yamil, Biju Primary Care Unavailable ViktorGilbert Referring Unavailable ViktorGilbert Attending Unavailable Yamil, Biju Primary Care Unavailable Yamil, Biju Primary Care Unavailable Nikolai Freeman Consulting Unavailable Nikolai Freeman Admitting Unavailable Danita Spaulding Attending Unavailable Yamil, Biju Primary Care Unavailable Yamil, Biju Attending Unavailable Yamil, Biju Primary Care Unavailable Nikolai Freeman Admitting Unavailable Nikolai Freeman Consulting Unavailable Delfin Russell Attending Unavailable Frida Newell Consulting Unavailable Drew, Delfin Consulting Unavailable Frida Newell Attending Unavailable Trammell IIRj Referring Unavailable Yamil, Biju Primary Care Unavailable Bijal IIRj Attending Unavailable Yamil, Biju Primary Care Unavailable Akbar Archuleta Attending Unavailable KatheAkbar Referring Unavailable Yamil, Biju Primary Care Unavailable Tita Wick Attending Unavailable Tita Wick Referring Unavailable BrownRichard Attending Unavailable Yamil, Biju Primary Care Unavailable BrownRichard Referring Unavailable Tita Wick Referring Unavailable Yamil, Biju Primary Care Unavailable Tita Wick Attending Unavailable Richard Munoz Referring Unavailable Richard Munoz Attending Unavailable Yamil, Biju Primary Care Unavailable BrownRichard Referring Unavailable BrownRichard Attending Unavailable Yamil, Biju Primary Care Unavailable Yamil, Biju Primary Care Unavailable Gilbert Hoang Attending Unavailable Yamil, Biju Referring Unavailable Yamil, Biju Primary Care Unavailable Yamil, Biju Referring Unavailable Christian Hernandez Attending Unavailable Yamil, Biju Primary Care Unavailable BadChristian valadez Attending Unavailable Yamil, Biju Referring Unavailable Yamil, Biju Primary Care Unavailable Nikolai Freeman Admitting Unavailable Nikolai Freeman Consulting Unavailable Delfin Russell Attending Unavailable Frida Newell Consulting Unavailable Frida Newell Attending Unavailable Frida Newell Consulting Unavailable Yamil, Biju Primary Care Unavailable Ramos Randall Attending Unavailable Yamil, Biju Primary Care Unavailable Nikolai Freeman Admitting Unavailable Nikolai Freeman Consulting Unavailable Danita Spaulding Attending Unavailable Danita Spaulding Consulting Unavailable Yamil, Biju Primary Care Unavailable Christian Hernandez Attending Unavailable Yamil, Biju Referring Unavailable Yamil, Biju Primary Care Unavailable Christian Hernandez Attending Unavailable Yamil, Biju Referring Unavailable Yamil, Biju Referring Unavailable Yamil, Biju Primary Care Unavailable Tita Wick Attending Unavailable Yamil, Biju Referring Unavailable Yamil, Biju Primary Care Unavailable Christian Hernandez Attending Unavailable Yamil, Biju Primary Care Unavailable John Paul FRAME CARVER SPINDLE, Brenda Attending Unavailable Yamil, Biju Referring Unavailable Yamil, Biju Referring Unavailable Yamil, Biju Primary Care Unavailable Tita Wick Attending Unavailable Richard Munoz Attending Unavailable Yamil, Biju Primary Care Unavailable Yamil, Biju Referring Unavailable de BolaNikolai willoughby Attending Unavailable Yamil, Biju Primary Care Unavailable Yasmany Pena Attending Unavailable Richard Munoz Attending Unavailable Tita Wick Referring Unavailable Yamil, Biju Primary Care Unavailable Harrison Macario Attending Unavailable Yamil, Biju Primary Care Unavailable David Christian Referring Unavailable Richard Munoz Attending Unavailable Tita Wick Consulting Unavailable Tita Wick Referring Unavailable Yamil, Ibju Primary Care Unavailable Yamil, Biju Primary Care Unavailable Biju Lobo Referring Unavailable Christian Hernandez Attending Unavailable Christian Hernandez Attending Unavailable Biju Lobo Primary Care Unavailable Biju Lobo Referring Unavailable Tita Wick Attending Unavailable Biju Lobo Referring Unavailable Biju Lobo Primary Care Unavailable Allergies Allergy Classification Reported Allergen(s) Allergy Type Date of Onset Reaction(s) Facility (20 sources) Gemtesa TABS; Translations: [G[place]a TABS] Allergy to drug (finding) 03-20-2023 Unknown [facility] (20 sources) vibegron; Translations: [VIBEGRON] Allergy to substance 01-24-2022 [facility] Medications Current Medications Medication Drug Class(es) Dates Sig (Normalized) Sig (Original) aspirin 81 mg chewable tablet (20 sources) Platelet Aggregation Inhibitor, Nonsteroidal Anti-inflammatory Drug Start: 01-24-2022 End: 09-07-2023 take 1 tablet by mouth once daily Aspirin (Luis Alberto Chewable Aspirin) 81 mg tablet,chewable Active 81 mg PO DAILY January 24, 2022 1:00am [facility] Start: 06-23-2021 take 1 tablet by [...] % drops Discontinued 0 BUCCAL DAILY 10 2 January 31, 2023 12:53pm June 10, 2023 [...] DAILY NEEDED January 13, 2021 1:00am Start: 11-23-2021 Benzonatate 20 0 MG Oral Capsule Quantity: [...] Active docusate sodium 50 mg / sennosides, alf 8.6 mg oral tablet (1 source) Start: [...] (Perforomist) 20 mcg/2 mL solution for nebulization (17 sources) Start: 04-15-2024 take 1 mL by [...] oral capsule (1 source) Anti-epileptic Agent Start: 2 take 1 capsule by mouth three times daily gabapentin 100 mg oral capsule ; 1 cap(s) orally 3 times a day Quantity: 0 Refills: 0 Ordered: 03-Jun-2021 Shobha Espitia Start: 27-May-2021 Status: Discontinued Generic Substitution Allowed Handicap placard (20 sources) Start: 3 Handicap placard Active 0 .Route .MEDSUPPLY 1 0 October [...] Status: Discontinued Generic Substitution Allowed Motorized scooter (7 sources) Start: 09-10-2024 Motorized scooter Active 0 .Route .MEDSUPPLY 1 September 10, 2024 12:00am Parkinson's disease Abnormal gait Parkinson's disease without dyskinesia, without mention of fluctuations Unspecified abnormalities of gait and mobility gait d/o (R26.9); Parkinson's disease (G20.A1) As directed nebulizer kits (17 sources) Start: 04-15-2024 nebulizer kits Active 0 [...] 7 days. 14 capsule 10/10/2023 10/17/2023 Active nystatin [id number] unt/ml oral suspension (20 sources) Polyene Antifungal [...] three times per day for 10 days omeprazole 40 mg delayed release oral capsule (20 sources) Proton Pump Inhibitor Start: 09-15-2024 take 1 capsule by mouth once daily Omeprazole 40 mg capsule,delayed release(DR/EC) Active 40 mg PO DAILY September 15, 2024 12:00am Start: 01-18-2021 End: 03-25-2024 take 1 capsule [...] day for eight weeks. Then will taper. polyethylene glycol 3350 39096 mg powder for oral solution (1 source) [...] Take 1 packet by mouth daily. Active Respiratory Therapy Supplies [facility] (4 sources) Start: 09-20-2023 Respiratory Th erapy Supplies Misc Pt has size 6 shiley cuffless trach. Please supply pt with 60 size 6IC75 inner cannulas per month. 60 Each 11 09/20/2023 Active revefenacin 0.0583 mg/ml inhalation solution (18 sources) Start: 04-15-2024 Revefenacin (Y upelri) 175 mcg/3 mL solution for nebulization Active 175 ug INHALATION daily 90 3 April 15, 2024 1:00am Revefenacin (Yup elri) 175 MCG/3ML Solution Inhale daily. Active rOPINIRole 1 mg oral tablet (20 sources) Nonergot Dopamine Agonist Start: 09-15-2024 take 0.5 mg by mouth three times daily Ropinirole 1 mg tablet Active 0.5 mg PO THREE TIMES A DAY September 15, 2024 12:00am Start: 07-23-2024 End: 09-15-2024 take 1 tablet by mouth three times daily Ropinirole 1 mg tablet Discontinued 1 mg PO THREE TIMES A DAY 90 5 July 23, 2024 12:00am September 15, 2024 11:08pm Start: 05-26-2024 End: 07-23-2024 take 1 tablet [...] 3 05/29/2023 08/27/2023 Active Start: 11-02-2020 End: 10-08-2024 take 1 capsule by mouth once daily Tamsulosin 0.4 mg capsule Discontinued 0.4 mg PO DAILY May 17, 2022 10:16am October 08, 2024 11:39am prostate Start: 09-20-2020 Tamsulosin HCl - 0.4 [...] Gene Lemus Start: 05-Jun-2021 Generic Substitution Allowed [id number] 200 actuat albuter ol 0.09 mg/actuat metered [...] Beds Quantity: 30 Refills: 1 Ordered: 08-Jun-2021 Laendra Pollack Start: 08-Jun-2021 End: 06-Aug-2021 Generic Substitution Allowed Atropine (20 sources) Anticholinergic, Cholinergic Muscarinic Antagonist Start: 01-31-2023 End: 06-10-2023 Atropine Discontinued 0 BUCCAL DAILY 10 Tommie 14th, 2023 12:53pm June 10, 2023 10:15am Take [...] / glycopyrrolate 0.009 mg/actuat metered dose inhaler (20 sources) Corticosteroid, beta2-Adrenergic Agonist Start: 09-03-2023 End: 06-24-2024 take 2 puff(s) by inhalation twice daily 2 puff, Inhalation, 2 TIMES DAILY, First dose on Sat09/03/23 at 1800, Until Discontinued Start: 07-09-2023 End: 09-18-2023 Kvrgqtextc-Eaondkvt-Dqaefakc ol (Breztri Aerosphere) 160-9-4.8 mcg/actuation HFA aerosol inhaler Discontinued 2 NMA INHALATION TWICE A DAY 10.7 3 July 09, 2023 12:00am September 18, 2023 12:55pm breathing Start: 07-09-2023 End: 09-18-2023 Yamapqzjvc-Adtplndh-Olhvscwo ol (Breztri Aerosphere) 160-9-4.8 mcg/actuation HFA aerosol inhaler Discontinued 2 NMA INHALATION TWICE A DAY 10.July 09, 2023 12:00am September 18, 2023 12:55pm Start: 07-09-2023 End: 09-18-2023 Dkltxhklrj-Utourqgi-Cvbiripx ol (Breztri Aerosphere) 160-9-4.8 mcg/actuation HFA aerosol [...] one week then 1 tab TID thereafter cefdinir 300 mg oral capsule (4 sources) Cephalosporin Antibacterial Start: 09-18-2024 End: 10-08-2024 take 1 capsule by mouth twice daily Cefdinir 300 mg capsule Discontinued 300 mg PO TWICE A DAY 14 September 18, 2024 12:00am October 08, 2024 11:38am cephalexin 250 mg oral capsule (5 sources) [...] 0.1 mg/actuat metered dose inhaler (1 source) Corticosteroi d, beta2-Adrener gic Agonist Start: 09-02-2023 End: 09-03-2023 take 2 puff(s) by inhalation every twelve hours 2 puff, Inhalation, EVERY 12 HOURS, First dose on Sat09/02/23 at 2100, Until Discontinued 12 hr guaiFENesin 1200 mg extended release oral tablet (20 sources) Start: 05-27-2024 End: 09-15-2024 take 1 tablet by mouth once daily, then take 1 tablet by mouth every twelve hours Guaifenesin (Mucinex) 1,200 mg tablet extended release 12hr Discontinued 1200 mg PO .QD 30 11 May 27, 2024 12:00am September 15, 2024 11:06pm Cough Cough, unspecified Start: 08-15-2023 End: 09-17-2023 [...] 1200 PO Take by mouth daily. Active 1 ml hydrALAZINE hydrochloride 20 mg/ml injection [...] tablet Discontinued 750 mg PO DAILY 7 0 January 24, 2022 1:00am May 17, 2022 [...] Oral, EVERY 24 HOURS NEEDED, Starting on 09/02/23 at 2036, Until 09/07/23 at 1332, Other, If no Bowel Movement in 72 hours in addition to exisitng regimen., 10 mL concentrate = 30 mL regular melatonin 3 mg oral tablet (1 source) Start: 09-02-2023 End: 09-07-2023 take 6 mg by mouth once daily at bedtime as needed 6 mg, Oral, DAILY AT BEDTIME NEEDED, Starting on 09/02/23 at 2036, Until 09/07/23 at 1332, Insomnia 24 hr [...] 0 Refills: 0 Ordered: 27-Feb-2021 DO Active nitrofurantoin, macrocrystals 25 mg / nitrofurantoin, monohydrate 75 mg oral capsule (17 sources) Nitrofuran Antibacterial Start: 10-21-2023 End: 10-08-2024 Nitrofurantoin Monohyd/M-Cryst 100 mg capsule Discontinued 100 mg PO MOWEFR October 21, 2023 12:00am October 08, 2024 11:38am bladder Ondansetron 4mg/2ml (ZOFRAN) injection 4 mg (1 source) Start: 09-02-2023 End: 09-07-2023 take 4 mg intravenously every six hours as needed Ondansetron 4mg/2ml (ZOFRAN) injection 4 mg oseltamivir 75 mg oral capsule (17 sources) Neuraminidase Inhibitor Start: 03-08-2024 End: 04-01-2024 take 1 capsule by mouth twice daily Oseltamivir (Tamiflu) 75 mg capsule Discontinued 75 mg PO TWICE A DAY 10 5 0 March 08, 2024 1:00am April 01, 2024 3:06pm oxyCODONE hydrochloride 5 mg oral tablet (20 sources) Opioid Agonist Start: 09-07-2023 End: 10-02-2023 [...] 09-07-2023 Polyethylene glycol (MIRALAX) packet 17 g predniSONE 10 mg oral tablet (20 sources) Start: 07-15-2024 End: 10-08-2024 Prednisone 10 mg tablet Discontinued 10 mg PO daily 30 0 July 15, 2024 2:33pm October 08, 2024 11:38am take 4 tabs for three days, then 3 tabs for three days, then 2 tabs for three days, then 1 tab for 3 days Start: 04-15-2024 End: 05-27-2024 Prednisone 10 mg tablet Discontinued 10 mg PO daily 30 0 April 15, 2024 1:00am May 27, 2024 [...] tablet Discontinued 50 mg PO DAILY 5 0 July 23, 2023 12:00am August 14, 2023 8:32am Start: 05-03-2023 End: 05-16-2023 take 1 tablet by mouth once daily Prednisone 50 mg tablet Discontinued 50 mg PO DAILY 5 0 May 03, 2023 12:00am May 16, 2023 11:19am Start: 02-15-2023 End: 03-12-2023 Prednisone 10 mg tablet Discontinued 10 mg PO daily 30 0 February 15, 2023 1:00am March 12, [...] tablet Discontinued 20 mg PO DAILY 30 0 December 13, 2020 3:36pm January 04, 2021 [...] of this medication.Take with food or milk. Promethazine (1 source) Phenothiazine Start: 09-02-19 End: 09-07-19 take 1 tablet by mouth every six hours as needed Promethazine HCl (PHENERGAN) tablet 12.5 mg rosuvastatin calcium 5 mg oral tablet (20 sources) HMG-CoA Reductase Inhibitor Start: 09-03-19 End: 09-07-19 take 5 mg by mouth once daily [...] 27-Mar-2022 Active tiZANidine 2 mg oral tablet (20 sources) Central alpha-2 Adrenergic Agonist Start: 06-21-2023 [...] Classification Problem Date Documented Da te Episodic/Chronic Acute and unspecified renal failure (13 sources) Acute renal failure syndrome; Translations: [Acute kidney failure, unspecified] Onset: 5 09-15-2024 Episodic Administrative/social admission (20 sources) Counseling procedure with explicit context; Translations: [Counseling on substance use and abuse] 05-17-2022 Episodic Anal and rectal conditions (17 sources) Proctitis; Translations: [Other specified diseases of anus and rectum] 10-22-2023 Episodic Asthma (20 sources) Asthma; Translations: [Asthma, unspecified type, unspecified] Onset: 4 05-17-2022 Chronic Cardiac dysrhythmias (20 sources) Tachycardia; Translations: [Tachycardia, unspecified] Onset: 2 06-06-2021 Episodic Chronic obstructive pulmonary disease and bronchiectasis (20 sources) Acute exacerbation of chronic obstructive airways disease; Translations: [Chronic obstructive pulmonary disease with (acute) exacerbation] Onset: 5 02-01-2022 Chronic Chronic obstructive pulmonary disease and bronchiectasis (20 sources) Chronic obstructive pulmonary disease and bronchiectasis; Translations: [Other specified chronic obstructive pulmonary disease] Onset: Coagulation and hemorrhagic disorders (13 sources) Thrombocytopenic disorder; Translations: [Thrombocytopenia, unspecified] Onset: 5 09-15-2024 Chronic Complications of surgical procedures or medical care (20 sources) Postoperative hypothyroidism; Translations: [Postsurgical hypothyroidism] Onset: 4 05-17-2022 Chronic Congestive heart failure; nonhypertensive (20 sources) Acute on chronic diastolic heart failure; Translations: [Acute on chronic diastolic heart failure] Onset: 5 06-07-2021 Chronic Coronary atherosclerosis and other heart disease (20 sources) Coronary arteriosclerosis; Translations: [Coronary atherosclerosis of unspecified type of vessel, sauk-suiattle or graft] Onset: 3 05-17-2022 Chronic Coronary atherosclerosis and other heart disease (20 sources) Presence of coronary angioplasty implant and graft; Translations: [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 artery] Onset: 2 Episodic Comment on above: mid RCA-SKYLAR 3.5 x 26 mm Resolute Rough And Ready Coronary atherosclerosis and other heart disease (1 source) Coronary atherosclerosis and other heart disease 06-06-2021 Diseases of white blood cells (11 sources) Leukocytosis; Translations: [Elevated white blood cell count, unspecified] Onset: 5 09-16-2024 Chronic Disorders of lipid metabolism (20 sources) Hyperlipoproteinemia; Translations: [Other and unspecified hyperlipidemia] Onset: 2 06-06-2021 Chronic Esophageal disorders (20 sources) Laryngopharyngeal reflux; Translations: [Other diseases of larynx, not elsewhere classified] 10-25-2023 Chronic Essential hypertension (20 sources) Hypertensive disorder; Translations: [Unspecified essential hypertension] Onset: 3 05-17-2022 Chronic Genitourinary symptoms and ill-defined conditions (20 sources) Urge incontinence of urine; Translations: [Urge incontinence] 05-17-2022 Chronic Genitourinary symptoms and ill-defined conditions (20 sources) Poor stream of urine; Translations: [Slowing of urinary stream] Onset: 4 05-17-2022 Episodic Hyperplasia of prostate (20 sources) Hyperplasia [...] viral diseases Onset: 2 06-06-2021 Episodic Influenza (17 sources) Influenza due to Influenza A virus; Translations: [Influenza due to other identified influenza virus with other respiratory manifestations] 03-16-2024 Episodic Malaise and fatigue (20 sources) Fatigue; Translations: [Other fatigue] Onset: 5 06-15-2022 Episodic Mycoses (20 sources) Mycosis; Translations: [...] 06-06-2021 Episodic Other aftercare (1 source) Other prison (current) drug therapy; Translations: [Other sales promotion director (current) drug therapy] Onset: 2 Episodic Other and ill-defined heart disease (18 sources) Diastolic dysfunction; Translations: [Other ill-defined heart [...] [Orthostatic hypotension] 07-02-2022 Episodic Other circulatory disease (20 sources) Clearing throat - hawking; Translations: [Other specified symptoms and signs involving the circulatory and respiratory systems] 05-16-2023 Episodic Other circulatory disease (17 sources) Transient hypotension; Translations: [Hypotension, unspecified] 11-05-2023 Episodic Other circulatory disease (17 sources) Nasal mucosa moist 06-10-2023 Episodic Other diseases of kidney and ureters (2 sources) Other obstructive and reflux uropathy; Translations: [Other obstructive and reflux uropathy] Onset: 4 Episodic Other gastrointestinal disorders (1 source) Abdominal distension, gaseous; Translations: [Flatulence, eructation, and gas pain] Onset: 2 06-06-2021 Episodic Other gastrointestinal disorders (20 sources) Cricopharyngeal disorder; Translations: [Dysphagia, pharyngeal phase] 11-02-2020 Episodic Other gastrointestinal disorders (20 sources) Diarrhea; Translations: [Diarrhea, unspecified] 03-16-2023 Episodic Other gastrointestinal disorders (8 sources) Diarrhea, unspecified; Translations: [Diarrhea] 03-16-2023 Episodic Other gastrointestinal disorders (20 sources) Dysphagia; Translations: [Dysphagia, unspecified] 09-07-2023 Episodic Other gastrointestinal disorders (1 source) Dysphagia, unspecified; Translations: [Dysphagia, unspecified] Onset: 5 Episodic Other hematologic conditions (1 source) Other specified abnormalities of plasma proteins; Translations: [Other specified abnormalities of plasma proteins] Onset: 5 Episodic Other hereditary and degenerative [...] injuries and conditions due to external causes (18 sources) Angioedema; Translations: [Angioneurotic edema, initial encounter] [...] Onset: 2 Episodic Other lower respiratory disease (20 sources) Cough; Translations: [Cough] 05-16-2023 Episodic Other lower respiratory disease (2 sources) Dyspnea, unspecified; Translations: [Other respiratory abnormalities] 05-16-2023 Episodic Other lower respiratory disease (20 sources) Hypoxia; Translations: [Hypoxemia] 06-21-2023 Episodic Other lower respiratory disease (1 source) Hypoxemia; Translations: [Hypoxemia] 06-21-2023 Episodic Other male genital disorders (6 sources) Male erectile dysfunction, unspecified; Translations: [Impotence of organic origin] Onset: 4 05-29-2023 Chronic Other nervous system disorders (1 source) Postoperative pain ; Translations: [Other acute postprocedural pain] 09-07-2023 Episodic Other nervous system disorders (1 source) Unspecified abnormalities of gait and mobility; Translations: [Unspecified abnormalities of gait and mobility] Onset: 5 Episodic Other nutritional; endocrine; and metabolic disorders (12 sources) Obese class I; Translations: [Class 1 obesity] 09-15-2024 Chronic Other nutritional; endocrine; and metabolic disorders (20 sources) History of hypercholesterolemia; Translations: [Personal history of other endocrine, metabolic, and immunity disorders] Episodic Other nutritional; endocrine; and metabolic disorders (2 sources) Abnormal weight gain; Translations: [Abnormal weight gain] Onset: 2 06-06-2021 Episodic Other nutritional; endocrine; and metabolic disorders (17 sources) Body mass index 25-29 - overweight; [...] Onset: 4 Chronic Other upper respiratory disease (2 sources) Tracheostomy status; Translations: [Tracheostomy status] Onset: 5 Chronic Other upper respiratory disease (20 sources) [...] spasm] 07-29-2020 Episodic Other upper respiratory disease (18 sources) Vocal cord dysfunction; Translations: [Other diseases of vocal cords] 06-21-2023 Episodic Other upper respiratory disease (1 source) Other diseases of vocal cords; Translations: [Other diseases of vocal cords] 06-21-2023 Episodic Parkinson`s disease (20 sources) Parkinson's disease; Translations: [Parkinson's disease] 06-06-2022 Chronic Parkinson`s disease (15 sources) Parkinson`s disease; Translations: [Parkinson's disease without dyskinesia, without mention of fluctuations] Onset: 5 Phlebitis; thrombophlebitis and thromboembolism (20 sources) Acute [...] (adult) (pediatric)] 09-11-2022 Chronic Residual codes; unclassified (13 sources) Obstructive sleep apnea (adult) (pediatric); Translations: [...] fraction 65%.; Respiratory failure; insufficiency; arrest (adult) (16 sources) Acute hypoxemic respiratory failure; Translations: [Acute [...] (coronary artery disease) 06-07-2021 Unclassified (1 source) Obesity, class 1; Translations: [Obesity, class 1] Onset: 5 Unclassified (1 source) Cough, unspecified; Translations: [Cough, unspecified] Onset: 5 Urinary tract infections (20 sources) Recurrent urinary tract infection; Translations: [Urinary tract infection, site not specified] Onset: 10-17-2023 Episodic Viral infection (17 sources) Disease caused by 2019-nCoV; Translations: [COVID-19] 10-22-2023 Episodic Viral infection (1 source) COVID-19; Translations: [COVID-19] Onset: Past or Other Problems Problem Classification Problem Date Documented Date Episodic/Chronic Conditions associated with dizziness or vertigo (19 sources) Dizziness; Translations: [Dizziness and giddiness] Onset: 05-18-2024 06-18-2023 Episodic E Codes: Adverse effects of medical drugs (18 sources) Adverse reaction to drug; Translations: [Adverse effect of unspecified drugs, medicaments and biological substances, initial encounter] Onset: 11-02-2023 10-30-2023 Episodic E Codes: Fall (18 sources) Fall; Translations: [Unspecified fall, initial encounter] Onset: 05-18-2024 09-09-2023 Episodic Fluid and electrolyte disorders (20 sources) Hypokalemia; Translations: [Hypokalemia] Onset: 11-02-2023 06-18-2023 Episodic Mood disorders (6 sources) Mood disorders [...] Translations: [Tobacco use] Onset: 09-25-2022 Episodic Syncope (18 sources) Near syncope; Translations: [Syncope and collapse] Onset: 11-02-2023 10-29-2023 Episodic Unclassified (5 sources) Nasal mucosa moist; Translations: [Moist mucous membranes of ear, nose, and throat] 05-16-2023 Unclassified (4 sources) Onset: 05-29-2023 Resolved: 10-17-2023 05-29-2023 Results Test Name Value Interpretation Reference Range Facility Cardiology Visit Reporton Cardiology Visit Report Normal [facility] [place] - Individual Treatment Pl anon 10-05-2024 CO - Individual Treatment Plan Normal [facility] Urine Cultureon 09-26-2024 URC Culture exhibits no growth. Normal [facility] Comment on above: Performed By: #### M 100.2200 ####[facility] [address] [place], [place], [id number] Urine cultureOrdered By: Tyesha Lobo on 09-25-2024 Bacteria identified Cx Nom (U) Culture exhibits no growth. [facility] Culture, Blood (WB)on 2024 CUB Blood cultures x2, f rom two different sites No growth in 5 days. Normal [facility] Comment on above: Performed By: #### L 501.2450, L500.4050, L300.4310, L501.4021, L300.3900, L503.7505, M200.1000, L503.6005 ####[facility] [address] [place], [address] Absolute lymphocyte countOrd ered By: Danita Spaulding on 09-17-2024 Lymphocytes Auto (Unsp spec) [#/Vol] 0.91 10*3/uL 0.83-4.51 [facility] Absolute neutrophil countOrd ered By: Danita Spaulding on 09-17-2024 Neutrophils (Bld) [#/Vol] 5.8 10*3/uL 2.0-7.7 [facility] Anion gap in Serum or Plasma Ordered By: Danita Spaulding on 09-17-2024 Anion gap [Moles/Vol] 9 mmol/L 5-15 [facility] Automated lymphocyte count a s percentage of total leukocytesOrdered By: Danita Spaulding on 09-17-2024 Lymphocytes/100 WBC Auto (Unsp spec) 12.3 % Low 19-41 [facility] BUN/creatinine ratioOrdered By: Danita Spaulding on 09-17-2024 Urea nitrogen/Creatinine [Mass ratio] 12.0 mg/mg 10-20 [facility] Basic Metabolic Profile (BMP )on 09-17-2024 BUN/CRE 12.0 RATIO Normal - [facility] Comment on above: Performed By: #### L 500.2500, L501.2300 ####[facility] [address] [place], [address] Calcium [Mass/Vol] 8.7 mg/dL Normal 7.6-11.0 [facility] Comment on above: Performed By: #### L 500.2500, L501.2300 ####[facility] [address] [place], [address] Chloride [Moles/Vol] 103 mmol/L Normal 98-108 [facility] Comment on above: Performed By: #### L 500.2500, L501.2300 ####[facility] [address] [place], [address] CO2 [Moles/Vol] 28.1 mmol/L Normal 21.0-32.0 [facility] Comment on above: Performed By: #### L 500.2500, L501.2300 ####[facility] [address] [place], [address] Creatinine [Mass/Vol] 0.96 mg/dL Normal 0.70-1.20 [facility] Comment on above: Performed By: #### L 500.2500, L501.2300 ####[facility] [address] [place], [address] ECRCL 86.87 ml/min Normal 50-250 [facility] Comment on above: Performed By: #### L 500.2500, L501.2300 ####[facility] [address] [place], [address] GAP 9 Normal 5-15 [facility] Comment on above: Performed By: #### L 500.2500, L501.2300 ####[facility] [address] [place], [address] GFR/1.73 sq M.predicted among non-blacks MDRD (S/P/Bld) [Vol rate/Area] 87 mL/min/{1.73_m2} Normal >60 [facility] Comment on above: Result Comment: mL/m in/1.73m2 CKD-EPI Creatinine Equation (2020) Performed By: #### L 500.2500, L501.2300 ####[facility] [address] [place], [address] Glucose [Mass/Vol] 101 mg/dL High 70-99 [facility] Comment on above: Performed By: #### L 500.2500, L501.2300 ####[facility] [address] [place], [address] Potassium [Moles/Vol] 4.3 mmol/L Normal 3.3-5.1 [facility] Comment on above: Performed By: #### L 500.2500, L501.2300 ####[facility] [address] [place], [address] Sodium [Moles/Vol] 139 mmol/L Normal 133-145 [facility] Comment on above: Performed By: #### L 500.2500, L501.2300 ####[facility] [address] [place], [address] Urea nitrogen [Mass/Vol] 12 mg/dL Normal 4-19 [facility] Comment on above: Performed By: #### L 500.2500, L501.2300 ####[facility] [address] [place], [address] Basophil percentageOrdered B y: Danita Spaulding on 09-17-2024 Basophils/100 WBC (Bld) 0.3 % 0-1 [facility] CBC W/Diff, Automatedon 08-20 Absolute Lymph 0.91 X10 3/uL Normal 0.83-4.51 [facility] Comment on above: Performed By: #### L 100.0100 ####[facility] [address] [place], [address] Absolute Neut 5.8 X10 3/uL Normal 2.0-7.7 [facility] Comment on above: Performed By: #### L 100.0100 ####[facility] [address] [place], [address] Basophils/100 WBC (Bld) 0.3 % Normal 0-1 [facility] Comment on above: Performed By: #### L 100.0100 ####[facility] [address] [place], [address] Eosinophils/100 WBC (Bld) 1.2 % Normal 0-5 [facility] Comment on above: Performed By: #### L 100.0100 ####[facility] [address] [place], [address] Erythrocyte distribution width (RBC) [Ratio] 13.2 % Normal 11.6-14.6 [facility] Comment on above: Performed By: #### L 100.0100 ####[facility] [address] [place], [address] Hematocrit (Bld) [Volume fraction] 41.8 % Normal 40-54 [facility] Comment on above: Performed By: #### L 100.0100 ####[facility] [address] [place], [address] Hemoglobin (Bld) [Mass/Vol] 13.6 g/dL Normal 13.0-16.5 [facility] Comment on above: Performed By: #### L 100.0100 ####[facility] [address] [place], [address] IG% 0.300 Normal 0.0-0.9 [facility] Comment on above: Result Comment: IG% - Immature Granulocytes (promyelocytes, myelocytes andmetamyelocytes) > 1% indicates that a LEFT SHIFT is Present. Performed By: #### L 100.0100 ####[facility] [address] [place], [address] Lymphocytes/100 WBC (Bld) 12.3 % Low 19-41 [facility] Comment on above: Performed By: #### L 100.0100 ####[facility] [address] [place], [address] MCH (RBC) [Entitic mass] 31.7 pg Normal 27.0-32.0 [facility] Comment on above: Performed By: #### L 100.0100 ####[facility] [address] [place], [address] MCHC (RBC) [Mass/Vol] 32.5 g/dL Normal 32-36 [facility] Comment on above: Performed By: #### L 100.0100 ####[facility] [address] [place], [address] MCV (RBC) [Entitic vol] 97.4 fL High 80-94 [facility] Comment on above: Performed By: #### L 100.0100 ####[facility] [address] [place], [address] Monocytes/100 WBC (Bld) 8.0 % Normal 0-10 [facility] Comment on above: Performed By: #### L 100.0100 ####[facility] [address] [place], [address] Neutrophils/100 WBC (Bld) 77.9 % High 47-70 [facility] Comment on above: Performed By: #### L 100.0100 ####[facility] [address] [place], [address] Nucleated RBC (Bld) [#/Vol] 0 10*3/uL Normal 0-5 [facility] Comment on above: Performed By: #### L 100.0100 ####[facility] [address] [place], [address] Platelet mean volume (Bld) [Entitic vol] 11.9 fL Normal 6.2-12.0 [facility] Comment on above: Performed By: #### L 100.0100 ####[facility] [address] [place], [address] Platelets (Bld) [#/Vol] 121 10*3/uL Low 150-450 [facility] Comment on above: Performed By: #### L 100.0100 ####[facility] [address] [place], [address] RBC (Bld) [#/Vol] 4.29 10*6/uL Low 4.6-6.2 [facility] Comment on above: Performed By: #### L 100.0100 ####[facility] [address] [place], [address] RDW SD 47.7 fl High 35.1-43.9 [facility] Comment on above: Performed By: #### L 100.0100 ####[facility] [address] [place], [address] WBC (Bld) [#/Vol] 7.4 10*3/uL Normal 4.4-11.0 [facility] Comment on above: Performed By: #### L 100.0100 ####[facility] [address] [place], [address] Carbon dioxide, total [Moles /volume] in Central venous bloodOrdered By: Danita Spaulding on 09-17-2024 CO2 [Moles/Vol] 28.1 mmol/L 21.0-32.0 [facility] Chloride assayOrdered By: Cheri Spaulding on 09-17-2024 Chloride [Moles/Vol] 103 mmol/L 98-108 [facility] Eosinophil percentageOrdered By: Danita Spaulding on 09-17-2024 Eosinophils/100 WBC (Bld) 1.2 % 0-5 [facility] Erythrocyte distribution wid th ratioOrdered By: Danita Spaulding on 09-17-2024 Erythrocyte distribution width (RBC) [Ratio] 13.2 % 11.6-14.6 [facility] Erythrocyte distribution wid th standard deviationOrdered By: Danita Spaulding on 09-17-2024 Erythrocyte distribution width (RBC) [Ratio] 47.7 fl High 35.1-43.9 [facility] Glomerular filtration rate ( GFR) estimation/1.73 sq m using serum, plasma, or whole bOrdered By: Danita Spaulding on 09-17-2024 GFR/1.73 sq M.predicted among non-blacks MDRD (S/P/Bld) [Vol rate/Area] 87 mL/min/{1.73_m2} >60 [facility] Comment on above: mL/min/1.73m2 CKD-EP I Creatinine Equation (2020) Hematocrit Auto (Bld) [Volum e fraction]Ordered By: Danita Spaulding on 09-17-2024 Hematocrit (Bld) [Volume fraction] 41.8 % 40-54 [facility] Hemoglobin measurementOrdere d By: Danita Spaulding on 09-17-2024 Hemoglobin (Bld) [Mass/Vol] 13.6 g/dL 13.0-16.5 [facility] Immature granulocytes/100 WB C Auto (Bld)Ordered By: Danita Spaulding on 09-17-2024 Immature granulocytes/100 WBC (Bld) 0.300 % 0.0-0.9 [facility] Comment on above: IG% - Immature Granu locytes (promyelocytes, myelocytes and metamyelocytes) > 1% indicates that a LEFT SHIFT is Present. MCV (mean corpuscular volume ) determinationOrdered By: Danita Spaulding on 09-17-2024 MCV (RBC) [Entitic vol] 97.4 fL High 80-94 [facility] Mean corpuscular hemoglobin (MCH) determinationOrdered By: Danita Spaulding on 09-17-2024 MCH (RBC) [Entitic mass] 31.7 pg 27.0-32.0 [facility] Mean corpuscular hemoglobin concentration (MCHC) determinationOrdered By: Danita Spaulding on 09-17-2024 MCHC (RBC) [Mass/Vol] 32.5 g/dL 32-36 [facility] Mean platelet volume determi nationOrdered By: Danita Spaulding on 09-17-2024 Platelet mean volume (Bld) [Entitic vol] 11.9 fL 6.2-12.0 [facility] Monocyte percentageOrdered B y: Danita Spaulding on 09-17-2024 Monocytes/100 WBC (Bld) 8.0 % 0-10 [facility] Neutrophil percentageOrdered By: Danita Spaulding on 09-17-2024 Neutrophils/100 WBC (Bld) 77.9 % High 47-70 [facility] Nucleated red blood cell per centageOrdered By: Danita Spaulding on 09-17-2024 Nucleated RBC/100 WBC (Bld) [Ratio] 0 % 0-5 [facility] Phosphoruson 09-17-2024 Phosphate [Mass/Vol] 3.0 mg/dL Normal 2.7-4.5 [facility] Comment on above: Performed By: #### L 500.2500, L501.2300 ####[facility] [address] [place], [address] Platelet countOrdered By: Cheri Spaulding on 09-17-2024 Platelets (Bld) [#/Vol] 121 10*3/uL Low 150-450 [facility] Potassium measurement (mass/ volume)Ordered By: Danita Spaulding on 09-17-2024 Potassium (Unsp spec) [Mass/Vol] 4.3 mmol/L 3.3-5.1 [facility] RBC Auto (Bld) [#/Vol]Ordere d By: Danita Spaulding on 09-17-2024 RBC (Bld) [#/Vol] 4.29 10*6/uL Low 4.6-6.2 [facility] Serum creatinine measurement (mass/volume)Ordered By: Danita Spaulding on 09-17-2024 Creatinine [Mass/Vol] 0.96 mg/dL 0.70-1.20 [facility] Serum glucose measurement (m ass/volume)Ordered By: Danita Spaulding on 09-17-2024 Glucose [Mass/Vol] 101 mg/dL High 70-99 [facility] Serum or plasma calcium leona urement (mass/volume)Ordered By: Danita Spaulding on 09-17-2024 Calcium [Mass/Vol] 8.7 mg/dL 7.6-11.0 [facility] Serum or plasma urea nitroge n measurement (mass/volume)Ordered By: Danita Spaulding on 09-17-2024 Urea nitrogen [Mass/Vol] 12 mg/dL 4-19 [facility] Sodium levelOrdered By: Brandi Spaulding on 09-17-2024 Sodium [Moles/Vol] 139 mmol/L 133-145 [facility] Urine Cultureon 09-17-2024 URC Normal [facility] Comment on above: Performed By: #### M 100.2200 ####[facility] [address] [place], [address] White blood cell (WBC) count Ordered By: Danita Spaulding on 09-17-2024 WBC (Bld) [#/Vol] 7.4 10*3/uL 4.4-11.0 [facility] Bilirubin, totalOrdered By: Nikolai Plaza on 09-16-2024 Bilirubin [Mass/Vol] 1.00 mg/dL 0.00-1.30 [facility] CBC W/Diff, Automatedon 08-20 Absolute Lymph 0.99 X10 3/uL Normal 0.83-4.51 [facility] Comment on above: Performed By: #### L 100.0100, L501.2300, L500.4050 ####[facility] [address] [place], [address] Absolute Neut 8.2 X10 3/uL High 2.0-7.7 [facility] Comment on above: Performed By: #### L 100.0100, L501.2300, L500.4050 ####[facility] [address] [place], [address] Basophils/100 WBC (Bld) 0.3 % Normal 0-1 [facility] Comment on above: Performed By: #### L 100.0100, L501.2300, L500.4050 ####[facility] [address] [place], [address] Eosinophils/100 WBC (Bld) 0.7 % Normal 0-5 [facility] Comment on above: Performed By: #### L 100.0100, L501.2300, L500.4050 ####[facility] [address] [place], [address] Erythrocyte distribution width (RBC) [Ratio] 13.3 % Normal 11.6-14.6 [facility] Comment on above: Performed By: #### L 100.0100, L501.2300, L500.4050 ####[facility] [address] [place], [address] Hematocrit (Bld) [Volume fraction] 41.8 % Normal 40-54 [facility] Comment on above: Performed By: #### L 100.0100, L501.2300, L500.4050 ####[facility] [address] [place], [address] Hemoglobin (Bld) [Mass/Vol] 13.6 g/dL Normal 13.0-16.5 [facility] Comment on above: Performed By: #### L 100.0100, L501.2300, L500.4050 ####[facility] [address] [place], [address] IG% 0.400 Normal 0.0-0.9 [facility] Comment on above: Result Comment: IG% - Immature Granulocytes (promyelocytes, myelocytes andmetamyelocytes) > 1% indicates that a LEFT SHIFT is Present. Performed By: #### L 100.0100, L501.2300, L500.4050 ####[facility] [address] [place], [address] Lymphocytes/100 WBC (Bld) 9.8 % Low 19-41 [facility] Comment on above: Performed By: #### L 100.0100, L501.2300, L500.4050 ####[facility] [address] [place], [address] MCH (RBC) [Entitic mass] 32.0 pg Normal 27.0-32.0 [facility] Comment on above: Performed By: #### L 100.0100, L501.2300, L500.4050 ####[facility] [address] [place], [address] MCHC (RBC) [Mass/Vol] 32.5 g/dL Normal 32-36 [facility] Comment on above: Performed By: #### L 100.0100, L501.2300, L500.4050 ####[facility] [address] [place], [address] MCV (RBC) [Entitic vol] 98.4 fL High 80-94 [facility] Comment on above: Performed By: #### L 100.0100, L501.2300, L500.4050 ####[facility] [address] [place], [address] Monocytes/100 WBC (Bld) 7.8 % Normal 0-10 [facility] Comment on above: Performed By: #### L 100.0100, L501.2300, L500.4050 ####[facility] [address] [place], [address] Neutrophils/100 WBC (Bld) 81.0 % High 47-70 [facility] Comment on above: Performed By: #### L 100.0100, L501.2300, L500.4050 ####[facility] [address] [place], [address] Nucleated RBC (Bld) [#/Vol] 0 10*3/uL Normal 0-5 [facility] Comment on above: Performed By: #### L 100.0100, L501.2300, L500.4050 ####[facility] [address] [place], [address] Platelet mean volume (Bld) [Entitic vol] 11.9 fL Normal 6.2-12.0 [facility] Comment on above: Performed By: #### L 100.0100, L501.2300, L500.4050 ####[facility] [address] [place], [address] Platelets (Bld) [#/Vol] 111 10*3/uL Low 150-450 [facility] Comment on above: Performed By: #### L 100.0100, L501.2300, L500.4050 ####[facility] [address] [place], [address] RBC (Bld) [#/Vol] 4.25 10*6/uL Low 4.6-6.2 [facility] Comment on above: Performed By: #### L 100.0100, L501.2300, L500.4050 ####[facility] [address] [place], [address] RDW SD 48.2 fl High 35.1-43.9 [facility] Comment on above: Performed By: #### L 100.0100, L501.2300, L500.4050 ####[facility] [address] [place], [address] WBC (Bld) [#/Vol] 10.1 10*3/uL Normal 4.4-11.0 [facility] Comment on above: Performed By: #### L 100.0100, L501.2300, L500.4050 ####[facility] [address] [place], [address] Comprehensive Metabolic Prof [facility] 09-16-2024 Albumin [Mass/Vol] 3.7 g/dL Normal 3.4-4.8 [facility] Comment on above: Performed By: #### L 100.0100, L501.2300, L500.4050 ####[facility] [address] [place], [address] Albumin/Globulin [Mass ratio] 1.3 {ratio} Normal 0.9-2.4 [facility] Comment on above: Performed By: #### L 100.0100, L501.2300, L500.4050 ####[facility] [address] [place], [address] ALK PHOS 64 U/L Normal 40-129 [facility] Comment on above: Performed By: #### L 100.0100, L501.2300, L500.4050 ####[facility] [address] [place], [address] ALT [Catalytic activity/Vol] 16 U/L Normal <=46 [facility] Comment on above: Performed By: #### L 100.0100, L501.2300, L500.4050 ####[facility] [address] [place], [address] AST [Catalytic activity/Vol] 28 U/L Normal <=37 [facility] Comment on above: Performed By: #### L 100.0100, L501.2300, L500.4050 ####[facility] [address] [place], [address] Bilirubin [Mass/Vol] 1.00 mg/dL Normal 0.00-1.30 [facility] Comment on above: Performed By: #### L 100.0100, L501.2300, L500.4050 ####[facility] [address] [place], [address] BUN/CRE 15.8 RATIO Normal 10-20 [facility] Comment on above: Performed By: #### L 100.0100, L501.2300, L500.4050 ####[facility] [address] [place], [address] Calcium [Mass/Vol] 8.6 mg/dL Normal 7.6-11.0 [facility] Comment on above: Performed By: #### L 100.0100, L501.2300, L500.4050 ####[facility] [address] [place], [address] Chloride [Moles/Vol] 103 mmol/L Normal 98-108 [facility] Comment on above: Performed By: #### L 100.0100, L501.2300, L500.4050 ####[facility] [address] [place], [address] CO2 [Moles/Vol] 27.0 mmol/L Normal 21.0-32.0 [facility] Comment on above: Performed By: #### L 100.0100, L501.2300, L500.4050 ####[facility] [address] [place], [address] Creatinine [Mass/Vol] 1.12 mg/dL Normal 0.70-1.20 [facility] Comment on above: Performed By: #### L 100.0100, L501.2300, L500.4050 ####[facility] [address] [place], [address] ECRCL 73.65 ml/min Normal 50-250 [facility] Comment on above: Performed By: #### L 100.0100, L501.2300, L500.4050 ####[facility] [address] [place], [address] GAP 9 Normal 5-15 [facility] Comment on above: Performed By: #### L 100.0100, L501.2300, L500.4050 ####[facility] [address] [place], [address] GFR/1.73 sq M.predicted among non-blacks MDRD (S/P/Bld) [Vol rate/Area] 72 mL/min/{1.73_m2} Normal >60 [facility] Comment on above: Result Comment: mL/m in/1.73m2 CKD-EPI Creatinine Equation (2020) Performed By: #### L 100.0100, L501.2300, L500.4050 ####[facility] [address] [place], [address] Globulin (S) [Mass/Vol] 2.9 g/dL Normal 2.2-4.2 [facility] Comment on above: Performed By: #### L 100.0100, L501.2300, L500.4050 ####[facility] [address] [place], [address] Glucose [Mass/Vol] 100 mg/dL High 70-99 [facility] Comment on above: Performed By: #### L 100.0100, L501.2300, L500.4050 ####[facility] [address] [place], [address] Potassium [Moles/Vol] 3.9 mmol/L Normal 3.3-5.1 [facility] Comment on above: Performed By: #### L 100.0100, L501.2300, L500.4050 ####[facility] [address] [place], [address] Sodium [Moles/Vol] 139 mmol/L Normal 133-145 [facility] Comment on above: Performed By: #### L 100.0100, L501.2300, L500.4050 ####[facility] [address] [place], [address] T PROT 6.5 g/dL Normal 5.9-8.4 [facility] Comment on above: Performed By: #### L 100.0100, L501.2300, L500.4050 ####[facility] [address] [place], [address] Urea nitrogen [Mass/Vol] 18 mg/dL Normal 4-19 [facility] Comment on above: Performed By: #### L 100.0100, L501.2300, L500.4050 ####[facility] [address] [place], [address] Echo Complete W/ Contraston 09-16-2024 Echo Complete W/ Contrast Normal [facility] Echocardiogram study reportO rdered By: Yasmany Pena on 09-16-2024 Study report [facility] [address] [place] [address] Echo Complete W/ Contrast 09/16/24 1128 MR#: [id number] Acct: [id number] Name: FREDDIE COLE Rep #:[id number] : 1960 64 From: Yasmany Dyer Attending Dr: Dr. Danita Spaulding DO S tatus: ADM IN Ordering Dr: Nikolai Freeman DO Date: 09/16/24 Location: U Sex: M C Admitted: 09/15/24 Reason For Study : GENERAL WEAKNESS Procedure This was a 2D Doppler, Color Flow transthoracic echocardiogram. The study was technically difficult. Exam performed portable in patient room. Left Ventricle Normal LV size. Left ventricular systolic function is normal. The left ventricular ejection fraction is 55 %. Stage 1 diastolic dysfunction. No regional wall motion abnormalities noted. Right Ventricle Normal RV size. Normal systolic function. Atria Normal left atrium. Normal right atrium. Mitral Valve Normal mitral valve. Tricuspid Valve Normal tricuspid valve. Aortic Valve Normal aortic valve. Pulmonic Valve Normal pulmonic valve. Great Vessels Normal aortic root. Pericardium/Pleural No pericardial effusion. Medication Diluted definity 1ml given slow IV push to enhance endocardial definition. MMode/2D Measurements & Calculations LVIDd: 4.7 cm IVSd: 1.1 cm Ao root diam: 3.3 cm LVIDs: 3.3 cm LVPWd: 1.1 cm RVDd: 3.6 cm FS: 29.7 % _ LAV(MOD-bp): 35.1 ml LVAd ap4: 35.1 cm2 SV(MOD-sp4): 72.3 ml LAV(MOD-bp) Indexed: 16.7 ml/m2 LVLd ap4: 8.5 cm SI(MOD-sp4): 34.4 ml/m2 LAV(MOD-sp2): 32.9 ml EDV(MOD-sp4): 120.8 ml LAV(MOD-sp4): 36.0 ml EDV(sp4-el): 123.5 ml LVAs ap4: 20.7 cm2 LVLs ap4: 7.1 cm ESV(MOD-sp4): 48.5 ml ESV(sp4-el): 51.0 ml EF(MOD-sp4): 59.9 % EF(sp4-el): 58.7 % SV(sp4-el): 72.5 ml LA A4 area: 14.8 cm2 LA dimension(2D): 3.1 cm RA A4 area: 14.0 cm2 TAPSE: 2.1 cm Time Measurements MV dec time: 0.23 sec Doppler Measurements & Calculations MV E max salvador: 92.9 cm/sec Lat Peak E' Salvador: 12.1 cm/sec Med Peak E' Salvador: 13.1 cm/sec MV A max salvador: 98.5 cm/sec E/E' lat: 7.6 E/E' med: 7.1 MV E/A: 0.94 Ao V2 max: 144.2 cm/sec LV V1 max: 120.3 cm/sec PA V2 max: 110.5 cm/sec Ao max P.3 mmHg LV V1 max P.8 mmHg ECHO/Echo Complete W/ Contrast Interpretation Summary Normal LV size. Left ventricular systolic function is normal. The left ventricular ejection fraction is 55 %. Stage 1 diastolic dysfunction. Contrast injection was performed. Ordering Physician: Nikolai Freeman Referring Physician: BIJU LOBO Performed By: Ksenia Hamm RDCS 09/16/24 1601 Date _ Yasmany Pena MD CC: Dr. Nikolai Freeman DO; Dr. Danita Spaulding DO; Dr. Biju Lobo DO ~ Date Dictated: 09/16/24 1128 Date Transcribed: 09/16/24 1600 Logistics Associate: Signed [facility] Work Phone: Laboratory - Chemistry and C hemistry - challengeOrdered By: Nikolai Plaza on 09-16-2024 AST [Catalytic activity/Vol] 28 U/L <38 [facility] Magnesiumon 09-16-2024 Magnesium [Mass/Vol] 2.0 mg/dL Normal 1.5-2.2 [facility] Comment on above: Performed By: #### L 501.5200, L501.9520 ####[facility] [address] [place], [address] Phosphoruson 09-16-2024 Phosphate [Mass/Vol] 3.0 mg/dL Normal 2.7-4.5 [facility] Comment on above: Performed By: #### L 100.0100, L501.2300, L500.4050 ####[facility] [address] [place], [address] Serum globulin measurementOr dered By: Nikolai Plaza on 09-16-2024 Globulin (S) [Mass/Vol] 2.9 g/dL 2.2-4.2 [facility] Serum or plasma alanine hollingsworth otransferase (ALT) measurementOrdered By: Nikolai Plaza on 09-16-2024 ALT [Catalytic activity/Vol] 16 U/L <47 [facility] Serum or plasma albumin leona urement (mass/volume)Ordered By: Nikolai Plaza on 09-16-2024 Albumin [Mass/Vol] 3.7 g/dL 3.4-4.8 [facility] Serum or plasma albumin/glob ulin mass ratioOrdered By: Nikolai Plaza on 09-16-2024 Albumin/Globulin [Mass ratio] 1.3 {ratio} 0.9-2.4 [facility] Serum or plasma alkaline dorian sphatase measurementOrdered By: Nikolai Plaza on 09-16-2024 ALP [Catalytic activity/Vol] 64 U/L 40-129 [facility] Thyroid Stim Hormone (TSH)on 09-16-2024 TSH 0.602 uIU/mL Normal 0.300-4.200 [facility] Comment on above: Performed By: #### L 501.5200, L501.9520 ####[facility] [address] [place], [address] Total proteinOrdered By: Kendall bryon Bola on 09-16-2024 Protein [Mass/Vol] 6.5 g/dL 5.9-8.4 [facility] Absolute lymphocyte countOrd ered By: Jose Oliveira on 09-15-2024 Lymphocytes Auto (Unsp spec) [#/Vol] 1.18 10*3/uL 0.83-4.51 [facility] Absolute neutrophil countOrd ered By: Jose Oliveira on 09-15-2024 Neutrophils (Bld) [#/Vol] 12.1 10*3/uL High 2.0-7.7 [facility] Activated partial thrombopla stin time (aPTT) in platelet poor plasma by coagulation aOrdered By: Jose Oliveira on 09-15-2024 aPTT Coag (PPP) [Time] 28.5 s 24.1-36.2 [facility] Anion gap in Serum or Plasma Ordered By: Jose Oliveira on 09-15-2024 Anion gap [Moles/Vol] 13 mmol/L 5-15 [facility] Automated lymphocyte count a s percentage of total leukocytesOrdered By: Jose Oliveira on 09-15-2024 Lymphocytes/100 WBC Auto (Unsp spec) 8.1 % Low 19-41 [facility] BUN/creatinine ratioOrdered By: Jose Oliveira on 09-15-2024 Urea nitrogen/Creatinine [Mass ratio] 16.1 mg/mg 10-20 [facility] Basophil percentageOrdered B y: Jose Oliveira on 09-15-2024 Basophils/100 WBC (Bld) 0.3 % 0-1 [facility] Bilirubin Test strip Ql (U)O rdered By: Jose Oliveira on 09-15-2024 Bilirubin Ql (U) Negative Negative [facility] Bilirubin, totalOrdered By: Jose Oliveira on 09-15-2024 Bilirubin [Mass/Vol] 1.17 mg/dL 0.00-1.30 [facility] Blood cultureOrdered By: Grace Oliveira on 09-15-2024 Bacteria identified Cx Nom (Bld) No growth in 5 days. [facility] Bacteria identified Cx Nom (Bld) No growth in 5 days. [facility] Brain/Head without Contrasto n 09-15-2024 Brain/Head without Contrast Normal [facility] CBC W/Diff, Automatedon 07-2 Absolute Lymph 1.18 X10 3/uL Normal 0.83-4.51 [facility] Comment on above: Performed By: #### L 100.0100, L500.4050 ####[facility] [address] [place], [address] Absolute Neut 12.1 X10 3/uL High 2.0-7.7 [facility] Comment on above: Performed By: #### L 100.0100, L500.4050 ####[facility] [address] [place], [address] Basophils/100 WBC (Bld) 0.3 % Normal 0-1 [facility] Comment on above: Performed By: #### L 100.0100, L500.4050 ####[facility] [address] [place], [address] Eosinophils/100 WBC (Bld) 0.1 % Normal 0-5 [facility] Comment on above: Performed By: #### L 100.0100, L500.4050 ####[facility] [address] [place], [address] Erythrocyte distribution width (RBC) [Ratio] 13.2 % Normal 11.6-14.6 [facility] Comment on above: Performed By: #### L 100.0100, L500.4050 ####[facility] [address] [place], [address] Hematocrit (Bld) [Volume fraction] 46.5 % Normal 40-54 [facility] Comment on above: Performed By: #### L 100.0100, L500.4050 ####[facility] [address] [place], [address] Hemoglobin (Bld) [Mass/Vol] 15.0 g/dL Normal 13.0-16.5 [facility] Comment on above: Performed By: #### L 100.0100, L500.4050 ####[facility] [address] [place], [address] IG% 0.500 Normal 0.0-0.9 [facility] Comment on above: Result Comment: IG% - Immature Granulocytes (promyelocytes, myelocytes andmetamyelocytes) > 1% indicates that a LEFT SHIFT is Present. Performed By: #### L 100.0100, L500.4050 ####[facility] [address] [place], [address] Lymphocytes/100 WBC (Bld) 8.1 % Low 19-41 [facility] Comment on above: Performed By: #### L 100.0100, L500.4050 ####[facility] [address] [place], [address] MCH (RBC) [Entitic mass] 31.8 pg Normal 27.0-32.0 [facility] Comment on above: Performed By: #### L 100.0100, L500.4050 ####[facility] [address] [place], [address] MCHC (RBC) [Mass/Vol] 32.3 g/dL Normal 32-36 [facility] Comment on above: Performed By: #### L 100.0100, L500.4050 ####[facility] [address] [place], [address] MCV (RBC) [Entitic vol] 98.5 fL High 80-94 [facility] Comment on above: Performed By: #### L 100.0100, L500.4050 ####[facility] [address] [place], [address] Monocytes/100 WBC (Bld) 8.0 % Normal 0-10 [facility] Comment on above: Performed By: #### L 100.0100, L500.4050 ####[facility] [address] [place], [address] Neutrophils/100 WBC (Bld) 83.0 % High 47-70 [facility] Comment on above: Performed By: #### L 100.0100, L500.4050 ####[facility] [address] [place], [address] Nucleated RBC (Bld) [#/Vol] 0 10*3/uL Normal 0-5 [facility] Comment on above: Performed By: #### L 100.0100, L500.4050 ####[facility] [address] [place], [address] Platelet mean volume (Bld) [Entitic vol] 11.7 fL Normal 6.2-12.0 [facility] Comment on above: Performed By: #### L 100.0100, L500.4050 ####[facility] [address] [place], [address] Platelets (Bld) [#/Vol] 130 10*3/uL Low 150-450 [facility] Comment on above: Performed By: #### L 100.0100, L500.4050 ####[facility] [address] [place], [address] RBC (Bld) [#/Vol] 4.72 10*6/uL Normal 4.6-6.2 [facility] Comment on above: Performed By: #### L 100.0100, L500.4050 ####[facility] [address] [place], [address] RDW SD 48.4 fl High 35.1-43.9 [facility] Comment on above: Performed By: #### L 100.0100, L500.4050 ####[facility] [address] [place], [address] WBC (Bld) [#/Vol] 14.5 10*3/uL High 4.4-11.0 [facility] Comment on above: Performed By: #### L 100.0100, L500.4050 ####[facility] [address] [place], [address] Carbon dioxide, total [Moles /volume] in Central venous bloodOrdered By: Jose Oliveira on 09-15-2024 CO2 [Moles/Vol] 24.4 mmol/L 21.0-32.0 [facility] Chest PA and Lateralon 09-15 Chest PA and Lateral Normal [facility] Chest without Contraston Chest without Contrast Normal [facility] Chloride assayOrdered By: Jabari Oliveira on 09-15-2024 Chloride [Moles/Vol] 99 mmol/L 98-108 [facility] Comprehensive Metabolic Prof ilon 09-15-2024 Albumin [Mass/Vol] 4.0 g/dL Normal 3.4-4.8 [facility] Comment on above: Order Comment: Blood cultures x2, from two different sites Performed By: #### L 501.2450, L500.4050, L300.4310, L501.4021, L300.3900, L503.7505, M200.1000, L503.6005 ####[facility] [address] [place], [address] Albumin/Globulin [Mass ratio] 1.2 {ratio} Normal 0.9-2.4 [facility] Comment on above: Order Comment: Blood cultures x2, from two different sites Performed By: #### L 501.2450, L500.4050, L300.4310, L501.4021, L300.3900, L503.7505, M200.1000, L503.6005 ####[facility] [address] [place], [address] ALK PHOS 72 U/L Normal 40-129 [facility] Comment on above: Order Comment: Blood cultures x2, from two different sites Performed By: #### L 501.2450, L500.4050, L300.4310, L501.4021, L300.3900, L503.7505, M200.1000, L503.6005 ####[facility] [address] [place], [address] ALT [Catalytic activity/Vol] 6 U/L Normal <=46 [facility] Comment on above: Order Comment: Blood cultures x2, from two different sites Performed By: #### L 501.2450, L500.4050, L300.4310, L501.4021, L300.3900, L503.7505, M200.1000, L503.6005 ####[facility] [address] [place], [address] AST [Catalytic activity/Vol] 34 U/L Normal <=37 [facility] Comment on above: Order Comment: Blood cultures x2, from two different sites Performed By: #### L 501.2450, L500.4050, L300.4310, L501.4021, L300.3900, L503.7505, M200.1000, L503.6005 ####[facility] [address] [place], [address] Bilirubin [Mass/Vol] 1.17 mg/dL Normal 0.00-1.30 [facility] Comment on above: Order Comment: Blood cultures x2, from two different sites Performed By: #### L 501.2450, L500.4050, L300.4310, L501.4021, L300.3900, L503.7505, M200.1000, L503.6005 ####[facility] [address] [place], [address] BUN/CRE 16.1 RATIO Normal 10-20 [facility] Comment on above: Order Comment: Blood cultures x2, from two different sites Performed By: #### L 501.2450, L500.4050, L300.4310, L501.4021, L300.3900, L503.7505, M200.1000, L503.6005 ####[facility] [address] [place], [address] Calcium [Mass/Vol] 9.3 mg/dL Normal 7.6-11.0 [facility] Comment on above: Order Comment: Blood cultures x2, from two different sites Performed By: #### L 501.2450, L500.4050, L300.4310, L501.4021, L300.3900, L503.7505, M200.1000, L503.6005 ####[facility] [address] [place], [address] Chloride [Moles/Vol] 99 mmol/L Normal 98-108 [facility] Comment on above: Order Comment: Blood cultures x2, from two different sites Performed By: #### L 501.2450, L500.4050, L300.4310, L501.4021, L300.3900, L503.7505, M200.1000, L503.6005 ####[facility] [address] [place], [address] CO2 [Moles/Vol] 24.4 mmol/L Normal 21.0-32.0 [facility] Comment on above: Order Comment: Blood cultures x2, from two different sites Performed By: #### L 501.2450, L500.4050, L300.4310, L501.4021, L300.3900, L503.7505, M200.1000, L503.6005 ####[facility] [address] [place], [address] Creatinine [Mass/Vol] 1.39 mg/dL High 0.70-1.20 [facility] Comment on above: Order Comment: Blood cultures x2, from two different sites Performed By: #### L 501.2450, L500.4050, L300.4310, L501.4021, L300.3900, L503.7505, M200.1000, L503.6005 ####[facility] [address] [place], [address] ECRCL 59.40 ml/min Normal 50-250 [facility] Comment on above: Order Comment: Blood cultures x2, from two different sites Performed By: #### L 501.2450, L500.4050, L300.4310, L501.4021, L300.3900, L503.7505, M200.1000, L503.6005 ####[facility] [address] [place], [address] GAP 13 Normal 5-15 [facility] Comment on above: Order Comment: Blood cultures x2, from two different sites Performed By: #### L 501.2450, L500.4050, L300.4310, L501.4021, L300.3900, L503.7505, M200.1000, L503.6005 ####[facility] [address] [place], [address] GFR/1.73 sq M.predicted among non-blacks MDRD (S/P/Bld) [Vol rate/Area] 56 mL/min/{1.73_m2} Low >60 [facility] Comment on above: Order Comment: Blood cultures x2, from two different sites Result Comment: mL/m in/1.73m2 CKD-EPI Creatinine Equation (2020) Performed By: #### L 501.2450, L500.4050, L300.4310, L501.4021, L300.3900, L503.7505, M200.1000, L503.6005 ####[facility] [address] [place], [place], [id number]) Globulin (S) [Mass/Vol] 3.4 g/dL Normal 2.2-4.2 [facility] Comment on above: Order Comment: Blood cultures x2, from two different sites Performed By: #### L 501.2450, L500.4050, L300.4310, L501.4021, L300.3900, L503.7505, M200.1000, L503.6005 ####[facility] [address] [place], [address] Glucose [Mass/Vol] 109 mg/dL High 70-99 [facility] Comment on above: Order Comment: Blood cultures x2, from two different sites Performed By: #### L 501.2450, L500.4050, L300.4310, L501.4021, L300.3900, L503.7505, M200.1000, L503.6005 ####[facility] [address] [place], [address] Potassium [Moles/Vol] 4.1 mmol/L Normal 3.3-5.1 [facility] Comment on above: Order Comment: Blood cultures x2, from two different sites Performed By: #### L 501.2450, L500.4050, L300.4310, L501.4021, L300.3900, L503.7505, M200.1000, L503.6005 ####[facility] [address] [place], [address] Sodium [Moles/Vol] 137 mmol/L Normal 133-145 [facility] Comment on above: Order Comment: Blood cultures x2, from two different sites Performed By: #### L 501.2450, L500.4050, L300.4310, L501.4021, L300.3900, L503.7505, M200.1000, L503.6005 ####[facility] [address] [place], [address] T PROT 7.4 g/dL Normal 5.9-8.4 [facility] Comment on above: Order Comment: Blood cultures x2, from two different sites Performed By: #### L 501.2450, L500.4050, L300.4310, L501.4021, L300.3900, L503.7505, M200.1000, L503.6005 ####[facility] [address] [place], [address] Urea nitrogen [Mass/Vol] 22 mg/dL High 4-19 [facility] Comment on above: Order Comment: Blood cultures x2, from two different sites Performed By: #### L 501.2450, L500.4050, L300.4310, L501.4021, L300.3900, L503.7505, M200.1000, L503.6005 ####[facility] [address] [place], [address] ALB Normal 3.4-4.8 [facility] Comment on above: Result Comment: ADDE D TO TROPT Performed By: #### L 100.0100, L500.4050 ####[facility] [address] [place], [address] ALK PHOS Normal 40-129 [facility] Comment on above: Result Comment: ADDE D TO TROPT Performed By: #### L 100.0100, L500.4050 ####[facility] [address] [place], [address] ALT Normal <=46 [facility] Comment on above: Result Comment: ADDE D TO TROPT Performed By: #### L 100.0100, L500.4050 ####[facility] [address] [place], [address] AST Normal <=37 [facility] Comment on above: Result Comment: ADDE D TO TROPT Performed By: #### L 100.0100, L500.4050 ####[facility] [address] [place], [address] BUN Normal 4-19 [facility] Comment on above: Result Comment: ADDE D TO TROPT Performed By: #### L 100.0100, L500.4050 ####[facility] [address] [place], [address] BUN/CRE Normal 10-20 [facility] Comment on above: Result Comment: ADDE D TO TROPT Performed By: #### L 100.0100, L500.4050 ####[facility] [address] [place], [address] Calcium Normal 7.6-11.0 [facility] Comment on above: Result Comment: ADDE D TO TROPT Performed By: #### L 100.0100, L500.4050 ####[facility] [address] [place], [address] CL Normal 98-108 [facility] Comment on above: Result Comment: ADDE D TO TROPT Performed By: #### L 100.0100, L500.4050 ####[facility] [address] [place], [address] CO2 Normal 21.0-32.0 [facility] Comment on above: Result Comment: ADDE D TO TROPT Performed By: #### L 100.0100, L500.4050 ####[facility] [address] [place], [address] CREAT,SERUM Normal 0.70-1.20 [facility] Comment on above: Result Comment: ADDE D TO TROPT Performed By: #### L 100.0100, L500.4050 ####[facility] [address] [place], [address] eGFR Normal >60 [facility] Comment on above: Result Comment: ADDE D TO TROPT Performed By: #### L 100.0100, L500.4050 ####[facility] [address] [place], [address] GAP Normal 5-15 [facility] Comment on above: Result Comment: ADDE D TO TROPT Performed By: #### L 100.0100, L500.4050 ####[facility] [address] [place], [address] GLU Normal 70-99 [facility] Comment on above: Result Comment: ADDE D TO TROPT Performed By: #### L 100.0100, L500.4050 ####[facility] [address] [place], [address] Potassium Normal 3.3-5.1 [facility] Comment on above: Result Comment: ADDE D TO TROPT Performed By: #### L 100.0100, L500.4050 ####[facility] [address] [place], [address] T BILI Normal 0.00-1.30 [facility] Comment on above: Result Comment: ADDE D TO TROPT Performed By: #### L 100.0100, L500.4050 ####[facility] [address] [place], [address] T PROT Normal 5.9-8.4 [facility] Comment on above: Result Comment: ADDE D TO TROPT Performed By: #### L 100.0100, L500.4050 ####[facility] [address] [place], [address] Comprehensive Metabolic Profil Normal 133-145 [facility] Comment on above: Result Comment: ADDE D TO TROPT Performed By: #### L 100.0100, L500.4050 ####[facility] [address] [place], [address] Emergency Department Summary on 09-15-2024 Emergency Department Summary Normal [facility] Eosinophil percentageOrdered By: Jose Oliveira on 09-15-2024 Eosinophils/100 WBC (Bld) 0.1 % 0-5 [facility] Erythrocyte distribution wid th ratioOrdered By: Jose Oliveira on 09-15-2024 Erythrocyte distribution width (RBC) [Ratio] 13.2 % 11.6-14.6 [facility] Erythrocyte distribution wid th standard deviationOrdered By: Jose Oliveira on 09-15-2024 Erythrocyte distribution width (RBC) [Ratio] 48.4 fl High 35.1-43.9 [facility] Glomerular filtration rate ( GFR) estimation/1.73 sq m using serum, plasma, or whole bOrdered By: Joes Oliveira on 09-15-2024 GFR/1.73 sq M.predicted among non-blacks MDRD (S/P/Bld) [Vol rate/Area] 56 mL/min/{1.73_m2} Low >60 [facility] Comment on above: mL/min/1.73m2 CKD-EP I Creatinine Equation (2020) H AND P Exam - Hospitaliston 09-15-2024 H&P Exam - Hospitalist Normal [facility] Hematocrit Auto (Bld) [Volum e fraction]Ordered By: Jose Oliveira on 09-15-2024 Hematocrit (Bld) [Volume fraction] 46.5 % 40-54 [facility] Hemoglobin measurementOrdere d By: Jose Oliveira on 09-15-2024 Hemoglobin (Bld) [Mass/Vol] 15.0 g/dL 13.0-16.5 [facility] Hip uni 4+ views with Pelvis on 09-15-2024 Hip uni 4+ views with Pelvis Normal [facility] Immature granulocytes/100 WB C Auto (Bld)Ordered By: Jose Oliveira on 09-15-2024 Immature granulocytes/100 WBC (Bld) 0.500 % 0.0-0.9 [facility] Comment on above: IG% - Immature Granu locytes (promyelocytes, myelocytes and metamyelocytes) > 1% indicates that a LEFT SHIFT is Present. International normalized rat io (INR) calculationOrdered By: Joes Oliveira on 09-15-2024 INR Coag (Bld) [Relative time] 1.2 {INR} [facility] Ketones Test strip Ql (U)Ord ered By: Jose Oliveira on 09-15-2024 Ketones Ql (U) 5 mg/dl High Negative [facility] L501.4021on 09-15-2024 Trop T High Sen 47 ng/L High <=22 [facility] Comment on above: Performed By: #### L 501.2450, L500.4050, L300.4310, L501.4021, L300.3900, L503.7505, M200.1000, L503.6005 ####[facility] [address] [place], [place], [phone] Laboratory - Chemistry and C hemistry - challengeOrdered By: Josejesse Oliveira on 09-15-2024 AST [Catalytic activity/Vol] 34 U/L <38 [facility] Lactic Acidon 09-15-2024 Lactate [Moles/Vol] 1.1 mmol/L Normal 0.0-2.0 [facility] Comment on above: Order Comment: Y Performed By: #### L 501.2450, L500.4050, L300.4310, L501.4021, L300.3900, L503.7505, M200.1000, L503.6005 ####[facility] [address] [place], [address] Lactic acid measurementOrder ed By: Jose Oliveira on 09-15-2024 Lactate [Moles/Vol] 1.1 mmol/L 0.0-2.0 [facility] Lipaseon 09-15-2024 Lipase [Catalytic activity/Vol] 9 U/L Low 13-75 [facility] Comment on above: Result Comment: Gavin rao note:LIPASE revised reference range effective 22.New Lipase methodology. Expected to produce lower valuesthan the previous assay method.NEW Reference Range: 13 - 75 U/L Performed By: #### L 501.2450, L500.4050, L300.4310, L501.4021, L300.3900, L503.7505, M200.1000, L503.6005 ####[facility] [address] [place], [place], [phone] Lipase measurementOrdered By : Jose Oliveira on 09-15-2024 Lipase [Catalytic activity/Vol] 9 U/L Low 13-75 [facility] Comment on above: Please note:LIPASE r evised reference range effective 22. New Lipase methodology. Expected to produce lower values than the previous assay method. NEW Reference Range: 13 - 75 U/L MCV (mean corpuscular volume ) determinationOrdered By: Jose Oliveira on 09-15-2024 MCV (RBC) [Entitic vol] 98.5 fL High 80-94 [facility] Magnesium measurement (mass/ volume)Ordered By: Nikolai Plaza on 09-15-2024 Magnesium (Unsp spec) [Mass/Vol] 2.0 mg/dL 1.5-2.2 [facility] Mean corpuscular hemoglobin (MCH) determinationOrdered By: Jose Oliveira on 09-15-2024 MCH (RBC) [Entitic mass] 31.8 pg 27.0-32.0 [facility] Mean corpuscular hemoglobin concentration (MCHC) determinationOrdered By: Jose Oliveira on 09-15-2024 MCHC (RBC) [Mass/Vol] 32.3 g/dL 32-36 [facility] Mean platelet volume determi nationOrdered By: Jose Oliveira on 09-15-2024 Platelet mean volume (Bld) [Entitic vol] 11.7 fL 6.2-12.0 [facility] Microscopic analysis of urin e for red blood cells (RBC)Ordered By: Jose Oliveira on 09-15-2024 Microscopic analysis of urine for red blood cells (RBC) 0-5 SEEN /hpf 0-5 [facility] Monocyte percentageOrdered B y: Jose Oliveira on 09-15-2024 Monocytes/100 WBC (Bld) 8.0 % 0-10 [facility] Mucus LM Ql (Urine sed)Order ed By: Jose Oliveira on 09-15-2024 Mucus Ql (Urine sed) 0 SEEN /hpf [facility] Natriuretic peptide.B prohor mey N-Terminal [Mass/volume] in Serum or PlasmaOrdered By: Jose Oliveira on 09-15-2024 Natriuretic peptide.B prohormone N-Terminal [Mass/Vol] 938 pg/mL High <900 [facility] Comment on above: Heart Failure Unlike ly: < 300 pg/mLHeart Failure Likely< 50 Years: > 450 pg/mL50-75 Years: > 900 pg/mL>75 Years: > 1800 pg/mL Neutrophil percentageOrdered By: Jose Oliveira on 09-15-2024 Neutrophils/100 WBC (Bld) 83.0 % High 47-70 [facility] Nitrite Test strip Ql (U)Ord ered By: Jose Oliveira on 09-15-2024 Nitrite Ql (U) Positive High Negative [facility] Nucleated red blood cell per centageOrdered By: Jose Oliveira on 09-15-2024 Nucleated RBC/100 WBC (Bld) [Ratio] 0 % 0-5 [facility] Partial Thromboplast Timeon 09-15-2024 aPTT Coag (Bld) [Time] 28.5 s Normal 24.1-36.2 [facility] Comment on above: Performed By: #### L 501.2450, L500.4050, L300.4310, L501.4021, L300.3900, L503.7505, M200.1000, L503.6005 ####[facility] [address] [place], [place], [id number] Platelet countOrdered By: Jabari Oliveira on 09-15-2024 Platelets (Bld) [#/Vol] 130 10*3/uL Low 150-450 [facility] Potassium measurement (mass/ volume)Ordered By: Jose Oliveira on 09-15-2024 Potassium (Unsp spec) [Mass/Vol] 4.1 mmol/L 3.3-5.1 [facility] Pro- Brain NATRIURETIC PEPTI Daniel 09-15-2024 Natriuretic peptide B (Bld) [Mass/Vol] 938 pg/mL High <=900 [facility] Comment on above: Result Comment: Hear t Failure Unlikely: < 300 pg/mLHeart Failure Likely< 50 Years: > 450 pg/mL50-75 Years: > 900 pg/mL>75 Years: > 1800 pg/mL Performed By: #### L 501.2450, L500.4050, L300.4310, L501.4021, L300.3900, L503.7505, M200.1000, L503.6005 ####[facility] [address] [place], [place], [id number] Protein Test strip Ql (U)Ord ered By: Jose Oliveira on 09-15-2024 Protein Ql (U) 30 mg/dl High Negative [facility] Prothrombin Time w/INRon INR Coag (PPP) [Relative time] 1.2 {INR} Normal [facility] Comment on above: Performed By: #### L 501.2450, L500.4050, L300.4310, L501.4021, L300.3900, L503.7505, M200.1000, L503.6005 ####[facility] [address] [place], [place], [phone] PT Coag (PPP) [Time] 15.0 s High 11.7-14.9 [facility] Comment on above: Performed By: #### L 501.2450, L500.4050, L300.4310, L501.4021, L300.3900, L503.7505, M200.1000, L503.6005 ####[facility] [address] [place], [place], [id number] Prothrombin timeOrdered By: Jose Oliveira on 09-15-2024 PT Coag (PPP) [Time] 15.0 s High 11.7-14.9 [facility] RBC Auto (Bld) [#/Vol]Ordere d By: Jose Oliveira on 09-15-2024 RBC (Bld) [#/Vol] 4.72 10*6/uL 4.6-6.2 [facility] Serum creatinine measurement (mass/volume)Ordered By: Jose Oliveira on 09-15-2024 Creatinine [Mass/Vol] 1.39 mg/dL High 0.70-1.20 [facility] Serum globulin measurementOr dered By: Jose Oliveira on 09-15-2024 Globulin (S) [Mass/Vol] 3.4 g/dL 2.2-4.2 [facility] Serum glucose measurement (m ass/volume)Ordered By: Jose Oliveira on 09-15-2024 Glucose [Mass/Vol] 109 mg/dL High 70-99 [facility] Serum or plasma alanine hollingsworth otransferase (ALT) measurementOrdered By: Jose Oliveira on 09-15-2024 ALT [Catalytic activity/Vol] 6 U/L <47 [facility] Serum or plasma albumin leona urement (mass/volume)Ordered By: Jose Oliveira on 09-15-2024 Albumin [Mass/Vol] 4.0 g/dL 3.4-4.8 [facility] Serum or plasma albumin/glob ulin mass ratioOrdered By: Jose Oliveira on 09-15-2024 Albumin/Globulin [Mass ratio] 1.2 {ratio} 0.9-2.4 [facility] Serum or plasma alkaline dorian sphatase measurementOrdered By: Jose Oliveira on 09-15-2024 ALP [Catalytic activity/Vol] 72 U/L 40-129 [facility] Serum or plasma calcium leona urement (mass/volume)Ordered By: Jose Oliveira on 09-15-2024 Calcium [Mass/Vol] 9.3 mg/dL 7.6-11.0 [facility] Serum or plasma urea nitroge n measurement (mass/volume)Ordered By: Jose Oliveira on 09-15-2024 Urea nitrogen [Mass/Vol] 22 mg/dL High 4-19 [facility] Sodium levelOrdered By: Donnie Oliveira on 09-15-2024 Sodium [Moles/Vol] 137 mmol/L 133-145 [facility] Squamous epithelial cells de tection in urine sediment by light microscopyOrdered By: Jose Oliveira on 09-15-2024 Epithelial cells.squamous LM Ql (Urine sed) 0-5 SEEN /hpf 0-5 [facility] TSH DL <= 0.005 mIU/L QnOrde red By: Nikolai Plaza on 09-15-2024 TSH Qn 0.602 uIU/mL 0.300-4.200 [facility] Total proteinOrdered By: Grace Oliveira on 09-15-2024 Protein [Mass/Vol] 7.4 g/dL 5.9-8.4 [facility] Troponin T HS 2 HRon 025 Trop T High Sen 43 ng/L High <=22 [facility] Comment on above: Performed By: #### L 499.0042 ####[facility] [address] [place], [address] Troponin T HS 4 HRon 025 Trop T High Sen 43 ng/L High <=22 [facility] Comment on above: Performed By: #### L 499.0043 ####[facility] [address] [place], [address] Troponin T.cardiac [Mass/vol ume] in Serum or Plasma by High sensitivity methodOrdered By: Jose Oliveira on 09-15-2024 Troponin T.cardiac High sensitivity method [Mass/Vol] 43 ng/L High <22 [facility] Troponin T.cardiac High sensitivity method [Mass/Vol] 43 ng/L High <22 [facility] Troponin T.cardiac High sensitivity method [Mass/Vol] 47 ng/L High <22 [facility] Urinalysis, Completeon 09-15 EPI,SQUAMOUS 0-5 SEEN Normal 0-5 [facility] Comment on above: Order Comment: GRUPO TER SPECIMEN Performed By: #### L 400.0001 ####[facility] [address] [place], [address] RBC 0-5 SEEN Normal 0-5 [facility] Comment on above: Order Comment: GRUPO TER SPECIMEN Performed By: #### L 400.0001 ####[facility] [address] [place], [address] BACTERIA 4+ /hpf Normal None Seen [facility] Comment on above: Order Comment: GRUPO TER SPECIMEN Performed By: #### L 400.0001 ####[facility] [address] [place], [address] WBC >100 SEEN Normal 0-5 [facility] Comment on above: Order Comment: GRUPO TER SPECIMEN Performed By: #### L 400.0001 ####[facility] [address] [place], [place], [phone] Mucus Ql (Urine sed) 0 SEEN Normal [facility] Comment on above: Order Comment: GRUPO TER SPECIMEN Performed By: #### L 400.0001 ####[facility] [address] [place], [address] Urine clarityOrdered By: Grace Oliveira on 09-15-2024 Clarity (U) Sl. Cloudy Clear [facility] Urine color determinationOrd ered By: Jose Oliveira on 09-15-2024 Color (U) Yellow Yellow [facility] Urine cultureOrdered By: Grace Oliveira on 09-15-2024 Bacteria identified Cx Nom (U) Klebsiella pneumoniae sp pneum Abnormal [facility] Urine glucose detectionOrder ed By: Jose Oliveira on 09-15-2024 Glucose Ql (U) Normal mg/dl Normal [facility] Urine leukocyte esterase det ection by dipstickOrdered By: Jose Oliveira on 09-15-2024 Leukocyte esterase Test strip Ql (U) 500 /ul High Negative [facility] Urine pHOrdered By: Jose yarbrough on 09-15-2024 pH (U) 6.0 [pH] 5.0 - 8.0 [facility] Urine sediment bacteria coun t by microscopy (number/high power field)Ordered By: Jose Oliveira on 09-15-2024 Bacteria LM.HPF (Urine sed) [#/Area] 4 /[HPF] None Seen [facility] Urine specific gravity measu rementOrdered By: Jose Oliveira on 09-15-2024 Specific gravity (U) [Rel density] 1.015 1.002-1.030 [facility] Urine urobilinogen measureme ntOrdered By: Jose Oliveira on 09-15-2024 Urobilinogen Ql (U) Normal mg/dl Normal [facility] White blood cell (WBC) count Ordered By: Jose Oliveira on 07-29-2025 WBC (Bld) [#/Vol] 14.5 10*3/uL High 4.4-11.0 [facility] White blood cell countOrdere d By: Jose Oliveira on 09-15-2024 White blood cell count >100 SEEN /hpf 0-5 [facility] CO - History AND Physicalon 09-07-2024 CO - History & Physical Normal [facility] CO - Individual Treatment Pl anon 09-07-2024 CO - Individual Treatment Plan Normal [facility] Pulmonary Visit Reporton Pulmonary Visit Report Normal [facility] Chest without Contraston Chest without Contrast Normal [facility] Neurology Visit Reporton Neurology Visit Report Normal [facility] Pulmonary Visit Reporton Pulmonary Visit Report Normal [facility] Modified Barium Swallow Stud yon 07-10-2024 Modified Barium Swallow Study Normal [facility] 6 Minute Walk Teston 025 6 Minute Walk Test Normal [facility] Carotid Duplex Ultrasoundon 06-22-2024 Carotid Duplex Ultrasound Normal [facility] Duplex ultrasound of carotid artery reportOrdered By: Harrison Macario on 06-22-[address] [facility] [address] [place] [address] Carotid Duplex Ultrasound 06/22/24 1304 MR#: [id number] Acct: [id number] Name: FREDDIE COLE Rep #:[id number] : 1960 64 From: Harrison Dyer Attending Dr: Dr. Christian Hernandez MD Status: REG I Ordering Dr: Christian Hernandez MD Date: 06/22/24 Location: [facility] Sex: M C Admitted: Reason For Study [...] the left vertebral artery. Procedure Carotid Duplex 77272. This is a Carotid Duplex examination using [...] _ Harrison Macario MD CC: Dr. Biju Lobo DO; Dr. Christian Hernandez MD ~ Date Dictated: 06/22/24 1304 Date Transcribed: 06/22/241736 Logistics Associate: Signed [facility] Work Phone: Pulmonary Visit Reporton Pulmonary Visit Report Normal [facility] Neurology Visit Reporton Neurology Visit Report Normal [facility] Pulmonary Visit Reporton Pulmonary Visit Report Normal [facility] Comprehensive Metabolic Prof ilon 04-14-2024 Albumin [Mass/Vol] 3.9 g/dL Normal 3.2-5.0 [facility] Comment on above: Performed By: #### L 500.4050, L500.4100 ####[facility] [address] [place], [address] Albumin/Globulin [Mass ratio] 1.1 {ratio} Normal 0.9-2.4 [facility] Comment on above: Performed By: #### L 500.4050, L500.4100 ####[facility] [address] [place], [address] ALK P 81 U/L Normal 45-117 [facility] Comment on above: Performed By: #### L 500.4050, L500.4100 ####[facility] [address] [place], [address] ALT [Catalytic activity/Vol] 27 U/L Normal 16-61 [facility] Comment on above: Performed By: #### L 500.4050, L500.4100 ####[facility] [address] [place], [address] AST [Catalytic activity/Vol] 18 U/L Normal 15-37 [facility] Comment on above: Performed By: #### L 500.4050, L500.4100 ####[facility] [address] [place], [address] Bilirubin [Mass/Vol] 0.80 mg/dL Normal 0.20-1.00 [facility] Comment on above: Result Comment: For patients on eltrombopag therapy, use of Dimension [place] TBIL is not recommended. Performed By: #### L 500.4050, L500.4100 ####[facility] [address] [place], [address] BUN/CRE 18.9 RATIO Normal 10-20 [facility] Comment on above: Performed By: #### L 500.4050, L500.4100 ####[facility] [address] [place], [address] CA,Total 9.3 mg/dL Normal 8.5-10.1 [facility] Comment on above: Performed By: #### L 500.4050, L500.4100 ####[facility] [address] [place], [address] Chloride [Moles/Vol] 106 mmol/L Normal 98-107 [facility] Comment on above: Performed By: #### L 500.4050, L500.4100 ####[facility] [address] [place], [address] CO2 [Moles/Vol] 30.0 mmol/L Normal 21.0-32.0 [facility] Comment on above: Performed By: #### L 500.4050, L500.4100 ####[facility] [address] [place], [address] Creatinine [Mass/Vol] 0.95 mg/dL Normal 0.70-1.30 [facility] Comment on above: Result Comment: The validity of the calculated GFR GFRAA in patients over70 years has not been determined. Clinical correlation isessential. Performed By: #### L 500.4050, L500.4100 ####[facility] [address] [place], [address] EST GFR - AA 102 mL/min Normal >60 [facility] Comment on above: Result Comment: Afri can Slovenian GFR Calc Performed By: #### L 500.4050, L500.4100 ####[facility] [address] [place], [address] GAP 5 Normal 5-15 [facility] Comment on above: Performed By: #### L 500.4050, L500.4100 ####[facility] [address] [place], [address] GFR/1.73 sq M.predicted among non-blacks MDRD (S/P/Bld) [Vol rate/Area] 84 mL/min/{1.73_m2} Normal >60 [facility] Comment on above: Result Comment: Non- GFR Calc Performed By: #### L 500.4050, L500.4100 ####[facility] [address] [place], [address] Globulin (S) [Mass/Vol] 3.5 g/dL Normal 2.2-4.2 [facility] Comment on above: Performed By: #### L 500.4050, L500.4100 ####[facility] [address] [place], [address] Glucose [Mass/Vol] 95 mg/dL Normal 74-106 [facility] Comment on above: Performed By: #### L 500.4050, L500.4100 ####[facility] [address] [place], [address] Potassium [Moles/Vol] 4.2 mmol/L Normal 3.5-5.1 [facility] Comment on above: Performed By: #### L 500.4050, L500.4100 ####[facility] [address] [place], [address] Sodium [Moles/Vol] 141 mmol/L Normal 136-145 [facility] Comment on above: Performed By: #### L 500.4050, L500.4100 ####[facility] [address] [place], [address] T PROT 7.4 g/dL Normal 6.4-8.2 [facility] Comment on above: Performed By: #### L 500.4050, L500.4100 ####[facility] [address] [place], [address] Urea nitrogen [Mass/Vol] 18 mg/dL Normal 7-18 [facility] Comment on above: Performed By: #### L 500.4050, L500.4100 ####[facility] [address] [place], [address] Lipid Profileon 04-14-2024 Cholesterol [Mass/Vol] 137 mg/dL Normal 200 [facility] Comment on above: Result Comment: <200 mg/dL Desirable 200-240 mg/dL Borderline >240 mg/dL High Risk Performed By: #### L 500.4050, L500.4100 ####[facility] [address] [place], [address] Cholesterol in HDL [Mass/Vol] 64 mg/dL Normal [facility] Comment on above: Result Comment: The drugs N-Acetylcysteine and Metamizole may falselydepress this assay. Reference Range HDL <40 mg/dL Low HDL Cholesterol HDL >or= 60 mg/dL High HDL Cholesterol Performed By: #### L 500.4050, L500.4100 ####[facility] [address] [place], [address] Cholesterol in LDL [Mass/Vol] 56 mg/dL Normal 0-130 [facility] Comment on above: Performed By: #### L 500.4050, L500.4100 ####[facility] [address] [place], [place], [id number] Cholesterol in VLDL [Mass/Vol] 17 mg/dL Normal 5-40 [facility] Comment on above: Performed By: #### L 500.4050, L500.4100 ####[facility] [address] [place], [address] Triglyceride [Mass/Vol] 85 mg/dL Normal [facility] Comment on above: Result Comment: The drugs N-Acetylcysteine and Metamizole may falselydepress this assay.Serum Triglycerides Reference Interval Normal <150 mg/dL Borderline high 150 - 199 mg/dL High 200 - 499 mg/dL Very High > or = 500 mg/dL Performed By: #### L 500.4050, L500.4100 ####[facility] [address] [place], [place], [id number] Albumin to globulin ratioOrd ered By: Gilbert Hoang on 04-13-2024 Albumin/Globulin [Mass ratio] 1.1 {ratio} 0.9-2.4 [facility] Bilirubin, totalOrdered By: Gilbert Hoang on 04-13-2024 Bilirubin [Mass/Vol] 0.80 mg/dL 0.20-1.00 [facility] Comment on above: For patients on eltr ombopag therapy, use of Dimension [place] TBIL is not recommended. Blood urea nitrogen (BUN)/cr eatinine ratioOrdered By: Gilbert Hoang on 04-13-2024 Urea nitrogen/Creatinine [Mass ratio] 18.9 mg/mg 10-20 [facility] Carbon dioxide measurementOr dered By: Gilbert Hoang on 04-13-2024 CO2 [Moles/Vol] 30.0 mmol/L 21.0-32.0 [facility] Chloride measurementOrdered By: Gilbert Hoang on 04-13-2024 Chloride [Moles/Vol] 106 mmol/L 98-107 [facility] Estimated glomerular filtrat ion rate (GFR) AmericanOrdered By: Gilbert Hoang on 04-13-2024 Estimated GFR (MDRD) Amer 102 mL/min >60 [facility] Comment on above: GFR Calc Glomerular filtration rate ( GFR) estimationOrdered By: Gilbert Hoang on 04-13-2024 Estimated GFR (MDRD) Non-Af Amer 84 mL/min >60 [facility] Comment on above: Non- GFR Calc GFR/1.73 sq M.predicted among non-blacks MDRD (S/P/Bld) [Vol rate/Area] 84 mL/min/{1.73_m2} >60 [facility] Comment on above: Non- GFR Calc Glucose measurementOrdered B y: Gilbert Hoang on 04-13-2024 Glucose [Mass/Vol] 95 mg/dL 74-106 [facility] High density lipoprotein (HD L) measurementOrdered By: Gilbert Hoang on 04-13-2024 Cholesterol in HDL [Mass/Vol] 64 mg/dL >40 [facility] Comment on above: The drugs N-Acetylcy steine and Metamizole may falsely depress this assay. Reference Range HDL <40 mg/dL Low HDL Cholesterol HDL >or= 60 mg/dL High HDL Cholesterol Laboratory - Chemistry and C hemistry - challengeOrdered By: Gilbert Hoang on 04-13-2024 AST [Catalytic activity/Vol] 18 U/L 15-37 [facility] Low density lipoprotein (LDL ) cholesterol measurementOrdered By: Gilbert Hoang on 04-13-2024 Cholesterol in LDL [Mass/Vol] 56 mg/dL 0-130 [facility] Potassium measurementOrdered By: Gilbert Hoang on 04-13-2024 Potassium [Moles/Vol] 4.2 mmol/L 3.5-5.1 [facility] Serum anion gap measurementO rdered By: Gilbert Hoang on 04-13-2024 Anion gap [Moles/Vol] 5 mmol/L 5-15 [facility] Serum globulin measurementOr dered By: Gilbert Hoang on 04-13-2024 Globulin (S) [Mass/Vol] 3.5 g/dL 2.2-4.2 [facility] Serum or plasma alanine hollingsworth otransferase (ALT) measurementOrdered By: Gilbert Hoang on 04-13-2024 ALT [Catalytic activity/Vol] 27 U/L 16-61 [facility] Serum or plasma albumin leona urement (mass/volume)Ordered By: Gilbert Hoang on 04-13-2024 Albumin [Mass/Vol] 3.9 g/dL 3.2-5.0 [facility] Serum or plasma alkaline dorian sphatase measurementOrdered By: Gilbert Hoang on 04-13-2024 ALP [Catalytic activity/Vol] 81 U/L 45-117 [facility] Serum or plasma calcium leona urement (mass/volume)Ordered By: Gilbert Hoang on 04-13-2024 Calcium [Mass/Vol] 9.3 mg/dL 8.5-10.1 [facility] Serum or plasma cholesterol measurement (mass/volume)Ordered By: Gilbert Hoang on 04-13-2024 Cholesterol [Mass/Vol] 137 mg/dL <200 [facility] Comment on above: <200 mg/dL Desirable 200-240 mg/dL Borderline >240 mg/dL High Risk Serum or plasma creatinine m easurement (mass/volume)Ordered By: Gilbert Hoang on 04-13-2024 Creatinine [Mass/Vol] 0.95 mg/dL 0.70-1.30 [facility] Comment on above: The validity of the calculated GFR & GFRAA in patients over 70 years has not been determined. Clinical correlation is essential. Serum or plasma urea nitroge n measurement (mass/volume)Ordered By: Gilbert Hoang on 04-13-2024 Urea nitrogen [Mass/Vol] 18 mg/dL 7-18 [facility] Sodium levelOrdered By: Ramiro Hoang on 04-13-2024 Sodium [Moles/Vol] 141 mmol/L 136-145 [facility] Total proteinOrdered By: Christie Hoang on 04-13-2024 Protein [Mass/Vol] 7.4 g/dL 6.4-8.2 [facility] Triglycerides measurementOrd ered By: Gilbert Hoang on 04-13-2024 Triglyceride [Mass/Vol] 85 mg/dL <199 [facility] Comment on above: The drugs N-Acetylcy steine and Metamizole may falsely depress this assay.Serum Triglycerides Reference Interval Normal <150 mg/dL Borderline high 150 - 199 mg/dL High 200 - 499 mg/dL Very High > or = 500 mg/dL Very low density lipoprotein (VLDL) cholesterol measurementOrdered By: Gilbert Hoang on 04-13-2024 Very low density lipoprotein (VLDL) cholesterol measurement 17 mg/dL 5-40 [facility] VLDL Cholesterol 17 mg/dL 5-40 [facility] Cardiology Visit Reporton Cardiology Visit Report Normal [facility] Bilirubin Test strip Ql (U)O rdered By: Akbar Archuleta on 03-24-2024 Bilirubin Ql (U) Negative Negative [facility] Glucose Ql (U)Ordered By: Heidi Archuleta on 03-24-2024 Urine Glucose (UA) Normal mg/dl Normal [facility] Ketones Test strip Ql (U)Ord ered By: Akbar Archuleta on 03-24-2024 Ketones Ql (U) Negative Negative [facility] Nitrite Test strip Ql (U)Ord ered By: Akbar Archuleta on 03-24-2024 Nitrite Ql (U) Negative Negative [facility] Protein Test strip Ql (U)Ord ered By: Akbar Archuleta on 03-24-2024 Protein Ql (U) Negative Negative [facility] Urinalysis, Routine (Dipstic k)on 03-24-2024 BILIRUBIN URINE Negative Normal Negative [facility] Comment on above: Order Comment: Urine , Random Performed By: #### L 400.2010 ####[facility] [address] [place], [place], [id number] Clarity (U) Clear Normal Clear [facility] Comment on above: Order Comment: Urine , Random Performed By: #### L 400.2010 ####[facility] [address] [place], [place], [address] Color (U) Yellow Normal Yellow [facility] Comment on above: Order Comment: Urine , Random Performed By: #### L 400.2010 ####[facility] [address] [place], [address] GLUCOSE, UR Normal Normal Normal [facility] Comment on above: Order Comment: Urine , Random Performed By: #### L 400.2010 ####[facility] [address] [place], [address] KETONE UR Negative Normal Negative [facility] Comment on above: Order Comment: Urine , Random Performed By: #### L 400.2010 ####[facility] [address] [place], [address] LEUK ESTERASE Negative Normal Negative [facility] Comment on above: Order Comment: Urine , Random Performed By: #### L 400.2010 ####[facility] [address] [place], [address] Nitrite Ql (U) Negative Normal Negative [facility] Comment on above: Order Comment: Urine , Random Performed By: #### L 400.2010 ####[facility] [address] [place], [address] OCCULT BLOOD-UR Negative Normal Negative [facility] Comment on above: Order Comment: Urine , Random Performed By: #### L 400.2010 ####[facility] [address] [place], [address] pH UR 5.0 Normal 5.0 - 8.0 [facility] Comment on above: Order Comment: Urine , Random Performed By: #### L 400.2010 ####[facility] [address] [place], [address] PROT DIPSTX Negative Normal Negative [facility] Comment on above: Order Comment: Urine , Random Performed By: #### L 400.2010 ####[facility] [address] [place], [address] SP.GR. DIPSTX 1.025 Normal 1.002-1.030 [facility] Comment on above: Order Comment: Urine , Random Performed By: #### L 400.2010 ####[facility] [address] [place], [address] UROBILI Normal Normal Normal [facility] Comment on above: Order Comment: Urine , Random Performed By: #### L 400.2010 ####[facility] [address], [address] Urine blood detectionOrdered By: Akbar Archuleta on 03-24-2024 Urine Occult Blood Negative Negative [facility] Urine clarityOrdered By: Jeremias Archuleta on 03-24-2024 Clarity (U) Clear Clear [facility] Urine color determinationOrd ered By: Akbar Archuleta on 03-24-2024 Color (U) Yellow Yellow [facility] Urine glucose detectionOrder ed By: Akbar Archuleta on 03-24-2024 Glucose Ql (U) Normal mg/dl Normal [facility] Urine leukocyte esterase det ection by dipstickOrdered By: Akbar Archuleta on 03-24-2024 Leukocyte esterase Test strip Ql (U) Negative Negative [facility] Urine pHOrdered By: Akbar aggarwal on 03-24-2024 pH (U) 5.0 [pH] 5.0 - 8.0 [facility] Urine specific gravity measu rementOrdered By: Akbar Archuleta on 03-24-2024 Specific gravity (U) [Rel density] 1.025 1.002-1.030 [facility] Urine urobilinogen measureme ntOrdered By: Akbar Archuleta on 03-24-2024 Urobilinogen Ql (U) Normal mg/dl Normal [facility] Urobilinogen Ql (U)Ordered B y: Akbar Archuleta on 03-24-2024 Urine Urobilinogen Normal mg/dl Normal [facility] Neurology Visit Reporton Neurology Visit Report Normal [facility] Respiratory Cultureon 2024 RESPC Normal [facility] Comment on above: Performed By: #### M 100.2000, M100.2400 ####[facility] [address] [place], [place], [address] Gram Stainon 03-09-2024 GS Acceptable Specimen? Yes (<25 Epithelial cells per/lpf) Gram Stain 3+ White Blood Cells 1+ Gram positive cocci 1+ Gram negative diplococci No Epithelial cells 1+ Gram positive rods Normal [facility] Comment on above: Performed By: #### M 100.2000, M100.2400 ####[facility] [address] [facility] [place], [place], [id number] Chest PA and Lateralon 03-08 Chest PA and Lateral Normal [facility] Emergency Department Summary on 03-08-2024 Emergency Department Summary Normal [facility] Gram stainOrdered By: Brigitte Randall on 03-08-2024 Microscopic observation Gram stain Nom (Unsp spec) [facility] Microscopic observation Gram stain Nom (Unsp spec) [facility] Influenza virus A and B and SARS-CoV-2 (COVID-19) and Respiratory syncytial virus RNAOrdered By: Ramos Randall on 03-08-2024 SARS-CoV-2 (COVID-19) RNA YOLY+probe Ql (Unsp spec) Influenzae A Abnormal [facility] SARS-CoV-2 (COVID-19) RNA YOLY+probe Ql (Unsp spec) Influenzae A Abnormal [facility] M100.678on 03-08-2024 M100.678 Normal [facility] Comment on above: Performed By: #### M 100.678 ####[facility] [address] [facility] [place], [address] Microbial respiratory cultur eOrdered By: Ramos Randall on 03-08-2024 Microorganism identified Cx Nom (Unsp spec) Stenotrophomonas maltophilia Abnormal [facility] Microorganism identified Cx Nom (Unsp spec) Moraxella Catarrhalis Abnormal [facility] Microorganism identified Cx Nom (Unsp spec) Streptococcus pneumoniae Abnormal [facility] Microorganism identified Cx Nom (Unsp spec)Ordered By: Ramos Randall on 03-08-2024 Respiratory Culture Stenotrophomonas maltophilia Abnormal [facility] Respiratory Culture Moraxella Catarrhalis Abnormal [facility] Respiratory Culture Streptococcus pneumoniae Abnormal [facility] Office Visit Reporton 2023 Office Visit Report Normal [facility] Office Visit Reporton 2023 Office Visit Report Normal [facility] Office Visit Reporton 2023 Office Visit Report Normal [facility] Neurology Visit Reporton Neurology Visit Report Normal [facility] Respiratory Cultureon 2023 RESPC Mixed normal respira tory bobbi. No Haemophilus, Streptococcus pneumoniae, beta-hemolytic Streptococcus or Staphylococcus aureus isolated. Normal [facility] Comment on above: Performed By: #### M 100.2400, M100.2000 ####[facility] [address] [place], [address] Discharge Instructionon 10-19 Discharge Instruction Normal [facility] Basic Metabolic Profile (BMP )on 11-01-2023 BUN/CRE 19.7 RATIO Normal 10-20 [facility] Comment on above: Performed By: #### L 500.2500, L100.0500 ####[facility] [address] [place], [address] CA,Total 8.5 mg/dL Normal 8.5-10.1 [facility] Comment on above: Performed By: #### L 500.2500, L100.0500 ####[facility] [address] [place], [address] Chloride [Moles/Vol] 107 mmol/L Normal 98-107 [facility] Comment on above: Performed By: #### L 500.2500, L100.0500 ####[facility] [address] [place], [address] CO2 [Moles/Vol] 27.0 mmol/L Normal 21.0-32.0 [facility] Comment on above: Performed By: #### L 500.2500, L100.0500 ####[facility] [address] [place], [address] Creatinine [Mass/Vol] 0.81 mg/dL Normal 0.70-1.30 [facility] Comment on above: Result Comment: The validity of the calculated GFR GFRAA in patients over70 years has not been determined. Clinical correlation isessential. Performed By: #### L 500.2500, L100.0500 ####[facility] [address] [place], [address] ECRCL 100.33 ml/min Normal [facility] Comment on above: Performed By: #### L 500.2500, L100.0500 ####[facility] [address] [place], [address] EST GFR - AA 123 mL/min Normal >60 [facility] Comment on above: Result Comment: Afri can Slovenian GFR Calc Performed By: #### L 500.2500, L100.0500 ####[facility] [address] [place], [address] GAP 6 Normal 5-15 [facility] Comment on above: Performed By: #### L 500.2500, L100.0500 ####[facility] [address] [place], [address] GFR/1.73 sq M.predicted among non-blacks MDRD (S/P/Bld) [Vol rate/Area] 101 mL/min/{1.73_m2} Normal >60 [facility] Comment on above: Result Comment: Non- GFR Calc Performed By: #### L 500.2500, L100.0500 ####[facility] [address] [place], [address] Glucose [Mass/Vol] 100 mg/dL Normal 74-106 [facility] Comment on above: Result Comment: Fast ing Glucose result from 100 to 125 mg/dLsuggests IMPAIRED HOMEOSTASIS per A.D.A. criteria. Performed By: #### L 500.2500, L100.0500 ####[facility] [address] [place], [address] Potassium [Moles/Vol] 3.9 mmol/L Normal 3.5-5.1 [facility] Comment on above: Performed By: #### L 500.2500, L100.0500 ####[facility] [address] [place], [address] Sodium [Moles/Vol] 140 mmol/L Normal 136-145 [facility] Comment on above: Performed By: #### L 500.2500, L100.0500 ####[facility] [address] [place], [address] Urea nitrogen [Mass/Vol] 16 mg/dL Normal 7-18 [facility] Comment on above: Performed By: #### L 500.2500, L100.0500 ####[facility] [address] [place], [address] CBC-Complete Blood Cnt No Di ffon 11-01-2023 Erythrocyte distribution width (RBC) [Ratio] 14.1 % Normal 11.6-14.6 [facility] Comment on above: Performed By: #### L 500.2500, L100.0500 ####[facility] [address] [place], [address] Hematocrit (Bld) [Volume fraction] 42.9 % Normal 40-54 [facility] Comment on above: Performed By: #### L 500.2500, L100.0500 ####[facility] [address] [place], [address] Hemoglobin (Bld) [Mass/Vol] 13.8 g/dL Normal 13.0-16.5 [facility] Comment on above: Performed By: #### L 500.2500, L100.0500 ####[facility] [address] [place], [address] MCH (RBC) [Entitic mass] 30.5 pg Normal 27.0-32.0 [facility] Comment on above: Performed By: #### L 500.2500, L100.0500 ####[facility] [address] [place], [address] MCHC (RBC) [Mass/Vol] 32.2 g/dL Normal 32-36 [facility] Comment on above: Performed By: #### L 500.2500, L100.0500 ####[facility] [address] [place], [address] MCV (RBC) [Entitic vol] 94.9 fL High 80-94 [facility] Comment on above: Performed By: #### L 500.2500, L100.0500 ####[facility] [address] [place], [address] Platelet mean volume (Bld) [Entitic vol] 11.6 fL Normal 6.2-12.0 [facility] Comment on above: Performed By: #### L 500.2500, L100.0500 ####[facility] [address] [place], [address] Platelets (Bld) [#/Vol] 196 10*3/uL Normal 150-450 [facility] Comment on above: Performed By: #### L 500.2500, L100.0500 ####[facility] [address] [place], [address] RBC (Bld) [#/Vol] 4.52 10*6/uL Low 4.6-6.2 [facility] Comment on above: Performed By: #### L 500.2500, L100.0500 ####[facility] [address] [place], [address] RDW SD 49.2 fl High 35.1-43.9 [facility] Comment on above: Performed By: #### L 500.2500, L100.0500 ####[facility] [address] [place], [address] WBC (Bld) [#/Vol] 8.2 10*3/uL Normal 4.4-11.0 [facility] Comment on above: Performed By: #### L 500.2500, L100.0500 ####[facility] [address] [place], [address] Basic Metabolic Profile (BMP )on 10-31-2023 BUN/CRE 19.1 RATIO Normal 10-20 [facility] Comment on above: Performed By: #### L 501.2300, L500.2500, L501.5200 ####[facility] [address] [place], [address] CA,Total 8.5 mg/dL Normal 8.5-10.1 [facility] Comment on above: Performed By: #### L 501.2300, L500.2500, L501.5200 ####[facility] [address] [place], [address] Chloride [Moles/Vol] 106 mmol/L Normal 98-107 [facility] Comment on above: Performed By: #### L 501.2300, L500.2500, L501.5200 ####[facility] [address] [place], [address] CO2 [Moles/Vol] 28.0 mmol/L Normal 21.0-32.0 [facility] Comment on above: Performed By: #### L 501.2300, L500.2500, L501.5200 ####[facility] [address] [place], [address] Creatinine [Mass/Vol] 0.78 mg/dL Normal 0.70-1.30 [facility] Comment on above: Result Comment: The validity of the calculated GFR GFRAA in patients over70 years has not been determined. Clinical correlation isessential. Performed By: #### L 501.2300, L500.2500, L501.5200 ####[facility] [address] [place], [address] ECRCL 100.81 ml/min Normal [facility] Comment on above: Performed By: #### L 501.2300, L500.2500, L501.5200 ####[facility] [address] [place], [address] EST GFR - AA 128 mL/min Normal >60 [facility] Comment on above: Result Comment: Afri can Slovenian GFR Calc Performed By: #### L 501.2300, L500.2500, L501.5200 ####[facility] [address] [place], [address] GAP 3 Low 5-15 [facility] Comment on above: Performed By: #### L 501.2300, L500.2500, L501.5200 ####[facility] [address] [place], [address] GFR/1.73 sq M.predicted among non-blacks MDRD (S/P/Bld) [Vol rate/Area] 105 mL/min/{1.73_m2} Normal >60 [facility] Comment on above: Result Comment: Non- GFR Calc Performed By: #### L 501.2300, L500.2500, L501.5200 ####[facility] [address] [place], [address] Glucose [Mass/Vol] 116 mg/dL High 74-106 [facility] Comment on above: Result Comment: Fast ing Glucose result from 100 to 125 mg/dLsuggests IMPAIRED HOMEOSTASIS per A.D.A. criteria. Performed By: #### L 501.2300, L500.2500, L501.5200 ####[facility] [address] [place], [address] Potassium [Moles/Vol] 4.0 mmol/L Normal 3.5-5.1 [facility] Comment on above: Performed By: #### L 501.2300, L500.2500, L501.5200 ####[facility] [address] [place], [address] Sodium [Moles/Vol] 137 mmol/L Normal 136-145 [facility] Comment on above: Performed By: #### L 501.2300, L500.2500, L501.5200 ####[facility] [address] [place], [address] Urea nitrogen [Mass/Vol] 15 mg/dL Normal 7-18 [facility] Comment on above: Performed By: #### L 501.2300, L500.2500, L501.5200 ####[facility] [address] [place], [address] CBC W/Diff, Automatedon - 2-2023 Absolute Lymph 1.25 X10 3/uL Normal 0.83-4.51 [facility] Comment on above: Performed By: #### L 100.0100 ####[facility] [address] [place], [address] Absolute Neut 7.7 X10 3/uL Normal 2.0-7.7 [facility] Comment on above: Performed By: #### L 100.0100 ####[facility] [address] [place], [address] Basophils/100 WBC (Bld) 0.2 % Normal 0-1 [facility] Comment on above: Performed By: #### L 100.0100 ####[facility] [address] [place], [address] Eosinophils/100 WBC (Bld) 0.9 % Normal 0-5 [facility] Comment on above: Performed By: #### L 100.0100 ####[facility] [address] [place], [address] Erythrocyte distribution width (RBC) [Ratio] 13.8 % Normal 11.6-14.6 [facility] Comment on above: Performed By: #### L 100.0100 ####[facility] [address] [place], [address] Hematocrit (Bld) [Volume fraction] 41.9 % Normal 40-54 [facility] Comment on above: Performed By: #### L 100.0100 ####[facility] [address] [place], [address] Hemoglobin (Bld) [Mass/Vol] 13.5 g/dL Normal 13.0-16.5 [facility] Comment on above: Performed By: #### L 100.0100 ####[facility] [address] [place], [address] IG% 0.700 Normal 0.0-0.9 [facility] Comment on above: Result Comment: IG% - Immature Granulocytes (promyelocytes, myelocytes andmetamyelocytes) > 1% indicates that a LEFT SHIFT is Present. Performed By: #### L 100.0100 ####[facility] [address] [place], [address] Lymphocytes/100 WBC (Bld) 12.8 % Low 19-41 [facility] Comment on above: Performed By: #### L 100.0100 ####[facility] [address] [place], [address] MCH (RBC) [Entitic mass] 30.7 pg Normal 27.0-32.0 [facility] Comment on above: Performed By: #### L 100.0100 ####[facility] [address] [place], [address] MCHC (RBC) [Mass/Vol] 32.2 g/dL Normal 32-36 [facility] Comment on above: Performed By: #### L 100.0100 ####[facility] [address] [place], [address] MCV (RBC) [Entitic vol] 95.2 fL High 80-94 [facility] Comment on above: Performed By: #### L 100.0100 ####[facility] [address] [place], [address] Monocytes/100 WBC (Bld) 6.7 % Normal 0-10 [facility] Comment on above: Performed By: #### L 100.0100 ####[facility] [address] [place], [address] Neutrophils/100 WBC (Bld) 78.7 % High 47-70 [facility] Comment on above: Performed By: #### L 100.0100 ####[facility] [address] [place], [address] Nucleated RBC (Bld) [#/Vol] 0 10*3/uL Normal 0-5 [facility] Comment on above: Performed By: #### L 100.0100 ####[facility] [address] [place], [address] Platelet mean volume (Bld) [Entitic vol] 11.0 fL Normal 6.2-12.0 [facility] Comment on above: Performed By: #### L 100.0100 ####[facility] [address] [place], [address] Platelets (Bld) [#/Vol] 198 10*3/uL Normal 150-450 [facility] Comment on above: Performed By: #### L 100.0100 ####[facility] [address] [place], [address] RBC (Bld) [#/Vol] 4.40 10*6/uL Low 4.6-6.2 [facility] Comment on above: Performed By: #### L 100.0100 ####[facility] [address] [place], [address] RDW SD 48.5 fl High 35.1-43.9 [facility] Comment on above: Performed By: #### L 100.0100 ####[facility] [address] [place], [address] WBC (Bld) [#/Vol] 9.7 10*3/uL Normal 4.4-11.0 [facility] Comment on above: Performed By: #### L 100.0100 ####[facility] [address] [place], [address] Magnesiumon 10-31-2023 Magnesium [Mass/Vol] 2.3 mg/dL Normal 1.6-2.6 [facility] Comment on above: Performed By: #### L 501.2300, L500.2500, L501.5200 ####[facility] [address] [place], [address] Phosphoruson 10-31-2023 Phosphate [Mass/Vol] 3.2 mg/dL Normal 2.5-4.9 [facility] Comment on above: Performed By: #### L 501.2300, L500.2500, L501.5200 ####[facility] [address] [place], [address] CBC W/Diff, Automatedon 10-19 Absolute Lymph 1.07 X10 3/uL Normal 0.83-4.51 [facility] Comment on above: Performed By: #### L 501.9520, L500.4050, L501.2300, L501.5200, L100.0100 ####[facility] [address] [place], [address] Absolute Neut 6.3 X10 3/uL Normal 2.0-7.7 [facility] Comment on above: Performed By: #### L 501.9520, L500.4050, L501.2300, L501.5200, L100.0100 ####[facility] [address] [place], [address] Basophils/100 WBC (Bld) 0.1 % Normal 0-1 [facility] Comment on above: Performed By: #### L 501.9520, L500.4050, L501.2300, L501.5200, L100.0100 ####[facility] [address] [place], [address] Eosinophils/100 WBC (Bld) 0.8 % Normal 0-5 [facility] Comment on above: Performed By: #### L 501.9520, L500.4050, L501.2300, L501.5200, L100.0100 ####[facility] [address] [place], [address] Erythrocyte distribution width (RBC) [Ratio] 13.8 % Normal 11.6-14.6 [facility] Comment on above: Performed By: #### L 501.9520, L500.4050, L501.2300, L501.5200, L100.0100 ####[facility] [address] [place], [address] Hematocrit (Bld) [Volume fraction] 40.8 % Normal 40-54 [facility] Comment on above: Performed By: #### L 501.9520, L500.4050, L501.2300, L501.5200, L100.0100 ####[facility] [address] [place], [address] Hemoglobin (Bld) [Mass/Vol] 13.2 g/dL Normal 13.0-16.5 [facility] Comment on above: Performed By: #### L 501.9520, L500.4050, L501.2300, L501.5200, L100.0100 ####[facility] [address] [place], [address] IG% 0.900 Normal 0.0-0.9 [facility] Comment on above: Result Comment: IG% - Immature Granulocytes (promyelocytes, myelocytes andmetamyelocytes) > 1% indicates that a LEFT SHIFT is Present. Performed By: #### L 501.9520, L500.4050, L501.2300, L501.5200, L100.0100 ####[facility] [address] [place], [address] Lymphocytes/100 WBC (Bld) 13.5 % Low 19-41 [facility] Comment on above: Performed By: #### L 501.9520, L500.4050, L501.2300, L501.5200, L100.0100 ####[facility] [address] [place], [address] MCH (RBC) [Entitic mass] 30.6 pg Normal 27.0-32.0 [facility] Comment on above: Performed By: #### L 501.9520, L500.4050, L501.2300, L501.5200, L100.0100 ####[facility] [address] [place], [address] MCHC (RBC) [Mass/Vol] 32.4 g/dL Normal 32-36 [facility] Comment on above: Performed By: #### L 501.9520, L500.4050, L501.2300, L501.5200, L100.0100 ####[facility] [address] [place], [address] MCV (RBC) [Entitic vol] 94.4 fL High 80-94 [facility] Comment on above: Performed By: #### L 501.9520, L500.4050, L501.2300, L501.5200, L100.0100 ####[facility] [address] [place], [address] Monocytes/100 WBC (Bld) 5.9 % Normal 0-10 [facility] Comment on above: Performed By: #### L 501.9520, L500.4050, L501.2300, L501.5200, L100.0100 ####[facility] [address] [place], [address] Neutrophils/100 WBC (Bld) 78.8 % High 47-70 [facility] Comment on above: Performed By: #### L 501.9520, L500.4050, L501.2300, L501.5200, L100.0100 ####[facility] [address] [place], [address] Nucleated RBC (Bld) [#/Vol] 0 10*3/uL Normal 0-5 [facility] Comment on above: Performed By: #### L 501.9520, L500.4050, L501.2300, L501.5200, L100.0100 ####[facility] [address] [place], [address] Platelet mean volume (Bld) [Entitic vol] 10.8 fL Normal 6.2-12.0 [facility] Comment on above: Performed By: #### L 501.9520, L500.4050, L501.2300, L501.5200, L100.0100 ####[facility] [address] [place], [address] Platelets (Bld) [#/Vol] 210 10*3/uL Normal 150-450 [facility] Comment on above: Performed By: #### L 501.9520, L500.4050, L501.2300, L501.5200, L100.0100 ####[facility] [address] [place], [address] RBC (Bld) [#/Vol] 4.32 10*6/uL Low 4.6-6.2 [facility] Comment on above: Performed By: #### L 501.9520, L500.4050, L501.2300, L501.5200, L100.0100 ####[facility] [address] [place], [address] RDW SD 47.9 fl High 35.1-43.9 [facility] Comment on above: Performed By: #### L 501.9520, L500.4050, L501.2300, L501.5200, L100.0100 ####[facility] [address] [place], [address] WBC (Bld) [#/Vol] 8.0 10*3/uL Normal 4.4-11.0 [facility] Comment on above: Performed By: #### L 501.9520, L500.4050, L501.2300, L501.5200, L100.0100 ####[facility] [address] [place], [address] Comprehensive Metabolic [facility] 10-30-2023 Albumin [Mass/Vol] 2.8 g/dL Low 3.2-5.0 [facility] Comment on above: Performed By: #### L 501.9520, L500.4050, L501.2300, L501.5200, L100.0100 ####[facility] [address] [place], [address] Albumin/Globulin [Mass ratio] 1.0 {ratio} Normal 0.9-2.4 [facility] Comment on above: Performed By: #### L 501.9520, L500.4050, L501.2300, L501.5200, L100.0100 ####[facility] [address] [place], [address] ALK P 58 U/L Normal 45-117 [facility] Comment on above: Performed By: #### L 501.9520, L500.4050, L501.2300, L501.5200, L100.0100 ####[facility] [address] [place], [address] ALT [Catalytic activity/Vol] 12 U/L Low 16-61 [facility] Comment on above: Performed By: #### L 501.9520, L500.4050, L501.2300, L501.5200, L100.0100 ####[facility] [address] [place], [address] AST [Catalytic activity/Vol] 11 U/L Low 15-37 [facility] Comment on above: Performed By: #### L 501.9520, L500.4050, L501.2300, L501.5200, L100.0100 ####[facility] [address] [place], [address] Bilirubin [Mass/Vol] 1.00 mg/dL Normal 0.20-1.00 [facility] Comment on above: Result Comment: For patients on eltrombopag therapy, use of Dimension [place] TBIL is not recommended. Performed By: #### L 501.9520, L500.4050, L501.2300, L501.5200, L100.0100 ####[facility] [address] [place], [address] BUN/CRE 25.1 RATIO High 10-20 [facility] Comment on above: Performed By: #### L 501.9520, L500.4050, L501.2300, L501.5200, L100.0100 ####[facility] [address] [place], [address] CA,Total 8.3 mg/dL Low 8.5-10.1 [facility] Comment on above: Performed By: #### L 501.9520, L500.4050, L501.2300, L501.5200, L100.0100 ####[facility] [address] [place], [address] Chloride [Moles/Vol] 106 mmol/L Normal 98-107 [facility] Comment on above: Performed By: #### L 501.9520, L500.4050, L501.2300, L501.5200, L100.0100 ####[facility] [address] [place], [address] CO2 [Moles/Vol] 26.0 mmol/L Normal 21.0-32.0 [facility] Comment on above: Performed By: #### L 501.9520, L500.4050, L501.2300, L501.5200, L100.0100 ####[facility] [address] [place], [address] Creatinine [Mass/Vol] 0.84 mg/dL Normal 0.70-1.30 [facility] Comment on above: Result Comment: The validity of the calculated GFR GFRAA in patients over70 years has not been determined. Clinical correlation isessential. Performed By: #### L 501.9520, L500.4050, L501.2300, L501.5200, L100.0100 ####[facility] [address] [place], [address] ECRCL 87.67 ml/min Normal [facility] Comment on above: Performed By: #### L 501.9520, L500.4050, L501.2300, L501.5200, L100.0100 ####[facility] [address] [place], [address] EST GFR - AA 118 mL/min Normal >60 [facility] Comment on above: Result Comment: Afri can Slovenian GFR Calc Performed By: #### L 501.9520, L500.4050, L501.2300, L501.5200, L100.0100 ####[facility] [address] [place], [address] GAP 5 Normal 5-15 [facility] Comment on above: Performed By: #### L 501.9520, L500.4050, L501.2300, L501.5200, L100.0100 ####[facility] [address] [place], [address] GFR/1.73 sq M.predicted among non-blacks MDRD (S/P/Bld) [Vol rate/Area] 98 mL/min/{1.73_m2} Normal >60 [facility] Comment on above: Result Comment: Non- GFR Calc Performed By: #### L 501.9520, L500.4050, L501.2300, L501.5200, L100.0100 ####[facility] [address] [place], [address] Globulin (S) [Mass/Vol] 2.9 g/dL Normal 2.2-4.2 [facility] Comment on above: Performed By: #### L 501.9520, L500.4050, L501.2300, L501.5200, L100.0100 ####[facility] [address] [place], [address] Glucose [Mass/Vol] 106 mg/dL Normal 74-106 [facility] Comment on above: Result Comment: Fast ing Glucose result from 100 to 125 mg/dLsuggests IMPAIRED HOMEOSTASIS per A.D.A. criteria. Performed By: #### L 501.9520, L500.4050, L501.2300, L501.5200, L100.0100 ####[facility] [address] [place], [address] Potassium [Moles/Vol] 4.1 mmol/L Normal 3.5-5.1 [facility] Comment on above: Performed By: #### L 501.9520, L500.4050, L501.2300, L501.5200, L100.0100 ####[facility] [address] [place], [address] Sodium [Moles/Vol] 137 mmol/L Normal 136-145 [facility] Comment on above: Performed By: #### L 501.9520, L500.4050, L501.2300, L501.5200, L100.0100 ####[facility] [address] [place], [address] T PROT 5.7 g/dL Low 6.4-8.2 [facility] Comment on above: Performed By: #### L 501.9520, L500.4050, L501.2300, L501.5200, L100.0100 ####[facility] [address] [place], [address] Urea nitrogen [Mass/Vol] 21 mg/dL High 7-18 [facility] Comment on above: Performed By: #### L 501.9520, L500.4050, L501.2300, L501.5200, L100.0100 ####[facility] [address] [place], [address] Magnesiumon 10-30-2023 Magnesium [Mass/Vol] 2.2 mg/dL Normal 1.6-2.6 [facility] Comment on above: Performed By: #### L 501.9520, L500.4050, L501.2300, L501.5200, L100.0100 ####[facility] [address] [place], [address] Phosphoruson 10-30-2023 Phosphate [Mass/Vol] 3.9 mg/dL Normal 2.5-4.9 [facility] Comment on above: Performed By: #### L 501.9520, L500.4050, L501.2300, L501.5200, L100.0100 ####[facility] [address] [place], [address] Thyroid Stim Hormone (TSH)on 10-30-2023 TSH 1.300 uIU/mL Normal 0.358-3.740 [facility] Comment on above: Performed By: #### L 501.9520, L500.4050, L501.2300, L501.5200, L100.0100 ####[facility] [address] [place], [address] Basic Metabolic Profile (BMP )on 10-29-2023 BUN/CRE 26.7 RATIO High 10-20 [facility] Comment on above: Performed By: #### L 500.2500, L100.0100 ####[facility] [address] [place], [address] CA,Total 8.7 mg/dL Normal 8.5-10.1 [facility] Comment on above: Performed By: #### L 500.2500, L100.0100 ####[facility] [address] [place], [address] Chloride [Moles/Vol] 103 mmol/L Normal 98-107 [facility] Comment on above: Performed By: #### L 500.2500, L100.0100 ####[facility] [address] [place], [address] CO2 [Moles/Vol] 31.0 mmol/L Normal 21.0-32.0 [facility] Comment on above: Performed By: #### L 500.2500, L100.0100 ####[facility] [address] [place], [address] Creatinine [Mass/Vol] 1.16 mg/dL Normal 0.70-1.30 [facility] Comment on above: Result Comment: The validity of the calculated GFR GFRAA in patients over70 years has not been determined. Clinical correlation isessential. Performed By: #### L 500.2500, L100.0100 ####[facility] [address] [place], [address] EST GFR - AA 81 mL/min Normal >60 [facility] Comment on above: Result Comment: Afri can [place] GFR Calc Performed By: #### L 500.2500, L100.0100 ####[facility] [address] [place], [address] GAP 5 Normal 5-15 [facility] Comment on above: Performed By: #### L 500.2500, L100.0100 ####[facility] [address] [place], [address] GFR/1.73 sq M.predicted among non-blacks MDRD (S/P/Bld) [Vol rate/Area] 67 mL/min/{1.73_m2} Normal >60 [facility] Comment on above: Result Comment: Non- GFR Calc Performed By: #### L 500.2500, L100.0100 ####[facility] [address] [place], [address] Glucose [Mass/Vol] 112 mg/dL High 74-106 [facility] Comment on above: Result Comment: Fast ing Glucose result from 100 to 125 mg/dLsuggests IMPAIRED HOMEOSTASIS per A.D.A. criteria. Performed By: #### L 500.2500, L100.0100 ####[facility] [address] [place], [address] Potassium [Moles/Vol] 3.9 mmol/L Normal 3.5-5.1 [facility] Comment on above: Performed By: #### L 500.2500, L100.0100 ####[facility] [address] [place], [address] Sodium [Moles/Vol] 139 mmol/L Normal 136-145 [facility] Comment on above: Performed By: #### L 500.2500, L100.0100 ####[facility] [address] [place], [address] Urea nitrogen [Mass/Vol] 31 mg/dL High 7-18 [facility] Comment on above: Performed By: #### L 500.2500, L100.0100 ####[facility] [address] [place], [address] CBC W/Diff, Automatedon - 0-2023 Absolute Lymph 2.07 X10 3/uL Normal 0.83-4.51 [facility] Comment on above: Performed By: #### L 500.2500, L100.0100 ####[facility] [address] [place], [address] Absolute Neut 6.8 X10 3/uL Normal 2.0-7.7 [facility] Comment on above: Performed By: #### L 500.2500, L100.0100 ####[facility] [address] [place], [address] Basophils/100 WBC (Bld) 0.3 % Normal 0-1 [facility] Comment on above: Performed By: #### L 500.2500, L100.0100 ####[facility] [address] [place], [address] Eosinophils/100 WBC (Bld) 1.5 % Normal 0-5 [facility] Comment on above: Performed By: #### L 500.2500, L100.0100 ####[facility] [address] [place], [address] Erythrocyte distribution width (RBC) [Ratio] 13.7 % Normal 11.6-14.6 [facility] Comment on above: Performed By: #### L 500.2500, L100.0100 ####[facility] [address] [place], [address] Hematocrit (Bld) [Volume fraction] 43.9 % Normal 40-54 [facility] Comment on above: Performed By: #### L 500.2500, L100.0100 ####[facility] [address] [place], [address] Hemoglobin (Bld) [Mass/Vol] 14.2 g/dL Normal 13.0-16.5 [facility] Comment on above: Performed By: #### L 500.2500, L100.0100 ####[facility] [address] [place], [address] IG% 0.700 Normal 0.0-0.9 [facility] Comment on above: Result Comment: IG% - Immature Granulocytes (promyelocytes, myelocytes andmetamyelocytes) > 1% indicates that a LEFT SHIFT is Present. Performed By: #### L 500.2500, L100.0100 ####[facility] [address] [place], [address] Lymphocytes/100 WBC (Bld) 20.7 % Normal 19-41 [facility] Comment on above: Performed By: #### L 500.2500, L100.0100 ####[facility] [address] [place], [address] MCH (RBC) [Entitic mass] 30.4 pg Normal 27.0-32.0 [facility] Comment on above: Performed By: #### L 500.2500, L100.0100 ####[facility] [address] [place], [address] MCHC (RBC) [Mass/Vol] 32.3 g/dL Normal 32-36 [facility] Comment on above: Performed By: #### L 500.2500, L100.0100 ####[facility] [address] [place], [address] MCV (RBC) [Entitic vol] 94.0 fL Normal 80-94 [facility] Comment on above: Performed By: #### L 500.2500, L100.0100 ####[facility] [address] [place], [address] Monocytes/100 WBC (Bld) 9.0 % Normal 0-10 [facility] Comment on above: Performed By: #### L 500.2500, L100.0100 ####[facility] [address] [place], [address] Neutrophils/100 WBC (Bld) 67.8 % Normal 47-70 [facility] Comment on above: Performed By: #### L 500.2500, L100.0100 ####[facility] [address] [place], [address] Nucleated RBC (Bld) [#/Vol] 0 10*3/uL Normal 0-5 [facility] Comment on above: Performed By: #### L 500.2500, L100.0100 ####[facility] [address] [place], [address] Platelet mean volume (Bld) [Entitic vol] 11.2 fL Normal 6.2-12.0 [facility] Comment on above: Performed By: #### L 500.2500, L100.0100 ####[facility] [address] [place], [address] Platelets (Bld) [#/Vol] 211 10*3/uL Normal 150-450 [facility] Comment on above: Performed By: #### L 500.2500, L100.0100 ####[facility] [address] [place], [address] RBC (Bld) [#/Vol] 4.67 10*6/uL Normal 4.6-6.2 [facility] Comment on above: Performed By: #### L 500.2500, L100.0100 ####[facility] [address] [place], [address] RDW SD 47.4 fl High 35.1-43.9 [facility] Comment on above: Performed By: #### L 500.2500, L100.0100 ####[facility] [address] [place], [address] WBC (Bld) [#/Vol] 10.0 10*3/uL Normal 4.4-11.0 [facility] Comment on above: Performed By: #### L 500.2500, L100.0100 ####[facility] [address] [place], [address] CORTISOL SERUMon 10-29-2023 CORTISOL 5.00 ug/dL Normal 3.44-22.45 [facility] Comment on above: Result Comment: Adul t (AM) 5.27 - 22.45 ug/dL Adult (PM) 3.44 - 16.76 ug/dL Performed By: #### L 509.6000 ####[facility] [address] [place], [address] Chest PA and Lateralon 10-28 Chest PA and Lateral Normal [facility] Emergency Department Summary on 10-29-2023 Emergency Department Summary Normal [facility] H AND P Exam - Hospitaliston 10-29-2023 H&P Exam - Hospitalist Normal [facility] Lactic Acidon 10-29-2023 Lactate [Moles/Vol] 1.8 mmol/L Normal 0.4-1.9 [facility] Comment on above: Order Comment: Y Performed By: #### L 503.6005 ####[facility] [address] [place], [address] Urine Cultureon 10-29-2023 URC Culture exhibits no growth. Normal [facility] Comment on above: Performed By: #### M 100.2200, L400.0001 ####[facility] [address] [place], [address] Emergency Department Summary on 10-28-2023 Emergency Department Summary Normal [facility] Kidney and Bladderon 024 Kidney and Bladder Normal [facility] Urinalysis, Completeon 10-27 BILIRUBIN URINE Negative Normal Negative [facility] Comment on above: Order Comment: XAVIER CTOR TO SPECIFY Performed By: #### M 100.2200, L400.0001 ####[facility] [address] [place], [address] Clarity (U) Clear Normal Clear [facility] Comment on above: Order Comment: XAVIER CTOR TO SPECIFY Performed By: #### M 100.2200, L400.0001 ####[facility] [address] [place], [address] Color (U) Yellow Normal Yellow [facility] Comment on above: Order Comment: XAVIER CTOR TO SPECIFY Performed By: #### M 100.2200, L400.0001 ####[facility] [address] [place], [address] GLUCOSE, UR Normal Normal Normal [facility] Comment on above: Order Comment: XAVIER CTOR TO SPECIFY Performed By: #### M 100.2200, L400.0001 ####[facility] [address] [place], [address] KETONE UR Negative Normal Negative [facility] Comment on above: Order Comment: XAVIER CTOR TO SPECIFY Performed By: #### M 100.2200, L400.0001 ####[facility] [address] [place], [address] LEUK ESTERASE Negative Normal Negative [facility] Comment on above: Order Comment: XAVIER CTOR TO SPECIFY Performed By: #### M 100.2200, L400.0001 ####[facility] [address] [place], [address] Nitrite Ql (U) Negative Normal Negative [facility] Comment on above: Order Comment: XAVIER CTOR TO SPECIFY Performed By: #### M 100.2200, L400.0001 ####[facility] [address] [place], [address] OCCULT BLOOD-UR Negative Normal Negative [facility] Comment on above: Order Comment: XAVIER CTOR TO SPECIFY Performed By: #### M 100.2200, L400.0001 ####[facility] [address] [place], [address] pH UR 6.0 Normal 5.0 - 8.0 [facility] Comment on above: Order Comment: [facility] CTOR TO SPECIFY Performed By: #### M 100.2200, L400.0001 ####[facility] [address] [place], [address] PROT DIPSTX Negative Normal Negative [facility] Comment on above: Order Comment: XAVIER CTOR TO SPECIFY Performed By: #### M 100.2200, L400.0001 ####[facility] [address] [place], [address] SP.GR. DIPSTX 1.015 Normal 1.002-1.030 [facility] Comment on above: Order Comment: [facility] CTOR TO SPECIFY Performed By: #### M 100.2200, L400.0001 ####[facility] [address] [place], [address] UROBILI Normal Normal Normal [facility] Comment on above: Order Comment: [facility] CTOR TO SPECIFY Performed By: #### M 100.2200, L400.0001 ####[facility] [address] [place], [address] BACTERIA 0 SEEN Normal None Seen [facility] Comment on above: Order Comment: XAVIER CTOR TO SPECIFY Performed By: #### M 100.2200, L400.0001 ####[facility] [address] [place], [address] EPI,SQUAMOUS 0 SEEN Normal 0-5 [facility] Comment on above: Order Comment: COLLE CTOR TO SPECIFY Performed By: #### M 100.2200, L400.0001 ####[facility] [address] [place], [address] Mucus Ql (Urine sed) 0 SEEN Normal [facility] Comment on above: Order Comment: COLLE CTOR TO SPECIFY Performed By: #### M 100.2200, L400.0001 ####[facility] [address] [place], [address] RBC 0 SEEN Normal 0-5 [facility] Comment on above: Order Comment: COLLE CTOR TO SPECIFY Performed By: #### M 100.2200, L400.0001 ####[facility] [address] [place], [address] WBC 0 SEEN Normal 0-5 [facility] Comment on above: Order Comment: COLLE CTOR TO SPECIFY Performed By: #### M 100.2200, L400.0001 ####[facility] [address] [place], [address] Basic Metabolic Profile (BMP )on 10-23-2023 BUN/CRE 24.5 RATIO High 10-20 [facility] Comment on above: Performed By: #### L 100.0500, L500.2500 ####[facility] [address] [place], [address] CA,Total 9.0 mg/dL Normal 8.5-10.1 [facility] Comment on above: Performed By: #### L 100.0500, L500.2500 ####[facility] [address] [place], [address] Chloride [Moles/Vol] 103 mmol/L Normal 98-107 [facility] Comment on above: Performed By: #### L 100.0500, L500.2500 ####[facility] [address] [place], [address] CO2 [Moles/Vol] 29.0 mmol/L Normal 21.0-32.0 [facility] Comment on above: Performed By: #### L 100.0500, L500.2500 ####[facility] [address] [place], [address] Creatinine [Mass/Vol] 0.98 mg/dL Normal 0.70-1.30 [facility] Comment on above: Result Comment: The validity of the calculated GFR GFRAA in patients over70 years has not been determined. Clinical correlation isessential. Performed By: #### L 100.0500, L500.2500 ####[facility] [address] [place], [address] ECRCL 82.08 ml/min Normal [facility] Comment on above: Performed By: #### L 100.0500, L500.2500 ####[facility] [address] [place], [address] EST GFR - AA 99 mL/min Normal >60 [facility] Comment on above: Result Comment: Afri can Slovenian GFR Calc Performed By: #### L 100.0500, L500.2500 ####[facility] [address] [place], [address] GAP 6 Normal 5-15 [facility] Comment on above: Performed By: #### L 100.0500, L500.2500 ####[facility] [address] [place], [address] GFR/1.73 sq M.predicted among non-blacks MDRD (S/P/Bld) [Vol rate/Area] 81 mL/min/{1.73_m2} Normal >60 [facility] Comment on above: Result Comment: Non- GFR Calc Performed By: #### L 100.0500, L500.2500 ####[facility] [address] [place], [address] Glucose [Mass/Vol] 106 mg/dL Normal 74-106 [facility] Comment on above: Result Comment: Fast ing Glucose result from 100 to 125 mg/dLsuggests IMPAIRED HOMEOSTASIS per A.D.A. criteria. Performed By: #### L 100.0500, L500.2500 ####[facility] [address] [place], [address] Potassium [Moles/Vol] 3.7 mmol/L Normal 3.5-5.1 [facility] Comment on above: Performed By: #### L 100.0500, L500.2500 ####[facility] [address] [place], [address] Sodium [Moles/Vol] 138 mmol/L Normal 136-145 [facility] Comment on above: Performed By: #### L 100.0500, L500.2500 ####[facility] [address] [place], [address] Urea nitrogen [Mass/Vol] 24 mg/dL High 7-18 [facility] Comment on above: Performed By: #### L 100.0500, L500.2500 ####[facility] [address] [place], [address] CBC-Complete Blood Cnt No Di ffon 10-23-2023 Erythrocyte distribution width (RBC) [Ratio] 14.1 % Normal 11.6-14.6 [facility] Comment on above: Performed By: #### L 100.0500, L500.2500 ####[facility] [address] [place], [address] Hematocrit (Bld) [Volume fraction] 41.5 % Normal 40-54 [facility] Comment on above: Performed By: #### L 100.0500, L500.2500 ####[facility] [address] [place], [address] Hemoglobin (Bld) [Mass/Vol] 13.3 g/dL Normal 13.0-16.5 [facility] Comment on above: Performed By: #### L 100.0500, L500.2500 ####[facility] [address] [place], [address] MCH (RBC) [Entitic mass] 30.6 pg Normal 27.0-32.0 [facility] Comment on above: Performed By: #### L 100.0500, L500.2500 ####[facility] [address] [place], [address] MCHC (RBC) [Mass/Vol] 32.0 g/dL Normal 32-36 [facility] Comment on above: Performed By: #### L 100.0500, L500.2500 ####[facility] [address] [place], [address] MCV (RBC) [Entitic vol] 95.4 fL High 80-94 [facility] Comment on above: Performed By: #### L 100.0500, L500.2500 ####[facility] [address] [place], [address] Platelet mean volume (Bld) [Entitic vol] 11.3 fL Normal 6.2-12.0 [facility] Comment on above: Performed By: #### L 100.0500, L500.2500 ####[facility] [address] [place], [address] Platelets (Bld) [#/Vol] 184 10*3/uL Normal 150-450 [facility] Comment on above: Performed By: #### L 100.0500, L500.2500 ####[facility] [address] [place], [address] RBC (Bld) [#/Vol] 4.35 10*6/uL Low 4.6-6.2 [facility] Comment on above: Performed By: #### L 100.0500, L500.2500 ####[facility] [address] [place], [address] RDW SD 50.4 fl High 35.1-43.9 [facility] Comment on above: Performed By: #### L 100.0500, L500.2500 ####[facility] [address], [address] WBC (Bld) [#/Vol] 7.7 10*3/uL Normal 4.4-11.0 [facility] Comment on above: Performed By: #### L 100.0500, L500.2500 ####[facility] [address] [place], [address] Abdomen/Pelvis W IV Cont ONL Yon 10-22-2023 Abdomen/Pelvis W IV Cont ONLY Normal [facility] POCT UA Automated manually r esultedon 10-17-2023 Appearance (U) Clear Clear [facility] Work Phone: [phone] Glucose Test strip (U) [Mass/Vol] Negative NEGATIVE mg/dl [facility] Work Phone: [phone] Hemoglobin Ql (U) LARGE (3+) Abnormal NEGATIVE [facility] Work Phone: [phone] Interpretation and review of laboratory results Abnormal [facility] Work Phone: [phone] Leukocyte esterase Test strip Ql (U) SMALL (1+) Abnormal NEGATIVE [facility] Work Phone: [phone] Nitrite Ql (U) Negative NEGATIVE [facility] Work Phone: [phone] pH (U) 8.5 [pH] No Reference Range Established [facility] Work Phone: [phone] POC Bilirubin, Urine SMALL (1+) Abnormal NEGATIVE [facility] Work Phone: [phone] POC Color, Urine Yellow Straw, Yellow, Light-Yellow [facility] Work Phone: [phone] POC Ketones, Urine Negative NEGATIVE mg/dl [facility] Work Phone: [phone] POC Protein, Urine >=300 (3+) Abnormal NEGATIVE, 30 (1+) mg/dl [facility] Work Phone: POC Specific [place], Urine 1.020 1.005 - 1.035 [facility] Work Phone: POC Urobilinogen, Urine 0.2 0.2, 1.0 EU/DL [facility] Work Phone: [facility] Work Phone: CBC,PLATELETSon 09-07-2023 Erythrocyte distribution width (RBC) [Ratio] 14.3 % 10.9 - 14.3 % [facility] Hematocrit (Bld) [Volume fraction] 43.1 % 39.6 - 48.8 % [facility] Hemoglobin (Bld) [Mass/Vol] 13.9 g/dL 13.4 - 16.8 g/dL [facility] Interpretation and review of laboratory results Abnormal [facility] MCH (RBC) [Entitic mass] 30.6 pg 26.1 - 33.3 pg [facility] MCHC (RBC) [Mass/Vol] 32.3 g/dL 31.9 - 36.5 g/dL [facility] MCV (RBC) [Entitic vol] 94.9 fL High 79.0 - 94.5 fL [facility] Platelet mean volume (Bld) [Entitic vol] 12.1 fL 8.7 - 12.3 fL [facility] Platelets (Bld) [#/Vol] 130 10*3/uL Low 146 - 337 K/uL [facility] RBC (Bld) [#/Vol] 4.54 10*6/uL [facility] WBC (Bld) [#/Vol] 6.88 10*3/uL 3.73 - 10. 10 K/uL [facility] Hematocrit (Bld) [Volume fraction] 43.1 % Normal 39.6-48.8 [facility] Comment on above: Performed By: #### [facility] #### [facility] (DEFAULT) [address] [address] Hemoglobin (Bld) [Mass/Vol] 13.9 g/dL Normal 13.4-16.8 [facility] Comment on above: Performed By: #### H EMOGC #### [facility] (DEFAULT) [address] [place] [address] MCV (RBC) [Entitic vol] 94.9 fL High 79.0-94.5 [facility] Comment on above: Performed By: #### H EMOGC #### [facility] (DEFAULT) [address] [place] [address] Mean Cell Hgb 30.6 pg Normal 26.1-33.3 [facility] Comment on above: Performed By: #### H EMOGC #### [facility] (DEFAULT) [address] [place] [address] Mean Cell Hgb Conc 32.3 g/dL Normal 31.9-36.5 [facility] Comment on above: Performed By: #### H EMOGC #### [facility] (DEFAULT) [address] [place] [address] Platelet mean volume (Bld) [Entitic vol] 12.1 fL Normal 8.7-12.3 [facility] Comment on above: Performed By: #### H EMOGC #### [facility] (DEFAULT) [address] [place] [address] Platelets (Bld) [#/Vol] 130 10*3/uL Low 146-337 [facility] Comment on above: Performed By: #### H EMOGC #### [facility] (DEFAULT) [address] [place] [address] RBC (Bld) [#/Vol] 4.54 10*6/uL Normal 4.38-5.83 [facility] Comment on above: Performed By: #### H EMOGC #### [facility] (DEFAULT) [address] [place] [address] RBC Distribution 14.3 % Normal 10.9-14.3 [facility] Comment on above: Performed By: #### [facility] #### [facility] (DEFAULT) [address] [place] [address] WBC (Bld) [#/Vol] 6.88 10*3/uL Normal 3.73-10.10 [facility] Comment on above: Performed By: #### [facility] #### [facility] (DEFAULT) [address] [place] [address] CHEM 7 (LYTES,BUN,CREA,GLUC) on 09-07-2023 Anion gap [Moles/Vol] 14 mmol/L 7 - 17 mmol/L [facility] Chloride [Moles/Vol] 101 mmol/L 98 - 10 8 mmol/L [facility] CO2 [Moles/Vol] 29 mmol/L 21 - 31 mmol/L [facility] Creatinine [Mass/Vol] 1.07 mg/dL 0.70 - 1.30 mg/dL [facility] eGFR, CKD-EPI, Male 75 - PINF [facility] Comment on above: Reported eGFR is bas ed on the CKD-EPI 2020 equation using creatinine, age, and sex. Glucose [Mass/Vol] 110 mg/dL High 70 - 99 mg/dL [facility] Interpretation and review of laboratory results Abnormal [facility] Osmolality Calc [Osmolality] 294 [facility] Potassium [Moles/Vol] 3.7 mmol/L 3.5 - 5.0 mmol/L [facility] Sodium [Moles/Vol] 140 mmol/L 135 - 145 mmol/L [facility] Urea nitrogen [Mass/Vol] 16 mg/dL 7 - 25 mg/dL [facility] Urea nitrogen/Creatinine [Mass ratio] 15 mg/mg [facility] Anion gap [Moles/Vol] 14 mmol/L Normal 7-17 [facility] Comment on above: Performed By: #### C HM7 #### [facility] (DEFAULT) [address] [place] [address] Chloride [Moles/Vol] 101 mmol/L Normal 98-108 [facility] Comment on above: Performed By: #### C HM7 #### [facility] (DEFAULT) [address] [place] [address] CO2 [Moles/Vol] 29 mmol/L Normal 21-31 [facility] Comment on above: Performed By: #### C HM7 #### [facility] (DEFAULT) [address] [place] [address] Creatinine [Mass/Vol] 1.07 mg/dL Normal 0.70-1.30 [facility] Comment on above: Performed By: #### C HM7 #### [facility] (DEFAULT) [address] [address] GFR/1.73 sq M.predicted among non-blacks MDRD (S/P/Bld) [Vol rate/Area] 77 mL/min/{1.73_m2} Normal >=60 [facility] Comment on above: Result Comment: Repo rted eGFR is based on the CKD-EPI 2020 equation using creatinine, age, and sex. Performed By: #### C HM7 #### [facility] (DEFAULT) [address] [address] Glucose [Mass/Vol] 110 mg/dL High 70-99 [facility] Comment on above: Performed By: #### C HM7 #### [facility] (DEFAULT) [address] [place] [address] Osmolality [Osmolality] 294 mosm/kg Normal 278-305 [facility] Comment on above: Performed By: #### C HM7 #### [facility] (DEFAULT) [address] [address] Potassium [Moles/Vol] 3.7 mmol/L Normal 3.5-5.0 [facility] Comment on above: Performed By: #### C HM7 #### [facility] (DEFAULT) [address] [place] [address] Sodium [Moles/Vol] 140 mmol/L Normal 135-145 [facility] Comment on above: Performed By: #### C HM7 #### [facility] (DEFAULT) [address] [place] [address] Urea nitrogen [Mass/Vol] 16 mg/dL Normal 7-25 [facility] Comment on above: Performed By: #### C HM7 #### [facility] (DEFAULT) [address] [place] [address] Urea nitrogen/Creatinine [Mass ratio] 15 mg/mg Normal [facility] Comment on above: Performed By: #### C HM7 #### [facility] (DEFAULT) [address] [place] [address] CBC,PLATELETSon 09-06-2023 Erythrocyte distribution width (RBC) [Ratio] 14.4 % High 10.9 - 14.3 % [facility] Hematocrit (Bld) [Volume fraction] 43.0 % 39.6 - 48.8 % [facility] Hemoglobin (Bld) [Mass/Vol] 14.1 g/dL 13.4 - 16.8 g/dL [facility] Interpretation and review of laboratory results Abnormal [facility] MCH (RBC) [Entitic mass] 31.0 pg 26.1 - 33.3 pg [facility] MCHC (RBC) [Mass/Vol] 32.8 g/dL 31.9 - 36.5 g/dL [facility] MCV (RBC) [Entitic vol] 94.5 fL 79.0 - 94.5 fL [facility] Platelet mean volume (Bld) [Entitic vol] [facility] Comment on above: Not measured Platelets (Bld) [#/Vol] 137 10*3/uL Low 146 - 337 K/uL [facility] RBC (Bld) [#/Vol] 4.55 10*6/uL [facility] WBC (Bld) [#/Vol] 7.62 10*3/uL 3.73 - 10. 10 K/uL [facility] Hematocrit (Bld) [Volume fraction] 43.0 % Normal 39.6-48.8 [facility] Comment on above: Performed By: #### H EMOGC #### [facility] (DEFAULT) [address] [place] [address] Hemoglobin (Bld) [Mass/Vol] 14.1 g/dL Normal 13.4-16.8 [facility] Comment on above: Performed By: #### H EMOGC #### [facility] (DEFAULT) [address] [place] [address] MCV (RBC) [Entitic vol] 94.5 fL Normal 79.0-94.5 O [facility] Comment on above: Performed By: #### H EMOGC #### [facility] (DEFAULT) [address] [place] [address] Mean Cell Hgb 31.0 pg Normal 26.1-33.3 [facility] Comment on above: Performed By: #### H EMOGC #### [facility] (DEFAULT) [address] [place] [address] Mean Cell Hgb Conc 32.8 g/dL Normal 31.9-36.5 [facility] Comment on above: Performed By: #### H EMOGC #### [facility] (DEFAULT) [address] [place] [address] Mean Platelet Volume Normal [facility] Comment on above: Result Comment: Not measured Performed By: #### H EMOGC #### [facility] (DEFAULT) [address] [place] [address] Platelets (Bld) [#/Vol] 137 10*3/uL Low 146-337 [facility] Comment on above: Performed By: #### H EMOGC #### [facility] (DEFAULT) [address] [place] [address] RBC (Bld) [#/Vol] 4.55 10*6/uL Normal 4.38-5.83 [facility] Comment on above: Performed By: #### [facility] #### [facility] (DEFAULT) [address] [place] [address] RBC Distribution 14.4 % High 10.9-14.3 [facility] Comment on above: Performed By: #### [facility] #### [facility] (DEFAULT) [address] [place] [address] WBC (Bld) [#/Vol] 7.62 10*3/uL Normal 3.73-10.10 [facility] Comment on above: Performed By: #### [facility] #### [facility] (DEFAULT) [address] [place] [address] CHEM 7 (LYTES,BUN,CREA,GLUC) on 09-06-2023 Anion gap [Moles/Vol] 15 mmol/L 7 - 17 mmol/L [facility] Chloride [Moles/Vol] 102 mmol/L 98 - 10 8 mmol/L [facility] Company CO2 [Moles/Vol] 27 mmol/L 21 - 31 mmol/L [facility] Creatinine [Mass/Vol] 1.07 mg/dL 0.70 - 1.30 mg/dL [facility] eGFR, CKD-EPI, Male 77 - PINF [facility] Comment on above: Reported eGFR is bas ed on the CKD-EPI 2020 equation using creatinine, age, and sex. Glucose [Mass/Vol] 68 mg/dL Low 70 - 99 mg/dL [facility] Interpretation and review of laboratory results Abnormal [facility] Osmolality Calc [Osmolality] 292 [facility] Potassium [Moles/Vol] 4.0 mmol/L 3.5 - 5.0 mmol/L [facility] Comment on above: Specimen hemolyzed. Potassium results may be falsely elevated masking hypokalemia. Interpret within the clinical context. Sodium [Moles/Vol] 140 mmol/L 135 - 145 mmol/L [facility] Urea nitrogen [Mass/Vol] 16 mg/dL 7 - 25 mg/dL [facility] Urea nitrogen/Creatinine [Mass ratio] 15 mg/mg [facility] Anion gap [Moles/Vol] 15 mmol/L Normal 7-17 [facility] Comment on above: Performed By: #### C HM7 #### [facility] (DEFAULT) [address] [place] [address] 31509 Chloride [Moles/Vol] 102 mmol/L Normal 98-108 [facility] Comment on above: Performed By: #### C HM7 #### [facility] (DEFAULT) [address] [place] [address] 56466 CO2 [Moles/Vol] 27 mmol/L Normal 21-31 [facility] Comment on above: Performed By: #### C HM7 #### [facility] (DEFAULT) [address] [place] [address] 50199 Creatinine [Mass/Vol] 1.07 mg/dL Normal 0.70-1.30 [facility] Comment on above: Performed By: #### C HM7 #### [facility] (DEFAULT) [address] [place] [address] 10866 GFR/1.73 sq M.predicted among non-blacks MDRD (S/P/Bld) [Vol rate/Area] 77 mL/min/{1.73_m2} Normal >=60 [facility] Comment on above: Result Comment: Repo rted eGFR is based on the CKD-EPI 2020 equation using creatinine, age, and sex. Performed By: #### C HM7 #### [facility] (DEFAULT) [address] [place] [address]180 Glucose [Mass/Vol] 68 mg/dL Low 70-99 [facility] Comment on above: Performed By: #### C HM7 #### [facility] (DEFAULT) [address] [place] [address]1967 Osmolality [Osmolality] 292 mosm/kg Normal 278-305 [facility] Comment on above: Performed By: #### C HM7 #### [facility] (DEFAULT) [address] [place] [address] 16352 Potassium [Moles/Vol] 4.0 mmol/L Normal 3.5-5.0 [facility] Comment on above: Result Comment: Spec imen hemolyzed. Potassium results may be falsely elevated masking hypokalemia. Interpret within the clinical context. Performed By: #### C HM7 #### [facility] (DEFAULT) [address] [place] [address] Sodium [Moles/Vol] 140 mmol/L Normal 135-145 [facility] Comment on above: Performed By: #### C HM7 #### [facility] (DEFAULT) [address] [place] [address] 75530 Urea nitrogen [Mass/Vol] 16 mg/dL Normal 7-25 [facility] Comment on above: Performed By: #### C HM7 #### [facility] (DEFAULT) [address] [place] [address] 21748 Urea nitrogen/Creatinine [Mass ratio] 15 mg/mg Normal [facility] Comment on above: Performed By: #### C HM7 #### [facility] (DEFAULT) [address] [place] [address] 91907 GLUCOSE POCon 09-06-2023 Glucose [Mass/Vol] 98 mg/dL 70 - 99 mg/dL [facility] POC Sample Type CAPBL [facility] Test performed at address of the patient encounter. [facility] CBC,PLATELETSon 09-05-2023 Erythrocyte distribution width (RBC) [Ratio] 14.6 % High 10.9 - 14.3 % [facility] Hematocrit (Bld) [Volume fraction] 40.7 % 39.6 - 48.8 % [facility] Hemoglobin (Bld) [Mass/Vol] 13.5 g/dL 13.4 - 16.8 g/dL [facility] Interpretation and review of laboratory results Abnormal [facility] MCH (RBC) [Entitic mass] 31.4 pg 26.1 - 33.3 pg [facility] MCHC (RBC) [Mass/Vol] 33.2 g/dL 31.9 - 36.5 g/dL [facility] MCV (RBC) [Entitic vol] 94.7 fL High 79.0 - 94.5 fL [facility] Platelet mean volume (Bld) [Entitic vol] 12.0 fL 8.7 - 12.3 fL [facility] Platelets (Bld) [#/Vol] 130 10*3/uL Low 146 - 337 K/uL [facility] RBC (Bld) [#/Vol] 4.30 10*6/uL Low [facility] WBC (Bld) [#/Vol] 8.06 10*3/uL 3.73 - 10. 10 K/uL [facility] Hematocrit (Bld) [Volume fraction] 40.7 % Normal 39.6-48.8 [facility] Comment on above: Performed By: #### [facility] #### [facility] (DEFAULT) [address] [address] Hemoglobin (Bld) [Mass/Vol] 13.5 g/dL Normal 13.4-16.8 [facility] Comment on above: Performed By: #### [facility] #### [facility] (DEFAULT) [address] [address] MCV (RBC) [Entitic vol] 94.7 fL High 79.0-94.5 [facility] Comment on above: Performed By: #### H EMOGC #### [facility] (DEFAULT) [address] [address] Mean Cell Hgb 31.4 pg Normal 26.1-33.3 [facility] Comment on above: Performed By: #### H EMOGC #### [facility] (DEFAULT) [address] [address] Mean Cell Hgb Conc 33.2 g/dL Normal 31.9-36.5 [facility] Comment on above: Performed By: #### H EMO #### [facility] (DEFAULT) [address] [place] [address] 47586 Platelet mean volume (Bld) [Entitic vol] 12.0 fL Normal 8.7-12.3 [facility] Comment on above: Performed By: #### H EMO #### [facility] (DEFAULT) [address] [place] [address] 75376 Platelets (Bld) [#/Vol] 130 10*3/uL Low 146-337 [facility] Comment on above: Performed By: #### H EMOGC #### [facility] (DEFAULT) [address] [place] [address] 80757 RBC (Bld) [#/Vol] 4.30 10*6/uL Low 4.38-5.83 [facility] Comment on above: Performed By: #### H EMO #### [facility] (DEFAULT) [address] [place] [address] 12640 RBC Distribution 14.6 % High 10.9-14.3 [facility] Comment on above: Performed By: #### H EMOGC #### [facility] (DEFAULT) [address] [place] [address] 42344 WBC (Bld) [#/Vol] 8.06 10*3/uL Normal 3.73-10.10 [facility] Comment on above: Performed By: #### H EMOGC #### [facility] (DEFAULT) [address] [place] [address] 92950 CHEM 7 (LYTES,BUN,CREA,GLUC) on 09-05-2023 Anion gap [Moles/Vol] 12 mmol/L 7 - 17 mmol/L [facility] Chloride [Moles/Vol] 105 mmol/L 98 - 10 8 mmol/L [facility] CO2 [Moles/Vol] 26 mmol/L 21 - 31 mmol/L [facility] Creatinine [Mass/Vol] 0.98 mg/dL 0.70 - 1.30 mg/dL [facility] eGFR, CKD-EPI, Male 86 - PINF [facility] Comment on above: Reported eGFR is bas ed on the CKD-EPI 2020 equation using creatinine, age, and sex. Glucose [Mass/Vol] 95 mg/dL 70 - 99 mg/dL [facility] Osmolality Calc [Osmolality] 292 [facility] Potassium [Moles/Vol] 3.6 mmol/L 3.5 - 5.0 mmol/L [facility] Sodium [Moles/Vol] 139 mmol/L 135 - 145 mmol/L [facility] Urea nitrogen [Mass/Vol] 20 mg/dL 7 - 25 mg/dL [facility] Urea nitrogen/Creatinine [Mass ratio] 20 mg/mg [facility] Anion gap [Moles/Vol] 12 mmol/L Normal 7-17 [facility] Comment on above: Performed By: #### C HM7 #### [facility] (DEFAULT) [address] [place] [address] 74084 Chloride [Moles/Vol] 105 mmol/L Normal 98-108 [facility] Comment on above: Performed By: #### C HM7 #### [facility] (DEFAULT) [address] [place] [address] 85631 CO2 [Moles/Vol] 26 mmol/L Normal 21-31 [facility] Comment on above: Performed By: #### C HM7 #### [facility] (DEFAULT) [address] [place] [address] Creatinine [Mass/Vol] 0.98 mg/dL Normal 0.70-1.30 [facility] Comment on above: Performed By: #### C HM7 #### [facility] (DEFAULT) [address] [place] [address] 12889 GFR/1.73 sq M.predicted among non-blacks MDRD (S/P/Bld) [Vol rate/Area] 86 mL/min/{1.73_m2} Normal >=60 [facility] Comment on above: Result Comment: Repo rted eGFR is based on the CKD-EPI 2020 equation using creatinine, age, and sex. Performed By: #### C HM7 #### U [facility] (DEFAULT) [address] [place] [address]281 Glucose [Mass/Vol] 95 mg/dL Normal 70-99 [facility] Comment on above: Performed By: #### C HM7 #### [facility] (DEFAULT) [address] [place] [address] 04013 Osmolality [Osmolality] 292 mosm/kg Normal 278-305 [facility] Comment on above: Performed By: #### C HM7 #### [facility] (DEFAULT) [address] [place] [address] 59479 Potassium [Moles/Vol] 3.6 mmol/L Normal 3.5-5.0 [facility] Comment on above: Performed By: #### C HM7 #### [facility] (DEFAULT) [address] [place] [address] 29243 Sodium [Moles/Vol] 139 mmol/L Normal 135-145 [facility] Comment on above: Performed By: #### C HM7 #### [facility] (DEFAULT) [address] [place] [address] 86378 Urea nitrogen [Mass/Vol] 20 mg/dL Normal 7-25 [facility] Comment on above: Performed By: #### C HM7 #### [facility] (DEFAULT) [address] [place] [address] 54143 Urea nitrogen/Creatinine [Mass ratio] 20 mg/mg Normal [facility] Comment on above: Performed By: #### C HM7 #### [facility] (DEFAULT) [address] [place] [address] 47945 CBC,PLATELETSon 09-04-2023 Erythrocyte distribution width (RBC) [Ratio] 14.2 % 10.9 - 14.3 % [facility] Hematocrit (Bld) [Volume fraction] 49.3 % High 39.6 - 48.8 % [facility] Hemoglobin (Bld) [Mass/Vol] 15.9 g/dL 13.4 - 16.8 g/dL [facility] Interpretation and review of laboratory results Abnormal [facility] MCH (RBC) [Entitic mass] 30.8 pg 26.1 - 33.3 pg [facility] MCHC (RBC) [Mass/Vol] 32.3 g/dL 31.9 - 36.5 g/dL [facility] MCV (RBC) [Entitic vol] 95.4 fL High 79.0 - 94.5 fL [facility] Platelet mean volume (Bld) [Entitic vol] 12.2 fL 8.7 - 12.3 fL [facility] Platelets (Bld) [#/Vol] 148 10*3/uL 146 - 337 K/uL [facility] RBC (Bld) [#/Vol] 5.17 10*6/uL [facility] WBC (Bld) [#/Vol] 9.79 10*3/uL 3.73 - 10. 10 K/uL [facility] Hematocrit (Bld) [Volume fraction] 49.3 % High 39.6-48.8 [facility] Comment on above: Performed By: #### [facility] #### [facility] (DEFAULT) [address] [place] [address] Hemoglobin (Bld) [Mass/Vol] 15.9 g/dL Normal 13.4-16.8 [facility] Comment on above: Performed By: #### [facility] #### [facility] (DEFAULT) [address] [place] [address] MCV (RBC) [Entitic vol] 95.4 fL High 79.0-94.5 [facility] Comment on above: Performed By: #### [facility] #### [facility] (DEFAULT) [address] [place] [address] 64692 Mean Cell Hgb 30.8 pg Normal 26.1-33.3 [facility] Comment on above: Performed By: #### H EMOGC #### U [facility] (DEFAULT) [address] [address] Mean Cell Hgb Conc 32.3 g/dL Normal 31.9-36.5 [facility] Comment on above: Performed By: #### H EMOGC #### U [facility] (DEFAULT) [address] [address] Platelet mean volume (Bld) [Entitic vol] 12.2 fL Normal 8.7-12.3 [facility] Comment on above: Performed By: #### H EMOGC #### [facility] (DEFAULT) [address] [address] Platelets (Bld) [#/Vol] 148 10*3/uL Normal 146-337 [facility] Comment on above: Performed By: #### H EMOGC #### [facility] (DEFAULT) [address] [address] RBC (Bld) [#/Vol] 5.17 10*6/uL Normal 4.38-5.83 [facility] Comment on above: Performed By: #### H EMOGC #### [facility] (DEFAULT) [address] [place] [address] 11906 RBC Distribution 14.2 % Normal 10.9-14.3 [facility] Comment on above: Performed By: #### H EMOGC #### [facility] (DEFAULT) [address] [address] WBC (Bld) [#/Vol] 9.79 10*3/uL Normal 3.73-10.10 [facility] Comment on above: Performed By: #### H EMOGC #### [facility] (DEFAULT) [address] [place] [address] 74073 CHEM 7 (LYTES,BUN,CREA,GLUC) Ordered By: Homar Scott on 09-04-2023 Anion gap [Moles/Vol] 17 mmol/L 7 - 17 mmol/L [facility] Chloride [Moles/Vol] 101 mmol/L 98 - 10 8 mmol/L [facility] CO2 [Moles/Vol] 27 mmol/L 21 - 31 mmol/L [facility] Creatinine [Mass/Vol] 0.97 mg/dL 0.70 - 1.30 mg/dL [facility] eGFR, CKD-EPI, Male 87 - PINF [facility] Comment on above: Reported eGFR is bas ed on the CKD-EPI 2020 equation using creatinine, age, and sex. Glucose [Mass/Vol] 98 mg/dL 70 - 99 mg/dL [facility] Osmolality Calc [Osmolality] 295 [facility] Potassium [Moles/Vol] 3.7 mmol/L 3.5 - 5.0 mmol/L [facility] Sodium [Moles/Vol] 141 mmol/L 135 - 145 mmol/L [facility] Urea nitrogen [Mass/Vol] 17 mg/dL 7 - 25 mg/dL [facility] Urea nitrogen/Creatinine [Mass ratio] 18 mg/mg [facility] CHEM 7 (LYTES,BUN,CREA,GLUC) on 09-04-2023 Anion gap [Moles/Vol] 17 mmol/L Normal 7-17 [facility] Comment on above: Performed By: #### C HM7 #### [facility] (DEFAULT) [address] [address] Chloride [Moles/Vol] 101 mmol/L Normal 98-108 [facility] Comment on above: Performed By: #### C HM7 #### [facility] (DEFAULT) [address] [address] CO2 [Moles/Vol] 27 mmol/L Normal 21-31 [facility] Comment on above: Performed By: #### C HM7 #### [facility] (DEFAULT) [address] [place] [address]291 Creatinine [Mass/Vol] 0.97 mg/dL Normal 0.70-1.30 [facility] Comment on above: Performed By: #### C HM7 #### [facility] (DEFAULT) [address] [address] GFR/1.73 sq M.predicted among non-blacks MDRD (S/P/Bld) [Vol rate/Area] 87 mL/min/{1.73_m2} Normal >=60 [facility] Comment on above: Result Comment: Repo rted eGFR is based on the CKD-EPI 2020 equation using creatinine, age, and sex. Performed By: #### C HM7 #### [facility] (DEFAULT) [address] [address] Glucose [Mass/Vol] 98 mg/dL Normal 70-99 [facility] Comment on above: Performed By: #### C HM7 #### [facility] (DEFAULT) [address] [address] Osmolality [Osmolality] 295 mosm/kg Normal 278-305 [facility] Comment on above: Performed By: #### C HM7 #### [facility] (DEFAULT) [address] [address] Potassium [Moles/Vol] 3.7 mmol/L Normal 3.5-5.0 [facility] Comment on above: Performed By: #### C HM7 #### [facility] (DEFAULT) [address] [address] Sodium [Moles/Vol] 141 mmol/L Normal 135-145 [facility] Comment on above: Performed By: #### C HM7 #### [facility] (DEFAULT) [address] [address] Urea nitrogen [Mass/Vol] 17 mg/dL Normal 7-25 [facility] Comment on above: Performed By: #### C HM7 #### [facility] (DEFAULT) [address] [place] [address] Urea nitrogen/Creatinine [Mass ratio] 18 mg/mg Normal [facility] Comment on above: Performed By: #### C [facility] #### [facility] (DEFAULT) [address] [place] [address] CBC,PLATELETSon 09-03-2023 Erythrocyte distribution width (RBC) [Ratio] 14.2 % 10.9 - 14.3 % [facility] Hematocrit (Bld) [Volume fraction] 46.8 % 39.6 - 48.8 % [facility] Hemoglobin (Bld) [Mass/Vol] 14.9 g/dL 13.4 - 16.8 g/dL [facility] Interpretation and review of laboratory results Abnormal [facility] MCH (RBC) [Entitic mass] 30.3 pg 26.1 - 33.3 pg [facility] MCHC (RBC) [Mass/Vol] 31.8 g/dL Low 31.9 - 36.5 g/dL [facility] MCV (RBC) [Entitic vol] 95.3 fL High 79.0 - 94.5 fL [facility] Platelet mean volume (Bld) [Entitic vol] 12.0 fL 8.7 - 12.3 fL [facility] Platelets (Bld) [#/Vol] 137 10*3/uL Low 146 - 337 K/uL [facility] RBC (Bld) [#/Vol] 4.91 10*6/uL [facility] WBC (Bld) [#/Vol] 10.04 10*3/uL 3.73 - 10 .10 K/uL [facility] Hematocrit (Bld) [Volume fraction] 46.8 % Normal 39.6-48.8 [facility] Comment on above: Performed By: #### [facility] #### [facility] (DEFAULT) [address] [place] [address] Hemoglobin (Bld) [Mass/Vol] 14.9 g/dL Normal 13.4-16.8 [facility] Comment on above: Performed By: #### H EMOGC #### [facility] (DEFAULT) [address] [address] MCV (RBC) [Entitic vol] 95.3 fL High 79.0-94.5 [facility] Comment on above: Performed By: #### H EMOGC #### [facility] (DEFAULT) [address] [address] Mean Cell Hgb 30.3 pg Normal 26.1-33.3 [facility] Comment on above: Performed By: #### H EMOGC #### [facility] (DEFAULT) [address] [address] Mean Cell Hgb Conc 31.8 g/dL Low 31.9-36.5 [facility] Comment on above: Performed By: #### H EMOGC #### [facility] (DEFAULT) [address] [address] Platelet mean volume (Bld) [Entitic vol] 12.0 fL Normal 8.7-12.3 [facility] Comment on above: Performed By: #### H EMOGC #### [facility] (DEFAULT) [address] [address] Platelets (Bld) [#/Vol] 137 10*3/uL Low 146-337 [facility] Comment on above: Performed By: #### H EMOGC #### [facility] (DEFAULT) [address] [address] RBC (Bld) [#/Vol] 4.91 10*6/uL Normal 4.38-5.83 [facility] Comment on above: Performed By: #### H EMOGC #### [facility] (DEFAULT) [address] [address] RBC Distribution 14.2 % Normal 10.9-14.3 [facility] Comment on above: Performed By: #### H EMOGC #### [facility] (DEFAULT) [address] [place] [address] WBC (Bld) [#/Vol] 10.04 10*3/uL Normal 3.73-10.10 [facility] Comment on above: Performed By: #### [facility] #### [facility] (DEFAULT) [address] [place] [address] CHEM 7 (LYTES,BUN,CREA,GLUC) on 09-03-2023 Anion gap [Moles/Vol] 13 mmol/L 7 - 17 mmol/L [facility] Chloride [Moles/Vol] 104 mmol/L 98 - 10 8 mmol/L [facility] CO2 [Moles/Vol] 28 mmol/L 21 - 31 mmol/L [facility] Creatinine [Mass/Vol] 0.89 mg/dL 0.70 - 1.30 mg/dL [facility] eGFR, CKD-EPI, Male - PINF [facility] Comment on above: Reported eGFR is bas ed on the CKD-EPI 2020 equation using creatinine, age, and sex. Glucose [Mass/Vol] 134 mg/dL High 70 - 99 mg/dL [facility] Interpretation and review of laboratory results Abnormal [facility] Osmolality Calc [Osmolality] 298 [facility] Potassium [Moles/Vol] 4.7 mmol/L 3.5 - 5.0 mmol/L [facility] Sodium [Moles/Vol] 140 mmol/L 135 - 145 mmol/L [facility] Urea nitrogen [Mass/Vol] 18 mg/dL 7 - 25 mg/dL [facility] Urea nitrogen/Creatinine [Mass ratio] 20 mg/mg [facility] Anion gap [Moles/Vol] 13 mmol/L Normal 7-17 [facility] Comment on above: Performed By: #### C HM7 #### [facility] (DEFAULT) [address] [place] [address] Chloride [Moles/Vol] 104 mmol/L Normal 98-108 [facility] Comment on above: Performed By: #### C HM7 #### U [facility] (DEFAULT) [address] [place] [address] CO2 [Moles/Vol] 28 mmol/L Normal 21-31 [facility] Comment on above: Performed By: #### C HM7 #### [facility] (DEFAULT) [address] [place] [address] Creatinine [Mass/Vol] 0.89 mg/dL Normal 0.70-1.30 [facility] Comment on above: Performed By: #### C HM7 #### [facility] (DEFAULT) [address] [place] [address]998 eGFR, CKD-EPI, Male > Normal >=60 [facility] Comment on above: Result Comment: Repo rted eGFR is based on the CKD-EPI 2020 equation using creatinine, age, and sex. Performed By: #### C HM7 #### [facility] (DEFAULT) [address] [place] [address] Glucose [Mass/Vol] 134 mg/dL High 70-99 [facility] Comment on above: Performed By: #### C HM7 #### [facility] (DEFAULT) [address] [place] [address] Osmolality [Osmolality] 298 mosm/kg Normal 278-305 [facility] Comment on above: Performed By: #### C HM7 #### [facility] (DEFAULT) [address] [place] [address] Potassium [Moles/Vol] 4.7 mmol/L Normal 3.5-5.0 [facility] Comment on above: Performed By: #### C HM7 #### [facility] (DEFAULT) [address] [place] [address] Sodium [Moles/Vol] 140 mmol/L Normal 135-145 [facility] Comment on above: Performed By: #### C HM7 #### [facility] (DEFAULT) [address] [place] [address] Urea nitrogen [Mass/Vol] 18 mg/dL Normal 09-11 [facility] Comment on above: Performed By: #### C HM7 #### [facility] (DEFAULT) [address] [place] [address] Urea nitrogen/Creatinine [Mass ratio] 20 mg/mg Normal [facility] Comment on above: Performed By: #### C HM7 #### [facility] (DEFAULT) [address] [place] [address] CARDIAC RHYTHM (SCANNED)on 0 09-02-2023 [facility] Portable XR Chest Viewson IMPRESSION: New bibasilar [...] placement of properly positioned tracheostomy tube. [facility] Radiology Study observation (narrative) [facility] Portable XR Chest ViewsOrder ed By: Arlen Eastman on 09-02-2023 [facility] Work Phone: XR CHEST 1 VIEW PORTABLEon [...] placement of properly positioned tracheostomy tube. Normal [facility] Basophil percentageOrdered B y: Brenda Coker on 06-25-2023 Chloride [Moles/Vol] 105 mmol/L 98-107 [facility] Glucose [Mass/Vol] 118 mg/dL 74-106 [facility] Comment on above: Fasting Glucose resu lt from 100 to 125 mg/dL suggests IMPAIRED HOMEOSTASIS per A.D.A. criteria. Potassium [Moles/Vol] 3.9 mmol/L 3.5-5.1 [facility] Sodium [Moles/Vol] 138 mmol/L 136-145 [facility] Laboratory - Chemistry and C hemistry - challengeOrdered By: Brenda Coker on 06-25-2023 CO2 [Moles/Vol] 29.0 mmol/L 21.0-32.0 [facility] Urea nitrogen/Creatinine [Mass ratio] 13.1 mg/mg 10-20 [facility] No Panel InformationOrdered By: Brenda Coker on 06-25-2023 Estimated GFR (MDRD) Amer 71 mL/min >60 [facility] Comment on above: GFR Calc Estimated GFR (MDRD) Non-Af Amer 59 mL/min >60 [facility] Comment on above: Non- GFR Calc Serum or plasma calcium leona urement (mass/volume)Ordered By: Brenda Coker on 06-25-2023 Calcium [Mass/Vol] 9.0 mg/dL 8.5-10.1 [facility] Serum or plasma creatinine m easurement (mass/volume)Ordered By: Brenda Coker on 06-25-2023 Creatinine [Mass/Vol] 1.30 mg/dL 0.70-1.30 [facility] Comment on above: The validity of the calculated GFR & GFRAA in patients over 70 years has not been determined. Clinical correlation is essential. Serum or plasma urea nitroge n measurement (mass/volume)Ordered By: Brenda Coker on 06-25-2023 Urea nitrogen [Mass/Vol] 17 mg/dL 7-18 [facility] Thin prep Papanicolaou smear with manual screeningOrdered By: Brenda Coker on 06-25-2023 Thin prep Papanicolaou smear with manual screening 4 5-15 [facility] Basophil percentageOrdered B y: Gilbert Hoang on 06-18-2023 Bilirubin [Mass/Vol] 1.30 mg/dL 0.20-1.00 [facility] Comment on above: For patients on eltr ombopag therapy, use of Dimension [place] TBIL is not recommended. Chloride [Moles/Vol] 103 mmol/L 98-107 [facility] Glucose [Mass/Vol] 96 mg/dL 74-106 [facility] Potassium [Moles/Vol] 3.3 mmol/L 3.5-5.1 [facility] Protein [Mass/Vol] 7.9 g/dL 6.4-8.2 [facility] Sodium [Moles/Vol] 139 mmol/L 136-145 [facility] Laboratory - Chemistry and C hemistry - challengeOrdered By: Gilbert Hoang on 06-18-2023 Albumin/Globulin [Mass ratio] 1.0 {ratio} 0.9-2.4 [facility] ALP [Catalytic activity/Vol] 84 U/L 45-117 [facility] ALT [Catalytic activity/Vol] U/L 16-61 [facility] CO2 [Moles/Vol] 32.0 mmol/L 21.0-32.0 [facility] Globulin (S) [Mass/Vol] 3.9 g/dL 2.2-4.2 [facility] Urea nitrogen/Creatinine [Mass ratio] 13.5 mg/mg 10-20 [facility] No Panel InformationOrdered By: Gilbert Hoang on 06-18-2023 Estimated GFR (MDRD) Amer 92 mL/min >60 [facility] Comment on above: GFR Calc Estimated GFR (MDRD) Non-Af Amer 76 mL/min >60 [facility] Comment on above: Non- GFR Calc Serum or plasma calcium leona urement (mass/volume)Ordered By: Gilbert Hoang on 06-18-2023 Calcium [Mass/Vol] 9.6 mg/dL 8.5-10.1 [facility] Serum or plasma creatinine m easurement (mass/volume)Ordered By: Gilbert Hoang on 06-18-2023 Creatinine [Mass/Vol] 1.04 mg/dL 0.70-1.30 [facility] Comment on above: The validity of the calculated GFR & GFRAA in patients over 70 years has not been determined. Clinical correlation is essential. Serum or plasma urea nitroge n measurement (mass/volume)Ordered By: Gilbert Hoang on 06-18-2023 Urea nitrogen [Mass/Vol] 14 mg/dL 7-18 [facility] Thin prep Papanicolaou smear with manual screeningOrdered By: Gilbertgiacomo Hoang on 06-18-2023 Thin prep Papanicolaou smear with manual screening 4.0 g/dL 3.2-5.0 [facility] Thin prep Papanicolaou smear with manual screening 15 U/L 15-37 [facility] Thin prep Papanicolaou smear with manual screening 4 5-15 [facility] Gram stain for investigation of transfusion reactionOrdered By: Karen Lora on 05-17-2023 Microscopic observation Gram stain Nom (Unsp spec) [facility] Microbial respiratory cultur eOrdered By: Karen Lora on 05-17-2023 Bacteria identified Respiratory culture Nom (Unsp spec) [facility] Basophil percentageOrdered B y: Karen oLra on 05-16-2023 Chloride [Moles/Vol] 102 mmol/L 98-107 [facility] Glucose [Mass/Vol] 82 mg/dL 74-106 [facility] Potassium [Moles/Vol] 3.3 mmol/L 3.5-5.1 [facility] Sodium [Moles/Vol] 137 mmol/L 136-145 [facility] Laboratory - Chemistry and C hemistry - challengeOrdered By: Karen Lora on 05-16-2023 CO2 [Moles/Vol] 31.0 mmol/L 21.0-32.0 [facility] Natriuretic peptide B (Bld) [Mass/Vol] 90.8 pg/mL 0-100 [facility] Urea nitrogen/Creatinine [Mass ratio] 9.9 mg/mg 10-20 [facility] No Panel InformationOrdered By: Karen Lora on 05-16-2023 D-Dimer Quantitative (PE/DVT) 0.41 FEU/ug/m 0.27-0.49 [facility] Comment on above: NORMAL D-Dimer level (<0.50) indicates no DVT or PE. Estimated GFR (MDRD) Amer 95 mL/min >60 [facility] Comment on above: GFR Calc Estimated GFR (MDRD) Non-Af Amer 79 mL/min >60 [facility] Comment on above: Non- GFR Calc Serum or plasma calcium leona urement (mass/volume)Ordered By: Karen Lora on 05-16-2023 Calcium [Mass/Vol] 9.0 mg/dL 8.5-10.1 [facility] Serum or plasma creatinine m easurement (mass/volume)Ordered By: Karen Lora on 05-16-2023 Creatinine [Mass/Vol] 1.01 mg/dL 0.70-1.30 [facility] Comment on above: The validity of the calculated GFR & GFRAA in patients over 70 years has not been determined. Clinical correlation is essential. Serum or plasma urea nitroge n measurement (mass/volume)Ordered By: Karen Lora on 05-16-2023 Urea nitrogen [Mass/Vol] 10 mg/dL 7-18 [facility] Thin prep Papanicolaou smear with manual screeningOrdered By: Karen Lora on 05-16-2023 Thin prep Papanicolaou smear with manual screening 4 5-15 [facility] Basophil percentageOrdered B y: II Rj Trammell on 05-06-2023 Basophil percentage 0.72 ng/mL 0.0-4.0 [facility] Comment on above: This test was perfor med using the TPSA assay method for theSwrveon chemistry system. Values obtained with differentassay methods cannot be used interchangably.When changing PSA assays in the course of monitoring apatient, additional sequential testing should be carriedout to confirm baseline values. Basophil percentageon 2023 Cholesterol [Mass/Vol] 99 mg/dL <200 [facility] Comment on above: <200 mg/dL Desirable 200-240 mg/dL Borderline >240 mg/dL High Risk Triglyceride [Mass/Vol] 90 mg/dL <199 [facility] Comment on above: The drugs N-Acetylcy steine and Metamizole may falsely depress this assay.Serum Triglycerides Reference Interval Normal <150 mg/dL Borderline high 150 - 199 mg/dL High 200 - 499 mg/dL Very High > or = 500 mg/dL Laboratory - Chemistry and C hemistry - challengeon 03-28-2023 Cholesterol in HDL [Mass/Vol] 50 mg/dL >40 [facility] Comment on above: The drugs N-Acetylcy steine and Metamizole may falsely depress this assay. Reference Range HDL <40 mg/dL Low HDL Cholesterol HDL >or= 60 mg/dL High HDL Cholesterol Cholesterol in LDL [Mass/Vol] 31 mg/dL 0-130 [facility] No Panel Informationon 03-28 VLDL Cholesterol 18 mg/dL 5-40 [facility] ECG 12-LEADon 03-26-2023 ECG 12-LEAD Ventricular Rate 63 Atrial Rate 63 P-R Interval 156 QRS Duration 84 Q-T Interval 402 QTC Calculation(Bazett) 411 P [place] 12 R [place] -4 T [place] 18 QRS Count 11 Q Onset 215 [...] QT has shortened Confirmed by Nevin Rogers ([id number]) on 03/28/2023 4:07:48 PM Normal [facility] Absolute lymphocyte countOrd ered By: Delfin Russell on 03-19-2023 Lymphocytes Auto (Unsp spec) [#/Vol] 1.39 10*3/uL 0.83-4.51 [facility] Automated lymphocyte count a s percentage of total leukocytesOrdered By: Delfin Russell on 03-19-2023 Lymphocytes/100 WBC Auto (Unsp spec) 22.9 % 19-41 [facility] Basophil percentageOrdered B y: Delfin Russell on 03-19-2023 Basophils/100 WBC (Bld) 0.3 % 0-1 [facility] Chloride [Moles/Vol] 107 mmol/L 98-107 [facility] Eosinophils/100 WBC (Bld) 2.0 % 0-5 [facility] Glucose [Mass/Vol] 91 mg/dL 74-106 [facility] Hemoglobin (Bld) [Mass/Vol] 14.6 g/dL 13.0-16.5 [facility] Monocytes/100 WBC (Bld) 7.6 % 0-10 [facility] Neutrophils (Bld) [#/Vol] 4.1 10*3/uL 2.0-7.7 [facility] Neutrophils/100 WBC (Bld) 67.0 % 47-70 [facility] Potassium [Moles/Vol] 3.6 mmol/L 3.5-5.1 [facility] Sodium [Moles/Vol] 140 mmol/L 136-145 [facility] WBC (Bld) [#/Vol] 6.1 10*3/uL 4.4-11.0 [facility] Determination of erythrocyte mean corpuscular volume (MCV)Ordered By: Delfin Russell on 03-19-2023 MCV (RBC) [Entitic vol] 96.4 fL 80-94 [facility] Erythrocyte distribution wid th ratioOrdered By: Delfin Russell on 03-19-2023 Erythrocyte distribution width (RBC) [Ratio] 13.5 % 11.6-14.6 [facility] Erythrocyte distribution wid th standard deviationOrdered By: Delfin Russell on 03-19-2023 Erythrocyte distribution width (RBC) [Entitic vol] 47.8 fL 35.1-43.9 [facility] Hematocrit Auto (Bld) [Volum e fraction]Ordered By: Delfin Russell on 03-19-2023 Hematocrit (Bld) [Volume fraction] 45.9 % 40-54 [facility] Immature granulocytes/100 WB C Auto (Bld)Ordered By: Delfin Russell on 03-19-2023 Immature granulocytes/100 WBC (Bld) 0.200 % 0.0-0.9 [facility] Comment on above: IG% - Immature Granu locytes (promyelocytes, myelocytes and metamyelocytes) > 1% indicates that a LEFT SHIFT is Present. Laboratory - Chemistry and C hemistry - challengeOrdered By: Delfin Russell on 03-19-2023 CO2 [Moles/Vol] 29.0 mmol/L 21.0-32.0 [facility] Urea nitrogen/Creatinine [Mass ratio] 6.9 mg/mg 10-20 [facility] Laboratory - Hematology and Cell countsOrdered By: Delfin Russell on 03-19-2023 MCH (RBC) [Entitic mass] 30.7 pg 27.0-32.0 [facility] MCHC (RBC) [Mass/Vol] 31.8 g/dL 32-36 [facility] Nucleated RBC/100 WBC (Bld) [Ratio] 0 % 0-5 [facility] Platelets (Bld) [#/Vol] 146 10*3/uL 150-450 [facility] No Panel InformationOrdered By: Delfin Russell on 03-19-2023 Estimated Creatinine Clearance Calc 85.51 ml/min [facility] Estimated GFR (MDRD) Amer 95 mL/min >60 [facility] Comment on above: GFR Calc Estimated GFR (MDRD) Non-Af Amer 79 mL/min >60 [facility] Comment on above: Non- GFR Calc Platelet mean volume Jose Daniel-Ec ker (Bld) [Entitic vol]Ordered By: Delfin Russell on 03-19-2023 Platelet mean volume (Bld) [Entitic vol] 12.1 fL 6.2-12.0 [facility] RBC Auto (Bld) [#/Vol]Ordere d By: Delfin Russell on 03-19-2023 RBC (Bld) [#/Vol] 4.76 10*6/uL 4.6-6.2 [facility] Serum or plasma calcium leona urement (mass/volume)Ordered By: Delfin Russell on 03-19-2023 Calcium [Mass/Vol] 9.2 mg/dL 8.5-10.1 [facility] Serum or plasma creatinine m easurement (mass/volume)Ordered By: Delfin Russell on 03-19-2023 Creatinine [Mass/Vol] 1.01 mg/dL 0.70-1.30 [facility] Comment on above: The validity of the calculated GFR & GFRAA in patients over 70 years has not been determined. Clinical correlation is essential. Serum or plasma urea nitroge n measurement (mass/volume)Ordered By: Delfin Russell on 03-19-2023 Urea nitrogen [Mass/Vol] 7 mg/dL 7-18 [facility] Thin prep Papanicolaou smear with manual screeningOrdered By: Delfin Russell on 03-19-2023 Thin prep Papanicolaou smear with manual screening 4 5-15 [facility] Serum or plasma thyroid stim ulating hormone (TSH) measurement (units/volume)Ordered By: Porfirio Miller on 03-18-2023 TSH Qn 0.35 uIU/mL 0.358-3.74 [facility] Laboratory - Microbiology an d Antimicrobial susceptibilityOrdered By: Moses Grady on 03-17-2023 G. lamblia Ag IA.rapid Ql (Stl) [facility] G. lamblia Ag IA.rapid Ql (Stl) [facility] Ova and parasitesOrdered By: Moses Grady on 03-17-2023 Ova and parasites identified LM Nom (Unsp spec) [facility] Ova and parasites identified LM Nom (Unsp spec) [facility] Stool enteric pathogen panel by probe and target amplification methodOrdered By: Moses Grady on 03-17-2023 Gastrointestinal pathogens panel YOLY+probe (Stl) [facility] Stool gastrointestinal hemog lobin detection by immunologic methodOrdered By: Delfin Russell on 03-17-2023 Lower GI hemoglobin IA Ql (Stl) [facility] Lower GI hemoglobin IA Ql (Stl) [facility] Stool lactoferrin detection by immunoassayOrdered By: Delfin Russell on 03-17-2023 Lactoferrin IA Ql (Stl) [facility] Lactoferrin IA Ql (Stl) [facility] Absolute lymphocyte countOrd ered By: Moses Grady on 03-16-2023 Lymphocytes Auto (Unsp spec) [#/Vol] 1.46 10*3/uL 0.83-4.51 [facility] Automated lymphocyte count a s percentage of total leukocytesOrdered By: Moses Grady on 03-16-2023 Lymphocytes/100 WBC Auto (Unsp spec) 22.0 % 19-41 [facility] Basophil percentageOrdered B y: Moses Grady on 03-16-2023 Basophil percentage 0 SEEN /hpf 0-5 [facility] Lactate [Moles/Vol] 1.1 mmol/L 0.4-2.0 [facility] Basophil percentage 2.5 mg/dL 2.5-4.9 [facility] Basophils/100 WBC (Bld) 0.3 % 0-1 [facility] Bilirubin [Mass/Vol] 0.80 mg/dL 0.20-1.00 [facility] Comment on above: For patients on eltr ombopag therapy, use of Dimension [place] TBIL is not recommended. Chloride [Moles/Vol] 101 mmol/L 98-107 [facility] Eosinophils/100 WBC (Bld) 0.6 % 0-5 [facility] Glucose [Mass/Vol] 140 mg/dL 74-106 [facility] Comment on above: Fasting Glucose resu lt greater than or equal to 126 mg/dL suggests DIABETES MELLITUS per A.D.A. criteria. Hemoglobin (Bld) [Mass/Vol] 14.6 g/dL 13.0-16.5 [facility] Monocytes/100 WBC (Bld) 6.2 % 0-10 [facility] Neutrophils (Bld) [#/Vol] 4.7 10*3/uL 2.0-7.7 [facility] Neutrophils/100 WBC (Bld) 70.6 % 47-70 [facility] Potassium [Moles/Vol] 3.4 mmol/L 3.5-5.1 [facility] Protein [Mass/Vol] 7.1 g/dL 6.4-8.2 [facility] Sodium [Moles/Vol] 136 mmol/L 136-145 [facility] WBC (Bld) [#/Vol] 6.6 10*3/uL 4.4-11.0 [facility] Bilirubin Test strip Ql (U)O rdered By: Moses Grady on 03-16-2023 Bilirubin Ql (U) Negative Negative [facility] Culture, urineOrdered By: Guerda Russell on 03-16-2023 Bacteria identified Cx Nom (U) Culture exhibits no growth. [facility] Bacteria identified Cx Nom (U) Culture exhibits no growth. [facility] Determination of erythrocyte mean corpuscular volume (MCV)Ordered By: Moses Grady on 03-16-2023 MCV (RBC) [Entitic vol] 92.2 fL 80-94 [facility] Direct bilirubinOrdered By: Moses Grady on 03-16-2023 Bilirubin.direct [Mass/Vol] 0.29 mg/dL 0.00-0.30 [facility] Erythrocyte distribution wid th ratioOrdered By: Moses Grady on 03-16-2023 Erythrocyte distribution width (RBC) [Ratio] 13.2 % 11.6-14.6 [facility] Erythrocyte distribution wid th standard deviationOrdered By: Moses Grady on 03-16-2023 Erythrocyte distribution width (RBC) [Entitic vol] 44.6 fL 35.1-43.9 [facility] Hematocrit Auto (Bld) [Volum e fraction]Ordered By: Moses Grady on 03-16-2023 Hematocrit (Bld) [Volume fraction] 43.9 % 40-54 [facility] Immature granulocytes/100 WB C Auto (Bld)Ordered By: Moses Grady on 03-16-2023 Immature granulocytes/100 WBC (Bld) 0.300 % 0.0-0.9 [facility] Comment on above: IG% - Immature Granu locytes (promyelocytes, myelocytes and metamyelocytes) > 1% indicates that a LEFT SHIFT is Present. Ketones Test strip Ql (U)Ord ered By: Moses Grady on 03-16-2023 Ketones Ql (U) 5 mg/dl Negative [facility] Laboratory - Chemistry and C hemistry - challengeOrdered By: Moses Grady on 03-16-2023 ALP [Catalytic activity/Vol] 77 U/L 45-117 [facility] ALT [Catalytic activity/Vol] 8 U/L 16-61 [facility] CO2 [Moles/Vol] 32.0 mmol/L 21.0-32.0 [facility] Globulin (S) [Mass/Vol] 3.5 g/dL 2.2-4.2 [facility] Lipase [Catalytic activity/Vol] 15 U/L 13-75 [facility] Comment on above: Please note:LIPASE r evised reference range effective 22. New Lipase methodology. Expected to produce lower values than the previous assay method. NEW Reference Range: 13 - 75 U/L Magnesium [Mass/Vol] 2.3 mg/dL 1.6-2.6 [facility] Natriuretic peptide B (Bld) [Mass/Vol] 81.7 pg/mL 0-100 [facility] Urea nitrogen/Creatinine [Mass ratio] 10.2 mg/mg 10-20 [facility] Laboratory - Hematology and Cell countsOrdered By: Moses Grady on 03-16-2023 MCH (RBC) [Entitic mass] 30.7 pg 27.0-32.0 [facility] MCHC (RBC) [Mass/Vol] 33.3 g/dL 32-36 [facility] Nucleated RBC/100 WBC (Bld) [Ratio] 0 % 0-5 [facility] Platelets (Bld) [#/Vol] 158 10*3/uL 150-450 [facility] Laboratory - Microbiology an d Antimicrobial susceptibilityOrdered By: Moses Grady on 03-16-2023 Bacteria identified Cx Nom (Bld) No growth in 5 days. [facility] Bacteria identified Cx Nom (Bld) No growth in 5 days. [facility] Mucus LM Ql (Urine sed)Order ed By: Moses Grady on 03-16-2023 Mucus Ql (Urine sed) 1+ /hpf [facility] Nitrite Test strip Ql (U)Ord ered By: Moses Grady on 03-16-2023 Nitrite Ql (U) Negative Negative [facility] No Panel InformationOrdered By: Moses Grady on 03-16-2023 Urine RBC 0 SEEN /hpf 0-5 [facility] Estimated Creatinine Clearance Calc 62.93 ml/min [facility] Estimated GFR (MDRD) Amer 67 mL/min >60 [facility] Comment on above: GFR Calc Estimated GFR (MDRD) Non-Af Amer 56 mL/min >60 [facility] Comment on above: Non- GFR Calc Troponin I High Sensitivity 39 pg/mL 3.0-78.0 [facility] Comment on above: Please Note: New [place] t Units and Gender Specific Reference Ranges. For more information see Policy Stat Procedure [place] High Sensitivity Troponin (TNIH) and attachments. No Panel InformationOrdered By: Delfin Russell on 03-16-2023 Stool Calprotectin 290 ug/g 0-120 [facility] Comment on above: Concentration Interp retation Follow-Up< 5 - 50 ug/g Normal None>50 -120 ug/g Borderline Re-evaluate in 4-6 weeks >120 ug/g Abnormal Repeat as clinically indicatedPerformed at: - [facility] [id number] Director: Alma Rosa Laura MD, Phone: [phone] Platelet mean volume Jose Daniel-Ec ker (Bld) [Entitic vol]Ordered By: Moses Grady on 03-16-2023 Platelet mean volume (Bld) [Entitic vol] 11.5 fL 6.2-12.0 [facility] Protein Test strip Ql (U)Ord ered By: Moses Grady on 03-16-2023 Protein Ql (U) 15 mg/dl Negative [facility] RBC Auto (Bld) [#/Vol]Ordere d By: Moses Grady on 03-16-2023 RBC (Bld) [#/Vol] 4.76 10*6/uL 4.6-6.2 [facility] Serum or plasma calcium leona urement (mass/volume)Ordered By: Moses Grady on 03-16-2023 Calcium [Mass/Vol] 9.2 mg/dL 8.5-10.1 [facility] Serum or plasma creatinine m easurement (mass/volume)Ordered By: Moses Grady on 03-16-2023 Creatinine [Mass/Vol] 1.37 mg/dL 0.70-1.30 [facility] Comment on above: The validity of the calculated GFR & GFRAA in patients over 70 years has not been determined. Clinical correlation is essential. Serum or plasma urea nitroge n measurement (mass/volume)Ordered By: Moses Grady on 03-16-2023 Urea nitrogen [Mass/Vol] 14 mg/dL 7-18 [facility] Squamous epithelial cells de tection in urine sediment by light microscopyOrdered By: Moses Grady on 03-16-2023 Epithelial cells.squamous LM Ql (Urine sed) 0-5 SEEN /hpf 0-5 [facility] Thin prep Papanicolaou smear with manual screeningOrdered By: Moses Grady on 03-16-2023 Thin prep Papanicolaou smear with manual screening 3.6 g/dL 3.2-5.0 [facility] Thin prep Papanicolaou smear with manual screening 13 U/L 15-37 [facility] Thin prep Papanicolaou smear with manual screening 3 5-15 [facility] Urine blood detectionOrdered By: Moses Grady on 03-16-2023 RBC Ql (U) 10 /ul Negative [facility] Urine clarityOrdered By: Zoltan Grady on 03-16-2023 Clarity (U) Clear Clear [facility] Urine color determinationOrd ered By: Moses Grady on 03-16-2023 Color (U) Yellow Yellow [facility] Urine glucose detectionOrder ed By: Moses Grady on 03-16-2023 Glucose Ql (U) Normal mg/dl Normal [facility] Urine leukocyte esterase det ection by dipstickOrdered By: Moses Grady on 03-16-2023 Leukocyte esterase Test strip Ql (U) 25 /ul Negative [facility] Urine pHOrdered By: Moses ying on 03-16-2023 pH (U) 6.0 [pH] 5.0 - 8.0 [facility] Urine sediment bacteria coun t by microscopy (number/high power field)Ordered By: Moses Grady on 03-16-2023 Bacteria LM.HPF (Urine sed) [#/Area] 0 /[HPF] None Seen [facility] Urine specific gravity measu rementOrdered By: Moses Grady on 03-16-2023 Specific gravity (U) [Rel density] 1.015 1.002-1.030 [facility] Urine urobilinogen measureme ntOrdered By: Moses Grady on 03-16-2023 Urobilinogen Ql (U) Normal mg/dl Normal [facility] Absolute lymphocyte countOrd ered By: Karen Lora on 12-14-2022 Lymphocytes Auto (Unsp spec) [#/Vol] 1.21 10*3/uL 0.83-4.51 [facility] Alternaria alternata IgE ser umOrdered By: Karen Lora on 12-14-2022 A. alternata IgE Qn (S) <0.10 kU/L Class 0 [facility] Atypical perinuclear antineu trophil cytoplasmic antibodies measurementOrdered By: Karen Lora on 12-14-2022 Neutrophil cytoplasmic Ab.perinuclear.atypical IF (S) [Titer] <1:20 titer Neg:<1:20 [facility] Comment on above: The atypical pANCA p attern has been observed in asignificant percentage of patients with ulcerative colitis,primary sclerosing cholangitis and autoimmune hepatitis. Basophil percentageOrdered B y: Karen Lora on 12-14-2022 Basophils/100 WBC (Bld) 0.3 % 0-1 [facility] [facility] Eosinophils/100 WBC (Bld) 1.7 % 0-5 [facility] Neutrophils (Bld) [#/Vol] 4.2 10*3/uL 2.0-7.7 [facility] Neutrophils/100 WBC (Bld) 69.9 % 47-70 [facility] WBC (Bld) [#/Vol] 6.1 10*3/uL 4.4-11.0 [facility] Blood erythrocytes count (nu mber/volume)Ordered By: Karen Lora on 12-14-2022 RBC (Bld) [#/Vol] 4.73 10*6/uL 4.6-6.2 [facility] Blood hemoglobin measurement (mass/volume)Ordered By: Karen Lora on 12-14-2022 Hemoglobin (Bld) [Mass/Vol] 14.4 g/dL 13.0-16.5 [facility] Blood lymphocytes/100 leukoc ytesOrdered By: Karen Lora on 12-14-2022 Lymphocytes/100 WBC (Bld) 20.0 % 19-41 [facility] Blood monocytes/100 leukocyt esOrdered By: Karen Lora on 12-14-2022 Monocytes/100 WBC (Bld) 7.8 % 0-10 [facility] Blood platelet mean volumeOr dered By: Karen Lora on 12-14-2022 Platelet mean volume (Bld) [Entitic vol] 11.0 fL 6.2-12.0 [facility] Determination of erythrocyte mean corpuscular volume (MCV)Ordered By: Karen Lora on 12-14-2022 MCV (RBC) [Entitic vol] 94.7 fL 80-94 [facility] Hematocrit Auto (Bld) [Volum e fraction]Ordered By: Karen Lora on 12-14-2022 Hematocrit (Bld) [Volume fraction] 44.8 % 40-54 [facility] Laboratory - Hematology and Cell countsOrdered By: Karen Lora on 12-14-2022 Erythrocyte distribution width (RBC) [Entitic vol] 47.6 fL 35.1-43.9 [facility] Erythrocyte distribution width (RBC) [Ratio] 13.7 % 11.6-14.6 [facility] Immature granulocytes/100 WBC (Bld) 0.300 % 0.0-0.9 [facility] Comment on above: IG% - Immature Granu locytes (promyelocytes, myelocytes and metamyelocytes) > 1% indicates that a LEFT SHIFT is Present. MCH (RBC) [Entitic mass] 30.4 pg 27.0-32.0 [facility] Nucleated RBC/100 WBC (Bld) [Ratio] 0 % 0-5 [facility] Laboratory - Miscellaneous t estsOrdered By: Karen Lora on 12-14-2022 Service comment (Unsp spec) [Interp] Comment . [facility] Comment on above: Levels of Specific [...] 12-14-2022 MCHC (RBC) [Mass/Vol] 32.1 g/dL 32-36 [facility] No Panel InformationOrdered By: Karen Lora on 12-14-2022 Common Ragweed (Short) Allergen <0.10 kU/L Class 0 [facility] Tunisian Plantain Allergen (RAST) <0.10 kU/L Class 0 [facility] Immunoglobulin E 176 IU/mL 6-495 [facility] Comment on above: Performed at: [facility] [address] [id number] Director: Noe Mejias PhD, Phone: [phone] at: [employer] [address] [id number] Director: Alma Rosa Laura MD, Phone: [phone] Mouse Urine Allergen IgE Antibody <0.10 kU/L [facility] 0 [facility] Comment on above: Performed at: [facility] [address] [id number] Director: Alma Rosa Laura MD, Phone: [phone] Platelets bldOrdered By: Addison Lora on 12-14-2022 Platelets (Bld) [#/Vol] 164 10*3/uL 150-450 [facility] Serum Aspergillus flavus ant ibody detection by immunodiffusionOrdered By: Karen Lora on 12-14-2022 A. flavus Ab Immune diff Ql (S) Negative Neg:<1:1 [facility] Serum Aspergillus fumigatus antibody detection by immunodiffusionOrdered By: Karen Lora on 12-14-2022 A. fumigatus Ab Immune diff Ql (S) Negative Neg:<1:1 [facility] Serum Aspergillus niger anti body detection by immunodiffusionOrdered By: Karen Lora on 12-14-2022 A. niger Ab Immune diff Ql (S) Negative Neg:<1:1 [facility] Serum Bermuda grass IgE anti body assay (units/volume)Ordered By: Karen Lora on 12-14-2022 Bermuda grass IgE Qn (S) <0.10 kU/L Class 0 [facility] Serum Dermatophagoides farin ae specific IgE antibody assay (units/volume)Ordered By: Karen Lora on 12-14-2022 Slovenian house dust mite IgE Qn (S) <0.10 kU/L Class 0 [facility] Serum house dust mi te IgE antibody assay (units/volume)Ordered By: Karen Lora on 12-14-2022 house dust mite IgE Qn (S) <0.10 kU/L Class 0 [facility] Serum [place] blue grass Ig E antibody assay (units/volume)Ordered By: Karen Lora on 12-14-2022 [place] blue grass IgE Qn (S) <0.10 kU/L Class 0 [facility] Serum cat dander IgE antibod y assay (units/volume)Ordered By: Karen Lora on 12-14-2022 Cat dander IgE Qn (S) <0.10 kU/L Class 0 [facility] Serum classic neutrophil cyt oplasmic antibody assay (units/volume)Ordered By: Karen Lora on 12-14-2022 Neutrophil cytoplasmic Ab.classic Qn (S) <1:20 titer Neg:<1:20 [facility] Serum dog epithelium IgE ant ibody assay (units/volume)Ordered By: Karen Lora on 12-14-2022 Dog epithelium IgE Qn (S) <0.10 kU/L Class 0 [facility] Serum perinuclear neutrophil cytoplasmic antibody titer by immunofluorescenceOrdered By: Karen Lora on 12-14-2022 Neutrophil cytoplasmic Ab.perinuclear IF (S) [Titer] <1:20 titer Neg:<1:20 [facility] Comment on above: The presence of posi tive fluorescence exhibiting P-ANCA orC-ANCA patterns alone is not specific for the diagnosis ofWegener's Granulomatosis (WG) or microscopic polyangiitis.Decisions about treatment should not be based solely onANCA IFA results. The [employer] Consensusrecommends follow up testing of positive sera with both CO-3 and MPO-ANCA enzyme immunoassays. As many as 5% serumsamples are positive only by EIA. Ref. AM J Clin Mbbgne2947;111:507-513. Serum white elm IgE antibody assay (units/volume)Ordered By: Karen Lora on 12-14-2022 White Elm IgE Qn (S) <0.10 kU/L Class 0 [facility] Serum white oak IgE antibody assay (units/volume)Ordered By: Karen Lora on 12-14-2022 [place] IgE Qn (S) <0.10 kU/L Class 0 [facility] Basophil percentageOrdered B y: Christian Hernandez on 10-09-2022 Creatinine [Mass/Vol] 1.7 mg/dL 0.70-1.30 [facility] Laboratory - Chemistry and C hemistry - challengeOrdered By: Christian Hernandez on 10-09-2022 GFR/1.73 sq M.predicted among non-blacks MDRD (S/P/Bld) [Vol rate/Area] 44.0000 mL/min/{1.73_m2} >60 [facility] Blood Pressure Cuff Sizeon 0 09-25-2022 [...] Cardiac catheterization with stent placement [06/06/2021, Dr. Anene Ukaigwe]: RCA stented with a 3.5 x 26 [...] on 06-19-2022 Bilirubin [Mass/Vol] 0.50 mg/dL 0.20-1.00 [facility] Comment on above: For patients on eltr ombopag therapy, use of Dimension [place] TBIL is not recommended. Chloride [Moles/Vol] 107 mmol/L 98-107 [facility] Glucose [Mass/Vol] 119 mg/dL 74-106 [facility] Comment on above: Fasting Glucose resu lt from 100 to 125 mg/dL suggests IMPAIRED HOMEOSTASIS per A.D.A. criteria. Potassium [Moles/Vol] 4.1 mmol/L 3.5-5.1 [facility] Protein [Mass/Vol] 7.7 g/dL 6.4-8.2 [facility] Sodium [Moles/Vol] 140 mmol/L 136-145 [facility] WBC (Bld) [#/Vol] 8.1 10*3/uL 4.4-11.0 [facility] Blood erythrocytes count (nu mber/volume)Ordered By: Dr. Hernandez on 06-19-2022 RBC (Bld) [#/Vol] 4.88 10*6/uL 4.6-6.2 [facility] Blood hemoglobin measurement (mass/volume)Ordered By: Dr. Hernandez on 06-19-2022 Hemoglobin (Bld) [Mass/Vol] 14.9 g/dL 13.0-16.5 [facility] Blood platelet mean volumeOr dered By: Dr. Hernandez on 06-19-2022 Platelet mean volume (Bld) [Entitic vol] 11.7 fL 6.2-12.0 [facility] Determination of erythrocyte mean corpuscular volume (MCV)Ordered By: Dr. Hernandez on 06-19-2022 MCV (RBC) [Entitic vol] 94.9 fL 80-94 [facility] Hematocrit Auto (Bld) [Volum e fraction]Ordered By: Dr. Hernandez on 06-19-2022 Hematocrit (Bld) [Volume fraction] 46.3 % 40-54 [facility] Laboratory - Chemistry and C hemistry - challengeOrdered By: Dr. Hernandez on 06-19-2022 ALP [Catalytic activity/Vol] 97 U/L 45-117 [facility] ALT [Catalytic activity/Vol] 27 U/L 16-61 [facility] CO2 [Moles/Vol] 31.0 mmol/L 21.0-32.0 [facility] Free T4 [Mass/Vol] 1.23 ng/dL 0.76-1.46 [facility] Globulin (S) [Mass/Vol] 3.9 g/dL 2.2-4.2 [facility] Magnesium [Mass/Vol] 2.5 mg/dL 1.6-2.6 [facility] Urea nitrogen/Creatinine [Mass ratio] 16.3 mg/mg 10-20 [facility] Laboratory - Hematology and Cell countsOrdered By: Dr. Hernandez on 06-19-2022 Erythrocyte distribution width (RBC) [Entitic vol] 45.1 fL 35.1-43.9 [facility] Erythrocyte distribution width (RBC) [Ratio] 13.0 % 11.6-14.6 [facility] MCH (RBC) [Entitic mass] 30.5 pg 27.0-32.0 [facility] MCHC Auto (RBC) [Mass/Vol]Or dered By: Dr. Hernandez on 06-19-2022 MCHC (RBC) [Mass/Vol] 32.2 g/dL 32-36 [facility] No Panel InformationOrdered By: Dr. Hernandez on 06-19-2022 Estimated GFR (MDRD) Amer 72 mL/min >60 [facility] Comment on above: GFR Calc Estimated GFR (MDRD) Non-Af Amer 60 mL/min >60 [facility] Comment on above: Non- GFR Calc Free Triiodothyronine (T3) pg/dL 2.8 pg/mL 2.18-3.98 [facility] Thyroid Stimulating Hormone (TSH) 0.69 uIU/mL 0.358-3.74 [facility] Whole Blood Vitamin B1 Level 186.2 nmol/L 66.5-200.0 [facility] Comment on above: Performed at: [address] [id number] Director: Alma Rosa Laura MD, Phone: [phone] Platelets bldOrdered By: Dr. Hernandez on 06-19-2022 Platelets (Bld) [#/Vol] 185 10*3/uL 150-450 [facility] Serum or plasma albumin leona urement (mass/volume)Ordered By: Dr. Hernandez on 06-19-2022 Albumin [Mass/Vol] 3.8 g/dL 3.2-5.0 [facility] Serum or plasma albumin/glob ulin mass ratioOrdered By: Dr. Hernandez on 06-19-2022 Albumin/Globulin [Mass ratio] 1.0 {ratio} 0.9-2.4 [facility] Serum or plasma calcium leona urement (mass/volume)Ordered By: Dr. Hernandez on 06-19-2022 Calcium [Mass/Vol] 9.2 mg/dL 8.5-10.1 [facility] Serum or plasma creatinine m easurement (mass/volume)Ordered By: Dr. Hernandez on 06-19-2022 Creatinine [Mass/Vol] 1.29 mg/dL 0.70-1.30 [facility] Comment on above: The validity of the calculated GFR & GFRAA in patients over 70 years has not been determined. Clinical correlation is essential. Serum or plasma folate measu rement (mass/volume)Ordered By: Dr. Hernandez on 06-19-2022 Folate [Mass/Vol] 7.60 ng/mL 3.1-55.4 [facility] Serum or plasma urea nitroge n measurement (mass/volume)Ordered By: Dr. Hernandez on 06-19-2022 Urea nitrogen [Mass/Vol] 21 mg/dL 7-18 [facility] Thin prep Papanicolaou smear with manual screeningOrdered By: Dr. Hernandez on 06-19-2022 Thin prep Papanicolaou smear with manual screening 19 U/L 15-37 [facility] Thin prep Papanicolaou smear with manual screening 2 5-15 [facility] 24 hour urine alpha 2 globul in/total protein ratio by electrophoresis (mass fraction)Ordered By: Dr. Lobo on 05-02-2022 Alpha 2 globulin Elph (24H U) [Mass fraction] 11.1 % . [facility] 24 hour urine beta globulin/ total protein ratio by electrophoresis (mass fraction)Ordered By: Dr. Lobo on 05-02-2022 Beta globulin Elph (24H U) [Mass fraction] 34.1 % . [facility] 24 hour urine gamma globulin /total protein ratio by electrophoresis (mass fraction)Ordered By: Dr. Lobo on 05-02-2022 Gamma globulin Elph (24H U) [Mass fraction] 28.7 % . [facility] Basophil percentageOrdered B y: Dr. Lobo on 05-02-2022 Basophil percentage 3 ug/L 0-9 [facility] Comment on above: Detection Limit = 1 Basophil percentage Not Reportable [facility] Chloride [Moles/Vol] 102 mmol/L 98-107 [facility] Glucose [Mass/Vol] 88 mg/dL 74-106 [facility] Potassium [Moles/Vol] 4.3 mmol/L 3.5-5.1 [facility] Sodium [Moles/Vol] 139 mmol/L 136-145 [facility] Blood cadmium measurement (m ass/volume)Ordered By: Dr. Lobo on 05-02-2022 Cadmium (Bld) [Mass/Vol] 1.0 ug/L 0.0-1.2 [facility] Comment on above: Environmental Exposu re: Nonsmokers 0.3 - 1.2 Smokers 0.6 - 3.9 Occupational Exposure: OSHA Cadmium Std 5.0 MICK 5.0 Detection Limit = 0.5 Blood mercury measurement (m ass/volume)Ordered By: Dr. Lobo on 05-02-2022 Mercury (Bld) [Mass/Vol] < 1.0 ug/L 0.0-14.9 [facility] Comment on above: Environmental Exposu re: <15.0 Occupational Exposure: MICK - Inorganic Mercury: 15.0 Detection Limit = 1.0 Laboratory - Chemistry and C hemistry - challengeOrdered By: Dr. Lobo on 05-02-2022 CK [Catalytic activity/Vol] 131 U/L 39-308 [facility] CO2 [Moles/Vol] 30.0 mmol/L 21.0-32.0 [facility] Cobalamin (Vitamin B12) [Mass/Vol] 391 pg/mL 211-911 [facility] Urea nitrogen/Creatinine [Mass ratio] 14.1 mg/mg 10-20 [facility] No Panel InformationOrdered By: Dr. Lobo on 05-02-2022 Anti-Nuclear Antibody Screen Negative Negative [facility] Comment on above: Performed at: [employer] [facility] [place] [id number] Director: Alma Rosa Laura MD, Phone: [phone] at: [facility] [employer] [id number] Director: Noe Mejias PhD, Phone: [phone] [employer] B Antibody Not Reportable [facility] Estimated GFR (MDRD) Amer 68 mL/min >60 [facility] Comment on above: GFR Calc Estimated GFR (MDRD) Non-Af Amer 57 mL/min >60 [facility] Comment on above: Non- GFR Calc Lead 1.2 ug/dL 0.0-3.4 [facility] Comment on above: Testing performed by Inductively coupled plasma/MassSpectrometry. Environmental Exposure: WHO Recommendation <20.0 Occupational Exposure: OSHA Lead Std 40.0 MICK 30.0 Detection Limit = 1.0This test was developed and its performancecharacteristics determined by [facility]. It has not beencleared or approved by the Food and Drug Administration. Parathyroid Hormone (Intact) 59.8 pg/mL 18.4-80.1 [facility] ENGINE INSTALLER Antibody Not Reportable [facility] Urine Immunofixation PEP Note Comment . [facility] Comment on above: Protein electrophore sis scan will follow via computer,mail, or switchboard wirer delivery.Performed at: [address] [id number] Director: Noe Mejias PhD, Phone: [phone] Serum DNA double strand anti body assay (units/volume)Ordered By: Dr. Lobo on 05-02-2022 DNA double strand Ab Qn (S) Not Reportable [facility] Serum Medina-1 antibody assay (u nits/volume)Ordered By: Dr. Lobo on 05-02-2022 Medina-1 extractable nuclear Ab Qn (S) Not Reportable [facility] Serum Scl-70 extractable nuc lear antibody assay (units/volume)Ordered By: Dr. Lobo on 05-02-2022 SCL-70 extractable nuclear Ab Qn (S) Not Reportable [facility] Serum Mojica extractable nucl ear antibody detectionOrdered By: Dr. Lobo on 05-02-2022 Mojica extractable nuclear Ab Ql (S) Not Reportable [facility] Serum or plasma calcium leona urement (mass/volume)Ordered By: Dr. Lobo on 05-02-2022 Calcium [Mass/Vol] 9.5 mg/dL 8.5-10.1 [facility] Serum or plasma creatinine m easurement (mass/volume)Ordered By: Dr. Lobo on 05-02-2022 Creatinine [Mass/Vol] 1.35 mg/dL 0.70-1.30 [facility] Comment on above: The validity of the calculated GFR & GFRAA in patients over 70 years has not been determined. Clinical correlation is essential. Serum or plasma urea nitroge n measurement (mass/volume)Ordered By: Dr. Lobo on 05-02-2022 Urea nitrogen [Mass/Vol] 19 mg/dL 7-18 [facility] Thin prep Papanicolaou smear with manual screeningOrdered By: Dr. Lobo on 05-02-2022 Thin prep Papanicolaou smear with manual screening 7 5-15 [facility] Urine albumin/total protein mass ratio by electrophoresisOrdered By: Dr. Lobo on 05-02-2022 Albumin Elph (U) [Mass fraction] 23.3 % . [facility] Urine alpha 1 globulin/total protein ratio by electrophoresis (mass fraction)Ordered By: Dr. Lobo on 05-02-2022 Alpha 1 globulin Elph (U) [Mass fraction] 2.8 % . [facility] Urine monoclonal protein/tot al protein mass ratio by electrophoresisOrdered By: Dr. Lobo on 05-02-2022 Protein.monoclonal Elph (U) [Mass fraction] See comment [facility] Comment on above: NOT OBSERVED Urine protein measurement (m ass/volume)Ordered By: Dr. Lobo on 05-02-2022 Protein (U) [Mass/Vol] 13.4 mg/dL Not Estab. [facility] Basophil percentageon 2022 Chloride [Moles/Vol] 107 mmol/L 98-107 [facility] Glucose [Mass/Vol] 110 mg/dL 74-106 [facility] Comment on above: Fasting Glucose resu lt from 100 to 125 mg/dL suggests IMPAIRED HOMEOSTASIS per A.D.A. criteria. Potassium [Moles/Vol] 4.4 mmol/L 3.5-5.1 [facility] Sodium [Moles/Vol] 142 mmol/L 136-145 [facility] Laboratory - Chemistry and C hemistry - challengeon 04-11-2022 CO2 [Moles/Vol] 29.0 mmol/L 21.0-32.0 [facility] Natriuretic peptide B (Bld) [Mass/Vol] 62.4 pg/mL 0-100 [facility] Urea nitrogen/Creatinine [Mass ratio] 16.6 mg/mg 10-20 [facility] No Panel Informationon 04-11 Estimated GFR (MDRD) Amer 60 mL/min >60 [facility] Comment on above: GFR Calc Estimated GFR (MDRD) Non-Af Amer 50 mL/min >60 [facility] Comment on above: Non- GFR Calc Serum or plasma calcium leona urement (mass/volume)on 04-11-2022 Calcium [Mass/Vol] 9.5 mg/dL 8.5-10.1 [facility] Serum or plasma creatinine m easurement (mass/volume)on 04-11-2022 Creatinine [Mass/Vol] 1.51 mg/dL 0.70-1.30 [facility] Comment on above: The validity of the calculated GFR & GFRAA in patients over 70 years has not been determined. Clinical correlation is essential. Serum or plasma urea nitroge n measurement (mass/volume)on 04-11-2022 Urea nitrogen [Mass/Vol] 25 mg/dL 7-18 [facility] Thin prep Papanicolaou smear with manual screeningon 04-11-2022 Thin prep Papanicolaou smear with manual screening 6 5-15 [facility] IO Ultrasound, measurement p ost-void resid urine and/or bl cap; no imagon 03-28-2022 IO Ultrasound, measurement post-void resid urine and/or bl cap; no imag 238 mL [facility] [place] [employer] Phone: Office Visit (Urology)on Follow-up visit Diagnoses/Problems [...] 03/01/2021 3:11:25 (more content not included)... Normal [facility] Tobacco Screening.on 023 Adult depression screening assessment No [facility] [place] Work Phone: Fall risk assessment a) No falls within the last year [facility] [place] Work Phone: Tobacco use status [facility] b) No [facility] [place] Work Phone: Blood Pressure Cuff Sizeon 0 03-27-2022 Fall risk assessment a) No falls within the last year [facility] [address] [place] Work Phone: Tobacco use status [facility] b) No [facility] [address] [place] [...] exertion Brain Natriuretic Peptide BNP; Status:Active; Requested for:[id number]; CAD (coronary artery disease), Hypertension, SOB (shortness of breath) on exertion Basic Metabolic Panel; Status:Active; Requested for:[id number]; CAD (coronary artery disease), SOB (shortness of [...] of Thyr (more content not included)... Normal [employer] [facility] No Panel InformationOrdered By: II Dr. Rj Trammell on 02-22-2022 Prostate Specific Antigen Total 0.42 ng/mL 0.0-4.0 [facility] Comment on above: This test was perfor med using the TPSA assay method for [employer] chemistry system. Values obtained with differentassay methods [...] feel free to call my office at [phone] and please allow 1-2 business days for a response. If you have any scheduling needs feel free to call [phone] Ernestina Hope Pulmonary and Critical Care Fellow [address] [place] [address] Provider Impressions 61 year old male with [...] This note was created using speech recognition bead wrapper software. Despite proofreading, several typographical errors might be present that might affect the meaning of the content. Ernestina Hope Pulmonary and Critical Care PGY-5 Chief Complaint Patient reports for Follow up. Patient states that Simbacort is somewhat helping. Former smoker since april- no assistance. Received Covid shot and 1 booster, No Flu shot History of Present Ccaalpb40 year old male with PMH of asthma (positive methacholine), laryngeal spasm, former tobacco use, NSTEMI s/p RCA stent (2021) who presents to pulmonary clinic after a recent hospitalization for pneumonia. Patient presented to [facility] on 01/24 and was told that he [...] pack per day, social etoh, no illicits. 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 Methacholine Challenge test [...] abuse (3 (more content not included)... Normal [facility] Tobacco Screening.on Adult depression screening assessment No [facility] [facility] Work Phone: Fall risk assessment a) No falls within the last year [facility] [facility] Work Phone: Tobacco use status [facility] b) No [facility] [facility] Work Phone: Chart Updateon 01-25-2022 Chart Update Chart Update Received message from Mrs. Cole that Mr. Cole was went to [facility] for health issues on 01/24/22. Called today [...] Jan 25 2022 12:22PM EST (Author) Normal [facility] Absolute lymphocyte countOrd ered By: Dr. Vera on 01-24-2022 Lymphocytes Auto (Unsp spec) [#/Vol] 0.58 10*3/uL 0.83-4.51 [facility] Basophil percentageOrdered B y: Dr. Vera on 01-24-2022 Basophils/100 WBC (Bld) 0.2 % 0-1 [facility] Chloride [Moles/Vol] 102 mmol/L 98-107 [facility] Eosin[facility]/100 WBC (Bld) 0.1 % 0-5 [facility] Glucose [Mass/Vol] 123 mg/dL 74-106 [facility] Comment on above: Fasting Glucose resu lt from 100 to 125 mg/dL suggests IMPAIRED HOMEOSTASIS per A.D.A. criteria. Neutrophils (Bld) [#/Vol] 7.8 10*3/uL 2.0-7.7 [facility] Neutrophils/100 WBC (Bld) 87.2 % 47-70 [facility] Potassium [Moles/Vol] 3.9 mmol/L 3.5-5.1 [facility] Sodium [Moles/Vol] 137 mmol/L 136-145 [facility] WBC (Bld) [#/Vol] 8.9 10*3/uL 4.4-11.0 [facility] Blood erythrocytes count (nu mber/volume)Ordered By: Dr. Vera on 01-24-2022 RBC (Bld) [#/Vol] 4.72 10*6/uL 4.6-6.2 [facility] Blood hemoglobin measurement (mass/volume)Ordered By: Dr. Vera on 01-24-2022 Hemoglobin (Bld) [Mass/Vol] 14.3 g/dL 13.0-16.5 [facility] Blood lymphocytes/100 leukoc ytesOrdered By: Dr. Vera on 01-24-2022 Lymphocytes/100 WBC (Bld) 6.5 % 19-41 [facility] Blood manual differential co mment interpretation (narrative result)Ordered By: Dr. Vera on 01-24-2022 Manual differential comment Buck (Bld) [Interp] SCANNED [facility] Blood monocytes/100 leukocyt esOrdered By: Dr. Vera on 01-24-2022 Monocytes/100 WBC (Bld) 5.7 % 0-10 [facility] Blood platelet mean volumeOr dered By: Dr. Vera on 01-24-2022 Platelet mean volume (Bld) [Entitic vol] 11.1 fL 6.2-12.0 [facility] Determination of erythrocyte mean corpuscular volume (MCV)Ordered By: Dr. Vera on 01-24-2022 MCV (RBC) [Entitic vol] 93.4 fL 80-94 [facility] Hematocrit Auto (Bld) [Volum e fraction]Ordered By: Dr. Vera on 01-24-2022 Hematocrit (Bld) [Volume fraction] 44.1 % 40-54 [facility] Influenza virus A and B and SARS-CoV-2 (COVID-19) Ag panel - Upper respiratory specimOrdered By: Dr. Vera on 01-24-2022 SARS-CoV-2 (COVID-19) RNA YOLY+probe Ql (Resp) [facility] Laboratory - Chemistry and C hemistry - challengeOrdered By: Dr. Vera on 01-24-2022 CO2 [Moles/Vol] 29.0 mmol/L 21.0-32.0 [facility] Natriuretic peptide B (Bld) [Mass/Vol] 110.9 pg/mL 0-100 [facility] Urea nitrogen/Creatinine [Mass ratio] 11.3 mg/mg 10-20 [facility] Laboratory - Hematology and Cell countsOrdered By: Dr. Vera on 01-24-2022 Erythrocyte distribution width (RBC) [Entitic vol] 45.9 fL 35.1-43.9 [facility] Erythrocyte distribution width (RBC) [Ratio] 13.3 % 11.6-14.6 [facility] Immature granulocytes/100 WBC (Bld) 0.300 % 0.0-0.9 [facility] Comment on above: IG% - Immature Granu locytes (promyelocytes, myelocytes and metamyelocytes) > 1% indicates that a LEFT SHIFT is Present. MCH (RBC) [Entitic mass] 30.3 pg 27.0-32.0 [facility] Nucleated RBC/100 WBC (Bld) [Ratio] 0 % 0-5 [facility] MCHC Auto (RBC) [Mass/Vol]Or dered By: Dr. Vera on 01-24-2022 MCHC (RBC) [Mass/Vol] 32.4 g/dL 32-36 [facility] No Panel InformationOrdered By: Dr. Vera on 01-24-2022 Estimated Creatinine Clearance Calc 56.85 ml/min [facility] Estimated GFR (MDRD) Amer 70 mL/min >60 [facility] Comment on above: GFR Calc Estimated GFR (MDRD) Non-Af Amer 58 mL/min >60 [facility] Comment on above: Non- GFR Calc Platelets bldOrdered By: Dr. Vera on 01-24-2022 Platelets (Bld) [#/Vol] 171 10*3/uL 150-450 [facility] RSV Ag EIAOrdered By: Dr. Mariposa levy on 01-24-2022 RSV Ag Immune stain Ql (Tiss) [facility] Serum or plasma calcium leona urement (mass/volume)Ordered By: Dr. Vera on 01-24-2022 Calcium [Mass/Vol] 9.3 mg/dL 8.5-10.1 [facility] Serum or plasma creatinine m easurement (mass/volume)Ordered By: Dr. Vera on 01-24-2022 Creatinine [Mass/Vol] 1.33 mg/dL 0.70-1.30 [facility] Comment on above: The validity of the calculated GFR & GFRAA in patients over 70 years has not been determined. Clinical correlation is essential. Serum or plasma urea nitroge n measurement (mass/volume)Ordered By: Dr. Vera on 01-24-2022 Urea nitrogen [Mass/Vol] 15 mg/dL 7-18 [facility] Thin prep Papanicolaou smear with manual screeningOrdered By: Dr. Vera on 01-24-2022 Thin prep Papanicolaou smear with manual screening 6 5-15 [facility] Follow Up (Pulmonary Medicin e)on 01-08-2022 Follow Up (Pulmonary Medicine) Diagnoses/Problems Asthma (493.90) (J45.909) SOB (shortness of breath) on exertion (786.05) (R06.02) Orders Start: Symbicort 80-4.5 MCG/ACT Inhalation Aerosol (Budesonide-Formoterol Fumarate); INHALE 2 PUFFS TWICE DAILY. RINSE MOUTH AFTER USE Rx By: Leta Lu; Dispense: 90 Days ; #:3 X 6.9 GM Inhaler; Refill: 3;For: Asthma; NAMRATA = N; Verified Transmission to [place] [id number]; Last Updated By: System, Osen; 01/08/2022 2:50:19 PM Otolaryngology Follow-Up Outpatient Follow-up Status: Hold For - Scheduling Requested for: 08Jan2022 Ordered Stat;For: Asthma; Ordered By: Leta Lu Performed: Due: [id number] Tobacco Use Screening; Status:Complete; Done: 08Jan2022 Perform:Not [...] unsafe with his breathing; sent him to [place] ED where he received albuterol breathing treatment. 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 Normal [facility] Tobacco Screening.on 022 Adult depression screening assessment [...] [address] [place] Work Phone: No Panel Informationon 10-31 -2022 66 {mL/min/1.73m2} >90 MP-Car diolo [facility] Work Phone: Comment on above: CALCULATIONS OF LILI MATED GFR ARE PERFORMED USING THE 2020 CKD-EPI STUDY REFIT EQUATION WITHOUT THE RACE VARIABLE FOR THE IDMS-TRACEABLE CREATININE METHODS.https://jasn.asnjournals.org/content// ASN.7244286730 BNPon 12-09-2021 Natriuretic peptide B (Bld) [Mass/Vol] 81 pg/mL Normal 0 - 99 [facility] Comment on above: Result Comment: . <1 00 pg/mL - Heart failure unlikely 100-299 pg/mL - Intermediate probability of acute heart . failure exacerbation. Correlate with clinical . context and patient history. >=300 pg/mL - Heart Failure likely. Correlate with clinical . context and patient history. BNP testing is performed using different testing methodology at [facility] than at other [facility]. Direct result comparisons should only be made within the same method. Performed By: #### B NP2 #### [address] [address] CBC AND DIFFERENTIALon 12-09 Basophils (Bld) [#/Vol] 0.00 10*3/uL Normal 0.00 - 0.1 0 [facility] Comment on above: Performed By: #### C BCDF #### [address] [address] Basophils/100 WBC (Bld) 0.4 % Normal 0.0 - 2.0 [facility] Comment on above: Performed By: #### C BCDF #### [address] [address] Eosinophils (Bld) [#/Vol] 0.10 10*3/uL Normal 0.00 - 0.70 [facility] Comment on above: Performed By: #### C BCDF #### [address] [address] Eosinophils/100 WBC (Bld) 1.0 % Normal 0.0 - 6.0 [facility] Comment on above: Performed By: #### C BCDF #### [address] [address] Erythrocyte distribution width (RBC) [Ratio] 13.3 % Normal 11.5 - 14.5 [facility] Comment on above: Performed By: #### C BCDF #### [address] [address] Hematocrit (Bld) [Volume fraction] 40.0 % Low 41.0 - 52.0 [facility] Comment on above: Performed By: #### C BCDF #### [address] [address] Hemoglobin (Bld) [Mass/Vol] 13.5 g/dL Normal 13.5 - 17.5 [facility] Comment on above: Performed By: #### C BCDF #### [address] [address] Lymphocytes (Bld) [#/Vol] 2.30 10*3/uL Normal 1.20 - 4.80 [facility] Comment on above: Performed By: #### C BCDF #### [address] [address] Lymphocytes/100 WBC (Bld) 26.8 % Normal 13.0 - 44.0 [facility] Comment on above: Performed By: #### C BCDF #### [address] [address] MCHC (RBC) [Mass/Vol] 33.9 g/dL Normal 32.0 - 36.0 [facility] Comment on above: Performed By: #### C BCDF #### [address] [address] MCV (RBC) [Entitic vol] 92 fL Normal 80 - 100 [facility] Comment on above: Performed By: #### C BCDF #### [address] [address] Monocytes (Bld) [#/Vol] 0.60 10*3/uL Normal 0.10 - 1.0 0 [facility] Comment on above: Performed By: #### C BCDF #### [address] [address] Monocytes/100 WBC (Bld) 7.5 % Normal 2.0 - 10.0 [facility] Comment on above: Performed By: #### C BCDF #### [address] [address] Neutrophils (Bld) [#/Vol] 5.40 10*3/uL Normal 1.20 - 7.70 [facility] Comment on above: Result Comment: Perc ent differential counts (%) should be interpreted in the context of the absolute cell counts (cells/L). Performed By: #### C BCDF #### [address] [address] Neutrophils/100 WBC (Bld) 64.3 % Normal 40.0 - 80.0 [facility] Comment on above: Performed By: #### C BCDF #### [address] [address] NUCLEATED RBC 0.1 /100 WBC Normal [facility] Comment on above: Performed By: #### C BCDF #### [address] [address] Platelets (Bld) [#/Vol] 186 10*3/uL Normal 150 - 450 [facility] Comment on above: Performed By: #### C BCDF #### [address] [address] RBC 4.35 x10E12/L Low 4.50 - 5.90 [facility] Comment on above: Performed By: #### C BCDF #### [address] [address] WBC (Bld) [#/Vol] 8.4 10*3/uL Normal 4.4 - 11.3 [facility] Comment on above: Performed By: #### C BCDF #### [address] [address] CHEST 1 VIEWon 12-09-2021 CHEST 1 VIEW Patient Name: FREDDIE COLE STUDY: CHEST 1 VIEW; 12/08/2021 11:18 pm INDICATION: dyspnea . COMPARISON: 06/03/2021 ACCESSION NUMBER(S): [id number] ORDERING CLINICIAN: ALFA CABALLERO FINDINGS: No consolidation, pleural effusion, or pneumothorax. Slight low lung volumes. Heart size is normal. No acute osseous abnormality. Degenerative changes about the shoulders and spine. IMPRESSION: 1. No acute cardiopulmonary process. Electronically signed by: RAJI JENNINGS, DO Normal [facility] COMPREHENSIVE PANELon 2021 Albumin [Mass/Vol] 4.2 g/dL Normal 3.4 - 5.0 [facility] Comment on above: Performed By: #### C MP #### [address] [address] ALP [Catalytic activity/Vol] 84 U/L Normal 33 - 136 [facility] Comment on above: Performed By: #### C MP #### [address] [address] ALT [Catalytic activity/Vol] 17 U/L Normal 10 - 52 [facility] Comment on above: Result Comment: Sadaf ents treated with Sulfasalazine may generate falsely decreased results for ALT. Performed By: #### C MP #### [address] [address] Anion gap [Moles/Vol] 11 mmol/L Normal 10 - 20 [facility] Comment on above: Performed By: #### C MP #### [address] [address] AST [Catalytic activity/Vol] 14 U/L Normal 9 - 39 [facility] Comment on above: Performed By: #### C MP #### [address] [address] Bilirubin [Mass/Vol] 0.5 mg/dL Normal 0.0 - 1.2 [facility] Comment on above: Performed By: #### C MP #### [address] [address] Calcium [Mass/Vol] 9.2 mg/dL Normal 8.6 - 10.3 [facility] Comment on above: Performed By: #### C MP #### [address] [address] Chloride [Moles/Vol] 102 mmol/L Normal 98 - 107 [facility] Comment on above: Performed By: #### C MP #### [address] [address] Creatinine [Mass/Vol] 1.26 mg/dL Normal 0.50 - 1.30 [facility] Comment on above: Performed By: #### C MP #### [address] [address] GFR/1.73 sq M.predicted among non-blacks MDRD (S/P/Bld) [Vol rate/Area] 64 mL/min/{1.73_m2} Normal >90 [facility] Comment on above: Result Comment: CALC ULATIONS OF ESTIMATED GFR ARE PERFORMED USING THE 2020 CKD-EPI STUDY REFIT EQUATION WITHOUT THE RACE VARIABLE FOR THE IDMS-TRACEABLE CREATININE METHODS. https://jasn.asnjournals.org/content/early//ASN.2020 013261 Performed By: #### C MP #### [address] [address] Glucose [Mass/Vol] 102 mg/dL High 74 - 99 [facility] Comment on above: Performed By: #### C MP #### [address] [address] HCO3 (Bld) [Moles/Vol] 30 mmol/L Normal 21 - 32 [facility] Comment on above: Performed By: #### C MP #### [address] [address] Potassium [Moles/Vol] 3.5 mmol/L Normal 3.5 - 5.3 [facility] Comment on above: Performed By: #### C MP #### [address] [address] Protein [Mass/Vol] 6.9 g/dL Normal 6.4 - 8.2 [facility] Comment on above: Performed By: #### C MP #### [address] [place] [address] Sodium [Moles/Vol] 139 mmol/L Normal 136 - 145 [facility] Comment on above: Performed By: #### C MP #### [address] [address] Urea nitrogen [Mass/Vol] 18 mg/dL Normal 6 - 23 [facility] Comment on above: Performed By: #### C MP #### [address] [address] Provider Note - ED v3on 11-19 Provider [...] and he was very swollen. Went to [facility] where they performed a catheterization and [...] tab(s) orally once a day -.Meds to [facility] Drug Name: ezetimibe 10 mg oral tablet Instructions: 1 tab(s) orally once a day -.Meds to [facility] Drug Name: clopidogrel 75 mg oral tablet Instructions: 1 tab(s) orally once a day -.Meds to [facility] Drug Name: aspirin 81 mg oral tablet, chewable Instructions: 1 tab(s) orally once a day -.Meds to [facility] Drug Name: polyethylene glycol 3350 oral powder for reconstitution Instructions: 17 gram(s) orally 2 times a day Drug Name: sennosides-docusate 8.6 mg-50 mg oral tablet Instructions: 2 tab(s) orally 2 times a day Drug Name: furosemide 40 mg oral tablet Instructions: 1 tab(s) orally once a day -.Me (more content not included)... Normal [facility] Risk Screen - Adult Emergenc yon 12-09-2021 [...] material; verbal instruction Cultural Considerationsnone Developmental Considerationsnone Sikhism Considerationsnone Learning Assessment (Other Learner): Learning Assessment [...] an injured patient at a Trauma Center ([facility]/[place] /[place]): no Electronic Signatures: Ann Rudd (JAZIEL) (Signed 09-Dec-2021 01:01) Authored: Preferred Language, Patient Preferred Pharmacy, Advanced Directives, Family Violence Adult, Learning Assessment (Patient), Learning Assessment (Other Learner), Pressure Injury/TB/Substance, Pressure Injury, CAGE Last Updated: 09-Dec-2021 01:01 by Ann Rudd (JAZIEL) Normal [facility] TROPONIN I, HIGH SENSITIVITY on 12-09-2021 TROPONIN I, HIGH SENSITIVITY 6 ng/L Normal 0 - 20 [facility] Comment on above: Result Comment: . Less [...] at [facility] than at other [facility]. Direct result comparisons should only be made within the same method. Performed By: #### [facility] #### [address] [address] TROPONIN I, HIGH SENSITIVITY 7 ng/L Normal 0 - 20 [facility] Comment on above: Result Comment: . Less [...] at [facility] than at other [facility]. Direct result comparisons should only be made within the same method. Performed By: #### T [facility] #### [address] [address] Tropinin I.cardiac panel High sensitivity method 6 ng/L 0 - 20 -Cardiolo [facility] [address] [place] Work Phone: Comment on above: .Less than [...] at [facility] than at other [facility]. Direct result comparisons should [...] obeys commands Best Verbal Response: (V5) oriented Byron Score: 15 Byron Assessment Qualifiers: patient not sedated/intubated Cough lasting [...] Travel History, Chart Review, Scores Jonna Brandt (JAZIEL) (Signed 08-Dec-2021 23:26) Authored: Quick Triage, Chart Review, Past Medical History Last Updated: 08-Dec-2021 23:26 by Jonna Brandt (RN) Normal [facility] Ancillary Visit (Sleep Lab)o n 12-08-2021 Ancillary [...] Dec 08 2021 11:46PM EST (Author) Normal [facility] Ancillary Visit (Sleep Lab) Risk Screening Initial [...] Dec 08 2021 11:47PM EST (Author) Normal [facility] Complete Blood Count + Diffe rentialon 12-08-2021 Basophils/100 WBC (Bld) 0.4 % 0.0 [...] above: . <100 pg/mL - Heart failure [id number] pg/mL - Intermediate probability of acute heart. failure exacerbation. Correlate with clinical. context and patient history. >=300 pg/mL - Heart Failure likely. Correlate with clinical. context and patient history.BNP testing is performed using different testing methodology at [facility] than at other [facility]. Direct result comparisons should only be made within the same method. 64 {mL/min/1.73m2} >90 [facility] [address] [place] Work Phone: Comment on above: CALCULATIONS OF LILI MATED GFR ARE PERFORMED USING THE 2020 CKD-EPI STUDY REFIT EQUATION WITHOUT THE RACE VARIABLE FOR THE IDMS-TRACEABLE CREATININE METHODS.https://jasn.asnjournals.org/content// ASN.2915055723 Radiologyon 12-08-2021 XR Chest Single view Normal MP-C ardiolo gy-[place] [address] [place] Work Phone: TROPONIN I, HIGH SENSITIVITY on 12-08-2021 Tropinin I.cardiac panel High sensitivity method 7 ng/L 0 - 20 -Cardiolo -[place] [address] [place] Work Phone: Comment on above: [...] at [facility] than at other [facility]. Direct result comparisons should only be made within the same method. Follow Up (Pulmonary Medicin e)on 11-27-2021 Follow Up (Pulmonary Medicine) Diagnoses/Problems SOB (shortness of breath) on exertion (786.05) (R06.02) Orders Bronch Provocation-Methacholine Challenge; Status:Active; Requested for:27Nov2021; Perform:[facility]; Due:25Feb2022;Ordered; For:SOB (shortness of breath) on exertion; Ordered By:Leta Lu; Cough Assist Device; Status:Active; Requested for:27Nov2021; Perform:Not Applicable; Due:07Dec2021;Ordered; For:SOB (shortness of breath) on exertion; Ordered By:Leta Lu; Spirometry; Status:Active; Requested for:27Nov2021; Perform:[facility]; Due:25Feb2022;Ordered; For:SOB (shortness of breath) [...] but no flu vaccine. 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 Normal [facility] - Chemistry and C hemistry - challengeon 11-27-2021 Anion gap [Moles/Vol] 12 mmol/L 10 - 20 MP- Cardiolo gy-[place] Work Phone: Calcium [Mass/Vol] 9.4 mg/dL 8.6 - 10.6 MP-Car diolo [facility]-[place] Work Phone: [phone] Chloride [Moles/Vol] 104 mmol/L 98 - 107 MP-C ardiolo gy-[place] Work Phone: CO2 [Moles/Vol] 31 mmol/L 21 - 32 MP-Cardio lo gy-[place] Work Phone: Creatinine [Mass/Vol] 1.40 mg/dL above high threshold See Below MP-Laz gy-[place] Work Phone: Comment on above: Reference Range: 0.5 0 - 1.30 Glucose [Mass/Vol] 94 mg/dL 74 - 99 MP-Car jco gy-[place] Work Phone: Natriuretic peptide B (Bld) [Mass/Vol] 144 pg/mL above high threshold 0 - 99 MP-Cardiolo gy-[place] Work Phone: Comment on above: . <100 pg/mL - Heart failure [id number] pg/mL - Intermediate probability of acute heart. [...] [Moles/Vol] 4.2 mmol/L 3.5 - 5.3 MP- Cardiodayanara gy-[place] Work Phone: Sodium [Moles/Vol] 143 mmol/L 136 - 145 MP-Billy shipman gy-[place] Work Phone: Urea nitrogen [Mass/Vol] 19 mg/dL 6 - 23 MP-Cardiodayanara gy-[place] Work Phone: No Panel Informationon 11-27 56 {mL/min/1.73m2} Abnormal >90 MP-Car diolo gy-[place] Work Phone: Comment on above: CALCULATIONS OF LILI MATED GFR ARE PERFORMED USING THE 2020 CKD-EPI STUDY REFIT EQUATION WITHOUT THE RACE VARIABLE FOR THE IDMS-TRACEABLE CREATININE METHODS.https://jasn.asnjournals.org/content// ASN.1331486460 Tobacco Screening.on 022 Adult depression screening assessment No [facility] [facility] Work Phone: Fall risk assessment a) No falls within the last year [facility] [facility] Work Phone: Tobacco use status [facility] b) No M G[facility] [facility] Work Phone: Blood Pressure Cuff Sizeon 0 11-14-2021 Tobacco use status [facility] b) No M P-Cardiolo gy-[place] [...] artery disease) Basic Metabolic Panel; Status:Active; Requested for:[id number]; Breathing difficulty, CAD (coronary artery disease), Hypertension Renew: Isosorbide Mononitrate ER 60 MG Oral Tablet Extended Release 24 Hour; Take 1 tablet daily Breathing difficulty, SOB (shortness of breath) on exertion Brain Natriuretic Peptide BNP; Status:Active; Requested for:[id number]; CAD (coronary artery disease) Renew: Furosemide 40 MG Oral Tablet; Take 1 tablet daily SOB (shortness of breath) on exertion In Lab [facility] Sleep Study, 6 years of age and greater; Status:Hold For - Scheduling; Requested for:[id number]; Non-ambulatory,wheelchai r,other physical limitations? : No Ensuresis(prep [...] with a 3.5 x 26 mm Resolute Rough And Ready stent History of Knee arthroscopy History of Knee surgery History of Thyroidectomy Past [employer] (more content not included)... Normal [facility] Bilirubin, Serum Direct - Co [facility] 11-01-2021 Bilirubin.direct [Mass/Vol] 0.2 mg/dL 0.0 - 0.3 [facility] Work Phone: Complete Blood Count + Lily briggs 11-01-2021 Basophils/100 WBC (Bld) 0.4 % 0.0 - 2.0 M [facility] Work Phone: Erythrocyte distribution width (RBC) [Ratio] 13.4 % See Below [facility] [facility] Work Phone: Comment on above: Reference Range: 11. 5 - 14.5 Hematocrit (Bld) [Volume fraction] 43.0 % See Below [facility] [facility] Work Phone: Comment on above: Reference Range: 41. 0 - 52.0 Hemoglobin (Bld) [Mass/Vol] 14.3 g/dL See Below [facility] Work Phone: Comment on above: Reference Range: 13. 5 - 17.5 Lymphocytes/100 WBC (Bld) 22.3 % See Below [facility] Work Phone: Comment on above: Reference Range: 13. 0 - 44.0 MCHC (RBC) [Mass/Vol] 33.3 g/dL See Below [facility] Work Phone: Comment on above: Reference Range: 32. 0 - 36.0 MCV (RBC) [Entitic vol] 95 fL 80 - 100 [facility] Work Phone: Monocytes/100 WBC (Bld) 8.6 % 2.0 - 10.0 M [facility] Work Phone: Neutrophils/100 WBC (Bld) 67.3 % See Below [facility] Work Phone: Comment on above: Reference Range: 40. 0 - 80.0 Platelets (Bld) [#/Vol] 155 10*3/uL 150 - 450 [facility] Work Phone: RBC (Bld) [#/Vol] 4.51 {x10E12/L} See Below MP -[facility]ul[facility]ar y [facility] Work Phone: [...] Ferritin [Mass/Vol] 187 ug/L 20 - 300 [facility] [place] [address] Work Phone: Gamma Glutamyl Transferase, Serumon 11-01-2021 Gamma glutamyl transferase [Catalytic activity/Vol] 27 U/L 5 - 64 [place] [address] Work Phone: Immunoglobulin E Level, Seru [facility] 11-01-2021 IgE Qn 373 {IU/mL} above high threshold 0 - 214 [place] [address] Work Phone: IgE Qn 386 {IU/mL} above high threshold 0 - 214 [place] [address] Work Phone: Laboratory - Chemistry and C hemistry - challenge 11-01-2021 Natriuretic peptide B (Bld) [Mass/Vol] 129 pg/mL above high threshold 0 - 99 [place] [address] Work Phone: Comment on above: . <100 pg/mL - Heart failure [id number] pg/mL - Intermediate probability of acute heart. [...] dye [Mass/Vol] 4.4 g/dL 3.4 - 5.0 [place] [address] Work Phone: ALP [Catalytic activity/Vol] 67 U/L 33 - 136 [place] [address] Work Phone: ALT With P-5'-P [Catalytic activity/Vol] 16 U/L 10 - 52 [facility] Work Phone: Comment on above: Patients treated wit h Sulfasalazine may generate falsely decreased results for ALT. Anion gap [Moles/Vol] 11 mmol/L 10 - 20 MP- [facility] Work Phone: AST With P-5'-P [Catalytic activity/Vol] 14 U/L 9 - 39 [facility] Work Phone: Bilirubin [Mass/Vol] 0.9 mg/dL 0.0 - 1.2 MP-P ulmonar y Medicine-[place] Work Phone: Calcium [Mass/Vol] 9.6 mg/dL 8.6 - 10.3 MP-Pul monar y [facility] Work Phone: Chloride [Moles/Vol] 105 mmol/L [...] 6 Work Phone: 66 {mL/min/1.73m2} >90 MP-Pul temoar y [facility] Work Phone: Comment on above: CALCULATIONS OF LILI MATED GFR ARE PERFORMED USING THE 2020 CKD-EPI STUDY REFIT EQUATION WITHOUT THE RACE VARIABLE FOR THE IDMS-TRACEABLE CREATININE METHODS.https://jasn.asnjournals.org/content// ASN.4185915705 Reticulocyte Counton 022 Reticulocyte Count 36 pg 28 - 38 MP-Pul temoar y [facility] Work Phone: Reticulocyte Count 13.8 % 0.0 - 16.0 MP-Pul monar y [facility] Work Phone: Reticulocyte Count 0.074 {x10E12/L} See Below [facility] Work Phone: Comment on above: Reference Range: 0.0 22 - 0.118 Reticulocyte Count 1.6 % 0.5 - 2.0 MP-Pul monar y [facility] Work Phone: CARDIAC STRESS/REST INJECTIO Non 10-26-2021 CARDIAC STRESS/REST INJECTION Patient Name: FREDDIE COLE STUDY: CARDIAC STRESS/REST INJECTION; PART 2 STRESS OR REST (NO CHARGE); CARDIAC STRESS/REST (MYOCARDIAL PERFUSION/MIBI); 10/26/2021 10:29 am INDICATION: SIGNIFICANT SHORTNESS OF BREATH R06.89: Breathing difficulty I25.10: CAD (coronary artery disease). COMPARISON: None. ACCESSION NUMBER(S): [id number]; [id number]; [id number] ORDERING CLINICIAN: JAYNE MENDENHALL TECHNIQUE: DIVISION OF [...] 65% Electronically signed by: DO Ester MONTOYA [facility] No Panel Informationon 10-26 Normal MP-Cardiolo gy-[place] [address] [place] Work Phone: Please click on the link to view the study images Normal [facility] Work Phone: MP-Cardiolo gy-[place] [address] [place] Work Phone: Syngo Nuclear Orderon 2021 Syngo Nuclear Order [facility] , [address] [facility] [place] [address] and Nuclear Pharmacologic Stress Test Patient Name: FREDDIE COLE Ordering Physician: Jayne Godinez Study Date: 10/26/2021 Reading Physician: [id number] Nevin Rogers MD MRN/PID: [id number] Supervising [id number] Jaime Boateng MD Physician: Accession/Order#: [id number] Referring Physician: [id number] JAYNE GODINEZ Date of : 1960 PCP: Gender: M Fellow: Admit Date: 10/26/2021 Fellow: Admission Status: Outpatient Molded Parts Inspector: Jazlyn Hayes Height: 175.26 cm Nurse: Lana Diego RN Weight: 100.70 kg Project Coach: EDUARDO BSA: 2.16 m2 Technologist: BMI: 32.78 kg/m2 Additional Staff: Age: 61 years cc report to: Patient Location: [place] cc report to: Jayne Godinez Radiology Study Type: Syngo Nuclear Order Diagnosis/ICD: I25.10-Atherosclerotic heart disease; R06.89-Other abnormalities of breathing Indication: Dyspnea, Hypertension and hyperlipidemia Procedure/CPT: Stress Test Interpretation-[id number]; Stress Test Supervision-[id number] Falls Risk: Study Details: Correct procedure and correct patient verified verbally. Patient History: . 61y/o male presents to be evaluated for CAD and shortness of breath. PMH: HTN, hyperlipidemia, stent RCA 05/2021, DVT, Graves disease, diastolic CHF, laryngeal spasms, quit smoking 04/2021, denies family hx of CAD. Allergies: Gemtesa. Medications: The patient's prescribed medication is Isosorbide Greene (last dose 10/25), ASA, Atorvastatin, Plavix, Ezetimibe, [...] ----+-------+ ---+ Stage I 90 130 85 mary KUHN CP + +--+-- ----+-------+ ---+ Recovery ECG: [...] 3. Nuclear image results are reported separately. [id number] Nevin Rogers MD Electronically signed on 10/27/2021 at 2:20:11 PM Final Normal [facility] Blood Pressure Cuff Sizeon 0 10-11-2021 Adult [...] [facility] Complete Blood Count + Diffe birgitte 10-04-2021 Basophils/100 WBC (Bld) 0.1 % 0.0 [...] above high threshold 0 - 99 [facility] Work Phone: Comment on above: . <100 pg/mL - Heart failure -466 pg/mL - Intermediate probability of acute heart. [...] for further information. No Panel Informationon 09-11 [email or web address]& Date=11-09-2021&Time=14% [id number]%3a01%3a00&TestType= ECG&Site=1&OutputType=PD F&Ext=PDF [facility] Work Phone: Sinus rhythm with Premature ventricular complexes [facility] Work Phone: Borderline Abnormal MP-Ca rdiolo gy-[place] Work Phone: [phone] [facility] Work Phone: [phone] [facility] Work Phone: [phone] [facility] Work Phone: [phone] [facility] Work Phone: [phone] [facility] Work Phone: [phone] [facility] Work Phone: [phone] [facility] Work Phone: 6 [phone] [facility] Work Phone: [phone] [facility] Work Phone: [phone] [facility] Work Phone: [phone] [facility] Work Phone: [phone] [facility] Work Phone: [phone] [facility] Work Phone: [phone] [facility] Work Phone: [facility] TSH Qn 1.10 m[IU]/L See Below MP-Cardiol[facility] Work Phone: Comment on above: Reference Range: 0.4 4 - 3.98 TSH testing is performed using different testing methodology at [facility] than at other [facility]. Direct result comparisons should only be [...] (Bld) 0.3 % 0.0 - 2.0 M M Squared Lasersmyra MersimoMeche YANCEYBoomerang [place] Work Phone: Erythrocyte distribution width (RBC) [Ratio] 13.0 % See Below PetrotechnicsOtmyra ZeomatrixrejiPetrotechnicsEast [place] MOBBoomerang [place] Work Phone: Comment on above: Reference Range: 11. 5 - 14.5 Hematocrit (Bld) [Volume fraction] 40.6 % below low threshold See Below Stereomood-Otolaryn CapricoryPetrotechnicsEast Hartland [facility] Work Phone: Comment on above: Reference Range: 41. 0 - 52.0 Hemoglobin (Bld) [Mass/Vol] 13.3 g/dL below low threshold See Below Biziblemyra MersimoEast Hartland [facility] Work Phone: Comment on above: Reference Range: 13. 5 - 17.5 Lymphocytes/100 WBC (Bld) 25.6 % See Below Goumin.comOtPrexa Pharmaceuticalson [facility] [employer] (formerly known as [employer]) Work Phone: Comment on above: Reference Range: 13. 0 - 44.0 MCHC (RBC) [Mass/Vol] 32.8 g/dL See Below Goumin.com Otmyra MersimoMeche [facility] Work Phone: Comment on above: Reference Range: 32. 0 - 36.0 MCV (RBC) [Entitic vol] 95 fL 80 - 100 M M Squared Laserschatsworthbayron MersimoEast Hartland [address] Work Phone: Monocytes/100 WBC (Bld) 8.9 % 2.0 - 10.0 M GPDVmyra MersimoEast Hartland [facility] [place] Work Phone: Neutrophils/100 WBC (Bld) 63.9 % See Below Goumin.comOtmyra ZeomatrixsruthiintroNetworksEast Hartland [facility] [place] Work Phone: Comment on above: Reference Range: 40. 0 - 80.0 Platelets (Bld) [#/Vol] 153 10*3/uL 150 - 450 MGPetrotechnicsOtolaryn gology-[place]ec[place] MOB02 [place] Work Phone: RBC (Bld) [#/Vol] 4.28 {x10E12/L} below low threshold See Below MG-Otolaryn gology-[place] MOB02 [place] Work Phone: Comment on above: Reference Range: 4.5 0 - 5.90 WBC (Bld) [#/Vol] 6.3 10*3/uL 4.4 - 11.3 MG-[place] laryn gology-[place] MOB02 [place] Work Phone: Complete Blood Count + Differential 0.02 {x10E9/L} See Below MG-Otolaryn gology-[place] MOB02 [place] Work Phone: Comment on above: Reference Range: 0.0 0 - 0.10 Complete Blood Count + Differential 0.08 {x10E9/L} See Below MG-Otolaryn gology-[place] MOB02 [place] Work Phone: Comment on above: Reference Range: 0.0 0 - 0.70 Complete Blood Count + Differential 0.56 {x10E9/L} See Below MG-Otolaryn gology-[place] MOB02 [place] Work Phone: Comment on above: Reference Range: 0.1 0 - 1.00 Complete Blood Count + Differential 1.60 {x10E9/L} See Below MG-Otolaryn gology-[place] MOB02 [place] Work Phone: Comment on above: Reference Range: 1.2 0 - 4.80 Complete Blood Count + Differential 4.00 {x10E9/L} See Below MG-Otolaryn gology-[place] MOB02 [place] Work Phone: Comment on above: Reference Range: 1.2 0 - 7.70 Percent differential counts (%) should be interpreted in the context of the absolute cell counts (cells/L). Complete Blood Count + Differential 1.3 % 0.0 - 6.0 MG-Otolaryn gology-[place] MOB02 [place] Work Phone: Blood Pressure Cuff Sizeon 0 06-23-2021 Tobacco use status CPHS b) No M [facility] Com[facility] 6 Sleep Work Phone: Blood Pressure Cuff Size Adult [facility] ncyclowell 6 Sleep Work Phone: Tobacco Screening.on 022 Fall risk assessment a) No falls within the last year [facility] [facility] Work Phone: Tobacco use status [facility] b) No M G-[facility] [facility] 6 Sleep Work Phone: Complete Blood Count + Diffe walion 06-08-2021 Basophils/100 WBC (Bld) 0.5 % 0.0 - 2.0 M SidenseIzaiah Benítez Work Phone: Erythrocyte distribution width (RBC) [Ratio] 12.4 % See Below [employer] Work Phone: Comment on above: Reference Range: 11. 5 - 14.5 Hematocrit (Bld) [Volume fraction] 42.6 % See Below [employer] Work Phone: Comment on above: Reference Range: 41. 0 - 52.0 Hemoglobin (Bld) [Mass/Vol] 13.9 g/dL See Below [employer] Work Phone: Comment on above: Reference Range: 13. 5 - 17.5 Lymphocytes/100 WBC (Bld) 18.7 % See Below [employer] Work Phone: Comment on above: Reference Range: 13. 0 - 44.0 MCHC (RBC) [Mass/Vol] 32.6 g/dL See Below [employer] Work Phone: Comment on above: Reference Range: 32. 0 - 36.0 MCV (RBC) [Entitic vol] 98 fL 80 - 100 M JinggaMall.comlas Benítez Work Phone: Monocytes/100 WBC (Bld) 9.6 % 2.0 - 10.0 M JinggaMall.comlas Benítez Work Phone: Neutrophils/100 WBC (Bld) 69.0 % See Below MG-Medicine -Izaiah Benítez Work Phone: Comment on above: Reference Range: 40. 0 - 80.0 Platelets (Bld) [#/Vol] 164 10*3/uL 150 - 450 MG-Medicine -Izaiah Benítez Work Phone: RBC (Bld) [#/Vol] 4.35 {x10E12/L} below low threshold See Below MG-Medicine -Izaiah Benítez Work Phone: Comment on above: Reference Range: 4.5 0 - 5.90 WBC (Bld) [#/Vol] 7.3 10*3/uL 4.4 - 11.3 MG-Med icine -Izaiah Benítez Work Phone: Complete Blood Count + Differential 0.04 {x10E9/L} See Below MG-Medicine -Izaiah Benítez Work Phone: Comment on above: Reference Range: 0.0 0 - 0.10 Complete Blood Count + Differential 0.13 {x10E9/L} See Below MG-Medicine -Izaiah Benítez Work Phone: Comment on above: Reference Range: 0.0 0 - 0.70 Complete Blood Count + Differential 0.70 {x10E9/L} See Below MG-Medicine -Izaiah Benítez Work Phone: Comment on above: Reference Range: 0.1 0 - 1.00 Complete Blood Count + Differential 1.36 {x10E9/L} See Below MG-Medicine -Izaiah Benítez Work Phone: Comment on above: Reference Range: 1.2 0 - 4.80 Complete Blood Count + Differential 5.02 {x10E9/L} See Below MG-Medicine -Izaiah Benítez Work Phone: Comment on above: Reference Range: 1.2 0 - 7.70 Complete Blood Count + Differential 1.8 % 0.0 - 6.0 MG-Medicine -Izaiah Benítez Work Phone: Complete Blood Count + Differential 0.4 % 0.0 - 0.9 MG-[facility] Benítez Work Phone: Comment on above: Immature Granulocyte Count (IG) includes promyelocytes, myelocytes and metamyelocytes but does not include bands. Percent differential counts (%) should be interpreted in the context of the absolute cell counts (cells/L). Complete Blood Count + Differential 0.0 {/100_WBC} 0.0-0.0 MG-[facility] Work Phone: Laboratory - Chemistry and C hemistry - challengeon 06-08-2021 Albumin BCP dye [Mass/Vol] 4.0 g/dL 3.4 - 5.0 [facility] Work Phone: ALP [Catalytic activity/Vol] 80 U/L 33 - 136 [facility] Work Phone: ALT With P-5'-P [Catalytic activity/Vol] 22 U/L 10 - 52 [facility] Work Phone: Comment on above: Patients treated wit h Sulfasalazine may generate falsely decreased results for ALT. Anion gap [Moles/Vol] 16 mmol/L 10 - 20 MG- [facility] Benítez Work Phone: AST With P-5'-P [Catalytic activity/Vol] 25 U/L 9 - 39 [facility] Work Phone: Bilirubin [Mass/Vol] 0.9 mg/dL 0.0 - 1.2 MG-[facility] memorialIzaiah Benítez Work Phone: Calcium [Mass/Vol] 9.6 mg/dL 8.6 - 10.6 MG-Med icine [facility] [employer] Work Phone: Chloride [Moles/Vol] 98 mmol/L 98 - 107 MG-M edicine [facility] Benítez Work Phone: CO2 [Moles/Vol] 29 mmol/L 21 - 32 MG-Medici ne [facility] Benítez Work Phone: Creatinine [Mass/Vol] 1.18 mg/dL See Below ISRA Benítez Work Phone: Comment on above: Reference Range: 0.5 0 - 1.30 Glucose [Mass/Vol] 81 mg/dL 74 - 99 MG-Wil Benítez Work Phone: Potassium [Moles/Vol] 3.7 mmol/L 3.5 - 5.3 ISRA Benítez Work Phone: Protein [Mass/Vol] 6.6 g/dL 6.4 - 8.2 Serena Benítez Work Phone: Sodium [Moles/Vol] 139 mmol/L 136 - 145 -Wil Benítez Work Phone: Urea nitrogen [Mass/Vol] 17 mg/dL 6 - 23 Dominique Benítze Work Phone: Magnesium, Serumon 2 Magnesium [Mass/Vol] 2.00 mg/dL See Below ADI Benítez Work Phone: Comment on above: Reference Range: 1.6 0 - 2.40 No Panel Informationon 06-08 69 {mL/min/1.73m2} >90 Serena Benítez Work Phone: Comment on above: CALCULATIONS OF LILI MATED GFR ARE PERFORMED USING THE 2020 CKD-EPI STUDY REFIT EQUATION WITHOUT THE RACE VARIABLE FOR THE IDMS-TRACEABLE CREATININE METHODS.https://jasn.asnjournals.org/content/early/ ASN.7188816512 Laboratory - Hematology and Cell countson 06-07-2021 Erythrocyte distribution width (RBC) [Ratio] 12.5 % See Below Dominique Benítez Work Phone: Comment on above: Reference Range: 11. 5 - 14.5 Hematocrit (Bld) [Volume fraction] 41.0 % See Below Dominique Benítez Work Phone: Comment on above: Reference Range: 41. 0 - 52.0 Hemoglobin (Bld) [Mass/Vol] 13.3 g/dL below low threshold See Below MG-Medicine -Izaiah Benítez Work Phone: Comment on above: Reference Range: 13. 5 - 17.5 MCHC (RBC) [Mass/Vol] 32.4 g/dL See Below MG- Medicine -Izaiah Benítez Work Phone: Comment on above: Reference Range: 32. 0 - 36.0 MCV (RBC) [Entitic vol] 100 fL 80 - 100 M G-Medicine -Izaiah Benítez Work Phone: Platelets (Bld) [#/Vol] 148 10*3/uL below lo w threshold 150 - 450 MG-Medicine Sharon Benítez Work Phone: [phone] RBC (Bld) [#/Vol] 4.08 {x10E12/L} below low threshold See Below MG-Medicine Sharon Benítez Work Phone: Comment on above: Reference Range: 4.5 0 - 5.90 WBC (Bld) [#/Vol] 6.9 10*3/uL 4.4 - 11.3 MG-Med icine -Izaiah Benítez Work Phone: No Panel Informationon 06-07 0.0 {/100_WBC} 0.0-0.0 MG-Medicin e Sharon Benítez Work Phone: Renal Function Panelon 06-07 Albumin BCP dye [Mass/Vol] 3.8 g/dL 3.4 - 5.0 MG-Medicine -Izaiah Benítez Work Phone: Anion gap [Moles/Vol] 11 mmol/L 10 - 20 MG- Medicine -Izaiah Benítez Work Phone: Calcium [Mass/Vol] 9.4 mg/dL 8.6 - 10.6 MG-Med icine -Izaiah Benítez Work Phone: Chloride [Moles/Vol] 102 mmol/L 98 - 107 MG-M edicine -Izaiah Benítez Work Phone: CO2 [Moles/Vol] 30 mmol/L 21 - 32 MG-Medici ne -Izaiah Benítez Work Phone: Creatinine [Mass/Vol] 1.18 mg/dL See Below - Pierce Benítez Work Phone: Comment on above: Reference Range: 0.5 0 - 1.30 Glucose [Mass/Vol] 80 mg/dL 74 - 99 MG-Med colette Benítez Work Phone: Phosphate [Mass/Vol] 4.0 mg/dL 2.5 - 4.9 MG-M edicine Sharon Benítez Work Phone: Comment on above: The performance peggy acteristics of phosphorus testing in heparinized plasma have been validated by the individual laboratory site where testing is performed. Testing on heparinized plasma is not approved by the FDA; however, such approval is not necessary. Potassium [Moles/Vol] 4.5 mmol/L 3.5 - 5.3 MG- Pierce Benítez Work Phone: Sodium [Moles/Vol] 138 mmol/L 136 - 145 MG-[facility] colette Benítez Work Phone: Urea nitrogen [Mass/Vol] 18 mg/dL 6 - 23 MG-Pierce Benítez Work Phone: Renal Function Panel 69 {mL/min/1.73m2} >90 [facility] Ben[facility]tez Work Phone: Comment on above: CALCULATIONS OF LILI MATED GFR ARE PERFORMED USING THE 2020 CKD-EPI STUDY REFIT EQUATION WITHOUT THE RACE VARIABLE FOR THE IDMS-TRACEABLE CREATININE METHODS.https://jasn.asnjournals.org/content// ASN.3778987495 HIV 1/2 ANTIGEN/ANTIBODY SCR EEN WITH REFLEX TO CONFIRMATIONon 06-06-2021 HIV 1+2 Ab Qn (S) Non-Reactive See Below MG-Ks dicine Sharon Benítez Work Phone: Comment on above: SOURCE: Reference Ra nge: NONREACTIVE HIV Ag/Ab screen is performed using the Siemens Atell[employer] HIV Ag/Ab Combo assay which detects the presence of HIV p24 antigen as well as antibodies to HIV-1 (Group M and O) and HIV-2..No laboratory evidence of HIV infection. If acute HIV infection is suspected, consider testing for HIV RNA by PCR (viral load). Magnesium, Serumon 2 Magnesium [Mass/Vol] 2.23 mg/dL See Below MG-M edicine -Izaiah Benítez Work Phone: Comment on above: Reference Range: 1.6 0 - 2.40 No Panel Informationon 06-06 266 {SECONDS} above high threshold 89 - 169 MG-Medicine -Izaiah Benítez Work Phone: Comment on above: Note new reference r ana as of 05/23/2018. Target ACT range will vary based on the patient population, clinical status, and surgical intervention occurring. 288 {SECONDS} above high threshold 89 - 169 MG-Medicine -Izaiah Benítez Work Phone: Comment on above: Note new reference r ana as of 05/23/2018. Target ACT range will vary based on the patient population, clinical status, and surgical intervention occurring. MG-Medicine -Izaiah Benítez Work Phone: Renal Function Panelon 06-06 Albumin BCP dye [Mass/Vol] 4.0 g/dL 3.4 - 5.0 MG-Medicine -Izaiah Benítez Work Phone: Anion gap [Moles/Vol] 11 mmol/L 10 - 20 MG- Medicine -Izaiah Benítez Work Phone: Calcium [Mass/Vol] 9.3 mg/dL 8.6 - 10.6 MG-Med icine -Izaiah Benítez Work Phone: Chloride [Moles/Vol] 103 mmol/L 98 - 107 MG-M edicine Sharon Benítez Work Phone: CO2 [Moles/Vol] 31 mmol/L 21 - 32 MG-Medici ne -Izaiah Benítez Work Phone: Creatinine [Mass/Vol] 1.21 mg/dL See Below MG- Medicine -Izaiah Benítez Work Phone: Comment on above: Reference Range: 0.5 0 - 1.30 Glucose [Mass/Vol] 87 mg/dL 74 - 99 MG-Wil Benítez Work Phone: Phosphate [Mass/Vol] 3.9 mg/dL [...] Sodium [Moles/Vol] 141 mmol/L 136 - 145 MG-Wil Benítez Work Phone: Urea nitrogen [Mass/Vol] 21 mg/dL 6 - 23 MG-Pierce Benítez Work Phone: Renal Function Panel 67 {mL/min/1.73m2} >90 MG-Pierce Benítez Work Phone: Comment on above: CALCULATIONS OF LILI MATED GFR ARE PERFORMED USING THE 2020 CKD-EPI STUDY REFIT EQUATION WITHOUT THE RACE VARIABLE FOR THE IDMS-TRACEABLE CREATININE METHODS.https://jasn.asnjournals.org/content// ASN.0098457669 CT Angio Coronary Arteries w ith Heart Flowon 06-05-2021 CT Angio Coronary Arteries with Heart Flow Normal MG-Pierce Benítez Work Phone: Magnesium, Serumon 2 Magnesium [Mass/Vol] 2.11 mg/dL See Below MG-M gerber Benítez Work Phone: Comment on above: Reference Range: 1.6 0 - 2.40 Renal Function Panelon 06-05 Albumin BCP dye [Mass/Vol] 4.3 g/dL 3.4 - 5.0 MG-Pierce Benítez Work Phone: Anion gap [Moles/Vol] 14 mmol/L 10 - 20 MG- Pierce Benítez Work Phone: [phone] Calcium [Mass/Vol] 9.9 mg/dL 8.6 - 10.6 MG-Med colette Benítez Work Phone: Chloride [Moles/Vol] 100 mmol/L 98 - 107 MG-M edicine Sharon Benítez Work Phone: [phone] CO2 [Moles/Vol] 31 mmol/L 21 - 32 MG-Medici ne Sharon Benítez Work Phone: [phone] Creatinine [Mass/Vol] 1.14 mg/dL See Below MG- Pierce Benítez Work Phone: Comment on above: Reference Range: 0.5 0 - 1.30 Glucose [Mass/Vol] 114 mg/dL above high threshold 74 - 99 MG-Pierce Benítez Work Phone: Phosphate [Mass/Vol] 3.8 mg/dL 2.5 - 4.9 MG-M gerber Benítez Work Phone: [phone] Comment on above: The performance peggy acteristics [...] colette Benítez Work Phone: Urea nitrogen [Mass/Vol] 18 mg/dL 6 - 23 MG-Pierce Benítez Work Phone: Renal Function Panel 72 {mL/min/1.73m2} >90 MG-Pierce Benítez Work Phone: Comment on above: CALCULATIONS OF LILI MATED GFR ARE PERFORMED USING THE 2020 CKD-EPI STUDY REFIT EQUATION WITHOUT THE RACE VARIABLE FOR THE IDMS-TRACEABLE CREATININE METHODS.https://jasn.asnjournals.org/content// ASN.2808237300 Complete Blood Count + Diffe brigitte 06-04-2021 Basophils/100 WBC (Bld) 0.6 % 0.0 - 2.0 M Pierce Benítez Work Phone: Erythrocyte distribution width (RBC) [Ratio] 12.5 % See Below SpaBookerIzaiah Benítez Work Phone: Comment on above: Reference Range: 11. 5 - 14.5 Hematocrit (Bld) [Volume fraction] 44.8 % See Below PetrotechnicsPierce Benítez Work Phone: Comment on above: Reference Range: 41. 0 - 52.0 Hemoglobin (Bld) [Mass/Vol] 14.3 g/dL See Below SpaBookerIzaiah Benítez Work Phone: Comment on above: Reference Range: 13. 5 - 17.5 Lymphocytes/100 WBC (Bld) 23.3 % See Below Goumin.comPierce PetrotechnicsIzaiah Benítez Work Phone: Comment on above: Reference Range: 13. 0 - 44.0 MCHC (RBC) [Mass/Vol] 31.9 g/dL below low threshold See Below Goumin.comPierce Benítez Work Phone: Comment on above: Reference Range: 32. 0 - 36.0 MCV (RBC) [Entitic vol] 98 fL 80 - 100 M PetrotechnicsPierce Benítez Work Phone: Monocytes/100 WBC (Bld) 9.1 % 2.0 - 10.0 M PetrotechnicsPierce PetrotechnicsIzaiah Benítez Work Phone: Neutrophils/100 WBC (Bld) 64.1 % See Below Goumin.comPierce Benítez Work Phone: Comment on above: Reference Range: 40. 0 - 80.0 Platelets (Bld) [#/Vol] 179 10*3/uL 150 - 450 Goumin.comPierce Benítez Work Phone: RBC (Bld) [#/Vol] 4.55 {x10E12/L} See Below SpaBookerIzaiah Benítez Work Phone: Comment on above: Reference Range: 4.5 0 - 5.90 WBC (Bld) [#/Vol] 7.2 10*3/uL 4.4 - 11.3 -[facility] Sharon Benítez Work Phone: Complete Blood Count + Differential 0.04 {x10E9/L} See Below [facility] Ben[facility] Work Phone: Comment on above: Reference Range: 0.0 0 - 0.10 Complete Blood Count + Differential 0.18 {x10E9/L} See Below PetrotechnicsPierce Benítez Work Phone: Comment on above: Reference Range: 0.0 0 - 0.70 Complete Blood Count + Differential 0.65 {x10E9/L} See Below SpaBookerIzaiah Benítez Work Phone: Comment on above: Reference Range: 0.1 0 - 1.00 Complete Blood Count + Differential 1.67 {x10E9/L} See Below PetrotechnicsPierce Benítez Work Phone: Comment on above: Reference Range: 1.2 0 - 4.80 Complete Blood Count + Differential 4.61 {x10E9/L} See Below PetrotechnicsPierce Benítez Work Phone: Comment on above: Reference Range: 1.2 0 - 7.70 Complete Blood Count + Differential 2.5 % 0.0 - 6.0 Pierce Benítez Work Phone: Complete Blood Count + Differential 0.4 % 0.0 - 0.9 Pierce Benítez Work Phone: Comment on above: Immature Granulocyte Count (IG) includes promyelocytes, myelocytes and metamyelocytes but does not include bands. Percent differential counts (%) should be interpreted in the context of the absolute cell counts (cells/L). Complete Blood Count + Differential 0.0 {/100_WBC} 0.0-0.0 MG-Pierce PetrotechnicsIzaiah [facility] [employer] Work Phone: Hemoglobin A1Con 06-04-2021 Glucose [Mass/Vol] 105 mg/dL MG-Med icine PetrotechnicsIzaiah [facility] Work Phone: HbA1c (Bld) [Mass fraction] 5.3 % MG-Pluristem TherapeuticsIzaiah [facility] Work Phone: Comment on above: Diagnosis of Diabete s-Adults Non-Diabetic: < or = 5.6% Increased risk for developing diabetes: 5.7-6.4% Diagnostic of diabetes: > or = 6.5%. Monitoring of Diabetes Age (y) Therapeutic Goal (%) Adults: >18 <7.0 Pediatrics: 13-18 <7.5 7-12 <8.0 0- 6 7.5-8.5 [place] [employer]. Diabetes Care 33(S1), Feb 2009. Lipid Panelon 06-04-2021 Cholesterol [Mass/Vol] 189 mg/dL 0 - 199 MG -[employer] Work Phone: Comment on above: . AGE [...] dosing. Cholesterol in HDL [Mass/Vol] 49.1 mg/dL Stereomood-[employer] Work Phone: Comment on above: . AGE VERY LOW LOW N ORMAL HIGH 0-19 Y < 35 < 40 40-45 ---- 20-24 Y ---- < 40 >45 ---- >24 Y ---- < 40 40-60 >60. Cholesterol in LDL [Mass/Vol] 109 mg/dL above high threshold 0 - 99 MG-[employer] Work Phone: Comment on above: . NEAR BORD AGE SOBIA RABLE OPTIMAL HIGH HIGH VERY HIGH 0-19 Y 0 - 109 --- 110-129 >/= 130 ---- 20-24 Y 0 - 119 --- 120-159 >/= 160 ---- >24 Y 0 - 99 100-129 130-159 160-189 >/=190. Cholesterol.total/Jelly sterol in HDL [Mass ratio] 3.8 {ratio} MG-Pluristem TherapeuticsIzaiah [facility] Work Phone: Comment on above: REF VALUESDESIRABLE < 3.4HIGH RISK > 5.0 Triglyceride [Mass/Vol] 153 mg/dL above hi gh threshold 0 - 149 MG-[employer] Work Phone: Comment on above: . AGE [...] Panel 31 mg/dL 0 - 40 MG-Medicine PetrotechnicsIzaiah [facility] Work Phone: Renal Function Panelon 06-04 Albumin BCP dye [Mass/Vol] 4.3 g/dL 3.4 - 5.0 MG-Medicine PetrotechnicsIzaiah [facility] [employer] Work Phone: Anion gap [Moles/Vol] 13 mmol/L 10 - 20 MG- Medicine PetrotechnicsIzaiah [facility] Work Phone: Calcium [Mass/Vol] 9.8 mg/dL 8.6 - 10.6 MG-Med icine [employer] Work Phone: Chloride [Moles/Vol] 102 mmol/L 98 - 107 MG-M edicine -Izaiah [facility] Work Phone: CO2 [Moles/Vol] 30 mmol/L 21 - 32 MG-Medici ne Sharon Benítez Work Phone: Creatinine [Mass/Vol] 1.08 mg/dL See Below MG- Medicine Sharon Benítez Work Phone: Comment on above: Reference Range: 0.5 0 - 1.30 Glucose [Mass/Vol] 86 mg/dL 74 - 99 MG-Med colette Benítez Work Phone: Phosphate [Mass/Vol] 3.8 mg/dL 2.5 - 4.9 MG-M gerber Benítez Work Phone: Comment on above: The performance peggy acteristics of phosphorus testing in heparinized plasma have been validated by the individual laboratory site where testing is performed. Testing on heparinized plasma is not approved by the FDA; however, such approval is not necessary. Potassium [Moles/Vol] 4.4 mmol/L 3.5 - 5.3 MG- Pierce Benítez Work Phone: Sodium [Moles/Vol] 141 mmol/L 136 - 145 -Med colette Benítez Work Phone: Urea nitrogen [Mass/Vol] 18 mg/dL 6 - 23 MG-Pierce Benítez Work Phone: Renal Function Panel 77 {mL/min/1.73m2} >90 MG-Pierce Benítez Work Phone: Comment on above: CALCULATIONS OF LILI MATED GFR ARE PERFORMED USING THE 2020 CKD-EPI STUDY REFIT EQUATION WITHOUT THE RACE VARIABLE FOR THE IDMS-TRACEABLE CREATININE METHODS.https://jasn.asnjournals.org/content/early/ ASN.7365796609 Troponin I, Serumon 06-05-19 Troponin I.cardiac [Mass/Vol] 0.49 ng/mL above high threshold See Below -Pierce Benítez Work Phone: [...] at [facility] than at other [facility]. Direct result comparisons should only be made within the same method.. Biotin interference may cause falsely decreased results. Patients taking a Biotin dose of up to 5 mg/day should refrain from taking Biotin for 24 hours before sample collection. Providers may contact their laboratory for further information. Complete Blood Count + Richardrobert briggs 06-03-2021 Basophils/100 WBC (Bld) 0.4 % 0.0 - 2.0 M [employer] Work Phone: Erythrocyte distribution width (RBC) [Ratio] 12.4 % See Below [facility] Work Phone: Comment on above: Reference Range: 11. 5 - 14.5 Hematocrit (Bld) [Volume fraction] 38.3 % below low threshold See Below [facility] Work Phone: Comment on above: Reference Range: 41. 0 - 52.0 Hemoglobin (Bld) [Mass/Vol] 13.3 g/dL below low threshold See Below [facility] Work Phone: Comment on above: Reference Range: 13. 5 - 17.5 Lymphocytes/100 WBC (Bld) 22.5 % See Below [facility] Bancorplas Benítez Work Phone: Comment on above: Reference Range: 13. 0 - 44.0 MCHC (RBC) [Mass/Vol] 34.7 g/dL See Below [facility] [employer] Work Phone: Comment on above: Reference Range: 32. 0 - 36.0 MCV (RBC) [Entitic vol] 93 fL 80 - 100 M Pierce Benítez Work Phone: Monocytes/100 WBC (Bld) 9.6 % 2.0 - 10.0 M G-Pierce Benítez Work Phone: Neutrophils/100 WBC (Bld) 65.6 % See Below -Pierce Benítez Work Phone: Comment on above: Reference Range: 40. 0 - 80.0 Platelets (Bld) [#/Vol] 154 10*3/uL 150 - 450 MG-Pierce Benítez Work Phone: RBC (Bld) [#/Vol] 4.13 {x10E12/L} below low threshold See Below -Pierce Benítez Work Phone: Comment on above: Reference Range: 4.5 0 - 5.90 WBC (Bld) [#/Vol] 6.9 10*3/uL 4.4 - 11.3 MG-Med [facility] Sharon Benítez Work Phone: Complete Blood Count + Differential 0.03 {x10E9/L} See Below Dominique Benítez Work Phone: Comment on above: Reference Range: 0.0 0 - 0.10 Complete Blood Count + Differential 0.11 {x10E9/L} See Below -Pierce Benítez Work Phone: Comment on above: Reference Range: 0.0 0 - 0.70 Complete Blood Count + Differential 0.66 {x10E9/L} See Below -Pierce Benítez Work Phone: Comment on above: Reference Range: 0.1 0 - 1.00 Complete Blood Count + Differential 1.55 {x10E9/L} See Below MG-Pierce Benítez Work Phone: Comment on above: Reference Range: 1.2 0 - 4.80 Complete Blood Count + Differential 4.51 {x10E9/L} See Below -Pierce Benítez Work Phone: Comment on above: Reference Range: 1.2 0 - 7.70 Complete Blood Count + Differential 1.6 % 0.0 - 6.0 Gou[employer].comPierce PetrotechnicsIzaiah Benítez Work Phone: Complete Blood Count + Differential 0.3 % 0.0 - 0.9 Goumin.comPierce Herrera Benítez Work Phone: Comment on above: Immature Granulocyte Count (IG) includes promyelocytes, myelocytes and metamyelocytes but does not include bands. Percent differential counts (%) should be interpreted in the context of the absolute cell counts (cells/L). Complete Blood Count + Differential 0.0 {/100_WBC} 0.0-0.0 Goumin.comPierce LIFT12Izaiah [employer] Work Phone: INFLUENZA A/B, COVID 2019 PC R,SYMPTOMATICon 06-03-2021 Date and time of symptom onset [id number] [employer] Work Phone: INFLUENZA A/B, COVID 2018 PCR,SYMPTOMATIC Not detected See Below [employer] Work Phone: Comment on above: Reference Range: Not Detected.This test has received FDA Emergency Use Authorization (EUA) and has been verified by [facility] ([facility]). This test is only authorized for the duration of time that circumstances exist to justify the authorization of the emergency use of in vitro diagnostic tests for the detection of SARS-CoV-2 virus and/or diagnosis of COVID-19 infection under section 564(b)(1) of the Act, 21 U.S.C. 360bbb-3(b)(1), unless the authorization is terminated or revoked sooner. [facility] is certified under CLIA-88 as qualified to perform high complexity testing. Testing is performed in the [facility] located at [address] [place] [address].SARS-CoV-2/Flu/RSV Multiplex Test: Fact sheet for providers: https://www.fda.gov/media/456719/downloadFact sheet for patients: https://www.fda.gov/media/244917/download Reference Range: Not Detected Respiratory virus testing [...] 06-03-2021 TSH Qn 1.64 m[IU]/L See Below [employer] Work Phone: Comment on above: Reference Range: 0.4 4 - 3.98 TSH testing is performed using different testing methodology at [facility] than at other [facility]. Direct result comparisons should only be made within the same method. Albumin BCP dye [Mass/Vol] 3.9 g/dL 3.4 - 5.0 MG-[employer] Work Phone: ALP [Catalytic activity/Vol] 80 U/L 33 - 136 MG-[employer] Work Phone: ALT With P-5'-P [Catalytic activity/Vol] 14 U/L 10 - 52 MG-[employer] Work Phone: Comment on above: Patients treated wit h Sulfasalazine may generate falsely decreased results for ALT. Anion gap [Moles/Vol] 11 mmol/L 10 - 20 MG- [employer] Work Phone: AST With P-5'-P [Catalytic activity/Vol] 13 U/L 9 - 39 MG-[employer] Work Phone: Bilirubin [Mass/Vol] 0.5 mg/dL 0.0 - 1.2 MG-M [employer] Work Phone: Calcium [Mass/Vol] 9.5 mg/dL 8.6 - 10.6 MG-Med icine [employer] Work Phone: Chloride [Moles/Vol] 106 mmol/L 98 - 107 MG-M gerber Benítez Work Phone: CO2 [Moles/Vol] 27 mmol/L 21 - 32 MG-Medici javier Benítez Work Phone: Creatinine [Mass/Vol] 1.09 mg/dL See Below MG- Medicine Sharon Benítez Work Phone: Comment on above: Reference Range: 0.5 0 - 1.30 Glucose [Mass/Vol] 104 mg/dL above high threshold 74 - 99 MG-Pierce Benítez Work Phone: Natriuretic peptide B (Bld) [Mass/Vol] 112 pg/mL above high threshold 0 - 99 MG-Pierce Benítez Work Phone: Comment on above: . <100 pg/mL - Heart failure [id number] pg/mL - Intermediate probability of acute heart. [...] [Moles/Vol] 3.9 mmol/L 3.5 - 5.3 MG- Pierce Benítez Work Phone: Protein [Mass/Vol] 7.0 g/dL 6.4 - 8.2 MG-Med colette Benítez Work Phone: Sodium [Moles/Vol] 140 mmol/L 136 - 145 MG-Med colette Benítez Work Phone: Urea nitrogen [Mass/Vol] 16 mg/dL 6 - 23 MG-Pierce Bentíez Work Phone: Magnesium, Serumon 2 Magnesium [Mass/Vol] 2.14 mg/dL See Below MG-M gerber Benítez Work Phone: Comment on above: Reference Range: 1.6 0 - 2.40 No Panel Informationon 06-03 [email or web address]?RetrieveTestByDateTim e?KiasjpjLT=[id number]&Da te=03-06-2021&Time=23%3a 12%3a15%3a00&TestType=EC G&Site=1&OutputType=PDF& Ext=PDF MG-Medicine -Izaiah Benítez Work Phone: [phone] Normal sinus rhythm MG-Me dicine -Izaiah Benítez Work Phone: [phone] Abnormal MG-Medicine -Izaiah Benítez Work Phone: [phone] MG-Medicine -Izaiah Benítez Work Phone: [phone] 1 MG-Medicine -Izaiah Benítez Work Phone: [phone] 1 MG-Medicine -Izaiah Benítez Work Phone: [phone] 1 MG-Medicine -Izaiah Benítez Work Phone: [phone] 1 MG-Medicine -Izaiah Benítez Work Phone: [phone] 1 MG-Medicine -Ziaiah Benítez Work Phone: [phone] 1 MG-Medicine -Izaiah Benítez Work Phone: [phone] 1 MG-Medicine -Izaiah Benítez Work Phone: [phone] 1 MG-Medicine -Izaiah Benítez Work Phone: [phone] 1 MG-Medicine -Izaiah Benítez Work Phone: [phone] 1 MG-Medicine -Izaiah Benítez Work Phone: [phone] 1 MG-Medicine -Izaiah Benítez Work Phone: [phone] MG-Medicine -Izaiah Benítez Work Phone: [phone] MG-Medicine -Izaiah Benítez Work Phone: [email or web address]?RetrieveTestByDateTim e?ZteegeaRM=[id number]&Da te=03-06-2021&Time=23%3a 11%3a44%3a00&TestType=EC G&Site=1&OutputType=PDF& Ext=PDF MG-Medicine -Izaiah Jeyson Work Phone: Normal sinus rhythm MG-Me dicine -Izaiah Jeyson Work Phone: Abnormal MG-Medicine -Izaiahmarisol Benítez Work Phone: [phone] MG-Medicine -Izaiah Jeyson Work Phone: [phone] MG-Medicine -Izaiah Jeyson Work Phone: [phone] 1 MG-Medicine -Izaiah Jeyson Work Phone: [phone] 1 MG-Medicine -Izaiah Jeyson Work Phone: [phone] 1 MG-Medicine -Izaiah Jeyson Work Phone: [phone] 1 MG-Medicine -Izaiah Jeyson Work Phone: [phone] 1 MG-Medicine -Izaiah Jeyson Work Phone: [phone] 1 MG-Medicine -Izaiah Jeyson Work Phone: [phone] 1 MG-Medicine -Izaiah Jeyson Work Phone: [phone] 1 MG-Medicine -Izaiah Jeyson Work Phone: [phone] 1 MG-Medicine -Izaiah Jeyson Work Phone: [phone] 1 MG-Medicine -Izaiah Jeyson Work Phone: [phone] 1 MG-Medicine -Izaiah Jeyson Work Phone: [phone] 1 MG-Medicine -Izaiah Jeyson Work Phone: [phone] [email or web address]?RetrieveTestByDateTim e?[email or web address]=[id number]&Da te=03-06-2021&Time=14%3a 15%3a16%3a00&TestType=EC G&Site=1&OutputType=PDF& Ext=PDF [facility] [facility] Work Phone: Please see ED Provid er Note for formal interpretation [facility] Work Phone: [phone] Normal MG-[facility] Work Phone: [phone] [facility] Work Phone: [phone] [facility] Work Phone: [phone] [facility] Work Phone: [phone] [facility] Work Phone: [phone] [facility] Work Phone: [phone] 1 [facility] Work Phone: [phone] 1 [facility] Work Phone: [phone] [facility] Work Phone: [phone] [facility] Work Phone: [phone] 1 [facility] Work Phone: [phone] 1 [facility] Work Phone: [phone] 1 [facility] Work Phone: [phone] [facility] Work Phone: 76 {mL/min/1.73m2} >90 MG-Med icine -Izaiah Benítez Work Phone: Comment on above: CALCULATIONS OF LILI MATED GFR ARE PERFORMED USING THE 2020 CKD-EPI STUDY REFIT EQUATION WITHOUT THE RACE VARIABLE FOR THE IDMS-TRACEABLE CREATININE METHODS.https://jasn.asnjournals.org/content// ASN.8964712944 Please click on the link to view the study images Normal MG-Medicine -Izaiah Benítez Work Phone: Radiologyon 06-03-2021 XR Chest Single view Normal [facility] Work Phone: Troponin I, Serumon 06-04-19 Troponin I.cardiac [Mass/Vol] 0.66 ng/mL above high threshold See Below [facility]MON[facility]ce Benítez Work Phone: Comment on above: Reference [...] at [facility] than at other [facility]. Direct result comparisons should only be [...] [Mass/Vol] 0.60 ng/mL Critically high See Below [facility] ManorIzaiah Benítez Work Phone: Comment on above: Reference [...] at [facility] than at other [facility]. Direct result comparisons should only be [...] Urinalysison 06-03-2021 Color (U) YELLOW See Below MG-Medicine -Izaiah Benítez Work Phone: Comment on above: Reference Range: STR AW,YELLOW Glucose Ql (U) Negative NEGATIVE MG-Medicin e -[facility]iahSharp [facility] Work Phone: Ketones Ql (U) Negative NEGATIVE MG-Medicin e -IzaiahSharp [facility] Work Phone: Leukocyte esterase Test strip Ql (U) Negative NEGATIVE MG-Medicine -IzaiahSharp [facility] Work Phone: pH (U) 5.0 [pH] 5.0 - 8.0 MG-Medicine -Izaiah Benítez Work Phone: Protein (U) [Mass/Vol] Negative NEGATIVE MG -Medicine -IzaiahSharp [facility] Work Phone: RBC (U) [#/Vol] SMALL (1+) Abnormal NEGATIVE MG-Medici ne -Izaiah Benítez Work Phone: Specific gravity (U) [Rel density] 1.013 1 See Below MG-Medicine -Izaiah Benítez Work Phone: Comment on above: Reference Range: 1.0 05 - 1.035 Urinalysis Negative NEGATIVE MG-Medicine -IzaiahSharp [facility] Work Phone: Urinalysis <2.0 0.0 - 1.9 MG-Medicine -Izaiah Benítez Work Phone: Urinalysis CLEAR CLEAR MG-Medicine -IzaiahSharp [facility] Work Phone: Urinalysis, Microscopicon Hyaline casts LM Ql (Urine sed) 3+ Abnormal MG-Medicine -Izaiah [place] Work Phone: Urinalysis, Microscopic 1+ Abnormal M G-Medicine -[facility] Work Phone: Urinalysis, Microscopic <1 M G-Medicine -IzaiahSharp [facility] Work Phone: Urinalysis, Microscopic 1 {/HPF} 0-5 M [facility] HealthIzaiah Benítez Work Phone: Complete Blood Count + Diffe brigitte 05-17-2021 Basophils/100 WBC (Bld) 0.4 % 0.0 - 2.0 M [facility] [facility] Work Phone: Erythrocyte distribution width (RBC) [Ratio] 12.7 % See Below MG-[facility]ul [facility] [facility] Work Phone: Comment on above: Reference Range: 11. 5 - 14.5 Hematocrit (Bld) [Volume fraction] 45.7 % See Below MG-[facility] Work Phone: Comment on above: Reference Range: 41. 0 - 52.0 Hemoglobin (Bld) [Mass/Vol] 15.3 g/dL See Below MG-[facility] Work Phone: Comment on above: Reference Range: 13. 5 - 17.5 Lymphocytes/100 WBC (Bld) 15.5 % See Below [facility] Work Phone: Comment on above: Reference Range: 13. 0 - 44.0 MCHC (RBC) [Mass/Vol] 33.5 g/dL See Below MG- Pul [facility] Work Phone: Comment on above: Reference Range: 32. 0 - 36.0 MCV (RBC) [Entitic vol] 97 fL 80 - 100 M [facility] [facility] Work Phone: Monocytes/100 WBC (Bld) 7.3 % 2.0 - 10.0 M [facility] [facility] Work Phone: Neutrophils/100 WBC [...] Differential 0.59 {x10E9/L} See Below MG-[facility] Work Phone: Comment on above: Reference Range: 0.1 0 - 1.00 Complete Blood Count + Differential 1.25 {x10E9/L} See Below MG-[facility] Work Phone: Comment on above: Reference Range: 1.2 0 - 4.80 Complete Blood Count + Differential 6.15 {x10E9/L} See Below [facility] Work Phone: Comment on above: Reference Range: 1.2 0 - 7.70 Complete Blood Count + Differential 0.6 % 0.0 - 6.0 [facility] Work Phone: Complete Blood Count + Differential 0.2 % 0.0 - 0.9 [facility] Work Phone: Comment on above: Immature Granulocyte Count (IG) includes promyelocytes, myelocytes and metamyelocytes but does not include bands. Percent differential counts (%) should be interpreted in the context of the absolute cell counts (cells/L). Ferritin, Serumon 05-17-2021 Ferritin [Mass/Vol] 209 ug/L 20 - 300 MG-Pu lm Sleep[facility] [address] Sleep Work Phone: Gamma Glutamyl Transferase, Serumon 05-17-2021 Gamma glutamyl transferase [Catalytic activity/Vol] 29 U/L 5 - 64 MG-Pulm [facility] [address] [facility] Work Phone: Immunoglobulin E Level, Seru [facility] 05-17-2021 IgE Qn 191 {IU/mL} 0 - 214 MG-Medicine -Izaiah Benítez Work Phone: Laboratory - Chemistry and C hemistry - challengeon 05-17-2021 Albumin BCP dye [Mass/Vol] 4.4 g/dL 3.4 - 5.0 MG-Pulm [facility] [address] [facility] Work Phone: ALP [Catalytic activity/Vol] 68 U/L 33 - 136 MG-Pulm [facility] [address] [facility] Work Phone: ALT With P-5'-P [Catalytic activity/Vol] 14 U/L 10 - 52 MG-Pulm [facility] [address] [facility] Work Phone: Comment on above: Patients treated wit h Sulfasalazine may generate falsely decreased results for ALT. Anion gap [Moles/Vol] 11 mmol/L 10 - 20 MG- Pulm [facility] [address] [facility] Work Phone: AST With P-5'-P [Catalytic activity/Vol] 13 U/L 9 - 39 MG-Pulm [facility] [address] [facility] Work Phone: Bilirubin [Mass/Vol] 0.6 mg/dL 0.0 - 1.2 MG-P ulm [facility] [address] [facility] Work Phone: Calcium [Mass/Vol] 9.6 mg/dL 8.6 - 10.3 MG-Pul m [facility] [address] [facility] Work Phone: [phone] Chloride [Moles/Vol] 103 mmol/L 98 - 107 MG-P ulm [facility] [address] [facility] Work Phone: [phone] CO2 [Moles/Vol] 29 mmol/L 21 - 32 MG-Pulm [facility] [address] [facility] Work Phone: [phone] Creatinine [Mass/Vol] 1.07 mg/dL See Below MG- Pulm [facility] [address] [facility] Work Phone: [phone] Comment on above: Reference Range: 0.5 0 - 1.30 Glucose [Mass/Vol] 98 mg/dL 74 - 99 MG-Pul m [facility] [address] [facility] Work Phone: [phone] IgA [Mass/Vol] 133 mg/dL 70 - 400 MG-Medicin e -IzaiahCrowd Technologies Work Phone: [phone] Comment on above: MONOCLONAL PROTEINS MAY CAUSE FALSELY LOWRESULTS IN THIS ASSAY. SERUM PROTEINELECTROPHORESIS SHOULD BE DONE THEFIRST TEST TO EVALUATE MONOCLONAL GAMMOPATHY. IgG [Mass/Vol] 1060 mg/dL 700 - 1600 MG-Medicin e -[employer] Work Phone: [phone] Comment on above: MONOCLONAL PROTEINS MAY CAUSE FALSELY LOWRESULTS IN THIS ASSAY. SERUM PROTEINELECTROPHORESIS SHOULD BE DONE THEFIRST TEST TO EVALUATE MONOCLONAL GAMMOPATHY. IgM [Mass/Vol] 75 mg/dL 40 - 230 MG-Medicin e -Izaiah Benítez Work Phone: Comment on above: MONOCLONAL PROTEINS MAY CAUSE FALSELY LOWRESULTS IN THIS ASSAY. SERUM PROTEINELECTROPHORESIS SHOULD BE DONE THEFIRST TEST TO EVALUATE MONOCLONAL GAMMOPATHY. Iron [Mass/Vol] 67 ug/dL 35 - 150 MG-Pulm [facility] [address] [facility] Work Phone: Iron binding capacity [Mass/Vol] 335 ug/dL 240 - 445 MG-Pulm [place] [address] Sleep Work Phone: [phone] Potassium [Moles/Vol] 3.9 mmol/L 3.5 - 5.3 [...] Sleep Work Phone: SEE COMMENT [facility] [facility] Work Phone: Comment on above: NO SIGNIFICANT RBC A BNORMALITIES SEEN ONSMEAR REVIEW. 78 {mL/min/1.73m2} >90 MG-Pul m [facility] [address] Sleep Work Phone: Comment on above: CALCULATIONS OF LILI MATED GFR ARE PERFORMED USING THE 2020 CKD-EPI STUDY REFIT EQUATION WITHOUT THE RACE VARIABLE FOR THE IDMS-TRACEABLE CREATININE METHODS.https://jasn.asnjournals.org/content// ASN.5161780046 Reticulocyte Counton 022 Reticulocyte Count 35 pg 28 - 38 [facility] [facility] Work Phone: Reticulocyte Count 12.6 % 0.0 - 16.0 [facility] Work Phone: Reticulocyte Count 0.065 {x10E12/L} See Below MG-[facility] [facility] Work Phone: Comment on above: Reference Range: 0.0 22 - 0.118 Reticulocyte Count 1.4 % 0.5 - 2.0 [facility] [facility] Work Phone: Sedimentation Rate, Erythroc yteon 05-17-2021 ESR (Bld) [Velocity] 16 mm/h 0 - 20 MG-P ulm [facility] [facility] Work Phone: Tobacco Screening.on 022 Fall risk assessment a) No falls within the last year MG-Otolaryn Ze[employer]y-[place] tr[employer]ell Work Phone: Tobacco use status CPHS a) Yes M G-Otolaryn ZeomatrixyPetrotechnicsChina Spring trammell Work Phone: Tobacco Screening. Yes MG-Mejia laryn [employer]introNetworksChina Spring trammell Work Phone: CT Chest Low Dose for Lung S creening w/o Contraston 04-21-2021 CT Chest for screening Normal MG -Pulm [employer] [facility] Work Phone: Complete Blood Count + Diffe rentialon 04-14-2021 Basophils/100 WBC (Bld) 0.1 % 0.0 - 2.0 M G-Otolaryn arleney-[employer] Work Phone: Erythrocyte distribution width (RBC) [Ratio] 13.7 % See Below MG-Otolaryn arleney-[place] wasserman [employer] Work Phone: Comment on above: Reference Range: 11. 5 - 14.5 Hematocrit (Bld) [Volume fraction] 47.6 % See Below MG-Otolaryn arleneogy-[employer] [employer] Work Phone: Comment on above: Reference Range: 41. 0 - 52.0 Hemoglobin (Bld) [Mass/Vol] 15.5 g/dL See Below MG-Otolaryn arleneogy-[place] [employer] Work Phone: Comment on above: Reference Range: 13. 5 - 17.5 Lymphocytes/100 WBC (Bld) 7.3 % See Below MG-Otolaryn gology-[place] [employer] Work Phone: Comment on above: Reference Range: 13. 0 - 44.0 MCHC (RBC) [Mass/Vol] 32.6 g/dL See Below MG- Otolaryn arleneogy-[place] [employer] Work Phone: [phone] Comment on above: Reference Range: 32. 0 - 36.0 MCV (RBC) [Entitic vol] 101 fL above hi gh threshold 80 - 100 MG-Otolaryn arleneogy-[employer] [employer] Work Phone: [phone] Monocytes/100 WBC (Bld) 4.3 % 2.0 - 10.0 M G-Otolaryn arleneogy-[place] [employer] Work Phone: [phone] Neutrophils/100 WBC (Bld) 88.2 % See Below MG-Otolaryn arleneogy-[employer] [employer] Work Phone: [phone] Comment on above: Reference Range: 40. 0 - 80.0 Platelets (Bld) [#/Vol] 149 10*3/uL below lo w threshold 150 - 450 MG-Otolaryn arleneogy-[place] [employer] Work Phone: [phone] RBC (Bld) [#/Vol] 4.73 {x10E12/L} See Below MG -Otolaryn arleneogy-[employer] Work Phone: [phone] Comment on above: Reference Range: 4.5 0 - 5.90 WBC (Bld) [#/Vol] 10.3 10*3/uL 4.4 - 11.3 MG-Ot myra kaye-[place] [employer] Work Phone: [phone] Complete Blood Count + Differential 9.11 {x10E9/L} above high threshold See Below MG-Otolaryn gology-[place] [employer] Work Phone: [phone] Comment on above: Reference Range: 1.2 0 - 7.70 Percent differential counts (%) should be interpreted in the context of the absolute cell counts (cells/L). Complete Blood Count + Differential 0.1 % 0.0 - 6.0 MG-Otolaryn arleneogy-[place] [employer] Work Phone: [phone] Complete Blood Count + Differential 0.01 {x10E9/L} See Below MG-Otolaryn arleneogy-[place] [employer] Work Phone: Comment on above: Reference Range: 0.0 0 - 0.10 Reference Range: 0.0 0 - 0.70 Complete Blood Count + Differential 0.44 {x10E9/L} See Below -Sruthi wasserman [employer] Work Phone: Comment on above: Reference Range: 0.1 0 - 1.00 Complete Blood Count + Differential 0.75 {x10E9/L} below low threshold See Below Fariba [employer]erman [employer] Work Phone: Comment on above: Reference Range: 1.2 0 - 4.80 Ferritin, Serumon 04-14-2021 Ferritin [Mass/Vol] 307 ug/L above high threshold 20 - 300 Fariba [employer] Work Phone: Tobacco Screening.on Fall risk assessment a) No falls within the last year MG-Pediatri cs-[place] [facility] DO Work Phone: Tobacco use status CPHS a) Yes M G-Pediatri cs-[place] 204 DO Work Phone: Tobacco Screening. Yes MG-Ped iatri cs-[place] 204 DO Work Phone: Tobacco Screening.on Fall risk assessment a) No falls within the last year [facility] Work Phone: Tobacco use status CPHS a) Yes M G-[facility] Work Phone: Complete Blood Count + Diffe rentialon 03-17-2021 Basophils/100 WBC (Bld) 0.1 % 0.0 - 2.0 M Vic [employer]erman [employer] Work Phone: Erythrocyte distribution width (RBC) [Ratio] 14.2 % See Below Fariba was[employer]erman [employer] Work Phone: Comment on above: Reference Range: 11. 5 - 14.5 Hematocrit (Bld) [Volume fraction] 45.7 % See Below [facility]Otolarbayron wasserman Voice Work Phone: [phone] Comment on above: Reference Range: 41. 0 - 52.0 Hemoglobin (Bld) [Mass/Vol] 14.9 g/dL See Below [facility] GUYMONOtchatsworthbayron wasserman Voice Work Phone: [phone] Comment on above: Reference Range: 13. 5 - 17.5 Lymphocytes/100 WBC (Bld) 7.0 % See Below [facility] GUYMONOtolarbayron jacobsNessa wasserman Voice Work Phone: [phone] Comment on above: Reference Range: 13. 0 - 44.0 MCHC (RBC) [Mass/Vol] 32.6 g/dL See Below [facility] Otchatsworthbayron wasserman Voice Work Phone: [phone] Comment on above: Reference Range: 32. 0 - 36.0 MCV (RBC) [Entitic vol] 99 fL 80 - 100 M Otchatsworthbayrno wasserman Voice Work Phone: [phone] Monocytes/100 WBC (Bld) 3.0 % 2.0 - 10.0 M GNikchatsworthbayron wasserman Voice Work Phone: [phone] Neutrophils/100 WBC (Bld) 89.8 % See Below [facility] wasserman Voice Work Phone: [phone] Comment on above: Reference Range: 40. 0 - 80.0 Platelets (Bld) [#/Vol] 150 10*3/uL 150 - 450 MG-Otolarbayron wasserman Voice Work Phone: [phone] RBC (Bld) [#/Vol] 4.61 {x10E12/L} See Below MG -Otolarbayron wasserman Voice Work Phone: [phone] Comment on above: Reference Range: 4.5 0 - 5.90 WBC (Bld) [#/Vol] 10.1 10*3/uL 4.4 - 11.3 MG-Ot myra jacobsOlipmiaid man Voice Work Phone: [phone] Complete Blood Count + Differential 0.01 {x10E9/L} See Below Fariba wasserman Voice Work Phone: [phone] Comment on above: Reference Range: 0.0 0 - 0.10 Reference Range: 0.0 0 - 0.70 Complete Blood Count + Differential 0.30 {x10E9/L} See Below Fariba wasserman [employer] Work Phone: Comment on above: Reference Range: 0.1 0 - 1.00 Complete Blood Count + Differential 0.71 {x10E9/L} below low threshold See Below Fariba wasserman [employer] Work Phone: Comment on above: Reference Range: 1.2 0 - 4.80 Complete Blood Count + Differential 9.11 {x10E9/L} above high threshold See Below Fariba wasserman Voice Work Phone: Comment on above: Reference Range: 1.2 0 - 7.70 Percent differential counts (%) should be interpreted in the context of the absolute cell counts (cells/L). Complete Blood Count + Differential 0.1 % 0.0 - 6.0 Fariba wasserman Voice Work Phone: Ferritin, Serumon 03-17-2021 Ferritin [Mass/Vol] 303 ug/L above high threshold 20 - 300 Fariba wasserman Voice Work Phone: Respirationon 03-07-2021 Fall risk assessment a) No falls within the last year [facility] Work Phone: [phone] Tobacco use status CPHS a) Yes [facility] Phone: [phone] Respiration Normal [facility] Work Phone: [phone] Respiration Adult [facility] Work Phone: [phone] Respiration Yes [facility] Work Phone: [phone] No Panel Informationon 03-01 184CC [facility] [place] Work Phone: Tobacco Screening.on Fall risk assessment a) No falls within the last year [facility] [place] Work Phone: [phone] Tobacco use status CPHS a) Yes M [facility] [place] Work Phone: [phone] Tobacco Screening. Yes [facility] [place] Work Phone: C1Q Complementon 02-27-2021 Complement C1q [Mass/Vol] 15.8 mg/dL 10.2-20.3 [facility] 204 DO Work Phone: Tobacco Screening.on Fall risk assessment a) No falls within the last year [facility] 204 DO Work Phone: Tobacco use status CPHS a) Yes M [facility] 204 DO Work Phone: Tobacco Screening. Yes [facility]Ped iatri [facility]-[place] 204 DO Work Phone: Carbon Monoxide, Whole Blood on 02-15-2021 Carboxyhemoglobin (Bld) [Mass fraction] 8.0 % above high threshold 0.0-3.6 [facility] 1500 Work Phone: Comment on above: Environmental Exposu re: Nonsmokers <3.7 Smokers <9.9 Occupational Exposure: MICK 3.5 Detection Limit = 0.2 Complete Blood Count + Diffe rentialon 02-15-2021 Basophils/100 WBC (Bld) 0.3 % 0.0 - 2.0 M [facility] 1500 Work Phone: Erythrocyte distribution width (RBC) [Ratio] 13.7 % See Below [facility]ica[facility] [employer] Work Phone: Comment on above: Reference Range: 11. 5 - 14.5 Hematocrit (Bld) [Volume fraction] 49.4 % See Below [facility]Silicaide [employer] Work Phone: Comment on above: Reference Range: 41. 0 - 52.0 Hemoglobin (Bld) [Mass/Vol] 16.5 g/dL See Below [facility] 1500 Work Phone: Comment on above: Reference Range: 13. 5 - 17.5 Lymphocytes/100 WBC (Bld) 9.5 % See Below [facility] 1500 Work Phone: Comment on above: Reference Range: 13. 0 - 44.0 MCHC (RBC) [Mass/Vol] 33.4 g/dL See Below [facility] Trellie [facility] 1500 Work Phone: [phone] Comment on above: Reference Range: 32. 0 - 36.0 MCV (RBC) [Entitic vol] 97 fL 80 - 100 M Trellie [facility] 1500 Work Phone: [phone] Monocytes/100 WBC (Bld) 2.9 % 2.0 - 10.0 M Trellie [facility] 1499 Work Phone: [phone] Neutrophils/100 WBC (Bld) 86.3 % See Below [facility] 1500 Work Phone: Comment on above: Reference Range: 40. 0 - 80.0 Platelets (Bld) [#/Vol] 158 10*3/uL 150 - 450 [facility] 1500 Work Phone: [phone] RBC (Bld) [#/Vol] 5.08 {x10E12/L} See Below [facility] Work Phone: [phone] Comment on above: Reference Range: 4.5 0 - 5.90 WBC (Bld) [#/Vol] 11.7 10*3/uL above high threshold 4.4 - 11.3 [facility] 1500 Work Phone: Complete Blood Count + Differential 0.03 {x10E9/L} See Below [facility] 1500 Work Phone: Comment on above: Reference Range: 0.0 0 - 0.10 Complete Blood Count + Differential 0.01 {x10E9/L} See Below MGFylet -[place] 1500 Work Phone: Comment on above: Reference Range: 0.0 0 - 0.70 Complete Blood Count + Differential 0.34 {x10E9/L} See Below [place] [address] Work Phone: Comment on above: Reference Range: 0.1 0 - 1.00 Complete Blood Count + Differential 1.11 {x10E9/L} below low threshold See Below [facility] [place] [place] [address] Work Phone: Comment on above: Reference Range: 1.2 0 - 4.80 Complete Blood Count + Differential 10.08 {x10E9/L} above high threshold See Below [place] [address] Work Phone: Comment on above: Reference Range: 1.2 0 - 7.70 Complete Blood Count + Differential 0.1 % 0.0 - 6.0 [place] [address] Work Phone: Complete Blood Count + Differential 0.9 % 0.0 - 0.9 [place] [address] Work Phone: Comment on above: Immature Granulocyte Count (IG) includes promyelocytes, myelocytes and metamyelocytes but does not include bands. Percent differential counts (%) should be interpreted in the context of the absolute cell counts (cells/L). Erythropoietin Assayon 02-15 Erythropoietin (EPO) Qn 7.6 {mIU/mL} 2.6-18.5 [place] [address] Work Phone: Comment on above: TruQu el DxI 800 Immunoassay SystemValues obtained with different assay methods or kits cannot be usedinterchangeably. Results cannot be interpreted as absolute evidenceof the presence or absence of malignant disease. Gamma Glutamyl Transferase, Serumon 02-15-2021 Gamma glutamyl transferase [Catalytic activity/Vol] 53 U/L 5 - 64 [place] [address] Work Phone: Immunoglobulin E Level, Seru mon 02-15-2021 IgE Qn 211 {IU/mL} 0 - 214 [place] [address] Work Phone: Laboratory - Chemistry and C hemistry - challengeon 02-15-2021 Albumin BCP dye [Mass/Vol] 4.5 g/dL 3.4 - 5.0 [facility] 1500 Work Phone: [phone] ALP [Catalytic activity/Vol] 66 U/L 33 - 136 [facility] 1500 Work Phone: [phone] ALT With P-5'-P [Catalytic activity/Vol] 21 U/L 10 - 52 [facility] 1500 Work Phone: [phone] Comment on above: Patients treated wit h Sulfasalazine may generate falsely decreased results for ALT. Anion gap [Moles/Vol] 11 mmol/L 10 - 20 [facility] 1500 Work Phone: [phone] AST With P-5'-P [Catalytic activity/Vol] 12 U/L 9 - 39 [facility] 1500 Work Phone: [phone] Bilirubin [Mass/Vol] 0.8 mg/dL 0.0 - 1.2 [facility] en[facility] -[place] 1500 Work Phone: [phone] Calcium [Mass/Vol] 10.0 mg/dL 8.6 - 10.3 [facility] et[facility] -[place] 1500 Work Phone: [phone] Chloride [Moles/Vol] 100 mmol/L 98 - 107 MG-G enetics -[place] 1500 Work Phone: [phone] CO2 [Moles/Vol] 31 mmol/L 21 - 32 [facility] cs -[place] 1500 Work Phone: [phone] Creatinine [Mass/Vol] 1.02 mg/dL See Below [facility] 1500 Work Phone: [phone] Comment on above: Reference Range: 0.5 0 - 1.30 Glucose [Mass/Vol] 112 mg/dL above high threshold 74 - 99 [facility] 1500 Work Phone: [phone] Iron [Mass/Vol] 119 ug/dL 35 - 150 [facility] cs -[place] 1500 Work Phone: Iron binding capacity [Mass/Vol] 388 ug/dL 240 - 445 -[facility] 1500 Work Phone: [phone] LDH [Catalytic activity/Vol] 156 U/L 84 - 246 [facility] 1500 Work Phone: [phone] Potassium [Moles/Vol] 4.4 mmol/L 3.5 - 5.3 [facility] 1500 Work Phone: [phone] Protein [Mass/Vol] 7.4 g/dL 6.4 - 8.[address] [facility] 1500 Work Phone: [phone] Sodium [Moles/Vol] 138 mmol/L 136 - [address] -[address] [facility] 1500 Work Phone: [phone] Urea nitrogen [Mass/Vol] 14 mg/dL 6 - 23 [place] [address] Work Phone: [phone] No Panel Informationon 02-15 Not detected See Below [place] [address] Work Phone: Comment on above: Reference Range: [...] not met (Almanza C, et al. Haematologica. 2014;99(9):6023-2228. Yamilet E, et al. Haematologica. 2014;99(7):d063-y451.). Detection of the JAK2 [id number] mutation at [...] extraction and testing is performed in the [facility] ([facility]) located at [address] [place], [place] [address]e [address] [place] [address] (CLIA License #[id number], CAP #[id number]).DISCLAIMER: This test was developed and its analytical performance characteristics have been determined by [facility] ([facility]) part of the Department of Pathology at [facility]. This test has not been cleared or approved by the FDA; however, the FDA has determined that such approval is not necessary. The [facility] is CAP accredited and certified under the Clinical Laboratory Improvement Amendments of 1988 (CLIA-88) as qualified to perform high complexity testing. Reference Range: NOT DETECTEDMRN: [id number] PatientName: JULIA FRAZIER NOT DETECTED METHODOLOGY:RNA isolated from peripheral blood or bone marrow was reverse transcribedto cDNA. M-bcr (b2a2 and b3a2 aka p210 Major) or m-bcr (e1a2 aka [id number]) fusion transcripts are assessed by quantitative real-time [...] and corresponding conversion factor. Testing was performedat [facility] ([facility]) located at [address] [place] [address] Ave [address] [place] [address] (CLIA License [id number], CAP [id number]). DISCLAIMER:This test was developed at [facility] ([id number], CAP [id number]). Testing was performed at [facility] ([facility]) located at [address] [place] [address] (CLIA License [id number], CAP [id number]). It has notbeen cleared or approved by the FDA. The FDA has determined that suchclearance or approval is not necessary. This test is used for clinicalpurposes. It should not be regarded as investigational or for research.This laboratory is certified under the Clinical Laboratory ImprovementAmendments of 1988 (CLIA-88) as qualified to perform high complexityclinical laboratory testing. SEE COMMENT [facility] 1500 Work Phone: Comment on above: Normal 2.9 % [facility] 1500 Work Phone: Comment on above: HGB A2 values may be falsely elevated in the presence of HGB S. 0.5 % [facility] -[place] 1500 Work Phone: 96.6 % [facility] 1500 Work Phone: 31 % 25 - 45 [facility] 1500 Work Phone: >60 >60 [facility] 1500 Work Phone: Comment on above: CALCULATIONS OF LILI MATED GFR ARE PERFORMED USING THE MDRD STUDY EQUATION FOR THE IDMS-TRACEABLE CREATININE METHODS. CLIN CHEM 2007;53:766-72 Path Review-HGB Identificati onon 02-15-2021 Path Review-HGB Identification MELVIN [facility] 1500 Work Phone: Comment on above: By her/his signature above, the Pathologist listed as making the final interpretation certifies that she/he has personally reviewed this case. Reticulocyte Counton 021 Reticulocyte Count 38 pg 28 - 38 [facility] et[facility] -[place] 1500 Work Phone: Reticulocyte Count 9.5 % 0.0 - 16.0 [facility] -[place] 1500 Work Phone: Reticulocyte Count 0.079 {x10E12/L} See Below [facility] 1500 Work Phone: Comment on above: Reference Range: 0.0 22 - 0.118 Reticulocyte Count 1.6 % 0.5 - 2.0 [facility] -[place] 1500 Work Phone: Sedimentation Rate, Erythroc yteon 02-15-2021 ESR (Bld) [Velocity] 14 mm/h 0 - 20 MG-G enetics -[place] 1500 Work Phone: Uric Acid, Serumon Urate [Mass/Vol] 5.6 mg/dL 4.0 - 7.5 MG-Ronda ics -[place] 1500 Work Phone: Comment on above: Venipuncture immedia tely after or during the administration of Metamizole may lead to falsely low results. Testing should be performed immediately prior to Metamizole dosing. IO UA (automated w/o microsc opy)on 01-25-2021 Protein (U) [Mass/Vol] Negative -[place] [address] DO Work Phone: IO UA (automated w/o microscopy) Negative -[place] [address] DO Work Phone: IO UA (automated w/o microscopy) Normal (0.2-1.0 mg/dl) MP-U[facility] y- [place] [address] DO Work Phone: IO UA (automated w/o microscopy) 6.0 1 MP-[place]rology[place] [address] DO Work Phone: IO UA (automated w/o microscopy) Trace MP-[place]rology[place] [address] DO Work Phone: IO UA (automated w/o microscopy) 1.025 1 [facility]-[place]rology[place] [address] DO Work Phone: IO UA (automated w/o microscopy) Clear [facility] 232 DO Work Phone: [phone] IO UA (automated w/o microscopy) Yellow [place] [address] DO Work Phone: [phone] IO Ultrasound, measurement p ost-void resid urine and/or bl cap; no imagon 01-25-2021 IO Ultrasound, measurement post-void resid urine and/or bl cap; no imag 324 ml/min [place] [address] DO Work Phone: [phone] Tobacco Screening.on 021 Fall risk assessment a) No falls within the last year [place] [address] DO Work Phone: [phone] Tobacco use status CPHS a) Yes M [place] [address] DO Work Phone: [phone] Tobacco Screening. Yes [place] [address] DO Work Phone: [phone] C-1 Esterase Inhibitor Total , Serumon 01-18-2021 Complement C1 esterase inhibitor [Mass/Vol] 37 mg/dL 21-39 [place] [address] DO Work Phone: [phone] C1 Esterase Inhibitor, Funct ionalon 01-18-2021 Complement C1 esterase inhibitor.functional/Co mplement C1 esterase inhibitor.total [Mass fraction] >91 [place] [address] DO Work Phone: [phone] Comment on above: Abnormal <41 Equivoc al 41 - 67 Normal >67 C4 Complement, Serumon 01-18 Complement C4 [Mass/Vol] 35 mg/dL 10 - 50 [place] [address] DO Work Phone: [phone] Laboratory - Chemistry and C hemistry - challengeon 01-18-2021 Albumin BCP dye [Mass/Vol] 4.6 g/dL 3.4 - 5.0 [place] [address] DO Work Phone: [phone] ALP [Catalytic activity/Vol] 91 U/L 33 - 136 [place] [address] DO Work Phone: [phone] ALT With P-5'-P [Catalytic activity/Vol] 24 U/L 10 - 52 [place] [address] DO Work Phone: Comment on above: Patients treated wit h Sulfasalazine may generate falsely decreased results for ALT. Anion gap [Moles/Vol] 17 mmol/L 10 - 20 [place] [address] DO Work Phone: AST With P-5'-P [Catalytic activity/Vol] 13 U/L 9 - 39 [place] [address] DO Work Phone: Bilirubin [Mass/Vol] 1.2 mg/dL 0.0 - 1.2 -U [place] [address] DO Work Phone: Calcium [Mass/Vol] 10.0 mg/dL 8.6 - 10.6 -[place] [address] DO Work Phone: Chloride [Moles/Vol] 98 mmol/L 98 - 107 -U [place] [address] DO Work Phone: CO2 [Moles/Vol] 28 mmol/L 21 - 32 -[place] [address] DO Work Phone: Creatinine [Mass/Vol] 1.11 mg/dL See Below [place] [address] DO Work Phone: Comment on above: Reference Range: 0.5 0 - 1.30 Glucose [Mass/Vol] 92 mg/dL 74 - 99 -[place] [address] DO Work Phone: IgA [Mass/Vol] 165 mg/dL 70 - 400 [place] [address] DO Work Phone: Comment on above: MONOCLONAL PROTEINS MAY CAUSE FALSELY LOWRESULTS IN THIS ASSAY. SERUM PROTEINELECTROPHORESIS SHOULD BE DONE THEFIRST TEST TO EVALUATE MONOCLONAL GAMMOPATHY. IgG [Mass/Vol] 1230 mg/dL 700 - 1600 [place] [address] DO Work Phone: Comment on above: MONOCLONAL PROTEINS MAY CAUSE FALSELY LOWRESULTS IN THIS ASSAY. SERUM PROTEINELECTROPHORESIS SHOULD BE DONE THEFIRST TEST TO EVALUATE MONOCLONAL GAMMOPATHY. IgM [Mass/Vol] 95 mg/dL 40 - 230 -[place] [address] DO Work Phone: Comment on above: MONOCLONAL PROTEINS MAY CAUSE FALSELY LOWRESULTS IN THIS ASSAY. SERUM PROTEINELECTROPHORESIS SHOULD BE DONE THEFIRST TEST TO EVALUATE MONOCLONAL GAMMOPATHY. Potassium [Moles/Vol] 4.3 mmol/L 3.5 - 5.3 - [place] [address] DO Work Phone: [phone] Sodium [Moles/Vol] 139 mmol/L 136 - 145 [facility] DO Work Phone: [phone] Urea nitrogen [Mass/Vol] 15 mg/dL 6 - 23 -[facility]- [place] [address] DO Work Phone: [phone] Laboratory - Hematology and Cell countson 01-18-2021 Granulocytes/100 WBC (Bld) 82 % [place] [address] DO Work Phone: Lymphocytes/100 WBC (Bld) 11 % -[place] [address] DO Work Phone: Monocytes/100 WBC (Bld) 4 % M -[place] [address] DO Work Phone: No Panel Informationon 01-18 RAMYA [place] [address] DO Work Phone: Comment on above: By her/his signature above, the Pathologist listed as making the final interpretation certifies that she/he has personally reviewed this case. ACUTE PANEL -[place] [address] DO Work Phone: WHOLE BLD-EDTA -[place] [address] DO Work Phone: [phone] SEE BELOW [facility] 232 DO Work Phone: Comment on above: This test is a multi color, whole blood lysis assay. It was developed and its performance characteristics determined by the Department of Pathology, [facility], and has not been cleared or approved [...] CD13, CD5, CD2, CD177, CD163, CD11b, CD16, [place], Lambda, CD9, CD22. No increased or abno rmal myeloblast population detected.No immunophenotypic abnormalities of monocytes or granulocytes.No immunophenotypic evidence of a lymphoproliferative disorder. 18 {%_of_Lymph} MP-Urolog y- [facility] 232 DO Work Phone: Comment on above: PolyclonalKappa/Varela da= 58:42 13 {%_of_Lymph} MP-Urolog y- [facility] 232 DO Work Phone: [phone] 53 {%_of_Lymph} MP-Urolog y- [facility] 232 DO Work Phone: [phone] 100,000 [facility]- [facility] 232 DO Work Phone: [phone] 12.85 {x10E9/L} MP-Urolog y- [facility] 232 DO Work Phone: [phone] Acceptable [facility]- [facility] 232 DO Work Phone: [phone] Comment on above: Flow cytometry resul ts should be interpreted in the context of morphology. Flow cytometry findings may be unreliable due to sampling issues, differential loss or recovery of cell populations ex vivo, or low viability. Peripheral Blood MP-Urolo gy- [facility] 232 DO Work Phone: [phone] See Below [facility]- [facility] 232 DO Work Phone: [phone] Comment on above: Reference Range: 0.2 6 [...] the testing laboratory. 1.50 mg/dL See Below [facility] 232 DO Work Phone: [phone] Comment on above: Reference Range: 0.5 7 - 2.63 1.91 mg/dL See Below [facility] 232 DO Work Phone: [phone] Comment on above: Reference Range: 0.3 3 - 1.94 >60 >60 [facility] 232 DO Work Phone: [phone] Comment on above: CALCULATIONS OF LILI MATED GFR ARE PERFORMED USING THE MDRD STUDY EQUATION FOR THE IDMS-TRACEABLE CREATININE METHODS. CLIN CHEM 2007;53:766-72 PROTEIN ELECTROPHORESIS,SERU 01-18-2021 Albumin [Mass/Vol] 4.4 g/dL 3.4 - 5.0 MP-Uro logy- [facility] 232 DO Work Phone: Protein [Mass/Vol] 7.5 g/dL 6.4 - 8.2 MP-Uro logy- [place] 232 DO Work Phone: PROTEIN ELECTROPHORESIS,SERUM NORMAL [facility] - [facility] 232 DO Work Phone: PROTEIN ELECTROPHORESIS,SERUM 1.1 g/dL 0.5 - 1.4 [facility] - [place] 232 DO Work Phone: PROTEIN ELECTROPHORESIS,SERUM 0.8 g/dL 0.5 - 1.2 [facility] - [place] 232 DO Work Phone: PROTEIN ELECTROPHORESIS,SERUM 0.9 g/dL 0.4 - 1.1 [facility] 232 DO Work Phone: PROTEIN ELECTROPHORESIS,SERUM 0.3 g/dL 0.2 - 0.6 [facility] [place] 232 DO Work Phone: Path Review Blake 01-18-2021 Path Review JOSE SHEETS [place] [address] DO Work Phone: Comment on above: By her/his signature above, the Pathologist listed as making the final interpretation certifies that she/he has personally reviewed this case. C Reactive Protein, Serumon 12-28-2020 CRP [Mass/Vol] 0.12 mg/dL [place] [address] DO Work Phone: Comment on above: REF VALUE< 1.00 C-1 Esterase Inhibitor Total , Serumon 12-28-2020 Complement C1 esterase inhibitor [Mass/Vol] 31 mg/dL 21-39 [place] [address] DO Work Phone: C1 Esterase Inhibitor, Funct ionalon 12-28-2020 Complement C1 esterase inhibitor.functional/Co mplement C1 esterase inhibitor.total [Mass fraction] 84 {%mean_normal} [place] [address] DO Work Phone: Comment on above: Abnormal <41 Equivoc al 41 - 67 Normal >67 C4 Complement, Serumon 12-28 Complement C4 [Mass/Vol] 25 mg/dL 10 - 50 [place] [address] DO Work Phone: Complete Blood Count + Diffe rentialon 12-28-2020 Basophils/100 WBC (Bld) 0.1 % 0.0 - 2.0 M [place] [address] DO Work Phone: Erythrocyte distribution width (RBC) [Ratio] 13.7 % See Below [place] [address] DO Work Phone: Comment on above: Reference Range: 11. 5 - 14.5 Hematocrit (Bld) [Volume fraction] 48.7 % See Below [place] [address] DO Work Phone: Comment on above: Reference Range: 41. 0 - 52.0 Hemoglobin (Bld) [Mass/Vol] 16.3 g/dL See Below [place] [address] DO Work Phone: Comment on above: Reference Range: 13. 5 - 17.5 Lymphocytes/100 WBC (Bld) 12.8 % See Below [place] [address] DO Work Phone: Comment on above: Reference Range: 13. 0 - 44.0 MCHC (RBC) [Mass/Vol] 33.5 g/dL See Below [place] [address] DO Work Phone: Comment on above: Reference Range: 32. 0 - 36.0 MCV (RBC) [Entitic vol] 99 fL 80 - 100 M [place] [address] DO Work Phone: Monocytes/100 WBC (Bld) 3.1 % 2.0 - 10.0 M [place] [address] DO Work Phone: Neutrophils/100 WBC (Bld) 83.2 % See Below [place] [address] DO Work Phone: [phone] Comment on above: Reference Range: 40. 0 - 80.0 Platelets (Bld) [#/Vol] 151 10*3/uL 150 - 450 [place] [address] DO Work Phone: RBC (Bld) [#/Vol] 4.94 {x10E12/L} See Below [place] [address] DO Work Phone: [phone] Comment on above: Reference Range: 4.5 0 - 5.90 WBC (Bld) [#/Vol] 7.4 10*3/uL 4.4 - 11.3 [place] [address] DO Work Phone: Complete Blood Count + Differential 0.7 % 0.0 - 0.9 [place] [address] DO Work Phone: Comment on above: Immature Granulocyte Count (IG) includes promyelocytes, myelocytes and metamyelocytes but does not include bands. Percent differential counts (%) should be interpreted in the context of the absolute cell counts (cells/L). Complete Blood Count + Differential 0.01 {x10E9/L} See Below [facility] [address] DO Work Phone: Comment on above: Reference Range: 0.0 0 - 0.10 Reference Range: 0.0 0 - 0.70 Complete Blood Count + Differential 0.23 {x10E9/L} See Below [facility] 232 DO Work Phone: Comment on above: Reference Range: 0.1 0 - 1.00 Complete Blood Count + Differential 0.95 {x10E9/L} below low threshold See Below [facility]rology[facility] [place] [address] DO Work Phone: [phone] Comment on above: Reference Range: 1.2 0 - 4.80 Complete Blood Count + Differential 6.17 {x10E9/L} See Below [facility]ENTER[facility]rologyJames [facility] [address] DO Work Phone: Comment on above: Reference Range: 1.2 0 - 7.70 Complete Blood Count + Differential 0.1 % 0.0 - 6.0 [facility] [place] [address] DO Work Phone: [phone] Ferritin, Serumon 12-28-2020 Ferritin [Mass/Vol] 360 ug/L above high threshold 20 - 300 [facility] [place] [address] DO Work Phone: [phone] Fibrinogen Assayon 1 Fibrinogen Assay 330 mg/dL 200 - 400 [place] [address] DO Work Phone: [phone] Immunoglobulin E Level, Seru mon 12-28-2020 IgE Qn 388 {IU/mL} above high threshold 0 - 214 [facility] [place] [address] DO Work Phone: [phone] Laboratory - Chemistry and C hemistry - challengeon 12-28-2020 Albumin BCP dye [Mass/Vol] 4.6 g/dL 3.4 - 5.0 [facility] [address] DO Work Phone: [phone] ALP [Catalytic activity/Vol] 54 U/L 33 - 136 [facility] [address] DO Work Phone: [phone] ALT With P-5'-P [Catalytic activity/Vol] 24 U/L 10 - 52 [place] [address] DO Work Phone: Comment on above: Patients treated wit h Sulfasalazine may generate falsely decreased results for ALT. Anion gap [Moles/Vol] 13 mmol/L 10 - 20 [place] [address] DO Work Phone: AST With P-5'-P [Catalytic activity/Vol] 17 U/L 9 - 39 [place] [address] DO Work Phone: Bilirubin [Mass/Vol] 0.7 mg/dL 0.0 - 1.2 -U [place] [address] DO Work Phone: Calcium [Mass/Vol] 9.6 mg/dL 8.6 - 10.3 -[place] [address] DO Work Phone: Chloride [Moles/Vol] 104 mmol/L 98 - 107 -[place] [address] DO Work Phone: CO2 [Moles/Vol] 27 mmol/L 21 - 32 -[place] [address] DO Work Phone: Creatinine [Mass/Vol] 0.99 mg/dL See Below [place] [address] DO Work Phone: Comment on above: Reference Range: 0.5 0 - 1.30 Glucose [Mass/Vol] 117 mg/dL above high threshold 74 - 99 [place] [address] DO Work Phone: IgA [Mass/Vol] 154 mg/dL 70 - 400 [place] [address] DO Work Phone: Comment on above: MONOCLONAL PROTEINS MAY CAUSE FALSELY LOWRESULTS IN THIS ASSAY. SERUM PROTEINELECTROPHORESIS SHOULD BE DONE THEFIRST TEST TO EVALUATE MONOCLONAL GAMMOPATHY. IgG [Mass/Vol] 1120 mg/dL 700 - 1600 [place] [address] DO Work Phone: Comment on above: MONOCLONAL PROTEINS MAY CAUSE FALSELY LOWRESULTS IN THIS ASSAY. SERUM PROTEINELECTROPHORESIS SHOULD BE DONE THEFIRST TEST TO EVALUATE MONOCLONAL GAMMOPATHY. IgM [Mass/Vol] 91 mg/dL 40 - 230 [place] [address] DO Work Phone: [phone] Comment on above: MONOCLONAL PROTEINS MAY CAUSE FALSELY LOWRESULTS IN THIS ASSAY. SERUM PROTEINELECTROPHORESIS SHOULD BE DONE THEFIRST TEST TO EVALUATE MONOCLONAL GAMMOPATHY. Iron [Mass/Vol] 80 ug/dL 35 - 150 [facility] 232 DO Work Phone: Iron binding capacity [Mass/Vol] 391 ug/dL 240 - 445 [facility] 232 DO Work Phone: LDH [Catalytic activity/Vol] 155 U/L 84 - 246 [place] [address] DO Work Phone: Potassium [Moles/Vol] 4.3 mmol/L 3.5 - 5.3 [place] [address] DO Work Phone: Sodium [Moles/Vol] 140 mmol/L 136 - 145 [place] [address] DO Work Phone: Thyroglobulin [Mass/Vol] Not Applicable 1.3-31.8 [place] [address] DO Work Phone: [phone] Comment on above: INTERPRETIVE INFORMA TION: Thyroglobulin by LC-MS/MS, Serum/PlasmaLower limit of detection for Thyroglobulin by LC-MS/MS is 0.5 ng/mL.This test was developed and its performance characteristics determined by [facility]. It has not been cleared or approved by the US Food and Drug Administration. This test was performed in a CLIA certified laboratory and is intended for clinical purposes.Performed By: [facility] [place] [id number] Director: Jazlyn Lau MD Thyroglobulin [Mass/Vol] <0.1 below low threshold 1.3-31.8 [place] [address] DO Work Phone: [phone] Comment on above: INTERPRETIVE INFORMA TION: Thyroglobulin, Serum or PlasmaSpecimens negative for thyroglobulin antibodies (TgAb) are tested for thyroglobulin (Tg) by chemiluminescent immunoassay (MERY) using the Dre Varina Access DxI method. Specimens with TgAb results [...] nitrogen [Mass/Vol] 20 mg/dL 6 - 23 [place] [address] DO Work Phone: Laboratory - Coagulationon 1 02-28-2020 aPTT Coag (PPP) [Time] 23 s below low threshold 25 - 35 [place] [address] DO Work Phone: Comment on above: THE APTT IS NO LONGE R USED FOR MONITORING UNFRACTIONATED HEPARIN THERAPY. FOR MONITORING HEPARIN THERAPY, USE THE HEPARIN ASSAY. Fibrin D-dimer DDU (PPP) [Mass/Vol] 462 {ng/mL_FEU} = 500 [place] [address] DO Work Phone: Comment on above: THE D-DIMER ASSAY IS REPORTED IN NG/ML FIBRINOGEN EQUIVALENT UNITS (FEU).THE RESULTS OF THIS ASSAY SHOULD NOT BE USED FOR THE EXCLUSION OF DEEP VEIN THROMBOSIS AND/OR PULMONARY EMBOLISM. INR Coag (PPP) [Relative time] 0.9 {INR} 0.9 - 1.1 [place] [address] DO Work Phone: PT Coag (PPP) [Time] 10.8 s See Below [facility] [place] [address] DO Work Phone: Comment on above: Reference Range: 10. 1 - 13.3 Laboratory - Serology - non- microon 12-28-2020 Centromere protein B Ab Qn (S) <0.2 [place] [address] DO Work Phone: Comment on above: REF VALUES < 1.0 = N EGATIVE >=1.0 = POSITIVE Chromatin Ab Qn <0.2 [place] [address] DO Work Phone: Comment on above: REF VALUES < 1.0 = N EGATIVE >=1.0 = POSITIVE DNA double strand Ab Qn (S) [IU]/mL [place] [address] DO Work Phone: Comment on above: REF VALUESNEGATIVE: <= 4 IU/MLEQUIVOCAL: 5- 9 IU/MLPOSITIVE: >=10 IU/ML Medina-1 extractable nuclear Ab IA Ql (S) <0.2 [place] [address] DO Work Phone: Comment on above: REF VALUES < 1.0 = N EGATIVE >=1.0 = POSITIVE Nuclear Ab Hep2 substrate Ql (S) Positive Abnormal NEGATIVE [place] [address] DO Work Phone: Comment on above: The Antinuclear Anti body (SHI) test was performed using indirect immunofluorescence assay with HEp-2 cells slide. Nuclear Ab IF (S) [Titer] 1:160 [place] [address] DO Work Phone: Nuclear Ab pattern (S) [Interp] NUCLEOLAR [place] [address] DO Work Phone: Ribonucleoprotein extractable nuclear Ab IA Qn (S) <0.2 [place] [address] DO Work Phone: Comment on above: REF VALUES < 1.0 = N EGATIVE >=1.0 = POSITIVE Ribosomal P Ab Qn (S) <0.2 [place] [address] DO Work Phone: Comment on above: REF VALUES < 1.0 = N EGATIVE >=1.0 = POSITIVE SCL-70 extractable nuclear Ab IA Ql (S) <0.2 [place] [address] DO Work Phone: Comment on above: REF VALUES < 1.0 = N EGATIVE >=1.0 = POSITIVE Sjogrens syndrome-A extractable nuclear Ab IA Qn (S) <0.2 [place] [address] DO Work Phone: Comment on above: REF VALUES < 1.0 = N EGATIVE >=1.0 = POSITIVE Sjogrens syndrome-B extractable nuclear Ab IA Qn (S) 0.3 {AI} [place] [address] DO Work Phone: Comment on above: REF VALUES < 1.0 = N EGATIVE >=1.0 = POSITIVE Mojica extractable nuclear Ab IA Qn (S) <0.2 [place] [address] DO Work Phone: Comment on above: REF VALUES < 1.0 = N EGATIVE >=1.0 = POSITIVE Mojica extractable nuclear Ab+Ribonucleoprotein extractable nuclear Ab IA Ql (S) <0.2 [place] [address] DO Work Phone: Comment on above: REF VALUES < 1.0 = N EGATIVE >=1.0 = POSITIVE Thyroglobulin Ab Qn [IU]/mL 0.0-4.0 [place] [address] DO Work Phone: Comment on above: INTERPRETIVE INFORMA TION: Thyroglobulin Antibody A value of 4.0 IU/mL or less indicates a negative result for thyroglobulin antibodies.The Thyroglobulin Antibody assay is being performed using the kSARIA Access DxI method. MISCELLANEOUS TESTon 021 MISCELLANEOUS TEST Canceled [place] [address] DO Work Phone: No Panel Informationon 12-28 1.11 1 See Below [place] [address] DO Work Phone: Comment on above: Reference [...] the testing laboratory. 1.49 mg/dL See Below [place] [address] DO Work Phone: Comment on above: Reference Range: 0.5 7 - 2.63 1.66 mg/dL See Below [facility] 232 DO Work Phone: [phone] Comment on above: Reference Range: 0.3 3 - 1.94 20 % below low threshold 25 - 45 [facility] 232 DO Work Phone: >60 >60 [facility] 232 DO Work Phone: [phone] Comment on above: CALCULATIONS OF LILI MATED GFR ARE PERFORMED USING THE MDRD STUDY EQUATION FOR THE IDMS-TRACEABLE CREATININE METHODS. CLIN CHEM 2007;53:766-72 PROTEIN ELECTROPHORESIS,SERU 12-28-2020 Albumin [Mass/Vol] 4.6 g/dL 3.4 - 5.0 [facility] 232 DO Work Phone: Protein [Mass/Vol] 7.4 g/dL 6.4 - 8.2 [facility]- [facility] 232 DO Work Phone: PROTEIN ELECTROPHORESIS,SERUM NORMAL [facility] 232 DO Work Phone: PROTEIN ELECTROPHORESIS,SERUM 1.0 g/dL 0.5 - 1.4 [facility] [place] 232 DO Work Phone: PROTEIN ELECTROPHORESIS,SERUM 0.8 g/dL 0.5 - 1.2 [facility] - [facility] 232 DO Work Phone: PROTEIN ELECTROPHORESIS,SERUM 0.7 g/dL 0.4 - 1.1 [facility] 232 DO Work Phone: PROTEIN ELECTROPHORESIS,SERUM 0.3 g/dL 0.2 - 0.6 [facility] 232 DO Work Phone: [phone] Path Review Blake 12-28-2020 Path Review JOSE SHEETS [facility]- [facility] 232 DO Work Phone: [phone] Comment on above: By her/his signature above, the Pathologist listed as making the final interpretation certifies that she/he has personally reviewed this case. Prostate Specific Antigenon 12-28-2020 Prostate specific Ag [Mass/Vol] 0.37 ng/mL See Below [place] [address] DO Work Phone: Comment on above: Reference Range: 0.0 0 - 4.00The FDA requires that the method used for PSA assay be reported to the physician. Values obtained with different assay methods must not be used interchangeably. This test was performed at [facility] using the [employer] PSA method, which is a sandwich immunoassay using chemiluminescence for quantitation. The assay is approvedfor measurement of prostate-specific antigen (PSA) in serum and may be used in conjunction with a digital rectalexamination in men 50 years and older as an aid in detection of prostate cancer. 3-Zqace-ganiaqqni inhibitors (e.g. Proscar, Finasteride, Avodart, Dutasteride and Nazia) for the treatment of BPH have been shown to lower PSA levels by an average of 50% after 6 months of treatment. Reticulocyte Counton 12-28- 021 Reticulocyte Count 39 pg above high threshold 28 - 38 [place] [address] DO Work Phone: Reticulocyte Count 10.2 % 0.0 - 16.0 [place] [address] DO Work Phone: Reticulocyte Count 0.063 {x10E12/L} See Below [place] [address] DO Work Phone: Comment on above: Reference Range: 0.0 22 - 0.118 Reticulocyte Count 1.3 % 0.5 - 2.0 [place] [address] DO Work Phone: Sedimentation Rate, Erythroc yteon 12-28-2020 ESR (Bld) [Velocity] 12 mm/h 0 - 20 [facility] [place] [address] DO Work Phone: T4 - Free Thyroxine, Serumon 12-28-2020 Free T4 [Mass/Vol] 1.76 ng/dL above high threshold See Below [place] [address] DO Work Phone: Comment on above: Reference Range: 0.7 8 - 1.48 Thyroxine Free testing is performed using different testing methodology at [facility] than at other [facility]. Direct result comparisons should only be made within the same method. TSH - Thyroid Stimulating Ho rmone, Serumon 12-28-2020 TSH Qn 1.32 m[IU]/L See Below [place] [address] DO Work Phone: Comment on above: Reference Range: 0.4 4 - 3.98 TSH testing is performed using different testing methodology at [facility] than at other [facility]. Direct result comparisons should only be made within the same method. Triiodothyronine, Level (T3) on 12-28-2020 T3 [Mass/Vol] 113 ng/dL 60 - 200 [place] [address] DO Work Phone: Influenza virus A and B and SARS-CoV-2 (COVID-19) Ag panel - Upper respiratory specim SARS-CoV-2 (COVID-19) RNA YOLY+probe Ql (Resp) [facility] Work Phone: RSV Ag EIA RSV Ag Immune stain Ql (Tiss) [facility] Work Phone: Vital Signs Date Time Vital Sign Value Performing Clinician Facility 10-08-2024 08:19-0400 Body mass index (BMI) [Ratio] 31.4 kg/m2 Dr. Biju Lobo DO Work Phone: [facility] 10-08-2024 08:19-0400 Body weight 96.[address] Biju Lobo DO Work Phone: [facility] 10-08-2024 08:19-0400 Diastolic blood pressure 84 mm[Hg] Dr. Biju Lobo DO Work Phone: [facility] 10-08-2024 08:19-0400 Heart rate 83 /min Dr. Biju Lobo DO Work Phone: [facility] 10-08-2024 08:19-0400 Respiratory rate 18 /min Dr. Biju Lobo DO Work Phone: [facility] 10-08-2024 08:19-0400 SaO2% (BldA) [Mass fraction] 95 % Dr. Biju Lobo DO Work Phone: [facility] 10-08-2024 08:19-0400 Systolic blood pressure 128 mm[Hg] Dr. Biju Lobo DO Work Phone: [facility] 10-05-2024 07:18-0400 Body height 175.[address] Biju Lobo DO Work Phone: [facility] 10-05-2024 07:18-0400 Body mass index (BMI) [Ratio] 29.9 kg/m2 Dr. Biju Lobo DO Work Phone: [facility] 10-05-2024 07:18-0400 Body weight 92.[address] Biju Lobo DO Work Phone: [facility] 09-18-2024 13:38-0400 Body temperature 98.3 [degF] Dr. Biju Lobo DO Work Phone: [facility] 09-18-2024 13:38-0400 Diastolic blood pressure 99 mm[Hg] Dr. Biju Lobo DO Work Phone: [facility] 09-18-2024 13:38-0400 Heart rate 78 /min Dr. Biju Lobo DO Work Phone: [facility] 09-18-2024 13:38-0400 Inhaled oxygen flow rate 2 L/min Dr. Biju Lobo DO Work Phone: [facility] 09-18-2024 13:38-0400 Respiratory rate 18 /min Dr. Biju Lobo DO Work Phone: [facility] 09-18-2024 13:38-0400 SaO2% (BldA) [Mass fraction] 98 % Dr. Biju Lobo DO Work Phone: [facility] 09-18-2024 13:38-0400 Systolic blood pressure 153 mm[Hg] Dr. Biju Lobo DO Work Phone: [facility] 09-18-2024 04:54-0400 Body mass index (BMI) [Ratio] 31.9 kg/m2 Dr. Biju Lobo DO Work Phone: [facility] 09-18-2024 04:54-0400 Body weight 98.[address] Biju Lobo DO Work Phone: [facility] 09-17-2024 23:33-0400 Diastolic blood pressure 88 mm[Hg] Dr. Biju Lobo DO Work Phone: [facility] 09-17-2024 23:33-0400 Heart rate 77 /min Dr. Biju Lobo DO Work Phone: [facility] 09-17-2024 23:33-0400 Systolic blood pressure 135 mm[Hg] Dr. Biju Lobo DO Work Phone: [facility] 09-17-2024 22:06-0400 Body temperature 99.1 [degF] Dr. Biju Lobo DO Work Phone: [facility] 09-17-2024 22:06-0400 Respiratory rate 18 /min Dr. Biju Lobo DO Work Phone: [facility] 09-17-2024 22:06-0400 SaO2% (BldA) [Mass fraction] 96 % Dr. Biju Lobo DO Work Phone: [facility] 09-17-2024 05:38-0400 Body mass index (BMI) [Ratio] 31.5 kg/m2 Dr. Biju Lobo DO Work Phone: [facility] 09-17-2024 05:38-0400 Body weight 96.[address] Biju Lobo DO Work Phone: [facility] 09-17-2024 03:25-0400 Inhaled oxygen concentration 28 % Dr. Biju Lobo DO Work Phone: [facility] 09-16-2024 11:41-0400 Body height 175.[address] Biju Lobo DO Work Phone: [facility] 09-16-2024 07:40-0400 Inhaled oxygen flow rate 6 L/min Dr. Biju Lobo DO Work Phone: [facility] 09-15-2024 23:00-0400 Body temperature 99.3 [degF] Dr. Biju Lobo DO Work Phone: [facility] 09-15-2024 23:00-0400 Diastolic blood pressure 70 mm[Hg] Dr. Biju Lobo DO Work Phone: [facility] 09-15-2024 23:00-0400 Heart rate 84 /min Dr. Biju Lobo DO Work Phone: [facility] 09-15-2024 23:00-0400 Respiratory rate 24 /min Dr. Biju Lobo DO Work Phone: [facility] 09-15-2024 23:00-0400 SaO2% (BldA) [Mass fraction] 87 % Dr. Biju Lobo DO Work Phone: [facility] 09-15-2024 23:00-0400 Systolic blood pressure 107 mm[Hg] Dr. Biju Lobo DO Work Phone: [facility] 09-15-2024 17:10-0400 Body mass index (BMI) [Ratio] 30.8 kg/m2 Dr. Biju Lobo DO Work Phone: [facility] 09-15-2024 17:10-0400 Body weight 94.[address] Biju Lobo DO Work Phone: [facility] 09-15-2024 17:08-0400 Body height 175.[address] Biju Lobo DO Work Phone: [facility] 09-07-2024 15:34-0400 Body mass index (BMI) [Ratio] 29.9 kg/m2 Dr. Biju Lobo DO Work Phone: [facility] 09-07-2024 14:37-0400 Heart rate 80 /min Dr. Biju Lobo DO Work Phone: [facility] 09-07-2024 14:37-0400 SaO2% (BldA) [Mass fraction] 91 % Dr. Biju Lobo DO Work Phone: [facility] 09-07-2024 14:23-0400 Body height 175.[address] Biju Lobo DO Work Phone: [facility] 09-07-2024 14:23-0400 Body weight 92.[address] Biju Lobo DO Work Phone: [facility] 09-07-2024 14:12-0400 Diastolic blood pressure 83 mm[Hg] Dr. Biju Lobo DO Work Phone: [facility] 09-07-2024 14:12-0400 Systolic blood pressure 126 mm[Hg] Dr. Biju Lobo DO Work Phone: [facility] 09-02-2024 08:43-0400 Body mass index (BMI) [Ratio] 30.2 kg/m2 Dr. Biju Lobo DO Work Phone: [facility] 09-02-2024 08:43-0400 Body temperature 97.6 [degF] Dr. Biju Lobo DO Work Phone: [facility] 09-02-2024 08:43-0400 Body weight 92.[address] Biju Lobo DO Work Phone: [facility] 09-02-2024 08:43-0400 Diastolic blood pressure 84 mm[Hg] Dr. Biju Lobo DO Work Phone: [facility] 09-02-2024 08:43-0400 Heart rate 74 /min Dr. Biju Lobo DO Work Phone: [facility] 09-02-2024 08:43-0400 Respiratory rate 20 /min Dr. Biju Lobo DO Work Phone: [facility] 09-02-2024 08:43-0400 SaO2% (BldA) [Mass fraction] 94 % Dr. Biju Lobo DO Work Phone: [facility] 09-02-2024 08:43-0400 Systolic blood pressure 120 mm[Hg] Dr. Biju Lobo DO Work Phone: [facility] 07-23-2024 17:26-0400 Diastolic blood pressure 76 mm[Hg] Dr. Biju Lobo DO Work Phone: [facility] 07-23-2024 17:26-0400 Systolic blood pressure 106 mm[Hg] Dr. Biju Lobo DO Work Phone: [facility] 07-23-2024 11:41-0400 Body temperature 98.6 [degF] Dr. Biju Lobo DO Work Phone: [facility] 07-23-2024 11:41-0400 Body weight 92.[address] Biju Lobo DO Work Phone: [facility] 07-23-2024 11:41-0400 Diastolic blood pressure 81 mm[Hg] Dr. Biju Lobo DO Work Phone: [facility] 07-23-2024 11:41-0400 Heart rate 85 /min Dr. Biju Lobo DO Work Phone: [facility] 07-23-2024 11:41-0400 Respiratory rate 17 /min Dr. Biju Lobo DO Work Phone: [facility] 07-23-2024 11:41-0400 SaO2% (BldA) [Mass fraction] 94 % Dr. Biju Lobo DO Work Phone: [facility] 07-23-2024 11:41-0400 Systolic blood pressure 130 mm[Hg] Dr. Biju Lobo DO Work Phone: [facility] 07-15-2024 08:22-0400 Body mass index (BMI) [Ratio] 29.9 kg/m2 Dr. Biju Lobo DO Work Phone: [facility] 07-15-2024 08:22-0400 Body temperature 97.8 [degF] Dr. Biju Lobo DO Work Phone: [facility] 07-15-2024 08:22-0400 Body weight 92.[address] Biju Lobo DO Work Phone: [facility] 07-15-2024 08:22-0400 Diastolic blood pressure 83 mm[Hg] Dr. Biju Lobo DO Work Phone: [facility] 07-15-2024 08:22-0400 Heart rate 78 /min Dr. Biju Lobo DO Work Phone: [facility] 07-15-2024 08:22-0400 Respiratory rate 20 /min Dr. Biju Lobo DO Work Phone: [facility] 07-15-2024 08:22-0400 SaO2% (BldA) [Mass fraction] 94 % Dr. Biju Lobo DO Work Phone: [facility] 07-15-2024 08:22-0400 Systolic blood pressure 126 mm[Hg] Dr. Biju Lobo DO Work Phone: [facility] 07-02-2024 12:51-0400 Body height 175.[address] Biju Lobo DO Work Phone: [facility] 07-02-2024 12:51-0400 Body weight 90.[address] Biju Lobo DO Work Phone: [facility] 07-02-2024 12:51-0400 Heart rate 85 /min Dr. Biju Lobo DO Work Phone: [facility] 07-02-2024 12:51-0400 SaO2% (BldA) [Mass fraction] 91 % Dr. Biju Lobo DO Work Phone: [facility] 06-24-2024 10:59-0400 Body height 175.3 cm Hemant Galvan MD Work Phone: [facility] 06-24-2024 10:59-0400 Body mass index (BMI) [Ratio] 30.42 kg/m2 Hemant Galvan MD Work Phone: [facility] 06-24-2024 10:59-0400 Body weight 93.44 kg Hemant Galvan MD Work Phone: [facility] 06-24-2024 10:59-0400 Diastolic blood pressure 69 mm[Hg] Hemant Galvan MD Work Phone: [facility] 06-24-2024 10:59-0400 Heart rate 80 /min Hemant Galvan MD Work Phone: [facility] 06-24-2024 10:59-0400 Respiratory rate 18 /min Hemant Galvan MD Work Phone: [facility] 06-24-2024 10:59-0400 SaO2% (BldA) [Mass fraction] 94 % Hemant Galvan MD Work Phone: [facility] 06-24-2024 10:59-0400 Systolic blood pressure 112 mm[Hg] Hemant Galvan MD Work Phone: [facility] 05-27-2024 08:22-0400 Body height 175.[address] Biju Lobo DO Work Phone: [facility] 05-27-2024 08:22-0400 Body mass index (BMI) [Ratio] 29 kg/m2 Dr. Biju Lobo DO Work Phone: [facility] 05-27-2024 08:22-0400 Body temperature 97.5 [degF] Dr. Biju Lobo DO Work Phone: [facility] 05-27-2024 08:22-0400 Body weight 89.[address] Biju Lobo DO Work Phone: [facility] 05-27-2024 08:22-0400 Diastolic blood pressure 82 mm[Hg] Dr. Biju Lobo DO Work Phone: [facility] 05-27-2024 08:22-0400 Heart rate 78 /min Dr. Biju Lobo DO Work Phone: [facility] 05-27-2024 08:22-0400 Respiratory rate 18 /min Dr. Biju Lobo DO Work Phone: [facility] 05-27-2024 08:22-0400 SaO2% (BldA) [Mass fraction] 98 % Dr. Biju Lobo DO Work Phone: [facility] 05-27-2024 08:22-0400 Systolic blood pressure 121 mm[Hg] Dr. Biju Lobo DO Work Phone: [facility] 05-26-2024 13:30-0400 Diastolic blood pressure 64 mm[Hg] Dr. Biju Lobo DO Work Phone: [facility] 05-26-2024 13:30-0400 Heart rate 86 /min Dr. Biju Lobo DO Work Phone: [facility] 05-26-2024 13:30-0400 Systolic blood pressure 89 mm[Hg] Dr. Biju Lobo DO Work Phone: [facility] 05-26-2024 13:02-0400 Body mass index (BMI) [Ratio] 29.3 kg/m2 Dr. Biju Lobo DO Work Phone: [facility] 05-26-2024 13:02-0400 Body temperature 98.2 [degF] Dr. Biju Lobo DO Work Phone: [facility] 05-26-2024 13:02-0400 Body weight 90.[address] Biju Lobo DO Work Phone: [facility] 05-26-2024 13:02-0400 Respiratory rate 16 /min Dr. Biju Lobo DO Work Phone: [facility] 05-26-2024 13:02-0400 SaO2% (BldA) [Mass fraction] 93 % Dr. Biju Lobo DO Work Phone: [facility] 04-15-2024 09:07-0500 Body mass index (BMI) [Ratio] 28.9 kg/m2 Dr. Biju Lobo DO Work Phone: [facility] 04-15-2024 09:07-0500 Body temperature 97.2 [degF] Dr. Biju Lobo DO Work Phone: [facility] 04-15-2024 09:07-0500 Body weight 88.[address] Biju Lobo DO Work Phone: [facility] 04-15-2024 09:07-0500 Diastolic blood pressure 84 mm[Hg] Dr. Biju Lobo DO Work Phone: [facility] 04-15-2024 09:07-0500 Heart rate 87 /min Dr. Biju Lobo DO Work Phone: [facility] 04-15-2024 09:07-0500 Respiratory rate 18 /min Dr. Biju Lobo DO Work Phone: [facility] 04-15-2024 09:07-0500 SaO2% (BldA) [Mass fraction] 96 % Dr. Biju Lobo DO Work Phone: [facility] 04-15-2024 09:07-0500 Systolic blood pressure 125 mm[Hg] Dr. Biju Lobo DO Work Phone: [facility] 04-01-2024 08:41-0500 Body mass index (BMI) [Ratio] 29.9 kg/m2 Dr. Biju Lobo DO Work Phone: [facility] 04-01-2024 08:41-0500 Body weight 92.[address] Biju Lobo DO Work Phone: [facility] 04-01-2024 08:41-0500 Diastolic blood pressure 62 mm[Hg] Dr. Biju Lobo DO Work Phone: [facility] 04-01-2024 08:41-0500 Heart rate 91 /min Dr. Biju Lobo DO Work Phone: [facility] 04-01-2024 08:41-0500 Respiratory rate 18 /min Dr. Biju Lobo DO Work Phone: [facility] 04-01-2024 08:41-0500 Systolic blood pressure 93 mm[Hg] Dr. Biju Lobo DO Work Phone: [facility] 03-25-2024 10:56-0500 Body height 175.3 cm Hemant Galvan MD Work Phone: [facility] 03-25-2024 10:56-0500 Body mass index (BMI) [Ratio] 28.65 kg/m2 Hemant Galvan MD Work Phone: [facility] 03-25-2024 10:56-0500 Body temperature 98.1 [degF] Hemant Galvan MD Work Phone: [facility] 03-25-2024 10:56-0500 Body weight 88 kg Hemant Galvan MD Work Phone: [facility] 03-25-2024 10:56-0500 Diastolic blood pressure 57 mm[Hg] Hemant Galvan MD Work Phone: [facility] 03-25-2024 10:56-0500 Heart rate 91 /min Hemant Galvan MD Work Phone: [facility] 03-25-2024 10:56-0500 Respiratory rate 16 /min Hemant Galvan MD Work Phone: [facility] 03-25-2024 10:56-0500 SaO2% (BldA) [Mass fraction] 94 % Hemant Galvan MD Work Phone: [facility] 03-25-2024 10:56-0500 Systolic blood pressure 91 mm[Hg] Hemant Galvan MD Work Phone: [facility] 03-16-2024 13:57-0500 Diastolic blood pressure 62 mm[Hg] Dr. Biju Lobo DO Work Phone: [facility] 03-16-2024 13:57-0500 Systolic blood pressure 86 mm[Hg] Dr. Biju Lobo DO Work Phone: [facility] 03-16-2024 11:35-0500 Body height 175.[address] Biju Lobo DO Work Phone: [facility] 03-16-2024 11:35-0500 Body mass index (BMI) [Ratio] 27.8 kg/m2 Dr. Biju Lobo DO Work Phone: [facility] 03-16-2024 11:35-0500 Body temperature 98.4 [degF] Dr. Biju Lobo DO Work Phone: [facility] 03-16-2024 11:35-0500 Body weight 85.[address] Biju Lobo DO Work Phone: [facility] 03-16-2024 11:35-0500 Heart rate 87 /min Dr. Biju Lobo DO Work Phone: [facility] 03-16-2024 11:35-0500 Respiratory rate 16 /min Dr. Biju Lobo DO Work Phone: [facility] 03-16-2024 11:35-0500 SaO2% (BldA) [Mass fraction] 98 % Dr. Biju Lobo DO Work Phone: [facility] 03-08-2024 17:48-0500 Body temperature 97.5 [degF] Dr. Biju Lobo DO Work Phone: [facility] 03-08-2024 17:48-0500 Diastolic blood pressure 95 mm[Hg] Dr. Biju Lobo DO Work Phone: [facility] 03-08-2024 17:48-0500 Heart rate 89 /min Dr. Biju Lobo DO Work Phone: [facility] 03-08-2024 17:48-0500 Respiratory rate 24 /min Dr. Biju Lobo DO Work Phone: [facility] 03-08-2024 17:48-0500 SaO2% (BldA) [Mass fraction] 93 % Dr. Biju Lobo DO Work Phone: [facility] 03-08-2024 17:48-0500 Systolic blood pressure 138 mm[Hg] Dr. Biju Lobo DO Work Phone: [facility] 03-08-2024 15:47-0500 Inhaled oxygen flow rate 3 L/min Dr. Biju Lobo DO Work Phone: [facility] 03-08-2024 15:26-0500 Body mass index (BMI) [Ratio] 28.2 kg/m2 Dr. Biju Lobo DO Work Phone: [facility] 03-08-2024 15:26-0500 Body weight 86.[address] Biju Lobo DO Work Phone: [facility] 12-27-2023 10:57-0500 Body height 175.3 cm Hemant Galvan MD Work Phone: [facility] 12-27-2023 10:57-0500 Body mass index (BMI) [Ratio] 27.47 kg/m2 Hemant Galvan MD Work Phone: [facility] 12-27-2023 10:57-0500 Body temperature 98.29 [degF] Hemant Galvan MD Work Phone: [facility] 12-27-2023 10:57-0500 Body weight 84.37 kg Hemant Galvan MD Work Phone: [facility] 12-27-2023 10:57-0500 Diastolic blood pressure 75 mm[Hg] Hemant Galvan MD Work Phone: [facility] 12-27-2023 10:57-0500 Heart rate 74 /min Hemant Galvan MD Work Phone: [facility] 12-27-2023 10:57-0500 Respiratory rate 16 /min Hemant Galvan MD Work Phone: [facility] 12-27-2023 10:57-0500 SaO2% (BldA) [Mass fraction] 95 % Hemant Galvan MD Work Phone: [facility] 12-27-2023 10:57-0500 Systolic blood pressure 124 mm[Hg] Hemant Galvan MD Work Phone: [facility] 10-17-2023 09:35-0400 Body mass index (BMI) [Ratio] 28.35 kg/m2 Rj Trammell MD Work Phone: [facility] 10-17-2023 09:35-0400 Body weight 87.09 kg Rj Trammell MD Work Phone: [facility] 10-17-2023 09:35-0400 Diastolic blood pressure 85 mm[Hg] Rj Trammell MD Work Phone: [facility] 10-17-2023 09:35-0400 Heart rate 63 /min Rj Trammell MD Work Phone: [facility] 10-17-2023 09:35-0400 Systolic blood pressure 118 mm[Hg] Rj Trammell MD Work Phone: [facility] 10-02-2023 09:22-0400 Body height 175.3 cm Hemant Galvan MD Work Phone: [facility] 10-02-2023 09:22-0400 Body mass index (BMI) [Ratio] 29.68 kg/m2 Hemant Galvan MD Work Phone: [facility] 10-02-2023 09:22-0400 Body temperature 96.49 [degF] Hemant Galvan MD Work Phone: [facility] 10-02-2023 09:22-0400 Body weight 91.17 kg Hemant Galvan MD Work Phone: [facility] 10-02-2023 09:22-0400 Diastolic blood pressure 82 mm[Hg] Hemant Galvan MD Work Phone: [facility] 10-02-2023 09:22-0400 Heart rate 65 /min Hemant Galvan MD Work Phone: [facility] 10-02-2023 09:22-0400 Respiratory rate 16 /min Hemant Galvan MD Work Phone: [facility] 10-02-2023 09:22-0400 SaO2% (BldA) [Mass fraction] 95 % Hemant Galvan MD Work Phone: [facility] 10-02-2023 09:22-0400 Systolic blood pressure 111 mm[Hg] Hemant Galvan MD Work Phone: [facility] 09-07-2023 07:44-0400 Body temperature 98.1 [degF] Hemant Galvan MD Work Phone: [facility] 09-07-2023 07:44-0400 Diastolic blood pressure 71 mm[Hg] Hemant Galvan MD Work Phone: [facility] 09-07-2023 07:44-0400 Heart rate 72 /min Hemant Galvan MD Work Phone: [facility] 09-07-2023 07:44-0400 Respiratory rate 16 /min Hemant Galvan MD Work Phone: [facility] 09-07-2023 07:44-0400 SaO2% (BldA) [Mass fraction] 92 % Hemant Galvan MD Work Phone: [facility] 09-07-2023 07:44-0400 Systolic blood pressure 117 mm[Hg] Hemant Galvan MD Work Phone: [facility] 09-02-2023 13:36-0400 Body height 175.3 cm Hemant Galvan MD Work Phone: [facility] 09-02-2023 13:36-0400 Body mass index (BMI) [Ratio] 29.09 kg/m2 Hemant Galvan MD Work Phone: [facility] 09-02-2023 13:36-0400 Body weight 89.36 kg Hemant Galvan MD Work Phone: [facility] 07-10-2023 13:22-0400 Body height 175.3 cm Hemnat Galvan MD Work Phone: [facility] Comment on above: verbal 07-10-2023 13:22-0400 Body mass index (BMI) [Ratio] 29.87 kg/m2 Hemant Galvan MD Work Phone: [facility] 07-10-2023 13:22-0400 Body temperature 98.29 [degF] Hemant Galvan MD Work Phone: [facility] 07-10-2023 13:22-0400 Body weight 91.76 kg Hemant Galvan MD Work Phone: [facility] 07-10-2023 13:22-0400 Diastolic blood pressure 85 mm[Hg] Hemant Galvan MD Work Phone: [facility] 07-10-2023 13:22-0400 Heart rate 65 /min Hemant Galvan MD Work Phone: [facility] 07-10-2023 13:22-0400 Respiratory rate 18 /min Hemant Galvan MD Work Phone: [facility] 07-10-2023 13:22-0400 SaO2% (BldA) [Mass fraction] 96 % Hemant Galvan MD Work Phone: [facility] 07-10-2023 13:22-0400 Systolic blood pressure 140 mm[Hg] Hemant Galvan MD Work Phone: [facility] 06-21-2023 08:15-0400 Body height 175.[address] Biju Lobo Work Phone: [facility] 06-21-2023 08:15-0400 Body mass index (BMI) [Ratio] 30.1 kg/m2 Dr. Biju Lobo Work Phone: [facility] 06-21-2023 08:15-0400 Body temperature 98 [degF] Dr. Biju Lobo Work Phone: [facility] 06-21-2023 08:15-0400 Body weight 92.[address] Biju Lobo Work Phone: [facility] 06-21-2023 08:15-0400 Diastolic blood pressure 67 mm[Hg] Dr. Biju Lobo Work Phone: [facility] 06-21-2023 08:15-0400 Heart rate 71 /min Dr. Biju Lobo Work Phone: [facility] 06-21-2023 08:15-0400 Respiratory rate 22 /min Dr. Biju Lobo Work Phone: [facility] 06-21-2023 08:15-0400 SaO2% (BldA) [Mass fraction] 93 % Dr. Biju Lobo Work Phone: [facility] 06-21-2023 08:15-0400 Systolic blood pressure 100 mm[Hg] Dr. Biju Lobo Work Phone: [facility] 06-18-2023 10:02-0400 Body mass index (BMI) [Ratio] 29.9 kg/m2 Dr. Biju Lobo Work Phone: [facility] 06-18-2023 10:02-0400 Body weight 92.[address] Biju Lobo Work Phone: [facility] 06-18-2023 10:02-0400 Diastolic blood pressure 71 mm[Hg] Dr. Biju Lobo Work Phone: [facility] 06-18-2023 10:02-0400 Heart rate 78 /min Dr. Biju Lobo Work Phone: [facility] 06-18-2023 10:02-0400 Respiratory rate 18 /min Dr. Biju Lobo Work Phone: [facility] 06-18-2023 10:02-0400 Systolic blood pressure 105 mm[Hg] Dr. Biju Lobo Work Phone: [facility] 05-29-2023 13:47-0400 Body height 175.3 cm Rj Trammell MD Work Phone: [facility] 05-29-2023 13:47-0400 Body mass index (BMI) [Ratio] 31.75 kg/m2 Rj Trammell MD Work Phone: [facility] 05-29-2023 13:47-0400 Body weight 97.52 kg Rj Trammell MD Work Phone: [facility] 05-29-2023 13:47-0400 Respiratory rate 16 /min Rj Trammell MD Work Phone: [facility] 05-16-2023 12:06-0400 Heart rate 96 /min Dr. Biju Lobo Work Phone: [facility] 05-16-2023 12:06-0400 SaO2% (BldA) [Mass fraction] 95 % Dr. Biju Lobo Work Phone: [facility] 05-16-2023 12:04-0400 Inhaled oxygen flow rate 2 L/min Dr. Biju Lobo Work Phone: [facility] 05-16-2023 07:36-0400 Body height 175.[address] Biju Lobo Work Phone: [facility] 05-16-2023 07:36-0400 Body mass index (BMI) [Ratio] 31.6 kg/m2 Dr. Biju Lobo Work Phone: [facility] 05-16-2023 07:36-0400 Body temperature 97.7 [degF] Dr. Biju Lobo Work Phone: [facility] 05-16-2023 07:36-0400 Body weight 97.[address] Biju Lobo Work Phone: [facility] 05-16-2023 07:36-0400 Diastolic blood pressure 76 mm[Hg] Dr. Biju Lobo Work Phone: [facility] 05-16-2023 07:36-0400 Respiratory rate 16 /min Dr. Biju Lobo Work Phone: [facility] 05-16-2023 07:36-0400 Systolic blood pressure 108 mm[Hg] Dr. Biju Lobo Work Phone: [facility] 05-03-2023 11:54-0400 Body temperature 98.2 [degF] Dr. Biju Lobo Work Phone: [facility] 05-03-2023 11:54-0400 Diastolic blood pressure 77 mm[Hg] Dr. Biju Lobo Work Phone: [facility] 05-03-2023 11:54-0400 Heart rate 71 /min Dr. Biju Lobo Work Phone: [facility] 05-03-2023 11:54-0400 Respiratory rate 15 /min Dr. Biju Lobo Work Phone: [facility] 05-03-2023 11:54-0400 SaO2% (BldA) [Mass fraction] 100 % Dr. Biju Lobo Work Phone: [facility] 05-03-2023 11:54-0400 Systolic blood pressure 175 mm[Hg] Dr. Biju Lobo Work Phone: [facility] 05-03-2023 09:45-0400 Body height 175.[address] Biju Lobo Work Phone: [facility] 05-03-2023 09:45-0400 Body mass index (BMI) [Ratio] 31.8 kg/m2 Dr. Biju Lobo Work Phone: [facility] 05-03-2023 09:45-0400 Body weight 98.[address] Biju Lobo Work Phone: [facility] 03-19-2023 11:45-0500 Body temperature 97.4 [degF] Dr. Biju Lobo Work Phone: [facility] 03-19-2023 11:45-0500 Diastolic blood pressure 68 mm[Hg] Dr. Biju Lobo Work Phone: [facility] 03-19-2023 11:45-0500 Heart rate 67 /min Dr. Biju Lobo Work Phone: [facility] 03-19-2023 11:45-0500 Respiratory rate 18 /min Dr. Biju Lobo Work Phone: [facility] 01-30-2024 11:45-0500 SaO2% (BldA) [Mass fraction] 94 % Dr. Biju Lobo Work Phone: [facility] 03-19-2023 11:45-0500 Systolic blood pressure 111 mm[Hg] Dr. Biju Lobo Work Phone: [facility] 03-19-2023 06:00-0500 Body mass index (BMI) [Ratio] 32.1 kg/m2 Dr. Biju Lobo Work Phone: [facility] 03-19-2023 06:00-0500 Body weight 98.[address] Biju Lobo Work Phone: [facility] 03-18-2023 14:46-0500 Body height 175.[address] Biju Lobo Work Phone: [facility] 03-18-2023 14:05-0500 Inhaled oxygen flow rate 2 L/min Dr. Biju Lobo Work Phone: [facility] 03-16-2023 12:47-0500 Diastolic blood pressure 80 mm[Hg] Dr. Biju Lobo Work Phone: [facility] 03-16-2023 12:47-0500 Heart rate 80 /min Dr. Biju Lobo Work Phone: [facility] 03-16-2023 12:47-0500 Inhaled oxygen flow rate 2 L/min Dr. Biju Lobo Work Phone: [facility] 03-16-2023 12:47-0500 Respiratory rate 16 /min Dr. Biju Lobo Work Phone: [facility] 03-16-2023 12:47-0500 SaO2% (BldA) [Mass fraction] 98 % Dr. Biju Lobo Work Phone: [facility] 03-16-2023 12:47-0500 Systolic blood pressure 109 mm[Hg] Dr. iBju Lobo Work Phone: [facility] 03-16-2023 09:53-0500 Body height 175.[address] Biju Lobo Work Phone: [facility] 03-16-2023 09:53-0500 Body mass index (BMI) [Ratio] 31.9 kg/m2 Dr. Biju Lobo Work Phone: [facility] 03-16-2023 09:53-0500 Body temperature 97.2 [degF] Dr. Biju Lobo Work Phone: [facility] 03-16-2023 09:53-0500 Body weight 98.[address] Biju Lobo Work Phone: [facility] 03-12-2023 07:42-0500 Body mass index (BMI) [Ratio] 32.3 kg/m2 Dr. Biju Lobo Work Phone: [facility] 03-12-2023 07:42-0500 Body temperature 98.6 [degF] Dr. Biju Lobo Work Phone: [facility] 03-12-2023 07:42-0500 Body weight 99.[address] Biju Lobo Work Phone: [facility] 03-12-2023 07:42-0500 Diastolic blood pressure 91 mm[Hg] Dr. Biju Lobo Work Phone: [facility] 03-12-2023 07:42-0500 Heart rate 66 /min Dr. Biju Lobo Work Phone: [facility] 03-12-2023 07:42-0500 SaO2% (BldA) [Mass fraction] 94 % Dr. Biju Lobo Work Phone: [facility] 03-12-2023 07:42-0500 Systolic blood pressure 132 mm[Hg] Dr. Biju Lobo Work Phone: [facility] 01-31-2023 11:26-0500 Body height 175.[address] iBju Lobo Work Phone: [facility] 01-31-2023 11:26-0500 Body mass index (BMI) [Ratio] 32.8 kg/m2 Dr. Biju Lobo Work Phone: [facility] 01-31-2023 11:26-0500 Body temperature 97.8 [degF] Dr. Biju Lobo Work Phone: [facility] 01-31-2023 11:26-0500 Body weight 100.[address] Biju Lobo Work Phone: [facility] 01-31-2023 11:26-0500 Diastolic blood pressure 60 mm[Hg] Dr. Biju Lobo Work Phone: [facility] 01-31-2023 11:26-0500 Heart rate 68 /min Dr. Biju Lobo Work Phone: [facility] 01-31-2023 11:26-0500 Respiratory rate 17 /min Dr. Biju Lobo Work Phone: [facility] 01-31-2023 11:26-0500 SaO2% (BldA) [Mass fraction] 96 % Dr. Biju Lobo Work Phone: [facility] 01-31-2023 11:26-0500 Systolic blood pressure 90 mm[Hg] Dr. Biju Lobo Work Phone: [facility] 12-17-2022 06:44-0400 Body height 175.[address] Biju Lobo Work Phone: [facility] 12-17-2022 06:44-0400 Body mass index (BMI) [Ratio] 33.2 kg/m2 Dr. Biju Lobo Work Phone: [facility] 12-17-2022 06:44-0400 Body temperature 97.9 [degF] Dr. Biju Lobo Work Phone: [facility] 12-17-2022 06:44-0400 Body weight 102.[address] Biju Lobo Work Phone: [facility] 12-17-2022 06:44-0400 Diastolic blood pressure 71 mm[Hg] Dr. Biju Lobo Work Phone: [facility] 12-17-2022 06:44-0400 Heart rate 65 /min Dr. Biju Lobo Work Phone: [facility] 12-17-2022 06:44-0400 Respiratory rate 17 /min Dr. Biju Lobo Work Phone: [facility] 12-17-2022 06:44-0400 SaO2% (BldA) [Mass fraction] 94 % Dr. Biju Lobo Work Phone: [facility] 12-17-2022 06:44-0400 Systolic blood pressure 100 mm[Hg] Dr. Biju Lobo Work Phone: [facility] 11-16-2022 08:27-0400 Body mass index (BMI) [Ratio] 32 kg/m2 Dr. Biju Lobo Work Phone: [facility] 11-16-2022 08:27-0400 Body temperature 96.7 [degF] Dr. Biju Lobo Work Phone: [facility] 11-16-2022 08:27-0400 Body weight 98.[address] Biuj Lobo Work Phone: [facility] 11-16-2022 08:27-0400 Diastolic blood pressure 69 mm[Hg] Dr. Biju Lobo Work Phone: [facility] 11-16-2022 08:27-0400 Heart rate 63 /min Dr. Biju Lobo Work Phone: [facility] 11-16-2022 08:27-0400 Respiratory rate 20 /min Dr. Biju Lobo Work Phone: [facility] 11-16-2022 08:27-0400 SaO2% (BldA) [Mass fraction] 96 % Dr. Biju Lobo Work Phone: [facility] 11-16-2022 08:27-0400 Systolic blood pressure 110 mm[Hg] Dr. Biju Lobo Work Phone: [facility] 09-25-2022 16:10-0400 Body height 175.26 cm Biju Moore [employer] Work Phone: [facility] [address] [place] Work Phone: 09-25-2022 16:10-0400 Body mass index (BMI) [Ratio] 32.49 kg/m2 Biju Moore [employer] Work Phone: [facility]Gfofpzalsi[facility]x [facility] [address] [place] Work Phone: 09-25-2022 16:10-0400 Body surface area Derived from formula 2.15 m2 Biju Moore [employer] Work Phone: [facility]Jayjqglwdh[facility] [address] [place] Work Phone: 09-25-2022 16:10-0400 Body weight 99.79 kg Biju Moore [employer] Work Phone: NQ[facility]Deyiitdfoo-Rtet [address] [place] Work Phone: 09-25-2022 16:10-0400 Diastolic blood pressure 73 mm[Hg] Biju Moore [employer] Work Phone: EN[facility]Fctistjukf[facility]Qyok [address] [place] Work Phone: 09-25-2022 16:10-0400 Heart rate 67 /min Biju Moore [employer] Work Phone: KA-Zxmoefmjsq-Dxrv [address] [place] Work Phone: 09-25-2022 16:10-0400 SaO2% (BldA) [Mass fraction] 98 % Biju Moore [employer] Work Phone: ZD-Qlrnoyamrg-Zfem [address] [place] Work Phone: 09-25-2022 16:10-0400 Systolic blood pressure 115 mm[Hg] Biju Lobo Work Phone: [address] Work Phone: 09-24-2022 15:32-0400 Body height 175.[address] Biju Lobo Work Phone: [facility] 09-24-2022 15:32-0400 Body mass index (BMI) [Ratio] 32.8 kg/m2 Dr. Biju Lobo Work Phone: [facility] 09-24-2022 15:32-0400 Body temperature 98.6 [degF] Dr. Biju Lobo Work Phone: [facility] 09-24-2022 15:32-0400 Body weight 100.[address] Biju Lobo Work Phone: [facility] 09-24-2022 15:32-0400 Diastolic blood pressure 60 mm[Hg] Dr. Biju Lobo Work Phone: [facility] 09-24-2022 15:32-0400 Heart rate 68 /min Dr. Biju Lobo Work Phone: [facility] 09-24-2022 15:32-0400 Respiratory rate 16 /min Dr. Biju Lobo Work Phone: [facility] 09-24-2022 15:32-0400 SaO2% (BldA) [Mass fraction] 92 % Dr. Biju Lobo Work Phone: [facility] 09-24-2022 15:32-0400 Systolic blood pressure 110 mm[Hg] Dr. Biju Lobo Work Phone: [facility] 09-11-2022 08:23-0400 Body mass index (BMI) [Ratio] 32.1 kg/m2 Dr. Biju Lobo Work Phone: [facility] 09-11-2022 08:23-0400 Body temperature 97.5 [degF] Dr. Biju Lobo Work Phone: [facility] 09-11-2022 08:23-0400 Body weight 98.[address] Biju Lobo Work Phone: [facility] 09-11-2022 08:23-0400 Diastolic blood pressure 74 mm[Hg] Dr. Biju Lobo Work Phone: [facility] 09-11-2022 08:23-0400 Heart rate 61 /min Dr. Biju Lobo Work Phone: [facility] 09-11-2022 08:23-0400 Respiratory rate 18 /min Dr. Biju Lobo Work Phone: [facility] 09-11-2022 08:23-0400 SaO2% (BldA) [Mass fraction] 96 % Dr. Biju Lobo Work Phone: [facility] 09-11-2022 08:23-0400 Systolic blood pressure 112 mm[Hg] Dr. Biju Lobo Work Phone: [facility] 08-30-2022 13:18-0400 Body height 175.[address] Biju Lobo Work Phone: [facility] 08-30-2022 13:18-0400 Body weight 97.[address] Biju Lobo Work Phone: [facility] 08-30-2022 13:18-0400 Heart rate 67 /min Dr. Biju Lobo Work Phone: [facility] 08-30-2022 13:18-0400 SaO2% (BldA) [Mass fraction] 97 % Dr. Biju Lobo Work Phone: [facility] 07-03-2022 05:57-0400 Body height 175.[address] Biju Lobo Work Phone: [facility] 07-03-2022 05:57-0400 Body mass index (BMI) [Ratio] 33.5 kg/m2 Dr. Biju Lobo Work Phone: [facility] 07-03-2022 05:57-0400 Body temperature 97.6 [degF] Dr. Biju Lobo Work Phone: [facility] 07-03-2022 05:57-0400 Body weight 102.[address] Biju Lobo Work Phone: [facility] 07-03-2022 05:57-0400 Diastolic blood pressure 78 mm[Hg] Dr. Biju Lobo Work Phone: [facility] 07-03-2022 05:57-0400 Heart rate 59 /min Dr. Biju Lobo Work Phone: [facility] 07-03-2022 05:57-0400 Respiratory rate 16 /min Dr. Biju Lobo Work Phone: [facility] 07-03-2022 05:57-0400 SaO2% (BldA) [Mass fraction] 97 % Dr. Biju Lobo Work Phone: [facility] 07-03-2022 05:57-0400 Systolic blood pressure 116 mm[Hg] Dr. Biju Lobo Work Phone: [facility] 06-04-2022 08:59-0400 Body height 175.[address] Biju Lobo Work Phone: [facility] 06-04-2022 08:59-0400 Body mass index (BMI) [Ratio] 33.7 kg/m2 Dr. Biju Lobo Work Phone: [facility] 06-04-2022 08:59-0400 Body temperature 98.2 [degF] Dr. Biju Lobo Work Phone: [facility] 06-04-2022 08:59-0400 Body weight 103.[address] Biju Lobo Work Phone: [facility] 06-04-2022 08:59-0400 Diastolic blood pressure 70 mm[Hg] Dr. Biju Lobo Work Phone: [facility] 06-04-2022 08:59-0400 Heart rate 62 /min Dr. Biju Lobo Work Phone: [facility] 06-04-2022 08:59-0400 Respiratory rate 17 /min Dr. Biju Lobo Work Phone: [facility] 06-04-2022 08:59-0400 SaO2% (BldA) [Mass fraction] 95 % Dr. Biju Lobo Work Phone: [facility] 06-04-2022 08:59-0400 Systolic blood pressure 100 mm[Hg] Dr. Biju Lobo Work Phone: [facility] 03-28-2022 13:11-0500 Body mass index (BMI) [Ratio] 34.74 kg/m2 Biju Moore [employer] Work Phone: [facility]Abslkeo[facility]Msofqrf Work Phone: 03-28-2022 13:11-0500 Body surface area Derived from formula 2.21 m2 Biju Teresa [employer] Work Phone: DT-Ciuqwob-Fmukzob Work Phone: 03-28-2022 13:11-0500 Body weight 106.71 kg Biju Teresa [employer] Phone: OD-Mziebrf-Kwvqtnk Work Phone: 03-28-2022 13:11-0500 Diastolic blood pressure 75 mm[Hg] Biju Moore [employer] Work Phone: BL-Vuezqkc-Irlybtr Work Phone: 03-28-2022 13:11-0500 Heart rate 71 /min Biju Moore [employer] Work Phone: MK-Mjkztbm-Tfdkapk Work Phone: 03-28-2022 13:11-0500 Systolic blood pressure 123 mm[Hg] Biju Moore [employer] Work Phone: TV-Dkxmizx-Estswxk Work Phone: 03-27-2022 15:45-0500 Body height 175.26 cm Biju [employer] Work Phone: XY-Mvazszzaru-Wxef na [address] [place] Work Phone: 03-27-2022 15:45-0500 Body mass index (BMI) [Ratio] 33.97 kg/m2 [employer] Work Phone: WT-Xkrrzrayyi-Qiql na [address] [place] Work Phone: 03-27-2022 15:45-0500 Body surface area Derived from formula 2.19 m2 [employer]iju [employer] Work Phone: QJ-Vkgonxugox-Jwxw na [address] [place] Work Phone: 03-27-2022 15:45-0500 Body weight 104.33 kg Biju [employer] Work Phone: SA-Zasgkmvjnr-Wjjv na [address] [place] Work Phone: 03-27-2022 15:45-0500 Diastolic blood pressure 67 mm[Hg] Biju [employer] Work Phone: IE-Rtdlnlwmiz-Anmm na [address] [place] Work Phone: 03-27-2022 15:45-0500 Heart rate 64 /min [employer] Work Phone: GL-Gpqtthmwsi-Kmqv na 140 [place] Work Phone: 03-27-2022 15:45-0500 SaO2% (BldA) [Mass fraction] 96 % Biju [employer] Work Phone: KI-Bnadbzuoab-Xmce na 140 [place] Work Phone: 03-27-2022 15:45-0500 Systolic blood pressure 103 mm[Hg] Biju [employer] Work Phone: NZ-Aleznyzdcd-Xvzw na 140 [place] Work Phone: 02-07-2022 13:45-0500 Body height 175.26 cm Biju [employer] Phone: [facility] [facility] Work Phone: 02-07-2022 13:45-0500 Body mass index (BMI) [Ratio] 33.57 kg/m2 Biju Moore [employer] Work Phone: [facility] Work Phone: 02-07-2022 13:45-0500 Body surface area Derived from formula 2.18 m2 Biju Moore [employer] Work Phone: [facility] Work Phone: 02-07-2022 13:45-0500 Body temperature 97.9 [degF] Biju Moore [employer] Work Phone: [facility] Work Phone: 02-07-2022 13:45-0500 Body weight 103.11 kg Biju Moore [employer] Work Phone: [facility] Work Phone: 02-07-2022 13:45-0500 Diastolic blood pressure 73 mm[Hg] Biju Moore [employer] Work Phone: [facility] Work Phone: 02-07-2022 13:45-0500 Heart rate 70 /min Biju Moore [employer] Work Phone: [facility] Work Phone: 02-07-2022 13:45-0500 SaO2% (BldA) [Mass fraction] 96 % Biju Moore [employer] Work Phone: [facility] Work Phone: 02-07-2022 13:45-0500 Systolic blood pressure 111 mm[Hg] Biuj Moore [employer] Work Phone: [facility] Work Phone: 02-07-2022 13:45-0500 0 1 Biju Reesman Work Phone: [facility] Work Phone: Comment on above: [facility] 01-24-2022 11:20-0500 Respiratory rate 22 /min [facility] 01-24-2022 10:56-0500 Diastolic blood pressure 62 mm[Hg] [facility] 01-24-2022 10:56-0500 Heart rate 74 /min [facility] 01-24-2022 10:56-0500 SaO2% (BldA) [Mass fraction] 96 % [facility] 01-24-2022 10:56-0500 Systolic blood pressure 89 mm[Hg] [facility] 01-24-2022 09:01-0500 Body temperature 98.9 [degF] [facility] 01-24-2022 08:58-0500 Body height 175.26 cm [facility] 01-24-2022 08:58-0500 Body mass index (BMI) [Ratio] 33.1 kg/m2 [facility] 01-24-2022 08:58-0500 Body weight 101.74 kg [facility] 01-08-2022 13:34-0500 Body mass index (BMI) [Ratio] 32.78 kg/m2 Biju Lobo Work Phone: [facility] Work Phone: 01-08-2022 13:34-0500 Body surface area Derived from formula 2.16 m2 Biju Lobo Work Phone: [facility] Work Phone: 01-08-2022 13:34-0500 Body temperature 98.1 [degF] Biju Reesman Work Phone: [facility] Work Phone: 01-08-2022 13:34-0500 Body weight 100.7 kg Biju Moore [employer] Work Phone: [facility] Work Phone: 01-08-2022 13:34-0500 Diastolic blood pressure 68 mm[Hg] Biju Moore [employer] Work Phone: [facility] Work Phone: 01-08-2022 13:34-0500 Heart rate 99 /min Biju Moore [employer] Work Phone: [facility] Work Phone: 01-08-2022 13:34-0500 SaO2% (BldA) [Mass fraction] 96 % Biju Moore [employer] Work Phone: [facility] Work Phone: 01-08-2022 13:34-0500 Systolic blood pressure 103 mm[Hg] Biju Moore [employer] Work Phone: [facility] Work Phone: 01-08-2022 13:34-0500 0 1 Biju Ramirezutzman Work Phone: [facility] Work Phone: Comment on above: [facility] 11-27-2021 13:27-0400 Body mass index (BMI) [Ratio] 32.49 kg/m2 Biju Moore [employer] Work Phone: [facility] Work Phone: 11-27-2021 13:27-0400 Body surface area Derived from formula 2.15 m2 Biju Moore [employer] Work Phone: [facility] Work Phone: 11-27-2021 13:27-0400 Body temperature 207.86 [degF] Biju Moore [employer] Work Phone: [facility] [...] SaO2% (BldA) [Mass fraction] 96 % Biju Ramirezutzman Work Phone: [facility] Work Phone: 11-27-2021 13:27-0400 Systolic blood pressure 106 mm[Hg] Biju Ramirezutzman Work Phone: [facility] Work Phone: 11-27-2021 13:27-0400 0 1 Biju Ramirezutzman Work Phone: [facility] Work Phone: Comment on above: [facility] 11-14-2021 15:06-0400 Body height 175.26 cm Biju Ramirezutzman Work Phone: MN-Auafkhzjpg-Hshe na [address] [place] Work Phone: 11-14-2021 15:06-0400 Body mass index (BMI) [Ratio] 32.93 kg/m2 Biju Ramirezutzman Work Phone: EQ-Lqyzvzakao-Bxrl na [address] [place] Work Phone: 11-14-2021 15:06-0400 Body surface area Derived from formula 2.16 m2 Biju Moore [employer] Work Phone: DO-Bxymsiccdy-Iafa na [address] [place] Work Phone: 11-14-2021 15:06-0400 Body weight 101.15 kg Biju Moore [employer] Work Phone: YB-Uwfzehettf-Vawg na [address] [place] Work Phone: 11-14-2021 15:06-0400 Diastolic blood pressure 63 mm[Hg] Biju Moore [employer] Work Phone: UL-Lqfwgspnma-Lyxa na [address] [place] Work Phone: 11-14-2021 15:06-0400 Heart rate 87 /min Biju Moore [employer] Work Phone: HZ-Fiizxywjoo-Iqdk na [address] [place] Work Phone: 11-14-2021 15:06-0400 SaO2% (BldA) [Mass fraction] 97 % Biju Moore [employer] Work Phone: YP-Aycxoffkfw-Tufr na [address] [place] Work Phone: 11-14-2021 15:06-0400 Systolic blood pressure 100 mm[Hg] Biju Moore [employer] Work Phone: DE-Ymktozwmgh-Zplv na [address] [place] Work Phone: 10-11-2021 13:26-0400 Body height 175.26 cm Biju Moore [employer] Work Phone: FG-Tqubzvkpxv-Ixej na [address] [place] Work Phone: 10-11-2021 13:26-0400 Body mass index (BMI) [Ratio] 32.78 kg/m2 Biju Moore [employer] Work Phone: TR-Jynhjjoqly-Bros na [address] [place] Work Phone: 10-11-2021 13:26-0400 Body surface area Derived from formula 2.16 m2 Biju Moore [employer] Work Phone: XI-Qphnkbikzt-Zbja na [address] [place] Work Phone: 10-11-2021 13:26-0400 Body weight 100.7 kg [employer]iju [employer] Work Phone: LS-Thjmzelbky-Ffqt na [address] [place] Work Phone: 10-11-2021 13:26-0400 Diastolic blood pressure 78 mm[Hg] Biju Moore [employer] Work Phone: YH-Gwfuhsucdc-Ajbu na [address] [place] Work Phone: 10-11-2021 13:26-0400 Heart rate 78 /min [employer] Work Phone: TO-Zsmyrntitu-Osie na [address] [place] Work Phone: 10-11-2021 13:26-0400 SaO2% (BldA) [Mass fraction] 95 % Biju Moore [employer] Work Phone: BG-Fasomrgumo-Rkjc na [address] [place] Work Phone: 10-11-2021 13:26-0400 Systolic blood pressure 121 mm[Hg] Biju Moore [employer] Work Phone: GN-Wjjymrstnx-Fwdt na [address] [place] Work Phone: 10-11-2021 13:26-0400 0 1 Biju Moore [employer] Work Phone: YO-Qegbevfjzw-Ijxd na [address] [place] Work Phone: Comment on above: [facility] 09-11-2021 14:39-0400 Body height 172.72 cm Biju Moore [employer] Work Phone: WW-Mocinowcsj-Ybal na [address] [place] Work Phone: 09-11-2021 14:39-0400 Body mass index (BMI) [Ratio] 33.15 kg/m2 [employer] Work Phone: HU-Wuxihxwkxj-Hwfu na [address] [place] Work Phone: 09-11-2021 14:39-0400 Body surface area Derived from formula 2.12 m2 Biju Moore [employer] Work Phone: NK-Wdtsjppntq-Dfhq na [address] [place] Work Phone: 09-11-2021 14:39-0400 Body weight 98.88 kg Biju [employer] Work Phone: HO-Zdbpwlwkse-Qxwc na [address] [place] Work Phone: 09-11-2021 14:39-0400 Diastolic blood pressure 85 mm[Hg] Biju Moore [employer] Work Phone: XT-Fazomblqfn-Utbt na [address] [place] Work Phone: 09-11-2021 14:39-0400 Heart rate 73 /min [employer] Work Phone: NK-Olbjdwzmqb-Hbcb na [address] [place] Work Phone: 09-11-2021 14:39-0400 SaO2% (BldA) [Mass fraction] 96 % [employer] Work Phone: KC-Irotdpionu-Hzfx na [address] [place] Work Phone: 09-11-2021 14:39-0400 Systolic blood pressure 122 mm[Hg] Biju Moore [employer] Work Phone: AA-Lcphbnqveq-Qxzk na [address] [place] Work Phone: 06-23-2021 14:31-0400 Body height 172.72 cm Biju [employer] Work Phone: [facility] [facility] Work Phone: 06-23-2021 14:31-0400 Body mass index (BMI) [Ratio] 32.69 kg/m2 [employer]iju [employer] Work Phone: [facility] [facility] Work Phone: 06-23-2021 14:31-0400 Body surface area Derived from formula 2.11 m2 Biju Moore [employer] Work Phone: [facility] Work Phone: 06-23-2021 14:31-0400 Body weight 97.52 kg Biju Ramirezutzman Work Phone: [facility] Work Phone: 06-23-2021 14:31-0400 Diastolic blood pressure 84 mm[Hg] Biju Ramirezutzman Work Phone: [facility] Work Phone: 06-23-2021 14:31-0400 Heart rate 72 /min Biju Ramirezutzman Work Phone: [facility] Work Phone: 06-23-2021 14:31-0400 SaO2% (BldA) [Mass fraction] 96 % Biju Ramirezutzman Work Phone: [facility] Work Phone: 06-23-2021 14:31-0400 Systolic blood pressure 142 mm[Hg] Biju Reesman Work Phone: [facility] Work Phone: 06-21-2021 13:27-0400 Body mass index (BMI) [Ratio] 32.23 kg/m2 Biju Ramirezutzman Work Phone: [facility] Work Phone: 06-21-2021 13:27-0400 Body surface area Derived from formula 2.1 m2 Biju Ramirezutzman Work Phone: [facility] [...] temperature 97.88 [degF] Biju Lobo Other Phone: [facility] 06-08-2021 17:35-0400 Diastolic blood pressure 71 mm[Hg] Biju RamirezYamil Other Phone: [facility] 06-08-2021 17:35-0400 Heart rate 81 /min Biju Lobo Other Phone: [facility] 06-08-2021 17:35-0400 Respiratory rate 18 /min Biju Lobo Other Phone: [facility] 06-08-2021 17:35-0400 SaO2% (BldA) [Mass fraction] 96 % Biju Lobo Other Phone: [facility] 06-08-2021 17:35-0400 Systolic blood pressure 102 mm[Hg] Biju Lobo Other Phone: [facility] 06-08-2021 10:25-0400 Body weight 96.8 kg Biju Lobo Other Phone: [facility] 05-02-2021 09:52-0400 Body height 172.72 cm Biju Lobo Work Phone: [facility] [place] Work Phone: 05-02-2021 09:52-0400 Body mass index (BMI) [Ratio] 32.99 kg/m2 Biju Ramirezutzman Work Phone: [facility] [place] Work Phone: 05-02-2021 09:52-0400 Body surface area Derived from formula 2.12 m2 Biju Lobo Work Phone: [facility] [place] Work Phone: 05-02-2021 09:52-0400 Body temperature 207.5 [degF] Biju Ramirezutzman Work Phone: [facility] [place] Work Phone: 05-02-2021 09:52-0400 Body weight 98.43 kg Biju Lobo Work Phone: [facility] [place] Work Phone: 05-02-2021 09:52-0400 0 1 Biju Reesman Work Phone: [facility] [place] Work Phone: Comment on above: [facility] 04-03-2021 14:19-0500 Body height 177.8 cm Biju Ramirezutzman Work Phone: PZ-Kgfnohznri-Xxbh n 204 [place] Work Phone: 04-03-2021 14:19-0500 Body mass index (BMI) [Ratio] 31.68 kg/m2 Biju Moore [employer] Work Phone: OG-Yejyaplobl-Mfza n 204 [place] Work Phone: 04-03-2021 14:19-0500 Body surface area Derived from formula 2.18 m2 Biju Moore [employer] Work Phone: SR-Ilwwvepugi-Uzoz n 204 [place] Work Phone: 04-03-2021 14:19-0500 Body temperature 208.94 [degF] Biju Ramirezutzman Work Phone: AP-Ypphmrknqx-Gqfo n 204 [place] Work Phone: 04-03-2021 14:19-0500 Body weight 100.15 kg Biju Ramirezutzman Work Phone: OD-Cugpvlnsig-Rcxc n 204 [place] Work Phone: 04-03-2021 14:19-0500 Diastolic blood pressure 72 mm[Hg] Biju Ramirezutzman Work Phone: MH-Bjktqjvlhv-Rsgs n 204 [place] Work Phone: 04-03-2021 14:19-0500 Heart rate 81 /min Biju Moore [employer] Work Phone: EW-Rtpbulphem-Eblj n 204 [place] Work Phone: 04-03-2021 14:19-0500 SaO2% (BldA) [Mass fraction] 96 % Biju Moore [employer] Work Phone: OG-Jjvtnmtzxr-Ocmf n 204 [place] Work Phone: 04-03-2021 14:19-0500 Systolic blood pressure 107 mm[Hg] Biju Ramirezutzman Work Phone: ID-Ohqpmsaixp-Xonw n 204 [place] Work Phone: 03-29-2021 14:56-0500 Body height 177.8 cm Biju Ramirezutzman Work Phone: ZZ-Zvaneiwodu-Oxcu n 204 [place] Work Phone: 03-29-2021 14:56-0500 Body mass index (BMI) [Ratio] 31.21 kg/m2 Biju Ramirezutzman Work Phone: OB-Fjuonxrykw-Filk n 204 [place] Work Phone: 03-29-2021 14:56-0500 Body surface area Derived from formula 2.16 m2 Biju Ramirezutzman Work Phone: EN-Wbmcqasktx-Thir n 204 [place] Work Phone: 03-29-2021 14:56-0500 Body weight 98.66 kg Biju Ramirezutzman Work Phone: YT-Sojndvepvt-Usam n 204 [place] Work Phone: 03-22-2021 13:37-0500 Body mass index (BMI) [Ratio] 30.85 kg/m2 Biju Ramirezutzman Work Phone: [facility] Work Phone: 03-22-2021 13:37-0500 Body surface area Derived from formula 2.15 m2 Biju Moore [employer] Work Phone: [facility] Work Phone: 03-22-2021 13:37-0500 Body temperature 207.86 [degF] Biju Ramirezutzman Work Phone: [facility] Work Phone: 03-22-2021 13:37-0500 Body weight 97.52 kg Biju Moore [employer] Work Phone: [facility] Work Phone: 03-22-2021 13:37-0500 Diastolic blood pressure 76 mm[Hg] Biju [employer] Work Phone: [facility] Work Phone: 03-22-2021 13:37-0500 Heart rate 78 /min Biju Moore [employer] Work Phone: [facility] Work Phone: 03-22-2021 13:37-0500 SaO2% (BldA) [Mass fraction] 98 % Biju [employer] Work Phone: [facility] Work Phone: 03-22-2021 13:37-0500 Systolic blood pressure 119 mm[Hg] Biju [employer] Work Phone: [facility] Work Phone: 03-22-2021 13:37-0500 0 1 Biju Moore [employer] Work Phone: [facility] Work Phone: Comment on above: [facility] 03-07-2021 10:58-0500 Body height 177.8 cm Biju Moore [employer] Work Phone: [facility] Work Phone: 03-07-2021 10:58-0500 Body mass index (BMI) [Ratio] 30.3 kg/m2 Biju [employer] Work Phone: [facility] Work Phone: 03-07-2021 10:58-0500 Body surface area Derived from formula 2.14 m2 Biju Moore [employer] Work Phone: [facility] Work Phone: 03-07-2021 10:58-0500 Body temperature 98.24 [degF] Biju Teresa [employer] Work Phone: [facility] Work Phone: 03-07-2021 10:58-0500 Body weight 95.8 kg Biju Moore [employer] Work Phone: [facility] Work Phone: 03-07-2021 10:58-0500 Diastolic blood pressure 89 mm[Hg] Biju Teresa [employer] Work Phone: [facility] Work Phone: 03-07-2021 10:58-0500 Heart rate 91 /min Biju Teresa [employer] Work Phone: [facility] Work Phone: 03-07-2021 10:58-0500 Respiratory rate 16 /min Biju Teresa [employer] Work Phone: [facility] Work Phone: 03-07-2021 10:58-0500 SaO2% (BldA) [Mass fraction] 96 % Biju Moore [employer] Work Phone: [facility] Work Phone: 03-07-2021 10:58-0500 Systolic blood pressure 126 mm[Hg] Biju Teresa [employer] Work Phone: [facility] Work Phone: 03-07-2021 10:58-0500 0 1 Biju A [employer] Work Phone: [facility] Work Phone: Comment on above: [facility] 03-01-2021 15:10-0500 Body height 177.8 cm Biju Teresa RamirezYamil Work Phone: BM-Secuqfm-Xvtubdi Work Phone: 03-01-2021 15:10-0500 Body mass index (BMI) [Ratio] 30.31 kg/m2 Biju A [employer] Work Phone: QY-Nxmldvp-Sxnexap Work Phone: 03-01-2021 15:10-0500 Body surface area Derived from formula 2.14 m2 Biju Moore [employer] Work Phone: LD-Tlpqjve-Ufutiwe Work Phone: 03-01-2021 15:10-0500 Body weight 95.82 kg Biju Moore [employer] Work Phone: HA-Yccznyo-Fijlzqp Work Phone: 03-01-2021 15:10-0500 Diastolic blood pressure 67 mm[Hg] Biju Moore [employer] Work Phone: VY-Qtblmrz-Hfwbfrb Work Phone: 03-01-2021 15:10-0500 Heart rate 134 /min Biju Moore [employer] Work Phone: YY-Feopznc-Khcyyxx Work Phone: 03-01-2021 15:10-0500 Systolic blood pressure 124 mm[Hg] Biju Moore [employer] Work Phone: VY-Vqlkgua-Qhdvikv Work Phone: 02-27-2021 13:55-0500 Body height 177.8 cm Biju [employer] Work Phone: PQ-Xbqjnybabz-Qyag n 204 [place] Work Phone: 02-27-2021 13:55-0500 Body mass index (BMI) [Ratio] 30.43 kg/m2 Biju [employer] Work Phone: FJ-Usisioxrik-Vjqc n 204 [place] Work Phone: 02-27-2021 13:55-0500 Body surface area Derived from formula 2.14 m2 Biju [employer] Work Phone: HI-Eqgrnbnbuv-Ggec n 204 [place] Work Phone: 02-27-2021 13:55-0500 Body temperature 98 [degF] Biju A [employer] Work Phone: MT-Zaweycdomw-Oivu n 204 [place] Work Phone: 02-27-2021 13:55-0500 Body weight 96.19 kg Biju Moore [employer] Work Phone: BN-Ncxocdyeiu-Qfyo n 204 [place] Work Phone: 02-27-2021 13:55-0500 Diastolic blood pressure 78 mm[Hg] Biju Moore [employer] Work Phone: KY-Bnnobgsvus-Niyl n 204 DO Work Phone: 02-27-2021 13:55-0500 Heart rate 88 /min Biju Moore [employer] Work Phone: PQ-Henjfprffw-Njyc n 204 [place] Work Phone: 02-27-2021 13:55-0500 SaO2% (BldA) [Mass fraction] 97 % Biju Moore [employer] Work Phone: CT-Vzfmylptks-Rexq n 204 DO Work Phone: 02-27-2021 13:55-0500 Systolic blood pressure 126 mm[Hg] Biju Moore [employer] Work Phone: XX-Mnjshpplyt-Qjsf n 204 [place] Work Phone: 01-25-2021 15:46-0500 Body height 177.8 cm Biju Moore [employer] Work Phone: JL-Qwbuspn-Pecugnt d HC 232 DO Work Phone: 01-25-2021 15:46-0500 Body mass index (BMI) [Ratio] 25.4 kg/m2 Biju Moore [employer] Work Phone: RL-Usvxkxt-Xebtqwp d HC 232 DO Work Phone: 01-25-2021 15:46-0500 Body surface area Derived from formula 1.98 m2 Biju Moore [employer] Work Phone: PI-Puuvkpf-Qjkmpzm d HC 232 DO Work Phone: 01-25-2021 15:46-0500 Body weight 80.3 kg Biju Moore [employer] Work Phone: FN-Olkavwo-Gfekhnd d HC 232 DO Work Phone: 01-25-2021 15:46-0500 Diastolic blood pressure 80 mm[Hg] Biju Ramirezutzman Work Phone: NJ-Nadsdeo-Vxvninb d HC 232 DO Work Phone: 01-25-2021 15:46-0500 Heart rate 83 /min Biju Moore [employer] Work Phone: OK-Vrucdkn-Ipcfhll d HC 232 [place] Work Phone: 01-25-2021 15:46-0500 Systolic blood pressure 131 mm[Hg] Biju Moore [employer] Work Phone: UY-Pbstoqe-Lfuemen d HC 232 DO Work Phone: 12-07-2020 14:12-0400 Body height 177.8 cm Biju Moore [employer] Work Phone: LM-Zfiwpjjc-Lxssqf de 1500 Work Phone: 12-07-2020 14:12-0400 Body mass index (BMI) [Ratio] 28.02 kg/m2 Biju Moore [employer] Work Phone: CX-Ionzcbew-Akgqxh de 1500 Work Phone: 12-07-2020 14:12-0400 Body surface area Derived from formula 2.07 m2 Biju Moore [employer] Work Phone: VF-Wlxlejuu-Unlhoe de 1500 Work Phone: 12-07-2020 14:12-0400 Body temperature 97.9 [degF] Biju Moore [employer] Work Phone: OV-Mfhrgrny-Wbteja de 1500 Work Phone: 12-07-2020 14:12-0400 Body weight 88.59 kg Biju Moore [employer] Work Phone: EK-Sdaaknwi-Ebgmnr de 1500 Work Phone: 12-07-2020 14:12-0400 Diastolic blood pressure 73 mm[Hg] Biju Lobo Work Phone: XB-Onceefad-Ugcusb de 1500 Work Phone: 12-07-2020 14:12-0400 Systolic blood pressure 119 mm[Hg] Biju Lobo Work Phone: ZF-Ouqksymt-Hicgpa de 1500 Work Phone: Encounters Encounter Date Encounter Type Care Provider Facility Start: 10-29-2024 ambulatory Richard Munoz Facility:[facility] Start: 10-08-2024 End: 10-08-2024 Patient encounter procedure Brenda IRBY -[facility] Work Phone: Start: 10-08-2024 End: 10-08-[address] Biju Lobo DO Work Phone: -[facility] Start: 09-25-2024 End: 09-25-[address] Biju Lobo DO Work Phone: -Laboratory Specimen Start: 09-25-2024 End: 09-25-[address] Biju Lobo DO -Laboratory Specimen Work Phone: Start: 09-25-2024 End: 09-25-2024 ambulatory Biju Lobo Facility:[facility] Start: 09-18-2024 End: 10-18-[address] Richard Munoz DO -Pulmonary Rehab Work Phone: Start: 09-18-[address] Richard Munoz DO -Pulmonary Rehab Work Phone: Start: 09-18-2024 End: 10-18-[address] Biju Lobo DO Work Phone: -Pulmonary Rehab Start: 09-18-2024 Non-patient / Non-visit Dr. Danita Spaulding DO [facility] Work Phone: Start: 09-17-2024 Non-patient / Non-visit Dr. Danita Spaulding DO [facility] Work Phone: Start: 09-16-2024 ambulatory [facility] Facility: [facility] Start: 09-16-2024 Non-patient / Non-visit [facility]. [facility] Start: 09-16-2024 Non-patient / Non-visit Dr. Danita Spaulding DO -[facility] Work Phone: Start: 09-15-2024 ambulatory [facility] Facility: [facility] Start: 09-15-2024 End: 09-18-2024 Evaluation and management of inpatient Dr. Nikolai Freeman DO -[facility] Work Phone: Start: 09-14-2024 End: 09-17-[address] Biju Lobo DO Work Phone: -Pulmonary Rehab Start: 09-14-2024 End: 09-17-[address] Richard Munoz DO -Pulmonary Rehab Work Phone: Start: 09-14-[address] Richard Munoz DO -Pulmonary Rehab Work Phone: Start: 09-11-[address] Richard Munoz DO -Pulmonary Rehab Work Phone: Start: 09-07-2024 End: 09-07-[address] Biju Lobo DO Work Phone: -Pulmonary Rehab Start: 09-07-2024 End: 09-07-[address] Richard Munoz DO -Pulmonary Rehab Work Phone: Start: 09-07-2024 End: 09-07-2024 ambulatory Richard Munoz Facility:[facility] Start: 09-02-2024 End: 09-02-[address] Richard Munoz DO -[facility] Work Phone: Start: 09-02-2024 End: 09-02-[address] Biju Lobo DO Work Phone: -[facility] Start: 08-04-2024 End: 08-04-[address] Biju Lobo DO Work Phone: [facility] Work Phone: Start: 08-04-2024 End: 08-04-2024 Patient encounter procedure FRAME CARVER SPINDLE Tita Shawjesse -Cat Scan [facility] Work Phone: Start: 08-04-2024 End: 08-04-2024 ambulatory Tita Link Shamika Facility:[facility] Start: 07-23-2024 End: 07-23-[address] Christian Hernandez MD -[facility] Work Phone: Start: 07-23-2024 End: 07-23-[address] Biju Lobo DO Work Phone: [facility] Work Phone: Start: 07-15-2024 End: 07-15-[address] Biju Lobo DO Work Phone: [facility] Work Phone: Start: 07-15-2024 End: 07-15-2024 Patient encounter procedure FRAME CARVER SPINDLE Tita Benavidezkarenjesse -[facility] Work Phone: Start: 07-10-2024 End: 07-10-[address] Biju Lobo DO Work Phone: [facility] Work Phone: Start: 07-10-2024 End: 07-10-[address] Christian Hernandez MD -Radiology [facility] Work Phone: Start: 07-10-2024 End: 07-10-2024 ambulatory Biju Lobo Facility:[facility] Start: 07-03-2024 ambulatory Richard Munoz Facility:[facility] Start: 07-03-2024 Non-patient / Non-visit Dr. Richard montelongo DO -[facility] Start: 07-02-2024 End: 07-02-[address] Biju Lobo DO Work Phone: [facility] Work Phone: Start: 07-02-2024 End: 07-02-2024 Patient encounter procedure FRAME CARVER SPINDLE Tiat Wick -Pulmonary Services/Neurology Work Phone: Start: 07-02-2024 End: 07-02-2024 ambulatory Biju Lobo Facility:[facility] Start: 06-29-2024 Non-patient / Non-visit Dr. Richard montelongo DO -[facility] Start: 06-29-2024 End: 06-29-[address] Biju Lobo DO Work Phone: [facility] Work Phone: Start: 06-29-2024 End: 06-29-2024 Patient encounter procedure EPIFANIO Wick -Pulmonary Services/Neurology Work Phone: Start: 06-29-2024 End: 06-29-2024 ambulatory Tita Wick Facility:[facility] Start: 06-24-2024 End: 06-24-2024 Office outpatient visit 15 minutes Hemant Galvan MD Work Phone: [facility] Comment on above: Bilateral vocal fold paralysis (Primary Dx); Tracheostomy dependence Start: 06-24-2024 ambulatory BIJU Moore YAMIL [facility] Start: 06-22-2024 Non-patient / Non-visit Dr. Harrison wilkes MD -[facility] Start: 06-22-2024 End: 06-22-[address] Biju Lobo DO Work Phone: [facility] Work Phone: Start: 06-22-2024 End: 06-22-[address] Christian Hernandez MD -Cardiovascular Services Work Phone: Start: 06-22-2024 End: 06-22-2024 ambulatory Biju Lobo Facility:[facility] Start: 05-27-2024 End: 05-27-2024 ambulatory Biju Lobo Facility:[facility] Start: 05-27-2024 End: 05-27-2024 Patient encounter procedure FRAME CARVER SPINDLE Tita Wick -[facility] Work Phone: Start: 05-26-2024 End: 05-26-[address] Christian Hernandez MD -[facility] Work Phone: Start: 05-26-2024 End: 05-26-2024 ambulatory Biju RamirezYamil Facility:[facility] Start: 04-15-2024 End: 04-15-2024 Patient encounter procedure FRAME CARVER SPINDLE Tita Wick -[facility] Work Phone: Start: 04-15-2024 End: 04-15-2024 ambulatory Biju [facility] Facility:[facility] Start: 04-13-2024 End: 04-13-[address] Biju Lobo DO Work Phone: [facility] Work Phone: Start: 04-13-2024 End: 04-13-[address] Gilbert Hoang MD -Laboratory Work Phone: Start: 04-13-2024 End: 04-13-2024 [facility] Gilbert Hoang Facility:[facility] Start: 04-01-2024 End: 04-01-[address] Gilbert Hoang MD -[facility] Work Phone: Start: 04-01-2024 End: 04-01-2024 ambulatory Biju RamirezYamil Facility:[facility] Start: 03-25-2024 End: 03-25-2024 Office outpatient visit 15 minutes Hemant Galvan MD Work Phone: [facility] Comment on above: Bilateral vocal fold paralysis (Primary Dx); Tracheostomy dependence Start: 03-25-2024 ambulatory [facility] y:[facility] Start: 03-24-2024 End: 03-24-[address] Akbar Archuleta MD -Laboratory Work Phone: Start: 03-24-2024 End: 03-24-2024 ambulatory [facility] Facility:[facility] Start: 03-16-2024 End: 03-16-[address] Christian Hernandez MD -[facility] Work Phone: Start: 03-16-2024 End: 03-16-2024 ambulatory [facility] Facility:[facility] Start: 03-08-2024 End: 03-08-2024 Emergency department patient visit Dr. Ramos Randall MD -Emergency Department Work Phone: Start: 03-08-2024 End: 03-08-2024 ambulatory Facility:[facility] Start: 12-27-2023 End: 12-27-2023 Office outpatient visit 15 minutes Hemant Galvan MD Work Phone: [facility] Comment on above: Bilateral vocal fold paralysis (Primary Dx); Tracheostomy dependence Start: 12-27-2023 ambulatory [facility] y:[facility] Start: 12-24-2023 End: 12-24-2023 ambulatory [facility] Facility:[facility] Start: 12-10-2023 End: 12-10-2023 ambulatory [facility] Facility:[facility] Start: 11-26-2023 End: 11-26-2023 ambulatory [facility] Facility:[facility] Start: 11-12-2023 End: 11-12-2023 ambulatory [facility] Facility:[facility] Start: 10-30-2023 ambulatory [facility] Facility: [facility] Start: 10-30-2023 End: 11-02-2023 Evaluation and management of inpatient [facility] Facility:[facility] Start: 10-29-2023 ambulatory [facility] Facility: [facility] Start: 10-28-2023 End: 10-28-2023 Emergency department patient visit [facility] Facility:[facility] Start: 10-28-2023 End: 10-28-2023 ambulatory [facility] Facility:[facility] Start: 10-17-2023 End: 10-17-2023 Office outpatient visit 25 minutes Rj Trammell MD Work Phone: [facility] Comment on above: Benign prostatic hyp erplasia with urinary obstruction and other lower urinary tract symptoms; Nocturia; Erectile disorder; Urinary incontinence, unspecified type; Recurrent UTI Start: 10-02-2023 End: 10-02-2023 Office outpatient visit 25 minutes Hemant Galvan MD Work Phone: [facility] Comment on above: Bilateral vocal fold paralysis (Primary Dx); Tracheostomy dependence Start: 10-02-2023 ambulatory BIJU LOBO Facilit y:[facility] Start: 09-02-2023 End: 09-07-2023 Evaluation and management of inpatient Hemant Galvan MD Work Phone: [id number] Comment on above: Bilateral vocal fold paralysis Start: 08-29-2023 ambulatory BIJU LOBO Facilit y:[facility] Start: 08-29-2023 Encounter for other preprocedural examination BIJU LOBO Facility:[facility] Start: 07-10-2023 End: 07-10-2023 Office outpatient new 45 minutes Hemant Galvan MD Work Phone: [facility] Comment on above: Bilateral vocal fold paralysis (Primary Dx); Stridor; Dyspnea on exertion Start: 07-10-2023 ambulatory RAJINDER GRIJALVA Facility :[facility] Start: 06-25-[address] Biju Lobo Work Phone: [facility]-Laboratory Work Phone: Start: 06-21-2023 End: 06-21-[address] Biju Lobo Work Phone: [facility] Pulmonary Medicine Work Phone: Start: 06-18-2023 End: 06-18-[address] Biju Lobo Work Phone: [facility] Work Phone: Start: 06-18-2023 End: 06-18-[address] Biju Lobo Work Phone: [facility]-Laboratory Work Phone: Start: 06-18-2023 End: 06-18-[address] Biju Lobo Work Phone: [facility] Work Phone: Start: 05-29-2023 End: 05-29-2023 ambulatory [facility] Ambulatory Start: 05-29-2023 End: 05-29-2023 Office outpatient visit 25 minutes Rj Trammell MD Work Phone: [facility] Comment on above: Benign prostatic hyp erplasia with urinary obstruction and other lower urinary tract symptoms (Primary Dx); Nocturia; Erectile disorder Start: 05-17-2023 End: 05-17-[address] Biju Lobo Work Phone: [facility] Work Phone: Start: 05-17-2023 End: 05-17-[address] [facility] Work Phone: Start: 05-16-2023 End: 05-16-[address] Biju Lobo Work Phone: [facility] Work Phone: Start: 05-16-2023 End: 05-16-[address] [facility]iju [facility] Start: 05-16-2023 End: 05-16-[address] Biju Lobo Work Phone: [facility]-Pulmonary Medicine [facility] Work Phone: Start: 05-06-2023 End: 05-06-[address] Biju Lobo Work Phone: [facility] Work Phone: Start: 05-06-2023 End: 05-06-[address] [facility]iju [facility] Start: 05-03-2023 End: 05-03-2023 Emergency department patient visit Dr. Biju Lobo Work Phone: [facility]-Emergency Department Work Phone: Start: 03-28-2023 End: 03-28-[address] Biju Lobo Work Phone: [facility] Work Phone: Start: 03-28-2023 End: 03-28-[address] Biju Lobo Work Phone: [facility] Start: 03-26-2023 End: 03-26-2023 ambulatory [facility] Start: 03-19-2023 Non-patient / Non-visit Dr. Brigitte Lobo Work Phone: [facility] Inpatient Physicians Work Phone: Start: 03-18-2023 Non-patient / Non-visit Dr. Brigitte Lobo Work Phone: [facility] Start: 03-18-2023 Non-patient / Non-visit Dr. Brigitte Lobo Work Phone: [facility] In[facility] Phys[facility] Work Phone: Start: 03-17-2023 Non-patient / Non-visit Dr. Brigitte Lobo Work Phone: [facility] Inpatient Physicians Work Phone: Start: 03-16-2023 Non-patient / Non-visit Dr. Brigitte Lobo Work Phone: [facility] Start: 03-16-2023 End: 03-19-2023 Evaluation and management of inpatient Dr. Biju Lobo Work Phone: [facility]-Medical Surgical 3 Work Phone: Start: 03-12-2023 End: 03-12-[address] Biju Lobo Work Phone: [facility]-Pulmonary Medicine [facility] Work Phone: Start: 02-04-2023 Non-patient / Non-visit Dr. Brigitte Lobo Work Phone: [facility] Start: 02-04-2023 End: 02-04-[address] Biju Lobo Work Phone: [facility] Work Phone: Start: 02-04-2023 End: 02-04-[address] Biju Lobo Work Phone: [facility]-Cardiovascula r Services Work Phone: Start: 01-31-2023 End: 01-31-[address] Biju Lobo Work Phone: [facility] Neurology Work Phone: Start: 12-17-2022 End: 12-17-[address] Biju Lobo Work Phone: [facility]-Pulmonary Medicine [facility] Work Phone: Start: 12-14-2022 End: 12-14-[address] Biju Lobo Work Phone: [facility] Work Phone: Start: 12-14-2022 End: 12-14-[address] Biju Lobo Work Phone: [facility]-Laboratory, OP Pavilion Start: 11-16-2022 End: 11-16-[address] Biju Lobo Work Phone: [facility]-Pulmonary Medicine [facility] Work Phone: Start: 11-06-2022 AUDIT Biju henriquez Work Phone: SD-Ovkvvql-Gauloqp Work Phone: Start: 11-03-2022 AUDIT Biju henriquez Work Phone: RO-Jzwzxdvekv-Dlgit Work Phone: Start: 10-09-2022 End: 10-09-[address] Biju Lobo Work Phone: [facility] Work Phone: Start: 10-09-2022 End: 10-09-[address] Biju Lobo Work Phone: [facility] Work Phone: Start: 09-25-2022 Office outpatient vi sit 15 minutes Biju Lobo Work Phone: IF-Bpwqubrufm-Goeufq [address] [place] Work Phone: Start: 09-25-[address] Biju Lobo Facility:[id number] Start: 09-25-2022 End: 09-25-[address] Biju Lobo Work Phone: [facility] Work Phone: Start: 09-25-2022 End: 09-25-[address] Biju Lobo Work Phone: [facility] Work Phone: Start: 09-24-2022 End: 09-24-[address] Biju Lobo Work Phone: [facility] Neurology Work Phone: Start: 09-21-2022 AUDIT Biju henriquez Work Phone: PT-Bxgklpdknv-Zlnhsr [address] [place] Work Phone: Start: 09-13-2022 End: 09-13-[address] Biju Lobo Work Phone: [facility]-Sleep Lab Work Phone: Start: 09-11-2022 End: 09-11-[address] Biju Lobo Work Phone: [facility] [place] Work Phone: Start: 09-10-2022 AUDIT Biju henriquez Work Phone: IM-Jhuplwriev-Myzxp Work Phone: Start: 08-31-2022 Non-patient / Non-visit Dr. Brigitte Lobo Work Phone: [facility] Start: 08-30-2022 End: 08-30-[address] Biju Lobo Work Phone: [facility] Work Phone: Start: 08-30-2022 End: 08-30-[address] Biju Lobo Work Phone: [facility]-Pulmonary Services/Neurology Work Phone: Start: 08-24-2022 Non-patient / Non-visit Dr. Brigitte Lobo Work Phone: [facility] Start: 08-23-2022 End: 08-23-[address] Biju Lobo Work Phone: [facility] Work Phone: Start: 08-23-2022 End: 08-23-[address] Biju Lobo [facility] Work Phone: Start: 07-03-2022 End: 07-03-[address] Biju Lobo Work Phone: [facility] Work Phone: Start: 07-03-2022 End: 07-03-[address] Biju Lobo Work Phone: [facility]-Pulmonary Medicine [facility] Start: 06-28-2022 End: 06-28-[address] Biju Lobo Work Phone: [facility] Work Phone: Start: 06-28-2022 End: 06-28-[address] Biju Lobo Work Phone: [facility]-Sleep Lab Start: 06-19-2022 End: 06-19-[address] Biju Lobo Work Phone: [facility] Work Phone: Start: 06-19-2022 End: 06-19-[address] Biju Lobo Work Phone: [facility]-Laboratory Start: 06-07-2022 AUDIT Biju henriquez Work Phone: UG-Iozjdcolqo-Fsqwe Work Phone: Start: 06-04-2022 End: 06-04-[address] Biju Lobo Work Phone: [facility] Neurology Start: 05-21-2022 Non-patient / Non-visit Dr. Brigitte Lobo Work Phone: [facility]BN Start: 05-21-2022 End: 05-21-[address] Biju Lobo Work Phone: [facility] Work Phone: Start: 05-21-2022 End: 05-21-[address] Biju Lobo Work Phone: [facility]-Pulmonary Services/Neurology Start: 05-09-2022 AUDIT Biju henriquez Work Phone: YS-Voelvozswe-Zbqioa [address] [place] Work Phone: Start: 05-02-2022 End: 05-02-2022 ambulatory [facility] Work Phone: Start: 05-02-2022 End: 05-02-2022 Patient encounter procedure [facility]-Laboratory, Edith Charles [facility] Start: 04-11-2022 End: 04-11-2022 ambulatory [facility] Work Phone: Start: 04-11-2022 End: 04-11-2022 [facility] Start: 03-28-2022 FUV, Provider: Rj Trammell II, Status: Pen, Time: 1:15 PM Biju Teresa [employer] Work Phone: ZD-Jmuiqqixji-Lherfi [address] [place] Work Phone: Start: 03-28-2022 Office outpatient vi sit 25 minutes Biju A [employer] Work Phone: AO-Tjljapo-Hhimogz Work Phone: Start: 03-27-2022 Office outpatient vi sit 25 minutes Biju A [employer] Work Phone: DN-Tshysyhxbw-Dxftff [address] [place] Work Phone: Start: 03-09-2022 AUDIT Biju Moore [employer] Work Phone: XB-Qfhtvmb-Qzjscos Work Phone: Start: 02-22-2022 End: 02-22-2022 ambulatory [facility] Work Phone: Start: 02-22-2022 End: 02-22-2022 [facility] Start: 02-07-2022 Patient encounter procedure Biju Reesman Work Phone: [facility] [facility] Work Phone: Start: 01-25-2022 Chart Update Biju Moore Strich[employer]ma n Work Phone: [facility] [facility] Work Phone: Start: 01-24-2022 End: 01-24-2022 Emergency department patient visit [facility]-Emergency Department Start: 01-08-2022 Office outpatient vi sit 15 minutes Biju Lobo Work Phone: [facility] [facility] Work Phone: Start: 01-08-2022 Patient encounter procedure Biju Lobo Work Phone: [facility] [facility] Work Phone: Start: 12-25-2021 Chart Update Biju Reesma n Work Phone: YH-Utctnogvrv-Rqmahr [address] [place] Work Phone: Start: 12-14-2021 AUDIT Biju Ramirezrichardma n Work Phone: ZS-Wphjhfuhjr-Vifqb Work Phone: Start: 12-09-2021 End: 12-09-2021 Emergency department patient visit Dr. Biju Lobo Facility:[id number] Start: 12-08-2021 ADLTPSG, Provider: [facility] RM 2,[id number], Status: Pen, Time: 8:00 PM Biju Teresa RamirezYamil Work Phone: DR-Qwbltoafht-Ccbky Work Phone: Start: 12-08-2021 AUDIT Biju Reesma n Work Phone: XE-Olpfxigtax-Fclcma [address] [place] Work Phone: Start: 12-07-2021 Chart Update Biju Reesma n Work Phone: XM-Uhjbvaitgo-Sfxjm Work Phone: Start: 11-27-2021 Office outpatient vi sit 25 minutes Biju Teresa Yamil Work Phone: [facility] [address] [place] Work Phone: Start: 11-27-2021 Patient encounter procedure Biju Teresa Yamil Work Phone: [facility] [facility] Work Phone: Start: 11-22-2021 AUDIT Biju A Stutzma n Work Phone: TJ-Igecwoedl-Ekfzl 204 Work Phone: Start: 11-14-2021 Office outpatient ne w 45 minutes Biju A Yamil Work Phone: PP-Gladooieec-Ldjaaf [address] [place] Work Phone: Start: 11-01-2021 Patient encounter procedure Biju Lobo Work Phone: [facility]-Pulmonary Medicine-[place] [facility] Work Phone: Start: 10-26-2021 AUDIT Biju A Stutzma n Work Phone: LT-Gijnrkanwd-Llwoa Work Phone: Start: 10-11-2021 Current tobacco non- user cad cap copd pv dm Biju Lobo Work Phone: CB-Pqmudwbwzi-Rnhnbn [address] [place] Work Phone: Start: 09-18-2021 End: 09-18-2021 Patient encounter procedure [facility]-Cat Scan, [facility] Start: 09-14-2021 Chart Update Biju Moore [employer] n Work Phone: AW-Avvjcjrsaz-Querz Work Phone: Start: 09-11-2021 Office outpatient vi sit 25 minutes Biju Lobo Work Phone: IM-Plicjxjtfj-Knlesa [address] [place] Work Phone: Start: 09-05-2021 End: 09-05-2021 Patient encounter procedure [facility]-Ultrasound, [facility] Start: 06-23-2021 NPV, Provider: Jayne Godinez, Status: Pen, Time: 2:30 PM Biju Lobo Work Phone: [facility] [facility] Work Phone: Start: 06-21-2021 Office outpatient vi sit 15 minutes Biju Ramirezutzman Work Phone: [facility]-[place] [address] Work Phone: Start: 06-21-2021 Patient encounter procedure Biju Lobo Work Phone: [facility] [facility] Work Phone: Start: 06-07-2021 AUDIT Biju Moore Strich[employer] n Work Phone: OV-Fdcmrzee-Vsdckke Moore Work Phone: Start: 06-03-2021 End: 06-08-2021 Evaluation and management of inpatient Yvan Walker [facility] Lksd 60 Rm [id number] Start: 05-17-2021 AUDIT Biju Reesma n Work Phone: [facility] [facility] Work Phone: Start: 05-02-2021 Office outpatient vi sit 25 minutes Biju Lobo Work Phone: [facility] Work Phone: Start: 05-02-2021 Patient encounter procedure Biju Lobo Work Phone: CT-Unydckomvfvpqv-[place] Work Phone: Start: 04-19-2021 AUDIT Biju Reesma n Work Phone: UA-Gytrcudcpneaio-Nzca MOB02 [place] Work Phone: Start: 04-06-2021 AUDIT Biju Resema n Work Phone: KS-Lnjqkldagscctp-Aftd man Voice Work Phone: Start: 04-05-2021 Patient encounter procedure Biju Lobo Work Phone: WH-Owajuopcs-Qulajvn 4200 Work Phone: Start: 04-05-2021 EDEL, Provider : Kailyn Michel, Status: Pen, Time: 1:00 PM Biju A Yamil Work Phone: UG-Rrepdvixmd-Nxpqq 204 [place] Work Phone: Start: 04-03-2021 Office outpatient vi sit 25 minutes Biju A Yamil Work Phone: YY-Xrtbaomqwb-Doroi 204 [place] Work Phone: Start: 03-22-2021 NPVPRE, Provider: Macario Bond, Status: Pen, Time: 2:00 PM Biju A Yamil Work Phone: EH-Fxiuddusgepoiy-Vjqh man Voice Work Phone: Start: 03-22-2021 Office outpatient ne w 45 minutes Biju Moore Yamil Work Phone: [facility] [facility] Work Phone: Start: 03-22-2021 Patient encounter procedure Biju Lobo Work Phone: [facility] [facility] Work Phone: Start: 03-08-2021 Chart Update Biju Rose n Work Phone: DX-Forsbhqoou-Mdmjs 204 [place] Work Phone: Start: 03-07-2021 Office consultation new/estab patient 60 min Biju Ramirezutzman Work Phone: ED-Ewonkiuxygtgap-Shvf man Voice Work Phone: Start: 03-01-2021 FUV, Provider: Rj Trammell II, Status: Pen, Time: 3:00 PM Biju A Yamil Work Phone: LI-Oezmdiexjb-Uwvjt 204 [place] Work Phone: Start: 03-01-2021 Office outpatient ne w 45 minutes Biju A Yamil Work Phone: MD-Eeyalei-Bfkoupg Work Phone: Start: 01-10-2022 Office consultation new/estab patient 80 min Biju A Yamil Work Phone: WI-Tgkgpiibyy-Qktzb 204 [place] Work Phone: Start: 02-24-2021 Chart Update Biju Rose n Work Phone: DM-Wnywpnsz-Zphbxkxr [address] Work Phone: Start: 01-25-2021 Office outpatient ne w 45 minutes Biju Reesman Work Phone: TQ-Tmdzlof-Xshiamre HC 232 DO Work Phone: Start: 12-07-2020 Patient encounter procedure Biju Moore Yamil Work Phone: FU-Xbnlmntv-Ufhevyqu 1500 Work Phone: Procedures Date Procedure Procedure Detail Performing Clinician Start: 09-25-[address] Biju Lobo DO Work Phone: Start: 09-17-[address] Biju Lobo DO Work Phone: Start: 09-17-2024 Serum inorganic phos phate measurement Dr. Biju Lobo DO Work Phone: Start: 09-15-2024 CT of chest without contrast Dr. Biju Lobo DO Work Phone: Start: 09-15-2024 Urnls dip stick/tabl et reagent auto microscopy Dr. Biju Lobo DO Work Phone: Start: 09-15-2024 Plain X-ray of hip Dr. Biju Lobo DO Work Phone: Start: 09-15-2024 X-ray of chest, PA a nd lateral views Dr. Biju Lobo DO Work Phone: Start: 09-15-2024 CT of head without contrast Dr. Biju Lobo DO Work Phone: Start: 09-15-[address] Biju Lobo DO Work Phone: Start: 09-15-[address] Biju Lobo DO Work Phone: Start: 09-15-[address] Biju Lobo DO Work Phone: Start: 08-04-2024 CT of chest without contrast [...] Work Phone: Start: 03-08-2024 Gram stain microscopy Giacomo Lobo DO Work Phone: Start: 03-08-2024 Respiratory [...] Start: 05-17-2023 Investigation of transfusion reaction Dr. Bjiu Lobo Work Phone: Start: 05-17-2023 Respiratory microbia [...] with a 3.5 x 26 mm Resolute Rough And Ready stent; [06/06/2021, Dr. Marcelle Pro]: Severe 1-vessel [...] & FLU Ant igen (Rapid) Thyroidectomy Biju henriquez Work Phone: Plan of Treatment Date Care Activity Detail Author Start: 2033 RSV VACCINE (1 - 1-d ose 75+ series) RSV VACCINE (1 - 1-dose 75+ series) [facility] Start: 06-04-2026 Lipid panel Lipid Panel [facility] Start: 10-19-2024 Influenza vaccination INFLUENZ A VACCINE (Season Ended) [facility] Start: 10-14-2024 End: 10-14-2024 Patient encounter procedure 10/14/2024 1:00 PM EDT Office Visit [facility] [address] [place] [address] Hemant Galvan MD [address] [facility] [address] [place] [address] [facility] Start: 09-18-2024 Patient discharge [facility] Start: 09-17-2024 Following clinical pathway protocol [facility] Start: 09-16-2024 Verification routine [facility] Start: 09-16-2024 Application of intermittent pneumatic compression device [facility] Start: 09-16-2024 Following clinical pathway protocol [facility] Start: 09-16-2024 Assessment of risk o f venous thromboembolism [facility] Start: 09-16-2024 Insertion of cathete r into peripheral vein [facility] Start: 09-16-2024 Measuring intake and output [facility] Start: 09-16-2024 Providing care accor ding to standard [facility] Start: 09-16-2024 Provision of activit y privileges [facility] Start: 09-16-2024 Referral to occupati onal therapist [facility] Start: 09-16-2024 Referral to service [facility] Start: 09-16-2024 [facility] Start: 09-16-2024 Inhalation therapy procedure [facility] Start: 09-16-2024 Patient referral to dietitian [facility] Start: 09-15-2024 Hospital admission, emergency, from emergency room, medical nature [facility] Start: 09-15-2024 Verification routine [facility] Start: 09-15-2024 Admission procedure [facility] Start: 09-15-2024 End: 09-16-2024 [facility] Start: 09-15-2024 Bacteria identified in Blood by Culture Blood Culture [facility] Start: 09-15-2024 Bacteria identified in Urine by Culture Urine Culture [facility] Start: 09-15-2024 Blood culture Blood Culture [facility] Start: 09-15-2024 Airway suction technique [facility] Start: 09-06-2024 Potassium [Moles/vol ume] in Serum or Plasma POTASSIUM [facility] Start: 07-16-2024 Patient referral [facility] [facility] Work Phone: Start: 07-02-2024 Walking distance 6 minutes [facility] Start: 06-29-2024 Measurement of respiratory function [facility] Start: 06-24-2024 End: 06-24-2024 Patient encounter procedure 06/24/2024 11:20 AM EDT Office Visit [facility] [address] [place] [phone] Hemant Galvan MD [address] [facility] [address] [place] [address] [facility] Start: 06-19-2024 Patient referral [facility] Work Phone: Start: 06-03-2024 End: 06-03-2024 Patient encounter procedure 06/03/2024 1:00 PM EDT Office Visit [address] [place] [address] [place] [address] [place] [address] [facility] Start: 05-19-2024 End: 05-28-2024 Prostate specific Ag [Mass/volume] in Serum or Plasma Prostate Specific Antigen Lab Routine Nocturia Expected: 05/19/2024 (Approximate), Expires: 05/28/2024 [facility] Work Phone: Comment on above: Expected: 05/19/2024 (Approximate), Expires: 05/28/2024 Start: 03-25-2024 End: 03-25-2024 Patient encounter procedure 03/25/2024 11:20 AM EST Office Visit [facility] [address] [place] [address] Hemant Galvan MD [address] [facility] [address] [place] [address] [facility] Start: 03-08-2024 [facility] Start: 03-08-2024 [facility] Start: 12-27-2023 End: 12-27-2023 Patient encounter procedure 12/27/2023 11:00 AM EST Office Visit [facility] [address] [place] [address] Hemant Galvan MD [address] [phone] [facility] Start: 10-20-2023 COVID-19 VACCINE ( season) COVID-19 VACCINE () [facility] Start: 10-20-2023 Influenza vaccination INFLUENZA VACC INE (#1) [facility] Start: 10-08-2023 End: 10-08-2023 Patient encounter procedure 10/08/2023 3:00 PM EDT Office Visit [facility] [address] [facility] [address] [place] [address] Nevin Rogers MD PhD [address] [facility] 3, [address] [address] [facility] Start: 10-02-2023 End: 10-02-2023 Patient encounter procedure 10/02/2023 9:20 AM EDT Office Visit [facility] [address] [place] [address] Hemant Galvan MD [address] [phone] [facility] Start: 07-10-2023 End: 07-09-2024 CT Neck W contrast IV CT NECK WITH CONTRAST Imaging Routine Bilateral vocal fold paralysis Stridor Expected: 07/10/2023, Expires: 07/09/2024 [facility] Comment on above: Expected: 07/10/2023 , Expires: 07/09/2024 Start: 06-12-2023 End: 06-12-2023 Patient encounter procedure 06/12/2023 2:30 PM EDT Office Visit [facility] [address] [place] [phone] Nevin Rogers MD PhD [address] [facility] [address] [place] [address] [facility] Start: 05-16-2023 Patient referral [facility] Work Phone: Start: 05-14-2023 Abdominal aortic ane urysm screening [facility] Start: 05-14-2023 Pneumococcal vaccination PNEUM OCOCCAL VACCINE SERIES (1 of - PCV) [facility] Start: 05-03-2023 [facility] Start: 03-26-2023 FUV, Provider: Nevin Rogers, Status: Pen, Time: 3:30 PM FUV, Provider: Nevin Rogers, Status: Pen, Time: 3:30 PM CO-Buvufuuwhx-Qsbkdx 140 [place] Work Phone: Start: 03-19-2023 Patient discharge [facility] Start: 03-16-2023 End: 03-16-2023 [facility] Start: 03-16-2023 Following clinical pathway protocol [facility] Start: 03-16-2023 Ambulation without limitation [facility] Start: 03-16-2023 Assessment of risk o f venous thromboembolism [facility] Start: 03-16-2023 Fluid intake encouragement [facility] Start: 03-16-2023 Insertion of cathete r into peripheral vein [facility] Start: 03-16-2023 Measuring intake and output [facility] Start: 03-16-2023 Notification of physician [facility] Start: 03-16-2023 Providing care accor ding to standard [facility] Start: 03-16-2023 Referral to gastroenterology service [facility] Start: 03-16-2023 [facility] Start: 03-16-2023 Oxygen therapy [facility] Start: 03-16-2023 Streptococcus pneumo niae antigen assay [facility] Start: 03-16-2023 [facility] Start: 03-16-2023 Bacteria identified in Blood by Culture Blood Culture [facility] Start: 03-16-2023 Bacteria identified in Urine by Culture [facility] Start: 03-16-2023 Lactoferrin [Presenc e] in Stool by Immunoassay [facility] Start: 03-16-2023 Measurement of occul t blood in stool specimen using immunoassay [facility] Start: 03-16-2023 Hospital admission, emergency, from emergency room, medical nature [facility] Start: 03-16-2023 Verification routine [facility] Start: 03-16-2023 Admission procedure [facility] Start: 03-16-2023 End: 03-16-2023 Blood culture [facility] Start: 03-16-2023 Giardia lamblia anti gen assay [facility] Start: 03-16-2023 Protein measurement [facility] Start: 03-16-2023 Blood chemistry [facility] Start: 03-16-2023 Triacylglycerol lipa se measurement [facility] Start: 03-16-2023 [facility] Start: 03-16-2023 Enteric precautions [facility] Start: 03-16-2023 Inhalation therapy procedure [facility] Start: 12-18-2022 Creatinine measurement Creatinine Le salvador [facility] Start: 12-18-2022 Potassium measurement Potassium Leve l [facility] Start: 10-19-2022 COVID-19 Vaccine ( season) COVID-19 Vaccine () [facility] Start: 09-25-2022 FUV, Provider: Nevin Rogers, Status: Pen, Time: 3:45 PM FUV, Provider: Nevin Rogers, Status: Pen, Time: 3:45 PM NT-Hymcfknqja-Ecdcut 140 [place] Work Phone: Start: 09-11-2022 Thyroid stimulating hormone measurement TSH Level [facility] Start: 06-05-2022 Echocardiography Echocardiogram [facility] Start: 06-04-2022 Diabetes mellitus screening Diabetes Screening [facility] Start: 04-30-2022 FUVPRE, Provider: Leta Lu, Status: Pen, Time: 1:00 PM FUVPRE, Provider: Leta Lu, Status: Pen, Time: 1:00 PM [facility] [facility] Work Phone: Start: 03-28-2022 FUV, Provider: Rj Trammell II, Status: Pen, Time: 1:15 PM FUV, Provider: Rj Trammell II, Status: Pen, Time: 1:15 PM CR-Hgxnmgi-Pqnkkvo Work Phone: Start: 03-27-2022 FUV, Provider: Nevin [...] Nevin Rogers, Status: Pen, Time: 3:45 PM XL-Ljfmgccwfr-Mrmrgl 140 [place] Work Phone: Start: 01-24-2022 End: 01-24-2022 [facility] Start: 01-08-2022 FUVPRE, Provider: Leta Lu, Status: Pen, Time: 1:30 PM FUVPRE, Provider: Leta Lu, Status: Pen, Time: 1:30 PM [facility] Work Phone: Start: 01-08-2022 METHCHOL, Provider: [facility] FLR PFT RM1,PULM, Status: Pen, Time: 11:00 AM METHCHOL, Provider: [facility] FLR PFT RM1,PULM, Status: Pen, Time: 11:00 AM [facility] Work Phone: Start: 01-08-2022 SPIROMETRY, Provider : [facility] FLR PFT RM1,PULM, Status: Pen, Time: 10:30 AM SPIROMETRY, Provider: [facility] FLR PFT RM1,PULM, Status: Pen, Time: 10:30 AM [facility] Work Phone: Start: 12-08-2021 ADLTPSG, Provider: [facility] RM 2,[id number], Status: Pen, Time: 8:00 PM ADLTPSG, Provider: [facility] RM [facility],[id number], Status: Pen, Time: 8:00 PM EK-Dbfbnpchi-Vbbsd 204 Work Phone: Start: 11-27-2021 FUVPRE, Provider: Leta Lu, Status: Pen, Time: 1:30 PM FUVPRE, Provider: Leta Lu, Status: Pen, Time: 1:30 PM [facility] Work Phone: Start: 11-14-2021 NPV, Provider: Nevin Rogers, Status: Pen, Time: 3:00 PM NPV, Provider: Nevin Rogers, Status: Pen, Time: 3:00 PM XV-Qbapoalhmg-Lbtvgp 140 [place] Work Phone: Start: 11-01-2021 Patient encounter procedure [facility] Start: 10-11-2021 FUV, Provider: Jayne Godinez, Status: Pen, Time: 1:30 PM FUV, Provider: Jayne Godinez, Status: Pen, Time: 1:30 PM HX-Knvmgvaimp-Qzxtcz 140 [place] Work Phone: Start: 10-04-2021 Patient [...] Princess Mireille, Status: Pen, Time: 2:30 PM RE-Yijliwcbin-Ggihm 204 DO Work Phone: Start: 06-26-2021 Patient encounter procedure [facility] [place] Start: 06-23-2021 NPV, Provider: Jayne Godinez, Status: Pen, Time: 2:30 PM NPV, Provider: Jayne Godinez, Status: Pen, Time: 2:30 PM VT-Zcvxyqvr-Jwlfwpt Benítez Work Phone: Start: 06-23-2021 Patient encounter procedure [facility] Start: 06-21-2021 FUVPRE, Provider: Macario Bond, Status: Pen, Time: 1:30 PM FUVPRE, Provider: Macario Bond, Status: Pen, Time: 1:30 PM [facility] Work Phone: Start: 06-21-2021 Patient encounter procedure [facility] Start: 06-07-2021 Coronary artery disease Olmos ry artery disease Date: 07-Jun-2021 [facility] Start: 06-07-2021 End: 06-08-2022 Polyethylene Glycol 17 gram Oral Powder Daily PRN ; Powder for Reconstitution (MIRALAX)DOSE = 17 gram(s) Oral 2 Times a Day Start: 07-Jun-2021 End: 07-Jun-2022 Ordered: 07-Jun-2021 Leandra Pollack Intent [facility] Start: 06-05-2021 End: 06-06-2022 Albuterol 90 micrograms/ Inhalation MDI 2 inhalation Every 6 Hours PRN ; (PROVENTIL, VENTOLIN)DOSE = 2 inhalation Every 4 Hours via MDI, PRN Shortness of BreathNotes from Pharmacy: [facility] Start: 05-Jun-2021 End: 05-Jun-2022 Ordered: 05-Jun-2021 Gene Lemus [facility] Start: 06-04-2021 End: 06-04-2022 [facility] Start: 05-02-2021 FUV, Provider: Sudheer Mcfarlane, Status: Pen, Time: 9:45 AM FUV, Provider: Sudheer Mcfarlane, Status: Pen, Time: 9:45 AM [facility] Work Phone: Start: 05-02-2021 FUV, Provider: Sudheer Mcfarlane, Status: Pen, Time: 9:40 AM FUV, Provider: Sudheer Mcfarlane, Status: Pen, Time: 9:40 AM PT-Jsimzhpedfmvwz-Yp idman Voice Work Phone: Start: 04-05-2021 VIRFUVDENISE, Provider : Kailyn Michel, Status: Pen, Time: 1:00 PM VIRFUVHOME, Provider: Kailyn Michel, Status: Pen, Time: 1:00 PM ET-Znerfapotvjrni-Xw idman Voice Work Phone: Start: 04-03-2021 FUV, Provider: Princess Mireille, Status: Pen, Time: 2:30 PM FUV, Provider: Princess Mireille, Status: Pen, Time: 2:30 PM CR-Vfnoxupodd-Ebnxu 204 DO Work Phone: Start: 03-29-2021 CYSTOSCOPY, Provider : [facility] RM,[id number], Status: Pen, Time: 2:45 PM CYSTOSCOPY, Provider: [facility] PROCEDURE RM,[id number], Status: Pen, Time: 2:45 PM JP-Ahlvkpd-Untobbg Work Phone: Start: 03-22-2021 NPVPRE, Provider: Macario Bond, Status: Pen, Time: 2:00 PM NPVPRE, Provider: Macario Bond, Status: Pen, Time: 2:00 PM [facility] Work Phone: Start: 03-22-2021 NPV, Provider: Quita Zarate, Status: Pen, Time: 9:00 AM NPV, Provider: Quita Zarate, Status: Pen, Time: 9:00 AM YS-Kweveeat-Lczefdvu 1500 Work Phone: Start: 03-07-2021 NPV, Provider: Sudheer Mcfarlane, Status: Pen, Time: 11:00 AM NPV, Provider: Sudheer Mcfarlane, Status: Pen, Time: 11:00 AM SL-Wjzeglzcgb-Ecvli 204 DO Work Phone: Start: 03-01-2021 FUV, Provider: Rj Trammell II, Status: Pen, Time: 3:00 PM FUV, Provider: Rj Trammell II, Status: Pen, Time: 3:00 PM VH-Uogerklg-Dllkkkqd 1500 Work Phone: Start: 02-27-2021 NPV, Provider: Princess Mireille, Status: Pen, Time: 2:00 PM NPV, Provider: Princess Mireille, Status: Pen, Time: 2:00 PM FU-Seurvwot-Nqidwukn 1500 Work Phone: Start: 02-22-2021 FUV, Provider: Rj Trammell II, Status: Pen, Time: 3:45 PM FUV, Provider: Rj Trammell II, Status: Pen, Time: 3:45 PM RX-Bhlsywv-Iqyakddw HC 232 DO Work Phone: Start: 2018 RSV patient s and/or patients aged 60+ years (1 - 1-dose 60+ series) RSV patients and/or patients aged 60+ years (1 - 1-dose 60+ series) [facility] Start: 2018 RSV VACCINE (1 - 1-d ose 60+ series) RSV VACCINE (1 - 1-dose 60+ series) [facility] Start: 2013 Prostate specific an tigen measurement PROSTATE CANCER SCREENING DISCUSSION [facility] Start: 2008 Prostate specific an tigen measurement PROSTATE CANCER SCREENING DISCUSSION [facility] Start: 2008 Zoster vaccine hzv l david for subcutaneous use ZOSTER (SHINGLES) VACCINE (1 of 2) [facility] Start: 2008 Zoster Vaccines (1 of 2) Zoste r Vaccines (1 of 2) [facility] Start: 05-14-2003 Screening for malign ant neoplasm of colon COLORECTAL CANCER SCREENING DISCUSSION [facility] Start: 1998 Lipid panel LIPID SCREENING [facility] Start: 1980 DTaP/Tdap/Td Vaccine s (1 - Tdap) DTaP/Tdap/Td Vaccines (1 - Tdap) [facility] Start: 1977 Third diphtheria, te tanus and acellular pertussis (DTaP) vaccination TDAP (ADULT) [facility] Start: 1976 Hepatitis C screening [facility] Start: 1964 Pneumococcal Vaccine : 65+ Years (1 of 2 - PCV) Pneumococcal Vaccine: 65+ Years (1 of 2 - PCV) [facility] Start: 05-14-1959 MMR Vaccines (1 of 1 - Standard series) MMR Vaccines (1 of 1 - Standard series) [facility] Start: 1958 Annual wellness visit Medicare Initial Physical (IPPE) [facility] Start: 1958 Hepatitis C screening HEPATITI S C VIRUS SCREENING [facility] Start: 1958 Screening for malign ant neoplasm of colon [facility] Start: 1958 Tetanus vaccination TETANUS [facility] Start: 1958 Thyroid stimulating hormone measurement TSH [facility] Bilirubin measuremen t, urine [facility] Clostridioides diffi cile DNA [Presence] in Unspecified specimen by YOLY with probe detection [facility] CT Chest WO contrast [facility] CT Chest WO contrast [facility] CTA Head vessels and Neck vessels W contrast IV [facility] Exercise tolerance test [facility] Exercise tolerance test [facility] Gastrointestinal pathogens panel - Stool by YOLY with probe detection [facility] Hemoglobin [Presence ] in Urine [facility] Lactoferrin [Presenc e] in Stool by Immunoassay [facility] Laryngoscopy flx/rgd telescopic w/stroboscopy CO LARYNGOSCOPY FLX/RGD TELESCOPIC W/STROBOSCOPY CO Charge Routine Bilateral vocal fold paralysis Stridor Dyspnea on exertion Ordered: 07/10/2023 [facility] Comment on above: Ordered: 07/10/2023 Legionella pneumophi la Ag [Presence] in Urine [facility] Lipid 1996 panel - S joceline or Plasma [facility] Magnesium [Mass/volu me] in Serum or Plasma [facility] Measurement of keton es in urine using dipstick [facility] Measurement of respiratory function [facility] Measurement of respiratory function [facility] Microscopic urinalysis [facility] MR Brain WO and W contrast IV [facility] NM Heart Views W str ess and W radionuclide IV [facility] Organism count, microscopic method [facility] Ova and parasites identified in Unspecified specimen by Light microscopy [facility] Ova and parasites identified in Unspecified specimen by Light microscopy [facility] Patient Education [facility] Work Phone: Patient referral [facility] Work Phone: pH of Urine [facility] Polysomnography [facility] Serum inorganic phos phate measurement [facility] Specific gravity of Urine [facility] Urine culture [facility] Urine dipstick for glucose [facility] Urine dipstick for leukocyte esterase [facility] Urine dipstick for nitrite [facility] Urine dipstick for protein [facility] Urine examination [facility] Urine microscopy: epithelial cells [facility] Urine microscopy: re d cells [facility] Urobilinogen [Presen ce] in Urine [facility] Carotid arteries [facility] US Carotid arteries [facility] US Heart [facility] Videoswallow [facility] White blood cell count [facility] Immunizations Immunization Date Immunization Notes Care Provider Fa joie 06-17-2023 Pneumococcal Vaccine PCV20 (Prevnar 20) Dr. Biju Lobo DO Work Phone: [facility] 12-17-2022 influenza, injectabl e, quadrivalent, preservative free Dr. Biju Lobo Work Phone: [facility] 12-17-2022 influenza virus vacc ine, unspecified formulation Hemant Galvan MD Work Phone: [facility] 12-22-2020 Moderna COVID-19 Vac cine 100 MCG/0.5ML Intramuscular Suspension Biju Reesman Work Phone: [facility] Work Phone: 04-07-2020 Moderna COVID-19 Vac cine 100 MCG/0.5ML Intramuscular Suspension Biju Lobo Work Phone: [facility] Work Phone: 03-10-2020 Moderna COVID-19 Vac cine 100 MCG/0.5ML Intramuscular Suspension Biju Lobo Work Phone: [facility] Work Phone: 12-21-2018 Influenza, injectabl e, Madin Alma Canine Kidney, quadrivalent with preservative Biju Teresa ReesYamil Work Phone: [facility] Work Phone: 12-31-2012 influenza, seasonal, injectable Biju Lobo Work Phone: -Pulmonary Medicine-[facility] Work Phone: Payers Date Payer Category Payer Unknown 0 2023 Self-pay [id number] 2023 Managed Care (unspecified) MEDICARE SUPPLEMENT Member Subscriber Plan / Payer (Effective 2023-Present) Name: Freddie Cole Relation to Subscriber: Self Name: Freddie Cole Payer ID: Not on file Group ID: [id number] Type: Not on file Address: [facility] [address] [place] [id number] 2023 Medicare [id number] 2023 Medicare [id number]. [id number] 2023 Unknown 2023 Unknown [id number] 2021 Unknown [id number] 1960 Unknown [id number] 2.0.1.617177.3.579.2. 1069 1958 Unknown [id number] 2.840.1.613813.3.579.2. 356 1958 Unknown [id number] 2.840.1.142667.3.579.2. 1245 1958 Unknown [id number] 2.840.1.078743.3.579.2. 1244 1958 Unknown [id number] 2.840.1.249727.3.579.2. 594 1958 Unknown [id number] 2.16840.1.723975.3.579.2. 594 1958 Unknown [id number] 2.16840.1.177105.3.579.2. 594 1958 Unknown [id number] 2.16840.1.949523.3.579.2. 594 1958 Unknown [id number] 2.16840.1.047809.3.579.2. 594 1958 Unknown [id number] 2.16.840.1.355686.3.579.2. 594 1958 Unknown [id number] 2.16.840.1.433617.3.579.2. 594 1958 Unknown [id number] 2.16.840.1.995385.3.579.2. 594 Unknown [id number] Unknown [facility] PACKAGE PLAN [id number] Unknown [id number] 2.16.840.1.886349.3.579.2. 462 Unknown [id number] 2.16.840.1.887583.3.579.2. 462 Unknown [id number] 2.16.840.1.901182.3.579.2. 462 Unknown [id number] 2.16840.1.439149.3.579.2. 462 Unknown [id number] 2.16.840.1.574404.3.579.2. 462 Unknown [id number] 2.16.840.1.635305.3.579.2. 462 Unknown [id number] 2.16.840.1.858077.3.579.2. 462 Unknown [id number] 2.16.840.1.104471.3.579.2. 462 Unknown [id number] 2.16.840.1.848642.3.579.2. 462 Unknown [id number] 2.16.840.1.376782.3.579.2. 462 Unknown [id number] 2.16.840.1.842721.3.579.2. 462 Unknown [id number] 2.16.840.1.665111.3.579.2. 462 Unknown [id number] 2.16.840.1.275026.3.579.2. 462 Unknown [id number] 2.840.1.380401.3.579.2. 462 Unknown [id number] 2.840.1.859319.3.579.2. 462 Unknown [id number] 2.840.1.758758.3.579.2. 462 Unknown [id number] 2.840.1.543683.3.579.2. 462 Unknown [id number] 2.840.1.658608.3.579.2. 462 Unknown [id number] 2.840.1.089921.3.579.2. 462 Unknown [id number] 2.840.1.926999.3.579.2. 462 Unknown [id number] 2.840.1.379979.3.579.2. 462 Unknown [id number] .840.1.506003.3.579.2. 462 Unknown [id number] .840.1.471284.3.579.2. 462 Unknown [id number] .840.1.753563.3.579.2. 462 Unknown [id number] .840.1.057561.3.579.2. 462 Unknown [id number] .840.1.574777.3.579.2. 462 Unknown [id number] .840.1.770908.3.579.2. 462 Unknown [id number] .840.1.694477.3.579.2. 462 Unknown [id number] .840.1.809046.3.579.2. 462 Unknown [id number] 2.840.1.062746.3.579.2. 462 Unknown [id number] 2.840.1.390805.3.579.2. 462 Unknown [id number] 2.16.840.1.403643.3.579.2. 462 Unknown [id number] 2.16.840.1.743612.3.579.2. 462 Unknown [id number] 2.16.840.1.419948.3.579.2. 462 Unknown [id number] 2.16.840.1.953097.3.579.2. 462 Unknown [id number] 2.16.840.1.488115.3.579.2. 462 Unknown [id number] 2.16.840.1.480753.3.579.2. 462 Unknown [id number] 2.16.840.1.421836.3.579.2. 462 Unknown [id number] 2.16.840.1.251624.3.579.2. 462 Unknown [id number] 2.16.840.1.491119.3.579.2. 462 Unknown [id number] 2.16.840.1.045562.3.579.2. 462 Unknown [id number] 2.16.840.1.818882.3.579.2. 462 Unknown [id number] 2.16.840.1.673304.3.579.2. 462 Social History Date Type Detail Facility Start: 05-29-2023 End: 06-24-2024 Current every day smoker Current every day smoker UY-Nmmgsbx-Saensvkw [facility] 232 DO Work Phone: Start: 01-13-2021 End: 06-18-2023 Tobacco smoking consumption unknown [facility] Start: 1960 Sex Assigned At Male [facility] Start: 03-26-2023 End: 09-16-2024 Tobacco smoking status NHIS Ex-smoker [facility] End: 02-18-2021 History of tobacco use Current smoker [facility] Work Phone: End: 02-18-2021 History of tobacco use Cigarette Smoker [facility] Work Phone: Start: 03-26-2023 End: 07-10-2023 Tobacco use and exposure Smokeless tobacco non-user [facility] Work Phone: Start: 05-29-2023 End: 06-24-2024 Tobacco use panel [facility] Work Phone: Start: 1960 [facility] Start: 05-19-2023 End: 05-29-2023 Exposure to SARS-CoV-2 (event) Not sure [facility] Start: 07-10-2023 End: 06-24-2024 Alcoholic beverage intake Ex-drinker (finding) [facility] Adolescent depressio n screening assessment 0 [facility] Has the electric, gas, oil, or water company threatened to shut off services in your home in past 12Mo No [facility] (I/We) worried whether (my/our) food would run out before (I/we) got money to buy more. Never true [facility] Start: 03-19-2024 Gender identity Identifies as male gender (finding) [facility] Start: 03-19-2024 Sexual orientation Heterosexual (priya gaxiola) [facility] Start: 06-28-2023 End: 04-24-2024 Sex Male (finding) [facility] NEGATED: Highlighted row Denies Current every day smoker Denies Current every day smoker [facility] [facility] Work Phone: Goals Date Patient Goal Desired Activity /State Functional Status Date Assessment Result Facility 09-18-2024 Functional status [facility]ulates [facility] Work Phone: 09-17-2024 Functional status [facility] Work Phone: 09-02-2023 Are you deaf, or do you have serious difficulty hearing No 09/02/2023 6:00 PM Reyna Tolliver, RN No [facility] 09-02-2023 Are you blind, or do you have serious difficulty seeing, even when wearing glasses No 09/02/2023 6:00 PM Reyna Tolliver, RN No [facility] 09-02-2023 Do you have serious difficulty walking or climbing stairs Yes 09/02/2023 6:00 PM EDT Reyna Ta, RN Yes [facility] 09-02-2023 Do you have difficul ty dressing or bathing No 09/02/2023 6:00 PM Reyna Tolliver, RN No [facility] 09-02-2023 Because of a physica l, mental, or emotional condition, do you have difficulty doing errands alone such as visiting a physician's office or shopping No 09/02/2023 6:00 PM Reyna Tolliver, RN No [facility] 03-19-2023 Functional status [facility] Work Phone: Functional observable [facility] Mental Status Date Assessment Result Facility 09-18-2024 Cognitive function Voice/Name [facility] Work Phone: 09-17-2024 Cognitive function Voice/Name [facility] Work Phone: 09-15-2024 Cognitive function Level Of Cons ciousness Awake;Alert;Appropriate [facility] Work Phone: 09-02-2023 Because of a physica l, mental, or emotional condition, do you have serious difficulty concentrating, remembering, or making decisions Yes 09/02/2023 6:00 PM EDReyna Florez, RN Yes [facility] 03-19-2023 Cognitive function Voice/Name [facility] Work Phone: 06-05-2021 Cognitive functi ons :37 [facility] Clinical Notes 02-27-2019 to 09-18-2024 Note Date & Type Note Facility 09-18-2024 Hospital Discharg e instructions Additional Instructions Date of Discharge: 09/18/24 [facility] Work Phone: 09-18-2024 Discharge summary [facility] 09-18-2024 Discharge summary Note Date/Time September 18, 2024 12:46pm [facility] Medical Records Department [address] [place] [address] Discharge Summary 09/18/24 0815 MR#: [id number] Acct: [id number] Name: FREDDIE COLE Rep #:[id number] : 1960 64 From: Danita Spaulding DO PCP: Dr. Biju Lobo DO Status:ADM IN Location: [place] [id number] Providers Date of Admission: 09/15/24 Date of Discharge: 09/18/24 Primary Care Physician: Dr. Biju Lobo DO Reason For Visit: UTI, MICHAEL, MILDLY ELEVATED TROPONIN AND GENERALIZED Diagnosis Discharge Diagnosis (1) Generalized weakness: Status: Acute Code(s): R53.1 - Weakness (2) Leukocytosis: Status: Acute Code(s): D72.829 - Elevated white blood cell count, unspecified (3) Elevated troponin: Status: Acute Code(s): R79.89 - Other specified abnormal findings of blood chemistry (4) Complicated UTI (urinary tract infection): Status: Acute Code(s): N39.0 - Urinary tract infection, site not specified Medications at Discharge Home Medications levothyroxine 150 mcg tablet (Synthroid) [...] 100 mg capsule 100 mg PO MOWEFR [id number]/24 furosemide 40 mg tablet (Lasix) 20 mg [...] PRN SOB &/OR WHEEZING #360 mL 05/20/24 prednisone 10 mg tablet 10 mg PO QDAY #30 tabs 07/15/24 atropine 1 % eye drops See Rx Instructions buccal DAILY secretions #15 mL 07/23/24 carbidopa 25 mg-levodopa 100 mg tablet 2 tab PO TID parkinsons #540 tabs 07/23/24 fludrocortisone 0.1 mg tablet 0.2 mg (2 x 0.1 mg) PO QAM #180 tabs 07/23/24 Motorized scooter #1 ea 09/10/24 omeprazole 40 mg capsule,delayed release 40 mg PO DAILY 09/15/24 ropinirole 1 mg tablet 0.5 mg PO TID 09/15/24 cefdinir 300 mg capsule 300 mg PO BID #14 caps 09/18/24 Hospital Course Procedures 2-D Echocardiogram, EKG and - (CT brain/chest x-ray/hip and pelvic x-ray/chest CT) Summary of Care Provided Minutes Spent on Discharge: 39 Hospital Course: Mr. Cole is a 64-year-old white male with a chronic tracheostomy to and history of Parkinson's disease with urinary retention resulting in intermittent who presented to the emergency department [facility] on 09/15/2024 with chief complaint of generalized weakness and fatigue. Patient does have a history of urinary tract infections after self-catheterization. Patient reported that he began having symptoms about a week prior to presentation with a gradual onset of fatigue and generalized weakness. He has been in cardiac rehab and had been doing well but left feeling more tired and fatigued as of recently. He reported on the day of presentation he was so tiredhe could hardly get out of bed. He also complained of some left hip pain. He has been self cathing up to 4 times a day at home and a Mayes catheter was replaced prior to presentation. He was on suppressive Bactrim and Flomax at baseline. Vital signs on presentation showed temperature of 99.7, heart rate 95, respiratory 16, blood pressure 132/84 and pulse ox was 94% on room air. Patient does have tracheostomy tube. CBC showed leukocytosis with a white countof 14.5 and a left shift. He has chronic thrombocytopenia which was stable. Electrolytes are normal but his BUN and creatinine was slightly elevated at 22 and 1.39. His UA was strongly suggestive of infection. His initial troponin was 43. EKG did not show any changes concerning for acute ischemia patient did not have any chest pain. He did indicate he was having some intermittent wheezing which was new recently. CT of the brain was unremarkable for any acutefindings. Chest x-ray was unremarkable for any acute findings. Hip and pelvic x-rays were unremarkable for acute findings but did demonstrate moderate to advanced bilateral hip osteoarthritis left greater than right. CT of the chest showed no focal consolidations, bibasilar atelectasis and minimal bibasilar bronchiectasis. Given his markedly abnormal UA and elevated white count with marked fatigue and increased risk for falls and debility he was admitted to the hospital placed on IV antibiotics with ceftriaxone. His white count normalized within 24 hours and within 72 hours of admission he was feeling pretty much backto baseline. He felt his fatigue and generalized weakness had resolved and he was able to walk through the halls without significant difficulty. I did have nursing review self cathing with him as this is the second urinary tract infection he has had recently due to self cathing and this is a new procedure for him. Culture showed a Klebsiella pneumonia that was fairly pansensitive. Interestingly, he stated he is wheezing, which was reflected on his clinical exam, had markedly improved so I do suspect he may have had a bronchitis as wellas his secretions markedly decreased and his wheezing resolved. I will go aheadand complete treatment for his urinary tract infection with Omnicef which also should cover his pulmonary issues. An echocardiogram was obtained due to his shortness of breath and showed an EF of 55% with stage I diastolic dysfunction and was otherwise unremarkable. Given the normal echocardiogram I do feel that his elevated troponin was likely related to subendocardial ischemia related to his infection and no further workup was pursued while he was hospitalized. He did not have any concomitant chest pain. He was sent home to complete a 10-day course for complicated urinary tract infection. No other medication changes were made in his hospital course. I do recommend he follow-up with his primary care physician within 1 week after discharge. 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 History of angioedema CAD Essential hypertension Hyperlipidemia Chronic diastolic heart failure History of DVT Hypothyroidism COPD Remote history of tobacco abuse Obesity Physical Exam Const alert, oriented x3, no apparent distress, no limitations and well nourished; Negative for average body habitus or healthy appearing Constitutional Narrative: Obese, upper middle-aged, white male sitting up in a chair at the bedside, appears older than stated age, appears comfortable and nontoxic, watching television, very cooperative at bedside General Appearance: cooperative, comfortable, well kempt and well developed Exam Limitations: no limitations Nutritional Appearance: obese HEENT normocephalic, head/scalp atraumatic, hearing grossly normal bilaterally and moist oral mucous membranes HEENT Narrative: No thrush, Mallampati 4 Eyes EOMs intact bilaterally Eyes Narrative: No scleral icterus Neck supple Neck Narrative: Neck is short and thick, tracheostomy tube in place, no significant secretions noted at this time Resp normal respiratory effort, no retractions, no use of accessory muscles and clearto auscultation bilaterally Resp Narrative: Lungs are clear Auscultation: Negative for crackles, rhonchi or wheezes Cardio regular rate, regular rhythm, S1 normal heart sound, S2 normal heart sound, no murmurs, no rub, no gallops and no clicks GI normal to inspection, nondistended, normoactive bowel sounds, soft to palpation and non-tender GI Narrative: Large protuberant abdomen Extremity Extremity Narrative: Trace bilateral lower extremity edema that appears to be chronic, no cyanosis orclubbing Skin no jaundice, no petechiae and no mottling Neuro oriented x3, moves all extremities and no focal motor deficits Neuro Narrative: Resting tremor noted, mild bradykinesia, response times are appropriate but speech is slightly slowed Speech: Negative for speech normal Psych affect normal Psych Narrative: Very pleasant, interacts appropriately Weight / BMI Weight Weight: 98.1 kg Body Mass Index (BMI) 31.9 ABG / Lab / Microbiology Data 09/17/24 05:52 09/17/24 05:52 Microbiology: Microbiology 09/15/24 18:10 Blood Culture (Wb) - Left Hand Blood Culture - Preliminary No growth in 48 hours. 09/15/24 17:41 Blood Culture (Wb) - Anticubital Left Blood Culture - Preliminary No growth in 48 hours. 09/15/24 19:00 Urine Catheter - Mayes Urine Culture - Final Klebsiella pneumoniae sp pneum D/C Instructions Discharge Activity: Return to Normal Activity DC O2, CPAP, BIPAP Needs Home O2 Discharge instructions: No Meaningful Use Info Meaningful Use Meaningful Use Diagnoses (Choose all that apply): None applicable Discharge Plan Admission Admit Date/Time: 09/15/24 23:30 Primary Reason for Your Visit: Generalized weakness and fatigue I am eating lunch Attending Provider: Danita Spaulding Primary Care Provider: Biju Lobo Consulting Providers: Nikolai Freeman Instructions Patient Instructions: Self-Catheterization for Men, Self Catheterization, Men Dc, Catheter Insert Man Steps Discharge Orders/Prescriptions Prescriptions: New cefdinir 300 mg capsule 300 mg PO BID Qty: 14 0RF Continued tamsulosin 0.4 mg capsule 0.4 mg PO DAILY budesonide 1 mg/2 mL suspension for nebulization 1 mg inhalation BID Qty: 120 11RF formoterol fumarate [Perforomist] 20 mcg/2 mL solution for nebulization 2 ml inhalation BID Qty: 120 3RF Yupelri 175 mcg/3 mL solution for nebulization 175 mcg inhalation QDAY Qty: 90 3RF (DME) nebulizer kits See Rx Instructions .ROUTE .MEDSUPPLY Qty: 1 11RF Rx Instructions: As directed carbidopa-levodopa 25-100 mg tablet 2 tab PO TID Qty: 540 2RF fludrocortisone 0.1 mg tablet 0.2 mg PO QAM Qty: 180 1RF atropine 1 % drops See Rx Instructions buccal DAILY Qty: 15 6RF Rx Instructions: Take 1 to 2 drops buccally daily (DME) Motorized scooter See Rx Instructions .Route .MEDSUPPLY Qty: 1 0RF Rx Instructions: As directed prednisone 10 mg tablet 10 mg PO QDAY Qty: 30 0RF Rx Instructions: take 4 tabs for three days, then 3 tabs for three days, then 2 tabs for three days, then 1 tab for 3 days levothyroxine [Synthroid] 150 mcg tablet 150 mcg PO DAILY aspirin [Luis Alberto Chewable Aspirin] 81 mg tablet,chewable 81 mg PO DAILY Patient Comments: 1 tablet by mouth once a day furosemide [Lasix] 40 mg tablet 20 mg PO 1200 PRN (Reason: Leg swelling) 30 Days Qty: 0 0RF Rx Instructions: Hold for SBP less than 100 mmHg nitrofurantoin monohyd/m-cryst 100 mg capsule 100 mg PO MOWEFR ropinirole 1 mg tablet 0.5 mg PO TID omeprazole 40 mg capsule,delayed release(DR/EC) 40 mg PO DAILY (DME) Handicap placard See Rx Instructions .Route .MEDSUPPLY Qty: 1 0RF Rx Instructions: Expiration: 10/01/2025 clopidogrel 75 mg tablet 75 mg PO DAILY Qty: 90 3RF potassium chloride 20 mEq tablet extended release 20 meq PO DAILY Qty: 90 3RF rosuvastatin 5 mg tablet 5 mg PO DAILY Qty: 90 3RF ipratropium-albuterol 0.5 mg-3 mg(2.5 mg base)/3 mL solution for nebulization 3 ml inhalation Q4H PRN PRN (Reason: SOB &/OR WHEEZING) Qty: 360 11RF Referrals / Follow Up: Biju Lobo DO [Primary Care Provider] - Within 1 Week Disposition Disposition (needs filled in before D/C Order can be placed): Home, Self Care Charges/Coding Visit Charges Inpatient E&M: 31494 Disch Hosp >30min 09/18/24 1246 <Electronically signed by Danita Spaulding DO> Cosigner Signature (if applicable): CC: Dr. Danita Spaulding DO; Dr. Biju Lobo DO~ Signed [facility] Work Phone: 1(616) 985-712408-01-2025 [facility]07-31-2025 Progress note Author Danita Spaulding [facility] Note Date/Time September 17, 2024 5:[address] [facility] Medical Records Department [address] [place] [address] Progress Note - Hospitalist 09/17/24 3696 MR#: [id number] Acct: [id number] Name: FREDDIE COLE Rep #:[id number] : 1960 64 From: Danita Spaulding DO PCP: Dr. Biju Lobo, DO Status:ADM IN Location: [place] [address] Reason for Visit Chief Complaint: Generalized Weakness and Fatigue. Subjective Subjective Patient states he is overall feeling much better today. Should be able to switch to oral antibiotics at discharge. States he is still peeing a little bitweak and feels like he needs a little bit more time before you go as he is fairly independent and his can help him and he still having trouble gettingaround a bit but certainly much better since he came in. Objective Data Objective Data Vital Signs: Vital Signs Temp Pulse Resp BP Pulse Ox O2 Del Method O2 Flow Rate 98.8 F 82 18 107/76 94 Room Air 6 09/17/24 15:28 09/17/24 15:28 09/17/24 15:28 09/17/24 15:28 09/17/24 15:28 09/17/24 15:28 09/16/24 07:40 FiO2 09/17/24 03:25 Oxygen Flow Rate (L/min) 6 Oxygen Delivery Method Room Air Weight: 96.8 kg Body Mass Index (BMI) 31.5 Intake & Output: Intake and Output for Last 24 Hours 09/15/24 09/16/24 09/17/24 23:59 23:59 23:59 Intake Total 1050 / 1050 2610 / 2810 1000 / 1000 Output Total 1500 / 1900 1300 / 1300 Balance 1050 / 1050 1110 / 910 -300 / -300 Lab / Micro Data 09/17/24 05:52 09/17/24 05:52 Labs: Laboratory Results - last 24 hr 09/17/24 05:52: WBC 7.4, RBC 4.29 L, Hgb 13.6, Hct 41.8, MCV 97.4 H, MCH 31.7, MCHC 32.5, RDW Std Deviation 47.7 H, RDW Coeff of Nick 13.2, Plt Count 121 L, MPV11.9, Immature Gran % (Auto) 0.300, Neut % (Auto) 77.9 H, Lymph % (Auto) 12.3 L,Greene % (Auto) 8.0, Eos % (Auto) 1.2, Baso % (Auto) 0.3, Absolute Neuts (auto) 5.8, Absolute Lymphs (auto) 0.91, Nucleated RBC % 0, Sodium 139, Potassium 4.3, Chloride 103, Carbon Dioxide 28.1, Anion Gap 9, BUN 12, Creatinine 0.96, Estim Creat Clear Calc 86.87, Est GFR (MDRD) Non-Af 87, BUN/Creatinine Ratio 12.0, Glucose 101 H, Calcium 8.7, Phosphorus 3.0 Micro: Microbiology 09/15/24 19:00 Urine Catheter - Mayes Urine Culture - Final Klebsiella pneumoniae sp pneum Physical Exam Const alert, oriented x3, no apparent distress and well nourished; Negative for average body habitus or healthy appearing Constitutional Narrative: Obese, upper middle-aged, white male sitting up in a chair at the bedside, appears older than stated age, appears comfortable and nontoxic, watching television, very cooperative General Appearance: cooperative HEENT normocephalic, head/scalp atraumatic and moist oral mucous membranes HEENT Narrative: Mallampati 3-4, no thrush Neck Neck Narrative: Neck is short and thick, tracheostomy tube in place, mild secretions noted Resp normal respiratory effort, no retractions, no use of accessory muscles and No clear to auscultation bilaterally Resp Narrative: Continues with intermittent scattered upper airway wheeze Auscultation: wheezes; Negative for crackles or rhonchi Cardio regular rate, regular rhythm, S1 normal heart sound, S2 normal heart sound, no murmurs, no rub, no gallops and no clicks GI normal to inspection, nondistended, normoactive bowel sounds, soft to palpation and non-tender GI Narrative: Large protuberant abdomen Extremity Extremity Narrative: Trace bilateral lower extremity edema that appears to be chronic, no cyanosis orclubbing Neuro moves all extremities and no focal motor deficits Neuro Narrative: Resting tremor noted, mild bradykinesia, response times are appropriate but speech is slightly slowed Speech: Negative for speech normal Psych affect normal Psych Narrative: Very pleasant, interacts appropriately Assessment & Plan Assessment/Plan (1) Generalized weakness: (2) Leukocytosis: (3) Elevated troponin: (4) Complicated UTI (urinary tract infection): PLAN: Plan Complicated Klebsiella UTI secondary to intermittent self-catheterization - Culture shows fairly pansensitive Klebsiella should be able to go home on oralagents - pt self caths - already on macrobid for chronic suppression Thrombocytopenia - Stabilizing and trending up - Suspect related to acute infection Elevated troponin - suspect demand ischemia 2/2 acute infection - ECHO without wall motion abn, EF 55%, stage 1 diastolic dysfunction - no further work-up Generalized weakness - PT/OT following and patient doing fairly well - No therapy is recommended at discharge Carotid aa Stenosis -Mild <50% stenosis R extracranial ICA -continue risk factor modification -continue plavix L Hip Pain -known OA -xray unremarkable -PRN tylenol Parkinison's disease -Cont carbidopa-levodopa -cont Fludrocortisone -PT/OT -Outpt Neuro f/u VCD/cricopharyngeal dysphagia/H/O angioedema - has trach - stable CAD/Essential HTN/Hyperlipidemia/Chronic Diastolic HF - s/p RCA stent - Continue DAPT H/O DVT -remote Hypothyroidism - s/p thyroidectomy (1998) - cont levothyroxine COPD with remote h/o Tobacco abuse - continue home meds - ongoing cessation - no acute decompensation Obesity - BMI 31.5 - Recommend wgt loss - complicates treatment/prognosis/outcomes DVT prophylaxis - continue Lovenox Code Status -Full Code Charges/Coding Visit Charges Inpatient E&M: 15206 Subs Hosp L2 09/17/24 1707 <Electronically signed by Danita Spaulding DO> Cosigner Signature (if applicable): CC: ~ Signed [facility] Work Phone: 1(542) 701-525007-31-[address] [facility] Medical Records Department [address] [place] [address] Progress Note - Hospitalist 09/17/24 1654 MR#: [id number] Acct: [id number] Name: FREDDIE COLE Rep #:[id number] : 1960 64 From: Danita Spaulding DO PCP: Dr. Biju Lobo DO Status:ADM IN Location: [place] [address] Reason for Visit Chief Complaint: Generalized Weakness and Fatigue. Subjective Subjective Patient states he is overall feeling much better today. Should be able to switch to oral antibiotics at discharge. States he is still peeing a little bitweak and feels like he needs a little bit moretime before you go as he is fairly independent and his can help him and he still having trouble gettingaround a bit but certainly much better since he came in. Objective Data Objective Data Vital Signs: Vital Signs Temp Pulse Resp BP Pulse Ox O2 Del Method O2 Flow Rate 98.8 F 82 18 107/76 94 Room Air 6 09/17/24 15:28 09/17/24 15:28 09/17/24 15:28 09/17/24 15:28 09/17/24 15:28 09/17/24 15:28 09/16/24 07:40 FiO2 28 09/17/24 03:25 Oxygen Flow Rate (L/min) 6 Oxygen Delivery Method Room Air Weight: 96.8 kg Body Mass Index (BMI) 31.5 Intake & Output: Intake and Output for Last 24 Hours 09/15/24 09/16/24 09/17/24 23:59 23:59 23:59 Intake Total 1050 / 1050 2610 / 2810 1000 / 1000 Output Total 1500 / 1900 1300 / 1300 Balance 1050 / 1050 1110 / 910 -300 / -300 Lab / Micro Data 09/17/24 05:52 09/17/24 05:52 Labs: Laboratory Results - last 24 hr 09/17/24 05:52: WBC 7.4, RBC 4.29 L, Hgb 13.6, Hct 41.8, MCV 97.4 H, MCH 31.7, MCHC 32.5, RDW Std Deviation 47.7 H, RDW Coeff of Nick 13.2, Plt Count 121 L, MPV11.9, Immature Gran % (Auto) 0.300, Neut% (Auto) 77.9 H, Lymph % (Auto) 12.3 L,Greene % (Auto) 8.0, Eos % (Auto) 1.2, Baso % (Auto) 0.3, Absolute Neuts (auto) 5.8, Absolute Lymphs (auto) 0.91, Nucleated RBC % 0, Sodium 139, Potassium 4.3, Chloride 103, Carbon Dioxide 28.1, Anion Gap 9, BUN 12, Creatinine 0.96, Estim Creat Clear Calc 86.87,Est GFR (MDRD) Non-Af 87, BUN/Creatinine Ratio 12.0, Glucose 101 H, Calcium 8.7, Phosphorus 3.0 Micro: Microbiology 09/15/24 19:00 Urine Catheter - Mayes Urine Culture - Final Klebsiella pneumoniae sp pneum Physical Exam Const alert, oriented x3, no apparent distress and well nourished; Negative for average body habitus or healthy appearing Constitutional Narrative: Obese, upper middle-aged, white male sitting up in a chair at the bedside, appears older than stated age, appears comfortable and nontoxic, watching television, very cooperative General Appearance: cooperative HEENT normocephalic, head/scalp atraumatic and moist oral mucous membranes HEENT Narrative: Mallampati 3-4, no thrush Neck Neck Narrative: Neck is short and thick, tracheostomy tube in place, mild secretions noted Resp normal respiratory effort, no retractions, no use of accessory muscles and No clear to auscultationbilaterally Resp Narrative: Continues with intermittent scattered upper airway wheeze Auscultation: wheezes; Negative for crackles or rhonchi Cardio regular rate, regular rhythm, S1 normal heart sound, S2 normal heart sound, no murmurs, no rub, no gallops and no clicks GI normal to inspection, nondistended, normoactive bowel sounds, soft to palpation and non-tender GI Narrative: Large protuberant abdomen Extremity Extremity Narrative: Trace bilateral lower extremity edema that appears to be chronic, no cyanosis orclubbing Neuro moves all extremities and no focal motor deficits Neuro Narrative: Resting tremor noted, mild bradykinesia, response times are appropriate but speech is slightly slowed Speech: Negative for speech normal Psych affect normal Psych Narrative: Very pleasant, interacts appropriately Assessment & Plan Assessment/Plan (1) Generalized weakness: (2) Leukocytosis: (3) Elevated troponin: (4) Complicated UTI (urinary tract infection): PLAN: Plan Complicated Klebsiella UTI secondary to intermittent self-catheterization - Culture shows fairly pansensitive Klebsiella should be able to go home on oralagents - pt self caths - already on macrobid for chronic suppression Thrombocytopenia - Stabilizing and trending up - Suspect related to acute infection Elevated troponin - suspect demand ischemia 2/2 acute infection - ECHO without wall motion abn, EF 55%, stage 1 diastolic dysfunction - no further work-up Generalized weakness - PT/OT following and patient doing fairly well - No therapy is recommended at discharge Carotid aa Stenosis -Mild <50% stenosis R extracranial ICA -continue risk factor modification -continue plavix L Hip Pain -known OA -xray unremarkable -PRN tylenol Parkinison's disease -Cont carbidopa-levodopa -cont Fludrocortisone -PT/OT -Outpt Neuro f/u VCD/cricopharyngeal dysphagia/H/O angioedema - has trach - stable CAD/Essential HTN/Hyperlipidemia/Chronic Diastolic HF - s/p RCA stent - Continue DAPT H/O DVT -remote Hypothyroidism - s/p thyroidectomy (1998) - cont levothyroxine COPD with remote h/o Tobacco abuse - continue home meds - ongoing cessation - no acute decompensation Obesity - BMI 31.5 - Recommend wgt loss - complicates treatment/prognosis/outcomes DVT prophylaxis - continue Lovenox Code Status -Full Code Charges/Coding Visit Charges Inpatient E&M: 24957 Subs Hosp L2 09/17/24 1707 Cosigner Signature (if applicable): CC: ~ Signed [facility]07-30-2025 Progress note Author Danita Spaulding [facility] Note Date/Time September 16, 2024 5:18 pm [facility] Medical Records Department [address] [place] [address] Progress Note - Hospitalist 09/16/24 0755 MR#: [id number] Acct: [id number] Name: FREDDIE COLE Rep #:[id number] : 1960 64 From: Danita Spaulding DO PCP: Dr. Biju Lobo, Status:ADM IN Location: [place] [address]- 1 Reason for Visit Chief Complaint: Generalized Weakness and Fatigue. Subjective Subjective Patient states that overall he is feeling better today. Seems like the antibiotics are helping. Was complaining of a little bit of shortness of breathbut was needing some suctioning and breathing treatment at the time of my arrival. Patient states he really did not have dysuria. Self caths. Objective Data Objective Data Vital Signs: Vital Signs Temp Pulse Resp BP Pulse Ox O2 Del Method O2 Flow Rate 98.2 F 92 20 H 108/80 98 Trach Collar 6 09/16/24 04:33 09/16/24 07:40 09/16/24 07:40 09/16/24 04:33 09/16/24 07:40 09/16/24 07:40 09/16/24 07:40 FiO2 28 09/16/24 07:40 Oxygen Flow Rate (L/min) 6 Oxygen Delivery Method Trach Collar Weight: 94.6 kg Body Mass Index (BMI) 30.8 Intake & Output: Intake and Output for Last 24 Hours 09/14/24 09/15/24 09/16/24 23:59 23:59 23:59 Intake Total 1050 / 1050 450 / 450 Output Total 1150 / 1150 Balance 1050 / 1050 -700 / -700 Lab / Micro Data 09/16/24 05:47 09/16/24 05:47 Labs: Laboratory Results - last 24 hr 09/15/24 17:40: WBC 14.5 H, RBC 4.72, Hgb 15.0, Hct 46.5, MCV 98.5 H, MCH 31.8, MCHC 32.3, RDW Std Deviation 48.4 H, RDW Coeff of Nick 13.2, Plt Count 130 L, MPV11.7, Immature Gran % (Auto) 0.500, Neut % (Auto) 83.0 H, Lymph % (Auto) 8.1 L, Greene % (Auto) 8.0, Eos % (Auto) 0.1, Baso % (Auto) 0.3, Absolute Neuts (auto) 12.1 H, Absolute Lymphs (auto) 1.18, Nucleated RBC % 0, PT 15.0 H, INR 1.2, APTT28.5, Sodium Cancelled 09/15/24 17:40: Sodium 137, Potassium Cancelled 09/15/24 17:40: Potassium 4.1, Chloride Cancelled 09/15/24 17:40: Chloride 99, Carbon Dioxide Cancelled 09/15/24 17:40: Carbon Dioxide 24.4, Anion Gap Cancelled 09/15/24 17:40: Anion Gap 13, BUN Cancelled 09/15/24 17:40: BUN 22 H, Creatinine Cancelled 09/15/24 17:40: Creatinine 1.39 H, Estim Creat Clear Calc Cancelled 09/15/24 17:40: Estim Creat Clear Calc 59.40, Est GFR (MDRD) Non-Af Cancelled 09/15/24 17:40: Est GFR (MDRD) Non-Af 56 L, BUN/Creatinine Ratio Cancelled 09/15/24 17:40: BUN/Creatinine Ratio 16.1, Glucose Cancelled 09/15/24 17:40: Glucose 109 H, Calcium Cancelled 09/15/24 17:40: Calcium 9.3, Total Bilirubin Cancelled 09/15/24 17:40: Total Bilirubin 1.17, AST Cancelled 09/15/24 17:40: AST 34, ALT Cancelled 09/15/24 17:40: ALT 6, Alkaline Phosphatase Cancelled 09/15/24 17:40: Alkaline Phosphatase 72, Troponin T High Sens 47 H, NT pro BNP II 938 H 09/15/24 17:40: NT pro BNP II Cancelled, Total Protein Cancelled 09/15/24 17:40: Total Protein 7.4, Albumin Cancelled 09/15/24 17:40: Albumin 4.0, Globulin Cancelled 09/15/24 17:40: Globulin 3.4, Albumin/Globulin Ratio Cancelled 09/15/24 17:40: Albumin/Globulin Ratio 1.2, Lipase Cancelled 09/15/24 17:40: Lipase 9 L 09/15/24 17:41: Lactic Acid 1.1 09/15/24 19:00: Urine Color Yellow, Urine Clarity Sl. Cloudy, Urine pH 6.0, Ur Specific [place] 1.015, Urine Protein 30 H, Urine Glucose (UA) Normal, Urine Ketones 5 H, Urine Occult Blood 25 H, Urine Nitrite Positive H, Urine Bilirubin Negative, Urine Urobilinogen Normal, Ur Leukocyte Esterase 500 H, Urine RBC 0-5 SEEN, Urine WBC >100 SEEN, Ur Squamous Epith Cells 0-5 SEEN, Urine Bacteria 4+, Urine Mucus 0 SEEN 09/15/24 19:50: Troponin T Hi Sens 2 Hr 43 H 09/15/24 23:30: Magnesium 2.0, Troponin T Hi Sens 4Hr 43 H, TSH 0.602 09/16/24 05:47: WBC 10.1, RBC 4.25 L, Hgb 13.6, Hct 41.8, MCV 98.4 H, MCH 32.0, MCHC 32.5, RDW Std Deviation 48.2 H, RDW Coeff of Nick 13.3, Plt Count 111 L, MPV11.9, Immature Gran % (Auto) 0.400, Neut % (Auto) 81.0 H, Lymph % (Auto) 9.8 L, Greene % (Auto) 7.8, Eos % (Auto) 0.7, Baso % (Auto) 0.3, Absolute Neuts (auto) 8.2 H, Absolute Lymphs (auto) 0.99, Nucleated RBC % 0, Sodium 139, Potassium 3.9, Chloride 103, Carbon Dioxide 27.0, Anion Gap 9, BUN 18, Creatinine 1.12, Estim Creat Clear Calc 73.65, Est GFR (MDRD) Non-Af 72, BUN/Creatinine Ratio 15.8, Glucose 100 H, Calcium 8.6, Phosphorus 3.0, Total Bilirubin 1.00, AST 28, ALT 16, Alkaline Phosphatase 64, Total Protein 6.5, Albumin 3.7, Globulin 2.9, Albumin/Globulin Ratio 1.3 Radiography Diagnostic Testing: Radiology Impression Brain CT 09/15/24 17:59 IMPRESSION: No acute intracranial abnormality. Reading Location: [facility] Chest X-Ray 09/15/24 18:20 IMPRESSION: Mild pulmonary vascular congestion. No focal consolidation. Reading Location: [facility] Hip/Pelvis X-Ray 09/15/24 18:20 IMPRESSION: 1. No acute fracture or dislocation. 2. Moderate-advanced bilateral hip osteoarthritis, more advanced on the left. Reading Location: [facility] Chest CT 09/15/24 19:12 IMPRESSION: No focal consolidations. Bibasilar subsegmental atelectasis. Minimal bibasilar bronchiectasis. Reading Location: [facility] Physical Exam Const alert, oriented x3, no apparent distress and well nourished; Negative for average body habitus or healthy appearing Constitutional Narrative: Obese, upper middle-aged, white male sitting up in a chair at the bedside, appears older than stated age, appears comfortable and nontoxic, watching television, very cooperative HEENT head/scalp atraumatic and moist oral mucous membranes HEENT Narrative: Mallampati is 3-4, no thrush Head and Scalp: normocephalic Neck supple Neck Narrative: Neck is short and thick, tracheostomy tube in place, mild secretions noted Resp normal respiratory effort, no retractions, no use of accessory muscles and No clear to auscultation bilaterally Resp Narrative: Scattered upper airway wheeze Auscultation: wheezes Cardio regular rate, regular rhythm, S1 normal heart sound, S2 normal heart sound, no murmurs, no rub, no gallops and no clicks GI normal to inspection, nondistended, normoactive bowel sounds, soft to palpation,non-tender and non-distended GI Narrative: Large protuberant abdomen Extremity Extremity Narrative: Trace bilateral lower extremity edema that appears to be chronic, no cyanosis orclubbing Neuro oriented x3, moves all extremities and no focal motor deficits Speech: speech normal Psych affect normal Psych Narrative: Very pleasant, interacts appropriately Assessment & Plan Assessment/Plan (1) Generalized weakness: (2) Leukocytosis: (3) Elevated troponin: (4) Complicated UTI (urinary tract infection): PLAN: Plan Complicated UTI - UA c/w UTI - cx P - white count normalized with CTX so will continue - pt self caths - await cx and narrow to PO abx as appropriate - already on macrobid for chronic suppression Leukocytosis - resolved with abx - L shift trended down with abx as well - repeat in am Thrombocytopenia - acute - suspect 2/2 acute infection - repeat in am Elevated troponin - suspect demand ischemia 2/2 acute infection - ECHO without wall motion abn, EF 55%, stage 1 diastolic dysfunction - no further work-up MICHAEL -resolved Generalized weakness -PT/OT eval pending Carotid aa Stenosis -Mild <50% stenosis R extracranial ICA -continue risk factor modification -continue plavix L Hip Pain -known OA -xray unremarkable -PRN tylenol Parkinison's disease -Cont carbidopa-levodopa -cont Fludrocortisone -PT/OT -Outpt Neuro f/u VCD/cricopharyngeal dysphagia/H/O angioedema - has trach - stable CAD/Essential HTN/Hyperlipidemia/Chronic Diastolic HF - s/p RCA stent - Continue DAPT H/O DVT -remote Hypothyroidism - s/p thyroidectomy (1998) - cont levothyroxine COPD with remote h/o Tobacco abuse -continue home meds - ongoing cessation - no acute decompensation Obesity - BMI 30.8 - Recommend wgt loss - complicates treatment/prognosis/outcomes DVT prophylaxis - continue Lovenox Code Status -Full Code 09/16/24 1718 <Electronically signed by Danita Spaulding DO> Cosigner Signature (if applicable): CC: ~ Signed [facility] Work Phone: [phone] 409-812207-30-[address] [facility] Medical Records Department [address] [place] [address] Progress Note - Hospitalist 09/16/24 0755 MR#: [id number] Acct: [id number] Name: FREDDIE COLE Rep #:[id number] : 1960 64 From: Danita Spaulding DO PCP: Dr. Biju Lobo DO Status:ADM IN Location: [place] [address] Reason for Visit Chief Complaint: Generalized Weakness and Fatigue. Subjective Subjective Patient states that overall he is feeling better today. Seems like the antibiotics are helping. Wascomplaining of a little bit of shortness of breathbut was needing some suctioning and breathing treatment at the time of my arrival. Patient states he really did not have dysuria. Self caths. Objective Data Objective Data Vital Signs: Vital Signs Temp Pulse Resp BP Pulse Ox O2 Del Method O2 Flow Rate 98.2 F 92 20 H 108/80 98 Trach Collar 6 09/16/24 04:33 09/16/24 07:40 09/16/24 07:40 09/16/24 04:33 09/16/24 07:40 09/16/24 07:40 09/16/24 07:40 FiO2 28 09/16/24 07:40 Oxygen Flow Rate (L/min) 6 Oxygen Delivery Method Trach Collar Weight: 94.6 kg Body Mass Index (BMI) 30.8 Intake & Output: Intake and Output for Last 24 Hours 09/14/24 09/15/24 09/16/24 23:59 23:59 23:59 Intake Total 1050 / 1050 450 / 450 Output Total 1150 / 1150 Balance 1050 / 1050 -700 / -700 Lab / Micro Data 09/16/24 05:47 09/16/24 05:47 Labs: Laboratory Results - last 24 hr 09/15/24 17:40: WBC 14.5 H, RBC 4.72, Hgb 15.0, Hct 46.5, MCV 98.5 H, MCH 31.8, MCHC 32.3, RDW Std Deviation 48.4 H, RDW Coeff of Nick 13.2, Plt Count 130 L, MPV11.7, Immature Gran % (Auto) 0.500, Neut % (Auto) 83.0 H, Lymph % (Auto) 8.1 L, Greene % (Auto) 8.0, Eos % (Auto) 0.1, Baso % (Auto) 0.3, Absolute Neuts (auto) 12.1 H, Absolute Lymphs (auto) 1.18, Nucleated RBC % 0, PT 15.0 H, INR 1.2, APTT28.5, Sodium Cancelled 09/15/24 17:40: Sodium 137, Potassium Cancelled 09/15/24 17:40: Potassium 4.1, Chloride Cancelled 09/15/24 17:40: Chloride 99, Carbon Dioxide Cancelled 09/15/24 17:40: Carbon Dioxide 24.4, Anion Gap Cancelled 09/15/24 17:40: Anion Gap 13, BUN Cancelled 09/15/24 17:40: BUN 22 H, Creatinine Cancelled 09/15/24 17:40: Creatinine 1.39 H, Estim Creat Clear Calc Cancelled 09/15/24 17:40: Estim Creat Clear Calc 59.40, Est GFR (MDRD) Non-Af Cancelled 09/15/24 17:40: Est GFR (MDRD) Non-Af 56 L, BUN/Creatinine Ratio Cancelled 09/15/24 17:40: BUN/Creatinine Ratio 16.1, Glucose Cancelled 09/15/24 17:40: Glucose 109 H, Calcium Cancelled 09/15/24 17:40: Calcium 9.3, Total Bilirubin Cancelled 09/15/24 17:40: Total Bilirubin 1.17, AST Cancelled 09/15/24 17:40: AST 34, ALT Cancelled 09/15/24 17:40: ALT 6, Alkaline Phosphatase Cancelled 09/15/24 17:40: Alkaline Phosphatase 72, Troponin T High Sens 47 H, NT pro BNP II 938 H 09/15/24 17:40: NT pro BNP II Cancelled, Total Protein Cancelled 09/15/24 17:40: Total Protein 7.4, Albumin Cancelled 09/15/24 17:40: Albumin 4.0, Globulin Cancelled 09/15/24 17:40: Globulin 3.4, Albumin/Globulin Ratio Cancelled 09/15/24 17:40: Albumin/Globulin Ratio 1.2, Lipase Cancelled 09/15/24 17:40: Lipase 9 L 09/15/24 17:41: Lactic Acid 1.1 09/15/24 19:00: Urine Color Yellow, Urine Clarity Sl. Cloudy, Urine pH 6.0, Ur Specific [place] 1.015, Urine Protein 30 H, Urine Glucose (UA) Normal, Urine Ketones 5 H, Urine Occult Blood 25 H, UrineNitrite Positive H, Urine Bilirubin Negative, Urine Urobilinogen Normal, Ur Leukocyte Esterase 500 H, Urine RBC 0-5 SEEN, Urine WBC >100 SEEN, Ur Squamous Epith Cells 0-5 SEEN, Urine Bacteria 4+, Urine Mucus 0 SEEN 09/15/24 19:50: Troponin T Hi Sens 2 Hr 43 H 09/15/24 23:30: Magnesium 2.0, Troponin T Hi Sens 4Hr 43 H, TSH 0.602 09/16/24 05:47: WBC 10.1, RBC 4.25 L, Hgb 13.6, Hct 41.8, MCV 98.4 H, MCH 32.0, MCHC 32.5, RDW Std Deviation 48.2 H, RDW Coeff of Nick 13.3, Plt Count 111 L, MPV11.9, Immature Gran % (Auto) 0.400, Neut % (Auto) 81.0 H, Lymph % (Auto) 9.8 L, Greene % (Auto) 7.8, Eos % (Auto) 0.7, Baso % (Auto) 0.3, Absolute Neuts (auto) 8.2 H, Absolute Lymphs (auto) 0.99, Nucleated RBC % 0, Sodium 139, Potassium 3.9,Chloride 103, Carbon Dioxide 27.0, Anion Gap 9, BUN 18, Creatinine 1.12, Estim Creat Clear Calc 73.65, Est GFR (MDRD) Non-Af 72, BUN/Creatinine Ratio 15.8, Glucose 100 H, Calcium 8.6, Phosphorus 3.0,Total Bilirubin 1.00, AST 28, ALT 16, Alkaline Phosphatase 64, Total Protein 6.5, Albumin 3.7, Globulin 2.9, Albumin/Globulin Ratio 1.3 Radiography Diagnostic Testing: Radiology Impression Brain CT 09/15/24 17:59 IMPRESSION: No acute intracranial abnormality. Reading Location: [facility] Chest X-Ray 09/15/24 18:20 IMPRESSION: Mild pulmonary vascular congestion. No focal consolidation. Reading Location: [facility] Hip/Pelvis X-Ray 09/15/24 18:20 IMPRESSION: 1. No acute fracture or dislocation. 2. Moderate-advanced bilateral hip osteoarthritis, more advanced on the left. Reading Location: [facility] Chest CT 09/15/24 19:12 IMPRESSION: No focal consolidations. Bibasilar subsegmental atelectasis. Minimal bibasilar bronchiectasis. Reading Location: [facility] Physical Exam Const alert, oriented x3, no apparent distress and well nourished; Negative for average body habitus or healthy appearing Constitutional Narrative: Obese, upper middle-aged, white male sitting up in a chair at the bedside, appears older than stated age, appears comfortable and nontoxic, watching television, very cooperative HEENT head/scalp atraumatic and moist oral mucous membranes HEENT Narrative: Mallampati is 3-4, no thrush Head and Scalp: normocephalic Neck supple Neck Narrative: Neck is short and thick, tracheostomy tube in place, mild secretions noted Resp normal respiratory effort, no retractions, no use of accessory muscles and No clear to auscultationbilaterally Resp Narrative: Scattered upper airway wheeze Auscultation: wheezes Cardio regular rate, regular rhythm, S1 normal heart sound, S2 normal heart sound, no murmurs, no rub, no gallops and no clicks GI normal to inspection, nondistended, normoactive bowel sounds, soft to palpation,non-tender and non-distended GI Narrative: Large protuberant abdomen Extremity Extremity Narrative: Trace bilateral lower extremity edema that appears to be chronic, no cyanosis orclubbing Neuro oriented x3, moves all extremities and no focal motor deficits Speech: speech normal Psych affect normal Psych Narrative: Very pleasant, interacts appropriately Assessment & Plan Assessment/Plan (1) Generalized weakness: (2) Leukocytosis: (3) Elevated troponin: (4) Complicated UTI (urinary tract infection): PLAN: Plan Complicated UTI - UA c/w UTI - cx P - white count normalized with CTX so will continue - pt self caths - await cx and narrow to PO abx as appropriate - already on macrobid for chronic suppression Leukocytosis - resolved with abx - L shift trended down with abx as well - repeat in am Thrombocytopenia - acute - suspect 2/2 acute infection - repeat in am Elevated troponin - suspect demand ischemia 2/2 acute infection - ECHO without wall motion abn, EF 55%, stage 1 diastolic dysfunction - no further work-up MICHAEL -resolved Generalized weakness -PT/OT eval pending Carotid aa Stenosis -Mild <50% stenosis R extracranial ICA -continue risk factor modification -continue plavix L Hip Pain -known OA -xray unremarkable -PRN tylenol Parkinison's disease -Cont carbidopa-levodopa -cont Fludrocortisone -PT/OT -Outpt Neuro f/u VCD/cricopharyngeal dysphagia/H/O angioedema - has trach - stable CAD/Essential HTN/Hyperlipidemia/Chronic Diastolic HF - s/p RCA stent - Continue DAPT H/O DVT -remote Hypothyroidism - s/p thyroidectomy (1998) - cont levothyroxine COPD with remote h/o Tobacco abuse -continue home meds - ongoing cessation - no acute decompensation Obesity - BMI 30.8 - Recommend wgt loss - complicates treatment/prognosis/outcomes DVT prophylaxis - continue Lovenox Code Status -Full Code 09/16/24 1718 Cosigner Signature (if applicable): CC: ~ Signed [facility]07-30-2025 History and physical note Author Nikolai Plaza [facility] Note Date/Time September 16, 2024 6:39 am [facility] Medical Records Department [address] [place] [address] H&P Exam - Hospitalist 09/15/24 2300 MR#: [id number] Acct: [id number] Name: JULIAFREDDIE LORE Rep #:[id number] : 1960 64 From: Nikolai Ann DO PCP: Dr. Biju Lobo, DO Status:ADM IN Location: [id number] HPI - General General Date of Admission: 09/15/24 Date of Service: 09/15/24 Chief Complaint: Generalized Weakness and Fatigue. HPI Narrative FREDDIE COLE, is a 64 M with a past medical history of essential hypertension;on furosemide, hyperlipidemia; on rosuvastatin, hypothyroidism; s/p thyroidectomy (1998) on levothyroxine, obesity; with BMI of 30.9 this admission,MARYJO, Parkinson's disease; on carbidopa-levodopa TID plus ropinirole TID, Shy-Drager syndrome; on fludrocortisone followed by Dr. Hernandez of neurology,historyof tobacco abuse; with subsequent asthma/COPD on prednisone, budesonide BID, formoterol BID and duo- nebs q.4 hours prn, history of vocal cord dysfunction; with previous tracheostomy, history of cricopharyngeal dysphagia, history of chronic diastolic CHF; with preserved LVEF, history of DVT, history of coronary artery stenosis; s/p RCA stent (2021) on BASA and clopidogrel, angioedema, history of proctitis, BPH; with [id number] urinary retention and Mayes catheter placement on tamsulosin and suprressive nitrofurantoin (-W-F), OA; of the Right hip and history of COVID-19 (10/2023) treated conservatively with oral Dexamethasone with patient currently participating in cardiopulmonary rehabilitation who presents to [facility] ER complaining of who presents to [facility] ER complaining of generalized weakness and fatigue. Mr. Cole reports his symptoms began approximately 1 week prior to admission with a gradual-onset of fatigue and generalized weakness. He states he has beenin cardiopulmonary rehab since September 07, 2024 3 times weekly with patient left feeling tired and very fatigued. Then earlier today he could not get out of bedas he was so weak with an additional complaint of Left hip pain so he decided tocome in for further evaluation and treatment. He denies recent injury or fall but he does admit to self catheterizing up to 4 times per day with recent replacement of his Mayes earlier today. He also denies dysuria, hematuria or lower abdominal pain but he does admit to discolored urine. There was also no report of associated fever, chills, nausea, vomiting, diarrhea, constipation, abdominal pain, chest pain, palpitations, heart racing, lower extremity edema, headache or rash. In the ER he was noted to have a UA positive for Acute Cystitis; without hematuria with a corresponding Leukocytosis of 14.5 K present on admission in the setting of previously known BPH; with xehqh-[id number] urinary retention and recent Mayes catheter placement on tamsulosin and suppressive nitrofurantoin (-W-) complicated by suspected MICHAEL with elevated serum creatinine of 1.39 mg/dL present on admission (up from his baseline of 0.95 mg/dL last admission) compounded by moderate Thrombocytopenia of 130 K present on admission in addition to mildly elevated troponin T of 47 ng/L and mildly elevated NT pro-BNP II of 938 pg/mL suspected to be due to mild acute cardiac strain with no clinical or radiographic signs of AE CHF at this time allculminating to cause Generalized Weakness and Fatigue with Left Hip Pain in the setting of known OA. He was then admitted to the PCU for ongoing care for stay that is expected to extend beyond 2 midnights. [facility] Medical History Transient hypotension Acute dyspnea Acute [...] Spasm of vocal cords High cholesterol Hypothyroidism Home Medications ?Medication ?Instructions ?Recorded ?Last Taken ?Type levothyroxine 150 mcg tablet 150 mcg PO DAILY thyroid 01/13/21 09/07/23 History (Synthroid) aspirin 81 mg chewable tablet 81 mg PO DAILY heart hea lth 01/24/22 09/07/23 History (Luis Alberto Chewable Low Dose Aspirin) tamsulosin 0.4 mg capsule 0.4 mg PO DAILY prostate 09/07/23 History Handicap placard #1 ea 10/01/22 Unknown Rx budesonide 1 mg/2 mL suspension 1 mg (2 mL) inhalation BID 10/17/23 Unknown Rx for nebulization breathing #120 mL nitrofurantoin 100 mg PO MOWEFR bladder 04/13 Unknown History monohydrate/macrocrystals 100 mg capsule furosemide 40 mg tablet (Lasix) 20 mg (1/2 x 40 mg) PO 1200 PRN 11/02/23 Unknown Rx Leg swelling 30 days #0 tabs clopidogrel 75 mg tablet 75 mg PO DAILY anit platelet #90 04/06/24 Unknown Rx tabs potassium chloride 20 mEq 20 meq PO DAILY supplement # 90 tabs 04/07/24 Unknown Rx tablet,extended release rosuvastatin 5 mg tablet 5 mg PO DAILY cholesterol #9 0 tabs 04/10/24 Unknown Rx formoterol fumarate 20 mcg/2 mL 2 ml inhalation BID #1 20 mL 04/15/24 Unknown Rx solution for nebulization (Perforomist) nebulizer kits #1 ea 04/15/24 Unknown Rx revefenacin 175 mcg/3 mL solution 175 mcg (3 mL) inhal ation QDAY #90 04/15/24 Unknown Rx for nebulization (Yupelri) mL ipratropium 0.5 mg-albuterol 3 mg 3 ml inhalation Q4H PRN PRN SOB 05/20/24 Unknown Rx (2.5 mg base)/3 mL nebulization &/OR WHEEZING #360 mL soln prednisone 10 mg tablet 10 mg PO QDAY #30 tabs 07/15 Unknown Rx atropine 1 % eye drops See Rx Instructions buccal D AILY 07/23/24 Unknown Rx secretions #15 mL carbidopa 25 mg-levodopa 100 mg 2 tab PO TID parkinson s #540 tabs 07/23/24 Unknown Rx tablet fludrocortisone 0.1 mg tablet 0.2 mg (2 x 0.1 mg) PO Q AM #180 07/23/24 Unknown Rx tabs Motorized scooter #1 ea 09/10/24 Unknown Rx omeprazole 40 mg capsule,delayed 40 mg PO DAILY Unknown History release ropinirole 1 mg tablet 0.5 mg PO TID 09/15/24 Unkno wn History Allergy/AdvReac Type Severity Reaction Status Date / Time vibegron (From [employer]) Allergy Severe Rash Verified 09/15/24 17:11 Family History Father COPD (chronic obstructive pulmonary disease) Emphysema lung Myocardial infarction Mother Parkinsons disease Malignant melanoma Surgical History Status post tracheostomy 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 artery (~06/06/21) H/O cardiac catheterization (~06/06/21) Hx of arthroscopy of knee H/O knee surgery H/O thyroidectomy Social History household members: spouse Smoking Status: Former smoker Tobacco: How many years used: 45 second hand exposure: Yes alcohol intake: former substance use type: does not use caffeine: Yes (daily) Type: coffee Number of servings: 2 what type of physical activity do you participate in: walking seatbelt use: sometimes ROS ROS Narrative Review of Systems: Constitutional: Patient denies fever or chills. Eyes: Patient denies change in vision or discharge from eyes. ENT: Patient denies runny nose, sore throat or ear pain. Resp: Patient denies shortness of breath but admits to chronic cough with sputumproduction. CV: Patient denies chest pain, palpitations, heart racing or lower extremity edema. GI: Patient denies abdominal pain, nausea, vomiting, diarrhea or constipation. : Patient admits to frequent self-catheterization as per HPI. MSK: Patient admits to generalized weakness and fatigue but he denies arthralgias or myalgias. Skin: Patient denies rash, abscess, wounds or jaundice. Psych: Patient denies symptoms of uncontrolled depression or anxiety. Neuro: Patient denies headache, paresthesias or focal neurologic deficits. Allergy: Patient denies lip swelling, tongue swelling or urticaria. Hematology: Patient denies easy bleeding or easy bruisability. Endocrinology: Patient denies polyuria, polydipsia, polyphagia or heat/cold intolerance. 14 point ROS otherwise negative except for positives noted above in HPI. Vital Signs Vital Signs Vital Signs: 09/15/24 17:08 09/15/24 17:45 09/15/24 18:03 Temperature 99.7 F H Temperature Source Oral Pulse Rate 95 93 Respiratory Rate 16 24 H Respiratory Effort Blood Pressure 132/84 H Blood Pressure Mean 100 Pulse Ox 94 Oxygen Delivery Method Trach Collar Room Air 09/15/24 18:29 09/15/24 19:10 09/15/24 20:00 Temperature 98.1 F 100.7 F H Temperature Source Oral Oral Pulse Rate 91 84 Respiratory Rate 27 H 18 Respiratory Effort Short of Breath Blood Pressure 147/88 H 128/78 H Blood Pressure Mean 107 94 Pulse Ox 94 91 Oxygen Delivery Method Room Air Room Air 09/15/24 21:00 09/15/24 21:07 Temperature 100.9 F H Temperature Source Oral Pulse Rate 89 Respiratory Rate 21 H Respiratory Effort Blood Pressure 119/72 Blood Pressure Mean 87 Pulse Ox 96 94 Oxygen Delivery Method Room Air Room Air Weight Weight: 208 lb 15.971 oz Body Mass Index (BMI) 30.8 Physical Exam Const alert, oriented x3 and no apparent distress Constitutional Narrative: Obese with chronically ill appearance and tracheostomy in place. General Appearance: cooperative HEENT normocephalic, head/scalp atraumatic, hearing grossly normal bilaterally and moist oral mucous membranes Eyes PERRL, EOMs intact bilaterally and conjunctivae normal Neck no lymphadenopathy, supple and no JVD Resp Resp Narrative: Diminished throughout with coarse breath sounds bilaterally. Cardio regular rate and regular rhythm GI normal to inspection, nondistended, normoactive bowel sounds, soft to palpation,non-tender and non-distended GI Narrative: Obese. Extremity Extremity Narrative: Patient has limited range of motion of the Left hip due to pain with no obvious anatomic abnormalities or signs of recent injury. Skin Skin Narrative: Patient has no evidence of rash, abscess, wounds or jaundice. Neuro oriented x3, CN's II-XII intact bilaterally, moves all extremities and no focal motor deficits Sensorium / Orientation: awake, alert, oriented to person, oriented to place andoriented to time Speech: speech normal Psych affect normal Results Medical Records Data Attestation: I reviewed the patient's medical records Lab / Micro Data Attestation: I reviewed the patient's lab results. 09/15/24 17:40 09/15/24 17:40 Labs: Laboratory Results - last 24 hr 09/15/24 17:40: WBC 14.5 H, RBC 4.72, Hgb 15.0, Hct 46.5, MCV 98.5 H, MCH 31.8, MCHC 32.3, RDW Std Deviation 48.4 H, RDW Coeff of Nick 13.2, Plt Count 130 L, MPV11.7, Immature Gran % (Auto) 0.500, Neut % (Auto) 83.0 H, Lymph % (Auto) 8.1 L, Greene % (Auto) 8.0, Eos % (Auto) 0.1, Baso % (Auto) 0.3, Absolute Neuts (auto) 12.1 H, Absolute Lymphs (auto) 1.18, Nucleated RBC % 0, PT 15.0 H, INR 1.2, APTT28.5, Sodium Cancelled 09/15/24 17:40: Sodium 137, Potassium Cancelled 09/15/24 17:40: Potassium 4.1, Chloride Cancelled 09/15/24 17:40: Chloride 99, Carbon Dioxide Cancelled 09/15/24 17:40: Carbon Dioxide 24.4, Anion Gap Cancelled 09/15/24 17:40: Anion Gap 13, BUN Cancelled 09/15/24 17:40: BUN 22 H, Creatinine Cancelled 09/15/24 17:40: Creatinine 1.39 H, Estim Creat Clear Calc Cancelled 09/15/24 17:40: Estim Creat Clear Calc 59.40, Est GFR (MDRD) Non-Af Cancelled 09/15/24 17:40: Est GFR (MDRD) Non-Af 56 L, BUN/Creatinine Ratio Cancelled 09/15/24 17:40: BUN/Creatinine Ratio 16.1, Glucose Cancelled 09/15/24 17:40: Glucose 109 H, Calcium Cancelled 09/15/24 17:40: Calcium 9.3, Total Bilirubin Cancelled 09/15/24 17:40: Total Bilirubin 1.17, AST Cancelled 09/15/24 17:40: AST 34, ALT Cancelled 09/15/24 17:40: ALT 6, Alkaline Phosphatase Cancelled 09/15/24 17:40: Alkaline Phosphatase 72, Troponin T High Sens 47 H, NT pro BNP II 938 H 09/15/24 17:40: NT pro BNP II Cancelled, Total Protein Cancelled 09/15/24 17:40: Total Protein 7.4, Albumin Cancelled 09/15/24 17:40: Albumin 4.0, Globulin Cancelled 09/15/24 17:40: Globulin 3.4, Albumin/Globulin Ratio Cancelled 09/15/24 17:40: Albumin/Globulin Ratio 1.2, Lipase Cancelled 09/15/24 17:40: Lipase 9 L 09/15/24 17:41: Lactic Acid 1.1 09/15/24 19:00: Urine Color Yellow, Urine Clarity Sl. Cloudy, Urine pH 6.0, Ur Specific [place] 1.015, Urine Protein 30 H, Urine Glucose (UA) Normal, Urine Ketones 5 H, Urine Occult Blood 25 H, Urine Nitrite Positive H, Urine Bilirubin Negative, Urine Urobilinogen Normal, Ur Leukocyte Esterase 500 H, Urine RBC 0-5 SEEN, Urine WBC >100 SEEN, Ur Squamous Epith Cells 0-5 SEEN, Urine Bacteria 4+, Urine Mucus 0 SEEN 09/15/24 19:50: Troponin T Hi Sens 2 Hr 43 H Imaging Radiology Impression Brain CT 09/15/24 17:59 IMPRESSION: No acute intracranial abnormality. Reading Location: [facility] Chest X-Ray 09/15/24 18:20 IMPRESSION: Mild pulmonary vascular congestion. No focal consolidation. Reading Location: [facility] Hip/Pelvis X-Ray 09/15/24 18:20 IMPRESSION: 1. No acute fracture or dislocation. 2. Moderate-advanced bilateral hip osteoarthritis, more advanced on the left. Reading Location: [facility] Chest CT 09/15/24 19:12 IMPRESSION: No focal consolidations. Bibasilar subsegmental atelectasis. Minimal bibasilar bronchiectasis. Reading Location: [facility] Assessment & Plan Assessment/Plan (1) Acute cystitis without hematuria: (2) BPH (benign prostatic hyperplasia): QUALIFIERS: Lower urinary tract symptom detail: unspecified Lowerurinary tract symptom presence: symptoms present Qualified Code(s): N40.1 - Benign prostatic hyperplasia with lower urinary tract symptoms (3) Acute on chronic urinary retention: (4) MICHAEL (acute kidney injury): (5) Elevated troponin: (6) Generalized weakness: (7) Fatigue: QUALIFIERS: Fatigue type: unspecified Qualified Code(s): R53.83 -Other fatigue (8) Obesity (BMI 30.0-34.9): (9) MARYJO (obstructive sleep apnea): (10) Thrombocytopenia: (11) Parkinson's disease: QUALIFIERS: Dyskinesia presence: without dyskinesia Fluctuating manifestations: unspecified whether manifestations fluctuate Qualified Code(s):G20.A1 - Parkinson's disease without dyskinesia, without mention of fluctuations PLAN: Plan 1. UA positive for Acute Cystitis; without hematuria with a corresponding Leukocytosis of 14.5 K present on admission in the setting of previously known BPH; with [id number] urinary retention and Mayes catheter placement on tamsulosin and suppressive nitrofurantoin (M-W-F) with infection suspected to bedue to chronic Mayes and frequent self-catheterization - Admit to PCU. Continueempiric IV ceftriaxone begun in the ER and await culture and sensitivity data. Patient has new Mayes. Give acetaminophen prn for [id number] (level 1-5/10) pain or fever. Give oxycodone prn for severe (level 6-10/10) pain. Give ondansetron IV as needed for nausea and vomiting. 2. Suspected MICHAEL with elevated serum creatinine of 1.39 mg/dL present on admission (up from his baseline of 0.95 mg/dL last admission) complicating #1 - Gently volume resuscitate and recheck renal indices in AM to follow trend. 3. Mildly elevated troponin T of 47 ng/L and mildly elevated NT pro-BNP II of 938 pg/mL suspected to be due to mild acute cardiac strain likely due to #1 & #2- Doubt ACS. Serialize troponin. Most recent echocardiogram done July 25, 2023 which revealed LVEF 65% with normal diastology for age. Check echocardiogram toreevaluate LVEF since it has been more than 1 year since his previous echo. 4. Generalized Weakness and Fatigue with Left Hip Pain in setting of known OA exacerbated by recent participation in cardiopulmonary rehabilitation - PT/OT and Case Management consult and treat on rounds in a.m. for further recommendations with help appreciated in advance. X-rays on admission showed nosign of fracture or dislocation. 5. Obesity; with BMI of 30.9 this admission plus MARYJO adding to the burden of disease outlined from #1 - #4 - Weight loss will be recommended. Check TSH. This complicates his case and may hamper recovery. 6. Moderate Thrombocytopenia of 130 K present on admission - Noted. Check CBC daily to follow trend. 7. 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 Hernandez of neurology adding to the medical complexity of #1 - #6 - Maintain current regimen. 8. History of tobacco abuse; with subsequent asthma/COPD on prednisone, budesonide BID, formoterol BID and duo-nebs q.4 hours prn - Stable with no evidence of acute flare at this time. Continue current treatment. 9. History of vocal cord dysfunction; with previous tracheostomy - Noted. 10. History of cricopharyngeal dysphagia - Noted. 11. Essential hypertension; on furosemide - Maintain present therapy. 12. Hyperlipidemia; on rosuvastatin - Hold statin in case of mild toxicity contributing to #4. Monitor for improvement and consider alternative agent if symptoms markedly improved. 13. Hypothyroidism; s/p thyroidectomy (1998) on levothyroxine - Resume levothyroxine as before and check TSH. 14. History of chronic diastolic CHF; with preserved LVEF - Stable with no signs of acute volume overload at this time. 15. History of DVT - Noted. 16. History of coronary artery stenosis; s/p RCA stent (2021) on BASA and clopidogrel - Continue BASA and colpidogrel as previous. 17. History of angioedema - Noted with no signs of recurrence at this time. 18. History of proctitis - Noted. 19. History of COVID-19 (10/2023) treated conservatively with oral Dexamethasone- Noted. 20. DVT prophylaxis - Enoxaparin 40 mg sq daily plus SCD's. Total time: Approximately (but not less than) 75 minutes. Charges/Coding Visit Charges Inpatient E&M: 06270 Init Hosp L3 09/16/24 0639 <Electronically signed by Nikolai Freeman DO> Cosigner Signature (if applicable): CC: Dr. Nikolai Freeman DO; Dr. Biju Lobo DO~ Signed [facility] Work Phone: [phone] [facility] Medical Records Department [address] [place] [id number] H&P Exam - Hospitalist 09/15/24 2300 MR#: [id number] Acct: [id number] Name: FREDDIE COLE Rep #:[id number] : 1960 64 From: Nikolai Ann DO PCP: Dr. Biju Lobo DO Status:ADM IN Location: [address] HPI - General General Date of Admission: 09/15/24 Date of Service: 09/15/24 Chief Complaint: Generalized Weakness and Fatigue. HPI Narrative FREDDIE COLE, is a 64 M with a past medical history of essential hypertension;on furosemide, hyperlipidemia; on rosuvastatin, hypothyroidism; s/p thyroidectomy (1998) on levothyroxine, obesity; with BMI of 30.9 this admission,MARYJO, Parkinson's disease; on carbidopa-levodopa TID plus ropinirole TID, Shy-Drager syndrome; on fludrocortisone followed by Dr. Hernandez of neurology,historyof tobacco abuse; with subsequent asthma/COPD on prednisone, budesonide BID, formoterol BID and duo-nebs q.4 hoursprn, history of vocal cord dysfunction; with previous tracheostomy, history of cricopharyngeal dysphagia, history of chronic diastolic CHF; with preserved LVEF, history of DVT, history of coronary artery stenosis; s/p RCA stent (2021) on BASA and clopidogrel, angioedema, history of proctitis, BPH; with udibc-qw-cnudbwz urinary retention and Mayes catheter placement on tamsulosin and suprressive nitrofurantoin (-W-F), OA; of the Right hip and history of COVID-19 (10/2023) treated conservatively with oral Dexamethasone with patient currently participating in cardiopulmonary rehabilitation who presents to [facility] ER complaining of who presents to [facility] ER complaining of generalized weakness and fatigue. Mr. Cole reports his symptoms began approximately 1 week prior to admission with a gradual-onset of fatigue and generalized weakness. He states he has beenin cardiopulmonary rehab since September 07, 2024 3 times weekly with patient left feeling tired and very fatigued. Then earlier today he could notget out of bedas he was so weak with an additional complaint of Left hip pain so he decided tocome in for further evaluation and treatment. He denies recent injury or fall but he does admit to self catheterizing up to 4 times per day with recent replacement of his Mayes earlier today. He also denies dysuria, hematuria or lower abdominal pain but he does admit to discolored urine. There was also no report of associated fever, chills, nausea, vomiting, diarrhea, constipation, abdominal pain, chest pain, palpitations, heart racing, lower extremity edema, headache or rash. In the ER he was noted to have a UA positive for Acute Cystitis; without hematuria with a corresponding Leukocytosis of 14.5 K present on admission in the setting of previously known BPH; with kjkjs-uo-bgihqvy urinary retention and recent Mayes catheter placement on tamsulosin and suppressive nitrofurantoin (-W-) complicated by suspected MICHAEL with elevated serum creatinine of 1.39 mg/dL present on admission (up from his baseline of 0.95 mg/dL last admission) compounded by moderate Thrombocytopenia of 130 K present onadmission in addition to mildly elevated troponin T of 47 ng/L and mildly elevated NT pro-BNP II of938 pg/mL suspected to be due to mild acute cardiac strain with no clinical or radiographic signs of AE CHF at this time allculminating to cause Generalized Weakness and Fatigue with Left Hip Pain in the setting of known OA. He was then admitted to the PCU for ongoing care for stay that is expectedto extend beyond 2 midnights. [facility] Medical History Transient hypotension Acute dyspnea Acute [...] Spasm of vocal cords High cholesterol Hypothyroidism Home Medications ?Medication ?Instructions ?Recorded ?Last Taken ?Type levothyroxine 150 mcg tablet 150 mcg PO DAILY thyroid 01/13/21 09/07/23 History (Synthroid) aspirin 81 mg chewable tablet 81 mg PO DAILY heart hea lth 01/24/22 09/07/23 History (Luis Alberto Chewable Low Dose Aspirin) tamsulosin 0.4 mg capsule 0.4 mg PO DAILY prostate 09/07/23 History Handicap placard #1 ea 10/01/22 Unknown Rx budesonide 1 mg/2 mL suspension 1 mg (2 mL) inhalation BID 10/17/23 Unknown Rx for nebulization breathing #120 mL nitrofurantoin 100 mg PO MOWEFR bladder 04/13 Unknown History monohydrate/macrocrystals 100 mg capsule furosemide 40 mg tablet (Lasix) 20 mg (1/2 x 40 mg) PO 1200 PRN 11/02/23 Unknown Rx Leg swelling 30 days #0 tabs clopidogrel 75 mg tablet 75 mg PO DAILY anit platelet #90 04/06/24 Unknown Rx tabs potassium chloride 20 mEq 20 meq PO DAILY supplement # 90 tabs 04/07/24 Unknown Rx tablet,extended release rosuvastatin 5 mg tablet 5 mg PO DAILY cholesterol #9 0 tabs 04/10/24 Unknown Rx formoterol fumarate 20 mcg/2 mL 2 ml inhalation BID #1 20 mL 04/15/24 Unknown Rx solution for nebulization (Perforomist) nebulizer kits #1 ea 04/15/24 Unknown Rx revefenacin 175 mcg/3 mL solution 175 mcg (3 mL) inhal ation QDAY #90 04/15/24 Unknown Rx for nebulization (Yupelri) mL ipratropium 0.5 mg-albuterol 3 mg 3 ml inhalation Q4H PRN PRN SOB 05/20/24 Unknown Rx (2.5 mg base)/3 mL nebulization &/OR WHEEZING #360 mL soln prednisone 10 mg tablet 10 mg PO QDAY #30 tabs 07/15 Unknown Rx atropine 1 % eye drops See Rx Instructions buccal D AILY 07/23/24 Unknown Rx secretions #15 mL carbidopa 25 mg-levodopa 100 mg 2 tab PO TID parkinson s #540 tabs 07/23/24 Unknown Rx tablet fludrocortisone 0.1 mg tablet 0.2 mg (2 x 0.1 mg) PO Q AM #180 07/23/24 Unknown Rx tabs Motorized scooter #1 ea 09/10/24 Unknown Rx omeprazole 40 mg capsule,delayed 40 mg PO DAILY Unknown History release ropinirole 1 mg tablet 0.5 mg PO TID 09/15/24 Unkno wn History Allergy/AdvReac Type Severity Reaction Status Date / Time vibegron (From [place]) Allergy Severe Rash Verified 09/15/24 17:11 Family History Father COPD (chronic obstructive pulmonary disease) Emphysema lung Myocardial infarction Mother Parkinsons disease Malignant melanoma Surgical History Status post tracheostomy 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 artery (~06/06/21) H/O cardiac catheterization (~06/06/21) Hx of arthroscopy of knee H/O knee surgery H/O thyroidectomy Social History household members: spouse Smoking Status: Former smoker Tobacco: How many years used: 45 second hand exposure: Yes alcohol intake: former substance use type: does not use caffeine: Yes (daily) Type: coffee Number of servings: 2 what type of physical activity do you participate in: walking seatbelt use: sometimes ROS ROS Narrative Review of Systems: Constitutional: Patient denies fever or chills. Eyes: Patient denies change in vision or discharge from eyes. ENT: Patient denies runny nose, sore throat or ear pain. Resp: Patient denies shortness of breath but admits to chronic cough with sputumproduction. CV: Patient denies chest pain, palpitations, heart racing or lower extremity edema. GI: Patient denies abdominal pain, nausea, vomiting, diarrhea or constipation. : Patient admits to frequent self-catheterization as per HPI. MSK: Patient admits to generalized weakness and fatigue but he denies arthralgias or myalgias. Skin: Patient denies rash, abscess, wounds or jaundice. Psych: Patient denies symptoms of uncontrolled depression or anxiety. Neuro: Patient denies headache, paresthesias or focal neurologic deficits. Allergy: Patient denies lip swelling, tongue swelling or urticaria. Hematology: Patient denies easy bleeding or easy bruisability. Endocrinology: Patient denies polyuria, polydipsia, polyphagia or heat/cold intolerance. 14 point ROS otherwise negative except for positives noted above in HPI. Vital Signs Vital Signs Vital Signs: 09/15/24 17:08 09/15/24 17:45 09/15/24 18:03 Temperature 99.7 F H Temperature Source Oral Pulse Rate 95 93 Respiratory Rate 16 24 H Respiratory Effort Blood Pressure 132/84 H Blood Pressure Mean 100 Pulse Ox 94 Oxygen Delivery Method Trach Collar Room Air 09/15/24 18:29 09/15/24 19:10 09/15/24 20:00 Temperature 98.1 F 100.7 F H Temperature Source Oral Oral Pulse Rate 91 84 Respiratory Rate 27 H 18 Respiratory Effort Short of Breath Blood Pressure 147/88 H 128/78 H Blood Pressure Mean 107 94 Pulse Ox 94 91 Oxygen Delivery Method Room Air Room Air 09/15/24 21:00 09/15/24 21:07 Temperature 100.9 F H Temperature Source Oral Pulse Rate 89 Respiratory Rate 21 H Respiratory Effort Blood Pressure 119/72 Blood Pressure Mean 87 Pulse Ox 96 94 Oxygen Delivery Method Room Air Room Air Weight Weight: 208 lb 15.971 oz Body Mass Index (BMI) 30.8 Physical Exam Const alert, oriented x3 and no apparent distress Constitutional Narrative: Obese with chronically ill appearance and tracheostomy in place. General Appearance: cooperative HEENT normocephalic, head/scalp atraumatic, hearing grossly normal bilaterally and moist oral mucous membranes Eyes PERRL, EOMs intact bilaterally and conjunctivae normal Neck no lymphadenopathy, supple and no JVD Resp Resp Narrative: Diminished throughout with coarse breath sounds bilaterally. Cardio regular rate and regular rhythm GI normal to inspection, nondistended, normoactive bowel sounds, soft to palpation,non-tender and non-distended GI Narrative: Obese. Extremity Extremity Narrative: Patient has limited range of motion of the Left hip due to pain with no obvious anatomic abnormalities or signs of recent injury. Skin Skin Narrative: Patient has no evidence of rash, abscess, wounds or jaundice. Neuro oriented x3, CN's II-XII intact bilaterally, moves all extremities and no focal motor deficits Sensorium / Orientation: awake, alert, oriented to person, oriented to place andoriented to time Speech: speech normal Psych affect normal Results Medical Records Data Attestation: I reviewed the patient's medical records Lab / Micro Data Attestation: I reviewed the patient's lab results. 09/15/24 17:40 09/15/24 17:40 Labs: Laboratory Results - last 24 hr 09/15/24 17:40: WBC 14.5 H, RBC 4.72, Hgb 15.0, Hct 46.5, MCV 98.5 H, MCH 31.8, MCHC 32.3, RDW Std Deviation 48.4 H, RDW Coeff of Nick 13.2, Plt Count 130 L, MPV11.7, Immature Gran % (Auto) 0.500, Neut % (Auto) 83.0 H, Lymph % (Auto) 8.1 L, Greene % (Auto) 8.0, Eos % (Auto) 0.1, Baso % (Auto) 0.3, Absolute Neuts (auto) 12.1 H, Absolute Lymphs (auto) 1.18, Nucleated RBC % 0, PT 15.0 H, INR 1.2, APTT28.5, Sodium Cancelled 09/15/24 17:40: Sodium 137, Potassium Cancelled 09/15/24 17:40: Potassium 4.1, Chloride Cancelled 09/15/24 17:40: Chloride 99, Carbon Dioxide Cancelled 09/15/24 17:40: Carbon Dioxide 24.4, Anion Gap Cancelled 09/15/24 17:40: Anion Gap 13, BUN Cancelled 09/15/24 17:40: BUN 22 H, Creatinine Cancelled 09/15/24 17:40: Creatinine 1.39 H, Estim Creat Clear Calc Cancelled 09/15/24 17:40: Estim Creat Clear Calc 59.40, Est GFR (MDRD) Non-Af Cancelled 09/15/24 17:40: Est GFR (MDRD) Non-Af 56 L, BUN/Creatinine Ratio Cancelled 09/15/24 17:40: BUN/Creatinine Ratio 16.1, Glucose Cancelled 09/15/24 17:40: Glucose 109 H, Calcium Cancelled 09/15/24 17:40: Calcium 9.3, Total Bilirubin Cancelled 09/15/24 17:40: Total Bilirubin 1.17, AST Cancelled 09/15/24 17:40: AST 34, ALT Cancelled 09/15/24 17:40: ALT 6, Alkaline Phosphatase Cancelled 09/15/24 17:40: Alkaline Phosphatase 72, Troponin T High Sens 47 H, NT pro BNP II 938 H 09/15/24 17:40: NT pro BNP II Cancelled, Total Protein Cancelled 09/15/24 17:40: Total Protein 7.4, Albumin Cancelled 09/15/24 17:40: Albumin 4.0, Globulin Cancelled 09/15/24 17:40: Globulin 3.4, Albumin/Globulin Ratio Cancelled 09/15/24 17:40: Albumin/Globulin Ratio 1.2, Lipase Cancelled 09/15/24 17:40: Lipase 9 L 09/15/24 17:41: Lactic Acid 1.1 09/15/24 19:00: Urine Color Yellow, Urine Clarity Sl. Cloudy, Urine pH 6.0, Ur Specific [place] 1.015, Urine Protein 30 H, Urine Glucose (UA) Normal, Urine Ketones 5 H, Urine Occult Blood 25 H, UrineNitrite Positive H, Urine Bilirubin Negative, Urine Urobilinogen Normal, Ur Leukocyte Esterase 500 H, Urine RBC 0-5 SEEN, Urine WBC >100 SEEN, Ur Squamous Epith Cells 0-5 SEEN, Urine Bacteria 4+, Urine Mucus 0 SEEN 09/15/24 19:50: Troponin T Hi Sens 2 Hr 43 H Imaging Radiology Impression Brain CT 09/15/24 17:59 IMPRESSION: No acute intracranial abnormality. Reading Location: [facility] Chest X-Ray 09/15/24 18:20 IMPRESSION: Mild pulmonary vascular congestion. No focal consolidation. Reading Location: [facility] Hip/Pelvis X-Ray 09/15/24 18:20 IMPRESSION: 1. No acute fracture or dislocation. 2. Moderate-advanced bilateral hip osteoarthritis, more advanced on the left. Reading Location: [facility] Chest CT 09/15/24 19:12 IMPRESSION: No focal consolidations. Bibasilar subsegmental atelectasis. Minimal bibasilar bronchiectasis. Reading Location: [facility] Assessment & Plan Assessment/Plan (1) Acute cystitis without hematuria: (2) BPH (benign prostatic hyperplasia): QUALIFIERS: Lower urinary tract symptom detail: unspecified Lowerurinary tract symptom presence: symptoms present Qualified Code(s): N40.1 - Benign prostatic hyperplasia with lower urinary tract symptoms (3) Acute on chronic urinary retention: (4) MICHAEL (acute kidney injury): (5) Elevated troponin: (6) Generalized weakness: (7) Fatigue: QUALIFIERS: Fatigue type: unspecified Qualified Code(s): R53.83 -Other fatigue (8) Obesity (BMI 30.0-34.9): (9) MARYJO (obstructive sleep apnea): (10) Thrombocytopenia: (11) Parkinson's disease: QUALIFIERS: Dyskinesia presence: without dyskinesia Fluctuating manifestations: unspecified whethermanifestations fluctuate Qualified Code(s):G20.A1 - Parkinson's disease without dyskinesia, withoutmention of fluctuations PLAN: Plan 1. UA positive for Acute Cystitis; without hematuria with a corresponding Leukocytosis of 14.5 K present on admission in the setting of previously known BPH; with iukjj-he-bjfasuj urinary retention and Mayes catheter placement on tamsulosin and suppressive nitrofurantoin (-W-) with infection suspected to bedue to chronic Mayes and frequent self-catheterization - Admit to PCU. Continueempiric IVceftriaxone begun in the ER and await culture and sensitivity data. Patient has new Mayes. Give acetaminophen prn for tros-kb-pozmhqly (level 1-5/10) pain or fever. Give oxycodone prn for severe (level 6-10/10) pain. Give ondansetron IV as needed for nausea and vomiting. 2. Suspected MICHAEL with elevated serum creatinine of 1.39 mg/dL present on admission (up from his baseline of 0.95 mg/dL last admission) complicating #1 - Gently volume resuscitate and recheck renal indices in AM to follow trend. 3. Mildly elevated troponin T of 47 ng/L and mildly elevated NT pro-BNP II of 938 pg/mL suspected to be due to mild acute cardiac strain likely due to #1 & #2- Doubt ACS. Serialize troponin. Mostrecent echocardiogram done July 25, 2023 which revealed LVEF 65% with normal diastology for age. Check echocardiogram toreevaluate LVEF since it has been more than 1 year since his previous echo. 4. Generalized Weakness and Fatigue with Left Hip Pain in setting of known OA exacerbated by recentparticipation in cardiopulmonary rehabilitation - PT/OT and Case Management consult and treat on rounds in a.m. for further recommendations with help appreciated in advance. X-rays on admission showed nosign of fracture or dislocation. 5. Obesity; with BMI of 30.9 this admission plus MARYJO adding to the burden of disease outlined from #1 - #4 - Weight loss will be recommended. Check TSH. This complicates his case and may hamper recovery. 6. Moderate Thrombocytopenia of 130 K present on admission - Noted. Check CBC daily to follow trend. 7. 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 Hernandez of neurology adding to the medical complexity of #1 - #6 - Maintain current regimen. 8. History of tobacco abuse; with subsequent asthma/COPD on prednisone, budesonide BID, formoterol BID and duo-nebs q.4 hours prn - Stable with no evidence of acute flare at this time. Continue current treatment. 9. History of vocal cord dysfunction; with previous tracheostomy - Noted. 10. History of cricopharyngeal dysphagia - Noted. 11. Essential hypertension; on furosemide - Maintain present therapy. 12. Hyperlipidemia; on rosuvastatin - Hold statin in case of mild toxicity contributing to #4. Monitor for improvement and consider alternative agent if symptoms markedly improved. 13. Hypothyroidism; s/p thyroidectomy (1998) on levothyroxine - Resume levothyroxine as before and check TSH. 14. History of chronic diastolic CHF; with preserved LVEF - Stable with no signs of acute volume overload at this time. 15. History of DVT - Noted. 16. History of coronary artery stenosis; s/p RCA stent (2021) on BASA and clopidogrel - Continue BASA and colpidogrel as previous. 17. History of angioedema - Noted with no signs of recurrence at this time. 18. History of proctitis - Noted. 19. History of COVID-19 (10/2023) treated conservatively with oral Dexamethasone- Noted. 20. DVT prophylaxis - Enoxaparin 40 mg sq daily plus SCD's. Total time: Approximately (but not less than) 75 minutes. Charges/Coding Visit Charges Inpatient E&M: 09132 Init Hosp 09/16/24 0639 Cosigner Signature (if applicable): CC: Dr. Nikolai Freeman DO; Dr. Biju Lobo DO~ Signed [facility]07-30-2025 Discharge summary Author Jose Oliveira [facility] Note Date/Time September 15, 2024 11:0 3pm [facility] Medical Records Department [address] [place] [address] Emergency Department Summary 09/15/24 MR#: [id number] Acct: [id number] Name: JULIAFREDDIE LORE Rep #:[id number] : 1960 64 From: Jose Oliveira DO PCP: Dr. Biju Lobo DO Status:REG ER Location: ED HPI History of Present Illness Chief Complaint: Fatigue Narrative Narrative: Patient a 64-year-old male with past medical history of BPH, vocal cord dysfunction with tracheostomy in place, heart failure with preserved ejection fraction, CAD, COPD, MARYJO, Parkinson's disease who presented to the emergency department with a chief complaint of weakness. Patient states that he has been in cardiopulmonary rehab for a while now and has been doing this 3 times weekly and he feels that this is making him very tired and fatigued. He states that today he could not get up out of bed today as he was extremely weak and tired was also complaint of left hip pain. Denies any falls or injuries. [facility] Medical History Transient hypotension Acute [...] Spasm of vocal cords High cholesterol Hypothyroidism Home Medications ?Medication ?Instructions ?Recorded ?Last Taken ?Type levothyroxine 150 mcg tablet 150 mcg PO DAILY thyroid 01/13/21 09/07/23 History (Synthroid) aspirin 81 mg chewable tablet 81 mg PO DAILY heart hea lth 01/24/22 09/07/23 History (Luis Alberto Chewable Low Dose Aspirin) tamsulosin 0.4 mg capsule 0.4 mg PO DAILY prostate 09/07/23 History Handicap placard #1 ea 10/01/22 Unknown Rx budesonide 1 mg/2 mL suspension 1 mg (2 mL) inhalation BID 10/17/23 Unknown Rx for nebulization breathing #120 mL nitrofurantoin 100 mg PO MOWEFR bladder 04/13 Unknown History monohydrate/macrocrystals 100 mg capsule furosemide 40 mg tablet (Lasix) 20 mg (1/2 x 40 mg) PO 1200 PRN 11/02/23 Unknown Rx Leg swelling 30 days #0 tabs clopidogrel 75 mg tablet 75 mg PO DAILY anit platelet #90 04/06/24 Unknown Rx tabs potassium chloride 20 mEq 20 meq PO DAILY supplement # 90 tabs 04/07/24 Unknown Rx tablet,extended release rosuvastatin 5 mg tablet 5 mg PO DAILY cholesterol #9 0 tabs 04/10/24 Unknown Rx formoterol fumarate 20 mcg/2 mL 2 ml inhalation BID #1 20 mL 04/15/24 Unknown Rx solution for nebulization (Perforomist) nebulizer kits #1 ea 04/15/24 Unknown Rx revefenacin 175 mcg/3 mL solution 175 mcg (3 mL) inhal ation QDAY #90 04/15/24 Unknown Rx for nebulization (Yupelri) mL ipratropium 0.5 mg-albuterol 3 mg 3 ml inhalation Q4H PRN PRN SOB 05/20/24 Unknown Rx (2.5 mg base)/3 mL nebulization &/OR WHEEZING #360 mL soln guaifenesin 1,200 mg tablet, 1,200 mg PO .QD #30 tabs 05/27/24 Unknown Rx extended release 12 hr (Mucinex) prednisone 10 mg tablet 10 mg PO QDAY #30 tabs 07/15 Unknown Rx atropine 1 % eye drops See Rx Instructions buccal D AILY 07/23/24 Unknown Rx secretions #15 mL carbidopa 25 mg-levodopa 100 mg 2 tab PO TID parkinson s #540 tabs 07/23/24 Unknown Rx tablet fludrocortisone 0.1 mg tablet 0.2 mg (2 x 0.1 mg) PO Q AM #180 06/05/25 Unknown Rx tabs ropinirole 1 mg tablet 1 mg PO TID #90 tabs 5 Unknown Rx Motorized scooter #1 ea 09/10/24 Unknown Rx Allergy/AdvReac Type Severity Reaction Status Date / Time vibegron (From Gemtesa) Allergy Severe Rash Verified 09/15/24 17:11 Family History Father COPD (chronic obstructive pulmonary disease) Emphysema lung Myocardial infarction Mother Parkinsons disease Malignant melanoma Surgical History Status post tracheostomy 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 artery (~06/06/21) H/O cardiac catheterization (~06/06/21) Hx of arthroscopy of knee H/O knee surgery H/O thyroidectomy Social History household members: spouse Smoking Status: Former smoker Tobacco: How many years used: 45 second hand exposure: Yes alcohol intake: former substance use type: does not use caffeine: Yes (daily) Type: coffee Number of servings: 2 what type of physical activity do you participate in: walking seatbelt use: sometimes ROS ROS ED ROS Narrative Constitutional: Denies any fevers, chills, headaches Eyes: Denies double vision changes vision blurry vision Cardiovascular: Denies chest pain Respiratory: Denies shortness of breath denies increase sputum production Abdomen: Denies abdominal pain nausea vomit diarrhea : Denies urinary symptoms states that he does have to self cath Neurological: Denies numbness, weak, tingling Musculoskeletal: Denies back pain Skin: Denies rashes or lesions EXAM Physical Exam Narrative Exam Narrative: General: Patient lying bed resting comfortably did not appear to be acute distress Head: Atraumatic, normocephalic Eyes: PERRL bilaterally, EOMI bilateral, no conjunctival injection noted Neck: Soft, supple, trachea midline, tracheostomy in place no concern for infection Cardiovascular: Regular rate and rhythm Respiratory: Patient has coarse breath sounds bilaterally Abdomen: No tenderness palpation Extremities: Patient plaint of mild pain with attempted range of motion of his left hip Neurological: Patient flexing his knee that he was at [facility] the year is 2024 Skin: Warm, dry, tact no rashes or lesions noted Const Vital Signs: 09/15/24 17:08 09/15/24 17:45 09/15/24 18:03 Temperature 99.7 F H Temperature Source Oral Pulse Rate 95 93 Respiratory Rate 16 24 H Respiratory Effort Blood Pressure 132/84 H Blood Pressure Mean 100 Pulse Ox 94 Oxygen Delivery Method Trach Collar Room Air 09/15/24 18:29 09/15/24 19:10 09/15/24 20:00 Temperature 98.1 F 100.7 F H Temperature Source Oral Oral Pulse Rate 91 84 Respiratory Rate 27 H 18 Respiratory Effort Short of Breath Blood Pressure 147/88 H 128/78 H Blood Pressure Mean 107 94 Pulse Ox 94 91 Oxygen Delivery Method Room Air Room Air 09/15/24 21:00 09/15/24 21:07 Temperature 100.9 F H Temperature Source Oral Pulse Rate 89 Respiratory Rate 21 H Respiratory Effort Blood Pressure 119/72 Blood Pressure Mean 87 Pulse Ox 96 94 Oxygen Delivery Method Room Air Room Air MDM MDM MDM Narrative Medical decision making narrative: Patient is a 64-year-old male who presents to the emerged part with a chief complaint of generalized weakness. On the differential diagnose includes but notlimited to UTI, pneumonia, pneumothorax, ACS, electrolyte abnormality. Once workup is obtained reviewed he will be reevaluated. Patient will be given a liter of IV fluids As there is a history of heart failure which was ordered at 6:02 PM Patient's CBC was reviewed was significant for leukocytosis of 14,000, hemoglobin 15, platelet count of 130. Patient INR 1.2, PT 15. Patient sodium was 137, potassium normal at 4.1, creatinine was 1.39. Patient's troponin was 47 with a delta of 43, proBNP was noted to be 938. Patient's EKG was reviewed and showed sinus rhythm with a rate of 92 bpm. Patient's lipase was noted to be 9, urinalysis was significant for a urinary tract infection with positive nitrates 5 and leukocyte esterase greater than 100 white cells with 4+ bacteria he was given a gram of Rocephin which was ordered at 2033. This was sent for culture. Patient's x-ray of his hip and pelvis reviewed by myself by radiology showed no acute fracture or dislocation moderate Sarmiento bilateral hip osteoarthritis more advanced on the left where his pain is. Patient's chest x-ray reviewed by him some by radiology showed mild pulmonary vascular congestion no focal consolidation. Per nursing they suctioned a significant amount of sputum therefore I added a CT of the chest on. Patient CT chest reviewed no focal consolidations basilar subsegmental atelectasis minimal basilar bronchiectasis. Also given that respiratory is suctioning secretions we will add on azithromycin. On reevaluation the patient he did become hypoxic he is placed on trach collar. He was taken off of this as he was satting well and nursing staff try to get himup and ambulate and he desaturated to 87% Given his generalized weakness, acute hypoxic respiratory failure requiring oxygen/trach collar UTI will discuss case with hospitalist for admission. Discussed case with hospitalist Dr. Sotelo who accept the patient for admission. Updated patient and at bedside they are agreeable to plan all question concerns answered. Lab Data Labs: Laboratory Results - last 24 hr 09/15/24 09/15/24 09/15/24 17:40 17:40 17:40 WBC 14.5 H RBC 4.72 Hgb 15.0 Hct 46.5 MCV 98.5 H MCH 31.8 MCHC 32.3 RDW Std Deviation 48.4 H RDW Coeff of Nick 13.2 Plt Count 130 L MPV 11.7 Immature Gran % (Auto) 0.500 Neut % (Auto) 83.0 H Lymph % (Auto) 8.1 L Greene % (Auto) 8.0 Eos % (Auto) 0.1 Baso % (Auto) 0.3 Absolute Neuts (auto) 12.1 H Absolute Lymphs (auto) 1.18 Nucleated RBC % 0 PT 15.0 H INR 1.2 APTT 28.5 Sodium Cancelled 137 Potassium Cancelled 4.1 Chloride Cancelled Carbon Dioxide Anion Gap BUN Creatinine Estim Creat Clear Calc Est GFR (MDRD) Non-Af BUN/Creatinine Ratio Glucose Lactic Acid Calcium Total Bilirubin AST ALT Alkaline Phosphatase Troponin T High Sens Troponin T Hi Sens 2 Hr NT pro BNP II Total Protein Albumin Globulin Albumin/Globulin Ratio Lipase Urine Color Urine Clarity Urine pH Ur Specific [place] Urine Protein Urine Glucose (UA) Urine Ketones Urine Occult Blood Urine Nitrite Urine Bilirubin Urine Urobilinogen Ur Leukocyte Esterase Urine RBC Urine WBC Ur Squamous Epith Cells Urine Bacteria Urine Mucus 09/15/24 09/15/24 09/15/24 17:40 17:40 17:40 WBC RBC Hgb Hct MCV MCH MCHC RDW Std Deviation RDW Coeff of Nick Plt Count MPV Immature Gran % (Auto) Neut % (Auto) Lymph % (Auto) Greene % (Auto) Eos % (Auto) Baso % (Auto) Absolute Neuts (auto) Absolute Lymphs (auto) Nucleated RBC % PT INR APTT Sodium Potassium Chloride 99 Carbon Dioxide Cancelled 24.4 Anion Gap Cancelled 13 BUN Cancelled Creatinine Estim Creat Clear Calc Est GFR (MDRD) Non-Af BUN/Creatinine Ratio Glucose Lactic Acid Calcium Total Bilirubin AST ALT Alkaline Phosphatase Troponin T High Sens Troponin T Hi Sens 2 Hr NT pro BNP II Total Protein Albumin Globulin Albumin/Globulin Ratio Lipase Urine Color Urine Clarity Urine pH Ur Specific [place] Urine Protein Urine Glucose (UA) Urine Ketones Urine Occult Blood Urine Nitrite Urine Bilirubin Urine Urobilinogen Ur Leukocyte Esterase Urine RBC Urine WBC Ur Squamous Epith Cells Urine Bacteria Urine Mucus 09/15/24 09/15/24 09/15/24 17:40 17:40 17:40 WBC RBC Hgb Hct MCV MCH MCHC RDW Std Deviation RDW Coeff of Nick Plt Count MPV Immature Gran % (Auto) Neut % (Auto) Lymph % (Auto) Greene % (Auto) Eos % (Auto) Baso % (Auto) Absolute Neuts (auto) Absolute Lymphs (auto) Nucleated RBC % PT INR APTT Sodium Potassium Chloride Carbon Dioxide Anion Gap BUN 22 H Creatinine Cancelled 1.39 H Estim Creat Clear Calc Cancelled 59.40 Est GFR (MDRD) Non-Af Cancelled BUN/Creatinine Ratio Glucose Lactic Acid Calcium Total Bilirubin AST ALT Alkaline Phosphatase Troponin T High Sens Troponin T Hi Sens 2 Hr NT pro BNP II Total Protein Albumin Globulin Albumin/Globulin Ratio Lipase Urine Color Urine Clarity Urine pH Ur Specific [place] Urine Protein Urine Glucose (UA) Urine Ketones Urine Occult Blood Urine Nitrite Urine Bilirubin Urine Urobilinogen Ur Leukocyte Esterase Urine RBC Urine WBC Ur Squamous Epith Cells Urine Bacteria Urine Mucus 09/15/24 09/15/24 09/15/24 17:40 17:40 17:40 WBC RBC Hgb Hct MCV MCH MCHC RDW Std Deviation RDW Coeff of Nick Plt Count MPV Immature Gran % (Auto) Neut % (Auto) Lymph % (Auto) Greene % (Auto) Eos % (Auto) Baso % (Auto) Absolute Neuts (auto) Absolute Lymphs (auto) Nucleated RBC % PT INR APTT Sodium Potassium Chloride Carbon Dioxide Anion Gap BUN Creatinine Estim Creat Clear Calc Est GFR (MDRD) Non-Af 56 L BUN/Creatinine Ratio Cancelled 16.1 Glucose Cancelled 109 H Lactic Acid Calcium Cancelled Total Bilirubin AST ALT Alkaline Phosphatase Troponin T High Sens Troponin T Hi Sens 2 Hr NT pro BNP II Total Protein Albumin Globulin Albumin/Globulin Ratio Lipase Urine Color Urine Clarity Urine pH Ur Specific [place] Urine Protein Urine Glucose (UA) Urine Ketones Urine Occult Blood Urine Nitrite Urine Bilirubin Urine Urobilinogen Ur Leukocyte Esterase Urine RBC Urine WBC Ur Squamous Epith Cells Urine Bacteria Urine Mucus 09/15/24 09/15/24 09/15/24 17:40 17:40 17:40 WBC RBC Hgb Hct MCV MCH MCHC RDW Std Deviation RDW Coeff of Nick Plt Count MPV Immature Gran % (Auto) Neut % (Auto) Lymph % (Auto) Greene % (Auto) Eos % (Auto) Baso % (Auto) Absolute Neuts (auto) Absolute Lymphs (auto) Nucleated RBC % PT INR APTT Sodium Potassium Chloride Carbon Dioxide Anion Gap BUN Creatinine Estim Creat Clear Calc Est GFR (MDRD) Non-Af BUN/Creatinine Ratio Glucose Lactic Acid Calcium 9.3 Total Bilirubin Cancelled 1.17 AST Cancelled 34 ALT Cancelled Alkaline Phosphatase Troponin T High Sens Troponin T Hi Sens 2 Hr NT pro BNP II Total Protein Albumin Globulin Albumin/Globulin Ratio Lipase Urine Color Urine Clarity Urine pH Ur Specific [place] Urine Protein Urine Glucose (UA) Urine Ketones Urine Occult Blood Urine Nitrite Urine Bilirubin Urine Urobilinogen Ur Leukocyte Esterase Urine RBC Urine WBC Ur Squamous Epith Cells Urine Bacteria Urine Mucus 09/15/24 09/15/24 09/15/24 17:40 17:40 17:40 WBC RBC Hgb Hct MCV MCH MCHC RDW Std Deviation RDW Coeff of Nick Plt Count MPV Immature Gran % (Auto) Neut % (Auto) Lymph % (Auto) Greene % (Auto) Eos % (Auto) Baso % (Auto) Absolute Neuts (auto) Absolute Lymphs (auto) Nucleated RBC % PT INR APTT Sodium Potassium Chloride Carbon Dioxide Anion Gap BUN Creatinine Estim Creat Clear Calc Est GFR (MDRD) Non-Af BUN/Creatinine Ratio Glucose Lactic Acid Calcium Total Bilirubin AST ALT 6 Alkaline Phosphatase Cancelled 72 Troponin T High Sens 47 H Troponin T Hi Sens 2 Hr NT pro BNP II 938 H Cancelled Total Protein Cancelled Albumin Globulin Albumin/Globulin Ratio Lipase Urine Color Urine Clarity Urine pH Ur Specific [place] Urine Protein Urine Glucose (UA) Urine Ketones Urine Occult Blood Urine Nitrite Urine Bilirubin Urine Urobilinogen Ur Leukocyte Esterase Urine RBC Urine WBC Ur Squamous Epith Cells Urine Bacteria Urine Mucus 09/15/24 09/15/24 09/15/24 17:40 17:40 17:40 WBC RBC Hgb Hct MCV MCH MCHC RDW Std Deviation RDW Coeff of Nick Plt Count MPV Immature Gran % (Auto) Neut % (Auto) Lymph % (Auto) Greene % (Auto) Eos % (Auto) Baso % (Auto) Absolute Neuts (auto) Absolute Lymphs (auto) Nucleated RBC % PT INR APTT Sodium Potassium Chloride Carbon Dioxide Anion Gap BUN Creatinine Estim Creat Clear Calc Est GFR (MDRD) Non-Af BUN/Creatinine Ratio Glucose Lactic Acid Calcium Total Bilirubin AST ALT Alkaline Phosphatase Troponin T High Sens Troponin T Hi Sens 2 Hr NT pro BNP II Total Protein 7.4 Albumin Cancelled 4.0 Globulin Cancelled 3.4 Albumin/Globulin Ratio Cancelled Lipase Urine Color Urine Clarity Urine pH Ur Specific [place] Urine Protein Urine Glucose (UA) Urine Ketones Urine Occult Blood Urine Nitrite Urine Bilirubin Urine Urobilinogen Ur Leukocyte Esterase Urine RBC Urine WBC Ur Squamous Epith Cells Urine Bacteria Urine Mucus 09/15/24 09/15/24 09/15/24 17:40 17:40 17:41 WBC RBC Hgb Hct MCV MCH MCHC RDW Std Deviation RDW Coeff of Nick Plt Count MPV Immature Gran % (Auto) Neut % (Auto) Lymph % (Auto) Greene % (Auto) Eos % (Auto) Baso % (Auto) Absolute Neuts (auto) Absolute Lymphs (auto) Nucleated RBC % PT INR APTT Sodium Potassium Chloride Carbon Dioxide Anion Gap BUN Creatinine Estim Creat Clear Calc Est GFR (MDRD) Non-Af BUN/Creatinine Ratio Glucose Lactic Acid 1.1 Calcium Total Bilirubin AST ALT Alkaline Phosphatase Troponin T High Sens Troponin T Hi Sens 2 Hr NT pro BNP II Total Protein Albumin Globulin Albumin/Globulin Ratio 1.2 Lipase Cancelled 9 L Urine Color Urine Clarity Urine pH Ur Specific [place] Urine Protein Urine Glucose (UA) Urine Ketones Urine Occult Blood Urine Nitrite Urine Bilirubin Urine Urobilinogen Ur Leukocyte Esterase Urine RBC Urine WBC Ur Squamous Epith Cells Urine Bacteria Urine Mucus 09/15/24 09/15/24 19:00 19:50 WBC RBC Hgb Hct MCV MCH MCHC RDW Std Deviation RDW Coeff of Nick Plt Count MPV Immature Gran % (Auto) Neut % (Auto) Lymph % (Auto) Greene % (Auto) Eos % (Auto) Baso % (Auto) Absolute Neuts (auto) Absolute Lymphs (auto) Nucleated RBC % PT INR APTT Sodium Potassium Chloride Carbon Dioxide Anion Gap BUN Creatinine Estim Creat Clear Calc Est GFR (MDRD) Non-Af BUN/Creatinine Ratio Glucose Lactic Acid Calcium Total Bilirubin AST ALT Alkaline Phosphatase Troponin T High Sens Troponin T Hi Sens 2 Hr 43 H NT pro BNP II Total Protein Albumin Globulin Albumin/Globulin Ratio Lipase Urine Color Yellow Urine Clarity Sl. Cloudy Urine pH 6.0 Ur Specific Wh[place] 1.015 Urine Protein 30 H Urine Glucose (UA) Normal Urine Ketones 5 H Urine Occult Blood 25 H Urine Nitrite Positive H Urine Bilirubin Negative Urine Urobilinogen Normal Ur Leukocyte Esterase 500 H Urine RBC 0-5 SEEN Urine WBC >100 SEEN Ur Squamous Epith Cells 0-5 SEEN Urine Bacteria 4+ Urine Mucus 0 SEEN Radiography Diagnostic Testing: Clinical Impression(s) from Imaging Studies Brain CT 09/15/24 17:59 IMPRESSION: No acute intracranial abnormality. Reading Location: [facility] Chest X-Ray 09/15/24 18:20 IMPRESSION: Mild pulmonary vascular congestion. No focal consolidation. Reading Location: [facility] Hip/Pelvis X-Ray 09/15/24 18:20 IMPRESSION: 1. No acute fracture or dislocation. 2. Moderate-advanced bilateral hip osteoarthritis, more advanced on the left. Reading Location: [facility] Chest CT 09/15/24 19:12 IMPRESSION: No focal consolidations. Bibasilar subsegmental atelectasis. Minimal bibasilar bronchiectasis. Reading Location: [facility] Discharge Plan Triage Chief Complaint: Fatigue ED Provider: Jose Oliveira Dx/Rx/DC Orders Clinical Impression: Acute hypoxic respiratory failure, CAD (coronary artery disease), Parkinson's disease, (HFpEF) heart failure with preserved ejection fraction, Generalized weakness, Urinary tract infection Prescriptions: No Action tamsulosin 0.4 mg capsule 0.4 mg PO DAILY budesonide 1 mg/2 mL suspension for nebulization 1 mg inhalation BID Qty: 120 11RF formoterol fumarate [Perforomist] 20 mcg/2 mL solution for nebulization 2 ml inhalation BID Qty: 120 3RF Yupelri 175 mcg/3 mL solution for nebulization 175 mcg inhalation QDAY Qty: 90 3RF (DME) nebulizer kits See Rx Instructions .ROUTE .MEDSUPPLY Qty: 1 11RF Rx Instructions: As directed guaifenesin [Mucinex] 1,200 mg tablet extended release 12hr 1,200 mg PO .QD Qty: 30 11RF carbidopa-levodopa 25-100 mg tablet 2 tab PO TID Qty: 540 2RF fludrocortisone 0.1 mg tablet 0.2 mg PO QAM Qty: 180 1RF ropinirole 1 mg tablet 1 mg PO TID Qty: 90 5RF atropine 1 % drops See Rx Instructions buccal DAILY Qty: 15 6RF Rx Instructions: Take 1 to 2 drops buccally daily (DME) Motorized scooter See Rx Instructions .Route .MEDSUPPLY Qty: 1 0RF Rx Instructions: As directed prednisone 10 mg tablet 10 mg PO QDAY Qty: 30 0RF Rx Instructions: take 4 tabs for three days, then 3 tabs for three days, then 2 tabs for three days, then 1 tab for 3 days levothyroxine [Synthroid] 150 mcg tablet 150 mcg PO DAILY aspirin [Luis Alberto Chewable Aspirin] 81 mg tablet,chewable 81 mg PO DAILY Patient Comments: 1 tablet by mouth once a day furosemide [Lasix] 40 mg tablet 20 mg PO 1200 PRN (Reason: Leg swelling) 30 Days Qty: 0 0RF Rx Instructions: Hold for SBP less than 100 mmHg nitrofurantoin monohyd/m-cryst 100 mg capsule 100 mg PO MOWEFR (DME) Handicap placard See Rx Instructions .Route .MEDSUPPLY Qty: 1 0RF Rx Instructions: Expiration: 10/01/2025 clopidogrel 75 mg tablet 75 mg PO DAILY Qty: 90 3RF potassium chloride 20 mEq tablet extended release 20 meq PO DAILY Qty: 90 3RF rosuvastatin 5 mg tablet 5 mg PO DAILY Qty: 90 3RF ipratropium-albuterol 0.5 mg-3 mg(2.5 mg base)/3 mL solution for nebulization 3 ml inhalation Q4H PRN PRN (Reason: SOB &/OR WHEEZING) Qty: 360 11RF Primary Care Provider: Biju Lobo Referrals: Biju Lobo DO [Primary Care Provider] - Print Language: Tunisian Disposition Disposition: Acute Care Hospital [facility] What to do if you have Problems For any increased pain, shortness of breath, bleeding, nausea or vomiting, chestpain, or any unexpected problems, contact your Primary Care Provider. Call [facility] ([phone]) or report to the closest Emergency Room. Call 911 if necessary. 09/15/24 230 <Electronically signed by Jose Oliveira DO> Cosigner Signature (if applicable): CC: Dr. Biju Lobo DO ~ Signed [facility] Work Phone: [phone] Discharge summary [facility] Medical Records Department [address] [place] [address] Emergency Department Summary 09/15/24 MR#: [id number] Acct: [id number] Name: FREDDIE COLE Rep #:[id number] : 1960 64 From: Jose Oliveira DO PCP: Dr. Biju Lobo DO Status:REG ER Location: ED HPI History of Present Illness Chief Complaint: Fatigue Narrative Narrative: Patient a 64-year-old male with past medical history of BPH, vocal cord dysfunction with tracheostomy in place, heart failure with preserved ejection fraction, CAD, COPD, MARYJO, Parkinson's disease whopresented to the emergency department with a chief complaint of weakness. Patient states that he has been in cardiopulmonary rehab for a while now and has been doing this 3 times weekly and he feels that this is making him very tired and fatigued. He states that today he could not get up out of bedtoday as he was extremely weak and tired was also complaint of left hip pain. Denies any falls or injuries. [facility] Medical History Transient hypotension Acute [...] Spasm of vocal cords High cholesterol Hypothyroidism Home Medications ?Medication ?Instructions ?Recorded ?Last Taken ?Type levothyroxine 150 mcg tablet 150 mcg PO DAILY thyroid 01/13/21 09/07/23 History (Synthroid) aspirin 81 mg chewable tablet 81 mg PO DAILY heart hea lth 01/24/22 09/07/23 History (Luis Alberto Chewable Low Dose Aspirin) tamsulosin 0.4 mg capsule 0.4 mg PO DAILY prostate 09/07/23 History Handicap placard #1 ea 10/01/22 Unknown Rx budesonide 1 mg/2 mL suspension 1 mg (2 mL) inhalation BID 10/17/23 Unknown Rx for nebulization breathing #120 mL nitrofurantoin 100 mg PO MOWEFR bladder 04/13 Unknown History monohydrate/macrocrystals 100 mg capsule furosemide 40 mg tablet (Lasix) 20 mg (1/2 x 40 mg) PO 1200 PRN 11/02/23 Unknown Rx Leg swelling 30 days #0 tabs clopidogrel 75 mg tablet 75 mg PO DAILY anit platelet #90 04/06/24 Unknown Rx tabs potassium chloride 20 mEq 20 meq PO DAILY supplement # 90 tabs 04/07/24 Unknown Rx tablet,extended release rosuvastatin 5 mg tablet 5 mg PO DAILY cholesterol #9 0 tabs 04/10/24 Unknown Rx formoterol fumarate 20 mcg/2 mL 2 ml inhalation BID #1 20 mL 04/15/24 Unknown Rx solution for nebulization (Perforomist) nebulizer kits #1 ea 04/15/24 Unknown Rx revefenacin 175 mcg/3 mL solution 175 mcg (3 mL) inhal ation QDAY #90 04/15/24 Unknown Rx for nebulization (Yupelri) mL ipratropium 0.5 mg-albuterol 3 mg 3 ml inhalation Q4H PRN PRN SOB 05/20/24 Unknown Rx (2.5 mg base)/3 mL nebulization &/OR WHEEZING #360 mL soln guaifenesin 1,200 mg tablet, 1,200 mg PO .QD #30 tabs 05/27/24 Unknown Rx extended release 12 hr (Mucinex) prednisone 10 mg tablet 10 mg PO QDAY #30 tabs 07/15 Unknown Rx atropine 1 % eye drops See Rx Instructions buccal D AILY 07/23/24 Unknown Rx secretions #15 mL carbidopa 25 mg-levodopa 100 mg 2 tab PO TID parkinson s #540 tabs 07/23/24 Unknown Rx tablet fludrocortisone 0.1 mg tablet 0.2 mg (2 x 0.1 mg) PO Q AM #180 07/23/24 Unknown Rx tabs ropinirole 1 mg tablet 1 mg PO TID #90 tabs 5 Unknown Rx Motorized scooter #1 ea 09/10/24 Unknown Rx Allergy/AdvReac Type Severity Reaction Status Date / Time vibegron (From Gem[place]a) Allergy Severe Rash Verified 09/15/24 17:11 Family History Father COPD (chronic obstructive pulmonary disease) Emphysema lung Myocardial infarction Mother Parkinsons disease Malignant melanoma Surgical History Status post tracheostomy 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 artery (~06/06/21) H/O cardiac catheterization (~06/06/21) Hx of arthroscopy of knee H/O knee surgery H/O thyroidectomy Social History household members: spouse Smoking Status: Former smoker Tobacco: How many years used: 45 second hand exposure: Yes alcohol intake: former substance use type: does not use caffeine: Yes (daily) Type: coffee Number of servings: 2 what type of physical activity do you participate in: walking seatbelt use: sometimes ROS ROS ED ROS Narrative Constitutional: Denies any fevers, chills, headaches Eyes: Denies double vision changes vision blurry vision Cardiovascular: Denies chest pain Respiratory: Denies shortness of breath denies increase sputum production Abdomen: Denies abdominal pain nausea vomit diarrhea : Denies urinary symptoms states that he does have to self cath Neurological: Denies numbness, weak, tingling Musculoskeletal: Denies back pain Skin: Denies rashes or lesions EXAM Physical Exam Narrative Exam Narrative: General: Patient lying bed resting comfortably did not appear to be acute distress Head: Atraumatic, normocephalic Eyes: PERRL bilaterally, EOMI bilateral, no conjunctival injection noted Neck: Soft, supple, trachea midline, tracheostomy in place no concern for infection Cardiovascular: Regular rate and rhythm Respiratory: Patient has coarse breath sounds bilaterally Abdomen: No tenderness palpation Extremities: Patient plaint of mild pain with attempted range of motion of his left hip Neurological: Patient flexing his knee that he was at [facility] the year is 2024 Skin: Warm, dry, tact no rashes or lesions noted Const Vital Signs: 09/15/24 17:08 09/15/24 17:45 09/15/24 18:03 Temperature 99.7 F H Temperature Source Oral Pulse Rate 95 93 Respiratory Rate 16 24 H Respiratory Effort Blood Pressure 132/84 H Blood Pressure Mean 100 Pulse Ox 94 Oxygen Delivery Method Trach Collar Room Air 09/15/24 18:29 09/15/24 19:10 09/15/24 20:00 Temperature 98.1 F 100.7 F H Temperature Source Oral Oral Pulse Rate 91 84 Respiratory Rate 27 H 18 Respiratory Effort Short of Breath Blood Pressure 147/88 H 128/78 H Blood Pressure Mean 107 94 Pulse Ox 94 91 Oxygen Delivery Method Room Air Room Air 09/15/24 21:00 07/29/25 21:07 Temperature 100.9 F H Temperature Source Oral Pulse Rate 89 Respiratory Rate 21 H Respiratory Effort Blood Pressure 119/72 Blood Pressure Mean 87 Pulse Ox 96 94 Oxygen Delivery Method Room Air Room Air MDM MDM MDM Narrative Medical decision making narrative: Patient is a 64-year-old male who presents to the emerged part with a chief complaint of generalized weakness. On the differential diagnose includes but notlimited to UTI, pneumonia, pneumothorax, ACS, electrolyte abnormality. Once workup is obtained reviewed he will be reevaluated. Patient will begiven a liter of IV fluids As there is a history of heart failure which was ordered at 6:02 PM Patient's CBC was reviewed was significant for leukocytosis of 14,000, hemoglobin 15, platelet count of 130. Patient INR 1.2, PT 15. Patient sodium was 137, potassium normal at 4.1, creatinine was 1.39. Patient's troponin was 47 with a delta of 43, proBNP was noted to be 938. Patient's EKG was reviewed and showed sinus rhythm with a rate of 92 bpm. Patient's lipase was noted to be 9, urinalysis was significant for a urinary tract infection with positive nitrates 5 and leukocyte esterase greaterthan 100 white cells with 4+ bacteria he was given a gram of Rocephin which was ordered at 2033. This was sent for culture. Patient's x-ray of his hip and pelvis reviewed by myself by radiology showed no acute fracture or dislocation moderate Sarmiento bilateral hip osteoarthritis more advanced on the left where his pain is. Patient's chest x-ray reviewed by him some by radiology showed mild pulmonary vascular congestion no focal consolidation. Per nursing they suctioned a significant amount of sputum therefore I added a CT of the chest on. Patient CT chest reviewed no focal consolidations basilar subsegmental atelectasis minimal basilar bronchiectasis. Also given that respiratory is suctioningsecretions we will add on azithromycin. On reevaluation the patient he did become hypoxic he is placed on trach collar. [facility] and nursing staff try to get himup and ambulate and he desaturated to 87% Given his generalized weakness, acute hypoxic respiratory failure requiring oxygen/trach collar Aj discuss case with hospitalist for admission. Discussed case with hospitalist Dr. Sotelo who accept the patient for admission. Updated patientand at bedside they are agreeable to plan all question concerns answered. Lab Data Labs: Laboratory Results - last 24 hr 09/15/24 09/15/24 09/15/24 17:40 17:40 17:40 WBC 14.5 H RBC 4.72 Hgb 15.0 Hct 46.5 MCV 98.5 H MCH 31.8 MCHC 32.3 RDW Std Deviation 48.4 H RDW Coeff of Nick 13.2 Plt Count 130 L MPV 11.7 Immature Gran % (Auto) 0.500 Neut % (Auto) 83.0 H Lymph % (Auto) 8.1 L Greene % (Auto) 8.0 Eos % (Auto) 0.1 Baso % (Auto) 0.3 Absolute Neuts (auto) 12.1 H Absolute Lymphs (auto) 1.18 Nucleated RBC % 0 PT 15.0 H INR 1.2 APTT 28.5 Sodium Cancelled 137 Potassium Cancelled 4.1 Chloride Cancelled Carbon Dioxide Anion Gap BUN Creatinine Estim Creat Clear Calc Est GFR (MDRD) Non-Af BUN/Creatinine Ratio Glucose Lactic Acid Calcium Total Bilirubin AST ALT Alkaline Phosphatase Troponin T High Sens Troponin T Hi Sens 2 Hr NT pro BNP II Total Protein Albumin Globulin Albumin/Globulin Ratio Lipase Urine Color Urine Clarity Urine pH Ur Specific [place] Urine Protein Urine Glucose (UA) Urine Ketones Urine Occult Blood Urine Nitrite Urine Bilirubin Urine Urobilinogen Ur Leukocyte Esterase Urine RBC Urine WBC Ur Squamous Epith Cells Urine Bacteria Urine Mucus 09/15/24 09/15/24 09/15/24 17:40 17:40 17:40 WBC RBC Hgb Hct MCV MCH MCHC RDW Std Deviation RDW Coeff of Nick Plt Count MPV Immature Gran % (Auto) Neut % (Auto) Lymph % (Auto) Greene % (Auto) Eos % (Auto) Baso % (Auto) Absolute Neuts (auto) Absolute Lymphs (auto) Nucleated RBC % PT INR APTT Sodium Potassium Chloride 99 Carbon Dioxide Cancelled 24.4 Anion Gap Cancelled 13 BUN Cancelled Creatinine Estim Creat Clear Calc Est GFR (MDRD) Non-Af BUN/Creatinine Ratio Glucose Lactic Acid Calcium Total Bilirubin AST ALT Alkaline Phosphatase Troponin T High Sens Troponin T Hi Sens 2 Hr NT pro BNP II Total Protein Albumin Globulin Albumin/Globulin Ratio Lipase Urine Color Urine Clarity Urine pH Ur Specific [place] Urine Protein Urine Glucose (UA) Urine Ketones Urine Occult Blood Urine Nitrite Urine Bilirubin Urine Urobilinogen Ur Leukocyte Esterase Urine RBC Urine WBC Ur Squamous Epith Cells Urine Bacteria Urine Mucus 09/15/24 09/15/24 09/15/24 17:40 17:40 17:40 WBC RBC Hgb Hct MCV MCH MCHC RDW Std Deviation RDW Coeff of Nick Plt Count MPV Immature Gran % (Auto) Neut % (Auto) Lymph % (Auto) Greene % (Auto) Eos % (Auto) Baso % (Auto) Absolute Neuts (auto) Absolute Lymphs (auto) Nucleated RBC % PT INR APTT Sodium Potassium Chloride Carbon Dioxide Anion Gap BUN 22 H Creatinine Cancelled 1.39 H Estim Creat Clear Calc Cancelled 59.40 Est GFR (MDRD) Non-Af Cancelled BUN/Creatinine Ratio Glucose Lactic Acid Calcium Total Bilirubin AST ALT Alkaline Phosphatase Troponin T High Sens Troponin T Hi Sens 2 Hr NT pro BNP II Total Protein Albumin Globulin Albumin/Globulin Ratio Lipase Urine Color Urine Clarity Urine pH Ur Specific [place] Urine Protein Urine Glucose (UA) Urine Ketones Urine Occult Blood Urine Nitrite Urine Bilirubin Urine Urobilinogen Ur Leukocyte Esterase Urine RBC Urine WBC Ur Squamous Epith Cells Urine Bacteria Urine Mucus 09/15/24 09/15/24 09/15/24 17:40 17:40 17:40 WBC RBC Hgb Hct MCV MCH MCHC RDW Std Deviation RDW Coeff of Nick Plt Count MPV Immature Gran % (Auto) Neut % (Auto) Lymph % (Auto) Greene % (Auto) Eos % (Auto) Baso % (Auto) Absolute Neuts (auto) Absolute Lymphs (auto) Nucleated RBC % PT INR APTT Sodium Potassium Chloride Carbon Dioxide Anion Gap BUN Creatinine Estim Creat Clear Calc Est GFR (MDRD) Non-Af 56 L BUN/Creatinine Ratio Cancelled 16.1 Glucose Cancelled 109 H Lactic Acid Calcium Cancelled Total Bilirubin AST ALT Alkaline Phosphatase Troponin T High Sens Troponin T Hi Sens 2 Hr NT pro BNP II Total Protein Albumin Globulin Albumin/Globulin Ratio Lipase Urine Color Urine Clarity Urine pH Ur Specific [place] Urine Protein Urine Glucose (UA) Urine Ketones Urine Occult Blood Urine Nitrite Urine Bilirubin Urine Urobilinogen Ur Leukocyte Esterase Urine RBC Urine WBC Ur Squamous Epith Cells Urine Bacteria Urine Mucus 09/15/24 09/15/24 09/15/24 17:40 17:40 17:40 WBC RBC Hgb Hct MCV MCH MCHC RDW Std Deviation RDW Coeff of Nick Plt Count MPV Immature Gran % (Auto) Neut % (Auto) Lymph % (Auto) Greene % (Auto) Eos % (Auto) Baso % (Auto) Absolute Neuts (auto) Absolute Lymphs (auto) Nucleated RBC % PT INR APTT Sodium Potassium Chloride Carbon Dioxide Anion Gap BUN Creatinine Estim Creat Clear Calc Est GFR (MDRD) Non-Af BUN/Creatinine Ratio Glucose Lactic Acid Calcium 9.3 Total Bilirubin Cancelled 1.17 AST Cancelled 34 ALT Cancelled Alkaline Phosphatase Troponin T High Sens Troponin T Hi Sens 2 Hr NT pro BNP II Total Protein Albumin Globulin Albumin/Globulin Ratio Lipase Urine Color Urine Clarity Urine pH Ur Specific [place] Urine Protein Urine Glucose (UA) Urine Ketones Urine Occult Blood Urine Nitrite Urine Bilirubin Urine Urobilinogen Ur Leukocyte Esterase Urine RBC Urine WBC Ur Squamous Epith Cells Urine Bacteria Urine Mucus 09/15/24 09/15/24 09/15/24 17:40 17:40 17:40 WBC RBC Hgb Hct MCV MCH MCHC RDW Std Deviation RDW Coeff of Nick Plt Count MPV Immature Gran % (Auto) Neut % (Auto) Lymph % (Auto) Greene % (Auto) Eos % (Auto) Baso % (Auto) Absolute Neuts (auto) Absolute Lymphs (auto) Nucleated RBC % PT INR APTT Sodium Potassium Chloride Carbon Dioxide Anion Gap BUN Creatinine Estim Creat Clear Calc Est GFR (MDRD) Non-Af BUN/Creatinine Ratio Glucose Lactic Acid Calcium Total Bilirubin AST ALT 6 Alkaline Phosphatase Cancelled 72 Troponin T High Sens 47 H Troponin T Hi Sens 2 Hr NT pro BNP II 938 H Cancelled Total Protein Cancelled Albumin Globulin Albumin/Globulin Ratio Lipase Urine Color Urine Clarity Urine pH Ur Specific [place] Urine Protein Urine Glucose (UA) Urine Ketones Urine Occult Blood Urine Nitrite Urine Bilirubin Urine Urobilinogen Ur Leukocyte Esterase Urine RBC Urine WBC Ur Squamous Epith Cells Urine Bacteria Urine Mucus 09/15/24 09/15/24 09/15/24 17:40 17:40 17:40 WBC RBC Hgb Hct MCV MCH MCHC RDW Std Deviation RDW Coeff of Nick Plt Count MPV Immature Gran % (Auto) Neut % (Auto) Lymph % (Auto) Greene % (Auto) Eos % (Auto) Baso % (Auto) Absolute Neuts (auto) Absolute Lymphs (auto) Nucleated RBC % PT INR APTT Sodium Potassium Chloride Carbon Dioxide Anion Gap BUN Creatinine Estim Creat Clear Calc Est GFR (MDRD) Non-Af BUN/Creatinine Ratio Glucose Lactic Acid Calcium Total Bilirubin AST ALT Alkaline Phosphatase Troponin T High Sens Troponin T Hi Sens 2 Hr NT pro BNP II Total Protein 7.4 Albumin Cancelled 4.0 Globulin Cancelled 3.4 Albumin/Globulin Ratio Cancelled Lipase Urine Color Urine Clarity Urine pH Ur Specific [place] Urine Protein Urine Glucose (UA) Urine Ketones Urine Occult Blood Urine Nitrite Urine Bilirubin Urine Urobilinogen Ur Leukocyte Esterase Urine RBC Urine WBC Ur Squamous Epith Cells Urine Bacteria Urine Mucus 09/15/24 09/15/24 09/15/24 17:40 17:40 17:41 WBC RBC Hgb Hct MCV MCH MCHC RDW Std Deviation RDW Coeff of Nick Plt Count MPV Immature Gran % (Auto) Neut % (Auto) Lymph % (Auto) Greene % (Auto) Eos % (Auto) Baso % (Auto) Absolute Neuts (auto) Absolute Lymphs (auto) Nucleated RBC % PT INR APTT Sodium Potassium Chloride Carbon Dioxide Anion Gap BUN Creatinine Estim Creat Clear Calc Est GFR (MDRD) Non-Af BUN/Creatinine Ratio Glucose Lactic Acid 1.1 Calcium Total Bilirubin AST ALT Alkaline Phosphatase Troponin T High Sens Troponin T Hi Sens 2 Hr NT pro BNP II Total Protein Albumin Globulin Albumin/Globulin Ratio 1.2 Lipase Cancelled 9 L Urine Color Urine Clarity Urine pH Ur Specific [place] Urine Protein Urine Glucose (UA) Urine Ketones Urine Occult Blood Urine Nitrite Urine Bilirubin Urine Urobilinogen Ur Leukocyte Esterase Urine RBC Urine WBC Ur Squamous Epith Cells Urine Bacteria Urine Mucus 09/15/24 09/15/24 19:00 19:50 WBC RBC Hgb Hct MCV MCH MCHC RDW Std Deviation RDW Coeff of Nick Plt Count MPV Immature Gran % (Auto) Neut % (Auto) Lymph % (Auto) Greene % (Auto) Eos % (Auto) Baso % (Auto) Absolute Neuts (auto) Absolute Lymphs (auto) Nucleated RBC % PT INR APTT Sodium Potassium Chloride Carbon Dioxide Anion Gap BUN Creatinine Estim Creat Clear Calc Est GFR (MDRD) Non-Af BUN/Creatinine Ratio Glucose Lactic Acid Calcium Total Bilirubin AST ALT Alkaline Phosphatase Troponin T High Sens Troponin T Hi Sens 2 Hr 43 H NT pro BNP II Total Protein Albumin Globulin Albumin/Globulin Ratio Lipase Urine Color Yellow Urine Clarity Sl. Cloudy Urine pH 6.0 Ur Specific [place] 1.015 Urine Protein 30 H Urine Glucose (UA) Normal Urine Ketones 5 H Urine Occult Blood 25 H Urine Nitrite Positive H Urine Bilirubin Negative Urine Urobilinogen Normal Ur Leukocyte Esterase 500 H Urine RBC 0-5 SEEN Urine WBC >100 SEEN Ur Squamous Epith Cells 0-5 SEEN Urine Bacteria 4+ Urine Mucus 0 SEEN Radiography Diagnostic Testing: Clinical Impression(s) from Imaging Studies Brain CT 09/15/24 17:59 IMPRESSION: No acute intracranial abnormality. Reading Location: [facility] Chest X-Ray 09/15/24 18:20 IMPRESSION: Mild pulmonary vascular congestion. No focal consolidation. Reading Location: [facility] Hip/Pelvis X-Ray 09/15/24 18:20 IMPRESSION: 1. No acute fracture or dislocation. 2. Moderate-advanced bilateral hip osteoarthritis, more advanced on the left. Reading Location: [facility] Chest CT 09/15/24 19:12 IMPRESSION: No focal consolidations. Bibasilar subsegmental atelectasis. Minimal bibasilar bronchiectasis. Reading Location: [facility] Discharge Plan Triage Chief Complaint: Fatigue ED Provider: Jose Oliveira Dx/Rx/DC Orders Clinical Impression: Acute hypoxic respiratory failure, CAD (coronary artery disease), Parkinson's disease, (HFpEF) heart failure with preserved ejection fraction, Generalized weakness, Urinary tract infection Prescriptions: No Action tamsulosin 0.4 mg capsule 0.4 mg PO DAILY budesonide 1 mg/2 mL suspension for nebulization 1 mg inhalation BID Qty: 120 11RF formoterol fumarate [Perforomist] 20 mcg/2 mL solution for nebulization 2 ml inhalation BID Qty: 120 3RF Yupelri 175 mcg/3 mL solution for nebulization 175 mcg inhalation QDAY Qty: 90 3RF (DME) nebulizer kits See Rx Instructions .ROUTE .MEDSUPPLY Qty: 1 11RF Rx Instructions: As directed guaifenesin [Mucinex] 1,200 mg tablet extended release 12hr 1,200 mg PO .QD Qty: 30 11RF carbidopa-levodopa 25-100 mg tablet 2 tab PO TID Qty: 540 2RF fludrocortisone 0.1 mg tablet 0.2 mg PO QAM Qty: 180 1RF ropinirole 1 mg tablet 1 mg PO TID Qty: 90 5RF atropine 1 % drops See Rx Instructions buccal DAILY Qty: 15 6RF Rx Instructions: Take 1 to 2 drops buccally daily (DME) Motorized scooter See Rx Instructions .Route .MEDSUPPLY Qty: 1 0RF Rx Instructions: As directed prednisone 10 mg tablet 10 mg PO QDAY Qty: 30 0RF Rx Instructions: take 4 tabs for three days, then 3 tabs for three days, then 2 tabs for three days, then 1 tab for 3 days levothyroxine [Synthroid] 150 mcg tablet 150 mcg PO DAILY aspirin [Luis Alberto Chewable Aspirin] 81 mg tablet,chewable 81 mg PO DAILY Patient Comments: 1 tablet by mouth once a day furosemide [Lasix] 40 mg tablet 20 mg PO 1200 PRN (Reason: Leg swelling) 30 Days Qty: 0 0RF Rx Instructions: Hold for SBP less than 100 mmHg nitrofurantoin monohyd/m-cryst 100 mg capsule 100 mg PO MOWEFR (DME) Handicap placard See Rx Instructions .Route .MEDSUPPLY Qty: 1 0RF Rx Instructions: Expiration: 10/01/2025 clopidogrel 75 mg tablet 75 mg PO DAILY Qty: 90 3RF potassium chloride 20 mEq tablet extended release 20 meq PO DAILY Qty: 90 3RF rosuvastatin 5 mg tablet 5 mg PO DAILY Qty: 90 3RF ipratropium-albuterol 0.5 mg-3 mg(2.5 mg base)/3 mL solution for nebulization 3 ml inhalation Q4H PRN PRN (Reason: SOB &/OR WHEEZING) Qty: 360 11RF Primary Care Provider: Biju Lobo Referrals: Biju Lobo DO [Primary Care Provider] - Print Language: Tunisian Disposition Disposition: Acute Care Hospital [facility] What to do if you have Problems For any increased pain, shortness of breath, bleeding, nausea or vomiting, chestpain, or any unexpected problems, contact your Primary Care Provider. Call [facility] ([phone]) or report tothe closest Emergency Room. Call 911 if necessary. 09/15/24 2303 Cosigner Signature (if applicable): CC: Dr. Biju Lobo DO ~ Signed [facility]07-29-2025 Radiology Diagnostic study note [facility] Imaging Services [address] [place] [address] Chest without Contrast MR#: [id number] Acct: [id number] Name: FREDDIE COLE Rep #: [id number] : 1960 M 64 From: Domonique Villatoro MD PCP: Dr. Biju Lobo DO Status: REG ER Study:Chest without Contrast Date of Exam: 09/15/24 Exam# [id number] Ordering Dr: Graciela Oliveira DO PROCEDURE: CHEST WITHOUT CONTRAST 09/15/2024 REASON FOR EXAM: COUGH WEAKNESS TECHNIQUE: Chest CT without contrast. Coronal and Sagittal reconstruction series were provided. One or more dose reduction techniques were used (e.g., Automated exposure control, adjustment of the mA and/or kV according to patient size, use of iterative reconstruction technique RADIATION DOSE SUMMARY: DLP: 456 mGycm COMPARISON: 08/04/24 FINDINGS: Tracheostomy tube noted. LUNGS AND PLEURA: No focal consolidation. Bibasilar subsegmental atelectasis. Minimal bibasilar bronchiectasis. No pleural effusion. No pneumothorax. No pleural thickening. No nodules or masses. Scattered tiny calcified granulomas. MEDIASTINUM: No lymphadenopathy or mass. The heart shows no acute findings. Extensive coronary atherosclerosis. The aorta shows no acute findings. The pulmonary trunk and branches of the vessels in the mediastinum are within normal limits. Mild stable gaseous dilatation of the esophagus, probablyreflux. SUPRACLAVICULAR AND AXILLARY: No abnormalities seen in these regions. No mass or significant lymphadenopathy. UPPER ABDOMEN: 1 x 1 cm calcified lesion within the spleen. Small hiatal hernia. BONES AND SOFT TISSUES: The bony structures show no significant acute findings. No focal bony mass lesions noted. The subcutaneous soft tissues are unremarkable. CT/Chest without Contrast IMPRESSION: No focal consolidations. Bibasilar subsegmental atelectasis. Minimal bibasilar bronchiectasis. Reading Location: [facility] CC: Dr. Biju Lobo DO; Dr. Jose Oliveira DO ~ Logistics Associate: Signed [facility]07-29-2025 Radiology Diagnostic study note [facility] Imaging Services [address] [place], [place] [id number] Hip uni 4+ views with Pelvis MR#: [id number] Acct: [id number] Name: FREDDIE COLE Rep #: [id number] : 1960 M 64 From: Alejandro Joshi MD PCP: Dr. Biju Lobo DO Status: REG ER Study:Hip uni 4+ views with Pelvis Date of Ex am: 09/15/24 Exam# [id number] Ordering Dr: Graciela Oliveira DO PROCEDURE: HIP UNI 4+ VIEWS WITH PELVIS 09/15/2024 REASON FOR EXAM: PAIN TECHNIQUE: Pelvis and left hip radiographs: AP and lateral/frogleg views COMPARISON: None. FINDINGS: No acute fracture or dislocation. Bilateral hip joints are intact with moderate- advanced degenerative arthrosis, characterized by joint space narrowing, subchondral sclerosis and marginal osteophytosis. No aggressive osseous lytic or blastic lesion. Degenerative changes of the lower lumbosacral spine. RAD/Hip uni 4+ views with Pelvis IMPRESSION: 1. No acute fracture or dislocation. 2. Moderate-advanced bilateral hip osteoarthritis, more advanced on the left. Reading Location: [id number] CC: Dr. Biju Lobo DO; Dr. Jose Oliveira DO ~ Logistics Associate: Signed [facility]07-29-2025 Radiology Diagnostic study note [facility] Imaging Services [address] [place], [place] [id number] Brain/Head without Contrast MR#: [id number] Acct: [id number] Name: FREDDIE COLE Rep #: [id number] : 1960 M 64 From: Alejandro Joshi MD PCP: Dr. Biju Lobo DO Status: REG ER Study:Brain/Head without Contrast Date of Exa m: 09/15/24 Exam# [id number] Ordering Dr: Graciela Oliveira DO PROCEDURE: BRAIN/HEAD WITHOUT CONTRAST 09/15/2024 REASON FOR EXAM: AMS TECHNIQUE: BRAIN/HEAD WITHOUT CONTRAST Coronal and Sagittal reconstruction series were provided. One or more dose reduction techniques were used (e.g., Automated exposure control, adjustment of the mA and/or kV according to patient size, use of iterative reconstruction technique. RADIATION DOSE SUMMARY: CTDlvol: 44.99 mGy DLP: 846.73 mGycm COMPARISON: 08/13/2023 FINDINGS: No acute intracranial hemorrhage, extra-axial collection, mass effect or evidence of acute infarct. Ventricular and sulcal size and configuration are within normal limits for age. Orbital contents are unremarkable. Atherosclerotic vascular calcifications. Intact skull base and calvarium. Clear paranasal sinuses and mastoid air cells. CT/Brain/Head without Contrast IMPRESSION: No acute intracranial abnormality. Reading Location: [facility] CC: Dr. Biju Lobo DO; Dr. Jose Oliveira DO ~ Logistics Associate: Signed [facility]07-29-2025 Radiology Diagnostic study note [facility] Imaging Services [address] [place] [address] [id number] Chest PA and Lateral MR#: [id number] Acct: [id number] Name: FREDDIE COLE Rep #: [id number] : 1960 M 64 From: Domonique Villatoro MD PCP: Dr. Biju Lobo DO Status: REG ER Study:Chest PA and Lateral Date of Exam: 09/15/24 Exam# [id number] Ordering Dr: Graciela Oliveira DO PROCEDURE: CHEST PA AND LATERAL 09/15/2024 REASON FOR EXAM: COUGH TECHNIQUE: CHEST PA AND LATERAL COMPARISON: 03/08/24 FINDINGS: Tracheostomy tube is noted. Mild pulmonary vascular congestion. No focal consolidation. Left base subsegmental atelectasis. No pleural effusion or pneumothorax. Cardiac silhouette is within normal limits. No acute fractures. RAD/Chest PA and Lateral IMPRESSION: Mild pulmonary vascular congestion. No focal consolidation. Reading Location: [facility] CC: Dr. Biju Lobo, ; Dr. Jose Oliveira DO ~ Logistics Associate: Signed [facility]07-21-2025 History and physical note Author Jono Doty [facility] Note Date/Time September 07, 2024 6:51 pm [facility] Pulmonary Rehab Reports [address] [place] [address] CO - History & Physical MR#: [id number] Acct: [id number] Name: FREDDIE COLE Rep #:[id number] : [...] Low Dose Aspirin) 81 mg PO DAILY [facility] 01/24/22 tamsulosin 0.4 mg capsule 0.4 mg PO DAILY prostate 05/17/22 Handicap placard #1 ea 10/01/22 budesonide 1 mg/2 mL suspension for nebulization 1 mg (2 mL) inhalation BID breathing #120 mL 10/17/23 nitrofurantoin monohydrate/macrocrystals 100 mg capsule 100 mg PO MOWEFR wnluflm29/02/24 furosemide 40 mg tablet (Lasix) 20 mg [...] Do you have a Healthcare Power of Director Alumni Relations?: Yes Living Will: Yes Advance Directives Information [...] endurance andmodality and progress per protocol. 09/07/24 8831<Electronically signed by Pj Almanza MD> Cosigner Signature: Date Pj Almanza MD CC: ~ Signed [facility] Work Phone: 1(381) 757-598807-21-2025 History and physical note [facility] Pulmonary Rehab Reports [address] [place] [address] CO - History & Physical MR#: [id number] Acct: [id number] Name: FREDDIE COLE Rep #:[id number] : [...] 100 mg capsule 100 mg PO MOWEFR camesbm60/02/24 furosemide 40 mg tablet (Lasix) 20 mg [...] Do you have a Healthcare Power of Director Alumni Relations?: Yes Living Will: Yes Advance Directives Information [...] 1534 er BS, RVT> Date _ Jono Perkins BS, RVT Outcome assessment reviewed. Exercise plan [...] Date Pj Almanza MD CC: ~ Signed [facility]06-18-2025 Radiology Diagnostic study note [facility] Imaging Services [address] [place], [place] [id number] Chest without Contrast MR#: [id number] Acct: [id number] Name: FREDDIE COLE Rep #: [id number] : 1960 M 64 From: Abb as Bing CUNHA PCP: Dr. Biju Lobo, DO Status: REG CLI Study:Chest without Contrast Date of Exam: 08/04/24 Exam# [id number] Ordering Dr: Tita Wick FRAME CARVER SPINDLE-C PROCEDURE: CHEST WITHOUT CONTRAST 08/04/2024 REASON FOR [...] probably reflux. Mild diffuse spondylosis. [facility] CC: Dr. Biju Lobo DO; Tita Wick NP ~ Logistics Associate: Signed [facility]05-28-2025 Progress note Author FRAME CARVER SPINDLE Tita Wick [facility] Services Note Date/Time July 15, 2024 2:38p m [facility] Pulmonary Medicine of [address] [place] [address] OFFICE VISIT Date of Service: 07/15/24 MR#: [id number] Acct: [id number] Name: FREDDIE COLE Rep #: [id number] : 1960 Provider: iTta jaramillo NP Age/Sex: 64/M Location: [facility].PM[facility] Status: Signed Assessment and Plan Assessment and [...] month. This patient was last hospitalized at [facility] from August 12 through August 15, [...] 7am and 5pm, Yupelri 10:30am. With the Sp[employer] program he has been able to obtain [...] Reasons: 6-8 wk f u Chief Complaint: Red [employer] Linux Administrator Required: No Accompanied by: Is patient in pain?: No Allergies vibegron (From [employer]) Allergy (Severe, Verified 07/15/24 13:50) Rash Medications [...] QDAY #90 04/15/24 07/15/24 Rx for nebulization (Drake) mL ipratropium 0.5 mg-albuterol 3 mg 3 [...] you fallen in the past year?: Yes [facility] Medical History Transient hypotension Acute dyspnea Acute [...] year?: Yes 07/15/242214 <Electronically signed by Tita quezada NP-C> Date _ Tita PAULC Cosigner Signature: Date (if applicable) CC: ~ [facility] [employer] Work Phone: 1(728) 249-275705-28-2025 Evaluation note* Diagnosis Onset Date Resolution Status Admit Date Asthma-COPD overlap syndrome chronic July 15, 2024 1:42pm MARYJO (obstructive sleep apnea) inacti ve July 15, 2024 1:42pm Shy-Drager syndrome chronic July 23, 2024 11:31am Carotid artery, internal, occlusion inactive July 23, 2024 11:31am Dysphagia inactive July 23, 2024 11:31am Parkinson's disease inactive July 23, 2024 11:31am Asthma-COPD overlap syndrome chronic September 02, 2024 11:11am Acute cystitis without hematuria acu te September 15, 2024 11:30pm Complicated UTI (urinary tra ct infection) acute September 15, 2024 11:30pm Acute hypoxic respiratory failure re solved September 15, 2024 11:30pm Acute on chronic urinary retention resolved September 15, 2024 11:30pm MICHAEL (acute kidney injury) resolved September 15, 2024 11:30pm Elevated troponin resolved September 152024 11:30pm Fatigue resolved September 15 11:30pm Generalized weakness resolved September 15, 2024 11:30pm Leukocytosis resolved September 15, 11:30pm (HFpEF) heart failure with preserved ejection fraction inactive September 15, 2024 11:30pm BPH (benign prostatic hyperplasia) inactive September 15, 2024 11:30pm CAD (coronary artery disease) inacti ve September 15, 2024 11:30pm Obesity (BMI 30.0-34.9) inactive [facility] 2024 11:30pm MARYJO (obstructive sleep apnea) inacti ve September 15, 2024 11:30pm Parkinson's disease inactive September 15, 2024 11:30pm Thrombocytopenia inactive August 11:30pm Urinary tract infection deleted [facility] 2024 11:30pm [facility] Work Phone: 1(443) 941-340705-28-2025 Evaluation note* Diagnosis Onset Date Resolution Status Admit Date Asthma-COPD overlap syndrome chronic July 15, 2024 1:42pm MARYJO (obstructive sleep apnea) inacti ve July 15, 2024 1:42pm Shy-Drager syndrome chronic July 23, 2024 11:31am Carotid artery, internal, occlusion inactive July 23, 2024 11:31am Dysphagia inactive July 23, 2024 11:31am Parkinson's disease inactive July 23, 2024 11:31am Asthma-COPD overlap syndrome chronic September 02, 2024 11:11am Acute cystitis without hematuria acu te September 15, 2024 11:30pm Complicated UTI (urinary tra ct infection) acute September 15, 2024 11:30pm Acute hypoxic respiratory failure resolved September 15, 2024 11:30pm Acute on chronic urinary retention resolved September 15, 2024 11:30pm MICHAEL (acute kidney injury) resolved September 15, 2024 11:30pm Elevated troponin resolved September 152024 11:30pm Fatigue resolved September 15 11:30pm Generalized weakness resolved September 15, 2024 11:30pm Leukocytosis resolved September 15, 11:30pm (HFpEF) heart failure with preserved ejection fraction inactive September 15, 2024 11:30pm BPH (benign prostatic hyperplasia) inactive September 15, 2024 11:30pm CAD (coronary artery disease) inacti ve September 15, 2024 11:30pm Obesity (BMI 30.0-34.9) inactive [facility] 2024 11:30pm MARYJO (obstructive sleep apnea) inacti ve September 15, 2024 11:30pm Parkinson's disease inactive September 15, 2024 11:30pm Thrombocytopenia inactive August 11:30pm Urinary tract infection deleted [facility] 2024 11:30pm Carotid artery disease chronic [facility] 2024 11:21am Hyperlipidemia chronic September 11:21am 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, chronic October 08, 2024 11:21am Hypertension resolved October 08, 2024 11:21am [facility] Work Phone: 1(959) 864-701105-28-2025 Evaluation note* Diagnosis Onset Date Resolution Status Admit Date Asthma-COPD overlap syndrome chronic July 15, 2024 1:42pm MARYJO (obstructive sleep apnea) inacti ve July 15, 2024 1:42pm Shy-Drager syndrome chronic July 23, 2024 11:31am Carotid artery, internal, occlusion inactive July 23, 2024 11:31am Dysphagia inactive July 23, 2024 11:31am Parkinson's disease inactive July 23, 2024 11:31am Asthma-COPD overlap syndrome chronic September 02, 2024 11:11am Acute cystitis without hematuria acu te September 15, 2024 11:30pm Complicated UTI (urinary tra ct infection) acute September 15, 2024 11:30pm Acute hypoxic respiratory failure resolved September 15, 2024 11:30pm Acute on chronic urinary retention resolved September 15, 2024 11:30pm MICHAEL (acute kidney injury) resolved September 15, 2024 11:30pm Elevated troponin resolved September 152024 11:30pm Fatigue resolved September 15 11:30pm Generalized weakness resolved September 15, 2024 11:30pm Leukocytosis resolved September 15, 025 11:30pm (HFpEF) heart failure with preserved ejection fraction inactive September 15, 2024 11:30pm BPH (benign prostatic hyperplasia) inactive September 15, 2024 11:30pm CAD (coronary artery disease) inacti ve September 15, 2024 11:30pm Obesity (BMI 30.0-34.9) inactive [facility] 2024 11:30pm MARYJO (obstructive sleep apnea) inacti ve September 15, 2024 11:30pm Parkinson's disease inactive September 15, 2024 11:30pm Thrombocytopenia inactive August 11:30pm Urinary tract infection deleted [facility] 2024 11:30pm Carotid artery disease chronic [facility] 2024 11:21am Hyperlipidemia chronic September 11:21am Hypertension chronic October 08, 2024 11:21am 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, chronic October 08, 2024 11:21am [facility] Work Phone: 1(587) 856-993305-28-2025 Progress [facility] Pulmonary Medicine of [address] [place] [address] OFFICE VISIT Date of Service: 07/15/24 MR#: [id number] Acct: [id number] Name: FREDDIE COLE Rep #: [id number] : 1960 Provider: Tita jaramillo NP Age/Sex: 64/M Location: [facility].PMW Status: Signed Assessment and Plan Assessment and [...] month. This patient was last hospitalized at [facility] from August 12 through August 15, [...] 7am and 5pm, Yupelri 10:30am. With the Sponto program he has been able to obtain [...] Reasons: 6-8 wk f u Chief Complaint: [employer] Linux Administrator Required: No Accompanied by: Is patient in pain?: No Allergies vibegron (From [employer]) Allergy (Severe, Verified 07/15/24 13:50) Rash Medications ?Medication ?Instructions ?Recorded ?Confirmed ?Type levothyroxine 150 mcg tablet 150 mcg PO DAILY thyroid 01/13/21 07/15/24 History (Synthroid) aspirin 81 mg chewable tablet 81 mg PO DAILY heart hea lth 01/24/22 07/15/24 History (Luis Albreto Chewable Low Dose Aspirin) tamsulosin 0.4 mg [...] you fallen in the past year?: Yes [facility] Transient hypotension Acute dyspnea Acute [...] the past year?: Yes 07/15/24 2215 ner FRAME CARVER SPINDLE-C> Date _ Tita Wick FRAME CAR[employer] SPINDLE-C Cosigner Signature: Date (if applicable) CC: ~ [facility]05-23-2025 Procedure note [facility] Speech Pathology [address] [place] [address] Modified Barium Swallow Study MR#: [id number] Acct: [id number] Name: FREDDIE COLE Rep #:[id number] : 1960 64 From: Lucy tucker M.A. [facility]-DELICATESSEN DEPARTMENT MANAGER Modified Barium Swallow Patient Information Study Date: [...] Status Active ST Patient: Active Contact Information [facility] Speech Therapy:: Lucy Kumar M.A. DELICATESSEN DEPARTMENT MANAGER Speech-Language Pathologist [facility] [address] [facility] [place] [address] [email or web address] [phone] 07/10/24 1401 buck Freedman CCC-DELICATESSEN DEPARTMENT MANAGER> Date/Time Lucy Kumar M.A., CCC-DELICATESSEN DEPARTMENT MANAGER Co-Signature Required for all Medicare patients Date/Time Co-Signature CC: ~ [facility]05-16-2025 Procedure notey [facility] Pulmonary Services/Neurology [address] [place] [address] MR#: [id number] Acct: [id number] Name: FREDDIE COLE Rep #:[id number] : 1960 64 From: Richard Munoz DO Referring Dr: Tita Wick FRAME CARVER SPINDLE-C Status: REG CLI Location: PSN Date: Sex: M C PSN 6 Minute Walk Test 6 Minute Walk Test 6 Minute Walk Test: 6 Minute Walk Test PSN:6-Minute Walk Test Start: 07/02/24 12:50 Freq: Status: Active Protocol: RESP.6MINW Document 07/02/24 12:51 LARISA (Rec: 07/02/24 12:54 LARISA [id number]) 6 Minute Walk Test Date Performed 07/02/24 [...] Date Dictated: 07/03/24 1112 Date Transcribed: 07/03/241111 Logistics Associate: Dr. Richard Munoz DO Signed [facility]05-07-2025 History of Present illness Narrative* Hemant [...] mass or lesion. 6 Shiley trach changed today along with Pretty Gracia [...] TUBE TRACH CUFFLESS 7.5MM SHILEY FLEX [id number] documented in this [facility]04-08-2025 Evaluation note * Diagnosis Onset Date [...] 1:31am Dysphagia inactive July 23, 2024 11:31am [facility] Work Phone: [phone]) [phone] Evaluation note* Diagnosis Onset Date Resolution Status [...] overlap syndrome chronic September 02, 2024 11:11am [facility] Work Phone: 1(229) 499-882304-08-2025 Evaluation note* Diagnosis Onset Date Resolution Status [...] artery, internal, occlusion inactive July 23, 2024 11:31am Dysphagia inactive July 23, 2024 11:31am Asthma-COPD overlap syndrome chronic September 02, 2024 11:11am Acute cystitis without hematuria acu te September 15, 2024 11:30pm Acute hypoxic respiratory failure ac navajo September 15, 2024 11:30pm Acute on chronic urinary retention acute September 15, 2024 11:30pm MICHAEL (acute kidney injury) acute September 15, 2024 11:30pm BPH (benign prostatic hyperplasia) acute September 15, 2024 11:30pm Elevated troponin acute September 152024 11:30pm Fatigue acute September 15 11:30pm Generalized weakness acute September 15, 2024 11:30pm Obesity (BMI 30.0-34.9) acute [facility] 2024 11:30pm Thrombocytopenia acute August 11:30pm Urinary tract infection acute [facility] 2024 11:30pm (HFpEF) heart failure with preserved ejection fraction chronic September 15, 2024 11:30pm CAD (coronary artery disease) chroni c September 15, 2024 11:30pm MARYJO (obstructive sleep apnea) chroni c September 15, 2024 11:30pm Parkinson's disease chronic September 15, 2024 11:30pm [facility] Work Phone: 1([phone]) 905-278804-08-2025 Evaluation note* Diagnosis Onset Date Resolution Status [...] artery, internal, occlusion inactive July 23, 2024 11:31am Dysphagia inactive July 23, 2024 11:31am Asthma-COPD overlap syndrome chronic September 02, 2024 11:11am Acute cystitis without hematuria acu te September 15, 2024 11:30pm Acute hypoxic respiratory failure ac navajo September 15, 2024 11:30pm Acute on chronic urinary retention acute September 15, 2024 11:30pm MICHAEL (acute kidney injury) acute September 15, 2024 11:30pm BPH (benign prostatic hyperplasia) acute September 15, 2024 11:30pm Complicated UTI (urinary tra ct infection) acute September 15, 2024 11:30pm Elevated troponin acute September 152024 11:30pm Fatigue acute September 15 11:30pm Generalized weakness acute September 15, 2024 11:30pm Leukocytosis acute September 15, 025 11:30pm Obesity (BMI 30.0-34.9) acute [facility]2024 11:30pm Thrombocytopenia acute August 11:30pm Urinary tract infection acute [facility] 2024 11:30pm (HFpEF) heart failure with preserved ejection fraction chronic September 15, 2024 11:30pm CAD (coronary artery disease) chroni c September 15, 2024 11:30pm MARYJO (obstructive sleep apnea) chroni c September 15, 2024 11:30pm Parkinson's disease chronic September 15, 2024 11:30pm [facility] Work Phone: 1(809) 374-701502-26-2025 Evaluation note* Diagnosis Onset Date Resolution Status [...] occlusion inactive July 23, 2024 1 1:31am [facility] Work Phone: 1(478) 524-372002-12-2025 Evaluation note* Diagnosis Onset Date Resolution Status Admit Date CAD (coronary artery disease) chroni c April 01, 2024 1:48pm Carotid artery disease chronic Fe bruary 2024 1:48pm COPD (chronic obstructive pulmonary disease) chronic March 1:48pm Hyperlipidemia chronic March 212024 1:48pm MARYJO (obstructive sleep apnea) chroni c April 01, 2024 1:48pm Shy-Drager syndrome chronic Febru batsheva2024 1:48pm 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, chronic April [...] apnea) chroni c July 15, 2024 1:42pm [facility] Work Phone: [phone] History of Present illness Narrative* Hemant Galvan [...] trachea without mass or lesion. 6 Angeles trach changed today. Stoma patent. Thyroid: No [...] TUBE TRACH CUFFLESS 7.5MM SHILEY FLEX [id number] documented [facility] this [facility] Evaluation note * Diagnosis Onset Date Resolution Status Admit Date Parkinson's disease chronic 2024 11:36am 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 Carotid artery, internal, occlusion inactive March 16 11:36am CAD (coronary artery disease) chroni c April 01, 2024 1:48pm Carotid artery disease chronic 2024 1:48pm COPD (chronic obstructive pulmonary disease) chronic March 1:48pm Hyperlipidemia chronic March 212024 1:48pm MARYJO (obstructive sleep apnea) chroni c April 01, 2024 1:48pm 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, chronic April 01, 2024 1:48pm Hypertension resolved March 1:48pm Asthma-COPD overlap syndrome chronic April 15, 2024 11:10am MARYJO (obstructive sleep apnea) chroni c April 15, 2024 11:10am [facility] Work Phone: 1([phone]) 988-863601-27-2025 Evaluation note* Diagnosis Onset Date Resolution Status [...] overlap syndrome chronic April 15, 2024 11:10am MRAYJO (obstructive sleep apnea) chroni c April 15, 2024 11:10am Dysphagia acute May 26 1:00pm Parkinson's disease chronic May 26, 2024 1:00pm Shy-Drager syndrome chronic May 26, 2024 1:00pm Carotid artery, internal, occlusion inactive May 26, 2024 1:00pm Asthma-COPD overlap syndrome chronic May 27, 2024 1:45pm MARYJO (obstructive sleep apnea) chroni c May 27, 2024 1:45pm [facility] Work Phone: 1(187) 541-166511-08-2024 History of Present illness Narrative* Hemant Galvan [...] change at next visit. [facility]U [facility] NoteAcceptable Specimen? Acceptable Specimen(Evaluation not needed) Gram Stain 2+ White Blood Cells 2+ Gram positive cocci in chains and clusters Rare Gram positive rods Rare Yeast Like OrganismsWKettering Health DaytonComment on above:Performed By: #### M100.2400, M100.1999 ####[facility] [address] [place], [address](272) 305-717409-14-2024 [facility]09-04-2024 [facility]08-29-2024 History of Present illness Narrative* Rj Trammell MD - 10/17/2023 9:30 AM EDT Subjective Patient ID: Freddie oCle is a 63 y.o. male. HPI Patient [...] Discussed patient doing CIC documented in this [facility] Work Phone: 1(778) 188-468108-14-2024 History of Present illness Narrative* Hemant Galvan [...] at next visit. documented in this encounterOSU [facility]07-20-20[facility] Nurse Note* Nursing Notes - Reyna Baltazar RN - 09/07/2023 11:16 AM EDT VSS, Aox4, patient denies pain, tolerating diet per baseline. Tracheostomy in place, no signs/symptoms of distress, respiratory treatment delivered per RT prior to discharge. Discharge instructions reviewed at bedside with patient and family, faxed ahead to [facility]. Attempted to call report to receiving facility with no answer, left message on secure voicemail with callback number. All questions/concerns addressed with patient and family, IV removed with no complications. Patient discharged via EMS with all medical supplies, personal belongings taken by family. Reyna Baltazar RN [facility]07-20-2024 Miscellaneous Notes* Nursing Notes - Reyna Baltazar RN - 09/07/2023 11:16 AM EDT VSS, Aox4, patient denies pain, tolerating diet per baseline. Tracheostomy in place, no signs/symptoms of distress, respiratory treatment delivered per RT prior to discharge. Discharge instructions reviewed at bedside with patient and family, faxed ahead to [facility]. Attempted to call report to receiving [...] 09/02/2023 6:47 PM EDT On admission to [facility], from PACU a dual RN initial assessment [...] PROCEDURE: 1. Tracheostomy SURGEON: Hemant Galvan MD MEAT STUFFER: Efe Mcnulty MD ANESTHESIA: General ESTIMATED BLOOD [...] mechanical ventilatory circuit. Proper tidal volumes and RR2dyxfvl were confirmed. The tracheostomy was then secured [...] - 09/02/2023 3:52 PM EDT Freddie Cole ([id number]) PRE OPERATIVE DIAGNOSIS Bilateral vocal fold paralysis [J38.02] POST OPERATIVE DIAGNOSIS Bilateral vocal fold paralysis [J38.02] PROCEDURE PERFORMED Procedure(s) (LRB): TRACHEOSTOMY (Midline) PRIMARY CLOSURE N/A INTRAOPERATIVE FINDINGS Prior scar tissue, 6 cuffed Shiley placed SURGEON Surgeons and Role: * Hemant Galvan MD - Primary ANESTHESIOLOGIST Anesthesiologist: Ning Wing MD ROUND KILN DRAWER: Lev Chavez APRN-ROUND KILN DRAWER SURGICAL STAFF Bin Packer: Ondina Garza RN; Biju Govea RN Resident Assisting: Efe Mcnulty MD Product Development Worker: Elidia Phillips COMPLICATIONS None ESTIMATED BLOOD LOSS [...] flap. Trach change POD4 to 6UN75R Angeles. Diet/DELICATESSEN DEPARTMENT MANAGER: ADAT, DELICATESSEN DEPARTMENT MANAGER only if concerns Antibiotics: periop Activity: routine [...] scheduled Efe Mcnulty MD documented in this encounterOSU [facility]07-20-2024 History of Present illness Narrative* Hemant Galvan [...] in 4 weeks. Hemant Galvan M.D. Residency Mining Engineering Technologist Department of Otolaryngology-Head and Neck Surgery * [...] Shiley cuffless trach in place and patent, Passy-Toño valve in place Non-labored breathing, in no [...] Na/K+/Phos/Mg/Ca: 140/3.7/--/--/-- (09/06 22) Bun/Creat/Cl/CO2/Glucose: 16/1.07/101/29/110 (09/06 002) XR CHEST 1 VIEW PORTABLE Final Result IMPRESSION: New bibasilar atelectasis status post placement of properly positioned tracheostomy tube. 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 Diet/DELICATESSEN DEPARTMENT MANAGER: ADAT, DELICATESSEN DEPARTMENT MANAGER only if concerns Antibiotics: periop Activity: routine [...] : 09/07/2023 Final Discharge Planning Discharge Disposition: Halfway Facility Services at Discharge: Occupational Therapy, Physical Therapy, Halfway Selected Continued Care - Admitted Since 09/02/2023 Destination Coordination complete. Service Provider Selected Services Address Phone Fax Patient Preferred [facility] [address] [place] [address] [phone] -- -- Community Agency Name(s) For Handoff: [facility] Phone For Handoff: Fax For Handoff: Plan Plan: Patient will discahrge to [facility] at discharge Patient/Family In Agreement With Plan: yes Transportation Transport Request Mode of Transfer: BLS Name of Discharge Transport Company: [employer] Discharge Transport ETA: 09/07/23, 10:30a Belkys GARCIA,RN [facility] Weekend Clinical Assistant To The President Available on secure chat. * Paula Abraham - 09/06/2023 10:28 AM EDT 09/06/23 1028 Transport Request Mode of Transfer BLS Name of Discharge Transport Company [employer] [facility]charge [employer] ETA 09/07/23, 10:30a This pt will be picked up from [facility] [id number] going to: [facility] Jazlyn Belloer Fisher Tr[employer] [phone] * Rosalina Wagner, DELICATESSEN DEPARTMENT MANAGER - 09/06/2023 8:30 AM EDT Acute Care Speech-Language Pathology Voice Prosthesis Evaluation (Speaking Valve) Speaking Valve Recommendations: Speaking valve when awake/alert, as tolerated. Remove speaking valve when sleeping Discharge Recommendations: Based on the below outcome measures/assessment score(s) and DELICATESSEN DEPARTMENT MANAGER clinicaljudgment, Discharge Destination Recommendation: Deferred to PT/OT recomendations related to mobility (Outpatient DELICATESSEN DEPARTMENT MANAGER as needed for any questions re: speaking valve use or use of intelligibility strategies) Acute DELICATESSEN DEPARTMENT MANAGER Outcomes Tracking Communicate basic wants and needs?: [...] (completed prior to admission.) MD Linda Sneed, DELICATESSEN DEPARTMENT MANAGER Anesthesia: Topical lidocaine and Afrin Complications: None [...] Midline; Surgeon: Hemant Galvan MD; Location: [facility] MAIN OR [...] to Visit: Nursing Lines/Tubes/Drains (Rehab Status): Telemetry DELICATESSEN DEPARTMENT MANAGER Existing Precautions/Restrictions: supplemental oxygen Respiratory Status: Type: [...] with no evidence of air trapping; therefore, DELICATESSEN DEPARTMENT MANAGER proceeded with placement of speaking valve. Patient [...] remove when sleeping. Education provided regarding [facility] [place] [facility] Speaking Valve. The Passy-[place] Speaking Valve is a closed position one-way valve. It opens during inhalation and the valve closes during exhalation to redirectairflow out through the vocal folds, mouth, and nose. DELICATESSEN DEPARTMENT MANAGER discussed airflow changes with speaking valve vs open trach. DELICATESSEN DEPARTMENT MANAGER explained benefits of speaking valve use to include potential improvements in swallow function, expedited trach weaning, improved oxygenation, improved olfaction, improved airway clearance and secretion management, and reduced risk of infection vs digital occlusion. Educationproviding regarding safety precautions/contraindications, wearing schedule, and cleaning instruction s. Education provided regarding safety with donning and doffing of the speaking valve. DELICATESSEN DEPARTMENT MANAGER emphasized importance of trach stabilization during placement [...] session: Review intelligibility strategies if needed Acute DELICATESSEN DEPARTMENT MANAGER Goals Plan of Care by RETA Gasca [...] Treatment Time (skilled, billable minutes): 25 minutes DELICATESSEN DEPARTMENT MANAGER Evaluation and Treatment Time Evaluation for Use/Fit of Voice Prosthetic Device 91279: 25 Speech Language Pathologist: RETA Gasca Time In: 829 Time Out: 0900 Total Visit Time: 30 minutes Total Treatment Time (skilled, billable minutes): 25 minutes PPE used during patient interaction: facemask, gloves Patient location/status at end of session: chair Patient alarms at end of session: none altered Needs in reach. DELICATESSEN DEPARTMENT MANAGER Evaluation and Treatment Time Evaluation for Use/Fit of Voice Prosthetic Device 51371: 25 Upon discontinuation of Acute Care Speech [...] family today Plan for discharge tomorrow. Hemant Galvna M.D. Residency Mining Engineering Technologist Department of Otolaryngology-Head and Neck Surgery * [...] Airway: 6UN75R Angeles trach, Rosa Elena flap. Diet/DELICATESSEN DEPARTMENT MANAGER: ADAT, DELICATESSEN DEPARTMENT MANAGER only if concerns Antibiotics: periop Activity: routine Consults: prn Labs/Replacement: routine, can discontinue if stable Anticoagulation: Restart home meds including Plavix POD1 PMHx:CAD, asthma, COPD, HTN, HLD, HF, hypothyroidism, MARYJO, Parkinson's disease Daily Plan: - Ciprodex drops down trach tube - Regular diet - Case management for trach supplies, suction, humidification - DELICATESSEN DEPARTMENT MANAGER for PMV - Reach out to sleep [...] notified that there were still no accepting [facility] agencies. Reviewed messagessent by covering CM to SNFs near pts home as alternative placement. A request for clinical documentation and notes was received from the facilities messaged. Clinical information,notes and vitals sent to SNF facilities. -Daughter's [facility] SNF-Swing Bed asked for time to review and they would notfiyus if they can accept 09/05 -[facility] is able to accept (see below) -[facility] is able to accept (see below) [facility] 6 Available [facility] [address] [facility] 5 Viewed [facility] 4 Viewed [facility] SNF- Pending Approval [facility] 7 Under Review Send again [facility] 5 Under Review Send again [facility] 3 Under Review Send again Will reconvene with family Saturday morning for SNFchoice/dispo planning. Anticipated discharge disposition: Home with Home Health vs SNF Anticipated Services at Discharge: Outpatient follow up, Halfway, Outpatient wound/drain/ostomy care, Wound/drain/line/ostomy-supplies Barriers to Discharge: Facility/Agency Issue, Home Care Explanation of Barriers: Patient medically ready for discharge placement Belkys GARCIA RN CM Clinical Assistant To The President Available on secure chat. Please note that I am a float immigration case worker and may not cover the same service every day. Please call the Main Assistant To The PresidentExhibit Electrician at [phone] for up to date coverage. * Hemant [...] in two days. Hemant Galvan M.D. Residency Mining Engineering Technologist Department of Otolaryngology-Head and Neck Surgery * [...] flap. Trach change POD4 to 6UN75R Angeles. Diet/DELICATESSEN DEPARTMENT MANAGER: ADAT, DELICATESSEN DEPARTMENT MANAGER only if concerns Antibiotics: periop Activity: routine [...] EDT Met with pt, and daughter Bessy Riley [phone] @ bedside and reviewed dc plans. Informed no accepting [facility] agencies @ present. This CM extended deadline and added [facility] Home health services per family request. Timeline deadline tomorrow @ 10am. Family and pt state concerned about discharge to home on Saturday. State want pt to go to [facility] TCU / SNF. Agreeable to SNF referrals. Reason for Consult: SNF Consulted By: pt and family Level(s) of Care Discussed: SNF Patient and/or [employer] Preferred Geographic Area for Discharge: 15 miles from home address Patient and/or [employer] Preference for Providers to Include? 1.[facility] TCU/SNF Patient and/or [employer] Preference for Providers to Exclude? 1.na Patient and/or [employer] [facility] Discussion: Discussed referral process with the patient and/or player services representative. Patient and/or player services representative isagreeable to have placement referral initiated. Paula Alexandre RN, BSN Clinical Assistant To The President [phone] *Please note that I am a float immigration case worker and that I may not cover the [...] cuffless Shiley trach. Hemant Galvan M.D. Residency Mining Engineering Technologist Department of Otolaryngology-Head and Neck Surgery * [...] flap. Trach change POD4 to 6UN75R Angeles. Diet/DELICATESSEN DEPARTMENT MANAGER: ADAT, DELICATESSEN DEPARTMENT MANAGER only if concerns Antibiotics: periop Activity: routine [...] Spouse, Child(tate) Information Source Name/Contact: Machelle Cole [phone] Demographics Verified and Updated: Yes Has the [...] Oxygen Provider and Contact : [facility] [phone] Order for oxygen use?: prn Portable tank?: [...] patient have prescription insurance coverage? : Yes [facility] [address] [place] [phone] - [address] [facility] [phone] Client Professional Does the patient or player services representative express financial concerns? : No Employed?: Yes Coping/Stress Concerns about patient s coping and stress?: No Concerns about patient s caregiver s coping and stress?: No Values and Beliefs Cultural or worship practices that may impact discharge planning and/or medical care?: No Initial Discharge Planning Anticipated discharge disposition: Home with Home Health Transportation Available for Discharge: Family or Friend, Private Vehicle Anticipated DME: oxygen (trach supplies) Anticipated Services at Discharge: Halfway Patient Assessment Completed: Initial Expected Discharge Date: Saturday Discharge Planning Summary Patient will discharge home with new trach supplies, suctioning, humidifier. Additionally he will need a walk of life for O2. He gets his O2 through [facility] ([phone]) but family is adamant to useDasco for [...] needs IADL History IADLs: independent Primary Language: Tunisian Objective/Observation: Vitals/Vitals Responses to Treatment: VSS O2 [...] noted Mobility Assessment: Supine to Sit Mobility [place] Level: Supine->Sit: independent Transfer Assessment: Sit to Stand Transfer [place] Level: Sit->Stand: independent Stand to Sit Transfer [place] Level: Stand->Sit: independent Bed-Chair Transfer [place] Level: Bed<->Chair: independent Outcome Score(s): CURRENT [facility] Daily Activity Inpatient Short Form Putting on/Taking Off Lower Body Clothin - No Assistance Bathin - A Little Assistance Toiletin - No Assistance Putting on/Taking Off Upper Body Clothin - No Assistance Groomin - No Assistance Eatin - No Assistance CURRENT [facility] Activity Raw Score: 23 CURRENT [facility] Activity Functional Limitation/Modifier: 15.86% Currently [...] Limits Mobility Assessment: Supine to Sit Mobility [place] Level: Supine->Sit: independent Balance: Sitting Balance Static Sitting-Level of Assistance: Independent Dynamic Sitting-Level of Assistance: Independent Standing Balance Static Standing-Level of Assistance: Independent Dynamic Standing-Level of Assistance: Independent Transfer Assessment: Sit to Stand Transfer [place] Level: Sit->Stand: independent Gait/Functional Mobility: Gait Assessment [place] Level: Gait: independent Ambulation Distance (Feet): 5 Stairs: Outcome Score(s): CURRENT [facility] Basic Mobility Inpatient Short Form Turning over in bed: 4 - No Assistance Moving from lying on back to sittin - No Assistance Moving to and from bed to chair: 4 - No Assistance Sitting/standing from chair: 4 - No Assistance Walk in hospital room: 4 - No Assistance Climbing 3-5 steps with a railin - No Assistance CURRENT [facility] Mobility Raw Score: 24 CURRENT [facility] Mobility Functional Limitation: 0.00% Impaired in [...] [Urine:100] WBC/Hgb/Hct/Plts: 10.04/14.9/46.8/137 (09/02 426) Na/K+/Phos/Mg/Ca: 140/4.7/--/--/-- (09/02 426) Bun/Creat/Cl/CO2/Glucose: 18/0.89/104/28/134 (09/02 426) XR CHEST 1 VIEW PORTABLE Final Result IMPRESSION: New bibasilar atelectasis status post placement of properly positioned tracheostomy tube. 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 Rosa Elena flap. Trach change POD4 to 6UN75R Angeles. Diet/DELICATESSEN DEPARTMENT MANAGER: ADAT, DELICATESSEN DEPARTMENT MANAGER only if concerns Antibiotics: periop Activity: routine [...] change on POD 4 to 6 cuffless Angeles trach. Hemant Galvan M.D. Residency Mining Engineering Technologist Department of Otolaryngology-Head and Neck Surgery [facility] Plan of care note* Plan of Care - RETA Gasca - 09/06/2023 8:30 AM EDT Problem: Speaking Valve Goal: Communication 1 - Patient will use respiration/phonation coordination strategies with no cuesto increase vocal intensity across 15 minutes while donning speaking valve and maintaining physiologic stability to improve functional communication Outcome: Ongoing [facility]07-19-2024 Plan of care note* Plan of Care [...] completion at recommended discharge destination. Outcome: Progressing [facility]07-18-2024 Nurse Note* Nursing Notes - Deedee Vasquez APRN-DOROTHY - 09/05/2023 10:13 AM EDTSummary: Tracheostomy tube [...] minutes were spent with patient and/or nurse. [facility] Work Phone: 1(620) 408-945207-18-2024 Plan of care note* Plan of Care - Gabrielle Conet RN - 09/05/2023 3:30 AM EDT Problem: Adult Inpatient Plan of Care Goal: Plan of Care Review Outcome: Progressing Goal: Patient-Specific Goal (Individualized) Outcome: Progressing Goal: Absence of Hospital-Acquired Illness or Injury Outcome: Progressing Goal: Optimal Comfort and Wellbeing Outcome: Progressing Goal: Readiness for Transition of Care Outcome: Progressing [facility]07-17-2024 Nurse Note* Nursing Notes - Aislinn Gaitan [...] is mobile at home and requires portability. [facility]07-17-2024 Nurse Note* Nursing Notes - David Caruso RN - 09/04/2023 11:59 AM EDT Family teaching at bedside. completed trach inner cannula exchange, suction, and trach tie exchange. [facility]07-16-2024 Plan of care note* Plan of Care [...] completion at recommended discharge destination. Outcome: Ongoing [facility]07-15-2024 Nurse Note* Nursing Notes - Reyna Ta RN - 09/02/2023 6:47 PM EDT On admission to [facility], from PACU a dual RN initial assessment of skin condition was performed by Reyna Ta RN and Nereyda Alvarez. Skin Assessment: Skin within defined limits:Yes Mg Score: 16 LDA Added:No Reyna Ta RN [facility]07-15-2024 Surgery Postoperative evaluation and management note* Op Note - Efe Mcnulty MD - 09/02/2023 3:52 PM EDT Operative Report DATE OF SERVICE: 09/02/2023 PATIENT: Freddie Cole PREOPERATIVE DIAGNOSIS: 1. Bilateral true vocal fold paralysis POSTOPERATIVE DIAGNOSIS: 1. Bilateral true vocal fold paralysis PROCEDURE: 1. Tracheostomy SURGEON: Hemant Galvan MD MEAT STUFFER: Efe Mcnulty MD ANESTHESIA: General ESTIMATED BLOOD [...] mechanical ventilatory circuit. Proper tidal volumes and HG2ffpyrh were confirmed. The tracheostomy was then secured [...] participated through the entirety of the procedure. [facility] Work Phone: 1(386) 836-129907-15-2024 Surgery Postoperative evaluation and management note* Brief Op Note - Efe Mcnulty MD - 09/02/2023 3:52 PM EDT Freddie Cole ([id number]) PRE OPERATIVE DIAGNOSIS Bilateral vocal fold paralysis [J38.02] POST OPERATIVE DIAGNOSIS Bilateral vocal fold paralysis [J38.02] PROCEDURE PERFORMED Procedure(s) (LRB): TRACHEOSTOMY (Midline) PRIMARY CLOSURE N/A INTRAOPERATIVE FINDINGS Prior scar tissue, 6 cuffed Shiley placed SURGEON Surgeons and Role: * Hemant Galvan MD - Primary ANESTHESIOLOGIST Anesthesiologist: Ning Wing MD ROUND KILN DRAWER: Lev Chavez APRN-ROUND KILN DRAWER SURGICAL STAFF Bin Packer: Ondina Garza RN; Biju Govea RN Resident Assisting: Efe Mcnulty MD Product Development Worker: Elidia Phillips COMPLICATIONS None ESTIMATED BLOOD LOSS Minimal SPECIMENS No specimen sent * No specimens in log * Efe Mcnulty MD September 02, 2023 3:52 PM [facility] Plan of care note* Plan of Care - Efe Mcnulty MD - 09/02/2023 2:48 PM EDT ENT Plan of Care Diagnosis: Bilateral true vocal fold paralysis (idiopathic, 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 Rosa Elena flap. Trach change POD4 to 6UN75R Domoniqueley. Diet/DELICATESSEN DEPARTMENT MANAGER: ADAT, DELICATESSEN DEPARTMENT MANAGER only if concerns Antibiotics: periop Activity: routine [...] Carole 10/01 scheduled Efe Mcnulty MD [facility]07-15-2024 Attending History and physical note* Hemant Galvan [...] fiberoptic laryngoscopy with stroboscopy MD Linda Sneed, DELICATESSEN DEPARTMENT MANAGER Anesthesia: Topical lidocaine and Afrin Complications: None [...] and he will consider these surgical options. [facility]07-15-2024 History and physical note* Hemant Galvan MD [...] fiberoptic laryngoscopy with stroboscopy MD Linda Sneed, DELICATESSEN DEPARTMENT MANAGER Anesthesia: Topical lidocaine and Afrin Complications: None [...] fiberoptic laryngoscopy with stroboscopy MD Linda Sneed, DELICATESSEN DEPARTMENT MANAGER Anesthesia: Topical lidocaine and Afrin Complications: None [...] consider these surgical options. [facility] History and physical note* Hemant Galvan MD [...] fiberoptic laryngoscopy with stroboscopy MD Linda Sneed, DELICATESSEN DEPARTMENT MANAGER Anesthesia: Topical lidocaine and Afrin Complications: None [...] and he will consider these surgical options. [facility]05-22-2024 History of Present illness Narrative* Hemant Galvan [...] fiberoptic laryngoscopy with stroboscopy MD Linda Sneed, DELICATESSEN DEPARTMENT MANAGER Anesthesia: Topical lidocaine and Afrin Complications: None [...] consider these surgical options. [facility] History of Present illness Narrative* Rj Trammell [...] 1 year with PSA documented in this [facility] Work Phone: 1(921) 225-731301-30-2024 Progress note Author Harrison Spears [facility] March 19, 2023 10:23am Note Date/Time March 19, 2023 8 :16am [facility] Medical Records Department [address] [place] [address] Progress Note - Hospitalist 03/19/23 0814 MR#: [id number] Acct: [id number] Name: FREDDIE COLE Rep #:[id number] : 1960 62 From: Harrison Spears DO PCP: Dr. Biju Lobo, DO Status:ADM IN Location: [facility] [id number] Reason for Visit Reason for Visit: Diagnoses [...] % (Auto) 67.0, Lymph % (Auto) 22.9, Greene % (Auto) 7.6, Eos % (Auto) 2.0, [...] cortical renal cyst. * discussed with the quality assurance qa lab analyst Dr. Beauchamp. Consult requested. * Stool studies: [...] Cosigner Signature (if applicable): CC: ~ Signed [facility] Work Phone: 1(764) 606-824901-29-2024 Progress note Author Harrison Spears [facility] March 18, 2023 3:09pm Note Date/Time March 18, 2023 8 :51am [facility] Medical Records Department [address] [place] [address] Progress Note - Hospitalist 03/18/23 0844 MR#: [id number] Acct: [id number] Name: FREDDIE COLE Rep #:[id number] : 1960 62 From: Harrison Spears DO PCP: Dr. Biju Lobo DO Status:ADM IN Location: [facility] [id number] Reason for Visit Reason for Visit: Diagnoses [...] Neut % (Auto) 66.4, Lymph % (Auto) 22.1,Greene % (Auto) 9.2, Eos % (Auto) 1.9, [...] cortical renal cyst. * discussed with the quality assurance qa lab analyst Dr. Beauchamp. Consult requested. * Stool studies: infectious work up negative. Lactoferrin negative. C. diff test cancelled because of hard stool. C. diff essentially ruled out. * EGD showed mild inflammation in the ileum s/s ileitis which was biopsied. DW Dr. Beauchamp, he feels it is less likely Crohn's disease. No treatment at this time. Await on Bx results. Esophagitis * Non-severe actue esophagitis w/o bleeding. No gross lesions in the entire stomach. * DW Dr. Beauchamp, recommends PPI. Chronic conditions: * Persistent [...] subcu daily. Charges/Coding Visit Charges Inpatient E&M: 38903 Subs Hosp L2 03/18/23 3220 <Electronically signed by Harrison Spears DO> Otoniel Signature (if applicable): CC: ~ Signed [facility] Work Phone: 1(998) 535-411201-29-2024 [facility]01-29-2024 Procedure note [facility]01-29-2024 Procedure [facility] 03-17-2023 Progress note Author Delfin Russell [facility] March 17, 2023 11:58am Note Date/Time March 17, 2023 1 1:58am [facility] Medical Records Department [address] [place] [address] Progress Note - Hospitalist 03/17/23 0811 MR#: [id number] Acct: [id number] Name: FREDDIE COLE Rep #:[id number] : 1960 62 From: Delfin Dyer PCP: Dr. Biju Lobo, Status:ADM IN Location: [place] 442995-1 Reason for Visit Reason for Visit: Diagnoses [...] (Auto) 70.6 H, Lymph % (Auto) 22.0, Greene % (Auto) 6.2, Eos % (Auto) 0.6, [...] Clarity Clear, Urine pH 6.0, Ur Specific [place] 1.015, Urine Protein 15 H, Urine Glucose [...] % (Auto) 69.9, Lymph % (Auto) 20.4, Greene % (Auto) 7.8, Eos % (Auto) 1.2, [...] cause, exact etiology unclear: [facility] Min[facility] IV fluid 1 L bolus [...] and cortical renal cyst. Discussed with the quality assurance qa lab analyst Dr. Beauchamp. Consult requested. Possible differentials were [...] clinic with Dr. Nayak and Karen Lora, FRAME CARVER SPINDLE. Was recommended low-salt diet, AutoPap and weight [...] history of GERD. He was referred to [facility] tertiary care outpatient. EGD on 11/23/2020 [...] or advanced directive. His is power of document review attorney for health. After discussion of benefits/risks [...] Clarity Clear, Urine pH 6.0, Ur Specific [place] 1.015, Urine Protein 15 H, Urine Glucose [...] % (Auto) 69.9, Lymph % (Auto) 20.4, Greene % (Auto) 7.8, Eos % (Auto) 1.2, [...] lobe atelectasis. Charges/Coding Visit Charges Inpatient E&M: 18643 Subs Hosp L2 03/17/23 1158 <Electronically signed by Delfin Russell MD> Cosigner Signature (if applicable): CC: ~ Signed [facility] Work Phone: 1(535) 793-622801-28-2024 Discharge summary Author Moses Grady [facility] March 16, 2023 10:55pm Note Date/Time March 16, 2023 1 0:23am [facility] Medical Records Department [address] [place] [address] Emergency Department Summary 03/16/23 MR#: [id number] Acct: [id number] Name: FREDDIE COLE Rep #:[id number] : 1960 62 From: Moses Falcon PCP: Dr. Biju Lobo, DO Status:ADM IN Location: [place] [address] HPI History of Present Illness Chief Complaint: [...] review I see that he was prescribed [id number] January 2023). He states he saw pulmonology about 4 days ago. He was treated for oral thrush. He states that since starting that medicine his dry mouth seems to be better. Patient notes no fever. He denies any history of colitis diverticulitis food intolerances. He gets most of his care through [facility] cardiology and urology is through at [facility]. Hedenies any other new medications. He denies any change in medication dosing.. states she is feeling fine. He does not wear home oxygen. He does not feel short of breath. No change in cough. [facility] Medical History (Updated 03/16/23 @ 13:23 by [...] (Auto) 70.6 H Lymph % (Auto) 22.0 Greene % (Auto) 6.2 Eos % (Auto) 0.6 [...] 10:53 EST Reading Location ID and State: [facility] / [place] Tel , Service support , Abdomen/Pelvis CT [...] Acute hypoxemic respiratory failure, Diarrhea Disposition [facility]: [facility] What to do if you have Problems For any increased pain, shortness of breath, bleeding, nausea or vomiting, chestpain, or any unexpected problems, contact your Primary Care Provider. Call [facility] ([phone]) or report to the closest Emergency Room. Call 911 if necessary. 03/16/23 1839 <Electronically signed by Moses Grady DO> Cosigner Signature (if applicable): CC: Dr. Biju Lobo DO ~ Signed [facility] Work Phone: 1([phone]) 251-592301-27-2024 Consult note Author Ravinder Beauchamp [facility] March 16, 2023 4:50pm Note Date/Time March 16, 2023 4 :36pm [facility] Medical Records Department [address] [place] [address] Consultation - GI 03/16/23 1633 MR#: [id number] Acct: [id number] Name: FREDDIE COLE Rep #:[id number] : 1960 62 From: Ravinder Beauchamp DO PCP: Dr. Biju Lobo DO Status:ADM IN Location: [place] [address] HPI Consult Data Date of Consult: 03/16/23 [...] bowel. Colonicdiverticulosis without acute diverticulitis. [facility] Medical History Abnormal CT of the [...] (Auto) 70.6 H, Lymph % (Auto) 22.0, Greene % (Auto) 6.2, Eos % (Auto) 0.6, [...] Clarity Clear, Urine pH 6.0, Ur Specific [place] 1.015, Urine Protein 15 H, Urine Glucose [...] IBD SGI. Charges/Coding Visit Charges Inpatient E&M: 16543 Init Hosp L3 03/16/23 1650 <Electronically signed by Ravinder Beauchamp DO> Cosigner Signature (if applicable): CC: Dr. Biju Lobo, ~ Signed [facility] Work Phone: 1(350) 583-331201-27-2024 History and physical note Author Delfin Russell [facility] March 16, 2023 2:54pm Note Date/Time March 16, 2023 1 :49pm [facility] Medical Records Department [address] [place] [address] H&P Exam - Hospitalist 03/16/23 1347 MR#: [id number] Acct: [id number] Name: FREDDIE COLE Rep #:[id number] : 1960 62 From: Delfin Dyer PCP: Dr. Biju Lobo, DO Status:ADM IN Location: [place]-3 HPI - General General Date of Admission: [...] imaging discussed in assessment plan. [facility] Medical History Abnormal CT of the [...] (Auto) 70.6 H, Lymph % (Auto) 22.0, Greene % (Auto) 6.2, Eos % (Auto) 0.6, [...] and cortical renal cyst. Discussed with the quality assurance qa lab analyst Dr. Beauchamp. Consult requested. Possible differentials were [...] history of GERD. He was referred to [facility] tertiary care outpatient. EGD on 11/23/2020 [...] or advanced directive. His is power of document review attorney for health. After discussion of benefits/risks procedures involved with full code, DNR CC arrest and DNR CC, the patient opted for full code. Patient does want artificial life support including intubation, tube feed, ventilator and/chest compression, central venous catheter, vasopressor and DC shock if needed Total time spent in ygpl-fo-abnx encounter in discussion of advanced directive 17 minutes. Laboratory Results 03/16/23 10:30: WBC 6.6, RBC 4.76, Hgb 14.6, Hct 43.9, MCV 92.2, MCH 30.7, MCHC 33.3, RDW Std Deviation 44.6 H, RDW Coeff of Nick 13.2, Plt Count 158, MPV 11.5, Immature Gran % (Auto) 0.300, Neut % (Auto) 70.6 H, Lymph % (Auto) 22.0, Greene % (Auto) 6.2, Eos % (Auto) 0.6, [...] lobe atelectasis. Charges/Coding Visit Charges Inpatient E&M: 90499 Init Hosp L3 Procedures Hospitalists Procedures: 26630 Advncd Care Plan 30 Min 03/16/23 1454 <Electronically signed by Delfin Russell MD> Cosigner Signature (if applicable): CC: Dr. Biju Lobo DO; Dr. Delfin Russell MD~ Signed [facility] Work Phone: 1([phone]) 269-112208-08-2023 History of Present illness Narrative* 09/25/2022: Office [...] of 62 satting 96% on room air. [employer]wzebtuusf[facility]jvGuard[employer] Work Phone: 1(460) 217-143407-14-2023 Procedure [facility] 08-24-2022 Procedure [facility]04-03-2023 Procedure note [facility]02-07-2023 History of Present illness Narrative* 03/27/2022: [...] room air. His weight is 223 pounds. [employer]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 hyperplasia) September 15, 2024 11:30pm Complicated UTI (urinary tract infection ) September 15, 2024 11:30pm Elevated troponin September 15, 2024 11:3 0pm Fatigue September 15, 2024 11:3 0pm Generalized weakness September 15, 2024 11: 30pm Leukocytosis September 15, 2024 11:3 0pm Obesity (BMI 30.0-34.9) September 15, 2024 11:30pm Thrombocytopenia September 15, 2024 11:3 0pm Urinary tract infection September 15, 2024 11:30pm (HFpEF) heart failure with preserved eje ction fraction September 15, 2024 11:30pm CAD (coronary artery disease) September 15, 2024 11:30pm MARYJO (obstructive sleep apnea) September 15, 2024 11:30pm Parkinson's disease September 15, 2024 11:3 0pm Chief Complaint Admit Date ACUTE VISIT May [...] 1:5 0pm COPD GOLD III Severe September 14, 2024 1:0 0pm UTI, MICHAEL, MILDLY ELEVATED TROPONIN AND G ENERALIZED September 15, 2024 11:30pm UTI, MICHAEL, MILDLY ELEVATED TROPONIN AND G ENERALIZED September 16, 2024 7:55am UTI, MICHAEL, MILDLY ELEVATED TROPONIN AND G ENERALIZED September 17, 2024 4:54pm UTI, MICHAEL, MILDLY ELEVATED TROPONIN AND G ENERALIZED September 18, 2024 8:15am COPD GOLD III Severe September 18, 2024 9: 48am Chief Complaint Admit Date RIGHT INTERNAL CAROTID ARTERY STENOSIS [facility] 2024 12:58pm COPD June 29, 2024 10:41 [...] 1:5 0pm COPD GOLD III Severe September 14, 2024 1:0 0pm UTI, MICHAEL, MILDLY ELEVATED TROPONIN AND G ENERALIZED September 15, 2024 11:30pm UTI, MICHAEL, MILDLY ELEVATED TROPONIN AND G ENERALIZED September 16, 2024 7:55am UTI, MICHAEL, MILDLY ELEVATED TROPONIN AND G ENERALIZED September 17, 2024 4:54pm UTI, MICHAEL, MILDLY ELEVATED TROPONIN AND G ENERALIZED September 18, 2024 8:15am COPD GOLD III Severe September 18, 2024 9: 48am Reason for Visit Admit Date Asthma-COPD overlap syndrome July 15, 2 025 1:42pm MARYJO (obstructive sleep apnea) July 15, 2024 1:42pm 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, 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 Carotid artery, internal, occlusion July 23, 2024 11:31am Dysphagia July 23, 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 Parkinson's disease July 23, 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 Asthma-COPD overlap syndrome September 02, 2024 11:11am Acute cystitis without hematuria September 152024 11:30pm Complicated UTI (urinary tract infection ) September 15, 2024 11:30pm Acute hypoxic respiratory failure August 192024 11:30pm Acute on chronic urinary retention September 15, 2024 11:30pm MICHAEL (acute kidney injury) September 15 11:30pm Elevated troponin September 15, 2024 11:3 0pm Fatigue September 15, 2024 11:3 0pm Generalized weakness September 15, 2024 11: 30pm Leukocytosis September 15, 2024 11:3 0pm (HFpEF) heart failure with preserved eje ction fraction September 15, 2024 11:30pm BPH (benign prostatic hyperplasia) September 15, 2024 11:30pm CAD (coronary artery disease) September 15, 2024 11:30pm Obesity (BMI 30.0-34.9) September 15, 2024 11:30pm MARYJO (obstructive sleep apnea) September 15, 2024 11:30pm Parkinson's disease September 15, 2024 11:3 0pm Thrombocytopenia September 15, 2024 11:3 0pm Urinary tract infection September 15, 2024 11:30pm Chief Complaint Admit Date RIGHT INTERNAL CAROTID ARTERY STENOSIS M 2024 [...] 1:5 0pm COPD GOLD III Severe September 14, 2024 1:0 0pm UTI, MICHAEL, MILDLY ELEVATED TROPONIN AND G ENERALIZED September 15, 2024 11:30pm UTI, MICHAEL, MILDLY ELEVATED TROPONIN AND G ENERALIZED September 16, 2024 7:55am UTI, MICHAEL, MILDLY ELEVATED TROPONIN AND G ENERALIZED September 17, 2024 4:54pm UTI, MICHAEL, MILDLY ELEVATED TROPONIN AND G ENERALIZED September 18, 2024 8:15am COPD GOLD III Severe September 18, 2024 9: 48am 6 M FU October 08, 2024 11 :21am Reason for Visit Admit Date Asthma-COPD overlap syndrome July 15 025 1:42pm MARYJO (obstructive sleep apnea) July 15, 2024 1:42pm 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, 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 Carotid artery, internal, occlusion July 23, 2024 11:31am Dysphagia July 23, 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 Parkinson's disease July 23, 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 Asthma-COPD overlap syndrome September 02, 2024 11:11am Acute cystitis without hematuria September 152024 11:30pm Complicated UTI (urinary tract infection ) September 15, 2024 11:30pm Acute hypoxic respiratory failure August 192024 11:30pm Acute on chronic urinary retention September 15, 2024 11:30pm MICHAEL (acute kidney injury) September 15 11:30pm Elevated troponin September 15, 2024 11:3 0pm Fatigue September 15, 2024 11:3 0pm Generalized weakness September 15, 2024 11: 30pm Leukocytosis September 15, 2024 11:3 0pm (HFpEF) heart failure with preserved eje ction fraction September 15, 2024 11:30pm BPH (benign prostatic hyperplasia) September 15, 2024 11:30pm CAD (coronary artery disease) September 15, 2024 11:30pm Obesity (BMI 30.0-34.9) September 15, 2024 11:30pm MARYJO (obstructive sleep apnea) September 15, 2024 11:30pm Parkinson's disease September 15, 2024 11:3 0pm Thrombocytopenia September 15, 2024 11:3 0pm Urinary tract infection September 15, 2024 11:30pm Carotid artery disease October 08, 2024 11:21am Hyperlipidemia October 08, 2024 11 :21am 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 artery October 08 11:21am Hypertension October 08, 2024 11 :21am Reason for Visit Admit Date Asthma-COPD overlap syndrome July 15, 1:42pm MARYJO (obstructive sleep apnea) July 15, 2024 1:42pm 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, 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 Carotid artery, internal, occlusion July 23, 2024 11:31am Dysphagia July 23, 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 Parkinson's disease July 23, 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 Asthma-COPD overlap syndrome September 02, 2024 11:11am Acute cystitis without hematuria September 152024 11:30pm Complicated UTI (urinary tract infection ) September 15, 2024 11:30pm Acute hypoxic respiratory failure August 192024 11:30pm Acute on chronic urinary retention September 15, 2024 11:30pm MICHAEL (acute kidney injury) September 15 11:30pm Elevated troponin September 15, 2024 11:3 0pm Fatigue September 15, 2024 11:3 0pm Generalized weakness September 15, 2024 11: 30pm Leukocytosis September 15, 2024 11:3 0pm (HFpEF) heart failure with preserved eje ction fraction September 15, 2024 11:30pm BPH (benign prostatic hyperplasia) September 15, 2024 11:30pm CAD (coronary artery disease) September 15, 2024 11:30pm Obesity (BMI 30.0-34.9) September 15, 2024 11:30pm MARYJO (obstructive sleep apnea) September 15, 2024 11:30pm Parkinson's disease September 15, 2024 11:3 0pm Thrombocytopenia September 15, 2024 11:3 0pm Urinary tract infection September 15, 2024 11:30pm Carotid artery disease October 08, 2024 11:21am Hyperlipidemia October 08, 2024 11 :21am Hypertension October 08, 2024 11 :21am 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 artery October 08 11:21am Family History Unknown Family Member Name Dates [...] Will Yes January 13 7:03pm Power of Director Alumni Relations Yes January 13, 2021 7:03pm Advance Directive Response Recorded Date/ Time Living Will Yes January 24 9:09am Power of Director Alumni Relations Yes January 24, 2022 9:09am Name of Medical Power of Director Alumni Relations KIKE JULIA January 24, 2022 9:09am Advance Directive Response Recorded Date/ Time Living Will Yes January 24 10:09am Power of Director Alumni Relations Yes January 24, 2022 10:09am Name of Medical Power of Director Alumni Relations KIKE JULIA January 24, 2022 10:09am Advance Directive Response Recorded Date/ Time Living Will Yes January 24 10:09am Power of Director Alumni Relations Yes January 24, 2022 10:09am Advance Directive Response Recorded Date/ Time Living Will Yes January 24 9:09am Power of Director Alumni Relations Yes January 24, 2022 9:09am Advance Directive Response Recorded Date/ Time Living Will No March 16 10:03am Power of Director Alumni Relations No March 16, 2023 10:03am Advance Directive Response Recorded Date/ Time Living Will No March 16 3:20pm Power of Director Alumni Relations No March 16, 2023 3:20pm Advance Directive Response Recorded Date/ Time Name of Medical Power of Director Alumni Relations spouse May 03, 2023 10:19am Living Will Yes May 03, 2023 10:19am Power of Director Alumni Relations Yes May 02 10:19am Date Activated Date Inactivated Comments 09/02/2023 1:35 PM Date Activated Date Inactivated Comments 09/02/2023 1:35 PM Advance Directive Response Recorded Date/ Time Living Will No October 27, 2 024 3:19pm Power of Director Alumni Relations No October 28, 2023 3:19pm Living Will Yes October 29, 2023 9:10pm Power of Director Alumni Relations Yes October 9:10pm Living Will Yes March 08 3:50pm Power of Director Alumni Relations Yes March 08, 2024 3:50pm Name of Medical Power of Director Alumni Relations Machelle Cole March 08, 2024 3:50pm Advance Directive Response Recorded Date/ Time Living Will No October 27, 2 024 4:19pm Do you have a Healthcare Pow er of Director Alumni Relations? No October 28, 2023 4:19pm Living Will Yes October 29, 2023 10:10pm Do you have a Healthcare Pow er of Director Alumni Relations? Yes October 29, 2023 10:10pm Living Will Yes March 08 4:50pm Do you have a Healthcare Pow er of Director Alumni Relations? Yes March 08, 2024 4:50pm Name of Medical Power of Director Alumni Relations Machelle Cole March 08, 2024 4:50pm Advance Directive Response Recorded Date/ Time Living Will No October 27, 2 024 4:19pm Do you have a Healthcare Power of Director Alumni Relations? No October 28, 2023 4:19pm Living Will Yes October 29, 2023 10:10pm Do you have a Healthcare Power of Director Alumni Relations? Yes October 29, 2023 10:10pm Advance Directive Response Recorded Date/ Time Living Will No October 27 2 024 4:19pm Do you have a Healthcare Power of Director Alumni Relations? No October 28, 2023 4:19pm Advance Directive Response Recorded Date/ Time Advance Directives on File No September 07, 2024 2:12pm Living Will Yes September 07, 2024 2:32pm Do you have a Healthcare Power of Director Alumni Relations? Yes September 07, 2024 2:32pm Advance Directive Response Recorded Date/ Time Advance Directives on File No September 07, 2024 2:12pm Living Will Yes September 07, 2024 2:32pm Do you have a Healthcare Power of Director Alumni Relations? Yes September 07, 2024 2:32pm Do you have a Healthcare Power of Director Alumni Relations? Yes September 15, 2024 5:27pm Advance Directive Response Recorded Date/ Time Advance Directives on File No September 07, 2024 2:12pm Living Will Yes September 07, 2024 2:32pm Do you have a Healthcare Power of Director Alumni Relations? Yes September 07, 2024 2:32pm Do you have a Healthcare Power of Director Alumni Relations? No September 16, 2024 12:34am Summary Purpose Additional Source Comments <item> Privacy [...] section and content) DATE CREATED AUTHOR 10/28/2021 [facility] DATE CREATED AUTHOR AUTHOR'S ORGANIZ ATION [facility]/20[facility] DATE CREATED AUTHOR AUTHOR'S ORGANIZ ATION 09/26/2022 [employer] DATE CREATED AUTHOR AUTHOR'S ORGANIZ ATION 03/29/2023 [facility] DATE CREATED AUTHOR AUTHOR'S ORGANIZ ATION 03/31/2023 [facility] DATE CREATED AUTHOR AUTHOR'S ORGANIZ ATION 05/30/2023 [facility] DATE CREATED AUTHOR AUTHOR'S ORGANIZ ATION 03/10/2024 [facility] DATE CREATED AUTHOR AUTHOR'S ORGANIZ ATION 06/27/2024 [facility] DATE CREATED AUTHOR AUTHOR'S ORGANIZ ATION 10/21/2024 [facility] Care Teams (unrecognized sec tion and [...] Dr. Biju Lobo , Primary Care Provider, Other Pr ovider Active Dr. Wolfgang Shetty , Attending Provider Active Team Status: Inactive Member Role Status Dates Dr. Biju Lobo DO Primary Care Provider, Attendin g Provider Active Team Status: Active Member Role Status Dates Dr. Biju Lobo , DO Primary Care Prov ider, Referring Provider, Other Provider Active Dr. Wolfgang Shetty , DO Attending [...] Provider, Referrin g Provider Active Karen Lora FR[employer] SPINDLE, [employer] SPINDLE-C Attending Provider Active Team Status: Inactive Member Role Status Dates Dr. Biju Lobo DO Primary Care Provider Active Karen Lora [employer], [employer] SPIND[employer]-C Attending Provider, Referrin g Provider Active Team Status: Inactive Member Role Status Dates Dr. Biju Lobo DO Primary Care Provider Active Karen Lora FR[employer] SPINDLE, [employer] SPINDLE-C Attending Provider Active Team Status: Active Member Role Status Dates Dr. Biju Lobo DO Primary Care Provider Active Dr. Harrison Macario MD Attending Provider Active Team Status: Active Member Role Status Dates Dr. Biju Lobo DO Primary Care Provider Active Dr. Harrison [...] Provider Active Dr. Harrison Spears DO Attending Provider Active Team Status: Active Member Role Status Dates Dr. Biju Lobo , DO Primary Care Provider Active Dr. Moses Grady DO Emergency Provider Active Dr. Delfin Russell MD Admit Provider, Other Provider Active Dr. Ravinder Beauchamp DO Attending Provider Active Dr. Harrison Spears DO Referring Provider Active Team Status: Active Member Role Status Dates Dr. Biju Lobo , DO Primary Care Provider Active Dr. Ravinder Beauchamp DO Attending Provider Active Dr. Harrison Spears DO Referring Provider Active Team Status: Inactive Member Role Status Dates Dr. Biju Lobo , DO Primary Care Provider Active Dr. Jayson Miramontes DO Emergency Provider Active Team Status: Inactive Member Role Status Dates Dr. Biju Lobo , DO Primary Care Provider Active Dr. Jayson Miramontes DO Attending Provider, Emergency Provider Active Team Status: Inactive Member Role Status Dates Dr. Biju Lobo DO Primary Care Provider Active Dr. Rj Trammell II, MD Attending Provider Active Team Status: Active Member Role Status Dates Dr. Biju Lobo DO Primary Care Provider Active Karen Lora [employer]IND[employer], [employer] SPIND[employer]-C Attending Provider, Referrin g Provider Active Screen Maker Relationship Specialty Start Date End Date Biju Lobo DO PCP - General 01/25/21 Biju Lobo DO [address] [place] [address] PCP - MMO ACO PCP 02/18/23 Team Status: Inactive Member Role Status Dates Dr. Biju Lobo DO Primary Care Provider, Referrin g Provider Active Dr. Gilbert Hoang MD Attending Provider Active Team Status: Active Member Role Status Dates Dr. Biju Lobo DO Primary Care Provider Active Brenda Coker [employer]LE, [employer] SPIND[employer]-C Attending Provider, Referring P misa Active Dr. Gilbert Hoang MD Other Provider Active Team Status: Inactive Member Role Status Dates Dr. Biju Lobo DO Primary Care Provider Active Dr. Gilbert Hoang MD Attending Provider, Referring Pr ovider Active Screen Maker Relationship Specialty Start Date End Date Biju Lobo DO [address] [place] [address] [place] [address] PCP - General Family Medicine 06/28/23 Rajinder Grijalva MD [address] [place] [address] Referring Provider Otolaryngology 07/03/23 Screen Maker Relationship Specialty Start Date End Date Biju Lobo DO [address] [place] [address] [place] [address] PCP - General Family Medicine 06/28/23 09/02/23 Gilbert Hoang MD [address] [place], [place] [address] PCP - Referring 1 Cardiovascular Disease 09/03/23 Biju Lobo DO [address] [place] [address] [place] [phone] PCP - General Family Medicine 09/03/23 Rajinder Grijalva MD [address] [place], [place] [address] Referring Provider Otolaryngology 07/03/23 Screen Maker Relationship Specialty Start Date End Date Gilbert Hoang MD [address] [place], [place] [address] PCP - Referring 1 Cardiovascular Disease 09/03/23 Biju Lobo DO [address] [place] [address] [place] [phone] PCP - General Family Medicine 09/03/23 Rajinder Grijalva MD [address] [facility], [place], [place] [address] Referring Provider Otolaryngology 07/03/23 Screen Maker Relationship Specialty Start Date End Date Gilbert Hoang MD [address] [place], [place] [id number] PCP - Referring 1 Cardiovascular Disease 09/03/23 Biju Lobo DO [address] [place] [address] [place] [phone] PCP - General Family Medicine 09/03/23 Rajinder Grijalva MD [address] [place], [place] [address] Referring Provider Otolaryngology 07/03/23 Screen Maker Relationship Specialty Start Date End Date Biju Lobo DO PCP - General 01/25/21 Screen Maker Relationship Specialty Start Date End Date Gilbert Hoang MD [address] [address] PCP - Referring 1 Cardiovascular Disease 09/03/23 Biju Lobo DO [address] [place] [address] [place] [phone] PCP - General Family Medicine 09/03/23 Rajinder Grijalva MD [address] [place] [address] Referring Provider Otolaryngology 07/03/23 Team Status: Active [...] April 15, 2024 End: April 15, 2024 Screen Maker Relationship Specialty Start Date End Date Gilbert Hoang MD [address] [address] PCP - Referring 1 Cardiovascular Disease 09/03/23 Biju Lobo DO [address] [address] PCP - General Family Medicine 09/03/23 Rajinder Grijalva MD [address] [place] [address] Referring Provider Otolaryngology 07/03/23 Team Status: Inactive [...] 2024 End: May 27, 2024 Tita Wick NP-C Attending Provider Active Start: May 27, 2024 [...] 2024 End: June 29, 2024 Tita Wick [employer]-C Attending Provider Active Start: June 29, 2024 End: June 29, 2024 Tita Wick [employer]-C Referring Provider Active Start: June 29, 2024 End: June 29, 2024 Team Status: Active Member Role Status Dates Dr. Biju Lobo DO Primary Care Provider Active Start: July 02, 2024 Tita Wick [employer]-C Attending Provider Active Start: July 02, 2024 Tita Wick [employer]-C Referring Provider Active Start: July 02, 2024 Team Status: Inactive Member Role Status Dates Dr. Biju Lobo DO Primary Care Provider Active Start: July 02, 2024 End: July 02, 2024 Tita Wick [employer]-C Attending Provider Active Start: July 02, 2024 End: July 02, 2024 Tita Wick [employer]-C Referring Provider Active Start: July 02, 2024 End: July 02, 2024 Team Status: Active Member Role Status Dates Dr. Biju Lobo DO Primary Care Provider Active Start: July 03, 2024 Tita Wick [employer]-C Referring Provider Active Start: July 03, 2024 Tita Wick [employer]-C Other Provider Active St art: July 03, 2024 Dr. Richard Munoz DO Attending Provider Active S tart: July 03, 2024 Team Status: Active Member Role Status Dates Dr. Biju Lobo DO Primary Care Provider Active Start: July 10, 2024 Dr. Christian eHrnandez MD Attending Provider Active Start: July 10, 2024 Dr. Christian Hernandez MD Referring Provider Active Start: July 10, 2024 Team Status: Inactive Member Role Status Dates Dr. Biju Lobo DO Primary Care Provider Active Start: July 15, 2024 End: July 15, 2024 Dr. Biju Lobo DO Referring Provider Active Start: July 15, 2024 End: July 15, 2024 Tita Wick [employer]-C Attending Provider Active Start: July 15, 2024 [...] End: August 04, 2024 Tita Wick NP-C Referring Provider Active Start: August 04, 2024 [...] 2024 End: May 27, 2024 Tita Wick NP-C Attending Provider Active Start: May 27, 2024 [...] Provider Active S tart: June 29, 2024 Ttia Wick NP-C Referring Provider Active Start: June [...] Start: July 03, 2024 Tita Wick NP-C Other Provider Active St art: July 03, 2024 Dr. Richard Munoz DO Attending Provider Active S tart: July 03, 2024 Team Status: Inactive Member Role/Relationship Status Dates Dr. Bjiu Lobo DO Primary Care Provider Active Start: [...] 2024 End: August 04, 2024 HUMBERTO CastrejonC Referring Provider Active Start: August 04, 2024 [...] Member Role/Relationship Status Dates Dr. Biju Lobo , DO Primary Care Provider Active Start: September 07, 2024 End: September 07, 2024 Dr. Richard Munoz , DO Attending Provider Active S tart: September 07, 2024 End: September 07, 2024 Dr. Richard Munoz , DO Referring Provider Active S tart: September 07, 2024 End: September 07, 2024 Team Status: Active Member Role/Relationship Status Dates Dr. Biju Lobo , Primary Care Provider Active Start: September 11, 2024 Dr. Richard Munoz , DO Attending Provider Active S tart: September 11, 2024 Dr. Richard Munoz , DO Referring Provider Active S tart: September 11, 2024 Team Status: Active Member Role/Relationship Status Dates Dr. Biju Lobo , Primary Care Provider Active Start: September 14, 2024 Dr. Richard Munoz , DO Attending Provider Active S tart: September 14, 2024 Dr. Richard Munoz , DO Referring Provider Active S tart: September 14, 2024 Team Status: Active Member Role/Relationship Status Dates Dr. Biju Lobo , Primary Care Provider Active Start: September 15, 2024 Dr. Jose Oliveira , DO Emergency Provider Active Start: September 15, 2024 Dr. Nikolai Freeman , DO Admit Provider Active Start: September 15, 2024 Dr. Nikolai Freeman , DO Attending Provider Active Start: September 15, 2024 Team Status: Inactive Member Role/Relationship Status Dates Dr. Biju Lobo , Primary Care Provider Active Start: September 14, 2024 End: September 17, 2024 Dr. Richard Munoz , DO Attending Provider Active S tart: September 14, 2024 End: September 17, 2024 Dr. Richard Munoz , DO Referring Provider Active S tart: September 14, 2024 End: September 17, 2024 Team Status: Active Member Role/Relationship Status Dates Dr. Biju Lobo , Primary Care Provider Active Start: September 15, 2024 Dr. Jose Oliveira , DO Emergency Provider Active Start: September 15, 2024 Dr. Nikolai Freeman , DO Admit Provider Active Start: September 15, 2024 Dr. Nikolai Freeman , DO Other Provider Active Start: September 15, 2024 Dr. Danita Spaulding , DO Attending Provider Active S tart: September 15, 2024 Team Status: Active Member Role/Relationship Status Dates Dr. Biju Lobo , Primary Care Provider Active Start: September 16, 2024 Dr. Jose Oliveira , DO Emergency Provider Active Start: September 16, 2024 Dr. Nikolai Freeman , DO Admit Provider Active Start: September 16, 2024 Dr. Nikolai Freeman , DO Other Provider Active Start: September 16, 2024 Dr. Danita Spaulding , DO Attending Provider Active S tart: September 16, 2024 Dr. Danita Spaulding , DO Other Provider Active Start : September 16, 2024 Team Status: Active Member Role/Relationship Status Dates Dr. Biju Lobo , Primary Care Provider Active Start: September 16, 2024 Dr. Yasmany Pena MD Attending Provider Active S tart: September 16, 2024 Team Status: Active Member Role/Relationship Status Dates Dr. Biju Lobo DO Primary Care Provider Active Start: September 17, 2024 Dr. Jose Oliveira , Emergency Provider Active Start: September 17, 2024 Dr. Nikolai Freeman , DO Admit Provider Active Start: September 17, 2024 Dr. Nikolai Freeman , Other Provider Active Start: September 17, 2024 Dr. Danita Spaulding , Attending Provider Active S tart: September 17, 2024 Dr. Danita Spaulding , Other Provider Active Start : September 17, 2024 Team Status: Inactive Member Role/Relationship Status Dates Dr. Biju Lobo DO Primary Care Provider Active Start: September 15, 2024 End: September 18, 2024 Dr. Jose Oliveira , DO Emergency Provider Active Start: September 15, 2024 End: September 18, 2024 Dr. Nikolai Freeman , DO Admit Provider Active Start: September 15, 2024 End: September 18, 2024 Dr. Nikolai Freeman , DO Other Provider Active Start: September 15, 2024 End: September 18, 2024 Dr. Danita Spaulding , DO Attending Provider Active S tart: September 15, 2024 End: September 18, 2024 Team Status: Active Member Role/Relationship Status Dates Dr. Biju Lobo DO Primary Care Provider Active Start: September 18, 2024 Dr. Jose Oliveira , Emergency Provider Active Start: September 18, 2024 Dr. Nikolai Freeman , Admit Provider Active Start: September 18, 2024 Dr. Nikolai Freeman , Other Provider Active Start: September 18, 2024 Dr. Danita Spaulding DO Attending Provider Active S tart: September 18, 2024 Dr. Danita Spaulding DO Other Provider Active Start : September 18, 2024 Team Status: Active Member Role/Relationship Status Dates Dr. Biju Lobo DO Primary Care Provider Active Start: September 18, 2024 Dr. Richard Munoz DO Attending Provider Active S tart: September 18, 2024 Dr. Richard Munoz DO Referring Provider Active S tart: September 18, 2024 Team Status: Inactive Member Role/Relationship Status Dates Dr. Biju Lobo DO Primary Care Provider Active Start: June 22, 2024 End: June 22, 2024 Dr. hCristian Hernandez MD Attending Provider Active Start: June [...] June 29, 2024 End: June 29, 2024 HUMBERTO CastrejonC Referring Provider Active Start: June 29, 2024 [...] July 02, 2024 End: July 02, 2024 MAHAMED Castrejon Attending Provider Active Start: July 02, 2024 End: July 02, 2024 MAHAMED Castrejon Referring Provider Active Start: July 02, 2024 [...] 2024 End: August 04, 2024 Tita Wick , [employer]-C Referring Provider Active Start: August 04, 2024 End: August 04, 2024 Team Status: Inactive Member Role/Relationship Status Dates Dr. Biju Lobo , Primary Care Provider Active Start: September 02, 2024 End: September 02, 2024 Dr. Biju Lobo DO Referring Provider Active Start: September 02, 2024 End: September 02, 2024 Dr. Richard Munoz , DO Attending Provider Active S tart: September 02, 2024 End: September 02, 2024 Team Status: Inactive Member Role/Relationship Status Dates Dr. Biju Lobo DO Primary Care Provider Active Start: September 07, 2024 End: September 07, 2024 Dr. Richard Munoz , Attending Provider Active S tart: September 07, 2024 End: September 07, 2024 Dr. Richard Munoz , DO Referring Provider Active S tart: September 07, 2024 End: September 07, 2024 Team Status: Inactive Member Role/Relationship Status Dates Dr. Biju Lobo DO Primary Care Provider Active Start: September 14, 2024 End: September 17, 2024 Dr. Richard Munoz , Attending Provider Active S tart: September 14, 2024 End: September 17, 2024 Dr. Richard Munoz , Referring Provider Active S tart: September 14, 2024 End: September 17, 2024 Team Status: Inactive Member Role/Relationship Status Dates Dr. Biju Lobo DO Primary Care Provider Active Start: September 15, 2024 End: September 18, 2024 Dr. Jose Oliveira , Emergency Provider Active Start: September 15, 2024 End: September 18, 2024 Dr. Nikolai Freeman , DO Admit Provider Active Start: September 15, 2024 End: September 18, 2024 Dr. Nikolai Freeman , DO Other Provider Active Start: September 15, 2024 End: September 18, 2024 Dr. Danita Spaulding , DO Attending Provider Active S tart: September 15, 2024 End: September 18, 2024 Team Status: Active Member Role/Relationship Status Dates Dr. Biju Lobo DO Primary Care Provider Active Start: September 16, 2024 Dr. Jose Oliveira , Emergency Provider Active Start: September 16, 2024 Dr. Nikolai Freeman , DO Admit Provider Active Start: September 16, 2024 Dr. Nikolai Freeman , DO Other Provider Active Start: September 16, 2024 Dr. Danita Spaulding , DO Attending Provider Active S tart: September 16, 2024 Dr. Danita Spaulding , DO Other Provider Active Start : September 16, 2024 Team Status: Active Member Role/Relationship Status Dates Dr. Biju Lobo , Primary Care Provider Active Start: September 16, 2024 Dr. Yasmany Pena MD Attending Provider Active S tart: September 16, 2024 Team Status: Active Member Role/Relationship Status Dates Dr. Biju Lobo , DO Primary Care Provider Active Start: September 17, 2024 Dr. Jose Oliveira , DO Emergency Provider Active Start: September 17, 2024 Dr. Nikolai Freeman , DO Admit Provider Active Start: September 17, 2024 Dr. Nikolai Freeman , DO Other Provider Active Start: September 17, 2024 Dr. Danita Spaulding , DO Attending Provider Active S tart: September 17, 2024 Dr. Danita Spaulding , DO Other Provider Active Start : September 17, 2024 Team Status: Active Member Role/Relationship Status Dates Dr. Biju Lobo , Primary Care Provider Active Start: September 18, 2024 Dr. Jose Oliveira , DO Emergency Provider Active Start: September 18, 2024 Dr. Nikolai Freeman , DO Admit Provider Active Start: September 18, 2024 Dr. Nikolai Freeman , Other Provider Active Start: September 18, 2024 Dr. Danita Spaulding , DO Attending Provider Active S tart: September 18, 2024 Dr. Danita Spaulding , DO Other Provider Active Start : September 18, 2024 Team Status: Active Member Role/Relationship Status Dates Dr. Biju Lobo , DO Primary Care Provider Active Start: September 18, 2024 Dr. Richard Mnuoz , DO Attending Provider Active S tart: September 18, 2024 Dr. Richard Munoz , DO Referring Provider Active S tart: September 18, 2024 Team Status: Inactive Member Role/Relationship Status Dates Dr. Biju Lobo , Primary Care Provider Active Start: September 25, 2024 End: September 25, 2024 Dr. Biju Lobo DO Attending Provider Active Start: September 25, 2024 End: September 25, 2024 Team Status: Inactive Member Role/Relationship Status Dates Dr. Biju Lobo DO Primary Care Provider Active Start: October 08, 2024 End: October 08, 2024 Dr. Biju Lobo DO Referring Provider Active Start: October 08, 2024 End: October 08, 2024 Brenda Coker [employer], [employer] Attending Provider Active Start: October 08, 2024 End: October 08, 2024 Team Status: Inactive Member Role/Relationship Status Dates Dr. Biju Lobo DO Primary Care Provider Active Start: September 18, 2024 End: October 18, 2024 Dr. Richard Munoz DO Attending Provider Active S tart: September 18, 2024 End: October 18, 2024 Dr. Richard Munoz DO Referring Provider Active S tart: September 18, 2024 End: October 18, 2024 Reason for Visit (unrecogniz ed section and content) Reason Comments Trach Change Specialty Diagnoses / Procedures Referred By Contac t Referred To Contact Otolaryngology Diagnoses ret 3 mo f/u, trach change [id number] Procedures RETURN PATIENT W/ SCOPE Biju Lobo DO [address] [facility] [address] [place] [address] Phone: tel: fax: Hemant Galvan MD [address] [facility] [address] [place] [address] Phone: tel: fax: Referral ID Status Reason Start Date Expiration Date V isits Requested Visits Authorized [id number] New Request 06/24/2024 07/19/2025 1 1 Reason Comments Yearly w/ PSA Reason Comments Breathing Problem Specialty Diagnoses / Procedures Referred By Contac t Referred To Contact Voice & Swallowing Diagnoses Bilateral vocal cord paralysis Stridor Dysphonia Rajinder Grijalva MD [address] [place] [address] [facility] [address] [place] [address] Referral ID Status Reason Start Date Expiration Date V isits Requested Visits Authorized [id number] New Request 07/02/2023 07/26/2024 1 1 Specialty Diagnoses / Procedures Referred By Eb anderson Referred To Contact Diagnoses 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] Procedures CO TRACHEOSTOMY PLANNED SEPARATE PROCEDURE TRACHEOSTOMY Hemant Galvan MD [address] [place] [address] [facility] [address] [place] [address] Referral ID Status Reason Start Date Expiration Date Visits Re quested Visits Authorized [id number] 1 1 Reason Comments Post Op Visit [...] Caruso RN)1557 (Given - Provider: David Caruso RN)2043 (Given - Provider: Rudy Medley RN) 0832 [...] or side of thighs., Indications: DVT/PE prophylaxis 08 (Given - Provider: David Caruso RN) [...] Until Discontinued 0515 (Given - Provider: Gabrielle Conte RN) 0548 (Given - Provider: Rudy Medley, JAZIEL) 0537 (Given - Provider: Hoang Gonzalez, JAZIEL) [...] 0826 (Given - Provider: Reyna Baltazar RN) Rosuvastatin [...] Baltazar RN) 0825 (Given - Provider: Reyna Baltazar, JAZIEL) Senna (SENOKOT) tablet 8.6 mg(Linked Group 1) 8.6 mg, Per NG tube, DAILY, First dose on Sat09/03/23 at 0900, Until Discontinued 0823 (See Alternative - Provider: David Caruso RN) 0832 (See Alternative - Provider: Reyna Baltazar RN) 0825 (See Alternative - Provider: Reyna Baltzaar RN) Tamsulosin HCl (FLOMAX) capsule 0.4 mg 0.4 mg, Oral, DAILY, First dose on Sat09/03/23 at 0900, Until Discontinued, Slow release product. Do not chew or crush 0823 (Given - Provider: David Caruso RN) 0832 (Given - Provider: Reyna Baltazar RN) 08 (Given - Provider: Reyna Baltazar RN) PRN Medication Order 09/05/2023 09/06/2023 09/07/2023 Acetaminophen (TYLENOL) oral solution 650 mg(Linked Group 2) 650 mg, Per NG tube, EVERY 4 HOURS NEEDED, Starting on Sat09/02/23 at 2036, Until 09/07/23 at 1332, Mild Pain, Oral temp > 100.4 F, Maximum dose of acetaminophen is 4000 mg from all sources in 24 hours. Acetaminophen (TYLENOL) suppository 650 mg(Linked Group 2) 650 mg, Rectal, EVERY 4 HOURS NEEDED, Starting on Sat09/02/23 at 2036, Until 09/07/23 at 1332, Oral temp > 100.4 F, Mild Pain, Maximum dose of acetaminophen is 4000 mg from all sources in 24 hours. Acetaminophen (TYLENOL) tablet 650 mg(Linked Group 2) 650 mg, Oral, EVERY 4 HOURS NEEDED, Starting on Sat09/02/23 at 2036, Until 09/07/23 at 1332, Mild Pain, Oral [...] Oral, EVERY 4 HOURS NEEDED, Starting on 09/02/23 at 2037, Until 09/07/23 at 1332, Moderate [...] Hours 1443 (See Alternative - Provider: David Caruso RN) Prochlorperazine (COMPAZINE) injection 10 mg(Linked Group 6) [...] Intravenous, EVERY 6 HOURS NEEDED, Starting on 09/02/23 at 2036, Until 09/07/23 at 1332, Refractory [...] BE BASED ON THE PRIMARY CLINICAL RECORDS. Outcome Referrals [facility]. provides no warranty or guarantee of the accuracy or completeness of information in this document.
== END | disposition home or self-care (01) ==
PROVIDERS: PCP Family Medicine; Referring Provider Urology; Visit Provider Urology
DX: N39.0 Urinary tract infection, site not specified (principal)
CPT/HCPCS: 87086; 87088; 87186

== ENCOUNTER → 2024-12-03 | Outpatient (CLI) | payer MEDICARE, BC, SELFPAY ==
[2024-10-05 07:18] VITALS: BMI 29.9
== END | disposition home or self-care (01) ==
LOC: LABSPEC 13:02
PROVIDERS: PCP Family Medicine; Referring Provider Family Medicine; Visit Provider Family Medicine
DX: N39.0 Urinary tract infection, site not specified (principal)
CPT/HCPCS: 87077; 87086; 87088; 87186

== ENCOUNTER 2025-01-27 12:00 | Outpatient (RCR) | payer MEDICARE, BC, OTHER, SELFPAY ==
[2024-10-05 07:18] VITALS: BMI 29.9
--- NOTE | 2024-12-07 14:25 | HP.PTEVAL ---
Patient's Visit Information Visit Information Visit Information: FREDDIE DUMONT is a 64 year old M referred to Physical Therapy by Dr. Christian Hernandez MD with a diagnosis of PD. Date of Evaluation: 12/07/24 Physical Therapist: SHIRA Wilson Visit Plan Frequency: 2x /Week Duration: 2 Months Plan: 2X/ week for 4-8 weeks for sit to stand transfers, LE strength (L hip OA), balance, gait training (with rollator or least restrictive device), dual tasking, car transfer simulation, stepping over others with UE support, timed endurance gait with rollator to show improvement with endurance and gait mechanics with HEP would like to learn his HEP instructions at end of each visit so she can help him at home Subjective Subjective: Pt reports that he is having trouble walking and getting out of his chair. He has PD. He has had it for couple of years. This past summer things started to get worse. His L hip is bad also with arthritis. He has had a lot of falls. 2 falls this past month. The first time he was trying to get out of his shorts to get into PJ's and he fell over. The second time he was trying to put his shoes on sitting but occ does not do it. He has a walker that he uses at night. It does not have wheels on it and uses it to get to the restroom or until he gets out to the kitchen. His said that he does not do anything but sit. He has a lift chair and he is losing his strength in his arms also. He struggles getting in and out of bed but still able to do it on his own. 2 steps to get into the house with a sturdy railing and he gets in the house ok. Pain L hip pain: Pain Intensity (Out of 10): 6 Objective Objective: Gait: walks with R LE not advancing like the L LE and them not passing stance leg and no heel to toe gait pattern. Worked with the pt using a rollator and was able to get heel to toe gait pattern and pt admitted to feeling more safe and stable with better gait ability. 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 LE MMT: R hip flexion 13.5 and L 8.3 R knee ext 17.1 and L 16 R knee flex 14 and L 12.3 Standing heel or toe raises: able to raise heels and only partial ROM toes...poor balance. Sitting opp arm and leg kick out (due to L hip is bone on bone) X 10 each side Decreased trunk flexion and rotation AROM Balance/Special Test Scores Lower Extremity Functional Score: 6 Goals Goal 1:: I HEP Goal Time Frame: 6-8 Weeks Goal 2:: Be able to back into the car and get legs into the car with verbal cues with 50% more ease Goal Time Frame: 6-8 Weeks Goal 3:: Sit to stand with 1 UE X 5 on first attempts Goal Time Frame: 6-8 Weeks Goal 4:: Be able to walk with more heel to toe gait pattern and stride length with least restrictive device Goal Time Frame: 6-8 Weeks Rehabilitation Potential Rehabilitation Potential: Good Anticipated Interventions Patient/Client Instruction: Educate patient on: Condition and Plan of Care For the Purpose of:: To decrease pain, To increase ROM, To improve nutrient delivery to tissue, To improve muscle performance and motor function, To improve ability to perform ADL's, To increase tolerance to activity/condition/position, To improve performance and independence with ADL's, To decrease level of supervision to perform tasks, To improve ability of physical actions for home/community/work/leisure, To improve gait and locomotor functions, To improve health of tissue, To decrease soft tissue restriction, To increase flexibility/ROM, To improve endurance, To improve balance and To improve safety with gait Therapeutic Exercise to Include: Strength training, Endurance training, Balance training, Postural training, Flexibilty training, Gait and locomotor training, Neuromotor development, Active ROM and Dynamic Lumbar Stabilization For the Purpose of:: To decrease pain, To improve nutrient delivery to tissue, To improve muscle performance and motor function, To improve ability to perform ADL's, To increase tolerance to activity/condition/position, To improve performance and independence with ADL's, To decrease level of supervision to perform tasks, To improve ability of physical actions for home/community/work/leisure, To improve gait and locomotor functions, To improve health of tissue, To improve endurance, To improve balance and To improve safety with gait Functional Training to Include: Gait training For the Purpose of:: To improve gait and locomotor functions and To improve safety with gait Text: Thank you for the opportunity to evaluate your patient. For Medicare and Medicare HMO plans, please review the plan of care and approve it. It will need to be FAXED BACK to us at [phone] for Medicare purposes. For Medicare only, by signing this I certify the plan of care. Please let me know if there are questions or concerns regarding this plan of care. Physician Signature: Date:
--- NOTE | 2025-01-27 12:52 | HP.PTDCSUM ---
Discharge Summary D/C summary: It has been my pleasure to treat FREDDIE DUMONT referred by Dr. Christian Hernandez MD, with the diagnosis of PD for a total of 9 visit(s). Discharge Date: 01/27/25 Please see the following information for a summary of their discharge status. Subjective Subjective: reports that it is hard for her to get him into the car and get to PT. reports that he is having freezing episodes with gait and turning to back into a chair. Pt reports that he is doing about same. He still struggles with stiffness in his muscle and just getting around. Pain L hip pain: Pain Intensity (Out of 10): Unrated Overall Improvement % Improvement: 20 Objective Objective/Function: 6 minute walk test w/FWW and CGA -688 feet (+200 feet from last check) Sit to stand: X5 on first attempt with B UE support with more ease than initial eval. Backing into car and getting legs into the car not improved per Gait: walks with rollator (which pt really likes now) with smaller step length and occ needs vc's to heel to toe gait pattern Goals Goal 1:: I HEP Goal Progress: Progressing Goal 2:: Be able to back into the car and get legs into the car with verbal cues with 50% more ease Goal Progress: Not Progressing Goal 3:: Sit to stand with 1 UE X 5 on first attempts Goal Progress: Goal Met Goal 4:: Be able to walk with more heel to toe gait pattern and stride length with least restrictive device Goal Progress: Progressing Plan Plan: Pt to call Dr about home OT order as they are struggling with bathing and dressing. He is struggling to get off the toilet at times as well and not sure what bars or toilet handles to get to help him. They will also look into getting him a chair at home with handles so that he can sit at the dinner table for meals/activities and not sit/sleep in recliner all the time. D/C Information Discharge Comments: DC PT d/c sentence: If there are questions or concerns regarding this patient's physical therapy, please feel free to call me at [phone]. Thank you for the referral of this patient. Sincerely, Juanis Celestin, MPT Balance/Gait/Functional tests Balance/Special Test Scores Lower Extremity Functional Score: 11 TUG Test Time Seconds: 33.27 Tug Test: >30sec.=impaired mobility 6 Minute Walk Test: 688 feet/ 209 meters (37% of normative range) Improvement % Improvement: 20
== END 2025-01-27 19:00 | disposition home or self-care (01) ==
LOC: PT 12:00
PROVIDERS: PCP Family Medicine; Referring Provider Psychiatry & Neurology Neurology; Visit Provider Psychiatry & Neurology Neurology
DX: G20.A1 Parkinson's disease without dyskinesia, without mention of fluctuations (principal); G90.3 Multi-system degeneration of the autonomic nervous system
CPT/HCPCS: 97110; 97162; 97530

== ENCOUNTER → 2025-02-17 | Outpatient (CLI) | payer MEDICARE, BC, SELFPAY ==
[2024-10-05 07:18] VITALS: BMI 29.9
== END | disposition home or self-care (01) ==
LOC: LAB 14:58
PROVIDERS: PCP Family Medicine; Referring Provider Nurse Practitioner Family; Visit Provider Nurse Practitioner Family
DX: J47.9 Bronchiectasis, uncomplicated (principal)